=== PATIENT | female | born 2000 | race Caucasian/White ===

== ENCOUNTER 2023-10-17 08:24 | Outpatient (OUT) | payer MEDICAID, SELFPAY ==
--- NOTE | 2023-10-17 08:26 | US_ITS ---
The [address] [address] Patient Name: SHERLY ERICKSON MRN: [id number] date: 2000 Sex: F Assigned Patient Location: [facility] Current Patient Location: [facility] Accession/Order Number: [id number] Exam Date: 10/17/2023 08:27 Report Date: 10/17/2023 13:14 At the request of: JACKIE FOREMAN Procedure: US pelvis w/ transvaginal EXAM: US pelvis w/ transvaginal HISTORY: PCOS COMPARISON: CT abdomen and pelvis 09/13/2020. TECHNIQUE: Real-time transabdominal and transvaginal imaging of the pelvis. Findings: The uterus measures 9.0 x 4.2 x 6.0 cm. The uterus is retroverted. No intrauterine mass. The endometrium is 0.8 cm thick. No fluid within the endometrial canal. Nabothian cysts. The right and left ovaries measure 3.5 x 2.4 x 3.6 and 3.9 x 2.4 x 2.0 cm. There are unremarkable bilaterally with blood flow is identified. No adnexal mass or free pelvic fluid. Pressure 1. Unremarkable sonographic appearance of the pelvis. Electronically authenticated by: MICHELLE MACKEY Date: 10/17/2023 13:14
== END 2023-10-17 08:25 | disposition home or self-care (01) ==
LOC: NOMS 08:24
PROVIDERS: PCP Family Medicine; Visit Provider Obstetrics & Gynecology
DX: E28.2 Polycystic ovarian syndrome (principal)
CPT/HCPCS: 76830; 76856

== ENCOUNTER 2024-06-07 12:35 | Outpatient (OUT) | payer MEDICAID, SELFPAY ==
--- NOTE | 2024-06-07 | US_ITS ---
[address] [address] Patient Name: SHERLY ERICKSON MRN: [id number] date: 2000 Sex: F Assigned Patient Location: [facility] Current Patient Location: [facility] Accession/Order Number: [id number] Exam Date: 06/07/2024 12:40 Report Date: 06/07/2024 15:30 At the request of: JACKIE FOREMAN Procedure: US OB transvaginal EXAMINATION: US OB transvaginal HISTORY: MISSED MENSES COMPARISON: No relevant comparison available. FINDINGS: Transvaginal imaging Smith intrauterine gestation Gestational sac: 2.56 cm, 7 weeks 2 days CRL: 1.70 cm, 8 weeks 1 day Yolk sac: 4.3 mm Heart rate: 160 beats minute Cervix: Closed, 4.66 cm The uterus is normal, retroverted, retroflexed The right ovary is normal measuring 3.2 x 2.6 x 1.5 cm. Left ovary is not visualized Clinical age: 8 weeks 6 days Clinical MIKE: 01/07/2025 Ultrasound age: 8 weeks 1 day Ultrasound MIKE: 01/16/2025 US/US OB transvaginal IMPRESSION: Viable smith intrauterine gestation measuring 8 weeks 1 day Electronically authenticated by: RADHA BALES Date: 06/07/2024 15:30
--- OUTSIDE RECORDS SUMMARY | 2024-06-07 12:56 | XMS_ITS | CCD ---
Author Organization [facility] Care Team Providers Care [employer] Person Name Role Phone Anthony Gomez MD Primary Care Provider Unavailable Primary Care Provider UnavailKENYA Gonzales Attending Unavailable PROVIDER, UNKNOWN Admitting Unavailable CELESTE, JACKIE Attending Unavailable CELESTE, JACKIE Attending Unavailable CELESTE, JACKIE Attending Unavailable Anthony Gomez Primary Care Unavailable CELESTE, JACKIE R Attending Unavailable CELESTE, JACKIE R Admitting Unavailable Anthony Gomez Primary Care Unavailable Sreedhar Cheney Attending Unavailable Sreedhar Cheney Admitting Unavailable Anthony Gomez Primary Care Unavailable Pam Gao Attending Unavailab Pam Vuong Admitting Unavailab arlen Tellez PAC, Spenser Gallegos Attending Unavailable Tellez PAC, Spenser Gallegos Admitting Unavailable Anthony Gomez Primary Care Unavailable Anthony Gomez Primary Care Unavailable Anthony Gomez Primary Care Unavailable CELESTE, JACKIE R Attending Unavailable CELESTE, JACKIE R Admitting Unavailable Anthony Gomez Primary Care Unavailable CELESTE, JACKIE R Admitting Unavailable CELESTE, JACKIE R Attending Unavailable Anthony Gomez Primary Care Unavailable Anthony Gomez Attending Unavailable Antohny Gomez Primary Care Unavailable CELESTE, JACKIE R Admitting Unavailable CELESTE, JACKIE R Attending Unavailable Anthony Gomez Primary Care Unavailable CELESTE, JACKIE R Admitting Unavailable CELESTE, JACKIE R Attending Unavailable Allergies Allergy Classification Reported Allergen(s) Allergy Type Date of Onset Reaction(s) Facility (1 source) No Known Medication Allergies; Translations: [No Known Medication Allergies] Propensity to adverse reactions to drug (disorder) [facility] Repository Medications Current Medications Medication Drug Class(es) Dates Sig (Normalized) Sig (Original) amoxicillin 500 mg oral tablet (2 sources) Penicillin-class Antibacterial Start: 09-30-2023 End: 10-10-2023 take 1 tablet by mouth in the morning, then take 1 tablet by mouth in the evening, then take 1 tablet by mouth at bedtime amoxicillin (Amoxil) 500 MG tablet Take 500 mg by mouth in the morning and 500 mg in the evening and 500 mg before bedtime. 0 09/30/2023 10/10/2023 Active 24 hr metFORMIN hydrochloride 500 mg extended release oral tablet (2 sources) Biguanide Start: 10-06-2023 End: 11-05-2023 take 1 tablet by mouth every twenty-four hours at mealtime metFORMIN XR (Glucophage-XR) 500 MG 24 hr tablet Indications: Irregular periods/menstrual cycles , Insulin resistance Take 1 tablet (500 mg) by mouth in the evening. Take with meals Do not crush, chew, or split. 30 tablet 11 10/06/2023 11/05/2023 Active Problems Problem Classification Problem Date Documented Da te Episodic/Chronic Disorders of teeth and jaw (4 sources) Tooth eruption disorder; Translations: [Disturbances in tooth eruption] Onset: 04-24-2024 04-24-2024 Episodic Menstrual disorders (2 sources) Irregular periods; Translations: [Irregular menstruation, unspecified] 10-04-2023 Chronic Other endocrine disorders (2 sources) Polycystic ovary syndrome; Translations: [Polycystic ovarian syndrome] 10-06-2023 Chronic Other nutritional; endocrine; and metabolic disorders (2 sources) Insulin resistance; Translations: [Insulin resistance] 10-06-2023 Chronic Results Test Name Value Interpretation Reference Range Facility Coding Summaryon 06-05-2024 [facility] AsrszdgyHYo2dVh+PGhlYW Q+OG4DEDYzW75ruUSjmJ0z I8WBHVcRUrokOGAUPOsMJu TahbLuQJ6njBWkYKSx IC8+LU2nPAFeKfdcvBJxw3 S4aZH4R18xls0uZNvluPT4 UUKmUjCdkjqra9nbdZe2GC cuNmluOyBt PQOcyW91ZAP5wT73Rh93qL AzpESni7hlrJh5GtKzZWMm KZZ0mKylSOdqk9GbTKCcK8 9kbYOku9D2 OCMqrLeuwQDxUuZpeBZ7pU 1cJAayftwif9lwuuhyIoj9 ds93dOOce8J2xWZ0F4Fmmb Q2RYKcxLLz GdounPNZoZ8agcjlf7bkhj vcBlLzOVRxQAg7INr1GCAp uPrcWrOeKF05RTB9PSSpyy QdK5DtKJRs kUcnYyI9w0A0Ey4TM6UCSu avP2CEIQVHEQvonLK+PC90 dk14K8UeZnsqAth5QZGzMX O1gCS7aB4h OWIoCRarm6M4oGK2L3Pcuj Znhv7qq7idUICpCWpoD04v kFZup8Y5ESKwkOY7OABuvW glHoZewP47 Oyc+SIHzuLkbu6FsWbxzh3 jsv4ipiKy2MmrjFKMrheSe uHesHQR6p2LsOe4yCMIxlV J8eCA6eQ2h IeGtVwM0IHivC507AvOftL UiHsssN95qP2BfgKL+PHRy Ltt3UPAezPfwUI9xB2KtNW RpbmctbGVm kAsrTM2fYDXpqhbkTMWetW 5xSOOyI5g7XsQzMtW6FAui I0SoNJJxljmuNk54rZ9hUd GzWiE6JKgk Z0XaafR7KDDslIXiXEyfWS F6F32wr2P8QNCiMKYaHKL7 gCV8wW4lvOfpydbwjZCxyB sgdmVydGlj DSvwMKmoP116LQLujRpbGb NvZGluZyBEYXRlOiAgMTAv MDEvMjAyNDwvdGQ+PHRkIH M6wNvtFWEl nKMqUIsjBj3uiVjjzHimZR 1wLXXgxivsACXehA9zHWYb dBUtzHbsPN7fRUDrybogk1 47EiTpDZX5 KOUcuLBnP3JyxP9cOwHwAE AuPYTxU1EbaHJfYYwaU281 DTxrOmH6SGIvbsDeF1GaCJ FsaWduOiB0 o5C4Jn4Rb3MryqwqR1EzuX OoHwFuJmvuKDa1H3TdUizm dHI+QK29NKQgMU75MIv0PH B0dWjxXQez LXUdN5NkoC9kLkYnBUFsMI RkOyc+PHRhYmxlIHdpZHRo XZgvOQGhIdAplSxeJQ1qMh 9yZGVyLWNv yJtiwQBzPgEvu6ujTOImZF lyYP8qtFwwM5CndRG1KFIe l2p1Hn85R52bO6CokJB+PG YjwYT7jCY1 oY8yVoEmPzG3SZnrZ418Xv SrvSDsAffxn8kzz3uofWq6 ToO8LUCptlPaaFzlVDY2a0 YrNa00O84b IHdpZHRoPSIxNSUiIHZhbG ldzy3zqG6dHg0+PGNvbCB3 tVH4zT5dFxOvKwZ0BQdvM3 49InRvcCIv Mtmqt2ttq1ddbVl9EbEyCZ ZnenWilBesZEP8c5FrNo10 B2SnsQydq5LnLwt2dy05wF Wma3Y2nEG7 Z1PoKDFwgmhrtUWlgMcuAQ 6tGEQwvuhfUVJbpK9nILQh R0x7NcWkYnE5ROvhR4Citl G1HSZckGLz JYDagLTAwD6ipigjb7cwry vwGeWbYSNeVQh3UWy3CHXy aYvfZrIzWTC5YqE0OUF6yU XwfV5ihTyr dfjyeI7hOud+QNN2lHBbpM DSNC2qMbmusWP+PHRkIHN0 wXwsSUtiYVIcbY0tOTGqO3 p7AvXlGuC8 KTolE3GbeuJ6EBDhyZHrBS RxtPIQwF1pesvuu6eewtyj DpMlMXNbUZy6QFb1RFEgtR duOiBsZWZ0 FyC0UZG6uBHlhW4mbLiftt wkxF6oIjm+QmlydGggRGF0 BFi5J6JfRgu3SXDmrAbfRW 0ncGFkZGlu Xs0krCivyTijFN2xQJYmzf cti347YnHvu8sdFCPmxIHc EHnvBDM5M88yp2X0UAYeWB QfHVZ3pXA8 zY1hgMkwqohvoZUbzKzvwa SjpZnkHTaiIWlwB414LDSw vGcjZxUcLTg0Y4XmKhs8WI PmxZxzYW2l cZQuOTdfLy8zhApycCoxQV 6rCFIpwynqj215OiOaa9eu EJWqfFIrBBvrXTR3M33fo0 U0XTDtZVTi TXG4xZF6hN9gfQhvcquzvF VmdDsgdmVydGljYWwtYWxp L480OPJazXdwXwPupFz1M6 WbJpq7NNJk iKbvMC1xcMZdNOnbPr9evH zhiTbtHY3zPRMwnnvun292 LbLmi7jrLJKbpUXgCXzmLP B3K18so2V7 WRAnJIMhEQI3xFB9kQ2vhM lnbjogbGVmdDsgdmVydGlj VRvrQKhkO669VBCanHncHy BhdGllbnQg TIikYJk4W4IcZcvapBT+PC 21GYEhWT65hESwcWDaz4wo hGa7YfTuLVLkYOS0vUnePV msa3BzBVDa G35quAYwp6N8NCNyrKbczO RgOpRomVK5oB1eALgzpwip n2pqyrqaPlgne9twgo34tJ 27G94rPPqg ZHRoPSIzMCUiIHZhbGlnbj 4lpF9fXo2+WYYwgVC5cEG2 iD2wKMKdQsY0ZDppL206Ld RvcCIvPjxj g9rjy7zqhAr5FsR1WNJids LjiJspANQ1l0VqOz32A39n IHdpZHRoPSIyMCUiIHZhbG czpb0ueS6k Ii8+VIPmkDM6pXM2eQ6lOo WlRvP3MOjtU900XpMetGVn KsyrS30fZ5LjsID+PHRyPj f7FSHwnVsb HA0uwWXgKHvvMd7qKPK4Cv KxIcZwESanW8AwWDEauwsj xxlkbPX2XXLoHWCdmY22Gd 9udDogMTBw zNIIcP5diyvtt7phsvgdFv WwEMOnAXl0EYw0VGTrhXsd WbZfVXC5RnO5ITN1yHNyrA 1hbGlnbjog sA4eG0OaUPJknziqIy59kE 5iNhMaUrS3BLgcNma+Q1JB G5ZPHoMbGTDEYUICUuXePX lDSEVMTEU8 J7UzCrb7ONUgqXuxQW4tdU OpTLwtJu2epLrsuRucYP1d FJCfeqyySSWptK1wZPIkgE XcbYjrMJ1q BYCvygvxq707AmAvMCR0JZ MglXSdA9ZglT1mYlWqMFIb KUBcE3VebYUdNPazA903IA bcZlS4DIWx axFjT7VuYIVtqIfkJkI7v1 A0Ko6sOb6jLU9vHOw3XS93 ZU19sJZbq5B7mJB3J7MjCZ Rpbmctcmln pPJ9ZIHxSARjdK44pFMzFB yxHd2uf0X9n790FZChPAYv xJ23Lq6lwRpcLJLyiJYWtE 4yymctz2tc xidaCjKnDXUqZRf7PDh9LF GweCboMvZvGXC3CaT7OKN3 iGMllV2hzSkywhszvM0kZu c+MjYgWWVh rtW1W5QrOqu1SCEywAmoSF 5huJCzEAlmTu1mpOovtMdx PJ5yZSYcqjljWGYkkG9mDO JvdHRvbTog ZZ4qTJLmwgctw358BoFkRI H7TFFieDDtL5RdbK0wBjLx JRItXLRyO8DyaIIxUHzfC7 47JZmjChU6 JHLxaxEcJ1PhUQGdpKwvFf O3o4U5Hr1UZQ8OKFQ8E8We Ivi8XZSoeKhcJB6ccYFcHI diHd4gyXcl mHpiSD9tIVDooppsGGWopT 1dHYJasWAcaYhvZZ4oZXMy qguub492PrJxJLA2XBXlgR IbB6FcvI6i WjCcUOEbIMMkQ5RvzBTjFK grG529QKigZcE6HSJdcaZe F1IyHTPhbMbsVdX6c3Z0Wr 5PUDwvdGQ+ SD67nm41W6YtMxozDnu2BI XkZRV1aKC7sN4dQNKeLNxu n1B8wJG4J7FcllOnom0cs9 xsYXBzZTog R66qiIBmt9M2JIAimWF6EM NscLscHiPulS46Mvt+PGNv mHvdu6LoDgmac0ueg2litD h3YiOuRISk egPzfXvpFQD9p4PnCk15Y0 9sIHdpZHRoPSIzMCUiIHZh sSzhsv7wrV7aTf2+PGNvbC T8fYD1gQ2q EqXdIqK4UXdtO175McLilC MtSkafj4itc8senJk0PmIp WFIuwmEhcSyuCMK1c7XdFc 28U7NqwGuw n5DcSpw7zh91nXSxq4S6xL T0X5DlZEMlezuykMDmiLry SQ2iXBHfloiuBYFgwE2cGK SzM7f7RrBy BwV5XGnpG7RhalN5DIKoaH VsFEPrqRXBzO3ldjyni0fu voupVnTbUUWcLOg8LHh1RQ FsaWduOiBs TRS1FwW5HQK3sJZrrY0fhF cfvbivrO7xXek+JDn2v2yq pFIxIY6khMO4PR53BQ44kO Cji1I6kAK5 D0UbSBXfglwnduvibFD2QK JrCEExiE89We1pjLlzWi7k HXZtLUG7NNNvmZJoQ4PrfY 9yOiAjMDAw WYFbD3KyhWHvBZaeE150CW kpBhB0YFKzjxPfV2WyJAZe qIqbXvF2g4T0Qm6MQO52SE 23NV43jKNr a3Y3kMC6Q6FsCLNbibqsvr omqBK1UYQxNOTghN82Cp7i jNylSp5fEUIaTRM1KVKkcQ ZfZ3TnjV8u QwEhEGOuFYYoL7XxyJKqKE bxN366OYbfBwY1WCEgzsIx R1PrYQUfhTrgGhX8y2D0Wf 1DCi21NF74 DH70dXTer7W0zDJ3C0NtVF QmzczatadvwPF7TZGdJKCy sZ46Hp0qeCtfUq1lVJRrJP W5ZUWqfDNm H0GvsK1sFsIxZJLfUKIiH9 LuiSQbVXchA217UGkoOnE3 HCGkbuEmW5XtREDfhOzcRe M2q1D6Ir8W DMlihfj7W1MeXvfoiWG+PC 92OLNgXO02cCEdmWBch2qd mCg6DxLqYWNtISB5bPplIK laa3SzYNPc Y29 (more content not included)... [facility] Office/Clinic Noteon 024 Office/Clinic Note Patient: BONNIE ASTUDILLO Age: 24 years Sex: FEMALE : 2000 Associated Diagnoses: Sciatica of left side Author: Anthony Gomez MD A History of Present Illness 24-year-old female is currently 6 weeks presents today follow-up recent ER visit for low back pain. Is more localized in her left gluteal region radiating down her left leg. More consistent with sciatica. She did have an ultrasound which showed a viable 6-week . Her uterus is retroverted. Denies any trauma. Pain is worse when sitting. Does shoot down her leg. Also when her leg is stretched. No trauma. This is her second first delivered naturally. Review of Systems Constitutional: Negative. Respiratory: Negative. Cardiovascular: Negative. Musculoskeletal: Negative except as documented in history of present illness. Health Status Allergies: Allergic Reactions (Selected) No Known Medication Allergies, Allergies (1) Active Severity Reaction No Known Medication Allergies None Documented Current medications: (Selected) Documented Medications Documented MetFORMIN (Eqv-Glucophage XR) 500 mg oral tablet, extended release: 500 mg = 1 tab(s), Oral, Daily, 0 Refill(s) escitalopram 10 mg oral tablet: 10 mg = 1 tab(s), Oral, Daily, 30 tab(s), 0 Refill(s) Physical Examination VS/Measurements Vital Signs 06/01/2024 13:30 EDT Peripheral Pulse Rate 68 bpm Systolic Blood Pressure 120 mmHg Diastolic Blood Pressure 80 mmHg BP Site Left arm SpO2 99 % , Measurements from flowsheet : Measurements 06/01/2024 13:30 EDT Height 170.0 cm Height/Length Measured (inches) 66.93 in Weight 113.04 kg Weight Measured (lbs) 249.21 lb Weight Dosing 113.040 kg Body Mass Index 39.11 kg/m2 [place] Body Weight Calculated 61.437 kg BSA Measured 2.31 m2 General: Alert and oriented, No acute distress. Musculoskeletal: Positive point tenderness over the left gluteal region as compared to the right. Positive straight leg raise. Positive piriformis muscle sign with external rotation of the hip with adduction towards the opposite shoulder.. Impression and Plan Diagnosis Sciatica of left side ([id number] M54.32). Plan: Discussed with patient stretches she can do to help with her sciatica. They were demonstrated in the office. Will hold off on any steroids.. Orders Orders Evaluation and Management: [id number] Office visit - established pt, Level 3 (Order): 06/01/2024 13:28 EDT, Qty: 1, Sciatica of left side. [Electronically Signed on: 06/01/2024 13:56 EDT] Anthony Gomez MD [Verified on: 06/01/2024 13:56 EDT] Anthony Gomez MD Normal [facility] .Auto Diff 1on 05-28-2024 Auto [place] % 5 % Normal -12 [facility] Comment on above: Performed By: #### 1 [id number], [id number], [id number], [id number] ####[facility] (DEFAULT)[address] [place] [address] Baso Abs# 0.1 x10 Normal 0.0-0.2 [facility] Comment on above: Performed By: #### 1 [id number], 5301697, [id number], [id number] ####[facility] (DEFAULT)[address] [place] [address] Basophils/100 WBC (Bld) 0.6 % Normal 0.2-2.0 [facility] Comment on above: Performed By: #### 1 [id number], 8958508, 3850387, [id number] ####[facility] (DEFAULT)[address] [place] [address] Eos Abs# 0.3 x10 Normal 0.0-0.4 [facility] Comment on above: Performed By: #### 1 [id number], 3797248, 7436008, [id number] ####[facility] (DEFAULT)[address] [place] [address] Eosinophils/100 WBC (Bld) 2.5 % Normal 0.9-4.0 [facility] Comment on above: Performed By: #### 1 [id number], 3141187, 6967991, [id number] ####[facility] (DEFAULT)[address] [place] [address] Lymph Abs# 3.6 x10 High 1.3-2.9 [facility] Comment on above: Performed By: #### 1 [id number], 5105450, 9488501, [id number] ####[facility] (DEFAULT)[address] [place] [address] Lymphocytes/100 WBC (Bld) 27 % Normal 14-48 [facility] Comment on above: Performed By: #### 1 [id number], 8007741, 6820739, [id number] ####[facility] (DEFAULT)[address] [place] [address] [place] Abs# 0.7 x10 Normal 0.0-0.8 [facility] Comment on above: Performed By: #### 1 [id number], 3074161, 6834207, [id number] ####[facility] (DEFAULT)[address] [place] [address] Neut Abs# 8.4 x10 Normal 1.5-9.2 [facility] Comment on above: Performed By: #### 1 [id number], 3265297, 7408218, [id number] ####[facility] (DEFAULT)[address] [place] [address] Neutrophils/100 WBC (Bld) 64 % Normal 44-88 [facility] Comment on above: Performed By: #### 1 [id number], 1096993, 3668364, [id number] ####[facility] (DEFAULT)[address] [place] [address] CBC w/ Auto Diffon 4 Man Diff? Auto Invalid Interpretation Code [facility] Comment on above: Performed By: #### 1 [id number], 7810968, 9696890, [id number] #### [facility] (DEFAULT) [address] [place] [address] Erythrocyte distribution width (RBC) [Ratio] 13.6 % Normal 11.5-15.0 [facility] Comment on above: Performed By: #### 1 [id number], 6327549, 5453525, [id number] #### [facility] (DEFAULT) [address] [place] [address] Hematocrit (Bld) [Volume fraction] 42.0 % High 33.7-40.4 [facility] Comment on above: Performed By: #### 1 7560893, 1577491, 5674783, [id number] #### [facility] (DEFAULT) [address] [place] [address] Hemoglobin (Bld) [Mass/Vol] 13.8 g/dL Normal 11.3-15.9 [facility] Comment on above: Performed By: #### 1 [id number], 4275359, 3261633, [id number] #### [facility] (DEFAULT) [address] [place] [address] 57667 MCH (RBC) [Entitic mass] 28 pg Normal 24-34 [facility] Comment on above: Performed By: #### 1 4798985, 8942527, 6280775, [id number] #### [facility] (DEFAULT) [address] [place] [address] 51502 MCHC (RBC) [Mass/Vol] 33 g/dL Normal 26-37 [facility] Comment on above: Performed By: #### 1 [id number], 8580251, 8080761, [id number] #### [facility] (DEFAULT) [address] [place] [address] 25810 MCV (RBC) [Entitic vol] 86 fL Normal 81-100 [facility] Comment on above: Performed By: #### 1 4381449, 6712611, 7505048, [id number] #### [facility] (DEFAULT) [address] [place] [address] 94179 Platelet 352 x10 Normal 138-427 [facility] Comment on above: Performed By: #### 1 [id number], 5007365, 5314137, [id number] #### [facility] (DEFAULT) [address] [place] [address] 24917 Platelet mean volume (Bld) [Entitic vol] 7.8 fL Normal 6.3-10.2 [facility] Comment on above: Performed By: #### 1 7221446, 8211301, 1597120, [id number] #### [facility] (DEFAULT) [address] [place] [address] RBC 4.90 x10 Normal 3.70-5.30 [facility] Comment on above: Performed By: #### 1 [id number], 4133975, 1222259, [id number] #### [facility] (DEFAULT) [address] [place] [address] WBC 13.1 x10 High 3.5-10.5 [facility] Comment on above: Performed By: #### 1 [id number], 0359750, 7642330, [id number] #### [facility] (DEFAULT) [address] [place] [address] CMP Standardon 05-28-2024 eGFR Non AA >60 Invalid Interpretation Code [facility] Comment on above: Performed By: #### 1 [id number], 5139638, 6241834, [id number] ####[facility] (DEFAULT)[address] [place] [address] 13953 eGFR AA >60 Invalid Interpretation Code [facility] Comment on above: Performed By: #### 1 [id number], 7063885, 2225562, [id number] ####[facility] (DEFAULT)[address] [place] [address] 67927 Albumin [Mass/Vol] 4.4 g/dL Normal 3.5-5.0 [facility] Comment on above: Performed By: #### 1 [id number], 2535613, 2577505, [id number] ####[facility] (DEFAULT)[address] [place] [address] 34210 Albumin/Globulin [Mass ratio] 1.2 {ratio} Low 1.4-2.6 [facility] Comment on above: Performed By: #### 1 [id number], 9459752, 8345374, [id number] ####[facility] (DEFAULT)[address] [place] [address] 83858 Alk Phos 46 IU/L Normal 32-91 [facility] Comment on above: Performed By: #### 1 [id number], 1547503, 4092381, [id number] ####[facility] (DEFAULT)[address] [place] [address] 94202 ALT [Catalytic activity/Vol] 29.0 U/L Normal 14.0-54.0 [facility] Comment on above: Performed By: #### 1 8854081, 5657954, 5581503, [id number] ####[facility] (DEFAULT)[address] [place] [address] 72666 Anion gap [Moles/Vol] 11.4 mmol/L Normal 5.0-19.0 [facility] Comment on above: Performed By: #### 1 3218619, 5300816, 7029489, [id number] ####[facility] (DEFAULT)[address] [place] [address] 14084 AST [Catalytic activity/Vol] 30 U/L Normal 15-41 [facility] Comment on above: Performed By: #### 1 3898960, 3989526, 0859855, [id number] ####[facility] (DEFAULT)[address] [place] [address] 01427 Bili Total 0.4 mg/dL Normal 0.3-1.2 [facility] Comment on above: Performed By: #### 1 0850181, 6962505, 3909882, [id number] ####[facility] (DEFAULT)[address] [place] [address] 37373 Calcium [Mass/Vol] 8.9 mg/dL Normal 8.9-10.3 [facility] Comment on above: Performed By: #### 1 [id number], 5068076, 2861538, [id number] ####[facility] (DEFAULT)[address] [place] [address] 21022 Chloride [Moles/Vol] 104 mmol/L Normal 101-111 [facility] Comment on above: Performed By: #### 1 6953030, 6087822, 6279292, [id number] ####[facility] (DEFAULT)[address] [place] [address] 59894 CO2 [Moles/Vol] 20 mmol/L Low 21-32 [facility] Comment on above: Performed By: #### 1 8498436, 6839369, 7898509, [id number] ####[facility] (DEFAULT)[address] [place] [address] 01456 Creatinine [Mass/Vol] 0.66 mg/dL Normal 0.60-1.30 [facility] Comment on above: Performed By: #### 1 2796643, 6987930, 5158959, [id number] ####[facility] (DEFAULT)[address] [place] [address] 33716 Globulin (S) [Mass/Vol] 3.5 g/dL Normal 1.5-4.3 [facility] Comment on above: Performed By: #### 1 5701518, 5158882, 0893515, [id number] ####[facility] (DEFAULT)[address] [place] [address] 29589 Glucose [Mass/Vol] 100.0 mg/dL Normal 74.0-118.0 [facility] Comment on above: Performed By: #### 1 [id number], [id number], [id number], [id number] ####[facility] (DEFAULT)[address] [place] [address] 62849 Osmolality 263 mOsm/L Invalid Interpretation Code [facility] Comment on above: Performed By: #### 1 [id number], [id number], [id number], [id number] ####[facility] (DEFAULT)[address] [place] [address] 67947 Potassium [Moles/Vol] 3.4 mmol/L Low 3.6-5.1 [facility] Comment on above: Performed By: #### 1 [id number], [id number], [id number], [id number] ####[facility] (DEFAULT)[address] [place] [address] 72013 Protein [Mass/Vol] 7.9 g/dL Normal 6.5-8.1 [facility] Comment on above: Performed By: #### 1 [id number], [id number], [id number], [id number] ####[facility] (DEFAULT)[address] [place] [address] 28348 Sodium [Moles/Vol] 132.0 mmol/L Low 136.0-144.0 [facility] Comment on above: Performed By: #### 1 [id number], [id number], [id number], [id number] ####[facility] (DEFAULT)[address] [place] [address] 16552 Urea nitrogen [Mass/Vol] 9 mg/dL Normal 8-26 [facility] Comment on above: Performed By: #### 1 [id number], [id number], [id number], [id number] ####[facility] (DEFAULT)[address] [place] [address] 39758 Urea nitrogen/Creatinine [Mass ratio] 13.6 mg/mg Normal 4.6-16.2 [facility] Comment on above: Performed By: #### 1 [id number], [id number], [id number], [id number] ####[facility] (DEFAULT)[address] [place] [address] 03772 ED Clinical Summaryon 2023 ED Clinical Summary [facility] - Emergency Department [address] [place] [address] ED Clinical Summary PERSON INFORMATION Name: BONNIE ASTUDILLO Age: 24 Years Sex: FEMALE : 2000 MRN: Acct#: Visit Reason: Back pain; Abdominal pain - ; ABD PAIN LT SIDE, LT LEG NUMB Arrival: 05/28/2024 14:14:57 Discharge: 05/28/2024 17:55:00 LOS: 000 03:41 Check In: 05/28/2024 14:14:57 Checkout:05/28/2024 17:55:00 Address: [address] [place], [place] [id number] PCP: Jason MCNEAL, Anthony Santo PROVIDER INFORMATION Provider Role Assigned Unassigned Evonne Cheung PA-C ED PA 05/28/2024 14:19:07 Daisy Freire CHEMISTRY INTERN Nurse 05/28/2024 14:26:14 VITALS INFORMATION Vital Sign Triage Latest Temperature Tympanic Temperature Temporal Artery Pulse Rate 75 bpm 78 bpm O2 Sat 100 % 99 % Respiratory Rate 16 br/min 16 br/min Blood Pressure /69 mmHg /69 mmHg MEDICAL INFORMATION Medications Given: Medication Dose Route acetaminophen (Tylenol) 1000 mg Oral Allergy Information: No Known Medication Allergies PHYSICIAN DOCUMENTATION DISCHARGE INFORMATION: Discharge Disposition: Home Discharge Location: Home PATIENT EDUCATION INFORMATION Instructions: Muscle Strain, [id number]; Sciatica, Tsgo-ku-Cokj; Back Exercises, Anjz-vk-Djeu Follow-Up: With: Address: When: Anthony Gomez MD [address] [place] [address] Within 3 to 5 days DIAGNOSIS: 1:6 weeks gestation of ; 2:Low back pain with left-sided sciatica; 3:Pain in the side Patient Understands: Yes - Patient/family/caregiv er verbalizes understanding of instructions given Comment: [facility] ED Clinical Summary [facility] ? Urgent Care [address] [place] [address]53 Clinical Summary PERSON INFORMATION Name: BONNIE ASTUDILLO Age: 24 Years Sex: FEMALE : 2000 MRN: Acct#: Visit Reason: UC - Abdominal Pain; LT SIDE PAIN, LEG PAIN Arrival: 05/28/2024 14:07:02 Discharge: 05/28/2024 14:10:00 LOS: 000 00:03 Check In: 05/28/2024 14:07:02 Checkout: 05/28/2024 14:10:00 Address: [address] [place], [place] [id number] PCP: Anthony Gomez MD PROVIDER INFORMATION Provider Role Assigned Unassigned Spenser Fang ED PA 05/28/2024 14:10:16 VITALS INFORMATION Vital Sign Triage Latest Temperature Tympanic Temperature Temporal Artery Pulse Rate O2 Sat Respiratory Rate Blood Pressure / / MEDICAL INFORMATION Medications Given: Allergy Information: No Known Medication Allergies PHYSICIAN DOCUMENTATION DISCHARGE INFORMATION: Discharge Disposition: Home Discharge Location: PATIENT EDUCATION INFORMATION Instructions: Follow-Up: DIAGNOSIS: Abdominal pain, acute, left upper quadrant; Acute left flank pain; Currently Patient Understands: Comment: [facility] ED Note-Nursingon 05-28-2024 ED Note-Nursing Compliance Administrator at bedside while US was performed. pt tolerated well [facility] ED Note-Nursing Pt ambulatory back t o ED RM 6 C/O left leg pain, numbness and tingling that started 3 days ago. Pt also C/O LUQ pain that started today that radiates to her back. Pt last period started on apr 07, 2024, pt had two positive test. pt denies N/V, diarrhea. pt denies taking any medication due to being . Pt stated i googled and think its muscle/ nerve pain, cause i have numbness and tingling in my feet Pt denies any falls or injuries. Pt is A/Ox4 call light within reach [facility] ED Patient Summaryon 024 ED Patient Summary [facility] - Emergency Department [address] [place], [place] [id number] PATIENT DISCHARGE INSTRUCTIONS Patient Information Name: BONNIE ASTUDILLO Age: 24 Years Date of : 2000 Reason For Visit: Back pain; Abdominal pain - ; ABD PAIN LT SIDE, LT LEG NUMB Arrival Time: 05/28/2024 14:14:57 Primary Care Physician: Anthony Gomez MD Attending Physician: Pam Gao MD Comment: Visit Diagnosis: Diagnoses This Visit 6 weeks gestation of (Z3A.01) Abdominal pain - ([id number]) Back pain ([id number]) Low back pain with left-sided sciatica (M54.42) Pain in the side (R10.9) The Pharmacy at [facility] is open Tuesday through Tuesday from 9A to 6P and Tuesday and Tuesday from 9A to 5P Prescription Information: If you have been given a prescription for narcotics, seek immediate medical attention if you have any difficulty breathing or any sudden status changes such as confusion and sleepiness. If you or anyone you know is experiencing suicidal thoughts, mental health, alcohol and/or drug addiction problems; contact the [facility] [place] 28/03 Crisis Hotline -Text 4HEMI oc 842206. If you received any narcotics, sedation, or any other medication that causes drowsiness for the next 24 hours, unless otherwise directed: ? Do not drive a car. ? Do not operate machinery such as power tools, lawn mowers, drills, sewing machines, or stoves ? Avoid alcoholic beverages and drugs for allergies, nerves, or sleep ? Do not make important personal or business decisions or sign any legal documents With: Address: When: Jason MCNEAL, Anthony Santo [address] [place], [place] [id number] Within 3 to 5 days Medication Information: The exam and treatment you received today in the [facility] Emergency Department were for an urgent problem and are not intended as complete care. It is important for you to follow up with a doctor, nurse practitioner, or physician?s life enrichment assistant for ongoing care. If your symptoms become worse or you do not improve as expected and you are unable to reach your usual health care provider, you should return to the Emergency Department, we are available 24 hours a day. For those patients who have received Radiology results, the interpretation of your X-ray as given to you by our Emergency Department physician is only a preliminary report. The Radiologist will review your films and if there is a change in the diagnosis you will be notified by phone. Please make sure you have provided a working phone number so we can reach you if necessary. In the event that you had a lab culture while you were a patient in the Emergency Department, you will be notified by phone if there is a need to change your antibiotic. Please make sure you have provided a working phone number so we can reach you if necessary. [facility] Emergency Department has provided you with a complete list of medications post discharge. Please inform your slope hoist operator/provider of your visit and for further instruction on these medications. Any specific questions regarding your chronic medications and dosages should be discussed with your primary care physician(s) and/or pharmacist. Additional medications on your home medication list not specifically addressed. Please contact the ordering physician if you have questions about these medications. escitalopram (escitalopram 10 mg oral tablet) 1 tab(s) Oral (given by mouth) every day. metFORMIN (MetFORMIN (Eqv-Glucophage XR) 500 mg oral tablet, extended release) 1 tab(s) Oral (given by mouth) every day. Visit Information Allergies: Substance Reaction Symptoms Type Comments No Known Medication Allergies Drug Vital Signs: Vitals and Measurements this Visit (last charted value for your 05/28/2024 visit) Vital Signs This Visit Temperature Oral: 36.8 DegC Peripheral Pulse Rate: 78 bpm Heart Rate Monitored: 58 bpm Respiratory Rate: 16 br/min Systolic Blood Pressure: 91 mmHg Diastolic Blood Pressure: 60 mmHg Mean Arterial Pressure, Cuff-Calculation: 70 mmHg Mean Arterial Pressure Cuff-Monitor: 72 mmHg SpO2: 99 % Oxygen Therapy: Room air Measurements This Visit Height/Length Measured: 170 cm Weight Measured: 108.86 kg Weight Dosin.860 kg Body Mass Index: 37.67 kg/m2 Problems List: Problem Onset Comments Depression None Polycystic ovarian syndrome Patient Education Muscle Strain A muscle strain, or pulled muscle, happens when a muscle is stretched beyond its normal length. This can tear some muscle fibers and cause pain. Usually, it takes 1?2 weeks to heal from a muscle strain. Full healing normally takes 5?6 weeks. What are the causes? This condition is caused when a sudden force is placed on a muscle and stretches it too far. This can happen (more content not included)... Normal [facility] ED Patient Summary [facility] ? Urgent Care [address] [place] [address] PATIENT DISCHARGE INSTRUCTIONS Patient Information Name: BONNIE ASTUDILLO Age: 24 Years Date of : 2000 Reason For Visit: UC - Abdominal Pain; LT SIDE PAIN, LEG PAIN Arrival Time: 05/28/2024 14:07:02 Primary Care Physician: Anthony Gomez MD Attending Physician: Spenser Fang Comment: Patient Education Medication Information: The exam and treatment you received today in the [facility] Emergency Department were for an urgent problem and are not intended as complete care. It is important for you to follow up with a doctor, nurse practitioner, or physician?s life enrichment assistant for ongoing care. If your symptoms become worse or you do not improve as expected and you are unable to reach your usual health care provider, you should return to the Emergency Department, we are available 24 hours a day. For those patients who have received Radiology results, the interpretation of your X-ray as given to you by our Emergency Department physician is only a preliminary report. The Radiologist will review your films and if there is a change in the diagnosis you will be notified by phone. Please make sure you have provided a working phone number so we can reach you if necessary. In the event that you had a lab culture while you were a patient in the Emergency Department, you will be notified by phone if there is a need to change your antibiotic. Please make sure you have provided a working phone number so we can reach you if necessary. [facility] Emergency Department has provided you with a complete list of medications post discharge. Please inform your slope hoist operator/provider of your visit and for further instruction on these medications. Any specific questions regarding your chronic medications and dosages should be discussed with your primary care physician(s) and/or pharmacist. Medications to Continue That Have Not Changed Other Medications escitalopram (escitalopram 10 mg oral tablet) 1 tab(s) Oral (given by mouth) every day. metFORMIN (MetFORMIN (Eqv-Glucophage XR) 500 mg oral tablet, extended release) 1 tab(s) Oral (given by mouth) every day. Visit Information Visit Diagnosis: Diagnoses This Visit Abdominal pain, acute, left upper quadrant (R10.12) Acute left flank pain (R10.9) Currently (Z34.90) UC - Abdominal Pain ([id number]) If you received any narcotics, sedation, or any other medication that causes drowsiness for the next 24 hours, unless otherwise directed: ? Do not drive a car. ? Do not operate machinery such as power tools, lawn mowers, drills, sewing machines, or stoves ? Avoid alcoholic beverages and drugs for allergies, nerves, or sleep ? Do not make important personal or business decisions or sign any legal documents Reason for Visit: Allergies: Substance Reaction Symptoms Type Comments No Known Medication Allergies Drug Vital Signs: Vitals and Measurements this Visit (last charted value for your 05/28/2024 visit) No vitals and measurements documented Problems List: Problem Onset Comments Depression None Polycystic ovarian syndrome Major Tests and Procedures: The following procedures and tests were performed during your ED visit. Laboratory Radiology Cardiology Viruses or Bacteria What?s got you sick? Antibiotics only treat bacterial infections. Viral illnesses cannot be treated with antibiotics. When an antibiotic is not prescribed, ask your healthcare professional for tips on how to relieve symptoms and feel better. Usual Cause Illness Viruses Bacteria Antibiotic Needed Cold/Runny Nose NO Bronchitis/Chest Cold (in otherwise healthy children and adults) NO Whooping Cough Yes Flu NO Strep Throat Yes Sore Throat (except strep) NO Fluid in the middle ear (otitis media with effusion) NO Urinary Tract Infection Yes Antibiotics Aren?t Always the Answer www.cdc.gov/getsmart GET SMART Know When Antibiotics Work U.S. Department of Health and Human Services Centers for Disease Control and Prevention May 2014 [facility] Lactic Acidon 05-28-2024 Lactic Acid 9.1 mg/dL Normal 4.5-19.8 [facility] Comment on above: Performed By: #### 2 [id number] #### [facility] (DEFAULT) [address] [place] [address] UA Vhqyr2yo 05-28-[address] [facility] Comment on above: Order Comment: Urina lysis Microscopic order added on by [employer] Rules system. Performed By: #### 5 [id number], [id number] #### [facility] (DEFAULT) [address] [place] [address] UA RBC None Seen [facility] Comment on above: Order Comment: Urina lysis Microscopic order added on by [employer] Rules system. Performed By: #### 5 [id number], [id number] #### [facility] (DEFAULT) [address] [place] [address] [address] Squam Epi Moderate [facility] Comment on above: Order Comment: Urina lysis Microscopic order added on by [employer] Rules system. Performed By: #### 5 [id number], [id number] #### [facility] (DEFAULT) [address] [place] [address] [address] WBC 0-2 [facility] Comment on above: Order Comment: Urina lysis Microscopic order added on by [employer] Rules system. Performed By: #### 5 [id number], [id number] #### [facility] (DEFAULT) [address] [place] [address] UA w Culture if Ind Standard on 05-28-[address] [facility] Comment on above: Performed By: #### 5 [id number], [id number] #### [facility] (DEFAULT) [address] [place] [address] Color (U) Straw [facility] Comment on above: Performed By: #### 5 [id number], [id number] #### [facility] (DEFAULT) [address] [place] [address] Culture? Not Indicated Invalid Interpretation Code [facility] Comment on above: Result Comment: Resu lt created by rule GL_MAGR_ADD_UA_CULT Result created by rule GL_MAGR_ADD_UA_CULT Performed By: #### 5 [id number], [id number] #### [facility] (DEFAULT) [address] [place] [address] Glucose (U) [Mass/Vol] Negative [facility] Comment on above: Performed By: #### 5 [id number], [id number] #### [facility] (DEFAULT) [address] [place] [address] Ketones Ql (U) Negative [facility] Comment on above: Performed By: #### 5 [id number], [id number] #### [facility] (DEFAULT) [address] [place] [address] Micro? Indicated Invalid Interpretation Code [facility] Comment on above: Result Comment: Resu lt created by rule GL_MAGR_ADD_UA_MICRO Performed By: #### 5 [id number], [id number] #### [facility] (DEFAULT) [address] [place] [address] [facility] Comment on above: Performed By: #### 5 [id number], [id number] #### [facility] (DEFAULT) [address] [place] [address] UA Blood Negative Normal [facility] Comment on above: Performed By: #### 5 [id number], [id number] #### [facility] (DEFAULT) [address] [place] [address] UA Clarity SL CLOUDY Abnormal CLEAR [facility] Comment on above: Performed By: #### 5 [id number], [id number] #### [facility] (DEFAULT) [address] [place] [address] UA Leuk Est SMALL Abnormal NEGATIVE [facility] Comment on above: Performed By: #### 5 [id number], [id number] #### [facility] (DEFAULT) [address] [place] [address] UA Nitrite Negative Normal NEGATIVE [facility] Comment on above: Performed By: #### 5 [id number], [id number] #### [facility] (DEFAULT) [address] [place] [address]21 UA pH 6.0 Normal 5-8 [facility] Comment on above: Performed By: #### 5 [id number], [id number] #### [facility] (DEFAULT) [address] [place] [address] UA Protein Negative Normal NEGATIVE [facility] Comment on above: Performed By: #### 5 [id number], [id number] #### [facility] (DEFAULT) [address] [place] [address] UA Spec Grav 1.010 Normal 1.001-1.035 [facility] Comment on above: Performed By: #### 5 [id number], [id number] #### [facility] (DEFAULT) [address] [place] [address] UA Urobilinogen 0.2 mg/dL Normal 0.2-1.0 [facility] Comment on above: Performed By: #### 5 [id number], [id number] #### [facility] (DEFAULT) [address] [place] [address] Urine Source Clean Catch Normal [facility] Comment on above: Performed By: #### 5 [id number], [id number] #### [facility] (DEFAULT) [address] [place] [address] US 1st Trimesteron 05-28-2024 US 1st Trimester EXAM: US 1st Trimester HISTORY: ectopic COMPARISON: None. TECHNIQUE: Transabdominal and endovaginal ultrasound of the pelvis with marlow scale and Doppler interrogation. FINDINGS: The uterus is retroverted, with a single intrauterine gestational sac for which the crown-rump length measured 5.4 mm, corresponding to 6 weeks 2 days. The secondary yolk sac was visualized. The heart rate was obtained at 129 bpm. The right ovary was not identified. The left ovary is normal in size and echogenicity with an intrinsic blood flow obtained with color Doppler. No free fluid is seen within the pelvis. IMPRESSION: 1. Single intrauterine with an estimated gestational age by ultrasound of 6 weeks 2 days. 2. heart rate-129 bpm. 3. No evidence for left ovarian torsion. 4. Right ovary not visualized. Final Dictated by: Anthony Yeh MD Dictated DT/TM: 05/28/24 7:23 Signed (Electronic Signature): Anthony Yeh MD 05/28/24 7:34 pm Technologist: [facility] US Transvaginalon 05-28-2024 US Transvaginal EXAM: US 1st Trimester HISTORY: ectopic COMPARISON: None. TECHNIQUE: Transabdominal and endovaginal ultrasound of the pelvis with marlow scale and Doppler interrogation. FINDINGS: The uterus is retroverted, with a single intrauterine gestational sac for which the crown-rump length measured 5.4 mm, corresponding to 6 weeks 2 days. The secondary yolk sac was visualized. The heart rate was obtained at 129 bpm. The right ovary was not identified. The left ovary is normal in size and echogenicity with an intrinsic blood flow obtained with color Doppler. No free fluid is seen within the pelvis. IMPRESSION: 1. Single intrauterine with an estimated gestational age by ultrasound of 6 weeks 2 days. 2. heart rate-129 bpm. 3. No evidence for left ovarian torsion. 4. Right ovary not visualized. Final Dictated by: Anthony Yeh MD Dictated DT/TM: 05/28/24 7:23 Signed (Electronic Signature): Anthony Yeh MD 05/28/24 7:34 pm Technologist: [facility] Urgent Care Note- Provideron 05-28-2024 Urgent Care Note- Provider Patient: BONNIE ASTUDILLO Age: 24 years Sex: FEMALE : 2000 Associated Diagnoses: Abdominal pain, acute, left upper quadrant; Acute left flank pain; Currently Author: Spenser Fang Basic Information Time seen: Date & time 05/28/2024 14:13:00. CC: Pain under left rib today. Pain wraps around into left flank area Ongoing pain left low back and pain goes into left buttock, down left leg. This is not new for her. Reports begin , unsure how far along. Has not been to OB yet. Health Status Allergies: Allergic Reactions (Selected) No Known Medication Allergies. Medications: (Selected) Documented Medications Documented MetFORMIN (Eqv-Glucophage XR) 500 mg oral tablet, extended release: 500 mg = 1 tab(s), Oral, Daily, 0 Refill(s) escitalopram 10 mg oral tablet: 10 mg = 1 tab(s), Oral, Daily, 30 tab(s), 0 Refill(s). Past Medical/ Family/ Social History Medical history: Resolved Ankle fracture, left ([id number]): Resolved. Ankle impingement syndrome (074747339): Resolved.. Surgical history: Cholecystectomy (99761085).. Family history: Anxiety Father Sister Diabetes mellitus Grandparent Hypertension Father Grandparent Arthritis Grandparent Depression Father Sister Cancer Mother Cataract finding Grandparent ADHD - Attention deficit disorder with hyperactivity Sister Brother Bipolar 1 disorder Father Sister Anxiety Father Brother . Social history: Social & Psychosocial Habits Alcohol 09/30/2023 Alcohol Use: Current Frequency: 1-2 times per year Comment: Socially. Every couple of months. - 02/02/2023 11:53 - Ailin Martinez RN 11/19/2023 Alcohol Use: Current Comment: Denies - 11/19/2023 09:33 - Marisela Soto RN Employment/School 10/28/2021 Status: Employed Exercise 12/01/2021 Exercise type: Walking Comment: 1-2 times a month - 12/01/2021 10:44 - Magnolia Henning Home/Environment 10/28/2021 Lives with: Roomate(s)/Friend(s), Significant other Home equipment: crutches Nutrition/Health 10/28/2021 Caffeine intake amount: 2 cups daily Sexual 12/01/2021 Sexually active: Yes Substance Use 09/30/2023 Substance use: Current Type: Marijuana Frequency: 1-2 times per month 11/19/2023 Substance use: Current Comment: Denies - 11/19/2023 09:33 - Charles ALLRED, Marisela Tobacco 09/01/2021 Smoking tobacco use: Former smoker, quit more 10/28/2021 Smoking tobacco use: 4 or less cigarettes(less 09/30/2023 Smoking tobacco use: Former tobacco user 11/19/2023 Smoking tobacco use: Former tobacco user Number used per day: Stopped smoking 2022 Electronic Cigarette/Vaping 10/28/2021 Electronic Cigarette Use: Former use, quit more denis Type: Nicotine infused Use per Day: 1-25 Inhales/day Comment: just started using yesterday to quit smoking cigarettes - 08/24/2019 12:13 - Demar ALLRED, Mayte 09/30/2023 Electronic Cigarette Use: Use, within last 90 days Type: Nicotine infused 11/19/2023 Electronic Cigarette Use: Use, within last 90 days Type: Nicotine infused Use per Day: 1-25 Inhales/day . Problem list: Active Problems (3) Depression None Polycystic ovarian syndrome . Impression and Plan Diagnosis Abdominal pain, acute, left upper quadrant (TDI80-MS R10.12, Discharge, Medical) Acute left flank pain (HKT21-QG R10.9, Discharge, Medical) Currently (NGL98-MC Z34.90, Discharge, Medical) Plan Condition: Stable, Guarded. Disposition: Discharged: time 05/28/2024 14:15:00. Follow up with: Anthony Gomez Pt seen by provider at triage into . Eval/PE. Deemed necessary for further ED eval. Work-up and tx outside of scope of care. Advised pt to go directly to ER of choice. Pt discharged from . ; Follow up with primary care provider; Follow up with specialist Within 2 to 4 days, only if needed. [Electronically Signed on: 05/28/2024 14:16 EDT] Spenser Fang [Verified on: 05/28/2024 14:16 EDT] Tellez HUMBLEIndradestiney Gallegos Normal [facility] hCG Quantitativeon 4 hCG Quantitative 00305.0 mIU/mL High 0.0-0.6 [facility] Comment on above: Result Comment: Post -Menopausal Reference Range is: 0.1-11.6 mIU/mL Performed By: #### 1 [id number] ####[facility] (DEFAULT)[address] [place] [address] Progress Noteson 04-24-2024 [employer] Authentication Interface Message Text Attestation signed by Kenya Richter DDS at 05/01/2024 9:24 AM Teaching Physician Note: I saw and evaluated the patient. I personally obtained the magallanes and critical portions of the history and physical exam. I reviewed the resident's documentation and discussed the patient with the resident. I agree with the resident's medical decision making as documented in the resident's note. Kenya Richter DDS OMFS PATIENT VISIT CHIEF COMPLAINT: Toothache and Anton Teeth HISTORY OF PRESENT ILLNESS: 24-year-old female presenting referred from dentist for extraction teeth #1, 16, 17, 32. Reports #1 fractured a while ago and all wisdom teeth have been causing on-and-off pain, sometimes significant pain. PAST MEDICAL HISTORY: PCOS with insulin resistance, Choledolithasis s/p cholecystectomy No past medical history on file. There is no problem list on file for this patient. MEDICATIONS: Metformin No current outpatient medications on file. No current facility-administered medications for this visit. ALLERGIES: Patient has no allergy information on record. NKDA SURGICAL HX: No past surgical history on file. Cholecystectomy SOCIAL HX: No Significant findings CLINICAL EXAMINATION Extraoral examination: No significant findings. 5'7 , 248lbs. Intraoral examination: Fractured #1, grossly carious #16, partially erupted #17 and #32 with significant erythema and edema of overlying gingiva and deep pocketing >6mm. Mallampati 2. 50mm JOSSELINE. RADIOGRAPHIC INTERPRETATION: [employer] Film taken on 04/24/2024, and Retained in our clinic files Tooth # Type Orientation Development Adjacent Structures #1 a remaining root tip vertical 100% abutt maxillary sinus floor #16 erupted vertical 100% abutt maxillary sinus floor #'s 17, 32 a partial bony impaction distoangular 100% abutt BONIFACIO canal DIAGNOSIS: Abnormal tooth eruption (Primary Diagnosis) [[id number]] Impacted third molar tooth [[id number]] Caries, Impacted wisdom teeth, and Retained dental root ASSESSMENT: #1 Caries #16 Caries #17 and #32, Partial bony Impaction with pericoronitis PLAN: Surgical extractions #'s 17, 32, Extractions #'s 1, 16, and with local anesthesia Pavan Lee DMD, MD Normal [employer] Curbstone Setter Authentication Interface Message Text Normal [employer] Coding Summaryon 03-28-2024 Coding Summary [facility] KcogqxbcHAe2pTd+PGhlYW Q+ZW0UQBXgE44llLKmzY1g O6TIXOpZGboxUZMNYJiYVf ZezkAePE1ccHBrPFCq IC8+VX1xDJAgXdnhbNZyl4 F9yWH4J69qni5vFHudwFC4 RNBzIbJncopjg1kcuIv5TC cuNmluOyBt PDOsrR99RUU2gW44Kh29vY YhiEUhj8fogJr3BbYoXFZe QUH6bQcuRBepf3XtMNAtS5 2xsSQhd1P4 HBYjvZxapAFqGyClhDX0yI 8vMScwijxqi8ulxnzpOoe1 hh14eUJse2J9kPX0Q7Ghjp F2CRDbgDPf NfbauFUEvB2bbjynj2mtrn ngTdGjTEGtLGb3BVh1XJYp wRzuMlSzSF26APV2LBOzhy YnT2EtGRBw hUjyPqO1w5H2Fh7RG5ZVLf mwN9FIGATXEXnkwUA+PC90 em29Y4EyFvrzJuo1BYBwFD V7oXO6eI8l GBKmKPcrc7W8cCV0N0Xhqc Qrxy7rl2fyVAFlLNhyP42w aOMfu9T6LDIwxIF2OSVssK nsWfCesF44 Oyc+DFXamArru2BcSlzup6 tdd5skaEl0SldwRBSxkyGa vDetYEZ8t6BqKe8hDALlzT C5bLM3fQ8q AoPrNzX2JRtuJ392BhNjxI YiNldpH14bR4FaxYF+PHRy Rxf6RIIouMeaMJ0gT4ZuJT RpbmctbGVm tQzsII1mDXBhmcaeDVAjaS 5rGYHfP1r5AiUtZjO3UCjq W4NnHYEyzemxWd51rM1gKe SnRhD7JJva R5CgwoW9CHOadRObKYukIA Y8X17vn8D9HFVuOJYtARR9 pEB4cW9rpDzxnhcwqZEldK sgdmVydGlj MMynBEwrX547GFGxaDgyYz NvZGluZyBEYXRlOiAgMDcv MjQvMjAyNDwvdGQ+PHRkIH S6vOnfNONi hOPbFEgkRj2jyCjitPnqGH 6uNGKidvyuSFXqyI0iMXHj xXWibAteVD6sEFBrcugbq7 71UtKnHSA1 JUAtxDGyC7ItaN1sQiBdTA TeMBDhU5BtkESsXAfwR063 UWbySqQ7JJHqzfMaL0QhWK FsaWduOiB0 b5L2Jp7Um8VenslkV2WmuC QgVzZnQhthYVe4T5ZxSsim dHI+VI50LLUhYW23ZGi3AE H8jSzpLJzj KEVxV6DwuT8vEcIvBMIbIZ RkOyc+PHRhYmxlIHdpZHRo PFefQGVjPxJcrPokZY0lVk 9yZGVyLWNv cGnnxBHfOtToc2scBATuPX dpGN8saHglD3SdfNN5DWEj h8n4Bw11K95tJ8BmaLX+PG KdfIG5mYL2 dJ8iVyCfVsT9AQfeI010Qg LdqHMyRjzoe6wzm1drbHd0 LvO5CXYexzFreYlkAIC3r8 NhSh82A34p IHdpZHRoPSIxNSUiIHZhbG zdtz4ocA1dQk0+PGNvbCB3 hHI0bD0xYqSrVxV8VFsrV3 49InRvcCIv Gletl6ayl6vtlSd6IiVuSJ KcgmIdkTulUPK8m6DzLe63 O3LxdNjph9UjSad7br32iO Ayi3S5pFC7 E8ZrRESwhnecwTCadNmrWO 1rFONazuelMRBexB4oRSBs Y4p7LcNuYjP5IIgjB7Kcvq S1SFJxbEAy KXVtlETNvQ9rurtci8fgbq wcUuOjXIPdZIj3HHf4EDLa fNmzWqKqGAN0LxF6UOS0gP WcnO1lrHtb zdnrfY2wKmd+MBW7kJBtkG WOIK7zCzrrpQK+PHRkIHN0 sBshVCpyXPVkuY4bPEDkR7 k2ExGfHsB5 DGdbQ7VuufN8WTCfoFJkDA FhtAVRkE5goeunh7chrezq WgHvCKPdBDu3AUl7YXQpfZ duOiBsZWZ0 SbL0JDT7fXBliD0egUmnsa ssrM2yXua+QmlydGggRGF0 CLm3P1OuMhv6NZLfyCexLQ 0ncGFkZGlu Cx9tgAbguShuQQ9bDOUboh urv668MvFtk2lnYBNcdWIm PRbiYMY1O35vq0Q1MFKeHU FqZVY5kIJ3 aE3ogZbeglgovJYkoBmngb LlwSasOReuBIcsH285XBAa uVvbOjEqAMo3W9GtAkd0VD IkrVbcKH8f tOPdVYynNs1msXbjtXrsIP 2tRLNdjibip176JzXja4fh TNKzeCBtZHndPJT2V83rc8 U7ZTChKYYu RCO5eWO0fV4kbFlgqsrlaE VmdDsgdmVydGljYWwtYWxp Z010QSScrQyeTfUzlKr4Z2 MvTwc8JYDo jRxmNM2sxTLzPHfsWl6hvP bisFffMR0kMGQtgwifc123 DmHof9tcNPZovGPdBJjyCO K4D01cu7H1 OEBoASShDOP8qFA8fK7djJ lnbjogbGVmdDsgdmVydGlj SXzoYQnuA785EGXgjGkgOn BhdGllbnQg BWofZUi5S8AqNsszzGW+PC 74AGJsSZ93bAClvBHsm0ky yYy4KdJkWZRpPUR0kRrvGQ mog3TcGWLb Q17rjWYpm9H2RXQbsQgobS BuMuJqgJW1lX5gIRidshgy e9cfnjusOlftq1bdxo88qK 44Y71fVCuh ZHRoPSIzMCUiIHZhbGlnbj 9vgS1kYg5+MTBtfBU3iHZ7 tF6oRQNzVhQ4PAxmJ005Vr RvcCIvPjxj b6mnt1zpsLa8AuA9NTRpkt JjpHuiCEO2k5HtNz98F34z IHdpZHRoPSIyMCUiIHZhbG cetb9srI5q Ii8+ZZCsfTH5nBE0cR9wIz XnTwG6SUpqQ963NnVqjTEr DbajB70pB2TosLH+PHRyPj v6YGUxdLjd FP8ddQLcNQeaNw8tZNO0Ye CzTxFnCVnvP5RjXSLtkyuc guonaUB9PRTwKZOvoP84In 9udDogMTBw vGAFiV2vtsizg3yycowuGk BgQFYlUNp2CKb5XSPivAwa BxDmZLE4KoD1KGA8vPXsdJ 1hbGlnbjog sT4kL7HwYRSoqzbaFc45nG 0mNrIePbD9JKdnNhx+Q1JB B7KDRzWlWXUGXTVLRhTsKF lDSEVMTEU8 Y9LqJkd0CZOrjQhrAX8drE IqIIpkVn2qmCwotOsfJA4w BQJxvwkiBXZuqR1fFRXguY VjkFfdKJ7a OQSwlosfx871LlTuBFV0RO WoeHOqN7EceS6tQyZhLJLb DNKkW1CghPPcLEudZ155RQ kgWkA7LAHn cvRqT4AzKGVgkEnbAbH7a2 F5Pk1fVu9tOE4rJUp9IU02 CZ01sTXpe2X0sDZ7K9CqWF Rpbmctcmln uIX6OFNvZJOipR88jQWwMK liNd7ay8X7a684HERbILJs uH18Da4dqFxdFHDprEGKbI 2zdkaco2qb qqzsGnHlIVHcYJo7JKz9QV JehCfeXvIeOFI5MqU1XVE9 aGLmhT1azMddfwjryT6vAm c+MjYgWWVh ejI3C7UlUbn2EREswHngAE 8xfTVaIAwzIt3mpSyvhZov RX3yQLWagfoqKVUiaS5nXX JvdHRvbTog EZ1aGOVxgfogl515KrXcTT B3DZRrbVCwY6ZsmI8xYxTk RFAlTAHjM5CheGNqPVjtX7 49GSqgFiT9 VSWricBtT4MiPONvoNyiDm X3l9K7Dl2QPU8EHSY5L1Wq Ybz3SGHyxLlpPQ9hbRNuXE rcDr9twEan oNqeBE1gBYQpwvduZJLxaO 3fXWUftUZahLooVM2qMLNk eirgy582RzTqVXP7GDFupD HpN1WdwH7u GgWkITVqGFHaH1KofIJfDQ jbX060BDvqFyP6WPHhaoXn D0VyGUJhfGwdQpG2u4Z9Yj 5PUDwvdGQ+ OH77sc05Y5UrExdfByc9DC GcALI9jWI9eU7cCRJwBZkc j0D6aIJ0D9AqatSuut6fz3 xsYXBzZTog Y52zeTEkz5Y3WWLqoKR8GQ TrqUnhEiJkyN64Xju+PGNv kXlio1XuMqaki9een1hlhO q9TpJyNXPp zxOndPnoYZE7p5QbEa27T9 9sIHdpZHRoPSIzMCUiIHZh kFygcs8psN7mSg6+PGNvbC Q2hOK3dN2l CyYiHyA0XJnhH406IoBsyM IbSdaeu9aml1nleEk7BvDr MODxqqYdmFokWVB8p9EuRh 69V1IipJpm l6HjBni6xs06tBJep1P2pZ I4A7CdASSqltfqoHRvbPxx JR2eGJHbltavWKDitS7gAW DoT7g2LuEv HvB8LIrsF8KagsS8ICRogZ ScJYEluKPBhW8hpqmcq0zb kqhrRgCjOFGlVPs6MNb6CW FsaWduOiBs DOT5QiW0XBM5mMXkmY8nbP tmmqtayH4uLvv+PSi4r0zw jLAdQI7nxWT1AE97HO54qQ Oyb7E8lST7 S1YdTXFxfdgkmwvizMM9VE CbJNWnsE68Rd7syHgzRw0z QUUeLNW2KTWjgYFlA8RjxK 9yOiAjMDAw PIFrG2PqeYFzXXbfQ743FV rzAlA6ZZTxlvEiS0RtNWKv pKjqKdE3l9Q8Ou5TTJ65YE 99UB04kLEs p0K6zDA2E3YuSCTlcknmpx ipiOV9CYGhFTXeuU91Ni3d kImnCc8aDDLrMXP0XSZpcI TxH2QslB7k QiKhAVSzWVZnI7TflYUuAN ekY041VHpfLtG8HQHsmuUv G3KoHNVcuOaoPoV5q0P1Qu 7GNp62XF27 SI26nNCta1F6eKS9M0JiOG InwvkxuahyhEZ6AIUxIOEx aZ78Mh6naIlgNd5dGJWcAD X5CISciYWt G9VhmQ2zXaYgMSUdICVsV5 OtxPLiBDgvF537IYohTgZ4 EPBcnhCaI8PiQHNufGecOn A8m5Y3Fr0Z ROorncv8L9DvEziaqUI+PC 70PIAiFW00jYEkfPWbb0ft jRb6AwTvLBVjFFV3oGbzOB zgp9AtQRAh Y29 (more content not included)... Normal [facility] Progesterone LCon 03-15-2024 Progesterone LC 1.4 ng/mL Invalid Interpretation Code [facility] Comment on above: Result Comment: Foll icular phase 0.1 - 0.9 Luteal phase 1.8 - 23.9 Ovulation phase 0.1 - 12.0 First trimester 11.0 - 44.3 Second trimester 25.4 - 83.3 Third trimester 58.7 - 214.0 Postmenopausal 0.0 - 0.1 Performed At: [facility] [id number] [place], [place] [id number] Sarah Beal PhD Ph:[id number] Performed By: #### [id number] ####[facility] (DEFAULT)[address] [place] [address] Provider Orderson 03-14-2024 Provider Orders [id number] 03 [id number]#1.[address] [facility] Coding Summaryon 02-20-2024 Coding Summary HTMLBase 64 UjadfsivKSx1dYn+PGhlYW Q+XD8DESBzN76slIVbvR3x L3CBVXgFEwcwWKVMHXyACm HxecKhIL5ivBRpKEVm IC8+WL8jUFOlMsnknXUdr4 V9iUA2H24fgi5uTBjheDX7 TZEjSqUsantka8vngIu1DW cuNmluOyBt XVFnlO57BGL0gX64Tz93fY EviSZer6uxgQr9YeFhIXYw HEI9fStaKMpml1GlYRTaC3 7arZOci5R0 MFQkiUonsUVdKuLhrRA0lS 0hBAtulhzhg9bscvzlCiv6 vo30rJJrs5O1gUS1M5Kzsw M5IIVjkBJv UkuclNDQmR4wkhdti5elop uiWgNfGIMhIIt6FAv9GZUh pPdaAcGsMG38SBP9MMHljq YuH9NdSZBt eQufKgG7n6J6Ff4WW2ODQs vvL4FRIWQZWPfrfPN+PC90 oy84C2FzRjnlKoy8LCLrWL A7gKR4wC6j CHDxVVxor1V9bJK2S5Wysm Mstb3xb2nxDLItXGffU43l hSBil7S2YCRofIL4GALxeR swFwOlqB37 Oyc+IXUvkKpqn8KhQypkg6 hmq0tgjSi3SdmzITLgqzWi cNluQAU7i9ZcKk6xWRXfjA D1kJQ1xI8j YlEwMlZ8LSdrU922ZzYqvS JuYicwW33bH0VhfCF+PHRy Dpg1QQTfdGpgMA1oG0QzGJ RpbmctbGVm tSqzAC2lVVFulkbgUAZltB 1rZBCtJ8b5ReKlHnN1RKux W0ZxOWTaojeoWl84yW4hWd PvZxM0UCxt H0ZyecT3UPHyxTRtKWcuAQ V5J31fl3A3OLUfXKGpHYW7 wRP6mT7qdRxwnhdbbEJdeX sgdmVydGlj RHhmCFxqR560SOWnjSfxBh NvZGluZyBEYXRlOiAgMDYv MTcvMjAyNDwvdGQ+PHRkIH V8jTygIOFo rKByBNisCt8gcNszwYktMF 3rZMNenrwqEDUoiF2tILXb vTQrjMqhJA8yGPMqikbyz0 14BeEhFTS9 ZTUakIBtI1VajU6kOlXdFO LgFHGpP3LbnBElZDgbA453 XSglBkA2EDZcxcBlI9XjFZ FsaWduOiB0 c2O3Fi7Kc0RujttnY1CaiA ToAsOpGytbTDs6U4NfMdhv dHI+XM16LJAeNI06FTc5HO T7sHccFYzq UXOtJ0BleS8jPzFtFCIvRN RkOyc+PHRhYmxlIHdpZHRo RXqhQJTeUuFhhDppIN9mJi 9yZGVyLWNv pWpxqWHnZfJod2ksBDYvBR koGG1jsMzoM3AvoVF0FXQx f3l1Vr93X80jA0WjtCN+PG VubYP5tAR7 zA5oJrEiRfU1REtkM611Us JosRLjPwilq0tpd5nxwJt4 MzP3XJFxmuQixWbjVAI9j8 EjLd34X55o IHdpZHRoPSIxNSUiIHZhbG iadp7lwO0nBa0+PGNvbCB3 jUN5eW1dCgSzTmA8VMonY9 49InRvcCIv Nuroj2dis9soqXk3TvLuRN BgmuRllIktFJY6c9JxXi45 U4OffJnmh7BvKuy3jq58cX Efz2N9yMX7 U5GxWZDyewlusGVwiDbmST 4eIRBscsrjBBYbdG0iSHSt D1n9IoLoJmT8MWevM3Npsn M9MIXglWXj ZBWyhXFOhY3mnukvw0vxbo lgIyDkQZNqWGc4ZDq9DFXw qKieDdXhJPA9JhK9IEZ9xA PraH6bnUlc uwbrrE9gXra+ACS3iELufU IMWT2fKbewfDO+PHRkIHN0 nZwgNNpgGJRcwY4tOUWhP1 k4ZuEfWwR3 HRppT6QlroQ5EVAjnQDyWC KsgDEGbI2ofzbac6gpyobw UvYvPEWhAHf1SKl0MNVrlZ duOiBsZWZ0 OlN7OKL5iLJknT7bmRmqcx uyeO9eRjh+QmlydGggRGF0 BPd5W3DeVnb7IHNflQmnWZ 0ncGFkZGlu Lo6scLojdNpiLN0qHCVthg djn011NkXxc2ubIULfaHMh RMqiPBS8C88vh5Y6ODPuZU VuOFQ8mMQ9 dU0juUrhrliwwEZdmShnnv FnwByvVEhnIGtgF797SRQs iOooHuNpZJv5W1TdOhm8TW TttLydMV0e bATsIDamOy1coVxitDwsUE 7oJIWdztqej579SoMqb4fe XGQxrPEeZVotKER1A12bt7 I4ALDiXRId NHB1bGQ0gI9ooPjaspzfnZ VmdDsgdmVydGljYWwtYWxp L929EMXomHdmWmYrxQd9Z9 WfLzr3IQWq jInlIE6vxRDsUZghXw1mwB wniOpbSG7rJMIcctkrm463 TfRec8ldPCFbtVAvHBrkLD Y1D24mw6J9 ZFAqMZZuAMV9gCY6qQ4doT lnbjogbGVmdDsgdmVydGlj HIxnGYouY858FHEodXjeKk BhdGllbnQg JBupYAl9O4CzMqdsaFB+PC 60IEHoZO67cWTqyINvx1iz sRd1ZtGfJZQkPWR9nGxqCS jcx1ZwOZDn G82vbEMck8C0EPOyqEzazI EfMmEanSH1eA3eXVzlbhjv w8vqxzdiMkcvt7dolh18iJ 75W54eEAdz ZHRoPSIzMCUiIHZhbGlnbj 8mrM5mBj3+XYOigDW4sUF5 jV8bNSPcWnN4YAlbV336Ou RvcCIvPjxj d2qog1vomSf9AyC4XVCrap UzqWnuIDG5c0WxIl48N46b IHdpZHRoPSIyMCUiIHZhbG qvan5gtQ5d Ii8+WEPmtRS8bTP4qX5nIb LsJeN0SFlsY905TyOiiRDg IqrdP16pX4EvuUU+PHRyPj l1NPOrpPxo OC6bxWQeCVocZu6iKUH4Bp BcUbXpNPjnY9CgYKJmskla gdjvpXZ9CUMvOPPfkG59Mv 9udDogMTBw oKKHhE8psujsc8vfouxvKo GgVPAiCKr7AIw6MWQvaLlu VdEuXAL5WeU8SZS5mHCzaY 1hbGlnbjog mY0yE7KhQJRrfcirPv41cU 7lXpIuFrR4XMlyOhu+Q1JB U8LAWfIaEFHPLPZKCsHaGE lDSEVMTEU8 R5WlIuj6GXAvfXumEM2fsD ZdZKsiUf5orJbzxIciNX1u NJDlkbnjEFLfhF0sPSErdJ HmuIlhIP8a KKOvkygha000TgAaSDQ2YZ YsuIKdD9ErxA0hKpEaIQLn JDUbO0YvhSLlUJhaV843ED ggThF7JHXh jkDxL3HfGLBmlUusEeA4i2 U5Wp4jBy4dTH8nBOb6NE84 VW39pLDrn4F8oIR4Y1CqQH Rpbmctcmln gOO5CGTnFQCkrC33kRXvAX vcAy5mn0N8v331CZWmZZMd uN66Jo4pgLgsCDYfhZXYiS 9pthzez7ha uaqzDvCdFOIyEWs3XSq6PG WiqFntYfIdQVN1OkN8ZBF3 iHAosI7arGjbgneejL0cFt c+MjUgWWVh mrK0A0AoTxy9CWOgnXywUK 4zzLGbGIcdZy4hpAhaxRmy KG3eHVEjwhnsOIWqiS2bDN JvdHRvbTog LA0kPDQtmxyoj789QzAsCH I3YFNcsBEbV3HkqF7nSzCf NJLnQADnG4QbsOZoCQfhS8 85MLmaTbV9 GFHshnDpU3FoXNHgyYkbJi N1h3J6Wk7WHX0UVGE5B3Lo Yhx2ZWWanBfqDQ1buZQlJG cdGb7urKnx uVnqTQ4xHZBhodxuDMDczE 5sMUEiqFAxqFyhTY3iLNMs xpwbd560XyScBVR6XHMltU YlG6BgsP4p LgNhVZJiHRCaB3KngVIbTA ioR275ORwrYuG1TAFhtzWe M0IbQKItqJraRyR1v2N2Ll 5PUDwvdGQ+ PX69ah85A6AtVtdkXip9KP ZzMAX1iGC7kC2nIRCqKAul j6G2dKD6C2JeoiJydm2vx3 xsYXBzZTog O73kvVCgu9L7EPKlsKR5MO SeoVbsHoRiaT36Vol+PGNv vXpzs8RdAvnso0gjz0vskJ o3ZsZmEWGb pmDlgMvpTOD6l6AcSh93J6 9sIHdpZHRoPSIzMCUiIHZh oViery8zoX0oUu0+PGNvbC N1qDG2fI6h DiEvQxM1RLllU521HqCzlL KcOpnxw4key5hjkNg0CwAz GOElevXirTzkTBP5x9KwXf 60L7DxgRxy p6NrRfr2ll36pSKzn5H1sD T8N6IeCKHhfuxdvRRtuStq ZF5kOJPnhffnHZNvdJ7cZL WwK4p1CyOq MsR1HMjcI2QdkzW6KVZzkM IzAYPzcAZJtN0epluio8lq uqsuWeMoERBeZDg8LNo8ZY FsaWduOiBs RWD9ZwX0VJY0pFPvaQ5juZ beavhssI0vRkp+HAz1i0du nQVjSR1xaVH7NI80DS07aN Hds9O2rDU3 L3SeCOAznoieytmzlWG3JB BhGKAstO95Ee4kwWnrZo4k BWHhCAD4AHTaiNReD8FndL 9yOiAjMDAw KYCpA7HquDJmJIjxI603BN lwBjN1BAKjueUxW1OtZSLb uXloBjS6t8K7Up6PAC71NO 05GR32hOPb s8E6jPP6L0LxYFKtpayrpq fweJC5CTRsKKUucL15Vz2n xZynAp2nSNGgFUW8DPTvuK UaT0MelS2a JvQfBMQcAHEjT6LndFLnNH tzQ012IBmvIgE7AKQpxfXg J6VqLWGimHjnMcI7p7I7Sn 4GZq71IF76 JS53xRErq2M2bMX8G3FoRC MvjifjvvdjlUV3TNRyJZBb oA38Si7xiQlsVt7dWPZsAA S5KMRljFEw Y9JnhY1hWzYsXBYrBCFfM2 NwrYDnRZiaX518EZkdCwV7 UBDzckBnW4AxEDTmmZmwMm N2c9Y7Uk9U CHwqxsg9X6MdRgeghTC+PC 68VVEtBW58sQXtqBShx2dp dSt6KaNvIWRrOHO6qYpoFI fhs9PtQSXf Y29 (more content not included)... [facility] Progesterone LCon 02-15-2024 Progesterone LC 18.8 ng/mL Invalid Interpretation [facility] Comment on above: Result Comment: Foll icular phase 0.1 - 0.9 Luteal phase 1.8 - 23.9 Ovulation phase 0.1 - 12.0 First trimester 11.0 - 44.3 Second trimester 25.4 - 83.3 Third trimester 58.7 - 214.0 Postmenopausal 0.0 - 0.1 Performed At: [facility] [id number] Sarah Beal PhD Ph:[id number] Performed By: #### [id number] #### [facility] (DEFAULT) [address] [place] [address] Provider Orderson 02-14-2024 Provider Orders [id number] 21 [id number]#1.[address] [facility] Coding Summaryon 01-19-2024 Coding Summary [facility] RianoynhNNu4bOn+PGhlYW Q+WP4CFLDoO20ziBYofA7t Y8UCJSwUNogjVNWDGCbCCi AkjwGqOW6maYBkADYq IC8+XD8gWLVbPthlzAUqg2 P6nVA6W06dfp1jFYogsFY5 KWYqGnXaykoii5plqYs1TQ cuNmluOyBt NPLfaV45AYC9hP00Mz28rV ByjXGat0ytlSc6BxUjATXl KNW5jIebRDnex1JxPTYgI1 7ovDAop1G9 EWFxgNjoxMShFwUahAP6vA 4lZEryhxkqp1uxusgiSda6 rp69gBTfe9K6lDZ1K6Gnlg F9LUNmlXRm IptioVYYmG6irnbwo1lmsc poBrFzBNXxNLe9BBm3IZEw gOnrAhGoPW17FQD2AUSsye HlH7UqIVNa pVkaZhB2k3E2Se2LJ3MUUh crW8QQSUDCXOrjvPD+PC90 md40F8EyHfsiPsq6HHKgKG H1iCW1nD9w DVLlOBwli0D7zEP1E0Inlx Fwke7ok0dwKOTkXDomE59q tTZzs5B0PDDjjVT9OFFtbG ucJyUpeP24 Oyc+JTCyuKmed6CrEehzz9 gns4csfFc7UjhtVJHpsmGg eNbwSAF2w4DmPb3dKXCpbM X0nEI7lQ9e StIkSbE7YLovW640NoNizJ HjMwugA77pI9TcrDF+PHRy Zbq1VPTsiLuzZG6kV1VcNB RpbmctbGVm aNmcGG1sEKOrrpexTBPdqI 1pQNNbX6a6CkEhBlK6XGmx Z4LzJGVlknsfEn87vP9sRu HaCdJ4NPjg M9FpsfB4PQAemSCsCWpgMS C2W76mg4J7CUWmEYMvHMA9 cMB5zZ6rsFqnbisetXYgkR sgdmVydGlj DXupUMtqX173HQDliGviDi NvZGluZyBEYXRlOiAgMDUv MTYvMjAyNDwvdGQ+PHRkIH O9pNqpVRNs iRGzVWiuTb6bzWvekPxnWK 6qXRPbzxopEGCmzG5eKXNi bHAsiEssSR4xKFPzxilal6 60QdApPHF5 RYKzsUFzD1EsuO8sVkBfTY AaJDPdZ5DdrKHhPVnwI892 IAieMrO6WUDjxnMlS5JhJL FsaWduOiB0 j5W6Af7Gf5JxriksD0IjvV HnTnAfMxtkFYw6S8WeBxef dHI+AC55UKDyWO66UBj6UC V1tVcpWPxf NCSfR3HxtM1qArKxSHGiDM RkOyc+PHRhYmxlIHdpZHRo ZQrwXKHpKeVwhRrpMS6sTz 9yZGVyLWNv oXaenRYbNwJjp3yfBMCqNE ccHF6xqVzrL2DcfKM8SXQc s6e0Xr41V94rW2ZdnYQ+PG JgrUD1jDD0 cG8uUqHzXsU3SWwxW584Bk UtbBTjSqntp4whz6gxvTt7 SmR6WKWuluKnzYvxTII0o3 NeMl44B55p IHdpZHRoPSIxNSUiIHZhbG yrty1eoD4qXb5+PGNvbCB3 iCP5aE5sTkOvOxO8EIabX3 49InRvcCIv Mhtjp6hdk0hqxGp9SnNsLP PbjjIzyQlpPYK0n9WvOc13 C1KpsHzeq2NtAgy0co37sA Okr8C2iIS1 M0VrQMEvnqefuLMckVvgKU 0zPMOuacwiQXZuyK2fSJNs U5n3XhJjUoY0HWnvB9Aqbb T8IFApwPKh GZOdtZBVrE2hiwdjh5vree ikLnNjPBWaCFk8GEv2TNTd jKunGbKaGAX9UxD6LGV5dT QxhO6cvMwq kxpsgD9tFmb+HDC8zEObhT QGRU8zSiumiGB+PHRkIHN0 hPtrSBrlUAHpzT9mZZAiD0 q3WtExXrP9 RMgyX6DifiT2WAHhcDSkSE YakKZPnP3fnrzmy8tnrxcl JwEiOEPdPWx0JIr4GCMqiC duOiBsZWZ0 LkA3FTT5dJFhuJ1dvAuhme ftsK1aMge+QmlydGggRGF0 KBo9R3EmIen6IIPflLrzQR 0ncGFkZGlu Oq1hoOltkSloQW2nAPZlzl zuq087NvQvq7igEHGpuSGr SCscAEU0S07ap7F1PZRzAX XkLWG3bTC8 mN5wuEuiorqetLHvdPnbkj KrrUcrISglZDcfO842QQIc vTclUbVgWKs5J1RhKeo0GW TcjHcfZQ6r wHQjRMwgJc2acSkikIixHK 7fYOXcuiuhx949EsGwy5mz WWDjwPChUPnoTTM8K42ou5 P0FXApPXPr JHB0bAQ3xK8foIzknkslxQ VmdDsgdmVydGljYWwtYWxp N597QKKbiWqsGtWooMb7S5 FkCoh0CHJt hWosKA9zzUUjCTojVl1afP cswRsxTE8oUNHbrunlm620 OpLqm2ciKFZxpQZvRPvxIF P8G82gk4B7 EBArQVTxTVI2rZT3aK6ikT lnbjogbGVmdDsgdmVydGlj MOlvWLiqS372WZQxiCvfYg BhdGllbnQg ABptBRq7V3DsQmdirLL+PC 32ZANwOI89aGWatCNkb9ur rTp8HnUtXLKrIFH3dMqkVG ucj1ZfFXLo C06rlQJtt5E8CSPmlKzixA PxIoYcaOW2dF8iBLpvlbjm d1vxoteoXtovm2afvh13uA 38Q57gAEax ZHRoPSIzMCUiIHZhbGlnbj 4lnY8lSa9+RNFmbHD2qNC0 iK1kFZMrNoI7RZnpS593Og RvcCIvPjxj s2pbu7cpfYc6PjT9VJCohx YyeIltMNB9j0FtJj99W37l IHdpZHRoPSIyMCUiIHZhbG idyc3elW0w Ii8+NHJkkHA6kXB1hQ0aBl BeDoQ0SHdsV861NyJieIIz OkzzZ73nU7AviTA+PHRyPj a3JXRwjLsg WT1cyNHwXUwyNi6sHCI7Jr LiXeJtFPlnX6BlZMYfjenn gbqbfLS5CNZuQDEpoA84Qs 9udDogMTBw uNLRtI0kmezzc6wfgjvgIz IpYTFyWFi4FLv5ULVvePoe SwSxUUZ4WuK6KMW6sDSseN 1hbGlnbjog oA7dK7SkDJIjxaidUt30qT 8lGdZbXaB5RFolCnt+Q1JB V5LHWuNnWBYCDLNGNtAwVN lDSEVMTEU8 W1VwEub4GXEjjVgfOH7ciY MiCLznZb0xgLopiAaySS7x COYoaikgDTHlkL8eJAJecZ IulVpmXB5a ZCJyrzvpw930SiAkCEN0XT PoiGZuB3MdiN5kWxOyBKSt VZUlI7HwtXYsYWwaE857LJ dnCuE4AYYy plXxP0TjUSBexFfbDrU5o0 T7Et5eUo0qKO9eHVo5HP80 NP91oDNsr7G7bDK0F9HhCL Rpbmctcmln eRH6YZSiOAOopK48dLGrIQ enBt9db3F3x907PKAgVRBt mD25Mp4mjKkdZOJhzRYNsI 1dmvygc6sp sxfjKgZqTUPuGUc4UUx2LV JxqNnaVqBnDVB2ImH5XMA3 pKHxpN5rqXkavbxdbG6mJd c+MjUgWWVh ieU1I3CdYjq6YGPmzOsnEF 4yfZXhDXlsFc0fcLtzuPya YX4xUWSithbeCJTeaY5lVI JvdHRvbTog SM4hJSEghasao820SaJgLR D2OGPhhNDaM3KekL5zSmKt IRSyFLGsS6AnsVOvDFyeK1 60ZXrvNvN2 KSOejdKgB5VgJPDkxAerEo O3h8D3Yn6LTK5JRDG5D9Am Biu1DUQfyZvpBV3avRMeJB ybZx7jbDnx iTgdLE6uASIzeggeMTHwnC 0pYXRhiRNjnZagMJ3uSAXh lzhmw098NcTcHGZ8TJDthS GqB5EhoW1j NhNoXIQjGBAqF2BxnFKoEE rrJ625IKfoSjK7BYFbwuHc E8AxWGApmHosKzX4r7G2Xm 5PUDwvdGQ+ UR16ie74V9TsZpihJaf7IW FzAMQ3hWP5qX2pIWVjPYmj t2D3bDD4W7GrspNesj8ui8 xsYXBzZTog E49xbQGbq3W0HKZvmNV6BT ZetEemStLnsH88Pzv+PGNv yZpvs1RaLbigr6rvr0oqgP b2ZmIeNADi onAjaWbmUQG0v5BjLs72M0 9sIHdpZHRoPSIzMCUiIHZh tHyybx6yyE1fFm4+PGNvbC C6tIN7hL9d XkGqQuY2KVgeL229TpNccV QmQibsq2cxj4qtxVw8HcEu RBPkvgNlbVenSMB6l3NqSu 79M3MnvWzc s7BeRru9vk41vZRrb1C8lD D3Y3JmUBJebyffgGKmdHbi IN0jVJYkaiwiFAFotI4qZI CjG2y5PiYy UkK6NBjjT7XeluG3ESMwsA VsENFmkSZUhW1pvdtky3zq jnmoGjZaASZlDXc6UXk0EW FsaWduOiBs RVG9XjI8OQB9tQQaeL8pyL pjbgkejQ7eQir+SGe6f3qx yKRkQO1ixHG9FO69NB65iG Jtd7T0hRT7 Z0LePKTofbwdrvhpgTN2KL JzGFOwnT96Cy1iiJgpUm1o KWXyCOW4SSXsqVJaW8PyiM 9yOiAjMDAw DVLmN2VmpERvTLtyM620SM yyGhY1VQXjzsVqS5OaJOOd zWyvGyE4t1L4Lv7MXD94DL 05DN21yXOi v3V2xIQ1O1PvZCGfwwwfvn bwlBQ1FJQrVFNmaM57Zf6g hCzmCb0hAGNfZZI1YAIdiS ItH7RmfO2i QuLeSYLsXGNwR0WntWXuZT lfV679FCftWnH5BTHjzvZi H2ZqVCHyzZsrZmB0t3H4Wr 2PPf74VI46 DD13hCArr5I6jOL8T3KrXJ EdnhakldjnhKG3SXEdOUSw qN13Qx3tlLkxEf4uOPFpCQ D2YCDjdRJn T4LzhE8oMbHcKWLmCBBtH8 ZtbCSgQTiaJ085SMprInM7 NZUkpkSaW3WdHNFswEryTa M3g6C6Mt6M AHtpfpz1B4AtXjckwJE+PC 16SCMlRU83kNNtuAXgg6ns mWp9WsGgUUAyQZT0wHfzID fvy5EsCZHa Y29 (more content not included)... [facility] Progesterone LCon 01-18-2024 Progesterone LC 14.5 ng/mL Invalid Interpretation Code [facility] Comment on above: Result Comment: Foll icular phase 0.1 - 0.9 Luteal phase 1.8 - 23.9 Ovulation phase 0.1 - 12.0 First trimester 11.0 - 44.3 Second trimester 25.4 - 83.3 Third trimester 58.7 - 214.0 Postmenopausal 0.0 - 0.1 Performed At: [facility]] [address] [place] [address] [id number] Sarah Beal PhD Ph:[phone] Performed By: #### 3 [id number] #### [facility] (DEFAULT) [address] [place] [address] Provider Orderson 01-17-2024 Provider Orders [id number] 02 [id number]#1. [id number] [facility] Coding Summaryon 12-21-2023 Coding Summary HTMLBase 64 NhznlhyjPHn0rMt+PGhlYW Q+YR4JPHFdH71vcSAadH3l X8SHVQjZAysoXPDKIGcKUm UxvmAmKB4jnLHcZOKy IC8+YN4fALWwBwsviXAvf8 X7bUO9B74xrm7sBMcpjIL5 URVhAxZlyhjtu0dotGg7TO cuNmluOyBt PJCxhC37KOC0eO03Qc92bL EurKDhn5varAt4GzBmJRJw YOC7qYplQRxvm8UzINMtN0 4cnOLwl7E8 XCXtsRabmGTlTqXpdHU4fQ 3aIMrpqisau9okjezeZns5 zr42vCBqi6Y2xPI6G5Kuql Z3LEPndIEz PixjwPRQhQ7lbgwel8czfs wnHuUbGOYoYLv4NXe0MDBf gRdzGeKcEP87DVU5UOYjso RxS1UiVVIw nYfnLzU7r8T1Xh5CP4MYJy noW3WZLRINSDvscPF+PC90 fd84Y1TaZgldFie8IBWjMO R1aZG4iE9q XYXrVFhow1M8oMN4I2Eahl Dbto3df4pvPKIaTLgqG85n sMFxv9W5OBMcbSI5IHRfwH roAmFwzA46 Oyc+KFLffTzyz0KoLover2 eay1ygiUd9EwwpAUHbrsTj hZbyNSB4z8LwWm0bPMYjmB E2aTO7uV7o FpZcZlA9JJdpB832VaMcxH UyZgltB84jN5UnsAX+PHRy Tcu6LWXmySzbCG5qE5JpCF RpbmctbGVm lMzyIU9dAHSxpbxdCSUiyB 8wOFMmK8g3YzAmXhO9WOvs R7KrMBKvxylrNm65qH9uSu XcVwU3EMln O1DfsoF7IRVcoJTfXJmqEQ T0G39fm9M0GKJrUKZrPTZ4 gTF3tD0wpKvnucuqzDRxoG sgdmVydGlj PAvdQSjqC360ARCurZtdTq NvZGluZyBEYXRlOiAgMDQv MTcvMjAyNDwvdGQ+PHRkIH J3xLebPRVr iSMlETwzHj2eqAvdaXnxTX 1sMEHfuxalKEXwqF6lWUNe vXMtxXwrFC5rHTXlktgnl5 67ZzSeWDH8 NNOnlWMkT0LqdQ4tBuBxOR HgOQNfK9TilYDuGNjiE698 IWzcPzV4YZIppyHzO0QmZM FsaWduOiB0 y5X1Eu5Uv5HdwwvqX3FmyS XdDbHfSnolKLt5P2WoBxmm dHI+UZ43YRGgXD83ENn5IE L8pSibHVzv FOTrV0RatD8kEuAyXDMkAK RkOyc+PHRhYmxlIHdpZHRo KRvzXLFiPuLegUdbCD9uHk 9yZGVyLWNv vDvxbSXnKpJev5qlJJZwHO ygRN2jmRegA7XwiBC3QVNr v8j8Gp37M20tO5KbcPE+PG RnwAT0bHL2 jF8aDaScCxR0PRasN358Bs IitLLzHmjvt7edv1fitRv5 OqJ3AVXvdxEetIkgAMJ4c0 CeGf16U13p IHdpZHRoPSIxNSUiIHZhbG xrac2ufA6cWz2+PGNvbCB3 fRU0xA6fHePkQoP9VPzkL4 49InRvcCIv Hgqtb1xwz5inrVa3GqNeZJ UikqMreFmgXFS9o5MxTy30 M7NzpDdkb8OtAnj8il99hX Nlz0U3qYZ4 M8VjGLYzawnmtCCsjGgyLQ 1qHCWiqtigJLQsxV3mZKKu G8r2SoEqYoK8HWidL3Cwip A5IAVwvZPe BVIzcLRPnK4hebkbq3tcwd zbOhIuEJZwWMy0BLt9ZCOe dBeaVcLjEUS3WpU5DQF7mA WzrQ3kkGwk axqsuQ0wGmf+EMI6yPPhdW JHKV4jIosoqSM+PHRkIHN0 zTanTZnvSEXleZ4oZEXkQ8 l6IvWxNiB8 NTzdG4FimzU1YDOisKVaYP DuhXLIcT0knwogj0odeqsn NxRqGKCsLMc5OSh5OBWwjB duOiBsZWZ0 YeG0JIE9aWIaqZ0bqQrerj wudJ9mGvk+QmlydGggRGF0 RFt8F2FjAhg5WGMvoMftAZ 0ncGFkZGlu Hv3qbEiwzQzrRZ2iGPGtck tnx485BwMgb5cbJSLquTHe GTorURF0U21ri5G9EVMxGP TdNXE8hQE5 dK9grGdxuhhqnTYnoGccwl GpwOhcSXhhBXkrE121PIQk rLznLsNlLPk4K0OiFzb2HQ CscQlmSW6d lPBwWCntXb3ntFdwlUvqKE 0bKKWbzjlvj235FwXac8ju MGOgjRQoTMplNPV7D46el1 K3ACLwSYYx DJW0xWA6wB8tvNzzbsdpkF VmdDsgdmVydGljYWwtYWxp T387LFQkvXlbSkTpiDy0N5 VnVol8PHSu cRmmGP6slIOoBLydJm5usB otvUmfYB2tNSXnmleuj750 XzRxq7ngZQIstCNpQQklZY R9T93xo8I1 DWFnTMWzPTV6zFG0rO8lqU lnbjogbGVmdDsgdmVydGlj ALtdAUbtM434DLFvfIiyIc BhdGllbnQg NCllHLg6E5DrMjvmqDJ+PC 20TLGtJQ70cLYfvAHaf7wb gBv1VgBmVGBcZEQ0sQynEH fgg3LnZSXx L64ahLZzd5K1GDMvpVtzvG RmJzShpEF8sW3cVOfilxgl z7nrjkhaFieth2zxqy33iB 88R93mVZit ZHRoPSIzMCUiIHZhbGlnbj 6viD4hVz3+ALIrgVJ3rEU5 rW9aHEKtEcY5LRtmJ015An RvcCIvPjxj t4rbs3skkZm3XgF7BDXtrf ProZpyEQO0h8SjVs45S44b IHdpZHRoPSIyMCUiIHZhbG bktz9thK2u Ii8+LWVyxGL0vUS6yJ6vGn FsCeY5PKfvK274WnWgpOVt RgqjX59wN4ZuxYQ+PHRyPj i3BVNkvPob QU0bqLAoFBqhGb3fJES4Sp AwJrOgQMjpV6KkLPVxaifg slkbyTH4TUOtVGCikQ57Fu 9udDogMTBw aDJVmC5yxgwdm1zbddfdYj OqBPOzCKt5LTn9SRKcaQub UvLfGSG5SpC9CNH1oNUmlS 1hbGlnbjog vS9gY7ZmMUCtlbueOs41pG 5oTuFpLnH1BHubBue+Q1JB G7BXSvVeOFKCOVVBUtMwUF lDSEVMTEU8 W3OuOtq4NAIkzSlxTB6jaH TnHUnvGc4ggYbuqDzdIZ9x BZIbbjoiJVOznB2cVXPwaT IotSwvSP9w APElqntov787XmJaKTK4HL AgxHHkW3MgkG3nLeSqBJTt JUClV0MklTKsCIdvQ113RJ vrUqP3KNPf nlUrK5SgDHNatRknFiO7w4 W4Cp4eUx4oKE4pSQb3YK71 HM06nJKnl9L1nNP4U9XfBP Rpbmctcmln nBD4TWUsMIGmmM24iPAdUZ udVy4nx5Y5n923ORUyVZVi xO32Wz7poGtfFMWguFYErV 3ibzhok3xq unyuFnGtTSDsVRj6ALp2RU QtxOqdOkArODF2PyG4ZGU3 kSAuiH0kpFznmnxaiU0yXt c+MjUgWWVh ydQ7C4RuUxs5FWVrkFmgCE 9toNYwHKlgEv5vnHxwsQcz IP5gORNgqvxaERDmmZ1mBS JvdHRvbTog RN6tRLQlkxgbf448CxYyNW O2PJXivNJgY4CaeN6fFrEv OPQjVJYmY8VfdPDpVOjsH9 48SHlnNsV3 DWHzyxGcF7CbSZCgmNmnWw O6b7I7Mt8XSH0GLVR5A3Ly Sjt6RKNcjCbrMC0pwIItHS vhCe7ifYlt iGojBB1bEFKdtilzWXBodR 7vCBVtrMEjnDqwMY2lXYQw oonzi962FpYoHTF5EBDxyS HtU2JbrP3k OxLaHKGeUPPxQ1HqcRDoWV kkX010SHgsGjW3AYJbxkWm E2NzVAHsgXcaVmG1z3L7Ue 5PUDwvdGQ+ IS03jo43V6OmTjdjPko1SB LkZZZ5mWK5bV5vFOMqPUwn y4I6dRT7S6EssiCrbb5en1 xsYXBzZTog T90fpKKjq5X9JJTiiAU6AX SvpPvxEzJcaA90Mso+PGNv fPtew4HcQlzwh8tsh0sikS n8IxNmHVGe qaCbfTlpRZS6b8UvUw29F0 9sIHdpZHRoPSIzMCUiIHZh rCrulu4iqN8rNo9+PGNvbC Y0eIM4nP9r IgDnUvD7JWvyE780YbZjeN PfDmstu6jdm4lvvMk0TzOp BHQejmSknQioOQF5c5WuPx 93X5GsfBll u8BmKcl6up15xWWjj9G3iY R8S9NsIEHaxwkapWBwzHyq EK8pENYkfhxfDDBgwO4eCY MhO5m4ApWd GvP0PAjpH9XpyuF4JMGuuR QmYPIsvXRPiC8zayhnz2lt tcafWxCqPCCcKKv5NVb8AR FsaWduOiBs FPB0FdN1MUW0eHVgxJ2fbY hgjojikE8eMdk+WRb4s2zx lQEaDE5okIE4LN60LL56eP Uow4P6sOX9 I0RtVVTsrqqkispctSY8BC RfNGMypK57Sf2weWheRz5i AETeNLW0OUXboUXcI1MgsX 9yOiAjMDAw FCPpB1AsoWOxBEydL255UC ruUpL1EWNldvDlZ4AsKVDg kUuaWlG8n0C5Lq5MDJ99NU 74GG82xUBq x0T2zUW6N2MgQOTljeljaz ylvGO0EOBaBUKwrJ38Ws0f dOerYj6nRLIbDFL6TAUpiU JiW2AubC6s VxKfFNEmYJHmT7SebDLfLO jhM861LCzpEaB5LORowfEw U4OmWVYonIfbWkT5y5O6Rr 4RJo59TR24 JX34iOSov4J2tTC0Q1WiRK UesifobdeorJS0SHZdCJQo sM93Kf6wuPpiSk1pHWGgXP W3AHQeyMOc H5GnqM0dCaEqOLSeJFSoG2 LauVBnWRtyV857VIbzXpT5 XPVxiqEjM9IfGTFomIxfIe V9g9U1Hq8M RCjyhvb9F9NnDxousCQ+PC 46WGWzWA74cPDwfVWnr7oc tEo4SpKyATJiBJF7cTezZX yqq5WcNLQe Y29 (more content not included)... Normal [facility] Progesterone LCon 12-17-2023 Progesterone LC 9.6 ng/mL Invalid Interpretation Code [facility] Comment on above: Result Comment: Foll icular phase 0.1 - 0.9 Luteal phase 1.8 - 23.9 Ovulation phase 0.1 - 12.0 First trimester 11.0 - 44.3 Second trimester 25.4 - 83.3 Third trimester 58.7 - 214.0 Postmenopausal 0.0 - 0.1 Performed At: [facility]3] [address], [place] [id number] Sarah Beal PhD Ph:[phone] Performed By: #### 3 [id number] #### [facility] (DEFAULT) [address] [place] [id number] Provider Orderson 12-16-2023 Provider Orders [id number] 05 [id number]#1.[address] [place] [address] Coding Summaryon 11-24-2023 Coding Summary HTMLBase 64 YuvhkttmBGb4uGn+PGhlYW Q+ZN5PZQDiA69myAZtxH6s O9JCRRnIOgnkSZUHRQtABm NbtmHzLB5ajKHoITKy IC8+QD1lRZHxGjkfrEUqk7 V4rML8B60wun7lCLcdkHV4 ZOUiXpRwfhpvx4uxkRn9HC cuNmluOyBt KTZvdP66DKF2lI06Jz02lY YvuOWhd7vwxLh3ZxYiQDHl WIA2vEqnUBasb7QcQECdE2 0usZKqc2Y1 RTAapWgquNTuWcUurVX8dE 6oBMogtorry1uquuruSqa8 qo44sZYgp3P9fJM1S0Yygv F8NFFonOGk FqostGPAaX5sbdshd2dpud kaOlGkCNIhHAo8MVn4RURd aPdjQfFsNF34YRX5UXNyhk MqK0QzAEIc hVgaTdY3t0G7Yu7TT0DDLy okG0FPGBRKLWsesES+PC90 ft82M4AdUpmkXuy8GCBuHN V7sHI6iS9f SZVsARtpj7X3fDU7Z5Ijrk Eqvw3vm8vnTRAoESnuV68y wGNvb3W7EGJxuLC7APRsoK gaYaFdaQ68 Oyc+MGAayFidw6HjGsjrr8 xer0bqpGh8IclaXSZtwiWy fPdwSOS5t5FxBn1lBKTphS M6yXS3mV7p KxKoPeG1XRuiW535UyClyF AbSzobF40pU2CeqNO+PHRy Umy9TGUiwWcvZO0vM4CaPA RpbmctbGVm bBpbIT8hLBQhmjkoSIJxkS 7rUWQyU3a5UkWuOpO0PSvh A0OsCDTgjwnuEg14yT8fQg AoVzP0JLcg H3SiwnH6CIRdjOFgIZtzXG U3C41nj7C1DXVtALUuNTR9 kFY9sU4zhEwsqjcpuIYfkN sgdmVydGlj JPhwNPjmR888XMUktUynGb NvZGluZyBEYXRlOiAgMDMv MjEvMjAyNDwvdGQ+PHRkIH T9oTmzGSWl gMHaSDrlFe6hxDwguMiyIP 7bFICbjgriURPmzR5uSDQp hSYekLfwGS9nJBYwrjvqn9 31MxXcYXY0 YQBonNXeS3AkxA0pZwQyAG ZwMKZpX5LmuUHtKBjxX318 WZseToL7WDLupfXrG5HjGH FsaWduOiB0 s8A5Eb0Iv2ZrohlqD5OkjL QhIsRaGkwzSVy8X5QqPagz dHI+DW99ESGwHS35ZTz8SL W5qItbRNfo CUIjL7RvoJ0jJuDoKNIcIR RkOyc+PHRhYmxlIHdpZHRo EXshPGWjZvMdaYurHQ5fTx 9yZGVyLWNv hUrctIMmBcVom5awPNXoIJ qpPJ2fhYpkG4BunAG4BNEo t7v6Ji58M17oM7FrrDD+PG QyfWM9bUY8 iJ5qMdArJrO2HPziF816Yt NubELfMhngt1owc9kdnCe8 TrV2VIAcfwGmuEtpOJY5s3 FsLm01M96o IHdpZHRoPSIxNSUiIHZhbG hgkg2xuL5lMi0+PGNvbCB3 oPH6yR7uPyYuAdA7IHbhV1 49InRvcCIv Elxcb7eyp7asxQc0UhPlKD SdjbUboYnmARQ6q6BuYn79 Y0SdxMvyf1DaZvg7jd89dC Iji6L4dZQ8 U5HzYCDvxmklmHOsnYjlXU 0hULLsihbsFRAkvF7mLUBm P2i6CqJbKhG2WJtxN0Kuev S1FMNucCHq GFLowHGOpH0ahkhnq2cvmz tzCaRtOGWnSTs7TSc9OMPs xMokYeTfUVW3KyK4WDJ4bG WitE3gtZnd ralomQ6bTyx+VFJ8dMLngV KWTO4pPaqqdXA+PHRkIHN0 qOwzEDghCYSgiE3wAZPgF7 n9CtGjYuB2 DHztG1XdnqK6JEFasNNzMH ZlzJBYhN0xbfmzo2swnyzg GyMqVIIfBCm5IQp4SWSbnZ duOiBsZWZ0 PuD7DTY1aQIqjO5zgYtteg zyaA9oVij+QmlydGggRGF0 ACf0G7XuBew1IHArlNjmIY 0ncGFkZGlu Ox9tcFzznYcrYA2xRAJvrh dwl955DgBrq2exTSHclUPa RTtgNTL4I42np1T1LLLvUK AwIZQ0qUV2 uD3ihFyqkdbqoBRgbVtosb DneJgsFDseNUhzB997LSVd oZuaOhXwMQs5G7UaVss9IX TjwAljUM0g bXEmARxzTi5vsEtwwHckVK 6lOPEbvjvua695KxGia2bb GUAclZZkFTuxZTN1T00gu2 J2UCSnEUUj WYO8tSD9jD6goTgkwhljnF VmdDsgdmVydGljYWwtYWxp W847BGDftWotZpBpzQk6Z2 IyChj5TXJu xYznVL3teJCwDNuzGj8adJ djaQqrTX9hLZQgvqesb255 IaDyb6axTFBdvWQnRNysLN U8N07gb5Y1 PRHbHEQrNAF8bNC5lE1kvU lnbjogbGVmdDsgdmVydGlj OZyxCHcaG990VHZnwOdcRg BhdGllbnQg ZJxkUAj7P5JwXsnraIY+PC 35XOSaBZ42wZHkzMVcc3oy fEl4CvUsSUFcAAU5lLutKB yqm4WdQQOw T78rqNLct7Y9JICynHpgoG WiRlAmvWA1rR9jJCwnkrpm l3wuwzmkVhiya7trne25oA 96W21zHWqo ZHRoPSIzMCUiIHZhbGlnbj 8mfH1lCb3+JELxcHY5wYN9 fV3xUIYdHkV4AUthM659Mo RvcCIvPjxj v8wli7gqhEk3ChN6BFEajw TvvAmdDPN3n8EfNt06M43l IHdpZHRoPSIyMCUiIHZhbG bjgn2yxB9q Ii8+MJRwzSC0yAP9kX9iUm JoQnH6HUwnK376ArDavTXi GryfE22fB7BkxGO+PHRyPj d8ZQDsiLlu GZ3bpTEnLOzaDj0xYJN6Jq FoFuRjNBzcO2AjTTUsmdwi gclfpDE3JMVnZAZmyY56Sr 9udDogMTBw sDJScW8ttcxhh5fbucxgUt GaDYEoZOi7MWy7GWVnjYju RtVgWME7WxP2JHG7aBIihF 1hbGlnbjog tO7lR9PfSOBohoqcTm91sC 5qTaSoGoD8GJuwXhe+Q1JB G4LQQtTwLWVARSQUIiPjGO lDSEVMTEU8 Y6ZqAse9QVPmlLivEA8ioH FoEWqbEg1qmOedhPspKN1w DTShkripTPOkgV0kHIIakH PiiIvfMS6l IUJjvzgya321KzFaGBM5HH RdkEMqK7FiaU0mSsAhARFx NWWgG0XxhXJoMJieZ100TR ydMjG5SSNq kpNaZ0FgJQXsmNpoZkT9y2 G8Ot1fUf1kDU8jQBf8XG74 RY75xSUhc8N2lHS8X7ImGR Rpbmctcmln aTR4NLZnJMHkeP04xRWdMV wpKt7fg2D0o595SRGnCWVt fQ03Yi6aiUehDWNulKVVfM 5gqveeu6fz dxyyLsBeSNQaKCm3LRp5FK LrgWauOuEwUGT2ZqN7FRM0 xEFpdC1waGejriadgE5xCx c+MjUgWWVh nmA8E5XtXkv6LCUlxUesZH 0ozNQbDEqoBx7vzHgmdFbe QJ9vCTXbemlnMBBgcF5rJT JvdHRvbTog VI5vPYPrbwqcc519XhVbFP O8LSUxfSWdV9GgpV9dKoPq MJRhFUEdS6TudEPgGYtrC0 02WGcvJbU1 ALNcmpQuO8ZvTHItuBaeCo D8h8K9Cb9YFJ4DEYM9N5Da Ipx8FBWdaYjfAG4guLNkOE icWt0jbSiw xMziGT5kDTZymalxYAVrcN 2nBRLcrZHoyYkrAM5jQYDx cmktm745XcAuWQT0CCZcgQ EbO2UarU8g FvYrTOYlMQSzF2ZycDPpZV sxF460COccLcH3VXOaaySe U2TdIFVxcIgvNbT0x9U5Fq 4FsCPhP1Bf A8y1Z5DvXbrcnFE+PC90YW AfIC70nEYbxDRkx4sekGi4 WzJeQQLdGKK6xFzmOIwuk5 MeIANbU82p hSRxg7F7MFEatGppgEGfBc MclUB3iI6aAQtjalmoa5lb ganxSajtc5cyoq06vA14Q4 9sIHdpZHRo ZOWuLVPnUVCubXgeav0oeO 9wIi8+REZekRL3yMK4bB3j CxTpUgI9FPakP908BzCbeH ZuZnouj6na j6stmZq4XwFjABOhevEfhQ kaIYU1h6LrSt91Q44hOThp ZHRoPSIyMCUiIHZhbGlnbj 2ajS0sLa5+ GF8at1xtez87cB20aFT+PH UlBHM7lZvrOZcgLRAmxC4e VMtkWoE1ZGBqMmAxhB29fG RdCZxdUg8i lRaidAptAF0fBMQyxsrov0 63ZcBhl6ypUSPygEWxJGat IPI7H54vg2J9MYTcNELnBA D4tWZ2iO4x bGlnbjogbGVmdDsgdmVydG tvFFlgHFesN800GCLdyYlm UyThyHKoC0mpzdIRKV6gDb wvdGQ+PHRk FBZ8hRktNIcsPVJzpJ2tGC UvZ6w6UyDfYfH9MXelD2Hc sqL4WONuqQCoBSSpbHCJnP 5chlmro9gt ijhtLeVlUUMiOKt3DXk6QJ YdqCmsHpTuNXT4GpV7YWR1 rPFcgR5ueSloeirwwJ7tGc c+RklOOjwv dGQ+GDOwJER2cRudWZagWM JpyP5qRQRdW8p0MhTyGhH5 QPhsX8ZiueQ4ARXcgJXwEJ VzwLLQeX2m ijhjv5pfaenwCtCuPVLiDK b7JEw8NBCfxMzkSsFjQPB5 XhS1AAL9yLPjwW8arSnqxz xdzI6eStu+ TVJOOjwvdGQ+ZZKoGNR6vD rpSAkkLONtvP5sSELuT2d8 JdCdGrC3STbuF6KpppD1WL JvbGQgMTBw bXCZvJ5erwkgr0sqaqwfFd BrTLCqXXx1TNa2MOYwaAdr BdViAVS4HlQ6KHY2cNHluD 1hbGlnbjog jP9qSng+YUE3KCU3RT73LM 75A1HdSkfpkNUimHL+PHRh YmxlIHdpZHRoPScxMDAlJy WqeNtmON5p Ym9 (more content not included)... Normal [facility] ED Clinical Summaryon 2023 ED Clinical Summary [facility] - Emergency Department [address] [place] [address] ED Clinical Summary PERSON INFORMATION Name: BONNIE ASTUDILLO Age: 23 Years Sex: FEMALE : 2000 MRN: Acct#: Visit Reason: Laceration of finger; LEFT INDEX FINGER CUT Arrival: 11/19/2023 09:14:04 Discharge: 11/19/2023 10:10:00 LOS: 000 00:56 Check In: 11/19/2023 09:14:04 Checkout:11/19/2023 10:10:00 Address: [address] [place] [id number] PCP: Anthony Gomez MD PROVIDER INFORMATION Provider Role Assigned Unassigned Daisy Freire RN ED Nurse 11/19/2023 09:19:39 Sreedhar Cheney MD ED Provider 11/19/2023 09:23:08 VITALS INFORMATION Vital Sign Triage Latest Temperature Tympanic Temperature Temporal Artery Pulse Rate 49 bpm 49 bpm O2 Sat 100 % 100 % Respiratory Rate 16 br/min 16 br/min Blood Pressure /80 mmHg /80 mmHg MEDICAL INFORMATION Medications Given: Medication Dose Route tetanus/diphth/pertuss (Tdap) adult/adol 0.5 mL Intramuscular Allergy Information: No Known Medication Allergies PHYSICIAN DOCUMENTATION Patient: BONNIE ASTUDILLO Age: 23 years Sex: FEMALE : 2000 Associated Diagnoses: Laceration of left index finger Author: Sreedhar Cheney MD Basic Information Time seen: Date & time 11/19/2023 09:51:00. History source: Patient. Additional information: Chief Complaint from Nursing Triage Note : Chief Complaint 11/19/2023 9:15 EDT Chief Complaint I cut my finger opening a box. . History of Present Illness 23-year-old female presented to ER for evaluation of injury to her left index finger. Patient reported that injury occurred prior to arrival. Patient indicated that she was using a box turner. She used a sharp knife, and accidentally slid along the inner side of her index finger. Reported having some initial bleeding. Some pain. Presented to ER for further evaluation. Did not recall the last time she had a tetanus vaccination. Believes it may have been more than 10 years ago. No other injury. No recent illness. Review of Systems Musculoskeletal symptoms: No Joint pain, Neurologic symptoms: No numbness, no tingling. Health Status Allergies: Allergic Reactions (Selected) No Known Medication Allergies. Medications: (Selected) Documented Medications Documented MetFORMIN (Eqv-Glucophage XR) 500 mg oral tablet, extended release: 500 mg = 1 tab(s), Oral, Daily, 0 Refill(s) escitalopram 10 mg oral tablet: 10 mg = 1 tab(s), Oral, Daily, 30 tab(s), 0 Refill(s). Past Medical/ Family/ Social History Medical history: Resolved Ankle fracture, left ([id number]): Resolved. Ankle impingement syndrome ([id number]): Resolved., Reviewed as documented in chart. Surgical history: Cholecystectomy ([id number])., Reviewed as documented in chart. Family history: Anxiety Father Sister Diabetes mellitus Grandparent Hypertension Father Grandparent Arthritis Grandparent Depression Father Sister Cancer Mother Cataract finding Grandparent ADHD - Attention deficit disorder with hyperactivity Sister Brother Bipolar 1 disorder Father Sister Anxiety Father Brother , Reviewed as documented in chart. Social history: Social & Psychosocial Habits Alcohol 09/30/2023 Alcohol Use: Current Frequency: 1-2 times per year Comment: Socially. Every couple of months. - 02/02/2023 11:53 - Ailin Martinez RN 11/19/2023 Alcohol Use: Current Comment: Denies - 11/19/2023 09:33 - Marisela Soto RN Employment/School 10/28/2021 Status: Employed Exercise 12/01/2021 Exercise type: Walking Comment: 1-2 times a month - 12/01/2021 10:44 - [employer] Henning Home/Environment 10/28/2021 Lives with: Roomate(s)/Friend(s), Significant other Home equipment: crutches Nutrition/Health 10/28/2021 Caffeine intake amount: 2 cups daily Sexual 12/01/2021 Sexually active: Yes Substance Use 09/30/2023 Substance use: Current Type: Marijuana Frequency: 1-2 times per month 11/19/2023 Substance use: Current Comment: Denies - 11/19/2023 09:33 - Charles ALLRED, Marisela Tobacco 09/01/2021 Smoking tobacco use: Former smoker, quit more 10/28/2021 Smoking tobacco use: 4 or less cigarettes(less 09/30/2023 Smoking tobacco use: Former tobacco user 11/19/2023 Smoking tobacco use: Former tobacco user Number used per day: Stopped smoking 2022 Electronic Cigarette/Vaping 10/28/2021 Electronic Cigarette Use: Former use, quit more denis Type: Nicotine infused Use per Day: 1-25 Inhales/day Comment: just started using yesterday to quit smoking cigarettes - 08/24/2019 12:13 - Demar ALLRED, Mayte 09/30/2023 Electronic Cigarette Use: Use, within last 90 days Type: Nicotine infused 11/19/2023 Electronic Cigarette Use: Use, within last 90 days Type: Nicotine infused Use per Day: 1-25 Inhales/day , Reviewed as documented in chart. Problem list: Active Problems (3) Depression None Polycystic ovaria (more content not included)... Normal [facility] ED Note - Physicianon 2023 ED Note - Physician Patient: BONNIE ASTUDILLO Age: 23 years Sex: FEMALE : 2000 Associated Diagnoses: Laceration of left index finger Author: Sreedhar Cheney MD Basic Information Time seen: Date & time 11/19/2023 09:51:00. History source: Patient. Additional information: Chief Complaint from Nursing Triage Note : Chief Complaint 11/19/2023 9:15 EDT Chief Complaint I cut my finger opening a box. . History of Present Illness 23-year-old female presented to ER for evaluation of injury to her left index finger. Patient reported that injury occurred prior to arrival. Patient indicated that she was using a box turner. She used a sharp knife, and accidentally slid along the inner side of her index finger. Reported having some initial bleeding. Some pain. Presented to ER for further evaluation. Did not recall the last time she had a tetanus vaccination. Believes it may have been more than 10 years ago. No other injury. No recent illness. Review of Systems Musculoskeletal symptoms: No Joint pain, Neurologic symptoms: No numbness, no tingling. Health Status Allergies: Allergic Reactions (Selected) No Known Medication Allergies. Medications: (Selected) Documented Medications Documented MetFORMIN (Eqv-Glucophage XR) 500 mg oral tablet, extended release: 500 mg = 1 tab(s), Oral, Daily, 0 Refill(s) escitalopram 10 mg oral tablet: 10 mg = 1 tab(s), Oral, Daily, 30 tab(s), 0 Refill(s). Past Medical/ Family/ Social History Medical history: Resolved Ankle fracture, left ([id number]): Resolved. Ankle impingement syndrome ([id number]): Resolved., Reviewed as documented in chart. Surgical history: Cholecystectomy ([id number])., Reviewed as documented in chart. Family history: Anxiety Father Sister Diabetes mellitus Grandparent Hypertension Father Grandparent Arthritis Grandparent Depression Father Sister Cancer Mother Cataract finding Grandparent ADHD - Attention deficit disorder with hyperactivity Sister Brother Bipolar 1 disorder Father Sister Anxiety Father Brother , Reviewed as documented in chart. Social history: Social & Psychosocial Habits Alcohol 09/30/2023 Alcohol Use: Current Frequency: 1-2 times per year Comment: Socially. Every couple of months. - 02/02/2023 11:53 - Ailin Martinez RN 11/19/2023 Alcohol Use: Current Comment: Denies - 11/19/2023 09:33 - Marisela Soto RN Employment/School 10/28/2021 Status: Employed Exercise 12/01/2021 Exercise type: Walking Comment: 1-2 times a month - 12/01/2021 10:44 - [employer]ning Home/Environment 10/28/2021 Lives with: Roomate(s)/Friend(s), Significant other Home equipment: [employer] Nutrition/Health 10/28/2021 Caffeine intake amount: 2 cups daily Sexual 12/01/2021 Sexually active: Yes Substance Use 09/30/2023 Substance use: Current Type: Marijuana Frequency: 1-2 times per month 11/19/2023 Substance use: Current Comment: Denies - 11/19/2023 09:33 - Charles RN, Marisela Tobacco 09/01/2021 Smoking tobacco use: Former smoker, quit more 10/28/2021 Smoking tobacco use: 4 or less cigarettes(less 09/30/2023 Smoking tobacco use: Former tobacco user 11/19/2023 Smoking tobacco use: Former tobacco user Number used per day: Stopped smoking 2022 Electronic Cigarette/Vaping 10/28/2021 Electronic Cigarette Use: Former use, quit more denis Type: Nicotine infused Use per Day: 1-25 Inhales/day Comment: just started using yesterday to quit smoking cigarettes - 08/24/2019 12:13 - Demar ALLRED, Mayte 09/30/2023 Electronic Cigarette Use: Use, within last 90 days Type: Nicotine infused 11/19/2023 Electronic Cigarette Use: Use, within last 90 days Type: Nicotine infused Use per Day: 1-25 Inhales/day , Reviewed as documented in chart. Problem list: Active Problems (3) Depression None Polycystic ovarian syndrome , per nurse's notes. Physical Examination Vital Signs Vital Signs 11/19/2023 9:15 EDT Temperature Oral 36.5 DegC Peripheral Pulse Rate 49 bpm LOW Respiratory Rate 16 br/min Systolic Blood Pressure 132 mmHg Diastolic Blood Pressure 80 mmHg SpO2 100 % Oxygen Therapy Room air . Measurements 11/19/2023 9:15 EDT Height/Length Estimated 167.64 cm Weight Estimated 108.86 kg Body Mass Index Estimated 38.74 kg/m2 . General: Alert, no acute distress. Skin: Warm, dry. Eye: Normal conjunctiva. Cardiovascular: No edema, Capillary refill: Within normal limits. Respiratory: Respirations are non-labored. Musculoskeletal: On the patient's left index finger, there is a laceration, starting superficially on the medial aspect, mid phalanx distally, traversing both the DIP and PIP joint, ending at the mid aspect of the proximal phalanx. The deepest aspect being in the middle phalanx. For the most part, well-approximated. No active bleeding. Range of motion normal. The midportion penetration, slightly past the dermis.. Neurological: Alert and orient (more content not included)... Normal [facility] ED Note-Nursingon 11-19-2023 ED Note-Nursing Pt ambulatory back t o ED rm 6. Pt C/O Left index finger laceration. Pt states she was trying to open a box and cut the finger with a box turner. The wound on the index finger is a straight line of 4cm with a width of 0.2cm. States last tetanus was more than 5 years ago. Pt is A/Ox4. Normal [facility] ED Patient Summaryon 024 ED Patient Summary [facility] - Emergency Department [address] [place], [place] [id number] PATIENT DISCHARGE INSTRUCTIONS Patient Information Name: BONNIE ASTUDILLO Age: 23 Years Date of : 2000 Reason For Visit: Laceration of finger; LEFT INDEX FINGER CUT Arrival Time: 11/19/2023 09:14:04 Primary Care Physician: Anthony Gomez MD Attending Physician: Sreedhar Cheney MD Comment: Visit Diagnosis: Diagnoses This Visit Laceration of finger ([id number]) Laceration of left index finger (S61.211A) The Pharmacy at [facility] is open Tuesday through Tuesday from 9A to 6P and Tuesday and Tuesday from 9A to 5P Prescription Information: If you have been given a prescription for narcotics, seek immediate medical attention if you have any difficulty breathing or any sudden status changes such as confusion and sleepiness. If you or anyone you know is experiencing suicidal thoughts, mental health, alcohol and/or drug addiction problems; contact the Mental Health [facility] Recovery Board [facility] 28/03 Crisis Hotline -Text 4HVTO pd 345418. If you received any narcotics, sedation, or any other medication that causes drowsiness for the next 24 hours, unless otherwise directed: ? Do not drive a car. ? Do not operate machinery such as power tools, lawn mowers, drills, sewing machines, or stoves ? Avoid alcoholic beverages and drugs for allergies, nerves, or sleep ? Do not make important personal or business decisions or sign any legal documents With: Address: When: Anthony Gomez [address] [place], [place] [id number] Business (1) Within 5 to 7 days Comments: Reviewed discharge care instruction. Continue with therapy as outlined by Dr. Cheney. Keep area clean and dry. May remove dressing after 5 to 7 days. Change external dressing as needed. Avoid for bending of injured finger Contact your family doctor or PCP within the recommended time. Return to ER for any worsening symptoms especially any symptom that concerns you. Medication Information: The exam and treatment you received today in the [facility] Emergency Department were for an urgent problem and are not intended as complete care. It is important for you to follow up with a doctor, nurse practitioner, or physician?s life enrichment assistant for ongoing care. If your symptoms become worse or you do not improve as expected and you are unable to reach your usual health care provider, you should return to the Emergency Department, we are available 24 hours a day. For those patients who have received Radiology results, the interpretation of your X-ray as given to you by our Emergency Department physician is only a preliminary report. The Radiologist will review your films and if there is a change in the diagnosis you will be notified by phone. Please make sure you have provided a working phone number so we can reach you if necessary. In the event that you had a lab culture while you were a patient in the Emergency Department, you will be notified by phone if there is a need to change your antibiotic. Please make sure you have provided a working phone number so we can reach you if necessary. [facility] Emergency Department has provided you with a complete list of medications post discharge. Please inform your slope hoist operator/provider of your visit and for further instruction on these medications. Any specific questions regarding your chronic medications and dosages should be discussed with your primary care physician(s) and/or pharmacist. Medications to Continue That Have Not Changed Other Medications escitalopram (escitalopram 10 mg oral tablet) 1 tab(s) Oral (given by mouth) every day. metFORMIN (MetFORMIN (Eqv-Glucophage XR) 500 mg oral tablet, extended release) 1 tab(s) Oral (given by mouth) every day. Visit Information Allergies: Substance Reaction Symptoms Type Comments No Known Medication Allergies Drug Vital Signs: Vitals and Measurements this Visit (last charted value for your 11/19/2023 visit) Vital Signs This Visit Temperature Oral: 36.5 DegC Peripheral Pulse Rate: 49 bpm Respiratory Rate: 16 br/min Systolic Blood Pressure: 132 mmHg Diastolic Blood Pressure: 80 mmHg SpO2: 100 % Oxygen Therapy: Room air Measurements This Visit Height/Length Estimated: 167.64 cm Weight Estimated: 108.86 kg Body Mass Index Estimated: 38.74 kg/m2 Problems List: Problem Onset Comments Depression None Polycystic ovarian syndrome Patient Education Sterile Tape Wound Care Some cuts and wounds can be closed using sterile tape, also called skin adhesive strips. You can use skin adhesive strips for shallow (superficial) and simple cuts, wounds, skin tears (lacerations), and some surgical incisions. These strips are used in place of stitches (sutures), or along with sutures, to hold the edges of your wound together and to promote better healing. Unl (more content not included)... [facility] Coding Summaryon 11-02-2023 Coding Summary HTMLBase 64 ZuncftthARp7aNx+PGhlYW Q+WJ7MPAQmC72fbJFcnQ7q G1ISYQkNNborSCWZHGtLRg CzkyZzQV7ltXTuYRPv IC8+YX3uOXYpNmnxkXVtd3 A4uHM8K85tak6xCJvocCX2 DJBrBgYdxdvtf0kssDt7YJ cuNmluOyBt UZWvyP25XDX1zH45Fe88dK XqeUWkz3wbdIx8PrUlIVUu QKO8qKunUHngl8YzMZIcT4 0ywZHzw6J6 HIAaqEnqgEGnRkWzgTU1aL 8fDHavjuwct1lxvavlBoc0 tq03tLXsj6A0mQE4T6Nljv X6SHZoeJFp CtblsGCGgE5vfkida7tfnv wmTfOkFYYfQLr6HPh3NFKn aIqlAgSrNA60XFF4OHJfos YmY2OhZTJh qPlmShP8r8X4Xo7SV2VQGj vzF8KRJXVDWFpgaTD+PC90 sh78R1ZqGqloOky3NMCxZG Z3sEL2lG1q ECDrIJvjy6N5dZQ1V7Lcwf Ridj1jq0dzDYJoVLrpB00f oTGug0N7WHDzaYW7DQEfhU joCrNxkH81 Oyc+FCOviOilv5FoTqcbb5 wmm9atrLg2MgumYJTfdxQq oQnjELE2h9XkSw2qWBAmjF Y4bLN6gN0l JjPdBnJ6EHapT098QpWheA QgZcayN04vD3SatFR+PHRy Hkt6SXSwgYomXW7tZ8LzCD RpbmctbGVm eJazWY2hPTKlxsrfCAHbzY 5rJWZaM5m0NhTsTfE8GClk V2PsRYLmfinyGr61bK8eEl McYcP8ARkc Q6RojcM0UXZooKIbJAmnPP C4N52wo7J4ZZMxDUUwJTR6 zAZ7eC7bnZxtwyjxiKFiqR sgdmVydGlj BYlmWEyjH518BGKdcRqaSm NvZGluZyBEYXRlOiAgMDIv MjgvMjAyNDwvdGQ+PHRkIH L5wUevWCLi oRFzFCdsOt6qtHaouAudQI 6uCPSddiwoDPAshV3bUORg tDJssDtgOX8nEQWtsyxhs6 94MfPvNZJ4 UALlrWTpQ5YfcF3nUmGbXZ TpYUKqD8ZtxTOlEIubM047 RIvuQrP5TSAwhfHwT5FoNM FsaWduOiB0 q0K3Vc6Hu3HufpzwK2UprU LlKrWsOczdILj1H9QsWcuk dHI+UM19FNQnKC29CYk0FQ G0cExhXPip KYLtB3QkbW7iMhLmIBZvBI RkOyc+PHRhYmxlIHdpZHRo ZTljQNDeFnGotQwqEO7oSw 9yZGVyLWNv pNpmrOKmEcQms0gcJRNwPK zaRR4etAzwQ7FarNY3KUAt o8x8Vc31O87lK3CrpGR+PG EcaGK7hHJ2 pM8iMyRvXoK5TEemQ985Sx BeuLItReryu5ndu4jvaVm9 YrQ3LOAgziKcrBmtQUC1i1 GbIl83Z55x IHdpZHRoPSIxNSUiIHZhbG zfbu8yfL4pAw2+PGNvbCB3 gTH3kL8rVcTeHwC1JUopA3 49InRvcCIv Beabn7olr9ndzBs3SoVrHS CjvaOydYgmJJL2w5VhJq57 V9UooHdby0ZnVdi4my71nF Alt8T3qRW2 C5ZbJYJcidyvsTCspUpiEC 0gPVSydxllSMFpxP4uTNVt Z6j6PaKlYdJ4UKpdG7Zcyo K8IZHcrZIc QNWjvMZIgP6ychnaa8mpjj smVfEzTEOdRMz9PLl3PHGo hLycXjQiCWV9RpA0RQJ9fH DmhH8tcAmj tgmquF2hZzc+EIB8zGEfuV EFMY5kOmtrpVA+PHRkIHN0 xXwcXHusPXLcnN8mQEDbQ8 i9BtDqVeQ7 GRscW6XnptM0XJPcxCCsKX AbbRHWgI1eqvexp3rlnndq TiPlYFMlZQq6EEl1CBWwwX duOiBsZWZ0 LuN7ZWV6kARuhP7ftZutkl ilbG7cPkr+QmlydGggRGF0 ZBi6E8PyWbj9RZVzdJzuUQ 0ncGFkZGlu Uo8cgEbybJtrFO7hLEUhys sby890LzUfs4dzEKUpdWYf PHzwDEC3S49qn3N6AJAnKQ QnFUU4rLQ0 wE6eaEqobhvmyOUeuSgmmj BnrRujIOtvIDgiT270RVVc yOtkAoZuRXh1M6EyUme6GQ NjsPyiBF9t fTYbNElfJx4dyCqzlMydQL 8iDLOsjhgxr261JyPdq2ye FRLgaOKqYPwzNPO6I19am7 K1LVHyQZAa WUN8xND7tB1syNedrrcyyO VmdDsgdmVydGljYWwtYWxp J516NJBvpVanLzQqpXp8V5 GuOps8UNTe mHwfWO9laHCoFYeqBe5cvE gtoVeaCS8hQGEjwjcre605 PtNea1mlCYFolCUwFJtlPJ C3B31ky0S8 STBcAXFmYWN1nAC1gI0myC lnbjogbGVmdDsgdmVydGlj WXxiUKuiT321FYYvlQspAd BhdGllbnQg UIzlTJs1G4ShMflckUE+PC 94REAxJG10vOFksHNgv9jq qSi1AeCwWGGnMKI3tQpxVJ yiv7LdEOCm Q28pdQVes6V5SPQumKplhR HiVwOtpSE3vV9kEAbnnyuo h0myfxpxJngua0stqr12eQ 79F32vVXpz ZHRoPSIzMCUiIHZhbGlnbj 1hcD2kFf2+MYDnjHR7nJD0 eU5oRXWvOyR8BOfvG206Tq RvcCIvPjxj w0yra1freBo2LmF0NOFbrd CzoQmvORI7i1QvMn65J51w IHdpZHRoPSIyMCUiIHZhbG vykn3lmM9p Ii8+LLUapZM4jSR1pA0pMe NjIgF3YVsyU743PbMmkIKe ZmyyL51qX7QccBZ+PHRyPj u2WTNydHfm IK7qdHYcEYmsHp9sUAG6Dn BzAhHuRRbdV6SwDOTvvgzt cgmcwBZ5NNEaQGDrlG64Jn 9udDogMTBw rARTnQ2gmkqiz9rfkzrtWc GsRVAbXYy5LFw9GKHujFku AoXdUUI7JpZ8EMC6aDSxuO 1hbGlnbjog mX1yW6FmUMFluwgxDs32yV 1ePpJyDnO9AWreDmd+Q1JB E2MWEjWsEVRZUEOWKzBrOI lDSEVMTEU8 M9BwKcj8WNShaGdxKL5zxD NxHWrvOp0giXwdtHwsLE3v ZJWltzohGSTdpF5bXGFlfL YchIezAZ7t KJNvdemxq758HhHlXTW5OW UtyNVoO7HatV7iKoAtGRBs QYSqT9VajUFvXIgzG758ZR mgEeN0VCJt ewPnW7VnUETceTaaQpL4s3 W8Jm5bQw8wKF5dHRr3NV09 XK23mWMog7I0jLI3A2ZeDD Rpbmctcmln rEH9ADVqGCHwqQ70kUPmWU dgJe2in4Z4n913EWTgASGx uH96Zw2lbVmtIXDqdDBYuB 1hcqflm1jo usdnAeJvCIUuFBm8FTo7JL LbnHsgLpGvVLP4ZiN0MVV6 aZCfnT9upXurvtnusO0eQv c+MjUgWWVh grU3Q0JoNzs7JANwuChnXD 3ijCVwFUxyEc5cfLdlqSsc VO6kQUOdmmepTJJjxM6vUP JvdHRvbTog YB0tJGGmglhvw705ElQfMS F0XCWinSYqU6SemZ7wGxFx ENIbQQRrT8JasJKuMIyaN8 53PPujWqE8 YNWicnAhV8KkHTEnhHnhBv C8m9V3Sd7HKT3EQHN2H8Cv Srq9CLUfiXwuKK3nuKShET ibSf8sfRwd dGjkDT4tFVXaiedgNWJzbI 9lHKFnoNGczIckCX9tVDTr yokou045NzIbPQX7QSPwmS EjV5WxrF5k ZaOoGHJdUZFnD3XmcUZzZZ ebR183YFmjIwP6RYEsdoKc S8OjNCZavMgkLuJ5q3W3Bn 5PUDwvdGQ+ QP27og70U7NrNrjeQfc1SL VqVSZ9uEB0wX6fSDYoOLij m1J0qLV1T2HdtrEdtv9gw4 xsYXBzZTog M02oqZAes5Q3BRDgdXM9XM WfeZbbVnRmyL61Loe+PGNv yXkct0SkVmcbd7pmh5cmzJ a0SoKsLHOk llXlxCkaMKN4i5ThZb11W7 9sIHdpZHRoPSIzMCUiIHZh uBpkix5tvW2gNd7+PGNvbC E3qWE0lR8x AnJeUlY6HJadO074KlQkhL InTqcxv9fvs4ljsQf4GpLp FCYkmfMbzYmkHDM4j0IdLy 06G2GxxAyj e7SkVbs7dj27kZWub9T1fF E6L6SdUOWpijyoyJAbeBoi HE6sZMJxadycUUKgzD8yKM VeT2g6ClMp YyY3SUsvG1IxwiQ5EUXvyZ SkDOOqjSRIyV3czmdou9xd ekkcRnQuQGIgHDl5HWz7OT FsaWduOiBs PYK0BmD7CCY6nAMffR3nsG uhcgdasZ5kEqe+LMn4l2jo hDMbHR8fzCW1CP24BT36nI Syi9X9eVX5 M9OcBOHagpbahsnceVW6AM YoSNXniN21Rc3ziUahIh4n EDTzXIY5KZMcrNJuK5TevA 9yOiAjMDAw JATnC8AqxKIgCSqvE280QQ hyKpM9MYAbmcNjE1JpJEOk mCzdYmT2z2T9Pa2XGM42LJ 78VA04eATj j4I3qOO1E4MtVJSatguxul aefQX3TUVkHSVoxH23Sv8m fJsnDb3oXFNeXKG2MSLacO AkX1JwoG5w MrJrWQUcCPKgO8XunWDoHL coU115EWkpUoC7BPAgszPe M1NuPLLqyNleMlA9f8Q9Ei 8YMd42VP99 XZ05iVRsj7M5mCY8V1GzWV UwmbbffqknuFL7YTGcUONl pI48Hw8eyOvjMx9iLJAgLU K3TIQkaYCc V0KfeE6gCbTnCHIiZZVyW6 TkqEZpTVgiV938YPlbCwN0 XAWvqbPcP6GxEVBixHumYt V0m5I8Tm6S GAnwcro0D8SwBipxvZA+PC 04ZFGwVW18fTEywOPpr1pf bEx3AdZpFNVlEMK9mIskKG nlf4NvWJBq Y29 (more content not included)... Normal [facility] Dehydroepiandrosterone (DHEA ) LCon 11-02-2023 Dehydroepiandrosterone (DHEA) LC 456 ng/dL Invalid Interpretation Code 31-701 [facility] Comment on above: Result Comment: This test was developed and its performance characteristics determined by [facility]. It has not been cleared or approved by the Food and Drug Administration. Performed At: [address] [id number] Gustavo Donis MD Ph:[phone] Performed By: #### 6 [id number], [id number], [id number], 8979085, 06600083, 69696551, 0843193, 2280092, 57847453 ####[facility] (DEFAULT)[address] [place] [address] Miscellaneous Testing LCon 0 11-01-2023 Misc. Test Result LC COMMENT Invalid Interpretation Code [facility] Comment on above: Result Comment: Test Ordered: [id number] Anti-Mullerian Hormone (AMH) Anti-Mullerian Hormone (AMH) 5.22 ng/mL ES For assays employing antibodies, the possibility exists for interference by heterophile antibodies in the samples.1 1.Aubree Norton Interferences in Immunoassays - still a threat. Clin. Chem. 2000; 46: 5597-2480. This test was developed and its performance characteristics determined by [employer]. It has not been cleared or approved by the Food and Drug Administration. Reference Range: Females 20 - 25y: 1.23 - 11.51 Median 4.70 AMH concentrations of >= 1.06 ng/mL is correlated with a better response to ovarian stimulation, produced more retrievable oocytes and higher odds of live according to Kelli et al. Fertility and Sterility. 2010: 94:5096-8852. The current AMH test method correlates with the study method with a slope of 0.94. Females at risk of ovarian hyperstimulation syndrome or polycystic ovarian syndrome (PCOS) may exhibit elevated serum AMH concentrations. AMH levels from PCOS patients may be 2 to 5 fold higher than age-appropriate reference interval values. Granulosa cell tumors of the ovary may secrete AMH along with other tumor markers. Elevated AMH is not specific for malignancy, and the assay should not be used exclusively to diagnose or exclude an AMH-secreting ovarian tumor. Performed At: [facility] [address] [id number] Sarah Beal PhD Ph:[phone] Performed At: [facility] [address] [place] [id number] aWgner Forte MD Ph:[phone] Performed By: #### 1 [id number] ####[facility] (DEFAULT)[address] [place] [address] Dehydroepiandrosterone Sulfa te LCon 10-29-2023 DHEA-Sulfate LC 252.0 ug/dL Invalid Interpretation Code 84.8-378.0 [facility] Comment on above: Result Comment: Perf ormed At: [facility] [address] [place], [place] [id number] Sarah Beal PhD Ph:[phone] Performed By: #### 6 084624, 14304136, [id number], 3034861, 78154307, 72452085, 5675558, 4739285, 34041919 ####[facility] (DEFAULT)[address] [place] [address] FSH and LH LCon 10-29-2023 FSH LC 5.9 mIU/mL Invalid Interpretation Code [facility] Comment on above: Result Comment: Adul t Female Range Follicular phase 3.5 - 12.5 Ovulation phase 4.7 - 21.5 Luteal phase 1.7 - 7.7 Postmenopausal 25.8 - 134.8 Performed At: [facility] [address], [place] [id number] Sarah Beal PhD Ph:[phone] Performed By: #### 6 341642, 32726635, [id number], 5028092, 67449844, 64241015, 4282670, 0312132, 63817942 ####[facility] (DEFAULT)[address] [place] [address]56 LH LC 5.5 mIU/mL Invalid Interpretation Code [facility] Comment on above: Result Comment: Adul t Female Range Follicular phase 2.4 - 12.6 Ovulation phase 14.0 - 95.6 Luteal phase 1.0 - 11.4 Postmenopausal 7.7 - 58.5 Performed By: #### 6 539652, 64343140, [id number], 3991968, 50742880, 25828510, 6657402, 9746510, 21945327 ####[facility] (DEFAULT)[address] [place] [address] .Auto Diff 1on 10-28-2023 Auto [place] % 6 % Normal - [facility] Comment on above: Performed By: #### 6 266351, 24298359, 8382819449, 4000963, 94290999, 21416344, 2549337, 7116271, 19218634 ####[facility] (DEFAULT)[address] [place] [address]23 Baso Abs# 0.1 x10 Normal 0.0-0.2 [facility] Comment on above: Performed By: #### 6 624481, 63451320, 3051294320, 1049583, 03089629, 40434583, 4446266, 6969021, 59093814 ####[facility] (DEFAULT)[address] [place] [address]48 Basophils/100 WBC (Bld) 0.8 % Normal 0.2-2.0 [facility] Comment on above: Performed By: #### 6 841929, 00522220, 9963251689, 1320660, 01957317, 79494474, 8287392, 3209858, 32951226 ####[facility] (DEFAULT)[address] [place] [address] 35085 Eos Abs# 0.3 x10 Normal 0.0-0.4 [facility] Comment on above: Performed By: #### 6 422882, 06898500, 5476543154, 6044708, 67280201, 50119363, 1233837, 8604424, 95738881 ####[facility] (DEFAULT)[address] [place] [address] 01700 Eosinophils/100 WBC (Bld) 3.9 % Normal 0.9-4.0 [facility] Comment on above: Performed By: #### 6 239277, 82879009, 7881780951, 3781486, 63416187, 41543202, 2319454, 4309199, 40238951 ####[facility] (DEFAULT)[address] [place] [address] 14646 Lymph Abs# 3.2 x10 High 1.3-2.9 [facility] Comment on above: Performed By: #### 6 022610, 84081569, 3278983499, 9473163, 36801640, 91072103, 1209785, 5691834, 14215002 ####[facility] (DEFAULT)[address] [place] [address] 13833 Lymphocytes/100 WBC (Bld) 42 % Normal 14-48 [facility] Comment on above: Performed By: #### 6 242249, 73232604, 1007190975, 6209874, 02215050, 82759052, 5772824, 6079463, 80136814 ####[facility] (DEFAULT)[address] [place] [address] [place] Abs# 0.4 x10 Normal 0.0-0.8 [facility] Comment on above: Performed By: #### 6 244821, 91386023, 4245896711, 0341526, 40156463, 23266067, 2709180, 1907265, 25530562 ####[facility] (DEFAULT)[address] [place] [address] Neut Abs# 3.5 x10 Normal 1.5-9.2 [facility] Comment on above: Performed By: #### 6 534326, 01787453, 6236854704, 9687203, 20501839, 11885609, 0955252, 5548982, 06848904 ####[facility] (DEFAULT)[address] [place] [address] Neutrophils/100 WBC (Bld) 47 % Normal 44-88 [facility] Comment on above: Performed By: #### 6 626092, 43929436, 4820263721, 8544342, 34366875, 41250884, 0509863, 7539788, 63883520 ####[facility] (DEFAULT)[address] [place] [address] CBC w/ Auto Diffon 4 Erythrocyte distribution width (RBC) [Ratio] 13.6 % Normal 11.5-15.0 [facility] Comment on above: Performed By: #### 6 035048, 79787595, 0539574835, 0023667, 36325309, 62330727, 0098328, 1975169, 94984164 ####[facility] (DEFAULT)[address] [place] [address] Hematocrit (Bld) [Volume fraction] 42.1 % High 33.7-40.4 [facility] Comment on above: Performed By: #### 6 622528, 32030845, 1847512376, 2530224, 03300044, 92739520, 1424671, 3145982, 01690768 ####[facility] (DEFAULT)[address] [place] [address] 62578 Hemoglobin (Bld) [Mass/Vol] 14.1 g/dL Normal 11.3-15.9 [facility] Comment on above: Performed By: #### 6 589752, 68546569, 0578760631, 0395507, 67796210, 44269392, 1484531, 3499495, 77180263 ####[facility] (DEFAULT)[address] [place] [address] 34060 MCH (RBC) [Entitic mass] 29 pg Normal 24-34 [facility] Comment on above: Performed By: #### 6 804161, 35682555, 1062559039, 9736846, 27469487, 74855519, 9390758, 8960202, 50906839 ####[facility] (DEFAULT)[address] [place] [address] 78438 MCHC (RBC) [Mass/Vol] 34 g/dL Normal 26-37 [facility] Comment on above: Performed By: #### 6 094297, 07432795, 5838002025, 4680634, 46565533, 79915860, 5988619, 1889566, 10487832 ####[facility] (DEFAULT)[address] [place] [address] 81838 MCV (RBC) [Entitic vol] 86 fL Normal 81-100 [facility] Comment on above: Performed By: #### 6 463716, 48510522, 6431698191, 6426985, 96928595, 12191504, 6909846, 3334667, 17137700 ####[facility] (DEFAULT)[address] [place] [address] 45121 Platelet 383 x10 Normal 138-427 [facility] Comment on above: Performed By: #### 6 345991, 72552442, 9669980911, 2267548, 24346800, 60319839, 6252891, 7495481, 10362314 ####[facility] (DEFAULT)[address] [place] [address] 24217 Platelet mean volume (Bld) [Entitic vol] 7.9 fL Normal 6.3-10.2 [facility] Comment on above: Performed By: #### 6 976616, 12554357, 9021774061, 5364361, 04730631, 98988119, 1405071, 5426197, 28503148 ####[facility] (DEFAULT)[address] [place] [address] RBC 4.91 x10 Normal 3.70-5.30 [facility] Comment on above: Performed By: #### 6 134525, 23056229, 0621521485, 6397618, 58596369, 85549692, 9508245, 2474926, 67984651 ####[facility] (DEFAULT)[address] [place] [address] 71655 WBC 7.4 x10 Normal 3.5-10.5 [facility] Comment on above: Performed By: #### 6 554048, 74403173, 0104372553, 6656975, 10172259, 24095564, 9829628, 4965830, 36564763 ####[facility] (DEFAULT)[address] [place] [address] 51625 Man Diff? Auto Invalid Interpretation Code [facility] Comment on above: Performed By: #### 6 212857, 40884979, 0431185512, 8580564, 52558094, 74741969, 4864820, 7381063, 97807688 ####[facility] (DEFAULT)[address] [place] [address] 04270 Free T4on 10-28-2023 Free T4 [Mass/Vol] 0.73 ng/dL Normal 0.61-1.12 [facility] Comment on above: Performed By: #### 6 873329, 49486727, 3202401412, 3546645, 84886136, 09930953, 6705660, 5048417, 05210713 ####[facility] (DEFAULT)[address] [place] [address] HgbA1c Standardon 10-28-2023 .Hb 14.4 Invalid Interpretation Code [facility] Comment on above: Performed By: #### 6 137242, 60861106, 8832874319, 1206512, 43017849, 17948883, 8339103, 5511264, 32956976 ####[facility] (DEFAULT)[address] [place] [address] .Hgb A1c 0.48 g/dL Invalid Interpretation Code [facility] Comment on above: Performed By: #### 6 160341, 37919502, 8019193327, 2983511, 25903620, 40829597, 3844145, 6224109, 36041762 ####[facility] (DEFAULT)[address] [place] [address] Glucose [Mass/Vol] 102 mg/dL Invalid Interpretation Code [facility] Comment on above: Performed By: #### 6 721894, 53076087, 5922137340, 0207966, 90492081, 45350495, 5289390, 1915992, 88450211 ####[facility] (DEFAULT)[address] [place] [address] HbA1c (Bld) [Mass fraction] 5.2 % Normal 4.6-6.2 [facility] Comment on above: Performed By: #### 6 931809, 29090353, 1542423061, 4649294, 92066941, 84555046, 1859538, 8746529, 56478417 ####[facility] (DEFAULT)[address] [place] [address] Miscellaneous Testing LCon 0 10-28-2023 Test Code LC [id number] Invalid Interpretation Code [facility] Comment on above: Performed By: #### 1 [id number] ####[facility] (DEFAULT)[address] [place] [address] Test Name LC anti-mullerian hormone Invalid Interpretation Code [facility] Comment on above: Performed By: #### 1 [id number] ####[facility] (DEFAULT)[address] [place] [address] Provider Orderson 10-28-2023 Provider Orders [id number] 20 [id number]#1 [facility] 10-28-2023 TSH Qn 2.34 m[IU]/L Normal 0.45-5.33 [facility] Comment on above: Performed By: #### 6 753072, 66443511, 2045603313, 3532394, 98974349, 09876868, 6960162, 6644461, 14419971 ####[facility] (DEFAULT)[address] [place] [address] hCG Quantitativeon hCG Quantitative <0.6 Normal 0.0-0.6 [facility] Comment on above: Result Comment: Post -Menopausal Reference Range is: 0.1-11.6 mIU/mL Performed By: #### 6 419196, 84627666, 3527399257, 3298575, 36090091, 61326695, 5371312, 4752068, 59056224 ####[facility] (DEFAULT)[address] [place] [address] Outside Recordson 10-18-2023 Outside Records [id number]#1. [facility] Coding Summaryon 10-06-2023 Coding Summary HTMLBase 64 HgmeunzjJSb8jRl+PGhlYW Q+WF1YUZLjK44dgAUwqH7t P9XYPCeDBlrmWLKCMWiTAk LtspXhGH1sxWHgAWDn IC8+TF3iBNEhEgzmhQYgn3 A7oBI4M29wbg3iHFylfOF3 ZMKjToZwpicfc2gsoEt1QK cuNmluOyBt GFVbgM84GKC0pH00Da71sS CftHDky5fxlWr1WbCxYQEq RMX4mFovTDkzk0EmRLFaL6 1zvLQkz0K5 IVYtoPbykCOvGaUzkXC5qF 6hNJcizprzb2hxiujvWdy3 uz47tNSbm0T8fKS2T9Fxbi Z7LNSivQVc FramnGPPpO1nqhyth3qbug kdBpQxPIWmPRg5RTl4XQZb rCnbCfGhYY04LDR9JOKhgj VdY1ObBSNv wUrbKuE0m4O1Ay9RC5JWYr noG0XJGLYLAMnuwCP+PC90 xz30C9FbVlagDva3KMSuNE X1uJU3yO0t GMLmUAidg7U0lAW6C0Npbs Zsld0kx6ifDXNvGYvsN80u hLVfe2G0FZWjyLM6VXTqcQ dnIrZwcC18 Oyc+UUJhvApon3AsMcopx4 euq6rvlUn0AfnmALIsisEw jAapKLX9l9OqKc3aPUJupL M4vZO2qH0w EjEmGsW2XXwlQ214AjCgfK HpVdnrW26dI5IanCT+PHRy Fth4QEHnrVtmVT9aR9FzFK RpbmctbGVm cMssSE4dPYDlbfelUDUheF 6uAMIrJ6g3SrFaSgS1PNoe V3TgEXDxegzgGw78cU0qUh SxIkN7RPuj L4YyelB7DNPoyGGcOJsrKW U1U97oq4H8DHOoOUYiIST2 aHL9dI0mhEduncbzzALznC sgdmVydGlj MNluFBtbN456REVjmEdjMt NvZGluZyBEYXRlOiAgMDIv MDEvMjAyNDwvdGQ+PHRkIH O8aHtbQTIa kTHbLYdkAn9foZclwLpzDN 1cQQLhjibjABKzmD4uZGCn nGTcdQwcTK0gPVEmrecch9 61PdAcPZQ5 BIGvoDOrU9KzcF3vRzHyXJ UcALGhS2AqkYYdCNlkQ023 EJcuAtW7MAAlzcUhF9BoNF FsaWduOiB0 o3E6Di7Fa7AnpegzW5FkoF EgIdTdYujqQOe5A9KyKsog dHI+IH74ATJaRB83BTj7DC N7mXoeOHui RGLlP4BdwT1vEuFlXFMaQE RkOyc+PHRhYmxlIHdpZHRo RCyzFKVeNfAhhVjaKP3fCg 9yZGVyLWNv dBbtrDVeSpHuu6fxXPJjZW okSO1qwZlmT7IouHH1NTRv k2d2Cu88D10gU3HhbUQ+PG HfxEN1xAS2 qC3fGrBqIzJ4LFhvS771Hr XmiVBcDpbil1fba5vraQv9 ArO0QLPiwcIgeKbvBNA7w3 SjQp16L60q IHdpZHRoPSIxNSUiIHZhbG gpza5trR7fDt0+PGNvbCB3 gRU0zY6kIwIpBmF3CFmcP4 49InRvcCIv Iirzh5rrl0enfKk1NtBjTO PhicVaoBqcNUL0v7UwTu93 L2IvrFvzk7HxKjl2jv58jT Qnr4M8vBG5 J5JjPKHlbhmgxVXsuSgbMK 6pSPDfjkbzVXDxiQ8mXXSl O6e3KhLqVzM8VZhtV9Eisw H6ICHplMEs JEVazJWGeX4bpxtgi4itzc hzBuPoYNTjJOr2STe0IIIg cInaQaGkOXM0MoE6RVZ1oZ UeiI4xoGot meyveX6pDmb+DJR0dEBmdP FCBE6fQbnwfTS+PHRkIHN0 wLxtEVymXSTleK2gLXLnH6 n1TwQrRxZ3 QDrkP3OotsT9HNVjcNNmKS AceJEGbM5bspsmi5hjzclg GoSzXCZhLAj5ASl4RAOekF duOiBsZWZ0 MtG4QER8lVNqvD6jyEykbr qkqU5sUro+QmlydGggRGF0 VYp3E0TjJuq0ZIQceGckQP 0ncGFkZGlu Yo8djNuglFglLK5nCKWmhn xvn246DaEmd4tiXUFvnAWh YXpoTVH8A33oy5W6LIYrON KnCJQ2fNA8 iD5xqEtcjwpmnCMmhOzfcl XfuCuaNBbhEEiiD025XCVe wZqlYyOrDNy7E2RwEdp1HL XucAorKH2r bVOeMAaqXy7iuWchkLicDZ 0jCOZylqfyc593VrAcd2mm VOJlsHCzPXdbTAM6P26rs1 W0SROkVOKz ESA7dYH1wO6ntBodfvrdpN VmdDsgdmVydGljYWwtYWxp H493PUEysDtgIqWicGq0Z6 FwBgg2BYMk iHwsLE5xbQMoLHqmJp1ftR jfzWfwGE9oAUZtyjxdk716 EaRap2ziXGQreRJaAYrjTF I9L09to8C6 ECXwRYOgSSV6cMU4mO3soI lnbjogbGVmdDsgdmVydGlj PTjdUTuxX675IJTmxNbePu BhdGllbnQg IIwjQYz4A5SyDdetmEB+PC 47VYMuFC32tZBdtQFzz8os uWh8UhHgMBAlLKR3iQxsFI wyi9IgLYPc N57idAPkt5H4PMNgqXqjzW IjUgXvmKM0xN1bXBtizfrl b3cgugfoLpuum7qjxw05pN 45C13qCRle ZHRoPSIzMCUiIHZhbGlnbj 4nuB3uVs8+EYXrgOF4nSE3 vN9cAGExMyS8FUeyM930Mp RvcCIvPjxj w9sdy4osiJy4JgO2SCNvce YveSkeRQB0c2NhIg85D11u IHdpZHRoPSIyMCUiIHZhbG nqyt6kfM2c Ii8+EILtvDT6rPF9cK0xTi HvUjO9NYinQ023SfHulOUp RodoB90hS8XodBJ+PHRyPj q1VQUcxBgl PG2gkWZfPYqhNf4sCTP1Fu XtTkIaJWjzW3ZtQLDrpjiv hgmvyFQ5USNqTRMjgZ89Fm 9udDogMTBw tFUUnE5lbufsp0orsdqaGj FcKPGeMOz5GMm0RQRsxIbh LyKaOOE3JpL4FJY8tLQdpU 1hbGlnbjog yS8jI9BqDDHityztKk07sM 7tPrJvPsE1CYhpKcn+Q1JB Z6PVQdGxAHWHRMWNUwGdJO lDSEVMTEU8 J8AfKlh6MRLkwEjbFC0wqN BbJVgjJh7hwHqyaLizGC8x ALYzmnroTQImlN5bVNVdvP UijRvoZK8i XVNeqlgax284OvNwFVG0GY EhsTRtS9WqbU3uYfGqWCHz MPMiB4KgkNZlSHmxW437JN tcWgN5SDPi ogOiX2BtSMQfbVsrMwU3j0 T5Tq2wZb5tZR3cJYp7TZ10 BO35tLQvb4Z6dDE6N1JrCG Rpbmctcmln mRJ7PAJeLBFnsG63vFZsUV ruXs6kv3P8g947WQBzULKg wV76Wv5irAhgVFAquRNVxE 9fxibbh1iz xgwoKhMlNRGiAOo2VAi3CA AllTkoVcLzZSO4TlZ8FOQ4 zRGslT9guHrksugdyP4mTy c+MjUgWWVh rwK4W1NzUmb4BXWosUqbHC 8mqMWkOYrrKs8ppUqyeNpf PC4tELJcmfgwPIGjpW1lRH JvdHRvbTog HF7eXLZmqtiwq688DaRiQG D6LDNrmMEtH3TifQ5fLkOr ZGYeRDMsD3SilDBfQMwbJ7 24ZVrpJrA4 GHBkzuDzH1JhDIKtpHtnXt I1b4A5Fi5HLX4IZQE4H0Iy Mjz5YSEuxJpnST7ovJOpHW egUj4scNqb qVdjLI3rGCVmjjiuZABgdP 3gYFXevPJjvNlkQM4pLFNb qafar961PjDlZUH3BGGuvE PkX7ZszI6f HrNtZILkGKZkX2PfaCCmNQ hlJ098XNdhEsP7MAHsiaDt G4ZtBKQkfChyYcV5v8N1Ft 5PUDwvdGQ+ WC85ra05X9XbSsmzXxm6WO MfTHZ8wHV3uT1uAXHgLLyc s1E1qJZ7K8XwjsZayz8lx4 xsYXBzZTog F91grTNyt0Y6LNArrYS5QU KwcOnvSfHogC06Bkm+PGNv tKzsv9DhMfhin8emj3pnoC p9FxRuYIRg ckXkrVyoESU1i3RwOi49F3 9sIHdpZHRoPSIzMCUiIHZh dNlmho6isE3rXb9+PGNvbC S5vGW5vP7g DnUbZtJ4AQnkH362JdBrmJ MgGihzl0njn0ewzQi3YaXz WPUlnnLvtKccYIV1b3ZcXg 55L1EpeJhk b2CtYme0rr53mSXgh5U3rM E6Z8QbWVWrajbgtRAznQlb MM2pPXHnmwkdMNWghI3mWV KbL7l6CyQf DuR1WGznL7NutlV3OCCrlQ UyTRVdrJFQkW2iynmnl7et ayklYvPbUQGbSSe4BGl7PC FsaWduOiBs YJH5DxA1OJL6hERxyW0tqP jrnzzrxW1dBae+DHn9a6lt fLCmXQ2izMK5IO08EI76oT Jwo9G9vZM2 O2KyMNLwphncqpmoiSM7ON XjVWDepP05Sr5cyJfeLu0a GCHuNSS2TYCmpORcL5ZurW 9yOiAjMDAw PKTzW8HlzBMcPKhyX524YA ibCaZ4BCPnizWfR8CbWPAz wOleGbV7h1Z0Fc2DWK34JV 02OL47vPJt b4G5kLF8D4SuGECqqpvhrk yooQV1SHUxEWPpcF28Hg2d lOueXw6cJBPbQAU2FEFnqH BwL9TwdX7v NoXkQMZwSIYvR7YirOFyPT psT411MBxkNkK7RZIojzVe W4AtGFZivCfbBrE5l7A7Ti 8NPy53IU22 LL07uJFcn7V5zAL0E2GgJR TybmdwnzpclVQ3BHAzRIKx eI60Uy5mcLqdZt2lPVHqCH Z4GEOfxPGl L8HzzR0pSiMqFTOoSWMoI2 PldJJhWOwhY068XUdsNsX7 PBBhukUoU1UjYLLawPjuFk K3a2L0Nw4N NAqcwqw7X2WkHdigiDQ+PC 94HUHgUO06fXHbqDYrf2uq jTs1KpAxJVFjZKJ9fBrcYX gmu3UrFIAt Y29 (more content not included)... Normal [facility] ED Clinical Summaryon 2023 ED Clinical Summary [facility] ? Urgent Care [address] [place], [place] [id number] Clinical Summary PERSON INFORMATION Name: BONNIE ASTUDILLO Age: 23 Years Sex: FEMALE : 2000 MRN: Acct#: Visit Reason: Dental pain; UC - Dental Pain; DENTAL PAIN Arrival: 09/30/2023 14:27:41 Discharge: 09/30/2023 15:02:00 LOS: 000 00:35 Check In: 09/30/2023 14:27:41 Checkout: 09/30/2023 15:02:00 Address: [address] [place] [address] [address] [place] [address] PCP: Anthony Gomez MD PROVIDER INFORMATION Provider Role Assigned Unassigned Alysha Jay RN ED Nurse 09/30/2023 14:35:57 Spenser Fang ED PA 09/30/2023 14:38:12 VITALS INFORMATION Vital Sign Triage Latest Temperature Tympanic Temperature Temporal Artery Pulse Rate O2 Sat 99 % 99 % Respiratory Rate Blood Pressure /103 mmHg /103 mmHg MEDICAL INFORMATION Medications Given: Allergy Information: No Known Medication Allergies PHYSICIAN DOCUMENTATION DISCHARGE INFORMATION: Discharge Disposition: Home Discharge Location: Home PATIENT EDUCATION INFORMATION Instructions: How to Take Your Blood Pressure; Hypertension, Adult; Dental Pain Follow-Up: With: Address: When: Anthony Gomez [address] [place], [place] [id number] [facility] () Within 3 to 5 days Comments: Diagnosis today is right upper 3rd molar infection. From evaluation you have pain and swelling in the localized area of your mouth. This is most likely an infection, we are starting on antibiotics to take as prescribed. -Begin Amoxicillin 500mg 1 every 8 hours for 10 days. -Begin Peridex mouth wash twice daily -Begin ibuprofen 800 mg every 8 hours as needed for dental pain, not to exceed 3 days. -Take Tylenol 500 mg 1-2 every 4-6 hours as needed for dental pain. Please begin saltwater gargles. You may follow up with [facility] dental clinic at . You may follow up with [facility] [phone] ext: [phone]. You may also follow up with [facility] dental clinic at [phone]. You may call [facility] at [phone]. For adult dental emergencies please call [phone]. Return for worsening symptoms or concerns, spiking high fevers, redness going up or down side of face, swollen eyes, or any further questions. DIAGNOSIS: Dental infection; Elevated blood pressure reading without diagnosis of hypertension Patient Understands: Yes - Patient/family/caregiv er verbalizes understanding of instructions given Comment: Normal [facility] ED Patient Summaryon 024 ED Patient Summary [facility] ? Urgent Care [address] [place], [place] [id number] PATIENT DISCHARGE INSTRUCTIONS Patient Information Name: BONNIE ASTUDILLO Age: 23 Years Date of : 2000 Reason For Visit: Dental pain; UC - Dental Pain; DENTAL PAIN Arrival Time: 09/30/2023 14:27:41 Primary Care Physician: Jason MCNEAL, Anthony Santo Attending Physician: Comment: Patient Education With: Address: When: Anthony Gomez [address] [place] [id number] [facility] (1) Within 3 to 5 days Comments: Diagnosis today is right upper 3rd molar infection. From evaluation you have pain and swelling in the localized area of your mouth. This is most likely an infection, we are starting on antibiotics to take as prescribed. -Begin Amoxicillin 500mg 1 every 8 hours for 10 days. -Begin Peridex mouth wash twice daily -Begin ibuprofen 800 mg every 8 hours as needed for dental pain, not to exceed 3 days. -Take Tylenol 500 mg 1-2 every 4-6 hours as needed for dental pain. Please begin saltwater gargles. You may follow up with [facility] dental clinic at . You may follow up with [facility] [phone] ext: [phone]. You may also follow up with [facility] dental clinic at [phone]. You may call [facility] at [phone]. For adult dental emergencies please call [phone]. Return for worsening symptoms or concerns, spiking high fevers, redness going up or down side of face, swollen eyes, or any further questions. How to Take Your Blood Pressure Blood pressure is a measurement of how strongly your blood is pressing against the chakraborty of your arteries. Arteries are blood vessels that carry blood from your heart throughout your body. Your health care provider takes your blood pressure at each office visit. You can also take your own blood pressure at home with a blood pressure monitor. You may need to take your own blood pressure to: ? Confirm a diagnosis of high blood pressure (hypertension). ? Monitor your blood pressure over time. ? Make sure your blood pressure medicine is working. Supplies needed: ? Blood pressure monitor. ? A chair to sit in. This should be a chair where you can sit upright with your back supported. Do not sit on a soft couch or an armchair. ? Table or desk. ? Small notebook and pencil or pen. How to prepare To get the most accurate reading, avoid the following for 30 minutes before you check your blood pressure: ? Drinking caffeine. ? Drinking alcohol. ? Eating. ? Smoking. ? Exercising. Five minutes before you check your blood pressure: ? Use the bathroom and urinate so that you have an empty bladder. ? Sit quietly in a chair. Do not talk. How to take your blood pressure To check your blood pressure, follow the instructions in the manual that came with your blood pressure monitor. If you have a digital blood pressure monitor, the instructions may be as follows: 1. Sit up straight in a chair. 2. Place your feet on the floor. Do not cross your ankles or legs. 3. Rest your left arm at the level of your heart on a table or desk or on the arm of a chair. 4. Pull up your shirt sleeve. 5. Wrap the blood pressure cuff around the upper part of your left arm, 1 inch (2.5 cm) above your elbow. It is best to wrap the cuff around bare skin. 6. Fit the cuff snugly, but not too tightly, around your arm. You should be able to place only one finger between the cuff and your arm. 7. Position the cord so that it rests in the bend of your elbow. 8. Press the power button. 9. Sit quietly while the cuff inflates and deflates. 10. Read the digital reading on the monitor screen and write the numbers down (record them) in a notebook. 11. Wait 2?3 minutes, then repeat the steps, starting at step 1. What does my blood pressure reading mean? A blood pressure reading consists of a higher number over a lower number. Ideally, your blood pressure should be below 120/80. The first ( top ) number is called the systolic pressure. It is a measure of the pressure in your arteries as your heart beats. The second ( bottom ) number is called the diastolic pressure. It is a measure of the pressure in your arteries as the heart relaxes. Blood pressure is classified into four stages. The following are the stages for adults who do not have a short-term serious illness or a chronic condition. Systolic pressure and diastolic pressure are measured in a unit called mm Hg (millimeters of mercury). Normal ? Systolic pressure: below 120. ? Diastolic pressure: below 80. Elevated ? Systolic pressure: 120?129. ? Diastolic pressure: below 80. Hypertension stage 1 ? Systolic pressure: 130?139. ? Diastolic pressure: 80?89. Hypertension stage 2 ? Systolic pressure: 140 or above. ? Diastolic pressure: 90 or above. You can have elevated blood pressure or (more content not included)... Normal [facility] Urgent Care Note- Provideron 09-30-2023 Urgent Care Note- Provider Patient: BONNIE ASTUDILLO Age: 23 years Sex: FEMALE : 2000 Associated Diagnoses: Dental infection; Elevated blood pressure reading without diagnosis of hypertension Author: Spenser Fang Basic Information Time seen: Date & time 09/30/2023 14:38:00. History source: Patient. Arrival mode: Walking. History limitation: None. Additional information: Chief Complaint from Nursing Triage Note : Chief Complaint 09/30/2023 14:35 EST Chief Complaint dental pain upper right jaw. states she has a broken wisdom tooth and can't get in to the oral surgeon until April. this started one week ago 03/14 . Patient is a pleasant, 23-year-old who states her right upper third molar, pointing to her wisdom tooth feels like it is possibly broken off. She has pain at the tooth and around the gumline. She called her dentist who can see her in April. She states she is already had 7 days of pain which is mild to moderate, gradually persistent becoming bothersome as a 7 out of 10 pain. Taking ibuprofen does help. She has not had antibiotics of recent. She has pain that radiates towards her right ear. She has not noticed any swollen lymph nodes, rash on her face, TMJ difficulty Review of Systems Constitutional symptoms: No fever, no chills. ENMT symptoms: Ear pain, sinus pain, right upper 3rd molar pain. ? broken, no sore throat, no nasal congestion. Gastrointestinal symptoms: No abdominal pain, no vomiting, no diarrhea. Neurologic symptoms: No headache, no dizziness. Health Status Allergies: Allergic Reactions (Selected) No Known Medication Allergies. Medications: (Selected) Prescriptions Prescribed Peridex 0.12% mucous membrane liquid: 0.018 gm = 15 mL, Oral, BID, for 10 day(s), (swish and spit; do not swallow), 473 mL, 0 Refill(s) amoxicillin 500 mg oral tablet: 500 mg = 1 tab(s), Oral, TID, for 10 day(s), 30 tab(s), 0 Refill(s). Past Medical/ Family/ Social History Family history: Anxiety Father Sister Diabetes mellitus Grandparent Hypertension Father Grandparent Arthritis Grandparent Depression Father Sister Cancer Mother Cataract finding Grandparent ADHD - Attention deficit disorder with hyperactivity Sister Brother Bipolar 1 disorder Father Sister Anxiety Father Brother . Social history: Social & Psychosocial Habits Alcohol 09/30/2023 Alcohol Use: Current Frequency: 1-2 times per year Comment: Socially. Every couple of months. - 02/02/2023 11:53 - Ailin Martinez RN Employment/School 10/28/2021 Status: Employed Exercise 12/01/2021 Exercise type: Walking Comment: 1-2 times a month - 12/01/2021 10:44 - Magnolia Henning Home/Environment 10/28/2021 Lives with: Roomate(s)/Friend(s), Significant other Home equipment: crutches Nutrition/Health 10/28/2021 Caffeine intake amount: 2 cups daily Sexual 12/01/2021 Sexually active: Yes Substance Use 09/30/2023 Substance use: Current Type: Marijuana Frequency: 1-2 times per month Tobacco 09/01/2021 Smoking tobacco use: Former smoker, quit more 10/28/2021 Smoking tobacco use: 4 or less cigarettes(less 09/30/2023 Smoking tobacco use: Former tobacco user Electronic Cigarette/Vaping 10/28/2021 Electronic Cigarette Use: Former use, quit more denis Type: Nicotine infused Use per Day: 1-25 Inhales/day Comment: just started using yesterday to quit smoking cigarettes - 08/24/2019 12:13 - Demar ALLRED, Mayte 09/30/2023 Electronic Cigarette Use: Use, within last 90 days Type: Nicotine infused . Physical Examination Vital Signs Vital Signs 09/30/2023 14:35 EST Temperature Temporal 36.6 DegC Peripheral Pulse Rate 98 bpm Respiratory Rate 16 br/min Systolic Blood Pressure 161 mmHg HI Diastolic Blood Pressure 103 mmHg HI SpO2 99 % Oxygen Therapy Room air BP Method Automatic . General: Alert, no acute distress, Not ill-appearing, Skin: Warm, dry, no rash, normal turgor. Head: Normocephalic, atraumatic. Neck: Supple, trachea midline, full range of motion. Eye: Pupils are equal, round and reactive to light, extraocular movements are intact. Ears, nose, mouth and throat: Tympanic membranes clear, Mouth: moist, Tooth: Right, upper, molar, partially eruptud 3rd upper molar with gumline inflammation, edema, and a 2mm area of pustule lateral aspect. , no dental caries, no fracture, not loose, Throat: Normal. Cardiovascular: Regular rate and rhythm, No murmur. Respiratory: Lungs are clear to auscultation, respirations are non-labored, breath sounds are equal. Gastrointestinal: Soft, Nontender. Musculoskeletal: Normal ROM, normal strength. Neurological: Alert and oriented to person, place, time, and situation, No focal neurological deficit observed, CN II-XII intact. Psychiatric: Cooperative, appropriate mood & affect. Medical Decision Making Rationale: Dscharge diagnosis of right third molar partially erupted, possibly impacted wisdom tooth. She has sign (more content not included)... Normal [facility] Urgent Care [place] 024 Urgent Care Record [facility] ? Urgent Care [address] [place], [place] [id number] PATIENT DISCHARGE INSTRUCTIONS Patient Information Name: BONNIE ASTUDILLO Age: 23 Years Date of : 2000 Reason For Visit: Dental pain; UC - Dental Pain; DENTAL PAIN Arrival Time: 09/30/2023 14:27:41 Primary Care Physician: Anthony Gomez MD Attending Physician: Comment: Visit Diagnosis: Diagnoses This Visit Dental infection (K04.7) Dental pain ([id number]) Elevated blood pressure reading without diagnosis of hypertension (R03.0) UC - Dental Pain ([id number]) If you received any narcotics, sedation, or any other medication that causes drowsiness for the next 24 hours, unless otherwise directed: ? Do not drive a car. ? Do not operate machinery such as power tools, lawn mowers, drills, sewing machines, or stoves ? Avoid alcoholic beverages and drugs for allergies, nerves, or sleep ? Do not make important personal or business decisions or sign any legal documents With: Address: When: Anthony Gomez [address] [place], [place] [id number] Business (1) Within 3 to 5 days Comments: Diagnosis today is right upper 3rd molar infection. From evaluation you have pain and swelling in the localized area of your mouth. This is most likely an infection, we are starting on antibiotics to take as prescribed. -Begin Amoxicillin 500mg 1 every 8 hours for 10 days. -Begin Peridex mouth wash twice daily -Begin ibuprofen 800 mg every 8 hours as needed for dental pain, not to exceed 3 days. -Take Tylenol 500 mg 1-2 every 4-6 hours as needed for dental pain. Please begin saltwater gargles. You may follow up with [facility] dental clinic at . You may follow up with [facility] [phone] ext: [phone]. You may also follow up with [facility] dental clinic at [phone]. You may call [facility] in [facility] at [phone]. For adult dental emergencies please call [phone]. Return for worsening symptoms or concerns, spiking high fevers, redness going up or down side of face, swollen eyes, or any further questions. Medication Information: The exam and treatment you received today in the [facility] were for an urgent problem and are not intended as complete care. It is important for you to follow up with a doctor, nurse practitioner, or physician?s life enrichment assistant for ongoing care. If your symptoms become worse or you do not improve as expected and you are unable to reach your usual health care provider, you should return to the Emergency Department, we are available 24 hours a day. For those patients who have received Radiology results, the interpretation of your X-ray as given to you by our Urgent Care physician is only a preliminary report. The Radiologist will review your films and if there is a change in the diagnosis you will be notified by phone. Please make sure you have provided a working phone number so we can reach you if necessary. In the event that you had a lab culture while you were a patient in the Urgent Care, you will be notified by phone if there is a need to change your antibiotic. Please make sure you have provided a working phone number so we can reach you if necessary. [facility] has provided you with a complete list of medications post discharge. Please inform your slope hoist operator/provider of your visit and for further instruction on these medications. Any specific questions regarding your chronic medications and dosages should be discussed with your primary care physician(s) and/or pharmacist. New Medications [facility] [id number], [address], [place] [id number], [phone] amoxicillin (amoxicillin 500 mg oral tablet) 1 tab(s) Oral (given by mouth) 3 times a day (scheduled) for 10 Days. Refills: 0. chlorhexidine topical (Peridex 0.12% mucous membrane liquid) 15 Milliliter Oral (given by mouth) 2 times a day (scheduled) for 10 Days. (swish and spit; do not swallow). Refills: 0. Visit Information Allergies: Substance Reaction Symptoms Type Comments No Known Medication Allergies Drug Vital Signs: Vitals and Measurements this Visit (last charted value for your 09/30/2023 visit) Vital Signs This Visit Temperature Temporal: 36.6 DegC Peripheral Pulse Rate: 98 bpm Respiratory Rate: 16 br/min Systolic Blood Pressure: 161 mmHg Diastolic Blood Pressure: 103 mmHg SpO2: 99 % Oxygen Therapy: Room air Blood Pressure Method: Automatic Measurements This Visit Height/Length Measured: 170.18 cm Weight Measured: 111.13 kg Weight Dosin.130 kg Body Mass Index: 38.37 kg/m2 BSA Measured: 2.29 m2 Problems List: Problem Onset Comments Depression None Patient Education How to Take Your Blood Pressure Blood pressure is a measurement of how strongly your blood is pressing against the chakraborty o (more content not included)... [facility] Mikael 01-04-2022 L -- ---- Specimen: [id number] Received: 01/05/22 Status: QUOC Jcarlos Num: [id number] Spec Type: Surgical Subm Dr: Rodney Lema MD Tissues: A Skin-Other than Cyst, tag, debridement or plastic repair (SCALP) Procedures: HE Stain/5, Gross/Brooke L4 ---- Patient Age/Sex Location Account Attending Physician ---- Bonnie Astudillo / LATESHA [id number] Rodney Lema MD ---- SPEC NUM: [id number] RECD: 01/05/22 STATUS: QUOC GARBER NUM: [id number] JANE: 01/04/[address] [facility] [address]: Rodney Lema MD ENTERED: 01/05/[address] [facility] [address]: Dea,Amy SPEC TYPE: Surgical DEPT: MAG FUENTES ORDERED: HE Stain/5, Gross/Micro L4 ORDERED: HE Stain/5, Gross/Micro L4 Pathological Diagnosis Skin lesion, scalp, excision: - 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 NOTE: Immunohistochemical studies of SOX-10 and S100 have been performed on block A2. The lesional cells are positive for SOX-10 and S100. The histomorphology and immunoprofile support the above diagnosis. Clinical Information L98.9 Gross Description Received in formalin labeled with the patient's name, number and skin lesion on scalp is a 1.4 x 1 cm longo skin ellipse excised to a maximum depth of 0.7 cm. The skin surface demonstrates a 1.6 x 1.5 x 1 cm longo, lobulated nodule. The resection margin is inked blue and sectioning reveals longo, rubbery cut surfaces. Entirely submitted in 3 cassettes as follows: A1 - Tips A2-A3 - Remainder of specimen, sequentially submitted Type of Fixative: 10% Neutral Buffered Formalin (SM/YJ) ---- Specimen: [id number] Received: 01/05/22 Status: QUOC Garber Num: [id number] Spec Type: Surgical Subm Dr: Rodney Lema MD Tissues: A Skin-Other than Cyst, tag, debridement or plastic repair (SCALP) Procedures: HE Stain/5, Gross/Micro L4 ---- Patient: Bonnie Astudillo [id number] (Continued) ---- Specimen: [id number] Received: 01/05/22 (Continued) Signed (signature on file) Debora Cintron MD 01/07/22 0930 ---- Specimen: [id number] Received: 01/05/22 Status: QUOC Garber Num: [id number] Spec Type: Surgical Subm Dr: Rodney Lema MD Tissues: A Skin-Other than Cyst, tag, debridement or plastic repair (SCALP) Procedures: JASWINDER Ellison/5, Gross/Micro L4 ---- Patient: Bonnie Astudillo [id number] (Continued) ---- Specimen: [id number] Received: 01/05/22 (Continued) Microscopic Description Six glass slides with H E stained material and two IHC stained slides have been examined. The microscopic findings support the above pathologic diagnosis. ANALYTE SPECIFIC REAGENT (ASR) DISCLAIMER: The use of one or more reagents in the above tests is regulated as an analyte specific reagent (ASR). The performance characteristics were determined by the [facility]. Immunohistochemistry assays have not been validated on decalcified tissue. Results should be interpreted with caution given the possibility of false negative results on decalcified specimens. They have not been cleared by the [place] Food and Drug Administration. The FDA has determined that such clearance or approval is not necessary. CPT Codes 11447, 05804, 33684 ---- ---- Specimen: [id number] Received: 01/05/22 Status: QUOC Garber Num: [id number] Spec Type: Surgical Subm Dr: Rodney Lema MD Tissues: A Skin-Other than Cyst, tag, debridement or plastic repair (SCALP) Procedures: HE Stain/5, Gross/Micro L4 ---- Patient: Bonnie Astudillo [id number] (Continued) ---- Signed (signature on file) Debora Muller (more content not included)... [facility] Vital Signs Date Time Vital Sign Value Performing Clinician Rick todd 10-06-2023 08:53-0500 Body height 170.2 cm [employer] Phone: [facility] [employer] 10-06-2023 08:53-0500 Body mass index (BMI) [Ratio] 38.28 kg/m2 [employer] Phone: [facility] [employer] 10-06-2023 08:53-0500 Body weight 110.86 kg [employer] Phone: [facility] [employer] 10-06-2023 08:53-0500 Diastolic blood pressure 72 mm[Hg] [employer] Phone: [facility] [employer] 10-06-2023 08:53-0500 Systolic blood pressure 120 mm[Hg] [employer] Phone: [facility] Healthcare Encounters Encounter Date Encounter Type Care Provider Facility Start: 06-01-2024 End: 06-01-2024 ambulatory Anthony Gomez Facility:[facility] Start: 05-28-2024 End: 05-28-2024 Emergency department patient visit Anthony Gomez Facility:[facility] Start: 05-28-2024 End: 05-28-2024 ambulatory Spenser KATE Facility:[facility] Start: 05-08-2024 End: 05-08-2024 ambulatory JACKIE CELESTE Not Available Start: 04-24-2024 End: 04-24-2024 Patient encounter procedure Kenya Richter DDS Work Phone: [facility] Comment on above: Abnormal tooth erupt ion (Primary Dx); Impacted third molar tooth Start: 04-24-2024 ambulatory EKNYA RICHTER Facili ty:[facility] Start: 03-14-2024 End: 03-14-2024 ambulatory Anthony Gomez Facility:[facility] Start: 02-14-2024 End: 02-14-2024 ambulatory Anthony Gomez Facility:[facility] Start: 01-17-2024 End: 01-17-2024 ambulatory Anthony Santo Jason Facility:[facility] Start: 12-16-2023 End: 12-16-2023 ambulatory Anthony Santo Jaosn Facility:[facility] Start: 11-19-2023 End: 11-19-2023 Emergency department patient visit Anthony Santo Jason Facility:[facility] Start: 11-03-2023 End: 11-03-2023 ambulatory JACKIE CELESTE Not Available Start: 10-28-2023 End: 10-28-2023 ambulatory Anthony Santo Jason Facility:[facility] Start: 10-06-2023 End: 10-06-2023 Office outpatient new 20 minutes Jackie Celeste DO Work Phone: [facility] Comment on above: Irregular periods/me nstrual cycles; PCOS (polycystic ovarian syndrome); Insulin resistance Start: 10-06-2023 End: 10-06-2023 ambulatory JACKIE CELESTE Not Available Start: 09-30-2023 End: 09-30-2023 ambulatory Anthony Santo Jason Facility:[facility] Procedures Date Procedure Procedure Detail Performing Clinician Start: 04-24-2024 panoramic radiograph ic image Pavan Lee DMD, MD Work Phone: Plan of Treatment Date Care Activity Detail Author Start: 2048 Shingles (RZV) Vacci ne (1 of 2) Shingles (RZV) Vaccine (1 of 2) [facility] Start: 07-04-2024 End: 07-04-2024 Patient encounter procedure 07/04/2024 3:00 PM EDT Office Visit [facility] [address] [place] [address] Kenya Richter, DDS [address] [place] [id number] [facility] Start: 06-05-2024 Influenza vaccination Influenza Vacc ine (#1) [facility] Start: 11-03-2023 End: 11-03-2023 Patient encounter procedure 11/03/2023 8:30 AM EST Office Visit [facility] [address] [id number] Jackie Alonso, [address] [place] [address] [facility] Start: 10-17-2023 End: 10-17-2023 Professional / ancillary services management 10/17/2023 8:30 AM EST Ancillary Procedure [facility] [address] [place] [id number] [facility] Start: 05-06-2023 COVID-19 Vaccine ( season) COVID-19 Vaccine ( season) [facility] Start: 2019 Screening for malign ant neoplasm of cervix Pap Smear [facility] Start: 2017 Hepatitis A (HAV) Vaccine (optional start 19+ years) Hepatitis A (HAV) Vaccine (optional start 19+ years) [facility] Start: 2017 Hepatitis B vaccination Hepati tis B (HBV) Vaccine (1 of 3 - 19+ 3-dose series) [facility] Start: 2016 Hepatitis C screening Hepatitis C An tibody [facility] Start: 2016 Tetanus + diphtheria + acellular pertussis vaccine (product) Tdap Booster [facility] Start: 2013 Vaccination for volodymyr n papillomavirus HPV Vaccine (1 - 3-dose series) [facility] Antimullerian hormon e (AMH) Antimullerian hormone (AMH) Lab Routine Irregular periods/menstrual cycles Ordered: 10/06/2023 [facility] Comment on above: Ordered: 10/06/2023 CBC W Auto Different ial panel - Blood CBC and differential Lab Routine PCOS (polycystic ovarian syndrome) Ordered: 10/06/2023 [facility] Comment on above: Ordered: 10/06/2023 DHEA DHEA Lab Routine PCOS (polycystic ovarian syndrome) Ordered: 10/06/2023 [facility] Comment on above: Ordered: 10/06/2023 DHEA-sulfate DHEA-sulfate Lab Routine PCOS (polycystic ovarian syndrome) Ordered: 10/06/2023 [facility] Comment on above: Ordered: 10/06/2023 Follicle stimulating hormone Follicle stimulating hormone Lab Routine PCOS (polycystic ovarian syndrome) Ordered: 10/06/2023 [facility] Comment on above: Ordered: 10/06/2023 hCG, quantitative, hCG, quantitative, Lab Routine PCOS (polycystic ovarian syndrome) Ordered: 10/06/2023 [facility] Work Phone: Comment on above: Ordered: 10/06/2023 Hemoglobin A1c measurement Hemoglobin A1c Lab Routine Irregular periods/menstrual cycles Ordered: 10/06/2023 [facility] Comment on above: Ordered: 10/06/2023 Luteinizing hormone Luteinizing hormone Lab Routine PCOS (polycystic ovarian syndrome) Ordered: 10/06/2023 [facility] Comment on above: Ordered: 10/06/2023 Thyrotropin [Units/volume] in Serum or Plasma TSH Lab Routine PCOS (polycystic ovarian syndrome) Ordered: 10/06/2023 [facility] Comment on above: Ordered: 10/06/2023 Thyroxine (T4) free [Mass/volume] in Serum or Plasma T4, free Lab Routine PCOS (polycystic ovarian syndrome) Ordered: 10/06/2023 [facility] Comment on above: Ordered: 10/06/2023 US for US PELVIS-TRANS VAG IF INDICATED Imaging Routine PCOS (polycystic ovarian syndrome) Ordered: 10/06/2023 [facility] Comment on above: Ordered: 10/06/2023 Payers Date Payer Category Payer Medicaid [id number] 2022 Medicaid [id number] 2000 Unknown [id number] 2.16. [id number] 2000 Unknown [id number] 2.16.84 [id number] 2000 Unknown [id number] 2.16.84 0.1.600714.3.579.2.9 2000 Unknown [id number] 2.16.84 0.1.854586.3.579.2.9 2000 Unknown [id number] 2.16.8 40.1.573382.3.579.2. 1998 Unknown [id number] 2.16.8 40.1.809926.3.579.2. 1998 Unknown [id number] 2.16.8 40.1.003512.3.579.2. 1998 Unknown [id number] 2.16.8 40.1.163769.3.579.2.8 1998 Unknown [id number] 2.16.8 40.1.610638.3.579.2. 1998 Unknown [id number] 2.16.8 40.1.737151.3.579.2. 1998 Unknown [id number] 2.16.8 40.1.351316.3.579.2. 1998 Unknown [id number] 2.16.8 40.1.773139.3.579.2.8 1998 Unknown [id number] 2.16.8 40.1.782609.3.579.2. 1998 Unknown [id number] 2.16.8 40.1.283759.3.579.2.718 Social History Date Type Detail Facility Start: 09-15-2023 Tobacco smoking stat [facility] Ex-smoker [facility] History of tobacco use Current smoker [facility] History of tobacco use Cigarette Smoker [facility] Start: 10-06-2023 Alcohol intake Lifetime non-d stefanie (finding) [facility] Start: 09-15-2023 History of Social function [facility] Start: 09-15-2023 Tobacco use panel [facility] Start: 09-15-2023 Alcohol Comment caffeine: 1-2 cups p er day [facility] Healthcare Start: 2000 Sex Assigned At Not on file [place] [facility] Tobacco smoking stat [facility] Tobacco smoking consumption unknown [facility] Clinical Note 05-28-2024 Note Date & Type Note Facility 05-28-2024 Note Education Materials Orthopedics Muscle Strain A muscle strain, or pulled muscle, happens when a muscle is stretched beyond its normal length. This can tear some muscle fibers and cause pain. Usually, it takes 1?2 weeks to heal from a muscle strain. Full healing normally takes 5?6 weeks. What are the causes? This condition is caused when a sudden force is placed on a muscle and stretches it too far. This can happen with a fall, while lifting, or during sports. What increases the risk? You are more likely to develop a muscle strain if you are an athlete or you do a lot of physical activity. What are the signs or symptoms? ? Pain. ? Tenderness. ? Bruising. ? Swelling. ? Trouble using the muscle. How is this treated? This condition is first treated with AMBROSE therapy. This involves: ? Protecting your muscle from being injured again. ? Resting your injured muscle. ? Icing your injured muscle. ? Putting pressure (compression) on your injured muscle. This may be done with a splint or elastic bandage. ? Raising (elevating) your injured muscle. Your doctor may also recommend medicine for pain. Follow these instructions at home: If you have a splint that can be taken off: ? Wear the splint as told by your doctor. Take it off only as told by your doctor. ? Check the skin around the splint every day. Tell your doctor if you see problems. ? Loosen the splint if your fingers or toes: ? Tingle. ? Become numb. ? Turn cold and blue. ? Keep the splint clean. ? If the splint is not waterproof: ? Do not let it get wet. ? Cover it with a watertight covering when you take a bath or a shower. Managing pain, stiffness, and swelling ? If told, put ice on your injured area. To do this: ? If you have a removable splint, take it off as told by your doctor. ? Put ice in a plastic bag. ? Place a towel between your skin and the bag. ? Leave the ice on for 20 minutes, 2?3 times a day. ? Take off the ice if your skin turns bright red. This is very important. If you cannot feel pain, heat, or cold, you have a greater risk of damage to the area. ? Move your fingers or toes often. ? Raise the injured area above the level of your heart while you are sitting or lying down. ? Wear an elastic bandage as told by your doctor. Make sure it is not too tight. General instructions ? Take hibt-kih-iwjbosl and prescription medicines only as told by your doctor. This may include: ? Medicines for pain and swelling that are taken by mouth or put on the skin. ? Medicines to help relax your muscles. ? Limit your activity. Rest your injured muscle as told by your doctor. Your doctor may say that gentle movements are okay. ? If physical therapy was prescribed, do exercises as told by your doctor. ? Do not put pressure on any part of the splint until it is fully hardened. This may take many hours. ? Do not smoke or use any products that contain nicotine or tobacco. If you need help quitting, ask your doctor. ? Ask your doctor when it is safe to drive if you have a splint. ? Keep all follow-up visits. How is this prevented? Warm up before you exercise. This helps to prevent more muscle strains. Contact a doctor if: ? You have more pain or swelling in the injured area. Get help right away if: ? You have any of these problems in your injured area: ? Numbness. ? Tingling. ? Less strength than normal. Summary ? A muscle strain is an injury that happens when a muscle is stretched beyond normal length. ? This condition is first treated with AMBROSE therapy. This includes protecting, resting, icing, adding pressure, and raising your injury. ? Limit your activity. Rest your injured muscle as told by your doctor. Your doctor may say that gentle movements are okay. ? Warm up before you exercise. This helps to prevent more muscle strains. This information is not intended to replace advice given to you by your health care provider. Make sure you discuss any questions you have with your health care provider. Document Revised: 11/09/2021 Document Reviewed: 11/09/2021 Elsevier Patient Education ? [address]. Sciatica Sciatica is pain, weakness, tingling, or loss of feeling (numbness) along the sciatic nerve. The sciatic nerve starts in the lower back and goes down the back of each leg. Sciatica usually affects one side of the body. Sciatica usually goes away on its own or with treatment. Sometimes, sciatica may come back. What are the causes? This condition happens when the sciatic nerve is pinched or has pressure put on it. This may be caused by: ? A disk in between the bones of the spine bulging out too far (herniated disk). ? Changes in the spinal disks due to aging. ? A condition that affects a muscle in the butt. ? Extra bone growth near the sciatic nerve. ? A break (fracture) of the area between your hip bones (pelvis). ? . (more content not included)... [facility] Clinical Note 05-28-2024 Note Date & Type Note Facility 05-28-2024 Note Patient Education Materials [facility]: [facility] History of Present illness Narrative 04-24-2024 Jessica Mary - 04/24/2024 2:34 PM EDT Note Date & Type Note Facility 04-24-2024 History of Presen t illness Narrative Images from the original note were not included. documented in this encounter [facility] Clinical Note 11-19-2023 Note Date & Type Note Facility 11-19-2023 Note Education Materials Caregiving Sterile Tape Wound Care Some cuts and wounds can be closed using sterile tape, also called skin adhesive strips. You can use skin adhesive strips for shallow (superficial) and simple cuts, wounds, skin tears (lacerations), and some surgical incisions. These strips are used in place of stitches (sutures), or along with sutures, to hold the edges of your wound together and to promote better healing. Unlike sutures, adhesive strips do not require needles or anesthetic medicine for placement. The strips usually fall off on their own as your wound heals. It is important to take proper care of your wound while it heals. Supplies needed: ? Soap and water. ? A clean, dry towel. ? If needed: ? Wound cleanser or saline solution. ? Clean gauze. ? A clean bandage (dressing) or another type of wound dressing may be used to cover or place on your wound. The wound may also be left open to air with no dressing. Follow instructions from your health care provider about what dressing supplies to use. ? Cream or ointment to apply to your wound, if told by your health care provider. How to care for your sterile tape wound Wound care ? Try to keep the area around your wound clean and dry. Do not allow the adhesive strips to get wet for the first 12 hours. ? Do not use any soaps or ointments on the wound for the first 12 hours. ? Ask your health care provider how to clean your wound. This may include: ? Using mild soap and water, a wound cleanser, or saline solution. ? Using a clean, dry towel or clean gauze to pat the wound dry after cleaning it. Do not rub or scrub your wound. ? Do not scratch, rub, or pick at your wound area. ? Do not take baths, swim, or use a hot tub until your health care provider approves. Ask your health care provider if you may take showers. You may only be allowed to take sponge baths. ? Protect your wound from further injury until it is healed. ? Protect your wound from sun and tanning bed exposure while it is healing, and for several weeks after healing. Dressing care ? If a dressing was put on your wound, follow instructions from your health care provider about how often to change your dressing. Make sure you: ? Wash your hands with soap and water for at least 20 seconds before and after you change your dressing. If soap and water are not available, use hand student ministry pastor. ? Change your dressing as told by your health care provider. ? Leave adhesive strips in place. These skin closures may need to stay in place for 2 weeks or longer. If adhesive strip edges start to loosen and curl up, you may trim the loose edges. Do not remove adhesive strips completely unless your health care provider tells you to do that. ? Keep your dressing dry. ? Ask your health care provider when you can leave your wound uncovered. Checking for infection Check your wound every day for signs of infection. Check for: ? Redness, swelling, or pain. ? Fluid or blood. ? New warmth, a rash, or hardness at the wound site. ? Pus or a bad smell. Follow these instructions at home: Medicines ? Take hzpp-lwf-ktrocam and prescription medicines only as told by your health care provider. ? If you were prescribed an antibiotic medicine, take or apply it as told by your health care provider. Do not stop using the antibiotic even if you start to feel better. General instructions ? Do not use any products that contain nicotine or tobacco. These products include cigarettes, chewing tobacco, and vaping devices, such as e-cigarettes. If you need help quitting, ask your health care provider. ? Eat a diet that includes protein, vitamin A, and vitamin C to help the wound heal. ? Drink enough fluid to keep your urine pale yellow. ? Keep all follow-up visits. This is important. Contact a health care provider if: ? Your adhesive strips become soaked with blood or fall off before your wound has healed. The tape will need to be replaced. ? You have a fever or chills. ? You have redness, swelling, or pain around your wound. ? You have fluid or blood coming from your wound. ? You have new warmth around your wound. ? You develop a rash after the strips are applied. ? You have a hardness around your wound. Get help right away if: ? You have any of these signs of severe infection: ? A red streak that goes away from your wound. ? Pus or a bad smell coming from your wound. ? Your wound opens or gets deeper, longer, or wider. Summary ? Some cuts and wounds can be closed using sterile tape, or skin adhesive strips, without the need for sutures. ? The strips usually fall off on their own as your wound is healing. ? It is important to take proper care of your wound at home while it heals and to clean it as told by your health care provider. ? To help with healing, eat foods that are rich in protein, vitamin A, and vitamin C. This informatio (more content not included)... [facility] History of Present illness Narrative 10-06-2023 Rose Latham LPN - 10/06/2023 8:40 AM EST Note Date & Type Note Facility 10-06-2023 History of Presen t illness Narrative Reason for Appointment: Patient ID: Bonnie Astudillo is a 23 y.o. female who presents for Discuss cycles Patient presents today for Consult appointment. Current Medications: has a current medication list which includes the following prescription(s): amoxicillin. Medical History: Active Ambulatory Problems Diagnosis Date Noted No Active Ambulatory Problems Resolved Ambulatory Problems Diagnosis Date Noted No Resolved Ambulatory Problems Past Medical History: Diagnosis Date Ankle fracture, left History of medical problems Family History Problem Relation Name Age of Onset Leukemia Mother as a child Endometriosis Mother Depression Father Hypertension Father Diabetes Maternal Grandmother Social History Tobacco Use Smoking status: Former Types: Cigarettes Smokeless tobacco: Not on file Substance Use Topics Alcohol use: Never Comment: caffeine: 1-2 cups per day Drug use: Not Currently Types: Marijuana Comment: Stopped after she found out she was Past Surgical History: Procedure Laterality Date CHOLECYSTECTOMY 09/16/2020 No Known Allergies Review of Systems: Review of Systems Constitutional: Negative. HENT: Negative. Eyes: Negative. Respiratory: Negative. Cardiovascular: Negative. Gastrointestinal: Negative. Genitourinary: Negative. Musculoskeletal: Negative. Skin: Negative. Neurological: Negative. All other systems reviewed and are negative. Hematological: Negative. Endocrine: Negative. Allergic/Immunologic: Negative. Objective Physical Exam Constitutional: Appearance: Normal appearance. She is well-developed. Cardiovascular: Rate and Rhythm: Normal rate and regular rhythm. Pulmonary: Effort: Pulmonary effort is normal. Breath sounds: Normal breath sounds. Abdominal: General: Bowel sounds are normal. There is no distension. Palpations: Abdomen is soft. Tenderness: There is no abdominal tenderness. There is no guarding or rebound. Musculoskeletal: General: No swelling. Normal range of motion. Right lower leg: No edema. Left lower leg: No edema. Neurological: Mental Status: She is alert and oriented to person, place, and time. Skin: General: Skin is warm and dry. Psychiatric: Mood and Affect: Mood normal. Behavior: Behavior normal. Vitals and nursing note reviewed. Exam conducted with a singing telegram performer present. Vitals: Estimated body mass index is 38.28 kg/m as calculated from the following: Height as of this encounter: 5' 7 . Weight as of this encounter: 244 lb 6.4 oz. BP: 120/72 Patient's last menstrual period was 09/21/2023. Assessment/Plan Encounter Diagnosis Name Primary? Irregular periods/menstrual cycles Patient presents today for new patient appointment to discuss irregular cycles. Patient voiced that she has heavy cycles and requires her to wear 2 pads sometimes. Patient voiced that she also has lots of clots with cycles. Patient voiced this irregularity has been ongoing for a while now. Patient stated that her mother had endometriosis. Patient will have labs drawn, US obtained and will return to clinic in 4 weeks to follow up on PCOS and discuss infertility. Discussed prescribing Metformin for patient to assist with PCOS/insulin resistance and medication was sent to [facility] in [place]. Documented by Rose Latham LPN on behalf of: Jackie Alonso DO documented in this encounter [facility] Clinical Note 09-30-2023 Note Date & Type Note Facility 09-30-2023 Note Patient Education Ma terials Follows: Hypertension, Adult High blood pressure (hypertension) is when the force of blood pumping through the arteries is too strong. The arteries are the blood vessels that carry blood from the heart throughout the body. Hypertension forces the heart to work harder to pump blood and may cause arteries to become narrow or stiff. Untreated or uncontrolled hypertension can lead to a heart attack, heart failure, a stroke, kidney disease, and other problems. A blood pressure reading consists of a higher number over a lower number. Ideally, your blood pressure should be below 120/80. The first ( top ) number is called the systolic pressure. It is a measure of the pressure in your arteries as your heart beats. The second ( bottom ) number is called the diastolic pressure. It is a measure of the pressure in your arteries as the heart relaxes. What are the causes? The exact cause of this condition is not known. There are some conditions that result in high blood pressure. What increases the risk? Certain factors may make you more likely to develop high blood pressure. Some of these risk factors are under your control, including: ? Smoking. ? Not getting enough exercise or physical activity. ? Being overweight. ? Having too much fat, sugar, calories, or salt (sodium) in your diet. ? Drinking too much alcohol. Other risk factors include: ? Having a personal history of heart disease, diabetes, high cholesterol, or kidney disease. ? Stress. ? Having a family history of high blood pressure and high cholesterol. ? Having obstructive sleep apnea. ? Age. The risk increases with age. What are the signs or symptoms? High blood pressure may not cause symptoms. Very high blood pressure (hypertensive crisis) may cause: ? Headache. ? Fast or irregular heartbeats (palpitations). ? Shortness of breath. ? Nosebleed. ? Nausea and vomiting. ? Vision changes. ? Severe chest pain, dizziness, and seizures. How is this diagnosed? This condition is diagnosed by measuring your blood pressure while you are seated, with your arm resting on a flat surface, your legs uncrossed, and your feet flat on the floor. The cuff of the blood pressure monitor will be placed directly against the skin of your upper arm at the level of your heart. Blood pressure should be measured at least twice using the same arm. Certain conditions can cause a difference in blood pressure between your right and left arms. If you have a high blood pressure reading during one visit or you have normal blood pressure with other risk factors, you may be asked to: ? Return on a different day to have your blood pressure checked again. ? Monitor your blood pressure at home for 1 week or longer. If you are diagnosed with hypertension, you may have other blood or imaging tests to help your health care provider understand your overall risk for other conditions. How is this treated? This condition is treated by making healthy lifestyle changes, such as eating healthy foods, exercising more, and reducing your alcohol intake. You may be referred for counseling on a healthy diet and physical activity. Your health care provider may prescribe medicine if lifestyle changes are not enough to get your blood pressure under control and if: ? Your systolic blood pressure is above 130. ? Your diastolic blood pressure is above 80. Your personal target blood pressure may vary depending on your medical conditions, your age, and other factors. Follow these instructions at home: Eating and drinking ? Eat a diet that is high in fiber and potassium, and low in sodium, added sugar, and fat. An example of this eating plan is called the DASH diet. DASH stands for Dietary Approaches to Stop Hypertension. To eat this way: ? Eat plenty of fresh fruits and vegetables. Try to fill one half of your plate at each meal with fruits and vegetables. ? Eat whole grains, such as whole-wheat pasta, brown rice, or whole-grain bread. Fill about one fourth of your plate with whole grains. ? Eat or drink low-fat dairy products, such as skim milk or low-fat yogurt. ? Avoid fatty cuts of meat, processed or cured meats, and poultry with skin. Fill about one fourth of your plate with lean proteins, such as fish, chicken without skin, beans, eggs, or tofu. ? Avoid pre-made and processed foods. These tend to be higher in sodium, added sugar, and fat. ? Reduce your daily sodium intake. Many people with hypertension should eat less than 1,500 mg of sodium a day. ? Do not drink alcohol if: ? Your health care provider tells you not to drink. ? You are , may be , or are planning to become . ? If you drink alcohol: ? Limit how much you have to: ? 0?1 drink a day for women. ? 0?2 drinks a day for men. ? Know how much alcohol is in your drink. In the [place] one drink equals one 12 oz bottle of beer (355 mL), one 5 oz glass of wine (148 mL (more content not included)... [facility] Evaluation note Note Date & Type Note Facility Evaluation note Diagnosis Irregular periods/menstrual cycles PCOS (polycystic ovarian syndrome) Polycystic ovaries Insulin resistance Other abnormal glucose documented in this encounter [facility] Evaluation note Note Date & Type Note Facility Evaluation note Diagnosis Abnormal tooth eruption- Primary Disturbances in tooth eruption Impacted third molar tooth Disturbances in tooth eruption documented in this encounter [facility] Summary Purpose Family History No Family History Records FoundNo Family History Records FoundNo Family History Records FoundNo Family History Records Found Advance Directives No Advanced Directives Records FoundNo Advanced Directives Records FoundNo Advanced Directives Records FoundNo Advanced Directives Records Found Reason for Referral Specialty Diagnoses / Procedures Referred By Drake sharma Referred To Contact Oral Surgery Diagnoses Abnormal tooth eruption Impacted third molar tooth Kenya Richter, DDS [address] [place] [address] Referral ID Status Reason Start Date Expiration Date V isits Requested Visits Authorized [id number] Pending Review 04/24/2024 04/24/2025 1 1 Scheduling Instructions If your in-clinic procedure was not scheduled for you today, please call (option 2) during normal business hours (8 am to 5 pm) on to schedule. Please allow 4 weeks time between the day of your consult to scheduling your procedure to allow the system time to process the order and receive insurance authorization. If your insurance denies all or part of your procedure, you will be contacted with [id number] costs or next steps. All self-pay payments will need to be collected in full prior to having the procedure. Please arrive 30 minutes prior to your procedure. If you are having a local anesthesia procedure: No diet restrictions the day before or day of the procedure. You may take your normal medications as instructed. No covid testing needed. You may drive yourself home afterward. If you are prescribed anxiety reducing medications for the procedure: You also MUST have a rail car driver/escort >18yrs old present to take you home after. If your provider has proposed an IV sedation procedure: Please refer to the instructions given to you at your consult appointment. You will receive a call from a nurse roughly 1 week prior to your procedure to go over any/all instructions. Question Answer What is the procedure for? Dental Please specify: Extractions Please specify: Routine Extraction, Partial Bony Impacted Routine Extraction--please list tooth number(s): #1, #16 Partial Bony Impacted--please list tooth number(s): #17, #32 Is Sedation Needed? Local Anesthesia Procedure Length: 60 Which area is this procedure for? Clinic Additional Source Comments INFORMATION SOURCE (unrecogn ized section and content) DATE CREATED AUTHOR 01/08/2022 [facility] DATE CREATED AUTHOR AUTHOR'S ORGANIZ ATION 05/03/2024 [facility] DATE CREATED AUTHOR AUTHOR'S ORGANIZ ATION 05/09/2024 [facility] EPIC DATE CREATED AUTHOR AUTHOR'S ORGANIZ ATION 06/06/2024 [facility] Reason for Visit (unrecogniz ed section and content) Reason Comments Discuss cycles Care Teams (unrecognized sec tion and content) [employer] Person Relationship Specialty Start Date End Date Anthony Gomez MD [address] [place] [address] PCP - General Pediatrics 10/06/23 FOR RECORDS PERTAINING TO PATIENTS WHO ARE OR HAVE BEEN ENROLLED IN A CHEMICAL DEPENDENCY/SUBSTANCEABUSE PROGRAM, SOME INFORMATION MAY BE OMITTED. This clinical summary was aggregated from multiple sources. Caution should be exercised in using it in the provision of clinical care. This summary normalizes information from multiple sources, and as a consequence, information in this document may materially change the coding, format and clinical context of patient data. In addition, data may be omitted in some cases. CLINICAL DECISIONS SHOULD BE BASED ON THE PRIMARY CLINICAL RECORDS. [facility] [employer] [facility]. provides no warranty or guarantee of the accuracy or completeness of information in this document.
== END 2024-06-07 12:36 | disposition home or self-care (01) ==
LOC: NOMS 12:36
PROVIDERS: PCP Family Medicine; Visit Provider Obstetrics & Gynecology
DX: Z34.91 Encounter for supervision of normal pregnancy, unspecified, first trimester (principal); Z3A.08 8 weeks gestation of pregnancy; N92.6 Irregular menstruation, unspecified
CPT/HCPCS: 76817

== ENCOUNTER 2024-07-04 11:16 | Outpatient (OUT) | payer MEDICAID, SELFPAY ==
[2024-07-04 11:48] LABS: Basophils Percent Auto 0.3 % (0.2-2.0); Eosinophils Absolute Auto 0.1 10^3/uL (0.0-0.7); Eosinophils Percent Auto 1.2 % (0.9-7.0); Hematocrit 40.3 % (36.0-48.0); Hemoglobin 13.7 g/dL (12.0-16.0); Immature Granulocytes Abs Auto 0.06 10^3/uL (0.00-0.03); Immature Granulocytes Pct Auto 0.5 % (0.0-0.5); Lymphocytes Absolute Auto 2.5 10^3/uL (1.2-3.8); Lymphocytes Percent Auto 21.2 % (20.5-60.0); Mean Corpuscular Volume 85.2 fL (81.0-99.0); Mean Platelet Volume 9.5 fL (9.5-13.5); Monocytes Absolute Auto 0.4 10^3/uL (0.3-0.8); Monocytes Percent Auto 3.3 % (1.7-12.0); Neutrophils Absolute Auto 8.7 10^3/uL (1.4-6.5); Neutrophils Percent Auto 73.5 % (43.0-75.0); Platelet Count 378 10^3/uL (150-450); Red Blood Count 4.73 10^6/uL (4.20-5.40); Red Cell Distribution Width 12.9 % (11.0-15.0); White Blood Count 11.8 10^3/uL (4.0-11.0)
[2024-07-04 12:02] LABS: Amphetamine Screen Urine NEGATIVE (NEGATIVE); Barbiturates Screen Urine NEGATIVE (NEGATIVE); Benzodiazepines Screen Urine NEGATIVE (NEGATIVE); Buprenorphine Screen Urine NEGATIVE (NEGATIVE); Cannabinoid Screen Urine POSITIVE (NEGATIVE); Cocaine Screen Urine NEGATIVE (NEGATIVE); Methadone Screen Urine NEGATIVE (NEGATIVE); Methamphetamines Screen Urine NEGATIVE (NEGATIVE); Opiate Screen Urine NEGATIVE (NEGATIVE); Oxycodone Screen Urine NEGATIVE (NEGATIVE); Phencyclidine Screen Urine NEGATIVE (NEGATIVE); Tricyclic Antidepressant Urine NEGATIVE (NEGATIVE)
[2024-07-04 12:37] LABS: Estimated Average Glucose 103 mg/dL; Glycohemoglobin A1C 5.2 % (4.5-6.2)
[2024-07-04 12:52] LABS: BOX Test Reference Lab UNITY; BOX Test Sent Out UNITY BOX
[2024-07-05 06:09] LABS: HBsAg Screen Negative (Negative); HCV Ab Non Reactive (Non Reactive); HIV Ab/p24 Ag Screen Non Reactive (Non Reactive)
[2024-07-05 13:09] LABS: Rapid Plasma Reagin, Quant Non Reactive titer (NonRea<1:1)
[2024-07-10 10:10] LABS: Cannabinoid Positive (.); Carboxy THC Conf, MS, UR 183 ng/mL (Cutoff=10)
== END 2024-07-04 11:17 | disposition home or self-care (01) ==
LOC: LAB 11:20
PROVIDERS: PCP Family Medicine; Visit Provider Obstetrics & Gynecology
DX: Z34.01 Encounter for supervision of normal first pregnancy, first trimester (principal); Z36.0 Encounter for antenatal screening for chromosomal anomalies; N92.6 Irregular menstruation, unspecified
CPT/HCPCS: 36415; 80307; 80349; 83036; 85025; 86592; 86762; 86803; 86850; 86900; 86901; 87086; 87340; 87389

== ENCOUNTER 2024-07-31 15:15 | Outpatient (OUT) | payer MEDICAID, SELFPAY ==
[2024-07-31 16:47] LABS: Glucose 1 Hour 132 mg/dL (<130)
== END 2024-07-31 15:16 | disposition home or self-care (01) ==
LOC: LAB 15:17
PROVIDERS: PCP Family Medicine; Visit Provider Obstetrics & Gynecology
DX: Z13.1 Encounter for screening for diabetes mellitus (principal)
CPT/HCPCS: 36415; 82950

== ENCOUNTER 2024-08-08 19:29 | Outpatient (REF) | payer MEDICAID, SELFPAY ==
--- OUTSIDE RECORDS SUMMARY | 2024-08-08 19:34 | XMS_ITS | CCD ---
Author Organization [facility] CliniSyla Care Team Providers Care Hand Carver Name Role Phone Anthony Gomez MD Primary Care Provider Unavailable Primary Care Provider UnavailKENYA Gonzales Attending Unavailable PROVIDER, UNKNOWN Admitting Unavailable CELESTE, JACKIE Attending Unavailable CELESTE, JACKIE Attending Unavailable CELESTE, JACIKE Attending Unavailable CELESTE, JACKIE Attending Unavailable Evonne Cheung Admitting Unavailable Evonne Cheung Attending Unavailable Anthony Gomez Primary Care Unavailable Anthony Gomez Primary Care Unavailable Tellez PAC, Spenser N Admitting Unavailable Tellez PAC, Spenser N Attending Unavailable Anthony Gomez Primary Care Unavailable Tellez PAC, Spenser N Admitting Unavailable Tellez PAC, Spenser Gallegos Attending Unavailable Anthony Gomez Primary Care Unavailable CELESTE, JACKIE R Attending Unavailable CELESTE, JACKIE R Admitting Unavailable Anthony Gomez Primary Care Unavailable Anthony Gomez Primary Care Unavailable CELESTE, JACKIE R Admitting Unavailable CELESTE, JACKIE R Attending Unavailable Anthony Gomez Attending Unavailable Anthony Gomez Primary Care Unavailable Anthony Gomez Primary Care Unavailable CELESTE, JACKIE R Admitting Unavailable CELESTE, JACKIE R Attending Unavailable CELESTE, JACKIE R Attending Unavailable CELESTE, JACKIE R Admitting Unavailable Anthony Gomez Primary Care Unavailable CELESTE, JACKIE R Attending Unavailable CELESTE, JACKIE R Admitting Unavailable Anthony Gomez Primary Care Unavailable Anthony Gomez Primary Care Unavailable Noni, Sreedhar K Admitting Unavailable Le, Sreedhar K Attending Unavailable Allergies Allergy Classification Reported Allergen(s) Allergy Type Date of Onset Reaction(s) Facility (1 source) No Known Medication Allergies; Translations: [No Known Medication Allergies] Propensity to adverse reactions to drug (disorder) [facility] Repository Medications Current Medications Medication Drug Class(es) [...] hydrochloride 500 mg extended release oral tablet (11 sources) Biguanide Start: 10-06-2023 End: 11-05-2023 take 1 tablet by mouth every twenty-four hours at mealtime metFORMIN XR (Glucophage-XR) 500 MG 24 hr tablet Indications: Irregular periods/menstrual cycles , Insulin resistance Take 1 tablet (500 mg) by mouth in the evening. Take with meals Do not crush, chew, or split. 30 tablet 11 10/06/2023 Active ondansetron 4 mg disintegrating oral tablet (10 sources) Serotonin-3 Receptor Antagonist Start: 06-07-2024 End: 08-09-2024 take 1 tablet by mouth every six hours for nausea ondansetron ODT (Zofran-ODT) 4 MG disintegrating tablet Indications: Nausea and vomiting in Take 1 tablet (4 mg) by mouth every 6 (six) hours if needed for nausea or vomiting 30 tablet 2 07/10/2024 08/09/2024 Active Completed/Discontinued Medications Medication Drug Class(es) Dates Sig (Normalized) Sig (Original) nitrofurantoin, macrocrystals 25 mg / nitrofurantoin, monohydrate 75 mg oral capsule (3 sources) Nitrofuran Antibacterial Start: 07-02-2024 End: 07-10-2024 take 1 capsule by mouth in the morning nitrofurantoin, macrocrystal-monoh ydrate, (Macrobid) 100 MG capsule Indications: UTI symptoms Take 1 capsule (100 mg) by mouth in the morning and 1 capsule (100 mg) before bedtime. Do all this for 7 days. 14 capsule 07/02/2024 07/10/2024 Discontinued (Therapy completed) Problems Problem Classification Problem Date Documented Date Episodic/Chronic Administrative/social admission (13 sources) Patient encounter status; Translations: [Person consulting for explanation of examination or test findings] Onset: 11-03-2023 11-03-2023 Episodic Diabetes mellitus without complication (2 sources) Abnormal glucose tolerance test; Translations: [Other abnormal glucose] 08-08-2024 Episodic Disorders of teeth and jaw (4 sources) Tooth eruption disorder; Translations: [Disturbances in tooth eruption] Onset: 04-24-2024 04-24-2024 Episodic Immunizations and screening for infectious disease (2 sources) Exposure to sexually transmissible disorder; Translations: [Contact with and (suspected) exposure to infections with a predominantly sexual mode of transmission] 08-08-2024 Episodic Menstrual disorders (12 sources) Irregular periods; Translations: [Irregular menstruation, unspecified] Onset: 11-03-2023 10-04-2023 Chronic Other complications of (3 sources) Vomiting of , unspecified; Translations: [Unspecified vomiting of , unspecified as to episode of care or not applicable] 06-07-2024 Episodic Other endocrine disorders (11 sources) Polycystic ovary syndrome; Translations: [Polycystic ovarian syndrome] Onset: 11-28-2023 10-06-2023 Chronic Other female genital disorders (2 sources) Vaginal discharge; Translations: [Other specified noninflammatory disorders of vagina] 08-08-2024 Episodic Other nutritional; endocrine; and metabolic disorders (11 sources) Insulin resistance; Translations: [Insulin resistance] Onset: 11-03-2023 10-06-2023 Chronic Other and delivery including normal (6 sources) ; Translations: [Encounter for supervision of normal , unspecified, unspecified trimester] 06-07-2024 Episodic Residual codes; unclassified (1 source) Gestation period, 8 weeks; Translations: [8 weeks gestation of ] 06-07-2024 Episodic Residual codes; unclassified (2 sources) Gestation period, 13 weeks; Translations: [13 weeks gestation of ] 07-10-2024 Episodic Residual codes; unclassified (2 sources) Gestation period, 17 weeks; Translations: [17 weeks gestation of ] 08-08-2024 Episodic Results Test Name Value Interpretation Reference Range Facility Urinalysis macro (dipstick) panel (U)on 08-08-2024 Bilirubin, UA Negative Negative - 4(70) +++ mg/dL [facility] Blood, UA Negative Negative - 50 Osvaldo/mcL [facility] Clarity, UA Clear [facility] Color, UA Yellow [facility] Glucose, UA Negative Negative - 1999(110) ++++ mg/dL [facility] Interpretation and review of laboratory results Normal [facility] Ketones, UA Negative Negative - 160(16) ++++ mg/dL [facility] Leukocytes, UA Negative Negative - 500+++ Edison/mcL [facility] Nitrite, UA Negative Negative - Positive [facility] pH, UA 5.5 5 - 9 [facility] Protein, UA Negative Negative - 1999(20) ++++ mg/dL [facility] Spec Grav, UA 1.02 1 - 1.03 [facility] Urobilinogen, UA 1.0 0.2 - 12 mg/dL [facility] GLUCOSE 1 HOURon 07-31-2024 Glucose [Mass/Vol] 132 mg/dL High NINF - 13 0 mg/dL [facility] Interpretation and review of laboratory results Abnormal [facility] Coding Summaryon 07-16-2024 Coding Summary HTMLBase 64 TjtxkjdfYVq4hEo+PGhlYW Q+YL2UMVBsZ41xxTTvjN0n C9OZJWtJKkgfTRZQFXvTWl TyfvLsZI1kmYFaGCVj IC8+EL1pBGEiTrjfyCFsu7 S9sYL0B04dpa5hCHhxlHR2 HOCaTmVdillno9hoySc2JF cuNmluOyBt DFIdoA06PSP4dX24Ia00kF PjxCAfj5ihyRv3YiDlPQSe YIY1cHcnAEbgv3DwHDJzZ2 4ukXBmv0D8 PLHtiCoyaSMqRaBssIM1pO 6tWVgkzuoxi3scttaaYov5 jz22tSNtr5M0eAT8F6Ygks G5DZQfrCAw ApyltTHLqR0vqrohh9ylnj qiMcKjPNFiHZu4DHh6HUVd eMjlNkQtEC92LLU0CADeui PaW1IsXYAr xYvoZyU4q2D5Yj8FI2SVYz mtA7BXSHKGITmseBQ+PC90 bb78C2TjYdqgWdh0HNBeGI L4aBE0sI1a IOMhCMind2E9oPE9G9Unwu Ngdp6wk2deHLWqTYunT75f sAXkn1A7JLUxbFS2PUCoxX igSmPedS71 Oyc+PRGloWwlu6DsLhkuf0 tfn9mnnRc4XlpeODQpppIg pTrkNNN2m1NeSp1hGOXnrP C6oMA5dN7c XwFxXgH8HJyoL308FzCoaZ RxQlnaL42rU5ExmWA+PHRy Qus9XRLieXqfGY7zC5QxQD RpbmctbGVm kRqsZE9tXEUcdsavAEDgxE 7oYQIeA1c9NqDfLsO2OGdi N2NkHDIgvbdbYb75tV6mXs MsUzL1UXzb S5XmotL1RCVmyGStIUbiIL S6W25tm2S0PLHeVWVgDUV1 qWK5kJ5gtFbtjblfaYAxaE sgdmVydGlj BInhKBdzP064JWJkfOwyNj NvZGluZyBEYXRlOiAgMTEv MTEvMjAyNDwvdGQ+PHRkIH U9wAznKEAy iZSaMEtyLu2dxNjdhGvoHJ 7dZFTkclehDEQqbQ6dGNEb xHAxaTvbVT4zJYKsexykk6 24VoAwOZN2 VGMvtDIyJ7PokQ2dLrIiNO NdNBPmB0WolACqGMqtP781 QCisCbL7XTUubbSeK4IsHI FsaWduOiB0 h4J2Xb9Lj0YrofqqW6BrsL BeUfBaOceiGPg2F8WvLobx dHI+OO79CNCpSM36BAu9ZO F2mLztPRsl AUPfR2RekH2qGxGlWWCoPP RkOyc+PHRhYmxlIHdpZHRo BQsxGCPaNyEpjFwqNF5iEv 9yZGVyLWNv wPsyeGIpIaTyi2hvFLYsKH ydXC2opWldO4BzmSO5YLYy o9g2Sl40A23tM2BhwEZ+PG DavOU5mKT9 fM1xCvZrJuY5IAwvB464Wj IiwNMjOlhau4ued5bsoFi5 GvL3BCWakwYbcMriXCO2e1 XwMk13S06r IHdpZHRoPSIxNSUiIHZhbG qpce0heS3yBv8+PGNvbCB3 uAP4vZ7gZfAgUkR1DBfhA3 49InRvcCIv Dwjno3fph7avhEw8NjGzUB JxrlXkwCwvQZJ8s8WcNz58 S9FwcQpns1NuRyt5kk44nC Sqz0I7qYD4 M5YpNAFsqfkrxAKlrYmxLU 7aIANgrsbgZLBeaE3sYVRe S5p1FpWzMoZ2HIozJ3Yaln B2SKZkvGRb FBYgaDBEoA2ouuxls6xgjb uoWlEuWUKgMEg4WQr6KQYa pRxcNiVvKHM3LbU3SOS9cH IcgK4krUir lvrjjO1oXfp+AEE2fIIdiY IBUO9zVdbvpWQ+PHRkIHN0 fHmzQBioDQIkoD5kICCoZ2 s0AoOnJgW2 BQmpS0SnalO1BORgyDShBJ WzdOSZpV0cfxqxv9jyxpex JaQrRVZtCIu1GMc7KYYdlB duOiBsZWZ0 DyH7DEZ8pDXvuY2okUrwhu hhoN7tMbj+QmlydGggRGF0 LBo6Y6AoCgy9WTDrrLdnOV 0ncGFkZGlu Xf5hyHeyjMfjZP4xHUHhtb lpu716AhKjm4gzANQqlZRq QZfvNVE8E41lp4R5YVGxEJ NrJAB1lMC3 iE2ynUgxrgelaTNnvJrxzd LswVvoLYtdBNltN451IQGf wBwyPzCpMAt4O7HdUjx3PN AygRbeYR1o gMHnXYtvKn6xtAoggRzmFU 2xLAVxitmaz750TbZgu4el NCDruTUhZIqtTUW2M19ch4 G7JJUqMNGq LNJ9zMT2bI4zlKyykpfvxI VmdDsgdmVydGljYWwtYWxp M839NPEyyLvtMbTvgSf6D0 LlDug6DBNq mWnlEY5bwLGfXQnhFk3ouJ ybrSzyUM5lFNDjiqzkp326 RrVyy0njBNQjyNLhBDxoEG L6N42iy5R5 GLMzJUDuLRC9nBI7fC5mpY lnbjogbGVmdDsgdmVydGlj CYxwCPnzS297CEQtfWfwMt BhdGllbnQg DIdhDOm0Z5MkZkpfaFS+PC 43SPQsUT22mLDfcKQtw7fc pSy5CwSdITHeCNB9lZzmCJ gve4LtJHJz G50ivKDkn3W9MVSfdSpfdH QaQmBvkRR9oC6ySKjbwtno t9vhakfmJdjkm8ivic48jF 46C65tHOgo ZHRoPSIzMCUiIHZhbGlnbj 8kuE5bCf2+IHSfaNE9jBR0 bL0zTOFrNlF8KBdyA350Ax RvcCIvPjxj l8rtp0umcKi0AeH2GCOosl JmhZykZCB5n4JwYx21Y22l IHdpZHRoPSIyMCUiIHZhbG hvwq3lwG1k Ii8+JRLjeKT4qLE8vP5eNt RjWfT4XCmaT710RkImmDWn WwfnU53gE0IvbBH+PHRyPj p9FFQxxYas DN9rtBWmHHghVd9vHJH1Xt WqWmWuHYscZ3DqWBBqvyip jlsrjAL7HMHiXNKtzM40Jr 9udDogMTBw tEGTpK8ghcgtn5rziwgvMo BmLFXnEKr4OGu7GVFfkAuk RuNbLOA0QnL5KXZ5rXRzhF 1hbGlnbjog xG2kH4TgFQCdbqlzJt81jB 9wSwAkMyJ3BDkgRkj+Q1JB S3FIJpOjNNVCFCPUJhYhAG lDSEVMTEU8 D7HoVab8NXBdbAvzOR5rkN MmGYrpVa7xfCmqxNowTF2w PEOzngaaUKGxpM7aPPLgwR ZzwDtwDF9v NJSafrwux425DrSoTFG7RX BddVCxU3MybQ8bAvEsTVTc DQRvM8ArcJLoECfaA738VT hdJxQ3MVGp kqPwX3KdOUGrvWdqPdA5u8 X9Lk9dTn7tGJ9gPOu2IS88 FV15iHYva1B1fTF4R6JbLJ Rpbmctcmln aVD5LYSaPLAbzG34hWDqDE rvUy6oq6X9w460BAUrKXKh nY19Sm9ylJpfWINveWZVrJ 3jfrfvy6ze nmerPzNtVZOcPWi0JTd1HG RxnEpyUhDdNOM9TrG8RHE5 uBJpqH2jgGezjcsxxU5kQj c+MjYgWWVh elU9S4MvKzm2BKHcfMrwUG 7ntRWzQUveXf3sfVoueWxm XV7xVWIvhainIWQtvP1eDF JvdHRvbTog DC6aVQBtpkdld520FlWfOR E4SKYniYUmI1FqqN9aMmLa PVAwRFQrT3FlwSOuTJavT2 73UNbxJnP8 YRDajbOmD6GrAKQoaBfpYj Y5h5Y0Wu6QBG9RDUW4Q8Yo Blk7ELDhsRegFX7zoRNpGQ qiLe5wgKmc eSrvSX5qHCDjpljtULTdqG 3gZTDmcBOxwCpcYB3dGISo hbqfu597LeBuLSY4LVWgzK CoM9FplD5o DaXjPDLaOZDlY3RhzBGgIR usD707KEiySoG9HFCzrrTq Y8GuLSMwnRbpOdH2f2T5Bs 5PUDwvdGQ+ WQ57rt50B6IbAsfiSoo4JZ AlVNJ3wZC9zU7sDCFtSCpe s6N0aBM6X6SamdAvur0vo8 xsYXBzZTog O40ffBJhn0I4XMQrnMG2HR OhzKvdBrGdjB96Gqj+PGNv vTegu8RrFxdqn3gac2atdF e5MdRcZDJh gsChjTfgQJQ1p6KeKm74T4 9sIHdpZHRoPSIzMCUiIHZh pWxpwj7syY6oCy0+PGNvbC T1eTN9gB5j AeMgBbB5UGabC392MbCzqR YgAyjdx6roz3ygnEg3VuIr QHFmdrJzuKqqCJR1s1NdGg 18E4GgcJeu u4AhEwg5jj69zMXte2X1vP V8K0ArPYZliylasQUtiXma JU7lKFWzvveqCWDdwT4gPB VtW3a9RsKn PvU6RUqiG5UckmY9ZPTudY OsINWkbEUDlY6wezdfb6qm kihySuHiLQEhDGc2WJp6DY FsaWduOiBs KCE8IrP2WIE8qPFpcY5jmH gfaowxvJ2bAew+QHn5x7yq iBJpWT9rtSN8BW17RH29xI Vyt9K1kWY8 U5ZpWAZnfuxykegauDC1QW BcJDZpoW01Yu4dwTrlZw7d NLIiVWH5HWUzoTGuJ9NbzV 9yOiAjMDAw KOTqO8FelGLjAExiI228RQ lySaF5MFLzzmAtS7AjGYFo wNbhFlX2k4S1Tn8HZQ30ZT 75NX10sSGd h7Q5gMP5Q7KeESFptgqoqp ldmEX8OINaDHXthG30Is2h fVifXr4mHLPpJJJ6OHKydX ImM9OurL4h AfHqYIXmQOQgH8YedJHhMG dmL451VWsoTeG1AXYxomQs P0ScQIEbsHkbUjO9c2K4Ca 0ULc57GG30 UI30jOAxj2H5lBK4K5NgJE MfgypftxqhzFJ3XOZnHHHs uA56Hm8frFsjZd8nZXRqNE L8BZBceMOd P0StrD5qNuPiCKFmQPOwZ2 NfaCIbSArrF481CSriHzD8 USVapcKrR7DxFGYesAdmTa Q7f3A8Kz6O GDjttec0R1FsHahhxPD+PC 19OFLtXB49cOJulKCua9wp pZe5SsVhNWFhCWT9iFzkOT nwl2DzPDZu Y29 (more content not included)... Normal [facility] Urinalysis macro (dipstick) panel (U)on 07-10-2024 Bilirubin, UA Negative Negative - (70) +++ mg/dL [facility] Blood, UA Negative Negative - 50 Osvaldo/mcL [facility] Clarity, UA Clear [facility] Color, UA Yellow [facility] Glucose, UA Negative Negative - 1999(110) ++++ mg/dL [facility] Interpretation and review of laboratory results Abnormal [facility] Ketones, UA Negative Negative - 160(16) ++++ mg/dL [facility] Leukocytes, UA Positive Negative - 500+++ Edison/mcL [facility] Comment on above: small Nitrite, UA Negative Negative - Positive [facility] pH, UA 7 5 - 9 [facility] Protein, UA Negative Negative - 1999(20) ++++ mg/dL [facility] Spec Grav, UA 1.025 1 - 1.03 [facility] Urobilinogen, UA 1.0 0.2 - 12 mg/dL [facility] ED Clinical Summaryon 2023 ED Clinical Summary [facility] ? Urgent Care [address] [place] [id number] Clinical Summary PERSON INFORMATION Name: BONNIE ASTUDILLO Age: 24 Years Sex: FEMALE : 2000 MRN: Acct#: Visit Reason: Vaginal discharge; VAGINAL ITCHING/DISCHARGE Arrival: 07/05/2024 10:15:34 Discharge: 07/05/2024 10:59:00 LOS: 000 00:44 Check In: 07/05/2024 10:15:34 Checkout: 07/05/2024 10:59:00 Address: [address] [place] [address] PCP: Anthony Gomez MD PROVIDER INFORMATION Provider Role Assigned Unassigned Rakesh Sawyer PA-C ED PA 07/05/2024 10:27:38 Alma Cosme ED Nurse 07/05/2024 10:32:16 VITALS INFORMATION Vital Sign Triage Latest Temperature Tympanic Temperature Temporal Artery Pulse Rate O2 Sat Respiratory Rate Blood Pressure /60 mmHg /60 mmHg MEDICAL INFORMATION Medications Given: Allergy Information: No Known Medication Allergies PHYSICIAN DOCUMENTATION DISCHARGE INFORMATION: Discharge Disposition: Home Discharge Location: Home PATIENT EDUCATION INFORMATION Instructions: Vaginitis, Hqoa-if-Imwd Follow-Up: With: Address: When: Anthony Gomez [address] [place] [address] Business (1) Within 5 to 7 days With: Address: When: JACKIE ALONSO [address] [phone] Business (1) Within 1 to 2 days DIAGNOSIS: Vaginitis Patient Understands: Yes - Patient/family/caregiv er verbalizes understanding of instructions given Comment: Normal [facility] ED Patient Summaryon 024 ED Patient Summary [facility] ? Urgent Care [address] [place] [id number] PATIENT DISCHARGE INSTRUCTIONS Patient Information Name: BONNIE ASTUDILLO Age: 24 Years Date of : 2000 [facility]: [id number] Reason For Visit: Vaginal discharge; VAGINAL ITCHING/DISCHARGE Arrival Time: 07/05/2024 10:15:34 Primary Care Physician: Anthony Gomez MD Attending Physician: Spenser Fang Comment: Patient Education With: Address: When: Anthony Gomez [address] [place] [id number] Business (1) Within 5 to 7 days With: Address: When: JACKIE ALONSO [address] [place] [address] Business (1) Within 1 to 2 days Vaginitis Vaginitis is irritation and swelling of the vagina. Treatment will depend on the cause. What are the causes? It can be caused by: ? Bacteria. ? Yeast. ? A parasite. ? A virus. ? Low hormone levels. ? Bubble baths, scented tampons, and feminine sprays. Other things can change the balance of the yeast and bacteria that live in the vagina. These include: ? Antibiotic medicines. ? Not being clean enough. ? Some control methods. ? Sex. ? Infection. ? Diabetes. ? A weakened body defense system (immune system). What increases the risk? ? Smoking or being around someone who smokes. ? Using washes (douches), scented tampons, or scented pads. ? Wearing tight pants or thong underwear. ? Using control pills or an IUD. ? Having sex without a condom or having a lot of partners. ? Having an STI. ? Using a certain product to kill sperm (nonoxynol-9). ? Eating foods that are high in sugar. ? Having diabetes. ? Having low levels of a female hormone. ? Having a weakened body defense system. ? Being or . What are the signs or symptoms? ? Fluid coming from the vagina that is not normal. ? A bad smell. ? Itching, pain, or swelling. ? Pain with sex. ? Pain or burning when you pee (urinate). Sometimes there are no symptoms. How is this treated? Treatment may include: ? Antibiotic creams or pills. ? Antifungal medicines. ? Medicines to ease symptoms if you have a virus. Your sex partner should also be treated. ? Estrogen medicines. ? Avoiding scented soaps, sprays, or douches. ? Stopping use of products that caused irritation and then using a cream to treat symptoms. Follow these instructions at home: Lifestyle ? Keep the area around your vagina clean and dry. ? Avoid using soap. ? Rinse the area with water. ? Until your doctor says it is okay: ? Do not use washes for the vagina. ? Do not use tampons. ? Do not have sex. ? Wipe from front to back after going to the bathroom. ? When your doctor says it is okay, practice safe sex and use condoms. General instructions ? Take lvhy-bvr-hocxyzh and prescription medicines only as told by your doctor. ? If you were prescribed an antibiotic medicine, take or use it as told by your doctor. Do not stop taking or using it even if you start to feel better. ? Keep all follow-up visits. How is this prevented? ? Do not use things that can irritate the vagina, such as fabric softeners. Avoid these products if they are scented: ? Sprays. ? Detergents. ? Tampons. ? Products for cleaning the vagina. ? Soaps or bubble baths. ? Let air reach your vagina. To do this: ? Wear cotton underwear. ? Do not wear: ? Underwear while you sleep. ? Tight pants. ? Thong underwear. ? Underwear or nylons without a cotton panel. ? Take off any wet clothing, such as bathing suits, as soon as you can. ? Practice safe sex and use condoms. Contact a doctor if: ? You have pain in your belly or in the area between your hips. ? You have a fever or chills. ? Your symptoms last for more than 2?3 days. Get help right away if: ? You have a fever and your symptoms get worse all of a sudden. Summary ? Vaginitis is irritation and swelling of the vagina. ? Treatment will depend on the cause of the condition. ? Do not use washes or tampons or have sex until your doctor says it is okay. This information is not intended to replace advice given to you by your health care provider. Make sure you discuss any questions you have with your health care provider. Document Revised: 02/19/2021 Document Reviewed: 02/19/2021 Elsevier Patient Education ? 2023 [email or web address]. Medication Information: The exam and treatment you received today in the [facility] Emergency Department were for an urgent problem and are not intended as complete care. It is important for you to follow up with a doctor, nurse practitioner, or physician?s cleaner assistant for ongoing care. If your symptoms become worse or you do not improve as expected and you are unable to reach your usual health care provider, you should return to the Emergency Department, we are available 24 hours a day. For those (more content not included)... Normal [facility] Urgent Care Note- Provideron 07-05-2024 Urgent Care Note- Provider Patient: BONNIE ASTUDILLO Age: 24 years Sex: FEMALE : 2000 Associated Diagnoses: Vaginitis Author: Rakesh Sawyer PA-C History of Present Illness This is a , 12 weeks female here today with concerns of persisting vaginal itching and irritation for the past 2 weeks. No fevers, chills or malaise. No chest pains or SOB. No cough. Some nausea that she associates with . No vomiting. No abdominal pain or vaginal bleeding. No skin rashes or lesions. Symptoms started 2 weeks ago and she followed up with Dr. Alonso's nurse. UA showed UTI and she completed treatment with Macrobid but continues with vaginal irritation and itching that she associates with yeast. She denies a concern for STD and declines testing today. There are no other associated symptoms. Nothing makes the symptoms better or worse. Symptoms are described as gradual onset, moderate in nature and persisting. Health Status Allergies: Allergic Reactions (Selected) No Known Medication Allergies. Medications: (Selected) Prescriptions Prescribed amoxicillin 500 mg oral capsule: 500 mg = 1 cap(s), Oral, TID, for 10 day(s), 30 cap(s), 0 Refill(s) Documented Medications Documented MetFORMIN (Eqv-Glucophage XR) 500 mg oral tablet, extended release: 500 mg = 1 tab(s), Oral, Daily, 0 Refill(s) escitalopram 10 mg oral tablet: 10 mg = 1 tab(s), Oral, Daily, 30 tab(s), 0 Refill(s). Past Medical/ Family/ Social History Medical history: Resolved Ankle fracture, left ([id number]): Resolved. Ankle impingement syndrome ([id number]): Resolved.. Surgical history: Cholecystectomy ([id number]).. Family history: Anxiety Father Sister Diabetes mellitus [...] - 02/02/2023 11:53 - Ailin Martinez RN 05/28/2024 Alcohol Use: Current Comment: Den - 11/19/2023 09:Marisela Morfin RN Employment/School 10/28/2021 Status: Employed Exercise 12/01/2021 Exercise type: Walking Comment: 1-2 times a month - 12/01/2021 10:44 - Magnolia Henning Home/Environment 10/28/2021 Lives with: Roomate(s)/Friend(s), Significant other Home equipment: crutches Nutrition/Health 10/28/2021 Caffeine intake amount: 2 cups daily Sexual 12/01/2021 Sexually active: Yes Substance Use 05/28/2024 Substance use: Current Comment: Coy - 11/19/2023 09:33 Marisela Puri RN 05/28/2024 Substance use: Current Type: Marijuana Frequency: Daily Tobacco 09/01/2021 Smoking tobacco use: Former smoker, quit more 10/28/2021 Smoking tobacco use: 4 or less cigarettes(less 11/19/2023 Smoking tobacco use: Former tobacco user Number used per day: Stopped smoking 202205/28/2024 Smoking tobacco use: Former tobacco user Electronic Cigarette/Vaping 10/28/2021 Electronic Cigarette Use: Former use, quit more denis Type: Nicotine infused Use per Day: 1-25 Inhales/day Comment: just started using yesterday to quit smoking cigarettes - 08/24/2019 12:13 - Mayte Benz RN 11/19/2023 Electronic Cigarette Use: Use, within last 90 days Type: Nicotine infused Use per Day: 1-25 Inhales/day 05/28/2024 Electronic Cigarette Use: Use, within last 90 days Type: Nicotine infused . Problem list: Active Problems (3) Depression None Polycystic ovarian syndrome . Physical Examination Vital Signs Vital Signs 07/05/2024 10:32 EDT Temperature Temporal 37 DegC Peripheral Pulse Rate 76 bpm Respiratory Rate 16 br/min Systolic Blood Pressure 100 mmHg Diastolic Blood Pressure 60 mmHg BP Method Manual . GENERAL: Awake, alert and oriented to person, place and situation. Well nourished, well developed, non toxic, NAD. CARDIOVASCULAR: Regular rate and rhythm. +S1 +S2. No murmurs or rubs. RESPIRATORY: Clear to auscultation bilaterally without rales, rhonchi or wheeze. ABDOMEN: Soft, non tender, non distended, no rebound tenderness, guarding or peritoneal signs. Bowel sounds present times 4 quadrants and normoactive. No bruits. No masses. No CVA TTP. SKIN: Normal inspection, no visualized rash. Medical Decision Making I discussed with patient with NITISH Ballesteros at Dr. Alonos's office. She recommended Terconazole daily for 1 week. I offered to do a vaginal exam with swabs and/or heart tones and NITISH Ballesteros defers these things and patient agrees. They offer to see her in follow-up next week. Return with new, or worsening symptoms, or symptoms failing to improve as expected and the patient voiced their understanding. Questions answered. Follow-up with their family doctor a (more content not included)... Normal [facility] [place] [facility]24 Urgent Care Record [facility] ? Urgent Care [address] [place] [address] PATIENT DISCHARGE INSTRUCTIONS Patient Information Name: BONNIE ASTUDILLO Age: 24 Years Date of : 2000 Reason For Visit: Vaginal discharge; VAGINAL ITCHING/DISCHARGE Arrival Time: 07/05/2024 10:15:34 Primary Care Physician: Anthony Gomez MD Attending Physician: Spenser Fang Comment: Visit Diagnosis: Diagnoses This Visit Vaginal discharge ([id number]) Vaginitis (N76.0) If you received any narcotics, sedation, or [...] legal documents With: Address: When: Anthony Gomez [address] [place] [address] Business (1) Within 5 to 7 days With: Address: When: JACKIE ALONSO [address] [id number] Business (1) Within 1 to 2 days Medication Information: The exam and treatment you received today in the [facility] were for an urgent problem and are not intended as complete care. It is important for you to follow up with a doctor, nurse practitioner, or physician?s cleaner assistant for ongoing care. If your symptoms [...] so we can reach you if necessary. [facility] has provided you with a complete list of medications post discharge. Please inform your fender repairer/provider of your visit and for further instruction on these medications. Any specific questions regarding your chronic medications and dosages should be discussed with your primary care physician(s) and/or pharmacist. New Medications [facility] [id number], [address] [place], [place] [id number], [phone] terconazole topical (terconazole 0.4% vaginal cream) 1 zoran Vaginal once a day (at bedtime) for 7 Days. Refills: 0. Additional medications on your home medication list not specifically addressed. Please contact the ordering physician if you have questions about these medications. multivitamin, (Multivitamin) 1 tab Oral (given by mouth) every day. nitrofurantoin (nitrofurantoin macrocrystals-monohydr ate 100 mg oral capsule) 1 cap(s) Oral (given by mouth) 2 times per day for 7 Days. Visit Information Allergies: Substance Reaction Symptoms Type Comments No Known Medication Allergies Drug Vital Signs: Vitals and Measurements this Visit (last charted value for your 07/05/2024 visit) Vital Signs This Visit Temperature Temporal: 37 DegC Peripheral Pulse Rate: 76 bpm Respiratory Rate: 16 br/min Systolic Blood Pressure: 100 mmHg Diastolic Blood Pressure: 60 mmHg Blood Pressure Method: Manual Measurements This Visit Height/Length Measured: 169 cm Weight Measured: 111.58 kg Weight Dosin.580 kg Body Mass Index: 39.07 kg/m2 BSA Measured: 2.29 m2 Problems List: Problem Onset Comments Depression None Polycystic ovarian syndrome Patient Education Vaginitis Vaginitis is irritation and swelling of the vagina. Treatment will depend on the cause. What are the causes? It can be caused by: ? Bacteria. ? Yeast. ? A parasite. ? A virus. ? Low hormone levels. ? Bubble baths, scented tampons, and feminine sprays. Other things can change the balance of the yeast and bacteria that live in the vagina. These include: ? Antibiotic medicines. ? Not being clean enough. ? Some control methods. ? Sex. ? Infection. ? Diabetes. ? A weakened body defense system (immune system). What increases the risk? ? Smoking or being around someone who smokes. ? Using washes (douches), scented tampons, or scented pads. ? Wearing tight pants or thong underwear. ? Using control pills or an IUD. ? Having sex without a condom or having a lot of partners. ? Having an STI. ? Using a certain product to kill sperm (nonoxynol-9). ? Eating food (more content not included)... Normal [facility] ALL CBC WITH AUTO DIFFon BASOPHILS ABSOLUTE AUTO 0 N [facility] Basophils/100 WBC (Bld) 0.3 % 0.2 - 2.0 % [facility] Eosinophils/100 WBC (Bld) 1.2 % 0.9 - 7.0 % [facility] Erythrocyte distribution width (RBC) [Ratio] 12.9 % 11.0 - 15.0 % [facility] Hematocrit (Bld) [Volume fraction] 40.3 % 36.0 - 48.0 % [facility] Hemoglobin (Bld) [Mass/Vol] 13.7 g/dL 12.0 - 16.0 g/dL [facility] IMMATURE GRANULOCYTES ABS AUTO 0.06 High [facility] Immature granulocytes/100 WBC (Bld) 0.5 % 0.0 - 0.5 % [facility] Interpretation and review of laboratory results Abnormal [facility] LYMPHOCYTES ABSOLUTE AUTO 2.5 [facility] Lymphocytes/100 WBC (Bld) 21.2 % 20.5 - 60.0 % [facility] MCH (RBC) [Entitic mass] 29 pg 26. 7 - 34.0 pg [facility] MCHC (RBC) [Mass/Vol] 34 g/dL 29.9 - 35.2 g/dL [facility] MCV (RBC) [Entitic vol] 85.2 fL 81.0 - 99.0 fL [facility] MONOCYTES ABSOLUTE AUTO 0.4 N [facility] Monocytes/100 WBC (Bld) 3.3 % 1.7 - 12.0 % [facility] NEUTROPHILS ABSOLUTE AUTO 8.7 High [facility] Neutrophils/100 WBC (Bld) 73.5 % 43.0 - 75.0 % [facility] Platelet mean volume (Bld) [Entitic vol] 9.5 fL 9.5 - 13.5 fL [facility] TBH EO # 0.1 [facility] TB PLT 378 [facility] RBC 4.73 [facility] WBC 11.8 High [facility] Outside Recordson 06-11-2024 Outside Records [id number]#1. [facility] Coding Summaryon 06-08-2024 Coding Summary HTMLBase 64 PufowcjxNQq6fQp+PGhlYW Q+FR8HSCDtG54rvOZlaP9j B9MTBHvXOiwhQCYKWPpZDn UbhhUnCS0amZMcFBEc IC8+AE3jFALwIreueOSgg9 C7jBV3B70ane1wSHabaEO6 GIMpFyMeuflbk1gtmIo2YT cuNmluOyBt QUEcwS77HZU9iH45Gh06bV DqbGIeu2elsIl1NgQjNMUt PCB1dIevIIddq0CbECCiE8 1heUWgr8V3 AXKncWhhtZYjCvIyaPH2jR 5lSArocpevc3tlpbjaNol1 yt35zFNol8Z1yXE3P5Qnhl H0SVSlbRPj UqagmMDIvQ1kcgsxm0xadk siZkNzTNCjZAt9FSb6NFIn nNepTdSaYH24XKM4DPDkvp IqA0ReTEJq oRmdIhU8j1Q6Kh4AF9QPZn plP8AURHMFYPuxgIG+PC90 dh90J6BuBqfeAlu4YVQpFB I2hKG1cC3j EINcAObox1C3sPT4F6Umpw Gnwq2fw5btQKDqMTcdM29w zRKzy6F8XMFnyTG1HVQxcB rnWcOjvZ35 Oyc+QIEhvIyaj5DwTmmuw1 ybf1jimHm8GnxgDHRmruZn nIshWZH7t3TnRy2nSXRbuU Q5rRC4sY4y OwPiPaH8PAxpK490HgKcvG OhRsgoH63hA2ExcXD+PHRy Piy9JCWocZowQB8hY6IjBL RpbmctbGVm ePliZV1zIGMbhxysSMIwfM 8vFAXjD7m2EsIkZgG0LZvc M7XfFFTuxacrCj86uC3sUz CxPeB8EPjj B0PexkW4AFMyyKKaWMfxCK I5T59xx9Q5SWMbPPTmXJU6 yKT9gP7icQxlvzpseYAurH sgdmVydGlj LEvdNBsqZ428UMZynAxkCd NvZGluZyBEYXRlOiAgMTAv MDQvMjAyNDwvdGQ+PHRkIH V4gClrJCZg qQKsMAfmGh1ubBiyaBlmMN 2iLITmbmitWOKziI9cVNOy zEYfwKdqCT2nNMLrdjmdd9 13VwJoUHR1 SFGshZBmU1VhxB5bEkMyGU MyWCGsH1PvyQZiULioX634 RVqzLsJ6STMpagDoP0DeRM FsaWduOiB0 d1R1Jv5Yd2SgulsxQ2YfxP HuXfNdYzwnKHg5K9FwFerk dHI+OS98MVAkQO17FDj1AN M5zWihNFft ALCrF3GgiD8qGgMqNURbRW RkOyc+PHRhYmxlIHdpZHRo QKovAQEdHsVldZgyMW0tEb 9yZGVyLWNv nIpyeZPjLnXzm1bhNCYmZR aeNA7ajOkxJ8GehXE1JLOn w0w4Sd25C24jV9QotFU+PG VgcYK1xWT6 zF4pNlJxCwC6FLuvN746Bv JbbVSeXgekn6iti5dufJc6 PaE8BDLeaxJppEeeFOA2p1 UqKr80O14b IHdpZHRoPSIxNSUiIHZhbG cngp5wrO3iZy7+PGNvbCB3 aSZ8iJ3fJnTfGbL2YSifW9 49InRvcCIv Pqxqu3anu9oyzRh1BxIcNW XylcRntTrnGPO3s0TbNy81 K4JfqKtzo6XjZop5sb64bP Dwn1V5hSM4 X4UoOKCgeadagVYadGzjHX 4gVRJqkaieEYIngH0hHMKk D8r4EgAiLpA3GMfwO0Aqmv V9WKOpjUWe TFFncRJAzW6lhhhua0evqu vpWdFcXVNcELu7SOs0XBKk gMroCrYaSMY6ZtF9WKC1aU JnmM6usWzg kiqduZ3oRfh+IDN7sFDxrF XSIX4eSdruzXS+PHRkIHN0 zMamUVdnZGKqeA4sNLQeE1 w3KwDnOtJ2 XJnsT9BvelP4URTuzYVjLA ShoXIPcD1xqpllf7nqukei DwLnETYaMYc9YDc3YPImuM duOiBsZWZ0 YnJ8GAQ6vXShnW7npRfxnz arnS2lEam+QmlydGggRGF0 ZOg8N3IyWyc7ZYLyiKjcMF 0ncGFkZGlu Pi3kvQpikLuxQC9hFIPxjl uzj844RcXub2riGGCrwVKf FIxnMDR9D27cp3P1KBPvID ZsOQD5wTB7 cW8uqPzkdvhneSQcxObjyl TmnYmgCWedPCwlH567LFRi jTpqVsXmIKp2P7CfBza2UE DipGhjRX7l yMCaAGqwUi1pcLtqzSmdRE 1fUGVitfznv756FaPmn7bo BMRjnFBjNJzyUOK3R64ja4 S2REBxRYOq VVV8pRZ3rR3uuZntprfyiX VmdDsgdmVydGljYWwtYWxp B924WEJsoFwiRrOmrBp8A2 IwIuu1ETIg pDnwCY8dnAGyZLycKb8gjN vjnTyeOW3tSHRdnicti082 EoUgo4jnKALcaBHtQSijKD Q4F88gx4X1 VXJaCSLnJJJ6fPG8dW2qhL lnbjogbGVmdDsgdmVydGlj WIwoNAqrW859IWQfwFefQs BhdGllbnQg NQhvCOg8J6OrMgesrHL+PC 77IYSuXW85bGGccWOea6hi oAz5IuLeAWZcINK1kKmwHS uyk0FiDVYq G50fiEPas8I9DBJosWinbS TqRkMhiRG3sT9fCBxdoqum u6qcgztnBfoyn3ftzk45eV 46B85uUCzr ZHRoPSIzMCUiIHZhbGlnbj 4yvV5wCu6+YXNtqIJ2eDQ9 tF3eFLXkOwT7RAqgD645Vb RvcCIvPjxj h6yoa9ypbPt8EuR2IWAhfw ZxnRveBXM9a7ImIg92P45u IHdpZHRoPSIyMCUiIHZhbG plsn0ewD8d Ii8+JOZfaRQ7iAZ2rC1gSt DuVeO2ZUdxY498XlVncRTd HgexO31cN3LrnIW+PHRyPj l6BYYbbSvm QN3zhOApQRbsQv5bGBH7Wv UlOwYqMZzhN7RmIOQnjjsh mmhzlQJ9ZLGvFVOzkA31Bu 9udDogMTBw wPVYvD9ftqmqq3yqaewjFo SdTBNwHZy7NNz9AGXymEkg MhPzJIW6QzL5FNJ9mFJpuY 1hbGlnbjog mL4iD7AqMBNxlzauWe96hI 6aZsEkJxW8XPggIzo+Q1JB G2SXNxAnPGCIVGDZYcMfJX lDSEVMTEU8 I5NzBel0ZKFnhSaeVG4feP QrVMurBi3wpNkaxRzdDH3e XAMyimxxOEBugG5sUITgaC KgzDvjZH3h QPBfxixjb260MqBxMQH0BM PkvMFzK2LsdM0yLbKoKNWy VJWaI1BtdHDuYWlwU714ZJ gfApT6YMBv atOrL3NyDHHzjXwaZyL1d7 Z6Hp4sUb4wIA6eRSs4EB57 WT55nJPwq0Q8bFJ0O3SzHX Rpbmctcmln kRY1KWSlMARwuY20oTBcEV mpSs5tg3X9x116ZBWsVBRn pI42Hc6uuByfEQWfqMYJnK 8fyzpav2lf pzimVtKtGYVsNWb6NVb8OY YabRgdMqTcHPV0DzB3ONU9 lBNiwO1ygSpkhxxieF5cIj c+MjYgWWVh grB0J0WgWci3SQTbdLyzBL 3bcZLaAWhiEw4gvNbuhSlm GM8sNZBmtfsoWLQgmJ6kYO JvdHRvbTog LD9kYESwguwtv465KdFyUP S1ETZcoJMiY1QdbY1uKmBc WVDqQJZgW8HwnNSsXIzdG2 48QCjvPyM8 YLLquwQaB9FqOPOqwJziFq V5p3B8Wy3QYS6BPDN6S8Wl Ghc9PMNvsWfhZN2thHJjZD wvYv6onCjc gNccOL0yHLRdtahzYOUpxA 1cYMMtyAAwfLdbHI4jKFKj sakyo650DwNoLOI2HPSmfN KiO2PheP6c LtOfDRTtLHMoU6LfcLAfMQ xvT829MUpxCqI1NRSzlzWc P3CwESDkgZdbLoI9l0G7Yh 7AyPSmU2Gc K5a8W1FfSvxqyLK+PC90YW HvJO47mVXelHLaf9vsmEg3 OtXnHEUdACX3eDlxEYdcl0 BfPNNjK32l rJZls6K0HEVowLtjeENlQt DspUQ8dF8uICdrduurx5zo cjggPjfox7tqkt20rS19I3 9sIHdpZHRo FSUxPBYqBQBegMzlhz9sbQ 9wIi8+HENbjCV2uBO6qX8o FlBnXhG2LDkmP114PaMdyX UuTwsno5hw d4sxrAg5YdDxONUkemXpkS uoWER0q5KfLn91R01iXIss ZHRoPSIyMCUiIHZhbGlnbj 2vlK0gUz3+ KO0gf4rias07xH96lOS+PH NyQWB7hGwdBAqjHFYzdK2a YNktWbX2NSPdXwZcjL83fD JoAOncJr0d aMtwgQfmOR9gMMWejxusb7 46SvImn5mlUDDraBRtJSrx UDH4S62hy5P6DHWdTCPfVH T3yCK0jV7u bGlnbjogbGVmdDsgdmVydG wtBMacIBfzQ587HWSvnFhu IfOauXNcH5hnpyCWPY2dDs wvdGQ+PHRk OGT2zLgmQLxbNMTknR9kUY WwL2u0SfFpDlS3AKqhW2Hl gtH3KRLayEPqXZBadEOBvB 3ffganr2ri kyypVhHvGPHsXLt1MFd6HN GpfDdlIxPcMVQ6PvV4QSP7 eVLvvP9fkXninsrrpR5xGk c+RklOOjwv dGQ+DQJtLGQ7qVjbOOneLH BvgX6jVVYyY9e8IoDvNcI5 NQbpA0BqooT4XPQlgXVrHT YybVACbN3c qswut6vdixihOqZgYUCiJZ q4JMb1OGRonIzhDuNoWVM9 MgW9BVZ8oIWzhH7woIejbi malX5hZbn+ TVJOOjwvdGQ+ULRoBTT4eN hoMXosTEWrvI0gHAUrR6c7 VrTlCqK5MEroE3RgicO8GF JvbGQgMTBw kSXUkA7zyexdu8heiibrDt JnUFHbFAd7SFl7JSFiiBzu IpXkCBF6PuZ9CEH9eKLgsD 1hbGlnbjog cM2vVgs+OKD4PAY3TT37JH 86A2JkGtlzoSChvRB+PHRh YmxlIHdpZHRoPScxMDAlJy MzcOfwPY8e Ym9 (more content not included)... Normal [facility] HCG ( test) Ql (U)o n 06-07-2024 Interpretation and review of laboratory results Abnormal [facility] Preg Test, Ur Positive [facility] Urinalysis macro (dipstick) panel (U)on 06-07-2024 Bilirubin, UA Negative Negative - 4(70) +++ mg/dL [facility] Blood, UA Negative Negative - 50 Osvaldo/mcL [facility] Clarity, UA Clear [facility] Color, UA Yellow [facility] Glucose, UA Negative Negative - 1999(110) ++++ mg/dL [facility] Interpretation and review of laboratory results Abnormal [facility] Ketones, UA Negative Negative - 160(16) ++++ mg/dL [facility] Leukocytes, UA Trace Negative - 500+++ Edison/mcL [facility] Nitrite, UA Negative Negative - Positive [facility] pH, UA 7.5 5 - 9 [facility] Protein, UA Negative Negative - 1999(20) ++++ mg/dL [facility] Spec Grav, UA 1.020 1 - 1.03 [facility] Urobilinogen, UA 0.2 0.2 - 12 mg/dL [facility] Coding Summaryon 06-05-2024 Coding Summary HTMLBase 64 UjxqqukdUYr5mXa+PGhlYW Q+SO3HQRHtC24osJRuzJ5z A9YEGSnPGzctBNAGMTrLPc QxznHdQE6klKTbXKPc IC8+JD5aRSWoGxzeeMGwq9 Q2kHR8N17zuj3nXIgrgTO6 EDHoQnVkdeeim2aycAo8FA cuNmluOyBt RPRjqK55PJR7mN14Yn84fP BscLOxd2vbhXs2NaJzATAl MWC2kQuyYNysa6XlYUVrT2 2yuNHnl8D8 OKXyeHcanBWnKbQadRA4aG 6iNUomgoxdh3eunubxCel7 la99fGTqg3X1lST4D5Srln J5DESndIVx TrubwRNTcG5hequco6absh fbSpCiRFOvBOe7URp6WTTb yBoaZpQbVG95TVS4BXKipy VwT6VkNUQw fRabNuO0z0Z2Jc6IP3DAIw uuK9GNXHGJIPjqbWR+PC90 fi36C8YbUufrUyi4TCUjBQ V9jQO5dT4y MEMuQIhvd8N6vWN9W2Alyx Ecjs3hb3oeENMkLWgfN84p wCOer0J0WVNouRX4TPIegD cnWxRyqF35 Oyc+WJDvyHzkw2NmYasii1 qok9dxcHs7AdmxGBNrlqCk cTtpDXG7a3McIq2mCKEljA J9wIB5rP3k CoAiMsH4VXyfM732BlZuyB StEtrlZ11zX5QckNK+PHRy Gmd5ARVlkKkfWS1sW5VrSW RpbmctbGVm rFxyCI3dCSKkkfqdPNLcnG 5dSVSaL2o8TsMkYxD6EXpd Z3IkWPVlldfxNp04kR5pKq JmMnT4URct P6UxveC8COVqlSLuYQrcNE G7R72hx1M0JKRhNNZhGJF1 jGA1zB8ioIluyijqjKFzcR sgdmVydGlj VTwgGUgsB333HHAygPlcDl NvZGluZyBEYXRlOiAgMTAv MDEvMjAyNDwvdGQ+PHRkIH S8xWitQREo mAWjCMyeKy6lmLqcpGhmNN 1bJBBajohgMXLnwW0vUHTi mOVxkWteGK6vKIPxygvdp8 37KfCaKLS3 ELTcdROwM6XvqI7kIoIwNA WiOYIwC9YuqFQhRLstT590 JPfbMzN6ZZGfgfLzQ7LzVY FsaWduOiB0 o4Q2Os3Sn0RjkqefC7VsuF OvGtVjHcraNSi2X8KlBgmt dHI+AF73ZYIsDB19FVn6AQ V1nVacJRyc RHXdA6RlfK5hAhJmXDWuOR RkOyc+PHRhYmxlIHdpZHRo TTonNWEsBeBlgBrkFN9wGq 9yZGVyLWNv mMtoePQqWzSyk3jxOXTaGM hdYE2fjHykM6DpfPL3DOGo w8e6Qa95D45hY3EzaMK+PG JdtNG4wCD5 pW4zKeOpYfG6VAggW579Jd YjvDDtNenbf7adc1eizIi3 OvF8WVFpysLzjFceOZY9q1 EjNo87X38p IHdpZHRoPSIxNSUiIHZhbG xkoc8xhS0oTg9+PGNvbCB3 eDQ3sH1lVgKjFqZ2XZxnS2 49InRvcCIv Ogfnu5omw9iieKy3YeNoBV DowzCiiLlrSOM7v4AkFw65 I8GpyPyxy2HqUza9yi69fW Clu8R0sFN1 Z4NxZPAyfbwroITekZewZR 3oXDBufifeBYLsmR7yBYOo J8e4BqDoLyH0MVghW9Wfrp Q0XUZmjRDb TQGcwEMTuP6jpkhou4hzih ksWoGqQUZfKWf4LXt3ZPLb wMzuNnLyDIS6ZoV7HIU6kF PzsL2ocYhb tgvqqJ2aZyr+XUE6yZWrlM FVQD7wQnyrbQK+PHRkIHN0 nRovVAhlIKDjkW4yKMGeS9 m4LeUlFmT9 VXnnA7ToueA4IXMsoRRjOE IcrDMXjF6asojal8psqcky FbGoKWRqJQr4PNe1EKUelQ duOiBsZWZ0 UpH8CTD3tWHtwP4goMkuuq kgrW2cYqg+QmlydGggRGF0 CGb7G5MpDqa9RXTqxIclPG 0ncGFkZGlu Ve1qeHzpnFdqSB7sEOMyee nyt568NfHnv4ylABChtJQu HQelHIA6X72pf6W1XZSrSN JoIZB3cYI7 xJ5wmNdyruggaTOzaBjfge CihHxoCSmlJRaqF495EEYx lCykKkTbGPr1D0FeKnh7HC VztLtgGM7o fHZeCTtjHe0mfVgbtQkhAB 5eSKSkerwrz519YcXsg9gm BJVkeBLxSIiyZZY3F66ug6 B1DCJnDYXl JON1vWB0xS8mpHhficluhY VmdDsgdmVydGljYWwtYWxp U771DRGocFzwDeNisIg9E8 VnZdg9SKGj eFepXP0cpYJbSDvtIl4xeA qpmTnsWX8nKHOlfgspf224 VlKnz6xkTCPazKRhDDegJE C2P32fw5H5 BWXiNBEhCYO5vQH4lP6csL lnbjogbGVmdDsgdmVydGlj WBwvPUsiJ790DAHddUjxAs BhdGllbnQg NSrmQCc8F1ZqVwcvuMX+PC 46GTXgJY51fWRjoGHcg3vr xHm2XqAxJOIrLVC9iAlaPW bdl6AjAXUc W11foYQwf0E5QRIzdOnvnJ LbUaDnhZC9rB3qBRsndzpd d8bslrxsFahyh1wkzs12wM 58O84iVLuc ZHRoPSIzMCUiIHZhbGlnbj 0dvM6iTx4+GFXczSG1kAY9 gP9fYDAwGaH9TDpiI399Rt RvcCIvPjxj y6hzn7evcBp9AmQ8NJYjxz CogMsxYYZ2c4SbId16T43j IHdpZHRoPSIyMCUiIHZhbG njbw3egB3z Ii8+DNEcfVR3bOB6nM4sKg ZvTlG9WPbhG869AhLlkWWt SkqjE40iP9XcvIR+PHRyPj o8VAGhmZov DT1dhTHvOBucFj6fQFV1Wo JpFvZhEGtjJ0CeJNIsdinh csvamTR2KROoGJBxoZ37Ns 9udDogMTBw pTVQfB6qeehbf5wzxrtcRu RjBPSuCPs8SJf5EEOqvZrl NfBuSID4ZzS9CHB7vPWmyU 1hbGlnbjog tZ5aT3RbYRSxqtwlFy36aX 8eYwPeJbM0PHafDmz+Q1JB A0XYSqDcQRLDWUGEWjXtFY lDSEVMTEU8 A6ZeOlf7NUSnqEwuHH1xlI XiQXcfTv9kcOzbhSlaQV6v QTYfpxqqWAPzvY4mVHLoaE XjdRdbIB3b STWeznfoe268AvFdQLU8KK ZgtTWaS7UwbK7iVdScETUu DTVuY8HyvAQuNRaxZ759LM hfHyI0YXOg wdUbU0TeUPZqlSnzHrQ5l0 I8Ay7tMi9qIX2rRNb8OU61 CO85uNFuj9P2rPJ0B0VpRK Rpbmctcmln aJY7GMQfHKOqfF65xMMgJD jiBn6nk1D7n856LHBgSZQe lV80Fq7tuNraHGMofYYLjK 9vbpyvr4cf meklYcSmAINdRVk7ZDk0PK CpzMlhSkIwSJD2HaD4RKW2 iQSvwE5zdSxvqdzseT1nKc c+MjYgWWVh obB7G6RhUmr1LMCpzBkpCF 8lmGQuUCgyLg8jzAwlaZkd BF6hSUFxfzduUWAleH5dPY JvdHRvbTog DF7cFYWhmfynd053ObFdKX H0UOEqgIXdV7MxiA3aDyWy NPTdVFFgS7EgnAIuNOunT4 06RRgxYeC0 MWQplhPbT0WzRXZjzAheIa X0n8R8Ln8ITQ2CUWI0E2Rd Iqv5EJEuoGgoWC3mcZXiFB brXu4urUjz cSvkFQ1vQYFiccdhYILesC 4xJFElbYVaqYziES9oCPTw gbejh232PoYhIVF6RSEpxZ IoK1OocV9v StBnQXUrKFXsE3OttPLlTL wrS181WShoOnT6QBJcelUt H3VlWOEvtAbjFkF3o5N2He 5PUDwvdGQ+ WJ16vw71K4FoSbnwNyo4TI TlIHD6iQQ4zL0aRQJxOJlm d3M8zUR8O7JhvcJriv7ib9 xsYXBzZTog A97mcAQne6S8ZVIwkAO8HT PyvTncKwVrwW18Lhu+PGNv lOqqe6MpLqvys1xva8ckkE k9WsBhOSRp hkXfvNtdTMC3w5XqJm78V7 9sIHdpZHRoPSIzMCUiIHZh kOvfeu6lqD9lFv2+PGNvbC K1vEM0vC9e SbAqGvU0TDliA380RhNxzS EuTvkgj4csr1bokTj9VwSa KHHrlsJdxFjrVVY5p5KgXg 32R4BrgIiz l9TqQfp8cp44nYVts8I4aZ I0U0RzSETmywwowWSskAcp EW1sUSRcevqvDBNtuJ0gUL XmK3h7OjEm RuM6HQbcQ1SiboL0DXJneT XlCBHpeAXIrU8xadsyd3dw fvgjAoDqVXNbMQo3ZUp4MC FsaWduOiBs JIB8BaN5DGQ6cDLnqW3yfB ygsijfcG2fTna+LIy3u7ka nOBbFJ9ciIN5LJ53CQ58uV Yty0Q2zTJ5 M2XxOPJfhvevcuhdhVK3WP FjLIKbtB31Al4nfSnzSk8j KUEcYXO2GTOxsLVkE1HwxH 9yOiAjMDAw BSNwF6OfnEXoJJjwD413ZJ ejOwH8HUYwkbWaK5OxPYIk iRwrNlX2c4U4Hb0FDR21YT 27MH74mSKz p1T7bLY4X7IyYXFpefclbv vctKK9WNDcNXGhzF61Bz0j sGfhAo8qFMGzDSM9VIUmwV ZyN9LsfL3k FfBgLYPxJYAoX2DkbTAwJM vkQ348LMjvEnB0QHMafkSb K9EuZUCokFgvChZ6e1L7Bp 8XCj07XZ33 WO49jPSep1H8rTE4H2MrXU PxisabwwvvoLI2NRNpOYDz kF83Ej3lqPpyLd7pXHBaPX M6WAPuxOQm V1WqnA9zRcPhPNMkSKVxE6 QcoJEvXWcvU217AFdhZvS9 KGYrnoQpM2UmMYEtlNroNa L0x5U5Zs5U IPuacxv5M1UbOgqpvNX+PC 34CQQaHD04oYKjhXNal6df wYa3JiVpPBLkAJF4mRoyXS tpr9FxPUAz Y29 (more content not included)... Normal [facility] Office/Clinic Noteon 024 Office/Clinic Note Patient: BONNIE [...] 113.040 kg Body Mass Index 39.11 kg/m2 [place] Body Weight Calculated 61.437 kg BSA Measured 2.31 m2 General: Alert and oriented, No acute distress. Musculoskeletal: Positive point tenderness over the left gluteal region as compared to the right. Positive straight leg raise. Positive piriformis muscle sign with external rotation of the hip with adduction towards the opposite shoulder.. Impression and Plan Diagnosis Sciatica of left side ([id number] M54.32). Plan: Discussed with patient stretches she can do to help with her sciatica. They were demonstrated in the office. Will hold off on any steroids.. Orders Orders Evaluation and Management: [id number] Office visit - established pt, Level 3 (Order): 06/01/2024 13:28 EDT, Qty: 1, Sciatica of left side. [Electronically Signed on: 06/01/2024 13:56 EDT] Anthony Gomez MD [Verified on: 06/01/2024 13:56 EDT] Anthony Gomez MD Normal [facility] .Auto Diff 1on 05-28-2024 Auto Fleming % 5 % Normal -12 [facility] Comment on above: Performed By: #### 1 [id number], [id number], 7937406, [id number] #### [facility] (DEFAULT) [address] [place] [address] Baso Abs# 0.1 x10 Normal 0.0-0.2 [facility] Comment on above: Performed By: #### 1 [id number], [id number], 0647387, [id number] #### [facility] (DEFAULT) [address] [place] [address] Basophils/100 WBC (Bld) 0.6 % Normal 0.2-2.0 [facility] Comment on above: Performed By: #### 1 [id number], 8028989, 5702079, [id number] #### [facility] (DEFAULT) [address] [place] [address] Eos Abs# 0.3 x10 Normal 0.0-0.4 [facility] Comment on above: Performed By: #### 1 [id number], 4948929, 5419701, [id number] #### [facility] (DEFAULT) [address] [place] [address] Eosinophils/100 WBC (Bld) 2.5 % Normal 0.9-4.0 [facility] Comment on above: Performed By: #### 1 [id number], 6810944, 3224052, [id number] #### [facility] (DEFAULT) [address] [place] [address] Lymph Abs# 3.6 x10 High 1.3-2.9 [facility] Comment on above: Performed By: #### 1 [id number], 6077391, 8447340, [id number] #### [facility] (DEFAULT) [address] [place] [address] Lymphocytes/100 WBC (Bld) 27 % Normal 14-48 [facility] Comment on above: Performed By: #### 1 [id number], 1185787, 1709314, [id number] #### [facility] (DEFAULT) [address] [place] [address] Fleming Abs# 0.7 x10 Normal 0.0-0.8 [facility] Comment on above: Performed By: #### 1 [id number], 0921968, 3266076, [id number] #### [facility] (DEFAULT) [address] [place] [address] Neut Abs# 8.4 x10 Normal 1.5-9.2 [facility] Comment on above: Performed By: #### 1 8855577, 9596080, 1907021, [id number] #### [facility] (DEFAULT) [address] [place] [address] Neutrophils/100 WBC (Bld) 64 % Normal 44-88 [facility] Comment on above: Performed By: #### 1 1294857, 1428570, 5921184, [id number] #### [facility] (DEFAULT) [address] [place] [address] CBC w/ Auto Diffon 4 Man Diff? Auto Invalid Interpretation Code [facility] Comment on above: Performed By: #### 1 [id number], 2893347, 4600387, [id number] #### [facility] (DEFAULT) [address] [place] [address] Erythrocyte distribution width (RBC) [Ratio] 13.6 % Normal 11.5-15.0 [facility] Comment on above: Performed By: #### 1 [id number], 7357130, 8727404, [id number] #### [facility] (DEFAULT) [address] [place] [address] Hematocrit (Bld) [Volume fraction] 42.0 % High 33.7-40.4 [facility] Comment on above: Performed By: #### 1 0688516, 9258614, 7754144, [id number] #### [facility] (DEFAULT) [address] [place] [address] Hemoglobin (Bld) [Mass/Vol] 13.8 g/dL Normal 11.3-15.9 [facility] Comment on above: Performed By: #### 1 0924902, 9627773, 5623165, [id number] #### [facility] (DEFAULT) [address] [place] [address] 11662 MCH (RBC) [Entitic mass] 28 pg Normal 24-34 [facility] Comment on above: Performed By: #### 1 3253861, 7552298, 5687653, [id number] #### [facility] (DEFAULT) [address] [place] [address] MCHC (RBC) [Mass/Vol] 33 g/dL Normal 26-37 [facility] Comment on above: Performed By: #### 1 [id number], 1653951, 5849949, [id number] #### [facility] (DEFAULT) [address] [place] [address] 11243 MCV (RBC) [Entitic vol] 86 fL Normal 81-100 [facility] Comment on above: Performed By: #### 1 [id number], 7806057, 7155657, [id number] #### [facility] (DEFAULT) [address] [place] [address] 40620 Platelet 352 x10 Normal 138-427 [facility] Comment on above: Performed By: #### 1 [id number], 7499591, 4647657, [id number] #### [facility] (DEFAULT) [address] [place] [address] 91214 Platelet mean volume (Bld) [Entitic vol] 7.8 fL Normal 6.3-10.2 [facility] Comment on above: Performed By: #### 1 3644757, 0360636, 7961405, [id number] #### [facility] (DEFAULT) [address] [place] [address] 89342 RBC 4.90 x10 Normal 3.70-5.30 [facility] Comment on above: Performed By: #### 1 9453003, 4281558, 1879936, [id number] #### [facility] (DEFAULT) [address] [place] [address] WBC 13.1 x10 High 3.5-10.5 [facility] Comment on above: Performed By: #### 1 1435226, 3127189, 4412779, [id number] #### [facility] (DEFAULT) [address] [place] [address] CMP Standardon 05-28-2024 eGFR Non AA >60 Invalid Interpretation Code [facility] Comment on above: Performed By: #### 1 [id number], 6220457, 1865133, [id number] ####[facility] (DEFAULT)[address] [place] [address] eGFR AA >60 Invalid Interpretation Code [facility] Comment on above: Performed By: #### 1 2798626, 8226177, 9217040, [id number] ####[facility] (DEFAULT)[address] [place] [address] Albumin [Mass/Vol] 4.4 g/dL Normal 3.5-5.0 [facility] Comment on above: Performed By: #### 1 0835554, 6683193, 4682875, [id number] ####[facility] (DEFAULT)[address] [place] [address] Albumin/Globulin [Mass ratio] 1.2 {ratio} Low 1.4-2.6 [facility] Comment on above: Performed By: #### 1 6386681, 2139849, 1740877, [id number] ####[facility] (DEFAULT)[address] [place] [address]4499 Alk Phos 46 IU/L Normal 32-91 [facility] Comment on above: Performed By: #### 1 7041932, 2280207, 1957499, [id number] ####[facility] (DEFAULT)[address] [place] [address] 72131 ALT [Catalytic activity/Vol] 29.0 U/L Normal 14.0-54.0 [facility] Comment on above: Performed By: #### 1 8591199, 0922140, 3822538, [id number] ####[facility] (DEFAULT)[address] [place] [address]8916 Anion gap [Moles/Vol] 11.4 mmol/L Normal 5.0-19.0 [facility] Comment on above: Performed By: #### 1 3228851, 1541619, 3260306, [id number] ####[facility] (DEFAULT)[address] [place] [address] 09423 AST [Catalytic activity/Vol] 30 U/L Normal 15-41 [facility] [facility] Comment on above: Performed By: #### 1 [id number], [id number], [id number], [id number] ####[facility] (DEFAULT)[address] [place] [address] 92967 Bili Total 0.4 mg/dL Normal 0.3-1.2 [facility] Comment on above: Performed By: #### 1 [id number], 3898573, 6626870, [id number] ####[facility] (DEFAULT)[address] [place] [address] 62080 Calcium [Mass/Vol] 8.9 mg/dL Normal 8.9-10.3 [facility] Comment on above: Performed By: #### 1 [id number], 3386463, 6616687, [id number] ####[facility] (DEFAULT)[address] [place] [address] 90146 Chloride [Moles/Vol] 104 mmol/L Normal 101-111 [facility] Comment on above: Performed By: #### 1 [id number], 6215029, 9185780, [id number] ####[facility] (DEFAULT)[address] [place] [address] 69587 CO2 [Moles/Vol] 20 mmol/L Low 21-32 [facility] Comment on above: Performed By: #### 1 [id number], 5511671, 0192906, [id number] ####[facility] (DEFAULT)[address] [place] [address] 46780 Creatinine [Mass/Vol] 0.66 mg/dL Normal 0.60-1.30 [facility] Comment on above: Performed By: #### 1 [id number], 0795540, 6340160, [id number] ####[facility] (DEFAULT)[address] [place] [address] 78151 Globulin (S) [Mass/Vol] 3.5 g/dL Normal 1.5-4.3 [facility] Comment on above: Performed By: #### 1 [id number], 3364236, 9354538, [id number] ####[facility] (DEFAULT)[address] [place] [address] 83472 Glucose [Mass/Vol] 100.0 mg/dL Normal 74.0-118.0 [facility] Comment on above: Performed By: #### 1 [id number], 1723084, 1063788, [id number] ####[facility] (DEFAULT)[address] [place] [address] 42734 Osmolality 263 mOsm/L Invalid Interpretation Code [facility] Comment on above: Performed By: #### 1 [id number], 7809646, 2815369, [id number] ####[facility] (DEFAULT)[address] [place] [address] 01498 Potassium [Moles/Vol] 3.4 mmol/L Low 3.6-5.1 [facility] Comment on above: Performed By: #### 1 [id number], 3961405, 2025007, [id number] ####[facility] (DEFAULT)[address] [place] [address] 94056 Protein [Mass/Vol] 7.9 g/dL Normal 6.5-8.1 [facility] Comment on above: Performed By: #### 1 [id number], 7471574, 0089628, [id number] ####[facility] (DEFAULT)[address] [place] [address] 52321 Sodium [Moles/Vol] 132.0 mmol/L Low 136.0-144.0 [facility] Comment on above: Performed By: #### 1 0541907, 0719226, 4976592, [id number] ####[facility] (DEFAULT)[address] [place] [address] 63283 Urea nitrogen [Mass/Vol] 9 mg/dL Normal 8-26 [facility] Comment on above: Performed By: #### 1 3398864, 2289239, 7518349, [id number] ####[facility] (DEFAULT)[address] [place] [address] 18645 Urea nitrogen/Creatinine [Mass ratio] 13.6 mg/mg Normal 4.6-16.2 [facility] Comment on above: Performed By: #### 1 [id number], 1938463, 1445281, [id number] ####[facility] (DEFAULT)[address] [place] [address] 85588 ED Clinical Summaryon 2023 ED Clinical Summary [facility] Emergency Department [address] [place] [address] ED Clinical Summary PERSON INFORMATION Name: BONNIE ASTUDILLO Age: 24 Years Sex: FEMALE : 2000 MRN: Acct#: Visit Reason: Back pain; Abdominal pain - ; ABD PAIN LT SIDE, LT LEG NUMB Arrival: 05/28/2024 14:14:57 Discharge: 05/28/2024 17:55:00 LOS: 000 03:41 Check In: 05/28/2024 14:14:57 Checkout:05/28/2024 17:55:00 Address: [address] [place] [address] PCP: Anthony Gomez MD PROVIDER INFORMATION Provider Role Assigned Unassigned Evonne Cheung PA-C ED PA 05/28/2024 14:19:07 Daisy Freire CARPENTER [employer] Nurse 05/28/2024 14:26:14 VITALS INFORMATION Vital Sign [...] Home PATIENT EDUCATION INFORMATION Instructions: Muscle Strain, Yvxb-oc-Rjjn; Sciatica, Snrp-tb-Zqqt; Back Exercises, Byzw-tp-Bqfs Follow-Up: With: Address: When: Anthony Gomez MD [address] [place] [address] Within 3 to 5 days DIAGNOSIS: 1:6 weeks gestation of ; 2:Low back pain with left-sided sciatica; 3:Pain in the side Patient Understands: Yes - Patient/family/caregiv er verbalizes understanding of instructions given Comment: [facility] ED Clinical Summary [facility] ? Urgent Care [address] [place] [address] Clinical Summary PERSON INFORMATION Name: BONNIE ASTUDILLO Age: 24 Years Sex: FEMALE : 2000 MRN: Acct#: Visit Reason: UC - Abdominal Pain; LT SIDE PAIN, LEG PAIN Arrival: 05/28/2024 14:07:02 Discharge: 05/28/2024 14:10:00 LOS: 000 00:03 Check In: 05/28/2024 14:07:02 Checkout: 05/28/2024 14:10:00 Address: [address] [place] [address] PCP: Anthony Gomez MD PROVIDER INFORMATION Provider [...] left flank pain; Currently Patient Understands: Comment: [facility] ED Note-Nursingon 05-28-2024 ED Note-Nursing Economic Geographer at bedside while US was performed. pt tolerated well [facility] ED Note-Nursing Pt ambulatory back t o [...] Pt is A/Ox4 call light within reach Normal [facility] ED Patient Summaryon 024 ED Patient Summary [facility] - Emergency Department [address] [place] [address] PATIENT DISCHARGE INSTRUCTIONS Patient Information Name: BONNIE ASTUDILLO Age: 24 Years Date of : 2000 Reason For Visit: Back pain; Abdominal pain - ; ABD PAIN LT SIDE, LT LEG NUMB Arrival Time: 05/28/2024 14:14:57 Primary Care Physician: Anthony Gomez MD Attending Physician: Pam Gao MD Comment: Visit Diagnosis: Diagnoses This Visit 6 weeks gestation of (Z3A.01) Abdominal pain - ([id number]) Back pain ([id number]) Low back pain with left-sided sciatica (M54.42) Pain in the side (R10.9) The Pharmacy at [facility] is open Tuesday through Tuesday from [...] alcohol and/or drug addiction problems; contact the [facility] 28/03 Crisis Hotline -Text 6SZKS tg [phone]. If you received any narcotics, sedation, or [...] legal documents With: Address: When: Anthony Gomez MD [address] [place] [address] Within 3 to 5 days Medication Information: The exam and treatment you received today in the [facility] Emergency Department were for an urgent problem and are not intended as complete care. It is important for you to follow up with a doctor, nurse practitioner, or physician?s cleaner assistant for ongoing care. If your symptoms [...] so we can reach you if necessary. [facility] Emergency Department has provided you with a complete list of medications post discharge. Please inform your fender repairer/provider of your visit and for further instruction [...] can happen (more content not included)... Normal [facility] ED Patient Summary [facility] ? Urgent Care [address] [place] [address] PATIENT DISCHARGE INSTRUCTIONS Patient Information Name: BONNIE ASTUDILLO Age: 24 Years Date of : 2000 Reason For Visit: UC - Abdominal Pain; LT SIDE PAIN, LEG PAIN Arrival Time: 05/28/2024 14:07:02 Primary Care Physician: Anthony Gomez MD Attending Physician: Spenser Fang Comment: Patient Education Medication Information: The exam and treatment you received today in the [facility] Emergency Department were for an urgent problem and are not intended as complete care. It is important for you to follow up with a doctor, nurse practitioner, or physician?s cleaner assistant for ongoing care. If your symptoms [...] so we can reach you if necessary. [facility] Emergency Department has provided you with a complete list of medications post discharge. Please inform your fender repairer/provider of your visit and for further instruction [...] (R10.9) Currently (Z34.90) UC - Abdominal Pain ([id number]) If you received any narcotics, sedation, or [...] for Disease Control and Prevention May 2014 [facility] Lactic Acidon 05-28-2024 Lactic Acid 9.1 mg/dL Normal 4.5-19.8 [facility] Comment on above: Performed By: #### 2 [id number] ####[facility] (DEFAULT)[address] [place] [address] 45932 UA Cfpip6np 05-28-2024 UA Bacteria Trace [facility] Comment on above: Order Comment: Urina lysis Microscopic order added on by Work For Pie Expert Rules system. Performed By: #### 5 [id number], [id number] #### [facility] (DEFAULT) [address] [place] [address] 16590 UA RBC None Seen [facility] Comment on above: Order Comment: Urina lysis Microscopic order added on by [employer] Rules system. Performed By: #### 5 [id number], [id number] #### [facility] (DEFAULT) [address] [place] [address] 04241 UA Squam Epi Moderate [facility] Comment on above: Order Comment: Urina lysis Microscopic order added on by [employer] Rules system. Performed By: #### 5 [id number], [id number] #### [facility] (DEFAULT) [address] [place] [address] 44721 UA WBC 0-2 [facility] Comment on above: Order Comment: Urina lysis Microscopic order added on by [employer] Rules system. Performed By: #### 5 [id number], [id number] #### [facility] (DEFAULT) [address] [place] [address] 22954 UA w Culture if Ind Standard on 05-28-2024 Breakpoint UA [facility] Comment on above: Performed By: #### 5 [id number], [id number] #### [facility] (DEFAULT) [address] [place] [address] 44065 Color (U) Straw [facility] Comment on above: Performed By: #### 5 [id number], [id number] #### [facility] (DEFAULT) [address] [place] [address] Culture? Not Indicated Invalid Interpretation Code [facility] Comment on above: Result Comment: Resu lt created by rule GL_MAGR_ADD_UA_CULT Result created by rule GL_MAGR_ADD_UA_CULT Performed By: #### 5 [id number], [id number] #### [facility] (DEFAULT) [address] [place] [address] Glucose (U) [Mass/Vol] Negative [facility] Comment on above: Performed By: #### 5 [id number], [id number] #### [facility] (DEFAULT) [address] [place] [address] Ketones Ql (U) Negative [facility] Comment on above: Performed By: #### 5 [id number], [id number] #### [facility] (DEFAULT) [address] [place] [address] Micro? Indicated Invalid Interpretation Code [facility] Comment on above: Result Comment: Resu lt created by rule GL_MAGR_ADD_UA_MICRO Performed By: #### 5 [id number], [id number] #### [facility] (DEFAULT) [address] [place] [address] UA Bilirubin Negative Normal [facility] Comment on above: Performed By: #### 5 [id number], [id number] #### [facility] (DEFAULT) [address] [place] [address] UA Blood Negative Normal [facility] Comment on above: Performed By: #### 5 [id number], [id number] #### [facility] (DEFAULT) [address] [place] [address] UA Clarity SL CLOUDY Abnormal CLEAR [facility] Comment on above: Performed By: #### 5 [id number], [id number] #### [facility] (DEFAULT) [address] [place] [address] 93240 UA Leuk Est SMALL Abnormal NEGATIVE [facility] Comment on above: Performed By: #### 5 [id number], [id number] #### [facility] (DEFAULT) [address] [place] [address] 27748 UA Nitrite Negative Normal NEGATIVE [facility] Comment on above: Performed By: #### 5 [id number], [id number] #### [facility] (DEFAULT) [address] [place] [address] 86560 UA pH 6.0 Normal 5-8 [facility] Comment on above: Performed By: #### 5 [id number], [id number] #### [facility] (DEFAULT) [address] [place] [address] 86007 UA Protein Negative Normal NEGATIVE [facility] Comment on above: Performed By: #### 5 [id number], [id number] #### [facility] (DEFAULT) [address] [place] [address] 22296 UA Spec Grav 1.010 Normal 1.001-1.035 [facility] Comment on above: Performed By: #### 5 [id number], [id number] #### [facility] (DEFAULT) [address] [place] [address] 74654 UA Urobilinogen 0.2 mg/dL Normal 0.2-1.0 [facility] Comment on above: Performed By: #### 5 [id number], [id number] #### [facility] (DEFAULT) [address] [place] [address] 84545 Urine Source Clean Catch Normal [facility] Comment on above: Performed By: #### 5 [id number], [id number] #### [facility] (DEFAULT) [address] [place] [address] 14482 US 1st Trimesteron 05-28-2024 US 1st Trimester [...] Anthony Yeh MD 05/28/24 7:34 pm Technologist: [facility] US Transvaginalon 05-28-2024 US Transvaginal EXAM: [...] Anthony Yeh MD 05/28/24 7:34 pm Technologist: [facility] Urgent Care Note- Provideron 05-28-2024 Urgent [...] History Medical history: Resolved Ankle fracture, left (82527376): Resolved. 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 Surgical history: Cholecystectomy (38264963).. Family history: Anxiety Father Sister Diabetes mellitus [...] Use: Current Comment: Denies - 11/19/2023 09:33 Marisela Puri RN Employment/School 10/28/2021 Status: Employed Exercise 12/01/2021 Exercise type: Walking Comment: 1-2 times a month - 12/01/2021 10:44 - [employer] Home/Environment 10/28/2021 Lives with: Roomate(s)/Friend(s), Significant other Home equipment: crutches Nutrition/Health 10/28/2021 Caffeine intake amount: 2 cups daily Sexual 12/01/2021 Sexually active: Yes Substance Use 09/30/2023 Substance use: Current Type: Marijuana Frequency: 1-2 times per month 11/19/2023 Substance use: Current Comment: Gillian - 11/19/2023 09:33 Marisela Puri RN Tobacco 09/01/2021 Smoking tobacco use: Former smoker, [...] quit smoking cigarettes - 08/24/2019 12:13 - Mayte Benz RN 09/30/2023 Electronic Cigarette Use: Use, within last 90 days Type: Nicotine infused 11/19/2023 Electronic Cigarette Use: Use, within last 90 days Type: Nicotine infused Use per Day: 1-25 Inhales/day . Problem list: Active Problems (3) Depression None Polycystic ovarian syndrome . Impression and Plan Diagnosis Abdominal pain, acute, left upper quadrant (WDK64-QU R10.12, Discharge, Medical) Acute left flank pain (ERR67-GA R10.9, Discharge, Medical) Currently (BSJ74-SG Z34.90, Discharge, Medical) Plan Condition: Stable, Guarded. [...] Spenser Fang [Verified on: 05/28/2024 14:16 EDT] Spenser Fang Normal [facility] hCG Quantitativeon hCG Quantitative 44352.0 mIU/mL High 0.0-0.6 [facility] Comment on above: Result Comment: Post -Menopausal Reference Range is: 0.1-11.6 mIU/mL Performed By: #### 1 [id number], 5683635, 8572771, [id number] ####[facility] (DEFAULT)[address] [place] [address] Progress Noteson 04-24-2024 Flyer Maker Authentication Interface Message Text Attestation signed by [...] OMFS PATIENT VISIT CHIEF COMPLAINT: Toothache and Olla Teeth HISTORY OF PRESENT ILLNESS: 24-year-old female [...] canal DIAGNOSIS: Abnormal tooth eruption (Primary Diagnosis) [296473] Impacted third molar tooth [310734] Caries, Impacted wisdom teeth, and Retained dental root ASSESSMENT: #1 Caries #16 Caries #17 and #32, Partial bony Impaction with pericoronitis PLAN: Surgical extractions #'s 17, 32, Extractions #'s 1, 16, and with local anesthesia Pavan Lee DMD, MD Normal [facility] [employer] Authentication Interface Message Text Normal [facility] Coding Summaryon 03-28-2024 Coding Summary HTMLBase 64 QfmibycgXLc0hVe+PGhlYW Q+QW2JJCLmF35dpNPnhY4j V9AZSPgOSnooRIRVIKkACf CmbdTvPV9rcSQoHVTm IC8+PT4gYMAcDpmdoVRfn2 E3bRA3S00vwa8zIUsxlYW0 KEQbBmXmrwoop4dxsLc3ER cuNmluOyBt XGNzrJ92YZW1kG74Bj42qS EamKRrr7iwlSw8IuOqGWAm COR1bEweZUjmj9DyDYCyI3 5reMUns4H8 DBCyoEmpiSQuSvIzoPQ5rB 6qGDpknmdsd5csrzuuUrl0 mr75tENhc6V2cSG5I2Gkkk F4IFPdvYXc AcaljDMVmD1wjtdgo8bvhc llBpRfMSMrJRd5GLm8RMEb xSntCcAfTI01USL2KOMyel DkA9NoIPDq kTpkHiA0q6N5Kq0QY0XGMk irY5WXHEGSVQogxZQ+PC90 ji21B4NhIsyiBam8IFPnSD C6yQT0xL6d ZKCyLCodh1R5eIP8K7Wpyr Sqyj0yu5ddENPqICmgX89w cKJfu0I1FNTtwRR7EHSzdZ axEeKfaO54 Oyc+RYKwxXswl9BzUaldk9 ufz2sjiPk8YdtyVOMcmwXk uPviGSD5c4XuWn2jCZSlyP H9tBI7pZ7q GiOfWiQ6EEfvN055OvTzbN KoSxdbO11nN7UeiFD+PHRy Gwg2TDKseRidRZ8rY8WyNW RpbmctbGVm lWbiGB8uCNYykhdtGITccT 0wCJJdD5f7XgJhOeK2OZvd V3OdTOApmcvqFu65fQ0nYt JbLgN3KGja F3DmxcU1UGGceMZmJAzeLU E8A43ou6J9OUFiMFVzHAF5 yRY4fR3pqPkbcatvfRZbuQ sgdmVydGlj GMuwOUrkU082KTImhEaqIl NvZGluZyBEYXRlOiAgMDcv MjQvMjAyNDwvdGQ+PHRkIH Y0sRhtCHLt rJHaXJpiGf2neDlqhMasZR 2rGHDgfiqvGBMcnE4qHGGe rZUclQhtGR9xNBAkbxltx1 90RqCiUGJ7 RQKtoZSuM4FrzQ6dNtJtXO MpWMAmC4NtwXRyRFjdX393 VOcfYgQ7CWIxwfXkV8WsWX FsaWduOiB0 l3E7Dx4Hu2FxnqapJ8ApuP MsJpByRfakQWk3C1KhGbms dHI+LU68KMYwVY28SPo0DG F4mXcbAMdb DMUoI2ZmnG1nFyCkHYIgZF RkOyc+PHRhYmxlIHdpZHRo PAfpYHCeRgYdqNarZR3lUt 9yZGVyLWNv zIwvsBLcSbWsb2koBFFhZZ juBF3zrFzqO2SywUU7INFg l8s8Ib96U46uD3PfsLP+PG OhcQV7vIG6 lZ7nPfVfKfZ5LCwwT044Am PwpSBoCasvc0doh4ifxIb2 DcI6YWBdbbBnpEjnTIT3w2 YnMc62A23m IHdpZHRoPSIxNSUiIHZhbG xvfg1oyF2sQk2+PGNvbCB3 qAE7xE7nSqYrVkZ0LYlwN7 49InRvcCIv Yluwq7bfh2jutLe1MiZcXA ZfamTgwHljPTS0y4BvCy29 X5EqvXeqr1NrVqw2fo59fS Btv9Q5jDF5 I1QoYTYxuuqfpNHwoSldNQ 6bVAAeftqsTLEpmX2vJJVj J5g8XoXnYiC0OYywD9Ejjw D4OTZwlDNh ZVRqgZXCpX7wowxly9qujg gyGyKkQLKzSIz9XVi1NJVz xJvgTvWrNKA9GuD9OVY4nI NkkN8uhNwf uyvnrJ2uYex+LXH5gYOhoG QZMA0vYpamwGB+PHRkIHN0 bBbfJAuxKWUpwI4uALAmS6 n8DbMnKgS3 ENpsT4DjhoC4LUCpmPNwAM QnlWSRoI1qxsdvm8unehlc VdOyQWMuDYo9UJf5EHMfhB duOiBsZWZ0 WxJ2UVJ2mEPwgE0tsOyqif dlrR1kWmq+QmlydGggRGF0 FZk2U6CaWwg8DEJlbNvdWV 0ncGFkZGlu Qe8qxHeodYqnZN0cAKZdqx hxx681JlUej6pbBHDtsKHx DLqzTPA3N27vu2Y3BHGfUW LyKPQ4pLH6 iV4peZgunonboSRtaTblvv RczGxsBExsXSlvH439IVIp aNewIrOcKYd7D7YfEnv3EK HqeXweDC6x tPSsAVgsTv9ucOawiHwmGM 9dRSJsohicq143ZaZua8vm EOCltNJuZCkaIOI8X88qm8 P9YHJiYUOv OUK7tWP0wH9uhZebfmjwnN VmdDsgdmVydGljYWwtYWxp V743VYNsaOpsWuEuwAx9M7 GgLuv6PVRf hQfrGB4btGHoQUyjQc3lcJ hriIxoZR0iTMYgbbhlt125 GoDuv5yfCICsaXWeMIrnRK M2U51od4W0 RPXbYGDjCIS8eZS7wN7zpR lnbjogbGVmdDsgdmVydGlj MUcyCPiiU526VTIwrGctTa BhdGllbnQg JKwlLFb0X6QmEorauRI+PC 95UBElCY69tVFlwLNnu7qk uQf4SlDqXLMmIWT6kBmtUT glp0GlPEAr E48usYXjw3E9OLMygWlmkP WwTxMjiCA1iI0xDGpruhad z5vjofqvCylai4mfpg59zI 92R10vAPgv ZHRoPSIzMCUiIHZhbGlnbj 3jjV6rSf2+EXQucSG7hSR2 kK7fUQJjUiZ2DWayE452Zq RvcCIvPjxj t1kte5erwNm2CwH4MDUpet NbqXeyPRB6k1NyTp64E96b IHdpZHRoPSIyMCUiIHZhbG qwnu9mjX8k Ii8+DLQlpZJ7oXJ2zH4qVq WrZrR2WOyvS559SjUwoCIi SwrfZ85rU6ZapFN+PHRyPj q8WQBawCzb IX6scJNuQYicJt8sPCH8Yt XqLlJiWKarZ4EaEVFvxhxc bzlclNF5OHFhTPJfvQ40Va 9udDogMTBw nNUWcK9mwpwuh6cgfwzbSb AeHTMlTWv0UZx7DTFswZox SxIhCPS5PwV7OUQ0tYDxaM 1hbGlnbjog aH8bJ2IaMLXtsoklUj83sT 5fDyLjYvF0NGscIzt+Q1JB S6GIUqVeKTUHUDXUPdNaYM lDSEVMTEU8 V7KnLhn0ALOhhEddOU6znH LqKGwdDl3mzZfltQfcQF4t KHXfzlccKFOxoS7aRQGqvA GefLrxIB5n MPOskohnu857NjGrEMD5PM NcuQGwL2IreH6uIyYsUUWs ZHYsK9TfyPAvOKbvD337ZU fsOlL5NOKe vmRxV0TvGSAqtPyuVhY0d3 G5Fn1vDi3eTC1vUQs4AE64 PC30xPKxy8L8nXA5F6QnYF Rpbmctcmln eMZ7OMKsDCUndH88zFNoPG ttIx3vy1N7w378BFDqJAGn cV63Fn0daSwiCSLmxXLGtP 3ceulgh3jf hxmcBzNtRHEvUIw5DJh0XZ RytXquOgDaRHC0SiE1HNQ2 tPYqdL9kgNbbydxnjX8nSq c+MjYgWWVh llA6H2HiRyo9AIRqjMvpWY 3qwLTbJKbuDk3beQbjrZoe HP7pBYZmwpopFJGebQ9hVY JvdHRvbTog BI9yJWIpdunvj102SnVkCY W5FPDniROgS5QyrR9vNpYj BTKaEMNnT4ObiCBeFItwK1 02PNmkBhG9 QRKcoxXkQ4TkPHKjnMiqBh E2i1Y2Ll2ZYB0CFYE8Z5Qw Mmp0BOQczKxcEL1khPCrBP jgXm4kmWwd bHjuSJ4gAJXzcsdrKWFobM 5vSRJzySJijVkrYX0wXUYo tplvf826TlSnFGQ4YMJxyZ SfU0WwhZ6o JdOdTNTgNIJmW7KsgYAoYX puL551HQvaCoR6TOHyqsUy W0YqWKAexGpjFbJ7p9W3Id 5PUDwvdGQ+ HQ65jp22I3QaVicdZpu2AD CyJFN2jIC2zR6lGHTaDJra l2W3xKQ7F7QoxlLyzr6vw7 xsYXBzZTog G26afROle8S4JTRznUD3RF SioIqkEtAwnQ04Tkr+PGNv eUski7DzMesiu1rtk1lznS h6EwAhZAKo opRcwVlnVGI4r4OhMk33U8 9sIHdpZHRoPSIzMCUiIHZh zCxjmz6paR0mGu3+PGNvbC L1zXZ4zT1g LkKvLdS1ITfdZ655OhLqmC FqLtfkf5hat0lsmIb3WwXu DKUwloUwcJuqBDO8j2ZtCj 84Y3JblJmd t9QjJzm5mc54qVByw4L0lC O6C4HoVMTxbeejqDUrtFyr OY0qNHPmdsrgLHQkdS4kLU FkN5t1QiDc BsQ3CHtbV8VkyyG7QZDmyD WkAAOsiEZQcE5vcsnrx4vz fhknGaChGIKuLUc3LMg2XP FsaWduOiBs NON9ZqG0VJY6pGOhaG3pzD xcgkfotO1fDom+LKe0c4qx yFBuRC0lrGE1JH02DC73mU Kup1R8gST6 W1TgEQVqtqvcjfneiMX4OW XrEIAruK72Ci0gmQlhJr1e ULBuBQF7BKZnlFKoV9ZtuV 9yOiAjMDAw SACnV7CwjEQtOAfmS354TJ fbNsT4OZPsjcXpS6DhSFKo nRjmWuL7m6C5Vf8XRA76KO 85WD86aVYq d0Y2eLO9N7DaOUUsiajkzg rcpBF5PKPoQGGcaQ29Xb0t uZerCj6dMOGlZNO6QLWsgY DbA2OteL0k OhQhUFIdQDEbK5QoaUZwVQ dpE203WBpsQwS6MOZhmyZz C2UwNYPwzAufJoJ8p5Y2Zl 9YOw80JI24 YU01mLOmw5C1pEV4A2AzRF RtzrxhzwuzkNG1BKEiAFRh vE66Ap4zeYenLi7dDSUmCT E8CMGidUNb P2AwmL5yAmYaHOPeEBYvA5 PgoRBuSYloI080IAnmPsA9 KJIjynJgX5DkYWAdiFboCk I6r6I2Ci1P JEdghox4A9TdAdqdeRK+PC 96CMDwKF05mJVtgMYne0ih tLn4MuJpSVFuSRU9oUfsQX sgu3QrFZLf Y29 (more content not included)... Normal [facility] Progesterone LCon 03-15-2024 Progesterone LC 1.4 ng/mL Invalid Interpretation Code [facility] Comment on above: Result Comment: Foll icular phase 0.1 - 0.9 Luteal phase 1.8 - 23.9 Ovulation phase 0.1 - 12.0 First trimester 11.0 - 44.3 Second trimester 25.4 - 83.3 Third trimester 58.7 - 214.0 Postmenopausal 0.0 - 0.1 Performed At: [facility] [address] [place], [place] [id number] Sarah Beal PhD Ph:[phone] Performed By: #### [id number] ####[facility] (DEFAULT)[address] [place] [id number] Provider Orderson 03-14-2024 Provider Orders [id number]#1.[address] [place] [address] Coding Summaryon 02-20-2024 Coding Summary HTMLBase 64 HpjkybvdFOl2cOq+PGhlYW Q+XU8PHVJaY77mvJPhdI4l V6IGLGvMFdruPOFDTTdPVs UuodLhSU6paGRpEZIc IC8+TP7lNUGpKonstQHus4 A4sQJ9Y62ksc8aPRzkkUH2 FNKqLyWheadku6lehNh9UY cuNmluOyBt ENFtaH97JNU2yC04Rz71gS PnlHTpr4tgtLp2KaLlTNTz BKR4fMugEDvdm0GeJYLfY2 7aqDAif5V2 YOEbuSheuULjCsXcoTW0fC 1vKOgspvkpl6ppdtvfOjo1 fo43nPFpr0U2aFE3A5Kgcw H4LHFliNSs DskvdCVIvO7sveben9jnmu aoJaCxJQCkSMk2LSo4MBBu oInsRkZxPJ71MSW9DYFpcq KoF1JuWCLq lBzrSbB0i3O7Vs3OI1FSJr wfZ4QOZEBNUDpjlTF+PC90 ki03E9ZlThzaUay5ZTVhWW U0yIV5uW5w FNCbCIulc2J1xIG5H2Ilrr Waiw1pf4rkZQFkMXapP96i lUUkg7B3LOKspRO2RHAqeT idHqPmwS83 Oyc+EOPbbYvkk7QzCveny7 jyk7xkcIi7QvptGOWyjwVn mDioDXG5w5SnHx7fAXNsvY N7kYR1vP6h ZnQzVzA2IMrlP985FuJjvC WdOhvnW10hE5DesOI+PHRy Beu4YDMnzKrfGE9gE3VqAG RpbmctbGVm oWscCL6aSMUxnwtuUZOpgJ 5oHYRmM3u3PtNaTqD5JTaj U9KxKPEnjxatLq41yM4vUs OfPjH9BXmo Z8CstkX7DZIjrQNmVNowWM F2C91td7Y0VLLhSGImUAI6 zYO6jL7hhZeggprntHGbpA sgdmVydGlj LJciHNpuN230RRZycXdoBo NvZGluZyBEYXRlOiAgMDYv MTcvMjAyNDwvdGQ+PHRkIH Y8kTkqJMXx tGTtZCccQl8mcZjqhLhzEO 5eEGKmpcxrNFDojW4bXHPl qTAgjZxlZS7kCYKjegkyk0 07GxQbYSV2 LVAagCScM5DklP2tQhYlPQ ZzFUDlA4AquQDzVAzcV948 UCzqTyJ7HGQpkuPsW3GaQK FsaWduOiB0 e3T0Zj7Em9KysucwA8VgzJ DoHbMdFpveTIz7M4BnQqdk dHI+ZN62HMHuFR15CKw6YC M6hAbkTNoz YQXgK3IrbG6fKpJcAYKqBM RkOyc+PHRhYmxlIHdpZHRo JHjjVCQxWiAqtQqfQT0sIi 9yZGVyLWNv nBwweFTzPaItf6xgVHEfXT mjEN0mdYjpM7MkzGZ5WDSu h5d2Uq54M36bK9RvnBJ+PG IwnDG8qPC6 qK2cNzYfWxM4CMuuA954Ul XopASiZhyoo4iom2iumHc4 BtF6AARdnoIbcBblOVV2u4 JyLi16D82m IHdpZHRoPSIxNSUiIHZhbG obdp5xbD6aKf4+PGNvbCB3 mWN9uK7mKlHqZuY2KKjeT5 49InRvcCIv Bnsgn9uyq7mwcRx3PiLxIO CljiRtrEwkPZH9z4GxPm10 B5EnhTzpl8OmVcm9rh24mI Yck1D9sYZ4 G4RqSYAjfmumdXIkpYlyRG 6bFKVgbmkiMOXbhS6qAAEi J7v0RjUgMyY7UYsyB5Shyd Q3UMAtiUFe RPDyoQYFfC0qkgcpq9wpos jqUoGoSFCzOFy0YWm5NEOh kWyaGzTaLCT6LaK5BAT4nX LzqM0ruKwv ujqprN9uZdr+RQF5hWIelQ FWHO5wEeajsTC+PHRkIHN0 fUlzQEjnGVRiaU7uFTMhH9 u0PoZkTkO2 LHatR7JbogY0JVEkhWIjGG WyaUZSlT1hofspj0jeqwok PaPcUOAsHJt1LXm8AJRcpA duOiBsZWZ0 ZqU8ZCR3pVJguP5ryTdwvk snkE1yCoh+QmlydGggRGF0 XKi2M3RzBsi6NKTbbTqcYE 0ncGFkZGlu Qw5grAdqyAjyHU4hTOGkpq ymr416FnMjp1dkJRNflPLw QLhsJEC7B69fz5P4KAVeRX IwUPG3bCH2 rN6agCqeypgkrEIlbMppdg LdyPruHIsfASxiL980XAKr jUppTfBuHNk7I8FiDac7IQ RvfNlrDF8q nTKjHBljWv5wkVsksFghEH 4fJKUmneekf102SxGxx0pf QFKnsAYeGJuuEFB2O36ts2 P3OZSeWEDt WBR7qSZ4fR1bdVhuqtiyrU VmdDsgdmVydGljYWwtYWxp O005ADRhcSidInXcvAc0F5 HgUfs5XCTp oHbfBG2cjGToQSukDb4cvM opuFaeUG2tLVGpwvpmx100 GuCwy4faMYVolKJtLIiwGM D5G28cx6U5 HRUtLWAyWQF1jFF1wP3qmB lnbjogbGVmdDsgdmVydGlj XBbqPOvuL643BRCelEplEv BhdGllbnQg NSnnTKg6Y9KwXjogwNJ+PC 73BDWtZQ48lHSbsAQkg9sm yHl1MhXxGTPtFFA1vSyuXN ilu1WgBNPo H30izLTbf2Z9IFRkhRxzwT MuRhGyiKQ8hH4uNHaqokfn a8wksbzhRmijb7ycep79xA 47N84bUIit ZHRoPSIzMCUiIHZhbGlnbj 6aqO9yUe5+GLEkvDY3aPT7 wJ0iXGMlFiX3SRabA914Yb RvcCIvPjxj j1yzp1kmlDm4VjP9RWUchj AwnPhyOYL2b0HiBc27V74s IHdpZHRoPSIyMCUiIHZhbG whve0hvY1x Ii8+UFEcbXU0rDY3pU9yMo EuUgR2KTfrZ582TpKkzYQg QelmY37uA5GwuUN+PHRyPj d0CRIpjHow CL7eaDRiRFbuEl7hFZT9Fo OqMyHbDUdeH7FiBKFzjqyc pvzvhQB8NQCrOBAywK68Nf 9udDogMTBw jHFWxG7fxtiyv2scjcgmQq DkVCOuFOr6CSt1QOMomOwt SbAvYPX3EqH5SUN5jXLqpK 1hbGlnbjog dP7pF4BqJHSwodajQk93lS 5gBnDjPjM7OHnaSlx+Q1JB J6GBNrFeZUQNTFINNpUtZD lDSEVMTEU8 L7VcJgi7FXGvzJhoPV2ojC RxXWbxTh9kyZsbeWnkTL7i EOEsuqtvEHEyyT2kDTCbgR CwgPtuEA9f QGIxjwbrd520LxTmLNF0UX ZqtGPvJ5LddB3wJpHvKNEx KJIhX6EsxSSdVJpbB956HL dvRrN5VIHj teIiY8SiOKJnwWumEyY7e4 U6Cd8gEm8cPN3hNIu2FK94 JP53oVRmm9K1bJV4X2ZkGD Rpbmctcmln zOK2CBYjDVTpgF11zRXwAW btCb9od9F8i271DIVpUGXg oR37Lv4nrCwuZRZmdLVVpJ 8pdslhb2gz owjyGpHbKCMrWAp6XMt3DQ SdfHsjTeGuHYP2QwW4LWR1 eCXmvG1ygIiyyftufL8lHk c+MjUgWWVh rcU7E6YlEri7HOUbzWofNW 4ggBOtVOvvUo9yqHpmbRxf JD0nOIGqdvoeNKYrbP9qXD JvdHRvbTog YI2gXPWfihqso916HfDiNO I3NLMaeWWyW6PzaZ9iReJb HFSsGURcM6FjnOZvUSrjW7 75HAnuDfB8 AIQoclRoL6PeRCYanVxoAu I4d2Y1Wm9ZTC3NYUI1E8Mq Erd1INXzqZpbRY4epRHrQR zwMf7kiNpz hQdqTN5oCALzhvdxYWPijW 9jGXDccOPiyJtrDD4mIUWt ldayb632VrFyKCY8XCBpuX McC5OuaT3x VmOlGKEsCRIhY3CtpLEuGU hqK941IRmsHrS8XIErkgXg W2DrOAFboIxbLwG9y8T9Xz 5PUDwvdGQ+ RK23oe45T6QzImrnGxx8XQ QrPXG1eCJ2jX7rIGHmMXpx t1L8aID6H0XqssAhbq0nu6 xsYXBzZTog R78ygMRyt9G3JXQqnUV4IB XiaFyoIeFjvC83Fmm+PGNv yIfyd0CeOksxw3eui7pqjV l1AdAkWAMb nmLrhHgvFJK9k6LaGs90D5 9sIHdpZHRoPSIzMCUiIHZh wBgfzy3hjT8xKq4+PGNvbC C0lDN0yX2y BxYfIxP7NTdoG787ZdPsgS CpGyyvu5qqi6nruMn8VtSr DXAvejYgsQmcDCD7w5VsOd 62S8GcyRba f2LnKgg5mo80pVPjx5K9wB I0V9LjRUNtnfdjuHArbGbo IH0hYUJdzneyKDPkqH1sFR XdD9h5FlNa JuV5ZDueI2CqrbE5HJDvtJ NbWDOfxFQDqC7nwbhoc2re bvmcTaWkIUSyPQp3CPa5UI FsaWduOiBs XGW9OlT2QCB1bHPnoW2okE ugaaduxC9zGas+XNs4f7ai vNFvVL0ogHQ9JG36LR52uC Ixy6B8sZE5 T2FcMZVgqiplugxcaTP1DO PtHDWamL20Cy7axQupEn0w DOKoTCT8YZFpqHQzK3NdhZ 9yOiAjMDAw HLTkV1NtiDHxHOmnY527FC giKmR1DMShgcWpU3RuIIOq cFgzXsB9q7E3Pm3MML93QY 86JZ83jLVw v8S6tDW5M3NlKPPvitmybs mvsYF4PDJdFPQlqC66Ia2q dUmsTf4tHVRgBPS3BGEthO HsH3JdmF3p XuPhJXCuQOLsI3WunYCwUO xfG190MQboJiQ4UMLizpEu R4TxETHrbQgzGaG5a4G4Kx 3IIm29PA97 UA73wVPkr4G1oWZ1R1ZoUT AhosrizaxbpPC7JTPrIVQz zO37Ak5liKwrPu1hJDLkPT U5DSJvhAZq Q9NcuJ4iKiMsOBCwNMArL1 OjuWHwUZszE248HXnwUeX6 QIDpccYgP2WbKRRvzMffEe A5e5P9Ll5J YCswrvb5U7WgGscubDW+PC 92HMQpUY85sPAihUEap1bh eYs6ImAfIJJxDVO9eYamJZ wce8YgGSXe Y29 (more content not included)... [facility] Progesterone LCon 02-15-2024 Progesterone LC 18.8 ng/mL Invalid Interpretation Code [facility] Comment on above: Result Comment: Foll icular phase 0.1 - 0.9 Luteal phase 1.8 - 23.9 Ovulation phase 0.1 - 12.0 First trimester 11.0 - 44.3 Second trimester 25.4 - 83.3 Third trimester 58.7 - 214.0 Postmenopausal 0.0 - 0.1 Performed At: [facility] [address] [id number] Sarah Beal PhD Ph:[phone] Performed By: #### [id number] #### [facility] (DEFAULT) [address] [place] [address] Provider Orderson 02-14-2024 Provider Orders [id number] 21 [id number]#1.0 0OTGTIFF [facility] Coding Summaryon 01-19-2024 Coding Summary HTMLBase 64 DzrvrjpuFAt6nZv+PGhlYW Q+AK4OXRWnI23vlWHzqP5k J5OKOBpDCvxwSPBEHHxINq ErdbEmSG3maREqPFSr IC8+TP3yDNSuNynxzDEry0 X1pNZ1L12yxs0yREoyaYL8 CEDjThWdbgqpr0qerRo3QP cuNmluOyBt OLRqtX88TEV4uD43Nc87rM QdhXXaj6ljpGw4McZeNCTx XAO7uWmzGPbac8XgHZEzU0 3vwEPwc7F9 VHOteRmxsDGhQkBvkQA9jW 1cQJhotryzx6hwqsieFyj2 jd79qSJhl7B2mRG1U5Takb B9AINtyEJt CiumkGFRfY8vcgyab2znhq wbVvNaNILcPNu6SRi4INUo xHhhDgYdSM65IKU6VMQzet BaG4OfPXFd mAscMgX7h7C0Bs4CP1QNZp mrK1QORSPEOWfkvUZ+PC90 ek23W3DfTctdUfn2JMOrGZ U2uOX5tK4h FVBcIRyse5R9pCA5N5Qnuk Bkvg7ri5qoIXReCOzzS35w pVIqx9F4XJVjmZJ7JUVrqW syVzWntU64 Oyc+FAPepXsqq7WgXspst2 tjy1wsjUg4JdytVBVzjzDq kDmfXCM0o0IoVl3sQEJjlC Q5uPD5zX3g UwXlXmD6KCmwW409WhZapO JuMfxlO83eQ2RwxGA+PHRy Xjs2KNSvbKtmPD4iM6RxDE RpbmctbGVm dXcwSH0xNBThehweWEJmnA 3dFWBuO0h5PkQiYhA6YTmc L4BtTYShbftqTp42aE8mHz EfVxN1KNea H8MmuqS9DAKqrBZiFIvnKZ B0L26ui3F1ORDvGKXjUYO0 mVE8nD0ugZevosxtxIRsaT sgdmVydGlj TRnbNMbcK096COFslZcjEi NvZGluZyBEYXRlOiAgMDUv MTYvMjAyNDwvdGQ+PHRkIH I7uOujOIBo cFWvHKvtUz4jbIeniHgsXT 7kOHGordmyOOAioV6jPXVl uTOmhXfwNU0sNVZlyrohs9 05UnDvAOE1 ZVEyuSUwY2RkwV0pPgEnZV QpBDUeT8PxrEJjJEmiO827 ILrmHaD9KHLpusTnT7QcRG FsaWduOiB0 o0I3Xl6Nt7BktmulO0ZgtO KfMmBlOrmeHUc0E4FqMaig dHI+VN93GYDaQP19TEw2UL D0yRzqLArw OJXcS5WblU3dKsQyUXYpON RkOyc+PHRhYmxlIHdpZHRo JRbpTTClYfYryLydPN4oXc 9yZGVyLWNv rBffmDLdDaRga5svPZOsPZ oaMY7gyJxqV8ZtlCP6VIHr f8v6Ju11W38xJ0KagIY+PG UyyIZ8qQE6 cR6yBlMgKqW9FFpuL643Sq QmbVObPiduh8yti0mauRj2 OtV1NVJiafPqgBfnGKB2y2 DcTc06D03e IHdpZHRoPSIxNSUiIHZhbG qrmc5kjW4uUo7+PGNvbCB3 oKW9pM4kOsYdJfR9DVnwV9 49InRvcCIv Vjmrf7ikx1cdhKo8ZsKoCP YjusGqzUsnKNZ0p8MzYo34 P6KltXnoe3SmIfg9jf59cH Ibx7P1bHY2 B9SnIIPfdqaxuIRsrEiaZR 4rBAXepximYUQrvN3sAFZw O4i4LvDeTsO5CNtmH2Glfy A1HJNaeSBw KMRvgIMRwU7jyzfqu3rrbb pwSiSmSIJcTOi7QEc0ULJz qMswGkLoZNP8LuX6LZA0tP TwtR4goBxi mczusM5hAwn+GOS3yOWghE KRJV0tGamaxPM+PHRkIHN0 sUpqZRoaIWDljR2vOJBmZ8 v0NtOsBaV9 VClsS5IgvgE2UFQfwMBzGN BtzOIMdF8ckejoi5kilqwc GvEbECBoVOp4QLl9PJOokK duOiBsZWZ0 EkH8GAW2zFCtvK7iqSsrij vfzL0lGii+QmlydGggRGF0 UWl9L7RiNhq1SLFzhXsmKQ 0ncGFkZGlu Ui2smZloxQwiUR6aULJueo tsq224MuArb5mdMXWspCYr GDkzQAC6W40pt6O7FJIiTS QnHIE6hCI0 cX2qfLwotxuqhTNvoPvztu QsfZhoJTjlDPjmS932FFMp lCjvUzYvMMv6M9CjKub0YK KlsMrrXT9j tRMoPOgtVt4bgRzvbQfjYU 0kJFGaojgok257ToZnt0hy IGUzjTMkNNkeOMI0J76dh3 F9FQHtQGGd ORE4uXC3dC7slCxzkinsjF VmdDsgdmVydGljYWwtYWxp P909XNAxiNgmHtXxqZn1P8 EfBkl2VZXo rUjmEF7baXTdAFlgEz4yhM ialYibXM0bICYfwtuyt554 EuSac3vmHKUocYErSQwxGP A9X11mf6D6 VBPuIXIoWAF9xPT8sQ4oaY lnbjogbGVmdDsgdmVydGlj VLzuCWohG093NEFalNjoEz BhdGllbnQg ANbbDVi9Y9XaJuevxPQ+PC 44OPXaSF09nRHozNLbk2ey xGq7XhBaSQJtOYQ5fLjeJZ nsc5WgIBBp T21wbFVlk6J5SVZerSexuA KeKmJppEN9nE0mGVcqfhks f9igiulmNfykq8qvjb99gB 62O21rAQzf ZHRoPSIzMCUiIHZhbGlnbj 9hyW1wWm2+SALbrHX8fWY6 eG6bAPBcWeM7YJysS055Nj RvcCIvPjxj m9vjn6effRr1TzM6BDRexe BamLgqHBR4q4MwAw21E28v IHdpZHRoPSIyMCUiIHZhbG extd4udN3c Ii8+OUQrrJN4dQX3eD1rVd GsYjF7EYynV014YvWcpSDu DbidX81pJ9CutYT+PHRyPj u6DUEdwSjb MJ7ltCOfDOleWj4mZTN4Rv LtDpRtZEeiE7NxISEdieuv gyzedMP7APNsEDYzyY42Iz 9udDogMTBw dSYHpT4sqjptr8wceguxWi ZsZCGvTBe7GJz0CXKapWcl OuAqNLG7DsI0NYF7xXIwbL 1hbGlnbjog zH7wG1KeBDQvyahqEw97wX 1wMlTkDkF5EWfuByi+Q1JB T8TXLbAyUTENDIMPFqXdNT lDSEVMTEU8 M6LpCnh6IIHeyIduNJ5uqL YeUTzsNc0kbTsaqNlfFW6k FOMarpocTZCqkC8jXWLrhF FllLxcTK5x CMCjocbjd160YoSrGOC3ZL OffWLaT9YugJ5zOuTgSPZi TDQfI2WqcFOmRKofM217PO rtFwJ5CKZy fkJiM7QyGBYewVxwVcQ2i2 L2Pb0iAf1mFA8gWSn1TW66 CO34sFJhi5T9jRZ5D8JjQK Rpbmctcmln fNX0OWKvUXCtpC93bFKnRA eeXl2bg9X2h230RRNpQBPm dK31By8qiGoeOQMmaGNNsV 0ltznfb5cw wubiQvPgLSWhZUg1CCt2PE WilAgwVcUnKXA9DbM5WVC8 eOAljD3rtYxdrctpnA7hDq c+MjUgWWVh pxT3X6XzNny4TDZpcTwhDV 5ajRDnTRnfTx6ooOrbzSau KO0oSYDyeyadRORjaS6qBW JvdHRvbTog FB8zPKLfkauke253XgDuZQ O2CAKlmNAbJ7JbgQ7hUlVi DZHnRZWjO1YioLOzESqwS0 28OAcuKnX6 SEWuyuAiG3DxWAYxlEnjKk Q1v8R5Tb4OTG3WMRU4A9Zl Syd3ZVPyjRoaOH3zxDUcVP yrBh3jzRpd oDtpRQ6aIXWcrmqbXRWkwV 6iNVZssVRfvXpiXP3nSNWo tmtru886McEePVQ4RHLodS PhS8VpqC5b GhPrXDQdIYSjQ6XbsRFeUK cnV668MIenImP7NMLuxyBz C1JbAKCjrOxzYeE2k0U2Xd 5PUDwvdGQ+ ZZ47wc83D0SeXgxgCkx5HN ArWDE6cWN3vN3bEBTmDDak f9C5eOL5Z7IxoqQlnd4vs3 xsYXBzZTog L68itKEpd9F3DJUjsNF8NY TvlGvhPwOrwT96Fzl+PGNv iMmvx5BuLfxqn5dam7qjiP n3XoLqAUEc qdQkzLhwCIT8f5JsOk64Z7 9sIHdpZHRoPSIzMCUiIHZh iYzgeo9mjH2sGf6+PGNvbC X5gUT8hV2f FaUbArA1ELjxE791KjYzlT DfWdywi8hxe8umzDr2VeZj OHRjrdAepAriSHD3g0ByAd 44Y3QgsKzi m9TjWua4kb03bNEbk1K1wX W1L2KaKPNtnxzklSKznGwo NI7aBNInoruzNNTpuJ6wSZ OwN8z5PoEq DzT6CMkgA9QelqI3AWNilN ZqVIStxGFEmB0qgnfvq5dc fdjsMlZvRWNlRUw1RSh7MK FsaWduOiBs NJB7CiA5TRR2fZKpvR8xgX cxlxjtnO4wWph+BOo2i9tf dWDdHN3woDO2QC42BE86pO Sgg0I3qLC5 S0OmHTYhosnzxfyfzKB0AZ LxXPBvzH24Sw9xmMmpDn7n PSUuFJP3EDPypDZiL5SenP 9yOiAjMDAw HBXdC2GbiKRdJUzgX828UB zhBxE6OXYoraSqH6PoTOEd hTrrOnT7y5R6Iw7DJU29MP 24HP34tMWn o8B2rPN8O9ZlOPWcowxjbc najKE0PPRlDJPnhV32Ps4c kNcoQy3dNJDyEXB1IHQwyF GuT9AfzQ7a UpAdCUQxZEFoR0DuiFXrZL eqG204DTaxZoN2VXHblbRf W6MjCWJshObgYqV7o7H6Pj 9JGj29YR56 EP34nFLwm1Q2gVC0S3LkMW ZdpoqvfmbriMB6HXLyHLDw uG13Tv8kjPgzIi7qZNLaID G2TAWrkIAb J6YcdU7fYjWyIDPlJJFgC6 IpcFOsXMdtS740MGwmQfU1 PHBomrHcY7QtPJXrmFrkCd Q6f1S3Db1S TCqsmow2E7KrUgrxwAV+PC 81HCXyJA75vFEdvRLvd2ro kZz4IbXhZZLoRDR8nPqvLH kfk7YkMZBi Y29 (more content not included)... Normal [facility] Progesterone LCon 01-18-2024 Progesterone LC 14.5 ng/mL Invalid Interpretation Code [facility] Comment on above: Result Comment: Foll icular phase 0.1 - 0.9 Luteal phase 1.8 - 23.9 Ovulation phase 0.1 - 12.0 First trimester 11.0 - 44.3 Second trimester 25.4 - 83.3 Third trimester 58.7 - 214.0 Postmenopausal 0.0 - 0.1 Performed At: [address] [id number] Sarah Beal PhD Ph:[id number] Performed By: #### 3 [id number] #### [facility] ([facility]) [address] [place], [place] [id number] Provider Orderson 01-17-2024 Provider Orders [id number] 02 [id number]#1. 00OTGTIFF [facility] Coding Summaryon 12-21-2023 Coding Summary HTMLBase 64 JbiruxzeWVt2aId+PGhlYW Q+KY4ZOSNdB39ooRNigO2n R0REUWkJYihpHHIOWObFTd SrzqMxGJ4vnKUtQXNv IC8+TC3fXXNjFxvbwMQsb7 Y4jDM4P38dlg9rCBnmgZM4 RLMkJnFhvllnq7hmeEm7DV cuNmluOyBt LXFrtA55KPV0pD73Hi27zR FpoTErz4kdzDk9LkPhXAPu IJA4yEjaTZwrv8KqCDPkB7 4jkJKww5K8 QSJswGxsgXTpPmDeiEX9dA 3gSXrhpwdqn6xxgxwyEsv1 bb93aGLhe7R1xYB2U0Tskx F4KODzwVJr LxqziFSTqD3jcvsye5hqow dtKkQmURDzGTd7PEj3RSLa aPedYxNrET29HQJ5HGHzjd UkW2JiZAVc nJtmHzO3o1H4Ub8KN6BUGx teO6MIHYPPMQudoAA+PC90 ug42N6HwAgggMkp5XQPhAM W8gOW8uD2b VJDhSRzet6F0yAE7Z8Krqe Bpbf5up9snNJEpALruZ47t vFZxa7D4VSOetXK4WHYhwO sqFrRsdU88 Oyc+FLLorJhyt1NiKqroh3 dhw7jdgNn7MbrxAYXuzdMt iQldTIM5i7FqEi4iNJNymE O4cAH8xG4b VkCoUpD5KGmdU134GtFbfQ XxFocfZ93vA4CzgHZ+PHRy Zdb7UUMzyQwcAA8cV6IsKK RpbmctbGVm nWfiWU4vTHGrhmrdALWhiX 7eXTIsP3f5ExEyHdS1SRln J7PoNFAfrddoEq82mO0cPp LoHwP4LAvq X6KjblD1RBCsyFZsBEosBP J7N20nx2Z7YPXxNWKdVAL0 hCT5wP0hhCqibzcssNZfaW sgdmVydGlj IYggVLdaZ955UWCshVrpWa NvZGluZyBEYXRlOiAgMDQv MTcvMjAyNDwvdGQ+PHRkIH X3cSihAJYz uMTfCMkhZn8oaEmxhTljTT 5vARCmecugCUEnxF1mSTSe gKTooUajKR4eTZHstcttd6 37JnDuBVG7 JDAmgOCiM0ZevJ6wGoNpBO HtBODuJ9JuwGXiHNpeY678 PJauFiM6KGIuaoNaE8VgBV FsaWduOiB0 h5L3Dz9Kq4OjnxwmA8CaaN UfAnJuOptaHBr9Q4XqKrnd dHI+PH92CLGcOM19PRj7SK A0vEawDQza CUHgI4FmwE9eCbGxWVWzRT RkOyc+PHRhYmxlIHdpZHRo YRlhLKVrYeDmnOvmFP8xZq 9yZGVyLWNv eXpieSDpEeEbm7rtLECkXU haON3leZguD8OwmEX3VJHy g6l5Gp30Y84fZ2IftEL+PG VwyMW8sXC0 cJ6nAuAnEhJ6GZlxI193Pr SflCJbZssyz7wam8bnxOr5 BxB9XDGvodBquFudVHI6n5 BnEi89E50p IHdpZHRoPSIxNSUiIHZhbG hwoj7soL1cJf1+PGNvbCB3 bIM4xP2xLwAdTrZ2MFzbA9 49InRvcCIv Yicxz0gdc9kwmGb5InPaUG EnyrBceJxjNKZ3a6XmVw75 Y8UafUkoi4FpFev8qg89qV Xmq8Y3qII7 K2DhYFXkhuiodXDyaHrjOJ 9lFWFalpwaLQBkyM8rJTFd X7a3TzYqMcN7FPvuT9Qumq E3WPGsxWHz IGCrqBQVrF0sjdrse4hzeg heZcEuQBBwTRa1DXp9DBPl sPrvRmTsXQA8RqT5EUK2pU ZjtZ3chGxi dsnwcP1lIwp+WGG9nMSstF WUKZ8aYtnhjOE+PHRkIHN0 mKstGAzjJQZnnJ3iLGBwA8 e6NwFqRkO1 HKenD9MzerY2OUMbeXGvOM ZwwDEJyZ5iollft7tbuimy PxYuJDLpJAm1VQt5RYEjhL duOiBsZWZ0 FeU3RPA4dNZnyW3weAlbsk lcjH3xXyj+QmlydGggRGF0 EFa8L7VhMiq5LMIwuWolYE 0ncGFkZGlu Nu4boJltbQevUE0tZOIwgi eqc799KvSqa2ufGAJfuVXc OEmvUTG7K33xb0A0HBOmMG WiEYP6nZG6 vK3uuHdlccslsWQhzRmlvy QcjHlwVSwwPCmjQ195EFGi nHhdApUkDKl6K7AmAwd8IW UesOxnWG8j uVDwVAtnBw9vyNifwHjdQR 9oZDMiazbol666YiGyf4vn GJJvjKEbVRpbIJX6E99zl8 J0NRQjNPGn OUT7vIV2xR2miWmmpjhquG VmdDsgdmVydGljYWwtYWxp W547ZHDvkVysGwEsaJw9Q7 AaFsw7IIVq qBxyWJ4mkZCyVAlxYp5hnN binHyxQJ5rVZEzgcdzp116 SkJzl9irKLFquKBhHAiqSF H9V50qw0O8 EPAoKUIuIQK5wEH2tJ3ulR lnbjogbGVmdDsgdmVydGlj OKbuXBbsE459HWNagKrnFg BhdGllbnQg OUaaGIz7L5LxFlcozMM+PC 91ZJZwXJ48sLNdjJIpq5dm zUv1QgUnVTDbTIV8gXyuZK fwz0YoCNMi X00ccIRdi4L0YLKykVeilN PnYfVtjEY4bD2nAAttqdzn a1aalvvtGopko9rpht61cB 96T51fCKdg ZHRoPSIzMCUiIHZhbGlnbj 7tfH3gZk1+PTMypWY1mVS6 wB6pVCPtRfL3UNhpB170If RvcCIvPjxj w6mna1jafPn4VzB1IUDyax OoyQagCQU6l0EmXu89A26q IHdpZHRoPSIyMCUiIHZhbG uwnx0czR8w Ii8+ZPWxhZN0wMV1nQ2vRk JoOiS8UWnbZ765AyQznCTv DnoeH56aY9JhmYH+PHRyPj q0TVKtePdr LM8lqVBnOOzmJx0fFYA2Kh EgBzCkHYatQ6XhLOCyllti vvtwsBK8UPUvOZEryE42Fg 9udDogMTBw wONXyV1fiyvqm1atkvimIb BxYMVxMMm6OVi3GDZbvNhz ShJlGNX3LgN5LAZ1cEDrrT 1hbGlnbjog yN9jP2GuGDUxvqyqDo14mY 6uHnDgTdI3EPllVoy+Q1JB R1XFAnSkTZKXFURNFjIaNB lDSEVMTEU8 M6VfRzw5BXAttNdcZB7wfL RkRRpyHy5lsDhtoBggVQ4z KEAjnbuqNRNyqF8aBDDieB BsqGsaZZ4r VIXucstum763OaPdXWU5IQ QbpCNbS2BouN2sDeNaLWXj MQLrN3RyuWOyKBqtG476GZ feUpO0TZWi ieOeK2NxYNSgtQoyJjL2d9 E6Fk7iYx4hZP7gNGt6AR16 AC01qFTuc0O1lVB1F3PgFU Rpbmctcmln nNL7XFIuPNRhpZ65oODvUD rdTq3op8U4z274PCYlDGHq hX61Ff2smHxkNJBpaFTBjT 0wbaapn9jv bhqjIwZbEBYyUFd6MUp5EL FmiUnuHyLhKAO9AvP5YHZ0 tCWvmR9zsQvxpwcwnM7xXu c+MjUgWWVh xyD4J7QwKuz5YINiuMdiTL 6zfTMwSOqrXy1kmHttzTvl FB8lOZRpouhhQDHwfK3nNW JvdHRvbTog KI0eFFIsiridm174LzOjRJ G9EDVzjFDhO2VquR1xVmMk YEWuNMCrT8ZomNOrOPwlN6 63AGggCbA7 EBCpvzUyU0VfJHUowJaiPo P7k5G8Gz6YIP7PUJL9M8Cn Fsu9CIMooXnpKR1zhMVsQJ ltLy9gnQat uZchOX8zQUEuoktyZQSmsW 2oPCKdbXRqdQpzYB2lXPLg breid594UiJxGRD9KFBtcT DcP6MqpL2c EsFfSYQfCENhL0ZmrRLrVD ttT490KUbtJrA0OKQjyrKk W4YcANNytEymKnY3o9S9Wq 5PUDwvdGQ+ QS51gf39A3QdHkuvGmu3VG LkSAP8xWW3hK6jQJVfHUhk d3U1jIY2S0UhdbNkfz4qc6 xsYXBzZTog S27esXLsq5R5DDTygFH1BX JrjYajNxOooZ08Fep+PGNv bVcaz1PeEbcth7qiy9vwqB j7ZaXmVNRj mxYmvOlzTCN4t5MtQi85Y6 9sIHdpZHRoPSIzMCUiIHZh lZnerc6aqF1aYn1+PGNvbC X9qVX2yY5q ZcKhToL4ZMwhM761NkLehJ KaKlgrz9fwt6wezHp6VsDl BQJrzwCmrBrpLYY4m0PqIm 82V3KfeSbf n2MhFom7pg96rDOyr8J5hQ D6P7GcZRYjpmryzSNseXsb PQ4iEUOnhnwyRKOtnQ8sNZ KvS2t3DySx NaS2SZvrX8EacrA9BFKxeQ RtRRYymTXAaC2xzrvxc9tl uzsoFrIyUNOrLGf2VMw3GQ FsaWduOiBs UQP3XmD3WRC7cHWieD6qjD bbxdwulA3eKui+OOc8j2xp iGSwSG0cjRU4EI11TY46vW Aqh9J4yLL1 N4IuPCCazcttufznnEW5WX LgXVYkzL72Nu2agGdqAe6e ZKOkXPD1IXAviVSbA6TwhM 9yOiAjMDAw SMRkI7DicAHpBJxvS400SZ azNgE2AQWdtdZgO2HzXIKo sLulVzV0r0I5Vl4HZC62NN 17UK67mQEv z9B7tWQ7C2MgBQFmrmqarl kkvTX1IUGwCROkyX83Pr6b cQafEq5dZMZzNQD5KVAtcK NtP5IooW3e DvRrZUNeXJTvX9VjxPLcLG tqJ037ASbaAfK7OYQykqBd Z2NaIPXedDghMjV1z5O5Bg 4WTt40BR11 JH18fZVne1N0rUT2M6GzLT RwyyjbtppekUR0TPLzYUHo vE43De3ezEkbRr1iMRNcXL P0QTRrhLBx H0BkxP0gWoMuEBDeVVGoE9 OrdTJpXWdpZ611XPonVhA6 HZMxpmJoL3SqYOQeyXwuJc F5d9Z6Sm4V GNybhci1I4UlLxoeaIV+PC 43ZMVbJG64sVDqsJYcs6kx nQj3OnAcSMOuKOH3nZruES wwy0RlATJc Y29 (more content not included)... [facility] Progesterone LCon 12-17-2023 Progesterone LC 9.6 ng/mL Invalid Interpretation Code [facility] Comment on above: Result Comment: Foll icular phase 0.1 - 0.9 Luteal phase 1.8 - 23.9 Ovulation phase 0.1 - 12.0 First trimester 11.0 - 44.3 Second trimester 25.4 - 83.3 Third trimester 58.7 - 214.0 Postmenopausal 0.0 - 0.1 Performed At: [facility] [id number] Sarah Beal PhD Ph:[phone] Performed By: #### 3 [id number] ####[facility] (DEFAULT)[address] [place] [address] Provider Orderson 12-16-2023 Provider Orders [id number]#1.0 0OTGTIFF [facility] Coding Summaryon 11-24-2023 Coding Summary HTMLBase 64 IbjmrohtETi0hIo+PGhlYW Q+OL6QAOWrJ08dhYJveN3i G3EPXVeCGswvUPLNEIdZIg UoqhShTA6jkLDlUDZx IC8+IG0oVCOtEkcgcDYkm4 R5fDC3F77dpe7oEHqrdJG6 YZQbReIolnwbc3dwiFg2VZ cuNmluOyBt ZHXrlC70NUU2rK66Ct12rA JdsYJqb2uuuTh0KwIiOMGw JRO6jBwkJPahf5YdBVLlJ7 6afNFmd4W9 MFSyjDvtzYMwErDnuTB5uA 9bRWogzejwa1ujbjdiXqu9 fd33wHHwv4M7sHN7L7Qwqk O8ZHVhnDLz JayoeUSAxP1dekpit9fycp jxThXyRYHgMSd2ROy4JESg qJoaIsOoRN72UKE2XLZrmh QaA2SxEPUz xBopFoZ1t9L2Xj7TB1FLMd ekE5BTGZKKWPaljEM+PC90 my59C0OsGuaiSfa6RUPaSF T8mZO1jN2u YABqJQwyc5D5aZV7H6Tqku Wxlx4ht2frVNLbEUksA22q uMHtz5V5GAUlrKS0ZQCkgM dfGuOulS51 Oyc+MGNkvCzrn4ZeGmncy3 hqk3vxzUa5DdaiRUEuefTs sEfnQYL5n1MpZg2bBOGrpD S8bCA4eY8g NbTfKsN9OOouH958IrEtsW OcZwjjZ90fC7BntXS+PHRy Hgb1HYJiuSapPE6hT8XkCA RpbmctbGVm lOxkKA6fTZSfaqehXJNskQ 2sSSVxX7u3YfQjOvS9ETye R7LpJYDjrbncOq56bE6kMx IwNwE0JUej A7HiuuM8SGCefNCuIMtqVC R9N53jb6I9NONjFAGwGOF1 iWA7bQ7ygAyxuvvjpKHmmU sgdmVydGlj NKnzLVphB012NLUdqDmiOv NvZGluZyBEYXRlOiAgMDMv MjEvMjAyNDwvdGQ+PHRkIH L7uYehLSSj dIHwNAzbWl8ymFachJgbJT 1hAVDuqciyBCEhyL7dQYCt sNMtqUjrXK3qPWRpeegpv7 30SpFxCRP2 GSIpiDQgS7UnsL9hIuGnVH GhLBVxJ7RucQHtOMykH971 IFqnRhT0GXFihqNwN1JmEQ FsaWduOiB0 y0M0Mi7Gc9MnwdqoF4LspT MtOiCsWpkvOJu2S9PkNlmz dHI+BV98ZNMyPW44UJt1OQ K3cFueUNvg NKDjZ3LbuS7hJxCiNRBwVM RkOyc+PHRhYmxlIHdpZHRo HWkhCZNmDtEzpOcsYY5vCs 9yZGVyLWNv pLkpgXVgIqPxq7tqICWkMU luTF2cxAlsR6KciFR8ZCWg e3s7Pf97O72jO6EkpXW+PG LvxIQ4cSG7 dK2eAbSoKwU2AJgzT210Ta GvvKMbQjeur8qem0vodRh7 XnH3LGEhrgWuePnxLPW7n6 AhPw52N54l IHdpZHRoPSIxNSUiIHZhbG vvaq1keC1pKa7+PGNvbCB3 aAE7sB4iGyRxBeP8JFggD1 49InRvcCIv Ticpb6exg1levDm1BuQoCU QmpvQhvDkyXVH0m8NeKr82 T4BdpSwhu3SmLxi6gu21eH Kws3W5bSO0 K0BlWYXolcnpqJRmrLmpQG 9lDFItjbigIOOgyZ9sZMAd X8m4QuOyDaQ9OXreL9Opog H3WURtbPNi EWLuzLSGcL1ugrviv0bofw stWfQlNJYlEXe7QDw4YGKd pOchWvCbGVO7CeH1GAK5oS ImmT3kaGsc ckxteS2aVqc+UIH6yEAhtA OSOP1pQprkxVT+PHRkIHN0 pDijTMwwNPIboW3oTDCuJ5 r0YtYxKwO9 EEnmY3UgpkK9YOFdmGZiGT ShxVYOzL4jpkkkr6baoads FvTwXGItJRj4BMo8WYZxdR duOiBsZWZ0 XqH6BDY9jOKnbZ8hkTjyhp kbyB8jZbd+QmlydGggRGF0 KCu9H1XvEja9PXNlmZmxXL 0ncGFkZGlu Gl9sjBiwtPlfDV6rDXVxnl aey456SzJwq6cnSRXwmNIe RRisLYF7L54oy1C1VCVdJJ QjYTP2iEV3 mP4htDoitteisONyzBukam KjcUdyOKynVYhtD024IBWv uOevGxFrIIe7N6GdTzk5HP MqaIrmWP9a eAOoYXxlAz2xvPqocUbdBE 5pFPOrwskuw891ZuIvs3qj MYHtcTCvQVskWOA6U24cx1 B3DHMbNSNp GFK1yQD7aJ4nfDnbyreipT VmdDsgdmVydGljYWwtYWxp M994XLWxaJeiZgRwbKi5N6 UeOau8TODx hRklBQ1lmVElBCasDu8wuC ztgMlqUE4lHHTxezsik012 KfHwb6ayGGFzmEOjWBryDN Z0Q38bu6V9 DFPnTXScMXX6uTA5aP5ojL lnbjogbGVmdDsgdmVydGlj PMmqNKjaL480UAEwsCozLg BhdGllbnQg CTdvQRp8U0OmUqznhDL+PC 01UJIeKA98aYJpaQJda9ol iDr5UbWlRCXtNDD4oKfbEA fih7WvLYVe S21fhNIvb0N2CKHziCoprW FnGvYsoQU4nR7qOPgaacnd g4yphppmXkjao4angd53pN 09D25dTBko ZHRoPSIzMCUiIHZhbGlnbj 8qvO3wDy0+TNCsmJL6qCR3 hG7oPJBpNvY5KSooX798Ku RvcCIvPjxj e2gfo5piaRz3QxM2AZDhmh UwfCdmACJ6k3KiPz70E29r IHdpZHRoPSIyMCUiIHZhbG qjhs6jeJ3j Ii8+SJIdtJQ9rGZ4xH3bRe YsVvW5WLlqM065CoShhPOg TbrsY44hC0LqdSU+PHRyPj v7NBRauRqz CW6sqYFqRThqXu5wJYP1Wb XdMbDwGNngX1JkGMZmwzae hqqesZF7RVNpHMPtfE42Gz 9udDogMTBw kBEZvT9wepvph9zafkxvVe DtJGOoERz8GMa9ZQUdmRee NzQlROE8BsP0LLI7nERawE 1hbGlnbjog aV3xB3RvAHFbmdwhRr33nC 4fItBeCtA7RVngFpx+Q1JB Q9YHNmHeBCQOZYPTYcJvYP lDSEVMTEU8 G2YaKun7ZKSlgFmvKW0roD PmYOxzFs6yfFgcrMquJU5e FHTqzckxDJWomF1eDNDagO ZswYwqYB3w KZXrjuqeb149VgPzTEW8AA CtoYKrN3HimD9cKqJaUARq SSTzM0ZsuCRxNCnmX420OD moXuF5YLEq moOjG0CcFOEibNtkLjB1c8 V7Pp2aSp6rSP9zLXm4GZ54 ZP64mFPla3Y2wMF0I6IpAQ Rpbmctcmln vQY1RJYxXKXaxU58qNSkCO bqJx6an6S8c405NGDoORYd iO08Wu1gcHniCWFvzNQCdD 2fzmoax1ij ueiwVyAiMHQgHWw2HDx7VF VdfDznIvNsJBK1PgX8OXF3 pJEhhD4qyIhneotueP1wEn c+MjUgWWVh mnS0B2QxIwg3GBCovXatWG 3enPJpBCraOv5kbJkewOca DG2qGQTkyjebQKNasM2qQP JvdHRvbTog SO2zGRVavjqjj627TzYnOS U7FTLbvZBwG4WwoW5nQdHc NXFaYGYeY2KxrRAiZEywS6 37DQllYjZ1 LHCvjgZzB0UrJZPgoSbeLg K5z0Y4Kl9ACI3IART8N4Em Txe8AQFngBwsVR5fiJCpNR qqOb8vtEcz eYmmJN5aMBOypafaNEEojH 8wFVBfnNXbmYbtIS9dKVHf ssjfb233KvRpEBR2WACabP VoA0TxnW8h BfLbMTDxSLEqQ6UymLJuXQ bdM670PJtcLgK9PKKhdxWp W6EnFQIvxGivEfT8i8A0Se 9OlINdM5Ta F4u4P9ZyIbiyhZJ+PC90YW JsUD01vANipTGrn6srnIm8 YkHsXLZpIWR1dHrqLHlvd9 OrWQDgE82b gNQlp2Z7VZVydHfrfQZgOh BizDP4uC4iDZospfqgc7dg qyrsHmxlu7pdpx68rV54Y5 9sIHdpZHRo YUIcCAWxUVDoeHitxd5fnU 9wIi8+ZMOpwUW9mIX1kS4g QuMeMmA2IZejZ695WgYvtB SsUihpr6dm q5tjqDu8MuNaPWIbyuNljT miQRF8e1ObGs93Q01sINbw ZHRoPSIyMCUiIHZhbGlnbj 6jlI1dQk4+ QV0ar4mczy78zX52dDX+PH UhRVB2bTisBLceJWBmhQ6e MWnyHsH3UUIpTdIxsB24lQ OvLIiiHm5z cBjweRmfTP5dOMRmwmjjz6 57LkJxg3itBQKwxCGeWGpg CHK3Q39cq6T3HRRpBZOfPY S2yWF4mC4r bGlnbjogbGVmdDsgdmVydG eyKYjtWDdnW673UQZnrIcc DbRfvGRpP6jeiiECCR0tJv wvdGQ+PHRk PPV2yXxiGFnxLJFblY5yFS WtL8j6WiDtCaG3DFnwQ9Yg nfK5JWQfpJSiARXbzWJEeZ 9vqgqvi8vr ulgtAcSlZAWbOPb2DWl0TF NswCkzJjVcZZB9HoF1HYT4 xOIakN7dzSyygfueeD2vKm c+RklOOjwv dGQ+GYFyYAH7lCiqOYrvSA AfcE0iWTRtG0n9NrToAvS8 XSxcE9JzyfQ2WDLdtYRqGI SfrYQAmY9q esyfm0fmffzyLgTsICUtTE p6RDh1DPDkrJnpSiDnNWF1 TgQ8HIY2eFHpdY2nnCyeng ratZ6bXvb+ TVJOOjwvdGQ+IWImYNK0bN pxLXpxVDXpfQ7fAZCwV0f7 YcRuDuJ1SYrcE1CeqgB1ES JvbGQgMTBw iVIDoK8pfvhsz5xjhpzvHu HfZBPwWVp6HKw4ZYNqwPla XiPjAAY8DwB2JWI5eIRtlZ 1hbGlnbjog iF5vChj+RXE1YMA6VY35LJ 42N9PqHbitmGFsqWT+[facility] YmxlIHdpZHRoPScxMDAlJy OniAdtJQ0e Ym9 (more content not included)... Normal [facility] ED Clinical Summaryon 2023 ED Clinical Summary [facility] - Emergency Department [address] [place] [id number] ED Clinical Summary PERSON INFORMATION Name: BONNIE ASTUDILLO Age: 23 Years Sex: FEMALE : 2000 MRN: Acct#: Visit Reason: Laceration of finger; LEFT INDEX FINGER CUT Arrival: 11/19/2023 09:14:04 Discharge: 11/19/2023 10:10:00 LOS: 000 00:56 Check In: 11/19/2023 09:14:04 Checkout:11/19/2023 10:10:00 Address: [address] [place] [id number] PCP: Anthony Gomez MD PROVIDER INFORMATION Provider [...] indicated that 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 She used a sharp knife, and accidentally [...] History Medical history: Resolved Ankle fracture, left ([id number]): Resolved. 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 Surgical history: Cholecystectomy ([id number])., Reviewed as documented in chart. Family history: [...] Polycystic ovaria (more content not included)... 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 She used a sharp knife, and accidentally [...] History Medical history: Resolved Ankle fracture, left ([id number]): Resolved. Ankle impingement syndrome ([id number]): Resolved., Reviewed as documented in chart. Surgical history: Cholecystectomy ([id number])., Reviewed as documented in chart. Family history: [...] Martinez RN 11/19/2023 Alcohol Use: Current Comment: Gillian - 11/19/2023 09:33 - Marisela Soto RN [...] per month 11/19/2023 Substance use: Current Comment: Denkyle - 11/19/2023 09:33 - Charles ALLRED, Marisela [...] and orient (more content not included)... Normal [facility] ED Note-Nursingon 11-19-2023 ED Note-Nursing Pt ambulatory back t o ED rm 6. Pt C/O Left index finger laceration. Pt states she was trying to open a box and cut the finger with 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 The wound on the index finger is a straight line of 4cm with a width of 0.2cm. States last tetanus was more than 5 years ago. Pt is A/Ox4. Normal [facility] ED Patient Summaryon 024 ED Patient Summary [facility] - Emergency Department [address] [id number] PATIENT DISCHARGE INSTRUCTIONS Patient Information Name: BONNIE ASTUDILLO Age: 23 Years Date of : 2000 Reason For Visit: Laceration of finger; LEFT INDEX FINGER CUT Arrival Time: 11/19/2023 09:14:04 Primary Care Physician: Anthony Gomez MD Attending Physician: Sreedhar Cheney MD Comment: Visit Diagnosis: Diagnoses This Visit Laceration of finger ([id number]) Laceration of left index finger (S61.211A) The Pharmacy at [facility] is open Tuesday through Tuesday from [...] problems; contact the [facility] 28/03 Crisis Hotline -Text [phone]. If you received any narcotics, sedation, or [...] legal documents With: Address: When: Anthony Gomez [address] [place] [address] [facility] [place] (1) Within 5 to 7 days Comments: [...] and treatment you received today in the [facility] Emergency Department were for an urgent problem and are not intended as complete care. It is important for you to follow up with a doctor, nurse practitioner, or physician?s cleaner assistant for ongoing care. If your symptoms [...] so we can reach you if necessary. [facility] Emergency Department has provided you with a complete list of medications post discharge. Please inform your fender repairer/provider of your visit and for further instruction [...] better healing. Unl (more content not included)... [facility] Coding Summaryon 11-02-2023 Coding Summary HTMLBase 64 DhftfdltVDd6iTc+PGhlYW Q+FF8EITOfC98fvJSapA0z Q9OEJLaYUlyrMSNZIBsZZw KjzyZbTT8szWLjNAYh IC8+RK7jXTXdWvbtpQLlv4 X7mJR4V65cfh5yUByupNH5 HIDuRqJgkrwvm4qnfRx8PZ cuNmluOyBt JJXnwC37XXH4mC36Kt03lW XplSIob4wrxOq5MzYpWESs NTQ9jVvvWSdls5KtIKObA7 6yfHSuo0X6 VTZkcSictOOiUuIduEC3bT 8kDHugpcoyb9hbsuycTmj7 pu48hPOyq8E9kBW0C5Aprx M6APQngLRe AhpwuQUZoA3eohifj5qcrj xbFqSwNOJsSIq8SZr3VTLh qXfgZzJbLS53JHH5JCRhyy WoS4NxJRUs uLpsFzR7c0Q1Sf9BT2CZTz gdZ7VHKAPFIKdphBV+PC90 sm29C0GoUxuyLgz9MPKeRA P3rDQ4kJ3h KWFvHEbxq1V7wHI8M0Dvbh Bclh8nj4nuNPSzKVgrG80q dFTwe5Y3SDEpxYA5GFYjlE lyPtWrfL68 Oyc+BDTopAomz7IySzvcz5 nvl3igxEs4IdifRQLyfcUc zWjaNWF8e0TiZl9uOMWryP T1gCP6bW5r SzEgDuE1JDlcK241RkOkdY XzSlxzO47lY8IxiHY+PHRy Ifa1VONwtZusKC5zZ9TvXW RpbmctbGVm zIibGE1mBYChobdvLXYdwE 0iIENoD3a9LzYtOpD9WMij A9OeJMRgcvevGb69lT1cPo GnGyV2IWfk H9LyyxY4KMZayBCrDCgcUS R9I23yv0K1QRFrNRYdXMT8 kMY6lB5enPmorynfsHRuqN sgdmVydGlj WSreYOyhL899YNRjeGsxPd NvZGluZyBEYXRlOiAgMDIv MjgvMjAyNDwvdGQ+PHRkIH M0oGhaBDQh gEYqLTccKh9bjGkqcJjgQZ 5hBNTmgnpwMQWvzC4dKKJf xEStgOqcVW7nWVMtptqhr3 23DmSoIRZ7 BYGoyIAkT6GvhG1cJfCiSO LhWTVlV7FxpKPkHJhnO224 IXnvVkC0MFBiyzKmB1IlGM FsaWduOiB0 w9V5Nc5Ky5OvtxznL1UtcT IfDbEkDlqoYCi3W2UeYmsl dHI+NS11QNOqNS26GVu8VA J0gJfnOCdh VCWdZ5IeoE1aFkSmCKMnMH RkOyc+PHRhYmxlIHdpZHRo SDxbAIJwUlQbcKkqGO2pDd 9yZGVyLWNv kGrjdLFfAiSww7laKCGcTW wyDR3jqYhdR9DycRT9MTWr v6k8Pt74C67nV4PvqON+PG LdfYM9eMT4 jH2wYnKpXlZ8JJvmJ033Dp RrmINxVdpwi7mrk1uggLq9 HfQ7GUTkylItlFiwSWC4l9 QaWg06C84x IHdpZHRoPSIxNSUiIHZhbG eugs7zuE6nYv8+PGNvbCB3 hKM9qL1zLpEoZkR0UKmwD9 49InRvcCIv Zsltk8wav9lvkNi1DtYrSY ViehZqoKfzATN1c4RqAd52 F5TuhPigk1LkDku1bo64eV Kog2S5zYF6 O7IrEUStkikmhPRsgMdrUH 3uQTNowbfhWKGtrW7pCUJj E7h1LjEuRiA7ZQitZ1Nnhz I6AVKqaYGh THNqzDZTdO8ttuvja9vjtp ngXwLtDTQmIAs6XFt3UPFr aWnmCxKhDAC5GuY7HQL2pF ByeJ9cxOul bugcsW9sYjk+HGB5yCQxeR MSRL2cQjbeyJN+PHRkIHN0 bJdoUKnzACPjmC2dVXSqF2 u5UbJyCsA3 KTyfG9ImruB1FRQbqVToGF BzdEVTgV5bxxsks9dhflzs UkRsFYXkVYp5WUv9TEHfgI duOiBsZWZ0 MlH1RRX1xMMsaJ3bzClxuc xgpV7uWaj+QmlydGggRGF0 KVw8J9EnSxz9DQLlqPfxNB 0ncGFkZGlu Vr7lnHihpCeaBZ4rUMSjyk bcl066StIfi3ydXNBggDRa CHngYVQ9S57vx3Y6SVDjGX GtEFH1gUT5 bJ8hnNiktsywiTGmxIaewy CorCzeDLbjGCqzB797ZGEv lZviGxOrFIk3W6DzAdm6MA RfbYmhPZ1z pUBnNUmpLv7stQankKnlEN 5pAIZgbrnuz312PbGrh9oo JXEjjBPwTMifPQZ1I07yj1 E8TEPuRBXz MSH1eUQ9vP6jcQicpujgoT VmdDsgdmVydGljYWwtYWxp L148TFZaeNkaHcRutXp9U3 ApRpn4WSFm aFvaJA7gdIQsITnmSi2tbL prcKlrWC7fIUDfldswr728 GuQec4cxFCQqkAKwHPvpWW I0P48vc5Q8 KFTuSPUmWEG2oKE9bG0npB lnbjogbGVmdDsgdmVydGlj CHyhOTbnD405AQZapBebZb BhdGllbnQg UQstVPk5V4OsAbwzvXI+PC 32ORUeGA52bRKyhDPss7sl kEu4OwKlBDPoLFQ6rIegGV hhp5QeMRKn M46qwXRbm6F4XPBrjVkaoE TkRxTxkJN5yY3uUCqjuusy h7vegprmOxnwm4ndhs01fA 35B25vGFjp ZHRoPSIzMCUiIHZhbGlnbj 5oqA9zCr2+RIDqzZR1xGT4 qN0aCBQlOiT2LIlpG762Gn RvcCIvPjxj g0rds8dblMr7IwF1XVJipo BkaIqeEOV4y9GyTk23I84p IHdpZHRoPSIyMCUiIHZhbG jnie0gzK5v Ii8+NROnfIX9zVC8qZ9qAk HiVjQ6CNlyG983OqBwoFIy YgxrV69mH8NotCQ+PHRyPj d0YRPygJub NJ5saHRgZMpjGo8fQTB7Lo YbAnRlYMipN1RqMNRnnovp gcptpWO3GGIgBXQfoO00Vr 9udDogMTBw zVLDmD5conuzv8dfilmwVe SzUGJzRFs2BKt4HXNaxPin NyClOLC3GoD2EYD2aACnuN 1hbGlnbjog jT5hC9PoUYAkwzpaZz24lT 3aGrUiXkT6RUmpGhe+Q1JB O1JKRhXxXMMIXAPTKfYlRH lDSEVMTEU8 J5IgAso1NVWwzDgvOZ8boQ KcYFnvNv0cjWsxnPtcLX3t XRSabiqjDMOtiW2dQRPijV UvrKgkLJ7g VVKzxesdt715WlEoOBF5LG BlfDFhN7IynM0xRySlCGOy BHRoJ6UndDEtEEqwD090ZI nyDdR3TKEi pjObT4CvLHGuvFweQkD0h1 K4Fk6cId9lEB1jPHy4FF33 ZW68zDNau7T9mBW8I0WhEJ Rpbmctcmln lMX5DPQzVMOanH31aODjJX mlEr8io1Q5r785GVHkGRFc yK03Gv2buRzjELPhrJHPtH 3wximdo5nj cxvcMjPqVFMmWGm1RUi4PE ArrUfrGbAaEYZ0KcZ3RRC4 sNFldH0ruJywlzmujU6hLm c+MjUgWWVh xpA9X9GyBev6GSTzxVyyQK 3ygPKnDAhnBe5xzEqdySxo FN3dFROchmckYRCpnY1qNJ JvdHRvbTog RH3eVZLdzqucn494UnYjDQ V4ZMLwrDVcD8KeiZ0cJmOq VUDcDVOhN1DffGKuVBukX9 39EBeuVqF6 WEWprhTsJ1WjANUpbSnmRh K5u5P6Vc7HJN0JSOT7W1Nk Zek6SAQatQusGJ5mrTMaXP bsWf0wiHyo jEsyBU0qGPGcyodmIIPsuY 6cPGGedJClhTmaNM0sYEKf ekmto147BmTfOMH9ICIpyH MrW5UtkR6w TcXkIVMpWOZyQ6StbOGnQW ghC577WGtaKwX5MUKcuoWu W0XlTDUfkCddWqT4j8A7Ng 5PUDwvdGQ+ YZ13vj75M5VgXmwxTkh7NL AqOVT1hNS1yV9wYSRpXFqi s9R6xLK9R4DpvkSrxs6sv7 xsYXBzZTog Z40hlBNec1Y8UZMgaKW0RH TxjHqrPgIhuQ93Fwi+PGNv cKeii7JkMvbup1pac7xooK k5UjWmOGIu qvAarEbnFAH8u6HaTg23J6 9sIHdpZHRoPSIzMCUiIHZh oPgxhi1lhW1hMv3+PGNvbC T9sQY5hS6k BpNhTuH9HLwfN795MjGbqF LqYjqqz4juk9areBz9FyHc CUDdgmOwkRdqVFZ9n9WoRb 86U5ByvTnm e7BoUce6tv10nQPce8V7wH P9W1QaCEEaucktvHZvcTzb FL8tVMSgjkzzXJXujS1mTE IpN1f8RnZg GxD3IFffY0FoqvA9DXLovJ KzWIUsqYKBcO5pskrmz2qs xeomTmLcPHJwHEm7JXl8ER FsaWduOiBs MNO8YjL5UTR2qBSsbD9vdX nqcsenrR3qQkp+VOd6m0hh hFUaAK3jlIL1JX75VB78vW Qkj7P3cVF1 T9PpXBSalakoxbtgfFJ1FP QtFPZthA13Xr3scXgwTd7k YQPyTPX0FKMvkSJzT6KstQ 9yOiAjMDAw CFCgA2UfgTPvKKrgO893IO xsFvZ6NLMexdPaO6GtTMYb gBoaYsM9d4Y1Ri4SSX75NW 99JI16vAMt n4F2yMR6A3GuGGSqyhqrxb vohZR2XMIqIOXdoN01Bv4a tIrxHf4zTGYvALN7RLRelE IdC3DwzP3v OiGzUBCkJWBcN3XqjHCiPS zaX263KJpoTmW4FZWgafNm W1JmJSJfiJqwAmY2m5M1Yf 2KFz53BG51 BQ72lVUsa4K5lDP2U4YhNK QhshvfttzixCE4UXQdDIFo mD70Uw2tnXrjLy0eBBWwEK A4HFAgcWYr B1QtoN2cPpDhGTAmNOYzG8 TxhOIiCWscY295OHcnUlA4 XWLyuxIlY8JvIULuiZbdWw Y8p3Q6Yv2Z WMoitsm6D1MsAlontRM+PC 53FKDwMP17gPGfoANpn3lf tDh9KiTbGTGgZWW4mWxxKV wtt7VjJOHv Y29 (more content not included)... Normal [facility] Dehydroepiandrosterone (DHEA ) LCon 11-02-2023 Dehydroepiandrosterone (DHEA) LC 456 ng/dL Invalid Interpretation Code 95828 [facility] Comment on above: Result Comment: This test was developed and its performance characteristics determined by [facility]. It has not been cleared or approved by the Food and Drug Administration. Performed At: [address] [id number] Gustavo Donis MD Ph:[phone] Performed By: #### 6 027970, 69437753, [id number], 2733743, 42750928, 30058337, 4998848, 2652670, 45350985 ####[facility] (DEFAULT)[address] [place] [address] Miscellaneous Testing LCon 0 11-01-2023 [facility]. Test Result LC COMMENT Invalid Interpretation Code [facility] Comment on above: Result Comment: Test Ordered: [id number] Anti-Mullerian Hormone (AMH) Anti-Mullerian Hormone (AMH) 5.22 ng/mL ES For assays employing antibodies, the possibility exists for interference by heterophile antibodies in the samples.1 1.Aubree Estrella. Interferences in Immunoassays - still a threat. Clin. Chem. 2000; 46: 9217-8694. This test was developed and its performance characteristics determined by [facility]. It has not been cleared or approved by the Food and Drug Administration. Reference Range: Females 20 - 25y: 1.23 - 11.51 Median 4.70 AMH concentrations of >= 1.06 ng/mL is correlated with a better response to ovarian stimulation, produced more retrievable oocytes and higher odds of live according to Kelli et al. Fertility and Sterility. 2010: 94:3426-4040. The current AMH test method correlates with [...] exclude an AMH-secreting ovarian tumor. Performed At: [facility] [id number] Sarah Beal PhD Ph:[phone] Performed At: [facility] [address] [place] [id number] Wagner Forte MD Ph:[phone] Performed By: #### 1 [id number] #### [facility] (DEFAULT) [address] [place] [address] Dehydroepiandrosterone Sulfa te LCon 10-29-2023 DHEA-Sulfate LC 252.0 ug/dL Invalid Interpretation Code 84.8-378.0 [facility] Comment on above: Result Comment: Perf ormed At: [facility] [id number] Sarah Beal PhD Ph:[phone] Performed By: #### 6 578677, 92108245, [id number], 7703024, 58265116, 81530250, 2989979, 8914728, 57454227 ####[facility] (DEFAULT)[address] [place] [address] FSH and LH LCon 10-29-2023 FSH LC 5.9 mIU/mL Invalid Interpretation Code [facility] Comment on above: Result Comment: Adul t Female Range Follicular phase 3.5 - 12.5 Ovulation phase 4.7 - 21.5 Luteal phase 1.7 - 7.7 Postmenopausal 25.8 - 134.8 Performed At: [facility] [id number] Sarah Beal PhD Ph:[phone] Performed By: #### 6 227717, 86992015, 0433359218, 5820089, 81267607, 69146725, 3512307, 3362055, 08958143 ####[facility] (DEFAULT)[address] [place] [address] LH LC 5.5 mIU/mL Invalid Interpretation Code [facility] Comment on above: Result Comment: Adul t Female Range Follicular phase 2.4 - 12.6 Ovulation phase 14.0 - 95.6 Luteal phase 1.0 - 11.4 Postmenopausal 7.7 - 58.5 Performed By: #### 6 395966, 21545272, 4179824125, 5293654, 59778422, 49966508, 4558444, 7228442, 62658676 ####[facility] (DEFAULT)[address] [place] [address] .Auto Diff 1on 10-28-2023 Auto Fleming % 6 % Normal -12 [facility] Comment on above: Performed By: #### 6 081660, 73227686, 9725199397, 5818043, 87504322, 70282700, 5883769, 6071903, 08339567 ####[facility] (DEFAULT)[address] [place] [address] Baso Abs# 0.1 x10 Normal 0.0-0.2 [facility] Comment on above: Performed By: #### 6 912225, 33796591, 8397397514, 2774202, 80773277, 14725430, 0972200, 5378397, 09606306 ####[facility] (DEFAULT)[address] [place] [address]3085 Basophils/100 WBC (Bld) 0.8 % Normal 0.2-2.0 [facility] Comment on above: Performed By: #### 6 370250, 84894297, 8883188186, 6530558, 23877670, 00094588, 6980092, 5882772, 41499157 ####[facility] (DEFAULT)[address] [place] [address] Eos Abs# 0.3 x10 Normal 0.0-0.4 [facility] Comment on above: Performed By: #### 6 146460, 23760571, 8038395296, 1146031, 42671236, 25354101, 9070486, 1662001, 55326879 ####[facility] (DEFAULT)[address] [place] [address]6948 Eosinophils/100 WBC (Bld) 3.9 % Normal 0.9-4.0 [facility] Comment on above: Performed By: #### 6 735724, 08358060, 0061157604, 2923375, 02032184, 84416841, 9344447, 5673172, 63547397 ####[facility] (DEFAULT)[address] [place] [address]260 Lymph Abs# 3.2 x10 High 1.3-2.9 [facility] Comment on above: Performed By: #### 6 895489, 59676568, 3533696209, 1970646, 28055466, 51572982, 6986944, 6335990, 90110213 ####[facility] (DEFAULT)[address] [place] [address] 33329 Lymphocytes/100 WBC (Bld) 42 % Normal 14-48 [facility] Comment on above: Performed By: #### 6 468857, 22230885, 9356908751, 0624553, 10861997, 14538145, 3294143, 3610415, 92973809 ####[facility] (DEFAULT)[address] [place] [address] Fleming Abs# 0.4 x10 Normal 0.0-0.8 [facility] Comment on above: Performed By: #### 6 905090, 41273710, 7579365003, 1715164, 31999131, 36834740, 5269591, 6592859, 44390563 ####[facility] (DEFAULT)[address] [place] [address] Neut Abs# 3.5 x10 Normal 1.5-9.2 [facility] Comment on above: Performed By: #### 6 429676, 07244595, 5005686771, 2901386, 89897453, 20981918, 9821918, 0933340, 34508735 ####[facility] (DEFAULT)[address] [place] [address] Neutrophils/100 WBC (Bld) 47 % Normal 44-88 [facility] Comment on above: Performed By: #### 6 335766, 41640188, 6787941652, 7248848, 39157531, 67063693, 8721279, 2962774, 52682009 ####[facility] (DEFAULT)[address] [place] [address] CBC w/ Auto Diffon Erythrocyte distribution width (RBC) [Ratio] 13.6 % Normal 11.5-15.0 [facility] Comment on above: Performed By: #### 6 086922, 10184824, 5682988823, 8285358, 55477459, 98725508, 7861021, 3310563, 09486398 ####[facility] (DEFAULT)[address] [place] [address] Hematocrit (Bld) [Volume fraction] 42.1 % High 33.7-40.4 [facility] Comment on above: Performed By: #### 6 038683, 04712046, 8242989889, 2894237, 65391968, 18460363, 2224573, 8532387, 73229007 ####[facility] (DEFAULT)[address] [place], [place] [address] Hemoglobin (Bld) [Mass/Vol] 14.1 g/dL Normal 11.3-15.9 [facility] Comment on above: Performed By: #### 6 264525, 20729644, 2930446088, 9560608, 92932976, 65609318, 1473802, 2957095, 30143903 ####[facility] (DEFAULT)[address] [place] [address] 93580 MCH (RBC) [Entitic mass] 29 pg Normal 24-34 [facility] Comment on above: Performed By: #### 6 414023, 63584358, 7838770640, 0213580, 81942445, 47437572, 8853036, 0729791, 81517357 ####[facility] (DEFAULT)[address] [place] [address] 17584 MCHC (RBC) [Mass/Vol] 34 g/dL Normal 26-37 [facility] Comment on above: Performed By: #### 6 278436, 31754649, 0343471316, 0545944, 64198185, 86355062, 3936024, 1294893, 39785707 ####[facility] (DEFAULT)[address] [place] [address] 88930 MCV (RBC) [Entitic vol] 86 fL Normal 81-100 [facility] Comment on above: Performed By: #### 6 137502, 10222905, 2981234812, 3535799, 66607613, 00831382, 4739584, 2502389, 80968012 ####[facility] (DEFAULT)[address] [place] [address] 92374 Platelet 383 x10 Normal 138-427 [facility] Comment on above: Performed By: #### 6 558201, 46628914, 6812710871, 9207971, 15979556, 28961127, 3585276, 0083957, 94215105 ####[facility] (DEFAULT)[address] [place] [address] 99632 Platelet mean volume (Bld) [Entitic vol] 7.9 fL Normal 6.3-10.2 [facility] Comment on above: Performed By: #### 6 476293, 92284082, 2959478106, 8640870, 09367127, 39244373, 7764694, 7633422, 93894732 ####[facility] (DEFAULT)[address] [place] [address] 26950 RBC 4.91 x10 Normal 3.70-5.30 [facility] Comment on above: Performed By: #### 6 409291, 09027389, 5986516514, 8771365, 29415813, 62292858, 6945631, 5984327, 86422166 ####[facility] (DEFAULT)[address] [place] [address] 05431 WBC 7.4 x10 Normal 3.5-10.5 [facility] Comment on above: Performed By: #### 6 263688, 05783084, 1323561891, 5152312, 82469017, 30748272, 4398780, 3882080, 69448287 ####[facility] (DEFAULT)[address] [place] [address] 12893 Man Diff? Auto Invalid Interpretation Code [facility] Comment on above: Performed By: #### 6 885515, 28178879, 6456781524, 4865706, 32645085, 93632026, 1230762, 1425349, 52502286 ####[facility] (DEFAULT)[address] [place] [address] 80744 Free T4on 10-28-2023 Free T4 [Mass/Vol] 0.73 ng/dL Normal 0.61-1.12 [facility] Comment on above: Performed By: #### 6 965491, 92448687, 4540496292, 8421014, 44231327, 63289814, 9758344, 9099028, 31368969 ####[facility] (DEFAULT)[address] [place] [address] 02442 HgbA1c Standardon 10-28-2023 .Hb 14.4 Invalid Interpretation Code [facility] Comment on above: Performed By: #### 6 705738, 12388436, 5334091111, 8733939, 52208473, 70340649, 0450924, 4972365, 42661059 ####[facility] (DEFAULT)[address] [place] [address] .Hgb A1c 0.48 g/dL Invalid Interpretation Code [facility] Comment on above: Performed By: #### 6 705025, 57835370, 7497358781, 9098801, 73037375, 80767700, 7149731, 7999212, 38149922 ####[facility] (DEFAULT)[address] [place] [address] Glucose [Mass/Vol] 102 mg/dL Invalid Interpretation Code [facility] Comment on above: Performed By: #### 6 125578, 89752796, 7339768123, 1575215, 48188416, 11186496, 7119126, 5085251, 89341709 ####[facility] (DEFAULT)[address] [place] [address] HbA1c (Bld) [Mass fraction] 5.2 % Normal 4.6-6.2 [facility] Comment on above: Performed By: #### 6 318270, 69458869, 4404979124, 8384583, 46030476, 75624263, 8059930, 4988719, 00508319 ####[facility] (DEFAULT)[address] [place] [address] 80775 Miscellaneous Testing LCon 0 10-28-2023 Test Code LC 749101 Invalid Interpretation Code [facility] Comment on above: Performed By: #### 1 [id number] #### [facility] (DEFAULT) [address] [place] [address]1651 Test Name LC anti-mullerian hormone Invalid Interpretation Code [facility] Comment on above: Performed By: #### 1 [id number] #### [facility] (DEFAULT) [address] [place] [address] Provider Orderson 10-28-2023 Provider Orders [id number]#1 .[facility] 10-28-2023 TSH Qn 2.34 m[IU]/L Normal 0.45-5.33 [facility] Comment on above: Performed By: #### 6 844596, 89435782, 1423342972, 3899735, 92409514, 55208285, 0098684, 1377787, 17916235 ####[facility] (DEFAULT)[address] [place] [address] hCG Quantitativeon hCG Quantitative <0.6 Normal 0.0-0.6 [facility] Comment on above: Result Comment: Post -Menopausal Reference Range is: 0.1-11.6 mIU/mL Performed By: #### 6 379788, 24368492, 7454288256, 8420383, 33249150, 65478935, 8836086, 7381010, 00648342 ####[facility] (DEFAULT)[address] [place] [address] Outside Recordson 10-18-2023 Outside Records [id number]#1. [facility] Coding Summaryon 10-06-2023 Coding Summary [employer]Base 64 KjsdmdgqVUi0lDw+PGhlYW Q+TZ5WFCQlK10hyQMaiW1q W2JEDEuNPyyzTQTCRDqXHv DtnuGhLD8gxENgSRQj IC8+PO1vTFVsRqiayFJfd9 U1mQG4H52hsn3aWEtbiIQ1 RZRcJtSmrrryr2pybSx6AX cuNmluOyBt UHYtiS65OKH1oM39Uk40lD JvlXXwg2thxGm2ZuMdAGGk FJO5fBrkHGofd5FrPRZdN1 6qpUShe7C7 YNZldXbmmEAwHvDvgNZ9wA 5sWZaggpefz3hojaexCkg5 uw33dNXij4W8bIQ4G1Efqz H9DUGtkNIk FruzjGSWhZ8pvjfxk6ehex wjJtLcWVCyPXv0ESm9OZNz hBtbLtVlBE01AOA4KHUeyn SgF6VhNFOj rCwiIhY8q0A8Nu5QY0KGBv caY4DICSYKKAdwxWR+PC90 cb89Q7AnZrvpRkc4FKViEP W3eCH2fR0c RNXaPJjiy3L4uHY0C9Wtxi Megj9ut2rpMCYtNJaqB93g jFIoz8V7ZMYixNP7QGQmlK vpCsAgdI07 Oyc+RATuaUpor9DqLmhsi7 svu5gsgBx4GlokDQWeqiWj vQysWZN4a8NyPt8bSGVyyY D7zUJ7fF9z PzGlVoG2STygK185FaQmlO RmTpsqB13gF2GytAE+PHRy Aqr4QCYglQtnOU8yV0GkSZ RpbmctbGVm vOjmKJ0xOFUvajehPMBldR 7fHMNqA6e8AoKrYuI1UVdd P8XhEBVjhceaBr21gK0nDi JeRgA5GVni E0WvwlZ9JYOgwSRyXNucSX E0I46da5S6JPIsEMNsWXL7 bVW9xI8duAdtwixsbYWilM sgdmVydGlj NQroFJjnL939DVCouPklBv NvZGluZyBEYXRlOiAgMDIv MDEvMjAyNDwvdGQ+PHRkIH Z4wChsOUBy xGDkYDupGw8hpVsqeAynZR 3gBAKvrxzcLEBjwI7wHLCq lJIyeVffGU3sIQLzfdtck3 08InNiARU9 EPSebGIeJ7QvvM8sOmPbNB GtQYQbS8WosWUzJYwiB537 ANwtKtQ9KNTpfhOaP3PvWS FsaWduOiB0 o2L2Fj1Up6GolrvnN3BjdQ LkLrRkWvfaLYx4F5DjWitr dHI+AN87TIIiVP51IKb2HU I4rGmbNEfo SZUwB8WamM2cPoKaHHZoVI RkOyc+PHRhYmxlIHdpZHRo DSzgBVTaGxYtgLikUG0gAo 9yZGVyLWNv rLhogZLpQeWek9ufIUDeHG suFQ0yqVmkS4OqrVD5AKDu s5l4Pf22P09eQ3WisEM+PG EelIH2fKD8 tA6kKqMsFzW5EQxyF206Ho OamLEgWniiu0dec4kftEm6 WrM9ZWRizgHquYgtHXJ4s0 IsVg52A74u IHdpZHRoPSIxNSUiIHZhbG dcqj9vbD7hFq4+PGNvbCB3 dZP9iA1zYwKsKnL1LMtzG5 49InRvcCIv Hosud7zqy0bsnFk2SiAuFU DktxGzoJipTUJ5l0KoNm94 V4BwqHczp5VdHcz3so45iU Mll2U2jLN5 V3CgWIBmmawwlNAcqRsnSJ 6dXNSkqitcMEMbjE0tTLAa G3m9EgWoXwP6IBhkD5Yvby L0NEFhyBZd IDVjcAJQnO7tvzvjg9otba epPaKoVRErMAl9VUx8UIGy eSqzVuEgFJV1UiK2YQM5hM UmpF2ewXgn qoqpcD3lSgv+WVL1aSXspZ XNWO8qMhgagKU+PHRkIHN0 bHbhXGvwXZQmhY0tUIZsB0 h0VeBzWfR2 UAycD8IpymF5BMZfvYKwYV DtrFJTlA9yqggii2glcxhj JuOcLCVjCZg1CKz4PGIppK duOiBsZWZ0 UuX2EPL1iJLugI2xvTdtct fdkK4mKfq+QmlydGggRGF0 MNp5B1XlUvo2TNCcyPreJQ 0ncGFkZGlu Vr0fmWurmMpuZI5lHQIfrt xud650IhKnx3zzKFTafFDk UUqqPAR2Q62pn4K9PAVlQS IsMPV1ePI0 cM5ahApcizhhgEAcuLjpit TunQlaISoaUFiuR502AKPj zQkpLlNyYBg2R0HtDnt8GD YynDnvTK2p kZWuBKleLz9zcZuefClgOW 4yNTGerggzz722BcUop2ri XPEcjPRpNWizJWD0F15ak7 N1UWFzMWDj QGB2aSZ8vP2wpObnkywrtD VmdDsgdmVydGljYWwtYWxp M222HLNhgFtvWnHkrMf8X6 EtWuh0BGZp eCqgYM6qoCYmFZhpPz9teB sloAixDB5kNFDajnonu108 KvJdg4ukTMThmSCzOMiuFY N4U82im5P9 AWXiBGOuWFW6hMY7mI5khO lnbjogbGVmdDsgdmVydGlj JHrwWYweS097RFCcaLqbSo BhdGllbnQg JLcnXWu2L5ZbSftjeRI+PC 45ISTsLE81hKXhrIPuu0ay fJq8PwUnLPJhCDN5aBnhAY sfk0CpAPMn L42vkQIcn1G6FHKhsSqihS WsBtNqtTG8uX3kBNdhstyp g5opjzebYwvqn5ofca05gU 71U80aALow ZHRoPSIzMCUiIHZhbGlnbj 7jvW3gBi4+UJFubJP6kXV3 lE8lOIEvRgY0ETsrG701Tb RvcCIvPjxj q1efd0gvmVa3UqF3TGYkwb VvtYczLKZ6h6DeCq17W34y IHdpZHRoPSIyMCUiIHZhbG duhk8xkB6j Ii8+KTPedCT7tFT5xX8tJq HuElH2QGrqV101DhFqbJGj JqdeV48cX2PkzLW+PHRyPj b7GXUhoTqb CH2fkTAgTGguYk3dKFT2Nt BqRtWlQWhxF1TmESXaoydz jasyrNX3HIIzAIAnzN72Al 9udDogMTBw wSIIxX0mhnydj0wydascTo JzJBVsUSi6VCe4KNQlxSsy JeDfSQH8OkO8TJK3nZNigV 1hbGlnbjog rR3kX3HfYGMhabxsWg90fK 7uOeQkGkL9WMtkUng+Q1JB C6CZJzFcGCDAKDSKDjYtYF lDSEVMTEU8 R6BuYbz0BHTnvNxdFM2nqJ UgJGhjHl6eiDzmoKccSX1u ZGXycwhxFFPkkP5tTKVjrI PnyZotLZ3o SMEsrlrju668NqFvDOO2KC RatKKuI7VhtJ6bDnFqTCIa FUCdK0FjeJQjIYwpB398UY jaYzZ5RRLq fbUqC4KmUPIlsHsdUmQ4g0 W0Cd3xFo0tJJ2qGAy7MC12 SS96pNYjj7G6uQJ0O0LcGW Rpbmctcmln rRU3WZQaQDKrnY16iDLcUO feHb5vu5D9d317IUAdAUAk pV90Ls5sxEgzUOKknYXSwR 9yjhgpw7ca fsrnLzFzCPIbWQk0RRw1JW BvoDvgDpVuKGQ0BjY1WJQ7 eUMqoY6leMorpkuhvR2xRt c+MjUgWWVh faM6U1OeJsz4SVVxzOvoRI 4jtYInVZjuAy4smIfzvWxu DV0sUKKmqvkaGEWjdR5gYP JvdHRvbTog ZR3wDBTxqcqww049ApEdGH O0YWYcdMGpU7ImuZ1pDzUv GYZyVHTqQ5WriTGrTLcyA5 06DBxtNuD0 QZLetgBfU2CaVJCndGyhWj U9r3A5Yy9ZHZ7PXPH6C8Mt Cef3XJNchCdjDQ3jiTZxPW quKw4afYyu gRvkPN5tMPShblyqNWCyoF 3cTFUcbBGxtZwkFO3aFJJz xctzt757KeHrAON0DFIqcS ViY7WxdN9g RbYoXWAgQYUaI2DhmYLuPM ykK763GMqkNnC0IHUqbnVf Q5QiQNQcqIijUuN7a2F2Sc 5PUDwvdGQ+ UX61cf12V9OsDagtXyx5SP RmUAO5iIW9nH2vBIKzXRnr z3L5aQI0F0UseyKijb7ym7 xsYXBzZTog N92odMDlz8Y4JBFcdPA5YR QaeNrsXwNnwU97Tho+PGNv kZoss8RwUpaaq6ddg1mzoA i2GdEoJKAq mmPrePmuYVI4x1NaXy13I8 9sIHdpZHRoPSIzMCUiIHZh nTpjlc8alL8aUy3+PGNvbC N1xWF6eH2l AfHmElM6HBpcC846ZzNexL IpGenth2auf1wbwUb5MyMe CHNjtzZvdLlqTJY4u4YlBk 39L6VliKep i1FeJrz2ae62mDCvr2D9zG D3I5KwGLKcrlhinRVjfHxs FF6wSHFurxelPGPfwL7xPM NjZ6q9SfHk XyA7AIakK9QipdH7ZOKsyR QmDKNtlHJLdB0hcauez9jl dkbqVrCxMXWiDNe2WJa7TT FsaWduOiBs MLF0RaF1DSM6pJGulG6ayZ pgmfqtyR7tXfe+EAc8u9hz dQPmJZ5jmUB4QI71CB84kI Zcp0K0gPW0 B6NmUUMfgupccqgmoJI4AT KbBXAetA88Yv8huMrxFw8f ZDEbWFM4JWEfbLQoV9MsxJ 9yOiAjMDAw NPOsU3PihNMuEXlrY042HC yvJzA3GKEnhsKnL4MbTOKt kPulVjZ2x0F2Qh9DYJ69EC 57RT53tGUf a5X5sNZ6Y3MqCLYtqsbpgc acgRY4AMCdQFOdoA66Wf8z mKgcMe8hFZKpXSZ1KDLkqX VqE9ZszS8n AxBkPNDcTHSoG3ZrpBGfIM yjU780TAluJoH4JGUreoGq H3BkXVUrqCnsVuO5a4J3Av 3VQl41HA88 HL98cJIip4M6jYQ7R3FcJK EgayylnjqrjTI0HFFiMITf eJ14Pz9enArtKb7hBLAuBR R8WUZciZGb V6XnwP7rUbDtBFPxKFFrB2 XwpOAkLZdfB194SKtzLdI5 KNDgzuZnG2HeOUJkpTjwXb Q1h2Q0Ca0A IObjrsa6V5FxMqtnjCI+PC 75FPFxUL29lYQfkHLdc2ta jZb6MtAsCJNnLIW3nPkxCO zlf7KxPDNs Y29 (more content not included)... Normal [facility] ED Clinical Summaryon 2023 ED Clinical Summary [facility] ? Urgent Care [address] [place], [place] [id number] Clinical Summary PERSON INFORMATION Name: BONNIE ASTUDILLO Age: 23 Years Sex: FEMALE : 2000 MRN: Acct#: Visit Reason: Dental pain; UC - Dental Pain; DENTAL PAIN Arrival: 09/30/2023 14:27:41 Discharge: 09/30/2023 15:02:00 LOS: 000 00:35 Check In: 09/30/2023 14:27:41 Checkout: 09/30/2023 15:02:00 Address: [address] [facility] [address] PCP: Anthony Gomez MD PROVIDER INFORMATION Provider Role Assigned Unassigned Alysha Jay CARPENTER PROTOTYPE Nurse 09/30/2023 14:35:57 [facility] Fang ED PA [...] Pain Follow-Up: With: Address: When: Anthony Gomez [address] [place] [address] [phone] Business (1) Within 3 to 5 days [...] saltwater gargles. You may follow up with [facility] dental clinic at . You may follow up with [facility] [phone] ext: [phone]. You may also follow up with [facility] dental clinic at [phone]. You may call [facility] Dental in [facility] at [phone]. For adult dental emergencies please call [phone]. Return for worsening symptoms or concerns, spiking high fevers, redness going up or down side of face, swollen eyes, or any further questions. DIAGNOSIS: Dental infection; Elevated blood pressure reading without diagnosis of hypertension Patient Understands: Yes - Patient/family/caregiv er verbalizes understanding of instructions given Comment: Normal [facility] ED Patient Summaryon 024 ED Patient Summary [facility] ? Urgent Care [address] [place] [address] PATIENT DISCHARGE INSTRUCTIONS Patient Information Name: BONNIE ASTUDILLO Age: 23 Years Date of : 2000 Reason For Visit: Dental pain; UC - Dental Pain; DENTAL PAIN Arrival Time: 09/30/2023 14:27:41 Primary Care Physician: Anthony Gomez MD Attending Physician: Comment: Patient Education With: Address: When: Anthony Gomez [address] [place] [address] [phone] Business (1) Within 3 to 5 days [...] saltwater gargles. You may follow up with [facility] dental clinic at . You may follow up with [facility] [phone] ext: [phone]. You may also follow up with [facility] dental clinic at [phone]. You may call [facility] in [facility] at [phone]. For adult dental emergencies please call [phone]. Return for worsening symptoms or concerns, spiking [...] pressure or (more content not included)... Normal [facility] Urgent Care Note- Provideron 09-30-2023 Urgent Care [...] quit smoking cigarettes - 08/24/2019 12:13 - Mayte Benz RN 09/30/2023 Electronic Cigarette Use: Use, within last [...] has sign (more content not included)... Normal [facility] Urgent Care [place] 024 Urgent Care Record [facility] ? Urgent Care [address] [place] [address] PATIENT DISCHARGE INSTRUCTIONS Patient Information Name: BONNIE ASTUDILLO Age: 23 Years Date of : 2000 Reason For Visit: Dental pain; UC - Dental Pain; DENTAL PAIN Arrival Time: 09/30/2023 14:27:41 Primary Care Physician: Anthony Gomez MD Attending Physician: Comment: Visit Diagnosis: Diagnoses This Visit Dental infection (K04.7) Dental pain ([id number]) Elevated blood pressure reading without diagnosis of hypertension (R03.0) UC - Dental Pain ([id number]) If you received any narcotics, sedation, or [...] documents With: Address: When: Anthony Gomez [address] [place], [place] [id number] Business (1) Within 3 to 5 days [...] saltwater gargles. You may follow up with [facility] dental clinic at . You may follow up with [facility] [phone] ext: [phone]. You may also follow up with [facility] dental clinic at [phone]. You may call [facility] Dental in [facility] at [phone]. For adult dental emergencies please call [phone]. Return for worsening symptoms or concerns, spiking high fevers, redness going up or down side of face, swollen eyes, or any further questions. Medication Information: The exam and treatment you received today in the [facility] were for an urgent problem and are not intended as complete care. It is important for you to follow up with a doctor, nurse practitioner, or physician?s cleaner assistant for ongoing care. If your symptoms [...] so we can reach you if necessary. [facility] has provided you with a complete list of medications post discharge. Please inform your fender repairer/provider of your visit and for further instruction on these medications. Any specific questions regarding your chronic medications and dosages should be discussed with your primary care physician(s) and/or pharmacist. New Medications [facility] [id number], [address] [place], [place] [id number], [phone] amoxicillin (amoxicillin 500 mg oral tablet) 1 [...] the chakraborty o (more content not included)... Normal [facility] Mikael 01-04-2022 L -- ---- Specimen: [id number] Received: 01/05/22 Status: QUOC Garber Num: [id number] Spec Type: Surgical Subm Dr: Rodney Lema MD Tissues: A Skin-Other than Cyst, tag, debridement or plastic repair (SCALP) Procedures: HE Stain/5, Gross/Micro L4 ---- Patient Age/Sex Location Account Attending Physician ---- Bonnie Astudillo / [place] [id number] Rodney Lema MD ---- SPEC NUM: [id number] RECD: 01/05/22 STATUS: QUOC GARBER NUM: [id number] JANE: 01/04/[address] [facility] DR: Rodney Lema MD ENTERED: 01/05/22 [facility] DR: Dea,Amy SPEC TYPE: Surgical DEPT: MAG [...] Type of Fixative: 10% Neutral Buffered Formalin (ESTELA/YJ) ---- Specimen: [id number] Received: 01/05/22 Status: QUOC Garber Num: [id number] Spec Type: Surgical Subm Dr: Rodney Lema MD Tissues: A Skin-Other than Cyst, tag, debridement or plastic repair (SCALP) Procedures: HE Stain/5, Gross/Micro L4 ---- Patient: Bonnie Astudillo [id number] (Continued) ---- Specimen: [id number] Received: 01/05/22 (Continued) Signed (signature on file) Debora Cintron MD 01/07/22 0930 ---- Specimen: [id number] Received: 01/05/22 Status: QUOC Garber Num: [id number] Spec Type: Surgical Subm Dr: Rodney Lema MD Tissues: A Skin-Other than Cyst, tag, debridement or plastic repair (SCALP) Procedures: JASWINDER Ellison/Delta, Gross/Brooke L4 ---- Patient: Bonnie Astudillo [id number] (Continued) ---- Specimen: [id number] Received: 01/05/22 (Continued) Microscopic Description Six glass slides with H E stained material and two IHC stained slides have been examined. The microscopic findings support the above pathologic diagnosis. ANALYTE SPECIFIC REAGENT (ASR) DISCLAIMER: The use of one or more reagents in the above tests is regulated as an analyte specific reagent (ASR). The performance characteristics were determined by the [facility] of [facility]. Immunohistochemistry assays have not been validated on decalcified tissue. Results should be interpreted with caution given the possibility of false negative results on decalcified specimens. They have not been cleared by the US Food and Drug Administration. The FDA has determined that such clearance or approval is not necessary. CPT Codes 34115, 13431, 89910 ---- ---- Specimen: [id number] Received: 01/05/22 Status: QUOC Garber Num: [id number] Spec Type: Surgical Subm Dr: Rodney Lema MD Tissues: A Skin-Other than Cyst, tag, debridement or plastic repair (SCALP) Procedures: HE Stain/5, Gross/Micro L4 ---- Patient: Bonnie Astudillo [id number] (Continued) ---- Signed (signature on file) Debora Muller (more content not included)... [facility] Cytology Cervical or vaginal smear or scraping studyon 12-26-2019 [facility] Vital Signs Date Time Vital Sign Value Performing Clinician Faci lity 08-08-2024 11:09-0500 Body mass index (BMI) [Ratio] 39.37 kg/m2 Jdguanjia Work Phone: [facility] 08-08-2024 11:09-0500 Body weight 114.03 kg Jdguanjia Work Phone: [facility] 08-08-2024 11:09-0500 Diastolic blood pressure 72 mm[Hg] Jdguanjia Work Phone: [facility] 08-08-2024 11:09-0500 Systolic blood pressure 120 mm[Hg] Jdguanjia Work Phone: [facility] 07-10-2024 10:45-0500 Body mass index (BMI) [Ratio] 38.37 kg/m2 Jdguanjia Work Phone: [facility] 07-10-2024 10:45-0500 Body weight 111.13 kg Jdguanjia Work Phone: [facility] 07-10-2024 10:45-0500 Diastolic blood pressure 74 mm[Hg] Jdguanjia Work Phone: [facility] 07-10-2024 10:45-0500 Systolic blood pressure 118 mm[Hg] Jackie Celeste DO Work Phone: [facility] 06-07-2024 13:09-0400 Body mass index (BMI) [Ratio] 38.53 kg/m2 Nom Nurse [facility] 06-07-2024 13:09-0400 Body weight 111.58 kg [facility] Nurse [facility] 06-07-2024 13:09-0400 Diastolic blood pressure 72 mm[Hg] [facility] Nurse [facility] 06-07-2024 13:09-0400 Systolic blood pressure 116 mm[Hg] [facility] Nurse [facility] 10-06-2023 08:53-0500 Body height 170.2 cm Jackie Celeste DO Work Phone: [facility] 10-06-2023 08:53-0500 Body mass index (BMI) [Ratio] 38.28 kg/m2 Jackie Celeste DO Work Phone: [facility] 10-06-2023 08:53-0500 Body weight 110.86 kg Jackie Celeste DO Work Phone: [facility] 10-06-2023 08:53-0500 Diastolic blood pressure 72 mm[Hg] Jackie Celeste DO Work Phone: [facility] 10-06-2023 08:53-0500 Systolic blood pressure 120 mm[Hg] Jackie Celeste DO Work Phone: [facility] Healthcare Encounters Encounter Date Encounter Type Care Provider Facility Start: 08-08-2024 End: 08-08-2024 Bamboo flowsheet Jackie Celeste DO Work Phone: [facility] Start: 08-08-2024 End: 08-08-2024 Bamboo flowsheet Jackie Celeste DO Work Phone: [facility] Start: 08-08-2024 End: 08-08-2024 Office outpatient visit 15 minutes Jackie Celeste DO Work Phone: [facility] Comment on above: Well woman exam with routine gynecological exam; Second trimester ; 17 weeks gestation of ; Vaginal discharge; STD exposure; Screening, , for anatomic survey; Elevated glucose tolerance test Start: 08-08-2024 End: 08-08-2024 Patient encounter procedure Jackie Celeste DO Work Phone: [facility] Work Phone: Start: 07-31-2024 End: 07-31-2024 Clinisync Result Encounter Jackie Celeste DO Work Phone: [facility] External Department Unsolicited Start: 07-31-2024 End: 07-31-2024 Clinisync Result Encounter Jackie Celeste DO Work Phone: [facility] External Department Unsolicited Start: 07-10-2024 End: 07-10-2024 Bamboo flowsheet Jackie Celeste DO Work Phone: [facility] Start: 07-10-2024 End: 07-10-2024 Bamboo flowsheet Jackie Celeste DO Work Phone: [facility] Start: 07-10-2024 End: 07-10-2024 Office outpatient visit 15 minutes Jackie Celeste DO Work Phone: [facility] Comment on above: Second trimester pre gnancy; 13 weeks gestation of ; Nausea and vomiting in ; Diabetes mellitus screening Start: 07-10-2024 End: 07-10-2024 ambulatory JACKIE CELESTE Not Available Start: 07-05-2024 End: 07-05-2024 ambulatory [facility] Facility:[facility] Start: 07-04-2024 End: 07-04-2024 Clinisync Result Encounter Jackie Celeste DO Work Phone: [facility] External Department Unsolicited Start: 07-04-2024 End: 07-04-2024 Clinisync Result Encounter Jackie Celeste DO Work Phone: [facility] External Department Unsolicited Start: 06-07-2024 End: 06-07-2024 ambulatory [facility] Celeste Nurse [facility] Comment on above: GA: 8w6d Start: 06-01-2024 End: 06-01-2024 ambulatory Kulwant Bodie Facility:[facility] Start: 05-28-2024 End: 05-28-2024 Emergency department patient visit Evonne Cheung Facility:[facility] Start: 05-28-2024 End: 05-28-2024 ambulatory Anthony Santo Jason Facility:[facility] Start: 05-08-2024 End: 05-08-2024 ambulatory JACKIE CELESTE Not Available Start: 04-24-2024 End: 04-24-2024 Patient encounter procedure Kenya Richter DDS Work Phone: [facility] Comment on above: Abnormal tooth erupt ion (Primary Dx); Impacted third molar tooth Start: 04-24-2024 ambulatory KENYA RICHTER Facili ty:[facility] Start: 03-14-2024 End: 03-14-2024 ambulatory JACKIE R [facility] Facility:[facility] Start: 02-14-2024 End: 02-14-2024 ambulatory JACKIE R [facility] Facility:[facility] Start: 01-17-2024 End: 01-17-2024 ambulatory JACKIE R [facility] Facility:[facility] Start: 12-16-2023 End: 12-16-2023 ambulatory Anthony Santo Jason Facility:[facility] Start: 11-19-2023 End: 11-19-2023 Emergency department patient visit Kulwant Jason Facility:[facility] Start: 11-03-2023 End: 11-03-2023 ambulatory JACKIE CELESTE Not Available Start: 10-28-2023 End: 10-28-2023 ambulatory Kulwant Jason Facility:[facility] Start: 10-06-2023 End: 10-06-2023 Office outpatient new 20 minutes Jackie Celeste DO Work Phone: [facility] Comment on above: Irregular periods/me nstrual cycles; PCOS (polycystic ovarian syndrome); Insulin resistance Start: 10-06-2023 End: 10-06-2023 ambulatory JACKIE CELESTE Not Available Start: 09-30-2023 End: 09-30-2023 ambulatory Anthony Gomez Facility:[facility] Procedures Date Procedure Procedure Detail Performing Clinician Start: 08-08-2024 Urnls dip stick/tabl et rgnt non-auto w/o micrscp Emily TALBERT Work Phone: Start: 07-31-2024 GLUCOSE 1 HOUR Jackie Fa zio DO Work Phone: Start: 07-10-2024 Urnls dip stick/tabl et rgnt non-auto w/o micrscp Jackie Celeste DO Work Phone: Start: 07-04-2024 ALL CBC WITH AUTO DIFF Jackie Celeste DO Work Phone: Start: 06-07-2024 Urnls dip stick/tabl et rgnt non-auto w/o micrscp Jackie Celeste DO Work Phone: Start: 04-24-2024 panoramic radiograph ic image Pavan Lee DMD, MD Work Phone: Start: 12-26-2019 Cytp cerv/vag auto t hin layer prep mnl screen Deana J Nataprawira DO Work Phone: Plan of Treatment Date Care Activity Detail Author Start: 2048 Shingles (RZV) Vacci ne (1 of 2) Shingles (RZV) Vaccine (1 of 2) [facility] Start: 08-08-2024 End: 02-06-2025 Alpha fetoprotein, maternal Alpha fetoprotein, maternal Lab Routine Second trimester 17 weeks gestation of Expected: 08/08/2024 (Approximate), Expires: 02/06/2025 [facility] Comment on above: Expected: 08/08/2024 (Approximate), Expires: 02/06/2025 Start: 08-08-2024 End: 08-08-2025 Measurement of glucose 3 hours after glucose challenge for glucose tolerance test Glucose tolerance, 3 hours Lab Routine Elevated glucose tolerance test Expected: 08/08/2024 (Approximate), Expires: 08/08/2025 [facility] Healthcare Comment on above: Expected: 08/08/2024 (Approximate), Expires: 08/08/2025 Start: 08-08-2024 End: 08-08-2025 US for US OB ANATOMY SINGLE W US OB CERVICAL LENGTH Imaging Routine Screening, , for anatomic survey Expected: 08/08/2024 (Approximate), Expires: 08/08/2025 [facility] Comment on above: Expected: 08/08/2024 (Approximate), Expires: 08/08/2025 Start: 08-08-2024 End: 08-08-2024 Patient encounter procedure [facility] Comment on above: Arrived Start: 07-10-2024 End: 07-10-2025 Measurement of glucose 1 hour after glucose challenge for glucose tolerance test Glucose tolerance, 1 hour Lab Routine Diabetes mellitus screening Expected: 07/10/2024 (Approximate), Expires: 07/10/2025 [facility] Work Phone: Comment on above: Expected: 07/10/2024 (Approximate), Expires: 07/10/2025 Start: 07-10-2024 End: 07-10-2024 Patient encounter procedure [facility] Comment on above: Arrived Start: 07-04-2024 End: 07-04-2024 Patient encounter procedure 07/04/2024 3:00 PM EDT Office Visit [facility] [address] [place], [place] [id number] Kenya Richter, DDS [address] [place] [id number] [facility] Start: 06-07-2024 End: 06-07-2025 ABO/Rh ABO/Rh Lab Routine Missed menses , unspecified gestational age Expected: 06/07/2024 (Approximate), Expires: 06/07/2025 [facility] Comment on above: Expected: 06/07/2024 (Approximate), Expires: 06/07/2025 Start: 06-07-2024 End: 06-07-2025 Blood type and Indirect antibody screen panel - Blood Type and screen Lab Routine Missed menses , unspecified gestational age Expected: 06/07/2024 (Approximate), Expires: 06/07/2025 [facility] Work Phone: Comment on above: Expected: 06/07/2024 (Approximate), Expires: 06/07/2025 Start: 06-07-2024 End: 06-07-2025 Drugs of abuse panel - Urine by Screen method Rapid drug screen, urine Lab Routine , unspecified gestational age Encounter for supervision of normal first in first trimester Expected: 06/07/2024 (Approximate), Expires: 06/07/2025 [facility] Comment on above: Expected: 06/07/2024 (Approximate), Expires: 06/07/2025 Start: 06-07-2024 End: 06-07-2025 US Pelvis transvaginal US OB transvaginal Imaging Routine Missed menses Expected: 06/07/2024 (Approximate), Expires: 06/07/2025 [facility] Comment on above: Expected: 06/07/2024 (Approximate), Expires: 06/07/2025 Start: 06-05-2024 Influenza vaccination Influenza Vacc ine (#1) [facility] Start: 11-03-2023 End: 11-03-2023 Patient encounter procedure 11/03/2023 8:30 AM EST Office Visit [facility] [address] [place] [id number] Jackie Alonso DO [address] [place], [place] [id number] [facility] Start: 10-17-2023 End: 10-17-2023 Professional / ancillary services management 10/17/2023 8:30 AM EST Ancillary Procedure [facility] [address] [place] [id number] [facility] Start: 05-06-2023 COVID-19 Vaccine ( season) COVID-19 Vaccine ( season) [facility] Start: 2019 Screening for malign ant neoplasm of cervix Pap Smear [facility] Start: 2017 Hepatitis A (HAV) Vaccine (optional start 19+ years) Hepatitis A (HAV) Vaccine (optional start 19+ years) [facility] Start: 2017 Hepatitis B vaccination Hepati tis B (HBV) Vaccine (1 of 3 - 19+ 3-dose series) [facility] Start: 2016 Hepatitis C screening Hepatitis C An tibody [facility] Start: 2016 Tetanus + diphtheria + acellular pertussis vaccine (product) Tdap Booster [facility] Start: 2013 Vaccination for volodymyr n papillomavirus HPV Vaccine (1 - 3-dose series) [facility] Antimullerian hormon e (AMH) Antimullerian hormone (AMH) Lab Routine Irregular periods/menstrual cycles Ordered: 10/06/2023 [facility] Comment on above: Ordered: 10/06/2023 Bacteria identified in Urine by Culture Urine culture Microbiology Routine Missed menses Ordered: 06/07/2024 [facility] Comment on above: Ordered: 06/07/2024 CBC W Auto Different ial panel - Blood CBC and differential Lab Routine PCOS (polycystic ovarian syndrome) Ordered: 10/06/2023 [facility] Comment on above: Ordered: 10/06/2023 CBC W Auto Different ial panel - Blood CBC and differential Lab Routine Missed menses , unspecified gestational age Ordered: 06/07/2024 [facility] Comment on above: Ordered: 06/07/2024 CHLAMYDIA TRACHOMATI S (GENITO/STI) CHLAMYDIA TRACHOMATIS (GENITO/STI) Lab Routine STD exposure Ordered: 08/08/2024 [facility] Comment on above: Ordered: 08/08/2024 Cytology Cervical or vaginal smear or scraping study Pap Smear Pathology and Cytology Routine Well woman exam with routine gynecological exam Ordered: 08/08/2024 [facility] Comment on above: Ordered: 08/08/2024 DHEA DHEA Lab Routine PCOS (polycystic ovarian syndrome) Ordered: 10/06/2023 [facility] Comment on above: Ordered: 10/06/2023 DHEA-sulfate DHEA-sulfate Lab Routine PCOS (polycystic ovarian syndrome) Ordered: 10/06/2023 [facility] Comment on above: Ordered: 10/06/2023 Follicle stimulating hormone Follicle stimulating hormone Lab Routine PCOS (polycystic ovarian syndrome) Ordered: 10/06/2023 [facility] Comment on above: Ordered: 10/06/2023 hCG, quantitative, hCG, quantitative, Lab Routine PCOS (polycystic ovarian syndrome) Ordered: 10/06/2023 [facility] Work Phone: Comment on above: Ordered: 10/06/2023 Hemoglobin A1c measurement Hemoglobin A1c Lab Routine Irregular periods/menstrual cycles Ordered: 10/06/2023 [facility] Comment on above: Ordered: 10/06/2023 Hemoglobin A1c/Hemoglobin.total in Blood Hemoglobin A1c Lab Routine Missed menses , unspecified gestational age Ordered: 06/07/2024 [facility] Comment on above: Ordered: 06/07/2024 Hepatitis B virus surface Ag [Presence] in Serum or Plasma by Immunoassay Hepatitis B surface antigen Lab Routine Missed menses , unspecified gestational age Ordered: 06/07/2024 [facility] Comment on above: Ordered: 06/07/2024 Hepatitis C virus Ab [Presence] in Serum or Plasma by Immunoassay Hepatitis C antibody Lab Routine Missed menses , unspecified gestational age Ordered: 06/07/2024 [facility] Comment on above: Ordered: 06/07/2024 HIV-1/HIV-2 antigen/antibody combination immunoassay HIV-1 and HIV-2 antibodies Lab Routine Missed menses , unspecified gestational age Ordered: 06/07/2024 [facility] Comment on above: Ordered: 06/07/2024 Luteinizing hormone Luteinizing hormone Lab Routine PCOS (polycystic ovarian syndrome) Ordered: 10/06/2023 [facility] Comment on above: Ordered: 10/06/2023 Neisseria gonorrhoea e DNA [Presence] in Unspecified specimen by ISHA with probe detection Neisseria gonorrhea DNA probe, direct Lab Routine STD exposure Ordered: 08/08/2024 [facility] Comment on above: Ordered: 08/08/2024 Reagin Ab [Presence] in Serum by RPR RPR Lab Routine Missed menses , unspecified gestational age Ordered: 06/07/2024 [facility] Comment on above: Ordered: 06/07/2024 Rubella antibody, IgG Rubella an tibody, IgG Lab Routine Missed menses , unspecified gestational age Ordered: 06/07/2024 [facility] Comment on above: Ordered: 06/07/2024 SURESWAB(R) ADVANCED VAGINITIS PLUS, TMA SURESWAB(R) ADVANCED VAGINITIS PLUS, TMA Pathology and Cytology Routine Vaginal discharge Ordered: 08/08/2024 [facility] Work Phone: Comment on above: Ordered: 08/08/2024 Thyrotropin [Units/volume] in Serum or Plasma TSH Lab Routine PCOS (polycystic ovarian syndrome) Ordered: 10/06/2023 [facility] [employer] Comment on above: Ordered: 10/06/2023 Thyroxine (T4) free [Mass/volume] in Serum or Plasma T4, free Lab Routine PCOS (polycystic ovarian syndrome) Ordered: 10/06/2023 [facility] Comment on above: Ordered: 10/06/2023 US for US PELVIS-TRANS VAG IF INDICATED Imaging Routine PCOS (polycystic ovarian syndrome) Ordered: 10/06/2023 [facility] Comment on above: Ordered: 10/06/2023 Payers Date Payer Category Payer Medicaid [id number] 2022 Medicaid [id number] 2000 Unknown [id number] 2.16. [id number] 1998 Unknown [id number] 2.16.84 0.1.480500.3.579.2.9 1998 Unknown [id number] 2.16.84 0.1.843759.3.579.2.9 1998 Unknown [id number] 2.16.84 0.1.247747.3.579.2.9 1998 Unknown [id number] 2.16.84 0.1.310980.3.579.2.1258 1998 Unknown [id number] 2.16.84 0.1.358390.3.579.2.9 1998 Unknown [id number] 2.16.8 40.1.083494.3.579.2. 1998 Unknown [id number] 2.16.8 40.1.809723.3.579.2.8 1998 Unknown [id number] 2.16.8 40.1.311122.3.579.2.8 1998 Unknown [id number] 2.16.8 40.1.231512.3.579.2.718 1998 Unknown [id number] 2.16.8 40.1.390865.3.579.2.718 1998 Unknown [id number] 2.16.8 40.1.918942.3.579.2.718 1998 Unknown [id number] 2.16.8 40.1.528719.3.579.2.8 1998 Unknown [id number] 2.16.8 40.1.012932.3.579.2.718 1998 Unknown [id number] 2.16.8 40.1.391643.3.579.2.718 1998 Unknown [id number] 2.16.8 40.1.486270.3.579.2.718 1998 Unknown [id number] 2.16.8 40.1.995905.3.579.2.718 Social History Date Type Detail Facility Start: 09-15-2023 End: 05-08-2024 Tobacco smoking status [facility] Ex-smoker [facility] History of tobacco use Current smoker [facility] History of tobacco use Cigarette Smoker [facility] Start: 10-06-2023 End: 08-08-2024 Alcohol intake Lifetime non-drinker (finding) [facility] Start: 09-15-2023 End: 05-08-2024 History of Social function [facility] Start: 09-15-2023 End: 05-08-2024 Tobacco use panel [facility] Start: 09-15-2023 Alcohol Comment caffeine: 1-2 cups p er day [facility] Start: 1998 Sex Assigned At Not on file [facility] Tobacco smoking stat [facility] Tobacco smoking consumption unknown [facility] Start: 05-08-2024 Tobacco use and exposure Smokeless t obacco non-user [facility] Start: 04-20-2024 [facility] Clinical Notes 09-30-2023 to 08-08-2024 NITISH Rojas - 08/08/2024 10:50 AM Obie Xavier LPN - 07/10/2024 10:10 AM Tha Reeder, MA - 06/07/2024 1:00 PM Jessica Ma - 04/24/2024 2:34 PM EDT Note Date & Type Note Facility 08-08-2024 History of Presen t illness Narrative Reason for Appointment: Patient ID: Bonnie Astudillo is a 24 y.o. female who presents for Well Women Visit, Routine Visit, and STI Screening Patient presents today for Return OB appointment. MEDICATIONS Current Outpatient Medications Medication Instructions metFORMIN XR (GLUCOPHAGE-XR) 500 mg, Oral, Daily with evening meal, Do not crush, chew, or split. ondansetron ODT (ZOFRAN-ODT) 4 mg, Oral, Every 6 hours PRN ALLERGIES No Known Allergies PROBLEMS Active Ambulatory Problems Diagnosis Date Noted Encounter to discuss test results 11/03/2023 Irregular periods/menstrual cycles 11/03/2023 Insulin resistance 11/03/2023 PCOS (polycystic ovarian syndrome) 11/28/2023 Resolved Ambulatory Problems Diagnosis Date Noted No Resolved Ambulatory Problems Past Medical History: Diagnosis Date Ankle fracture, left History of medical problems HISTORY PAST MEDICAL HISTORY SOCIAL HISTORY Past Medical History: Diagnosis Date Ankle fracture, left History of medical problems unsure of varicella zoster had vaccine Social History Tobacco Use Smoking status: Former Current packs/day: 0.00 Types: Cigarettes Smokeless tobacco: Never Substance Use Topics Alcohol use: Never Comment: caffeine: 1-2 cups per day Drug use: Not Currently Types: Marijuana Comment: Stopped after she found out she was FAMILY HISTORY Family History Problem Relation Name Age of Onset Leukemia Mother Magnolia Jackson as a child Endometriosis Mother Magnolia Jackson Diabetes Mother Magnolia Jackson Depression Father Hypertension Father Diabetes Maternal Grandmother Geovanna Monreal SURGICAL HISTORY Past Surgical History: Procedure Laterality Date CHOLECYSTECTOMY 09/16/2020 REVIEW OF SYSTEMS Review of Systems: Review of Systems Constitutional: Negative. HENT: Negative. Eyes: Negative. Respiratory: Negative. Cardiovascular: Negative. Gastrointestinal: Negative. Genitourinary: Negative. Musculoskeletal: Negative. Skin: Negative. Neurological: Negative. All other systems reviewed and are negative. Hematological: Negative. Endocrine: Negative. Allergic/Immunologic: Negative. OBJECTIVE Objective: Physical Exam Constitutional: Appearance: Normal appearance. She is normal weight. HENT: Head: Normocephalic. Cardiovascular: Rate and Rhythm: Normal rate. Pulses: Normal pulses. Pulmonary: Effort: Pulmonary effort is normal. Breath sounds: Normal breath sounds. Abdominal: Palpations: Abdomen is soft. Musculoskeletal: General: Normal range of motion. Neurological: General: No focal deficit present. Mental Status: She is alert and oriented to person, place, and time. Psychiatric: Mood and Affect: Mood normal. Behavior: Behavior normal. Thought Content: Thought content normal. Judgment: Judgment normal. Vitals and nursing note reviewed. Vitals: Estimated body mass index is 39.37 kg/m as calculated from the following: Height as of 24: 5' 7 . Weight as of this encounter: 251 lb 6.4 oz. BP: 120/72 Patient's last menstrual period was 04/06/2024. ASSESSMENT & PLAN ICD-10-CM 1. Well woman exam with routine gynecological exam Z01.419 Pap Smear 2. Second trimester Z34.92 POCT urinalysis dipstick manually resulted Alpha fetoprotein, maternal Alpha fetoprotein, maternal 3. 17 weeks gestation of Z3A.17 Alpha fetoprotein, maternal Alpha fetoprotein, maternal 4. Vaginal discharge N89.8 SURESWAB(R) ADVANCED VAGINITIS PLUS, TMA 5. STD exposure Z20.2 CHLAMYDIA TRACHOMATIS (GENITO/STI) Neisseria gonorrhea DNA probe, direct 6. Screening, , for anatomic survey Z36.89 US OB ANATOMY SINGLE W US OB CERVICAL LENGTH 7. Elevated glucose tolerance test R73.09 Glucose tolerance, 3 hours Glucose tolerance, 3 hours Return OB: Patient presents today for a routine obstetrics appointment. Patient is currently 17w5d . Patient states she is doing well but has complaints of being tired due to current . Patient has verbalizes frequent movement. Orders Placed This Encounter Procedures US OB ANATOMY SINGLE W US OB CERVICAL LENGTH CHLAMYDIA TRACHOMATIS (GENITO/STI) Neisseria gonorrhea DNA probe, direct Alpha fetoprotein, maternal Glucose tolerance, 3 hours POCT urinalysis dipstick manually resulted Follow Up: Patient is to return to office in 4 week for routine OB appointment. Documented by NITISH Rojas on behalf of: Jackei Alonso DO documented in this encounter [facility] 07-10-2024 History of Presen t illness Narrative Reason for Appointment: Patient ID: Bonnie Astudillo is a 24 y.o. female who presents for Routine Visit Patient presents today for Return OB appointment. MEDICATIONS Current Outpatient Medications Medication Instructions metFORMIN XR (GLUCOPHAGE-XR) 500 mg, Oral, Daily with evening meal, Do not crush, chew, or split. ondansetron ODT (ZOFRAN-ODT) 4 mg, Oral, Every 6 hours PRN ALLERGIES No Known Allergies PROBLEMS Active Ambulatory Problems Diagnosis Date Noted Encounter to discuss test results 11/03/2023 Irregular periods/menstrual cycles 11/03/2023 Insulin resistance 11/03/2023 PCOS (polycystic ovarian syndrome) 11/28/2023 Resolved Ambulatory Problems Diagnosis Date Noted No Resolved Ambulatory Problems Past Medical History: Diagnosis Date Ankle fracture, left History of medical problems HISTORY PAST MEDICAL HISTORY SOCIAL HISTORY Past Medical History: Diagnosis Date Ankle fracture, left History of medical problems unsure of varicella zoster had vaccine Social History Tobacco Use Smoking status: Former Current packs/day: 0.00 Types: Cigarettes Smokeless tobacco: Never Substance Use Topics Alcohol use: Never Comment: caffeine: 1-2 cups per day Drug use: Not Currently Types: Marijuana Comment: Stopped after she found out she was FAMILY HISTORY Family History Problem Relation Name Age of Onset Leukemia Mother Magnolia Jackson as a child Endometriosis Mother Magnolia Jackson Diabetes Mother Magnolia Jackson Depression Father Hypertension Father Diabetes Maternal Grandmother Geovanna Monreal SURGICAL HISTORY Past Surgical History: Procedure Laterality Date CHOLECYSTECTOMY 09/16/2020 REVIEW OF SYSTEMS Review of Systems: Review of Systems Constitutional: Negative. HENT: Negative. Eyes: Negative. Respiratory: Negative. Cardiovascular: Negative. Gastrointestinal: Negative. Genitourinary: Negative. Musculoskeletal: Negative. Skin: Negative. Neurological: Negative. All other systems reviewed and are negative. Hematological: Negative. Endocrine: Negative. Allergic/Immunologic: Negative. OBJECTIVE Objective: Physical Exam Constitutional: Appearance: Normal appearance. She [...] nursing note reviewed. Exam conducted with a laborer stores present. Vitals: Estimated body mass index is 38.37 kg/m as calculated from the following: Height as of 05/08/24: 5' 7 . Weight as of this encounter: 245 lb. BP: 118/74 Patient's last menstrual period was 04/06/2024. ASSESSMENT & PLAN ICD-10-CM 1. Second trimester Z34.92 POCT urinalysis dipstick manually resulted 2. 13 weeks gestation of Z3A.13 3. Nausea and vomiting in O21.9 ondansetron ODT (Zofran-ODT) 4 MG disintegrating tablet New OB: Patient presents today for 1st time obstetrics appointment with provider. Patient is currently 13w4d . Patients history has been reviewed in great detail including any potential risks. Patient stated she currently has no complaints. Expectations throughout regarding labs, ultrasounds, and appointments have been discussed with the patient in detail. It was reiterated that the patient is to drink 6-8 glasses of water a day, eat 6 small meals a day, do not consume raw or undercooked meat, and stay away from [facility]. Patient has been consulted regarding any further do's and don'ts of . Patient voiced understanding and all questions and concerns were answered. Pt to start baby aspirin daily. Orders Placed This Encounter Procedures POCT urinalysis dipstick manually resulted Follow Up: Patient is to return in 4 weeks for routine OB appointment. Documented by Bailey Xavier LPN on behalf of: Jackie Alonso DO documented in this encounter [facility] 07-05-2024 Note Patient Education Ma terials Follows:and Gynecology Vaginitis Vaginitis is irritation and swelling of the vagina. Treatment will depend on the cause. What are the causes? It can be caused by: ? Bacteria. ? Yeast. ? A parasite. ? A virus. ? Low hormone levels. ? Bubble baths, scented tampons, and feminine sprays. Other things can change the balance of the yeast and bacteria that live in the vagina. These include: ? Antibiotic medicines. ? Not being clean enough. ? Some control methods. ? Sex. ? Infection. ? Diabetes. ? A weakened body defense system (immune system). What increases the risk? ? Smoking or being around someone who smokes. ? Using washes (douches), scented tampons, or scented pads. ? Wearing tight pants or thong underwear. ? Using control pills or an IUD. ? Having sex without a condom or having a lot of partners. ? Having an STI. ? Using a certain product to kill sperm (nonoxynol-9). ? Eating foods that are high in sugar. ? Having diabetes. ? Having low levels of a female hormone. ? Having a weakened body defense system. ? Being or . What are the signs or symptoms? ? Fluid coming from the vagina that is not normal. ? A bad smell. ? Itching, pain, or swelling. ? Pain with sex. ? Pain or burning when you pee (urinate). Sometimes there are no symptoms. How is this treated? Treatment may include: ? Antibiotic creams or pills. ? Antifungal medicines. ? Medicines to ease symptoms if you have a virus. Your sex partner should also be treated. ? Estrogen medicines. ? Avoiding scented soaps, sprays, or douches. ? Stopping use of products that caused irritation and then using a cream to treat symptoms. Follow these instructions at home: Lifestyle ? Keep the area around your vagina clean and dry. ? Avoid using soap. ? Rinse the area with water. ? Until your doctor says it is okay: ? Do not use washes for the vagina. ? Do not use tampons. ? Do not have sex. ? Wipe from front to back after going to the bathroom. ? When your doctor says it is okay, practice safe sex and use condoms. General instructions ? Take xdjy-rgq-ojxavfq and prescription medicines only as told by your doctor. ? If you were prescribed an antibiotic medicine, take or use it as told by your doctor. Do not stop taking or using it even if you start to feel better. ? Keep all follow-up visits. How is this prevented? ? Do not use things that can irritate the vagina, such as fabric softeners. Avoid these products if they are scented: ? Sprays. ? Detergents. ? Tampons. ? Products for cleaning the vagina. ? Soaps or bubble baths. ? Let air reach your vagina. To do this: ? Wear cotton underwear. ? Do not wear: ? Underwear while you sleep. ? Tight pants. ? Thong underwear. ? Underwear or nylons without a cotton panel. ? Take off any wet clothing, such as bathing suits, as soon as you can. ? Practice safe sex and use condoms. Contact a doctor if: ? You have pain in your belly or in the area between your hips. ? You have a fever or chills. ? Your symptoms last for more than 2?3 days. Get help right away if: ? You have a fever and your symptoms get worse all of a sudden. Summary ? Vaginitis is irritation and swelling of the vagina. ? Treatment will depend on the cause of the condition. ? Do not use washes or tampons or have sex until your doctor says it is okay. This information is not intended to replace advice given to you by your health care provider. Make sure you discuss any questions you have with your health care provider. Document Revised: 02/19/2021 Document Reviewed: 02/19/2021 [employer] Patient Education ? 2023 [email or web address]. [facility] 06-07-2024 History of Presen t illness Narrative Reason for Appointment: Patient ID: Bonnie Astudillo is a 24 y.o. female who presents for Amenorrhea Patient presents today for a Nurse OB Intake appointment. Patient is 8w6d with a Estimated Date of Delivery: 01/11/25 OB History Para Term AB Living 2 1 1 SAB IAB Ectopic Multiple Live Births # Outcome Date GA Lbr Fito/2nd Weight Sex Type Anes PTL Lv 2 Current 1 Para Vag-Spont Obstetric Comments Last pap smear 12/26/19 [facility] w/Dr. Lelbanc Current Medications: has a current medication list which includes the following prescription(s): metformin xr and ondansetron odt. Medical History: Active Ambulatory Problems Diagnosis Date Noted Encounter to discuss test results 11/03/2023 Irregular periods/menstrual cycles 11/03/2023 Insulin resistance 11/03/2023 PCOS (polycystic ovarian syndrome) 11/28/2023 Resolved Ambulatory Problems Diagnosis Date Noted No Resolved Ambulatory Problems Past Medical History: Diagnosis Date Ankle fracture, left History of medical problems Family History Problem Relation Name Age of Onset Leukemia Mother Magnolia Jackson as a child Endometriosis Mother Magnolia Jackson Diabetes Mother Magnolia Jackson Depression Father Hypertension Father Diabetes Maternal Grandmother Geovanna Monreal Social History Tobacco Use Smoking status: Former Current packs/day: 0.00 Types: Cigarettes Smokeless tobacco: Never Substance Use Topics Alcohol use: Never Comment: caffeine: 1-2 cups per day Drug use: Not Currently Types: Marijuana Comment: Stopped after she found out she was Past Surgical History: Procedure Laterality Date CHOLECYSTECTOMY 09/16/2020 No Known Allergies Vitals: Estimated body mass index is 38.53 kg/m as calculated from the following: Height as of 05/08/24: 5' 7 . Weight as of this encounter: 246 lb. BP: 116/72 Patient's last menstrual period was 04/06/2024. Assessment/Plan Diagnoses and all orders for this visit: Missed menses - Type and screen; Future - ABO/Rh; Future - CBC and differential - Hemoglobin A1c - RPR - Rubella antibody, IgG - Hepatitis B surface antigen - Hepatitis C antibody - HIV-1 and HIV-2 antibodies - Urine culture - US OB transvaginal; Future - POCT , urine manually resulted - POCT urinalysis dipstick manually resulted , unspecified gestational age - Type and screen; Future - ABO/Rh; Future - CBC and differential - Hemoglobin A1c - RPR - Rubella antibody, IgG - Hepatitis B surface antigen - Hepatitis C antibody - HIV-1 and HIV-2 antibodies - Rapid drug screen, urine; Future Encounter for supervision of normal first in first trimester - Rapid drug screen, urine; Future 8 weeks gestation of Nausea and vomiting in - ondansetron ODT (Zofran-ODT) 4 MG disintegrating tablet; Take 1 tablet (4 mg) by mouth every 6 (six) hours if needed for nausea or vomiting Nurse Note: Pt was given OB folder and desires unity 21. Advised to have both done at the same time at [facility] at 10 weeks . Pt desires zofran due to nausea in this . Follow Up: Patient is to have labs drawn at directed and return to office for initial OB appointment with provider. Patient may call office as needed with any concerns or questions. Nurse Visit Completed by: Bernadette Reeder MA documented in this encounter [facility] 05-28-2024 Note Education Materials Orthopedics Muscle Strain [...] not too tight. General instructions ? Take xvfz-eka-gcurzul and prescription medicines only as told by [...] provider. Document Revised: 11/09/2021 Document Reviewed: 11/09/2021 [employer] Patient Education ? 2023 [employer] Sciatica Sciatica is pain, weakness, tingling, or [...] (pelvis). ? . (more content not included)... [facility] 05-28-2024 Note Patient Education Materials Foll ows: [facility] 04-24-2024 History of Presen t illness Narrative Images from the original note were not included. documented in this encounter [facility] 11-19-2023 Note Education Materials Caregiving Sterile Tape [...] and water are not available, use hand hospital ward clerk. ? Change your dressing as told by [...] these instructions at home: Medicines ? Take wdbw-jbr-lwyodcz and prescription medicines only as told by [...] C. This informatio (more content not included)... [facility] 10-06-2023 History of Presen t illness Narrative [...] nursing note reviewed. Exam conducted with a laborer stores present. Vitals: Estimated body mass index is [...] PCOS/insulin resistance and medication was sent to [facility] in [place]. Documented by Rose Latham LPN on behalf of: Jackie Alonso DO documented in this encounter [facility] 09-30-2023 Note Patient Education Ma terials Follows: [...] wine (148 mL (more content not included)... [facility] Evaluation note Diagnosis Irregular periods/menstrual cycles PCOS (polycystic ovarian syndrome) Polycystic ovaries Insulin resistance Other abnormal glucose [facility] Diagnosis Abnormal tooth eruption- Primary Disturbances in tooth eruption Impacted third molar tooth Disturbances in tooth eruption [facility] Missed menses , unspecified gestational age Encounter for supervision of normal first in first trimester 8 weeks gestation of Nausea and vomiting in Unspecified vomiting of , unspecified as to episode of care documented in this encounter [facility]* Diagnosis Second trimester state, incidental 13 weeks gestation of Nausea and vomiting in Unspecified vomiting of , unspecified as to episode of care Diabetes mellitus screening Screening for diabetes mellitus [facility] Diagnosis Well woman exam with routine gynecological exam Routine gynecological examination Second trimester state, incidental 17 weeks gestation of Vaginal discharge Leukorrhea, not specified as infective STD exposure Screening, , for anatomic survey Encounter for anatomic survey Elevated glucose tolerance test Impaired glucose tolerance test documented in this encounter [facility] Healthcare Summary Purpose Family History No Family History [...] Abnormal tooth eruption Impacted third molar tooth eKnya Richter, DDS [address] [place] [address] Referral ID Status Reason Start Date Expiration Date V isits Requested Visits Authorized [id number] Pending Review 04/24/2024 04/24/2025 1 1 Scheduling [...] your procedure, you will be contacted with [id number] costs or next steps. All self-pay payments [...] the procedure: You also MUST have a flatbed driver/escort >18yrs old present to take you [...] CREATED AUTHOR AUTHOR'S ORGANIZ ATION 05/03/2024 [facility] DATE CREATED AUTHOR AUTHOR'S ORGANIZ ATION 07/11/2024 [facility] EPIC DATE CREATED AUTHOR AUTHOR'S ORGANIZ ATION 07/17/2024 [facility] Reason for Visit (unrecogniz ed section and content) Reason Comments Discuss cycles Reason Comments Amenorrhea Reason Comments Routine Visit Reason Comments Well Women Visit Routine Visit STI Screening Care Teams (unrecognized sec tion and content) Hand Carver Relationship Specialty Start Date End Date Anthony Gomez MD [address] [place] [address] PCP - General Pediatrics 10/06/23 Hand Carver Relationship Specialty Start Date End Date Anthony Gomez MD [address] [place] [id number] PCP - General Pediatrics 10/06/23 Hand Carver Relationship Specialty Start Date End Date Anthony Gomez MD [address] [place] [id number] PCP - General Pediatrics 10/06/23 Hand Carver Relationship Specialty Start Date End Date Anthony Gomez MD [address] [place] [id number] PCP - General Pediatrics 10/06/23 Hand Carver Relationship Specialty Start Date End Date Anthony Gomez MD [address] [place] [id number] PCP - General Pediatrics 10/06/23 Hand Carver Relationship Specialty Start Date End Date Anthony Gomez MD [address] [place] [id number] PCP - General Pediatrics 10/06/23 FOR RECORDS [...] BE BASED ON THE PRIMARY CLINICAL RECORDS. [facility]. provides no warranty or guarantee of the accuracy or completeness of information in this document.
== END 2024-08-08 19:30 | disposition home or self-care (01) ==
LOC: LAB 19:29
PROVIDERS: PCP Family Medicine; Visit Provider Physician Assistant
DX: Z01.419 Encounter for gynecological examination (general) (routine) without abnormal findings (principal)
CPT/HCPCS: 88175

== ENCOUNTER 2024-08-10 06:57 | Outpatient (OUT) | payer MEDICAID, SELFPAY ==
--- OUTSIDE RECORDS SUMMARY | 2024-08-10 07:00 | XMS_ITS | CCD ---
Author Organization [facility] CliniSyut Care Team Providers Care Hall Monitor Name Role Phone Anthony Gomez MD Primary Care Provider [phone] Unavailable Primary Care Provider UnavailKENYA Gonzales Attending Unavailable PROVIDER, UNKNOWN Admitting Unavailable CELESTE, JACKIE Attending Unavailable CELESTE, JACKIE Attending Unavailable CELESTE, JACKIE Attending Unavailable CELESTE, JACKIE Attending Unavailable Evonne [...] Propensity to adverse reactions to drug (disorder) [facility] Repository Medications Current Medications Medication [...] UA Negative Negative - 4(70) +++ mg/dL [facility] Blood, UA Negative Negative - 50 Osvaldo/mcL [facility] Clarity, UA Clear [facility] Color, UA Yellow [facility] Glucose, UA Negative Negative - 1999(110) ++++ mg/dL [facility] Interpretation and review of laboratory results Normal [facility] Ketones, UA Negative Negative - 160(16) ++++ mg/dL [facility] Leukocytes, UA Negative Negative - 500+++ Edison/mcL [facility] Nitrite, UA Negative Negative - Positive [facility] pH, UA 5.5 5 - 9 [facility] Protein, UA Negative Negative - 1999(20) ++++ mg/dL [facility] Spec Grav, UA 1.02 1 - 1.03 [facility] Urobilinogen, UA 1.0 0.2 - 12 mg/dL [facility] GLUCOSE 1 HOURon 07-31-2024 Glucose [Mass/Vol] 132 mg/dL High NINF - 13 0 mg/dL [facility] Interpretation and review of laboratory results Abnormal [facility] CLINISYNC [facility] Coding Summaryon 07-16-2024 Coding Summary HTMLBase 64 JhghvxvnRZi4tBn+PGhlYW Q+SY3JCSQnB04sdDCteX5t F1KSBVlKFceiUFPTUJjOWc GnqjGxBT2cmCZfRRCr IC8+ME1rCKDeNmhurCCqy9 M2kHL9A24fuh7jVAkloKR0 YXGjCuDlwzqmp8hbxDs3EQ cuNmluOyBt MMWhoZ75OWW3lJ09Vq27zS FykAFgu0nvtJe8LeEoEIGe MRT2oRxyLZsbq1PfRKAnQ1 7pzBGpi8B3 MEDpbJcgbSCeSfVamSU7hT 4eBMeujlkmm7ehbzflGhi0 ut35jGAnl7H5hOL8V5Smac D2FZKyfJIk ZpxvpXGTeO4qnhqyc0nfjr ocCxPbKHKcKYz0DZs3WCIr pHrpCpYaHK59KMN7GKFqsr QkW2BmGMLd rQbeWpM4i5J1Cd8MT2UWYc ysH6NEUKBRSXnwoNB+PC90 yi85Z4WjTddhHor0PLBtPX Y8jZR5tV2j KZLqDMmft3L8cDE2O0Yyud Qbxb8jr7doCJZbHCwgA24d sRTzh0X3BWXenEM6PVXwhJ ntPzMxmG65 Oyc+KKAlfQybc4YsVunla1 lzg8tizAi7BglwDUWgvnRw eJucAON1m7IqNo9xEYKjsM L5oOT2eN9x SfTpTsZ5ZXtcA091OdJiaZ VtSfsaC25lF6XvcSU+PHRy Quu7ZSYmiQwaSN7oL1PjON RpbmctbGVm qGyxWL4uNHHnzfwrERPsiQ 4hYBQbW9s9GpYaYfU4AKgw Q0RdNEMfklkfCx50jV2qUu DkVfF1JWtk F3PoujD5FZXyyOZuVIamAF A2L99hg1V9OCEeZJTnLXE5 nEI9wA3jyDdzndvalGIweH sgdmVydGlj ECjzGFqnN848MLNebEprVe NvZGluZyBEYXRlOiAgMTEv MTEvMjAyNDwvdGQ+PHRkIH V6aTpqFCJu qTCkOPtgPh9vlQfacJvwSO 6sHGQjymonAFUpyF2cUDEr zSUuyDykER9rSWUbiousq5 46JdMlKAU3 SNQziMSvY9KtxL4lMcPtNL FjPDPsF6XriNCxJAexG597 NTkyIyB2IUCixcQxJ8CfEH FsaWduOiB0 a1X9Mz4Vz7RklxehI6VlwF SoQbPsFjzuVTu8W6LqWhtq dHI+AW33SIKwCK76SQt6TI V4mAwwAOnq ZJPnI3CjpC5pYaXcPJZxTT RkOyc+PHRhYmxlIHdpZHRo JMacGYOgFfEjpIxvUC7dQy 9yZGVyLWNv pUxqyBPuCpIdn2giVYMsJJ gxNL1tpEcpD5DawIO6NFGy t9n8Ux04F04kY9KyyDA+PG UgfOT1nLQ0 sE3sAsImCyI0WRrhA388Ve KhyQHvWgkaw4nxd2yxpXk0 RgN7NFAqxxWchFteYTW9h5 NxEt08P48k IHdpZHRoPSIxNSUiIHZhbG ujum7dbR9oDk2+PGNvbCB3 pSA3oU7qIqJmZzX1NFjuN4 49InRvcCIv Tvrpo6afp2enlNg6ZfPfYT EpxbDtlKxcYZJ8z0ZkDb16 O5FljCzck4FgJdc3yy52kR Uvd5N6eCX6 Y8IqBCIaexwccTBimVusYK 5lBWPaocdqRVCajP7gTFUj D4b7EsVgDaN3IQjsG3Fjaq D3WAUyhEXd YUDzbSMGwX8fobzvj1nimu wpAwZlKSNbFLy8XIk3FXNi bKnzKeNyEXJ8ZzO6BGM1wP VolF0cqUag hxbqbW1mEpc+SKV9yUOnwU PVRK0kOqobdTO+PHRkIHN0 zQjiZBivDWKpbT5qWRSjL4 x7XiGmXoZ8 KPqrX7FwnwX0KMZasRIgNM MfiOQVeW4avlvjc0kxqurr EhXtWYOfSGo9LYz9BEBdgX duOiBsZWZ0 LiF1XPS8uTEbmN3qkIevus pwfP9oYjy+QmlydGggRGF0 CXl1G6BuOep2JWEjdYikEJ 0ncGFkZGlu Mt9zlHgchTnnCL4zLVWzwl puv368CoYfv5lhCVPfdCJj JObnMGU6X42jr2D7CQXtLW TyRJI8sCO4 iZ9crDuegnyqnYNwbLuurw YuiEvvCKdbDQfrP091WKBy lCylLzIrHJk1I0IuCaf6XG CrwKgjRT2i nTNcWMxbLr9hmClhsOirQL 9qGEJtxzjve799QrRzp6dw TWSxxDVgMFawQRO1Z19fv8 R8NNHbIUHy QFU6xES7uO3fqWllaqpwlY VmdDsgdmVydGljYWwtYWxp C465ARQogFsjQxHpmWp7W0 EnUtz9FDHq oDcsJL0akAQqBNpvQk0bzP tfdDctPO0mGZIlxslgn897 QaYnm7kmYLGltLSySZpxHV T9L22sb7U4 WQWmLOFsBNQ6cSK3qJ9tyR lnbjogbGVmdDsgdmVydGlj SBbySSigQ901HPDxaWaoEj BhdGllbnQg NIyxVGb5I2CmGdhrpMP+PC 79HDSyKS42tONxnUQia3ut nZo1PjGoQDRhDOH5bIloQV oex5TsGSBn G87eoIHnm2H2PISvbCkhoI EtOjKeeBW3eO5yBFdfwodf o2rthocnTlizl1ltdg86eD 26G41wXLwi ZHRoPSIzMCUiIHZhbGlnbj 7tpG9lFx8+ORGlcJP1dKB5 gK0yMHHoWsQ7WFkuY551Oz RvcCIvPjxj j8gro7nyvCi0HnY8MRXinx PzmIufWUH7s5AvJg33A45j IHdpZHRoPSIyMCUiIHZhbG rgcx5rpZ3d Ii8+NTVhfNQ9fLX5cD6pTi HvLbC2OJlhO961OrAjdEXs TpqaO85mY4LfbIK+PHRyPj s8UQBqrPyq SI1icROrBXdfGd0yTXL0Mb FkGtZuKJmzG5UhHEKfmsrk pvpduHV9WNYkLYUccX37Sh 9udDogMTBw dLCJuU7oelbtc2gpycmsEu NtGYDjYBn3LUi7JJFofCen ClDsGCM0HcP5IVK3aWUopN 1hbGlnbjog wA2xD5WgQQEhpvqeFa79jB 6zNlLzWbI7PWihUov+Q1JB B8APGiQxSTPOXCBFZhVhJU lDSEVMTEU8 U4SeNtn1KIUvgSniDT1ixV SfVMoxAc5roXvamVyzPK7g OJFzltmuHWPquY4xDNPduK EiwRoxRY9l CUAuzvmyn996RiIyXEC0SI LyxKGfD8CdhF8aVsYcYMKl PSKnA8WpqDJpAJvgP178JZ dnUnG7CCOj dlTrD8ZuTXFqjJihIvO6a4 G9Im5iSu7pBZ5fOGv0EO98 ZJ32wIIkm2D2dAZ8I7VdJO Rpbmctcmln xFK8TBDeCZQiyW95yBVoWH opKm7xs0J3d634BGNzQFFo sY33Gk8wjPjcZQGysPFZsP 7cpiqwr2eg brdsGtWfFZDdTLa7ZIp2PX CbfTiuKeTqGNR1VfS6DYA9 zMLrsB3scAfckxtuzM2xAm c+MjYgWWVh xuF7Y0PqTcy3WOEktKnvAU 0yuSTiZFkcLf8avMojuYgg PS4sXFWvdqdqCFDotR2gZS JvdHRvbTog MM3aALGprbwiy425MhWgNF K9UZMueATlF4LcnF2wMqKx TQMjHZTiK9ElbJYpIIihR2 17PPauLfM5 TBRthoHeY3RiMQYfdKztQm H7j4D4Xm7RWJ6EQDQ1S7Aa Gyg5YQVlvHhsFZ0mjUHdLT auDz9iyIph vBmyBW9uHIBgdduwLTSooM 3sUYVweNSqyKusIH3hGMQa flpfd669TrFaTAG9XLSiiQ LvU5ChfN9k LcPnCMVnQBJhR8DnlNJiQS trI010WAeaJzW8MKBrcxRw X5UtFQHleGhwUlT2e0B1Su 5PUDwvdGQ+ NG07fs19D4WiClosOgx3BR NyHUZ8sYU9nL1qHWHjSNvd q1F5bJI5H4VrudJkwg2sp3 xsYXBzZTog E69dxVEoh7V4GTQckBR0AD MxhBoiBkNpcY54Peb+PGNv eClfl3CmSqhtc5mgu9yxuO s4IjPjVITu nkZgfReoFZA1j7AyXs14L1 9sIHdpZHRoPSIzMCUiIHZh oXswmq2uxU4mEi3+PGNvbC X8tYJ1tG2y YiOvXqS5SDpwT650SqQhqS ZdAwxlv5qkg0rlrOo9OmEy UIIkyjTdnAjbGKQ9p9NsDd 37B0NvfXwh x3FhHtg5tk92mREts4A5fX T0J8PrACLyboyzxGErtFrz HA0wNMLmetrkFQLeeP2pMD CtA7i3RyMx ZkH0LDaiN4TxgrE3QYNbiZ XrCUOooXJEgT1mhjoob9tz foegXjWeLECqTKv7ZTb6AU FsaWduOiBs FTR9JlO8HUS8sDHaiO4xaA yrsoepaE9jEut+TRg3i2oz oVOsZO6vpMM6XR44KY37aL Vux8B5fCE5 N6GiXYFaujmoqdpctWD4WD FnPBHtdC56Au9kwQevOq7f IIFvKMG6DCNbvAVnU4WhuI 9yOiAjMDAw SYPvK5ChpAGaOFpkO925HS nuYsN6QDAqpnXtH7UpOXGy kElhHrO8x3E0Dv8YIA50MG 80ER52sUIl w7D8fRL2K8OnRKAdksqxxr maoSK5TBNuQPLzfI72Qf6p mTbfMh9dVBUlJSI1AHVmmM SuE5KthZ9k MoPfHWRlTXQnB5TsqHZdDS fgZ918RAubIxB0YZLtljBr E7EqVIDhzQlhPcF1e9M4Ar 8HBs53IQ96 GJ49jYYrn2E1bYH1A4JoQY NyeipbdnefxJW3WJFpSBJh qD41Ce1lnUbaYw1xMGDuCV M4QKYmyNCq P0RkoT6mHgCjCZBhVDInT7 UqjOPuEFbkQ645LZqvJtS0 CVSjhdJvD1FpKIZmqOkfSe Y6l2O4Hl3B QRxaezo6I2NvEzkveLG+PC 62QFSpMX98qCWaaNOzy8uo tCp1BqOnQHZnLSO5aEqsJG meq3ElZQWm Y29 (more content not included)... Normal [facility] Urinalysis macro (dipstick) panel (U)on 07-10-2024 Bilirubin, UA Negative Negative - (70) +++ mg/dL [facility] Blood, UA Negative Negative - 50 Osvaldo/mcL [facility] Clarity, UA Clear [facility] Color, UA Yellow [facility] Glucose, UA Negative Negative - 1999(110) ++++ mg/dL [facility] Interpretation and review of laboratory results Abnormal [facility] Ketones, UA Negative Negative - 160(16) ++++ mg/dL [facility] Leukocytes, UA Positive Negative - 500+++ Edison/mcL [facility] Comment on above: small Nitrite, UA Negative Negative - Positive [facility] pH, UA 7 5 - 9 [facility] Protein, UA Negative Negative - 1999(20) ++++ mg/dL [facility] Spec Grav, UA 1.025 1 - 1.03 [facility] Urobilinogen, UA 1.0 0.2 - 12 mg/dL [facility] ED Clinical Summaryon 2023 ED Clinical Summary [facility] ? Urgent Care [address] [place] [address] Clinical Summary PERSON INFORMATION Name: BONNIE ASTUDILLO Age: 24 Years Sex: FEMALE : 2000 MRN: Acct#: Visit Reason: Vaginal discharge; VAGINAL ITCHING/DISCHARGE Arrival: 07/05/2024 10:15:34 Discharge: 07/05/2024 10:59:00 LOS: 000 00:44 Check In: 07/05/2024 10:15:34 Checkout: 07/05/2024 10:59:00 Address: [address] [place] [id number] PCP: Anthony Gomez MD PROVIDER INFORMATION Provider [...] Location: Home PATIENT EDUCATION INFORMATION Instructions: Vaginitis, [id number] Follow-Up: With: Address: When: Anthony Gomez [address] [place] [address] Business (1) Within 5 to 7 days With: Address: When: JACKIE ALONSO [address] [phone] Business (1) Within 1 to 2 days DIAGNOSIS: Vaginitis Patient Understands: Yes - Patient/family/caregiv er verbalizes understanding of instructions given Comment: Normal [facility] ED Patient Summaryon 024 ED Patient Summary [facility] ? Urgent Care [address] [place] [address] PATIENT DISCHARGE INSTRUCTIONS Patient Information Name: BONNIE ASTUDILLO Age: 24 Years Date of : 2000 [facility]: [id number] Reason For Visit: Vaginal discharge; VAGINAL ITCHING/DISCHARGE Arrival Time: 07/05/2024 10:15:34 Primary Care Physician: Anthony Gomez MD Attending Physician: Spenser Fang Comment: Patient Education With: Address: When: Anthony Gomez [address] [place] [id number] Business (1) Within 5 to 7 days With: Address: When: JACKIE ALONSO [address] [place] [address] Business (1) Within 1 to 2 days [...] and use condoms. General instructions ? Take nvxw-mbw-ersrfly and prescription medicines only as told by [...] Reviewed: 02/19/2021 Elsevier Patient Education ? 2023 [employer]. Medication Information: The exam and treatment you received today in the [facility] Emergency Department were for an urgent problem and are not intended as complete care. It is important for you to follow up with a doctor, nurse practitioner, or physician?s quality assurance assistant for ongoing care. If your symptoms become worse or you do not improve as expected and you are unable to reach your usual health care provider, you should return to the Emergency Department, we are available 24 hours a day. For those (more content not included)... Normal [facility] Urgent Care Note- Provideron 07-05-2024 [...] History Medical history: Resolved Ankle fracture, left ([id number]): Resolved. 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 Surgical history: Cholecystectomy (01486164).. Family history: Anxiety Father Sister Diabetes mellitus [...] with patient with NITISH Ballesteros at Dr. Alonso's office. She recommended Terconazole daily for 1 [...] doctor a (more content not included)... Normal [facility] Care Recordon 024 Urgent Care Record [facility] ? Urgent Care [address] [place] [address] PATIENT DISCHARGE INSTRUCTIONS Patient Information Name: BONNIE ASTUDILLO Age: 24 Years Date of : 2000 Reason For Visit: Vaginal discharge; VAGINAL ITCHING/DISCHARGE Arrival Time: 07/05/2024 10:15:34 Primary Care Physician: Anthony Gomez MD Attending Physician: Spenser Fang Comment: Visit Diagnosis: Diagnoses This Visit Vaginal discharge (217922720) Vaginitis (N76.0) If you received any narcotics, [...] documents With: Address: When: Anthony Gomez [address] [place] [address] Business (1) Within 5 to 7 days With: Address: When: JACKIE ALONSO [address] [phone] Business (1) Within 1 to 2 days Medication Information: The exam and treatment you received today in the [facility] Urgent Care were for an urgent problem and are not intended as complete care. It is important for you to follow up with a doctor, nurse practitioner, or physician?s quality assurance assistant for ongoing care. If your symptoms [...] so we can reach you if necessary. [facility] has provided you with a complete list of medications post discharge. Please inform your laborer/provider of your visit and for further instruction on these medications. Any specific questions regarding your chronic medications and dosages should be discussed with your primary care physician(s) and/or pharmacist. New Medications [facility] [id number], [address] [place], [place] [id number], [phone] terconazole topical (terconazole 0.4% vaginal cream) 1 [...] Eating food (more content not included)... Normal [facility] ALL CBC WITH AUTO DIFFon BASOPHILS ABSOLUTE AUTO 0 N [facility] Basophils/100 WBC (Bld) 0.3 % 0.2 - 2.0 % [facility] Eosinophils/100 WBC (Bld) 1.2 % 0.9 - 7.0 % [facility] Erythrocyte distribution width (RBC) [Ratio] 12.9 % 11.0 - 15.0 % [facility] Hematocrit (Bld) [Volume fraction] 40.3 % 36.0 - 48.0 % [facility] Hemoglobin (Bld) [Mass/Vol] 13.7 g/dL 12.0 - 16.0 g/dL [facility] IMMATURE GRANULOCYTES ABS AUTO 0.06 High [facility] Immature granulocytes/100 WBC (Bld) 0.5 % 0.0 - 0.5 % [facility] Interpretation and review of laboratory results Abnormal [facility] LYMPHOCYTES ABSOLUTE AUTO 2.5 [facility] Lymphocytes/100 WBC (Bld) 21.2 % 20.5 - 60.0 % [facility] MCH (RBC) [Entitic mass] 29 pg 26. 7 - 34.0 pg [facility] MCHC (RBC) [Mass/Vol] 34 g/dL 29.9 - 35.2 g/dL [facility] MCV (RBC) [Entitic vol] 85.2 fL 81.0 - 99.0 fL [facility] MONOCYTES ABSOLUTE AUTO 0.4 N [facility] Monocytes/100 WBC (Bld) 3.3 % 1.7 - 12.0 % [facility] NEUTROPHILS ABSOLUTE AUTO 8.7 High [facility] Neutrophils/100 WBC (Bld) 73.5 % 43.0 - 75.0 % [facility] Platelet mean volume (Bld) [Entitic vol] 9.5 fL 9.5 - 13.5 fL [facility] TBH EO # 0.1 [facility] TB PLT 378 [facility] RBC 4.73 [facility] WBC 11.8 High [facility] Outside Recordson 06-11-2024 Outside Records [id number]. [facility] 06-08-2024 Coding Summary HTMLBase 64 TshiygtnNOy6zTv+PGhlYW Q+HH2UJXBrR62onGTgdE7c C5DTDBcJLcgwHHXEVBwAWx QkdtLbVZ5siJTdPHUd IC8+EB3kEQXfXxkfxSCop8 V7jVJ8B08wze4wAUwmbJZ1 KHLuDjMilsjsv2smgPs1RM cuNmluOyBt FWNznQ76DSQ4cH42Ru44oU UijQXqr8auiYr8NuTrWQFf JVU5mDlhZRfxc0GrQJSmN0 9ysAAgc7F8 ABKjyGdznKRwOfSbfTZ6kH 9aOYqgsyxdv1xszkpoZqh7 vr59yISbd0M2zYP3R2Cqto L5RJSzaIIw PhqukYTJzH0msyace2yxik nfBoFpJAJrGJy8ZWc5VMTv mSjtLxHhIV74GTK7VQOewi QxS2QrMZDu bEpuDvB7x0L9Kx0XD6ZPKn fwU5JKUWUUVEuotBL+PC90 xq10I2YjRmgnGcb0QDNiSU I0iQA0qP8j GZQgXSgvb3N2rLR9U6Axot Lmrh5ad9ikYEWjZHwiH06k bBBzz7F1MGGmlBN0COBidP taJwQdwX38 Oyc+OWAdlNswm6AuOptwo9 wys5mweXs3PletKQHfjqVu jKxxSVO1c7XxNe5dCSQfvW M0jHO6nV0w AkAoWaS6BFhiV432JeSzeM ScDbofF28zU1DssEW+PHRy Vtz5LCVwdTqsWB3sB8BpMX RpbmctbGVm sHnfMO1nCJVcohljIHXrsO 7bHEKuU8z6WqRbFhT7YAss P7NeQTJcnuyeBw12vL9tCp IrHyT1WStx J8UfvxM9JRTksMRpSPizAL O0A54oh2T1VYOuRJGgGWA2 oZI6wG6twNrtyrielYEezH sgdmVydGlj DDvlQFvbD368FGWnzQvwAo NvZGluZyBEYXRlOiAgMTAv MDQvMjAyNDwvdGQ+PHRkIH M8tVypCXTi gHCrLKeiXh2cdWkueSbuRO 4yEDUnevwwVUXcfK6tJBWg zPWkyJguGA5zHDAujyoku3 13AzEtSAS2 WQSezKCuO8UfdB2gEeIsKH AsDQNnR0NrxHVcKKkzD861 NNahDlE9VTIbzpOdP3NfXF FsaWduOiB0 m9F0Ci7Mr6QzkhjcJ9CxpM YlGgHiLcgtKGs9K5EvJypa dHI+LS67BUMjOF96KXn3VI I6gFghUEcl TCLdS7QdsS2xEdWtADShZR RkOyc+PHRhYmxlIHdpZHRo SSpgGLOwUkFslVvmRE0pFl 9yZGVyLWNv wApntACzVvNdu0vzYQIaOP jrBK3gjWwtB7NkwHC5SFIq o8q4Rw75D22lF1EcnWJ+PG RnrHK0jBT6 iQ3oPbUvQeR6OXyeE263Xi PmkXOxCcdro3nks6jifVe1 OfJ2YPSsagObtAueDRW1b7 DiXx33O71p IHdpZHRoPSIxNSUiIHZhbG mnze3psJ5eRe6+PGNvbCB3 nRI9eV7xCkUiPaJ3AZfaA1 49InRvcCIv Prdbx3kvl8adiIj1OmEzRL YulsIwlAboLWH9i6PvEc34 I9TbrGwpx8EyWwk1lr75dC Bnl5M2jUU7 W4EfHHYmuzenkHEpfOsvVC 9bGOMczykiUSZzqB6sPVZz H6j8SdIdXuL2HDcdU2Nwnn X3WWCgvJQt UNZoiMEYgG6mapnhl5oqxh dqXjGsWAFaXXn2FGj4XUJi bOjpYbPhQFE7TlE6TDU9hN CblS1zfZmt qaowxQ6uNig+EDD0kVNqcV TQDL2uQaottWV+PHRkIHN0 bRbdEPpvRSWmmQ1cTZMsN3 e2QmJaWeZ2 LHltV1XobkR1EYBzjFVuKQ NtcERDpT7chskxx6antvyd JyUtQJNlPOg6DOc0BDZsbH duOiBsZWZ0 GqO0IYC0mKLfiK7qgKnqyp xphN1cYfd+QmlydGggRGF0 PAs5I1WgKtg8TXYlvEsxAF 0ncGFkZGlu Pk3maEvytBqdMI9yFOTnvj lmu470QxRml0dhMSHuzVQq DKpjRDQ3V76cz7X3GVSvJH OdCED7jXR2 bB2trPcfvkoyxLQfzShabq DmjTnvPKmtFDcxY537HIQt qVvoTwYdECh9A3VoKzg5BD UzzSqwHU3l qSKoIPgiFr4ydZhvnDzmBU 7tBKZtqbpfk630VfTdu2bs KQTuxJGgFLhoSUC9T68bd9 U8LSWkZSSf LHD0nNS5iE9brRjbsmacdJ VmdDsgdmVydGljYWwtYWxp C131BLAqfQxtUjBrbGy2J8 EkDry6LEGi wYzqHP1saKAfUHwwDo0xgC xtzKkxRT1eZKWqlhryb796 RnQny2tiLLBdxSWgIVimVH G1J14pm3F6 NJXcRBVgNQJ3wGX5rO4phT lnbjogbGVmdDsgdmVydGlj NWbsHTxyN776LUDpfAaeBo BhdGllbnQg XKsqLTg9I3XtCyaalOG+PC 76FGRnDK76cWKofJKal4vy hDc8HlSnZTUeOTQ5gQvtRJ wtq4LsEKJn Q37sgYVvz5Q0IGPtyXzmbH ZkOkCopJY1jW7yWQvzmgbg b1gpmtxgIeuun9jqdz11kZ 04R14gYUka ZHRoPSIzMCUiIHZhbGlnbj 5ikL9hIk2+TZAsdLV3gSB3 nD0xPJBqKgF8JSdvB459Pe RvcCIvPjxj t9djh7escMz6XdB3YIBpdp RteYouFJM6b0YzJi48O02m IHdpZHRoPSIyMCUiIHZhbG afjq3peM1v Ii8+YFPzcVU7mHP9oT9zTi QiCjK3NRaxU251UgPjrVTl OftiX19mM6UhgBO+PHRyPj n8KNUyvEby HC9blHMvPSnqYn3vHMJ4Bi BaNcHkWLfwU6LhRIIrygwv eipbsPB9YOAbFKYjwE17Az 9udDogMTBw oPRVzI2edfdfj2iakfdyBz ObYHFhVBx0SEw0XVLcxLsl GkLuSRA5TxL7AKQ4dFZvlI 1hbGlnbjog qO1sP6ChPVLfmotlLg65yC 6rNyDyWjD3VVwiOdv+Q1JB T8IBGgTmIDFAKOCJBkKcPC lDSEVMTEU8 S0RpGgb8STCbkNjqOF1qqB YvUToiIm2vrDctlWxxEH3q ITKauimbHMCniO2iLRApeT XmyFpqSY1k ZZKqqekil138WqHgKBQ2HJ KqzKEbW5AekA0dSfXrQFQo MABfD1GmtTGsTMknD880GV awUkF6YQGa zxQiW8WvRNFkuHbmLkL5k2 V6Il4vKv6aXA4pTRi7MT44 GA42lKUxh4M4lNV7C1WjPF Rpbmctcmln jOZ5MQDgDWVnpG14eVAfUQ qzHy2sw8X1x575FBSwNBKe fE80Cm8stLthBNEvbMNTaG 5rnmbnw8id qxmvArVmLYNgCVn4TIs4IW IerDcoFgHzDME7MtD8LST3 mXKtqU2bqYthmtfbgI0oXc c+MjYgWWVh yuH8A1ZrCfm3XGLojIbmIU 3kqHUxZDuvAt0sfGstsFno LS3aPEFjvpaiPNWhkG5iJY JvdHRvbTog FK6cWRWzmajyb347QdGfPG E5ESRrxCNbG8PmxX9rShMi CBBoARYoI0NrpYJiLTkeA2 81QQfsZvA9 LAXfbkImB3GdIADwzMsbZi O6a0L7Dv6MFP0VWHG9W8Dx Vnu6MADiwCrxIB0uvONxFC tqBm3fzNix eXpdZO6yCPDszxzsXTHfxW 9uLBUalFVmhFqtDI7pEYDg mgymz871RmKiCZF6VKPjeL NoU9FqsT8h OwRuUXPsCRQyX6TkhGUuLR ekZ367GBqeUiI0SMDtgoId X3XaYUTaaPdyNoI1a2S8Xu 3MyEEzG8Aa X4j2P4JtMgsgeFN+PC90YW HoYK72hHHodNBkv6qukMx6 TjQyRDRnHXJ5dTyqCWnkn7 IvWSIaR99p qVRbg3K8KIXtmRsfjEGxCh TiqTQ0uV0gHOpolktvy5ie gkvqYildx9cejz47yY55L2 9sIHdpZHRo GQPgOMFwQPLmoZxxoa5rhL 9wIi8+CEIgxMK1yJD9gE7g ElIlWyS9KLbeZ063DnNilI UfCykfz5cs n4oupNd9GsAbWXWxmeInzG rfFKK7h6MbWk71Y36tVDle ZHRoPSIyMCUiIHZhbGlnbj 4qeG8eWs1+ KW3pl2oned11xQ21uWJ+PH SmOPQ9lGlqGPzwMQFyvO7z WHdbCwG1RKSiAvZpnQ91pZ KaPXqdCm7s gPudvMhvFD8fCVIgpbzrd1 59FdDdo9jiIWLcwMOyTAhh HJG9L77zv2B3ECBmLEWjEC V6hJR5aX1f bGlnbjogbGVmdDsgdmVydG vpKGbgFYqrD804XWCnvVbn StHjvBNgR8tpffVSRF9yJr wvdGQ+PHRk PEK2zEbbIGqdNKOxqJ0mAN TlW8w7JyIaIdM8OUtzM8Ud lyO5GPIrwWEiLYRiaNLFfW 8uivpej2ok lmspEjMcELWzVBg7QXs7RL PykPnzWtRbXWE5IfN9HRC2 oKCyyN5kiEscvssxbA0pWu c+RklOOjwv dGQ+RVOmUHM2nGhiWScsZL FooH5xVNXeP3y1KdWoXyS8 KYhpU8GhryY7AXLvkXSpFU YfdUPHzW4y hyeua9kciokbAkJdBTGqMQ l4BXx0GGJirAbdTaLkQAP8 KgJ7RUT4qTDmmI4ntIkwsn advB8tJeu+ TVJOOjwvdGQ+NBWnFPI8lT ojCKapJPFkcB8uOQAuH1h2 PmTaEcI3RXqoK3TzanN1VZ JvbGQgMTBw zFMUdG9sbedas2ocygciSe CgIUBdBTh6TFu5ALQwgSms WsVwJPN1HaV8YZD3rRHtvE 1hbGlnbjog gM7hOwn+DHC3MEY9BQ59IR 60W0IcYqeibKKeiRR+PHRh YmxlIHdpZHRoPScxMDAlJy YgzOgeTY7i Ym9 (more content not included)... Normal [facility] HCG ( test) Ql (U)o n 06-07-2024 Interpretation and review of laboratory results Abnormal [facility] Preg Test, Ur Positive [facility] Urinalysis macro (dipstick) panel (U)on 06-07-2024 Bilirubin, UA Negative Negative - 4(70) +++ mg/dL [facility] Blood, UA Negative Negative - 50 Osvaldo/mcL [facility] Clarity, UA Clear [facility] Color, UA Yellow [facility] Glucose, UA Negative Negative - 1999(110) ++++ mg/dL [facility] Interpretation and review of laboratory results Abnormal [facility] Ketones, UA Negative Negative - 160(16) ++++ mg/dL [facility] Leukocytes, UA Trace Negative - 500+++ Edison/mcL [facility] Nitrite, UA Negative Negative - Positive [facility] pH, UA 7.5 5 - 9 [facility] Protein, UA Negative Negative - 1999(20) ++++ mg/dL [facility] Spec Grav, UA 1.020 1 - 1.03 [facility] Urobilinogen, UA 0.2 0.2 - 12 mg/dL [facility] Coding Summaryon 06-05-2024 Coding Summary HTMLBase 64 AgykbawhADg5zDk+PGhlYW Q+RU1SRPUaT49wpGVdtW1r S1JLQPvCZzmcIKRWFOzSEl GbtlPeBB9gdJAyKHKu IC8+JA5iLKYgZexxiDIyy4 Z8cQE4S51oon9jLBrcwCU1 PFEzErMzeddjt1yykUe1ZI cuNmluOyBt WPItsD74OGS2iG61Hz81zS SuqTDrc6pkdDl5FmGtTIAh CZK7hIiuLHdta8CbWKBaV7 8raVVjq0S3 NCMofTdfpUIsKsCuvNG7rL 5pGDifrpmgy9rtwgwfNse1 vx91sGLrg9L2nAF5K5Lcfx A6BPYdfYUz UfcxpWGVpE3snucat8pfrp taOcZwXPLoFBo7IHk8AFWp iZaoVlBvXT67ZRT6CQNrln EeG3OfPSIn qKkfUrD1t2Y2Wk4FN2FYCw hgP6GSITQHUXjheCR+PC90 ja04X7JnRgwpVwm8QJJbQJ K7pHX5lE3h HBLuBAhan7T9aVH3G1Yrym Xfag9ll9uuLDDiDFrsY66u vWXhq5M7NWHleMA8JOHixZ ycNyRdrN20 Oyc+JMIwzEfbo3MpNiqms2 elr4zhwBq9JssnIHPasuTu xJagXZH1b0XwZw1rMZBacV I5iCK2wJ7v BhYnCzQ4JGjdS903VjLouW GpWmrsG97rW1RntYO+PHRy Mhz3FENnkHonJS3dY5FqOM RpbmctbGVm wKecVJ4wWQFxkcxvJCEhsV 0hKNNtN4t0BvLnVbP8MIll N5GmFTKhlyjxTj29zK0cNt ZgAdT1LYbn H3JgxvD8HBWpeYFoXNvjGP A5T41jo3J1PFNgDTXhKQX3 zCL4bV3lpHcupzmhlRGknD sgdmVydGlj IEjzCNzqA844RUVftEbzJn NvZGluZyBEYXRlOiAgMTAv MDEvMjAyNDwvdGQ+PHRkIH O7zVljHGOr bZRzXZmxGf9baMdgyRjlMU 0yQHGbtfptATEydY2tKSTi lLCphDfvTL9xYDJfdhtdg1 30BxGrBVO0 FDArlUPyG4HfnU8pQtNoUL CfAJOkI6TocBRzGNhbI248 RBsyReB8CMTxrwPcN1TmUS FsaWduOiB0 e5O2Kc3Xq0HzajbbV2LvpA CpPkQlFffhKPg4F6OfGsib dHI+JK11AOYgCF95SHe7NY Y4rGjtXKpj BTTqA9AcuH3fRuFsAFFkYY RkOyc+PHRhYmxlIHdpZHRo PNxmVKJsUnNslWyxHE6lIb 9yZGVyLWNv qYuoxJRaIjBri3ffCFVfJY eeJW2umVrqG9WowJC3JCPm x2p3Ro66W84uK8EbsOQ+PG StoME0hYM9 aM5hLlEkCvG2MVcoU251Rj KbmZFyDxdew7tge3qqbUr4 OlE1TYPyntNbmWqtNHU7t5 ZySh24X90k IHdpZHRoPSIxNSUiIHZhbG cbbf5sfX5vZp8+PGNvbCB3 xJI8iT0xOoLfDiN2PHjdB9 49InRvcCIv Cvxfp3snu2inqRa4JpGjXS QksvOekJwnMMS7q9LiNk43 Z3BkxZvus6TqKio8zu75xT Yfe9M8kRM8 X7ZpGPAmyxkpkPGvwLkiKC 4rBFSurkasNIZswB7vHXJf H0a2VyRpFtZ7HHwxL8Bjnh Z8AQQcdMAl DRHzlRCMuU3lkrfnq4mdpx nwIcBnAJRiGZc4TGa9PCWs aFioRaCzWKX0NbN5USF0eP HelF9wjJle rsgarO3kOxc+VVV3vASkzC BOUL2bInjykKE+PHRkIHN0 nUohTLskCWIfnV7bLXKkO9 m1KwPlYgX1 ILmkP2DahhN5LGWmaMDjFZ ObtBIGkK4fexrfe7gtecea SrYgFQZdAYk2LSq2JWMijQ duOiBsZWZ0 AvM7EZA5gABuqU1lcLjzat ooeL6jFep+QmlydGggRGF0 VWp7K7TpLad7ZDWybHmoNA 0ncGFkZGlu Kk3bgQiasRrkSZ3xPYTids wcu063CoOlm1viDPFcvJTi HTlvJTG9L73xa1Y8VWIyNM PeLIY3wFZ1 xH1rqDjgirvaoFHwsToqjl SbyGwuVCehQAitW798HQMs fNquQqNmYZo5K7TiWrs0XU KtkJmkVN5e gQPmVEosNl8sjYlqlLgaHB 2nLHLsdtnaz925WdAju0qw EUMcrFCkCGlqLXV7E80iw3 P6TXCuKXRz HAW8vWZ7zF6ytRrmcqzqxU VmdDsgdmVydGljYWwtYWxp E476FRKoiNbsGsAogZo8J1 UtQcb5WSJx nPimFT8lhIIaPGqbBw5oqP vtaDeuCW5kNETvmtblv459 SiUvl6yuALIwuIUgSWafGN Q2P10gu2I2 NCBsPZRwVET6hXH7hZ7imV lnbjogbGVmdDsgdmVydGlj HJyrSOmpQ099SJLjaVejZx BhdGllbnQg CQfuPEn5E8DuCicdfGK+PC 28IUSuMC74mKQabAEhw2za lCs9LsXjNFFhFUG4lXmxNX yja5OtTFQg D64yzKBjd5J3PJKnhBhlxT XnFyAiqCM3lC8qRJlorhgh e7joqggbQhhsl5voac74kN 73L42gVOft ZHRoPSIzMCUiIHZhbGlnbj 3vtR6yVh2+GFVcvPL1fMW6 lT9gWDYuUgF4IEztS637Pq RvcCIvPjxj q8sup4yxeSi7CcR3HTNwsm TtfFfbTBW1r8JcCa84V62x IHdpZHRoPSIyMCUiIHZhbG mzyr7tlV3o Ii8+XFVmqXA7dGY4rJ1eBv BxHxM9MCnkG087EiSdkXDo WugvM84sM9OstIP+PHRyPj g4TUHzqInb UZ0ikUZhZNjrVj7kBBM6Zp IdXqKaUHtfH4QaHLHtketl gpbpqOY3YCJrEHJkfW61Ve 9udDogMTBw eXELnX5acbtca3sdmjkpWt SjNIJkINa0IDs4QCXbeIog PfWdADJ4YmK6WXO0uPGsbA 1hbGlnbjog bR7uX4WyYPFzjnatFh95zD 8rRdKeSzT6PTrsCdj+Q1JB Z5DYStEaKUUNXFTHHnFaJX lDSEVMTEU8 I7DcBti3SYTusQuiUB2yhZ SfKKdxRg3rxUkjdEllTC1e ACEdzhqmQPOvkY4yVAXaqM ZaaHlaDQ3m QQDlledbi703IjPmOGY6VR MvzKJlV8VnlW4pMaFfGUSt JEOlG4MrxLMePYdlE887RF ezUbN5GFQn vnFrS8GzJGZskSzpMyX0x0 H9Ow8rNw4gYP9pDRu8YG36 RK36kSGzy3F2xQH8F8VkYO Rpbmctcmln nHR3BNLvOHCdfC08cCNkSQ buTf1sf8R4q745LVBvCEJy xZ52Wo2rjRusPGMerINAsS 3zfehmi6zl ywciPvVfMMXaGVz3XZt3GK FbmRdjDwRfWGY5MyX4LBU3 xTPxmY7wuPfgnbqcbA6pBh c+MjYgWWVh irR3I3AeJda1AXLokOdeJB 5wvGJjTWqaAa1nmBkpbQri NF8fYQHupllvUPZfgV1lID JvdHRvbTog FX2mLHUnmkqfv690EoAcMM O1AKWxfTTqJ9QvjS3pXfCx NIJtNHPtB7TttKXnONvoW7 34LDtxIaE0 JKDecjGlE4ThAMYbpGnzBa E7e6H9Yl3KPQ9ASCY9T3Mr Asr6GRGpnJmhDB2pzMXwCB euAd0aiYvh nFiuHT7hOWHvkrawGLLnsX 3cVVNhxJFmaFazSB7fHMBp xhkpp874UgAvDXB0BLPyvK XsD4UkcN3g YnVuKXQmTRFdA9GqwTTaCZ gqB100UWtuVpJ0EORzzmSm U0ZhSQOqmNuhGgX3v7W4Kh 5PUDwvdGQ+ SA09hq04H2TwTmjhTpd7YC IkUTZ7fZM6hU5jESQtZZsj x0B8mTO3Y6XbevSofi9dp7 xsYXBzZTog X67xlZWdx1Z7VXEsfYI1XU KqjAkaZyQtiJ93Eem+PGNv mPpfj5QcIrans8skg8pnwP b1YcUqFFAm aiIxfNdjCIM0y1VkPw92U3 9sIHdpZHRoPSIzMCUiIHZh tPhlvz8tmJ7bYv5+PGNvbC P4zQF3nN2e IiCuQkO8DZisI258PtChxI PuOxvkj3tcz1udqGx1XcCp TCVzwgUgiMlfBXI1b4WsLp 92O3GqvLzr z8KvVwq0gi27tLAst6T0sV I3N8EaODEcqmqgzREdfRsw OS1zGXJtkfzkDECenG7nMG JoJ5s7NbIc CnJ1DKzxB8MgswJ7UBWfaZ PgEWPfsEFCaX6qomrld7am rhgcPqTjRGHaVMe8XJq7JT FsaWduOiBs ZLG3AgM9VXJ6sUBghT0ulG qvqkkazT6zUuf+KCn6i6dk uCNhNO4neQC4KU18UP13xA Kmf0I7dIF7 G4VoRLNzouphrtwysJZ5WB ZuZROonK31Hu6fcVjvKt1x YZWhZQP2LYUacLCmZ9EcvV 9yOiAjMDAw RFMfB8TkcBUzBNdfX221LA jaVmE7RFZumuQvY5PeJUOz cTrsXbT1t5J8Ur4AJK01TK 88KR13iXLe k0X7tSL5I2GyBPCgolemjf dkvAY9OROyGYRwvY79Pc9d oGuqHg3pNMPuJQN6YGGfgC VvJ7JmuE0h QdMiJNRkPJKpR6BanSFeEE wbS448PZyqKhK0ZBVyxiUk G8EnEPFfdQqkDaN0w0D6Xg 0JFk59MC99 BF17zYCgt3C1hSA7O1MrXB QxdqbvipyzbAH6JXDeAYBx iD67Dr8veQhcLq9bUCQgUB J3ANWlgCXa P4MfvX4tDyDuZGUgVMPkU6 DatKCuSTsgH693CSepOhW2 KSVfwjEgJ7KpKGGjzNrzVo P5h4D6Vz2K PDsjplw1U6GbEcmdqLC+PC 87IJCdHG53uXWlxAYfw5ac fHo8RyXoRADeHQZ1sEhdMX zbq9CtGCCj Y29 (more content not included)... Normal [facility] Office/Clinic Noteon 024 Office/Clinic Note [...] 113.040 kg Body Mass Index 39.11 kg/m2 [place] Body Weight Calculated 61.437 kg BSA Measured 2.31 m2 General: Alert and oriented, No acute distress. Musculoskeletal: Positive point tenderness over the left gluteal region as compared to the right. Positive straight leg raise. Positive piriformis muscle sign with external rotation of the hip with adduction towards the opposite shoulder.. Impression and Plan Diagnosis Sciatica of left side (DSS52-RC M54.32). Plan: Discussed with patient stretches she can do to help with her sciatica. They were demonstrated in the office. Will hold off on any steroids.. Orders Orders Evaluation and Management: [id number] Office visit - established pt, Level 3 (Order): 06/01/2024 13:28 EDT, Qty: 1, Sciatica of left side. [Electronically Signed on: 06/01/2024 13:56 EDT] Anthony Gomez MD [Verified on: 06/01/2024 13:56 EDT] Anthony Gomez MD Normal [facility] .Auto Diff 1on 05-28-2024 Auto [place] % 5 % Normal -12 [facility] Comment on above: Performed By: #### 1 [id number], 7397063, 6618917, [id number] #### [facility] (DEFAULT) [address] [place] [address] Baso Abs# 0.1 x10 Normal 0.0-0.2 [facility] Comment on above: Performed By: #### 1 9111526, 9445384, 4192845, [id number] #### [facility] (DEFAULT) [address] [place] [address] Basophils/100 WBC (Bld) 0.6 % Normal 0.2-2.0 [facility] Comment on above: Performed By: #### 1 3130262, 6367889, 8790787, [id number] #### [facility] (DEFAULT) [address] [place] [address] Eos Abs# 0.3 x10 Normal 0.0-0.4 [facility] Comment on above: Performed By: #### 1 5927767, 0866924, 0341753, [id number] #### [facility] (DEFAULT) [address] [place] [address] Eosinophils/100 WBC (Bld) 2.5 % Normal 0.9-4.0 [facility] Comment on above: Performed By: #### 1 5119261, 5335202, 1603723, [id number] #### [facility] (DEFAULT) [address] [place] [address] Lymph Abs# 3.6 x10 High 1.3-2.9 [facility] Comment on above: Performed By: #### 1 3872824, 3719319, 2709797, [id number] #### [facility] (DEFAULT) [address] [place] [address] Lymphocytes/100 WBC (Bld) 27 % Normal 14-48 [facility] Comment on above: Performed By: #### 1 1655899, 8005119, 4378748, [id number] #### [facility] (DEFAULT) [address] [place] [address] [place] Abs# 0.7 x10 Normal 0.0-0.8 [facility] Comment on above: Performed By: #### 1 5182815, 8438734, 2343623, [id number] #### [facility] (DEFAULT) [address] [place] [address] Neut Abs# 8.4 x10 Normal 1.5-9.2 [facility] Comment on above: Performed By: #### 1 3985212, 3025593, 3415835, [id number] #### [facility] (DEFAULT) [address] [place] [address] Neutrophils/100 WBC (Bld) 64 % Normal 44-88 [facility] Comment on above: Performed By: #### 1 1237368, 3874337, 8474245, [id number] #### [facility] (DEFAULT) [address] [place] [address] CBC w/ Auto Diffon 4 Man Diff? Auto Invalid Interpretation Code [facility] Comment on above: Performed By: #### 1 4833934, 5033097, 1304099, [id number] #### [facility] (DEFAULT) [address] [place] [address] Erythrocyte distribution width (RBC) [Ratio] 13.6 % Normal 11.5-15.0 [facility] Comment on above: Performed By: #### 1 7249068, 5912568, 1746530, [id number] #### [facility] (DEFAULT) [address] [place] [address] Hematocrit (Bld) [Volume fraction] 42.0 % High 33.7-40.4 [facility] Comment on above: Performed By: #### 1 7608858, 4752188, 7267444, [id number] #### [facility] (DEFAULT) [address] [place] [address]7933 Hemoglobin (Bld) [Mass/Vol] 13.8 g/dL Normal 11.3-15.9 [facility] Comment on above: Performed By: #### 1 5439334, 8416823, 0802789, [id number] #### [facility] (DEFAULT) [address] [place] [address] 79918 MCH (RBC) [Entitic mass] 28 pg Normal 24-34 [facility] Comment on above: Performed By: #### 1 5665958, 3489506, 7906559, [id number] #### [facility] (DEFAULT) [address] [place] [address] MCHC (RBC) [Mass/Vol] 33 g/dL Normal 26-37 [facility] Comment on above: Performed By: #### 1 3573241, 0803457, 9533874, [id number] #### [facility] (DEFAULT) [address] [place] [address] 53503 MCV (RBC) [Entitic vol] 86 fL Normal 81-100 [facility] Comment on above: Performed By: #### 1 0888029, 4830994, 8518331, [id number] #### [facility] (DEFAULT) [address] [place] [address] 41837 Platelet 352 x10 Normal 138-427 [facility] Comment on above: Performed By: #### 1 8998036, 8468471, 5857805, [id number] #### [facility] (DEFAULT) [address] [place] [address] 55351 Platelet mean volume (Bld) [Entitic vol] 7.8 fL Normal 6.3-10.2 [facility] Comment on above: Performed By: #### 1 8292125, 0635530, 6042016, [id number] #### [facility] (DEFAULT) [address] [place] [address] 73490 RBC 4.90 x10 Normal 3.70-5.30 [facility] Comment on above: Performed By: #### 1 6372769, 1847682, 9015591, [id number] #### [facility] (DEFAULT) [address] [place] [address] WBC 13.1 x10 High 3.5-10.5 [facility] Comment on above: Performed By: #### 1 3921673, 8843004, 7477194, [id number] #### [facility] (DEFAULT) [address] [place] [address] CMP Standardon 05-28-2024 eGFR Non AA >60 Invalid Interpretation Code [facility] Comment on above: Performed By: #### 1 7880551, 5824824, 0162857, [id number] ####[facility] (DEFAULT)[address] [place] [address] eGFR AA >60 Invalid Interpretation Code [facility] Comment on above: Performed By: #### 1 8165921, 5636085, 4314301, [id number] ####[facility] (DEFAULT)[address] [place] [address] Albumin [Mass/Vol] 4.4 g/dL Normal 3.5-5.0 [facility] Comment on above: Performed By: #### 1 7586365, 0885204, 2391578, [id number] ####[facility] (DEFAULT)[address] [place] [address] Albumin/Globulin [Mass ratio] 1.2 {ratio} Low 1.4-2.6 [facility] Comment on above: Performed By: #### 1 7407109, 9845808, 7378109, [id number] ####[facility] (DEFAULT)[address] [place] [address] 20025 Alk Phos 46 IU/L Normal 32-91 [facility] Comment on above: Performed By: #### 1 4390285, 6968553, 9986260, [id number] ####[facility] (DEFAULT)[address] [place] [address] 39223 ALT [Catalytic activity/Vol] 29.0 U/L Normal 14.0-54.0 [facility] Comment on above: Performed By: #### 1 1261479, 9510779, 2933637, [id number] ####[facility] (DEFAULT)[address] [place] [address] 36828 Anion gap [Moles/Vol] 11.4 mmol/L Normal 5.0-19.0 [facility] Comment on above: Performed By: #### 1 9382475, 6553214, 3494108, [id number] ####[facility] (DEFAULT)[address] [place] [address] 14588 AST [Catalytic activity/Vol] 30 U/L Normal 15-41 [facility] Comment on above: Performed By: #### 1 7533109, 5604594, 4769789, [id number] ####[facility] (DEFAULT)[address] [place] [address] 76931 Bili Total 0.4 mg/dL Normal 0.3-1.2 [facility] Comment on above: Performed By: #### 1 0202689, 8061114, 4067101, [id number] ####[facility] (DEFAULT)[address] [place] [address] 62967 Calcium [Mass/Vol] 8.9 mg/dL Normal 8.9-10.3 [facility] Comment on above: Performed By: #### 1 0831798, 9352963, 3538700, 1341214525 ####[facility] (DEFAULT)[address] [place] [address] 29375 Chloride [Moles/Vol] 104 mmol/L Normal 101-111 [facility] Comment on above: Performed By: #### 1 1603112, 8105000, 7350584, 8504071219 ####[facility] (DEFAULT)[address] [place] [address] 40531 CO2 [Moles/Vol] 20 mmol/L Low 21-32 [facility] Comment on above: Performed By: #### 1 5332080, 0437025, 6662814, [id number] ####[facility] (DEFAULT)[address] [place] [address] 60554 Creatinine [Mass/Vol] 0.66 mg/dL Normal 0.60-1.30 [facility] Comment on above: Performed By: #### 1 2796874, 1941444, 8402344, [id number] ####[facility] (DEFAULT)[address] [place] [address] 87791 Globulin (S) [Mass/Vol] 3.5 g/dL Normal 1.5-4.3 [facility] Comment on above: Performed By: #### 1 5730186, 3286396, 9048229, [id number] ####[facility] (DEFAULT)[address] [place] [address] 80886 Glucose [Mass/Vol] 100.0 mg/dL Normal 74.0-118.0 [facility] Comment on above: Performed By: #### 1 0787346, 0044411, 3123172, [id number] ####[facility] (DEFAULT)[address] [place] [address] 30100 Osmolality 263 mOsm/L Invalid Interpretation Code [facility] Comment on above: Performed By: #### 1 6657424, 9690403, 4761476, [id number] ####[facility] (DEFAULT)[address] [place] [address] 11064 Potassium [Moles/Vol] 3.4 mmol/L Low 3.6-5.1 [facility] Comment on above: Performed By: #### 1 2537785, 3114315, 2666311, [id number] ####[facility] (DEFAULT)[address] [place] [address] 69770 Protein [Mass/Vol] 7.9 g/dL Normal 6.5-8.1 [facility] Comment on above: Performed By: #### 1 8167687, 6538765, 9403026, [id number] ####[facility] (DEFAULT)[address] [place] [address] 90147 Sodium [Moles/Vol] 132.0 mmol/L Low 136.0-144.0 [facility] Comment on above: Performed By: #### 1 9581951, 6874790, 2122363, [id number] ####[facility] (DEFAULT)[address] [place] [address] 23332 Urea nitrogen [Mass/Vol] 9 mg/dL Normal 8-26 [facility] Comment on above: Performed By: #### 1 3560551, 4718204, 5784860, [id number] ####[facility] (DEFAULT)[address] [place] [address] 91744 Urea nitrogen/Creatinine [Mass ratio] 13.6 mg/mg Normal 4.6-16.2 [facility] Comment on above: Performed By: #### 1 6397784, 0643326, 3729170, [id number] ####[facility] (DEFAULT)[address] [place] [address] 13088 ED Clinical Summaryon 2023 ED Clinical Summary [facility] Emergency Department [address] [place] [address] ED Clinical Summary PERSON INFORMATION Name: BONNIE ASTUDILLO Age: 24 Years Sex: FEMALE : 2000 MRN: Acct#: Visit Reason: Back pain; Abdominal pain - ; ABD PAIN LT SIDE, LT LEG NUMB Arrival: 05/28/2024 14:14:57 Discharge: 05/28/2024 17:55:00 LOS: 000 03:41 Check In: 05/28/2024 14:14:57 Checkout:05/28/2024 17:55:00 Address: [address] [place] [address] PCP: Anthony Gomez MD PROVIDER INFORMATION Provider Role Assigned Unassigned Evonne Cheung PA-C ED PA 05/28/2024 14:19:07 Daisy Freire [employer] Nurse 05/28/2024 14:26:14 VITALS INFORMATION Vital Sign [...] Home PATIENT EDUCATION INFORMATION Instructions: Muscle Strain, Kvtc-gr-Qpwt; Sciatica, Uqfz-hx-Midy; Back Exercises, Hred-vo-Gqxn Follow-Up: With: Address: When: Anthony Gomez MD [address] [place] [address] Within 3 to 5 days DIAGNOSIS: 1:6 weeks gestation of ; 2:Low back pain with left-sided sciatica; 3:Pain in the side Patient Understands: Yes - Patient/family/caregiv er verbalizes understanding of instructions given Comment: [facility] ED Clinical Summary [facility] ? Urgent Care [address] [place] [address] Clinical Summary PERSON INFORMATION Name: BONNIE ASTUDILLO Age: 24 Years Sex: FEMALE : 2000 MRN: Acct#: Visit Reason: UC - Abdominal Pain; LT SIDE PAIN, LEG PAIN Arrival: 05/28/2024 14:07:02 Discharge: 05/28/2024 14:10:00 LOS: 000 00:03 Check In: 05/28/2024 14:07:02 Checkout: 05/28/2024 14:10:00 Address: [address] [place] [address] PCP: Anthony Gomez MD PROVIDER INFORMATION Provider [...] left flank pain; Currently Patient Understands: Comment: [facility] ED Note-Nursingon 05-28-2024 ED Note-Nursing Beer Cooler at bedside while US was performed. pt tolerated well [facility] ED Note-Nursing Pt ambulatory back t o [...] is A/Ox4 call light within reach Normal [facility] ED Patient Summaryon 024 ED Patient Summary [facility] - Emergency Department [address] [place] [address] PATIENT DISCHARGE INSTRUCTIONS Patient Information Name: BONNIE ASTUDILLO Age: 24 Years Date of : 2000 Reason For Visit: Back pain; Abdominal pain - ; ABD PAIN LT SIDE, LT LEG NUMB Arrival Time: 05/28/2024 14:14:57 Primary Care Physician: Anthony Gomez MD Attending Physician: Pam Gao MD Comment: Visit Diagnosis: Diagnoses This Visit 6 weeks gestation of (Z3A.01) Abdominal pain - ([id number]) Back pain ([id number]) Low back pain with left-sided sciatica (M54.42) Pain in the side (R10.9) The Pharmacy at [facility] is open Tuesday through Tuesday from [...] alcohol and/or drug addiction problems; contact the [facility] 28/03 Crisis Hotline -Text 5TWPZ de 718670. If you received any narcotics, sedation, or [...] documents With: Address: When: Anthony Gomez MD [address] [place] [address] Within 3 to 5 days Medication Information: The exam and treatment you received today in the [facility] Emergency Department were for an urgent problem and are not intended as complete care. It is important for you to follow up with a doctor, nurse practitioner, or physician?s quality assurance assistant for ongoing care. If your symptoms [...] so we can reach you if necessary. [facility] Emergency Department has provided you with a complete list of medications post discharge. Please inform your laborer/provider of your visit and for further instruction [...] can happen (more content not included)... Normal [facility] ED Patient Summary [facility] ? Urgent Care [address] [place] [address] PATIENT DISCHARGE INSTRUCTIONS Patient Information Name: BONNIE ASTUDILLO Age: 24 Years Date of : 2000 Reason For Visit: UC - Abdominal Pain; LT SIDE PAIN, LEG PAIN Arrival Time: 05/28/2024 14:07:02 Primary Care Physician: Anthony Gomez MD Attending Physician: Spenser Fang Comment: Patient Education Medication Information: The exam and treatment you received today in the [facility] Emergency Department were for an urgent problem and are not intended as complete care. It is important for you to follow up with a doctor, nurse practitioner, or physician?s quality assurance assistant for ongoing care. If your symptoms [...] so we can reach you if necessary. [facility] Emergency Department has provided you with a complete list of medications post discharge. Please inform your laborer/provider of your visit and for further instruction [...] (R10.9) Currently (Z34.90) UC - Abdominal Pain ([id number]) If you received any narcotics, sedation, or [...] for Disease Control and Prevention May 2014 [facility] Lactic Acidon 05-28-2024 Lactic Acid 9.1 mg/dL Normal 4.5-19.8 [facility] Comment on above: Performed By: #### 2 [id number] ####[facility] (DEFAULT)[address] [place] [address] 50965 UA Kovjk6sd 05-28-2024 UA Bacteria Trace [facility] Comment on above: Order Comment: Urina lysis Microscopic order added on by [employer] Rules system. Performed By: #### 5 [id number], [id number] #### [facility] (DEFAULT) [address] [place] [address] 46173 UA RBC None Seen [facility] Comment on above: Order Comment: Urina lysis Microscopic order added on by [employer] system. Performed By: #### 5 [id number], [id number] #### [facility] (DEFAULT) [address] [place] [address] 68161 UA Squam Epi Moderate [facility] Comment on above: Order Comment: Urina lysis Microscopic order added on by [employer] system. Performed By: #### 5 5570176, [id number] #### [facility] (DEFAULT) [address] [place] [address] 81233 UA WBC 0-2 [facility] Comment on above: Order Comment: Urina lysis Microscopic order added on by [employer] system. Performed By: #### 5 [id number], [id number] #### [facility] (DEFAULT) [address] [place] [address] 60342 UA w Culture if Ind Standard on 05-28-2024 Breakpoint UA [facility] Comment on above: Performed By: #### 5 [id number], [id number] #### [facility] (DEFAULT) [address] [place] [address] 35490 Color (U) Straw [facility] Comment on above: Performed By: #### 5 7731317, [id number] #### [facility] (DEFAULT) [address] [place] [address] Culture? Not Indicated Invalid Interpretation Code [facility] Comment on above: Result Comment: Resu lt created by rule GL_MAGR_ADD_UA_CULT Result created by rule GL_MAGR_ADD_UA_CULT Performed By: #### 5 [id number], [id number] #### [facility] (DEFAULT) [address] [place] [address] Glucose (U) [Mass/Vol] Negative [facility] Comment on above: Performed By: #### 5 [id number], [id number] #### [facility] (DEFAULT) [address] [place] [address] Ketones Ql (U) Negative [facility] Comment on above: Performed By: #### 5 0949763, [id number] #### [facility] (DEFAULT) [address] [place] [address] Micro? Indicated Invalid Interpretation Code [facility] Comment on above: Result Comment: Resu lt created by rule GL_MAGR_ADD_UA_MICRO Performed By: #### 5 [id number], [id number] #### [facility] (DEFAULT) [address] [place] [address] UA Bilirubin Negative Normal [facility] Comment on above: Performed By: #### 5 4328533, [id number] #### [facility] (DEFAULT) [address] [place] [address] UA Blood Negative Normal [facility] Comment on above: Performed By: #### 5 2575499, [id number] #### [facility] (DEFAULT) [address] [place] [address] UA Clarity SL CLOUDY Abnormal CLEAR [facility] Comment on above: Performed By: #### 5 0226668, [id number] #### [facility] (DEFAULT) [address] [place] [address] 86624 UA Leuk Est SMALL Abnormal NEGATIVE [facility] Comment on above: Performed By: #### 5 9383015, [id number] #### [facility] (DEFAULT) [address] [place] [address] 47582 UA Nitrite Negative Normal NEGATIVE [facility] Comment on above: Performed By: #### 5 2034963, [id number] #### [facility] (DEFAULT) [address] [place] [address] 26699 UA pH 6.0 Normal 5-8 [facility] Comment on above: Performed By: #### 5 8875264, [id number] #### [facility] (DEFAULT) [address] [place] [address] 74842 UA Protein Negative Normal NEGATIVE [facility] Comment on above: Performed By: #### 5 8098264, [id number] #### [facility] (DEFAULT) [address] [place] [address] 22451 UA Spec Grav 1.010 Normal 1.001-1.035 [facility] Comment on above: Performed By: #### 5 3239176, [id number] #### [facility] (DEFAULT) [address] [place] [address] 48612 UA Urobilinogen 0.2 mg/dL Normal 0.2-1.0 [facility] Comment on above: Performed By: #### 5 5598950, [id number] #### [facility] (DEFAULT) [address] [place] [address] 86419 Urine Source Clean Catch Normal [facility] Comment on above: Performed By: #### 5 9488502, [id number] #### [facility] (DEFAULT) [address] [place] [address] 36027 US 1st Trimesteron 05-28-2024 US 1st Trimester [...] Anthony Yeh MD 05/28/24 7:34 pm Technologist: [facility] US Transvaginalon 05-28-2024 US Transvaginal EXAM: [...] Anthony Yeh MD 05/28/24 7:34 pm Technologist: [facility] Urgent Care Note- Provideron 05-28-2024 Urgent [...] History Medical history: Resolved Ankle fracture, left ([id number]): Resolved. Ankle impingement syndrome ([id number]): Resolved.. Surgical history: Cholecystectomy (76193469).. Family history: Anxiety Father Sister Diabetes mellitus [...] Diagnosis Abdominal pain, acute, left upper quadrant ([id number] R10.12, Discharge, Medical) Acute left flank pain (FOE71-NR R10.9, Discharge, Medical) Currently (YFV82-KL Z34.90, Discharge, Medical) Plan Condition: Stable, Guarded. [...] on: 05/28/2024 14:16 EDT] [facility] Fang Normal [facility] hCG Quantitativeon hCG Quantitative 52275.0 mIU/mL High 0.0-0.6 [facility] Comment on above: Result Comment: Post -Menopausal Reference Range is: 0.1-11.6 mIU/mL Performed By: #### 1 [id number] ####[facility] (DEFAULT)[address] [place] [address] Progress Noteson 04-24-2024 [employer] Authentication Interface Message Text Attestation signed by [...] OMFS PATIENT VISIT CHIEF COMPLAINT: Toothache and [place] Teeth HISTORY OF PRESENT ILLNESS: 24-year-old female [...] canal DIAGNOSIS: Abnormal tooth eruption (Primary Diagnosis) [[id number]] Impacted third molar tooth [[id number]] Caries, Impacted wisdom teeth, and Retained dental root ASSESSMENT: #1 Caries #16 Caries #17 and #32, Partial bony Impaction with pericoronitis PLAN: Surgical extractions #'s 17, 32, Extractions #'s 1, 16, and with local anesthesia Pavan Lee DMD, MD Normal [facility] [employer] Tech Authentication Interface Message Text Normal [facility] Coding Summaryon 03-28-2024 Coding Summary HTMLBase 64 LkmacburHLf4sRe+PGhlYW Q+NM7WMPHyD40hpBGlzE3c I4CGACeLEdnuCYLLTLuRFz SknmJgTA0cuZVcFPQa IC8+RD9vGOSnDzrfkGCop7 D6oXG8P14tlk7aHGiixAZ8 TJJcIxWukfchl5xzhNw9KN cuNmluOyBt TFQadG46UEY7oM08Xz36kN BmmLMss2ausCp0EjIpWGUk WSA6aWmpMHcbj2UaLEJbT7 6axPCzl0W9 NQFoqVldmUCsJdOyeZE2yX 6hIYftflowv8dgdjukXhx8 qy22jNNkq7Q9fOO1N2Czwj H4KESpuTAq OghqcKPMtG2owhiid2zekq maIiIbBGSgGUx8UKv8OUUd sGcwRyLuAF02ATE7XYArur LyE2UjZFOa dSsrBqI6f6J9Zv0SB8NCSl ctI6WENFXUBVltaWA+PC90 qc02C3MuLcnrVue0DNJdTK E1eVU2eW5t ITKrHHrgf3G6jZT4E6Mwow Mpwb3mx8oqVMZrCInqM53g lOOcv3U6PJIcdFQ5VSMzoQ vvPnEwlM12 Oyc+UDHthGqtw4SiLbhif3 iqw2wtrIu3SyeaFWFrfcEy sPvbXTH7v2NeRt2rHWSzyM T0oMV2tA5q MfAnQeP1DZqsM178KeGbpS GfHlhiN16xP4AkmRK+PHRy Mxi2MGTswSsaTZ9iT7ZwPN RpbmctbGVm xHqcSI5lQJVpmylxBOGdgZ 5yYFShF1j3XxOgCiY3PSqv T8PcWMKulrdeQe41yU3kGq UpAwQ6TGls R4XaojJ4QPRqwDAtQRnlEY S9D03tt9F6ODJjDIGjXWF4 iNQ9mE2buEuhwejcmISxbW sgdmVydGlj LOyxPNynX502XRNaqTxyUg NvZGluZyBEYXRlOiAgMDcv MjQvMjAyNDwvdGQ+PHRkIH G6mFosYTIu mHVlGCcvLl7cuJuqsZqyCB 7cGURameovOVVgoC8pCRYr vIFvgEnwUJ3cVTGrbgdab1 07XvOxGAW9 GXAclBZoY2HyfL0hHxDrMJ YaISMjU8DwqMRvKUwwA292 IHhsHbA6PWIxxyMhL5OyFV FsaWduOiB0 z0L1Fx0Ue3YjlnczM1VhpC RfAkDpQelzMBu8S0VqVyan dHI+NN87SGCqSJ13HYe0CK G6lQjyKIis YCXsM3OssV9uNpAoVCYqXK RkOyc+PHRhYmxlIHdpZHRo JGwfYZNeWaSpvQkxFB4uRo 9yZGVyLWNv xSoeqPRxEkTib2ruJATfUJ bqOU5nbDfcR2MhfSZ7RCKq l7c2Jo54Y23xJ3OftOG+PG OxvPU5fTD6 sT8uAiOjOvD5OKojL202Va ReiQNvVktzz9hey1mbkAt2 CfE1RTUgreHduZbvHJX1f9 MtGe33Z87g IHdpZHRoPSIxNSUiIHZhbG knls0wnI3mPp7+PGNvbCB3 xQY5zX5fGuXnFfQ6QAajX9 49InRvcCIv Fvdcy7bkj6jzaIz6GoJrYQ ZkkkEdqGshMIZ8p6EkWa21 O6EcgAgme4UfFkl4fv65rV Hdc9O9lUI1 M7UpHVXsjlypbUOksKmaPQ 9hLSNdpkjcPDUnxE3iFILb H6x9QiAqQaD6NBtoH0Slmp U7GENdqASf SGSxoIBQrQ1yxvpoc6lzzg qlNvSwDDTrIBj0QKn8FYCm lOlpYyDzMYC9DbN3NAV8zD VtwK7yiSel ehxyeQ8yZxm+PLR8vQOnrY NZUY1uPqitjWP+PHRkIHN0 oSelMFlzGXFheO4fEHDvV2 i1ZqTbRnQ7 VGorB9QznjZ1CVGxvCMzYZ OvzINUpU9cncnsw5gkiqfs FrIzFPToVNi6XXf5DNAztS duOiBsZWZ0 ApI1KWP1cKNjkW0qkIxwap cbtY9tWxz+QmlydGggRGF0 HGx8G0XiPet6ETUyrUomUY 0ncGFkZGlu Ki4ihYkyiFgoEY2cXHHufj twa724RcRai7dwESIhwMCn ARxzHTO6N08xt1W6QDXxWF SdAAT3tKO9 uK1loYihysdhgPGzoWhwll NvsPijFRhiTPtoB520HGKz gVndZqJvTJf7V6WoFxa1QZ BdgDlcTS4g sWNrWXbwGw2kkJnshRcnMM 7nHXLvuknwz283VmFqd4qg ARQhqNIyYDhtIEZ8X26uk6 O5DKOjACDz VUO4kZD4uC7yxNtmyerocY VmdDsgdmVydGljYWwtYWxp V236SXMzsYmsZgBboXp2F5 MjZhy1TPFi fXhcZD2icFAvQTpiUa6ruN kdmCsdNW3qRENmyoqhl385 VuQce1fkZJDknIMhIMdmRY R9V35ui1N6 HTJfGLMmFXG8iPT8iH8ihA lnbjogbGVmdDsgdmVydGlj SDucNElaN824CHIqaWucRk BhdGllbnQg NAdvBSp1Y6PuClszcWJ+PC 26DSZiRI49fBXtxIBkf0uz tCe9QlAuUFTbNOI7zZipUA hlf2ZfPWEd K74uhYAfm7P3WUEmmLqxiU EzLkBypCX4jF6pHZhszaqu g2gkpqhtGkfjo5dsko87vF 25S56iNNwi ZHRoPSIzMCUiIHZhbGlnbj 8toH5iUx3+KOEroMU2wVI4 yD5aDCOrXjI7IOdgY288Ue RvcCIvPjxj z7ite6gepRa6ScO3TDRdaw AzhLjkTTU6t1FgEl67B21z IHdpZHRoPSIyMCUiIHZhbG vbkg4neS9j Ii8+QLEpeVS1yDO7gS2wKk PhUmJ8TSrfU825MyIlkHMx RabfW46lT8HtcPQ+PHRyPj i2AYVezFgx YE1gnHTbMIivZz7aNDT0Jw WuDwRnKYmoL1JvKGLatvjs xwhdvXB4WRBhBEGpoJ55Ut 9udDogMTBw rSITlO9ldzsbv9razgmiEz XkHUQzIHy7VEc3EDFgvDwa PdCrFTA4GbU1GFB4qKIviQ 1hbGlnbjog jD7fL9YyOWVlghhlFz99bB 7rGkXvZmM4ZLmoMhv+Q1JB M3ANLsFmLMTNLIWMSqXySO lDSEVMTEU8 G8UtTlx7QZZxuYybXJ2ytI HuNRimFu6bjGqeyOyoBS9r RTFlrusuAJCjxV1cZHCphN LrpQykVX0p AEKfxussy442AcAoMCI0HQ FiqGLoU0SdcG6eZfSnNIMj NFSuS5HxdCYzEMaxD905JP ewRlY7JRCm xvYqD0AeAXQmiGbhYoH0l8 M0Ol9kTb3aGJ1wGDg5YS45 EV51vQXic1Z2jXA7F0XlMA Rpbmctcmln lCV6MYHyNCLzjO34fHQkUO jnOv3cy2T4j948EAZqYOCm xY60Qz8enSrpPHWcvAHHyP 3pbdckn6vk twvdQcXyDMJtOEq5WZz2BQ YnlYwwRvBjSWG8CrC4ZEI2 gRSmsK5tbVlkkgfvzM0xQw c+MjYgWWVh bjL1C5IaEpn3RBKfgGgxBG 7bbNVtBLurXd0njPfikKxn NZ1pLBHoqzenMXTydI2rFH JvdHRvbTog WR7sZTOaaeleo814QuZgOH I9TUWgoXTyD2CgfY9gOkFf UINgIENdZ7UjxMGpGIbfB3 38TSihVaS7 GMPezqXmO6JbICMllPrjXp F4c8S3Rk1OIV0FIHM3H8My Krx4XFLdoHcxIK8hpFTlAK xjKl3fiYal zMhfQY4fQWLcvlnmIYLslA 8zVEAayEGmeGxwNF6rKOLd phnew079HaCyRRY0WGFtkS FxX7HahM2x PqTqISFaJQIfS8EsiWXvWS kjW843PZevWvV7OIWfvrYm Y4VuPGTirJvyPtV3l1P8Vq 5PUDwvdGQ+ XC56uk68N4ZmNamnAkh1FT JoVOA3vDU8aS1eDTXnABmt l1B6sNI6W1HwxuZvxb5yz4 xsYXBzZTog F23koXBhr0T6VGMtcKO0HF QpwUeqKzDrhH04Jes+PGNv dTarb8JuOuvpy2hym6quxV f7NrQbBBFv jmWywRzgHPC2r4UxFt43M5 9sIHdpZHRoPSIzMCUiIHZh iFcmgl2yhL3iVr2+PGNvbC S6rZT8qK6l OhLeZuR1EQozG396WbQelJ UqYlaha6aue5nsyKv8IaJh FZUfkaUyqSveMOT4w7McMl 86C0FgbVip u3RlRkt0vz79xAJzu2Z0tP N1H3TxAFHqzktohBXejPsj HX0qDTRkkolbGNBkpZ4mXO ZcQ5g7VsWy LsI0LNglI9NsmsW2VQQkbI GwBOGvcJYDjH9xckowe9ku wffwHxJaYLOiCCc8TIr4NP FsaWduOiBs DWC8KeH6FRO3bVSdrZ0npC uxylxlcB3aZfc+KLm8q1pb iREpSY6cyXO4OD61YR82wQ Fpl5M5sDZ8 X5KxKQQaxnoawugkzKK5TO YnJQPtlC72Rz7gbPqsBn3d TICjFTP7IZXatKJdR4BhuM 9yOiAjMDAw JVSeM2WdpFWhZIhaB716ZI ihNcS5FOZmixZpL5JaOEQm jOvpNmJ6n1O0Mj4QTC42YP 24VK98mZKt o0A1hPB5M4VcAQHqrpnyst kfqEQ2GJJwGIWwrJ33Uk4w iVqnAi4qXYBoFRU6QBLafO GgT3BntJ2k NtGoBZUoLYVxI4AedRCuVS cmI126DWxoDkJ2KGYzswDn E5YzCANwxClgGzC4s2L6Fy 6QUq00SH28 PI77iUNsc8W4aTI1X2WeSS BhmdfpuggalRU8YPJvSDAe hA90Sy4xmVuuHr3vVDVtJG X2FCAlcJKd X1UzsT7fIxZsQVDeZFUlM9 VcxNQuBUlwQ384KIuuXxL9 CWIfaxWbO5GxPDTbsJmkAi O5h4G3Ro8O UQbkfne5E1UwUuhkuXI+PC 26KXYiUM16xKQcaWUgg2wv vAs7KjItQMQgYJE1iSznAJ wvs5ZoEUKx Y29 (more content not included)... Normal [facility] Progesterone LCon 03-15-2024 Progesterone LC 1.4 ng/mL Invalid Interpretation Code [facility] Comment on above: Result Comment: Foll icular phase 0.1 - 0.9 Luteal phase 1.8 - 23.9 Ovulation phase 0.1 - 12.0 First trimester 11.0 - 44.3 Second trimester 25.4 - 83.3 Third trimester 58.7 - 214.0 Postmenopausal 0.0 - 0.1 Performed At: [facility] [address] [place], [place] [id number] Sarah Beal PhD Ph:[phone] Performed By: #### 3 [id number] ####[facility] (DEFAULT)[address] [place] [id number] Provider Orderson 03-14-2024 Provider Orders [id number] 03 [id number]#1.[address] [place] [address] Coding Summaryon 02-20-2024 Coding Summary HTMLBase 64 PehxvtmwYMf4oGy+PGhlYW Q+WV3RPYOiW71dlSAahR5i F3LUTOvBMzgtTAVQJNsPGa ZyizAfDF1iaHOuBZEz IC8+AZ0fEOCmQulovVHlo8 Z7sOG9A49ukg7iERrpiWT8 IPLxWiIdilvas7hulUv7HH cuNmluOyBt OHUhzV57DMF9zK08Ll40mE IgpRQtl8gynPd1HpMoECIj EQI5xOdgAHzfz3CzOBHwF0 9azEXpf8A6 UOIxqEbjgHOlZfXrcLF1vA 2nXKpbnlrsy9khtnamLdq7 bv99cTSkq7S1bIJ3Y5Sekb C6NZJplCRw SfbbcPYGzI5hyafhb7cxkr alQuTfSJXaMHz7KQo9RHEe lVjiAtZpFA64EHK4PHBtum EhV5CiYRYd eHpwEkB3h0J0Jq6PJ6QDMd cyM5TIUNURXZzgoIX+PC90 fk98M9QbKuhxNac2PJIjDJ Q8zLE9dD4h XPCqBRmnv9U2hJR2E4Qmdc Qoby1ri6vfTBDnOHmdF28s iQWls7G4HSXyeYI3DLBmhX emKoQxaH95 Oyc+WEGwpCcjv4PiXodbd1 zkm7hevLo8KoygUSCctcId vNzhSSK2o4SyIi5pGOAnxO V0wRX7sM1t GfZyLiQ9OTyyY728YjWvbZ XwAdbnN85qQ9UfaWA+PHRy Fck9BUDizZdsRL9aT6TqPE RpbmctbGVm vCvgXL6nCJWvekwhULGmrK 9wKSDcH9a0ZsQuAsM9TDbz F1XfMLTicludPa83lZ5uKf GfByD5GYju U0OuiaK9DFNriKKfIAchSM M1M28hl4C0PEYcKNXpNCP3 fPN3tB6ldQxpgfyuoKYsoP sgdmVydGlj AMsqVVzzW308JSWslNpgJm NvZGluZyBEYXRlOiAgMDYv MTcvMjAyNDwvdGQ+PHRkIH K7pNugWPMz wWStEEqtKs1aaAxipBupRF 9aZPXhxnteHFQskB8eXRBu vXJnzRgcPI8cKAStfjukn3 78WuVeXAW5 WXLyeBAaC9KysH8fIbKoWZ NyBBKqL8AxsIElKGxoM837 QAueZnF5INWpjwWaV8NoPH FsaWduOiB0 f4T3Pz0Hn1KlyczjY7EiwK MrBxBjNphmJQr0L0TqEoij dHI+BS99DJOcCM18FHu4YJ A8aRtpXTrb BLQoE9DdaU3gOrKrZODlDE RkOyc+PHRhYmxlIHdpZHRo BPgqOUAkEqFioIijHA2dUo 9yZGVyLWNv mJajlYWdXvXpc5saMEOlBD nlXW5ehEmkB0EtrRZ5NHKd t6k0Kz47A90vQ9FscSE+PG DovOJ6cOT5 aD2aKdQpWbD3DCpqZ666Nz ZkkKJbTgiud7orm0qjrEz9 UgY1LLSgnsRqvCxxKGA7y3 WqDh55F45y IHdpZHRoPSIxNSUiIHZhbG fiel3snJ8zHy2+PGNvbCB3 gUA0oE9xQlHsKmV0KZzwV3 49InRvcCIv Ysaap9jqh3fsoIj1FgCqKD CmfmWorOvuFHL8v8YrAq47 I2VuwFriz9XsBio1st20dI Uaq2D0gJX7 E9YkJLEjzfhbfKFxpZejQW 9yZVDrivfeVIIxhT3rKNLe A0o3XwZqAsH3HSgnE2Twui G5GPWkuSQu XJThrAUUiB7eatgxm1sjfj yuFoToWAIcRUe5LIk9CLDk pXfcGvNnSZR1YrM9OZI7aT ZxoT7msXsy xlmczA3eRqb+MCS5yUVhrV HSZC6aFjzbgRZ+PHRkIHN0 mNwxDGmgTPLunA6hADLnB5 k6AdBiLtZ2 CVaqW0XvieH4RUWwzHIaWA IhcYGAgF3aawjnk1exsovk ZxUxQIYpPMa6TAx3YYSfbN duOiBsZWZ0 BgU4HJF5yQPlpF5fmCvupi kmoX6pTvc+QmlydGggRGF0 PSo4D3DtNxr2PHCvySqhCD 0ncGFkZGlu Qa5dbNutkRxqCM4dYTBmzj mgn024DiPxs5loTVLqxJLt OMspGNF6S73st0U2CAHrKP VnUIM9tNK3 pH9dpYnchfrfwLVkgUepoa AhdEhkIHtwWXxlN114SCIc yZiqEtXpJDh1O3HrDgy2FO ExwBxdJG9t sEJlBNukDv7ubUcboNlfSM 6uXFQqktofr120EvKuj5ze SZVjrCXlZJgvGIF0L42xt3 Z4GZDtOOKm LRA3wVY0yQ5piVejwkdheI VmdDsgdmVydGljYWwtYWxp D318UYMakZsxFcCccNm4Y3 TrZyx3VLFu gAhoBR0wqDWcOKerQa1arF dbiHqdVH9tBOHdwahqr126 OnXtx9chGUXjrLGxENntGX Q6B43ep0A1 SZEkNICmZSA3eDK7pB2odR lnbjogbGVmdDsgdmVydGlj IAkpMKvjH042KBDqcGkmFv BhdGllbnQg WQogIQk9S0KkNwupjLV+PC 56FGZfVJ47nSKrnQPuc6ys gIw3QlUnUWMxSOL1sOflKM gbb0SoVGPf L80zrXQea4N0NOJooYxsrG MtBoHrgNE4fL9gWPwvjvag o9lficadDzgrl8gxvs01hN 50A64wCRdy ZHRoPSIzMCUiIHZhbGlnbj 6scG1kHv2+VPBmzUG2kPN2 xL8hVWUmUhH5ZMmqR756Zc RvcCIvPjxj n0ysu7yypCq4AfT3YOJvhm FuwDdpSZM7s0KnIt32G44e IHdpZHRoPSIyMCUiIHZhbG wtdm9caH4q Ii8+MCPubFY9vCI9kW1xHe ZvMpE2VLybZ743LdLhsNRr ZmwdQ59pS5YuyVN+PHRyPj k4WZRocHwh FO9odSUxZLeeUh3qYXT2Xz GzDkJfJRbvY6ZnCLXbishg ubbnlVJ1WRDaQRXozK19Bp 9udDogMTBw mQBLuV1bxdyhf5ytsyjaSf PlWQYcTQx0OXl6BWEkiTwt MmQcGUT7ItW5GGF3zTJpwO 1hbGlnbjog qM1lS9NmFIAthfijKr01rQ 6kWtZpXrB9BFzxHlx+Q1JB A0YMAeCdJFWWGHFYRrMcSH lDSEVMTEU8 F1CsQzc0XPEunAqnQW0xsA SfJKcfFo6bmXitkSzlFW7f UPVacvfeFYKgbB5pHDTrvU TpqOmoCR6o MIBxalobo793YaPgSAV9II CkcMHzI2GdhV3gHjPoPKQe OUUyD9WlyAFpCVxsB903RV dsDwO4RJXx tbCwX5UiDPLecAheQfB0s8 P8Gh6dRz4sDI1fBEo3ZJ04 GN02cOPuj2O4rQO2J1QbBC Rpbmctcmln aGS6DSFuKADjyV56xJDfNM erTd2wm7V4t425HCIdTHNf bW71Rt8seXofTECzzYRAiS 8pmpsmd0ht luehSwLkVXSoTUy3EGs4UG LfiGjnNmQtDCR9NkR3EOO5 sDJhvC8kxYaihupefA8lFt c+MjUgWWVh jaF7Q9NzRwu3ARCgaLbnCR 4knRLdIJpwZe8mpNfqfQil ZM1pMMKyieqaEUDlbJ0fTG JvdHRvbTog NF9dHFAsankla663StFgUM F8ZPZybVChS5ZhaZ6uScGn YQQsANDqD8MwkMFoQZrdI7 12OHfnNeC2 ZFBdrtXlN0ZkAVTesKotVp S0r9V1Yt6XHR1EBSQ8Q8Ve Qle5HUNieDcxNJ8brZBhEN yzHe7xuLcg cHnyII5cJUZlwkdkBVTzxM 9lQUAfuXWcpIroSF2eNEIt forau926TkFrEBO3ZOXhhD PgA8PcdV3r JxKiLUOjMTRxB1AqzEBwSW ptM269PRbbQaU5URDhecQi F8GeNWXkxDwcHoO1f6N8Rz 5PUDwvdGQ+ PL24vz54Q0NeCphbJqf6JN XtNOT1eQF2iI2tYFUhUMhg c5I0wBS8U4LgzoXqme5xz4 xsYXBzZTog K29rzMHry5G3JYWikRT1NC SkvXczWpFenL18Sae+PGNv gAiyd9DwPvini0tlf5omiA z6JhXxPLNc ceYyqGvyMSM4s7SjYw84B5 9sIHdpZHRoPSIzMCUiIHZh kGguye5mdN1pFk0+PGNvbC L7uOM1qE4a JhVvBxO7AKjyY698AqIpuE ScDsqmt6euo0hfmAw0YsNk GEGuznTxrDecGJK4t5ZyAo 99Q2VbfMgw t7XwYpf8kb99aLWur4J3fM V6Y1ZcOSOfbejitRTwaDqr FZ5nTHKzqsenHYXksN6kNE VwM4c5LjFl BvF8IDtiP5PgwyC5XZQomQ UmHGQhhCPZlV1httycj5xx ovfrGdCbZJSnAEd5SEg7YP FsaWduOiBs PIB0GnE9HZV5wXUzkA5ciX xtguyxmE6aNej+INm8w4to oGDcMC8pxCO6NC07WQ19hE Iqj9G4oVJ4 T6NbKKGkzooftohvwJG1LW EoXCTzpE41Tp8dsQohTb5v HPWcXTD0EIOgtTDcY0ZllP 9yOiAjMDAw MWHaO4IpjXOhBNkvR248BK ucShC8LMGgrwOcI7YrYPVt yVuaFpN3d1W5St7FFY59AG 77OM89zTRt u9V8dXA2M8LhNHHhtbkabs bglKC3EMMjVEPybW13Kw7f jXpdIg5mIRMrDPF0KJYfzY UaA6XgsH8b RoNqZHGjMPOdO3LtbHIhXG kjQ489ECwxKfJ3OATevjCm L7HpJJNbsEviLsA7a3P4Vl 0HBw03BW48 ZA88yINzn4W7bJW0P9AaLX ZngrjlatttwZM5QFYiYTTb kZ25Bk3qpCxeCt8sKTJeQS W7CPGnoPJg J6IzqN4vVrKqLIUcLFWlI7 JhrRNwCDznX834DBckBzM0 QHPygxWxT4MbJCPwzTqsJe F2o0J7Rl9N NYhliju6J7YaDpgxvRQ+PC 66EZCrWK21nKDliNJll4tm wBd1RmTgPHNePUV8eWpsLI ucj4UnTFBh Y29 (more content not included)... [facility] Progesterone LCon 02-15-2024 Progesterone LC 18.8 ng/mL Invalid Interpretation Code [facility] Comment on above: Result Comment: Foll icular phase 0.1 - 0.9 Luteal phase 1.8 - 23.9 Ovulation phase 0.1 - 12.0 First trimester 11.0 - 44.3 Second trimester 25.4 - 83.3 Third trimester 58.7 - 214.0 Postmenopausal 0.0 - 0.1 Performed At: [facility] [address] [id number] Sarah Beal PhD Ph:[phone] Performed By: #### 3 [id number] #### [facility] (DEFAULT) [address] [place] [address] Provider Orderson 02-14-2024 Provider Orders [id number] 21 [id number]#1.0 0OTGTIFF [facility] Coding Summaryon 01-19-2024 Coding Summary HTMLBase 64 JgfgtpazNCv6aWv+PGhlYW Q+LX0OTOYiX99rpDQleU7s V5DBHTdXGkgsPMSVGQnLNn AakwRrAB5laUDvJJGi IC8+IX1sVMYsRarmjIKkb3 J4kBC7Y85vrs3rMNkeoRY0 ZSBiUpIivgzmw4sgvRe9MO cuNmluOyBt TGNzjX92TZC0kE76Bu02iZ IrcDPif3ehjHm6BbFsILOa GOD7iBabHNhrf0MuZNVyI5 9xkKJon4Y1 RIGnlLwyqUNyFhSbhJG1dB 2hYSgyekgtl6cmwmymHas2 yx60sGAfm4V6eKL7U6Trll T0FHHltUCl ZlxhhQSZcZ8aptohz4qhup chDuLmWDUdXHj4NSm0NIEb cRdaStCtCW44CZP0TUIuii FhW3KsFXLz wVbaKqY8p2S7Aj9BY3ZNDl pvV5LMZHBZHUenuBK+PC90 ma99T8BsUgifCij5ELAhQD B1xSM9vW5j SEUzVQtma0A9pHC4D0Ughs Plzf6km1syXQRdNKlyK10p dHXem4N0AMMsfLZ7CIOtrA bdTsNxmY58 Oyc+LTTbaYikq8TpDbtly9 mtv1vypEj8OzxcLRWtsfZm qRsiAEP7i9HdYs5xDKQerM W8lUD2iB9u GqXxVzX5RMzeN490WtMspI DtQpxiF92zE3LefDK+PHRy Swa9XSRarYhoLQ8wP1AnBI RpbmctbGVm sBpfGZ6sASXszatdMHFfhY 6bKPVpR4w5VjSiSzU8YRen I7TbNWPhrqskId69nL9zBy WgNkE8IZjf H2LciqD9JJLyuDNxQVguZX S1B10nt9C5ERUeHSGhCNN8 fSS1fO0okRoniplgyXKihA sgdmVydGlj ABcgXUimY996OQMgvPgpNy NvZGluZyBEYXRlOiAgMDUv MTYvMjAyNDwvdGQ+PHRkIH V2yIwsJXIc hWHvSYkxSg5otFtbeRocNC 1dOGVsxftbEOBeqH8sTMUw oNAzsWyyQR6zNPLleyjam8 27NgVbGTD2 ADOseHEvG1UxuB7bFwPiIT XaGWBiH1YioZXrRXfeO533 HBqkAhT8BVEsdoFbM7FmRS FsaWduOiB0 o7O6Bj5Dm8FptiwfM1PbxF HbGiMuHkqkGQs0H9LxGpgy dHI+HF68HEWgVJ08VSb4FW T1kMnwFJbw ULLqM1HzrA1mSsCjWJPcIA RkOyc+PHRhYmxlIHdpZHRo QHmfQUGxOyQpdMrjRR9aQz 9yZGVyLWNv aKugnHVzGiWeh7ltMIAnHJ miYI7fgTzdO1MkyTV2FZWw z2g3Tz64O58qE7UskPY+PG ZiiWX6iRO9 jQ5kGxCfGcV3QXfrD963Af LccTJdQknfx7biw7klqJi8 XbQ1ZPMoecYzlUwfKMY3h1 ReAv25Y45x IHdpZHRoPSIxNSUiIHZhbG zjhg7tyX1sYo4+PGNvbCB3 qQX1rQ1sZsMlLuE4FFtjE0 49InRvcCIv Eaanq7zkg1uoiPz5NtJqZZ GuceVsjCorJHT1n0YfEp60 C6VmcFotw3SbGqc4xt40sS Vav1S0dLP4 T3HwDPAmotgtiIJgeWawKQ 0tXGTesqewOVHfwP9dPGVd J2z4QvZaRvT8BItxE0Jtxf O8UTQopDIn IINwoXMUvG0ozycxg7zbro xxTkHlETUhPQe9QXd6PAHt rUmaFkZqDAQ5VxB0PKU3hP LvmG6fzWos bqfbeX2qAfs+JEY6iRQnsM EEHI5qNztlkRM+PHRkIHN0 yPyxFZarODOdiG6qVZRsO7 a2WnHpLfT8 VBtlG0TxzkK0RRVfzWBcPG HljTAQcK1qispbw4izmhlq RyTpYDLcGDk9YMr0PXMgfE duOiBsZWZ0 ZvD5PVJ8dSKswD6msLrxxm bmfF5cYco+QmlydGggRGF0 BYp5E6FsKqy4ZTDoyLcxWG 0ncGFkZGlu Bb0llAangQdbMD7aANIogf xxw046EkWqm4fjHCDnqYYr PBeoQBC5E82qp3Y0ZTHsHB QmUCY5tDT0 aW2lxMbrgluiiEElsUbqhc NmaZazBAquQSwrZ202YIPr lPqqEhPrOJp6L3HyQdg4HN SwaVuoDT7d cWPgECdiTz0huCibzMxqSY 3tCUZuqwxjg437JjLrf4ko NWAboNTyOIiyATK7M78wu2 N3NTOlKBFr WNT8jJG0yJ0ucJktjkvqzK VmdDsgdmVydGljYWwtYWxp U384SZJjiYmcWaHcbTt9U0 IhUhx1LJLm qGhyXV7bdNErGUgwCm3onW myfVpdWH9qTUUzfhnng081 DzTua2wbUVZlvHCeQIyfAC U5Y80wn9Q3 ZMZeHHSrJRN7aYJ6dA9jjN lnbjogbGVmdDsgdmVydGlj MCciIWwjO645AUGfoCtpGl BhdGllbnQg IQlrKVn9Z4MbPtbmpGW+PC 75VSZjWU94eGGqtYPxc5nj nJv4OmVrSULdQXS3eUrzIW psw8VhCZVs I13zmIUwj8Y5TJPwcRsmdB VpImBjuEU6kR0zNFzgpksm y9gchkdlHqzuy4pprf26lW 79O45zUGzl ZHRoPSIzMCUiIHZhbGlnbj 1bjC4wRl0+TQBeuTP9jAO3 iA9gTNTfCvM8WJtpD886Rl RvcCIvPjxj t5kdm5skpCn0JhK9VKOxzq WhpKowEGQ1r5AnWn09N84t IHdpZHRoPSIyMCUiIHZhbG emwu7oeW8z Ii8+EDScqCU7mNA2kW3rHu KtFcW5DPytE732QuOwkJEg GfbvK43bG9NbtOE+PHRyPj s6OBFpmJwo CN3ydXVuEVffWl6gMLO9Es PtBjBvDKjyY0WeKDLpaqfk afdfwEA5USNsYMBcdS26Mq 9udDogMTBw qDZSlR8iyokld3ilidqvXi UjMXScAEx5QZv2LLYszZww HaYfSBJ1EfP6XOD3iULhnR 1hbGlnbjog aU8fI3PaALJkizgvEl97fY 6pVvSkRnQ7COziNqy+Q1JB V5IQGnNiZYOXIEGVZvUtKF lDSEVMTEU8 I5WtOut8EJDhxIqeIK3khL JiZCzqHj2hkLlekBgqLP6m HPUwmpreHOVckW5tNVBvuK NjzFnoCY1r FAEafhevl713BgWgJXW7AF UqdSMoK4JjuV1kYfUzBXNc IRCpP2KzvULhJJglZ319FO hnIqR4TELq ztFoW7YwIAHyrIvzWgX2v5 R6Qn0fWp2aYQ8pGQp2SU66 RD95xKNzu1S3dKG2F2UfOP Rpbmctcmln gWX5HOCqTRYfzQ75fQUqWX mhDw0sh7L5k733XPMxNLOh tH75Nv5qaSybURFrbDZVwT 5ompnlk3ow ejvqGoBzXESqPZy9OZr2KV GbzBxhGiHnMIT4EgP2TWT9 pTUhbN1gaQkhktpfxH8sYo c+MjUgWWVh qhA0U8ScIwy9QQFvmPdvZO 2pdHRcOMteZr8kmWkurHpv PL9mVCCjhialYFYskP6fQV JvdHRvbTog LO3wXYThjkukk463HaUkGW V5LWHrpTJxF0JjiR6kMjMr DLBgAPWeP6DvqCQnZTttX8 77CKnuNqL4 WPJpvnRhS4VwFQVbbMahSn K0n9Y8Li8EXL1GVCH3N8Xm Jzz8UECnbAgbVP7rbALbEQ kpGc3mqJpq oYwiAI0dBNEjxqamHDUufG 6gBUBxzWWceBblXA2rDDJv kfcmy211UoAvIXE3YODbdU WtB0GbcK7r GyOnPBYvPTSaL7PiwNVfMC eiK916DYcbZyZ8QOQwsgAg Y6KuBRSliBhuCwY9y2K1Sv 5PUDwvdGQ+ WS71bn31L6OcKxcgCqt2JU JlCUT1iWW8vP4iZCVbUCpm h7W0fSK0S0WassKjlf9uv2 xsYXBzZTog C60htGWwf8P4AYOdgFD2KN CleRkzSwHyhI18Lud+PGNv uCzdn7GwEjcye0tqn1wqbY l8BsQtNPPh jbVlsJktMHF2v5XhVe57B2 9sIHdpZHRoPSIzMCUiIHZh vXvkwe9mhA7dPg9+PGNvbC F1wCQ5aU0z YuKeQrY9FCffA406UhXciJ YgAwtnw3rst8xkgWy9HbHq OLQalsKppCdzQDC4c0QrAy 01U2XtiPdy w4AiUgw5bt32qBNsu5K9oM V3A1UiFWDxtogerGGcgRkv XU3kNAFzgqurSDTyxX1eMF ZuP4w6OpGf IuD4JEubE2VtuwT9OTTiyM VlJQYiiGFDkZ0pprkix7xk fxrfDjZdLDEzERg0VSt3KK FsaWduOiBs JVL5LmL0XMK9aYQidV4srO zhvakaaC8sFfe+SBo0t4ob rOYqXY5aeRR0BH44CU82rH Yzw8N7gUK5 H0ChJNRcgqjpmuwanEL7XD PlMLWgrW26Td1snWtsOx5v NMBxCIL5COQqvNAeG1WhyC 9yOiAjMDAw GMBgI5QxkEHaGTkgV349MY crVtX9RMFzwmCsD9LjDTMx uYhpTpQ6s7V4Rx7HDE42KX 40EM21rJBq t4T1aSJ7T1QbUTLaumbezo iobTY6UIVlIBSsyQ90Nz3h lDvaIl9gNYAtBID3YDClaJ OuG1LarP4j MaQjLSNpEGWsW0JukTIyWB byC374NDdiCjT1UPZdvvXl V1CpRSZfjCvhMjI2n8W9Ez 3FWl78CT87 QK02tHZva8J6hUF8U6QbEJ MwfsjqjbdvdAK8RPUtTJIx eM72Ep7agRqbLw5uKYHcJQ T9XKPmfYOs F6MzlO1gPfFzZNUnHPJvB0 GaaTBeIMhrV811NDyzFoT5 MUKvqrEjD8SjOEFacCqeIc F3c6O6Ix1W HZtmubh5B6IkPbudhTX+PC 31JOIyWC59eEAatQDkn6ve qLq3PyBvDSEeHHJ1vGzuEF imo8ImLUFi Y29 (more content not included)... Normal [facility] Progesterone LCon 01-18-2024 Progesterone LC 14.5 ng/mL Invalid Interpretation Code [facility] Comment on above: Result Comment: Foll icular phase 0.1 - 0.9 Luteal phase 1.8 - 23.9 Ovulation phase 0.1 - 12.0 First trimester 11.0 - 44.3 Second trimester 25.4 - 83.3 Third trimester 58.7 - 214.0 Postmenopausal 0.0 - 0.1 Performed At: [address] [id number] Sarah Beal PhD Ph:[id number] Performed By: #### [id number] #### [facility] ([facility]) [address] [place], [place] [address] Provider Orderson 01-17-2024 Provider Orders [id number] 02 [id number]#1. 00OTGTIFF [facility] Coding Summaryon 12-21-2023 Coding Summary HTMLBase 64 KuijytjfAIa4uFl+PGhlYW Q+UY0VLKXuZ45uoGRuoX8m Y8EUSXaUDjmeTOJWXFqKVk HvkgBzCK2tzOQmKGGy IC8+YV7kDUWrGblorAWkc3 Q0oPS5J09llv9kMUdjpHT5 RWDkWpWyoitsp8kqcLn2BZ cuNmluOyBt LUCbmW62DGX3pN66Qj68aI HowVVqi9xvkIe7BuFbHITi OVC6yBfyFTagl7KyBWGmW9 5rcRLvp9K6 UUSzzDsjrXXlRaDwqKD0fX 2oZQsnsffbe9wyshdlWrh6 tn53zNZrz2P4cMA6O0Trfi C4HMKizLCh JkaxpHCGwF1lhyniq5bicw pyQyOqQRFuXSr8IBh7DETf wOcuSsMfBX50TBD6MAMlxz EbX3AbNNYz lWwaXuS2t0Y7Yp1PB0TOMl nuI0JYCQKNBXwdcAT+PC90 uq49Z2BcFmeyDjq0KUFhKR C4vUS6rY4b LTXaSIfvc5K7fZH6V9Igtg Fqhk4fo0ppTKXvNMzwX34j pURsr9L0HLMbiZN5RVXcoL ehCgSwqU16 Oyc+QUCngZzwm4BjSkmzr9 ksz4sqpQw5IrswWQKpadXt wXjkOLL7u9QuWw1eSVWncC T0nRH6jA0x DaKyAgI8MOdaF804NnSrfV AfRhjqD33mS6FbnIE+PHRy Jbt5ZWYcaHuqGR1sC7GtPS RpbmctbGVm cHtuGV3oMHMmmizlIYEmmZ 3fCYAwG0p3AvAbHoK5ZSaj D5MbJARcmilgFv67mN7hIf BlRrB1TVil F6CqjhP8LDKxcCMfDPasBO K8T38zf1R7WKUhWGKpPMP6 bOI6rJ3jdFchaiplcSWocY sgdmVydGlj MDxpWPemO419SGMdlRpfZy NvZGluZyBEYXRlOiAgMDQv MTcvMjAyNDwvdGQ+PHRkIH S5fCbdPEGi rXBmSTyePe9ulXxnvDjhBO 0rYXYyathzUJNwnE1lCLIf yAZpjHwuTW0lRCQutphcl1 70XgUbQNM2 ZLIzaRVjE3GwvV1xDvQcPA MdPOIjU0OusYCrCQfaU927 HZtaMhX7LJSbyxXsZ6KdIO FsaWduOiB0 r0D5Ya5Uv9AzihafR8IehG MoEgAbEtrxQQy4H9PgQxtx dHI+FU87JJEkMO10GZa4HS U2uVfuPDbb LXNpU1ZncF5rHnVwIJOtAH RkOyc+PHRhYmxlIHdpZHRo PIdkKBWzRsIxlWzeEG4dDl 9yZGVyLWNv dHtmuUAyQrPeu7syDFGyUX eiXN8ocBttS9TgqIR2EJKd w6w5Un49R60dB5LgxUM+PG GroQA9eLW8 zS0fHyKfQgM1KAiuW930Zc HjuCJjRrozw7txu0hacDs2 QiA4RGAshgRapNssBCR8o5 KhBb42L12t IHdpZHRoPSIxNSUiIHZhbG pzky2ijH0jFc2+PGNvbCB3 oPX1uX2qJmIyLuV7JYhaU0 49InRvcCIv Qexlw6wdr0yesVi1PgQvLY RyxzBjoHrkYKM1y6KgOz87 C0GioUucx3KhEus3is64nG Vxj2I9fCH9 C2HgUBAhfvixbPNnaDozZK 1qRGYbblkoJGJgbK0rWZVs G5z0LyWrDcT4RHllG9Endk K2LKGodUTa YHWcwQQSrA5niqzyr2qzuz imFyXfSDLeKWv0ZAr1FASk hRhmDbTuAVT3YbG2KFX4vV YfcI1ayCce ilriaX3aClv+RDO4qEWoaS OXJG2sWboapGB+PHRkIHN0 jDbfCWokURJcvU8eQTYyD0 n3KwLbDqG0 SMclI4EurhR7ZNWxvORtOW YrrHLKwU1owdemb1bgmcvl OiEpADImZRn1HCu4BNEjiN duOiBsZWZ0 LfH6JWI7fFCpcC0mvJdpkc ujnK9mIof+QmlydGggRGF0 LRr4K7EsEja6QWCqqUvvPF 0ncGFkZGlu Jt6jcTysbNgeLE8qEPSswd fpc174CkWth4agGOYriIUe AIpsNOZ4U41gh3T5MCFpCR ImWLL9cLN0 yP3ocRwtfubcrODswDxbcy MswUnsMPxeESmkL028QYTw bQivRtTgHLw0A6QsQzq3WI ZxrTelCI0s uUWkNWehAi3quDtkxGcjWQ 3dAPWgjqkdq043VzCwu2jd YJHfuRRaAKaxFAK0S70tm7 C7LGWnIPVa JFL2qJY2rQ5gcGzualegxE VmdDsgdmVydGljYWwtYWxp S418EYCtsBxsVqJqiFi9M5 KmPnp8HKMr wHipCQ5ioNDxHZqvFq1wpW khnPqiBG0tUQAehdcfp085 PvBtx8xaPSOjyFPuDQzuSU B8L45kx9F7 GNGuROLiCVQ8wEG6lT7wxT lnbjogbGVmdDsgdmVydGlj LYakHRemD056OACwbOseKm BhdGllbnQg XLlpSNm1B9GwRwbjpJC+PC 42ZIOyLW13jVQkqUYcl1hl uEf3RlVnQAPzRFX9vTkjLO uqs1UgWKWs U30zaXGgq4S1SVCxiRflzG NiHqWjjLV6cR2fJFmxhova p6xffmnmUpxvc5pcgc63mG 47N38qROpt ZHRoPSIzMCUiIHZhbGlnbj 4hrN9vBd9+HLRdoMZ4mDF4 yD0wBSOwPgO8GHvjQ556Yr RvcCIvPjxj q7mab2qgvTr0YeL3WJDgqs LvsPznUKT3f0OxTc61V19i IHdpZHRoPSIyMCUiIHZhbG naqc3uaB2b Ii8+SBGwiIR2kPM6tI1wZr IzXuK4MUjnA043XrGayOMn NykuK55bD7HsqIO+PHRyPj a1MNHsqWpt UA7pfRBjTNkyKz8yMNE7Vc XtGcUiKSrsZ1UxONJbtadn zaacaKE0CLRmTFWsmB31Ba 9udDogMTBw lEAKbV2loohyv0bolrawWv LvKCQbWAx6NCo9BIVpdWas MjJoWYW0TnF0BYB7pRFmvH 1hbGlnbjog aG9pJ5BnHBIcaohoMr12gX 5bEmKsYfA3EDfdHaa+Q1JB R7NMRhJyJPEZHSBUVuFfAF lDSEVMTEU8 S6QtBmx1OLSkwRcyHY6koP TzNVdmQi4npEdxnKrrSO3r WBRnsqesVAXfvZ9rLQPtaY MddWprEF0v NVOtzsvxs119KnMrZTN6JF DazYUzE3BatO5aRrSaEYIw CQTtG2DyhLYdKWiiV175LW trDtT4KJKw oaMxQ7OwUSNdzBaxGdW9p9 I4Zu8sBz8fKD6iKKe8WC32 OB98qPYah4G7ySR3L1DgSZ Rpbmctcmln tRJ0FDAcTLBbsV65wFHnHJ wzGd9cq6G6x161ZQRqKKTl aU13Wy9zoJbtGCQqiSSPzQ 1imbpnf5ns hdsuXbCwVIUqBGk9YTj1KD NiqJksShEuHHU6PmP9VPH4 uYGcaV8nvKiyumskpJ6cGn c+MjUgWWVh soM0X6UfXft7LWEtsIlkZH 1kjYHrBKfbIz2xeOyjbWhj UC7yMKUaiegsRIKhtQ5uUI JvdHRvbTog LA9cSHEjsyxtl053WkOxRC C3NUTmbQYiG4TtsU6xFrSr ZLKxTDWdC1TudXRjASayX6 95WRoaGjY7 AWVkhrDhO5IuOLZwrZepPe N8a0W8Tz7QIB3SUTP1J7St Wbj7FUMxnErsBE7ceLAzYU rjPa3znLaq jKhaIO9bZHXshxooYTZtkO 8sDRNddRWaoIhdDH7lIUQy iklup714GlZwIWY0TWHajM XuG3KpqZ6o ZeGjUZLcXDOoY3LdgPPpER vfO761JKjcCvX8SYPexnQw V2ApSAQliJzaOwQ9k8H7Vu 5PUDwvdGQ+ QS70dx12W0QnTqzgUoi3CQ MrOCH0zRJ0kQ3iCEAjXGwk g7Y3jWY7K7EkfkArkd3tb2 xsYXBzZTog F28efTGyx7R7RUYwuHR9QL TfgHsgBwIunY84Lgw+PGNv xHipb9HtEmrnd8hiz2ltfL y5ZcChLWGe mqFacTgvBOP1x1MzIq44V5 9sIHdpZHRoPSIzMCUiIHZh qHpbxt6qoA3tMy9+PGNvbC U3bLK8lO1o FwOlObP6YCixM587TvUyuZ NzLsvip1gos2mcfIc5OtOp GOQzjcFdkYqcQRF6y5GlUg 26K4FmpQhs h3ZeVtj3gx50kZUvy5G6gF H8Q1JtVVFdmsaqrIRfbXsn XQ6kVHPmejvtKOPtpL0xAA QcW9m1QdUu CqP6JLgdX3TvwrR8DSDxqM ShKHAftHXMjB5qvykri2kh jfvaNxTzWLShFPv1GUm7EY FsaWduOiBs LKY1QjR9YRF8xQEmtQ3gqO azzdvgzI9lItg+SMz6a0oe fOQsYU4vxDK4NO78QN73fO Sdz6D7fUV8 T5CmNTFoodnqmernzQE2BM TiYDOmrE81Ff8ljLigCt4h IWOqEKU0QDSumBOyD3OrzM 9yOiAjMDAw DDXfZ9FtjSSvRDeoM397VH veVuX6GUYaqvNvB3FzFNTo tXvoInA0g1T2Xt1UDG94JO 52BD96fNAa k2M9wKT7R1DxIEOqunvfer pebJO8JAZsPKUsiQ01Pu6o rBvqDl5iAFUvEGM5KBSifA CrG7JtgF2b NrPxOYZbAFMwQ9CrkYEmQL jxG242YGkjHuR5LSVtlgHx F2PoIWClfXbzGxC2z1J2Xm 0BEu55EW66 LC38jPYgl7C7pUK9A0JcTM IlwqsyxtdbcKG6JAWuIQAx tE22Fa6msLmeZo2zWCLlTT K2YJSnkYKu A7NumL8uSsQqTOYkKXWcP3 FpnTScIWgfH385KZtfSiB7 VPBcfhCpI9QiRVVxeOmmIf G9o8N5Zq7T RMwnqja2Q7XaRpqdhYU+PC 00OCGsRV92bJNzoQRdn5ns iMs0FqHwUGKoMUU4zCbaRH amq1WtEKOg Y29 (more content not included)... [facility] Progesterone LCon 12-17-2023 Progesterone LC 9.6 ng/mL Invalid Interpretation Code [facility] Comment on above: Result Comment: Foll icular phase 0.1 - 0.9 Luteal phase 1.8 - 23.9 Ovulation phase 0.1 - 12.0 First trimester 11.0 - 44.3 Second trimester 25.4 - 83.3 Third trimester 58.7 - 214.0 Postmenopausal 0.0 - 0.1 Performed At: [facility] [id number] Sarah Beal PhD Ph:[id number] Performed By: #### [id number] ####[facility] (DEFAULT)[address] [place] [address] Provider Orderson 12-16-2023 Provider Orders [id number] 05 [id number]#1.0 0OTGTIFF [facility] Coding Summaryon 11-24-2023 Coding Summary HTMLBase 64 RneceaymLRn7oDa+PGhlYW Q+BX5RHIMpS97vuHGlnP4p K3FRQHuDWgcrWWDEPZxXXt GovpZyHE0okGDiPNPx IC8+NE1tOKNbZfrfnPZlu6 F8hGF1L01ide9qISrxsMW3 JUGbJkWadrxqn3jvhHm6IW cuNmluOyBt GRGvpD53IZY1jX05Og78kD UtrZSrd4achJg5PeGhYMPf BUR0xRjnMDpoh7AyKYZkE1 0zqXJme8M8 BSWlaOzzrPLhUvIuiSL4aK 6wZUpmcyzva3gfwwwjNma9 ju52qQOuv0V3eHT5G1Kjal D0IKSkqMPj DbsggBCAdX3vmwelo1itpe zbPtZkLHVfTAw2YQg9WQAt qMijIuWaFC56SBN0SIAlcm HlC6TcNXPv fNopNlZ7n4Y1Dm9TU3AEDu gaO4JWCJKGWJqaeVT+PC90 gf86X7RkGjbvBms9ALXhYO V5tOB8uO2b CKZjFFtyb3H8eNP2P4Lzte Bfjl7as5kwGFDxCBjqW57o fJGhh1Y8EQLdiTW1IVSlrP gxYyRwjP95 Oyc+VUDvkFtjb3NrGebtm2 ovu2nrhCu6BrmzYKFnywVs wBhdNMS0g6JmBg4cCAOvnM V4bHZ2mN4c FkYqWkU8ZWjdV299JiJbiO LnOhepP53dG3FfaUD+PHRy Hbe3CBCqmDjcLM3fH0SgDV RpbmctbGVm uPkmRB3vOJUbohtzQZMsfP 1hQKLfG7j4TuVmFnD6FKlo F2TiINNhqwkiPg63iJ8eCq FoRkO9PAuo S8GdjhL7XAMdhJGiPZguEP W3O65as9V9VTCuFNFkKNI1 fHG4kY5yuCwlzraboAIukR sgdmVydGlj NCjjUKtrE212CNLwxPysJh NvZGluZyBEYXRlOiAgMDMv MjEvMjAyNDwvdGQ+PHRkIH Z0kQxwECOk hIExQSrhBl3ecPwceVjdEM 5gXHKlvkobKLMajM7bWZXo cEIiiMrwNV4uGQGhdpyoc7 59MgRdSLL1 RQNqdACaT9ScqI5eOtIkGN ZjRVQuT7XiwBTqNQdtY025 EMdxFiZ9LRUmoyRfV9EeAZ FsaWduOiB0 l0Q7Mx8Dv4KnraxqY4RzoO NbPfFaFolyWUg2D2LzByao dHI+AK14BEVfAU18KFn8IC N1wYliEBaw EQIjS0KrhS3cZgUlXFHxED RkOyc+PHRhYmxlIHdpZHRo XQagQRWsQcPbnZudEJ8iSp 9yZGVyLWNv vFsxoLCxSiTgp7oqIBSqTD kqVA1xlUmuU2WtqBY9CWIi w2j1Aq53J21bQ3QcuFU+PG AzlEM1vSU8 wH8bObVaInD4PYadS449Tv NjhLAhLamrw4los8gqzSu5 HjL1KRLdsyTfdUibYZA7s4 GoTi36T81v IHdpZHRoPSIxNSUiIHZhbG ejmp7jxR3zLs8+PGNvbCB3 zYO8fW5rWyUjTqO7STlsW5 49InRvcCIv Xyznt0odf9lyvGi2GtOpBI OtsbJmoDslNWD6e8WdEr98 W7AzfXbkt8BaKcv2qb84bF Pxk8S3vPA4 A9UvVOThthcghLMmyKwjCS 0tAMCpwdaxNEAwhC0lZAMd U6i7UyMbBmD3FHvnQ9Rcpt O3QLMdcWXa OMIbfHZMrH2gyvrmh8ikdv rtOxUfPRZjNNo7NYm3TAPp uQvsFaWrBXB6PpP7AMZ9dF EinP2zjZpf ppbvkD8vHpb+GOL7kTUibF PFAP6sQykxeGX+PHRkIHN0 eQxdCWorBOUohS5hOWWyQ1 v5QkJzSwF2 HZdiP6AhiyQ7PDWwmSGqGV RaiVDDnC2bowoze3gwqdpt TpOfCFSyTDz1SXh9KFLgmS duOiBsZWZ0 XsT4HVR3mNYanL3tdHxggy aakS2gQic+QmlydGggRGF0 UDw7V4EbCuk7CNKzfYwmRP 0ncGFkZGlu Mu4vgQolcEsiLT2bNAQrfz zdk009QtLug5lnNQSnuPDb YIhdDBS6A80kg4A3XMDoBD LrWEZ0bBO8 bW6rbRwefhyebCIyrIwoov BdgCuvRJibHAccY069BEWc fRdfInNfKIq1R4OkAnl9NN VigHbsRR4a lKCbCOkkMi2dmGqnkDbrWT 2cNNJvvncoo498FaVgk1nz ZGLjaPNoKJbwZMK4T30hh3 H1PKZcQRJb MMW9aLK4dM7wsWcvnhfscG VmdDsgdmVydGljYWwtYWxp L749DVOihBokVdUgmLu3O2 PqIkx3ZWZx fNtdHK2juDZwEMfxZl7xwB emvBbeDO9aLAKlzyhhs931 DeXzp3nhEYQhiVWbUDaaMX R8Q99pl1A0 YJOkULBgRRB8yOX7eD2lmB lnbjogbGVmdDsgdmVydGlj TPqpSMitT724LDCooXkkGo BhdGllbnQg IUogJWw5T4SnVklugYJ+PC 27QHSxPH38tAOjrJVri6bx nMu6QvBlCARuUFE0sPitQM ugc7CiYSYu E20igNUng3P9HKTplObnaI UzZvPifKF3vK0nILxvbeaj e4zdfabxRealm3jpxe44dD 37L00eMBhd ZHRoPSIzMCUiIHZhbGlnbj 6spC4uCe3+YWFssAT2kJT5 qL6wLHOhIzX5DDqlU671Yy RvcCIvPjxj r2jhk4patBf6DeH6SDRtgt GnnSzzIEQ1j0EoTz37G33o IHdpZHRoPSIyMCUiIHZhbG ibvo4lzU7n Ii8+XUMvvPZ6ySM3eF1sRw YdEdZ6CSuxK330XoSovBUq CdhkG42uQ2FpuJZ+PHRyPj n3PSXmbDek VO0akPAtXDedGz9cIGS1Ac IuPqWaSLuwM7XjXLUixxfp fttdhJB9YLJsBFFibK82Wn 9udDogMTBw kUFFqD8cmiuot5vsoymcTb VsCNLwZNv5LUw1VNRkaGcj MqZdLPZ7PiY6GCG8bFVlmC 1hbGlnbjog jG0dH5KcRJFljaeeSx87zF 3bQqUqZwZ7NSifGjc+Q1JB N4AGSjHdPHHSQVXAOpDfMH lDSEVMTEU8 X5DuKvq2TKXcaFnqIP4ezM UxFPpzFs2viCwwgDdpXZ6z MIVuhvbvUDIitF2lCOMvaL MssRjwWX0m ZYRznpemc902HzEeCJT0KB OsyBNuM2WjmS1xCyNcWFSd OFJdZ1DaoAOvBIvmX297KM fnRaS5YTQj grHbI8PzBFZxdCvrOnE9f4 X0Vr2wWl6kGW5hIQd3XW19 EU37eKSjg4P1eUP5M8FbAQ Rpbmctcmln sNN2XNGjMVWcmR18qTZlRQ nuFj3xb0H1e862KIJnULGp jM39Av5rqMolGSLxnKXUmD 8apnmlv6hb ilizUcDwKIAuJDy8VOn3OK KwvZxdBzGkBYI2CeC3WTX7 fHLipS6oaEigzkkasD7jGs c+MjUgWWVh bzC3A0ByQxt0AAKhtQtbKL 4xnPRmAPgbXa9fmXvcyFqy NE9vQTYginqmVHBjfY0oDH JvdHRvbTog EH2vRMEuknzcc200UnRbYI E5KOIrtAWtY8ImqS3fZpXb JUHqPAVrF7AdsFTgTFlaX4 16TTtoUlR2 BPCdzwWxK3YjNOSmpXukUw W6y5G1Kv2BXV4UVRS0I4Tt Rrs3ISUoxQvdCM4yaNJbSB unUi5hkQmb sUanUU9wKIAkyitfLQHsgO 1aKDEyyUWfdUveRG7yWSZc wzeuk635HcLsUBN1MDUjjT YzP6SmbW9a FvIuDJSlDNYkC6HjzYFrSA ctP225DMsdNxF1ZMUglfEb Y9ElQFHftAibRaV1t7T1Ar 8DfLAqX6Le R8q0X1WvObdikXY+PC90YW IaEP05tAAkpQMow8cbqVi4 DnGkEDFaBVF7zUgnXWhpc4 NcFLLqJ36n uZGry1B9XBZrfWlmkSWkUw EkgPI4yR3dPChapylmu9my wtaxKzrys2rhhr07oB64T9 9sIHdpZHRo MCMvLCEqVJUnyEttgc2vaS 9wIi8+RIGhxGQ8xXW9bI8k NbPaLkF9UFwaP310DpCycO AtSzlxp8bw v7ddmJi8TxHeRIPbevTmkS akYQJ5x9HnQy04N06tQUzr ZHRoPSIyMCUiIHZhbGlnbj 6kaU5oMn7+ JX7zt0cjur39fO27kYK+PH VnIUF9jLgtBFsmXIGnkI9x DWpoVgK5ZWKzIoBpwV30vB PuTGtnRe4g yTypsNvtSX8pKOExfzlew7 54IsEvv5mwFTVhzMTmWSiu FGZ0W38kd3X2HVGuJOJrSA O3uZU7tH1m bGlnbjogbGVmdDsgdmVydG wfSYesGJdjB263XYXldJqd BbHcqZZxY7wydlGEHH8aWr wvdGQ+PHRk TEI6gOodSCnoJLTzeB3rWI OdE4x2WbQpYyV3IOikG9Bo dbX4PHUnbCZhVSUpiZFWvH 6dtfrul5sm olntOrRrIVWpNTy0YRx0FB HooUzmIfCqGAV0SgI3QFD8 mDUasJ4dtVefhubnzR5lVg c+RklOOjwv dGQ+GINvEYT7jJlrJNtlDD PelP6hWBKqB5w6AwCoUwF0 HEmeG8BekzJ8EFRybPVmWO KytZDWiU9j ryrxh1dskmvcOuCwHRWhPJ z9SLo2ONDfnIvhTkEnQMW4 CyZ9PQA4vXUnpS1xgAabve odiL3eWjy+ TVJOOjwvdGQ+GFJbGNQ3mH reLKdfURSueG1tOIQbW0i8 ImSnOtB9FKdwF4JuroA6CK JvbGQgMTBw mGZYpF6hazuag5pejkjdOf FsKLSvJWe9VVd6QJKlzNkz PlNqOSY0NhS7XAP0bRAuwZ 1hbGlnbjog bX3lTmu+JDN9LOT9DX53QF 04C3GcJgvxiCWwuFR+[facility] YmxlIHdpZHRoPScxMDAlJy OsrYjyPI7o Ym9 (more content not included)... 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 She used a sharp knife, [...] History Medical history: Resolved Ankle fracture, left ([id number]): Resolved. 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 Surgical history: Cholecystectomy ([id number])., Reviewed as documented in chart. Family history: [...] Polycystic ovaria (more content not included)... 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 She used a sharp knife, [...] History Medical history: Resolved Ankle fracture, left ([id number]): Resolved. Ankle impingement syndrome ([id number]): Resolved., Reviewed as documented in chart. Surgical history: Cholecystectomy ([id number])., Reviewed as documented in chart. Family history: [...] and orient (more content not included)... Normal [facility] ED Note-Nursingon 11-19-2023 ED Note-Nursing Pt ambulatory back t o ED rm 6. Pt C/O Left index finger laceration. Pt states she was trying to open a box and cut the finger with a wire bound box machine operator. The wound on the index finger is a straight line of 4cm with a width of 0.2cm. States last tetanus was more than 5 years ago. Pt is A/Ox4. Normal [facility] ED Patient Summaryon 024 ED Patient Summary [facility] - Emergency Department [address] [id number] PATIENT DISCHARGE INSTRUCTIONS Patient Information Name: BONNIE ASTUDILLO Age: 23 Years Date of : 2000 Reason For Visit: Laceration of finger; LEFT INDEX FINGER CUT Arrival Time: 11/19/2023 09:14:04 Primary Care Physician: Anthony Gomez MD Attending Physician: Sreedhar Cheney MD Comment: Visit Diagnosis: Diagnoses This Visit Laceration of finger ([id number]) Laceration of left index finger (S61.211A) The Pharmacy at [facility] is open Tuesday through Tuesday from [...] problems; contact the [facility] 28/03 Crisis Hotline -Text [id number] [phone]. If you received any narcotics, sedation, or [...] legal documents With: Address: When: Anthony Gomez [address] [place] [address] [facility] (1) Within 5 to 7 days Comments: [...] and treatment you received today in the [facility] Emergency Department were for an urgent problem and are not intended as complete care. It is important for you to follow up with a doctor, nurse practitioner, or physician?s quality assurance assistant for ongoing care. If your symptoms [...] so we can reach you if necessary. [facility] Emergency Department has provided you with a complete list of medications post discharge. Please inform your laborer/provider of your visit and for further instruction [...] better healing. Unl (more content not included)... [facility] Coding Summaryon 11-02-2023 Coding Summary HTMLBase 64 GgusjnbfWWk5uNv+PGhlYW Q+JI5GBZTtL08thSRvuM5k S9XQUZeHXfzmLZINQAgKDh HuuoLxUT5zxYGaINMi IC8+QS5qRVPnMaswbUPgf0 V8cGR5L31gel5oHEshzNB3 FNWzDaBtjkimj4xalLw0AJ cuNmluOyBt KIFrzV86ZTD1yR14Vn80wM TleIOkm0nmiUc7IzQqTJOp PMQ2cYkiSYrnf8EbNFOwH8 1ovNWdk5V3 SUTzyDplzTAcElQjrVF8yB 0sYRymxqlnu5nwcjagYdk2 be89rTScw5G3mOE5B3Mcxk X3ECPtdAAp OlabqUXXbB5oyjlpv4ghwj idNpHhGBRqOEl3ZDr0UBPa qFjeIjUfFH70BHI0VITrob DzD4OaNMFf sJnfRnV7c6D9Ja1FX8QGFv vqL8TTXNQPLIuxiVZ+PC90 bn78B4PmJgrcNfb6UEDyMB K8pIW1vW5w DQPaCLqsf1Z7gIG6J2Trch Fhqk0gk4etNVDgRLycO65g bHCco9K6NVQkzZB5STTqnD jhWpVjcJ13 Oyc+SLOetXxlu9WmNackx2 yxg6vbeDd1MihlOBGmryUk iLktYMP4f6HvCb6gZDVxvK V8tAX7pW5f YmLeNfA0UPqgC352QmQxdQ KnNwjlN97fQ2WjrTJ+PHRy Xau9NIKotVxdUA0kM3ZfCP RpbmctbGVm jMtrBT2wPPAiddabFVJzyI 5aVVCwK6c1UwZtVvX2RYyy T7VoYAZkqttuBb35nZ6gEv WsNcB6OEbe E5AiwzP0PAJjuSSsEOwvED Q5Z76ct6R9IBNmEOBgNDM2 cBI1qI2azOjqepyyoSPjyL sgdmVydGlj URtoZMfxW508ALEtmJkoBn NvZGluZyBEYXRlOiAgMDIv MjgvMjAyNDwvdGQ+PHRkIH S3fTjaHXLy hJFxXOpjTr0gnUsehYbaHS 1gAZFuzclhKXIdkI4hPUYh rNZjzXmgXZ3gXGXflcixc9 37BzCzTKI6 NPBbiSSoC3QheB1iOzYqHT UuHMPsS8OyePUlMMfeW984 UTipFjE5TAQxbrGaB7XkCY FsaWduOiB0 l8O2Cl2To5OlxhujU1XiiB VnIjFbBmsbELa2X2YtOrcy dHI+FF59IYKeXY53ANf1HF V0aTemNKlq XUHzQ6IpcA6sLhLnSFIoVL RkOyc+PHRhYmxlIHdpZHRo MPigBQGwEaVdxIhaMN4kAj 9yZGVyLWNv mPxnzDHfPrZli0yzXJYaOT wxQH1kaUsfY2HnaKY6APBn x1i4Ba33S68uJ7ZxsBJ+PG RodSC8oRC4 aG4uNfGvImQ5QEkdC849Wf VioLAfUyntt6ygt7hmjDa6 MsL9OJWxroFbwBghEBH3j7 AwVc24F57w IHdpZHRoPSIxNSUiIHZhbG czmi0mnM4rQg7+PGNvbCB3 xZV4tM8eYzGjWuC6CTvuL1 49InRvcCIv Bqfgt7epq8ztxZj4QmUdZX OgpeTmhXywSJB1w9FqVh99 G1NwcQahg2ZeXge4kl40yH Dkf6Z2cUD3 A4OvFHAtvkqqvEIpfXqrXH 9gAKXvvnzxOGKajF9bTSYf N6i1JnYlCzY9XNpsP1Ntsy T7UMOyfJCs WAQfsUWCyU5vikeya6pwfb spSyDeMZUoMOv8KOp6EDOf wCoiUfRyTSE6JeJ3CHI3vG KvkB5flWcp ykddkY3sVrk+WCV9kQCgrU NVOV2jBtrsbOJ+PHRkIHN0 fJymVTbtFTNmdU0mZXMsM9 y1WrKkRgZ6 ODfqJ2BjefJ7IGPazYHjSC NzpTPZpK8nbfefx1pmwdvl XyXkCDDdWOd8NYf1IEUanS duOiBsZWZ0 HiU4RHZ1lXTrkL9txJuhhv pyvX7yCje+QmlydGggRGF0 VEt7M6AfHex1HYZrcPzdTU 0ncGFkZGlu Ya4joCznbJkvRF9gEZUejy fdn502RxSgy6woCZIweUGr CSapWBI6I03ki5Z6OPLrDL UwTWD9oKS4 qS6qnDhtebbylTFaaMvkii WphOayZAvoJZstK037TOBa cPhgWsYmROt9A9FjNfo4SC PubUujKO9t sFYoIWvkPm2fvRqwiFezAP 4nXEZhvlbvs886UkGrc8xp KTHlwAYgOUhpMBA4X68vt0 K3OUAuGATg EDD2hTO6kA5elTicbgzogR VmdDsgdmVydGljYWwtYWxp A485HVClrZwcJuBdyCj0Q8 WyQqs9EBEb rDdzXZ6jcGLqXNzlEu6jkT bdnJliCL4mBROpgnxvf077 NgVdh2rkAOLrsEKpRBceNJ Y9Q02de8Z0 ZQHqSXGiBGY7yDU3aQ0tjM lnbjogbGVmdDsgdmVydGlj HWchDNiiU820VDUgiEnmYq BhdGllbnQg EXxjXYs0X7RhSiarhWP+PC 15VZNhCA71fBXjsRBpq2uf dSz9AaDgGZDnYHL6gNglBR uqx7ZnYHVl V23tuMSxh1O9BXMvhMuztX ZmImKncLZ0aD1oLTvjbclq u6ophgkfHfpjf4jura70rD 46L35mDFdn ZHRoPSIzMCUiIHZhbGlnbj 8ffM4mWl8+FWSbwEE4tJR8 jS1uRQXuVwE1HUxeE483Je RvcCIvPjxj f6fgs5cjmLo8EsD2ODFvqx FllOgnYHI2m4KzXt88X69a IHdpZHRoPSIyMCUiIHZhbG yaiu2apM9n Ii8+YQDljBD5mPC7lF2pFz LaYfE8SLonO170RuWbgEAs OtvyT67yD7UzmAG+PHRyPj u2OOYkkJhk ZP3piYNxPTxiOs3bRPZ9Jk LkKhPjQThzW5LgGMPjmmey enakoBI4OCXmQYPnrO82Dz 9udDogMTBw kKVDcX2hrohjh9klrnhrXl UzUUSyULj0JUx4IWQsfJng UxNvDSI9TpO2LLG4jKEsoP 1hbGlnbjog lO7pA3RkLXUqapihBr28xG 5fEmYrGcZ9BSzjJix+Q1JB A6DDJqCdYYISOALFEvTgZC lDSEVMTEU8 K7FgAhl9ZSXopXjqHM5kkE VyOIwiGb0qyGrixPlgUJ4x FPQteqnoFSQblW6qDXQdhL NhpVziKA1l MNUyzdzvm867JuBsKIF7CS CyrQSxS6XqgD2gRvXcJWYn RNKvO5ZcrSJyVEcrF925TI xxZzQ7BZBy iyWsO4FuMUZhbZmuDiJ1v9 V5Sr9iYx1hAG8hURj6PR92 OD90pYDsf3D6kUA6Q9DpOK Rpbmctcmln sBE7RUDhTFKzqW53eAUnOS ebCq6lp0A9l059XMQmQFGi dG38Al7swWlrAOCjbKGYcM 0bqhlls7so ohszNyRsTMWdAFk1ASz0RY UraWzdQeKuTDC4YdK0OQX9 tORhdJ2bnMwojpcnqV7oSu c+MjUgWWVh hsU3P3XzKrz3GKFnbNwwOF 7cuDEkBXtfCx0ajBvwqAsw DN9cGFOfkjhtSTSsaG3rAT JvdHRvbTog VY0pPKZmkjnhb787CkCpFW P3DTJkqNQtR4RaxS7mFqYf ORHhUHLqG7EruPVgLAqnD1 88GIrlDtJ9 WJIwsnCgM8KjWAFolPjyVv I1e5L9Bh4UCM4HEAZ1H0Vs Zud2MUMukIinUE1puTMhHY vbKk4txUoe cLwoBY8jABGsthtvAWYadA 1yMACmoNZitLhrNB5fYMBs skywg138MyEoHQU5FIIwiO CpR8FpnS7t IwQpZXYwQAEuB1XgjAPoLX hsN399AHzfUlO4LGCkxwKc O3HpDRIuwIsaIkF4c8F1Qy 5PUDwvdGQ+ IR97xe51D1UqBgqmZfv7FI HxFAU8yBX3yU0vZYKiZXke q9Q1hLQ6L8GrneZxfo2zu7 xsYXBzZTog R27ghOCwq1D0NXDwnGA0UM CgqPfxQyFguO85Wpq+PGNv mMptq7GvHoyck6khr6rmwW l6OhTmIEQs tvMaxKqqYBM0p3BqGb22F3 9sIHdpZHRoPSIzMCUiIHZh pJyyef9oyO3cLs4+PGNvbC A9dPD6sH0r LrViFrB2VNsxE954RbMqnP NxAozny1tfu0tsuEh6GiRp IDBmtuRxzZmlDZZ8d8QnGt 30W1CvhBqe x3KxOfm5kk40pWTbu1E8gL E4H9BiAZJfatcpkCKqwCcm TP8pEXSgrctoGYEluG5zQO JfY7w1CfDw YyB2LEhqQ7XomoS7TIPxyE FlTDCbzYKKdB1llhhom8cc sieaDbQsZHSlIXj0ETp1YB FsaWduOiBs FCS3JfJ1STA7tQElnF7yfX zaabcbzA8mInu+MIu9d8of eWUhXC5bkAV6RD15EC65jA Hqj8J7bVW0 R9OwVHDxzyatzxkqnUT7HQ MpWCFmbP39Ul9ixWlrBs6w MMApOLN8FJQroMTeA0DteJ 9yOiAjMDAw WUCsV9WjvDFmQMwwM658IH vrUlU5YRUjujPaX8YrNAMa gJoxCyF0j0P9Ws0DEE33OA 21EB57lMLh y3D9iXG3I5QwFYDlpuozxi tufIL6DRMbNXVitJ60Rm8s kNqzBl4uSCBtKXZ4FGGrdK JsA6RhdF2i WcMgFOKcNAImQ7JhgAEtSZ lcQ341KLuxRqC3WOZjpxKs Y9DgJKMrbOljZsA1h0B2Nd 2BNl78EW80 XO83yDMwz0L1xBU5D4NxWX HwtpmurjdsrLA2SGNsLKIb bR53Vn5jbRmtNh2bDAHnWH K1SBGzoZXt X0KazZ4mIwRhZHTrTSYrS5 RgvDUcEWtoG500IYckJjF7 WRBiiqNwU2QcUXPghCfnTt Y4t2J3Ll5B QXyodih2A5RuEjxpsCA+PC 71DQDdQE73yMKyxPDyu4fj jTs5MfCxNFWcWIT7zPgtGA xqc8ZiIJAg Y29 (more content not included)... Normal [facility] Dehydroepiandrosterone (DHEA ) LCon 11-02-2023 Dehydroepiandrosterone (DHEA) LC 456 ng/dL Invalid Interpretation Code 43795 [facility] Comment on above: Result Comment: This test was developed and its performance characteristics determined by [facility]. It has not been cleared or approved by the Food and Drug Administration. Performed At: [address] [id number] Gustavo Donis MD Ph:[phone] Performed By: #### 6 [id number], [id number], [id number] ####[facility] (DEFAULT)[address] [place] [address] Miscellaneous Testing LCon 0 11-01-2023 [facility] [place]. Test Result LC COMMENT Invalid Interpretation Code [facility] Comment on above: Result Comment: Test Ordered: [id number] Anti-Mullerian Hormone (AMH) Anti-Mullerian Hormone (AMH) 5.22 ng/mL ES For assays employing antibodies, the possibility exists for interference by heterophile antibodies in the samples.1 1.Aubree Estrella. Interferences in Immunoassays - still a threat. Clin. Chem. 2000; 46: 9017-5193. This test was developed and its performance characteristics determined by [facility]. It has not been cleared or approved by the Food and Drug Administration. Reference Range: Females 20 - 25y: 1.23 - 11.51 Median 4.70 AMH concentrations of >= 1.06 ng/mL is correlated with a better response to ovarian stimulation, produced more retrievable oocytes and higher odds of live according to Kelli et al. Fertility and Sterility. 2010: 94:6885-3666. The current AMH test method correlates with [...] exclude an AMH-secreting ovarian tumor. Performed At: [facility] [id number] Sarah Beal PhD Ph:[phone] Performed At: [facility] [address] [facility] [address] [place] [address] [id number] Wagner Forte MD Ph:[phone] Performed By: #### 1 [id number] #### [facility] (DEFAULT) [address] [place] [address] Dehydroepiandrosterone Sulfa te LCon 10-29-2023 DHEA-Sulfate LC 252.0 ug/dL Invalid Interpretation Code 84.8-378.0 [facility] Comment on above: Result Comment: Perf ormed At: [facility] [id number] Sarah Beal PhD Ph:[phone] Performed By: #### 6 501086, 89838945, [id number], 8084670, 52722582, 02840106, 1702239, 4943874, 12464495 ####[facility] (DEFAULT)[address] [place] [address]997 FSH and LH LCon 10-29-2023 FSH LC 5.9 mIU/mL Invalid Interpretation Code [facility] Comment on above: Result Comment: Adul t Female Range Follicular phase 3.5 - 12.5 Ovulation phase 4.7 - 21.5 Luteal phase 1.7 - 7.7 Postmenopausal 25.8 - 134.8 Performed At: [facility] [id number] Sarah Beal PhD Ph:[phone] Performed By: #### 6 297662, 03516607, 5062808446, 0037416, 45220837, 90385177, 9161806, 8325438, 54832121 ####[facility] (DEFAULT)[address] [place] [address] LH LC 5.5 mIU/mL Invalid Interpretation Code [facility] Comment on above: Result Comment: Adul t Female Range Follicular phase 2.4 - 12.6 Ovulation phase 14.0 - 95.6 Luteal phase 1.0 - 11.4 Postmenopausal 7.7 - 58.5 Performed By: #### 6 655826, 95858193, 9684092567, 5964712, 36286847, 35693324, 1957186, 2068303, 37144867 ####[facility] (DEFAULT)[address] [place] [address]39 .Auto Diff 1on 10-28-2023 Auto [place] % 6 % Normal -12 [facility] Comment on above: Performed By: #### 6 042954, 77278670, 9022950529, 5582176, 48564601, 93842688, 0124982, 5579644, 01771304 ####[facility] (DEFAULT)[address] [place] [address] Baso Abs# 0.1 x10 Normal 0.0-0.2 [facility] Comment on above: Performed By: #### 6 667003, 92719030, 4518758686, 4300310, 16459188, 73955774, 5868954, 2968612, 32898926 ####[facility] (DEFAULT)[address] [place] [address]9701 Basophils/100 WBC (Bld) 0.8 % Normal 0.2-2.0 [facility] Comment on above: Performed By: #### 6 525538, 50030659, 8758641613, 3835829, 77022155, 91829125, 0719765, 9402319, 36466691 ####[facility] (DEFAULT)[address] [place] [address] 97859 Eos Abs# 0.3 x10 Normal 0.0-0.4 [facility] Comment on above: Performed By: #### 6 686986, 46540487, 3060063372, 3432699, 91738675, 98676922, 9676696, 1954583, 47502973 ####[facility] (DEFAULT)[address] [place] [address] 73992 Eosinophils/100 WBC (Bld) 3.9 % Normal 0.9-4.0 [facility] Comment on above: Performed By: #### 6 767080, 12297625, 8694911456, 9822936, 55188134, 45360209, 2068277, 9175482, 94398385 ####[facility] (DEFAULT)[address] [place] [address] 41286 Lymph Abs# 3.2 x10 High 1.3-2.9 [facility] Comment on above: Performed By: #### 6 219634, 77094714, 8416327346, 0905589, 79791238, 95185872, 7004332, 0151585, 28375311 ####[facility] (DEFAULT)[address] [place] [address] 04444 Lymphocytes/100 WBC (Bld) 42 % Normal 14-48 [facility] Comment on above: Performed By: #### 6 436109, 14241920, 2080007495, 1195160, 49309095, 37455376, 9450184, 4188494, 22533048 ####[facility] (DEFAULT)[address] [place] [address] [place] Abs# 0.4 x10 Normal 0.0-0.8 [facility] Comment on above: Performed By: #### 6 661353, 70790123, 9863021299, 2048407, 97933352, 11951097, 9452167, 1411270, 71977281 ####[facility] (DEFAULT)[address] [place] [address] Neut Abs# 3.5 x10 Normal 1.5-9.2 [facility] Comment on above: Performed By: #### 6 259636, 76567479, 6334932957, 7554632, 87263163, 23569262, 8477180, 4482163, 62906029 ####[facility] (DEFAULT)[address] [place] [address] Neutrophils/100 WBC (Bld) 47 % Normal 44-88 [facility] Comment on above: Performed By: #### 6 553770, 52129110, 8969060001, 3510798, 20359335, 85290063, 0973950, 7890072, 02519605 ####[facility] (DEFAULT)[address] [place] [address] CBC w/ Auto Diffon Erythrocyte distribution width (RBC) [Ratio] 13.6 % Normal 11.5-15.0 [facility] Comment on above: Performed By: #### 6 105063, 93746999, 2109769481, 2117190, 16313342, 18084407, 7662163, 6105715, 48136603 ####[facility] (DEFAULT)[address] [place] [address] Hematocrit (Bld) [Volume fraction] 42.1 % High 33.7-40.4 [facility] Comment on above: Performed By: #### 6 554815, 16060252, 2003033312, 2624778, 62616020, 52338602, 3211535, 3112470, 22956647 ####[facility] (DEFAULT)[address] [place], [place] [address] Hemoglobin (Bld) [Mass/Vol] 14.1 g/dL Normal 11.3-15.9 [facility] Comment on above: Performed By: #### 6 576675, 45010812, 0914681165, 2189262, 59651663, 58682773, 0543786, 6113804, 80448895 ####[facility] (DEFAULT)[address] [place] [address] 87183 MCH (RBC) [Entitic mass] 29 pg Normal 24-34 [facility] Comment on above: Performed By: #### 6 227415, 38967393, 0177845151, 1388018, 41687530, 13357232, 3294191, 8018141, 94660403 ####[facility] (DEFAULT)[address] [place] [address] 87474 MCHC (RBC) [Mass/Vol] 34 g/dL Normal 26-37 [facility] Comment on above: Performed By: #### 6 625219, 51564483, 5870744961, 3890453, 89453537, 85036308, 9989060, 6556737, 91702662 ####[facility] (DEFAULT)[address] [place] [address] 19099 MCV (RBC) [Entitic vol] 86 fL Normal 81-100 [facility] Comment on above: Performed By: #### 6 735439, 10854262, 4302949999, 3283268, 73178584, 67276117, 3116314, 9114245, 46158049 ####[facility] (DEFAULT)[address] [place] [address] 55419 Platelet 383 x10 Normal 138-427 [facility] Comment on above: Performed By: #### 6 856553, 98340907, 6487832995, 2368262, 18045465, 50139078, 5251519, 4349037, 12017774 ####[facility] (DEFAULT)[address] [place] [address] 16261 Platelet mean volume (Bld) [Entitic vol] 7.9 fL Normal 6.3-10.2 [facility] Comment on above: Performed By: #### 6 385496, 92233066, 1519087320, 7181397, 01001734, 31311093, 1474476, 8801112, 52421991 ####[facility] (DEFAULT)[address] [place] [address] 95753 RBC 4.91 x10 Normal 3.70-5.30 [facility] Comment on above: Performed By: #### 6 724695, 17402163, 6221749727, 3572600, 50976621, 94548708, 4196236, 6204293, 81104607 ####[facility] (DEFAULT)[address] [place] [address] 02809 WBC 7.4 x10 Normal 3.5-10.5 [facility] Comment on above: Performed By: #### 6 821566, 65351532, 8315736749, 9620070, 47078406, 68156731, 8984938, 3421406, 83989432 ####[facility] (DEFAULT)[address] [place] [address] 37096 Man Diff? Auto Invalid Interpretation Code [facility] Comment on above: Performed By: #### 6 541105, 60232551, 0484369632, 2773669, 81126173, 86445125, 7717499, 3652230, 93421596 ####[facility] (DEFAULT)[address] [place] [address] 59136 Free T4on 10-28-2023 Free T4 [Mass/Vol] 0.73 ng/dL Normal 0.61-1.12 [facility] Comment on above: Performed By: #### 6 656826, 25848805, 0684355397, 5354108, 29923804, 42184360, 2568321, 5377539, 06616676 ####[facility] (DEFAULT)[address] [place] [address] 05555 HgbA1c Standardon 10-28-2023 .Hb 14.4 Invalid Interpretation Code [facility] Comment on above: Performed By: #### 6 499545, 08838581, 5048082552, 9380141, 53197451, 25030927, 4788396, 2676177, 90791503 ####[facility] (DEFAULT)[address] [place] [address] .Hgb A1c 0.48 g/dL Invalid Interpretation Code [facility] Comment on above: Performed By: #### 6 656430, 47933182, 2740222570, 5833919, 79443543, 99006837, 2788727, 5711517, 91472071 ####[facility] (DEFAULT)[address] [place] [address] Glucose [Mass/Vol] 102 mg/dL Invalid Interpretation Code [facility] Comment on above: Performed By: #### 6 901922, 96481044, 1288392633, 4383971, 76583153, 08767233, 5272750, 5160289, 23405588 ####[facility] (DEFAULT)[address] [place] [address] HbA1c (Bld) [Mass fraction] 5.2 % Normal 4.6-6.2 [facility] Comment on above: Performed By: #### 6 950591, 28693759, 1687884966, 9296703, 48181715, 40353368, 8632956, 4005893, 23023936 ####[facility] (DEFAULT)[address] [place], [place] [id number] Miscellaneous Testing LCon 0 10-28-2023 Test Code LC 203765 Invalid Interpretation Code [facility] Comment on above: Performed By: #### 1 [id number] #### [facility] (DEFAULT) [address] [place] [address] Test Name LC anti-mullerian hormone Invalid Interpretation Code [facility] Comment on above: Performed By: #### 1 [id number] #### [facility] (DEFAULT) [address] [place] [address] Provider Orderson 10-28-2023 Provider Orders [id number] [facility]-28-2023 TSH Qn 2.34 m[IU]/L Normal 0.45-5.33 [facility] Comment on above: Performed By: #### 6 [id number], [id number], [id number], [id number], [id number], [id number], [id number] ####[facility] (DEFAULT)[address] [place] [address] hCG Quantitativeon hCG Quantitative <0.6 Normal 0.0-0.6 [facility] Comment on above: Result Comment: Post -Menopausal Reference Range is: 0.1-11.6 mIU/mL Performed By: #### 6 [id number], [id number], [id number], [id number], [id number], [id number], [id number], [id number] ####[facility] (DEFAULT)[address] [place] [address] Outside Recordson 10-18-2023 Outside Records [id number]. [facility] Coding Summaryon 10-06-2023 Coding Summary HTMLBase 64 XuzttjurYHa6qQl+PGhlYW Q+YI8BHWZzW69vmBCooP5o G3TZKUmPPzyqHVZCDTeQXu ColxIhSW8ftIIiZHFz IC8+UW6zKDJxDpmstCHcw2 Q9gMX0Z67oor0wUAqepDC5 WNBhMzObszsoi9wqqXo5YU cuNmluOyBt EKFaeF85YIC2oD86Ys87kU VqlLWlz9fugTs9YfFcZGRi KRP8mFbyJVqke0NcCVCuM4 9xfYLou7I9 VFUymJvacEKnXpFuyUJ7sL 7jVZdexrvbk0suaaqkGvj7 bd43wEVzr8Z6mQQ1D3Vmrg P4XXYhiEBx JlbraAQOpV7ofwgwq7bkyl pnAdHhZRJnEIh4VPf7IBVs hHxuYoMeIV01DBN6LVCxpm AuK8BlPCGo hJstAdS6f0M7Ih0KI2LSWc ygT8YCPQSPEFwawYY+PC90 lm73L5KxRoppSau8CXRiUJ E4tNV0eG4f KBZxAUhva5Z7yRW1A1Jzug Khqe2lp1yzSGFvQEtlG65z zOCkz8F4RJPweGL4TGCcoI dmGiYixT86 Oyc+JSVrgUleu7YnWiqru3 nvu3iucLw9PskqUAZnrwLp fWqiOSR8s9IlIe9lTFZzcP N8nHC2iC4y UxQzHnU2AOifD577YtJapP IkIwjwQ14xK7AgeCE+PHRy Seb7LFMlaCgnWM7dJ1DjXS RpbmctbGVm aTghXU5sPYMqzphhDUDeyU 8yWRApY3r8IcCrQdB8VAsj S7WjUMCutguePa72mX1uJz RxAwU7CPef D8RgxdV4VCQqoLMeIPmfJY M0X56pl5U9GQVhRVGrLVT8 vWF9sD4qcVdwretcqXHfjQ sgdmVydGlj ASfoBEetM655FXSlsYftIp NvZGluZyBEYXRlOiAgMDIv MDEvMjAyNDwvdGQ+PHRkIH Q0rFkzWBCf tDNlBVuiCn1epOssfZnkKJ 3lCBHgecuhIPHhaF0eLPUk wAWawSgiDW1bFHPcqyctv2 38BzXrDIT9 WYLsaJCmM4AfvS5wZqFqAC OqJZKrA7QpdJNaMHzyK238 KBzeOfA4IPQswcBxE5YhYE FsaWduOiB0 d0D4Vi1Be3KqeobsT7JswM LzXhBcYxirQWk2Q1JsHoll dHI+UV19WLPyAQ26TPz9MA T6vMuqNVrv YRYbV9GcoO2dJqMvZAXeDQ RkOyc+PHRhYmxlIHdpZHRo UFdcZZTdWnFzfUnqKG6tUc 9yZGVyLWNv lPwblAFbVpZny7ygOFEsCZ hoMJ0peUbmS5HdyJI7RFEs g8h5Se13Z36jK0YiiEQ+PG WikNN0eBI8 dJ8jTdByFmF9PAylF827Wu FobTVsYdldw4hol7jmmNg7 IzC1EDBznuRhvGknEKZ3o2 FeGp15X38f IHdpZHRoPSIxNSUiIHZhbG alzb6hjY5bKq4+PGNvbCB3 xDE8sP4rQsNvGyX2PSnkV8 49InRvcCIv Vngqy8all5gfsWm4CoUhSW MacjVpwVmgRYT0n0VdKr86 S7AfiBxyf8MaAnl2ds76nS Exw3P6kSV3 M1AsZRJlmhreaBHfnVcxAC 8pCWMkpsqnBJJjmS5nRWMf P6i0XvCoJaX0LQioP8Mbti N7QQSppLCu GOMcbGAQoU1nyenth3kfyg zjKuHlDTWxOUf6GJf8YVTp rLjvApLgEIQ5ZyL5OZX2vE PpwQ3lzEfl vbdxhQ5jTmk+HIF7xWRpjA NCNU3xFyndzKN+PHRkIHN0 oRuwGCreHKKbqQ2oNFDgE2 e0LoUkUyH5 GUghI3GfazT5OOMjtKXsHO IgkLWOyQ7fpwqjx2faxgyk WiAgUQJiIUz8NNf8HNQuhS duOiBsZWZ0 BzQ6QVA8dAJpfE5nnOgjou aalO9kApa+QmlydGggRGF0 KGt9S2GmLwr4KBKrsQplWE 0ncGFkZGlu Hh7gnNevwNhoMR7yXEYcnf ndn034PgPep5spNCCjxDIh MKqjDWJ6I39lb9B7ZRQuWV NjLLW1bGQ0 zD8xgEkrbgtlyKKydNhzfq IckEmzFUjcJTlpD745DIZp rHsqIfZlZRm6Q0GmIyx0HF FqkUrfJX1n cCSqNXmnEr8dvYwqbWyrIU 6qHIOjsinlg875ZkKvb6sw SQNxkSEbXZgjPCX0Q25sk7 O7YALjPXGg RIL9cZY8uQ8luSsaskrwuH VmdDsgdmVydGljYWwtYWxp V831OZXvdPidKjBlwTt1S8 JyVer5XLRx sXzgRL7gmOOkAGtnEt1zpK auyIffZY6dJDFeslycq929 AfWkr2ogDTKbsHQyJTiqXB I2B37vm4A4 PVYyPFLwOLZ3jIF4kD4peB lnbjogbGVmdDsgdmVydGlj DBtjAWjjG400RYUsaTuxNx BhdGllbnQg CUryGZl6H0OeQdhbsQM+PC 80MZFrKN77yLRfjLHrt8kn yPn6IeSkLGPrETY9vHxyQQ nmz2JlPHAn Y08mjBOut9N1DJThhSldsL HoRfBdtIQ5vH0qHOmarnrc g4nnrbbaJollk0hlmi46hC 50X54wXTzd ZHRoPSIzMCUiIHZhbGlnbj 7qlV4qYq1+GMZrjYI5pXU5 cX5bHMEkRiB8ZOgsR247Zm RvcCIvPjxj b7ghh5omaBj1CkX5ZXAhqm LadKkhQFP1q9KkHc37W55p IHdpZHRoPSIyMCUiIHZhbG dzoe4voG9p Ii8+EKAhvAL0wEA2aQ4eNj AxYaB7AKfaX173EoUdkKWm RwltA79hS9JloKO+PHRyPj h4IVLiqXwm UV2deONzOPbdXt7mLMP9Wz YwPuVpARaeW0IsCLZddtuh hiuofYS4PUGnPFRroH42Nd 9udDogMTBw wUMLkH6xtjhkw8qxpwbxRn CfMEAvTPc8ZOc1GWDbpNox RcCwCSG1BxU8JSU9kEGceA 1hbGlnbjog bL5nW8DaGPRuaceyRj91qS 5lEdXxCmT5CKjwWxq+Q1JB C3NGVtFqRPSVIAPBDqDjKQ lDSEVMTEU8 L6ClWeo7TNLlgPkwDJ1duY BgNSybNs0avFgkbYqvUF6l PIHbarkwSFKqvG7cWMEvoS McoXnlZI8y LWHwxgjry534PxObQYV2PH ZjdTQnG9CixW6vYuEaJMUn UVVrW1SleEVmKImmU933SW trRsE3SFRv ccYpE5GbVWZfuLzmBkP4q8 J0Lo9cQs2vJX1zHFy3YQ07 SW14pSWzl0H0kZC5N2WpVX Rpbmctcmln rIR4OJOyVYLwfH70mNQfZX voUk4iy2O1x671GJUdVHAd mS33Pw6ugQrgSEMyxQVFrO 5qdlegs5fh hkviQcHhLMPsLFy4HNg4LU FzuQqzPaXrRFC8JgP8BLD5 nVByrJ8xjFfmwijldI6oEf c+MjUgWWVh czH0V5GiFcu6FTEzvGhcRD 5ceCXhQFriZp4alDeovBdj QP4uHQHpxtcqKFMmhC4eNY JvdHRvbTog GK7dOWUrccdnn885KxQbKQ T5ZUWawNZrC9DhpP7ySwZw OTGkHSZnY3LbxLAkAIbqG3 56ENiaSlQ2 EILfhiPnL3ZuLWZbsJmmGi B5z5G0Vo0ADR1XVOP3K0Sg Vds1NSCeqZluEV4mlNGsCQ aqGc1xtLja qGcmVE4vPTPcfsutOXPmiX 3qFAArlMIbgWcaQX3tJKJl hkevf315OeYqETD7BSXjmN WbB2UhoD1j VjXcLFTgCHCyM1DjoCKxUC vfX872NFklTbO1TMOwesUp D6CbNDTaqScsJcX2c2O0Nj 5PUDwvdGQ+ KC12yn55D2NgOgibNxb9FK MoWYT0rDO3hO6fYLPxCSub s1O2uSP2W3YhiiMjkv3kz6 xsYXBzZTog N76teJIui6I8YJNppQS3KS AazPftCaKeaO15Qtl+PGNv oDhyz4JuJrwcu0woy3ncfF r5SpDuJASd wlKfyGsuAMS5f9VxWz07N5 9sIHdpZHRoPSIzMCUiIHZh nJtjfu5nrO1lDd1+PGNvbC D9xDW1cT0t NyJtPyF6VOvaE653CrRnjE WwEuzbx2wex0mblOh0TcCk SYUpdxCvfEubINI7p8HmZl 27L0KfyMoi r2NmXyo6ui44iVSbo4U9iR C3Z1OpPTFdsfdxjTYfjEmq FN4mXFKhinvuQSVtxJ1yJT ZjR4r7DgVz AwG1EFnpR4EssqM3NDOveV FhFTKjkQAQyC5wkpjmo2uk kqnoWlPwCVLsJMh7QCd7GJ FsaWduOiBs AQU3BpW4UKC0uVMxmG6xzZ qryutdbD5oIuj+ZWz7m4ir cFGzXQ2xrMH9GL26DN06uQ Uyg6S7cDK9 D9EuYENrrqdjnjrcaQY3SZ PrAFFymS06Uf9uoXmvIv0g SINzOCC1VZFegDFrK4SonX 9yOiAjMDAw GYCrB5UtsFRoOOztT025TA ylXyS0QDCdkcBvR5CuTFVz gRkwNuA1g6H3Sf4YTF35DQ 88CA16yKCi m8J9tYR6T3PmDXCkazmqwk wjkJQ6TVKfUCBmcU22Zo6c vPyyZc9qPUCrIIO0ADOobC VeV2GcxX9k KaAuMRXuZKSpN7WdgEOjMK hoP814LVryQrW3IWRclcZf O1IpGNErjFxiZuS4j8B8Up 0GEz19MR08 EZ15eKCaf9O9lHK4M2AxNI UbcosatupffBJ4CRZgSPEp lV63Lk5ghHxqPt3wSLQaAL W0QFAfkYUj S2MsuI9oUnOyYTWmOFQwX1 FfaOUbGKxpT807GJdeIgU6 GJWuooDkV3ByMOHvoTflQs N8r0I2Vn3J KTyrhvt0V3JcQiltiLV+PC 62FIDcKK74oJPkaGTgp1wu hRa0PeKzULZnWZX5pMhbXP rpj8TiPVAb Y29 (more content not included)... Normal [facility] ED Clinical Summaryon 2023 ED Clinical Summary [facility] ? Urgent Care [address] [place], [place] [address] Clinical Summary PERSON INFORMATION Name: BONNIE ASTUDILLO Age: 23 Years Sex: FEMALE : 2000 MRN: Acct#: Visit Reason: Dental pain; UC - Dental Pain; DENTAL PAIN Arrival: 09/30/2023 14:27:41 Discharge: 09/30/2023 15:02:00 LOS: 000 00:35 Check In: 09/30/2023 14:27:41 Checkout: 09/30/2023 15:02:00 Address: [address] [facility] [address] PCP: Anthony Gomez MD PROVIDER INFORMATION Provider Role Assigned Unassigned Alysha Jay [employer] Nurse 09/30/2023 14:35:57 [facility] ED PA [...] Pain Follow-Up: With: Address: When: Anthony Gomez [address] [place] [address] [phone] Business (1) Within 3 to 5 days [...] saltwater gargles. You may follow up with [facility] dental clinic at . You may follow up with [facility] [phone] ext: [phone]. You may also follow up with [facility] dental clinic at [phone]. You may call [facility] in [facility] at [phone]. For adult dental emergencies please call [phone]. Return for worsening symptoms or concerns, spiking high fevers, redness going up or down side of face, swollen eyes, or any further questions. DIAGNOSIS: Dental infection; Elevated blood pressure reading without diagnosis of hypertension Patient Understands: Yes - Patient/family/caregiv er verbalizes understanding of instructions given Comment: Normal [facility] ED Patient Summaryon 024 ED Patient Summary [facility] ? Urgent Care [address] [place] [address] PATIENT DISCHARGE INSTRUCTIONS Patient Information Name: BONNIE ASTUDILLO Age: 23 Years Date of : 2000 Reason For Visit: Dental pain; UC - Dental Pain; DENTAL PAIN Arrival Time: 09/30/2023 14:27:41 Primary Care Physician: Anthony Gomez MD Attending Physician: Comment: Patient Education With: Address: When: Anthony Gomez [address] [place] [address] [phone] Business (1) Within 3 to 5 days [...] saltwater gargles. You may follow up with [facility] dental clinic at . You may follow up with [facility] [phone] ext: [phone]. You may also follow up with [facility] dental clinic at [phone]. You may call [facility] in [facility] at [phone]. For adult dental emergencies please call [phone]. Return for worsening symptoms or concerns, spiking [...] pressure or (more content not included)... Normal [facility] Urgent Care Note- Provideron 09-30-2023 [...] has sign (more content not included)... Normal [facility] Care Recordon 024 Urgent Care Record [facility] ? Urgent Care [address] [place] [address] PATIENT DISCHARGE INSTRUCTIONS Patient Information Name: BONNIE ASTUDILLO Age: 23 Years Date of : 2000 Reason For Visit: Dental pain; UC - Dental Pain; DENTAL PAIN Arrival Time: 09/30/2023 14:27:41 Primary Care Physician: Anthony Gomez MD Attending Physician: Comment: Visit Diagnosis: Diagnoses This Visit Dental infection (K04.7) Dental pain ([id number]) Elevated blood pressure reading without diagnosis of hypertension (R03.0) UC - Dental Pain ([id number]) If you received any narcotics, sedation, or [...] legal documents With: Address: When: Anthony Gomez [address] [place], [place] [id number] Business (1) Within 3 to 5 days [...] saltwater gargles. You may follow up with [facility] dental clinic at . You may follow up with [facility] [phone] ext: [phone]. You may also follow up with [facility] dental clinic at [phone]. You may call [facility] in [facility] at [phone]. For adult dental emergencies please call [phone]. Return for worsening symptoms or concerns, spiking high fevers, redness going up or down side of face, swollen eyes, or any further questions. Medication Information: The exam and treatment you received today in the [facility] were for an urgent problem and are not intended as complete care. It is important for you to follow up with a doctor, nurse practitioner, or physician?s quality assurance assistant for ongoing care. If your symptoms [...] so we can reach you if necessary. [facility] has provided you with a complete list of medications post discharge. Please inform your laborer/provider of your visit and for further instruction on these medications. Any specific questions regarding your chronic medications and dosages should be discussed with your primary care physician(s) and/or pharmacist. New Medications [facility] [id number], [address] [place], [place] [id number], [phone] amoxicillin (amoxicillin 500 mg oral tablet) 1 [...] chakraborty o (more content not included)... Normal [facility] Mkiael 01-04-2022 L -- ---- Specimen: [id number] Received: 01/05/22 Status: QUOC Garber Num: [id number] Spec Type: Surgical Subm Dr: Rodney Lema MD Tissues: A Skin-Other than Cyst, tag, debridement or plastic repair (SCALP) Procedures: HE Stain/5, Gross/Micro L4 ---- Patient Age/Sex Location Account Attending Physician ---- Bonnie Astudillo / CONNOR [id number] Rodney Lema MD ---- SPEC NUM: [id number] RECD: 01/05/22 STATUS: QUOC GARBER NUM: [id number] JANE: 01/04/22 [facility] DR: Rodney Lema MD ENTERED: 01/05/22 [facility] DR: Dea,Amy SPEC TYPE: Surgical DEPT: MAG [...] 10% Neutral Buffered Formalin (ESTELA/YJ) ---- Specimen: [id number] Received: 01/05/22 Status: QUOC Garber Num: [id number] Spec Type: Surgical Subm Dr: Rodney Lema MD Tissues: A Skin-Other than Cyst, tag, debridement or plastic repair (SCALP) Procedures: HE Stain/5, Gross/Micro L4 ---- Patient: Bonnie Astudillo [id number] (Continued) ---- Specimen: [id number] Received: 01/05/22 (Continued) Signed (signature on file) Debora Cintron MD 01/07/22 0930 ---- Specimen: [id number] Received: 01/05/22 Status: QUOC Garber Num: [id number] Spec Type: Surgical Subm Dr: Rodney Lema MD Tissues: A Skin-Other than Cyst, tag, debridement or plastic repair (SCALP) Procedures: JASWINDER Ellison/Delta, Gross/Brooke L4 ---- Patient: Bonnie Astudillo [id number] (Continued) ---- Specimen: [id number] Received: 01/05/22 (Continued) Microscopic Description Six glass slides with H E stained material and two IHC stained slides have been examined. The microscopic findings support the above pathologic diagnosis. ANALYTE SPECIFIC REAGENT (ASR) DISCLAIMER: The use of one or more reagents in the above tests is regulated as an analyte specific reagent (ASR). The performance characteristics were determined by the [facility] of [facility]. Immunohistochemistry assays have not been validated on decalcified tissue. Results should be interpreted with caution given the possibility of false negative results on decalcified specimens. They have not been cleared by the US Food and Drug Administration. The FDA has determined that such clearance or approval is not necessary. CPT Codes 96044, 80688, 59679 ---- ---- Specimen: [id number] Received: 01/05/22 Status: QUOC Garber Num: [id number] Spec Type: Surgical Subm Dr: Rodney Lema MD Tissues: A Skin-Other than Cyst, tag, debridement or plastic repair (SCALP) Procedures: HE Stain/5, Gross/Micro L4 ---- Patient: Bonnie Astudillo [id number] (Continued) ---- Signed (signature on file) Debora Muller (more content not included)... [facility] Cytology Cervical or vaginal smear or scraping studyon 12-26-2019 [facility] Vital Signs Date Time Vital Sign Value Performing Clinician Faci lity 08-08-2024 11:09-0500 Body mass index (BMI) [Ratio] 39.37 kg/m2 MENA SOCIAL Work Phone: [facility] 08-08-2024 11:09-0500 Body weight 114.03 kg MENA SOCIAL Work Phone: [facility] 08-08-2024 11:09-0500 Diastolic blood pressure 72 mm[Hg] MENA SOCIAL Work Phone: [facility] 08-08-2024 11:09-0500 Systolic blood pressure 120 mm[Hg] MENA SOCIAL Work Phone: [facility] 07-10-2024 10:45-0500 Body mass index (BMI) [Ratio] 38.37 kg/m2 MENA [employer] Work Phone: [facility] 07-10-2024 10:45-0500 Body weight 111.13 kg MENA SOCIAL Work Phone: [facility] 07-10-2024 10:45-0500 Diastolic blood pressure 74 mm[Hg] MENA SOCIAL Work Phone: [facility] 07-10-2024 10:45-0500 Systolic blood pressure 118 mm[Hg] Jackie Celeste DO Work Phone: [facility] 06-07-2024 13:09-0400 Body mass index (BMI) [Ratio] 38.53 kg/m2 Nom Nurse [facility] 06-07-2024 13:09-0400 Body weight 111.58 kg [facility] Nurse [facility] 06-07-2024 13:09-0400 Diastolic blood pressure 72 mm[Hg] [facility] Nurse [facility] 06-07-2024 13:09-0400 Systolic blood pressure 116 mm[Hg] [facility] Nurse [facility] 10-06-2023 08:53-0500 Body height 170.2 cm Jackie Celeste DO Work Phone: [facility] 10-06-2023 08:53-0500 Body mass index (BMI) [Ratio] 38.28 kg/m2 Jackie Celeste DO Work Phone: [facility] 10-06-2023 08:53-0500 Body weight 110.86 kg Jackie Celeste DO Work Phone: [facility] 10-06-2023 08:53-0500 Diastolic blood pressure 72 mm[Hg] Jackie Celeste DO Work Phone: [facility] 10-06-2023 08:53-0500 Systolic blood pressure 120 mm[Hg] Jackie Celeste DO Work Phone: [facility] Healthcare Encounters Encounter Date Encounter Type Care Provider Facility Start: 08-08-2024 End: 08-08-2024 Bamboo flowsheet Jackie Celeste DO Work Phone: [facility] Start: 08-08-2024 End: 08-08-2024 Bamboo flowsheet Jackie Celeste DO Work Phone: [facility] Start: 08-08-2024 End: 08-08-2024 Office outpatient visit 15 minutes Jackie Celeste DO Work Phone: [facility] Comment on above: Well woman exam with routine gynecological exam; Second trimester ; 17 weeks gestation of ; Vaginal discharge; STD exposure; Screening, , for anatomic survey; Elevated glucose tolerance test Start: 08-08-2024 End: 08-08-2024 Patient encounter procedure Jackie Celeste DO Work Phone: [facility] Work Phone: Start: 07-31-2024 End: 07-31-2024 Clinisync Result Encounter Jackie Celeste DO Work Phone: [facility] External Department Unsolicited Start: 07-31-2024 End: 07-31-2024 Clinisync Result Encounter Jackie Celeste DO Work Phone: [facility] External Department Unsolicited Start: 07-10-2024 End: 07-10-2024 Bamboo flowsheet Jackie Celeste DO Work Phone: [facility] Start: 07-10-2024 End: 07-10-2024 Bamboo flowsheet Jackie Celeste DO Work Phone: [facility] Start: 07-10-2024 End: 07-10-2024 Office outpatient visit 15 minutes Jackie Celeste DO Work Phone: [facility] OB Comment on above: Second trimester pre gnancy; 13 weeks gestation of ; Nausea and vomiting in ; Diabetes mellitus screening Start: 07-10-2024 End: 07-10-2024 ambulatory JACKIE CELESTE Not Available Start: 07-05-2024 End: 07-05-2024 ambulatory [facility] Facility:[facility] Start: 07-04-2024 End: 07-04-2024 Clinisync Result Encounter Jackie Celeste DO Work Phone: [facility] External Department Unsolicited Start: 07-04-2024 End: 07-04-2024 Clinisync Result Encounter Jackie Celeste DO Work Phone: [facility] External Department Unsolicited Start: 06-07-2024 End: 06-07-2024 ambulatory [facility] Nurse [facility] Comment on above: GA: 8w6d Start: 06-01-2024 End: 06-01-2024 ambulatory Kulwant Bodie Facility:[facility] Start: 05-28-2024 End: 05-28-2024 Emergency department patient visit Evonne Cheung Facility:[facility] Start: 05-28-2024 End: 05-28-2024 ambulatory Anthony Santo Jason Facility:[facility] Start: 05-08-2024 End: 05-08-2024 ambulatory JACKIE CELESTE Not Available Start: 04-24-2024 End: 04-24-2024 Patient encounter procedure Kenya Richter DDS Work Phone: [facility] Comment on above: Abnormal tooth erupt ion (Primary Dx); Impacted third molar tooth Start: 04-24-2024 ambulatory KENYA RICHTER Facili ty:[facility] Start: 03-14-2024 End: 03-14-2024 ambulatory JACKIE R [facility] Facility:[facility] Start: 02-14-2024 End: 02-14-2024 ambulatory JACKIE R [facility] Facility:[facility] Start: 01-17-2024 End: 01-17-2024 ambulatory JACKIE R [facility] Facility:[facility] Start: 12-16-2023 End: 12-16-2023 ambulatory Anthony Santo Jason Facility:[facility] Start: 11-19-2023 End: 11-19-2023 Emergency department patient visit Kulwant Jason Facility:[facility] Start: 11-03-2023 End: 11-03-2023 ambulatory JACKIE CELESTE Not Available Start: 10-28-2023 End: 10-28-2023 ambulatory Kulwant Jason Facility:[facility] Start: 10-06-2023 End: 10-06-2023 Office outpatient new 20 minutes Jackie Celeste DO Work Phone: [facility] Comment on above: Irregular periods/me nstrual cycles; PCOS (polycystic ovarian syndrome); Insulin resistance Start: 10-06-2023 End: 10-06-2023 ambulatory JCAKIE CELESTE Not Available Start: 09-30-2023 End: 09-30-2023 ambulatory Anthony Gomez Facility:[facility] Procedures Date Procedure Procedure Detail [...] gestation of Expected: 08/08/2024 (Approximate), Expires: 02/06/2025 [facility] Healthcare Comment on above: Expected: 08/08/2024 (Approximate), Expires: 02/06/2025 Start: 08-08-2024 End: 08-08-2025 Measurement of glucose 3 hours after glucose challenge for glucose tolerance test Glucose tolerance, 3 hours Lab Routine Elevated glucose tolerance test Expected: 08/08/2024 (Approximate), Expires: 08/08/2025 [facility] Healthcare Comment on above: Expected: 08/08/2024 (Approximate), [...] mellitus screening Expected: 07/10/2024 (Approximate), Expires: 07/10/2025 [facility] Healthcare Work Phone: Comment on above: Expected: 07/10/2024 (Approximate), Expires: 07/10/2025 Start: 07-10-2024 End: 07-10-2024 Patient encounter procedure [facility] Comment on above: Arrived Start: 07-04-2024 End: 07-04-2024 Patient encounter procedure 07/04/2024 3:00 PM EDT Office Visit [facility] [address] [place], [place] [id number] Kenya Richter, DDS [address] [place] [id number] [facility] Start: 06-07-2024 End: 06-07-2025 ABO/Rh [...] EST Office Visit [facility] [address] [id number] Jackie Alonso DO [address] [place], [place] [id number] [facility] Start: 10-17-2023 End: 10-17-2023 Professional / ancillary services management 10/17/2023 8:30 AM EST Ancillary Procedure [facility] [address] [id number] [facility] Start: 05-06-2023 COVID-19 Vaccine ( season) COVID-19 Vaccine ( season) [facility] Start: 2019 Screening for malign ant neoplasm of cervix Pap Smear [facility] Start: 2017 Hepatitis A (HAV) Vaccine (optional start 19+ years) Hepatitis A (HAV) Vaccine (optional start 19+ years) [facility] Start: 2017 Hepatitis B vaccination Hepati tis B (HBV) Vaccine (1 of 3 - 19+ 3-dose series) [facility] Start: 2016 Hepatitis C screening Hepatitis C An tibody [facility] Start: 2016 Tetanus + diphtheria + acellular pertussis vaccine (product) Tdap Booster [facility] Start: 2013 Vaccination for volodymyr n papillomavirus HPV Vaccine (1 - 3-dose series) [facility] Antimullerian hormon e (AMH) Antimullerian hormone (AMH) Lab Routine Irregular periods/menstrual cycles Ordered: 10/06/2023 [facility] Comment on above: Ordered: 10/06/2023 Bacteria identified in Urine by Culture Urine culture Microbiology Routine Missed menses Ordered: 06/07/2024 [facility] Comment on above: Ordered: 06/07/2024 CBC W Auto Different ial panel - Blood CBC and differential Lab Routine PCOS (polycystic ovarian syndrome) Ordered: 10/06/2023 [facility] Comment on above: Ordered: 10/06/2023 CBC W Auto Different ial panel - Blood CBC and differential Lab Routine Missed menses , unspecified gestational age Ordered: 06/07/2024 [facility] Comment on above: Ordered: 06/07/2024 CHLAMYDIA TRACHOMATI S (GENITO/STI) CHLAMYDIA TRACHOMATIS (GENITO/STI) Lab Routine STD exposure Ordered: 08/08/2024 [facility] Comment on above: Ordered: 08/08/2024 Cytology Cervical or vaginal smear or scraping study Pap Smear Pathology and Cytology Routine Well woman exam with routine gynecological exam Ordered: 08/08/2024 [facility] Comment on above: Ordered: 08/08/2024 DHEA DHEA Lab Routine PCOS (polycystic ovarian syndrome) Ordered: 10/06/2023 [facility] Comment on above: Ordered: 10/06/2023 DHEA-sulfate DHEA-sulfate Lab Routine PCOS (polycystic ovarian syndrome) Ordered: 10/06/2023 [facility] Comment on above: Ordered: 10/06/2023 Follicle stimulating hormone Follicle stimulating hormone Lab Routine PCOS (polycystic ovarian syndrome) Ordered: 10/06/2023 [facility] Comment on above: Ordered: 10/06/2023 hCG, quantitative, hCG, quantitative, Lab Routine PCOS (polycystic ovarian syndrome) Ordered: 10/06/2023 [facility] Work Phone: Comment on above: Ordered: 10/06/2023 Hemoglobin A1c measurement Hemoglobin A1c Lab Routine Irregular periods/menstrual cycles Ordered: 10/06/2023 [facility] Comment on above: Ordered: 10/06/2023 Hemoglobin A1c/Hemoglobin.total in Blood Hemoglobin A1c Lab Routine Missed menses , unspecified gestational age Ordered: 06/07/2024 [facility] Comment on above: Ordered: 06/07/2024 Hepatitis B virus surface Ag [Presence] in Serum or Plasma by Immunoassay Hepatitis B surface antigen Lab Routine Missed menses , unspecified gestational age Ordered: 06/07/2024 [facility] Comment on above: Ordered: 06/07/2024 Hepatitis C virus Ab [Presence] in Serum or Plasma by Immunoassay Hepatitis C antibody Lab Routine Missed menses , unspecified gestational age Ordered: 06/07/2024 [facility] Comment on above: Ordered: 06/07/2024 HIV-1/HIV-2 antigen/antibody combination immunoassay HIV-1 and HIV-2 antibodies Lab Routine Missed menses , unspecified gestational age Ordered: 06/07/2024 [facility] Comment on above: Ordered: 06/07/2024 Luteinizing hormone Luteinizing hormone Lab Routine PCOS (polycystic ovarian syndrome) Ordered: 10/06/2023 [facility] Comment on above: Ordered: 10/06/2023 Neisseria gonorrhoea e DNA [Presence] in Unspecified specimen by ISHA with probe detection Neisseria gonorrhea DNA probe, direct Lab Routine STD exposure Ordered: 08/08/2024 [facility] Comment on above: Ordered: 08/08/2024 Reagin Ab [Presence] in Serum by RPR RPR Lab Routine Missed menses , unspecified gestational age Ordered: 06/07/2024 [facility] Comment on above: Ordered: 06/07/2024 Rubella antibody, IgG Rubella an tibody, IgG Lab Routine Missed menses , unspecified gestational age Ordered: 06/07/2024 [facility] Comment on above: Ordered: 06/07/2024 SURESWAB(R) ADVANCED VAGINITIS PLUS, TMA SURESWAB(R) ADVANCED VAGINITIS PLUS, TMA Pathology and Cytology Routine Vaginal discharge Ordered: 08/08/2024 [facility] Work Phone: Comment on above: Ordered: 08/08/2024 Thyrotropin [Units/volume] in Serum or Plasma TSH Lab Routine PCOS (polycystic ovarian syndrome) Ordered: 10/06/2023 [facility] [employer] Comment on above: Ordered: 10/06/2023 Thyroxine (T4) free [Mass/volume] in Serum or Plasma T4, free Lab Routine PCOS (polycystic ovarian syndrome) Ordered: 10/06/2023 [facility] Comment on above: Ordered: 10/06/2023 US for US PELVIS-TRANS VAG IF INDICATED Imaging Routine PCOS (polycystic ovarian syndrome) Ordered: 10/06/2023 [facility] Comment on above: Ordered: 10/06/2023 Payers Date Payer Category Payer Medicaid [id number] 2022 Medicaid [id number] 1998 Unknown [id number] 2.16. [id number] 1998 Unknown [id number] 2.16.84 0.1.356669.3.579.2.9 1998 Unknown [id number] 2.16.84 0.1.277174.3.579.2.9 1998 Unknown [id number] 2.16.84 0.1.892624.3.579.2.9 1998 Unknown [id number] 2.16.84 0.1.498122.3.579.2.1258 1998 Unknown [id number] 2.16.84 0.1.351077.3.579.2.9 1998 Unknown [id number] 2.16.8 40.1.533591.3.579.2. 1998 Unknown [id number] 2.16.8 40.1.122475.3.579.2.8 1998 Unknown [id number] 2.16.8 40.1.983635.3.579.2.8 1998 Unknown [id number] 2.16.8 40.1.318934.3.579.2.718 1998 Unknown [id number] 2.16.8 40.1.302542.3.579.2.718 1998 Unknown [id number] 2.16.8 40.1.567716.3.579.2.718 1998 Unknown [id number] 2.16.8 40.1.768742.3.579.2.8 1998 Unknown [id number] 2.16.8 40.1.152618.3.579.2.718 1998 Unknown [id number] 2.16.8 40.1.891475.3.579.2.718 1998 Unknown [id number] 2.16.8 40.1.169146.3.579.2.718 1998 Unknown [id number] 2.16.8 40.1.467851.3.579.2.718 Social History Date Type Detail Facility Start: [...] [facility] stat [facility] Tobacco smoking consumption unknown [facility] Start: 05-08-2024 [...] Documented by NITISH Rojas on behalf of: Jackie Alonso DO documented in this encounter [facility] 07-10-2024 History of Presen t illness Narrative [...] nursing note reviewed. Exam conducted with a boiler tube reamer present. Vitals: Estimated body mass index is [...] or undercooked meat, and stay away from [facility]. Patient has been consulted regarding any further [...] Jackie Alonso DO documented in this encounter [facility] 07-05-2024 Note Patient Education Ma terials Follows:and [...] and use condoms. General instructions ? Take ynci-psr-wtlytxo and prescription medicines only as told by [...] provider. Document Revised: 02/19/2021 Document Reviewed: 02/19/2021 [employer] Patient Education ? 2023 [employer] [facility] 06-07-2024 History of Presen t [...] Comments Last pap smear 12/26/19 [facility] w/Dr. Leblanc Current Medications: has a current medication list [...] both done at the same time at [facility] at 10 weeks . Pt desires zofran due to nausea in this . Follow Up: Patient is to have labs drawn at directed and return to office for initial OB appointment with provider. Patient may call office as needed with any concerns or questions. Nurse Visit Completed by: Bernadette Reeder MA documented in this encounter [facility] 05-28-2024 Note Education Materials Orthopedics Muscle Strain [...] not too tight. General instructions ? Take ygzf-udt-mxnfrzi and prescription medicines only as told by [...] provider. Document Revised: 11/09/2021 Document Reviewed: 11/09/2021 [employer] Patient Education ? 2023 [employer] Sciatica Sciatica is pain, weakness, tingling, [...] (pelvis). ? . (more content not included)... [facility] 05-28-2024 Note Patient Education Materials Foll ows: [facility] 04-24-2024 History of Presen t illness Narrative Images from the original note were not included. documented in this encounter [facility] 11-19-2023 Note Education Materials Caregiving Sterile [...] and water are not available, use hand broadloom weaver. ? Change your dressing as told by [...] these instructions at home: Medicines ? Take eisf-epl-mhymube and prescription medicines only as told by [...] C. This informatio (more content not included)... [facility] 10-06-2023 History of Presen t [...] nursing note reviewed. Exam conducted with a boiler tube reamer present. Vitals: Estimated body mass index is [...] and medication was sent to [facility] in [place]. Documented by Rose Latham LPN on behalf of: Jackie Alonso DO documented in this encounter [facility] 09-30-2023 Note Patient Education Ma terials Follows: [...] wine (148 mL (more content not included)... [facility] Evaluation note Diagnosis Irregular periods/menstrual [...] episode of care documented in this encounter [facility] HealthcareEvaluation note* Diagnosis Second trimester state, [...] glucose tolerance test documented in this encounter [facility] Healthcare Summary Purpose Family History No [...] third molar tooth Kenya Richter, DDS [address] [place] [address] Referral ID Status Reason Start Date Expiration Date V isits Requested Visits Authorized [id number] Pending Review 04/24/2024 04/24/2025 1 1 Scheduling [...] your procedure, you will be contacted with [id number] costs or next steps. All self-pay payments [...] the procedure: You also MUST have a driver's license examiner/escort >18yrs old present to take you home [...] section and content) DATE CREATED AUTHOR 01/08/2022 [facility] DATE CREATED AUTHOR AUTHOR'S ORGANIZ ATION 05/03/2024 [employer] DATE CREATED AUTHOR AUTHOR'S ORGANIZ ATION 07/11/2024 [facility] EPIC DATE CREATED AUTHOR AUTHOR'S ORGANIZ ATION 07/17/2024 [facility] Reason for Visit (unrecogniz ed section and content) Reason Comments Discuss cycles Reason Comments Amenorrhea Reason Comments Routine Visit Reason Comments Well Women Visit Routine Visit STI Screening Care Teams (unrecognized sec tion and content) Hall Monitor Relationship Specialty Start Date End Date Anthony Gomez MD [address] [place] [id number] PCP - General Pediatrics 10/06/23 Hall Monitor Relationship Specialty Start Date End Date Anthony Gomez MD [address] [place] [id number] PCP - General Pediatrics 10/06/23 Hall Monitor Relationship Specialty Start Date End Date Anthony Gomez MD [address] [place] [id number] PCP - General Pediatrics 10/06/23 Hall Monitor Relationship Specialty Start Date End Date Anthony Gomez MD [address] [place] [id number] PCP - General Pediatrics 10/06/23 Hall Monitor Relationship Specialty Start Date End Date Anthony Gomez MD [address] [place] [id number] PCP - General Pediatrics 10/06/23 Hall Monitor Relationship Specialty Start Date End Date Anthony Gomez MD [address] [place] [id number] PCP - General Pediatrics 10/06/23 FOR RECORDS [...] BASED ON THE PRIMARY CLINICAL RECORDS. [employer] [facility]. provides no warranty or guarantee of the accuracy or completeness of information in this document.
[2024-08-10 08:07] LABS: Glucose Fasting 83 mg/dL (<95)
[2024-08-10 09:17] LABS: Glucose 1 Hour 131 mg/dL (<180)
[2024-08-10 10:14] LABS: Glucose 2 Hour 124 mg/dL (<155)
[2024-08-10 12:32] LABS: Glucose 3 Hour 95 mg/dL (<140)
[2024-08-15 15:07] LABS: AFP Value 29.1 ng/mL (.); Insulin Dep Diabetes No (.); Maternal Age At EDD 26.8 yr (.); OSBR Risk 1 IN 10000 (.); Results Report (.)
== END 2024-08-10 06:58 | disposition home or self-care (01) ==
LOC: LAB 06:57
PROVIDERS: PCP Family Medicine; Visit Provider Physician Assistant
DX: Z34.92 Encounter for supervision of normal pregnancy, unspecified, second trimester (principal); Z3A.17 17 weeks gestation of pregnancy; R73.09 Other abnormal glucose
CPT/HCPCS: 36415; 82105; 82951; 82952

== ENCOUNTER 2024-09-10 20:13 | Outpatient (REF) | payer MEDICAID, SELFPAY ==
[2024-09-10 21:32] LABS: Amphetamine Screen Urine NEGATIVE (NEGATIVE); Barbiturates Screen Urine NEGATIVE (NEGATIVE); Benzodiazepines Screen Urine NEGATIVE (NEGATIVE); Buprenorphine Screen Urine NEGATIVE (NEGATIVE); Cannabinoid Screen Urine NEGATIVE (NEGATIVE); Cocaine Screen Urine NEGATIVE (NEGATIVE); Methadone Screen Urine NEGATIVE (NEGATIVE); Methamphetamines Screen Urine NEGATIVE (NEGATIVE); Opiate Screen Urine NEGATIVE (NEGATIVE); Oxycodone Screen Urine NEGATIVE (NEGATIVE); Phencyclidine Screen Urine NEGATIVE (NEGATIVE); Tricyclic Antidepressant Urine NEGATIVE (NEGATIVE)
== END 2024-09-10 20:14 | disposition home or self-care (01) ==
LOC: LAB 20:13
PROVIDERS: PCP Family Medicine; Visit Provider Obstetrics & Gynecology
DX: Z34.01 Encounter for supervision of normal first pregnancy, first trimester (principal)
CPT/HCPCS: 80307

== ENCOUNTER 2024-10-24 12:35 | Outpatient (OUT) | payer MEDICAID, SELFPAY ==
--- OUTSIDE RECORDS SUMMARY | 2024-10-24 12:47 | XMS_ITS | CCD ---
Author Organization [facility] Care Team Providers Care Management Associate Name Role Phone Anthony Gomez MD Primary Care Provider Unavailable Primary Care Provider UnavailKENYA Gonzales Attending Unavailable PROVIDER, UNKNOWN Admitting Unavailable Anthony Gomez Primary Care Unavailable Sreedhar Cheney Admitting Unavailable Sreedhar Cheney Attending Unavailable COLE ALONSO R Attending Unavailable CELESTE, COLE R Admitting Unavailable Anthony Gomez Primary Care Unavailable CELESTECOLE HENRY R Attending Unavailable CELESTE, COLE R Admitting Unavailable Anthony Gomez Primary Care Unavailable Anthony Gomez Primary Care Unavailable CELESTE, COLE R Admitting Unavailable CELESTE, COLE R Attending Unavailable Anthony Gomez Primary Care Unavailable CELESTE, COLE R Admitting Unavailable CELESTE, COLE R Attending Unavailable CELESTE, COLE R Attending Unavailable CELESTE, COLE R Admitting Unavailable Anthony Gomez Primary Care Unavailable Anthony Gomez Attending Unavailable Anthony Gomez Primary Care Unavailable Tellez PAC, Spenser N Admitting Unavailable Tellez PAC, Spenser Gallegos Attending Unavailable Anthony Gomez Primary Care Unavailable Anthony Gomez Primary Care Unavailable Tellez PAC, Spenser N Admitting Unavailable Tellez PAC, Spenser Gallegos Attending Unavailable Anthony Gomez Primary Care Unavailable Weininger, Larissa Y Admitting Unavailable Reza, Larissa Y Attending Unavailable Anthony Gomez Primary Care Unavailable Weininger, Larissa Y Admitting Unavailable Weininger, Larissa Y Attending Unavailable Evonne Cheung L Admitting Unavailable Evonne Cheung Attending Unavailable Anthony Gomez Primary Care Unavailable Unavailable Primary Care Provider Unavailbety ALONSO, COLE R Referring Unavailable EMILY LUNDY Attending Unavailable COLE ALONSO Attending Unavailable CELESTECOLE Phelps Attending Unavailable CELESTE, COLE Attending Unavailable COLE ALONSO Attending Unavailable COLE ALONSO Attending Unavailable COLE ALONSO Attending Unavailable Allergies Allergy Classification Reported Allergen(s) Allergy Type Date of Onset Reaction(s) Facility (1 source) No Known Medication Allergies; Translations: [No Known Medication Allergies] Propensity to adverse reactions to drug (disorder) [facility] Repository Medications Current Medications Medication Drug [...] mg before bedtime. 0 09/30/2023 10/10/2023 Active clotrimazole 10 mg oral lozenge (3 sources) Azole Antifungal Start: 10-06-2024 End: 10-16-2024 clotrimazole (Mycelex) 10 MG jacob 1 lozenge(s), Oral, 5x/Day, x 10 day(s), # 50 lozenge(s), 0 Refill(s), 10/16/24 8:59:00 AM PERIPATOLOGIST, Pharmacy: [facility] [id number], 1 lozenge(s) Oral 5x/Day,x10 day(s), 170.18, cm, 10/06/24 9:22:00 EST, Height, 118.39, kg, 10/06/24 9:24:00 EST, Weight Dosing 10/06/2024 10/16/2024 Active take 1 tablet by mouth five time s daily clotrimazole (MYCELEX) 10 mg jacob Dissolve 1 tablet (10 mg total) in the mouth 5 (five) times a day. Active 24 hr metFORMIN hydrochloride 500 mg extended release oral tablet (20 sources) Biguanide Start: 10-06-2023 End: 11-05-2023 take 1 tablet by mouth every twenty-four hours at mealtime metFORMIN XR (Glucophage-XR) 500 MG 24 hr tablet Indications: Irregular periods/menstrual cycles , Insulin resistance Take 1 tablet (500 mg) by mouth in the evening. Take with meals Do not crush, chew, or split. 30 tablet 11 10/06/2023 Active take 1 tablet by graciela th once daily at dinner metFORMIN (GLUCOPHAGE) 500 mg tablet Rell e 1 tablet (500 mg total) by mouth daily with dinner. Active ondansetron 4 mg disintegrating oral tablet (11 sources) Serotonin-3 Receptor Antagonist Start: 06-07-2024 End: 08-09-2024 take 1 tablet by mouth every six hours for nausea ondansetron ODT (Zofran-ODT) 4 MG disintegrating tablet Indications: Nausea and vomiting in Take 1 tablet (4 mg) by mouth every 6 (six) hours if needed for nausea or vomiting 30 tablet 2 07/10/2024 08/09/2024 Active take 1 tablet by graciela th every six hours as needed for nausea and vomiting ondansetron (ZOFRAN) 4 mg tablet Take 1 tablet (4 mg total) by mouth every 6 (six) hours as needed for nausea or vomiting. Active Completed/Discontinued Medications Medication Drug Class(es) Dates [...] capsule 07/02/2024 07/10/2024 Discontinued (Therapy completed) Problems Active Problems Problem Classification Problem Date Documented Date Episodic/Chronic Administrative/social admission (20 sources) Patient encounter status; Translations: [Person consulting for explanation of examination or test findings] Onset: 11-03-2023 11-03-2023 Episodic Diabetes mellitus without complication (2 sources) Abnormal glucose tolerance test; Translations: [Other abnormal glucose] 08-08-2024 Episodic Immunizations and screening for infectious disease (2 sources) Exposure to sexually transmissible disorder; Translations: [Contact with and (suspected) exposure to infections with a predominantly sexual mode of transmission] 08-08-2024 Episodic Menstrual disorders (20 sources) Irregular periods; Translations: [Irregular menstruation, unspecified] Onset: 11-03-2023 10-04-2023 Chronic Other complications of (3 sources) Vomiting of , unspecified; Translations: [Unspecified vomiting of , unspecified as to episode of care or not applicable] 06-07-2024 Episodic Other endocrine disorders (20 sources) Polycystic ovary syndrome; Translations: [Polycystic ovarian syndrome] Onset: 11-28-2023 10-06-2023 Chronic Other female genital disorders (2 sources) Vaginal discharge; Translations: [Other specified noninflammatory disorders of vagina] 08-08-2024 Episodic Other nutritional; endocrine; and metabolic disorders (20 sources) Insulin resistance; Translations: [Insulin resistance] Onset: 11-03-2023 10-06-2023 Chronic Other and delivery including normal (14 sources) ; Translations: [Encounter for supervision of normal , unspecified, unspecified trimester] 06-07-2024 Episodic Other screening for suspected conditions (not mental disorders or infectious disease) (2 sources) Encounter for other screening follow-up; Translations: [Encounter for other specified screening] Onset: 10-18-2024 Episodic Residual codes; unclassified (1 source) Gestation period, 8 weeks; Translations: [8 weeks gestation of ] 06-07-2024 Episodic Residual codes; unclassified (2 sources) Gestation period, 13 weeks; Translations: [13 weeks gestation of ] 07-10-2024 Episodic Residual codes; unclassified (2 sources) Gestation period, 17 weeks; Translations: [17 weeks gestation of ] 08-08-2024 Episodic Residual codes; unclassified (2 sources) Gestation period, 22 weeks; Translations: [22 weeks gestation of ] 09-10-2024 Episodic Residual codes; unclassified (2 sources) Gestation period, 26 weeks; Translations: [26 weeks gestation of ] 10-08-2024 Episodic Past or Other Problems Problem Classification Problem Date Documented Da te Episodic/Chronic Disorders of teeth and jaw (4 sources) Tooth eruption disorder; Translations: [Disturbances in tooth eruption] Onset: 04-24-2024 04-24-2024 Episodic Results Test Name Value Interpretation Reference Range Facility C Throaton 02-03-2025 C Throat Normal throat justine isolated No pathogens isolated Normal [facility] Comment on above: Performed By: #### [id number] ####[facility] (DEFAULT)[address] [place] [address] Coding Summaryon 10-08-2024 Coding Summary HTMLBase 64 RveoxfsoLDp0jPr+PGhlYW Q+EQ5CDIVzX82hqBIkrQ1b P6HBYYqDUysbWQYEGFuZUm SnhuYfKI9veGGwDJDb IC8+PL7nYXOdRptkeSBtq9 O9dNH3M37osh9aSItjhQU4 YHOzVpRjxzaoi2rbwUj3WJ cuNmluOyBt FRHeiL51YNV8kM60Ru92nY UuaJClf8fuzRg0QjIxXLKf VSX9oYtqZEkhf5TcNPWsY6 1xbPSpz4J5 WBIfiInhlZUaEwEyzKO4nR 7sTUwhjxanu0temjekPph0 ic47fYDok0D3qNX2R2Iaxx Y8UQJfoBLc FetatTRMjI3risnie8urom obUhRkAFSfTQy4VUi3XRUd sXjhBoMtZR76BEM9RADnle RfN1MzDZDu pTzyPsL8d5Q2Et3WW5VBXs bvG2UJGMTVGSaiyOB+PC90 wl89T5GpBaroDpv8NVPxQG L2rZP1mT4g NFJbRHkan3R4eCI6J9Yhvm Kanp9aa7dfFMOeOBciK43l xKLch1R8OFBgcTV4LCJqqA sjFlUcqW36 Oyc+AOLwtVwhy4QyVpvwn0 neo6xxiBu3WuyfORUpsrTl fLodDZH5q7UkLv0hMQEnsR S0mTR0uD4m LuPyXxZ7YDzbG345UfSbtC OgFsuwV90xQ1ElwDK+PHRy Ibu7IGHswBqkGJ5eV1ZdHD RpbmctbGVm nMygGN3kAJCuahgpGYCtaD 6sVKLtO7q3XvUsBeJ0AZhh T7AfKRFziiesEl14hV2dBp EsPtS6EVzo K8AfhiE1ZWScwMEcJKxeGT J1A32uj2W4GESuNGNwCQW7 uLC4aO7vcJvefmcqyVCkqM sgdmVydGlj OSzeMEitZ487HWFquYegTo NvZGluZyBEYXRlOiAgMDIv MDMvMjAyNTwvdGQ+PHRkIH J9zUdtTZJo tXSuIBemHd5wyWvrhFlvPD 8pGJZnmzjwIABelQ5jGSVe nWVorTtlKK5bBQMowqfnn9 32AyAfGTM9 OWEtiRPdZ8IqcB9pDvTkKG UjYYQpW2AobUZhTAjwW668 YRvdEpB9IXClrmRpU5BmIJ FsaWduOiB0 f0D2Oo1Qy9DcxghbL4XvvF LfZvJsYayxWEz2Y0PiMlwx dHI+LC37WUEkOS25STo6VG M1hUfiETvt JDPzO7RjwR6oZcHyGXYcWJ RkOyc+PHRhYmxlIHdpZHRo JLqhCMDqOeTvhZvnGM5lMg 9yZGVyLWNv vQbsnOAaWgYys0imEMAzAE inLE4jbSylA0SsqIC1TVTb t3m1Pp04G23xH1GdfIL+PG SzmFF1pYY9 uZ8lFaRwKfK0ORwfA335Ah PchZWfWxppq8cms1ndpQf4 UzJ2TYEegjIfpCmcYDZ1c2 IfYv14D69t IHdpZHRoPSIxNSUiIHZhbG ggin2nhB3wBo3+PGNvbCB3 eSG7qN9nAzVdZhH5UJkzW3 49InRvcCIv Ditcj7wff1kthWf1UmKoWI NcekCjkVrtNFD9f9AiWt53 R6XxsDrcm9MkKll0sm71tI Svw0L7aPS5 E8CaYPHwkfzheWTnvVikAE 5rRXZkqabcPOVumU1kFNEy S6e7AxHbEbS3TLggQ2Aewl M1XDRooZYp CVZgbXAGxU9ksxrfm3acxm wzEkWsXXMmNTw4XLg8CEMl dIvyEvGaFLU7LhW8UQH7zM AijN2teEro tepwzN3pIwj+XLF1iRQgrZ XRFO5wAsjfqWK+PHRkIHN0 sHedZDopXJAnfP3cDSMaS3 v9JyEaEeR2 MJrrE3HduzB5JAHenFCzZA JsqWKChW1ebxcoi7zryfcj AlWfTLCxRAi3JOi8EVQbaP duOiBsZWZ0 HjR8RGJ1pNYnaS1jqGpyll zptV9uGuk+QmlydGggRGF0 COk1E3WxRsx6PXMaiNzeEG 0ncGFkZGlu Wx0cnGwogGchHS5vJNBehp otv100VcYac1jkXCKdlPEh JVfqTHM2N76ki8L7DPXdHN KrSRU4gOS4 yJ3nlZwxnmdyhNTceKfjoa YxzBanTKtzJOkzY770TPBm pKqoEeVqIEt8V7KnMzv8JS EhnFyxVN4d qZAkHSduXt8ljOcddYcyJJ 1mYSHsoepki979DvApj1qy QUZyjCQwGJvjTUT9L16hv8 R5DICbUYSa PMC1gOQ2pS2fgYzsathkhD VmdDsgdmVydGljYWwtYWxp M578VSQugZrpLzRclKd2C0 SzXqr0VNQb qKllCT2jwRFwMCdeJr0foZ gphIvbEZ4eAALpdnutj937 CfFva1iiGKJwqFYnUOpyPS G8U36qa8Z5 AAHvCHCmMPV5rTQ5yT9wmY lnbjogbGVmdDsgdmVydGlj VYbePMrrH833XNXvrMacDt BhdGllbnQg BWyqXZi5W8YbXlnkkPE+PC 84UOBfSW75rUMjkIZla7hn jOg0IrAqNLYcLNL3mMepOB agw3UaEGHn B69gbOLoi5W8JWPhuSvajE DqDiPowRR4rJ2dJIasspmf v1hrasosQrpjm0krfm39qS 33T28sRXiw ZHRoPSIzMCUiIHZhbGlnbj 6iiO0tJl9+AUKrhBN6zXU7 iU1dDILzHyD5WRkhS184On RvcCIvPjxj a8yda1ewwZe4NwL6CLZfxv TqmAijIHG6f7BiOf79E02k IHdpZHRoPSIyMCUiIHZhbG lpqd9oiA9g Ii8+HMPdzQY9aUO3bS6sHp YuZwG6BCxlG055ZpBkvTAj XwdnZ97jD2UhcIL+PHRyPj l1KLDjmMxv AU3ssGYeBXkkRj5pQAQ6Bc XbQdVjSKccX3RwNFCbgnis bongqNV3LPDiLLOvzT57Ac 9udDogMTBw oBHVnQ3aizulv4xvouadDy UuONSfKSb1DQr1TCWuaKfr OoQzMXR0IrT9AGK9lSUbsN 1hbGlnbjog yZ8yN7IqLZHzmmdjQm66qA 7cKxHcYaK8IIbdKaf+Q1JB K0VFFdJyGLBKTJHXCdXrOD lDSEVMTEU8 Q7YwGhc3EYEsqYaqAS0mvV OnEBrkHd0dxRerwQubTO5s PQYdtrxwJFOdrN3fAUIwpX WcsVdiDZ8m KKWbipfrt115ArHrNZR7VX TmaUApX2BszE2uOxBePMOf DRGgY0LvrOTkOQzaU175FT hlEdV4GLSs qsQnJ6XhJKPahPleSqA4z8 X4Ek1zBv0jKS2eGOh2YS71 XL99pSLrv7L6sHM8J3TlYB Rpbmctcmln xWE5AHSuKQAshS75kILcPE ffQv1dq5R4c706RACeBBJt dN36Oz3yzKysFDFluAEJuH 6gfpygp9lg pcbvLnQxHWEhIIu9FQy4PK TkhFnoHkNlSRZ9StZ8XFJ1 qWXrrF8mlWubjbfbaC1xRh c+MjYgWWVh kvI0F2HiTir4XFNneJonBC 6pmSGtSGtvDu3eyBolgJat ZS1wYKRpzvxjKIMdcY0oBV JvdHRvbTog CD9qORPvhvtfr904IcRhNV V4KYLpxYRuD6AxrA5dYgNf ZDDqSGQeL1IcyKAvMLbwI1 46BVooLoI0 KVBmdpRjX9DhVQEbjBvcXd U8m1W8Kq5ZJQ7BYQC0T4Jr Lxu7JUUbrAnlCA4zpSDlYH inJm1muKat sPoiTT5sURRqgtafUJGkfH 8jWBIvqKNtmVhoFB3hDYMp rubaa544WrFfGJU5XHZvcZ FqF5ZatC6v JcOpYURfVJIjP7UpxAYeWC dnE070VVuuZzJ4LLFzbrLz O7LiPDSjgBldQjM0d5Q2Ji 5PUDwvdGQ+ RQ65tp79T9ZtHvddXrq3FU VkBLD1iMQ9xH9kPEKhDOrc y6P8fGL1D8DlgxMbjd7ij6 xsYXBzZTog V43ylAHhj0B8UGCykOI1YK IqlYtyZtDwfU90Jno+PGNv fVvai7ZcSzraj6kgv9oevN n1DwXuWJRy koJutGsfMXB7x1QbSe37V9 9sIHdpZHRoPSIzMCUiIHZh eCmijk2faG8jTy7+PGNvbC N3vTZ1dU8z ZgFsIfO6IGxoQ652DyGovK BrBxilz9jum8igfYf6IzPs YUDysmEidMyeLYM3a2QfGp 46K5OxeVzs r5HrPyu8wi07jXAmr4R9kM M6J0LaHNSyfledlKWpzUaj FX1fSJKtapplGFIhaS3sOQ AcL4w4PhJl IuT7WJkqW5ZolhE7WOWkkK FoLZCgpKLBoH2vuuwyc1iv bbeoKoMjWHTpNPg9DEt8NM FsaWduOiBs ZPN8TlA2ZBG1kQAxhZ6ieQ alqcvbbD5qSpz+BMb4a2qv sEVkKG3ptEV9OM41MO29qY Bli1O6cFO5 T6OeZPJergizekopoXC5XR TsECEybA09Mu4btOyeHm8v CKOeFSR3MWMhuBDzI6IlhE 9yOiAjMDAw NYXjH6NdmBEiHBfoP341PU zgHrB4EHLiprQdQ1KlJJYt sJqwPxY9d0R2Gs7CTD89BQ 01IQ44xTRs x1W7mCM7T3XjFRVmrllmtb oepQA1ECOpPYGnoN23Qv0h zGwwPe5uMEWrYYG5JAKlyY YpY6YdjM8t DtPwSPNdTVEbU6WqrMVkFD duD312CUxsXoM8ZARictKb B8GlVSZwrTaaPnM3r9N4Ro 5YXs40CH64 FL77nQIlu4U8gWY3K9XgGH ZacpgwzpgzsLO7LWNnOQAu bG81Nf5niCvrTk8uSOKwQM O2IYEhbLMu I9GbuB6xCsWdFCZmDFLeG9 WcmDIcNZdtT241RIsoQrI1 BVIubxJwP3DqDMEhbFocPh M7k2W2Uq4B IVclzug2B1NdWlhwmLY+PC 32YRIgPG90rRWfmEWhe5he pKf2ZdRqWTPrDPY7aVarWL hmp3LmAALf Y29 (more content not included)... Normal [facility] POCT Rapid Strepon S. pyogenes Ag IA Ql (Unsp spec) Negative Invalid Interpretation Code [facility] Comment on above: Performed By: #### [id number] #### [facility] (DEFAULT) [address] [place] [id number] C Throaton 09-26-2024 C Throat Normal throat justine isolated No pathogens isolated Normal [facility] Comment on above: Performed By: #### [id number] #### [facility] (DEFAULT) [address] [place] [address] Coding Summaryon 09-26-2024 Coding Summary HTMLBase 64 SwksdvyyUWg0dAi+PGhlYW Q+CB7QYWExP37rsYWacK3k B1PJFZqRLbujSRTEXZgDKb GkpoDbZT6siJAnHDVk IC8+VV4vWRTcZtovlBGek6 S0zAB9O14ryd8jEKpkpNW7 PSAtPvCxxzstw0ricUt8NP cuNmluOyBt CVVmmQ33XGL6iE16Ss58iX LppQJvy2lmxZs3EfAbMDDs OTE9zAxyIKhuk3LkTWUvR7 7jvLLwj1O6 NYCtmAurdYAoTtDzyHA6aK 2rBLerdpvjv8egncikWue2 he50iODwk7A7dUI8W9Mvfi T2GTEwmYOq TwfhkDQFsP6jrugrg1pcdt znMdEcJZVoWBz7FAh0OEFx oAosXoGaQX80EGM5QIEsun DuN1HnRRMw wYqiQeF8s2L0Ab4JY0CUUu crB8OCXVGLCThfkPJ+PC90 ly59T1WjHvofGen6IUGwDC T6zHW1pU5q IXPuTPewj3D7hJH2E0Nhfl Afwg9hd7hkKOGgLVlsL55t lLHcy4P3VQPlpCB0JJJyyB prQqBlwQ00 Oyc+RKYpfLobs3SoYdcoo0 yoy8mhyDw3UdyrGUJorvVp hSizEAL1m2MeHm6oYHWdqS X7gRU1dL6f ZrFeFfA7VWweU281RdYltT PoMtnlR36aK9WqqRB+PHRy Dbl3WYNxcEfxVK9kP3TzDY RpbmctbGVm iWrdZN2tCQXbdpmbVXHfaF 6pWAEhB5g1IsGxNdQ5LVzz B1YxELPvzntuAq08iE2mWt QqJwR0RDef H4VauvH9ZSQpyHKeUIunOJ V1Z68ar7I6WQPwUIMcCFF4 ePY7rD2noKqmcpqaqKAgpL sgdmVydGlj HOewQMxpZ827DSZdvUufCx NvZGluZyBEYXRlOiAgMDEv MjIvMjAyNTwvdGQ+PHRkIH H5pBtfWBAf dNNbMBawUf2gcGerkWggAA 5eKMCgpuolQGMboQ2yLXNj nLTczZqrTC7mKXZdqldrl2 23ObWlQNZ8 ICCusGTzF9YaxG7rRoEbGT BwBKZeL6GrqUQrEFctX336 PRpsTzR2SZTqupMyA3GqQK FsaWduOiB0 f3I6Sa7Ux1KpdjztO6FuiS ZqYyVqOrtxAVw3E7VkQlmh dHI+QN25TIGjCU89CSo3LN A3nSujLVev LFNyI1VphP4jNmRsNDDuBY RkOyc+PHRhYmxlIHdpZHRo DJhxZBIgXsGxkVloGX0tZm 9yZGVyLWNv vQlgwCUeGqMvm4ttNVNmZD qzOL9knWymR9TcrLY0IHYw x6r0Df97W85zO5AcnMT+PG LotRH4yOA1 yM5rMkFaNsT4MBuqT570Sd PyzLAbYxjus9gis6rpuWt3 DxC7BRKtdoFojPrqQNX7l3 BzNv68M67y IHdpZHRoPSIxNSUiIHZhbG ityy7wpJ7qRf0+PGNvbCB3 bEV4aP5uZtQqAuO9YDeyU1 49InRvcCIv Nmhej6coc9gqiQk9KjUtOG BgjzRstIhdQXG4u4AoQs95 G1HcxArkt9AnWwo2xa13gF Tby0F9iVA9 Y7FqMJIxjasbmZYomUstPR 2fTYQxeakjPRZgjG9sSEQq C9g6BwVoZyG6LZfsZ9Amqy D7LWKjtHZz NEYlmXKFnH7qdasjp6xcpe zjUfKiDUQkEIw3SEy1OFTw yGcdXqQgHKK2JyY9OAT5lD CjfE4dvMka pqjagD0vZpv+KFP9uPQtkM BLDO3pRfeybFP+PHRkIHN0 bJijPYzrGBFhtW7bKHKlM0 d1LzNfOyX7 RZyhC0HwsjC2VILkyOZpDU TmkWFXtF1iyhkkg2bcesja XpTgOOMjMOq4WYx4ODCvgO duOiBsZWZ0 OfA2LLJ1mFFwjT9qbXjwpi kotE0oFfk+QmlydGggRGF0 YUn3J8HeWuz2CRJabWhkGN 0ncGFkZGlu Av2wrZijbGqfZB2mSGJcid vbr585WbExj8imQZTruRLp KAdtJFM4V15zb5H3PDRxXU SyTWT4lCB1 mM4cdGcymwhcnWNgsJkbah FfyBqeJOnzKUxrF987GDMt qOltQqGeIUv8A9JmLgt5YN OirAtxYK1l qNHwVCsjUh3rmRrqoRehLE 1oCHCwyoiov625FvLiw4un LBXnfTXuUVfbMWX2O10zd5 C5NZNoGBJe VEF4uFX0bB9ymXrhckzzuC VmdDsgdmVydGljYWwtYWxp I540UBSamWhrElSrpVs0C1 CkLom2UHKs jZjrHY8bxCJlUTbqBz4ggX xaeAfeRM9bTWKiflsgn936 VsZvg4ahQQZqsCOpVAfrSP O2Z31yv6K3 UPXnNFPwZIF5nHS3bK6mqL lnbjogbGVmdDsgdmVydGlj LSvvTZvuA782DTLvcXjyJe BhdGllbnQg OIliPWc6F0TlJlbeiXP+PC 01OXDkCD09sDKiwLEvf5bf fSq5YfBrTYBlVYN4sMlgOD tsr6CvQPUh V50zlSQer4I6EIOecQuihV LhDzUldLR3gW6eHKbebzym v8lsjxdwSfaeh6hnup70nY 03S54vNPui ZHRoPSIzMCUiIHZhbGlnbj 3fhI7tFp4+TUYwtNB4zSW6 pQ3tZUVrEvH4ZZyuC566Bu RvcCIvPjxj m4uuf2tcwIw2PrD7XRLapd YyjLvdSZN7r1JnDg44O97a IHdpZHRoPSIyMCUiIHZhbG hzex5rdR1f Ii8+MUPgsPD6gKQ8sO6mYv IrZvZ8WUaqM911KrTpuLAg IfdvP09mE6MikYG+PHRyPj b5VWYnwYkz IZ0gzVFyPIzgJc8iERL9Xe CzCoVuVCkcT1FcXAImprdy yegidWB1ICAxKQQslO25Gq 9udDogMTBw kFRVjB2dkyrfv1pobftqYo BcUUIeYYs4PUt9GKGfkJzu HdYwRBD5BfJ2QXW1hZZuiG 1hbGlnbjog zU0zG9IwQDRgljddRl34oB 5tRgNyPnB5OClhWjq+Q1JB E4RUHjOnGUAEXXTVCdZdSI lDSEVMTEU8 D5CgBkd6AWMasSgrRP6abF SvNBopOd6nrOxwiSbaQT9p SZEqrtpnLFExvR0cRTJojN TmzNewVQ7l RCXqhgxby124JfZwXBE8HW WmcARbZ4AfpI8zCqRyHMRl VJTvU3LpuEKwNXjdS964GC ucIfM3WHBy txIcC9BaODHdsAlyRtG2i0 C4Nd7hTj4qDD9pVLi5HS05 CM18nVUjd6Z1iWF5U4IfOC Rpbmctcmln hZK7LRIqWVKztJ83xPFrOP hmUo0gd0Y9s056FAEyHFKe yF60Ge0kqCqqUQNeyNKKbN 1jhuxas2ub laiiPuSqFVCiULk1LMb0IU DxpKvdMiUzQWK7BaE9ZJE3 gUEmsD4glVteghpxhX3mGm c+MjYgWWVh ktF6K8WaRgn3HVPngUlyHB 2kwCPzMEzkHh8qcQffuPur WZ8vHPUlxjfjDIQnhF8jYO JvdHRvbTog CM7vPHRcmrodb112NcEqWQ W9WOSylJRcX0MlxN1tHlZq XJAhGRKoX2IseJJfGWfxZ7 69BRykIjT8 AVDnqaXkH6YfWHTxsLdoAh K2f3C7Fq8YNL5RVJC6N6Vj Lns6TXTryRseLL2svUOyPS pbVq8koBcu iHacGW2eLYAdbammJZFcqE 4kPHAscSOhjFhoTP4tGVMi jnpqc852HnTzHDT2SZFcyI QuE5EpvD4c EmCcMILvFJSiZ0NigUYqGZ jgS819IXnfGoF8CPEfhlFm V0QqPSVkaXamFgD5q8X4Db 5PUDwvdGQ+ JL16hl69V3NtYkbuDrw5CY KiFEO6eMQ0iD5wPYHdVAdy a5Y9kIF6U2IrbnDanw0ux1 xsYXBzZTog Z26vnRYjb1M1HVRsoZI4UA HhdSprJaFicL21Wzw+PGNv lQbox4GsIrdtc2ltg5emyL i8WvBwELMy flHwkWjyMVX7q1BcMx39Y8 9sIHdpZHRoPSIzMCUiIHZh eVxbdh5yqG6lEn1+PGNvbC P0tIF6rE9g QsXyXoH5PLquH261KaByfB AqKrmid4rpo6esrJs6IzXa MFHxkrWkeEjmKQW6k9OaIy 61P4TbdRig b2HmLez8pk96tDWjf5M8rJ D1Y7LzROAxmsxtbFSkkXdw WE0tAHZibxuvOMRnkL9bDJ XzU4e1SbTa OrK0IFeaE0UiybI0TWKmdP BqFWNnuNTHzJ5auspzu5jc hpnlZoGdKVEkFKn4KQv5WE FsaWduOiBs UBO9ZeX7CFQ7uCLjtZ6qqS orlsujhL8vNdy+DZv9j5vp yMQfBU2xjFW3NK65RF43aG Bmk5M4kBZ5 L4HaYNUszeuxnpbebFP2YQ EmKNJjwK95Qt3xdOmbEt7s TDOaNZG0IGHmwKLlS9KnkV 9yOiAjMDAw TJAcM6ZgcNXkYEzeN509YV jrTwR0TSRhetXfL0RiSVXp oSbsPfR2h9B2Mf5GWN15WE 26BJ71zZUw y2F4dHY1Y0WkBFIrcobxuw gssFE3PSBfSSPgnG96Zp7x iFbbMe7gPVGkLNX9KJSpmZ NfW4QpyC7k NhDqSXWaJHLjC1HxdJSwUA crI407WUheSqZ2XYYxidJy W1HzLWEbjDggFhP4o9A0Mb 2LGh70RH52 PI84dAEiw0F0dCR4R2SeED WlvxtitczntYQ1CJJiRLIw tB25Zz1vdDifEd8tUPXjFZ A2ZRTdrVFi U0TehE9mDnJzTGLrRXHvP4 SjwZPcRUloI745BPocSoW2 CPZqaeIqR2DoXKYbiZrwYe B1y1N3Kg2B PGvjjvd5Y3EgLdwuoTP+PC 25YQEoGI77oAXzhCVhu3vv eIn4CoAmDYLzXYZ5cTlyGT piv4DfSNKm Y29 (more content not included)... Normal [facility] ED Clinical Summaryon 2024 ED Clinical Summary [facility] ? Urgent Care [address] [place], [place] [id number] Clinical Summary PERSON INFORMATION Name: SHERLY ASTUDILLO Age: 24 Years Sex: FEMALE : 2000 MRN: Acct#: Visit Reason: UC - Throat Problem; THROAT PROBLEM LT SIDE Arrival: 09/24/2024 12:32:36 Discharge: 09/24/2024 13:30:00 LOS: 000 00:58 Check In: 09/24/2024 12:32:36 Checkout: 09/24/2024 13:30:00 Address: [address] [facility] [address] PCP: Anthony Gomez MD PROVIDER INFORMATION Provider Role Assigned Unassigned Michaela Early MA ED Nurse 09/24/2024 12:34:[address] [facility] ED PA 09/24/2024 12:34:58 VITALS INFORMATION Vital Sign Triage Latest Temperature Tympanic Temperature Temporal Artery Pulse Rate O2 Sat 100 % 100 % Respiratory Rate Blood Pressure /77 mmHg /77 mmHg MEDICAL INFORMATION Medications Given: Allergy Information: No Known Medication Allergies PHYSICIAN DOCUMENTATION DISCHARGE INFORMATION: Discharge Disposition: Home Discharge Location: Home PATIENT EDUCATION INFORMATION Instructions: Pharyngitis; Oral Thrush, Adult Follow-Up: With: Address: When: Anthony Gomez MD [address] [place] [address] In 3 days Comments: You have been seen for sore throat. We tested you for strept throat, and this swab was negative. The swab will be cultured, in 3 days you will be notified if it is positive and an antibiotic will be written. Supportive care is important, keep hydrated. Use Tylenol to treat fever, and sore throat. You may also may utilize 8 ounces of warm water with 1 teaspoon of salt, and gargle and spit at least 2-3 times daily for the next 5-7 days. Follow up with primary care provider in next 3-5 days, also f/u with your DISTRIBUTION DISPATCHER, for reevaluation, return to the emergency department/urgent care for worsening symptoms or concerns, spiking fevers, intractable nausea or vomiting, acute shortness of breath, difficulty swallowing, or any questions. You have been diagnosed with thrush. This is a fungal infection in your mouth. You will be given clotrimazole troches, these are wafers that will dissolve in your mouth. You will take these 3 times a day for the next 7 days. DIAGNOSIS: 1:Oral sharon; 2:Pharyngitis Patient Understands: Comment: Normal [facility] ED Patient Summaryon 025 ED Patient Summary [facility] ? Urgent Care [address] [place] [id number] PATIENT DISCHARGE INSTRUCTIONS Patient Information Name: SHERLY ASTUDILLO Age: 24 Years Date of : 2000 Reason For Visit: UC - Throat Problem; THROAT PROBLEM LT SIDE Arrival Time: 09/24/2024 12:32:36 Primary Care Physician: Anthony Gomez MD Attending Physician: Larissa Cobb Comment: Patient Education With: Address: When: Anthony Gomez MD [address] [place] [id number] In 3 days Comments: You have been seen for sore throat. We tested you for strept throat, and this swab was negative. The swab will be cultured, in 3 days you will be notified if it is positive and an antibiotic will be written. Supportive care is important, keep hydrated. Use Tylenol to treat fever, and sore throat. You may also may utilize 8 ounces of warm water with 1 teaspoon of salt, and gargle and spit at least 2-3 times daily for the next 5-7 days. Follow up with primary care provider in next 3-5 days, also f/u with your DISTRIBUTION DISPATCHER, for reevaluation, return to the emergency department/urgent care for worsening symptoms or concerns, spiking fevers, intractable nausea or vomiting, acute shortness of breath, difficulty swallowing, or any questions. You have been diagnosed with thrush. This is a fungal infection in your mouth. You will be given clotrimazole troches, these are wafers that will dissolve in your mouth. You will take these 3 times a day for the next 7 days. Pharyngitis Pharyngitis is inflammation of the throat (pharynx). It is a very common cause of sore throat. Pharyngitis can be caused by a bacteria, but it is usually caused by a virus. Most cases of pharyngitis get better on their own without treatment. What are the causes? This condition may be caused by: ? Infection by viruses (viral). Viral pharyngitis spreads easily from person to person (is contagious) through coughing, sneezing, and sharing of personal items or utensils such as cups, forks, spoons, and toothbrushes. ? Infection by bacteria (bacterial). Bacterial pharyngitis may be spread by touching the nose or face after coming in contact with the bacteria, or through close contact, such as kissing. ? Allergies. Allergies can cause buildup of mucus in the throat (post-nasal drip), leading to inflammation and irritation. Allergies can also cause blocked nasal passages, forcing breathing through the mouth, which dries and irritates the throat. What increases the risk? You are more likely to develop this condition if: ? You are 5?24 years old. ? You are exposed to crowded environments such as daycare, school, or dormitory living. ? You live in a cold climate. ? You have a weakened disease-fighting (immune) system. What are the signs or symptoms? Symptoms of this condition vary by the cause. Common symptoms of this condition include: ? Sore throat. ? Fatigue. ? Low-grade fever. ? Stuffy nose (nasal congestion) and cough. ? Headache. Other symptoms may include: ? Glands in the neck (lymph nodes) that are swollen. ? Skin rashes. ? Plaque-like film on the throat or tonsils. This is often a symptom of bacterial pharyngitis. ? Vomiting. ? Red, itchy eyes (conjunctivitis). ? Loss of appetite. ? Joint pain and muscle aches. ? Enlarged tonsils. How is this diagnosed? This condition may be diagnosed based on your medical history and a physical exam. Your health care provider will ask you questions about your illness and your symptoms. A swab of your throat may be done to check for bacteria (rapid strep test). Other lab tests may also be done, depending on the suspected cause, but these are rare. How is this treated? Many times, treatment is not needed for this condition. Pharyngitis usually gets better in 3?4 days without treatment. Bacterial pharyngitis may be treated with antibiotic medicines. Follow these instructions at home: Medicines ? Take hlcg-lyy-zxclghp and prescription medicines only as told by your health care provider. ? If you were prescribed an antibiotic medicine, take it as told by your health care provider. Do not stop taking the antibiotic even if you start to feel better. ? Use throat sprays to soothe your throat as told by your health care provider. ? Children can get pharyngitis. Do not give your child aspirin because of the association with Sebastian's syndrome. Managing pain To help with pain, try: ? Sipping warm liquids, such as broth, herbal tea, or warm water. ? Eating or drinking cold or frozen liquids, such as frozen ice pops. ? Gargling with a mixture of salt and water 3?4 times a day or as needed. To make salt water, completely dissolve ??1 tsp (3?6 g) of salt in 1 cup (237 mL) of warm water. ? Sucking on hard candy or throat lozenges. ? Putting a cool-mist humidi (more content not included)... Normal [facility] POCT Rapid Strepon 5 S. pyogenes Ag IA Ql (Unsp spec) Negative Invalid Interpretation Code [facility] Comment on above: Performed By: #### [id number] #### [facility] (DEFAULT) [address] [place] [address] Urgent Care Recordon 025 Urgent Care Record [facility] ? Urgent Care [address] [place] [address] PATIENT DISCHARGE INSTRUCTIONS Patient Information Name: SHERLY ASTUDILLO Age: 24 Years Date of : 2000 Reason For Visit: UC - Throat Problem; THROAT PROBLEM LT SIDE Arrival Time: 09/24/2024 12:32:36 Primary Care Physician: Anthony Gomez MD Attending Physician: Larissa Cobb Comment: Visit Diagnosis: Diagnoses This Visit Oral sharon (B37.0) Pharyngitis (J02.9) UC - Throat Problem ([id number]) If you received any narcotics, sedation, or [...] With: Address: When: Jason MCNEAL, Anthony Santo [address] [place] [id number] In 3 days Comments: You have been seen for sore throat. We tested you for strept throat, and this swab was negative. The swab will be cultured, in 3 days you will be notified if it is positive and an antibiotic will be written. Supportive care is important, keep hydrated. Use Tylenol to treat fever, and sore throat. You may also may utilize 8 ounces of warm water with 1 teaspoon of salt, and gargle and spit at least 2-3 times daily for the next 5-7 days. Follow up with primary care provider in next 3-5 days, also f/u with your DISTRIBUTION DISPATCHER, for reevaluation, return to the emergency department/urgent care for worsening symptoms or concerns, spiking fevers, intractable nausea or vomiting, acute shortness of breath, difficulty swallowing, or any questions. You have been diagnosed with thrush. This is a fungal infection in your mouth. You will be given clotrimazole troches, these are wafers that will dissolve in your mouth. You will take these 3 times a day for the next 7 days. Medication Information: The exam and treatment you received today in the [facility] were for an urgent problem and are not intended as complete care. It is important for you to follow up with a doctor, nurse practitioner, or physician?s assistant director of residence life for ongoing care. If your symptoms become [...] so we can reach you if necessary. [facility] has provided you with a complete list of medications post discharge. Please inform your hazardous materials tanker driver/provider of your visit and for further instruction on these medications. Any specific questions regarding your chronic medications and dosages should be discussed with your primary care physician(s) and/or pharmacist. New Medications [facility] [id number], [address] [place], [place] [id number], [phone] clotrimazole (clotrimazole 10 mg oral lozenge) 1 lozenge(s) Oral (given by mouth) 3 times per day. Refills: 0. Additional medications on your home medication list not specifically addressed. Please contact the ordering physician if you have questions about these medications. multivitamin, (Multivitamin) 1 tab Oral (given by mouth) every day. Visit Information Allergies: Substance Reaction Symptoms Type Comments No Known Medication Allergies Drug Vital Signs: Vitals and Measurements this Visit (last charted value for your 09/24/2024 visit) Vital Signs This Visit Temperature Temporal: 36.4 DegC Peripheral Pulse Rate: 85 bpm Systolic Blood Pressure: 115 mmHg Diastolic Blood Pressure: 77 mmHg SpO2: 100 % Oxygen Therapy: Room air Blood Pressure Method: Automatic Measurements This Visit Height/Length Measured: 170.18 cm Weight Measured: 118.39 kg Weight Dosin.390 kg Body Mass Index: 40.88 kg/m2 BSA Measured: 2.37 m2 Problems List: Problem Onset Comments Depression None Polycystic ovarian syndrome Patient Education Pharyngitis Pharyngitis is inflammation of the throat (pharynx). It is a very common cause of sore throat. Pharyngitis can be caused by a bacteria, but it is (more content not included)... Normal [facility] Telephone Encounteron 2024 Crime Scene Technician Authentication Interface Message Text Called patient lmom to call office for sooner appt... we have them available. Thank you Normal [facility] DRUG S[facility]EN RAPID (URINE )on 09-10-2024 AMPHETAMINE SCREEN URINE Negative NEGATIVE [facility] BARBITURATES SCREEN URINE Negative NEGATIVE [facility] BENZODIAZEPINES SCREEN URINE Negative NEGATIVE [facility] BUPRENORPHINE SCREEN URINE Negative NEGATIVE [facility] Comment on above: DRUG CLASS TEST SYST EM CUT-OFF CONCENTRATIONS ARE FOLLOWS: AMP (Amphetamine): 500 ng/mL BAR (Barbiturates): 200 ng/mL BZO (Benzodiazepines): 150 ng/mL BUP (Buprenorphine): 10 ng/mL DOROTHEA (Cocaine): 150 ng/mL mAMP (Methamphetamine): 500 ng/mL MTD (Methadone): 200 ng/mL OPI (Opiates): 100 ng/mL OXY (Oxycodone): 100 ng/mL PCP (Phencyclidine): 25 ng/mL THC (Cannabinoids): 50 ng/mL TCA (Trycyclic Antidepressants): 300 ng/mL CANNABINOID SCREEN URINE Negative NEGATIVE [facility] COCAINE SCREEN URINE Negative NEGATIVE [facility] METHADONE SCREEN URINE Negative NEGATIVE [facility] METHAMPHETAMINES SCREEN URINE Negative NEGATIVE [facility] OPIATE SCREEN URINE Negative NEGATIVE [facility] OXYCODONE SCREEN URINE Negative NEGATIVE NO [facility] PHENCYCLIDINE SCREEN URINE Negative NEGATIVE [facility] TRICYCLIC ANTIDEPRESSANT URINE Negative NEGATIVE [facility] US OB 14+ WEEKS ANATOMY SCAN on 09-10-2024 US OB 14+ WEEKS ANATOMY SCAN TITLE OF EXAM: OB Ultrasound: REASON FOR EXAM: Anatomy. COMPARISON: None. TECHNIQUE: Grayscale and M-mode Doppler imaging is performed. FINDINGS: heart rate: 163 bpm BPD: 4.9 cm HC: 19.1 cm AC: 17.3 cm FL: 3.8 cm GA for sonogram: 21.4 wk (20.0-22.8) Cervix length: 4.2 cm MIKE: 01/11/2025 Weight Estimate: Weight: 469 gm / l lbs, 0 oz (401-538 gm) Hadlock Normal: 517 gm (429-604 gm) Hadlock Wt%: 25% for 22.4 wks Presentation: Breech Transverse Lie: Variable Amniotic Fluid: Subjectively normal. Placental Location: Posterior Distance from Placenta edge to Cervical os: 3.3 cm Cervical Length: 4.2 cm Closed Heart Rate: 163 bpm Anatomy Observed: Lateral Ventricles: Visualized Cerebellum: Visualized Posterior Fossa: Visualized Nose Lips: Visualized Orbits: Visualized 4 Chamber heart: Visualized RVOT/LVOT: Not visualized Diaphragm: Visualized Stomach: Visualized Kidneys: Visualized Abd Cord Insert: Visualized Bladder: Visualized Umbilical Arteries: Visualized 3 Vessel Cord: Visualized Spine: Visualized Extremities: Visualized Gender: Not visualized Comments: Active fetus AUA 21 w 5 d. Suboptimal exam due to maternal size. IMPRESSION: Single live intrauterine gestation estimated 21.4 weeks. This is concordant with the provided clinical dates. Anatomic survey is limited somewhat due to habitus. Visualized structures are unremarkable. Dictated and transcribed 09/11/24/dpd This report has been electronically signed and approved by the interpreting radiologist. Normal Not Available Comment on above: Order Comment: US OB ANATOMY SINGLE W US OB CERVICAL LENGTH Estimated Date of Delivery: 01/11/25 Gestational Age as of 08/08/2024: 22w0d IGP,APTIMA HPV,AGE GDLNon AGE GDLN ACOG TESTING Note . [facility] Comment on above: TESTS RESULT FLAG [facility] REF RANGE LAB Clinician Provided Cytology Information Source.............Cervix Other.............. No. of containers..01 ThinPrep Vial Age Algo ACOG Crystal... - 01 FLAG LEGEND: L-Low Normal,H-High Normal,LL-Alert Low,HH-Alert High <-Panic Low,>-Panic High,A-Abnormal,AA-Critical Abnormal Performed at: 01 =G [facility] [place] [address] Melissa García MD, IGP, RFX APTIMA HPV ASCU Note . [facility] Comment on above: TESTS RESULT FLAG UN ITS REF RANGE LAB DIAGNOSIS: 02 NEGATIVE FOR INTRAEPITHELIAL LESION OR MALIGNANCY. THIS SPECIMEN WAS RESCREENED PART OF OUR HAIRSPRING TRUER PROGRAM. Specimen adequacy: 02 Satisfactory for evaluation. No endocervical component is identified. An endocervical component is not commonly seen in the patient. Performed by: 02 Emilie Frost, Stand Up Comedian ([facility]) QC reviewed by: 02 Lauren Ness, Supervisory Stand Up Comedian ([facility]) . 02 Note: Note 02 The Pap smear is a screening test designed to aid in the detection of premalignant and malignant conditions of the uterine cervix. It is not a diagnostic procedure and should not be used as the sole means of detecting cervical cancer. Both false-positive and false-negative reports do occur. Test Methodology: Note 02 This liquid based ThinPrep(R) pap test was screened with the use of an image guided system. . 02 The HPV DNA reflex criteria were not met with this specimen result therefore, no HPV testing was performed. FLAG LEGEND: L-Low Normal,H-High Normal,LL-Alert Low,HH-Alert High <-Panic Low,>-Panic High,A-Abnormal,AA-Critical Abnormal Performed at: [address] [facility] [address] [place] [address] Melissa García MD, Performed at: =G - [facility] [address], [place] [id number] Financial Services Internship: Melissa García MD, Phone: [phone] Performed at: - [facility] [address], [place] [id number] Financial Services Internship: Melissa García MD, Phone: [phone] [facility]IS (HTRX)on 08-15-2024 ATOPOBIUM VAGINAE 0 [facility] ATOPOBIUM VAGINAE Not detected [facility] BVAB 2,3 (BACTERIAL VAGINOSIS ASSOCIATED BACTERIA 2, 3); MOBILUNCUS SPP 0 [facility] BVAB 2,3 (BACTERIAL VAGINOSIS ASSOCIATED BACTERIA 2, 3); MOBILUNCUS SPP Not detected [facility] SHARON ALBICANS, PARAPSILOSIS, TROPICALIS 0 [facility] SHARON ALBICANS, PARAPSILOSIS, TROPICALIS Not detected [facility] SHARON GLABRATA 0 [facility] SHARON GLABRATA Not detected [facility] SHARON KRUSEI 0 [facility] SHARON KRUSEI Not detected [facility] CHLAMYDIA TRACHOMATIS 0 [facility] CHLAMYDIA TRACHOMATIS Not detected N [facility] GARDNERELLA VAGINALIS 29.341 Abnormal [facility] GARDNERELLA VAGINALIS Detected Abnormal [facility] Interpretation and review of laboratory results Abnormal [facility] MEGASPHAERA (TYPES 1, 2) 0 [facility] MEGASPHAERA (TYPES 1, 2) Not detected [facility] MYCOPLASMA GENITALIUM 0 [facility] MYCOPLASMA GENITALIUM Not detected N [facility] NEISSERIA GONORRHOEAE 0 [facility] NEISSERIA GONORRHOEAE Not detected N [facility] TRICHOMONAS VAGINALIS 0 [facility] TRICHOMONAS VAGINALIS Not detected N [facility] GLUCOSE TOLERANCE 3 HOURon 1 10-11-2023 GLUCOSE TOLERANCE 3 HOUR mg/dL [facility] Comment on above: GLU FAST 83 (<95) Co l: 08/10/24 0708 GLU 1HR 131 (<180) Col: 08/10/24 0812 GLU 2HR 124 (<155) Col: 08/10/24 0912 GLU 3HR 95 (<140) Col: 08/10/24 1013 [facility] Urinalysis macro (dipstick) panel (U)on 08-08-2024 Bilirubin, UA Negative Negative - 4(70) +++ mg/dL [facility] Blood, UA Negative Negative - 50 Osvaldo/mcL [facility] Clarity, UA Clear [facility] Color, UA Yellow [facility] Glucose, UA Negative Negative - 2000(110) ++++ mg/dL [facility] Interpretation and review of laboratory results Normal [facility] Ketones, UA Negative Negative - 160(16) ++++ mg/dL [facility] Leukocytes, UA Negative Negative - 500+++ Edison/mcL [facility] Nitrite, UA Negative Negative - Positive [facility] pH, UA 5.5 5 - 9 [facility] Protein, UA Negative Negative - 2000(20) ++++ mg/dL [facility] Spec Grav, UA 1.02 1 - 1.03 [facility] Urobilinogen, UA 1.0 0.2 - 12 mg/dL [facility] GLUCOSE 1 HOURon 07-31-2024 Glucose [Mass/Vol] 132 mg/dL High NINF - 13 0 mg/dL [facility] Interpretation and review of laboratory results Abnormal [facility] Coding Summaryon 07-16-2024 Coding Summary HTMLBase 64 DnghkaipCPu8mOw+PGhlYW Q+LA4RCIFhE59upNQpqP4e L0YUBCtSPblhLLGFRVtOTm GrvqDgPU0shNVxBWBs IC8+ZI5yREHoEposfJPrq2 W4zXZ4F61tox6jTShnkSR2 CDJrJyXokmaqq5dprAd1LS cuNmluOyBt DUFewG10NIP9hZ67Ib02hR ZraGOua9uwrMd5ReQpTBZq PUI2jVzcECphp1EdAIKwC9 6laZTge4A0 OLTuaMostCRvXzDzrKI9bO 3zMIlqrwgbx4vqnkwhHul3 ev20fRIzc8E8oNX5K6Ivwh I9QPMnvNDs EfqzsWXTiI1jvbqzq9nngi wcHkUnYRVxHIq9TEd0LFRh gRcjCoXcSK33ASC1ETNhdk TuV0LkQFAq bNxpMrT0y6M6Gj0EF1PYMg raN0HBTUMKUCiflAF+PC90 yn13X3MyZeifRhu5LSLaTZ B9tOF8jR9b HJXyLWjhy7I8wZI5M2Hbpz Llwl3yt3nqQAQkEOhwG29f rSNyd6G7SUTroXO9BXIvzC tjMlLfbQ35 Oyc+CFJasXmnh6LpNcshu7 efy4rtfUm5KjfcEMLhnsFz oRnmCUD3a5RdVg4mOTRlaA K8vGY7tD3z XiMnReB0TNdwA370QtEnyO ZuQfzxE92kG5GjkQQ+PHRy Tew7MAThoYqvIT9rH1ZrTX RpbmctbGVm xQbwSP2hKBExlrulXZHeoE 5aAHIaQ2f1GxBiFjA0RGwk T6SoXKTqtzdoJn26xY9wKi KkJtY9PCbd G3XdpkI4ZNRipXJzAXsbTI J1R71xc2B7SSZvANYmQOG2 aGR5rQ0bdYahrxfdoDZhoH sgdmVydGlj KSmzPUtoL588KZJrwCnoBo NvZGluZyBEYXRlOiAgMTEv MTEvMjAyNDwvdGQ+PHRkIH W4hJcjBKLf cFPaRObmEd9czSmduOnlWV 4oXCWvktmdEKYdxC4yYMGn kDLbyGweRZ4qHWEqjlaik3 42NnLpERN0 DNXmlOYsZ0TtcR5lQtSrQU ImSIIhL1OkyTCgJZkkS818 QGzdZbI9EVQoevRzZ9EpHF FsaWduOiB0 c7C9Hx1So9TbofxyI6BuuM IsVyMkEsrfPIi6N3MmVywi dHI+XD47SBVeLL07YWj0IH F3wDudYAoe STYaP3QyyS1vJfBrCTIaMT RkOyc+PHRhYmxlIHdpZHRo PHgnPZXuDjYkuJfwKJ5jRs 9yZGVyLWNv iEyljRWxOiJjb0efMAJgJQ zmVX9soIndW9LfeMM9YZTb p4b9La58K37iZ2ZkgOP+PG YpcXV8ePP3 tP5wJfKlZwV1RJqaK948Zp OdwQNzWderv2lkn8irmXh8 IfS6YYUvcpVujQxtHIH0w8 QnAd29A64k IHdpZHRoPSIxNSUiIHZhbG ggdv0fyW7hCr9+PGNvbCB3 nMR4mD6oHdDvToP5ZBclE0 49InRvcCIv Eqber2lnv7diwAb5KlBaGE WowsGbrBiwIFG1l5JgHw07 V8ZmmIygi8VtHpv9lz36yN Myo7A7uSB8 N3RzLEFbpyoaqCPalSqmVG 3tFITfypmiSXEqsD4rGBBd E1d5FaAjJoH5NTdmS9Shda I6DSGixOLd XDRrzUVRcO4otthzs5zcqm ciEsSiCMXnHXs2XHo2ROKn xKfyBqQwIKT8HdW7TGM8aA VlsG5xfMkj ohmekD2iSqn+XVV8pPAqiL HKXQ4jYwiwlPI+PHRkIHN0 cExaLRpbYDHmgE2iMQXyZ4 l1AoTnKeA8 AOauF7KoeaM1TYCoeJHkYI WifAIDcL8rjgezl3lwhocb XaIgQYBaKAr7OIi2ZRNavN duOiBsZWZ0 LfS7YBV5oRSgbG3rrHnnsw jbnX5jQcj+QmlydGggRGF0 JEx0O7NdMyh8TQRwiHjhTF 0ncGFkZGlu Bx4vsUbvvFpaTB5hRZRzhk snc710SyTzy0csKMScuGFl QCcaZCU6E59zt2I2UEIpLB PrVRX9wSI8 vL3usPzoizavoWCjxQdgpl IynUpsELwnQFzmC646UJAi mLkvNbLpTGz7N3TrPbt0VP RafDqjVP9c kGMfMSbbSv7fdJrwoQxoJU 8uHAJihpidi749NtPcc7gz EJVbkGFbACelGRD7O64jp4 T1JCAsTZPs OLA4qGN4cG7ooBhpnrajxY VmdDsgdmVydGljYWwtYWxp M818FPAkoUiuXgOscCf0A1 KwUsm1BLQk wDjpTA4biGOfNPwhIb8pjJ zulTxvYG5lLKYhlvxvb822 HwFfd2ihTXXmtSBnHEscQH O3R38pg1T4 EKToNGGkAGN8vOL4hF7hxB lnbjogbGVmdDsgdmVydGlj RFcfMHokG720FPOhfAbkNo BhdGllbnQg AFaqRFz2S6TzHzxseXZ+PC 44LJZfAA33hJHfaXDck1ox oSk8NtMmUXAdZXN8sUobSR fyq1MrKVRp J28lbFYsh8S9RVTzsBdliY RyUbIvuNN2qC0vNVlsfxbl d9qowlbxKbkia5empl22kZ 14G53nXLxv ZHRoPSIzMCUiIHZhbGlnbj 6gvC6dWu1+LGTxnST1zJY5 rQ4pQTFcHjZ6MQfrJ748To RvcCIvPjxj z0noe8dwmRp2ZyS9XTUscq FqcGtcPHC0y1MtTe22V00a IHdpZHRoPSIyMCUiIHZhbG gjwi7ouY1e Ii8+SBNdbDH9yPR1sJ0oPf DsAlT3LHynN124YnSpnTXg HxquP15qQ3AcnCW+PHRyPj s3VEGwzCmq OC1dePUxZXrfJt8xJJO8Gs IlOaZgRBgwF2VjNMQqjqem wdqcxSC8OFUvVANyjU07Ps 9udDogMTBw uTQTcM6aqnxna5kodwuqNs VfCABoZNc1XAc3JFDqeWtl VuAuCDI3GgJ3YMV2rMRtjY 1hbGlnbjog vH4gQ1AaUHAbjbliWr87eQ 6iYuQkMnN1ZYpiZws+Q1JB L8NDWpBzHOWJKGDWQsMkDJ lDSEVMTEU8 H4RjTgh3WTOibImxZT3txP LuXJlyZc7ycYcliXnbMJ5i BTTgtdnxXPFslM7dZNTnrV LpuWrnCT8o ZBMhdzvgs236NuWuUCJ4XH PqmLXoU7WdlY0bItLeCMNi HOYeI5IdoWZtUPxyC465XA aoJzT5FDQe bvOjW1RzBMTkwOwtHyQ4i5 S8Fl2jRd3aJF7sXLa7JI44 AD06wZIiy4L8zYX4J1LdPZ Rpbmctcmln mYT4VBPyTGRxgT79gWFtXV iaLx2af2G1m530ECFuLLRq lX13Gh6jhJlfXVCxoSWJzD 0nejklu9dl cmggZwRfRUVxFCt8XGr8TQ AntEzrNkCzTZF0LpQ7BKI1 rMGvkW4mpSewomgptX6gBb c+MjYgWWVh kxM6S4KsYhf6NUJuqMrePR 7wySRpCVttLe8weYamyApy HL4aQNNgpusgNIFdlV1gGY JvdHRvbTog RD0uNINucecls866IpVkGF I6FPCoyDUfY7AouC2nXdRq BQBtITVnO9HdzZFeMGwwF6 80LKjcNfL6 TGNzexKnI2IdFJLnbHpdXn N8v4I4Ro3AWF0TROR6R2Pz Brz5RIToaEdfGQ2ypLNkGE vjFy4deEjp xDkaUG5bWVYyojjeLREkgV 9pCGVpzJYouIudZW2rQGRx akujv927UdFuSOT7VQNjiT WjN3LnkN2x EtUoBIGgOKQwG2FxfETsRG uwY047LUavLcU1HFSwpaPq C1OrBUKeqNwcEgS6a3U5Yw 5PUDwvdGQ+ RX32kf70G2DkAxwuPky4IH SxMYS9iUG6qY2eROHfOMjc o5A3fQI3F2HrelVvbj8be0 xsYXBzZTog O53eiRMjl4H9VLGzuTZ1ZV WfsSxcJfPznP96Lfw+PGNv jObtv5HfJonnz3pzd7pwcR g5BkNdULGc clCknUscIKC7y4FlIf20I6 9sIHdpZHRoPSIzMCUiIHZh yVdbeg9iuH8gQq8+PGNvbC Y0dOH9gO6i AdUbOpY5UVysI865FjPovY IzKugqo6div0hlnDy6QmCl WPWyfyZstRjtKOD7c3RpAj 60F3KpdPsy o2MoCen1ej25lOMfu7K3fM Q8Z7MyALIkrhgueIGzjXoe BT3rOWFpcvswOGPnaQ5uVZ HcS6x2JnKb AnA1NGziV6LnqvA5PJZatG SmPKAkkCKAyO6ytlaxk7pc juycBwJrSMOkZZp7CEd2JJ FsaWduOiBs KQS1CzI7EMV2yLQchU2gvI acebiweM2mHlw+MIq3x1gu bJSpGG9hbNG7XR18VB28yY Fxi9J7jCV3 N9ZpHORnvflqhqzmaUV2QM ZsWJGdiZ41My1ocGxoXe5r XBOjCRV0OHRwkYXrV6KzrS 9yOiAjMDAw QVZcK8RizHRfIKcfI359OW spVxT9LSEmioWkH4CzQTFq jSbwWpS4w3G8Ar9OVO91NF 25CV24eTZz f7B6oOM3Y2QjNGUsmiqjeh cpgFC1MPSoLETxeH61Cn4e wZlmTl9aFGNfJFZ3NRImaJ WxY6HkkY0z QqCoYOUdYSCrU5NqbXShHX ilX555KDtfXxO5ZDGyogOt P7LyIPOfjWmhJdX1r6T8Hh 4JJh59AT40 QX92uQQsj8Z4fEV4Y7EpUY CmhanknrxuaUP8OCZjDGLm jS60Ag6tbElxCf9tZUOyFG H4JXUtxDBj N0OuoS1nMlGuHPBdLJLhO0 IsjLChASvwT550BWveXoU9 SMVhcwAmP2EpZUUwnGpvYf Q7z5I0We5O BOvkwku5N0PsJkzfrDE+PC 61LREuWW42nGBzlTVno7bo bPp2ZaSmSNMnVAF9nJfqRB tbm2BsPSHt Y29 (more content not included)... Normal [facility] Urinalysis macro (dipstick) panel (U)on 07-10-2024 Bilirubin, UA Negative Negative - 4(70) +++ mg/dL [facility] Blood, UA Negative Negative - 50 Osvaldo/mcL [facility] Clarity, UA Clear [facility] Color, UA Yellow [facility] Glucose, UA Negative Negative - 1999(110) ++++ mg/dL [facility] Interpretation and review of laboratory results Abnormal [facility] Ketones, UA Negative Negative - 160(16) ++++ mg/dL [facility] Leukocytes, UA Positive Negative - 500+++ Edison/mcL [facility] Comment on above: small Nitrite, UA Negative Negative - Positive [facility] pH, UA 7 5 - 9 [facility] Protein, UA Negative Negative - 1999(20) ++++ mg/dL [facility] Spec Grav, UA 1.025 1 - 1.03 [facility] Urobilinogen, UA 1.0 0.2 - 12 mg/dL [facility] ED Clinical Summaryon 2023 ED Clinical Summary [facility] ? Urgent Care [address] [place] [address] Clinical Summary PERSON INFORMATION Name: SHERLY ASTUDILLO Age: 24 Years Sex: FEMALE : 2000 MRN: Acct#: Visit Reason: Vaginal discharge; VAGINAL ITCHING/DISCHARGE Arrival: 07/05/2024 10:15:34 Discharge: 07/05/2024 10:59:00 LOS: 000 00:44 Check In: 07/05/2024 10:15:34 Checkout: 07/05/2024 10:59:00 Address: [address] [place], [place] [id number] PCP: Anthony Gomez MD PROVIDER INFORMATION Provider [...] Location: Home PATIENT EDUCATION INFORMATION Instructions: Vaginitis, Wpop-yo-Tszo Follow-Up: With: Address: When: Anthony Gomez [address] [place] [address] Business (1) Within 5 to 7 days With: Address: When: COLE KEMPZIO [address] [place] [address] Business (1) Within 1 to 2 days DIAGNOSIS: Vaginitis Patient Understands: Yes - Patient/family/caregiv er verbalizes understanding of instructions given Comment: Normal [facility] ED Patient Summaryon 024 ED Patient Summary [facility] ? Urgent Care [address] [place] [address] PATIENT DISCHARGE INSTRUCTIONS Patient Information Name: SHERLY ASTUDILLO Age: 24 Years Date of : 2000 Reason For Visit: Vaginal discharge; VAGINAL ITCHING/DISCHARGE Arrival Time: 07/05/2024 10:15:34 Primary Care Physician: Anthony Gomez MD Attending Physician: Spenser Fang Comment: Patient Education With: Address: When: Anthony Gomez [address] [place] [address] Business (1) Within 5 to 7 days With: Address: When: COLE ALONSO [address] [place] [address] Business (1) Within 1 to 2 days [...] and use condoms. General instructions ? Take tugj-ert-wgcrsda and prescription medicines only as told by [...] provider. Document Revised: 02/19/2021 Document Reviewed: 02/19/2021 [employer] Patient Education ? 2023 [employer] Medication Information: The exam and treatment you received today in the [facility] Emergency Department were for an urgent problem and are not intended as complete care. It is important for you to follow up with a doctor, nurse practitioner, or physician?s assistant director of residence life for ongoing care. If your symptoms become worse or you do not improve as expected and you are unable to reach your usual health care provider, you should return to the Emergency Department, we are available 24 hours a day. For those (more content not included)... Normal [facility] Urgent Care Note- Provideron 07-05-2024 Urgent Care Note- Provider Patient: SHERLY ASTUDILLO Age: 24 years Sex: FEMALE : [...] History Medical history: Resolved Ankle fracture, left ([id number]): Resolved. Ankle impingement syndrome ([id number]): Resolved.. Surgical history: Cholecystectomy ([id number]).. Family history: Anxiety Father Sister Diabetes mellitus [...] Martinez RN 05/28/2024 Alcohol Use: Current Comment: Gillian - 11/19/2023 09:Marisela Morfin RN Employment/School 10/28/2021 Status: Employed Exercise 12/01/2021 Exercise type: Walking Comment: 1-2 times a month - 12/01/2021 10:44 - [employer] Home/Environment 10/28/2021 Lives with: Roomate(s)/Friend(s), Significant other Home equipment: crutches Nutrition/Health 10/28/2021 Caffeine intake amount: 2 cups daily Sexual 12/01/2021 Sexually active: Yes Substance Use 05/28/2024 Substance use: Current Comment: Gillian - 11/19/2023 09:33 Marisela Puri RN 05/28/2024 [...] Making I discussed with patient with NITISH Lundy at Dr. Alonso's office. She recommended Terconazole daily for 1 week. I offered to do a vaginal exam with swabs and/or heart tones and NITISH Lundy defers these things and patient agrees. They offer to see her in follow-up next week. Return with new, or worsening symptoms, or symptoms failing to improve as expected and the patient voiced their understanding. Questions answered. Follow-up with their family doctor a (more content not included)... Normal [facility] Urgent Care [address] Urgent Care Record [facility] ? Urgent Care [address] [place] [address] PATIENT DISCHARGE INSTRUCTIONS Patient Information Name: SHERLY ASTUDILLO Age: 24 Years Date of : 2000 Reason For Visit: Vaginal discharge; VAGINAL ITCHING/DISCHARGE Arrival Time: 07/05/2024 10:15:34 Primary Care Physician: Anthony Gomez MD Attending Physician: Spenser Fang Comment: Visit Diagnosis: Diagnoses This Visit Vaginal discharge ([id number]) Vaginitis (N76.0) If you received any narcotics, [...] documents With: Address: When: Anthony Gomez [address] [place] [address] Business (1) Within 5 to 7 days With: Address: When: COLE ALONSO [address] [place] [address] Business (1) Within 1 to 2 days Medication Information: The exam and treatment you received today in the [facility] were for an urgent problem and are not intended as complete care. It is important for you to follow up with a doctor, nurse practitioner, or physician?s assistant director of residence life for ongoing care. If your symptoms become [...] so we can reach you if necessary. [facility] has provided you with a complete list of medications post discharge. Please inform your hazardous materials tanker driver/provider of your visit and for further instruction on these medications. Any specific questions regarding your chronic medications and dosages should be discussed with your primary care physician(s) and/or pharmacist. New Medications FOR[facility]LY [facility] [id number], [address], [place] [id number], [phone] terconazole topical (terconazole 0.4% vaginal cream) 1 [...] Eating food (more content not included)... Normal [facility] ALL CBC WITH AUTO DIFFon BASOPHILS ABSOLUTE AUTO 0 N [facility] Basophils/100 WBC (Bld) 0.3 % 0.2 - 2.0 % [facility] Eosinophils/100 WBC (Bld) 1.2 % 0.9 - 7.0 % [facility] Erythrocyte distribution width (RBC) [Ratio] 12.9 % 11.0 - 15.0 % [facility] Hematocrit (Bld) [Volume fraction] 40.3 % 36.0 - 48.0 % [facility] Hemoglobin (Bld) [Mass/Vol] 13.7 g/dL 12.0 - 16.0 g/dL [facility] IMMATURE GRANULOCYTES ABS AUTO 0.06 High [facility] Immature granulocytes/100 WBC (Bld) 0.5 % 0.0 - 0.5 % [facility] Interpretation and review of laboratory results Abnormal [facility] LYMPHOCYTES ABSOLUTE AUTO 2.5 [facility] Lymphocytes/100 WBC (Bld) 21.2 % 20.5 - 60.0 % [facility] MCH (RBC) [Entitic mass] 29 pg 26. 7 - 34.0 pg [facility] MCHC (RBC) [Mass/Vol] 34 g/dL 29.9 - 35.2 g/dL [facility] MCV (RBC) [Entitic vol] 85.2 fL 81.0 - 99.0 fL [facility] MONOCYTES ABSOLUTE AUTO 0.[address] [facility] Monocytes/100 WBC (Bld) 3.3 % 1.7 - 12.0 % [facility] NEUTROPHILS ABSOLUTE AUTO 8.7 High [facility] Neutrophils/100 WBC (Bld) 73.5 % 43.0 - 75.0 % [facility] Platelet mean volume (Bld) [Entitic vol] 9.5 fL 9.5 - 13.5 fL [facility] TBH EO # 0.1 [facility]H PLT [address] [facility] RBC 4.73 [facility] TB WBC 11.8 High [facility] Outside Recordson 06-11-2024 Outside Records [id number]. [facility] Summaryon 06-08-2024 Coding Summary HTMLBase 64 XdxlwplqATb5xLc+PGhlYW Q+QU3KQOKgI61ifLVdkD6k H8ZEMLcPGiymFCURRHjXLq AvfbMzKK9mzHLuMYZf IC8+JT8lQZPpKvbaaNDym6 E2iNA2U96ojl5uKIzptAC8 WXAqElKfrgbrt8tubRy6NV cuNmluOyBt INNgrR70IAT6tT13Ah12vO ThvLGlj6izfVl7MrMaAVDt IPR0wTapGBime7LsJBLhS1 4ljFDxt2C3 ATQbfYseaDHdIyXwgFU0jQ 7cMLcjnvdho6hbrokkMyq9 zb61dICnp9J5oQK0U4Brtb X1LMCxkQEd ZbvrmMVWuL9pdbnmx5xmrx xtZhJiRCBeWKf8LNh5SSJv eCydCdImXG05ZIY2GWUsmz DyA3EgUPTy vGgxPiN3g7I0Zp5QI0CCFh uiP7STZEICWWalzYM+PC90 po25I7NpJjrdQcn1HKCvIH M7hQF5lY1r BGHjIBroa2V6qCU5I6Augz Tgof0zr3riCTHfCNrcR09l fECsb7E0CALvrEP4KFJlqC nnDxQzaR69 Oyc+BFHflAuff9GnGjoga3 fkk1wosSx9IdqcLBUsioGh aEtkLDW6z3NyHk0nHKRdaL B7mOM8lX9d KxOmLxJ0ACldC950IxKrkF BqKihxA84yC5JdzCS+PHRy Stl6NUByuAodLT5eQ0GsYQ RpbmctbGVm sTogKC0gYTVsnqpfIERnfO 4pXEBbA7f7QvNdEmC9YOqy N7RuQZBzsfxtYy18yX9mZw RjXgX1NXjd B9QrdfN2OKByqLNbOEslQS I8K25yo2A4EPCfRXUvZYC2 jXI3sA8zqMqrdzkaaATgxH sgdmVydGlj WOrcCXnrO102MKUyjInpQr NvZGluZyBEYXRlOiAgMTAv MDQvMjAyNDwvdGQ+PHRkIH J9aHdyPUIt lJTtIPyvBa1ggVqnfPexAV 3oHNKlhngsENPmhN7kQKZe aIXjcOtdPL2lCPQanehje4 32ZpJcACN0 BXDprWQgK0NxfU6jDeGpSY WqKTVgP7BijMKxNPlmJ218 XJfyBeC9JUVxleXnG0OlRL FsaWduOiB0 d1A9Lf0Fi3QixbvtJ4BexK XhBwYpTuwhKRo1T0ImDoam dHI+JV24VEGmXM18PAa8QP F1oJtoATyf BUPfA5VemS5zOwLrZSQbFT RkOyc+PHRhYmxlIHdpZHRo ZOuwQWYxIzYakDyeHA3bNl 9yZGVyLWNv uGoawQUeWuZkd1zwWHNiYS kdFV0hpZgpK0YjvOM6WJQa w3t5Zt26S86lS3VkjGZ+PG XzlMB0hWT1 uO0pZeFtFkK6REkmM866Rh JzpQRbZhcqp0cqw2tacAi4 VpW3PVRzviVuuZswWZR8h0 XwVr67D58b IHdpZHRoPSIxNSUiIHZhbG epax3lkL5aId1+PGNvbCB3 oRC3nQ0wWmYiRuH0FTrlV4 49InRvcCIv Rrpba3cyi6kekBj4UgHyOM UfacChjHrfBPU4k0IzBc50 H1CzeKrjr3QsPxd6wz65vL Rez8B2gAZ3 P6DeCEZftiwgsSDokFvpRP 3nCBCydlfsUNWvkP3qFBCe L9b0AsPdEbW7HQgvO4Pejb X4AIZghZVi EBTxeFSEqY3sereyj2ljvr cpGbWdOOPsOPy7OAt8NNXw lXjnNlGeKRZ7CxD7PVQ4gB BclG6vbUgf vvxyiL0kWyb+FCR8dFMjxF XRQH5kMstqeGL+PHRkIHN0 lAcsMBazFVAbkZ4kTDBgV7 u1JmMcOvU4 QZeeJ7EjkmV9ONPtmCJkZL TgbIHWvV2tyflhv9bhosms SoYePQSgQGb8QZs6SLDiaT duOiBsZWZ0 VcT3TMJ2tDCbqK5wpTawqk jltN5cXne+QmlydGggRGF0 WIq2M6JpMaw4KZUxmPicBP 0ncGFkZGlu Pg5axMcomFcuDG3yXYVouo mvv427GgWuq7htUANopWSt ELayWKR1D33vo7W2RRIdEV AjCYZ4aHB5 kR6zjLikqyjfeGNyhImjvk XguAtyVDluWRamI975ULPo bSadDzKkUWu0G4IvDvp1HD RefTyoSC1j yVLoFIyzJh8jvSlleNgrOP 6zVYFsxztaq511PtEqx8bp CDYnmKKuNRxpNUD4E40dd3 T6ZXQxLKUg SBR9jDV6bD5rbRgbtnxouL VmdDsgdmVydGljYWwtYWxp G393ZCVlpFpgExAakOj2Q4 UhWtw8LCWo nVhwKA3mjHTzUWosWx2wmB njePlvCC7eZIKatzixl667 XbMli3hxHRPtvQLbOEapDU R3M04uq1P0 OZUyJTLsVFL6zDW0sB2tkO lnbjogbGVmdDsgdmVydGlj EKbrTUdbO599BESvpKaoKi BhdGllbnQg XRojCZf0V1MnAllteGO+PC 14YYWpEW98tWTnvKIep2ys wHm9LeEbBSIlUXZ7rKzuSE dpq6NdONEz F10jdIYab6Z1EZUxvBxmiV LvByIafBF2rC6eXBznimzt z4dkrfwpHmlkd5txao85vE 05C57aUToe ZHRoPSIzMCUiIHZhbGlnbj 5kcU1oVe8+FVUwcKS3mLA4 pC8tWAZmQcH9AMjzE007Vi RvcCIvPjxj s3pws2chcCw8AhC9QTQlek PwbQvxHBL3z8WqRx71B34g IHdpZHRoPSIyMCUiIHZhbG jekg6stS0t Ii8+MHDtgXP3qLM7cF1hBj EyMmB1FLzpN426MoMjgYVw GpfbY28vY5BvoDA+PHRyPj v1IRTgtBpl HK6ajLEcVOxhQk0qNOO5Ds ZfIpYpVLxpI3LnACRpadyc zqkkeLM6KVGkJHRxkY00Nd 9udDogMTBw oKPSpH1rrzpmg7medfkuJh BnZDRnIXz6NKz7JQXexQgv JfBoHNR3RyU6MRR6wMWlmH 1hbGlnbjog pJ1zF5XyUFBbfwhfUc14fX 9lXhFwVdJ9SRzjLsg+Q1JB Z2XSGcGzMSFVFDGVKdIzTS lDSEVMTEU8 L3FpJgd0JDKfcJucFD0gwT TlLUwsPf9kbMhooCenLG0c KKUgauobNJLvnT0nNQZbxN UtlWjgDN1f FEWvsqxpg566WsBwWXD1VW YawZSqZ2PfuA7lWdJoSKBj HVKaO2GxlUQoWUmyW410SI skVmV4WGWl giDeP8VqNEJerTyeVbA9a8 A5Li7oFb5sEW0hSOx7ON67 JY42aXDuo0X6eDK2L5NvDX Rpbmctcmln bGO0EVOtCNPyaH08hQQtGB flNs5uf9V4q786MZUrJHFo iL91Vx3roBnbFFJgeIJReZ 4jssrsx9ed kexoXlGbSTDoUNo6AQn4YA BwxJgtMrMdXGK0WlF4MYV4 xCGhbO3ecNapettorG6rXl c+MjYgWWVh jmP5O1RtWuz1MUYzeYhuPL 4quNMcUNgtUe6wwRqbpZjc WI5dOKCefkqrSDGmnD6dEC JvdHRvbTog XJ9xVRYtfdvij162CcKhVU W0NYIynFHwW9GybY2tUwUl CSHqQAPeZ1YrfQCwLSzcJ1 99XRakLlB0 WIZsefBnN9FsVEQxvRbmNo M2a7P9Qe7FGZ8RPDE6V9Yd Yid4QRQkhNsgXD6hwUKeTO gpGp1xmMuj vIksMD0hAJIbrmotRWFrvS 6cKOXnwFLxvTmpIH4qKWHf pwegm184XeXhUOA0FPSjiJ ZnA5PnhJ2k TrByLEDnKNZiV2HecYSbWT exR450YXrkFiX4JMLlcdLr M9VxLNTtkRezThS3x5R2Zj 6LfCLhQ0Xj N4c7E5ZkDcfujHQ+PC90YW LuCE02pBXuzWJrj5rrpZk0 NaNqZAYpYJS1gLpvVXncw8 XtQUBtI64k iTHop4K4OESgaCrcyPGkGu IpdKY3qT5gCEdrrbdsw6gk cfclGpyaa1slmx70qL12Y5 9sIHdpZHRo RGSzQLVeFOIioTzjxp6ijS 9wIi8+COTtpOF2vRH0nW6h IaYcNfM3LUipS045SyKueH FiBfbmg4rl m6yqnJd0AdTzQGFxzvRisX xcDBC7z9DcDt76U28dMZxl ZHRoPSIyMCUiIHZhbGlnbj 1niB1pBl6+ AU0za6eyfh17hW03xXQ+PH LbRYL3fVcaRQxlYFKqmL8g ASgpKvO7HULkNpHwqD95vZ ZeNBtpAy8i uHiwqUxdQF1fWZBxierel2 76DiMqi3ukPMZmmFCsUCdm KHK5R21du3R2RJYmGGIcDN G8eCY4uE5f bGlnbjogbGVmdDsgdmVydG pkCFsoRXrkS120IVKlsAgg DfUbhDMaN8dzosMENP6bEf wvdGQ+PHRk FFA0mYcvFTccEHGseC8sRD OsU1r1InNtJzO3XZtxL2Ms cyB5FVNdcFYuWCQctMYXfG 8lqgxnd6qo ogbvLvTiFCJaLCo5KPc0QW EprJtyRoAuMFL3KsO4GDN6 jSWvkB1gbQkofkyznB2eZu c+RklOOjwv dGQ+FGZhVAB5uWdjKJgkWB FpmL2pDNEtY6r2NpDtAtG6 CUdjC0DrzzI3PJLfuMFiLV QkfDWKiB3u kdyvr1uwoamtHoIiVNBuJY k2ABk4WRXtzHlrKlFgGIB0 JsM1BHB2hFQztS6jhGcjal pygH5jMuy+ TVJOOjwvdGQ+IBXdGPP1oD mxQUssWCZceG5hBNVbL4x8 YhSeVdS4BHkfC4XtyoC7AD JvbGQgMTBw vCMEcW0kwslar2ovcpojCg PlRYMjIGb4DMs2OBSobXzi XbLpASN8QiY7KVD4iMHgwA 1hbGlnbjog bC0wDsn+LWZ7RPD7EA68OQ 75D2UgUxuceGDgjYL+PHRh YmxlIHdpZHRoPScxMDAlJy BdoAkvRU6t Ym9 (more content not included)... Normal [facility] HCG ( test) Ql (U)o n 06-07-2024 Interpretation and review of laboratory results Abnormal [facility] Healthcare Preg Test, Ur Positive [facility] Urinalysis macro (dipstick) panel (U)on 06-07-2024 Bilirubin, UA Negative Negative - 4(70) +++ mg/dL [facility] Blood, UA Negative Negative - 50 Osvaldo/mcL [facility] Clarity, UA Clear [facility] Color, UA Yellow [facility] Glucose, UA Negative Negative - 1999(110) ++++ mg/dL [facility] Interpretation and review of laboratory results Abnormal [facility] Ketones, UA Negative Negative - 160(16) ++++ mg/dL [facility] Leukocytes, UA Trace Negative - 500+++ Edison/mcL [facility] Nitrite, UA Negative Negative - Positive [facility] pH, UA 7.5 5 - 9 [facility] Protein, UA Negative Negative - 1999(20) ++++ mg/dL [facility] Spec Grav, UA 1.020 1 - 1.03 [facility] Urobilinogen, UA 0.2 0.2 - 12 mg/dL [facility] Coding Summaryon 06-05-2024 Coding Summary HTMLBase 64 AlrcomzhNWv3cWk+PGhlYW Q+YJ3QFVVuD58vpUUghN2z L8UKKAkDYmyuTEZNQDsPDn AbjhQjEE4obEMgIDVa IC8+VA9pNAIvIgsniOMjo0 E3eAL1I64esd1dZFlaxWZ2 YFDcEqBweivqa7zrkAo6NA cuNmluOyBt XRYszH18VQJ8zL47Xp30gH EknSBqn4zshIn7ZwCySWFl IWW3mXrmUBhvs3ObPRQcB2 3pyBOjp6P1 TKHmeOsanNVoImUuaHD9mI 9jKYqkewatp1stpskwMay1 tu21kURoo0V2eXO9J6Xfjs E0YONxaWZj SwnvzWGLgX5smguuj9zzdb ctMeJyAKReXOq5FVl5CIZj sJdxEsIsDF42OZD1KFLuwj DfM6FoRIQf jTnjXqM1k9C3Uu8CS0SHAa czM9GEGNAGNWpffAV+PC90 no89K6OlIjoaFtk4SPKeJE F5xQK9eF1n VBOcDAhmb3C0cNL4T7Zdik Veen6oj4nyEOFwBDcfC88t yUHbt4R6ENRjiYA2ZAQcjD knJnPepT56 Oyc+VDShpDzjw0QkRbiis8 cou2lezWo1GapjTWEzdpRj yHpgQIT1r4EyGx7eBTSzyA E4uZR1aL4g OvCbFfD4BCvzG717EfKuwO UlLjbqN92eD5JedEQ+PHRy Osi7ORKfmMduDR2fT1AxKY RpbmctbGVm tYhcPU4yARNspngnRPAkmW 1zIQLfQ2e6RuElCaB4HYqe K9IzDVLurxmqBr11dX3wCj ZfZkN2JPmp I4YpxxV9TMUmeLUcFZazYQ B5M79py2N0XEHpKQFzPZR2 jKS4iT1ojNpfkhxjmGObjW sgdmVydGlj SNykQJagS094DWFygAipMh NvZGluZyBEYXRlOiAgMTAv MDEvMjAyNDwvdGQ+PHRkIH K4wWfuBYXf yKHxYPuiMq9vpUjvcPrfUZ 4yBOUzyfvaWLVjuC6cNIGy dMLlsZffKO9eFWToopzwr6 88PqFePOW2 YBWirJKpO5KcbW8mNtPkLO AwWDNbD2EgbSUhMBhgN242 ARwcIkM2YUTffqLdO5YeCM FsaWduOiB0 i9M2Rn4Zh5RnjriaS7BwoS EaPdAdKjujAVt5Z1PuOcts dHI+LH66GFDkLF97HJi0ZD Q0lBfeHKxo OECvS6DyuO8rBhGoUZKrBZ RkOyc+PHRhYmxlIHdpZHRo KTvyRGVwFiFfxVstAI9xWs 9yZGVyLWNv xOexkWVbEfGsi0sxQJWcFR qcUG1pcJvdX8HuhNW6RHKb u6f9Os12A82gO3JxwJG+PG XyeSG3iDP4 mQ6lJpCsCmX3XQzbA883Lo KpzBFiJtife8jru9cbmEb0 XhR8MAFmwhJtlPthCFH9o0 QrKo76D63i IHdpZHRoPSIxNSUiIHZhbG gsyt6ffZ3gGl5+PGNvbCB3 kTG0aN3jJnGnMbC9PKnmH9 49InRvcCIv Xykcc1crq0ebqJr3DmGxKJ DixoUlcYhbZDK6u3BgUs09 T5BriBfof1DrPes6td35mN Uvv1O9lJV0 P8GuBCNdqngeiYHviEmbGB 5oHRAzzhtzQLOviF5zZPAv F0v6OlDfIxN1EZboY1Bbqa G0XQIanYNr KGYeaNLAmU2cvsmnw9gpic ipBqEeBLSuDCw8QUq7YRIk wVcxIcDkRNI4SqH3RAX6wT EjgS1axJnq tfzokR0oFrs+LUJ5wPGinY RNPT6gJhgccVL+PHRkIHN0 wFrsPGuiWVRjyN1eFWIwZ8 f4ZuYdVmY3 ASslT9BhehF2HOSkgLApHN IgcYVVzF2ishcfk8lwwmpx RtToSTKeMXg0YWx8VWGcdC duOiBsZWZ0 GzG5YOK1qSNasY6nqFyjuc kpiA9iOde+QmlydGggRGF0 BOx9X6IrTph5IQCmkWjuRT 0ncGFkZGlu Ro3ehXtxmAztFM1aWRDvfj zhf331HjKnz8ktQJKuvPQk BCpnCPR8Y94fw2H6ALWfCF EbFUN7oAI7 oP5xyZwacaysmSCuoCxfsr QctRutYInrOXimA760FTKo cSioGuJhJKk8M0IaUxv1ZF AipOcsPU3r dTBdQTcrQw3myCufcIzqPI 1rPEQfemddb170QfPll4wo QNRurGDaQGfgLKC6N21kr9 D6IWHoUMDl XIY2bJG5jS3vjAbpmfasmR VmdDsgdmVydGljYWwtYWxp P324XAHkbHqaIrCcyAc8J1 WuXzp7ASSt dUgyLY2jjUFvRDelPp5xbT kdiZfzIT0lQIMrmdcey451 BzRrs8gpCVAclGIqBMlyKO Z5Q01tk5G3 RGYnPCElUOF2eFD8dX0lpZ lnbjogbGVmdDsgdmVydGlj GGixQIjzA208POVpeBgxWo BhdGllbnQg ZOevFEn0A3QuVtqyaDG+PC 20QPXzPI41jBIpfUCbh8af bGd5JiPnYCFkGXJ9mNysKL upo6YwDGEn E99ddCUuy7J9PKRswJrziM ExRmVhcMN2jB7eZGfxzoet m1jyzhfuSgnhw0kjwl29vV 16V32wDCnc ZHRoPSIzMCUiIHZhbGlnbj 0xeL8pOo9+ICJbqJM2dFT4 tR6oJWZyNqJ0SKasR587Md RvcCIvPjxj k5vng7bqfMw4UnP2POCvib JrdCzfSEP5o6GnCj28T34w IHdpZHRoPSIyMCUiIHZhbG fsfh0chB0g Ii8+YZOadKB3iZV8sY1gRf NqTkC2ODcfJ773KnSwzTIe NykvP81vK8NmsCT+PHRyPj i0SUXwfWhj IW2npKDySHumGl1bTAD2Kl LuDpImALlqQ8HyKDJtzvdp lahduTZ2TESrLGPvuQ25Ur 9udDogMTBw tNVNoL4depviq0wluqkeRm FvAGWlWWg5MAf2ZQBmaMfn JaBhRSQ5NtE9TBS0tCIesC 1hbGlnbjog cR9mP9TrGMTeiernHb12tI 6lGvKqQvM0LOpaThm+Q1JB O0NOTbImLSAFKKOJZsVhFQ lDSEVMTEU8 A8PcPmr4LXRucFxhDO9syJ LkHWqiPe5jzYtdfLllUL3m NEZgmjuaDDWhyH7qPHLcjV KhiQfiWA0u EQTadwtty908HoYeVUG0QW ZhzMBjG1WybB7fWrUwPSYj EPCwD8KrmERpHKnxX118LQ lxMtM1OLRe nvUqN0NnYVLukJrhFbJ3s0 Z3Pp9uCf5rEW5oPOd2NP10 XG40nYFmp7K3nKS4L7AwBV Rpbmctcmln zAI6MCCtUKIhaL82gRAkUD qbFr4ep9Y5u770DCBgZXUk bR12Hx8ntZqmHZWxpQGBkA 3mmsalr4zl mbnpWsIhMXVdASy8KXv8OK XpyKorJkHzPWJ9LvT7REB3 vBUstJ2owUuazkedfA7jEk c+MjYgWWVh itN7G1UnXil2HXMnyLahIU 4fkMFeYNosCf9ncSknrVrq TI5pEIDwmzgiXYYnqN7oCF JvdHRvbTog QH2oVOSnkrdne113OaCpCJ B3THHbwLKdP9YzjE1gFsMx CTUrBNHeN2SfeUNuMVckS4 58KNtqSxE9 YCEvefKvA0RoISJkgPdoVz C7n6V7Yz0GIL3HOQC6U2Ou Lee1HRFcvTskAD5pqXBhDS ujGx8cyDsv sRawNX3rZSGxsczbGDErnR 0sFGRnsPNkqWqjKI0yBJYm pucjp642CiHqKJK8NPEeaA YzE6TurW2l VcEuNCGpRUPpK6XhtSFiUG qvW879IQvqHoJ2KBDglfYb P9HmWCNbqWieHgJ6a4N1Ro 5PUDwvdGQ+ XZ23vj45Q6WhHuknIed2XO IeVSK9rBQ7nO4fJNJcNCsr p3J7kOM2P5KwasRybc5yx9 xsYXBzZTog L77ewSGrp7E0NYPmpQP1SU KooRoiNoPpmI78Rzx+PGNv xYwvo1ZgVcqkg7oiz1pneK v3CsSxXQQu dyYbhJfaFNE8i0CwIh70O0 9sIHdpZHRoPSIzMCUiIHZh eQjcge5fxY9rMa4+PGNvbC W0sXB0hM9e DaIwOaK5ISewL847MxCmqA NoJdibc8mer5kvmGx1DlFk QJNbsrLtpOzoGIG4e6WcBq 13R3BtaSye n2OyPdx2us78pQXqb7I1lA W6P6RiQHYphhtkmSPohRrd TB4wWALuguthRQAeoJ7iPV XqR2n5ZiLa OkS9XUuqZ2MbhvL0NBTnnV WsMRWlnMVUvP8knjuws0so mnzuIzQiXWEzDYr1JSo7BP FsaWduOiBs IRF3LbX7ZWO4hQRwtF5btL cngbglnF2wJsu+XPx1w4ot rOGuFE1hgIX8WN30VH79hX Acc0C7kEI9 N3DhHHUkfullrojfpBP8HB GrXVXseZ69Ta7vvMxtSi8o XQIzYEK6DUTfhEKwA7ApeX 9yOiAjMDAw CZHeL7RqcVTcNPqkS840EZ cbBhQ1HQPikkGjT3VjEVDb dAqnGkJ2p9O6Vd3CJU05WU 68IR60zTAn j5T9pFY9R5BzKOUmuqmsxi obkAO3ECHxQKBxaE50Mk4e vJanWp1cFWHrPDG2FSPvnO WrN9QrkT5e QrPkLEEsGFZkX4QujCXtYZ dcB769FTsqRlW1AWOrdvOb O7ZhYGLruYfwQbK2d6Q2Lw 7LAq16NN24 IL69gYGdr1M2uXD7A7AaSS UpaakhlojfbBJ0YELhCFGs zD06Sh4nnCzzDp0mIMOoVB K6ZEIfvUSp K9ZsvZ6zJmQwBJEdRWRxG6 WhgXDwPDafM709IMooRdS4 NWFdnwVxU6MxITLbzKpmQg Z6x8K4Qz4X XNceyhu1Y1LnXnejhFI+PC 06XAFkRA02tOBlaDSbi7yg mCk2YwVvBFAbEQP5hFoqGR ryu0PvPVJu Y29 (more content not included)... Normal [facility] Office/Clinic Noteon 024 Office/Clinic Note Patient: SHERLY ASTUDILLO Age: 24 years Sex: FEMALE : [...] 113.040 kg Body Mass Index 39.11 kg/m2 [place] Body Weight Calculated 61.437 kg BSA Measured 2.31 m2 General: Alert and oriented, No acute distress. Musculoskeletal: Positive point tenderness over the left gluteal region as compared to the right. Positive straight leg raise. Positive piriformis muscle sign with external rotation of the hip with adduction towards the opposite shoulder.. Impression and Plan Diagnosis Sciatica of left side ([id number]-IO M54.32). Plan: Discussed with patient stretches she can do to help with her sciatica. They were demonstrated in the office. Will hold off on any steroids.. Orders Orders Evaluation and Management: [id number] Office visit - established pt, Level 3 (Order): 06/01/2024 13:28 EDT, Qty: 1, Sciatica of left side. [Electronically Signed on: 06/01/2024 13:56 EDT] Anthony Gomez MD [Verified on: 06/01/2024 13:56 EDT] Jason MCNEAL, Anthony Santo Normal [facility] .Auto Diff 05-28-2024 Auto Saunders % 5 % Normal 1-12 [facility] Comment on above: Performed By: #### 1 [id number], 2133229, 1938489, [id number] #### [facility] (DEFAULT) [address] [place] [address] 43281 Baso Abs# 0.1 x10 Normal 0.0-0.2 [facility] Comment on above: Performed By: #### 1 [id number], 0172582, 6796353, [id number] #### [facility] (DEFAULT) [address] [place] [address] 95859 Basophils/100 WBC (Bld) 0.6 % Normal 0.2-2.0 [facility] Comment on above: Performed By: #### 1 [id number], 2319623, 4260400, [id number] #### [facility] (DEFAULT) [address] [place] [address] 44301 Eos Abs# 0.3 x10 Normal 0.0-0.4 [facility] Comment on above: Performed By: #### 1 [id number], 4162643, 6109537, [id number] #### [facility] (DEFAULT) [address] [place] [address] 48762 Eosinophils/100 WBC (Bld) 2.5 % Normal 0.9-4.0 [facility] Comment on above: Performed By: #### 1 [id number], 1710037, 8974971, [id number] #### [facility] (DEFAULT) [address] [place] [address] 05313 Lymph Abs# 3.6 x10 High 1.3-2.9 [facility] Comment on above: Performed By: #### 1 [id number], 3976622, 3703406, [id number] #### [facility] (DEFAULT) [address] [place] [address] 93322 Lymphocytes/100 WBC (Bld) 27 % Normal 14-48 [facility] Comment on above: Performed By: #### 1 [id number], 2501410, 3594498, [id number] #### [facility] (DEFAULT) [address] [place] [address] Saunders Abs# 0.7 x10 Normal 0.0-0.8 [facility] Comment on above: Performed By: #### 1 [id number], 4403931, 2269173, [id number] #### [facility] (DEFAULT) [address] [place] [address] Neut Abs# 8.4 x10 Normal 1.5-9.2 [facility] Comment on above: Performed By: #### 1 5925312, 7680954, 7581716, [id number] #### [facility] (DEFAULT) [address] [place] [address] Neutrophils/100 WBC (Bld) 64 % Normal 44-88 [facility] Comment on above: Performed By: #### 1 [id number], 0179642, 2757906, [id number] #### [facility] (DEFAULT) [address] [place] [address] CBC w/ Auto Diffon 4 Man Diff? Auto Invalid Interpretation Code [facility] Comment on above: Performed By: #### 1 [id number], 0052689, 6548750, [id number] #### [facility] (DEFAULT) [address] [place] [address] Erythrocyte distribution width (RBC) [Ratio] 13.6 % Normal 11.5-15.0 [facility] Comment on above: Performed By: #### 1 [id number], 9023324, 6847734, [id number] #### [facility] (DEFAULT) [address] [place] [address] Hematocrit (Bld) [Volume fraction] 42.0 % High 33.7-40.4 [facility] Comment on above: Performed By: #### 1 [id number], 6749441, 4533375, [id number] #### [facility] (DEFAULT) [address] [place] [address] Hemoglobin (Bld) [Mass/Vol] 13.8 g/dL Normal 11.3-15.9 [facility] Comment on above: Performed By: #### 1 0694759, 2873651, 1040795, [id number] #### [facility] (DEFAULT) [address] [place] [address] 97128 MCH (RBC) [Entitic mass] 28 pg Normal 24-34 [facility] Comment on above: Performed By: #### 1 2231901, 5718307, 9275395, [id number] #### [facility] (DEFAULT) [address] [place] [address] 38498 MCHC (RBC) [Mass/Vol] 33 g/dL Normal 26-37 [facility] Comment on above: Performed By: #### 1 4147432, 1004557, 1259979, [id number] #### [facility] (DEFAULT) [address] [place] [address] 96661 MCV (RBC) [Entitic vol] 86 fL Normal 81-100 [facility] Comment on above: Performed By: #### 1 5861721, 2417867, 8281631, [id number] #### [facility] (DEFAULT) [address] [place] [address] 55711 Platelet 352 x10 Normal 138-427 [facility] Comment on above: Performed By: #### 1 3027480, 2559612, 8158771, [id number] #### [facility] (DEFAULT) [address] [place] [address] 54532 Platelet mean volume (Bld) [Entitic vol] 7.8 fL Normal 6.3-10.2 [facility] Comment on above: Performed By: #### 1 5436872, 9798672, 6091867, [id number] #### [facility] (DEFAULT) [address] [place] [address] 81358 RBC 4.90 x10 Normal 3.70-5.30 [facility] Comment on above: Performed By: #### 1 5942339, 9386919, 3050991, 7139347086 #### [facility] (DEFAULT) [address] [place] [address] 50985 WBC 13.1 x10 High 3.5-10.5 [facility] Comment on above: Performed By: #### 1 7671917, 2253883, 5118438, [id number] #### [facility] (DEFAULT) [address] [place] [address] 40491 CMP Standardon 05-28-2024 eGFR Non AA >60 Invalid Interpretation Code [facility] Comment on above: Performed By: #### 1 4468130, 8940987, 6662401, [id number] ####[facility] (DEFAULT)[address] [place] [address] 93416 eGFR AA >60 Invalid Interpretation Code [facility] Comment on above: Performed By: #### 1 0951553, 3247217, 7496853, [id number] ####[facility] (DEFAULT)[address] [place] [address] 61714 Albumin [Mass/Vol] 4.4 g/dL Normal 3.5-5.0 [facility] Comment on above: Performed By: #### 1 2342968, 7001461, 3224073, [id number] ####[facility] (DEFAULT)[address] [place] [address] 62012 Albumin/Globulin [Mass ratio] 1.2 {ratio} Low 1.4-2.6 [facility] Comment on above: Performed By: #### 1 0521120, 8744470, 6184117, [id number] ####[facility] (DEFAULT)[address] [place] [address] 12594 Alk Phos 46 IU/L Normal 32-91 [facility] Comment on above: Performed By: #### 1 0200850, 4661884, 3764456, [id number] ####[facility] (DEFAULT)[address] [place] [address] 12273 ALT [Catalytic activity/Vol] 29.0 U/L Normal 14.0-54.0 [facility] Comment on above: Performed By: #### 1 1756817, 3114927, 1831810, [id number] ####[facility] (DEFAULT)[address] [place] [address] 60850 Anion gap [Moles/Vol] 11.4 mmol/L Normal 5.0-19.0 [facility] Comment on above: Performed By: #### 1 7923386, 1268289, 4259927, [id number] ####[facility] (DEFAULT)[address] [place] [address] 57148 AST [Catalytic activity/Vol] 30 U/L Normal 15-41 [facility] Comment on above: Performed By: #### 1 3940735, 7767174, 2083831, [id number] ####[facility] (DEFAULT)[address] [place] [address] 24173 Bili Total 0.4 mg/dL Normal 0.3-1.2 [facility] Comment on above: Performed By: #### 1 5129517, 6781631, 9635981, [id number] ####[facility] (DEFAULT)[address] [place] [address] 18115 Calcium [Mass/Vol] 8.9 mg/dL Normal 8.9-10.3 [facility] Comment on above: Performed By: #### 1 0233438, 7018398, 2217721, [id number] ####[facility] (DEFAULT)[address] [place] [address] 54173 Chloride [Moles/Vol] 104 mmol/L Normal 101-111 [facility] Comment on above: Performed By: #### 1 4579956, 7552729, 0981198, [id number] ####[facility] (DEFAULT)[address] [place] [address] 90993 CO2 [Moles/Vol] 20 mmol/L Low 21-32 [facility] Comment on above: Performed By: #### 1 0888534, 6107769, 9250368, [id number] ####[facility] (DEFAULT)[address] [place] [address] 42144 Creatinine [Mass/Vol] 0.66 mg/dL Normal 0.60-1.30 [facility] Comment on above: Performed By: #### 1 5162089, 1504854, 4269801, [id number] ####[facility] (DEFAULT)[address] [place] [address] 74391 Globulin (S) [Mass/Vol] 3.5 g/dL Normal 1.5-4.3 [facility] Comment on above: Performed By: #### 1 7373766, 2436711, 3468782, [id number] ####[facility] (DEFAULT)[address] [place] [address] 31505 Glucose [Mass/Vol] 100.0 mg/dL Normal 74.0-118.0 [facility] Comment on above: Performed By: #### 1 3823758, 2504259, 2047199, [id number] ####[facility] (DEFAULT)[address] [place] [address] Osmolality 263 mOsm/L Invalid Interpretation Code [facility] Comment on above: Performed By: #### 1 4094521, 7429165, 1065022, [id number] ####[facility] (DEFAULT)[address] [place] [address]21 Potassium [Moles/Vol] 3.4 mmol/L Low 3.6-5.1 [facility] Comment on above: Performed By: #### 1 [id number], [id number], [id number], [id number] ####[facility] (DEFAULT)[address] [place] [address] 10889 Protein [Mass/Vol] 7.9 g/dL Normal 6.5-8.1 [facility] Comment on above: Performed By: #### 1 [id number], [id number], [id number], [id number] ####[facility] (DEFAULT)[address] [place] [address] 66488 Sodium [Moles/Vol] 132.0 mmol/L Low 136.0-144.0 [facility] Comment on above: Performed By: #### 1 [id number], [id number], [id number], [id number] ####[facility] (DEFAULT)[address] [place] [address] 90334 Urea nitrogen [Mass/Vol] 9 mg/dL Normal 8-26 [facility] Comment on above: Performed By: #### 1 [id number], [id number], [id number], [id number] ####[facility] (DEFAULT)[address] [place] [address] Urea nitrogen/Creatinine [Mass ratio] 13.6 mg/mg Normal 4.6-16.2 [facility] Comment on above: Performed By: #### 1 [id number], [id number], [id number], [id number] ####[facility] (DEFAULT)[address] [place] [address] 57714 ED Clinical Summaryon 2023 ED Clinical Summary [facility] - Emergency Department [address] [place] [address]12 ED Clinical Summary PERSON INFORMATION Name: SHERLY ASTUDILLO Age: 24 Years Sex: FEMALE : 2000 MRN: Acct#: Visit Reason: Back pain; Abdominal pain - ; ABD PAIN LT SIDE, LT LEG NUMB Arrival: 05/28/2024 14:14:57 Discharge: 05/28/2024 17:55:00 LOS: 000 03:41 Check In: 05/28/2024 14:14:57 Checkout:05/28/2024 17:55:00 Address: [address] [place], [place] [id number] PCP: Anthony Gomez MD PROVIDER INFORMATION Provider Role Assigned Unassigned Evonne Cheung PA-C ED PA 05/28/2024 14:19:07 Daisy Freire RN ED Nurse 05/28/2024 14:26:14 VITALS INFORMATION Vital Sign [...] Home PATIENT EDUCATION INFORMATION Instructions: Muscle Strain, Mkhn-en-Fxru; Sciatica, Yckp-lx-Kufr; Back Exercises, Hsni-sn-Rlim Follow-Up: With: Address: When: Anthony Gomez MD [address] [place] [address] Within 3 to 5 days DIAGNOSIS: 1:6 weeks gestation of ; 2:Low back pain with left-sided sciatica; 3:Pain in the side Patient Understands: Yes - Patient/family/caregiv er verbalizes understanding of instructions given Comment: [facility] ED Clinical Summary [facility] ? Urgent Care [address] [place] [address] Clinical Summary PERSON INFORMATION Name: SHERLY ASTUDILLO Age: 24 Years Sex: FEMALE : 2000 MRN: Acct#: Visit Reason: UC - Abdominal Pain; LT SIDE PAIN, LEG PAIN Arrival: 05/28/2024 14:07:02 Discharge: 05/28/2024 14:10:00 LOS: 000 00:03 Check In: 05/28/2024 14:07:02 Checkout: 05/28/2024 14:10:00 Address: [address] [facility] [address] PCP: Anthony Gomez MD PROVIDER INFORMATION Provider [...] left flank pain; Currently Patient Understands: Comment: [facility] ED Note-Nursingon 05-28-2024 ED Note-Nursing Corporate Attorney at bedside while US was performed. pt tolerated well [facility] ED Note-Nursing Pt ambulatory back t [...] is A/Ox4 call light within reach Normal [facility] ED Patient Summaryon 024 ED Patient Summary [facility] - Emergency Department [address] [place], [place] [id number] PATIENT DISCHARGE INSTRUCTIONS Patient Information Name: SHERLY ASTUDILLO Age: 24 Years Date of : 2000 Reason For Visit: Back pain; Abdominal pain - ; ABD PAIN LT SIDE, LT LEG NUMB Arrival Time: 05/28/2024 14:14:57 Primary Care Physician: Anthony Gomez MD Attending Physician: Pam Gao MD Comment: Visit Diagnosis: Diagnoses This Visit 6 weeks gestation of (Z3A.01) Abdominal pain - ([id number]) Back pain ([id number]) Low back pain with left-sided sciatica (M54.42) Pain in the side (R10.9) The Pharmacy at [facility] is open Tuesday through Tuesday from 9A [...] contact the Mental Health & Recovery Board [facility] 28/03 Crisis Hotline -Text 3MZRO in [phone]. If you received any narcotics, sedation, or [...] documents With: Address: When: Anthony Gomez MD [address] [place] [address] Within 3 to 5 days Medication Information: The exam and treatment you received today in the [facility] Emergency Department were for an urgent problem and are not intended as complete care. It is important for you to follow up with a doctor, nurse practitioner, or physician?s assistant director of residence life for ongoing care. If your symptoms become [...] so we can reach you if necessary. [facility] Emergency Department has provided you with a complete list of medications post discharge. Please inform your hazardous materials tanker driver/provider of your visit and for further instruction [...] can happen (more content not included)... Normal [facility] ED Patient Summary [facility] ? Urgent Care [address] [place] [address] PATIENT DISCHARGE INSTRUCTIONS Patient Information Name: SHERLY ASTUDILLO Age: 24 Years Date of : 2000 Reason For Visit: UC - Abdominal Pain; LT SIDE PAIN, LEG PAIN Arrival Time: 05/28/2024 14:07:02 Primary Care Physician: Anthony Gomez MD Attending Physician: Spenser Fang Comment: Patient Education Medication Information: The exam and treatment you received today in the [facility] Emergency Department were for an urgent problem and are not intended as complete care. It is important for you to follow up with a doctor, nurse practitioner, or physician?s assistant director of residence life for ongoing care. If your symptoms become [...] so we can reach you if necessary. [facility] Emergency Department has provided you with a complete list of medications post discharge. Please inform your hazardous materials tanker driver/provider of your visit and for further instruction [...] (R10.9) Currently (Z34.90) UC - Abdominal Pain ([id number]) If you received any narcotics, sedation, or [...] for Disease Control and Prevention May 2014 [facility] Lactic Acidon 05-28-2024 Lactic Acid 9.1 mg/dL Normal 4.5-19.8 [facility] Comment on above: Performed By: #### 2 [id number] #### [facility] (DEFAULT) [address] [place] [address] UA Qaywc9fz 05-28-2024 UA Bacteria Trace Normal [facility] Comment on above: Order Comment: Urina lysis Microscopic order added on by [employer] Expert Rules system. Performed By: #### 5 [id number], [id number] #### [facility] (DEFAULT) [address] [place] [address] UA RBC None Seen [facility] Comment on above: Order Comment: Urina lysis Microscopic order added on by [employer] Expert Rules system. Performed By: #### 5 [id number], [id number] #### [facility] (DEFAULT) [address] [place] [address] UA Squam Epi Moderate Normal [facility] Comment on above: Order Comment: Urina lysis Microscopic order added on by [employer] Expert Rules system. Performed By: #### 5 [id number], [id number] #### [facility] (DEFAULT) [address] [place] [address] UA WBC 0-2 [facility] Comment on above: Order Comment: Urina lysis Microscopic order added on by [employer] Expert Rules system. Performed By: #### 5 [id number], [id number] #### [facility] (DEFAULT) [address] [place] [address] UA w Culture if Ind Standard on 05-28-2024 Breakpoint UA [facility] Comment on above: Performed By: #### 5 [id number], [id number] #### [facility] (DEFAULT) [address] [place] [address] Color (U) Straw [facility] Comment on above: Performed By: #### 5 [id number], [id number] #### [facility] (DEFAULT) [address] [place] [address] Culture? Not Indicated Invalid Interpretation Code [facility] Comment on above: Result Comment: Resu lt created by rule GL_MAGR_ADD_UA_CULT Result created by rule GL_MAGR_ADD_UA_CULT Performed By: #### 5 [id number], [id number] #### [facility] (DEFAULT) [address] [place] [address] Glucose (U) [Mass/Vol] Negative Normal [facility] Comment on above: Performed By: #### 5 [id number], [id number] #### [facility] (DEFAULT) [address] [place] [address] Ketones Ql (U) Negative Normal [facility] Comment on above: Performed By: #### 5 [id number], [id number] #### [facility] (DEFAULT) [address] [place] [address] Micro? Indicated Invalid Interpretation Code [facility] Comment on above: Result Comment: Resu lt created by rule GL_MAGR_ADD_UA_MICRO Performed By: #### 5 [id number], [id number] #### [facility] (DEFAULT) [address] [place] [address] UA Bilirubin Negative Normal [facility] Comment on above: Performed By: #### 5 [id number], [id number] #### [facility] (DEFAULT) [address] [place] [address] UA Blood Negative Normal [facility] Comment on above: Performed By: #### 5 [id number], [id number] #### [facility] (DEFAULT) [address] [place] [address] UA Clarity SL CLOUDY Abnormal CLEAR [facility] Comment on above: Performed By: #### 5 [id number], [id number] #### [facility] (DEFAULT) [address] [place] [address] 22472 UA Leuk Est SMALL Abnormal NEGATIVE [facility] Comment on above: Performed By: #### 5 [id number], [id number] #### [facility] (DEFAULT) [address] [place] [address] 86006 UA Nitrite Negative Normal NEGATIVE [facility] Comment on above: Performed By: #### 5 [id number], [id number] #### [facility] (DEFAULT) [address] [place] [address] UA pH 6.0 Normal 5-8 [facility] Comment on above: Performed By: #### 5 [id number], [id number] #### [facility] (DEFAULT) [address] [place] [address] UA Protein Negative Normal NEGATIVE [facility] Comment on above: Performed By: #### 5 [id number], [id number] #### [facility] (DEFAULT) [address] [place] [address] 44284 UA Spec Grav 1.010 Normal 1.001-1.035 [facility] Comment on above: Performed By: #### 5 [id number], [id number] #### [facility] (DEFAULT) [address] [place] [address] 46471 UA Urobilinogen 0.2 mg/dL Normal 0.2-1.0 [facility] Comment on above: Performed By: #### 5 [id number], [id number] #### [facility] (DEFAULT) [address] [place] [address] 39281 Urine Source Clean Catch Normal [facility] Comment on above: Performed By: #### 5 [id number], [id number] #### [facility] (DEFAULT) [address] [place] [address] US 1st Trimesteron 05-28-2024 US 1st Trimester [...] Anthony Yeh MD 05/28/24 7:34 pm Technologist: [facility] US Transvaginalon 05-28-2024 US Transvaginal EXAM: [...] Anthony Yeh MD 05/28/24 7:34 pm Technologist: [facility] Urgent Care Note- Provideron 05-28-2024 Urgent Care Note- Provider Patient: SHERLY ASTUDILLO Age: 24 years Sex: FEMALE : [...] History Medical history: Resolved Ankle fracture, left (12903966): Resolved. 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 Surgical history: Cholecystectomy (72104480).. Family history: Anxiety Father Sister Diabetes mellitus [...] use: Current Comment: Denkyle - 11/19/2023 09:33 Marisela Puri RN Tobacco [...] Diagnosis Abdominal pain, acute, left upper quadrant (GVQ34-DN R10.12, Discharge, Medical) Acute left flank pain (LWW39-LT R10.9, Discharge, Medical) Currently (WTH14-WG Z34.90, Discharge, Medical) Plan Condition: Stable, Guarded. [...] on: 05/28/2024 14:16 EDT] Spenser Fang Normal [facility] hCG Quantitativeon 4 hCG Quantitative 45937.0 mIU/mL High 0.0-0.6 [facility] Comment on above: Result Comment: Post -Menopausal Reference Range is: 0.1-11.6 mIU/mL Performed By: #### 1 [id number], [id number], [id number], [id number] ####[facility] (DEFAULT)[address] [place] [address] HCG ( test) Ql (U)o n 05-08-2024 Interpretation and review of laboratory results Abnormal [facility] Preg Test, Ur Positive [facility] Progress Noteson 04-24-2024 Crime Scene Technician Authentication Interface Message Text Attestation signed by [...] [facility] PATIENT VISIT CHIEF COMPLAINT: Toothache and [place] Teeth HISTORY OF PRESENT ILLNESS: 24-year-old female [...] canal DIAGNOSIS: Abnormal tooth eruption (Primary Diagnosis) [[id number]] Impacted third molar tooth [[id number]] Caries, Impacted wisdom teeth, and Retained dental root ASSESSMENT: #1 Caries #16 Caries #17 and #32, Partial bony Impaction with pericoronitis PLAN: Surgical extractions #'s 17, 32, Extractions #'s 1, 16, and with local anesthesia Pavan Lee DMD, MD Normal [employer] Crime Scene Technician Authentication Interface Message Text Normal [facility] [employer] Coding Summaryon 03-28-2024 Coding Summary HTMLBase 64 IvnvpytgBZk5wPf+PGhlYW Q+WQ5FWTAuE26kqYSceZ4u I5RNMIxRGaljBJTHONrZPp AgzvErGO8mkHOaMFWv IC8+VK9xJPCnWazwyNNua5 B2oRB4A90pni8xXDpifSJ8 RFFrHoEqmpazb5bfbVw8ID cuNmluOyBt BDAagY24IEU5hM37Rz48sG KceGUyc6txxIh7FzEpFXKa SCI5zEvsEIool2NyNETqZ2 3vaYQnd2C5 MYJnfJnymVCaMaZlkAQ1tO 7qMNjxdruel6btydggUrf5 ok81tTLsc2A5rYP8V3Abvz U8TXEmlIHg TxtakUFEzA5oaqhcu0fmfy mmSmMdKSKnDWg3MLw5GGYz cFtvBfSgAB05JRM7NIRpah NnU0LaFRRu eAqhQsK3d6G0Ob9GQ0XLCa zwW2JGVQERDHujjZE+PC90 oz82L5TqTwnbPpd5HDKfGT M0aSP6oS1o PLBkXOhrl2I6jNP6Q6Tepx Nwyf4qe3hvLJFaYNovD37b iOYho9R0PHHhxUU8FZFvmJ opGdIphL16 Oyc+DMAotEdfu7XwLkcri4 xzw3bbgQc2LzluZDIstcUf wKzsINJ8i9QxVv0rMXQdiJ L2zCL8yC6o JiIgFrL6DGzyT062JfYdbB QuLmpdF04wK8LazDC+PHRy Hey7GMXtdRdaZS0gL6XkAA RpbmctbGVm vXhgUT6iZTPqbmspKMCuoV 2rIHOxQ5k2JpExXeI2QDpl B7XdLBWpyyahSe69wY8sRe WfLoA2OZmu P7GcioS6AZHoqRZdAGqiYW G5G54vd0I0RZVcOAUhVFV6 fPE2kW1hsFpyfmjkiAXxhY sgdmVydGlj EYdtMKpoZ106JQKoaDnyNe NvZGluZyBEYXRlOiAgMDcv MjQvMjAyNDwvdGQ+PHRkIH A9hQumPHZw jNXdPYjvBr7fkWulvHtaCX 7uLNYxwirrHPLrkZ1gSEYz nEDvzKngTU0wSEVmifage0 54ZaBtEXD7 RCKpjNJjU4AdvI1bEqLiZI PwZJBsM8FgcLVcVFhhQ761 RAktLhI5SDDqohEcT0ItEO FsaWduOiB0 l4M8Rn1Wd8KbvxugK2EzzV GqIdUxBcpfCYi7B4ReIqte dHI+MS04HWUyXJ61REu5CY L9hRalRPma DFUbR1CxxS8yYpCbWYBsAD RkOyc+PHRhYmxlIHdpZHRo TCytNPMkHxDedKozTA0zQd 9yZGVyLWNv eVgxdZBjMdNgz3inHDPlEF owBM1euGqvZ8JvsSZ0JDNh t8o4Pw05G54xP6BnbEZ+PG PvdWB6lOL8 wP9dEoUyHuJ6ALnbD057Vi YlkQNeAojqj9nna2tmhIx9 FjG1URDcfuXywWsbSQW7v6 MqFn81R77r IHdpZHRoPSIxNSUiIHZhbG beyz0sgM8vNe0+PGNvbCB3 sWO0xE0oZsWhXoF2PSucY8 49InRvcCIv Fmsip4hqb7wvqNi4BpKoFV YzmrNrfVvzMAU7y5CdBc46 T0ZagSiqo6HmKgb2sp84fA Dbk2Z7nLI5 Z6KdPYFltdfxkIAfyBjlKG 2cKTZlhyshDYBauY0jPXRd W6m2ThKdXvL2DUnbJ3Nyls A2QBAbaOXk RFGtyESYbM6jxfsgo3sjnu soOiMgHIXsYUu9QNj6YWAk oUhaYqQaBWV4UbR3DUL6bT AmjM7jcUjy oexnvQ7uRta+CKT5fYFeqC HVDN4tXsakoKX+PHRkIHN0 iOzjGAvwYUFupW1dIINxB3 d3XnPtIcB0 YLazX7DtyvM6ZVVekFAeUP MpiRJFwO5oloyxr4juqgqa IdBrTNXaNXu4NZc3TFPrxM duOiBsZWZ0 XwK5MUX4oYXfpS5yjShkmh kxeP8oKyo+QmlydGggRGF0 NXh8G7GaPly3NLXioVwoAV 0ncGFkZGlu Gy3knNdlbJdvQX7xKRYbqi geq128DbAnb1rrOCPumNSf ILvwUSX6Q77xs5D9HUFvNZ AcTAQ6aEY9 hB9fvOztpynowMZipDtotj NeyIcjSDejTChuE644DKHh hPevVjEpLZs6U7HjSvr0VJ GipJgxJY4i zLWnUKhzMy8viAlgvDvcCD 9uOVJaicncv505XjZrg2nl KBUfvWUaFCqqOOD1C61kn2 C0EWViZHYg DLK4nXQ2nK0blPfzxhtsnN VmdDsgdmVydGljYWwtYWxp Y334QWVfsTncGfPleMv2T0 CbOgl6LDXc sIdzFJ0pkZQzLFghBm0pkW hvfRhlFQ1lRLSortbdc140 AbKsd8tvIJHadRUjLYvkEP X3J71xf0H3 YLSuBUTsFGW3mUG0xG0bfT lnbjogbGVmdDsgdmVydGlj WMpkDRfoO983BZCutSotNy BhdGllbnQg AVxoJLk2W1ZzNivkoAU+PC 09AEJaQU12gSYzaUGzk3pp jEu4HbGyVNJzFDJ8pRyuWQ htk7GwSLRg J29idSVem5D8GXXfzOcqbJ VwWrHydAX6xG1oPHzkchid q0xbykswTwbrm6kito30aT 80J44fYOuk ZHRoPSIzMCUiIHZhbGlnbj 5dhT2qZh2+PJAifQU9oZT0 pY1eRZFtHdZ4VTdpX908Ok RvcCIvPjxj e4ruz1hmhGr3OdD9IFFvzf OlcNacRXW9f7MwQk03F21h IHdpZHRoPSIyMCUiIHZhbG sgue8gkY5m Ii8+RNGbfFS1fKH5qT5zSd DvXuC7TQluJ763WzKrpQBw XuadK87xK4OasMG+PHRyPj o1BYHrmRkp GG5jgSQjHJswTd2vPUD6Af PoZoXoCOckZ9SnGQAnnslx pvzxvVW2CBSrSKUunQ96Ba 9udDogMTBw dFGPpF7eexeuv0mopkicIx XkAAZrHUk0GAb3BDMqvRbx GrHiUZM9CjR2YQI9aMUysQ 1hbGlnbjog wJ7xU6ItIYHosbzjZn34vC 2pHdQeZmT2VWgpPsj+Q1JB H1FJZqGeIFZHUQYDQyVyZR lDSEVMTEU8 G6MzQnc8RROsrRxyYK2wqA TfAIctHr5azKnfzPrmPM4f ADKbznjfIDDbrT0hLZZgxK RhtBlyTA4z ZTKetkhfq895ChIfUMX9LW BraWRyM2SajE7kWmFkKJGh BIWiF9QzvZCjVHuiA195YU bzTkR4BKWr vfWxO3KiXPOokJsyLqX6k0 I3Xw2dCi6xPN3nBJi6JJ12 DZ16wTPjh0O2gVT4A8TbEB Rpbmctcmln xIE1GMSmNXPkoB16iMEvYW jyWm8xs3K1v798TYOfKKHt eL92Yy4mjQxuMFIajJNUpE 0egjezf7gi vofzIyCuVXLvISw8SKj5JF JogUiaEfQcCMH0OcV3QSY1 tMXxgL0znOzkafpdiZ7xGu c+MjYgWWVh vxR3N9TbEjo4YMJkmSlzPW 9fhVEyJYqjVf8vwVvskUth SF0vRMKnzvzxLLOjfR9kBN JvdHRvbTog IP6mJBAvlgcqu400ImYwEE H2BCJlaTPwF9BbyS6cPwLz TVAqFAAjE3ElqRRkIWchQ9 50QJdjJbP0 LKLnazTbP8XcPDExlLcsVw R9u4V1Ux5XIE0ITJL1I3Zu Zlr9KBVuyNdjRW8nmDTvJW wfIj4maBgw sFdjIO7qMLShjqcsPXVjzS 8pGKUqlXEycTvwJG1yWQWi uyvzo743VvLrCLK2LCQaxX ZuT3ZrpH0b PePiEESrYMXaA4BjbSIsTN czJ699JMkrIyO1TYTqhwEb X3RgYCFpdYddSrF6m2W2Sf 5PUDwvdGQ+ AC85yg34A5NkEjwoZfa3UU FiXND4nGY1aV7iPKYyNLry e1B5hUY9E9XlwfVtnk3pl2 xsYXBzZTog R97ruTMfs0U8NTGzjOO3WP KbyQquAhQnyR14Dxg+PGNv dAwtg8HhMyjmb2pae7pibG d3SnYyOLJm etPquAfsCUU3u9UeSc81K2 9sIHdpZHRoPSIzMCUiIHZh fWnkdw9njW0eGk9+PGNvbC P2pFI4kE9b BvVfCpV6EViuX902XfWjrW GqGgneu6phe4nzcTi8RmBf JDPgetCixEowJNB4t6ShHi 35M7WivPer r6EwZyv5pb95lOTqa1D4jU N8F3UxELSimtsrwCPbjItp QS7qPQGmwsjvXZYtzM8cBO ZkO9h2EvJy YdK9XAqaZ7MrmgU1OWWnoZ HlTUFgpLUIbH8sjsgji1np xcgvJdRsWBHeNWv8UDo8HI FsaWduOiBs PPV2UjA9WNT7qMQdpO5boI daakkypD5mZqi+IWr7t1za wTAtJF5jgYU8SA15SM50vI Uxe3P6qGE6 W0OdTQAaggbzruebsTZ8RF ZlMPJayD08Oq5xyXzcPn1h VXWxJFJ3CDUtwGQvR7AawM 9yOiAjMDAw KAXfP2NckZWoBUtuR659CV hpZlS3EONrxkJiX3RzPTKk pLrsCqM5y5M3Zy1VXL42UK 91JZ98xBRs m0X0xNQ9D7PmVGNxmqgdex bmyGX3RSOcKEKtfP04Jx9y zUpjRu6dNXNeJGA2SDLfdC ZuQ7McwE8y UyDuREUvLQDaJ6TaoYXnAS sqV395VMmrNtJ0UKDtqkCe M7KfBQGfeXerDlR2n9P1Ty 5PJk33QR68 RL68yVBca8B1mYI0T5XaRW YmiaeiulwygIX7BEAnJTWh yP69Bv7nlYoxDd8kSJVeTV O0PFOzzOHw R4HmvN8zBsZbVTTbRVMaC9 BgnDAiAQasC723ZDelSrF9 IPHbzhFqT9SfNYUcqYnpGh N1x3X9Za6U AOlyieu8R8BwOcrgnBL+PC 77VAAoGL46fVOqsRVyc9tv jCk4JgPxFJBvPGO7rRweHO fwd1AhQPYu Y29 (more content not included)... Normal [facility] Progesterone LCon 03-15-2024 Progesterone LC 1.4 ng/mL Invalid Interpretation Code [facility] Comment on above: Result Comment: Foll icular phase 0.1 - 0.9 Luteal phase 1.8 - 23.9 Ovulation phase 0.1 - 12.0 First trimester 11.0 - 44.3 Second trimester 25.4 - 83.3 Third trimester 58.7 - 214.0 Postmenopausal 0.0 - 0.1 Performed At: [address] [id number] Sarah Beal PhD Ph:[phone] Performed By: #### 9 [id number] #### [facility] (DEFAULT) [address] [place] [address] Provider Orderson 03-14-2024 Provider Orders [id number]#1.[address] [place] [address] Coding Summaryon 02-20-2024 Coding Summary [employer]Base 64 MirkdaovIAc0hTu+PGhlYW Q+PE0AQESwY09hrQJjvG7m U0FRTJpYGwbcHXFGNFuWXv BilxAgFE0ewDEbJPQi IC8+SM7uNQGkOcibqMEjp0 E2eDB9M45rhy0qKLwujIR2 SAUzOxIprfwxx0bezNf3XI cuNmluOyBt XKVgoU00VQA8xO42Hg03oI EztAJpa2emmNi9KoOlNKDe DWJ2mIqrYNazy7RjCYInM9 1twPBbr3X9 UAZjePfhuAQiUaHajAA1kZ 3nUXkltioqf3wfrzbuQxv6 sh96bDXlz8S3dAX1V1Aokx B5GXBzmKBc VidcmWTEgN1tzqibu0fbqm wrRsEkGGFhPDm3EXd3MWKk xVeeTuBwZM86SDI6KXOslf LzD6UnSPCz bIboRgO2z9A9Mf3EJ2MSWq kiE5FFLRITIOdgzWG+PC90 tg08A8WsXqxqChb5XEOxHB S1kNB5uY2j OCWbMJscq7Y1sYL6Y3Kski Urwx5bs2mdKDGyMJsoT33n oQBti1J5QPJlaPZ8PYJjnK aeWiHzoT12 Oyc+FZXplPjxi5XxLnjae7 uib2ovuBm8OnkfZPSlcjEs tIawYMI8r3QsSs4oOPPwoW C0oOC7gI5b MeFdTjU9TRdyP033VsBuhJ KpMcaaL76cU6LpoFW+PHRy Xuv0SZAvsAwuHF8sM5AbAQ RpbmctbGVm pRecFG3cBNQfirkpZNEqgS 3iYHHsF9w1MmEeKzT3MWfv C9OwKTPdejvgMu06jI3nBu FtJuI0VBsf A8QvtrP7RTVtiNElCRxqFY A7O77te3M2BZLlNLAkZSN2 tHN3fW5ovKypbhzxiBGpsJ sgdmVydGlj AMbiWQgeA451TAPvnOryVu NvZGluZyBEYXRlOiAgMDYv MTcvMjAyNDwvdGQ+PHRkIH J7wOkaFTVy kXGiNOnaGw9xaSudwMjfZH 3hUQCyyudjQHCcpR5kSLUh eMSyjQwlVO6oYAJrynjuk6 04XtNxVCO9 JQPchFPeX0YatG1jLvJeLN MnQLRzK2GikUTlXZmeZ577 WXrcJdU6VMIsfiUvV4IhIW FsaWduOiB0 y4B1Wv6Oy2KqfwctE6PdrJ ApPoNeShwnALg7O9KeJcug dHI+UP32ITScZB12RTe8DY A1zPavBHxv AIBoF2FjkM0uJxWgWOAvWN RkOyc+PHRhYmxlIHdpZHRo VUtrCNWxReIpsMunCG0hFc 9yZGVyLWNv tEdceNMxLwGkb2vtCWXxPS xdKZ9trMsoK0NevLV2JBIw i7v8Af98Y07aT2HjbOO+PG TqhKT0oAL7 eE8pAjUzVgD4BCydE974Iu VxeGCgKrcyv2mbo2cagYf3 XkZ0WXUvpsCheFlaGDO0g2 YeKm93M21x IHdpZHRoPSIxNSUiIHZhbG ietj0keP9mWp8+PGNvbCB3 fBY0rO0dXiBdTgQ5NRooG6 49InRvcCIv Vwgaa2fee7szwOf4ElPkHF FgntLwqIgqPSX9r3StWq75 T7GqyAcnm3AaFlp7tu61mC Mmp4F4eMH9 E0VlPOAenoeqwNLamDxwYB 8eVZIdhpitCYByaX8yIVPm B5o5UnMvVaZ8SIxtB2Earx Z3MRBpnHTl VJXegWGFuK7bmkzcm8qvbc pxGxAxLQZfZRy7QIh4PSLf bPovEhKtBUI8WoF8VNQ7iK VidU9rwLvs hkngyV6tTev+PDL6pKDkoW WVCS2rToiodCB+PHRkIHN0 lWcwBHcxGGWttX8jSWEoS7 c2RpSmPiU9 RVsbQ6DerxB2YBBdiMKjPR DezDHHgM9vcvbee0zuvdcq JzUoNHEaIQj4UAp1OGQzbT duOiBsZWZ0 AyF8KWK4sKEcvH3uuDufza oeoL6mDuc+QmlydGggRGF0 MPi6B9GxJtm2MQWxcAgaMM 0ncGFkZGlu Ro0vgRtbeCgsLW0uBOWmhs zoh814PtRyt5fiDMBceXSo WWmkVLS2K74nr0Z8FMIiQE VjLHQ8pRP3 sN6gdEmlygmtmWCaiOfvrd KpaUdwCJgeDZowB924GDLt iFxgSzJqFJm1R0RgSss8HI CjwPsrBQ2o lYLdCFzsXi8seAvbwMvmZP 8tSBCjnxqmh700KyAkv2it OTAlnBDnYJagGNG3I12gg2 Z4YVCkWVEe ZWY9sKN8hL3qsGxaksincM VmdDsgdmVydGljYWwtYWxp J841FNUlhBqzHyZanLw8F4 VsVhs2QJNg sSgqGZ8ukITrBBruTk1mqE mumAlpLZ5kDJKqvclmz459 QmFoc6efMURewCBiRQieCH T1S80fd4R8 GFVsIYZnMYQ7rGN1aW0eoM lnbjogbGVmdDsgdmVydGlj PIiyFZqmT022NINnkVpvDf BhdGllbnQg GVwfEVf6G5UjUdjxbWH+PC 73SMYsBQ54mUEikINxi0jd sEs1RfCfCCEjPJK1wQqqKH tcw4OwKTKa C72yuBWhd5I5SZMhoNdggQ XlJwQlkFX6rA6nTRlyddai f0gdedrsRcwcn3zgli99zU 76A05sMUya ZHRoPSIzMCUiIHZhbGlnbj 2ssA2xSd8+RKEphNO3rNY4 kI0uBWRhMhG6CXvhT127Rg RvcCIvPjxj p0auz5rtgQs4HnO8RLWxiu GfrHcwORZ6c2FrPs11C28s IHdpZHRoPSIyMCUiIHZhbG bpuh2vrB6g Ii8+IGZbdOJ1gVB6pN6fZn NlKiF1WJdeA091PgIcnWQi SiaaQ39uF7NdjAL+PHRyPj g6YNFrwEmh QT3rbXAnXFykXw8oDHM0Qd QhUaAqNZugI2FoYGXquuqf disvbWS7JNOpTHCbgX95We 9udDogMTBw bEIGpR8ccgwnt7etpgxaOp BmPCIvAMw6KMu6QPMdcFmn OaPeYVL9RbS7TGJ3fQRuhD 1hbGlnbjog cC4pN7DzQELnlccwGu53fZ 6qWtAqGsJ4LXdyHzi+Q1JB S7IXWbPjMSSIWRROKlVsXA lDSEVMTEU8 F6GlSct2PBTklKveHH6tpT ItXAciIq0ueXpesMgsZQ4k YZFlxxqeSRYtxV6rZCWolR KrvIjtZG9k YJRuilpfy091YsJlAUK8BS IxxCLlW4RzyM4iHuUbMRBb QBKaP2BodZMnAEqeJ658KX sfNjZ1UBDf tpTyB2MnPXYdhZgaJtG1r5 S4Cw6rUo1mPS0qDBm7XI15 CS86nSVdj9O7dZC3Y0IoJX Rpbmctcmln eJH4TTYkGZYodZ59yYZnNA qzMl9xd0M7l649VRGnFIHa qP02Lg0kfMyiNAImdAIKlY 4hnsima7os kzrkPbMeHRFjVTu9BQa2GJ TteXutXrHbYHB7SiA5BBX9 lDYrdR1oaSbejcmzcB0gFb c+MjUgWWVh ufP1T8UbUss9JXFwcSceZY 3aeGAyQApwPk2etOxzeHjd MA8eJAQyssekWPCzpS0pTT JvdHRvbTog AJ2zHROakremt641YdZtFQ P4GMEueLLzO7JkrU7zYtQm PZPaKMSyS9IptDEtJQklQ5 60PWhsJhQ2 PXYvcyLqT3ObHNIqiYevTo L4m3F3Tp7PEY5GZDC0Y5Wl Mky0VTZiuAccWC3vlNEjTJ maOy8lkLkw nCuaGT3cEOUieobkCZSlcJ 7yCJCwiVWdyVfiEG3qZHLo vvrhg547HeLmCWL3LIGrjO TxS5RddA2d DuIgPOSrOYKzW5MxvTVaGU dtT938LNtxUtJ6OIRzhaOr T3WwJBZvgYfiWeE2j0V7Kd 5PUDwvdGQ+ OM13re31M1MfBmirUbs2FQ GuZLF1eSR4eI4eDOFiKBqi p3Z6nPT7K0JfgpDahe7bo4 xsYXBzZTog N96lyNTzx5X2KSGggNW1GE JzhOseLxWqfW81Jxq+PGNv iJefo3KePwjnp9bso0bepY d2SvBcLZTv nwLeqHggDWM8d2CeFo60M6 9sIHdpZHRoPSIzMCUiIHZh nDofjc7hmU5iKj5+PGNvbC S5cND3mC9n ImIjWnE9ASyrY715IyXpbF ZnGyeei5vhw9oqrFs7IwUt BQJzlpUwuKeqYYR6g9VfPq 38F9LbqAnk w1EsSds0lk18pPHzh2Y1mV G9T1RbNJReiepilKYxzVxv QZ5sRJZiisruRORlyN0eDF BkI2p2FjXo AgN2ZRfkM1HokyV5ABAwpH FpCHYwkFSWyB2bbfwkq2vq xrtxYaKqGJYwQAp6ZAp5KQ FsaWduOiBs KBL4TmP0UXF6oDVgwW3tdW wnwsdtjO9jVag+NYg4x7xz hQQdCC3tmTS5GS95BH18vE Xsf8N5aKR2 M6XjPYMftenkqghnaVD5SA TnSSBflL49Tv7joQpyIp8z RRNcAOD7LKPjfWVsK8CtnS 9yOiAjMDAw CURdH9EylCPdGEyxN170PY grUxB4DKPwcaRyT0RdEZAi sOlyPmH7h1O1Dk0QZX93QX 60HJ06gZAd y6O4bKW1C5QbOQDwwhbzwy ptbFK9TYIcBDKkfH01Mb8m xTseBb8xJLEvTSE8ZHIrgD InZ5DgbO7w PxGfKNRfYNLyD1DkpWAyMQ jsF425UXqtOtK7VFOebjEl K2ChCRYxdBmtMiV9q8G9Nj 3VHa63IO12 US21vRFub2E6pPW5G9LnQW YlynudkqepoEE5EIBzNUUv hX37Ap2kjVfiIt1rTHXzBC A3DNWdqJJt U2EpnU7iWgYoDKBxYPIqQ7 NwgNRiKHsiX995EGngCiW4 XIHosoBzL0CfYKMknHcsRg C5q2W9Fo3N DJtfaei2H5KtPncrbAB+PC 89GIRrXX06zHMjiFWge0fa xNs2ZqRcYTCoLZU2qAiqDS hiy4VpYWQl Y29 (more content not included)... [facility] Progesterone LCon 02-15-2024 Progesterone LC 18.8 ng/mL Invalid Interpretation Code [facility] Comment on above: Result Comment: Foll icular phase 0.1 - 0.9 Luteal phase 1.8 - 23.9 Ovulation phase 0.1 - 12.0 First trimester 11.0 - 44.3 Second trimester 25.4 - 83.3 Third trimester 58.7 - 214.0 Postmenopausal 0.0 - 0.1 Performed At: [facility] [id number] Sarah Beal PhD Ph:[phone] Performed By: #### 5 [id number] #### [facility] (DEFAULT) [address] [place] [address] Provider Orderson 02-14-2024 Provider Orders [id number] 21 [id number]#1.0 0OTGTIFF [facility] Coding Summaryon 01-19-2024 Coding Summary HTMLBase 64 XqsbsjleRUg3zYd+PGhlYW Q+MZ9QVSOcZ55fbVTjnH0f M6PFUWqOIjtbFHWAIYrHKa ZtwrYeXV3vjFXnMHWs IC8+OK2qGSByDavorMVaz7 Y2iGR7Q71nni7kBWnhaSE3 WMLdZvWzhnjfd8zvwIy8MR cuNmluOyBt RZDzqN77UIV5oQ71Rz27qG OtqPQta7pocNc5BnAuIKOe HOF1cJpvBCsje7RoPZDtH3 9vbSJqu9N9 IXPdfDhbxVDlLmYqaMD1qA 8qTDerzobzk6aehttjBjo9 yu93dONtv1Z9hMU4U0Ssbz E2XXFaxXVy IuoeuGPOiL3xxzgre0iari hwQnElPBOgLOz6ADq4OFUy fRsnKrUtSY85KVY6XLOqhg EhL1QaJMQb wKdtEkH2n1B4Oj4ZD9PFIr juM9WFIPCUMTdfjTV+PC90 zr94U9PkRevpZot9VWTfTO U7gBB1tJ3k MWZhOAkfg9E8oHL2U2Zree Ussi7fm0vlVOOkQUiyT82y hEZto9Q2CPOqiZF2QQWhsT tsMnPmbF68 Oyc+WPVyiFlrg1KdYpgda4 gdg2udnPu9LwrnZINtxxFu pDngZUW7c1GrQn1mKKPinQ B3rFA0uA1k FrKuTeA4LKazL724GsIskW AtKkmoA79gK8GwkSK+PHRy Ggk3CKKqeZxrGO6nK4UtJS RpbmctbGVm iYqbBS6pHKQpqtiaNOFhwL 4eTHLvH0g2NrLoZiC3DGxb X3ZuPUBizsrhPy61yE9rXf WpDjC9TShq P7KvekP9IUYqmEGmVVbaMK J4Y85to4C5SQWcDHVlRDG7 mOB4sW0uuLplyfwjcZRxvG sgdmVydGlj EIupOZoeG661TZRvzOouHi NvZGluZyBEYXRlOiAgMDUv MTYvMjAyNDwvdGQ+PHRkIH M1hQvgNFEi vNGsKCniNq0loUkaoZfaAC 4vIEKrijaxLONfdR3uYLUu tUEamKdfBL7uLWKxogrxm6 86OeHcJTD0 AHTpiIPjA4PejM6cUiLeFA KgQHZuL0OecACkLFpaJ431 IWjiXtR7XLYqesSdV7PiRK FsaWduOiB0 z5I2Xs3Mv2UbciucP9FzgE YaHkSoTqxdOBx5H8GeBity dHI+KP14ELCeHE76PDa8FQ N6oEsnKDop TDXrJ1XndV6uQgPbEOGbMA RkOyc+PHRhYmxlIHdpZHRo QQqqDCBlKrYyqYfeRV8dQi 9yZGVyLWNv vNnaoQRvUkSbr1siOIEkNG quIR3gqLqcA9PvuPY6CZZv s7o4Ch41O93uS2XlsZU+PG BlyTK7tQU5 rE2sXvXoTdC7TNxmR424Vg XqjPJwAkqqo0npw3jrxEh2 QlY6HSGvmyGqhJauEVX4g4 WxQz29E34w IHdpZHRoPSIxNSUiIHZhbG qnos1xuW3hPm0+PGNvbCB3 tOZ0dG1gJuNaTzA6PEnsP4 49InRvcCIv Khubr9vci1sipDa0PzWtSJ ZjutGjoRcfLFJ3j2MuHs25 Y9UguBfxf1CwYrp0cp92hW Knn9H2fJS1 W3GpNCMuyfyufXImdFkuJM 4uWPKdxyvaRPOnsF0jMLBg Y4k7DmWxIlL9OZluG7Vzlr I6AQXkwWKz NRKftODHuL8rihmct0qcfi elCeDnGJCtAXl4TSe8WXIa uIfzLfWhAJC1ByI4ZRJ2yQ NskY7qdLvi norzlY7oBpi+ZHQ1xORdpM HDZL5iZelziBG+PHRkIHN0 iCzyTDunBEIxwE6zGLGvC9 j0WmAaNaL6 CYqtD2HcwwW2SOMnsYLnNW UepBGOmE5nlzmuk5pqgtuk GqOiBNJjFMu3MIi8KSCscN duOiBsZWZ0 IxZ9OCA7pMDlsM1mgJnoqr eroM7cBna+QmlydGggRGF0 WLs9N0MyCzh6DKYrpLicPW 0ncGFkZGlu As8pxDpljGbcNW7nKAEbay thf418SdCse1egIHDmlLVk ENpgKPK5V95na9J8BZTcQU OmUPI9yBI0 iP7hlJvndxsahWAtjFxjoi WuzAywXAmlDDaqU957ZKPl sYvuGqGmBBe8X5ByNil6QG NwzLyoEZ7a gGSaWXyfUd3rpJeclWorBR 2rUAJaiutdq463YgGkm2cm JTAfzWHkKZglDRT7A65sh7 A2HSAtZAMb WUB7tGK2gA2gcDspeyisnI VmdDsgdmVydGljYWwtYWxp T009DAOhcJrlUlMahVu6U6 GyXkn3IYRj gSctXA2lfJBeMRkaOa2dwL pwsSqsUF4dPSDlueiyw908 ZyJif5raWRUfbDRgIVvtXR G8Z71vk4X7 YHFjMBTcBOK6fEH4aG5npT lnbjogbGVmdDsgdmVydGlj HJbqHKgrV751HTEulAnbXn BhdGllbnQg XQzdGQc9Y9LdPkyaeME+PC 09AZZdIU22wMMbiABmh1sf zZj5CcQePAYoJKS3yZwmSP szl2CwNAWu M14qcGLos0E0ZHRbjUqddD WwEyZkzGY6pE2eHQhyxbfu k2mbgjvwMjory2kvqt78uO 77W61vMRki ZHRoPSIzMCUiIHZhbGlnbj 2neR3eUa4+KGUomFC7gET8 yW1mEXQjYvO3XUzxI865Qj RvcCIvPjxj r3uoj1kriPw9UsZ4WOZxqq EdvNxoPIF1a2CtYe15R64y IHdpZHRoPSIyMCUiIHZhbG xxhk7kyN1u Ii8+OBCrgOM0eZQ8xZ5aIs RjTyY6YGtoA311UxVbeSEg KmvzU85jN4FnfGX+PHRyPj h5JHIacCsk JF2wkSAsXKseGu4xENW5Fn HeAkBxBNjyH1OxLVUinvnw sysasLF9NXJbFHNmhH34Bt 9udDogMTBw kBGMsK1uzukmm4rzjoncFp DvBFWhGGm3JTm5CJBgfKhi HuRrMLX0IlE4YBG1vXBkyB 1hbGlnbjog nA2dH2DtSXTpgktpYj59fD 7fYjXuHiG9GAhcHys+Q1JB D1GNSoTcZYKDJKWXSuZqQQ lDSEVMTEU8 M5MoMhf5XSZvjCtwKR3jbP FgKZqwYf8niBqbqZanXK5d QYWksptkPCLyiB2vJAIsqX MiiXoaIE5r AHNqhirbg359JrKsMET9EM AadHTnQ0NnoE5lXjXeVCOb VWBuB0UqaUOgBDltQ691LL duKeO1SWNw xmNpX7EjYGWnxTmqDcR6h2 C4So9aIf9jWO5zYXo0CX45 PW55wIQsb0S8rAC9A5FwXR Rpbmctcmln kNA6HGEfDYNiqU14nZXcCO ehIg5wn9D1m714TWSnSDOv xI17Ez3zmLnrQINicKPZeP 8rhnqew3cu tlipScYiKCPgLVb3YEd5ZQ KltBggUpFvZCD4PhA2JKT2 qGWdsF6jqIuwihtbbX0lSw c+MjUgWWVh gaF0J7DhKug9TXShvWksHA 0arWIlAXtlWk1lrXhgxElr MG4wYPJyhcyeIOItiE6jNY JvdHRvbTog VV1cZBYvjdors078LuDsDN O1EYDrqPUfW6OrwL7gGdXn WYDfUQCgU4GrkHEcDKbgT1 66DPywRrA2 JUWkzaZxV5PmKFAwwEolIj K6c6G3If5ZFX5IUCD5C4Kh Pnq6YJNczLewUP9zgDDeZJ aaSm8gmEjm qObiIQ3jAJHcqkqoQJScwS 4jAURicLOamUcfCK7rUQGv tycvs884NoWqEXZ6BOTpaR HsJ8NmjO6j AmZnZTBsLFGbX2XyfGHxSY ccI631CMcxMnM2KMGueiDo S1XhYGMyqQkeFiY3o5U0Aq 5PUDwvdGQ+ GP61kg72Z7NiJmvaQtl9VV UlVAW7rLS1kU1oXEPoBTle n7D1oMZ7V1AwvrPutt4od2 xsYXBzZTog V80dsQJmr1Y7SEJydUU5OT IrcLucUlPvvY94Snb+PGNv zAfvi5YjYgknx4rel4wisB r7ZtVcBYAp izTtxMiyOZS9y9TiRg73T5 9sIHdpZHRoPSIzMCUiIHZh kJwsxa6yxO8iIv8+PGNvbC Q6dHY7jW5x BzSiMvH2BGppQ107CsCnxC DkGusaw3nnf5vucYc6OwUr SIHklpDggKfoRKJ5b5YrCs 20N0BwgVxc b9YdVrw5gb50tBIif9U0vW I3I5EdHIRcdnvymANavLug QV6lYCBjomqsIWRzkN9cKL XfW7b0ZuKz NpK1NYwjU7GzobX7NVEdfX ZeSLXceUICfH8uzvvhv9ii vyrqWhEoBGCqNUt5YYj6AV FsaWduOiBs GAS8SbS5RNP7mJHxrW9ufF kamnzhnQ2lKnl+QCx5d1jh zITvWJ6myYE6QP62ZZ90tW Exd2X4eXN7 B8WnTLPwnzlucatpxXM0LL EqAZLeeU29Vz5juLrgMz8l CASvGUL1VISiaUDsH3WxoT 9yOiAjMDAw BVCyP0OnjNQlSDypG710JC hwFuL2CRTjvvHlD2WfQMTu hBtrTjZ8t9J2Ls6BOR17IA 10LE88uJTi o1L5rDW4T9AvQAAmzbmrmd sgkYG2YRJbTRLovT59Je8x sFlyYo6mSJAqGPG2ZGXkxC ZpO8PogF0i QtPmPZHvWEQlG4ZpgIDvLP xvK223IGuyIyQ2RRRkkoQy E0LnLQHmsZqaIbF0w5K0Le 7QRt00FK01 QJ77uABxo0O3mKA1A9AaEM LqgpwcimqwwAY7XTLmPKAw pP30Nx4xeQxyJw4pVKFoUT K1IBBiqJKm E0GpcE9vFlTfPTOuUFMdP5 KjbQChFOwtG307RUwrBpG5 MMMwvqRsM8GtJJTwrBnuWe U3h8V2Yi7R BKcddph0L5VhVkyixYU+PC 83FAJxMN40gYAmnHDsk5ac sBu2TnZfZEHsZLY7uSqaEZ rez6IwRYYz Y29 (more content not included)... Normal [facility] Progesterone LCon 01-18-2024 Progesterone LC 14.5 ng/mL Invalid Interpretation Code [facility] Comment on above: Result Comment: Foll icular phase 0.1 - 0.9 Luteal phase 1.8 - 23.9 Ovulation phase 0.1 - 12.0 First trimester 11.0 - 44.3 Second trimester 25.4 - 83.3 Third trimester 58.7 - 214.0 Postmenopausal 0.0 - 0.1 Performed At: [address] [id number] Sarah Beal PhD Ph:[phone] Performed By: #### 3 [id number] #### [facility] ([facility]) [address] [place] [address] Provider Orderson 01-17-2024 Provider Orders [id number] 02 [id number]#1. 00OTGTIFF [facility] Coding Summaryon 12-21-2023 [facility]oding Summary [facility] JjdqneaeSOw1wKw+PGhlYW Q+TQ8COZYwH17kkHEozV0c Q8YLFStJUwslSBCDFJpQZw PdtbOgMK2vnUXhTUJg IC8+GO1bDFHpPomnoVUjy9 F5nDM9H58qft8mCTvduHP7 ZVGcRqBurmllj0nvbMd7DR cuNmluOyBt ALSsjS24CZL0dU83Un79xE EkqTCtf2aptPt9GtNkEAQu YNL2jSbaSNriy7SqWZZlS0 2zlAPpo5E8 KGAyeYvwpROfVxWwkPS3wS 7vKWzvacwel6upuifqVjs7 qu32tOOfu7N6wQE8Z2Ckpg H0RRJnhULz XfiocPHQvI3qdkmof8yqyz qlQyNwFJBeAPp6PBm0KHPk tWtgOyPhXW82SYJ4BBGtpv ZcO6YoTIWi yYkvJaP6n5Z5Hn6BF7SZUj mnI5PNIZDXNZkabEG+PC90 dj48K4NrDpisIgm2NYDiJZ T4hRB9fR7x VPJvNOqqr0Q2mSG0A0Jnms Kycw8ow0efQNSlIZqbG69p vPQle9S0LMRrmZI0QVWknQ zgQhQflL72 Oyc+OLOyfGmyv0PrRomwk2 grq5bagBq4HqihTDZaubJy rOcvACD1k4UfKw5dOOXlmQ C3tGV8lV5d RcUsQvL0JFqkE625DuOsaJ FkXwcsV24gG5OmcJJ+PHRy Vtm7LOZybZbmLW4rQ2CiML RpbmctbGVm tXopSO4hNFVeaecyMPIynU 9tEORsI5v4ZhZyBoB6HBvi S6GjPTVrrqtwKv03lY9vVv GtUiV5ZDwj J1CvjbB2QUGpbWIsBDmyJD V2W65ot8G0IKAwWOCeSKM6 rZU2tM2ufDdetatvrFBlnI sgdmVydGlj FIuyUMgvV204FEJzxFsaXh NvZGluZyBEYXRlOiAgMDQv MTcvMjAyNDwvdGQ+PHRkIH D2rFmnQLGn tJJlUGueUq7iyWldsPkcVY 4kQZBjxkrbNFJbgJ6rVNCm fYLovDgxQS1iLKVhcgowl8 63VoReVCB0 CYGneYMqP0MgfC7dSmJoHZ ReJZCaF1KauBUePHjwU042 TOudOiA0EZWiayPzX1QlOA FsaWduOiB0 z7U4Wb1Xx0QpcuejZ2VhsR OjMzShOzdbFGa5T0WrTzws dHI+JA52LKVpBT45VTr9UH B4iGdiIXlu QVKjQ9LehO0vAkHjMLAgEO RkOyc+PHRhYmxlIHdpZHRo ZTerCVZiUvYnwHbkDM5aMq 9yZGVyLWNv jAuydARdZuYae0agNVYgFJ ziDY4gpIniQ4KljKC6UCZx m0b1Qk53P46kO2NeuDN+PG PejSC8nTQ6 rG4cZjYeTgL5FSjmI996Ud ByvPUhDmrxg0hjt9gcwCi1 LmI5MHRcikYvmSjiKRZ0h3 JiFf06X10x IHdpZHRoPSIxNSUiIHZhbG smsl8onA7zQc6+PGNvbCB3 hLX9iF3lOaAsHrN3FHnhB8 49InRvcCIv Uagdz3npv9kngJg2FmIoUX YtldRnvVxoXGZ9w1EkGe22 I8OtsZbcy3LgSsg2ql10rD Mec9N5vMB9 O7PgUSGashbqbSWmjQlqDC 4oPLMslzhlFWTdoI5qZTMh X8e1UkKfRaP3QEfsZ3Ktzl H5HSPsgKZm EXNrwQVVrJ8rtiqch4eyrw klHfLjVPVmYQc1MFo2YXCm xYhfYqQjTYZ1SeB4QNS0wF OxiK1idCzm wvjqfM9fBrn+ISU6kIIezO TAID7jJgshtGP+PHRkIHN0 sMopZEyyYOBurV2dURJfX6 z5CtMmQuR5 FHkmX1GbaqH6YWFmnHNiRT HsvSAYhT9ajozbo0lkdval ZaEgMMIrMZc2CFa6TLYqpE duOiBsZWZ0 SbL6ZRH9dIHksN2xvVdqit fmoV9nPgn+QmlydGggRGF0 TUu5L3GuQaz6HIFlpYnfWS 0ncGFkZGlu Za1zjKnfyMjyMI6vGSDodb bmg596DsYyd6waDYRpwCSd VLqnBTS5N74vj4L4AABpUE UfUFP6eSD1 wW3giBizlstnpLUmkRwynq ZnpUooXKelWKyiE811BQRx vDnjVbGeUJc9B4WqFww2BE IzhGuzPA5o aGIzXMwtRf7fzNomyNahZW 1dEPBvxhjfr065FrPyz8bz MNKalVQaZIblECC9P96cf8 P6VCVfEWPi TNW6wHL9tX7yeBzpbqvaqZ VmdDsgdmVydGljYWwtYWxp J385FWVeqWahLeVdgNn7U8 IoWgb2MEOc iDpiZA8xdQMaTFbwCi5igU qobDelCE7pRCCcsebnr270 VhLua6jlGCWokXXyRRjoZP B0K30fc1B6 CXPnTJAlGEX6qQS9pT7wjY lnbjogbGVmdDsgdmVydGlj EFwiJRfnJ325IADweIzxUx BhdGllbnQg UQlcTHp5E5ZzCbvvfGV+PC 08ARQuDN17eIOkvAQum2nw zEb0MuFhXLBoZRC3aJeuAW krj3WgOPGu M05coCZyc0C6JEAlqPveiC WdOrJvyHF7lE7jFQlzbbrs m5eupgrgPbkaj5spfv29dS 42X43gAWtj ZHRoPSIzMCUiIHZhbGlnbj 7jdU6cXu2+ZUEsfHE3qUZ8 cG5dNTPrOsM0IDlkL031Gy RvcCIvPjxj i2fpf5ybxMq6OwD7CNZttc HakStfVDG3m4HwFz73T55l IHdpZHRoPSIyMCUiIHZhbG lprl5wlX8n Ii8+NFWlbDC6zQR2uP1bPr UoHcQ4ELxqK826KxVvnODs CtgnM97yI2BlhAQ+PHRyPj u2XOAtrVqu XI8gbYCwTJubYn3gUHO9Ir PgPlHoREueC2VjJKOzzijv zsdgaSA2CVEfSXUoyK10Ld 9udDogMTBw rOZUpU7fkhzwo8elrmhrBl RqUJJgAJf7VGn8POKmxLwr QuWkMBR3TtR0BLJ3rUBinO 1hbGlnbjog kF9hL2OoHRAgchrcGs08rH 6xYbYgMdO9GHpgQmo+Q1JB T1TXGvUzFXMVJZLFMbMvOH lDSEVMTEU8 M9FaOzz7QYOhoCyxRO1wmP EkZIpcNt6igBjhkNrsMK8q SOGofukwSGRwgA7wETCzxZ McyBlcHL8q VSMyidrep029CwZlPBL3ON WxdXGbE6IujZ0zAwLlLEHx BPDvJ0XwdLSvKIxtW737GF vwQuN2VLXk szOrL1WoHXHryJbwJyM8n9 O4Fs9qDn1dYL6jQHx9YP15 AP44eWQsu9T8mZD3W1JcOV Rpbmctcmln oOB3DHBmFFVbaU33mGSqNS qzXp5gv6D8m025IWYuSMEl jM89Qw3lxKjpUOJnwWZXaJ 1lvfvgm4su hihsKdBhKUCeTHo7SLg7GO FdtJgnYuGxIRF0WsA5KHR5 fPXwjR0yqDhoqyfomE6pCd c+MjUgWWVh jwV4H1XjByz4UPKuzSohVC 5wnZUlPQrtMk8ljJyttUhe MN9oODQttszqCBSpiB3iVE JvdHRvbTog GT9oRFMckcjut574SeGbHZ T7PTLaiWBhA5VpbZ9oVfRk NCAfJCFkD0ObfMWbDLxeQ4 71KNmnLhO7 FUTqpkQcV7PrCUCbpXgoZt Z1c9Y1Zb8HLJ8NQBG5Q3Zp Puc1VDMkgBcnMU4vbWVgNU wxYd2cuVfb cGewJJ7qQDDzwwtgPGWchA 1zEDRrxUMnuRygDT4pUMNd rnvql782YuHmUFH5CZMefM OqZ0EobM3g KnVpTVIcZCYkL6BozXVxXI gbE391OVjiMaP7TKHhwrFc Y7WfXVEbsOtpNfG9b0G1Ne 5PUDwvdGQ+ TQ21xu00S9OhSrogNuj9ET VsGML9qWE5wJ9dKFNcXAuw b9D2hCK8P8CsyeDeii6ni4 xsYXBzZTog Y93isOGpo8Q9HHEzmWP8WQ PdnMbtSmRetJ92Jqm+PGNv eVufx7CjWipqd2pve8kzjJ s2CvMrDOXm iwHwdAwxUCJ4x3XcWj24I5 9sIHdpZHRoPSIzMCUiIHZh sVrcwl0uwW2oIe7+PGNvbC J7sTP3uU1u LlOzBpM0XZovH275GxJykF FfPkbit7ezb6mgeHd8ViYe UPNcnxTsrLdkWJM9w1OaGy 39S2IvzGer y4UnSnk5yi71mDPqq4M3oN L8N9EgQDDtatzleAHbwNlj QO2kIHWbclluDCWfgG1qVU LvQ7w5TzBz CcD4GGjiA6FwuhB7ULFavN EoHVDtxBYUoX4fiilib6dj ppolVnVbXSQvDOi1LLh4NV FsaWduOiBs ZDF0JeO2WEM4rQMlgB8ulU oiyflqlG9zUuf+UGj4i6mk kQDnWB3qoSZ3NA84IC03bW Hlv5P4bRM9 T4DaJSTwmxrbkwdxsVV5ZS KzIBCxlZ06Vv1cqXwjBk3v WCEaKXK1YPLhtXOmQ5GkcC 9yOiAjMDAw FJKlH8VurCBqFAjtQ558HV nlXwJ2BCTsjhCsA1KzPPGy cXqtFfY0s4Z8Za0ELO48UN 80RN49lJOt y9D9tKY0U6JgMEOmojvtzm rqpAQ3SSXoWZOzuY53Np0s yEtlZe9cPRSqBIV4NWFwvH FcC8PnzI8u AzMmYMXvODZhD8HlvFItKG srK117GCmsCuD8UREkddOv T9UbNXIwxYfjLfI5b5R2Zg 0OUg78CY30 CT82rZAoc8H1gON8J2MrJH VgjaamxkupjEN3GMNeGOVw oQ12Dj9kiOjhYr1dFTFtNK L6UTAwhPNd V2HtdZ3wXiZrPBWpJKMjJ1 JiwATdPPlfB437UBwbUeT8 MBBiqhBeN4BkEJGdjFjjUu X2d6C6Gn7Z VIvgxfr1E5OhLjyydNW+PC 95HNJjTT88fWMbfXIid1tj dAx5CuTtLKJvPTZ6rCnnLN kho7TsAFAj Y29 (more content not included)... [facility] Progesterone LCon 12-17-2023 Progesterone LC 9.6 ng/mL Invalid Interpretation Code [facility] Comment on above: Result Comment: Foll icular phase 0.1 - 0.9 Luteal phase 1.8 - 23.9 Ovulation phase 0.1 - 12.0 First trimester 11.0 - 44.3 Second trimester 25.4 - 83.3 Third trimester 58.7 - 214.0 Postmenopausal 0.0 - 0.1 Performed At: [facility] [id number] [place], [place] [id number] Sarah Beal PhD Ph:[phone] Performed By: #### 3 [id number] ####[facility] (DEFAULT)[address] [place] [address] Provider Orderson 12-16-2023 Provider Orders [id number] 05 [id number]#1.0 0OTGTIFF [facility] Coding Summaryon 11-24-2023 Coding Summary HTMLBase 64 DlwmzypqYRm2jJx+PGhlYW Q+FW2JNAIuT52beDXccV6o A5CXZRwAGwjtVQIYPXlUWj BiqrXjGH4nrHWvZRFy IC8+YM1kQKOaMjswfWQoa9 W0lGX1P98afd9pSHjrfPR1 KDShCuInqqiwy3newAj4QV cuNmluOyBt TVRvuI58MIS3dJ67Cm17zQ KeyWDor1artBo6GqCgQRNr HWV8yGgfXJicb6PsSGMcW8 0crSUbm3G2 EXGbuDzcnODfQqHdqFX5oN 7rCBpsdoupl0uhdoqlNyo0 tu52oRKbu8I1kMU6T6Ibgn B0JTFkkLXh JhiapDIBnU2dbfdlw7otmq ghBrYeOMMoHKs0RGp7IIUm rJobEsHlSA36DOZ4NJEmhn VtG9WrIBCe jZayJzP9z0K3Hi6YF1HDXy qvA9ZBLSNPIBdwcDK+PC90 or10M1YaKqrcEza4SKKiEU P6iAY6hL0y KATdIPocs5J5eNN4H4Dlxg Rtht1ct6fcEDOjGFdnU67c aFMpj4O2ANZzxOR0RCSjiU kpMcJkmD71 Oyc+HLTckCqng9XbKzhtd6 jxz1onnKo3PqycVMYzojGx qScsJCF5v6DxKi6kHWDxjW S0sLG1nS4u MhAiQjT7FCsyP141UdYxzU MjVhgpL91fT1GjoYU+PHRy Zrg4GBRhiHaqUQ2qL6PpNS RpbmctbGVm qMhiOT5tLYOcwmwcGYQfpK 0uWTAkC1h4NxPxSdC0MVfy H1TsTYZxtngsYe43vB6hOu ArMvQ3UDhl T8UatuY7EXScvIWnKJauHI Y0B70sw7I1VGUqTOOsGQG2 pJT0hK0vpTicojwbgSDzyR sgdmVydGlj OBdwOMepC249TQMpbIhmOk NvZGluZyBEYXRlOiAgMDMv MjEvMjAyNDwvdGQ+PHRkIH R0gFziKNQe fSBbEVfdDr6coDlaaMbnON 6vYEThjjciHCElxB7oDAQo lORmlKqjUI9jDPHsulmrh8 06PxJpJWW1 VSQtyMKtO6NutM9nLlVxGE EtPDQwW9XrxFCwJWcjE195 DZygSnP7FAYwvyJoQ4KpIC FsaWduOiB0 s6D0Ch3Wv9OdyddvU8IjaI DtNvLpVgxqNBe8Q3SkNvms dHI+MN24JKXhLV94XSc0NB Q3pPtjJDbi DJQiA1SaqJ3fFwCpPVMgNR RkOyc+PHRhYmxlIHdpZHRo MTcpLKPtIyBerCqsXQ1bQg 9yZGVyLWNv hOrshHDgJvFqb6hbWDFzSG xlAI4snMfbX2HzqAG0FVLf x9p0Uy17G16nX2JklZT+PG NtmMY2iRO6 fG1lBnVvXdR3NWghL780Bh VmxKAbPedlo3zof2otgQl9 OdB3GYVoqaPrrTloTTK2c4 DsSp93W35i IHdpZHRoPSIxNSUiIHZhbG dzzp7eqR1tXz7+PGNvbCB3 dJM9aM8rSjQsVdT6PSzmA0 49InRvcCIv Pkzfa7vfd8txaXi5DdRaCE ZtueJbfBqxKKZ8y3TpHn56 R1MwbUihp7RuZvr1jh69oB Yet3J2hXH6 N7FeUBIzpxzuiINzjZctRM 6jURZjtbxiMZPyfB6xQXDj H4c4NxXvBjZ7LLxtZ6Gtxo I5MVIhpSUq DOHapLKIeQ9dgudjn4sesz dfDmCnFCKjONn7YZn2GLTq zMzfUyJdPFC1YwL3SUR1gD GnqR1qmJrh rvbvvX3zFpz+NCP4jZQfhH NBYK7qZkngrXE+PHRkIHN0 vIqfUHmdXMWskQ7gOMSwE4 p5WmKaNaH4 OJnzU8PwyvN3ULOmoTNzZS AazPFTxE9snjjqg3fhvmyx IfSdZFOlIDs2IDu3MRUixS duOiBsZWZ0 GpM6HJF3sKYduE6quUpwak jmiE1uUcq+QmlydGggRGF0 IXz2E9VePxt5SMGjfWroCB 0ncGFkZGlu Ch6hfPqdbKvsSN3gDRNnme sum272DnXri3chXPAvdBLo GNtgEUR1F45oh3P9AQCkEN WlDTE1tBE4 nH7qtBredwcjpJDadBkhnz IooIkmLRstVDxsE546LGJd iXesDzGxNWr1P6IbYcp9OT ZomQedHX6t kFHeTXmxTi2gqFwyqTfrWZ 6fBLTogjbpl047HcMre3pc HAPuqKBsOVytTOD4V81bo9 K7CNYqWXFd TOU5qIU9zQ2vhBdvplhxbO VmdDsgdmVydGljYWwtYWxp K198XYFqvCpwWtUaqLn2F2 DlYoo8NALc eTciDT5ijXXpYUvhYd1ofS qitDuiMK8iZAIispcnt902 IxLuc0rwGJJkcRQyAHlgBW Z6L75za5R5 IIMaQOWjZFE6nWT6zO0kaA lnbjogbGVmdDsgdmVydGlj PIunULrlW593RFScjYzyYj BhdGllbnQg IBezHVg1H5YcXhuumRW+PC 05WJFuHO10uGMamPYcb8cu xNf6ClOiDQNwEXY6tXdoUW jup3DsBSLs K82uoFZqw3I9ZDYdaDtenL YlBgUdtMO9wE8oGOitbclh j3mdtwozZtgfx3kale53bF 42D94pAKfn ZHRoPSIzMCUiIHZhbGlnbj 6guE8aPe1+YHLblXZ9rYT6 zU6eGSGcFxQ3RCneD396Ei RvcCIvPjxj q8tvt8irhPm3YjD6ENHffw UamMfhPPZ0d3UwRi92P20k IHdpZHRoPSIyMCUiIHZhbG ujev4weG1m Ii8+YFPovYA0xHX0bU4mSr SvDlA8TZypQ551CdByiZIk CvhmK45eV0PisGR+PHRyPj l4SZIxfIgw OV0gsPUlCCtnPw1mQEF3Im TaAdKhWPqzA9QgUVUjzmbl xxyxwKZ8UXRlJJZkeS70It 9udDogMTBw bDMHzS6xvbgld3folznaXh KzWCZlFYd2RAv5HRRfuLwj SxUsREN3AeG4MIK4xVEmxG 1hbGlnbjog aR2oY8KmKMCdwhldOb25bS 7qRuKoJxU9CEmzJul+Q1JB O9MRGsBeJMFTCMCVOuKyMF lDSEVMTEU8 N6SjQmm8HBBvcTjwAU1gsM GiPMyfXm7cvRufyQsmKQ2h FGHkrkybDSIysT3vQVSxiH GvlFshIV5r MTIncxdio104TjLfDDK7GV TafDGwW2YfqR1hYhTnOPNy IVMbP7UvbZDlZAqkQ541XQ kaLuV4CPUp ytWyU0IpCCUhkSdzPdI5u9 O9Un3sUe5uLI5pBTe4RV17 KP47rGKpk9N0ePJ8R2WxHL Rpbmctcmln fXP3ALVbWEFuqR52eOXrYI tqNc1zl3L8n752PQAgIUHy vC31Ts6qbXbaABOgoWWGlH 3ymmdwv4bt dvmcGuCoVNNlMPh2CUx0HV XqlMfmTjFzAWY4VpG0ZYR8 hPHvaK3qdNdwgnjtkB8tLz c+MjUgWWVh eoG9R4XgGlu1DPOseBnjKF 4qzWDmCZegAp3opYpopIqu PA1fKATjolzpMYQnlK8mAF JvdHRvbTog DW2lDKNzawigh363CzTwMF O4CCTldIEiY2UyaS9vLaBz FGQgIGCyJ9AgtJPlEUhyZ9 46WRbmErB9 XVLtlsMyS8YkNGNimRepBu R4m4J6Xz8OCB0DLZV8G9Ve Xhb9PHVrgEqfVJ0nlQHyTQ bfOj8eeKgm oDdeUO8mENXbwrxsWWPqtP 2zGUGtpEUvxNpxHI4pSAMb qdgqo695CqPvTWX2OEGyfQ NxA3FkdP4i QjWkXVXgCJKjM4ZvlSRkHN tkO875LZvvHoL6PHLwtqTu I8XbSORrnWikMpQ7c7O5Yt 8QnGVkB3Do X2h6F1ZwAknagPM+PC90YW ApXR42rRBqrMSjl7powGc2 NfVuHPEdFXG2eTkrIEnrd7 UqVBGqA61b kZXwe4K7TKMmfGjmbQNzZx LmzWO2cF1rIEjeumwyf9li kbgnFcjsb4gmaa88oB77R5 9sIHdpZHRo YXZyRZTnMOZsmJgmxo6vkA 9wIi8+MFFixOH7fIC7uU6v BvWpZuG8BEphS330ZtKcwB UzZnrlc0fd f2prwNo0WnHyQPLiecUucI wsCTZ9t9FlOj12C87pZUzf ZHRoPSIyMCUiIHZhbGlnbj 4vfF3jTv2+ CK0wz1pcov92xB44dQZ+PH ZfEDC6gCohPPohFNVsjR6a XJrbBkQ1ICSkUyBamZ47bM BdTNhbSw3z qBvuuNihDE6bDSZjwdejz3 15RxKxh5iiGJZbjDBqUSbv LHP4I56pu0G4EHAqLYOqKB M1bGX3yR3l bGlnbjogbGVmdDsgdmVydG hsGSazLFphK231QOEziThu WbKigXGbI7qozfLSOA7cRa wvdGQ+PHRk WPB1lAfmRYqvUJVcpB1iUQ EqH4p3BaFfDfF7TZubB1Uu wvC3VOYpjGSoGKJjgVJRsH 8wbwxmg4yu ltxbDzWxIHPeCIy0RSy7MV BcsUchHrAwRAK4MwQ7NXL7 yYMxhM3bxFtbfhbieU0aSm c+RklOOjwv dGQ+PWVyVCI5mOlfEEvvDM JtzW2qKDPnZ5c0JrBmEzM1 EJexU3RnhhO1ENLlzZAuUE QetQWJiZ7o hygby3tbfdfqUcEsBRGpTV f4UGk9FRWsvTerBhEcHRN2 IqK4AZV7hTJhfZ0rwVogla evgH4lJfp+ TVJOOjwvdGQ+QHHeUWQ9fL gjXXxvKSCfqS9cJNUlS8i0 QaWyZoR6CPaoZ9AyxlG7KN JvbGQgMTBw lNKHjQ6mqzusn0uzwjddXe CoVAEyIGu8CNy2DKZlbEus JxObQAB1VhZ5RXR3mKYjgE 1hbGlnbjog qI3aIbf+ACM6BCH3GI75WM 03C2FmSdyjwFPpmQC+[facility] YmxlIHdpZHRoPScxMDAlJy NnvUzvCH3w Ym9 (more content not included)... Normal [facility] ED Clinical Summaryon 2023 ED Clinical Summary [facility] - Emergency Department [address] [place], [place] [id number] ED Clinical Summary PERSON INFORMATION Name: SHERLY ASTUDILLO Age: 23 Years Sex: FEMALE : 2000 MRN: Acct#: Visit Reason: Laceration of finger; LEFT INDEX FINGER CUT Arrival: 11/19/2023 09:14:04 Discharge: 11/19/2023 10:10:00 LOS: 000 00:56 Check In: 11/19/2023 09:14:04 Checkout:11/19/2023 10:10:00 Address: [address] [place] [id number] PCP: Anthony Gomez MD PROVIDER INFORMATION Provider [...] No Known Medication Allergies PHYSICIAN DOCUMENTATION Patient: SHERLY ASTUDILLO Age: 23 years Sex: FEMALE : [...] indicated that she was using a box inspector. She used a sharp knife, and accidentally [...] History Medical history: Resolved Ankle fracture, left ([id number]): Resolved. 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 Surgical history: Cholecystectomy ([id number])., Reviewed as documented in chart. Family history: [...] Polycystic ovaria (more content not included)... Normal [facility] ED Note - Physicianon 2023 ED Note - Physician Patient: SHERLY ASTUDILLO Age: 23 years Sex: FEMALE : [...] indicated that she was using a box inspector. She used a sharp knife, and accidentally [...] History Medical history: Resolved Ankle fracture, left (68613548): Resolved. Ankle impingement syndrome (698515510): Resolved., Reviewed as documented in chart. Surgical history: Cholecystectomy ([id number])., Reviewed as documented in chart. Family history: [...] Alcohol Use: Current Comment: Gillian - 11/19/2023 09:Marisela Morfin RN Employment/School 10/28/2021 [...] and orient (more content not included)... Normal [facility] ED Note-Nursingon 11-19-2023 ED Note-Nursing Pt ambulatory back t o ED rm 6. Pt C/O Left index finger laceration. 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 The wound on the index finger is a straight line of 4cm with a width of 0.2cm. States last tetanus was more than 5 years ago. Pt is A/Ox4. Normal [facility] ED Patient Summaryon 024 ED Patient Summary [facility] - Emergency Department [address], [place] [id number] PATIENT DISCHARGE INSTRUCTIONS Patient Information Name: SHERLY ASTUDILLO Age: 23 Years Date of : 2000 Reason For Visit: Laceration of finger; LEFT INDEX FINGER CUT Arrival Time: 11/19/2023 09:14:04 Primary Care Physician: Anthony Gomez MD Attending Physician: Sreedhar Cheney MD Comment: Visit Diagnosis: Diagnoses This Visit Laceration of finger ([id number]) Laceration of left index finger (S61.211A) The Pharmacy at [facility] is open Tuesday through Tuesday from 9A [...] alcohol and/or drug addiction problems; contact the [facility] 28/03 Crisis Hotline -Text [phone]. If you received any narcotics, sedation, or [...] legal documents With: Address: When: Anthony Gomez [address] [place] [address] [phone] Business ([employer] Within 5 to 7 days Comments: Reviewed [...] and treatment you received today in the [facility] Emergency Department were for an urgent problem and are not intended as complete care. It is important for you to follow up with a doctor, nurse practitioner, or physician?s assistant director of residence life for ongoing care. If your symptoms become [...] so we can reach you if necessary. [facility] Emergency Department has provided you with a complete list of medications post discharge. Please inform your hazardous materials tanker driver/provider of your visit and for further instruction [...] better healing. Unl (more content not included)... [facility] Coding Summaryon 11-02-2023 Coding Summary HTMLBase 64 MxtmgxegXKt7cYg+PGhlYW Q+XW0YWDGeS97wiSFnhM3i Z2MKKNhNMdjwTDOCAXgCHe CndkZvAD8yyUDlZYPe IC8+GX9nLJCbFoqfdAUby3 C4aXV8L05cgq9zREsspWU5 ZZTwSxNhonbfb5lzjGm9YZ cuNmluOyBt SQWogO23USM4eH98Lk25cZ BaaWAhj5kuxPb6BhMaAKXp DDE6mQqsQDuvl8ZjRSErL4 6laKSxi0F1 GHVqqQbuxJSsXdIsmZQ3nW 0hCPkoppwwj2deyclbFak5 ob93mHNjh9F4hMS4F0Dard O1FCJrsLXt InanyPXSaT5fsyqyf3hvrr usZdUvRFWfKMu5XXn7HSCg kWirDfCxWP33JXH6GQFsai IcB2HeBCId xKhdScF2x4X8Na3KG1OBHz lcO6WOATDSHKagtVY+PC90 lg17M2DcKkezQjc4NMDgJJ Z0pCO4kY3e PKIdXMrgw5C0uSB9I6Plaj Ozzd1al7jfVTKxSZvqJ18e pFFcy0T8IVQvdOA2LDXpyL ilReKhjD87 Oyc+WWUytPjen3QeZlfcf9 xgn1egtVf8DrstIZZjndDt lZkyMMI9x7AhWf9bDLKqbF P8sEI8mL9f ByRvLmI8NJxpT264XaIkfV WuUuvvA94jU4HutKA+PHRy Vfu4IRCmwHgxOH5jG3OiXU RpbmctbGVm eHwoBU9jSVCundfuCNLpjL 9gJCNdZ7y8IcCeVaW1MThp H2XjHJOegahmXh77vG8kKv VeOeA7IZuo O7TewoF7RROkoDAcYQinGM E6R91iu0Q2JHGgTZFsEPJ0 rOF1sI8zgKptfpfxhCVpqS sgdmVydGlj OAioPBhdY404KBZkoCweGe NvZGluZyBEYXRlOiAgMDIv MjgvMjAyNDwvdGQ+PHRkIH S5fPttEMIl qPNeDPzkTy6luMtgxGquTP 9jGYFmclzbNGBkbY3hUXUf bJHajXaoQE1cTCJlbtiso8 16IcWyQTF0 CGXwaFKwM1FvlV1tWnGbII RmOYHnB9OdaOJfLJgvG542 XCflClD0LIBapaLgD2HzMJ FsaWduOiB0 o1Y1Bb6Vb6TvjwxpX5KkhA JcFjSlUaqtOLe5K4AiGzir dHI+QL00BDAoPQ91BNj5IZ M3jDzcDHzi PIOnV6RupS3rAuGsFOMdFZ RkOyc+PHRhYmxlIHdpZHRo QXxiKYXsVnQjiGksSU2wUm 9yZGVyLWNv lKbyzKBoEjAsa5xcKSGjDU rwKZ3gzUulS5NejIC1PVNh j4v6Bf62A55dC9CbsSS+PG IyeXS7wWW4 aT6eXnYkNyO8PUmzZ441Ye PexUBkHfdhp8ppu6ssfOg8 SgZ8IJUkvmNmlNwlEKB3f3 JxKe99D99p IHdpZHRoPSIxNSUiIHZhbG uuny4omA4oJk8+PGNvbCB3 jLC4jQ9xYiWdJvI2IApaV2 49InRvcCIv Uanyg5trm5pnlSa6RwSeMM IdqdNbvAveSHC9f0CnWw39 R6UymFxwg8ZhQui0sg39gU Ogr0K6eWL1 V4LoUVAneyezkNDcaGueVS 0tIQHellggGLJfiU5wCJDi B4j6EiBmJoF7DCjpI3Csma N9QNNpbDLq FHExgRNMlK2hotfzp1pqms ekXuWfLREcSGh0TEx3FZWx sEemEkHvUGR9UpP7LZT1kX BwwF0xtLkz zafvbD2qOeg+MOJ1aURuxQ JINI0kGoqveVM+PHRkIHN0 mDwvLXskBHHwfQ9zXZFbQ1 b3CvShYwY6 JEhtM5SdidN0QRKefNGmUN OyzQJWgV2dtqnih7cvfmbj EsMrGNYbLAj3KIn3HWChrM duOiBsZWZ0 OeJ6KSE7sIPurI7mdEwssx epgN3xRtl+QmlydGggRGF0 ADs5L7EwAlo1EIImiVobJG 0ncGFkZGlu Wa2pmSbitUahBE8jLPBtwb ngm761RnBge0dkAOEhbUPw UPpeGAW0E62rw6U5MJJaGY SwCJJ2sZP6 rM6tcWqsollnlWKtzInywe NgaWgiVQxcKCnnV772FDFe jJyqHeZsFJf3A3EfKmm6LD GkyBsoVA4q hUWzOLofQj6ckWoqbDawDT 6cVYCqosxrk727ZoQfp6dp UCFdvGMnFPmyPNC7R31ch7 J9DRCkNHAf DCR9cTR4cW5pkGhajswocR VmdDsgdmVydGljYWwtYWxp G040HJWinZxaDfMemUq1S4 AdBlz1ARIi oCiwEY5epIUbMOjmHr2wtA yxiAixON9aBKPhpacaa639 RwFql4jnBMJavGBvVFvkBH F2O31zl7L7 EHXuRJJaJJG6rPD2pA4klH lnbjogbGVmdDsgdmVydGlj BMxjLUgeW549FHPbaIrjHh BhdGllbnQg FEhiNLv9P0KrLowvhGK+PC 31XKCzSR16qMReqQKqf2an gPi1AlSuOAKiBRL1eWlvQF lpg8YtCOAa M16vlRChe1B1GUWqsCetiE LqGpUspXX7vA1zRQqxpqsh r9wjfgcuMlypb7oodg16bZ 65N10eRGwc ZHRoPSIzMCUiIHZhbGlnbj 4gkF9eAx6+HREyvTU8xED2 nG9sXHOdTaW5WHbsP000Np RvcCIvPjxj n9rcn2liaZr6EdL8ZLCbws QxpQojWIC4w6VdAz88X07x IHdpZHRoPSIyMCUiIHZhbG hdlb2eyN7g Ii8+CQCsaHX7eIY8jF0wZk QhOmA5LRtuU200AvKjjGNt WdwpD41hW9PzeIB+PHRyPj l6OCAonIos YL1xvJNaAKylMo2vLCZ9Uz KpVhVfVVmeK7NtBVYljjlr ltovlML2NWIgREStxD38Qv 9udDogMTBw kQRHtO0yuzjsh6kvaioyQa DuAEVdEUa3RDk7QVMycEgt IxZbIXQ2LhY6LCP0gCDyzG 1hbGlnbjog fZ2nT3FePGWjudozAm20rW 6aKlKaLiT4PRgaZjy+Q1JB L6JLAzCqJQFZDKSTJfWlHT lDSEVMTEU8 B4XpGcj5NGYatVgcMD4qaS AaHNbcOs1tsRrrkCcvYG9g UIIfkpzdUDKunT5uMSAykZ DnmNdkNC3j JDBdqrqfz286MeJxVHM3BL RgiCYjE3BobR3xIyIcGURx YFXeK6AkeNNlDAxdZ555RN mbEzI7ZEMi amZsH4CnRTFblUmgEaI2t9 V8Wf6eHh3tDH0jTGs9CV60 FB35jKFrx0A0uUN9L7SrXI Rpbmctcmln tIL3YPUyOENanK91kIWgEU plPd8ah8M9t912EQYfKUQp jO47Jx0aeBnpBYVakTUBgT 5xdeimp1wh kwirXfVzIGVsRTt6QIb2MM IfzNqgOyZnRGC8AeH3WAH1 iZIziC7xuJvmmlekyC3yMk c+MjUgWWVh eaY5T9GiHsa2YMVpsNojWJ 7weRTaEYndHr6yqNvogRku ST7iHZXzqsnoTVFalN0qHU JvdHRvbTog SO9lLDEobxhdd002AbWuAM X3VBOzyXOwE5HtqL7kQjPz AZSrIUPmL5PbxRYeQWbjH3 93UNclOaU6 CFAambYdG6UgAAXjjGbhCp G3j0H4Ri2SJG6PMRV4A0Se Mqa5AQLwlAeaJO9nzJHdIP akDe8jrWlm eXpwNP8pJKYbikraOOTlpG 5qWAUmuWZhtEdkLP9jXTHe nmjda217WtJiPRF2THEsoL VfR3TblG7o MpQtPVBgWJRjN0NtqTLiWS cpE851NHmlZcI1LGZxlyWu I1ShSJDmwJgvXbC7t9J6Kg 5PUDwvdGQ+ NI19pw24N0WsQftuNxk5QY LxZNB7nEH6wK9cBTQsISom w9W5qLX9O0OcfdCibb0bv5 xsYXBzZTog K32pjSXuz0Z5XVJybZO1VT RubMnnRqQbbE94Nmg+PGNv zNrjl0PfSbvmc0mnc4optW k5PsZlLREe maOkvAwqWNL3u9NeOn86P6 9sIHdpZHRoPSIzMCUiIHZh uErhuy7qeE3uGf1+PGNvbC J4mWZ8uH8p XwGmIcS7EOhpZ813AxTwiO LvJcolm6nhj2qzcMa9VaTw FEQuixJtqHakYDX0i5OlOv 40M4PfjYse d7ZdPko4en13cMLaw0L1mK V0F4GdGPBlxbjcvHUsmGwy LH1bLPMznglaRSCxdU6eNY AkM0l6KgNa QmQ8YCmgA4ElwlB3TAEyuQ FoWAWkeFRGfW5ksusdq3fa tgoeBnIpWOKyRBq6TGd2PQ FsaWduOiBs ZQW5IiP7DAA4xYHwsH1igG uiffxzuC5aDyu+HZn9p3pc rKDwAH2mhXD1AY20DE53dG His9Q8gSW7 L8YtPKOdzvoxvjcttAB7ZO PvVOPbwO37Cm9lrKafIh0e HDOdKMF3ZCXneQLcQ3YgcO 9yOiAjMDAw WMXmH7NjxZHgMKduO301DA tsZiC1CGMuzaVmD5DbFJJx nPznDjD2x8O1Cw6GAY13SA 33WG20kDQc j0E1lXB7U1PiQTAzgwdvih xquKU8KCLlHJLzuH27Ys3s cBdrIz1pGLPgILV0CUJqxO EqG5UghA9z EhTkSGNvRIErR4PelKIiPT tcW379WMieRfD1WGOujxSp A5TjUQIrgCesVsU8a2G4Sf 4DQn64QZ70 FI24aHAeb6U0eIT3I8TgFS XrkbozzbgkmFD2QHIgAZGh iE47Xt5upCgtTo3xWTAnYO A2RQKofLZa Z3VhaF8oRlPaZJTiDECdR1 PqbODsICfjR888XOqrClH6 XBSlvpXfM2LuBXSbxRcpMk K1m9Y4Xn2M JPledme7G5OqOdodkCZ+PC 29LJOqAO11oHMjsMBlc1qu bFg8XyFlXCSiFXO4xLesMZ jyo3ZuPVTk Y29 (more content not included)... Normal [facility] Dehydroepiandrosterone (DHEA ) LCon 11-02-2023 Dehydroepiandrosterone (DHEA) LC 456 ng/dL Invalid Interpretation Code 6127 [facility] Comment on above: Result Comment: This test was developed and its performance characteristics determined by [facility]. It has not been cleared or approved by the Food and Drug Administration. Performed At: [address] [id number] Gustavo Donis MD Ph:[phone] Performed By: #### 6 [id number], [id number], [id number], 2411768, 96088937, 06895792, 1096771, 6002455, 74528866 ####[facility] (DEFAULT)[address] [place] [address] Miscellaneous Testing LCon 0 11-01-2023 [facility] [place] LC COMMENT Invalid Interpretation Code [facility] Comment on above: Result Comment: Test Ordered: [id number] Anti-Mullerian Hormone (AMH) Anti-Mullerian Hormone (AMH) 5.22 ng/mL ES For assays employing antibodies, the possibility exists for interference by heterophile antibodies in the samples.1 1.Aubree Norton Interferences in Immunoassays - still a threat. Clin. Chem. 2000; 46: 1268-3022. This test was developed and its performance characteristics determined by [facility]. It has not been cleared or approved by the Food and Drug Administration. Reference Range: Females 20 - 25y: 1.23 - 11.51 Median 4.70 AMH concentrations of >= 1.06 ng/mL is correlated with a better response to ovarian stimulation, produced more retrievable oocytes and higher odds of live according to Kelli et al. Fertility and Sterility. 2010: 94:7033-4097. The current AMH test method correlates with [...] exclude an AMH-secreting ovarian tumor. Performed At: [address] [id number] Sarah Beal PhD Ph:[phone] Performed At: [facility] [address] [place] [id number] Wagner Forte MD Ph:[phone] Performed By: #### 1 [id number] ####[facility] (DEFAULT)[address] [place] [address] Dehydroepiandrosterone Sulfa te LCon 10-29-2023 DHEA-Sulfate LC 252.0 ug/dL Invalid Interpretation Code 84.8-378.0 [facility] Comment on above: Result Comment: Perf ormed At: [address] [id number] Sarah Beal PhD Ph:[phone] Performed By: #### 6 686390, 79788054, [id number], 2830773, 38943355, 52424853, 3400397, 5506394, 38068002 ####[facility] (DEFAULT)[address] [place] [address] FSH and LH LCon 10-29-2023 FSH LC 5.9 mIU/mL Invalid Interpretation Code [facility] Comment on above: Result Comment: Adul t Female Range Follicular phase 3.5 - 12.5 Ovulation phase 4.7 - 21.5 Luteal phase 1.7 - 7.7 Postmenopausal 25.8 - 134.8 Performed At: [facility] [id number] Sarah Beal PhD Ph:[phone] Performed By: #### 6 926524, 75724107, [id number], 3266608, 17338127, 43534467, 9688823, 0644717, 49390958 ####[facility] (DEFAULT)[address] [place] [address] LH LC 5.5 mIU/mL Invalid Interpretation Code [facility] Comment on above: Result Comment: Adul t Female Range Follicular phase 2.4 - 12.6 Ovulation phase 14.0 - 95.6 Luteal phase 1.0 - 11.4 Postmenopausal 7.7 - 58.5 Performed By: #### 6 809621, 72603990, 1313101573, 0569208, 45074594, 58844105, 7359285, 5721719, 03827616 ####[facility] (DEFAULT)[address] [place] [address] .Auto Diff 1on 10-28-2023 Auto Saunders % 6 % Normal -12 [facility] Comment on above: Performed By: #### 6 314784, 36285457, 0231250543, 3752844, 64363210, 84302428, 6064389, 2976013, 34227067 ####[facility] (DEFAULT)[address] [place] [address] Baso Abs# 0.1 x10 Normal 0.0-0.2 [facility] Comment on above: Performed By: #### 6 085656, 35098298, 3667412043, 5807677, 19888915, 77583494, 0283737, 4911237, 69828687 ####[facility] (DEFAULT)[address] [place] [address] 40007 Basophils/100 WBC (Bld) 0.8 % Normal 0.2-2.0 [facility] Comment on above: Performed By: #### 6 596673, 05082112, 4224735202, 2500836, 46035899, 86888464, 5244374, 3820555, 86967050 ####[facility] (DEFAULT)[address] [place] [address]0015 Eos Abs# 0.3 x10 Normal 0.0-0.4 [facility] Comment on above: Performed By: #### 6 176651, 71345916, 4546659676, 4731686, 32172853, 32285249, 5243584, 8146470, 43858951 ####[facility] (DEFAULT)[address] [place] [address]3431 Eosinophils/100 WBC (Bld) 3.9 % Normal 0.9-4.0 [facility] Comment on above: Performed By: #### 6 194999, 09183872, 9115572650, 5679444, 06347923, 56071249, 5937440, 4891321, 42012829 ####[facility] (DEFAULT)[address] [place] [address] 43441 Lymph Abs# 3.2 x10 High 1.3-2.9 [facility] Comment on above: Performed By: #### 6 153622, 94487881, 0004377654, 1020161, 23816319, 89087752, 1583268, 7634780, 55529299 ####[facility] (DEFAULT)[address] [place] [address] 95634 Lymphocytes/100 WBC (Bld) 42 % Normal 14-48 [facility] Comment on above: Performed By: #### 6 409732, 46618521, 3749029306, 9746421, 41294636, 90357135, 1747846, 4310699, 84154654 ####[facility] (DEFAULT)[address] [place] [address] 14112 Saunders Abs# 0.4 x10 Normal 0.0-0.8 [facility] Comment on above: Performed By: #### 6 606550, 25649753, 3733021522, 3722532, 49924772, 81652721, 4694441, 5630087, 04070009 ####[facility] (DEFAULT)[address] [place] [address] Neut Abs# 3.5 x10 Normal 1.5-9.2 [facility] Comment on above: Performed By: #### 6 493677, 96289734, 0258272384, 2962043, 63620737, 19480891, 4291715, 7629959, 17218261 ####[facility] (DEFAULT)[address] [place] [address] Neutrophils/100 WBC (Bld) 47 % Normal 44-88 [facility] Comment on above: Performed By: #### 6 399129, 93413772, 7653267389, 6730153, 96661408, 61083674, 3126956, 3340220, 18784286 ####[facility] (DEFAULT)[address] [place] [address] CBC w/ Auto Diffon 4 Erythrocyte distribution width (RBC) [Ratio] 13.6 % Normal 11.5-15.0 [facility] Comment on above: Performed By: #### 6 184519, 21558471, 2491612564, 0355812, 95834437, 85819277, 3050095, 7046603, 10243698 ####[facility] (DEFAULT)[address] [place] [address] Hematocrit (Bld) [Volume fraction] 42.1 % High 33.7-40.4 [facility] Comment on above: Performed By: #### 6 032365, 02944507, 0233858725, 5479659, 06276860, 64323617, 3292509, 3022837, 22741734 ####[facility] (DEFAULT)[address] [place] [address] Hemoglobin (Bld) [Mass/Vol] 14.1 g/dL Normal 11.3-15.9 [facility] Comment on above: Performed By: #### 6 918350, 84989257, 8548068216, 6028165, 62061076, 12726341, 1472788, 4049649, 21814925 ####[facility] (DEFAULT)[address] [place] [address] MCH (RBC) [Entitic mass] 29 pg Normal 24-34 [facility] Comment on above: Performed By: #### 6 765335, 77267137, 4250300966, 9692171, 68029661, 93118184, 6485686, 5236069, 69158394 ####[facility] (DEFAULT)[address] [place] [address] MCHC (RBC) [Mass/Vol] 34 g/dL Normal 26-37 [facility] Comment on above: Performed By: #### 6 116733, 85362822, 3159335988, 3224312, 84331150, 11096544, 3351841, 8439769, 79169189 ####[facility] (DEFAULT)[address] [place] [address] 82165 MCV (RBC) [Entitic vol] 86 fL Normal 81-100 [facility] Comment on above: Performed By: #### 6 082001, 05721332, 7813612612, 8777200, 47522941, 43841114, 5611696, 5693889, 40418910 ####[facility] (DEFAULT)[address] [place] [address] 29362 Platelet 383 x10 Normal 138-427 [facility] Comment on above: Performed By: #### 6 937059, 51082646, 6885246006, 6174987, 14875239, 53681742, 2623048, 8795373, 25295691 ####[facility] (DEFAULT)[address] [place] [address] 20461 Platelet mean volume (Bld) [Entitic vol] 7.9 fL Normal 6.3-10.2 [facility] Comment on above: Performed By: #### 6 345976, 23206015, 6373610674, 8755573, 43630818, 84866438, 6310977, 2450642, 22935395 ####[facility] (DEFAULT)[address] [place] [address] 67779 RBC 4.91 x10 Normal 3.70-5.30 [facility] Comment on above: Performed By: #### 6 585079, 86345732, 0531652380, 3194184, 12518319, 91435502, 3353133, 9532737, 85645940 ####[facility] (DEFAULT)[address] [place] [address] 96921 WBC 7.4 x10 Normal 3.5-10.5 [facility] Comment on above: Performed By: #### 6 121735, 20473116, 5495801109, 8518006, 91659033, 23102187, 9504124, 6375773, 42608477 ####[facility] (DEFAULT)[address] [place] [address] 22350 Man Diff? Auto Invalid Interpretation Code [facility] Comment on above: Performed By: #### 6 578537, 51106448, 9763600816, 4901111, 81280734, 75652516, 5138108, 6361034, 34688775 ####[facility] (DEFAULT)[address] [place] [address] 00508 Free T4on 10-28-2023 Free T4 [Mass/Vol] 0.73 ng/dL Normal 0.61-1.12 [facility] Comment on above: Performed By: #### 6 956002, 72795106, 3962350881, 4429648, 68604530, 63066793, 8397373, 4656264, 80582284 ####[facility] (DEFAULT)[address] [place] [address] 37411 HgbA1c Standardon 10-28-2023 .Hb 14.4 Invalid Interpretation Code [facility] Comment on above: Performed By: #### 6 663559, 51526117, 1555744072, 5617910, 58114186, 89032045, 5240188, 3928071, 73619082 ####[facility] (DEFAULT)[address] [place] [address] 33014 .Hgb A1c 0.48 g/dL Invalid Interpretation Code [facility] Comment on above: Performed By: #### 6 364759, 80351676, 5865852989, 3358591, 98735246, 64718727, 3428132, 4009373, 19680699 ####[facility] (DEFAULT)[address] [place] [address] 63764 Glucose [Mass/Vol] 102 mg/dL Invalid Interpretation Code [facility] Comment on above: Performed By: #### 6 921848, 50800426, 0673243655, 5038643, 45968102, 02392743, 0242885, 5176485, 89256324 ####[facility] (DEFAULT)[address] [place] [address] 44196 HbA1c (Bld) [Mass fraction] 5.2 % Normal 4.6-6.2 [facility] Comment on above: Performed By: #### 6 859831, 36628698, 0149061213, 3829238, 66193725, 39918204, 7351639, 2889782, 42450399 ####[facility] (DEFAULT)[address] [place] [address] 34931 Miscellaneous Testing LCon 0 10-28-2023 Test Code LC 943293 Invalid Interpretation Code [facility] Comment on above: Performed By: #### 1 [id number] ####[facility] (DEFAULT)[address] [place] [address] 54863 Test Name LC anti-mullerian hormone Invalid Interpretation Code [facility] Comment on above: Performed By: #### 1 [id number] ####[facility] (DEFAULT)[address] [place] [address] 76957 Provider Orderson 10-28-2023 Provider Orders [id number] .00OTGTIFF Normal [facility] TSHon 10-28-2023 TSH Qn 2.34 m[IU]/L Normal 0.45-5.33 [facility] Comment on above: Performed By: #### 6 945590, 94018503, 8894068116, 4682249, 23276128, 22696349, 5693351, 8538330, 72679774 ####[facility] (DEFAULT)[address] [place] [address] hCG Quantitativeon hCG Quantitative <0.6 Normal 0.0-0.6 [facility] Comment on above: Result Comment: Post -Menopausal Reference Range is: 0.1-11.6 mIU/mL Performed By: #### 6 281514, 45914338, 5387580557, 5113142, 07878125, 17030853, 7704450, 5780973, 54566398 ####[facility] (DEFAULT)[address] [place] [address] Outside Recordson 10-18-2023 Outside Records [id number]#1. 00OTGTIFF Normal [facility] Mikael 01-04-2022 L -- ---- Specimen: [id number] Received: 01/05/22125 Status: QUOC Garber Num: [id number] Spec Type: Surgical Subm Dr: Rodney Lema MD Tissues: A Skin-Other than Cyst, tag, debridement or plastic repair (SCALP) Procedures: HE Stain/5, Gross/Micro L4 ---- Patient Age/Sex Location Account Attending Physician ---- BaudilioSherly Yue 21/ [facility] [id number] Rodney Lema MD ---- SPEC NUM: [id number] RECD: 01/05/22 STATUS: QUOC GARBER NUM: [id number] JANE: 01/04/[address] [facility] [address]: Rodney Lema MD ENTERED: 01/05/[address] [facility] [address]: Dea,Lab SPEC TYPE: Surgical DEPT: MAG FUENTES ORDERED: [...] 10% Neutral Buffered Formalin (ESTELA/YJ) ---- Specimen: [id number] Received: 01/05/22 Status: QUOC Terrynavin Num: [id number] Spec Type: Surgical Subm Dr: Rodney Lema MD Tissues: A Skin-Other than Cyst, tag, debridement or plastic repair (SCALP) Procedures: HE Stain/5, Gross/Micro L4 ---- Patient: Sherly Astudillo [id number] (Continued) ---- Specimen: [id number] Received: 01/05/22 (Continued) Signed (signature on file) Debora Cintron MD 01/07/22 0930 ---- Specimen: [id number] Received: 01/05/22 Status: QUOC Garber Num: [id number] Spec Type: Surgical Subm Dr: Rodney Lema MD Tissues: A Skin-Other than Cyst, tag, debridement or plastic repair (SCALP) Procedures: HE Stain/5, Gross/Micro L4 ---- Patient: Sherly Astudillo [id number] (Continued) ---- Specimen: [id number] Received: 01/05/22 (Continued) Microscopic Description Six glass slides with H E stained material and two IHC stained slides have been examined. The microscopic findings support the above pathologic diagnosis. ANALYTE SPECIFIC REAGENT (ASR) DISCLAIMER: The use of one or more reagents in the above tests is regulated as an analyte specific reagent (ASR). The performance characteristics were determined by the [facility]. Immunohistochemistry assays have not been validated on decalcified tissue. Results should be interpreted with caution given the possibility of false negative results on decalcified specimens. They have not been cleared by the [place] Food and Drug Administration. The FDA has determined that such clearance or approval is not necessary. CPT Codes 11035, 03070, 95861 ---- ---- Specimen: [id number] Received: 01/05/22 Status: QUOC Jcarlos Num: [id number] Spec Type: Surgical Subm Dr: Rodney Lema MD Tissues: A Skin-Other than Cyst, tag, debridement or plastic repair (SCALP) Procedures: HE Stain/5, Gross/Micro L4 ---- Patient: Sherly Astudillo [id number] (Continued) ---- Signed (signature on file) Debora Muller (more content not included)... [facility] Cytology Cervical or vaginal smear or scraping studyon 12-26-2019 [facility] Vital Signs Date Time Vital Sign Value Performing Clinician Rick todd 10-08-2024 13:57-0500 Body mass index (BMI) [Ratio] 42.15 kg/m2 Emily TALBERT Work Phone: [facility] 10-08-2024 13:57-0500 Body weight 122.07 kg Emily TALBERT Work Phone: [facility] 10-08-2024 13:57-0500 Diastolic blood pressure 82 mm[Hg] Emily TALBERT Work Phone: [facility] 10-08-2024 13:57-0500 Systolic blood pressure 122 mm[Hg] Emily TALBERT Work Phone: [facility] 09-10-2024 14:35-0500 Body mass index (BMI) [Ratio] 40.94 kg/m2 Ocle Celeste DO Work Phone: [facility] 09-10-2024 14:35-0500 Body weight 118.57 kg Cole Celeste DO Work Phone: [facility] 09-10-2024 14:35-0500 Diastolic blood pressure 76 mm[Hg] Cole Celeste DO Work Phone: [facility] 09-10-2024 14:35-0500 Systolic blood pressure 118 mm[Hg] Cole Celeste DO Work Phone: [facility] 08-08-2024 11:09-0500 Body mass index (BMI) [Ratio] 39.37 kg/m2 Cole Celeste DO Work Phone: [facility] 08-08-2024 11:09-0500 Body weight 114.03 kg Cole Celeste DO Work Phone: [facility] 08-08-2024 11:09-0500 Diastolic blood pressure 72 mm[Hg] Cole Celeste DO Work Phone: [facility] 08-08-2024 11:09-0500 Systolic blood pressure 120 mm[Hg] Cole Celeste DO Work Phone: [facility] 07-10-2024 10:45-0500 Body mass index (BMI) [Ratio] 38.37 kg/m2 Cole Celeste DO Work Phone: [facility] 07-10-2024 10:45-0500 Body weight 111.13 kg Cole Celeste DO Work Phone: [facility] 07-10-2024 10:45-0500 Diastolic blood pressure 74 mm[Hg] Cole Celeste DO Work Phone: [facility] 07-10-2024 10:45-0500 Systolic blood pressure 118 mm[Hg] Cole Celeste DO Work Phone: [facility] 06-07-2024 13:09-0400 Body mass index (BMI) [Ratio] 38.53 kg/m2 Nom Nurse [facility] 06-07-2024 13:09-0400 Body weight 111.58 kg Nom Nurse [facility] 06-07-2024 13:09-0400 Diastolic blood pressure 72 mm[Hg] [facility] Nurse [facility] 06-07-2024 13:09-0400 Systolic blood pressure 116 mm[Hg] Nom Nurse [facility] 05-08-2024 11:32-0400 Body height 170.2 cm Cole Celeste DO Work Phone: [facility] 05-08-2024 11:32-0400 Body mass index (BMI) [Ratio] 39.16 kg/m2 Cole Celeste DO Work Phone: [facility] 05-08-2024 11:32-0400 Body weight 113.4 kg Cole Celeste DO Work Phone: [facility] 05-08-2024 11:32-0400 Diastolic blood pressure 80 mm[Hg] Cole Celeste DO Work Phone: [facility] 05-08-2024 11:32-0400 Systolic blood pressure 124 mm[Hg] Cole Celeste DO Work Phone: [facility] 10-06-2023 08:53-0500 Body height 170.2 cm Cole Celeste DO Work Phone: [facility] 10-06-2023 08:53-0500 Body mass index (BMI) [Ratio] 38.28 kg/m2 Cole Celeste DO Work Phone: [facility] 10-06-2023 08:53-0500 Body weight 110.86 kg Cole Celeste DO Work Phone: [facility] 10-06-2023 08:53-0500 Diastolic blood pressure 72 mm[Hg] Cole Celeste DO Work Phone: [facility] 10-06-2023 08:53-0500 Systolic blood pressure 120 mm[Hg] Cole Celeste DO Work Phone: [facility] Encounters Encounter Date Encounter Type Care Provider Facility Start: 10-22-2024 End: 10-22-2024 ambulatory COLE ALONSO Not Available Start: 10-18-2024 End: 10-18-2024 ambulatory [place] [facility] Start: 10-15-2024 End: 10-15-2024 Chart abstracting Scanning Provider External [facility] Start: 10-08-2024 End: 10-08-2024 Bamboo flowsheet Emily TALBERT Work Phone: [facility] Start: 10-08-2024 End: 10-08-2024 Bamboo flowsheet Emily TALBERT Work Phone: [facility] Start: 10-08-2024 End: 10-08-2024 Office outpatient visit 15 minutes Emily TALBERT Work Phone: [facility] Comment on above: Third trimester preg maicol; 26 weeks gestation of ; Diabetes mellitus screening Start: 10-08-2024 End: 10-08-2024 ambulatory EMILY LUNDY Not Available Start: [facility] Start: 09-24-2024 [facility] Start: 09-10-2024 End: 09-10-2024 Clinisync Result Encounter Cole Celeste DO Work Phone: [facility] External Department Unsolicited Start: 09-10-2024 End: 09-10-2024 Clinisync Result Encounter Cole Celeste DO Work Phone: [facility] External Department Unsolicited Start: 09-10-2024 End: 09-10-2024 Office outpatient visit 15 minutes Cole Celeste DO Work Phone: [facility] Comment on above: , unspecifi ed gestational age; Encounter for supervision of normal first in first trimester; Second trimester ; 22 weeks gestation of Start: 09-10-2024 End: 09-10-2024 ambulatory COLEIsis ORTEZO Not Available Start: 09-10-2024 End: 09-10-2024 ambulatory EMILY LUNDY Not Available Start: 08-10-2024 End: 08-10-2024 Clinisync Result Encounter Emily TALBERT Work Phone: [facility] External Department Unsolicited Start: 08-10-2024 End: 08-10-2024 Clinisync Result Encounter Emily TALBERT Work Phone: [facility] Unsolicited Start: 08-08-2024 End: 08-08-2024 Bamboo flowsheet Cole Celeste DO Work Phone: [facility] Start: 08-08-2024 End: 08-16-2024 Bamboo flowsheet Cole Celeste DO Work Phone: [facility] Start: 08-08-2024 End: 08-16-2024 Clinisync Result Encounter Emily TALBERT Work Phone: [facility] Department Unsolicited Start: 08-08-2024 End: 08-15-2024 External Result Encounter Emily TALBERT Work Phone: [facility] Department Unsolicited Start: 08-08-2024 End: 08-08-2024 Office outpatient visit 15 minutes Cole Celeste DO Work Phone: [facility] Comment on above: Well woman exam with routine gynecological exam; Second trimester ; 17 weeks gestation of ; Vaginal discharge; STD exposure; Screening, , for anatomic survey; Elevated glucose tolerance test Start: 08-08-2024 End: 08-08-2024 Patient encounter procedure Cole Celeste DO Work Phone: [facility] Work Phone: Start: 08-08-2024 End: 08-08-2024 ambulatory COLE CELESTE Not Available Start: 07-31-2024 End: 07-31-2024 Clinisync Result Encounter Cole Celeste DO Work Phone: [facility] External Department Unsolicited Start: 07-31-2024 End: 07-31-2024 Clinisync Result Encounter Cole Celeste DO Work Phone: [facility] External Department Unsolicited Start: 07-10-2024 End: 07-10-2024 Bamboo flowsheet Cole Celeste DO Work Phone: [facility] Start: 07-10-2024 End: 07-10-2024 Bamboo flowsheet Cole Celeste DO Work Phone: [facility] Start: 07-10-2024 End: 07-10-2024 Office outpatient visit 15 minutes Cole Celeste DO Work Phone: [facility] Comment on above: Second trimester pre gnancy; 13 weeks gestation of ; Nausea and vomiting in ; Diabetes mellitus screening Start: 07-10-2024 End: 07-10-2024 ambulatory COLE CELESTE Not Available Start: 07-05-2024 End: 07-05-2024 [facility] Start: 07-04-2024 End: 07-04-2024 Clinisync Result Encounter Cole Celeste DO Work Phone: [facility] External Department Unsolicited Start: 07-04-2024 End: 07-04-2024 Clinisync Result Encounter Cole Celeste DO Work Phone: [facility] External Department Unsolicited Start: 06-07-2024 End: 06-07-2024 ambulatory [facility] Celeste Nurse [facility] Comment on above: GA: 8w6d Start: 06-01-2024 End: 06-01-2024 ambulatory Anthony Gomez Facility:[facility] Start: 05-28-2024 End: 05-28-2024 Emergency department patient visit Evonne Cheung Facility:[facility] Start: 05-28-2024 End: 05-28-2024 ambulatory Spenser Tellez PAC Facility:[facility] Start: 05-08-2024 End: 05-08-2024 Bamboo flowsheet Cole Celeste DO Work Phone: [facility] Start: 05-08-2024 End: 05-08-2024 Bamboo flowsheet Cole Celeste DO Work Phone: [facility] Start: 05-08-2024 End: 05-08-2024 Office outpatient visit 15 minutes Cole Celeste DO Work Phone: [facility] Comment on above: Missed menses Start: 05-08-2024 End: 05-08-2024 ambulatory COLE CELESTE Not Available Start: 04-24-2024 End: 04-24-2024 Patient encounter procedure Kenya Richter DDS Work Phone: [facility] Comment on above: Abnormal tooth erupt ion (Primary Dx); Impacted third molar tooth Start: 04-24-2024 ambulatory KENYA RICHTER Facili ty:[facility] Start: 03-14-2024 End: 03-14-2024 ambulatory COLE R CELESTE Facility:[facility] Start: 02-14-2024 End: 02-14-2024 ambulatory [facility] Facility:[facility] Start: 01-17-2024 End: 01-17-2024 ambulatory [facility]LE R [facility] Facility:[facility] Start: 12-16-2023 End: 12-16-2023 ambulatory Anthony Gomez Facility:[facility] Start: 11-19-2023 End: 11-19-2023 Emergency department patient visit Anthony Gomez Facility:[facility] Start: 11-03-2023 End: 11-03-2023 ambulatory COLE CELESTE Not Available Start: 10-28-2023 End: 10-28-2023 ambulatory Anthony Santo Jason Facility:[facility] Start: 10-06-2023 End: 10-06-2023 Office outpatient new 20 minutes Cole Celeste DO Work Phone: [facility] Comment on above: Irregular periods/me nstrual cycles; PCOS (polycystic ovarian syndrome); Insulin resistance Procedures Date Procedure Procedure Detail Performing Clinician Start: 09-10-2024 [facility] DRUG SCREEN RAPI D (URINE) Cole Celeste DO Work Phone: Start: 08-10-2024 GLUCOSE TOLERANCE 3 HOUR Emily TALBERT Work Phone: Start: 08-08-2024 Urnls dip stick/tabl et rgnt non-auto w/o micrscp Emily TALBERT Work Phone: Start: 08-08-2024 IGP,APTIMA HPV,AGE GDLN Emily TALBERT Work Phone: Start: 08-08-2024 RECURRENT VAGINITIS (HTRX) Emily TALBERT Work Phone: Start: 07-31-2024 GLUCOSE 1 HOUR Cole Fa zio DO Work Phone: Start: 07-10-2024 Urnls dip stick/tabl et rgnt non-auto w/o micrscp Cole Celeste DO Work Phone: Start: 07-04-2024 ALL CBC WITH AUTO DIFF Cole Celeste DO Work Phone: Start: 06-07-2024 Urnls dip stick/tabl et rgnt non-auto w/o micrscp Cole Celeste DO Work Phone: Start: 05-08-2024 Urine test visual color cmprsn meths Cole Celeste DO Work Phone: Start: 04-24-2024 panoramic radiograph ic image Pavan Lee DMD, MD Work Phone: Start: 12-26-2019 Cytp cerv/vag auto t hin layer prep mnl screen Deana Whitfield Vijay DO Work Phone: Plan of Treatment Date Care Activity Detail Author Start: 2048 Shingles (RZV) Vacci ne (1 of 2) Shingles (RZV) Vaccine (1 of 2) [facility] Start: 10-22-2024 End: 10-22-2024 Patient encounter procedure 10/22/2024 2:50 PM EST Routine [facility] [address] [place] [address] Cole Alonso DO [address] [facility] [place] [address] [facility] Start: 10-18-2024 End: 10-18-2024 Patient encounter procedure 10/18/2024 1:00 PM EST Appointment [facility] [place] [address] [facility] [address] [place] [address] [facility] [place] Start: 10-08-2024 End: 10-08-2025 CBC panel - Blood by Automated count CBC Lab Routine Diabetes mellitus screening Expected: 10/08/2024 (Approximate), Expires: 10/08/2025 [facility] Work Phone: Comment on above: Expected: 10/08/2024 (Approximate), Expires: 10/08/2025 Start: 10-08-2024 End: 10-08-2025 Measurement of glucose 1 hour after glucose challenge for glucose tolerance test Glucose tolerance, 1 hour Lab Routine Diabetes mellitus screening Expected: 10/08/2024 (Approximate), Expires: 10/08/2025 [facility] Comment on above: Expected: 10/08/2024 (Approximate), Expires: 10/08/2025 Start: 10-08-2024 End: 10-08-2024 Patient encounter procedure [facility] Comment on above: Arrived Start: 09-10-2024 End: 09-10-2025 Drugs of abuse panel - Urine by Screen method Rapid drug screen, urine Lab Routine , unspecified gestational age Encounter for supervision of normal first in first trimester Expected: 09/10/2024 (Approximate), Expires: 09/10/2025 [facility] Work Phone: Comment on above: Expected: 09/10/2024 (Approximate), Expires: 09/10/2025 Start: 09-10-2024 End: 09-10-2024 Patient encounter procedure 09/10/2024 2:00 PM EST Routine [facility] [address] [place] [address] Cole Alonso, [address] [place], [place] [id number] [facility] Start: 09-10-2024 End: 09-10-2024 Professional / ancillary services management 09/10/2024 1:00 PM EST Ancillary Procedure [facility] [address] [place] [address] [facility] Start: 08-08-2024 End: 02-06-2025 Alpha fetoprotein, maternal Alpha fetoprotein, maternal Lab Routine Second trimester 17 weeks gestation of Expected: 08/08/2024 (Approximate), Expires: 02/06/2025 [facility] Comment on above: Expected: 08/08/2024 (Approximate), Expires: 02/06/2025 Start: 08-08-2024 End: 08-08-2025 Measurement of glucose 3 hours after glucose challenge for glucose tolerance test Glucose tolerance, 3 hours Lab Routine Elevated glucose tolerance test Expected: 08/08/2024 (Approximate), Expires: 08/08/2025 [facility] Comment on above: Expected: 08/08/2024 (Approximate), Expires: 08/08/2025 Start: 08-08-2024 End: 08-08-2025 US for US OB ANATOMY SINGLE W US OB CERVICAL LENGTH Imaging Routine Screening, , for anatomic survey Expected: 08/08/2024 (Approximate), Expires: 08/08/2025 [facility] Comment on above: Expected: 08/08/2024 (Approximate), Expires: 08/08/2025 Start: 08-08-2024 End: 08-08-2024 Patient encounter procedure [facility] Comment on above: Arrived Start: 07-10-2024 End: 07-10-2025 Measurement of glucose 1 hour after glucose challenge for glucose tolerance test Glucose tolerance, 1 hour Lab Routine Diabetes mellitus screening Expected: 07/10/2024 (Approximate), Expires: 07/10/2025 [facility] Work Phone: Comment on above: Expected: 07/10/2024 (Approximate), Expires: 07/10/2025 Start: 07-10-2024 End: 07-10-2024 Patient encounter procedure [facility] Comment on above: Arrived Start: 07-04-2024 End: 07-04-2024 Patient encounter procedure 07/04/2024 3:00 PM EDT Office Visit [facility] [address] [place], [place] [id number] Kenya Richter, DDS [address] [place], [place] [id number] [facility] Start: 06-07-2024 End: 06-07-2025 ABO/Rh ABO/Rh Lab Routine Missed menses , unspecified gestational age Expected: 06/07/2024 (Approximate), Expires: 06/07/2025 [facility] Comment on above: Expected: 06/07/2024 (Approximate), Expires: 06/07/2025 Start: 06-07-2024 End: 06-07-2025 Blood type and Indirect antibody screen panel - Blood Type and screen Lab Routine Missed menses , unspecified gestational age Expected: 06/07/2024 (Approximate), Expires: 06/07/2025 [facility] Work Phone: Comment on above: Expected: [...] 06/07/2024 (Approximate), Expires: 06/07/2025 Start: 06-07-2024 End: 06-07-2024 ambulatory 06/07/2024 1:00 PM EDT Initial [facility] [address] [place] [phone] [facility] Start: 06-07-2024 End: 06-07-2024 Professional / ancillary services management 06/07/2024 12:30 PM EDT Ancillary Procedure [facility] [address] [place] [phone] [facility] Start: 06-05-2024 Influenza vaccination Influenza Vacc ine (#1) [facility] Start: 05-08-2024 End: 05-08-2024 Patient encounter procedure 05/08/2024 11:20 AM EDT Office Visit [facility] [address] [place] [phone] Cole Alonso, DO [address] [place] [address] Arrived [facility] Comment on above: Arrived Start: 05-06-2024 Influenza vaccination Influenza Vacc ine [facility] Start: 11-03-2023 End: 11-03-2023 Patient encounter procedure 11/03/2023 8:30 AM EST Office Visit [facility] [address] [place] [phone] Cole Alonso, DO [address] [place] [address] [facility] Start: 10-17-2023 End: 10-17-2023 Professional / ancillary services management 10/17/2023 8:30 AM EST Ancillary Procedure [facility] [address] [place] [address] [facility] Start: 05-06-2023 COVID-19 Vaccine ( season) COVID-19 Vaccine ( season) [facility] Start: 2019 Screening for malign ant neoplasm of cervix Pap Smear [facility] Start: 2017 DTaP,Tdap and Td Vaccines (1 - Tdap) DTaP,Tdap and Td Vaccines (1 - Tdap) [facility] Start: 2017 Hepatitis A (HAV) Vaccine (optional start 19+ years) Hepatitis A (HAV) Vaccine (optional start 19+ years) [facility] Start: 2017 Hepatitis B vaccination Hepati tis B (HBV) Vaccine (1 of 3 - 19+ 3-dose series) [facility] Start: 2016 Adult BMI Screening Adult BMI Screen ing [facility] Start: 2016 Hepatitis C screening Hepatitis C An tibody [facility] Start: 2016 Tetanus + diphtheria + acellular pertussis vaccine (product) Tdap Booster [facility] Start: 2013 Vaccination for volodymyr n papillomavirus HPV Vaccine (1 - 3-dose series) [facility] Start: 2010 Depression Screening Depression Scre ening [facility] Start: 2010 Tobacco Screening Tobacco Screening [facility] Antimullerian hormon e (AMH) Antimullerian hormone (AMH) Lab Routine Irregular periods/menstrual cycles Ordered: 10/06/2023 [facility] Comment on above: Ordered: 10/06/2023 Bacteria identified in Urine by Culture Urine culture Microbiology Routine Missed menses Ordered: 06/07/2024 [facility] Comment on above: Ordered: 06/07/2024 CBC W Auto Different ial panel - Blood CBC and differential Lab Routine PCOS (polycystic ovarian syndrome) Ordered: 10/06/2023 [facility] Comment on above: Ordered: 10/06/2023 CBC W Auto Different ial panel - Blood CBC and differential Lab Routine Missed menses , unspecified gestational age Ordered: 06/07/2024 [facility] Comment on above: Ordered: 06/07/2024 CHLAMYDIA TRACHOMATI S (GENITO/STI) CHLAMYDIA TRACHOMATIS (GENITO/STI) Lab Routine STD exposure Ordered: 08/08/2024 [facility] Comment on above: Ordered: 08/08/2024 Cytology Cervical or vaginal smear or scraping study Pap Smear Pathology and Cytology Routine Well woman exam with routine gynecological exam Ordered: 08/08/2024 [facility] Comment on above: Ordered: 08/08/2024 DHEA DHEA Lab Routine PCOS (polycystic ovarian syndrome) Ordered: 10/06/2023 [facility] Comment on above: Ordered: 10/06/2023 DHEA-sulfate DHEA-sulfate Lab Routine PCOS (polycystic ovarian syndrome) Ordered: 10/06/2023 [facility] Comment on above: Ordered: 10/06/2023 Follicle stimulating hormone Follicle stimulating hormone Lab Routine PCOS (polycystic ovarian syndrome) Ordered: 10/06/2023 [facility] Comment on above: Ordered: 10/06/2023 hCG, quantitative, hCG, quantitative, Lab Routine PCOS (polycystic ovarian syndrome) Ordered: 10/06/2023 [facility] Work Phone: Comment on above: Ordered: 10/06/2023 Hemoglobin A1c measurement Hemoglobin A1c Lab Routine Irregular periods/menstrual cycles Ordered: 10/06/2023 [facility] Comment on above: Ordered: 10/06/2023 Hemoglobin A1c/Hemoglobin.total in Blood Hemoglobin A1c Lab Routine Missed menses , unspecified gestational age Ordered: 06/07/2024 [facility] Comment on above: Ordered: 06/07/2024 Hepatitis B virus surface Ag [Presence] in Serum or Plasma by Immunoassay Hepatitis B surface antigen Lab Routine Missed menses , unspecified gestational age Ordered: 06/07/2024 [facility] Comment on above: Ordered: 06/07/2024 Hepatitis C virus Ab [Presence] in Serum or Plasma by Immunoassay Hepatitis C antibody Lab Routine Missed menses , unspecified gestational age Ordered: 06/07/2024 [facility] Comment on above: Ordered: 06/07/2024 HIV-1/HIV-2 antigen/antibody combination immunoassay HIV-1 and HIV-2 antibodies Lab Routine Missed menses , unspecified gestational age Ordered: 06/07/2024 [facility] Comment on above: Ordered: 06/07/2024 Luteinizing hormone Luteinizing hormone Lab Routine PCOS (polycystic ovarian syndrome) Ordered: 10/06/2023 [facility] Comment on above: Ordered: 10/06/2023 Neisseria gonorrhoea e DNA [Presence] in Unspecified specimen by ISHA with probe detection Neisseria gonorrhea DNA probe, direct Lab Routine STD exposure Ordered: 08/08/2024 [facility] Comment on above: Ordered: 08/08/2024 Reagin Ab [Presence] in Serum by RPR RPR Lab Routine Missed menses , unspecified gestational age Ordered: 06/07/2024 [facility] Comment on above: Ordered: 06/07/2024 Rubella antibody, IgG Rubella an tibody, IgG Lab Routine Missed menses , unspecified gestational age Ordered: 06/07/2024 [facility] Comment on above: Ordered: 06/07/2024 SURESWAB(R) ADVANCED VAGINITIS PLUS, TMA SURESWAB(R) ADVANCED VAGINITIS PLUS, TMA Pathology and Cytology Routine Vaginal discharge Ordered: 08/08/2024 [facility] Work Phone: Comment on above: Ordered: 08/08/2024 Thyrotropin [Units/volume] in Serum or Plasma TSH Lab Routine PCOS (polycystic ovarian syndrome) Ordered: 10/06/2023 [facility] Comment on above: Ordered: 10/06/2023 Thyroxine (T4) free [Mass/volume] in Serum or Plasma T4, free Lab Routine PCOS (polycystic ovarian syndrome) Ordered: 10/06/2023 [facility] Comment on above: Ordered: 10/06/2023 US for US PELVIS-TRANS VAG IF INDICATED Imaging Routine PCOS (polycystic ovarian syndrome) Ordered: 10/06/2023 [facility] Comment on above: Ordered: 10/06/2023 Payers Date Payer Category Payer Medicaid [id number] 2022 Medicaid [id number] 1998 Unknown [id number] 2.16. [id number] 1998 Unknown [id number] 2.16.8 40.1.369425.3.579.2. 1998 Unknown [id number] 2.16.8 40.1.987570.3.579.2. 1998 Unknown [id number] 2.16.8 40.1.431927.3.579.2. 1998 Unknown [id number] 2.16.8 40.1.875517.3.579.2. 1998 Unknown [id number] 2.16.8 40.1.711441.3.579.2. 1998 Unknown [id number] 2.16.8 40.1.937892.3.579.2. 1998 Unknown [id number] 2.16.8 40.1.879833.3.579.2. 1998 Unknown [id number] 2.16.8 40.1.259828.3.579.2. 1998 Unknown [id number] 2.16.8 40.1.490057.3.579.2. 1998 Unknown [id number] 2.16.8 40.1.227469.3.579.2. 1998 Unknown [id number] 2.16.8 40.1.042757.3.579.2. 1998 Unknown [id number] 2.16.8 40.1.334733.3.579.2. 1998 Unknown [id number] 2.16. 840.1.456738.3.579.2.1285 1998 Unknown [id number] 2.16.84 0.1.880767.3.579.2.1258 1998 Unknown [id number] 2.16.84 0.1.552046.3.579.2.1258 1998 Unknown [id number] 2.16.84 0.1.355396.3.579.2.1258 1998 Unknown [id number] 2.16.84 0.1.035498.3.579.2.1259 1998 Unknown [id number] 2.16.84 0.1.214349.3.579.2.1259 1998 Unknown [id number] 2.16.84 0.1.011402.3.579.2.1259 1998 Unknown [id number] 2.16.84 0.1.061360.3.579.2.1259 1998 Unknown [id number] 2.16.84 0.1.002841.3.579.2.1259 1998 Unknown [id number] 2.16.84 0.1.897588.3.579.2.1259 Social History Date Type Detail Facility Start: 09-15-2023 End: 10-15-2024 Tobacco smoking status TXIS Ex-smoker [facility] History of tobacco use Current smoker [facility] History of tobacco use Cigarette Smoker [facility] Start: 10-06-2023 End: 10-08-2024 Alcohol intake Lifetime non-drinker (finding) [facility] Start: 10-16-2020 End: 09-15-2023 History of Social function [facility] Start: 10-16-2020 End: 09-15-2023 Tobacco use panel [facility] Start: 09-15-2023 Alcohol Comment caffeine: 1-2 cups per day [facility] Start: 2000 Sex Assigned At Not on file N [facility] Tobacco smoking stat [facility] Tobacco smoking consumption unknown [facility] Start: 05-08-2024 End: 10-15-2024 Tobacco use and exposure Smokeless tobacco non-user [facility] Start: 04-20-2024 [facility] Start: 10-15-2024 Alcoholic beverage intake Ex-drinker (finding) [facility] Childcare Unknown [facility] Start: 12-03-2019 Sex Female (finding) [facility] Clinical Notes 10-06-2023 to 10-08-2024 NITISH Rojas - 10/08/2024 1:30 PM Lin Latham LPN - 09/10/2024 2:00 PM NITISH Gee - 08/08/2024 10:50 AM Obie Xavier LPN - 07/10/2024 10:10 AM EST Note Date & Type Note Facility 10-08-2024 History of Presen t illness Narrative Reason for Appointment: Patient ID: Sherly Astudillo is a 24 y.o. female who presents for Routine Visit Patient presents today for Return OB appointment. MEDICATIONS Current Outpatient Medications Medication Instructions clotrimazole (Mycelex) 10 MG jacob 1 lozenge(s), Oral, 5x/Day, x 10 day(s), # 50 lozenge(s), 0 Refill(s), 10/16/24 8:59:00 AM PERIPATOLOGIST, Pharmacy: [facility] [id number], 1 lozenge(s) Oral 5x/Day,x10 day(s), 170.18, cm, 10/06/24 9:22:00 EST, Height, 118.39, kg, 10/06/24 9:24:00 EST, Weight Dosing metFORMIN XR (GLUCOPHAGE-XR) 500 mg, Oral, Daily with evening meal, Do not crush, chew, or split. ALLERGIES No Known Allergies PROBLEMS Active Ambulatory [...] Jackson as a child Endometriosis Mother Magnolia Renetta Diabetes Mother Magnolia Renetta Depression Father Hypertension Father Diabetes Maternal Grandmother [...] reviewed. Vitals: Estimated body mass index is 42.15 kg/m as calculated from the following: Height as of 05/08/24: 5' 7 . Weight as of this encounter: 269 lb 1.9 oz. BP: 122/82 Patient's last menstrual period was 04/06/2024. ASSESSMENT & PLAN ICD-10-CM 1. Third trimester Z34.93 2. 26 weeks gestation of Z3A.26 3. Diabetes mellitus screening Z13.1 CBC Glucose tolerance, 1 hour CBC Glucose tolerance, 1 hour Return OB: Patient presents today for a routine obstetrics appointment. Patient is currently 26w3d . Patient states she is doing well but has complaints of being tired due to current . Patient has verbalizes frequent movement. labor precautions was discussed/given and patient was instructed to perform kick counts three times a day. Orders Placed This Encounter Procedures CBC Glucose tolerance, 1 hour Follow Up: Patient is to return to office in 2 week for routine OB appointment. Documented by NITISH Rojas on behalf of: NITISH Rojas documented in this encounter [facility] 10-06-2024 Note Patient Education Ma terials Follows: Otitis Media, Adult Otitis media occurs when there is inflammation and fluid in the middle ear with signs and symptoms of an acute infection. The middle ear is a part of the ear that contains bones for hearing as well as air that helps send sounds to the brain. When infected fluid builds up in this space, it causes pressure and can lead to an ear infection. The eustachian tube connects the middle ear to the back of the nose (nasopharynx) and normally allows air into the middle ear. If the eustachian tube becomes blocked, fluid can build up and become infected. What are the causes? This condition is caused by a blockage in the eustachian tube. This can be caused by mucus or by swelling of the tube. Problems that can cause a blockage include: ? A cold or other upper respiratory infection. ? Allergies. ? An irritant, such as tobacco smoke. ? Enlarged adenoids. The adenoids are areas of soft tissue located high in the back of the throat, behind the nose and the roof of the mouth. They are part of the body's defense system (immune system). ? A mass in the nasopharynx. ? Damage to the ear caused by pressure changes (barotrauma). What increases the risk? You are more likely to develop this condition if you: ? Smoke or are exposed to tobacco smoke. ? Have an opening in the roof of your mouth (cleft palate). ? Have gastroesophageal reflux. ? Have an immune system disorder. What are the signs or symptoms? Symptoms of this condition include: ? Ear pain. ? Fever. ? Decreased hearing. ? Tiredness (lethargy). ? Fluid leaking from the ear, if the eardrum is ruptured or has burst. ? Ringing in the ear. How is this diagnosed? This condition is diagnosed with a physical exam. During the exam, your health care provider will use an instrument called an otoscope to look in your ear and check for redness, swelling, and fluid. He or she will also ask about your symptoms. Your health care provider may also order tests, such as: ? A pneumatic otoscopy. This is a test to check the movement of the eardrum. It is done by squeezing a small amount of air into the ear. ? A tympanogram. This is a test that shows how well the eardrum moves in response to air pressure in the ear canal. It provides a graph for your health care provider to review. How is this treated? This condition can go away on its own within 3?5 days. But if the condition is caused by a bacterial infection and does not go away on its own, or if it keeps coming back, your health care provider may: ? Prescribe antibiotic medicine to treat the infection. ? Prescribe or recommend medicines to control pain. Follow these instructions at home: ? Take rhcy-ctn-gebbrly and prescription medicines only as told by your health care provider. ? If you were prescribed an antibiotic medicine, take it as told by your health care provider. Do not stop taking the antibiotic even if you start to feel better. ? Keep all follow-up visits. This is important. Contact a health care provider if: ? You have bleeding from your nose. ? There is a lump on your neck. ? You are not feeling better in 5 days. ? You feel worse instead of better. Get help right away if: ? You have severe pain that is not controlled with medicine. ? You have swelling, redness, or pain around your ear. ? You have stiffness in your neck. ? A part of your face is not moving (paralyzed). ? The bone behind your ear (mastoid bone) is tender when you touch it. ? You develop a severe headache. Summary ? Otitis media is redness, soreness, and swelling of the middle ear, usually resulting in pain and decreased hearing. ? This condition can go away on its own within 3?5 days. ? If the problem does not go away in 3?5 days, your health care provider may give you medicines to treat the infection. ? If you were prescribed an antibiotic medicine, take it as told by your health care provider. ? Follow all instructions that were given to you by your health care provider. This information is not intended to replace advice given to you by your health care provider. Make sure you discuss any questions you have with your health care provider. Document Revised: 11/30/2021 Document Reviewed: 11/30/2021 [employer] Patient Education ? 2023 [employer] Infectious Disease Oral Thrush, Adult Oral thrush, also called oral candidiasis, is a fungal infection that develops in the mouth and throat and on the tongue. It causes white patches to form in the mouth and on the tongue. Many cases of thrush are mild, but this infection can also be serious. Thrush can be a repeated (recurrent) problem for certain people who have a weak body defense system (immune system). The weakness can be caused by chronic illnesses, or by taking medicines that limit the body's ability to fight infection. If a person has difficulty fighting infection (more content not included)... [facility] 09-24-2024 Note Patient Education Ma terials Follows:Disease Pharyngitis Pharyngitis is inflammation of the throat (pharynx). It is a very common cause of sore throat. Pharyngitis can be caused by a bacteria, but it is usually caused by a virus. Most cases of pharyngitis get better on their own without treatment. What are the causes? This condition may be caused by: ? Infection by viruses (viral). Viral pharyngitis spreads easily from person to person (is contagious) through coughing, sneezing, and sharing of personal items or utensils such as cups, forks, spoons, and toothbrushes. ? Infection by bacteria (bacterial). Bacterial pharyngitis may be spread by touching the nose or face after coming in contact with the bacteria, or through close contact, such as kissing. ? Allergies. Allergies can cause buildup of mucus in the throat (post-nasal drip), leading to inflammation and irritation. Allergies can also cause blocked nasal passages, forcing breathing through the mouth, which dries and irritates the throat. What increases the risk? You are more likely to develop this condition if: ? You are 5?24 years old. ? You are exposed to crowded environments such as daycare, school, or dormitory living. ? You live in a cold climate. ? You have a weakened disease-fighting (immune) system. What are the signs or symptoms? Symptoms of this condition vary by the cause. Common symptoms of this condition include: ? Sore throat. ? Fatigue. ? Low-grade fever. ? Stuffy nose (nasal congestion) and cough. ? Headache. Other symptoms may include: ? Glands in the neck (lymph nodes) that are swollen. ? Skin rashes. ? Plaque-like film on the throat or tonsils. This is often a symptom of bacterial pharyngitis. ? Vomiting. ? Red, itchy eyes (conjunctivitis). ? Loss of appetite. ? Joint pain and muscle aches. ? Enlarged tonsils. How is this diagnosed? This condition may be diagnosed based on your medical history and a physical exam. Your health care provider will ask you questions about your illness and your symptoms. A swab of your throat may be done to check for bacteria (rapid strep test). Other lab tests may also be done, depending on the suspected cause, but these are rare. How is this treated? Many times, treatment is not needed for this condition. Pharyngitis usually gets better in 3?4 days without treatment. Bacterial pharyngitis may be treated with antibiotic medicines. Follow these instructions at home: Medicines ? Take fqrf-gsr-wolsoaq and prescription medicines only as told by your health care provider. ? If you were prescribed an antibiotic medicine, take it as told by your health care provider. Do not stop taking the antibiotic even if you start to feel better. ? Use throat sprays to soothe your throat as told by your health care provider. ? Children can get pharyngitis. Do not give your child aspirin because of the association with Sebastian's syndrome. Managing pain To help with pain, try: ? Sipping warm liquids, such as broth, herbal tea, or warm water. ? Eating or drinking cold or frozen liquids, such as frozen ice pops. ? Gargling with a mixture of salt and water 3?4 times a day or as needed. To make salt water, completely dissolve ??1 tsp (3?6 g) of salt in 1 cup (237 mL) of warm water. ? Sucking on hard candy or throat lozenges. ? Putting a cool-mist humidifier in your bedroom at night to moisten the air. ? Sitting in the bathroom with the door closed for 5?10 minutes while you run hot water in the shower. General instructions ? Do not use any products that contain nicotine or tobacco. These products include cigarettes, chewing tobacco, and vaping devices, such as e-cigarettes. If you need help quitting, ask your health care provider. ? Rest as told by your health care provider. ? Drink enough fluid to keep your urine pale yellow. How is this prevented? To help prevent becoming infected or spreading infection: ? Wash your hands often with soap and water for at least 20 seconds. If soap and water are not available, use hand interactive media project manager. ? Do not touch your eyes, nose, or mouth with unwashed hands, and wash hands after touching these areas. ? Do not share cups or eating utensils. ? Avoid close contact with people who are sick. Contact a health care provider if: ? You have large, tender lumps in your neck. ? You have a rash. ? You cough up green, yellow-brown, or bloody mucus. Get help right away if: ? Your neck becomes stiff. ? You drool or are unable to swallow liquids. ? You cannot drink or take medicines without vomiting. ? You have severe pain that does not go away, even after you take medicine. ? You have trouble breathing, and it is not caused by a stuffy nose. ? You have new pain and swelling in your joints such as the knees, ankles, wrists, or elbows. These symptoms may represent a (more content not included)... [facility] 09-10-2024 History of Presen t illness Narrative Reason for Appointment: Patient ID: Sherly Astudillo is a 24 y.o. female who presents for Routine Visit Patient presents today for Return OB appointment. MEDICATIONS Current Outpatient Medications Medication Instructions metFORMIN XR (GLUCOPHAGE-XR) 500 mg, Oral, Daily with evening meal, Do not crush, chew, or split. ALLERGIES No Known Allergies PROBLEMS Active Ambulatory [...] Jackson as a child Endometriosis Mother Magnolia Renetta Diabetes Mother Magnolia Renetta Depression Father Hypertension Father Diabetes Maternal Grandmother Geovanna Monreal SURGICAL HISTORY Past Surgical History: Procedure Laterality Date CHOLECYSTECTOMY 09/16/2020 REVIEW OF SYSTEMS Review of Systems: Review of Systems All other systems reviewed and are negative. OBJECTIVE Objective: Physical Exam Constitutional: Appearance: Normal [...] nursing note reviewed. Exam conducted with a gem technician present. Vitals: Estimated body mass index is 40.94 kg/m as calculated from the following: Height as of 05/08/24: 5' 7 . Weight as of this encounter: 261 lb 6.4 oz. BP: 118/76 Patient's last menstrual period was 04/06/2024. ASSESSMENT & PLAN ICD-10-CM 1. , unspecified gestational age Z34.90 Rapid drug screen, urine Rapid drug screen, urine 2. Encounter for supervision of normal first in first trimester Z34.01 Rapid drug screen, urine Rapid drug screen, urine 3. Second trimester Z34.92 4. 22 weeks gestation of Z3A.22 Patient presents today for a routine obstetrics appointment. Patient is currently 22w3d with a Estimated Date of Delivery: 01/11/25. Patient to return to clinic in 4 weeks for routine OB care. Documented by Rose Latham LPN on behalf of: Cole Alonso DO documented in this encounter [facility] 08-08-2024 History of Presen t illness Narrative Reason for Appointment: Patient ID: Sherly Astudillo is a 24 y.o. female who [...] Documented by NITISH Rojas on behalf of: Cole Alonso DO documented in this encounter [facility] 07-10-2024 History of Presen t illness Narrative Reason for Appointment: Patient ID: Sherly Astudillo is a 24 y.o. female who [...] nursing note reviewed. Exam conducted with a gem technician present. Vitals: Estimated body mass index is 38.37 kg/m as calculated from the following: Height as of 9/3/24: 5' 7 . Weight as of this [...] or undercooked meat, and stay away from [facility]. Patient has been consulted regarding any further do's and don'ts of . Patient voiced understanding and all questions and concerns were answered. Pt to start baby aspirin daily. Orders Placed This Encounter Procedures POCT urinalysis dipstick manually resulted Follow Up: Patient is to return in 4 weeks for routine OB appointment. Documented by Bailey Xavier LPN on behalf of: Cole Alonso DO documented in this encounter [facility] 07-05-2024 Note Patient Education Ma terials Follows:and [...] and use condoms. General instructions ? Take mekc-oun-czeamgd and prescription medicines only as told by [...] provider. Document Revised: 02/19/2021 Document Reviewed: 02/19/2021 [employer] Patient Education ? 2023 [employer]. [facility] 06-07-2024 History of Presen t illness Narrative Reason for Appointment: Patient ID: Sherly Astudillo is a 24 y.o. female who [...] Jackson as a child Endometriosis Mother Magnolia Renetta Diabetes Mother Magnolia Renetta Depression Father Hypertension Father Diabetes Maternal Grandmother Geovanna Rah Social History Tobacco Use Smoking status: Former [...] both done at the same time at [facility] at 10 weeks . Pt desires zofran due to nausea in this . Follow Up: Patient is to have labs drawn at directed and return to office for initial OB appointment with provider. Patient may call office as needed with any concerns or questions. Nurse Visit Completed by: Bernadette Reeder MA documented in this encounter [facility] 05-28-2024 Note Education Materials Orthopedics Muscle Strain [...] not too tight. General instructions ? Take ujbo-sys-mjjibye and prescription medicines only as told by [...] ? This condition is first treated with AMBROES therapy. This includes protecting, resting, icing, adding [...] provider. Document Revised: 11/09/2021 Document Reviewed: 11/09/2021 [employer] Patient Education ? 2023 [employer]. Sciatica Sciatica is pain, weakness, tingling, or [...] (pelvis). ? . (more content not included)... [facility] 05-28-2024 Note Patient Education Materials Foll ows: [facility] 05-08-2024 History of Presen t illness Narrative Reason for Appointment: Patient ID: Sherly Astudillo is a 24 y.o. female who presents for Abdominal Pain Patient presents today for Acute Visit. MEDICATIONS Current Outpatient Medications Medication Instructions metFORMIN XR (GLUCOPHAGE-XR) 500 mg, Oral, Daily with evening meal, Do not crush, chew, or split. ALLERGIES No Known Allergies PROBLEMS Active Ambulatory [...] Jackson as a child Endometriosis Mother Magnolia Renetta Diabetes Mother Magnolia Renteta Depression Father Hypertension Father Diabetes Maternal Grandmother Geovanna Monreal SURGICAL HISTORY Past Surgical History: Procedure Laterality Date CHOLECYSTECTOMY 09/16/2020 REVIEW OF SYSTEMS Review of Systems: Review of Systems OBJECTIVE Objective: OBGyn Exam Vitals: Estimated body mass index is 39.16 kg/m as calculated from the following: Height as of this encounter: 5' 7 . Weight as of this encounter: 250 lb. BP: 124/80 Patient's last menstrual period was 04/07/2024. ASSESSMENT & PLAN ICD-10-CM 1. Missed menses N92.6 POCT , urine manually resulted Pt did present to discuss side effects of metformin. Recently came off metformin and found out she was . All questions answered. Pt to return for new ob appt. Documented by Bailey Xavier LPN on behalf of: Cole Alonso DO documented in this encounter [facility] 04-24-2024 History of Presen t illness Narrative Images from the original note were not included. documented in this encounter [facility] 11-19-2023 Note Education Materials Caregiving [...] and water are not available, use hand interactive media project manager. ? Change your dressing as told by [...] these instructions at home: Medicines ? Take bgfp-yty-auytutl and prescription medicines only as told by [...] C. This informatio (more content not included)... [facility] 10-06-2023 History of Presen t illness Narrative Reason for Appointment: Patient ID: Sherly Astudillo is a 23 y.o. female who [...] nursing note reviewed. Exam conducted with a gem technician present. Vitals: Estimated body mass index is [...] PCOS/insulin resistance and medication was sent to [facility] in [place]. Documented by Rose Latham LPN on behalf of: Cole Alonso DO documented in this encounter [facility] Evaluation note Diagnosis Irregular periods/menstrual cycles PCOS [...] episode of care [facility] Diagnosis Second trimester state, incidental [...] glucose tolerance test [facility] Diagnosis Missed menses [facility]* Diagnosis , unspecified gestational age Encounter for supervision of normal first in first trimester Second trimester state, incidental 22 weeks gestation of [facility]* Diagnosis Third trimester state, incidental 26 weeks gestation of Diabetes mellitus screening Screening for diabetes mellitus documented [facility] on filedocumented [facility] Purpose Family History No Family History [...] third molar tooth Kenya Richter, DDS [address] [place] [address] Referral ID Status Reason Start Date Expiration Date V isits Requested Visits Authorized [id number] Pending Review 04/24/2024 04/24/2025 1 1 Scheduling [...] your procedure, you will be contacted with [id number] costs or next steps. All self-pay payments [...] the procedure: You also MUST have a local company truck driver/escort >18yrs old present to take you [...] section and content) DATE CREATED AUTHOR 01/08/2022 [facility] DATE CREATED AUTHOR AUTHOR'S ORGANIZ ATION 09/23/2024 [facility] DATE CREATED AUTHOR AUTHOR'S ORGANIZ ATION 10/13/2024 [facility] DATE CREATED AUTHOR AUTHOR'S ORGANIZ ATION 10/20/2024 [facility] DATE CREATED AUTHOR AUTHOR'S ORGANIZ ATION 10/23/2024 [facility] EPIC Reason for Visit (unrecogniz ed section and content) Reason Comments Discuss cycles Reason Comments Amenorrhea Reason Comments Routine Visit Reason Comments Well Women Visit Routine Visit STI Screening Reason Comments Abdominal Pain Care Teams (unrecognized sec tion and content) Management Associate Relationship Specialty Start Date End Date Anthony Gomez MD [address] [place] [address] PCP - General Pediatrics 10/06/23 Management Associate Relationship Specialty Start Date End Date Anthony Gomez MD [address] [place], [place] [id number] PCP - General Pediatrics 10/06/23 Management Associate Relationship Specialty Start Date End Date Anthony Gomez MD [address] [place], [place] [id number] PCP - General Pediatrics 10/06/23 Management Associate Relationship Specialty Start Date End Date Anthony Gomez MD [address] [place] [address] PCP - General Pediatrics 10/06/23 Management Associate Relationship Specialty Start Date End Date Anthony Gomez MD [address] [place] [address] PCP - General Pediatrics 10/06/23 Management Associate Relationship Specialty Start Date End Date Anthony Gomez MD [address] [place] [address] PCP - General Pediatrics 10/06/23 Management Associate Relationship Specialty Start Date End Date Anthony Gomez MD [address] [place] [address] PCP - General Pediatrics 10/06/23 Management Associate Relationship Specialty Start Date End Date Anthony Gomez MD [address] [place] [id number] PCP - General Pediatrics 10/06/23 Management Associate Relationship Specialty Start Date End Date Anthony Gomez MD [address] [place] [id number] PCP - General Pediatrics 10/06/23 Management Associate Relationship Specialty Start Date End Date Anthony Gomez MD [address] [place] [id number] PCP - General Pediatrics 10/06/23 Management Associate Relationship Specialty Start Date End Date Anthony Gomez MD [address] [place] [id number] PCP - General Pediatrics 10/06/23 Management Associate Relationship Specialty Start Date End Date Anthony Gomez MD [address] [place] [id number] PCP - General Pediatrics 10/06/23 FOR RECORDS [...] BE BASED ON THE PRIMARY CLINICAL RECORDS. [facility] [employer] [facility]. provides no warranty or guarantee of the accuracy or completeness of information in this document.
[2024-10-24 14:05] LABS: Basophils Percent Auto 0.3 % (0.2-2.0); Eosinophils Absolute Auto 0.2 10^3/uL (0.0-0.7); Eosinophils Percent Auto 2.1 % (0.9-7.0); Hematocrit 32.1 % (36.0-48.0); Hemoglobin 10.5 g/dL (12.0-16.0); Immature Granulocytes Abs Auto 0.34 10^3/uL (0.00-0.03); Immature Granulocytes Pct Auto 3.4 % (0.0-0.5); Lymphocytes Absolute Auto 2.4 10^3/uL (1.2-3.8); Mean Corpuscular HGB Conc 32.7 g/dL (29.9-35.2); Mean Corpuscular Hemoglobin 27.9 pg (26.7-34.0); Mean Corpuscular Volume 85.4 fL (81.0-99.0); Monocytes Absolute Auto 0.4 10^3/uL (0.3-0.8); Monocytes Percent Auto 4.2 % (1.7-12.0); Neutrophils Absolute Auto 6.7 10^3/uL (1.4-6.5); Platelet Count 332 10^3/uL (150-450); Red Blood Count 3.76 10^6/uL (4.20-5.40); Red Cell Distribution Width 14.3 % (11.0-15.0); White Blood Count 10.1 10^3/uL (4.0-11.0)
[2024-10-24 14:14] LABS: Glucose 1 Hour 125 mg/dL (<130)
== END 2024-10-24 12:36 | disposition home or self-care (01) ==
LOC: LAB 12:37
PROVIDERS: PCP Family Medicine; Visit Provider Physician Assistant
DX: Z13.1 Encounter for screening for diabetes mellitus (principal)
CPT/HCPCS: 36415; 82950; 85025

== ENCOUNTER 2024-10-24 12:39 | Outpatient (OUT) | payer MEDICAID, SELFPAY ==
--- OUTSIDE RECORDS SUMMARY | 2024-10-24 12:56 | XMS_ITS | CCD ---
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 [id number], 1 lozenge(s) Oral 5x/Day,x10 day(s), 170.18, cm, [...] throat justine isolated No pathogens isolated Normal [facility] Comment on above: Performed By: #### 6 [id number] ####[facility] (DEFAULT)[address] [place] [address] Coding Summaryon 10-08-2024 Coding Summary HTMLBase 64 GjaobjwcWKb6fWk+PGhlYW Q+MP7LLBQtS88mkAOqsS3j Q1HHNOuPHyhsOJWJRSjTBw KdwxPeVM7ntLQwMSXl IC8+YR3bDFJvVvqobVXzx3 N5yQU8D56tci0oUNvpzXS3 UBTrIzGvymwya9xxkBo7TD cuNmluOyBt REYvyO97KYN4iI88At14bE KenPMaq1nquYe5UhXmEZNj JTA0tFfbERhjt4SoSIIyS7 6ivOGhk8G4 XQEyoRmewALwUuAdlNW7fV 2yVKwhqolyh5nlewraNjd8 np55aSFkn9H0kUD0A9Mgpb C4ZUKiuZRz IvmswGWWxX7yxbhxo2tmjq yxDjZzPHFyFEn8BSd1DBKs zDmpEkGrTJ70YGG8KUEjap QjQ0RcDWYy pPqdVdP3x6W5Hd4LY4BEAr flH7PZJDUHPOreiFB+PC90 ru12C8XlEfdeZvu6ZOSzWP H2dTM8qE5a BZBgOBnsi1W0kRO5E3Tbqp Kzzo1il0ezCHZmAZgeW76k yYNbs0C1WIBerSK0ASZirJ hpHsXmuQ99 Oyc+VGFmoZcjk7RyUuhzg4 bpd1nsjPh1UjbzEYPchsBx xAddGZX0w0CtUw6pOHFlxM C9aYT3eC9o CkOnKsP6CHnuO497YgKayS UbNzagU44bZ1WtzQF+PHRy Caq7BKFjrHkzUT0pW2TlHT RpbmctbGVm sMskBU9fOQZvleilQQVetT 0pEPDeY3d4LnSgBdW2PBxb I4LxRHRkgcooNq99fG3tIz InKiF4VDbr V1DfqqL6HXBzfOIwOXkvCP R3I16am3M2ARPqCWLoMAQ6 xCE4sX4woNpumzxswKJnpV sgdmVydGlj IQweMIuaT632MURhlKqxWi NvZGluZyBEYXRlOiAgMDIv MDMvMjAyNTwvdGQ+PHRkIH T4gXpgLKGk rNIlZIfiHy1ouSjrhWzhKO 3sYKBiwmxwKGHmtM7fJSXf lUHphCzeFY9pQSDrujvub9 05KtJgYNG4 NQPfpNCxY1GdcW8eKfVaSM KiQSBcW4JadUMnHXvpW348 ZHocBuC1BABtgbDnJ2PcUC FsaWduOiB0 t1U1Sl5Am3MemwtwI0OlvA BlEtYsTaajVTc3H6RxJhht dHI+FL19QFZvLU31WUp7XJ K7pBfbJMom JMLtG6RvuD2qXhUzPAUpKA RkOyc+PHRhYmxlIHdpZHRo EHzcEKBmWtCcgImtKX9hFu 9yZGVyLWNv rNgpoOMsCtCcm8hwOSQmGX ffAV4ukUdkI7HazNH0GLVk i4g0Xe61M25bJ6YblBK+PG PwjVT8tIE3 nQ2fPbHmHfE0CHgeY002Ch UiiAPtQtayf6dhb8gfqWn1 UoT6WHCkzqVueAwnGNQ3t8 DcCp50I31b IHdpZHRoPSIxNSUiIHZhbG pwdu1gkV4kGu6+PGNvbCB3 bNC6iH7mJnUqRvW3YIezY7 49InRvcCIv Lelyz5jff7jpoRx7KwTjLH WfwcEtqCygGVN0o2SlSw12 Q0GroFkmm9TlEdm2kw33zX Kka8T3nJS7 J3ZwALWusulvaXUfdGsgTD 4gSXYbofpiIDSrwQ2tNPHl S4u9DhXhGjY2ZNddD2Irdp J8MUKdfOHz POKjhEHBvC7vdrxmg8zedc lgJwZvVIIwAOu4QIq6WMAk uFqhOiBnMGX5IvS0LJG9fM GwuA9hkSxv ibjsdI9wNvx+IJR4hOWvpC HVFU5oBouppMR+PHRkIHN0 eBgqAAlrOFZaaY6hIWIqI2 c2BjAuDtJ2 CZueH2GnimH3CFOtqAQeGA DejJXXwI4cpmgoo6wwkwev LjMxPASrQPl9AUi1RZEjzM duOiBsZWZ0 WnX4WIN0oLVdbH2vzTcdyi dvdS5fSug+QmlydGggRGF0 QPb1B1HwJvd5EQGcwWhfZP 0ncGFkZGlu Iw9fhQmkyYotOW5fJEAdby ppt582UaBmt6koAJBbuOHb EPgpJLB9I27vn9P0VVIbRX SsHBB3jKY0 vH1nhKwxvqojzKCxxVgdeo RbxOhbHLgnRFzgO537LTFx iNltKyDfUMs6C5KdAfm1RY EyoLkfNR2h ePAiBAmaIu3giYxbiUjdCJ 7oAVBjnccnb271QrEbt4bi RUUpdIVuPFmrSAV3A68lj1 W0DAPuXUSz XXU6qJX4hL4niJvgxoxjcN VmdDsgdmVydGljYWwtYWxp U995JIIenYdiThEbrVa0J6 WwGdu7QZXf gUhsOL9rdZGcUYrjLl1kpJ zbdCihZQ7kFUEecksbc079 NxJkc2qoAVXckBPeFArtLU M5W55kn9S7 LRStJLUqMMA5mTR1gN0dyF lnbjogbGVmdDsgdmVydGlj USecWGbiT352MRUwkQgbBx BhdGllbnQg FUuqMDv6Y1SzYwykhSX+PC 66CZQnQW72oLYcsJQtg4lm wFt1SbPwFKLqYGR1wCavOK ycz6ZdTMXr U42dzWCcw1Q7IASilBjqsX EhFwRddCI4nT8bDQhexhcz n5uadbwxEqmyy6qsuk88rN 93K56lWChi ZHRoPSIzMCUiIHZhbGlnbj 9gxM6mUn0+PXCwyWN1oEX0 fC0wGOJwWzW3ZJogU582Im RvcCIvPjxj n3pof1ruyBp8SaN9XPRjpu AdxDrxGWT5g8RvOy87S89w IHdpZHRoPSIyMCUiIHZhbG ptfu0dtP4y Ii8+NHDkfGC2ePG1aD4lLj EnWqW5HWbaZ308JhFkyRBx IyetZ58vN2QrrTI+PHRyPj p2PSHyzQqe CP0bxAKyEUatDw1eGBE9Af XbAmEqDMkrP5HvHGAoukwj gnyinUS6LPWdNQNdhF99Pw 9udDogMTBw jNECbB3qgyqfy5miuuozMz RmCPXhCWs8RHp1TDBfwMmb VwFeYTR4RhT0SSF3bKRrsX 1hbGlnbjog bX2sZ3YgCNGnfojgFf63fK 4hQiTyBjQ1WKthBhy+Q1JB K0JFYsJkRNWTMXBRGnQbEK lDSEVMTEU8 E4PtNme4CEPjdFakVP6zdB CoRCgwPl7orYehoVctTV8w CJZdsrpcBQWwzP9fRDAatX MmqYjqUV4c DGPmvbjjy123RxJbTXH7DF TwuAVzQ8DtfS3qQqYeVUQl QVQqX2YzbHZyZUndI776NO zuRnK3GJUp vmSpO7MiSFLgtLwtVpB7i2 A6Ir1qGj3yCN8kHAa2BO71 UK37mRDpb2N0cCS0M2JeMO Rpbmctcmln oUX0ECNoEDHxzG33oFSmFE alHc5lt0S7x877AFUzHKLi vB44Qw8pqDvdQZQadFJBbL 6jkwbeu3ct kcfuEjAcSYYcVEi6GNw4GP OwgWieZuSrZHK4SkH7ILC7 dNJqlB8epMokgnaiyT6hVt c+MjYgWWVh gxN6K5JvNgi2PKWxqFmwBG 6bpJUbJRmeDz1pjYhxyOyf BR7jESSitrwmGAVdbE0nPP JvdHRvbTog GL6dRIPcwiydp799ZnRrCA W1MMKcvNEzK0TdbQ2vQeJh WRSnQRVxG6EiuJTdNDbrD9 42XKmtYuO5 QFXrdpXmP9EpQKWxtIjgZw Q3l7Q3Kk4PBR5YPIR7Y3Lg Iqq9VSYkpXlwYO2ieAZrEF meVr1hrAbi dKfdRU9lXAMmcyjgZHVtbJ 9pNUTwhGCozYpoJC7kZUEw gvbba483HiCpTQB3USWodH ZlZ0CwrI3w VmCgKVObVTGhM6KqtLBwFN yeR904PLjwVnL6WUPaujOb A4TdDIQptQdpMlO1u8M7Co 5PUDwvdGQ+ UD87jn61S2ZzVigcXks9ZK MbUSH5oNA7nF0pIWTeMDxr b7F0qRR7B5VxnhMohw6sy3 xsYXBzZTog F30dnILfo8Z9SDIckMB2FJ MalSdfLuEbxP89Nym+PGNv sNdks2UiSvwyb5fra3reeQ e9KlYbMWGq bqQfgNpfWPQ3f1XcBr40Y8 9sIHdpZHRoPSIzMCUiIHZh qUotdf5tfV9gIc9+PGNvbC C4hKE6yO3o ItVpVxB5AIpxW848CkCyxO YhGonru9jav2zkvJq2XdYh UNXeciVlrLlyZNC0g3MlSj 16R3WvdNaq e1IdEaj6rg45mVIcl6K7cL A8D7KgSUYkhksdaNEftLkw GP9dZXPygsqtOOLooT4pEH SxF9b4CnZt ZkA0SHjvI5GdvgY8KRTopU CgGMVutJFHfQ2wmbiyv4gm aadhCrMlTJQcFMq6VOd1VA FsaWduOiBs DRZ2IjF2FDW6zOIcbU5hnE jlfqxgkQ9vDnf+MAy9k7tp pCBeGR0huFH4KG42GG63xO Srq4X5gQP6 W2UkXREkrcdwakbcsEF6UF NmFJBuvP79Ob5laJnoUc0g YJZoLDX7QGMjjVYcV0SeeH 9yOiAjMDAw QCCwD7RmkYAwZPvmW646RI glNwE3WRTmyyNuW2SvTWWs jErvToL1q2O2Aw2TKH09NW 94ZM96fPSq x4X2vYT3Y3EeAGNhfacrxv kirHV4GBDdZEEshZ53Yb9i qQvhAd9fRMBaQII7LFBfhE DoF5HvhR5t XjZgOQOzDCQdZ4YpoTRbTB ggK031FTtiAxC2XAZdcvJr R4LrRYUsyXybVlQ7w1F1Xf 0NYu48FO58 MP81vWFkz5U6gTK9H5FyRL XkhvjojbqaqJQ9QHTlPAEv gI56Wh3bsBusZt0mJUWkDJ Z3VBQanDZk R4RjkM4pLwEdEBKvAPBcS1 CkzZLvHFbgU320MUxgUtP5 RAWstoQbD2SvIJQhcUraCo K2a6B7Dq6U XHifuwm2Z5FoKbzwcGS+PC 64CTEuGV83mORstTBlp1xg xDo7QgIlDGLhJYR2vWgdIT ogr0GvDMWt Y29 (more content not included)... Normal [facility] POCT Rapid Strepon S. pyogenes Ag IA Ql (Unsp spec) Negative Invalid Interpretation Code [facility] Comment on above: Performed By: #### 9 [id number] #### [facility] (DEFAULT) [address] [place] [id number] C Throaton 09-26-2024 C Throat Normal throat justine isolated No pathogens isolated Normal [facility] Comment on above: Performed By: #### 9 [id number] #### [facility] (DEFAULT) [address] [place] [address] Coding Summaryon 09-26-2024 Coding Summary HTMLBase 64 AionsijvBZs9xQl+PGhlYW Q+YT8QVVVqD84rnWXjwD3r M6YABHcMBmnuVSDTWYgGHo XynnBqWH0wfGIiWNJf IC8+VW2dVXOuSqfqsJFtv5 P1hLO6B48xbo3oRJhfgCA8 CXOlYcXcgwpdk7ipdFv7ZZ cuNmluOyBt JJLntM60QUX2qU40Ip18fO MyiVGsx0yxkHg3PoBhSHAx AFS0pQxdKSnhi1LmPUYaI7 7eyXUsq5B9 JPEnyDrwfLMqCpNwrNA6vC 0yBNhktqszg4nejkucFwx1 ge12mRQtl9D6mOM5Y7Uowb Y1RDAxdTXy MfxjfEVCiF1mlpbci1gdtz uwRlTjMVYkRNj9DKs2ENEb eNzkEzEiUJ71NER2FFElrx XcU4OnVFKx hHnpQjJ5m4J2Uy0NZ6QSIk vkX3WQCFFDWFuwyXC+PC90 ny01D6SqDitgTxd1TPTzWF C7hZE0zM3s PXDtGPdlx4F8oVA9Q9Jrhh Spgk9dv6kjFWZoNOfeY59b kOVix1W3QYRibGG5MIPhzQ nmGsVkjP34 Oyc+GAIquSagk4BbKosnk0 zmw8gndVg2IdgvRGNzgdJs rQfcCMS5e7AhRm5mLIHfxU T1xSA3rF2m WsJfItF2WLkkS564BzRruL QbGkzjV93mG6YfjWM+PHRy Sha1TWVdjQdqGA5gW9EnNP RpbmctbGVm iMzwKF8fFXSqagjvEQFlcI 2dQEEtS9j0UdCuNgP2HTbn Q2SiCOThdyulLq59xT2nUn NbJyB5XKlr Z8EnugW2NIMghHUiLMaeJA V5N33hd9I9FYPzIDRfXWE3 nEL4xI5syCidjvnwhXNxiC sgdmVydGlj IMbvCKepD628DHBbiBezJa NvZGluZyBEYXRlOiAgMDEv MjIvMjAyNTwvdGQ+PHRkIH X7mHkfIJMe lBMpKVfbDr0kyAqmqNbvUH 2dUWXdhijpTPFosR0zVMGa zFTmfUloZK0fQHRdoxkla6 86IuWzLJP3 KMBftWAaZ0SnrP1qMwNzQN BuOHFvN9DlzMJkECayC482 YUoyAxI6YWHlmjDsV4EqUW FsaWduOiB0 a4S3Wy1Vr2ItwkmdF4FloQ SlLrIkPjfeFAx5E5TrNkxr dHI+WF01SGYbFU67NLg4QY A5sGnmKVem QISlR4VslT6eUuSqHLMrWL RkOyc+PHRhYmxlIHdpZHRo AUaeSVGpVxSbyXdbLU0sYy 9yZGVyLWNv jEqeiQDpZyBvw6koGFVaNF apMX7ryYchE8CapBX7HVWq q3u3Vq25P87tZ9XzcHY+PG TpeKQ4rAS2 gO9fBnFoGbT8JEmsI096Ef YpeFLkStsbf4uvy0cvlJs0 JgV4ZTSkqwWnzKmoGHU0g6 UlVs79U56b IHdpZHRoPSIxNSUiIHZhbG mubu5deF8qQr3+PGNvbCB3 jRV1eZ5lCyUeUnY7YRteY6 49InRvcCIv Wjaqb9xzi7chsNf1RoOrAK JdbtMffOeaMNP3v2EvDw51 Y7FxeSaej9PpRgk1le81cC Ehj6P6nNG4 J7KsBLAxcpcatCJjeJnvMJ 9nJCFcifntTREkdO8nOOFn G0i4LkWmGsC0XRxxY8Irar Z8HACjsYJe YQPrdJGOiH4luxpdv2sxwd ihFsUlGZDgHZl6ZQu3LICw vGbpMzFwLYL9SnQ3QJU7wS EgrX8dxSld vhnrvX6nHzb+MYO2vBElqE XPNS3wHzkqsXN+PHRkIHN0 qSpcAMbiITOxxP8hMCPdX6 q3MhPxGoG8 ESiiX2YyfiR6BFNrmRZnLI ZrqPAYpN4cfvbsa4lclgnr ZiKcPMMlBSm7ACa8QYPwpO duOiBsZWZ0 FeQ3YAD9yKZdbO5ucLuieq ghpM8cTzd+QmlydGggRGF0 YLu6R6EvGwb4QGToiWoxUN 0ncGFkZGlu Ib0spFornPwyIJ5aKTRmst uhm546GnRnj4iuYIGenVHp LAvjQIM7Z46jp9I0ASIvFO QwRWW5yRK4 sX9weNunfjshdNNkyXgwko UueKlnNRptDSpqI193HWZa yYjdIsSfLMs0S4WjHnj3IO BvwAbqVB4l sGNlTVkpHg0ydImngMhkUD 5jHYAccarzo870WcTxd5zp UYBfoXFhDRzcDDZ3L66bq7 J5LHArQUAw QSO2lPQ0fT9wwRqmyngrxH VmdDsgdmVydGljYWwtYWxp U740RLAquFwzZyGktQv8U8 WqGcq0IZEh yHykXN8fiXBiXTkxCt0pwV wnpKywMJ0gMTXkkxpca870 MsCnu9lxRLZlsUFnAWluYH P3I25pz0H8 WMYaQEXaHWX0zFF6sU2dfT lnbjogbGVmdDsgdmVydGlj JIuiJXebH693VVXilGdaXl BhdGllbnQg KRqqVBt0A5QaRbapcYP+PC 33DOLjUT16bDXsdDZxo5it hHy4YtOyIQFkIOW6hOyeYE jvb5OlQWUq T81txESic0P2KNCncYdfvE QgTiQtwXQ9oW6fCUfwdzpm e4avpfvuYyygu8hfbf90iV 64O10kXIij ZHRoPSIzMCUiIHZhbGlnbj 9wsY3eAq3+MRKftMB0fIF6 lB2bZYOcRrQ3FAsnN292Ch RvcCIvPjxj c7oxd6cszSp5GaF3QVEcxm LlbLpmXBV0j8HzTk42Y19l IHdpZHRoPSIyMCUiIHZhbG mxcy0uaQ3d Ii8+RPVdjIJ8kUY7mV6yIv FqDfF1DNzsE840EoHcsTSc EjvqY05qD0JooPU+PHRyPj s7OIZacDqv HH2hxHWkIEckUs9oBMR5Gf OiCuIwNGfeQ7YiVCXogfqs eyyezTE8IQUaMCCwiI46Vt 9udDogMTBw dGKTfR0jbwvfe4brrlrkIr JlHCQhWUi4QPj8IWHleFgl UjJiTEO0LvB1DXB7sJXltX 1hbGlnbjog aC6gX0KyOLPoobsjIl83vC 8pJcLmJsO0WAujRwe+Q1JB H5PDBaRtMFLMUVJWLgAsDE lDSEVMTEU8 U4ZhVyl3PGIxcKvnPQ2njM LgGCjnQa4ziKmigDaiDL0a KEOvmhyfTFJsbH2eDYIdzI QudKcwZH4s DOQwddqlv158YcAkRAN9VL OdrYZxE5WgkX9oVaUvKCJv RGRkB1OfpPUkDZdnL605RA jjCtX9MXXp rzRmS7WvEUDopXrkRaW1y9 L2Gk2aTb9sAC3mTTo7FF01 NT68lGPeu1V8pQJ5X7JbZF Rpbmctcmln cKI4TWIgUNFbqL26gELxBX qsPt3sc8I9n532EMHgTHNx aH73Lj5irEusRNXxgOZLbS 4suxznm6ga ubqfNjSfXRSuRYo0PPp8AQ EiaCfuFgToBIH0TnY2YQU5 dJLkyR7neLpbmgvhyC5vFw c+MjYgWWVh taD0U0GyHuy9NTPdeUcbUL 1scQMzGUakUe4lvAotaYem PQ5nOMSwpdkjSAGivS8sNO JvdHRvbTog XP7rSVKjstkqy979CsYrOO D1REIbmYRzS0YfqS4gEfKl ODLzPPStL2PflLLtSXadU4 30TFlcMgZ1 ZLXljaHyW6OyUHEmiXwbEi K9p2B1Bl8BWA9FHLF4W8Sv Qzw2SCOktVguZE7tmPWaUE pbHk8ckMna fIkkIB4fIYLflbtxTWTweP 3sBZIbfMZeoHdaSF4gCETj jqvgg597KuZnWLL9EVGepZ WgY8SvvM6d NiVfUKZaEKUdU8IvuSMwOM ijP941DIltDeU8TEAzexXw L7LdXOUoyUhdUmW8p4Y4Ld 5PUDwvdGQ+ OI13sc21V2ClBhavSds0KK FzRGC8ePV6fX5nSQHuXQio x5H7jMA1Y7KavdSsdf2zq4 xsYXBzZTog W52ekXEib6V0ILEalSD2XV EecRcuYuTlqV80Uil+PGNv pEpug0BdRamoq5fch9yhyW r1KwTjEXSr ltFsnIzqFMM9o6UnYs88Z7 9sIHdpZHRoPSIzMCUiIHZh yCcabt6evD2lSp1+PGNvbC W1oOF2nR3w OsXcKtE1PZmuD117VkIjhI LpMdnlq0odp1cgnSl3XlGc DBRrepRcyNkmWHX2h7RpRx 20V0CsySkl k3QkHda5eb33lOSce3C4lG D9I7VnMKRxskwhpIRziGsg CZ4yEIXkxmapCYEhkK4aWZ SxY0n6EmUl AkP2KJbnR6OvndA6DZGoaZ TaJRGfkXOGgR0wastgy6qg reycGnLoLCNgOFq9HUx0US FsaWduOiBs XCP6RiV0USH0nUNcbT0usD ykztxcdA6qUxj+TKf7d3kp eRJzMS8rqHU2AL41NQ29sR Bdd7X0yOY0 U6RbLIWpboxeagxckHA2MD EuGXAudI35Qb8kyDvrYz6m OTAbKKQ4IHTayXXvY1RpvJ 9yOiAjMDAw HSWaD6UypGTyRVoiL493CL yqYfU6UQFrpuZmL9IaNUXs vElfZkJ5m8S2Fe6XMI52FP 19HI52yTId n0I2yCT5M0GuKWFtccazri yfrOC3GTZnISJvyL97Zy4x sSemCy1pFOXhYFN4ACSizQ EvV0LzsP9m UuVzOPXiCBPeQ2CjeBHmYI nhU882CQykZdC8VAUmfpXc I3ZwQIHffAyfOiN6o4X6Xp 6WVs35NK81 WQ55yHQik4R8eOJ6R7FfXN QhezlkqyocuZX8FQWvGRZl vM95Iq8frSrjVp0tWGSaLA W3GIPfaZHt N0HabE9dVaUxDMUlQLLtK9 DzqGGzJNbaR366ZTsvHyE1 SUQxvbVxT0UtKBIvmOuzJe P6g5B1Ig1Y JJppeku3I5KiYlpvzFD+PC 53GUWxET00cJJxmJGdd1rw kLm1FnHoRVPgNHL3zKmeQX hil7OjGSRu Y29 (more content not included)... Normal [facility] ED Clinical Summaryon 2024 ED Clinical Summary [facility] ? Urgent Care [address] [place], [place] [id number] Clinical Summary PERSON INFORMATION Name: SHERLY ASTUDILLO Age: 24 Years Sex: FEMALE : 2000 MRN: Acct#: Visit Reason: UC - Throat Problem; THROAT PROBLEM LT SIDE Arrival: 09/24/2024 12:32:36 Discharge: 09/24/2024 13:30:00 LOS: 000 00:58 Check In: 09/24/2024 12:32:36 Checkout: 09/24/2024 13:30:00 Address: [address] [facility] [address] PCP: Anthony Gomez MD PROVIDER INFORMATION Provider Role Assigned Unassigned Michaela Early MA ED Nurse 09/24/2024 12:34:37 JoleneLarissa hernandez Isis LEASE [facility] ED PA 09/24/2024 12:34:58 VITALS INFORMATION Vital [...] With: Address: When: Anthony Gomez MD [address] [place] [address] In 3 days Comments: You have been [...] next 3-5 days, also f/u with your TOMBSTONE ERECTOR, for reevaluation, return to the emergency department/urgent [...] 1:Oral sharon; 2:Pharyngitis Patient Understands: Comment: Normal [facility] ED Patient Summaryon 025 ED Patient Summary [facility] ? Urgent Care [address] [place] [address] PATIENT DISCHARGE INSTRUCTIONS Patient Information Name: SHERLY ASTUDILLO Age: 24 Years Date of : 2000 Reason For Visit: UC - Throat Problem; THROAT PROBLEM LT SIDE Arrival Time: 09/24/2024 12:32:36 Primary Care Physician: Anthony Gomez MD Attending Physician: Larissa Cobb Comment: Patient Education With: Address: When: Anthony Gomez MD [address] [place] [address] In 3 days Comments: You have [...] next 3-5 days, also f/u with your TOMBSTONE ERECTOR, for reevaluation, return to the emergency department/urgent [...] these instructions at home: Medicines ? Take ninx-kun-ruqaqtn and prescription medicines only as told by [...] cool-mist humidi (more content not included)... Normal [facility] POCT Rapid Strepon 5 S. pyogenes Ag IA Ql (Unsp spec) Negative Invalid Interpretation Code [facility] Comment on above: Performed By: #### [id number] #### [facility] (DEFAULT) [address] [place] [address] Urgent Care Recordon 025 Urgent Care Record [facility] ? Urgent Care [address] [place] [address] PATIENT DISCHARGE INSTRUCTIONS Patient Information Name: SHERLY ASTUDILLO Age: 24 Years Date of : 2000 Reason For Visit: UC - Throat Problem; THROAT PROBLEM LT SIDE Arrival Time: 09/24/2024 12:32:36 Primary Care Physician: Anthoyn Gomez MD Attending Physician: Larissa Cobb Comment: Visit Diagnosis: Diagnoses This Visit Oral sharon (B37.0) Pharyngitis (J02.9) UC - Throat Problem ([id number]) If you received any narcotics, sedation, or [...] With: Address: When: Jason MCNEAL, Anthony Santo [address] [place] [id number] In 3 days Comments: You have [...] next 3-5 days, also f/u with your TOMBSTONE ERECTOR, for reevaluation, return to the emergency department/urgent [...] and treatment you received today in the [facility] were for an urgent problem and are not intended as complete care. It is important for you to follow up with a doctor, nurse practitioner, or physician?s radiology assistant for ongoing care. If your symptoms [...] so we can reach you if necessary. [facility] has provided you with a complete list of medications post discharge. Please inform your computer analyst/provider of your visit and for further instruction on these medications. Any specific questions regarding your chronic medications and dosages should be discussed with your primary care physician(s) and/or pharmacist. New Medications [facility] [id number], [address] [place], [place] [id number], [phone] clotrimazole (clotrimazole 10 mg oral lozenge) 1 [...] it is (more content not included)... Normal [facility] Telephone Encounteron 2024 Gse Mechanic Authentication Interface Message Text Called patient lmom to call office for sooner appt... we have them available. Thank you Normal [facility] [employer] [facility] DRUG SCREEN RAPID (URINE )on 09-10-2024 [...] ng/mL CANNABINOID SCREEN URINE Negative NEGATIVE [facility] COCAINE SCREEN URINE Negative NEGATIVE [facility] METHADONE SCREEN URINE Negative NEGATIVE NO [facility] METHAMPHETAMINES SCREEN URINE Negative NEGATIVE [facility] OPIATE SCREEN URINE Negative NEGATIVE [facility] OXYCODONE SCREEN URINE Negative NEGATIVE NO [facility] PHENCYCLIDINE SCREEN URINE Negative NEGATIVE [facility] TRICYCLIC ANTIDEPRESSANT URINE Negative NEGATIVE [facility] CLINISYNC [facility] US OB 14+ WEEKS ANATOMY SCAN on [...] GDLNon AGE GDLN ACOG TESTING Note . [facility] Comment on above: TESTS RESULT FLAG UN [facility] REF RANGE LAB Clinician Provided Cytology Information Source.............Cervix Other.............. No. of containers..01 ThinPrep Vial Age Algo ACOG Crystal... - 01 FLAG LEGEND: L-Low Normal,H-High Normal,LL-Alert Low,HH-Alert High <-Panic Low,>-Panic High,A-Abnormal,AA-Critical Abnormal Performed at: 01 =G [facility] [address] [place] [address] Melissa García MD, IGP, RFX APTIMA HPV ASCU Note . [facility] Comment on above: TESTS RESULT FLAG UN ITS REF RANGE LAB DIAGNOSIS: 02 NEGATIVE FOR INTRAEPITHELIAL LESION OR MALIGNANCY. THIS SPECIMEN WAS RESCREENED PART OF OUR [employer] S[employer]IOR OFFICER PROGRAM. Specimen adequacy: 02 Satisfactory for evaluation. No endocervical component is identified. An endocervical component is not commonly seen in the patient. Performed by: 02 Emilie Frost, Screen Printing Machine Operator ([facility]) QC reviewed by: 02 Lauren Ness, Supervisory Screen Printing Machine Operator ([facility]) . 02 Note: Note 02 The [...] Low,>-Panic High,A-Abnormal,AA-Critical Abnormal Performed at: [address] [facility] [address] [place] [address] Melissa García MD, Performed at: =G - [facility] [address], [place] [id number] Space Sciences Director: Melissa García MD, Phone: [phone] Performed at: - [facility] [address], [place] [id number] Space Sciences Director: Melissa García MD, Phone: [phone] [facility] RECURRENT VAGINITIS (HTRX)on 08-15-2024 ATOPOBIUM VAGINAE 0 [facility] ATOPOBIUM VAGINAE Not detected [facility] BVAB 2,3 (BACTERIAL VAGINOSIS ASSOCIATED BACTERIA 2, 3); MOBILUNCUS SPP 0 [facility] BVAB 2,3 (BACTERIAL VAGINOSIS ASSOCIATED BACTERIA 2, 3); MOBILUNCUS SPP Not detected [facility] SHARON ALBICANS, PARAPSILOSIS, TROPICALIS 0 [facility] SHARON ALBICANS, PARAPSILOSIS, TROPICALIS Not detected [facility] SHARON GLABRATA 0 [facility] SHARON GLABRATA Not detected [facility] SHARON KRUSEI 0 [facility] SHARON KRUSEI Not detected [facility] CHLAMYDIA TRACHOMATIS 0 [facility] CHLAMYDIA TRACHOMATIS Not detected N [facility] GARDNERELLA VAGINALIS 29.341 Abnormal [facility] GARDNERELLA VAGINALIS Detected Abnormal [facility] Interpretation and review of laboratory results Abnormal [facility] MEGASPHAERA (TYPES 1, 2) 0 [facility] MEGASPHAERA (TYPES 1, 2) Not detected [facility] MYCOPLASMA GENITALIUM 0 [facility] MYCOPLASMA GENITALIUM Not detected N [facility] NEISSERIA GONORRHOEAE 0 [facility] NEISSERIA GONORRHOEAE Not detected N [facility] TRICHOMONAS VAGINALIS 0 [facility] TRICHOMONAS VAGINALIS Not detected N [facility] GLUCOSE TOLERANCE 3 HOURon 1 10-11-2023 GLUCOSE TOLERANCE 3 HOUR mg/dL [facility] Comment on above: GLU FAST 83 (<95) Co l: 08/10/24 0708 GLU 1HR 131 (<180) Col: 08/10/24 0812 GLU 2HR 124 (<155) Col: 08/10/24 0912 GLU 3HR 95 (<140) Col: 08/10/24 1013 CLINISYNC [facility] Urinalysis macro (dipstick) panel (U)on 08-08-2024 Bilirubin, UA Negative Negative - 4(70) +++ mg/dL [facility] Blood, UA Negative Negative - 50 Osvaldo/mcL [facility] Clarity, UA Clear [facility] Color, UA Yellow [facility] Glucose, UA Negative Negative - 2000(110) ++++ mg/dL [facility] Interpretation and review of laboratory results Normal [facility] Ketones, UA Negative Negative - 160(16) ++++ mg/dL [facility] Leukocytes, UA Negative Negative - 500+++ Edison/mcL [facility] Nitrite, UA Negative Negative - Positive [facility] pH, UA 5.5 5 - 9 [facility] Protein, UA Negative Negative - 2000(20) ++++ mg/dL [facility] Spec Grav, UA 1.02 1 - 1.03 [facility] Urobilinogen, UA 1.0 0.2 - 12 mg/dL [facility] GLUCOSE 1 HOURon 07-31-2024 Glucose [Mass/Vol] 132 mg/dL High NINF - 13 0 mg/dL [facility] Interpretation and review of laboratory results Abnormal [facility] CLINISYNC [facility] Coding Summaryon 07-16-2024 Coding Summary HTMLBase 64 BxzqlyecICy7nAd+PGhlYW Q+BO1MQWDyC45vcUZafL3v W2BCTOtGMbhiOMXWLYoLVn KdflWpIL1ykOCrUDIh IC8+XH6fPHMfTiwpaJZfd5 P9eOU8Z88hvs5fWHsflGI1 QFGpZwPamohwc0dwpOx2RQ cuNmluOyBt VRKbdC10LNE2fM07Cx55kD TlxZDto0fcsNx2KvJhWKXk GNM4gQtjPLtpl2NeOMVyG3 0xxNFzd7G8 OIGaoJtqrAZnYhTgmRL6tH 6wVUrckkabn9mqauykVqj9 fg87vJNhj2L8oMS1B9Gkbl S2HGObtYJd BjxlwCDYeI0lgcfhf0ykew tfMqUpUNCnBPo9TMl6ZMKa yMpqFhPlDT44NEA4PWMpnt RtN0ZpZHYh dSdkUsU3k9X0Yf6OG9CSAd moP1QDSZZSKYwzpOB+PC90 qi81N0WsRxohGws5ITRxIC T1cEK9fX1s CBZjCVaiw9A0uBF3G0Imzw Epei0gz0voZNSjKOesI22d xPXao8M4UNZxiRJ7MWRemZ sqFvYpjB95 Oyc+VRJehUzsu8KvHoatw0 xuo0mvfQl5JbumTWAhqfEy jUqbVRX4x3TgAb8qVDOojA S3wOA7vV8t PxWyMhE8APghS788XgXfgG GjCyzxH47aS4EwpHA+PHRy Zry4ZSFlmXdgZN8kF8KfEU RpbmctbGVm pOstSE1xLEFmkozaUUQdjV 8fDQMsS0i5YlEhXzS8CQql E9SiWPCcqghcIf96jT1qOp BnLoG3BWoy M8ZvuaN6OQUpdBGrOJdaUL S5N41bj0D5ZYQsUUUhZTE3 tYQ5vY8ieHzehlzppBDbsK sgdmVydGlj TDxdHAsbA614KESabOxkVo NvZGluZyBEYXRlOiAgMTEv MTEvMjAyNDwvdGQ+PHRkIH R8mMqkODMg sBSyOPfgDz2emQgnaTjiAN 4bDPByxuwhOYEmmV8wIQMu iPHfsXwuZG7gGTFqiirop2 58FtCePEQ2 YPGtgNSjW2NxoD2dHyZgXN AmNREsI6PdeNIpEKhzI092 ZUmoRmX0WTIgatTiN6DrAQ FsaWduOiB0 f4Z8Wr1Hj7PunhzvO1SnoF HyUxOeVrfzWQv7G2SaSfzs dHI+PJ36ITRhBY21ZEa2NG K0hPwkBPlw LFWaC5FmjZ3qUiLmVDZrKP RkOyc+PHRhYmxlIHdpZHRo PRueWTJxEnBacDsmIX0bPn 9yZGVyLWNv xMcexTKtCwFuz1rqNETpRC ajUP4fnUjjA8YgmLQ1CMAm y8d4Kj70X41tQ4RjxAV+PG ReiYY9rQJ2 wI2yNaGqKrR6ADwfC093Ys JbrQNqNxkiw0jyb6hmxYr9 NpC0JMZrnsUbsGmuQJW1n2 ZdTb14E74m IHdpZHRoPSIxNSUiIHZhbG zgdp1hcY8vHw3+PGNvbCB3 dXW1mW2zTrUrVaI7QFjwP8 49InRvcCIv Hquaj7kag0gpyDp1FsIeNM PncoItbEjsGRQ3l6KaNu82 Q6PvxUajt5VgWwz8ta83yP Kbn1G4gZV1 A5SfIZKllxsyxPEgrXwaPU 2yFUWypgvxFYXuoB4iYEHv M4u8DtTsLxF0FTifX2Gqra O1XTXdiRQq MYFncZCSoI2iioiwu0pbyu idCcKyORJeRHl5ELs0LBEr kItkGaHgRXG0SfL1OBJ7oD UydU3reQju yaoeyI4lVbl+ZMA2gUPhnT WQYE9oMnitwGN+PHRkIHN0 wGbuFDxlOBQayL7vOPVmK2 e7DxVxJiF7 UVmbC4OdlgI6AISrvDEqRK VcmIPPtQ5zzsyrt2movfwh SvZjUGCeUXy4PWa2PTUgjD duOiBsZWZ0 FcH1YGQ1iHRanC3slSmsof zfcH6xLyg+QmlydGggRGF0 GCh0L9GaYsb6QCGcjXhkCD 0ncGFkZGlu Su6laXijxHkgAM2fMVQmdw nco295NsKdk5vnTTAanEBk HUpeNFS8D58xz4O2LFUlJV PzHDU6tQG5 xJ3ykSqllgzzlBIkbHrbjy CxgXbhMRzfWIjjK536RMVp vZaeOyBaNLl4J9LvMaa4CQ FbhWusCW4u aRWjNSxfRd1srDqgbKytRI 2xWWIkenpin971ZlCmh8dx ESRjaYPrAWxnUWI6V97id2 B9KEPjERJs JXW3iSW3tS7qtOvluypgzV VmdDsgdmVydGljYWwtYWxp I224LBZysUqkFuRvtFr1D5 XfWkv7OLKx jKyrTU1hxDPyTGzpEi8hdV actLccNF0wZQLugijub059 MtEet9ttISFesVFuLXqtAA E5K48ge5R7 EQByICBcXHK3mAY2sV6ciA lnbjogbGVmdDsgdmVydGlj RCraSDziX230MKVgaDdhRv BhdGllbnQg HFunGXl7B5WhPgxvqCF+PC 04QDDyAZ24qCEmyEZqn1no qWx0LyJuHBYqQBI6pLyqMP ayz9OmDEFp F14okLBox7K8QYKflNpgtP VtMnPivVJ2hA6rCViskile b4dfipndYsimo9zxot16qG 65L25iBHzr ZHRoPSIzMCUiIHZhbGlnbj 4drV3eTd8+TVVlmAX8aPG1 pW6pOCHoZzZ7MKncX567Yk RvcCIvPjxj p9kbl7qmvVx7MsR5SBAgcn SkcPtoGNN1w5WkOq53O00j IHdpZHRoPSIyMCUiIHZhbG ufcl0nfR7i Ii8+LKQnoVP7yRD4eR7wKq KvOtH5RQxwY379UeTssSGw BtryV68jG4FbaER+PHRyPj z2YGYvjTwx RL4heMCgVRhiKa0hBGA0Pt PsPzHmXCjcA8WxDVRghdio dtyeaTE9GEYbYTQzqQ88Hw 9udDogMTBw gPBTzW5fqytyv6pvpuvtZx CbDGIwXBf1CAe4XRHyuEwa VxHuDMF0TrF2URQ0qZQlaP 1hbGlnbjog lJ7xB7TwGKSrqslgFo89aR 5nPxRfGkW3BEltXty+Q1JB Z1ZZSeDuSGFSOKBXByEwGS lDSEVMTEU8 K5OcMky0AUBhrZwfWB6siF WjIKtyQq1unEmfzXcwMY3y MWUmxffmTTCnqV6aOMWneF LfpJqbDO3k CIAjqsbrb657KoRrOTE3RC EkvXUaG0OdaY8aKtRzTSEn WPDcA3TxsYVyEYbsU524SN uoJmX5NQMr lvYfW4DiZHGyhWnfCzK6h4 J9Jg6hTj6vIK1jHIy4UW84 XV32fCOky0B3uAJ6C8AiQQ Rpbmctcmln nWH2YBBmGDWglJ25nWMmZN kaAq3zp2K7t792ZAFcRLGq vZ23By3rgVkgEAHuhBZSbX 7bqaanx2qi vgjuXnIhDGAtQDt9DCi4MW FidTkvAkFoVZU1XfK1XVP0 lNIjgH8rrQblujcgoF2uRe c+MjYgWWVh kpC7G6NqDcc9XUTysTcdFZ 4shELoUCukJg6uiFfwwAjg HQ6tKKVtpnehQYPcmK8wPU JvdHRvbTog AI8aQPUlnhjdd797XqHvTN J5CACvdQQqA1XjlB9zLxCi EETgECWxU2SghAAwHXzsW0 30UMoiKfC6 YQKjjxKbR0DqIYEoaGhzSs F1w9F0Fa5JYC3ZGEF1E1Tb Klx5IJGufDueKF3qpYLtZV sbYa3oeZqa qVgsNI1fYVUxlztbDHGlpW 2qNBYapHEhyUcdWX3nBATz ffihf538ObNeHBB9RWMuiO DfP5FwtT7o XeHcIZCkOIZxZ2DfiZLzBI deH469PPxpVkR3EQHvniEp Z5BdWLZgkCjjEsB3b0Y0Af 5PUDwvdGQ+ DB95pd98S1ZiLrmnOgp2IL NoMNY2lOS0aF8lJSJvLSwh r9L2wVJ1V3YazaBaxz5ji0 xsYXBzZTog F77atQUzl1M3NLMelOJ7NH JelArrEeMnwF14Bjr+PGNv lHkwg6OvEgcan4hsj4nnyU x3YwYfTCNp ndDrpMrqTUV9n2QdBz36C1 9sIHdpZHRoPSIzMCUiIHZh hBkbco8rzU5mFf7+PGNvbC R5pFL1mX7y UjWpOhG1LEtpB540PoMeaW PgQflbr7ibp6bnxOp3RxLk CDPkseDsyKaoQLH8a8XrZl 70X5VbrLsv k0PaYka0zz51yDGdk4H0aF I4B5FeJOLszbarkWExmKrs TB2jLTLyrgppYDJygN7nIS ZuJ8r9ExXc NhQ4RBdhX4RwefS2UDTruS TcMXDfvHIMwU8kvjkec7bd rgykWzXnJVRtQNw4ZHw3HT FsaWduOiBs ASW4ZzL8KPR1eOMkuQ3myK oapaqmhK4gYlp+KEt5k1ct xWVlDM6rdHP1HG71IE22aR Amf4U3bVL7 J3GfSWKhxkjxjgquaRV0IS HfTGUelP99Fx9fkIqbOl1q PSPiMCT7AFBuzAIuE0OxpW 9yOiAjMDAw WMCuQ7DlqJKaZScbG307GN jxVwL4JTDboqSyN4HmBAJl eVksCcE5t2Y6Ny9JJH19YS 62KJ92rQAm u2S0yRT2B0GuYNEfotzabj ewoBD6GVSrOKNdjU44Ph2k nIvzAu8qZVHfYFM8QQDgqY OgD8TstH8q ZjZaFFBnINLjF9RilYUvSY kvE395ZChrWwP3SYJopdUj I6PdEGZoqCvqBhC2u5D2Wl 1GLk85QM92 QC16nBBgw4L9jDA7S8PoOP ZwurnlpacrkBW4JSYfYPWz iC52So9cpKcjUy2uBBSaUL R5QWOmyETk A9RzxM9cUpLwXRGpHREcJ9 McfJPwGIzlI546WWcwFkO2 WRPcqiGxB1DsPRUaoUrjLv P5k4E7Ch8N ZOllylw9E7FxNuvskDY+PC 38SLNqTG82hKKyeVFyf0ke cYj8VgRwWMKlWZO0cHjrZU qol6LhLETn Y29 (more content not included)... Normal [facility] Urinalysis macro (dipstick) panel (U)on 07-10-2024 Bilirubin, UA Negative Negative - 4(70) +++ mg/dL [facility] Blood, UA Negative Negative - 50 Osvaldo/mcL [facility] Clarity, UA Clear [facility] Color, UA Yellow [facility] Glucose, UA Negative Negative - 1999(110) ++++ mg/dL [facility] Interpretation and review of laboratory results Abnormal [facility] Ketones, UA Negative Negative - 160(16) ++++ mg/dL [facility] Leukocytes, UA Positive Negative - 500+++ Edison/mcL [facility] Comment on above: small Nitrite, UA Negative Negative - Positive [facility] pH, UA 7 5 - 9 [facility] Protein, UA Negative Negative - 1999(20) ++++ mg/dL [facility] Spec Grav, UA 1.025 1 - 1.03 [facility] Urobilinogen, UA 1.0 0.2 - 12 mg/dL [facility] ED Clinical Summaryon 2023 ED Clinical Summary [facility] ? Urgent Care [address] [place] [address] Clinical Summary PERSON INFORMATION Name: SHERLY ASTUDILLO Age: 24 Years Sex: FEMALE : 2000 MRN: Acct#: Visit Reason: Vaginal discharge; VAGINAL ITCHING/DISCHARGE Arrival: 07/05/2024 10:15:34 Discharge: 07/05/2024 10:59:00 LOS: 000 00:44 Check In: 07/05/2024 10:15:34 Checkout: 07/05/2024 10:59:00 Address: [address] [place], [place] [id number] PCP: Anthony Gomez MD PROVIDER INFORMATION Provider [...] Location: Home PATIENT EDUCATION INFORMATION Instructions: Vaginitis, Czyd-bb-Yuse Follow-Up: With: Address: When: Anthony Gomez [address] [place] [address] Business (1) Within 5 to 7 days With: Address: When: COLE KEMPZIO [address] [place] [address] Business (1) Within 1 to 2 days DIAGNOSIS: Vaginitis Patient Understands: Yes - Patient/family/caregiv er verbalizes understanding of instructions given Comment: Normal [facility] ED Patient Summaryon 024 ED Patient Summary [facility] ? Urgent Care [address] [place] [address] PATIENT DISCHARGE INSTRUCTIONS Patient Information Name: SHERLY ASTUDILLO Age: 24 Years Date of : 2000 Reason For Visit: Vaginal discharge; VAGINAL ITCHING/DISCHARGE Arrival Time: 07/05/2024 10:15:34 Primary Care Physician: Anthony Gomez MD Attending Physician: Spenser Fang Comment: Patient Education With: Address: When: Anthony Gomez [address] [place] [address] Business (1) Within 5 to 7 days With: Address: When: COLE ALONSO [address] [place] [address] Business (1) Within 1 to [...] and use condoms. General instructions ? Take hwke-oqm-gbcrjce and prescription medicines only as told by [...] provider. Document Revised: 02/19/2021 Document Reviewed: 02/19/2021 [employer] Patient Education ? 2023 [employer] Medication Information: The exam and treatment you received today in the [facility] Emergency Department were for an urgent problem and are not intended as complete care. It is important for you to follow up with a doctor, nurse practitioner, or physician?s radiology assistant for ongoing care. If your symptoms become worse or you do not improve as expected and you are unable to reach your usual health care provider, you should return to the Emergency Department, we are available 24 hours a day. For those (more content not included)... Normal [facility] Urgent Care Note- Provideron 07-05-2024 [...] History Medical history: Resolved Ankle fracture, left ([id number]): Resolved. 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 Surgical history: Cholecystectomy ([id number]).. Family history: Anxiety Father Sister Diabetes mellitus [...] doctor a (more content not included)... Normal [facility] Urgent Care [place] 024 Urgent Care Record [facility] ? Urgent Care [address] [place] [address] PATIENT DISCHARGE INSTRUCTIONS Patient Information Name: SHERLY ASTUDILLO Age: 24 Years Date of : 2000 Reason For Visit: Vaginal discharge; VAGINAL ITCHING/DISCHARGE Arrival Time: 07/05/2024 10:15:34 Primary Care Physician: Anthony Gomez MD Attending Physician: Spenser Fang Comment: Visit Diagnosis: Diagnoses This Visit Vaginal discharge (023761078) Vaginitis (N76.0) If you received any narcotics, [...] documents With: Address: When: Anthony Gomez [address] [place] [address] Business (1) Within 5 to 7 days With: Address: When: COLE ALONSO [address] [place] [address] Business (1) Within 1 to 2 days Medication Information: The exam and treatment you received today in the [facility] Urgent [facility] were for an urgent problem and are not intended as complete care. It is important for you to follow up with a doctor, nurse practitioner, or physician?s radiology assistant for ongoing care. If your symptoms [...] so we can reach you if necessary. [facility] has provided you with a complete list of medications post discharge. Please inform your computer analyst/provider of your visit and for further instruction on these medications. Any specific questions regarding your chronic medications and dosages should be discussed with your primary care physician(s) and/or pharmacist. New Medications [facility] [id number], [address] [place], [place] [id number], [phone] terconazole topical (terconazole 0.4% vaginal cream) 1 [...] Eating food (more content not included)... Normal [facility] ALL CBC WITH AUTO DIFFon BASOPHILS ABSOLUTE AUTO [facility] Basophils/100 WBC (Bld) 0.3 % 0.2 - 2.0 % [facility] Eosinophils/100 WBC (Bld) 1.2 % 0.9 - 7.0 % [facility] Erythrocyte distribution width (RBC) [Ratio] 12.9 % 11.0 - 15.0 % [facility] Hematocrit (Bld) [Volume fraction] 40.3 % 36.0 - 48.0 % [facility] Hemoglobin (Bld) [Mass/Vol] 13.7 g/dL 12.0 - 16.0 g/dL [facility] IMMATURE GRANULOCYTES ABS AUTO 0.06 High [facility] Immature granulocytes/100 WBC (Bld) 0.5 % 0.0 - 0.5 % [facility] Interpretation and review of laboratory results Abnormal [facility] LYMPHOCYTES ABSOLUTE AUTO 2.5 [facility] Lymphocytes/100 WBC (Bld) 21.2 % 20.5 - 60.0 % [facility] MCH (RBC) [Entitic mass] 29 pg 26. 7 - 34.0 pg [facility] MCHC (RBC) [Mass/Vol] 34 g/dL 29.9 - 35.2 g/dL [facility] MCV (RBC) [Entitic vol] 85.2 fL 81.0 - 99.0 fL [facility] MONOCYTES ABSOLUTE AUTO 0.4 N [facility] Monocytes/100 WBC (Bld) 3.3 % 1.7 - 12.0 % [facility] NEUTROPHILS ABSOLUTE AUTO 8.7 High [facility] Neutrophils/100 WBC (Bld) 73.5 % 43.0 - 75.0 % [facility] Platelet mean volume (Bld) [Entitic vol] 9.5 fL 9.5 - 13.5 fL [facility] TBH EO # 0.1 [facility] TBH PLT [address] [facility] RBC 4.73 [facility] TB WBC 11.8 High [facility] CLINISYNC [facility] Outside Recordson 06-11-2024 Outside Records [id number]#[facility]. [facility]-08-2024 Coding Summary HTMLBase 64 BlqmmccsTFx8zGa+PGhlYW Q+FB0GKEOgD30tiYKlqO7s E8KFVYpBGeugXCFIZGqADq GgzqFoWX3nyAHjYWWg IC8+OW0mLDJeZplmqQWgo7 A3dYB0I86xbj2vKOlcsJR1 YEApCpFbbhete8fdoSd7RJ cuNmluOyBt WQEvzZ07OJR0eD81Gi97wJ AfyLNek9cbaYg4ArHrYVXv KXA2aZflDMejz0EsOMUcU0 7lhOLey2J6 OTSllIestCKxVlXsiIJ7kJ 1qZRbkdvkcm2tccduaMad2 sb63bGEqr8N5lMG5Z5Mpge R7YFZpmJEc WdrbtUCGeK6ndycnw5psfm daLqIqPQIcXWq8ABt4QZQa cHmkUeKiVS08HUF3ISHdle HaQ7YjSAGu rBgtAsD5s3C6Bv1HX8JMHi kxX2IMHRWWXOjaxTK+PC90 gv70N4BpLsklHlu8FRNdFV G0kSW4eE6c OGYhWIklk8B7vVJ8P6Nzjm Wkcr5al0naGYOiAOzrE03g rPMoo7O7DAJshPU0IJIjtP elEvRltL41 Oyc+TZZtxDguo4TgOdscp1 oex0bteYi2EsmfGKMjcePf jTlyNIO1o3CsJe2xLMUzoM S1jCA7qW3y MbPoTiH3XGqaT035TjStiF YxOutxD51nV3TzfEN+PHRy Eah7UJLgvXuhNV0vL9GwYE RpbmctbGVm vVjdAX4zLCFphnyiBSPqeC 6tVPQrK6s5DmHuJiD9GKdl R5DoJBXlhfmbDa68qV0sSr HrDrU2PRde R7AqcqQ9WSMhtPSqWTvlKY S2M22la3B8KZNoJJXnIXW9 dWY0rT8wlLrtegnzmNKjkF sgdmVydGlj GLihUOibN450GFAxlPixFv NvZGluZyBEYXRlOiAgMTAv MDQvMjAyNDwvdGQ+PHRkIH V7pNxbIYSw uFChPZanPx5qxYsvoJndQY 3cXNEubstpIWCbrF7kALLz oQQzdXyiHY2eZUCdztgsd3 95UyVhWQI0 PDBofQFrQ8VhxD6hIwWtCK YnXKOtK6TxeXRuQMcbE704 YSlqOdI2SCEucdYnD8MnHI FsaWduOiB0 g0B6Bp5Yp3ThrpasK4QbmN FkQoNsKffvSBd3S4EtZhdx dHI+RM81CZVpKY18SRw2CG B6iRxmRAil IUSuP7UsyH5bLqOjEFKiDS RkOyc+PHRhYmxlIHdpZHRo IRetABPrAvTsvIqmME1xLk 9yZGVyLWNv cAkdoYFzRkYzl0csTCDdPQ igAL3zjWztT9QviRW1JTQk p7q2Wm18W93eJ7YsiHW+PG LuqUB9yRN3 xK1rRxUeEjW2PSizQ841Zd OctCLiVwhxf7rfa8drkWo9 UgO4MAMcytFldTnzNJP7i3 ZiNx15J90f IHdpZHRoPSIxNSUiIHZhbG qdqy5onT4iFk5+PGNvbCB3 wBU6xP7wJhXiXwK7UQmmZ6 49InRvcCIv Gksfh4skz9poaYs6OoTkYQ LcsdEegDmaEMY9n5UdLe84 E1YcmTqgc8WzXfw0qe50eB Bcr3U5eCF0 S1AdMDMlvlivsMDnfCfaUU 8vGXRskysuLEZcjC9wFXGv N5m2BxOoAcI2IAouJ7Hvmg J7SXYupVFx VKTmySPIaC1ainqvz9vxvs peOuXxPUDbMSk6YZr4YGMv dVbfEpOtCER3IjI0NNG5nU OtqW7nlEwn vvzckX4aHsc+RXD3kVJxaX JFBY2vZkhxlNB+PHRkIHN0 mZfhRJfmLMWhuX1fWRAsZ9 m1PqItWcI1 KOnsO1XykzD5ARTyiSMxUM RaaEJMdI0cltyfo9iljecb ZwFgBSTpKDi9FFj3RZFztO duOiBsZWZ0 GsD9LVH6wSCprX9nhGmnwx jfvO6uYvt+QmlydGggRGF0 XKt2W1FbHmi7WRYhrHkyFM 0ncGFkZGlu Fo8wcIykyEjbJH3bSBYlhb owz437HzMhe7dlZTMlfHFd QOtcNAS1D10ce2L7OOPvIR JpEZA4kJE6 bU5viQvulaydzEEsnWmraw OaePvsFUnxJGkgE593AMOf wLqfBnVaVXb9E1KwPsq2YG CesVyeDC0p lLCwHYovOp6gvYtijSgyMT 9aAPDohmpmb392GdEzl5dg TDShwFQfUSrlFMI3W01oq7 B3IYZkVDRb TTC5nXR7tP6mrOmaglspkC VmdDsgdmVydGljYWwtYWxp K957SXUufVfaTxPlkCf2R8 EnNgd6KZEk kXosMM3dfDQkFLxsKl9agL ndcQigLG7cBHNpswidp734 QxNnd3osPMCjrFCtYUqwKP U3J30fq7E8 ZZUgDGDyNZR4uTV6xX2zeT lnbjogbGVmdDsgdmVydGlj PXwzNUorC971QSMamCgjOm BhdGllbnQg SJwrLRw8F3JyTzhtpLV+PC 28BGPaBL83oXOwhBAjv8ar oBn2FeKwGXDzUYJ2aZqzGN fga1PiYBSo D40eyFEhj9S1XLVovPhvoH KtErHcdFM6sK9rUAxywoha t7njxzcbLlmdw8frcl23xD 50N89xUBph ZHRoPSIzMCUiIHZhbGlnbj 9izC0tDq2+KCCupAK7oKA9 gD7mWAVtMuM9PFlyI542Nr RvcCIvPjxj z6qkx7lbtHk6WjG3LSZdye JqsKqhKEB9e1LcGp39S56g IHdpZHRoPSIyMCUiIHZhbG bwru7xbB8x Ii8+FAMywSR5gTI0qG1lMg KdBtF4QWblR755ZaIeqAYn NdxkI19jK2QzwFS+PHRyPj m8HEKxkCtj UM6zbTGcDNskNr4jEDF1Jb LdPzVpKBrdK0JvPTOhjfko qglfrEM8RKFlWAUqtJ50Ep 9udDogMTBw yERRrZ0zxzwzu6smdoppXw UkIMCbGPt1BMr4XMKlwMae TcZzJMB2ZkQ9OYC9mDPpwS 1hbGlnbjog yB7jU6XpOFDwcswyXo33qW 4yQcKrErR1NObsKtk+Q1JB T6RHVeRzTFDDBHALZdHuTV lDSEVMTEU8 Q1HwQzi6XMKbdWluGE7ehZ TgSZaaIi6gkAagkLhoPW3c JZMzebckUMAyqV9oUPJjzT KfxJwqPZ7i QNYtjkeon724SmYjDPW0BQ AncEVnL9QjfB9pSnRgWVCm UKLwN1EwdTGzPEodD821SU uqHtC9JURf nbMaU9NdIGNoaNmcVuJ0b7 H0Df8wNr9nOM1kNNx0IC67 PQ78uVSet7K0uQN3N7YlXQ Rpbmctcmln vTB1JHQnMQSqcH35kUFwAZ sgEi2di3M9b941CJXePJWk zB06Ta5rzSdjUMRigOUUcW 2ybbybc8qu xzpwBpVwRHTeKIe0PDs6IV AlsPihHwKnTMR6XrB3DHL5 qWPdxB0vsEfycjylkZ9zFf c+MjYgWWVh pmL8V7ZhGlb6AELzuFmxMW 5grNVwZYdwFt3fyXxdzSav ES3cDXWtvkylDXFsxM4lFX JvdHRvbTog EA3uUCWlnalta759UjAsSY Q6BJGthLPfE5WnkE4mVwVx SSHbYKDqZ9QhaSHyXHwlQ0 90YVgbCfZ8 ZLUujyMkX9NuLCDmzKfeTq A4m2P0Jq8VGF6AOUT9R5Jw Zbt8BLZoaWlpAL6ckWBfTW meLe8yvBdh oZdcMA0rTKVmzzbvHVUfpF 2uAZQfrKInxXztEN5fIPWx qhhhf071MbSpJAK5OEGzxM KiO9PebJ2p NfDfMNJmZYKcC4MaiEZjSS jcU491IAhoGtY7ZTTxfhMg I5XmWSHjjMkfGeF6y7Q0Pl 2ZqYSdI9Ku B8w7D9DhUbychJX+PC90YW CsXH05uXQjpKCko3cgaOi1 KnKeXJMnKAR8jOtlLEpus7 WrLPNnP02t dZVfy4R8TEUbkAyflAJeSd NzgEX2iP1sAGtckimbf8sn doviOvott9ubah16yG32O4 9sIHdpZHRo HZNsIGNaQLQkoBbrkd0fwE 9wIi8+VRIzhNC1cEQ6oJ2c TsVuZsE4PLtyQ826FxHveG LmLqtos9iy b3vxbLo3NcNoGYWasfQqdU tpAXS8u0AxYs53U70lYYhp ZHRoPSIyMCUiIHZhbGlnbj 2uiS4xJh4+ QY9ay3igio83vB01bNE+PH WpORN3uJewFWblOINkvL8o ZEpgDdC4ETBcKqEgzM32tL HjQDtcQl5j gQsudHcxXY0eOFWgxkjro6 04UuLce8asTYQyiVZsXOxf JFP5U17fy6E5LBFwXTPxOE M7gYM3oD3a bGlnbjogbGVmdDsgdmVydG jzBOlxBEydW806ITYnwNoq TuMkvFZrJ3lbrrHRAM8wEw wvdGQ+PHRk KRQ2zHwoUFsyJSCqmO0vEM AeL7v9SkXgOgA1VCbuG5Qj cyD7TYWywGZrIAHtzGNAkP 6cdradl4me dqkuFzIaKOPoMJk8FSh9TH BgrIwzVtEpLRX0SaP4WYS3 rTDhmK5cjXxpfkaxeH3uJv c+RklOOjwv dGQ+RTPwDXH1fIaeRAgaSM PkiV4iXVDoY8k4VoSvXsS9 SGosY7ImjiN4ELRubXQmPV IqoDIUbI5g pfvvt8whiczeRfFqVBQqEN h0VFd4OPNbjZhwEcWhOMT4 YoS4EZY5pCRxxG5beScffa hufF9dTzo+ TVJOOjwvdGQ+MVRpFVN3eA hyLQfwJPKufO4gQYOsZ1l6 GpPjVdC4WXizH0EokdG5WY JvbGQgMTBw zBVAvV9voidja2nmvxbpSj DuCCCyVHm0LAk7LJUadGoh FgPsCDX7XmV8GDV2yHCzkZ 1hbGlnbjog nO8zXgo+QZO8PAZ8UX79TT 32M9VpZvtrsXDyjSA+PHRh YmxlIHdpZHRoPScxMDAlJy YalWyeSM9r Ym9 (more content not included)... Normal [facility] HCG ( test) Ql (U)o n 06-07-2024 Interpretation and review of laboratory results Abnormal [facility] Healthcare Preg Test, Ur Positive [facility] Urinalysis macro (dipstick) panel (U)on 06-07-2024 Bilirubin, UA Negative Negative - 4(70) +++ mg/dL [facility] Blood, UA Negative Negative - 50 Osvaldo/mcL [facility] Clarity, UA Clear [facility] Color, UA Yellow [facility] Glucose, UA Negative Negative - 1999(110) ++++ mg/dL [facility] Interpretation and review of laboratory results Abnormal [facility] Ketones, UA Negative Negative - 160(16) ++++ mg/dL [facility] Leukocytes, UA Trace Negative - 500+++ Edison/mcL [facility] Nitrite, UA Negative Negative - Positive [facility] pH, UA 7.5 5 - 9 [facility] Protein, UA Negative Negative - 1999(20) ++++ mg/dL [facility] Spec Grav, UA 1.020 1 - 1.03 [facility] Urobilinogen, UA 0.2 0.2 - 12 mg/dL [facility] Coding Summaryon 06-05-2024 Coding Summary HTMLBase 64 NmcvnsyvQQt3oWu+PGhlYW Q+YG9YUPJrI48krFBzsH2j S1TPJPlVIqdvPJWHSClDLb NivvSzOS7eiMFcITDs IC8+HB7qZABkBtevhBNkb3 T1lNK0F91frl6oDImljKI1 JWErRvZcbmgis2gsiVb6ED cuNmluOyBt NDRxxS87SNT3zF33Bt97kN WbtMSum0ljnVt1VvDiVRLl PPW8cYsuEIskv9KqOXGiN8 9jvQYmw7W7 TSDklPybiNSeZcCekXI1lP 8tHCsrolzhj6ngerurHos0 to52bTXdz1F9pTO0I6Bhww Z9DFDneGTh UfdhoSFSvZ8grhetv5uvqv hvEsRlRDNsLSx4ZLc3ULFz mKhiJpKfCS61YXQ8TEGiti DrN3NvNYNl pQatZcI3o2X1Ci2SC5SYZa ziA1WNVVYRNWnluAE+PC90 gd64E4ZbFrjrOay2SRGrOU C3aQC5hG6j ODXiCKzil0I4wJG0Q3Vnow Qdsc6cl3lqNLObBVzdJ49x uOZtq9G4IOEfmYE5FCPmzE whEpJzeD85 Oyc+BGKogOcou5FwNrjek3 akk0xqaKk4TkpjZSVmvdQc jEtmNRP1p9HoQm2lSBTxpJ Q1mMM6nJ8o VhUzVeK5MUwoR885ZaNaoN ImGpicN55yL6PdoSL+PHRy Ecg9JOIiqWirSX4jA8OgMX RpbmctbGVm iLreHJ9nGCVqcelpFTVilB 3xYLUgL2h8EnTjMwN8YVqt K2OwAIWfghtmPw12wT0qQp IbYuX1CHlk K5CiydD5YIWogCAaFUarAQ R1S01qg0F5LVXhCIXjDAT5 vIJ6nM2hqUqyfecmvZTgcH sgdmVydGlj TLfcABliQ768POHmaEdaEr NvZGluZyBEYXRlOiAgMTAv MDEvMjAyNDwvdGQ+PHRkIH V0qQwbYGQj lQVoEHueZj5chLigoYpeHS 0yNLUtolmqDDAbuI1rPZDb uYSorEsjUG3qGLIdbakdv6 96TpQsPVC3 IOQcuYTfO7JngR5oAtVyZL QiDPMoG0IphAOkFWfkK591 MFyyQxN0NHYifjBqL6GqLD FsaWduOiB0 m9Z4Tq4Dr8MeixinY1PtuX QzThZiQbanIKm4D2JzHpqz dHI+IX89MDKgSA17IKc1XS Q0pYkwEDhk KFAjF4NmjD8iMhHzIRGpFI RkOyc+PHRhYmxlIHdpZHRo NPphZTOfRxEihHczPU1rAa 9yZGVyLWNv kXhwcIMhJqCjm4uoTEErRJ udUV4lgInvS5TlbJB3GFLe q0x0Jv51W28gL4VapUZ+PG HqfFG8oFX7 lX3eUvEhOaR7PFfuI642Rq BgcUAeZawxs5beu6vpmUf1 DyQ0YXEiicUpvEyaDCS1g4 OyKs01Y10q IHdpZHRoPSIxNSUiIHZhbG jtwv2qrA6qMb3+PGNvbCB3 vOC1yH1xBlSeUeF3BHghL4 49InRvcCIv Boybx8blm6ihlVr9HwIfGG VgveQspTkiSJV7r9FmWi64 O7KnmPnrt9FsXac8ry97dH Rxq9K0lGC3 L1PfAZIdcddtmDQmfXsfCH 4zEYBhpqgtKEYsoB5kSTUm P4o0RoGtAeJ0LNfnF6Dwze K2QWZyiEXt JNEomPZWzS0yzhaql5gazq isReAzFOPuBYd6ADt7AZLn pVqrCbXiFEU9AhZ4HDY1fK TdfE8ncOad klsolO4tZmr+WBF3qGYqrM KXBP0kPobgpYB+PHRkIHN0 dJkuRCzaFYPaoA5kVKXzB7 l9UvWyWxF2 OKgtT3KlwwZ1FUXxnMWvFC UdoLAKoW0gsbkdl9hpvxeu AnDbOKUvIWz3SFn9VKBdeZ duOiBsZWZ0 NfD8WLC9iOXhwZ6tsRtnmb nbxH9zCpo+QmlydGggRGF0 RNt9C0AuCgy6URVwvKfwUN 0ncGFkZGlu Af5gfGcecEusIA4cDAViyh nbn794JzQpj6kgJYKwlMPv RDyvWQL2V28lt8M4IATpNS EhBOJ5eYQ8 mG2uuGoiubpzsJWvqYkezs UrwXcxVSbrKPsoF267RZDz cKfoVxYlAFt7J5YlRku3TX QsuMvwQJ8s wHGoCDylFd5tmVaqjVdtMH 9lGACmanedt336MuDhr6fs ZSMsnDAqJAzsFPA5I22rx4 U4VXPmOIBy LBQ5jMJ5kR0buNvunzjpsQ VmdDsgdmVydGljYWwtYWxp Z038RIRgaEycAkOnhEn2I3 WaZtk5CLSn wYbkSV8grZGhGHpkDl6doZ veyElbPQ0bWOKtzxftg143 PpSwy4fkVQCooOObYKqyHF L7D51mf9J3 MEDlZCBsVAS9yEC3uE7aeZ lnbjogbGVmdDsgdmVydGlj CObqBWmjN970BHAzbDbyUg BhdGllbnQg JXeiYDw6D5EoZyaxaHE+PC 53FOItZP98tZHteSPny9yf oCj4WoJtEOFrMDA0qJpyCE wrr0XpAOIs W14nyZIlx2J9DEUdxJfyyK OjGiQunUD1hC2xXHvkpscc t3gtkdvrDtnmx0vssg41zC 75N35aFInx ZHRoPSIzMCUiIHZhbGlnbj 5euP3sTa6+KBWstGV4hMO0 gI1bOKWgBqR4OPibO346Lz RvcCIvPjxj v4eij9fodKv6PyG7RJLejd PdyEnlAFS8z7QkJv41B11e IHdpZHRoPSIyMCUiIHZhbG cnbg7jbG5w Ii8+LZLqkKS0wVX2oL0xCf HtNrO1BUhtW797PcDnaGQx GcliI25rK4VjcUZ+PHRyPj k8JCMfhBaa AE9vmDOuWWmqQm6tJTP3Vf GlTkWeHHstW3NkNYFwelbb clsigRS0JBCyXSJwaR93Ib 9udDogMTBw eXXFtW1tcxvoc4vutmwyMa PfMFMnKHj9ABu8FZHgcSxb BoWaCLI0TcK4ZKV8uWDlaW 1hbGlnbjog yC4uG8QoYGCtmmjuDh15yV 4nRbYoGcT2QXmnVnm+Q1JB R7STKgDtOCXULLOZNhDoBK lDSEVMTEU8 U6KnXvi9LIZnbDnsCV5nuK KpZIbpQh0vbOjvtCsaVX7x STAachxjYVHbwG8fWLHhhJ TvrAxrIK2y DEUddugos561UjByJTB9PI GhfTWzN7GoeC5jHmRcCCPx YVTqH0LenFGnIVvqN680UX weVtG9MNTa ghEnR3VyNBRinCfuWtR3r1 O5Fp1zZf4lEJ5hTHq8GG49 XI48jBMux7Y3eSW8X4MxQY Rpbmctcmln tRP7WKVdHLUdhI88tFJbHF hqRj3qg6S1x989XXWtBZVp rF57Tg8foUhsNXObdBMGaW 4zklvbp8pz eewnGsBpUYRiLMt1IIg3AX BzyLdlFqEkXGT1GaZ4NUV9 sBWfiP7ibDvkngiakH5cHe c+MjYgWWVh imV7V5OxEpv2PQFzgUtsCJ 8szQEnZDqqDl3icPhqbXfu XS8rOXNvvismPXTzzP4aGZ JvdHRvbTog LJ3dFTBpcutrl672RjYrBX E9KCZzzHSmH4FzlR7oZlWr HHCnTHKwW0ExeTEmXEbaI9 15VIlaIvF9 HTVppxRmV0KsKZJfxKcyVo I3g6R8Zx0HRK9ZLOX0L0Me Mfe5DMZucUigQE4rcLViNN ddKl4afTbg hNdyCA7wKEIjdozlTTSaoG 3jXXFkqMVroRdcCW9dMQTd dwetd469McAgZBF5GDShuR KjJ7YwvL2e YyDcTDYaDBZlO8DteJRzTA msN383VVozAaH2CKJhpqUm M1GbXUBozPbfVgU3w4I0Vt 5PUDwvdGQ+ QO63vp70Z9FeJihvLgl0AR WqLXC2iSO2jK5jLMWwKEyt s0K5fLS0V1JnpmEgxg7gv7 xsYXBzZTog J11zyLJot1C7OIRhePE1IO OviFvcEnSjdR88Zvc+PGNv aKhfl5DtGjgab6zvf4askN x0JvJjQXSi hwHkbWyiRBN6c8PzTf98F2 9sIHdpZHRoPSIzMCUiIHZh mAcmdk0jxP7wLz4+PGNvbC H7tJD5yZ6p BeZgIeF1MHvvR765XsMisA QaKcgfc6akk0yqgDc6MkFp ECHnbdAyeYaeYHP9k8KmSi 86Q8EzaPtj m1OzWuv0rl68mUNsq5K5bE W0D3SvDXDdhnmloBXrmIwh FM6bIOPqjetfJITpgZ3mLU FnI9v9AuTd MxJ4CKanR3RmgqA8KAXdqR KcKEMvdUTDaO8iontci4jg lffcUfGpKERbZEc1YDo7KQ FsaWduOiBs PCJ8UaQ3PCF0jPEkeA4gyK susmpfkF5hWlj+QCi2v7yl nZWxWB0dtFH2YG10LE49rG Nym6R8wWO7 Y8TlBLJiczlsfaoixLZ8CD HwOXYzzL61Hf2juAdbHj7q OCDfWQM2GTMxbGWiA0GqwR 9yOiAjMDAw WBLgU2LdiYEbDHmnB702RX ctLpH2UBNgchZjQ0TtXMCm mUqiNzJ1z0K5Vm3QMC68QZ 28TL67zWJh p4D9wUA0A4CeYWRcjdmhyt tgjNH7DYThPQAsxL44Ys5n rDonPk9cKBWgPJP1XXPnrA VhW2XvvJ6h XpQeJFLmMDHbN7JwdCKqSC puP332DXexRlS4XNSwnuJk H7LjIMEwxYkpGoK4i0Q9Ng 2IPw64VW56 FB86oXRuz9U4vYS8Q2WgYU VjjnzhtoxmpPR1RUDkXFHt oB04Cn7ybVuhUp7yKIVoDU B8PCMgeOEr W8OsbE1qEpBwQMJjTAOkC1 WcsWYuRCvhY612EFqkNvE8 VDQartOiO4FbTBFbjAfaNj Z8w8X0Yh0F RYepbfu8S9ZfKauldFU+PC 23BSRbGL47dNCrdRSqi9no mRn4TwQsJSIgSZG2uWyhCJ wnn7LzKRIr Y29 (more content not included)... Normal [facility] Office/Clinic Noteon 024 Office/Clinic Note Patient: SHERLY [...] 113.040 kg Body Mass Index 39.11 kg/m2 [place] Body Weight Calculated 61.437 kg BSA Measured 2.31 m2 General: Alert and oriented, No acute distress. Musculoskeletal: Positive point tenderness over the left gluteal region as compared to the right. Positive straight leg raise. Positive piriformis muscle sign with external rotation of the hip with adduction towards the opposite shoulder.. Impression and Plan Diagnosis Sciatica of left side ([id number] M54.32). Plan: Discussed with patient stretches she can do to help with her sciatica. They were demonstrated in the office. Will hold off on any steroids.. Orders Orders Evaluation and Management: [id number] Office visit - established pt, Level 3 (Order): 06/01/2024 13:28 EDT, Qty: 1, Sciatica of left side. [Electronically Signed on: 06/01/2024 13:56 EDT] Anthony Gomez MD [Verified on: 06/01/2024 13:56 EDT] Jason MCNEAL, Anthony Santo Normal [facility] .Auto Diff 05-28-2024 Auto [place] % 5 % Normal 1-12 [facility] Comment on above: Performed By: #### 1 [id number] #### [facility] (DEFAULT) [address] [place] [address] [id number] Baso Abs# 0.1 x10 Normal 0.0-0.2 [facility] Comment on above: Performed By: #### 1 [id number] #### [facility] (DEFAULT) [address] [place] [address] 64181 Basophils/100 WBC (Bld) 0.6 % Normal 0.2-2.0 [facility] Comment on above: Performed By: #### 1 [id number] #### [facility] (DEFAULT) [address] [place] [address] 92244 Eos Abs# 0.3 x10 Normal 0.0-0.4 [facility] Comment on above: Performed By: #### 1 [id number] #### [facility] (DEFAULT) [address] [place] [address] 90097 Eosinophils/100 WBC (Bld) 2.5 % Normal 0.9-4.0 [facility] Comment on above: Performed By: #### 1 [id number] #### [facility] (DEFAULT) [address] [place] [address] 44368 Lymph Abs# 3.6 x10 High 1.3-2.9 [facility] Comment on above: Performed By: #### 1 [id number], 7267925, 3300187, [id number] #### [facility] (DEFAULT) [address] [place] [address] 01080 Lymphocytes/100 WBC (Bld) 27 % Normal 14-48 [facility] Comment on above: Performed By: #### 1 3419175, 3786933, 7011655, [id number] #### [facility] (DEFAULT) [address] [place] [address] P[place] Abs# 0.7 x10 Normal 0.0-0.8 [facility] Comment on above: Performed By: #### 1 0640730, 3737229, 9596136, [id number] #### [facility] (DEFAULT) [address] [place] [address] Neut Abs# 8.4 x10 Normal 1.5-9.2 [facility] Comment on above: Performed By: #### 1 5921466, 4594727, 6656048, [id number] #### [facility] (DEFAULT) [address] [place] [address] Neutrophils/100 WBC (Bld) 64 % Normal 44-88 [facility] Comment on above: Performed By: #### 1 8368692, 1996742, 8378047, [id number] #### [facility] (DEFAULT) [address] [place] [address] CBC w/ Auto Diffon 4 Man Diff? Auto Invalid Interpretation Code [facility] Comment on above: Performed By: #### 1 5489413, 8041843, 8009339, [id number] #### [facility] (DEFAULT) [address] [place] [address] Erythrocyte distribution width (RBC) [Ratio] 13.6 % Normal 11.5-15.0 [facility] Comment on above: Performed By: #### 1 9817571, 2050474, 9811380, [id number] #### [facility] (DEFAULT) [address] [place] [address] Hematocrit (Bld) [Volume fraction] 42.0 % High 33.7-40.4 [facility] Comment on above: Performed By: #### 1 3456198, 8570112, 8872582, [id number] #### [facility] (DEFAULT) [address] [place] [address] Hemoglobin (Bld) [Mass/Vol] 13.8 g/dL Normal 11.3-15.9 [facility] Comment on above: Performed By: #### 1 9684932, 2790617, 2902499, [id number] #### [facility] (DEFAULT) [address] [place] [address] 93536 MCH (RBC) [Entitic mass] 28 pg Normal 24-34 [facility] Comment on above: Performed By: #### 1 4518513, 4718934, 3320631, [id number] #### [facility] (DEFAULT) [address] [place] [address] 83409 MCHC (RBC) [Mass/Vol] 33 g/dL Normal 26-37 [facility] Comment on above: Performed By: #### 1 6602800, 0264027, 5419682, [id number] #### [facility] (DEFAULT) [address] [place] [address] 16561 MCV (RBC) [Entitic vol] 86 fL Normal 81-100 [facility] Comment on above: Performed By: #### 1 7216361, 1179493, 3726995, [id number] #### [facility] (DEFAULT) [address] [place] [address] 02319 Platelet 352 x10 Normal 138-427 [facility] Comment on above: Performed By: #### 1 0996893, 1540416, 8461383, [id number] #### [facility] (DEFAULT) [address] [place] [address] 15044 Platelet mean volume (Bld) [Entitic vol] 7.8 fL Normal 6.3-10.2 [facility] Comment on above: Performed By: #### 1 8905336, 4418285, 2855040, [id number] #### [facility] (DEFAULT) [address] [place] [address] 71443 RBC 4.90 x10 Normal 3.70-5.30 [facility] Comment on above: Performed By: #### 1 2698568, 6902519, 6791798, [id number] #### [facility] (DEFAULT) [address] [place] [address] 32075 WBC 13.1 x10 High 3.5-10.5 [facility] Comment on above: Performed By: #### 1 3022941, 4255299, 7050966, [id number] #### [facility] (DEFAULT) [address] [place] [address] 58177 CMP Standardon 05-28-2024 eGFR Non AA >60 Invalid Interpretation Code [facility] Comment on above: Performed By: #### 1 9315355, 7747556, 9685726, [id number] ####[facility] (DEFAULT)[address] [place] [address] 47028 eGFR AA >60 Invalid Interpretation Code [facility] Comment on above: Performed By: #### 1 4342819, 2690748, 9867232, [id number] ####[facility] (DEFAULT)[address] [place] [address] 44776 Albumin [Mass/Vol] 4.4 g/dL Normal 3.5-5.0 [facility] Comment on above: Performed By: #### 1 6855822, 2163215, 8414505, [id number] ####[facility] (DEFAULT)[address] [place] [address] 23046 Albumin/Globulin [Mass ratio] 1.2 {ratio} Low 1.4-2.6 [facility] Comment on above: Performed By: #### 1 9243472, 8603624, 4220357, [id number] ####[facility] (DEFAULT)[address] [place] [address] 96286 Alk Phos 46 IU/L Normal 32-91 [facility] Comment on above: Performed By: #### 1 9351648, 7821081, 4289661, [id number] ####[facility] (DEFAULT)[address] [place] [address] 28936 ALT [Catalytic activity/Vol] 29.0 U/L Normal 14.0-54.0 [facility] Comment on above: Performed By: #### 1 9762382, 1938257, 3307862, [id number] ####[facility] (DEFAULT)[address] [place] [address] 89279 Anion gap [Moles/Vol] 11.4 mmol/L Normal 5.0-19.0 [facility] Comment on above: Performed By: #### 1 2223553, 7134005, 3932143, [id number] ####[facility] (DEFAULT)[address] [place] [address] 38268 AST [Catalytic activity/Vol] 30 U/L Normal 15-41 [facility] Comment on above: Performed By: #### 1 6852823, 8018833, 7136350, [id number] ####[facility] (DEFAULT)[address] [place] [address] 63275 Bili Total 0.4 mg/dL Normal 0.3-1.2 [facility] Comment on above: Performed By: #### 1 4218204, 4802519, 1345756, [id number] ####[facility] (DEFAULT)[address] [place] [address] 45881 Calcium [Mass/Vol] 8.9 mg/dL Normal 8.9-10.3 [facility] Comment on above: Performed By: #### 1 5178297, 6535636, 1769816, [id number] ####[facility] (DEFAULT)[address] [place] [address] 30926 Chloride [Moles/Vol] 104 mmol/L Normal 101-111 [facility] Comment on above: Performed By: #### 1 1257890, 6227395, 5610273, [id number] ####[facility] (DEFAULT)[address] [place] [address] 98312 CO2 [Moles/Vol] 20 mmol/L Low 21-32 [facility] Comment on above: Performed By: #### 1 6165102, 0236802, 9147431, [id number] ####[facility] (DEFAULT)[address] [place] [address] 01625 Creatinine [Mass/Vol] 0.66 mg/dL Normal 0.60-1.30 [facility] Comment on above: Performed By: #### 1 7415971, 6625012, 4025297, [id number] ####[facility] (DEFAULT)[address] [place] [address] 05878 Globulin (S) [Mass/Vol] 3.5 g/dL Normal 1.5-4.3 [facility] Comment on above: Performed By: #### 1 9938166, 6498877, 8293128, [id number] ####[facility] (DEFAULT)[address] [place] [address] 90901 Glucose [Mass/Vol] 100.0 mg/dL Normal 74.0-118.0 [facility] Comment on above: Performed By: #### 1 4103575, 1987171, 2319520, [id number] ####[facility] (DEFAULT)[address] [place] [address] Osmolality 263 mOsm/L Invalid Interpretation Code [facility] Comment on above: Performed By: #### 1 6666049, 6248881, 3711793, [id number] ####[facility] (DEFAULT)[address] [place] [address] 40586 Potassium [Moles/Vol] 3.4 mmol/L Low 3.6-5.1 [facility] Comment on above: Performed By: #### 1 0883993, 4234446, 4634970, [id number] ####[facility] (DEFAULT)[address] [place] [address] 40299 Protein [Mass/Vol] 7.9 g/dL Normal 6.5-8.1 [facility] Comment on above: Performed By: #### 1 9047592, 7228244, 7438662, [id number] ####[facility] (DEFAULT)[address] [place] [address] 83736 Sodium [Moles/Vol] 132.0 mmol/L Low 136.0-144.0 [facility] Comment on above: Performed By: #### 1 5754303, 2309319, 9908589, [id number] ####[facility] (DEFAULT)[address] [place] [address] 08266 Urea nitrogen [Mass/Vol] 9 mg/dL Normal 8-26 [facility] Comment on above: Performed By: #### 1 0925256, 6328389, 2424055, [id number] ####[facility] (DEFAULT)[address] [place] [address] Urea nitrogen/Creatinine [Mass ratio] 13.6 mg/mg Normal 4.6-16.2 [facility] Comment on above: Performed By: #### 1 1521085, 0139523, 7041448, 2910231335 ####[facility] (DEFAULT)[address] [place] [address] 26846 ED Clinical Summaryon 2023 ED Clinical Summary [facility] - Emergency Department [address] [place] [address] 26868 ED Clinical Summary PERSON INFORMATION Name: SHERLY ASTUDILLO Age: 24 Years Sex: FEMALE : 2000 MRN: Acct#: Visit Reason: Back pain; Abdominal pain - ; ABD PAIN LT SIDE, LT LEG NUMB Arrival: 05/28/2024 14:14:57 Discharge: 05/28/2024 17:55:00 LOS: 000 03:41 Check In: 05/28/2024 14:14:57 Checkout:05/28/2024 17:55:00 Address: [address] [place], [place] [id number] PCP: Anthony Gomez MD PROVIDER INFORMATION Provider [...] Home PATIENT EDUCATION INFORMATION Instructions: Muscle Strain, Gdcm-ps-Xfup; Sciatica, Bbfy-yj-Sojv; Back Exercises, Aopq-hf-Ugrn Follow-Up: With: Address: When: Anthony Gomez MD [address] [place] [address] 23339 Within 3 to 5 days DIAGNOSIS: 1:6 weeks gestation of ; 2:Low back pain with left-sided sciatica; 3:Pain in the side Patient Understands: Yes - Patient/family/caregiv er verbalizes understanding of instructions given Comment: [facility] ED Clinical Summary [facility] ? Urgent Care [address] [place] [address] Clinical Summary PERSON INFORMATION Name: SHERLY ASTUDILLO Age: 24 Years Sex: FEMALE : 2000 MRN: Acct#: Visit Reason: UC - Abdominal Pain; LT SIDE PAIN, LEG PAIN Arrival: 05/28/2024 14:07:02 Discharge: 05/28/2024 14:10:00 LOS: 000 00:03 Check In: 05/28/2024 14:07:02 Checkout: 05/28/2024 14:10:00 Address: [address] [facility] [address] PCP: Anthony Gomez MD PROVIDER INFORMATION Provider [...] left flank pain; Currently Patient Understands: Comment: [facility] ED Note-Nursingon 05-28-2024 ED Note-Nursing Event Operations Manager at bedside while US was performed. pt tolerated well [facility] ED Note-Nursing Pt ambulatory back t [...] is A/Ox4 call light within reach Normal [facility] ED Patient Summaryon 024 ED Patient Summary [facility] - Emergency Department [address] [place], [place] [id number] PATIENT DISCHARGE INSTRUCTIONS Patient Information Name: SHERLY ASTUDILLO Age: 24 Years Date of : 2000 Reason For Visit: Back pain; Abdominal pain - ; ABD PAIN LT SIDE, LT LEG NUMB Arrival Time: 05/28/2024 14:14:57 Primary Care Physician: Anthony Gomez MD Attending Physician: Pam Gao MD Comment: Visit Diagnosis: Diagnoses This Visit 6 weeks gestation of (Z3A.01) Abdominal pain - ([id number]) Back pain ([id number]) Low back pain with left-sided sciatica (M54.42) Pain in the side (R10.9) The Pharmacy at [facility] is open Tuesday through Tuesday from [...] contact the Mental Health & Recovery Board [facility] 28/03 Crisis Hotline -Text 0WFMZ hh [phone]. If you received any narcotics, sedation, or [...] documents With: Address: When: Anthony Gomez MD [address] [place] [address] [phone] Within 3 to 5 days Medication Information: The exam and treatment you received today in the [facility] Emergency Department were for an urgent problem and are not intended as complete care. It is important for you to follow up with a doctor, nurse practitioner, or physician?s radiology assistant for ongoing care. If your symptoms [...] so we can reach you if necessary. [facility] Emergency Department has provided you with a complete list of medications post discharge. Please inform your computer analyst/provider of your visit and for further instruction [...] can happen (more content not included)... Normal [facility] ED Patient Summary [facility] ? Urgent Care [address] [place] [address] PATIENT DISCHARGE INSTRUCTIONS Patient Information Name: SHERLY ASTUDILLO Age: 24 Years Date of : 2000 Reason For Visit: UC - Abdominal Pain; LT SIDE PAIN, LEG PAIN Arrival Time: 05/28/2024 14:07:02 Primary Care Physician: Anthony Gomez MD Attending Physician: Spenser Fang Comment: Patient Education Medication Information: The exam and treatment you received today in the [facility] Emergency Department were for an urgent problem and are not intended as complete care. It is important for you to follow up with a doctor, nurse practitioner, or physician?s radiology assistant for ongoing care. If your symptoms [...] so we can reach you if necessary. [facility] Emergency Department has provided you with a complete list of medications post discharge. Please inform your computer analyst/provider of your visit and for further instruction [...] (R10.9) Currently (Z34.90) UC - Abdominal Pain ([id number]) If you received any narcotics, sedation, or [...] for Disease Control and Prevention May 2014 [facility] Lactic Acidon 05-28-2024 Lactic Acid 9.1 mg/dL Normal 4.5-19.8 [facility] Comment on above: Performed By: #### 2 [id number] #### [facility] (DEFAULT) [address] [place] [address] 48825 UA Lfucc7cv 05-28-2024 UA Bacteria Trace Normal [facility] Comment on above: Order Comment: Urina lysis Microscopic order added on by [employer] Expert Rules system. Performed By: #### 5 [id number], [id number] #### [facility] (DEFAULT) [address] [place] [address] UA RBC None Seen [facility] Comment on above: Order Comment: Urina lysis Microscopic order added on by [employer] Rules system. Performed By: #### 5 [id number], [id number] #### [facility] (DEFAULT) [address] [place] [address] UA Squam Epi Moderate Normal [facility] Comment on above: Order Comment: Urina lysis Microscopic order added on by [employer] Rules system. Performed By: #### 5 2081270, [id number] #### [facility] (DEFAULT) [address] [place] [address] UA WBC 0-2 [facility] Comment on above: Order Comment: Urina lysis Microscopic order added on by [employer] Rules system. Performed By: #### 5 [id number], [id number] #### [facility] (DEFAULT) [address] [place] [address] UA w Culture if Ind Standard on 05-28-2024 Breakpoint UA [facility] Comment on above: Performed By: #### 5 [id number], [id number] #### [facility] (DEFAULT) [address] [place] [address] Color (U) Straw [facility] Comment on above: Performed By: #### 5 1852277, [id number] #### [facility] (DEFAULT) [address] [place] [address] Culture? Not Indicated Invalid Interpretation Code [facility] Comment on above: Result Comment: Resu lt created by rule GL_MAGR_ADD_UA_CULT Result created by rule GL_MAGR_ADD_UA_CULT Performed By: #### 5 [id number], [id number] #### [facility] (DEFAULT) [address] [place] [address] Glucose (U) [Mass/Vol] Negative Normal [facility] Comment on above: Performed By: #### 5 6486470, [id number] #### [facility] (DEFAULT) [address] [place] [address] Ketones Ql (U) Negative Normal [facility] Comment on above: Performed By: #### 5 5113929, [id number] #### [facility] (DEFAULT) [address] [place] [address] Micro? Indicated Invalid Interpretation Code [facility] Comment on above: Result Comment: Resu lt created by rule GL_MAGR_ADD_UA_MICRO Performed By: #### 5 [id number], [id number] #### [facility] (DEFAULT) [address] [place] [address] UA Bilirubin Negative Normal [facility] Comment on above: Performed By: #### 5 0277548, [id number] #### [facility] (DEFAULT) [address] [place] [address] UA Blood Negative Normal [facility] Comment on above: Performed By: #### 5 8148552, [id number] #### [facility] (DEFAULT) [address] [place] [address] 61789 UA Clarity SL CLOUDY Abnormal CLEAR [facility] Comment on above: Performed By: #### 5 6504769, [id number] #### [facility] (DEFAULT) [address] [place] [address] 41759 UA Leuk Est SMALL Abnormal NEGATIVE [facility] Comment on above: Performed By: #### 5 [id number], [id number] #### [facility] (DEFAULT) [address] [place] [address] 32908 UA Nitrite Negative Normal NEGATIVE [facility] Comment on above: Performed By: #### 5 9698363, [id number] #### [facility] (DEFAULT) [address] [place] [address] UA pH 6.0 Normal 5-8 [facility] Comment on above: Performed By: #### 5 3423340, [id number] #### [facility] (DEFAULT) [address] [place] [address] UA Protein Negative Normal NEGATIVE [facility] Comment on above: Performed By: #### 5 9511921, [id number] #### [facility] (DEFAULT) [address] [place] [address] 47049 UA Spec Grav 1.010 Normal 1.001-1.035 [facility] Comment on above: Performed By: #### 5 0705405, [id number] #### [facility] (DEFAULT) [address] [place] [address] 27856 UA Urobilinogen 0.2 mg/dL Normal 0.2-1.0 [facility] Comment on above: Performed By: #### 5 9010122, [id number] #### [facility] (DEFAULT) [address] [place] [address] 39189 Urine Source Clean Catch Normal [facility] Comment on above: Performed By: #### 5 [id number], [id number] #### [facility] (DEFAULT) [address] [place] [address] 07851 US 1st Trimesteron 05-28-2024 US 1st Trimester [...] Anthony Yeh MD 05/28/24 7:34 pm Technologist: [facility] US Transvaginalon 05-28-2024 US Transvaginal EXAM: US [...] Anthony Yeh MD 05/28/24 7:34 pm Technologist: [facility] Urgent Care Note- Provideron 05-28-2024 Urgent Care Note- Provider Patient: SHERLY ASTUDILLO Age: 24 years Sex: FEMALE : 2000 Associated Diagnoses: Abdominal pain, acute, left upper quadrant; Acute left flank pain; Currently Author: Spensre Fang Basic Information Time seen: Date & [...] History Medical history: Resolved Ankle fracture, left (38193563): Resolved. 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 Surgical history: Cholecystectomy (33228823).. Family history: Anxiety Father Sister Diabetes mellitus [...] Diagnosis Abdominal pain, acute, left upper quadrant (VLW90-YP R10.12, Discharge, Medical) Acute left flank pain (FZZ43-YJ R10.9, Discharge, Medical) Currently (AOU82-PU Z34.90, Discharge, Medical) Plan Condition: Stable, Guarded. [...] on: 05/28/2024 14:16 EDT] Spenser Fang Normal [facility] hCG Quantitativeon 4 hCG Quantitative 46351.0 mIU/mL High 0.0-0.6 [facility] Comment on above: Result Comment: Post -Menopausal Reference Range is: 0.1-11.6 mIU/mL Performed By: #### 1 5587217, 5751993, 2350105, [id number] ####[facility] (DEFAULT)[address] [place] [address] HCG ( test) Ql (U)o n 05-08-2024 Interpretation and review of laboratory results Abnormal [facility] Preg Test, Ur Positive [facility] Progress Noteson 04-24-2024 [employer] Authentication Interface Message Text Attestation signed by [...] [facility] PATIENT VISIT CHIEF COMPLAINT: Toothache and [place] Teeth HISTORY OF PRESENT ILLNESS: 24-year-old female [...] canal DIAGNOSIS: Abnormal tooth eruption (Primary Diagnosis) [289121] Impacted third molar tooth [609340] Caries, Impacted wisdom teeth, and Retained dental root ASSESSMENT: #1 Caries #16 Caries #17 and #32, Partial bony Impaction with pericoronitis PLAN: Surgical extractions #'s 17, 32, Extractions #'s 1, 16, and with local anesthesia Pavan Lee DMD, MD Normal [employer] Authentication Interface Message Text Normal [employer] Coding Summaryon 03-28-2024 Coding Summary HTMLBase 64 RbwhqevrZDw2bHq+PGhlYW Q+MK2FSYJsT59dcKInbR8g Q2JEGQhTDdtkCLLBTNwEKx TvohGzUU1kfVPzKNKw IC8+WW8wIZAmNijnjZPhx4 W9sNM3B13abu6gTFlvrGS1 OGKrMwUncbaqd7godRv6LI cuNmluOyBt ZFDvgV35DJT8uW44Gj66oW AeoGMhr7eucLh3TfGkAQUd PWU7dQvrQNahy4TrPIHnU3 3yhBCzi8S9 DFXmtVvwnODsQnAfdEN5hC 4bLXtqhgaai2oyrojmSgz9 pi60lPUjp9Z0eKY5D6Acdo E0RPRhcQIz PdintYMRaV3mnhpzy1bsvj uhMjKbDVDmARr8XLf8AVWt wRwcEvJbEV41BPJ9IXUzkl IoM9CbFWUi mPupRvN4h5Y8Pl2KC1BTQg wpS4JVUGJXZMxfiBN+PC90 gu81Y1WdAvyeCwm8HSNbFB S7kUL3yW6e BTBkHWzof6W3yBC7M1Nbid Sidz5mn7frKGHhHQknC85l dYVih8R3FNCtfMY9VVUojU uvHbLopY80 Oyc+GYMajSdco0ZqYstmx6 qvs0itjEt0SzpyTGYjpjVb sCtuDYP3y8RrHr4sRESokM V6rFM6vY0y KlKvSlC0CSriI521NmQlvF JjXatrD94mH3SsrEP+PHRy Ojq5EXIdmMvxZB6gT9FpNF RpbmctbGVm gIzoTQ2zMUErtypmCZVtdG 1oRZXgO4e2OeTnUkT2CIyh I7DjLCQsudwvCb67vV1wHw WrThT4RSgh V8VukqN9USLnpAVrKEolFW T6W12hd2R0TFKtOORvDJG5 pTQ8yH6fyVrglvluqIQrgX sgdmVydGlj SUmwEFbrG930UAImvBreOe NvZGluZyBEYXRlOiAgMDcv MjQvMjAyNDwvdGQ+PHRkIH V5wAbrGAIt zVLfLCltJv7oiSenuBnrHV 8vNOMkfzobIPImeA1zQLEs oUJziAjwAW1aEDEuefhkv1 16GvGcHVG4 ORMtdENkF8BpdC4xHeUrZV QfCSIzH3JwnDGuDWllH326 VZzkRrJ7LSVblkZuG7PuTJ FsaWduOiB0 w9U8Mj5Qd1LrwarmR2AwlE WcHpXvVgoqFLy0F6MrAhpg dHI+VD49LDYqVU99UTl8LC J5uCdtDPep PWAqM9JjjK5wEjClWPLyPA RkOyc+PHRhYmxlIHdpZHRo FLobHRTpHbSzuEtyOB5kPl 9yZGVyLWNv iAdewFLyGuGhe3pdZFUgHB keUK8pnJetF3GdsHU3FSTn q6f2If15O08qV2AskKR+PG VwiTW7dNN0 tE7nXlBrHiE3VPsaV271Mo WbdWVhInnxj7dmv0pgtHs5 NbE4SARxicDnfVogXRW2d0 DmZm48C62u IHdpZHRoPSIxNSUiIHZhbG uxfc6ywB5aMv6+PGNvbCB3 gNI5uH1kNiZaLwB4RPosJ4 49InRvcCIv Hrdfq8znc6echZb7YuKjNO RmdwOczXvrDBF8h1ZjZn41 N7UgfCqpw5HyHtg0sb94oW Kow8N0oRR4 M9QeKQWpwbcgpVMqdEkaNL 9tLGUstbenQSJkaX3iOYQu P8k0MyBeDzZ6VBvpB2Rjgl P8UINzxOEn RZMroZHSpY3yjikhh3wqfn otZyTbDVJsKWu3LHu7QPXo fSraNrXlZGC2PtW5JZR1iG QucM6qeYwk ovjwlZ8yHew+EAG6mYBxsL BJMP7bDsjzbMO+PHRkIHN0 tMflWDolBNHyaU6nGLBuZ6 o8HpTsBlP9 OLfjA2RsnvS5FGBiwXFzKG NdaCTFoB5iordex4khccxw FkUnHYPaGZf6WHc1RYBziC duOiBsZWZ0 MfN7OED3tCQoeS3nfDbees zxfT4qOyf+QmlydGggRGF0 BDv7O0UlSfq5CCEibYpmNW 0ncGFkZGlu Yf5ndNzzrMgwAG0sSWJlxe jmq093ZhUaj5zjDAToeVFm CEhrANW8A18kx4Q0VYEzCM YaTEJ5fTP8 bL0ltKchwqdxaJYapFkkjl MjwOhpIIehEVufP710DZMl yShzPiGnEFv1D9JzLil2CF EqiWxzHF8u dVXxPLbdCl3vjXotoAqpES 5fDAZthvrhf924EgSqd5ek MQPduGQmPAqvOIC6Q53zn9 P5NVPxLBEx TCY4aYU6iH0dePfjxcudtI VmdDsgdmVydGljYWwtYWxp D780AUNmjEhiAuZuxUg1B3 JdApp7IJNe lNfhDE8ymTThOLktNm8rpK fjtFrvBC6pWBLizisfi235 XoIkg1caJBHxrIZtODajZD E4U44zx6A0 DSVcFGNvQZJ2oLG9nW6eyD lnbjogbGVmdDsgdmVydGlj FMhmMTflG281QVNrhOqiUt BhdGllbnQg ZGvxAMx6I6XdPtihlLA+PC 38CCIsUO22nBAmeTIft8kr fAf6FoRtLYEnWWO5qVojHQ xhg4EmYKOe D12pdTHrs7P3TPWloOwkiZ UzBkJcgTS0iA9nNFcsnfgm u5ewoxiyBpfaz3sskd55fA 16X65nSZaz ZHRoPSIzMCUiIHZhbGlnbj 2gmZ9rLm8+EYVrlED5zKD9 gY8uBZNmFmF0KQkhE448Nh RvcCIvPjxj r7nbs9tijJy7BnD0HTVftg FmwCjcKDH4w6AdTb95X56t IHdpZHRoPSIyMCUiIHZhbG uplb5inI7f Ii8+ZGOppVW9mGO6pS4bMn XpEdW3EOqpR844PvGkxBXa OqryX54qN6WcxYS+PHRyPj v6NATaoWdk GA8ckRZxBHimVf2yWNM5Kj PbTtFoHFibA9KySRRwytrd gglqaXV0PBBnGDQjgF46Li 9udDogMTBw vWORsT6rpkwkd0kpskwxFy JzAQFtGGi8MTg8KVPyqSdl FqSgWTH7VoG8NPT3qRBemM 1hbGlnbjog tA4sX8RrFKNwnhwbOi83gF 0jVsSwDvW1LVcfDmr+Q1JB W7ZNCmHyLLSJFGWESzXuAW lDSEVMTEU8 S5BuVdp8IPLvpWerXN4tyU HuOXmtEa1cvAdxbMpaXT8u GRAdoctuEHJheY2wVSFopO NosBaoBC7w KDNxsdmgj798GoFjDWI0ZF UnkZKvV3ScpZ0nOaCvFOSv YGVmN3FhyEWxQFqoF728UU lgLgX3JPVa anRaP5CfTWWphStoSoR9a8 R8We1vNw1tAT7jFFu5LK86 RS01aMUip7F7oOB7S4NkAL Rpbmctcmln iCF9VPPmFFEemF88vXVgLC olDh4pu4O4e651GQRwNUPs vM23Ss6zhDvwOTOmbLQJuW 2dvbavr0dx reerCzMzCZMmRQc2FFk8AC AinBvqIuYwCQS7NgP9FUW5 iALvfO1wpUzuhezdxK4lLc c+MjYgWWVh spS5R4VjTyh7CIKntWwsAG 1xrTVkPEvwMn6bxGdesIlh WQ4qYPFdrltjECWrwR7dAB JvdHRvbTog UG2rYLGcfwgfc102QrAuYE Z5UQBuuFUxN2BnsI7eViOf PMXvEIRvS2ArwVRyAZonV6 04TRroHpP9 YCWtirQeX9VaFRDywWicNj E4h0X7Pm2NYF3URTF9W2Np Oox8FJWhcYhfIB5gtYMiTF mkJt8euYur bWddGJ1bBDVuqysmAZTqoG 9jRIFxmEKwuSelYZ1hFIKk vafvy869XwEoQSW0MOIjrR QqF7PvnJ1k RuMzPRZoNERyA3FzlCGcHB miF661RHfhAbN7CXZibfKt R1BqUHVviHxxPqJ4z7D8Ft 5PUDwvdGQ+ WM06gb87S1CnLhhpSlx3FE MxNMS0zNA3qJ5eOAYdCIbv u4O2nYH4F2HrglVzcs8mb3 xsYXBzZTog R60kvDAvd6O9YQUjlEP5HW YgcQoqUeTqmX50Jrd+PGNv jCkql0ItWjzue7gjh1gaiN w2MhQkKIUb ldQbbIsaPBB1y7YjSd60Q1 9sIHdpZHRoPSIzMCUiIHZh gJpkcw7lhS0zMg1+PGNvbC V6sQL4sN7n FrSeGtY2HYmqK567VxCtsK KoKivzj8irq8zmkVq8CfWv TEWpmhXkbYaiILY1t6WqAu 47V8NxdMul a5CvJos6ei00zWVbo9C2aK X7V0LbSKGerxjaoMMdbCmx UP6xZUUgcaltQXPfrE0gIW NaX7v9BzYr RxL6KYubA2WuccR7RGWwwY GyBYYxhXYEyL9sumtqr5gq bggfUpOoQUKpJZd7UMo1MY FsaWduOiBs IGO2UmQ9RXA5oWQghL5nuA fnkrkbgB6lCmz+XRr7x2qs pYFnCI5ngER3DB56AD73bZ Vye2F3jDM2 S2GqLZLynsadufvvxQF0XO CnBIYmzP36Zp9gkCwuXn4t YVOpXVC4QHIlpBUjL2LihU 9yOiAjMDAw PTIfO2EwjREtUQjfD865IV ftGyS6QIFxcsLfW5OpNQEb jOsfXcS4l4B9Yk5DNH39TI 33XS51wPBf z7Z2qNQ5V9HjBWScjzxzmo swmKL2MWPyCTXkdE38Zf7q jXpzDl2gAZIdYXF5NBOkvJ UjS0QieI8m WeUwZCChSHCcD6HlnJCeLA tdP077UJpbOgH0XUNqdsFk I6YeEXAroSazAdD5c5K7Cs 8KYa96HB79 OW28oNGar9J5gBK2I6AeUM MwpxhhchiqrPY3IUUkUYYs aX40Tx4nvOchMc5oNCKqLC W6QCNbzNGz M5ItaT2eYdOrRZUxGAOgT1 YvgZXiQFbpI297GLatSiY2 MNTmvdFiK9DrQLDpzNfxXt H0u3D9Jo4P LCnvdut3S9HjKtcfgXA+PC 46JTIdOV26gWWeuHChm8bs bLz2VxAkQQJcXXA1dBkgVT lpt4QpNKIz Y29 (more content not included)... Normal [facility] Progesterone LCon 03-15-2024 Progesterone LC 1.4 ng/mL Invalid Interpretation Code [facility] Comment on above: Result Comment: Foll icular phase 0.1 - 0.9 Luteal phase 1.8 - 23.9 Ovulation phase 0.1 - 12.0 First trimester 11.0 - 44.3 Second trimester 25.4 - 83.3 Third trimester 58.7 - 214.0 Postmenopausal 0.0 - 0.1 Performed At: [address] [id number] Sarah Beal PhD Ph:[id number] Performed By: #### 9 [id number] #### [facility] (DEFAULT) [address] [place] [address] Provider Orderson 03-14-2024 Provider Orders [id number] 03 [id number]#1.[address] [place] [address] Coding Summaryon 02-20-2024 Coding Summary HTMLBase 64 GexjavohQWn7qFq+PGhlYW Q+ZY1PUZMkE37joDEmvT5o F1FDFSaEOqebQDHLJMfEXx OexjMrTI5ilCPmQMWe IC8+TC1dPCFzFaerfAZmt3 L7lJL3W30gff2uFSgagMD6 KTCyXfLafnwfo0uswXs3NM cuNmluOyBt NIOdhL47NJT5kP24Ac45gV MakMYyz8ftwHq8XvXaPQCy ZCP4xMsuHWyae1TiTTPtI0 3imRWfz1C4 BYJbfLmumQVnLdKdlNX1rW 9fDPyylatgw5qovrlyCsp0 mf55oIWoh0G6mON2C3Ehcr I9WSWvgQKb OmifbXQQsC2kszzey2lctn ipTzXvSUWhOKw5LBg0EHRu uLeuTtQaVV54VSD7OOZigp BjJ6YiNYOs xNoeZqY9r6B3Rw3UA4JLYs byK0OHNJETVBbjsFQ+PC90 ti84Q2KxByeuQew7VXEgCU X7qHH5gY4r SSBrQKoua5E4eVN3E8Fnmi Fvbq4ls0qhZQTtNQhaF01x pSZoa3G3FDYspTH0BBPijQ ksYaAfiH87 Oyc+XIAraThee7KxCxnio6 oyg5fdwFj5CgidEHMxvaZf lUueJMU0q3IjRe6lJACmlY Y3qLF0gX4p CxPjJlA6XGnyY914IfGiaS DuGjybW78sP2FrbMC+PHRy Ble7JNHweEoqRP2xJ9DzNQ RpbmctbGVm eIooKL4aNKWxugldKXIlsO 2yQFEzK3u9DaTzDuB8IFpb N2PfTSVupfmaLd72dJ9hVz VoViJ6DKma W6LhzxC8SBZnaYEeTZulPE O9S08qq4Z8CGUmIVUwBXK2 eGG2fX3vrKhugnvvjSBuuS sgdmVydGlj RJbbNOytQ810ACOclIofQr NvZGluZyBEYXRlOiAgMDYv MTcvMjAyNDwvdGQ+PHRkIH O5yQesVIDy kQKfHTjyYf0mxYdzcEtoNX 0iFHFdygqrLVDwuA1sPCWo oSWqrEslTD8uZSPjbxvjf8 10DsSoSPT2 BHJkrYPyF1KtsP6gQjYfYE KoQTIdH9FinHMzCAriR400 RMxyLhK2BXVelaQmN7ZfZC FsaWduOiB0 g5T9Vx6Yl0ExgnsqH3ThuO IrJhLlSwajPVk2C6MzVgqs dHI+XY16FUPoYA78CEf0LQ E4bEklQVrq IGChF9PdmB9aPyLwEETgJH RkOyc+PHRhYmxlIHdpZHRo HDvhGDFkTnQssMxyUZ8vOd 9yZGVyLWNv tVhuwRBxEiRoa6ayJEMoSA lwHP0bcRizO9ThfGW8KDGi h8w9Ip62R49xL5JsgXW+PG WnhHM1xDU1 hJ1lCvLiOnH1CRxrB587Qt QeyGZjEcdol2uxb0xgvWm1 OzX0BOGtsuRxeNbqTJD9s5 DeLm48C03x IHdpZHRoPSIxNSUiIHZhbG jrhu4quN6hPj1+PGNvbCB3 bDF0nR6sIeIcGyC5ZCidO9 49InRvcCIv Wrbgb9gzd5gflKh9ZjAoUT UbilUwnSpeDBF7u9JoLr32 Q4FvaJcef2UgZyz8ni28xH Pep8H7bLQ9 T3FgJBGkpvnovPIubSnwZC 7vADSidkhxLKMywD5nSWKm P9o0GtGxKyQ5SDzbW5Cqgp I2UHSgbATv TBAspRBCxN2rhgxkj5aufz xeTxSdQBLrBBm6BSg2YYHl tOggGfXdZZB2RbA3QSC8kM PbxC8juKhn btatdN4yDgg+NUO8dUGehG TTGV4xLejtkGX+PHRkIHN0 pUrbHRzfDLDkzZ0gJGDkA8 s4KpYsXdE7 ONugK4GhcdN2NSJthIRvZA OdtXYZjR1nsxjcw8syqags NlVsOKXbIAk1ZUq2PAMjyL duOiBsZWZ0 FfB7JNO8eNLrxZ5uvYlbsn wamS0dRlr+QmlydGggRGF0 QJu6L4RdJsb4PFQuiOiwOC 0ncGFkZGlu Zo6weJdipPrkXA7gTYDdkv otp975WqXxi7oaHLUchQDe EDtrDLT6C20rf5G5SLWhOM PuKWX8qRA6 oI3gzLthxfyhsDNvqBriek WdjMifNBfdWYbjV465MLDf pHrvRxHpABw7Z7YkUdc1PB UbtTofEO0t uHYlFSneFd3hwAigoDlsLI 2aVWUoraifw427HjQru9ud GHPpcEBmIUloOCY1Y78rj0 M3EJIbUWVh BWS0nRR1bN6kqAbocmjiaE VmdDsgdmVydGljYWwtYWxp V224OHRrhEivZyXjkTa4W5 XjEkq8HBLp bYpgHV0wpJLrJOagWe8koX wzlRbrXQ3lSNHhesmej472 LfBmv0vtYGKbeORdVEgtPJ Z5H93tg0G4 MUUgTHQmPAA3vIJ6xA1bvK lnbjogbGVmdDsgdmVydGlj DJfgEUkpS228NNUmpDxgSx BhdGllbnQg CUysFTi3T5UiGzcymXF+PC 96CABcYK77aUTicHEwl9eo lJi2GbZtITSdWCT0bAalJE kgw7OmOBJd T03jlLXat3P1FPBejXfxlQ FmJfKsuVJ7tU1kBBdlyrqz o0ioeoanReoyq2gwhf00mQ 13S38cGTcx ZHRoPSIzMCUiIHZhbGlnbj 8znP2yDm5+DUOfpDS2mYS9 dT6jLMTwQuM3GFoaN165Np RvcCIvPjxj w2loc2tesXa6KhH8BINqly GryNuhBQL4y6AdYv62W16l IHdpZHRoPSIyMCUiIHZhbG uhia6vyA2v Ii8+INLtuVS4fIV4yS3tXm UdNiL2SQvpR620DaHeoQPs VeiaK92sE9HzvXD+PHRyPj i9OPXsuOzh FJ4fxMNoVLnuTh0oQHF0Vb MdYuToTUblT0PkYTMmiwxm ppxzjEV8DTTdTTXtuU85Cx 9udDogMTBw rSCMxV2koabob5xmbvqcEb HvJLBrQKk8LQy3SWXuhNqm YyWuKEO9SkF1LDG0uOZboI 1hbGlnbjog zN8dX0ApIWKqoaggRc51jD 1xCwLqPtH1DFsgGip+Q1JB P3NLYuWnYPCCYNJHRsDuFO lDSEVMTEU8 Y2XxKlf7ULDeeHcvYY9dxN IiJWhqRx0ouGcdqTcyIT2c FDRganwaCEGomC3xLLFknL QixKayFJ3e OBTvlsycb870CxMxLAQ7LI EaxPTpU1BukH9bNbHmHMJh BHWkL8HlfVIjUHotP101SZ tbLmH0QWJr pmIkN1UwXRBbkWoiGiE0c0 L3Ue5dVp2pDC1kETp3ZC24 MQ70pUAqx9I9aXE8C0VfZL Rpbmctcmln gNI0XEKiVODthG51qLSwYJ apQt6zo4U5d216VXJuZUWk rG47Ca9klPlxOICjjNITlX 6kxukqg6xt wduoJaNzLCStBUm1IAa6DX BfbDdiNmAiFLM2CnY1ZHR8 zVGvhE8pwUamexbeuP4uYj c+MjUgWWVh voW0B7RsLqg1WFTgbCugXC 0bbEYdPCwkZx1axVgecCrq BM2rLAXbqnerOELrlS2tVD JvdHRvbTog MO6tTIJpmtoyv864QaLtAX D1QJBprHLdH9MliC9xAuWo FBQaSARpO0RgzUHfBXslH0 24XCyuXuZ2 RTRrcmLqC0PoSJJmmXesZi E7l1U1Tf8GVL9PZDW8J4Bx Zfs5DJQwaDxfRN1hlHQcXE daSr3taNwo eDopZK0fGLTgoxcjJGNwdR 5eAMVfbFIsxIncRT1tIOXw xjcis368GiDpJXM8TRNneS KzN9NwmI5j TmUzJMQnDMHaI9NvtYNoIP asX460JTpqAlH1FBCklcXe G6AmNSDqoSmsKyU4z8Y8Bx 5PUDwvdGQ+ SM64xh04E3AePemtFcg0NY PdSFT9oQL0rE8lTYUoZSsh r8E9bDV0S0EhwjZdyh2kc9 xsYXBzZTog Y90kgKZtr0J5WIOduYH5YU JckLhuBaVbzY83Sel+PGNv gSuem5KgSixgx7afk1gfwJ j6FaRlDSSo zlQvmLcyLAX6p4QtGu65B2 9sIHdpZHRoPSIzMCUiIHZh xVfelc6vwO3uWl8+PGNvbC W0fSF0cT1q CxHkDpC3EEymE085JqCbnA GyEcqpj3vrr7fohJb4UdCn LDCgsjDjgBxiXJJ6w3AvKd 86E7AzmBkv f7JoPme8kp63sEVvs9W8xF Z6A5GvLASjwbbeuUWjqCoq LU7zQLZpexeaXLWzpS3jDY ZeL7m3FaRl LhD3VPnrZ0YnkkA5CKBzvX FdPYDscTEUoS9qsfdwh1xl exzaEwThUEKrXLf4ECk0RZ FsaWduOiBs QWJ5YcO8VFR8oOIekD7vnF tzxnpqjX9mXig+NVy9t6zc fBFzBN5yjDV6DX49VJ15gF Hqu2L0pFY4 Q1IoTPOzghgfhbencPJ0SY ZbVBBmmP35Co9pgSdjYu7e VVVgSLP3KYSrbOUfY0VfmV 9yOiAjMDAw WROuR9UihDSqXRuhT058FS jzOvQ5OBQdvxJuM3NpTMNk bFwpQcC9u1D1Wc1ITS46JD 87YG47hIMl w9U1gBD0Y8LvJKHmuwvgag dtlJH9EPGkSTAeyB06Ge4x cJpoAu9rRIUqMTL0PBFhtB KnG7FfwE6i QzTyENWlZLMaU3IscUSbRU uyQ430KUshJoN9WLUvqqIy T4HmGLDmkLtgIdM2z7O2Rx 3YKn03UI08 VE31gWNmq1C9rCD7S7KcFD KmzrsoqydamUT3OKNzGGKq jX59Wp8njVhlEk9kRKDhGB A4FRGedQMi Y1QfcW7kTpNnFVUxZVZhH9 HsjAYoSFbpQ500FBwiSbJ2 XKAyrxXrP6CzJBAevOffAa Y8n2K3Vt8I OMgtird4O3CbTeglhTA+PC 47ODNmDT75gRFcfZNqp6pj oYd6YfFoLVKdPDI0yDijYC ucl7FcXXUb Y29 (more content not included)... [facility] Progesterone LCon 02-15-2024 Progesterone LC 18.8 ng/mL Invalid Interpretation Code [facility] Comment on above: Result Comment: Foll icular phase 0.1 - 0.9 Luteal phase 1.8 - 23.9 Ovulation phase 0.1 - 12.0 First trimester 11.0 - 44.3 Second trimester 25.4 - 83.3 Third trimester 58.7 - 214.0 Postmenopausal 0.0 - 0.1 Performed At: [facility] [id number] Sarah Beal PhD Ph:[id number] Performed By: #### 5 [id number] #### [facility] (DEFAULT) [address] [place] [address] Provider Orderson 02-14-2024 Provider Orders [id number] 21 [id number]#1.0 0[facility] Coding Summaryon 01-19-2024 Coding Summary HTMLBase 64 HsqpxpdiWLl0oQp+PGhlYW Q+GL2OMEXyT72woVFeeP6n F6YSRJcZWaasPQVPRSgDTv BsirHcXB5afTUjOBZf IC8+OM1nPDMfBvlcbGEqv5 G7yST3A47rgn8hRMksfWO2 RGIhLuFyujcxx0acfBi2PS cuNmluOyBt SEJguW95RFF4nI17Ol18kH CsaEPhl0ijlZx6WsPhMQBa FWE3zApkYQmol9TeRUYcG7 3ssWYpo9U9 AKDnyCpjbJUyYuTtjJY0eH 7oFNgtrhdqn3idpjmwVak5 ce17iJMaa6L7sTI7C6Ocbz M5FANlpGDl EasirIJVfT4eavarw7lpie fsLaQbHBWkSVa3NXg7QMOm hNomAzFjGQ64BQV9WRCfqm YpX9PlCTMs xDayUcI9k8A2Pz1PF0DYBx nwL0BMFJXIBFkxgDC+PC90 jw00W8PoLqcuZom8PZGpHF D0bWX1hR3f HIAuVCptf6K1xZG5R1Dmin Kugr9dq5bvDBAxOEgqB68m hNQbd8S5ALWmjUE3KZCpzH laWvNiiW74 Oyc+LBXnlSqzq9WdSwrpj3 unj5rqmMp7CcjmLHPcncYs hMczPEC8x7ObIg8aBJYoxI N6sFK4nZ9z EoSlFzS7BYjvK663OyGccA UhWjwzU73kD6WxjYC+PHRy Xlc1YEEyhEzcSL8qD9NvSW RpbmctbGVm rInsYH1mJODpuxteUHNtdB 3rWIDoB2n4MpYuHgY0MWbq F1RjGIZdfskbRd86cJ1nEq MnDpI7SJbr D6CaydC4ZKUhjGMuDBeoTW N9S68wc1F7HZHwIIXmNOX2 fQV9aJ0daYoamhlhvVGsqX sgdmVydGlj LLszCCihY595HBNnpGumXd NvZGluZyBEYXRlOiAgMDUv MTYvMjAyNDwvdGQ+PHRkIH D7bJunNNXr yBAvBDmsRz4swAwfwBtlRF 0yICQngnfwLHInrW8eNEDr uUNmdIaiFX6bXOItuuktj9 48LdQyTNW5 GWBliNSrW4KlkM3pDnDdAC LqYWIbL0YbtKUwCElyY946 MKsxIlW5JDDfhhFcT0GhUJ FsaWduOiB0 e6B2Cg7Js1ZpptegP5OgbW LdRsPlMhxkEGl2U4MaSudg dHI+QY43VKAaLM24CWv7JN K6rEdrHZfv SWWbM9RaaR2uRyYqMXXtSD RkOyc+PHRhYmxlIHdpZHRo TYyjPDRlUvIumStxWI2oDs 9yZGVyLWNv lEbywLNkWnCfo8ecSUDmCG urXE2vyWlkU2GlgVX8WWDz i8r4Cg82B51iA8MacJZ+PG UhvCR4sMJ6 tG3jNiHmAhP6JHxlI814Ap XoyEQxDpysx9stf1bfmSr9 CzA8NUGqryBsyHslXGT3x9 BiEc49W04y IHdpZHRoPSIxNSUiIHZhbG blpj9wyA4wUd6+PGNvbCB3 lZX6mU5eBfEuTeX1PEvpN1 49InRvcCIv Lhbeg0cwq8qaxTv3OaRkHC TtjdLvtRhbLGL4u0OtVq38 K2NudVtyn6RdOkh6bb59cG Zjd7T4vZO6 K2AcUCJtjyzflPBiuIzvSS 8zUGOehgbqVWLmaB7zSJJt F4o7QiGmDpU5USqfI3Tsrt D2LOJqzEHk QDLmwWVDnX8wqiigy3nlcu ypIlOcOTNxATt7BPg4LWGx bYevBaMcIUE6BuV0EZE5lJ YhfQ3qwGva xmhwiO9kMoe+BXL6yWSjzS USZX0mIkvykOC+PHRkIHN0 xOmuXJeiFXRklH9cWSLpM2 h3GjBaBhR5 TAahI3JocxZ2UPWrlMYoHT FxyOIAwZ9evarnk1qtiyuo ZxXoHWAgCDz6LIj3RDEedP duOiBsZWZ0 ZjH9WPR7pAIdpE5jrMtcjb ypcL1uTiv+QmlydGggRGF0 KYd0Q3TdPjw1PVFhkNrrHT 0ncGFkZGlu Ob8bmWpjfJeeLO7lUFAphw eke159MsXbp3pjGCNcbZRj QSxdIRE3O88nf7K3NDXlYV IyJOX2lLY3 fU1jdUfsqhewvYAmxRmttq GosSfmFWhtYOefD998IZJh qFqlKjRkLFv3J0PyYtv7CL QisSsvYJ3l qWLxHLtqBk4lmPswfJoiYC 7mMCVuaximo993XsWob6vw PCXxgXElHUlyYBB2J35pd1 Q8CGXtULNe QBG8tQT9vR2ueNefmsnepL VmdDsgdmVydGljYWwtYWxp M466ZTDxeFpsMrOfeXh1P4 AfXmy8JBJk qHduHH7nsUEmWEhqYv6yqD jfiXmmKO4tLWBesdcpe289 WbUeq1znWATrlIPaTHeyLW U9R39yk7E1 RDDlRHOpWVI5zOO6lN2knI lnbjogbGVmdDsgdmVydGlj DQrbLKpnW258QLTymOmaOl BhdGllbnQg BIsfZKo7V8MiPsdadJU+PC 04LQMmXL59hNZysPLlr7on eHg3DbZoROBlCNF7eGvnKL eba8YfPNUb Y53wwOUva3G6HABqeTmzyW GqBjXnsPF3pE6mZGbjdodf d0gtmemzMksdr7vmga87nV 13Z08kUFia ZHRoPSIzMCUiIHZhbGlnbj 9xhN9pKf2+ZJAjdIX2qHF3 vY5mEZTwXwX5LCutQ711Bp RvcCIvPjxj t9xoe5ljdAp0TrO2AXStzu ZqgUbjZLK1h6OkAo70U30k IHdpZHRoPSIyMCUiIHZhbG rbcl6knH1t Ii8+XATqgZB8rDN7wU2wEt FfYbG4YEfzT043ZbEqoNZp NfbaS28mU9BnoFW+PHRyPj a2OPTkpBqc AH5qdOQqYKguYl2rHPB0Bc EdBmQsGRkxE9IpDJAfuijg avvtoMW6KRQyTKHyyI71It 9udDogMTBw wOEYtM4haoeio9hiktchWw XtTLBqGSw6DRd3OFTwrSft HbPwVKG2XaY0XNV8sBWclV 1hbGlnbjog vI0kE8DrQXAmpnsiIx59tD 3rLhOcNtI8HZjaIlz+Q1JB Y1GOMqOzXPSPJNZPYtGiGE lDSEVMTEU8 G5UdEvl3BTVbbBssZE9xwP OvWVzoZy3zhVkujJgvLZ9r KIFimmvvZCDrmA6rUIDroM XmpBujWW8x XRZoevbtw501YkJoBMY9WN OmsJWhI8MnmG2xErZrGFYk XVNsT4WgtGVmQNmlH053UY qfLcC1UJVc dlHaI8QtIZGepHhlQdS0e3 L2Ys4uNy2mUG9sTSd6XE52 IU95rXIgy8L6wFL6K7HqIG Rpbmctcmln rCA6FESjRHQvcM55gSHwOS jkGq5ar0D6f731SDGuGDYq gX35Gf4gcMvvIUGvsDDEmQ 8hlziiu8wc vpdeCfLpHTRzECw5EWg0ET RyfJtnPtIrNQJ8MeP7LFF0 oCBygV7weOcaopmljP6uUr c+MjUgWWVh xgK4H8HhXtr6TQOnkIprLN 5kzHWfARuiYm4xaIsoiTtv SK1iEYIziziwQZPitA2vTH JvdHRvbTog ND8sNOTnmugbx194XmEdTF D5ATJfaWQrF7PhnV8pGnDr QDStFQEhT2ZdfUPiYNxkU4 06XTckGmM8 QRGiylWyW4JcJTVoiDqcMc R5s9N8Gd1UZE9ZCYE9U4Iy Jdl5BDDzqPgyEY2ocXZtMK ocIp6tvDje dRfbQX2oGAOtsiauGAXikI 6iRMZuoGRszOfkLZ2mXZJl vhbpd757GqSiVDK7TTCakO JzB5HwcN7v BaFwSRPkQQZuS8LzaOYlQN owT047KVkeNqR3AAIncrZt H8McOPZzcHnzHcQ8f6P3Dl 5PUDwvdGQ+ LS04hb62O7CwOukbPkk7UD HcQDN5wIG7aA6pLTHeRAoj q9V0bAG0Y1AdmtAaon3iv9 xsYXBzZTog R51quJBgb3E1TCMfkBP8CM BtxJulFxEjaA67Hqw+PGNv fKbgv9UrGmuiu3tln3tjrW j7HhCsRGPr cfPleKgnDAL3r4XiZi86U0 9sIHdpZHRoPSIzMCUiIHZh pHaulu9maS1fKm4+PGNvbC J7lBM1wV4w OhReUmT2ZTzoY477EdVxkE ZwRwhki3zxk4adhPs2NvOl FCLkhsHvpHftUDA6x3BiLa 29W6LxxAvs m3MeIwy8nn70zCCkv6A0rU F3S6RhOJEhcjofeFFgvEmq OD0hRWHmdtprAKOfpN3dZR EgF0d9CjPm XuF5LVdiB2BgwhC6KRPjsI OdVSTxeXCJqD5wfcxid8lt xxgfDoJrLMLbIKs9LWq9YS FsaWduOiBs KWU4OkP6RHV1bZZzmO3ctJ mtqfxvfL7zMpl+IPn7m5hg sNZwJL0wgYO1ED94RH65bW Vli6O7xQY7 T9GpIZVafpewgrsvyHH1YY OcGMYidW66Fg7tsPjgTt2s KPUzKMW6KWXmyZDzP2BhpR 9yOiAjMDAw OFQsK4PpxSAfMVlsB353WY mvCbF0HAKemsNdH7BxENAb tDlwFqA3n6I7Xn8IKY20JK 35ZK00iPYi e7I7aER1K3WdZYHnhlqwvh tcwTK6ZNLbNFVcxG01Cv6w rDkaFi7fPCQaCZR2WDIscQ AnA8NdhC8o StCnIXEkKDBvB5EgpQHdEZ rgZ243YHqbYaE2AJMvnjCj Q3UvRNOgtXvfTzJ4b6V6Re 0LIk01BI85 UC69oOGvx1N8jON3F1BoAM PydxxgjkujjWJ3RRFtBDKh hB79Rj8biDsdTl3eRFRkIO X7VRGjnDSz A2GmcL0dOsNtXNTbDJReD8 HwpGNpMXahP294ZEhdWqK6 IXMqzdSwS4ZaAIJibFejUk I5a0N7Zl6J NUmwtgt3R5WiKxphpXD+PC 90OTWfKS63cTRzvQTlu7tx bJj2WoZmDAQrDCB1gXhdML xtz6PxUSYh Y29 (more content not included)... Normal [facility] Progesterone LCon 01-18-2024 Progesterone LC 14.5 ng/mL Invalid Interpretation Code [facility] Comment on above: Result Comment: Foll icular phase 0.1 - 0.9 Luteal phase 1.8 - 23.9 Ovulation phase 0.1 - 12.0 First trimester 11.0 - 44.3 Second trimester 25.4 - 83.3 Third trimester 58.7 - 214.0 Postmenopausal 0.0 - 0.1 Performed At: [address] [id number] Sarah Beal PhD Ph:[phone] Performed By: #### [id number] #### [facility] ([facility]) [address] [place] [address] Provider Orderson 01-17-2024 Provider Orders [id number]#1. 00OTGTIFF [facility] Coding Summaryon 12-21-2023 [facility] RhlikjefBEp1rLm+PGhlYW Q+NH3OSOSeC75eeJJegO9w M9LPSWdZDpkgVPJHSKbMLw EagnJeQX7ufNYrYFLi IC8+RX7kRUXgNxdlzZTdo2 X4wRX8F19ftz6xDXaqdZC0 AGHhHqAlkscbo0hwoEa4GH cuNmluOyBt HIXcaX68KJH5rZ91Lu67iT DboYPgo3urdFy4GuWkFPEh IOZ2oPbiBYspm2FpBFJdS9 2rgNSvy3V1 LPRgvGjgwWElZlNqaMF2nW 8nRLpqyooqx5stwiceQmk1 rn37iHRmq5T9bDS6P1Nfpr N5ZAOwkRUd ZjlymMVGrN7txkvib0qjpc ofAdWxFXPvAXe5IBs5PLPp sKwpIfThZM41DIP3WYTjmz DgG6LaKLRx eXvtEqW1g9X8Js1GL8XAMs prS2WNJFLLIXnrvDJ+PC90 zo21D3KxYrxvFzc1UZAwKR K0wDS8wS3i LHEbGLhav5N0sGX6G0Kevf Vugt2ut9chHWCsPMzgH26s gRThx2Y5XZZnoIY0KSIvhU cnNjTamU21 Oyc+CKAzfXfdm9FaJivab7 hpg7iceKr1PncaHQZdvqIx hOupVQU5c9XbNx4yWZRbjY U0zEQ2lU5l FrTzTkT4WIjgG471EqBahN RfDvhbL49zG7OgiSL+PHRy Epb9ZKLzsHxcSI0gB4VwPT RpbmctbGVm zVkwJT5nKCBdanhpTIExdB 7zDEDiN0f1IgJaXeZ5HUsv O5McGRVobvdvOc73rN3aHt QvTaZ2QSow Y7XhkaS8UGPdwRXaFAgfGS D9G53pg8E4UTZoETSgLWL1 rUU8vP1csRexzlnlaTHdeU sgdmVydGlj GJdrBAxqA773HKHdtSmqVm NvZGluZyBEYXRlOiAgMDQv MTcvMjAyNDwvdGQ+PHRkIH Q5rCwoLKIb zMWrUWexNz2sqRhgyXpqJD 4hJAXxfzzjNFNmyH0nBBHc xLWuzAcsBR0oQPNoogpqc3 33GyDvOSM0 WTMweBXmT6KxoT2iDxHjEJ JnFMPaH9JwvKWaRFnoJ013 ROhoMdA1PGVefqBwK9YdHH FsaWduOiB0 w1Y4Jm0Cf4VryfjcF4DngJ GpOxBhRsygZEw3P5VdHcxk dHI+AL64CTDjUP71OXl7WE Z9hQdmFLoo KQLhL0RsqH4jVxBeQFAbUP RkOyc+PHRhYmxlIHdpZHRo AMmsOBHaZoAopMgpOJ1eBd 9yZGVyLWNv eYibhINeGrCzo1leJYVlUQ dxJL8lsHkdF3QpkIX2REAg p8n1Zo16P33jA7JicYL+PG FscDP3pLC2 tQ2iNnGwSnJ2UNqnX651Cr RakETdIllgp3iqn7xmyYg6 DfZ1KYLojbHvdCbrLVR9i3 AwOc30K07a IHdpZHRoPSIxNSUiIHZhbG larb5alO6zOb9+PGNvbCB3 iEX4mN5ySnAzFcE2ALppH8 49InRvcCIv Ediui8tcj4jsgIo2ZjQvBT LbueUqxTxmHHY8w8ZyXa93 L5XceEiak4OqHjc9pr02pQ Yor7F1gON2 T8XeTZTnldnlcITlnRcjJA 9dIOVkncmkAQPgvU5eOEEw P8p7QzCiZhK3ZZgtA6Hbyj V4NFGgrWSx HAHxwVFWdW7syiioo4adxb miBzNxSCWeMXh5BRa8ARFb qAjeAiEbYWG1SuZ0ESO5pY HxnJ8rpRdu ghklrG6jOyl+HRH8gOMjpA PGUZ1aKigmvKJ+PHRkIHN0 wGcxHCbwCRPrdI2jLEQkU2 l6TbEuErZ0 TAodV1XkniY2JCCghHKsSA FptEDZpV1lkujoc3peqvvx ErGtXXXkZEf0TLw2AOCdnW duOiBsZWZ0 IzV6SXO1lBXpbQ4xoBkrda dlzB2tStv+QmlydGggRGF0 NSi7A0UdLzn6FLHcbLebSP 0ncGFkZGlu Te6qgYfluQlpSC9xPJUhbs dce905BqEva2brGUFugUPm YQvwXMV6M19iu5X5HNJxTK HxTGO8eEW9 jN7cjMjrznbteLTlkFnduh YilZchGZlrLPkiV369GMNe bBqzBeGsYPv9E0TmEqz5XS OwfJqrQY5d zTQvRIlpJh2cuPcnaDptUT 1wLZEfeulbr560XdDqi6ve QCAqsHQlFFlkLTU6G67je8 A1ZZEcOUNq LIP8kXZ5xJ0ykOtnectkmS VmdDsgdmVydGljYWwtYWxp T414FHNjiBiuBnJilIv2K4 EuWzb0LOKt xIbtSI2onTSjYFzoYt2unG wckTuhMF1gPJPmhkjni774 ZqUjl8fvPVFjtYBpKHtjQX O3J52ga8C6 AXOrNPImEWU7rXD6qK5lxE lnbjogbGVmdDsgdmVydGlj NPlcPVnfH897INRfoRevBz BhdGllbnQg LNrsJAs8K4HvYeucjMN+PC 01ZPPyXA09pAVpyVHwg0hx bEo4JmWnQBJgLRX2wHdmHF snb5XbNNCn L83wfDJub0B4SYHldWjbzV PsHdEfhWC7tQ7kBYyqxldi k6nrksouLctzb7rpri23lP 15B30vOCye ZHRoPSIzMCUiIHZhbGlnbj 5lpN4dKs9+RRIwsIX3uSJ3 fV2wFUTpGdQ6LFdgW728Nl RvcCIvPjxj i9wpr1wirAo6GpZ5NCBhju UxxPwhDXG2r8KxPx04B37w IHdpZHRoPSIyMCUiIHZhbG obey8quU2i Ii8+FSCrjAF0dXR0nI4sVl XeVbX3XZlgN640CeNccTFg QhriE21cV1XvkNH+PHRyPj j7LBNkkGcx WZ2caCNsEAtaLf9iXEG2Rn CnDzPuZOgwS8OtOKJjskqj aahqbIZ0CXBbJBDeaH06Ue 9udDogMTBw vNGWjY1rpcvcj3dzbtjoJj WoTUBwQGd7YSh8VKVdqBtz QlVsNWS8KmT3NNQ2xTMqjP 1hbGlnbjog vM9xT2JfVIEavcngRi43nC 9wHmBqQtF9PYgoUkt+Q1JB Q0PZFiJeFZVAJWYIJcVfOF lDSEVMTEU8 T1GtHmm4EUFngCqsRF5saV GoRRkjEr1jeDvpnLvoZM0f SPCtdphgLUIyvI8vOWHlvU OxcArzHW2c YLUeevbnn770UpNlSXP2NJ BcvEUsK3MdyU4yUnVtHMNs HDCmS3GqkEZvZUhqS814GG tbJvG7ZBSa syJsQ9UwKPWohXbqGvV4c0 X7Iz9aLd6kKA7wWVt5QK05 OB36nOXqt4E9mZN6D3OmON Rpbmctcmln pJM4EOZeTDNbwY33pWOnIU oiGi1hx0Q7p287GIPrOPLq dQ49Ga6urFuwEPPacVXQoK 5lqdidv8bo ftyyQxJdQDEkYZi4LQz1PG KcxOkaLrHoLFK9WxY2QJP3 oODijO1ycXwheqwjkX2uCu c+MjUgWWVh paP9G4XeYie8LXWzsPmwVD 7oeIPvDLgzBm9gyUxjjGvw MT5jSXZaoveiIYIleS8bFY JvdHRvbTog NA1sOCLtxxjzl065JkPoLT J5GWPhmWYtT1MbeK8nZoQe MHEcUOSuJ4JnoGMzATswS6 55IHwdIqE1 GNYcyeIoD9IaSYEofHeuQd R6h3Y1Ox7QAP8OMID5D1Nx Fqv9JKLwrBzlYJ5fmGTjGK qxDd6nlBgn tZeuOU4oQJAiuwhwPMGveD 2zRDStmYHysNkiLF3jUYTg mtaff430CrItGZU6PELspK XsO2NveJ4f RyPmRCLfLEUjD2SgtHQrQC fzG090TWfoCcL9LZVrvfXi L5WeSWJfiNcrJsP3b1W6Xj 5PUDwvdGQ+ BM43aq60T9IrBtxxXgs5IY PmEJT3eJM8hK2gASCjIFim h0N7uTM8H4MxwpYfvf6py4 xsYXBzZTog B65ttTLtr0Q2HRJwfKH5UT WofLznEsUjeZ08Nwb+PGNv cUuzn6QyZwlyx3txs4ldrB j6CwUaIGQr pjMypEzsWSY7h1OaEp55W2 9sIHdpZHRoPSIzMCUiIHZh dSvobc3gfS2aTd8+PGNvbC P7vGW6rI5x OxSjNeL7ERzgS094NhZcjN NbKhhwz9opb0vigXk5NkAi JICgbbPuuApyQCB1t9OlZf 45J9MjtRqd y1NnRwf1ox49qSDti5J7uT C0F7GvSZLrbbookKGfjMzy PG8gJOTymtcuYDPizI9sWE GuC5n1RmRj IxE3LApyF4EvozS7NWDnuP NiCMDtqTBTbA2pzdlbd3dc hnfpDzZxTBOhNIt6WYv9YD FsaWduOiBs AWZ9PlI0KGV9bHBfyD6ykR xbgkzgpK4nGrh+FLs0m8tu gBBhCF1iqFG7OT96IY06fM Zin6W2gJJ3 J8PxRQGuyhsphcjbeOG8PE BgXZXfyT78Kj7vzAonQh4l AOAmGLA2MURvaIMaE0RjoL 9yOiAjMDAw QJJgR3KfeYVnJBwtD055DG daNaO7RDJfxsZuT9TdIYAv gIfaSfC1l9E9Lz3JNO42VB 64TB54gZYh c3G2jRD6E2QkOAAozspset eiuMJ7DYKgDTSayX40Qw9c pTljEb2zNWHwYLV9KCLksA TsP5AsrV3n VjLjVWDxZOJeX3AvuQGnVS kfS724IDcuEbL0OLEdnqZp M2StEEOjzXwbEeW4p3T3Yx 5QNm37YK25 DT08qOZgx1N8pYU8C6LzJO YzrtppcfncpPV7UWEbMURm oP43Ov2vdUadEl8iKCQtGL T0JYFjrFPp E7QvkX4hKoGiGILhRQQwJ7 TxkXPyIYgzQ835ZRhwDyU6 KZXoowTcK6XgNHKvrNwwVn M4m8T4Ua9T VEiiebd6Y7HeEdabiMS+PC 84JDIbPG03kBOmdRVgi9vy jBm8QdYeSJWmTDZ0vWxuAW iwd9CdVHCs Y29 (more content not included)... [facility] Progesterone LCon 12-17-2023 Progesterone LC 9.6 ng/mL Invalid Interpretation Code [facility] Comment on above: Result Comment: Foll icular phase 0.1 - 0.9 Luteal phase 1.8 - 23.9 Ovulation phase 0.1 - 12.0 First trimester 11.0 - 44.3 Second trimester 25.4 - 83.3 Third trimester 58.7 - 214.0 Postmenopausal 0.0 - 0.1 Performed At: [facility] [id number] [place], [place] [id number] Sarah Beal PhD Ph:[phone] Performed By: #### 3 [id number] ####[facility] (DEFAULT)[address] [place] [address] Provider Orderson 12-16-2023 Provider Orders [id number]#1.0 0OTGTIFF [facility] Coding Summaryon 11-24-2023 Coding Summary [employer] 64 JuskzgauGSb6jMy+PGhlYW Q+YT5OWJNsL38igCYdlN5j T8HJMBuPGjyxDZNNNFhQYf UebdWdPA5dgRVsXHVo IC8+XD0iDIFaFakeoOFrj9 H9jCD1U17dpw4pMVqnnXH3 PKVgCvNwrtsry3aciLc9MU cuNmluOyBt MEGpvL51RKD4xR96Zf78lI SxtIDom8xfqMb0AhWyHOMr REN3jLsoADjhf8VmHSQqI0 0rhMKrn7N3 UDKibYedoHNdCqNygDS8uS 0bLSotcvdtn2uxkdmxEqt7 em24oWTli5I2rOF5E8Tghc Y5XEBtvGHq GyumxTXTqG4wefiit6rbgv khMcPwGUUxGEx8RAb6EOSm vYqhDnJxKX11FHK6LNUkts OzZ4EsEXGm oGwlAfJ8u4M1Qz2KJ3ZPCi xhT7YOPIDTBWggpXG+PC90 yh80Q5XnErbqHsb0FVEmQY X9iZE7cO2r XQYfDEasi7B2aKP3Z8Ynfs Arcd4gb9qhOEYgQVukZ51k qSHmu7N3GJDuaNJ5QUHnsB ndJrZwjZ84 Oyc+TXIxzCbzm6ChMplha7 dgk9mjgJo3OetaRKPdfgSl fZsmXMW6a1NrYb9qNAVmjL K9xRW6fG5i XfVmVjS1DDgiX041SvBdbT WqKemiT38lJ0QhsHF+PHRy Ius1KVDwoAaoRM2kN6GfOO RpbmctbGVm pWaxTM3zRZRugmbaRNQwuE 3vJIKuC5d3AkHjKkP8LNjf G9BiBDSfnomoFy73nT3jZk QhJlI5HCpp U3DclnN5GRKnzNXfSZasLQ S7L58zh1Z1EZKnSTSjCCV8 bDL4zI0hbEtxdpexiDHhvY sgdmVydGlj WMmmXEhjJ024LNDezHaxEy NvZGluZyBEYXRlOiAgMDMv MjEvMjAyNDwvdGQ+PHRkIH V8iFewNPUb kGUpHQvtTo0ewGugjUkrTL 8xRKLgadpnGSUhoY3lYVId aSTxcSkaIG6gFOCoacmbn9 82KxFyXKC4 UULqrEKvL8QrqQ3tBfDjKN JaKEBiR6MldOBpLDjhD972 CTbgIpE6GGIiogFgB4QmOR FsaWduOiB0 v3P1Vd9Yg1CnhyutX0HhgI IpJoKeZbnhJJg3G4PkCtge dHI+ZY12PHHtZF20ZJr8XQ O1jDgeOXow MONpB3UycX2lPeBuTVXmRU RkOyc+PHRhYmxlIHdpZHRo HDdlTNWoYjPwqLndRA1hGu 9yZGVyLWNv fCdkxYQsShCsl9hiOSSaRP hcYR6feKowM6BysTU1ZDVg i1a6Bz97K50aU9LkgTF+PG WcfKD8vTE3 bQ4nZtVeMxK5JPeeA008Kj EqwIElLgmuc4xrs8dmoDo8 SgD6HGTvlhQedMdxBKC1g2 JbDx49Y93e IHdpZHRoPSIxNSUiIHZhbG wzvv9mjF5qNp6+PGNvbCB3 pVW6qA5bXfYcVeN7EInqN2 49InRvcCIv Lebok5etq0zktBs5HlEwAB HfaiGnpZfeXUS7s1TvDk01 L2UheLhbv2ZxGxs5un07bG Itr6T0fIT9 W5LzEXAjvgfsyHZnsPqyGI 8oXGIfzpouGJMxhN7bJKAf Z0o3YhZaVsA5OLlkP0Gujj U3LJSxjLNb WROpkECJnN5vvanyp7jcbv wgDuQiSMJgDBz9DKb0AJHg aAmcGhAuMIS7XwD4XUH3fK VkpC7gfTav vdjufV1zLjc+POI3vXVunL FAPL9lKaxdbCX+PHRkIHN0 gJqaOGflAKDpmG3tFBIpM3 w6BnPzGeR5 HGhfH3EvrfL5CKBbmHKjKR LfbLSPpU4wnfdtp7fxydni VcRkIHEiLZz4DBz4FMFxrZ duOiBsZWZ0 ZcH8ZHG0iKPzwM4zkWnnig lzbJ4yFna+QmlydGggRGF0 HDl4Z2YuVdk3RNAfoMogID 0ncGFkZGlu Nc8bzKxpdLomKQ7dOYDbpr goa157IaDuy1ujMQEogMRx DWdiQTC2F05fh3R8KVQaAQ CxCAZ0uKZ2 jT0isYjwfczyzCExhVmpha CltOiqCXnoGDpdT632TAMz nEioUdAdPDy2B1PiZak2JH LxnWelFG4l gQOaJIxfEt0adXnozVezWP 7zFSIdbtiee982GvFyi1ox KCNikUBoUDppRDK3M56xt0 K9KZCeMOXz CKD2uHT6tT1geSncicoiiH VmdDsgdmVydGljYWwtYWxp D474XJMfpCbbKuWqvWa4H6 KpByf1DUBt rOrrCY6qyAGbTWabVx0erL hlsXjqTB9uCTTgfefmd305 GrXhr2lxEOCdtRSmWPezLP Q5L03jp9S4 TLPaCADwZDP0vLB7fM8ojV lnbjogbGVmdDsgdmVydGlj UWiaOZcsM044RHRabHncVg BhdGllbnQg ZSeuEGz6R4BsUhrliEQ+PC 61AEWzIU70eDYyjHCat2na pKm5VhZqKYGdOHY1sOljAM yxn0AdRVOl Q63mqGGtt6F3MCCmcQqvgG CsKdQbjOU3rP6xMJyuwxoq m9zjzfctJenfq1eqip74wF 04I54sNAfo ZHRoPSIzMCUiIHZhbGlnbj 5htF9bGk7+HTWfjFV5xIN3 xM2gFJWfZxD9QZixO537Ij RvcCIvPjxj a7xoo2cbcAx5IjP6YREhtb QjrMxfNHG2h1KvKu98K70h IHdpZHRoPSIyMCUiIHZhbG opcq0ogN4j Ii8+TTBddVJ4xFO8xN9fPh HsRxI1SFdkT867HbHciKPf XeyhB71iM4KzsFZ+PHRyPj m4GMRfgTzp CW6dzUAgZNwxBi9fKGQ6Nw GgHvLdPYdvF1HwZQRiyian inwriRN3JLJyECXfrW68Wu 9udDogMTBw yUHPqG7caedxr2yaarvaBj SiARWiVOv4VWo8CGRvcVcp CrDrTYS4SuL2CEA3sPAxaS 1hbGlnbjog dU2vS9HdYXDaotmwHi54qU 8fBzIeYaA2LGfuSwz+Q1JB T8WEXtKyBBAYSBLQVnEvWI lDSEVMTEU8 E9IiWto1HKBdkDfiLW6zyP YsXLwoNe8xnBymyUrqDT1o RFRzvtvyPEAufG9kSMRmvD NbeNpkDA3u QGIwuanvr038MqEpTTW1QO TgaSStG8MvnE1mPaRiKIWj JXXrJ0PzgKHuPDyyZ121FU jrLqN1KOVf kgYvU3WhADBzhLwePaL1x6 D9Qz1bFq6aQR3pUZu1DO96 ZV61gUNfl0T4wOF6S6UiVW Rpbmctcmln aNW1XAJeZGYbdU70pKKeYV aaRn3fv9E6l383KICuYQTl hY60Ti7xtAtsOJVlrGCZwE 7ornnzb8lu raspHyZdDWSoZPm6SVo0XV BnwYtvVzIaFLF5ZxH6NKE9 dNCnbM6uhGidjvocjB2jIh c+MjUgWWVh gaS6O5TiOmg1VTHcbUhaXV 3wzHSbYSpzQx9dxAncoMvy AZ9nDQArxjriIRKqoF6dSZ JvdHRvbTog WC2sLRPsnuijz870HzNlER E3SKZugFPyS8TwaO8zPmQx GKGhDYBjI1EzwFTbNWcuD2 90HNbtQaI4 CHUbwaWtP6LsUMJbfFrmTa C2d9L2Ua5PWS2TNRB4L7Rs Bux5URSxzRfeLC9ilZIpCV jhJa0ziPrs tKtvXQ4hXDYewuohMNLkaV 3kGMSkoYMquPcyRP2rRZVb tqysn997DnVtDQZ6HDGmgO IvL8PbpA3w EqZvRHNdVUKrO9KlmUTwEY ihF205GFqwPeC4PFDqmlNp M7UeNYRcyVuwByO2o9A7Uh 1GwAToB7Ty E6o4E5EmGyxtiRL+PC90YW EdYX27mBBsdFPkt5swhSz3 CpCsEKDkKHZ4zNvzPVhub4 YxIMCaX10f oQHbe2K6NDLddBiclHKzBv XvvUK8rM6uPQlmawvgi9gb jgbqNkweo8nprr70vV66E3 9sIHdpZHRo SFWtRWRcBZYcyCwduu1bgC 9wIi8+MWYjeLA6tUN1mJ6b OfIiFzH1VIgaQ466CkAojU DhYcajc0wo v8wjjBu8PeUyNHIndgOhzM akPAU5o5SfNv45V52hJQak ZHRoPSIyMCUiIHZhbGlnbj 1lcQ3cPu4+ XH9cy9wgqf67mV74fJS+PH LxAEY1eKreZIakEUHhdX9b TAoxVjL3UDZgLaWcdV01kT DnLLjvUa8c lQekgMedPU0lCRDjbbptz3 66KeZdt7gaLHEnpGGsCUxq URI1N90tg2H6URFlKBBhGQ V5jSC2eT2b bGlnbjogbGVmdDsgdmVydG nbNLqcBMqzM223LRBwbKis QmZnaSAaP0ewwoGNUM0kGb wvdGQ+PHRk NHS7hOmwUArsEWHllE7wSS BaB3b2EuObQoX1YKbpH5Lu fpN4AUJlrZBzYLMzlAWLgQ 2kzphmo0rl huiiAtKgKSHgUBz1FJo0YS QxhFvcQlMcVGI4YqK4RSC2 lVEsuM7lzGcqquzqcK4qNt c+RklOOjwv dGQ+ETAfHZK1hSslJRwsYK ObhS4uLAEjD6m7SaGjEcM9 YUdyI9RrswU5BKFsySHvRS MskKJJeK8t bfgbq8gizurwGgXvGKTrIJ y5LQa4SSNavLpbNoQfJEI6 WnT5UUF9lBMzmI8pxZnbxb jxnU7fPzh+ TVJOOjwvdGQ+KKEcQGT1tQ wkRBtaTXKidY7cBLQsM4w3 SeTxIsO9AIukE6XoqoX6KS JvbGQgMTBw zTLUrM0qmaoaf0wjqmcjUa WdRDWrPVx1RIf8ZYWkyQrm HuWaOCZ7UoS8OUU4jEUkwT 1hbGlnbjog hA3zRbf+VXX8HQT5OB37FZ 01X3ZeRuigrPTtgUK+[facility] YmxlIHdpZHRoPScxMDAlJy FsaPsjMM4o Ym9 (more content not included)... Normal [facility] ED Clinical Summaryon 2023 ED Clinical Summary [facility] - Emergency Department [address] [place], [place] [id number] ED Clinical Summary PERSON INFORMATION Name: SHERLY ASTUDILLO Age: 23 Years Sex: FEMALE : 2000 MRN: Acct#: Visit Reason: Laceration of finger; LEFT INDEX FINGER CUT Arrival: 11/19/2023 09:14:04 Discharge: 11/19/2023 10:10:00 LOS: 000 00:56 Check In: 11/19/2023 09:14:04 Checkout:11/19/2023 10:10:00 Address: [address] [place] [address] PCP: Anthony Gomez MD PROVIDER INFORMATION Provider [...] indicated that she was using a box blank machine feeder. She used a sharp knife, and accidentally [...] History Medical history: Resolved Ankle fracture, left ([id number]): Resolved. 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 Surgical history: Cholecystectomy ([id number])., Reviewed as documented in chart. Family history: [...] Polycystic ovaria (more content not included)... Normal [facility] ED Note - Physicianon 2023 [...] indicated that she was using a box blank machine feeder. She used a sharp knife, and accidentally [...] History Medical history: Resolved Ankle fracture, left ([id number]): Resolved. Ankle impingement syndrome ([id number]): Resolved., Reviewed as documented in chart. Surgical history: Cholecystectomy ([id number])., Reviewed as documented in chart. Family history: [...] and orient (more content not included)... Normal [facility] ED Note-Nursingon 11-19-2023 ED Note-Nursing Pt ambulatory back t o ED rm 6. Pt C/O Left index finger laceration. Pt states she was trying to open a box and cut the finger with a box blank machine feeder. The wound on the index finger is a straight line of 4cm with a width of 0.2cm. States last tetanus was more than 5 years ago. Pt is A/Ox4. Normal [facility] ED Patient Summaryon 024 ED Patient Summary [facility] - Emergency Department [address] [place], [place] [id number] PATIENT DISCHARGE INSTRUCTIONS Patient Information Name: SHERLY ASTUDILLO Age: 23 Years Date of : 2000 Reason For Visit: Laceration of finger; LEFT INDEX FINGER CUT Arrival Time: 11/19/2023 09:14:04 Primary Care Physician: Anthony Gomez MD Attending Physician: Sreedhar Cheney MD Comment: Visit Diagnosis: Diagnoses This Visit Laceration of finger ([id number]) Laceration of left index finger (S61.211A) The Pharmacy at [facility] is open Tuesday through Tuesday from [...] alcohol and/or drug addiction problems; contact the [facility] 28/03 Crisis Hotline -Text 0GHVP wm [phone]. If you received any narcotics, sedation, or [...] legal documents With: Address: When: Anthony Gomez [address] [place] [address] [phone] Business ([employer] Within 5 to 7 days Comments: Reviewed [...] and treatment you received today in the [facility] Emergency Department were for an urgent problem and are not intended as complete care. It is important for you to follow up with a doctor, nurse practitioner, or physician?s radiology assistant for ongoing care. If your symptoms [...] so we can reach you if necessary. [facility] Emergency Department has provided you with a complete list of medications post discharge. Please inform your computer analyst/provider of your visit and for further instruction [...] better healing. Unl (more content not included)... [facility] Coding Summaryon 11-02-2023 Coding Summary HTMLBase 64 NxjketxxRKo5oUp+PGhlYW Q+XB7JIWLdB60ipAWumI6w O7HJSLxNIknzWSYHBCyGSl HxqhEfAJ2kjXGkBSBv IC8+KI3dTMGwIyfppHHli3 B5uOE2J30lof7aDQgnlFY8 WTNzQaCdtqpyx1qqqXx0UC cuNmluOyBt WKNhcF28IXA8yU04Es32eF KuoWDym0bzzJk0MlOcGRHd EGM8dLyiTWshd6QiDZWfY7 8saLEep0A0 XZXxrBpofOXkVeYvkOE5kH 8bWAnekwhwe4ihjqiyBqy9 kx34xKKyt7Q6pTH5Q8Fmjq A4DFYriHGs ZkqqnFWSqR7lcxxdf9rupi onWzCxYQAkBYc5USa4LJYd wHcxLaOiNY34WXK3XUUzlx UmJ5ZoODHa iLwpCiG8i8S6Sa6NH9IEIc ouP7CSRURAKHbbxUW+PC90 hd34W8JqYbyyJen5AABqXI X3lUU7bH9b KCUzBBnmk1G7uBM8O9Yavd Lqcn7yu5bjODDjTXyhO58h eNMip0C2AHWltAX2FIEhkQ ghExTbpJ22 Oyc+PWKjkDwfu0TaOsifb9 cny9ohsWv9RghaRWAlkvKi aXnpJEN5r9AqPu8aNSPpoH M0cMQ0wQ2f IyRxErG7JGtwA363OhTlrB IeKvrjN37fH4AvlEE+PHRy Icg6PHOadKdoPN6pQ8AxLR RpbmctbGVm dOukOZ2wXVDptxpcEUNacD 7sEATaT8m3EyTxCnH6HSqt N8InKCUzszrbEu93wQ4jKo OvIjC7RZty G1YyatN8SSEmvUPiVKuvRB B3I24tu4S2IWZbISSkZOB6 lEM8oS7mkXwlosipeDHlfF sgdmVydGlj TAwxMMmnW285LJJuhYobNw NvZGluZyBEYXRlOiAgMDIv MjgvMjAyNDwvdGQ+PHRkIH E7yMebDKGd gIJlWYigYl4fjNsluTkkIO 5kXMSrnkooHVZbzZ6oUNPm xWQngSneXQ7zUEVsthkxl9 47XxAoNBB9 WYWisXExD6DizC0lVjMhTA MkEIFgW0PfoWJqDIcaD992 ZEaxHzG8NNDfroCiR5WdIV FsaWduOiB0 d5J2Wv5Yn3RleyuxM9ElsU RkLrUpYumcCMc4R1CqAhsa dHI+LD00OEIkEJ78OVg4CC J5eYxzCDob MJGwY6KraL4yNfJpCWOtCI RkOyc+PHRhYmxlIHdpZHRo IIwxZBXnEpQgiXwhAR9eKr 9yZGVyLWNv gXczkSZkNcGym4vmMIVmTX vsNQ0tsIhrZ5TupBO5GWSm h4b5Dk84V10nD3DesUX+PG IprZA7hEC0 kZ1zLgIbVyQ1VEtrM725Zp ZlfSLfGeocp9ycm8dyhDl7 QaQ4NVQlfaQjeZzqJVK1r8 DiYc63V67b IHdpZHRoPSIxNSUiIHZhbG bjhs9dpZ2vSw4+PGNvbCB3 jCY7wI5rFuChMkY5IIddY5 49InRvcCIv Djmjp6mbd5bfeVh8AgWcAZ SwivImeBmmWRK1b2WnAh68 C2ExaXemg6RqIfe5ce99rT Wpb4J8nEY3 K4ZtZMDyzrrtsVEmoFpwZE 9uCGOpujplSHTddU4pXBOr I6o5CbOgKqW0DJepR1Nfla S3MFZdnJBc JHWmsODAxO2wwmbyl7ekpi kxFmUnJDJqUZg4NRl5TFRc zYrfAwTmNSS4EfC1OGT7mQ PodR4syUfo xigcbM1zFfn+NRS8bJTlbY YZBC7mMvdbeRD+PHRkIHN0 yFhvRMnlBTKypH3bEPTxK5 j0RjXsQmZ5 GZskC5DiumM2IWWokQMdJG JseLAHiE8wjfdjp0xplsac RxRsEEGhTMv4LUn7ENBbwC duOiBsZWZ0 XlX9DJP7eRNkeL5grExcun pzvW9nPyi+QmlydGggRGF0 YYm7P2OpYes7QKDriIjcYG 0ncGFkZGlu Iw4tzUzgtMyoSI4mDUDfna oad981VlHhh6acGHTtfNWk UTosYVC0C52eq5Z0DFRlQO EbIVY8nDP3 kB4iaMulznsgbFSziLijfm JlvXteKFdgWHxqG561BUYp mFjwSlUrYGq3H0IrEbz7BY EisHevOF8z iUAxFVmnYv9tnDmrrNrbEH 0oYNDsssxhf315QqZpz5yx WBAspXMaOHmxASL5Y49gz1 M2QNTkRCXm RWU9hKU7rS8wzPnofbxmoW VmdDsgdmVydGljYWwtYWxp R176GGEuwNtzMqYejEu8Q7 ZbDxh4VEUs pTsuPV4coKZvZLmpVi1ihN fsyTrmFS8pTBXjnflmn180 NrJew7yqLXNvnFOqLWyvSC I5H01il7O3 HZQkDAPcCAG9sAD6cF5maG lnbjogbGVmdDsgdmVydGlj ILxqVAivI099DGPnrQpmAe BhdGllbnQg BFseSSu7L3MzSqdeoRP+PC 76JRErCR45nJJtnOOzv5xh vIv5HmPsSJDhFLB9nXuvLO wjn1DvPXHn H33hlSNic8S2HJWthIzjiA QaLjJkrWP8jZ2nSFcaaynn c1zmwpmkQoelq5zlrt22lR 96J68wWUbk ZHRoPSIzMCUiIHZhbGlnbj 4iiM8lJo2+HQPskXR9sJM0 rK3fUWRpMjR4SXqfM453Fd RvcCIvPjxj d2utt6diiIy8HrO2JOSpde HwoCdvEVR5a4UhYr49G98f IHdpZHRoPSIyMCUiIHZhbG vlur0tmK4c Ii8+RQXuvGE3fUS4lK6oJg PsFoO1GOuxH301ZbRtuFQs WkqzB86rO6HjoRF+PHRyPj f6NLXojPbw TC8eqNJsMDheWa3eHJK0Xz RyWjLkJFnoT5ExHLYwtdnc iaassAS5IZFkMYZwmU10Oj 9udDogMTBw qZLLbM0kmumtj9gnwivaHi FxVRClXIk8ZEa8WEQwyHrq JhXaGHZ3EjL3VAB7jDNjfL 1hbGlnbjog fW7tC9SuZIIfevevWp72kX 9zErUaAdH1VGruQql+Q1JB G6NDHrRpBIDPUXVAKdAbJX lDSEVMTEU8 P2OdJhl8LWJkmKzsKD1fgZ HnEMhiVi4vcUnlcIrhLU8u XAVzucstVZKxuD6gOAFalV XkaDykNO5c WQNywntbu942XqThRTC0GW NzrWUbO1ObjG1yCeAcRGPi DVTaW7KcsKKhHFcoT846II ssUbE2JVYe xmKaD9GdVFLvyDqcHfK9g6 E5Sz9oWc2rXB0jADf1DW34 EJ52bACcm2J4oZA5A7NjZY Rpbmctcmln uJB1COYbDLAemV37lWKqHX fyMu1mg7L1h790YUIrRTWk wL81Ws8kbTykNUEkoJJWkZ 4hjiufb7tq wgweAxMzZGJcROt6ZBf9GE SufRieXkGaGIP9KiW2JEW3 mSRiqO5ksUuyziaquU5uZx c+MjUgWWVh ptT5E9DaDxx9XBOfnHdgRI 9jtBYvDVenZe3rhBjkgBek VD3zYJHnbrcmTTBdmV4zLJ JvdHRvbTog BM5gBAOiegsoy146FrDkOP D1QAGcnLNmI2IxxD5wNoXr SWGgQRGaC6NunJYsAYftJ1 05NFzfUxX0 JFPenkKcF7ZkOCQcjAevQl R2x9F1Xv4OYD8YNME5Y5Nc Smw8CTRdbBeeCV8jqVNmZH xsXo1uqRdb wKzlQZ9eDGYxabtoHPTcnK 5wNWQglJIbiVmrJB7pAJFw htnpg077SwNtWOA4BNLewL JfP8JfzF4i PtMrQBQjQADsF1IkvFDrFI kpH137ZMqwFkU2UGEsatQm I3BbXBNevLgnLbH4t2U6Xl 5PUDwvdGQ+ JB22ow53Z7MwZrhbFts1KG PkNPE6ePI7dF4rYCLaXHvj m4T2aZN9Q1RqgdFsaj9rq7 xsYXBzZTog B60snQStn8N7NGJyaYP3BR QexIerOcKxmW07Tkz+PGNv aJhmj7BeKvjaa3zub5mnzA d8DmPuSBIm tjCsiJoeIVB4p0VvIv98J6 9sIHdpZHRoPSIzMCUiIHZh zOvnct0gcX3jDf8+PGNvbC D4iYB3hH6o SeRhAxE7PLjkO882IgCneX EpEawuz6ejs1zwtSf1SfDk LRWnsuFatHjtXTE8s6RvJr 88K5TlySwq q8ZxAzm9pi32aYYow2O9aL D2B3WbGUQyoqbtsXIzgKeq IA8zTZDrbxkaMXMzoE0yAH DkC8l3GdUp YnA2YTvwM0DxscW6CVCwdQ MiXMFgrAXAnJ7oihoha3gl hzaeOqStQRKkGGe0VMf6QS FsaWduOiBs PBN6OzW1EUU4rRBkqZ7gsD mjwexhyW6qVtk+SBa1z3uk kKBfCO5nyHU9LB74ZE06pF Fcs9X4sKD5 Y7KhWNKxjwegtozueEA5IF UcSJNdwX55Ai6hwOmrYy5k GOBrCAN8RLDzjDPkM6ZvrB 9yOiAjMDAw RAQqY6EdmVZeWMmdC533AD beGuX1BOWfcdPfL7RzIHTu cHwgGhC2a2N7My8VGW01PU 32MC12bDTj a8X5xOO5F7HmWHFjiiwbrj qemAE8VXJjPUHfeS41Jr9j wVcsYl7fVOVtXET8GYYljH PpD4XozS7j LaGfGVKsFGCvX7QauTTqTC dxD466ENgsOkD1HLKwjzAj H7DcDTPadFwnZmD0f2K4Gh 5NHa90RP14 YC95dHDvf9L5sNY3H5FfGI PenbgeabmucNS7SJIsADSj aS58Iw9ptHtdKv4vFRMyYP G7CLUieMMb C0GefW3kJlEhUFSjHIKnT9 IwdODcTBafQ180AVdzTmW5 GQPyfuEtS2BnMKTvoZjuDg Y2t0U4Ud3C SRwmooq2P1MqMayubBU+PC 36OKPeVD00rEEskOBjd1lc rEu3AcJjIFFrXWV2xLwuJG fav7GdMCKz Y29 (more content not included)... Normal [facility] Dehydroepiandrosterone (DHEA ) LCon 11-02-2023 Dehydroepiandrosterone (DHEA) LC 456 ng/dL Invalid Interpretation Code 3906 [facility] Comment on above: Result Comment: This test was developed and its performance characteristics determined by [facility]. It has not been cleared or approved by the Food and Drug Administration. Performed At: [address] [id number] Gustavo Donis MD Ph:[phone] Performed By: #### 6 505134, [id number], [id number], 2856069, 93796722, 15187178, 2136826, 1211676, [id number] ####[facility] (DEFAULT)[address] [place] [address] Miscellaneous Testing LCon 0 11-01-2023 [facility]. Test Result LC COMMENT Invalid Interpretation Code [facility] Comment on above: Result Comment: Test Ordered: [id number] Anti-Mullerian Hormone (AMH) Anti-Mullerian Hormone (AMH) 5.22 ng/mL ES For assays employing antibodies, the possibility exists for interference by heterophile antibodies in the samples.1 1.Aubree Norton Interferences in Immunoassays - still a threat. Clin. Chem. 2000; 46: 8370-4646. This test was developed and its performance characteristics determined by [facility]. It has not been cleared or approved by the Food and Drug Administration. Reference Range: Females 20 - 25y: 1.23 - 11.51 Median 4.70 AMH concentrations of >= 1.06 ng/mL is correlated with a better response to ovarian stimulation, produced more retrievable oocytes and higher odds of live according to Kelli et al. Fertility and Sterility. 2010: 94:2600-9473. The current AMH test method correlates with [...] exclude an AMH-secreting ovarian tumor. Performed At: [address] [id number] Sarah Beal PhD Ph:[phone] Performed At: [facility] [address] [place] [id number] Wagner Forte MD Ph:[phone] Performed By: #### 1 [id number] ####[facility] (DEFAULT)[address] [place] [address] Dehydroepiandrosterone Sulfa te LCon 10-29-2023 DHEA-Sulfate LC 252.0 ug/dL Invalid Interpretation Code 84.8-378.0 [facility] Comment on above: Result Comment: Perf ormed At: [address] [id number] Sarah Beal PhD Ph:[phone] Performed By: #### 6 878287, 22907531, [id number], 1138074, 41106284, 25860818, 2845010, 4335469, 24506989 ####[facility] (DEFAULT)[address] [place] [address] FSH and LH LCon 10-29-2023 FSH LC 5.9 mIU/mL Invalid Interpretation Code [facility] Comment on above: Result Comment: Adul t Female Range Follicular phase 3.5 - 12.5 Ovulation phase 4.7 - 21.5 Luteal phase 1.7 - 7.7 Postmenopausal 25.8 - 134.8 Performed At: [facility] [id number] Sarah Beal PhD Ph:[phone] Performed By: #### 6 199525, [id number], [id number], 9028856, 42146451, 64302827, 0744478, 6360768, 10739913 ####[facility] (DEFAULT)[address] [place] [address] LH LC 5.5 mIU/mL Invalid Interpretation Code [facility] Comment on above: Result Comment: Adul t Female Range Follicular phase 2.4 - 12.6 Ovulation phase 14.0 - 95.6 Luteal phase 1.0 - 11.4 Postmenopausal 7.7 - 58.5 Performed By: #### 6 278726, [id number], [id number], 2621391, 13567091, 35976020, 1450289, 5680579, 95736546 ####[facility] (DEFAULT)[address] [place] [address] .Auto Diff 1on 10-28-2023 Auto [place] % 6 % Normal -12 [facility] Comment on above: Performed By: #### 6 716157, 96363062, 2395034107, 9639303, 61439467, 04229135, 7951779, 2665424, 17782958 ####[facility] (DEFAULT)[address] [place] [address] Baso Abs# 0.1 x10 Normal 0.0-0.2 [facility] Comment on above: Performed By: #### 6 195220, 28741829, [id number], 3550131, 61523545, 58679462, 5250109, 7672880, 08316126 ####[facility] (DEFAULT)[address] [place] [address]84 Basophils/100 WBC (Bld) 0.8 % Normal 0.2-2.0 [facility] Comment on above: Performed By: #### 6 917981, 52362551, [id number], 3567637, 03902606, 33905319, 7719128, 0069354, 74920410 ####[facility] (DEFAULT)[address] [place] [address]12 Eos Abs# 0.3 x10 Normal 0.0-0.4 [facility] Comment on above: Performed By: #### 6 955640, 87278542, 9110534681, 4888675, 27427279, 86202301, 2413784, 7522467, 22650670 ####[facility] (DEFAULT)[address] [place] [address]405 Eosinophils/100 WBC (Bld) 3.9 % Normal 0.9-4.0 [facility] Comment on above: Performed By: #### 6 044859, 65303790, 8568477543, 7205192, 71166276, 78627321, 8808186, 1292535, 87049016 ####[facility] (DEFAULT)[address] [place] [address] Lymph Abs# 3.2 x10 High 1.3-2.9 [facility] Comment on above: Performed By: #### 6 907716, 46258939, 6962870255, 9760589, 57049465, 58296658, 9629918, 7700593, 69871602 ####[facility] (DEFAULT)[address] [place] [address] 65147 Lymphocytes/100 WBC (Bld) 42 % Normal 14-48 [facility] Comment on above: Performed By: #### 6 421690, 33751904, 4416263917, 5745967, 18913327, 74778467, 4087273, 8290781, 36588522 ####[facility] (DEFAULT)[address] [place] [address] [place] Abs# 0.4 x10 Normal 0.0-0.8 [facility] Comment on above: Performed By: #### 6 543544, 02091398, 6095129918, 7304298, 39089205, 32851302, 0235310, 6497215, 84186016 ####[facility] (DEFAULT)[address] [place] [address] Neut Abs# 3.5 x10 Normal 1.5-9.2 [facility] Comment on above: Performed By: #### 6 538135, 38846752, 6120107082, 7704404, 85909545, 62422448, 8224819, 6371212, 14534125 ####[facility] (DEFAULT)[address] [place] [address] Neutrophils/100 WBC (Bld) 47 % Normal 44-88 [facility] Comment on above: Performed By: #### 6 048170, 68310305, 8233249216, 2402155, 76455037, 86927745, 0568819, 0647219, 65638587 ####[facility] (DEFAULT)[address] [place] [address] CBC w/ Auto Diffon 4 Erythrocyte distribution width (RBC) [Ratio] 13.6 % Normal 11.5-15.0 [facility] Comment on above: Performed By: #### 6 037572, 23460987, 7089285319, 9150791, 88411797, 82841418, 3832778, 8339168, 36165633 ####[facility] (DEFAULT)[address] [place] [address] Hematocrit (Bld) [Volume fraction] 42.1 % High 33.7-40.4 [facility] Comment on above: Performed By: #### 6 123603, 22068286, 3709469061, 8633871, 23903919, 95283090, 7402369, 2890915, 63632638 ####[facility] (DEFAULT)[address] [place] [address] Hemoglobin (Bld) [Mass/Vol] 14.1 g/dL Normal 11.3-15.9 [facility] Comment on above: Performed By: #### 6 017678, 37056681, 4266834824, 4207562, 00412419, 38065795, 9037018, 7122665, 63192738 ####[facility] (DEFAULT)[address] [place] [address] MCH (RBC) [Entitic mass] 29 pg Normal 24-34 [facility] Comment on above: Performed By: #### 6 899979, 33611176, [id number], 1756456, 73997253, 97355812, 0569653, 9331437, 67963647 ####[facility] (DEFAULT)[address] [place] [address] MCHC (RBC) [Mass/Vol] 34 g/dL Normal 26-37 [facility] Comment on above: Performed By: #### 6 334562, 42543122, [id number], 5875793, 71598544, 66889044, 9144536, 3754962, 74795540 ####[facility] (DEFAULT)[address] [place] [address] MCV (RBC) [Entitic vol] 86 fL Normal 81-100 [facility] Comment on above: Performed By: #### 6 371601, 66313072, 1967255244, 6061799, 88313779, 72556971, 4177758, 0484628, 38959310 ####[facility] (DEFAULT)[address] [place] [address] 78699 Platelet 383 x10 Normal 138-427 [facility] Comment on above: Performed By: #### 6 299341, 92236711, 5837684658, 5560413, 63361279, 79662126, 8174032, 0530566, 15506724 ####[facility] (DEFAULT)[address] [place] [address] 93978 Platelet mean volume (Bld) [Entitic vol] 7.9 fL Normal 6.3-10.2 [facility] Comment on above: Performed By: #### 6 862372, 45031613, 3299206999, 1682112, 45792540, 75493430, 1611353, 5266728, 65027843 ####[facility] (DEFAULT)[address] [place] [address] 11226 RBC 4.91 x10 Normal 3.70-5.30 [facility] Comment on above: Performed By: #### 6 868804, 76067825, 3910854811, 9942373, 49271198, 55482253, 1618397, 3446690, 38795649 ####[facility] (DEFAULT)[address] [place] [address] 22334 WBC 7.4 x10 Normal 3.5-10.5 [facility] Comment on above: Performed By: #### 6 008517, 76724180, 0691865503, 1042589, 98061071, 56917390, 7790043, 8409521, 77635706 ####[facility] (DEFAULT)[address] [place] [address]806 Man Diff? Auto Invalid Interpretation Code [facility] Comment on above: Performed By: #### 6 219485, 06723165, 7626852317, 8818251, 51134140, 24618899, 9652740, 0946143, 76644784 ####[facility] (DEFAULT)[address] [place] [address] 36544 Free T4on 10-28-2023 Free T4 [Mass/Vol] 0.73 ng/dL Normal 0.61-1.12 [facility] Comment on above: Performed By: #### 6 998068, 45761744, 4169191045, 7111878, 13991913, 52743237, 4018366, 2309663, 38340561 ####[facility] (DEFAULT)[address] [place] [address] 46851 HgbA1c Standardon 10-28-2023 .Hb 14.4 Invalid Interpretation Code [facility] Comment on above: Performed By: #### 6 571527, 04025347, 0425426238, 7790456, 07005190, 51549212, 0856549, 1396793, 59437937 ####[facility] (DEFAULT)[address] [place] [address] 57251 .Hgb A1c 0.48 g/dL Invalid Interpretation Code [facility] Comment on above: Performed By: #### 6 323384, 45402418, 9878140216, 6960965, 95184740, 96520716, 5252645, 2116370, 78466399 ####[facility] (DEFAULT)[address] [place] [address] 57027 Glucose [Mass/Vol] 102 mg/dL Invalid Interpretation Code [facility] Comment on above: Performed By: #### 6 460817, 52056593, 1765857326, 4543308, 65799257, 44287663, 7288817, 0136514, 50250275 ####[facility] (DEFAULT)[address] [place] [address] 50375 HbA1c (Bld) [Mass fraction] 5.2 % Normal 4.6-6.2 [facility] Comment on above: Performed By: #### 6 851342, 77148151, 8162588767, 7365798, 74539971, 46158088, 8607237, 1288094, 44738124 ####[facility] (DEFAULT)[address] [place] [address] 34347 Miscellaneous Testing LCon 0 10-28-2023 Test Code LC 787923 Invalid Interpretation Code [facility] Comment on above: Performed By: #### 1 [id number] ####[facility] (DEFAULT)[address] [place] [address] 66203 Test Name LC anti-mullerian hormone Invalid Interpretation Code [facility] Comment on above: Performed By: #### 1 [id number] ####[facility] (DEFAULT)[address] [place] [address] 44428 Provider Orderson 10-28-2023 Provider Orders [id number] .00OTGTIFF Normal [facility] TSHon 10-28-2023 TSH Qn 2.34 m[IU]/L Normal 0.45-5.33 [facility] Comment on above: Performed By: #### 6 721098, 39853703, 5786471550, 2058906, 62799348, 44074430, 9726270, 4331365, 90027356 ####[facility] (DEFAULT)[address] [place] [address] hCG Quantitativeon hCG Quantitative <0.6 Normal 0.0-0.6 [facility] Comment on above: Result Comment: Post -Menopausal Reference Range is: 0.1-11.6 mIU/mL Performed By: #### 6 033235, 17333635, 1869150035, 6517378, 03336972, 14567261, 6351311, 1965443, 59959742 ####[facility] (DEFAULT)[address] [place] [address] Outside Recordson 10-18-2023 Outside Records [id number]. 00OTGTIFF Normal [facility] Mikael 01-04-2022 L -- ---- Specimen: [id number] Received: 01/05/22125 Status: QUOC Garber Num: [id number] Spec Type: Surgical Subm Dr: Rodney Lema MD Tissues: A Skin-Other than Cyst, tag, debridement or plastic repair (SCALP) Procedures: HE Stain/5, Gross/Micro L4 ---- Patient Age/Sex Location Account Attending Physician ---- BaudilioSherly Yue 21/ [facility] [id number] Rodney Lema MD ---- SPEC NUM: [id number] RECD: 01/05/22 STATUS: QUOC GARBER NUM: [id number] JANE: 01/04/22 [facility] DR: Rodney Lema MD ENTERED: 01/05/[address] [facility] [address]: Dea,Lab SPEC TYPE: Surgical DEPT: MAG [...] 10% Neutral Buffered Formalin (ESTELA/YJ) ---- Specimen: [id number] Received: 01/05/22 Status: QUOC Terrynavin Num: [id number] Spec Type: Surgical Subm Dr: Rodney Lema MD Tissues: A Skin-Other than Cyst, tag, debridement or plastic repair (SCALP) Procedures: HE Stain/5, Gross/Micro L4 ---- Patient: Sherly Astudillo [id number] (Continued) ---- Specimen: [id number] Received: 01/05/22 (Continued) Signed (signature on file) Debora Cintron MD 01/07/22 0930 ---- Specimen: [id number] Received: 01/05/22 Status: QUOC Garber Num: [id number] Spec Type: Surgical Subm Dr: Rodney Lema MD Tissues: A Skin-Other than Cyst, tag, debridement or plastic repair (SCALP) Procedures: HE Stain/5, Gross/Micro L4 ---- Patient: Sherly Astudillo [id number] (Continued) ---- Specimen: [id number] Received: 01/05/22 (Continued) Microscopic Description Six glass slides with H E stained material and two IHC stained slides have been examined. The microscopic findings support the above pathologic diagnosis. ANALYTE SPECIFIC REAGENT (ASR) DISCLAIMER: The use of one or more reagents in the above tests is regulated as an analyte specific reagent (ASR). The performance characteristics were determined by the [facility]. Immunohistochemistry assays have not been validated on decalcified tissue. Results should be interpreted with caution given the possibility of false negative results on decalcified specimens. They have not been cleared by the US Food and Drug Administration. The FDA has determined that such clearance or approval is not necessary. CPT Codes 65504, 97959, 53862 ---- ---- Specimen: [id number] Received: 01/05/22 Status: QUOC Jcarlos Num: [id number] Spec Type: Surgical Subm Dr: Rodney Lema MD Tissues: A Skin-Other than Cyst, tag, debridement or plastic repair (SCALP) Procedures: HE Stain/5, Gross/Micro L4 ---- Patient: Sherly Astudillo [id number] (Continued) ---- Signed (signature on file) Debora Muller (more content not included)... [facility] Cytology Cervical or vaginal smear or scraping studyon 12-26-2019 [facility] Vital Signs Date Time Vital Sign Value Performing Clinician Rick todd 10-08-2024 13:57-0500 Body mass index (BMI) [Ratio] 42.15 kg/m2 Emily TALBERT Work Phone: [facility] 10-08-2024 13:57-0500 Body weight 122.07 kg Emily TALBERT Work Phone: [facility] 10-08-2024 13:57-0500 Diastolic blood pressure 82 mm[Hg] Emily TALBERT Work Phone: [facility] 10-08-2024 13:57-0500 Systolic blood pressure 122 mm[Hg] Emily TALBERT Work Phone: [facility] 09-10-2024 14:35-0500 Body mass index (BMI) [Ratio] 40.94 kg/m2 Cole Celeste DO Work Phone: [facility] 09-10-2024 14:35-0500 Body weight 118.57 kg Cole Celeste DO Work Phone: [facility] 09-10-2024 14:35-0500 Diastolic blood pressure 76 mm[Hg] Cole Celeste DO Work Phone: [facility] 09-10-2024 14:35-0500 Systolic blood pressure 118 mm[Hg] Cole Celeste DO Work Phone: [facility] 08-08-2024 11:09-0500 Body mass index (BMI) [Ratio] 39.37 kg/m2 Cole Celeste DO Work Phone: [facility] 08-08-2024 11:09-0500 Body weight 114.03 kg Cole Celeste DO Work Phone: [facility] 08-08-2024 11:09-0500 Diastolic blood pressure 72 mm[Hg] Cole Celeste DO Work Phone: [facility] 08-08-2024 11:09-0500 Systolic blood pressure 120 mm[Hg] Cole Celeste DO Work Phone: [facility] 07-10-2024 10:45-0500 Body mass index (BMI) [Ratio] 38.37 kg/m2 Cole Celeste DO Work Phone: [facility] 07-10-2024 10:45-0500 Body weight 111.13 kg Cole Celeste DO Work Phone: [facility] 07-10-2024 10:45-0500 Diastolic blood pressure 74 mm[Hg] Cole Celeste DO Work Phone: [facility] 07-10-2024 10:45-0500 Systolic blood pressure 118 mm[Hg] Cole Celeste DO Work Phone: [facility] 06-07-2024 13:09-0400 Body mass index (BMI) [Ratio] 38.53 kg/m2 Nom Nurse [facility] 06-07-2024 13:09-0400 Body weight 111.58 kg Nom Nurse [facility] 06-07-2024 13:09-0400 Diastolic blood pressure 72 mm[Hg] [facility] Nurse [facility] 06-07-2024 13:09-0400 Systolic blood pressure 116 mm[Hg] Nom Nurse [facility] 05-08-2024 11:32-0400 Body height 170.2 cm Cole Celeste DO Work Phone: [facility] 05-08-2024 11:32-0400 Body mass index (BMI) [Ratio] 39.16 kg/m2 Cole Celeste DO Work Phone: [facility] 05-08-2024 11:32-0400 Body weight 113.4 kg Cole Celeste DO Work Phone: [facility] 05-08-2024 11:32-0400 Diastolic blood pressure 80 mm[Hg] Cole Celeste DO Work Phone: [facility] 05-08-2024 11:32-0400 Systolic blood pressure 124 mm[Hg] Cole Celeste DO Work Phone: [facility] 10-06-2023 08:53-0500 Body height 170.2 cm Cole Celeste DO Work Phone: [facility] 10-06-2023 08:53-0500 Body mass index (BMI) [Ratio] 38.28 kg/m2 Cole Celeste DO Work Phone: [facility] 10-06-2023 08:53-0500 Body weight 110.86 kg Cole Celeste DO Work Phone: [facility] 10-06-2023 08:53-0500 Diastolic blood pressure 72 mm[Hg] Cole Celeste DO Work Phone: [facility] 10-06-2023 08:53-0500 Systolic blood pressure 120 mm[Hg] Cole Celeste DO Work Phone: [facility] Encounters Encounter Date Encounter Type Care Provider Facility Start: 10-22-2024 End: 10-22-2024 ambulatory COLE ALONSO Not Available Start: 10-18-2024 End: 10-18-2024 ambulatory [facility] Start: 10-15-2024 End: 10-15-2024 Chart abstracting Scanning Provider External [facility] Start: 10-08-2024 End: 10-08-2024 Bamboo flowsheet Emily TALBERT Work Phone: [facility] Start: 10-08-2024 End: 10-08-2024 Bamboo flowsheet Emily TALBERT Work Phone: [facility] Start: 10-08-2024 End: 10-08-2024 Office outpatient visit 15 minutes Emily TALBERT Work Phone: [facility] Comment on above: Third trimester preg maicol; 26 weeks gestation of ; Diabetes mellitus screening Start: 10-08-2024 End: 10-08-2024 ambulatory EMILY LUNDY Not Available Start: 10-06-2024 [facility]ulatory [facility] Start: 09-24-2024 ambulatory [facility] Start: 09-10-2024 End: 09-10-2024 Clinisync Result Encounter [...] Start: 08-08-2024 End: 08-16-2024 Bamboo flowsheet Cole Celsete DO Work Phone: [facility] Start: [...] encounter procedure Cole Celeste DO Work Phone: [facility] Work Phone: Start: 08-08-2024 End: 08-08-2024 ambulatory COLE CELESTE Not Available Start: 07-31-2024 End: 07-31-2024 Clinisync Result Encounter Cole Celeste DO Work Phone: [facility] Department Unsolicited Start: 07-31-2024 End: 07-31-2024 Clinisync Result Encounter Cole Celeste DO Work Phone: [facility] External Department Unsolicited Start: 07-10-2024 End: 07-10-2024 Bamboo flowsheet Cole Celeste DO Work Phone: [facility] Start: 07-10-2024 End: 07-10-2024 Bamboo flowsheet Cole Celeste DO Work Phone: [facility] Start: 07-10-2024 End: 07-10-2024 Office outpatient visit 15 minutes Cole Celeste DO Work Phone: [facility] Comment on above: Second trimester pre gnancy; 13 weeks gestation of ; Nausea and vomiting in ; Diabetes mellitus screening Start: 07-10-2024 End: 07-10-2024 ambulatory COLE CELESTE Not Available Start: 07-05-2024 End: 07-05-2024 ambulatory [facility] Start: 07-04-2024 End: 07-04-2024 Clinisync Result Encounter Cole Celeste DO Work Phone: [facility] External Department Unsolicited Start: 07-04-2024 End: 07-04-2024 Clinisync Result Encounter Cole Celeste DO Work Phone: [facility] External Department Unsolicited Start: 06-07-2024 End: 06-07-2024 ambulatory [facility]este Nurse [facility] Comment on above: GA: 8w6d Start: 06-01-2024 End: 06-01-2024 ambulatory Anthony Gomez Facility:[facility] Start: 05-28-2024 End: 05-28-2024 Emergency department patient visit Evonne Cheung Facility:[facility] Start: 05-28-2024 End: 05-28-2024 ambulatory Spenser Tellez PAC Facility:[facility] Start: 05-08-2024 End: 05-08-2024 Bamboo flowsheet Cole [...] encounter procedure Kenya Richter DDS Work Phone: [facility] Comment on above: Abnormal tooth erupt ion (Primary Dx); Impacted third molar tooth Start: 04-24-2024 ambulatory KENYA RICHTER Facili ty:[facility] Start: 03-14-2024 End: 03-14-2024 ambulatory COLE R CELESTE Facility:[facility] Start: 02-14-2024 End: 02-14-2024 ambulatory [facility] Facility:[facility] Start: 01-17-2024 End: 01-17-2024 ambulatory COLE R [facility] Facility:[facility] Start: 12-16-2023 End: 12-16-2023 ambulatory Anthony Gomez Facility:[facility] Start: 11-19-2023 End: 11-19-2023 Emergency department patient visit Anthony Gomez Facility:[facility] Start: 11-03-2023 End: 11-03-2023 ambulatory COLE CELESTE Not Available Start: 10-28-2023 End: 10-28-2023 ambulatory Anthony Santo Jason Facility:[facility] Start: 10-06-2023 End: 10-06-2023 Office outpatient new 20 minutes Cole Celeste DO Work Phone: [facility] Comment on above: Irregular periods/me nstrual cycles; PCOS (polycystic ovarian syndrome); Insulin resistance Procedures Date Procedure Procedure Detail Performing Clinician Start: 09-10-2024 [facility] DRUG SCREEN RAPI D (URINE) Cole [...] 2) Shingles (RZV) Vaccine (1 of 2) [facility] Start: 10-22-2024 End: 10-22-2024 Patient encounter procedure 10/22/2024 2:50 PM EST Routine [facility] [address] [place] [address] Cole Alonso DO [address] [place] [address] [facility] Start: 10-18-2024 End: 10-18-2024 Patient encounter procedure 10/18/2024 1:00 PM EST Appointment [facility] [address] [address] [place] [address] [facility] Start: 10-08-2024 End: 10-08-2025 CBC panel - Blood by Automated count CBC Lab Routine Diabetes mellitus screening Expected: 10/08/2024 (Approximate), Expires: 10/08/2025 [facility] Work Phone: Comment on above: Expected: 10/08/2024 (Approximate), Expires: 10/08/2025 Start: 10-08-2024 End: 10-08-2025 Measurement of glucose 1 hour after glucose challenge for glucose tolerance test Glucose tolerance, 1 hour Lab Routine Diabetes mellitus screening Expected: 10/08/2024 (Approximate), Expires: 10/08/2025 [facility] Comment on above: Expected: [...] procedure 09/10/2024 2:00 PM EST Routine [facility] [address] [place] [address] Cole Alonso, [address] [place], [place] [id number] [facility] Start: 09-10-2024 End: 09-10-2024 Professional / ancillary services management 09/10/2024 1:00 PM EST Ancillary Procedure [facility] [address] [place] [address] [facility] Start: 08-08-2024 End: 02-06-2025 Alpha fetoprotein, maternal Alpha fetoprotein, maternal Lab Routine Second trimester 17 weeks gestation of Expected: 08/08/2024 (Approximate), Expires: 02/06/2025 [facility] Comment on above: Expected: 08/08/2024 (Approximate), Expires: 02/06/2025 Start: 08-08-2024 End: 08-08-2025 Measurement of glucose 3 hours after glucose challenge for glucose tolerance test Glucose tolerance, 3 hours Lab Routine Elevated glucose tolerance test Expected: 08/08/2024 (Approximate), Expires: 08/08/2025 [facility] Comment on above: Expected: 08/08/2024 (Approximate), Expires: 08/08/2025 Start: 08-08-2024 End: 08-08-2025 US for US OB ANATOMY SINGLE W US OB CERVICAL LENGTH Imaging Routine Screening, , for anatomic survey Expected: 08/08/2024 (Approximate), Expires: 08/08/2025 [facility] Comment on above: Expected: 08/08/2024 (Approximate), Expires: 08/08/2025 Start: 08-08-2024 End: 08-08-2024 Patient encounter procedure [facility] Comment on above: Arrived Start: 07-10-2024 End: 07-10-2025 Measurement of glucose 1 hour after glucose challenge for glucose tolerance test Glucose tolerance, 1 hour Lab Routine Diabetes mellitus screening Expected: 07/10/2024 (Approximate), Expires: 07/10/2025 [facility] Work Phone: Comment on above: Expected: 07/10/2024 (Approximate), Expires: 07/10/2025 Start: 07-10-2024 End: 07-10-2024 Patient encounter procedure [facility] Comment on above: Arrived Start: 07-04-2024 End: 07-04-2024 Patient encounter procedure 07/04/2024 3:00 PM EDT Office Visit [facility] [address] [place], [place] [id number] Kenya Richter, DDS [address] [place], [place] [phone] [facility] Start: 06-07-2024 End: 06-07-2025 ABO/Rh ABO/Rh Lab Routine Missed menses , unspecified gestational age Expected: 06/07/2024 (Approximate), Expires: 06/07/2025 [facility] Comment on above: Expected: 06/07/2024 (Approximate), Expires: 06/07/2025 Start: 06-07-2024 End: 06-07-2025 Blood type and Indirect antibody screen panel - Blood Type and screen Lab Routine Missed menses , unspecified gestational age Expected: 06/07/2024 (Approximate), Expires: 06/07/2025 [facility] Work Phone: Comment on [...] Initial [facility] [address] [place] [id number] [facility] Start: 06-07-2024 End: 06-07-2024 Professional / ancillary services management 06/07/2024 12:30 PM EDT Ancillary Procedure [facility] [address] [place] [phone] [facility] Start: 06-05-2024 Influenza vaccination Influenza Vacc ine (#1) [facility] Start: 05-08-2024 End: 05-08-2024 Patient encounter procedure 05/08/2024 11:20 AM EDT Office Visit [facility] [address] [place] [address] Cole Alonso, DO [address] [place] [address] Arrived [facility] Comment on above: Arrived Start: 05-06-2024 Influenza vaccination Influenza Vacc ine [facility] Start: 11-03-2023 End: 11-03-2023 Patient encounter procedure 11/03/2023 8:30 AM EST Office Visit [facility] [address] [place] [phone] Cole Alonso, DO [address] [place] [address] [facility] Start: 10-17-2023 End: 10-17-2023 Professional / ancillary services management 10/17/2023 8:30 AM EST Ancillary Procedure [facility] [address] [place] [address] [facility] Start: 05-06-2023 COVID-19 Vaccine ( season) COVID-19 Vaccine ( season) [facility] Start: 2019 Screening for malign ant neoplasm of cervix Pap Smear [facility] Start: 2017 DTaP,Tdap and Td Vaccines (1 - Tdap) DTaP,Tdap and Td Vaccines (1 - Tdap) [facility] Start: 2017 Hepatitis A (HAV) Vaccine (optional start 19+ years) Hepatitis A (HAV) Vaccine (optional start 19+ years) [facility] Start: 2017 Hepatitis B vaccination Hepati tis B (HBV) Vaccine (1 of 3 - 19+ 3-dose series) [facility] Start: 2016 Adult BMI Screening Adult BMI Screen ing [facility] Start: 2016 Hepatitis C screening Hepatitis C An tibody [facility] Start: 2016 Tetanus + diphtheria + acellular pertussis vaccine (product) Tdap Booster [facility] Start: 2013 Vaccination for volodymyr n papillomavirus HPV Vaccine (1 - 3-dose series) [facility] Start: 2010 Depression Screening Depression Scre ening [facility] Start: 2010 Tobacco Screening Tobacco Screening [facility] Antimullerian hormon e (AMH) Antimullerian hormone (AMH) Lab Routine Irregular periods/menstrual cycles Ordered: 10/06/2023 [facility] Comment on above: Ordered: 10/06/2023 Bacteria identified in Urine by Culture Urine culture Microbiology Routine Missed menses Ordered: 06/07/2024 [facility] Comment on above: Ordered: 06/07/2024 CBC W Auto Different ial panel - Blood CBC and differential Lab Routine PCOS (polycystic ovarian syndrome) Ordered: 10/06/2023 [facility] Comment on above: Ordered: 10/06/2023 CBC W Auto Different ial panel - Blood CBC and differential Lab Routine Missed menses , unspecified gestational age Ordered: 06/07/2024 [facility] Comment on above: Ordered: 06/07/2024 CHLAMYDIA TRACHOMATI S (GENITO/STI) CHLAMYDIA TRACHOMATIS (GENITO/STI) Lab Routine STD exposure Ordered: 08/08/2024 [facility] Comment on above: Ordered: 08/08/2024 Cytology Cervical or vaginal smear or scraping study Pap Smear Pathology and Cytology Routine Well woman exam with routine gynecological exam Ordered: 08/08/2024 [facility] Comment on above: Ordered: 08/08/2024 DHEA DHEA Lab Routine PCOS (polycystic ovarian syndrome) Ordered: 10/06/2023 [facility] Comment on above: Ordered: 10/06/2023 DHEA-sulfate DHEA-sulfate Lab Routine PCOS (polycystic ovarian syndrome) Ordered: 10/06/2023 [facility] Comment on above: Ordered: 10/06/2023 Follicle stimulating hormone Follicle stimulating hormone Lab Routine PCOS (polycystic ovarian syndrome) Ordered: 10/06/2023 [facility] Comment on above: Ordered: 10/06/2023 hCG, quantitative, hCG, quantitative, Lab Routine PCOS (polycystic ovarian syndrome) Ordered: 10/06/2023 [facility] Work Phone: Comment on above: Ordered: 10/06/2023 Hemoglobin A1c measurement Hemoglobin A1c Lab Routine Irregular periods/menstrual cycles Ordered: 10/06/2023 [facility] Comment on above: Ordered: 10/06/2023 Hemoglobin A1c/Hemoglobin.total in Blood Hemoglobin A1c Lab Routine Missed menses , unspecified gestational age Ordered: 06/07/2024 [facility] Comment on above: Ordered: 06/07/2024 Hepatitis B virus surface Ag [Presence] in Serum or Plasma by Immunoassay Hepatitis B surface antigen Lab Routine Missed menses , unspecified gestational age Ordered: 06/07/2024 [facility] Comment on above: Ordered: 06/07/2024 Hepatitis C virus Ab [Presence] in Serum or Plasma by Immunoassay Hepatitis C antibody Lab Routine Missed menses , unspecified gestational age Ordered: 06/07/2024 [facility] Comment on above: Ordered: 06/07/2024 HIV-1/HIV-2 antigen/antibody combination immunoassay HIV-1 and HIV-2 antibodies Lab Routine Missed menses , unspecified gestational age Ordered: 06/07/2024 [facility] Comment on above: Ordered: 06/07/2024 Luteinizing hormone Luteinizing hormone Lab Routine PCOS (polycystic ovarian syndrome) Ordered: 10/06/2023 [facility] Comment on above: Ordered: 10/06/2023 Neisseria gonorrhoea e DNA [Presence] in Unspecified specimen by ISHA with probe detection Neisseria gonorrhea DNA probe, direct Lab Routine STD exposure Ordered: 08/08/2024 [facility] Comment on above: Ordered: 08/08/2024 Reagin Ab [Presence] in Serum by RPR RPR Lab Routine Missed menses , unspecified gestational age Ordered: 06/07/2024 [facility] Comment on above: Ordered: 06/07/2024 Rubella antibody, IgG Rubella an tibody, IgG Lab Routine Missed menses , unspecified gestational age Ordered: 06/07/2024 [facility] Comment on above: Ordered: 06/07/2024 SURESWAB(R) ADVANCED VAGINITIS PLUS, TMA SURESWAB(R) ADVANCED VAGINITIS PLUS, TMA Pathology and Cytology Routine Vaginal discharge Ordered: 08/08/2024 [facility] Work Phone: Comment on above: Ordered: 08/08/2024 Thyrotropin [Units/volume] in Serum or Plasma TSH Lab Routine PCOS (polycystic ovarian syndrome) Ordered: 10/06/2023 [facility] Comment on above: Ordered: 10/06/2023 Thyroxine (T4) free [Mass/volume] in Serum or Plasma T4, free Lab Routine PCOS (polycystic ovarian syndrome) Ordered: 10/06/2023 [facility] Comment on above: Ordered: 10/06/2023 US for US PELVIS-TRANS VAG IF INDICATED Imaging Routine PCOS (polycystic ovarian syndrome) Ordered: 10/06/2023 [facility] Comment on above: Ordered: 10/06/2023 Payers Date Payer Category Payer Medicaid [id number] 2022 Medicaid [id number] 1998 Unknown [id number] 2.16. [id number] 1998 Unknown [id number] 2.16.8 40.1.785305.3.579.2. 1998 Unknown [id number] 2.16.8 40.1.850853.3.579.2. 1998 Unknown [id number] 2.16.8 40.1.210947.3.579.2. 1998 Unknown [id number] 2.16.8 40.1.247344.3.579.2. 1998 Unknown [id number] 2.16.8 40.1.347994.3.579.2. 1998 Unknown [id number] 2.16.8 40.1.038643.3.579.2. 1998 Unknown [id number] 2.16.8 40.1.809963.3.579.2. 1998 Unknown [id number] 2.16.8 40.1.652043.3.579.2. 1998 Unknown [id number] 2.16.8 40.1.662222.3.579.2. 1998 Unknown [id number] 2.16.8 40.1.338858.3.579.2. 1998 Unknown [id number] 2.16.8 40.1.379598.3.579.2. 1998 Unknown [id number] 2.16.8 40.1.880227.3.579.2. 1998 Unknown [id number] 2.16. 840.1.421404.3.579.2.1285 1998 Unknown [id number] 2.16.84 0.1.019527.3.579.2.1258 1998 Unknown [id number] 2.16.84 0.1.822598.3.579.2.1258 1998 Unknown [id number] 2.16.84 0.1.294583.3.579.2.1258 1998 Unknown [id number] 2.16.84 0.1.818427.3.579.2.1259 1998 Unknown [id number] 2.16.84 0.1.542174.3.579.2.1259 1998 Unknown [id number] 2.16.84 0.1.291003.3.579.2.1259 1998 Unknown [id number] 2.16.84 0.1.492473.3.579.2.1259 1998 Unknown [id number] 2.16.84 0.1.223373.3.579.2.1259 1998 Unknown [id number] 2.16.84 0.1.982416.3.579.2.1259 Social History Date Type Detail Facility Start: 09-15-2023 End: 10-15-2024 Tobacco smoking status AZIS Ex-smoker [facility] History of tobacco use [...] Sex Assigned At Not on file N [facility] Tobacco smoking stat [facility] Tobacco smoking consumption unknown [facility] Start: 05-08-2024 End: 10-15-2024 Tobacco use and exposure Smokeless tobacco non-user [facility] Start: 04-20-2024 [facility] Start: 10-15-2024 Alcoholic beverage intake Ex-drinker (finding) [facility] Unknown [facility] Start: 12-03-2019 Sex Female (finding) [facility] Clinical Notes 10-06-2023 to 10-08-2024 [...] 50 lozenge(s), 0 Refill(s), 10/16/24 8:59:00 AM HEMATOLOGIST, Pharmacy: [facility] [id number], 1 lozenge(s) Oral 5x/Day,x10 day(s), 170.18, cm, [...] of: NITISH Rojas documented in this encounter [facility] 10-06-2024 Note Patient Education Ma terials Follows: [...] Follow these instructions at home: ? Take qobn-bzo-hnufqtp and prescription medicines only as told by [...] provider. Document Revised: 11/30/2021 Document Reviewed: 11/30/2021 [employer] Patient Education ? 2023 [employer] Infectious Disease Oral Thrush, Adult Oral [...] difficulty fighting infection (more content not included)... [facility] 09-24-2024 Note Patient Education Ma terials Follows:Disease [...] these instructions at home: Medicines ? Take mnyv-cbn-sdlulsh and prescription medicines only as told by [...] and water are not available, use hand telesales advisor. ? Do not touch your eyes, nose, [...] may represent a (more content not included)... [facility] 09-10-2024 History of Presen t illness Narrative [...] nursing note reviewed. Exam conducted with a cold mill inspector present. Vitals: Estimated body mass index is [...] Cole Alonso DO documented in this encounter [facility] 08-08-2024 History of Presen t illness Narrative [...] Cole Alonso DO documented in this encounter [facility] 07-10-2024 History of Presen t illness [...] nursing note reviewed. Exam conducted with a cold mill inspector present. Vitals: Estimated body mass index is [...] or undercooked meat, and stay away from [facility]. Patient has been consulted regarding any [...] Cole Alonso DO documented in this encounter [facility] 07-05-2024 Note Patient Education Ma terials [...] and use condoms. General instructions ? Take cqyn-hee-ctpupgq and prescription medicines only as told by [...] provider. Document Revised: 02/19/2021 Document Reviewed: 02/19/2021 [employer] Patient Education ? 2023 [employer]. [facility] 06-07-2024 History of Presen t [...] both done at the same time at [facility] at 10 weeks . Pt desires zofran due to nausea in this . Follow Up: Patient is to have labs drawn at directed and return to office for initial OB appointment with provider. Patient may call office as needed with any concerns or questions. Nurse Visit Completed by: Bernadette Reeder MA documented in this encounter [facility] 05-28-2024 Note Education Materials Orthopedics Muscle [...] not too tight. General instructions ? Take xwmd-pll-yaoxsqt and prescription medicines only as told by [...] provider. Document Revised: 11/09/2021 Document Reviewed: 11/09/2021 [employer] Patient Education ? 2023 [employer]. Sciatica Sciatica is pain, weakness, tingling, or [...] (pelvis). ? . (more content not included)... [facility] 05-28-2024 Note Patient Education Materials Foll ows: [facility] 05-08-2024 History of Presen t illness Narrative [...] Cole Alonso DO documented in this encounter [facility] 04-24-2024 History of Presen t illness Narrative Images from the original note were not included. documented in this encounter [facility] 11-19-2023 Note Education Materials Caregiving Sterile [...] and water are not available, use hand telesales advisor. ? Change your dressing as told by [...] these instructions at home: Medicines ? Take hnlk-igh-dcmtggk and prescription medicines only as told by [...] C. This informatio (more content not included)... [facility] 10-06-2023 History of Presen t [...] nursing note reviewed. Exam conducted with a cold mill inspector present. Vitals: Estimated body mass index is [...] PCOS/insulin resistance and medication was sent to [facility] in [place]. Documented by Rose Latham LPN on behalf [...] encounter [facility]ructionsNot on filedocumented in this encounterTriHealth Summary Purpose Family History No Family History [...] third molar tooth Kenya Richter, DDS [address] [place] [address] Referral ID Status Reason Start Date Expiration Date V isits Requested Visits Authorized [id number] Pending Review 04/24/2024 04/24/2025 1 1 Scheduling [...] your procedure, you will be contacted with [id number] costs or next steps. All self-pay payments [...] the procedure: You also MUST have a transport truck driver/escort >18yrs old present to take [...] section and content) DATE CREATED AUTHOR 01/08/2022 [facility] DATE CREATED AUTHOR AUTHOR'S ORGANIZ ATION 09/23/2024 [facility] DATE CREATED AUTHOR AUTHOR'S ORGANIZ ATION 10/13/2024 [facility] DATE CREATED AUTHOR AUTHOR'S ORGANIZ ATION 10/20/2024 [facility] DATE CREATED AUTHOR AUTHOR'S ORGANIZ ATION 10/23/2024 [facility]IC Reason for Visit (unrecogniz ed section and content) Reason Comments Discuss cycles Reason Comments Amenorrhea Reason Comments Routine Visit Reason Comments Well Women Visit Routine Visit STI Screening Reason Comments Abdominal Pain Care Teams (unrecognized sec tion and content) Vegetable Canner Relationship Specialty Start Date End Date Anthony Gomez MD [address] [place] [address] PCP - General Pediatrics 10/06/23 Vegetable Canner Relationship Specialty Start Date End Date Anthony Gomez MD [address] [place], [place] [phone] PCP - General Pediatrics 10/06/23 Vegetable Canner Relationship Specialty Start Date End Date Anthony Gomez MD [address] [place], [place] [phone] PCP - General Pediatrics 10/06/23 Vegetable Canner Relationship Specialty Start Date End Date Anthony Gomez MD [address] [place] [address] PCP - General Pediatrics 10/06/23 Vegetable Canner Relationship Specialty Start Date End Date Anthony Goemz MD [address] [place] [address] PCP - General Pediatrics 10/06/23 Vegetable Canner Relationship Specialty Start Date End Date Anthony Gomez MD [address] [place] [address] PCP - General Pediatrics 10/06/23 Vegetable Canner Relationship Specialty Start Date End Date Anthony Gomez MD [address] [place] [address] PCP - General Pediatrics 10/06/23 Vegetable Canner Relationship Specialty Start Date End Date Anthony Gomez MD [address] [place] [id number] PCP - General Pediatrics 10/06/23 Vegetable Canner Relationship Specialty Start Date End Date Anthony Gomez MD [address] [place] [id number] PCP - General Pediatrics 10/06/23 Vegetable Canner Relationship Specialty Start Date End Date Anthony Gomez MD [address] [place] [id number] PCP - General Pediatrics 10/06/23 Vegetable Canner Relationship Specialty Start Date End Date Anthony Gomez MD [address] [place] [id number] PCP - General Pediatrics 10/06/23 Vegetable Canner Relationship Specialty Start Date End Date Anthony Gomez MD [address] [place] [id number] PCP - General Pediatrics 10/06/23 FOR RECORDS [...] BE BASED ON THE PRIMARY CLINICAL RECORDS. [facility] [employer] [facility]. provides no warranty or guarantee of the accuracy or completeness of information in this document.
[2024-10-24 14:31] LABS: Anion Gap 12.5; BUN Creatinine Ratio 10.7; Calcium 8.8 mg/dL (8.5-10.1); Carbon Dioxide 27.1 mmol/L (21.0-32.0); Chloride 103 mmol/L (98-107); Estimated GFR (African America >60 (>=60 mL/min/1.73m^2); Estimated GFR (Non-African Ame >60 (>=60 mL/min/1.73m^2); Free T3 2.18 pg/mL (2.18-3.98); Glucose 123 mg/dL (74-106); Magnesium 1.4 mg/dL (1.8-2.4); Potassium 3.6 mmol/L (3.5-5.1); Sodium 139 mmol/L (136-145); Thyroid Stimulating Hormone 1.183 uIU/mL (0.358-3.740)
== END 2024-10-24 12:40 | disposition home or self-care (01) ==
PROVIDERS: PCP Family Medicine; Visit Provider Internal Medicine Cardiovascular Disease
DX: R00.2 Palpitations (principal); Z13.1 Encounter for screening for diabetes mellitus; R00.0 Tachycardia, unspecified
CPT/HCPCS: 36415; 80048; 82950; 83735; 84443; 84481; 85025

== ENCOUNTER 2024-11-08 13:48 | Outpatient (OUT) | payer MEDICAID, SELFPAY ==
--- NOTE | 2024-11-08 14:00 | CA_ITS ---
Patient Name: SHERLY ERICKSON MR#: [id number] : 2000 Exam Date: 11/08/2024 Ordering Doctor: DR JACKIE FOREMAN . ECHOCARDIOGRAM REPORT PROCEDURE: CA ECHO DOPPLER COMPLETE INDICATIONS: Shortness of breath in (30 weeks), rapid heart beat COMPARISON: None. DESCRIPTION: COMPLETE ECHOCARDIOGRAM Real-time transthoracic echocardiography with 2D, M-mode, spectral and color flow Doppler performed. QUALITY: Technical quality was good. LEFT VENTRICLE: Normal chamber size. Normal left ventricular wall thickness. Normal systolic function. LV EF: Normal left ventricular ejection fraction, (55%). DIASTOLIC: Normal diastolic function. ATRIAL SEPTUM: LEFT ATRIUM: Normal chamber size. RIGHT ATRIUM: Normal chamber size. RIGHT VENTRICLE: Normal chamber size. Normal right ventricular systolic function. TRICUSPID VALVE: Normal mobility and thickness. No stenosis with trivial regurgitation. Doppler studies reveal mildly (35-45) elevated right sided pressures. RVSP 35 mmHg MITRAL VALVE: Normal mobility and thickness. No evidence of mitral valve stenosis. There is no mitral annular calcification. Trivial mitral regurgitation. AORTIC VALVE: Normal, measuring appearance. No visible sclerosis. Normal leaflet mobility. No evidence of aortic valve stenosis. No aortic regurgitation. AORTIC ROOT: Normal diameter and appearance 2.9 cm. Ascending aorta is normal in size, measuring 2.6 cm. PULMONIC VALVE: Normal thickness and mobility. No stenosis. Trivial regurgitation. PERICARDIUM: No evidence of pericardial effusion. IVC: Collapses with inspirations. IVC is normal in size. PLEURA: CONCLUSION: 1. Normal ventricular size and systolic function. Estimated LVEF is 55%. 2. Normal diastolic function. 3. No significant valvular dysfunction. 4. Mildly elevated right sided pressures. 5. No pericardial effusion. Adult Echocardiography Procedure Report Left Ventricle LVEDD (3.7 - 5.6 cm): 5.22 cm LVESD (2.2 - 4.0 cm): 3.89 cm LVIVS thickness (0.6 - 1.2 cm): 0.77 cm LVPW thickness (0.5 - 1.0 cm): 0.77 cm e': 0.12 m/s E - e': 5.61 LVOT Max Gradient: 2.97 mm[Hg] LVOT Area (cm2): 0.86 m/s Peak Velocity (LVOT): 0.86 m/s Mean Velocity (LVOT): 0.60 m/s LVOT Diameter 2.27 cm Left Atrium LA Volume Index (2D A2C): 23.75 ml/m2 Left Atrium Systolic Dimension: 4.19 cm Mitral Valve MV E to A Ratio: 1.42 Mitral Valve A-Wave Peak Velocity: 0.48 m/s Mitral Valve E-Wave Peak Velocity: 0.68 m/s Right Ventricle Aorta AO Root Diam: 2.95 cm Ascending Ao Diam: 2.60 cm Aortic Valve AoV Area (Peak Hipolito): 2.68 cm2, 2.68 cm2 AoV Area (VTI): 2.69 cm2, 2.69 cm2 Peak Velocity(Antegrade Flow): 1.30 m/s Peak Gradient(Antegrade Flow): 6.73 mm[Hg] Mean Velocity(Antegrade Flow): 0.88 m/s Mean Gradient(Antegrade Flow): 3.52 mm[Hg] Velocity Time Integral: 25.97 cm Tricuspid Valve Peak Velocity (Regurgitant Flow): 2.82 m/s Pulmonic Valve Mean Gradient: 1.88 mm[Hg] Mean Velocity: 0.63 m/s Peak Velocity: 0.98 m/s, 0.98 m/s Peak Gradient: 3.81 mm[Hg], 3.81 mm[Hg] Right Atrium Right Atrium Systolic Pressure: 25.66 ml, 25.66 ml Dictated by: Pavan Richardson M.D. on 11/08/2024 at 18:34 Approved by: Pavan Richardson M.D. on 11/08/2024 at 18:39
--- OUTSIDE RECORDS SUMMARY | 2024-11-08 14:06 | XMS_ITS | CCD ---
Author Organization [facility] Care Team Providers Care Cellular Equipment Repairer Name Role Phone Anthony Gomez MD Primary Care Provider Unavailable Primary Care Provider UnavailKENYA Gonzales Attending Unavailable PROVIDER, UNKNOWN Admitting Unavailable Unavailable Primary Care Provider UnavailCOLE Babin R Referring Unavailable Anthony Gomez Primary Care Unavailable Le, Sreedhar K Admitting Unavailable Le Sreedhar K Attending Unavailable Anthony Gomez Primary Care Unavailable CELESTE, COLE R Admitting Unavailable CELESTE, COLE R Attending Unavailable Anthony Gomez Primary Care Unavailable CELESTE, COLE R Admitting Unavailable CELESTE, COLE R Attending Unavailable Anthony Gomez Primary Care Unavailable CELESTE, COLE R Attending Unavailable CELESTE, COLE R Admitting Unavailable Anthony Gomez Primary Care Unavailable CELESTE, COLE R Attending Unavailable CELESTE, COLE R Admitting Unavailable Anthony Gomez Primary Care Unavailable Tellez PAC, Spenser Gallegos Attending Unavailable Tellez PAC, Spenser N Admitting Unavailable Tellez PAC, Spenser Gallegos Attending Unavailable Tellez PAC, Spenser N Admitting Unavailable Anthony Gomez Primary Care Unavailable Anthony Gomez Primary Care Unavailable Anthony Gomez Attending Unavailable Anthony Gomez Primary Care Unavailable Reza, Larissa Y Attending Unavailable Reza, Larissa Y Admitting Unavailable Anthony Gomez Primary Care Unavailable Anthony Gomez Attending Unavailable Anthony Gomez Primary Care Unavailable Evonne Cheung Attending Unavailable Evonne Cheung Admitting Unavailable Anthony Gomez Primary Care Unavailable CELESTE, COLE R Admitting Unavailable CELESTE, COLE R Attending Unavailable Anthony Gomez Primary Care Unavailable Reza, Larissa Y Attending Unavailable Reza, Larissa Y Admitting Unavailable ANGEL LUIS EVANS Attending Unavailable EMILY LUNDY Attending Unavailable CELESTE, COLE Attending Unavailable EMILY LUNDY Attending Unavailable CELESTE, COLE Attending Unavailable CELESTE, COLE Attending Unavailable CELESTE, COLE Attending Unavailable CELESTE, COLE Attending Unavailable Allergies Allergy Classification Reported Allergen(s) Allergy Type Date of Onset Reaction(s) Facility (1 source) No Known Medication Allergies; Translations: [No Known Medication Allergies] Propensity to adverse reactions to drug (disorder) [facility] Repository Medications Current Medications Medication Drug [...] mg before bedtime. 0 09/30/2023 10/10/2023 Active aspirin 81 mg delayed release oral tablet (2 sources) Platelet Aggregation Inhibitor, Nonsteroidal Anti-inflammatory Drug take 1 tablet by mouth in the morning aspirin 81 MG EC tablet Take 81 mg by mouth in the morning. Active ketoconazole 20 mg/ml topical cream (2 sources) Azole Antifungal Start: 10-25-2024 ketoconazole (NIZOral) 2 % cream 10/25/2024 Active 24 hr metFORMIN hydrochloride 500 mg [...] Active ondansetron 4 mg disintegrating oral tablet (13 sources) Serotonin-3 Receptor Antagonist Start: 06-07-2024 End: [...] graciela th every six hours as needed ondansetron (Zofran) 4 MG tablet Take 4 mg by mouth every 6 (six) hours if needed Active Completed/Discontinued Medications Medication Drug Class(es) Dates Sig (Normalized) Sig (Original) clotrimazole 10 mg oral lozenge (5 sources) Azole Antifungal Start: 10-06-2024 End: 10-22-2024 clotrimazole (Mycelex) 10 MG jacob 1 lozenge(s), Oral, 5x/Day, x 10 day(s), # 50 lozenge(s), 0 Refill(s), 10/16/24 8:59:00 AM TAX ASSOCIATE, Pharmacy: [facility] [id number], 1 lozenge(s) Oral 5x/Day,x10 day(s), 170.18, cm, 10/06/24 9:22:00 EST, Height, 118.39, kg, 10/06/24 9:24:00 EST, Weight Dosing 10/06/2024 10/22/2024 Discontinued take 1 tablet by mouth five time s daily clotrimazole (MYCELEX) 10 mg jacob Dissolve 1 tablet (10 mg total) in the mouth 5 (five) times a day. Active nitrofurantoin, macrocrystals 25 mg / nitrofurantoin, monohydrate 75 mg oral capsule (3 sources) Nitrofuran Antibacterial Start: 07-02-2024 End: 07-10-2024 take 1 capsule by mouth in the morning nitrofurantoin, macrocrystal-monohydrate, (Macrobid) 100 MG capsule Indications: UTI symptoms [...] or test findings] Onset: 11-03-2023 11-03-2023 Episodic Cardiac dysrhythmias (2 sources) Tachycardia, unspecified; Translations: [Tachycardia, unspecified] Onset: 10-24-2024 Episodic Diabetes mellitus without complication (2 sources) [...] care or not applicable] 06-07-2024 Episodic Other complications of (4 sources) Excessive growth affecting management of mother; Translations: [Maternal care for excessive growth, third trimester, not applicable or unspecified] 10-22-2024 Episodic Other endocrine disorders (20 sources) Polycystic ovary syndrome; Translations: [Polycystic ovarian syndrome] Onset: 11-28-2023 10-06-2023 Chronic Other female genital disorders (2 sources) Vaginal discharge; Translations: [Other specified noninflammatory disorders of vagina] 08-08-2024 Episodic Other nutritional; endocrine; and metabolic disorders (20 sources) Insulin resistance; Translations: [Insulin resistance] Onset: 11-03-2023 10-06-2023 Chronic Other and delivery including normal (18 sources) ; Translations: [Encounter for supervision of [...] [26 weeks gestation of ] 10-08-2024 Episodic Residual codes; unclassified (2 sources) Gestation period, 28 weeks; Translations: [28 weeks gestation of ] 10-22-2024 Episodic Residual codes; unclassified (2 sources) Gestation period, 30 weeks; Translations: [30 weeks gestation of ] 11-06-2024 Episodic Past or Other Problems Problem Classification Problem Date Documented Da te Episodic/Chronic Disorders of teeth and jaw (4 sources) Tooth eruption disorder; Translations: [Disturbances in tooth eruption] Onset: 04-24-2024 04-24-2024 Episodic Results Test Name Value Interpretation Reference Range Facility Urinalysis macro (dipstick) panel (U)on 11-06-2024 Bilirubin, UA Negative Negative - 4(70) +++ mg/dL [facility] Blood, UA Negative Negative - 50 Osvaldo/mcL [facility] Clarity, UA Clear [facility] Color, UA Yellow [facility] Glucose, UA Negative Negative - 1999(110) ++++ mg/dL [facility] Interpretation and review of laboratory results Normal [facility] Ketones, UA Negative Negative - 160(16) ++++ mg/dL [facility] Leukocytes, UA Negative Negative - 500+++ Edison/mcL [facility] Nitrite, UA Negative Negative - Positive [facility] pH, UA 6.5 5 - 9 [facility] Protein, UA Negative Negative - 2000(20) ++++ mg/dL [facility] Spec Grav, UA 1.02 1 - 1.03 [facility] Urobilinogen, UA 0.2 0.2 - 12 mg/dL [facility] Office/Clinic Noteon 025 Office/Clinic Note Patient: SHERLY ASTUDILLO Age: 24 years Sex: FEMALE : 2000 Associated Diagnoses: Tinea corporis; Tinea corporis; Eustachian tube dysfunction Author: Anthony Gomez MD A History of Present Illness 24-year-old female who is currently 25 weeks presents today with complaints of diminished hearing in her right ear. Denies any pain. She was recently seen in the urgent care and treated with an antibiotic for otitis media on the left. That has resolved. She is now noticing diminished hearing but no pain no drainage. She is having continued nasal congestion. But overall is feeling better. She also has a rash in her right axillary region. It does itch. No change in laundry detergent, soap, cream. She has not been shaving her armpits. No rash on the left. Review of Systems Constitutional: Negative. Ear/Nose/Mouth/Throat: Negative except as documented in history of present illness. Respiratory: Negative. Cardiovascular: Negative. Integumentary: Negative except as documented in history of present illness. Health Status Allergies: Allergic Reactions (Selected) No Known Medication Allergies, Allergies (1) Active Severity Reaction No Known Medication Allergies None Documented Current medications: (Selected) Prescriptions Prescribed ketoconazole 2% topical cream: 1 zoran, Topical, Daily, for 10 day(s), 30 gm, 0 Refill(s) Documented Medications Documented Multivitamin: 1 tab, Oral, Daily Physical Examination Vital Signs 10/25/2024 13:28 EST Peripheral Pulse Rate 81 bpm Systolic Blood Pressure 120 mmHg Diastolic Blood Pressure 80 mmHg BP Site Left arm SpO2 100 % Measurements from flowsheet : Measurements 10/25/2024 13:28 EST Height 170.18 cm Height/Length Measured (inches) 67 in Weight 124.01 kg Weight Measured (lbs) 273.395 lb Weight Dosing 124.010 kg Body Mass Index 42.82 kg/m2 [place] Body Weight Calculated 61.6 kg BSA Measured 2.42 m2 General: Alert and oriented, No acute distress. HENT: Auditory canals clear. Slight fluid behind the right as compared to the left. Nonbulging not erythematous. Tympanometry was slightly flat.. Respiratory: Lungs are clear to auscultation, Respirations are non-labored, Breath sounds are equal. Cardiovascular: Normal rate, Regular rhythm, No murmur, Good pulses equal in all extremities. Integumentary: Erythematous patch in right axillary region. No bleeding border. Well-demarcated border. Slight scale noted. Positive satellite lesion. Impression and Plan Diagnosis Tinea corporis (WNQ67-DW B35.4). Plan: Will treat with topical antifungal over the next 7 to 10 days.. Orders Orders Pharmacy: ketoconazole 2% topical cream (Prescribe): 1 zoran, Topical, Daily, for 10 day(s), 30 gm, 0 Refill(s). Orders Evaluation and Management: 35653 Office visit - established pt, Level 3 (Order): 10/25/2024 13:24 EST, Qty: 1, Tinea corporis - Eustachian tube dysfunction. Diagnosis Eustachian tube dysfunction (SJM15-BP H69.90). Course: Discussed with patient most likely some fluid behind her ear. No evidence infection. Continue to just observe.. [Electronically Signed on: 10/25/2024 14:14 EST] Jason MCNEAL, Anthony Santo [Verified on: 10/25/2024 14:14 EST] Anthony Gomez MD [facility] ALL CBC WITH AUTO DIFFon BASOPHILS ABSOLUTE AUTO 0 [facility] Basophils/100 WBC (Bld) 0.3 % 0.2 - 2.0 % [facility] Eosinophils/100 WBC (Bld) 2.1 % 0.9 - 7.0 % [facility] Erythrocyte distribution width (RBC) [Ratio] 14.3 % 11.0 - 15.0 % [facility] Hematocrit (Bld) [Volume fraction] 32.1 % Low 36.0 - 48.0 % [facility] Hemoglobin (Bld) [Mass/Vol] 10.5 g/dL Low 12.0 - 16.0 g/dL [facility] IMMATURE GRANULOCYTES ABS AUTO 0.34 High [facility] Immature granulocytes/100 WBC (Bld) 3.4 % High 0.0 - 0.5 % [facility] Interpretation and review of laboratory results Abnormal [facility] LYMPHOCYTES ABSOLUTE AUTO 2.4 [facility] Lymphocytes/100 WBC (Bld) 24 % 20.5 - 60.0 % [facility] MCH (RBC) [Entitic mass] 27.9 pg 26. 7 - 34.0 pg [facility] MCHC (RBC) [Mass/Vol] 32.7 g/dL 29.9 - 35.2 g/dL [facility] MCV (RBC) [Entitic vol] 85.4 fL 81.0 - 99.0 fL [facility] MONOCYTES ABSOLUTE AUTO 0.4 [facility] Monocytes/100 WBC (Bld) 4.2 % 1.7 - 12.0 % [facility] NEUTROPHILS ABSOLUTE AUTO 6.7 High [facility] Neutrophils/100 WBC (Bld) 66 % 43.0 - 75.0 % [facility] Platelet mean volume (Bld) [Entitic vol] 9 fL Low 9.5 - 13.5 fL [facility]H EO # 0.2 [facility] PLT 332 [facility] RBC 3.76 Low [facility] WBC 10.1 [facility] Healthcare Office Visiton 10-24-2024 Follow-up visit [id number] Sherly Astudillo 2000 F Date Provider Department Center 10/24/2024 [id number] LUIS EVANS Family History Problem Relation Age of Onset Diabetes Mother Diabetes Maternal Grandmother Diabetes Maternal Grandfather Family Status - Relation Status Age at Mother Maternal Grandmother Maternal Grandfather Level of Service:46745 [place] OFFICE/OUTPATIENT NEW MODERATE MDM 45 MINUTES Reason for Visit and Comments: Rapid Heart Rate [736263] - Episodes of tachycardia include lightheadedness and SOB. Denies chest pain. She says sometimes HR gets up to 160's with rest. Problem [296175] - Currently 28 weeks gestation. This is her 2nd . She denies having issues like this during first . Palpitations [463879] Shortness of Breath [934722] Dizziness [029473] Normal [facility] Urinalysis macro (dipstick) panel (U)on 10-22-2024 Bilirubin, UA Negative Negative - 4(70) +++ mg/dL [facility] Blood, UA Negative Negative - 50 Osvaldo/mcL [facility] Clarity, UA Clear [facility] Color, UA Yellow [facility] Glucose, UA Negative Negative - 1999(110) ++++ mg/dL [facility] Interpretation and review of laboratory results Normal [facility] Ketones, UA Negative Negative - 160(16) ++++ mg/dL [facility] Leukocytes, UA Negative Negative - 500+++ Edison/mcL [facility] Nitrite, UA Negative Negative - Positive [facility] pH, UA 7 5 - 9 [facility] Protein, UA Negative Negative - 1999(20) ++++ mg/dL [facility] Spec Grav, UA 1.015 1 - 1.03 [facility] Urobilinogen, UA 0.2 0.2 - 12 mg/dL [facility] C Throaton 10-08-2024 C Throat Normal throat justine isolated No pathogens isolated Normal [facility] Comment on above: Performed By: #### [id number] ####[facility] (DEFAULT)[address] [place] [address] Coding Summaryon 10-08-2024 Coding Summary HTMLBase 64 VkgdwyedQPr5pGp+PGhlYW Q+BK5KQNQdO27lcDMixG5x X5YFBUpXMzlsEEHCVJoMXh DtfdGkAP3hcGNzLDBe IC8+PR9cLEIlRdlomEIzf4 X1pMJ3Z80cjt5uDZbemAV5 NSPyYqDyfoodr9qlkXb4LW cuNmluOyBt YKQlsI39OIO3iK66Ls45aM FyhBVyw7ydfRe5TfQtPDWb CSD3fIbsLUlfy1LtCVTxQ0 8snLVbp4T4 WSEfvUaxgDKrXxGurOP4zM 4uAAbuefohd8hhjuyeIit7 vw66yKEap4J0mBV2M7Vcdx X8JLQueZWa GeqmuKEHxG7qtzoew9xtez ohNyZjUPIzTKi7HFm5KBVo aLgfXoVjBQ47WHK0PQWsxw ZyD1PzDZIy fDctMsD9p1A6Vp2RW9VXLm cmW6WMYNRTTQfdaNY+PC90 ph25L8JlXmdcBzc4NISjFR O2dJR7zH8o ZWClVPqae8V4tCX9U8Mpjl Dipr8yq8keZSEuYOetU38d jCCyp3A8TJNfqMF9IYLopM ajXeDrnV32 Oyc+CLSniYrmj9NbJdhgv4 fmk9gqsPo5HrudQBMaitKn dFikVFZ3l5YsVx6pZJKxkH F6mSI3kM6f LyCzZpR8YFglT608LeLyyE LoQfhpU64nQ9XvbDX+PHRy Ugz7GTDziWjmVS0wL3JyIS RpbmctbGVm wXhkAZ6zHKFlsnsfGIEupJ 8kSSZaY9v7NkZmYfG0LQyv Q2DdPRVuoedhOr43aM7bVo QhXnC9GLfp A5KzhnG8LIAlzFOlZDckTB U6K93tv2U2LOPzTIKbVGW3 sXW6kV0acXwybivaeYQwuO sgdmVydGlj MNipDQmkL422XREfnJhgAz NvZGluZyBEYXRlOiAgMDIv MDMvMjAyNTwvdGQ+PHRkIH Q3bAyaNULz cSOmNKsfDf0owYrwsAraSQ 8aAUCuzbfyXDJkpL9wWITr bZImdDzbQL2zFSMvdsnqw7 21SgTcSTV8 NBWcuNLgI0DubN3jQgFaOZ PcZUXiD9NufAWcQUqdR265 KUykMjI8HCKhnaZxE6PsSK FsaWduOiB0 q6X2Df7Jl0IekmwqQ9GgjX AuPuYoSjdoCDt6J3VkLdij dHI+NU79BRVrPF63DQy5BM J8qAidNNiw HBPeS4JlcA2kAkLiZBOzMK RkOyc+PHRhYmxlIHdpZHRo LYurKOUgBiDdgGbdHY6qQh 9yZGVyLWNv jSogiBKvGgUhq0gvZKJjJL fnZR8kcLtfH2WztZD3HYDe l5u6Jp43F45cY7GomZW+PG LkiFB4lIV8 fP3pZdYtYiW2SClzP203Kx GohJXbSglgx5ytv3fpkSw6 PvC5UTTgxdIuyPsdLWW0k8 SnUg23U69c IHdpZHRoPSIxNSUiIHZhbG nlzf0mmO1sJj5+PGNvbCB3 uCI8sZ3sKeEfRbT0FDdeX5 49InRvcCIv Oydgj6dwo5wbsJg4WfGaOO ArwjXkzEvgSQU3j5CpNn85 T9QbpUhqc4PkQyk9ye94uG Ucf4F2yXW1 I1JlSTNtsyusdKHnpLtjAW 7pUBYffkxkJBFqxO2hETTx Y1e2FvYeBcQ9JTrtQ1Qqzo Y9HGJqvSAx MTKtqNRDmA8gbuwfy8jqlb fcIjCqRZSvOGn0NEj8SOGq kEucJkAxXLA5ErX4DVN6pW TmpC2bqObu owvvvR4vJrv+JPR0fTBtaH MFZS5sCxmulIV+PHRkIHN0 uFhdSFzoPIFmcO8jFZAvY4 v6TfCzItL0 ACkxH3FqtqD9TXTwaHWnGM EcaWZIrK1peykmj7shtjmk DoIwQCXqXOn9NSq1YZAhqX duOiBsZWZ0 OwY0RFW9xOTeaS4yvRidoa nkoA8bUao+QmlydGggRGF0 HXv1D6AkNku8UXDsbZvpQX 0ncGFkZGlu Qz8enGjmxQuhOU6jTMMzed jse708YhCdc0dvMILyvWIx YNctWDI9L43rw1F3MDFrIH XvHNL2nYI3 wK4zjNfvkdsehCLxxFzovj FdqOnfKUrqXPwzZ695PWZu rGssNzRvIMz4J7SyVkn0IK YjyOyzOW9r nCSxIFgsBq6muIzhhBavBQ 4tBVBtpubpt015JxRjw0hf HBPetBYpJIarQYQ3Y05ny8 F0MTAjEHTh HPB6bRQ5nC4wkQyupivsxT VmdDsgdmVydGljYWwtYWxp A180INPhlNjePhEohXz5Q2 SiEsq1QJSj cWmgWK8cnQEbWGgtPn1ycI bufMekJH7fZVMdhjzus880 EfPzs4dvSLVfqHVlVMmqRW G6J45co5C0 AUNuLYNjTEV6uTY7aT7ebV lnbjogbGVmdDsgdmVydGlj FDbhYRfaQ158VBClgNxpNy BhdGllbnQg QXzvNCu7L1GvMlapyTN+PC 12WPHhYY56iURsmXJxk2td zSb0QbHjGNQoRVB0dOfyRH qla8SdHKEw E44czQJnr8C7RTMcvPchiV YqLhFfeXC3nA2qWRuqsmed e3mdrihrNupsf0scga39wZ 88K60dLDnt ZHRoPSIzMCUiIHZhbGlnbj 7ozQ8jUn2+GSTsjWN5fUR2 zJ4oQOLhRnN1BGmtW792Qu RvcCIvPjxj r5dnp6nipRd0CcK4FIQxnx OoqFlnMFJ3j9FhNk27W94x IHdpZHRoPSIyMCUiIHZhbG pfpx8mrQ2p Ii8+KKLmbKK6gCN0wH5sKf YgPoM1ARkpV141JmWboEIl LstpO27bN1XxiYX+PHRyPj o6HTQtkRdj RF8bcKFtNPccFv6dXSL3Of XwWaLyJDvwS4UxHFJlwjut wbooqOW9SJJoOVPrcX91Rx 9udDogMTBw dXNBhX0yiqssm5blnebeWe RjJPZdDUq2PZw7HFSleIdz MbDgRHZ9XhO7KFD7oZDzaO 1hbGlnbjog tZ5fX0BhTGAikwrzHq02mZ 7lCjAdUlW7SGnxPpo+Q1JB I0QOBsHwMDCXGXTDDxOgJB lDSEVMTEU8 O6YiXxc1RFEfrImsZC9mkQ FaBByhZu1vxPbshIthJV8b ZFMnjxpiCREfpB5aKGLdjS JurRqlMK4h UHWqydmsx781AyBpCOK7NV QpxTJvS5FglA8uOrLqPIWm JTCgC6GkbENtPPlwC305HD tlZeJ9IDAn goRuI1WrMVFyzCgvEpG1v9 O2Kn9zBe7tZH8rDLx8YI41 UU70yRVbu8I0vBZ4P3JrTA Rpbmctcmln hPA3HKIhXQGalU71tSEaBX exZl8dp6D4k786LOYqZXOp sD02Bq6bsLisHFCzdTNCaI 6vsctwc6fi rpmcQkIzEOQaVYf6KJt3LP VsjJvtXfXkGSQ0PnH4IWR8 lYUlcD3wpCmvmwzbtZ3hMg c+MjYgWWVh mlP7R5KrYzz5JRItgAfiAH 3qbMDzMIodGw9clYbhtBrt PN2qZTTdinahORFsbY5rFD JvdHRvbTog II5jWSNrtooge198IzWwOZ P2ENNulCMmL7RlwQ1wRoSf XHHiAJLmA1PckTBkWDgaO9 35EByvKqV0 TAQjxgSbM2EsUGTcwYizOn P5m4S0Sb3BYQ6CTKA6P1Mc Bov8ASXgpZoyEO6pvBJpZX lxKv3ggCwc dCgeCV8dFVLawpraUSFtpZ 3kBHXxrDMjrWjfTC1wQFTl ryrum027PiVmVLN3CCZryG PuC0LhoG8g OzBiGCPjRVOoI4QmeWKkMR yuJ446VJayTkC9ZBZgcmPe G6PiTSBwdHzkCqU2s7R0Mn 5PUDwvdGQ+ YW72qe26S2FzIodeRdp6UK CiINI8cQO5eN2qTUApRBss v1O9cMA0T7PgaaSbci8ls7 xsYXBzZTog V71jmELkr9A7TGZhnWS7DQ JlfSjaMmOmbT73Otq+PGNv zDcbs6GiCsfzc2boz2dtxS c5KoIlHYUm mcUzgNbeDSH0m9VuRf27K2 9sIHdpZHRoPSIzMCUiIHZh wFrops5omQ3yJu7+PGNvbC F4qND8gV3p WrAtYqD1ZAbsE848ViMmmZ NoWzmnn8cke9tfmNf0VgLd XRItssNjeIxeGLW7o0SsQt 66U4HrkGvu g8ZcQmm0dt20mDDbk0M8hE J2K9PdXFMqofpdrQIneTzf NV5pTKOqzvdqYPDvhV4rPI NdD6k1WyOr OaB2CZpcJ9UrcmP7ESAisM WdZFKizSNYvI3uuidcp3ny lvgdJoPqBGXgPKa7EBj0VF FsaWduOiBs ZNL9LrI7ZTS2iGDipW1goQ eqevybaT9oNre+YKa4x5gz oFJkZC4ppHG4GE59HE57eV Dud9C2pXS2 E8WyKNIuyvieshtgfYZ7ON YpECDglN55Am5ulYjbAg8k YJAzLJW6LPAfySVmA1SveO 9yOiAjMDAw AIKnM9CnsPObYZzjA705NU ccQjH2KPDabwAuQ0ZjULZn aNhuRdK2f1S4Yz5POH46SK 54EO73eYRf h3D5hYG9U2CdXPFnqcgiar ondIN8TBIyLOPisQ43Lr0h eNuoXo4jWGQnXPZ9WDGonU UmZ0RdlX1a DjMtCFVuILNrU9XsbFUtDL eoD183FDbfBuL6ACZbzpLs C1GqXVStfVqbHpF1v0Z7Gh 7UOw78UQ23 BZ06xBPew7X8sTV4T4CkLN UrmekjbwymrQX9CNFhJTDr xD24Sm3kqGkcHs3hHXOgBS A3VQWviMDt D5TahY0kByDbYGAmRZJmD3 SoxSAoOPznO047QSruDdW4 IKYtdnRsQ3SqORIexDjwEo L1q5R4Lc2X IXtywrh3K9VzWqhkjOH+PC 09EBPzEU03mZEwdOHfl6hv bJv3JpHqOZEmFGJ9sXumBT acz4DfCZMz Y29 (more content not included)... Normal [facility] POCT Rapid Strepon 5 S. pyogenes Ag IA Ql (Unsp spec) Negative Invalid Interpretation Code [facility] Comment on above: Performed By: #### [id number] ####[facility] (DEFAULT)[address] [place] [address] C Throaton 09-26-2024 C Throat Normal throat justine isolated No pathogens isolated Normal [facility] Comment on above: Performed By: #### [id number] #### [facility] (DEFAULT) [address] [place] [id number] Coding Summaryon 09-26-2024 Coding Summary HTMLBase 64 CucirewxWRp7dDz+PGhlYW Q+QW7ABUQoQ02onMRwuW1t I6WCRTzXObhlFAULJDeBIm DbrvVoHA1fyPMeKWMb IC8+UA3lXIGvJhecqGFxt7 R0gOO1A56nzw0iQDgxwMZ4 ILVsWfKehhzui8qdbJo9WT cuNmluOyBt QZBksP59VRH1vT01Mx69sY NjpHWyy1xthRo6CwXiRJXm HLZ9zDwbNQggf9YtCOPoC2 1lsIZgr7J8 DTRusIzulPRcBmEewDS9nD 5ePYtsnjyrn7cpxfvgYnr4 oo16mDAxe6S1yYW3D1Zsrc T5JPYnmIKi LdynrVSBjZ1urjyyl4txka neOpWrBOUiQWl5CAk7AZNv jZwgZjAkLZ19XXO8XFEhtq EuA6RyXVWx kGwpPmV0z9O3Fw4YZ3HWQs qmY7IUHBNPHStqhKK+PC90 xb08Y5DnRwvpBsx5AUPkQJ Y2fGT2xB5x ETRvZHqhp6Z1lAQ7C1Wqos Fsxr9fz9ezEQMkVRvfZ16e hHDmp7A9NRDznTH3TKFxuD keMvKwhA85 Oyc+WPQssPrhu5UmHvfcv2 ybm7zzcFi6JksfVUIfjwKl sLqdQAN7n5RjIw5iKPHjeV T0pNO8iQ8e RvIjEpH2HVopP852FxTnoV NiKfvjE81vP0QblRV+PHRy Lqd6NRQbaEsiKG7vR0FjUA RpbmctbGVm bBjhTR1pJSNlufshPOUucA 2cZIAeU7c7CiNhHeQ6YUxz J4EgCWPmezwuLq61lP3vBi YvJkN1JZpc V8MmboZ5PFNeaTDgTZrtDR C1W03tq3H2UPXqPWJzVVU5 oMG4wR3skFcedsuqrPIyxB sgdmVydGlj VSgcIUezZ837KBZtkRyzNp NvZGluZyBEYXRlOiAgMDEv MjIvMjAyNTwvdGQ+PHRkIH K6lUbaBNDb qWPkRWjeRs2loUuqdVzfNJ 8mFEQdouvnAHSupT8xMJQw xMFqvNpbNE9pBCSwlezgz6 65RkQbJOM2 ZQBwbJDrN7IubN4uTaZqAA ZhXTPrI6UjbDVbLTejT599 YTurWpV0QBEkxfTbA3WxVJ FsaWduOiB0 k6S6Kp7Mr0TdovqyG3AvmA XgYgJoRhcbKLx5F2GwYfxn dHI+WH78VGSlHX87EUz9TI N8jBpdVLuc IOZvP0HadH4sTrXqQVPtDL RkOyc+PHRhYmxlIHdpZHRo GImfMIZjTyRoyMgsHS5sVd 9yZGVyLWNv wAqzhVCeVgKrj6dpRHSiZT vsTC6fxCuiD4KdzQB6IWTu e1x3Tg16X04uG2BysUB+PG BygZB8zVA8 lC5dGmWqYvK7YUufA509Cg JspFQqDutqe3bvt4dizNh5 OkN4TYYraoJxcDpxBEA7d4 QuEr58Y96h IHdpZHRoPSIxNSUiIHZhbG assj5leG2wJu3+PGNvbCB3 bNT7oL7kBjUrNoU8RXhgU4 49InRvcCIv Nghdh9ary0qiaMq3BbDgPZ YymjGkbXhtYSQ9o0GbGj63 C4BtfGhlj0LrDks7vr58zG Lvd5X8kKD8 L6YcDOWcmeezzKYupXzuVP 0jRCTwwknsGGTqbZ5dZRRa I1j2ImUlXmX7YLcdP2Hmxv J6AVZueKZc NGXsyUHXbI5ghdnok1ghey qjUaIbTXVoKQz1DGn6AATl uVpdXxOzYDS8LeW0DEA2nD OavH9bsZdb ykqccX6qJjd+HBE0qLZjmB UOPN7aWzyayPX+PHRkIHN0 wQvyYLkkPTKjcI9kCERiD9 l4QlLoYqC0 MCphY4PayoM3BWMyqWRrKR UyjRAVcT2faunnx7nzjfdn UfWzYLBnXNg8SFt8XGJjuH duOiBsZWZ0 LsX6TXA0xCJqsN5gyXmezx oujK0hFiz+QmlydGggRGF0 HDw6F8DlBul8WDUuoUxcUG 0ncGFkZGlu Ry7poKqrvGaeSO5dDWIcds qpm292TfBlu7rbXFUydOTo QObeUOF6X62pn3J2SFOvZR PcKXU4sRS3 aD1rdRxvixkohUBhjLlsrv AvrSggGGgeNTutG232ZTFh pCkdBzCoUXt6L2FaLpl6ZP VsnGjvRV9q jRQxSNqnFq1imOadpPdgKN 7lPRPmxvwey004KbLfl5um IHSerKTmMOqhICZ4K27zd7 D7LQSwAAXg EHZ1hQU0mM4ptCxdwmvqqC VmdDsgdmVydGljYWwtYWxp B660UPGhuEliEbZbiRo7P5 HhHon9DFRg tShtBV7xrGVhMRcsKl7mwW opgZrcWA3pTZEzujuov590 CyNba9zqGIHoqUJhIHibBS E2I49rj2N8 WVViDPGiTFV4lPK1eH6acM lnbjogbGVmdDsgdmVydGlj ZVcuUKqaU513EHXsrRmwZs BhdGllbnQg IGuaWSh1C5ViGkrsxBU+PC 58FFIbOK08uRLbpVJsc9ad pFw1LvQbLJYhBJN4fEwiFI qlz2HaSDCo T96nyEKhi0M2SOXxhRbxeT UnYjKcgYV2yE9jXBawrlcq s9gbghfhGzyey0uanc02qM 31K69vSDic ZHRoPSIzMCUiIHZhbGlnbj 5myB1lJm6+GAMsuTH0cAD4 nG7gSETuGkO4LNasN136Ds RvcCIvPjxj v6mvg7yurCp4EhA6GWAlwv KyxRpoBKH2b3KeAf34P16w IHdpZHRoPSIyMCUiIHZhbG inzv3rnH8f Ii8+VBBvdGT3hLX1zZ8yYx IqXsI8YWbkW776UnAonNJl HyiyX93zN8IfyXL+PHRyPj b9WNLqrExv DH4nnUQqGRqqMn2iVAH0Kd CuXsSlPTnmQ6OeQGWhjnla qyjfoSY7WTGsESQiaC98Ie 9udDogMTBw lODHaC0yaktin7vjkimhRp XoVIIqFMe0JRu3IOYpcIxx WuRjMVG3NhY1UEB2eRZkmF 1hbGlnbjog tA6xR5FfPIDlpifeEt41oT 1bPsDqQqS6KNjmWld+Q1JB G3REEzHdNOGTNACWOtQsME lDSEVMTEU8 W7EaFdy8TKGgdYtaVG1lmB IhZUvkLj3boAaaqHrkYA8h SYWfruclYWVxgK7hLLZrcP HjbLlvXQ9l SVZjjbfvb652EtUuXNA1SK LugFTlL0UrcB1kVxZcSUBn WKBcM9WjdMIhLBfxR531NX pmOsV2UNFk vnKmY2SsIFIxbAkbScC0v1 L0Bj1oKo7yDR4qNJz0CT37 KE79nUQrj2E8yCG8G5FzST Rpbmctcmln dZO1RRUqPSFnzB54xVHpON aqBz9hp7U1f943FJSlMNWl zW57Rn4wsDkmLARldEBWwT 1ilohke9br zvtwLhDzRIHfJUh1WRi1RT FdaEduGqQjDYI9OzB5MBS2 aVFefX9qtEvbflpmlH5oIo c+MjYgWWVh ntD2K2DhJzr7JWJjpOrdGH 3mkSTzQEmlMf1orWzdwYgn UJ4sWSQwvnuzVCXjqD3mUW JvdHRvbTog OM5nZASnnixrf147TnAzNB K6DCYudWUmU4SasQ0qUfPw GQTeNVUwH8RzaPIoSEsiW5 84IImrXpW6 QDOzkxBlR3LvDWQkyOobBm I1k3J5Dg8JCR6NARZ9S8Xk Lfs1ZOPdvDitYL6woRSzYG lcKi9niBhl zUqsBS9cXFPfjumuDZOihS 4qQXPzoSHkyRpkSY7lNHCi bgyfk658DjPwNPD9ATNcdW WvZ8RzvC9c ZdRbXYSgFYUaJ3ByuDAeFA eoK943QLaxObK8DPXsfcHq W3XdRGVdzKalQnQ1c6R1Kf 5PUDwvdGQ+ BY55pp93B4JqUjyzJsz8LY VsAJE8oZE8pW0zEIPvZMtn t2Z6sOK8C2BkemAshr6py1 xsYXBzZTog Z10byFDod6S8RGQzqOA9JH YprBseMqOkfK80Drl+PGNv yNzbw2NqUuogn2rze7ztlZ w7GjSmKEYq ccBqvTmzHUS7d4ZuUf31J2 9sIHdpZHRoPSIzMCUiIHZh zNqpuq9aoI1oXu4+PGNvbC O9iWF7pX8a AeExYjC1WTikE081OaVmjA HnSrpml6gtj4vvmLd7NwXz MBYbazMhmHhdGHA0x5VdVi 07G2YmqZyz l1OmFcw2zt63kBQpf9Q8jC P3R2LvHSRktnzbsXJdvKxd XL9jUJGgdqnxQDMewS8pLG AzR3k7MpIm VmQ4YKsuZ6HhgoD6IEPotU LtQYXijBNGpA6lfclvh1xp stfkCqKpFBClGEt2XSy9DQ FsaWduOiBs AUB1ZdZ3TRY9qMIquU4hbR smkjeojU8sFra+XRi8o1ko xFQuMS8xuHL9ME74DO90wC Dfk5E0dMT3 C9AtDOJmmzfqendjxCF3QX GmVGFzbW37Jr6jeJnlJo3g MHIaUYX3UZQxaBWcA8AogF 9yOiAjMDAw EZBiU8TpoPAlSKglE984SA ubDaY3JJHlpeNbH2NjCMNh sIxqJbL1n5H9Qv3SQR27IF 69GG80kRCf n1I7yKW6K0GoRNYkrkxlez pmsWQ3DONsIJFipW17Zn3f gYelSw1eJFHqSCT3YAHeyP RqY2YxkK5q LtKdXKSaHIEdO1JlqLWdUW csK927AUgkUhZ8LCAdmrQo D4UnECQppQgpXbU3i4R7Es 7NCf51BY86 ZO49gSUzl5D0lSP4W7UeUX DkfwvjyvvtiUC1EBJwXZLj cT32Kf8rmMjzSw6pSFVuQW H0HWJfdJKg V7AdcW4tAiTzWLEuSGBrX8 CjkNCgFHztU126KApiPlW6 CHDzngNvL4VoCHOcfYqlCc Q9y3A7Jc7U XVseolr0Q3ZkDxvufLY+PC 90OWIbBJ67tKBzsYPjf0sz fDt7ZdVzWXCwDVB3xSekYJ aqt1FqFAFx Y29 (more content not included)... Normal [facility] ED Clinical Summaryon 2024 ED Clinical Summary [facility] ? Urgent Care [address] [place] [address] Clinical Summary PERSON INFORMATION Name: SHERLY ASTUDILLO Age: 24 Years Sex: FEMALE : 2000 MRN: Acct#: Visit Reason: UC - Throat Problem; THROAT PROBLEM LT SIDE Arrival: 09/24/2024 12:32:36 Discharge: 09/24/2024 13:30:00 LOS: 000 00:58 Check In: 09/24/2024 12:32:36 Checkout: 09/24/2024 13:30:00 Address: [address] [place] [address] PCP: Anthony Gomez MD PROVIDER INFORMATION Provider Role Assigned Unassigned Michaela Early MA ED Nurse 09/24/2024 12:34:37 Larissa Cobb ED PA 09/24/2024 12:34:58 VITALS INFORMATION Vital [...] Follow-Up: With: Address: When: Anthony Gomez MD [address] [place] [id number] In 3 days Comments: You have been [...] next 3-5 days, also f/u with your SOLAR PROCESS ENGINEER, for reevaluation, return to the emergency department/urgent [...] 2:Pharyngitis Patient Understands: Comment: Normal [facility] ED Patient Summaryon 025 ED Patient Summary [facility] ? Urgent Care [address] [place] [address] PATIENT DISCHARGE INSTRUCTIONS Patient Information Name: SHERLY ASTUDILLO Age: 24 Years Date of : 2000 Reason For Visit: UC - Throat Problem; THROAT PROBLEM LT SIDE Arrival Time: 09/24/2024 12:32:36 Primary Care Physician: Anthony Gomez MD Attending Physician: Larissa Cobb Comment: Patient Education With: Address: When: Anthony Gomez MD [address] [place] [address] In 3 days Comments: You have [...] next 3-5 days, also f/u with your SOLAR PROCESS ENGINEER, for reevaluation, return to the emergency department/urgent [...] these instructions at home: Medicines ? Take ixjg-rzd-idpxpqo and prescription medicines only as told by [...] (more content not included)... Normal [facility] POCT Rapid Strepon 5 S. pyogenes Ag IA Ql (Unsp spec) Negative Invalid Interpretation Code [facility] Comment on above: Performed By: #### 9 [id number] #### [facility] (DEFAULT) [address] [place] [address] Urgent Care [place] 025 Urgent Care Record [facility] ? Urgent Care [address] [place], [place] [id number] PATIENT DISCHARGE INSTRUCTIONS Patient Information Name: SHERLY ASTUDILLO Age: 24 Years Date of : 2000 Reason For Visit: UC - Throat Problem; THROAT PROBLEM LT SIDE Arrival Time: 09/24/2024 12:32:36 Primary Care Physician: Anthony Gomez MD Attending Physician: Larissa Cobb Comment: Visit Diagnosis: Diagnoses This Visit Oral sharon (B37.0) Pharyngitis (J02.9) UC - Throat Problem ([id number]) If you received any narcotics, sedation, or [...] documents With: Address: When: Anthony Gomez MD [address] [place], [place] [id number] In 3 days Comments: You have been [...] next 3-5 days, also f/u with your SOLAR PROCESS ENGINEER, for reevaluation, return to the emergency department/urgent [...] and treatment you received today in the [facility] Urgent Care were for an urgent problem and are not intended as complete care. It is important for you to follow up with a doctor, nurse practitioner, or physician?s pharmacy innovation assistant for ongoing care. If your symptoms [...] can reach you if necessary. [facility] has provided you with a complete list of medications post discharge. Please inform your national account executive/provider of your visit and for further instruction on these medications. Any specific questions regarding your chronic medications and dosages should be discussed with your primary care physician(s) and/or pharmacist. New Medications [facility] [id number], [address] [place], [place] [id number], [phone] clotrimazole (clotrimazole 10 mg oral lozenge) 1 [...] (more content not included)... Normal [facility] Telephone Encounteron 2024 Hand Endband Cutter Authentication Interface Message Text Called patient lmom to call office for sooner appt... we have them available. Thank you Normal [facility] DRUG SCREEN RAPID (URINE )on 09-10-2024 AMPHETAMINE [...] ng/mL CANNABINOID SCREEN URINE Negative NEGATIVE [facility] COCAINE SCREEN URINE Negative NEGATIVE [facility] METHADONE SCREEN URINE Negative NEGATIVE NO [facility] METHAMPHETAMINES SCREEN URINE Negative NEGATIVE [facility] OPIATE SCREEN URINE Negative NEGATIVE [facility] OXYCODONE SCREEN URINE Negative NEGATIVE NO [facility] PHENCYCLIDINE SCREEN URINE Negative NEGATIVE [facility] TRICYCLIC ANTIDEPRESSANT URINE Negative NEGATIVE [facility] US OB 14+ WEEKS ANATOMY SCAN on [...] GDLNon AGE GDLN ACOG TESTING Note . [facility] Comment on above: TESTS RESULT FLAG UN ITS REF RANGE LAB Clinician Provided Cytology Information Source.............Cervix Other.............. No. of containers..01 ThinPrep Vial Age Algo ACOG Crystal... FLAG LEGEND: L-Low Normal,H-High Normal,LL-Alert Low,HH-Alert High <-Panic Low,>-Panic High,A-Abnormal,AA-Critical Abnormal Performed at: 01 =G [facility] [address] [place] [address] Melissa García MD, IGP, RFX APTIMA HPV ASCU Note . [facility] Comment on above: TESTS RESULT FLAG UN ITS REF RANGE LAB DIAGNOSIS: 02 NEGATIVE FOR INTRAEPITHELIAL LESION OR MALIGNANCY. THIS SPECIMEN WAS RESCREENED PART OF OUR PRESIDENT & CEO PROGRAM. Specimen adequacy: 02 Satisfactory for evaluation. No endocervical component is identified. An endocervical component is not commonly seen in the patient. Performed by: 02 Emilie Frost, Operations Professional (ASCP) QC reviewed by: 02 Lauren Ness, Supervisory Operations Professional (ASCP) . 02 Note: Note 02 The Pap [...] <-Panic Low,>-Panic High,A-Abnormal,AA-Critical Abnormal Performed at: [address] [address] Melissa García MD, Performed at: = - [facility] [id number] Supervisor Sterile Processing: Melissa García MD, Phone: [phone] Performed at: [facility] [id number] Supervisor Sterile Processing: Melissa García MD, Phone: [phone] SPATULA-ALONE CERVIX [facility] RECURRENT VAGINITIS (HTRX)on 08-15-2024 ATOPOBIUM VAGINAE 0 [facility] ATOPOBIUM VAGINAE Not detected [facility] BVAB 2,3 (BACTERIAL VAGINOSIS ASSOCIATED BACTERIA 2, 3); MOBILUNCUS SPP 0 [facility] BVAB 2,3 (BACTERIAL VAGINOSIS ASSOCIATED BACTERIA 2, 3); MOBILUNCUS SPP Not detected [facility] SHARON ALBICANS, PARAPSILOSIS, TROPICALIS 0 [facility] SHARON ALBICANS, PARAPSILOSIS, TROPICALIS Not detected [facility] SHARON GLABRATA 0 [facility] SHARON GLABRATA Not detected [facility] SHARON KRUSEI 0 [facility] SHARON KRUSEI Not detected [facility] CHLAMYDIA TRACHOMATIS 0 [facility] CHLAMYDIA TRACHOMATIS Not detected N [facility] GARDNERELLA VAGINALIS 29.341 Abnormal [facility] GARDNERELLA VAGINALIS Detected Abnormal [facility] Interpretation and review of laboratory results Abnormal [facility] MEGASPHAERA (TYPES 1, 2) 0 [facility] MEGASPHAERA (TYPES 1, 2) Not detected [facility] MYCOPLASMA GENITALIUM 0 [facility] MYCOPLASMA GENITALIUM Not detected N [facility] NEISSERIA GONORRHOEAE 0 [facility] NEISSERIA GONORRHOEAE Not detected N [facility] TRICHOMONAS VAGINALIS 0 [facility] TRICHOMONAS VAGINALIS Not detected [facility] GLUCOSE TOLERANCE 3 HOURon 1 10-11-2023 GLUCOSE TOLERANCE 3 HOUR mg/dL [facility] Comment on above: GLU FAST 83 (<95) Co l: 12/06/24 0708 GLU 1HR 131 (<180) Col: 08/10/24 0812 GLU 2HR 124 (<155) Col: 08/10/24 0912 GLU 3HR 95 (<140) Col: 08/10/24 1013 [facility] Urinalysis macro (dipstick) panel (U)on 08-08-2024 Bilirubin, UA Negative Negative - 4(70) +++ mg/dL [facility] Blood, UA Negative Negative - 50 Osvaldo/mcL [facility] Clarity, UA Clear [facility] Color, UA Yellow [facility] Glucose, UA Negative Negative - 1999(110) ++++ mg/dL [facility] Interpretation and review of laboratory results Normal [facility] Ketones, UA Negative Negative - 160(16) ++++ mg/dL [facility] Leukocytes, UA Negative Negative - 500+++ Edison/mcL [facility] Nitrite, UA Negative Negative - Positive [facility] pH, UA 5.5 5 - 9 [facility] Protein, UA Negative Negative - 1999(20) ++++ mg/dL [facility] Spec Grav, UA 1.02 1 - 1.03 [facility] Urobilinogen, UA 1.0 0.2 - 12 mg/dL [facility] GLUCOSE 1 HOURon 07-31-2024 Glucose [Mass/Vol] 132 mg/dL High NINF - 13 0 mg/dL [facility] Interpretation and review of laboratory results Abnormal [facility] Coding Summaryon 07-16-2024 Coding Summary HTMLBase 64 WjzfajedFAv7rOu+PGhlYW Q+CI3RUGZgN38llTPpfT3y E2UHYDnHVcmeMXCQNWwYGi OrofBhUS3qpRZeMHVu IC8+JK0wSGOeGllqoZZyn5 I9hWZ8V76frk6jHFqemAS4 HHPtCsKuwhtev4xiuAp8FK cuNmluOyBt BOXzgZ96JLX9rQ78Iv47qK KtpZKqs4rtxDm3ItShSLCq HUE4rVedPQovz7EjIQNhS5 7kvXXia5T6 MIDedHbgjJMwTtKfhVA2zK 0sBXvghsujd2ckpixoJip7 ti13aDOln7L2nIL0D0Thxv M4RQYrsXXt RxtzwRKDjW2qdwukk9fdfs sdNyLwFSEjBCj9XXl8KAZl cXrdBqCcUY29TRF0DECfkt VgC6KiIQIr bZpaTcR4y0O8Ah4UX5VBQd kcL6VIHCWPFRuykIX+PC90 vv07T1DbHdszBpp9XWEeHC P6rSQ8mL3x HQElGEjvm4I0dTA6A1Qqyy Rpln5ow0npQPViZAhoP03g rJNtg7M5OGUbgYW7PXFjyH opUyKptX16 Oyc+KJMjzSbdp6BlUswnt7 arn6wglFa8GaljAANnhvPi gEetUVX9h6RbAc8jPKVewJ N4ySO3fE3p OwOfNuE8PHtaY947FoWinD CvThllH46vX8JjnMN+PHRy Mmw0GHUheUncJY2tL4CuWL RpbmctbGVm rYogNF8nILZlsztvASKmbW 1eIKCnG8g3ZvQhFsP2HUxa S9VpGKUvnslgZq08bY7dCd QrXjW8FBbk K3ObueP5HRZugLLeDIdwIG Q5P47pj6H9JRMxSUZoGPM9 bTB3eU6qjVkcnyunmSWnkL sgdmVydGlj TZpzYBzfT424LLIlyVqsAq NvZGluZyBEYXRlOiAgMTEv MTEvMjAyNDwvdGQ+PHRkIH W8gGbjQIRr mTSxIHqvDd9huAbmtEjzTT 5zVHHqmzbdJVRwyA4mNRWb xXXyeUjaMU7eWGZrbwjpf8 84QcHxFGQ1 YPLwdLZkT0NogI4zEhAfQG PbVDOwU3KcmXNbDOajJ003 XIlmAuW5TUQvlvQnF4OoLY FsaWduOiB0 a0O1Pq0Ls3ArhihwZ6SslP DyAzVcDkvtWGo6Z1AyLbhk dHI+VX63RCLfLU14LOh3PP Z8lXkzFTbo SMAuQ3OfcR2qLxMxPBFnEL RkOyc+PHRhYmxlIHdpZHRo ZJfkOOKsSnWxvWkqOW1yQj 9yZGVyLWNv sNfkzBDnIpKeo5omYYJzTJ ajGR4slCtjJ6PhnAK6WUIa l5z5Fo34F73aC4AvzLU+PG QglOQ8yUS9 mY2cGoFjIaO4YLegZ481Hm FiaQMbJvpno1sqo7djhGw5 FyV7GJUamfHgaDghUNM7v1 BdHu89Z16p IHdpZHRoPSIxNSUiIHZhbG ddxv9kaO4aPh6+PGNvbCB3 hKT1jK2kJnHvXyV4EKunV6 49InRvcCIv Zlxmr3orb4gxePf9AcZmEM HdpkYvaRrtYXB9k6QaFp20 A7ZfzCygf1CeZic0ci41iY Jwo6K0fCK5 V6BcFDRlslguoGRxwNukBK 1xFXTmpbkuJMQqsR6bJLWn G4f0DyTdAxT6BGfpT8Abtz D1YQEcaIDs FUBdxGXFzF1bpakfc4slzu urEsArNGGaYCv7BDl6YEAe jSvlOoDeNBJ6VlD3QHO6sW IhzY6pfLta slfkxX8oVvx+NVV2mIWhkP GPHK6iQbuuqBZ+PHRkIHN0 gGkaFHyqQYMzfB1bMVGlQ6 n9CgKxLsV1 TYwyW5CmcuY6TPDziNPnIM ArwWWNrY5sdwdon7vluglp RaVlAFJlSEl8KBi7ADFopG duOiBsZWZ0 ZjU3PTT1oOPzrM4jbYihsa omhP7pLsp+QmlydGggRGF0 ZYq0K6CwIkr8WGOgxUhdFT 0ncGFkZGlu Gm0imZxllZqcMN0eSIGwfv sqi880ChFft4ddYVFeyCIw IUavSYG6T09bl4Y0NRHpXM QfBUV1sFF2 qH3jiEsurnoisUTzhOguws FadCkdWIzsDZixY778SKLq nCbeVdAiODz3Y8QcEgy2AO CeeYukUR6a wBMrUBgeDg0syRstaVgqPA 4aQMNoomhly942LlIqi5ad HNHshSWxDPqlIJH8B93hh8 J1NRBiQHSf CRR2oBV6pY6esFeiokzriK VmdDsgdmVydGljYWwtYWxp V114WYVrrLlrVnGgwGr9P5 TrMdc2JYYq gMoqMT6wlPHnZJeeIa4eqV gmhLryEK0aOQAleidiu095 LgLkr7mkKJXhmCCnDCscXC Y8W79zo9D6 DSZfUSFnLII0wUU8sE8itC lnbjogbGVmdDsgdmVydGlj OZhhYGgsO580DMQniTyuCb BhdGllbnQg QCmkARe5V7GpKizkiZN+PC 47OCQiJY52eCGrgNQtg1hk hIn7NyDrLIToPMA5vLocKD xdh8BeRIPj R32ugZFsy0C8JZUuvZcypZ SeIvLqiVN6eV8gHCyacdyh u5oqikfwIkyrd1qyhz74mM 15J77iEOej ZHRoPSIzMCUiIHZhbGlnbj 8wrP9kFj4+CVBljWH5sBU2 wA8dIWAcWbZ0JHhvF498Pc RvcCIvPjxj i8ufo5fogWy9ThE2JQYnbz ZhiSfgLJO7w2DlMp16H89a IHdpZHRoPSIyMCUiIHZhbG mhwb0exW8w Ii8+QDDqaWC8tFC4wX6nFy FhNsI6PYvzO357GwJueCAc IsxmI15hP8WnwYK+PHRyPj n4BVWecOtf MM0ojICeMQkmHz6aGFC6Ig FkVcOzCXynA0VbGPRxxkte ccqfaYB7BJFnWPBiuI75Cj 9udDogMTBw lDFFnA7duqkey3uhraeqTr EmPODkTRo1CAo3FIIkzEfo PsHcHEX4EiB9JHC5kSRpkK 1hbGlnbjog jL5wT8LxKVOijqagGy67yO 3qBjAnOdY5CZwuWwz+Q1JB U5MWXqKpETJRDLMXBeHsDH lDSEVMTEU8 Q6OrQpb0NNLdtQnfTU1czQ FiOZxgZp3ppAhncIazSL3y KTDknlfkGUQjzL2jZFAvhI IsdBrkZR7y GHIabgxnk002ThBuMUA0CE NtmQVdB6ZqwU0aMpTsTLEr HRWwA6HupTRwIQpaP071KC jbAwO4KUFu muDmQ8DjBGWmxQbwWdD8i5 N7Fe5aOe3aMP7tPPt2UQ78 YG71tYWnv7Q3uWD2Y6VcMA Rpbmctcmln zSM3WZVcCIRobL58vPWeSY awAs5lc4B3x877ZGReOFQr wU45Lg0kfRuqNSBzwRZQrK 0xqqgvg4fw btdgVyHgDJVoCLz2MJt5BS CtwCcdSlAmGPN5PcH9HBN6 bGXfpM4dsBsdylxhfA9zDj c+MjYgWWVh nqQ0M1DgUjd0BQRddItxIE 2kiDGfFMuxFf4ekJaaqIpz DD8gYVCqjbhnQJHicT7mXV JvdHRvbTog OU0zBHAyizdle797QbPgYH S6UXNoeIIaH1SleS2aPhWt LYBjBZOcK2QxjBVmSRucZ0 81DWjlQwC7 BBAshcBuT0HwMKZszGicXf P9a1S0Bf6GRU5RMHM0C9Xt Sai7YEHbaSdxKJ0bhQEjRS gaNj9orVmh jVzsKM5fDNVsuunuBDGldV 4jPHTabLHxlAtbLR0pZWXa rozgo953MjMyGKH9VACyoM PkL7ImrZ2v AnWsAUDzLYMuO2TrmONmBM qfH404OSdaRmU7EAKuupPf V0RpQSIjeSyoAfU7s6I1Me 5PUDwvdGQ+ GM97ud08T6QuMoyhLru7ZZ PzPJA0fWL3zU5bQUDhUDpq q4U8jWT9Y6FwroMbzk2bg0 xsYXBzZTog E00rkWQbp0L2JDMijUU5MU XwfRmmAjNhjD45Xzs+PGNv nBuvo6ClTbaeh2sne7vzpI a4JcSyGCVi akNzyGfbBPX4o7CaEs31S1 9sIHdpZHRoPSIzMCUiIHZh uSlnix4akT6sVi1+PGNvbC M4sYH6nH4n MtNgPcU1TLisD643BuYjaK BwLdhhz9fsn9ngcXv7EsQn SZYdwlQhlGmcCRV9j7QqYk 53G7BitNxn w0BrWgr7kj88eFDkp3M3lO I4E5EoWFZvkmsjzBJatVnj AM1lWMXbvktoPVGszP9iFA SrV5f2YkBj LpY3WIrpB4GplvR9KMElwM SkYTHaxUKCqU9lhulit6is brlxNoCiOYPnDHg1CCe9JD FsaWduOiBs DYJ7IwU0ZHW9aIUeyC5jlI dkxstthH8oYan+UTx9k8pn dQEeMB9vhDD2FM61SO60rE Nut8I9nSL9 Q9SeBDBkxhfruecvbQJ8ZK TrRMTwtT85Ti4imErrMf3l IIFhYYY1VZFzqGUsT5FcuQ 9yOiAjMDAw UUBlQ8EzaWEzMHqmN011GE izCkG4XLBdwwRqE9FgCOZn rBkmGyO1n5P9Nx0OTM81IT 44QL19gNGz z3Y2sGN9I3ZvCHObvmhxqz csoHM6WQVfWZNekV60Jj8c eZctHv6hDFSsVYS8FYNovI OoJ0PidH7s NdBhFTKpAIOvG4FmtJLjBI pvS415MKbzYxR6SVKatvSt H5PlFRWbjYpkWqU7r8K9Xk 7SYp39OC82 OU16hDKxi5N7gQM8U8ZgST JarnlxjlpozKP3XCUhZZBd oX26Sn4auWagXk5mYJFhDR C1BRVajPKd S3VqxV8cSfCrHFZiIIQgF0 MfaXEuBOjzM332HLieAgI9 GWNautBtT6FjULAzeEgbLl I0t3G0Bd9X EQzqpli1G1OsXewifJO+PC 03LTXkOH30gADzvBBpg1jk hTw4OnIsMXFyCRA7aArnFJ yqu8XmSJNo Y29 (more content not included)... Normal [facility] Urinalysis macro (dipstick) panel (U)on 07-10-2024 Bilirubin, UA Negative Negative - 4(70) +++ mg/dL [facility] Healthcare Blood, UA Negative Negative - 50 Osvaldo/mcL [facility] Clarity, UA Clear [facility] Color, UA Yellow [facility] Glucose, UA Negative Negative - 1999(110) ++++ mg/dL [facility] Interpretation and review of laboratory results Abnormal [facility] Ketones, UA Negative Negative - 160(16) ++++ mg/dL [facility] Leukocytes, UA Positive Negative - 500+++ Edison/mcL [facility] Comment on above: small Nitrite, UA Negative Negative - Positive [facility] pH, UA 7 5 - 9 [facility] Protein, UA Negative Negative - 1999(20) ++++ mg/dL [facility] Spec Grav, UA 1.025 1 - 1.03 [facility] Urobilinogen, UA 1.0 0.2 - 12 mg/dL [facility] ED Clinical Summaryon 2023 ED Clinical Summary [facility] ? Urgent Care [address] [place] [address] Clinical Summary PERSON INFORMATION Name: SHERLY ASTUDILLO Age: 24 Years Sex: FEMALE : 2000 MRN: Acct#: Visit Reason: Vaginal discharge; VAGINAL ITCHING/DISCHARGE Arrival: 07/05/2024 10:15:34 Discharge: 07/05/2024 10:59:00 LOS: 000 00:44 Check In: 07/05/2024 10:15:34 Checkout: 07/05/2024 10:59:00 Address: [address] [place], [place] [address] PCP: Anthony Gomez MD PROVIDER INFORMATION Provider [...] Location: Home PATIENT EDUCATION INFORMATION Instructions: Vaginitis, Hyzd-ru-Zhcj Follow-Up: With: Address: When: Anthony Gomez [address] [place] [address] Business (1) Within 5 to 7 days With: Address: When: COLE ALONSO [address] [place] [address] Business (1) Within 1 to 2 days DIAGNOSIS: Vaginitis Patient Understands: Yes - Patient/family/caregiv er verbalizes understanding of instructions given Comment: Normal [facility] ED Patient Summaryon 024 ED Patient Summary [facility] ? Urgent Care [address] [place] [address] PATIENT DISCHARGE INSTRUCTIONS Patient Information Name: SHERLY ASTUDILLO Age: 24 Years Date of : 2000 Reason For Visit: Vaginal discharge; VAGINAL ITCHING/DISCHARGE Arrival Time: 07/05/2024 10:15:34 Primary Care Physician: Anthony Gomez MD Attending Physician: Spenser Fang Comment: Patient Education With: Address: When: Anthony Gomez [address] [place] [address] Business (1) Within 5 to 7 days With: Address: When: COLE KEMPZIO [address] [place] [id number] Business (1) Within 1 to 2 days [...] and use condoms. General instructions ? Take okzh-ccd-fzkkpwr and prescription medicines only as told by [...] provider. Document Revised: 02/19/2021 Document Reviewed: 02/19/2021 [employer] Patient Education ? 2023 [employer]. Medication Information: The exam and treatment you received today in the [facility] Emergency Department were for an urgent problem and are not intended as complete care. It is important for you to follow up with a doctor, nurse practitioner, or physician?s pharmacy innovation assistant for ongoing care. If your symptoms become worse or you do not improve as expected and you are unable to reach your usual health care provider, you should return to the Emergency Department, we are available 24 hours a day. For those (more content not included)... Normal [facility] Urgent Care Note- Provideron 07-05-2024 Urgent [...] History Medical history: Resolved Ankle fracture, left ([id number]): Resolved. Ankle impingement syndrome ([id number]): Resolved.. Surgical history: Cholecystectomy (23442399).. Family history: Anxiety Father Sister Diabetes mellitus [...] Martinez RN 05/28/2024 Alcohol Use: Current Comment: Denies - 11/19/2023 09:33 Marisela Puri RN Employment/School 10/28/2021 Status: Employed Exercise 12/01/2021 Exercise type: Walking Comment: 1-2 times a month - 12/01/2021 10:44 - [employer] Home/Environment 10/28/2021 Lives with: Roomate(s)/Friend(s), Significant other Home equipment: crutches Nutrition/Health 10/28/2021 Caffeine intake amount: 2 cups daily Sexual 12/01/2021 Sexually active: Yes Substance Use 05/28/2024 Substance use: Current Comment: Denkyle - 11/19/2023 09:33 Marisela Puri RN 05/28/2024 [...] - 08/24/2019 12:13 - Demar ALLRED, Mayte 11/19/2023 Electronic Cigarette Use: Use, within last [...] (more content not included)... Normal [facility] Urgent Care [place] 024 Urgent Care Record [facility] ? Urgent Care [address] [place] [id number] PATIENT DISCHARGE INSTRUCTIONS Patient Information Name: SHERLY ASTUDILLO Age: 24 Years Date of : 2000 [facility]: [id number] Reason For Visit: Vaginal discharge; VAGINAL ITCHING/DISCHARGE Arrival Time: 07/05/2024 10:15:34 Primary Care Physician: Anthony Gomez MD Attending Physician: Spenser Fang Comment: Visit Diagnosis: Diagnoses This Visit Vaginal discharge ([id number]) Vaginitis (N76.0) If you received any narcotics, [...] legal documents With: Address: When: Anthony Gomez [address] [place] [id number] Business (1) Within 5 to 7 days With: Address: When: [place]LE CE[place]STE [address] [place], [place] [id number] Business (1) Within 1 to 2 days Medication Information: The exam and treatment you received today in the [facility] were for an urgent problem and are not intended as complete care. It is important for you to follow up with a doctor, nurse practitioner, or physician?s pharmacy innovation assistant for ongoing care. If your symptoms [...] can reach you if necessary. [facility] has provided you with a complete list of medications post discharge. Please inform your national account executive/provider of your visit and for further instruction on these medications. Any specific questions regarding your chronic medications and dosages should be discussed with your primary care physician(s) and/or pharmacist. New Medications [facility] [id number], [address], [place] [id number], [phone] terconazole topical (terconazole 0.4% vaginal cream) 1 [...] ? Eating food (more content not included)... [facility] ALL CBC WITH AUTO DIFFon BASOPHILS ABSOLUTE AUTO 0 N [facility] Basophils/100 WBC (Bld) 0.3 % 0.2 - 2.0 % [facility] Eosinophils/100 WBC (Bld) 1.2 % 0.9 - 7.0 % [facility] Erythrocyte distribution width (RBC) [Ratio] 12.9 % 11.0 - 15.0 % [facility] Hematocrit (Bld) [Volume fraction] 40.3 % 36.0 - 48.0 % [facility] Hemoglobin (Bld) [Mass/Vol] 13.7 g/dL 12.0 - 16.0 g/dL [facility] IMMATURE GRANULOCYTES ABS AUTO 0.06 High [facility] Immature granulocytes/100 WBC (Bld) 0.5 % 0.0 - 0.5 % [facility] Interpretation and review of laboratory results Abnormal [facility] LYMPHOCYTES ABSOLUTE AUTO 2.5 [facility] Lymphocytes/100 WBC (Bld) 21.2 % 20.5 - 60.0 % [facility] MCH (RBC) [Entitic mass] 29 pg 26. 7 - 34.0 pg [facility] MCHC (RBC) [Mass/Vol] 34 g/dL 29.9 - 35.2 g/dL [facility] MCV (RBC) [Entitic vol] 85.2 fL 81.0 - 99.0 fL [facility] MONOCYTES ABSOLUTE AUTO 0.4 N [facility] Monocytes/100 WBC (Bld) 3.3 % 1.7 - 12.0 % [facility] NEUTROPHILS ABSOLUTE AUTO 8.7 High [facility] Neutrophils/100 WBC (Bld) 73.5 % 43.0 - 75.0 % [facility] Platelet mean volume (Bld) [Entitic vol] 9.5 fL 9.5 - 13.5 fL [facility] TBH EO # 0.1 [facility] TB PLT [address] [facility] RBC 4.73 [facility] WBC 11.8 High [facility] CLINISYNC [facility] Outside Recordson 06-11-2024 Outside Records [id number]#1. [facility]on 06-08-2024 Coding Summary HTMLBase 64 EbqaeycxZBm4lDv+PGhlYW Q+XC6LXUTvV38vyMArcP7o I7BUDOiBBylnUOXXEQyBVs KqkqXjSP1pfMNlPZKn IC8+IV2hMPBuHtndzBZrp0 Z8fSF4A10heu6eKJjxrZZ9 VVDrSvVxsfwtw8nrwLx8JD cuNmluOyBt GGXafD43QSS7pK61Ru65lN AbjRKgy6cieFh0AgJgREHl HPH3pAjvYQasb2XyHAJcE7 9lnXQaa0W7 LNCfgVbmcBFvVhTxlXI8sJ 5xQYanehpmp4rekvfqHlq1 ux30bBJzu2O2jUQ2N9Lpbc M8XLTzrOIu CfjmjUDIfC4ysnygj6iehf umAbFvUYDgEWt3GLc2GMYp nAtkZnMbKD31MGS8OQZuzu BhO6KmTEMo tXsaQvS7m3I9Td1RK6FISp htZ5OVHFWFLEzhkYI+PC90 mz49G5LrQatqZwv6MWRyPL M2cUF8wT1r PLFqQGeiu4N4cYX8Y6Riai Qika7kg4tyQVUyFRavM74p qJLfy2T0JKExgYW1FXQboW gxHkBtbJ17 Oyc+DEBgkCbbg3XsPdhjt1 uqu9hnuLh1DfnjIBYwopCp hAcyHWZ4l2QiSd3tIPWchU Z4bQK6nQ3w OrJcLaO2MXkcN576MtXqcB GkCvrsK74dU7UnuHA+PHRy Zin8SCWuxYhoYC7gU0GcTR RpbmctbGVm iZuwWV4zMMSkmmjoCXVaeW 1wPGOoY1c5YdUaNzI4JDna Q9SdTSHsfzdmQf79vS0jGt OnDmQ6OCik G4KpizM4KXQgdAXbRTicLA G4T19zr5L4UYPeFNGsKGN8 bOM4jN2tmDwrrkfoeJMyqP sgdmVydGlj SBjuRWiuU712BREjqLhiXz NvZGluZyBEYXRlOiAgMTAv MDQvMjAyNDwvdGQ+PHRkIH C7jNojBZPt wQItXYgiWu9exYzpoGacJE 0pPNItaaopANUtwQ5sXAHr aXAluLygMZ4yUHLcmmhrf5 92SuMpCXL7 MDRlfKEyL2DtrA6tLxKpHU LiIIVjP1NvyEMdUDavN583 KVgjVrH8RLElufXkK2DsAX FsaWduOiB0 y7Z2Jf8Ag5LmpoibU8HdmE SyIrBcUoebJSp0J8DjOtyl dHI+CP44AXSgWG99VEo6NE P8tHwiNSzz CBPkZ7GbgP8aEzCzBVXoZF RkOyc+PHRhYmxlIHdpZHRo SHbgIGLrZdZvgWolSK7oUq 9yZGVyLWNv cQemzNSmElLuz5rnTRPqCJ inGH8ndDpzJ6SqcJN7OJJr r8c1Xe85A97lD0AyfIL+PG SnhBO0jQS6 yS1uRoHnNcA0HTgpM508Ur EbeNNfEwriv5hfa7kikEn7 MnR6DDWmmaXhuYgdVSZ6q6 NaNa26R61s IHdpZHRoPSIxNSUiIHZhbG rpqv6svO2rWj0+PGNvbCB3 dHQ5kT3pAjFyOuI0PXyaA1 49InRvcCIv Ipbdi4esa0qbiKf3DvRpCQ CzhqGjjLaeJUO4b6WbFt25 W0ZblYbna6JdLns4uc29vZ Fvx9A5eJH8 C8DaBCLfykbzgSHvhQgxHF 9gQDRrciquDSEosJ5lBPRu D9a1PaHvIwE2SWvrZ0Oygd N2GYAmuFRy PCVbqGPEgP6pvbzcr7qasf upPoUiIACcUYu7CRk5QHRx bLvgIbHrVYT2NuN8BJE8jJ JnjZ7itBxh pqufrP4rIxa+KRI2rMZdhC ESLT5mFgtznWL+PHRkIHN0 rLcuGIqmSWDbjJ9mZOQbD1 j0MfPyIeV7 JKelX9AtjgF2VHLkvJMlTG WymDDYrM7vmejzq5wzldmj SkEgIFIhLCk9BHq0SGTpzT duOiBsZWZ0 JpR0ZKC3wHBdiB0chSklhz npqR0nOlf+QmlydGggRGF0 VXb8O2FwEci6UYCrlEjnNH 0ncGFkZGlu Ag5cfTnwpHfgTZ4sVPMgeq acp757PfSvu7egNVKdeBOc FWgoONO6C61tv1P7KSTfGT KgHWH6yTA9 kN8nbSwaqqqafKEosHvcyd WlmTuaQAffDNbgT083BDPd mAhxPbTtGYw6X4NmIuk8UO OsxLkqMY0x cEZlIXapLy6ybUllyWjqJL 3tIGRamdhvb688VqNhw2tc BDSyxCSwVMitEQB9A75nx8 I9ACBmXYRy GEQ3fIH8lM4cbDqkocuorE VmdDsgdmVydGljYWwtYWxp D762YPQqnZthTfOqpKr0O6 WpAtu3XHLt dPcxUR1mtZJpLJcdKe7jvJ mauNsoWA3bEJRayjytk088 VyVtf5iqEQPhpJFqNDtbHZ F4U10dv6U1 SCKaXXVeHID9aDQ4vE8uzK lnbjogbGVmdDsgdmVydGlj FNilSQlzD328WAUyvXldQc BhdGllbnQg AQfwVLy6P8TiHzpvzWN+PC 03FSQnPS78sTRkoVVfr3qt yHu9MjFmEIMxFXH6tDvuET ray8QtORNo V76kwOXgx4H1NCGggFgroK ErPiJawNA2jA3lOWchlnwy z7ujbdtjGtfze0oxjy16gN 04P07rVBog ZHRoPSIzMCUiIHZhbGlnbj 0hwN9oJr1+JCUpqQT0kAD4 uO4eKJCkBkS6OHoqW860Kc RvcCIvPjxj n3dpd8ttiDi3IhV2KTKqbo MujSleZVO7p2WeOq06O31o IHdpZHRoPSIyMCUiIHZhbG osjq1vhY3w Ii8+FQTynAM4qEV3aK7jCl CtJfB9EXgfI590FkNpaTKt WmhhP99gA7JfwUH+PHRyPj i7SKCufScq NM1thZEuYJrbOu6yMBI0Zm UcNiUuSCdeV7YhQRVpjuso xnbffCM7ONXlVHUvcD59Lw 9udDogMTBw sCQVpT5jtuksg3tdyzubPu NzUETjHUj9IYo3MRBugXqp WhUaRIV9QeL3DCR5sMDsnG 1hbGlnbjog oV6cU6CbOOPvskfzNy09gR 4tHoYsAlY0VYctXop+Q1JB F7IOLvHzVRQBJPONQdIoFR lDSEVMTEU8 A4DpAcz0EUXesZpzTC0veD PyDVixBu7ikSfqwUtvJC9o QYSgveynPBJyaI7qWQDnpA TxbRkcAR5n YKHwqfuvb604QsDzHKW0SW WmfVZbH9UqaQ0kRxGuJXHb XDEjY1NanUIwOKtzJ950VJ biHiY0GNGf loTnV6FfLMRxuAekNzD4a5 Y5Lf5nCl1iKM9xKBv3FY06 OQ85nBQrb6V4lTV3B9DvYB Rpbmctcmln gTN7ZDJfPBBicR34qHWrIR jjQn0gx9T4h530QCDpWQOi rI59Hz6beTjpSIOzhSTMpG 4kxmnrl1ca uarnLiRqRMKcAOh6FAa4MJ GovUfjOgJhKRG3ZiW6YCP8 kRBklA9cnYugnxwhcA8fNn c+MjYgWWVh anI8G8CbByj1LNGikOprHI 0hbPCaLWciGw4eaMffwBzd GH0hFMPcaeqnNTTjwV9mHT JvdHRvbTog TB9pKCBgtjvfp298PoFvYR H0LZBlsIZiI2HosV5fJnCf ASZvICBhT0LaoRRwFTsjC9 82PEuxQqN8 TPRtjuVrK2ThSNLemQwrEn S9o8Y2Za9WNE6DPZU7Y4Ui Tqh7LORmrYsfDE3xfEZnVH mbFo9lfSom cNevDH4bRHJscekjNZOzbA 5yYATfcBSpuTzlFA5iHVIu qawli839XnZiBED8KBRjeT KiL1IdvF3s RfApSPSvLIJiP2CusIRoTF aoK617NNtaKxO9TQEfvuQj W4MzUXDumQotAxY0f6X0Ja 3NwSYqW3Wx B7d6V3NkQlwylNV+PC90YW XzGH78jISxuASrn5lepOt8 HiDeNOUdBSG5bQrwJOsqi0 TyEWBuC85e aEMxg0U7XJXeuVbchJMeTt GxnHN3mM9uQKfemhvxv0ky atcgNvgmi6lyog71gV53L9 9sIHdpZHRo ZXCnUMJqOFMifJkpfl6ucX 9wIi8+SVXdwDO4aHU9cK9m FtYfHmF0CHvqB341BpDtqO AmEpifk7lr s9exeIc9YeGnXSYtnzDtaT fzXMQ0u1SqXn86Z87bKEus ZHRoPSIyMCUiIHZhbGlnbj 2wwX5tNv9+ QT1mp5psmu67dU97hLN+PH VhEFR7mXzkFFtmOEBshP0g AHrlPcK0KDEbSvPzbC22nW DdBKtrEm8e fEuhmXptNF8iJIXnrckoa2 63RrBxs1xoGAVqxZHbYGuw SCV0Q84vs0N7FLBaTSXhOG C0mNX6pX1n bGlnbjogbGVmdDsgdmVydG wcGWryIGuxQ935QKQqsPkb DgXucPOsT5neihKZSQ7uLn wvdGQ+PHRk JIW9dEjbJQqfBXUddN6kUT MbJ1q2ViEiEvJ0AOwhR2Km zqX6NZZpeGRiGFKogYMZcJ 2upstrr2fq lpfpCmMaOUIyDXo8UAf1BA KroBakNzZeKDR4YgO0FLE9 yBQefY2wxLogmcakfU2wYz c+RklOOjwv dGQ+AMInMXG1hJppHMmrPS LfnE6tYFPiL6c0NkZdFrR7 ZYtnE3NctlJ7LKRcwKUoXU LqrWYLsE9s eonxx5jurxxnKmQgREPhFV s5SQx3XDNnoBfdPcLtRGX9 UwC1NXL2qDRggV0bkOwgpg axxI5tBeh+ TVJOOjwvdGQ+CNGiZME2cJ oyQHzmIANauI5rFDLjB4a6 XrBrEpH9SUyyT2RzfjF5KQ JvbGQgMTBw iDPHqW9crmugu0wnwjgkAr LeLXVwDLv2CAq7GBRgeHky AnSzNOR3RaS4XBA6kOUyfM 1hbGlnbjog gT2sJlv+GNV9YCN2MR49HT 89S4GjVugpqNEddSA+PHRh YmxlIHdpZHRoPScxMDAlJy OrjJcjNN4y Ym9 (more content not included)... Normal [facility] HCG ( test) Ql (U)o n 06-07-2024 Interpretation and review of laboratory results Abnormal [facility] Preg Test, Ur Positive [facility] Urinalysis macro (dipstick) panel (U)on 06-07-2024 Bilirubin, UA Negative Negative - 4(70) +++ mg/dL [facility] Blood, UA Negative Negative - 50 Osvaldo/mcL [facility] Clarity, UA Clear [facility] Color, UA Yellow [facility] Glucose, UA Negative Negative - 1999(110) ++++ mg/dL [facility] Interpretation and review of laboratory results Abnormal [facility] Ketones, UA Negative Negative - 160(16) ++++ mg/dL [facility] Leukocytes, UA Trace Negative - 500+++ Edison/mcL [facility] Nitrite, UA Negative Negative - Positive [facility] pH, UA 7.5 5 - 9 [facility] Protein, UA Negative Negative - 1999(20) ++++ mg/dL [facility] Spec Grav, UA 1.020 1 - 1.03 [facility] Urobilinogen, UA 0.2 0.2 - 12 mg/dL [facility] Coding Summaryon 06-05-2024 Coding Summary HTMLBase 64 LmoqnzrwVLc1oSv+PGhlYW Q+FH2FWWEwV26ptSDcgU7b C4MNSSfLFbpsGBAEBEdYIf EslgPuQC2adGSfLNBm IC8+RT1mJMDoCbnznTQcn3 I3tIJ1Q81agq4bYEcsfQY3 ZFLiPfDcghlmr4fbaCv0LC cuNmluOyBt YCGeyH20UMH7fG27Yd48sG JdnKYhb4bugIm8WbBzERCw BNO5wNaqPKgtc9XaJXCkU8 9kpGJyv5W8 JNDzwWyfvYWdQlMqiLB5kV 9uYTqmrmjcg7kxlaifBgx9 jw55nUMpk1E1pMW6I3Kdhi X4VYUmjLTy YjlhxHKSuB8cvwfwr1txld cyYqNdOIYwUOq7DEl1CIKg gUlfMwCjYG81DYY6FSZrfk ReA0SxMSGq jSifHvQ4p6L8Ab1PJ8XGAp zcR5BWSTWLNMatkVJ+PC90 bx46V4KgFimwKun0OLUwAV Y8xOD7gO4v LOTtHYqoc1D6aTX7R8Kjqr Izxy4iv0axCLYcXHyiL22c lAWxw6D7VVKhaYQ5AYGfnS mcAoVbuF30 Oyc+AMIapMvss2VgNfvbn5 hhu8wecMq3BueeQJDsjcUi rHyeJKB2e3JlOd8eTTPkmR K3hCW1pN0u SfJsRtG2WSqeF643JqYliO YgPhdzZ04bE6AnmGA+PHRy Fzd2QNIajBopYL3mS8ToYN RpbmctbGVm qKbmFF6rUVMeabtxRFTivR 4xUUCqW7i9IvPvQzL1YAup H2WsBZNakgiaMo34uR9lBd QmAzR7EEly J8KmejZ9WAWmuTVcCFbvYR E0H94hh2E8AIDbFFQaOIF6 nLH8uD8kdRmudtzyvEAjbQ sgdmVydGlj AMwbYOheC841DSEvbYreFd NvZGluZyBEYXRlOiAgMTAv MDEvMjAyNDwvdGQ+PHRkIH Z8nXkkBYVc gZAsJRldTp6imOiclOueKU 2hYJTqtvnfHYUumG3hEBHa kQBbbLsrRK9qHKTvklnfz1 36GtHvYDA4 XMKurPFfB9AbiE5kCsIfBT RaKOXdM0YviBKoFMqaB309 RKelLpZ1EPVotxEzA8NbQD FsaWduOiB0 d4O7Aq3Fi5BqtacgN5WjuN BhNwLjIhtoLLg1J1MzMulw dHI+BU01GNFnXG31HIv3KJ Y3zEazXGgt QQOzO5UnzJ2pPgWkFOTfHN RkOyc+PHRhYmxlIHdpZHRo XXucZJCxCwTqlXnzBV3wRa 9yZGVyLWNv iCwpgLEoTbNvo7zvKDQhKQ tiJR3jwOzuM3VwwGL4DIGk w7v0Gn68W26xV0KewOV+PG RllYX7mMH2 zX9gUqUdRxL6HSjcK052Eh XvxGQfAeqkf2wje6jlyXv2 ZeS3FYWbddXfrCbtEWW1a1 IbBd04W04q IHdpZHRoPSIxNSUiIHZhbG iwjm2ouE2aQq3+PGNvbCB3 kSI7xZ9fTuDnEoL8EVjsC1 49InRvcCIv Pxtzd6cbh7furCy8DiUqDK OawkBduFycDTC4a8XnWr56 N1SzdHvix3KcNmz6al74mC Bjb4H3nMC4 O4BgHTEctmftgIUhaEixPP 1rNBJlgkrdDXIxdB4bAJMu S5g0BpXjTbZ5RMmrJ4Nemf L3NCNsgURj JKLtvQNPgN6hxmfbu0dlfw aqSoRrQUGrDIa7KFm1KGKs yDxmFfPyURA1HfV6AHW1rN FbxG3zjCzp kfbotN7nTdc+QZM3tASbsF QSER5mThegfPP+PHRkIHN0 fFtyDIvcJVFyfR9cMXJfZ9 f9GmEgKsI3 SNevE5VajvC2CWRnrEUjVY VigLEXwA2elvxpm4qwejyr SlLiACFcWNw9WHi1HHGoiF duOiBsZWZ0 WkW6DNE2eEBgzD0mhYjafu idwJ3cOul+QmlydGggRGF0 VAq8M2KuFfw7FYOszCneOJ 0ncGFkZGlu Xc0omNdjrWaxSH4hEQCidj ifw008OmSoy8giPXKbtTVs ABrhJNZ7M66fd0A3DYHaQN OdVPH3aWI0 vO5gaHydkzaezAXwzUmtdz TpgVftPYnmWExfL500WPKq lTpaBuMpMNl9D0VkQdr9LG KjiDmtEO8r uALsIKtvTw6ycKtyuNfzZE 6gXDOesdvaf864YzDad1we OFUvqFGxGMsqEOI7K52qt8 J8DYNlIZTv KLS3mDE6rF7dsSndnyzmeS VmdDsgdmVydGljYWwtYWxp N122WRCkpRsyMbGtjQl1M1 XpLnq0ZQLm gQidQL8jgMRdJHtlYa5mpB qkdBpfEF1sRVOrhdsqk237 OpTzj6yrNMCqhEPjBZscXP E5P50of4J0 HXQdTXIoBVV1jHM7qX7dnR lnbjogbGVmdDsgdmVydGlj UGihVQlmT077OOXzoNuuIa BhdGllbnQg GCflTWg2R1BsZfbuwBA+PC 47UYKxNE33qKVadEKru7ir kFi3SwUaJZFzZVC5gSktCJ evb2VwRCAq B85fqZFur7U7EUVnhFeytS BgIdAolBK3lO1uHGlhujhd b1dpiciuIieey1ifcx30mO 08R88gPIxi ZHRoPSIzMCUiIHZhbGlnbj 8nzU5vWw7+TLSeoEH0jKR4 fL0zLPFyZfU5BMfjD616Za RvcCIvPjxj d8upq3hpvSo0PfH3FGIhlv SpbEpiAOX3w7AoXg35D17y IHdpZHRoPSIyMCUiIHZhbG mdes5vaM5s Ii8+VCKgfTQ7tLO7vK9fKe VdBhL3YQgtM618OlXemRTo OjqzK37kT5WwgOJ+PHRyPj p1RIKudNrs WH1knSLePAckWw0eANO9Ox IgNyXkLHnfC4JyKOIvvens xfvdvAW9PKVxDQUwnV17Zd 9udDogMTBw xDCJoX4ysguaz2wjuywvTq IsGAXsQEx8TYi6HXSewPxt VmHmJBL7SsT9CPR4tCGwfE 1hbGlnbjog jC9oX7BlQFRdkzsmFk53qC 5iXnQoOuN5AUqnAkm+Q1JB C3IPCoVhMBBKKMRLOrWiJF lDSEVMTEU8 E6JoWlv6AWEziIsbFE3jyD ChAJymEi7ylEotpMnySL1v QEDvztvlGCSjiM5vPURhjW GosAkbFZ8x BFNvlsvvv974OiLhALJ7VZ ZhuKElS3CglE2lFiMlKWRe FOUyQ6ItfAQfLQltQ335BM kpWnH0TBDj eaHlY9OzIURwsCssMnD9q8 Q4Us5hGh1gZH9jKPn8TK52 NT86hLRwy3J4oFD9Q7OkKO Rpbmctcmln bGC0UGZtCJGogM93mOLdEX biBt3ab4L5s357PEXvAZTt zV92Ch8gzYooTAEmlSJBzB 2eoeqhe0af qddbViPpGOMkXNt6CSs2SO SwgOnpZwPvFLE8BwX9WJC8 sYZqyH3gmCmbjcjmqE0pXq c+MjYgWWVh weM2M9GzOpj2GXKmxCcnMJ 9myYSvAWyyJd8omOjniJor ZA9gWFVsuzulOFSdcB7nJI JvdHRvbTog IO7sRMWbrlzpt322FfKlWJ H5PEGmdHIfU8RhyZ1oQwKu IKXvMGDaQ2IhgQHtMMgqB4 63AQyjAeL6 ESVjsxQwA3RwMDZrwKhiHj I3x2M2Bb4YET6RBYF7D8Vg Pip6YDEgrBugYD2neMXuGT yvEr0fmZon aYizVE7wZGOzgxotGSGujQ 6yXZRspYKvxPucVL0nWXNo ofbpt894PiLeUNI7UDIiaN JnW7PouZ3k WuDoIEPxEQQsY0XruDUcRM nwE322DRtsBnF6JBDhsmMa T1FwEVYtoZibOfR4j1M2Tc 5PUDwvdGQ+ KJ81ki15U3JwLuiuIre3RN XpYDR8lUA7aZ2kXKZnDIxw c6Z6oUX3N9SchdHzpv2wr9 xsYXBzZTog F08daZEbd6F6MRDosWV5YJ LtuGcsWxLtzU16Yuo+PGNv rEvah1EzCzong0ftf5scgW z4MzVwBKJp qqOucIghJJC2a9HjIb84G6 9sIHdpZHRoPSIzMCUiIHZh qRjtqh4zyR8cRp5+PGNvbC J5aJQ3uA5u OrKvXeX0RQlcD610BaCvqB NsTydii6hup3brmXl5SnFj SVTbwyJjiSfjDNP2i6JzHk 83W5UlpErh w1PdDqo0wl01gWFxp5X7wK C4J3HnIVBagbubtGFqtPoo LD4aHYGgmmugWSOksM6vSA QxD2z5SsWd GnB6KRreZ1DmwfJ1XNZfsQ MfBIIzfOWXuX3hkxohc4gb rxkgSzWvEDJxYUr9XFt3FE FsaWduOiBs ZUV6YcI8WTD2tWOuxY2amJ zwgpddvP6zNgr+PLo1b7hs kZBvYW9alGT9UE16FL42sI Hgx8A0mGO2 F8ChWQOzsdnnppgbiUK2DS KpZZQxxS73Yq7naCoqOu8c PFUuZHJ8ACKnjLGhW7OtoB 9yOiAjMDAw HWSrW3XdlLBmZSpgA294ZI cvXkQ9RAToymFqX8TzYSNd gWyhXfQ9z2T2Qi7TOH18EG 88TR99zWWa s3A8iQM2H5RvYZEyvrbwkm xewVL8KCUiABAtoH29Tf4v xHkbYo7iJXHhPVX6DFHibW ZbV9HmnV4x FkKdQRVgMQMzJ7MycNLqAL siK411GYnaPfY4ISSyosOf O9MzUNMdwCwhWdG7e9N0My 3XUp26GF22 HS08pQEcr7O7nTJ8Z7GdBQ XlrfztsvbazGK9CCMaZFOd gO99If0dyJkgYr5rNMJoZV O5RXCnuDLj U8VruG7lLrDfGHLkOYDhI8 FtjCTxXIytF920BZpjGmN6 JTFtwvWgK2AnUIOdyScnSe I6n8F5Nt2H NQwcata3B5AvAunrxHE+PC 16OFJyNK92wKXhbEFzl2tp mIo2LjEeFNVfEPA9xWczBN end6QvDBXo Y29 (more content not included)... [facility] Office/Clinic Noteon 024 Office/Clinic Note Patient: [...] 113.040 kg Body Mass Index 39.11 kg/m2 [place] Body Weight Calculated 61.437 kg BSA Measured 2.31 m2 General: Alert and oriented, No acute distress. Musculoskeletal: Positive point tenderness over the left gluteal region as compared to the right. Positive straight leg raise. Positive piriformis muscle sign with external rotation of the hip with adduction towards the opposite shoulder.. Impression and Plan Diagnosis Sciatica of left side (OBM20-LO M54.32). Plan: Discussed with patient stretches she can do to help with her sciatica. They were demonstrated in the office. Will hold off on any steroids.. Orders Orders Evaluation and Management: [id number] Office visit - established pt, Level 3 (Order): 06/01/2024 13:28 EDT, Qty: 1, Sciatica of left side. [Electronically Signed on: 06/01/2024 13:56 EDT] Anthony Gomez MD [Verified on: 06/01/2024 13:56 EDT] Anthony Gomez MD Normal [facility] .Auto Diff 1on 05-28-2024 Auto Dixon % 5 % Normal 1-12 [facility] Comment on above: Performed By: #### 7 [id number] #### [facility] (DEFAULT) [address] [place] [address] Baso Abs# 0.1 x10 Normal 0.0-0.2 [facility] Comment on above: Performed By: #### 7 [id number] #### [facility] (DEFAULT) [address] [place] [address] Basophils/100 WBC (Bld) 0.6 % Normal 0.2-2.0 [facility] Comment on above: Performed By: #### 7 [id number] #### [facility] (DEFAULT) [address] [place] [address] Eos Abs# 0.3 x10 Normal 0.0-0.4 [facility] Comment on above: Performed By: #### 7 [id number] #### [facility] (DEFAULT) [address] [place] [address] 20870 Eosinophils/100 WBC (Bld) 2.5 % Normal 0.9-4.0 [facility] Comment on above: Performed By: #### 7 952629, 02770663, [id number], 2940895 #### [facility] (DEFAULT) [address] [place] [address] Lymph Abs# 3.6 x10 High 1.3-2.9 [facility] Comment on above: Performed By: #### 7 129324, 61582114, [id number], 7851743 #### [facility] (DEFAULT) [address] [place] [address] Lymphocytes/100 WBC (Bld) 27 % Normal 14-48 [facility] Comment on above: Performed By: #### 7 187650, 53073319, [id number], 5601272 #### [facility] (DEFAULT) [address] [place] [address] Dixon Abs# 0.7 x10 Normal 0.0-0.8 [facility] Comment on above: Performed By: #### 7 581947, 84194009, [id number], 2034778 #### [facility] (DEFAULT) [address] [place] [address] Neut Abs# 8.4 x10 Normal 1.5-9.2 [facility] Comment on above: Performed By: #### 7 171705, 55145695, [id number], 9724151 #### [facility] (DEFAULT) [address] [place] [address] Neutrophils/100 WBC (Bld) 64 % Normal 44-88 [facility] Comment on above: Performed By: #### 7 729595, 29930017, [id number], 0127140 #### [facility] (DEFAULT) [address] [place] [address] CBC w/ Auto Diffon 4 Man Diff? Auto Invalid Interpretation Code [facility] Comment on above: Performed By: #### 7 394440, 63428701, [id number], 2515571 #### [facility] (DEFAULT) [address] [place] [address] Erythrocyte distribution width (RBC) [Ratio] 13.6 % Normal 11.5-15.0 [facility] Comment on above: Performed By: #### 7 158858, 52679232, [id number], 1348979 #### [facility] (DEFAULT) [address] [place] [address] Hematocrit (Bld) [Volume fraction] 42.0 % High 33.7-40.4 [facility] Comment on above: Performed By: #### 7 971190, 69827868, [id number], 3738539 #### [facility] (DEFAULT) [address] [place] [address] 00684 Hemoglobin (Bld) [Mass/Vol] 13.8 g/dL Normal 11.3-15.9 [facility] Comment on above: Performed By: #### 7 281824, 28619340, [id number], 3875215 #### [facility] (DEFAULT) [address] [place] [address] 47702 MCH (RBC) [Entitic mass] 28 pg Normal 24-34 [facility] Comment on above: Performed By: #### 7 279083, 95772380, 1525987381, 7387916 #### [facility] (DEFAULT) [address] [place] [address] 00009 MCHC (RBC) [Mass/Vol] 33 g/dL Normal 26-37 [facility] Comment on above: Performed By: #### 7 430203, 08494127, [id number], 6276112 #### [facility] (DEFAULT) [address] [place] [address] 34713 MCV (RBC) [Entitic vol] 86 fL Normal 81-100 [facility] Comment on above: Performed By: #### 7 160086, 39870147, [id number], 9497518 #### [facility] (DEFAULT) [address] [place] [address] 65213 Platelet 352 x10 Normal 138-427 [facility] Comment on above: Performed By: #### 7 974291, 77803548, 1537236441, 8438282 #### [facility] (DEFAULT) [address] [place] [address] 55104 Platelet mean volume (Bld) [Entitic vol] 7.8 fL Normal 6.3-10.2 [facility] Comment on above: Performed By: #### 7 559343, 30293498, 4484494357, 5256997 #### [facility] (DEFAULT) [address] [place] [address] 33364 RBC 4.90 x10 Normal 3.70-5.30 [facility] Comment on above: Performed By: #### 7 184137, 35627666, [id number], 0636155 #### [facility] (DEFAULT) [address] [place] [address] 26864 WBC 13.1 x10 High 3.5-10.5 [facility] Comment on above: Performed By: #### 7 823963, 25463727, 4159897380, 1422168 #### [facility] (DEFAULT) [address] [place] [address] 83572 CMP Standardon 05-28-2024 eGFR Non AA >60 Invalid Interpretation Code [facility] Comment on above: Performed By: #### 7 946173, 23614736, [id number], 1061888 #### [facility] (DEFAULT) [address] [place] [address] 15703 eGFR AA >60 Invalid Interpretation Code [facility] Comment on above: Performed By: #### 7 217119, 21020687, [id number], 6875466 #### [facility] (DEFAULT) [address] [place] [address] 03318 Albumin [Mass/Vol] 4.4 g/dL Normal 3.5-5.0 [facility] Comment on above: Performed By: #### 7 849259, 42156586, 3455495149, 3981186 #### [facility] (DEFAULT) [address] [place] [address] 84679 Albumin/Globulin [Mass ratio] 1.2 {ratio} Low 1.4-2.6 [facility] Comment on above: Performed By: #### 7 198386, 83635003, 4992276076, 7021233 #### [facility] (DEFAULT) [address] [place] [address] 39430 Alk Phos 46 IU/L Normal 32-91 [facility] Comment on above: Performed By: #### 7 948866, 53252586, 3390870079, 9002661 #### [facility] (DEFAULT) [address] [place] [address] 86017 ALT [Catalytic activity/Vol] 29.0 U/L Normal 14.0-54.0 [facility] Comment on above: Performed By: #### 7 236910, 61069681, 4753539273, 7409805 #### [facility] (DEFAULT) [address] [place] [address] Anion gap [Moles/Vol] 11.4 mmol/L Normal 5.0-19.0 [facility] Comment on above: Performed By: #### 7 726267, 76563945, 5392918559, 0116276 #### [facility] (DEFAULT) [address] [place] [address] AST [Catalytic activity/Vol] 30 U/L Normal 15-41 [facility] Comment on above: Performed By: #### 7 822264, 78849316, 7537742981, 0184190 #### [facility] (DEFAULT) [address] [place] [address] Bili Total 0.4 mg/dL Normal 0.3-1.2 [facility] Comment on above: Performed By: #### 7 510177, 75102704, 2297780384, 2034651 #### [facility] (DEFAULT) [address] [place] [address] Calcium [Mass/Vol] 8.9 mg/dL Normal 8.9-10.3 [facility] Comment on above: Performed By: #### 7 495724, 05553189, 0261414049, 9737116 #### [facility] (DEFAULT) [address] [place] [address] 15033 Chloride [Moles/Vol] 104 mmol/L Normal 101-111 [facility] Comment on above: Performed By: #### 7 465652, 03336542, 3264574044, 5739588 #### [facility] (DEFAULT) [address] [place] [address] 33928 CO2 [Moles/Vol] 20 mmol/L Low 21-32 [facility] Comment on above: Performed By: #### 7 313445, 66069040, 5770090393, 8526813 #### [facility] (DEFAULT) [address] [place] [address] 98547 Creatinine [Mass/Vol] 0.66 mg/dL Normal 0.60-1.30 [facility] Comment on above: Performed By: #### 7 980661, 48456481, 3095814622, 5517338 #### [facility] (DEFAULT) [address] [place] [address] 11693 Globulin (S) [Mass/Vol] 3.5 g/dL Normal 1.5-4.3 [facility] Comment on above: Performed By: #### 7 555088, 48216166, 4581756200, 1945563 #### [facility] (DEFAULT) [address] [place] [address] 22185 Glucose [Mass/Vol] 100.0 mg/dL Normal 74.0-118.0 [facility] Comment on above: Performed By: #### 7 896774, 47657783, 6415340567, 7911594 #### [facility] (DEFAULT) [address] [place] [address] 81669 Osmolality 263 mOsm/L Invalid Interpretation Code [facility] Comment on above: Performed By: #### 7 290171, 62293339, 8201926305, 8236749 #### [facility] (DEFAULT) [address] [place] [address] 86591 Potassium [Moles/Vol] 3.4 mmol/L Low 3.6-5.1 [facility] Comment on above: Performed By: #### 7 671889, 74799215, 6729310992, 6543830 #### [facility] (DEFAULT) [address] [place] [address] 89253 Protein [Mass/Vol] 7.9 g/dL Normal 6.5-8.1 [facility] Comment on above: Performed By: #### 7 624960, 51665004, 7557295224, 5173338 #### [facility] (DEFAULT) [address] [place] [address] 81854 Sodium [Moles/Vol] 132.0 mmol/L Low 136.0-144.0 [facility] Comment on above: Performed By: #### 7 959971, 50365316, 6571630173, 4754743 #### [facility] (DEFAULT) [address] [place] [address] 51195 Urea nitrogen [Mass/Vol] 9 mg/dL Normal 8-26 [facility] Comment on above: Performed By: #### 7 031561, 68944767, 6902079620, 6530505 #### [facility] (DEFAULT) [address] [place] [address] 10983 Urea nitrogen/Creatinine [Mass ratio] 13.6 mg/mg Normal 4.6-16.2 [facility] Comment on above: Performed By: #### 7 169329, 82319386, [id number], 2044635 #### [facility] (DEFAULT) [address] [place] [address] 41854 ED Clinical Summaryon 2023 ED Clinical Summary [facility] - Emergency Department [address] [place], [place] [id number] ED Clinical Summary PERSON INFORMATION Name: SHERLY ASTUDILLO Age: 24 Years Sex: FEMALE : 2000 MRN: Acct#: Visit Reason: Back pain; Abdominal pain - ; ABD PAIN LT SIDE, LT LEG NUMB Arrival: 05/28/2024 14:14:57 Discharge: 05/28/2024 17:55:00 LOS: 000 03:41 Check In: 05/28/2024 14:14:57 Checkout:05/28/2024 17:55:00 Address: [address] [place] [address] PCP: Anthony Gomez MD PROVIDER INFORMATION Provider Role Assigned Unassigned Evonne Cheung PA-C ED PA 05/28/2024 14:19:07 Daisy Freire ART PREPARATOR Nurse 05/28/2024 14:26:14 VITALS INFORMATION Vital Sign [...] Home PATIENT EDUCATION INFORMATION Instructions: Muscle Strain, Ulky-ux-[place]; Sciatica, Eurx-ps-Rcyx; Back Exercises, Dbzb-ku-Cyda Follow-Up: With: Address: When: Anthony Gomez MD [address] [place] [id number] Within 3 to 5 days DIAGNOSIS: 1:6 weeks gestation of ; 2:Low back pain with left-sided sciatica; 3:Pain in the side Patient Understands: Yes - Patient/family/caregiv er verbalizes understanding of instructions given Comment: [facility] ED Clinical Summary [facility] ? Urgent Care [address] [place] [address] Clinical Summary PERSON INFORMATION Name: SHERLY ASTUDILLO Age: 24 Years Sex: FEMALE : 2000 MRN: Acct#: Visit Reason: UC - Abdominal Pain; LT SIDE PAIN, LEG PAIN Arrival: 05/28/2024 14:07:02 Discharge: 05/28/2024 14:10:00 LOS: 000 00:03 Check In: 05/28/2024 14:07:02 Checkout: 05/28/2024 14:10:00 Address: [address] [place] [address] PCP: Anthony Gomez MD PROVIDER INFORMATION Provider [...] [facility] ED Note-Nursingon 05-28-2024 ED Note-Nursing Outsole Cutter Machine at bedside while US was performed. pt [...] Pt is A/Ox4 call light within reach [facility] ED Patient Summaryon 024 ED Patient Summary [facility] - Emergency Department [address] [place] [address] PATIENT DISCHARGE INSTRUCTIONS Patient Information Name: SHERLY ASTUDILLO Age: 24 Years Date of : 2000 Reason For Visit: Back pain; Abdominal pain - ; ABD PAIN LT SIDE, LT LEG NUMB Arrival Time: 05/28/2024 14:14:57 Primary Care Physician: Anthony Gomez MD Attending Physician: Pam Gao MD Comment: Visit Diagnosis: Diagnoses This Visit 6 weeks gestation of (Z3A.01) Abdominal pain - ([id number]) Back pain ([id number]) Low back pain with left-sided sciatica (M54.42) Pain in the side (R10.9) The Pharmacy at [facility] is open Tuesday through Tuesday from 9A [...] alcohol and/or drug addiction problems; contact the [facility] 28/03 Crisis Hotline -Text 4HHPY gn [phone]. If you received any narcotics, sedation, or [...] With: Address: When: Jason MCNEAL, Anthony Santo [address] [place] [id number] Within 3 to 5 days Medication Information: The exam and treatment you received today in the [facility] Emergency Department were for an urgent problem and are not intended as complete care. It is important for you to follow up with a doctor, nurse practitioner, or physician?s pharmacy innovation assistant for ongoing care. If your symptoms [...] can reach you if necessary. [facility] Emergency Department has provided you with a complete list of medications post discharge. Please inform your national account executive/provider of your visit and for further instruction [...] (more content not included)... Normal [facility] ED Patient Summary [facility] ? Urgent Care [address] [place] [address] PATIENT DISCHARGE INSTRUCTIONS Patient Information Name: SHERLY ASTUDILLO Age: 24 Years Date of : 2000 [facility]: [id number] Reason For Visit: UC - Abdominal Pain; LT SIDE PAIN, LEG PAIN Arrival Time: 05/28/2024 14:07:02 Primary Care Physician: Anthony Gomez MD Attending Physician: Spenser Fang Comment: Patient Education Medication Information: The exam and treatment you received today in the [facility] Emergency Department were for an urgent problem and are not intended as complete care. It is important for you to follow up with a doctor, nurse practitioner, or physician?s pharmacy innovation assistant for ongoing care. If your symptoms [...] can reach you if necessary. [facility] Emergency Department has provided you with a complete list of medications post discharge. Please inform your national account executive/provider of your visit and for further instruction [...] (R10.9) Currently (Z34.90) UC - Abdominal Pain ([id number]) If you received any narcotics, sedation, or [...] Acid 9.1 mg/dL Normal 4.5-19.8 [facility] Comment on above: Performed By: #### 9 [id number] #### [facility] (DEFAULT) [address] [place] [address] UA Dgpsr0gh 05-28-2024 UA Bacteria Trace [facility] Comment on above: Order Comment: Urina lysis Microscopic order added on by [employer] Expert Rules system. Performed By: #### 3 [id number] #### [facility] (DEFAULT) [address] [place] [address] UA RBC None Seen [facility] Comment on above: Order Comment: Urina lysis Microscopic order added on by [employer] Expert Rules system. Performed By: #### 3 [id number] #### [facility] (DEFAULT) [address] [place] [address] UA Squam Epi Moderate [facility] Comment on above: Order Comment: Urina lysis Microscopic order added on by [employer] Expert Rules system. Performed By: #### 3 [id number] #### [facility] (DEFAULT) [address] [place] [address] UA WBC 0-2 [facility] Comment on above: Order Comment: Urina lysis Microscopic order added on by [employer] Expert Rules system. Performed By: #### 3 [id number] #### [facility] (DEFAULT) [address] [place] [address] UA w Culture if Ind Standard on 05-28-2024 Breakpoint UA [facility] Comment on above: Performed By: #### 3 [id number] #### [facility] (DEFAULT) [address] [place] [address] Color (U) Straw [facility] Comment on above: Performed By: #### 3 [id number] #### [facility] (DEFAULT) [address] [place] [address] Culture? Not Indicated Invalid Interpretation Code [facility] Comment on above: Result Comment: Resu lt created by rule GL_MAGR_ADD_UA_CULT Result created by rule GL_MAGR_ADD_UA_CULT Performed By: #### 3 [id number] #### [facility] (DEFAULT) [address] [place] [address] Glucose (U) [Mass/Vol] Negative [facility] Comment on above: Performed By: #### 3 [id number] #### [facility] (DEFAULT) [address] [place] [address] Ketones Ql (U) Negative [facility] Comment on above: Performed By: #### 3 [id number] #### [facility] (DEFAULT) [address] [place] [address] Micro? Indicated Invalid Interpretation Code [facility] Comment on above: Result Comment: Resu lt created by rule GL_MAGR_ADD_UA_MICRO Performed By: #### 3 [id number] #### [facility] (DEFAULT) [address] [place] [address] UA Bilirubin Negative Normal [facility] Comment on above: Performed By: #### 3 [id number] #### [facility] (DEFAULT) [address] [place] [address] UA Blood Negative Normal NEGATIVE [facility] Comment on above: Performed By: #### 3 [id number] #### [facility] (DEFAULT) [address] [place] [address] UA Clarity SL CLOUDY Abnormal CLEAR [facility] Comment on above: Performed By: #### 3 [id number] #### [facility] (DEFAULT) [address] [place] [address] UA Leuk Est SMALL Abnormal NEGATIVE [facility] Comment on above: Performed By: #### 3 [id number] #### [facility] (DEFAULT) [address] [place] [address] UA Nitrite Negative Normal NEGATIVE [facility] Comment on above: Performed By: #### 3 [id number] #### [facility] (DEFAULT) [address] [place] [address]163 UA pH 6.0 Normal 5-8 [facility] Comment on above: Performed By: #### 3 [id number] #### [facility] (DEFAULT) [address] [place] [address] UA Protein Negative Normal NEGATIVE [facility] Comment on above: Performed By: #### 3 [id number] #### [facility] (DEFAULT) [address] [place] [address] UA Spec Grav 1.010 Normal 1.001-1.035 [facility] Comment on above: Performed By: #### 3 [id number] #### [facility] (DEFAULT) [address] [place] [address] UA Urobilinogen 0.2 mg/dL Normal 0.2-1.0 [facility] Comment on above: Performed By: #### 3 [id number] #### [facility] (DEFAULT) [address] [place] [address] Urine Source Clean Catch Normal [facility] Comment on above: Performed By: #### 3 [id number] #### [facility] (DEFAULT) [address] [place] [address] US 1st Trimesteron 05-28-2024 US 1st Trimester [...] Anthony Yeh MD 05/28/24 7:34 pm Technologist: [facility] US Transvaginalon 05-28-2024 US Transvaginal EXAM: [...] Anthony Yeh MD 05/28/24 7:34 pm Technologist: [facility] Ur[facility] Care Note- Provideron 05-28-2024 Urgent [...] History Medical history: Resolved Ankle fracture, left (85799603): Resolved. 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 Surgical history: Cholecystectomy (49927705).. Family history: Anxiety Father Sister Diabetes mellitus [...] use: Current Comment: Denies - 11/19/2023 09:33 Marisela Puri RN Tobacco [...] Diagnosis Abdominal pain, acute, left upper quadrant (GJN77-LC R10.12, Discharge, Medical) Acute left flank pain (LEL41-BE R10.9, Discharge, Medical) Currently (MWL04-PD Z34.90, Discharge, Medical) Plan Condition: Stable, Guarded. [...] 14:16 EDT] Spenser Fang Normal [facility] hCG Quantitativeon hCG Quantitative 35016.0 mIU/mL High 0.0-0.6 [facility] Comment on above: Result Comment: Post -Menopausal Reference Range is: 0.1-11.6 mIU/mL Performed By: #### 7 [id number] #### [facility] (DEFAULT) [address] [place] [address] HCG ( test) Ql (U)o n 05-08-2024 Interpretation and review of laboratory results Abnormal [facility] Preg Test, Ur Positive [facility] Progress Noteson 04-24-2024 Hand Endband Cutter Authentication Interface Message Text Attestation signed by [...] [facility] PATIENT VISIT CHIEF COMPLAINT: Toothache and Saltese Teeth HISTORY OF PRESENT ILLNESS: 24-year-old female [...] canal DIAGNOSIS: Abnormal tooth eruption (Primary Diagnosis) [[id number]] Impacted third molar tooth [[id number]] Caries, Impacted wisdom teeth, and Retained dental root ASSESSMENT: #1 Caries #16 Caries #17 and #32, Partial bony Impaction with pericoronitis PLAN: Surgical extractions #'s 17, 32, Extractions #'s 1, 16, and with local anesthesia Pavan Lee DMD, MD Normal [employer] Hand Endband Cutter Authentication Interface Message Text Normal [facility] [employer] [facility] Coding Summaryon 03-28-2024 Coding Summary HTMLBase 64 PhhbkozoEYe4fEx+PGhlYW Q+PE0LNPKaI73snFSxhJ2o D8RWFWpMRwavCXMCXLjRHi IyjyXiVK1znMBoUPOw IC8+DC8pLAEsEezxtBEcw6 E4iOF5U05qzh8lTZiawBB7 FDLvCuConhxho0ltpSg8XK cuNmluOyBt QKBhhM87WTN5tB87Eh84yK DeuWOuh8ifiHo4LqWrTMTs ARO4tGzdVDgxh4EqPJJcZ2 4fyVWic6D8 SZSwoLncnQFgHnGfoRF7aM 3gIAbokkucz8jkdmtrGbv2 cf98jHRqs4D0bTK8F9Vgcd Y9WPVkjOAt WkrhbKXVjM3zgjrlk4xipl kbYwHjAZCbDMj5HIf3IEHt eOmyCnQrGJ07YND2ICSoqg SlA7ClEMNr fDnaRoJ4n5O3Zo5JQ9NCWf oaN4ODNTDBTTrrhGA+PC90 as02Y1IxMkkvCtk7ZQFjSZ I4rWK3qY7s IQCgGIcla1C7iKB3Z1Zqnh Wqhn7rr7evPKRrDTcnD26v lFTpi8X4QEKbgQH4DNDjpC vbXfQhxS45 Oyc+VFNjbYlkr8JaYxtgt2 shp7yjzYl1EoqaHPInsiEi rLwgSUO5n5FhBt5jZPYtyI Y0qNI3sJ8r EcVpLuR0THcuA342NsKgeJ GnOotpL21qX3OneLR+PHRy Uhc5RQYwkPntTX9hC4DlHH RpbmctbGVm lUcnGP6vVSWbzzhyGSQiuN 4zWZVdC6f3DrNtKoR7JJvs E2ZqMSAlzyncSo89nP0oBi YeMsF2RZld G8RnhtQ6KTVxsIEvYZauMY H1T70iz8L4WYFiWEKaKSG2 sFM5iU5njKimozjhaTGsjA sgdmVydGlj XKixVJvuI619GCCioFwgLz NvZGluZyBEYXRlOiAgMDcv MjQvMjAyNDwvdGQ+PHRkIH A1nKpjAXQb aEYzCIltFp3llOzygVdfEC 2jUMXzkyxdDNUazC9bEFEi mEMwuBknTR9tSEDpztvmt0 94KvHhQEL5 USTzaKFtZ3BbxK1wIyNeQI DrBKKgK3HskCYyHAzlJ925 DVejMlC8EQOvxlWaL0CnPI FsaWduOiB0 b5J7Yy7Nl9AggufaM8EyrO MgGmIcVpalWVd7I3NaFgyv dHI+JR66FXDyBV31OCi1JW J4aPbdJNjg ZOMfM9KooT4jNgXzBZWzWA RkOyc+PHRhYmxlIHdpZHRo ATmqAPLsNwNpzRagDY8nJj 9yZGVyLWNv iDcxaWXaWlKei9alMPFjIU voEU4cqXlpK8TfxMM6JVYm s7v0Qc92U41fS1HgwOQ+PG WtpEX1zBV4 mT0lVwFqXjI1TSzdV998Gw QfwAMjSkggw5vfq0jeoMe7 UeR3QWAxeiHczAxdTUZ3p0 ZgFy62U91q IHdpZHRoPSIxNSUiIHZhbG ptzm6zaA3oQl8+PGNvbCB3 qZA8jS3xRgMqIhJ1ZLojW6 49InRvcCIv Dryoy9npu6uuiGg4DvUwPO CvdhJpzIadUDI6i0RnQv40 O5GeiMmsz8DoXcw0kc76bI Wdw4K0tXE3 E7VjAJHdzvairQKclNtsSY 5wFACaiwygALIuzH0jPGOh L0l1YvUjTsL7KWsaY0Bpan N6MHTpzMFg CCMcxPQGhK4mrxors2jdvj amWbMwPVLaPFt7DTn5XTJx wZnrNvYlGUL1AkL6MQK3yT QwtX9wcDvq gamkpV2sYxp+FBT0iCSceP ALSN0lAxortFS+PHRkIHN0 sWjcPRbhPDXshA9kNFIpD8 i9QiGiThV1 AHhgL0WdxpP9YGOygAMgRP WgiHNKpI9cnaqtw9slppfk ZpKdAIGaNQj5EEt6RISfeE duOiBsZWZ0 FfC7ULL8dFTzkO4xzHitfw bxlZ8rSoi+QmlydGggRGF0 ZUb4S7MxQzt6HYFyoKwsVB 0ncGFkZGlu Dn6gvPmlfOkaKS1qFVJbrf srx473UcCbw7yzYLPjeJLq CHwyLYX3N27qz5I7WLObRD AyGEH9nJD2 fE0yvDogisbjcOUmuEwscn CadZskOOooZPudW270OOAr jTdvWuBeQCv6I3JeQpe6VE HcvWkiXZ7j qJArEFazKv0coTlrbVnfXE 7pQKVoaynaa130CqWnt4cy TQTpcTXzATokMRS2G73qk9 K3BWDxZCPl LKA7mET8jJ5rfPizdjckvL VmdDsgdmVydGljYWwtYWxp Z977TRChfLxdBzRgvCn7D7 JaXtw8RKZv uUdwDW7bgGMsWTvdJd3bnE wlhJckSZ8tEUUyraxmp917 QlMov5frFGNtmMDvTHgvLT X0M43ug5G5 RWUoMGWvCLL6iPJ3kW9frX lnbjogbGVmdDsgdmVydGlj HSitYOegU557EAAowVixLd BhdGllbnQg AIqmZMz3R8MdEdzxeCR+PC 35JNScFL17lQGkrXQfp1px hRy8KvUkNXVvVOW9dBqdQI jvr3FrSEGu L70oaDXcs1Y4VIOdkFgadH CpMfXpwIA0yJ2lUDwjcszp a2rchiigZlhic1vncx89qG 03Z16hOYvk ZHRoPSIzMCUiIHZhbGlnbj 5yrZ7vRf0+GGAsfYF7xEQ9 vG3lLUGpKkC8JDpwH482Oq RvcCIvPjxj s9ckb5iiuJi6QvB9PTMrwp JhxUsrRPC7y5QnQv23W61n IHdpZHRoPSIyMCUiIHZhbG gtqw5zaQ4c Ii8+VXEruGT0tPA7qW0rEe XcKlQ6LPaaM881DpLobQVz XfezK29qM0QvmKS+PHRyPj u7ZKEghJcb WE1ygGPuSFzxOu4sPPT2Th OnCrJhNNniJ4KpBKBrpltf mltlyVU3KZGgAPKocA77Yr 9udDogMTBw wJVCeV8wmsjaz5inlxolDt StVMJlPVw9YMo5OJKneVqw BnGrHGH1YeM4YZM9gTUibT 1hbGlnbjog bZ4nM6VsDFBsvbyhWa03vZ 2zKcUhJfN4UHxfZsd+Q1JB W3KSVfDxXXSGNLJTOpRhVD lDSEVMTEU8 J1HnDpk4XRNkkCjxCH2amJ WuDFnqJr1huGehqRrdQE5c JUEmjgrvAQGxxO4hKHIpgY HlrDrlDE9o TSWrhsgub662WoJeYDU5UP PteJCkW0JsyE8hOkPzGWRh AIXeA5ErlXAvZBwvE518QS yrSvD5CTOq oxHlF3JaABVxzYoiCcD8e5 W3Yc6mBx4wNI2sRIo5MP45 ID02hLNpb5O9cNL2E8PyVZ Rpbmctcmln zZU1BBEkWDMvfQ68tRUcPY etJs6gx5Q5x884XOQbGEDz cJ08Fr3qoRkoIZKfeMLQiU 6vkrgde1yd eddnCeSgUTKoDYg7MUo6FJ UjuAukXnGwELY5XvZ1SLE2 tOEvpY7loXhzynpyfD2rQq c+MjYgWWVh qbS0I6QgQag2HEVhkIcfGE 0ouQJxBYbzIh0iuKfevOgm EN4bYWOxjbstFRKxiQ2kYH JvdHRvbTog RM2gTVIkuupsz858QjUbGR G4MFHtuQQiL7HnaO0kOpHu WETbKIRfK9LbbIVtOMpzW1 46RWyhKhO9 LVZtoiXsL6DcJHLwqBbpNp U9h7K9Jz7ZJY6YGYB9A6Bl Bsq8MAQfbZvxHA9jySDcLG eoGf7noZdu cEglTF0fMRYfxipfUJFeeW 5zMUNfiHJjuKnyAD6uRMAx vmlmq283NwLhRWP8ZAXpbZ BhW5UemX1a ZbFdQTKfCXTgU3BpxYNzJY bqC084OSldNhO5ZAJuxpCl U5YqJRIcoAvkItS4f1M5Ot 5PUDwvdGQ+ BO25ve95O0BaEivyIcx2YG VtRDK0xWA8cP2lQFIrJUou f2Y0bOC3J1YxbeYwnu7ep0 xsYXBzZTog R23ptDPus7U1HJYcnUG8SV KppNawFqFusW83Kyz+PGNv hRori5AvJyxpg9nsz5hdkA o7VvWiCABa xyIrtFhiJLM4d4OnWf22H0 9sIHdpZHRoPSIzMCUiIHZh gUyjvp4oyP3qUi8+PGNvbC R5pHS8mP3w CkQjYmA9MIxtW575VwJvyM JlReltl4fah0oeoJk2BkDr RIQescBjwXbjFZM2z2WvQo 43Q8UluImd h5WnWen4ep14hODzj1I3rA G8N2GxOYMlretzwOQcjWhs ZS1nYEHfznmyMMQbhY8mNA FiD1b0PwQw LvC3LLzcK6RgwiC6FRMjhS LxAUZhmRDSjR7sfgspw0oz dnqqTaWhTHObTKi6TJn6UY FsaWduOiBs APD1GlX4BRB9tTOqzU4nsP phnqctyC6tZur+QEg7f8ci iVZfYM9pjMN4WD47JJ95xJ Bwj5R7nDI2 S2MtVHPplgvkgtudlUI4KL XxZNSbqU55Tj6enOxcOa9o RZLfUZS8FYKsxYPgX9WzyN 9yOiAjMDAw DMGfV9BetIPvYRbpP035NQ lpCcC2WFYnqkOzY1PvXWEx kGmcTjQ9q6P8Ti4NZT90EC 91UO30hQDh x0A0jOR4O3XrQBHqttyhpp gouRB9PMSzZLOuiI44Hc9w xSsnXl9uYOLiAQW5EWHmkG DjE1YubC9m FoZfVTWxQINmC3VfmCHwMW bhC969YSsaHdQ8OWPfpeNm H7GhMBPktLatRnU3m3Q0Gl 3PBx76PL30 AU72yAZku7F0rUY8K8IhFY FuudxxlfapzRE3DTNbLREz uS39Mi9bhRgfQy6uTNYcHQ F5XPKrsGEh W6BbxE1qUgLnIDTcTJXwA6 QyaIInGYlwT423NLqaNpX8 XISwzaNyF0SjYFQrvQzeOb G7y9K5Di5L JUwfrhl9T2RqSusrgMO+PC 25JUJnTH26cULrwLDot5dl hZi1ZaBmXUFzWUE4tEpxOY lpw0JtZGVr Y29 (more content not included)... Normal [facility] Progesterone LCon 03-15-2024 Progesterone LC 1.4 ng/mL Invalid Interpretation Code [facility] Comment on above: Result Comment: Foll icular phase 0.1 - 0.9 Luteal phase 1.8 - 23.9 Ovulation phase 0.1 - 12.0 First trimester 11.0 - 44.3 Second trimester 25.4 - 83.3 Third trimester 58.7 - 214.0 Postmenopausal 0.0 - 0.1 Performed At: [facility] [id number] Sarah Beal PhD Ph:[phone] Performed By: #### 3 [id number] #### [facility] ([facility]) [address] [place] [address] Provider Orderson 03-14-2024 Provider Orders [id number]#1.0 [id number] [facility] Coding Summaryon 02-20-2024 Coding Summary HTMLBase 64 WftlnrflKMx3oWl+PGhlYW Q+RG6ICXDgO67jcTWwnV6p R1SCRLwCPxomECSVBQtNIw EnlsNyUD9gcLDvMIKr IC8+VV7lDUGjVlxriOWjb3 B4xRS4D15gao8fDTzfcHJ6 SLUrHhQfutalw9yceOi4IS cuNmluOyBt VABusE45UJH8mL73Hq88yM IsaHZmr8lruJb8OdXoDLLu ZWF5yJfuJFkmx8DxMLPwW0 8ceRNbj9J4 OATrdIapbQRzNgWiqDN7vQ 0mXRvezsizl4wlvmkvGiw2 ev26qVSap7U0dCT6Y3Dujh W3FWVyfPKp IkhidBDLtH5mflzjv7jucn noUxDnJZUnVMe7TTs5TEBn cTweHsXiRY45GLT0LIEtta NcR4SyTEXo sAqkGkX6b7Y0Yo4BL6TUKi ccM3NLZCMHOKdndRW+PC90 hy81X1HuEtjzXmk5CQIxBA N3rHY6yB3l WIHxPAacc7O5cVU1T2Djwe Mlku3jw6ecKHIiQZljF34u ePYox8B6GLUzcRC0WRBvaF gfFsLvrJ59 Oyc+XGUmuAejv6UeWckwd2 pfz7wghAn5IcopNJUnygRw yIulKKJ7z2IlRr2qIVGxrY E1wAJ1gC2n KsDeNgS6UHpgU022OwZigK LdExiqR96jV7EyqKC+PHRy Nbz3IGKesLkyKP1vV5ZrTE RpbmctbGVm hLruZR3kHQTqngxpCQWrqE 7zOGFvT5l3DyEbQuL0OSkc W9QiWZHmbxblXx85pN7ySk TpYjN2KPup B7NqlkT0JHOmmACoWXxhST J3R34oc2B6RRZrVLCyADT2 lBR8aF8toTllqnfvgRNztH sgdmVydGlj QGrsNSxyR347CUEyzZpxPp NvZGluZyBEYXRlOiAgMDYv MTcvMjAyNDwvdGQ+PHRkIH I4aUouMNBi nZRmNFzgDe5xmXtwnPnsLZ 3lWXHufsyoZNTqsG8gRZKv tUZcsVxkSA5vFJNocinbk1 34PeKeXAO9 RSWfuIAfI5DrsM0aQjUdRN NuOEJmV5SrrDTqCDowC702 MCmlLfV4LYIgbvRgP0DhLW FsaWduOiB0 w8W0Wj1Kk6UpowaaN5SpmE YhSlFlRlcsOMs0E4KnNrwf dHI+PN10CURqVO99YMd1MU C4aBeeKVbx UADyB5IadR6cUwDwJVPeJE RkOyc+PHRhYmxlIHdpZHRo OHxnNRGeQmYpuZjxCU5hBf 9yZGVyLWNv iTmxhHNcBqBwi9ahMQYxXY plQS4jaNqlB5VzdTS2LMLs b8n9Hh39W52eT3VocAE+PG VmoLS7zOK6 lD9zIbYaYcC1KMrcH694Ki LrtEPiDzxjo0cld2eitMe9 WbN3EYUzjeQkjZubWZU3d3 UfHl71E96n IHdpZHRoPSIxNSUiIHZhbG txhu9jxF0rPx6+PGNvbCB3 aYN5rF6rAsVoMoK8XBuvA2 49InRvcCIv Rmxwr8puc4onxAb9MqSlJH YcofDzlJnhCPB7i2ZzJk42 L5AxbQtpo5WfAyj7ar70zQ Rvw7Q0vPP8 Z5VzACPstxnssAHngDfiUK 0lYQLxsuvcLYKgnC8pFFOk I0z6WsIiWkB1SIeoY3Zxee M2ZWRpdIWi ELOcjBRPmV0wxjfev7iyqk vuYwWfZEMnNQy1YYe7IZLf zMwjWjUaSTF0PjC5KOM3sK MslS0bjWis yhztyD3qPpt+INC1mIZsmX GWYN8lIvzkfYS+PHRkIHN0 zZcxUZemPHXueE1wHZGfF4 f7NwKvLmF7 BKvjT8HmiqD6QWSatOFvSI FitQEGlI8jlcgvc7kgwvbz EgPiDZKeYSo9CKs7RVKzxT duOiBsZWZ0 YvU7SBZ3pGTitT6nsFoysl ljnS4lZwl+QmlydGggRGF0 ISz4A3AsWkx1BQKbjFulSG 0ncGFkZGlu Kr5kcHuzxAjjZO5eRWChli chx407AfYuv7vlFRJgcVGl ZOtoHIW1Y04br0K7TPQrMB HpVWK9tXM0 kR1lkOmzwfitaUGnoZzpfg NttQykHAxkVSzgY961TJKl nHvfJwHoHBx1D6LhZvz9TB TcnVdgFW3g sOCgZXkfWh9zeNbafTosWN 6rRFIadrqjs871FvYhn6ls LUXeaEWjHPqePPU0E64vq0 I5RAUxKLGn IVN1rRA2bE4knIdkxesweA VmdDsgdmVydGljYWwtYWxp L153SOWpmTqpIrFviYn3Z5 CuAzy4MMMi sYghSO3ljZRaSDveAg2pwC qgpCmuIJ4vKHPacaups331 LzBcr6tcTABprOVoNBrlBB C1V81tb5R3 YMBcVBYvYQV3yKR8rT6ruC lnbjogbGVmdDsgdmVydGlj FZnkBLyfJ854GZXthRbdQj BhdGllbnQg QQqgGRh6P7NhFrbfaPI+PC 57IVPoDJ50zLRpoUKtn6bu qWx2LyXtKUVxMBH8fNgiAY csf3ZcIYTi J34fuWSbh4W0TZVafHlpqX XfJlWihMH6cQ4xGWsptfsq r4vbexsuHdbav2nqav43zY 60C73eOMdp ZHRoPSIzMCUiIHZhbGlnbj 1aqN8sFi8+RJSsgPX2xYX5 uU5bVXIzHcP9UDixH592Wh RvcCIvPjxj v5imy4gbvDz7QdC5TWOasf IdcHejUVJ3b5JaXj23F27z IHdpZHRoPSIyMCUiIHZhbG pxhw3ofK9r Ii8+NMDaeFC0lTU7bA3lAv BdZmK6LVneW986DtIaxLKf NqqoK28eR5ThsJM+PHRyPj u3ODVwiVhi KI0tuEDgFIosNc5zHWH5Aq CuXfFmFAjjN5KnJRRsjtnm krtweGJ3JUMeWYMkjU11Ts 9udDogMTBw gGATuS7njlmqi5cxnabtNl KsYPNzAEa0ZTb5JJNhfOaj OuLiXAV0GrB0ZXD5mPDxuM 1hbGlnbjog gU7sP6UwCJKfgpvzYb60fX 2eAaIbLrR1VYanPnv+Q1JB C1LINqDvFQFETKJRAmZuXS lDSEVMTEU8 F1ZnQwq6LBDviKarDF5vxQ BaLIfwUm8loWfhkRqjHM1z OASqkyywPGQevA5bSHUjeG BsyBdvXY7y LSDzttogz938EkYhRCC1AW HdyMBsQ4SrdK1pEvUyKFUz TXWgE8AvkREoQDeyQ477CR dnHhX4DJHa mxIdB4ZcJMRpzEfoStV5q1 I9Td3wAi3tIQ7hJRw2PP83 AA94iNRhf6J2rAG6F3AaTZ Rpbmctcmln yEG4BZQnVYXdlF41iXZbWM lcVj2sv1L5u861EQEsVAXz gP75Pw0oxImnOUZfrNVWzZ 5vhslzg0ar shgqGxYpDZMdBSi9XZk3MN BjbHktArXbAVI0BuA4OGD2 dEQffS8arTwolflttI2tCu c+MjUgWWVh dgW5B1ZjXzo5CTXuzLjeCE 1boDUfEOsvFn0yaHudzCva XZ7kZMEypymgTOBarF3gSO JvdHRvbTog NK4eGUKvlzrlb518PuTpVQ C6NJQoxDFtW6IclP4tGzJd TGPoYQQrZ8QmnREsDXhnE8 64NPeqErQ5 NNNoqeHcA2TrGJYwcXocTs R9o3N8Iy0KAW0ETAQ8Y2Fe Huc8VNUkbDgpHT5lrJYgVY xfWa1ntMxl xAteME3uHCUyqkoeIHCliN 7vTLDxuHFofKxpLV0oXODv zikmc058DgPyKUE0GLVrgL HsF9MsyJ1l BgAvCVQjUJYnZ8BhpNOeNT xlX482WDltKiC8DHWvzwBg E6EbUSCjaJuoYlH9f2R0Gs 5PUDwvdGQ+ WP87ut77C7QaKyusAee2YO KoRFB2wGZ9iA4jGBAdJJhs z4O3zRO1S8DyhmPsmc1jf2 xsYXBzZTog E09zdEYxi9W5CMAonLX1RU DzoMqlWbRjgV24Fzb+PGNv wFgzo5EsMogun5cbv8pyvM f5NqJhRRBf wqKvfOeqRGB9g6JjJn75M9 9sIHdpZHRoPSIzMCUiIHZh cUufia7apC4fHg8+PGNvbC C4yKS9wQ7i OuCtPlF3XPslC292SgHnyI EfMbbob4zuy1mybRo5MnHa LHWehaMwoRpjWMI2j1SdPa 22X2HjdDcf t1XgBxf7mu42iMAdo4Q3fM E8N6WqRFOzudnjgXIhcZzd LS9lUAAxohhfUGUduS7iIP KnU9u2VoAs LaQ6DGibS2UonzL2WHJprF UzNCSdqHGTeM1jjgogo0lq zwkeFrJkGOMaXYz1EXk2OG FsaWduOiBs VGA0MyV5NPU3yEHzyI6ugT kzblmcdT9lOxm+DMb5b6sd dFCzVD5uoIL5WS16MD71pY Ghp4N6xOQ8 S4TyDZPvutrdttfvnBV4QO CrTFNvhQ53Uv5waQeiNx4n AQAdSRL9IQNidSDoF2NyyY 9yOiAjMDAw SCWuB9BksISkEZknW594OQ bwGeI0FAQbfyBmZ6MzTGRi vMumYdD8r0V9Kt7SJV73TB 24TX93rTTi o6G7eDB7H1RqQCZhefyqdp sodLO6OQQiJVNyxM29Ku6b rJchQe0vOAQhLWE7SUQexR LoR6WzvY4b YdEoDXUgOKPsA4HihCBcHU cvK614AVkuUnY0PVWfxjVk M2NlQGKsuRieVfP9w7N7Rj 6MEp83XN89 LT35eVTfp9T1eLN0R0UjGA DekgoqdpvreKO5KQZcAQUt lT46Fu1dqZewSz1wSVXiDJ B0CGNknEWq X9IieM2uUnOeRXJrGWNrE0 IjzECpXRazN576HFzrObY9 WJBdiyTgF5GmZCSgvOvdPx Y3e9G4Sm0X TFxcnir5V0ZbOymoiUB+PC 87OYSgMW43cXPqdCBvm6et jBd3RtApJBQcKTN1rWmtAI mif0DgYCDl Y29 (more content not included)... [facility] Progesterone LCon 02-15-2024 Progesterone LC 18.8 ng/mL Invalid Interpretation Code [facility] Comment on above: Result Comment: Foll icular phase 0.1 - 0.9 Luteal phase 1.8 - 23.9 Ovulation phase 0.1 - 12.0 First trimester 11.0 - 44.3 Second trimester 25.4 - 83.3 Third trimester 58.7 - 214.0 Postmenopausal 0.0 - 0.1 Performed At: [facility] [id number] Sarah Beal PhD Ph:[phone] Performed By: #### [id number] #### [facility] (DEFAULT) [address] [place] [address] Provider Orderson 02-14-2024 Provider Orders [id number]#[id number] 0OTGTIFF [facility] Coding Summaryon 01-19-2024 Coding Summary HTMLBase 64 FfjfqyfmPPb5vJf+PGhlYW Q+UP6SAURyK73umWPzeS3w W2XVWGyHJtteQJTUEAmUDc ClnkXoVD3kjPWqZLMr IC8+ZL4dXLDpNgnqcWSfg3 Y4qTC3T45zjg8oEJvmfQQ7 DDBiYkPuglmsl0gmbFu7TW cuNmluOyBt ETCryE82EDE3nS37Fv08aI QfbQVbh7ggfVd1ExLpCCAl NPY7vZuoPKfbw1LnDNRzO5 2xkISxz9I5 CCRwoGcbbTDrLwRiiOC2zG 6mCRhcmlpky5vybyliBit6 lk69qGAmr4L9wTF4C7Fmmx V9JMKupTGl ZsnxkJPZcT1argyig4bzlg azQiQcUBSiBWh6RGj8KJLx xIheByEsGN53WVJ3CHJtkm EgV7ZcVOYt nPosPsW6s2C4Cb3GO3RJTb bwH5CKLGOAEQhlpUU+PC90 gd12O0CqExsvYgo4FHEuWX C1jJX8rG4b QULdOCzkl9H7eSM9Q3Acdk Sigm5ys8krYWUlTRqpR92c vMQfu4S9LRYyiKJ1TWDneU fqFeTzgN21 Oyc+XEGwmObea8LcWjief2 fnd8lpyPt2AjnmCUMrrnWd kXhnXXF8l9EaIi6pJGLimL R9tIZ5gF9a IbXpPyY7HAoxQ107WwNzvB OlMoyjT15uD8SemSM+PHRy Czl4JDDndZicML8hU3CbGY RpbmctbGVm aAkqUV4dMSYzzwzmRJXeoR 2wYUPaZ7t6SjSaXrY1SSed H2HgDJEpscuiUd84tE1kSf BsPvZ7XTkw J7XjzrG2KEEftDDyCJimIC R9K46eb9K2NRZdYECeTNX4 zAR0oI5jbXgmjqivuPQwyY sgdmVydGlj APfnURvbX302LJTtyHbfFf NvZGluZyBEYXRlOiAgMDUv MTYvMjAyNDwvdGQ+PHRkIH O3jLbzJNFj vWNgBDsnDn5cgIxvkCxhWJ 0cMXEmaribFSPysS7qVDNi kYXaoJrrCA8rZOKyjygux5 03KjUbDYN7 KWRkeFSeY9IpzT7gTiDvCD EdKAVeL8GkvSTxDBdxV856 NZaqUxH3SLOxixUgT5ScAH FsaWduOiB0 e2C2Lk2Em7ViqulpH5RwtN YkQuRiAyrlYSp6E7EnAllw dHI+UB53LZAeLT76WDb5JV R5bUebYJjv HWGrR7UyqQ1eSzTnYAUwSU RkOyc+PHRhYmxlIHdpZHRo KEoeQAZcZbObqSmoXH5sSw 9yZGVyLWNv lDsqkTJnIaBfc3xzRYDaXE xlYP0qdCpoC9FbbZA6MAYo e3z6Ja09Z17lX6RcsOM+PG XhrHN9dHY2 pB3fMkVpEvI0HNudT436Wp AajUOhMkmnk1end5lsnFr2 MbU3SDUzhnTioKofQWW7p1 WjRw66V37u IHdpZHRoPSIxNSUiIHZhbG evvd5ifL7cRr7+PGNvbCB3 nTZ4vV8iNaGeOxN9PPjuJ5 49InRvcCIv Pzovr6ekd5milZd1WnQpBA XavnYzjYsrNAL8s3RqZh10 H2SsvFipp6EuLxl0bc97yT Ked8D8oEV4 H3QnUKSyhxukeADzuDndEK 8nIGZfqcewBDAzwY4uIHCc F0b5DeHdIrE7YEhtL1Ooxg I1MOIypUPb NAXgiYFUqA5mlhctl4ylho aaSrAiYLJdNGx8BMn9JPZe rKclIjBwCTT4JsF2XNC8dV ZdjU7rsJbx evhziA4uIhg+MAO5lAEqmQ EDNJ1vEhewbQU+PHRkIHN0 jVduMYawBMIfqM1mOITvY3 e8ZnBwKjT2 ZCczV8RivmH9OAMppNBmWK SarPIEyJ4emvfll0zleqep KbOnXCBjQAi9JJi1QTWzbF duOiBsZWZ0 HdV8GTZ7nLDrbR8zoZcvvd bldW2gRwk+QmlydGggRGF0 PEm4D8BhFpx5LRQgkQmzGQ 0ncGFkZGlu Hg8aqRrxtZemBM6fMDIcdn nxj031XoTut5rjKPPfpYJn ENkfDYI2T02kk8X0NZPbZS LpNPE3dJN1 kA7rdNguwnxhzJRppMvjau XeqFbaRWoaGVnbI831YKKz yKjzEaQmJHx8J8GzYhz6WL AskSaiOQ8v eGMoQCnxHx2mbJuvmQzwQM 0eQKNdjbabj730FyLxn4qz HMApgORhMEvwFJT2X01tf0 E2GHYtQYOr LCI0dBJ1rR9wlVtionttkU VmdDsgdmVydGljYWwtYWxp S003DNFdcClqCzCpkYq6G3 YkGvj5JCKe dApfDG8hlHErSQouDc2hzB loaZhgBT2xMSGlgqitt092 HdIwz5mkZKWkpQMfSEghBE K0X62pu7E6 JNKpZTCpYZB4hWW8oB6ewW lnbjogbGVmdDsgdmVydGlj UFpgNBkwG304FYCmvRbkGl BhdGllbnQg CNabNLr5Q1NnVthjcHS+PC 58CCMmUC14kDUndVPvm1yh gGd1EfJyJLBrMLU7pFtoBR ufp4WhXNTr J11pmTWdl0H0ZACoeOtjlL TzNvZtdIS7gI1qOVntvmvl l1hpdepuBtmdx3rdku53iQ 61Z40zESvh ZHRoPSIzMCUiIHZhbGlnbj 6rlV4mNk2+XCTcbKI9cEH7 tR7gGYFnInJ0OMfbF746Vj RvcCIvPjxj g0qba9smjVi8BgO7SCWexg AgoIgqLNL8j0KfYe95U91p IHdpZHRoPSIyMCUiIHZhbG pwry3xbZ9o Ii8+WXKcsUM3fGR2fQ4sMu EuJfQ6XPvnP711NzYpqYPj CyoeE33tP7JlzAY+PHRyPj j4MQCwvXmd UV5zeOXgKLhbSp8tVRW1Ql NdZmKyXDhtC2NgSYAgvfzp floatRJ7IOAwLKHzkS96Bp 9udDogMTBw kLEIcZ1tfrafs8gdmbvwIh OtPNUeJPx1KTm6DQRvxEne SyRdUHJ6PgA4OXQ9jSLglY 1hbGlnbjog xH8mB2UhRGPofytxLc93jA 5gYuNoIjR4UHnfGyz+Q1JB J6INJvOnMDAFRIGMNfAdJM lDSEVMTEU8 G5WrMos5KCFzrWghVG4auU AhEKwzKn7fzYoosSmwBH1j UXOgbutjPFZhoP7iQKMejO NyaLtxME6v BYLzfjcgu483FwSdXWC1WR JrxNWtJ3WzsW6yFqDaHPPh NNHeH6LrvYUpENqaI907QF riBaY4LVZj liNfP3LbZJCxaAwzLvX7w2 X3Wi0zHl8hFL5zELw1AV53 JN65rQTky2V5xXJ6O3MuWC Rpbmctcmln gUM8XOQzUZDgnI69xZYxLR jaJj1nu3C2m374MNIgVGWk nC55Ep8kcTzvTOSiwVGPbM 1xpbqsc0nj snohQzLsJFOzICh5KFl4OT DkvFhlInLaXAO3GsT7RBG9 qQQizQ5jnLuuohenvT0jGv c+MjUgWWVh ltS2S7NqYmc1SNRdqYmjYC 3szGUqCPffIp1sjMlhlIrl XJ1dMONoanfwLEKksX8uLB JvdHRvbTog QM2kYZMgrrwzq480DbGgLL J6SWCueHXmY8LxiV8cEsHu NXRqPXHzO4IqnHKxPLlsH0 53TPihRvV8 FBVgffJmC2ZaNZKaaKqeJf J9r4T7Ax9CQH2IIFF7N0Bm Jgm0THUmqSepYI4ovSDjIS nlVy1jnXbc zSonOX8vHZAvhzwzJNZozP 3qSQKidPXghIgwUI8pZTIm tofor525RcXpLBH7HVTliY DvQ2PalL5x ZxAhYGAnXLIeF3ZhcFLbLW mzP226ORqpJcB8AZLeduFb Y2KjVWOkzPnoWbW6n5L0Yd 5PUDwvdGQ+ YP72xh50B8SmTucdNgf0SP GqFRZ6mGY8cX3tMUWsYEsj r9F5nON7J2FitqEyml7bi8 xsYXBzZTog U15twLJag7T9ZHMwsQX6TT ZulBppGyCxdQ74Ugf+PGNv jBwfu6IbQagrk3rev8dcaQ z6FaWpSYAe liBovNmzSXE7q3HqVs95Q7 9sIHdpZHRoPSIzMCUiIHZh gNppix9kbF4sWv8+PGNvbC B9yZO1zE8v YrKzDfD2NHrpP306QbZcmP DfLccby5vdy9vmpJy7BeRn WLNgfcNveWmbAPW3p4SrMn 56G4ZbqJsi u6GvKyh5uu90wDWss6G9vN S9B5IeVWVuxgnysPAqiFmy GB4iBQVtpulmZIKzhR8mGA ToY9m7TfZu OkN5TOszO2HwmyS6OWXwyU DgTJNgjYKCpR8vaulnv7hf jqmmLuNaHCPgDKu7IJh7NQ FsaWduOiBs ZYS5HdQ6XPL7yVAdqV4hhR ilhjpqsD6qVrc+WNu9k6rh pPNjCW0peDH2FR20EO46zO Lja9Y9jUV7 V8CbALNbiuujsokvxCH5DN ShCBRqdN64Em8cpGsfHs2j VVGkCUV5PITkfQJzU8DabA 9yOiAjMDAw NWXeW5GkuDKzZYtxX357RE dzZrD0ZDTecyCtO2GjCZWj wBgyXtR9t8M1Ik5DFS92AY 30QT09lSDh b5G2hVU1Y1ZvEHNafhdomn naxKS4DAHwQTRdgW44Uj8j dJzyQi5pJHFyWBF0NUTuiN YdT5JzhU9y WcJkITZpYJEoA4UaiMXwZP xpU368YHaiDpP5ZERifdKg G4AuNZVdvSakOiW5y3D7Eu 4PTg40QI68 BU73rEXux7O7qNL0V7CxDR UdbznuypejyNJ5MNBeDPZw kN99Yi0shZipOl3hKZXrIC I3QFDjdKKa T2OfwX2lUaAaADDyPPUcJ8 PhgAAhTOxrR601VZwmZzU1 LDQzvmKoJ7UuGZDqgFyiRu T1x6B7Ho4O HArppjg3X4QuZsyrlJQ+PC 02GZXjKB46iEMpvFBbh3ft pPj0MoHzRXSbEBL7gBpnOV paj5JxNSMz Y29 (more content not included)... [facility] Progesterone LCon 01-18-2024 Progesterone LC 14.5 ng/mL Invalid Interpretation Code [facility] Comment on above: Result Comment: Foll icular phase 0.1 - 0.9 Luteal phase 1.8 - 23.9 Ovulation phase 0.1 - 12.0 First trimester 11.0 - 44.3 Second trimester 25.4 - 83.3 Third trimester 58.7 - 214.0 Postmenopausal 0.0 - 0.1 Performed At: [facility] [id number] Sarah Beal PhD Ph:[phone] Performed By: #### 3 [id number] #### [facility] (DEFAULT) [address] [place] [address] Provider Orderson 01-17-2024 Provider Orders [id number] 02 [id number]#1. 00OTGTIFF Normal [facility] Coding Summaryon 12-21-2023 Coding Summary HTMLBase 64 WqmwspohLMi8dPa+PGhlYW Q+SP9ANMUjX87ppQAdjH8c K1ZYKCaAOvtmLCWFIIxXXy NwaqXeOB2zxLDeQUHc IC8+MU2nBAFxQiqmaFXcl6 D5tUA2S24usi2wEGlqkYN2 JUTwRdMawyibf9wpxCa7PQ cuNmluOyBt QCUixO55WLJ3xU98Vz40cC CooXSgi1vgkRh7OfFxKPKd NZA3xEvgPAtfq5OiYFZcH0 5cmIKqb7X2 PSJtrBlmcLUcCuJttMS0wO 2uIAagudfvc6oohddePrh7 yc46vCLag0U3bWV4P4Yzsz X1FDPnkFSb EehhmQIMyU3hvayjw6izbo keDbEfCDHuRQf2KPo9JFFt rOvdCxYcUB29ACS6XMNdwf EcX0JaVUOg iMrcLlP5h9X7Dp2JK0YHEx vgN8GQCXVWIZhqxHD+PC90 al49S2MfOcfbTkk2NTXsTA F9sPJ2iO6n ORKjCJdjc8W3oHY8B4Sfmp Chun8kb1bwECRdKNbpG14x zMCby6Q1PIAplOD8ZBCkxF boFvBecH85 Oyc+LHIzwBpbj6DhVvhhh2 bau3hgtDr7UjxtKEJagoHk cOprZMI7f5VbCt7zMJNgaX U6cRP5gO4n SoPyBkQ6GPwiL196FfExiT LlYgphO10kZ4DwdIK+PHRy Koe5GYMkvAquFV1vI6MtTW RpbmctbGVm lWoxTZ5pPBKcybiqFRNfwQ 3oESIsE3c2SxHzGhI2HJzy M6XtXGMlrymbQg98tB3yMr QcSuN7IOrl C2OxogV7NBKyuEJbMKlxBF X8L03hm8J9QPOlVDFgYDF7 xIE8lF6xhZfrthdeyGGbqJ sgdmVydGlj YXiiMYqlM879MBAmiTsnFk NvZGluZyBEYXRlOiAgMDQv MTcvMjAyNDwvdGQ+PHRkIH L5xZwiCHXc wVRtOCjuUj8tgCcuzVenFK 9qCXVsdpjlFYEwxQ4aUFSa nYGmpGzfND3cTEDfookji4 10WiMzIDM9 JLGbaRAaM1IoxE4tKwHsEX UvHVHeQ0RoyPNdQMzpK933 ZGucXrX2IPYhkfGdB7XaDM FsaWduOiB0 e2Z2Yc0Vp1HtedgoF7WroR LbZwVsZeopOOh7D9XqZdbz dHI+ZH77OCWqFH94XWg5CY G8cVwwYLqt TZMtR9WuuO4tDrArXJErBP RkOyc+PHRhYmxlIHdpZHRo OJpjKXHuGoSlkUlxCN5oDf 9yZGVyLWNv jDijpIJsAgHbu5akNCKgBQ vpFY1dpFauZ6WwoSD8CHKt l3w4Rp04Q29hO8VxbGN+PG SfcMW8fQK6 gN1kSbXvPyQ5AHadD421Wz EgpMPgUlagu2obx5gjzKc9 LzG4KVZzyoPrmWvzCMI9u6 YoMv11F53w IHdpZHRoPSIxNSUiIHZhbG ndpm7elA3cBb4+PGNvbCB3 xXF8xB1wKbJjYiT3UPmjC5 49InRvcCIv Oghww0wdk7bctQt4MsFjKZ RwvvMylTyxBUL6i0PpYs98 P0YmuYkqt7RfQbi9zl41iB Kjf6K6zTT8 R9DzXJFfsumqdUCwkUxwFB 0fEXHvwepnHKPszS1gGHMq C2x3ObZbTrA4PFsgB5Zfrf L8JFXgwPRb EHQntHXDjN7advvat0vdlx ftIxEaSTEkMNd1RHk6VYFp fFaaKuWdUVZ3XkO5YPI1fK EpdR6ofKjn snhptT4iQct+FEN0sXKnvM AIWJ3hDlduhCG+PHRkIHN0 pEkpVHdnYJKztI2aCVVtJ2 l8RlMdYbY9 NWpzF5CoheO5PHMewFKtAF TolRBAlU6mzcqua1kpaxcc PlMkGJNhARu5GWg7SLBgoJ duOiBsZWZ0 QxP3QBT3rDQrwS5drWgmae hfaV7gVij+QmlydGggRGF0 YNd1S8CaXyn6SMNnxOjyBD 0ncGFkZGlu Rz7ijFqdrQavQC2oJFXlmp qbd410XhDec2wcFQOxuEHz TWndAXK0H68vk6B2JMReFO LbFLX4bMJ2 oJ3ewEbcsiovqIRocKafcf OjuPtgLPbmEOriN456HVZe bUwqQwQeIRm5L2IpRek4TM HgeVmfGD2x kTNgHPhaKy0moMtouWznUF 3lTPPnheptt157WxFeq2wc ZMDwqIBsGWwmIDH8Y96wb1 P5AONsYODa CKF8cXS0aS7ruVxdzojpcQ VmdDsgdmVydGljYWwtYWxp I199JGHngXauKaGimJz2N7 EmLxk2DYYf aDskLB9kqJHuQNvdUg9dfP htbYtmYW7bNRTdebcqh290 HgNnw1xuRDRmxLCrQQptRD S7F78wt0E4 WPZaESToBHO2uHH0tV5lcB lnbjogbGVmdDsgdmVydGlj VYxdDCzdU450JUWryUdeAi BhdGllbnQg PVugWNc1M2ZoYfmuuYW+PC 56MMPkTV69xOAviDPqy9wj cHa9WwBgPDPwIKD4iLsuRP hgc3LlWBNq P23fqJRlp3W4ABEsxRwgrF HrZmQogNA5vD7mLNwqxkle r6ezcjqvKmocd8ldge25rZ 46O90sINhx ZHRoPSIzMCUiIHZhbGlnbj 4fwL7aOu6+CQKsyKN7tAD2 cC5xQWSpDdL0RIcjC281Dh RvcCIvPjxj c7uhb5divQf7ExZ1BDAyrc KjsVfxCIN0h5OoZn89P07n IHdpZHRoPSIyMCUiIHZhbG dpyn8zlG9y Ii8+EBKnaTD6nXN6tO5yHq AhXeX1DHonR636MdBtlAXf QuhbE38uN7VnvDK+PHRyPj t1SNJekNna DW6udXMyCPxeNq1qBWX1Lb JqRoFgDFumC4CgFXXbetce dyvtcKH5BNPyDZTudL51Rt 9udDogMTBw yLIQiC9smpkms9yilsjxZh TlUOJoNEj4YOe2SJEgkGws EeRlPKM1IeI5MDP6gZHmaM 1hbGlnbjog hP5fR9AoDGDvqximJt68cS 5lUlXfHlI8MSllVqs+Q1JB S2UNIzPhCXYDLSCJStQwBB lDSEVMTEU8 B0FhLac5CRWgpGyoNR6uwS AbGCumUp2wbFbmaQqsJW9n SVVoorbrRPIhoM2rNEMelS GoqEduIQ1d ZPZgpvceq242RlBxKPP4BQ InzSOdS7AlxH3tHwRtWGOl QKWbH4LuuWVpBPneT459RL xvViU2GQRi yiElA5GcVWZwaInjYjW7z8 I3Px5qNk1mPS0kPDn4CH85 KC41vVUdq0Y1sEB8P6HkII Rpbmctcmln aRR8GGHtGZNidQ48iMLwRB qyZx2vl4M3q718EDCmTBGe fQ96Jc9vvBukAXVprKQTdO 6sdwabv5yr vyzuAzKmCUQrQDo6KKr9EC UvpDohWyKdKWB3VkW4AHR6 pPMfzF6cpTanbbbuwA2vMh c+MjUgWWVh mjJ1M7DfHqm5HMYyxJmdOH 4owKRbFJwuXu5aoXhzrFbx QH8kKGDvybjtZKDqrU9gIW JvdHRvbTog GR7sLIWvpdket713FuKqYQ M0QLVlkKFhB0CxyR5qAiZh PJXrBZCwL9LjpIWuPVboO5 42ZHexYrL5 QFDpiuQfU7IrQFTreBljFf M3v8F3Am8REF6CYMI7J4Ot Ldq7HCLjaHknGW6djHJrVR obFz7vhQlz iEyrCJ5vXWIfskzdMPHrdW 9wTBLhtAQniObrUD2eFRYi dcjkp617DcLmDOG5QFDbmY ObA2EmxL1c TzAqYPNdAXOvF4VsaMJtPZ beZ076DBvxCzP0ATPaxdGc I6OmAEVyuPtlMxN0t4L3Wn 5PUDwvdGQ+ TI04ky51W2IbIrkkOri7UQ YhDSZ2jXO0sV4tQEAuUQki y3S3wDF4D1XetiTysg9pv2 xsYXBzZTog E82idGYur3Y2ZUDgkIZ9NB AapBrrGfOugJ45Wgy+PGNv jQqwu6AzMoknc4cgh1nkdW w1CnVgZAJh asJjkFmjTMK6c9McPt07V5 9sIHdpZHRoPSIzMCUiIHZh qXlubm4tmG6zHn4+PGNvbC R6jLG7iW0u TaGaXlG8CEngB444QeIulG SeVzfox8xez2snhJa5ZwQc VSMwwxRuuCqkLFP7i3CnQr 04Z4XqdIpq s1HaElr5zs32uIGeh9C8uG G7I0DwLVZjmzxodJBslXnk HG2gQYEosfliXHWpfG2hLA HfY5e3MbBc DmX5YAxkA9WqabA1UEXyoB KjTLQvcCGFkU9nigsde3mn cnfjLvRzXEEgJGy5CMs8RJ FsaWduOiBs LEB7EvC8XFD3cCDxwC9qmG myvpcfcX1lIgg+MUn2h0op wXWqHP1hyVS0FJ56QU52mM Qlu6O7dUW3 R1YnFCSotpmygkgzlEU7GC HmEQGvfM89Hk1giVquUa6l OWDjPLK7TRFfsVSeK1UzeP 9yOiAjMDAw ZEOjX9FhhSDfVVelM849IB vhXxK2BDBtmnHyJ2QvIXRy oVjmAhG3r1K2Oq7CHG19YS 30MK17kEZh y5N5uYH1E7MyAXWhnyvchm zxeKR2UFEuKHPxqF77Dc7q zAsuSj0wCDOhAIA4LWCvnW QfW5NiqL1m TnEnHQOnZEXuL7YacVWpKZ bqY929TNbgWrK4TPDlxgUt W5LoETIevRvfVtL7y4O4Yx 8SOl85PN10 RO34pOMyr1D8jUS2V6LiMX FyotzrampdaCD9XZRtADKt fT08Ul5xuIuqPx8kPMRxXO P8PZTkhUCs I1BaaI1kBmNoPEKbALFcG5 NjgLMkQBoaB383EBasGwK5 DDNcevDiM1KkMOSdoFaoIn S0u8B3Dq8Y YDiaebc4Q8KbGqnloFY+PC 50NYKoDN13zXJqfSCfi0xc gRu2NkDqPLPsFWA2kNfrPE gce6LxZZRq Y29 (more content not included)... Normal [facility] Progesterone LCon 12-17-2023 Progesterone LC 9.6 ng/mL Invalid Interpretation Code [facility] Comment on above: Result Comment: Foll icular phase 0.1 - 0.9 Luteal phase 1.8 - 23.9 Ovulation phase 0.1 - 12.0 First trimester 11.0 - 44.3 Second trimester 25.4 - 83.3 Third trimester 58.7 - 214.0 Postmenopausal 0.0 - 0.1 Performed At: [facility] [id number] Sarah Beal PhD Ph:[id number] Performed By: #### 3 [id number] ####[facility] (DEFAULT)[address] [place] [address] Provider Orderson 12-16-2023 Provider Orders [id number] 05 [id number]#1.0 [facility] 11-24-2023 Coding Summary HTMLBase 64 TlhdvoonNHu5zTs+PGhlYW Q+PJ2YJUPvQ02smERrkF3a W4NGRTfDBfxtYMURRXqXRb LfbgRxIB3vtFJwEKTx IC8+RL4gHGAeCpbdwPJri4 Z1zXU5L56mzv7tAZdrwPO4 RRGgSkQgyqxok7wcmJn3BG cuNmluOyBt ZMFdaO01JUP1xQ82Xx59mN FisXSdh2zoeKe0JnMmQZRf DRM4qVzsOCiht6UtBIJpL9 4xzHVsf4V5 CGTriZqqwOXiOrBrcOY4yJ 7zPHfqwlqew5lkslxeYqn5 bn90jOVri3S6dXT9V6Hixu A4MBNksIHf CvfpsGHTnB2chomma8qujv bvKkWhVNNaIGu6KAl7GFHg tDvmUlCiQV09GVB6EIEaia AfN3AhEELc kOldGaF9f4V6Oc3YA1OBVv byO5MUIDWOAMlctNI+PC90 nb86Q1WdAtpuSoi1LLJwGU B8cOU5sN8c GPIhSAcgu8W9xRB6W8Vcwx Ccbd5rc9voQIGoZOrfE95m lDTst7W6VWWlmQE9GDFytR znJfDlpV42 Oyc+GEZnfQgtn4YeRfguh5 mnd2veaUj4DdbbPMUatrNn kZgkQOS2j5HtGu8xMJXuxI T4mJJ8vA9c DaNyPoG3EKuwP094QeWgxH FtXsnaP92lA4FfeXL+PHRy Djo1AALqoXudOF2sM7GuAS RpbmctbGVm hFxtJG2xRPFwjcxeXABdkA 4zUWBmP8g8BmMzBcU1YPtd T6DzUFBaabgnIp56fT5vQa PlSwE5GHgz M0VrqrE4ACWwqPCsLKroTZ V5K33tj3X3SMMdCHRmCTN2 iCV2sL1ggSqgnrokqSOfiE sgdmVydGlj BQyfHOijL906BJTfhOjoIq NvZGluZyBEYXRlOiAgMDMv MjEvMjAyNDwvdGQ+PHRkIH U7kFfgYUPi aKYpOYysTs3roWlvrNfjLE 3zZQGqqkqtGORqiB1bLASg yPKbeFvvBD1bIPYkzktxi1 37ElKgGCR6 AWTjiLNvG9YitS7fRtSzQU DzIFVfI5GeaLOaAIecO638 NBvpOuZ3LSWiirQgE6FiAA FsaWduOiB0 j4L8Ov8Vs6KhvddvU4PueY KcTlOyCbafDQs3E0YzMkcv dHI+KO71AUNkET69OAg3RK O4dHlnOKxk MKVhX4MgmX9cCrXkVTOfKF RkOyc+PHRhYmxlIHdpZHRo OGkmBSIrAnJhzFttFR4lWq 9yZGVyLWNv fFflsWBqXwPem1waBHXvAY yaNB1pyLzaT7NjkKA0OWCp h9y7Gh59R83oB0FouNL+PG ZvbIH2gFI7 qZ7cEdPtOyA9MPmyM683Qt KwkNSwTnkrp7auy2bkzNe4 FeE2ZOLsutGmeNmcABJ1e3 VaPz97U72k IHdpZHRoPSIxNSUiIHZhbG wrag3xpL6bUg4+PGNvbCB3 hCS9uB1cQnVnLvY1GSwjJ7 49InRvcCIv Ldhnh9arp9flmPi9FxNaIT FmvtZruMlgTEJ5u4KeFp69 H6NyqWuqs7CcRac7pj11iD Mjk8X4oLR8 N4JmZLBewfmbeMIjfKdnMW 5eZPKgygjvYKIzuN5mDJSz W1w0GuYiGrZ9JMtsP1Gajd W8HZRziHZj JATwfWVUgK3zswouw7eyye hiVsOlODKjRSc5RZu1UCUd nRswQtAcPXU0SdB1EKT3lT TcdI5gxTug narlnQ6tHls+ZKI9eYErwJ EFPC0fNskgfBX+PHRkIHN0 xFdfBLsxHCGmcI0iPFQbI3 a1YoUfIuC7 KAjhD4MphmC1DGKzzJZhVY ZctZVVtG3ymbdmn4uyffuo VeZyYOMfWPi3SSh9UILchS duOiBsZWZ0 CcB4ANF6qPOdyB1kcKydza qgzZ8bTld+QmlydGggRGF0 WJa1Y6WjWtq8AEXziNnvYL 0ncGFkZGlu Gy8ljHvqtQuhWZ7aMTMcdb wxt954TvOyi4qxNHTmyYGw HMlaYKK3W15ge8U6WXUxTX VoYXG5fBQ0 hK9ebErtcyuflGCjyDhiba ToaPskTWjpFNilH829OVDm vGpmIyTaSZo4J9KyIry2JG AwqVlvZR0w yJZrSIvvYr0kjUtvnXxkYZ 1mMBWcsrqxx216GvGlp7yc CNZxeESsSMggKOV7H30lm4 P8QZOgSCCx WSN3tPA6lS4zjZeapgxyeP VmdDsgdmVydGljYWwtYWxp S126AKZxvRudYaBviKj0Z9 TzZrb5SPRe dZiaTG7koVDqKChuBp3bnQ popJecAC9gOFKhmawee012 BgTxw9oeFRXgsDAlINtpGU B7R64lt8V5 AVReALDqUBZ0dJG7rD3osU lnbjogbGVmdDsgdmVydGlj KYzlRVjcL919FXOcrOecWr BhdGllbnQg HXyjRRv3P2EsXrobtEE+PC 15NQBiBR86bRFqnQMuu2yr zZl5UoKgWPQcTOT9oOmtLV aka0MoPNKx E92jjTQjm8U5PAOqvTycvA HiHzKyyTQ1pY2gJIqhwmyp e3fftrpxUhavl8hpao70jP 55X55zGSrf ZHRoPSIzMCUiIHZhbGlnbj 8xzP6nSu4+JOPvdIH0tXO0 nA8cOXVfAfK7FFadJ394Qk RvcCIvPjxj i1xue5kanGw7UiU5CGFfps RyeRjwDSX0u2CdKi39U48s IHdpZHRoPSIyMCUiIHZhbG akzc5doD1t Ii8+CWQavBU9jUR4zX4uGg VeGdN3UBluZ008UsZbtIZs TadvX89pT2XhyPR+PHRyPj i6IFTpgNxv SO6owCEjBXjuAg1fWHQ9Bh NxAjFfMTqrU8DsWMBpekjy fuhvkGI7RRBeUAAysO40Uf 9udDogMTBw fUOMgB6cymxcz0vsrvsgDk KfIWHfONm1ABp7IKUucInt LaPaUSS8YuC8IWB6nHNqvC 1hbGlnbjog jM5hF5AjROIicevdDb27dV 0jTrSoKiU9CPxnDrk+Q1JB A1KPEsXoKPYIIXZHJuUjVV lDSEVMTEU8 J8DfZkt0LVFobAkmXF3hbI JkOBrdLe3vrFmlkVnbUI9j FRCbhqljIXLlhM5uFEXyfN YyoVwaNJ0j YZBstuepl667EaUmPRI0DR UtiOQlW6PbqQ5qSgOjGTKx KLXmB3QczQTaTIcgV139QZ owKgZ8LOGt gyYcH2RvXAUwgHiiFrC5e3 M0Ne8oCf8zUT4gNLh5CI59 FB56lWDpb7X9aXS4B1KcSH Rpbmctcmln dQC8LHKbAYFnbV51hMFaAO qeQn9gt2C4u012GKZyZEXr dB87Rn3sgBufWNEtkVZBkL 7iywjkc5ph jgapJbTzJBMeRCf5QBj5TF YhqIiySbTtUFA3DyU2CVS1 qERzuZ2pgYpgpxualF9ySx c+MjUgWWVh gdC5J5ZlRti4GVMyzWolDU 2stYKzDAbaWe7zrGhkwLxu OE4mFUKvfoacMGXzzA4vJA JvdHRvbTog TH2nWALwlkfoh359WiNwBY J7JPJqiLEfD2GgfR2pPeEc ZEHdBMElQ2DtbDSsANzkJ6 66GTgdTlO0 EIWwleRwP0ScJURtwMhhUe V7l2Q9Xr0JRE0FDRP1K5Mw Dqy4EJEbeUfvLC0ykUJrHG nvSt2sdAnx ySnsTY4cUMPdobxcASDpeK 5fDAQabWNosKtzLV5kXGWu clrhr200NoSeQJO8YBKrwS YsE1TltB8t QwXqNXMtCUZkZ2QowHWqPZ luP906ENyfTgO3LSBwfgFu L1JhXGLbvXqbKkN7i6Q0An 4EiSLcC6Hf I3h4E5BuCisetTM+PC90YW HzTI08dEEgaAYgb2uceVe5 GzTkZTZiUZU4eKiyTTaed1 YoWZGaG93w ySSrm1S7EUImcErhgJPoVz MrlYJ2yX3zTJzyfspwk0yl fsrfHhizo4tstv97oL42S5 9sIHdpZHRo IXXnXNSxQMAriIcfkx4bxW 9wIi8+UMPnsKZ6wNS2hD2t JtKpYzA9TTtwB931HbElbN DyQxvgn8of j1uaaMh4XyAzEPIjweNdwG mwDWB4j0YoOv83U70rNIhe ZHRoPSIyMCUiIHZhbGlnbj 0wnO2rHr7+ OU2gp9ubkm61rS55nLJ+PH SdNNU3zValKOfrRDNowD7t JIanTbN9JKVwIfQvpC98bX LiHUgjOh5c xErkfCioPB6cMOWwmvjky6 95AeGmu0ivWBGnoZMvEAdw BFK8K93yb0R2PFLmRRLxJF Q9yIR8qX4y bGlnbjogbGVmdDsgdmVydG twWBrqLUkfZ524YUUewBxh ZgVweCGnM2lufyAORJ4oVv wvdGQ+PHRk VOH1gCpoEWzxPDVkiY9aWJ EsW7m3XvYfHwH1GQqhX0Cw ohG5ROKnmXCwIXOmmPYVkX 1piypit8cd moufQcGeMEFsWSt2HHi9EX LhhPssBrHcWYO0DwB5AAP1 oNWeiQ4gyKnlvwnrvA2iUu c+RklOOjwv dGQ+TMSyASG6mQzaHMhtDT LkaR8iUHWwA4f9BaEoOmA1 RNkoD0VdnxS0YOEblSYvBB GfdXBBfJ4y jyoew0vxvktyWmWnPXIzIB t9UEw0PXYrdHbhXdZmJDZ1 VwW3BPF2hIIitS5naTcrnc cgwI5eHvz+ TVJOOjwvdGQ+PNNxJVP3lY kkPRodVUSujW4xBUNxQ0d2 EuHxLtJ7LZbnT5TmyjN8JD JvbGQgMTBw tSBNmO4hwsttr0dqntamYx NiXMNrBCp4WIp4WBYqfZcc WbOaZNF3DxD3VXK2vEIsfY 1hbGlnbjog hV8hRzb+AUT8VIV1FD07QP 09V4RyJscbwLPanUT+PHRh YmxlIHdpZHRoPScxMDAlJy RzsLavOX3e Ym9 (more content not included)... Normal [facility] ED Clinical Summaryon 2023 ED Clinical Summary [facility] - Emergency Department [address] [place], [place] [id number] ED Clinical Summary PERSON INFORMATION Name: SHERLY ASTUDILLO Age: 23 Years Sex: FEMALE : 2000 MRN: Acct#: Visit Reason: Laceration of finger; LEFT INDEX FINGER CUT Arrival: 11/19/2023 09:14:04 Discharge: 11/19/2023 10:10:00 LOS: 000 00:56 Check In: 11/19/2023 09:14:04 Checkout:11/19/2023 10:10:00 Address: [address] [place] [id number] PCP: Anthony Gomez MD PROVIDER INFORMATION Provider Role Assigned Unassigned Daisy Freire ART PREPARATOR Nurse 11/19/2023 09:19:39 Sreedhar Cheney MD ED [...] indicated that she was using a box spring maker. She used a sharp knife, and accidentally [...] History Medical history: Resolved Ankle fracture, left ([id number]): Resolved. 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 Surgical history: Cholecystectomy ([id number])., Reviewed as documented in chart. Family history: [...] (more content not included)... Normal [facility] ED Note - Physicianon 2023 ED [...] indicated that she was using a box spring maker. She used a sharp knife, and accidentally [...] History Medical history: Resolved Ankle fracture, left ([id number]): Resolved. Ankle impingement syndrome ([id number]): Resolved., Reviewed as documented in chart. Surgical history: Cholecystectomy ([id number])., Reviewed as documented in chart. Family history: [...] and orient (more content not included)... Normal [facility] ED Note-Nursingon 11-19-2023 ED Note-Nursing Pt ambulatory back t o ED rm 6. Pt C/O Left index finger laceration. Pt states she was trying to open a box and cut the finger with a box spring maker. The wound on the index finger is a straight line of 4cm with a width of 0.2cm. States last tetanus was more than 5 years ago. Pt is A/Ox4. [facility] ED Patient Summaryon 024 ED Patient Summary [facility] - Emergency Department [address] [place] [address] PATIENT DISCHARGE INSTRUCTIONS Patient Information Name: SHERLY ASTUDILLO Age: 23 Years Date of : 2000 Reason For Visit: Laceration of finger; LEFT INDEX FINGER CUT Arrival Time: 11/19/2023 09:14:04 Primary Care Physician: Jason MCNEAL, Anthony Santo Attending Physician: Sreedhar Cheney MD Comment: Visit Diagnosis: Diagnoses This Visit Laceration of finger ([id number]) Laceration of left index finger (S61.211A) The Pharmacy at [facility] is open Tuesday through Tuesday from 9A [...] alcohol and/or drug addiction problems; contact the [facility] 28/03 Crisis Hotline -Text 3KTEL ut [phone]. If you received any narcotics, sedation, or [...] legal documents With: Address: When: Anthony Gomez [address] [place], [place] [id number] Business (1) Within 5 to 7 days [...] and treatment you received today in the [facility] Emergency Department were for an urgent problem and are not intended as complete care. It is important for you to follow up with a doctor, nurse practitioner, or physician?s pharmacy innovation assistant for ongoing care. If your symptoms [...] can reach you if necessary. [facility] Emergency Department has provided you with a complete list of medications post discharge. Please inform your national account executive/provider of your visit and for further instruction [...] Coding Summaryon 11-02-2023 Coding Summary HTMLBase 64 YfgbwrtsWDq4nJy+PGhlYW Q+SB1CWWQvF97utVGiaQ6u J2FEPUcKXiodDYKHJFuCWe PbkeZhOZ8apAHmQSLw IC8+FJ6jIGLsDrkppOXcj9 S7gEN8Q03slp7aDBtxpNY2 YTQpSwIsnjftd9kdvCa5NB cuNmluOyBt MHJctF60BGX9iG23Gq01nQ RzmSNuw2jyoZe9NxHzAFHm VGV8jXccQRulm8PjYPTnG0 8feRAdv3X4 CYBivLhqhSSrJyLkxXV1jK 1fROhxsurvi0uaumugMwm4 rb56mEKmp1W6oJJ1B9Mfrc O0WQZnuTBx VbrcmRAQzC4bomqdn8mvmc zxRsJnXYYbOEe8MJb8WFJn dFiwNxOxAV80DHE5TUIhgy XaE9BcRFQa nUqfFoZ6e1X5Fl9FQ5BLEk pwN5SJZIHQXGzzoQL+PC90 yh42R3YeBrbnPyi1QTVbKZ V0iLD8sB4j TSSbWUaxy0U2qFM7J7Rbez Smlm7kr8phPNAnHKzvP99s zRKgz1G6QMIwrQV2LZZaxU ckKyDwwO80 Oyc+TWEnsMxxs5CiHqhsc7 xxd2uxyNf8AyvgYYEfdeAp kVoyKOH0j3OvVy9yOXHnoO S7rWW8tS9m ZbGqWmG8GQbfK708YbNvzB QiGomfF45eH5YanPN+PHRy Iwz9VPBdrYyiOM8zT5GmGP RpbmctbGVm sXrkCB5xCKHxhvtkAXGksF 9gOLUkJ6z0VqLaTaU4CXtq O8SgLRIhbwhzVi22hS8aXj QtUsD5SVez N9HlcaD6PUZqqHVeHGxhBS V0N71jq1H0TJCoPIBgROP4 nVW7nH8lrRbwrkvpuHQkvA sgdmVydGlj UGimNJvfM774PRAusShtUq NvZGluZyBEYXRlOiAgMDIv MjgvMjAyNDwvdGQ+PHRkIH Z0tYmvKKWo sSTxXDwsDv7rsIrjrDwvUX 3vRFFdmwnvLOHjyZ0sEQUb vGKuyOdbER6bPCKisdwik2 10FoJnTCD0 OTYuiEDzJ1NvzC8nQxLuGG CdBTErP6PhoUZlOXqzR259 OPkvCuP8NTKeenCrU6YwAC FsaWduOiB0 h9Z8Qr3Tw8KesgndX7JbaY MfJsFmMylkZOm5E0DoAdpc dHI+IO84DGWfLF46PPj9SX Q3hWefIKzo FINpC3AxhC6uSvBbUWDqQI RkOyc+PHRhYmxlIHdpZHRo JVljHDPbTaZezVgoGL4eEw 9yZGVyLWNv nGmsyVZmMiHxi9doGLUaDN fxFO1llSkcZ4MxbEL6GUTy v1p7Pp83B16fH8GmhGT+PG FmyVH2tTJ1 oD7fIlRcPaC3AZcfG259Lk DhwBOiZaush0lrb6oncCs8 ZnZ5NGViyjBtoEkcZQS5a7 QuWw74V55r IHdpZHRoPSIxNSUiIHZhbG dsyo5uuH2jAa9+PGNvbCB3 kSB5dD0wPjWsYkE4FWwmI5 49InRvcCIv Mjjkv2kyw7lrbPc3EzObCE ZopjFeuJyaIZO5n7RvFq00 Q4YpkFjpl3JiWhg4ni68oP Dmd9C9lTJ1 E4SoHPIblyvaxMGqgBafCI 9fIAZqofakKNEyjF0gULRn Y7g1SeSzXnE0DIrjO1Ewxl A5OMAszZIe TEWtqQAFiS2oynrdd3rnkr yiKhKeQWXpARn7SJt4SXDo jWxcEoTdPSM9HzA5IZF4zK GtjN2soNpo pmjujH1iObo+FGX7nJWgtO HMMR0nWwrnrMN+PHRkIHN0 xFbzKQyzOUDmwS1eLUXkJ9 d4IlCjQdX9 BBpyI6DaojN5ZPGdxWFpDJ KpwFTVhC8ckmgmx5ohgbgz XsVmGEAdGBa2LWl3WLLtmQ duOiBsZWZ0 HkR4TSW2jMEmlM4rkIoqyi fftA8xKyu+QmlydGggRGF0 AJh0Y0NbUoy9WMTftGbfMK 0ncGFkZGlu Xs7uxWhjtHuxHH6yBDXbtp kbn256HbUlb9nrZNJwiBFx PNgwFTO4Q72zv4J1IXZeDW FiLSR2qFZ5 lZ0onKbehhmhhLQojUgkdd IrcMhkFOcfROoeG744XVNx eZgaDbKnJPx1R1MjYsk8IV SaoWjjLV2s cQVpSEyjUu7smEpoaYreMQ 8vWUKedecks882JvMid2bo LUTmwHTzFFguOXI3S37ff9 T3OHSbBWJv OXG3jOO0oI2umCdotijreO VmdDsgdmVydGljYWwtYWxp N923ZNLjnBphTjYenPn9X4 PhDez1KMWm kUsiCU2aoPSgKCyeLx7twL msbWopJN6lUOLqhsqvz253 SfApw9rdIZHzfZEvIJlvCG O1H69xs6S1 IFExKLQbKRK1lIV8cG1voJ lnbjogbGVmdDsgdmVydGlj IBphAKwyW307FJLnaWtcTf BhdGllbnQg MBbdQAk8T3QuNncsvOX+PC 98VYChQL40oADmyHWto2dk nZl7KiBcRBCkMND6wAhrAT tax0EtEJYq M36dnMTjk0V5FNTmqQlkmH SzYqTnnVA9rZ8eWEjiqjgz z3umgyohMhhwn9zalp39gT 94Z95oXMuz ZHRoPSIzMCUiIHZhbGlnbj 6meA1sQp4+KBFmsFU3lSZ9 fF4sHJTkIgH7QFxqZ364Zb RvcCIvPjxj k3gzn3vduJf0RjW4GWJmki YqvAqwVYB7q1XmPh58W31e IHdpZHRoPSIyMCUiIHZhbG yxbw1ucD6l Ii8+GHIgiXT3cAP6bO4jOl VuZaA6MOajU867HiNdaERt XapzV51iE3EfcXW+PHRyPj v5QNGclWuf BD0jpAZdKZmcNw2fVRV0Wi UvDzYyLSnsN5FnCYNyhedu lppwhDC4OUFdSILudN22Nc 9udDogMTBw hZPOgM7omnwuy9rsghwlZf VtFZRfEZl6CCx6EZCwhSaw OwGxRQM5ZrT0QVE8zVEnbO 1hbGlnbjog wN7eQ8BhJAZtqldtMu18uA 7sWvJoTnF7OQsxSoj+Q1JB W9WIXoEwBHSSNNTFEtFcAE lDSEVMTEU8 F2BrZzk1DTTzvBtbDW3guC QbEJjkLi0cvScqjXarNN4w WZUpatmqPQUuvO7gDTShkA BniBzrZW3r IVUuqbqmk831WnBoSBR7IM XxiNCaB0XlqD7vYhBbNILh XCJeY7OwoCCfSIouH594LV bcTvG8FDQk jfTcI5XdOCPofLczPfU4v2 G2Xe9fPq5qMO3hWGs5NX31 MK02aSQxu9R8rHO7F1IwDR Rpbmctcmln wFD7BVFwUSTyqP93qJJoYK wxSq8ym8A9u218XPWpQIYo cU21Hf1nlWyhGZOcmBPWsA 4kqoaam5aq ubvtHoYcBMXoFGg4SRt3HG HacGyzRgKxNYL2PmD1ZTC5 iVRaaN7kjMakocminR5aGf c+MjUgWWVh ogB1W6DoYay3YRBxaEmqJR 0vhJOhBAhgVi0eaAsucAcf RN9xCPFiocvsXLRtdP9hFS JvdHRvbTog HR9tXFKaenwwy453XaGjGM S3NGRovQMcX6XrqW5vEwAs AQHpJZOnF8PxpGLdMWywC5 68JMihAlK5 GNLalaCqY7NiTKLpnBkvWu U3g0N2Sd4NKV6PVZV5M0Xy Cou6NQPzaDubIS1nxCMwAI oiQk3upYos oApuCA7aCKKzxslbOVUcpJ 7fEQWntKKggDgvGW7gKLIz haizw469TmOwYWS2QAUnoK OcC3YzzY5v TmOdIRLvUDIeF7ElyGTlBH vkA590ATxjWqC0CHHgppQa A6CpTQGuoLscHuA5v3U3Jf 5PUDwvdGQ+ GD82wp42I7VrIgdfKmk5MC RoVMV7eYU9yB7eURTjXXlv j3T1kBV1Y9EegzMmnx2af7 xsYXBzZTog L19lzHCyh1W3PBGlnVM7QW RqbLsqBeTbzY19Guc+PGNv oLeae4HeUxcou6bdu9ndpB g3ZgCaIQOs nbAfxRtjAFT4j3OgXp78F6 9sIHdpZHRoPSIzMCUiIHZh wHcgvn8amF3oMp5+PGNvbC U4yIZ7dO2m NnXfVlP1ZZogG853GcLzxB GqOhnsq6kpm6saePi3CbXs FIFvtcHfvAnrEBR8s7AxXa 32Q6FloPei a0DsCsj8te48pLJlr5I4iF M0V9WrCKRuayazhXNhqOsc MX0gEBTlhdwdTARzyA9yQE BgS4m4ZzPn GuS7UMjjO8UsybE5YBQziK WxGMQshTKBeT7wuonwp1mb ubvmDkYiKWJbJDw6NBc0UL FsaWduOiBs INZ6DfL8VEB1pPFhmG4ewR bxdpvhqA3wKzq+BDt8v9ve hGMbUX3hbNC2CE16JG60dF Niq6A3pNU8 Z6EhSDAmkufrqwtecWR4MK DcSPMhcE17Ct0ywWxhSv4y FAJsBRQ0AYMvgUHpZ7PicY 9yOiAjMDAw NMRxX5FifJQhASqhU800AO iyVnB2IRKouaNsI6CyDXPm rWcvGkD3j8H7Mn1QQO96TE 17JA36tRTg r5I5gTV3S6YsNUNlmegmrf kcjQA9JKLkTLHlsM59Vs2y kQabZr6dPXEnYTL4AAOlzD FeX8RkkO6n XeXfWQDsCPCrY1VmwGJiQQ dzP845XIwcNgX2JQUrfvUb Q0RqIPBwdKqqLcN6a8Y5Dq 6CCs28KP28 WX26aLQjr6O9xEP5H0DhIC EfdgkbtedwgUX3IDIsZUSt rS73Xb1szSctCk5fWOFrGD P1FXNjhVEs B8IuaU5pChZpVAZnSTQxW7 LtmRNrWRnpJ884PVtaMdA6 CSKyinNfW1QlCLTctZvdEp D6e8X7Sr7Y FWfwvph9M3CfMuxavND+PC 21RYTaAD25iJVjqAHww7mv iLb7SoGwIZYlSZV0tPpfWS pug7LgMZXz Y29 (more content not included)... Normal [facility] Dehydroepiandrosterone (DHEA ) LCon 11-02-2023 Dehydroepiandrosterone (DHEA) LC 456 ng/dL Invalid Interpretation Code 31-701 [facility] Comment on above: Result Comment: This test was developed and its performance characteristics determined by [facility]. It has not been cleared or approved by the Food and Drug Administration. Performed At: [address] [id number] Gustavo Donis MD Ph:[phone] Performed By: #### 1 [id number], 74914983, 73916830, 9959819, 81664229, [id number], 5322091, 9291015, 4569606 ####[facility] (DEFAULT)[address] [place] [address] Miscellaneous Testing LCon 0 11-01-2023 [facility]. Test Result LC COMMENT Invalid Interpretation Code [facility] Comment on above: Result Comment: Test Ordered: [id number] Anti-Mullerian Hormone (AMH) Anti-Mullerian Hormone (AMH) 5.22 ng/mL ES For assays employing antibodies, the possibility exists for interference by heterophile antibodies in the samples.1 1.Aubree Norton Interferences in Immunoassays - still a threat. Clin. Chem. 2000; 46: 7255-4041. This test was developed and its performance characteristics determined by [employer]. It has not been cleared or approved by the Food and Drug Administration. Reference Range: Females 20 - 25y: 1.23 - 11.51 Median 4.70 AMH concentrations of >= 1.06 ng/mL is correlated with a better response to ovarian stimulation, produced more retrievable oocytes and higher odds of live according to Kelli et al. Fertility and Sterility. 2010: 94:5299-3709. The current AMH test method correlates with [...] exclude an AMH-secreting ovarian tumor. Performed At: [employer] [facility] [id number] Sarah Beal PhD Ph:[phone] Performed At: [facility] [address] [place] [id number] Wagner Forte MD Ph:[phone] Performed By: #### 1 [id number] ####[facility] (DEFAULT)[address] [place] [address] Dehydroepiandrosterone Sulfa te LCon 10-29-2023 DHEA-Sulfate LC 252.0 ug/dL Invalid Interpretation Code 84.8-378.0 [facility] Comment on above: Result Comment: Perf ormed At: [address] [id number] Sarah Beal PhD Ph:[phone] Performed By: #### 1 [id number], 81782385, 05920697, 2463691, 48561318, 8034217025, 1309065, 9994037, 3493007 ####[facility] (DEFAULT)[address] [place] [address] FSH and LH LCon 10-29-2023 FSH LC 5.9 mIU/mL Invalid Interpretation Code [facility] Comment on above: Result Comment: Adul t Female Range Follicular phase 3.5 - 12.5 Ovulation phase 4.7 - 21.5 Luteal phase 1.7 - 7.7 Postmenopausal 25.8 - 134.8 Performed At: [facility] [id number] Sarah Beal PhD Ph:[phone] Performed By: #### 1 8614814, 14171700, 59438218, 6547795, 06107928, 8165486903, 5267023, 8364405, 5036532 ####[facility] (DEFAULT)[address] [place] [address]18 LH LC 5.5 mIU/mL Invalid Interpretation Code [facility] Comment on above: Result Comment: Adul t Female Range Follicular phase 2.4 - 12.6 Ovulation phase 14.0 - 95.6 Luteal phase 1.0 - 11.4 Postmenopausal 7.7 - 58.5 Performed By: #### 1 [id number], 61193439, 85976394, 3181874, 75427595, 2624558405, 7905755, 1763125, 0098652 ####[facility] (DEFAULT)[address] [place] [address] .Auto Diff 1on 10-28-2023 Auto Dixon % 6 % Normal -12 [facility] Comment on above: Performed By: #### 1 5858292, 60390759, 44808224, 3823861, 76894101, 4566640884, 9808762, 9472219, 6588902 ####[facility] (DEFAULT)[address] [place] [address] 95529 Baso Abs# 0.1 x10 Normal 0.0-0.2 [facility] Comment on above: Performed By: #### 1 5349497, 52098445, 62136759, 1676848, 70078437, 5404733876, 4886305, 4458109, 2747783 ####[facility] (DEFAULT)[address] [place] [address] 98173 Basophils/100 WBC (Bld) 0.8 % Normal 0.2-2.0 [facility] Comment on above: Performed By: #### 1 8204474, 03108528, 27833010, 5314475, 38501514, 7693541802, 3094891, 7651446, 7944085 ####[facility] (DEFAULT)[address] [place] [address] 47054 Eos Abs# 0.3 x10 Normal 0.0-0.4 [facility] Comment on above: Performed By: #### 1 5322546, 03516972, 03480822, 0418381, 58911452, 0799363827, 7314476, 6482868, 4281916 ####[facility] (DEFAULT)[address] [place] [address] 61635 Eosinophils/100 WBC (Bld) 3.9 % Normal 0.9-4.0 [facility] Comment on above: Performed By: #### 1 2216786, 09720758, 93934915, 0706680, 62834623, 5933824490, 1146709, 0137170, 5123492 ####[facility] (DEFAULT)[address] [place] [address] 44938 Lymph Abs# 3.2 x10 High 1.3-2.9 [facility] Comment on above: Performed By: #### 1 4588783, 47997402, 73320451, 4872466, 66268729, 0752700783, 5356628, 2419087, 2443947 ####[facility] (DEFAULT)[address] [place] [address] 76404 Lymphocytes/100 WBC (Bld) 42 % Normal 14-48 [facility] Comment on above: Performed By: #### 1 5809904, 12482441, 82698608, 3439712, 83855205, 5251983728, 6864973, 7625949, 7182898 ####[facility] (DEFAULT)[address] [place] [address] Dixon Abs# 0.4 x10 Normal 0.0-0.8 [facility] Comment on above: Performed By: #### 1 2271389, 84242452, 46608419, 4081673, 34350354, 5193726799, 4459407, 8367934, 9300066 ####[facility] (DEFAULT)[address] [place] [address] Neut Abs# 3.5 x10 Normal 1.5-9.2 [facility] Comment on above: Performed By: #### 1 8775573, 69612815, 33745655, 1839933, 74122555, 2781637851, 3274922, 4112561, 9349845 ####[facility] (DEFAULT)[address] [place] [address] Neutrophils/100 WBC (Bld) 47 % Normal 44-88 [facility] Comment on above: Performed By: #### 1 3502877, 42733205, 98113838, 4749527, 75230145, 7450719403, 6198712, 4947772, 7830381 ####[facility] (DEFAULT)[address] [place] [address] CBC w/ Auto Diffon 4 Erythrocyte distribution width (RBC) [Ratio] 13.6 % Normal 11.5-15.0 [facility] Comment on above: Performed By: #### 1 2820487, 89636721, 87474469, 9342428, 86156120, 9339002742, 3627674, 3131281, 0013757 ####[facility] (DEFAULT)[address] [place] [address] Hematocrit (Bld) [Volume fraction] 42.1 % High 33.7-40.4 [facility] Comment on above: Performed By: #### 1 7101741, 69659625, 48139362, 3603147, 74953241, 7552956894, 4658577, 0239117, 9622217 ####[facility] (DEFAULT)[address] [place] [address] 05945 Hemoglobin (Bld) [Mass/Vol] 14.1 g/dL Normal 11.3-15.9 [facility] Comment on above: Performed By: #### 1 5221582, 33498077, 00104636, 8737624, 07650104, 5398919869, 5518097, 4653271, 4649898 ####[facility] (DEFAULT)[address] [place] [address] 91816 MCH (RBC) [Entitic mass] 29 pg Normal 24-34 [facility] Comment on above: Performed By: #### 1 7089567, 38408707, 99892148, 0312503, 24414126, 3356941205, 9727274, 9348173, 0801636 ####[facility] (DEFAULT)[address] [place] [address] 09032 MCHC (RBC) [Mass/Vol] 34 g/dL Normal 26-37 [facility] Comment on above: Performed By: #### 1 7049380, 18788835, 59627705, 9600590, 22598586, 9995207054, 5442202, 6614911, 5228454 ####[facility] (DEFAULT)[address] [place] [address] 19008 MCV (RBC) [Entitic vol] 86 fL Normal 81-100 [facility] Comment on above: Performed By: #### 1 8795173, 01416015, 90133349, 6365192, 87002887, 0277723081, 9561737, 2751506, 4035537 ####[facility] (DEFAULT)[address] [place] [address] 14329 Platelet 383 x10 Normal 138-427 [facility] Comment on above: Performed By: #### 1 1439919, 41987361, 21651358, 1444975, 22108379, 4241402095, 1553743, 8645132, 9659381 ####[facility] (DEFAULT)[address] [place] [address] Platelet mean volume (Bld) [Entitic vol] 7.9 fL Normal 6.3-10.2 [facility] Comment on above: Performed By: #### 1 1422504, 63398570, 82668408, 8135685, 05753437, 7328319698, 3047994, 1195865, 4525487 ####[facility] (DEFAULT)[address] [place] [address] RBC 4.91 x10 Normal 3.70-5.30 [facility] Comment on above: Performed By: #### 1 2039413, 37668487, 31748540, 4441892, 37931505, 3467653938, 9291638, 9210124, 5495786 ####[facility] (DEFAULT)[address] [place] [address] WBC 7.4 x10 Normal 3.5-10.5 [facility] Comment on above: Performed By: #### 1 0498575, 79045819, 83186588, 7778954, 39756895, 9868267885, 4501039, 3707544, 3422400 ####[facility] (DEFAULT)[address] [place] [address] Man Diff? Auto Invalid Interpretation Code [facility] Comment on above: Performed By: #### 1 9114028, 89650373, 50337659, 0662331, 57367804, 0211743667, 5836522, 7790445, 3154243 ####[facility] (DEFAULT)[address] [place] [address] Free T4on 10-28-2023 Free T4 [Mass/Vol] 0.73 ng/dL Normal 0.61-1.12 [facility] Comment on above: Performed By: #### 1 6087554, 75418520, 29740804, 4706604, 44204084, 0472642842, 7974608, 6294876, 7786395 ####[facility] (DEFAULT)[address] [place] [address] 17869 HgbA1c Standardon 10-28-2023 .Hb 14.4 Invalid Interpretation Code [facility] Comment on above: Performed By: #### 1 4666598, 13142357, 65597555, 7207374, 60350230, 9867930206, 9245545, 3687785, 9280391 ####[facility] (DEFAULT)[address] [place] [address] 96928 .Hgb A1c 0.48 g/dL Invalid Interpretation Code [facility] Comment on above: Performed By: #### 1 4703360, 58981048, 26029560, 0124085, 85908233, 5126020798, 8452282, 5665973, 4669316 ####[facility] (DEFAULT)[address] [place] [address] Glucose [Mass/Vol] 102 mg/dL Invalid Interpretation Code [facility] Comment on above: Performed By: #### 1 2089915, 75980146, 66603120, 5016289, 91880882, 9940603020, 6986527, 0708547, 2968008 ####[facility] (DEFAULT)[address] [place] [address] HbA1c (Bld) [Mass fraction] 5.2 % Normal 4.6-6.2 [facility] Comment on above: Performed By: #### 1 5802593, 50970550, 78326275, 8975486, 32005149, 7895728189, 0237664, 3394569, 4995566 ####[facility] (DEFAULT)[address] [place] [address] Miscellaneous Testing LCon 0 10-28-2023 Test Code LC [id number] Invalid Interpretation Code [facility] Comment on above: Performed By: #### 1 [id number] ####[facility] (DEFAULT)[address] [place] [address] Test Name LC anti-mullerian hormone Invalid Interpretation Code [facility] Comment on above: Performed By: #### 1 [id number] ####[facility] (DEFAULT)[address] [place] [address] Provider Orderson 10-28-2023 Provider Orders [id number] .[id number] Normal [facility] TSHon 10-28-2023 TSH Qn 2.34 m[IU]/L Normal 0.45-5.33 [facility] Comment on above: Performed By: #### 1 9595864, 74332526, 76219721, 6563958, 20305602, 2005941765, 4697449, 1524509, 0939519 ####[facility] (DEFAULT)[address] [place] [address] hCG Quantitativeon hCG Quantitative <0.6 Normal 0.0-0.6 [facility] Comment on above: Result Comment: Post -Menopausal Reference Range is: 0.1-11.6 mIU/mL Performed By: #### 1 2144327, 54023888, 96254412, 2909109, 74863728, 3979766188, 6318818, 0535149, 6261943 ####[facility] (DEFAULT)[address] [place] [address] Mikael 01-04-2022 L -- ---- Specimen: [id number] Received: 01/05/22 Status: QUOC Garber Num: [id number] Spec Type: Surgical Subm Dr: Rodney Lema MD Tissues: A Skin-Other than Cyst, tag, debridement or plastic repair (SCALP) Procedures: HE Stain/5, Gross/Micro L4 ---- Patient Age/Sex Location Account Attending Physician ---- Sherly Astudillo [facility] [id number] Rodney Lema MD ---- SPEC NUM: [id number] RECD: 01/05/22 STATUS: QUOC GARBER NUM: [id number] JANE: 01/04/[address] [facility] [address]: Rodney Lema MD ENTERED: 01/05/22-5 [facility]: Dea,Lab SPEC TYPE: Surgical DEPT: MAG [...] 10% Neutral Buffered Formalin (ESTELA/YJ) ---- Specimen: [id number] Received: 01/05/22 Status: QUOC Terrynavin Num: [id number] Spec Type: Surgical Subm Dr: Rodney Lema MD Tissues: A Skin-Other than Cyst, tag, debridement or plastic repair (SCALP) Procedures: HE Stain/5, Gross/Micro L4 ---- Patient: Sherly Astudillo [id number] (Continued) ---- Specimen: [id number] Received: 01/05/22 (Continued) Signed (signature on file) Debora Cintron MD 01/07/22 0930 ---- Specimen: [id number] Received: 01/05/22 Status: QUOC Garber Num: [id number] Spec Type: Surgical Subm Dr: Rodney Lema MD Tissues: A Skin-Other than Cyst, tag, debridement or plastic repair (SCALP) Procedures: HE Stain/5, Gross/Micro L4 ---- Patient: Sherly Astudillo Yue [id number] (Continued) ---- Specimen: [id number] Received: 01/05/22 (Continued) Microscopic Description Six glass slides with H E stained material and two IHC stained slides have been examined. The microscopic findings support the above pathologic diagnosis. ANALYTE SPECIFIC REAGENT (ASR) DISCLAIMER: The use of one or more reagents in the above tests is regulated as an analyte specific reagent (ASR). The performance characteristics were determined by the [facility]. Immunohistochemistry assays have not been validated on decalcified tissue. Results should be interpreted with caution given the possibility of false negative results on decalcified specimens. They have not been cleared by the [place] Food and Drug Administration. The FDA has determined that such clearance or approval is not necessary. CPT Codes 82045, 66211, 10054 ---- ---- Specimen: [id number] Received: 01/05/22 Status: QUOC Garber Num: [id number] Spec Type: Surgical Subm Dr: Rodney Lema MD Tissues: A Skin-Other than Cyst, tag, debridement or plastic repair (SCALP) Procedures: HE Stain/5, Gross/Micro L4 ---- Patient: Sherly Astudillo [id number] (Continued) ---- Signed (signature on file) Debora Renzo (more content not included)... [facility] Cytology Cervical or vaginal smear or scraping studyon 12-26-2019 [facility] Vital Signs Date Time Vital Sign Value Performing Clinician Faci lity 11-06-2024 08:46-0500 Body mass index (BMI) [Ratio] 44.01 kg/m2 Emily TALBERT Work Phone: [facility] 11-06-2024 08:46-0500 Body weight 127.46 kg Emily Lundy PA Work Phone: [facility] 11-06-2024 08:46-0500 Diastolic blood pressure 76 mm[Hg] Emily Lundy PA Work Phone: [facility] 11-06-2024 08:46-0500 Systolic blood pressure 128 mm[Hg] Emily Lundy PA Work Phone: [facility] 10-22-2024 14:46-0500 Body mass index (BMI) [Ratio] 43.04 kg/m2 Cole Celeste DO Work Phone: [facility] 10-22-2024 14:46-0500 Body weight 124.65 kg Cole Celeste DO Work Phone: [facility] 10-22-2024 14:46-0500 Diastolic blood pressure 70 mm[Hg] Cole Celeste DO Work Phone: [facility] 10-22-2024 14:46-0500 Systolic blood pressure 116 mm[Hg] Cole Celeste DO Work Phone: [facility] 10-08-2024 13:57-0500 Body mass index (BMI) [Ratio] 42.15 kg/m2 Emily Lundy PA Work Phone: [facility] 10-08-2024 13:57-0500 Body weight 122.07 kg Emily TALBERT Work Phone: [facility] 10-08-2024 13:57-0500 Diastolic blood pressure 82 mm[Hg] Emily Lundy PA Work Phone: [facility] 10-08-2024 13:57-0500 Systolic blood pressure 122 mm[Hg] Emily TALBERT Work Phone: [facility] 09-10-2024 14:35-0500 Body mass index (BMI) [Ratio] 40.94 kg/m2 Cole Celeste DO Work Phone: [facility] 09-10-2024 14:35-0500 Body weight 118.57 kg Cole Celeste DO Work Phone: [facility] 09-10-2024 14:35-0500 Diastolic blood pressure 76 mm[Hg] Cole Celeste DO Work Phone: [facility] 09-10-2024 14:35-0500 Systolic blood pressure 118 mm[Hg] Cole Celeste DO Work Phone: [facility] 08-08-2024 11:09-0500 Body mass index (BMI) [Ratio] 39.37 kg/m2 Cole Celeste DO Work Phone: [facility] 08-08-2024 11:09-0500 Body weight 114.03 kg Cole Celeste DO Work Phone: [facility] 08-08-2024 11:09-0500 Diastolic blood pressure 72 mm[Hg] Cole Celeste DO Work Phone: [facility] 08-08-2024 11:09-0500 Systolic blood pressure 120 mm[Hg] Cole Celeste DO Work Phone: [facility] 07-10-2024 10:45-0500 Body mass index (BMI) [Ratio] 38.37 kg/m2 Cole Celeste DO Work Phone: [facility] 07-10-2024 10:45-0500 Body weight 111.13 kg Cole Celeste DO Work Phone: [facility] 07-10-2024 10:45-0500 Diastolic blood pressure 74 mm[Hg] Cole Celeste DO Work Phone: [facility] 07-10-2024 10:45-0500 Systolic blood pressure 118 mm[Hg] Cole Celeste DO Work Phone: [facility] 06-07-2024 13:09-0400 Body mass index (BMI) [Ratio] 38.53 kg/m2 Nom Nurse [facility] 06-07-2024 13:09040 Body weight 111.58 kg Nom Nurse [facility] 06-07-2024 13:09-0400 Diastolic blood pressure 72 mm[Hg] [facility] Nurse [facility] 06-07-2024 13:09-0400 Systolic blood pressure 116 mm[Hg] [facility] Nurse [facility] 05-08-2024 11:32-0400 Body height 170.2 cm Cole Celeste DO Work Phone: [facility] 05-08-2024 11:32-0400 Body mass index (BMI) [Ratio] 39.16 kg/m2 Cole Celeste DO Work Phone: [facility] 05-08-2024 11:32-0400 Body weight 113.4 kg Cole Celeste DO Work Phone: [facility] 05-08-2024 11:32-0400 Diastolic blood pressure 80 mm[Hg] Cole Celeste DO Work Phone: [facility] 05-08-2024 11:32-0400 Systolic blood pressure 124 mm[Hg] Cole Celeste DO Work Phone: [facility] 10-06-2023 08:53-0500 Body height 170.2 cm Cole Celeste DO Work Phone: [facility] 10-06-2023 08:53-0500 Body mass index (BMI) [Ratio] 38.28 kg/m2 Cole Celeste DO Work Phone: [facility] 10-06-2023 08:53-0500 Body weight 110.86 kg Cole Celeste DO Work Phone: [facility] 10-06-2023 08:53-0500 Diastolic blood pressure 72 mm[Hg] Cole Celeste DO Work Phone: [facility] 10-06-2023 08:53-0500 Systolic blood pressure 120 mm[Hg] Cole Celeste DO Work Phone: [facility] Encounters Encounter Date Encounter Type Care Provider Facility Start: 11-06-2024 End: 11-06-2024 Bamboo flowsheet Emily TALBERT Work Phone: [facility] Start: 11-06-2024 End: 11-06-2024 Bamboo flowsheet Emily TALBERT Work Phone: [facility] Start: 11-06-2024 End: 11-06-2024 Office outpatient visit 15 minutes Emily TALBERT Work Phone: [facility] Comment on above: Third trimester preg maicol; 30 weeks gestation of ; Excessive growth affecting management of in third trimester, single or unspecified fetus; Diabetes mellitus screening Start: 11-06-2024 End: 11-06-2024 ambulatory EMILY LUNDY Not Available Start: 10-25-2024 ambulatory Anthony Gomez Facility: [facility] Start: 10-24-2024 End: 10-24-2024 Clinisync Result Encounter Emily TALBERT Work Phone: [facility] External Department Unsolicited Start: 10-24-2024 End: 10-24-2024 Clinisync Result Encounter Emily TALBERT Work Phone: [facility] External Department Unsolicited Start: 10-24-2024 End: 10-24-2024 ambulatory [facility] Start: 10-22-2024 End: 10-22-2024 Office outpatient visit 15 minutes Cole Celeste DO Work Phone: [facility] Comment on above: 28 weeks gestation o f ; Third trimester ; Excessive growth affecting management of in third trimester, single or unspecified fetus Start: 10-22-2024 End: 10-22-2024 ambulatory COLE CELESTE Not Available Start: 10-22-2024 End: 10-22-2024 Bamboo flowsheet Cole Celeste DO Work Phone: [facility] Start: 10-22-2024 End: 10-22-2024 Bamboo flowsheet Cole Celeste DO Work Phone: [facility] Start: 10-18-2024 End: 10-18-2024 ambulatory [facility] Start: 10-15-2024 End: 10-15-2024 Chart abstracting Scanning Provider External [facility] Start: 10-08-2024 End: 10-08-2024 Bamboo flowsheet Emily TALBERT Work Phone: [facility] Start: 10-08-2024 End: 10-08-2024 Bamboo flowsheet Emily TALBERT Work Phone: [facility] Start: 10-08-2024 End: 10-08-2024 Office outpatient visit 15 minutes Emily TALBERT Work Phone: [facility] Comment on above: Third trimester preg maicol; 26 weeks gestation of ; Diabetes mellitus screening Start: 10-08-2024 End: 10-08-2024 ambulatory EMILY LUNDY Not Available Start: 10-06-2024 ambulatory [facility] Facility: [facility] Start: 09-24-2024 ambulatory [facility] Facility: [facility] Start: 09-10-2024 End: 09-10-2024 Clinisync Result [...] gestation of Start: 09-10-2024 End: 09-10-2024 ambulatory COLE CELESTE Not Available Start: 09-10-2024 End: 09-10-2024 ambulatory [...] encounter procedure Cole Celeste DO Work Phone: [facility] Work Phone: Start: 08-08-2024 End: 08-08-2024 ambulatory COLE CELESTE Not Available Start: 07-31-2024 End: 07-31-2024 Clinisync Result Encounter Cole Celeste DO Work Phone: [facility] External Department Unsolicited Start: 07-31-2024 End: 07-31-2024 Clinisync Result Encounter Cole Celeste DO Work Phone: [facility] External Department Unsolicited Start: 07-10-2024 End: 07-10-2024 Bamboo flowsheet Cole Celeste DO Work Phone: [facility] Start: 07-10-2024 End: 07-10-2024 Bamboo flowsheet Cole Celeste DO Work Phone: [facility] Start: 07-10-2024 End: 07-10-2024 Office outpatient visit 15 minutes Cole Celeste DO Work Phone: [facility] Comment on above: Second trimester pre gnancy; 13 weeks gestation of ; Nausea and vomiting in ; Diabetes mellitus screening Start: 07-10-2024 End: 07-10-2024 ambulatory COLE CELESTE Not Available Start: 07-05-2024 End: 07-05-2024 ambulatory Spenser Tellez [facility] Facility:[facility] Start: 07-04-2024 End: 07-04-2024 Clinisync Result Encounter Cole Celeste DO Work Phone: [facility] External Department Unsolicited Start: 07-04-2024 End: 07-04-2024 Clinisync Result Encounter Cole Celeste DO Work Phone: [facility] External Department Unsolicited Start: 06-07-2024 End: 06-07-2024 ambulatory [facility] Celeste Nurse [facility] Comment on above: GA: 8w6d Start: 06-01-2024 End: 06-01-2024 ambulatory Anthony Gomez Facility:[facility] Start: 05-28-2024 End: 05-28-2024 Emergency department patient visit Anthony Gomez Facility:[facility] Start: 05-28-2024 End: 05-28-2024 ambulatory Anthony Gomez Facility:[facility] Start: 05-08-2024 End: 05-08-2024 Bamboo flowsheet [...] encounter procedure Kenya Richter DDS Work Phone: [facility] Comment on above: Abnormal tooth erupt ion (Primary Dx); Impacted third molar tooth Start: 04-24-2024 ambulatory KENYA RICHTER Facili ty:[facility] Start: 03-14-2024 End: 03-14-2024 ambulatory [facility] Facility:[facility] Start: 02-14-2024 End: 02-14-2024 ambulatory [facility] [facility] Start: 01-17-2024 End: 01-17-2024 ambulatory [facility] Facility:[facility] Start: 12-16-2023 End: 12-16-2023 ambulatory [facility] Start: 11-19-2023 End: 11-19-2023 Emergency department patient visit [facility] Facility:[facility] Start: 10-28-2023 End: 10-28-2023 ambulatory [facility] Facility:[facility] Start: 10-06-2023 End: 10-06-2023 Office outpatient new 20 minutes Cole Celeste DO Work Phone: [facility] Comment on above: Irregular periods/me nstrual cycles; PCOS (polycystic ovarian syndrome); Insulin resistance Procedures Date Procedure Procedure Detail Performing Clinician Start: 11-06-2024 Urnls dip stick/tabl et rgnt non-auto w/o micrscp Emily TALBERT Work Phone: Start: 10-24-2024 ALL CBC WITH AUTO DIFF Emily TALBERT Work Phone: Start: 10-22-2024 Urnls dip stick/tabl et rgnt non-auto w/o micrscp Cole Celeste DO Work Phone: Start: 09-10-2024 [facility] DRUG SCREEN RAPI D (URINE) Cole Celeste [...] (RZV) Vaccine (1 of 2) [facility] Start: 11-20-2024 End: 11-20-2024 Patient encounter procedure 11/20/2024 8:30 AM EDT Routine [facility] [address] [place] [id number] Cole Alonso DO [address] [place] [address] [facility] Start: 11-06-2024 End: 11-06-2025 Measurement of glucose 1 hour after glucose challenge for glucose tolerance test Glucose tolerance, 1 hour Lab Routine Diabetes mellitus screening Expected: 11/06/2024 (Approximate), Expires: 11/06/2025 [facility] Comment on above: Expected: 11/06/2024 (Approximate), Expires: 11/06/2025 Start: 11-06-2024 End: 11-06-2025 US biophysical profile w non stress test US biophysical profile w non stress test Imaging Routine Excessive growth affecting management of in third trimester, single or unspecified fetus Expected: 11/06/2024 (Approximate), Expires: 11/06/2025 [facility] Work Phone: Comment on above: Expected: 11/06/2024 (Approximate), Expires: 11/06/2025 Start: 11-06-2024 End: 11-06-2024 Patient encounter procedure [facility] Comment on above: Arrived Start: 10-22-2024 End: 10-22-2024 Patient encounter procedure [facility] Comment on above: Arrived Start: 10-22-2024 End: 10-22-2025 US biophysical profile w non stress test US biophysical profile w non stress test Imaging Routine Excessive growth affecting management of in third trimester, single or unspecified fetus Expected: 10/22/2024 (Approximate), Expires: 10/22/2025 [facility] Work Phone: Comment on above: Expected: 10/22/2024 (Approximate), Expires: 10/22/2025 Start: 10-18-2024 End: 10-18-2024 Patient encounter procedure 10/18/2024 1:00 PM EST Appointment [facility] [address] [place] [id number] [facility] Start: 10-08-2024 End: 10-08-2025 CBC panel - Blood by Automated count CBC Lab Routine Diabetes mellitus screening Expected: 10/08/2024 (Approximate), Expires: 10/08/2025 [facility] Work Phone: Comment on above: Expected: 10/08/2024 (Approximate), Expires: 10/08/2025 Start: 10-08-2024 End: 10-08-2025 Measurement of glucose 1 hour after glucose challenge for glucose tolerance test Glucose tolerance, 1 hour Lab Routine Diabetes mellitus screening Expected: 10/08/2024 (Approximate), Expires: 10/08/2025 [facility] Comment on above: Expected: 10/08/2024 (Approximate), [...] procedure 09/10/2024 2:00 PM EST Routine [facility] [address] [place] [id number] Cole Alonso DO [address] [place] [address] [facility] Start: 09-10-2024 End: 09-10-2024 Professional / ancillary services management 09/10/2024 1:00 PM EST Ancillary Procedure [facility] [address] [place] [address] [facility] Start: 08-08-2024 End: 02-06-2025 Alpha fetoprotein, maternal Alpha fetoprotein, maternal Lab Routine Second trimester 17 weeks gestation of Expected: 08/08/2024 (Approximate), Expires: 02/06/2025 [facility] Comment on above: Expected: 08/08/2024 (Approximate), Expires: 02/06/2025 Start: 08-08-2024 End: 08-08-2025 Measurement of glucose 3 hours after glucose challenge for glucose tolerance test Glucose tolerance, 3 hours Lab Routine Elevated glucose tolerance test Expected: 08/08/2024 (Approximate), Expires: 08/08/2025 [facility] Comment on above: Expected: 08/08/2024 (Approximate), Expires: 08/08/2025 Start: 08-08-2024 End: 08-08-2025 US for US OB ANATOMY SINGLE W US OB CERVICAL LENGTH Imaging Routine Screening, , for anatomic survey Expected: 08/08/2024 (Approximate), Expires: 08/08/2025 [facility] Comment on above: Expected: 08/08/2024 (Approximate), Expires: 08/08/2025 Start: 08-08-2024 End: 08-08-2024 Patient encounter procedure [facility] Comment on above: Arrived Start: 07-10-2024 End: 07-10-2025 Measurement of glucose 1 hour after glucose challenge for glucose tolerance test Glucose tolerance, 1 hour Lab Routine Diabetes mellitus screening Expected: 07/10/2024 (Approximate), Expires: 07/10/2025 [facility] Work Phone: Comment on above: Expected: 07/10/2024 (Approximate), Expires: 07/10/2025 Start: 07-10-2024 End: 07-10-2024 Patient encounter procedure [facility] Comment on above: Arrived Start: 07-04-2024 End: 07-04-2024 Patient encounter procedure 07/04/2024 3:00 PM EDT Office Visit [facility] [address] [place] [id number] Kenya Richter, DDS [address] [place] [address] [facility] Start: 06-07-2024 End: 06-07-2025 ABO/Rh ABO/Rh Lab Routine Missed menses , unspecified gestational age Expected: 06/07/2024 (Approximate), Expires: 06/07/2025 [facility] Comment on above: Expected: 06/07/2024 (Approximate), Expires: 06/07/2025 Start: 06-07-2024 End: 06-07-2025 Blood type and Indirect antibody screen panel - Blood Type and screen Lab Routine Missed menses , unspecified gestational age Expected: 06/07/2024 (Approximate), Expires: 06/07/2025 [facility] Work Phone: Comment on above: Expected: 06/07/2024 (Approximate), Expires: 06/07/2025 Start: 06-07-2024 End: 06-07-2025 Drugs of abuse panel - Urine by Screen method Rapid drug screen, urine Lab Routine , unspecified gestational age Encounter for supervision of normal first in first trimester Expected: 06/07/2024 (Approximate), Expires: 06/07/2025 [facility] Comment on above: Expected: 06/07/2024 (Approximate), Expires: 06/07/2025 Start: 06-07-2024 End: 06-07-2025 US Pelvis transvaginal US OB transvaginal Imaging Routine Missed menses Expected: 06/07/2024 (Approximate), Expires: 06/07/2025 [facility] Comment on above: Expected: 06/07/2024 (Approximate), Expires: 06/07/2025 Start: 06-07-2024 End: 06-07-2024 ambulatory 06/07/2024 1:00 PM EDT Initial [facility] [address] [place] [address] [facility] Start: 06-07-2024 End: 06-07-2024 Professional / ancillary services management 06/07/2024 12:30 PM EDT Ancillary Procedure [facility] [address] [place] [address] [facility] Start: 06-05-2024 Influenza vaccination Influenza Vacc ine (#1) [facility] Start: 05-08-2024 End: 05-08-2024 Patient encounter procedure 05/08/2024 11:20 AM EDT Office Visit [facility] [address] [place] [phone] Cole Alonso, DO [address] [place] [address] [place] [address] Arrived [facility] Comment on above: Arrived Start: 05-06-2024 Influenza vaccination [facility] Start: 11-03-2023 End: 11-03-2023 Patient encounter procedure 11/03/2023 8:30 AM EST Office Visit [facility] [address] [place] [id number] Cole Alonso, DO [address] [place] [address] [place] [address] [facility] Start: 10-17-2023 End: 10-17-2023 Professional / ancillary services management 10/17/2023 8:30 AM EST Ancillary Procedure [facility] [address] [place] [phone] [facility] Start: 05-06-2023 COVID-19 Vaccine ( season) COVID-19 Vaccine ( season) [facility] Start: 2019 Screening for malign ant neoplasm of cervix Pap Smear [facility] Start: 2017 DTaP,Tdap and Td Vaccines (1 - Tdap) DTaP,Tdap and Td Vaccines (1 - Tdap) [facility] Start: 2017 Hepatitis A (HAV) Vaccine (optional start 19+ years) Hepatitis A (HAV) Vaccine (optional start 19+ years) [facility] Start: 2017 Hepatitis B vaccination Hepati tis B (HBV) Vaccine (1 of - 19+ 3-dose series) [facility] Start: 2016 Adult BMI Screening Adult BMI Screen ing [facility] Start: 2016 Hepatitis C screening Hepatitis C An tibody [facility] Start: 2016 Tetanus + diphtheria + acellular pertussis vaccine (product) Tdap Booster [facility] Start: 2013 Vaccination for volodymyr n papillomavirus HPV Vaccine (1 - 3-dose series) [facility] Start: 2010 Depression Screening Depression Scre ening [facility] Start: 2010 Tobacco Screening Tobacco Screening [facility] Antimullerian hormon e (AMH) Antimullerian hormone ([facility]) Lab Routine Irregular periods/menstrual cycles Ordered: 10/06/2023 [facility] Comment on above: Ordered: 10/06/2023 Bacteria identified in Urine by Culture Urine culture Microbiology Routine Missed menses Ordered: 06/07/2024 [facility] Comment on above: Ordered: 06/07/2024 CBC W Auto Different ial panel - Blood CBC and differential Lab Routine PCOS (polycystic ovarian syndrome) Ordered: 10/06/2023 [facility] Comment on above: Ordered: 10/06/2023 CBC W Auto Different ial panel - Blood CBC and differential Lab Routine Missed menses , unspecified gestational age Ordered: 06/07/2024 [facility] Comment on above: Ordered: 06/07/2024 CHLAMYDIA TRACHOMATI S (GENITO/STI) CHLAMYDIA TRACHOMATIS (GENITO/STI) Lab Routine STD exposure Ordered: 08/08/2024 [facility] Comment on above: Ordered: 08/08/2024 Cytology Cervical or vaginal smear or scraping study Pap Smear Pathology and Cytology Routine Well woman exam with routine gynecological exam Ordered: 08/08/2024 [facility] Comment on above: Ordered: 08/08/2024 DHEA DHEA Lab Routine PCOS (polycystic ovarian syndrome) Ordered: 10/06/2023 [facility] Comment on above: Ordered: 10/06/2023 DHEA-sulfate DHEA-sulfate Lab Routine PCOS (polycystic ovarian syndrome) Ordered: 10/06/2023 [facility] Comment on above: Ordered: 10/06/2023 Follicle stimulating hormone Follicle stimulating hormone Lab Routine PCOS (polycystic ovarian syndrome) Ordered: 10/06/2023 [facility] Comment on above: Ordered: 10/06/2023 hCG, quantitative, hCG, quantitative, Lab Routine PCOS (polycystic ovarian syndrome) Ordered: 10/06/2023 [facility] Work Phone: Comment on above: Ordered: 10/06/2023 Hemoglobin A1c measurement Hemoglobin A1c Lab Routine Irregular periods/menstrual cycles Ordered: 10/06/2023 [facility] Comment on above: Ordered: 10/06/2023 Hemoglobin A1c/Hemoglobin.total in Blood Hemoglobin A1c Lab Routine Missed menses , unspecified gestational age Ordered: 06/07/2024 [facility] Comment on above: Ordered: 06/07/2024 Hepatitis B virus surface Ag [Presence] in Serum or Plasma by Immunoassay Hepatitis B surface antigen Lab Routine Missed menses , unspecified gestational age Ordered: 06/07/2024 [facility] Comment on above: Ordered: 06/07/2024 Hepatitis C virus Ab [Presence] in Serum or Plasma by Immunoassay Hepatitis C antibody Lab Routine Missed menses , unspecified gestational age Ordered: 06/07/2024 [facility] Comment on above: Ordered: 06/07/2024 HIV-1/HIV-2 antigen/antibody combination immunoassay HIV-1 and HIV-2 antibodies Lab Routine Missed menses , unspecified gestational age Ordered: 06/07/2024 [facility] Comment on above: Ordered: 06/07/2024 Luteinizing hormone Luteinizing hormone Lab Routine PCOS (polycystic ovarian syndrome) Ordered: 10/06/2023 [facility] Comment on above: Ordered: 10/06/2023 Neisseria gonorrhoea e DNA [Presence] in Unspecified specimen by ISHA with probe detection Neisseria gonorrhea DNA probe, direct Lab Routine STD exposure Ordered: 08/08/2024 [facility] Comment on above: Ordered: 08/08/2024 Reagin Ab [Presence] in Serum by RPR RPR Lab Routine Missed menses , unspecified gestational age Ordered: 06/07/2024 [facility] Comment on above: Ordered: 06/07/2024 Rubella antibody, IgG Rubella an tibody, IgG Lab Routine Missed menses , unspecified gestational age Ordered: 06/07/2024 [facility] Comment on above: Ordered: 06/07/2024 SURESWAB(R) ADVANCED VAGINITIS PLUS, TMA SURESWAB(R) ADVANCED VAGINITIS PLUS, TMA Pathology and Cytology Routine Vaginal discharge Ordered: 08/08/2024 [facility] Work Phone: Comment on above: Ordered: 08/08/2024 Thyrotropin [Units/volume] in Serum or Plasma TSH Lab Routine PCOS (polycystic ovarian syndrome) Ordered: 10/06/2023 [facility] Comment on above: Ordered: 10/06/2023 Thyroxine (T4) free [Mass/volume] in Serum or Plasma T4, free Lab Routine PCOS (polycystic ovarian syndrome) Ordered: 10/06/2023 [facility] Comment on above: Ordered: 10/06/2023 US for US PELVIS-TRANS VAG IF INDICATED Imaging Routine PCOS (polycystic ovarian syndrome) Ordered: 10/06/2023 [facility] Comment on above: Ordered: 10/06/2023 Immunizations Immunization Date Immunization Notes Care Provider Shaina marley 06-12-2020 influenza virus vacc ine, unspecified formulation Colejyoti Alonso DO Work Phone: [facility] Payers Date Payer Category Payer Medicaid [id number] 2022 Medicaid [id number] 1998 Unknown [id number] 2.16. [id number] 1998 Unknown [id number] 2.16. 840.1.031682.3.579.2.1286 1998 Unknown [id number] 2.16.8 40.1.534221.3.579.2. 1998 Unknown [id number] 2.16.8 40.1.123527.3.579.2. 1998 Unknown [id number] 2.16.8 40.1.239034.3.579.2. 1998 Unknown [id number] 2.16.8 40.1.672077.3.579.2.8 1998 Unknown [id number] 2.16.8 40.1.111356.3.579.2.718 1998 Unknown [id number] 2.16.8 40.1.375993.3.579.2. 1998 Unknown [id number] 2.16.8 40.1.195769.3.579.2. 1998 Unknown [id number] 2.16.8 40.1.488613.3.579.2. 1998 Unknown [id number] 2.16.8 40.1.940749.3.579.2. 1998 Unknown [id number] 2.16.8 40.1.369967.3.579.2. 1998 Unknown [id number] 2.16.8 40.1.957005.3.579.2. 1998 Unknown [id number] 2.16.8 40.1.418193.3.579.2. 1998 Unknown [id number] 2.16.8 40.1.416234.3.579.2. 1998 Unknown [id number] 2.16.84 0.1.694523.3.579.2.1258 1998 Unknown [id number] 2.16.84 0.1.681384.3.579.2.1258 1998 Unknown [id number] 2.16.84 0.1.026753.3.579.2.1258 1998 Unknown [id number] 2.16.84 0.1.079466.3.579.2.1258 1998 Unknown [id number] 2.16.84 0.1.948905.3.579.2.1258 1998 Unknown [id number] 2.16.84 0.1.844529.3.579.2.1258 1998 Unknown [id number] 2.16.84 0.1.740372.3.579.2.1258 1998 Unknown [id number] 2.16.84 0.1.933794.3.579.2.1259 1998 Unknown [id number] 2.16.84 0.1.880051.3.579.2.1259 Social History Date Type Detail Facility Start: 09-15-2023 End: 05-08-2024 Tobacco smoking status PRIS Ex-smoker [facility] History of tobacco use Current smoker [facility] History of tobacco use Cigarette Smoker [facility] Start: 10-06-2023 End: 11-06-2024 Alcohol intake Lifetime non-drinker (finding) [facility] Start: 09-15-2023 End: 05-08-2024 History of Social function [facility] Start: 09-15-2023 End: 05-08-2024 Tobacco use panel [facility] Start: 09-15-2023 Alcohol Comment caffeine: 1-2 cups per day [facility] Start: 2000 Sex Assigned At Not on file [facility] Tobacco smoking stat [facility] Tobacco smoking consumption unknown [facility] Start: 05-08-2024 End: 10-15-2024 Tobacco use and exposure Smokeless tobacco non-user [facility] Start: 04-20-2024 [facility] Start: 10-15-2024 Alcoholic beverage intake Ex-drinker (finding) [facility] Unknown [facility] Start: 12-03-2019 Sex Female (finding) [facility] Clinical Notes 10-06-2023 to 11-06-2024 NITSIH Rojas - 11/06/2024 8:50 AM Lin Latham LPN - 10/22/2024 2:50 PM NITISH Gee - 10/08/2024 1:30 PM Lin Latham LPN - 09/10/2024 2:00 PM EST Note Date & Type Note Facility 11-06-2024 History of Present illness Narrative Reason for Appointment: Patient ID: Sherly Astudillo is a 24 y.o. female who presents for Routine Visit Patient presents today for Return OB appointment. MEDICATIONS Current Outpatient Medications Medication Instructions aspirin 81 mg, Oral, Daily RT ketoconazole (NIZOral) 2 % cream metFORMIN XR (GLUCOPHAGE-XR) 500 mg, Oral, Daily with evening meal, Do not crush, chew, or split. ondansetron (ZOFRAN) 4 mg, Oral, Every 6 hours PRN [...] reviewed. Vitals: Estimated body mass index is 44.01 kg/m as calculated from the following: Height as of 9/3/24: 5' 7 . Weight as of this encounter: 281 lb. BP: 128/76 Patient's last menstrual period was 04/06/2024. ASSESSMENT & PLAN ICD-10-CM 1. Third trimester Z34.93 POCT urinalysis dipstick manually resulted 2. 30 weeks gestation of Z3A.30 3. Excessive growth affecting management of in third trimester, single or unspecified fetus O36.63X0 US biophysical profile w non stress test Return OB: Patient presents today for a routine obstetrics appointment. Patient is currently 30w4d . Patient states she is doing well but has complaints of being tired due to current and of swelling in both of her legs for past couple of weeks. Patient has verbalizes frequent movement. labor precautions was discussed/given and patient was instructed to perform kick counts three times a day. Orders Placed This Encounter Procedures US biophysical profile w non stress test POCT urinalysis dipstick manually resulted Follow Up: Patient is to return to office in 2 week for routine OB appointment. Documented by Bernadette Reeder MA on behalf of: NITISH Rojas documented in this encounter [facility] 10-24-2024 Note [facility] Note Reason for cardiology consult: Tachycardia Chief Complaint: Palpitation and increased heart rate HPI: Sherly Astudillo is a 24 y.o. female who is 28 weeks . No prior cardiac history. No history of hypertension, hyperlipidemia or diabetes mellitus Patient reports that she is a 26-year-old and about a month ago she started noticing that her heart is racing with a heart rate up to sometimes 164 bpm associated with shortness of breath and lightheadedness. Patient does not report similar symptoms in the past. She had COVID about a year ago but the symptoms started only 1 months ago. She reports that she gained about 30 to 40 pounds this . She reports that she drinks 1-2 sodas a day but no tea or coffee. She drinks about 2 L of water a day. She reports that she sits down usually to help with symptoms. She reports associated chest pain at times. She denies nausea or vomiting. She did not have any syncope. She states that she did not have any issues with her first She denies orthopnea. She reports that sometimes she wakes up gasping for air. She does not know if she snores. She feels sleepy during the daytime. She never been evaluated for sleep apnea. She reports edema of the ankles towards the end of the day She vapes nicotine 1 vape a week. She denies any cigarette smoking or alcohol. She used to do marijuana but not during the . No other illicit drugs Cardiology ROS: GENERAL: Denies fever, chills, night sweats, weight loss. HEENT: Denies changes in vision, photophobia, changes in hearing, epistaxis, oral bleeding. CARDIOVASCULAR: She reports episodes of palpitation associated with shortness of breath and lightheadedness and occasional chest pain but no total syncope. She admits waking up during the night at times short of breath/gasping for air. She reports ankles edema RESPIRATORY: Denies SOB, coughing, wheezing GI: Denies abdominal pain, nausea/vomiting, heartburn, melena/hematochezia. RENAL: Denies dysuria, hematuria, flank pain. MSK: Denies muscle weakness/pain, arthralgias/joint pain. NEUROLOGIC: Denies LOC, weakness, numbness, headaches. SKIN: Denies abnormal rashes or bleeding. PSYCH: Denies significant anxiety, depression, sleep disturbances. Past Medical History She has a past medical history of Tachycardia. Surgical History She has a past surgical history that includes Cholecystectomy. Social History She reports that she has been smoking. She uses smokeless tobacco. She reports that she does not currently use alcohol. No history on file for drug use. Family History Family History Problem Relation Name Age of Onset Diabetes Mother Diabetes Maternal Grandmother Diabetes Maternal Grandfather Allergies Patient has no known allergies. Medications Current Outpatient Medications: aspirin 81 mg EC tablet, Take 81 mg by mouth in the morning., Disp: , Rfl: 1-POUJ-KODAM ACID-OM3 ORAL, Take by mouth., Disp: , Rfl: Last Recorded Vitals Visit Vitals BP 128/83 (BP Location: Right arm, Patient Position: Sitting) Pulse 85 Ht 1.702 m (5' 7 ) Wt 125 kg (276 lb) SpO2 99% BMI 43.23 kg/m??? Smoking Status Every Day BSA 2.43 m??? Physical Examination: GENERAL: alert and oriented x3, well developed, in no acute distress. HEAD: atraumatic, normocephalic. EYES: SALINA, EOMI. NECK: trachea midline, no JVD present, no carotid bruits present. CARDIAC: S1, S2 present. RRR. No murmur, rubs, or gallops. RESPIRATORY: CTAB, no increased effort of breathing, no rales, rhonchi, or wheezing. ABDOMEN: soft, nontender, nondistended. EXTREMITIES: no lower extremity edema, peripheral pulses are 2+ bilaterally. No rash/skin discoloration present. NEURO: strength/sensation equal and symmetric in bilateral upper and lower extremities. PSYCH: appropriate mood, affect, and judgement. Labs: 07/04/2024 White blood count 11.8, hemoglobin 13.7, hematocrit 40.3, platelets 378 next line HbA1c 5.2% Last Images: EKG today 10/23/2024 showed normal sinus rhythm with sinus arrhythmia, heart rate 76 bpm, LVH by voltage, no T or ST changes, borderline EKG Assessment and Plan: Palpitations associated with lightheadedness and shortness of breath and occasionally chest pain with any activity. Heart rate noted to be as high as 164 bpm 28 weeks Dyspnea on exertion Obesity, BMI 43.23 kg/m??? Possible sleep apnea Plan: Check TSH, free T4, free T3, CBC, BMP, and magnesium 48 hours Holter monitor Echo to evaluate for cardiomyopathy Patient was advised to continue with increased fluid intake and to avoid caffeine and alcohol Patient was also advised to sit down or lie down immediately if she feels light headed Follow-up in 4 to 6 weeks Angel Luis Evans MD,[facility] 10-22-2024 History of Present illness Narrative Reason for Appointment: Patient ID: [...] nursing note reviewed. Exam conducted with a coffee host present. Vitals: Estimated body mass index is 43.04 kg/m as calculated from the following: Height as of 05/08/24: 5' 7 . Weight as of this encounter: 274 lb 12.8 oz. BP: 116/70 Patient's last menstrual period was 04/06/2024. ASSESSMENT & PLAN ICD-10-CM 1. 28 weeks gestation of Z3A.28 POCT urinalysis dipstick manually resulted 2. Third trimester Z34.93 POCT urinalysis dipstick manually resulted 3. Excessive growth affecting management of in third trimester, single or unspecified fetus O36.63X0 US biophysical profile w non stress test Patient presents today for a routine obstetrics appointment. Patient is currently 28w3d with a Estimated Date of Delivery: 01/11/25. Patient to have NST/BPP to have started. Orders sent to [facility] Scheduling and [facility] Hospital to reach out to patient to schedule. Patient to return to clinic in 2 weeks for routine OIB appointment. Documented by Rose Latham LPN on behalf of: Cole Alonso DO documented in this encounter [facility] 10-08-2024 History of Present illness Narrative Reason for Appointment: Patient ID: Sherly Astudillo is a 24 y.o. female who presents for Routine Visit Patient presents today for Return OB appointment. MEDICATIONS Current Outpatient Medications Medication Instructions clotrimazole (Mycelex) 10 MG jacob 1 lozenge(s), Oral, 5x/Day, x 10 day(s), # 50 lozenge(s), 0 Refill(s), 10/16/24 8:59:00 AM TAX ASSOCIATE, Pharmacy: [facility] [id number], 1 lozenge(s) Oral 5x/Day,x10 day(s), 170.18, cm, [...] of: NITISH Rojas documented in this encounter [facility] 10-06-2024 Note Patient Education Ma terials Follows: [...] Follow these instructions at home: ? Take cbzj-fbz-agqufpn and prescription medicines only as told by [...] provider. Document Revised: 11/30/2021 Document Reviewed: 11/30/2021 [employer]SchoolNotebook Patient Education ? 2023 [employer]. Infectious Disease Oral Thrush, Adult Oral thrush, [...] infection (more content not included)... [facility] 09-24-2024 Note Patient Education Ma terials [...] these instructions at home: Medicines ? Take afrg-qft-laxjvwm and prescription medicines only as told by [...] and water are not available, use hand sanitation worker cleaning equipment. ? Do not touch your eyes, nose, [...] a (more content not included)... [facility] 09-10-2024 History of Present illness Narrative Reason for Appointment: Patient ID: [...] nursing note reviewed. Exam conducted with a coffee host present. Vitals: Estimated body mass index is [...] Cole Alonso DO documented in this encounter [facility] 08-08-2024 History of Present illness Narrative Reason for Appointment: Patient ID: [...] Endometriosis Mother Magnolia Renetta Diabetes Mother Magnolia Jackson Depression Father Hypertension [...] Cole Alonso DO documented in this encounter [facility] 07-10-2024 History of Present illness Narrative Reason for Appointment: Patient ID: [...] nursing note reviewed. Exam conducted with a coffee host present. Vitals: Estimated body mass index is [...] Cole Alonso DO documented in this encounter [facility] 07-05-2024 Note Patient Education Ma [...] and use condoms. General instructions ? Take nuoe-gwe-babrtxh and prescription medicines only as told by [...] provider. Document Revised: 02/19/2021 Document Reviewed: 02/19/2021 mySchoolNotebook Patient Education ? 2023 [employer]. [facility] 06-07-2024 History of Present illness Narrative Reason for Appointment: Patient ID: [...] Vag-Spont Obstetric Comments Last pap smear 12/26/19 [facility] w/Dr. Leblanc Current Medications: has a current [...] both done at the same time at [facility] at 10 weeks . Pt desires zofran due to nausea in this . Follow Up: Patient is to have labs drawn at directed and return to office for initial OB appointment with provider. Patient may call office as needed with any concerns or questions. Nurse Visit Completed by: Bernadette Reeder MA documented in this encounter [facility] 05-28-2024 Note Education Materials Orthopedics [...] not too tight. General instructions ? Take bbes-nxo-yaxsgdh and prescription medicines only as told by [...] provider. Document Revised: 11/09/2021 Document Reviewed: 11/09/2021 mySchoolNotebook Patient Education ? 2023 [employer] Sciatica Sciatica is pain, weakness, tingling, [...] . (more content not included)... [facility] 05-28-2024 Note Patient Education Ma terials Follows: [facility] 05-08-2024 History of Present illness Narrative Reason for Appointment: Patient ID: [...] Cole Alonso DO documented in this encounter [facility] 04-24-2024 History of Present illness Narrative Images from the original note were not included. documented in this encounter [facility] 11-19-2023 Note Education Materials Caregiving Sterile Tape [...] and water are not available, use hand sanitation worker cleaning equipment. ? Change your dressing as told by [...] these instructions at home: Medicines ? Take hovb-qah-xsrlclg and prescription medicines only as told by [...] informatio (more content not included)... [facility] 10-06-2023 History of Present illness Narrative Reason for Appointment: Patient ID: [...] nursing note reviewed. Exam conducted with a coffee host present. Vitals: Estimated body mass index is [...] PCOS/insulin resistance and [facility] [place]. Documented by Rose Latham LPN on behalf [...] [facility] Diagnosis 28 weeks gestation of Third trimester state, incidental Excessive growth affecting management of in third trimester, single or unspecified fetus documented [facility]* Diagnosis Third trimester state, incidental 30 weeks gestation of Excessive growth affecting management of in third trimester, single or unspecified fetus Diabetes mellitus screening Screening for diabetes mellitus documented in this encounter [facility] on filedocumented [facility] Purpose Family History No Family [...] Referral Specialty Diagnoses / Procedures Referred By Darke sharma Referred To Contact Oral Surgery Diagnoses Abnormal tooth eruption Impacted third molar tooth Kenya Richter, DDS [address] [place] [address] Referral ID Status Reason Start Date Expiration Date V isits Requested Visits Authorized [id number] Pending Review 04/24/2024 04/24/2025 1 1 Scheduling [...] your procedure, you will be contacted with [id number] costs or next steps. All self-pay payments [...] the procedure: You also MUST have a forklift driver/escort >18yrs old present to take you [...] and content) DATE CREATED AUTHOR 01/08/2022 [facility] DATE CREATED AUTHOR AUTHOR'S ADRIENNE SPENCER 09/23/2024 [facility] DATE CREATED AUTHOR AUTHOR'S ORGANIZ ATION 10/20/2024 [facility] DATE CREATED AUTHOR AUTHOR'S ORGANIZ ATION 10/27/2024 [facility] DATE CREATED AUTHOR AUTHOR'S ORGANIZ ATION 11/05/2024 [facility] DATE CREATED AUTHOR AUTHOR'S ORGANIZ ATION 11/07/2024 [facility] EPIC Reason for Visit (unrecogniz ed section and content) Reason Comments Discuss cycles Reason Comments Amenorrhea Reason Comments Routine Visit Reason Comments Well Women Visit Routine Visit STI Screening Reason Comments Abdominal Pain Care Teams (unrecognized sec tion and content) Cellular Equipment Repairer Relationship Specialty Start Date End Date Anthony Gomez MD [address] [place] [id number] PCP - General Pediatrics 10/06/23 Cellular Equipment Repairer Relationship Specialty Start Date End Date Anthony Gomez MD [address] [place] [id number] PCP - General Pediatrics 10/06/23 Cellular Equipment Repairer Relationship Specialty Start Date End Date Anthony Gomez MD [address] [place] [id number] PCP - General Pediatrics 10/06/23 Cellular Equipment Repairer Relationship Specialty Start Date End Date Anthony Gomez MD [address] [place] [address] [id number] PCP - General Pediatrics 10/06/23 Cellular Equipment Repairer Relationship Specialty Start Date End Date Anthony Gomez MD [address] [place] [address] [phone] PCP - General Pediatrics 10/06/23 Cellular Equipment Repairer Relationship Specialty Start Date End Date Anthony Gomez MD [address] [place] [address] [id number] PCP - General Pediatrics 10/06/23 Cellular Equipment Repairer Relationship Specialty Start Date End Date Anthony Gomez MD [address] [place] [id number] PCP - General Pediatrics 10/06/23 Cellular Equipment Repairer Relationship Specialty Start Date End Date Anthony Gomez MD [address] [place] [address] [phone] PCP - General Pediatrics 10/06/23 Cellular Equipment Repairer Relationship Specialty Start Date End Date Anthony Gomez MD [address] [place] [address] PCP - General Pediatrics 10/06/23 Cellular Equipment Repairer Relationship Specialty Start Date End Date Anthony Gomez MD [address] [place] [address] PCP - General Pediatrics 10/06/23 Cellular Equipment Repairer Relationship Specialty Start Date End Date Anthony Gomez MD [address] [place], [place] [phone] PCP - General Pediatrics 10/06/23 Cellular Equipment Repairer Relationship Specialty Start Date End Date Anthony Gomez MD [address] [place] [id number] PCP - General Pediatrics 10/06/23 Cellular Equipment Repairer Relationship Specialty Start Date End Date Anthony Gomez MD [address] [place] [id number] PCP - General Pediatrics 10/06/23 FOR RECORDS [...] BE BASED ON THE PRIMARY CLINICAL RECORDS. [facility]. provides no warranty or guarantee of the accuracy or completeness of information in this document.
== END 2024-11-08 13:49 | disposition home or self-care (01) ==
LOC: CARD 13:48
PROVIDERS: PCP Family Medicine; Visit Provider Obstetrics & Gynecology
DX: R06.02 Shortness of breath (principal); R00.0 Tachycardia, unspecified; O26.893 Other specified pregnancy related conditions, third trimester; Z3A.30 30 weeks gestation of pregnancy
CPT/HCPCS: 93306

== ENCOUNTER 2024-11-12 10:58 | Outpatient (OUT) | payer MEDICAID, SELFPAY ==
--- NOTE | 2024-11-12 11:02 | US_ITS ---
[facility] [place] [id number] Patient Name: SHERLY ERICKSON MRN: [id number] date: 2000 Sex: F Assigned Patient Location: Current Patient Location: Accession/Order Number: [id number] Exam Date: 11/12/2024 13:57 Report Date: 11/12/2024 13:58 At the request of: JACKIE FOREMAN DO Procedure: US OB BPP w non-stress BIOPHYSICAL PROFILE: CLINICAL INFORMATION: Excessive growth COMPARISON: Pelvic ultrasound 06/07/2024 There is a single live intrauterine gestation in breech presentation. The reported gestational age is 31 weeks 3 days. The heart rate [id number] beats per minute. FINDINGS: TONE: 1 or more episodes of activity extension and flexion of extremity or opening and closing of the hand [Y] 2/2 GROSS BODY MOVEMENTS: 3 or more discrete body or limb movements [Y] 2/2 BREATHING MOVEMENTS: 1 or more episodes of breathing lasting at least 30 seconds [Y] 2/2 JET: A single deepest vertical pocket of amniotic fluid greater than 2 cm [Y] 2/2 JET: 20.7 cm . This is in upper normal range. Total score: 8/8 US/US OB BPP w non-stress IMPRESSION: NORMAL BIOPHYSICAL PROFILE Impression dictated by: Bailey Beasley M.D.11/12/2024 1:58 PM Dictation Location: [place] [address] Electronically authenticated by: [id number] Y Date: 11/12/2024 13:58
--- OUTSIDE RECORDS SUMMARY | 2024-11-12 11:06 | XMS_ITS | CCD ---
Author Organization [facility] Care Team Providers Care Pharmaceutical Process Engineer Name Role Phone Anthony Gomez MD Primary Care Provider [phone] Unavailable Primary Care Provider UnavailKENYA Gonzales Attending Unavailable PROVIDER, UNKNOWN Admitting Unavailable Unavailable Primary Care Provider Unavailbety ALONSO, COLE R Referring Unavailable EMILY LUNDY Attending Unavailable CELESTE, COLE Attending Unavailable EMILY LUNDY Attending Unavailable CELESTE, COLE Attending Unavailable CELESTE, COLE Attending Unavailable CELESTE, COLE Attending Unavailable CELESTE, COLE Attending Unavailable ANGEL LUIS EVANS Attending Unavailable Evonne Cheung Admitting Unavailable Evonne [...] Primary Care Unavailable Tellez PAC, Spenser Gallegos Admitting Unavailable Tellez PAC, Spenser Gallegos Attending Unavailable Anthony Gomez Attending Unavailable Anthony Gomez Primary Care Unavailable Tellez PAC, Spenser Gallegos Admitting Unavailable Tellez PAC, Spenser Gallegos Attending Unavailable Anthony Gomez Primary Care Unavailable Anthony Gomez Attending Unavailable Anthony Gomez Primary Care Unavailable Anthony Gomez Primary Care Unavailable Weininger, Larissa Y Admitting Unavailable Weininger, Larissa Y Attending Unavailable Anthony Gomez Primary Care Unavailable Weininger, Larissa Y Admitting Unavailable Weininger, Larissa Y Attending Unavailable Anthony Gomez Primary Care Unavailable Sreedhar Cheney Attending Unavailable Sreedhar Cheney Admitting Unavailable Allergies Allergy Classification Reported Allergen(s) Allergy Type Date of Onset Reaction(s) Facility (1 source) No Known Medication Allergies; Translations: [No Known Medication Allergies] Propensity to adverse reactions to drug (disorder) [facility] Repository Medications Current Medications Medication Drug [...] 50 lozenge(s), 0 Refill(s), 10/16/24 8:59:00 AM 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, Pharmacy: [facility] [id number], 1 lozenge(s) Oral 5x/Day,x10 day(s), 170.18, cm, [...] Test Name Value Interpretation Reference Range Facility Outside Recordson 11-09-2024 Outside Records [id number] Normal [facility] Urinalysis macro (dipstick) panel (U)on 11-06-2024 Bilirubin, UA Negative Negative - 4(70) +++ mg/dL [facility] Blood, UA Negative Negative - 50 Osvaldo/mcL [facility] Clarity, UA Clear [facility] Color, UA Yellow [facility] Glucose, UA Negative Negative - 2000(110) ++++ mg/dL [facility] Interpretation and review of laboratory results Normal [facility] Ketones, UA Negative Negative - 160(16) ++++ mg/dL [facility] Leukocytes, UA Negative Negative - 500+++ Edison/mcL [facility] Nitrite, UA Negative Negative - Positive [facility] pH, UA 6.5 5 - 9 [facility] Protein, UA Negative Negative - 2000(20) ++++ mg/dL [facility] Spec Grav, UA 1.02 1 - 1.03 [facility] Urobilinogen, UA 0.2 0.2 - 12 mg/dL [facility] Office/Clinic Noteon 025 Office/Clinic Note Patient: SHERLY [...] 124.010 kg Body Mass Index 42.82 kg/m2 [place] Body Weight Calculated 61.6 kg BSA Measured [...] lesion. Impression and Plan Diagnosis Tinea corporis (GKQ16-KX B35.4). Plan: Will treat with topical antifungal over the next 7 to 10 days.. Orders Orders Pharmacy: ketoconazole 2% topical cream (Prescribe): 1 zoran, Topical, Daily, for 10 day(s), 30 gm, 0 Refill(s). Orders Evaluation and Management: [id number] Office visit - established pt, Level 3 (Order): 10/25/2024 13:24 EST, Qty: 1, Tinea corporis - Eustachian tube dysfunction. Diagnosis Eustachian tube dysfunction (PVI10-HP H69.90). Course: Discussed with patient most likely some fluid behind her ear. No evidence infection. Continue to just observe.. [Electronically Signed on: 10/25/2024 14:14 EST] Jason MCNEAL, Anthony Santo [Verified on: 10/25/2024 14:14 EST] Anthony Gomez MD [facility] ALL CBC WITH AUTO DIFFon BASOPHILS ABSOLUTE AUTO 0 [facility] Basophils/100 WBC (Bld) 0.3 % 0.2 [...] (Bld) 24 % 20.5 - 60.0 % [facility] MCH (RBC) [Entitic mass] 27.9 pg 26.7 - 34.0 pg [facility]C (RBC) [Mass/Vol] 32.7 g/dL 29.9 - 35.2 g/dL [facility] MCV (RBC) [Entitic vol] 85.4 fL 81.0 - 99.0 fL [facility] MONOCYTES ABSOLUTE AUTO 0.4 [facility] Monocytes/100 WBC (Bld) 4.2 % 1.7 - 12.0 % [facility] NEUTROPHILS ABSOLUTE AUTO 6.7 High [facility] Neutrophils/100 WBC (Bld) 66 % 43.0 - 75.0 % [facility] Platelet mean volume (Bld) [Entitic vol] 9 fL Low 9.5 - 13.5 fL [facility] EO # 0.2 [facility] PLT 332 [facility] RBC 3.76 Low [facility] TB WBC 10.1 [facility] Office Visiton 10-24-2024 Follow-up visit [id number] Sherly Astudillo 2000 F Date Provider Department Center 10/24/2024 [id number]-CMOSGWANGEL LUIS EVANS Family History Problem Relation Age of Onset Diabetes Mother Diabetes Maternal Grandmother Diabetes Maternal Grandfather Family Status - Relation Status Age at Mother Maternal Grandmother Maternal Grandfather Level of Service:16055 [place] OFFICE/OUTPATIENT NEW MODERATE MDM 45 MINUTES Reason for Visit and Comments: Rapid Heart Rate [044850] - Episodes of tachycardia include lightheadedness and SOB. Denies chest pain. She says sometimes HR gets up to 160's with rest. Problem [466074] - Currently 28 weeks gestation. This is her 2nd . She denies having issues like this during first . Palpitations [475214] Shortness of Breath [051588] Dizziness [925607] Normal [facility] Urinalysis macro (dipstick) panel (U)on 10-22-2024 Bilirubin, UA Negative Negative - 4(70) +++ mg/dL [facility] Blood, UA Negative Negative - 50 Osvaldo/mcL [facility] Clarity, UA Clear [facility] Color, UA Yellow [facility] Glucose, UA Negative Negative - 1999(110) ++++ mg/dL [facility] Interpretation and review of laboratory results Normal [facility] Ketones, UA Negative Negative - 160(16) ++++ mg/dL [facility] Leukocytes, UA Negative Negative - 500+++ Edison/mcL [facility] Nitrite, UA Negative Negative - Positive [facility] pH, UA 7 5 - 9 [facility] Protein, UA Negative Negative - 1999(20) ++++ mg/dL [facility] Spec Grav, UA 1.015 1 - 1.03 [facility] Urobilinogen, UA 0.2 0.2 - 12 mg/dL [facility] C Throaton 10-08-2024 C Throat Normal throat justine isolated No pathogens isolated Normal [facility] Comment on above: Performed By: #### [id number] ####[facility] (DEFAULT)[address] [place] [address] Coding Summaryon 10-08-2024 Coding Summary HTMLBase 64 WdgvfnjnNZv0oYn+PGhlYWQ +MH2UGYEvM10rlRCynL4vG2 NMTElOSywgQVBQTElOSyIgb yYxIA1axMIeIXUy IC8+WA3cSEZhQnglsYCkl7R 3jSX2E88omq9vHZttpKO1SE CpInLhizeak0ugaRd7JPbiL mluOyBt HWAhwZ14WFO8xF10Sz82aQG ppKSdy8abiIw7VlMfXNLsHJ H6iWqtHTiwl0PiJYRxN10jj ZStf4Y7 RBWgrZocqVOdYiSwnLU0mS1 hNDgvnvwxh6wsfcanWfj7lw 27lTEjt8E0mRW3O4EyieX8F GJvbGQg DdttvRWRuU5bjrrxw0ptqgk jRrZvNPJcYWl9TRm8FBBkxQ ydCaEoVB70EJF7GTJxdyNwC 2FsLWFs qGjnZxF6o9S0Ej8LA1IYUux vB2JQUNUPYLbqvEL+PC90cj 55Y6ClBnqpXve0PXZvDTF5p ED2dW2y PWIqDOiun6O9wJJ7D0BdomM szg0dk4wyEKSnCEptK33siY Fvr1D1ZBRipVK8SPSzsTqwZ iBzaG93 Oyc+GMNplXkux2PsUwmtw3l ac2zhfAp3EnhtZBDyrlReeB llPUL0i7EgDy3kCDSufRG3h HA2xP0l MjXeEjD3USmlU625FcGamNW aFjzvK53rR7XndIK+PHRyPj j7HOSjoRvwCF2vN9VjIPQko mctbGVm iFwiUO4qGQCbsvlxZWCvvG8 xUWVkH7f6JbKyFyI4KOcnQ4 GcMZSqptysQf61qI4uDfPeT zP0SQau M5BzobZ5SWLvmDLrTKydJSA 5C79lp0M3DADqAWPgLDP5uA I8oX6fjMbubqtunDCyaTvlk mVydGlj KVgdHMriS182ANZamVwtQwJ vZGluZyBEYXRlOiAgMDIvMD MvMjAyNTwvdGQ+CTVrPHX1b WxlPSAn qRAgGOluKs9agWderWzoWB9 bGDNvmuthUMUfyT3lIGSpoV UwiEdvSY4qKFAumljwn538P iAxMHB0 QMYluPQoP7SeqB9kZlFeGVP pLDDeY8TcjWRvCXsbW396BY doYnK9RPVollJxN4EcJZJzl WduOiB0 z5V6Cf4Ok2LbzxpmJ7KnwOL cWgJsEgprVId0M5FuYjpuhV I+AH76WYYhXL82HZq8YWA2x WxlPSdi VQLwZ7VaoH3hEuJlNWEdSNJ kOyc+PHRhYmxlIHdpZHRoPS ypKWMtQfCcbNcxNC3uAa0aH GVyLWNv sQmfpTEdJoRzi2eoZJOvDWy gIC5smCtqR5MubDZ7WNRwe3 q5Ks27Q41nY9HapTE+PGNvb NT5qJO2 yG6kYoPaPlL2HHudX835XlC piWMlWzrck0ord8jyyBa1Fm L3IPGsykLgbGzvBAU7b9ObG g49L10o IHdpZHRoPSIxNSUiIHZhbGl rne4abI2zDf5+RTQkjVG6pN Q5yS8vFiBaLlA0EBpgG548R nRvcCIv Pedvy4wuw7lmwQh4GvFpGOE gbgPugOdkJMN1e0OrNj53S0 NcaGctb8HiQat9qa22wKJuf 6Z7bXQ6 G5TdJERxsiqdsYNuyPmrQP9 dGIAtayrhHKQscE6vYGKdF9 e1NeShZzZ6TIwgX6PtauF1S GJvbGQg HDMqpVKHrO4mtqmsc4jrauh gVxVwFETmZDo3LVy0QZZzrW kqNdOtAGR0DdV3KGQ5pMRyf R9kaDzm ymfnpM6aDdl+WUV5jWRgaAP BPF0gSgejyHG+TDCgZOQ2vD dlGZcbMXBfqB3eXLWoJ9x2P iAwLjA1 AWvjF9XuytE6COInaQNbWRA skYZSlA8ziylyt2juswrgUh RvZIJoBZo7XVn3BENdnQqaR iBsZWZ0 JwN1SOG9hWIgtM3jwHyarbb rpN1nJbd+PpsprXteXOV5LR n3I3BoIyz7ONSlfMljKW0ff GFkZGlu Pt9vwZmrsShlEO7yUOEulua tq222FcPzg2fkBRJavLFbVW qrVRF4R14dn0A6KHCiTCFeX BP1eJS0 wH6daNkzrihkrKOrgMpjjdR gjMdkSNiwJSayE869KXBjsN jsTuUeVIl6C6QfCfu9DRJfb FnrZK1c mVTcEVyzGf5ysEmhwTwlTG9 dJWDdazcvk799MbWwt1tnFT XioGQwQXdzGOC0P72ep7Q3E CMwMDAw SLT4dRE4lE1iuBwedcbitNO mdDsgdmVydGljYWwtYWxpZ2 02SNAdaZkqKuTmcCj5K2LnU nv1SRJc iDzxGQ7rvYEwWUdgJo9slGn nfCwrYK9vHCOiurtzv742Fn Vnj4izIYShgPZoAJjkMSD6I 92dy3I5 ADQuSFFgYGA5tCM8hJ2ldMc nbjogbGVmdDsgdmVydGljYW asYHveQ839YSJuwDznIgJyx GllbnQg ARekHIn2P8VzNuadkWX+PC9 7PJInCA25lMEwjCGlr1wokO u9CqOmESEhDTG9pByzKUvxn 3JkZXIt N70coQEps9Y9BTMzjDowkBR jYhKozKV7eR3gQHzxentzd1 bwovjdBzkzh8xdmp38jP82Y 29sIHdp ZHRoPSIzMCUiIHZhbGlnbj0 arS5wUe4+IGYpwRR6lVV0tU 2qLQNzJpK2JEkiP113HgWmw CIvPjxj j2vwy8rmxPy7GxM0WCTblrE swRhwLTW7t5WmSp06P78cJL dpZHRoPSIyMCUiIHZhbGlnb e9rdB4q Ii8+LBRjlZT0nNM9jP1dXtQ gYoY9FQxvS867RnZtrWPkOe uiQ51zX1GhyNI+FZBsPej3L CBzdHls AY2nqEYhEHpeDe3uNGT0KhK dCrRoZUdkM2WpJLJuowaqxq srpFF0RYGlMWCypC38Dm9eo DogMTBw qXORiH9uyqwyo5emnxptCqO bRDKlLLd7WYp4MJBjmLjcHb ImRYD8QfK2BZU0iXNcmC0aq Glnbjog yG8cZ6RbWWBwjakwXt00sD9 cHyGlYtO4ESlmCbm+Q1JBV0 ZPUkQsIEJSRUFOTkUgTUlDS EVMTEU8 U2FvJke0TPOitMyvKD2sdBH wMXgyQh5zhKbhwKcsFK8rJZ WbndrsVHJweW4dIGCvgPJif JacBF4a CMHjnzmeq767NcVoOSU9RDL ofQBiK3UmhK4qUkYaAWPmCM WmW8FktZDvMIncP922ZTlbC qG5YEAb loWbZ9NzVXGwfFjmVsJ8p4E 3Wz3bQb7gVF5cIXs5RE01CR 36vRViw5L1jTP8M4ArQMVon mctcmln rIM9NKPaESQczR09pRElMVx oSm1hs2G6a211AKUiGDJawE 01Zm2ptXflWWTveGDNuM2hf ghib0oa yyzsVoLkMPVnUAr5OJv4LDJ fmXmeCjCgOUU2CgU8NNT1oY UlkE7uyLjfaylyfM3nBqs+M jYgWWVh ciW5Q2TfIav9SBOrjWofHR5 czWPdOTexDx5xaIvtnGdmZD 7fOYSxbfbaRHZfvA0qEWIzu HRvbTog UU5nAYOukgwnf830ZhBtXSI 4OPVgiNLjT1YecW1eSgAhOY BuTFVsV1UesVDjJTcuK396X GxlZnQ7 PYVujdUdU7UbENTxnTnzXaY 6r1C3Eu8XQL7GFCP9F4OvEl l1TRHcqRqzMM8vaIMoWGdvS m4tdLyf rNibXK9zDNDpwrstIHXoxC0 xVXRcnZWxbTtwWR7uPKOdwg rri003KqQbWNL1WTFstQBcP 4XamM6z BzFyKCLlFWXcR6NdlKOjTCg gB728KGyxXkE2DQRnsgXmZ6 ZqUFRegEozRvN7r4A4Pf9BW DwvdGQ+ FO14sm77I0OtXtgwXit5XEI xIXS3fUU4tW8dOWWjGTpbd4 C4kHO1V0RzdiJcbs7wx4yfY XBzZTog I59otRIba2C9RQThcZP2ARS koBaiJxMqyK67Ckp+PGNvbG pcb5FyYehvk7tqd1fasJd4Q jMwJSIg zdHizHfbZLP5n5HtOj12I54 sIHdpZHRoPSIzMCUiIHZhbG ihrz8ecL4vEo8+ORXdxQK9w BD6zA3q MzSoNbX6XOgxW096TzBjkMR zHybue9tgh5myyUk5ToCaTW DaxpCxxAesYPN3w3ZwHg25F 2NvbGdy q9VcAtw0hz22bYCud0A5kKN 0A5PiYMYrnbkblVAduZshUI 2gADZwyfifXZCxgS6dISEfY 9e7IoKn UgO6STtxX1CppsU1VQNvhHU qPNFfjTBHaR8qoyoxr5abcu wqIlQeSUVdPFa3OWa9GLNfu WduOiBs IDQ2PqH4VRD1fSCukZ0tvEj dghepcZ2hWch+WEf0y3eoyO DvFQ7xlXY3MR85WP80fAPvz 8P6cFE1 B1SpRBMlytgsumjwaTB4UVY mXOMdsS43Wr2gnNxaEy0cVC RmNSK5FBQnvQXmY9QmtP2kZ iAjMDAw WCWhZ2GsnLZdGOkxA303BMq qWsT0ZPWociCpL0AiKSRroC mlAbQ7x4F3Bi5TTZ45VB37U J34aYIw f2M4rQO3W5VnGHVvcdesurj ebYF2UDElSNPjeJ74Hj0ogL jcJx5hSMHuPMZ2COZmbZJfE 0XnuB2a ClNrROZoAWHdU1OkkFYxGAo lH779YStlUyV8QICavuZqJ9 WaOUNdjHfhIdG5m7V3Ri1DA v78WN15 PI74oZTnv6L6bVB6A7AvTCE gldnmpxopaXR0BDYoTJJxqH 64Sz0srGioSq7sDZTjFNX9D FRpbWVz X2XhvW5yXdQrUXLfTZIpK0C ltYPqQFdsR902TGfoSaO9UD QtpfMnX2YxNURzkWtlIgB0s 6W6Cd9U LSkoequ8E0CiXusauYR+PC9 1IHPeFR47qEQkkGJst4hktL g9QiEhXCJkNEA5mJsjNLwec 3JkZXIt Y29 (more content not included)... Normal [facility] POCT Rapid Strepon 5 S. pyogenes Ag IA Ql (Unsp spec) Negative Invalid Interpretation Code [facility] Comment on above: Performed By: #### [id number] ####[facility] (DEFAULT)[address] [place] [id number] C Throaton 09-26-2024 C Throat Normal throat justine isolated No pathogens isolated Normal [facility] Comment on above: Performed By: #### [id number] #### [facility] (DEFAULT) [address] [place] [address] Coding Summaryon 09-26-2024 Coding Summary HTMLBase 64 MpexlnebQZp8oFt+PGhlYWQ +FQ8XECXaP39oaSPmlB6kS8 NMTElOSywgQVBQTElOSyIgb aFxYS1pmQMxNXCi IC8+NG3tETVzUxsviWEsm1V 1sHS6M41tmv2tRAewyFU0QQ GiVeZdtwrhp7rumVa2GCkoR mluOyBt EQPshT38VZQ2jQ41Ja91dNE xxIHzy3oqoQc7UeHzHHKkVF W0gDypQEaww1IgUENuP81nk PVho3C5 RFMouZlnnTIrUwLnpSX6zB4 kKPxffpqhd8fnjwumCqw1ft 24kMEjn8E4vBM3O2TiugE5C GJvbGQg KxnngLUXvT9jqwhxc3fhawv aQcWtJHWaOHs9USe2QOWmdY cbHfAjFX08JAH2XMPgffEjV 2FsLWFs aTgnSzC6j1J4Qt3VN3AVUsi vC5RZGWRHPFnkuGR+PC90cj 74K8TbAnazWay7SDRuJBI3l EI0zZ4m EHXhKHlte2Q3xQG2C6NbfhH hqu7vk9svLCIcPWrgX45spS Bkn1U1APGhwZJ4VJIclBzbU iBzaG93 Oyc+RJEsnXrdb8QiHmume8d fk1klzNm7XmdoRASfmhYqwL smBUC4j8AhVe6zLZWfwIR6i LV0oW6p GpKwTkL4BGitD751WnSfwKY tPqnsT78sS9HehUA+PHRyPj c7NEVviWoiKW5xI4NwXGVix mctbGVm rHivVX6nNDWuzulgEPKrpN7 sEBSzY0r9YbLtGhU2AMdiI8 EjHHMhdbkyOh72jP7wUgCpQ wX2CKsh V0OvroJ4MPGvdBVuHJrnASU 6P15kn5C8VLGiLOMyHJR2lL U3rN7unLaikotaoQJleSzzm mVydGlj SMiqAKqvO019CEQxgLweElH vZGluZyBEYXRlOiAgMDEvMj IvMjAyNTwvdGQ+AWFwAYP6z WxlPSAn oGVkXWmyOg5zxQlmfTsfXR9 xHTHyqwxtDIDmqX9rWZWnmY KteGcfEW3hGZVhabogm801V iAxMHB0 PCTdhQDlY3NfxU0hUsBxPYF rENVhX1AjtMUyWUpiT070LQ jrIsE9WNSwsoEvS0QuHMPko WduOiB0 p1D6Lp6Ui8KdvjfgY7LfxUP bEkLmAlolNXo1E7KdDgwrqZ I+LC74TSKdFL34BFu7UZC6i WxlPSdi LUFhY7VnkB6oLoBcWAVxGXX kOyc+PHRhYmxlIHdpZHRoPS fnTNYzEnJvgCerOA8fYs8zY GVyLWNv zGmezCBaUgGlq6ztRMOxCMm zMI4fsXecA4TtqDF2LLXwb7 y8Ye32K76kN8IwnAX+PGNvb NM1wCA4 hK0sSuKyVqK9EQatI992DfP hrUVuBpcho8dvv4ryuAm3Oi E8GYDfrnLeeJklXXH9e5FpF d41X20s IHdpZHRoPSIxNSUiIHZhbGl upy7ewH7fSg0+MYSmgCD7yS J6rX5dGxYaKfG7ETjwK829G nRvcCIv Qygzy7knm8jwiUz0LdLdIET bxxSlsEwxCDY8g9PcNe88G0 LmsAknh3NcScn4eu74iLBpj 3F4aZQ2 X3YdSSOetqoyfPVboPtvFN6 pFJHvsjqbYCUpvC6eZUCmW9 o6WmSfKdD7YLzgK7MrajB8O GJvbGQg WWHhyYRCrA8ponjxm0izgnr wHiLcBLNtSQr5AOc0JEAdoA mhGrXiQHC0IyS8DMX9pXDtb Y0ieNhw acvkmE4sPkj+QMH4mKAjyGC SHQ1dXmaeeNN+EMUtKGI6yR teNZuoQDDpkP9dCCQkV9b7G iAwLjA1 CBtiR4XeetA6CDOtbLIwHSA myHWFtG3sulejd9hfxyzxQw CaSUTyPIa4WKz4KRXooSoaF iBsZWZ0 JfM4IDU3xOTukJ6qiMpihpa coU1oCov+RvmfxNuvISL9QY r0R7PdJmc6TZBowUuiIW6hs GFkZGlu Lf7juCgnqOslKC9mPRZtklu yz102HoLml1eyJUGsdOGmRU pkNKV0C76nl5F3EEHhOJDaY OD4wIL1 aU8ibZacszfuzZUsbNiqynH jdWrhYLdlQNuiH105WFApvF paRhKfSTy6E0FyUcr7NZRdk SdwOM1l qCUyBXytYz6svBeihCrcPN0 qXKXgxntrc293VsVkb8yaBC DawXSqGKrqSIJ5Q70pf2B7C CMwMDAw QAR8pPB8zN6drWzlzkyotTM mdDsgdmVydGljYWwtYWxpZ2 24FWGynTlkRwRalNz0I4YzJ vm3FDXw lIqhYR8iyJIyERsgRj2sjCi ftTlcMM6hJJEhybyov590Kj Crg8iiGLOjuHTpOXffWBA8F 63yd4X9 HKMaLXHkGOR1fQW1fB4btXl nbjogbGVmdDsgdmVydGljYW reVTceQ221RFOfvAuvTgNzk GllbnQg YAooZMv9K4SoJstanMX+PC9 0KXNbRB21vXDopQQgv4mkvK h1PqCjJVCcMFU9gEvkDZtvn 3JkZXIt S48epVMca3X0SDTkbYiefXQ jCfZydEO9pD4sGXdmklbaq8 mqjhobNeihy7llmn68xH84C 29sIHdp ZHRoPSIzMCUiIHZhbGlnbj0 rpK2eZl4+JQLlwON8rOZ6bS 4tYMLhIrL7WPfwS648DpMtb CIvPjxj a6ssz8crgOi0LuX6CWFqxxE lpBmtKJK6v8OcSf89S94bPF dpZHRoPSIyMCUiIHZhbGlnb j7mvT3z Ii8+OXIiaZD4fSJ3bZ5iOqH cYwJ1TWgcQ635XvOenQZzFg ziU18fU9CuvBC+OTMtDgm7D CBzdHls PY8ceJXgGOlqOt3jELW2DjL aVqIxZKuiH2RsFARiohmmjs lgtDV0DVIiEQGchY51Af9ow DogMTBw gJMJdT9uhptmg5bjyzwzGsV gOEMhLGs4IOe0LKOcbTrcOx UeDNH6AmM7PWY5uOFssT8vg Glnbjog eU1aE4YkLPZmsiedCi34aZ8 bHgYnQnA8HNllPwl+Q1JBV0 ZPUkQsIEJSRUFOTkUgTUlDS EVMTEU8 V6JzWmb4CXEuxTccUM7jnMY nWVhkSc5rlCdbvJiwEL5yOU HejamrIUXjzR2vFMMsjPNnu YqhDZ1k SLXgmkygi191ZaEuAGI3HJJ uoSUxK3FisE2mHgJpGPZzZZ EjY1VsnEQyTCwkN787UGjyM iY9SRJr nqMpW3TdMXXyjGtpWhF6t3X 5Gg0gHg7vTW4yKAo2WD77EY 10pPDrt4R2gUC7W7WpWNLne mctcmln kVV1ZPEpGIQmiR75fKEhTHs dAc5zr3N2c523UFJyHNArpV 10Ov3gxOboKJKucFMQvX1gi vdpy4sw puyiFfSaJBLnIGt0XWt8PIN lzEwpRnRiRWE7BqT4AMR7kH EgwD6paDckizubsH2eMdp+M jYgWWVh vzY7Q6RoSzs5SAJmvLxjLQ2 sdZUvSTvfMq2bjArgkFyfHE 3qYWFtyoqzILWpaW8vSMYvm HRvbTog OX0qBKGkwolvf909SjZuAWF 0TCPagFOwY3UirX5dYkYhRY BeVBLnX6BahRIoQRdsU828U GxlZnQ7 OUKjxmRzX3NeXPHksTshYlW 3z4J4Vy3XPD8FJAI9G9ZpEz v6WIFkhFwjYL9avKYzXTnvO a7csHkt vRdcZN8qWVSybzvaFSHhuL5 fKHWhdAObkNhfHC2zMZMaun nwj321CvImCKG6NTCqhWZbE 6GymG9c FmGsQLFdKXJjY7TwrGSeBQn wA066VFieMtE8MKUjqnPsY0 JiRVXvwAryLwF5o9T2Bt4WY DwvdGQ+ WC59if90J0QsHlvtRpw9AYF bLMJ6kRB2dB0iHWVjYXxge7 Y9fNJ8S2XypuNcxe2zz9snE XBzZTog Q13bhQJpf7C1CREybOR4CLN uwYqdWgPyxZ76Rdq+PGNvbG jnp8IyZbhhb2zgc4xfvYm1R jMwJSIg iaJyeNavJYE7i3UxFx39H60 sIHdpZHRoPSIzMCUiIHZhbG ltpy3zmG2bEy1+UTMudIC9e NH6rT8q RnZfBaL2YGagH211OyJsaNJ uQsnbt4hua6tolIp7MyQsAQ HwmrJowOdfDUJ8k4TjSu67F 2NvbGdy p5HhHbd6tn83rKKkb6Z6wOV 8D3DxCCKnmyzrgCFkpOubJB 5sHHWfbvgqBXNmhP6fAKQiF 1k6XsDo HxI9ZMxuF1IsypK5MPDokCQ nDIBaeRJAjO0nvkvpd4bpfi sjNfYhWPWmVBv5HMb9BPUsx WduOiBs BML1MqR0MQN9yEIrsX1woEw rbjnjxV5gCik+ZRc5l9gzaW VlEA1qaPN2JA64EQ37lURko 2V6oBI6 S8TuEHTvbnlsmywmnAU1SNA pEQXtmR67Zn0hhRsgJc2rKK EhDDE9KYDydNNwS9ZasR4xR iAjMDAw JTUhZ0TmqWHhWFaoR253PNj fOmZ2DXJaqnZlB9NwUNBpaR exRfA9p8V6Cc6QCV05XB07P D76aDWx p8B1cSB4E7OkIIXyobjxsdy bqQZ8FSAlZIHotI66Ek0xbI xyTq1jVXMvLNV4IGYceJUcD 4UqqU5p FmHyPWQoIEVgG5IoxTIwEAm kE030TDdtSeQ6QSBpzuOeV7 KzZCFbdWbvWoG3f8G8Bd9ZC p27YL72 NG00oIGbp3X7rIM8S9ZjYDA jndijyybunZN5POZkZDKlyM 77Fu3dhKdnOu2uNOHbKKC4B FRpbWVz V0AcmL7sMuHrHFQlCJGmS8M unKUePRpsD273GMdzGwE6TC VlvaZwH6QaJNHjmFblFaC5n 0I4Sz1J FHcrpdb2G3DwDeopzGX+PC9 9SQQyDW35dMDthIBvc0qjdU f3XtWpWIVnQIE4zWalRVzoq 3JkZXIt Y29 (more content not included)... Normal [facility] ED Clinical Summaryon 2024 ED Clinical Summary [facility] ? Urgent Care [address] [place] [address] Clinical Summary PERSON INFORMATION Name: SHERLY ASTUDILLO Age: 24 Years Sex: FEMALE : 2000 MRN: Acct#: Visit Reason: UC - Throat Problem; THROAT PROBLEM LT SIDE Arrival: 09/24/2024 12:32:36 Discharge: 09/24/2024 13:30:00 LOS: 000 00:58 Check In: 09/24/2024 12:32:36 Checkout: 09/24/2024 13:30:00 Address: [address] [place] [id number] PCP: Anthony Gomez MD PROVIDER INFORMATION Provider [...] Follow-Up: With: Address: When: Anthony Gomez MD [address] [place] [id number] In 3 days Comments: You have been [...] next 3-5 days, also f/u with your AUTO PARTS CLERK, for reevaluation, return to the emergency department/urgent [...] 1:Oral sharon; 2:Pharyngitis Patient Understands: Comment: Normal [facility] ED Patient Summaryon 025 ED Patient Summary [facility] ? Urgent Care [address] [place] [address] PATIENT DISCHARGE INSTRUCTIONS Patient Information Name: SHERLY ASTUDILLO Age: 24 Years Date of : 2000 Reason For Visit: UC - Throat Problem; THROAT PROBLEM LT SIDE Arrival Time: 09/24/2024 12:32:36 Primary Care Physician: Anthony Gomez MD Attending Physician: Larissa Cobb Comment: Patient Education With: Address: When: Anthony Gomez MD [address] [place] [address] [phone] In 3 days Comments: You have been [...] next 3-5 days, also f/u with your AUTO PARTS CLERK, for reevaluation, return to the emergency department/urgent [...] these instructions at home: Medicines ? Take jagv-hoy-bbyanbd and prescription medicines only as told by [...] cool-mist humidi (more content not included)... Normal [facility] POCT Rapid Strepon 5 S. pyogenes Ag IA Ql (Unsp spec) Negative Invalid Interpretation Code [facility] Comment on above: Performed By: #### [id number] #### [facility] (DEFAULT) [address] [place] [address] Urgent Care Recordon 025 Urgent Care Record [facility] ? Urgent Care [address] [place] [address] PATIENT DISCHARGE INSTRUCTIONS Patient Information Name: SHERLY ASTUDILLO Age: 24 Years Date of : 2000 Reason For Visit: UC - Throat Problem; THROAT PROBLEM LT SIDE Arrival Time: 09/24/2024 12:32:36 Primary Care Physician: Anthony Gomez MD Attending Physician: Larissa Cobb Comment: Visit Diagnosis: Diagnoses This Visit Oral sharon (B37.0) Pharyngitis (J02.9) UC - Throat Problem ([id number]) If you received any narcotics, sedation, or [...] documents With: Address: When: Anthony Gomez MD [address] [place] [id number] In 3 days Comments: You have [...] next 3-5 days, also f/u with your AUTO PARTS CLERK, for reevaluation, return to the emergency department/urgent [...] and treatment you received today in the [facility] were for an urgent problem and are not intended as complete care. It is important for you to follow up with a doctor, nurse practitioner, or physician?s diploma dental assistant for ongoing care. If your symptoms [...] so we can reach you if necessary. [facility] has provided you with a complete list of medications post discharge. Please inform your pathologist assistant/provider of your visit and for further instruction on these medications. Any specific questions regarding your chronic medications and dosages should be discussed with your primary care physician(s) and/or pharmacist. New Medications [facility] [id number], [address], [place] [id number], [phone] clotrimazole (clotrimazole 10 mg oral lozenge) 1 [...] it is (more content not included)... Normal [facility] Telephone Encounteron 2024 Whiting Machine Operator Authentication Interface Message Text Called patient lmom to call office for sooner appt... we have them available. Thank you Normal [facility] DRUG SCREEN RAPID (URINE )on 09-10-2024 AMPHETAMINE SCREEN URINE Negative NEGATIVE [facility] Healthcare BARBITURATES SCREEN URINE Negative NEGATIVE [facility] BENZODIAZEPINES SCREEN URINE Negative NEGATIVE [facility] BUPRENORPHINE SCREEN URINE Negative NEGATIVE [facility] Healthcare Comment on above: DRUG CLASS TEST [...] 300 ng/mL CANNABINOID SCREEN URINE Negative NEGATIVE [facility] Healthcare COCAINE SCREEN URINE Negative NEGATIVE [facility] Healthcare METHADONE SCREEN URINE Negative NEGATIVE [facility] Healthcare METHAMPHETAMINES SCREEN URINE Negative NEGATIVE [facility] OPIATE SCREEN URINE Negative NEGATIVE [facility] OXYCODONE SCREEN URINE Negative NEGATIVE [facility] PHENCYCLIDINE SCREEN URINE Negative NEGATIVE [facility] TRICYCLIC ANTIDEPRESSANT URINE Negative NEGATIVE [facility] US OB 14+ WEEKS ANATOMY SCAN on 09-10-2024 OB 14+ WEEKS ANATOMY SCAN TITLE OF [...] GDLNon AGE GDLN ACOG TESTING Note . [facility] Comment on above: TESTS RESULT FLAG UN ITS REF RANGE LAB Clinician Provided Cytology Information Source.............[employer] Other.............. No. of containers..01 ThinPrep Vial Age Algo ACOG Crystal... -03 10 FLAG LEGEND: L-Low Normal,H-High Normal,LL-Alert Low,HH-Alert High <-Panic Low,>-Panic High,A-Abnormal,AA-Critical Abnormal Performed at: 01 =[address] [facility] [place] [address] Melissa García MD, IGP, RFX APTIMA HPV ASCU Note . [facility] Comment on above: TESTS RESULT FLAG UN ITS REF [facility] DIAGNOSIS: 02 NEGATIVE FOR INTRAEPITHELIAL LESION OR MALIGNANCY. THIS SPECIMEN WAS RESCREENED PART OF OUR CLINICAL TRIAL MANAGER PROGRAM. Specimen adequacy: 02 Satisfactory for evaluation. No endocervical component is identified. An endocervical component is not commonly seen in the patient. Performed by: 02 Emilie Frost, Pharmacy Sales Representative ([facility]) QC reviewed by: 02 Lauren Ness, Supervisory Pharmacy Sales Representative ([facility]) . 02 Note: Note 02 The [...] <-Panic Low,>-Panic High,A-Abnormal,AA-Critical Abnormal Performed at: [address] [id number] Melissa García MD, Performed at: =[facility] [id number] Senior Asic Engineer: Melissa García MD, Phone: [phone] Performed at: [address] [id number] Senior Asic Engineer: Melissa García MD, Phone: [phone] SPAT[facility]A-[facility]ONE [facility] RECURRENT VAGINITIS (HTRX)on 08-15-2024 ATOPOBIUM VAGINAE 0 [facility] ATOPOBIUM VAGINAE Not detected [facility] BVAB 2,3 (BACTERIAL VAGINOSIS ASSOCIATED BACTERIA 2, 3); MOBILUNCUS SPP 0 [facility] BVAB 2,3 (BACTERIAL VAGINOSIS ASSOCIATED BACTERIA 2, 3); MOBILUNCUS SPP Not detected [facility] SHARON ALBICANS, PARAPSILOSIS, TROPICALIS 0 [facility] SHARON ALBICANS, PARAPSILOSIS, TROPICALIS Not detected [facility] SHARON GLABRATA 0 [facility] SHARON GLABRATA Not detected [facility] SHARON KRUSEI 0 [facility] SHARON KRUSEI Not detected [facility] CHLAMYDIA TRACHOMATIS 0 [facility] CHLAMYDIA TRACHOMATIS Not detected [facility] GARDNERELLA VAGINALIS 29.341 Abnormal [facility] GARDNERELLA VAGINALIS Detected Abnormal [facility] Interpretation and review of laboratory results Abnormal [facility] MEGASPHAERA (TYPES 1, 2) 0 [facility] MEGASPHAERA (TYPES 1, 2) Not detected [facility] MYCOPLASMA GENITALIUM 0 [facility] MYCOPLASMA GENITALIUM Not detected [facility] Not detected [facility] TRICHOMONAS VAGINALIS 0 [facility] TRICHOMONAS VAGINALIS Not detected [facility] GLUCOSE TOLERANCE 3 HOURon 1 10-11-2023 GLUCOSE TOLERANCE 3 HOUR mg/dL [facility] Comment on above: GLU FAST 83 (<95) C ol: 08/10/24 0708 GLU 1HR 131 (<180) Col: 08/10/24 0812 GLU 2HR 124 (<155) Col: 08/10/24 0912 GLU 3HR 95 (<140) Col: 08/10/24 1013 [facility] Urinalysis macro (dipstick) panel (U)on 08-08-2024 Bilirubin, UA Negative Negative - 4(70) +++ mg/dL [facility] Blood, UA Negative Negative - 50 Osvaldo/mcL [facility] Clarity, UA Clear [facility] Color, UA Yellow [facility] Glucose, UA Negative Negative - 2000(110) ++++ mg/dL [facility] Interpretation and review of laboratory results Normal [facility] Ketones, UA Negative Negative - 160(16) ++++ mg/dL [facility] Leukocytes, UA Negative Negative - 500+++ Edison/mcL [facility] Nitrite, UA Negative Negative - Positive [facility] pH, UA 5.5 5 - 9 [facility] Protein, UA Negative Negative - 2000(20) ++++ mg/dL [facility] Spec Grav, UA 1.02 1 - 1.03 [facility] Urobilinogen, UA 1.0 0.2 - 12 mg/dL [facility] GLUCOSE 1 HOURon 07-31-2024 Glucose [Mass/Vol] 132 mg/dL High NINF - 13 0 mg/dL [facility] Interpretation and review of laboratory results Abnormal [facility] Coding Summaryon 07-16-2024 Coding Summary HTMLBase 64 WktbzbdtJLi8cTn+PGhlYWQ +TX3KSYDzI31ztEMplZ9zW4 NMTElOSywgQVBQTElOSyIgb dOuMU2amHCvYCRh IC8+KE2wVBUaNnlnoJVwq7T 5eDJ4K63scc1rDLokgTB0NE WhDhAoxntyx7jbfHk7IWcvN mluOyBt KTFsdC86DJE4aT47Mq50aUX gzJRwd8scgHm1JuScLKHeSO X6pWrxNHnfn9XbGPHkJ94fg AVll8T9 JNUdsPgsrHCiPvKxuHP9eB8 wCHkmyyrnc9ugdslfRzs5wp 72mTFwc8U5wDM1V7ZsnmB3K GJvbGQg SkxqcSZHfA6bkhxgk2nopsw rKkZgNYGtJLx9AIg6YKIpbL opUmPcCB55WBJ4UTErtuFxB 2FsLWFs oPfsCyM3k3M6Qm0NS2WRLwl oP5ILXSCWVWhzsEG+PC90cj 33T4NnLrzyUyz9QKGeOUT1e UN2jR4c CVOhDHttq5W2iEC5H8YwrxZ iol1ow3qkTUTlJKhuC24snA Jwf5F5FSCmnBY8SFDnbGmeD iBzaG93 Oyc+YKQemYyof0XzTzdnv5e sn7fznSa3NexzGNNydpOseF tyCOP9o0OvIo2mZRImeEE7t MQ1lV0f DeTxBjR9PNzvW437YrJtwQU sXmwxJ58rR4XszOC+PHRyPj y5KQWcqEmyQN0iB9PuYTVww mctbGVm pPweLN1fNZHkoohiHNUygP3 sAPTnZ6l4YuBzSoV3EYrrY1 AuHQQvzirrMi19fY1nGbFrH gI2HXzk E3SnsuR2EFRtsJImPLqiLEM 7T55sn5T8SLBfAWYgCZK7cB D8cS7qzUqhqzgjaHAvcDogv mVydGlj UVclOSjrP547HBCccMznKsC vZGluZyBEYXRlOiAgMTEvMT EvMjAyNDwvdGQ+HUKmLXS8c WxlPSAn nDEtHTtfXl4yjQrjpEuxXS3 zXHYtialwDOLygB8fCSDksL FasLzdHF8yICTjqwxoj582T iAxMHB0 KSPdwLSgJ8UbvF5nUkDcLGJ wBMNkX0DubNSfPHcfD123OL gfDfD2NECjjoBpB3WkEKSig WduOiB0 b0T0Fi0Pa0EaerveK8QyeUS bKeFhNnijYTu0M2HsLynylK I+TV50NKPtVH81RVr5ZJQ3e WxlPSdi IUOsU6SheL9mIfNwVTKvRVS kOyc+PHRhYmxlIHdpZHRoPS fyAAHtFiOauMrcAA1lIs8wQ GVyLWNv fMsfsZDiXyHbg7ojLVBrRBn kCV6baPkaF3HzlYS9VRUuc9 m5Fc98D73tT9DqdTE+PGNvb ON8vVP5 cL7kOqIbHnC6EQceN523YhW faKEnIvohj6skp5ibpAr1Uz E1MYXzviMnaMrgKBT0v1PpB l99O07u IHdpZHRoPSIxNSUiIHZhbGl owu8hfY8lHn6+CQFmxFL8kY N6iP0uVxBfKbQ7LFnoZ990W nRvcCIv Fgvbx4jtz7dlrZn9OtRpOZD brtKsiMfcSMI7v4FoBj41Z2 QcpKehs3VnIkf7lj11dCJsq 4H0mKV0 M3XxMDRapkkzdPAzmGogPR9 uVHWjninjERNquJ3vZUSjP5 t5UsHlDxJ6KIhhU4HqowC4W GJvbGQg PUDjiMVMzI5kycvaa6jolty sVyMhCWHdBIv2VKw4SUKttS vhGfXxOPX6UpP5RZF8bBTvn G5jjKum fulgbB7tFbu+LUS8jTMvuED YSW5bRjyiuCC+HVPzITO7oX otWPejYWVnbJ9oWVHdY8c7D iAwLjA1 IZeaT2UfehM4ZIEyaHJdDFA rlYSFgM1alqykm7nkmsrwRo WwSLFkPUl1OOu6MBKzwLakH iBsZWZ0 DgH7MOV4wRSfbL2taNojkcp xsJ6vKhg+NxcuwVpkLRA7PS y6C8IrDao9KPVdcRevLL8xc GFkZGlu Vc7ieJlzmQexEA2qSRPecys xm054SiMqq8rzVZBfgEXqCY ifDIE8U98sv7Y9IWAoEVZaA BJ7kWE5 qF6kpLtrwkdxkTHolCvpehM ngXskGLbxRDigU262PULpjC dqHfNsKIx9M2JrAhd0NHVtx DwlON5d yEDuPZcoGv6huTgmvSzfSD2 kTHHwivgel597AeXiz3sxPL ThhLOvZDzdPAF9S10yb0G2G CMwMDAw WDW5tOM3pO0tsUecwiyrxPK mdDsgdmVydGljYWwtYWxpZ2 28FDGhdEcaHpQvbRd1Q5NoH gd0LBCh zTziZV8jcOAiERveDc6zfRz lmXfuNB8oUCIziliyx211Bs Vkd6cmLBQspTAnGAyyPDF5W 27kk3Z5 BIKtLQNqVRV5sVI0wB7kzMt nbjogbGVmdDsgdmVydGljYW vfFSphH586FBBreDanSmEhq GllbnQg MQyjZEm3O6WmYsdvgHU+PC9 5REAeIW37kFFkxSIlh4pppH r2BrJcVBQgQOU0dBkmZDnhk 3JkZXIt U19icMRjr4Y7FLTirCsgrJL pWwRrhWO4cG3sZFjsyjznk0 trfpuiHrznn5ramz76jB33M 29sIHdp ZHRoPSIzMCUiIHZhbGlnbj0 ygG9bGc5+EKYmnXO5lLF6xE 0lHLIfWnX8YIpzG326HeQfg CIvPjxj b8rty9vjsBx3IrF4BUNlecM kzHwpRTY0f4VuFv35T81nEZ dpZHRoPSIyMCUiIHZhbGlnb g1iiM6h Ii8+RALqdJJ7vBF3oH0rJsL iNeM0KAxeJ467GaYdtEGvZc uqD31dM2CuoXK+GLUuMxr8B CBzdHls KH1prRGdNRgpIu7vPOO7SpN sTvTgBKkeW4MnHXJhhmytjx oldLD0TXLzGEXnfS75Ml1xf DogMTBw pQKRfV8hhziig4cobjzfWvR xIWYqELv3GSi5SLWmvXyxMy EoPQX0JeI9FOI7iBXhcS1rm Glnbjog pQ3uE2HwOFSyefesJs71eC5 bXcFzJrD4AScpZkg+Q1JBV0 ZPUkQsIEJSRUFOTkUgTUlDS EVMTEU8 T4MjNnj9UIOehLhmYK2vbLP qVPuqXt3lnZflfWutET1uST MkutzjULEjyX8aAEDgjYNqn JyiAB0n XFEyucgdl584NsEzYQB2PQY qpDFgO6AiiU6aQfBcKLHxRM EmO2MnrOPlTFvxY529GQkmG fA8ODJn icQpV8ZlTWIisIhnKuK7p4C 6Yy2yPg1pUN5qCCu7GO04YO 49mPMrf2B2xYM6U7ArCHZxq mctcmln oJE2NHZtXBIqhV15wYZbKCp nSp6gf1A5i621QFFvQVGkzY 84Ef7juNeoXTBtoJVQwL9gf qare0xb muclZnFuKPUtNMr2LIp0DPT igUadCrEuEAY9ErM2YQP7yF WebA0xkTdbloktkY3cIwq+M jYgWWVh dqJ2P7VcQtx5HQCvpGlgJQ8 uvUMwLLhmMl5wdNoolKvtCM 2wLJEburqmYEKzvT3nUHHgy HRvbTog OE4dOAGiorekg337ZcFcGBC 0HGHudCEsF9CcvM8wEqMwQL YyYRPtZ2EztIMeQSsfX727Y GxlZnQ7 FQYyxpBhE7KnYGOchCmvZzH 3m3G9Wf3EYF4HEYR5R7QsQc f3AZIvvFwoIQ5trTDzFCasA k9fwXdn sOokNK6aOOCidgzuENRviZ3 nRLHrrAVxaMnmSN8kBYVpqt dpf548TkIdVVD0QDJlaQNoM 5NnrD4n AdZbOOHaHUJaD7QdlBVlUTz aJ423AKpeOzZ7FPYmomNmB1 HkFHLplUtgMxO8t5H7Oj4AG DwvdGQ+ QP87lo87T7KsNbslQna8VUZ kALQ8cJL1uM1jMHMeCNlou7 C7sQT2N9PogqOkev2xt9tiO XBzZTog H12qbDQtr9B6DQYdfQD0YGE naUupQuFjyA85Eyb+PGNvbG qmj4VxVdoie5bls6luaIh0S jMwJSIg gdBhjRljZLW1v4VcCq96U66 sIHdpZHRoPSIzMCUiIHZhbG ysye4srA0yNi7+POZlrHQ6a NC6xS7g VjHwWxZ9UDjkW887XeMtxON kGponx6ugt0oimIr5RbGnFF GdupKojGnmQOT2a7FxUq02X 2NvbGdy b3NeGaq8qb75cNMnk4O6vSV 2E5YhVSQjybgdpDRojRvqHW 1uGCOcjjfyVJRkeN7dUKWbF 2i7DcCv SfN6ENrzH6PwdsU3XWBsiWY tEBQjtNNAuA3ydxqvl3irtn kbLjFtSGZgAKv3FNo6UEWxp WduOiBs ZDX0YbL6HPU3yIIteH4auPh fxmbftC7eEnp+OXc3a5uyiI NgHU9jtAM1RS39WI49cGXts 2I3nTN2 E4NlYUZxhhjkhqcwvNS6CUP eNLZfaT52Ub4xlIljBf5dLP ImBXN3SFVtuNDuO8GrhB1kL iAjMDAw KKXhB8MihJRuRPbwX774XHz sCgX9DCCighBlL2MeQGOksR utVyB2u0M5Od5JOG03TB72A H18kZIx c2Y1iFC0V8LmGOOfogeohkz bxPN1CPXuHPJknY88Yk7keW keCu2hZITnBRO2WLBxpZVeS 8YzaL7k AvCrDAAzDDViP5TznUEsRCe xP630YMqpFaM9XURqpkSkR0 DgJNJkjKwoEhE8g3J6Df1ZU v32GC21 OJ24iHVgz1S3lXJ7O2SvPLO nbahcgosgwPZ7OEHyXWHhxX 72Yl5piFhhKw4pFPYhTVZ8E FRpbWVz O6CniK9sOnRtLAKnONGiS0I ukEMgHJldP676RIzaReE6MY EinfUmF5VdCEDqlHlzYxT5r 9N5Rk3F TAvbdya7L8IqRdggtTQ+PC9 4VDItNM04pYHxfREne8blhP r0ThCvRXXpIYA4lLdvHZhbu 3JkZXIt Y29 (more content not included)... Normal [facility] Urinalysis macro (dipstick) panel (U)on 07-10-2024 Bilirubin, UA Negative Negative - 4(70) +++ mg/dL [facility] Blood, UA Negative Negative - 50 Osvaldo/mcL [facility] Clarity, UA Clear [facility] Color, UA Yellow [facility] Glucose, UA Negative Negative - 1999(110) ++++ mg/dL [facility] Interpretation and review of laboratory results Abnormal [facility] Ketones, UA Negative Negative - 160(16) ++++ mg/dL [facility] Leukocytes, UA Positive Negative - 500+++ Edison/mcL [facility] Comment on above: small Nitrite, UA Negative Negative - Positive [facility] pH, UA 7 5 - 9 [facility] Protein, UA Negative Negative - 1999(20) ++++ mg/dL [facility] Spec Grav, UA 1.025 1 - 1.03 [facility] Urobilinogen, UA 1.0 0.2 - 12 mg/dL [facility] ED Clinical Summaryon 2023 ED Clinical Summary [facility] ? Urgent Care [address] [place], [place] [id number] Clinical Summary PERSON INFORMATION Name: SHERLY ASTUDILLO Age: 24 Years Sex: FEMALE : 2000 MRN: Acct#: Visit Reason: Vaginal discharge; VAGINAL ITCHING/DISCHARGE Arrival: 07/05/2024 10:15:34 Discharge: 07/05/2024 10:59:00 LOS: 000 00:44 Check In: 07/05/2024 10:15:34 Checkout: 07/05/2024 10:59:00 Address: [address] [place], [place] [id number] PCP: Anthony Gomez MD PROVIDER INFORMATION Provider [...] Location: Home PATIENT EDUCATION INFORMATION Instructions: Vaginitis, Wpdt-pt-Yqno Follow-Up: With: Address: When: Anthony Gomez [address] [place], [place] [id number] Business (1) Within 5 to 7 days With: Address: When: [place] [address] [place] [id number] Business (1) Within 1 to 2 days DIAGNOSIS: Vaginitis Patient Understands: Yes - Patient/family/caregive r verbalizes understanding of instructions given Comment: Normal [facility] ED Patient Summaryon 024 ED Patient Summary [facility] ? Urgent Care [address] [place] [address] PATIENT DISCHARGE INSTRUCTIONS Patient Information Name: SHERLY ASTUDILLO Age: 24 Years Date of : 2000 Reason For Visit: Vaginal discharge; VAGINAL ITCHING/DISCHARGE Arrival Time: 07/05/2024 10:15:34 Primary Care Physician: Anthony Gomez MD Attending Physician: Spenser Fang Comment: Patient Education With: Address: When: Anthony Gomez [address] [place] [address] Business (1) Within 5 to 7 days With: Address: When: [place] [id number] Business (1) Within 1 to 2 days [...] and use condoms. General instructions ? Take vudp-xsc-hiwhxiz and prescription medicines only as told by [...] provider. Document Revised: 02/19/2021 Document Reviewed: 02/19/2021 [employer]unchbutton Patient Education ? 2023 [employer]. Medication Information: The exam and treatment you received today in the [facility] Emergency Department were for an urgent problem and are not intended as complete care. It is important for you to follow up with a doctor, nurse practitioner, or physician?s diploma dental assistant for ongoing care. If your symptoms become worse or you do not improve as expected and you are unable to reach your usual health care provider, you should return to the Emergency Department, we are available 24 hours a day. For those (more content not included)... Normal [facility] Urgent Care Note- Provideron 07-05-2024 Urgent [...] History Medical history: Resolved Ankle fracture, left (85108607): Resolved. 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 Surgical history: Cholecystectomy (50113670).. Family history: Anxiety Father Sister Diabetes mellitus [...] couple of months. - 02/02/2023 11:53 - JanuaryAilin RN 05/28/2024 Alcohol Use: Current Comment: Gillian - 11/19/2023 09:33 Marisela Puri RN Employment/School [...] doctor a (more content not included)... Normal [facility] Recordon 024 Urgent Care Record [facility] ? Urgent Care [address] [place] [id number] PATIENT DISCHARGE INSTRUCTIONS Patient Information Name: SHERLY ASTUDILLO Age: 24 Years Date of : 2000 [facility]: [id number] Reason For Visit: Vaginal discharge; VAGINAL ITCHING/DISCHARGE Arrival Time: 07/05/2024 10:15:34 Primary Care Physician: Anthony Gomez MD Attending Physician: Spenser Fang Comment: Visit Diagnosis: Diagnoses This Visit Vaginal discharge (227374727) Vaginitis (N76.0) If you received any narcotics, [...] legal documents With: Address: When: Anthony Gomez [address] [place] [id number] Business (1) Within 5 to 7 days With: Address: When: COLE ALON[place] [address] [place] [address] Business (1) Within 1 to 2 days Medication Information: The exam and treatment you received today in the [facility] Urgent Care were for an urgent problem and are not intended as complete care. It is important for you to follow up with a doctor, nurse practitioner, or physician?s diploma dental assistant for ongoing care. If your symptoms [...] so we can reach you if necessary. [facility] has provided you with a complete list of medications post discharge. Please inform your pathologist assistant/provider of your visit and for further instruction on these medications. Any specific questions regarding your chronic medications and dosages should be discussed with your primary care physician(s) and/or pharmacist. New Medications [facility] [id number], [address], [place] [id number], [phone] terconazole topical (terconazole 0.4% vaginal cream) 1 zoran Vaginal once a day (at bedtime) for 7 Days. Refills: 0. Additional medications on your home medication list not specifically addressed. Please contact the ordering physician if you have questions about these medications. multivitamin, (Multivitamin) 1 tab Oral (given by mouth) every day. nitrofurantoin (nitrofurantoin macrocrystals-monohydra te 100 mg oral capsule) 1 cap(s) Oral [...] Eating food (more content not included)... Normal [facility] ALL CBC WITH AUTO DIFFon BASOPHILS ABSOLUTE AUTO 0 [facility] Basophils/100 WBC (Bld) 0.3 % 0.2 - 2.0 % [facility] Eosinophils/100 WBC (Bld) 1.2 % 0.9 - 7.0 % [facility] Erythrocyte distribution width (RBC) [Ratio] 12.9 % 11.0 - 15.0 % [facility] Hematocrit (Bld) [Volume fraction] 40.3 % 36.0 - 48.0 % [facility] Hemoglobin (Bld) [Mass/Vol] 13.7 g/dL 12.0 - 16.0 g/dL [facility] IMMATURE GRANULOCYTES ABS AUTO 0.06 High [facility] Immature granulocytes/100 WBC (Bld) 0.5 % 0.0 - 0.5 % [facility] Interpretation and review of laboratory results Abnormal [facility] LYMPHOCYTES ABSOLUTE AUTO 2.5 [facility] Lymphocytes/100 WBC (Bld) 21.2 % 20.5 - 60.0 % [facility] MCH (RBC) [Entitic mass] 29 pg 26.7 - 34.0 pg [facility] MCHC (RBC) [Mass/Vol] 34 g/dL 29.9 - 35.2 g/dL [facility] MCV (RBC) [Entitic vol] 85.2 fL 81.0 - 99.0 fL [facility] MONOCYTES ABSOLUTE AUTO 0.4 [facility] Monocytes/100 WBC (Bld) 3.3 % 1.7 - 12.0 % [facility] NEUTROPHILS ABSOLUTE AUTO 8.7 High [facility] Neutrophils/100 WBC (Bld) 73.5 % 43.0 - 75.0 % [facility] Platelet mean volume (Bld) [Entitic vol] 9.5 fL 9.5 - 13.5 fL [facility] TB EO # 0.1 [facility] TB PLT 378 [facility] RBC 4.73 [facility] WBC 11.8 High [facility] Outside Recordson 06-11-2024 Outside Records [id number] [facility] [id number]#[id number] [facility] Coding Summaryon 06-08-2024 Coding Summary HTMLBase 64 SpupcpkjQFk5lPf+PGhlYWQ +BL9OFOFoO49brQZgsI7iI1 NMTElOSywgQVBQTElOSyIgb lXvIP0haTMzZBHg IC8+BH4oUOClWcqjiYOww6O 1yAT6V71wyn8dWLvvyAR5LG RfJhRyikqyy8rteDt2STxqL mluOyBt RILcrW77XAO7oQ36Ph32jCS emQPxf0eosJl4VnTgHVAeSW A1cIfiRPpqb9OeYVFiU11lf NFzy6K0 HLRtwKkpiKQfEdGidOZ4aJ3 yKJyybjqkq7egyvswRqe3xp 99aCTyp7J9uUN5I4OueeP6H GJvbGQg KbeybVCEpK4ccpadm0popgi tGvDuUPQxKAc6IOm2YHSudC doGfWdTM19XSL7HDJvcuDcP 2FsLWFs pNuwNzC1w1N4Oi1AZ3YWSwg jQ7RGVTSUMRvspYD+PC90cj 24H8NfBlzpFfy5DSIyHGH7i KV0wB2c ECNlYFaqc7K5bKP3J8WnugP umt5zm2kqJYGaLDmpI48opA Xqf1H0JNMznQC6WCFkgWwzV iBzaG93 Oyc+DNOqeVzjw3OcDaszs1f vo4qbeCm6SzqyFSOwvxNodS axHZU3x8UeMd7jFRMluYA9j YZ5uT3o XiCxVdE6QIwpN012UeVjsYV aXefmI07uA0TtjPJ+PHRyPj l4UEAubGkvWF4xH9DgBAAqy mctbGVm lGghWO9gKOAhwwgaAKGbwH6 zLSKsA5i8YoDqPzY5VJjdE9 GmNZRwrcumKr82pB5oQbCjT bY0EAgu W8GcleB0AHZtnIDwWOfzJLM 8N57ft0M9SWGqZDJzLFT7zI G7lC4zfOisrbjltPZycVahs mVydGlj HVdpYIkjV933BMBboKolJoC vZGluZyBEYXRlOiAgMTAvMD QvMjAyNDwvdGQ+CXOoUIV3x WxlPSAn aLAvYKjhQx0xbJxvfBaaNV8 uZLAnvyebKFBsdP8wMLAmuF JjeZgxMG6bAPLzfuhnl174I iAxMHB0 VVBfeRIeR3UpdY2hDpYjYEM hGDXnN8AvtRFkABdaP091WQ apIxF5IQQrvkStS3PnEOLlm WduOiB0 j8U5Ie3Sq2FnosysY1UydRO rYyKaXvaqRAf9U1QqMsuijD I+OJ90EKKsLN93KPp6LQJ2x WxlPSdi AOUzY5NspY2gIgAvYJGkJYX kOyc+PHRhYmxlIHdpZHRoPS ltVQElRzAwkRqbQO8zEw5gM GVyLWNv mPmpcTNfQaXlk7spOJOiUSs hIY2mpPnnL0NtmGQ1SFDji2 l6Sh18F63rG5RkqTT+PGNvb JX2gUR3 nA2hOfEmKbN0NZefN916ChH beBAiJyipo5pnt0gxvAp6Iz Z7LFEvqcOjjIacEMJ4r3TjG c18V99s IHdpZHRoPSIxNSUiIHZhbGl xbs5ndO3dMh5+ULOoyGL4iF S0rX0bIjSbDcV8CMurP911A nRvcCIv Upivc9xcg1mjhEh7StOmNTP agsLerGvsRSV2b7UrWg90P0 CzsHppr6PiMhl3um76mWCsj 0X6eYD9 M8SqKEAuifbtkRFebHekMD5 aQTLbsgmjXPCuxW3fPJSaZ5 z1HaVzMlD1RImpZ8LnndK5K GJvbGQg JSFzfOEFkV5sfbbnp1kmxqe bWwCjDHIcMBj9YDl4GZAkeS ikAiQcUPV3WfO2ZKG9nPXcs L4huHkx uzlquX1nGzc+YJV6qLQbfAD AAR7fSjchqDT+HKEpAJM4lB xiEHydJTEzfO2fXLRgD4q8D iAwLjA1 MYzcI9PvswC7LJWgoGCwMAC bbQFSdU1gsjsyj6qlmciiGf GeUXPnZUm5TIh0CISpzIaoT iBsZWZ0 GiO3VGQ9cDOpbP1fdNsduqh khL3fQwv+JoqxnJlvHZQ2VW h5Q8YjFgw3YHXxhSglAB4oy GFkZGlu Gh9reFciySwsAR6lROPgdbf fq915FaPwq3sfUFWtvTJfES zpTZR8C55kw4A8HJBzCFFsE MS1zCW1 oV2spVntjyddaVVwlZvbwgM meLkbJPrvWDejX458OTCqzB bnMuNrJIi5G5RcIzp9RYTrl NyzMN2o oDUnFAxsZu7lrEjtuXqjQK3 dZYKvsneyn897NwTln5eyNR IpgANfFJfuQLK0B91ea0D4H CMwMDAw VJM4nKU4uH1zbOyvtbrjsPA mdDsgdmVydGljYWwtYWxpZ2 47UDBweDtpDdWsfHx5K1NzZ on0ARGv lPzuGH7oxSFsOQbqRq7wlJs nnSjqVG4oCOEprxome352Do Wfm8xkIEWxnOIyQAweCYN1H 74vf6V5 IECdINYoQEZ3mXG6nV7nxOk nbjogbGVmdDsgdmVydGljYW zaRZwoM614ZTJklYsuYiHrm GllbnQg WCpmCIu4U3PbAxwtpBE+PC9 2POGqHM05wRHglYIeg0wfzS n5FnOcAPRxZBT1yVqwXQtrv 3JkZXIt C07fgKApu0D0FIOhxUtzpKN hYjZbbEH3lN0xBUmfpqejs5 upcbfsVmvgs2ntmd96aZ84A 29sIHdp ZHRoPSIzMCUiIHZhbGlnbj0 zeO3fYx5+DRMmlDC7mHG6mH 5hPODpHkJ7AMyoR891NtMuj CIvPjxj y3dlz6scrXq9BzK6JFUpbaW emVdaGNP9u4RsBx48G84kPY dpZHRoPSIyMCUiIHZhbGlnb f1vsI4w Ii8+MLWdfQE4bYI3tS6pVuK mFhD9EUzkK369UqXomXAeLh xzK41xP7EiiZY+VTOwZji2N CBzdHls XY1fnXDsLUtuNb8eZVI4MdX pAeYlGCbgD8BpKLXwwadjbs xoaSC5FYWyHMOvlN59Bg6hs DogMTBw zHCGzF0brcdvq7scwnpsFtD bTFPeYXb3KTr7TVWdxBttZb CuNRO4JbN5PQM0fUDsoA1bn Glnbjog bS1jX4PwVOLqozhvFq44kD7 wLcFzKiK1OVkgTlv+Q1JBV0 ZPUkQsIEJSRUFOTkUgTUlDS EVMTEU8 W4WsCpb0IKFxtJceHE5uvRX qTVciWi5zgIsdsTpbOS2dNI LnuxhmGWZwxJ3cLUTmqPDyf EtvKP8v CWGpqtdds154UvUwXHH6PKM hgYKuQ7ZxtD7jNuJoKTLmLG XsG0VryMSmYBgrY209VXygY lK4RXLl yhCmE5PrEYEvyZneKpE4q6W 3Vn7mZx8qPP0bUMe3FU10FR 30eASee3W7cMN0Y8KpMOAtr mctcmln iND0UFIdRHYkiS09fFEaXZc wQx2pg9F5k365NJXbKFAxiS 31Js8yaKwsFLTvyCLXjL1bc opms5qe weeyXeIlAPJdGKv1TMb5RKK fxSztWdKvCDI7MiL7KKD4kA JfdL7woFmnrpkquT5zRvf+M jYgWWVh isT7C2CqBrp4LBIrkHbyHC9 skNTmGYuqHl5oeKpzbVxmEU 6aDRKbkpwaSDKnpG7cCTJnq HRvbTog LH4nLOBqdxjqv621WqAfTOW 7HLXdhGNsK9NwsI7bDxBxLA ChNVSlI5YrbTWbPMfeD598Q GxlZnQ7 MKGkkvKoC6TqNTBxiHfiShK 7w5Q6Gj0THI6SPXF7O4PmNc z6LUFmwYqtJO5kiEVfQHxvH o7mfGhr sNdxXI6fURIgbauaJYDrgH6 mZRXmfRHelLvcFZ0pQMThpi xup657PwCoQEB5SDGmyFCbC 0CbtB9h PjNuLQJfPNTdR8ZsoSGxYUl xI844IDqgWcC2FEVzioTtT7 QbVQKtbUllDmR5n1B0Dm8Na EDoW4Pi W3t3G4LoBjlgoSM+HM31OFS lWI38jMIhlRMuu8xtyCw9Tb UdVQWaHJR8hFfgUWmaj0SiK HGrR42w lUJef1H4QWXmgIddhAZnDjZ oiZZ7hB8gMOhvhwbwz4oioq faTnnrq8kglk03iR17W08xS HdpZHRo AZAkOPXaHOMneZntqi2fvK4 wIi8+VKRhlYN7nUD3cR5bHi DwIlJ4CFqiN720CuLcvIOuY mnsq5ht i5tfdJc8TeHkEGFpsjFtzVg lGAS1q6VbQl34S96mIXczIU EdXYItCMXpEBCmjFbzov1gz G9wIi8+ VU4br6duyo10eP53mNL+PHR wATZ6jIeiGSegKZDqvQ4lJT xuMpI9YARgBzRhnE48lVMrD CkbPd1a tBasaRsdEG2sLLLwhhulx03 6ChLvf5kzLPZfhCMbWNaaHL W7D51mm6O5RWUxFHCxRXQ2c SU2vA2m bGlnbjogbGVmdDsgdmVydGl tLRkvJSgaW435ULCvbRtcMc UldSZlU5oxqiNALG0bDitam GQ+PHRk SVL9zKtbIKpjSIEeqE9hFIJ uP3e9VzNmOzU6FKzuW2Xjuh D8HVIhzPQrPVGpaKUCmN3sv lxzq0gl dlcoXaVzZJXiUDi1HYa6RZT btSshZiXxAKC7GfW9TBY1fT WgnP5ifJckdzdajT8gUwy+R klOOjwv dGQ+YKSzAFD2lTilLCivUXU gkR9rTMNpD2n7XqUeFkT2RY iwK4EqncD3VASmkVGvZWPmz PSPvM5x zdwej2yvnkasLhIxGVLbOJe 9AKi5MARnrVzsWsDePRB4Vl H7DJF9lCCsmQ9ioUrmaklqf G9wOyc+ TVJOOjwvdGQ+MYSsYTM5qEg lWQtaGCOagE7vCQVlJ7u6En FiRdW1KBulA8TdcyP7QRHer GQgMTBw iFUAlN7lyguvi5abecsdYcK eKLCvFDr3WKj1PVFbpLbuCo ThILD8KkE3CWM7iQXbbR4kb Glnbjog uN0lUon+FWR8FDU3IV65JC5 5A7FkXsnehDTsgTN+PHRhYm xlIHdpZHRoPScxMDAlJyBzd BmeXT8a Ym9 (more content not included)... Normal [facility] HCG ( test) Ql (U)o n 06-07-2024 Interpretation and review of laboratory results Abnormal [facility] Preg Test, Ur Positive [facility] Urinalysis macro (dipstick) panel (U)on 06-07-2024 Bilirubin, UA Negative Negative - 4(70) +++ mg/dL [facility] Blood, UA Negative Negative - 50 Osvaldo/mcL [facility] Clarity, UA Clear [facility] Color, UA Yellow [facility] Glucose, UA Negative Negative - 1999(110) ++++ mg/dL [facility] Interpretation and review of laboratory results Abnormal [facility] Ketones, UA Negative Negative - 160(16) ++++ mg/dL [facility] Leukocytes, UA Trace Negative - 500+++ Edison/mcL [facility] Nitrite, UA Negative Negative - Positive [facility] pH, UA 7.5 5 - 9 [facility] Protein, UA Negative Negative - 1999(20) ++++ mg/dL [facility] Spec Grav, UA 1.020 1 - 1.03 [facility] Urobilinogen, UA 0.2 0.2 - 12 mg/dL [facility] Coding Summaryon 06-05-2024 Coding Summary HTMLBase 64 UbeqfbyyDCq9fFl+PGhlYWQ +WD4REMXtP60qpWBhrJ6lR3 NMTElOSywgQVBQTElOSyIgb nTaTB1lhDGeATFe IC8+YK2oRRUyJaztqJCre3R 1wBO9F49nct5wHBkadED0FA MsHqOidywyn9fnkNx7VNsgA mluOyBt JNNdkA66MQZ8xH90Nt33vEP gyOFrm2qzjBe8FwCmXNZuEA P8tJyyYLtrm0MuESOaS69zx FBpf4P9 HKVtjZazbKZkHzJeuBD9lU5 uWTkcbjwga0jlxcziOpg0lj 34qZGik8B4aQG4O4QeikM2J GJvbGQg UayvrSVLjW6vnxvyi0knrqs dFmEpUALcRPy2IHa5JKPfoZ pbZwXdCV74QLP1IBGkrfMeS 2FsLWFs xHyiOeT9l6F9Tw9KN4WDHzw sG5DLDIKXFRimoXZ+PC90cj 45W7AjLeahYfk7VJYlGWE6g AM2zP5m EODeTTrec1W2nHD3E7EltoV pdb6ft7wjJEWjXBbrE07yxW Fdx7R6KBBboXO1QVSikDpgH iBzaG93 Oyc+NJUkmUtyv2AeDqhre3a nx6emiNx8EsznWWUmtgOrwQ syHAK1v9ExMs5rBSGmxLK4p RA1hT9y GcEePpW1SKdbJ528AhJncVN pOboaA13vR9GudRH+PHRyPj n6KLVrwEtaUS6hT3MzXPCkx mctbGVm zTzwXU2bELZmueirGMCxjM5 uMCQdE3v8IgVeLxE6BVsjK0 XnPFXnzozzTc46nL7eUwWpD xQ2ZNxz N6RsgbF8HERfiCBtVFdjQZS 7M95vd1N5NCCkJDWeSYI3oJ W0nM8khNojnnzliSTmjJtpv mVydGlj LKyzCAekY667XVCloCtoTrL vZGluZyBEYXRlOiAgMTAvMD EvMjAyNDwvdGQ+FQEnCIZ5d WxlPSAn cRTwLRpvYr5xmMsekSgwFP1 oPJZnpayjSXBvvU9eDJGgiZ WqpAosLY1hWJNxidefo384N iAxMHB0 JYAzmKZoK8NhzK5kJvJiSEP hBZRgA0KbtCYxCYhgZ498PS sdOqH2QWDpagOaM4UyICZfl WduOiB0 w9Y2Sp6Vo0DzgbrzD0QwgFB kPiCaUmyfGEo5E1BlJwalaK I+BF49LSRlCO21EXb1MOF7e WxlPSdi DWWlP3SxzQ9sQqEkEJRwCWJ kOyc+PHRhYmxlIHdpZHRoPS dsYVLmHgJqsIsjRR1nCb3pK GVyLWNv wDjpjVZaKtBhh6aaLAKmCJn mDA4wmAwnC6UftFK6DQIgf5 s6Cw14S84rT5JfmAI+PGNvb KZ9yHM0 bP4kKeZsDnO3MZphX812DiW eiSPlSqsxm7fyr2facLw8Tp I5RJRdpbTkaUhqNET1k6OoN p62P70y IHdpZHRoPSIxNSUiIHZhbGl cgx3szQ5lGz6+YFFeeKJ8yT N5vS3eSuWjMxS8ILmxX834E nRvcCIv Hauit4lqq7jdaEd1TvCsUIU afaErjZffCHG6z3LcJm80X0 OmmQmjr5XwTgu3qk09kXEeg 3P0zYZ5 O6LoHTLzdglirFPobMfsHV1 bFPYhrsoxGVWskB2fVNTrZ1 u5NkTrIeA6JMrsU5EzkrK2J GJvbGQg ZAVgvFHMcD5zmckeu7rlpjj nSaBcZCQnZIh9TJc8LBOzlF zlXuXiJKF3BxC3NZF7zJTyw E0ogRtp rujwcA5bGaf+RBF6mOZdoBP ZNZ2oBkizqQU+HTHxMYR7iM vwIZhhBEFgeJ7uLQZfV1q0C iAwLjA1 FOplT4IhheQ2RFOwfSYuTRE wcHFOqI7fhqzze3gtmjdsZt QiNMQrPIc7JVu2YNVgtWncA iBsZWZ0 IkE7PIZ0iPEsuG7clPtgucd scN6fAoa+RjijwGqwBUV7BM j0W1DrYaz3PLErjEceSA4oi GFkZGlu Un0xoCygbNysIV9jQCAqjvp ek206FyVnk7kmZMWrnTXfQQ uiBQZ9V40cy4D0CMLsJQVmT YX0hYN3 iN7yjItgsilkhRAmyGpekgO ntOukSWzvUGluL627CEIyzF bbThBzROv5Y3CrJbp6UAOto SrpOK7k gMUyNTzyWh7vyXooxRjbQO6 bVVBoiddvx562DmXhy5wdPG TbbXHmVFpeNHC3F79ub8M8F CMwMDAw LYO3eEE3dR6qsDjhpaxihIN mdDsgdmVydGljYWwtYWxpZ2 71ESSmxDaiOgKooAq1K6ExS et4IHXk aImcBV2ksIBqXVrwAi5rpAg mcPlzFQ9rDDDopvevv676Eb Zbp0ggHXImmBNrUCoyMOH0M 06du7F0 WSQeEKWjDFL3oZU8eW5anEi nbjogbGVmdDsgdmVydGljYW naAXmcY282RESunHlkOtOve GllbnQg FBseFYn2Y2TeVakyvXH+PC9 5YIRzQN95bOVjtBMuo3owyS f0LbKvHMWuFKY1wZrgEZdyg 3JkZXIt C42cqKEhh9U6GJXouTmqiCU qAtJfoUL8qG9uFNjyahvul8 hieveiEjauh1wuyn40rE59Y 29sIHdp ZHRoPSIzMCUiIHZhbGlnbj0 ooV1fEd6+KLAipZG6mJH2fE 8zZINkGhI0VSwaZ669BrTex CIvPjxj w9sub3ouoGb2CkE7WFAolfO ejRrrYBZ7x9RsKx69Y84cFO dpZHRoPSIyMCUiIHZhbGlnb o8umM6g Ii8+SSFagIU4cHF5rR3jKmP aIeH7EChcB263CwZuuWHyIf jvP57vE0IcdGF+SDDqMrl4H CBzdHls JI3hfFHbGHdkMn9jIOG1EwX bZjJgTNssW2FhJXKnmnmuyg pzqBY2HQEzHYHblE00Ym4oe DogMTBw yWETfB6pszyzd3yuijzvCxS aRZUgCUt1OKo5EAMzkJicXj MdXIZ0QiN0QLU8rLXstZ0tp Glnbjog aJ8sW9LaRJMhrjxmUg12fR9 pGoFqSkH7OShqQdz+Q1JBV0 ZPUkQsIEJSRUFOTkUgTUlDS EVMTEU8 V4VdZkx3HEGjwCycIE4bjKH nZWqdJu3sbNbxbHwkFO9uBO HicrmyCKGsbC7lOTJbsNBug YjjDE8a GAGockkqo354DwVpVDL6FYC dnZRgG9FapT2cNbIzLPCfWG AtL6WazIAgPLzhK725AQtqW sZ7YUNh qkSpR7FpCLAncDwtHjF9g9Q 2Tp5dUj3lLA5fHHk9GV06TF 74qTHhj4W1jWN6Y3OtQQDaa mctcmln hDZ6EFGmJIKgcM04kVXkJZx hEs2wp0O0l268KLYaSFStrZ 18To1phZnzXNYfcGVXeW3db aosj9nz mebnRiQxMCDaXVy1ISd5RRS baRjpFsJhEYI5QqN3CXJ7oC SkmC8xyGmfrpdvfC7nBqq+M jYgWWVh poL2L2TbXgs8SVDieZosAT7 rfGTuEQscWr1lpMropCfbTT 9lTVSyoypjVVEzuJ3bNPDbj HRvbTog EM9nGECydschq879VfXiHKJ 0EHEycUWtN5WggT2nDzBrBW CbXSMzM0UvcSPjLUfcC167Y GxlZnQ7 IDKcgfKvB1YeMAEjlPdpYjW 5v5H5Tm0QRX0HVCX0M5RvXc o7ROVdtYlwTD3iyODbEIssG d1edBwb eAarPM3bSLYsgoojGKEhwN9 iPETbbAFqgNofDK9kUFDbve ell983BdVzGKH9EKHebJOpE 8DqoP2t NeXaHNWnSJOpJ7FlpAIqKAs uY164BXerPqL5EFHefnXoL4 JbLGBigGzmLnU3o0P8Gw5RE DwvdGQ+ WH99rb52B4RnHfnvUya9FNF mWXZ1fIS0vQ4jQNTjLFvka7 E1fMP1T9NtwbDznb3xi7izM XBzZTog J36gvIJfo9N8DQIquPZ1BBQ mdAicLbCqyV43Zxw+PGNvbG zzw7KeXvotk4rso9rhkPm9M jMwJSIg bqHezBvlAYD4p9TbGi23E66 sIHdpZHRoPSIzMCUiIHZhbG qvjc9lwQ2bEj5+WRWwzNH5w KF7qL5c KzDtZuL7CDofS382QsGekKU wBgorv5bds8lmoXs8TcMtQB MwuvPilSgyZJU9r2MwUb55R 2NvbGdy o8LaWna9ni95hPOzw6C4cGW 9D9HcGSCwkbzfxROasPfiRM 5eIXMgfyprLAJbcG1hCRPcH 0a1RyCc QdL3NQbiF8JzliA9FUTtsKQ eTWVygVEVbP5aejmpe5eeoj xkJoYqHPHnYWm9EFh5DTVip WduOiBs PCB9ExE7SXF9rBFmdC5noHd xymkpfW1iUha+KCp8e8vhrB HvVR7zzSK4QX61FM95sMXsa 5N6qLV0 H9HzNDAmngvxoabmeMJ5SZA bWCJnfG93Cp1lwViaUv0oBF LjPOZ6WWEuaWEfU1IscB7cL iAjMDAw GKFpD2AofIGmOVbfU173ESf dEmN3XNWbnvQfJ2TvIRGqbN ajEdC0x2B2Fl0FYH07WE06L N74mCAf u1P1aZS7E4WhNFDotgnnrwx frET3HIZdMSVxqO68Yd9kuH loZg1yMQFsEHV6RPLpkFFcR 8ObwA8e DxFvNIVuYKWiB0PrxVDmFMl iW053FSgdDmW4VVZgraTdM8 AbYYLygPnpGzE0b3I6Ro8SY e00HV39 SN71eCVgv6H2jQS2L6QkXAK hesvukaqqwOM3ELNuVFNliD 76Ld1faCjgJx0bKLSeXXB0T FRpbWVz Z5HwzA5qXsMbWFMsBSPaF5W rbVDlGFoqC582HVuxEhG9TF AchcJwT2SyETEffTyyLwF0p 1A5Wb1G FOcdhop4U7RsTwvpjDB+PC9 0FYUhXM91dWYrzTWfa1xmsL n5SdDoCUItFHF3oIdyZKtzd 3JkZXIt Y29 (more content not included)... Normal [facility] Office/Clinic Noteon 024 Office/Clinic Note Patient: [...] 113.040 kg Body Mass Index 39.11 kg/m2 [place] Body Weight Calculated 61.437 kg BSA Measured 2.31 m2 General: Alert and oriented, No acute distress. Musculoskeletal: Positive point tenderness over the left gluteal region as compared to the right. Positive straight leg raise. Positive piriformis muscle sign with external rotation of the hip with adduction towards the opposite shoulder.. Impression and Plan Diagnosis Sciatica of left side (TAU02-EJ M54.32). Plan: Discussed with patient stretches she can do to help with her sciatica. They were demonstrated in the office. Will hold off on any steroids.. Orders Orders Evaluation and Management: [id number] Office visit - established pt, Level 3 (Order): 06/01/2024 13:28 EDT, Qty: 1, Sciatica of left side. [Electronically Signed on: 06/01/2024 13:56 EDT] Anthony Gomez MD [Verified on: 06/01/2024 13:56 EDT] Anthony Gomez MD Normal [facility] .Auto Diff 1on 05-28-2024 Auto Meade % 5 % Normal 1-12 [facility] Comment on above: Performed By: #### 1 [id number], 3928960, 6993068, [id number] #### [facility] (DEFAULT) [address] [place] [address] Baso Abs# 0.1 x10 Normal 0.0-0.2 [facility] Comment on above: Performed By: #### 1 [id number], 5128801, 1744510, [id number] #### [facility] (DEFAULT) [address] [place] [address] Basophils/100 WBC (Bld) 0.6 % Normal 0.2-2.0 [facility] Comment on above: Performed By: #### 1 4753587, 1773837, 9169215, [id number] #### [facility] (DEFAULT) [address] [place] [address] Eos Abs# 0.3 x10 Normal 0.0-0.4 [facility] Comment on above: Performed By: #### 1 5616453, 7166044, 1157276, [id number] #### [facility] (DEFAULT) [address] [place] [address] Eosinophils/100 WBC (Bld) 2.5 % Normal 0.9-4.0 [facility] Comment on above: Performed By: #### 1 3155781, 2271248, 5048510, [id number] #### [facility] (DEFAULT) [address] [place] [address] Lymph Abs# 3.6 x10 High 1.3-2.9 [facility] Comment on above: Performed By: #### 1 7053749, 6004084, 6465505, [id number] #### [facility] (DEFAULT) [address] [place] [address] Lymphocytes/100 WBC (Bld) 27 % Normal 14-48 [facility] Comment on above: Performed By: #### 1 2870225, 9291199, 0662858, [id number] #### [facility] (DEFAULT) [address] [place] [address] Meade Abs# 0.7 x10 Normal 0.0-0.8 [facility] Comment on above: Performed By: #### 1 9136101, 6499030, 8213578, [id number] #### [facility] (DEFAULT) [address] [place] [address] Neut Abs# 8.4 x10 Normal 1.5-9.2 [facility] Comment on above: Performed By: #### 1 1321844, 1910893, 9614435, [id number] #### [facility] (DEFAULT) [address] [place] [address] Neutrophils/100 WBC (Bld) 64 % Normal 44-88 [facility] Comment on above: Performed By: #### 1 4658444, 5651835, 7678560, [id number] #### [facility] (DEFAULT) [address] [place] [address] CBC w/ Auto Diffon 4 Man Diff? Auto Invalid Interpretation Code [facility] Comment on above: Performed By: #### 1 [id number], 3700469, 1134061, [id number] #### [facility] (DEFAULT) [address] [place] [address] 20428 Erythrocyte distribution width (RBC) [Ratio] 13.6 % Normal 11.5-15.0 [facility] Comment on above: Performed By: #### 1 2382474, 5534372, 3643377, [id number] #### [facility] (DEFAULT) [address] [place] [address] 68623 Hematocrit (Bld) [Volume fraction] 42.0 % High 33.7-40.4 [facility] Comment on above: Performed By: #### 1 1319621, 9806305, 0943146, [id number] #### [facility] (DEFAULT) [address] [place] [address] 59108 Hemoglobin (Bld) [Mass/Vol] 13.8 g/dL Normal 11.3-15.9 [facility] Comment on above: Performed By: #### 1 9648066, 7813771, 9768030, [id number] #### [facility] (DEFAULT) [address] [place] [address] 93492 MCH (RBC) [Entitic mass] 28 pg Normal 24-34 [facility] Comment on above: Performed By: #### 1 1491646, 2986188, 4400155, [id number] #### [facility] (DEFAULT) [address] [place] [address] 35988 MCHC (RBC) [Mass/Vol] 33 g/dL Normal 26-37 [facility] Comment on above: Performed By: #### 1 0881938, 5977512, 3175173, [id number] #### [facility] (DEFAULT) [address] [place] [address] 55259 MCV (RBC) [Entitic vol] 86 fL Normal 81-100 [facility] Comment on above: Performed By: #### 1 5644271, 2604938, 0275170, [id number] #### [facility] (DEFAULT) [address] [place] [address] 16633 Platelet 352 x10 Normal 138-427 [facility] Comment on above: Performed By: #### 1 7563717, 3332430, 6197104, [id number] #### [facility] (DEFAULT) [address] [place] [address] Platelet mean volume (Bld) [Entitic vol] 7.8 fL Normal 6.3-10.2 [facility] Comment on above: Performed By: #### 1 2970901, 1513808, 2874184, [id number] #### [facility] (DEFAULT) [address] [place] [address] RBC 4.90 x10 Normal 3.70-5.30 [facility] Comment on above: Performed By: #### 1 1498334, 6644954, 6286999, [id number] #### [facility] (DEFAULT) [address] [place] [address] WBC 13.1 x10 High 3.5-10.5 [facility] Comment on above: Performed By: #### 1 9272706, 0880806, 9473324, [id number] #### [facility] (DEFAULT) [address] [place] [address] CMP Standardon 05-28-2024 eGFR Non AA >60 Invalid Interpretation Code [facility] Comment on above: Performed By: #### 1 2331490, 7328459, 0814476, [id number] #### [facility] (DEFAULT) [address] [place] [address] eGFR AA >60 Invalid Interpretation Code [facility] Comment on above: Performed By: #### 1 2968662, 8568335, 6754881, [id number] #### [facility] (DEFAULT) [address] [place] [address] 87352 Albumin [Mass/Vol] 4.4 g/dL Normal 3.5-5.0 [facility] Comment on above: Performed By: #### 1 6872187, 3304308, 0894884, [id number] #### [facility] (DEFAULT) [address] [place] [address] 30141 Albumin/Globulin [Mass ratio] 1.2 {ratio} Low 1.4-2.6 [facility] Comment on above: Performed By: #### 1 2406348, 7471724, 6160424, [id number] #### [facility] (DEFAULT) [address] [place] [address] 16913 Alk Phos 46 IU/L Normal 32-91 [facility] Comment on above: Performed By: #### 1 9059998, 6536106, 4193493, [id number] #### [facility] (DEFAULT) [address] [place] [address] 46519 ALT [Catalytic activity/Vol] 29.0 U/L Normal 14.0-54.0 [facility] Comment on above: Performed By: #### 1 8706511, 8017358, 9160849, [id number] #### [facility] (DEFAULT) [address] [place] [address] 80030 Anion gap [Moles/Vol] 11.4 mmol/L Normal 5.0-19.0 [facility] Comment on above: Performed By: #### 1 8683267, 7256087, 2311081, [id number] #### [facility] (DEFAULT) [address] [place] [address] 27495 AST [Catalytic activity/Vol] 30 U/L Normal 15-41 [facility] Comment on above: Performed By: #### 1 0016060, 3809873, 5853298, [id number] #### [facility] (DEFAULT) [address] [place] [address] 29095 Bili Total 0.4 mg/dL Normal 0.3-1.2 [facility] Comment on above: Performed By: #### 1 3285883, 5198872, 1203200, [id number] #### [facility] (DEFAULT) [address] [place] [address] 29377 Calcium [Mass/Vol] 8.9 mg/dL Normal 8.9-10.3 [facility] Comment on above: Performed By: #### 1 4340762, 5542538, 7236074, [id number] #### [facility] (DEFAULT) [address] [place] [address] 38842 Chloride [Moles/Vol] 104 mmol/L Normal 101-111 [facility] Comment on above: Performed By: #### 1 8447881, 8225174, 7448482, [id number] #### [facility] (DEFAULT) [address] [place] [address] CO2 [Moles/Vol] 20 mmol/L Low 21-32 [facility] Comment on above: Performed By: #### 1 6466840, 3238570, 8441700, [id number] #### [facility] (DEFAULT) [address] [place] [address] Creatinine [Mass/Vol] 0.66 mg/dL Normal 0.60-1.30 [facility] Comment on above: Performed By: #### 1 9140480, 0419761, 9372691, [id number] #### [facility] (DEFAULT) [address] [place] [address] Globulin (S) [Mass/Vol] 3.5 g/dL Normal 1.5-4.3 [facility] Comment on above: Performed By: #### 1 2706431, 7396528, 9703662, [id number] #### [facility] (DEFAULT) [address] [place] [address] 25374 Glucose [Mass/Vol] 100.0 mg/dL Normal 74.0-118.0 [facility] Comment on above: Performed By: #### 1 3336494, 0315943, 0626566, [id number] #### [facility] (DEFAULT) [address] [place] [address] 31283 Osmolality 263 mOsm/L Invalid Interpretation Code [facility] Comment on above: Performed By: #### 1 4493499, 1542087, 3931844, [id number] #### [facility] (DEFAULT) [address] [place] [address] 58313 Potassium [Moles/Vol] 3.4 mmol/L Low 3.6-5.1 [facility] Comment on above: Performed By: #### 1 2606021, 3411725, 8115249, [id number] #### [facility] (DEFAULT) [address] [place] [address] 48865 Protein [Mass/Vol] 7.9 g/dL Normal 6.5-8.1 [facility] Comment on above: Performed By: #### 1 4759030, 5680785, 5963866, [id number] #### [facility] (DEFAULT) [address] [place] [address] 68821 Sodium [Moles/Vol] 132.0 mmol/L Low 136.0-144.0 [facility] Comment on above: Performed By: #### 1 6814130, 8108390, 2550800, 7110831477 #### [facility] (DEFAULT) [address] [place] [address] 52514 Urea nitrogen [Mass/Vol] 9 mg/dL Normal 8-26 [facility] Comment on above: Performed By: #### 1 2580196, 4941126, 4721346, [id number] #### [facility] (DEFAULT) [address] [place] [address] 55050 Urea nitrogen/Creatinine [Mass ratio] 13.6 mg/mg Normal 4.6-16.2 [facility] Comment on above: Performed By: #### 1 0323106, 5867399, 5404016, [id number] #### [facility] (DEFAULT) [address] [place] [address] 82798 ED Clinical Summaryon 2023 ED Clinical Summary [facility] - Emergency Department [address] [place] [address] ED Clinical Summary PERSON INFORMATION Name: SHERLY ASTUDILLO Age: 24 Years Sex: FEMALE : 2000 MRN: Acct#: Visit Reason: Back pain; Abdominal pain - ; ABD PAIN LT SIDE, LT LEG NUMB Arrival: 05/28/2024 14:14:57 Discharge: 05/28/2024 17:55:00 LOS: 000 03:41 Check In: 05/28/2024 14:14:57 Checkout:05/28/2024 17:55:00 Address: [address] [place] [address] PCP: Anthony Gomez MD PROVIDER INFORMATION Provider Role Assigned Unassigned Evonne Cheung PA-C ED PA 05/28/2024 14:19:07 Daisy Freire [employer] TE[employer] Nurse 05/28/2024 14:26:14 VITALS INFORMATION Vital Sign [...] Home PATIENT EDUCATION INFORMATION Instructions: Muscle Strain, Kffh-aw-Xlrc; Sciatica, Itis-me-Fmat; Back Exercises, Csku-wt-Baix Follow-Up: With: Address: When: Anthony Gomez MD [address] [place] [address] Within 3 to 5 days DIAGNOSIS: 1:6 weeks gestation of ; 2:Low back pain with left-sided sciatica; 3:Pain in the side Patient Understands: Yes - Patient/family/caregive r verbalizes understanding of instructions given Comment: Normal [facility] ED Clinical Summary [facility] ? Urgent Care [address] [place] [address] Clinical Summary PERSON INFORMATION Name: SHERLY ASTUDILLO Age: 24 Years Sex: FEMALE : 2000 MRN: Acct#: Visit Reason: UC - Abdominal Pain; LT SIDE PAIN, LEG PAIN Arrival: 05/28/2024 14:07:02 Discharge: 05/28/2024 14:10:00 LOS: 000 00:03 Check In: 05/28/2024 14:07:02 Checkout: 05/28/2024 14:10:00 Address: [address] [place] [address] PCP: Anthony Gomez MD PROVIDER INFORMATION Provider [...] left flank pain; Currently Patient Understands: Comment: [facility] ED Note-Nursingon 05-28-2024 ED Note-Nursing [employer] at bedside wh syeda US was performed. pt tolerated well [facility] ED Note-Nursing Pt ambulatory back t o [...] Pt is A/Ox4 call light within reach [facility] ED Patient Summaryon 024 ED Patient Summary [facility] - Emergency Department [address] [place] [address] PATIENT DISCHARGE INSTRUCTIONS Patient Information Name: SHERLY ASTUDILLO Age: 24 Years Date of : 2000 Reason For Visit: Back pain; Abdominal pain - ; ABD PAIN LT SIDE, LT LEG NUMB Arrival Time: 05/28/2024 14:14:57 Primary Care Physician: Anthony Gomez MD Attending Physician: Pam Gao MD Comment: Visit Diagnosis: Diagnoses This Visit 6 weeks gestation of (Z3A.01) Abdominal pain - ([id number]) Back pain ([id number]) Low back pain with left-sided sciatica (M54.42) Pain in the side (R10.9) The Pharmacy at [facility] is open Tuesday through Tuesday [...] alcohol and/or drug addiction problems; contact the [facility] & [facility] 28/03 Crisis Hotline -Text 3WYHB to 224114. If you received any narcotics, sedation, or [...] documents With: Address: When: Anthony Gomez MD [address] [place] [id number] Within 3 to 5 days Medication Information: The exam and treatment you received today in the [facility] Emergency Department were for an urgent problem and are not intended as complete care. It is important for you to follow up with a doctor, nurse practitioner, or physician?s diploma dental assistant for ongoing care. If your symptoms [...] so we can reach you if necessary. [facility] Emergency Department has provided you with a complete list of medications post discharge. Please inform your pathologist assistant/provider of your visit and for further instruction [...] can happen (more content not included)... Normal [facility] ED Patient Summary [facility] ? Urgent Care [address] [place] [address] PATIENT DISCHARGE INSTRUCTIONS Patient Information Name: SHERLY ASTUDILLO Age: 24 Years Date of : 2000 Reason For Visit: UC - Abdominal Pain; LT SIDE PAIN, LEG PAIN Arrival Time: 05/28/2024 14:07:02 Primary Care Physician: Anthony Gomez MD Attending Physician: Spenser Fang Comment: Patient Education Medication Information: The exam and treatment you received today in the [facility] Emergency Department were for an urgent problem and are not intended as complete care. It is important for you to follow up with a doctor, nurse practitioner, or physician?s diploma dental assistant for ongoing care. If your symptoms [...] so we can reach you if necessary. [facility] Emergency Department has provided you with a complete list of medications post discharge. Please inform your pathologist assistant/provider of your visit and for further instruction [...] (R10.9) Currently (Z34.90) UC - Abdominal Pain ([id number]) If you received any narcotics, sedation, or [...] for Disease Control and Prevention May 2014 [facility] Lactic Acidon 05-28-2024 Lactic Acid 9.1 mg/dL Normal 4.5-19.8 [facility] Comment on above: Performed By: #### 2 [id number] #### [facility] (DEFAULT) [address] [place] [id number] UA [id number] 05-28-2024 UA Bacteria Trace [facility] Comment on above: Order Comment: Urina lysis Microscopic order added on by Ping4 Expert Rules system. Performed By: #### 3 [id number] #### [facility] (DEFAULT) [address] [place] [address] UA RBC None Seen [facility] Comment on above: Order Comment: Urina lysis Microscopic order added on by Ping4 Expert Rules system. Performed By: #### 3 [id number] #### [facility] (DEFAULT) [address] [place] [address] UA Squam Epi Moderate Normal [facility] Comment on above: Order Comment: Urina lysis Microscopic order added on by Ping4 Expert Rules system. Performed By: #### 3 [id number] #### [facility] (DEFAULT) [address] [place] [address] UA WBC 0-2 [facility] Comment on above: Order Comment: Urina lysis Microscopic order added on by Discern Expert Rules system. Performed By: #### 3 [id number] #### [facility] (DEFAULT) [address] [place] [address] UA w Culture if Ind Standard on 05-28-2024 Breakpoint UA [facility] Comment on above: Performed By: #### 3 [id number] #### [facility] (DEFAULT) [address] [place] [address] Color (U) Straw [facility] Comment on above: Performed By: #### 3 [id number] #### [facility] (DEFAULT) [address] [place] [address] Culture? Not Indicated Invalid Interpretation Code [facility] Comment on above: Result Comment: Resu lt created by rule GL_MAGR_ADD_UA_CULT Result created by rule GL_MAGR_ADD_UA_CULT Performed By: #### 3 [id number] #### [facility] (DEFAULT) [address] [place] [address] Glucose (U) [Mass/Vol] Negative [facility] Comment on above: Performed By: #### 3 [id number] #### [facility] (DEFAULT) [address] [place] [address] Ketones Ql (U) Negative [facility] Comment on above: Performed By: #### 3 [id number] #### [facility] (DEFAULT) [address] [place] [address] Micro? Indicated Invalid Interpretation Code [facility] Comment on above: Result Comment: Resu lt created by rule GL_MAGR_ADD_UA_MICRO Performed By: #### 3 [id number] #### [facility] (DEFAULT) [address] [place] [address] UA Bilirubin Negative [facility] Comment on above: Performed By: #### 3 [id number] #### [facility] (DEFAULT) [address] [place] [address] UA Blood Negative Normal [facility] Comment on above: Performed By: #### 3 [id number] #### [facility] (DEFAULT) [address] [place] [address] UA Clarity SL CLOUDY Abnormal CLEAR [facility] Comment on above: Performed By: #### 3 [id number] #### [facility] (DEFAULT) [address] [place] [address] UA Leuk Est SMALL Abnormal NEGATIVE [facility] Comment on above: Performed By: #### 3 [id number] #### [facility] (DEFAULT) [address] [place] [address] UA Nitrite Negative Normal NEGATIVE [facility] Comment on above: Performed By: #### 3 [id number] #### [facility] (DEFAULT) 74 [place] [id number] UA pH 6.0 Normal 5-8 [facility] Comment on above: Performed By: #### 3 [id number] #### [facility] (DEFAULT) [address] [place] [address]08 UA Protein Negative Normal NEGATIVE [facility] Comment on above: Performed By: #### 3 [id number] #### [facility] (DEFAULT) [address] [place] [address]84 UA Spec Grav 1.010 Normal 1.001-1.035 [facility] Comment on above: Performed By: #### 3 [id number] #### [facility] (DEFAULT) [address] [place] [address] 81664 UA Urobilinogen 0.2 mg/dL Normal 0.2-1.0 [facility] Comment on above: Performed By: #### 3 [id number] #### [facility] (DEFAULT) [address] [place] [address] Urine Source Clean Catch Normal [facility] Comment on above: Performed By: #### 3 [id number] #### [facility] (DEFAULT) [address] [place] [address] US 1st Trimesteron 05-28-2024 US 1st Trimester [...] Anthony Yeh MD 05/28/24 7:34 pm Technologist: [facility] US Transvaginalon 05-28-2024 US Transvaginal EXAM: US [...] Anthony Yeh MD 05/28/24 7:34 pm Technologist: [facility] Urgent Care Note- Provideron 05-28-2024 Urgent Care [...] History Medical history: Resolved Ankle fracture, left (08380219): Resolved. 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 Surgical history: Cholecystectomy (43965614).. Family history: Anxiety Father Sister Diabetes mellitus [...] per month 11/19/2023 Substance use: Current Comment: [employer] - 11/19/2023 09:33 - Charles ALLRED, Marisela [...] Diagnosis Abdominal pain, acute, left upper quadrant (YBP29-DK R10.12, Discharge, Medical) Acute left flank pain (SHP83-ZM R10.9, Discharge, Medical) Currently (UNW69-ON Z34.90, Discharge, Medical) Plan Condition: Stable, Guarded. [...] Fang [Verified on: 05/28/2024 14:16 EDT] Tellez HUMBLE Spenser Rosy Normal [facility] hCG Quantitativeon 4 hCG Quantitative 19526.0 mIU/mL High 0.0-0.6 [facility] Comment on above: Result Comment: Post -Menopausal Reference Range is: 0.1-11.6 mIU/mL Performed By: #### 1 [id number] ####[facility] (DEFAULT)[address] [place] [address] HCG ( test) Ql (U)o n 05-08-2024 Interpretation and review of laboratory results Abnormal [facility] Preg Test, Ur Positive [facility] Progress Noteson 04-24-2024 [employer] Authentication Interface Message Text Attestation signed by [...] [facility] PATIENT VISIT CHIEF COMPLAINT: Toothache and Cameron Teeth HISTORY OF PRESENT ILLNESS: 24-year-old female [...] canal DIAGNOSIS: Abnormal tooth eruption (Primary Diagnosis) [[id number]] Impacted third molar tooth [[id number]] Caries, Impacted wisdom teeth, and Retained dental root ASSESSMENT: #1 Caries #16 Caries #17 and #32, Partial bony Impaction with pericoronitis PLAN: Surgical extractions #'s 17, 32, Extractions #'s 1, 16, and with local anesthesia Pavan Lee DMD, MD Normal [facility] [employer] Authentication Interface Message Text Normal [facility] Coding Summaryon 03-28-2024 Coding Summary HTMLBase 64 HcxxvekdKAo9zRi+PGhlYWQ +LV9IRITcH43yxEPkcR6aZ1 NMTElOSywgQVBQTElOSyIgb fHrDF9izGCiFBAc IC8+PD8fQGStWfxipCAhc5X 5iGZ0S35ddi5dMShinJY9GZ CdDvPqcfezc0ohzPo5MXqnF mluOyBt UAVqnW00FJF5xN05Ss52tJB daMZrj5dkbEc3IaOqZDDlBY N6mJnyDGkvv8IzYHOtQ08oe SEeo6Z1 SPUbpLlwkZUfErVvpSW5fL3 jPWvdztwfj2hydmexEsc9we 11sIIkp5D3lKC8Y1MffnN8X GJvbGQg HjannMMAfK9ohrgfx2xwyoy iMoXsCHXfDFb8TVx4ZIKjhZ xhZtEbEF11TTY1RSGoccYjK 2FsLWFs xFxbXcD4a3V3Jx1VD3UBIeu wH2TUTDRQQCroyIH+PC90cj 25C0ImTvdiXmy9NWKrVYS9w QZ9hJ0j XKCmILbrg6V9wBR2C4RcoiJ aik3ys2vzZMDnJQwgH64riV Ggj7X8TGSanZS6YYPqzDttU iBzaG93 Oyc+RXLywJeel1WqKbcsc5d as0qulPq9CtfrGQBmfqZoyT eoQEG4p2QxMy6aIPGkbIZ8j SK5eT9i VcTzPsV7IChkQ900NkAorUP aYebnS44hE7BbaEV+PHRyPj b6VYXptIjuPS8nF1IvYURrh mctbGVm wRyhNG5iJWSjsmerSRZozV2 yVWRvN3g1XoIcJoK2MRfmT8 MxGRSxvcmoSp80rC9qMwIsZ vP5EGwq P4OpyzE0SOEdgDKrFCxtJWI 2I00yu7P4XLCyEGSkIIE6nP A5eI2dlZnuzosaoGXcqYgcc mVydGlj KCyjTMdyS967WEMkgFpdGyL vZGluZyBEYXRlOiAgMDcvMj QvMjAyNDwvdGQ+ZUDcQIL8k WxlPSAn uHAsGRugAb1vjUxswSwnTE7 oXUAwxiwnICTbfP6yWMAazP NdmKozCU1kETFvghckj411A iAxMHB0 MFEczRHrM5GwqR8cLpBjKUS yLMAlQ4KccGLjAGkkC930IJ qhZwP9YWVcfdBxV3NlUKYpj WduOiB0 k9S9Kq3Tq8LurlsrI9TgsGZ gCxYvMnjiVMc6T7IvLghnbJ I+FV60AJTjDF18LTh6QNC5s WxlPSdi PPWfR7StmH8tTvSvZTLaLBA kOyc+PHRhYmxlIHdpZHRoPS mqFUQcWzIinCyfFH1xTj1yP GVyLWNv oDzbbUHhAwAex6ydOLGbYGf aEU3baYvlT1ZmiPC5STJzh1 y2Fb38U95aK9JadGD+PGNvb CI7hKI1 qV7hNhYjBgA4UBcrG442RwH aoGLsBtxhw8icl3ovdSw8Ot K1CMLjskHdtMqqMEM8f4ErC q45B14n IHdpZHRoPSIxNSUiIHZhbGl jrz4inS5jQn5+OXQufOW5eC H4iW9qBgIuUrQ9ADecQ678H nRvcCIv Ulnwe0kyk8eoiTs2NdSsIUI gvrXwwXljXCK3l8LlTz97J5 WjbPhst3AvGxz3ic82qYCcl 8U6sOE0 U6NeHCLextignNCaeTqsHX5 fHQRrwuvkILKctK1fFPVmI6 l8VuHtYpV4WWrdR0DehtE7N GJvbGQg PWYrjBQXmP6vzyjup7jlcxt pCdDaNHNrQEo8NKv1XNOtzE uuUiVcOZG5RpV8ZCD8aQUuu T8dwGcq ctzybV1oHcs+POO6xXMjnFP QAR0lYazdhAX+SCBrVBD5eA ekCLzlECXnxI5zUBHmJ1b0B iAwLjA1 DZssW0HfpoQ6CNFeiIOsVFI fyFVLdP9wefovv6csakoqWp LjVXRcNIn6RHj6JQNyvMzgY iBsZWZ0 IwA6KVR2eLWlyZ6cgDvphyc hjA4hZju+ZqkoyLjrZKU2MN s9K9UxWev1KFJimUbzIG8fp GFkZGlu Zm9lqIjmqWheGO8aZOHjkha xv547CwSge3opFSPypKTnSE swAMB6G67cl9C3VDLgXATsV QP5iGW3 sX3xwSnlpadkeUNmnNkkhqO wyHqbCEdiYBsbN466ZXGqsE hfLbLmDQb6A8VcZpk6QMNxn DnoZJ4g jZJuRUtmHj4caNqdeWorHO8 iXDVfmymob454IjGua6swST VgjWGoXEzbEUP5V89bn1G5Z CMwMDAw TBY2wJZ9tY5cgPkuxvkcpME mdDsgdmVydGljYWwtYWxpZ2 74RGFdhOhyOsUwoYc3R9WmT nr1BSOh rBifGJ3qePRlAQqdPx2roTj riQkoTC0rHDLvjlspk517Uw Vgy9khOURmaQCkCYsrIIE8F 68tk3I4 HFJhPGKyVJU1aVD6qT7jhLu nbjogbGVmdDsgdmVydGljYW biAPuiU761WTSdaAteKbKaj GllbnQg XZlsFAc0W7SlMazwkWW+PC9 6JEHsOH02dWZzmSIzz1fqlH e4PxCiICDwRCU4uXpnACitk 3JkZXIt G35ugBWqg0U8SAEvwVmieOR kUaGeqWA8mZ5vDHnhlggnd5 tzhoxmQmwfl0mfpb99lY03N 29sIHdp ZHRoPSIzMCUiIHZhbGlnbj0 azZ7rUx9+ZHXxdQR3eQX3uV 3bHQRrQoT8BPmiD350AgVyt CIvPjxj j9phj9pqcEl8BcX0HQZrdkE ayDbtNNF6v6FuUb43T41nZZ dpZHRoPSIyMCUiIHZhbGlnb k3ooM0o Ii8+MILyqKA8hUP1oH7tZkW yQdN0YAysO553YpQniECuIf ooD68aD3MsaRG+MYIcQnb3W CBzdHls JM6naPEeSZfoUd8nDRF6IcC rMbLuVBsjM9HvHETqlciuus svrPG5TXUiTTLyoY97Tx8en DogMTBw uDNGcM5erbcby4palzelQdL gBRZsBOi9ZOz4KSRepSzdMe CrGIZ4PqX0UNT5xMZboB8jp Glnbjog uQ8cV6IlEGYsgooiOt10dY9 ySdUnFnQ4PPqbPue+Q1JBV0 ZPUkQsIEJSRUFOTkUgTUlDS EVMTEU8 O2FaKgm2IBFckXqfQC1jcNT bQShhGp4veGikqWndJJ7lGH QjqqawFFJjiD4xEXPgxLGdp DkgRK3s JHJaekbac314QjTxFSM7MUL xcDLjU1CdoS1vPuKuCHLqPK XqI6HyjESgEGbeS215NAwfB gT0EWJc jvUiC4HgGYJmdWabBgT7v7M 8Sl7fRr5zDS0nMNy5MP69QI 54hRDbv5X6mWG7Z8CtMJCvs mctcmln tWO1KMIpJUNptC82pCUtKQk fXg9gc7F6p410VQTsSNLprY 49Ll7poLndCLMnqWIQcV7hd yxkv3zu itncRtIqENMmXFi4XTr7LWP gjGufYuEpKAQ2CwO9DSO9uT DxlO2zgGjfbbnsvL2wQsr+M jYgWWVh ntV1P8XrTdh5PQHttZtlVX7 mcDPzOFewAx0mnUjvsArbBL 7qQOBcfptpWHQybZ0lCUSas HRvbTog ZS0sIVJswtyzt588TfVxUYG 1RMEcuBEyS8OnzN0iHkKhSL LaYUFiA9XpxPGnUVzkL821J GxlZnQ7 LZWpkhMlS0XuXCHnpDwqIgZ 6b2R5En8SCH1SLYO1U0KtJw f6UJLbpHscLE8ayBKjTHlcE j6keJks iSjxCM4aLTNztswxBYNtoB0 zKXAagOHygMewAS4hVJLcco bsz222IdDzIIA4NSNuhEPjC 5HdfP5b BgNdTUHtCPStX8GhtYJdEIo hZ520HEmzSoZ4EBQjwdAzM9 VgCCHktByxKrC4l5P5Fe5JB DwvdGQ+ CN06ls05U0VbEcrzFks8ULG yNSY5yZG2bS6nULQaTLymj6 S9eND9I4ZiwnYkmi1ir4duI XBzZTog P98ncMRqh5Y7GDVdjIQ8KPE mjCvoJbWyyD09Ixd+PGNvbG onc9PbXnoug2oae9jyzQy7V jMwJSIg npLkuWsdVJZ1x6VfBd22A40 sIHdpZHRoPSIzMCUiIHZhbG cuiu3qlU9aFh0+DASlyIT2z VM0tR8r KgHlSbC6AWhtK148UdBtjUT aBnnlh8fmb0roxUo2LvReBL AwssStgGreGMO4o9HjIf02R 2NvbGdy c8HkDcx4mz51vZSlz3K0hAJ 3Z6PvPXJojqryqWAenPdyFX 4lOZKjmlgwIJZezA4mIBNaG 6m0NlMn WuT0QHtnM6DjvgX9UCWmbQG tTLHflYZZiO7xahxtx0qorx dtJzGqJZSjPPt2HWj0IBNvy WduOiBs VEA8CmU5GPR1fGOrrN5roSj lrovmmI5lPnm+QAf5p3yttU LwIU6miTQ8PI92TX85qKDqy 6K3lQC1 Z1HkNZHrkmqlzfxyiQP7HEB hQTWtoB53Iz1gnActJw2pHI AbOUD2AJRejVGmC3KuaJ2tX iAjMDAw JGWyS2IutIUqCJweN432PJx zWjU1NRFanuPmB9HaOLZadK phZvW2l0L7Xu2PNN76JI45P H97mNCb f6A2rPD9M6QrQARueczrmeo osYE1ETQyNLTnzJ76Oa7dfD vyDm9zTFWeQYP8KJTwlLItK 4QylN5f FmEsEBDkEEEhB8FidSZoVAj mK404FNicXmR4YNBmpuYpK1 YkJRYcaAxjGeQ0e8T3Jb3PV e43ZD12 NR34yXWjt8G5dIY3Y5CrQPW tuqzgwlndbMH9NIQdRGUtqW 56Aq2rdZrbLn2iRDVmKOD2Q FRpbWVz C8VhwQ4mPdMyZJLcWHXuF2H urZMsNKyfS708AHypUyL7FW ZzcqRwB5CyQJDhzHrlHrV7h 7D6Tf7Q RPqpbyk5I7JhWgcykPD+PC9 3DBHeSZ30tQTtuKVpv4fhgG k8VsMgJKUhPRH5kKnnLEcxf 3JkZXIt Y29 (more content not included)... Normal [facility] Progesterone LCon 03-15-2024 Progesterone LC 1.4 ng/mL Invalid Interpretation Code [facility] Comment on above: Result Comment: Foll icular phase 0.1 - 0.9 Luteal phase 1.8 - 23.9 Ovulation phase 0.1 - 12.0 First trimester 11.0 - 44.3 Second trimester 25.4 - 83.3 Third trimester 58.7 - 214.0 Postmenopausal 0.0 - 0.1 Performed At: [facility] [address] [place], [place] [id number] Sarah Beal PhD Ph:[phone] Performed By: #### 3 [id number] ####[facility] ([facility])[address] [place] [address] Provider Orderson 03-14-2024 Provider Orders [id number] [id number]#1.00O [facility]GTIFF [facility] Coding Summaryon 02-20-2024 Coding Summary HTMLBase 64 VqxhiobuJBj0cMv+PGhlYWQ +LH9FGSTuD52efGPqiA4eD8 NMTElOSywgQVBQTElOSyIgb zLxWV5flBBdRFHo IC8+LQ2mVJBfPykuuWQxl4X 3vXQ5Z40kwm2aXCwzsQB6JA AnNlMyhlaph4ukoYo9MVhrS mluOyBt ZTDhgS26GBB8mX04Qx29sWX qiGMts6znlEg1UrEpXGWrSL V3sZdlYZmhg1EjKIOaI11yl MWwr6A7 UJLboZyghWFyQaSqtGD5wQ6 uIHbjxknfk0lfsuqgKgt6zb 96cQGbg4Z0hVS8J6VqodM4H GJvbGQg PqhpzBGSbS9zvrigf2swphu fDmVpTBKzYEj8NDi8NWMynA xiDjXpEW12ETV6YGWcivCtI 2FsLWFs wXhfLkU1t2V1Od8QV2YKJnh vN5XXQGHZEBxglEH+PC90cj 42C5QmPdxpOww8ONQzNTR0z WK0lY7r HUGoLDsst4T9aBH4J1PduqN apr0ht3kwENYnIObvS40exM Wpn6C9LADtiKU4ULOhoWwnV iBzaG93 Oyc+CGSyxZgiq9AvArhno3y vy6ogzTc7HipjZBLoqpUufL wlDSJ3a8SxXt6wAWOfmPF4l HE7yL8l WyWiLnK7AIllJ066DaMzgYL hXhzkO34sN8ZgjPV+PHRyPj x0QZQklLcfVW1vR0EcJSCvr mctbGVm hKedZV8vSDFqmiufHBZehS5 mYMSdM8t1NgYeOuS0TIavW3 BsVPMsihctZu41pD7eLxHvC vF7JKlk M7KoogP0OOUlhHIxRMbyBLA 3H37fo3P8GVKlAYPxREQ2bO X1cS3kkPvhicfasPFipHxwn mVydGlj DYdqMTleY783JDAskUwcGxB vZGluZyBEYXRlOiAgMDYvMT cvMjAyNDwvdGQ+FWWaLFE5y WxlPSAn zOCsMLytKg5hyRrtnNuuVL6 fATPyzuqcICAxsS4xLVCnkK RivBubKC5wFGPtostva011V iAxMHB0 HYHpzNNmL5MqnL9xCrQbXGN rDIRxS2NdoFOwSXxdS510GC cbJuS5AFJoxhQuC4OkWWPlf WduOiB0 s8A0Vl1Bj3SzfimcF8GjbQY vQlFbJlrnLNg9M1NkNujrwR I+RJ53NNGoRA73NMt3IUM7y WxlPSdi CKIjA5AplB1dBwHrIEGwGJR kOyc+PHRhYmxlIHdpZHRoPS zdRNQkWoTbxJsjXN4rJw5gQ GVyLWNv mMpjnICvSzIer8dnMCHyGRo aHH3bgRpfV4EktUB7TLKeg7 x8Do68P49vW5EbpHG+PGNvb SW6jYY1 kB3vPvPnJvF5SCvrW635HoC pjHOnQauol9dlr4ocqAi0Pa F6BTBkbfLwgUgyLPZ5g2ZzH f65P10r IHdpZHRoPSIxNSUiIHZhbGl spx1dtM5eZa3+SYArrEO1pM N5xF5aXiChRuK8YNqgZ257O nRvcCIv Jthiz9zrd4umpVm3RvDoBEZ dxnOoiNjuSSM1w5GdEr13P0 RspPvor0ZgLvx5zj92wRKbf 9F2uQU5 F6EcNVZqfnqlkTAfqMutHT9 eNVMyjbpxCBUepJ0nKBFaL4 t9CtWkIkS7ZZliY6AtdxF6N GJvbGQg IKUaqGADpR8twesvx6debee uKgWnUEBbOOe8ZKw6IYKtxE rkTcVjKDX2DtJ7SMC6bBZki Z9uiVpu gjgttW1mUyv+EUT9uCTwvGT BRS8tGnulqYH+NRAlLJW3hH aoAEoiIDScvA7mEGQjS5z4W iAwLjA1 KXxtE0RkphD1OKHeqNNrRSI csJNDtO4khusxs5rbzaeeCa ZuXOTnXMk8ZVi1EULspGozM iBsZWZ0 DnQ0VCQ0qEGwxC7rcImzbng kxW2mIhs+HxshiGkaISC2VA n6M0KsDjp5KXYjaAckQL5ae GFkZGlu Uv6ekUbzkEgbZO5fAQXonvi tf218LpPns4ncYGPqcLGcMM pjEDA7P74lo1I0ARJuIZEvJ HZ9qNC4 mP7oqGdjwnjpqRSlkJcjusA suIfwGJhhQRsqT152UYHnmM sjQcFcDDl9N1LyQmg8QRHhw CumEH2t zFUgQBebVk5nyOxyyKieGC6 uVPNhgqzae527CkGsr7suZQ HalUCxXVgvOAD3Z50xl1K0X CMwMDAw VEK1sTW1yL4bgWifuztnvAH mdDsgdmVydGljYWwtYWxpZ2 04KZGqsTrfViTybEw6H1PxO ec9OVGx jJqlVD7cxUBlXJmeJd5skYh yxGywVV1kUOVbmygik742Hb Vln5vlPCNazZUhTBrfQPY3I 44gv1M4 SHHrZSSaXXA5rFR6sV6gqJq nbjogbGVmdDsgdmVydGljYW roZJmxL488FSNsiHuaPzPme GllbnQg JMbkQDo2O8GuBbvmoDP+PC9 1NCRmBY40uXDqbCVyo8tjyT b9UaXuLBTxHQA5tUeuJAwqk 3JkZXIt M37rfSVjr9T9NBJuiBqmbJA pBoXvqZU8xD5oUObmswcvt2 echntoHvbpn0awkn43pI48E 29sIHdp ZHRoPSIzMCUiIHZhbGlnbj0 wsP6zMy7+ETHngAZ5iNE5kK 8vICRdIcY1HExfJ742OxOad CIvPjxj b5fqc1hmeLc5LjJ7FRCzusN rhHvaZTX0l5OcQx12F21nCC dpZHRoPSIyMCUiIHZhbGlnb s1hvO1p Ii8+BAFrcPR2oKV3iF2hOcN gWoD7POgjU440WwXolNHxEg kfF82qR3LrmOD+BXCbPbq2R CBzdHls JX4knBHwOKwpGf8kCSA6CzM mPvIeVHuaH9UtXODdclmqkd dndMK5RSGtGMZphJ68Hr0ix DogMTBw rGKGkX0nlvywp5lmsfryNuI hKCRkFKd2YZt7RXRaoCunZb VpWNY3MfW8NLF0uOErfZ7qs Glnbjog iZ0wK9ZuLHMpnwgkCu54hO6 yVhBiIwV2TWtdKps+Q1JBV0 ZPUkQsIEJSRUFOTkUgTUlDS EVMTEU8 R9MpIsg2YJKntFmmJD2tbEF tAPwsMa7glEaslZkxXS5bZI RyfyvjXMWcmJ3vCOUtwKKbi BbsZO1a ZDYsdoxep520GmHhWJB7MHC hoIIbM1NuiY9zVeMeJLCpGZ HnI1XfvDSgCJllA774TAuxC nR1HJSp jpOyN8WwWHPzvVakWnD0w6O 2Um9sHm7gYC0oNWv2YX11IF 05lCSsy8J3eOZ3P0FbKAGaw mctcmln fNZ8NDEiEKJhbS33sSKpNBd rWl6hm5C5b098MDBoXHWplV 96Xp1erGezEKKceWSZqO1bg uvnb7fy tbhoMbEcZEWhZQn0IZy9DSI dbQctToOyTHA5OjR2BXH8iG RojD5qtMgkiqtiyF4lUev+M jUgWWVh cjF3N6NsXjs4GNIcbAtyCP0 inCUhEZtcXl4cyKcxgQpyWC 9wIATflukjJQAliR3lWIXts HRvbTog NP3lDTQocieqa138YnHaRDD 0XYRaaBRwO4KvqZ7cOpQmGR ZgKUUsG7CyzDUhKXhdX571P GxlZnQ7 BRGbuuWlK9WzRYZzbMarDlE 4f4W9Cj5YEZ2EFFN8T0YmTy d7GXRrcMotOP6tuBFzYSkqG g0xeKxv yGhkCT5uKGKnvwsnMGJilO5 eHYKbyPKcvNdkXA5cSHRcyb lbk911XxGyIOP0MNYcgQCpJ 0EsrD2c RqLlZKWlTFVgK6SswUMlWWu xM768TVkmBvC6QVXnciWvF1 QlVRIpkGbfAnY2w7D4Za0EW DwvdGQ+ BK73nc64W3UeDarhUmg0HQS wSYA6jWQ0iJ7oDTYdIOmnq7 C4rKI9B9FfbhZxla9wr6wqD XBzZTog K71imJNcf1A5HKHrhDV0RPY soZtoOaUyyJ24Dyp+PGNvbG wxm3AeKqkmc1nbl3hrlEl9L jMwJSIg lwWwqWtwZSN9v5SlCl67S60 sIHdpZHRoPSIzMCUiIHZhbG bmgn8joF5gSi9+RUErvHW7e KP5fF0l ZqGgOrF0JGktP621IdBtdDM vBmsin5gkg0kufQe6EvWyIL YtsoGmvGeoBKK3k8GqVx40J 2NvbGdy i6QyFvo1fk38iHVfn1J3lPZ 8N4HcKNZpwgtgcQWkxJkdKI 3kCQRxqhtbRUWhxG7tNXHnL 1e1UzMf QjJ9IVkbM8FgqoD9LAMgyNK dMSRzeOETeG3ptweaf3hfuf djZaKnIOWtFXw9ZSv3SCKid WduOiBs CMZ3XfC3FER2qZKonW6ucYv ktsbfzR5tSxo+PWm5h3kzlO XpGO8qnFS1VO29NG52aQCib 4G1lOD3 V3CxFANpbmrgmfsztYM2UOG tLIBtiP67Ha0gqPtcNi9fPT RnWVA9KZHizWExJ5SuiR1pI iAjMDAw GSKrF4WiyXZxORzlH127YZx mFyP4TPYgrbHwJ5DyVFJnhB wvSdI4l1H3Ah5IXA85PU75N N62yAWw f0V8kDQ7Z7GsKDHpkoeztqj zgBM8YPNuGCWsuF68Xs0svS hyLv2iHNUcOPB4QCZdqKQzH 8VwbI4r ZiXrADYyVXInW3IjkJCpIOt zA963KLdkSpI9LEMlgzYkO0 TkFVRgmKibSyZ4z3U2Ux1AI y24XA53 CA46rFNvz1F3jII6N1StAPE vqqtsqtktaQE1FGXfJDMswQ 57Ih7xcZfiYe6aWQRrJYG4O FRpbWVz E0KnkO6nFoIzZNIpFDOyX6R sxIBiDHhcV591JHciAmO1KZ CtqhIjU9OoBRHliOumMfI0j 3L2Vt1J SWasydn6W1HcMbexnRR+PC9 7LRRyQC62iOIhmWBqt5ihxD b8FdIeTFXaVHS6hKpfWKbgw 3JkZXIt Y29 (more content not included)... [facility] Progesterone LCon 02-15-2024 Progesterone LC 18.8 ng/mL Invalid Interpretation Code [facility] Comment on above: Result Comment: Foll icular phase 0.1 - 0.9 Luteal phase 1.8 - 23.9 Ovulation phase 0.1 - 12.0 First trimester 11.0 - 44.3 Second trimester 25.4 - 83.3 Third trimester 58.7 - 214.0 Postmenopausal 0.0 - 0.1 Performed At: [facility] [id number] Sarah Beal PhD Ph:[phone] Performed By: #### 3 [id number] #### [facility] (DEFAULT) [address] [place] [address] Provider Orderson 02-14-2024 Provider Orders [id number]#1.00O TGTIFF [facility] Coding Summaryon 01-19-2024 Coding Summary HTMLBase 64 RmptppyrRQo9tXd+PGhlYWQ +WG9QBQCbH13uuFDsoK6wO5 NMTElOSywgQVBQTElOSyIgb eTkVV6rdLVjTPSs IC8+CL3iUCWxWsfmzVBij6Q 9eYL9J87aeh3hPLlkfYY6FR CsZwKsrxdgp6vzsAz3IRemL mluOyBt VRKflD89HLM2uC49Ae74rNQ zfMRel2ekxLx6QjBvWESpTR U1dErxRRldw0OxUJSeP86xx TZpu0P2 SJIikTrcwBEeImQhoOB6sK7 gRKpmkowxc9tuxeqfTvu4qp 09zDHgl1M9rUI0P4QcvoQ2A GJvbGQg FwgisSQVqT7svovke2jzesp cZcDpLIToHAj0BAo4OLOjsN feRdJlIF71JQY6KDCirvOlF 2FsLWFs sEhsVvO2l6K4Th9CO7SVOjl xB7WCBQDVXJsulIL+PC90cj 78F9JdSepqSmp3LVSwEJK1a KK8lL5i CBKuXKlpc1P3eJA4G8LncdT ias7ja9oaHCXyATtpT48faH Iab4L8NAVukGE2TUCwoKhgP iBzaG93 Oyc+BPLlhSlot3KcAkbsl5v kp7gvfLs6EgoiRCLdxoUovO mcWXK8r2TaSv7eWLBsfVU7z GO8dP3i KhGxXjS0RErtQ607SaMbuQH oVmnxK96hB8MpwAL+PHRyPj y1AYNjvHsdEP8pS5BvJDSas mctbGVm hDeeBY8fQQLhtnwjAPGxoQ1 zNVRxN5r4FdMzAwR0ENzzC1 PfHDDlzutaNh75rN5tCtXqK qN5PTta H7XdeeP6RFLbkXDcJGriQZY 1S85pi1U8VCAaQQKkDUU1pP S9pD4efGtbwrasyJIrcDuzk mVydGlj CYznYXubY694ANLqpPloQsZ vZGluZyBEYXRlOiAgMDUvMT YvMjAyNDwvdGQ+NKViRHU6g WxlPSAn aJFsOLnzKz9jvZbmjEccDU3 fIHIevitnCWKrsR7xIHSghV IezPgzYC6yEWJsgxcov557N iAxMHB0 THEjwPAsR3SmgK4iAiUeFQT yJDMeD0KiqDCqUAftA250UD rbCmT2BRNgiuZdN8AjDCXxu WduOiB0 o0O0Qk3Wz4LwidbgK0XyxWZ mKeVvDpzmRXi7L5LtItamqM I+JO21JGAyKW19GZm0IWI4u WxlPSdi KDRnZ0SyfR6xKfFxIVMxWLF kOyc+PHRhYmxlIHdpZHRoPS ruVWKaBtGywDjfXT0qSe7kT GVyLWNv wNigvNNrHkAoe9nkBFRvBXd xYP7tkCkxI5IplER2KQRca3 f0Jt68D17xN2LmxLW+PGNvb XW3nPR2 rM7nGjKwYkU2KRmiO608AsP wsROlOszne8ykl3ptsRd8Zv U7PJYkptWtkCuyRWT4q1AoD o54X22a IHdpZHRoPSIxNSUiIHZhbGl xux2ktM9hKi4+PYMzoHK3vU M1aY6jDgKiAaE5IBlkY665O nRvcCIv Kokpt7int6oqzMj5OtMcBFY dnrYubKruEUB4g9PkGz04E1 AqzNtte5AbIfz9wn12fCWjz 6O7fLN9 B0CvHOCyfvertCQkqXjhSS0 fUPQvdjspNZYuuD5eKLIoQ4 w2KaRgHgM2PZvzM3LhcpB1T GJvbGQg TQFqlLIEvE1bzdfje7pabfm nFfZeNNYgMFx0PIj4GJIjlB uzNuOfERW2WvZ0JAV5bEBeg F5hnFjn jajwuV3tVdl+AMQ5oTWqjYF GKJ2jGfxjnVG+PWQnVVU4sC ykQOfxQQRtlW4cHMTkV8p5Z iAwLjA1 IArxL4FflcE0JCHwaYCzOXI qyNZJkZ4anqxph8oecnfsQa QiENSyAAw6XAc7PIBjrVwwK iBsZWZ0 YnV7KBN1wWRurA9xxPvixsz kzA2yYip+OtsryKizZBP7OL s4Y8LtRzy2BQMbdEemEQ0bt GFkZGlu Wh2moKlihMjzLE2gHUDhvry hc178KyNap6hgXLYpcWLzSD uhIPN8L59jd6D6OYLgJKFpO JV4wUK7 eY7kuGcloetmlWAsvKqnqrA frZapVFrhHYitM723BDPmpZ bfXzGhZJb9X0IhDba6DJTdh GohXN7x uTRgHZxtTq8mqDhsmBylFA3 sIOVbkrtvr088VnVbx7moLJ BjnQGcUBhtIKI7U96os0N1Y CMwMDAw YUG1rVF4iO8wuHvahvpxjLU mdDsgdmVydGljYWwtYWxpZ2 93NGPvtMlyRxGpwSn5Z8OkC av1KKTx mSofUT7hsVWuYDewNb6ykAz jnLxnKO6sSJWvduzlr941Fa Qqu4crVQLilKHeDAlkSUC7Q 12pk2B8 EBJsHDYcGGB0lIM0kT1mwGc nbjogbGVmdDsgdmVydGljYW zoFByrH376MDEcpGcjKwOtj GllbnQg IScjKXs0D1GeHdjxiWW+PC9 0REXmQP57rKBveYIml3rwfX w2FhDcLOCjQEM4uKzpEGkdr 3JkZXIt C22kaZXts4J7XWZpcKskeGV yYmNguWG9uN2vONdxfbbjl8 vkhcoxAfxwl1kesi15mK94V 29sIHdp ZHRoPSIzMCUiIHZhbGlnbj0 riE6gGf0+LLLaeGY0lLB9mG 0wUMOlXuX1WDdhC631EaHms CIvPjxj n5koi3ehvRx2MuZ7LIRdqfG mcFpzHIN0w2NtHz49R18xVL dpZHRoPSIyMCUiIHZhbGlnb u3sbU8n Ii8+DDHceZR5tJW5iV3uWyN jNuK7RKnmZ162VjKqoYIfQj coL28vO3MtvHD+RVRjOvj3C CBzdHls LO9efEHiUQhnRe2qTAD2CyS tOzCoYCccY8NuAMKxalhxnw mbfSQ1WHBuBPHogQ02El5hv DogMTBw zYOGcB2zzyiet0hlegbtBmA jPXPaYNf9FGb0PODmdEgbXz SdXYP7IwL8QWL7fOVwpX3kv Glnbjog bW0uN0SnSMUerfmsIy12sX9 fLtOzUsT5XZlsVcx+Q1JBV0 ZPUkQsIEJSRUFOTkUgTUlDS EVMTEU8 B9YoNbz9MHBtkRfbDM9weBS mDOokCk1czTzraAdbDV3kAT LcabnqPEWdyX2pRRVloSQxh BmgZO8o LGZgnitad629HoXfKLV8RIO veLXzJ7MxiR0iLmXaABYzVT CcL4XqyDMvSGsdS140FYbrR pZ6BLMd gtTmN3ThNFCmlEyaYaJ6q5F 5Wl7bIp7tJE0rRWv8KB74QU 49wBViw1S9pRH9I2DdMHPsg mctcmln aPF9PQYgFCWmxY53gQQlNRs qSd7zg7X0n530YSBnAKQjdG 73Dc9ceMpmZSSguZHBmG2cs ilsg4ts czicIeYwQKYkBIo7HDf7NTF gxHwuFsOrBLI7XaS9FWM0yG QitX8anIwgjoqafX2pFjl+M jUgWWVh ndQ4U2DjRcf2JMLuaBtgXR6 hhRYeJCcvUz7riOhpiVypKT 4dAHMzvnefDKQtxT4wXKWwx HRvbTog BO5jOFVisjkuv816RmHaRVM 8OOOgfDRbX3FibU9dIbQeKV GgVYIwT3OcuCEvEApeC605H GxlZnQ7 HBGcnfEpJ0MgQYHvySlxStT 7s1W7Ba0HCA0LUVM6Z3XpTa q3RBBujNdnWV6heSFkTJtfA k3kwHtq wQbyXO8kREYpafqsQERevK1 vLKGtjUJgnMevTB2jYVRhje rar625VsKdMTW1JWKwuDOwB 2RuxK9i LgTwZEXkIOJhP7IraLSsWRq yH988PCekWeO2LKRsjzXwN9 CjROHvyQdgLkV3d7O5Lz9BJ DwvdGQ+ JF86jg56I1TbJjyoLuf5WRC jKIF1kVY8nD8iXRIbMAgrc1 H3wEB3X6MypjKyff4pn8zzF XBzZTog C28ssVDqz5G9NAOehRX2ZIN dbRtdNwXzxM86Sty+PGNvbG gpd4XjVylnm3ral6zfhGu0V jMwJSIg jlBsqWaeSET5r4ZkLw15Q78 sIHdpZHRoPSIzMCUiIHZhbG dpgc8quR3eEz7+LLHcyXD2g AY7sY1i NmNnIoX6CTihX681QfMbdNZ gLpoow8hhj4yfiWu7GpZoEP EzgqOkqXjzHNR9x4OaIe61Y 2NvbGdy x5QsDfr9xq38uUJxj8L7qYX 7E4EoUWDwhgwazOCzdQhnTI 8uIMJbltjzGVOlzL7gCJCaR 4j9ViIk EyX4DNqqY3LnsbQ4JEOdvYH jZVNgtAODyU6vwjblx3edyd iiXqVbFLAcWMq5FEq2ZVUof WduOiBs TXZ8CcU7PBY1bVRlxO4vuZk wcwxrjK2sSyo+JSr3k9nwnN QvLI8kaGD7EE98KX84mUGsi 2T7hTF6 H7PpRPPdpxluvubpzIK1DYY nBCXtcL24Vt6ilUzlEc4oZF XmSGC7UBOeoUFyL3VzsZ7iV iAjMDAw ERPmH1OwmROcXYetU206AFp tTqJ6WZDhnpTnJ6UoEKOdgN xgLlJ8h3K9Bs9IJE89EU74D G03uIHh k9U8sAY6K9UcSCMmfbuzfbo hgWF3UQCkYIAdiA25Ho3fnA wnCh5xAFLrCVO3UVQaxIReN 4BckO4k UnKkDQIiUSRtG8DhzYSqKAe cL562IWvkDzZ6LWDyacJsJ7 OgTZAvqLqiQzH4t9X3Ii5CT j70MA46 PS49sUCsw5W7kKJ8S8IgXSQ gduawglxtmWC9NZNvTNIgyB 76Cc1imTyeLm7lYCTvDAX3W FRpbWVz T6IazZ7yUsEuOUCvIUWoS4D uhTIcPEvjL582KHiiPyR0KS MlpgIwM7MoISIoeAiqQbT6g 3J9Cp9R SPgfyyp4C3DgEmwggQZ+PC9 6YTJsZY77fAEuwORoa3ukyF u4OiBnISHrOTF3hKusXMwrf 3JkZXIt Y29 (more content not included)... [facility] Progesterone LCon 01-18-2024 Progesterone LC 14.5 ng/mL Invalid Interpretation Code [facility] Comment on above: Result Comment: Foll icular phase 0.1 - 0.9 Luteal phase 1.8 - 23.9 Ovulation phase 0.1 - 12.0 First trimester 11.0 - 44.3 Second trimester 25.4 - 83.3 Third trimester 58.7 - 214.0 Postmenopausal 0.0 - 0.1 Performed At: [facility] [id number] Sarah Beal PhD Ph:[id number] Performed By: #### 3 [id number] #### [facility] (DEFAULT) [address] [place] [address] Provider Orderson 01-17-2024 Provider Orders [id number] [id number]#1.00 OTGTIFF [facility] Coding Summaryon 12-21-2023 [facility] AexagnhcTBe6vJi+PGhlYWQ +TT7VBWZpQ77peNJfnM4iA2 NMTElOSywgQVBQTElOSyIgb zIoHI3ksXAnBGVf IC8+RK1qUDYeXcqhpUNfq5Z 1dUN6R49vfp8vBZnwmRH6NE NmHjAoauayd0xsmZj1JVtqW mluOyBt OKAopG09QHS7cJ01Wd64pQI alEFlm8paoCk5KvWoIHWwBG I0zHwyFNksg3OrGNDlG52ue KSfv9I0 USKuvMgkiYCfFnYekTE8wL9 kTZnptkllm9lpqhleGfu5fg 73kKTlg8B4hSP6R3YuwhB6Y GJvbGQg BmuezVWXxR8qdbgpk0fpjnz pCyPuIDXfTMu0FZs6AYEboR ioQgJoFV75GGI8OIBucbIjY 2FsLWFs tLaxUnE3r3H3Ca9GJ1KMJra bI0VHHIMIDOqxzAN+PC90cj 17Q2KfLjigCle2YPTxYSY6c WD6eE4e PEFgEDfbi2N8uEH9L4FxksB dex5hr7urNVCfBBuyJ16snX Bca0Z3KQHjsOP1EYXhcBrqE iBzaG93 Oyc+TLRhxYutc3OpRjneu1p ga1ruhPe1KovyAMHttpAydH hhJHD6s8IiLw9jVCMojFU0v ZK4hT3z RjAyTfT7MJswJ899UdInqAV qLajpI50pX5SybYA+PHRyPj c6CJZmkFnwUN6yN1JvGNFuv mctbGVm bRgmAC3vILSjfgxuTBPkhN8 vYFXoA4v6PsRjElK0FNxcV0 XsJAMoylpuHe30kD3vLgYrW jB2ZTgj K4ShfrR0TQTbfJGbLBkqXRF 9Q88bh1Q7RIStMDTkQVC7bF Y0rY3nuMgztdzznZZcbMgbv mVydGlj BJcfPGzjR170XXCkaKdgVtP vZGluZyBEYXRlOiAgMDQvMT cvMjAyNDwvdGQ+SFXrXRR7l WxlPSAn cKQqAPsmQx4ebSunsJebTH3 pPFBpqgrnREBbtN7kZPVshY VrbDvtAZ6fZWUhzkjtr111S iAxMHB0 PJShwLCtP1FfoT4fFsUkJCQ fGPYaW6FsiGJxIByyY321TG rdCwT6EYFpldClH5QdTHAws WduOiB0 m8F9Up9Xl0QwlwfiW0BkvIH sZuUoBhskGQo1S0DiHeyujH I+UJ13GTRxPC39TJy2XTW4s WxlPSdi XHTwS7QcmU1zIrSzRSEaONE kOyc+PHRhYmxlIHdpZHRoPS gsNRVtMmVboFspRZ7uJa9wY GVyLWNv jUnkqMTiXyZsg6tpFYEiHRy kYA3cwShjM5PhcRL8CILec9 g0Sk36B70pB6BudMD+PGNvb KY5xQB1 rO8uKgUcZxL5CHrsF700PdW hdPQsViipk3tnn6tsaTf2Dl N5RSGyroZufAbfWPK0a6PqO z88R02i IHdpZHRoPSIxNSUiIHZhbGl vms8jeX7jNl3+DRKrlMQ3dW Z2eK7qRgLzBeX0AHpbM297C nRvcCIv Bbuac5jkv9kzaWa8YgZvSSI monLocDpbKSG7w1ChQv57Z7 TrcJnyc9NvTnr3gv45hQOyt 1D1vKL3 X4NnSHSxateixKLbxMyaPE4 wJTHilxedCEPdnJ8bQLObF5 a9KpEbFrN2DBfgX3UjwsY3H GJvbGQg AEZmuLJWoC8zzlqic4gtwvg tIuKnMRPqSQv2WWa0WTDgzA hkApRyYPH9EjJ8MKC3iCIbp L7fhAmd ojjnkF6xDps+BJP3hFIwhYN MBN6xPjghnYH+KKLqJUV3kZ tiADweNVZisS0rPRBxI0a2D iAwLjA1 GZgoX8QvthJ8PBPgdTMxNHG uiDOUjZ4unfsua6tsrjlpLs CiIZXvCFi6OWt3KSVafOxeN iBsZWZ0 AhH4UXR3cPQvhU1tmQsicpc ewC1dNgz+IajhiJsaUQI0IL z5L1JgCxa6LBEdzDfkRF2gw GFkZGlu Ea9tfPwjwQrjFI1aBFRgcaj fx416EmOog2etEQUiuDVtCX ooJYV3C76mo9J9JMVmPHTlH VA6lET4 yC3juXynqkbheCYchUnwpcY oxDmpTCftOWcfC923YZBtiT pjFyWiAAp8D3QhDff9ACKud WjlIX6g sRLnHMpfSh3kqYsfwXrlGD1 kRZYindyyd706PjCxc3gvIH UboNIqPXfkBTR2V68gb8B4V CMwMDAw ZEL5hAF3xA2ddZfrufzctFJ mdDsgdmVydGljYWwtYWxpZ2 48WRWecJnhSfOxbVc4Y7EuU bp3YZRk vScwUC7xcYHtPQzgVi3lhDm juVkyWV0rOYIixiden880Xb Amf1sfCMYysFMpUGmpUSI4D 06xe9K2 SWYeGGJmRXG2sHD0iI5cgUr nbjogbGVmdDsgdmVydGljYW cqTZqiX581AOIdhLbjQbKuc GllbnQg PHgbRRg3O7PyAwngmIV+PC9 1ZEOyAH44oVXynWPod9nsvU k7UtLwYRJqQWQ6eVbwDFtqr 3JkZXIt E12ziRJps3A7NHCxmUbskDA wZzHpuXO7pA8uLAmjyblwv0 fmormxVrdmn4difs97nT21R 29sIHdp ZHRoPSIzMCUiIHZhbGlnbj0 grZ0cXx5+MMBwdHE7eWW0xD 2tFNCoHsV9UZjkX590BsGuw CIvPjxj e2gjj9oqrEp9VgR4PVVratE xcXijDAJ5t0MpEn28K03wHV dpZHRoPSIyMCUiIHZhbGlnb u4iaJ6d Ii8+AERcsWA8mIB6dJ5yEnT oPrU4PYqbL764StJxrJHqLz njZ87fO6KfzDK+AMRbIbd6X CBzdHls ST9yaGMhXNsdNs9wTKN0ZfY xCjWzQLhiA3ItLDXqyrtbdc uhcXB1WKTkPOXlrK47Lg8cw DogMTBw uYINkI8xlkfvk0pczaxiFhL vEUFgXRv6MDi2JGTzzCdoEr UlVMF0QnX3LZA5yELwuW6uk Glnbjog dR8kN9RqTIYlukhkLi97bG7 tLnMaVbD1PYmdEdu+Q1JBV0 ZPUkQsIEJSRUFOTkUgTUlDS EVMTEU8 O2DcXzq6OZZciZinEU3qoHA nXXikXi9oaGxtrGizAO9eRC JedpefRMOevA8mIBRnpEIac FxmCF9u UZXupnxnl925DyGxBBU1FFE cqXTnF2CykX0zOfGrUZVaKC SqB9AzxSRdHFzkP732QDznA eU4XQTl ztOuK0PcJTRypDjyJgB3i6I 5Ga4zLr9gUM1sSHh8TT45QN 94mUEkz8C9qHV8U3HjXDXhy mctcmln mPK3GCNzJQUvfH22tXYmWNd xZr1lx2J6m245GHQcISLqrX 92Og1exLyiXQPqiNAJeC2ym sppp6vf xwuiVxYnIAAdMEe0ZXj0TBA nuGeyFbIuFHK8GvK1VFL1jO YpnS6mvGndlhrkfG2qSyg+M jUgWWVh vvQ7Z2MsFqn5ISVkgEdaOB7 zxFKwHDclSc1ozIlvkJvsDR 3lKCZdinbcPUFueM3qXACxh HRvbTog ZH1hHUJulroiy158YjWrDMY 1YKShwOPzC3KbqF1gEeOpSQ MpAOEmA4HfsHWfXXktL877C GxlZnQ7 LOCvceHdU7RgLSWheMabHnX 3z3G0Ho5SXP6IYNJ9J1XkGt j9UJIlwBkqMY3agDZvFZnoN e6roJzy xWoxJU2gVIHezwqkIATtqB1 zMPHgwUPqrEfpKE5zROUagi big452BxDkPOD8XPHflSGnX 4VyyE0d EsRqQDMrGOZeJ1SwrNWjKNz oO390DOdfCkH9OMKmkpQwW4 FoDZNsuEslTuW9v5O7Ty1NH DwvdGQ+ ZS52yk26L5WnCggpJpa5FXJ wWVV2jOV7oP3sOMXjHCnlx0 J7jNI9S3ZgmwEiek4nc1ysE XBzZTog S67amRNne8X3DRPubSR9XQF thGhwNhHulJ27Atq+PGNvbG mwk5GqQwrnx1kwp1ikqGc9W jMwJSIg qeAxgHwfYLF0o4GtPg76S00 sIHdpZHRoPSIzMCUiIHZhbG gldd2lgA9aPj3+ZDAptIF1e IF6bZ5z GkQlUsT8DLoyA444NnYndBU hWckcj1wzr1elpEr2HlDxWZ PhhpSwdGfzZNQ9s1XqUy07N 2NvbGdy f8IkYla2vd95kTTyu5H0qOF 1Z0HjRIXtweqsoLJuhJdkTG 7wFPEleqnoGHGepQ7pOAZdN 1g6LdPg FgZ9ADyiZ8IildZ3XVNnxOF mGPAgyJUCjV1hmmhqg9ojkp qcAcHpQLWzKVt6YBy4ZFPmv WduOiBs YPN4ItU3AIL7qGKkbY3siZd hzvdezP5eBxj+EFp8p7lkpH JjFJ4lxNO3JB71QY74wRRus 8R0fQN7 U3FkWXCwqwknpqwlnXP9XYU gJHXnbJ75Ry3exChxRw9tIH ReFPF0ZDDyyJWjL2FntX9pO iAjMDAw TAMfM3FrzZVuAVfrS548BOp bZxU6GRBjjlSqD5LdOYQjbM dmIwX8h4O1Kj9PZZ08JZ36L H90zQNf z3D8eIW6C1FyCTGktviwrsz ihDI7GPAmZSOoyN85Mu3fzM yrJh9yISLvNDZ7EOJrpDDhL 6AwgI8s TlVmXAHfAOLaX6WziFBqZAm gH880GUohJoX7TCOyatKqN3 GrQWFldWjyHiT9j3J6Bv5RH q09YS24 YP21wQEqt2F5mNY8E5YuVTT lkmqgxqjyyFU6NEHaICLznC 79Ta3ruQgxZg6oKXZxYAP6J FRpbWVz P0IhxY4cHmKxELNcZVGaP6J nlBEfGHyfV761OIrfBiS8TO NblbAgI1MfUTQhjZreToZ0d 4R1Pu9A XQiuzkg1Z3FyZzujuSG+PC9 5NVEeBW75kSUfnXXrm3nuqN b7AsWxVRIxKCL8sLajDFyii 3JkZXIt Y29 (more content not included)... Normal [facility] Progesterone LCon 12-17-2023 Progesterone LC 9.6 ng/mL Invalid Interpretation Code [facility] Comment on above: Result Comment: Foll icular phase 0.1 - 0.9 Luteal phase 1.8 - 23.9 Ovulation phase 0.1 - 12.0 First trimester 11.0 - 44.3 Second trimester 25.4 - 83.3 Third trimester 58.7 - 214.0 Postmenopausal 0.0 - 0.1 Performed At: [facility] [address] [place], [place] [id number] Sarah Beal PhD Ph:[phone] Performed By: #### [id number] ####[facility] ([facility])[address] [place] [address] Provider Orderson 12-16-2023 Provider Orders [id number]#1.00O TGTIFF Normal [facility] Coding Summaryon 11-24-2023 Coding Summary HTMLBase 64 SdhzdxckZWu2iYf+PGhlYWQ +XT4KRJJpN97miPVkoX3vR4 NMTElOSywgQVBQTElOSyIgb lJyST0twJEiYYHf IC8+PY9iYNAkEmvxiJNdt9V 6nAI9G65swf1cWQiosAA4RK PcRvWrxssol4enbVv7WInjI mluOyBt SEYvxX61CPU6nO28Kv41vCG rvQZyd5zukTy9VdPjNWHwFU W8sPvuDQofd4WgULLzP12wh HDys5X0 GYUvnWanmUGoJoQjwAY7mR1 cVBhmpmmzo0ppmgmaYrh0fm 92sHUbj3V1xEI0P9WxcpH7Q GJvbGQg IhageGQQwX8eiliww7wswqi eOrZyZOUfOSd7PKn5BIGucS ylIxQnNL15GWU1TLBgwrKuE 2FsLWFs cBtvXyM7y2M8Ed8TZ0AHBjc cJ9CXMWDPTQqkpWH+PC90cj 08M5LySkczXbn9TBGiWSM9s CU4zJ4e WMXeNTqip7C5mTF6P1YprdS mkh6dt1olWNDdMLseC84doV Mpt5K1XJJmdQN8ZSCaxFrrB iBzaG93 Oyc+EBHwxWhcu5FyRxanf8c uk8iigGo7HmfjSITkulAzaM prEQH8b6DfWz4dPNKizKE1t DB2xX9l NxUxIaP6YTgiP027FgGubME fNwmuJ80gE8PflDW+PHRyPj r5NBAtuSjjNA7zI9OeUHQah mctbGVm yTetTR2zTCVauebaMDEdcD1 qEKIfE0d7EcHuTxY0GAfcF2 MdQMMbbnqaHl97sC0xIgInB lO1LRrx S2JbkqO1CRTwuQKvISdbSGF 7K54mx2T9MFQrUPVgVOY8pE P8qP0agNmaxvihcZGmkUlaf mVydGlj AYnyTWpjM599RKHlnRpvNiH vZGluZyBEYXRlOiAgMDMvMj EvMjAyNDwvdGQ+ZAXtXDC8m WxlPSAn bULbOYciWf7zdKxjhPccJQ0 aLXSybxhpZGDxdY8sFOTgrE OneTkyHK4qFCImzvvui352F iAxMHB0 ANFgcLMlF7LhgX2nAyMmCHX rKRLgM2VmtLJqVGvuT809NZ zfKxM0QKArjaSkV7PtPQZjl WduOiB0 q0R7Tz3Xh5DouljrS7PtuWU sMtQrQfexLNl2L7PsAfufnV I+VN10SQNwTD03PLk0TJQ6g WxlPSdi ZEOuF2XbsI4aRsGhSKArCOO kOyc+PHRhYmxlIHdpZHRoPS nvUKDpSrCapKhnTU6uPr1pJ GVyLWNv tQqhtBMpQjLsw1dcFKWiFTy lFN6nnKgcV3CbcVX1GDNuj4 z5Bp93Q19oM1AnxOW+PGNvb MO0zFZ4 hD5zVuXvRxT3HUobU134EqX kaVCcBjstj4bbs2pagMl2Cw S3YUYqjvOokIxkKMW1k7YaH z64P57i IHdpZHRoPSIxNSUiIHZhbGl dik7fpQ0tVa6+OOYdqAT5nR C3iK3cEaCiSbZ0WAlbO632Q nRvcCIv Cyssy8sif8eksCo5VgXzIBB jgdAgqZsgAUQ0f5BxLt06J5 XbwNxtd1CmZfl9lb93lFVvv 4D8jWF4 P2GfNHShhizbjZQaeZouCB6 sUEKhcdrpOMSrgE8lCXKoJ7 x7KfJsIzH2WEvyN5EpzwZ4N GJvbGQg QQOenUCRqG7etiywi4lpttf nRpTaGOSwARr9PZf7HGMieO ahSeZcJVK7IvM0JWW9gPEzy G6lrPmy bwasoU8zKot+CUU1jLSexTB OBU8uWeppnVC+IOVkNBJ7uE scKFutFUAtfC7mZPHrU9o1B iAwLjA1 TQokE8DbpiJ3TNRyxDTzCJB jzUQUxY4iorpvi5szitwbXl KoCSOqKNd3LZr6QBQjmNpeN iBsZWZ0 LyM2QWH9eOVobP1vtZqogjb xkD4eGdx+KkinyXpmDFQ7OF f1D3BuAzb6MALhgBvdLR2ov GFkZGlu Ig5itAllcMlqYY8vLIDdzyb dl686UvDps2tfKRCduONlIA gaIEA8S25pm5O6ZMDsQSGtW SH4gMI3 hK1rvFcleofwjVDrgSsqqlS zxAweVKdbNYnrB256FWOnzX bpKrHfYPt2Y3AjAcd5FCJsv LtoSQ0i zLZoZAxoAz7hlGxjuTuuLH6 nTLRbuwyul330OxQkh8hiWD VamREvKEvdLMD3Z63fj1G6F CMwMDAw KHT3kUV4hI3kgCvzjesicIV mdDsgdmVydGljYWwtYWxpZ2 95KCJhkGftHaCotHt5H9ThF rl5IRRw dMroTU6gtRMtCWaeEz0wnQz osGujXO6aWWKbreiqj782Pd Swm9dqSTUfhTCjOMzmTEM2F 60cu5S4 JQWlWMLdEDR2iCF0mE8beKg nbjogbGVmdDsgdmVydGljYW xwLQooZ951YJDyyAxeJtLon GllbnQg HIyeJRf8I2YxOzagwAV+PC9 5WESpLG21vCUdcFKal3kouD y4BnEaLPHcMRA9qUddJCtwy 3JkZXIt R24kiSPnq1Z1QZBbtSjtuFW xJoTczCP3uS4xMYygcabre9 uungprCpyvu9jgfk04sK46M 29sIHdp ZHRoPSIzMCUiIHZhbGlnbj0 dsQ4cIx5+UJHpmPR2kGT7kO 6uEYXaMqF9FMcyL573KoCim CIvPjxj y6jdk6zvgMy2OsQ0UDEvaaM icKxkHOK1g8PhEh92Z40yVR dpZHRoPSIyMCUiIHZhbGlnb u1zjD2w Ii8+LTGwcTW0iGG9dN5gChY wFwA7YMmwI335XaVjiWOjLc vtE01gJ5WqqFZ+HECdObn6A CBzdHls TY2jjMWyVQibNg3gMUL9MtF gQmDaVQxdN3RmFGSnwwknfe urzIH1ZGNwQADiiX13Ut2cb DogMTBw aHYCkY4lwrhcv3utuqwhWfJ cIPMjOPq2ZHy3IIKfeFhkBq MaXMK9HhK5PUJ1xTFadM3at Glnbjog oW9eC3BnISZncdymEx30dW2 jPkQgPjO0FLkzCyx+Q1JBV0 ZPUkQsIEJSRUFOTkUgTUlDS EVMTEU8 M1IhAbt7CRJcjFbfNI5eqNU jUDodEi8ejVpfjShyXV7lTT AakodiLHDsvN5lIRSrgRMpv RcmCA1v LLWsbdwpn446WhPhANJ5HVH qiQGwB1NxsI9oFgCvECQiDO TgQ0MumNYvJLseD892YLfiV lO1BSCm unHmJ6MyPYXonFbdVeG6b7D 7Rx9lTg1hIB8jGFh0BT63PK 91kUTnw6F6aXU3H2MkLFTyb mctcmln tMY1IIAhVQFaaS91vWFrYMi lQj9sg5O7q940LVTwPMVyqG 55Ht7foTohTTHvyCPMgU7og qdof0cf zdoaFhOtURLhURf0TPv9RNB pnJxsScRoEDG6YpC5CLX3hC IfgP2ntHtmmuqozF0bByr+M jUgWWVh jrH3O2JeVei2EIMzcSavBR0 zwHPwVHepCj6tlBdzpUlfJA 5sGFRhyvdrHJHsrE9fZGYya HRvbTog AB9qKXPowxcgi346LbWmUIQ 3QHOreUSxU2AgtO2sHkOaUI ItITIbH1GvqPSaJYlyY564Q GxlZnQ7 LIWblvRdN2VgYZYlxFkySmH 3t8X9Dd3MHC2GADI8I4HnGa s5EWJkySnxAV8liZIqJLqwD w1wkUcz tGaoNG7eSPNsnovyPBFsnE1 oLGXleETynXhcTD7dPAPmra gcc075AcIlZTB3XPCoyXMlX 4LwvK4e MyIyZHMbPXTmF3LsiSTfCBk aQ343NEsuYrK6KLJdqeLrZ9 FnJQOvlUsgPsJ7o8O5Tt1Xq ALzZ6Rs G1l8V7KdIwonhAB+DI42GTJ qWC04eEKzxDOsm9asxQm1Yh OgUCYwBYL0eUjzLIzhy1InK URsB84g hKLga9Y2JUHawTicfTZcUsA waHN3wN7fRSwzqcisv3mwiq miCmjty6qmem33oT07M61sY HdpZHRo EEEoCELxTCSnyLtnrj5uhN5 wIi8+ZWJacOP1cDZ0gD5kGn DzToV8NZzoF828MaYwbGJfP hsgi2oh x7gxtEj9UoSdFESjmrTlwTf xJEN3z5WdXt75D71jKHjnKO SvJLMwPIIqADHiaBjvgg7os G9wIi8+ MC2id6hhbi31qL31nVF+PHR jYAC6pPqfMOnkDRZdnI1aPT szWlT0OYGuGvHysK90uDWfC UcuNy4u uIunrJwgAD5jNSSmyydeo40 1LgDsx5mlMBBqjONpWXezZV P8V95bh9G2PHXxSUFpCHP9r XV4jT6g bGlnbjogbGVmdDsgdmVydGl hPLnlUGejT591NTFehTpwVs WiyRIeR4lgohFHZX4uPjgco GQ+PHRk JOY6sGkyPPofKHVlfQ4rQGB gB3t1ZsMuAwX6PEtpD8Aewr B9DRNsmYPpRXUugXYXdW8oz cone9dz qzltFpDlZFOgAJw3FWd9ISQ xdQoiJzJuRIG6WqE0SDD7kR GsbL6ggFhhoxjgnX6bVeh+R klOOjwv dGQ+RQVkPUH1yYrcACapRXO tmY0oFLVsJ8z6QjNcAlO8HQ hdH0GsryI3LCDjxSOnKFCcz BZXwT5i ebcwe2oklejrBzOpCBWfXHc 6VMw8GMMfmEzuSpKsJYO2Sb N2RWN8mSEmwR5dxPokesazs G9wOyc+ TVJOOjwvdGQ+DIIrWAC4tPt vWUexQUJyuD8oVAYfG1c2Hg SdCqM0JTeyJ7OlscY9CHEkn GQgMTBw lWPSfA9lpkndj2qoitrzEjF dKCUdVOy5PXu7MMYlzUvyIk RoXSI9GbI6EHH1bLRhbN5ss Glnbjog zD8cEer+GFF4AYY0LX44MC7 0A6RnBskyyTWoqHP+PHRhYm xlIHdpZHRoPScxMDAlJyBzd QpcOX8v Ym9 (more content not included)... Normal [facility] ED Clinical Summaryon 2023 ED Clinical Summary [facility] - Emergency Department [address] [place] [address] [id number] ED Clinical Summary PERSON INFORMATION Name: SHERLY ASTUDILLO Age: 23 Years Sex: FEMALE : 2000 MRN: Acct#: Visit Reason: Laceration of finger; LEFT INDEX FINGER CUT Arrival: 11/19/2023 09:14:04 Discharge: 11/19/2023 10:10:00 LOS: 000 00:56 Check In: 11/19/2023 09:14:04 Checkout:11/19/2023 10:10:00 Address: [address] [place] [id number] PCP: Anthony Gomez MD PROVIDER INFORMATION Provider [...] indicated that she was using a box loader. She used a sharp knife, and accidentally [...] History Medical history: Resolved Ankle fracture, left ([id number]): Resolved. 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 Surgical history: Cholecystectomy ([id number])., Reviewed as documented in chart. Family history: [...] Alcohol Use: Current Comment: Denies - 11/19/2023 09:Marisela Morfin RN Employment/School 10/28/2021 [...] Substance use: Current Comment: Denies - 11/19/2023 09:Marisela Morfin RN Tobacco 09/01/2021 Smoking tobacco use: Former [...] Polycystic ovaria (more content not included)... Normal [facility] ED Note - Physicianon 2023 ED [...] indicated that she was using a box loader. She used a sharp knife, and accidentally [...] History Medical history: Resolved Ankle fracture, left ([id number]): Resolved. Ankle impingement syndrome (293714006): Resolved., Reviewed as documented in chart. Surgical history: Cholecystectomy ([id number])., Reviewed as documented in chart. Family history: [...] and orient (more content not included)... Normal [facility] ED Note-Nursingon 11-19-2023 ED Note-Nursing Pt ambulatory back t o ED rm 6. Pt C/O Left index finger laceration. Pt states she was trying to open a box and cut the finger with a box loader. The wound on the index finger is a straight line of 4cm with a width of 0.2cm. States last tetanus was more than 5 years ago. Pt is A/Ox4. Normal [facility] ED Patient Summaryon 024 ED Patient Summary [facility] - Emergency Department [address] [place] [address] PATIENT DISCHARGE INSTRUCTIONS Patient Information Name: SHERLY ASTUDILLO Age: 23 Years Date of : 2000 Reason For Visit: Laceration of finger; LEFT INDEX FINGER CUT Arrival Time: 11/19/2023 09:14:04 Primary Care Physician: Anthony Gomez MD Attending Physician: Sreedhar Cheney MD Comment: Visit Diagnosis: Diagnoses This Visit Laceration of finger ([id number]) Laceration of left index finger (S61.211A) The Pharmacy at [facility] is open Tuesday through Tuesday [...] alcohol and/or drug addiction problems; contact the [facility] 28/03 Crisis Hotline -Text 2RNOI ui [phone]. If you received any narcotics, sedation, or [...] legal documents With: Address: When: Anthony Gomez [address] [place], [place] [id number] Business (1) Within 5 to 7 days [...] and treatment you received today in the [facility] Emergency Department were for an urgent problem and are not intended as complete care. It is important for you to follow up with a doctor, nurse practitioner, or physician?s diploma dental assistant for ongoing care. If your symptoms [...] so we can reach you if necessary. [facility] Emergency Department has provided you with a complete list of medications post discharge. Please inform your pathologist assistant/provider of your visit and for further instruction [...] better healing. Unl (more content not included)... [facility] 01-04-2022 L --- Specimen: [id number] Received: 01/05/22 Status: QUOC Garber Num: [id number] Spec Type: Surgical Subm Dr: Rodney Lema MD Tissues: A Skin-Other than Cyst, tag, debridement or plastic repair (SCALP) Procedures: HE Stain/5, Gross/Micro L4 Patient Age/Sex Location Account Attending Physician Sherly Astudillo / [facility] [id number] Rodney Lema MD SPEC NUM: [id number] RECD: 01/05/22 STATUS: QUOC GARBER NUM: [id number] JANE: 01/04/2245 [facility] DR: Rodney Lema MD ENTERED: 01/05/22 [facility] DR: Dea,Lab SPEC TYPE: Surgical DEPT: MAG [...] of Fixative: 10% Neutral Buffered Formalin (ESTELA/YJ) Specimen: [id number] Received: 01/05/22 Status: QUOC Garber Num: [id number] Spec Type: Surgical Subm Dr: Rodney Lema MD Tissues: A Skin-Other than Cyst, tag, debridement or plastic repair (SCALP) Procedures: HE Stain/5, Gross/Micro L4 Patient: Sherly Astudillo [id number] (Continued) Specimen: [id number] Received: 01/05/22 (Continued) Signed (signature on file) Debora Cintron MD 01/07/22 0930 Specimen: [id number] Received: 01/05/22 Status: QUOC Garber Num: [id number] Spec Type: Surgical Subm Dr: Rodney Lema MD Tissues: A Skin-Other than Cyst, tag, debridement or plastic repair (SCALP) Procedures: HE Stain/5, Gross/Micro L4 Patient: Sherly Astudillo [id number] (Continued) Specimen: [id number] Received: 01/05/22 (Continued) Microscopic Description Six glass slides with H E stained material and two IHC stained slides have been examined. The microscopic findings support the above pathologic diagnosis. ANALYTE SPECIFIC REAGENT (ASR) DISCLAIMER: The use of one or more reagents in the above tests is regulated as an analyte specific reagent (ASR). The performance characteristics were determined by the [facility]. Immunohistochemistry assays have not been validated on decalcified tissue. Results should be interpreted with caution given the possibility of false negative results on decalcified specimens. They have not been cleared by the [place] Food and Drug Administration. The FDA has determined that such clearance or approval is not necessary. CPT Codes 31606, 66947, 10380 Specimen: [id number] Received: 01/05/22 Status: QUOC Garber Num: [id number] Spec Type: Surgical Subm Dr: Rodney Lema MD Tissues: A Skin-Other than Cyst, tag, debridement or plastic repair (SCALP) Procedures: JASWINDER Stain/5, Gross/Micro L4 Patient: Sherly Astudillo [id number] (Continued) Signed (signature on file) Debora Muller (more content not included)... [facility] Cytology Cervical or vaginal smear or scraping studyon 12-26-2019 [facility] Vital Signs Date Time Vital Sign Value Performing Clinician Rick todd 11-06-2024 08:46-0500 Body mass index (BMI) [Ratio] 44.01 kg/m2 Emily TALBERT Work Phone: [facility] 11-06-2024 08:46-0500 Body weight 127.46 kg Emily TALBERT Work Phone: [facility] 11-06-2024 08:46-0500 Diastolic blood pressure 76 mm[Hg] Emily TALBERT Work Phone: [facility] 11-06-2024 08:46-0500 Systolic blood pressure 128 mm[Hg] Emily TALBERT Work Phone: [facility] 10-22-2024 14:46-0500 Body mass index (BMI) [Ratio] 43.04 kg/m2 Cole Celeste DO Work Phone: [facility] 10-22-2024 14:46-0500 Body weight 124.65 kg Cole Celeste DO Work Phone: [facility] 10-22-2024 14:46-0500 Diastolic blood pressure 70 mm[Hg] Cole Celeste DO Work Phone: [facility] 10-22-2024 14:46-0500 Systolic blood pressure 116 mm[Hg] Cole Celeste DO Work Phone: [facility] 10-08-2024 13:57-0500 Body mass index (BMI) [Ratio] 42.15 kg/m2 Emily TALBERT Work Phone: [facility] 10-08-2024 13:57-0500 Body weight 122.07 kg Emily TALBERT Work Phone: [facility] 10-08-2024 13:57-0500 Diastolic blood pressure 82 mm[Hg] Emily TALBERT Work Phone: [facility] 10-08-2024 13:57-0500 Systolic blood pressure 122 mm[Hg] Emily TALBERT Work Phone: [facility] 09-10-2024 14:35-0500 Body mass index (BMI) [Ratio] 40.94 kg/m2 Cole Celeste DO Work Phone: [facility] 09-10-2024 14:35-0500 Body weight 118.57 kg Cole Celeste DO Work Phone: [facility] 09-10-2024 14:35-0500 Diastolic blood pressure 76 mm[Hg] Cole Celeste DO Work Phone: [facility] 09-10-2024 14:35-0500 Systolic blood pressure 118 mm[Hg] Cole Celeste DO Work Phone: [facility] 08-08-2024 11:09-0500 Body mass index (BMI) [Ratio] 39.37 kg/m2 Cole Celeste DO Work Phone: [facility] 08-08-2024 11:09-0500 Body weight 114.03 kg Cole Celeste DO Work Phone: [facility] 08-08-2024 11:09-0500 Diastolic blood pressure 72 mm[Hg] Cole Celeste DO Work Phone: [facility] 08-08-2024 11:09-0500 Systolic blood pressure 120 mm[Hg] Cole Celeste DO Work Phone: [facility] 07-10-2024 10:45-0500 Body mass index (BMI) [Ratio] 38.37 kg/m2 Cole Celeste DO Work Phone: [facility] 07-10-2024 10:45-0500 Body weight 111.13 kg Cole Celeste DO Work Phone: [facility] 07-10-2024 10:45-0500 Diastolic blood pressure 74 mm[Hg] Cole Celeste DO Work Phone: [facility] 07-10-2024 10:45-0500 Systolic blood pressure 118 mm[Hg] Cole Celeste DO Work Phone: [facility] 06-07-2024 13:09-0400 Body mass index (BMI) [Ratio] 38.53 kg/m2 Nom Nurse [facility] 06-07-2024 13:09-0400 Body weight 111.58 kg Nom Nurse [facility] 06-07-2024 13:09-0400 Diastolic blood pressure 72 mm[Hg] Nom Nurse [facility] 06-07-2024 13:09-0400 Systolic blood pressure 116 mm[Hg] Nom Nurse [facility] 05-08-2024 11:32-0400 Body height 170.2 cm Cole Celeste DO Work Phone: [facility] 05-08-2024 11:32-0400 Body mass index (BMI) [Ratio] 39.16 kg/m2 Cole Celeste DO Work Phone: [facility] 05-08-2024 11:32-0400 Body weight 113.4 kg Cole Celeste DO Work Phone: [facility] 05-08-2024 11:32-0400 Diastolic blood pressure 80 mm[Hg] Cole Celeste DO Work Phone: [facility] 05-08-2024 11:32-0400 Systolic blood pressure 124 mm[Hg] Cole Celeste DO Work Phone: [facility] 10-06-2023 08:53-0500 Body height 170.2 cm Cole Celeste DO Work Phone: [facility] 10-06-2023 08:53-0500 Body mass index (BMI) [Ratio] 38.28 kg/m2 Cole Celeste DO Work Phone: [facility] 10-06-2023 08:53-0500 Body weight 110.86 kg Cole Celeste DO Work Phone: [facility] 10-06-2023 08:53-0500 Diastolic blood pressure 72 mm[Hg] Cole Celeste DO Work Phone: [facility] 10-06-2023 08:53-0500 Systolic blood pressure 120 mm[Hg] [...] Available Start: 10-25-2024 ambulatory Anthony Gomez Facility: [facility] Start: 10-24-2024 End: 10-24-2024 Clinisync Result Encounter Emily TALBERT Work Phone: [facility] Unsolicited Start: 10-24-2024 End: 10-24-2024 Clinisync Result Encounter Emily TALBERT Work Phone: [facility] Unsolicited Start: 10-24-2024 End: 10-24-2024 ambulatory [facility] Start: 10-22-2024 End: 10-22-2024 Office outpatient [...] Start: 10-18-2024 End: 10-18-2024 [facility] Start: 10-15-2024 End: 10-15-2024 Chart abstracting Scanning Provider External [facility] [place] Start: 10-08-2024 End: 10-08-2024 Bamboo flowsheet Emily TALBERT Work Phone: [facility] Start: 10-08-2024 End: 10-08-2024 Bamboo flowsheet Emily Lundy PA Work Phone: [facility] Start: 10-08-2024 End: 10-08-2024 Office outpatient visit 15 minutes Emily TALBERT Work Phone: [facility] Comment on above: Third trimester preg maicol; 26 weeks gestation of ; Diabetes mellitus screening Start: 10-08-2024 End: 10-08-2024 ambulatory EMILY LUNDY Not Available Start: 10-06-[address] [facility] Facility: [facility] Start: 09-24-[address] [facility] Facility: [facility] Start: 09-10-2024 End: 09-10-2024 Clinisync Result [...] 08-08-2024 End: 08-15-2024 External Result Encounter Emily Medranosarah TALBERT Work Phone: [facility] External Department Unsolicited [...] Not Available Start: 07-05-2024 End: 07-05-2024 ambulatory Anthony Gomez Facility:[facility] Start: 07-04-2024 End: 07-04-2024 Clinisync Result Encounter Cole Celeste DO Work Phone: [facility] External Department Unsolicited Start: 07-04-2024 End: 07-04-2024 Clinisync Result Encounter Cole Celeste DO Work Phone: [facility] External [facility] Unsolicited Start: 06-07-2024 End: 06-07-2024 ambulatory [facility] Celeste Nurse [facility] Comment on above: GA: 8w6d Start: 06-01-2024 End: 06-01-2024 ambulatory Anthony Gomez Facility[facility] Start: 05-28-2024 End: 05-28-2024 Emergency department patient visit Evonne Cheung Facility:[facility] Start: 05-28-2024 End: 05-28-2024 ambulatory Spenser Tellez PAC Facility:[facility] Start: 05-08-2024 End: 05-08-2024 Bamboo flowsheet [...] encounter procedure Kenya Richter DDS Work Phone: [facility] Comment on above: Abnormal tooth erupt ion (Primary Dx); Impacted third molar tooth Start: 04-24-2024 ambulatory KENYA RICHTER Facili ty:[facility] Start: 03-14-2024 End: 03-14-2024 ambulatory COLE R CELESTE Facility:[facility] Start: 02-14-2024 End: 02-14-2024 [facility] Start: 01-17-2024 End: 01-17-[address] [facility] Facility:[facility] Start: 12-16-2023 End: 12-16-[address] [facility] Facility:[facility] Start: 11-19-2023 End: 11-19-2023 Emergency department patient visit [facility] Facility:[facility] Start: 10-06-2023 End: 10-06-2023 Office outpatient [...] Cole Celeste DO Work Phone: Start: 09-10-2024 [facility] DRUG SCREEN RAPI D (URINE) Cole [...] AM EDT Routine [facility] [address] [place] [id number] Cole Alonso, [address] [place] [address] [facility] Start: 11-06-2024 End: 11-06-2025 Measurement of glucose 1 hour after glucose challenge for glucose tolerance test Glucose tolerance, 1 hour Lab Routine Diabetes mellitus screening Expected: 11/06/2024 (Approximate), Expires: 11/06/2025 [facility] Comment on above: Expected: 11/06/2024 (Approximate), Expires: 11/06/2025 Start: 11-06-2024 End: 11-06-2025 US biophysical profile w non stress test US biophysical profile w non stress test Imaging Routine Excessive growth affecting management of in third trimester, single or unspecified fetus Expected: 11/06/2024 (Approximate), Expires: 11/06/2025 [facility] Work Phone: Comment on above: [...] unspecified fetus Expected: 10/22/2024 (Approximate), Expires: 10/22/2025 [facility] Work Phone: Comment on above: Expected: 10/22/2024 (Approximate), Expires: 10/22/2025 Start: 10-18-2024 End: 10-18-2024 Patient encounter procedure 10/18/2024 1:00 PM EST Appointment [facility] [address] [place] [id number] [facility] Start: 10-08-2024 End: 10-08-2025 CBC panel - [...] PM EST Routine [facility] [address] [place] [id number] Cole Alonso DO [address] [place], [place] [id number] [place] [address] [facility] Start: 09-10-2024 End: 09-10-2024 Professional / ancillary services management 09/10/2024 1:00 PM EST Ancillary Procedure [facility] [address] [id number] [facility] Start: 08-08-2024 End: 02-06-2025 Alpha fetoprotein, maternal Alpha fetoprotein, maternal Lab Routine Second trimester 17 weeks gestation of Expected: 08/08/2024 (Approximate), Expires: 02/06/2025 [facility] Comment on above: Expected: 08/08/2024 (Approximate), Expires: 02/06/2025 Start: 08-08-2024 End: 08-08-2025 Measurement of glucose 3 hours after glucose challenge for glucose tolerance test Glucose tolerance, 3 hours Lab Routine Elevated glucose tolerance test Expected: 08/08/2024 (Approximate), Expires: 08/08/2025 [facility] [...] mellitus screening Expected: 07/10/2024 (Approximate), Expires: 07/10/2025 [facility] Work Phone: Comment on above: Expected: 07/10/2024 (Approximate), Expires: 07/10/2025 Start: 07-10-2024 End: 07-10-2024 Patient encounter procedure [facility] Comment on above: Arrived Start: 07-04-2024 End: 07-04-2024 Patient encounter procedure 07/04/2024 3:00 PM EDT Office Visit [facility] [address] [place] [id number] Kenya Richter, DDS [address] [place] [id number] [facility] Start: 06-07-2024 End: 06-07-2025 ABO/Rh ABO/Rh Lab Routine Missed menses , unspecified gestational age Expected: 06/07/2024 (Approximate), Expires: 06/07/2025 [facility] Comment on above: Expected: 06/07/2024 (Approximate), Expires: 06/07/2025 Start: 06-07-2024 End: 06-07-2025 Blood type and Indirect antibody screen panel - Blood Type and screen Lab Routine Missed menses , unspecified gestational age Expected: 06/07/2024 (Approximate), Expires: 06/07/2025 [facility] Work Phone: Comment on above: Expected: 06/07/2024 (Approximate), Expires: 06/07/2025 Start: 06-07-2024 End: 06-07-2025 Drugs of abuse panel - Urine by Screen method Rapid drug screen, urine Lab Routine , unspecified gestational age Encounter for supervision of normal first in first trimester Expected: 06/07/2024 (Approximate), Expires: 06/07/2025 [facility] Comment on above: Expected: 06/07/2024 (Approximate), Expires: 06/07/2025 Start: 06-07-2024 End: 06-07-2025 US Pelvis transvaginal US OB transvaginal Imaging Routine Missed menses Expected: 06/07/2024 (Approximate), Expires: 06/07/2025 [facility] Comment on above: Expected: 06/07/2024 (Approximate), Expires: 06/07/2025 Start: 06-07-2024 End: 06-07-2024 ambulatory 06/07/2024 1:00 PM EDT Initial [facility] [address] [place] [address] [facility] Start: 06-07-2024 End: 06-07-2024 Professional / ancillary services management 06/07/2024 12:30 PM EDT Ancillary Procedure [facility] [address] [place] [address] [facility] Start: 06-05-2024 Influenza vaccination Influenza Vacc ine (#1) [facility] Start: 05-08-2024 End: 05-08-2024 Patient encounter procedure 05/08/2024 11:20 AM EDT Office Visit [facility] [address] [id number] Cole Alonso, DO [address] [place] [address] Arrived [facility] Comment on above: Arrived Start: 05-06-2024 Influenza vaccination P [facility] Start: 11-03-2023 End: 11-03-2023 Patient encounter procedure 11/03/2023 8:30 AM EST Office Visit [facility] [address] [id number] Cole Alonso, DO [address] [place] [address] [facility] Start: 10-17-2023 End: 10-17-2023 Professional / ancillary services management 10/17/2023 8:30 AM EST Ancillary Procedure [facility] [address] [place] [id number] [facility] Start: 05-06-2023 COVID-19 Vaccine ( season) COVID-19 Vaccine ( season) [facility] Start: 2019 Screening for malign ant neoplasm of cervix Pap Smear [facility] Start: 2017 DTaP,Tdap and Td Vaccines (1 - Tdap) DTaP,Tdap and Td Vaccines (1 - Tdap) [facility] Start: 2017 Hepatitis A (HAV) Vaccine (optional start 19+ years) Hepatitis A (HAV) Vaccine (optional start 19+ years) [facility] Start: 2017 Hepatitis B vaccination Hepati tis B (HBV) Vaccine (1 of 3 - 19+ 3-dose series) [facility] Start: 2016 Adult BMI Screening Adult BMI Screen ing [facility] Start: 07-01-2016 Hepatitis C screening Hepatitis C An tibody [facility] Start: 2016 Tetanus + diphtheria + acellular pertussis vaccine (product) Tdap Booster [facility] Start: 2013 Vaccination for volodymyr n papillomavirus HPV Vaccine (1 - 3-dose series) [facility] Start: 2010 Depression Screening Depression Scre ening [facility] Start: 2010 Tobacco Screening Tobacco Screening [facility] Antimullerian hormon e (AMH) Antimullerian hormone (AMH) Lab Routine Irregular periods/menstrual cycles Ordered: 10/06/2023 [facility] Comment on above: Ordered: 10/06/2023 Bacteria identified in Urine by Culture Urine culture Microbiology Routine Missed menses Ordered: 06/07/2024 [facility] Comment on above: Ordered: 06/07/2024 CBC W Auto Different ial panel - Blood CBC and differential Lab Routine PCOS (polycystic ovarian syndrome) Ordered: 10/06/2023 [facility] Comment on above: Ordered: 10/06/2023 CBC W Auto Different ial panel - Blood CBC and differential Lab Routine Missed menses , unspecified gestational age Ordered: 06/07/2024 [facility] Comment on above: Ordered: 06/07/2024 CHLAMYDIA TRACHOMATI S (GENITO/STI) CHLAMYDIA TRACHOMATIS (GENITO/STI) Lab Routine STD exposure Ordered: 08/08/2024 [facility] Comment on above: Ordered: 08/08/2024 Cytology Cervical or vaginal smear or scraping study Pap Smear Pathology and Cytology Routine Well woman exam with routine gynecological exam Ordered: 08/08/2024 [facility] Comment on above: Ordered: 08/08/2024 DHEA DHEA Lab Routine PCOS (polycystic ovarian syndrome) Ordered: 10/06/2023 [facility] Comment on above: Ordered: 10/06/2023 DHEA-sulfate DHEA-sulfate Lab Routine PCOS (polycystic ovarian syndrome) Ordered: 10/06/2023 [facility] Comment on above: Ordered: 10/06/2023 Follicle stimulating hormone Follicle stimulating hormone Lab Routine PCOS (polycystic ovarian syndrome) Ordered: 10/06/2023 [facility] Comment on above: Ordered: 10/06/2023 hCG, quantitative, hCG, quantitative, Lab Routine PCOS (polycystic ovarian syndrome) Ordered: 10/06/2023 [facility] Work Phone: Comment on above: Ordered: 10/06/2023 Hemoglobin A1c measurement Hemoglobin A1c Lab Routine Irregular periods/menstrual cycles Ordered: 10/06/2023 [facility] Comment on above: Ordered: 10/06/2023 Hemoglobin A1c/Hemoglobin.total in Blood Hemoglobin A1c Lab Routine Missed menses , unspecified gestational age Ordered: 06/07/2024 [facility] Comment on above: Ordered: 06/07/2024 Hepatitis B virus surface Ag [Presence] in Serum or Plasma by Immunoassay Hepatitis B surface antigen Lab Routine Missed menses , unspecified gestational age Ordered: 06/07/2024 [facility] Comment on above: Ordered: 06/07/2024 Hepatitis C virus Ab [Presence] in Serum or Plasma by Immunoassay Hepatitis C antibody Lab Routine Missed menses , unspecified gestational age Ordered: 06/07/2024 [facility] Comment on above: Ordered: 06/07/2024 HIV-1/HIV-2 antigen/antibody combination immunoassay HIV-1 and HIV-2 antibodies Lab Routine Missed menses , unspecified gestational age Ordered: 06/07/2024 [facility] Comment on above: Ordered: 06/07/2024 Luteinizing hormone Luteinizing hormone Lab Routine PCOS (polycystic ovarian syndrome) Ordered: 10/06/2023 [facility] Comment on above: Ordered: 10/06/2023 Neisseria gonorrhoea e DNA [Presence] in Unspecified specimen by ISHA with probe detection Neisseria gonorrhea DNA probe, direct Lab Routine STD exposure Ordered: 08/08/2024 [facility] Comment on above: Ordered: 08/08/2024 Reagin Ab [Presence] in Serum by RPR RPR Lab Routine Missed menses , unspecified gestational age Ordered: 06/07/2024 [facility] Comment on above: Ordered: 06/07/2024 Rubella antibody, IgG Rubella an tibody, IgG Lab Routine Missed menses , unspecified gestational age Ordered: 06/07/2024 [facility] Comment on above: Ordered: 06/07/2024 SURESWAB(R) ADVANCED VAGINITIS PLUS, TMA SURESWAB(R) ADVANCED VAGINITIS PLUS, TMA Pathology and Cytology Routine Vaginal discharge Ordered: 08/08/2024 [facility] Work Phone: Comment on above: Ordered: 08/08/2024 Thyrotropin [Units/volume] in Serum or Plasma TSH Lab Routine PCOS (polycystic ovarian syndrome) Ordered: 10/06/2023 [facility] Comment on above: Ordered: 10/06/2023 Thyroxine (T4) free [Mass/volume] in Serum or Plasma T4, free Lab Routine PCOS (polycystic ovarian syndrome) Ordered: 10/06/2023 [facility] Comment on above: Ordered: 10/06/2023 US for US PELVIS-TRANS VAG IF INDICATED Imaging Routine PCOS (polycystic ovarian syndrome) Ordered: 10/06/2023 [facility] Comment on above: Ordered: 10/06/2023 Immunizations Immunization Date Immunization Notes Care Provider Shaina marley 06-12-2020 influenza virus vacc ine, unspecified formulation Cole Alonso DO Work Phone: [facility] Payers Date Payer Category Payer Medicaid [id number] 2022 Medicaid [id number] 1998 Unknown [id number] 2.16. [id number] 1998 Unknown [id number] 2.16. 840.1.956167.3.579.2.1286 1998 Unknown [id number] 2.16.84 0.1.108352.3.579.2.9 1998 Unknown [id number] 2.16.84 0.1.999021.3.579.2.9 1998 Unknown [id number] 2.16.84 0.1.285176.3.579.2.9 1998 Unknown [id number] 2.16.84 0.1.760515.3.579.2.1258 1998 Unknown [id number] 2.16.84 0.1.581190.3.579.2.9 1998 Unknown [id number] 2.16.84 0.1.615997.3.579.2.1258 1998 Unknown [id number] 2.16.84 0.1.989017.3.579.2.1259 1998 Unknown [id number] 2.16.84 0.1.085610.3.579.2.1259 1998 Unknown [id number] 2.16.84 0.1.400357.3.579.2.9 1998 Unknown [id number] 2.16.8 40.1.725380.3.579.2. 1998 Unknown [id number] 2.16.8 40.1.071440.3.579.2. 1998 Unknown [id number] 2.16.8 40.1.861720.3.579.2. 1998 Unknown [id number] 2.16.8 40.1.420628.3.579.2. 1998 Unknown [id number] 2.16.8 40.1.326067.3.579.2. 1998 Unknown [id number] 2.16.8 40.1.133964.3.579.2. 1998 Unknown [id number] 2.16.8 40.1.036242.3.579.2. 1998 Unknown [id number] 2.16.8 40.1.185692.3.579.2. 1998 Unknown [id number] 2.16.8 40.1.949511.3.579.2. 1998 Unknown [id number] 2.16.8 40.1.695744.3.579.2. 1998 Unknown [id number] 2.16.8 40.1.688259.3.579.2. 1998 Unknown [id number] 2.16.8 40.1.305792.3.579.2.8 Social History Date Type Detail Facility Start: 09-15-2023 End: 05-08-2024 Tobacco smoking status WAIS Ex-smoker [facility] History of tobacco use Current smoker [facility] History of tobacco use Cigarette Smoker [facility] Start: 10-06-2023 End: 11-06-2024 Alcohol intake Lifetime non-drinker (finding) [facility] Start: 09-15-2023 End: 05-08-2024 History of Social function [facility] Start: 09-15-2023 End: 05-08-2024 Tobacco use panel [facility] Start: 09-15-2023 Alcohol Comment caffeine: 1-2 cups per day [facility] Start: 2000 Sex Assigned At Not on file N [facility] Tobacco smoking stat [facility] Tobacco smoking consumption unknown [facility] Start: 05-08-2024 End: 10-15-2024 Tobacco use and exposure Smokeless tobacco non-user [facility] Start: 04-20-2024 [facility] Start: 10-15-2024 Alcoholic beverage intake Ex-drinker (finding) [facility] Childcare Unknown [facility] Start: 12-03-2019 Sex Female (finding) [facility] Clinical Notes 10-06-2023 to 11-06-2024 NITISH Rojas - 11/06/2024 8:50 AM Lin Latham, [employer] - 10/22/2024 2:50 PM NITISH Gee - 10/08/2024 1:30 PM Lin Latham, [employer] - 09/10/2024 2:00 PM EST Note Date [...] of: NITISH Rojas documented in this encounter [facility] 10-24-2024 Note [facility] Note Reason for cardiology [...] mouth in the morning., Disp: , Rfl: [id number] ACID-OM3 ORAL, Take by mouth., Disp: , [...] 4 to 6 weeks Angel Luis Evans MD,[facility] 10-22-2024 History of Present illness [...] nursing note reviewed. Exam conducted with a composition siding worker present. Vitals: Estimated body mass index is [...] NST/BPP to have started. Orders sent to [facility] Scheduling and [facility]. Hospital to reach out to patient to schedule. Patient to return to clinic in 2 weeks for routine OIB appointment. Documented by Rose Latham LPN on behalf of: Cole Alonso DO documented in this encounter [facility] 10-08-2024 History of Present illness Narrative Reason for Appointment: Patient ID: Sherly Astudillo is a 24 y.o. female who presents for Routine Visit Patient presents today for Return OB appointment. MEDICATIONS Current Outpatient Medications Medication Instructions clotrimazole (Mycelex) 10 MG jacob 1 lozenge(s), Oral, 5x/Day, x 10 day(s), # 50 lozenge(s), 0 Refill(s), 10/16/24 8:59:00 AM 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, Pharmacy: [facility] [id number], 1 lozenge(s) Oral 5x/Day,x10 day(s), 170.18, cm, [...] of: NITISH Rojas documented in this encounter [facility] 10-06-2024 Note Patient Education Ma terials Follows: [...] Follow these instructions at home: ? Take rsyu-ewr-tuktiol and prescription medicines only as told by [...] provider. Document Revised: 11/30/2021 Document Reviewed: 11/30/2021 [employer] Patient Education ? 2023 [employer] Infectious Disease Oral Thrush, Adult Oral [...] difficulty fighting infection (more content not included)... [facility] 09-24-2024 Note Patient Education Ma terials [...] these instructions at home: Medicines ? Take phqn-nhv-mudsdav and prescription medicines only as told by [...] and water are not available, use hand senior actuarial analyst. ? Do not touch your eyes, nose, [...] may represent a (more content not included)... [facility] 09-10-2024 History of Present illness Narrative [...] nursing note reviewed. Exam conducted with a composition siding worker present. Vitals: Estimated body mass index is [...] Cole Alonso DO documented in this encounter [facility] 08-08-2024 History of Present illness Narrative Reason [...] Cole Alonso DO documented in this encounter [facility] 07-10-2024 History of Present illness Narrative Reason [...] nursing note reviewed. Exam conducted with a composition siding worker present. Vitals: Estimated body mass index is [...] or undercooked meat, and stay away from [facility]. Patient has been consulted regarding any [...] Cole Alonso DO documented in this encounter [facility] 07-05-2024 Note Patient Education Ma terials Follows:and [...] and use condoms. General instructions ? Take gxbv-kjw-uqijrip and prescription medicines only as told by [...] provider. Document Revised: 02/19/2021 Document Reviewed: 02/19/2021 [employer] Patient Education ? [email or web address] History of Present illness Narrative Reason [...] both done at the same time at [facility] at 10 weeks . Pt desires zofran due to nausea in this . Follow Up: Patient is to have labs drawn at directed and return to office for initial OB appointment with provider. Patient may call office as needed with any concerns or questions. Nurse Visit Completed by: Bernadette Reeder MA documented in this encounter [facility] 05-28-2024 Note Education Materials Orthopedics Muscle Strain [...] not too tight. General instructions ? Take kdod-ljr-vpaebja and prescription medicines only as told by [...] provider. Document Revised: 11/09/2021 Document Reviewed: 11/09/2021 [employer] Patient Education ? 2023 [email or web address]. Sciatica Sciatica is pain, weakness, tingling, or [...] (pelvis). ? . (more content not included)... [facility] 05-28-2024 Note Patient Education Ma terials Follows: [facility] 05-08-2024 History of Present illness Narrative [...] Cole Alonso DO documented in this encounter [facility] 04-24-2024 History of Present illness Narrative Images from the original note were not included. documented in this encounter [facility] 11-19-2023 Note Education Materials Caregiving Sterile [...] and water are not available, use hand senior actuarial analyst. ? Change your dressing as told by [...] these instructions at home: Medicines ? Take kntg-eag-ufzckit and prescription medicines only as told by [...] C. This informatio (more content not included)... [facility] 10-06-2023 History of Present illness Narrative [...] nursing note reviewed. Exam conducted with a composition siding worker present. Vitals: Estimated body mass index is [...] PCOS/insulin resistance and medication was sent to [facility] in [place]. Documented by Rose Latham LPN on behalf [...] encounter [facility] Purpose Family History No [...] Impacted third molar tooth Kenya Richter, DDS [address] [place] [address] Referral ID Status Reason Start Date Expiration Date V isits Requested Visits Authorized [id number] Pending Review 04/24/2024 04/24/2025 1 1 Scheduling [...] your procedure, you will be contacted with [id number] costs or next steps. All self-pay payments [...] the procedure: You also MUST have a driver/guide/escort >18yrs old present to take you home [...] section and content) DATE CREATED AUTHOR 01/08/2022 [facility] DATE CREATED AUTHOR AUTHOR'S ORGANIZ ATION 09/23/2024 [facility] DATE CREATED AUTHOR AUTHOR'S ORGANIZ ATION 10/20/2024 [facility] DATE CREATED AUTHOR AUTHOR'S ORGANIZ ATION 11/07/2024 [facility] dical Specialists [facility] DATE CREATED AUTHOR AUTHOR'S ORGANIZ ATION 11/08/2024 [facility] DATE CREATED AUTHOR AUTHOR'S ORGANIZ ATION 11/11/2024 [facility] Reason for Visit (unrecogniz ed section and content) Reason Comments Discuss cycles Reason Comments Amenorrhea Reason Comments Routine Visit Reason Comments Well Women Visit Routine Visit STI Screening Reason Comments Abdominal Pain Care Teams (unrecognized sec tion and content) Pharmaceutical Process Engineer Relationship Specialty Start Date End Date Anthony Gomez MD [address] [place] [phone] PCP - General Pediatrics 10/06/23 Pharmaceutical Process Engineer Relationship Specialty Start Date End Date Anthony Gomez MD [address] [place] [phone] PCP - General Pediatrics 10/06/23 Pharmaceutical Process Engineer Relationship Specialty Start Date End Date Anthony Gomez MD [address] [place] [phone] PCP - General Pediatrics 10/06/23 Pharmaceutical Process Engineer Relationship Specialty Start Date End Date Anthony Gomez MD [address] [place] [phone] PCP - General Pediatrics 10/06/23 Pharmaceutical Process Engineer Relationship Specialty Start Date End Date Anthony Gomez MD [address] [place] [phone] PCP - General Pediatrics 10/06/23 Pharmaceutical Process Engineer Relationship Specialty Start Date End Date Anthony Gomez MD [address] [place] [phone] PCP - General Pediatrics 10/06/23 Pharmaceutical Process Engineer Relationship Specialty Start Date End Date Anthony Gomez MD [address] [place] [phone] PCP - General Pediatrics 10/06/23 Pharmaceutical Process Engineer Relationship Specialty Start Date End Date Anthony Gomez MD [address] [place] [phone] PCP - General Pediatrics 10/06/23 Pharmaceutical Process Engineer Relationship Specialty Start Date End Date Anthony Gomez MD [address] [place] [phone] PCP - General Pediatrics 10/06/23 Pharmaceutical Process Engineer Relationship Specialty Start Date End Date Anthony Gomez MD [address] [place] [phone] PCP - General Pediatrics 10/06/23 Pharmaceutical Process Engineer Relationship Specialty Start Date End Date Anthony Gomez MD [address] [place], [place] [phone] PCP - General Pediatrics 10/06/23 Pharmaceutical Process Engineer Relationship Specialty Start Date End Date Anthony Gomez MD [address] [place] [phone] PCP - General Pediatrics 10/06/23 Pharmaceutical Process Engineer Relationship Specialty Start Date End Date Anthony Gomez MD [address] [place] [phone] PCP - General Pediatrics 10/06/23 FOR RECORDS [...] BE BASED ON THE PRIMARY CLINICAL RECORDS. [facility]. provides no warranty or guarantee of the accuracy or completeness of information in this document.
[2024-11-12 11:33] VITALS: BP 137/67; PULSE 107
== END 2024-11-12 11:55 | disposition home or self-care (01) ==
LOC: US 10:58 → FBC 11:05
PROVIDERS: PCP Family Medicine; Visit Provider Obstetrics & Gynecology
DX: O36.63X0 Maternal care for excessive fetal growth, third trimester, not applicable or unspecified (principal); Z3A.31 31 weeks gestation of pregnancy
CPT/HCPCS: 76818

== ENCOUNTER 2024-11-15 09:46 | Outpatient (OUT) | payer MEDICAID, SELFPAY ==
[2024-11-15 09:55] VITALS: BP 129/65; PULSE 88
--- OUTSIDE RECORDS SUMMARY | 2024-11-15 09:56 | XMS_ITS | CCD ---
Author Organization [facility] Care Team Providers Care Director Of Pupil Personnel Program Name Role Phone Radha Gomez MD Primary Care Provider [phone] Unavailable Primary Care Provider UnavailKENYA Gonzales Attending Unavailable PROVIDER, UNKNOWN Admitting Unavailable Unavailable Primary Care Provider Unavailbety ORTEZO, COLE R Referring Unavailable EMILY LUNDY Attending Unavailable CELESTE, COLE Attending Unavailable EMILY LUNDY Attending Unavailable CELESTE, COLE Attending Unavailable CELESTE, COLE Attending Unavailable CELESTE, COLE Attending Unavailable CELESTE, COLE Attending Unavailable ANGEL LUIS EVANS Attending Unavailable Cheung, Evonne L Admitting Unavailable Cheung, Evonne L Attending Unavailable Radha Gomez Primary Care Unavailable Radha Gomez Primary Care Unavailable CELESTE, COLE R Admitting Unavailable CELESTE, COLE R Attending Unavailable Radha Gomez Primary Care Unavailable CELESTE, COLE R Admitting Unavailable CELESTE, COLE R Attending Unavailable CELESTE, COLE R Attending Unavailable CELESTE, COLE R Admitting Unavailable Radha Gomez Primary Care Unavailable Radha Gomez Primary Care Unavailable CELESTE, COLE R Admitting Unavailable CELESTE, COLE R Attending Unavailable Radha Gomez Primary Care Unavailable Tellez PAC, Spenser Gallegos Admitting Unavailable Tellez PAC, Spenser Gallegos Attending Unavailable Radha Gomez Attending Unavailable Radha Gomze Primary Care Unavailable Tellez PAC, Spenser Gallegos Admitting Unavailable Tellez PAC, Spenser Gallegos Attending Unavailable Radha Gomez Primary Care Unavailable Radha Gomez Attending Unavailable Radha Gomez Primary Care Unavailable Radha Gomez Primary Care Unavailable Weininger, Larissa Y Admitting Unavailable Weininger, Larissa Y Attending Unavailable Radha Gomez Primary Care Unavailable Weininger, Larissa Y Admitting Unavailable Weininger, Larissa Y Attending Unavailable Radha Gomez Primary Care Unavailable Sreedhar Cheney Attending Unavailable Sreedhar Cheney Admitting Unavailable Allergies Allergy Classification Reported Allergen(s) Allergy Type Date of Onset Reaction(s) Facility (1 source) No Known Medication Allergies; Translations: [No Known Medication Allergies] Propensity to adverse reactions to drug (disorder) [facility] Repository Medications Current Medications Medication Drug [...] aspirin 81 mg delayed release oral tablet (3 sources) Platelet Aggregation Inhibitor, Nonsteroidal Anti-inflammatory Drug take 1 tablet by mouth in the morning aspirin 81 MG EC tablet Take 81 mg by mouth in the morning. Active ketoconazole 20 mg/ml topical cream (3 sources) Azole Antifungal Start: 10-25-2024 ketoconazole (NIZOral) [...] Active ondansetron 4 mg disintegrating oral tablet (14 sources) Serotonin-3 Receptor Antagonist Start: 06-07-2024 End: [...] 50 lozenge(s), 0 Refill(s), 10/16/24 8:59:00 AM ECHO VASCULAR TECHNOLOGIST, Pharmacy: [facility] [id number], 1 lozenge(s) Oral 5x/Day,x10 day(s), 170.18, cm, [...] Problem Classification Problem Date Documented Date Episodic/Chronic Cardiac dysrhythmias (2 sources) Tachycardia, unspecified; Translations: [...] Classification Problem Date Documented Da te Episodic/Chronic Administrative/social admission (20 sources) Patient encounter status; Translations: [Person consulting for explanation of examination or test findings] Onset: 11-03-2023 11-03-2023 Episodic Disorders of teeth and jaw (4 sources) Tooth eruption disorder; Translations: [Disturbances in tooth eruption] Onset: 04-24-2024 04-24-2024 Episodic Results Test Name Value Interpretation Reference Range Facility US OB BPP W NON-STRESS on 11-12-2024 [place] [address] Ultrasound Report Signed Patient: SHERLY ASTUDILLO MR#: [id number] : 2000 Acct:[id number] Age/Sex: 24 / F ADM Date: 11/12/24 Loc: US Attending Dr: Cole Alonso D.O. Ordering Physician: Cole Alonso D.O. Date of Service: 11/12/24 Procedure(s): US OB BPP w non-stress Accession Number(s): [id number] cc: RADHA GOMEZ ; Cole Alonso D.O. [facility] [place] [id number] Patient Name: SHERLY ASTUDILLO MRN: TBH:[id number] date: 2000 Sex: F Assigned Patient Location: US Current Patient Location: Accession/Order Number: [id number] Exam Date: 11/12/2024 13:57 Report Date: 11/12/2024 13:58 At the request of: COLE ALONSO DO Procedure: US OB BPP w non-stress BIOPHYSICAL PROFILE: CLINICAL INFORMATION: Excessive growth COMPARISON: Pelvic ultrasound 06/07/2024 There is a single live intrauterine gestation in breech presentation. The reported gestational age is 31 weeks 3 days. The heart rate [id number] beats per minute. FINDINGS: TONE: 1 or more episodes of activity extension and flexion of extremity or opening and closing of the hand [Y] 2/2 GROSS BODY MOVEMENTS: 3 or more discrete body or limb movements [Y] 2/2 BREATHING MOVEMENTS: 1 or more episodes of breathing lasting at least 30 seconds [Y] 2/2 JET: A single deepest vertical pocket of amniotic fluid greater than 2 cm [Y] 2/2 JET: 20.7 cm . This is in upper normal range. Total score: 8/8 US/US OB BPP w non-stress IMPRESSION: NORMAL BIOPHYSICAL PROFILE Impression dictated by: Bailey Beasley M.D.11/12/2024 1:58 PM Dictation Location: [place] [address] Electronically authenticated by: [id number] Y Date: 11/12/2024 13:58 Dictated By: Bailey Beasley M.D. Signed By: 11/12/24 1401 DD/ 1358 TD/TT: Fruit Vendor: [facility] Radiology, Radiologi MD juan carlos - 11/12/2024 [place] [address] Ultrasound Report Signed Patient: SHERLY ASTUDILLO MR#: [id number] : 2000 Acct:[id number] Age/Sex: 24 / F ADM Date: 11/12/24 Loc: US Attending Dr: Cole Alonso D.O. Ordering Physician: Cole Alonso D.O. Date of Service: 11/12/24 Procedure(s): US OB BPP w non-stress Accession Number(s): [id number] cc: RADHA GOMEZ ; Cole Alonso D.O. [facility] [place] [id number] Patient Name: SHERLY ASTUDILLO MRN: [facility]:[id number] date: 2000 Sex: F Assigned Patient Location: US Current Patient Location: Accession/Order Number: [id number] Exam Date: 11/12/2024 13:57 Report Date: 11/12/2024 13:58 At the request of: COLE ALONSO DO Procedure: US OB BPP w non-stress BIOPHYSICAL PROFILE: CLINICAL INFORMATION: Excessive growth COMPARISON: Pelvic ultrasound 06/07/2024 There is a single live intrauterine gestation in breech presentation. The reported gestational age is 31 weeks 3 days. The heart rate [id number] beats per minute. FINDINGS: TONE: 1 or more episodes of activity extension and flexion of extremity or opening and closing of the hand [Y] 2/2 GROSS BODY MOVEMENTS: 3 or more discrete body or limb movements [Y] 2/2 BREATHING MOVEMENTS: 1 or more episodes of breathing lasting at least 30 seconds [Y] 2/2 JET: A single deepest vertical pocket of amniotic fluid greater than 2 cm [Y] 2/2 JET: 20.7 cm . This is in upper normal range. Total score: 8/8 US/US OB BPP w non-stress IMPRESSION: NORMAL BIOPHYSICAL PROFILE Impression dictated by: Bailey Beasley M.D.11/12/2024 1:58 PM Dictation Location: [place] [address] Electronically authenticated by: [id number] Y Date: 11/12/2024 13:58 Dictated By: Bailey Beasley M.D. Signed By: 11/12/24 1401 DD/ 1358 TD/TT: Fruit Vendor: [facility] Radiology Study observation (narrative) [facility] OB BPP W NON-STRESS Ordered By: Radiologist Radiology on 11-12-2024 [facility] Work Phone: Outside Recordson 11-09-2024 Outside Records [id number] TGTIFF [facility] Urinalysis macro (dipstick) panel (U)on 11-06-2024 Bilirubin, UA Negative Negative - 4(70) +++ mg/dL [facility] Blood, UA Negative Negative - 50 Osvaldo/mcL [facility] Clarity, UA Clear [facility] Color, UA Yellow [facility] Glucose, UA Negative Negative - 1999(110) ++++ mg/dL [facility] Interpretation and review of laboratory results Normal [facility] Ketones, UA Negative Negative - 160(16) ++++ mg/dL [facility] Leukocytes, UA Negative Negative - 500+++ Edison/mcL [facility] Nitrite, UA Negative Negative - Positive [facility] pH, UA 6.5 5 - 9 [facility] Protein, UA Negative Negative - 1999(20) ++++ mg/dL [facility] Spec Grav, UA 1.02 1 - 1.03 [facility] Urobilinogen, UA 0.2 0.2 - 12 mg/dL [facility] Office/Clinic Noteon 025 Office/Clinic Note Patient: SHERLY ASTUDILLO Age: 24 years Sex: FEMALE : 2000 Associated Diagnoses: Tinea corporis; Tinea corporis; Eustachian tube dysfunction Author: Radha Gomez MD A History of Present Illness [...] 124.010 kg Body Mass Index 42.82 kg/m2 [place] Body Weight Calculated 61.6 kg BSA Measured [...] lesion. Impression and Plan Diagnosis Tinea corporis (RNL38-CY B35.4). Plan: Will treat with topical antifungal over the next 7 to 10 days.. Orders Orders Pharmacy: ketoconazole 2% topical cream (Prescribe): 1 zoran, Topical, Daily, for 10 day(s), 30 gm, 0 Refill(s). Orders Evaluation and Management: [id number] Office visit - established pt, Level 3 (Order): 10/25/2024 13:24 EST, Qty: 1, Tinea corporis - Eustachian tube dysfunction. Diagnosis Eustachian tube dysfunction (KTH09-ZX H69.90). Course: Discussed with patient most likely some fluid behind her ear. No evidence infection. Continue to just observe.. [Electronically Signed on: 10/25/2024 14:14 EST] Radha Gomez MD [Verified on: 10/25/2024 14:14 EST] Radha Gomez MD [facility] ALL CBC WITH AUTO DIFFon BASOPHILS ABSOLUTE AUTO 0 [facility] Basophils/100 WBC (Bld) 0.3 % 0.2 - 2.0 % [facility] Eosinophils/100 WBC (Bld) 2.1 % 0.9 - 7.0 % [facility] Erythrocyte distribution width (RBC) [Ratio] 14.3 % 11.0 - 15.0 % [facility] Hematocrit (Bld) [Volume fraction] 32.1 % Low 36.0 - 48.0 % [facility] Hemoglobin (Bld) [Mass/Vol] 10.5 g/dL Low 12.0 - 16.0 g/dL [facility] IMMATURE GRANULOCYTES ABS AUTO 0.34 High [facility] Immature granulocytes/100 WBC (Bld) 3.4 % High 0.0 - 0.5 % [facility] Interpretation and review of laboratory results Abnormal [facility] LYMPHOCYTES ABSOLUTE AUTO 2.4 [facility] Lymphocytes/100 WBC (Bld) 24 % 20.5 - 60.0 % [facility] MCH (RBC) [Entitic mass] 27.9 pg 26.7 - 34.[address] [facility] MCHC (RBC) [Mass/Vol] 32.7 g/dL 29.9 - 35.2 g/dL [facility] Healthcare MCV (RBC) [Entitic vol] 85.4 fL 81.0 - 99.0 fL [facility] Healthcare MONOCYTES ABSOLUTE AUTO 0.4 [facility] Monocytes/100 WBC (Bld) 4.2 % 1.7 - 12.0 % [facility] NEUTROPHILS ABSOLUTE AUTO 6.7 High [facility] Healthcare Neutrophils/100 WBC (Bld) 66 % 43.0 - 75.0 % [facility] Platelet mean volume (Bld) [Entitic vol] 9 fL Low 9.5 - 13.5 fL [facility] TBH EO # 0.2 [facility] Healthcare TBH PLT 332 [facility] TB RBC 3.76 Low [facility] Healthcare TB WBC 10.1 [facility] Healthcare [facility] Healthcare Office Visiton 10-24-2024 Follow-up visit [id number] Sherly Astudillo 2000 F Date Provider Department Center 10/24/2024 [id number] LUIS EVANS Family History Problem Relation Age of Onset Diabetes Mother Diabetes Maternal Grandmother Diabetes Maternal Grandfather Family Status - Relation Status Age at Mother Maternal Grandmother Maternal Grandfather Level of Service:64227 UT OFFICE/OUTPATIENT NEW MODERATE MDM 45 MINUTES Reason for Visit and Comments: Rapid Heart Rate [788148] - Episodes of tachycardia include lightheadedness and SOB. Denies chest pain. She says sometimes HR gets up to 160's with rest. Problem [805640] - Currently 28 weeks gestation. This is her 2nd . She denies having issues like this during first . Palpitations [268833] Shortness of Breath [103041] Dizziness [382027] Normal [facility] Urinalysis macro (dipstick) panel (U)on 10-22-2024 Bilirubin, UA Negative Negative - 4(70) +++ mg/dL [facility] Blood, UA Negative Negative - 50 Osvaldo/mcL [facility] Clarity, UA Clear [facility] Color, UA Yellow [facility] Glucose, UA Negative Negative - 1999(110) ++++ mg/dL [facility] Interpretation and review of laboratory results Normal [facility] Ketones, UA Negative Negative - 160(16) ++++ mg/dL [facility] Leukocytes, UA Negative Negative - 500+++ Edison/mcL [facility] Nitrite, UA Negative Negative - Positive [facility] pH, UA 7 5 - 9 [facility] Protein, UA Negative Negative - 2000(20) ++++ mg/dL [facility] Spec Grav, UA 1.015 1 - 1.03 [facility] Urobilinogen, UA 0.2 0.2 - 12 mg/dL [facility] Healthcare C Throaton 10-08-2024 C Throat Normal throat justine isolated No pathogens isolated Normal [facility] Comment on above: Performed By: #### [id number] ####[facility] (DEFAULT)[address] [place] [address] Coding Summaryon 10-08-2024 Coding Summary HTMLBase 64 PrwxjoswZZx0pBb+PGhlYWQ +GS3USSMgF12noQOxcQ6dN6 NMTElOSywgQVBQTElOSyIgb tCtSA6uvNOgNUEx IC8+EE4hNYRcNvjgtKAjf3M 7pPA9R50kgy5gFEtfsHY8XA HsErEfxnmli9lziWw3DMpuN mluOyBt OTVkkM31JCM3fY31Ox21vLF jvMCtz4konZu8GpFjPSKzYX V7sJblDGpio4TmSJWcC52zc EEiv9I9 DZGxtNmiwXQwRnMtmRY5xJ2 eUXfrnlhyt2fkhndbRcc6ml 98rKNoc4N9gHU7Z8YmxyE9Q GJvbGQg FbiimLJJeT2ilijsq6jjjje zEuGkFEHjQKm1DLp5ZUTbqJ raCtMcHH53WDJ1MWRsriDeT 2FsLWFs rZwtHvI7t3M7Ee0FC0ILFtl sS2ELCUXVYCqkbLJ+PC90cj 92Y6ApCcuyRbv6QWSpJLG8q WN6sQ9g VRTfZIbls4N7iBW6L1MnwvP sph8qw6zgYUUkXWkiC03jcY Ucv3X1CECouUL1BVTfoMkdF iBzaG93 Oyc+FRXexRarn6AgLzmvp7e jx2ahvXi2YksyCKQbhzJcyF ecFBC9b0WzAv2uHYMdzBE0b JJ6iR9o SaOwLeU0VJbhS181TiFxgQG aNokhK96bS1YcmFX+PHRyPj z4UFHxqKreVR8xH1ChNUUri mctbGVm dCfvVA2iVQBmzvypIGRalA0 eVMOuZ9y2AvNdYfN3RCbyM3 GyQPCqjcpjQc93wQ4vEqZgJ xN2CLlc P5NaakJ7FRJpcNEkGYrwYQP 7J49vq1L7QXPyNRXzXFV9rB X4mZ6zcAhllpohrUUhyVugk mVydGlj HPdbDSpfH256LNMlvQtoXiT vZGluZyBEYXRlOiAgMDIvMD MvMjAyNTwvdGQ+UQSvTID5d WxlPSAn jBEsQPrjEc5hxHhvtPomQO1 gZAMnxqmeFJEiyZ8nEBNvzI NqkSfwPD9aHCJetkble087I iAxMHB0 KQHmuIPtU0DuuI4iWtUrPPF qEQCsT5XggBLgGKpuW283QO fcLeJ5RVTsggPbC6WfLMCzx WduOiB0 a5P0Td2Dk4IzvludK5NcuVH nYoUjEalgBGe7K8QfOqljxX I+SP52JDGnUF77GTw6RSQ7x WxlPSdi SRMiY4PesH1hEsGqXINgIIN kOyc+PHRhYmxlIHdpZHRoPS doIJRlLuNlbUzcOY8uLd8dR GVyLWNv tDgnrAUnYtYxe4bdPQPxEPk hIY4ppXgmL2TnaDD8SXFru1 v4Ee59S45dZ4KenAY+PGNvb EX7cPR1 xL5qMvOzIyR5CNptH811CaN rlMToAzonk3elp5bapQi7Cy F2FXAqgtQmbSsgBXX6z6ZzS v11K81v IHdpZHRoPSIxNSUiIHZhbGl tdo5bbU9sYu3+RIYeeDR5mR P1vR4wUeKdGbM4UPwhR692V nRvcCIv Bxnmb7jyf9nctUx9CwBtYIE efdOfmTnrLCS6k8XiBw47O0 IgoAjkb3UnDef8lp21aSPwl 8U6aGG5 H0XhCCIlrblatSNbrMvpLV7 rASIwybqbGQUwoC0fLUOqC2 d4VqXvBtJ3KFnaJ8AfsnJ5L GJvbGQg UXMsbNCKtW2diigct9vnsua tIrBcAOBfZNz8ZXe5JMCbfJ jkEuGjZSN9OhR1ZET2jSCvy F0zmPgz dblftJ7lOpn+YKP8iXZwrDM MTL8gWtaltVB+AZFoCNU1qH ssDOuyTMTqoP6kOPEkD4q4J iAwLjA1 YZopF6UpteE4FOZxkMCtTLG jeJJEpX5oyjlkf5gmkncaPc WjLJQsJGz9PRw6AKWvoOotE iBsZWZ0 RzY0GWG3zLLxyC8chNacrwk qcD3uItd+BqjdiDvrIFB4SJ z2L7WkAhr4FDThrMuyMH4lw GFkZGlu Kx7mcJadlWvvPO0bEFAhfex xa330PqUbt1neBZTobHDxVB zuPZK4G11mt0I9JNOqRNIsC IV5wDD1 pG5xtWklfxvzgTAtwQsmqoU adBzrDOksJKdnY755IGDrhP ahEoPmEDh3G1CrOsq4PEIpx PjhAZ8k bRZbRFlqTs3diJvvsXltYM0 mOWAcartsr415ZnQbi5suNO XciQZoKJiwKCJ0E62id7J7F CMwMDAw WZF1kFY2qC3xrQajdkvllEY mdDsgdmVydGljYWwtYWxpZ2 50CFPnuDivCyQbhUh1E7YkP ub7ASLe oVriNM4pzVFcOZncXz9upJj xuTejPZ0gOYVyryjoh118Fb Jmw8tdHJIzwLSyIIttYZW9V 05ic9J4 JNXzXDDxOFO1mPH5bQ5yzOi nbjogbGVmdDsgdmVydGljYW wwCOjyL501IPYcxGymDzLei GllbnQg XQiwMKt9S0EpShyrxLM+PC9 4SIYpZJ56uDReiUGyr4cpeE l3SuNsMIQwFZZ1xCgvSBfqh 3JkZXIt Q76bkCZgt2Y0TLFlaUbcpJD dGhDwyAC8oY5sGOqmlchoe8 fzijxfHzrtg0esuh99wS92D 29sIHdp ZHRoPSIzMCUiIHZhbGlnbj0 mkR9sVv3+NNTcmHQ5kXX2dC 7vPLPoLeM8EFdjB713AlQoi CIvPjxj k6ifg0yxnRq2SfA8SDKcjsK pdJuiAJP1x2OfCk09P19yRE dpZHRoPSIyMCUiIHZhbGlnb r3gkU6q Ii8+DCAhoRA0pLW6mA3fNxI fYwE5UPdnQ138FuAyvSZtBh raE81bB2UrlTD+HTObWev9F CBzdHls CC8gaZNsMJjuEr0iMLK3CvI oDrUkMGxkM6QtAKXrxhrpkz nhoGO5QUSxIKEsuO82At5md DogMTBw oNKJoB1yclcrr1tubiljAgQ hHNKhAEk2MHv1ZBIgjUfhFh SwPCK1MkA3LXU6xGYefU7qd Glnbjog xT0uV6WqCOQgqrjkGt14jT0 oNvUbTdI1VHlgSyt+Q1JBV0 ZPUkQsIEJSRUFOTkUgTUlDS EVMTEU8 R6IwReq5CTLxlTekUS8kkTM eSCeuIu9fsUhwjScjIL3bZW NzgzwrYEEhiO8wSZNijKBpi SylJO5r AABdnnefk773KuPiFIW2FIM wrHYrW5TivR1sRyUoHQFlAP MvL6WzjQDgZFybW044RGogU qX7MMLw joUiS2EfJAVzeLavVlG9s6A 3Ng4lZf8cTV1sBZs1ZA03BN 37bNAuc5Y5mDM8T6RsYPPmw mctcmln uVA5GHCwTSTvcN89dPCkHFi xSa6bb4J8f115LZNsZRAvvN 06Hn8oyUfuWOIfdMZKxU7jk yzsb3kn zgdiBaRaSQMuFJr4ZPw0XBM lzJmlDvYcRWR5QrZ2UWE5eK TdaK5geQvrcturnY3xZln+M jYgWWVh suQ0T2ZcTno2XVWkdSqrGW8 adPTiACqzFy1yuDjbhUumCB 5eBIYlcdbjHKLrbD2kZMKps HRvbTog AH0dEAGaznvzd197BaGiDKQ 4QPWrmWUpP9KfsL0yYmDkBS BoIUFcM2VhyEQkYWtbX300S GxlZnQ7 WXJrdvOpW4CsIZKvfHpkZaN 3r4F0Ia1ZNJ8KTQD6F8BiYp e1GKYulCmkGY5bmSYtYYfqP s3mcNif iMaiYA8sRPWsxbyiBNXnuY5 oRZGdmIGkcCbjGF2aVYEoqn gbk517IkXzHGR3EZBayVGaH 1FspX0w GqHeMOGpIAReZ1YhtUDuSRu sA026AWnoTyL8GVNtvhMyY6 GeDOVwwLmcAnV8m9F3Rs7SO DwvdGQ+ ZT71xm39U1OjSrihOfd7LCT fXYV3aJE3aE8aWVVpQQlwj8 L6wAO1F9PaeoMxhe3br3zcY XBzZTog J91qySByi6L9HIKkfFQ8FJK uiDgwAqTadJ92Blp+PGNvbG zgn5FoAhdyz0vkk9mqqXd8B jMwJSIg biTlyKioPXK2x2NjSi88L65 sIHdpZHRoPSIzMCUiIHZhbG ivuw4byB7iGb3+LOSzqTB3u OK7eR5i JbRaYcS5LXijK938FyZluRH wYooak5fyb1mpbZt4VbHzMA HnopDcxXvjXTW0s9FeIg13W 2NvbGdy r8LwKug3ia86fANiv4W1bAK 7C7AaGIFgglshnYOfdZvtEE 5yAWTslkavZUNnfL1rSLHdV 1e1RdZt KwQ9SSkhC2KwfrK2SJLdoLZ gSTSiwBXBuE6hvkser6mjom zvXpMjZNEoQLp2BZh5ZJWgz WduOiBs YMF5OnH9OFO3iEZlpN5saOu edmrzoM2vBfn+MUu0v2mrcX AhQY3lbUR2XY11WV04kZXbh 1H2eTN1 G9GtAIZjxpttzwhneYI9NFU yJBMaaO00Mk8mzMzbHv9iZI WxDBA2ONWmbSGlX3TyjJ4dQ iAjMDAw NOVtD8HihGJsHPdeO721GDd iYiH1RZKpuoYfH9UbYUTihQ jtGjZ2n0E0Wa9BAG84JJ84H P22uNHi o6Y0yUV2U7FiDJSbchcmzky inXC1YIIzOWAvtW97Lk4ehX jqWi4qXJRnOCI9HTQcePOtA 5NmyP6t LgIuAYJxPVNjA2SvjFKrZUs lY804WKtfNgH5NRIkabKbO9 KrPLHhbDtxLyJ0y7Z1Ai8TR e35AE76 FU86xKZld7A6rVK8F8KyWIY ssbakbhavrAV7GVEjFAKyiJ 77Fk2knYucQy8mDRDlRSO3V FRpbWVz L9ZdyE1fVmKuHOExKSZvB5S pxXMzJBesQ954BYtsDnK3IQ EbikIsP6JbTWXneFeuEfT2l 8Y0Hm7W PWamjsr5D8ZsJthkbTT+PC9 7XJTsIO52pHEbqMPzv2apyU g1RiHiMJWkNCQ0bFfxGDknm 3JkZXIt Y29 (more content not included)... Normal [facility] POCT Rapid Strepon S. pyogenes Ag IA Ql (Unsp spec) Negative Invalid Interpretation Code [facility] Comment on above: Performed By: #### [id number] ####[facility] (DEFAULT)[address] [place] [address] C Throaton 09-26-2024 C Throat Normal throat justine isolated No pathogens isolated Normal [facility] Comment on above: Performed By: #### [id number] #### [facility] (DEFAULT) [address] [place] [id number] Coding Summaryon 09-26-2024 Coding Summary HTMLBase 64 DjdsxmrlFUu9kAf+PGhlYWQ +FK9TGJEwC81llRIjxX9zL2 NMTElOSywgQVBQTElOSyIgb cAaVI7imLHhOEXc IC8+IL9iIFAiCshvkTLvb2U 9xUP9F67eqt3gUMrikNS7WB HiXwRiwmpxs3xdcTi8VFbmU mluOyBt GGVlvW89DFP3lL93Uv20oIC jxJWqc9kahMt1TeBpFEPjPH X7fYxqHQvpa0UhFETeL33gi KDro2A8 QXUzzVutsYJgQhAupRS6nL3 lDRwzbsaik6afoffbJeb3mb 05iMUtp9T3rPA9F2FjssX5D GJvbGQg DcyxuHJVvD1drmgfc0brsbg wMwRtJBPsJTs5SZw6JXJtlT juZnKsSG53GLH5MRWgltJzG 2FsLWFs wGbsOiE4j1U7Uc8GL5AKBrq oS8FAUBOJJBpngNN+PC90cj 26A3ScAarxPhz3LTHsZYH4w RC1wX3z FLHuQFghv0L3lQE5B2GgtzC hcn9rx8skKZAjPUeaH48xcC Zyg8S8KRZctFF8NYBqfSxmN iBzaG93 Oyc+JGPxpIqij9RcJcyhm8b vy8cmpZv1VqqqQGXrvdZyzC aqKSW7c0SlWo1pIYJizHU2i GY7oJ7t WcDyEkR4OPgcB425EjRaaDE fCzkgK88bR5DyqXD+PHRyPj n9YQYgrJewCS5jJ5RpQYPce mctbGVm jYxjAR4dPYZcdbniTTTvsW7 vQOYzO1f6BuXgRqU8SDdbN8 CiHBGexcvpMg61fO4vFrSwH hS8EAwm P6ZvmbF0FFSpsBDrPRoeEDA 1W74in8O9TGDiMYQuLFT5oQ I2tB3onPzwqnoxzXButGkaf mVydGlj TDfhJEsaG426KNWmcIsfUaV vZGluZyBEYXRlOiAgMDEvMj IvMjAyNTwvdGQ+MRAgCGA8y WxlPSAn hMJuSMgyUl5cnLccmXwdIJ3 hKWEpctrgHIHolS4vAVEjgF TprZxxHU8uUWEhpniku803J iAxMHB0 KWLfmBUcG0RxwD1tSeXpKTD nPWPmU6JvdHDbOWakC491JV dhMyE3ZRDmrbRiU1SyCPHnt WduOiB0 g7U3Mt3Da1UhyuqqU5EywMI pWbIrUbhyHFs9U1YeVqfrgS I+KI15KEReTE28USe1HSA5y WxlPSdi QVUxD7JurF1yDdRxLARcPJS kOyc+PHRhYmxlIHdpZHRoPS jgYFFaIoYfnQugHO0tYf4xO GVyLWNv zHkpbGTgMtZty8puAAEzYSy jGM4dxAdgH8UknVI9TRUid4 j2El36V41tV7DtkIZ+PGNvb IW6kKG9 pC0tIyBaHfC7WQrpD633EhJ nuEPySamrc3kzq4shtVa4Tb V8QJFagkIggHnhEWW4y6XtW u65L94i IHdpZHRoPSIxNSUiIHZhbGl ojr6nlC2sDm1+LMTecZI5yI N0sV4wXsQcYoR9GBjxR555X nRvcCIv Ixccv8txn9earYs8FvBsELY cilDdwXoaCAN7t9BwGm64H7 CviOupg4KcTmr1nf85uECqa 3X0xBM9 H1UfTRUouimggYYbzGhfRZ4 hRYLdcamkTFFusJ5bKJTcR0 x8TzHiYwF5ZUvbN2MqopZ5T GJvbGQg OCHveQOIiD7dcvroo1swycd nGrRuJVNgMEt5VBq1LLFeqF daHaTxSSH7HhM7VFA1oHBmk J8ynGrk xxccyO6hVaq+VJY4uRDhbVB FGO6aTmpcpDZ+MQRwAYC0xP vmVNgbPHJzmT8sIKUhJ0s8Z iAwLjA1 BUzxX6OkdgU7RPFzyLWzARV anFXZoK8mmgxjc0ocgjpwIm HjGPYjZUc6TWa0OVRqcJqxN iBsZWZ0 HbA2OOT1cUXdtS3hiDukhgw tvA2qMbm+KqtgtBcdSEU6YF t3K2QrYpx7JOCxeCuiRD5fm GFkZGlu Tm7vdBeszDttXG6iPGRvtkg vv278ZzCnt5koUHYblMYkTH szMZP3A96nu9E3DTUlXZGqC SV7rVO0 nV3qnXvgwrspkYLibCdlyzU lbJlpSZgbBXgvD081TZJtbC lmMsPwSLw2V0DyYdx5TJUsj GjhMD9j hALhBAnaCn8goEkbxDimEV4 hJANmveqls943PnCmn6iiVO PojFDrPDrlILO8A26hf3A5I CMwMDAw ELL6cMD0oD5nvKxzstxfjDF mdDsgdmVydGljYWwtYWxpZ2 08PMWiwOduXyFmiGm8U3VcC yg4HSOz mEuuEJ9swCQoLAhpJp7rjFh dkRboQU5dRPXwoyjsz899Ny Ixx2qmGNOusCFjDPefFAT6M 42mu4S1 GLLnXUHfIZQ4sUL9xI3upLp nbjogbGVmdDsgdmVydGljYW hcYYboF734TDOofQxyUyJvs GllbnQg MUcdYLz5Y2IoVyraoOF+PC9 1AZCzYQ14qZKotMTwi1ldfU a5AoNnUZOtNIB2tVirPMnev 3JkZXIt X21ooCZop9J3PKUvuMqemBW qSfVnsIG1nD8gVZokzoxzs3 mczzwdRyudf8fdzf44kO41E 29sIHdp ZHRoPSIzMCUiIHZhbGlnbj0 fyS1gXb1+QLCthCT8bSM2zP 9iSWJyThQ4PIxgX510SaYwx CIvPjxj y5yhf7jluFt0DbH3BRSlvoF neNpnGSY4i8RaDr24Y60qDF dpZHRoPSIyMCUiIHZhbGlnb u8luJ2n Ii8+VIBskHP2qLO0rO8oYjT eGvI3GHriT581KiPpiMJuQd wdL80kT0XfzCW+FOGiGbz3E CBzdHls DO8vcUMcXKwyHp8qOVT1KiT wHsJyPVbsE7YgIGMbrqjtvb tqeIB9AIShSQFdxE61Yx3rz DogMTBw wGCKxE6yigyue2snnuefExX oTSJcAZo7GZl7NNYffJtwHf PrFRD8ZiW8RBU9gCNevS1zf Glnbjog mC7aT9GfOLQelxakSe20gN6 mKrMrZfN5BSuzPlo+Q1JBV0 ZPUkQsIEJSRUFOTkUgTUlDS EVMTEU8 S9CmWjv5XQNzkVotGM0teLI iYSrfQo1ohOfjoPlrLG9uDW HygzwkBOInrA8eQHWysHUnp MuiOY0f TEUtwswqg177GlGyYKI1TGO dkNMrD1YxpX9bMrNiMWUsNQ CwI3EnxTOoLYnzJ033NSxbU vP4NDIg pjMyN1ThKLZehTsuVeW1d9R 9Pi2nGo6yET5jHSu7OO09LN 74hRZlu9K8dZF9M0DlYFWkh mctcmln pOD5VYFjBBDdzE68fZJtEPw jKz8un3F3n834GHRoWBTvjQ 39Xa3mrDxwWVJgmGSHvX5qc nqlu2lq rizzAnUhEUBcXCn4PTb7AQJ ekHbeUxEpVHA8MkB0GCY0wY CmwM9aqMkprovfvS0fDmk+M jYgWWVh qwI8X2SsOho3KTFyfKsgIH3 zlYKzTIwwEi1yxQaytWymFK 2cVYCodnliVHSevK5cIGDws HRvbTog XI5pTEOzudcvt270RsYkDSP 7CLUojWVhD5RfdW3jHcCrYU TfARJlW5FckVZiBFcmI533L GxlZnQ7 CMFtfdBeV7TuFFMdlMqoRoA 5k7N6Ze3ELL6VCKB2R3KyJj s9TAKhwMamDR1ewDFlVWmnE x1mjWsg pJszFH4sUMWspeigHCHqoL6 fKZJotSNutWpkAZ6oQSHcjo yqn275YyWkZQI2UVQxpNThP 2KwpN8m RhQsGDXbJDShC7LvoLToCIb fL068TUvjXyC7DQBlmeBfC7 GgDXDyqGelCiX6a5Y2Lk2VT DwvdGQ+ JN91uo81R0IdGuyvUmo6IMG qJFU7pVQ5sD3tDNNfPFfot7 V5aZT0B9ChyxNofq6vd6jiO XBzZTog Y58ejWVtc0Q3WSGqoUQ8UBJ zqQagDjGcdA71Rfj+PGNvbG hmi5DrEkmxy9omo3yyaPu3H jMwJSIg utEfjQzoUXO7f0BzBe06E28 sIHdpZHRoPSIzMCUiIHZhbG eofc4uqE7aFo2+SUSqdLF0c UM3zT3s BgXpZwP2JRvgV055VaIegLA tNprvq4tkl9oylDo6SwVmPV KrctCjdXqfIGF0f1ZjAp82C 2NvbGdy f6ImJow7cu77hJLdo5G5zGW 9Z8YqSNAyhkqffALyiFdkFQ 8oIVAqqxzpTXRmvX1aKKVuX 3u1MhZm EqY6CPehR0FiqaD8IOLbwNA qQIShfUTHdH7urkbdn4bfyp tcUyTfMMKwEYh6GLu6JVXpf WduOiBs VHG0NtE0IRF8xMPecX8vfRu quqvmbF0xOar+ZCm0t6kwhA MnBT3ebVP6DT49NG33iIQfg 0O3oVJ8 O3UuAWYikzyquimreKK8JXN kXTGczG61Sb9onTirXa8sDD HgOSC7THCxhWAzP8VsaN3eW iAjMDAw EXCwE9GbjTOvCYzxS249SCp zHhM2DSTaodXuJ8NwWPYueX xiXuX6c7W2Iw4EFH80NF83F Q46xHJs j6P8kMG4D8UlIYFcpsjxahp zeQF9UEAqREQvuH86Dk7kmP hjHb4lCADtXVZ5REVelKSpF 1MnuY9i HtAsUQZnJTLcZ5PpzVShFEj jQ324HAvhTsE8CJUmbpAiB9 AuMJVkkJvwVmM6u8B3Tt6DQ s99DK38 NP91jXQiv2D7wRC0V2KkEFX hhxqbhferrNG7CQHhQAWyeD 59Uo9muIubFb7aAZZcVYK3H FRpbWVz D3JufW2qCeKuDYOqAUMpN5Z qbELpGMreY700AUveApQ4MR ExmeLcE3EtSXSdwZdeGnG4f 4J8Bn4I CIaqwqd9W4DxSgvruZY+PC9 0AQImOR84oSMdoGVwy5pusO a2FiTsLNUiCPW6xFclJIoba 3JkZXIt Y29 (more content not included)... [facility] ED Clinical Summaryon 2024 ED Clinical Summary [facility] ? Urgent Care [address] [place], [place] [id number] Clinical Summary PERSON INFORMATION Name: SHERLY ASTUDILLO Age: 24 Years Sex: FEMALE : 2000 MRN: Acct#: Visit Reason: UC - Throat Problem; THROAT PROBLEM LT SIDE Arrival: 09/24/2024 12:32:36 Discharge: 09/24/2024 13:30:00 LOS: 000 00:58 Check In: 09/24/2024 12:32:36 Checkout: 09/24/2024 13:30:00 Address: [address] [place] [id number] PCP: Radha Gomez MD PROVIDER INFORMATION Provider Role Assigned Unassigned Michaela Early MA ED Nurse 09/24/2024 12:34:37 Larissa CobbP ED PA 09/24/2024 12:34:58 VITALS INFORMATION Vital Sign Triage Latest Temperature Tympanic Temperature Temporal Artery Pulse Rate O2 Sat 100 % 100 % Respiratory Rate Blood Pressure /77 mmHg /77 mmHg MEDICAL INFORMATION Medications Given: Allergy Information: No Known Medication Allergies PHYSICIAN DOCUMENTATION DISCHARGE INFORMATION: Discharge Disposition: Home Discharge Location: Home PATIENT EDUCATION INFORMATION Instructions: Pharyngitis; Oral Thrush, Adult Follow-Up: With: Address: When: Radha Gomez MD [address] [place], [place] [id number] In 3 days Comments: You have been [...] next 3-5 days, also f/u with your DIRECT MAIL MANAGER, for reevaluation, return to the emergency department/urgent [...] 1:Oral sharon; 2:Pharyngitis Patient Understands: Comment: Normal [facility] ED Patient Summaryon 025 ED Patient Summary [facility] ? Urgent Care [address] [place] [address] PATIENT DISCHARGE INSTRUCTIONS Patient Information Name: SHERLY ASTUDILLO Age: 24 Years Date of : 2000 Reason For Visit: UC - Throat Problem; THROAT PROBLEM LT SIDE Arrival Time: 09/24/2024 12:32:36 Primary Care Physician: Radha Gomez MD Attending Physician: Larissa Cobb Comment: Patient Education With: Address: When: Radha Gomez MD [address] [place] [address] In 3 days Comments: You have been [...] next 3-5 days, also f/u with your DIRECT MAIL MANAGER, for reevaluation, return to the emergency department/urgent [...] these instructions at home: Medicines ? Take oxum-naz-lkfdpmm and prescription medicines only as told by [...] cool-mist humidi (more content not included)... Normal [facility] POCT Rapid Strepon 5 S. pyogenes Ag IA Ql (Unsp spec) Negative Invalid Interpretation Code [facility] Comment on above: Performed By: #### [id number] #### [facility] (DEFAULT) [address] [place] [address] Urgent Care Recordon 025 Urgent Care Record [facility] ? Urgent Care [address] [place] [address] PATIENT DISCHARGE INSTRUCTIONS Patient Information Name: SHERLY ASTUDILLO Age: 24 Years Date of : 2000 Reason For Visit: UC - Throat Problem; THROAT PROBLEM LT SIDE Arrival Time: 09/24/2024 12:32:36 Primary Care Physician: Radha Gomez MD Attending Physician: Larissa Cobb Comment: Visit Diagnosis: Diagnoses This Visit Oral sharon (B37.0) Pharyngitis (J02.9) UC - Throat Problem ([id number]) If you received any narcotics, sedation, or [...] sign any legal documents With: Address: When: Radha Gomez MD [address] [place], [place] [phone] In 3 days Comments: You have been [...] next 3-5 days, also f/u with your DIRECT MAIL MANAGER, for reevaluation, return to the emergency department/urgent [...] and treatment you received today in the [facility] were for an urgent problem and are not intended as complete care. It is important for you to follow up with a doctor, nurse practitioner, or physician?s registered nurse first assistant for ongoing care. If your symptoms [...] so we can reach you if necessary. [facility] has provided you with a complete list of medications post discharge. Please inform your primary care nurse practitioner/provider of your visit and for further instruction on these medications. Any specific questions regarding your chronic medications and dosages should be discussed with your primary care physician(s) and/or pharmacist. New Medications [facility] [id number], [address] [place], [place] [id number], [phone] clotrimazole (clotrimazole 10 mg oral lozenge) 1 [...] it is (more content not included)... Normal [facility] Telephone Encounteron 2024 [employer] Employee Authentication Interface Message Text Called patient lmom to call office for sooner appt... we have them available. Thank you Normal [facility] DRUG SCREEN RAPID (URINE )on 09-10-2024 [...] Healthcare COCAINE SCREEN URINE Negative NEGATIVE [facility] METHADONE SCREEN URINE Negative NEGATIVE [facility] METHAMPHETAMINES SCREEN URINE Negative NEGATIVE [facility] OPIATE SCREEN URINE Negative NEGATIVE [facility] OXYCODONE SCREEN URINE Negative NEGATIVE [facility] PHENCYCLIDINE SCREEN URINE Negative NEGATIVE [facility] TRICYCLIC ANTIDEPRESSANT URINE Negative NEGATIVE [facility] US OB 14+ WEEKS ANATOMY SCAN on [...] as of 08/08/2024: 22w0d IGP,APTIMA HPV,AGE GDLNon 12 -12-2024 AGE GDLN ACOG TESTING Note . [facility] Comment on above: TESTS RESULT FLAG UN ITS REF RANGE LAB Clinician Provided Cytology Information Source.............Cervix Other.............. No. of containers..01 ThinPrep Vial Age Algo ACOG Crystal... FLAG LEGEND: L-Low Normal,H-High Normal,LL-Alert Low,HH-Alert High <-Panic Low,>-Panic High,A-Abnormal,AA-Critical Abnormal Performed at: 01 =G [facility] [address] Melissa García MD, IGP, RFX APTIMA HPV ASCU Note . [facility] Comment on above: TESTS RESULT FLAG UN ITS REF RANGE LAB DIAGNOSIS: 02 NEGATIVE FOR INTRAEPITHELIAL LESION OR MALIGNANCY. THIS SPECIMEN WAS RESCREENED PART OF OUR RECORDS OFFICER PROGRAM. Specimen adequacy: 02 Satisfactory for evaluation. No endocervical component is identified. An endocervical component is not commonly seen in the patient. Performed by: Balbir Frost, Case Assembler ([facility]) QC reviewed by: 02 Lauren Ness, Supervisory Case Assembler ([facility]) . 02 Note: Note 02 The Pap [...] <-Panic Low,>-Panic High,A-Abnormal,AA-Critical Abnormal Performed at: [address] [address] Melissa García MD, Performed at: =G - [facility] [address] [id number] [place] Supervisor: Melissa García MD, Phone: [phone] Performed at: [facility] [address] [id number] [place] Supervisor: Melissa García MD, Phone: [phone] SPATULA-ALONE CERVIX [facility] RECURRENT VAGINITIS (HTRX)on 08-15-2024 ATOPOBIUM VAGINAE 0 [facility] ATOPOBIUM VAGINAE Not detected [facility] BVAB 2,3 (BACTERIAL VAGINOSIS ASSOCIATED BACTERIA 2, 3); MOBILUNCUS SPP 0 [facility] BVAB 2,3 (BACTERIAL VAGINOSIS ASSOCIATED BACTERIA 2, 3); MOBILUNCUS SPP Not detected [facility] SHARON ALBICANS, PARAPSILOSIS, TROPICALIS 0 [facility] SHARON ALBICANS, PARAPSILOSIS, TROPICALIS Not detected [facility] SHARON GLABRATA 0 [facility] SHARON GLABRATA Not detected [facility] SHARON KRUSEI 0 [facility] SHARON KRUSEI Not detected [facility] CHLAMYDIA TRACHOMATIS 0 [facility] CHLAMYDIA TRACHOMATIS Not detected [facility] GARDNERELLA VAGINALIS 29.341 Abnormal [facility] GARDNERELLA VAGINALIS Detected Abnormal [facility] Interpretation and review of laboratory results Abnormal [facility] MEGASPHAERA (TYPES 1, 2) 0 [facility] MEGASPHAERA (TYPES 1, 2) Not detected [facility] MYCOPLASMA GENITALIUM 0 [facility] MYCOPLASMA GENITALIUM Not detected [facility] NEISSERIA GONORRHOEAE 0 [facility] NEISSERIA GONORRHOEAE Not detected [facility] TRICHOMONAS VAGINALIS 0 [facility] TRICHOMONAS VAGINALIS Not detected [facility] GLUCOSE TOLERANCE 3 HOURon 1 10-11-2023 GLUCOSE TOLERANCE 3 HOUR mg/dL [facility] Comment on above: GLU FAST 83 (<95) Co l: 08/10/24 0708 GLU 1HR 131 (<180) Col: 08/10/24 0812 GLU 2HR 124 (<155) Col: 08/10/24 0912 GLU 3HR 95 (<140) Col: 08/10/24 1013 [facility] Urinalysis macro (dipstick) panel (U)on 08-08-2024 Bilirubin, UA Negative Negative - 4(70) +++ mg/dL [facility] Blood, UA Negative Negative - 50 Osvaldo/mcL [facility] Clarity, UA Clear [facility] Color, UA Yellow [facility] Glucose, UA Negative Negative - 1999(110) ++++ mg/dL [facility] Interpretation and review of laboratory results Normal [facility] Ketones, UA Negative Negative - 160(16) ++++ mg/dL [facility] Leukocytes, UA Negative Negative - 500+++ Edison/mcL [facility] Nitrite, UA Negative Negative - Positive [facility] pH, UA 5.5 5 - 9 [facility] Protein, UA Negative Negative - 2000(20) ++++ mg/dL [facility] Spec Grav, UA 1.02 1 - 1.03 [facility] Urobilinogen, UA 1.0 0.2 - 12 mg/dL [facility] GLUCOSE 1 HOURon 07-31-2024 Glucose [Mass/Vol] 132 mg/dL High NINF - 13 0 mg/dL [facility] Interpretation and review of laboratory results Abnormal [facility] Coding Summaryon 07-16-2024 Coding Summary HTMLBase 64 QxyqiqivQYb0lHs+PGhlYWQ +IY2SVIEfY69qhIHtdF3iJ7 NMTElOSywgQVBQTElOSyIgb hXtMY0bzCHiDVKj IC8+ME1hYNGdWwmroYKqh1W 4sIX6L30hms5kJJzhbKV6UP VnBjIsmzkuh6llkNg7BKtsZ mluOyBt GKEadC75LEK6aG47Wp31fCW piRNja5xvzBd5NtVpWLPkJO H9kRkzRZpca6QcOCJoS85yk EToy5J0 WGHklBomgHSfRvSggOJ1tH3 iWHdppsrjb0okxaooFes4rj 35tBMhd1D7lXV9A2JjbaJ8P GJvbGQg LfnpxPRRvU9qjzifq1ffvjt nSoVoJDZbDGe9QEv5EIQaaW ttOjOnMZ06PLO0SSMxdsKaA 2FsLWFs uVrbTdB0p6P1Tq1DS1CYQte yS0TYXHHSGBpiyLH+PC90cj 31W4HqMsysPow7IYYzITY1l AC8tF7i TYYpYVxir3J8sCZ9P9FkboR smf2lg2qlBEFyAFmwX04tgK Itz2I0RPDniNA7XQSmbOtaS iBzaG93 Oyc+MSAhbSpii8LkRlzyg7n at9edaDp5YfkbXPUgbrUgaO fkEAB4d2SqOm1wSLDyxLY1o OY7lP1c NpOiGbQ9LLupG812JrIlqIZ gHlmpJ21lU1LldIY+PHRyPj h6BIYhpVxiYG0tG8FuSGYfz mctbGVm aCfmQA9nDKQvpagjPZHqeC2 xLEYdY8o0HiReNiI4BCpuJ7 BsKIXurcsrCg66sA0rNvEpY mU1UKev Z3OreqA1HTNqePBmLIwxUCT 5G97ni7T5NSIrEAAaUQV4lT W3sG7jgFrzoshddQLucBexe mVydGlj OXhmCRtqI726HFAfvXfuRvU vZGluZyBEYXRlOiAgMTEvMT EvMjAyNDwvdGQ+BYHwSSW7o WxlPSAn pNIgSIgbGk1diEsjhTtzRC1 gCSDmqorkSGPgaR3mYUJzrP MfdMlfGA6iQMTefivfj110D iAxMHB0 OKMbtXTiJ1SgsM8iMvFjYPM nYIUcM1InvWPiJZftP042CZ prWpS7OTVqtoCaE5AbYEQdg WduOiB0 x3W6Al6Kg3QrwvhpF9NnqMT tSxDrWcqjNKe1Z6SiGmzfsB I+HB96GRFpQA46CSn6KQT8b WxlPSdi RHQyP8DuuQ5sOsEzHUNbBDL kOyc+PHRhYmxlIHdpZHRoPS vbQEZdOtDtvXzlCU3xCr9xN GVyLWNv aXezjEOeEwMhw2yrIPTcATx qON8gwCoyK5BkmOE6OFMdt4 z3Oh96K61bB2NlkWI+PGNvb XS0bEP5 xE0kFwUgWsK3VIzwF828JqS drLLnGbfub6cqe4bcqJq1Se Y1SBDsxbDzcFufLER9f1FfF x96V09m IHdpZHRoPSIxNSUiIHZhbGl azu5wkS2kSa1+AGTurYQ4vP Q5qL5eQxPeLuC4TBfgT899H nRvcCIv Gbuya7mgm1hmwXl0OzOgIMR bunBgpSrbDES5o4EuPj40N1 CsyBpaj6GhPcq8pk97sVXwb 2C3eFK1 Q7NmGJNxtornjUFurHbvFG8 kYOZdehiiNSCcgL0fQGEdZ5 q6NiPmCdJ3VYwdH3ZadnV0E GJvbGQg VTVfuLREeD4erwgfr7vchpy fEpXySKNlOVz1NMq6JKDlcW zqVoQzDAX9TlP3JVB5dSGky R5brJyy galhjL8gYpl+CPM9rJPlrGE SHU6iGlcqbRO+SHPlTET5yE juFLabGRZqhE4mIGJyG6p0N iAwLjA1 MIeoY7RgscS4QNMkvPIpQXG isIVYkI1gyyluk4exqhagNl ApQTAcEYp6KBt1CAUquMywZ iBsZWZ0 DkY6ZHH8rWGvwV5waPhyzue ltN3oZcz+RpfgjVivTTT2TM l8P8WwCdp4ZPKcrMdlNS1te GFkZGlu Jj2thSrbjFffSM5bQCWavhr pr140HiKvl7yjGKMjwCBwXL hvYMO2N54hp3V7GPOiLAGlL RX8nIZ8 yD3vcEypfychvRHfwBxoetG kdMiiOJgmIYubO745JMIegY bnQaEnMIt2F8CdZuv1DKDjh UypXY0q fKByUStkMk9rsPckrCffVF6 tKECdphblv841YqFqu2zrYC FrqAMgWCdhSWU5G00hx2F9G CMwMDAw OUN9sHV7aY2vbJuxglpumBP mdDsgdmVydGljYWwtYWxpZ2 04ZFUgbWcmNxVerMk7C6ApR xw4WBYj xCylDE2dgDFzJWojEo3eeXt jlHjzVJ6fSVLoxlczj634Ma Uoe3jsGYNpgIRiBYkdYQS7A 89vk6R3 JTUwHVUtCRI7pUU1lJ7xdIk nbjogbGVmdDsgdmVydGljYW tnJCxjI954DMEtcJfkDiNkw GllbnQg WPtfWXv8N6XyBhtjrKX+PC9 3FCWzYD22lTVoeUNen6nzkQ b3CsKwPFLbKZT5eUugNWiqv 3JkZXIt O20yjXWcw1F8YVFhrFuikUB iUvWbaHZ2bA1oYBatlkqaa8 mtffyuYfwdl8tnnr10kG53G 29sIHdp ZHRoPSIzMCUiIHZhbGlnbj0 rnD8xWi7+CXVnvST1rYD9oA 8nBLCcLoW7FOckY267KeSrj CIvPjxj d9omi1vlrWt8YdI0KZUxupR ikJtzTIK1y0IsTq29B80zEU dpZHRoPSIyMCUiIHZhbGlnb w2prP7n Ii8+SNXslWF4sPB9eD5nLdH uBhC0TQleF973HbIxpAMmLr ztD01hF7WksXR+SGAjNzl1O CBzdHls KD6oaVGcBWdlOw0xWGM5ErI yVvKtWWgnW9VsTZNfbovvrk cdzAV8KPVpRBTjwI64Ja0am DogMTBw zRSVvO9rqmxiz1wprqrkIvL hSPLbRTe9OBq2NMJqxWgnFc VrMOH1YkJ4HQZ2yHBelF5ym Glnbjog jJ3bV1UhCFVenbnyYw65gY1 qYnKtQoA8TUzqUdq+Q1JBV0 ZPUkQsIEJSRUFOTkUgTUlDS EVMTEU8 Q4YqXdt0ZKRmtKqgJC9ttKV gPIfqJl7mtIakoQptZQ9kZM ZohgmbTWShuU4zEJCgkSVbq XzyAZ4v CNUwknrcy812UpClJOJ7KBI duQIjA4UhhI4kBlCsPSMjGU VeD6KjaPImRYpgD331OJgkN lM4UTCv emQjP5JnCXEgsKqwEkG4l4G 2Ex6zFb9jXB9mPUn4EA56BL 06xVOnm9S1wLX8M8QvDNFrf mctcmln uQR3LAUvPJAvrQ68qWXlPWc bUe6xg9Y9m521LHCnNQDwuY 32Vs6hiAvtOKDqpFKUlK7nn ajmn4wt jxtjReRrVDXjAEy8SNb6FHU ekEvmZaKvDYD8ZkO3BSD5hV FmyH4geEcfshzobO5jWfu+M jYgWWVh tiS6G7GiFwg5AIFwjZubNS8 veGMdWZeoKa3tdYorpXwhGO 2qPVCknoasQSCkdD6aITCgx HRvbTog HL7dNPWtgyydx621DaAmEQJ 6WHLhkYRjB8DpzD5hFiEtPI NrVVEdQ1QzvBYsIUvnU418D GxlZnQ7 LOEyjiPmN3GqNPHzrKpsJoZ 2s4G3Xi0QCV4FZKT2N2RwCd w8ZCUjbDroOV5mfGUwQChcT u5liDvi hIezKH8jQEFiotjeTJMxoY5 oHAFakTHewYpzOW3aGJRcxd jbg103NxAmXSU3TEJaeVCeX 3VmdJ0y XzQmINBcRDHvW3NipGXeNPa iV231UHujFiM2SSXkrfEcP5 AlZJYceWfgRyG1z7W1Ke2GK DwvdGQ+ MR47fz37P1DeUvwyFbx8CXA uMEO9lLQ6fT9bZEFnDPkac0 I5uZE5V5EyjaXmft8cw4uxS XBzZTog G23khTYho8U8SYAdsQA2SMW stJmqGsSwwB34Pib+PGNvbG ohd9XfNoecp9xjw0dcwJk9V jMwJSIg fzRliIwnNVR0p5HrRa22O59 sIHdpZHRoPSIzMCUiIHZhbG dwop4bqD6vTr8+SLQteAP0i SS4pP3y ZaJkFwF0IJfeK649CsTbcVX nMwlhh5jnu7zbbVl5HgMqBO YzwsEobTijYOO0f8OhKg00O 2NvbGdy q1AwVir7pt43hBNpk1Y9iGN 2A4NqSTFfhketoYYebIdrRL 7mRGCjqhkrSOSfnC7sVAKxM 9r3KzMr EoP3THwxX9LfltT5HXEsgBD tKPEbrBXGuO1eqklfy6pxtj nzPmCfQGSkJZg8GEs1LXAot WduOiBs TOH5HxM1IUP8tQJsoY2icEs flurbsF1gDqb+EKj7y5atvM KvBU6aeVH5XR95WR10wRFmq 6S8mPF9 K5IbXNWhufkijddbyEV8LZU eFCFzsC41Hb7awCfcYx2mWG RwHCV8MOVelMGsJ8OnxV9wB iAjMDAw SJIoG3NquZLuLBtjL505UYt xUxJ7OALsjzZdW8LxTQVmqC qlDlX8g2O5Ot1PTJ95NN31F W36nUPf f0Q8rSW1C7YrWQEecztsktg oxMX2VMJcWOFsoX17Hb7uyU pvTd3kNXAiZYL3SIBixBBkF 9GgtW0x FvBqMTAfURMuV0TcmAGmSBz aP226MBuaJhI6YBLpusCrL9 RwHGRdcLirSdL7k8J6Ob7PK n18AF84 AK56qYEkt3T2iSO6C6ZwKDU lmrgbnmlubBW1VYDzORUbbH 42Bc8lvZavCm9fULEcTUU6M FRpbWVz Q3WyxI4tPeCnZUVnSEFlR0I jiEEyJFtgH739IMxfIsT4FF RqmmKmS2SsHMPfaWaiMkX7l 7S5Zg4K EJwuxjn2Q7OeUgectKR+PC9 4QXAgWZ41dIDfgFSjs7kdwC u0SdPuHDLtFSF1pYzxDDyot 3JkZXIt Y29 (more content not included)... Normal [facility] Urinalysis macro (dipstick) panel (U)on 07-10-2024 Bilirubin, UA Negative Negative - 4(70) +++ mg/dL [facility] Blood, UA Negative Negative - 50 Osvaldo/mcL [facility] Clarity, UA Clear [facility] Color, UA Yellow [facility] Glucose, UA Negative Negative - 1999(110) ++++ mg/dL [facility] Interpretation and review of laboratory results Abnormal [facility] Ketones, UA Negative Negative - 160(16) ++++ mg/dL [facility] Leukocytes, UA Positive Negative - 500+++ Edison/mcL [facility] Comment on above: small Nitrite, UA Negative Negative - Positive [facility] pH, UA 7 5 - 9 [facility] Protein, UA Negative Negative - 1999(20) ++++ mg/dL [facility] Spec Grav, UA 1.025 1 - 1.03 [facility] Urobilinogen, UA 1.0 0.2 - 12 mg/dL [facility] ED Clinical Summaryon 2023 ED Clinical Summary [facility] ? Urgent Care [address] [place] [address] Clinical Summary PERSON INFORMATION Name: SHERLY ASTUDILLO Age: 24 Years Sex: FEMALE : 2000 MRN: Acct#: Visit Reason: Vaginal discharge; VAGINAL ITCHING/DISCHARGE Arrival: 07/05/2024 10:15:34 Discharge: 07/05/2024 10:59:00 LOS: 000 00:44 Check In: 07/05/2024 10:15:34 Checkout: 07/05/2024 10:59:00 Address: [address] [place], [place] [id number] PCP: Radha Gomez MD PROVIDER INFORMATION Provider Role Assigned [...] Location: Home PATIENT EDUCATION INFORMATION Instructions: Vaginitis, Hfjx-aa-Pfoo Follow-Up: With: Address: When: Radha Gomez [address] [place] [address] Business (1) Within 5 to 7 days With: Address: When: [place] [address] Business (1) Within 1 to 2 days DIAGNOSIS: Vaginitis Patient Understands: Yes - Patient/family/caregive r verbalizes understanding of instructions given Comment: Normal [facility] ED Patient Summaryon 024 ED Patient Summary [facility] ? Urgent Care [address] [place], [place] [id number] PATIENT DISCHARGE INSTRUCTIONS Patient Information Name: SHERLY ASTUDILLO Age: 24 Years Date of : 2000 Reason For Visit: Vaginal discharge; VAGINAL ITCHING/DISCHARGE Arrival Time: 07/05/2024 10:15:34 Primary Care Physician: Radha Gomez MD Attending Physician: Spenser Fang Comment: Patient Education With: Address: When: Radha Gomez [address] [place] [address] Business (1) Within 5 to 7 days With: Address: When: [place] [id number] Business (1) Within 1 to 2 days [...] and use condoms. General instructions ? Take dkjf-fec-pylqjqp and prescription medicines only as told by [...] provider. Document Revised: 02/19/2021 Document Reviewed: 02/19/2021 [employer] Patient Education ? 2023 [place]. Medication Information: The exam and treatment you received today in the [facility] Emergency Department were for an urgent problem and are not intended as complete care. It is important for you to follow up with a doctor, nurse practitioner, or physician?s registered nurse first assistant for ongoing care. If your symptoms become worse or you do not improve as expected and you are unable to reach your usual health care provider, you should return to the Emergency Department, we are available 24 hours a day. For those (more content not included)... Normal [facility]gent [facility] Note- Provideron 07-05-2024 Urgent [...] History Medical history: Resolved Ankle fracture, left (71393335): Resolved. Ankle impingement syndrome (794999386): Resolved.. Surgical history: Cholecystectomy (36371014).. Family history: Anxiety Father Sister Diabetes mellitus [...] Substance Use 05/28/2024 Substance use: Current Comment: Denies - 11/19/2023 09:33 Marisela Puri RN 05/28/2024 [...] doctor a (more content not included)... Normal [facility] [place] 024 Urgent Care Record [facility] ? Urgent Care [address] [place] [address] PATIENT DISCHARGE INSTRUCTIONS Patient Information Name: SHERLY ASTUDILLO Age: 24 Years Date of : 2000 Reason For Visit: Vaginal discharge; VAGINAL ITCHING/DISCHARGE Arrival Time: 07/05/2024 10:15:34 Primary Care Physician: Radha Gomez MD Attending Physician: Spenser Fang Comment: Visit Diagnosis: Diagnoses This Visit Vaginal discharge (998666354) Vaginitis (N76.0) If you received any narcotics, [...] sign any legal documents With: Address: When: Radha Gomez [address] [place], [place] [id number] Business (1) Within 5 to 7 days With: Address: When: [place] [address] [place] [address] Business (1) Within 1 to 2 days Medication Information: The exam and treatment you received today in the [facility] Care were for an urgent problem and are not intended as complete care. It is important for you to follow up with a doctor, nurse practitioner, or physician?s registered nurse first assistant for ongoing care. If your symptoms [...] so we can reach you if necessary. [facility] has provided you with a complete list of medications post discharge. Please inform your primary care nurse practitioner/provider of your visit and for further instruction on these medications. Any specific questions regarding your chronic medications and dosages should be discussed with your primary care physician(s) and/or pharmacist. New Medications [facility] [id number], [address] [place], [place] [id number], [phone] terconazole topical (terconazole 0.4% vaginal cream) 1 [...] Eating food (more content not included)... Normal [facility] ALL CBC WITH AUTO DIFFon BASOPHILS ABSOLUTE AUTO [address] [facility] Healthcare Basophils/100 WBC (Bld) 0.3 % 0.2 - 2.0 % [facility] Eosinophils/100 WBC (Bld) 1.2 % 0.9 - 7.0 % [facility] Erythrocyte distribution width (RBC) [Ratio] 12.9 % 11.0 - 15.0 % [facility] Hematocrit (Bld) [Volume fraction] 40.3 % 36.0 - 48.0 % [facility] Hemoglobin (Bld) [Mass/Vol] 13.7 g/dL 12.0 - 16.0 g/dL [facility] IMMATURE GRANULOCYTES ABS AUTO 0.06 High [facility] Immature granulocytes/100 WBC (Bld) 0.5 % 0.0 - 0.5 % [facility] Interpretation and review of laboratory results Abnormal [facility] LYMPHOCYTES ABSOLUTE AUTO 2.5 [facility] Lymphocytes/100 WBC (Bld) 21.2 % 20.5 - 60.0 % [facility] MCH (RBC) [Entitic mass] 29 pg 26.7 - 34.0 pg [facility] MCHC (RBC) [Mass/Vol] 34 g/dL 29.9 - 35.2 g/dL [facility] MCV (RBC) [Entitic vol] 85.2 fL 81.0 - 99.0 fL [facility] MONOCYTES ABSOLUTE AUTO 0.4 [facility] Monocytes/100 WBC (Bld) 3.3 % 1.7 - 12.0 % [facility] NEUTROPHILS ABSOLUTE AUTO 8.7 High [facility] Neutrophils/100 WBC (Bld) 73.5 % 43.0 - 75.0 % [facility] Platelet mean volume (Bld) [Entitic vol] 9.5 fL 9.5 - 13.5 fL [facility] TBH EO # 0.1 [facility] TB PLT [address] [facility] RBC 4.73 [facility] WBC 11.8 High [facility] Outside Recordson 06-11-2024 Outside Records [id number] [facility] [id number]#1.00 [facility] Coding Summaryon 06-08-2024 Coding Summary HTMLBase 64 BspduhrdGWg8uMi+PGhlYWQ +US7JDJLpI04ytYDezH2kI0 NMTElOSywgQVBQTElOSyIgb rIpZN0lgFUkUTIi IC8+ER5fKPCwDauofFHqa2A 3aUL8K23oxp9dQJnbxJU1BS RbBmAkyyjbc0yxnOs0ICcvU mluOyBt IUYhqW03QHC9sT99My28rVY bzFBbd4thtWj8UpBkMKBvUG I0eTwsMIkyp5RaMTBmT78cn NFco0N9 IGUynRutoDQdMzPleDU8wB7 dWKawauphl5pjeaarEhb8ba 79sVFtf1H8rOA3E4TgljQ8A GJvbGQg YrmdiXRSqI0efuwai9ebcxi rTaFtGLJpIRg7OCy5PZGznR geDxQhIE54IIE3HMMfouFpZ 2FsLWFs oGjaEhW0r0M6Oc9GE4JLGqx cL5FECQTEXNjfmIB+PC90cj 10Z6DuDdhgIju1CHUqMNM5r HG2yH7t XLXfSEgtf0Y7mSI2E4XjudI sik4nj2pmFAJcHVfzR48jwI Ghj1J0VSBjjSX3UAPofCvaW iBzaG93 Oyc+KIQmiTdym9SpAkljf5n xt0vqeTg6GoegOJXzzeQisI opLGA1u2EzNd4mCSBldSI7y ID7sK2f UzVdBlV8KOygF822VfUyrYW aBcmvL86mT9DpzYB+PHRyPj t4BIHqnJrqUC7hA9FzMLLya mctbGVm cCzmCN9tOTPccsyqGXWpsC8 pCENuD8a8XlVhJaD8UBczG7 ZeWCVuzyirXc06qR9tJfJsT dM8EBpz H2EyxlZ0DUKqfVOpNEszVJN 1G02nf0L3LKCmIPFvKJZ5dI L6tN1mwHuxiabpxWMxvNnil mVydGlj ZRjhTWyxP607QPLlhKxdJyM vZGluZyBEYXRlOiAgMTAvMD QvMjAyNDwvdGQ+VXVgEXF9j WxlPSAn pVJwBLweMb8kpHpkzUigAM0 pICSfjhmdQBYzyT8vGNFyqS DznPlqFO2tMLUsudiej553S iAxMHB0 BZChaNBsW5MajB6xDmLeJII eEIEgR3EtvBVjJVnnX239MM nkByA9LWGervUnV7VpKTDqy WduOiB0 l4G9As4Ib9AfxevhF6OimKA wQuQmVojwMEx1E9VuMdjbyT I+IE76RQUbNM04GOb4JGK0m WxlPSdi LSEuT7DizA3gIkUiAQSvFSL kOyc+PHRhYmxlIHdpZHRoPS inOSQgWnTvlZvxUU9fXc3hE GVyLWNv yKulkOWyNtHzu6mwDCHyNKx lGX7cuLqlN6UgpAJ1QAFsb8 f8Gv57Q58rL6FgvLZ+PGNvb BL3gBK8 mW1cPvLtErS1HOntY160MaZ esMXoUsdrs9zvs2umjZq5Dr M3ONNbmfBkiZvnXEK9r3ZvL b63J42q IHdpZHRoPSIxNSUiIHZhbGl vkc1dgR5kLk4+SGRotFM3zJ S8jA5uOtJiNeP8WEuyM267A nRvcCIv Jfukm1izp7icsLh0VmWgDYJ zprBlmJdqJDT9t9KyLc31O1 AcbTsea7EjQnw3go89zBHre 7V6gSO8 T7HbMHTzbniqtJOwaJfgNA9 mNJYzcrgrLTRmgE6yKYOaW9 r7HmPxHiP6DDujS3ChwvW5P GJvbGQg CIMnrEOTvP1znyzxf7dsmwf vLmIgDRUiLQv0VPs5DNUkgI eoQqZgPZG4XvP0HCB4kBNvh E3teGyb wcqjfI0bNvw+CAZ3wSCnvMF VRH0wIxtftML+DRZkWOV5hY skWHunRHOwoU3cIORuK7u5R iAwLjA1 XRruQ7AiicB9LZJjdMGpHHU woHRVlO7pkdknx8svkbaqIe EqUKXoZMn1BBd8KXFwtVmbG iBsZWZ0 ZmP5IJW3dRYfhA4lsCuxydm mpZ2oQal+TctdpVouUTB2BJ o6R5OxPbu0EPMpyLdrSJ1mf GFkZGlu Ky1nmIhtrTwuMJ7cUBGriit py680OmKba9ydMATqjSUeNH imJLY7I66iz6S6SZJsNDJnU JI5cFD1 mP6jnFkhdhwxzAKdjTlojtW pcFpkSXfiIDsoP075WQQvrW juMeTdCIr3X5IsQjl4IZSqn FjhKY5s uIAaLMquSa8lzEcfyMtaIW6 vDKMxrnnyx008BnUsb2gdGL KeuUVmFZjmGZT7Y27bb4I1I CMwMDAw OJB4aIU8cX5ypGxtdbdcbTZ mdDsgdmVydGljYWwtYWxpZ2 21INAjqSwuEgLgbGf8Z8JqD tm1RYMf jRghCK0awBVwDHbxDe1ptFs prYvvMC1jFQVxecbjp459Vh Uni6ioKYMamEIdHHnnJWJ9P 34yz1V8 NYRxURDcJMS0pSV6eL3ghPu nbjogbGVmdDsgdmVydGljYW hmYVziU371TUIspKkwZyAam GllbnQg UWyiRQd7E6FsYvfqjVS+PC9 3AZVmWT80sKXisKDuq2dspC n8UwRwTAPjXQO9iDkbNDguq 3JkZXIt O48xrULhz5X2KYAvuTsrtIH dDwKnuHO6qM6mZZvaayvxt6 svwsntRgbzn4clrs27wN98L 29sIHdp ZHRoPSIzMCUiIHZhbGlnbj0 ktQ9eKt5+GQQoyVK5pAJ7jG 3jZQTpLoK6ZKyaH569GoBpp CIvPjxj d0fwz3ymsKw5XuT9QNElpyK ibPesVJP4w2KePg06M32eNS dpZHRoPSIyMCUiIHZhbGlnb s3eeY7s Ii8+XHSipPI3jPE7wB6qXkO qTwO3YYkzI894HvYjsAYgNl mkB90mD1XecNY+ESQjVon8G CBzdHls OC5awZJgJIdmNc3oCSQ8RdP tVqWwQWovU2OqWGTnswhjdq hlyYI8VCFkEDGylQ86Gh5sw DogMTBw oRQZuF0lksslx6yulhxcXtB yGDNtDCx9SEn8TLVnmTngSq AqWMC0KkK0QIA0sGRxmE0pi Glnbjog iG9tU8KuBZAlpqwiUd93vU6 yGlCtGbT7XJaeXcd+Q1JBV0 ZPUkQsIEJSRUFOTkUgTUlDS EVMTEU8 Q1SgLxg5PNRtoQtyQT5zeZK mLCmtQm1taEiamNenOW5uHY LfvqnmUFUosO5eISFvaBLji LmcUD4u TGCapvzqj623AiFvMZD6OFE mtGCsU0WutL0yFrFcFASiBE VyB9PuoUBdDKbuO775BWeyS hD9CSBz eeZjJ8QaDTOcuHftHtR9r9C 9Wx4aBd5rMW8zTGu9EV92IB 67iBAxw1M2fZV7J3SpJUMef mctcmln zLM6NONbSMCdbN56oYGjMFv wGf6sz4P2j675YKFmOWYmvS 67Gw4piDpbNYRvpDESrW8us fmaa6lm wszdYzJvBSMqISo9UAs1LEW wdFiaBcBfJRS5ScE8DIJ0mU BxbM4hnOkcsaznqQ7wBch+M jYgWWVh voT6Q8IxOks6ONTrhTiwRB9 rcJSlXKkyCg7uwJennAajAC 8zNSWoxosuZZIxoL1hOGOjg HRvbTog XC9bQIPhapexh370HfWePXD 2MQEahTRnS3QlxI6lAvKdYE MlNFKvQ8OqmDMfLXykY579Q GxlZnQ7 AHNjsnHsJ5UmNQEvjUaeXsD 8v1P6Uo4ZXM8QAKV3T3WlWj u3YJKzmUdqED6auSWbXGjvM u4vnMuz oWchQU5zGZVcfdqoZIOgsM0 aBBLzcNNlpSvaLK2mSLEuuz gmc793YiRgHNH4RPNozHJiK 4AdpY9v OcWjVZKvZRPiM1XfiSZgHNr fC521ZIcgQyM4MJFdfdWvQ1 TfUWPplAveFqA2f4U0Bv6Dk GWfT1Ux O3o5C6ZwKysfxSA+HH88DYK uTI86rPTjlQVnb2yuzTv9Bk IkARAwNIU3lYrlEDhbu6ExF HHtD98s jJAlr8U3CXNauUsutQOzPiV lsVF8mG2wMXztfqolb2rbxe jmJvfsj4jvps70bE46V86uT HdpZHRo LQPxBETxUAOuhXjltl4nqC3 wIi8+QYEurQG6jJZ0wE8mSj PpKnL1ZBorT358YpGrzEGlP twli6bo g6mkyQc4FeGlTDYiywHskDy bHFS8u3RuPw17R60hDEshRG ByEALcKJOkJNHalQlouw2fd G9wIi8+ YD5jg9gsmj91mR09qNO+PHR sEXS2aZncDEozLOIddF3eCJ sfXtC7XLJkOiTezZ59bWTbG NnvXe1u zXczjVvkEF6dVWNeelfey42 4VlGxw2bvYLDqwQStJXptJF Q3S57mo9H9ICYvTBRdRTQ7y OI2nK8j bGlnbjogbGVmdDsgdmVydGl iVIqmUVacU132KMKwbHmzLn IrvWCdF3toruPSIC5dEzojs GQ+PHRk IJI5xDfoFXowXFYttR9mXDA oK4u2UzKdEjB2PRxnR0Wyto U2CDNiqEPuCPBmdLSCjU9bi yakb6jh nsjqDbQuEACbBJx5YWp0RZQ agNtuDmBoXEP3QvX0DXN9tN JxsS1uxRoigswoiS9yLyf+R klOOjwv dGQ+XYEmKIR8nLxiJRppTDJ agC1tVMJqG1n3WjMyLmB4RL mtC7PvnbO6XTYsvUXdLLIrf CQWeW3a idiwg6uaoxefQtWrABCqLAg 3HQh2OAWhiEsxWoVvMUM3Vk C2OXF5pLWpmC6hmFtzminof G9wOyc+ TVJOOjwvdGQ+OBJdCSY3xRo uSZnhJJXmyK8aPTJaJ7n6Ew VrEzH4HBvuL3PabqT8ESFnv GQgMTBw zOAIhH7zuytpl9dhocghBzO cXTRlELb0PMp5SRTooLepCa UhAXN2JxY0YYR4kHNyuU8bp Glnbjog bY7hIjy+GAC5LKW0BC34ZL6 7M2VzCdyvzYEgnOP+PHRhYm xlIHdpZHRoPScxMDAlJyBzd ZqkZX0r Ym9 (more content not included)... Normal [facility] HCG ( test) Ql (U)o n 06-07-2024 Interpretation and review of laboratory results Abnormal [facility] Preg Test, Ur Positive [facility] Urinalysis macro (dipstick) panel (U)on 06-07-2024 Bilirubin, UA Negative Negative - 4(70) +++ mg/dL [facility] Blood, UA Negative Negative - 50 Osvaldo/mcL [facility] Clarity, UA Clear [facility] Color, UA Yellow [facility] Glucose, UA Negative Negative - 2000(110) ++++ mg/dL [facility] Interpretation and review of laboratory results Abnormal [facility] Ketones, UA Negative Negative - 160(16) ++++ mg/dL [facility] Leukocytes, UA Trace Negative - 500+++ Edison/mcL [facility] Nitrite, UA Negative Negative - Positive [facility] pH, UA 7.5 5 - 9 [facility] Protein, UA Negative Negative - 2000(20) ++++ mg/dL [facility] Spec Grav, UA 1.020 1 - 1.03 [facility] Urobilinogen, UA 0.2 0.2 - 12 mg/dL [facility] Coding Summaryon 06-05-2024 Coding Summary HTMLBase 64 NxlqffxzIWh4cXo+PGhlYWQ +CL2ZXCKnJ81bdUXkoG1kP0 NMTElOSywgQVBQTElOSyIgb oRcZL8yoZKtUEPl IC8+ON1lYZBjDigcyEVtt3N 2zYW6G49fsx9iGPdpyCG6AY WvPkPctwgbl8fbrCv3HKjnA mluOyBt MWOsnY92TRD6mJ83Bt68pUM ckXYfn3mbvSk0MfAnFWWcVY Q5lWelFFhuy5ScDWVjI47xm GLel1I9 VTWbxIunfLTuJhNwzTE4sV7 mHAyoqxfgt7hvqiykRpx5ae 52dUOsb5K6vGQ5J0LaxjW6U GJvbGQg FkhwkCPMaY8hhkwsr8hoynu eKiByIDWlEQj4YVs5VTTrvG dqGbMxFP69YBS4ERLyrpNdS 2FsLWFs xUuvVgP2i2Q2Mc0DN1YPUyj eQ4ZDSZXJCZkcxBZ+PC90cj 24K2XkPwolUgq1LSMrQEU0w VV9vA4q DEZoUFeio7N7tRF9J2GkaoZ wgn6du6oaDPEjFGkvS69daD Wbz3K9CDOgsSQ7ZLXetIqoB iBzaG93 Oyc+LOYuaLfnv5JpDgnbb7z lz9mflLl3KqueKOUyaxWovR gdKEE6l6HgBz4kNGPezRL1g OI8mU3i OuUzZrV9QLyjW699OeTscIQ bLgatV82qX9BshXV+PHRyPj z9WRZhaLuwXM6dM8ZoCPHdm mctbGVm rKavXM2yTHYrqifkOALnrI1 mYSAgM3x6VvUfQcB3DEtrV5 IkJINbgpbmHj26cW4gYxRvU vR4WZha L9KrfaF7SAYfjRUqFTjnVYF 7X92wy0T2FQJfWLYgRZI9aW O9fL8crFilleexfBXnuBbsx mVydGlj ZBsrJGpxJ687QXIeeUoeHhS vZGluZyBEYXRlOiAgMTAvMD EvMjAyNDwvdGQ+KLZyPDZ9s WxlPSAn iHFkXNyoEw1ftPjpsEtuKW7 gVNRxqazxWQEqgS7iVGQdmY JjxZznUI4fCUUehqspz905L iAxMHB0 WVHhuBDaC7EhcT3kSjCtEXP jLQKaQ5NphSRuGYapT656KQ oiJqA3VRChmeXuL5WtOEUfk WduOiB0 q9T7Gx0Zt8SiycooX7OvdOE cDgGzLqbmKCx4R9ZcFxsotK I+GK52VAAvPQ57GPv8WSH1c WxlPSdi LOIgD6KjgZ8mFyKoDSBmHUG kOyc+PHRhYmxlIHdpZHRoPS dwQFAzXsPtkGsrAE8cWx9wI GVyLWNv zChzkPPfMnLkv1ptKHJoGUh zDR3csPfeN3OchBA1WJUuu9 f3Zb59O10cP5DhyWF+PGNvb VV6jTL8 iG3bUyEgMpM3VEztN033ObS lgWJpGqkaw1iix7vhuUx0Aw L1KVBjbgPfxLyaRDW8z0OjJ i14H05a IHdpZHRoPSIxNSUiIHZhbGl hmx7ktG2nFy3+ZJBatMK2cO M0hU6jOkQaXjW0FMqiI356S nRvcCIv Mufuo7xff4lsjJm7WjDdEMO zsoKrrFleUGR1o5DoLm77N9 IrmTqgp6XlWar9zo61dXQbg 1B8lUJ7 V7ErQBGnyvxkqMGshJszYC8 bPSIijtzpSRHkcQ7oVPDwW9 o2WpPuGnH1PDqsY3QuxcI4A GJvbGQg KIPhmAPBmB5qtdkex8techw fNiWsVIHxOFt4WKy4EZMhlE eiAlDhQGU6DlY2UOV7tAUjw C2gjWmh fqfsvC3jCvb+ADG1qUKhrVV PDC0sPzwdpAJ+PIIxZIV6hP pzHYwhWSOwuN8fWWLuJ2x5V iAwLjA1 TBpdD4YeswG6MKYasYGdWWN ysRSReH9boansd3epkngqQw DhIDErDQe1KUt9VTEjjIjwA iBsZWZ0 IfR9UQI2bAUivQ2mpSsnenb yhK0wIxa+JvbgmRvnFMU8DP d4T9YwPbz9XFNdcZufFW0oz GFkZGlu Ma4pbXredRogOG4sLJVlgqh fj261KxBlw9ywVHRumQXeDZ niOWR9U90qq3W4TETsCFVgZ WW1yKW9 yA1lcMbhiupncQOdxDhywpK daLqrCGzlGRuiG874GUBkgM zcIuJmIUy5U4HzJcf9EHKxq FowYA1s sIDkURtmNm0fnFehiLsuUD2 sWWNpwyizy704OrYxd8znLW LzcYHrPDwbERN1C93vr3F7E CMwMDAw QID1rEP5kM8acKchtjyjrTI mdDsgdmVydGljYWwtYWxpZ2 67KWYgmBfqKpJjpOk7L1EoF ja9LLHw eTgpXX1wuAEqSEqkUb7vmWq okNeeEN0vEEPhxvlnn287To Tap8gaVOGntUGaYJdcIYW6I 79fy5H1 KQElRERzDNB8hJI1yM8iwUw nbjogbGVmdDsgdmVydGljYW xiQBcuE519TITadNsgWeAdc GllbnQg YEyxSBr0X6EpHmacmOS+PC9 6VIDoYY84gWZroKMrv4wasH c9RzFaWKNkFZX5eJgdQGqft 3JkZXIt R43crIYyx1N4AZAxjVumjVZ jSjCbvHG2fE4uXZdtywgkl8 cyzhwjHnydd6pknt60dW84K 29sIHdp ZHRoPSIzMCUiIHZhbGlnbj0 apT0fWx7+VKSdfPB9dZE8qA 9aDLIqBpB0TXprP682FfPlr CIvPjxj r9crp4vrnLa1ClF9AXOoaaC rgVtnUCF2c7TyKp00N72nSA dpZHRoPSIyMCUiIHZhbGlnb v8qtN7q Ii8+IAPygOQ1cPT6nW3vHiG wIkH9MTzaT669DzAbdQTmSt imZ15xJ4SvuPZ+BKXjNnx1F CBzdHls IS8fgXOjOEqwRg2zLXS3LeH iQwJtBVjdW7HjAQWcygzqmr txpNU2FOAwSSTymO70On3mk DogMTBw uXIIgS4qghdwr4ntqfppToM rRAOxVAm4ZFj2QWRthLnyCk HkXEN3NsM8EZE8yROlcP8ve Glnbjog qO4nL1FdEHEtxiduOe28eJ5 nUtYtVcB6GQyjBti+Q1JBV0 ZPUkQsIEJSRUFOTkUgTUlDS EVMTEU8 H5JpGzb8EUViyWslIO1nzUG cFMhrQz3fjMarcKvzJZ8lMC QvhbjyBYZseI5rCCGwtDPms JbkFB8f QAYvilyqq571MkRqWLL1ZIJ rxEBiF5FymJ8oRyOyZMLiST PsA5OnxVHxNIwbV358BAdqU xW1TCKf hgZdW8MeVPHmwHrjGbN2e2E 1Ct8nZe1eES0kOWx8TO75XE 94uNNmj1I7mTT2Z9UwOSCzt mctcmln rZX8IBWqQUJymP91uKRwQDf vZz3yn5W4n327NWMgVUPxfI 56Jn4orLbyOHOdiVKIcR7yf ntis1ma voinMrYcZSTjRLy7QVz1UTD hkCkjZeXeHSU0VpC6EGZ6kL InoN8cqOadawtafS8hHkz+M jYgWWVh wpQ4M7GvWev5LYKloRuuNR7 uwDOuYTixAi8tpIgubBelVM 1mSDCqdntvBLJluU1xNYAoy HRvbTog DP5iVFQdgiilw929XgXmBHJ 6EBYwfNMgU1EnaA5gPuWnIZ YiUWYfE5VddACoDEnmS389U GxlZnQ7 JOWjrlAeY9TnONWezBejJzF 4t0W8Oi5QMV3MFZF9X2YyZq a7ITHijOpfKH2kvIWgHHvmW x4byPkd dCdbMC3aRYJwppetCKMrrL3 tTJIhlEIseXbcYE5cIFTval wns989KjNpPNB7GWWfdEXpS 8CfkC8n BoKcVWWjLOQjW8FjaQTqSOl fY651PMehYkC4QFWwddVfY3 LwNNLvkPtdChS1q1U5Nh3TK DwvdGQ+ QK90sp79S3FrFzmrAvu2VOF fMFI0yJX4wV0sNLFyJQykw5 U0xOA8Q8CrczZmxj2kr8rhU XBzZTog X96wiBWhh2H8AKOtwUJ9ULI cpSxiPfUzmP56Dmv+PGNvbG tpc1PqAnceo8wnz5fleTs2D jMwJSIg uwCbdOwePIZ6h4OhAz83G05 sIHdpZHRoPSIzMCUiIHZhbG xrrh2avM3iUf4+TVQyhJX2w BO4nX7p MaUrIgL6TPpyW281CsVmyXA yNibwp3bui8qwnVq2IpXgND QnqdSkcPflQHV0g3PkSy33Y 2NvbGdy h7JxWoi7hx47uKClp6T9lYV 0L1OxQBOzqadmrMGqrSzpNW 2sZKChlmnmJETgqC7fIOBtC 8k5DrJx GvS4HFzlI8IlunR3YFXcaVE pFGKqbWJCmL5ifwcks5gnbz rtOhGoGXIcYDc8DTy6JRJdq WduOiBs IGR0MuU1TIW6kYXheH0mlHf mlwewyI7xAmd+HXb3d7ajaZ SxJQ0vdNZ2WQ96XD54oCRon 1G8kRD1 H0FaNRKkhhtdmjjwmKL4WVF jMYXgnW39Jm9tsWhpIi3bEI YiDQH3COEfiCNtD9MpdO1gJ iAjMDAw MDYnO6CvpRGyUWuoO679CBt oOuI0FSLqvnGfX7QhXAQmmP jnLrC5m6J4Jc1JAT41HE13L I98lBRz i8G3pIB7C6YiCPLhfubwrvz kvRS8PLIwPROkwK98Sx7paF ysBn5rJUNtIFY9OJGhyQNmX 1StcO8i HyCtKVQjIJItS3TasXQwFGx gN852VBrmWyE3KDUhhvKmF6 TvMKGkxKynGwY2w8L7Eq8HW t33JL08 IB19gKBfr3G3wVQ4K3TjFIG ejldmckhvgUO6VVBmOPEnhB 85Ew6nnPxgNq0nBXFzTTF0Q FRpbWVz F5AxdZ6qOoQeURFhHTPpT7O xyECkJTzmS404HPjyHvI4WJ WnrtGcO0FmOSIizDbmNqD8z 1X2Xz9X IIltjpy9B7ZcRjtifNL+PC9 7CPTjYN56eGCdoGUvk7nixZ i6GhNkRDGwDLX5eBodRWrpj 3JkZXIt Y29 (more content not included)... Normal [facility] Office/Clinic Noteon 024 Office/Clinic Note Patient: SHERLY ASTUDILLO Age: 24 years Sex: FEMALE : 2000 Associated Diagnoses: Sciatica of left side Author: Radha Gomez MD A History of Present Illness [...] 113.040 kg Body Mass Index 39.11 kg/m2 [place] Body Weight Calculated 61.437 kg BSA Measured 2.31 m2 General: Alert and oriented, No acute distress. Musculoskeletal: Positive point tenderness over the left gluteal region as compared to the right. Positive straight leg raise. Positive piriformis muscle sign with external rotation of the hip with adduction towards the opposite shoulder.. Impression and Plan Diagnosis Sciatica of left side (LQY10-BV M54.32). Plan: Discussed with patient stretches she can do to help with her sciatica. They were demonstrated in the office. Will hold off on any steroids.. Orders Orders Evaluation and Management: [id number] Office visit - established pt, Level 3 (Order): 06/01/2024 13:28 EDT, Qty: 1, Sciatica of left side. [Electronically Signed on: 06/01/2024 13:56 EDT] Radha Gomez MD [Verified on: 06/01/2024 13:56 EDT] Radha Gomez MD Normal [facility] .Auto Diff 1on 05-28-2024 Auto [place] % 5 % Normal 09-16 [facility] Comment on above: Performed By: #### 1 [id number], [id number], [id number], [id number] #### [facility] (DEFAULT) [address] [place] [address] Baso Abs# 0.1 x10 Normal 0.0-0.2 [facility] Comment on above: Performed By: #### 1 [id number], [id number], [id number], [id number] #### [facility] (DEFAULT) [address] [place] [address] Basophils/100 WBC (Bld) 0.6 % Normal 0.2-2.0 [facility] Comment on above: Performed By: #### 1 [id number], [id number], [id number], [id number] #### [facility] (DEFAULT) [address] [place] [address] Eos Abs# 0.3 x10 Normal 0.0-0.4 [facility] Comment on above: Performed By: #### 1 [id number], [id number], [id number], [id number] #### [facility] (DEFAULT) [address] [place] [address] Eosinophils/100 WBC (Bld) 2.5 % Normal 0.9-4.0 [facility] Comment on above: Performed By: #### 1 [id number], [id number], [id number], [id number] #### [facility] (DEFAULT) [address] [place] [address] Lymph Abs# 3.6 x10 High 1.3-2.9 [facility] Comment on above: Performed By: #### 1 [id number], 7505276, 7675573, [id number] #### [facility] (DEFAULT) [address] [place] [address] Lymphocytes/100 WBC (Bld) 27 % Normal 14-48 [facility] Comment on above: Performed By: #### 1 [id number], [id number], 0255875, [id number] #### [facility] (DEFAULT) [address] [place] [address] [place] Abs# 0.7 x10 Normal 0.0-0.8 [facility] Comment on above: Performed By: #### 1 [id number], 7482783, 8889836, [id number] #### [facility] (DEFAULT) [address] [place] [address] Neut Abs# 8.4 x10 Normal 1.5-9.2 [facility] Comment on above: Performed By: #### 1 [id number], 7541579, [id number], [id number] #### [facility] (DEFAULT) [address] [place] [address] Neutrophils/100 WBC (Bld) 64 % Normal 44-88 [facility] Comment on above: Performed By: #### 1 [id number], 3647738, 3596207, [id number] #### [facility] (DEFAULT) [address] [place] [address] CBC w/ Auto Diffon 4 Man Diff? Auto Invalid Interpretation Code [facility] Comment on above: Performed By: #### 1 [id number], 5722417, [id number], [id number] #### [facility] (DEFAULT) [address] [place] [address] Erythrocyte distribution width (RBC) [Ratio] 13.6 % Normal 11.5-15.0 [facility] Comment on above: Performed By: #### 1 [id number], 6359743, 7479535, [id number] #### [facility] (DEFAULT) [address] [place] [address] Hematocrit (Bld) [Volume fraction] 42.0 % High 33.7-40.4 [facility] Comment on above: Performed By: #### 1 [id number], 3832349, 7459827, [id number] #### [facility] (DEFAULT) [address] [place] [address] Hemoglobin (Bld) [Mass/Vol] 13.8 g/dL Normal 11.3-15.9 [facility] Comment on above: Performed By: #### 1 [id number], 8428738, 2331705, [id number] #### [facility] (DEFAULT) [address] [place] [address] MCH (RBC) [Entitic mass] 28 pg Normal 24-34 [facility] Comment on above: Performed By: #### 1 [id number], 3311875, 7289898, [id number] #### [facility] (DEFAULT) [address] [place] [address] 13948 MCHC (RBC) [Mass/Vol] 33 g/dL Normal 26-37 [facility] Comment on above: Performed By: #### 1 [id number], 9402176, 8316600, [id number] #### [facility] (DEFAULT) [address] [place] [address] MCV (RBC) [Entitic vol] 86 fL Normal 81-100 [facility] Comment on above: Performed By: #### 1 [id number], 5590728, 3788574, [id number] #### [facility] (DEFAULT) [address] [place] [address] Platelet 352 x10 Normal 138-427 [facility] Comment on above: Performed By: #### 1 [id number], 7370789, 4093265, [id number] #### [facility] (DEFAULT) [address] [place] [address] Platelet mean volume (Bld) [Entitic vol] 7.8 fL Normal 6.3-10.2 [facility] Comment on above: Performed By: #### 1 [id number], 0193820, 7750948, [id number] #### [facility] (DEFAULT) [address] [place] [address] 64062 RBC 4.90 x10 Normal 3.70-5.30 [facility] Comment on above: Performed By: #### 1 [id number], 5267775, 9885042, [id number] #### [facility] (DEFAULT) [address] [place] [address] 20073 WBC 13.1 x10 High 3.5-10.5 [facility] Comment on above: Performed By: #### 1 [id number], 1349397, 3557883, [id number] #### [facility] (DEFAULT) [address] [place] [address] CMP Standardon 05-28-2024 eGFR Non AA >60 Invalid Interpretation Code [facility] Comment on above: Performed By: #### 1 [id number], 6278365, 0885575, [id number] #### [facility] (DEFAULT) [address] [place] [address]013 eGFR AA >60 Invalid Interpretation Code [facility] Comment on above: Performed By: #### 1 [id number], 2314656, 1557767, [id number] #### [facility] (DEFAULT) [address] [place] [address] 43012 Albumin [Mass/Vol] 4.4 g/dL Normal 3.5-5.0 [facility] Comment on above: Performed By: #### 1 [id number], 2352983, 2646725, [id number] #### [facility] (DEFAULT) [address] [place] [address] 91692 Albumin/Globulin [Mass ratio] 1.2 {ratio} Low 1.4-2.6 [facility] Comment on above: Performed By: #### 1 [id number], 9603707, 5584059, [id number] #### [facility] (DEFAULT) [address] [place] [address] 02144 Alk Phos 46 IU/L Normal 32-91 [facility] Comment on above: Performed By: #### 1 [id number], 1781854, 4979797, [id number] #### [facility] (DEFAULT) [address] [place] [address] 42699 ALT [Catalytic activity/Vol] 29.0 U/L Normal 14.0-54.0 [facility] Comment on above: Performed By: #### 1 [id number], 0474670, 7098032, [id number] #### [facility] (DEFAULT) [address] [place] [address] 49323 Anion gap [Moles/Vol] 11.4 mmol/L Normal 5.0-19.0 [facility] Comment on above: Performed By: #### 1 [id number], 3119775, 6562018, [id number] #### [facility] (DEFAULT) [address] [place] [address] 00167 AST [Catalytic activity/Vol] 30 U/L Normal 15-41 [facility] Comment on above: Performed By: #### 1 [id number], 3898880, 2138489, [id number] #### [facility] (DEFAULT) [address] [place] [address] 15427 Bili Total 0.4 mg/dL Normal 0.3-1.2 [facility] Comment on above: Performed By: #### 1 [id number], 8806538, 6102200, [id number] #### [facility] (DEFAULT) [address] [place] [address] 02320 Calcium [Mass/Vol] 8.9 mg/dL Normal 8.9-10.3 [facility] Comment on above: Performed By: #### 1 1139416, 3860126, 3476947, [id number] #### [facility] (DEFAULT) [address] [place] [address] 17387 Chloride [Moles/Vol] 104 mmol/L Normal 101-111 [facility] Comment on above: Performed By: #### 1 [id number], 0278106, 7602383, [id number] #### [facility] (DEFAULT) [address] [place] [address] 45084 CO2 [Moles/Vol] 20 mmol/L Low 21-32 [facility] Comment on above: Performed By: #### 1 3633727, 7179846, 8974631, [id number] #### [facility] (DEFAULT) [address] [place] [address] 07805 Creatinine [Mass/Vol] 0.66 mg/dL Normal 0.60-1.30 [facility] Comment on above: Performed By: #### 1 4482477, 6842271, 1258145, [id number] #### [facility] (DEFAULT) [address] [place] [address] 09779 Globulin (S) [Mass/Vol] 3.5 g/dL Normal 1.5-4.3 [facility] Comment on above: Performed By: #### 1 9286095, 8873734, 1201094, [id number] #### [facility] (DEFAULT) [address] [place] [address] 92639 Glucose [Mass/Vol] 100.0 mg/dL Normal 74.0-118.0 [facility] Comment on above: Performed By: #### 1 [id number], 6768588, 3894485, [id number] #### [facility] (DEFAULT) [address] [place] [address] 93825 Osmolality 263 mOsm/L Invalid Interpretation Code [facility] Comment on above: Performed By: #### 1 [id number], 4331882, 5882566, [id number] #### [facility] (DEFAULT) [address] [place] [address] 00563 Potassium [Moles/Vol] 3.4 mmol/L Low 3.6-5.1 [facility] Comment on above: Performed By: #### 1 1874671, 0096478, 9065039, [id number] #### [facility] (DEFAULT) [address] [place] [address] 34268 Protein [Mass/Vol] 7.9 g/dL Normal 6.5-8.1 [facility] Comment on above: Performed By: #### 1 5802991, 1967410, 5777616, [id number] #### [facility] (DEFAULT) [address] [place] [address] 38721 Sodium [Moles/Vol] 132.0 mmol/L Low 136.0-144.0 [facility] Comment on above: Performed By: #### 1 9988350, 4923940, 7722201, [id number] #### [facility] (DEFAULT) [address] [place] [address] 56776 Urea nitrogen [Mass/Vol] 9 mg/dL Normal 8-26 [facility] Comment on above: Performed By: #### 1 [id number], 5035804, 3833429, [id number] #### [facility] (DEFAULT) [address] [place] [address] 22719 Urea nitrogen/Creatinine [Mass ratio] 13.6 mg/mg Normal 4.6-16.2 [facility] Comment on above: Performed By: #### 1 8634179, 5183580, 9539338, [id number] #### [facility] (DEFAULT) [address] [place] [address] 89266 ED Clinical Summaryon 2023 ED Clinical Summary [facility] - Emergency Department [address] [place] [address]797 ED Clinical Summary PERSON INFORMATION Name: SHERLY ASTUDILLO Age: 24 Years Sex: FEMALE : 2000 MRN: Acct#: Visit Reason: Back pain; Abdominal pain - ; ABD PAIN LT SIDE, LT LEG NUMB Arrival: 05/28/2024 14:14:57 Discharge: 05/28/2024 17:55:00 LOS: 000 03:41 Check In: 05/28/2024 14:14:57 Checkout:05/28/2024 17:55:00 Address: [address] [place] [address] PCP: Radha Gomez MD PROVIDER INFORMATION Provider Role Assigned [...] Home PATIENT EDUCATION INFORMATION Instructions: Muscle Strain, [id number]-kc-[id number]; Sciatica, Igvl-np-[id number]; Back Exercises, Yveu-xo-Tclx Follow-Up: With: Address: When: Jason MCNEAL, Radha Santo [address] [place] [address] Within 3 to 5 days DIAGNOSIS: 1:6 weeks gestation of ; 2:Low back pain with left-sided sciatica; 3:Pain in the side Patient Understands: Yes - Patient/family/caregive r verbalizes understanding of instructions given Comment: Normal [facility] ED Clinical Summary [facility] ? Urgent Care [address] [place] [address] 15667 Clinical Summary PERSON INFORMATION Name: SHERLY ASTUDILLO Age: 24 Years Sex: FEMALE : 2000 MRN: Acct#: Visit Reason: UC - Abdominal Pain; LT SIDE PAIN, LEG PAIN Arrival: 05/28/2024 14:07:02 Discharge: 05/28/2024 14:10:00 LOS: 000 00:03 Check In: 05/28/2024 14:07:02 Checkout: 05/28/2024 14:10:00 Address: [address] [place] [address] PCP: Radha Gomez MD PROVIDER INFORMATION Provider Role Assigned [...] left flank pain; Currently Patient Understands: Comment: [facility] ED Note-Nursingon 05-28-2024 ED Note-Nursing Head Cd Reactor Operator at bedside wh ile US was performed. pt tolerated well [facility] ED Note-Nursing Pt ambulatory back t [...] Pt is A/Ox4 call light within reach [facility] ED Patient Summaryon 024 ED Patient Summary [facility] - Emergency Department [address] [place], [place] [id number] PATIENT DISCHARGE INSTRUCTIONS Patient Information Name: SHERLY ASTUDILLO Age: 24 Years Date of : 2000 [facility]: [id number] Reason For Visit: Back pain; Abdominal pain - ; ABD PAIN LT SIDE, LT LEG NUMB Arrival Time: 05/28/2024 14:14:57 Primary Care Physician: Radha Gomez MD Attending Physician: Pam Gao MD Comment: Visit Diagnosis: Diagnoses This Visit 6 weeks gestation of (Z3A.01) Abdominal pain - ([id number]) Back pain ([id number]) Low back pain with left-sided sciatica (M54.42) Pain in the side (R10.9) The Pharmacy at [facility] is open Tuesday through Tuesday from [...] alcohol and/or drug addiction problems; contact the [facility] 28/03 Crisis Hotline -Text 1EKTR vb 466963. If you received any narcotics, sedation, or [...] legal documents With: Address: When: Jason MCNEAL, Radha Santo [address] [place] [address]52 Within 3 to 5 days Medication Information: The exam and treatment you received today in the [facility] Emergency Department were for an urgent problem and are not intended as complete care. It is important for you to follow up with a doctor, nurse practitioner, or physician?s registered nurse first assistant for ongoing care. If your symptoms [...] so we can reach you if necessary. [facility] Emergency Department has provided you with a complete list of medications post discharge. Please inform your primary care nurse practitioner/provider of your visit and for further instruction [...] can happen (more content not included)... Normal [facility] ED Patient Summary [facility] ? Urgent Care [address] [place] [address] PATIENT DISCHARGE INSTRUCTIONS Patient Information Name: SHERLY ASTUDILLO Age: 24 Years Date of : 2000 [facility]: [id number] Reason For Visit: UC - Abdominal Pain; LT SIDE PAIN, LEG PAIN Arrival Time: 05/28/2024 14:07:02 Primary Care Physician: Radha Gomez MD Attending Physician: Spenser Fang Comment: Patient Education Medication Information: The exam and treatment you received today in the [facility] Emergency Department were for an urgent problem and are not intended as complete care. It is important for you to follow up with a doctor, nurse practitioner, or physician?s registered nurse first assistant for ongoing care. If your symptoms [...] so we can reach you if necessary. [facility] Emergency Department has provided you with a complete list of medications post discharge. Please inform your primary care nurse practitioner/provider of your visit and for further instruction [...] (R10.9) Currently (Z34.90) UC - Abdominal Pain ([id number]) If you received any narcotics, sedation, or [...] for Disease Control and Prevention May 2014 Normal [facility] Lactic Acidon 05-28-2024 Lactic Acid 9.1 mg/dL Normal 4.5-19.8 [facility] Comment on above: Performed By: #### 2 [id number] #### [facility] (DEFAULT) [address] [place] [address] UA Zfclp0ny 05-28-2024 UA Bacteria Trace Normal [facility] Comment on above: Order Comment: Urina lysis Microscopic order added on by [employer] Expert Rules system. Performed By: #### 3 [id number] #### [facility] (DEFAULT) [address] [place] [address] UA RBC None Seen [facility] Comment on above: Order Comment: Urina lysis Microscopic order added on by [employer] Rules system. Performed By: #### 3 [id number] #### [facility] (DEFAULT) [address] [place] [address] UA Squam Epi Moderate [facility] Comment on above: Order Comment: Urina lysis Microscopic order added on by [employer] Rules system. Performed By: #### 3 [id number] #### [facility] (DEFAULT) [address] [place] [address] UA WBC 0-2 [facility] Comment on above: Order Comment: Urina lysis Microscopic order added on by [employer] Expert Rules system. Performed By: #### 3 [id number] #### [facility] (DEFAULT) [address] [place] [address] UA w Culture if Ind Standard on 05-28-2024 Breakpoint UA [facility] Comment on above: Performed By: #### 3 [id number] #### [facility] (DEFAULT) [address] [place] [address] Color (U) Straw [facility] Comment on above: Performed By: #### 3 [id number] #### [facility] (DEFAULT) [address] [place] [address] Culture? Not Indicated Invalid Interpretation Code [facility] Comment on above: Result Comment: Resu lt created by rule GL_MAGR_ADD_UA_CULT Result created by rule GL_MAGR_ADD_UA_CULT Performed By: #### 3 [id number] #### [facility] (DEFAULT) [address] [place] [address] Glucose (U) [Mass/Vol] Negative [facility] Comment on above: Performed By: #### 3 [id number] #### [facility] (DEFAULT) [address] [place] [address] Ketones Ql (U) Negative Normal [facility] Comment on above: Performed By: #### 3 [id number] #### [facility] (DEFAULT) [address] [place] [address] Micro? Indicated Invalid Interpretation Code [facility] Comment on above: Result Comment: Resu lt created by rule GL_MAGR_ADD_UA_MICRO Performed By: #### 3 [id number] #### [facility] (DEFAULT) [address] [place] [address] UA Bilirubin Negative Normal [facility] Comment on above: Performed By: #### 3 [id number] #### [facility] (DEFAULT) [address] [place] [address] UA Blood Negative Normal [facility] Comment on above: Performed By: #### 3 [id number] #### [facility] (DEFAULT) [address] [place] [address] UA Clarity SL CLOUDY Abnormal CLEAR [facility] Comment on above: Performed By: #### 3 [id number] #### [facility] (DEFAULT) [address] [place] [address] UA Leuk Est SMALL Abnormal NEGATIVE [facility] Comment on above: Performed By: #### 3 [id number] #### [facility] (DEFAULT) [address] [place] [address] UA Nitrite Negative Normal [facility] Comment on above: Performed By: #### 3 [id number] #### [facility] (DEFAULT) [address] [place] [address] UA pH 6.0 Normal 5-8 [facility] Comment on above: Performed By: #### 3 [id number] #### [facility] (DEFAULT) [address] [place] [address] UA Protein Negative Normal NEGATIVE [facility] Comment on above: Performed By: #### 3 [id number] #### [facility] (DEFAULT) [address] [place] [address] UA Spec Grav 1.010 Normal 1.001-1.035 [facility] Comment on above: Performed By: #### 3 [id number] #### [facility] (DEFAULT) [address] [place] [address] UA Urobilinogen 0.2 mg/dL Normal 0.2-1.0 [facility] Comment on above: Performed By: #### 3 [id number] #### [facility] (DEFAULT) [address] [place] [address] Urine Source Clean Catch [facility] Comment on above: Performed By: #### 3 [id number] #### [facility] (DEFAULT) [address] [place] [address] US 1st Trimesteron 05-28-2024 US 1st Trimester [...] Right ovary not visualized. Final Dictated by: Radha Yeh MD Dictated DT/TM: 05/28/24 7:23 Signed (Electronic Signature): Radha Yeh MD 05/28/24 7:34 pm Technologist: PM [facility] US Transvaginalon 05-28-2024 US Transvaginal [...] Right ovary not visualized. Final Dictated by: Radha Yeh MD Dictated DT/TM: 05/28/24 7:23 Signed (Electronic Signature): Radha Yeh MD 05/28/24 7:34 pm Technologist: PM [facility] Urgent Care Note- Provideron 05-28-2024 [...] History Medical history: Resolved Ankle fracture, left ([id number]): Resolved. 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 Surgical history: Cholecystectomy (52438284).. Family history: Anxiety Father Sister Diabetes mellitus [...] Substance use: Current Comment: Gillian - 11/19/2023 09:Marisela Morfin RN Tobacco 09/01/2021 [...] Diagnosis Abdominal pain, acute, left upper quadrant (JBL68-ZB R10.12, Discharge, Medical) Acute left flank pain (ZVV27-AG R10.9, Discharge, Medical) Currently (WZN38-SP Z34.90, Discharge, Medical) Plan Condition: Stable, Guarded. Disposition: Discharged: time 05/28/2024 14:15:00. Follow up with: Radha Gomez Pt seen by provider at triage [...] on: 05/28/2024 14:16 EDT] Spenser Fang Normal [facility] hCG Quantitativeon hCG Quantitative 24673.0 mIU/mL High 0.0-0.6 [facility] Comment on above: Result Comment: Post -Menopausal Reference Range is: 0.1-11.6 mIU/mL Performed By: #### 1 [id number] ####[facility] (DEFAULT)[address] [place] [address] HCG ( test) Ql (U)o n 05-08-2024 Interpretation and review of laboratory results Abnormal [facility] Preg Test, Ur Positive [facility] Progress Noteson 04-24-2024 [employer] Authentication Interface Message Text Attestation signed by [...] as documented in the resident's note. Kenya Richter, JACKLYNS OMFS PATIENT VISIT CHIEF COMPLAINT: Toothache and Mark Teeth HISTORY OF PRESENT ILLNESS: 24-year-old female [...] canal DIAGNOSIS: Abnormal tooth eruption (Primary Diagnosis) [[id number]] Impacted third molar tooth [[id number]] Caries, Impacted wisdom teeth, and Retained dental root ASSESSMENT: #1 Caries #16 Caries #17 and #32, Partial bony Impaction with pericoronitis PLAN: Surgical extractions #'s 17, 32, Extractions #'s 1, 16, and with local anesthesia Pavan Lee DMD, MD Normal [employer] Employee Authentication Interface Message Text Normal [employer] Coding Summaryon 03-28-2024 Coding Summary HTMLBase 64 PhnmjhpwWOs4vDo+PGhlYWQ +WC7HWYNhF32mbYOpmC2fW4 NMTElOSywgQVBQTElOSyIgb dTxDF8yvVGdYTSw IC8+IV2pPLSjQarhnMGsr6M 0hAW3T99tmh9gYDyfdUL9RN KfWuTtgcxfy8xthZh2LNwsF mluOyBt SRUrrP62ALW7jZ58Lt16bGM noNStf1xgfCe2YnElEMRxCP A4dQcjINqli7UkTAQnS21ob KXci8K2 QCLqpIpdoOUaHjImzUO3nU0 vWXnmrznqt4pcazddGci1kk 90dOEcb7A7xGX2S1MckaE5W GJvbGQg XtyftWLJkR5rffnnd2jvmdj gIlYhSWZwOKn5JSw1KELvrI zyGmSpYP28XPF9KSXhzdWtX 2FsLWFs nOnpVpO0b8V8Gd5KR1JZVww uQ3DSFFAZXNypqVY+PC90cj 07M0GePfwwHhf2MIOqHXF7y BS9sA6a WJMjTHhls6B4jRS3L8DangT udn2ub7ofBDHmRNjaC29pjW Odb3P6DEZndEZ7TBXcpEhsR iBzaG93 Oyc+HHGztPnip0MtMejcv7r bv0yvyEl6WtzrTWFbtaEevS pxPOQ5z0AcDp8iCYCtfVQ4v BM3zW9m RnOlXrC7VCnwY809RjAncML uJsbhB42mQ9OlzZN+PHRyPj y9ZXHrlBmdPC2rP5JxGJRrm mctbGVm tEgqMY9yRMVbkjrsJLLhoZ0 uVPOvM7v7RrEhCdG0QXisG9 GeFIEqqfcaPz49tK4oFfWqF eD2EVea D9HoffG5BGEilQIjUYcaXJH 7F69um3C5TNPxPSYsDCA5kW F4yG9gdDmuukbedQZjpLiap mVydGlj IWniNFuhX769BIKysXkoOgI vZGluZyBEYXRlOiAgMDcvMj QvMjAyNDwvdGQ+PUXcTZJ6o WxlPSAn aCJuUFijEa8heKyfhSheKI1 uLHYhrltcKTUnfP6bTNKsuU MvtKyhDF1tTANiazrou742L iAxMHB0 AGWslJKwD7AeiI9fSjEeLFG jBELxF5CmzXPdDSduU346AN ukNbX1DRRxgkOaA9BzEXJjt WduOiB0 f0B3Fm3Ko0ZiganeI4LafHK oRkZxXhygZDx6X9SwLrboiJ I+EM80UEIdCE63HZl7NCT0r WxlPSdi UEMnX1ZifK4sPbVqNOJlVDH kOyc+PHRhYmxlIHdpZHRoPS obUWPkNePrwEalSJ9xVd3rF GVyLWNv lRzizGXdLtTvc9bdVQOlXVd vUT5paZemJ8XjqMQ1RDUci9 l9Jh40H66pV0ZxnQI+PGNvb KG2yPP9 sO9lUoJkIvL0ZEbaS235UcN rbOPgRoraa1qpc1wqwTs7Nt M6PJGtfrMifYdcINI3m9AeL y85F99l IHdpZHRoPSIxNSUiIHZhbGl big5cnL7gIw5+HOEuiLE0oV I0wW5lLpGdNgZ7TCvdI124U nRvcCIv Sutbt5bty6fpqJd0LfWfPFS iciIzzIvmYSW8v1LsUz02A7 PcnRdbg0DhEfj2kp63mYUoi 9U9oCT3 H4BnWPYvmjxewQZorOefTK7 hCLTtxjaxUJNsbB7aTJCpE6 x2HoYaEhB4RKgvH9LoocY1I GJvbGQg WCMkdCXLeS2cfcjxe3lyxdz vNhNsCTWsPCa6HFu5OGQdbC jyMkEpHME5PtU4MNJ3pGQhr Z8lmZga njpvsE4hRqj+ANX8lRFgyFG VCG8fRxqxzBP+UGQuQMH6xR ybXLsmOJMkhJ1mXOSeV1p7I iAwLjA1 JYgvX2GnroM9WBLffGTvSPY ryLAYfH1adxrns1ktelsrDu UtLHBoBOi5KBz4ATLdzAokQ iBsZWZ0 BbA6EUW6cAFptM2gbFryhak duT6qVqs+ZasmoLebIAR6UH e1P1HyBzm2EHNxgRigUO3nl GFkZGlu Ke7coCvdlSmcUD5ePITybbu tu778XtXah1heUAYolQJaIS zdJHX7K76qv5E8FXTzQFUfY IG4bIQ5 bW5saJvavvdlzCZvpUtirgK ekFwaRCvoOFjoO653CWGizA zjTlLoFWo5F9IaLol6WBKhj HsnLR1d dUAiSImsFj6krVgbfWaaQP2 cHVNnfovsw004OmNek4uwBV LhhUApAGueCNM6H78zz8K0P CMwMDAw COY3lBR4bN3naDunwqdikLU mdDsgdmVydGljYWwtYWxpZ2 26PDVxiIqgZpIejZu7I3QlL rk8CWQt hAzdHF8xmLRnDUeoPm8ouNu luLrwIZ0iOCRdqeayp964Bs Tbn5leXGBttZLoTKjxGBX3H 64yn4P5 PBRjTECyNOY0iXS8lC9wmFz nbjogbGVmdDsgdmVydGljYW kcYTdaC280AEVrdEohHtBca GllbnQg FSkwPPr2E2HkHlxewHB+PC9 9HDCcID46rIMjiEKdj0tmeF k9VaBbRNPrGKO9lWzoNJvto 3JkZXIt C36lhQObk7R1IMFvfCctuHQ dSnRfkKL8tM6cFNqitotqk5 oxsnrkJkihv6kfgt38hB11Q 29sIHdp ZHRoPSIzMCUiIHZhbGlnbj0 vpZ9bYj9+KOObyIB1zXE8vN 0jNLOpJzZ2UJjhS185CyThb CIvPjxj v2umj7kqwZz3NvM6IDTtypW yqKnuMNZ0k0RpYm61P93yMY dpZHRoPSIyMCUiIHZhbGlnb s3hdO3o Ii8+EPBqeHB5mZZ8gV0jXvY mReG3DNipF113RkVywMTjPg zuV03xM4YasAC+YHBdVra2H CBzdHls JQ3jrAOgOFzgSw2oKXC6YsQ wSbHiAGcfY3ZkXECnvuxpqi tdaUA3FQXdTQEmqO38Pr2vq DogMTBw sQFUoR2krbehg0sfhabzJaI fFLFmVGo6BQv5FMFosNswSa UmDNJ7OkO5JSL7wFPiwM1ih Glnbjog cC9oU7EwTDZcnvnqZn76qM8 zCqYiFhD1XXxhYql+Q1JBV0 ZPUkQsIEJSRUFOTkUgTUlDS EVMTEU8 A5InBlr0LKIyvNsjUJ4sjEB gACjwOj7wpDochMlyGP6sNP ConcezWHIpaG2sIZVttGHew CzbYJ9h OIKopuuht647YtEtEVQ1AOS rxEJoR3QilO5eQjApHELoYF SoD3VnvTBfVWpvO171SXccQ gU0IQLx lcUmZ5JzQSFokYphKwB6c2P 2Mc9lQr2gUB9nPLv7ON26BM 41aLYhe6B3uJF2C4XuZSAyy mctcmln qUO5EIYoWYWztV67aKCtOTg sVf0ae1U1s766ZEHhCUHczK 41Ue2gbNvoSXKzyZAEsN2td mspa0pp egwxEvKnHCRqRWp6ISa5UZN tmIywZmDgKBD9OlD7FEI7rM OtwD1ivFneingnvH6qUjk+M jYgWWVh rsL9W3FcEfw8AVSlmUxiZY3 gbJAkFSmvLn0roSdhjEhoWB 2dLJHtvgbcGWKxsI1fWEPgi HRvbTog IF1fHYEsdsyye208BdOtXOF 5LWQveIQzV8PwwD6iUeMsHZ NaXLNzO4PscIRyDPmrR807J GxlZnQ7 BGVjmsAxE3SiKMVuiYqgBjF 1s9H7Mo0XEP9OPZD3H2PsWp d6KLDpvGyhCC1jzOGyBMmcF a0huQnl aKwuAQ2wETNyhxplNLIpdU7 bCILulNZhnBymUC5sHKShzy hxi073WdRbPVO6ATTjqSFpR 3MnjS3s RcVyWXFgPVCjS8EwxRGeKDv cY313GWkcGgH6RGIvdjCuO1 UeABBvoIwsKqD8e8L3Du7MM DwvdGQ+ OL18es52B8QeNmpxXpr2BUM iHZZ2wDN7pT6bEMDcFHesr7 E5dBC2F8YemaQrou3lu7wuK XBzZTog Y17cmNUgt7P0OQOnqBA5ELA phAhhRfNvnO28Mso+PGNvbG qco1CjRtzno0qqs4mgaMs3X jMwJSIg ufRflPfpBLY4u4EtQy84S40 sIHdpZHRoPSIzMCUiIHZhbG bwix3zyH8wBd1+DSWkrCG8z RC8kK9k ZwJhTlX3FNseZ612ZwBacPN eKjkoa8rvj1ktoKu5JkQzZD UpebUlbGjiOIR7n8QkGs66T 2NvbGdy d0CqCjj3xc87lZIjk1T2gAT 0W1FwWVQvcsblsUBdqVsdSD 2rTHFslbsmREOyxV3xFZTgF 6u2HrSq LgI2AAuwX1HkvbL4RKTkqVP eQWRpwGXRzO8kmwjxh6rljc ruBpEkFBJsXTh9ZIw9LNIod WduOiBs KHS9CdA8YGS0dLJjfU4tkSy qthdgkI4lQkc+NRq2u3wgxM DyOZ1dnLF9HO86ZF75bEHnq 8Y9nFZ2 G5DjTNBkrtolfujltOG4XWL gMQVlaX16Hs4idEnzAq6hJX GkBXK9CZLhrHWiM2GttD9cY iAjMDAw SZOxI3BqiFGsGWtnU550PTf pQdH1SPDmzmHyL9WtHFAzfH hrSwC2l0O2Rn1GZS53AX82Y X35kYCy b9Y4gMT6W2HdFRQmopriuth uuUM8FLCaDAMrbC28Il1qlG tmRy1fSESnVYK3QVRrnFWgZ 4QijM2z YyAlBVTwFMFcC4HlxTMoIJs pF079ZHtlBfQ3IEZjalIhY4 LvNWGkoHfeJxT6z5A5Tn1UV s51EB76 FX66oYGtm1T9sVQ8B6UyOPS hugdsmqqepNK0XMXrAQTknK 03Dp1jdTwjMj7eXURvSHN0Q FRpbWVz B3IyxF6mRlGuYAZnBAXwV7H mpIKkVQphR387HTbaPoP7GK QapkEeR2FdOUMbhNdvVpD9f 4V4Li9U OTuwzqj3D6ZeEeqfbSD+PC9 2YEGjWI13qYPkcWExo7olmV a4HvBiDYCbRDV1jPvoERajz 3JkZXIt Y29 (more content not included)... [facility] Progesterone LCon 03-15-2024 Progesterone LC 1.4 ng/mL Invalid Interpretation Code [facility] Comment on above: Result Comment: Foll icular phase 0.1 - 0.9 Luteal phase 1.8 - 23.9 Ovulation phase 0.1 - 12.0 First trimester 11.0 - 44.3 Second trimester 25.4 - 83.3 Third trimester 58.7 - 214.0 Postmenopausal 0.0 - 0.1 Performed At: [facility] [address] [id number] Sarah Beal PhD Ph:[id number] Performed By: #### 3 [id number] ####[facility] (DEFAULT)[address] [place] [address] Provider Orderson 03-14-2024 Provider Orders [id number] TGTIFF [facility] Coding Summaryon 02-20-2024 Coding Summary [employer]Base 64 KvflqnkvLZp7lDa+PGhlYWQ +JW3TVYFtQ09qsVTcjZ4uY5 NMTElOSywgQVBQTElOSyIgb qJyNF4feFZqOBDr IC8+VR2yDPSoAyzmvBLcq2K 0nNQ2Y40qjv8uUNahvKU2RB NxFgWswbawf0sxePs9BTeaB mluOyBt JDEzbQ74RWC0aW54Ui75jHR nrVCrx8edwSt8NtOgDQCnRV N4jJclSFvny1DxKSYeU65xa HFed7C2 OSCilQroyTJvVsQbuCH0xF7 oCVmokpowg4seuultAcf2xj 31eDOyg8H2cQA1E7KzdsF3C GJvbGQg LxqrqRRKhR6grcxtr3alvrw vYvJsHYHfVQi7WWg7FDDgaM biDrTuDH05HLJ4UNDeywBlM 2FsLWFs fFltAsY6l6X0Dw6CI1XOCbs cU3HFNEHRVJlfmVJ+PC90cj 54K6NxUgxtHay5EUQlIFN3k XW6tB4d LYZoTSvxl2O7fHZ4S9LsovA dan7ub5cmLFOxWNxvI09hjK Tjk5T9DLVbzTS4FCNtvJglL iBzaG93 Oyc+SIMdoMuzf8WcGdbjk5a ty4zgpWs4XsnhSQUzweUuzW paEVM5j3YdEh1yGGLrwJH8u YN5jU3x LmGmVzV9HRneS004RtUugIW eYjrtS19eP0IvgWP+PHRyPj w9SRTklPlqHV0sN3ZbMEFdf mctbGVm bTfsKW5jMGGoldwjSRRoaQ9 mVHDuD0x1HrJlIgR8HHdkR4 PaNYWnxxspHo26iX0uSoXbP pZ4AVzq K2QxixN5ITNfhVQaZXxaQSY 3B67nq9L2OBTaLVQsRSL3eL I9uI6nsRoarpjijXXpkRcma mVydGlj GMiwVZikF121HTHhjKayEeH vZGluZyBEYXRlOiAgMDYvMT cvMjAyNDwvdGQ+XKHpCHB4o WxlPSAn uGMeMOpfPk9qbBcdvAouWI3 jTXYoulkpOFTquS9nHEUqgK QwmJrdIV9xKGBpbmxbg430R iAxMHB0 QPPutRGbU8OftT0jKxUdGFS eNCUqG4RxwKMyGSdbJ502ZS urFvQ3CEGguiRvV1DtZOZzh WduOiB0 r6X3Sz9Mh2CwxjhdX8OllRV cUoDeZkyiNIu3H0YhJhueaJ I+WE87TYFqJG20FDs9OHO3d WxlPSdi RQFpG9NmjQ8aGoJuAFQfCRS kOyc+PHRhYmxlIHdpZHRoPS emDFVzZtQqsNaxPH7gMe0pF GVyLWNv pXfkqKYmSfZnw9lgPOXeWGm yIT8hgWdxX9DwaIO2MRUum9 d5Ml91Y89hZ8SlePS+PGNvb OG9cEL2 cU5fEjZoScA5TYvbJ332VeQ hoTUkHawyx2qgr6uiyEo7Lv P9XCSsqjWkyMdoNDS8e8FaY m19F93q IHdpZHRoPSIxNSUiIHZhbGl qpa3xtD0cIw2+NAYhaOQ2wH C5zU2tGiGfSzO6DVfoE406A nRvcCIv Zhhmj5tsm6kgfYm8MmEwUPB avkAoyFsjOKG4d3MiSn30E8 BvtNwkd7EhTdb5wn02rSPvq 7X9dPQ1 V1NtPIZtzyullMOnqTpvMJ8 jVTKpbozeLUDgdP4aOSNbL5 l3VmWpYlE5EMokG5MpyaL7X GJvbGQg ZEMxyRGYiC5tdjshr7ewjqu wFwLoOFErOHa1WFe9TDJfwH xsPzTcUXW5AaG0MQL0zUGnz O7boEbs jabjwM2gSgb+PKU9zMIurOM GIP1fVqcqvGU+EGCiXFU2qN rcFEveFVPnsE8yTQWsO6k5M iAwLjA1 VOxvQ1EedwQ0KPFyyGKkQHX oxOGQnO3pldbnc9iruudaRw OgXZCsJPv9AFy2ZDIswEsdA iBsZWZ0 NfK1MGT3bFYrpF0hsDkbthh alM2eDhh+ApxbuIrtUUL3JI j6R0BpVma4MVNyeCwpPQ8zj GFkZGlu Wa6twQzgsRcsPK0dWKWlwug py872DdUgj0bvDORojNQoBT qvHYK2A84jv7T8SEPbIHZsF ZY3cKS6 oQ5gzOrjbrizaUDssUqlxkY vtHfrRFehCJuoH493JZZsqU dfZsWhAXn6Q9IoRyh3RYKpc UglOE9q vAFbPUfvKx4slQttdNshBO4 aZFNiydfxu106KfPnu8yrLK VirRIqAQtiPTA4B41ex1O4Q CMwMDAw OHR7oVH5kD3wsQitggrphBT mdDsgdmVydGljYWwtYWxpZ2 99VAPikAuaFnFjmRk1D6UuZ ib2THDg vJulFL5wyIYiIJvgIh5ccFk ydRzcXT5nJKTbnqvqn191Zt Mnp8bvYRWgaRPfDCacACZ5E 50ry5S3 ZIGkKKKiMSV4dTX4rW5tyTe nbjogbGVmdDsgdmVydGljYW oiAXmwH366SVOzuQupCoHtr GllbnQg LFdsPUq2I6RrHjsfeAD+PC9 1BKCrOU06bENjjVGjb5jjaA j6OqWgZSDiJTB2kXesUOgey 3JkZXIt J97duOLvf3G0COXdmSfmgUZ fFmOixPT6rL2yGEjzhcepq8 ghfiofMbtqy2cfuc69lV74J 29sIHdp ZHRoPSIzMCUiIHZhbGlnbj0 ncM4iZe4+QVZjnGK1uHB2dC 2aWMDtGkQ9ZTtaF526BpRnu CIvPjxj e4atc4auaPs7FjL0YDEdkxS wpYbvPHC3h2FgKe44L11cXA dpZHRoPSIyMCUiIHZhbGlnb s0lhR1x Ii8+NLXxwSL2mBG5cI2lKmT pKgJ7FEsxF597SvJuvLWbQl dyC88tQ9WkdKT+NRXxQnj8Y CBzdHls SM7nvYBfIBhaSa3oXIY9VlR pSyGuUOtuO9HsBRQyehdmap pdeXN4ZROcZUXniF07Ll1fu DogMTBw fTAJuI9jngqja5xkjagjLxP mZZNgNLs2KSb7YBKxeEcsOm KcRBK9LqH5MUP4zUUfwD9dq Glnbjog uX2nN3WcDXWxbcdxWi13oA7 cObMsZqH9WHeaIut+Q1JBV0 ZPUkQsIEJSRUFOTkUgTUlDS EVMTEU8 Y9GqOeb6RVLncYhuUV2rdTL bZBsgId4ylBiodVkvSW8sMI UdxwnhCUTkkB4dXOVdaVTkl SdtDM2l LNGewbwiw668FlMwEQA7XZN bmUAbT5KnmF9fSyPyTRPbGO IrB3ZajDWiZMjsU073BNrdP dA6HIBw obMbR7YsMQLbwIabJbL9j0H 7Yj7wFu4kFZ2aEEk1SL04YN 40dWBwr0S4nSZ2G1HdQSDyj mctcmln vMG5QDSkWMBtvS48hWAhUWf bKb3nf4Y4k204UFGtXQPpvG 06Ph9sbKdqVZQrpQUQxO3we bfpc7xx iqzgDwIsVFWqXYg4QTj8IBJ bmJovHgFlKEL3LvK5NZT2zF ShfG0thQyjtruusQ1nExt+M jUgWWVh jjY5V6XmWbj6KRZjlPbwHG5 taOZxOCzyRz5ntJqokImjFD 1sEDVtdirjCPMspS6kWEGtx HRvbTog XJ9gSQSsykwoa717LdUdCVT 2YFVhwTEgC4VbjG8aIjMyRU VpIKVvR3FaeMUfQIgaH240W GxlZnQ7 ITTchyIxW5OmJJZcjPqcCkP 8i9J2Kc0SHO4AKCH6F8GbJr n9MZJraNokWK4seGRoDAuuX n1hfHuw gCufHA7xCETfbhtgJHKqaI1 hCGPcpCXtrYeiJU6dOJEuds juz998XvSoDXU8UXEmmQXwD 4KrpY8d PyVzOUMfTMKlA3LenDNeRCk gF539NZciReW3AHXpxtGjW5 ZoCGLzqPhuTzQ3w0S2Cm1ZJ DwvdGQ+ DM79nh01E5ZgHibcQcr9EPI jJPZ1bIJ7zQ4eIMFzRYvqu8 U1jOD6F4QbrhDpyj0df6fxW XBzZTog K30rrSBsq7U2IHFcaQQ5HSZ zbRxoPuAoyT09Vog+PGNvbG usz5NkZaffy1mnw3dafJy3Q jMwJSIg cpUgqZeeMNJ3v6ByDa13H87 sIHdpZHRoPSIzMCUiIHZhbG sxwo3xyB7iJg5+SVZrkTD4h JL6kX0r FdLzEeG8TCxoX369CrCowYQ aRqrtp1nyt2lgyOl6HtGnDT FjxsYerKjpABU0n1WlRi91F 2NvbGdy e3WjZgg3bu06bBFyo9O6kPY 8T8PfQNSlzhrvvYNmzNntJT 2kMDTxgizdHUCxdP7eUEAuU 3v5PzEw PpC2DGieJ4HcakM9WNUouFE aUXQwnKLNpB3oimngf8gewu bsKsHkSOUpQIl3WEy2ZEFeq WduOiBs JMA5QuR8JHC6lNNlcP8gyMj gxoxscY7hVdp+ULn6i7gqmD ZiPV3fvNK8KZ26QR37sVBoi 5G9uOF8 C6MuAMXlfvzldlqjmCQ5VVF gIRQngZ35Sz7mfUukLg4dBN TxZTN1INVkdGNmJ3YjsT1jW iAjMDAw YBTqL5TmkYZyMRqaD398ZHz lVwY6RYJubrPjV9QbNYGztZ woCmE3t8D0Gy0DMP99SL94M J78sPYy k8P6cTX2K4PgKVMxhxecjux cpLM7FFQhVWXbiI71Nm6axR vmHg8vTLFtJCH1DADzmEYxW 1MaoU9b UtLnSSGuEDQrM3EtdCVwIEz aJ581PHkyRqY6ELTojlJiW6 MaOVUtcBbkIuA9d3J5Vu6RS k14NE66 QC13gHGll6N2dOO5W9BrUWX shuzltdppnFL6MGOhUWGqkZ 81Mj9pbSrmQj9xHCMtGYI1B FRpbWVz G2AaeE9zUgXzDBFpRHCjM2C zsCOsIIwkU142GXhqBqP1IV TcfvXxL1EtSOOhxGqwHfF3b 3S2Nu4G SXuafnb3X1TmQskumZD+PC9 2AKDcWQ42pIEpqDWmu4zmbL g9OhXjHTJbGRD2eEcvXMtav 3JkZXIt Y29 (more content not included)... Normal [facility] Progesterone LCon 02-15-2024 Progesterone LC 18.8 ng/mL Invalid Interpretation Code [facility] Comment on above: Result Comment: Foll icular phase 0.1 - 0.9 Luteal phase 1.8 - 23.9 Ovulation phase 0.1 - 12.0 First trimester 11.0 - 44.3 Second trimester 25.4 - 83.3 Third trimester 58.7 - 214.0 Postmenopausal 0.0 - 0.1 Performed At: [facility] [address], [place] [id number] Sarah Beal PhD Ph:[phone] Performed By: #### [id number] #### [facility] (DEFAULT) [address] [place] [id number] Provider Orderson 02-14-2024 Provider Orders [id number] TGTIFF Normal [facility] Coding Summaryon 01-19-2024 Coding Summary HTMLBase 64 TbjeidbuUMe7tGl+PGhlYWQ +ZI6BDYEdF77leXDevA6aU6 NMTElOSywgQVBQTElOSyIgb tGiRO7duOKsIHNi IC8+YM2iHGRxQbuvcFJgq2E 5jMH8W75gim3pJIetsZF6EN PsBoVponncn3jzvBq8ZTopW mluOyBt HWDdyF30UUK3vK71Lp73xWQ rtDOnp7bdsIz9YnYxFASoZH A6vSoyZSiwq6RqSOJdU97kd ABsb0T0 VPYwlJqxmBZaDpUosTZ7sK5 lPGyhkwfmk3mfmymjWdt8zn 72vICea1R7fPI0H0BxfjN2O GJvbGQg DpdblXWKfO1oygjds1tfezq nSiAfAFBqLIv3VXm0PCEeoL shWrIkZY47UMJ2VUGqiiPuG 2FsLWFs cXgyBbX3t3N0Lk4RH0THHld pI9AMLDTQLSnzeQK+PC90cj 59R0MkAgffSug3NRDrRKK7k FH6yL3h RUOdUTwxd1L2wDE4Z0KonaH eiu5ay1tpXUOoGMejB71riF Nlg0A4ISXnyBJ6ZEIzcEwvM iBzaG93 Oyc+XLWojPneh7KfWmroz1s qg0kbqXn0JtuiKCFehpXiwD whULC6l9SrYz4fKJMcjUO1s FF1zY4u TmMhPpJ5NAriI733YbQzfCL jRrgaG81bM8GwrPB+PHRyPj o6UYKhhEfeUJ5lX2DmCWNzt mctbGVm xDlpPP7uLVHcnzjiXVSnkL8 tAYVeF9c8OeXxHyN0EGyeD0 QfYVMehrxnWp47qH7hQqAmY xM9ZJgn E4FpthV8WLAsjDQkEOpsZSC 3B70er7L1XOSyACOpZNV7jM J4tA6ucHhtsxwtlXKiqDtlq mVydGlj TKewSMxeM153MUMtqCdxLpM vZGluZyBEYXRlOiAgMDUvMT YvMjAyNDwvdGQ+MUZgQIB7a WxlPSAn yMEyXGwzVn3shUnqgRojIJ8 yVJJjfgdeKLAdrO5kVCVgbJ OilJbtFL1iFCGbkltnr476T iAxMHB0 HZWfeWQyE3OoqA8fIuGxKFO wKRZpT7VhqDPxFKtqH335YP uoTvI3MCOacvDtG4QbRJQjo WduOiB0 c6I2Hy7Aj5LuvioeQ7XmqFV kTxXkKifkKYd2Z2RxUlrvlF I+ZI32EKMaPZ51IPr3NSL2w WxlPSdi AUGdX5KyvM6lXqVkLHIsRJM kOyc+PHRhYmxlIHdpZHRoPS kcUPBrTzPfmIpnIU1eNa6qC GVyLWNv lAryzTXvHxDbf2vpWDNeABs rRC1tpXviJ3AoxQS8MHCoi1 k6Cf37S14gE6ClfYB+PGNvb XP7rDA9 wH5pTiKpMeT8DLngP609KiT lwUOjTjmdh2zsu0sgfAh9Hn N7LGSnxfFcdKtnZRN8r4KrZ c02P26k IHdpZHRoPSIxNSUiIHZhbGl lbf1vpY4yNk8+HJVfnZK4uE R3fF3sOxYjQyL3OFjhI262M nRvcCIv Xpkou5twa0yifHn8QkYhGIW idcGjbFwwUVL6p6BlYw14I6 SszKury0BdYbz3dn79bTJmz 5E5qQW1 N7SdOCZbivbdzWIsiCsiRZ5 eKKVfnvguKLDuhO7kZZEuH1 u9JyVzMtC3BDkdP2TsofF1R GJvbGQg JPXnjSQWeZ0utfzem3cizuc mYfKkUZRvIXz6CBx6OZJkjS gxQiPdUQW4KyQ3UUQ5bMLeb E1wyLcp wffqqS1nMdp+RTU5tMJtbYL WXP2gFovwmRU+JLIcESY9oT zuXZfkJDTdoH4yQRLdE1k8L iAwLjA1 BRlnX6TddwD4OQSatSZeCTA xfVEImM5kfvdtb4ygsmdnGz SvATUhUXw8LHv2ZBLqqAhmZ iBsZWZ0 MdF3FGL5lMBniF6pwFggouh kmP1nTti+CshszJssZDD8NZ y4D8YrOfh3NVJoePpwER0bt GFkZGlu Vg7iqGxadRjvQJ2gHVKkzfq bb683VsMzj8pfVOCisPHmES stHNE8U25ej0N4WQBqTRXiL AY9lNF5 sO6huVkrliwczCCmiHjotzU upElgEDgkGQkbN867SWSwjZ gkXaVyURn9Y6IiGsb7JJMgd HfzRL1h qGNpPCpuXn7wkTjrlJtnVS5 jMJMfiwama523PzHtt8xlDR ZqzVAvRHogQTJ9D26jm5L5S CMwMDAw QTM6vST3oR9nyApdejsoxTT mdDsgdmVydGljYWwtYWxpZ2 47HJOgiNwwNtOccRg1O1SiD ro3RTOx mDkwHC3dmLTyMOjtDx3ugVp czEzbSH0uRIPwwfvxq862Dz Chl1izDDDfzNRnJVzwKOB8X 29oa7B8 RWQaJOGlXCP8qQV1nT3kcNr nbjogbGVmdDsgdmVydGljYW qeLQexG894XNZazAurOdMky GllbnQg ZVvdFZz4G2LqTzeoqEE+PC9 5OBSbLL84gFEczRDlv0jrnC v7XrHzFKSkKVG9vIaoVJuhc 3JkZXIt Y45zzMNeg1W3WFHvqBqlhJD lLvZnrGL9nW4gYNxpirjad3 otmzqsHxtdn4vjar91mT46H 29sIHdp ZHRoPSIzMCUiIHZhbGlnbj0 nlI2pVt0+WRWvvXT2yIC5dX 5wNTMiUuS5MStuD532OhNwv CIvPjxj n3mtr5hhdJn4FaZ0WJFoubE cyXljLXR2a1SdIh19E40qUC dpZHRoPSIyMCUiIHZhbGlnb s2txH9c Ii8+OEMdfGQ2hWW3sQ1cEyA oAaI0QOfbI287GsJmmYTyJp adB24rR2SfoFF+YOFzYyz2Y CBzdHls RP6pzEHgIFszKc8oDHR1FiO cZzPoAYvsK6BdZMWuqcptfs eihHM7BEOtFTRlcB97Da7kr DogMTBw aXNLvN3cirxim3hlvlqySaC eUBKuERn2HFk9FXAkiCcsZq WtYHW8QiY5JNU6uHOinG2gt Glnbjog zH7cI8KhAXVmxcwyKo56aO4 tTbAxNzM7UBzkKlo+Q1JBV0 ZPUkQsIEJSRUFOTkUgTUlDS EVMTEU8 I9ReLgz6WDDliJadDP9qjMS yGPofQi6gwQnjmVfqHP3fBW ZulukrDRPphF1kDFSjmXWjm YaaNP8l HDYuqrfdg403CnMzHIM5GSQ dzEFgW3ZrbU8vKuTfZDPsEZ IvI8MrzMCtZSwxM584OJjqI rB4TWYe eeHiP4DsBLPgzHviXvV8s1U 7Wq2cXr5uRY4fHXx2BA28GG 80hVUha0H6uTW9D5YnPWIfo mctcmln aUW6GNJtQGNjvZ81oVQlXLh rTk3wa1Z5n066ZGEvDFQmdT 75Ad9vzMwxQBFkuGGChG8fj gmel2mu qkuoQyMeENMoFVg0CVa8ZDR hwGeyHdLpNXG0GpN3AAE3tA OrlS9umRaaayfxiV0jAsm+M jUgWWVh qzJ6M6MzRhb6FSGhsIlxEW4 blEXdURgnNm8bsNdtwQpaIR 6dTWIvqwssZNOiaP6lVIGux HRvbTog AJ1gNJCmznbpd098WhLpLJX 0JSBcaUNcF8ObnD0eXrMnBC BdWGEfZ3CqwZFqEIgeN703Q GxlZnQ7 ZEVnrcJmS5TwTEVkfQvbDeF 9z6C3Uc4YHK1UHTX7N3BhRe b6QDVcsGrzEB0snOSxVDjnV u7zeLpv aVwrFI1pZSDvwtdjFOUyrX3 fBAZfaHYgeJnlYF7uFQIjbu rwh797MxTiVIX0FFXfwBTlH 5JpnK5v LrVqCYLaOPHaI7LogWXzRQw iD977FUsgWmN3JKGbkqRdP2 GxECQgbPzdCsQ3h1X3Sp0ZL DwvdGQ+ JK75wu06I9YhXkyrEiq2EUS sMSW1kLM4uO9mLAUqMMaoz2 T1gRX5Q0MtarQcjb8tj4cyL XBzZTog H84eyINeo7D1FRQqxZH6FQH zoHemKsXvlS06Ina+PGNvbG xwn9AnSypkt6gne2yajEp5J jMwJSIg glHrfFkdTXJ7v9RvGv03Y57 sIHdpZHRoPSIzMCUiIHZhbG tqco1upB2fYh2+RBRwiNV2h AC7hH8m JtUqTgN2IJqsB285HfQnnUU dPoqqg2tfe2dacUr2WgNsVM ZjnbZmhQzlBDV3g3YxMj03C 2NvbGdy h8VhYad3ur88lCOic4Q6bSR 1K9QcNRVtbnpezEYzuEgaZN 6eZHBfptpsZAIvaO8jKWAbO 0c9PvMd ErM2LYmsQ1YzglZ1TTCbtCV tRNDkmMSLaM4ogtzeb8msqs rgAyOhHZCoEIt0YNx9VVZqy WduOiBs MNA3DbX1GZE9oNRgyY0whNz euunnqH1lImi+EQl6m7ffaZ ZvVF1vqTR6RI32JI45xRYsf 2U7gFK5 I4JvJAMkasasyvtcgUY3CJB uERGsnN60Ta5qnKtgCw6rMZ UdRUY5RPEybGZuQ4IriQ1iW iAjMDAw XOWzN2UxmQLhWIxhU085ZJs xOqH6ADBknjDeL8ZyWWMvdH nhTnC4h7T4Kv4XXY22TA96Y J30pQOq m4N9yAX6Z9AmFKBmkfavavi nbYK5ASAlHZSmzV16Tq1cuF efMw8oMBHuRAH0ZUTmqTYtV 4HkbB8g GsUsNYSbAHCrO7OhjRXuAQt xX796IOquJtZ4JVPamzVjK4 PvPLPevSrlKnP0i1I1Ij7MB o78AI69 QQ51gYEax1F0oQA2F9ZmXGS pxqyodfzarZT5VANvXNPikH 45Uf3dzAxlIv1rEISnFLK6P FRpbWVz K2CabY4sUkJtCWHlXZXoJ8A zuACfYHchS839YYcvEiM6YA YgjdWiQ9WwEYQwcAfoRvF5h 1O2Zw8P XJsjxea7A5DdNabvyQM+PC9 5YOFlGF89zIPhjWMjs9ujyV g0YgYgKXNeXHI7fNllUWxia 3JkZXIt Y29 (more content not included)... [facility] Progesterone LCon 01-18-2024 Progesterone LC 14.5 ng/mL Invalid Interpretation Code [facility] Comment on above: Result Comment: Foll icular phase 0.1 - 0.9 Luteal phase 1.8 - 23.9 Ovulation phase 0.1 - 12.0 First trimester 11.0 - 44.3 Second trimester 25.4 - 83.3 Third trimester 58.7 - 214.0 Postmenopausal 0.0 - 0.1 Performed At: [facility] [address] [place], [place] [id number] Sarah Beal PhD Ph:[id number] Performed By: #### [id number] #### [facility] ([facility]) [address] [place] [id number] Provider Orderson 01-17-2024 Provider Orders [id number] 021 [id number]#1.00 OTGTIFF [facility] Coding Summaryon 12-21-2023 Coding Summary HTMLBase 64 YuozvfzaQLt7sHl+PGhlYWQ +OL7IKUSrW04snZOhwD1bU0 NMTElOSywgQVBQTElOSyIgb nSiHH2wxQItHLCy IC8+MP8lKPTuIrmjmCQrv3D 8pPT0N86mrr0eEUcdnPW6RE DtWqSuskubk7ddjKu5THfbG mluOyBt NGRetA90ACA2zC24Su93lVV rfWVni4thmKt7GsHoUWSdMY D8wRvhKObop0TvMEUxE36af FCdn5K1 IRRgmKsojCNqIaSnsNU8iK2 fIThylisvt9pjloxtHqr1sk 28jLJnc2H3oWR9E1FftoE1V GJvbGQg TxwhjLLFbK4jehxcp1qxqze bHmBlSWIkHXt8LVd3DEMhhK fcLgPpDY70GJP8TQHmayOiF 2FsLWFs oNvuQcN0f7Y4Hb7RM5YXPhu yG8HKVFNFWGotlBF+PC90cj 03S0LrXpokXrj4YPRaEEJ6a QO6pD6w UQFySHjgd9A3eJZ7G5WogoR enr6ls8yqLPFtZPdgQ29qkS Oiw0F5ATVbyJH5VXSmpAnhV iBzaG93 Oyc+EBFlsIoou3DfZmsbb4s qv3vpuSe6TvbgCYJamrUekV mxTYX4c7BrDv1uKGPboLI3u QD2oK9r TlEsNcH1GEkbU473FvHdsBO oEtygH33cT3VqxUE+PHRyPj d7MLQysPrfIJ9pG0WvBFJpg mctbGVm kQtdLD7iVKBvdqbbGNDwtY1 yLREdN7r8AgSpLuF9HAfuN5 HxGYXtzjdjTx73eW3hDcYjX nL2UWhj M1LvqjU1DDFurCDzWSikMBM 6H74pe1F0TERbWFCbVDI8fM L9cA3ckAyzczcvkUCbcSifv mVydGlj DJidNZmnM217AQDqaEyfHgA vZGluZyBEYXRlOiAgMDQvMT cvMjAyNDwvdGQ+NVGcENW8n WxlPSAn jVHiHKinTb5ndRxobOneGX4 sPUMgafoaTIMjaW5qSMAicS OrjWfbWG6kSNKdwathm570L iAxMHB0 WTIqmDDlS7NovI5yXcJrRSH hYLNjA4KvdFHsZUvdI457SO qyIuI0ZQOeqwMwA0OtZAWsu WduOiB0 x6C7Bc9Qu5CapnekS3RyeNZ vKwHwDmvoFPc7T8DeXkuqyG I+DH35LFNsMF31BNv1EZU4r WxlPSdi HOGnC6PzeY0eLyEuLEMtFEJ kOyc+PHRhYmxlIHdpZHRoPS mmYORyNjHzrBjiXE4tQo3rA GVyLWNv dFgxpBIxDuIpu9xyKHLgIGa zOK4zpCizA3JrjIO6CRAno9 v6Mj05P05fY9OlaRA+PGNvb II8sKU2 jR2kZgRjSiZ9QIydU293UbL jvNFbCgvqw2wfh3rsvFq8Ns O0PYFshzSvaPfzDWB0o4EoL y46N53j IHdpZHRoPSIxNSUiIHZhbGl qgm6mgB6iHj5+VHLjfHF6vV Y0bJ3aMlMdJwE8WSzoI871Z nRvcCIv Glzgs6ffe4aewXn6WeUqIIS xolCoiIqhFJY5d0HcGy83C0 TejXcwq8UeRob1sa05uWCut 5I6xFL5 A8CeCRFmtjiumTOgiGchEZ9 eAAQhpqngRBLgjR4lSRVqP0 x2ZrXxEfW1THofH4LtmmB4X GJvbGQg EZBdpAGMcF8qkmger0qlpzx qRePoEAQvOLo5VOl5JFLmiL saHfKgWUD3ObQ0GWA3rOEio W8xkXfb ztjxsP3zQfy+DDB6pHGhtXH WMD0mCozvgJB+ZWDqHJK5yQ oaVGktPDAdmS0aRQTbB9e8Z iAwLjA1 DOkrG9AywnC8PVVvqMCmTMG feIRIrX0yrzrdf9jpptlgIg RxNYCjRNz3OIt0OUZhuDzkC iBsZWZ0 QuT2FUN9xSEdlK2kmHnebcs ljW8iDnq+ZybrkPevWOB5VG a4T8FbWhs2RYOjmNfpIK5ia GFkZGlu At0psJvywRylTH6xUXUrcbu lt584XsUiv8mhHCKucPCxIU hgLPA7L63np2Y3HNRqJZBlD SP2bGW7 sW7sbRjyjlxyeSCmjNfqqwU twRnoQJeiLMgkP986AAGptG drLqNuYPs2W6SoAhk3ECAra AykKH3z uROeYDnyZj9quUyszMcbZJ4 jJBJfvdmzz237EsSil8buNH QwhWDhCZzdDYH8P11pz0M7Y CMwMDAw LQU3cJZ6rQ2ceSjvcxwonLW mdDsgdmVydGljYWwtYWxpZ2 03IGJbhHuvVmRzmHq9B8YiI oc9UUMv uOomSN3imQNsSIwoUd8wdDc jdEzqZR4dUJCuznrpc436Kg Ctq0zwSAQjvJEbKPsdOFU3N 81hl7Z1 IXIoIREcLJO8oYF7pW6olCe nbjogbGVmdDsgdmVydGljYW cfTFdmL576BZCerDkbEuDqn GllbnQg IYbwJAh5N5RgMcjgiUR+PC9 3SJUpEM86vLNatHBpk7btaS k4NvXdXQEaSPD4rZkpUPgja 3JkZXIt U32mkJMlr9T7GPWwnMejoAB mDpAitJA6dD4aCIqrwiarl6 hlhhobXsyut8prmn97jD54G 29sIHdp ZHRoPSIzMCUiIHZhbGlnbj0 zjO0yXc4+YYBrcJD4uFT0kF 0vBKAmGhZ3FRkzS108ArKgk CIvPjxj s5fnk1bqgJp8OzI9MJSnriQ emAydNMT4z4XiDm46I05vFX dpZHRoPSIyMCUiIHZhbGlnb d3jxC0r Ii8+XNOshWP8aET4rK0eXlU iNbZ1WBqjQ252LyMfgWZdEa etG46nF8PqfSE+ZMKiYnr0K CBzdHls GF7tyGZpIHqaEu8zQZB4JjE fWoXiKMiiU0JkHCHsahjakg ozeQA9KLCwTHDpvT91Du5by DogMTBw rLNFzT5yidblt1idsijxLlN lAMMtIFn3SOj7JCYnqErlCw UjORL8FqW5NYY6mUXzdX8ez Glnbjog uL6fS2CdJSUvntkwTd01yH1 jIjUsYwD4BXruOxe+Q1JBV0 ZPUkQsIEJSRUFOTkUgTUlDS EVMTEU8 B8AaPfm1ZRJouHceND0acAE gLMtaPe6ncQlljJohKO0aJK EcuruiNJRpmE9jNEXqsHQwr RdiEH8a LJJdmnvzp413RtHhFTB7PAI hvKGtH8BaxK7sNaRxOHLbYT VvK7DdfYHtXKjpR325EIqaS oX6GCTq vcDyJ3NwOZRppQxxJjO7o8T 9Of3yOg1sEQ7aMBh8KU84WK 30zGCst3H9fRR7U9JuFOHzy mctcmln vQD3CNFyOJCocO43iXWqXIg vEy9nr6S0q552CHYwWZVtyN 93Zu6xcMyhZVCplQSMzU3am dcgm5xz fukzOhPxTYApGSg7SVc5STR dkCzkUiDpYBA4UbV6UCS7yS XpgP3nvMlrnvoguN5fStp+M jUgWWVh sqB7T9UmDul2MAWbmAtzJR5 cqMEdKTnxHc1xcGmstInbSJ 0wMGVpptemFVAhjT1mWSBmu HRvbTog XK0rIWUnxkrep150IfUbTAC 7BYCmuMWeX3XubU6sIrKgPS BrESFtY6LglEJvGWalS596E GxlZnQ7 WDKzsdXcD2MlBEXzgRoxZhD 2v9B3Xe3USU3SIHN2X1QfXs k8QELweKefHG7fhIBdFNmtK i4rdLjr nHpmNK1fUJUwwrrdDFLrpW2 zUZXwiQEqiSveSK9pOJCxvr ezd307DnPkPZY6HNJyaXPdS 3AicF0t CtHfXQEaCAStA4HbiNPuXDs eR053IUxoZlH6EVDsfbGrR3 QbXGRepDxbQzG1d7L1Fq5IJ DwvdGQ+ EP61pv84F3ZaFgsvQwx8JMM pSQY0jTY3uQ6lCIVzIBuar4 D9mNC6Z6LpjxCdps4jb3suW XBzZTog Q40coOWkq6Z7TBOntFU8CQT lwQepRoTrrQ26Ccw+PGNvbG xnb7KzCjjfo2pdr9padHd5Q jMwJSIg itMtiVsjUAW0t3JrKl93K76 sIHdpZHRoPSIzMCUiIHZhbG avrj0xtO5hYw3+IQCzrDC8t GC7kF8i BnAnSsN6IOeoR682FsLbtIG sJzqsq6dfl4kuzDf2RlYtVV QflgCkfLgpFWZ2q5TvYm80X 2NvbGdy e0AiEqc8mv93uVVrv8E7iVC 7N4QaVHToeovvuPLwxIkkJY 6yVKKpbubzSRVjzW7dXRPlN 7b0CyAy AhW4EMvaH1GqsfB4HWGlyZD fKXZorCGGmN3qhpqgb2ulyj olMyNqMQZnQHk2VNd0XZXlt WduOiBs VZH5UkT6KBB2rCMznM5miGg qtzewkE1pAub+MPi9s0ctaW EpZW6tcPI2TS09ZN77eLSzs 7A8rOK7 K0IrYFQzsxetenikpNZ9AHQ qYFLpzV49Is5ktRitKk2zNP YrUWJ4FDPpmMBrI9YdzY1uN iAjMDAw WOVtQ8KxcVFpEAmdR976AGp cDbM8LYStaqAuE1UkBUCcpL xsWiD5j9T7Cu8GZH55TV65H S07uWTx u0K2hPJ7J4MvKLNihxxiupw yeRG0EOGsXVPakI08Me9nwL xvBi9yJXBfDGP6VWNwkXZzK 5CnoB3n SnMyEKDbZQDzD2TevIHaRZl aZ375EAdnEgM1DSRrolTfW1 BgBOAbzYalOpX6d3B4Nm8UA y23YT34 WC68sNLrd3O3ePJ1W0ElIZT fhjbzdqpxsDV1AJDlLXZrcB 03Ec0hqEvdIj4iBDJvSTV3K FRpbWVz X3IvhE9rOjGjKFQiXLQhX2D jbDNqKFtlE501TIdhErD9HV MoesIyB3YuZUBwpUaaNxZ4o 1W5Ij6X SDzsxmq2N1SkWbgrrVL+PC9 6HPByGO59dGSvuXDra1kpkI p7CtCfMIUtVRO7gOjqZEqqy 3JkZXIt Y29 (more content not included)... [facility] Progesterone LCon 12-17-2023 Progesterone LC 9.6 ng/mL Invalid Interpretation Code [facility] Comment on above: Result Comment: Foll icular phase 0.1 - 0.9 Luteal phase 1.8 - 23.9 Ovulation phase 0.1 - 12.0 First trimester 11.0 - 44.3 Second trimester 25.4 - 83.3 Third trimester 58.7 - 214.0 Postmenopausal 0.0 - 0.1 Performed At: [facility] [id number] Sarah Beal PhD Ph:[id number] Performed By: #### [id number] ####[facility] (DEFAULT)[address] [place] [address] Provider Orderson 12-16-2023 Provider Orders [id number] 051 [id number]#1.00O TGTIFF [facility] Coding Summaryon 11-24-2023 Coding Summary [facility] RqjcwlilVDg8dPh+PGhlYWQ +GC7LTAPpG13viQXyfO0bU2 NMTElOSywgQVBQTElOSyIgb nSgMG7jgPKdBYHe IC8+VZ8bGMJiFmjflPGxp6C 2sKY8J26gpa3uIWpmlQF8ZC KcMcZzesulk3eyhQq9ICuaQ mluOyBt HWSleT70NOT8mO99Vq34lQC zdUGpw9iadRx0AhQhCBPcQJ Q3aQtaDDhcg8XvCMHaF21ro UQpc2F6 RHTvlHtjbQFmZrWjuIC4yB3 jTKpycasxr8ozsswuMst7cv 33tUOxs2S6pYA7K3SkyqA5G GJvbGQg RsqiuHPOyR7ovggro9gjflx nZpHwAYXzRUr9TCs9UYKhtK zlGyCwZV18OLV4ILVasjGjE 2FsLWFs kWusJsD3v4A5Xu1AY6IKVlm hM4JUNBTKQWaowBW+PC90cj 07W8JfOltiMpm1FYTiFBK9t OY8yJ6e UUUeMQihs6P6cVR6C0UydsK kfr5mv5wtYOVwQOmvX52udU Vwi2N8KAFycLN2HQGyfJvbK iBzaG93 Oyc+TZVsnTgfg9OgAxepm2e pr9pooZs4RjoqSGCqmcVcbU dwJEL2e3FxZl9kXRCdlYD6w NP1sJ0f LeLyNdF1NScxR189JtYjsCI nSfsaC94yE5NbxUY+PHRyPj n8WYHpvGxkBV0zA3IuKLVll mctbGVm tYwiBH2xZMKlwbvsTTOarF5 fZWIwY3f4UuRuXoM4LXuqX7 ZrBLFnslydXq05aN4vEwJgX kV1AIfm K4KduaK3DGIqzFQoXFbuXRG 0A38af8B0RWAoOZBbNHX9mP T7kQ4bmMzqyunicINejCneu mVydGlj IWpgXRwfV762XFHvzCdkCwM vZGluZyBEYXRlOiAgMDMvMj EvMjAyNDwvdGQ+WSLmGCQ0y WxlPSAn rWJxKJwaUh8sqHpgwVslRH9 mNKGnxjgnDFNsmK7wDMUewS MuqCmsLS3dSKGvtsacr594W iAxMHB0 JVPtsTYlV4PcjY0iLmJfPYS iKZSzA2TctCFoOOnzS629IO nkWgO7BJYdtvLkO5YdUSXwy WduOiB0 p1Z5Ya3Jq7WjqvlnJ7DueXH cJpTiFrqfOYt1S0IzWgvvhR I+KH21BYImSI39EQc6QCG0g WxlPSdi SZDaP4QsuR7oUeEzYIMxBYS kOyc+PHRhYmxlIHdpZHRoPS jsVQNsLtYqbCymOV2cYs4xG GVyLWNv zCezfRVpGeFjg6voPMKfVHx rCO8zqGqjF3VidHX6JGXiq4 l0Nc62I36fD7BqdAZ+PGNvb PP1bOW1 jF6mQpUxPcO2UAgjD120TbQ meXGbMwyry5asg0mdqIq0Cz W4GNWxheHrkHrdCVL0h0TkG x62M67y IHdpZHRoPSIxNSUiIHZhbGl qpe0vyK1oXj7+LUYmuHZ3wD U6sQ2cGmSyVmF7RBwyV363T nRvcCIv Rkyff7qzc0hlhPq3DuBcECV bheHjlVikPET6t3HfFz67F1 KmmHidr9TcSrq5al40qTRtr 5G4hIU6 V8YbSQGltlkexBWhoAmuWU6 gJACurgbiIYNyyD7mSVAeA8 r2ZmQrLaH6OMxtN4ZxphO3B GJvbGQg GZEbfQDAdV8xxwkps0uzxgx qYkLaEXHwGTk9UKg2IKIllZ bbVkZcHRK9JfS3CIE0lSCdl V3vmJpy hgkajY7dXgp+YMU4zZPjiWG ZRG7vMndquNT+IJCxQKT9oV psTJjdIRYhsO6xILNzF5s2C iAwLjA1 VUpfL3DenoT4NNJylXFaVOI raWRFvF4oijoaz0axqppkMx GtLZYvGFd3OIk8XDLfyExaA iBsZWZ0 OkL1KJB5uEYqkJ1teClcnyp vsM9vSxq+RqpxpHudUEN4UG j0Q8NhDzj4LMLxgRdtEA9qe GFkZGlu Ij3oxWgfiDbvIT3iCKLbnaq vb013KyZdf1ruAILbzIOfWJ huDSK2J84vb0Q2YEYtNEDoN BY2wBY9 aC0rdGwhlbmpdMJkvVvzqeO plTwcBPvuYGwjP833LQKqpL syLbWpTYb6N9QpTqg2GBRjw IakYN6t cOSjQJxrFy8aiAylzXyzLR7 fKSHpseetr338GtEue4jwSG BhzAKoBNpyLEO4C73bw7D3W CMwMDAw FVT8cUA7nD4wqFfeoxxekVO mdDsgdmVydGljYWwtYWxpZ2 66SANpvUkoDsCmtDw6E8KrK zb2EYZk nSdgQW5kyFUyVDgyAs6yzNs jsBesBB5nOREccsnor472Zy Plf0fzHWIxcGFcVYbkCAP3F 26ol3M9 WUAoHCAlBEG7oYB6jP1niZr nbjogbGVmdDsgdmVydGljYW lcOVyaQ679TAEngDjpHmMjg GllbnQg YQqhXJz5T1YaJekpfPT+PC9 8CNQfJS04mEQgtDMgo3osbD m1HwWcKDPsLEE6aHveHUvtr 3JkZXIt R62jwGDwr9T2PRAxqBvtlOR vDhGtgSM9tY0pDOzmkbeav6 odueykVimup1flga58qA13M 29sIHdp ZHRoPSIzMCUiIHZhbGlnbj0 bwQ8bYg5+LYQauUM2hSP1gG 4pBDRtCrR2PEiqY259VtZrf CIvPjxj d1zem3cbrEl3RkN5OHJvtsU gsCoyVNU8x3WkNv09D85cZF dpZHRoPSIyMCUiIHZhbGlnb g2fqJ1l Ii8+EKPjjNX3iZN8nL0xTgF eWiO3ZYliL030MhJvdXJcUg lbE65xD0FkcBF+PXMfFtx7A CBzdHls RI8vvTOtCFxpOb5eKPV5JcF oVwRaJJkjV6IhSWShgtobfq jtkLB0RFJfADVnnZ76Iy8zu DogMTBw tGUEfV4xsdzli8uwejvzFaM mSMIbZXn9XXb9JNJxkYasDp EyRTR1DnD6KOI9pABivX0dw Glnbjog qN2aL9DbVJSagakmJn21wU1 wPfKiBqX6YOvxQss+Q1JBV0 ZPUkQsIEJSRUFOTkUgTUlDS EVMTEU8 U2RkGwn9GEGruJklNK2afJY wHPjxVs3opEmovNndMP2bEW RjvdrpHGFubS4kVSBdiDByt FjzNM9l DHBilfzgb598LnGmKSP9DFW toLLgG9RwuT8pLbNnMUFeRS GyX9JhaYVsWUiiB212XUmxO qH2ZPIs bbFfG4DlRSUmcPwzFaY8v0W 1Nz1fDy9kJR2lCKk4FS13HZ 56vORkz2H7kZB4Q8QcVZDmg mctcmln pQU2STTmMHWybI34mVDnSHt jNi5gf7F2l806RPTiATVgkM 02Uq2mcOknPWJmbBIDcE3lm yzvj2hx nxnwOnAfBYYfGGu5XQn4GPT rrPlhWlHhAGU9ExQ5SXA9fP JtuL7miHajresxxJ4kLjl+M jUgWWVh foL4F7CyGxc9ZAPglRgtBE1 rxPVxHSziIj7hoAjbzWnnMF 1iTBIxbwmfURTugF6rEPRcy HRvbTog LC9tSADsvqegb266AcGuRGO 7INXjiIZpN3AllK7xIjIgPI RrLVJcF2IpmRSkDHtdL458Z GxlZnQ7 DLIcysXbS7TnMUGrdHxhQvP 1t2N8Pk0FFM0NPDV4C7LxOz q4KLQxwPzcTZ1ybLZoORpmX w7puTbi gIgtIP8pDWGuqlltPGIzjE6 hJSKtqBTvvHwvYH5aYGKqed saz664JdZhXTW2WCQiiIYoB 9UzeH6t DaHxQJWcSKTqJ8FxjCTjROf oH973YHscXuG9LYZwwyCqP1 IcNVXthYfzWfH1x8S4Uv4Hi MLlB8Jh K5g4D3DxGndzcHX+EC99HKF uAV46fZCswZPte9jwePi3Bg KcAKLuTJS4tMjsAHrzq7KhK BJwM18q mLZvj6K1PPVbdQrkwNEaRcB duZQ3dZ8mYRwuwqkcs6gbbj roFskgf4vofj76lY93B12jZ HdpZHRo FTEdVSIyJKQutZsfxo7isE8 wIi8+EXMziPY1jBN1nM6mMv HcGxV3YUhpZ926FiSozQPqT wbqk0gn x9ryySi4AeTlRESgnlIlzDh qHSH6t6FgFn87C47lWIknVO MfGGDqJPJsPWIfhFbkkk3ub G9wIi8+ MK2ya7ujdz21cG75zVH+PHR hVML3eHyqFDneJJUdmP7rOW xcLqS7GENkQiEmvZ55hLHpS YiuOi7a sBuiyKclPT1qSWLpjxbeo25 4EvVfl1rpBQNijHYqCSxfTS H2G75cu1N0BWJjSQQgZUO0b YM6rH7g bGlnbjogbGVmdDsgdmVydGl vHXapUKbgE798XGEbjXcvWh SpoQAqY9bqwzPQBG4tDfupx GQ+PHRk PJB7iZkoJBfsCRHroZ3gXOJ fR4a9MlWeGjV0FYheZ0Dxhw J8TVJuiSCkSSLciMLUeK7se bbbl0qd htbzKvDxFYSuJIe2YOi2WRQ slSljEaZaTUE8XoQ8YEI8zL EynQ9ylNacsrqtsG6mAqc+R klOOjwv dGQ+WNPbILV5iKfdQYfrRWK fbZ0lPTOzV3h4QnXoXoM8AJ crO2GlyjZ3MOTpdBUdREOqb TIYwM6k bvssh3duydhyAdKzUZUsHOw 2RXi9XTOkmEewPiSwATI0Xq Z4ANU1vWUitG1kbMnscdqih G9wOyc+ TVJOOjwvdGQ+HUDvKNO5kMf hBWdwIAKwgK3hDSEzS7l6Lz FbYfT5DLneR2BhliC7MUChd GQgMTBw cFGFhL9dlsnel3zfmsygZrM uVFNwPPm3CFx7NXRqnPavUh VgWIF4RgO5ALE4aOLazG3af Glnbjog aY8iHqf+[id number] 1N3XbTiwfeUXjbNU+PHRhYm xlIHdpZHRoPScxMDAlJyBzd OzpFA3o Ym9 (more content not included)... Normal [facility] ED Clinical Summaryon 2023 ED Clinical Summary [facility] - Emergency Department [address] [place] [address] [id number] ED Clinical Summary PERSON INFORMATION Name: SHERLY ASTUDILLO Age: 23 Years Sex: FEMALE : 2000 MRN: Acct#: Visit Reason: Laceration of finger; LEFT INDEX FINGER CUT Arrival: 11/19/2023 09:14:04 Discharge: 11/19/2023 10:10:00 LOS: 000 00:56 Check In: 11/19/2023 09:14:04 Checkout:11/19/2023 10:10:00 Address: [address] [facility] [address] PCP: Radha Gomez MD PROVIDER INFORMATION Provider Role Assigned [...] indicated that she was using a box car bracer. She used a sharp knife, and accidentally [...] History Medical history: Resolved Ankle fracture, left ([id number]): Resolved. Ankle impingement syndrome (645051354): Resolved., Reviewed as documented in chart. Surgical history: Cholecystectomy ([id number])., Reviewed as documented in chart. Family history: [...] Substance use: Current Comment: Gillian - 11/19/2023 09:Marisela Morfin RN Tobacco 09/01/2021 [...] Polycystic ovaria (more content not included)... Normal [facility] ED Note - Physicianon 2023 ED [...] indicated that she was using a box car bracer. She used a sharp knife, and accidentally [...] History Medical history: Resolved Ankle fracture, left ([id number]): Resolved. Ankle impingement syndrome (094509097): Resolved., Reviewed as documented in chart. Surgical history: Cholecystectomy ([id number])., Reviewed as documented in chart. Family history: [...] months. - 02/02/2023 11:53 - JanuaryAilin RN 11/19/2023 Alcohol Use: Current Comment: Denies [...] and orient (more content not included)... Normal [facility] ED Note-Nursingon 11-19-2023 ED Note-Nursing Pt ambulatory back t o ED rm 6. Pt C/O Left index finger laceration. Pt states she was trying to open a box and cut the finger with a box car bracer. The wound on the index finger is a straight line of 4cm with a width of 0.2cm. States last tetanus was more than 5 years ago. Pt is A/Ox4. Normal [facility] ED Patient Summaryon 024 ED Patient Summary [facility] - Emergency Department [address] [place], [place] [id number] PATIENT DISCHARGE INSTRUCTIONS Patient Information Name: SHERLY ASTUDILLO Age: 23 Years Date of : 2000 Reason For Visit: Laceration of finger; LEFT INDEX FINGER CUT Arrival Time: 11/19/2023 09:14:04 Primary Care Physician: Jason MCNEAL, Radha Santo Attending Physician: Sreedhar Cheney MD Comment: Visit Diagnosis: Diagnoses This Visit Laceration of finger ([id number]) Laceration of left index finger (S61.211A) The Pharmacy at [facility] is open Tuesday through Tuesday from [...] alcohol and/or drug addiction problems; contact the [facility] 28/03 Crisis Hotline -Text 3VPCL gx [phone]. If you received any narcotics, sedation, or [...] sign any legal documents With: Address: When: Radha Gomez [address] [place], [place] [id number] Business (1) Within 5 to 7 days [...] and treatment you received today in the [facility] Emergency Department were for an urgent problem and are not intended as complete care. It is important for you to follow up with a doctor, nurse practitioner, or physician?s registered nurse first assistant for ongoing care. If your symptoms [...] so we can reach you if necessary. [facility] Emergency Department has provided you with a complete list of medications post discharge. Please inform your primary care nurse practitioner/provider of your visit and for further instruction [...] better healing. Unl (more content not included)... Normal [facility] Mikael 01-04-2022 L --- Specimen: [id number] Received: 01/05/22 Status: QUOC Garber Num: [id number] Spec Type: Surgical Subm Dr: Rodney Lema MD Tissues: A Skin-Other than Cyst, tag, debridement or plastic repair (SCALP) Procedures: HE Stain/5, Gross/Micro L4 Patient Age/Sex Location Account Attending Physician Sherly Astudillo / LAM [id number] Rodney Lema MD SPEC NUM: [id number] RECD: 01/05/22 STATUS: QUOC GARBER NUM: [id number] JANE: 01/04/2245 [facility] DR: Rodney Lema MD ENTERED: 01/05/22 [facility] [address]: Dea,[facility] SPEC TYPE: Surgical DEPT: MAG FUENTES ORDERED: [...] Fixative: 10% Neutral Buffered Formalin (ESTELA/YJ) Specimen: [id number] Received: 01/05/22 Status: QUOC Terrynavin Num: [id number] Spec Type: Surgical Subm Dr: Rodney Lema MD Tissues: A Skin-Other than Cyst, tag, debridement or plastic repair (SCALP) Procedures: HE Stain/5, Gross/Micro L4 Patient: Sherly Astudillo [id number] (Continued) Specimen: [id number] Received: 01/05/22 (Continued) Signed (signature on file) Debora Cintron MD 01/07/22 0930 Specimen: [id number] Received: 01/05/22 Status: QUOC Garber Num: [id number] Spec Type: Surgical Subm Dr: Rodney Lema MD Tissues: A Skin-Other than Cyst, tag, debridement or plastic repair (SCALP) Procedures: JASWINDER Stain/5, Gross/Micro L4 Patient: Sherly Astudillo [id number] (Continued) Specimen: [id number] Received: 01/05/22 (Continued) Microscopic Description Six glass slides with H E stained material and two IHC stained slides have been examined. The microscopic findings support the above pathologic diagnosis. ANALYTE SPECIFIC REAGENT (ASR) DISCLAIMER: The use of one or more reagents in the above tests is regulated as an analyte specific reagent (ASR). The performance characteristics were determined by the Laboratory of [facility]. Immunohistochemistry assays have not been validated on decalcified tissue. Results should be interpreted with caution given the possibility of false negative results on decalcified specimens. They have not been cleared by the [place] Food and Drug Administration. The FDA has determined that such clearance or approval is not necessary. CPT Codes 61923, 25273, 22397 Specimen: [id number] Received: 01/05/22 Status: QUOC Garber Num: [id number] Spec Type: Surgical Subm Dr: Rodney Lema MD Tissues: A Skin-Other than Cyst, tag, debridement or plastic repair (SCALP) Procedures: HE Stain/5, Gross/Micro L4 Patient: Sherly Astudillo [id number] (Continued) Signed (signature on file) Debora Muller (more content not included)... [facility] Cytology Cervical or vaginal smear or scraping studyon 12-26-2019 [facility] Vital Signs Date Time Vital Sign Value Performing Clinician Faci lity 11-06-2024 08:46-0500 Body mass index (BMI) [Ratio] 44.01 kg/m2 Emily Lundy [email or web address] Work Phone: [facility] [employer] 11-06-2024 08:46-0500 Body weight 127.46 kg Emily TALBERT Work Phone: [facility] [employer] 11-06-2024 08:46-0500 Diastolic blood pressure 76 mm[Hg] Emily TALBERT Work Phone: [facility] 11-06-2024 08:46-0500 Systolic blood pressure 128 mm[Hg] Emily Lundy PA Work Phone: [facility] [employer] 10-22-2024 14:46-0500 Body mass index (BMI) [Ratio] 43.04 kg/m2 [employer] Work Phone: [facility] [employer] 10-22-2024 14:46-0500 Body weight 124.65 kg [employer] Work Phone: [facility] [employer] 10-22-2024 14:46-0500 Diastolic blood pressure 70 mm[Hg] Cole Celeste DO Work Phone: [facility] 10-22-2024 14:46-0500 Systolic blood pressure 116 mm[Hg] Cole Celetse DO Work Phone: [facility] 10-08-2024 13:57-0500 Body mass index (BMI) [Ratio] 42.15 kg/m2 Emily Favian PA Work Phone: [facility] 10-08-2024 13:57-0500 Body weight 122.07 kg Emily [place] PA Work Phone: [facility] 10-08-2024 13:57-0500 Diastolic blood pressure 82 mm[Hg] Emily Favian PA Work Phone: [facility] 10-08-2024 13:57-0500 Systolic blood pressure 122 mm[Hg] Emily Favian PA Work Phone: [facility] 09-10-2024 14:35-0500 Body mass index (BMI) [Ratio] 40.94 kg/m2 Cole Celeste DO Work Phone: [facility] 09-10-2024 14:35-0500 Body weight 118.57 kg Cole Celeste DO Work Phone: [facility] 09-10-2024 14:35-0500 Diastolic blood pressure 76 mm[Hg] Cole Celeste DO Work Phone: [facility] 09-10-2024 14:35-0500 Systolic blood pressure 118 mm[Hg] Cole Celeste DO Work Phone: [facility] 08-08-2024 11:09-0500 Body mass index (BMI) [Ratio] 39.37 kg/m2 Cole Celeste DO Work Phone: [facility] 08-08-2024 11:09-0500 Body weight 114.03 kg Cole Celeste DO Work Phone: [facility] 08-08-2024 11:09-0500 Diastolic blood pressure 72 mm[Hg] Cole Celeste DO Work Phone: [facility] 08-08-2024 11:09-0500 Systolic blood pressure 120 mm[Hg] Cole Celeste DO Work Phone: [facility] 07-10-2024 10:45-0500 Body mass index (BMI) [Ratio] 38.37 kg/m2 Cole Celeste DO Work Phone: [facility] 07-10-2024 10:45-0500 Body weight 111.13 kg Cole Celeste DO Work Phone: [facility] 07-10-2024 10:45-0500 Diastolic blood pressure 74 mm[Hg] Cole Celeste DO Work Phone: [facility] 07-10-2024 10:45-0500 Systolic blood pressure 118 mm[Hg] Cole Celeste DO Work Phone: [facility] 06-07-2024 13:09-0400 Body mass index (BMI) [Ratio] 38.53 kg/m2 [facility] 06-07-2024 13:09-0400 Body weight 111.58 kg [facility] 06-07-2024 13:09-0400 Diastolic blood pressure 72 mm[Hg] [facility] 06-07-2024 13:09-0400 Systolic blood pressure 116 mm[Hg] [facility] 05-08-2024 11:32-0400 Body height 170.2 cm Cole Celeste DO Work Phone: [facility] 05-08-2024 11:32-0400 Body mass index (BMI) [Ratio] 39.16 kg/m2 Cole Celeste DO Work Phone: [facility] 05-08-2024 11:32-0400 Body weight 113.4 kg Cole Celeste DO Work Phone: [facility] 05-08-2024 11:32-0400 Diastolic blood pressure 80 mm[Hg] Cole Celeste DO Work Phone: [facility] 05-08-2024 11:32-0400 Systolic blood pressure 124 mm[Hg] Cole Celeste DO Work Phone: [facility] 10-06-2023 08:53-0500 Body height 170.2 cm Cole Celeste DO Work Phone: [facility] 10-06-2023 08:53-0500 Body mass index (BMI) [Ratio] 38.28 kg/m2 Cole Celeste DO Work Phone: [facility] 10-06-2023 08:53-0500 Body weight 110.86 kg Cole Celeste DO Work Phone: [facility] 10-06-2023 08:53-0500 Diastolic blood pressure 72 mm[Hg] Cole Celeste DO Work Phone: [facility] 10-06-2023 08:53-0500 Systolic blood pressure 120 mm[Hg] Cole Celeste DO Work Phone: [facility] Healthcare Encounters Encounter Date Encounter Type Care Provider Facility Start: 11-12-2024 End: 11-12-2024 Clinisync Result Encounter Cole Celeste DO Work Phone: [facility] External Department Unsolicited Start: 11-12-2024 End: 11-12-2024 Clinisync Result Encounter Cole Celeste DO Work Phone: [facility] External Department Unsolicited Start: 11-06-2024 End: 11-06-2024 Bamboo flowsheet Emily TALBERT Work Phone: [facility] Start: 11-06-2024 End: 11-06-2024 Bamboo flowsheet Emily TALBERT Work Phone: [facility] Start: 11-06-2024 End: 11-06-2024 Office outpatient visit 15 minutes Emily TALBERT Work Phone: [facility] Comment on above: Third trimester preg maicol; 30 weeks gestation of ; Excessive growth affecting management of in third trimester, single or unspecified fetus; Diabetes mellitus screening Start: 11-06-2024 End: 11-06-2024 ambulatory EMILY LUNDY Not Available Start: 10-25-2024 ambulatory Radha Gomez Facility: [facility] Start: 10-24-2024 End: 10-24-2024 Clinisync Result Encounter Emily TALBERT Work Phone: [facility] External Department Unsolicited Start: 10-24-2024 End: 10-24-2024 Clinisync Result Encounter Emily TALBERT Work Phone: [facility] External Department Unsolicited Start: 10-24-2024 End: 10-24-2024 ambulatory [facility] Start: 10-22-2024 End: 10-22-2024 Office [...] BCP OB Start: 10-18-2024 End: 10-18-2024 ambulatory [facility] R [facility] Start: 10-15-2024 End: 10-15-2024 Chart abstracting Scanning Provider External Maternal- Medicine at [facility] Start: 10-08-2024 End: 10-08-2024 Bamboo flowsheet [...] EMILY LUNDY Not Available Start: 10-06-2024 ambulatory [facility] Facility: [facility] Start: 09-24-2024 ambulatory [facility] Facility: [facility] Start: 09-10-2024 End: 09-10-2024 Clinisync Result [...] of Start: 09-10-2024 End: 09-10-2024 ambulatory COLE ORTEZO Not Available Start: 09-10-2024 End: 09-10-2024 [...] Not Available Start: 07-05-2024 End: 07-05-2024 ambulatory Radha Gomez Facility:[facility] Start: 07-04-2024 End: 07-04-2024 Clinisync Result Encounter Cole Celeste DO Work Phone: [facility] External Department Unsolicited Start: 07-04-2024 End: 07-04-2024 Clinisync Result Encounter Ocle Celeste DO Work Phone: [facility] External Department Unsolicited Start: 06-07-2024 End: 06-07-2024 ambulatory [facility] Bcp Ob Celeste Nurse [facility] Comment on above: GA: 8w6d Start: 06-01-2024 End: 06-01-2024 ambulatory Radha Gomez Facility:[facility] Start: 05-28-2024 End: 05-28-2024 Emergency department patient visit Evonnejay hCeung Facility:[facility] Start: 05-28-2024 End: 05-28-2024 ambulatory Spenser Tellez PAC Facility:[facility] Start: 05-08-2024 End: 05-08-2024 Bamboo flowsheet [...] encounter procedure Kenya Richter DDS Work Phone: [facility] Comment on above: Abnormal tooth erupt ion (Primary Dx); Impacted third molar tooth Start: 04-24-2024 ambulatory KENYA RICHTER Facili ty:[facility] Start: 03-14-2024 End: 03-14-2024 ambulatory COLE R CELESTE Facility:[facility] Start: 02-14-2024 End: 02-14-2024 ambulatory [facility] Facility:[facility] Start: 01-17-2024 End: 01-17-2024 ambulatory Kul[facility] Facility:[facility] Start: 12-16-2023 End: 12-16-2023 ambulatory Kulwant [facility] Facility:[facility] Start: 11-19-2023 End: 11-19-2023 Emergency department patient visit Radha Santo Jason Facility:[facility] Start: 10-06-2023 End: 10-06-2023 Office outpatient new 20 minutes Cole Celeste DO Work Phone: [facility] Comment on above: Irregular periods/me nstrual cycles; PCOS (polycystic ovarian syndrome); Insulin resistance Procedures Date Procedure Procedure Detail Performing Clinician Start: 11-12-2024 US OB BPP W NON-STRESS Cole Celeste DO Work Phone: Start: 11-06-2024 Urnls dip stick/tabl et rgnt non-auto w/o micrscp Emily TALBERT Work Phone: Start: 10-24-2024 ALL CBC WITH AUTO DIFF Emily TALBERT Work Phone: Start: 10-22-2024 Urnls dip stick/tabl et rgnt non-auto w/o micrscp Cole Celeste DO Work Phone: Start: 09-10-2024 [facility] DRUG SCREEN RAPI D (URINE) Cole [...] AM EDT Routine [facility] [address] [place] [address] Cole Alonso, DO [address] [place] [address] [facility] Start: 11-06-2024 End: 11-06-2025 Measurement of glucose 1 hour after glucose challenge for glucose tolerance test Glucose tolerance, 1 hour Lab Routine Diabetes mellitus screening Expected: 11/06/2024 (Approximate), Expires: 11/06/2025 [facility] Comment on above: Expected: 11/06/2024 (Approximate), Expires: 11/06/2025 Start: 11-06-2024 End: 11-06-2025 US biophysical profile w non stress test US biophysical profile w non stress test Imaging Routine Excessive growth affecting management of in third trimester, single or unspecified fetus Expected: 11/06/2024 (Approximate), Expires: 11/06/[address] [facility] Work Phone: Comment on above: [...] unspecified fetus Expected: 10/22/2024 (Approximate), Expires: 10/22/2025 [facility] Work Phone: Comment on above: Expected: 10/22/2024 (Approximate), Expires: 10/22/2025 Start: 10-18-2024 End: 10-18-2024 Patient encounter procedure 10/18/2024 1:00 PM EST Appointment [facility] [address] [place] [address] [facility] Start: 10-08-2024 End: 10-08-2025 CBC panel - Blood by Automated count CBC Lab Routine Diabetes mellitus screening Expected: 10/08/2024 (Approximate), Expires: 10/08/2025 [facility] Work Phone: Comment on above: Expected: 10/08/2024 (Approximate), Expires: 10/08/2025 Start: 10-08-2024 End: 10-08-2025 Measurement of glucose 1 hour after glucose challenge for glucose tolerance test Glucose tolerance, 1 hour Lab Routine Diabetes mellitus screening Expected: 10/08/2024 (Approximate), Expires: 10/08/2025 [facility] Comment on above: Expected: 10/08/2024 (Approximate), Expires: 10/08/2025 Start: 10-08-2024 End: 10-08-2024 Patient encounter procedure [facility] Comment on above: Arrived Start: 09-10-2024 [...] encounter procedure 09/10/2024 2:00 PM EST Routine [facility] [address] [place] [address] [place] [phone] Cole Alonso, [address] [place], [place] [id number] [facility] Start: 09-10-2024 End: 09-10-2024 Professional / ancillary services management 09/10/2024 1:00 PM EST Ancillary Procedure [facility] [address] [place], [place] [address] [place] [phone] [facility] Start: 08-08-2024 End: 02-06-2025 Alpha fetoprotein, maternal Alpha fetoprotein, maternal Lab Routine Second trimester 17 weeks gestation of Expected: 08/08/2024 (Approximate), Expires: 02/06/2025 [facility] Healthcare Comment on above: Expected: 08/08/2024 (Approximate), Expires: 02/06/2025 Start: 08-08-2024 End: 08-08-2025 Measurement of glucose 3 hours after glucose challenge for glucose tolerance test Glucose tolerance, 3 hours Lab Routine Elevated glucose tolerance test Expected: 08/08/2024 (Approximate), Expires: 08/08/2025 [facility] Healthcare Comment on above: Expected: 08/08/2024 [...] procedure 07/04/2024 3:00 PM EDT Office Visit [facility] [address] [place], [place] [id number] Kenya Richter, DDS [address] [place], [place] [id number] [facility] Start: 06-07-2024 End: 06-07-2025 ABO/Rh ABO/Rh Lab Routine Missed menses , unspecified gestational age Expected: 06/07/2024 (Approximate), Expires: 06/07/[address] [facility] Healthcare Comment on above: Expected: 06/07/2024 (Approximate), [...] Initial [facility] [address] [place] [phone] [facility] Start: 06-07-2024 End: 06-07-2024 Professional / ancillary services management 06/07/2024 12:30 PM EDT Ancillary Procedure [facility] [address] [place] [phone] [facility] Start: 06-05-2024 Influenza vaccination Influenza Vacc ine (#1) [facility] Start: 05-08-2024 End: 05-08-2024 Patient encounter procedure 05/08/2024 11:20 AM EDT Office Visit [facility] [address] [place] [phone] Cole Alonso DO [address] [place], [facility] Arrived [facility] Comment on above: Arrived Start: 05-06-2024 Influenza vaccination [facility] Start: 11-03-2023 End: 11-03-2023 Patient encounter procedure 11/03/2023 8:30 AM EST Office Visit [facility] [place] [phone] Cole Alonso, DO [address] [place], [place] [id number] [facility] Start: 10-17-2023 End: 10-17-2023 Professional / ancillary services management 10/17/2023 8:30 AM EST Ancillary Procedure [facility] [address] [place] [phone] [facility] Start: 05-06-2023 COVID-19 Vaccine ( season) COVID-19 Vaccine ( season) [facility] Start: 2019 Screening for malign ant neoplasm of cervix Pap Smear [facility] Start: 2017 DTaP,Tdap and Td Vaccines (1 - Tdap) DTaP,Tdap and Td Vaccines (1 - Tdap) [facility] Start: 2017 Hepatitis A (HAV) Vaccine (optional start 19+ years) Hepatitis A (HAV) Vaccine (optional start 19+ years) [facility] Start: 2017 Hepatitis B vaccination Hepati tis B (HBV) Vaccine (1 of 3 - 19+ 3-dose series) [facility] Start: 2016 Adult BMI Screening Adult BMI Screen ing [facility] Start: 2016 Hepatitis C screening Hepatitis C An tibody [facility] Start: 2016 Tetanus + diphtheria + acellular pertussis vaccine (product) Tdap Booster [facility] Start: 2013 Vaccination for volodymyr n papillomavirus HPV Vaccine (1 - 3-dose series) [facility] Start: 2010 Depression Screening Depression Scre ening [facility] Start: 2010 Tobacco Screening Tobacco Screening [facility] Antimullerian hormon e (AMH) Antimullerian hormone (AMH) Lab Routine Irregular periods/menstrual cycles Ordered: 10/06/2023 [facility] Comment on above: Ordered: 10/06/2023 Bacteria identified in Urine by Culture Urine culture Microbiology Routine Missed menses Ordered: 06/07/2024 [facility] Comment on above: Ordered: 06/07/2024 CBC W Auto Different ial panel - Blood CBC and differential Lab Routine PCOS (polycystic ovarian syndrome) Ordered: 10/06/2023 [facility] Comment on above: Ordered: 10/06/2023 CBC W Auto Different ial panel - Blood CBC and differential Lab Routine Missed menses , unspecified gestational age Ordered: 06/07/2024 [facility] Comment on above: Ordered: 06/07/2024 CHLAMYDIA TRACHOMATI S (GENITO/STI) CHLAMYDIA TRACHOMATIS (GENITO/STI) Lab Routine STD exposure Ordered: 08/08/2024 [facility] Comment on above: Ordered: 08/08/2024 Cytology Cervical or vaginal smear or scraping study Pap Smear Pathology and Cytology Routine Well woman exam with routine gynecological exam Ordered: 08/08/2024 [facility] Comment on above: Ordered: 08/08/2024 DHEA DHEA Lab Routine PCOS (polycystic ovarian syndrome) Ordered: 10/06/2023 [facility] Comment on above: Ordered: 10/06/2023 DHEA-sulfate DHEA-sulfate Lab Routine PCOS (polycystic ovarian syndrome) Ordered: 10/06/2023 [facility] Comment on above: Ordered: 10/06/2023 Follicle stimulating hormone Follicle stimulating hormone Lab Routine PCOS (polycystic ovarian syndrome) Ordered: 10/06/2023 [facility] Comment on above: Ordered: 10/06/2023 hCG, quantitative, hCG, quantitative, Lab Routine PCOS (polycystic ovarian syndrome) Ordered: 10/06/2023 [facility] Work Phone: Comment on above: Ordered: 10/06/2023 Hemoglobin A1c measurement Hemoglobin A1c Lab Routine Irregular periods/menstrual cycles Ordered: 10/06/2023 [facility] Comment on above: Ordered: 10/06/2023 Hemoglobin A1c/Hemoglobin.total in Blood Hemoglobin A1c Lab Routine Missed menses , unspecified gestational age Ordered: 06/07/2024 [facility] Comment on above: Ordered: 06/07/2024 Hepatitis B virus surface Ag [Presence] in Serum or Plasma by Immunoassay Hepatitis B surface antigen Lab Routine Missed menses , unspecified gestational age Ordered: 06/07/2024 [facility] Comment on above: Ordered: 06/07/2024 Hepatitis C virus Ab [Presence] in Serum or Plasma by Immunoassay Hepatitis C antibody Lab Routine Missed menses , unspecified gestational age Ordered: 06/07/2024 [facility] Comment on above: Ordered: 06/07/2024 HIV-1/HIV-2 antigen/antibody combination immunoassay HIV-1 and HIV-2 antibodies Lab Routine Missed menses , unspecified gestational age Ordered: 06/07/2024 [facility] Comment on above: Ordered: 06/07/2024 Luteinizing hormone Luteinizing hormone Lab Routine PCOS (polycystic ovarian syndrome) Ordered: 10/06/2023 [facility] Comment on above: Ordered: 10/06/2023 Neisseria gonorrhoea e DNA [Presence] in Unspecified specimen by ISHA with probe detection Neisseria gonorrhea DNA probe, direct Lab Routine STD exposure Ordered: 08/08/2024 [facility] Comment on above: Ordered: 08/08/2024 Reagin Ab [Presence] in Serum by RPR RPR Lab Routine Missed menses , unspecified gestational age Ordered: 06/07/2024 [facility] Comment on above: Ordered: 06/07/2024 Rubella antibody, IgG Rubella an tibody, IgG Lab Routine Missed menses , unspecified gestational age Ordered: 06/07/2024 [facility] Comment on above: Ordered: 06/07/2024 SURESWAB(R) ADVANCED VAGINITIS PLUS, TMA SURESWAB(R) ADVANCED VAGINITIS PLUS, TMA Pathology and Cytology Routine Vaginal discharge Ordered: 08/08/2024 [facility] Work Phone: Comment on above: Ordered: 08/08/2024 Thyrotropin [Units/volume] in Serum or Plasma TSH Lab Routine PCOS (polycystic ovarian syndrome) Ordered: 10/06/2023 [facility] Comment on above: Ordered: 10/06/2023 Thyroxine (T4) free [Mass/volume] in Serum or Plasma T4, free Lab Routine PCOS (polycystic ovarian syndrome) Ordered: 10/06/2023 [facility] Comment on above: Ordered: 10/06/2023 US for US PELVIS-TRANS VAG IF INDICATED Imaging Routine PCOS (polycystic ovarian syndrome) Ordered: 10/06/2023 [facility] Comment on above: Ordered: 10/06/2023 Immunizations Immunization Date Immunization Notes Care Provider Shaina marley 06-12-2020 influenza virus vacc ine, unspecified formulation Cole Alonso DO Work Phone: [facility] Healthcare Payers Date Payer Category Payer Medicaid [id number] 2022 Medicaid [id number] 1998 Unknown [id number] 2.16. [id number] 1998 Unknown [id number] 2.16. 840.1.946971.3.579.2.1286 1998 Unknown [id number] 2.16.84 0.1.769588.3.579.2.9 1998 Unknown [id number] 2.16.84 0.1.464348.3.579.2.9 1998 Unknown [id number] 2.16.84 0.1.480635.3.579.2.9 1998 Unknown [id number] 2.16.84 0.1.876815.3.579.2.9 1998 Unknown [id number] 2.16.84 0.1.589687.3.579.2.9 1998 Unknown [id number] 2.16.84 0.1.064280.3.579.2.9 1998 Unknown [id number] 2.16.84 0.1.096964.3.579.2.9 1998 Unknown [id number] 2.16.84 0.1.244047.3.579.2.9 1998 Unknown [id number] 2.16.84 0.1.836329.3.579.2.9 1998 Unknown [id number] 2.16.8 40.1.500055.3.579.2.8 1998 Unknown [id number] 2.16.8 40.1.993860.3.579.2.8 1998 Unknown [id number] 2.16.8 40.1.467845.3.579.2.718 1998 Unknown [id number] 2.16.8 40.1.488207.3.579.2.718 1998 Unknown [id number] 2.16.8 40.1.285458.3.579.2.718 1998 Unknown [id number] 2.16.8 40.1.599524.3.579.2.8 1998 Unknown [id number] 2.16.8 40.1.796316.3.579.2.718 1998 Unknown [id number] 2.16.8 40.1.293335.3.579.2.8 1998 Unknown [id number] 2.16.8 40.1.865012.3.579.2.8 1998 Unknown [id number] 2.16.8 40.1.839804.3.579.2.8 1998 Unknown [id number] 2.16.8 40.1.669400.3.579.2.718 1998 Unknown [id number] 2.16.8 40.1.911265.3.579.2.8 Social History Date Type Detail Facility Start: 09-15-2023 End: 05-08-2024 Tobacco smoking status [facility] Ex-smoker [facility] History of tobacco use Current smoker [facility] History of tobacco use Cigarette Smoker [facility] Start: 10-06-2023 End: 11-06-2024 Alcohol intake Lifetime non-drinker (finding) [facility] Start: 09-15-2023 End: 05-08-2024 History of Social function [facility] Start: 09-15-2023 End: 05-08-2024 Tobacco use panel [facility] Start: 09-15-2023 Alcohol Comment caffeine: 1-2 cups per day [facility] Healthcare Start: 2000 Sex Assigned At Not on file [facility] Tobacco smoking stat [facility] Tobacco smoking consumption unknown [facility] Start: 05-08-2024 End: 10-15-2024 Tobacco use and exposure Smokeless tobacco non-user [facility] Start: 04-20-2024 [facility] Start: 10-15-2024 Alcoholic beverage intake Ex-drinker (finding) [facility] Childcare Unknown [facility] Start: 12-03-2019 Sex Female (finding) [facility] Clinical Notes 10-06-2023 to 11-06-2024 NITISH Rojas - 11/06/2024 8:50 AM ESTSusan Gelaavar, INBOUND SALES MANAGER - 10/22/2024 2:50 PM NITISH Gee - 10/08/2024 1:30 PM ESTSusan Spitler, INBOUND SALES MANAGER - 09/10/2024 2:00 PM EST Note Date [...] of: NITISH Rojas documented in this encounter [facility] 10-24-2024 Note [facility] Note Reason for cardiology [...] mouth in the morning., Disp: , Rfl: [id number] ACID-OM3 ORAL, Take by mouth., Disp: , [...] 4 to 6 weeks Angel Luis Evans MD,[facility] 10-22-2024 History of Present illness Narrative Reason [...] nursing note reviewed. Exam conducted with a water and gas helper present. Vitals: Estimated body mass index is [...] NST/BPP to have started. Orders sent to [facility] Scheduling and [facility]. Hospital to reach out to patient to schedule. Patient to return to clinic in 2 weeks for routine OIB appointment. Documented by Rose Latham LPN on behalf of: Cole Alonso DO documented in this encounter [facility] 10-08-2024 History of Present illness Narrative Reason for Appointment: Patient ID: Sherly Astudillo is a 24 y.o. female who presents for Routine Visit Patient presents today for Return OB appointment. MEDICATIONS Current Outpatient Medications Medication Instructions clotrimazole (Mycelex) 10 MG jacob 1 lozenge(s), Oral, 5x/Day, x 10 day(s), # 50 lozenge(s), 0 Refill(s), 10/16/24 8:59:00 AM ECHO VASCULAR TECHNOLOGIST, Pharmacy: [facility] [id number], 1 lozenge(s) Oral 5x/Day,x10 day(s), 170.18, cm, [...] week for routine OB appointment. Documented by NIITSH Rojas on behalf of: NITISH Rojas documented in this encounter [facility] 10-06-2024 Note Patient Education Ma [...] Follow these instructions at home: ? Take hrhp-ofb-ltwaqnk and prescription medicines only as told by [...] provider. Document Revised: 11/30/2021 Document Reviewed: 11/30/2021 [employer] Patient Education ? 2023 [employer]. Infectious Disease Oral Thrush, Adult Oral thrush, [...] difficulty fighting infection (more content not included)... [facility] 09-24-2024 Note Patient Education Ma terials [...] these instructions at home: Medicines ? Take phhe-gsw-idieymy and prescription medicines only as told by [...] and water are not available, use hand charge manager. ? Do not touch your eyes, [...] may represent a (more content not included)... [facility] 09-10-2024 History of Present illness Narrative Reason for Appointment: Patient ID: Sherly Astudlilo is a 24 y.o. female who presents [...] nursing note reviewed. Exam conducted with a water and gas helper present. Vitals: Estimated body mass index is [...] Cole Alonso DO documented in this encounter [facility] 08-08-2024 History of Present illness [...] Cole Alonso DO documented in this encounter [facility] 07-10-2024 History of Present illness [...] nursing note reviewed. Exam conducted with a water and gas helper present. Vitals: Estimated body mass index is [...] or undercooked meat, and [facility] from [facility]. Patient has been consulted regarding any further [...] Cole Alonso DO documented in this encounter [facility] 07-05-2024 Note Patient Education Ma [...] and use condoms. General instructions ? Take xqyk-pky-mydmwxx and prescription medicines only as told by [...] provider. Document Revised: 02/19/2021 Document Reviewed: 02/19/2021 [employer] Patient Education ? 2023 [employer]. [facility] 06-07-2024 History of Present illness Narrative [...] both done at the same time at [facility] at 10 weeks . Pt desires zofran due to nausea in this . Follow Up: Patient is to have labs drawn at directed and return to office for initial OB appointment with provider. Patient may call office as needed with any concerns or questions. Nurse Visit Completed by: Bernadette Reeder MA documented in this encounter [facility] 05-28-2024 Note Education Materials Orthopedics [...] not too tight. General instructions ? Take vqab-wwc-bcjzxku and prescription medicines only as told by [...] provider. Document Revised: 11/09/2021 Document Reviewed: 11/09/2021 [employer] Patient Education ? 2023 [employer]. Sciatica Sciatica is pain, weakness, tingling, or [...] (pelvis). ? . (more content not included)... [facility] 05-28-2024 Note Patient Education Ma terials Follows: [facility] 05-08-2024 History of Present illness Narrative [...] Cole Alonso DO documented in this encounter [facility] 04-24-2024 History of Present illness Narrative Images from the original note were not included. documented in this encounter [facility] 11-19-2023 Note Education Materials Caregiving [...] and water are not available, use hand charge manager. ? Change your dressing as told [...] these instructions at home: Medicines ? Take taus-fiy-xffihat and prescription medicines only as told by [...] C. This informatio (more content not included)... [facility] 10-06-2023 History of Present illness Narrative [...] nursing note reviewed. Exam conducted with a water and gas helper present. Vitals: Estimated body mass index is [...] PCOS/insulin resistance and medication was sent to [facility] [place]. Documented by Rose Latham LPN on behalf [...] glucose tolerance test documented in this encounter [facility] HealthcareEvaluation note* Diagnosis Missed menses documented in this encounter [facility] Healthcare[facility] note* Diagnosis , unspecified gestational age Encounter for supervision of normal first in first trimester Second trimester state, incidental 22 weeks gestation of documented in this encounter [facility] HealthcareEvaluation note* Diagnosis Third trimester state, incidental 26 weeks gestation of Diabetes mellitus screening Screening for diabetes mellitus documented in this encounter [facility] Healthcare[facility] note* Diagnosis 28 weeks gestation of Third trimester state, incidental Excessive growth affecting management of in third trimester, single or unspecified fetus documented in this encounter [facility] HealthcareEvaluation note* Diagnosis Third trimester state, incidental 30 weeks gestation of Excessive growth affecting management of in third trimester, single or unspecified fetus Diabetes mellitus screening Screening for diabetes mellitus documented in this encounter [facility] HealthcareInstructionsNot on filedocumented [facility] Purpose Family History No [...] third molar tooth Kenya Richter, DDS [address] [place] [address] Referral ID Status Reason Start Date Expiration Date V isits Requested Visits Authorized [id number] Pending Review 04/24/2024 04/24/2025 1 1 Scheduling [...] your procedure, you will be contacted with aht-qb-xwhrabs costs or next steps. All self-pay payments [...] the procedure: You also MUST have a telephone directory distributor driver/escort >18yrs old present to take you [...] section and content) DATE CREATED AUTHOR 01/08/2022 [facility] [facility] DATE CREATED AUTHOR AUTHOR'S ORGANIZ ATION 09/23/2024 [facility] DATE CREATED AUTHOR AUTHOR'S ORGANIZ ATION 10/20/2024 [facility] DATE CREATED AUTHOR AUTHOR'S ORGANIZ ATION 11/07/2024 [facility] EPIC DATE CREATED AUTHOR AUTHOR'S ORGANIZ ATION 11/08/2024 [facility] DATE CREATED AUTHOR AUTHOR'S ORGANIZ ATION 11/11/2024 [facility] Reason for Visit (unrecogniz ed section and content) Reason Comments Discuss cycles Reason Comments Amenorrhea Reason Comments Routine Visit Reason Comments Well Women Visit Routine Visit STI Screening Reason Comments Abdominal Pain Care Teams (unrecognized sec tion and content) Director Of Pupil Personnel Program Relationship Specialty Start Date End Date Radha Gomez MD [address] [place] [phone] PCP - General Pediatrics 10/06/23 Director Of Pupil Personnel Program Relationship Specialty Start Date End Date Radha Gomez MD [address] [place] [id number] PCP - General Pediatrics 10/06/23 Director Of Pupil Personnel Program Relationship Specialty Start Date End Date Radha Gomez MD [address] [place] [phone] PCP - General Pediatrics 10/06/23 Director Of Pupil Personnel Program Relationship Specialty Start Date End Date Radha Gomez MD [address] [place], [place] [phone] PCP - General Pediatrics 10/06/23 Director Of Pupil Personnel Program Relationship Specialty Start Date End Date Radha Gomez MD [address] [place] [address] PCP - General Pediatrics 10/06/23 Director Of Pupil Personnel Program Relationship Specialty Start Date End Date Radha Gomez MD [address] [place] [address] PCP - General Pediatrics 10/06/23 Director Of Pupil Personnel Program Relationship Specialty Start Date End Date Radha Gomez MD [address] [place] [address] PCP - General Pediatrics 10/06/23 Director Of Pupil Personnel Program Relationship Specialty Start Date End Date Radha Gomez MD [address] [place], [place] [phone] PCP - General Pediatrics 10/06/23 Director Of Pupil Personnel Program Relationship Specialty Start Date End Date Radha Gomez MD [address] [place] [phone] PCP - General Pediatrics 10/06/23 Director Of Pupil Personnel Program Relationship Specialty Start Date End Date Radha Gomez MD [address] [place] [phone] PCP - General Pediatrics 10/06/23 Director Of Pupil Personnel Program Relationship Specialty Start Date End Date Radha Gomez MD [address] [place] [address] [phone] PCP - General Pediatrics 10/06/23 Director Of Pupil Personnel Program Relationship Specialty Start Date End Date Radha Gomez MD [address] [place] [phone] PCP - General Pediatrics 10/06/23 Director Of Pupil Personnel Program Relationship Specialty Start Date End Date Radha Gomez MD [address] [place] [phone] PCP - General Pediatrics 10/06/23 FOR RECORDS [...] BE BASED ON THE PRIMARY CLINICAL RECORDS. [facility] [employer] [facility]. provides no warranty or guarantee of the accuracy or completeness of information in this document.
== END 2024-11-15 10:25 | disposition home or self-care (01) ==
LOC: FBCO 09:46 → FBC 09:47
PROVIDERS: PCP Family Medicine; Visit Provider Obstetrics & Gynecology
DX: O36.63X0 Maternal care for excessive fetal growth, third trimester, not applicable or unspecified (principal); Z3A.31 31 weeks gestation of pregnancy
CPT/HCPCS: 59025

== ENCOUNTER 2024-11-19 10:53 | Outpatient (OUT) | payer MEDICAID, SELFPAY ==
--- NOTE | 2024-11-19 10:57 | US_ITS ---
[address] [address] Patient Name: SHERLY ERICKSON MRN: [id number] date: 2000 Sex: F Assigned Patient Location: [facility] Current Patient Location: Accession/Order Number: [id number] Exam Date: 11/19/2024 13:12 Report Date: 11/19/2024 13:14 At the request of: JACKIE FOREMAN DO Procedure: US OB BPP w non-stress Biophysical profile. Reason for exam: Excessive growth. COMPARISON: BPP 11/12/2024. TECHNIQUE: Transabdominal imaging of the gravid uterus was obtained. FINDINGS: Carpet Technician reports a BPP of 8 out of 8. Polyhydramnios is present with an JET of 25 cm. heart rate 146 bpm. US/US OB BPP w non-stress IMPRESSION: BPP 8 out of 8. Polyhydramnios. Impression dictated by: Alexy Sparks Jr., D.O.11/19/2024 1:14 PM Dictation [facility] Electronically authenticated by: [id number] Y Date: 11/19/2024 13:14
--- OUTSIDE RECORDS SUMMARY | 2024-11-19 10:57 | XMS_ITS | CCD ---
Author Organization [facility] CliniSyde Care Team Providers Care Intake Coordinator Name Role Phone Radha Gomez MD Primary Care Provider [phone] Unavailable Primary Care Provider UnavailKENYA Gonzales Attending Unavailable PROVIDER, UNKNOWN Admitting Unavailable Unavailable Primary Care Provider Unavailbety ALONSO, COLE R Referring Unavailable EMILY LUNDY Attending Unavailable CELESTE, COLE Attending Unavailable EMILY LUNDY Attending Unavailable CELESTE, COLE Attending Unavailable CELESTE, COLE Attending Unavailable CELESTE, COLE Attending Unavailable CELESTE, COLE Attending Unavailable ANGEL LUIS EVANS Attending Unavailable Evonne Cheung Admitting Unavailable Evonne Cheung Attending Unavailable Radha Gomez Primary Care Unavailable [...] Attending Unavailable Radha Gomez Attending Unavailable Radha Gomez [...] Propensity to adverse reactions to drug (disorder) [facility] Repository Medications Current Medications Medication [...] 10-06-2024 End: 10-22-2024 clotrimazole (Mycelex) 10 MG jaocb 1 lozenge(s), Oral, 5x/Day, x 10 day(s), # 50 lozenge(s), 0 Refill(s), 10/16/24 8:59:00 AM 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 Ordering Physician: Cole Alonso D.O. Date of Service: 11/12/24 Procedure(s): OB BPP w non-stress Accession Number(s): [id number] cc: RADHA GOMEZ ; Cole Alonso D.O. [address] [address] Patient Name: SHERLY ASTUDILLO MRN: [id number] date: 2000 Sex: F Assigned Patient Location: Current Patient Location: Accession/Order Number: [id number] Exam Date: 11/12/2024 13:57 Report Date: 11/12/2024 13:58 At the request of: COLE ALONSO DO Procedure: US OB BPP w non-stress BIOPHYSICAL PROFILE: CLINICAL INFORMATION: Excessive growth COMPARISON: Pelvic ultrasound 06/07/2024 There is a single live intrauterine gestation in breech presentation. The reported gestational age is 31 weeks 3 days. The heart rate beats per minute. FINDINGS: TONE: 1 or [...] Bailey Beasley M.D.11/12/2024 1:58 PM Dictation Location: [place] [address] Electronically authenticated by: [id number] Y Date: 11/12/2024 13:58 Dictated By: Bailey Beasley M.D. Signed By: 11/12/24 1407 DD/ 1358 TD/TT: Demand Inspector: [facility] Radiology Radiologparam rangel MD - 11/12/2024 [place] [address] Ultrasound Report Signed Patient: SHERLY ASTUDILLO MR#: [id number] : 2000 Acct:[id number] Age/Sex: 24 / F ADM Date: 11/12/24 Loc: US Attending Dr: Cole Alonso D.O. Ordering Physician: Cole Alonso D.O. Date of Service: 11/12/24 Procedure(s): US OB BPP w non-stress Accession Number(s): [id number] cc: RADHA GOMEZ ; Cole Alonso D.O. The [address] [address] Patient Name: SHERLY ASTUDILLO MRN: [id number] date: 2000 Sex: F Assigned Patient Location: [place] Current Patient Location: Accession/Order Number: [id number] Exam Date: 11/12/2024 13:57 Report Date: 11/12/2024 13:58 At the request of: COLE ALONSO DO Procedure: US OB BPP w non-stress BIOPHYSICAL PROFILE: CLINICAL INFORMATION: Excessive growth COMPARISON: Pelvic ultrasound 06/07/2024 There is a single live intrauterine gestation in breech presentation. The reported gestational age is 31 weeks 3 days. The heart rate [id number] beats per minute. FINDINGS: TONE: 1 or [...] Bailey Beasley M.D.11/12/2024 1:58 PM Dictation Location: [place] [address] Electronically authenticated by: [id number] Y Date: 11/12/2024 13:58 Dictated By: Bailey Beasley M.D. Signed By: 11/12/24 1401 DD/ 1358 TD/TT: Demand Inspector: [facility] Radiology Study observation (narrative) [facility] OB BPP W NON-STRESS Ordered By: Radiologist Radiology on 11-12-2024 [facility] Work Phone: [facility] 11-09-2024 Outside Records [id number] TGTIFF Normal [facility] Urinalysis macro (dipstick) panel (U)on 11-06-2024 Bilirubin, UA Negative Negative - 4(70) +++ mg/dL [facility] Blood, UA Negative Negative - 50 Osvaldo/mcL [facility] Clarity, UA Clear [facility] Color, UA Yellow [facility] Glucose, UA Negative Negative - 1999(110) ++++ mg/dL [facility] Interpretation and review of laboratory results Normal [facility] Ketones, UA Negative Negative - 160(16) ++++ mg/dL [facility] Leukocytes, UA Negative Negative - 500+++ Edison/mcL [facility] Nitrite, UA Negative Negative - Positive [facility] pH, UA 6.5 5 - 9 [facility] Protein, UA Negative Negative - 1999(20) ++++ mg/dL [facility] Spec Grav, UA 1.02 1 - 1.03 [facility] Urobilinogen, UA 0.2 0.2 - 12 mg/dL [facility] Office/Clinic Noteon 025 Office/Clinic Note Patient: SHERLY [...] 124.010 kg Body Mass Index 42.82 kg/m2 [place] Body Weight Calculated 61.6 kg BSA Measured [...] lesion. Impression and Plan Diagnosis Tinea corporis (UBM64-NS B35.4). Plan: Will treat with topical antifungal over the next 7 to 10 days.. Orders Orders Pharmacy: ketoconazole 2% topical cream (Prescribe): 1 zoran, Topical, Daily, for 10 day(s), 30 gm, 0 Refill(s). Orders Evaluation and Management: [id number] Office visit - established pt, Level 3 (Order): 10/25/2024 13:24 EST, Qty: 1, Tinea corporis - Eustachian tube dysfunction. Diagnosis Eustachian tube dysfunction (TYR24-GU H69.90). Course: Discussed with patient most likely some fluid behind her ear. No evidence infection. Continue to just observe.. [Electronically Signed on: 10/25/2024 14:14 EST] Radha Gomez MD [Verified on: 10/25/2024 14:14 EST] Jason MCNEAL, Kulwant [facility] ALL CBC WITH AUTO DIFFon BASOPHILS ABSOLUTE AUTO [address] [facility] Basophils/100 WBC (Bld) 0.3 % 0.2 - 2.0 % [facility] Eosinophils/100 WBC (Bld) 2.1 % 0.9 - 7.0 % [facility] Erythrocyte distribution width (RBC) [Ratio] 14.3 % 11.0 - 15.0 % [facility] Hematocrit (Bld) [Volume fraction] 32.1 % Low 36.0 - 48.0 % [facility] Hemoglobin (Bld) [Mass/Vol] 10.5 g/dL Low 12.0 - 16.0 g/dL [facility] IMMATURE GRANULOCYTES ABS AUTO 0.34 High [facility] Immature granulocytes/100 WBC (Bld) 3.4 % High 0.0 - 0.5 % [facility] Interpretation and review of laboratory results Abnormal [facility] LYMPHOCYTES ABSOLUTE AUTO 2.4 [facility] Lymphocytes/100 WBC (Bld) 24 % 20.5 - 60.0 % [facility] MCH (RBC) [Entitic mass] 27.9 pg 26.7 - 34.0 pg [facility] MCHC (RBC) [Mass/Vol] 32.7 g/dL 29.9 - 35.2 g/dL [facility] MCV (RBC) [Entitic vol] 85.4 fL 81.0 - 99.0 fL [facility] MONOCYTES ABSOLUTE AUTO 0.4 [facility] Monocytes/100 WBC (Bld) 4.2 % 1.7 - 12.0 % [facility] NEUTROPHILS ABSOLUTE AUTO 6.7 High [facility] Neutrophils/100 WBC (Bld) 66 % 43.0 - 75.0 % [facility] Platelet mean volume (Bld) [Entitic vol] 9 fL Low 9.5 - 13.5 fL [facility] TBH EO # 0.2 [facility] TBH PLT 332 [facility] TB RBC 3.[address] [facility] TB WBC 10.1 [facility] Healthcare Office Visiton 10-24-2024 Follow-up visit [id number] Sherly Astudillo 2000 F Date Provider Department Center 10/24/2024 [id number]-SIGZPCANGEL LUIS EVANS [facility] Family History Problem Relation Age of Onset Diabetes Mother Diabetes Maternal Grandmother Diabetes Maternal Grandfather Family Status - Relation Status Age at Mother Maternal Grandmother Maternal Grandfather Level of Service:89329 [place] OFFICE/OUTPATIENT NEW MODERATE MDM 45 MINUTES Reason for Visit and Comments: Rapid Heart Rate [291709] - Episodes of tachycardia include lightheadedness and SOB. Denies chest pain. She says sometimes HR gets up to 160's with rest. Problem [860745] - Currently 28 weeks gestation. This is her 2nd . She denies having issues like this during first . Palpitations [039476] Shortness of Breath [561469] Dizziness [] Normal [facility] Urinalysis macro (dipstick) panel (U)on 10-22-2024 Bilirubin, UA Negative Negative - 4(70) +++ mg/dL [facility] Blood, UA Negative Negative - 50 Osvaldo/mcL [facility] Clarity, UA Clear [facility] Color, UA Yellow [facility] Glucose, UA Negative Negative - 1999(110) ++++ mg/dL [facility] Interpretation and review of laboratory results Normal [facility] Ketones, UA Negative Negative - 160(16) ++++ mg/dL [facility] Leukocytes, UA Negative Negative - 500+++ Edison/mcL [facility] Nitrite, UA Negative Negative - Positive [facility] pH, UA 7 5 - 9 [facility] Protein, UA Negative Negative - 1999(20) ++++ mg/dL [facility] Spec Grav, UA 1.015 1 - 1.03 [facility] Urobilinogen, UA 0.2 0.2 - 12 mg/dL [facility] C Throaton 10-08-2024 C Throat Normal throat justine isolated No pathogens isolated Normal [facility] Comment on above: Performed By: #### [id number] ####[facility] (DEFAULT)[address] [place] [address] Coding Summaryon 10-08-2024 Coding Summary HTMLBase 64 VxjxpcjfNPx6iGr+PGhlYWQ +ZG6ENPRwT13fyJCkyC8rV5 NMTElOSywgQVBQTElOSyIgb hFsII2jjBHwKZUn IC8+GT7hKTEcPntamMPxm6T 9yCP1I97wrr5jNSzevJT4ED DzHoCoqzxqy9meoSh9KVhfF mluOyBt XRJhhT18SCN2bB84Mk28jZY cvHVpd5pvmVe9KuHzENHoUH F2tJyfNFdgs8QyHQXxM07sg YPmx6N3 GWZdxWqogSVsDmYqoPQ3jZ6 vQVsahpxfm0argislLds2pm 82yGMjc6K4fYV7B7ClzmZ3I GJvbGQg CphbpHEZzA7kdoinh5irzkk kMtYbXAYoARj0OGx5QDRztV fnFwOlLC67LUX2TCPijlFrI 2FsLWFs zAacGzQ9n6M2Ea0CJ7QEWbk hA9CRCYWOUPzfbQO+PC90cj 27V4EkIcnjKwf1FXXjBRV8t YD0zO1j JJShWFslx9R9yRT8E5PzzaX alq1sh8yfJOVaMZbnF63ajZ Eot6M7UYKkwHW9EBKwvUhhQ iBzaG93 Oyc+HKKbuJosu8XxRncah0v qc9xbkFx1SyhoTJYdtrWvuT peTBN9r5YeKu5vGIAqoFA4k PJ5mC5p IyPjPaL2MFsgW543KyHyjSZ cNkxrB84uW4SnlXF+PHRyPj y1PTMseZufPZ5qG4HeWLAwr mctbGVm mFcwGW0zBNYtbmsgWOCxzM8 uUSEiM4l8RkYhDlL9DKinT1 SsZIUwhgjcNg52qB3ySaVoV uG5NSpx L9WugkG5BLMnzAAiLYntJNY 2K42nw5N7KLEbBTYaILW4hC A6eH3lgPfdacwscWRuyCznu mVydGlj TWqtBSjpD262QLSswMnkQqK vZGluZyBEYXRlOiAgMDIvMD MvMjAyNTwvdGQ+FCQiPHI0x WxlPSAn sCEqAMktAo0ijBezrXjqOD2 mSPHwefurZXTseH1sNYPoeW GryPsmTI7jGNTuislyw336A iAxMHB0 HDEsePJpN1OhiJ3rLaUtIJY pWYRcT1KfwHYzVVraT387OA jaGoT4YKFiinLqI6VeOLSsf WduOiB0 q7S9Gu9Fp5EdocojS4RviCN fFwCzVjtdEXg3X5UoFiaybE I+RQ67WVLrGP02LHg9EVW3o WxlPSdi JKCbN1PwhA7xKnOgNQMkVNA kOyc+PHRhYmxlIHdpZHRoPS qfHCLfWxCvjTooVH4mTd7oZ GVyLWNv mEbqwPJzSqBnx6olEXRiBHy oWL3klBcyM3ObgVG0YGCes9 o1Uw80P33gX9JnrFF+PGNvb WY4eVT0 mO2sMeGrBiX2IAgzD619LbD xuUBfBvkmx8osu5wgeYn0Kf G7WCVvxiDkvFgbVYU0o7HdD z93C96i IHdpZHRoPSIxNSUiIHZhbGl mpn8ydC4tOi5+HVNrpVH7sK Y1tD0aDtDjLvU4OCiyM580Q nRvcCIv Giwew7kyr0uiwPm8IsXjMVB lmnYewQacOXJ0s0SoOs45G9 UpiPudu9RhNtq4qf59qPZja 8B5zBK1 O6HaYAUyhurwoDRcdTelQY8 fGYBtbpnrJNNmwX4uTJWqV5 e2MjQsWoC8TYfjK5UueiV3T GJvbGQg RHRxnKJApI3qnqxtf8ujyhi pCxPdCYYgSBa7MHw1FDXeiZ vdEmQjVLU6VdH8BDJ0aCFtv D7vqZqh cvchzP4vFqy+KGN6vCPofAA FJA1cUsjnuCA+UZBcVCO4eV asXWvyRRFqmM7nRIIjM3p2J iAwLjA1 JVduS5UygoT5NNYbmWNvCIL jfIRLfB3xrwibn2uvjapwVn FiDYXnFDb5JXj9PJLacMstP iBsZWZ0 EcW2RJC9nSEubH4ecVulkyw yeX6qSic+BxxocUddMKD1YI h3Q2EjBeq8QPBwhFzdXW1nc GFkZGlu Tc6kzBfuwWopWD4zUSIrlcb er019TpIyz6slIXUeqDRmXL bcIAZ5L92fl3T2WSJoBWIoB OH0qEQ7 kO4ayUedhruqoGBedYdedmR wxChxWVglEQxmH584ANKjcY rmQvSwZUw1R9GoIxf6ZORgt CgxCW2h bDFrPAsqNo2mzUeykMaxNW0 pNAUjrglvb250YbRno3tdYH NwmBGtDHjmIZI0N32ij7I4A CMwMDAw SBP7wES5eI0tjNofjbgojRN mdDsgdmVydGljYWwtYWxpZ2 42BAVxwWglLuVwbIw7G8EzQ hd6LYOi eHyaHS0keAIcWCxyKk7zcZt qmAtpRC0aNONxkrzpj982Ue Tgh0miFSVzpNAzNCakGLQ2Y 40yk9A5 HRXfRKYzOLU7qNU9iS4izJq nbjogbGVmdDsgdmVydGljYW hrWJvbY651SZSvlCwxQpRdm GllbnQg XJpvXEx7G5YfAfwdrSQ+PC9 7ILUhKZ86eXWirKXvj0iccV a2BoLoAULvYGG8jJdpAGefh 3JkZXIt O96kvBQvn2E9WOYgzXrgmXU cFeZnnOF8xT2uLZsbcbhaq7 bfrxgaPchpy4qsfb10gS91A 29sIHdp ZHRoPSIzMCUiIHZhbGlnbj0 lqH0bCd1+FUNcpGP9nVT9tT 0fQIJqEuT9UPphH928GjJtf CIvPjxj p0utb6apiSu9HwR2QLOspwH guZqtRTW0e3KwIt26I28mKI dpZHRoPSIyMCUiIHZhbGlnb a8qpE9m Ii8+NSXvhGW0eXW1rU6gCqF fNbU1EVweN015ZcVgoLSlYs kkW07mV0MaoWN+KDGuYns5J CBzdHls HP0tcSJvZMlfQu8oOXW6JsZ mUqUuWYzwI7OuUBWrwzyybi pmbEL8CLAwDIZleQ89Pv6yq DogMTBw zPQUcT7ketuyu0frjovpMdF oHUZlMEn8OCu8KYKsdAgpYg RxQNB1TzZ3QWQ9eSQvoN6oa Glnbjog mY6pR9GvLKHmcvxrZi37vG8 kZjBsXfP4HYktMnl+Q1JBV0 ZPUkQsIEJSRUFOTkUgTUlDS EVMTEU8 J9VdOzt6YUXxkVzlDZ1prMB vXXwzOo3avImwxDfeLQ5rGD ZacachHOYvfK4kXIAndZCrk TgjHD3l LOJasifym225XqYkQIX4LYT rxNCiV3JroB7xUsYvHRStLA ZzF9AayIHjMPqoM989NUxsT vX7RNNo ooTiC8AtTBZtmUrcTgA7x7Q 5Nt2bYz1gCV5lOLs6DS35UK 02kSWca1C3bZJ2I0GnATIiz mctcmln eDC6JTXpKTNsaP46mQLbWGb bZx2as6K7y293KBDfKOYnrX 60Vc5yvSetCSUmuRHOxA2qj modp2kd sqxhSaZaCBBmUTy1QFb2PBT jaFugNeYvNXI6QmP4OBD4xW RsgM3wjNahphuyqB6uVma+M jYgWWVh qmQ8G9FyBbh2SBBbhUdlKJ6 sqZXnXYtgDw0jfMfttCvuCY 0yAODvqdsyZDNgpS7tDJRgu HRvbTog GE3eXHKgfultk944InHzZAL 0IIVvzMLrW1TdeH7bClOdLZ PdKSLnZ6NfyNLwAMxeQ279F GxlZnQ7 XZYoaiCqK1ExSVUgrYdmMcR 0a3B2Pt1KSL8MVSO2P1BtLl r4STXgmFlaHD7bmYQrDBxhK u0fzJou uInfES0wWNSssfdyGUXhnE3 yKHFsgMLgbMhhRK0uBMYkwv xgl960DaPpWXB7RSRopTLzU 9GgsB8h EuFhLYEeDBMkZ2DswWAgFRq uT949XSueZqW8KKNnykWiT3 RoAJStaVcrMgP2y5T5Hv6HJ DwvdGQ+ HF37jg01X7TxJftoUjw9NUP eVIV0cTA9dJ0jWTJmDCven3 U1fLE1I4PqbeZwmm0oj4vrT XBzZTog X92xlWMgu8F7QVXpfHX7PJC hkVtrUyLrdJ35Iwq+PGNvbG ryd0FbJqabj9unw6lpjEd2Y jMwJSIg fxTbtKtbEZQ1b8GjQv45J68 sIHdpZHRoPSIzMCUiIHZhbG irpq4kiQ3mIj2+EHPneBH4x YC6qT4a EaLvOyI5EFxsJ634CmGddKW mXfkjy2gni1ccnLm8PlJcIX DjtvFpwKmkSWO9n0VvQt21U 2NvbGdy j8KfVhd3jy23pPVue4V8kLC 1P5ZvIQWycmpstKSslTzeXK 4lIWHwuzgdTWOiaD6sKDNtB 3g3OlSr ZzQ3MLrlF1IdqeL9IUExsRS mPDReeGUSvK2cnkyxl8lrhn wtRtThBSVnSAn6BWf2ZQNzg WduOiBs GGM6MwS6HIU5pTAbrZ0ffHi mzpsmgQ7uRqh+IUw0x0wclL AkFQ1ebLQ8AB46PX42wDZbv 4C6aUJ6 D6TpOZUvwntvvhuahEU8OEU uOOQytM89Sd5rpTouHe8rZF FgOWG9FYEiySCwS1XplU3yT iAjMDAw FPTlF2DhlLHvVIsmM536YQw rJnW4JNLjzsWvI1RsENZykB emSdS9t8K0Gq4XBH91XW88H Z65cWHg t5G6rXJ8T9JcKYTnmidfnub muTQ2JVHpBHYjtK57Sm3qwG eqHr9uUVNfIZN1MRJsnIHvD 4LhyS2l KmOgRVHyZSCdE6QnyPHzKYc bG625QFzjKlL4TGNqjsFmZ4 SnVSQgyHxuVwF3x9B7Yg5UY a13SS87 YY23qYWpx8E4mQB4V7ClYGT csigahvkorMP7DBFbQMLhuB 63Lt8tmVvbRj2vWCVqMIT6X FRpbWVz E4IeeE7zZmHaJCJzENJuT6U tkTQlTSvgX022RXslLfJ4LN DzgyCiK5PoMNXdeVkxRyC9l 2D5Xd8Y ITwjpif3K0IwLcfjlVW+PC9 0CGPtIO10oUAcfPUwy2rvxF m6JnBqAACcOZI5eVvoLUduz 3JkZXIt Y29 (more content not included)... Normal [facility] POCT Rapid Strepon S. pyogenes Ag IA Ql (Unsp spec) Negative Invalid Interpretation Code [facility] Comment on above: Performed By: #### 9 [id number] ####[facility] (DEFAULT)[address] [place] [id number] C Throaton 09-26-2024 C Throat Normal throat justine isolated No pathogens isolated Normal [facility] Comment on above: Performed By: #### 3 [id number] #### [facility] (DEFAULT) [address] [place] [address] Coding Summaryon 09-26-2024 Coding Summary HTMLBase 64 ZtiuzbwoOIn7cMm+PGhlYWQ +BT3ERRPrG28fmKWzkJ8vN6 NMTElOSywgQVBQTElOSyIgb cIxNA2qsSJhDYWa IC8+PB2lKCZjPesxxYJrj5T 2oLG8L15ano3uTXmmkNV5PK KrHhGtelnku7rpdJa2TBxaX mluOyBt YYTmmT37PSQ8yK36Kc57zVF exYIkr6uxsBw2QhHrYXVxBB F4vSjpBBjdq0AeITZpP78yl BIii4E7 TZZygSmztBQfYpUomCV3wG8 gFTgnnezeu6ivapfiLyg6pb 87xXLiw1W0hWT5A2JhnoM3G GJvbGQg UmcmwQTCaK4ghsahf8qtarz cOuTzKYSgVJz2MSg7VCEyhF slPiNlPC99YDE0QWZsvmCaF 2FsLWFs wSblTcJ2v4I1Cl5BZ1JOUrt eJ1KSBHTNAPpkcAC+PC90cj 83B7IlFrxmLlu8KMBuMAK4s OM7eS3f IAHfZDosh3B3xYN0F0UvbnL ltc5kp3vcAQWySSprF99yoQ Xcx4T8QZHqrRO4GQVksUqrL iBzaG93 Oyc+NNLtrGvqv0WzUfxyy7n wh6wdbKf4YtbyBSPjyyAgwZ ogQZN5i2UeWl4dYIIeiNH3y EQ5cW8r HyYaXjN9BIasO439LjPaySO uKenqT63eS8FxjJI+PHRyPj a9JEVcfLpuUW8dC4JyUNXij mctbGVm lJdfQQ3gZBOndlyzZYRckA3 dFSRmQ7b1KjGqPzT6WPxlC5 QwQDNdppkoOt32fP0fTaZmP yO2WQeb B0AwgoZ8DGNuqIEwTPihKAF 6I00wb2K4GFWmXJCfYOJ2oD R7aE2wcPupjhwazGTmiWpkd mVydGlj MByaGFucY825YJNkyZxgUtY vZGluZyBEYXRlOiAgMDEvMj IvMjAyNTwvdGQ+FMWfFEE3n WxlPSAn dULhGFaiWq3urBtlzUxqXP9 iKSFxhbizPTXgbO0xFNVkkZ IquSeyJP2hTXMmnycst834L iAxMHB0 BYFxcIDbX1CjgI9dCrLqWQC hHHYxQ1JhwPXwDDpfL841PU hnHqE0CAFdljSyL0EwXSKfd WduOiB0 z7B8Gg5Ei3HheljkL3GlkFL fKdTcIjpxDNc3A6AbAzzrmU I+CO72IGPqOQ92ZAb6BMO7y WxlPSdi QKEdE1JygS3qRqUzZWIbCAN kOyc+PHRhYmxlIHdpZHRoPS lxVVKoZfCqoXbaLS8cGh9gK GVyLWNv dHjbdAPlYkQqp0qrALCxUPh dGL8fwUzzM2QuuND6AYFer0 e7Tn57P02fE9PnpJM+PGNvb OS9vWK2 mM6hBhOsFcV0UQveU062DsK giNGgUfsex4fkc4ydyKx4Or P1YWMlioIuhTgrUYE1s1WxH x85I08r IHdpZHRoPSIxNSUiIHZhbGl hni0gyF8gYb8+FPWqzQS4rJ R8iQ2iDjMgCuN8ZEzpJ564X nRvcCIv Hydfz6hna9jlzAf3RvLvGKD biwXtrPljANN2e7OjLv44H2 MtyKihi3GfIfi2zg77oDHwp 3F1eCV2 A9PrSEHwajibvETddCdcJS5 cQCUkzyldQHGeyB8iKNWzL7 o0CmJkOxL2OGmrM7DtfsB8Q GJvbGQg ILCdwIMZfJ1firmlt5vjyuu zLmHeVWIbSRh9YWq2CQYgnT yaClFjGSB1IyG5KME2mIIed A8iaMak hepprT8wGty+ZPF9kQKkiTO WWA6qGhgjcZC+WNCmAPN3zN yqAZppYYSflR1nQNQxD7x9I iAwLjA1 QAemK5GureQ9JRZokUUsVKF lzFWUfA6mhxoei2tmzizeQh XyWXNqDWz7UNc9MJTziSteS iBsZWZ0 DmM5PLI8oIAunC2cjBzpbob jrA1lBts+BreybDbcCQX1OT w3L0VkIhg7ZQYrmUhnFG6ht GFkZGlu Gh4hsWmyaKwiRR1zYKYgmsq ro845HkRtc4vyRIWlbWJpRP gsKST3X45zd3X4QWYuCAPwR KB4oQY5 sM3ryEmimkvhlYXasOrcrhZ rxPoySToyOHlnO747JCZzmM veKsJsUUx9S0KkVpz5YNRel SwnTX0w wSEoBZagAg8lwFnmwXpuJA8 gCCJosfhnq075DeMgk9zyJZ MulKGyKMdbOYR0U56vb0A4T CMwMDAw BOG5lGB2kJ8ulVqlldvbsNT mdDsgdmVydGljYWwtYWxpZ2 48WTXbfBqaJfLycMw7J4XlE xc4XRRm uFbuKL4kzQMcOWqiRp2fjUf kmObeAI4xMXQlxbmyd241Cz Mew9npOEAdaNFuVQuzPGF6B 59ku2A1 MHRuPHZhOHL7zYB8uU1mkJn nbjogbGVmdDsgdmVydGljYW cwGIzrZ954OYZayXzrZsHer GllbnQg VHhwZHz0T1TiAllnpOR+PC9 0MQKbTJ46eDEloTLbu5zcuM j7UjCrXAXbYTE3qGoqYRpov 3JkZXIt E63tvXWww8W1MWUezWwpvOM wLoKkrQE2eK4hONtgabtcx3 byevhrNcudt4vrcx23zE61X 29sIHdp ZHRoPSIzMCUiIHZhbGlnbj0 afQ0zJt2+QYCedKA9mTL1tX 7zBZMrNiY6OUteQ054DaLng CIvPjxj v0jll7ctrSz0GjQ4ZRLjcnF ibYpaVSV8y9OmHh17U49lSG dpZHRoPSIyMCUiIHZhbGlnb r2rkT7m Ii8+FVHkkWA8kWN9gE0yFdY yVuW1CAqkS667WlHevATaGo zbN28rE2KqdYJ+SWMpPfz1A CBzdHls IG5ueDWuCBxhNi5iGTX2LwO bFzPaVVxoW3FjEKXpwaxzjm rkoNS9ZISfLYVztG18Tk0ge DogMTBw iDQWdY4allayz7gdsjnrVsB mPBUzRDr9HHo3RBDplKdoBz SkLRM6DcS1TPH8gTIstA9ar Glnbjog pL0rV5XyBOQhjzosHt69jQ7 mFoEsRtJ2RKtqAds+Q1JBV0 ZPUkQsIEJSRUFOTkUgTUlDS EVMTEU8 J2VvOpo7MISjjDwmLU0baMH vYXteOf2szKzqrCrdEE8kDP EdogobMWLqeI9qVZUggRJaq AceCD8i ZFFerwucd159RqTmMTU5YGN bzDOfV2OvlQ6kUdCtYZPlFP EsS9IvkIIfBMopD312RNohK sR0IFVz ghCwP8LsDHQpzTkoYvD3p7F 8Nr5zTu8sUX8iQUw7EH04AG 15yTZvy1X4uRY0E1IeBCLea mctcmln pMZ8UNMrTLFurV67gZAlKVp tIx5kk9Q1n367JGKgKTCleH 43Dj1ptZsrJMKuvKYGbX2ld iuxp7fe lujbLnKpXBUuRUx4CZw1EIF bcNjeOpQoXIJ3CoH9TXL6jK DudA4nyJzzgdeycF3pMqb+M jYgWWVh tyG3U8MsMnz6JJRjbMikET0 bwJKoFPwxNf8woQngjKzqHA 1oUBCmvhgqLIDxxT0gUEJyv HRvbTog KH4jGTVnkbdfs367RrPiGHC 8RCOhbEDsI2WjkO1zUaZjHL FaZNNfQ7CeiYPsFRefV525G GxlZnQ7 GIRezxJnU5RlNFVtgTueJnS 8r1B1Nv3TXO6VGSB9I7PrDb o1YWGunVuoYT2uxQKxOQmiV h5zfFgx kEfrZX9sOZEvbdhkLSHjxH9 mZHEpkJBryDwoFY8qVBRypl cki353NfNqQHN5SWBpuOJzY 1ZlwN9i IaAqIYFbAEAuO7DssPXuBBm kR052RHxtTlR0ESBvumPwG6 BhXZIiuVzdJcV9p9L0El7IZ DwvdGQ+ IY03xl42A3RyUsuxZpm3PWG qBVG6iWR5xN8uQUPhLVjdi6 Q5bVX8P6OfouNbyq0ow8rbI XBzZTog P13iuJQzk5J5WSWgbQV2TOU bnAbbSrAsgW04Zrq+PGNvbG dcd6MeXazwf9pgk6efuLu5B jMwJSIg kvTdvVsqXQP7r5KzYo04R49 sIHdpZHRoPSIzMCUiIHZhbG ynfx8qqM4eYf5+MGLopRF9b CN2wG7c YiGqLvJ5HYhdG969VsWngUZ jNphgv3uzp0sjiKq0KyZuRQ FgcnYjaZmjCDP9c3RoSb93O 2NvbGdy y1ZuVbw7rr09xWUub8A4yYF 7J7FwFVOinxwgaKMgwZfuTW 0gGKJwskigZMGuaM5xCOFlU 4g4RjBt DyS7TRlvH1XhjmO1YYUkqFO aXMMnnKJFjX0bqrnga2zrau pmAbQkBZWdVGk4EAa5WFJdr WduOiBs MZK6UwE9DFL9bGVycZ0lfBk sssmehF6uDrh+DLn7k1eiqL YpIP5puKZ4YN22DD29qIWwp 2O4oOF4 F6YxCGLdwltfclgggAS4FWA bWPYgqX44Vn1kmAuoVe1gDI XqJJI9VKSosRSvM1UybW2eY iAjMDAw QKCgN4NjnZXoWAhbP336KVn hLtX3LGSynaInD0IaXFBvdY yuPhU9f1J4Uw2NQC88AX11S B09nIKn e5W0nOT3P1HnEHLdacycyym ygYT6CUZdIVTulY55Of0psN cdZz2vXZOySYB7WKSfnHRkK 2UtcO5r NfPzDBAvSYTgI7MixSBhKAl wL589RGepJhM8RTMxeuKxO0 DaRNEmfHumYsB4z9L1Ym1ZP w34ZK75 SG88yUXvc7D3qIS5Q7DeFEW mpmebsqaywYK2VFMsVZHwaH 65Zv0wpYbkXh0bRHZkHPB8Z FRpbWVz G5FjvN0sGlNyLSNdPMXyB4D ipJFzVNxiM830QUivFuQ2RP MduoUhN8IhYSKguQlfOyZ8a 0O3Gv6U ICtymor5A8RrDhoklMK+PC9 1MJWxKA73pRGxzAMke7gmtY m8GxQaEHRvKIP3wZqmWZpvk 3JkZXIt Y29 (more content not included)... Normal [facility] ED Clinical Summaryon 2024 ED Clinical Summary [facility] ? Urgent Care [address] [place] [id number] Clinical Summary PERSON INFORMATION Name: SHERLY ASTUDILLO Age: 24 Years Sex: FEMALE : 2000 MRN: Acct#: Visit Reason: UC - Throat Problem; THROAT PROBLEM LT SIDE Arrival: 09/24/2024 12:32:36 Discharge: 09/24/2024 13:30:00 LOS: 000 00:58 Check In: 09/24/2024 12:32:36 Checkout: 09/24/2024 13:30:00 Address: [address] [place] [id number] PCP: Radha Gomez MD PROVIDER INFORMATION Provider Role Assigned Unassigned Michaela Early MA ED Nurse 09/24/2024 12:34:37 Larissa Cobb BUTTON INSPECTOR ED PA 09/24/2024 12:34:58 VITALS INFORMATION Vital Sign Triage Latest Temperature Tympanic Temperature Temporal Artery Pulse Rate O2 Sat 100 % 100 % Respiratory Rate Blood Pressure /77 mmHg /77 mmHg MEDICAL INFORMATION Medications Given: Allergy Information: No Known Medication Allergies PHYSICIAN DOCUMENTATION DISCHARGE INFORMATION: Discharge Disposition: Home Discharge Location: Home PATIENT EDUCATION INFORMATION Instructions: Pharyngitis; Oral Thrush, Adult Follow-Up: With: Address: When: Rahda Gomez MD [address] [place] [id number] In 3 days Comments: You have [...] next 3-5 days, also f/u with your [employer], for reevaluation, return to the emergency department/urgent [...] 1:Oral sharon; 2:Pharyngitis Patient Understands: Comment: Normal [facility] ED Patient Summaryon 025 ED Patient Summary [facility] ? Urgent Care [address] [place] [address] [id number] PATIENT DISCHARGE INSTRUCTIONS Patient Information Name: SHERLY ASTUDILLO Age: 24 Years Date of : 2000 Reason For Visit: UC - Throat Problem; THROAT PROBLEM LT SIDE Arrival Time: 09/24/2024 12:32:36 Primary Care Physician: Radha Gomez MD Attending Physician: Larissa Cobb Comment: Patient Education With: Address: When: Radha Gomez MD [address] [place], [place] [id number] In 3 days Comments: You have been [...] next 3-5 days, also f/u with your [employer], for reevaluation, return to the emergency department/urgent [...] these instructions at home: Medicines ? Take [id number] and prescription medicines only as told by [...] cool-mist humidi (more content not included)... Normal [facility] POCT Rapid Strepon 5 S. pyogenes Ag IA Ql (Unsp spec) Negative Invalid Interpretation Code [facility] Comment on above: Performed By: #### [id number] #### [facility] (DEFAULT) [address] [place] [address] Urgent Care Recordon 025 Urgent Care Record [facility] ? Urgent Care [address] [place] [id number] PATIENT DISCHARGE INSTRUCTIONS Patient Information Name: SHERLY ASTUDILLO Age: 24 Years Date of : 2000 Reason For Visit: UC - Throat Problem; THROAT PROBLEM LT SIDE Arrival Time: 09/24/2024 12:32:36 Primary Care Physician: Radha Gomez MD Attending Physician: Larissa Cobb Comment: Visit Diagnosis: Diagnoses This Visit Oral sharon (B37.0) Pharyngitis (J02.9) UC - Throat Problem ([id number]) If you received any narcotics, sedation, or [...] documents With: Address: When: Radha Gomez MD [address] [place] [address] In 3 days Comments: You have [...] next 3-5 days, 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 It is important for you to follow up with a doctor, nurse practitioner, or physician?s floor covering printer assistant for ongoing care. If your symptoms [...] so we can reach you if necessary. [facility] has provided you with a complete list of medications post discharge. Please inform your chain builder loom control/provider of your visit and for further instruction on these medications. Any specific questions regarding your chronic medications and dosages should be discussed with your primary care physician(s) and/or pharmacist. New Medications [facility] [id number] [place], [place] [id number], [phone] clotrimazole (clotrimazole 10 mg oral lozenge) 1 [...] it is (more content not included)... Normal [facility] Telephone Encounteron 2024 Mill Supervisor Authentication Interface Message Text Called patient lmom to call office for sooner appt... we have them available. Thank you Normal [facility] DRUG SCREEN RAPID (URINE )on 09-10-2024 AMPHETAMINE [...] Healthcare OPIATE SCREEN URINE Negative NEGATIVE [facility] OXYCODONE SCREEN URINE Negative NEGATIVE [facility] PHENCYCLIDINE SCREEN URINE Negative NEGATIVE [facility] TRICYCLIC ANTIDEPRESSANT URINE Negative NEGATIVE [facility] US OB 14+ WEEKS [...] GDLNon AGE GDLN ACOG TESTING Note . [facility] Comment on above: TESTS RESULT FLAG [facility] REF RANGE LAB Clinician Provided Cytology Information Source.............Cervix Other.............. No. of containers..01 ThinPrep Vial Age Algo ACOG Crystal... FLAG LEGEND: L-Low Normal,H-High Normal,LL-Alert Low,HH-Alert High <-Panic Low,>-Panic High,A-Abnormal,AA-Critical Abnormal Performed at: 01 =G [address] [address] Melissa García MD, IGP, RFX APTIMA HPV ASCU Note . [facility] Comment on above: TESTS RESULT FLAG UN ITS REF RANGE LAB DIAGNOSIS: 02 NEGATIVE FOR INTRAEPITHELIAL LESION OR MALIGNANCY. THIS SPECIMEN WAS RESCREENED PART OF OUR SURGERY AIDE PROGRAM. Specimen adequacy: 02 Satisfactory for evaluation. No endocervical component is identified. An endocervical component is not commonly seen in the patient. Performed by: 02 Emilie Frost, Green [place] Department Supervisor ([facility]) QC reviewed by: 02 Lauren Ness, Supervisory [place] Department Supervisor ([facility]) . 02 Note: Note 02 [...] <-Panic Low,>-Panic High,A-Abnormal,AA-Critical Abnormal Performed at: [address] [address] Melissa García MD, Performed at: =G - [facility] [address] [id number] Clinical Laboratory Service Teacher: Melissa García MD, Phone: [phone] Performed at: - [facility] [id number] Clinical Laboratory Service Teacher: Melissa García MD, Phone: [phone] SPATULA-ALONE CERVIX CLINISY[facility] RECURRENT VAGINITIS (HTRX)on 08-15-2024 ATOPOBIUM VAGINAE 0 [facility] ATOPOBIUM VAGINAE Not detected [facility] BVAB 2,3 (BACTERIAL VAGINOSIS ASSOCIATED BACTERIA 2, 3); MOBILUNCUS SPP 0 [facility] BVAB 2,3 (BACTERIAL VAGINOSIS ASSOCIATED BACTERIA 2, 3); MOBILUNCUS SPP Not detected [facility] SHARON ALBICANS, PARAPSILOSIS, TROPICALIS 0 [facility] SHARON ALBICANS, PARAPSILOSIS, TROPICALIS Not detected [facility] SHARON GLABRATA 0 [facility] SHARON GLABRATA Not detected [facility] SHARON KRUSEI 0 [facility] SHARON KRUSEI Not detected [facility] CHLAMYDIA TRACHOMATIS 0 [facility] CHLAMYDIA TRACHOMATIS Not detected [facility] GARDNERELLA VAGINALIS 29.341 Abnormal [facility] GARDNERELLA VAGINALIS Detected Abnormal [facility] Interpretation and review of laboratory results Abnormal [facility] MEGASPHAERA (TYPES 1, 2) 0 [facility] MEGASPHAERA (TYPES 1, 2) Not detected [facility] MYCOPLASMA GENITALIUM 0 [facility] MYCOPLASMA GENITALIUM Not detected [facility] NEISSERIA GONORRHOEAE 0 [facility] NEISSERIA GONORRHOEAE Not detected [facility] TRICHOMONAS VAGINALIS 0 [facility] TRICHOMONAS VAGINALIS Not detected [facility] GLUCOSE TOLERANCE 3 HOURon 1 10-11-2023 GLUCOSE TOLERANCE 3 HOUR mg/dL [facility] Comment on above: GLU FAST 83 (<95) Co l: 08/10/24 0708 GLU 1HR 131 (<180) Col: 08/10/24 0812 GLU 2HR 124 (<155) Col: 08/10/24 0912 GLU 3HR 95 (<140) Col: 08/10/24 1013 [facility] Urinalysis macro (dipstick) panel (U)on 08-08-2024 Bilirubin, UA Negative Negative - 4(70) +++ mg/dL [facility] Blood, UA Negative Negative - 50 Osvaldo/mcL [facility] Clarity, UA Clear [facility] Color, UA Yellow [facility] Glucose, UA Negative Negative - 2000(110) ++++ mg/dL [facility] Interpretation and review of laboratory results Normal [facility] Ketones, UA Negative Negative - 160(16) ++++ mg/dL [facility] Leukocytes, UA Negative Negative - 500+++ Edison/mcL [facility] Nitrite, UA Negative Negative - Positive [facility] pH, UA 5.5 5 - 9 [facility] Protein, UA Negative Negative - 2000(20) ++++ mg/dL [facility] Spec Grav, UA 1.02 1 - 1.03 [facility] Urobilinogen, UA 1.0 0.2 - 12 mg/dL [facility] GLUCOSE 1 HOURon 07-31-2024 Glucose [Mass/Vol] 132 mg/dL High NINF - 13 0 mg/dL [facility] Interpretation and review of laboratory results Abnormal [facility] Coding Summaryon 07-16-2024 Coding Summary HTMLBase 64 XdjqmtppESo8aYw+PGhlYWQ +LB9PALLvM79inFWvnM9hH8 NMTElOSywgQVBQTElOSyIgb oMmKV2czRSvECVw IC8+GX0iFKXvNujprKFkh3I 2nFI3I48qor0rJTzejVF3BV EjLuGoxicpc3yueVn0WDncK mluOyBt NCSqjL88SBL6zU63Ne72lDL zmOPrb8jyiNu5EcDzQHJkQA B2pHwzRPxcp5TqIPRzQ05np OFaj6J8 QVFeoGnnuQLaXhVawNP7hR2 hCZsadbcul0dahjdzAuj5kb 73iTLoq2A2zBD9E0VlyzC8N GJvbGQg YprshFXRcS3erqopy7byygr wLlAeBFDkJDv7HCv7QXFuxM gxRbNlZS44BEJ4GRFvizFrM 2FsLWFs vZhfMiT4a9F3Du7SS0PFEri uH9JVJAJJUGfsiAK+PC90cj 15H6DfFtenAfj8SNXpRYG2u VW8eG0s QBHfRCggy3Y8tIX0B2BuyiG lpy6rj3nbJFOrIAbxD04fdK Ssl3M3KEYpsQM2WKTqwHeyY iBzaG93 Oyc+XUHisKntl8SoDpyxq3q wv5uarZr2UtizTCDtolGkrQ ajMIZ5o0OnOv0uMJKzmQX0x LO9eY1o PaMcOmI9ZTokV441ZdScrLX eRstoZ26nY6QsdVZ+PHRyPj b7UMCrjDdrBA0mE3MdGVRzy mctbGVm kWkwNZ1bDOMtdtpnGKUjgN4 hXMQtF9q7TvBeCwB2BEruV4 KoLVKlrgwvHu33tG4fXaRsE dG7WHcy V2NbdkV9UTLdkKRfCVrbPRZ 4F84ib1Z0XWRuOPZnWNX8yF R5dM1xbKnhxbmtoTTtjKntp mVydGlj UJdpWFswQ060YABocNmcLgV vZGluZyBEYXRlOiAgMTEvMT EvMjAyNDwvdGQ+EPAzPHX5l WxlPSAn jPXjNRegWu9edSqbqEtbZK6 pQWQjtznuOZEguW3uRFQkyK FdfQtjHV2rHFYvgiyjg991C iAxMHB0 HYOdvBDyB2EtfK1vOiTbIYA vMHUaJ2QvgIQmVKxpE836UM rtFqX8PSNvyhDwF3DgULXiw WduOiB0 v4I9Fc1Kk7YopvkyM8PnzSR rVqIiImchGRr0Z2IeNjhokN I+AE49TAUaLP78APw0ZER4m WxlPSdi SGCjF3UveI0dLzTrHYXkEZB kOyc+PHRhYmxlIHdpZHRoPS aiALQqGjFndBjiNO0uAn4nO GVyLWNv hDnzmLMpXwKob5glWOEvXMi vJA9oiRjcS4XigRQ6FUPpb3 r7Wr84U04wT6TqhVL+PGNvb UQ9gEY9 wC1cJiKiGgD4XDdaJ979EbQ ojZQyAfjtv1baf7yifWj9Sb P1IKHapfQmaAguSIL7v1FqQ m46M32s IHdpZHRoPSIxNSUiIHZhbGl iin5ssF3xOr4+CSOfdAS7zO E2wT6jSwFePyH1CPhnZ739W nRvcCIv Yszuk5ksz9dxvRe2KkUcYID qkhIahOjpVNS9i2PvTl68A7 WupDiqb6LgKow5vq25eUPkw 2S5sGK2 M7BcKXHkffhfiJXtzQrpOU9 yRMXbqqopTNRejS0iDDTaO4 c8JvHfGdJ4CPnuF6IzajV4F GJvbGQg ZGWfsJZSqW2nwinyw9ebaow cBhKnHNUiYWg7GHs3DRPalQ egHvUbJGR3PtN0DKF2wRKuz X5liNri qyitzS4nTqe+AEV7dICrkEY QLP7cLiyipRQ+KOWgCFQ8cW xhDLidOOZnzO1nBSEvH7z1S iAwLjA1 VWhkL9NxpnS0HRHmgZOgWWK gtSZQoO4abarch4hnhtzvJz LaWURuOGh9EKw9QJXdnSukT iBsZWZ0 VeA3PNL2kTJjnS2mmWymcgm ieS1rXjf+SmfgbXjaUPC2GG w8O2XrJst3KSEyjAzxRA4sn GFkZGlu Un5qtVgaxHwnOT7gCBUfixs xr326AzZwx0slCRUblVLhQI wmSEH3G11kb2T5IDJqQSOzX TG6hOS9 yT6qsKpxxksodILslOefonQ euLndCTckEIabO832DSLyuE ddFgItYRt4V4EsAme2LTNmp DbmIM3s fCLtWCxxBx5zhEtwiWkdMY6 dKCAjjlzbo249TmDpb8hzPW SpiKMgUXkzLBW5T69jh6A0T CMwMDAw GRE3vXK6iF1utLsxlbbwhCN mdDsgdmVydGljYWwtYWxpZ2 52TFClzElgFnEqsZc8B7KzT nj8SRJn dDetRD7qpCQtEAilTn7pnJl bxIwhYC1cWOHefjekv792Ie Pps9fgEJZgpFSgHJqbUJS2Y 55pv6K1 NQSlMJHwNBG1sUU8wI2wfVb nbjogbGVmdDsgdmVydGljYW jwUHlaO961DUKglVkwAlDut GllbnQg JZrkLUr5J6GeXhhpxVL+PC9 4VMLzFC68pCPnvTLwl4dkzK c8RlSfLPAyWLJ1uRvpHJeos 3JkZXIt A04ddQBca1R2EXNrkRfrnBJ vLzWulOA3kG0zHLraziyyk6 cjjduzLnjmo9qvbz29jW81U 29sIHdp ZHRoPSIzMCUiIHZhbGlnbj0 sxX0tYy4+KKZvaBT1gAX0mU 1aHGPoZsU4QVrlD401JhZlp CIvPjxj c6fvm9rumRz2NnH6ASQdqbF cnOygIZF8l2NdKl29K78iIJ dpZHRoPSIyMCUiIHZhbGlnb h1gqX4b Ii8+YIXyeSM3pTJ0dQ4eHkR eRmH3JFqmB928UzBeiCJwMx nyQ33yR0KanXN+SLApLyd8V CBzdHls RG4gkGKvDAfsNf1wAYG9ErO jNeImAUhuO7YaEYLpnwelqj vgxIW4OARzFAXsfT67Ji5ls DogMTBw qYQPxZ3oxdbkd6igynywOgA eAIJpUUt6JOa2SLCxtZorVm UfGCI6GrQ1XRR3yGLtpK0rz Glnbjog aZ4eS8FaMXPmuzvyKg26eA8 iHkQmPaQ7BNgxUov+Q1JBV0 ZPUkQsIEJSRUFOTkUgTUlDS EVMTEU8 A5FjUjt8PQOylCcnAL3fvMM dZHbsYp7joBxwjHldLZ0rSM PwywraSFCckW1vSZJmgOYhf WtjGU8k TZKbjvjuk038KqQdEAP4EIN cuHGkG9NejA0gCzRiCITsBI UqW5IshCUnKDvbO316TCvhT vU1UNFj ijUaS6NsOARoeRhmMtF3a1S 9Uz4aEt7fXT4wTZa0FL24SS 14vRDln7F1hCU7M8RkQTWrc mctcmln bQL5NSJsNXWmpH54rOMuCGy nOc4yd1T8d104TGPsWUMgkX 26Tw4sjKjaZABtjSFJyF8am mbsb4pd fuykJcTgKFQxWTy5WKm0ARL gnUzuSiZkGQU9GpS2QHC0sL JrkS3taHyndyzsnC4lUkp+M jYgWWVh tuL8X3AdIkz3BNFhvTqgLK3 xpSQkHJzhDr9odNlkoAzhEB 5pGVTpeswbAUNlxN0lLBDpz HRvbTog BG7zREOnkqfuf467JtXgSKS 7MKGbaKUpM9KfeC3dBbKzBW OiZEEiE6GjcWWtZTxyY779X GxlZnQ7 LTGikfVaW8GrYLDfcVllQdQ 2n9B0Pi8NJK8XMNO8P6OvEq n4JHAbpZeoGA5gjFWjOXdeK p4beWol xCctJR5aLHYvztboXRYxbR5 uSROjvTUauYewXI2mAIIqqn rwe014UkSuYOU8CFNwsGKrT 3PaaV3k IbJgMFEfBSZtE9PvmQNaZQz uB397AXhlAfK2IQLmwvGhR3 SoFWNklWogAtX9x7I2Tu9XT DwvdGQ+ CN14ze69U8VfBkxhFbu7CAT mAWV0kFW3oX4rBWMaZAlxz8 S5wUA9Y8QklfIybg2pi2dgW XBzZTog T75zzAWsa6P2NQHuxYI8FUL jtFmzFqPkoP17Hqj+PGNvbG ujo2ZmTkuzx9jlt3gwiMw6F jMwJSIg kwZlfJolOBT2r1LwFa05U58 sIHdpZHRoPSIzMCUiIHZhbG ueyo0zlL5vGv7+VFKofCU3v ZY2uV3a DjCiBiS1BIfuB674MgKuhXF pSetbw7loe8cctQd6FgJyDW ZmxiUlmLruKYD8h2EtRg28S 2NvbGdy q9MxPfk3se89mAFey6N4zKA 1B4TyABVonpfckGDlcXwiLJ 4dWFNhjdnvIEMzkD8jICDiR 5a7JiWo WcH8IAauN7HaqaM3EWRocNS pEEVhhHZYrL5geeqjr4wzec cnFmHkUKQlOSe9ONd2OAHzw WduOiBs KSQ6AxD3YBI0nKZzuZ3eqCo helvwtJ4xKvi+CYs0p2qbgT FiOF2djWO7AO00RR17rUJci 1C5pCQ8 Y0QzDFKmwypfbgrtuDY2JHK sNBTroE33Ng7mcNycXz2cRV VzEEX2MVUlgUJlE7RlrS1oX iAjMDAw MBHeW0KlcFJhTVevJ396NLi fArL0BSUwskNgY9IxOMZxaU yhRmW4s3F4Ih3DAB64FX97D L62hADa u1A6nVF4V9HzKSOaiyyafis amZR1PWHkCGQjnR37Ns5ycC miHi2uSVTbYAI0TADdoVTfI 3BkdL7z UjCpIEFpLSRhQ0OanAKjMEe lL905JVvkDeZ3XHFjfyJhI1 KlCEHwzYaaFjM5n0E5Uj6QR w72PO07 RV23pZCne3W0bSW4G5IiPLQ upzwubwtplHQ7ZIExDTQigO 23Ns2wrNccXe8sMYQvPEW3C FRpbWVz W1HvpL4wDoXpWMQaYPVjU6L pyUSnPSgjT832KBrvNlR0TG JcyfLeQ5LrGJGyiWbmLqZ6x 9E8Xv8T HEpuczh2D1YuCveopAT+PC9 0RQUyHW46gYIzbQOgi5wuvD r1MmUaMUYrZBQ7nVyjEKzbe 3JkZXIt Y29 (more content not included)... Normal [facility] Urinalysis macro (dipstick) panel (U)on 07-10-2024 Bilirubin, UA Negative Negative - 4(70) +++ mg/dL [facility] Blood, UA Negative Negative - 50 Osvaldo/mcL [facility] Clarity, UA Clear [facility] Color, UA Yellow [facility] Glucose, UA Negative Negative - 1999(110) ++++ mg/dL [facility] Interpretation and review of laboratory results Abnormal [facility] Ketones, UA Negative Negative - 160(16) ++++ mg/dL [facility] Leukocytes, UA Positive Negative - 500+++ Edison/mcL [facility] Comment on above: small Nitrite, UA Negative Negative - Positive [facility] pH, UA 7 5 - 9 [facility] Protein, UA Negative Negative - 1999(20) ++++ mg/dL [facility] Spec Grav, UA 1.025 1 - 1.03 [facility] Urobilinogen, UA 1.0 0.2 - 12 mg/dL [facility] ED Clinical Summaryon 2023 ED Clinical Summary [facility] ? Urgent Care [address] [place] [address] Clinical Summary PERSON INFORMATION Name: SHERLY ASTUDILLO Age: 24 Years Sex: FEMALE : 2000 MRN: Acct#: Visit Reason: Vaginal discharge; VAGINAL ITCHING/DISCHARGE Arrival: 07/05/2024 10:15:34 Discharge: 07/05/2024 10:59:00 LOS: 000 00:44 Check In: 07/05/2024 10:15:34 Checkout: 07/05/2024 10:59:00 Address: [address] [place], [place] [id number] PCP: Radha Gomez MD PROVIDER INFORMATION Provider [...] Location: Home PATIENT EDUCATION INFORMATION Instructions: Vaginitis, Bedv-qt-Jrdz Follow-Up: With: Address: When: Radha Gomez [address] [place], [place] [id number] [employer] (1) Within 5 to 7 days With: Address: When: [address] [place] [id number] [employer] (1) Within 1 to 2 days DIAGNOSIS: Vaginitis Patient Understands: Yes - Patient/family/caregive r verbalizes understanding of instructions given Comment: [facility] ED Patient Summaryon 024 ED Patient Summary [facility] ? Urgent Care [address] [place] [address] PATIENT DISCHARGE INSTRUCTIONS Patient Information Name: SHERLY ASTUDILLO Age: 24 Years Date of : 2000 Reason For Visit: Vaginal discharge; VAGINAL ITCHING/DISCHARGE Arrival Time: 07/05/2024 10:15:34 Primary Care Physician: Radha Gomez MD Attending Physician: Spenser Fang Comment: Patient Education With: Address: When: Radha Gomez [address] [place] [id number] Business (1) Within 5 to 7 days With: Address: When: [address] [place] [id number] Business (1) Within 1 to 2 days [...] and use condoms. General instructions ? Take dgus-mxx-rrdpccz and prescription medicines only as told by [...] provider. Document Revised: 02/19/2021 Document Reviewed: 02/19/2021 [employer] Patient Education ? 2023 [employer] Medication Information: The exam and treatment you received today in the [facility] Emergency Department were for an urgent problem and are not intended as complete care. It is important for you to follow up with a doctor, nurse practitioner, or physician?s floor covering printer assistant for ongoing care. If your symptoms become worse or you do not improve as expected and you are unable to reach your usual health care provider, you should return to the Emergency Department, we are available 24 hours a day. For those (more content not included)... Normal [facility] Urgent Care Note- Provideron 07-05-2024 [...] History Medical history: Resolved Ankle fracture, left ([id number]): Resolved. 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 Surgical history: Cholecystectomy (53093375).. Family history: Anxiety Father Sister Diabetes mellitus [...] doctor a (more content not included)... Normal [facility] Care [place] 024 Urgent Care Record [facility] ? Urgent Care [address] [place] [address] PATIENT DISCHARGE INSTRUCTIONS Patient Information Name: SHERLY ASTUDILLO Age: 24 Years Date of : 2000 Reason For Visit: Vaginal discharge; VAGINAL ITCHING/DISCHARGE Arrival Time: 07/05/2024 10:15:34 Primary Care Physician: Radha Gomez MD Attending Physician: Spenser Fang Comment: Visit Diagnosis: Diagnoses This Visit Vaginal discharge (939741574) Vaginitis (N76.0) If you received any narcotics, [...] documents With: Address: When: Radha Gomez [address] [place] [address] Business (1) Within 5 to 7 days With: Address: When: COLE ALONSO [address] [place] [id number] Business (1) Within 1 to 2 days Medication Information: The exam and treatment you received today in the [facility] were for an urgent problem and are not intended as complete care. It is important for you to follow up with a doctor, nurse practitioner, or physician?s floor covering printer assistant for ongoing care. If your symptoms [...] so we can reach you if necessary. [facility] has provided you with a complete list of medications post discharge. Please inform your chain builder loom control/provider of your visit and for further instruction on these medications. Any specific questions regarding your chronic medications and dosages should be discussed with your primary care physician(s) and/or pharmacist. New Medications [facility] [id number], [address] [place], [place] [id number], [phone] terconazole topical (terconazole 0.4% vaginal cream) 1 [...] Eating food (more content not included)... Normal [facility] ALL CBC WITH AUTO DIFFon BASOPHILS ABSOLUTE AUTO 0 [facility] Basophils/100 WBC (Bld) 0.3 % 0.2 - 2.0 % [facility] Eosinophils/100 WBC (Bld) 1.2 % 0.9 - 7.0 % [facility] Erythrocyte distribution width (RBC) [Ratio] 12.9 % 11.0 - 15.0 % [facility] Hematocrit (Bld) [Volume fraction] 40.3 % 36.0 - 48.0 % [facility] Hemoglobin (Bld) [Mass/Vol] 13.7 g/dL 12.0 - 16.0 g/dL [facility] IMMATURE GRANULOCYTES ABS AUTO 0.06 High [facility] Immature granulocytes/100 WBC (Bld) 0.5 % 0.0 - 0.5 % [facility] Interpretation and review of laboratory results Abnormal [facility] LYMPHOCYTES ABSOLUTE AUTO 2.5 [facility] Lymphocytes/100 WBC (Bld) 21.2 % 20.5 - 60.0 % [facility] MCH (RBC) [Entitic mass] 29 pg 26.7 - 34.0 pg [facility] MCHC (RBC) [Mass/Vol] 34 g/dL 29.9 - 35.2 g/dL [facility] MCV (RBC) [Entitic vol] 85.2 fL 81.0 - 99.0 fL [facility] MONOCYTES ABSOLUTE AUTO 0.4 [facility] Monocytes/100 WBC (Bld) 3.3 % 1.7 - 12.0 % [facility] NEUTROPHILS ABSOLUTE AUTO 8.7 High [facility] Neutrophils/100 WBC (Bld) 73.5 % 43.0 - 75.0 % [facility] Platelet mean volume (Bld) [Entitic vol] 9.5 fL 9.5 - 13.5 fL [facility] TBH EO # 0.1 [facility] TBH PLT 378 [facility] TB RBC 4.73 [facility] TB WBC 11.8 High [facility] Outside Recordson 06-11-2024 Outside Records [id number]#[id number] [facility] Coding Summaryon 06-08-2024 Coding Summary HTMLBase 64 KxsmusfxJBu6hKx+PGhlYWQ +OB4AVYWkX43taWAbuA1cZ8 NMTElOSywgQVBQTElOSyIgb mYgLN1icRCgENSl IC8+MI6pTMTyQnzanXFec5Q 1uXD1G89dnf4gOZycyDU8GG HzYyVzsjcde0itkDx7TSmvK mluOyBt KQZedL62AVB2vE19Ta58zEL jtALuw0vcgDp0HvLuRJViJH T1aKssGQags6HzARBlV58cp RIwv8R6 NLKfnCbmhITuWyNhkXH8pC2 xZHqhttcdy5nxzvouFet1xj 06mNSfm2M2wSY5H6TpdkI6H GJvbGQg PvrugRGPwX6owuvuf7jobbp oOeFnVGBmNOe0EYh0HMGhpE twFpWaBM76UCL8XJKgceQyE 2FsLWFs hOpoTwS9t7L1Af9SS0QLRri fZ3JGVDWUEXqugCF+PC90cj 15I8FqHdunXta7EGKzIGH3j WN7jB6a EKXpJHxpg3A7hYC6S7VbypP xee5ja6glRVNaQPmqE31czP Usw0V4XNAgcYQ1FVIxhDbqN iBzaG93 Oyc+VKIbfNwmk9ItIycag2t dm0ndqNx6MmdyQJGvfxEwfV vbBCY5x6HyPw7vTPEfqSA3q HQ7aA2q BsAuBvJ9CRxnO173VsPsoKH nHuzbH95uD2QfmHG+PHRyPj a6SMCyzGfwPW2jD0JaMGRea mctbGVm qXuzOU6fAKTpaamuVWSwsL9 zZRHaG8z5CtDtMwM3BCsjG0 BdWKTfcxqcIz19vV7zAvKhA fA4KIxo E2EupuM6ZEBqvLZnNKaxPFL 9T47xd7X4FDUkDQLoNQC3wH A4gN2ivXnbavwwkWHutBust mVydGlj JIkbMMmiD803RLJzzYahSpQ vZGluZyBEYXRlOiAgMTAvMD QvMjAyNDwvdGQ+PDOuWIW9t WxlPSAn oOBrKElyMy8nxKubaGwbPW6 mVECewupfZXKcaB0yRCSndO FitRtqNO0wCHViehyok886L iAxMHB0 RZClwOXyE6MshD1fNiLzBGL sMEFqP4NqjKDeFFvmD079LT vgFkC0XNEaeyUvP8EuGJSwy WduOiB0 y3T9Wk9Ft5MjdysbK7WfkPO yOrBqDqeoONt0X6CbBnlqwB I+IH49UTUuPF28BXr9LUB9u WxlPSdi XUApF3PueK7uEiBxWEKlFZD kOyc+PHRhYmxlIHdpZHRoPS upNCXrIiUszLbiOA6qAa7xD GVyLWNv zEjcjJScNdTtx3hxYGWfXAi fYJ2lfKbiZ0BvyBZ3RTEuu0 z3Eb07A38dW2TfoPM+PGNvb EY8uZA3 jC1cHiKqOgU3NQaiK197HcA drJObJkphh0pyq0frlJf9Kv L7WZVtgpWlvMmnQMZ1x0JbX a08X47c IHdpZHRoPSIxNSUiIHZhbGl ism8iwR5oXy6+BRUgiOB1oA R0mV6wHwIgEgC4JEuhU325W nRvcCIv Ldnrc8eqc5lauLu5VoPyHIE rqmErlVhxANW1f4YzOs58R1 DlmGzvp5FzIvy4mw96iSDuu 2G8vAW0 M5ZcSQXnpmdkhLEldAbfLA7 fABFnliaoACQudP3pCWQiY0 w2CuCsLlD3YKquU1TfukY7V GJvbGQg YSAnaSPIzS1fvboos0euwgc iSmOjOHXiTXe9PIb4YCFblX hiYqEiTCJ6AgD2JVM4uFKfk M5quJlb dcjgxD3bDva+RRW4fBCdqYS DOV3zIdvvwGQ+HXWdCQE0xH bhFYjePVUqrJ7rHCWlY3q1O iAwLjA1 JNohU9KjzuC6VWGbuSCuPBS bxQNEcI2nyewih9nukpjbNr EjCCHqWYr6BEa9NFFbwGnwB iBsZWZ0 AzK3CTT8bJWqpA1iaIqcffg htI7cXxz+FoyzbYozJNF3ST u8V3GtNxv5JJTuaDsjZR4nl GFkZGlu Lm8qnMeswMzjKK5bMHBwhne er838XpNqq6sgQVQdfDRfLN tmWPB4I80ge1K7GIWcBIQeL VR2tJP1 yT7gaSisctenfFRqvCppidZ wmLvsYAkxHVbrD688AGHdcZ nvCyTfABf5X7FcMbp7YXTit ChsWH0x bPRhASaqXb3rgYrasYelXR7 nSVOfiozan170CvPqt5xjYF DhcXOfRLeyIXA0U03ua8F5M CMwMDAw SVI9nRX4dU2thRopyxvslKC mdDsgdmVydGljYWwtYWxpZ2 47XSUqhAgaPpQrwTl0P4QcM aw9JFEd zJzyRB6fqBNaEOsuVa0fuHz ofHziDS2pWAKuivlbt322Bu Dnd7kkZHLggSAoXMdlKNP0R 27zp6O5 JZYxFJYaJFS3vQN2xJ3juKw nbjogbGVmdDsgdmVydGljYW ywJXvbW519OSYxpCnyFrFlp GllbnQg EOchRBj0N6UaApvlaCQ+PC9 2ULEcLV91aFNupFVyk4ehtP d5FhKxKJYdNJL1fBpwYPond 3JkZXIt F79ddEMsi9J6ILUhdAvhtGX zUsFhxYZ8oS6aOFaefmxiv6 rneridCigiu9izoq85oP77R 29sIHdp ZHRoPSIzMCUiIHZhbGlnbj0 inC1eWf2+MCZysYY5zMU7nS 7hFOTnZiN4JTroG941FbAmy CIvPjxj v4osr5mowIa4SeY6VAPwigX auRkgPFL7p7WrSc46W27sSV dpZHRoPSIyMCUiIHZhbGlnb b0fiZ3n Ii8+VPZxyYC4dEP2tX8cNdV wPfH1EFogP619EyPicCAwWb aoJ66qW6OyaOJ+XPYiXxq6J CBzdHls XP1iyFXlQOvfMb1iXDD3OaI tSoXmXQuaZ0QpUELrvdwzsu amcWE0WPEdBKEhdN81Vt9mx DogMTBw jYYDwG9owtsoi3hnsxrkHnK rEIJbFSq9OMg5LZJfwKzaNe AqYPL9ScM9CJS0pYYajJ2fm Glnbjog jU5aB8MdIGQwrupfFb87mK2 vCkQnUiT9EFnkGdo+Q1JBV0 ZPUkQsIEJSRUFOTkUgTUlDS EVMTEU8 P8HqNaa6QZAliDrsPF8lwMH tKCmxCq2pkXlgjCgtLV9fOD EcuhokBGMvzK0kCXIobREsq FfqYT1s BMBovisxy636VyBaDGJ1XKU xtDCaS0VkfR6aUvDlLMRiWU OyF2BzaKUaCXhxD154LHrqQ bT7QIZl mjEdL5CoAMZwhDtiMlL5y7D 1Ve9bSe7tMQ1tVBr1SK80DW 50fJXqs5F8mBS1V4BsBTIuj mctcmln fTU7JIHrEZElxO68dIHjITc qIa6vi5C9t552CXVzETPgdW 52Re5fcWyjJEQpcEHUnD2cc bhpw7re wlwwQwPtSTUtAHr8MBz2ASM zzCnnFzSiSLJ1NuT7UXD7bJ TahQ2llXpzeoygkV8wAqu+M jYgWWVh yjX7J0GuAcz9PEIczGydLE1 ojGXsZUedKr8szUozaBooNM 9mPNJtmdmgTIMnkD8eOXCto HRvbTog KR5wICPyoupzj115ZsKlTIW 8HIQkfGZxQ9WokA3uHqPuUD EwQSGkU5TsrWPhVZskM038J GxlZnQ7 JBFwimRlM4UtMFFjjSksBqX 9e4D3Cc6VEH9MUOJ9L0XpEj w3KCQthDhpBE5bxEWzLMleB k2vvKqh iUfbRI0cPRDjuahmNMYxsL1 kDMBqhDGsbAvwDR4dSZXujm uzf780VrMvFGR0NSNscYEsS 1VjfP1x ExDjWZKxWWJeV8ZurEPjFGa sX310YEttFjU2BUOkrbQkG6 JaNGOgzEsyPcP9r8J1Bo3Cx ZVlH3Rj W6m6F2OkZhlrsJE+TX10YLR zQV85rQDbrSDiu5chkUs9Mt BuVOQhSKY3eMcfLAimr4JuI WBlL27r yECwl5G3CEMvkFldkKMoUkY tlSZ3eW9vBHhhdojgg0sfwy sxUyxtz6qjhu98jS74E94nY HdpZHRo GRFvLWPqQCXclYfgso6sxU9 wIi8+OORimER5bBP4hI7yPq DkVlC1GGvhW979GzIhkULxU cbhm1qd n6melXx6BqQnPUJnrgEdcFe pZLD3z2BvHf17E12rVFeoQP TrRFEcNLCxEFJevTvhsg2zk G9wIi8+ HG2af2ouvi42oU12xRG+PHR gYEO2lTdmQInsAOYtlR8oCB edZtP0VHNuEtQqbN82dJOlZ FmcMp1s mEjwqIlkGD4wCNDvgaaun29 1JhFsw4lwCKTpwNGzXZrfGI K2O45ry4O9HOLeNWUmKBR6y ML9sH0y bGlnbjogbGVmdDsgdmVydGl xVPynEXupR899NUVqgMvpFt GjtKUgN5hwnnQLKY7tQcjpu GQ+PHRk GKA1rVghTYzsJFEkyO4yLZX yO7a2SwQpAnR4CKdvX1Byyu N1DBGlpCZuCFKfjXHSqH9eh kvsv8pj hvtgCdWvSZIyNHr3JZp1QYD fpLdoZzGnPNB1UdG8NHQ4zB PmcQ9sjTmguhcdlG6xGro+R klOOjwv dGQ+PSRiITF9iRmyCQzxUOO mvS2aRDBmX3t1DnNjMpW8RM tgQ9QmgcN0MRDerUBmEDWfs LSMlV7k vhiuz9xeqmbqTuRdTVHqVEk 3VSg6KCKgbEjsBgCfGAW3Ow U4BBY2qNIgdZ5goHfoykskc G9wOyc+ TVJOOjwvdGQ+BUSzXGS7vCw iZLhpFCIfcB4qIIOvI7z5Ky ZbXlH7WVjeP3SlvaD9ULScn GQgMTBw lQYViL0lcbjyw3uiighhXpY pMYOdXHr6IKd5BDIumCqpVf BsGNR4IhI6VVT5jDJejU1cc Glnbjog uK1pSpg+OSN9MOX1WV04XT9 1M0WqPetvmUAhnMY+PHRhYm xlIHdpZHRoPScxMDAlJyBzd JdmZU2d Ym9 (more content not included)... Normal [facility] HCG ( test) Ql (U)o n 06-07-2024 Interpretation and review of laboratory results Abnormal [facility] Preg Test, Ur Positive [facility] Urinalysis macro (dipstick) panel (U)on 06-07-2024 Bilirubin, UA Negative Negative - 4(70) +++ mg/dL [facility] Blood, UA Negative Negative - 50 Osvaldo/mcL [facility] Clarity, UA Clear [facility] Color, UA Yellow [facility] Glucose, UA Negative Negative - 1999(110) ++++ mg/dL [facility] Interpretation and review of laboratory results Abnormal [facility] Ketones, UA Negative Negative - 160(16) ++++ mg/dL [facility] Leukocytes, UA Trace Negative - 500+++ Edison/mcL [facility] Nitrite, UA Negative Negative - Positive [facility] pH, UA 7.5 5 - 9 [facility] Protein, UA Negative Negative - 1999(20) ++++ mg/dL [facility] Spec Grav, UA 1.020 1 - 1.03 [facility] Urobilinogen, UA 0.2 0.2 - 12 mg/dL [facility] Coding Summaryon 06-05-2024 Coding Summary HTMLBase 64 AdbottsdVAe0kZz+PGhlYWQ +DP4VJIGzK46ghARuaW2eF1 NMTElOSywgQVBQTElOSyIgb lBrQW4xuMPkBGTe IC8+QA2lCZUoTrrojJDvj9P 1zRG1U92kpw8tMLzpvEF6GL JeMkFdkmmrb1olgGp9CZxsO mluOyBt FKDgrG47JSL7tN59Zv30tRA jfELfz1kubWn5ApJwZZKnJU G8pUawMVtiw6FoGTKiW31an PTwj0K9 WXQooSnyqVQiDrAnoSQ9fQ9 wMKcyzbxkh7kqciwgNty0ra 02xDBed7Q1hPI7G4BqbsQ3E GJvbGQg EtxkrYZAqB1tkjnbv5zgmlt wWiVzHGAeQVe8PXx3BYLfoV qhPcOyTQ00BLI9WVBilbUoA 2FsLWFs cRdoXuR8h7K9Cp0XB1UEXai sQ9BYNUXHBQfkbHS+PC90cj 08D2KvRsmwAng1IWLnAWT7f UP5hE0n TLUvNQmti8H0nRH4Y3GslaE knm9gm2icZAPeVQanQ47jdK Qgu4R4MRBogOH4SRQtoHxwK iBzaG93 Oyc+LOMqzUvuq4GbOovkb7v ws7xinOf3TyioCEKqmrQevE coRFV2p7SdPf9rKSDnbWE8a HE1zA4l FuElDsY2TPbpP336AvGybZJ kFseaF93cY4HiyVE+PHRyPj l3REImlVxaWB1hC4JhOOHmc mctbGVm lRihEJ7dMFJvfwxyOWBpvN0 fUYCzG7u0EkUyXwA5JAmaF2 EdHWNgtbraMg21eV2aMyDeA lX0QItq Q2SiksY5HQHxbIGmMZutQPM 3E44hh6Y3OJKtXIHuVBB5lC O3zQ4avOatpuwdoMDlcKczq mVydGlj MEtwUDufO895HHZhoSrcEkS vZGluZyBEYXRlOiAgMTAvMD EvMjAyNDwvdGQ+SIEiIIY7p WxlPSAn jFBkLXfjIm1gbQndyGctJW6 lDNScghekAJUbvO2pUNBaxK GeeTeyNW0bLDNaixhxr022Z iAxMHB0 QLGorFTxD7LiwO3jGmJzNFP yDUHjV5TluJGcTAorI788LQ iuAeG1DFIljlOgZ6TuHLIsc WduOiB0 z8I1Xi9Sq3PwslwbW8JjaED cJbVhHdzgFKr0Q9DcFmhxxQ I+YX28RSYoGF42MFg2RCZ8d WxlPSdi IHRtH9MrlF0iXkNyOWRlBMN kOyc+PHRhYmxlIHdpZHRoPS nsNDWhTlIkmJovQZ3tPt3wY GVyLWNv fLadeMGpHrPdb6wqYFSzCOz tGP9pcWnnH4XysWJ5QFScy9 k0Zg09O32gY0YqbUO+PGNvb UI1uLE6 tC8aIcFxRwB9EDccL631VwK vmLOyXksyi5gke9xehXc2Bq R7YXYtjgYcoSxpLQX2r4SwZ x68T36l IHdpZHRoPSIxNSUiIHZhbGl coh0cxX9xYo4+CFWjzNQ6qS W2xK1vWyJzBwX3PJqoU498S nRvcCIv Oquxa1cfs8wsvBe7IyMoNEW vneGiyLkcGXP2a7RqKn59H3 WedGxaf6AhLwl4bs30zLUez 3J1lWY5 I0RvBWIhkoroxYOosSmbOP5 cAQNamyuoJNBsrP3nTMBvM7 b2AiPkQzD8AJcwJ8PvjfW8J GJvbGQg GQCfcGDZdE3kaegnh7tlnpu gGbLyTQRqUVd1PXr8THWakC xqUeCvAQE3OkC4XUK2gJCdx A1mxPjt gyfmkD9zQfb+XBU6uIEtcHS ZDH7sTcmpfXE+ZYVhZXF6jK gkRFmdJEFqrM8kRSSaW6m5T iAwLjA1 DVfaQ8YvtaK9ONBpzMRjQID asGLRyF8ajylvj5sqnratIs PzYLCvERm0IOm9RQEzgZnwT iBsZWZ0 LnB1MUG5tIMvyZ5oqLnidjq cvQ0iOyh+ZxveiZqxKTE9NF u8B6SmWop0SNLpuKxnTU1ea GFkZGlu Pv6pyIesrHlsLK5zTYKqckl io319WhVut5zwNIFmvKQyHL vkTWY2K46dn2S5RGLbOUTbN NW8vMN8 mG4yuToastnrhQCttEhttmC gkOmmGGhbNTyeS612MQLekG xjCjAlUNr7Q0GlUdy1UUOdy KfoRW5i vZYqZBbrDr0omHdthRsbFK7 iMWThzutcw606JbYhz7udMG GyxPLhGHvvEHG3M15uj3R2W CMwMDAw NJI7ySY9fP5afLoopliivNL mdDsgdmVydGljYWwtYWxpZ2 31JSCosRiyDvOzhIs6I4QhA ht1GUNo qVjjHG5bvCKlEYnkIa2wnNa wjIghPL4bNGTummisw775Bt Drx8okYFHooOIuNRhcWAF5W 20pk5J8 HYZxMKPiTTN0rBU9gF8irHi nbjogbGVmdDsgdmVydGljYW ipFAcgC001WIGblDnzObLgr GllbnQg UYocFNj4W9MmOzsydJK+PC9 0MIYdDE13eVPkmPAbp9gxxR j0QsOaOWThTDI6jJuwKPobz 3JkZXIt V01gbOJdp9N3LGUnxTaidTS gJpEouDE6gU6pATvmrqrsr5 tlovatBcixg5axsn04rM49M 29sIHdp ZHRoPSIzMCUiIHZhbGlnbj0 ikH9wHl2+VTWlpMW3rTN2dE 6vBQUmYpQ5DJaeA491AeOyf CIvPjxj m1obr2vrrFl3BoU1ZKSiloO piZssSNJ3q7LuWy22Q16xKP dpZHRoPSIyMCUiIHZhbGlnb r4wgY6p Ii8+UBKoeVH6hIW0hV3jDrQ aLiD8HStiQ279IvJtnKTpFu hsH99yV4JbvIH+GSHjCds6N CBzdHls KI7xvLCyKNseUs0qJUD6ThY gBdLhZGzcN0HrSXGuygphbh lcnIB5QWQqQRSqzO29An5qg DogMTBw bSXMlR3qkvmks7vofqbeQyO uKXCfVVs7PZg5HLLkzTwwUw RwXJQ8MhW0KYE2oBYwyH2tc Glnbjog mE9wR8PvJDQnynobHs72bF8 zYvXnUzJ3KAjsHfu+Q1JBV0 ZPUkQsIEJSRUFOTkUgTUlDS EVMTEU8 N0IwMgo1SZCmoPqdOO9cwJV uKUpvCt7trGyguGosGE5mRU YxtuzqZSVaeR1kRJWazKZck IkbUS1u LDAgrkouy938JyKtTXW9FSB zsYZgZ2GjqA2uWaGfVMNyWE RwD6FryNZmFNygB261LIzcK rT3IMGe lsAqM5HiOIJbaEvdZnX6x0G 7Tj1wEt7lDH9yWOo8JL37NV 18tPBhj4S1sNI3G1YdIPJsm mctcmln nQC3KIKjKZWhoZ51xVQoPPj fVx5tx6H8j195LWIfPZUysG 18Jm9jxVsjGCHusCYIkD1xb agrw4er djggEjWeTKViDKk7ARy5EBU plWrzCpIhTFG1KxN9WNT5gF MzgU8beJfpyxcahI4iVkx+M jYgWWVh mwA9B0GkXze4TSMffBmdMX8 syVDcCKwqWr0axPbanGqwQY 8hGQMwxblbGXGkdE4lYUTge HRvbTog EM5pMGUkvpczp182CqZeJVZ 4PBCmnHZiT4XhsZ5vFdVcTD OwQVYvD9IxkOVzMMkaU052M GxlZnQ7 SPZtnvVfN3ZbKMPjrTckTtV 6n7M7Ss3GCR6RRCQ5T4FiOm p6JQLxnZjzQY7mnAJlJXlgG c0tcUgu lOtdNB9eBEAaqidyWFTcaR2 uQYDtaFJciZrlQN3hRYGdss vbn205PjJwUAL5GKMcrCYiH 4FqgN0k NwXgWLQqACIhU5YzkCUzBXe yO750JGdeRwU1BGTxxvDcX8 YyINWzuWrrMqX4o6L5Zp8FL DwvdGQ+ BR46uf95I7OcKmyeLeg1ZFB yWHW2kKH0lU5nRWFoCUhqb0 G9eWQ9H8IyrmFvhp9mv8daU XBzZTog T73okJZor1G2VRNofLL4ODV jzKcvCcXfhL50Lbh+PGNvbG jnb4TjKqgpj1krw8rtcVx8J jMwJSIg nfXprJdhQHT7i9FeAj93W66 sIHdpZHRoPSIzMCUiIHZhbG nzux1krL7uGo5+HKGmnKW5h KA3oG1w EwHbYaO5MBwaK528KiPkwFX pDndom6xbh2mlsLl1YoIoVU PqpfPetVpkZED2c2OjMd33J 2NvbGdy j6CvVtl5yj29cPFdi0J8oQK 3Y5QeXUAeqmmvqUBywZvlJQ 4pNDJwvkrpNDVpgD7sRMBrL 2k4CiMr OoH6JTwyT6RpfoZ3MPGbbDK xFBNbfKAKrT7lgnayj0awbi evCeYiQJUgHLx4HZr9HQSte WduOiBs BJQ6HwH9ECC7xANykX4jrDt etjpyyC5eMif+IMd7v3rojM UsIU6wnPA4UE93BP95oSSor 3C5cBK8 I6DhBIJirzboqfkzoHE2DOT zYEVxkQ71Iq1guDmmAj5oGW TxGPK2TZYhzWQuW1FjtJ6fK iAjMDAw ZWEsU8YvhMBzMJilJ721GCg mTpW3IBHqokEeB7PoOUHpmC xePuX1j3P6Hp7ZYL22LH01S I52qUIs j1L7nTE4Z3GkYLNjoyczhhr pbRC2PJKqJONbxC95Cp9rwZ uuWt9gJHObQQI4DHIdtEWkC 8RyuL6d RmGwAUSdGCEqX0PspOZxYZd bV800TQyiKmQ8QHYikzTdT3 ZjJKGwxUefUkX7v8S7Fq3LB e83HS22 QP68vPWur2X8rDH5B6ZgAJM wejvoatzvmBX9CVFbHFKxbM 51Om7waYyzDp8wYZOhMMM4T FRpbWVz A5GbdD3rAdDbQADcWSExX1B uqSXnYJqjH619XOxtKvY8ZO DgtqXvQ0DpZNJoyTwfFzL9t 2F8Ew3X YRnefky9U8VnImjroQL+PC9 4BTMpAF06rOAhrXYst9spjF a0ZlWfYRNtVXS8rCmpHBijz 3JkZXIt Y29 (more content not included)... Normal [facility] Office/Clinic Noteon 06-01- 024 Office/Clinic Note Patient: SHERLY ASTUDILLO Age: [...] 113.040 kg Body Mass Index 39.11 kg/m2 [place] Body Weight Calculated 61.437 kg BSA Measured 2.31 m2 General: Alert and oriented, No acute distress. Musculoskeletal: Positive point tenderness over the left gluteal region as compared to the right. Positive straight leg raise. Positive piriformis muscle sign with external rotation of the hip with adduction towards the opposite shoulder.. Impression and Plan Diagnosis Sciatica of left side ([id number] M54.32). Plan: Discussed with patient stretches she can do to help with her sciatica. They were demonstrated in the office. Will hold off on any steroids.. Orders Orders Evaluation and Management: [id number] Office visit - established pt, Level 3 (Order): 06/01/2024 13:28 EDT, Qty: 1, Sciatica of left side. [Electronically Signed on: 06/01/2024 13:56 EDT] Radha Gomez MD [Verified on: 06/01/2024 13:56 EDT] Radha Gomez MD Normal [facility] .Auto Diff 1on 05-28-2024 Auto [place] % 5 % Normal 09-16 [facility] Comment on above: Performed By: #### 1 [id number], 9652228, 9461037, [id number] #### [facility] (DEFAULT) [address] [place] [address]72 Baso Abs# 0.1 x10 Normal 0.0-0.2 [facility] Comment on above: Performed By: #### 1 [id number], 6020065, 8608874, [id number] #### [facility] (DEFAULT) [address] [place] [address] 19184 Basophils/100 WBC (Bld) 0.6 % Normal 0.2-2.0 [facility] Comment on above: Performed By: #### 1 4421544, 5353635, 5380337, [id number] #### [facility] (DEFAULT) [address] [place] [address] 27912 Eos Abs# 0.3 x10 Normal 0.0-0.4 [facility] Comment on above: Performed By: #### 1 [id number], 5805012, 5460832, [id number] #### [facility] (DEFAULT) [address] [place] [address] 35943 Eosinophils/100 WBC (Bld) 2.5 % Normal 0.9-4.0 [facility] Comment on above: Performed By: #### 1 1295237, 8710965, 6849464, [id number] #### [facility] (DEFAULT) [address] [place] [address] 79909 Lymph Abs# 3.6 x10 High 1.3-2.9 [facility] Comment on above: Performed By: #### 1 7066541, 0938801, 5305793, [id number] #### [facility] (DEFAULT) [address] [place] [address] 68126 Lymphocytes/100 WBC (Bld) 27 % Normal 14-48 [facility] Comment on above: Performed By: #### 1 0821773, 4233964, 0734662, [id number] #### [facility] (DEFAULT) [address] [place] [address]128 [place] Abs# 0.7 x10 Normal 0.0-0.8 [facility] Comment on above: Performed By: #### 1 5372478, 8513671, 8722953, [id number] #### [facility] (DEFAULT) [address] [place] [address] Neut Abs# 8.4 x10 Normal 1.5-9.2 [facility] Comment on above: Performed By: #### 1 [id number], 6684066, 5458077, [id number] #### [facility] (DEFAULT) [address] [place] [address] Neutrophils/100 WBC (Bld) 64 % Normal 44-88 [facility] Comment on above: Performed By: #### 1 [id number], 2857553, 6640364, [id number] #### [facility] (DEFAULT) [address] [place] [address] CBC w/ Auto Diffon 4 Man Diff? Auto Invalid Interpretation Code [facility] Comment on above: Performed By: #### 1 [id number], 8061298, 0637977, [id number] #### [facility] (DEFAULT) [address] [place] [address] Erythrocyte distribution width (RBC) [Ratio] 13.6 % Normal 11.5-15.0 [facility] Comment on above: Performed By: #### 1 9817455, 4214957, 4903812, [id number] #### [facility] (DEFAULT) [address] [place] [address] Hematocrit (Bld) [Volume fraction] 42.0 % High 33.7-40.4 [facility] Comment on above: Performed By: #### 1 4456785, 3526672, 1486000, [id number] #### [facility] (DEFAULT) [address] [place] [address] Hemoglobin (Bld) [Mass/Vol] 13.8 g/dL Normal 11.3-15.9 [facility] Comment on above: Performed By: #### 1 5630774, 4493817, 9175378, [id number] #### [facility] (DEFAULT) [address] [place] [address] MCH (RBC) [Entitic mass] 28 pg Normal 24-34 [facility] Comment on above: Performed By: #### 1 1581271, 7467159, 0028108, [id number] #### [facility] (DEFAULT) [address] [place] [address]52 MCHC (RBC) [Mass/Vol] 33 g/dL Normal 26-37 [facility] Comment on above: Performed By: #### 1 5173301, 4062895, 9838338, [id number] #### [facility] (DEFAULT) [address] [place] [address] 88133 MCV (RBC) [Entitic vol] 86 fL Normal 81-100 [facility] Comment on above: Performed By: #### 1 3503048, 0965066, 9963800, [id number] #### [facility] (DEFAULT) [address] [place] [address] 86076 Platelet 352 x10 Normal 138-427 [facility] Comment on above: Performed By: #### 1 2350829, 6951510, 6922557, [id number] #### [facility] (DEFAULT) [address] [place] [address] 17688 Platelet mean volume (Bld) [Entitic vol] 7.8 fL Normal 6.3-10.2 [facility] Comment on above: Performed By: #### 1 8640129, 4587597, 4069498, [id number] #### [facility] (DEFAULT) [address] [place] [address] 39289 RBC 4.90 x10 Normal 3.70-5.30 [facility] Comment on above: Performed By: #### 1 7351768, 3150781, 9668292, [id number] #### [facility] (DEFAULT) [address] [place] [address] 04780 WBC 13.1 x10 High 3.5-10.5 [facility] Comment on above: Performed By: #### 1 5184913, 8075914, 7341718, [id number] #### [facility] (DEFAULT) [address] [place] [address] 37988 CMP Standardon 05-28-2024 eGFR Non AA >60 Invalid Interpretation Code [facility] Comment on above: Performed By: #### 1 7591626, 2035382, 6887518, [id number] ####[facility] (DEFAULT)[address] [place] [address] 21774 eGFR AA >60 Invalid Interpretation Code [facility] Comment on above: Performed By: #### 1 0159179, 6690591, 7091877, [id number] ####[facility] (DEFAULT)[address] [place] [address] 75133 Albumin [Mass/Vol] 4.4 g/dL Normal 3.5-5.0 [facility] Comment on above: Performed By: #### 1 4565338, 7362782, 4310879, [id number] ####[facility] (DEFAULT)[address] [place] [address] 24208 Albumin/Globulin [Mass ratio] 1.2 {ratio} Low 1.4-2.6 [facility] Comment on above: Performed By: #### 1 0589129, 4832702, 5456297, [id number] ####[facility] (DEFAULT)[address] [place] [address] 29486 Alk Phos 46 IU/L Normal 32-91 [facility] Comment on above: Performed By: #### 1 4605437, 6714914, 5453845, [id number] ####[facility] (DEFAULT)[address] [place] [address] 16202 ALT [Catalytic activity/Vol] 29.0 U/L Normal 14.0-54.0 [facility] Comment on above: Performed By: #### 1 8360446, 0205269, 6529246, [id number] ####[facility] (DEFAULT)[address] [place] [address] 06167 Anion gap [Moles/Vol] 11.4 mmol/L Normal 5.0-19.0 [facility] Comment on above: Performed By: #### 1 9366143, 5358879, 0358987, [id number] ####[facility] (DEFAULT)[address] [place] [address] 07549 AST [Catalytic activity/Vol] 30 U/L Normal 15-41 [facility] Comment on above: Performed By: #### 1 8364979, 8388931, 2805859, [id number] ####[facility] (DEFAULT)[address] [place] [address] 16157 Bili Total 0.4 mg/dL Normal 0.3-1.2 [facility] Comment on above: Performed By: #### 1 8695869, 5461066, 7656431, [id number] ####[facility] (DEFAULT)[address] [place] [address] 22603 Calcium [Mass/Vol] 8.9 mg/dL Normal 8.9-10.3 [facility] Comment on above: Performed By: #### 1 6684276, 2646421, 0610434, [id number] ####[facility] (DEFAULT)[address] [place] [address] 05064 Chloride [Moles/Vol] 104 mmol/L Normal 101-111 [facility] Comment on above: Performed By: #### 1 1887952, 1565506, 2363885, [id number] ####[facility] (DEFAULT)[address] [place] [address] CO2 [Moles/Vol] 20 mmol/L Low 21-32 [facility] Comment on above: Performed By: #### 1 4766797, 7017526, 8493886, [id number] ####[facility] (DEFAULT)[address] [place] [address] 03909 Creatinine [Mass/Vol] 0.66 mg/dL Normal 0.60-1.30 [facility] Comment on above: Performed By: #### 1 0699619, 4427503, 7136222, [id number] ####[facility] (DEFAULT)[address] [place] [address] 89413 Globulin (S) [Mass/Vol] 3.5 g/dL Normal 1.5-4.3 [facility] Comment on above: Performed By: #### 1 0290682, 2888607, 4178708, [id number] ####[facility] (DEFAULT)[address] [place] [address] 42568 Glucose [Mass/Vol] 100.0 mg/dL Normal 74.0-118.0 [facility] Comment on above: Performed By: #### 1 2142619, 9688590, 3400988, [id number] ####[facility] (DEFAULT)[address] [place] [address] 03470 Osmolality 263 mOsm/L Invalid Interpretation Code [facility] Comment on above: Performed By: #### 1 2183855, 6575207, 0450996, [id number] ####[facility] (DEFAULT)[address] [place] [address] 65311 Potassium [Moles/Vol] 3.4 mmol/L Low 3.6-5.1 [facility] Comment on above: Performed By: #### 1 0230107, 2177329, 4476284, [id number] ####[facility] (DEFAULT)[address] [place] [address] 54066 Protein [Mass/Vol] 7.9 g/dL Normal 6.5-8.1 [facility] Comment on above: Performed By: #### 1 3141663, 9666497, 8526865, [id number] ####[facility] (DEFAULT)[address] [place] [address] 72174 Sodium [Moles/Vol] 132.0 mmol/L Low 136.0-144.0 [facility] Comment on above: Performed By: #### 1 4585556, 6146638, 9595875, [id number] ####[facility] (DEFAULT)[address] [place] [address] 38027 Urea nitrogen [Mass/Vol] 9 mg/dL Normal 8-26 [facility] Comment on above: Performed By: #### 1 5688819, 8524996, 6785313, [id number] ####[facility] (DEFAULT)[address] [place] [address] Urea nitrogen/Creatinine [Mass ratio] 13.6 mg/mg Normal 4.6-16.2 [facility] Comment on above: Performed By: #### 1 [id number], [id number] ####[facility] (DEFAULT)[address] [place] [address] ED Clinical Summaryon 2023 ED Clinical Summary [facility] - Emergency Department [address] [place] [address] ED Clinical Summary PERSON INFORMATION Name: SHERLY ASTUDILLO Age: 24 Years Sex: FEMALE : 2000 MRN: Acct#: Visit Reason: Back pain; Abdominal pain - ; ABD PAIN LT SIDE, LT LEG NUMB Arrival: 05/28/2024 14:14:57 Discharge: 05/28/2024 17:55:00 LOS: 000 03:41 Check In: 05/28/2024 14:14:57 Checkout:05/28/2024 17:55:00 Address: [address] [place] [id number] PCP: Radha Gomez MD PROVIDER INFORMATION Provider Role Assigned Unassigned Evonne CheungC ED PA 05/28/2024 14:19:07 Daisy Freire ACUPUNCTURIST Nurse 05/28/2024 14:26:14 VITALS INFORMATION Vital Sign [...] Home PATIENT EDUCATION INFORMATION Instructions: Muscle Strain, Wydq-[id number]; Sciatica, Mrpv-ff-Cnqi; Back Exercises, Rfkl-fo-Usuo Follow-Up: With: Address: When: Radha Gomez MD [address] [place] [address] Within 3 to 5 days DIAGNOSIS: 1:6 weeks gestation of ; 2:Low back pain with left-sided sciatica; 3:Pain in the side Patient Understands: Yes - Patient/family/caregive r verbalizes understanding of instructions given Comment: Normal [facility] ED Clinical Summary [facility] ? Urgent Care [address] [place] [id number] Clinical Summary PERSON INFORMATION Name: SHERLY ASTUDILLO Age: 24 Years Sex: FEMALE : 2000 MRN: Acct#: Visit Reason: UC - Abdominal Pain; LT SIDE PAIN, LEG PAIN Arrival: 05/28/2024 14:07:02 Discharge: 05/28/2024 14:10:00 LOS: 000 00:03 Check In: 05/28/2024 14:07:02 Checkout: 05/28/2024 14:10:00 Address: [address] [facility] [address] PCP: Radha Gomez MD PROVIDER INFORMATION Provider [...] left flank pain; Currently Patient Understands: Comment: [facility] ED Note-Nursingon 05-28-2024 ED Note-Nursing Physical Education Aide at bedside wh syeda US was performed. pt tolerated well [facility] ED Note-Nursing Pt ambulatory back t o [...] Pt is A/Ox4 call light within reach [facility] ED Patient Summaryon 024 ED Patient Summary [facility] - Emergency Department [address] [place] [address] PATIENT DISCHARGE INSTRUCTIONS Patient Information Name: SHERLY ASTUDILLO Age: 24 Years Date of : 2000 Reason For Visit: Back pain; Abdominal pain - ; ABD PAIN LT SIDE, LT LEG NUMB Arrival Time: 05/28/2024 14:14:57 Primary Care Physician: Radha Gomez MD Attending Physician: Pam Gao MD Comment: Visit Diagnosis: Diagnoses This Visit 6 weeks gestation of (Z3A.01) Abdominal pain - ([id number]) Back pain ([id number]) Low back pain with left-sided sciatica (M54.42) Pain in the side (R10.9) The Pharmacy at [facility] is open Tuesday through Tuesday from [...] alcohol and/or drug addiction problems; contact the [facility] 28/03 Crisis Hotline -Text 3EAVL ot 167528. If you received any narcotics, sedation, or [...] documents With: Address: When: Radha Gomez MD [address] [place] [address] Within 3 to 5 days Medication Information: The exam and treatment you received today in the [facility] Emergency Department were for an urgent problem and are not intended as complete care. It is important for you to follow up with a doctor, nurse practitioner, or physician?s floor covering printer assistant for ongoing care. If your symptoms [...] so we can reach you if necessary. [facility] Emergency Department has provided you with a complete list of medications post discharge. Please inform your chain builder loom control/provider of your visit and for further instruction [...] can happen (more content not included)... Normal [facility] ED Patient Summary [facility] ? Urgent Care [address] [place] [address] PATIENT DISCHARGE INSTRUCTIONS Patient Information Name: SHERLY ASTUDILLO Age: 24 Years Date of : 2000 [facility]: [id number] Reason For Visit: UC - Abdominal Pain; LT SIDE PAIN, LEG PAIN Arrival Time: 05/28/2024 14:07:02 Primary Care Physician: Radha Gomez MD Attending Physician: Spenser Fang Comment: Patient Education Medication Information: The exam and treatment you received today in the [facility] Emergency Department were for an urgent problem and are not intended as complete care. It is important for you to follow up with a doctor, nurse practitioner, or physician?s floor covering printer assistant for ongoing care. If your symptoms [...] so we can reach you if necessary. [facility] Emergency Department has provided you with a complete list of medications post discharge. Please inform your chain builder loom control/provider of your visit and for further instruction [...] (R10.9) Currently (Z34.90) UC - Abdominal Pain ([id number]) If you received any narcotics, sedation, or [...] Disease Control and Prevention May 2014 Normal [facility] Lactic Acidon 05-28-2024 Lactic Acid 9.1 mg/dL Normal 4.5-19.8 [facility] Comment on above: Performed By: #### 3 [id number] #### [facility] (DEFAULT) [address] [place] [address] UA [id number] 05-28-2024 UA Bacteria Trace [facility] Comment on above: Order Comment: Urina lysis Microscopic order added on by [employer] system. Performed By: #### 5 [id number], [id number] #### [facility] (DEFAULT) 36 [place] [address] UA RBC None Seen [facility] Comment on above: Order Comment: Urina lysis Microscopic order added on by Discern Expert Rules system. Performed By: #### 5 [id number], [id number] #### [facility] (DEFAULT) [address] [place] [address] UA Squam Epi Moderate [facility] Comment on above: Order Comment: Urina lysis Microscopic order added on by cooala - your brands Expert Rules system. Performed By: #### 5 [id number], [id number] #### [facility] (DEFAULT) [address] [place] [address] UA WBC 0-2 [facility] Comment on above: Order Comment: Urina lysis Microscopic order added on by [employer] Expert Rules system. Performed By: #### 5 [id number], [id number] #### [facility] (DEFAULT) [address] [place] [address] UA w Culture if Ind Standard on 05-28-2024 Breakpoint UA [facility] Comment on above: Performed By: #### 5 [id number], [id number] #### [facility] (DEFAULT) [address] [place] [address] Color (U) Straw [facility] Comment on above: Performed By: #### 5 [id number], [id number] #### [facility] (DEFAULT) [address] [place] [address] Culture? Not Indicated Invalid Interpretation Code [facility] Comment on above: Result Comment: Resu lt created by rule GL_MAGR_ADD_UA_CULT Result created by rule GL_MAGR_ADD_UA_CULT Performed By: #### 5 [id number] #### [facility] (DEFAULT) [address] [place] [address] Glucose (U) [Mass/Vol] Negative Normal [facility] Comment on above: Performed By: #### 5 [id number], [id number] #### [facility] (DEFAULT) [address] [place] [address] Ketones Ql (U) Negative Normal [facility] Comment on above: Performed By: #### 5 [id number], [id number] #### [facility] (DEFAULT) [address] [place] [address] Micro? Indicated Invalid Interpretation Code [facility] Comment on above: Result Comment: Resu lt created by rule GL_MAGR_ADD_UA_MICRO Performed By: #### 5 [id number], [id number] #### [facility] (DEFAULT) [address] [place] [address] UA Bilirubin Negative Normal [facility] Comment on above: Performed By: #### 5 [id number], [id number] #### [facility] (DEFAULT) [address] [place] [address] UA Blood Negative Normal NEGATIVE [facility] Comment on above: Performed By: #### 5 [id number], [id number] #### [facility] (DEFAULT) [address] [place] [address] UA Clarity SL CLOUDY Abnormal CLEAR [facility] Comment on above: Performed By: #### 5 [id number], [id number] #### [facility] (DEFAULT) [address] [place] [address] UA Leuk Est SMALL Abnormal NEGATIVE [facility] Comment on above: Performed By: #### 5 [id number], [id number] #### [facility] (DEFAULT) [address] [place] [address] UA Nitrite Negative Normal NEGATIVE [facility] Comment on above: Performed By: #### 5 [id number], [id number] #### [facility] (DEFAULT) [address] [place] [address] UA pH 6.0 Normal 5-8 [facility] Comment on above: Performed By: #### 5 [id number], [id number] #### [facility] (DEFAULT) [address] [place] [address] UA Protein Negative Normal NEGATIVE [facility] Comment on above: Performed By: #### 5 [id number], [id number] #### [facility] (DEFAULT) [address] [place] [address] UA Spec Grav 1.010 Normal 1.001-1.035 [facility] Comment on above: Performed By: #### 5 [id number], [id number] #### [facility] (DEFAULT) [address] [place] [address] UA Urobilinogen 0.2 mg/dL Normal 0.2-1.0 [facility] Comment on above: Performed By: #### 5 [id number], [id number] #### [facility] (DEFAULT) [address] [place] [address] Urine Source Clean Catch Normal [facility] Comment on above: Performed By: #### 5 [id number], [id number] #### [facility] (DEFAULT) [address] [place] [address] US 1st Trimesteron 05-28-2024 US 1st Trimester [...] Yeh MD 05/28/24 7:34 pm Technologist: PM [facility] US Transvaginalon 05-28-2024 US Transvaginal EXAM: US [...] Yeh MD 05/28/24 7:34 pm Technologist: PM [facility] Urgent Care Note- Provideron 05-28-2024 Urgent Care [...] History Medical history: Resolved Ankle fracture, left (79119574): Resolved. Ankle impingement syndrome ([id number]): Resolved.. Surgical history: Cholecystectomy ([id number]).. Family history: Anxiety Father Sister Diabetes mellitus [...] yesterday to quit smoking cigarettes - 08/24/2019 12:Mayte Lucas RN 09/30/2023 Electronic Cigarette Use: Use, within last 90 days Type: Nicotine infused 11/19/2023 Electronic Cigarette Use: Use, within last 90 days Type: Nicotine infused Use per Day: 1-25 Inhales/day . Problem list: Active Problems (3) Depression None Polycystic ovarian syndrome . Impression and Plan Diagnosis Abdominal pain, acute, left upper quadrant (GSE28-EZ R10.12, Discharge, Medical) Acute left flank pain (PKS75-DX R10.9, Discharge, Medical) Currently (OBR74-IQ Z34.90, Discharge, Medical) Plan Condition: Stable, Guarded. [...] on: 05/28/2024 14:16 EDT] Spenser Fang Normal [facility] hCG Quantitativeon hCG Quantitative 20246.0 mIU/mL High 0.0-0.6 [facility] Comment on above: Result Comment: Post -Menopausal Reference Range is: 0.1-11.6 mIU/mL Performed By: #### 1 [id number] ####[facility] (DEFAULT)[address] [place] [address] HCG ( test) Ql (U)o n 05-08-2024 Interpretation and review of laboratory results Abnormal [facility] Preg Test, Ur Positive [facility] Progress Noteson 04-24-2024 Mill [employer] Authentication Interface Message Text Attestation signed by [...] [facility] PATIENT VISIT CHIEF COMPLAINT: Toothache and [place] Teeth HISTORY OF PRESENT ILLNESS: 24-year-old female [...] canal DIAGNOSIS: Abnormal tooth eruption (Primary Diagnosis) [[id number]] Impacted third molar tooth [[id number]] Caries, Impacted wisdom teeth, and Retained dental root ASSESSMENT: #1 Caries #16 Caries #17 and #32, Partial bony Impaction with pericoronitis PLAN: Surgical extractions #'s 17, 32, Extractions #'s 1, 16, and with local anesthesia Pavan Lee DMD, MD Normal [facility] [employer] Authentication Interface Message Text Normal [employer] Coding Summaryon 03-28-2024 Coding Summary HTMLBase 64 WvzpnucvNWt0jBb+PGhlYWQ +OA4YQZEjK32ifRXzdY9hT8 NMTElOSywgQVBQTElOSyIgb wItIT2huWLuKKTw IC8+WD6uJJMhGawyoMJvn1U 1rZI1Q50etu2lEJowqVV2CC EiYcRcirzhi3khbPc0HZqvQ mluOyBt WPQjkK26ADS8lY84Pq02xFX veXVxg3jkpJv3VfJkABOjDL R4iZprUZgqh2LvXELrZ75ss JHsn9U2 PRBxfMkzqPEzFxGdoHB2hE6 zGGtkbtwqu9pgibnfKhb2rv 32bVKlz9H2tLL4Q3DihlC8E GJvbGQg XwdaeDLExN1thdsko3gvuio oLbPqZCBbNHj6ORh9RHIgiZ uaLpEoUK52UOY7APIxrjBuE 2FsLWFs qYnsYiQ6w3H4Jm5WV1UQCgk oJ9LSIKNMRJzgkSW+PC90cj 44Z9YaFbyrBkb2OIJwSMF7u KX1kN0d WABdVJwvu1Q0lAO8T2OucwT unx9rp6zdOLHuAHcgK18pqT Dci0G5DKOgvIS6UUIitRgjJ iBzaG93 Oyc+PXNjzCuia8ErRdwgu7x zk1hjhVd1AeknTSSscwVjhA sfLPL5x1DeTx0iYRMcyRN6i BC5gC5v JaAaHxH8NNifY333JdDwdIS sKpcfS51mC4PxgFG+PHRyPj b0FCSllYdcKJ9vA1UwSFIic mctbGVm sGpuJJ6sAMAntmglNFMpcF3 wSZNgV1i6RyJcYrB3ONnwG4 VoWESdmqxdGd91rT1rFvWzE yC5HXvn V6WaojG2ZCRafXNjRVimJDW 5E72yl3N6AVVbUDVjQRZ2jG P0sD1rfSbmigqqeYIcdGrum mVydGlj UKjuMEibX783UFUflBbfXeX vZGluZyBEYXRlOiAgMDcvMj QvMjAyNDwvdGQ+INDjHFQ3f WxlPSAn nJVoDDrnGr2osKeefUyjAA6 pRLWoyqujIIDgiH1aXRAroC AcsNxyGK8zCXPzmkdta707Q iAxMHB0 CJEbkXMkQ9KyuR2xUmFdOSZ uZPYnA5CinKBkELynQ284PR tbOqW4CQGaooChT7MkYGFno WduOiB0 w3Z4Iy0Rf6BrfabnT4HmdQF aAuCpTcluJRl6G6MjOddqzO I+UE57TOMdLK75IZv1GIG6g WxlPSdi MSGqV6ZlsC9tPaPkQOFfKIK kOyc+PHRhYmxlIHdpZHRoPS zvJPIaKfOvfIkyDW8sAs2lQ GVyLWNv dKrmvCInGzQmq3deERRoTXs sJR1aoKenE9AzjCB0VXOzz2 k4Hb17J09kK2TsrNA+PGNvb VY7nZX9 nN4uVtAuXpF7FDopR303NbU wrLRtDypad9xhq0afcXs9Am W1ATNfpcLrjJykNHF9g6OnG r18U10g IHdpZHRoPSIxNSUiIHZhbGl mom1vyL0oFn2+FPCykDZ0jA H9qZ4wLjSeKcW6WFmzV575B nRvcCIv Jnhcm2lvi3lslLa3ZgGrJKB xmvIkaZecKWR0l8JkLk99H8 RblSubk4ZaVst6fo34lEZrk 1Z6oSF2 I9WuCJHmumlgpMFvrCqkEF0 gSHCerqxuVVThpS5fPSKrG1 d1OhQaBfS3KDwlX0GnbxK5T GJvbGQg GKYtxGTXtQ0njgref1ogfrz mNtUnWVYeEIy6ZWu5IMMbhR qsXuAyNJK0QxG5IMX2eWXdh B3lgGtm nbnhuV0eTzy+VQK9tGWvcQI VWR4lXebqlER+FQFgJOR3oN bwXDkwTYLbdJ4eATTmY6b0Q iAwLjA1 SWgoA1PyimY1KWHtlSNtWDE kjKFRgT2ouqvwc6ydluaeYz AdENUlQAa2FPr5RHAmrXoaY iBsZWZ0 NbK5HLI9iCTgrG9mbUftrei qdH1wVxu+XjtamGhpWWZ1DE g8V1RuBfw7TIEduEioHR0oj GFkZGlu Xe6mxIhzlMlmNW2yHBBcmly pm749TsHif5lwDKDduKZlLY coQIS4P35bs7D4ZDHsOBLgH GJ2lPD5 sR5xnJgaqefyeBUsyIrdrqX tuUwoPQinLLllE826AWHgzA teZnStXYg5F2CdXiv2XTVlh DfiQK9i jVRnXLfoCm7doConvPssGC7 pQBDsluklm945UnRdk9itFJ YxuSKrBAgnUJV1K77ey3J7W CMwMDAw GBG2dJQ3iN4qzXvdlhqxzPX mdDsgdmVydGljYWwtYWxpZ2 28CYJptBrxBcWphVz9V4VsA sn6WODw bXwuYA8ldOAjIGfhEi6xiFt xxIqdZL5eSXQjxpzof402Oz Hkk9trESFvtJXiMVwxTGX1J 97zu5G6 CAMoAZRwQJR6bUJ8zT4jaNv nbjogbGVmdDsgdmVydGljYW vhMPajZ871BBFnvQvuEgXnx GllbnQg OLkqZKu4L1VgHhhqlUL+PC9 3ICJzBZ28xVVskLOyh0dqiZ d4BuFbSQNzHOJ4uChlMOyot 3JkZXIt V86lrYJlo2T4HDZiwMiavTF bIzSklCQ3hM0qEOqjhyerd9 verwxoJnqpx1xtju91kL99L 29sIHdp ZHRoPSIzMCUiIHZhbGlnbj0 koD4pFo5+NHWgeKN6xOI5hZ 9yJZVzDqI6ANrlE398NzUul CIvPjxj h9gxu3pzqGy2XsR8ZOGexcQ gaOauSOV3r6HcQj78A36yLU dpZHRoPSIyMCUiIHZhbGlnb x4kiM7r Ii8+GTCfrPZ8mNC6fX4dMrJ yToL7JIhvD549FmYqbERcPg kcA25rD6SqcVO+YOGaAxm6J CBzdHls YF2wwTJaTZrfBv2tQTA9VbS cTvPaSXqjZ4MrFANiahwfbc ubsQC9KMCnUROezL93Uy6dz DogMTBw jGUZaS5hqigza3kctknzCiY lOEUrHTp0MGs9KZFogArwSz VpDNA3MsH5FKX1nSGbxT4nu Glnbjog rU8eW0LrTGKdifrtWc27mF1 dFfXrHoR1EBrjNsa+Q1JBV0 ZPUkQsIEJSRUFOTkUgTUlDS EVMTEU8 C1QvBfw9JYZjgCscRH9mxCJ qTOwnIp9gbNvtwDcpFR5pWP AbsdfxCTJevO8cJGSgjHIeq YmiGI0m OVTilrvkf329MtAhNXL9WAQ etBIlI5CzvG3tZaAqUPJvYQ VuH3SoqWZsEYbkB907MMpdZ pN2NKJw onIlM9GqLBIqdKhmCdT2n1I 2Kz8uRo7zZG9mYKg1QT47TX 59cIBqt4W5yTJ6I2WjUCRob mctcmln zHP3SZJnOTXbsL10iPDfSOt tNg3gx2B8c806QJDxPYUetX 68Ok2klNdfOYOxuWEXzQ9yq nqmh2qw jxmuGtQrMHWwOWu8WQh6NKN ivZsnScHmZWJ0GcS9PRF8rK ZfwH2zeGqmckqhcW5yVql+M jYgWWVh rtX2T9AmOra1QBMlyInfDG0 ftCCmVNsvRq8fyUvimUbgQY 4zNYRutvexNVWukU7eZXTap HRvbTog LK2aVRXobgvvs430JdWfVZL 8TZOdbKAhJ3ZqtW8jLfCtGW ZwYMTvP0QtqYJuEAgzP004V GxlZnQ7 MTZiqbJwG0AxYXVjgShsJnN 2o6J1Qy3LGL2SXWV1L3JlDf t7ZILyoJjxMS9lsPPkKVweK q6sfOnd zJhhOT5gQKOipmdsALHrqX2 xLVHlpHGgdDeoDL1hXZSacq fnr823CiLhPGK7PFMgsNWhU 9MuoZ1b SrHfUEPxMDVdH9WqwLWeFTx sP927LNwgAtD7TYKiquDkW8 JgRQQmoFjdSqV7q2A3Du9JS DwvdGQ+ DA63sn10M0UkCkksIyr8GFY mCSY1xTL8jX5iFJLhUPcdy7 E6gML2Q5GgvaMhhm9xs5zrL XBzZTog L21thAWee2Y3BSInuWZ2TSK syWryZeFsiP77Hwr+PGNvbG pck5BoBhugw7cmr4kdxTp1U jMwJSIg hwEmzEelQKH8k4WoEg01J55 sIHdpZHRoPSIzMCUiIHZhbG juet4ygD4qLs7+CCXruQJ8x SP8bM6w QyCdEoP7CCgpI488TiTqdFH qSvhfd9ktp7mfxKc4KzFcSM LftcPedHotLNA6s6JmEg03Y 2NvbGdy r6SfQot6hr08eYMqt8X3wKL 9W0DvZEHurhkfjAUzkNanRF 2eTMPflwnuHHVaxE8rNVEfL 3e5DxCp StH9HMtwQ1FyvdW0HKLbwIQ xRRNiaYEUkR5yaseyd7tdie vwFaXbSLBjHBm5QUt9QEPsz WduOiBs UJG7OmZ3TWP7qJWzvK4iaCg htafcaK7lGus+JRn4e6aweU IuAS4owJM3TS53FL76uPYzz 8N6oOS8 P9PaYOKkipzvbgsqrPR2JPL nKAFhbI79Jc7vvNmlIb8qMN MtFIU4SGZtvDOxS3NqxX5fC iAjMDAw TMQvN5FwrLEkRBclG916NMd xUaI3MDLgfyNjE5KwWXOlzR dgJjU2e7R9Ju4VDK45KG54F J82wIAt w6P2bAP2Q3VzJUYkpdvaswb jxRJ2JUQlUTSraU65Zc9awE bwCi1aPSKcAMM8CHAboYJoX 1FcbV3k TxEhKYPlSRKnN4AvpOZjRIc tD277IHriGeJ9EJKtxoUyS6 FkZYJalQmsIdG0c2R7Ev9TL w36VU35 RL27iVTzm0W0zSO8B4HxWAZ gmktspkkahOK6UDRtZVTngB 12Jf9bzTapLr4aTRNqTUX4F FRpbWVz K9AscN4mNjDsKXAaNZDiH4F mdLTpRGigR338HPktBsG0JT KircOqM8KeANAynOjlVaE9s 5H4Gk2X SPouvli6G6PmExzuiCR+PC9 2LRNwYK71qFYacZSej1sgfS u2YjQaNKDeMXA8xYgnQSqnw 3JkZXIt Y29 (more content not included)... [facility] Progesterone LCon 03-15-2024 Progesterone LC 1.4 ng/mL Invalid Interpretation [facility] Comment on above: Result Comment: Foll icular phase 0.1 - 0.9 Luteal phase 1.8 - 23.9 Ovulation phase 0.1 - 12.0 First trimester 11.0 - 44.3 Second trimester 25.4 - 83.3 Third trimester 58.7 - 214.0 Postmenopausal 0.0 - 0.1 Performed At: [facility] [address] [place], [place] [id number] Sarah Beal PhD Ph:[phone] Performed By: #### 3 [id number] ####[facility] (DEFAULT)[address] [place] [address] Provider Orderson 03-14-2024 Provider Orders [id number] TGTIFF [facility] Coding Summaryon 02-20-2024 Coding Summary [employer]Base 64 NsvsoocmZNs8aEk+PGhlYWQ +SO0XEHZxO88kmFOftV5tI9 NMTElOSywgQVBQTElOSyIgb eTuIN7gyFAvKUJy IC8+XI8bJJHuHuqspUHfv5L 2oEA0T79fwx5jAQjjcWF6OW XhUmMetnotz0slxMq6MAmiP mluOyBt UXBdzT50KZN4gK22Pd32qIX ypOFdc9besLe3ZwWtXNEtZJ J7vCgdPDnus9MaQCEhR99bh WCnb4B4 TQWthVqsaHHfFgPgwLD2iC4 pTRnrvpral6zgicudLqq1tf 01iEPap1V8tRJ8W4BrgcV5X GJvbGQg SqsklMRNwX8jsvquh6zhiyq zNwPnKLNeEPv9OTw3OJEonF xxYmZaGP08RWJ9CPEwzhSwA 2FsLWFs jYstVmR9h0I2Vu6RB6USSur uS7LGGGCOWJdgpUN+PC90cj 54Z8TzPxkrYai1VJYiYLL2i MN2xN9w MGKaAFcxg4H9nBQ8Z8TcejK rnt9ac0avHMHzUAfgJ18zwG Phd8Y8WTBfrBQ7LZShfLuzH iBzaG93 Oyc+LJGrfNhcf0PgCtvxo9r bm3txtVe9BlfjZJRiflUdfV inRES6i1ClQc9qKGEtbTK7j UW5gB6r NqDyKfS9FUdlR080MgNqvPD cFoyvR69fP3XfiII+PHRyPj j8ZYLyzAhgYZ7lT9WuSHSan mctbGVm mFeiZR1mDFDmjdnmVHQjeP2 cLOXtI4z8UwWcKdW9QRjxC9 MuTTGfoxrzWy23aF6eZaVtY qM9KQqh D8OtyiU5SKLblAFfOQjiTXO 4Y17nx9I2LQMpKCDlPVJ2yZ E2oA4hhKligvfroTEzsNvlu mVydGlj EFxmHGmkX830LIKskKdaXkP vZGluZyBEYXRlOiAgMDYvMT cvMjAyNDwvdGQ+XMNrSPE8l WxlPSAn yFQbQJkdMg1qkKamoBrfXK9 iBJQzzsluANItjT1rCIPunD RbqIuxJL8bDYJoxqfnt725Z iAxMHB0 BHIfaCRtT4UbrX0pTpTjLJT wTEEfH5JctIRkSBupC685BY cnReO5FHWgxzVqF4LpTQWvj WduOiB0 h4B3Kd2Vz1UiteepS1FvuTB jWuEwJpbfRFe5N8YfUonuwJ I+UB28XAAcZB15LLt7TKR2t WxlPSdi LTEdI2TklH2rSvEvUQXtEOW kOyc+PHRhYmxlIHdpZHRoPS enHHWdCrAkbYemTB7tIy0yJ GVyLWNv bDetjKIuMlQgi6slDFIaNRa yWG0sxEzvN3YvoNR8NTOxq4 u7Vk49D86mJ7UivIN+PGNvb UB5jWL5 nT8hCxQpOkL8ELpbK256WgA deQBgGfiql4xmk9clbSg4Au H0WOHpqkNbqVxaVNA2h5FjM s68N71m IHdpZHRoPSIxNSUiIHZhbGl zkc7alS8iDd6+JVLnbJW8gF B8sW6xNdEhAyX8CZycM363Z nRvcCIv Omxwq0jxj2grxHc0SuImLZX kiyJdvAubTOK3m5EjNh99Z5 SbrZaju0GvHsy2wb78iXWlf 2E0rPK0 R4EtMLCxhdzzaGLdhQvsMJ4 nPXUtbajaXHUorV1nYHLsY3 t0SxXwHpU8DInlC9TtteL2C GJvbGQg BRZehCAYlA5ubtiru3dunvq aExRnNHZyPOk4EVa1QKGfhG bpOsKrCRI4ZfU2DZR2qDJvp B0hvJwp hyyhmN0kCmn+NKT5gPSntYZ BKU5pHisjeKG+ESFuYTP7fH siSSywLRIikH9gGBMoN0t3N iAwLjA1 DQduU4RqrgS8EMZzrTDvPPD sqQEToL6pcneez9inbwplLa YaVBHmXCn5AHp5CRUacCzmP iBsZWZ0 VuV4UBO6jGUwnB1edLjrtxw lyA4oQvg+EskxgBzcBJY3QS u1F9FwVot0HRAdcJfnOU2qz GFkZGlu Ii8btCnnhZbzSU5rZOTmafi ad146ZoRtz2zkZFAmaHXbMA jjWVG1P30fg2D2GRMcUDEeV AY9cPW7 zU3qwWcxwgxzqSJjiIcdzkE uhXquPDiyWLsjH781JXTdlS gwIcCcBSg6I4IgNqm2UWEjd GxiYJ9q tCKcDVjpVs7uhJkbvQqtSK1 nZORzacfer829StMhj3huLA TjqRZpGYaiZRQ7Q91jr6W9Q CMwMDAw BWH7sEK4sC7rxPvhvqsrqBB mdDsgdmVydGljYWwtYWxpZ2 78OKQmiVlbVrYrxYw6L4ZeT hu3LXVa wJjrBS4wpYDpIBymAt1gdEu lpZwoEM0oOGNkwgomn551Wn Mkb0adIKVyiZPwTYtuOUL3K 33vi4T8 DFTeFKZkRZY7eNQ5oX4wnBw nbjogbGVmdDsgdmVydGljYW ruPIasB581NYZhmIplBzWjd GllbnQg VHwsQKn7B2XiRmjmwAM+PC9 1OMRxTR97yMBnhFAnw3vbhV x0FjQeMBIuHNC5lLveTAjmi 3JkZXIt A88woVLsx2K8WZRauOmpqYL mIgWevJJ5yE2sOVxhwhile6 dabwjkVtzuy4odzp12zT50F 29sIHdp ZHRoPSIzMCUiIHZhbGlnbj0 khO2zEa9+GWDbbJJ1jET6uA 2jKUBbZiJ6UMujY738RlQoi CIvPjxj j9sff7lblKm9VeQ3KZDkkvB bfIdoLWX2z3SdNu98L08hCK dpZHRoPSIyMCUiIHZhbGlnb p0kvS5d Ii8+FMSftAI3yYH4yY0lWwM zFlC7BMxnY511PsAkgZHhSb ctF63dC1VclJO+ERRoEio3I CBzdHls RO5xdHKhRQqtQt8nXQC5EsG dYqDvYKdiY6PpXKOkitnews srmZV7AXCoPOLusQ81Ew8hd DogMTBw yFESfJ6jdartc3xraencDhA tMZZuMCc0CEc3ICFtvGqeBf XqRUC1ShB3GET1dFRsuO5wa Glnbjog iI7xD2QnPQMamdgyGd46qC2 tJvAgPrA7VHgcBkd+Q1JBV0 ZPUkQsIEJSRUFOTkUgTUlDS EVMTEU8 R7MbBti0OOHdwObsZT3ykBJ kHCcxYb5gxCvvyZjeJY2dBX DgkjslWSFrzA9cDXQcoGUwx OykIH0t LUOjfaxab082WvMoNZA2GJP lbQQzR4TbgD2jTvRyHWUfSM OtZ2ThkFLlBAqdG296WKqiZ fA2VKHn tqPgQ1MbZPIgpOgdBcL5k3E 3Lh7eRf7kNG1kXWn5HM04NH 76cJGzx9I2vQT4U3ScSHVzi mctcmln lWX9PXZcOKGreW32fVIdNOy oAe0ol5W9k592SADlHIXbtV 15Tu1cpUxpDNCyrLEZmB1ws cbjp7ba xigjKjUfTAYmQKs6NRq0UHZ epCehOrIfQFX6ZwN8VEI2oJ OkfB7zcBocdwsyzU3gTpy+M jUgWWVh drH5S4DzSag4ARUojOprZC3 ygCMpEBsdJt1nuOpnrGzeNS 4zTBCpsdqhSUBeyS5pPFDki HRvbTog GV1zHARzjcxms340FsSyTQA 5KJNrkNVeI8PcaJ5iEsBkYV TjQKQsX2UoeWJoTKciW133Y GxlZnQ7 BDDlodUpA6UdMLFdoQcaWtJ 6m3O6Qn3WYA8YZDD3N3QbMk n0LDCgtNudKP6svGOfLVwuN c4tsSot uYdaWI0uTVIikuywMGGlcX3 vWFXqvNPuoOxbGJ6eQSLefp xfm794ZlTiWWA4RVIdzHWkF 8ChxK2n WsBuIFVaSGAqQ4AvqUJjKBy tQ494PZvyZlV9AYQmnkWnK4 GmREGbfOxmRgP6t7B0Zm2WP DwvdGQ+ RD92gl12F7QmRcquXju3HWC zVBT5kOC9cH7eWUPfCGaut2 S4vCN4U3LqznUnee0oo2boY XBzZTog A09qyYUyq0A4NBEmxFE9KTS voQafYqYawU95Udu+PGNvbG dth5UpXctic1rjb7gfeVu7T jMwJSIg rgRccZijTMK0d7LqDw56D90 sIHdpZHRoPSIzMCUiIHZhbG ujqe8bsI5bDk7+OEWapWI7f AY9rT0p WvMzQrO1YNaoC618LzGifYG wCbtub0oqg0dnqSw2SnHwXM QfhfYiyUadBBG2o5SlLo91M 2NvbGdy d1BvWru0po64jITul7V7pBJ 8F4YiBRXexhpywSRlzXmdWR 8zFRIcsyzjWKZgoA2nVFXhK 7b1KsAz YeL6WQlcA1LhazL1WFDtmNO oBHOedMBZuB5nnsylc4rdly yxCkPkZNCvPTt6QBd2DEIgu WduOiBs CBQ1KxZ6ZAB7sVKjsB3qtIm xqonrwT6rTis+AGo5o6vbaF XxPM5ihVP4KW29DH72zYFhi 2B4lYK8 N3OaYWLwqdpiptiwjJU1ADT vYUZldB75Qx7ymRkxRq2tBQ RfXQR8BGEgkAYwT9GloK2vT iAjMDAw JWQxR4PlhWWoHFgsH369HBa kQmO6FMDdriWmD7AnIWGrjQ ogAsI5a0Z2Fk8LHL53KN93Q Z33dYUx n3S2eEA3H6VgFIDqohijtun tvXQ6TRCqIOFzuD13Zy4whC edWr0zECEoYRP6WFBsvDMiI 5XtxR8s NbQnLYPxFUHyH8SokUCxYGq oH803UNzxSsL8TROtmiDwI1 GhIFAbaBjnNzX9z0R8Lm7QO a70JT30 FZ18gMTgl6Q2cEH2A5EhOOZ pijcyzoujkZP4RBLvIGJdtC 00Oe6icBecDo8gBXZiPKL7D FRpbWVz M7YzsT6tOoEhOWWtGWOxS6X foIWnMIvxH308AIckXxI8ML BsgjQbG3RxIZAcvYwtEfN8r 0Z4Vi7K TNpasxq9F4NfWzjpmCA+PC9 4LGYsJP80pLDqoEVmu7nhhR v8QwDkDPBpEFU8mUgqAVulb 3JkZXIt Y29 (more content not included)... [facility] Progesterone LCon 02-15-2024 Progesterone LC 18.8 ng/mL Invalid Interpretation Code [facility] Comment on above: Result Comment: Foll icular phase 0.1 - 0.9 Luteal phase 1.8 - 23.9 Ovulation phase 0.1 - 12.0 First trimester 11.0 - 44.3 Second trimester 25.4 - 83.3 Third trimester 58.7 - 214.0 Postmenopausal 0.0 - 0.1 Performed At: [facility] [id number] Sarah Beal PhD Ph:[phone] Performed By: #### [id number] #### [facility] (DEFAULT) [address] [place] [address] Provider Orderson 02-14-2024 Provider Orders [id number] TGTIFF [facility] Coding Summaryon 01-19-2024 [facility] ZqhhnllyPTf2iTn+PGhlYWQ +OC2MPXLtX25ivGLwqD4iY6 NMTElOSywgQVBQTElOSyIgb eWaVG6jlFAyPRCj IC8+UV2bNTVzTqwhzBGix7V 2aSF2V22ppv6rFKfpfXM5PE CyZyObqdmjp1fnfOe8ILfmH mluOyBt MOUwfK78YFZ0yR22Lg28jWI mmFFvo4ejvRp7VkGxBOBlZP D5mIyoWJbtk0YiUWQuZ91ef BYse1E9 ICYylTparXVvAaKozIC6iM0 wVPvmzcujr2zcjnycHqn7fh 95eENuj0J5zPK9M1CgfyE7R GJvbGQg JggsnXWVjP7mjqudk9wcvps bIsMcQSQyAGb0AEl5HOSbkC ckHzJvPI46XBH4KUEbtoQkF 2FsLWFs iXqpHkS7z7Z5Tv8OI3TTYvc pP4YFUDUCNPbdxMN+PC90cj 28A0NhPpfrNef0MFJwFRJ9h NB3zA3i BSFsECtvt9R2tUM5U0FhhqW emy3kw1jqRRXqSExmX15nmE Nzv6M8ZMOzoKE0XXRkhOihT iBzaG93 Oyc+ZCSxjVmui7PmGzabo1x ly5rmxXn9FcjhUXPojeYavZ voXKA6x1UvAk5wPIUqgJW9c XE7iH2g CmYdZkR6AVldA784LeWqtXA aHarhS17qA4JemJW+PHRyPj t2QUZdvPjzOB9yF9FnDICag mctbGVm rOdtJQ0rGBXwiztsDWEbgO8 aZLSrH2b5ZiKgBmC1BVvmH1 KmYCXjpoahYp21lV8kVxNkX gE9YGxw N9XotqN3OOFoyMHgKHjrHCD 2Z36xq7M0JXTlOGZoEJT9mJ M4xD8oeTmjardmuCOgfNakt mVydGlj ZDinRCdzF326RBNpyTojUdY vZGluZyBEYXRlOiAgMDUvMT YvMjAyNDwvdGQ+OOTsCUU0n WxlPSAn zFRsQMnrOr5paQamoCpxQJ5 uGRHlphrfMSYxyH8rXNVyoG TvdQlcGC3jOBJiuzbed945F iAxMHB0 YNUunKTlV8QoqX1kDkWpFVA rBKMqG2VvlJWtTGnlI846OD gzQsW5CQOjakZiY5QnZFKbn WduOiB0 h6P2Sy4Lt7ZydfirM8WrtSS mZxImEjbgZWd7B4YdZhhmoW I+FC91WDYbFY70KHi6IWY4g WxlPSdi SZXiG7KhaW2qCvZxVHWyWSE kOyc+PHRhYmxlIHdpZHRoPS wxEKOxGaTbuPfdAZ3wDv5zG GVyLWNv vJfvtDTjIrFmk7yfGPMeXMy vRZ4bdHmpT1JxlHG9AQMhl1 b3Qj25I93dL5IrbLS+PGNvb UE0pCZ4 cC0iWcPqTbU2VHurD101OhX hwMHiLvbbm0wgp5ilbBi2Xi E2YCJgmsSuvKxfDOE1l2QqS p51U90d IHdpZHRoPSIxNSUiIHZhbGl nhj5dkG4lDz5+BAFtyTE8vE L0yU1sXmTlMyE3HWccG784K nRvcCIv Eriuh5ytw1vlcDv4BbBlBGY dsgYhkMciCWI9f4ZvDd87K0 ZqcCctb7ToVos3ki57cDWfi 9P0oMS0 L2QzQMNvfkavySCnxYvnGG5 uXHWsyxppVVYqnY1lQOBqL7 u0MzIeFrB3ZYszM0AkdyS4V GJvbGQg FZTqhQHOyL8mtbwdo3vkuln vEmRgQUIkRSz8VZu7XWAchF mgLoCqNDI0BsG0XCU6pUEwk S6htLpo qdksnP8oYvr+INF7cJGsdPE YCB9sLsqgcMI+YAHoOIF7kH zeBAevHHKbaE2fXMFbP4v6H iAwLjA1 UXesT7FmdbZ0PBDpiCWiXKA dvZGTaW1kczllc9pclxrgNo RwFUUaRHb2XYy1SYYliUnrL iBsZWZ0 TvW7JTC5dTQrjS7urFvldmc fcM0eNzy+HsjqzOizGAS0HY a0Z1XaCro5GWDlzWmaKX1tu GFkZGlu Ce6riVmyhUirTM9tJPPwwgy wf289UzTal9haEWCuvKHaHU ypDZV0U76xb5X8HTKhROYfD ZJ4rXZ0 nF7juWajwfqytUIdwLwlmqJ dqSouSBmaWHomV073UNLfcJ ekGiNwAIe2C6XrUga9LGTyj XbkDO5e hTPwTPolSx0gpWznySeqZC3 vPTExsqutj083HqGas6glKO KacLYeCCqmJAE8R87qf3H1G CMwMDAw NUF0dLB9aH9pfVkquuomxEM mdDsgdmVydGljYWwtYWxpZ2 15UQKllMryVwUmdWh6G5XaJ ka6QJSx lOwfGO0ybJQaYFnjUz2dhOv vsZjdRE7aOZOvznern823Dr Wzp9mqGUYreMTrBRubTCH8J 83pj4B7 VRSkVZXiYMY2yDL0qI0ikTv nbjogbGVmdDsgdmVydGljYW diHCwzM617AYEkuVawBaZey GllbnQg ONevFVn9N1HnTznfiYL+PC9 4ZUAtXF47xUDnuTMmg4ukfQ k2EhUhLLBlQGL7fOizBDhce 3JkZXIt B70cmFFdc7Q4JZEziLurrPJ xQjFqdZF7vY5hLTkcrwzfd6 utwqkyJpawn8ppog11sZ01N 29sIHdp ZHRoPSIzMCUiIHZhbGlnbj0 tyI1iOm4+EDIdlHI5lLR0sL 0kWJMmVjG4EIjaH955TiGjx CIvPjxj h5suj8unwUw1QtC2AELcvbU uwOxpZVI0g0IvVa99Y36kOA dpZHRoPSIyMCUiIHZhbGlnb w2ndZ6x Ii8+OFSiaPF0kTF7mG8aOuI xVbS4RTtmS310NtXcuQWkKi qgG92oE3UcsIL+ZSDbUgo2Z CBzdHls FL3yjIIuSTkwSr4qXCF0CdL wQeRmNYysV9RmEIByhnehrm pwpXB2KZBjDVXdfG01Bu5fn DogMTBw sTBJzA0bkpqvp3qdcqpaShD cRICzRVa7ZEn8BRGgkWouXq ZmLGP1TcD4JUC1eMZejJ7nl Glnbjog qS0nF8RyFTAeekzzLu11dS6 pMoRkOmM1AKtfAci+Q1JBV0 ZPUkQsIEJSRUFOTkUgTUlDS EVMTEU8 L6NxOrp2ABFxzTlrXS3hvTP yUQleCz9nkZhzeZgbQX3mSG YbakvpWFLpeC6aBNVmiPFxe IxmII9o BTRtrvlsu641IbYmSYI3IUM ktIWrG4SxkM9wTbYaWAPuJO LoI1LsyKInNLlqY468LXnyQ kA9VNNw lmHsF9OoZXSbiKyiBuY0n3L 6Bb4hBw3gBO3jMIh0MQ06CS 16dFOqe3Y1jKO4J2LjRWUip mctcmln mZS0MDMnYEPecK98kMUvQXr fNe3yq4O0k996XOOjFGIqcI 46Gh1otGlqPEEggLGZoF4zh lmnc4hl zizhAwFuIIZzSRp3DYe8OLE xwGedJuVlNRR9DhS5BUF2pL PquC9bzKffhzrflC0wWlx+M jUgWWVh atV2H6HaRdz1ZIYboRjrGE3 llXPzMMzcDu4mcKyfqLjmWA 5eYCYjphpdFLBtcL7wNOSaa HRvbTog NV5mNFZdteelt071CiOoVAC 3CTGgnICcV7YmlV2zUgXfDX MrXNBdT4YpaMWaNIzjW957D GxlZnQ7 TPFiipLiG2HhTBPupGtjFqN 6t9R4Fw7VII3UCNG4W8HeLk j7UFFuhOpzUU6qdIUlMEkwN g5gtTws hMsgLM5gOQFuetfiSGQdpM0 bOWDycKYbcBdhYF5dBAVyzd wxb097TlQvTDJ7AMGjjWPrH 0YcsO2p WbYlWDXmHFDdX0DkdBWnZTs xT111VSoyTrA1LVZrdsCwG5 LcTNHoxYzkXzC3v8B2Yd3SB DwvdGQ+ KC17ds50V2DbBwxaMis1GBY cMIK9aBJ6kC0gWQAiCCsnn3 R3aMC4B8BpdyMdia3bk0onG XBzZTog K06arOUps4O6WQJvcHW5FVA jhNjvSeUtlQ11Cdw+PGNvbG xzb2EtYyoyn7uuy8ccuXg6R jMwJSIg ylFfaFpaMBV8m5IhZj00L74 sIHdpZHRoPSIzMCUiIHZhbG fpwa1zoM0iSq9+WMTlrCR2u YF3iS8i MoWdDuM3VCbwR368KkRqtJQ uDluay5ioo5gxnYt5EoEcNE VwroVcbFhhFGY2b1DqHc26S 2NvbGdy v9HcGgm8pz04bKVey8E9hII 4D0MoIGBmocuflEHcnMmuSL 3eTVZeqielXSFxoT5sZKAkO 2g0VyIv JfT4EKdnI6OongK4RRDzlRB yVLBbhGUVfQ5kwqwhk7yyaz opXvOzKJObCWa2SEn0RWEcv WduOiBs VMQ9MhM8SVP4tZTjhI1dnQz iwazxmE7uEgr+NQd3j8qzvI VoNF8rxYK5IM96BC60qOKud 0S0cYC7 Y7PqLAGlukssbnbrnZG8WYR iMRWkxI17Tx0khWwcIn5wNT VyJBD5VVOcpBAnU4QppR0fV iAjMDAw XYCqS3YcfLWyXYcuI779KXq wCwT7LGEjniIyZ9MzGSOevF adPzC5u3M3Iz8QFA79SO72Z K21pOYq h3M6sIW4D6CvSCEygmpwwhn zwSQ3WGQuPIFhrU48Mg9woQ yjRe0eDFGuKTU8GUUtiMPeD 8BkpS1z GgCbGMDjPVKfY6CweASqHPe xF349JUueYoI6YFRnfqZfI9 AhEKTlsXkfBfR9v1Q3Bj5LB n99JA78 JW07dPXvs1P8sAY0D1UcNLY mthggstcizQD3RUMyYEJwrH 62Qs4seNxfUr9fYCBcPVK1W FRpbWVz C7CzjO7nCbNdMQZpBGClM5X dtUFeJEpcF806YPcaXbW9KW MxucAkC1EuHELezTivWwR0i 9E3Tw3Z KJsbchm6G9LiApcpwCN+PC9 3IXPnOL52kURizUHfc3msjH n0WuBqNNOvMHC0zGakFVgpg 3JkZXIt Y29 (more content not included)... Normal [facility] Progesterone LCon 01-18-2024 Progesterone LC 14.5 ng/mL Invalid Interpretation Code [facility] Comment on above: Result Comment: Foll icular phase 0.1 - 0.9 Luteal phase 1.8 - 23.9 Ovulation phase 0.1 - 12.0 First trimester 11.0 - 44.3 Second trimester 25.4 - 83.3 Third trimester 58.7 - 214.0 Postmenopausal 0.0 - 0.1 Performed At: [facility] [address] [place], [place] [id number] Sarah Beal PhD Ph:[phone] Performed By: #### [id number] #### [facility] ([facility]) [address] [place] [address] Provider Orderson 01-17-2024 Provider Orders [id number] [id number] [facility] Coding Summaryon 12-21-2023 Coding Summary HTMLBase 64 QtfdlemhSKh4bGh+PGhlYWQ +PK8NLJFtB41gnVBwzE5iR1 NMTElOSywgQVBQTElOSyIgb oBzRY0rkEDcPXMm IC8+WQ2uGDFdLebemYAzu3G 9rKA9T81vyo1xPFvqgZM2KZ DeAlHtocfwo9vnrZn1HMyeX mluOyBt BVNexV55GVI2vW04Cx82zWS geBDsy3tneYj7DvMlFQEsCN M6rOjlXBnpb3WyKITqW19jr WXts6S2 VDNqlYcwkZUrSfUmqHI2lT6 bBYmmutdyw3pcfssoTtr5bx 16aYEsv1V8uQQ8M2RphvG9Q GJvbGQg QiozqSAVfJ5jepwmc7vofsm pZrAqYYBnENw1NCl4GYLlbI gjQaSbGH34JBH9IVYtrmVhL 2FsLWFs tSngDmX2v9G4Op5MA7UYPqn eY0NNJVGPATvwvCS+PC90cj 07E0FbCalgRxj8RYOeYFV5v OV4xB8m BGPsMLccu9C6uSX8Y7FoziD gki9xa7ntAPLbCWhwV25beE Stf8Q7QXCzmIZ2DZFurZywB iBzaG93 Oyc+ECPjtTbjj5DfPjmug2c vy1mqzZj4HizpJFMfdpHuiB pmGEU9d5GtIl1tACOlpDY4t JM2yX3x AoHaByO8YVmaU776KbDwtGJ nJoflA78nI8AyuHP+PHRyPj x2PVOksNesMP6xN1TcKTCre mctbGVm qSxnWX2cLCGmgxlgMFEhrW1 xAEZqM3m2MoWmRlA4FEqgE6 YnPXCukqeeRo09oV1dBkRyY zR5ODdb V0HclqF5QFUfbNRhWZenKRY 1W58uq9T4AMBoFSAvIGH3tF F3cP1ytHdubvnqmRMnxOzyu mVydGlj FBqlPElcA834UQRazZqdOhE vZGluZyBEYXRlOiAgMDQvMT cvMjAyNDwvdGQ+SNIrNYQ1d WxlPSAn hMPeNMwwLg3vkXcrvFsvNA1 oZWQlzckgFWAdmZ0nIBQhpI QseQbbQP9kCRZianjaw303P iAxMHB0 XPSwkKVvE8ZeuQ2bJxKzCHA iNTFtF2PyuHQlRZbdB595AN seHiS2WJUgqsSuO5FgFNFhm WduOiB0 i8K0Yp3Zu6UupbmwC5WxsRG iSzNuOtqfHPr0P8ZvWxyulQ I+LT43LGRgLA10ZTi4VLT0h WxlPSdi ZSHcU3OtmE0rRjLmRUCdXEN kOyc+PHRhYmxlIHdpZHRoPS bjBEFwZrDpwMnuMT6oEf1yN GVyLWNv iQbffIXlHyNsk2jhDROtONr wIX0nkBhsG4ZuxHH8TTJcu6 u7Sx05I61nS5HxlAH+PGNvb GE9lNC2 fJ1aStMlXxQ5IKgpH303KgA jyFPvGofux9xlc4txsKs5Jd B3TNTdeaKgfAynXHS7r5MpS z80E91m IHdpZHRoPSIxNSUiIHZhbGl qiu1ytK4xEr5+JDOvcNU9gD A7gS1cWiJsXuW5FXfnX117A nRvcCIv Emcgk7rfy4eukKv9QwLjAGM tbbXvdGcsPCD1b2OzLn23Q0 BkvRkwe2XuYsd3rd17pEMxh 0E5pQC2 Y8JxBHBnjbgesXHanCjoXI9 eLVIyavbgOUSpsY6xJUIrA0 s3VzJwRcZ0VLohU4XikgK2I GJvbGQg JAChxOPNtD2hcwbfp7xhkmm rYaMnXLJtGEp6JBm7MFVvdV tzGlYkNSC4PcD4GPF3eMBuc Z4wjJbm wwcjoT5pKej+WSA5xLLraUH JUB0xThskeHV+GTAvXMU5dS irXItoLPGioL3zHSSlS5k5R iAwLjA1 TGggD8JvffR7PDMkeSJqOJI wxUTTmX0mrcxoj4oovfpfGr UuYEVyGYg3BNi3URNcxJlvR iBsZWZ0 GpA9CTO7xGShxV0vmSiywai tbW4eUkf+TzrdfPfpNTF3YO q7A4DqKog0JJUcpAmyQZ9oe GFkZGlu Ta6tiUqzjCsdUX9fMAUlbjk hr128DuHbs4iePNAbkYWlBD rtNVS8K04kq1O3IGAuQBWoE LS0jTE3 eM6rsGhephkxwXWnoScmixJ shQiiKCmjDBzbV994ENUnrC mzVuJwWOd5R6BuVkt2TFDic VxmYX6j zGLlIFexCi6dvHsriJdtBD6 eZAIlnkcgl554GqFwh8hoZZ QkzVBzHUwoSTC3M93ud4U6Q CMwMDAw PHB2iKJ7xV6hpHbsrlzsqPY mdDsgdmVydGljYWwtYWxpZ2 89XRXbkUjyCtJqdGu6A5XvZ it7TANi gQalOY9pkQFoFMguZu4usFr nkGiaHP9qYBDevyndk119Jr Wlw3hrTMDrxJEmKDzxZED3L 23tq5A7 LVAgINKkVKV5fZS9tL0pjRy nbjogbGVmdDsgdmVydGljYW mzQXmkB771AYZnwAdsHxNpb GllbnQg FOsoCWd3U5SyEqymsMA+PC9 9CPGgKO93xASwyMBfm0verI a4OfOrTUFjOAA3nTkfKUfbb 3JkZXIt N98jdIXgi0K4JCIjoEunwIS zLcIytRW6rT8hWMebujlyz2 cchxtoEpnml3puct86gX67U 29sIHdp ZHRoPSIzMCUiIHZhbGlnbj0 stR7jOq9+AUVmzDL1mHS6zK 2nDIPjWwG8FLxjF380CaFns CIvPjxj t1ztp8zmwHk5JxO6TQFsdqA ebLdvJEO3t9HoXg21U07tUU dpZHRoPSIyMCUiIHZhbGlnb n7vsM4e Ii8+PCPgaJW0mCU3oW1jRgB kYiR4SWaiH410JtWyhEAiYc ezF92uW6MffKK+CWVgIlh7Y CBzdHls RH2dhEOhGPudAt0rBUH6WkS sYcQbXOvtD4WtCADuwjgbci gmjGD3HBCdFANwqO66Pr4zs DogMTBw hIORwM7ufmymo1ypilmcYqZ sKNBsBJb2CGo6LXDbwMtnUa ScWBR8QcS2OYP9oBHitA5ep Glnbjog rR5lI0VwAVTpmjvwFr41hO4 vXcScThF5XZexKwk+Q1JBV0 ZPUkQsIEJSRUFOTkUgTUlDS EVMTEU8 P6RhZea8QCJtgOdcNB1vfNW eMTbgQw8svFbsbQakQC8bOG NohfgbEDNgnU9iRCNjmMCxp YrqXK2w HQBxbpvsa283RyMfJHO5VCP zsIMkN0FjgL8gUbUqEGRjYT GrN2YfxAUbYQobJ301XNqwZ tO6SVNb glFqN9PpUGHguZlmVoW9e8N 1Gq1kEk2mOY2qFJg3QF16PT 09rHVby4C6gLE4R8EtRCGyn mctcmln yWQ4BPEwBRHyzI87wLXpVYx qVg4ri6H1n142ESZoESChzP 87Pf9daJrsQXKpgKSAbY2ut hyck2lq ofjnFaWrQJNhMHa6SJs3VJN kyNsfLrTqFOL8EmW8ZUG6aE FrbE5fyUxczvzdwZ6bKnt+M jUgWWVh oyF3P1XuSzo1QNRwcPprQJ6 cxZMxSXzoFn6hhBfrfZzrWO 8xRYXxskzxTAFugB6tJSEgf HRvbTog EV8jIMXsoldpp892OrTpCEM 4PLYdqEYyS4QmpK5jWhNkPW SqGAQfB4JlyOFvGHsnM978G GxlZnQ7 TLDddoXxM8MtXMVtvEuyNeA 1t7D4Ig7MWU2VKZJ2C5RwHa w0WOIreVbjTX9irSFqSJniW u4ufFdq iXorKF3hVABfuquqORZfyC1 cUOIjmVVocUemNQ6lTXYbic czm053KbKkQFS3RAMaoTYyK 2CumX9m UuDbODDgPCXmQ7HowRSjQIv zA369YNogVuB2DTBbdzMmF5 QcXTNbqRffUjB3h1D1Xq7GC DwvdGQ+ OG00kr82Y2YfAkeeSvt3CEK dOIA6aXE9oO9sVSRiVXkrv3 U0dFQ5O1InsuIphi2qd2qaV XBzZTog U33wlCDqj1Q4CZAjeZV6HVN hxXetCmHkdD15Ofc+PGNvbG nby8PgOkhwt1sty7gkrWo5O jMwJSIg suOahGetVEY0d4ApNf64T71 sIHdpZHRoPSIzMCUiIHZhbG twlm1xzF1eDq8+XLSeqBS5g KZ6pZ9p EqRmWlQ8NAfyG387ItUzoGH bNovnw6hed7ysvOa7SlZhNM TnenTrrUaaUZP7a9NvJi40G 2NvbGdy x4KgNqv3nt91gROnk7I0iLQ 8V3HiKTQasgpgtPQdlNqnEI 2dJRRudvtcRCPmcZ6gUXOgD 8p4KaQk CiL9NIubD0QsbmU7CJNedQP nKGClcECCoD2libmob2jcpo dyRzMwSMLoPMs1SAu3NCEru WduOiBs QYL7GjY5DUJ9dKDmiS3cpLo rilimhO4sQqo+QTl5x3xmiW BtLC5zjPF7DC74KG86aWJuj 1D7xTW4 U7PtNBRzdecqjctgjVJ0PPZ iLPSrmD50Xl0vcPutEo8vHZ AqVAA0HKPayGYuY3MmsE4oL iAjMDAw NCDaV9LrrESpVLosH396AWz jYeI2JCMcgjAaI3LdRBQxvQ caDvG2w4A5Og5IKQ85FA91R X62jVJb y2P9aIY5H7ThVAJifwebhrr ziVY0FOQsGWTjeI41Yj6arW mxKs5jSXHgWXX2UNKriXRwM 5LdoA1a CeZaDKOhUESxS5RncOVgQEz aA393ZYznQqH6XDCyjyBqP4 BfXNDliWsxEeF5e5B3Wi1NL b43WF05 NR14mUExx7F6eWS2O0VjXWH behrrhidpkWQ8KEKgRGRmbQ 31Pq9rxZwfEw5hAQGoKHP0K FRpbWVz K8FasR8gChRoCICfDSGvR1B zlDSiIXvrC413YZhfXlD5IW GviwEyT1SkWMKxcYacXvV4i 7W9Uj3Z KGxxuiv8N8QaSxuelGU+PC9 5QQHkSH03eEGgfIPph6odcH h1BxYvXMGxWCR5uGpyFNzhw 3JkZXIt Y29 (more content not included)... [facility] Progesterone LCon 12-17-2023 Progesterone LC 9.6 ng/mL Invalid Interpretation Code [facility] Comment on above: Result Comment: Foll icular phase 0.1 - 0.9 Luteal phase 1.8 - 23.9 Ovulation phase 0.1 - 12.0 First trimester 11.0 - 44.3 Second trimester 25.4 - 83.3 Third trimester 58.7 - 214.0 Postmenopausal 0.0 - 0.1 Performed At: Lab[address] [id number] Sarah Beal PhD Ph:[id number] Performed By: #### 3 [id number] ####[facility] (DEFAULT)[address] [place] [address] Provider Orderson 12-16-2023 Provider Orders [id number] 051 [id number] TGTIFF [facility] Coding Summaryon 11-24-2023 Coding Summary HTMLBase 64 YyfqqwmfOBn8kLw+PGhlYWQ +NX2QCQYwR34qoKZkeI3sG5 NMTElOSywgQVBQTElOSyIgb aYnAL4diLFpUALv IC8+YF0eSOGkQzpflKCij2X 5tVE6N63cpg5mYFsdfIQ3HT QbCnGrubice3irxAq1QKjwB mluOyBt CGIpfF07CAP5yC77Bg43hMH etZAec6toqLd7YwKwVSDmGC U2uRkwORjlg0JmKQGuL49rh CUif0K6 YHFbhRnefITeKgIarIO9lQ6 bTDshwvraw0nswgsaIdf1vi 44iMYby4R4nTC5Z3FmlxM7E GJvbGQg RqnelRDUhM7bjenoj0ubzrq tCkArRUCkCQl7UPv2UVTphV woXeOiGL10XBH4IOXtcvDoD 2FsLWFs wIdoNaC6r1A6Aw9HS6SZIuw fR9IRLSRBJVcevZM+PC90cj 54P3VtMtwsMfj9XMZcJFS8c QO6eI1q SYIfRAffh6P7zDS0S6VoyoH wuh0xm4zeMAFlDZctC50mnU Dqv0W7HJRazAF0KSNjmIzrR iBzaG93 Oyc+PAFccZaaf9IzQarfb0a bj5bquLq3RejsKGVbfzFywL nsRLN4j0GvWg2dONJugMO7e XA4fI1h GvJuYnY4OMrcN582GyYfeMP oAnwlA72dI6FucOF+PHRyPj g8GJNwaMfhTB4zV8LfQKJlg mctbGVm fKtzKF5gELLsminvMZEbbA3 yWBQyE8g2IhApSdH8WCweN9 DtJOBnzfxqOm21pF6pVrMtL nS5RXrz Q0TxzdK4RCMryNJgQBtnIKC 4K69xa1P7ZIHvDVYxUFX8dE V8kY6ljAapocketTDikJoxl mVydGlj RKqzVCkcF205GXWzsGitCeO vZGluZyBEYXRlOiAgMDMvMj EvMjAyNDwvdGQ+BGSmDQE9a WxlPSAn nOAdSAgkCr7irAfntTtfMS5 aFHHgivwzYYQptH7pJNNekP MhnJzqTP6bLXUoiptbs895O iAxMHB0 ZFNqpBBzY4WoxD5gIzAjWQS yWUNgT4TqvSQfFKjaA317ZT vzXuT2TNLispTsG1XkGYSlp WduOiB0 i7X7Tz1Fr1YocxdhD9MjeRE oLuQxJkhuAEi9Z9UgOdxqeI I+PG35KQJeOS00CEe1VJF1d WxlPSdi VEChT2XgyD4eRcLrFAGuHGU kOyc+PHRhYmxlIHdpZHRoPS rvSURsIeGezOucJJ3xWf1rK GVyLWNv wIowjIJcOoGgt1cfDENxWHb yOF9nkCtvG3UoaNW8VVNce5 z8Cy97N51uA1TwvKS+PGNvb FI3eZB7 sN6cSuNpXwM7GAikB337NhM mmGItRsumy5dpl9hptXr3Nr K9RKNcrqMtzIvyBDU1b3QpY f18W75g IHdpZHRoPSIxNSUiIHZhbGl ake9ikN8lEe7+CFTijNJ5gU P3lZ0tSzOmIzH3LLokW784N nRvcCIv Pdjoc6gjd9kavVs5KuLsKNI nplLntTorSRY4u8BeLc49K0 HyoXyuw4CuZae8af11qYAab 9G8jVO1 M0PvFQVlhwjeiEGoeZhpJQ0 bWCJiflyaBGHidU7oLTWzX9 h9TwBbNmG6KGpcX3ZcxaW7O GJvbGQg QNVgkMDMwI3hrdcjm2cyakv pSyJmEKJsMWw9NFp5RAVmlY moIvIhGRO1VyE5MQE9zINum E5hfIts plhiaW1wSwk+PRI5zHRouIJ IFQ5qObvzkEW+RUDjXCF7rS cxVDexVTOxgW9oKMUpZ1g8W iAwLjA1 NEffK3BsmaJ1LTJbjAAfHGL wqUREeB8itrrvf2odbsuqTq UbIDDoDFe5LUr8BNKugWqoI iBsZWZ0 CoS4JSC5mZVszW5kpWrysbl mtL0nIuj+XytdnBpdMTK4WA j9L5MnTtj0XUCyhHspXZ6fj GFkZGlu Eo5uxCndtWxiBP6jNJVhtml qp627RwHlj5izHZXuiWUaPR moLKH4B94in5X0MJZxIUZdG VP4eEA5 wN0agRcwfeedlIBquKbcsbT nzPrjJJptBStvG574KZHseO msGfUrLCb4Z5CdRug1RCZsz MvnAG3n rXNrEThcEg2emGaydLaySV7 zVIXyqndeg510GrWji4kaRP JyrDEoRGocCHO2K25cf4B6H CMwMDAw GGO3yEL2sE7foZsxghzocDB mdDsgdmVydGljYWwtYWxpZ2 83YPIedSuqXjRirBm2K2CwA hb4OCHs uUhgYE6cdTGxVIkmUx9joOu czPwcPC7qMDKjnzmob084Iz Nxt1tpSTGjeSXiTQokOXK8D 14fw2P8 PCLvXPZlIGI0iYS3rC3kaHi nbjogbGVmdDsgdmVydGljYW ygQOovM263PIPnaXvwJkLpi GllbnQg NRjgFUu2W5DiXuemoQH+PC9 4QKVjGN12dLGyvOPtf7rfcD q5BmIqUGAvCIJ7xBsfQZlgh 3JkZXIt X34ocGGuq6Y7KEYbwZfwoYI sQiHavXB3hF6oNPedcmqxq1 ypgyxdPgzxa5cebg25sI19I 29sIHdp ZHRoPSIzMCUiIHZhbGlnbj0 exU3kKk8+WOCbyNB1zQC8lN 4tDVYgYvZ5PUarW475IeMzz CIvPjxj m2zum3vscMu2VjG2PVRtkyJ bsZvaMPH0v7WdTn26G59sSI dpZHRoPSIyMCUiIHZhbGlnb t5nbD4g Ii8+IRRzuTE2mTM3fY0oXgS oXyG2MQwuA936IcMpjBPzEo ybB16bQ5FogUS+VUEgThk9M CBzdHls TZ8xrLNgOAhiOd0jLUG6GxW aFdOyFMckL4MaHQOtyijxsi yxeUY8LRSzZACcmG00To4ij DogMTBw aNHFrB3lgomim4hiutmkFiQ pTGPuBCg8LKr1MFIycKujYs GzNHY4AqR6FEJ5bFHynZ0qz Glnbjog bK1eS3TpALQnxduiRt90aE9 dZoAxJhZ2KCnbQli+Q1JBV0 ZPUkQsIEJSRUFOTkUgTUlDS EVMTEU8 Z7IxUao5GMLloDilRV8roHV fTQiwZp6fsUyglTrzBE3xAF DmiquzJYOgqU4jDKDcoCCrs ZnsAP2b KHYrxwviw532JnOgPKF7VXD hbBNeO6SoqZ4sPtOrPMQtRW YjD6EsdQLjMVleO736ZSswX pW2BUOu zsKuN3VzWJDxyCgbFgL3k4H 9Dm0aPl8rAX5tJGg0RK34WT 70bZVgq4B6tQV5X7OhQKXvx mctcmln hCX7HHOjVUHzsT70zPJbMZu uMt2ps1J3n408TTPnNXAftZ 73Gn4rkCmiLVMuvNZVeM7sy cxnz1ox vpxoUbPbVJHdGAa2VRy8RVZ mnQfjEyTpUUX6TsZ3NPI7eT RvgP7ohNhldhcbxV9dCka+M jUgWWVh jkS1B4DfOev5FSCztLngYV0 ugELeFQubZd2mrNijsJdwTP 4tFTTkddbkTLOcuN4gXGEpc HRvbTog OE1rZJTgdfrtt059PvShHCP 8OJOrpXOiY4FbnJ7gEbRySS VuHCJeP7DmkLDtCOypX512Q GxlZnQ7 FCSdwmVaY6AsJEIjnOswJvT 2w2F2Td4JZW8LBXV7H8FiDz o7AKZibYlyIL1kqIJxXSrdM j5ilCpe mJftBT2iYWGgmffdATGfjX6 lDJZodKDpiHmlIF1dPJBbib dgj337EwJhJCK9CZJwpHHxE 8QgvJ3l JdDrWTZnMOVuO2AahYZnAJr nU714IMtpLoY2WRIrcxJvF2 YaXDSldIgcSyN4m2H3Gg9Pq BReX5Lu G2o5D7RgFjsqgLR+SA78ZDU nOE15uEDomTVpt9kjmJk6Qe PlAPAxPVV1yLmyPWyek4EhS EJfB98f uNHzp6K9XGIilHiveRTmNhU meXS8qV7iGIpqxdhea1omhe aaYhroh0qran20bI06O90pG HdpZHRo ZZLvEENaBTQhyIdzjb7hvC2 wIi8+GNHygYT3pSF3fZ9oFz JqXbU0YWcjW848IiNqkDUvF kuig0eq g8npkKp2SzSyTTCzqfZtoDc rTTT1h7IqEe93K68xQQoiDB IvYHDjUBQsJPMzrMxwlm4sd G9wIi8+ IF5eu9lciw01zH53uSW+PHR uHFV1yKwcLGcuWGGzbK2rOA eeSxA8DBZwWlAqmV72rIEzP LvwRi3a lCdviHplZL9xFIIrrxosl86 0HkLjd7glKQKviXWcCMwaNB S5P03su8L6VGJvNYStHUY0r IZ3uB6m bGlnbjogbGVmdDsgdmVydGl vDEhhWUihG196XHUuxMrePt ZhuUXlD6iztdZVFC4tUcqja GQ+PHRk DTO9zButPFmmVYGhqU4pVQL lH8d5DkCkYsB0CSrkC4Rate S1RTEifDYnFUAoxHIUnI2ip bkqh2de lgegNoDhQKCxAAc9BFr8ZQH hqKyjYpDrLOV3BcE3FBP8pI QpsJ2xeQhfxxmouZ0kDco+R klOOjwv dGQ+NZOhPPK5fAgfYFxyNQG hyA9xLNLvE0n2OvFhFlK9RM dkV4WrijQ7IFLjwKGfSLBoa XKTbF7a vzgql4njbevjTeLlKFIkGYm 1SXd6PGFndTsgWpXkHZS3Ct X6PVD3qAQrmX5reAnesxdjo G9wOyc+ TVJOOjwvdGQ+KTHeARZ3aDd dCMheKZNkpW7tSTSfY9c6Ps MsBzT4WThwI2UiroE8HNTej GQgMTBw bLGVbM4idasfy7adwpyoYmM mQKNkHIv1FHs5GXInqBxbJu NyFNO6ToS5DGO7lWUtpC9jr Glnbjog gM8nGkb+TEJ7RBQ2FN40GJ1 4K8RwUpiwdXHsjGT+PHRhYm xlIHdpZHRoPScxMDAlJyBzd MsjSH8d Ym9 (more content not included)... Normal [facility] ED Clinical Summaryon 2023 ED Clinical Summary [facility] - Emergency Department [address] [place], [place] [id number] ED Clinical Summary PERSON INFORMATION Name: SHERLY ASTUDILLO Age: 23 Years Sex: FEMALE : 2000 MRN: Acct#: Visit Reason: Laceration of finger; LEFT INDEX FINGER CUT Arrival: 11/19/2023 09:14:04 Discharge: 11/19/2023 10:10:00 LOS: 000 00:56 Check In: 11/19/2023 09:14:04 Checkout:11/19/2023 10:10:00 Address: [address] [place] [id number] PCP: Radha Gomez MD PROVIDER INFORMATION Provider [...] Patient indicated that she was using a sample box maker. She used a sharp knife, and [...] History Medical history: Resolved Ankle fracture, left ([id number]): Resolved. Ankle impingement syndrome ([id number]): Resolved., Reviewed as documented in chart. Surgical history: Cholecystectomy ([id number])., Reviewed as documented in chart. Family history: [...] Polycystic ovaria (more content not included)... Normal [facility] ED Note - Physicianon 2023 [...] Patient indicated that she was using a sample box maker. She used a sharp knife, and [...] History Medical history: Resolved Ankle fracture, left ([id number]): Resolved. Ankle impingement syndrome ([id number]): Resolved., Reviewed as documented in chart. Surgical history: Cholecystectomy ([id number])., Reviewed as documented in chart. Family history: [...] and orient (more content not included)... Normal [facility] ED Note-Nursingon 11-19-2023 ED Note-Nursing Pt ambulatory back t o ED rm 6. Pt C/O Left index finger laceration. Pt states she was trying to open a box and cut the finger with a sample box maker. The wound on the index finger is a straight line of 4cm with a width of 0.2cm. States last tetanus was more than 5 years ago. Pt is A/Ox4. Normal [facility] ED Patient Summaryon 024 ED Patient Summary [facility] - Emergency Department [address] [place] [address] PATIENT DISCHARGE INSTRUCTIONS Patient Information Name: SHERLY ASTUDILLO Age: 23 Years Date of : 2000 Reason For Visit: Laceration of finger; LEFT INDEX FINGER CUT Arrival Time: 11/19/2023 09:14:04 Primary Care Physician: Radha Gomez MD Attending Physician: Sreedhar Cheney MD Comment: Visit Diagnosis: Diagnoses This Visit Laceration of finger ([id number]) Laceration of left index finger (S61.211A) The Pharmacy at [facility] is open Tuesday through Tuesday from [...] alcohol and/or drug addiction problems; contact the [facility] 28/03 Crisis Hotline -Text 2VOMF of [phone]. If you received any narcotics, sedation, or [...] legal documents With: Address: When: Radha Gomez [address] [place] [id number] Business (1) Within 5 to 7 days Comments: Reviewed discharge care instruction. Continue with therapy as outlined by Dr. Cheeny. Keep area clean and dry. May remove dressing after 5 to 7 days. Change external dressing as needed. Avoid for bending of injured finger Contact your family doctor or PCP within the recommended time. Return to ER for any worsening symptoms especially any symptom that concerns you. Medication Information: The exam and treatment you received today in the [facility] Emergency Department were for an urgent problem and are not intended as complete care. It is important for you to follow up with a doctor, nurse practitioner, or physician?s floor covering printer assistant for ongoing care. If your symptoms [...] so we can reach you if necessary. [facility] Emergency Department has provided you with a complete list of medications post discharge. Please inform your chain builder loom control/provider of your visit and for further instruction [...] better healing. Unl (more content not included)... [facility] 01-04-2022 L --- Specimen: [id number] Received: 01/05/22 Status: QUOC Terrynavin Num: [id number] Spec Type: Surgical Subm Dr: Rodney Lema MD Tissues: A Skin-Other than Cyst, tag, debridement or plastic repair (SCALP) Procedures: HE Stain/5, Gross/Micro L4 Patient Age/Sex Location Account Attending Physician Sherly Astudillo [facility] [id number] Rodney Lema MD SPEC NUM: [id number] RECD: 01/05/22 STATUS: QUOC GARBER NUM: [id number] JANE: 01/04/[address] [facility] [address]: Rodney Lema MD ENTERED: 01/05/[address] [facility] [address]: Dea,Lab SPEC TYPE: Surgical DEPT: MAG [...] Type of Fixative: 10% Neutral Buffered Formalin (ESTELA/HUNTER) Specimen: [id number] Received: 01/05/22 Status: ROYAValerie Garber Num: [id number] Spec Type: Surgical Subm Dr: Rodney Lema MD Tissues: A Skin-Other than Cyst, tag, debridement or plastic repair (SCALP) Procedures: HE Stain/5, Gross/Micro L4 Patient: AstudilloSherly [id number] (Continued) Specimen: [id number] Received: 01/05/22 (Continued) Signed (signature on file) Debora Cintron MD 01/07/22 0930 Specimen: [id number] Received: 01/05/22 Status: ROYAValerie Garber Num: [id number] Spec Type: Surgical Subm Dr: Rodney Lema MD Tissues: A Skin-Other than Cyst, tag, debridement or plastic repair (SCALP) Procedures: HE Stain/5, Gross/Micro L4 Patient: Sherly Astudillo [id number] (Continued) Specimen: [id number] Received: 01/05/22-8000 (Continued) Microscopic Description Six glass slides with H E stained material and two IHC stained slides have been examined. The microscopic findings support the above pathologic diagnosis. ANALYTE SPECIFIC REAGENT (ASR) DISCLAIMER: The use of one or more reagents in the above tests is regulated as an analyte specific reagent (ASR). The performance characteristics were determined by the [facility] of [facility]. Immunohistochemistry assays have not been validated on decalcified tissue. Results should be interpreted with caution given the possibility of false negative results on decalcified specimens. They have not been cleared by the [place] Food and Drug Administration. The FDA has determined that such clearance or approval is not necessary. CPT Codes 20132, 26853, 53570 Specimen: [id number] Received: 01/05/22 Status: QUOC Garber Num: [id number] Spec Type: Surgical Subm Dr: Rodney Lema MD Tissues: A Skin-Other than Cyst, tag, debridement or plastic repair (SCALP) Procedures: HE Stain/5, Gross/Micro L4 Patient: Sherly Astudillo [id number] (Continued) Signed (signature on file) Debora Muller (more content not included)... [facility] Cytology Cervical or vaginal smear or scraping studyon 12-26-2019 [facility] Vital Signs Date Time Vital Sign Value Performing Clinician Raymondi perez 11-06-2024 08:46-0500 Body mass index (BMI) [Ratio] 44.01 kg/m2 Emily TALBERT Work Phone: [facility] 11-06-2024 08:46-0500 Body weight 127.46 kg Emily TALBERT Work Phone: [facility] 11-06-2024 08:46-0500 Diastolic blood pressure 76 mm[Hg] Emily TALBERT Work Phone: [facility] 11-06-2024 08:46-0500 Systolic blood pressure 128 mm[Hg] Emily Lundy PA Work Phone: [facility] 10-22-2024 14:46-0500 Body mass index (BMI) [Ratio] 43.04 kg/m2 Cole Celeste DO Work Phone: [facility] 10-22-2024 14:46-0500 Body weight 124.65 kg Cole Celeste DO Work Phone: [facility] 10-22-2024 14:46-0500 Diastolic blood pressure 70 mm[Hg] Cole Celeste DO Work Phone: [facility] 10-22-2024 14:46-0500 Systolic blood pressure 116 mm[Hg] Cole Celeste DO Work Phone: [facility] 10-08-2024 13:57-0500 Body mass index (BMI) [Ratio] 42.15 kg/m2 Emily Lundy PA Work Phone: [facility] 10-08-2024 13:57-0500 Body weight 122.07 kg Emily Favian PA Work Phone: [facility] 10-08-2024 13:57-0500 Diastolic blood pressure 82 mm[Hg] Emily Lundy PA Work Phone: [facility] 10-08-2024 13:57-0500 Systolic blood pressure 122 mm[Hg] Emily Lundy PA Work Phone: [facility] 09-10-2024 14:35-0500 Body mass index (BMI) [Ratio] 40.94 kg/m2 Cole Celeste DO Work Phone: [facility] 09-10-2024 14:35-0500 Body weight 118.57 kg Cole Celeste DO Work Phone: [facility] 09-10-2024 14:35-0500 Diastolic blood pressure 76 mm[Hg] Cole Celeste DO Work Phone: [facility] 09-10-2024 14:35-0500 Systolic blood pressure 118 mm[Hg] Cole Celeste DO Work Phone: [facility] 08-08-2024 11:09-0500 Body mass index (BMI) [Ratio] 39.37 kg/m2 Cole Celeste DO Work Phone: [facility] 08-08-2024 11:09-0500 Body weight 114.03 kg Cole Celeste DO Work Phone: [facility] 08-08-2024 11:09-0500 Diastolic blood pressure 72 mm[Hg] Cole Celeste DO Work Phone: [facility] 08-08-2024 11:09-0500 Systolic blood pressure 120 mm[Hg] Cole Celeste DO Work Phone: [facility] 07-10-2024 10:45-0500 Body mass index (BMI) [Ratio] 38.37 kg/m2 Cole Celeste DO Work Phone: [facility] 07-10-2024 10:45-0500 Body weight 111.13 kg Cole Celeste DO Work Phone: [facility] 07-10-2024 10:45-0500 Diastolic blood pressure 74 mm[Hg] Cole Celeste DO Work Phone: [facility] 07-10-2024 10:45-0500 Systolic blood pressure 118 mm[Hg] Cole Celeste DO Work Phone: [facility] 06-07-2024 13:09-0400 Body mass index (BMI) [Ratio] 38.53 kg/m2 Nom Nurse [facility] 06-07-2024 13:09-0400 Body weight 111.58 kg [facility] Nurse [facility] 06-07-2024 13:09-0400 Diastolic blood pressure 72 mm[Hg] [facility] Nurse [facility] 06-07-2024 13:09-0400 Systolic blood pressure 116 mm[Hg] [facility] Nurse [facility] 05-08-2024 11:32-0400 Body height 170.2 cm Cole Celeste DO Work Phone: [facility] 05-08-2024 11:32-0400 Body mass index (BMI) [Ratio] 39.16 kg/m2 Cole Celeste DO Work Phone: [facility] 05-08-2024 11:32-0400 Body weight 113.4 kg Cole Celeste DO Work Phone: [facility] 05-08-2024 11:32-0400 Diastolic blood pressure 80 mm[Hg] Cole Celeste DO Work Phone: [facility] 05-08-2024 11:32-0400 Systolic blood pressure 124 mm[Hg] Cole Celeste DO Work Phone: [facility] 10-06-2023 08:53-0500 Body height 170.2 cm Cole Celeste DO Work Phone: [facility] 10-06-2023 08:53-0500 Body mass index (BMI) [Ratio] 38.28 kg/m2 Cole Celeste DO Work Phone: [facility] 10-06-2023 08:53-0500 Body weight 110.86 kg Cole Celeste DO Work Phone: [facility] 10-06-2023 08:53-0500 Diastolic blood pressure 72 mm[Hg] Cole Celeste DO Work Phone: [facility] 10-06-2023 08:53-0500 Systolic blood pressure 120 mm[Hg] Cole Celeste DO Work Phone: [facility] Healthcare Encounters Encounter Date Encounter Type Care Provider Facility Start: 11-12-2024 End: 11-12-2024 Clinisync Result Encounter Cole Celeste DO Work Phone: [facility] External Department Unsolicited Start: 11-12-2024 End: 11-12-2024 Clinisync Result Encounter Cole Celeste DO Work Phone: [facility] External Department Unsolicited Start: 11-06-2024 End: 11-06-2024 Michelle TALBERT Work Phone: [facility] Start: [...] Available Start: 10-25-2024 ambulatory Radha Gomez Facility: [facility] Start: 10-24-2024 End: 10-24-2024 Clinisync Result Encounter Emily TALBERT Work Phone: [facility] External Department Unsolicited Start: 10-24-2024 End: 10-24-2024 Clinisync Result Encounter Emily TALBERT Work Phone: [facility] External Department Unsolicited Start: 10-24-2024 End: 10-24-2024 ambulatory [facility] Start: 10-22-2024 End: 10-22-2024 Office outpatient [...] Start: 10-18-2024 End: 10-18-2024 ambulatory COLE R CELESTE [facility] Start: 10-15-2024 End: 10-15-2024 Chart abstracting Scanning Provider External Maternal- Medicine at [facility] Start: 10-08-2024 End: 10-08-2024 Bamboo flowsheet Emily [...] EMILY LUNDY Not Available Start: 10-06-2024 ambulatory [facility] Facility: [facility] Start: 09-24-2024 ambulatory [facility] Facility: [facility] Start: 09-10-2024 End: 09-10-2024 Clinisync [...] of Start: 09-10-2024 End: 09-10-2024 ambulatory COLE ALONSO Not Available Start: 09-10-2024 End: 09-10-2024 ambulatory [...] 15 minutes Cole Celeste DO Work Phone: [facility] Comment on above: Well woman exam with routine gynecological exam; Second trimester ; 17 weeks gestation of ; Vaginal discharge; STD exposure; Screening, , for anatomic survey; Elevated glucose tolerance test Start: 08-08-2024 End: 08-08-2024 Patient encounter procedure Cole Celeste DO Work Phone: [facility] Work Phone: Start: 08-08-2024 End: 08-08-2024 ambulatory COLE CELESTE Not Available Start: 07-31-2024 End: 07-31-2024 Clinisync Result Encounter Cole Celeste DO Work Phone: [facility] Unsolicited Start: 07-31-2024 End: 07-31-2024 Clinisync Result Encounter Cole Celeste DO Work Phone: [facility] Unsolicited Start: 07-10-2024 End: 07-10-2024 Bamboo flowsheet Cole Celeste DO Work Phone: [facility] Start: 07-10-2024 End: 07-10-2024 [...] Start: 07-05-2024 End: 07-05-2024 ambulatory Radha Gomez Facility:[facility] Start: 07-04-2024 End: 07-04-2024 Clinisync Result Encounter Cole Celeste DO Work Phone: [facility] Unsolicited Start: 07-04-2024 End: 07-04-2024 Clinisync Result Encounter Cole Celeste DO Work Phone: [facility] Unsolicited Start: 06-07-2024 End: 06-07-2024 ambulatory [facility] Celeste Nurse [facility] Comment on above: GA: 8w6d Start: 06-01-2024 End: 06-01-2024 ambulatory Radha Gomez Facility:[facility] Start: 05-28-2024 End: 05-28-2024 Emergency department patient visit Evonne Cheung Facility:[facility] Start: 05-28-2024 End: 05-28-2024 ambulatory Spenser KATE Facility:[facility] Start: 05-08-2024 End: 05-08-2024 Bamboo flowsheet Cole Celeste DO Work Phone: [facility] Start: 05-08-2024 End: 05-08-2024 Bamboo flowsheet Cole Celeste DO Work Phone: [facility] Start: 05-08-2024 End: 05-08-2024 Office outpatient visit 15 minutes Cole Celeste DO Work Phone: [facility] Comment on above: Missed menses Start: 05-08-2024 End: 05-08-2024 ambulatory COLE ORTEZO Not Available Start: 04-24-2024 End: 04-24-2024 Patient encounter procedure Kenya Richter DDS Work Phone: [facility] Comment on above: Abnormal tooth erupt ion (Primary Dx); Impacted third molar tooth Start: 04-24-2024 ambulatory KENYA RICHTER Facili ty:[facility] Start: 03-14-2024 End: 03-14-2024 ambulatory COLE ALONSO Facility:[facility] Start: 02-14-2024 End: 02-14-2024 ambulatory Kulwant Jason Facility:[facility] Start: 01-17-2024 End: 01-17-2024 ambulatory [facility] Facility:[facility] Start: 12-16-2023 End: 12-16-2023 ambulatory [facility] Facility:[facility] Start: 11-19-2023 End: 11-19-2023 Emergency department patient visit [facility] Facility:[facility] Start: 10-06-2023 End: 10-06-2023 Office [...] Cole Celeste DO Work Phone: Start: 09-10-2024 TB DRUG SCREEN RAPI D (URINE) Cole Celeste [...] AM EDT Routine [facility] [address] [place] [address] Cole Alonso DO [address] [place] [address] [facility] Start: 11-06-2024 End: 11-06-2025 Measurement of glucose 1 hour after glucose challenge for glucose tolerance test Glucose tolerance, 1 hour Lab Routine Diabetes mellitus screening Expected: 11/06/2024 (Approximate), Expires: 11/06/2025 [facility] Comment on above: Expected: 11/06/2024 (Approximate), [...] 10/18/2024 1:00 PM EST Appointment [facility] [address] [place] [address] [facility] Start: 10-08-2024 End: 10-08-2025 CBC panel - Blood by Automated count CBC Lab Routine Diabetes mellitus screening Expected: 10/08/2024 (Approximate), Expires: 10/08/2025 [facility] Work Phone: Comment on above: Expected: 10/08/2024 (Approximate), Expires: 10/08/2025 Start: 10-08-2024 End: 10-08-2025 Measurement of glucose 1 hour after glucose challenge for glucose tolerance test Glucose tolerance, 1 hour Lab Routine Diabetes mellitus screening Expected: 10/08/2024 (Approximate), Expires: 10/08/2025 [facility] Comment on above: Expected: 10/08/2024 (Approximate), Expires: 10/08/2025 Start: 10-08-2024 End: 10-08-[address] [facility] Comment on above: Arrived Start: 09-10-2024 End: 09-10-2025 Drugs of abuse panel - Urine by Screen method Rapid drug screen, urine Lab Routine , unspecified gestational age Encounter for supervision of normal first in first trimester Expected: 09/10/2024 (Approximate), Expires: 09/10/2025 [facility] Work Phone: Comment on above: Expected: 09/10/2024 (Approximate), Expires: 09/10/2025 Start: 09-10-2024 End: 09-10-2024 Patient encounter procedure 09/10/2024 2:00 PM EST Routine [facility] [address] [place] [id number] Cole Alonso, DO [address] [place] [address] [facility] Start: 09-10-2024 End: 09-10-2024 Professional / ancillary services management 09/10/2024 1:00 PM EST Ancillary Procedure [facility] [address] [place] [id number] [facility] Start: 08-08-2024 End: 02-06-2025 [...] anatomic survey Expected: 08/08/2024 (Approximate), Expires: 08/08/2025 [facility] Comment on above: Expected: 08/08/2024 (Approximate), Expires: 08/08/2025 Start: 08-08-2024 End: 08-08-2024 Patient encounter procedure [facility] Comment on above: Arrived Start: 07-10-2024 End: 07-10-2025 Measurement of glucose 1 hour after glucose challenge for glucose tolerance test Glucose tolerance, 1 hour Lab Routine Diabetes mellitus screening Expected: 07/10/2024 (Approximate), Expires: 07/10/2025 [facility] Work Phone: Comment on above: Expected: 07/10/2024 (Approximate), Expires: 07/10/2025 Start: 07-10-2024 End: 07-10-2024 Patient encounter procedure [facility] Comment on above: Arrived Start: 07-04-2024 End: 07-04-2024 Patient encounter procedure 07/04/2024 3:00 PM EDT Office Visit [facility] [address] [place] [id number] Kenya Richter, DDS [address] [place] [address] [facility] Start: 06-07-2024 End: 06-07-2025 ABO/Rh ABO/Rh Lab Routine Missed menses , unspecified gestational age Expected: 06/07/2024 (Approximate), Expires: 06/07/2025 [facility] Comment on above: Expected: 06/07/2024 (Approximate), Expires: 06/07/2025 Start: 06-07-2024 End: 06-07-2025 Blood type and Indirect antibody screen panel - Blood Type and screen Lab Routine Missed menses , unspecified gestational age Expected: 06/07/2024 (Approximate), Expires: 06/07/2025 [facility] Work Phone: Comment on above: Expected: 06/07/2024 (Approximate), Expires: 06/07/2025 Start: 06-07-2024 End: 06-07-2025 Drugs of abuse panel - Urine by Screen method Rapid drug screen, urine Lab Routine , unspecified gestational age Encounter for supervision of normal first in first trimester Expected: 06/07/2024 (Approximate), Expires: 06/07/2025 [facility] Comment on above: Expected: 06/07/2024 (Approximate), Expires: 06/07/2025 Start: 06-07-2024 End: 06-07-2025 US Pelvis transvaginal US OB transvaginal Imaging Routine Missed menses Expected: 06/07/2024 (Approximate), Expires: 06/07/2025 [facility] Comment on above: Expected: 06/07/2024 (Approximate), Expires: 06/07/2025 Start: 06-07-2024 End: 06-07-2024 ambulatory 06/07/2024 1:00 PM EDT Initial [facility] [address] [place] [id number] [facility] Start: 06-07-2024 End: 06-07-2024 Professional / ancillary services management 06/07/2024 12:30 PM EDT Ancillary Procedure [place] [phone] [facility] Start: 06-05-2024 Influenza vaccination Influenza Vacc ine (#1) [facility] Start: 05-08-2024 End: 05-08-2024 Patient encounter procedure 05/08/2024 11:20 AM EDT Office Visit [facility] [address] [place] [address] Cole Alonso, DO [address] [place] [address] Arrived [facility] Comment on above: Arrived Start: 05-06-2024 Influenza vaccination [facility] Start: 11-03-2023 End: 11-03-2023 Patient encounter procedure 11/03/2023 8:30 AM EST Office Visit [facility] [address] [place] [phone] Cole Alonso, DO [address] [place] [address] [facility] Start: 10-17-2023 End: 10-17-2023 Professional / ancillary services management 10/17/2023 8:30 AM EST Ancillary Procedure [facility] [address] [place] [address] [facility] Start: 05-06-2023 COVID-19 Vaccine ( season) COVID-19 Vaccine ( season) [facility] Start: 2019 Screening for malign ant neoplasm of cervix Pap Smear [facility] Start: 2017 DTaP,Tdap and Td Vaccines (1 - Tdap) DTaP,Tdap and Td Vaccines (1 - Tdap) [facility] Start: 2017 Hepatitis A (HAV) Vaccine (optional start 19+ years) Hepatitis A (HAV) Vaccine (optional start 19+ years) [facility] Start: 2017 Hepatitis B vaccination Hepati tis B (HBV) Vaccine (1 of 3 - 19+ 3-dose series) [facility] Start: 2016 Adult BMI Screening Adult BMI Screen ing [facility] Start: 2016 Hepatitis C screening Hepatitis C An tibody [facility] Start: 2016 Tetanus + diphtheria + acellular pertussis vaccine (product) Tdap Booster [facility] Start: 2013 Vaccination for volodymyr n papillomavirus HPV Vaccine (1 - 3-dose series) [facility] Start: 2010 Depression Screening Depression Scre ening [facility] Start: 2010 Tobacco Screening Tobacco Screening [facility] Antimullerian hormon e (AMH) Antimullerian hormone (AMH) Lab Routine Irregular periods/menstrual cycles Ordered: 10/06/2023 [facility] Comment on above: Ordered: 10/06/2023 Bacteria identified in Urine by Culture Urine culture Microbiology Routine Missed menses Ordered: 06/07/2024 [facility] Comment on above: Ordered: 06/07/2024 CBC W Auto Different ial panel - Blood CBC and differential Lab Routine PCOS (polycystic ovarian syndrome) Ordered: 10/06/2023 [facility] Comment on above: Ordered: 10/06/2023 CBC W Auto Different ial panel - Blood CBC and differential Lab Routine Missed menses , unspecified gestational age Ordered: 06/07/2024 [facility] Comment on above: Ordered: 06/07/2024 CHLAMYDIA TRACHOMATI S (GENITO/STI) CHLAMYDIA TRACHOMATIS (GENITO/STI) Lab Routine STD exposure Ordered: 08/08/2024 [facility] Comment on above: Ordered: 08/08/2024 Cytology Cervical or vaginal smear or scraping study Pap Smear Pathology and Cytology Routine Well woman exam with routine gynecological exam Ordered: 08/08/2024 [facility] Comment on above: Ordered: 08/08/2024 DHEA DHEA Lab Routine PCOS (polycystic ovarian syndrome) Ordered: 10/06/2023 [facility] Comment on above: Ordered: 10/06/2023 DHEA-sulfate DHEA-sulfate Lab Routine PCOS (polycystic ovarian syndrome) Ordered: 10/06/2023 [facility] Comment on above: Ordered: 10/06/2023 Follicle stimulating hormone Follicle stimulating hormone Lab Routine PCOS (polycystic ovarian syndrome) Ordered: 10/06/2023 [facility] Comment on above: Ordered: 10/06/2023 hCG, quantitative, hCG, quantitative, Lab Routine PCOS (polycystic ovarian syndrome) Ordered: 10/06/2023 [facility] Work Phone: Comment on above: Ordered: 10/06/2023 Hemoglobin A1c measurement Hemoglobin A1c Lab Routine Irregular periods/menstrual cycles Ordered: 10/06/2023 [facility] Comment on above: Ordered: 10/06/2023 Hemoglobin A1c/Hemoglobin.total in Blood Hemoglobin A1c Lab Routine Missed menses , unspecified gestational age Ordered: 06/07/2024 [facility] Comment on above: Ordered: 06/07/2024 Hepatitis B virus surface Ag [Presence] in Serum or Plasma by Immunoassay Hepatitis B surface antigen Lab Routine Missed menses , unspecified gestational age Ordered: 06/07/2024 [facility] Comment on above: Ordered: 06/07/2024 Hepatitis C virus Ab [Presence] in Serum or Plasma by Immunoassay Hepatitis C antibody Lab Routine Missed menses , unspecified gestational age Ordered: 06/07/2024 [facility] Comment on above: Ordered: 06/07/2024 HIV-1/HIV-2 antigen/antibody combination immunoassay HIV-1 and HIV-2 antibodies Lab Routine Missed menses , unspecified gestational age Ordered: 06/07/2024 [facility] Comment on above: Ordered: 06/07/2024 Luteinizing hormone Luteinizing hormone Lab Routine PCOS (polycystic ovarian syndrome) Ordered: 10/06/2023 [facility] Comment on above: Ordered: 10/06/2023 Neisseria gonorrhoea e DNA [Presence] in Unspecified specimen by ISHA with probe detection Neisseria gonorrhea DNA probe, direct Lab Routine STD exposure Ordered: 08/08/2024 [facility] Comment on above: Ordered: 08/08/2024 Reagin Ab [Presence] in Serum by RPR RPR Lab Routine Missed menses , unspecified gestational age Ordered: 06/07/2024 [facility] Comment on above: Ordered: 06/07/2024 Rubella antibody, IgG Rubella an tibody, IgG Lab Routine Missed menses , unspecified gestational age Ordered: 06/07/2024 [facility] Comment on above: Ordered: 06/07/2024 SURESWAB(R) ADVANCED VAGINITIS PLUS, TMA SURESWAB(R) ADVANCED VAGINITIS PLUS, TMA Pathology and Cytology Routine Vaginal discharge Ordered: 08/08/2024 [facility] Work Phone: Comment on above: Ordered: 08/08/2024 Thyrotropin [Units/volume] in Serum or Plasma TSH Lab Routine PCOS (polycystic ovarian syndrome) Ordered: 10/06/2023 [facility] Comment on above: Ordered: 10/06/2023 Thyroxine (T4) free [Mass/volume] in Serum or Plasma T4, free Lab Routine PCOS (polycystic ovarian syndrome) Ordered: 10/06/2023 [facility] Comment on above: Ordered: 10/06/2023 US for US PELVIS-TRANS VAG IF INDICATED Imaging Routine PCOS (polycystic ovarian syndrome) Ordered: 10/06/2023 [facility] Comment on above: Ordered: 10/06/2023 Immunizations Immunization Date Immunization Notes Care Provider Fa [facility] 06-12-2020 influenza virus vacc ine, unspecified formulation Cole Alonso DO Work Phone: [facility] Payers Date Payer Category Payer Medicaid [id number] 2022 Medicaid [id number] 1998 Unknown [id number] 2.16. [id number] 1998 Unknown [id number] 2.16. 840.1.836833.3.579.2.1286 1998 Unknown [id number] 2.16.84 0.1.385804.3.579.2.1258 1998 Unknown [id number] 2.16.84 0.1.086523.3.579.2.9 1998 Unknown [id number] 2.16.84 0.1.110875.3.579.2.9 1998 Unknown [id number] 2.16.84 0.1.027981.3.579.2.1259 1998 Unknown [id number] 2.16.84 0.1.870807.3.579.2.1258 1998 Unknown [id number] 2.16.84 0.1.808280.3.579.2.9 1998 Unknown [id number] 2.16.84 0.1.540899.3.579.2.1258 1998 Unknown [id number] 2.16.84 0.1.968416.3.579.2.9 1998 Unknown [id number] 2.16.84 0.1.978602.3.579.2.1258 1998 Unknown [id number] 2.16.8 40.1.906058.3.579.2. 1998 Unknown [id number] 2.16.8 40.1.155291.3.579.2. 1998 Unknown [id number] 2.16.8 40.1.486535.3.579.2. 1998 Unknown [id number] 2.16.8 40.1.185774.3.579.2. 1998 Unknown [id number] 2.16.8 40.1.435586.3.579.2. 1998 Unknown [id number] 2.16.8 40.1.405020.3.579.2. 1998 Unknown [id number] 2.16.8 40.1.548511.3.579.2. 1998 Unknown [id number] 2.16.8 40.1.840266.3.579.2. 1998 Unknown [id number] 2.16.8 40.1.149041.3.579.2. 1998 Unknown [id number] 2.16.8 40.1.703260.3.579.2. 1998 Unknown [id number] 2.16.8 40.1.590165.3.579.2. 1998 Unknown [id number] 2.16.8 40.1.424188.3.579.2. Social History Date Type Detail Facility Start: 09-15-2023 End: 05-08-2024 Tobacco smoking status NHIS Ex-smoker [facility] History of tobacco use [...] Sex Assigned At Not on file [facility] Tobacco smoking stat [facility] Tobacco smoking consumption unknown [facility] Start: 05-08-2024 End: 10-15-2024 Tobacco use and exposure Smokeless tobacco non-user [facility] Start: 04-20-2024 [facility] Start: 10-15-2024 Alcoholic beverage intake Ex-drinker (finding) [facility] Childcare Unknown [facility] Start: 12-03-2019 Sex Female (finding) [facility] Clinical Notes 10-06-2023 to 11-06-2024 NITISH Rojas - 11/06/2024 8:50 AM ESTSisis Latham, PORTAINER OPERATOR - 10/22/2024 2:50 PM NITISH Gee - 10/08/2024 1:30 PM ESTSusamadalyn Latham, PORTAINER OPERATOR - 09/10/2024 2:00 PM EST Note Date [...] of: NITISH Rojas documented in this encounter [facility] 10-24-2024 Note [facility] Note Reason for cardiology [...] mouth in the morning., Disp: , Rfl: [id number] ACID-OM3 ORAL, Take by mouth., Disp: , [...] 4 to 6 weeks Angel Luis Evans MD,[facility] 10-22-2024 History of Present illness Narrative Reason [...] nursing note reviewed. Exam conducted with a distance education teacher present. Vitals: Estimated body mass index is [...] NST/BPP to have started. Orders sent to [facility] Scheduling and [facility] Hospital to reach out to patient to schedule. Patient to return to clinic in 2 weeks for routine OIB appointment. Documented by Rose Latham LPN on behalf of: Cole Alonso DO documented in this encounter [facility] 10-08-2024 History of Present illness Narrative Reason for Appointment: Patient ID: Sherly Astudillo is a 24 y.o. female who presents for Routine Visit Patient presents today for Return OB appointment. MEDICATIONS Current Outpatient Medications Medication Instructions clotrimazole (Mycelex) 10 MG jacob 1 lozenge(s), Oral, 5x/Day, x 10 day(s), # 50 lozenge(s), 0 Refill(s), 10/16/24 8:59:00 AM DRAFTER TOPOGRAPHICAL, Pharmacy: [facility] [id number], 1 lozenge(s) Oral 5x/Day,x10 day(s), 170.18, cm, [...] Name Age of Onset Leukemia Mother Magnolia Renetta as a child Endometriosis Mother Magnolia Renetta [...] of: NITISH Rojas documented in this encounter [facility] 10-06-2024 Note Patient Education Ma terials [...] Follow these instructions at home: ? Take amaq-dna-cfrjrxt and prescription medicines only as told by [...] provider. Document Revised: 11/30/2021 Document Reviewed: 11/30/2021 [employer] Patient Education ? 2023 [employer] Infectious Disease Oral Thrush, Adult Oral [...] difficulty fighting infection (more content not included)... [facility] 09-24-2024 Note Patient Education Ma [...] these instructions at home: Medicines ? Take gwcp-ary-gxxcopd and prescription medicines only as told by [...] and water are not available, use hand in house cra. ? Do not touch your eyes, nose, [...] may represent a (more content not included)... [facility] 09-10-2024 History of Present illness Narrative Reason [...] nursing note reviewed. Exam conducted with a distance education teacher present. Vitals: Estimated body mass index is [...] Cole Alonso DO documented in this encounter [facility] 08-08-2024 History of Present illness Narrative [...] Cole Alonso DO documented in this encounter [facility] 07-10-2024 History of Present illness Narrative [...] nursing note reviewed. Exam conducted with a distance education teacher present. Vitals: Estimated body mass index is [...] or undercooked meat, and stay away from [facility]. Patient has been consulted regarding any [...] Cole Alonso DO documented in this encounter [facility] 07-05-2024 Note Patient Education Ma terials [...] and use condoms. General instructions ? Take jrah-kds-zlshybs and prescription medicines only as told by [...] provider. Document Revised: 02/19/2021 Document Reviewed: 02/19/2021 [employer] Patient Education ? 2023 [employer]. [facility] 06-07-2024 History of Present illness [...] both done at the same time at [facility] at 10 weeks . Pt desires zofran due to nausea in this . Follow Up: Patient is to have labs drawn at directed and return to office for initial OB appointment with provider. Patient may call office as needed with any concerns or questions. Nurse Visit Completed by: Bernadette Reeder MA documented in this encounter [facility] 05-28-2024 Note Education Materials Orthopedics Muscle [...] not too tight. General instructions ? Take oglo-gzg-djdivtq and prescription medicines only as told by [...] provider. Document Revised: 11/09/2021 Document Reviewed: 11/09/2021 [employer] Patient Education ? 2023 [employer] Sciatica Sciatica is pain, weakness, tingling, or [...] (pelvis). ? . (more content not included)... [facility] 05-28-2024 Note Patient Education Ma terials Follows: [facility] 05-08-2024 History of Present illness Narrative Reason [...] Cole Alonso DO documented in this encounter [facility] 04-24-2024 History of Present illness Narrative Images from the original note were not included. documented in this encounter [facility] 11-19-2023 Note Education Materials Caregiving Sterile [...] and water are not available, use hand in house cra. ? Change your dressing as told by [...] these instructions at home: Medicines ? Take pewe-rgv-hzidzfg and prescription medicines only as told by [...] C. This informatio (more content not included)... [facility] 10-06-2023 History of Present illness Narrative Reason [...] nursing note reviewed. Exam conducted with a distance education teacher present. Vitals: Estimated body mass index is [...] PCOS/insulin resistance and medication was sent to [facility] in [place]. Documented by Rose Latham LPN on behalf [...] HealthcareInstructionsNot on filedocumented in [facility] Summary Purpose Family History No [...] third molar tooth Kenya Richter, DDS [address] [place] [id number] Referral ID Status Reason Start Date Expiration Date V isits Requested Visits Authorized [id number] Pending Review 04/24/2024 04/24/2025 1 1 Scheduling [...] your procedure, you will be contacted with [id number] costs or next steps. All self-pay payments [...] the procedure: You also MUST have a recycling collections driver/escort >18yrs old present to take you [...] section and content) DATE CREATED AUTHOR 01/08/2022 [facility] DATE CREATED AUTHOR AUTHOR'S ORGANIZ ATION 09/23/2024 [facility] DATE CREATED AUTHOR AUTHOR'S ORGANIZ ATION 10/20/2024 [facility] DATE CREATED AUTHOR AUTHOR'S ORGANIZ ATION 11/07/2024 [facility] EPIC DATE CREATED AUTHOR AUTHOR'S ORGANIZ ATION 11/08/2024 [facility] DATE CREATED AUTHOR AUTHOR'S ORGANIZ ATION 11/15/2024 [facility] Reason for Visit (unrecogniz ed section and content) Reason Comments Discuss cycles Reason Comments Amenorrhea Reason Comments Routine Visit Reason Comments Well Women Visit Routine Visit STI Screening Reason Comments Abdominal Pain Care Teams (unrecognized sec tion and content) Intake Coordinator Relationship Specialty Start Date End Date Radha Gomez MD [address] [place] [phone] PCP - General Pediatrics 10/06/23 Intake Coordinator Relationship Specialty Start Date End Date Radha Gomez MD [address] [place] [address] [id number] PCP - General Pediatrics 10/06/23 Intake Coordinator Relationship Specialty Start Date End Date Radha Gomez MD [address] [place] [address] [id number] PCP - General Pediatrics 10/06/23 Intake Coordinator Relationship Specialty Start Date End Date Radha Gomez MD [address] [place] [address] [id number] PCP - General Pediatrics 10/06/23 Intake Coordinator Relationship Specialty Start Date End Date Radha Gomez MD [address] [place] [address] [id number] PCP - General Pediatrics 10/06/23 Intake Coordinator Relationship Specialty Start Date End Date Radha Gomez MD [address] [place] [address] [id number] PCP - General Pediatrics 10/06/23 Intake Coordinator Relationship Specialty Start Date End Date Radha Gomez MD [address] [place] [address] [id number] PCP - General Pediatrics 10/06/23 Intake Coordinator Relationship Specialty Start Date End Date Radha Gomez MD [address] [place] [address] [id number] PCP - General Pediatrics 10/06/23 Intake Coordinator Relationship Specialty Start Date End Date Radha Gomez MD [address] [place] [address] [id number] PCP - General Pediatrics 10/06/23 Intake Coordinator Relationship Specialty Start Date End Date Radha Gomez MD [address] [place] [address] [id number] PCP - General Pediatrics 10/06/23 Intake Coordinator Relationship Specialty Start Date End Date Radha Gomez MD [address] [place] [address] [id number] PCP - General Pediatrics 10/06/23 Intake Coordinator Relationship Specialty Start Date End Date Radha Gomez MD [address] [place] [address] [phone] PCP - General Pediatrics 10/06/23 Intake Coordinator Relationship Specialty Start Date End Date Radha Gomez MD [address] [place] [address] [id number] PCP - General Pediatrics 10/06/23 FOR RECORDS [...] BE BASED ON THE PRIMARY CLINICAL RECORDS. [facility]. provides no warranty or guarantee of the accuracy or completeness of information in this document.
[2024-11-19 11:18] VITALS: BP 138/77; PULSE 96
== END 2024-11-19 11:45 | disposition home or self-care (01) ==
LOC: US 10:53 → FBC 10:53
PROVIDERS: PCP Family Medicine; Visit Provider Obstetrics & Gynecology
DX: O36.63X0 Maternal care for excessive fetal growth, third trimester, not applicable or unspecified (principal)
CPT/HCPCS: 76818

== ENCOUNTER 2024-11-22 10:17 | Outpatient (OUT) | payer MEDICAID, SELFPAY ==
--- OUTSIDE RECORDS SUMMARY | 2024-11-22 10:31 | XMS_ITS | CCD ---
Author Organization [facility] Care Team Providers Care Director Of Government Sales Name Role Phone Radha Gomez MD Primary Care Provider [phone] Unavailable Primary Care Provider UnavailKENYA Gonzales Attending Unavailable PROVIDER, UNKNOWN Admitting Unavailable Unavailable Primary Care Provider UnavailCOLE Babin Referring Unavailable ANGEL LUIS EVANS Attending Unavailable Evonne [...] Admitting Unavailable Reza, Larissa Y Attending Unavailable Radha Gomez Primary Care Unavailable Joleneinger, Larissa Y Admitting Unavailable Reza, Larissa Y Attending Unavailable Radha Gomez Primary Care Unavailable Sreedhar Cheney Attending Unavailable Sreedhar Cheney Admitting Unavailable EMILY LUNDY Attending Unavailable CELESTE, COLE Attending Unavailable EMILY LUNDY Attending Unavailable CELESTE, COLE Attending Unavailable CELESTE, COLE Attending Unavailable COLE ALONSO Attending Unavailable COLE ALONSO Attending Unavailable COLE ALONSO Attending Unavailable Allergies Allergy Classification Reported Allergen(s) Allergy Type Date of Onset Reaction(s) Facility (1 source) No Known Medication Allergies; Translations: [No Known Medication Allergies] Propensity to adverse reactions to drug (disorder) [facility] Repository Medications Current Medications Medication [...] 50 lozenge(s), 0 Refill(s), 10/16/24 8:59:00 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 Ordering Physician: Cole Alonso D.O. Date of Service: 11/12/24 Procedure(s): US OB BPP w non-stress Accession Number(s): [id number] cc: RADHA GOMEZ ; Cole Alonso D.O. The [address] [address] Patient Name: SHERLY ASTUDILLO MRN: [facility]:[id number] date: 2000 Sex: F Assigned Patient Location: US Current Patient Location: Accession/Order Number: [id number] Exam Date: 11/12/2024 13:57 Report Date: 11/12/2024 13:58 At the request of: COLE ALONSO DO Procedure: US OB BPP w non-stress BIOPHYSICAL PROFILE: CLINICAL INFORMATION: Excessive growth COMPARISON: Pelvic ultrasound 06/07/2024 There is a single live intrauterine gestation in breech presentation. The reported gestational age is 31 weeks 3 days. The heart rate uusrrsge882 beats per minute. FINDINGS: TONE: 1 or [...] Bailey Beasley M.D.11/12/2024 1:58 PM Dictation Location: [place] [address] Electronically authenticated by: [id number] Y Date: 11/12/2024 13:58 Dictated By: Bailey Beasley M.D. Signed By: 11/12/24 1401 DD/ 1358 TD/TT: Sewage Screen Operator: [facility] Radiology, Radiologi MD juan carlos - 11/12/2024 [place] [address] Ultrasound Report Signed Patient: SHERLY ASTUDILLO MR#: [id number] : 2000 Acct:[id number] Age/Sex: 24 / F ADM Date: 11/12/24 Loc: US Attending Dr: Cole Alonso D.O. Ordering Physician: Cole Alonso D.O. Date of Service: 11/12/24 Procedure(s): US OB BPP w non-stress Accession Number(s): [id number] cc: RADHA GOMEZ ; Cole Alonso D.O. The [place] [address] Patient Name: SHERLY ASTUDILLO MRN: [facility]:[id number] date: 2000 Sex: F Assigned Patient Location: US Current Patient Location: Accession/Order Number: [id number] Exam Date: 11/12/2024 13:57 Report Date: 11/12/2024 13:58 At the request of: COLE ALONSO DO Procedure: US OB BPP w non-stress BIOPHYSICAL PROFILE: CLINICAL INFORMATION: Excessive growth COMPARISON: Pelvic ultrasound 06/07/2024 There is a single live intrauterine gestation in breech presentation. The reported gestational age is 31 weeks 3 days. The heart rate nxovduge525 beats per minute. FINDINGS: TONE: 1 or [...] Bailey Beasley M.D.11/12/2024 1:58 PM Dictation Location: [place] [address] Electronically authenticated by: [id number] Y Date: 11/12/2024 13:58 Dictated By: Bailey Beasley M.D. Signed By: 11/12/24 1401 DD/ 1358 TD/TT: Sewage Screen Operator: [facility] Radiology Study observation (narrative) [facility] OB BPP W NON-STRESS Ordered By: Radiologist Radiology on 11-12-2024 [facility] [employer] Work Phone: Outside Record[facility] 11-09-2024 Outside Records [id number] TGTIFF [facility] Urinalysis macro (dipstick) panel (U)on 11-06-2024 Bilirubin, UA Negative Negative - 4(70) +++ mg/dL [facility] Blood, UA Negative Negative - 50 Osvaldo/mcL [facility] Clarity, UA Clear [facility] Color, UA Yellow [facility] Glucose, UA Negative Negative - 1999(110) ++++ mg/dL [facility] Interpretation and review of laboratory results Normal [facility] Ketones, UA Negative Negative - 160(16) ++++ mg/dL [facility] Leukocytes, UA Negative Negative - 500+++ Edison/mcL [facility] Nitrite, UA Negative Negative - Positive [facility] pH, UA 6.5 5 - 9 [facility] Protein, UA Negative Negative - 1999(20) ++++ mg/dL [facility] Spec Grav, UA 1.02 1 - 1.03 [facility] Urobilinogen, UA 0.2 0.2 - 12 mg/dL [facility] Office/Clinic Noteon 025 Office/Clinic Note [...] 124.010 kg Body Mass Index 42.82 kg/m2 [place] Body Weight Calculated 61.6 kg BSA Measured [...] lesion. Impression and Plan Diagnosis Tinea corporis (WIS33-HK B35.4). Plan: Will treat with topical antifungal over the next 7 to 10 days.. Orders Orders Pharmacy: ketoconazole 2% topical cream (Prescribe): 1 zoran, Topical, Daily, for 10 day(s), 30 gm, 0 Refill(s). Orders Evaluation and Management: [id number] Office visit - established pt, Level 3 (Order): 10/25/2024 13:24 EST, Qty: 1, Tinea corporis - Eustachian tube dysfunction. Diagnosis Eustachian tube dysfunction (ZNM75-FC H69.90). Course: Discussed with patient most likely some fluid behind her ear. No evidence infection. Continue to just observe.. [Electronically Signed on: 10/25/2024 14:14 EST] Radha Gomez MD [Verified on: 10/25/2024 14:14 EST] Radha Gomez MD [facility] ALL CBC WITH AUTO DIFFon BASOPHILS ABSOLUTE AUTO 0 [facility] Healthcare Basophils/100 WBC (Bld) 0.3 % 0.2 - 2.0 % [facility] Eosinophils/100 WBC (Bld) 2.1 % 0.9 - 7.0 % [facility] Erythrocyte distribution width (RBC) [Ratio] 14.3 % 11.0 - 15.0 % [facility] Hematocrit (Bld) [Volume fraction] 32.1 % Low 36.0 - 48.0 % [facility] Hemoglobin (Bld) [Mass/Vol] 10.5 g/dL Low 12.0 - 16.0 g/dL [facility] IMMATURE GRANULOCYTES ABS AUTO 0.34 High [facility] Immature granulocytes/100 WBC (Bld) 3.4 % High 0.0 - 0.5 % [facility] Interpretation and review of laboratory results Abnormal [facility] LYMPHOCYTES ABSOLUTE AUTO 2.4 [facility] Lymphocytes/100 WBC (Bld) 24 % 20.5 - 60.0 % [facility] MCH (RBC) [Entitic mass] 27.9 pg 26.7 - 34.0 pg [facility] MCHC (RBC) [Mass/Vol] 32.7 g/dL 29.9 - 35.2 g/dL [facility] MCV (RBC) [Entitic vol] 85.4 fL 81.0 - 99.0 fL [facility] MONOCYTES ABSOLUTE AUTO 0.4 [facility] Monocytes/100 WBC (Bld) 4.2 % 1.7 - 12.0 % [facility] NEUTROPHILS ABSOLUTE AUTO 6.7 High [facility] Neutrophils/100 WBC (Bld) 66 % 43.0 - 75.0 % [facility] Platelet mean volume (Bld) [Entitic vol] 9 fL Low 9.5 - 13.5 fL [facility] TBH EO # 0.2 [facility] TB PLT 332 [facility] TB RBC 3.76 Low [facility] TB WBC 10.1 [facility] Office Visiton 10-24-2024 Follow-up visit [id number] Sherly Astudillo 2000 F Date Provider Department Center 10/24/2024 [id number]-[id number] LUIS EVANS Constantin Viv Family History Problem Relation Age of Onset Diabetes Mother Diabetes Maternal Grandmother Diabetes Maternal Grandfather Family Status - Relation Status Age at Mother Maternal Grandmother Maternal Grandfather Level of Service:47817 [place] OFFICE/OUTPATIENT NEW MODERATE MDM 45 MINUTES Reason for Visit and Comments: Rapid Heart Rate [439615] - Episodes of tachycardia include lightheadedness and SOB. Denies chest pain. She says sometimes HR gets up to 160's with rest. Problem [974479] - Currently 28 weeks gestation. This is her 2nd . She denies having issues like this during first . Palpitations [358395] Shortness of Breath [382394] Dizziness [605986] Normal [facility] Urinalysis macro (dipstick) panel (U)on 10-22-2024 Bilirubin, UA Negative Negative - 4(70) +++ mg/dL [facility] Blood, UA Negative Negative - 50 Osvaldo/mcL [facility] Clarity, UA Clear [facility] Color, UA Yellow [facility] Glucose, UA Negative Negative - 1999(110) ++++ mg/dL [facility] Interpretation and review of laboratory results Normal [facility] Ketones, UA Negative Negative - 160(16) ++++ mg/dL [facility] Leukocytes, UA Negative Negative - 500+++ Edison/mcL [facility] Nitrite, UA Negative Negative - Positive [facility] pH, UA 7 5 - 9 [facility] Protein, UA Negative Negative - 1999(20) ++++ mg/dL [facility] Spec Grav, UA 1.015 1 - 1.03 [facility] Urobilinogen, UA 0.2 0.2 - 12 mg/dL [facility] C Throaton 10-08-2024 C Throat Normal throat justine isolated No pathogens isolated Normal [facility] Comment on above: Performed By: #### [id number] ####[facility] (DEFAULT)[address] [place] [address] Coding Summaryon 10-08-2024 Coding Summary HTMLBase 64 GqnnqzeoZTt8iPv+PGhlYWQ +QG4IQXYdY26knFQueG8iL8 NMTElOSywgQVBQTElOSyIgb kDnDZ0jyWFcDROn IC8+SO8bZEFiBocrwEEeb1T 8oCD4Z21vag9kVNdecYK9TQ MnGzQpyqunz1tuzEy1QElnT mluOyBt DGWuiZ86ZXY2fL64My80nOF dlSZdr9qdmVk7OkEkQBNdTH P4eOmeJNgsa9OcMIMfR75er BYos7E3 RVCdnYsmeDXrFdNltNX8wR7 hUKcyidifn7zzuxgwHbj4pc 20qEYcv4M1cIR3V5KnbeL6A GJvbGQg KypjyXVDhC7jruckc0etnbw kSiMaNOXcBLa6WMk1AWRwbR ypNsUpGJ54ESJ9AJWpnbXgJ 2FsLWFs jDfkOeH5u9D7Sf8IZ5HWUwi uW9CMKXEEMWnnsNX+PC90cj 25F5UmForaDll0NFUnDLL9b HZ9eH4t PYRbFImhy5M6uAL7X2TjkpY yuu6oa5nrSFMsMSbhD13naZ Vah4R2RKSgyWX1TUYlwKyoF iBzaG93 Oyc+XGUndBhur4LsEejdg8x ib7bkxWd3XhibYJTikeIcyG xbECX6e3RjTv5jNWQubCY9e VF5xA6b DtZfLoB4BIupM522YrHvlEJ bCpwzH72qO6PodKV+PHRyPj p7MNIskGlcVT7iL8SrLQSar mctbGVm bCulLO1hWKKzpranIOVchX9 jUOZdX3p8BgJxQpM9ILpyC3 KoDOFeityhGt01uU5wNoXzM kY8WXxs P2LzwfD6KVBnvLUmHYofASP 3K72ez1E1KNWrHNDrIUG4eG N7tF2anBdyerabjHZryHwbg mVydGlj GBvbGLduA057UWSqwVreGvB vZGluZyBEYXRlOiAgMDIvMD MvMjAyNTwvdGQ+AHQlPDI8p WxlPSAn hTTnZMulSe8bxDwnnYklDT8 pPFHpqwcdHSDdtG2iKPUthX LhvGqhMW2vTWZounlfb917M iAxMHB0 GZRowNTnC0JjzQ4wRjJfSHQ wOXJiX2SqsDDaWLzsR095AD knLqR2MSMrnqQyY7PvWELmv WduOiB0 i6H6Kj2Xj4EiaiqjG4SeuAT zQmOxWvxuWDi9Q2GdExxyyT I+DT09FYFcCH17BVz9LJR0z WxlPSdi AUEmN3LluL2pDvQhWRMiOCC kOyc+PHRhYmxlIHdpZHRoPS sbUGEqBkNcfGccJV1xGa6lE GVyLWNv cEojlLEfXuJeh6qqEUBaQSw hID5ryYyqQ8YazCK3PCXig0 l8Gu27U66aP9JufQE+PGNvb FQ1uIE1 wS2yLdKtPyQ5ODydN898JwD aoUSlMdvke0pkz9hhdVr2Nf E9NPMzsqCtbNbkQLU5y7GpI p55O29u IHdpZHRoPSIxNSUiIHZhbGl qzy2jcQ2xIl4+KRRfdUV8jE F5vU9eSrScIpG3SGiaJ882O nRvcCIv Mhpan1wus3oswBi0UkAoYWU eeqFusKyvHMV2x8ZfJx55P6 MbiMydg9GfFdz5bg12vOZar 7S2aNZ9 M2LzGTDtsbdetVWidLzlSB5 wTICminuqLOEgjN5sXTRnK9 f0AdYhUuV8ALiiQ1RkyfL9K GJvbGQg DSRydPEUxU0yuxbgq4qzwke nTzMvDQFvWYj8LJo5XBQpmV bjZcQfKDQ6BjL2MWH3yCPms Q1pcKhc julhuK7oXkl+LEZ4vYEkjXD PBO4iLagneOU+WBHvBHZ5oP ydWAzmEZFtqU4oSPSsU8j2L iAwLjA1 LVmnV8XtsoH1GHDrwAEoGUZ waDYYgM3pfyrpg3lbtapcQj MlVGMuLXc0DPc2DIHuyNqxD iBsZWZ0 DcA3QZC7eUTekX1reDtegyh pbO3dTmw+XiinjLsfKKG5VZ x3P0QmWaa4PVTmvRsaZI0ai GFkZGlu Ht4ghWzndFdwUT8bHIBenmn zv171MgSfu6kfPUYgjQVyEF boUZN9X83is2R6CPUkDAUqB CO0yEK6 nD3azEfcbvlnrDGwoJponaD smSazYRteVGxhV199ARMxeM utKbGnWXm5T7BiUks0EJWmv XloWG8z wBEpMDnrVo5itBpwhOhhOX0 tIUIfedmgc010PyUlg7ziEO LetNQuNGspXAA8S20pf2C4R CMwMDAw MTQ8qYF6fF0xvXpjysjajUF mdDsgdmVydGljYWwtYWxpZ2 57HWZpmXtcMwPidVz9D9GtW uw6OIJd fJwuDR4uuJTfEOkxSq1onRx peTkcZU3iNUJsrpmow953Pe Fua1oiIFGwuHXqGMitLKD9G 02rv0J9 LKWjQSIbNUK5jDH4yX6uyHx nbjogbGVmdDsgdmVydGljYW lbTGtdD892CTIhnXnqGrSrl GllbnQg DAojBYb5L4FfYnemqYZ+PC9 2MVIeRL72gKYiyUEvz2nxrI r8SwPqXIBcFSK1kVbaGOvud 3JkZXIt K16vjZIvn3E3EHJlcIvsdBZ rYdSbbFL5vA6fXYbuyxspt0 seubfsAvdag6oxjp10xN50P 29sIHdp ZHRoPSIzMCUiIHZhbGlnbj0 qcN6qVb8+KBWamAG8sPX8dJ 1iHVCzEsQ5DJotE608UsReh CIvPjxj v5xpf5tgjRa7YvR2NDNcbiA swEucPMF8p6BvCy65I80lEF dpZHRoPSIyMCUiIHZhbGlnb u2bgL3t Ii8+WOEvwVA3zWT0tV2lOpU bHwW0ZBzgV835QfAtpOHuNi gkT22cG4KqwON+ZHFpHsg8D CBzdHls BQ0fvLEsRSzqDv2gBJN1QaZ mJiLiOQirB9SlCEIrkzjkph jmjVJ6XZXcPTQdeV29Zh2ei DogMTBw uNWCzI3vjuxlp6zmrwwzStL oKBXsMZa3SSe4UIPyxWguOi AyBIV8WnJ1BQA3hCMlzE2ua Glnbjog uD9wQ4UhFXUdabuuZo47aI6 rTgYgBlB1JSpyKnt+Q1JBV0 ZPUkQsIEJSRUFOTkUgTUlDS EVMTEU8 Y1RoHgs4PPLksYsyGT3snQJ sEVyyFq7zlJfdzVteGL5lIG IllbggVRVkgC8hIQWtaTBqd GloUC3t PLFbcfgot425HiAgIQE6RUA koWTjE9DcuQ4uUoMhACHxGR RyG0ZzzXQhOLijL775UQphX lM2KXPj peAyF8UkRELzxIaoHvB0d9Q 6Nz7vYe2hJQ5eXDx0JF05QC 21oGDts2S3cYM3U1QtXQFyo mctcmln wOI6QYUoPNBuxH49yLWxPFk kVy2aq9V0c119BNJyUYOmkI 60Fg4ojShnNQFtyPJQpU1ie djoc0jj yjkdGbYhZVBfMVp3TGv4VUX ptHvdQsDsJMY2YtO2AWS9eS ZhyF1ugPdmxuhdvO0qDmy+M jYgWWVh alK2O3PpFxk5FLAseYlrRD9 xwZDaQDfgEo8paJstiBziSB 4rIFKwmvskJLUkvS6uYNNyk HRvbTog DI0qHUPkqblxb527GdZiGFL 2CWHmqPWzB6TggM5yWdLlWO OaPPYbY2XfrZGqLJbjZ133R GxlZnQ7 ZUMofqTtN4HeTMCjgZhmFmE 5l2C7Yv6OKA5VMZL5L2AqMr j6PTDidFljDT7mgIQiGIxvH p6fuZyh eSneKM4uHFUhsseyOTPydF9 fKBXnxNSibIydTL3dUKWbgh xor349ZbXzJGV1PMUtaVXhY 1OnsM6c JwVaTBMiKXKhW2DeqUDhOGk uM758EErgVqD9ELVvykJgM2 FtVOUznJkhFvV6v3B1Aw1YB DwvdGQ+ DL08ay32D1YvBdxiRuo4QZN wXVM6tPK6bT2aOIXrCJaoc2 A6nBQ1Z7XsmcSayc9au9qvT XBzZTog X82czVYov2Q9LKOhmLL7PUP diYpzTvZlsT80Jky+PGNvbG cit4QbBxcwi1xmv0ynrYt4E jMwJSIg yhJgvRzkTLC0v4SrXr03U43 sIHdpZHRoPSIzMCUiIHZhbG vixd5vxL1pLr3+GMZimDX2g HB2qI2v KtRkZuN7BJpmZ380SnDbfID zBycjc3dup9fgnOc5LiNlJM EkifQpjSvqMMF8k3MtEw89E 2NvbGdy u5IgKtc5ud70xRYgt5V3qUN 1R4ErEDFucaqvyWGpkDviWM 5pJHGjvbmzDFPzeJ5mHLBwX 1e7KgPc ItD4SWikH8YycoS8ZJHdiAR aZSCgcCKZbV5ranpip1pkja kzRjCrOFSkFXt6KOf2HVHeb WduOiBs FZV7MdM3MXO8zKThgS3zvSe dcqiulQ7pFhu+ITf7u3yrfC VpSR3mqBU7TI38FJ37gWZrd 0I7nGD0 T1MwTZYbhrukwotqlNE4UDD nJMZueO71Zt4ohPguUe2gOK YeEOD1UBHoaPPuW1IjfP4dS iAjMDAw ZOYeJ6SrsWYnOMwqF183LPc hWeP9FBNfmkIkD5VaGJEljM hpTnK7h8Z3Wb3VXT12OI87E G85eXBd i6E3gRT7Z2VoAWOomdaeswv hqLM4IJVpOIPtpA59Zb1jqK dzOz0kBVYzCLX8NSLmqTRsM 8UbjO2a ZaXmVFTqMITkP0XleJUmDWf eK362SVbsUfF0GEIpgyCaN8 RsXIYzeUueRwT4z0A9Ha8ZR o86JR07 TL15yDCpn5R5kID7F3EnMLB srwdrgvxceUT7YYPjWMUjqQ 29Vy2dzUhnJy2aYKQjSXC5R FRpbWVz W4UvyO2dPhHjMDZjZJIhM1Z ubWVdRUtfG222DHnuGiU6YU LgplIeB4ZyHIPdcLcyRuG3h 5R0Pp0U BDqkyzy0J2HcYgdkuXK+PC9 5DRYkWU64vFNcwSSfo4dsqY o3UeYlMIZbFML7pDfdIZako 3JkZXIt Y29 (more content not included)... Normal [facility] POCT Rapid Strepon S. pyogenes Ag IA Ql (Unsp spec) Negative Invalid Interpretation Code [facility] Comment on above: Performed By: #### [id number] ####[facility] (DEFAULT)[address] [place] [address] C Throaton 09-26-2024 C Throat Normal throat justine isolated No pathogens isolated Normal [facility] Comment on above: Performed By: #### [id number] #### [facility] (DEFAULT) [address] [place] [address] Coding Summaryon 09-26-2024 Coding Summary HTMLBase 64 WgwpjcudSSm5sTe+PGhlYWQ +VG0DBSIuU88eoOQrdS1pK1 NMTElOSywgQVBQTElOSyIgb cImAX6zzERyOVFr IC8+HJ7gCYLtNysiwRDev6T 8vZY3U72nxx8mWXcysYO7MO VxUtWvqhhcs8tshZf5GKwzU mluOyBt CBCjyS80AQK1lF11Jn34qQL thAEbd2prbBo0MoFaBESxKB G3jNcoCOkfj3DzJZXaX65kv ZZnm4I1 RYKylAyqkKRfZvPvlIF0kB2 sXDqkhfgys6acepivVqp4er 64pAAlh6Q2aFJ5H8TkbyH6E GJvbGQg IwazySPOxV4pzevhw1zkwsm uTkDzMNZxLHv9FBr8CYFdwK bbJrZsXG15DFR7JGVkpoCqZ 2FsLWFs yVksKjD8r4R3Tg9XY7OHQco mV3TNJQKCXVkwlWB+PC90cj 47V0FtZnciPxd5GRKsGKJ1z LU5nQ1c IWPfUNigh7O9cNN0R0XakaK eet4kp3jqLCVyORqgD95awX Vng1Q5NOKfuFX7IIGjuHcfJ iBzaG93 Oyc+VXMqeCkib7OiHjulz4p an7xrdNu2NesbSWArotYlkD zkXZY4d0YqFy6xFNQrgEN5m CF8tP5j YxHwYmO2JAsqP744MhNeaDZ iNwudG22pS5OqsIH+PHRyPj l7EMIcrAoeIG6bI0NtWLXlp mctbGVm oIdoWY1bMOEqfbhvNXFgwT9 bRCGrP7t2BmRtSaY9AUlzV3 VrBTDvrayhAn16vA2fGbQaQ bU0YUvl B5GbbgK5DKScpSUsXObjWJX 7A12ce2X9ZKRsDZYtJJS6pE L4xZ3znGhvypvkwHEqhSpgu mVydGlj YSmvLYtcT480TOAqbIpzFyD vZGluZyBEYXRlOiAgMDEvMj IvMjAyNTwvdGQ+YNPuHDA8x WxlPSAn eCYdPEejTq0xmTunuZunUD0 sZJSoftahVJArdK9kYSQdsN RogBtjYQ9mPSUqcreaa279A iAxMHB0 QLZftKRjM4GtuA4vJoHkDUS tJYQyD9ShvMSxEDpsU245EH ryPnC4YZJjdcCsB8KwLXCqt WduOiB0 t6W1Ic4Md9JohuwkJ1YmiAU tAaAaSjitAVz1R4EpYjmwkG I+OU85JALrYS21SXc2AWX0v WxlPSdi GJMpF4DlsQ1vAwBxGPUvGXR kOyc+PHRhYmxlIHdpZHRoPS hsAVGnBxPvpOlmAC0gQo3hJ GVyLWNv bUnryBTpVyBzz5tbUJLiNDm yWW1vdNcgH3SsvYR7LPBve1 u7Ts21A78uD8FhwZX+PGNvb XV9eEB6 gT1dAhVmQrJ4SUggV325CpS sxRNaEuayr0fmj1ilhUl5Px V9TIWjryDtlIvmPJS8s5WzE s58X00p IHdpZHRoPSIxNSUiIHZhbGl oqg4mzH4xGp4+OANpdGH1eC N8nH2jOjJnWlK1ZMtdG850K nRvcCIv Rusgu6qwf1oxrGt1TiLiKKA vpgTnwYghSJQ2f3IiUs75J8 SmaMtaz0BuGcn7ia52tIRew 5Y2mCY9 P2GkXFRiuwzjmOTbuOdfOY4 gUWKztskxQAAnhY1eGKHbG5 x6LgSqIoP7VUzrJ0TeciT9Z GJvbGQg BZSoxJZGtS1ldllzx7cdaou yLxLsSBQfFOz9JDh3ULIydD svDoRdXQK3HlZ4MBJ2gMZge W4dpIdz mjafaB8vJss+VIL5aJXrkTT IIH3aOzcghKR+QAGjZDV0bF tnGStzGNEftP9kXUJuN6e4L iAwLjA1 BVvwA4GdpmM9FTRigAIdBUI umSKJqS7smknvn7oinucnWq WsYECaIWk2GAd9GGFhfGmoT iBsZWZ0 ViE2ILI0eNNscZ9jcAussmc ayA7eCua+TmyjmMobDJV1TA b4K0DzRlm1HFHxxDmkUK9so GFkZGlu Zi6hrMajqZqwZE2qBGQvvgh cq741YjKcw8rdBNLdwDBzQF pvRSA3C18kc3I4LHWgSFVzG OY3oZS5 kL4ewTfcommrtROhtUrkovV kmXnyWLvwXUlvN860SHJzvM krRaDwYGb4O7AaRua2UBIce JrhHQ2e cEYcUOiwCo0spZkbyMoxXR3 rRFOecxeqg243UfFiw0ufUJ ZzmRLeWHoaAJI5K36xu0G3D CMwMDAw XAB2aCE6lP8xiVrzexxxpXJ mdDsgdmVydGljYWwtYWxpZ2 40EGQpcNuuSaXbqNn8C2FnR dc2BUYb kJyvPT1tlFZjIPoeFe0duXl shEjzML3dMKCjvlkbh100Jb Tex2bpDZQtfKTrQBtoRHI6N 77kt8J9 QRVsIYVgLXY4iOC1qP6ntJf nbjogbGVmdDsgdmVydGljYW uqDFiiO851RSSekZsfMmNzr GllbnQg LVpzNYv5G1QnFmsoqJF+PC9 9SNOlJA67nDZenVKnr6kzeW j7QmLsWJCjVXD3eUjmMApxv 3JkZXIt Z97shOYzn9C7ASWxfErbzSH gGnClyTE2yG4tEJofpjjct8 mpiieiWwubj3fkxw69cM79B 29sIHdp ZHRoPSIzMCUiIHZhbGlnbj0 ocG5rXy7+UHZilBX6eFO2qY 5dLFChXqS9FTweZ053UhQts CIvPjxj e5wmp7yamAo8LfZ9PNPsusQ orKxdOKK7y3PnKf63T19dLY dpZHRoPSIyMCUiIHZhbGlnb g5plI7m Ii8+FNAcbPF1pWW9aU9hDwQ pYnS6JSqfA620QlPbhFGoJq naY25vN0CtdIM+WRMiKfs5M CBzdHls TG9hbPFsVIrsAq7mYBJ5GtQ lHqSrROxpX6DrYEHkadfhzf qhhTG0YTAeLKPktO44Pn1es DogMTBw cQKJeD4kllqwz9bbstusOnL qXAMmQRp2WDo9ECTqgMezAa GqALL5HyJ9XHD9jGYzbF6hs Glnbjog rS0jI4CkQKZexsvyJl87hM8 cQjFiYoT9IQinBwx+Q1JBV0 ZPUkQsIEJSRUFOTkUgTUlDS EVMTEU8 B9DcDws8ABMhxOhgNV2ldXI kPHpbHg8zdMfxeUfnDN5bFW UmxkasJLJqmD0xHBGrjTWvs WliXC4n YVXibwrul673XsAnSNI0ERL vxMPkC4WtlC3fQpTrNAZaEQ TyG8IqgAQaMKotL288CWvgC jD4HFHi ktDlY1RkHPHhbKdyRqH3b1N 6Mx9dXa2nGR4oSWe9CG49OZ 87wQVct4J2zVY1W4DrCVPtx mctcmln uTY9BGRjGFMghJ67rIYrRYw eIv6ie2I7t424HGYnTJGdfI 74Mw3arJpkMGXatXTMbS8fc stnn3aa ofxsGdYjWTOrPYx8AAm2ZLB blKqpVjIwYPS7LfX8FXK9vU WlpY2pcYcyjusbvL4zRfo+M jYgWWVh lzM0I2NnGbb9GDIexXalSP0 wuRGrETncIt7sqIqdoTnuVU 8pJBNrksnnPXFgwZ2mDEGrj HRvbTog UZ3fOOTeyooht901QrPbJLE 8JYNoyKMkX2ZqpN8gYaJyJM HcIXJhG0GmlWImHXtvO703F GxlZnQ7 GFLammEsC6GbZZPjuMruHrQ 5f0Z6No1LBJ0UMAA1G7PmCt g0LHHycCpeJX5orSZmIBdxZ n4mnJlf gHvwPM6dSPSonrvqXOOeaY4 tQBSizUVqkInuXJ1fGQGicy eox442PjAjUQI7IITshFZzB 2FpiU5a AdSlBRThLVJqN8EwpWAuRJc wL419KEqwLyK1LNPhwyKhO6 EkITLygTbmAkF7n8G3Ns4SO DwvdGQ+ VN90hj94N4HoBeoqBaj4QFS iVIA7fKG5pL4aEHUiSRghn8 B8aQD9B7RjowUhmg4nf1gdZ XBzZTog Z32fgLEmp7A9ZEFhkQZ2LXU loLmdJwHypB51Yfq+PGNvbG ine0TcBdmuw2hvp3ebjGi2Y jMwJSIg zqAdkSicSTM5g3KkSx24Y34 sIHdpZHRoPSIzMCUiIHZhbG pmky6bmR7vDn8+GELqxLL3t CC5eJ3q NyJrJeY9XYkyE188PrYylJW oTieww1amb9tdmDn1XqPiHO KcdlVllWdwPES7l3ZgZc25Y 2NvbGdy v2MqRdc1jn50iDUrr9C2fDD 1U4MwFUYastrmoXTrsQlaAV 8qYRJnanstPQQskQ5wKGBbP 9b0PcVq MrF9OGyqD0UtqjE8DIXxbUD gZXNyySQJsB3jfwiso1rlmj otIwZwDHRdLCw1YZr4SXHhd WduOiBs KZH3DoJ7TMZ9eGPfxE1ulDq qauhfmO9pUza+RTk3c0rebS MjFK6nbOX5UC46SD53dBIov 7P7fVU3 K4UaDUNbuzcuzxmbcLQ8VHB jQYJrpM77Pt3fnWiaSp5vJW UfWIZ4EHXvfTGnH3AjuP6oY iAjMDAw KDLyY9ZjpWRlVPcpY516TAp kEfC3CKNianNqD8PwREVelK ruHeR9d7N1Qc1HMK67CN95S N63pYDz e1L9dWX5P4AaXZNjbblgyfj dxXZ6LEYeMDBzdK07Ek7yyN dmPp0kOHTyURF9YTXvtDQjW 3ChqP2r FxZwENBlXNKzI3PtcVLsCLg pJ089KUpnJrJ1CHCtgeJbB2 YtDGWzqVzbErC5m9R8Yv3NV s36QI17 SS32sVZnk6N8kKB9S1TnJXB mwrgrixtqvCQ6TLWrQWSsaK 60Gk1hvAqnUw0kDQKiEWJ1K FRpbWVz K6WdbU2vQxKkLGHyFNWyR1T olOXsZQzwT694GOovQoT6OQ BumrCrS9UpNFLjeKegKeF3a 1O3Dz8F AShtxnw8I0PgBcwjmJA+PC9 2QHOqFB07kGUfnSJqa8tyuZ w5DoBmYSMtSRX5pOguZCuqz 3JkZXIt Y29 (more content not included)... Normal [facility] ED Clinical Summaryon 2024 ED Clinical Summary [facility] ? Urgent Care [address] [place], [place] [id number] Clinical Summary PERSON INFORMATION Name: SHERLY ASTUDILLO Age: 24 Years Sex: FEMALE : 2000 MRN: Acct#: Visit Reason: UC - Throat Problem; THROAT PROBLEM LT SIDE Arrival: 09/24/2024 12:32:36 Discharge: 09/24/2024 13:30:00 LOS: 000 00:58 Check In: 09/24/2024 12:32:36 Checkout: 09/24/2024 13:30:00 Address: [address] [place] [address] PCP: Radha Gomez MD PROVIDER INFORMATION Provider Role Assigned Unassigned Michaela Early MA ED Nurse 09/24/2024 12:34:37 Larissa Cobb WILDERNESS GUIDE ED PA 09/24/2024 12:34:58 VITALS INFORMATION Vital Sign Triage Latest Temperature Tympanic Temperature Temporal Artery Pulse Rate O2 Sat 100 % 100 % Respiratory Rate Blood Pressure /77 mmHg /77 mmHg MEDICAL INFORMATION Medications Given: Allergy Information: No Known Medication Allergies PHYSICIAN DOCUMENTATION DISCHARGE INFORMATION: Discharge Disposition: Home Discharge Location: Home PATIENT EDUCATION INFORMATION Instructions: Pharyngitis; Oral Thrush, Adult Follow-Up: With: Address: When: Jason MCNEAL, Radha Santo [address] [place] [address] [phone] In 3 days Comments: You have been [...] next 3-5 days, also f/u with your SCREEN PRINT OPERATOR, for reevaluation, return to the emergency department/urgent [...] 1:Oral sharon; 2:Pharyngitis Patient Understands: Comment: Normal [facility] ED Patient Summaryon 025 ED Patient Summary [facility] ? Urgent Care [address] [place] [id number] PATIENT DISCHARGE INSTRUCTIONS Patient Information Name: SHERLY ASTUDILLO Age: 24 Years Date of : 2000 Reason For Visit: UC - Throat Problem; THROAT PROBLEM LT SIDE Arrival Time: 09/24/2024 12:32:36 Primary Care Physician: Radha Gomez MD Attending Physician: Larissa Cobb Comment: Patient Education With: Address: When: Radha Gomez MD [address] [place] [id number] In 3 days Comments: You have been [...] next 3-5 days, also f/u with your SCREEN PRINT OPERATOR, for reevaluation, return to the emergency department/urgent [...] these instructions at home: Medicines ? Take [id number] and prescription medicines only as told by [...] cool-mist humidi (more content not included)... Normal [facility] POCT Rapid Strepon 5 S. pyogenes Ag IA Ql (Unsp spec) Negative Invalid Interpretation Code [facility] Comment on above: Performed By: #### [id number] #### [facility] (DEFAULT) [address] [place] [id number] Ur[facility] Care [facility] 025 Urgent Care Record [facility] ? Urgent Care [address] [place] [address] [id number] PATIENT DISCHARGE INSTRUCTIONS Patient Information Name: SHERLY ASTUDILLO Age: 24 Years Date of : 2000 Reason For Visit: UC - Throat Problem; THROAT PROBLEM LT SIDE Arrival Time: 09/24/2024 12:32:36 Primary Care Physician: Radha Gomez MD Attending Physician: Larissa Cobb Comment: Visit Diagnosis: Diagnoses This Visit Oral hsaron (B37.0) Pharyngitis (J02.9) UC - Throat Problem ([id number]) If you received any narcotics, sedation, or [...] documents With: Address: When: Radha Gomez MD [address] [place] [address] [id number] In 3 days Comments: You have been [...] next 3-5 days, also f/u with your SCREEN PRINT OPERATOR, for reevaluation, return to the emergency department/urgent [...] and treatment you received today in the [facility] were for an urgent problem and are not intended as complete care. It is important for you to follow up with a doctor, nurse practitioner, or physician?s teachers' assistant for ongoing care. If your symptoms [...] so we can reach you if necessary. [facility] has provided you with a complete list of medications post discharge. Please inform your conservation enforcement officer/provider of your visit and for further instruction on these medications. Any specific questions regarding your chronic medications and dosages should be discussed with your primary care physician(s) and/or pharmacist. New Medications [facility] [id number], [address] [place], [place] [id number], [phone] clotrimazole (clotrimazole 10 mg oral lozenge) 1 [...] it is (more content not included)... Normal [facility] Telephone Encounteron 2024 Blender Authentication Interface Message Text Called patient lmom to call office for sooner appt... we have them available. Thank you Normal [facility] DRUG SCREEN RAPID (URINE )on 09-10-2024 [...] Healthcare PHENCYCLIDINE SCREEN URINE Negative NEGATIVE [facility] TRICYCLIC ANTIDEPRESSANT URINE Negative NEGATIVE [facility] US OB 14+ WEEKS [...] GDLNon AGE GDLN ACOG TESTING Note . [facility] Comment on above: TESTS RESULT FLAG UN ITS REF RANGE LAB Clinician Provided Cytology Information Source.............Cervix Other.............. No. of containers..01 ThinPrep Vial Age Algo ACOG Crystal... FLAG LEGEND: L-Low Normal,H-High Normal,LL-Alert Low,HH-Alert High <-Panic Low,>-Panic High,A-Abnormal,AA-Critical Abnormal Performed at: 01 =G [address] [address] Melissa García MD, IGP, RFX APTIMA HPV ASCU Note . [facility] Comment on above: TESTS RESULT FLAG UN ITS REF RANGE LAB DIAGNOSIS: 02 NEGATIVE FOR INTRAEPITHELIAL LESION OR MALIGNANCY. THIS SPECIMEN WAS RESCREENED PART OF OUR COMPOSITION WORKER PROGRAM. Specimen adequacy: 02 Satisfactory for evaluation. No endocervical component is identified. An endocervical component is not commonly seen in the patient. Performed by: 02 Emilie Frost, Glass Cylinder Flanger ([facility]) QC reviewed by: 02 Lauren Ness, Supervisory Glass Cylinder Flanger ([facility]) . 02 Note: Note 02 The [...] <-Panic Low,>-Panic High,A-Abnormal,AA-Critical Abnormal Performed at: [address] [id number] Melissa García MD, Performed at: = - [facility] [address] [id number] Facilities Mechanical Design Engineer: Melissa García MD, Phone: [phone] Performed at: [facility] [address] [id number] Facilities Mechanical Design Engineer: Melissa García MD, Phone: [phone] SPATULA-ALONE CERVIX [facility] RECURRENT VAGINITIS (HTRX)on 08-15-2024 ATOPOBIUM VAGINAE 0 [facility] ATOPOBIUM VAGINAE Not detected [facility] BVAB 2,3 (BACTERIAL VAGINOSIS ASSOCIATED BACTERIA 2, 3); MOBILUNCUS SPP 0 [facility] BVAB 2,3 (BACTERIAL VAGINOSIS ASSOCIATED BACTERIA 2, 3); MOBILUNCUS SPP Not detected [facility] SHARON ALBICANS, PARAPSILOSIS, TROPICALIS 0 [facility] SHARON ALBICANS, PARAPSILOSIS, TROPICALIS Not detected [facility] SHARON GLABRATA 0 [facility] SHARON GLABRATA Not detected [facility] SHARON KRUSEI 0 [facility] SHARON KRUSEI Not detected [facility] CHLAMYDIA TRACHOMATIS 0 [facility] CHLAMYDIA TRACHOMATIS Not detected [facility] GARDNERELLA VAGINALIS 29.341 Abnormal [facility] GARDNERELLA VAGINALIS Detected Abnormal [facility] Interpretation and review of laboratory results Abnormal [facility] MEGASPHAERA (TYPES 1, 2) 0 [facility] MEGASPHAERA (TYPES 1, 2) Not detected [facility] MYCOPLASMA GENITALIUM 0 [facility] MYCOPLASMA GENITALIUM Not detected [facility] NEISSERIA GONORRHOEAE 0 [facility] NEISSERIA GONORRHOEAE Not detected [facility] TRICHOMONAS VAGINALIS 0 [facility] TRICHOMONAS VAGINALIS Not detected [facility] GLUCOSE TOLERANCE 3 HOURon 1 10-11-2023 GLUCOSE TOLERANCE 3 HOUR mg/dL [facility] Comment on above: GLU FAST 83 (<95) Co l: 08/10/24 0708 GLU 1HR 131 (<180) Col: 08/10/24 0812 GLU 2HR 124 (<155) Col: 08/10/24 0912 GLU 3HR 95 (<140) Col: 08/10/24 1013 [facility] Urinalysis macro (dipstick) panel (U)on 08-08-2024 Bilirubin, UA Negative Negative - 4(70) +++ mg/dL [facility] Blood, UA Negative Negative - 50 Osvaldo/mcL [facility] Clarity, UA Clear [facility] Color, UA Yellow [facility] Glucose, UA Negative Negative - 2000(110) ++++ mg/dL [facility] Interpretation and review of laboratory results Normal [facility] Ketones, UA Negative Negative - 160(16) ++++ mg/dL [facility] Leukocytes, UA Negative Negative - 500+++ Edison/mcL [facility] Nitrite, UA Negative Negative - Positive [facility] pH, UA 5.5 5 - 9 [facility] Protein, UA Negative Negative - 1999(20) ++++ mg/dL [facility] Spec Grav, UA 1.02 1 - 1.03 [facility] Urobilinogen, UA 1.0 0.2 - 12 mg/dL [facility] GLUCOSE 1 HOURon 07-31-2024 Glucose [Mass/Vol] 132 mg/dL High NINF - 13 0 mg/dL [facility] Interpretation and review of laboratory results Abnormal [facility] Coding Summaryon 07-16-2024 Coding Summary HTMLBase 64 CvignygeEKm5dXb+PGhlYWQ +MU0JZFFjK79bqBIbdF9dF5 NMTElOSywgQVBQTElOSyIgb gLxHV7haTOaBLHj IC8+BS6pRLZfCzydpBVkh3R 9oXL1T71bzc1iRXvwcQW0FW NjXaBvivxtc4kejJn9CMpxY mluOyBt GPGqhM11PHD9iT39Cr92jNI kjZHzx4rjrRv7MoOoIDVeVX F6qZbwLAfem1YgESBgG16ku MWse7O1 JGMcbWbxkPFxDkAjkKL7vY0 wWAuqzxbsl0vnanbjOji5nu 39iUEmj6C7oQY1I4KcetD0X GJvbGQg IsbwhUNVhH4tfwayj3ueuvr aWlKxIRCkWAj1KLa3FLRejX wrIfAwJU95JXI5RSQvbrQrA 2FsLWFs qPtoFzZ9x2X4Ua9SH2UTVks yB8AGHEYRGYyezNH+PC90cj 33A4CxXldwNfy0RZGoQWS3t ME6pO9o KQDsAKxdt8S5mQE8G6CkabJ cdk1ek6czSBEgOFrpA60xxA Cml6J0WRTufAV1REAonIbyG iBzaG93 Oyc+EEEnkBfbh0JlEatet4b jz9djnNz6LmyjLEBppfQwrF jeSIQ0v5PuPk3qHMIuySR9e PY7fZ9d KfMjMoG1JEdpS073QvXyeUW xQalrY42xF7CumXI+PHRyPj l3QHRruKmpSV6tM3QuDIKij mctbGVm mGqnVG0tUBEvlbunJQTeyH8 uOACoF8d7EnUjAsD3JYejO7 OvNDBiamllAb34rJ1hWmYiB aS1EWgh A5HtmmY5TSBkrFDdTTuzIYU 4L54wr0K2RBXvIQKoUKN5iJ A9fE4vpOgtliscgKUjwNirb mVydGlj ZZlwJIksS384GKSchEbqZuL vZGluZyBEYXRlOiAgMTEvMT EvMjAyNDwvdGQ+TGStRQW9s WxlPSAn jLMcHDvzNs7vmDnceTcyPR4 jXEKgqlmmNLOcxE1ePGIuaK OziVvoVD4gYKDjgunok926G iAxMHB0 ZTCgaXLeF0OjnU7yFfYbOLC zNXFwY3MzvIEtKIllA668NB ekEoI7ENRtngMaS3CwDZRdq WduOiB0 u8R8Nz7In6InixxrA8BfeWN gFzIbIwgxEPi8F3OlQazzgJ I+UF38JALfMJ73ANw3JTQ1a WxlPSdi YPKrO7ZzpO4fZzFrNNDyJLL kOyc+PHRhYmxlIHdpZHRoPS ehKHPjWiKnpRidAB2yVx2dB GVyLWNv fQfeeZNdXsNrj3pvEFVlEPq mRZ1fhVxcC0AxyHO7UXUmx7 m4Yb09H25gV6HlvUO+PGNvb XF1dBT7 zQ3cZeKgQdE1LDjyT850NkH gvLTwPzzpw9ovy8kndWm4Vo N3HKYicsLhqHmbBQV8i6KmY f09C93u IHdpZHRoPSIxNSUiIHZhbGl ina7gdI9eKs4+VALmjGP1pQ W8aJ9cIeZxBtO4FJdpL042Q nRvcCIv Kovsy6lvi3gotOy0JxPtJZX zzrRjzCpwFTF3p3JsLq60X4 GauGjdt1KeJam1xz74lCJbm 4V9aOD3 V9WtRBTwvedxuCCndUsaOB7 dLCZiqcipWZGnjM9zXRTsP6 h1TvTmYoP6XCdeN8TssfV3R GJvbGQg FYLkmACXhS7hnkboj1tbgcy wKdRaBWQxGHj3UOj3MCJuzL kyUvMoYXM9OwP9HWB6iPJof J0boBpf gzbrmS9jVwn+JIN3vTHhzWI RAV5fYrkdwZZ+RTInWKQ5tK qsTRfhDJDbxV1mMMGlY0i8G iAwLjA1 DSceF4XpskE0OXSgvWHfOTA xlPUXzE0uzolcw8furnhzQr EmMPIuWJq7YFu5WKSexVtdO iBsZWZ0 IsM5CCF8cVMjaW8rfCbkrye anQ8fBpn+CcbyjAhpINF0ZG l2T5TkTos9YYRiiPgqGK8bv GFkZGlu Xl8vjQeafJkcWH7uIFCkiun ln506HjHgi2rkNWLnkTZuSC xuOQQ8P33dt9L4EFLwVJZdD KR2mGA3 oH7icCxfkcqvpKGjhOgyozV unKiqPUplKKtzP702OCKmhU jrDgVbPGh5T0YpJzn2LBShe NszQG8k hHRmDZmcMq6tuGzolXcnKE8 tPSQeezfwn408IuOep4tqOQ VcgCBvMZkoNUB4V58vt1O7Q CMwMDAw BZO8sZM8kK6qfQjpbrvhxSP mdDsgdmVydGljYWwtYWxpZ2 19JKSkdPadEcOmaXm7N7PlA oi4HZWw cEdpWD9wkQRjAIuwQe6ogRs ayJowQB2eRFZxnbwum219Vp Brs2crJCRjfWQfUBvoFME3L 92kn6C8 TTPoXBCwZRV8vUV9xU3ilAp nbjogbGVmdDsgdmVydGljYW dzYEknU144GQUfzYrhPpHbo GllbnQg XMydEFz6A9OwAnliuFG+PC9 9ZWVaCM15iERkeRRie9xkcV h8RfWfUBKwRVF5nRseNNdmw 3JkZXIt X93ebCFdd4O5MKAenMsxvBU aUnNzhJL4jL9bFDaqbqtbh0 sfdczwOuzyc9tnfl13lU56H 29sIHdp ZHRoPSIzMCUiIHZhbGlnbj0 ngG6jTv8+ZRVckAS9kTC7nS 3pEVLhPcN6AAazO250AmFxv CIvPjxj w7hab4utwLc7RqE5PMBxzlM riAtpCZU2p1OpWt34N69nQV dpZHRoPSIyMCUiIHZhbGlnb o1huQ1j Ii8+HNLyoFT5fQV6mF9kOgI cPnF8XLpuH611RgGnuXHmKk vuH67lE1DxkHN+LRKbRpc9B CBzdHls GF5feSWeCQugSz4hSCT6IcW sKbAuTSlxV7XwBFIotlvmcm kypVJ0FUXkKVUxnM41Qp0im DogMTBw lPWInK0kbmhtn5jmdaadUnL vODSlWZy9YTz9PHRknDpmCt SuWQW0KxD5YNK4rYCkfW0zo Glnbjog nE6bC2JsAGKixsnzOz24vK8 pCmWoJjH1NHaoHwv+Q1JBV0 ZPUkQsIEJSRUFOTkUgTUlDS EVMTEU8 G0PkBjz2RFFmeQhfRP9cbPO lZDmkNa3dhGwhtPrrIZ9vES SjrxbaBJGmvJ8dSMDlbGLce NplXB1r PVNwobibs829ZnHvELP4NEZ pqJQlY2WtuT6bPhFdUMDqHI JoW8RpjPYePSfqA673MGnhR oI7SUAq hvVxX7WvEZQllSdrSqB9k9H 8Cm5oQi4rSJ4hLSq0CN85YW 35dHPev1Y9aRP3X2RmTRPtt mctcmln jWM1PXOaQNZksP79pBBwFTq xSf8iu8A4d763QKFzLZMvkG 96Na2qwDlyWYUsrVWYiN9ef zpdr5fq rxhqIaMoVAGuODv4PVl2SGN ibAeoMhHoJHX3VrD0DRN8kL IgkS1qyRtroazrnX0kBwy+M jYgWWVh umP6X4VtQbv7THXigSndXG5 nzRBvXIclSh2piGpdnEymTZ 4eNUCsqkpgDOAmdA7uKVFae HRvbTog EF8zMXPhynszl237NtDgWYC 5KCRpzIUcZ1UkqN7kAdJtWO ItWSFhQ3NthGMrGLybX718U GxlZnQ7 DVGvxsIjE6ZxPCSnsNvvOaI 4d0G5Tj0ZLQ9QMOK5A5OvWr x1JQPvhMwuQO6ngJYiMZslD m4rvKhe kClcXX4dYWDlkzdxXWBncE7 uKIGvoPMzoKwbUW9fIOAugg but445QmTfCTY3VZRqsOBnA 2UzoQ0a YeRcDMOrJNIiE2LdqJOzUGe lE321JRdoSwH6KICqfuAaW9 NkGIIcjWgmGwG5t6J1Op8AJ DwvdGQ+ DY73pp11L5QqYdltMfk0ZYA zTJP4wLF1oN9bMBRiMFqdf8 G6xPF3E8UnbxScdp3ed1kqI XBzZTog H26xtFImb7P3JSBquFP9NTZ kdLkhSpRncV75Gxm+PGNvbG jsc2DmQkwcn6yiq8sikOd5B jMwJSIg snHeqTepHPV0m9WfGn73S55 sIHdpZHRoPSIzMCUiIHZhbG bpbg4djH3pUz5+LMGneIL8r CN4nP6l LbOmJeU0YZlxN235QsZpfNV xDshhf3tpc0cblMl2MqGzOT PpbuYrpSooWJU8d3NoNz15E 2NvbGdy t3DpDsj6dt41qTExl3K1fCK 4S1BwEBDobtnilKLlaMpwHF 9zKCPibhtmWTNhxM2sDWEgW 9m1CtVc AvJ5NOpwZ1XbmvX8JNFmvYU rQFBasVBAfZ3hvrfrg1graa ruFzZjVINmDEc7LTt6TCEjz WduOiBs VKW1AxZ9NSA4pUAgzT9adDh ogtgyoQ7oOso+GQq1k5zllA YrZF6ubQD5LY22BL66cWEns 6I2pPZ7 Y4JrIOCwltcvklzfgJR4VFH kAAWqnT73Dk7muTkdUm8sCY EzTGC6BQPkzRBvQ8EzyV8oC iAjMDAw ZDChU0ZojLKlUKoaI072BEc tYhK0OGBnpzOuM4PdHPJoiU emRbG4l2F4Do3UHW28XV34U C64kMUj z5I6mLQ8M5OoLHWqxromfvr ykAH6DDCqMVWdyG12Ys6cmG lcRy9tZVEnETB0ZJJxsGXnO 4BrmB3m DfKcLILoUFUwO8QzmCUcSJt uQ593QLqmUkF6QAQhfzPaQ6 OmSLGlaBpsZhQ5t8H2Ir4CL n81XW47 YV96mEUkj2Q7uZF4K6DxIIL phsalaysayQK4DFRcYMJkkP 53Zu9ahJvcLs2nVSYvETL6T FRpbWVz Y0XueJ1iCoKrVPSlEJJaY5I myOGqWCgcO368TWfcWrA9RG NmutUgH3YrQCLalCutVjV3f 3D9Xr4G WVglqrb2K2MfEoezxSH+PC9 0WGZaQG29cSMxkRDjj7tdyM d2TmPrXJXkCSA8rEhkDAsho 3JkZXIt Y29 (more content not included)... Normal [facility] Urinalysis macro (dipstick) panel (U)on 07-10-2024 Bilirubin, UA Negative Negative - 4(70) +++ mg/dL [facility] Blood, UA Negative Negative - 50 Osvaldo/mcL [facility] Clarity, UA Clear [facility] Color, UA Yellow [facility] Glucose, UA Negative Negative - 1999(110) ++++ mg/dL [facility] Interpretation and review of laboratory results Abnormal [facility] Ketones, UA Negative Negative - 160(16) ++++ mg/dL [facility] Leukocytes, UA Positive Negative - 500+++ Edison/mcL [facility] Comment on above: small Nitrite, UA Negative Negative - Positive [facility] pH, UA 7 5 - 9 [facility] Protein, UA Negative Negative - 1999(20) ++++ mg/dL [facility] Spec Grav, UA 1.025 1 - 1.03 [facility] Urobilinogen, UA 1.0 0.2 - 12 mg/dL [facility] ED Clinical Summaryon 2023 ED Clinical Summary [facility] ? Urgent Care [address] [place], [place] [id number] Clinical Summary PERSON INFORMATION Name: SHERLY ASTUDILLO Age: 24 Years Sex: FEMALE : 2000 MRN: Acct#: Visit Reason: Vaginal discharge; VAGINAL ITCHING/DISCHARGE Arrival: 07/05/2024 10:15:34 Discharge: 07/05/2024 10:59:00 LOS: 000 00:44 Check In: 07/05/2024 10:15:34 Checkout: 07/05/2024 10:59:00 Address: [address] [place], [place] [address] PCP: Radha Gomez MD PROVIDER INFORMATION Provider [...] Location: Home PATIENT EDUCATION INFORMATION Instructions: Vaginitis, [place]ie[place] Follow-Up: With: Address: When: Radha Gomez [address] [place], [place] [id number] [place] (1) Within 5 to 7 days With: Address: When: COLE ALONSO [address] [id number] Business (1) Within 1 to 2 days DIAGNOSIS: Vaginitis Patient Understands: Yes - Patient/family/caregive r verbalizes understanding of instructions given Comment: Normal [facility] ED Patient Summaryon 024 ED Patient Summary [facility] ? Urgent Care [address] [place] [address] PATIENT DISCHARGE INSTRUCTIONS Patient Information Name: SHERLY ASTUDILLO Age: 24 Years Date of : 2000 Reason For Visit: Vaginal discharge; VAGINAL ITCHING/DISCHARGE Arrival Time: 07/05/2024 10:15:34 Primary Care Physician: Radha Gomez MD Attending Physician: Spenser Fang Comment: Patient Education With: Address: When: Radha Gomez [address] [place] [id number] [place] (1) Within 5 to 7 days With: Address: When: COLE ALONSO [address] [phone] Business (1) Within 1 to 2 days [...] and use condoms. General instructions ? Take ddoh-ddq-rizvopy and prescription medicines only as told by [...] provider. Document Revised: 02/19/2021 Document Reviewed: 02/19/2021 [employer] Patient Education ? 2023 [employer] Medication Information: The exam and treatment you received today in the [facility] Emergency Department were for an urgent problem and are not intended as complete care. It is important for you to follow up with a doctor, nurse practitioner, or physician?s teachers' assistant for ongoing care. If your symptoms become worse or you do not improve as expected and you are unable to reach your usual health care provider, you should return to the Emergency Department, we are available 24 hours a day. For those (more content not included)... Normal [facility] Urgent Care Note- Provideron 07-05-2024 [...] History Medical history: Resolved Ankle fracture, left (41872719): Resolved. Ankle impingement syndrome (080115716): Resolved.. Surgical history: Cholecystectomy (22551801).. Family history: Anxiety Father Sister Diabetes mellitus [...] Comment: Gillian - 11/19/2023 09:Marisela Morfin RN 05/28/2024 Substance use: Current Type: Marijuana [...] doctor a (more content not included)... Normal [facility] Urgent Care [place] 024 Urgent Care Record [facility] ? Urgent Care [address] [place] [address] PATIENT DISCHARGE INSTRUCTIONS Patient Information Name: SHERLY ASTUDILLO Age: 24 Years Date of : 2000 Reason For Visit: Vaginal discharge; VAGINAL ITCHING/DISCHARGE Arrival Time: 07/05/2024 10:15:34 Primary Care Physician: Radha Gomez MD Attending Physician: Spenser Fang Comment: Visit Diagnosis: Diagnoses This Visit Vaginal discharge (616254442) Vaginitis (N76.0) If you received any narcotics, [...] documents With: Address: When: Radha Gomez [address] [place], [place] [phone] Business (1) Within 5 to 7 days With: Address: When: COLE ALONSO [address] [phone] Business (1) Within 1 to 2 days Medication Information: The exam and treatment you received today in the [facility] were for an urgent problem and are not intended as complete care. It is important for you to follow up with a doctor, nurse practitioner, or physician?s teachers' assistant for ongoing care. If your symptoms [...] so we can reach you if necessary. [facility] has provided you with a complete list of medications post discharge. Please inform your conservation enforcement officer/provider of your visit and for further instruction on these medications. Any specific questions regarding your chronic medications and dosages should be discussed with your primary care physician(s) and/or pharmacist. New Medications [facility] [id number], [address] [place], [place] [id number], [phone] terconazole topical (terconazole 0.4% vaginal cream) 1 [...] ? Eating food (more content not included)... [facility] ALL CBC WITH AUTO DIFFon BASOPHILS ABSOLUTE AUTO 0 [facility] Basophils/100 WBC (Bld) 0.3 % 0.2 - 2.0 % [facility] Eosinophils/100 WBC (Bld) 1.2 % 0.9 - 7.0 % [facility] Erythrocyte distribution width (RBC) [Ratio] 12.9 % 11.0 - 15.0 % [facility] Hematocrit (Bld) [Volume fraction] 40.3 % 36.0 - 48.0 % [facility] Hemoglobin (Bld) [Mass/Vol] 13.7 g/dL 12.0 - 16.0 g/dL [facility] IMMATURE GRANULOCYTES ABS AUTO 0.06 High [facility] Immature granulocytes/100 WBC (Bld) 0.5 % 0.0 - 0.5 % [facility] Interpretation and review of laboratory results Abnormal [facility] LYMPHOCYTES ABSOLUTE AUTO 2.5 [facility] Lymphocytes/100 WBC (Bld) 21.2 % 20.5 - 60.0 % [facility] MCH (RBC) [Entitic mass] 29 pg 26.7 - 34.0 pg [facility] MCHC (RBC) [Mass/Vol] 34 g/dL 29.9 - 35.2 g/dL [facility] MCV (RBC) [Entitic vol] 85.2 fL 81.0 - 99.0 fL [facility] MONOCYTES ABSOLUTE AUTO 0.4 [facility] Monocytes/100 WBC (Bld) 3.3 % 1.7 - 12.0 % [facility] NEUTROPHILS ABSOLUTE AUTO 8.7 High [facility] Neutrophils/100 WBC (Bld) 73.5 % 43.0 - 75.0 % [facility] Platelet mean volume (Bld) [Entitic vol] 9.5 fL 9.5 - 13.5 fL [facility] TBH EO # 0.1 [facility] PLT 378 [facility] RBC 4.73 [facility] WBC 11.8 High [facility] Outside Recordson 06-11-2024 Outside Records [id number] [facility] [id number]#[id number] [facility] Coding Summaryon 06-08-2024 Coding Summary HTMLBase 64 CshqydqyJXu7mOv+PGhlYWQ +TN2LWPYvP19zhOHgmX1gM0 NMTElOSywgQVBQTElOSyIgb kQaZQ8czUSzAZQn IC8+XY0xBYPxBswaiROnt2U 1bDS3U61vyo5yEDhsgRS4SL WtExTucbhyl8qzyVt9BSjiD mluOyBt AGWtpY48UKE8aO96Nj46eFK nfWAix3djqZp8ZlJsDODpLQ Y0sMzpSMhjm9MfCRLlH62ih UGza3T6 VUCrhMriwTWlBgYboIV4mM6 wNPnqfzcvs4vnrfssZej8sf 24vBXsj2K9tCV8U6TqziV7A GJvbGQg HuvhkBKZwE3bicctw2pfzeo nOeFxSJQwJXg4SRy4JPFybO zgZiMjJU56MFJ4GYEybqFpF 2FsLWFs iNthOqA4f7Y0Mz8WS0YNJgu aL5MDHSTIQUarrTK+PC90cj 15N2YcSyxiSan1QMHmIRG2e LF7iH6t KDYhNBocv0M1qVN4J6GsopH qoo1aw1mwEPJyCGcnH70rtV Wow3P6HHDpfCA7CDRobSkpY iBzaG93 Oyc+IJXwhUwms1RzFpncm4s ww7fdjQh9WwfsSHJbnsFahT fpZXX2h4KtId4wWBJczVS8x XX3vV8c MyDjXyL0THbiH772ZvJypTT eEikmD87lK6NerMW+PHRyPj l6VIYxpWuwOR5jW0XiDSXgs mctbGVm mUcrXG8vSCRganphKOOxfH5 iJWJoX3v3TlZuWzA3PPdnO1 KlXOBgggphYj19zV7eKyFhR kO9OQrn I0GxclD6YJLqzCAtHAanMKR 9U58ki1Y9GELzLMUsPRP4bF U7nL1umEssadzpuTNdeJstq mVydGlj SAjkBCroM397KDWamJquPpY vZGluZyBEYXRlOiAgMTAvMD QvMjAyNDwvdGQ+JGKsAQD1k WxlPSAn rAJlIMpzSk8qmFmodTdiMD8 vSXNykkveNYNajP5uISBcaY OieQowBO6oNPWgbztbk150M iAxMHB0 VDJznPKwB0OysY3rJfLpDEN aJKZvW4FogIXjUIdqI852WT yhRbK5ZSTjtsAvQ9MuUHWah WduOiB0 n0T0Ea7Dy5PqjwsjY0HliFG wJhLrPzgwRZl7R3NmIuhwcK I+WG39GXUoEJ60SHg1LCR5d WxlPSdi CWIyY4AqdN8lQfYkKLMrAXJ kOyc+PHRhYmxlIHdpZHRoPS eqFFDgPsLjsHoxUV2yKr1vS GVyLWNv wAeetCZaKqHfp5bpOVGyTKf fEI8sdBzbA2TcrSC4WILci7 h4Pp99H85jZ6LlaFZ+PGNvb AO1wXY1 rW2iBfPuLrY1BTaeE445XdO csSUhRfytn4lcb5xnkLw0Iw N3BLSlcjRnjVkhPDM8x2LvB b66I11h IHdpZHRoPSIxNSUiIHZhbGl ahk0bzB1fFo9+IHKvbES4aU J9wR3iNqXxUdD7XWwqW794V nRvcCIv Tjmfc5vxx0uymUp4AjOtYXD hipDrdTbePUI1m3ViEi37R2 AtqAnrb5MkLyy7ba16rWRst 9M2cWR2 H6TfRRNosrtjmHTwqSwdCE4 wTIXsxepxXPSxmZ2eOPGnK4 y2FdSuRhH0KKiqA4CcxjZ6T GJvbGQg AAFqbUFOuW3jzoybe2toyrk aItBvMFOhJHg9SYk8RQMwuM gtZcUtZMR0KhQ5MWG7lUQas U2afMoa ombmfY5jLim+XCM6zRJmcZR LIF5lEfjcqSC+FLUkVHV8qS euRRfrLJUaaB5lNHXhV3t3A iAwLjA1 KBykS7CuhbS3TOUkuCJiVUQ yrWYUoT4prmfpm2eplwosWh CxEDFyFAr0XSu8XHBprRnvS iBsZWZ0 HlO6VAK7bERltK9sqMkufeg jhN1tXdg+InszrFncGXB8ME x9G2NyQbd0VHOynCxtNZ9wg GFkZGlu Gv1bvXjnpWuhLR5dZZYfiff kl429QrQqn6eqNJXtnZLaZX euFLY3U44eo0Q9CFFeDIWhN BO5vNU9 dX8lfHsdyfaekUYysXwzvvV ldJlwHIxxAStvP260FCNltR jlPdNyHXf2N0CkOks8SNIkr JimFO1y mOAwEHuaQc5ndUeokMbkCA7 sSRLqnqhtv346PbMep5wkRR LcbNDzHPkwNYQ2N19rf2L8V CMwMDAw TZQ2zAN4aD1isTrmhfdamAT mdDsgdmVydGljYWwtYWxpZ2 56FECrsLkrRnYwqEv8Q3PhY lk5OCZi pJxgFD6yyARnYBhuEi7vwAp qhGfcKS8nGVDfmxlwp818Sb Mal2niNTXgqNUwMElnWPO4O 15mu2S4 AJQsILEbKGP8eSZ2sP0ltOv nbjogbGVmdDsgdmVydGljYW xgLTnxG142HCEsnEcqCzPap GllbnQg EVeySAu0Q3QbXwihmJP+PC9 6GIMyTW76jUZudISii4eyvN r0LdKaZMRtZXT3dMapWDorl 3JkZXIt V08jeUWbh5J9RRYkxFjnbWM kSsPpwAE5zX2yQInnqkcqr0 thjcraXspjw4euyp35dU00M 29sIHdp ZHRoPSIzMCUiIHZhbGlnbj0 wmT0rQf4+XZNdgWU1dWC6mX 6mPLFxYnM8YLevT670LmTdt CIvPjxj d6qbo5vgrMs2HzM1CFIwnrC dsMhgSSN4a4WiJk44V33vNG dpZHRoPSIyMCUiIHZhbGlnb y7yiR4w Ii8+HDLzhUY1wQA9oD5eAbG iKjQ1IEgeH337SuZhnAQzDu apS10wM6MtbOG+FABiKxz8J CBzdHls KY9xlCLsTZnqCz2qYAT6GpF fAkOjAFzjZ2BfXRJeqrsdng dkvAS3ZDLbZYQdiY54Az6db DogMTBw bSOByB9nxwpux2bajzhvTuB zUFHiSVs4QEx7DQYdyOatIe CuYOK6BtO1LKH3hLCnlN8fb Glnbjog bZ3vS7ZjRPRtxbyvJr75pG2 bZgNwWbB4TSzuEfw+Q1JBV0 ZPUkQsIEJSRUFOTkUgTUlDS EVMTEU8 M2XzSzb6KKMbiKzzJZ9uaMJ hEMaqMg8maVdrtAoyLS1cEK WuruzjQGGytK0mDOPchYWtu SbiGJ1b EJEdnxwaq446BmCnSMN1QYX xaNPiT3SmhB5gQlZxMTRiNV VrE5KubSAlULkvT472UQhpV mI2SCRo onUoT2OsEESydQxiDrO9v4D 3Ew5rKh0rNS0jZTd0ZZ36QI 20gRPpc3B9oWZ1A0OnLTQjl mctcmln aBW6VJZaWKDhvL85sGMtIEu vMk0zz4F2b619XXPqKAKkmW 59Gw1hcAomZCFkjEROuD8ar rukd3wg jyziUsCqBKNzWFz2NQf9TVV pvBcqQqEcZWM6VnH6AKB0vZ UswA3foXrsmuvdoG0iFaf+M jYgWWVh mkL5N0GnNbm7JZBctNohQE7 shEFrGLimKv9moJgxyOqjBX 5kDUMxjgujWUVmaA9pMGIcj HRvbTog FB1dUQWoozsuz993AtPqXFK 7SSLolONjA3QlbU1oZrLtZA XhHYIfA9XxyCRfOApbO103D GxlZnQ7 HIFavcUoC1PhAREbaDkvEiL 6u6R9Cu1IQL2IKMU7C7GmLu w9ILJalZgrVB5fkFQmOSajW p8kzVpv lFmbLI4qRFPivbrzDNNfqH6 aPITtsMZkoNpeOP4aJHWwkt jkz926GnBgBKI6EMTzsKTdA 6ZvdS4w UcWaVGQzNXDsP6NrvSRgMYn fN468KVnxZeQ1ZHUatsMqR0 UuKVKkiQigVyX7y5E5Ji9Xo IRyA9Eu C9o7T9CaCvmytGM+BX84SOU jZT03pNUhhBRjh4usuCz7Sf ZiPZXzBEW7iQryBTatj1IbE TXcU71v yGVmd1A8PXByhYiqvJGmGyK zxWP3fF8jCIppcyfel6xlxh pfAlooy5ddxq05jO33G31zU HdpZHRo EZQxMNHuDCVjeWjqgk1kwM9 wIi8+YFSpfJW5fEK5zJ0tTd QeCbV0RVuoQ545JuBpvDGzI lkpc9zh v1bwgJc8FkGuSJDaxxAriBz gVOT8c9FpTe96O62kOXlgKO QoCGJeIFYcEQHtoHalso7fo G9wIi8+ SE3aw0rdkf22gQ50bAQ+PHR kDRE2yVfsCTymQDGikP9oDN bwSiL2DSKyJtQvgE87oMWxA PvuBm3w mKdpaMdqNL7wYRPydfuyv96 5SxAgn0cdAPXalCKiSDmdXK J5K05lk3A0HOYpINDxYVL8m CH3bV5z bGlnbjogbGVmdDsgdmVydGl xYDsvYFmnA724CZMqeQkbGi XasOJpQ1aywqXWGW0yCgojc GQ+PHRk GUD6gJtqYRzlTDGjdE3lITY zW8k1TvGuCjH7BYawR9Dntl V3HVCipGGoDTExfCLEnA5dv eqin1jh itugVxTlGHHyRUr0KDe4DFH wwGoxXkSpFOJ2QpK9HOQ4eV HwkE0jmGuskguwvZ5hElk+R klOOjwv dGQ+XKUuIAF7uDelCSewGHW ynF2sCJGpL8l7KmQkBoR1BJ uaW5CbivY2GQOgtDOfNQAui TDBvV8h ithqz1wqoehiQsJeIMOwJZm 5PWj4CRVmuMsnBhBgMGH4Iu L4BRZ0zTLuxQ6rzQpswuozv G9wOyc+ TVJOOjwvdGQ+YMKbSQZ8jGw lYQvfYOHjwA7tLRAvL7s1Nt PwEqI4YThaV5SpkxR7TGWbp GQgMTBw uKFJzZ9zlcrca2hkobujFbB eIYCvVGn7ZOf1CHOesZymIa WnODI4GdQ1XRN8dJXjnS2an Glnbjog pN8pUxd+MGG3SSW8MJ28IU0 2F0YkYmasrAXjqZP+PHRhYm xlIHdpZHRoPScxMDAlJyBzd NbrXA3f Ym9 (more content not included)... Normal [facility] HCG ( test) Ql (U)o n 06-07-2024 Interpretation and review of laboratory results Abnormal [facility] Preg Test, Ur Positive [facility] Urinalysis macro (dipstick) panel (U)on 06-07-2024 Bilirubin, UA Negative Negative - 4(70) +++ mg/dL [facility] Blood, UA Negative Negative - 50 Osvaldo/mcL [facility] Clarity, UA Clear [facility] Color, UA Yellow [facility] Glucose, UA Negative Negative - 1999(110) ++++ mg/dL [facility] Interpretation and review of laboratory results Abnormal [facility] Ketones, UA Negative Negative - 160(16) ++++ mg/dL [facility] Leukocytes, UA Trace Negative - 500+++ Edison/mcL [facility] Nitrite, UA Negative Negative - Positive [facility] pH, UA 7.5 5 - 9 [facility] Protein, UA Negative Negative - 1999(20) ++++ mg/dL [facility] Spec Grav, UA 1.020 1 - 1.03 [facility] Urobilinogen, UA 0.2 0.2 - 12 mg/dL [facility] Coding Summaryon 06-05-2024 Coding Summary HTMLBase 64 QehmomypKWn0bXd+PGhlYWQ +FD3QEBIaV61zsTLkfX5yM7 NMTElOSywgQVBQTElOSyIgb oYgWV7myNLvTFNp IC8+TD3wSUIfVnpniAHom6K 0nYX7T54qrg4hDGdtdMV0OP FpZnYebwvrv4domWv6PTqjO mluOyBt XNExdN06KOL5aH72Ec85hYO teEHqe3gueKy6KwEqKQBcQV B8jFddYDnoy0XuZAUxI31yy USrt1K4 XQTuhHfghPZyHyKvwHS8iC3 sNBlqapxtf6qfzspdHkr3zx 40iPVjr2J7nJX8C7EpfaM4U GJvbGQg EdrypMXXqQ2fkzsrl8uhesd wYeWnUXAoHBz7FAy4VBEtlI oqZuBpXJ17CWM3AWXpcdZlU 2FsLWFs iCudGxT5q5E7Ay4JF4LXKvw kC2AILPZDIUvxaGC+PC90cj 40T2EfMrdzScs4HPGsSRR2s WS0wQ1g VRZkZBmzy6X0vXN9J3HxhpY rbr0lx3ndCIPvYMjyO92ghK Jmp0M1ZHSwuAN4WUZezGalC iBzaG93 Oyc+KJXjlMven1PmTzmfc3r hk8wztHt1VnhtNUKxciDbfJ pkUFO8d0AoHm4oTSBguLW4t JX9cU1k JgOpMsR4QQbpW993NjCqnGN bZgctY73mM9UxqGS+PHRyPj f1JJGbmMybLE3kU4HwQHRta mctbGVm hTmoOS7fWIAremvgSREesP5 bLGOkI2q2DaFfYnX5XMocE7 QfVFQqxqmeZp97wH4kEbXgW nL8XHmi R3HmcbZ5FKNcwUDfDDucISM 7D18wa3N6VWWgOQFfVSU5gP R1oX9zeMyiqapfsQGiqZqgg mVydGlj CYqtBBzdM299ZALtjYqjDtU vZGluZyBEYXRlOiAgMTAvMD EvMjAyNDwvdGQ+IRZyUED7r WxlPSAn cXSjRDuhGy2eiPwlrLqlBI4 sAIApliguMCDnjF0aJZWstD UmqQxaSS4jSKMrvxdsl324P iAxMHB0 YALqkNTgI0SimB0xNfZhJUR cFSSaQ9WocVWuDNgnD636GE ibZgA3EXAdogJdK0KxEIUfx WduOiB0 w9G8Dl0Vc1OgnqxeF6RgcYW hNqViPcucXPq1P1UbYthzkM I+WU74XFNbFA09GUd7TMN2w WxlPSdi RAQnT6MseA7rEhNfXYGaHVJ kOyc+PHRhYmxlIHdpZHRoPS puNNAwKxIysAtlFG3aBg3nQ GVyLWNv lKljyBJrMoGqi3moVRYgCOr dCF5pgDphZ9GmgRE6VMXbv0 s8Er18M23yN3TbcEE+PGNvb EM9rKY5 aW0uTzHbAiY9YLodA629DlI nyIWqGhaag1gji7zecAx1Ry Q9EDTsumJkaYweKVK7h0HpK k50S66k IHdpZHRoPSIxNSUiIHZhbGl lua3pwG1eTp8+ZNTowIT5kD G8zK7pOsZyRmN1FKfvI729D nRvcCIv Kkzcz1xpf9busSu5SfGqZJZ dsnAmnCcmRID4b6ElQw06V7 KzqWwny5SvYsc0ux04rIQsk 2H4vAO9 Q0UkMAXivhlexDZkhMjySP0 hXDWzeedtRUTahL2hMQHvC4 q4PqCaWuW3ZZwiU3QnafN7W GJvbGQg HSTqmMGTcX7orvpsj8afyvl tCbHiYXFiHLh5CNw7QBCcwT uwBfMeMHI5UkO7XXF7fCRlu S7geJxh nhkeeO9yZuw+XZK3pPByhFP VHF5fBcdjrVU+DQLnBLX9hI ttRDniWUYghL7lMQWhP2j9N iAwLjA1 AFbeN9EfsjA9LZDueSAoGNN emPZZnG3nsymyd6prtcxrFq CkQUGcASh9ZVo7LWEadUgcG iBsZWZ0 ChZ6XYC6jVMdsQ5dcHoixia tyZ9lIdg+MwkklMiiCFM1OF l8P3CiMrt1WYWvrAboZI8kb GFkZGlu Pa2vfYfnuUrtMM4xSDQqywy ow453EiOok4miZRTlmDQbZL nzGOP2X20qs2E9DDHxBQBhF IT7jSV1 pV3jiCgsuunkmBKdhBuliiL zfCecNNlcGDdnY443FHOdlL mlBbWdLRb7G8VwPui5SCVig DvxQN4f uUYrRLqfRh5xiIrilFyjLZ7 yTWOpobupb617PoWwh9paZV EebGAbFYcjRNT6U05zk8K0A CMwMDAw OOU1uEO1tD9qfIhfyhwjqGJ mdDsgdmVydGljYWwtYWxpZ2 18XNQxyRkyUxWwtWw5U1LgX ma9NDFg cTmvFX2wvQSnIUndZx6reOo zcXioER6dQHFbrjsgz966Bq Ofd3rpQOQarNWyPFggQYN2R 60bp3Y9 LEToOBWfULL2eFQ7xK3wiUu nbjogbGVmdDsgdmVydGljYW tvBBxmJ293VNEtjHfiBiXvj GllbnQg RQoiGOe7E7LsHdgbxTA+PC9 2KAScJY86iBCueSNly1kibZ i4AiJgDIXeHPG7pDhsJMxpz 3JkZXIt G72cqBPyg7I7ZOBufBltfTD qXaYxuCC5nU7xPZxahjtfn8 klqspiCpiwy7pmrm23bU64A 29sIHdp ZHRoPSIzMCUiIHZhbGlnbj0 soL2uLp6+YVLkkTQ6nMV0qQ 9yLMScBkY9KWreA982CfUnz CIvPjxj p2hrw8hzhSp7StA0VMZujfP wgSneJBV7q4BxPb41D68lMS dpZHRoPSIyMCUiIHZhbGlnb h4gcF6a Ii8+OCPauHX1tLS9zN2kKzN tUaW7PHfpH498PjVanKEcIn gsY18eY9GxtWM+NKSbEdn1M CBzdHls AU8ziUOpUNctTi1yYRS7OwN aSsZjFHrzE7EpABLczuqcdd jaiPR1RFQjMGMmkQ44Gy4gk DogMTBw fTJGwH8hrkpef1uaarlzOcO uLUViVCa2ZHu2VLSoeXfgTr MdBTT9GfG5NHY3nVAntS4av Glnbjog bR4hH8AgQEDwckviVx25nR1 cNlIkNlV9GKggXuu+Q1JBV0 ZPUkQsIEJSRUFOTkUgTUlDS EVMTEU8 D0LgNee5EXFwcFokIS9fbZR jWWgdVj0jxLotkVxyJB4nFI GrrmivUWPcjE3eYZShzETig OrfBG2s BMChbzzdt495FiAbQMA2COP ixMNmD1XwhE7yHlPqCEGbUX BrO7FdzTLjIHymF993EQwoC kT1BXKz teAkO6IiUDKwuRbfIfH0i2P 8Sa8gLx8iGT3bMQe6RZ21FB 76pNTwu5U0hER3D4GfECSgp mctcmln dMX0YTYzCWYgcC19aSJvZLd qZc5di1A2j342OBNaCMLpzA 61Zr6jaZsnSQQweOWSrW2ij jymr7gz orruWdQzKWHgYIp2FPo9HTP eoLvlFrUxQVY3KuK5EDN7vE EclZ6wsIztvsfmkA4mCsf+M jYgWWVh cxR9I6XuUqy6ENBbbVxeRW4 ijEGcAFmnFg8qqPqikTbnML 8uPPJzrkeeJPJgbW3eITTtd HRvbTog NC5vCBFwipjzk256OuBeWYO 2ZQAflINpB0PklV7zNkDmML XnAGUjW6KpcRUqJNhuO642Q GxlZnQ7 ABWbqmZyA6JuWDMlcIiiYxL 2g3O1Ro9TOI0ALPT0D3YcXp q0RSFjuLmgVZ9jdYQsLXnkF g0jvIee dZzaHO7rWUExdqxrTZByeI4 zEMQbhQJwyQgtDT4dPSPehz trm887WfCzEDD0UXScsRTkI 8ZumJ9f WiAvMDCnSGNxS2JifQPkDIu iP157FLudUdR9BVQgkrPkN7 JpLEQcsKfwKsT8m8I5Sm1OH DwvdGQ+ FE65nt22U3ByIhkkLxl7ODX qOII9rZC9xF5wBZVoNMbxj4 L5cIN2I8EiorRnsp2os0nqN XBzZTog W07cdIQub9C8JRUoxLB7CGM fwOxiBwOtaB12Oqb+PGNvbG ewj8LdCvzcs1muj6crnLq4V jMwJSIg ogBefAgxJUY9w7SqRh30W64 sIHdpZHRoPSIzMCUiIHZhbG wqmt6xfN8zDx0+RHLagOT8w NO9yC6l MxYgFcD5BYnaJ326TgBjqBM sOpwbi2iph6udhMi1FaFwJS AcqoEymSxfLNV6n0CrCs07B 2NvbGdy p6LvOih8ar71zYTxa8Q4rWO 3U9NsXTPfrwoztTUkbAauAM 4rPTXpdafkGLBdyF1fXDReA 5b4RdXz FjR9ZRwmT6KaxyZ4FEWiuHP jNCWxyYJPtL6ctwkjx3wycx jlAvSuHJMqXBz7MPe0MZAan WduOiBs NUB1XlP2YQT5cZKbiI2afWo nineqyU1tBni+VSa2h5jcoT EmSG9nkJP1TK32HR49xCGph 0X6pAY8 A1FsKTMzscwpowuomIG5XNJ lGBRgiI73Yt1txFfmHr5iGX ObCRL1ERAxeFEyA2OyjN8nV iAjMDAw VEXcW8AbmBBvSSxxJ550XIe mFxG2UYXpavBeU8SnSZPwhW fcUsV1s8K6Wj6ICR91EO56T M17iVCi j0Q3zGS1M2SoIHKukurhgqp hiWP1YAOsJHPmjJ76Bd9vqZ fbTp6yATVhUVG3KGFqvMRiA 0GvlF3p LmBaLRWmDEAdI6MskRFjFZm zY637BBprEeY9MEIbmvMrK0 FzJHBsxFqhRcI3z2X0Tc0DW o37EV67 TX34zPYhy6W1mKD5M9DyRMT nfycmrliogWV5JEOoENUfxM 08Tu5mwRlbUv6dDUGbAKS6Z FRpbWVz X5VmmW2bKyWwJFCtYAXpB6R zwJVaRFbcV868KWojHxS0ND HuorVlR4NvYYOudFoqSgU2l 0A3Xe3I TRyxbfz5E7VlKcdnmSQ+PC9 3LPOlJL07aCHepWMqq8ceuF l4PyOdSQCwPHT6qSlfWRtgl 3JkZXIt Y29 (more content not included)... Normal [facility] Office/Clinic Noteon 024 Office/Clinic Note [...] 113.040 kg Body Mass Index 39.11 kg/m2 [place] Body Weight Calculated 61.437 kg BSA Measured 2.31 m2 General: Alert and oriented, No acute distress. Musculoskeletal: Positive point tenderness over the left gluteal region as compared to the right. Positive straight leg raise. Positive piriformis muscle sign with external rotation of the hip with adduction towards the opposite shoulder.. Impression and Plan Diagnosis Sciatica of left side (JCM21-II M54.32). Plan: Discussed with patient stretches she can do to help with her sciatica. They were demonstrated in the office. Will hold off on any steroids.. Orders Orders Evaluation and Management: [id number] Office visit - established pt, Level 3 (Order): 06/01/2024 13:28 EDT, Qty: 1, Sciatica of left side. [Electronically Signed on: 06/01/2024 13:56 EDT] Radha Gomez MD [Verified on: 06/01/2024 13:56 EDT] Radha Gomez MD Normal [facility] .Auto Diff 1on 05-28-2024 Auto Heard % 5 % Normal 09-16 [facility] Comment on above: Performed By: #### 1 [id number], 2408134, 9776529, [id number] #### [facility] (DEFAULT) [address] [place] [address] 44057 Baso Abs# 0.1 x10 Normal 0.0-0.2 [facility] Comment on above: Performed By: #### 1 [id number], 9170681, 2052271, [id number] #### [facility] (DEFAULT) [address] [place] [address] 32412 Basophils/100 WBC (Bld) 0.6 % Normal 0.2-2.0 [facility] Comment on above: Performed By: #### 1 [id number], 8946690, 6918832, [id number] #### [facility] (DEFAULT) [address] [place] [address] 16132 Eos Abs# 0.3 x10 Normal 0.0-0.4 [facility] Comment on above: Performed By: #### 1 [id number], 3847390, 9746700, [id number] #### [facility] (DEFAULT) [address] [place] [address] 97497 Eosinophils/100 WBC (Bld) 2.5 % Normal 0.9-4.0 [facility] Comment on above: Performed By: #### 1 3916032, 6920530, 7533874, [id number] #### [facility] (DEFAULT) [address] [place] [address] 29295 Lymph Abs# 3.6 x10 High 1.3-2.9 [facility] Comment on above: Performed By: #### 1 7682102, 3910994, 8673348, [id number] #### [facility] (DEFAULT) [address] [place] [address] 76988 Lymphocytes/100 WBC (Bld) 27 % Normal 14-48 [facility] Comment on above: Performed By: #### 1 1933556, 0578877, 4668787, [id number] #### [facility] (DEFAULT) [address] [place] [address] 36829 Heard Abs# 0.7 x10 Normal 0.0-0.8 [facility] Comment on above: Performed By: #### 1 [id number], 9393328, 6457212, [id number] #### [facility] (DEFAULT) [address] [place] [address] Neut Abs# 8.4 x10 Normal 1.5-9.2 [facility] Comment on above: Performed By: #### 1 0493079, 6841663, 0085139, [id number] #### [facility] (DEFAULT) [address] [place] [address] Neutrophils/100 WBC (Bld) 64 % Normal 44-88 [facility] Comment on above: Performed By: #### 1 [id number], 7726523, 6821977, [id number] #### [facility] (DEFAULT) [address] [place] [address] CBC w/ Auto Diffon 4 Man Diff? Auto Invalid Interpretation Code [facility] Comment on above: Performed By: #### 1 [id number], 9122654, 5537636, [id number] #### [facility] (DEFAULT) [address] [place] [address] Erythrocyte distribution width (RBC) [Ratio] 13.6 % Normal 11.5-15.0 [facility] Comment on above: Performed By: #### 1 6304554, 5234492, 1849589, [id number] #### [facility] (DEFAULT) [address] [place] [address] Hematocrit (Bld) [Volume fraction] 42.0 % High 33.7-40.4 [facility] Comment on above: Performed By: #### 1 8863690, 9969152, 4256307, [id number] #### [facility] (DEFAULT) [address] [place] [address] Hemoglobin (Bld) [Mass/Vol] 13.8 g/dL Normal 11.3-15.9 [facility] Comment on above: Performed By: #### 1 4837167, 4524503, 7220057, [id number] #### [facility] (DEFAULT) [address] [place] [address] MCH (RBC) [Entitic mass] 28 pg Normal 24-34 [facility] Comment on above: Performed By: #### 1 4305693, 8725028, 8093864, [id number] #### [facility] (DEFAULT) [address] [place] [address] MCHC (RBC) [Mass/Vol] 33 g/dL Normal 26-37 [facility] Comment on above: Performed By: #### 1 3233743, 9164470, 0382017, [id number] #### [facility] (DEFAULT) [address] [place] [address] MCV (RBC) [Entitic vol] 86 fL Normal 81-100 [facility] Comment on above: Performed By: #### 1 3979121, 5521467, 9584048, [id number] #### [facility] (DEFAULT) [address] [place] [address] Platelet 352 x10 Normal 138-427 [facility] Comment on above: Performed By: #### 1 9438677, 6788910, 8642197, [id number] #### [facility] (DEFAULT) [address] [place] [address] Platelet mean volume (Bld) [Entitic vol] 7.8 fL Normal 6.3-10.2 [facility] Comment on above: Performed By: #### 1 2864302, 1751083, 1315763, [id number] #### [facility] (DEFAULT) [address] [place] [address] RBC 4.90 x10 Normal 3.70-5.30 [facility] Comment on above: Performed By: #### 1 8797515, 0546541, 6014410, [id number] #### [facility] (DEFAULT) [address] [place] [address] WBC 13.1 x10 High 3.5-10.5 [facility] Comment on above: Performed By: #### 1 6064412, 5792151, 4079882, [id number] #### [facility] (DEFAULT) [address] [place], [place] [id number] [facility] Standardon 05-28-2024 eGFR Non AA >60 Invalid Interpretation Code [facility] Comment on above: Performed By: #### 1 3098552, 0353299, 0884865, [id number] ####[facility] (DEFAULT)[address] [place] [address] eGFR AA >60 Invalid Interpretation Code [facility] Comment on above: Performed By: #### 1 7238669, 1804150, 2712961, [id number] ####[facility] (DEFAULT)[address] [place] [address] Albumin [Mass/Vol] 4.4 g/dL Normal 3.5-5.0 [facility] Comment on above: Performed By: #### 1 7552435, 7527692, 0043798, [id number] ####[facility] (DEFAULT)[address] [place] [address] Albumin/Globulin [Mass ratio] 1.2 {ratio} Low 1.4-2.6 [facility] Comment on above: Performed By: #### 1 1358873, 4165341, 1609535, [id number] ####[facility] (DEFAULT)[address] [place] [address] Alk Phos 46 IU/L Normal 32-91 [facility] Comment on above: Performed By: #### 1 3521849, 4010547, 9105546, [id number] ####[facility] (DEFAULT)[address] [place] [address] ALT [Catalytic activity/Vol] 29.0 U/L Normal 14.0-54.0 [facility] Comment on above: Performed By: #### 1 9822725, 1107133, 1266796, [id number] ####[facility] (DEFAULT)[address] [place] [address] Anion gap [Moles/Vol] 11.4 mmol/L Normal 5.0-19.0 [facility] Comment on above: Performed By: #### 1 3171683, 8032520, 0772768, [id number] ####[facility] (DEFAULT)[address] [place] [address] 95885 AST [Catalytic activity/Vol] 30 U/L Normal 15-41 [facility] Comment on above: Performed By: #### 1 3028656, 8016058, 1941082, [id number] ####[facility] (DEFAULT)[address] [place] [address] 23674 Bili Total 0.4 mg/dL Normal 0.3-1.2 [facility] Comment on above: Performed By: #### 1 0369647, 2860093, 9015169, [id number] ####[facility] (DEFAULT)[address] [place] [address] 20319 Calcium [Mass/Vol] 8.9 mg/dL Normal 8.9-10.3 [facility] Comment on above: Performed By: #### 1 8188305, 9413150, 5910773, [id number] ####[facility] (DEFAULT)[address] [place] [address] 56703 Chloride [Moles/Vol] 104 mmol/L Normal 101-111 [facility] Comment on above: Performed By: #### 1 0482793, 0227786, 1456607, [id number] ####[facility] (DEFAULT)[address] [place] [address] 80573 CO2 [Moles/Vol] 20 mmol/L Low 21-32 [facility] Comment on above: Performed By: #### 1 8445487, 0694650, 3114910, [id number] ####[facility] (DEFAULT)[address] [place] [address] 44852 Creatinine [Mass/Vol] 0.66 mg/dL Normal 0.60-1.30 [facility] Comment on above: Performed By: #### 1 4341621, 2140436, 0708831, [id number] ####[facility] (DEFAULT)[address] [place] [address] 62107 Globulin (S) [Mass/Vol] 3.5 g/dL Normal 1.5-4.3 [facility] Comment on above: Performed By: #### 1 1661198, 2574139, 6213187, [id number] ####[facility] (DEFAULT)[address] [place] [address] 97026 Glucose [Mass/Vol] 100.0 mg/dL Normal 74.0-118.0 [facility] Comment on above: Performed By: #### 1 4142945, 6162037, 4750473, [id number] ####[facility] (DEFAULT)[address] [place] [address] 09642 Osmolality 263 mOsm/L Invalid Interpretation Code [facility] Comment on above: Performed By: #### 1 1836345, 9054631, 4191765, [id number] ####[facility] (DEFAULT)[address] [place] [address] 86318 Potassium [Moles/Vol] 3.4 mmol/L Low 3.6-5.1 [facility] Comment on above: Performed By: #### 1 1436977, 8361284, 2331436, [id number] ####[facility] (DEFAULT)[address] [place] [address] 96575 Protein [Mass/Vol] 7.9 g/dL Normal 6.5-8.1 [facility] Comment on above: Performed By: #### 1 7655071, 9877812, 9730473, [id number] ####[facility] (DEFAULT)[address] [place] [address] 52668 Sodium [Moles/Vol] 132.0 mmol/L Low 136.0-144.0 [facility] Comment on above: Performed By: #### 1 4796076, 5047593, 7330586, [id number] ####[facility] (DEFAULT)[address] [place] [address] 99706 Urea nitrogen [Mass/Vol] 9 mg/dL Normal 8-26 [facility] Comment on above: Performed By: #### 1 3411072, 2842980, 9771690, [id number] ####[facility] (DEFAULT)[address] [place] [address] 04969 Urea nitrogen/Creatinine [Mass ratio] 13.6 mg/mg Normal 4.6-16.2 [facility] Comment on above: Performed By: #### 1 2462006, 3167379, 8201731, [id number] ####[facility] (DEFAULT)[address] [place] [address] 73103 ED Clinical Summaryon 2023 ED Clinical Summary [facility] - Emergency Department [address] [place] [address] 59913 ED Clinical Summary PERSON INFORMATION Name: SHERLY ASTUDILLO Age: 24 Years Sex: FEMALE : 2000 MRN: Acct#: Visit Reason: Back pain; Abdominal pain - ; ABD PAIN LT SIDE, LT LEG NUMB Arrival: 05/28/2024 14:14:57 Discharge: 05/28/2024 17:55:00 LOS: 000 03:41 Check In: 05/28/2024 14:14:57 Checkout:05/28/2024 17:55:00 Address: [address] [place], [place] [id number] PCP: Radha Gomez MD PROVIDER INFORMATION Provider Role Assigned Unassigned Evonne Cheung PA-C ED PA 05/28/2024 14:19:07 Daisy Freire [employer] Nurse 05/28/2024 14:26:14 VITALS INFORMATION Vital Sign [...] Home PATIENT EDUCATION INFORMATION Instructions: Muscle Strain, Niev-zw-Zdoy; Sciatica, Mdcr-nm-Rzru; Back Exercises, Eyfd-lz-Mxok Follow-Up: With: Address: When: Radha Gomez MD [address] [place] [address] Within 3 to 5 days DIAGNOSIS: 1:6 weeks gestation of ; 2:Low back pain with left-sided sciatica; 3:Pain in the side Patient Understands: Yes - Patient/family/caregive r verbalizes understanding of instructions given Comment: Normal [facility] ED Clinical Summary [facility] ? Urgent Care [address] [place] [address] Clinical Summary PERSON INFORMATION Name: SHERLY ASTUDILLO Age: 24 Years Sex: FEMALE : 2000 MRN: Acct#: Visit Reason: UC - Abdominal Pain; LT SIDE PAIN, LEG PAIN Arrival: 05/28/2024 14:07:02 Discharge: 05/28/2024 14:10:00 LOS: 000 00:03 Check In: 05/28/2024 14:07:02 Checkout: 05/28/2024 14:10:00 Address: [address] [facility] [address] PCP: Radha Gomez MD PROVIDER INFORMATION Provider [...] left flank pain; Currently Patient Understands: Comment: [facility] ED Note-Nursingon 05-28-2024 ED Note-Nursing Finish Photographer at bedside jimmie landa US was performed. pt tolerated well [facility] ED Note-Nursing Pt ambulatory back t [...] Pt is A/Ox4 call light within reach [facility] ED Patient Summaryon 024 ED Patient Summary [facility] Emergency Department [address] [place] [id number] PATIENT DISCHARGE INSTRUCTIONS Patient Information Name: SHERLY ASTUDILLO Age: 24 Years Date of : 2000 Reason For Visit: Back pain; Abdominal pain - ; ABD PAIN LT SIDE, LT LEG NUMB Arrival Time: 05/28/2024 14:14:57 Primary Care Physician: Radha Gomez MD Attending Physician: Pam Gao MD Comment: Visit Diagnosis: Diagnoses This Visit 6 weeks gestation of (Z3A.01) Abdominal pain - ([id number]) Back pain ([id number]) Low back pain with left-sided sciatica (M54.42) Pain in the side (R10.9) The Pharmacy at [facility] is open Tuesday through Tuesday from [...] alcohol and/or drug addiction problems; contact the [facility] 28/03 Crisis Hotline -Text 5RBPY sj 893509. If you received any narcotics, sedation, or [...] documents With: Address: When: Radha Gomez MD [address] [place] [id number] Within 3 to 5 days Medication Information: The exam and treatment you received today in the [facility] Emergency Department were for an urgent problem and are not intended as complete care. It is important for you to follow up with a doctor, nurse practitioner, or physician?s teachers' assistant for ongoing care. If your symptoms [...] so we can reach you if necessary. [facility] Emergency Department has provided you with a complete list of medications post discharge. Please inform your conservation enforcement officer/provider of your visit and for further instruction [...] can happen (more content not included)... Normal [facility] ED Patient Summary [facility] ? Urgent Care [address] [place] [id number] PATIENT DISCHARGE INSTRUCTIONS Patient Information Name: SHERLY ASTUDILLO Age: 24 Years Date of : 2000 [facility]: [id number] Reason For Visit: UC - Abdominal Pain; LT SIDE PAIN, LEG PAIN Arrival Time: 05/28/2024 14:07:02 Primary Care Physician: Radha Gomez MD Attending Physician: Spenser Fang Comment: Patient Education Medication Information: The exam and treatment you received today in the [facility] Emergency Department were for an urgent problem and are not intended as complete care. It is important for you to follow up with a doctor, nurse practitioner, or physician?s teachers' assistant for ongoing care. If your symptoms [...] so we can reach you if necessary. [facility] Emergency Department has provided you with a complete list of medications post discharge. Please inform your conservation enforcement officer/provider of your visit and for further instruction [...] (R10.9) Currently (Z34.90) UC - Abdominal Pain ([id number]) If you received any narcotics, sedation, or [...] Disease Control and Prevention May 2014 Normal [facility] Lactic Acidon 05-28-2024 Lactic Acid 9.1 mg/dL Normal 4.5-19.8 [facility] Comment on above: Performed By: #### [id number] #### [facility] (DEFAULT) [address] [place] [address] UA [id number] 05-28-2024 UA Bacteria Trace [facility] Comment on above: Order Comment: Urina lysis Microscopic order added on by [employer] Expert Rules system. Performed By: #### 5 [id number] #### [facility] (DEFAULT) [address] [place] [address] UA RBC None Seen [facility] Comment on above: Order Comment: Urina lysis Microscopic order added on by [employer] Expert Rules system. Performed By: #### [id number] #### [facility] (DEFAULT) [address] [place] [address] UA Squam Epi Moderate [facility] Comment on above: Order Comment: Urina lysis Microscopic order added on by [employer] Expert Rules system. Performed By: #### 5 [id number] #### [facility] (DEFAULT) [address] [place] [address] UA WBC 0-2 [facility] Comment on above: Order Comment: Urina lysis Microscopic order added on by [employer] Expert Rules system. Performed By: #### 5 [id number], [id number] #### [facility] (DEFAULT) [address] [place] [address] UA w Culture if Ind Standard on 05-28-2024 Breakpoint UA [facility] Comment on above: Performed By: #### 5 [id number], [id number] #### [facility] (DEFAULT) [address] [place] [address] Color (U) Straw [facility] Comment on above: Performed By: #### 5 [id number], [id number] #### [facility] (DEFAULT) [address] [place] [address] Culture? Not Indicated Invalid Interpretation Code [facility] Comment on above: Result Comment: Resu lt created by rule GL_MAGR_ADD_UA_CULT Result created by rule GL_MAGR_ADD_UA_CULT Performed By: #### 5 [id number] #### [facility] (DEFAULT) [address] [place] [address] 16097 Glucose (U) [Mass/Vol] Negative Normal [facility] Comment on above: Performed By: #### 5 [id number] #### [facility] (DEFAULT) [address] [place] [address] 16036 Ketones Ql (U) Negative Normal [facility] Comment on above: Performed By: #### 5 [id number], [id number] #### [facility] (DEFAULT) [address] [place] [address] Micro? Indicated Invalid Interpretation Code [facility] Comment on above: Result Comment: Resu lt created by rule GL_MAGR_ADD_UA_MICRO Performed By: #### 5 [id number] #### [facility] (DEFAULT) [address] [place] [address] UA Bilirubin Negative Normal [facility] Comment on above: Performed By: #### 5 [id number], [id number] #### [facility] (DEFAULT) [address] [place] [address] 09713 UA Blood Negative Normal [facility] Comment on above: Performed By: #### 5 [id number], [id number] #### [facility] (DEFAULT) [address] [place] [address] 45966 UA Clarity SL CLOUDY Abnormal CLEAR [facility] Comment on above: Performed By: #### 5 [id number], [id number] #### [facility] (DEFAULT) [address] [place] [address] 30925 UA Leuk Est SMALL Abnormal NEGATIVE [facility] Comment on above: Performed By: #### 5 [id number], [id number] #### [facility] (DEFAULT) [address] [place] [address] 84449 UA Nitrite Negative Normal NEGATIVE [facility] Comment on above: Performed By: #### 5 [id number], [id number] #### [facility] (DEFAULT) [address] [place] [address] 60576 UA pH 6.0 Normal 5-8 [facility] Comment on above: Performed By: #### 5 [id number], [id number] #### [facility] (DEFAULT) [address] [place] [address] UA Protein Negative Normal NEGATIVE [facility] Comment on above: Performed By: #### 5 [id number], [id number] #### [facility] (DEFAULT) [address] [place] [address] 70582 UA Spec Grav 1.010 Normal 1.001-1.035 [facility] Comment on above: Performed By: #### 5 [id number], [id number] #### [facility] (DEFAULT) [address] [place] [address] 99449 UA Urobilinogen 0.2 mg/dL Normal 0.2-1.0 [facility] Comment on above: Performed By: #### 5 [id number], [id number] #### [facility] (DEFAULT) [address] [place] [address] 07706 Urine Source Clean Catch Normal [facility] Comment on above: Performed By: #### 5 [id number], [id number] #### [facility] (DEFAULT) [address] [place] [address] 86315 US 1st Trimesteron 05-28-2024 US 1st Trimester [...] Yeh MD 05/28/24 7:34 pm Technologist: PM [facility] US Transvaginalon 05-28-2024 US Transvaginal EXAM: [...] Yeh MD 05/28/24 7:34 pm Technologist: PM [facility] Urgent Care Note- Provideron 05-28-2024 Urgent [...] History Medical history: Resolved Ankle fracture, left (89022794): Resolved. 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 Surgical history: Cholecystectomy ([id number]).. Family history: Anxiety Father Sister Diabetes mellitus [...] JanuaryAilin RN 11/19/2023 Alcohol Use: Current Comment: Gillian [...] Diagnosis Abdominal pain, acute, left upper quadrant (RAJ56-YA R10.12, Discharge, Medical) Acute left flank pain (IQI59-BH R10.9, Discharge, Medical) Currently (CFQ45-OD Z34.90, Discharge, Medical) Plan Condition: Stable, Guarded. [...] on: 05/28/2024 14:16 EDT] Spenser Fang Normal [facility] hCG Quantitativeon 4 hCG Quantitative 83125.0 mIU/mL High 0.0-0.6 [facility] Comment on above: Result Comment: Post -Menopausal Reference Range is: 0.1-11.6 mIU/mL Performed By: #### 1 [id number], [id number] ####[facility] (DEFAULT)[address] [place] [address] HCG ( test) Ql (U)o n 09-03-2024 Interpretation and review of laboratory results Abnormal [facility] Preg Test, Ur Positive [facility] Progress Noteson 04-24-2024 Blender Authentication Interface Message Text Attestation signed by [...] OMFS PATIENT VISIT CHIEF COMPLAINT: Toothache and [place] Teeth HISTORY OF PRESENT ILLNESS: 24-year-old female [...] canal DIAGNOSIS: Abnormal tooth eruption (Primary Diagnosis) [[id number]] Impacted third molar tooth [[id number]] Caries, Impacted wisdom teeth, and Retained dental root ASSESSMENT: #1 Caries #16 Caries #17 and #32, Partial bony Impaction with pericoronitis PLAN: Surgical extractions #'s 17, 32, Extractions #'s 1, 16, and with local anesthesia Pavan Lee DMD, MD Normal [facility] Blender Authentication Interface Message Text Normal [facility] Coding Summaryon 03-28-2024 Coding Summary HTMLBase 64 KchalwtcYVy1tLr+PGhlYWQ +XP1EQTHzL29gjGBriR7qL4 NMTElOSywgQVBQTElOSyIgb iYrYO7ayBSmJHRh IC8+NS0zKTPkUimveGWek4K 9vXF9G03awi6rLOcqxZT7AE LgRqWsykclw1ypbNy7CGlxQ mluOyBt WMZapW83QWN6xS51Bb72zSC mmDSvj9kyxAj0GxVsXNPaMD I0xRmiJDywc8WsHJKhV62vv BPxo9Y5 QILfsXivaVJaZdUzdCX6hL9 nUZbfpqnxy8qlyszeHne0gc 90iIFjb6G5xSV3M7ZlxgV8V GJvbGQg VbiduTHDaR0vpqyie3qdxsz rKcNkDONyIXe8KKw7PTDjtD ouXyIyIS21RVL2ZYBggeUkA 2FsLWFs sGumSqS4v9Q3Hb8WZ6IYCmf gN4QZGZWMPWykuYF+PC90cj 42Q3TtNxbeOgl3HTQqEYF6f YV0bH1z WFTyRJuve0L3nTM0B4TnvcP upk2bk1qfAQLrKZjjA80chD Czw3B8FJKrdWG3ACBaiKvfD iBzaG93 Oyc+IMBfkSbjx2QvQassa3z ik2fjdFd0OueqARNyvcZxbY rmEEC5e6TqCl9qJHLpfCI4q SP7hX6o DtFwJzR0XVvcK067YzOriGN ySeopM53oD1CweJC+PHRyPj a2XLNgeZceGO1lL2OzHCAwv mctbGVm gKjhFP2wPVCcyxfzRAQgsQ7 eUKZoJ9a9SvRwNwD5YVyiC0 WzOEWtubkgDo17tA4vObVlC iE1UNab A8ZeqrF2XMMlmCDkNXpfGWI 2J22qe4H1YVVkKOKrQRI7uZ I3oS5zpAgqxfcavJEnuGusd mVydGlj ZHnaUBqaF062IEGfpDjlVnU vZGluZyBEYXRlOiAgMDcvMj QvMjAyNDwvdGQ+AXEaYQI7s WxlPSAn zUTnZUjuGw4evGmyaPeoCK4 pDDQftecfEFBltV5mEKBqaN GrqOwmLV4rOKKytpedj382O iAxMHB0 XVAnhVVwF0DwtW2wOrNcSMI cZGLfR4EvjUVgWWazJ601GP uuWsO9ULRgcpVbX8QfXVWwu WduOiB0 f6H9Kk5Ul7QkphzcJ5OidEW jDjIsCgmnSHu4B1UsVwbcmZ I+HB95UFUySW33UPs9DSJ8e WxlPSdi YBJcU8PjgT6sZgRoXPPvHVJ kOyc+PHRhYmxlIHdpZHRoPS rnYLSpCpIsnVgzDB4lGl8kJ GVyLWNv jRwyhIZiDhFyk4mwYWUuRVn fUI6glIhiI7YzkFY2VMNxh4 u6Wd85T94vA4XkoCP+PGNvb GX9lPO9 oR6tAfJoCdL7XWhdY539HtG cjIBhRjifa5rpq9lxlJi8Xy M1LIIozbNghEmkPYW3r7OlC x39F73d IHdpZHRoPSIxNSUiIHZhbGl dmh5ytC3xPm6+WWZuoJL8rR J3wL0kZjXjJiL6DCkvS251G nRvcCIv Jpxyh0xga1popLy2ZpWrDMC exuCkhPzaGNZ2x1PzFl12Y1 UurSvsi5QgSkk3lf77yZEyt 6T7zZX9 N5PhRXXznpixfZHzqBpgIE0 oGPXbwtwuMDTqtD4fYRLoK9 n9AoWpBwL5BWktH5HtmoR2Z GJvbGQg PPCfhXUDlX6iyzgnh7nioia nYkAbJCCrACg0UDx1XSMlgZ toUxAkRKT7PjA3ZOX7ySRyj Y1jlIyk nypkeU5pHaq+AIN1iWMiqCA HDM5wCwvpnKL+TSIrANG3rU jaZQlzXMSyyO3jSYDoM3o9F iAwLjA1 EYgkG7IayqL7AQXasIJqSIU acRIYzS8amzeue8ucthzxQg QsMTVvGVz0KQj6GSJopXnbI iBsZWZ0 KmF5PTT1jGAvsF6frIibznu zmK2uQlz+OghkoSipRHK6VS p7T1TrDkn6SZJlbOldGR9az GFkZGlu Ju6mnAqjeKpnWT8cAPZlhzw bb032IxNjr4phJNHvvTFwPY zqJPU8Q99td6D7ZFSgDBDeJ AP1cHI5 pI8ctNxtysggsEHtyBtsihX uzRvgSVnrRZydM102MGYpcX vuIvRtQFm4Q3EwIbr5VGZda SvbCV8a wLAkDBygNg2zcMsufZarCK2 uKQXkvndsu590WlWxn4wrAD CjdMKpGEssJKQ0E22tl4E9S CMwMDAw TJP6jEM4tO9obWfxmyqeeWY mdDsgdmVydGljYWwtYWxpZ2 77WGDstKvyXcUcbRv4S1WtS dk4JNAh jEojRZ2ioUWdXNzeQk1ezLp bjZxeVS9eEJXustfuq056Mu Ege1jyJKZuhNQuQKisXBE2B 42kc1M0 NGQzNFUhJOD4nJN8kB3emBt nbjogbGVmdDsgdmVydGljYW ilDAwrW441HHBgnKmxLePpo GllbnQg VYrkGUj4T9YvVohxeVE+PC9 5VSUwRC76fMVqvZVbj4dhpY f8TxIcZCAnKUB5yQliEEnxm 3JkZXIt B45lzCDri3Y4QYUqyMovwVH aRwGtxAZ0oF9vTAqngocmz1 cisxbaLdehw2qrai48cL24G 29sIHdp ZHRoPSIzMCUiIHZhbGlnbj0 dxT1xGn4+TMZelWE0iIP6pK 9eDRScZiS0WFinD298TsKfg CIvPjxj g5dkz0bbhFh9HaL1AYWodrP ivTmgDVE0e6BnTi29D23yWS dpZHRoPSIyMCUiIHZhbGlnb t5cfH1f Ii8+GUWcvPD7kNS3gS8eLeW rRmJ6BTikL968MlVdvRNwYj kmI60zU3GocYM+WYXnRuc0X CBzdHls NR4kbPOlXVfeNf3vBBY6LoK bQbRvXCzuW8IbYJAvkhynue jfqMV9YRJzZZOliC78Oi9xi DogMTBw nQEOcJ5slkrxd7fbaqeyRgB pGDDaWTh1ZCb7TBRclVdoYb XaXVO9BvE4NMI2aDOwkL8lk Glnbjog hQ1sP4IfFPMprpsdEf49fN5 dOeFoQnZ3NQotPtt+Q1JBV0 ZPUkQsIEJSRUFOTkUgTUlDS EVMTEU8 W1IqImi6VIJwpTrrEI3ofUA dPKjiQt1bbKbkdWmyFZ0lWR BiesujQASpeY8cCWKriEHun NreKU1f ICDporgls655KfSxMYF8DQN muWJkN8HyhN2xSyBeYWGzJM MmG5OdqAQdQVvyZ114KSzrX kQ9QJWi wbKrD2KfVTEtpCxmMtX5w6Y 7Zu8nVx5nAL8cPMy7TM60QT 11nFChh3R0qZG2N0LqEWCeg mctcmln aYQ1VOArRBBglB76uCBkWUb dRw4yp8T9t346DFSvHZWjzI 19Ds8ixFysETDxwOOBbM3hm zehc3ca qiedQvWgAAOiKIn4PGn0YVE qrVyzTpGoDJD2CtU1IHB7mO YwzT0bjRxfqpwgcO3cNjo+M jYgWWVh tyE6C7UhFll9QXCjrXsaPK6 kuLHeYLzpCz9nhOjkpAheBD 7oPIZadbmhAUYkkY5mHAPca HRvbTog DJ1eYREmtsryv229ZsWmGBW 4XGBelJVqG6AcsM6wIoWuDV EkIRWjH8NraZIlFFctE710E GxlZnQ7 FIQtjxOqX1OqSKQzpPkbAxN 5s7Q8Gz9RAS2RXAC8V1EwFq k8FCCqsSfnSO9psSIvFWfrW m8gbOiv qGolJB5yVINtroybSHHxpF6 aPFFsyLHncVjiSJ3lMHNtza kxd895SjTxMVI9XUTjdUChW 2QxpP5y PlDiCRZfSTKrP0JdfRIhIHo mD133SGykEsJ6CXJegoLaH2 ZyIIZwiZfwMiJ5v4B3Vm0GG DwvdGQ+ RB65ts00W1UmBctmGml3XLD qEYJ1iXF3yM7bLGShYZoyv5 B7eYW0A8CjsgXacy7bx7pkR XBzZTog T15kuJJvd8U1NHFekFA2KBS ewVutXdIsyF52Qey+PGNvbG lqw3MrDapvw6giw7cxtOr3Y jMwJSIg hoRnyMaqAWD0a8GaHn41M73 sIHdpZHRoPSIzMCUiIHZhbG fqdt5yvX8gKq3+COBvpQR2r QM1jC4u FuBqSkA7WZbfD416GxFnsFJ sImizq3jwe6yidXd2DdVsMO GmgmOjyOwnUIQ4f8XxPv72D 2NvbGdy n5QqGgj9dr35zVJhv2R0fCR 2W3EzWECumjcnoUJocYqlEV 9wICMhmdubLJKlaN7mQDZcQ 0b2NzRq ThG5MYutW4WpptV3WEGqcDM cPIVoiKJOxS5onlayz0ftph vkRxLeTUNfZWm9OWu4BEZfx WduOiBs XHY1TpF7KAM4wWIbyL5eqIh wheuuaL2uKzk+GUx0c9xtnG CjOW4iiME7MM00VE88tDCrg 7J8sAK6 L7QzMCPlfefxbvtxwEG5FOT gDXQmoF73Aj4nhPvhKz7nLP QpKDY5OCOivNRlS6EprJ1lT iAjMDAw BDYkO8GsgDNmJElpH847HKq dTxE3GKIxpvVlL0UcAQOchN nuHiX7i0H8Bi6UZX44HI90Y C48lSCc d1B5iYJ1N7AxWKKwgbvhseh yqTR7GRTxRXWklS53Qa1qwN ieHl8yCQKxRBG0UCYkbZKtF 5SmnY2q GoJeVCRsXBLbM8YlhAZqMKp jG690FIzxDxD8RSXfgfAwY3 WxXKRzzRxtCzQ8z7F7Jq8MS j35UM47 WE25lRJde2Y1jCG8Q4LfZLT nuywszsluuDI7JQKrOEWiaV 95Ev2gkTzjYq2eHAUmWDU4Q FRpbWVz E5TolS8nFvKbMUPzRALdW2U vfUGkTCgvI836GVbtLwR0YY QcltOqZ1SaHRIbuYabYfP9h 9H5Zs2L HDtbteb6Q1DqCrnuqKY+PC9 8JOBuZD50yZGhuAFeh5iplH i9LaZmCROeGVX0tGyiEEcgx 3JkZXIt Y29 (more content not included)... [facility] Progesterone LCon 03-15-2024 Progesterone LC 1.4 ng/mL Invalid Interpretation [facility] Comment on above: Result Comment: Foll icular phase 0.1 - 0.9 Luteal phase 1.8 - 23.9 Ovulation phase 0.1 - 12.0 First trimester 11.0 - 44.3 Second trimester 25.4 - 83.3 Third trimester 58.7 - 214.0 Postmenopausal 0.0 - 0.1 Performed At: [facility] [address] [place], [place] [id number] Sarah Beal PhD Ph:[phone] Performed By: #### 3 [id number] ####[facility] (DEFAULT)[address] [place] [address] Provider Orderson 03-14-2024 Provider Orders [id number] [id number] TGTIFF [facility] Coding Summaryon 02-20-2024 Coding Summary HTMLBase 64 CrdntkrkOAr0mKx+PGhlYWQ +SD2HXZDhS46ekJUulK0kD7 NMTElOSywgQVBQTElOSyIgb fRvXM6isSCgPVEw IC8+PR2nLXXoLxitySThm8N 6kUH2K03kgj0aUJpioBP9NK MaPgEakmuup8clySg8ULbzZ mluOyBt YVIzhE52DVZ4uF99Ta80pEE heJPfp9ofhCv6WcVfPFBaGC D9rCivFZeae6ZlNUZwB72gc JVtg1R0 JFQygQkprJIpBhAemDX5cQ6 vGCorxhdxk4dgxbsmNhw0hz 38oAQke3P0fLC4F6HcubK3I GJvbGQg HjrkyYKFhA3oxnkwn5xjiiv vItPnNJRdWFv3MTn5COLxcL hvZnAoRQ72JEC4ZJQrpoNoS 2FsLWFs oFhcJnN4s6N3Vf9OL1RNInd tF9KJEFHQDAtgtLP+PC90cj 01O8WpBtfpZnp1ROOyDJI1g BP1gJ8n EXWbPYgsa4F0jHR9H5DnlcQ frb7jp7woFYNbTTqyZ92euS Lpi7K7ZFBliUW0CTQhdInqB iBzaG93 Oyc+CLXscUkio5PvRcsyi3z zq6tzcUf1OhtlDHNxcaZluH qsJDM2w5QkVq4lXIHvnSF0h LR8xT1s BzFeXqL3HWvoX751IoAlnWZ kNpmsF15aM1XmbCZ+PHRyPj a3OMQzhMeyOS6wX9EvYNHky mctbGVm iRmoHC1uXQWbrkzmMJVfiQ5 bOXTdB7p2GtExArS9QRuxO9 DjXCYpvsxqEi11lI9iLiSzL tW1DWds F3EfneC8WZGdvQExUKufUVS 2A09cs4T6EBYxLERnROP3kM J9eC9knLwzpzwooDHgmIkiu mVydGlj ZFlrIJsfV836EFFzvJcoSbA vZGluZyBEYXRlOiAgMDYvMT cvMjAyNDwvdGQ+PKNgXCU6p WxlPSAn eHZoZQuzKx3apFqurIpqBS0 hTPOywustEFUmfN8qCJRueC IzjXzqMA6oSMKhubzej713G iAxMHB0 BZEipFDtY6BflW0fYwRvBTK rDDBdD5VdvQYtYTiwG413BH ljQyK2IDJrrkEuS4DlAICmm WduOiB0 a7T9Yv0Xx0IliiafV0MgdET eGmUdEskhKJa4W8GiDwcvaL I+FM30TVHiCE69DRe0MYX3b WxlPSdi UBAcI0DpgJ1oMxLdQCXoZFW kOyc+PHRhYmxlIHdpZHRoPS yjDTHlLdTmgClqIX6jCk7eI GVyLWNv aMwjnXIiOyJlf4imVDYsCRn zBC6qmIqoQ9AskLY7MQMsp8 x9Gi32X69bX2NimFM+PGNvb LM5gOB1 bI6lZuGmGgA6XDfiC560SmP ytFYeYgzra7wel9xxxUb5Qa E6TTEqiiWjwHqrHWM4c8OrU i75T38d IHdpZHRoPSIxNSUiIHZhbGl bem5krK0hOp3+KDYdlDA3cR P7kX5yHpOrVuK4TZjaT728N nRvcCIv Defit8nhk3dvzTv3PjDuLZJ xesNpnHaxJDR6n4IjTl21L0 FscOkdq2IoYat4ao54mCTbm 8Z7bAK9 N2YuOBJlqlqwfWPgpXeuVB1 zZAUpstfiBWZqsB5pPHQsX2 v6WtAsFyA4NKbaD4PhyxO0U GJvbGQg VUZgmJNAsR2phcrch6ckfew aAoRrCWUsVMm4AEb1AVKtcO kaZkMxKHT4MuY0MCB9aAPcs R4ilGxu ennleY8qAnw+SWM1tOGqvVC GIE3pZsstbSG+ZJFhMPK5cF vgELzoXRWorU5pDEAnK5p3V iAwLjA1 HYthI0EqnpN8DOQqmLGqQDP wyJEFtR1qpprna9bbdcyqDy IiKAFbATj3UYw0AUOnzPohU iBsZWZ0 DmK6ERX5lZAxiY6vrLwdmsj fuE7kHvc+FtnbcWcmNCQ4AF y9N7ZjPgi0JLIylRyzGR9ip GFkZGlu We4rrZjwuWnaZA6nBDRxwzp ld405OlNva2ndTDAvqIWuQK zwZIB0K40cx4A9NXZuHXPgO FE6bNE0 xG9hmJniqcumkYQgcQagybY afRidVEyeOAnbL126MRXkxV weJfKlADg8C0OsTaz1DUOvz CwcQK2s hTCfXVocXg2csEfrpXfeYY5 rBWDclbpfe906LgEtd3ltOP KmrBRbUKzhCTC8T85yx2B8J CMwMDAw KZL6wIR7mI9fjGrseccoaJX mdDsgdmVydGljYWwtYWxpZ2 32KEBcfAvdKjGwjFa6B2ByG fa7HPGz xTpyOQ6mcUXlMNsiYm1zjQs pdGyyKY0nMHSdsadbs146Vf Osy0nlFCLgsXDyLBgnYAW9A 08wu5F2 FIPiDGEuRTL7vVG6iT5dfMm nbjogbGVmdDsgdmVydGljYW ayJTlsV506XRJhmIntDrSmj GllbnQg XXccMVu6N6VnOgzksPL+PC9 7CGLlIR87lZOubCVms2xsxI u9PqNyFYIfGNQ0vJbtMAiii 3JkZXIt G72jrSMpp7E8SOBimNzpnUB aFuUkoTN1cR9vOKamjuqdc4 pykjipIngmk3qnyy00gX43D 29sIHdp ZHRoPSIzMCUiIHZhbGlnbj0 hyW5aLc7+YUWcaYP1tFI2vT 7kBAQqWeJ9CKfoC035YpXje CIvPjxj r6lso5idhFj6EvA1WKVxrjQ tvEyxVTW0y6VpDf92K82iIL dpZHRoPSIyMCUiIHZhbGlnb q2bdH4e Ii8+AJGucWV8bTB7tT2aBcU oPpZ5MEgdQ968EsXakNBwTh yeM39eU8BpgFW+QNPyRzf3H CBzdHls GV6ssLBbWZggFq7bMTN2DjM xAcMuDDptA8KbPMOqxymkta ryaUP6MMMkBAKnvE52Yi8do DogMTBw yHKWxD6onezgt9qvqueaCaN pZJYuXZl8UAl4CCHmiUeqJn JyVAK7SyI9WGD7hTLnuS9jf Glnbjog kX8eZ3BxMRDsymucVj99vX0 bMxExFeF9MFtdCuv+Q1JBV0 ZPUkQsIEJSRUFOTkUgTUlDS EVMTEU8 J9XeRxm6SIGnhBkzQN2vgHV cWQpyDn8slBuyuKwbML1mZD EccrpbESEhcO4fIGBthGYkh PeiRO7w LOFygpqlt038HoKoIRB2PUT jdMSgE1LuvC8qXbXvOHUuNM UvO6LnzXHiHZtyK101VLznB pB2PAUp ieEwS3FfCITjnZfqQfO0g0E 2Qr4uDx1lNX5sPIr6IF56MB 40cUAmo7U0pSZ0K6QuXQHzy mctcmln zXT5FZVbMUSgqE80iWWmGEf lAw4ls3H1z920BBFwINXwwU 07Zj7ycTkbNCFznDYMeF2qj olzz1pc oeozEjPdVWFcHCt4DNm5EZH onEmbHwKjUVS9GjN2MJW0fB OlfF3ezClsrhbzdW9tTem+M jUgWWVh kkS7E6WpQzw4WLOxqCxjAP8 fyTWcPPgcBq0rbKoqkIjaAI 6pGLRwwbtwWVOitO8uWORtt HRvbTog DH4vCFIfmsgfs490JxNgRWO 6NQFmhCTzO3PcfV0rOcBmQA QlUVXaC8MndMCmYSowV702B GxlZnQ7 YAAtguKkW7MjCMChkOkgAkE 8m5S3Uz4CYR8UDPS4J7VqSk r6MWLxrFsmGG4uxOGbMZdiE r1xwRvr sBxcAK4qBDJlumleGJJzqY5 jADZzfRVmtCvmIE4uACGarm vkl587PpRtJBT4TIGvbPCqM 2ZmoO6v DqVzYXKvWMOzQ4IxhEVgPGp qC610BXahFgW8BEMnhbAzD4 QqITAafMglEjT6k1S7Mz2MJ DwvdGQ+ AC62vs95J4ZxImotAif5CGG vJEP1bPH7jK8uFMGfQMkll6 D1dZL2G6EfhlMhds0xa3grI XBzZTog O21axVKby0K7FZHauJU1GIP lpXxaQhFuyO53Jmu+PGNvbG ozg0LbGbctn6esi5iqsRb0L jMwJSIg lrZyiSqwMWT2m7VkUs99H71 sIHdpZHRoPSIzMCUiIHZhbG eqxs3hxS4xOs2+SCBgnUL5a DE5vB6u GaLbKyR3HZxzQ838XwLgzUI oXjyww5bql7hxuCb9SzHiUP MoevLqbHawQPU8c2NjXr08P 2NvbGdy w5SnMan2po26yOJgf6O2xNF 6X4PeZTHefexbxOXtmOjhQR 3hWFXuofluATJpaA9kDXCzJ 7f3UxYr MeZ3BEgvQ7LujhJ8GQCpyCE kPSBnbCTFlE5bvdazf7wxcs stEaMiPUPhJMc8INf2UGAdy WduOiBs AFW3KlJ2PKV7xCRseB7ofDk jbgwkmE0bJrm+KUt3c8nmdV ZxRE7euAY1IV62ZP90fAIbe 9F6fLC1 F0HsXERcdzzjgcbzbUI4UUT qWGGqnE89Ib9snVvvDp7lAN SxDHU4TEEsvWNyO4QadF6kM iAjMDAw GMHbD8GhtVAwPBllH797XPh kNjG6GRFjhuGhR4BwXVQafH xrCfJ4e1S8Cf4BHI46OR25L A57gAAe i1R4cTQ6L7DcCXNqwcmvlnk cyXE8KPIrVUEwhZ02Yw3yuT ucGg9nZOIwWZL9UMFhxPYkB 9RitF9y WkQlAFVaOQBsX1SprPPjWEi oT359KAduMrI6RAYoneIwT3 LrBXDnuXviRwB4m0S4Bp2SG x06KX33 QH69uDCys0V7aTG4L3TdLYK ozyermlabxGH2MPHuYZGpoQ 67Eu8frPpyZe0aKBRaUFJ0Y FRpbWVz E2GjzP3pBmCjWPDsTQTlI7R hdLAiYFfdV520RTysQyE9HO RxysCgP6JbCYIldNrnFpY3j 4O9Jy1Z KSoqyre9V2LmYgpejWT+PC9 4BFRvPJ18rJOdrBAtq7jfuK e7VsMwWBClDBD6cNxcUQuzl 3JkZXIt Y29 (more content not included)... [facility] Progesterone LCon 02-15-2024 Progesterone LC 18.8 ng/mL Invalid Interpretation Code [facility] Comment on above: Result Comment: Foll icular phase 0.1 - 0.9 Luteal phase 1.8 - 23.9 Ovulation phase 0.1 - 12.0 First trimester 11.0 - 44.3 Second trimester 25.4 - 83.3 Third trimester 58.7 - 214.0 Postmenopausal 0.0 - 0.1 Performed At: [facility] [id number] Sarah Beal PhD Ph:[phone] Performed By: #### [id number] #### [facility] (DEFAULT) [address] [place] [address] Provider Orderson 02-14-2024 Provider Orders [id number] 211 [id number]#1.00O TGTIFF [facility] Coding Summaryon 01-19-2024 [facility] OoorirhhWQb4pFg+PGhlYWQ +IM5HIJXjU55pxAKepV0bZ8 NMTElOSywgQVBQTElOSyIgb zFoOT2tnPWqAMRj IC8+YK6sZLDpBwzloJUhy8R 6lPQ4J47pfb2fWCmstTW3GE UbGePaelgoi8ylzXm6BMemT mluOyBt FLQspQ67NKE3kS28Uy20jHG waLKfh2iiiMp9UrYxRBAqRJ C1mRltADvgo1MtKPWmL18jq QDud0U5 SOEmwWrfiUShRcPjkDR2kA0 cKDwfsipao8njnwbgYpf8ug 80zITyi7L0wUO7N8ZunnH5I GJvbGQg GeyahHXApJ2uqzfhz8tatoj eQjEyAGZdBXb4WAc9ILOgbL omIqIaVE71XSJ7HLJlyrZvC 2FsLWFs oAsqYwE9r2K7Ko5CQ4JAGwv bD8XYRVWUWDvbgLU+PC90cj 56X3CmJpdyOrg3HAIuSCD6k FF9qH2n WAGsAPexn8X7lSX9C0ZtreP adq8yc3pdVCWrNAozZ17bcE Ren0C1XEGyuSA7RCAwrRpiR iBzaG93 Oyc+ZMXqiPmol7HiBjzbn1w mx0yyrSy8SvhqSLQdgtHjmM yjHIK3i4FdRj5fVTDflZW8x RQ2rP0s YwYwCeY9KAxnC709KvUrdAT qRlotX15yA0RcxDL+PHRyPj z2GAYleBzvXS0mH9KiTCHpv mctbGVm sByaUO7yYYUeemgjVTVooH5 mEXNfR2u2MbInBiN1RHgnY0 KbDKKjyhwxGa70nC1mKbOvW iY9FAxu B0LwdkD2YHVelBBzHCxoQUB 5S37vo7T0NPYoDTAzFQN1vT U7bL8dsRncgljzbLGxiQtsk mVydGlj ZBlrBJgfZ967KEQnsXglAoM vZGluZyBEYXRlOiAgMDUvMT YvMjAyNDwvdGQ+ILTsPLJ9p WxlPSAn qLMoFMqoYt1mhRorvJwmFY7 hLYKdyyyuPKTfnD3jIFEyiW XzxNowQW0hHZAmqugzk452X iAxMHB0 IOQegBQkL1SnkR9rUqKhQKV eRJWwI5KnkDWyTQzgL533YF dgFjB5IEQkeuBaN5RyVEHfr WduOiB0 e5N0Wi0Wk6SzfnqqT3KshAQ jGcJvCdrhWMv4S7XiOcvgkX I+KG63DZBoYP61VBm1OTS5y WxlPSdi CVZwQ0WidC8qHjJvQYQnAGN kOyc+PHRhYmxlIHdpZHRoPS bqWZDnItXmmXraCN0cLy3eI GVyLWNv iZrddPQcMwGfo2xfUZCwFNq mUS9aqPqvB1UrtWZ3SIZev1 m7Ed00G11zL0SolPM+PGNvb DR0rPQ5 zC1oXeNhWsT6WXcyJ147PxB kwDAuAusrv5hqu5buzEq0Hj Y4WDWdocMwmSewZZU4j7QuT h84E21a IHdpZHRoPSIxNSUiIHZhbGl dhy5koU7gJt3+VXUlsLT2pO D5aM7qUcJuTdP1VGziY077Y nRvcCIv Rirkx0mui0lyuFq1MpBiDZA ivhGwvIlfEXG8h1QdHj08Y0 OgmRwui6ZvGcr6rx58zXFvp 9W0jYY3 Q7DzSQObxcxolXCcrDwkLU5 xIVQyoqddFUBvkA9wSWHxA8 k0NuPtWdX3JMogX1XcljW1Y GJvbGQg PCQclMGOlJ7tgiyoi0wekwp wGlQvTTVbJHq0CPe3PLYybD tlIlEnHCL5FtU8MTO2aYSgc C7zbSqw yjufiQ0yKpz+EST7bOCgqKS OSB6aUmzuxBZ+CGZyYWJ9xQ mhUEruEWZqwR8kSHFkB0t5D iAwLjA1 NXzvS2AijoQ6MCFhpINpISB rdDFYaG5evlqxr8wgnmwkBs ZvVLGuTXu4RIo3HIExwSfcH iBsZWZ0 LpG1RLN4xOVjsR5nmAktyvu zuS1uEqh+QhustYhbDCS4UT k7U2FxTkf7XDVkfCeiSO6cb GFkZGlu Ch8eaVfuoPvlUW8dVPGlccx dn237VdZkd3qmVBQzdOHyXJ vtRIN4M54dj0E6EFEoGGKlC DM6dZV5 kG7hzFymnjyvtYQekSstkwX vsLdlZFziDIzrY734XLHpeQ trXsBwGRc6M9AuCei2GWEzj PfiEK4b sAZqZSdfPk2jpXigrQhfAW2 wSTUyqrtpt302LyKxh2ybKL RqgDUiVWjrPIJ4O54ra5N5V CMwMDAw NSN2pET9iO3xvYkmmtnaeUI mdDsgdmVydGljYWwtYWxpZ2 19UWQeaOefLkVtvCx5B9HvW ok5DDWs jQzdYU8zmLTcFEtyRb1tiFt xeSyqSZ0kLNTpveosn156Yt Hqj5aoGHErmDBkKGraJUZ2N 80vj1J8 PDWfTGPxLUF4jPP7hW0fbBr nbjogbGVmdDsgdmVydGljYW wnEZvjR538EJLfkImtKkIvn GllbnQg ZWvuUQi3M4EsUuxjkTF+PC9 7LRKgNF10fOEgjBKsv5wjkZ b4CpVbXNIsCBE2rLrtROxxd 3JkZXIt X09txZYer2O9OVZnvOoomPR gFfPcjUV2wG6jFNkthumqr8 mcfsfcKziep0wwrt37nQ28K 29sIHdp ZHRoPSIzMCUiIHZhbGlnbj0 vtS6oYa6+TKKphJB5jPR6bD 7uLVCnZeD5ZBvbF524HhIkj CIvPjxj j0lcc6foiEu4CcG9ZWIuchA poNpmJBW5k8WiHt45L38kKQ dpZHRoPSIyMCUiIHZhbGlnb q8stF2n Ii8+UEPqpUO0cIT0wY0yDbP cXuI9HPjbC422FdQkdPRrNi quT24zH8PdtIL+VSUuGvr5M CBzdHls HA9nbFWgWJzkPp9sQAG7HdI fQiHvJMkwQ9XoXMYriyhnym gkdCN9AQOzFTMscJ58An3jk DogMTBw mUTTgK6cnbvjf4vduavwOkS uQSDqIGq8ALn0AHWalGbrWc AaSBK5BwK9DZG6lXDgtQ7hm Glnbjog aW2lW2XgMFJulvufEp50yZ2 mUrTvZtT9EOulCsw+Q1JBV0 ZPUkQsIEJSRUFOTkUgTUlDS EVMTEU8 E6PyVdl2RWIhuDbgQI6lwHB jZOzpVu4iiLaqrEdgZB3iCB NuyktjPIRllV2wYCPkxLDvq OivEX6g MQDaerliu615OdAbSDZ1VZM gtSVwV8VxyF9wMsVbBIGeLN ZmD1UfdXNrQKogO332IUjbR xJ6ACCk vzOrI9XyWGEegRasTiK8j5S 9Ak7kUz6pWX3jABx6IC87LY 58wTRar1D1yZB0A0SbHVDjk mctcmln cOD8EPXyAQQmvO68iREfVJy lCq9we5Z5t590ZMVlOCEltV 23Lj3srGygEIXacIQYvV5vr ugyw1tb allnDyUwIOZwNWs0JRe7NWB bqGxjIlCtPPY3VrP8BNO0eL XkdW7xxZzsxyjbaC0oWbn+M jUgWWVh wwO1G3OoFuy5HJMbxUcmIG8 yoQYbNBkkUv3dxQrgsHrlRH 2gDWQupkcfEWZkeO0aEXDjn HRvbTog JH3yJGJahvicp014JqDnHJC 7VYVfeKTeF6DjuP2sYqOgYZ HjWUXgV6GedVCgJRoiK768F GxlZnQ7 TKXmlxRjM4XhIVNrvZaaFrL 0q0I3Th5GMQ6ILXW3M6JuXa g2PQBrrFczKZ5asMKnCVppF w9ouNwx vIewJR5pXWPpeefgTKIitI2 oSOOroYUelKnuHW5fIUCvvm ntt258QyYtGEY7HEUlaJGmK 1NaxH9p PwKmCXEuUJMeL4WcnIGyPUq qB918WWlkUjM5ZEDwgiEpG6 KsTVSyrHjtPaC4f7A7Xr2QE DwvdGQ+ HB82ks99Z7HsGxeqErc1JEV oRNM1lPI5zV3jRFAnKPmmq1 H7mKT6D0BcjqAojx9ow9hhS XBzZTog K89ysPHot9B0VQBvbIL8PGD nxKuiTqAjbE24Ifk+PGNvbG zcj7GbWrjnk6ejx6otfUp5Y jMwJSIg ifMouTzsVKG1l4ZgZn33Z61 sIHdpZHRoPSIzMCUiIHZhbG gprq4kwA8cPl6+JQFvnPZ9o EY0cW2v ZrGjNwJ4NDanR402AjFvyIM wUeoxe9cpz7dhkPp7GkFaOH ZnviDgyCgdCQZ0k4AoSl56P 2NvbGdy e5OoKwi4fj59qHSix0S5zZG 7V0ToJGEgpiipbCZmhOwwWQ 0bKBJieaypTLYsyW6bUVBqO 8a7SqKp OmH3AOjiR9KbtgH4CKIozAG kTFStzOMSvZ8glglkw5bipz nqMcIgMFNxXDi9NZk5RPJqp WduOiBs PKT9MpJ9NJZ0mMOkdM0ncQt ucdcrrW7aOcq+CWj1t5mjxY OqSW2ibVY7SL46CL41sPXxi 2N3wLU1 E7ImVJEpqjxjtdsjoRL0FIL hRWShhQ54St8ajPyhRi4oLD YzPNL0IPQzbUSdN2PznH0pQ iAjMDAw YVWeZ2PmtWFiEJnpO200MVo wHlK7OXPcatPoF4ZtESQzbE ikZwN0i6R8Sf1PEY52RR52T W01gJOo y3Y8rAX4B9OsKJAxomypwxz raIT7IULkYMHhcL99Yn8nkJ drHs2yAPNvXDV5SCFgsLGnX 4QwbQ5e XbKdYPJvMOZpG4SufNUeQXv xG893LAnaAyC8KRNlwxKfK3 QqKYLacKrgEhX7p5W1Ag2MZ i46WQ69 GW77jUZis5N8wRH2V9XoIYN oanopalyqiJR2OVQmYDCijR 96Ee4nkDcgCs8yXCFkIPC9X FRpbWVz X3CbvS5oDnVwGJDsPSTcA8B axLCvIYivT178TVaqRkC8XX EishCbI5WlOKMjaTceRmW1q 3A4Lm9J YSbbcun1B6PgIqioqCE+PC9 3IIKqNO68iTTfwVLiw4dmdJ p2JcDjYHTbKQT5xWudKOqrg 3JkZXIt Y29 (more content not included)... Normal [facility] Progesterone LCon 01-18-2024 Progesterone LC 14.5 ng/mL Invalid Interpretation Code [facility] Comment on above: Result Comment: Foll icular phase 0.1 - 0.9 Luteal phase 1.8 - 23.9 Ovulation phase 0.1 - 12.0 First trimester 11.0 - 44.3 Second trimester 25.4 - 83.3 Third trimester 58.7 - 214.0 Postmenopausal 0.0 - 0.1 Performed At: [facility] [id number] [place], [place] [id number] Sarah Beal PhD Ph:[id number] Performed By: #### [id number] #### [facility] ([facility]) [address] [place] [address] Provider Orderson 01-17-2024 Provider Orders [id number] [id number]#1.00 [facility] Coding Summaryon 12-21-2023 Coding Summary HTMLBase 64 XqyemhreBBg8mBo+PGhlYWQ +ET3FZFLyE02brMMtiQ4tR9 NMTElOSywgQVBQTElOSyIgb oMjCL6tzEErEAVb IC8+ZG6oGBCzSjjwjQJmy6Z 1tWS0X23ole1jWTremSK3SM PdQhExgxfzy7snqFz1NQhfB mluOyBt LNDtiU81CFQ8wA21Kx52nTK isVSgj1ztmCt8NwVmKVVhLH R3iBqsIRexh3CjINJeY50lt LWvz8D3 UYSmsZaxfKFhIqQkaTM8tT5 aYCpxkjcua3vzpqehOrh1yl 48qACvt7C6rCO0J2NjmrA4T GJvbGQg FegeiKTCoJ2nrxeob3pmpub aMiEhGXGuCYc0CSo4ZIDrwD bfBhMaXE11FBU3KIOatxLbP 2FsLWFs pKjpGvY2t5P0Yu7BF0LJDfi kQ4EVGTWIDPjghTJ+PC90cj 34R6QrSbalTku5YWIgVNW0c SA1sV6z GBMyVLpnr7T1iIO0Z0NnxbL ccf0kc8moBFCaUGjdN14pkN Fup7N9GZMflLC4VRTloEztI iBzaG93 Oyc+OOThhPeab4WiLlczz8d kb0kceKi6DehjYQXiknEnqT cdNFW4m2GsFr8tWRWhdNB1b MU5vW6z JvHfUgD3ONhvX891YkFjnHC fJnhqG37cV0EzlUV+PHRyPj l3XIFekIajVR5nT0WeWEZdb mctbGVm zVoiGL8eKPEhztxkGSKqtP1 fTOCgH2v6DcQmLjR5PHmkJ2 SvVWMgorvkHi19wO5jFmFzO cG3BMhp F6QgjtO0KYMnwCOfPTjwOBQ 6A94rt0K8EQUlJEQqEBE1cB Z0rW7svMyegpyvwSSjkBjsu mVydGlj UWkoDQbhU583ZJQcwFteGzT vZGluZyBEYXRlOiAgMDQvMT cvMjAyNDwvdGQ+ZNMdSNN3w WxlPSAn zHBkGZqbHj9jqXahcExaZY7 hHFQdczhiMVLqnL2vJESluK BwsFamYW3cEOXiwmttk317S iAxMHB0 VOAusYZvP3NuoB0bTtHmCXB aSTNwC7YucIExDYolQ890HG duAoF7JYHdblGoI0CnOMOhg WduOiB0 y0H6Xc3Br2QepabjH6HvtQC cSmQxPfopSJd2O6SpRrfdhB I+BT69SOKiIX28GLi8EIE9c WxlPSdi OIEhT9FuiW3oEgNbEXGpTUO kOyc+PHRhYmxlIHdpZHRoPS lzTZEqQtXqkAtzLI6vCm7sC GVyLWNv zAhltIMeZfLiy5clKNZgASl vLG8mlWzrC6UdmWA2KIEur9 g8Sq05O39gL2PynVI+PGNvb SL3nBI7 nC1nAjWeIuC0KIduX588EpQ ekODxPkixq1zua6zbdLm8Se X6OLTtahRavHsnOMP0k6XaT g52X92q IHdpZHRoPSIxNSUiIHZhbGl pfu7twK9kWw4+VYOklIX2bK Z4uZ3uYcMsUkL9ZHvoR263K nRvcCIv Ydzvm9jzm9kfvFp1FnAdZJT kimDakRkxYAL8p4ByDu45W3 KpnYrns1CxCpx4dp68pGQmr 1T5mWY1 P9GrWZEtiuryqPHnlBqqGK0 xCBGnjqyqRYObeB6mPBWzS6 e5AiTpDiT1OHvbY9ImqmI0I GJvbGQg XIXndAGZiV5odzcih9kcunu iBxUzFDPbOGm9KPz9WKXjrU xqLnOuBVV1ZoP2UFO7cMQgf O5fnGfh xifwoS4zDtb+NMS1tKDwbKF LZC1eMkihtIP+ISOaOAF7wB fsAUwxOQJugM3kYJJcD0i5J iAwLjA1 RDxvY3YslbC1HCGdlVWqYOB olIAYeE8lmayun6astwtcKg NfREDgZQj4WXd0MGTjpQrmM iBsZWZ0 TlS4WSQ1hXLgtR6muVkbmxe ruG8oMfo+YegkuWyhFQU8PB e8B2XgVxp6LGBmyUwkUS4zd GFkZGlu Mx2fvMdjhPxeBX7oPLVpgxn gg439JjJpi4cfVNXlpPYwBG wsCLF0O34in8P1XKBdTKFvB LE0uYO1 uP3uvVemfscomOIjkOlklzL abVvfIDhrOJefH666GIPlgI yfHjZvBDo2T6UeIbq9YNFyg ZpwDK9u xRBrCJpkOs1ygLosyUbwAL8 nZBIhtmngw495PzIch4mhEJ TkiAKaHYchEBC1I79ux6B5P CMwMDAw VOO1tIW4yI7wlZvzkxvloEJ mdDsgdmVydGljYWwtYWxpZ2 33KIMfgLsnNtBguBy3J9XmT se8EZEa oMijJA4hlHNwGRqzBe2wrKn fzSbsSX9oUDQuepbko033Wv Agg1qcKNNwpLDvOIilQXU5W 98de2F1 VYHkROPpFQE5kMV7oH5qzNr nbjogbGVmdDsgdmVydGljYW arUOdnI511WRJjiGrnMaXnn GllbnQg ZJsnIUo2X0MbPwqvxLM+PC9 5NEUeON17dBApcBNze7jdvC g0RyNzOGJdPGX3oNwzUSazi 3JkZXIt J17vvDGtq9Y2CDMwoEdyeDD qIkQrpRR7pU5pWVelizzmk7 bhsgewAvglo3xnlw45zV80J 29sIHdp ZHRoPSIzMCUiIHZhbGlnbj0 twA6gRo9+JNAkmTL5dEA4wY 5yDPYeQzC9SOreZ199JfErb CIvPjxj i8tnk0sleOb4SgI6ATIkfvI yaPsaYZJ7j0BxVu44I36rTH dpZHRoPSIyMCUiIHZhbGlnb o5yqK3w Ii8+ULMnwRH0wDK1lZ1aZfK kGnB6QHqnS825RlUdsTQxPi cpU59wT9AwzQX+QQLaYzv6M CBzdHls XT6ozORuCZqfEi0kBVX2MsN eVfWkSPnfB6AtFGSokvvxbi dgaHS7ZKFgUNLogI85Ed6bq DogMTBw eKOOiV9tndxog2tyrvizBbW tDSAiIWk0VUd8VIJsbBxmXx RsUGS4CiA0SVY7aGNwzT2qe Glnbjog cQ7bI7RjNHZrbqpaNg44nC4 zSnMqZnZ6DUisTgg+Q1JBV0 ZPUkQsIEJSRUFOTkUgTUlDS EVMTEU8 K5NaCst8PMSaoMzaUG5frPQ jCXcqBp3neSzjgHkhCJ7vIZ EgghamZOImiI7pCRDqoUBns BglUD6o ROFtoolim436BgLtIYX0VPU wzHSeS9PrqV4jNtUpIFEjVF XkB3AfnFWkMXetS334GPulD zV0KRJz wuQsU9WeARWlqIicWcI3o7M 6Zx6qRo8hOR5cQMv0IX89KV 99fJLpo0Z8oNI4S0VoZVNlf mctcmln lVZ1EIZuSVQyxI44vZBeQRj wPk0zs4W6k161RCXqJTUyoN 17Wi5lsWacJPXdyGWDnU0ml allx2kc qykqGvCxEVBfIIa5ACs0HWN mjMsrMjFgKAA9YmE7IWS5zH VteW4yvOdflsficQ5nTpo+M jUgWWVh vmS4Y0CtGjs7DXTzwQfkIJ4 eqJFuVZytDg4ulYlftZdiYY 5eYJGwmytmDGMauG7lAMXka HRvbTog AG5hXUMagtzns422AsQdOJH 8IJCdyPZcD7PldF2vBfVnCV ZzBVSbR8KqrSWoLDbvC723X GxlZnQ7 JQGhnsNsA1LnLZMinGtdPvD 9h3B4Yx4VGW7UFLH9C9DbHw k2UIZayKurQU5erIYcRLmaS w2boNtc eUeuVB6oZBAehjkoYZSpcM1 pXZVhdLQgvFenKC0nOAXfso vix463ZiUjRPE5TQEtzUAkR 9OuxI7o XwDzPLEaTHEwD5PinTDaLKl eD614ZTkpZvC3MJCyojSaM7 VhBSXyzRioJtV4y2G1Es2UP DwvdGQ+ CD49tl43K0TaLcjmXlk6FNR xNYU3uFH6lX0iBBStDGqah5 C9oDC2H9ZzmkAnqe3cb8mjV XBzZTog P57zvRWaw7P5EIQemAN8XLO gyQvcElGanI03Azd+PGNvbG jii3AiVlagu6vfu1nvtNb5P jMwJSIg sgGhpQcmRGE8n5WoQj99I10 sIHdpZHRoPSIzMCUiIHZhbG achd0wlT6fBq0+SURmfSM8m WB6cM8v SoCdFbP7NKrhS913QiPbgNB lKdlzp9qbw9ecaHs1YhKhYS RtiiRqcNaoHBJ0q3GoCu72J 2NvbGdy u0GhElo8hk37jOUca7A7wVT 9Q6NtCHVyojplvXFybDlcBP 7pUTOpmzgrUURfcG3sDMElE 7a8UqNv UcO0ZHqzX7JfutV4HVIhgOP cNJIrnWVLoM6czbtxv7zxnr zvQyQeGRPwVPl5VVb5NTIvy WduOiBs ZPD2MpY0NRW5xQOyfO3ghWn dntesoW3hKau+PEa7t5grrA HpFC6laCZ1JK90TX98zHUkr 8W5vDA7 M1QbGDIhmdgpmyyndDF7WUL tDMPncJ68Zr6jxHspIu9uTJ MlJWB2YTWaoBVnK1WfoB8nG iAjMDAw TPEfB8SknVRcGRvkY413YXn aFfR6CJQomoYiT5UdNOAykX plDcM4t2G7Ay4WRC42IY76A D23xZLv z8H7cZG5N5YzBOKamusheec ttFB3RMCrPSQvwX00Fh7yfB anPo1iUSXlTHN6QLRliEKoR 9VhnN4q YjQaSNXbJTZhZ5DwwOGrOUt mV933LRbwTeP4OVRxrdSuO8 JkDGTiiZrzTmT3p7U0Bs5PI n84PL89 RP36cUQvn7H9zBE6Y5CsTBV aoylbwkaqnGI6SFCgWFHomQ 76Nc1siMspQt0gBDZwLJT1V FRpbWVz B3MbaL5cFjCbVCSgMWUpR2F aqOLpFXbwY043WKiuGdZ6TK PsppCrC6TsSIVelQzgJtN8g 8C9Le0W POgpjoe7T4FsFauvfVJ+PC9 3KNJeWH01pZPtzWVss3ilvM e9XzZzYSVvJAG4bAwiKCgaw 3JkZXIt Y29 (more content not included)... [facility] Progesterone LCon 12-17-2023 Progesterone LC 9.6 ng/mL Invalid Interpretation [facility] Comment on above: Result Comment: Foll icular phase 0.1 - 0.9 Luteal phase 1.8 - 23.9 Ovulation phase 0.1 - 12.0 First trimester 11.0 - 44.3 Second trimester 25.4 - 83.3 Third trimester 58.7 - 214.0 Postmenopausal 0.0 - 0.1 Performed At: [facility] [id number] Sarah Beal PhD Ph:[phone] Performed By: #### [id number] ####[facility] (DEFAULT)[address] [place] [address] Provider Orderson 12-16-2023 Provider Orders [id number] TGTIFF [facility] Coding Summaryon 11-24-2023 Coding Summary HTMLBase 64 AsspwethHFi3aXc+PGhlYWQ +DV7GILJjI00qwBTcoU8eG6 NMTElOSywgQVBQTElOSyIgb vOrLV4xsDNyYBAd IC8+PR1uEEPjWpdseNTpf2H 9gEB1N51swl7tPNuctUG2CU LrMuEigpewc4estMj8XZkxR mluOyBt XLKnkM05JID7tP93Lj17kKR ehGQkx5znkWt7VnNyVHJbRE R3nRhsUVbqn2NwGVHeR54oe QExb9U8 PDFqaRhjgKGaDrGxsGG6sN9 hYCbvihbsq9pykfpgMsj4lj 79wGRrn1O0vMD3M7NmllH2E GJvbGQg MdvghGYZsM1myrkvr1hgbej pRfEnFTUkCMs0OFu3YMNlgD nqEzUaXO18SEL2RWPqbkXnC 2FsLWFs pGxgAxL3p1S7Kq9IV6VDXcm sA2NQOELHPCtffFX+PC90cj 22J1DbVpmzUct9ZCKeZZI9w WM7qT1v BDVgONywb1Y3qGV5O6FsyzS hek2rn0rzMPIpJLvaR09gnQ Vgm0X4GDVscSU6JIHioOtvN iBzaG93 Oyc+OVVriAhia5YlMfkmi4a jw4ccgFb1AebhTOIpccRonD uzAJA1w2AsVc7pEDPeiEU9t XN6jS5y SdZtIvW5UKbcL665QxCdnCK wDdhhS85zZ0NnoXM+PHRyPj k1DFDqrLpwPA3gQ1QxVMVwk mctbGVm jSqtIX3lMBHztajwGVRqzY2 vUJEcQ4x3PdLsEfF3CLpzC9 XgAYKddexoPo53uO5cRpUaA fA5GSry C0JitqJ9FROhwNRmJDirOGN 7F54qb2W3FOWcWOEeKIH5tD C3rM9gtVcnxcgoaYWloFkym mVydGlj QHcfWBchA322TRCegLmsOaK vZGluZyBEYXRlOiAgMDMvMj EvMjAyNDwvdGQ+KMHhMUE6w WxlPSAn eFCqLYhoCw4hvNvicVwnCN8 oKJZftdvqKXPeuB2dYMRczH YnsSgfJO5bCKLgahlmd429G iAxMHB0 ETUjoQOxR3FfaR1dLmFfLEJ wOHCnP0OgvIQnTYwtF565DH ldAmT4KKUwzfVsP0KqYTUdh WduOiB0 i3H7Vr2Ap3FgqgnhO8YzzDW oWfMxVdssPDn7Z2CyIdyiuY I+LT51HZZgIR19SWi7FYE8x WxlPSdi YXCjH7ZqqH9wVbTrCLPtVWQ kOyc+PHRhYmxlIHdpZHRoPS ncOUNhTeLogNwiDG1cOy7lX GVyLWNv gFndgFPnDuMlj9pgVAIvMSv mJJ1tzXvsJ2GrgPG0NKBtt8 t2Uq38Q21rL4CpjOZ+PGNvb BJ2mGM7 lN1pCyTqXxZ4OGyyU633YfB dpDDtAohzx9anu9aqhIr1Up J4AZHsicXadKhcCZA9o7FhM i60M69w IHdpZHRoPSIxNSUiIHZhbGl uyj4soV3jSz4+ZABeqDZ9xJ I2yO5lJhJhOyL8OJrxO319W nRvcCIv Tprqy0tfs6jotTc6ErDnDEM jgeDxmJmnQFT1x5SbLn01L8 QttCzuo5UlGuf3ed09dIOdh 5Y8gLG4 P6MzCVFtwytxqLNpxJjxAQ7 lGZSvbolaNKOflJ6iFQKoX1 h1DmXfYfE5ZXldM5QmorU7Q GJvbGQg LEZoeZKBhN7gzlmcx9agifk eHpCvVJLxOQg6KJc6KRMiwP mpYhLcTON9WaS1SLL3fKHhq M5pvVoq wmvrmA1tUwq+GSR6gQWqhTM NXH8xTerncCG+XHShLZJ4yT kxNQdpJZGutE5nEKZuH9t7D iAwLjA1 KIzwE0MdckC0OVSqhHDqUFH daSCApF0rbztjx6fqqooxGp UlNUKwKXt5YAh1OUPybPjyU iBsZWZ0 ShQ2IZF1cJRooF5cjDhwnfy haN0rXbh+IxnjhPuoTKQ2XC b0X4BgVbm5LDYmfUbuQI8du GFkZGlu Ze5crTcdhExkER3yHIRadrl uw513VmBte7bxMBUjgGXzOJ aeNUB0V17np4J5SPExAISyJ BX6xMP7 lM1hbMloezwcfWCxjQvboaK oePenJUqhMKkyB212OOZzuA bqBfEiJMk7Y4SrMqm3FQIzb PyyPP8y tGWeDXluOu2gdOrlrRzyDE5 eWSSctxcko234IdFfi9akQK AceWHrUDlfGNH7Y17nm5N2S CMwMDAw DGI9cRE9vU2xmQgahrbibRT mdDsgdmVydGljYWwtYWxpZ2 48CSIsuXcoVoVygGf8R7HsL qn1INZo eVvdVP4tkCHuDDecFx2feXd naEdmIK7hTLSznpdvb168Xy Ttq5iwYONqoGPaXBauBTT4J 62px8L9 ZUWuKZBqIZT5hMD3gX1xbYz nbjogbGVmdDsgdmVydGljYW ahYJcbK545WTRjaEebWjSrl GllbnQg MZjrBZg9E0KyMozcnHN+PC9 3JXEyWV76lKHtcYHbm1kzfT y9ZgGeTVYoGNY2xCsdSAaru 3JkZXIt K37jtYBng5Y0TBFcbGlsxIY xIsUcbML2jQ3zNRfnxzxyv9 pjnigtWgmrx1pona97mM64G 29sIHdp ZHRoPSIzMCUiIHZhbGlnbj0 mfL9qAy1+XNHbvIA8vMR1eZ 0qCHQnEkM8BDvjI004CkCeu CIvPjxj v0rhc3iteMf0WmH6CZSwacQ kdOzeTXT0o7PsPa99M98uJR dpZHRoPSIyMCUiIHZhbGlnb y8jyO3d Ii8+ESQzjWA1jHQ2lK9nRlJ iCqT1VLclB958XuEubSGfIl xgX57pY7HswFW+OWGhHss0D CBzdHls XE4qmSWnKCtgSp0sDBI7UhI kPjCeMFvxR6AgQKKjuwvfix wgdOK2VTXzBLCskT39Hj2lh DogMTBw sQPNgI1qnbgnb5ubmgycDsA jVGGoDKj5EPp9CHStkCypBy CrOKW9GjP8EFU7jPJjqO5zy Glnbjog hS7hC8IbEMXqtxxuUt50eV2 iJbFgQrU6JGqfUwy+Q1JBV0 ZPUkQsIEJSRUFOTkUgTUlDS EVMTEU8 I2YnDfr9CJGolRgrFR7wiKT mNBqnLb5ktIyuePjvBC6jQN FffgyeGWZnkK8nZDLnqMPht IivJO8v FUVmmfpgy910OwUxZKY1ALA pcJTsB4NqyX1pPlGxTCUjNK KjT6WgpYVlBKxmM866QDzgN eW0DSCr orQaG3ZgTLGbnTjfNdJ9a9C 3Gf6bWc1lCS8cFHc1ID88UK 47tASru0E0aVZ1P4NaFAZdx mctcmln bTQ0ELVgSEIneF99pJYsISw yEd7rt7C7e170XKGoXVNtaT 96Vf7uwIdsYSKppNDZoD4ft wsci5jk aqodImAoNKCnWIj0SHx0AGX xkAdyBuVxAWC9CvB2FOR9wQ McnN0xkAuiesqaaI7oDtu+M jUgWWVh owN5R2EiElo5IMZsiZxmWU9 cwQWyHXxyJo4usHugnRjdCP 1bWMFyoepgBPHcyH1mLYIka HRvbTog IZ6hSBFyrlvke541WuOiXTQ 7QQJrxZWyV6KwnO1xSmSxQX BpUKDnY0MomLDiNWamO604K GxlZnQ7 ANDehbBzH4InSYUyrJuaVvO 7t5S6Bp9BTP0GBZO6D7KwSf o5IGIqtOyhYP7ebBLaBQuoB i1opTmi sHnxWC1gXUAkrwfgHKVgkD4 bCFEcoMRxuTutJV5kOFQvhy tal076UcXkJIM0XZKvaLSiO 4OlvU3n FwUfZSCkTLTbT1ImlJKaVKf wU357PKciRxU6YFKlzzNeF5 VjRAVmyXkkOyU9u1Q5Sz3Nn KGbQ2Ew G2v0K5QpJgagxRM+RN84SMT vAL86rOTzsLFmn6nuoXk6Ok MhWARaXLW5dZhxJJeqj9YaK EGmH53g yQWed7T2CTQwnMjspNWzMnV isPA1kY7rWHqkdiust6tzdy rcOmtiq8zqew23rE30H71qI HdpZHRo CDOnAYCmFVDreDvypc1xvW3 wIi8+SBYveIV3sBT9nO9uXd AdRwF8MLnyY325UuAzuBIuS gbir2qg m9bxyCx1BlRzJPOxhdXfdCc xZZK1g7KyGk98E58kTKbuQW ZyYBRbWDVwXTIupQpodb1fx G9wIi8+ BE1fc0trvi20yQ82gYM+PHR nRKR0pQfaGNqsEMUqvB5vWG nzMkU7ELQmCvIoeV13fNXuC YmlVv0e pWsdiHgaEY6qTUTkdlidx17 7JbJlz6gwTWTifEIvUEiqDL W1C90di3F3GIOeEMWcVRY2d GW6jL8u bGlnbjogbGVmdDsgdmVydGl qDQtcAVrgO830MYKtjIutVe EnzBDnL3ggwpQFEM4oBpsfj GQ+PHRk WZS8kElaTBylSARlaE2mZRD mN6o7KaKyQgF8DYxnW9Wrmd T0NWZyiUMsUGNnqFAXiP1aq fjxv1br blxhMgYjVNHmHYr6VPo7UPA vbFhiBjHtEON2UcI3RID1mZ LotW5xuMvkadyypD1jIxy+R klOOjwv dGQ+XFOkPHS8fNfdRJxnEJK cqR6jUXAzU6m4TaYjEoE3ZR gmW0AiieS8CFFsdTRkEUInj WIUaS4o lxisf2sgncdxFuJmOADqDDq 7EGb5GGHmwYrgDfZhAFQ5Lm H5CQK1jKHdlH5wjUbntkrxa G9wOyc+ TVJOOjwvdGQ+RASeYIU9gDg kZZsbWAYokA2dZHByF8o6Fa LwUkQ2UJfjD4HudxS0INZnf GQgMTBw xOLWzS1lgbcap9flvwhyNfK fAPKdYDi7HBy9MZHavTqeMk WpWBK4WbA6YLE8uFSfeX5rm Glnbjog xB1iGcu+BHB7HIC9OT72AQ8 9S1VfDirvpRGdxES+PHRhYm xlIHdpZHRoPScxMDAlJyBzd TtcEQ1r Ym9 (more content not included)... Normal [facility] ED Clinical Summaryon 2023 ED Clinical Summary [facility] - Emergency Department [address] [place], [place] [id number] ED Clinical Summary PERSON INFORMATION Name: SHERLY ASTUDILLO Age: 23 Years Sex: FEMALE : 2000 MRN: Acct#: Visit Reason: Laceration of finger; LEFT INDEX FINGER CUT Arrival: 11/19/2023 09:14:04 Discharge: 11/19/2023 10:10:00 LOS: 000 00:56 Check In: 11/19/2023 09:14:04 Checkout:11/19/2023 10:10:00 Address: [address] [place] [id number] PCP: Radha Gomez MD PROVIDER INFORMATION Provider [...] indicated that she was using a box sealing machine feeder. She used a sharp knife, [...] History Medical history: Resolved Ankle fracture, left ([id number]): Resolved. 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 Surgical history: Cholecystectomy ([id number])., Reviewed as documented in chart. Family history: [...] Polycystic ovaria (more content not included)... Normal [facility] ED Note - Physicianon 2023 [...] indicated that she was using a box sealing machine feeder. She used a sharp knife, [...] History Medical history: Resolved Ankle fracture, left (29741431): Resolved. Ankle impingement syndrome (620399695): Resolved., Reviewed as documented in chart. Surgical history: Cholecystectomy ([id number])., Reviewed as documented in chart. Family history: [...] and orient (more content not included)... Normal [facility] ED Note-Nursingon 11-19-2023 ED Note-Nursing Pt ambulatory back t o ED rm 6. Pt C/O Left index finger laceration. Pt states she was trying to open a box and cut the finger with a box sealing machine feeder. The wound on the index finger is a straight line of 4cm with a width of 0.2cm. States last tetanus was more than 5 years ago. Pt is A/Ox4. Normal [facility] ED Patient Summaryon 024 ED Patient Summary [facility] - Emergency Department [address] [place] [address] PATIENT DISCHARGE INSTRUCTIONS Patient Information Name: SHERLY ASTUDILLO Age: 23 Years Date of : 2000 Reason For Visit: Laceration of finger; LEFT INDEX FINGER CUT Arrival Time: 11/19/2023 09:14:04 Primary Care Physician: Jason MCNEAL, Radha Santo Attending Physician: Sreedhar Cheney MD Comment: Visit Diagnosis: Diagnoses This Visit Laceration of finger ([id number]) Laceration of left index finger (S61.211A) The Pharmacy at [facility] is open Tuesday through Tuesday from [...] alcohol and/or drug addiction problems; contact the [facility] 28/03 Crisis Hotline -Text 5GRGS xg [phone]. If you received any narcotics, sedation, or [...] legal documents With: Address: When: Radha Gomez [address] [place], [place] [id number] Business (1) Within 5 to 7 days [...] and treatment you received today in the [facility] Emergency Department were for an urgent problem and are not intended as complete care. It is important for you to follow up with a doctor, nurse practitioner, or physician?s teachers' assistant for ongoing care. If your symptoms [...] so we can reach you if necessary. [facility] Emergency Department has provided you with a complete list of medications post discharge. Please inform your conservation enforcement officer/provider of your visit and for further instruction [...] better healing. Unl (more content not included)... [facility] 01-04-2022 L --- Specimen: [id number] Received: 01/05/22 Status: QUOC Jcarlos Num: [id number] Spec Type: Surgical Subm Dr: Rodney Lema MD Tissues: A Skin-Other than Cyst, tag, debridement or plastic repair (SCALP) Procedures: JASWINDER Stain/5, Gross/Micro L4 Patient Age/Sex Location Account Attending Physician Sherly Astudillo / [facility] [id number] Rodney Lema MD SPEC NUM: [id number] RECD: 01/05/22 STATUS: QUOC GARBER NUM: [id number] JANE: 01/04/22 [facility] DR: Rodney Lema MD ENTERED: 01/05/22 [facility] DR: Dea,Lab SPEC TYPE: Surgical DEPT: [...] Fixative: 10% Neutral Buffered Formalin (ESTELA/HUNTER) Specimen: [id number] Received: 01/05/22 Status: QUOC Garber Num: [id number] Spec Type: Surgical Subm Dr: Rodney Lema MD Tissues: A Skin-Other than Cyst, tag, debridement or plastic repair (SCALP) Procedures: HE Stain/5, Gross/Micro L4 Patient: Sherly Astudillo [id number] (Continued) Specimen: [id number] Received: 01/05/22 (Continued) Signed (signature on file) Debora Cintron MD 01/07/22 0930 Specimen: [id number] Received: 01/05/22 Status: QUOC Garber Num: [id number] Spec Type: Surgical Subm Dr: Rodney Lema MD Tissues: A Skin-Other than Cyst, tag, debridement or plastic repair (SCALP) Procedures: HE Stain/5, Gross/Micro L4 Patient: Sherly Astudillo [id number] (Continued) Specimen: [id number] Received: 01/05/22-2636 (Continued) Microscopic Description Six glass slides with H E stained material and two IHC stained slides have been examined. The microscopic findings support the above pathologic diagnosis. ANALYTE SPECIFIC REAGENT (ASR) DISCLAIMER: The use of one or more reagents in the above tests is regulated as an analyte specific reagent (ASR). The performance characteristics were determined by the [facility]. Immunohistochemistry assays have not been validated on decalcified tissue. Results should be interpreted with caution given the possibility of false negative results on decalcified specimens. They have not been cleared by the [place] Food and Drug Administration. The FDA has determined that such clearance or approval is not necessary. CPT Codes 79883, 55639, 78113 Specimen: [id number] Received: 01/05/22 Status: QUOC Garber Num: [id number] Spec Type: Surgical Subm Dr: Rodney Lema MD Tissues: A Skin-Other than Cyst, tag, debridement or plastic repair (SCALP) Procedures: HE Stain/5, Gross/Micro L4 Patient: Sherly Astudillo [id number] (Continued) Signed (signature on file) Debora Muller (more content not included)... [facility] Cytology Cervical or vaginal smear or scraping studyon 12-26-2019 [facility] Vital Signs Date Time Vital Sign Value Performing Clinician Raymondi carlosy 11-06-2024 08:46-0500 Body mass index (BMI) [Ratio] 44.01 kg/m2 Emily TALBERT Work Phone: [facility] 11-06-2024 08:46-0500 Body weight 127.46 kg Emily TALBERT Work Phone: [facility] 11-06-2024 08:46-0500 Diastolic blood pressure 76 mm[Hg] Emily Hume PA Work Phone: [facility] 11-06-2024 08:46-0500 Systolic blood pressure 128 mm[Hg] Emily Favian PA Work Phone: [facility] 10-22-2024 14:46-0500 Body mass index (BMI) [Ratio] 43.04 kg/m2 Cole Celeste DO Work Phone: [facility] 10-22-2024 14:46-0500 Body weight 124.65 kg Cole Celeste DO Work Phone: [facility] 10-22-2024 14:46-0500 Diastolic blood pressure 70 mm[Hg] Cole Celeste DO Work Phone: [facility] 10-22-2024 14:46-0500 Systolic blood pressure 116 mm[Hg] Cole Celeste DO Work Phone: [facility] 10-08-2024 13:57-0500 Body mass index (BMI) [Ratio] 42.15 kg/m2 Emily Lundy PA Work Phone: [facility] 10-08-2024 13:57-0500 Body weight 122.07 kg Emily Hume PA Work Phone: [facility] 10-08-2024 13:57-0500 Diastolic blood pressure 82 mm[Hg] Emily Favian PA Work Phone: [facility] 10-08-2024 13:57-0500 Systolic blood pressure 122 mm[Hg] Emily Favian PA Work Phone: [facility] 09-10-2024 14:35-0500 Body mass index (BMI) [Ratio] 40.94 kg/m2 Cole Celeste DO Work Phone: [facility] 09-10-2024 14:35-0500 Body weight 118.57 kg Cole Celeste DO Work Phone: [facility] 09-10-2024 14:35-0500 Diastolic blood pressure 76 mm[Hg] Cole Celeste DO Work Phone: [facility] 09-10-2024 14:35-0500 Systolic blood pressure 118 mm[Hg] Cole Celeste DO Work Phone: [facility] 08-08-2024 11:09-0500 Body mass index (BMI) [Ratio] 39.37 kg/m2 Cole Celeste DO Work Phone: [facility] 08-08-2024 11:09-0500 Body weight 114.03 kg Cole Celeste DO Work Phone: [facility] 08-08-2024 11:09-0500 Diastolic blood pressure 72 mm[Hg] Cole Celeste DO Work Phone: [facility] 08-08-2024 11:09-0500 Systolic blood pressure 120 mm[Hg] Cole Celeste DO Work Phone: [facility] 07-10-2024 10:45-0500 Body mass index (BMI) [Ratio] 38.37 kg/m2 Cole Celeste DO Work Phone: [facility] 07-10-2024 10:45-0500 Body weight 111.13 kg Cole Celeste DO Work Phone: [facility] 07-10-2024 10:45-0500 Diastolic blood pressure 74 mm[Hg] Cole Celeste DO Work Phone: [facility] 07-10-2024 10:45-0500 Systolic blood pressure 118 mm[Hg] Cole Celeste DO Work Phone: [facility] 06-07-2024 13:09-0400 Body mass index (BMI) [Ratio] 38.53 kg/m2 [facility] 06-07-2024 13:09-0400 Body weight 111.58 kg [facility] 06-07-2024 13:09-0400 Diastolic blood pressure 72 mm[Hg] [facility] 06-07-2024 13:09-0400 Systolic blood pressure 116 mm[Hg] [facility] 05-08-2024 11:32-0400 Body height 170.2 cm Cole Celeste DO Work Phone: [facility] 05-08-2024 11:32-0400 Body mass index (BMI) [Ratio] 39.16 kg/m2 Cole Celeste DO Work Phone: [facility] 05-08-2024 11:32-0400 Body weight 113.4 kg Cole Celeste DO Work Phone: [facility] 05-08-2024 11:32-0400 Diastolic blood pressure 80 mm[Hg] Cole Celeste DO Work Phone: [facility] 05-08-2024 11:32-0400 Systolic blood pressure 124 mm[Hg] Cole Celeste DO Work Phone: [facility] 10-06-2023 08:53-0500 Body height 170.2 cm Cole Celeste DO Work Phone: [facility] 10-06-2023 08:53-0500 Body mass index (BMI) [Ratio] 38.28 kg/m2 Cole Celeste DO Work Phone: [facility] 10-06-2023 08:53-0500 Body weight 110.86 kg Cole Celeste DO Work Phone: [facility] 10-06-2023 08:53-0500 Diastolic blood pressure 72 mm[Hg] Cole Celeste DO Work Phone: [facility] 10-06-2023 08:53-0500 Systolic blood pressure 120 mm[Hg] Cole Celeste DO Work Phone: [facility] Healthcare Encounters Encounter Date Encounter Type Care Provider Facility Start: 11-20-2024 End: 11-20-2024 ambulatory COLE CELESTE Not Available Start: 11-12-2024 End: 11-12-2024 Clinisync Result Encounter Cole Celeste DO Work Phone: [facility] External Department Unsolicited Start: 11-12-2024 End: 11-12-2024 Clinisync Result Encounter Cole Celeste DO Work Phone: [facility] External Department Unsolicited Start: 11-06-2024 End: 11-06-2024 [...] Available Start: 10-25-2024 ambulatory Radha Gomez Facility: [facility] Start: 10-24-2024 End: 10-24-2024 Clinisync Result Encounter Emily TALBERT Work Phone: [facility] External Department Unsolicited Start: 10-24-2024 End: 10-24-2024 Clinisync Result Encounter Emily TALBERT Work Phone: [facility] External Department Unsolicited Start: 10-24-2024 End: 10-24-[address] [facility] Start: 10-22-2024 End: 10-22-2024 Office outpatient [...] Start: 10-18-2024 End: 10-18-2024 ambulatory [facility] Start: 10-15-2024 End: 10-15-2024 Chart abstracting Scanning Provider External [facility] Start: 10-08-2024 End: 10-08-2024 Bamboo flowsheet [...] EMILY LUNDY Not Available Start: 10-06-2024 ambulatory [facility] Facility: [facility] Start: 09-24-2024 ambulatory [facility] Facility: [facility] Start: 09-10-2024 End: 09-10-2024 Clinisync Result Encounter Cole Celeste DO Work Phone: [facility] External Department Unsolicited Start: 09-10-2024 End: 09-10-2024 Clinisync Result Encounter Cole Celeste DO Work Phone: [facility] External Department Unsolicited Start: 09-10-2024 End: 09-10-2024 [...] encounter procedure Cole Celeste DO Work Phone: [facility] Healthcare Work Phone: Start: 08-08-2024 End: [...] Start: 07-05-2024 End: 07-05-2024 ambulatory Radha Gomez Facility:[facility] Start: 07-04-2024 End: 07-04-2024 Clinisync Result Encounter Cole Celeste DO Work Phone: [facility] External Department Unsolicited Start: 07-04-2024 End: 07-04-2024 Clinisync Result Encounter Cole Celeste DO Work Phone: [facility] External Department Unsolicited Start: 06-07-2024 End: 06-07-2024 ambulatory [facility] Nurse [facility] Comment on above: GA: 8w6d Start: 06-01-2024 End: 06-01-2024 ambulatory Radha Gomez Facility:[facility] Start: 05-28-2024 End: 05-28-2024 Emergency department patient visit Evonne Cheung Facility:[facility] Start: 05-28-2024 End: 05-28-2024 ambulatory Spenser Tellez PAC Facility:[facility] Start: 05-08-2024 End: 05-08-2024 Bamboo flowsheet Cole Celeste DO Work Phone: [facility] Start: 05-08-2024 End: 05-08-2024 Bamboo flowsheet Cole Celeste DO Work Phone: [facility] Start: 05-08-2024 End: 05-08-2024 Office outpatient visit 15 minutes Cole Celeste DO Work Phone: [facility] Comment on above: Missed menses Start: 05-08-2024 End: 05-08-2024 ambulatory COLEIsis ORTEZO Not Available Start: 04-24-2024 End: 04-24-2024 Patient encounter procedure Kenya Richter DDS Work Phone: [facility] Comment on above: Abnormal tooth erupt ion (Primary Dx); Impacted third molar tooth Start: 04-24-2024 ambulatory KENYA RICHTER Facili ty:[facility] Start: 03-14-2024 End: 03-14-2024 ambulatory COLEIsis ORTEZO Facility:[facility] Start: 02-14-2024 End: 02-14-2024 ambulatory [facility] Facility:[facility] Start: 01-17-2024 End: 01-17-2024 ambulatory [facility] Facility:[facility] Start: 12-16-2023 End: 12-16-2023 ambulatory [facility] Facility:[facility] Start: 11-19-2023 End: 11-19-2023 Emergency department patient visit [facility] Facility:[facility] Start: 10-06-2023 End: 10-06-2023 Office [...] [facility] OB [address] [place] [phone] Cole Alonso, [address] [place] [address] [facility] Start: 11-06-2024 End: 11-06-2025 Measurement of glucose 1 hour after glucose challenge for glucose tolerance test Glucose tolerance, 1 hour Lab Routine Diabetes mellitus screening Expected: 11/06/2024 (Approximate), Expires: 11/06/2025 [facility] Comment on above: Expected: 11/06/2024 (Approximate), Expires: 11/06/2025 Start: 11-06-2024 End: 11-06-2025 US biophysical profile w non stress test US biophysical profile w non stress test Imaging Routine Excessive growth affecting management of in third trimester, single or unspecified fetus Expected: 11/06/2024 (Approximate), Expires: 11/06/2025 [facility] Work Phone: Comment on above: [...] unspecified fetus Expected: 10/22/2024 (Approximate), Expires: 10/22/2025 [facility] Work Phone: Comment on above: Expected: 10/22/2024 (Approximate), Expires: 10/22/2025 Start: 10-18-2024 End: 10-18-2024 Patient encounter procedure 10/18/2024 1:00 PM EST Appointment [facility] [address] [facility] [address] [place] [id number] [facility] Start: 10-08-2024 End: 10-08-2025 CBC panel - [...] PM EST Routine [facility] [address] [place] [id number] Cole Alonso DO [address] [place] [address] [facility] Start: 09-10-2024 End: 09-10-2024 Professional / ancillary services management 09/10/2024 1:00 PM EST Ancillary Procedure [facility] [address] [place] [phone] [facility] Start: 08-08-2024 End: 02-06-2025 [...] tolerance test Expected: 08/08/2024 (Approximate), Expires: 08/08/2025 [facility] Comment on above: Expected: 08/08/2024 (Approximate), Expires: 08/08/2025 Start: 08-08-2024 End: 08-08-2025 US for US OB ANATOMY SINGLE W US OB CERVICAL LENGTH Imaging Routine Screening, , for anatomic survey Expected: 08/08/2024 (Approximate), Expires: 08/08/2025 [facility] Comment on above: Expected: 08/08/2024 (Approximate), Expires: 08/08/2025 Start: 08-08-2024 End: 08-08-2024 Patient encounter procedure [facility] Comment on above: Arrived Start: 07-10-2024 End: 07-10-2025 Measurement of glucose 1 hour after glucose challenge for glucose tolerance test Glucose tolerance, 1 hour Lab Routine Diabetes mellitus screening Expected: 07/10/2024 (Approximate), Expires: 07/10/2025 [facility] Work Phone: Comment on above: Expected: 07/10/2024 (Approximate), Expires: 07/10/2025 Start: 07-10-2024 End: 07-10-2024 Patient encounter procedure [facility] Comment on above: Arrived Start: 07-04-2024 End: 07-04-2024 Patient encounter procedure 07/04/2024 3:00 PM EDT [facility] [address] [place] [id number] Kenya Richter, DDS [address] [place] [address] [facility] Start: 06-07-2024 End: 06-07-2025 ABO/Rh ABO/Rh Lab Routine Missed menses , unspecified gestational age Expected: 06/07/2024 (Approximate), Expires: 06/07/2025 [facility] Comment on above: Expected: 06/07/2024 (Approximate), Expires: 06/07/2025 Start: 06-07-2024 End: 06-07-2025 Blood type and Indirect antibody screen panel - Blood Type and screen Lab Routine Missed menses , unspecified gestational age Expected: 06/07/2024 (Approximate), Expires: 06/07/2025 [facility] Work Phone: Comment on above: Expected: 06/07/2024 (Approximate), Expires: 06/07/2025 Start: 06-07-2024 End: 06-07-2025 Drugs of abuse panel - Urine by Screen method Rapid drug screen, urine Lab Routine , unspecified gestational age Encounter for supervision of normal first in first trimester Expected: 06/07/2024 (Approximate), Expires: 06/07/2025 [facility] Comment on above: Expected: 06/07/2024 (Approximate), Expires: 06/07/2025 Start: 06-07-2024 End: 06-07-2025 US Pelvis transvaginal US OB transvaginal Imaging Routine Missed menses Expected: 06/07/2024 (Approximate), Expires: 06/07/2025 [facility] Comment on above: Expected: 06/07/2024 (Approximate), Expires: 06/07/2025 Start: 06-07-2024 End: 06-07-2024 ambulatory 06/07/2024 1:00 PM EDT Initial [facility] [address] [place] [address] [facility] Start: 06-07-2024 End: 06-07-2024 Professional / ancillary services management 06/07/2024 12:30 PM EDT Ancillary Procedure [facility] [address] [place] [address] [facility] Start: 06-05-2024 Influenza vaccination Influenza Vacc ine (#1) [facility] Start: 05-08-2024 End: 05-08-2024 Patient encounter procedure 05/08/2024 11:20 AM EDT Office Visit [facility] [address] [place] [address] Cole Alonso, DO [address] [place] [address] Arrived [facility] Comment on above: Arrived Start: 05-06-2024 Influenza vaccination P [facility] Start: 11-03-2023 End: 11-03-2023 Patient encounter procedure 11/03/2023 8:30 AM EST Office Visit [facility] [address] [place] [phone] Cole Alonso, DO [address] [place] [address] [facility] Start: 10-17-2023 End: 10-17-2023 Professional / ancillary services management 10/17/2023 8:30 AM EST Ancillary Procedure [facility] [address] [place] [phone] [facility] Start: 05-06-2023 COVID-19 Vaccine ( season) COVID-19 Vaccine ( season) [facility] Start: 2019 Screening for malign ant neoplasm of cervix Pap Smear [facility] Start: 2017 DTaP,Tdap and Td Vaccines (1 - Tdap) DTaP,Tdap and Td Vaccines (1 - Tdap) [facility] Start: 2017 Hepatitis A (HAV) Vaccine (optional start 19+ years) Hepatitis A (HAV) Vaccine (optional start 19+ years) [facility] Start: 2017 Hepatitis B vaccination Hepati tis B (HBV) Vaccine (1 of 3 - 19+ 3-dose series) [facility] Start: 2016 Adult BMI Screening Adult BMI Screen ing [facility] Start: 2016 Hepatitis C screening Hepatitis C An tibody [facility] Start: 2016 Tetanus + diphtheria + acellular pertussis vaccine (product) [facility] Start: 2013 Vaccination for volodymyr n papillomavirus HPV Vaccine (1 - 3-dose series) [facility] Start: 2010 Depression Screening Depression Scre ening [facility] Start: 2010 Tobacco Screening Tobacco Screening [facility] Antimullerian hormon e (AMH) Antimullerian hormone (AMH) Lab Routine Irregular periods/menstrual cycles Ordered: 10/06/2023 [facility] Comment on above: Ordered: 10/06/2023 Bacteria identified in Urine by Culture Urine culture Microbiology Routine Missed menses Ordered: 06/07/2024 [facility] Comment on above: Ordered: 06/07/2024 CBC W Auto Different ial panel - Blood CBC and differential Lab Routine PCOS (polycystic ovarian syndrome) Ordered: 10/06/2023 [facility] Comment on above: Ordered: 10/06/2023 CBC W Auto Different ial panel - Blood CBC and differential Lab Routine Missed menses , unspecified gestational age Ordered: 06/07/2024 [facility] Comment on above: Ordered: 06/07/2024 CHLAMYDIA TRACHOMATI S (GENITO/STI) CHLAMYDIA TRACHOMATIS (GENITO/STI) Lab Routine STD exposure Ordered: 08/08/2024 [facility] Comment on above: Ordered: 08/08/2024 Cytology Cervical or vaginal smear or scraping study Pap Smear Pathology and Cytology Routine Well woman exam with routine gynecological exam Ordered: 08/08/2024 [facility] Comment on above: Ordered: 08/08/2024 DHEA DHEA Lab Routine PCOS (polycystic ovarian syndrome) Ordered: 10/06/2023 [facility] Comment on above: Ordered: 10/06/2023 DHEA-sulfate DHEA-sulfate Lab Routine PCOS (polycystic ovarian syndrome) Ordered: 10/06/2023 [facility] Comment on above: Ordered: 10/06/2023 Follicle stimulating hormone Follicle stimulating hormone Lab Routine PCOS (polycystic ovarian syndrome) Ordered: 10/06/2023 [facility] Comment on above: Ordered: 10/06/2023 hCG, quantitative, hCG, quantitative, Lab Routine PCOS (polycystic ovarian syndrome) Ordered: 10/06/2023 [facility] Work Phone: Comment on above: Ordered: 10/06/2023 Hemoglobin A1c measurement Hemoglobin A1c Lab Routine Irregular periods/menstrual cycles Ordered: 10/06/2023 [facility] Comment on above: Ordered: 10/06/2023 Hemoglobin A1c/Hemoglobin.total in Blood Hemoglobin A1c Lab Routine Missed menses , unspecified gestational age Ordered: 06/07/2024 [facility] Comment on above: Ordered: 06/07/2024 Hepatitis B virus surface Ag [Presence] in Serum or Plasma by Immunoassay Hepatitis B surface antigen Lab Routine Missed menses , unspecified gestational age Ordered: 06/07/2024 [facility] Comment on above: Ordered: 06/07/2024 Hepatitis C virus Ab [Presence] in Serum or Plasma by Immunoassay Hepatitis C antibody Lab Routine Missed menses , unspecified gestational age Ordered: 06/07/2024 [facility] Comment on above: Ordered: 06/07/2024 HIV-1/HIV-2 antigen/antibody combination immunoassay HIV-1 and HIV-2 antibodies Lab Routine Missed menses , unspecified gestational age Ordered: 06/07/2024 [facility] Comment on above: Ordered: 06/07/2024 Luteinizing hormone Luteinizing hormone Lab Routine PCOS (polycystic ovarian syndrome) Ordered: 10/06/2023 [facility] Comment on above: Ordered: 10/06/2023 Neisseria gonorrhoea e DNA [Presence] in Unspecified specimen by ISHA with probe detection Neisseria gonorrhea DNA probe, direct Lab Routine STD exposure Ordered: 08/08/2024 [facility] Comment on above: Ordered: 08/08/2024 Reagin Ab [Presence] in Serum by RPR RPR Lab Routine Missed menses , unspecified gestational age Ordered: 06/07/2024 [facility] Comment on above: Ordered: 06/07/2024 Rubella antibody, IgG Rubella an tibody, IgG Lab Routine Missed menses , unspecified gestational age Ordered: 06/07/2024 [facility] Comment on above: Ordered: 06/07/2024 SURESWAB(R) ADVANCED VAGINITIS PLUS, TMA SURESWAB(R) ADVANCED VAGINITIS PLUS, TMA Pathology and Cytology Routine Vaginal discharge Ordered: 08/08/2024 [facility] Work Phone: Comment on above: Ordered: 08/08/2024 Thyrotropin [Units/volume] in Serum or Plasma TSH Lab Routine PCOS (polycystic ovarian syndrome) Ordered: 10/06/2023 [facility] Comment on above: Ordered: 10/06/2023 Thyroxine (T4) free [Mass/volume] in Serum or Plasma T4, free Lab Routine PCOS (polycystic ovarian syndrome) Ordered: 10/06/2023 [facility] Comment on above: Ordered: 10/06/2023 US for US PELVIS-TRANS VAG IF INDICATED Imaging Routine PCOS (polycystic ovarian syndrome) Ordered: 10/06/2023 [facility] Comment on above: Ordered: 10/06/2023 Immunizations Immunization Date Immunization Notes Care Provider Shaina marley 06-12-2020 influenza virus vacc ine, unspecified formulation Cole Alonso DO Work Phone: [facility] Payers Date Payer Category Payer Medicaid [id number] 2022 Medicaid [id number] 1998 Unknown [id number] 2.16. [id number] 1998 Unknown [id number] 2.16. 840.1.163157.3.579.2.1286 1998 Unknown [id number] 2.16.8 40.1.149171.3.579.2.8 1998 Unknown [id number] 2.16.8 40.1.520922.3.579.2.8 1998 Unknown [id number] 2.16.8 40.1.000817.3.579.2. 1998 Unknown [id number] 2.16.8 40.1.702427.3.579.2. 1998 Unknown [id number] 2.16.8 40.1.754117.3.579.2.8 1998 Unknown [id number] 2.16.8 40.1.704820.3.579.2. 1998 Unknown [id number] 2.16.8 40.1.592511.3.579.2.8 1998 Unknown [id number] 2.16.8 40.1.374237.3.579.2. 1998 Unknown [id number] 2.16.8 40.1.885907.3.579.2. 1998 Unknown [id number] 2.16.8 40.1.793489.3.579.2. 1998 Unknown [id number] 2.16.8 40.1.462139.3.579.2. 1998 Unknown [id number] 2.16.8 40.1.679224.3.579.2. 1998 Unknown [id number] 2.16.84 0.1.494479.3.579.2.1258 1998 Unknown [id number] 2.16.84 0.1.588377.3.579.2.1258 1998 Unknown [id number] 2.16.84 0.1.286665.3.579.2.1258 1998 Unknown [id number] 2.16.84 0.1.487185.3.579.2.1258 1998 Unknown [id number] 2.16.84 0.1.695559.3.579.2.1258 1998 Unknown [id number] 2.16.84 0.1.002691.3.579.2.1258 1998 Unknown [id number] 2.16.84 0.1.486359.3.579.2.1258 1998 Unknown [id number] 2.16.84 0.1.711748.3.579.2.1258 1998 Unknown [id number] 2.16.84 0.1.244709.3.579.2.1258 1998 Unknown [id number] 2.16.84 0.1.158456.3.579.2.9 Social History Date Type Detail Facility Start: 09-15-2023 End: 05-08-2024 Tobacco smoking status AZIS Ex-smoker [facility] History of tobacco use Current smoker [facility] History of tobacco use Cigarette Smoker N [facility] Start: 10-06-2023 End: 11-06-2024 Alcohol intake Lifetime non-drinker (finding) [facility] Start: 09-15-2023 End: 05-08-2024 History of Social function [facility] Start: 09-15-2023 End: 05-08-2024 Tobacco use panel [facility] Start: 09-15-2023 Alcohol Comment caffeine: 1-2 cups per day [facility] Start: 2000 Sex Assigned At Not on file N [facility] Tobacco smoking stat [facility] Tobacco smoking consumption unknown [facility] Start: 05-08-2024 End: 10-15-2024 Tobacco use and exposure Smokeless tobacco non-user [facility] Start: 04-20-2024 [facility] Start: 10-15-2024 Alcoholic beverage intake Ex-drinker (finding) [facility] Childcare Unknown [facility] Start: 12-03-2019 Sex Female (finding) [facility] Clinical Notes 10-06-2023 to 11-06-2024 NITISH Rojas - 11/06/2024 8:50 AM Lin Latham, [employer]RAWER - 10/22/2024 2:50 PM NITISH Gee - 10/08/2024 1:30 PM Lin Latham, [employer]RAW[employer] - 09/10/2024 2:00 PM EST Note Date [...] of: NITISH Rojas documented in this encounter [facility] 10-24-2024 Note [facility] [facility] Note Reason for cardiology [...] mouth in the morning., Disp: , Rfl: [id number] ACID-OM3 ORAL, Take by mouth., Disp: , [...] 4 to 6 weeks Angel Luis Evans MD,[facility] 10-22-2024 History of Present illness Narrative [...] nursing note reviewed. Exam conducted with a environmental assistant present. Vitals: Estimated body mass index is [...] NST/BPP to have started. Orders sent to [facility] Scheduling and [facility]. Hospital to reach out to patient to schedule. Patient to return to clinic in 2 weeks for routine OIB appointment. Documented by Rose Latham LPN on behalf of: Cole Alonso DO documented in this encounter [facility] 10-08-2024 History of Present illness Narrative Reason for Appointment: Patient ID: Sherly Astudillo is a 24 y.o. female who presents for Routine Visit Patient presents today for Return OB appointment. MEDICATIONS Current Outpatient Medications Medication Instructions clotrimazole (Mycelex) 10 MG jacob 1 lozenge(s), Oral, 5x/Day, x 10 day(s), # 50 lozenge(s), 0 Refill(s), 10/16/24 8:59:00 AM HEALTH POLICY ANALYST, Pharmacy: [facility] [id number], 1 lozenge(s) Oral 5x/Day,x10 day(s), 170.18, cm, [...] Endometriosis Mother Magnolia Jackson Diabetes Mother Magnolia Renetta Depression Father Hypertension [...] of: NITISH Rojas documented in this encounter [facility] 10-06-2024 Note Patient Education Ma [...] Follow these instructions at home: ? Take mqqt-xlq-znjqvou and prescription medicines only as told by [...] provider. Document Revised: 11/30/2021 Document Reviewed: 11/30/2021 [employer] Patient Education ? 2023 [employer] Infectious Disease Oral Thrush, Adult Oral [...] difficulty fighting infection (more content not included)... [facility] 09-24-2024 Note Patient Education Ma [...] these instructions at home: Medicines ? Take iihn-bvc-ctjaoor and prescription medicines only as told by [...] and water are not available, use hand accounts payable or receivable clerk. ? Do not touch your eyes, nose, [...] may represent a (more content not included)... [facility] 09-10-2024 History of Present illness [...] nursing note reviewed. Exam conducted with a environmental assistant present. Vitals: Estimated body mass index is [...] Cole Alonso DO documented in this encounter [facility] 08-08-2024 History of Present illness [...] Cole Alonso DO documented in this encounter [facility] 07-10-2024 History of Present illness [...] nursing note reviewed. Exam conducted with a environmental assistant present. Vitals: Estimated body mass index is [...] Cole Alonso DO documented in this encounter [facility] 07-05-2024 Note Patient Education Ma [...] and use condoms. General instructions ? Take snbd-ctg-klycjbq and prescription medicines only as told by [...] provider. Document Revised: 02/19/2021 Document Reviewed: 02/19/2021 [employer] Patient Education ? 2023 [employer]. [facility] 06-07-2024 History of Present illness [...] both done at the same time at [facility] at 10 weeks . Pt desires zofran due to nausea in this . Follow Up: Patient is to have labs drawn at directed and return to office for initial OB appointment with provider. Patient may call office as needed with any concerns or questions. Nurse Visit Completed by: Bernadette Reeder MA documented in this encounter [facility] 05-28-2024 Note Education Materials Orthopedics [...] not too tight. General instructions ? Take bija-sxr-kcoxggu and prescription medicines only as told by [...] provider. Document Revised: 11/09/2021 Document Reviewed: 11/09/2021 [employer] Patient Education ? 2023 [employer] Sciatica Sciatica is pain, weakness, tingling, [...] (pelvis). ? . (more content not included)... [facility] 05-28-2024 Note Patient Education Ma terials Follows: [facility] 05-08-2024 History of Present illness [...] Bailey Xavier LPN on behalf of: Cole lAonso DO documented in this encounter [facility] 04-24-2024 History of Present illness Narrative Images from the original note were not included. documented in this encounter [facility] 11-19-2023 Note Education Materials Caregiving Sterile Tape [...] and water are not available, use hand accounts payable or receivable clerk. ? Change your dressing as told [...] these instructions at home: Medicines ? Take vdpv-sfc-caauwpq and prescription medicines only as told by [...] C. This informatio (more content not included)... [facility] 10-06-2023 History of Present illness [...] nursing note reviewed. Exam conducted with a environmental assistant present. Vitals: Estimated body mass index is [...] and medication was sent to [facility] in [place]. Documented by Rose Latham LPN on behalf [...] glucose tolerance test documented in this encounter [facility] HealthcareEvaluation note* Diagnosis Missed menses documented in [...] or unspecified fetus documented in this encounter [facility] HealthcareEvaluation note* Diagnosis Third trimester state, incidental 30 weeks gestation of Excessive growth affecting management of in third trimester, single or unspecified fetus Diabetes mellitus screening Screening for diabetes mellitus documented in this encounter [facility] HealthcareInstructionsNot on filedocumented in [facility] Purpose Family History No Family [...] third molar tooth Kenya Richter, DDS [address] [place] [address] Referral ID Status Reason Start Date Expiration Date V isits Requested Visits Authorized [id number] Pending Review 04/24/2024 04/24/2025 1 1 Scheduling [...] your procedure, you will be contacted with [id number] costs or next steps. All self-pay payments [...] the procedure: You also MUST have a courtesy driver/escort >18yrs old present to take you [...] section and content) DATE CREATED AUTHOR 01/08/2022 [facility] DATE CREATED AUTHOR AUTHOR'S ORGANIZ ATION 09/23/2024 [facility] [facility] DATE CREATED AUTHOR AUTHOR'S ORGANIZ ATION 10/20/2024 [facility] DATE CREATED AUTHOR AUTHOR'S ORGANIZ ATION 11/08/2024 [facility] DATE CREATED AUTHOR AUTHOR'S ORGANIZ ATION 11/15/2024 [facility] DATE CREATED AUTHOR AUTHOR'S ORGANIZ ATION 11/22/2024 [facility] dical Specialists EPIC Reason for Visit (unrecogniz ed section and content) Reason Comments Discuss cycles Reason Comments Amenorrhea Reason Comments Routine Visit Reason Comments Well Women Visit Routine Visit STI Screening Reason Comments Abdominal Pain Care Teams (unrecognized sec tion and content) Director Of Government Sales Relationship Specialty Start Date End Date Radha Gomez MD [address] [place] [phone] PCP - General Pediatrics 10/06/23 Director Of Government Sales Relationship Specialty Start Date End Date Radha Gomez MD [address] [place] [phone] PCP - General Pediatrics 10/06/23 Director Of Government Sales Relationship Specialty Start Date End Date Radha Gomez MD [address] [place] [phone] PCP - General Pediatrics 10/06/23 Director Of Government Sales Relationship Specialty Start Date End Date Radha Gomez MD [address] [place] [phone] PCP - General Pediatrics 10/06/23 Director Of Government Sales Relationship Specialty Start Date End Date Radha Gomez MD [address] [place] [phone] PCP - General Pediatrics 10/06/23 Director Of Government Sales Relationship Specialty Start Date End Date Radha Gomez MD [address] [place] [phone] PCP - General Pediatrics 10/06/23 Director Of Government Sales Relationship Specialty Start Date End Date Radha Gomez MD [address] [place] [phone] PCP - General Pediatrics 10/06/23 Director Of Government Sales Relationship Specialty Start Date End Date Radha Gomez MD [address] [place] [phone] PCP - General Pediatrics 10/06/23 Director Of Government Sales Relationship Specialty Start Date End Date Radha Gomez MD [address] [place] [phone] PCP - General Pediatrics 10/06/23 Director Of Government Sales Relationship Specialty Start Date End Date Radha Gomez MD [address] [place] [phone] PCP - General Pediatrics 10/06/23 Director Of Government Sales Relationship Specialty Start Date End Date Radha Gomez MD [address] [place] [id number] PCP - General Pediatrics 10/06/23 Director Of Government Sales Relationship Specialty Start Date End Date Radha Gomez MD [address] [place] [id number] PCP - General Pediatrics 10/06/23 Director Of Government Sales Relationship Specialty Start Date End Date Radha Gomez MD [address] [place] [id number] PCP - General Pediatrics 10/06/23 FOR RECORDS [...] BE BASED ON THE PRIMARY CLINICAL RECORDS. [employer] [facility]. provides no warranty or guarantee of the accuracy or completeness of information in this document.
== END 2024-11-22 10:38 | disposition home or self-care (01) ==
LOC: FBCO 10:18 → FBC 10:21
PROVIDERS: PCP Family Medicine; Visit Provider Obstetrics & Gynecology
DX: O26.893 Other specified pregnancy related conditions, third trimester (principal); Z3A.32 32 weeks gestation of pregnancy
CPT/HCPCS: 59025

== ENCOUNTER 2024-11-26 10:51 | Outpatient (OUT) | payer MEDICAID, SELFPAY ==
--- NOTE | 2024-11-26 10:56 | US_ITS ---
[address] [address] Patient Name: SHERLY ERICKSON MRN: [id number] date: 2000 Sex: F Assigned Patient Location: Current Patient Location: Accession/Order Number: [id number] Exam Date: 11/26/2024 14:21 Report Date: 11/26/2024 14:21 At the request of: JACKIE FOREMAN DO Procedure: US OB BPP w non-stress Biophysical profile. Reason for exam: Excessive growth. COMPARISON: BPP 11/19/2024. TECHNIQUE: Transabdominal imaging of the gravid uterus was obtained. FINDINGS: Larder Cook reports a BPP of 8 out of 8. Normal JET of 22.6 cm. heart rate 146 bpm. US/US OB BPP w non-stress IMPRESSION: BPP 8 out of 8. Impression dictated by: Alexy Sparks Jr., D.O.11/26/2024 2:21 PM Dictation Location: [place] [address] Electronically authenticated by: [id number] Y Date: 11/26/2024 14:21
[2024-11-26 12:14] VITALS: BP 122/76; PULSE 122
== END 2024-11-26 12:25 | disposition home or self-care (01) ==
LOC: US 10:51 → FBC 11:25
PROVIDERS: PCP Family Medicine; Visit Provider Obstetrics & Gynecology
DX: O36.63X0 Maternal care for excessive fetal growth, third trimester, not applicable or unspecified (principal); Z3A.33 33 weeks gestation of pregnancy
CPT/HCPCS: 76818

== ENCOUNTER 2024-11-29 09:55 | Outpatient (OUT) | payer MEDICAID, SELFPAY ==
[2024-11-29 10:10] VITALS: BP 86/52; PULSE 127
== END 2024-11-29 11:05 | disposition home or self-care (01) ==
LOC: FBCO 09:55 → FBC 09:58
PROVIDERS: PCP Family Medicine; Visit Provider Obstetrics & Gynecology
DX: O36.63X0 Maternal care for excessive fetal growth, third trimester, not applicable or unspecified (principal); Z3A.33 33 weeks gestation of pregnancy
CPT/HCPCS: 59025

== ENCOUNTER 2024-12-03 11:38 | Outpatient (OUT) | payer MEDICAID, SELFPAY ==
--- NOTE | 2024-12-03 | US_ITS ---
[address] [address] Patient Name: SHERLY ERICKSON MRN: [id number] date: 2000 Sex: F Assigned Patient Location: [facility] Current Patient Location: Accession/Order Number: [id number] Exam Date: 12/03/2024 14:34 Report Date: 12/03/2024 14:36 At the request of: JACKIE FOREMAN DO Procedure: US OB BPP w non-stress Ultrasound obstetrical biophysical profile HISTORY: Excessive growth. There is adequate breathing movement, gross body movement, tone and amniotic fluid volume for total score of 8 out of 8. The amniotic fluid index is 24.9 cm. heart rate is 124 bpm. US/US OB BPP w non-stress IMPRESSION: Adequate biophysical profile with ultrasound. Amniotic fluid index 24.9 cm. Impression dictated by: Robret Hui M.D.12/03/2024 2:36 PM Dictation Location: [employer] Electronically authenticated by: [id number] Y Date: 12/03/2024 14:36
[2024-12-03 12:00] VITALS: BP 126/75; PULSE 88
--- OUTSIDE RECORDS SUMMARY | 2024-12-03 12:00 | XMS_ITS | CCD ---
Author Organization [facility] CliniSyal Care Team Providers Care Continuous Improvement Coach Name Role Phone Radha Gomez MD Primary Care Provider [phone] Unavailable Primary Care Provider UnavailKENYA Gonzales Attending Unavailable PROVIDER, UNKNOWN Admitting Unavailable Unavailable Primary Care Provider UnavailANGEL LUIS Kapadia Attending Unavailable FAVIANEMILY Attending Unavailable CELESTE, COLE Attending Unavailable FAVIANEMILY MERAZ Attending Unavailable CELESTE, COLE Attending Unavailable CELESTE, COLE Attending Unavailable CELESTE, COLE Attending Unavailable CELESTE, COLE Attending Unavailable CELESTE, COLE Attending Unavailable CELESTE, COLE R Referring Unavailable CELESTE, COLE R Referring Unavailable CELESTE, COLE R Referring Unavailable AHMET SOLER Attending Unavailable Radha Gomez Primary Care Unavailable CELESTE, COLE R Admitting Unavailable CELESTE, COLE R Attending Unavailable Radha Gomez Primary Care Unavailable Radha Gomez Attending Unavailable Radha Gomez Attending Unavailable Radha Gomez Primary Care Unavailable Radha Gomez Primary Care Unavailable Tellez [...] Attending Unavailable Radha Gomez Primary Care Unavailable Evonne Cheung Admitting Unavailable Evonne Cheung Attending Unavailable Radha Gomez Primary Care Unavailable CELESTE, COLE R Admitting Unavailable CELESTE, COLE R Attending Unavailable Radha Gomez Primary Care Unavailable CELESTE, COLE R Admitting Unavailable CELESTE, COLE R Attending Unavailable Radha Gomez Primary Care Unavailable COLE ALONSO Admitting Unavailable COLE ALONSO Attending Unavailable Allergies Allergy Classification Reported Allergen(s) Allergy Type Date of Onset Reaction(s) Facility (1 source) No Known Medication Allergies; Translations: [No Known Medication Allergies] Propensity to adverse reactions to drug (disorder) [facility] Repository Medications Current Medications Medication Drug [...] aspirin 81 mg delayed release oral tablet (6 sources) Platelet Aggregation Inhibitor, Nonsteroidal Anti-inflammatory Drug take 1 tablet by mouth in the morning aspirin 81 MG EC tablet Take 81 mg by mouth in the morning. Active aspirin 81 mg ch ewable tablet Chew 1 tablet (81 mg total) and swallow in the morning. Active blood-glucose meter misc (1 source) Start: 11-22-2024 blood-glucose meter misc Indications: Polyhydramnios affecting in third trimester Check blood glucose using meter. Dispense per insurance preference 1 each 11/22/2024 Active magnesium oxide 400 mg oral tablet (3 sources) Start: 11-07-2024 End: 11-07-2025 take 1 tablet by mouth in the morning magnesium oxide (Mag-Ox) 400 MG tablet Take 400 mg by mouth in the morning and 400 mg in the evening. 11/07/2024 11/07/2025 Active ondansetron 4 mg disintegrating oral tablet (17 sources) Serotonin-3 Receptor Antagonist Start: 06-07-2024 End: [...] every 6 (six) hours if needed Active MV & Min w/FA-DHA ( GUMMIES PO) (2 sources) MV & Mi n w/FA-DHA ( GUMMIES PO) Take by mouth Active Completed/Discontinued Medications Medication Drug Class(es) Dates Sig (Normalized) Sig (Original) clotrimazole 10 mg oral lozenge (6 sources) Azole Antifungal Start: 10-06-2024 End: 10-22-2024 clotrimazole (Mycelex) 10 MG jacob 1 lozenge(s), Oral, 5x/Day, x 10 day(s), # 50 lozenge(s), 0 Refill(s), 10/16/24 8:59:00 AM 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 Active ketoconazole 20 mg/ml topical cream (4 sources) Azole Antifungal Start: 10-25-2024 End: 11-20-2024 ketoconazole (NIZOral) 2 % cream 10/25/2024 11/20/2024 Discontinued 24 hr metFORMIN hydrochloride 500 mg extended release oral tablet (20 sources) Biguanide Start: 10-06-2023 End: 11-20-2024 take 1 tablet by mouth every twenty-four hours at mealtime metFORMIN XR (Glucophage-XR) 500 MG 24 hr tablet Indications: Irregular periods/menstrual cycles , Insulin resistance Take 1 tablet (500 mg) by mouth in the evening. Take with meals Do not crush, chew, or split. 30 tablet 11 10/06/2023 11/20/2024 Discontinued (Other) take 1 tablet by graciela th once daily at dinner metFORMIN (GLUCOPHAGE) 500 mg tablet Rell e 1 tablet (500 mg total) by mouth daily with dinner. Active nitrofurantoin, macrocrystals 25 mg / nitrofurantoin, [...] 10-06-2023 Chronic Other and delivery including normal (19 sources) ; Translations: [Encounter for supervision of normal , unspecified, unspecified trimester] 06-07-2024 Episodic Other screening for suspected conditions (not mental disorders or infectious disease) (2 sources) Encounter for other screening follow-up; Translations: [Encounter for other specified screening] Onset: 10-18-2024 Episodic Polyhydramnios and other problems of amniotic cavity (4 sources) Polyhydramnios; Translations: [Polyhydramnios, third trimester, not applicable or unspecified] Onset: 11-22-2024 11-22-2024 Episodic Residual codes; unclassified (1 source) Gestation [...] [30 weeks gestation of ] 11-06-2024 Episodic Residual codes; unclassified (1 source) Gestation period, 32 weeks; Translations: [32 weeks gestation of ] 11-20-2024 Episodic Past or Other Problems Problem Classification Problem Date Documented Da te Episodic/Chronic Administrative/social admission (20 sources) Patient encounter status; Translations: [Person consulting for explanation of examination or test findings] Onset: 11-03-2023 11-03-2023 Episodic Disorders of teeth and jaw (4 sources) Tooth eruption disorder; Translations: [Disturbances in tooth eruption] Onset: 04-24-2024 04-24-2024 Episodic Results Test Name Value Interpretation Reference Range Facility Outside Recordson 11-27-2024 Outside Records [id number]#[id number] TGTIFF [facility] US OB BPP W NON-STRESS on 11-26-2024 The [place] [id number] Ultrasound Report Signed Patient: SHERLY ASTUDILLO MR#: [id number] : 2000 Acct:[id number] Age/Sex: 24 / F ADM Date: 11/26/24 Loc: US Attending Dr: Cole Alonso D.O. Ordering Physician: Cole Alonso D.O. Date of Service: 11/26/24 Procedure(s): US OB BPP w non-stress Accession Number(s): [id number] cc: RADHA GOMEZ ; Cole Alonso D.O. [place] [id number] Patient Name: SHERLY ASTUDILLO MRN: [id number]:[id number] date: 2000 Sex: F Assigned Patient Location: US Current Patient Location: Accession/Order Number: [id number] Exam Date: 11/26/2024 14:21 Report Date: 11/26/2024 14:21 At the request of: COLE ALONSO DO Procedure: US OB BPP w non-stress Biophysical profile. Reason for exam: Excessive growth. COMPARISON: BPP 11/19/2024. TECHNIQUE: Transabdominal imaging of the gravid uterus was obtained. FINDINGS: Manager Pe reports a BPP of 8 out of 8. Normal JET of 22.6 cm. heart rate 146 bpm. US/US OB BPP w non-stress IMPRESSION: BPP 8 out of 8. Impression dictated by: Alexy Sparks Jr., D.O.11/26/2024 2:21 PM Dictation Location: [place] [address] Electronically authenticated by: [id number] Y Date: 11/26/2024 14:21 Dictated By: Alexy Sparks M.D. Signed By: 11/26/24 142 DD/ 20 TD/TT: High School Math Tutor: [facility] April Looney MD - 11/26/2024 The [place] [id number] Ultrasound Report Signed Patient: SHERLY ASTUDILLO MR#: [id number] : 2000 Acct:[id number] Age/Sex: 24 / F ADM Date: 11/26/24 Loc: US Attending Dr: Cole Alonso D.O. Ordering Physician: Cole Alonso D.O. Date of Service: 11/26/24 Procedure(s): US OB BPP w non-stress Accession Number(s): [id number] cc: RADHA GOMEZ ; Cole Alonso D.O. The [address] [address] Patient Name: SHERLY ASTUDILLO MRN: [facility]:[id number] date: 2000 Sex: F Assigned Patient Location: US Current Patient Location: Accession/Order Number: [id number] Exam Date: 11/26/2024 14:21 Report Date: 11/26/2024 14:21 At the request of: COLE ALONSO DO Procedure: US OB BPP w non-stress Biophysical profile. Reason for exam: Excessive growth. COMPARISON: BPP 11/19/2024. TECHNIQUE: Transabdominal imaging of the gravid uterus was obtained. FINDINGS: Manager Pe reports a BPP of 8 out of 8. Normal JET of 22.6 cm. heart rate 146 bpm. US/US OB BPP w non-stress IMPRESSION: BPP 8 out of 8. Impression dictated by: Alexy Sparks Jr., D.O.11/26/2024 2:21 PM Dictation Location: [place] [address] Electronically authenticated by: [id number] Y Date: 11/26/2024 14:21 Dictated By: Alexy Sparks M.D. Signed By: 11/26/24 1424 DD/ 20 TD/TT: High School Math Tutor: [facility] Radiology Study observation (narrative) [facility] US OB BPP W NON-STRESS Ordered By: Radiologist Radiology on 11-26-2024 [facility] Work Phone: Legal Documentson 11-20-2024 Legal Documents [id number]#[id number] [facility] macro (dipstick) panel (U)on 11-20-2024 Bilirubin, UA Negative Negative - 4(70) +++ mg/dL [facility] Blood, UA Negative Negative - 50 Osvaldo/mcL [facility] Clarity, UA Clear [facility] Color, UA Yellow [facility] Glucose, UA Negative Negative - 2000(110) ++++ mg/dL [facility] Interpretation and review of laboratory results Normal [facility] Ketones, UA Negative Negative - 160(16) ++++ mg/dL [facility] Leukocytes, UA Negative Negative - 500+++ Edison/mcL [facility] Nitrite, UA Negative Negative - Positive [facility] pH, UA 6.5 5 - 9 [facility] Protein, UA Negative Negative - 1999(20) ++++ mg/dL [facility] Spec Grav, UA 1.02 1 - 1.03 [facility] Urobilinogen, UA 0.2 0.2 - 12 mg/dL [facility] Outside Recordson 11-13-2024 Outside Records [id number]#[id number] TGTIFF [facility] US OB BPP W NON-STRESS on 11-12-2024 [place] [address] Ultrasound Report Signed Patient: SHERLY ASTUDILLO MR#: [id number] : 2000 Acct:[id number] Age/Sex: 24 / F ADM Date: 11/12/24 Loc: US Attending Dr: Cole Alonso D.O. Ordering Physician: Cole Alonso D.O. Date of Service: 11/12/24 Procedure(s): US OB BPP w non-stress Accession Number(s): [id number] cc: RADHA GOMEZ ; Cole Alonso D.O. The [place] [id number] Patient Name: SHERLY ASTUDILLO MRN: [facility]:[id number] date: 2000 Sex: F Assigned Patient Location: Current Patient Location: Accession/Order Number: [id number] Exam Date: 11/12/2024 13:57 Report Date: 11/12/2024 13:58 At the request of: COLE ALONSO DO Procedure: US OB BPP w non-stress BIOPHYSICAL PROFILE: CLINICAL INFORMATION: Excessive growth COMPARISON: Pelvic ultrasound 06/07/2024 There is a single live intrauterine gestation in breech presentation. The reported gestational age is 31 weeks 3 days. The heart rate [id number] beats per minute. FINDINGS: TONE: 1 or [...] Bailey Beasley M.D.11/12/2024 1:58 PM Dictation Location: [place] [address] Electronically authenticated by: [id number] Y Date: 11/12/2024 13:58 Dictated By: Bailey Beasley M.D. Signed By: 11/12/24 1404 DD/ 3622 TD/TT: High School Math Tutor: [facility] Radiology Radiologparam rangel MD - 11/12/2024 [place] [address] Ultrasound Report Signed Patient: SHERLY ASTUDILLO MR#: [id number] : 2000 Acct:[id number] Age/Sex: 24 / F ADM Date: 11/12/24 Loc: US Attending Dr: Cole Alonso D.O. Ordering Physician: Cole Alonso D.O. Date of Service: 11/12/24 Procedure(s): US OB BPP w non-stress Accession Number(s): [id number] cc: RADHA GOMEZ ; Cole Alonso D.O. [place] [address] Patient Name: SHERLY ASTUDILLO MRN: [id number]:[id number] date: 2000 Sex: F Assigned Patient Location: US Current Patient Location: Accession/Order Number: [id number] Exam Date: 11/12/2024 13:57 Report Date: 11/12/2024 13:58 At the request of: COLE ALONSO DO Procedure: US OB BPP w non-stress BIOPHYSICAL PROFILE: CLINICAL INFORMATION: Excessive growth COMPARISON: Pelvic ultrasound 06/07/2024 There is a single live intrauterine gestation in breech presentation. The reported gestational age is 31 weeks 3 days. The heart rate [id number] beats per minute. FINDINGS: TONE: 1 or [...] Bailey Beasley M.D.11/12/2024 1:58 PM Dictation Location: [place] [address] Electronically authenticated by: [id number] Y Date: 11/12/2024 13:58 Dictated By: Bailey Beasley M.D. Signed By: 11/12/24 1401 DD/ 1358 TD/TT: High School Math Tutor: [facility] Radiology Study observation (narrative) [facility] OB BPP W NON-STRESS Ordered By: Radiologist Radiology on 11-12-2024 [facility] Work Phone: Outside Recordson 11-09-2024 Outside Records [id number]#[id number] TGTIFF Normal [facility] Urinalysis macro (dipstick) panel (U)on 11-06-2024 Bilirubin, UA Negative Negative - 4(70) +++ mg/dL [facility] Blood, UA Negative Negative - 50 Osvaldo/mcL [facility] Clarity, UA Clear [facility] Color, UA Yellow [facility] Glucose, UA Negative Negative - 2000(110) ++++ mg/dL [facility] Interpretation and review of laboratory results Normal [facility] Ketones, UA Negative Negative - 160(16) ++++ mg/dL [facility] Leukocytes, UA Negative Negative - 500+++ Edison/mcL [facility] Nitrite, UA Negative Negative - Positive [facility] pH, UA 6.5 5 - 9 [facility] Protein, UA Negative Negative - 1999(20) ++++ mg/dL [facility] Spec Grav, UA 1.02 1 - 1.03 [facility] Urobilinogen, UA 0.2 0.2 - 12 mg/dL [facility] Office/Clinic Noteon 025 Office/Clinic Note Patient: SHERLY [...] 124.010 kg Body Mass Index 42.82 kg/m2 [place] Body Weight Calculated 61.6 kg BSA Measured [...] lesion. Impression and Plan Diagnosis Tinea corporis (GDU13-GM B35.4). Plan: Will treat with topical antifungal over the next 7 to 10 days.. Orders Orders Pharmacy: ketoconazole 2% topical cream (Prescribe): 1 zoran, Topical, Daily, for 10 day(s), 30 gm, 0 Refill(s). Orders Evaluation and Management: 96313 Office visit - established pt, Level 3 (Order): 10/25/2024 13:24 EST, Qty: 1, Tinea corporis - Eustachian tube dysfunction. Diagnosis Eustachian tube dysfunction (BYO36-LQ H69.90). Course: Discussed with patient most likely some fluid behind her ear. No evidence infection. Continue to just observe.. [Electronically Signed on: 10/25/2024 14:14 EST] Jason MCNEAL, Radha Santo [Verified on: 10/25/2024 14:14 EST] Radha Gomez MD [facility] ALL CBC WITH AUTO DIFFon BASOPHILS ABSOLUTE AUTO 0 [facility] Basophils/100 WBC (Bld) 0.3 % 0.2 - 2.0 % [facility] Eosinophils/100 WBC (Bld) 2.1 % 0.9 - 7.0 % [facility] Erythrocyte distribution width (RBC) [Ratio] 14.3 % 11.0 - 15.0 % [facility] Hematocrit (Bld) [Volume fraction] 32.1 % Low 36.0 - 48.0 % [facility] Hemoglobin (Bld) [Mass/Vol] 10.5 g/dL Low 12.0 - 16.0 g/dL [facility] IMMATURE GRANULOCYTES ABS AUTO 0.34 High [facility] Immature granulocytes/100 WBC (Bld) 3.4 % High 0.0 - 0.5 % [facility] Interpretation and review of laboratory results Abnormal [facility] Healthcare LYMPHOCYTES ABSOLUTE AUTO 2.4 [facility] Lymphocytes/100 WBC (Bld) 24 % 20.5 - 60.0 % [facility] MCH (RBC) [Entitic mass] 27.9 pg 26.7 - 34.0 pg [facility] MCHC (RBC) [Mass/Vol] 32.7 g/dL 29.9 - 35.2 g/dL [facility] MCV (RBC) [Entitic vol] 85.4 fL 81.0 - 99.0 fL [facility] MONOCYTES ABSOLUTE AUTO 0.4 [facility] Monocytes/100 WBC (Bld) 4.2 % 1.7 - 12.0 % [facility] NEUTROPHILS ABSOLUTE AUTO 6.7 High [facility] Neutrophils/100 WBC (Bld) 66 % 43.0 - 75.0 % [facility] Platelet mean volume (Bld) [Entitic vol] 9 fL Low 9.5 - 13.5 fL [facility] TBH EO # 0.2 [facility] TB PLT 332 [facility] RBC 3.76 Low [facility] WBC 10.1 [facility] Office Visiton 10-24-2024 Follow-up visit [id number] Sherly Astudillo 2000 F Date Provider Department Center 10/24/2024 [id number] [facility] Family History Problem Relation Age of Onset Diabetes Mother Diabetes Maternal Grandmother Diabetes Maternal Grandfather Family Status - Relation Status Age at Mother Maternal Grandmother Maternal Grandfather Level of Service:13137 CT OFFICE/OUTPATIENT NEW MODERATE MDM 45 MINUTES Reason for Visit and Comments: Rapid Heart Rate [427480] - Episodes of tachycardia include lightheadedness and SOB. Denies chest pain. She says sometimes HR gets up to 160's with rest. Problem [483504] - Currently 28 weeks gestation. This is her 2nd . She denies having issues like this during first . Palpitations [467338] Shortness of Breath [476095] Dizziness [306298] Normal [facility] Urinalysis macro (dipstick) panel (U)on 10-22-2024 Bilirubin, UA Negative Negative - 4(70) +++ mg/dL [facility] Blood, UA Negative Negative - 50 Osvaldo/mcL [facility] Clarity, UA Clear [facility] Color, UA Yellow [facility] Glucose, UA Negative Negative - 1999(110) ++++ mg/dL [facility] Interpretation and review of laboratory results Normal [facility] Ketones, UA Negative Negative - 160(16) ++++ mg/dL [facility] Leukocytes, UA Negative Negative - 500+++ Edison/mcL [facility] Nitrite, UA Negative Negative - Positive [facility] pH, UA 7 5 - 9 [facility] Protein, UA Negative Negative - 1999(20) ++++ mg/dL [facility] Spec Grav, UA 1.015 1 - 1.03 [facility] Urobilinogen, UA 0.2 0.2 - 12 mg/dL [facility] C Throaton 10-08-2024 C Throat Normal throat justine isolated No pathogens isolated Normal [facility] Comment on above: Performed By: #### [id number] ####[facility] (DEFAULT)[address] [place] [id number] Coding Summaryon 10-08-2024 Coding Summary HTMLBase 64 UkutmniiGKm7pJe+PGhlYWQ +MV2NSIKfO99dzJJatV9fS9 NMTElOSywgQVBQTElOSyIgb bRiLX0reRXiMNVr IC8+ZC3kOAWwGsdxlEKdl4F 1lSI1W81dsy1hYXckjGP1WL KlNtCgzmqjr8vyyDh2VSrsP mluOyBt GDKrdU44DOK7rW41Om16iII yaFYqj2ibmWs0BpEgYUWvHA F9yMruBXqit2GaDPFmO13pc IIsm7O3 LRChwJdoiPUpKoGtrOH2zF6 cVEcfatzol4qannejDsy3yi 41cPBar7P5xKP9M1BbtaR2H GJvbGQg KbfvdIMQoM3cowkqc4fwcre cVqKuODDjYPt5FSs5UUOrrL loIfFvJJ54HUN5JEZzorMrM 2FsLWFs sCpoUwB9w2Q7Oi3FW7DSGfs qY0HGHSWTQLtnfPO+PC90cj 25Q7QlKhfcYzi0IBRsKZP1m LR0eW7e NKXoDKxpz8W1jRP5G6XobxY dhg9kb5puIEIdQWszR24coX Zvh6I8VBXioBE2EGMqkUyzM iBzaG93 Oyc+VCYsdZckw5ToKbusw5i ev0sfxCo0CfrzHBZqlgFgnC buOMH4c3UzXz8qNVMpjHK1y LB3fJ9t KfOjMnL7THpiW535JjTxlVY hXvfuO46fA0AreYP+PHRyPj e5TBLqgVhhHI8rX8ZnUDDxh mctbGVm eCymKL0dOISanqtjKYDllO8 vLBTrY1e5BiWsIlQ5PIggA2 RpPGUqurikSf05fS2eEqNaO uI7KKnb Y2GwctJ0HJTqdOPcENlzAQS 7N38vr5N5RYVlKDSyHTX3vN R6oO0teOvdazhhbUBfzEsyi mVydGlj TRdqZNctA681HEAnhPugKuF vZGluZyBEYXRlOiAgMDIvMD MvMjAyNTwvdGQ+KFMiRCR8n WxlPSAn nAZgQBqmVw3unAfblOdpXS8 tZSJsjsdnRKSziF8uBBRevL KpnKwnJP1jANWcnzvez508E iAxMHB0 PUSrsOQhW1PhvI5qRpDdODW jEOFaA4OwlSBiVOidR589SS goWoX6WWBfdjUrH1ZsPZNdi WduOiB0 i3C2Gw8Ug8IpxosyD0BsiFZ gRvJuIhecUNy4N1ItShcfyH I+EU08XFPyQD56AFa8CZK7z WxlPSdi VOPhZ4MjzC5mNiNvOVEjLKI kOyc+PHRhYmxlIHdpZHRoPS pyPDOyIrCrbMzrMC0xSi5nN GVyLWNv rFhwuLUeReKiw8zrFHMcRVi mOG5amNhiR0SuoGR6VVWwk9 d1Pk03L55pH1UuyNS+PGNvb TX8nFC6 bL5nGxQsOxY3HEuzN087SqD xyVOaBucwb6zbn0yngCw0Ih U2WKFzntFzqOnjODO8y2GtO k13H66n IHdpZHRoPSIxNSUiIHZhbGl kmb7lqX3sIf9+TWQeaZE3qS T7vS7fLrCwCoS5PPcyP355D nRvcCIv Zzver8usi4dllDm8XzZmDQN xfdHwcSdpDTN3o0WgDt64D3 DzbCaoh3QwLzx9it98mAIxz 9X2mXE6 D6PmOELwvcuhlBQxoByzXJ0 lPZFrhfvcDGSjpH3nWUOpZ0 u3HcKoQrZ5MWgoQ5ZnnsH2Y GJvbGQg ZJJyuAHQqT7vnsjdl7tgkou nTmMgFHZdVCu9PJq7MJByvE ojQnTwHCB4IwW8SZM5bQXjz Z0ikQxl aaknkM6dTzh+YKF4zCFdeYV NMN1qSspexBV+WVRsZVB9uI auVUxxQLOfjS1nTMNhX3h6L iAwLjA1 DHbrW4IuuoX3ABNvwMVaWCH eqBIObR6evocdi5jllwsfKa HzQMWqWZs6WHx7TZOfwLgiD iBsZWZ0 XgP4KFX2uHMnyV7ciBqqnre spL9sApx+NqdmsEaaIMS9HO j8Z9RsAwj4GVZrnWadTL6sk GFkZGlu Lx5nlDoyaObkOQ6aBEBtmbw ls905RlCal2svFGPiuFLeVV hlYOF1Z90ks0L8ZKBhRTOoX DG9uPA2 lC3owVeajfvahGXmsTzotsG pdEllQFygSXxvY537ISLxuK puZmZwDLt9M1JnOvr2OIUby JtfFN1c gBVvXUmjMo0xmBceeJupTR7 mONHxbsjor924TsGzj9nqJK AadZKoPWqkRBG7A35sf9H1X CMwMDAw EIK8wLF9iD1gfIbtbawgfVA mdDsgdmVydGljYWwtYWxpZ2 69KCYmvOtkDlSycGt6K5PrK cv6IOZx yKvtJH6otEEhPExkXf8reBs zjYctKL0pEPWlrqhpy789Ux Puc5coBQAspOVcFOpyOYV9D 58an2C9 OORjIIPfOZA0rXA8zO2nbVy nbjogbGVmdDsgdmVydGljYW xwQQxdS403COJpeMowChOno GllbnQg ECfcBKw4E0MvMejurGF+PC9 3QBYlHY95hHDyrLKze7dhrI g6MhEkXPOpNYT8nMnzWWfmz 3JkZXIt J63svIAcv7S0IYBqiVafyZG qWnEitGT0bW6vLUzstorbg2 ntozagEdgef2icgj46hG18S 29sIHdp ZHRoPSIzMCUiIHZhbGlnbj0 kyM3mCi0+CDIwqLF5hCL1mS 4pIJVaDlM7NNcaM249NoZyt CIvPjxj n3gko7lubMg4VpP9OZGygoH pkWllHUE5c9RrMr82Q45bRG dpZHRoPSIyMCUiIHZhbGlnb f2cyW7q Ii8+WVVyaSK4wJT5jM7yLgO xNkF5CYarG378BdYcaOPkCa llN36bW0BjfRQ+JSUpFox6K CBzdHls FV3bjKGaCUseHo2oHIT5JsZ wHdDfIVnjM2PtHQQwujyfqr qjuYI9XKAxYYErbP96Nt5fu DogMTBw mWPCvX1aksvjs7sewhbnLhM iPNKgPWa2LJg0EJKyhCipUx NyXRB8ZsN0IOZ7oGJanG2pi Glnbjog yQ4wL7HpAFGyzyjfMq12oM3 tIeRsDhW4MPoiUax+Q1JBV0 ZPUkQsIEJSRUFOTkUgTUlDS EVMTEU8 X2ZqIhp3MVOvaEtnMA0asBG lPVdzFa8orOcicKcyKU6zNT AvvarvBDBbfH2kXNOvyQOgc ExwRO9v DHKvoxqxn378JsGdLSY7CGY hiCSxW3KblC8nXyNoPTMtAB LzR7TbnZUfUWujK704XRsjB kN6JJYm kvYeR7LtJQHneApfCpN4v7I 9Ym0iRg6eQG0gBKc9IO67BZ 45cLWrh6O5uJP7X0IzKOSls mctcmln lNP1NKAiFJEftH83qXPvQPo lIx5vc3E4n864NBMzCELwbI 02Rp3klYybAMOdgBZUfL7hy xuzi2jy baoxKbHiHCHlFBq3GQt5OQR xbUolOwHcBKZ0SdL0PYJ2kH EoyC5sfMdhjojurU8mTjk+M jYgWWVh fdB6O5EuSqk9LRLtkBjmTT7 blZKeQBvfCi7xrZvqaVrfSV 5hQIGqmecvQNDihO0mIQYat HRvbTog UX4mVEKnukzut383HeLlNAP 0IYBqxUBcR9NswY5vJtQeOQ VgXVHwZ7GacIIcTRkgY208O GxlZnQ7 QQYwlmZtZ7TsGBErcRwxVlW 6i4M6Cx8GBU0WYKY6B1CcMz f5DJFlmGueBL5yqHHeVAlyA b1sgGam xBlcEX9yYKSxiomuBGCppT1 bSHFfwFMdjSjmKN2lQBLsam rsw675AhKiXHZ9XFKwlXOcQ 7AvnJ1q ShLbCSZmSKErW0ObjHEpSSt cG487FBnmHuV3IQFihxTrU4 ZaRCQmdIguAmI5a2K9Lw9CQ DwvdGQ+ HD90iu59U4GpCdazMpk7HTQ wTFL7oHB5sC9aMFLyWGagc1 T0aUS7E4ElwkCgmr3kw8egS XBzZTog A93rcTOlt0M5QKKfqVG1TYS uqQshXlCtfV76Ydc+PGNvbG xeq4MoWaqlr3pbz0matTs1Q jMwJSIg rpPpqDydEMS2w1MqIe52L05 sIHdpZHRoPSIzMCUiIHZhbG ygzc1xpP8bUw9+QFXcaCE5k ML8aF7h FqAfCqU1BRpgG183WnJvrWI tUsovn0hjx7vopHb7FaXtUX XrrvXvbYqkTSZ4j2WrQx37Y 2NvbGdy t6HfEcw6wb47vLJed6G8aXO 3T0SfSZZdnwxtsBQyfLvpIT 3lXHSzwgdlVPHnwA9bPNWgM 4m6KhYd OkW7YLimH5LewbQ3ELJftKH yYZNvwZVKfW4hxfxyw9oayr umJuUcJHMwXKw7VNw3YDHiz WduOiBs LRE5VsJ9AYW6gQYkrT6xpHq hodxhbL6mGxs+FZc1z6tbuE HlEU5fjHQ1VZ25MQ86lACiv 5C0yNJ0 I6NyMBMhnkswvvmeaII2QWJ lDQIebM88Ww3dsXssFs8tUJ OxNLV7ARTmtZQmM8LdbM6yH iAjMDAw GWUrU7MykQQbTOyvE385SMb xLcK7ZXLqmoJsS7ZfDDVjlX hySiR0g5T8Py9PAG10AK49V L41sGXk e3G1kTZ2T0HmTQOzpsuesxx qoMW1OQTyDMZauE82Yn7kcU hkCc9eRBFaMJS1NSEgeTLxA 7CndX3e VlPrEGYbOLTaI7MuuAGwCHy uW027GCfvYhI5HVHduhSpQ3 NxDTNdfQlzZzL9e1B9Fn6XJ m74SM74 WX41xMUoh9M8tCG7F1MiKBF qsltcnexucSC3UNWoMASzgT 95Om2yvDjtBm6bTQXzNOW3M FRpbWVz X9AdiI4bYbKePFKcCBWqP2K duMIqMBruZ930HTnhJuU9JU XpdtTwC7EqGQAmiGtkPdJ9y 5H0Cy4X BSkvofl9I9TkPbtjwPW+PC9 1ZKUiFQ80rMZtgBHne8wkrW v6UxLfDARnGUC6nRxqCEzln 3JkZXIt Y29 (more content not included)... Normal [facility] POCT Rapid Strepon S. pyogenes Ag IA Ql (Unsp spec) Negative Invalid Interpretation Code [facility] Comment on above: Performed By: #### [id number] #### [facility] (DEFAULT) [address] [place] [address] C Throaton 09-26-2024 C Throat Normal throat justine isolated No pathogens isolated [facility] Comment on above: Performed By: #### [id number] #### [facility] (DEFAULT) [address] [place] [address] Coding Summaryon 09-26-2024 Coding Summary HTMLBase 64 UppiljafQVo1mFa+PGhlYWQ +EA2KBAHzG67gtULflC3gV1 NMTElOSywgQVBQTElOSyIgb cCrAL2pvUOtKXXl IC8+EA5bRXTaPwhxhQUdn0Q 0nGV6X04clr2tZMbzgSB3CR PgCuHvxfuyg5bamXb3DVztM mluOyBt KNJglF01BLM8yY54Ph01yNY mrJYfp5brfFz4WlVjVDCqAF P9bGqgXOoxa7OxHNIqS43qc ZZor1H0 EPTlfQfyoAIwCxFbcCD0fE2 bFWmyejqaj6ggyuiqYut5qa 16eNAfx0N8jQG8S3PjopS6D GJvbGQg XdoasBBXkK6eyyjzp1iidgb uFzXpWIJjOWd3RCm3BFKvaL leHqHjDP36DEY7CKZcffKzO 2FsLWFs fZskAxR2x9J6Ny9VH9GDMpm eY3MVHJLMRJpupHT+PC90cj 34U1EtJxfcVhh9IBSdISW4g LO1sX2n STEiMHqyu8I4nLD5W6RhphJ wly4px0veLCQdYLxcA86gcD Dni0F9DOXbbJY2QKDtuEgeA iBzaG93 Oyc+LDWxlOmel7WvKcdai2a fr2evnPx5CqweBNFzwuKihG jqLHZ1r4CxJm9xDHAboZR1q AB3hP5v ZgUgMjL3GNrfC216YnXrvKV tVuozE72gM3UjwEA+PHRyPj a8TCVgsZbyGT2hJ7HqEKAcp mctbGVm tRxpCK8bTVMhalmsTCZnlD6 uYZDmC2q9EmQdGuI9PHpxW8 HsHJOehuayCk96vO9eLqGjB dA2XTzo V9FlxkM9GZUbxTVwWFmjQEQ 1G70eo9T0ZYUzUPKoJMI5cH S0nQ2gvAzoxuevmPZufJuze mVydGlj QRuyXKkvP096JGYhsDbsNaI vZGluZyBEYXRlOiAgMDEvMj IvMjAyNTwvdGQ+WBFqFVW3h WxlPSAn cIQpSFvlXp7rqHnawSfqPF2 tDCJzkhkgTJStwS1oLNIpbU GioKjgMH2eFRPtxpsal098G iAxMHB0 MXQitYVpY0ZoxC7kWcXkEDQ jFSFoV3VabRFdPIgjU790WL haIjW4VXWyhnZwS8LtIJNkg WduOiB0 j8R1Tx9Lb2WzxjkkS5LfkZC yWzOlChylNUl2R7CgPjrrlA I+UG57YSLkBR15HKq3FGN9c WxlPSdi PHFwM4KqjM3xThOfQPBgVET kOyc+PHRhYmxlIHdpZHRoPS zcYMVzBtKofKduVN8mBj0zD GVyLWNv aFbxjQJtVkEeu2jtLFApUVb qXA3hsSgyA1LogZK9KIYic8 l2Be16J86xM7EjdLD+PGNvb GG6rCL9 jE1zDkVuXyG5GXaaN288VmG esPZhIqztn3ark0odiLx0Ht L8YAXwlnKqrOxgBCI9c2EiF e72E53z IHdpZHRoPSIxNSUiIHZhbGl dmm0kaT3dNh5+TOTalXP4sE F7rR3cAwZpIzO3GJjdH683I nRvcCIv Ahlto7yhk8jtvYg7FhGrRHB sngYrkAgmXRZ7u1VsZl91Y9 CuqMcce7KvMts2gh91ePDox 6S6vMY4 F1BnLEVqjublzPUwkCcbZR7 gOSQuicqmCSGprO6kOTCvL0 f0HcVbCuO1IAxjM1SksnI6R GJvbGQg MMIqnEOChD9mzcczx3dihsi vWhTxLKAfWYr5DTl9VTHjvG saDlCgOVQ2NlG4DWQ2mNKbs W0kgGfh elutdE7gQdg+VTB3dZYipMN YFM6qFkbqyFH+BBYaYXD6kC lyABlmSCCnsY6eSZZcM4q6O iAwLjA1 AGukC9KxudH4TFBpjVZwULY nwYYMnE4qmdrst1fdsqmiLr SaCJWdWKc1QDk2DXBdtUzuR iBsZWZ0 KmC6KDX2lYGswQ9exQypgmu amX1bMxi+OcqpwFndRZV8EX q5B2LcTmh4ACZmxItaWY1by GFkZGlu Yk7diGnirAorOJ0dMNIflrf zh229KhXyh5vxLFYwiYJbRD bhZZZ9A25lt0D5EWNjHRPyN PU8bAT9 kZ7bwHbmrtyycSPfoHpeahH ahZouAFmmWMpaR525EQGluA moAdYfKGj2Y3RpXzj8AMIxd EtvWF2f gDUpKAgdHp4cyWizgQiaZH7 tOOUknfdfi004SbPxm2muEY YzoYIgBHmrSYF1E54ub9E9M CMwMDAw NHU3cGG1jN7sjUeeexkqcIZ mdDsgdmVydGljYWwtYWxpZ2 95LBLebXudVtTbeSo9I7FjB bw3KHOg xKexPL5kaIYcASgzNl1vaGd rfSexOM7fCWCuhglcc009Yf Ikr7hqFRBovCDnOMdvRNJ3C 45hh4G7 HPXhGHKkRJZ4fFN3gG4jiHx nbjogbGVmdDsgdmVydGljYW rqLJpsS538VIXxeMczHxArk GllbnQg HSlnVZi1R3CnTzmhoGP+PC9 0AVEcJI37hIKkgAEjs6eqdS g6QxFdWIAyAKX3sXqmZPvmu 3JkZXIt V17hpBPfm0H3YILpfArggVR wLnJsxBU3kZ8fOKktfbqsv4 hveweqPrvow3ujka44bY29T 29sIHdp ZHRoPSIzMCUiIHZhbGlnbj0 ibN1kMi9+DNCqpMT9eEE8wN 8uCPClFwT7SBhvR004NiAqa CIvPjxj p4xbu9xwyPd2MoA3WJNiioS zgDcwOYU2z9SyZc00B07aZD dpZHRoPSIyMCUiIHZhbGlnb i4hmC1e Ii8+EMHlaMU3iMM9wM0eTpB vVqL1ITcnX909YiWvdDGsEo jpQ23xB4SenNJ+YBEwRcj2U CBzdHls UY6grBEgMVgaEc0eLEO3HnZ wCwRxCIwwT8NgMGFpialydn tpnDH3TNPfYBLmiT85Im9tv DogMTBw lSCHbK1jbwbor5eomeyfZxW lPVTkLCj3ZEy0QXDawPzqSr YwTBO8YiV5ILN8lEOqmP2en Glnbjog oG3dT0OwQBIjemkbFb12hE3 gLqJaJpW4VWobJgx+Q1JBV0 ZPUkQsIEJSRUFOTkUgTUlDS EVMTEU8 S9UeYkk1KQUyxGbjPC2grTF gYQvjZa2lhJjnjEcsPC2sBT VvgvjhCNFerH8fFSCepTJkw YpyRT7t PUMlbsfht548VpJmFUQ6EMZ aiBIzA8LbuM2jHvFhEREgSC PbA3PcxGMkFHhyW480WIljH oJ2XMKw ybKkZ1CxENNdgOnvKeX5g6T 6Pf2vIu5lLS7sSUr0OF56UM 01gUCio1G7zUP8F5DcVZLxl mctcmln wZN8GSPcBORhqA43jPZoALc dXr4up0O8s260BUSfAPEoeB 00Qm0axUhcBUDafBWCwF1ku eubn8wr scdcVzYcKUTrJEf5XEh0ARF ucGulNcKiZLX6MdK2CXN5pA RmpJ4qrNiqunlisZ2cGac+M jYgWWVh vfN7T6QlYhj1WXRuiMtgEF7 cqQTtDBivHw4nlNcsmPukCC 8aXLZptwchCRSlbQ0bAFAyl HRvbTog TU1jUIXxjxxbp513SsByHGB 6BRWzhLMaL3WojE0qXsWbNP EcAAXhS2KmcJSfDUtrT147Z GxlZnQ7 HKXffnUtP5XmPGFvnHccMiO 6r5P1Ze1OBS5DBPC1F9ErXw l9QPAlbKniMS8vzVLjZKyqQ k0srHbi uWjoLD1zXKDlknstIMSmuZ0 bJXSduDGrqDjeZQ0eDVXtzu yyh823LeYeZHM2CADvqQZyO 5LgzG7z SxWrNFEtEZIfQ5WqqFUySQm hI928PMlsKlM7PZYmarWyF4 TnCQGiaWkfUtT5a4H4Tz8VM DwvdGQ+ UX02ck86J2MdQvsjEfz2NYI rDDW3sGV0hP0xRYRbWCfhc7 I0rAZ8D2FgchXsns2hx9vfR XBzZTog L34owGUmb7J2PKGrcSU7PSA wqMpkUnThiZ23Lob+PGNvbG okg2MdHrjni2zra8wyeLi0K jMwJSIg vdUvlRivGEP2a8IzJz93W96 sIHdpZHRoPSIzMCUiIHZhbG mmhe9jrX4pRj0+PMEatLK2b JZ4dS7a WgLqBjL7KYcyO482PqUzkVP wRizyc9erl4usvHu4NxEiVV UtzqMmtNrgITW0w1UzDr92V 2NvbGdy j6SaNuz9jn11bWIys0N0sYA 1H3KxMXXdqaobyHQonSwoYA 4eQDBqigurCVDlgR1vOVPiU 2t1IeWv QcR9CSpbO8AswaY5XUEllHB hUYMvjDLSwL1uhofmo4wjty jiYnLrFVPcTGf6KSh5QYWqq WduOiBs ABV8RuX4ZDH4kDKoqZ5qlMi sminduN1aUdd+HSh2k6omiL JeFD9aeVO2RG71AU32lFZgg 7D7wYQ7 A8MjBEVzxpfobdcmrFN4MIQ hSCYwtV09Gl8psJioAz4kNX WwQFV3YFXnvEBcZ1IxxB2iZ iAjMDAw UEClN9RiqKZfWVgcY921ZWm jKrK2CLJkmqIuQ4NsYQXfmS pwMbQ3k4H4Qh2ZYB14CE90M K88eXAt f7U6zPC9R9FwGZJwsviypor gqHU3CJBxYSOkgH61At5glG kaTn6dKDHuIVE1EVEdyKRoF 4NlyU8q LqQtHLWmVKYnU4ZobXPrNEh sP912UBlrBpK6ZPYniwCyP6 IoFUHrmZaaZcJ6s9S7Vn5UA l59EQ35 NJ09hQVvt9X7hEB7E0LaKNL buttggrbbyWS8KAHzWGUxsW 40Aw8koFimDf0iCWTvJGP0J FRpbWVz S5NvuP3nRwGvFAXqGBHkB1X niPQhMRgrJ784AIjuKzV1TO OpprFsL7XcWVSjwEqgXlC2p 1F7Vy0K TFesoof5T0TiVglmcXO+PC9 5DDLmHN76zJMucPLwl2efeV t0DwNtMCTpARE2pGtwYNchk 3JkZXIt Y29 (more content not included)... Normal [facility] ED Clinical Summaryon 2024 ED Clinical Summary [facility] ? Urgent Care [address] [place], [place] [id number] Clinical Summary PERSON INFORMATION Name: SHERLY ASTUDILLO Age: 24 Years Sex: FEMALE : 2000 MRN: Acct#: Visit Reason: UC - Throat Problem; THROAT PROBLEM LT SIDE Arrival: 09/24/2024 12:32:36 Discharge: 09/24/2024 13:30:00 LOS: 000 00:58 Check In: 09/24/2024 12:32:36 Checkout: 09/24/2024 13:30:00 Address: [address] [place] [id number] PCP: Radha Gomez MD PROVIDER INFORMATION Provider [...] Follow-Up: With: Address: When: Radha Gomez MD [address] [place], [place] [id number] In 3 days Comments: You have been [...] next 3-5 days, also f/u with your ZIPPER MEASURER, for reevaluation, return to the emergency department/urgent [...] DIAGNOSIS: 1:Oral sharon; 2:Pharyngitis Patient Understands: Comment: [facility] ED Patient Summaryon 025 ED Patient Summary [facility] ? Urgent Care [address] [place] [id number] PATIENT DISCHARGE INSTRUCTIONS Patient Information Name: SHERLY ASTUDILLO Age: 24 Years Date of : 2000 Reason For Visit: UC - Throat Problem; THROAT PROBLEM LT SIDE Arrival Time: 09/24/2024 12:32:36 Primary Care Physician: Radha Gomez MD Attending Physician: Larissa Cobb Comment: Patient Education With: Address: When: Radha Gomez MD [address] [place] [address] In 3 days Comments: You have [...] next 3-5 days, also f/u with your ZIPPER MEASURER, for reevaluation, return to the emergency department/urgent [...] these instructions at home: Medicines ? Take yevs-tzg-ozconoz and prescription medicines only as told by [...] cool-mist humidi (more content not included)... Normal [facility] POCT Rapid Strepon 5 S. pyogenes Ag IA Ql (Unsp spec) Negative Invalid Interpretation Code [facility] Comment on above: Performed By: #### [id number] #### [facility] (DEFAULT) [address] [place] [address] Urgent Care Recordon 025 Urgent Care Record [facility] ? Urgent Care [address] [place] [address] PATIENT DISCHARGE INSTRUCTIONS Patient Information Name: SHERLY ASTUDILLO Age: 24 Years Date of : 2000 Reason For Visit: UC - Throat Problem; THROAT PROBLEM LT SIDE Arrival Time: 09/24/2024 12:32:36 Primary Care Physician: Radha Gomez MD Attending Physician: Larissa Cobb Comment: Visit Diagnosis: Diagnoses This Visit Oral sharon (B37.0) Pharyngitis (J02.9) UC - Throat Problem ([id number]) If you received any narcotics, sedation, or [...] documents With: Address: When: Radha Gomez MD [address] [place] [address] In 3 days Comments: You have been [...] next 3-5 days, also f/u with your ZIPPER MEASURER, for reevaluation, return to the emergency department/urgent [...] and treatment you received today in the [facility] were for an urgent problem and are not intended as complete care. It is important for you to follow up with a doctor, nurse practitioner, or physician?s hotel assistant manager for ongoing care. If your symptoms become [...] so we can reach you if necessary. [facility] has provided you with a complete list of medications post discharge. Please inform your river tester/provider of your visit and for further instruction on these medications. Any specific questions regarding your chronic medications and dosages should be discussed with your primary care physician(s) and/or pharmacist. New Medications [facility] [id number], [address] [place], [place] [id number], [phone] clotrimazole (clotrimazole 10 mg oral lozenge) 1 [...] it is (more content not included)... Normal [facility] Telephone Encounteron 2024 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 Authentication Interface Message Text Called patient lmom to call office for sooner appt... we have them available. Thank you Normal [facility] DRUG SCREEN RAPID (URINE )on 09-10-2024 AMPHETAMINE SCREEN URINE Negative NEGATIVE [facility] BARBITURATES SCREEN URINE Negative NEGATIVE [facility] BENZODIAZEPINES SCREEN URINE Negative NEGATIVE [facility] BUPRENORPHINE SCREEN URINE Negative NEGATIVE [facility] Comment on above: DRUG CLASS TEST SYST [...] 300 ng/mL CANNABINOID SCREEN URINE Negative NEGATIVE [facility] COCAINE SCREEN URINE Negative NEGATIVE [facility] METHADONE SCREEN URINE Negative NEGATIVE [facility] METHAMPHETAMINES SCREEN URINE Negative NEGATIVE [facility] OPIATE SCREEN URINE Negative NEGATIVE [facility] OXYCODONE SCREEN URINE Negative NEGATIVE [facility] PHENCYCLIDINE SCREEN URINE Negative NEGATIVE [facility] TRICYCLIC ANTIDEPRESSANT URINE Negative NEGATIVE [facility] US OB 14+ WEEKS ANATOMY SCAN [...] GDLNon AGE GDLN ACOG TESTING Note . [facility] Comment on above: TESTS RESULT FLAG UN ITS REF RANGE LAB Clinician Provided Cytology Information Source.............Cervix Other.............. No. of containers..01 ThinPrep Vial Age Algo ACOG Crystal... -03 10 FLAG LEGEND: L-Low Normal,H-High Normal,LL-Alert Low,HH-Alert High <-Panic Low,>-Panic High,A-Abnormal,AA-Critical Abnormal Performed at: 01 =G [facility] [place] [address] Melissa García MD, IGP, RFX APTIMA HPV ASCU Note . [facility] Comment on above: TESTS RESULT FLAG UN ITS REF RANGE LAB DIAGNOSIS: 02 NEGATIVE FOR INTRAEPITHELIAL LESION OR MALIGNANCY. THIS SPECIMEN WAS RESCREENED PART OF OUR MANAGER SCIENTIFIC PROGRAM. Specimen adequacy: 02 Satisfactory for evaluation. No endocervical component is identified. An endocervical component is not commonly seen in the patient. Performed by: 02 Emilie Frost, Metal Neutralizer (ASC) QC reviewed by: 02 Lauren Ness, Supervisory Metal Neutralizer (ASC) . 02 Note: Note 02 The Pap [...] <-Panic Low,>-Panic High,A-Abnormal,AA-Critical Abnormal Performed at: 02 WB [facility] [address] [place] [address] Melissa García MD, Performed at: =G - [facility] [id number] Instrument Assembly Supervisor: Melissa García MD, Phone: [phone] Performed at: [address] [id number] Instrument Assembly Supervisor: Melissa García MD, Phone: [phone] [facility] RECURRENT [facility]AGINITIS (HTRX)on 08-15-2024 ATOPOBIUM VAGINAE 0 [facility] ATOPOBIUM VAGINAE Not detected [facility] BVAB 2,3 (BACTERIAL VAGINOSIS ASSOCIATED BACTERIA 2, 3); MOBILUNCUS SPP 0 [facility] BVAB 2,3 (BACTERIAL VAGINOSIS ASSOCIATED BACTERIA 2, 3); MOBILUNCUS SPP Not detected [facility] SHARON ALBICANS, PARAPSILOSIS, TROPICALIS 0 [facility] SHARON ALBICANS, PARAPSILOSIS, TROPICALIS Not detected [facility] SHARON GLABRATA 0 [facility] SHARON GLABRATA Not detected [facility] SHARON KRUSEI 0 [facility] SHARON KRUSEI Not detected [facility] CHLAMYDIA TRACHOMATIS 0 [facility] CHLAMYDIA TRACHOMATIS Not detected [facility] GARDNERELLA VAGINALIS 29.341 Abnormal [facility] GARDNERELLA VAGINALIS Detected Abnormal [facility] Interpretation and review of laboratory results Abnormal [facility] MEGASPHAERA (TYPES 1, 2) 0 [facility] MEGASPHAERA (TYPES 1, 2) Not detected [facility] MYCOPLASMA GENITALIUM 0 [facility] MYCOPLASMA GENITALIUM Not detected [facility] NEISSERIA GONORRHOEAE 0 [facility] NEISSERIA GONORRHOEAE Not detected [facility] TRICHOMONAS VAGINALIS 0 [facility] TRICHOMONAS VAGINALIS Not detected [facility] GLUCOSE TOLERANCE 3 HOURon 1 10-11-2023 GLUCOSE TOLERANCE 3 HOUR mg/dL [facility] Comment on above: GLU FAST 83 (<95) Co l: 08/10/24 0708 GLU 1HR 131 (<180) Col: 08/10/24 0812 GLU 2HR 124 (<155) Col: 08/10/24 0912 GLU 3HR 95 (<140) Col: 08/10/24 1013 CL[facility]IS[facility] Urinalysis macro (dipstick) panel (U)on 08-08-2024 Bilirubin, UA Negative Negative - 4(70) +++ mg/dL [facility] Blood, UA Negative Negative - 50 Osvaldo/mcL [facility] Clarity, UA Clear [facility] Color, UA Yellow [facility] Glucose, UA Negative Negative - 1999(110) ++++ mg/dL [facility] Interpretation and review of laboratory results Normal [facility] Ketones, UA Negative Negative - 160(16) ++++ mg/dL [facility] Leukocytes, UA Negative Negative - 500+++ Edison/mcL [facility] Nitrite, UA Negative Negative - Positive [facility] pH, UA 5.5 5 - 9 [facility] Protein, UA Negative Negative - 2000(20) ++++ mg/dL [facility] Spec Grav, UA 1.02 1 - 1.03 [facility] Urobilinogen, UA 1.0 0.2 - 12 mg/dL [facility] GLUCOSE 1 HOURon 07-31-2024 Glucose [Mass/Vol] 132 mg/dL High NINF - 13 0 mg/dL [facility] Interpretation and review of laboratory results Abnormal [facility] Coding Summaryon 07-16-2024 Coding Summary HTMLBase 64 EaufrzdzFIb0fLv+PGhlYWQ +BF5YZYMaL43exQYzsF8yV6 NMTElOSywgQVBQTElOSyIgb pTsRU6ouNLpFHZo IC8+TS8sLRFkJpucqTRoq6R 8cOY1F42wlt5dIVyecGL5NI QiOiXfqayny2dxmRm3DNikP mluOyBt DPElkI09HHK3kR35Cj88aVP mtZSyd5udqIa5LtDjQVIxXZ O5zXexROizq4YfVXZfN57js SRey0C1 APVmiMdnxWWzEvAbaWG0dB3 cMYcipewwa5wvchdnVet1bb 95wQSnt3V8bOV1W0ZcwfT8W GJvbGQg SnqmjKSEkP3uabmnf1ornrg kQnLxIGHwNDa5LFa7OISfaG wsVhZzPG54KTP0DWRtskAuA 2FsLWFs zPzaIyP8t9E3Om4ED8ZYApi gG8VYZHNAUJcqpNN+PC90cj 81R6ZhDbcnIpq2CRHzKOG4k ZF4cU1p XGZmZGwea1J5yIZ5W7TxhvU vjb4np9jgDYGoUDduX46bkR Enp2L4KBFxyRI0SCNieBasJ iBzaG93 Oyc+WKXofUmcr4NzTfsui7b zl7foxNn3BkuoPLZrpmLlaQ tpXUC8v8YfCo8kHCYxbPD8q UE2zN3e FbZrJbX7NWfsA683OyHpkBE aScelE27lC7NahGS+PHRyPj h3MPWzgTwkTS2xF1NkCJWhg mctbGVm zXjjBV5sQWRuqvgvYVBfaE4 iEKPmA2r8ObGwBaY2OMvqP2 ZeVZSocwxhTx86wS1lFwGaA qL4GHhu I9HejrG1THXspELwZLfnMCW 7L26lz9A9VKZzDLVrUFR3qX G0uD9ttSoqhrtknGDgwPuzs mVydGlj XUxhGMyzT002LHGvpUhnUsV vZGluZyBEYXRlOiAgMTEvMT EvMjAyNDwvdGQ+ZZMlJXB9m WxlPSAn pIUqFVkrRy1ekZydvMdvWN0 kUTQbngzoIDFuqR9mJRZjsL WxoAxgDJ8xDSHyntipf473A iAxMHB0 GRPiuAUxK7BrdQ2dKkJbVOC iPKEmY1VixYSuHVtvA273PG tjQaU5KJLmcqPsN4OiHAMom WduOiB0 n1Q6Nm6We7IhemxyH7GznRI vSpFwNtdsOQm7H6CpJbckmK I+JL13AKHuNI50GRe1ONF3j WxlPSdi QNJaN9XcbM1zVeVfVXGgUDG kOyc+PHRhYmxlIHdpZHRoPS llUQWcDgDwcGyfPV2lGs3qT GVyLWNv gVcizWIsMwRxf8xsBOAnSIi vRN7foUopK5PspJH8TDUph0 j3Zs37M03mV6ZmyTD+PGNvb AZ1jLI3 eI6cMdCnXoF2OBwfV481EhO vjBTaRxrnx9por9quaVl0Yf T4QPExpjWjbXfdNMR2q4FfF c23L57y IHdpZHRoPSIxNSUiIHZhbGl xvd2iiD9lBq5+VQMeoAM7yJ F4jR7xVoDkVuI8AHalM968T nRvcCIv Mqren6aum0vmgBa2IbSeZMA xlzKsrBxnJAR9k0DuNe48K3 SwbHoty1DdAur7qw97uJYdk 1J6iKP3 T7JpFJRtrbkskLBsnIxmOG2 hCOKmqhgfMOElyP1cWFMlA2 y4ZwOaYqW6ACmrY4JvcqR0U GJvbGQg NYOciBJYzP7lfvkjs1mvodf uUcWyDVFdQZl5QBk4QUOcvJ gnGuGoPVZ2FzI3LPX5bNOyg V3jwOrl qhdofI4vHzh+OOL8kOXjiGE HMQ2bEnvmoBR+YXOxDYV4yJ fzTYhsLVWgjX2oFSSoA6x6P iAwLjA1 DUgwA3AkonF9JLLtgXDqWKQ ijEDQdS2aayvnq7imyydpPy QwDUPuTIi6KUd8CDSxcYuzH iBsZWZ0 KrR5APN1tHDyiY6hxQdddma pgE4wRpz+RfhihMacDNM0MI b6Z5SmTje3NRNbkUcdMT3yz GFkZGlu Jr1ryAbotHobXF4iPSKkpqp yu220ImDmt1peTRTxdLYvRO qyXQI9D04gq6J6LVMdRYMxW DP5vVC6 vQ3qlWfttlqukOWjtMiersG yqMdkMPvsXMqoP443FUDdrY vzOlPuGYm7Z8AxCcc5NLBpa IooOD9t zIIwEJzkLd9fnVttoEfoZU7 aJUGqtnytl557GlYec3koVQ TzbRPgSQiiZCB3Y26fv8T7C CMwMDAw LKS0pDZ5pX7goWcabqovgYD mdDsgdmVydGljYWwtYWxpZ2 51CHOjoAekFlRzpMa5H3WyK xh8ZXZh gQtbQG5wlBUxKXwqLi0rtPp tsIuhRR3dIKMgyubpv722Fy Jiq5quSITdnKQaEDfxRCN0P 38iu9R9 AYZqZDJpBVZ6gAJ9rG9rfKa nbjogbGVmdDsgdmVydGljYW geJYwbO467OLOvkBehQmGja GllbnQg YJzwGXs4V9EaNsiicPL+PC9 4OFAeOZ92hYQbyFUao4abjM b1TvWnUWRzGXW5iJxbBJuzw 3JkZXIt A16ixARce6V9TKKvmXepfNE yYjRbaQO6oM2nAUsxostyh5 xpzawbTimhk6rbnm45mH74N 29sIHdp ZHRoPSIzMCUiIHZhbGlnbj0 iqG9wCw1+REMlzBB2sPQ9mU 8jYRKhQrJ1KStgI310IuShx CIvPjxj l2nxm7lrtOd1GnE5YXSahxL jgCgxUWM3q8TrRk49H96gZQ dpZHRoPSIyMCUiIHZhbGlnb m6lxO2f Ii8+BAOyxBM0bKH1yY9eSgL zWmE7TZfrM604OlDppOAnZp xoV61bR4SwnVM+IBHlTvm2L CBzdHls MW4wdOVxWCmzXy2vKOJ1LwX jXfOaBRpvX6CzQUTvfergbb vttSJ7JIBvRJFowA87Pp8zk DogMTBw mMTUsQ4dkywgn3mpxywgIvZ mPJGqRYu1VVw3XOWsjEwdNp LxEAY2MhG4EHD6fLVhtP0ak Glnbjog iC0pR4WtXEXvkubrHe83yP1 xJgGoSkR1QDocEye+Q1JBV0 ZPUkQsIEJSRUFOTkUgTUlDS EVMTEU8 F9QwVdp3MZBvhZghWJ9xjMG rMHyeQd0jxOfctZzwDU0aXN UjryyiMVQueU8zQKUztGBvu KffVH5c IFErgyerl598ElWwXAG3WAL njBPfM7SqvP4oVwEzGKDcGV ZoY4KmtEVcTMdhY936HSoiG lZ8PCQa vsImW4KaKYIuoCmyZbH0c1A 4Fx8nXs6gAC9uPKl8ZD94TI 33vURea6A3qRH6P2ItJNGyg mctcmln dKS3ZMPvKQLeiE53jIJzWYf sGu0nh7S1u577ZRVsHDJbpV 70Na2viEktKSEekRQNlE4uu cusy9eu cadoZyPwHTIlGMt6YJw8MMX iaAwkFwBoNQZ2BlU3AMF9nF OdqY3qgAzzeenexT6uIdo+M jYgWWVh epD7G5LgGdu6IZSgzHalVL5 wmSPfHUkmVc9yxNyfpSpvTG 3jQXYmlxnzYREcwN8sGQQmb HRvbTog BH3dHRKptdkxl228YjHpAQU 6LNCzaBAjT7OhsG0zBpWcOH DzYVKvM6NloTUcPQbiK721K GxlZnQ7 SUMsdmTtM1XwSOFlkYkqTzI 5g2I5Hp6LYE3KWMX4S9NqRt t4CMVlfRhrBP9wbQPeUIrqG o5bwUap kItoPO1sFPAcrycqXULllU5 oHSJwuZDxcQyqAB5tADHyqp txy706FfInLDM0DQAnjBIqH 2YkuV9j FmPzQBSlKMChV6KzgORzVBp hD439ILmnJhG5GWEndjYtN7 CuTJTalXxxWuS8p4D4Fr2XI DwvdGQ+ RK51gh53D6XwYujmMub7NSK hGLN5nET4bE0zLLVgZElae9 S0bYU5C2LtmuTjth3ys1fuQ XBzZTog S28qwAPnp9O9INCogCO6MOL jyXgyIeUblA44Zfv+PGNvbG hut8GqNstcl6xug7tvtDd7B jMwJSIg rrLjrNwmWGT1s7BkZu96L12 sIHdpZHRoPSIzMCUiIHZhbG vkov2imX3dWq7+FFRxrLK7g VS9cE4h YqYaQnV3DBjuL873WsDhoAU eFxpep4nnh5luaGc5EwTmUU JdsfDqiLgmWIT0b5OyMy47N 2NvbGdy d5JqSou0ak77lBFwq2V4cBS 2A0PwGAQswgcudYQhaMhvEJ 9jPUUflnidKKHdeU7gYKRoQ 2d9IgUx SdV3UYjzI7CzpnR8VOLpuWZ dQNOlcOECqE4pmmpnx2rbcj irGoKvQXNyNQs0KLe3TXUsp WduOiBs FCY0QfV1MZF9xJGqjK1zuRa hakyaeF6gFft+YOt9j5rviM DmTP0wbYU3GU68QM45eCWua 7K0gTC1 V6JkCYKerbfwimfqqIZ2CZG tYLAwrH54Iz7sfDyoYf5fXB DbJTA3IDHgvYMkS6XcgO6eU iAjMDAw DCQaI2QjaTFvXGkcD059IAt yOnI6YXAaitCjF4OaEDMocI egYwD3r4D4Az8JVY75GZ20A V38uOPy z8P9zAZ0E3JgEJHhqtomido geJP3GJEySZXdiG10Gu7beF zaSg0qAVKtXBA1GMVulYSsN 9FzqS7s KaWkTJGbNIMrL9VnaSFoQQo eX213WYudMvC2LIYotqSrB1 NsHHNqtQvfCyX5l1Z1Nl4SY v21EX60 NH84kLPhr1P2lHT2D9QzUZT jlkiksygmbZU0UPWsJGAtkJ 67Af7wzIvvSc9qYQLeTXI6U FRpbWVz S7JcrM0sSuIuRARwFZFqR2Y zqTCtTKnyW038AProXnU4BI KruaXuV6MjDECyxJwaAkB8o 9N6Fa6J COknbet0D6HoGrmmwNI+PC9 1SRFgYQ94eSBayYQws9byoQ p5MiCsTFJbZTG7wMivOLdma 3JkZXIt Y29 (more content not included)... Normal [facility] Urinalysis macro (dipstick) panel (U)on 07-10-2024 Bilirubin, UA Negative Negative - (70) +++ mg/dL [facility] Blood, UA Negative Negative - 50 Osvaldo/mcL [facility] Clarity, UA Clear [facility] Color, UA Yellow [facility] Glucose, UA Negative Negative - 1999(110) ++++ mg/dL [facility] Interpretation and review of laboratory results Abnormal [facility] Ketones, UA Negative Negative - 160(16) ++++ mg/dL [facility] Leukocytes, UA Positive Negative - 500+++ Edison/mcL [facility] Comment on above: small Nitrite, UA Negative Negative - Positive [facility] pH, UA 7 5 - 9 [facility] Protein, UA Negative Negative - 1999(20) ++++ mg/dL [facility] Spec Grav, UA 1.025 1 - 1.03 [facility] Urobilinogen, UA 1.0 0.2 - 12 mg/dL [facility] ED Clinical Summaryon 2023 ED Clinical Summary [facility] ? Urgent Care [address] [place] [id number] Clinical Summary PERSON INFORMATION Name: SHERLY ASTUDILLO Age: 24 Years Sex: FEMALE : 2000 MRN: Acct#: Visit Reason: Vaginal discharge; VAGINAL ITCHING/DISCHARGE Arrival: 07/05/2024 10:15:34 Discharge: 07/05/2024 10:59:00 LOS: 000 00:44 Check In: 07/05/2024 10:15:34 Checkout: 07/05/2024 10:59:00 Address: [address] [place] [id number] PCP: Radha Gomez MD PROVIDER INFORMATION Provider [...] Location: Home PATIENT EDUCATION INFORMATION Instructions: Vaginitis, Usbj-ph-Urxe Follow-Up: With: Address: When: Radha Gomez [address] [place] [address] Business (1) Within 5 to 7 days With: Address: When: COLE ALONSO [address] [phone] Business (1) Within 1 to 2 days DIAGNOSIS: Vaginitis Patient Understands: Yes - Patient/family/caregive r verbalizes understanding of instructions given Comment: Normal [facility] ED Patient Summaryon 024 ED Patient Summary [facility] ? Urgent Care [address] [place] [id number] PATIENT DISCHARGE INSTRUCTIONS Patient Information Name: SHERLY ASTUDILLO Age: 24 Years Date of : 2000 [facility]: [id number] Reason For Visit: Vaginal discharge; VAGINAL ITCHING/DISCHARGE Arrival Time: 07/05/2024 10:15:34 Primary Care Physician: Radha Gomez MD Attending Physician: Spenser Fang Comment: Patient Education With: Address: When: Radha Gomez [address] [place] [id number] Business (1) Within 5 to 7 days With: Address: When: COLE [address]ONSO [address] [place] [address] Business (1) Within 1 to [...] and use condoms. General instructions ? Take pccw-flj-yejrxht and prescription medicines only as told by [...] provider. Document Revised: 02/19/2021 Document Reviewed: 02/19/2021 [employer] Patient Education ? 2023 [employer] Medication Information: The exam and treatment you received today in the [facility] Emergency Department were for an urgent problem and are not intended as complete care. It is important for you to follow up with a doctor, nurse practitioner, or physician?s hotel assistant manager for ongoing care. If your symptoms become worse or you do not improve as expected and you are unable to reach your usual health care provider, you should return to the Emergency Department, we are available 24 hours a day. For those (more content not included)... Normal [facility] Urgent Care Note- Provideron 07-05-2024 Urgent [...] History Medical history: Resolved Ankle fracture, left (10822092): Resolved. 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 Surgical history: Cholecystectomy (78501812).. Family history: Anxiety Father Sister Diabetes mellitus [...] doctor a (more content not included)... Normal [facility] Urgent Care [place] 024 Urgent Care Record [facility] ? Urgent Care [address] [place] [address] PATIENT DISCHARGE INSTRUCTIONS Patient Information Name: SHERLY ASTUDILLO Age: 24 Years Date of : 2000 Reason For Visit: Vaginal discharge; VAGINAL ITCHING/DISCHARGE Arrival Time: 07/05/2024 10:15:34 Primary Care Physician: Radha Gomez MD Attending Physician: Spenser Fang Comment: Visit Diagnosis: Diagnoses This Visit Vaginal discharge (823574273) Vaginitis (N76.0) If you received any narcotics, [...] documents With: Address: When: Radha Gomez [address] [place] [address] Business (1) Within 5 to 7 days With: Address: When: COLE ALONSO [address] [phone] Business (1) Within 1 to 2 days Medication Information: The exam and treatment you received today in the [facility] Urgent Care were for an urgent problem and are not intended as complete care. It is important for you to follow up with a doctor, nurse practitioner, or physician?s hotel assistant manager for ongoing care. If your symptoms become [...] so we can reach you if necessary. [facility] [facility] has provided you with a complete list of medications post discharge. Please inform your river tester/provider of your visit and for further instruction on these medications. Any specific questions regarding your chronic medications and dosages should be discussed with your primary care physician(s) and/or pharmacist. New Medications [facility] [id number], [address] [place], [place] [id number], [phone] terconazole topical (terconazole 0.4% vaginal cream) 1 [...] Eating food (more content not included)... Normal [facility] ALL CBC WITH AUTO DIFFon BASOPHILS ABSOLUTE AUTO 0 [facility] Basophils/100 WBC (Bld) 0.3 % 0.2 - 2.0 % [facility] Eosinophils/100 WBC (Bld) 1.2 % 0.9 - 7.0 % [facility] Erythrocyte distribution width (RBC) [Ratio] 12.9 % 11.0 - 15.0 % [facility] Hematocrit (Bld) [Volume fraction] 40.3 % 36.0 - 48.0 % [facility] Hemoglobin (Bld) [Mass/Vol] 13.7 g/dL 12.0 - 16.0 g/dL [facility] IMMATURE GRANULOCYTES ABS AUTO 0.06 High [facility] Immature granulocytes/100 WBC (Bld) 0.5 % 0.0 - 0.5 % [facility] Interpretation and review of laboratory results Abnormal [facility] LYMPHOCYTES ABSOLUTE AUTO 2.5 [facility] Lymphocytes/100 WBC (Bld) 21.2 % 20.5 - 60.0 % [facility] MCH (RBC) [Entitic mass] 29 pg 26.7 - 34.0 pg [facility] MCHC (RBC) [Mass/Vol] 34 g/dL 29.9 - 35.2 g/dL [facility] MCV (RBC) [Entitic vol] 85.2 fL 81.0 - 99.0 fL [facility] MONOCYTES ABSOLUTE AUTO 0.4 [facility] Monocytes/100 WBC (Bld) 3.3 % 1.7 - 12.0 % [facility] NEUTROPHILS ABSOLUTE AUTO 8.7 High [facility] Neutrophils/100 WBC (Bld) 73.5 % 43.0 - 75.0 % [facility] Platelet mean volume (Bld) [Entitic vol] 9.5 fL 9.5 - 13.5 fL [facility] TBH EO # 0.1 [facility] TB PLT 378 [facility] RBC 4.73 [facility] WBC 11.8 High [facility] Outside Recordson 06-11-2024 Outside Records [id number]#[id number] [facility] Coding Summaryon 06-08-2024 Coding Summary HTMLBase 64 JnfzctrtZDe5cBr+PGhlYWQ +UC9ZFAFvV07clRLhzM7bG8 NMTElOSywgQVBQTElOSyIgb jAhKM9luBMmPGRt IC8+YB3rDQPiPwgjfEDtz0Z 8sCO8G18skq2qYVdhoGU7JV VjCgMkpfims5yzuUh3FXimA mluOyBt YKBrlB04FGM1iR41Xb89bWS ozHKxj8jjzLm3FsMgCWTjDR W8eLjjZDxts0CuANCgU49zo QBiy3U8 ICIkzDqecHVjApTxyAV0jG7 vCJlytylod0gqbxwlWgm3yv 33pCFcq4A7aDU3L0HgpyQ9E GJvbGQg EsvdwYYTnG8jhxzaw2bmtqg kHuZvFSEeRFb4BLh1ODEynI zvSnDxAJ51JJX6YWMxszDtC 2FsLWFs tHksVoS9r4F5Ub4RS1XLNqx yP0HFIOLFPLmpwYG+PC90cj 13U8ViVfikDya8PLBqUDW9q IX9rK1x IQTcJFhix2Z7mYF2P3OhjsC qfh9yx6udRTAdZZluI35smP Uxq0B8TIYfeFV7BQOmwMvaF iBzaG93 Oyc+TKOlpOrpm1XeZgfty5p ov4xenBl9FfdpDCDxcbHbsF rmDXG2v9ClKc9mBEXhbVS8o AM1uV1n KsSqKoO9ZBmoS814HcYxxQU vZdtmV66wE8TcaIU+PHRyPj l3UZHnjPfzTG2vQ8QkLZPnh mctbGVm cTjrVE3gFMShzrreUWLaaV1 xWEZeQ9h6RyTzBwO9HOooE5 LuOUXzftqcKp09lK7zMwDmV xL6NSyc B2SiotO8EHBpoSHqZSvnQOO 3V76kl1D0ZGMjGWGrXFM4rG I6pN7ayLxpecqchNJctPaju mVydGlj ZOqwLRqoO008FTZflXhlEuZ vZGluZyBEYXRlOiAgMTAvMD QvMjAyNDwvdGQ+PIGsLEA8b WxlPSAn dOKeEWnpPe3ghUelwMujEZ0 qAITkuyaoMMYsxX7xZGFzzA ErzFseLA4aTFGgbivyn435B iAxMHB0 HMIxiLJoD8JhbD7ySqUjIKH xPSVbU9DrdESqYFfgR498SN lnMkV8IXJszpAaS3FxXVVzt WduOiB0 b3B6Nk0Wz7RjjyfsH7JvuWV mIqZlPrqiDDi7Q0SnZwohfV I+DO69WMYfKQ07UYu7LQN5v WxlPSdi AUXpG2ZtvV7pSmEgSUJyOHZ kOyc+PHRhYmxlIHdpZHRoPS vnVTRtYgCtmRuqGU5mKw4jN GVyLWNv yIfbtHQvCsNyh5mkWMVsSQx oYL8wlCqoC8KqoBH5FZGvc9 b3Os62Y29iR0PdyPR+PGNvb QG1mMZ1 iL5cDzPiFzQ5AKdaX538GjI ueFVvYenlq7ttj9benHu7Da N0XWDqzyAmlPhsCDR4v3JaT z92W58n IHdpZHRoPSIxNSUiIHZhbGl rie8agW2qAs2+WTRrfJI8qB T4pT4tFvPtFvY9DUvcK850Y nRvcCIv Uayyf7mom8ugiBp2IlTpZTD kmsZekUqsPBS3p8MoTe37F7 HloVpoi2VhZuz8gl47wKZmu 9N0sIL9 S6AiRXEwzlnztTVfgUasXA6 aKHExlcaeZSCzaD9hMNWvU4 w3UpWjKqU7EXnmB0SeegA5T GJvbGQg FUPbiHHFuI1rrlspi3phaou mAhVcSDNkEHc5UTx7IUWiqB lfNjLmOUA7BhQ9PAO5oHRns H7asZxn voozmL5uOzn+BRD6uGTxhKP FUF5lDffecXU+IINzOEU1wT zeDQooTHNspC0qPYTdG3a5P iAwLjA1 HHgmG8WfukJ1VHDzxLZbSEO clDYScY2hxkzcv5xqnjllGg KpBIFnSDb9KGf8QALeqHmfY iBsZWZ0 HsQ2YDR9bVJhcX0ncUwmvve pgX2gBye+EwcipZsyLJG4VW y0D9ViZvh3PYDleYpgPE2yj GFkZGlu Kk5zdQdqmAynUD3uXVAxkcx un221CrNox3zvQJOczBKyGF zzTEE9S33os4P6SHRpXMZmR NQ1vJH0 lB5eqAdxfxsbkWBxbFtqxmW hkIpyNZlqIXscY140GQWhwZ tuCyPjCPe6Z6AdFci5NNWmu NrxJN2p cRRhZBgwSk3qyXfipMttVS7 oQFElqjpah616PxWtb1xgPU FlpOVzIGvbCTH8E01he6R7O CMwMDAw QYO7eGK8uZ6uoJnrdccdzLP mdDsgdmVydGljYWwtYWxpZ2 68MWUdyPiqZiUswQj7D5VuV nz9XZVh sTukKT5euAXuMFrnCz4obOo zqHxaDX4bNKPzxvsxl737Pi Hbl6iyJDAbkZRzARmcPST3P 02ru3C5 QHEvPDZqVNK0bFB7lQ0caJt nbjogbGVmdDsgdmVydGljYW gmVRydZ543NZGkwOlcDoYor GllbnQg JRriPTc8I8ReQamrwEY+PC9 1ZNToLE09dJAfeIMaj1macT y7QzKbBHCsVHW6rJhaJJujv 3JkZXIt J77lmJBop9M6VDIutMzqnVI vXxKepEI8gP4gGNqynhlmq0 axbwsfQrjjz2unro91rM96W 29sIHdp ZHRoPSIzMCUiIHZhbGlnbj0 jgP1bUd6+PGEicTX4aSU5pW 0uDQDyGfF7YQssI992CkSsr CIvPjxj g8zcn9cuhBd2UuW1OGUfeaI geJxmEIT2x2QoXd89B34bIE dpZHRoPSIyMCUiIHZhbGlnb t9djQ9v Ii8+YVSigIX8fKB0pT1aBsF nNdK6XMzrW280FsTqkEFdZu elV48uZ0YqcRA+OYCbKlr3Z CBzdHls ZS9fxOQmVGieMr6iAFN5OoH nZqTtHDqxA0YjYDHvhtnknq zanTH5VJFpAOTvlP88Wr3ny DogMTBw tCHScT8wbvweu2ucvstzZgV hOEDlGEt8BUs5OJMypPjgFg PpURA1FqL6BPB7rAXgrC3qi Glnbjog nO8jS6McGACaohzfQi83hW7 oLiNxGgD9IWhmMfy+Q1JBV0 ZPUkQsIEJSRUFOTkUgTUlDS EVMTEU8 W3PaVsz1RHYkxMlbNS7stZN wUEauCo8dzYbexAwwZB1eCH AqvhfyKUIpfA6aSNEvxCRwy NjiYM9q YBUygybpr173ZiNqDNK3MXM bbVKoQ2HeoK9uKwYwAPShZQ IsT9LkxKOnDNoxH099MZxyJ eS7HXSe cfOoC6RaBUCtdQarSxU1h4O 5Aq4wMk8fDP9oRIk2YG05WN 95jPFcm2M2gTL5L9TlPJAfa mctcmln cHZ7XLYcIOWujE52hUKzQFy uRz7kx0A7m657NRGkEVCtoO 67Gn5arQvpSLVlfFJMiK1wu vtgo8ut yylkZzDjZVMnBYc2PIc1EJW ufNavNdSrLVY2PbB7EPB9gZ OxdK1xuBgbuwqvsQ2mEmo+M jYgWWVh xtT8Y2YzImy4OQCppJhdSG1 xyOFyUTvzTo2nrAvalCecRZ 2vYQWloqlbZVIvfM2kYIEwg HRvbTog LE2yTIBnretzw273ZdSuCVV 9PVPyqUYhP5CaoC5oVlLfBI DuYFWdO7EtoTKpJWlrF952K GxlZnQ7 TKZmkzUiO9QwSIQqiIcjFeM 2p5N4Af6ZQX0WAZT7J7DaUk o0DSDapZviLZ9xkCDuAJzrW f5slMsz yHjkZK3hOAEtplszLXJytV1 fABFroOBewRphKY4nHINhdg yzh453FsBmQNV6TUJnbNAoL 8UfoG2b SkFhNCWhIEYeX8YvqNNkPXm kB403BSncXhA8DGKymuHmC2 EwCOKrgOwqVbC6z1N5Ip4Xo ODqA3Kk P9z6K3JkUqrhoFE+AM15CYI qLR56pDNpkPBck9zsjWq8Yj VnNXSuBDE5jBavQEvrp2MgW JNaO39o cOYbl7N0RIApqVcvfWOwRdW zzKK1zA7rVYvtehmye1xntc azKezxr9ujiw72gF01Q51gK HdpZHRo GNXdNSJeZBVvgPgjfp5tlW4 wIi8+GIPzoIM4pHV0yZ4kEi JmCaX0SUnxZ006XnPhoGDgV qonz4op h2ymjUp4WuAjZXFhafExgKj uCDM6j8DkEl45H57tVQlsZN FbGFZgLFSdKJCuxQwtsj3mi G9wIi8+ AA1zu9pygu95tR68mYH+PHR iVRA9mIvuLXqlBFOcxO3zKJ rnYbQ4UEKkMgDmrN16iOPyO IlyAq0u qWmhaToiTK0fTISuaimyr69 4CnAiw1uuGYGvtWRyWRrxUO G2W72xs3M1DFSpYJHoFRG2q WI2pJ4y bGlnbjogbGVmdDsgdmVydGl hDQkbSZsmR141WYBlrQseIe MwnVNsG7pyunYYNY2cFlcfw GQ+PHRk GVL0wYzwJDkyEIFebN7cWWA zE6m8XyXhObH0KRyqX7Ivdh J4LQHjcGDdQKGajEEWuI4lv xjyz1cq jukgKyMdFBVnWLn5AAz8XTN fyRmsFyDpZMC8HkK7BWK9hP IhlV4nrRpxgiimxK5fPir+R klOOjwv dGQ+BGRgLQR3fXraMMwqDLE ppQ3nUXVmJ8f0UuTtShG3TU jpV1LlkpD7OVYheHKoXORhl QPImL3p mkmmj7adivxoBhUxWDMtJUj 2OUu7EZGbpDnwJzBxIAC5In H5JCN3dFVhmI0qoCwgcrodl G9wOyc+ TVJOOjwvdGQ+OHVeEOJ5xNn iVNxfKCBxvE5mVMAnA8p6Pn LrEnA0LFmzF0OocxX0GYRqs GQgMTBw oTBArT8hlmsrn9tdwhwzTaH tKEPdWVa1PVm0PDCilDoxOi EwBEN9MpL1LIS7zWUlzO4hn Glnbjog hR5oQsd+TIB4ZFK5GV22BO0 7D2UiEdkzvGAvyDY+PHRhYm xlIHdpZHRoPScxMDAlJyBzd ZxfIY9k Ym9 (more content not included)... Normal [facility] HCG ( test) Ql (U)o n 06-07-2024 Interpretation and review of laboratory results Abnormal [facility] Preg Test, Ur Positive [facility] Urinalysis macro (dipstick) panel (U)on 06-07-2024 Bilirubin, UA Negative Negative - 4(70) +++ mg/dL [facility] Blood, UA Negative Negative - 50 Osvaldo/mcL [facility] Clarity, UA Clear [facility] Color, UA Yellow [facility] Glucose, UA Negative Negative - 1999(110) ++++ mg/dL [facility] Interpretation and review of laboratory results Abnormal [facility] Ketones, UA Negative Negative - 160(16) ++++ mg/dL [facility] Leukocytes, UA Trace Negative - 500+++ Edison/mcL [facility] Nitrite, UA Negative Negative - Positive [facility] pH, UA 7.5 5 - 9 [facility] Protein, UA Negative Negative - 1999(20) ++++ mg/dL [facility] Spec Grav, UA 1.020 1 - 1.03 [facility] Urobilinogen, UA 0.2 0.2 - 12 mg/dL [facility] Coding Summaryon 06-05-2024 Coding Summary HTMLBase 64 ZkuclhjlHTw5hHa+PGhlYWQ +QB4KTWIaX32noHXhbM7bG5 NMTElOSywgQVBQTElOSyIgb mYnWD9fuZLmMDTg IC8+JK0pXTRxSrdffVAql8E 8bVT6I07jdx1iEQphwEH1CB GxNoTzlyoku6aazBk6LTnkD mluOyBt MYDaxW06RRO1oQ27Qo10pNW mjAIzd3lshCu2ZrZvXARlCZ A0bYiwTLmpi0HhSCKbJ05gm FHti6D5 CYZxvVywlEZpCvFrpBT6kR3 dYLhvozexg5bxfocrWcx5pq 90xKWbe0S9dBA8R0LvaeF1S GJvbGQg InfquMEIcB1mbfsmy9ziulg uWnTdOFVbUVz2KSp9EDGcsN ewTeLhUJ94CGO4BWZaamRmR 2FsLWFs bXeaJkS3e7Y5Ou1JM5QCMak zU0SLKNMMDPoviGA+PC90cj 85S7NkCtctBaa5POJjPRJ7d NF6rR6w SVMfSXsxm2O2fXM6V2UrlbP jha6tq4rvDZMbFZibP18kdU Eyp6L0WCAnsLG2ICDvaJrnP iBzaG93 Oyc+YRUeqSurx4WjYygvh0p pp3mkfTh5EjcyTWTxljKriF jlTGK7j9GnEf2vXAUgbEF3r FY9vJ2y NyXvOmO3AXegM903MfPpnIJ wMwldK84eE5QfyQQ+PHRyPj q7TZPwvYclGW1lX7TyTOIyb mctbGVm rWqjBP2fBNMsgfjvWBHklQ8 yOUAyH3g1EwJpYiL4SRpsF5 JrQAPauqueRx67gJ4yLiDwB lK7LKeq M0DxbcZ9DSEoeEUuNHzkRMT 9U83xm9G4JUBhUNKoTBD6zR J5zL1mtJgkzzknpGLbeWurs mVydGlj GKmgXBusQ614KXBknPnnMnB vZGluZyBEYXRlOiAgMTAvMD EvMjAyNDwvdGQ+SMNcZXH7v WxlPSAn lJNyAXduRk4veOyaqCyjIQ2 cIDOzahcnMLJoeC0yGKNstI XnbYteGW1gBMNsijlso002I iAxMHB0 DRMahVWlX6BvdD4mXzHpTVD tHITlA8OlzOVgAYrmN895KN oaFtL7GFVwjyDkQ2QaCGYog WduOiB0 f7R0Bc3Fb8QtpsukD4VqrJH bEaCdHibvIOs5I9CbFjidzA I+AX09SFIyLR10WFw0PKH2s WxlPSdi BDSzS6ZvhK6kHbBvAZYxCCY kOyc+PHRhYmxlIHdpZHRoPS awOSAlWdDonWdmVW8yDd5vJ GVyLWNv kWrgnXYjYwJkx8rxWXCeWOv kKC7djJchG2EnfXL0PIHex5 t7Yn13D10iP4WfkLO+PGNvb RM8dVV0 aR4lVjBkRpZ2AGtkR675HgY hjHFhGsorv9epl7ufcBc8Er C9FDEumfFkfZetDZN7l4JfO h73K26z IHdpZHRoPSIxNSUiIHZhbGl oto4dwF2zUn3+YQZzoIC5aN G3gA2sUgQoGnY2RIhdC474Y nRvcCIv Mkwoa7yqj2vojXa5BoQiHMX yzwFuhUefERJ4t9LiXj94O0 QzvViwp8FeIsx8fz93hPQzw 4C8yUU1 H1JjYMRuciaqlPEriEigIG9 vMIEvwhwcBKZmzF9pRJSyJ5 w1CkBkBnG9CFejT4JgxyH2D GJvbGQg CCRimEQGyQ2jxwdfs3pcisg mPuVsLFGyCJs2GXp8KPQqrF nyAgWcKVK0VjJ6OJT6sGUhn O9sbRbe edehdE9wHji+TRG4aQPawPD OTK7lPaxggGO+OZXvKDZ6mT wbKCjpXRTyvW2dXJGcX2h2Z iAwLjA1 SZyfV4BpkxB0UWObtKBcKVX dcBWGdH0qfkkfz2aqiqkyZo BfGHVsNSk9QNr2MNFohWltB iBsZWZ0 RvQ8FGX3qHFgxB6jyPbekft ivY4hFme+YfcdqMgbAAA7DZ x0O7GpEas6WJVudLlsZE2oa GFkZGlu Ga4aqLgxyEhhUV8lWBMouzk hw000YmCtg5fmIIZpcTZiIM vyIKM2E86wi7N5KNRaKXEoQ QA5dXG0 aG3jjPygvxxdlPBsiBsehyW kkDupRWykTDlfP123DVHifR trCxBbQMa8K7IsNoo4ETOzp JnaYE8i fUZmXYbzEa7aaSlvtBlaVI1 gZJTlyydsu896PnFvs7reSH VpqTBxBRfuSWA1Q90fr1Z5J CMwMDAw SRS6gBP7hI1gcFsykkrhgUM mdDsgdmVydGljYWwtYWxpZ2 55XTAfnWwtVaMxzAd9A8TfQ vz2IJDg aFzuWG9lhQPrXPjyLt1jkZk ydAyhRC2kIYMfrmgzn105Th Peh6xeVUHckQFxHTqcXVE6W 80tq5Q0 GVXkKPHoEMR1qNF1oW9jyVk nbjogbGVmdDsgdmVydGljYW hiGBmbG621WYGgoEagUkWwc GllbnQg MJeyFWb4S3GeUfsikSI+PC9 6XVCpKN34tVLqfSVaq1vgdC h4YuPaQIAcUWV1nRbiWIxtz 3JkZXIt K35tgUXhf8Y2MCZqkYkimJM fEzXnjXD4nF8yJXvnrdzpb5 rcqxtcWuzfc8vtev65dV06V 29sIHdp ZHRoPSIzMCUiIHZhbGlnbj0 clG9qKh1+RKCdlCQ9sMU4zS 2iOYLqPyJ6IBgeP394VeNrv CIvPjxj l8gco9crpRi9SmO9CZJdlvC eoBgmHFK0v9BuBu09O52xLY dpZHRoPSIyMCUiIHZhbGlnb j4kfE9g Ii8+EQXopIT2xPA9rB0nEuP wCqZ4TJboL970JyWlsWTnUf mqN51rO7HlxUC+BJBxTsy7Z CBzdHls DZ1shUDmYJdmRn3wQIU0HdZ mOlTqCCzuT1WeVCMbitkcpk hkvNM1AQPaBZEoxQ62Rn0pd DogMTBw pNMMoX9kxsoyv2njmsbqNsE fMIGwYRp4MBe6HJPqdYgrEj IsAHA5OzW8ULD9pQPbrS4kk Glnbjog hB3yV9LvNAJnpaoaKt88sH8 kFfMdJaJ3SZcuRvx+Q1JBV0 ZPUkQsIEJSRUFOTkUgTUlDS EVMTEU8 O4TzBjf3PKWaxDnuUO5gmKO iBWdxNe5xiUbinOksOO4vSR QvdyfeJHTbdU4cCGAoiQBdt LfsNA6p TNItffuqu266GfRoRHU1SYK jqOLhV7OapQ1aTgVqTMRwIE GnH3GdcEIiGLdtJ712ZVmvK tM1TBTw liZeU4LxYCIlvVyaYlN7u7J 9Xw5eAt5tIW4aLGr6GO61HX 54tFSsk2S9eFN4L0MbAFZed mctcmln fAY5AEEyDGCoyD32mBItUVp oPn8sl8C6x643TPKbGQKarB 33An4ktYexOMWebISEpL7iu pnqv2yo isdpYxHbVPCxLZk9OHi8CWK khDecGrIzUAD8EvN3QZH8iF XfxR0ufAubgugdeE8yKbb+M jYgWWVh ruK1Y7TsXpv7THRarPtrNX5 yxYImDShxTw9pqHnxlDozUX 1rJYZwjxrdRVCqqP9uUMUtm HRvbTog YW5nPTWdmgtil547LeHwPHZ 2LIGwlLTtX7FpjU0wAuEoVH GeTJTsC0QelIIgAVwaN311F GxlZnQ7 WLSxrtUtA8YrEGZmsWbdLgQ 0n8M6Qg4OCL3GKBB4N2AhAb n1KEDmdTwcLK1rnXAdPRlmM z6vvJbe aQxgQX1gTHThukmuIEZfuD7 cDECpuCRlbOwxZO5kSJAgge bvg558CuFeIVN7KQWeeFBrI 8HmdS5i JuStVUOxVJPjQ2ZkgPReSLu nL478IRbcCeY2ULRabqUeD0 RrPJRswWfnCcN8t2G8Mr8YY DwvdGQ+ WX34du05R9LkYvplWcx6DWM qSWA7wIM0xT7nFDCcGNstn0 O7rKS8Q8SrwmShwp2eg6uvB XBzZTog M75yxEUrc8V4MBIgcMD7AAY lhAwqBjYhcN40Whm+PGNvbG iiy0PgMbrqg4oim2tmnMz5T jMwJSIg urYmxAuuDCT4t5FjZh69X82 sIHdpZHRoPSIzMCUiIHZhbG cmsv6mrI2iUc3+UECylSR7a NS7vI9o XrQfOkN8AXfnI846TxVuqGN aZpsce8ysw3raqMn4ZqCyKM VrxlBumYyqFPM2k4UzCz52C 2NvbGdy j1CwAob6vp11bGVoe3Z0rCT 2R1RoIZUingeavFDzmPuuWP 8nNPDohcttKRDkzC9vFMUiU 6y4JzBm GbL9ISsmG5BpsvI1YENppMT zPYXzrUAXcO9fbadbd4ctoh neYtIyBOIeVGy4WRz8VRRqp WduOiBs JZV7JpO0CNK7qCXcuP0wyBd irzqmjG3pPem+VMb9x8cmxA CiBT9qqJT4SJ79UK66kWNxe 8Y5xZP3 O9PyUCExlcyjnxuieHX4AUD fYSEeuQ68Ib1zxHrgOd1kCF GmKEU3YDHhgIJpL4HbkY4nW iAjMDAw FWTmC7ViyTPtGPcoP280LNn dBeS1WRHkprXoZ9GcERLrcK xpBiT5o5V1Qx1DIK18FX82T O62cLSn k3T4xTU4V8WrGLBsigercym izYT2YHWyNXIviY56Ix4imV yeBm2dTKGrEPO8OURojKBqD 1XhfK8i UjZoRLVpNUKsG7MljCVxXSq lQ028MDfuVlB8DKGaiiSuE5 ShAKYchYajXkO3e9B5Fd6NJ y87WD62 TB99cCBfy6K0yIK3X4NoTQJ zybtpngaehHH9CKYwFXDjpT 38Ym5epSwxMn7jBTRkEPV7T FRpbWVz I1ZysP1mNgYbDHQtTIJeH8O eeBPmHJagD998DWxiNfG7UG IwhdUxS3RdXROjdAavHkP0q 4E0Au3A JCmmuis3W2MdCinolQU+PC9 5BROcWD35yMDqpYHun8nxvH t0VyBaFFTvDGQ9dZmdCYmvf 3JkZXIt Y29 (more content not included)... Normal [facility] Office/Clinic Noteon 024 Office/Clinic Note Patient: [...] 113.040 kg Body Mass Index 39.11 kg/m2 [place] Body Weight Calculated 61.437 kg BSA Measured 2.31 m2 General: Alert and oriented, No acute distress. Musculoskeletal: Positive point tenderness over the left gluteal region as compared to the right. Positive straight leg raise. Positive piriformis muscle sign with external rotation of the hip with adduction towards the opposite shoulder.. Impression and Plan Diagnosis Sciatica of left side ([id number] M54.32). Plan: Discussed with patient stretches she can do to help with her sciatica. They were demonstrated in the office. Will hold off on any steroids.. Orders Orders Evaluation and Management: [id number] Office visit - established pt, Level 3 (Order): 06/01/2024 13:28 EDT, Qty: 1, Sciatica of left side. [Electronically Signed on: 06/01/2024 13:56 EDT] Jason MD, Kulwant [Verified on: 06/01/2024 13:56 EDT] Radha Gomez MD Normal [facility] .Auto Diff 1on 05-28-2024 Auto [place] % 5 % Normal 1-12 [facility] Comment on above: Performed By: #### 1 [id number], 9276090, 1714461, [id number] ####[facility] (DEFAULT)[address] [place] [address] Baso Abs# 0.1 x10 Normal 0.0-0.2 [facility] Comment on above: Performed By: #### 1 [id number], 3611585, 1150608, [id number] ####[facility] (DEFAULT)[address] [place] [address] Basophils/100 WBC (Bld) 0.6 % Normal 0.2-2.0 [facility] Comment on above: Performed By: #### 1 [id number], 0177382, 2883244, [id number] ####[facility] (DEFAULT)[address] [place] [address] Eos Abs# 0.3 x10 Normal 0.0-0.4 [facility] Comment on above: Performed By: #### 1 [id number], 5838164, 5736485, [id number] ####[facility] (DEFAULT)[address] [place] [address] Eosinophils/100 WBC (Bld) 2.5 % Normal 0.9-4.0 [facility] Comment on above: Performed By: #### 1 0689648, 4343154, 9117639, [id number] ####[facility] (DEFAULT)[address] [place] [address] Lymph Abs# 3.6 x10 High 1.3-2.9 [facility] Comment on above: Performed By: #### 1 0981275, 2508658, 9463247, [id number] ####[facility] (DEFAULT)[address] [place] [address] Lymphocytes/100 WBC (Bld) 27 % Normal 14-48 [facility] Comment on above: Performed By: #### 1 1582878, 8544324, 6731774, [id number] ####[facility] (DEFAULT)[address] [place] [address] [place] Abs# 0.7 x10 Normal 0.0-0.8 [facility] Comment on above: Performed By: #### 1 4966230, 2806592, 2399053, [id number] ####[facility] (DEFAULT)[address] [place] [address] Neut Abs# 8.4 x10 Normal 1.5-9.2 [facility] Comment on above: Performed By: #### 1 7517693, 6091657, 5461207, [id number] ####[facility] (DEFAULT)[address] [place] [address] Neutrophils/100 WBC (Bld) 64 % Normal 44-88 [facility] Comment on above: Performed By: #### 1 4254862, 1242837, 3226513, [id number] ####[facility] (DEFAULT)[address] [place] [address] CBC w/ Auto Diffon 4 Man Diff? Auto Invalid Interpretation Code [facility] Comment on above: Performed By: #### 1 [id number], 3605262, 8676331, [id number] #### [facility] (DEFAULT) [address] [place] [address] Erythrocyte distribution width (RBC) [Ratio] 13.6 % Normal 11.5-15.0 [facility] Comment on above: Performed By: #### 1 7773508, 7462807, 0272711, [id number] #### [facility] (DEFAULT) [address] [place] [address] Hematocrit (Bld) [Volume fraction] 42.0 % High 33.7-40.4 [facility] Comment on above: Performed By: #### 1 1552832, 9645674, 8478409, [id number] #### [facility] (DEFAULT) [address] [place] [address]27 Hemoglobin (Bld) [Mass/Vol] 13.8 g/dL Normal 11.3-15.9 [facility] Comment on above: Performed By: #### 1 0666602, 4593150, 1785969, [id number] #### [facility] (DEFAULT) [address] [place] [address] 10660 MCH (RBC) [Entitic mass] 28 pg Normal 24-34 [facility] Comment on above: Performed By: #### 1 8291551, 5064659, 9706623, [id number] #### [facility] (DEFAULT) [address] [place] [address] 41527 MCHC (RBC) [Mass/Vol] 33 g/dL Normal 26-37 [facility] Comment on above: Performed By: #### 1 2871771, 1683633, 1953331, [id number] #### [facility] (DEFAULT) [address] [place] [address] 17080 MCV (RBC) [Entitic vol] 86 fL Normal 81-100 [facility] Comment on above: Performed By: #### 1 1128432, 4360343, 4994703, [id number] #### [facility] (DEFAULT) [address] [place] [address] 11321 Platelet 352 x10 Normal 138-427 [facility] Comment on above: Performed By: #### 1 1500265, 0504230, 2398495, [id number] #### [facility] (DEFAULT) [address] [place] [address] 25462 Platelet mean volume (Bld) [Entitic vol] 7.8 fL Normal 6.3-10.2 [facility] Comment on above: Performed By: #### 1 1689906, 8397087, 1029337, [id number] #### [facility] (DEFAULT) [address] [place] [address] 58933 RBC 4.90 x10 Normal 3.70-5.30 [facility] Comment on above: Performed By: #### 1 5222829, 4089742, 9716367, [id number] #### [facility] (DEFAULT) [address] [place] [address] WBC 13.1 x10 High 3.5-10.5 [facility] Comment on above: Performed By: #### 1 9505709, 1790567, 6407571, [id number] #### [facility] (DEFAULT) [address] [place] [address] CMP Standardon 05-28-2024 eGFR Non AA >60 Invalid Interpretation Code [facility] Comment on above: Performed By: #### 1 8455140, 2309053, 4786629, [id number] ####[facility] (DEFAULT)[address] [place] [address] eGFR AA >60 Invalid Interpretation Code [facility] Comment on above: Performed By: #### 1 1013879, 3195336, 5819334, [id number] ####[facility] (DEFAULT)[address] [place] [address] Albumin [Mass/Vol] 4.4 g/dL Normal 3.5-5.0 [facility] Comment on above: Performed By: #### 1 7606488, 6704189, 0183064, [id number] ####[facility] (DEFAULT)[address] [place] [address] Albumin/Globulin [Mass ratio] 1.2 {ratio} Low 1.4-2.6 [facility] Comment on above: Performed By: #### 1 3518324, 6595369, 3039161, [id number] ####[facility] (DEFAULT)[address] [place] [address] 78692 Alk Phos 46 IU/L Normal 32-91 [facility] Comment on above: Performed By: #### 1 0551944, 2534718, 0198874, [id number] ####[facility] (DEFAULT)[address] [place] [address] 66975 ALT [Catalytic activity/Vol] 29.0 U/L Normal 14.0-54.0 [facility] Comment on above: Performed By: #### 1 0161426, 3535137, 6667631, [id number] ####[facility] (DEFAULT)[address] [place] [address] 03589 Anion gap [Moles/Vol] 11.4 mmol/L Normal 5.0-19.0 [facility] Comment on above: Performed By: #### 1 5964566, 9971979, 5990912, [id number] ####[facility] (DEFAULT)[address] [place] [address] 13170 AST [Catalytic activity/Vol] 30 U/L Normal 15-41 [facility] Comment on above: Performed By: #### 1 9948546, 9818466, 6537359, [id number] ####[facility] (DEFAULT)[address] [place] [address] 10369 Bili Total 0.4 mg/dL Normal 0.3-1.2 [facility] Comment on above: Performed By: #### 1 1572234, 4928218, 5397373, [id number] ####[facility] (DEFAULT)[address] [place] [address] 74730 Calcium [Mass/Vol] 8.9 mg/dL Normal 8.9-10.3 [facility] Comment on above: Performed By: #### 1 0311326, 1514007, 8788272, [id number] ####[facility] (DEFAULT)[address] [place] [address] 97237 Chloride [Moles/Vol] 104 mmol/L Normal 101-111 [facility] Comment on above: Performed By: #### 1 4404960, 6137544, 2852304, [id number] ####[facility] (DEFAULT)[address] [place] [address] 03914 CO2 [Moles/Vol] 20 mmol/L Low 21-32 [facility] Comment on above: Performed By: #### 1 1639684, 3383769, 3846731, [id number] ####[facility] (DEFAULT)[address] [place] [address] 35835 Creatinine [Mass/Vol] 0.66 mg/dL Normal 0.60-1.30 [facility] Comment on above: Performed By: #### 1 9254149, 7943892, 5057641, [id number] ####[facility] (DEFAULT)[address] [place] [address] 99351 Globulin (S) [Mass/Vol] 3.5 g/dL Normal 1.5-4.3 [facility] Comment on above: Performed By: #### 1 4236615, 4810213, 8182050, [id number] ####[facility] (DEFAULT)[address] [place] [address] 83991 Glucose [Mass/Vol] 100.0 mg/dL Normal 74.0-118.0 [facility] Comment on above: Performed By: #### 1 4192846, 4701776, 8804988, [id number] ####[facility] (DEFAULT)[address] [place] [address] 19472 Osmolality 263 mOsm/L Invalid Interpretation Code [facility] Comment on above: Performed By: #### 1 5389154, 4916918, 3787144, [id number] ####[facility] (DEFAULT)[address] [place] [address] 23423 Potassium [Moles/Vol] 3.4 mmol/L Low 3.6-5.1 [facility] Comment on above: Performed By: #### 1 2244440, 1873016, 4856110, [id number] ####[facility] (DEFAULT)[address] [place] [address] 99561 Protein [Mass/Vol] 7.9 g/dL Normal 6.5-8.1 [facility] Comment on above: Performed By: #### 1 [id number], [id number], [id number], [id number] ####[facility] (DEFAULT)[address] [place] [address] Sodium [Moles/Vol] 132.0 mmol/L Low 136.0-144.0 [facility] Comment on above: Performed By: #### 1 [id number], [id number], [id number], [id number] ####[facility] (DEFAULT)[address] [place] [address] Urea nitrogen [Mass/Vol] 9 mg/dL Normal 8-26 [facility] Comment on above: Performed By: #### 1 [id number], [id number], [id number], [id number] ####[facility] (DEFAULT)[address] [place] [address] Urea nitrogen/Creatinine [Mass ratio] 13.6 mg/mg Normal 4.6-16.2 [facility] Comment on above: Performed By: #### 1 [id number], [id number], [id number], [id number] ####[facility] (DEFAULT)[address] [place] [address] ED Clinical Summaryon [address] [facility] Emergency Department [address] [place] [address] ED Clinical Summary PERSON INFORMATION Name: SHERLY ASTUDILLO Age: 24 Years Sex: FEMALE : 2000 MRN: Acct#: Visit Reason: Back pain; Abdominal pain - ; ABD PAIN LT SIDE, LT LEG NUMB Arrival: 05/28/2024 14:14:57 Discharge: 05/28/2024 17:55:00 LOS: 000 03:41 Check In: 05/28/2024 14:14:57 Checkout:05/28/2024 17:55:00 Address: [address] [place] [address] PCP: Radha Gomez MD PROVIDER INFORMATION Provider Role Assigned Unassigned Evonne Cheung PA-C ED PA 05/28/2024 14:19:07 Daisy Freire CONTINUOUS IMPROVEMENT COORDINATOR Nurse 05/28/2024 14:26:14 VITALS INFORMATION Vital Sign [...] Home PATIENT EDUCATION INFORMATION Instructions: Muscle Strain, Zqim-pp-Wtff; Sciatica, Exhm-et-Yntg; Back Exercises, Heuc-xk-Phmh Follow-Up: With: Address: When: Radha Gomez MD [address] [place] [address] Within 3 to 5 days DIAGNOSIS: 1:6 weeks gestation of ; 2:Low back pain with left-sided sciatica; 3:Pain in the side Patient Understands: Yes - Patient/family/caregive r verbalizes understanding of instructions given Comment: [facility] ED Clinical Summary [facility] ? Urgent Care [address] [place] [address] Clinical Summary PERSON INFORMATION Name: SHERLY ASTUDILLO Age: 24 Years Sex: FEMALE : 2000 MRN: Acct#: Visit Reason: UC - Abdominal Pain; LT SIDE PAIN, LEG PAIN Arrival: 05/28/2024 14:07:02 Discharge: 05/28/2024 14:10:00 LOS: 000 00:03 Check In: 05/28/2024 14:07:02 Checkout: 05/28/2024 14:10:00 Address: [address] [place], [place] [id number] PCP: Radha Gomez MD PROVIDER INFORMATION Provider [...] left flank pain; Currently Patient Understands: Comment: [facility] ED Note-Nursingon 05-28-2024 ED Note-Nursing Silk Screen Printer at bedside wh ile US was performed. pt tolerated well [facility] ED Note-Nursing Pt ambulatory back [...] is A/Ox4 call light within reach Normal [facility] ED Patient Summaryon 024 ED Patient Summary [facility] - Emergency Department [address] [place], [place] [id number] PATIENT DISCHARGE INSTRUCTIONS Patient Information Name: SHERLY ASTUDILLO Age: 24 Years Date of : 2000 Reason For Visit: Back pain; Abdominal pain - ; ABD PAIN LT SIDE, LT LEG NUMB Arrival Time: 05/28/2024 14:14:57 Primary Care Physician: Radha Gomez MD Attending Physician: Pam Gao MD Comment: Visit Diagnosis: Diagnoses This Visit 6 weeks gestation of (Z3A.01) Abdominal pain - ([id number]) Back pain ([id number]) Low back pain with left-sided sciatica (M54.42) Pain in the side (R10.9) The Pharmacy at [facility] is open Tuesday through Tuesday from [...] alcohol and/or drug addiction problems; contact the [facility] 28/03 Crisis Hotline -Text 4HZAE ce [phone]. If you received any narcotics, sedation, or [...] documents With: Address: When: Radha Gomez MD [address] [place] [address] Within 3 to 5 days Medication Information: The exam and treatment you received today in the [facility] Emergency Department were for an urgent problem and are not intended as complete care. It is important for you to follow up with a doctor, nurse practitioner, or physician?s hotel assistant manager for ongoing care. If your symptoms become [...] so we can reach you if necessary. [facility] Emergency Department has provided you with a complete list of medications post discharge. Please inform your river tester/provider of your visit and for further instruction [...] can happen (more content not included)... Normal [facility] ED Patient Summary [facility] ? Urgent Care [address] [place] [address] PATIENT DISCHARGE INSTRUCTIONS Patient Information Name: SHERLY ASTUDILLO Age: 24 Years Date of : 2000 Reason For Visit: UC - Abdominal Pain; LT SIDE PAIN, LEG PAIN Arrival Time: 05/28/2024 14:07:02 Primary Care Physician: Radha Gomez MD Attending Physician: Spenser Fang Comment: Patient Education Medication Information: The exam and treatment you received today in the [facility] Emergency Department were for an urgent problem and are not intended as complete care. It is important for you to follow up with a doctor, nurse practitioner, or physician?s hotel assistant manager for ongoing care. If your symptoms become [...] so we can reach you if necessary. [facility] Emergency Department has provided you with a complete list of medications post discharge. Please inform your river tester/provider of your visit and for further instruction [...] (R10.9) Currently (Z34.90) UC - Abdominal Pain ([id number]) If you received any narcotics, sedation, or [...] for Disease Control and Prevention May 2014 [facility] Lactic Acidon 05-28-2024 Lactic Acid 9.1 mg/dL Normal 4.5-19.8 [facility] Comment on above: Performed By: #### 2 [id number] #### [facility] (DEFAULT) [address] [place] [address] UA Gacec2zr 05-28-2024 UA Bacteria Trace [facility] Comment on above: Order Comment: Urina lysis Microscopic order added on by [employer]nekt Expert Rules system. Performed By: #### 5 [id number], [id number] #### [facility] (DEFAULT) [address] [place] [address] UA RBC None Seen [facility] Comment on above: Order Comment: Urina lysis Microscopic order added on by [employer] Expert Rules system. Performed By: #### 5 [id number], [id number] #### [facility] (DEFAULT) [address] [place] [address] UA Squam Epi Moderate [facility] Comment on above: Order Comment: Urina lysis Microscopic order added on by [employer] Expert Rules system. Performed By: #### 5 [id number], [id number] #### [facility] (DEFAULT) [address] [place] [address] UA WBC 0-2 [facility] Comment on above: Order Comment: Urina lysis Microscopic order added on by [employer] Expert Rules system. Performed By: #### 5 [id number], [id number] #### [facility] (DEFAULT) [address] [place] [address] UA w Culture if Ind Standard on 05-28-2024 Breakpoint UA [facility] Comment on above: Performed By: #### 5 [id number], [id number] #### [facility] (DEFAULT) [address] [place] [address] Color (U) Straw Normal [facility] Comment on above: Performed By: #### 5 [id number], [id number] #### [facility] (DEFAULT) [address] [place] [address] Culture? Not Indicated Invalid Interpretation Code [facility] Comment on above: Result Comment: Resu lt created by rule GL_MAGR_ADD_UA_CULT Result created by rule GL_MAGR_ADD_UA_CULT Performed By: #### 5 [id number], [id number] #### [facility] (DEFAULT) [address] [place] [address] Glucose (U) [Mass/Vol] Negative Normal [facility] Comment on above: Performed By: #### 5 [id number], [id number] #### [facility] (DEFAULT) [address] [place] [address] Ketones Ql (U) Negative Normal [facility] Comment on above: Performed By: #### 5 [id number], [id number] #### [facility] (DEFAULT) [address] [place] [address]69 Micro? Indicated Invalid Interpretation Code [facility] Comment on above: Result Comment: Resu lt created by rule GL_MAGR_ADD_UA_MICRO Performed By: #### 5 [id number], [id number] #### [facility] (DEFAULT) [address] [place] [address] UA Bilirubin Negative Normal [facility] Comment on above: Performed By: #### 5 [id number], [id number] #### [facility] (DEFAULT) [address] [place] [address]77 UA Blood Negative Normal [facility] Comment on above: Performed By: #### 5 [id number], [id number] #### [facility] (DEFAULT) [address] [place] [address] UA Clarity SL CLOUDY Abnormal CLEAR [facility] Comment on above: Performed By: #### 5 [id number], [id number] #### [facility] (DEFAULT) [address] [place] [address] UA Leuk Est SMALL Abnormal NEGATIVE [facility] Comment on above: Performed By: #### 5 [id number], [id number] #### [facility] (DEFAULT) [address] [place] [address] UA Nitrite Negative Normal NEGATIVE [facility] Comment on above: Performed By: #### 5 [id number], [id number] #### [facility] (DEFAULT) [address] [place] [address] UA pH 6.0 Normal 5-8 [facility] Comment on above: Performed By: #### 5 [id number], [id number] #### [facility] (DEFAULT) [address] [place] [address] UA Protein Negative Normal NEGATIVE [facility] Comment on above: Performed By: #### 5 [id number], [id number] #### [facility] (DEFAULT) [address] [place] [address] UA Spec Grav 1.010 Normal 1.001-1.035 [facility] Comment on above: Performed By: #### 5 [id number], [id number] #### [facility] (DEFAULT) [address] [place] [address] UA Urobilinogen 0.2 mg/dL Normal 0.2-1.0 [facility] Comment on above: Performed By: #### 5 [id number], [id number] #### [facility] (DEFAULT) [address] [place] [address] Urine Source Clean Catch Normal [facility] Comment on above: Performed By: #### 5 [id number], [id number] #### [facility] (DEFAULT) [address] [place] [address] US 1st Trimesteron 05-28-2024 US 1st Trimester [...] Radha Yeh MD 05/28/24 7:34 pm Technologist: [facility] US Transvaginalon 05-28-2024 US Transvaginal EXAM: [...] Radha Yeh MD 05/28/24 7:34 pm Technologist: [facility] Urgent Care Note- Provideron 05-28-2024 Urgent [...] History Medical history: Resolved Ankle fracture, left (93407929): Resolved. 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 Surgical history: Cholecystectomy (10252415).. Family history: Anxiety Father Sister Diabetes mellitus [...] Diagnosis Abdominal pain, acute, left upper quadrant (BPT73-HY R10.12, Discharge, Medical) Acute left flank pain (FRD69-IR R10.9, Discharge, Medical) Currently (JEH19-II Z34.90, Discharge, Medical) Plan Condition: Stable, Guarded. 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 Interface Message Text Attestation signed [...] OMFS PATIENT VISIT CHIEF COMPLAINT: Toothache and Bath Teeth HISTORY OF PRESENT ILLNESS: 24-year-old female [...] canal DIAGNOSIS: Abnormal tooth eruption (Primary Diagnosis) [003933] Impacted third molar tooth [[id number]] Caries, Impacted wisdom teeth, and Retained dental root ASSESSMENT: #1 Caries #16 Caries #17 and #32, Partial bony Impaction with pericoronitis PLAN: Surgical extractions #'s 17, 32, Extractions #'s 1, 16, and with local anesthesia Pavan Lee DMD, MD Normal [facility] 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 Authentication Interface Message Text Normal [facility] Coding Summaryon 03-28-2024 Coding Summary HTMLBase 64 TmooztliLDu4xCo+PGhlYWQ +FX9VJHDwR66vnIQqtO9tS8 NMTElOSywgQVBQTElOSyIgb mBgET0ntDCaCFTf IC8+EP1kTIKiCnbtvDLma1U 1lMC1E54wgx2rREtdaPZ6TG YhCfMjxqaqw5fivZp0ECmxV mluOyBt WZJgtQ82RUR8qX45Sw78gAR nrTNgs1osdNe3RdLwDPFrNP A4wHodTEsdr2IdYCPfX12ht CGvb7P5 OHCieAqikITvMePzrSB0mV4 xSNskkqviq8edxpamXmu4wj 73aFZtm2E0mWA6F5ItzsS4X GJvbGQg AporbTIAtZ4edtwia0tuzoz vCzArDKUnOJj3YCm3ROMqkP ebRfLsLI26LKR0NWQicuWrI 2FsLWFs zPraMmK8c2M5Tp2LO7FVNzm yR3UOXFMDHPovkDN+PC90cj 83M3EwMhkgHmq6OCXhGXR9e NV8sD7v TRCvTDsqn7A6nVM2B6QxtlB own8ez0djJRVfLRwcT10rgI Fgl4W9LAFitXH2NCUckJtbV iBzaG93 Oyc+KUJtwKfyj6NzKxynh1v es8tfxAy2CifvBFMcubQqaY kuKQH4p6QeFe7zHIBriCV4a EO7yS2m EnVaBxD5DZqgT413HuOiqTQ iHjsnM03eO0MevCT+PHRyPj w2QSHsxCbiOX0jC8YvWLVdu mctbGVm kYaiSS6gEACqnhbbEIMuzD0 jUBAeC0i1HmHdBdD9VOixJ2 QxIIRbeptuKd06pR3dByJyN sD4CSye B7FgdiE9DHVdlJIwLAyoHFZ 0K87ms4J9WWRrTQZyPYB8eZ B4bR8shXyzojupxTZdsKhvb mVydGlj REejDUjtN357EOIqlUarFaA vZGluZyBEYXRlOiAgMDcvMj QvMjAyNDwvdGQ+UXQsPAQ4j WxlPSAn qDTwLDauMg5riLtohAafAN7 wCPLfqjfbWRAabH5kYAPbgQ SbuJqiIP6rSDAxjrirt367T iAxMHB0 USCmkSYfY0KkqZ6fScPeIMD rMUGoB8BpaRQjEWqmZ930SZ blFtJ2KJLpbsWzI7KcHZRdm WduOiB0 l0O2Ss1Ck1YikitwX3RonIZ aIlKpAkouCNk6V9CrIztqsP I+IP91WJCrDA20FTh7WMY0i WxlPSdi UNGcV1UmtQ3zZgLlHQRlTNT kOyc+PHRhYmxlIHdpZHRoPS yhFSPiWfWhaJynMM9hDw9bR GVyLWNv qBvenQYcJoDdz7iePKFfCSd uXC2hvTlmI5KlyQW7TMOdn7 f4Xm46I80rY9PpzGM+PGNvb DV3xKW6 aP7eLfYxGlR6JPnaL627AsI fuDKhRkdnf9lko3hqpVt4Ck A9PUKdysYbtJcjTVY4r0JiZ p70Q89c IHdpZHRoPSIxNSUiIHZhbGl gcz9eqB6bId4+WVUmkIL5dN I3bZ2vKdGqXfY7TQqhX539H nRvcCIv Mailr8wxu3etrYt5SbEuKVY rbpScwOcpENW9c4SrGm37R0 BuhIicv8JfMmy1cv05sUAdv 2F9tKG2 F3KdLYFzwtfidFKbmOyoJS5 bLPJaaxmbMIUcsW9lEXMeW1 w5RlCqSdI8YUqxT7OtyqJ6H GJvbGQg ETPeqEWUtS3fuunpt2qgkbh hAsPuVVQyLSq4BOf4RDFajJ llCzTwQLH9KzR9ZYZ2lHNho X4xzWfn ophxcY8iAjk+ZRM0sBBtdGW RWF5pDtzvcME+YFDtNAA9pQ yaLJmuAOFllX4lXIWtU5c3V iAwLjA1 YBbwS5UfkaT5HOVkmPFvKJP inOCCaI5blurbk9hkviawMj IwMBZqOJi3EGc1JNInbXkeQ iBsZWZ0 DgC4ZME4cTXpwY8ylIyllht qpP3yOfp+ZcviyGdsGIW7RD w9C7TzMbn5MEIsrQkmYJ8oi GFkZGlu Zk3ssKysqGvlEC7uAOWbezh qn330YkPok7imXWYyoPRoCT mlPCL7P77xj5Z9MISqCFDjI YW5rOM0 oI1qbWiwhsffmMPigEklwsR xzAowFJudNQfuX949OLWcaP iqPpYiCHc0J7CxMir0FKYip ExmIF1i gAVrMTeyLd9lkJwwoMkbXJ9 xURPahbpty227EkWof6nuMK LjoJEqUZmnLIO9B52eg9O2P CMwMDAw SEC3mTL1hX7hsVhbrbcsyGU mdDsgdmVydGljYWwtYWxpZ2 52LILknZdzAtYuzEb4Q9PxB tp5BAXh gMsfGO5mrRAoXIdoUr8blPe dqDlfBR8wTQJqleafc605Yn Fuw3reBOMhxTAeKLvkYDG1R 70th1F0 EVRuQMQsOKJ1wLA7kH2vhUw nbjogbGVmdDsgdmVydGljYW utXEfxJ283GLVvvOukRiMel GllbnQg GQixDSc1K5PcXqayhNE+PC9 2TEPuNG32vXQkaXZkh4gjdZ u8IeTvQNHtOUL0qAstIGivh 3JkZXIt U59ixVVgo5Y3PGMdvKzotWT tWoNcgVG6cK3fRThvarpnu4 oyyrygUhepv8vnus28jI79E 29sIHdp ZHRoPSIzMCUiIHZhbGlnbj0 vjU6eGg8+FVSeeQB5aAR1dV 2mVZYmUaM2HVjwP232RyTqt CIvPjxj z1njl2rmrTu1CbL5XSRteyN onQlxBQX3y6EyWo23N28cTG dpZHRoPSIyMCUiIHZhbGlnb g2utH4o Ii8+XOWznFN1xVU8tX3tVqS tTgM6THcsZ921RiHalOVlOo gxB69fK7FsrUP+QDDhFhn4P CBzdHls KH0qmVUyTOuxVb2uCMN1FnP tXaOrLKaoW5ArFCYmvkwlmj olbBT2INWwWARtmU45Ow1bk DogMTBw aGWCvL4jhrnzc7mpxdgwGzL cIRDmUXt7HAt4IGEklVopHz DaNHS2JbM4DVD0yAJpkI0im Glnbjog rL4gJ9HbETCosbfkIi24oW9 kBpDsBnW8VRobWgc+Q1JBV0 ZPUkQsIEJSRUFOTkUgTUlDS EVMTEU8 Z4UdOgk9HUTdfWygSY2ciVB iJVsyZg3dgPormSzuOT5fBX QrqljnSQNfyU1bCBLekYEfn JcdNJ2i JSGrrmcrd210YjIoQMB6REA rjOQpF3QlzO8mPqGkVBDnLW MyT9QxzYIsFPtpJ065WDypN kS2FGTy zdPvT1IyWDNjvZcdQdC3f1F 1Qc3iLz7pXU0nKGd6RA75XU 10fDMgr8I8vMC6X7DjLZVlr mctcmln uEZ2IWLzEZSeaI20lQTkBDv uMs2sv5S4g704KLHxDHSjfR 23Fr8djIkhSQRsaXZScD4uy fjyv9xd rginMsTgAGCcORg0JNl8QZL hzNanPpIpJOD3IbG6TVO6fO DzzF8pkKugzwdunB8vJxd+M jYgWWVh vaV8D5AzLue5TYWypIczAO4 lbSSlULjrMi7hzHvrqGatNJ 4iZCLrldhaOPAnqJ7cRMMox HRvbTog KU1jOWRmghcer029IdZlRTP 2MRMroAItV7OoxB1oLzYcBI PaDGXiP7PofIOcXNmrO471Y GxlZnQ7 VQWggwEcW0XlPWYwuZloTdI 5f3F3Xg0DSU8RALI0Q8BhUu i1VRAjrJakQC8clLCkSGhjQ u7qaKnl fXbfRF8nUTCrtamcIZOfoM9 cPECrpIMazBroCM3mFEYvqc qvx244ZgHwVWN1DUKcgSBwZ 2WzeN8m KfSwMJJzRUEfB6TwiOXvJCp aT803NKjjWuS0PAAtngBmP5 XfKUVbdWokVmE4f3V4Fd9BG DwvdGQ+ JB81iz84O9RdVqviWmw2SJU kNPD5aFQ6uA3hSWOsTNtfp5 X2nZM7X7MbefMoks8ep1ssA XBzZTog T83wyMXgv9B5IBTuiBC0MEG fkSexQbWdnW06Nbb+PGNvbG qmc7EaIliwa6vhg0ariOt9Y jMwJSIg kjHwlZouVGI6w0RxOh19J64 sIHdpZHRoPSIzMCUiIHZhbG oqri2dmI2dRm8+PRLgoTD1o NC2lA2k FwTnBbT7PIeuW112XmXafMP hJckfp2lho3xjyRa7VvJgNX JpefVqgNqnIEU8r0QrHb02W 2NvbGdy o6BvCqv9km57tWLif1P3gYE 8T7FvIKRljxugjWBpvMmrSK 0pUBIdvbfsVIDoeK7aRINnS 2s5TuDh YpS2ITflL4BxhxW6KZArmMU eEMXofKBHeM1qlogyf7ihoc zsVyEzGSGaZAh8IWq8BMJyf WduOiBs TIR8DqF6NJD3hNUunI5njWr kegbmqK6sHtr+UXe4m9wgcD OaSN9uxZC3TY07OB41fOGtd 0T8aRX4 S0VmSLWdnftughqhqIG6KWN tOBVhmM91Mc0zcUeqFc7vNP MsRAR3MWBlmASfF6AoaL9oC iAjMDAw JIAaO0PqqZHmPQejL004GDb zNaK1SUFqcpFaF5MbFQMrgU mcZtO8a6Q1Ff4OTR71BJ35H L08hMUh b7E5jOX4M7TnNEDtyblirvw xiYY8RAQhSMMxgK17Bf4awV wvQp8bMZTtCRU6XJXmsVNmI 1BorK4o JoAsGRRjSQYwT8YylBWqOAf bC242KHsoYqV0PTUjymQvL3 HnJNXhqBjgOgI4z0H0Fk3GI a28VR14 RP28fNBoz7P6nKF5S9GlRPU iaowllmqwaXA3PUDrGSHngE 59Lp7dkHkbHm7tCLVzAHX0P FRpbWVz M2OtsX8lZrTuKJNpVRZcW6I igRTiGGpvX700QHizCjQ7OW HcayMtB1XmHOOjrNprTyA4f 1T0Xf1F ZWysefk3I6OlPqyunOE+PC9 1GQAgGX31hJXkxXSbc8ipaI e0GvQsLBViATH9qHcaTRowy 3JkZXIt Y29 (more content not included)... Normal [facility] Progesterone LCon 03-15-2024 Progesterone LC 1.4 ng/mL Invalid Interpretation Code [facility] Comment on above: Result Comment: Foll icular phase 0.1 - 0.9 Luteal phase 1.8 - 23.9 Ovulation phase 0.1 - 12.0 First trimester 11.0 - 44.3 Second trimester 25.4 - 83.3 Third trimester 58.7 - 214.0 Postmenopausal 0.0 - 0.1 Performed At: [facility] [id number] [place], [place] [id number] Sarah Beal PhD Ph:[phone] Performed By: #### 3 [id number] ####[facility] [place] [address] Provider Orderson 03-14-2024 Provider Orders [id number] TGTIFF [facility] Coding Summaryon 02-20-2024 Coding Summary HTMLBase 64 ZwaydrhwPRa5dXi+PGhlYWQ +BP5MEOPcS18ymLFljM8fT3 NMTElOSywgQVBQTElOSyIgb pXlLJ6seGPnXKEn IC8+LQ5wXVAhMimqlFRqd8S 0gVJ8N33dhh5zDEdwnLU1HA NgUpUzsyxkl7uieQm1DVbqH mluOyBt WKMwoD09UES4zS19Hz62tJC koSTri4zgnLe9SsRpXUOyOX U1vXplKOfto3SbGMZiM87pk FUfy5Z2 CJHzfKmcrYGtWlPzjNB0wO0 rVEiziszny0midnhzRwt0pa 89mSUyt2R1sYC4Z2ScldN1L GJvbGQg KkcrrSJGvB2wyyrea5jnbaq wByJiBKStEUy1DIo8GOCvjP fxNwQpKW55FMZ5DBKemoVgP 2FsLWFs pTxcSsZ6j6W4Hf4KG7JEZcn yK5MQXAHUPEjhgKR+PC90cj 98R9PhZchoZrp1ECIiWKP9o CZ4hJ3w XZOoMFyvp4U1wRY4K9BwrjN dkf6qd7dxNFNqYPhgQ65nfI Rch3D9XGZjvXX0WKSfyRjcA iBzaG93 Oyc+RFDpkAvkx7UgEnymb2n hl2fioKc2WqjaCNItqkHagW lgRYH5t9PsVy8bDEHurML6n ND5kL2s WbTdXqF2CFdiK106AnVnsZR qAltjB47yF6KrhXS+PHRyPj f4UPIhhOikAY6qY3VwWUWbd mctbGVm uUyiMV6pQZRsqrlpSFXmhJ0 nIKKgB8w8XwGnZxZ0ZBaiM8 YiBDZfuxbsSi09jR3mWvTkJ wF5FVxj B2YumpL5PJAzpEWsUNuqOVJ 8H65gl8D3CQUoERXxPSC4xR M3hU8qcIyvzzqvrEDbuGome mVydGlj KBgvNKpiE159URBiwFrdCuM vZGluZyBEYXRlOiAgMDYvMT cvMjAyNDwvdGQ+ULNeGPO5v WxlPSAn hHRyAHhyWk0ofCfxuEdxYG3 bGHZiwymeNDYhfH0sNMSnnW MmdAyaTH4uVJPomrsyl991R iAxMHB0 MBDtfZWaO3RxbG0nKpUpFMV nPBSrK5CbnCQvWRzgD824VM ssHjZ8KCVstsQdQ0GyTEYqf WduOiB0 l4B9Uy0Xc3XwrgwkD4AqaOJ aDkCnJjyoKCr6X6AyRbvrlF I+FB25AZCkEX45FSe4XMS0x WxlPSdi ULVxJ3RkhE7hBtMjVCXaSRY kOyc+PHRhYmxlIHdpZHRoPS tnKFWiUxInwOgwRM3pNw2wN GVyLWNv nUhvvZVhCjEfb8suZRZvLZh cTN6emHtjD1UjlIC1TXQng7 f0Mi80U31jD6AjiJW+PGNvb KM4fKF3 fP2dDaTbJbM3JEvqQ349AcO yvBEmEgjgi6nkf8llcYj4Df J3MXDtfoThnJnpLAE1z6YrO t02M05i IHdpZHRoPSIxNSUiIHZhbGl nks7oeG0eBt6+GKUklPM1sB Q7aQ1fUpAgIuJ3ANrzF978W nRvcCIv Rqjkb0tsj7viiGw3WoYmAHO svyMdlFjyOIA8y9FwIn84E2 EefBosj7QnWih1fz58oVYci 6I4vDF5 A8AyDTNiqlomsKZobMcyKM1 iTKDzqbylXQGhtG9pDCTwI4 p2XuWeBzA8KZbiX5GuhzX2T GJvbGQg MMQecGNRhI8lsqokc0mfhyd oGbFqLYPmLGx2ORf7YFQtvN zoJcBbQZB3VyG4TTG2xLRyj G3vqUfo dlfnkW5gMrb+PHU6aPBuoDZ CHG3aQkukvRF+VSKuDLM4kX duRFggCREhcP5hUPVdE0e2P iAwLjA1 FKovK9JhrvI6CIWxhGZbTAX dmQUEbM6bzzmsv7saszdvXv ZdPYXpBXs5BQy6ABLrvAcdO iBsZWZ0 VdS6LSQ0eOSnyE2ngLipsvm wxC7vAqj+NwrslOgaYMB0VZ i2O2YlKqa2RKLrbSyaPJ8yr GFkZGlu Cj5cqZjohKlqGN2uUTIgxxj lx929HmQwl7jvJGWkaVCoBY tdHCO3H28nr2Q2LYKiUUBqG LX2hTZ7 yJ2lfHhgiocwoKLexJqqxeZ sxAmbVBkhNHdfF471VUAwtC oyDnCjOFb8D8YxXgi5MRKgr BhmTQ3a vRAoJFsgQk5cqGwoqWjoEC6 qSNCowbwjx171VdIkv0wqTH LzmWTeREvjHTX9S01oi8U3U CMwMDAw EZR8tFQ3tX0ykAfcggujoPO mdDsgdmVydGljYWwtYWxpZ2 55XZWxpOhuTlVfkAa6Q6FxR ai0GGOq rWpqBI0raVYqLWkuVg0eiNl tlQqwZL8gBXNrsprks884Vc Qxu2hfODNcrXOdZSxfSEZ8O 70ae7K4 MSZuSKOgHTQ7jTC5oK6qvYt nbjogbGVmdDsgdmVydGljYW fjKRldI147XTMzbZmrAvZdf GllbnQg MAtmVFo7S1ZmGjwrwQK+PC9 0VHNqGY58lFOlaSTea0tngC o9ZgNcGWOlMGN6bXqmWOamv 3JkZXIt L82anUHxo4N8CZQxfYcwgWL jQiDhsGC5dE6aIRuwbnpby1 vxwlsgCzwfs9scua05vD86T 29sIHdp ZHRoPSIzMCUiIHZhbGlnbj0 saP3rSx9+CWZseAQ6tSJ7uY 0hVZMaVgI5UHlbY553CePyr CIvPjxj b1cqj6mkiIp1HmN4OTEtviC usZqjKIW8v7PxSl91A91mRL dpZHRoPSIyMCUiIHZhbGlnb w3deT4m Ii8+DVExsGF9vGU0vT2sOxV eDfK8QOtkZ940VwBtsVAiUj geW35vO8RuyMF+MWLmKqg2A CBzdHls YN7hpDUdAJobNc7bMIW8AwA aLpLeTGyaQ8PuOVTjffalcn tlfVA8CPEkECJdbP29Px1sx DogMTBw eAVHiM1xmehsn7pcehokOyO vXKVrJVo7WWy1FCMlxDooWk JyKQS8NwB7MBM7tHJnnM1ye Glnbjog eL5gI4WuDAKwjxgiXv36pS9 qSsEzGeL1NJwpKkw+Q1JBV0 ZPUkQsIEJSRUFOTkUgTUlDS EVMTEU8 E7NdUfm5PJWbdDyuHB5bkVT vCVoaCl5gyRrxdXhhZA6sAP NznufkQAWgbV7qAALuyVXdu VkxOZ8n AOKclrova950DzKqDGT8RNP quUYrB5WkdC5vAcNvOWBnBT YhC0YclQWrVNpoH299YXjoS kI3AYUe uzTjA4OnZYTnkVwgGyT6n7I 9Gh8yCe5uSM2gQKy0RM50ED 26nEXjx5L5xPK5T8KiOWOkd mctcmln iJQ5SDYwAKRkhQ22gNJcBKt mCd6sr7U0c019JWDwQWGzmL 84Jr8ugLmuEIPbzMMVdL0ll fepb7lv gfzkKvOwBPMhWBm9SUx8HJF efUuzFoWjCMT6NaO1LLF7kY SjaO8scUblogxbuA9bHze+M jUgWWVh rtX4R6ZgXdo6RODoeLqcNC8 zeNMsJPxyIf2mcAgtbNwbAN 6dTSBgbfvpEWAaiD7qXPZus HRvbTog IU2tESGhjdlve614MpTqIMB 0AEOsrKOzB7BmaR3fWsMkXP XyJDRgO5FsgKMwIGtqN814W GxlZnQ7 UTSflyKlZ4IhYNJqiUxjVvJ 2g0Y4Ck2SYN2TGZH3I3LkAr a5BKJdaTrrMZ6bmXRyARyxH c5bmVxb pBnpWO1pUFMviqbcFRIwpW8 gIKPueTBkuRffCG5kJYWdja hba468QyLgMSI7HBYtrWOlI 6UkcY9b BxMsUVRyOLFnU1NfgWJyPBu vZ585JNgnZcO3NJKjlhHwC2 MyAAIbnJkbNlS2j1I0Bx1BK DwvdGQ+ CW43hd39X8HmGwlyXjq2EXS vYMN1aDM8jG4gMLAdKRmbp1 Z2fHV0H7RwbtWxwa8ou5ujT XBzZTog M75osVKmz2Y3EJLskIT4CMG ipEmnOsRnmW83Vhx+PGNvbG bfj5CnJpznx3cfe0dzrLk1L jMwJSIg fzTdkYlgKTW2f7RcIl38G56 sIHdpZHRoPSIzMCUiIHZhbG lpdu8nqY4aIc3+PQDueIO4u CO1wC9j IzDzTvI9AKorR216IsWudPZ cGfmem7luw0wqpAx6ExNzBZ RirwHgcUysPQZ7v7ZwZp38C 2NvbGdy i1UfTbt3vn62nJXoh1V6vUJ 7O1VgIHMzmriyrKGftCanOC 7jKBKqgdasXMImzT2qNQOwI 2r1ApJi BlP6BSffS3DyekW0KOKefVN hWQZlvPSHjI0ckfhsv2pzgn ksQuUrUJDgMBm8YQv9FBQec WduOiBs EWW1TjA5NHV1fWAklL7myCx otyovsN0vSst+KVj4i6arsL PhZK2naPO4EP64FU87jJAiv 8P6cWY0 U7PlDFJeesxwnhuixBE2WHO fBUQkzG61Nl7ivIdeBa1cRY XjPKK5OUSehFPkS8ZviO9uL iAjMDAw PIApQ3WowUBcDAkqE728DJf vEbL1ZIJnigSfO3MnAJEzxW rkKtA8v6M9Vc3YXL53XP86I G89lZGx k7F9pCB1F8NlPWKelyhjoqh qxKB7KRLkRFBoxG00Nv5ooV qjSy8dJWBqROQ4WFHhiIJkI 2ZraM3o DeTgXFYyHMDbF4TzoGEvGVu kP408UOciOpD4PNJczuBmZ0 QkPAUlkVehLlJ9p6K3Yy0RO t37CR30 HF51zMFyk5U1eYD8I4SjSMT qovmacdkmzUI6TUKwWGAzwE 59Ig3neUzaTr4aHMQuTZG5K FRpbWVz M7ShtK3fMiThRHKjIANxZ1Z yyCEdDRklX124NPshQqT6HJ GlaeCyO1MvGAXepBivEcA9k 7K4Fb7U LCcndiw3A5ItXngidDA+PC9 9NVHyWU30dHXfvPRds1sjtE v4ZiVwNVKtEBB3cSaxXBwlj 3JkZXIt Y29 (more content not included)... [facility] Progesterone LCon 02-15-2024 Progesterone LC 18.8 ng/mL Invalid Interpretation Code [facility] Comment on above: Result Comment: Foll icular phase 0.1 - 0.9 Luteal phase 1.8 - 23.9 Ovulation phase 0.1 - 12.0 First trimester 11.0 - 44.3 Second trimester 25.4 - 83.3 Third trimester 58.7 - 214.0 Postmenopausal 0.0 - 0.1 Performed At: [facility] [id number] Sarah Beal PhD Ph:[phone] Performed By: #### 3 [id number] #### [facility] (DEFAULT) [address] [place] [address] Provider Orderson 02-14-2024 Provider Orders [id number]#1.00O TGTIFF [facility] Coding Summaryon 01-19-2024 Coding Summary HTMLBase 64 SwmmdqseDQq6sSe+PGhlYWQ +MH9HYGEfI23djIRpbX9fY4 NMTElOSywgQVBQTElOSyIgb bVsHB5gaFFkQVNo IC8+QQ5gRIEhKsrcvELdw1Y 8gFD7G01zvb7bFTkpyQD8CK JnWvCjoawhh8khaUy6HWacT mluOyBt FTKihQ13COI3aM52Dv54vDH fhHZrb1qinEm7OlTlJPIcUU U0aHpbQElyq9GnBFJlX77wz ROfw8P0 CVUxrXmnlGIxQeZlnJS0hR7 pGJikhlzha5dsuqbpAht3na 54hSBan8B9mOD9C1BkgfG8Z GJvbGQg BwiiqGXByN4atzstl1adayh vBaQfPRGwELj7QAm7UDWsmM fmDeVrFM16MNE5CKSdmgRhP 2FsLWFs kUiqSeQ1e6A0Ug0QW1BFZka tS9UAALLFZUekkGX+PC90cj 56T0HzEpwfCog1DHGfLBQ9o PA6dA9a ZCSuPXmen6H1cQS5A0XhxnR ypo9pk9ukXMJfKAhvM48esZ Uga9V1DQRcpXH0BHUvuMykT iBzaG93 Oyc+AEOuxOocj0RuXpbde5x ti6vlzMn4AqvwUQZjmbVjyD jtGXS3x8AtLh0bLENnmJK4g FQ0gD1z OuMwAfR3JRoxU033OeOkmWZ tGqncO04tT9PqvXA+PHRyPj a7VKUhcKyhNT0lL8NaEGCfc mctbGVm iHggUA3lXRPnxlkfNPTycB4 rPTWsB3n3NnByUtZ8XIbwA8 PwLVMppubmFf87pO2iZuZnI dD1WXqw I9RfigD9YXHewWGqRLjtFCD 6I07cx1O2DHHnVISfIQZ6vE Z8oF2hoQxhgdnlbFWqkUjeg mVydGlj PAuhFSsoN869RQMlrNvhFiN vZGluZyBEYXRlOiAgMDUvMT YvMjAyNDwvdGQ+DCChIQG6f WxlPSAn aKAlXZggCq7iaRpqcXxnFT2 xYNRgvefhJSEvxK3aQOZemY YnbYtmGG7rTRTxgegbd330V iAxMHB0 JDGmlVDyD1AzsQ2bDfXoQWN fCJRcR3WmzWYxMVhxC063ET ntJrR1HMCtdnPoV6IdVJLcr WduOiB0 s5H9Mh2Bg0KuphhoI6IdeIZ bEtSlDbhsWHl1L7SsEkswxS I+JL11KAUvRQ64NRl6SAS0y WxlPSdi IZJbN9CllJ0qFgLgYZUgDNP kOyc+PHRhYmxlIHdpZHRoPS pcPXEuBhFgtByqPX1bAr1kM GVyLWNv vBgagUFwSvXrc3vyVNQxZPd dHV8psAdlL1MmpTK2AUVey4 e2Hi73V45gD6KmtDK+PGNvb BK8iBR1 dY0mGdTrAgJ8FHjdO450MwW rhDXxYtidu3eeu5duwFj4Eb W7UVMrpvPllZbjWAB5m9ZxE d47Z09m IHdpZHRoPSIxNSUiIHZhbGl gsd3fuC7zEi7+MHDeaZT3wV A5bI0oFxFiLeE6ZTrfC249G nRvcCIv Cmoux4ifz0slwWa8LtWgRBH zcrDdiNrrBSO1s3PyFt24E6 JybAxms1VuEiy7su47eUCmc 3Y8nWC5 U4TmOOAmkpcnoPIiuGzlYN4 gSVYvwabtITEgnY3rAQEsA7 x2OpYpSyG2IUipQ0VohnE7Z GJvbGQg OFNmgURIzJ8jtkcbi3kqgtk gLpPhKQPpJIb8RRk1FFVteQ rcXzCwQEI2UxQ2RQP5nIAdp R0lgOyi lzmlhR5sYgc+QFT3oQAylWF THR7iWvysiOQ+TAOgOZF1iR znSUovEZLwrM1vCWVdW2g9M iAwLjA1 RRksA7LgxhV0HQMrwLEpKKH juXHZsB4ekihxe7uafwwbNx CxASEcFCr8PXk1EUCynOeqI iBsZWZ0 NiD8DGH2gYVxtR4qmNiafua nlN1cKps+SiwmyQvuLBZ0KZ e2W9CzRwp4CTTmbQwiXB0vn GFkZGlu Sl0xkRryuKoqWA4gHWPmjyo gm564NhOvm4ngCEXboVRlQO wdNAH7B94ya4C0SDMwFPUeT DP0gMC6 hM2juTzhidtlyXRcrHdieqN fmDynTKgoQOeiG537YMSctV pvBiSjIBc6J1AbBsr4FTToq EwsML6p aPBgCVrsMd4adZzvvRggCQ5 tNPCaneaqi166YqYrx3akYK EcpNOaDHxuGUT9K97va6T8O CMwMDAw OAG3eOJ1cE7aoGdfbqtnaAW mdDsgdmVydGljYWwtYWxpZ2 87GQPjoYexJsAvsFq9A2TrL tc0XHCp uDqnLO4iqYSgMAhyZv4esBl xcTlmSE0kWSVebwvun934Ni Ogb7ouORTgwRVaHWpnTWV7Y 99in6E6 ZVKmHPHwGKV4yDC5rO5fvXh nbjogbGVmdDsgdmVydGljYW deFTfkB962LCRseXnqCaDxj GllbnQg UJbzBUl4T7ItFpfsrGD+PC9 0VLHlZJ98tGNxpQPtw0agwG a2HaGrQIUwJEG0nZozHJdtg 3JkZXIt D27itXKdb5Y3UPZglVyndHY fGyWwaZN8xR0iANwhummgb1 tqxijhTwsln7dmkh32tU83O 29sIHdp ZHRoPSIzMCUiIHZhbGlnbj0 wxR3jOq2+ZWYxuBM2yAI6oP 6fJYRrDoA9DOhbP732LtNpa CIvPjxj i0kct2ligWj1DxR1UOEdxmX pgOrzMAN6b9PuHq21S77zCP dpZHRoPSIyMCUiIHZhbGlnb c9ouC6e Ii8+VGUtyNR0tKP7rX8dFpT qJaW3POclA982SvFtjEIuBg siW12nD5YyoUT+VYNeOna8X CBzdHls KR0npGEdARnjDd5nTFB9OiB gInHpBDktW4HuPSUjfhwjqu maoUT9ODHyRSMuqZ20Ik7uw DogMTBw fSGUxG4sqgdij9cmuejzJtF xTUFfVPy7PLl8EJEkwZcsEd VrJZO8XkX4GKW2xOUgcM6ua Glnbjog dJ1nT2KuXTKcxrsoYs46dW4 rRlAhStU3PFgrUlq+Q1JBV0 ZPUkQsIEJSRUFOTkUgTUlDS EVMTEU8 V9CsXcm2VEIqwWchTY9dlWX wYBueRs2mmSxuhZtiPL8aOU GemcmsCOQfsM5bXAZahFBlo XidFD0u PQAucdlwu430UoNwZGS2FFH gjPHwA0XlhN1rGaPsQLYhRY EcY0PmdCGcTPekJ639SBskX xR0JEOc jzHnO2JgUGBtyEgmBrF2e5G 7Tl7zKx7iLR3lZTr5EU86UU 01lHMbp8R3lYJ8R0XoDKHxf mctcmln qEG3NPVhIUSksK22gLYwFIh xSm0kw0F1a345UMZjPXJlzD 81Ic6hnYrbTXCwnXSMzZ1cr bspb0qs hgypOoFnHTMvKCz2ZVv5XLS pwPipNaNkNGB9ZyB2JYN0zP BvhK9ybVmyistapN2dNry+M jUgWWVh ijJ8D4PcGdb1AYRsaVyeHX4 wfYQtLBqoDz6tqKjqoXwiUT 7gCDAvretjCQRsdZ3zGEIqb HRvbTog VU3mOHHreyrrc958YcZlZTC 5MWCatFZeZ4PfqB6yNeWkNH RjCDAzY6FexEYoCOkvH502G GxlZnQ7 ZISkppOpA5RqXRCnzZgnBsU 4w9U5Mw3LGE4KRJW2O2UdZo e3TIVmtGgqSG9dyWLtZIesH i3eyUji fXwxCO4eVSNdalhyENTtiU8 vCVSzhCFtoYdhOG2sNWIklp zyk032TaWxQNC2FDNmeMMiO 0BazF0w QxNcJMZvFBCvC0IktYVySOl sN913QGsfGaM7LMToyxTsZ0 SxGNBcvHfoSwK1b1F9Zc3EF DwvdGQ+ PS58aj63L0ZkDingKbv0WTE aSJE8kCQ2lI4vEWBqDMsbc9 X7aFS8R6FhdqYtrv9hd2ugG XBzZTog S20uqQTrq6G0XOKebVY3NQA dtZuvIhXeoD69Rrr+PGNvbG xjb4KpBoilc6twz3hpsNd0B jMwJSIg ylItzKpsAHT7j9CgUz48B59 sIHdpZHRoPSIzMCUiIHZhbG xmyu0qrM3yGa7+CYGhoCZ6z XO6jU2j BhUzTqW9VTywO427OuJldLZ aVgzxs0ryl1qnaUv3HsEbIE BvebNhiXsdHFA1l2GhFz97V 2NvbGdy w4OmTfd5mp33zUNib9O6qES 5R8NjHTHeihybvTCifOmxEY 5sSCOrezdmPHXqqP1jGDDcM 2r8PnXu NbE5OBvsV2VlskS0BLAmrAV bRKEvwNFXpM4odfrcr0bqhq enZuCxIQDmZCo9WHe2QGClu WduOiBs CWZ7QpP6FXD9tDAhgX2oiKb djjaciB4qCfe+TXd1u2qeuR FsVU8gyNM8MK34CM71cVJxm 2W5zFC0 S9LhNAKixszyvizlnCN0JPW yOQJsvW87Dx3dyLdrAp7jLP QxXFB5CKDupDPvN4BeaJ1zT iAjMDAw WZLsW8KvvUJoGGhjY584CJx xLxV8DWQjcxIqD7KaEJRaqI bjHbS1w5E5Ez6DMF41VX65U R11wHHa y4L3nTE5F2YaURXmjwyhtwn ilOZ4XKDzIMPpcZ17Ta8bmD wyTw9nQHPoYFP8MLOneNIpB 0ZzlV8l CaCaVDSzBHFoK2KraJDeOVm gG094WHnhFsV7ZLNtmdHyO9 ShNMGkgXykDqZ4c6N0Tk5UA i45FF73 RE12mICol1G3eWB1A8RhRRM kndjnflejmJS9SDZjPEIueT 41Sr3fiOegCa2yPAOrDHW8X FRpbWVz Y7GxcJ5qPlAiSYGnAPOzY0T rxQTkAUxgC553PUzzAqT8AQ EoatVwV4ZdREKzwGukWxT0z 7N6Bl7I ZYevioa6Q0FzUqzxmCY+PC9 5UIXmBZ09wNTqbNClo3ccdJ c3LgNvUYHuVIG7vMsmWPfaa 3JkZXIt Y29 (more content not included)... [facility] Progesterone LCon 01-18-2024 Progesterone LC 14.5 ng/mL Invalid Interpretation Code [facility] Comment on above: Result Comment: Foll icular phase 0.1 - 0.9 Luteal phase 1.8 - 23.9 Ovulation phase 0.1 - 12.0 First trimester 11.0 - 44.3 Second trimester 25.4 - 83.3 Third trimester 58.7 - 214.0 Postmenopausal 0.0 - 0.1 Performed At: [facility] [id number] Sarah Beal PhD Ph:[phone] Performed By: #### 3 [id number] #### [facility] (DEFAULT) [address] [place] [id number] Provider Orderson 01-17-2024 Provider Orders [id number] 021 [id number]#1.00 OTGTIFF [facility] Coding Summaryon 12-21-2023 Coding Summary HTMLBase 64 NtzwlzctLBc2cVz+PGhlYWQ +BC7CFPJjZ07blPFtjG4qQ2 NMTElOSywgQVBQTElOSyIgb rBqGN4rtQCkURRg IC8+FT0uBRFdOmtcsFMfg2K 4jOB7J99onl4xQHjtwNC1VT CbRsTjvjxhi3hraEq6JLqsE mluOyBt YFNrbY41CXF5tR58Qa54dHZ kaQLvo9veuAt6VkSaRZUwMD A8nOqhGMcvf2JbDVTrA58qw UWne3S6 AEAnlZmgvNIoBdFlwKI1fN3 aYCktxqxaf0kfuyvsVvi1qb 60zKAjw0X4tMF9O8MfueI9F GJvbGQg TjivnUKUaN4tmubyj8udgdl wMfPsTGKdSQz5COj4AKGbsP phVsWtOR51ZDD5HYIilrRhZ 2FsLWFs mDztHuK2y3B7Ge4QD6OMRby oU1XIHDHBRGqxiMA+PC90cj 49O9UmGzvrBpd6TEYxPWH1o AR7fX2l SZTeHUalh7P6fCG0C2GrboE cxu3gb1feZAFwJRvgG96baX Hzh9A8RYXvgRK2BLUhmNxsX iBzaG93 Oyc+EUEfaYxre3UbJdfle6u bl9spoJc3RwflIDRhqiMldZ wmCYX4j1PxJt9aDFVcqBE2f LU3wW3y ZtZyLzB5KXlzF993ArIxkYL qBqcvX53jQ3CzfHK+PHRyPj g4FGStzTuaSR1tR7MsHPLjy mctbGVm aKvwGH0iFYJjtkhnLRCltF9 oXOChX0i2WpCaNpS1BLzvA1 CmBXMvlqsfNw19oJ9gFzFoQ kH6SAio F7UyqoP0FSMthIFcCChvJGG 9N23rz6C1NQJtXMQjKEP4rS M5kC5fcIivoyfydBYobVxhg mVydGlj JIfjHHylP222TXVoaSbrAvZ vZGluZyBEYXRlOiAgMDQvMT cvMjAyNDwvdGQ+HTCvDKN3z WxlPSAn sRDrIIdxCr9zvLpxwEukOX6 kBWOsehnfFSDqmB2oEDGqwR GrpVsyCR2eRYPnaeoxz007W iAxMHB0 HTXckRTwF1HzdJ0xHfCtJXC jKOAjP1RapLZfAIpmA201DW coRiH9KOGrcsAlO5YxQCEtg WduOiB0 o8G7Jf9Ed9IjgvhiE0WkqSH gExMgMjpsUIq6L0StHkkzeQ I+BZ14YCUwIM08ZGl9XJS9s WxlPSdi OUDpJ2PajX5sBuZoFUSkTWT kOyc+PHRhYmxlIHdpZHRoPS eyMJQzEoIvdIchYI4tFq3hT GVyLWNv eWzenVWnEuFwk3udYRZiXYg qBS6tcAgtW7CxtJY7PAYyl0 m8Tp74O33cE3StlZT+PGNvb HO8aUC5 lD0gAeDxQyP1GXaqR348WlI rmIIgQeape8uoo1udvYu5Bc U0HXThqxWopDqyWOT4t8SxH b99O28v IHdpZHRoPSIxNSUiIHZhbGl gmk3ihN9cSf2+AIYbkXZ5mC S7eR5iUlUeMuB9DMuvQ443V nRvcCIv Wmyxk6vbp8zlhNa3EdVhPWJ edsPnhMryMGX3v8MzUa19L0 RwcXvba1XkQjt8rf06pDGxh 7E3hHP4 K8YpORInimkgzDGslOozMC5 eBWIoxeszQQRnmG1yNNEtC9 w2WoJmMzM0WCobU1KxsxM3G GJvbGQg IGDuvVXLiJ6nmouty3xqnrl cMhCeBHZtGUs0WOz3LZNioB bdZoSeMLD0CvU2UNM8lGObb U8xnUcl fhvtxU5wDhl+EQX7lIApkFD KYJ8fKcpvxCP+XEWpLGE4kK lyENvvRHZtnE6oWAXwP2e3S iAwLjA1 ZXzdY3YnupO8FNUxvODbLGD kdJGOlL0zdxhfc7oeeodlGc YfNJJnGAn1WHy0MDKtsOkdP iBsZWZ0 OfF4LMN3mINesF4wbZaggsf epI3xAwi+VhnfgUnsIPS1XP f6Q9FtAxi6SRGlpHyuSI2op GFkZGlu Pt2ptJkojAzcEY4fXVYaiej sv339PgZgv0irHINrqJBfPL ejMKM2E02tv7Y6HFTpVRWgK AP4cDP6 uI5nnDagvawseEKigGggsaO aiGvgBAkyTXmmK486ODStuH ihCvLqIGy1M7PsJoj8ERHlw XguVP2f xUKkAHovYv2bxPfsiChkGS1 oDREkkgewm674HyMfw7hyUM PbkSDdVRphGNC5M98sx6T3D CMwMDAw CAT7gYM3kP6uiWbpvihflKQ mdDsgdmVydGljYWwtYWxpZ2 02DJZvoFrjQgQjqAy0D3KqT ud4ODEh rGjwKL9daSOsOSpaFs5nsWp cuPuoHW9rCCNedtogh577Ka Eng6tsAFUsvIYqYYzgZAQ1Q 32zo1P2 EZWtEUAxHOC4iLS4dG7vxNi nbjogbGVmdDsgdmVydGljYW ndAProP529BOQdpWfqIoSav GllbnQg TZciTOa1Y4ElSirruZH+PC9 7NFYdUM67pOBklLGpz1esrY h5QxAaIXUbQZP4zIndVNtku 3JkZXIt F63paXPfy8B3TSBxiWxtgIV yVhWtxRG3cU8oBEplirskh2 zxjmtlIhcdy7suxf41lI37N 29sIHdp ZHRoPSIzMCUiIHZhbGlnbj0 kqA5jYo6+VYTkgAM5gJL1iX 1dJJOsWmS0VYheZ092TvKnf CIvPjxj x8mwl1rkaXj4YzL9KQKjueY hnNeoLBB1v1JhCu18V49sRF dpZHRoPSIyMCUiIHZhbGlnb i3enT2k Ii8+KFEtdXW6cXF9hH6nRdM hDgZ3RTsrI592FsLmkAGlRx ufZ21rV4FatZF+YJNuYue0T CBzdHls UL9auNVtKAdfLm3rGAE4LlJ eImDiGOivE2IwTYTcpdjxqt phwCK6RLElINVtyR45Vb0fz DogMTBw zXKGsU0ykkszk3mzhymdOjH cADDqDPc6KDy7XEJbtSotKd PpBPN5PdJ5PNL8gPUrqD2bl Glnbjog zO6jE9LfLQOtticnNp63aC7 iVmJaOzF6LIdlJho+Q1JBV0 ZPUkQsIEJSRUFOTkUgTUlDS EVMTEU8 E3KtJqm7FSVeuYtrZZ9jmAS gQQlrTm9opMdolLftNK4rAZ KjtbazYXEjnH5uGFDxfSBfr QmjFG1m VPLlopftc697SxPuNJQ5QPO ouGBvV9WtxM9bHsLnIFPaQT AnD0AtqTMeYPtgI677UYlpX aE6MDBn wwZaL3WpNYFpnPstGeA8u2E 3Us6nWi5iEB4rITf1ZZ24AU 12zEDku4L2yCF9J0TdDCCdj mctcmln fOB8YHHfYUKeaL85kMWwPEo vMm5lf1Q7n628ZHDoNABofA 90Xw9pmGdyXHGlkPVVkT4mo tmoq9tx nwizPiYqBABmRAg0TVs8DWS yhXxzUjIlTUM2CkS7KHS8sA NgwH0ytVrzdlzlqG5nLfv+M jUgWWVh upW9L7RmAng6ATKslQidFR5 okBAfVWwzTw0fnPtyyKpdRH 4qHLEuxupnDBCmuZ8oNKHpo HRvbTog RX8rYYTajxtef856ToFhWWU 3APJekGZvD2PrlM2kKjZhLN SoWZGmR7IoxGNwZBebS071W GxlZnQ7 IXLdbgBlT5RnEMJgzHjvJiA 9m5C5Hk2ZWQ1NUUG5T3QoMb p2WFPuiUvoSC0pgDBqRArfJ f0eqRmz uPxgNY0pYXYetgguVJZykG6 aIGItrGRpwGjbEP4qERCdeg kwq698WqQqNJJ8APDrtZOoW 9ObdK8l NoBgNISdSIGmV0XwrFCwWJq cF644CFjxSyY4FYWyfxHcI3 PiZHEwvFneLzQ0s4I5Ie9YS DwvdGQ+ YJ23jz57N4QrVnjvZcn3QUZ sEFD8xTM5uJ2rCDFdZVmht9 K3qTH3O9HcepGceg7cx5oqX XBzZTog A70dkBVkp4C8KBUfxJS5CXP gdVnzOhXnwJ96Hpg+PGNvbG lwr3VdSrjbg5ebc1louAw7D jMwJSIg jaLpgZthJTD8r6JhIy79B93 sIHdpZHRoPSIzMCUiIHZhbG dunm2hbZ3jRj2+QJKufJV1k IE5aB1t AzRsVeP6DLuiJ944YnMfzCN aZzwqm2tet9ffrWj4AzInMO JknmCajGimFHU6l2VjYi51H 2NvbGdy x2CbGrf8hu33pRJvn6T2pZU 3K7IxOASpdxyxcOUhpAwvHJ 4zISBplcvwDQJimM0mTXOsM 1k2CuBq QtW7XCfqC9UralF8WVTpiNV jKKIpgDLWdY1jrrsum0vcxt qaRlLsDYWzFGk7KWi1MHRuo WduOiBs EVN5HeT1FXF2xBBltY1sjRe qqelvxF6aTat+JMg4s6kxzF AoHP1buOD8MH60VI50gJRto 7Q6wNS6 P1RmVKTgcnpapgrorLD3RDV xDSQeiW64Xc3gaVeiDr5nND YwOGK1VVCemIJrG3HvlJ6gA iAjMDAw QAMzP4IpnVPhEOxnA195ZHg uJuP2HJElmlTvL8ZsLJLuzT apVwG0r5P1Zz6JDG90FA08X R43jKSi r3J1cNR2E9VtWXUaygjmhiu deHR2DEKkHXJwzH60Zi3vpR bhAk8wSDRlQJL1YEHyoKAgR 6DoxW9t DbTgORYeJPGaM9GxuCQfXVw sY903ABylWcX1FPVuszPdD3 YrWOApkWesGlU4x5D8Vz6MY m79TI01 JU83xELtf2C9tEP0Q1XnBNH ahkbiexphuBI9IJXoVJHczP 70Ds3ztNdbHj0rKNFyVRV1S FRpbWVz M2CcpW4iXrDvONSrKLZpO9M sxXRnXNrmP459DUosJlF4SS FenqQvO9EjTEKarSjbCmZ0b 4K0Bw8Z ZUtyzwe7X2GuZlierCF+PC9 5CRKnMT40eXKmcVRpg5ocfP w8FdXqLEMmPQU5jKroJAfjs 3JkZXIt Y29 (more content not included)... Normal [facility] Progesterone LCon 12-17-2023 Progesterone LC 9.6 ng/mL Invalid Interpretation Code [facility] Comment on above: Result Comment: Foll icular phase 0.1 - 0.9 Luteal phase 1.8 - 23.9 Ovulation phase 0.1 - 12.0 First trimester 11.0 - 44.3 Second trimester 25.4 - 83.3 Third trimester 58.7 - 214.0 Postmenopausal 0.0 - 0.1 [facility] [address] [place] [id number] Sarah Beal PhD Ph:[phone] Performed By: #### 3 [id number] ####[facility] (DEFAULT)[address] [place] [address] Provider Orderson 12-16-2023 Provider Orders [id number] [id number]#1.00O TGTIFF [facility] Mikael 01-04-2022 L --- Specimen: [id number] Received: 01/05/22 Status: QUOC Garber Num: [id number] Spec Type: Surgical Subm Dr: Rodney Lema MD Tissues: A Skin-Other than Cyst, tag, debridement or plastic repair (SCALP) Procedures: HE Stain/5, Gross/Brooke L4 Patient Age/Sex Location Account Attending Physician Sherly Astudillo / LATESHA [id number] Rodney Lema MD SPEC NUM: [id number] RECD: 01/05/22 STATUS: QUOC GARBER NUM: [id number] JANE: 01/04/[address] [facility] [address]: Rodney Lema MD ENTERED: 01/05/[address] [facility] [address]: Dea,Amy SPEC TYPE: Surgical DEPT: [...] Fixative: 10% Neutral Buffered Formalin (ESTELA/YJ) Specimen: [id number] Received: 01/05/22 Status: QUOC Garber Num: [id number] Spec Type: Surgical Subm Dr: Rodney Lema MD Tissues: A Skin-Other than Cyst, tag, debridement or plastic repair (SCALP) Procedures: HE Stain/5, Gross/Micro L4 Patient: Sherly Astudillo [id number] (Continued) Specimen: [id number] Received: 01/05/22 (Continued) Signed (signature on file) Debora Cintron MD 01/07/22 0930 Specimen: [id number] Received: 01/05/22 Status: QUOC Garber Num: [id number] Spec Type: Surgical Subm Dr: Rodney Lema MD Tissues: A Skin-Other than Cyst, tag, debridement or plastic repair (SCALP) Procedures: JASWINDER Stain/5, Gross/Micro L4 Patient: Sherly Astudillo [id number] (Continued) Specimen: [id number] Received: 01/05/22 (Continued) Microscopic Description Six glass slides with H E stained material and two IHC stained slides have been examined. The microscopic findings support the above pathologic diagnosis. ANALYTE SPECIFIC REAGENT (ASR) DISCLAIMER: The use of one or more reagents in the above tests is regulated as an analyte specific reagent (ASR). The performance characteristics were determined by the [facility] of [facility]. Immunohistochemistry assays have not been validated on decalcified tissue. Results should be interpreted with caution given the possibility of false negative results on decalcified specimens. They have not been cleared by the [place] Food and Drug Administration. The FDA has determined that such clearance or approval is not necessary. CPT Codes 73871, 60249, 44474 Specimen: [id number] Received: 01/05/22 Status: QUOC Garber Num: [id number] Spec Type: Surgical Subm Dr: Rodney Lema MD Tissues: A Skin-Other than Cyst, tag, debridement or plastic repair (SCALP) Procedures: HE Stain/5, Gross/Micro L4 Patient: Sherly Astudillo [id number] (Continued) Signed (signature on file) Debora Muller (more content not included)... [facility] Cytology Cervical or vaginal smear or scraping studyon 12-26-2019 [facility] Vital Signs Date Time Vital Sign Value Performing Clinician Facility 11-22-2024 12:01-0400 Body height 170.2 cm Ahmet Soler MD Work Phone: [employer] 11-22-2024 12:01-0400 Body mass index (BMI) [Ratio] 45.11 kg/m2 Ahmet Soler MD Work Phone: [facility] 11-22-2024 12:01-0400 Body weight 130.64 kg Ahmet Soler MD Work Phone: [employer] 11-22-2024 12:01-0400 Diastolic blood pressure 80 mm[Hg] Ahmet Soler MD Work Phone: [facility] 11-22-2024 12:01-0400 Heart rate 90 /min Ahmet Soler MD Work Phone: [facility] 11-22-2024 12:01-0400 Systolic blood pressure 115 mm[Hg] Ahmet Soler MD Work Phone: [facility] 11-20-2024 08:32-0400 Body mass index (BMI) [Ratio] 44.64 kg/m2 Cole Celeste DO Work Phone: [facility] 11-20-2024 08:32-0400 Body weight 129.28 kg Cole Celeste DO Work Phone: [facility] 11-20-2024 08:32-0400 Diastolic blood pressure 90 mm[Hg] Cole Celeste DO Work Phone: [facility] Comment on above: 118/86 second BP 11-20-2024 08:32-0400 Systolic blood pressure 136 mm[Hg] Cole Celeste DO Work Phone: [facility] Comment on above: 118/86 second BP 11-06-2024 08:46-0500 Body mass index (BMI) [Ratio] 44.01 kg/m2 Emily TALBERT Work Phone: [facility] 11-06-2024 08:46-0500 Body weight 127.46 kg Emily TALBERT Work Phone: [facility] 11-06-2024 08:46-0500 Diastolic blood pressure 76 mm[Hg] Emily TALBERT Work Phone: [facility] 11-06-2024 08:46-0500 Systolic blood pressure 128 mm[Hg] Emily Lundy PA Work Phone: [facility] 10-22-2024 14:46-0500 Body mass index (BMI) [Ratio] 43.04 kg/m2 Cole Celeste DO Work Phone: [facility] 10-22-2024 14:46-0500 Body weight 124.65 kg Cole Celeste DO Work Phone: [facility] 10-22-2024 14:46-0500 Diastolic blood pressure 70 mm[Hg] Cole Celeste DO Work Phone: [facility] 10-22-2024 14:46-0500 Systolic blood pressure 116 mm[Hg] Cole Celeste DO Work Phone: [facility] 10-08-2024 13:57-0500 Body mass index (BMI) [Ratio] 42.15 kg/m2 Emily Favian PA Work Phone: [facility] 10-08-2024 13:57-0500 Body weight 122.07 kg Emily Levan PA Work Phone: [facility] 10-08-2024 13:57-0500 Diastolic blood pressure 82 mm[Hg] Emily Favian PA Work Phone: [facility] 10-08-2024 13:57-0500 Systolic blood pressure 122 mm[Hg] Emily Levan PA Work Phone: [facility] 09-10-2024 14:35-0500 Body mass index (BMI) [Ratio] 40.94 kg/m2 Cole Celeste DO Work Phone: [facility] 09-10-2024 14:35-0500 Body weight 118.57 kg Cole Celeste DO Work Phone: [facility] 09-10-2024 14:35-0500 Diastolic blood pressure 76 mm[Hg] Cole Celeste DO Work Phone: [facility] 09-10-2024 14:35-0500 Systolic blood pressure 118 mm[Hg] Cole Celeste DO Work Phone: [facility] 08-08-2024 11:09-0500 Body mass index (BMI) [Ratio] 39.37 kg/m2 Cole Celeste DO Work Phone: [facility] 08-08-2024 11:09-0500 Body weight 114.03 kg Cole Celeste DO Work Phone: [facility] 08-08-2024 11:09-0500 Diastolic blood pressure 72 mm[Hg] Cole Celeste DO Work Phone: [facility] 08-08-2024 11:09-0500 Systolic blood pressure 120 mm[Hg] Cole Celeste DO Work Phone: [facility] 07-10-2024 10:45-0500 Body mass index (BMI) [Ratio] 38.37 kg/m2 Cole Celeste DO Work Phone: [facility] 07-10-2024 10:45-0500 Body weight 111.13 kg Cole Celeste DO Work Phone: [facility] 07-10-2024 10:45-0500 Diastolic blood pressure 74 mm[Hg] Cole Celeste DO Work Phone: [facility] 07-10-2024 10:45-0500 Systolic blood pressure 118 mm[Hg] Cole Celeste DO Work Phone: [facility] 06-07-2024 13:09-0400 Body mass index (BMI) [Ratio] 38.53 kg/m2 [facility] 06-07-2024 13:09-0400 Body weight 111.58 kg [facility] Nurse [facility] 06-07-2024 13:09-0400 Diastolic blood pressure 72 mm[Hg] [facility] Nurse [facility] 06-07-2024 13:09-0400 Systolic blood pressure 116 mm[Hg] [facility] Nurse [facility] 05-08-2024 11:32-0400 Body height 170.2 cm Cole Celeste DO Work Phone: [facility] 05-08-2024 11:32-0400 Body mass index (BMI) [Ratio] 39.16 kg/m2 Cole Celeste DO Work Phone: [facility] 05-08-2024 11:32-0400 Body weight 113.4 kg Cole Celeste DO Work Phone: [facility] 05-08-2024 11:32-0400 Diastolic blood pressure 80 mm[Hg] Cole Celeste DO Work Phone: [facility] 05-08-2024 11:32-0400 Systolic blood pressure 124 mm[Hg] Cole Celeste DO Work Phone: [facility] 10-06-2023 08:53-0500 Body height 170.2 cm Cole Celeste DO Work Phone: [facility] 10-06-2023 08:53-0500 Body mass index (BMI) [Ratio] 38.28 kg/m2 Cole Celeste DO Work Phone: [facility] 10-06-2023 08:53-0500 Body weight 110.86 kg Cole Celeste DO Work Phone: [facility] 10-06-2023 08:53-0500 Diastolic blood pressure 72 mm[Hg] Cole Celeste DO Work Phone: [facility] 10-06-2023 08:53-0500 Systolic blood pressure 120 mm[Hg] Cole Celeste DO Work Phone: [facility] Healthcare Encounters Encounter Date Encounter Type Care Provider Facility Start: 11-26-2024 End: 11-26-2024 Clinisync Result Encounter Cole Celeste DO Work Phone: [facility] External Department Unsolicited Start: 11-26-2024 End: 11-26-2024 Clinisync Result Encounter Cole Celeste DO Work Phone: [facility] External Department Unsolicited Start: 11-22-2024 End: 11-22-2024 Office consultation new/estab patient 60 min Bandar Darden MD Work Phone: [facility] Comment on above: Polyhydramnios affec ting in third trimester (Primary Dx); PCOS (polycystic ovarian syndrome) Start: 11-22-2024 End: 11-22-2024 ambulatory [facility] Start: 11-20-2024 End: 11-20-2024 Office outpatient visit 15 minutes Cole Celeste DO Work Phone: [facility] Comment on above: Third trimester preg maicol; 32 weeks gestation of Start: 11-20-2024 End: 11-20-2024 ambulatory [facility] CELESTE Not Available Start: 11-12-2024 End: 11-12-2024 Clinisync Result Encounter Cole Celeste DO Work Phone: [facility] External Department Unsolicited Start: 11-12-2024 End: 11-12-2024 Clinisync Result Encounter Cole Celeste DO Work Phone: [facility] External Department Unsolicited Start: 11-06-2024 End: 11-06-2024 [...] Available Start: 10-25-2024 ambulatory Radha Gomez Facility: [facility] Start: 10-24-2024 End: 10-24-2024 Clinisync Result Encounter Emily TALBERT Work Phone: [facility] External Department Unsolicited Start: 10-24-2024 End: 10-24-2024 Clinisync Result Encounter Emily TALBERT Work Phone: [facility] External Department Unsolicited Start: 10-24-2024 End: 10-24-2024 ambulatory [facility] Start: 10-22-2024 End: 10-22-2024 Office outpatient visit [...] Start: 10-18-2024 End: 10-18-2024 ambulatory [facility] Start: 10-15-2024 End: 10-15-2024 Chart abstracting Scanning Provider External [facility] Start: 10-08-2024 End: 10-08-2024 Bamboo [...] EMILY LUNDY Not Available Start: 10-06-2024 ambulatory [facility] Facility: [facility] Start: 09-24-2024 ambulatory [facility] Facility: [facility] Start: 09-10-2024 End: 09-10-2024 Clinisync Result [...] Clinisync Result Encounter Emily TALBERT Work Phone: [facility] External Department Unsolicited Start: 08-10-2024 End: 08-10-2024 Clinisync Result Encounter Emily TALBERT Work Phone: [facility] External Department Unsolicited Start: 08-08-2024 End: 08-08-2024 Bamboo flowsheet Cole Celeste DO Work Phone: [facility] Start: 08-08-2024 End: 08-16-2024 Bamboo flowsheet Cole Celeste DO Work Phone: [facility] Start: 08-08-2024 End: 08-16-2024 Clinisync Result Encounter Emily Favian TALBERT Work Phone: [facility] External Department Unsolicited Start: 08-08-2024 End: 08-15-2024 External Result Encounter Emily Lundy NITISH Work Phone: [facility] External Department Unsolicited Start: 08-08-2024 End: 08-08-2024 Office outpatient visit 15 minutes Cole Celeste DO Work Phone: [facility] Comment on above: Well woman exam with routine gynecological exam; Second trimester ; 17 weeks gestation of ; Vaginal discharge; STD exposure; Screening, , for anatomic survey; Elevated glucose tolerance test Start: 08-08-2024 End: 08-08-2024 Patient encounter procedure Cole Celeste DO Work Phone: [facility] Work Phone: Start: 08-08-2024 End: 08-08-2024 ambulatory [...] Available Start: 07-05-2024 End: 07-05-2024 ambulatory Radha Santo Jason Facility:[facility] Start: 07-04-2024 End: 07-04-2024 Clinisync Result Encounter Cole Celeste DO Work Phone: [facility] Unsolicited Start: 07-04-2024 End: 07-04-2024 Clinisync Result Encounter Cole Celeste DO Work Phone: [facility] External Department Unsolicited Start: 06-07-2024 End: 06-07-2024 ambulatory [facility] Celeste Nurse [facility] Comment on above: GA: 8w6d Start: 06-01-2024 End: 06-01-2024 ambulatory Radha Gomez Facility:[facility] Start: 05-28-2024 End: 05-28-2024 Emergency department patient visit Radha Gomez Facility:[facility] Start: 05-28-2024 End: 05-28-2024 ambulatory Radha Gomez Facility:[facility] Start: 05-08-2024 End: 05-08-2024 Bamboo flowsheet [...] encounter procedure Kenya Richter DDS Work Phone: [facility] Oral Surgery Comment on above: Abnormal tooth erupt ion (Primary Dx); Impacted third molar tooth Start: 04-24-2024 ambulatory KENYA RICHTER Facili ty:[facility] Start: 03-14-2024 End: 03-14-2024 ambulatory [facility] Facility:[facility] Start: 02-14-2024 End: 02-14-2024 ambulatory [facility] Facility:[facility] Start: 01-17-2024 End: 01-17-2024 ambulatory [facility] Facility:[facility] Start: 12-16-2023 End: 12-16-2023 ambulatory [facility] Facility:[facility] Start: 10-06-2023 End: 10-06-2023 Office outpatient new 20 minutes Cole Celeste DO Work Phone: [facility] Comment on above: Irregular periods/me nstrual cycles; PCOS (polycystic ovarian syndrome); Insulin resistance Procedures Date Procedure Procedure Detail Performing Clinician Start: 11-26-2024 US OB BPP W NON-STRESS Cole Celeste DO Work Phone: Start: 11-20-2024 Urnls dip stick/tabl et rgnt non-auto w/o micrscp Cole Celeste DO Work Phone: Start: 11-12-2024 US OB BPP W NON-STRESS Cole Celeste DO Work Phone: Start: 11-06-2024 Urnls dip stick/tabl et rgnt non-auto w/o micrscp Emily TALBERT Work Phone: Start: 10-24-2024 ALL CBC WITH AUTO DIFF Emily TALBERT Work Phone: Start: 10-22-2024 Urnls dip stick/tabl et rgnt non-auto w/o micrscp Cole Celeste DO Work Phone: Start: 09-10-2024 [facility] DRUG SCREEN RAPI D (URINE) Cole Celeste DO Work Phone: Start: 08-10-2024 GLUCOSE TOLERANCE 3 HOUR Emily TALBERT Work Phone: Start: 08-08-2024 Urnls dip stick/tabl et rgnt non-auto w/o micrscp Emily TALBERT Work Phone: Start: 08-08-2024 IGP,APTIMA HPV,AGE GDLN Emily TALBERT Work Phone: Start: 08-08-2024 Microscopic observat ion [Identifier] in Cervix by Cyto stain Ahmet Soler MD Work Phone: Start: 08-08-2024 RECURRENT VAGINITIS (HTRX) [...] Urine test visual color cmprsn meths Cole Alonso DO Work Phone: Start: 04-24-2024 panoramic radiograph ic image Pavan Lee DMD, MD Work Phone: Start: 12-26-2019 Cytp cerv/vag auto t hin layer prep mnl screen Deana J Nataprawira DO Work Phone: Plan of Treatment Date Care Activity Detail Author Start: 2048 Shingles (RZV) Vacci ne (1 of 2) Shingles (RZV) Vaccine (1 of 2) [facility] Start: 11-18-2033 DTaP,Tdap and Td Vaccines (9 - Td or Tdap) DTaP,Tdap and Td Vaccines (9 - Td or Tdap) [facility] Start: 08-08-2027 Screening for malign ant neoplasm of cervix Pap Smear [facility] Start: 11-22-2025 Adult BMI Screening Adult BMI Screen ing [facility] Start: 11-22-2025 Tobacco Screening Tobacco Screening [facility] Start: 12-04-2024 End: 12-04-2024 Patient encounter procedure 12/04/2024 8:40 AM EDT Routine [facility] [address] [place] [id number] Emily Lundy PA [address] [place], [place] [phone] [facility] Start: 11-20-2024 End: 11-20-2024 Patient encounter procedure 11/20/2024 8:30 AM EDT Routine [facility] [address] [place] [address] Cole Alonso DO [address] [place], [place] [phone] [facility] Start: 11-06-2024 End: 11-06-2025 [...] unspecified fetus Expected: 10/22/2024 (Approximate), Expires: 10/22/2025 [facility] Work Phone: Comment on above: Expected: 10/22/2024 (Approximate), Expires: 10/22/2025 Start: 10-18-2024 End: 10-18-2024 Patient encounter procedure 10/18/2024 1:00 PM EST Appointment [facility] [place] [address] [address] [place] [address] [facility] [place] Start: 10-08-2024 End: 10-08-2025 CBC panel - Blood by Automated count CBC Lab Routine Diabetes mellitus screening Expected: 10/08/2024 (Approximate), Expires: 10/08/2025 [facility] Work Phone: Comment on above: Expected: 10/08/2024 (Approximate), Expires: 10/08/2025 Start: 10-08-2024 End: 10-08-2025 Measurement of glucose 1 hour after glucose challenge for glucose tolerance test Glucose tolerance, 1 hour Lab Routine Diabetes mellitus screening Expected: 10/08/2024 (Approximate), Expires: 10/08/2025 [facility] Comment on above: Expected: 10/08/2024 (Approximate), Expires: 10/08/2025 Start: 10-08-2024 End: 10-08-2024 Patient encounter procedure [facility] Comment on above: Arrived Start: 09-10-2024 End: 09-10-2025 Drugs of abuse panel - Urine by Screen method Rapid drug screen, urine Lab Routine , unspecified gestational age Encounter for supervision of normal first in first trimester Expected: 09/10/2024 (Approximate), Expires: 09/10/2025 [facility] Work Phone: Comment on above: Expected: 09/10/2024 (Approximate), Expires: 09/10/2025 Start: 09-10-2024 End: 09-10-2024 Patient encounter procedure 09/10/2024 2:00 PM EST Routine [facility] [address] [place] [phone] Cole Alonso, [address] [place] [address] [facility] Start: 09-10-2024 End: 09-10-2024 Professional / ancillary services management 09/10/2024 1:00 PM EST Ancillary Procedure [facility] [address] [place] [phone] [facility] Start: 08-08-2024 End: 02-06-2025 Alpha fetoprotein, maternal Alpha fetoprotein, maternal Lab Routine Second trimester 17 weeks gestation of Expected: 08/08/2024 (Approximate), Expires: 02/06/2025 [facility] Comment on above: Expected: 08/08/2024 (Approximate), [...] procedure 07/04/2024 3:00 PM EDT Office Visit [facility] Oral Surgery [address] [place] [phone] Kenya Richter, DDS [address] [place], [place] [phone] [facility] Start: 06-07-2024 End: 06-07-2025 ABO/Rh ABO/Rh Lab Routine Missed menses , unspecified gestational age Expected: 06/07/2024 (Approximate), Expires: 06/07/2025 [facility] Comment on above: Expected: 06/07/2024 (Approximate), Expires: 06/07/2025 Start: 06-07-2024 End: 06-07-2025 Blood type and Indirect antibody screen panel - Blood Type and screen Lab Routine Missed menses , unspecified gestational age Expected: 06/07/2024 (Approximate), Expires: 06/07/2025 [facility] Work Phone: Comment on above: Expected: 06/07/2024 (Approximate), Expires: 06/07/2025 Start: 06-07-2024 End: 06-07-2025 Drugs of abuse panel - Urine by Screen method Rapid drug screen, urine Lab Routine , unspecified gestational age Encounter for supervision of normal first in first trimester Expected: 06/07/2024 (Approximate), Expires: 06/07/2025 [facility] Comment on above: Expected: 06/07/2024 (Approximate), Expires: 06/07/2025 Start: 06-07-2024 End: 06-07-2025 US Pelvis transvaginal US OB transvaginal Imaging Routine Missed menses Expected: 06/07/2024 (Approximate), Expires: 06/07/2025 [facility] Comment on above: Expected: 06/07/2024 (Approximate), Expires: 06/07/2025 Start: 06-07-2024 End: 06-07-2024 ambulatory 06/07/2024 1:00 PM EDT Initial [facility] [address] [place] [phone] [facility] Start: 06-07-2024 End: 06-07-2024 Professional / ancillary services management 06/07/2024 12:30 PM EDT Ancillary Procedure [facility] [address] [place] [phone] [facility] Start: 06-05-2024 Influenza vaccination Influenza Vacc ine (#1) [facility] Start: 05-08-2024 End: 05-08-2024 Patient encounter procedure 05/08/2024 11:20 AM EDT Office Visit [facility] [address] [place] [phone] Cole Alonso, DO [address] [place] [address] Arrived [facility] Comment on above: Arrived Start: 05-06-2024 Influenza vaccination P [facility] Start: 11-03-2023 End: 11-03-2023 Patient encounter procedure 11/03/2023 8:30 AM EST Office Visit [facility] [address] [place] [phone] Cole Alonso, DO [address] [place] [address] [facility] Start: 10-17-2023 End: 10-17-2023 Professional / ancillary services management 10/17/2023 8:30 AM EST Ancillary Procedure [facility] [address] [place] [phone] [facility] Start: 05-06-2023 COVID-19 Vaccine ( season) COVID-19 Vaccine ( season) [facility] Start: 2019 Screening for malign ant neoplasm of cervix Pap Smear [facility] Start: 2017 DTaP,Tdap and Td Vaccines (1 - Tdap) DTaP,Tdap and Td Vaccines (1 - Tdap) [facility] Start: 2017 Hepatitis A (HAV) Vaccine (optional start 19+ years) Hepatitis A (HAV) Vaccine (optional start 19+ years) [facility] Start: 2017 Hepatitis B vaccination Hepati tis B (HBV) Vaccine (1 of 3 - 19+ 3-dose series) [facility] Start: 2016 Adult BMI Follow Up Plan Adult BMI Follow Up Plan [facility] Start: 2016 Adult BMI Screening Adult BMI Screen ing [facility] Start: 2016 Hepatitis C screening Hepatitis C An tibody [facility] Start: 2016 Tetanus + diphtheria + acellular pertussis vaccine (product) Tdap Booster [facility] Start: 2013 Vaccination for volodymyr n papillomavirus HPV Vaccine (1 - 3-dose series) [facility] Start: 2010 Depression Screening Depression Scre ening [facility] Start: 2010 Tobacco Screening Tobacco Screening [facility] Antimullerian hormon e (AMH) Antimullerian hormone (AMH) Lab Routine Irregular periods/menstrual cycles Ordered: 10/06/2023 [facility] Comment on above: Ordered: 10/06/2023 Bacteria identified in Urine by Culture Urine culture Microbiology Routine Missed menses Ordered: 06/07/2024 [facility] Comment on above: Ordered: 06/07/2024 CBC W Auto Different ial panel - Blood CBC and differential Lab Routine PCOS (polycystic ovarian syndrome) Ordered: 10/06/2023 [facility] Comment on above: Ordered: 10/06/2023 CBC W Auto Different ial panel - Blood CBC and differential Lab Routine Missed menses , unspecified gestational age Ordered: 06/07/2024 [facility] Comment on above: Ordered: 06/07/2024 CHLAMYDIA TRACHOMATI S (GENITO/STI) CHLAMYDIA TRACHOMATIS (GENITO/STI) Lab Routine STD exposure Ordered: 08/08/2024 [facility] Comment on above: Ordered: 08/08/2024 Cytology Cervical or vaginal smear or scraping study Pap Smear Pathology and Cytology Routine Well woman exam with routine gynecological exam Ordered: 08/08/2024 [facility] Comment on above: Ordered: 08/08/2024 DHEA DHEA Lab Routine PCOS (polycystic ovarian syndrome) Ordered: 10/06/2023 [facility] Comment on above: Ordered: 10/06/2023 DHEA-sulfate DHEA-sulfate Lab Routine PCOS (polycystic ovarian syndrome) Ordered: 10/06/2023 [facility] Comment on above: Ordered: 10/06/2023 Follicle stimulating hormone Follicle stimulating hormone Lab Routine PCOS (polycystic ovarian syndrome) Ordered: 10/06/2023 [facility] Comment on above: Ordered: 10/06/2023 hCG, quantitative, hCG, quantitative, Lab Routine PCOS (polycystic ovarian syndrome) Ordered: 10/06/2023 [facility] Work Phone: Comment on above: Ordered: 10/06/2023 Hemoglobin A1c measurement Hemoglobin A1c Lab Routine Irregular periods/menstrual cycles Ordered: 10/06/2023 [facility] Comment on above: Ordered: 10/06/2023 Hemoglobin A1c/Hemoglobin.total in Blood Hemoglobin A1c Lab Routine Missed menses , unspecified gestational age Ordered: 06/07/2024 [facility] Comment on above: Ordered: 06/07/2024 Hepatitis B virus surface Ag [Presence] in Serum or Plasma by Immunoassay Hepatitis B surface antigen Lab Routine Missed menses , unspecified gestational age Ordered: 06/07/2024 [facility] Comment on above: Ordered: 06/07/2024 Hepatitis C virus Ab [Presence] in Serum or Plasma by Immunoassay Hepatitis C antibody Lab Routine Missed menses , unspecified gestational age Ordered: 06/07/2024 [facility] Comment on above: Ordered: 06/07/2024 HIV-1/HIV-2 antigen/antibody combination immunoassay HIV-1 and HIV-2 antibodies Lab Routine Missed menses , unspecified gestational age Ordered: 06/07/2024 [facility] Comment on above: Ordered: 06/07/2024 Luteinizing hormone Luteinizing hormone Lab Routine PCOS (polycystic ovarian syndrome) Ordered: 10/06/2023 [facility] Comment on above: Ordered: 10/06/2023 Neisseria gonorrhoea e DNA [Presence] in Unspecified specimen by ISHA with probe detection Neisseria gonorrhea DNA probe, direct Lab Routine STD exposure Ordered: 08/08/2024 [facility] Comment on above: Ordered: 08/08/2024 Reagin Ab [Presence] in Serum by RPR RPR Lab Routine Missed menses , unspecified gestational age Ordered: 06/07/2024 [facility] Comment on above: Ordered: 06/07/2024 Rubella antibody, IgG Rubella an tibody, IgG Lab Routine Missed menses , unspecified gestational age Ordered: 06/07/2024 [facility] Comment on above: Ordered: 06/07/2024 SURESWAB(R) ADVANCED VAGINITIS PLUS, TMA SURESWAB(R) ADVANCED VAGINITIS PLUS, TMA Pathology and Cytology Routine Vaginal discharge Ordered: 08/08/2024 [facility] Work Phone: Comment on above: Ordered: 08/08/2024 Thyrotropin [Units/volume] in Serum or Plasma TSH Lab Routine PCOS (polycystic ovarian syndrome) Ordered: 10/06/2023 [facility] Comment on above: Ordered: 10/06/2023 Thyroxine (T4) free [Mass/volume] in Serum or Plasma T4, free Lab Routine PCOS (polycystic ovarian syndrome) Ordered: 10/06/2023 [facility] Comment on above: Ordered: 10/06/2023 US for US PELVIS-TRANS VAG IF INDICATED Imaging Routine PCOS (polycystic ovarian syndrome) Ordered: 10/06/2023 [facility] Comment on above: Ordered: 10/06/2023 Immunizations Immunization Date Immunization Notes Care Provider Shaina marley 06-12-2020 influenza virus vacc ine, unspecified formulation Cole Alonso DO Work Phone: [facility] Payers Date Payer Category Payer [employer]ity [employer] [id number] 2022 Medicaid [id number] 2022 Medicaid [id number] 1998 Unknown [id number] 2.16.840.1.784534.3.579.2. 732 1998 Unknown [id number] 2.16.840.1.298527.3.579.2. 1258 1998 Unknown [id number] 2.16.840.1.654810.3.579.2. 9 1998 Unknown [id number] 2.16.840.1.264663.3.579.2. 9 1998 Unknown [id number] 2.16.840.1.043669.3.579.2. 9 1998 Unknown [id number] 2.16.840.1.765487.3.579.2. 1258 1998 Unknown [id number] 2.16.840.1.332488.3.579.2. 1258 1998 Unknown [id number] 2.16.840.1.980160.3.579.2. 1258 1998 Unknown [id number] 2.16.840.1.874478.3.579.2. 1258 1998 Unknown [id number] 2.16.840.1.733953.3.579.2. 1258 1998 Unknown [id number] 2.16.840.1.270759.3.579.2. 1258 1998 Unknown [id number] 2.16.840.1.797260.3.579.2. 1285 1998 Unknown [id number] 2.16.840.1.538775.3.579.2. 1285 1998 Unknown [id number] 2.16.840.1.555180.3.579.2. 1285 1998 Unknown [id number] 2.16.840.1.110866.3.579.2. 1998 Unknown [id number] 2.16.840.1.641341.3.579.2. 1998 Unknown [id number] 2.16.840.1.571122.3.579.2. 1998 Unknown [id number] 2.16.840.1.861093.3.579.2. 1998 Unknown [id number] 2.16.840.1.737732.3.579.2. 1998 Unknown [id number] 2.16.840.1.719900.3.579.2. 1998 Unknown [id number] 2.16.840.1.064177.3.579.2. 1998 Unknown [id number] 2.16.840.1.174071.3.579.2. 718 1998 Unknown [id number] 2.16.840.1.308174.3.579.2. 718 1998 Unknown [id number] 2.16.840.1.882941.3.579.2. 718 1998 Unknown [id number] 2.16.840.1.477956.3.579.2. 718 Social History Date Type Detail Facility Start: 09-15-2023 End: 05-08-2024 Tobacco smoking status [facility] Ex-smoker [facility] History of tobacco use Current smoker [facility] History of tobacco use Cigarette Smoker [facility] Start: 10-06-2023 End: 11-06-2024 Alcohol intake Lifetime non-drinker (finding) [facility] Start: 09-15-2023 End: 05-08-2024 History of Social function [facility] Start: 09-15-2023 End: 05-08-2024 Tobacco use panel [facility] Start: 09-15-2023 Alcohol Comment caffeine: 1-2 cups per day [facility] Start: 2000 Sex Assigned At Not on file [facility] Tobacco smoking stat [facility] Tobacco smoking consumption unknown [facility] Start: 05-08-2024 End: 10-15-2024 Tobacco use and exposure Smokeless tobacco non-user [facility] Start: 04-20-2024 [facility] hcare Start: 10-15-2024 End: 11-22-2024 Alcoholic beverage intake Ex-drinker (finding) [facility] Childcare Unknown [facility] Start: 12-03-2019 Sex Female (finding) [facility] Medical Equipment Procedure Code Equipment Code Equipment Origin al Text Equipment Identifier Dates Check blood gluc ose using test strips fasting and 1 hour after each meal. Four to 5 times a day per insurance preferences [id number] Start: 11-22-2024 Use it to check fingerstick blood glucose 4 times a day fasting and 1 hour after each meal. Dispensed per insurance preference [id number] Start: 11-22-2024 Clinical Notes 10-06-2023 to 11-22-2024 Nieves Aranda CMA - 11/22/2024 11:30 AM Volodymyr Soler MD - 11/22/2024 11:30 AM Lakeshia Xavier LPN - 11/20/2024 8:30 AM NITISH Negrete - 11/06/2024 8:50 AM EST Note Date & Type Note Facility 11-22-2024 History of Present illness Narrative Headache/epigastric pain/blurry vision/swelling? No Cramping/contractions? No Abnormal vaginal discharge? No Spotting/vaginal bleeding? No Loss or gush of fluid like your water may have broken? No Do you have cats at home? Yes Do you change the litter box (reason: risk of toxoplasmosis)? Sometimes Genetic testing done this here or other office? no Have you been seen here at [facility] in a previous ? No Recent ER visits or hospitalizations? No Bring blood sugar log or meter with you today? (Please bring them with you for every visit at [facility]) no Flu vaccine (Jul-November)? No Any concerns that you would like me to mention to the provider today? No REASON FOR TELEMEDICINE VIDEO CONSULTATION: Large for gestational age fetus with polyhydramnios HISTORY OF PRESENT ILLNESS: Sherly Astudillo is a pleasant 24 y.o. G 2 P1 001. at 32w6d due on Estimated Date of Delivery: 01/11/25 . Patient was seen today due to the following 1. Large for gestational age fetus with fetus measuring more than 99th percentile along with polyhydramnios highly suggestive of uncontrolled gestational diabetes. Patient states she failed her diabetes testing once but passed it on the second time. 2. Maternal increased BMI of 45. 3. PCOS and the patient was taking metformin outside . Currently the patient has no complaints. The patient denies nausea, vomiting, abdominal pain, vaginal bleeding, SOB or chest pain. Patient's PMH/PSH,SH,PSYCH Hx, MEDs, ALLERGIES, and ROS were all reviewed and updated in the appropriate sections. Patient Active Problem List Diagnosis PCOS (polycystic ovarian syndrome) Polyhydramnios affecting in third trimester Past Medical History: Diagnosis Date Ankle fracture, left PCOS (polycystic ovarian syndrome) PAST OBSTETRICAL HISTORY: OB History 2 Para 1 Term 1 AB Living 1 SAB IAB Ectopic Multiple Live Births 1 SURGICAL HISTORY: Past Surgical History: Procedure Laterality Date CHOLECYSTECTOMY 09/16/2020 ALLERGIES: No Known Allergies CURRENT MEDICATIONS: Current Outpatient Medications: aspirin 81 mg chewable tablet, Chew 1 tablet (81 mg total) and swallow in the morning., Disp: , Rfl: magnesium oxide (MAGOX) 400 mg tablet, Take 1 tablet (400 mg total) by mouth in the morning., Disp: , Rfl: ondansetron (ZOFRAN) 4 mg tablet, Take 1 tablet (4 mg total) by mouth every 6 (six) hours as needed for nausea or vomiting., Disp: , Rfl: blood sugar diagnostic (glucose blood) strip, Check blood glucose using test strips fasting and 1 hour after each meal. Four to 5 times a day per insurance preferences, Disp: 100 strip, Rfl: 2 blood-glucose meter misc, Check blood glucose using meter. Dispense per insurance preference, Disp: 1 each, Rfl: 0 clotrimazole (MYCELEX) 10 mg jacob, Dissolve 1 tablet (10 mg total) in the mouth 5 (five) times a day. (Patient not taking: Reported on 11/22/2024), Disp: , Rfl: lancets 30 gauge misc, Use it to check fingerstick blood glucose 4 times a day fasting and 1 hour after each meal. Dispensed per insurance preference, Disp: 100 each, Rfl: 1 metFORMIN (GLUCOPHAGE) 500 mg tablet, Take 1 tablet (500 mg total) by mouth daily with dinner. (Patient not taking: Reported on 11/22/2024), Disp: , Rfl: FAMILY/GENETIC HISTORY: No family history of VTE, cardiac defects and mental retardation . RECENT HOSPITALIZATION: none I did review all the labs results available in addition to labs which were ordered by the primary care physician, and the other consultants, we search on [employer] and all the available care everywhere epic I did review all the imaging studies of the patient available on EMR, ordered by the primary care physician and the other distributor sales consultant HABITS: Patient activity no restrictions, diet no restrictions REVIEW OF SYSTEM: Head and Neck: Negative for any dizziness and headaches. Cardiovascular and Respiratory System: Denies any chest pain, shortness of breath, and coughing. Abdominal and System: Denies any abdominal pain, nausea, vomiting, vaginal bleeding, and vaginal discharge PHYSICAL EXAMINATION: BP 115/80 Pulse 90 Ht 170.2 cm (5' 7 ) Wt 130.6 kg (288 lb) LMP 04/06/2024 BMI 45.11 kg/m . Gravid abdomen, Respirations not labored. Well oriented time place person, normal gait RECOMMENDATION: 1. Finding highly suspicious for gestational diabetes. 2. Patient requested to start checking fasting and 1 hour blood glucose. 3. Blood glucose meter test strips and lancets were called in. 4. InCase blood glucose fasting or postprandial are high, please refer the patient back to [facility] for formal diabetes management 5. Continue serial growth ultrasounds every 4 weeks at her OB office. 6. Patient is a candidate for testing in the form once a week NST and JET based on BMI and polyhydramnios criteria 7. Continue testing form once a week NST and JET at 32 weeks gestation until delivery. 8. Delivery at 39 weeks gestation based on large for gestational age fetus along with polyhydramnios criteria. DISPOSITION: At this point the patient is in complete care of her endoscopy technican. Patient does not have appointment scheduled with us. Thank you for allowing me to participate in Sherly Astudillo . If there any questions please do not hesitate to contact us. Sincerely, AHMET SOLER MD Video Visit via Real-time Synchronous Audiovisual Provider Location: [facility]- [facility]ICINE AT [address] [phone] Patient Location: Other Patient Location Body Maker: None Video Visit Consent Statement: I discussed risks, benefits, and alternatives of a real-time synchronous audiovisual consultation with the patient (and any accompanying persons) including the risks that the patient's personal health details and medical records will be discussed over real-time, synchronous, interactive video/audio/telecommunication technology, the visit will not be recorded without the express consent of both the provider and the patient, and that there are some limitations compared to shnr-bk-cubz evaluations. We elected to proceed. documented in this encounter [facility] 11-20-2024 History of Present illness Narrative Reason for Appointment: Patient ID: Sherly Astudillo is a 24 y.o. female who presents for Routine Visit Patient presents today for Return OB appointment. MEDICATIONS Current Outpatient Medications Medication Instructions aspirin 81 mg, Oral, Daily RT magnesium oxide (MAG-OX) 400 mg, 2 times daily ondansetron (ZOFRAN) 4 mg, Oral, Every 6 hours PRN MV & Min w/FA-DHA ( GUMMIES PO) Oral ALLERGIES No Known Allergies PROBLEMS Active Ambulatory [...] nursing note reviewed. Exam conducted with a nuclear logging engineer present. Vitals: Estimated body mass index is 44.64 kg/m as calculated from the following: Height as of 05/08/24: 5' 7 . Weight as of this encounter: 285 lb. BP: 136/90 Patient's last menstrual period was 04/06/2024. ASSESSMENT & PLAN ICD-10-CM 1. Third trimester Z34.93 2. 32 weeks gestation of Z3A.32 Return OB: Patient presents today for a routine obstetrics appointment. Patient is currently 32w4d . Patient states she is doing well but has complaints of being tired due to current . Patient has verbalizes frequent movement. labor precautions was discussed/given and patient was instructed to perform kick counts three times a day. Pt return to [facility] on the for follow up anatomy scan. Pt second BP in office was 118/86. No orders of the defined types were placed in this encounter. Follow Up: Patient is to return to office in 2 week for routine OB appointment. Documented by Bailey Xavier LPN on behalf of: Cole Alonso DO documented in this encounter [facility] 11-06-2024 History of Present illness Narrative Reason [...] of: NITISH Rojas documented in this encounter [facility] 10-24-2024 Note [facility] Note Reason for cardiology [...] mouth in the morning., Disp: , Rfl: 8-NOXV-PAOHW ACID-OM3 ORAL, Take by mouth., Disp: , [...] 4 to 6 weeks Angel Luis Evans MD,[facility] 10-22-2024 History of Present illness Narrative Reason [...] nursing note reviewed. Exam conducted with a nuclear logging engineer present. Vitals: Estimated body mass index is [...] NST/BPP to have started. Orders sent to [facility] Scheduling and [facility] Hospital to reach out to patient to schedule. Patient to return to clinic in 2 weeks for routine OIB appointment. Documented by Rose Latham LPN on behalf of: Cole Alonso DO documented in this encounter [facility] 10-08-2024 History of Present illness Narrative Reason for Appointment: Patient ID: Sherly Astudillo is a 24 y.o. female who presents for Routine Visit Patient presents today for Return OB appointment. MEDICATIONS Current Outpatient Medications Medication Instructions clotrimazole (Mycelex) 10 MG jacob 1 lozenge(s), Oral, 5x/Day, x 10 day(s), # 50 lozenge(s), 0 Refill(s), 10/16/24 8:59:00 AM RIDE ASSEMBLY SUPERVISOR, Pharmacy: [facility] [id number], 1 lozenge(s) Oral 5x/Day,x10 day(s), 170.18, cm, [...] of: NITISH Rojas documented in this encounter [facility] 10-06-2024 Note Patient Education Ma terials [...] Follow these instructions at home: ? Take ckbo-vdz-adbiqfx and prescription medicines only as told by [...] provider. Document Revised: 11/30/2021 Document Reviewed: 11/30/2021 [employer] Patient Education ? 2023 [employer] Infectious Disease Oral Thrush, Adult Oral [...] difficulty fighting infection (more content not included)... [facility] 09-24-2024 Note Patient Education Ma terials [...] these instructions at home: Medicines ? Take uwty-pvi-jgyqukg and prescription medicines only as told by [...] and water are not available, use hand chaperon. ? Do not touch your eyes, nose, [...] may represent a (more content not included)... [facility] 09-10-2024 History of Present illness Narrative [...] nursing note reviewed. Exam conducted with a nuclear logging engineer present. Vitals: Estimated body mass index is [...] Cole Alonso DO documented in this encounter [facility] 08-08-2024 History of Present illness Narrative Reason [...] Cole Alonso DO documented in this encounter [facility] 07-10-2024 History of Present illness Narrative Reason [...] nursing note reviewed. Exam conducted with a nuclear logging engineer present. Vitals: Estimated body mass index is [...] or undercooked meat, and stay away from [facility]. Patient has been consulted regarding any [...] Cole Alonso DO documented in this encounter [facility] 07-05-2024 Note Patient Education Ma terials [...] and use condoms. General instructions ? Take mgkc-aqv-yhbnwjp and prescription medicines only as told by [...] provider. Document Revised: 02/19/2021 Document Reviewed: 02/19/2021 [employer] Patient Education ? 2023 [employer] [facility] 06-07-2024 History of Present illness Narrative [...] both done at the same time at [facility] at 10 weeks . Pt desires zofran due to nausea in this . Follow Up: Patient is to have labs drawn at directed and return to office for initial OB appointment with provider. Patient may call office as needed with any concerns or questions. Nurse Visit Completed by: Bernadette Reeder MA documented in this encounter [facility] 05-28-2024 Note Education Materials Orthopedics Muscle [...] not too tight. General instructions ? Take lkvj-aqe-cmmfrkw and prescription medicines only as told by [...] provider. Document Revised: 11/09/2021 Document Reviewed: 11/09/2021 [employer] Patient Education ? 2023 [employer] Sciatica Sciatica is pain, weakness, tingling, [...] (pelvis). ? . (more content not included)... [facility] 05-28-2024 Note Patient Education Ma terials Follows: [facility] 05-08-2024 History of Present illness Narrative [...] Name Age of Onset Leukemia Mother Magnolia Jacskon as a child Endometriosis Mother Magnolia Renetta [...] Cole Alonso DO documented in this encounter [facility] 04-24-2024 History of Present illness Narrative Images from the original note were not included. documented in this encounter [facility] 10-06-2023 History of Present illness Narrative [...] nursing note reviewed. Exam conducted with a nuclear logging engineer present. Vitals: Estimated body mass index is [...] PCOS/insulin resistance and medication was sent to [facility] in [place]. Documented by Rose Latham LPN on behalf [...] in this encounter [facility] Diagnosis Polyhydramnios affecting in third trimester- Primary PCOS (polycystic ovarian syndrome) Polycystic ovaries documented in this encounter [facility] Diagnosis Third trimester state, incidental 32 weeks gestation of documented in this encounter [facility] HealthcareInstructionsNot on filedocumented in this encounterPro[facility] SystemInstructionsNot on filedocumented in this encounterProUniversity [facility] System Summary Purpose Family History [...] Referral Specialty Diagnoses / Procedures Referred By Contac t Referred To Contact Oral Surgery Diagnoses Abnormal tooth eruption Impacted third molar tooth Kenya Richter, DDS [address] [place] [id number] Referral ID Status Reason Start Date Expiration Date V isits Requested Visits Authorized [id number] Pending Review 04/24/2024 04/24/2025 1 1 Scheduling [...] your procedure, you will be contacted with [id number] costs or next steps. All self-pay payments [...] the procedure: You also MUST have a parts driver/escort >18yrs old present to take you [...] section and content) DATE CREATED AUTHOR 01/08/[address] [facility] DATE CREATED AUTHOR AUTHOR'S ORGANIZ ATION 09/23/2024 [facility] DATE CREATED AUTHOR AUTHOR'S ORGANIZ ATION 11/08/2024 [facility] DATE CREATED AUTHOR AUTHOR'S ORGANIZ ATION 11/22/2024 [facility] DATE CREATED AUTHOR AUTHOR'S ORGANIZ ATION 11/24/2024 [facility] DATE CREATED AUTHOR AUTHOR'S ORGANIZ ATION 11/24/2024 [facility] DATE CREATED AUTHOR AUTHOR'S ORGANIZ ATION 11/28/2024 [facility] l Reason for Visit (unrecogniz ed section and content) Reason Comments Discuss cycles Reason Comments Amenorrhea Reason Comments Routine Visit Reason Comments Well Women Visit Routine Visit STI Screening Reason Comments Abdominal Pain Reason Comments polyhydramnios Care Teams (unrecognized sec tion and content) Continuous Improvement Coach Relationship Specialty Start Date End Date Radha Gomez MD [address] [place] [phone] PCP - General Pediatrics 10/06/23 Continuous Improvement Coach Relationship Specialty Start Date End Date Radha Gomez MD [address] [place] [address] [id number] PCP - General Pediatrics 10/06/23 Continuous Improvement Coach Relationship Specialty Start Date End Date Radha Gomez MD [address] [place] [address] [phone] PCP - General Pediatrics 10/06/23 Continuous Improvement Coach Relationship Specialty Start Date End Date Radha Gomez MD [address] [place] [address] [phone] PCP - General Pediatrics 10/06/23 Continuous Improvement Coach Relationship Specialty Start Date End Date Radha Gomez MD [address] [place] [address] [phone] PCP - General Pediatrics 10/06/23 Continuous Improvement Coach Relationship Specialty Start Date End Date Radha Gomez MD [address] [place] [address] [phone] PCP - General Pediatrics 10/06/23 Continuous Improvement Coach Relationship Specialty Start Date End Date Radha Gomez MD [address] [place] [address] [phone] PCP - General Pediatrics 10/06/23 Continuous Improvement Coach Relationship Specialty Start Date End Date Radha Gomez MD [address] [place] [address] [phone] PCP - General Pediatrics 10/06/23 Continuous Improvement Coach Relationship Specialty Start Date End Date Radha Gomez MD [address] [place] [address] [phone] PCP - General Pediatrics 10/06/23 Continuous Improvement Coach Relationship Specialty Start Date End Date Radha Gomez MD [address] [place] [address] [phone] PCP - General Pediatrics 10/06/23 Continuous Improvement Coach Relationship Specialty Start Date End Date Radha Gomez MD [address] [place] [address] [phone] PCP - General Pediatrics 10/06/23 Continuous Improvement Coach Relationship Specialty Start Date End Date Radha Gomez MD [address] [place] [address] [phone] PCP - General Pediatrics 10/06/23 Continuous Improvement Coach Relationship Specialty Start Date End Date Radha Gomez MD [address] [place] [address] [phone] PCP - General Pediatrics 10/06/23 Continuous Improvement Coach Relationship Specialty Start Date End Date Radha Gomez MD [address] [place] [address] [phone] PCP - General Pediatrics 10/06/23 FOR RECORDS [...] BE BASED ON THE PRIMARY CLINICAL RECORDS. [facility] [employer] [facility]. provides no warranty or guarantee of the accuracy or completeness of information in this document.
== END 2024-12-03 12:51 | disposition home or self-care (01) ==
LOC: US 11:38 → FBC 11:40
PROVIDERS: PCP Family Medicine; Visit Provider Obstetrics & Gynecology
DX: O36.63X0 Maternal care for excessive fetal growth, third trimester, not applicable or unspecified (principal)
CPT/HCPCS: 76818

== ENCOUNTER 2024-12-06 09:58 | Outpatient (OUT) | payer MEDICAID, SELFPAY ==
[2024-12-06 10:27] VITALS: BP 124/74; PULSE 114
== END 2024-12-06 10:30 | disposition home or self-care (01) ==
LOC: FBCO 09:58 → FBC 09:59
PROVIDERS: PCP Family Medicine; Visit Provider Obstetrics & Gynecology
DX: O36.63X0 Maternal care for excessive fetal growth, third trimester, not applicable or unspecified (principal); Z3A.34 34 weeks gestation of pregnancy
CPT/HCPCS: 59025

== ENCOUNTER 2024-12-10 10:58 | Outpatient (OUT) | payer MEDICAID, SELFPAY ==
--- NOTE | 2024-12-10 10:53 | US_ITS ---
[address] [address] Patient Name: SHERLY ERICKSON MRN: [id number] date: 2000 Sex: F Assigned Patient Location: US Current Patient Location: Accession/Order Number: [id number] Exam Date: 12/10/2024 13:07 Report Date: 12/10/2024 13:08 At the request of: JACKIE FOREMAN DO Procedure: US OB BPP w non-stress Biophysical profile. Reason for exam: Excessive growth. COMPARISON: BPP 11/19/2024. TECHNIQUE: Transabdominal imaging of the gravid uterus was obtained. FINDINGS: Twister Doffer reports a BPP of 8 out of 8. Abnormal JET of 29.8 cm. heart rate 131 bpm. US/US OB BPP w non-stress IMPRESSION: BPP 8 out of 8. Polyhydramnios. Impression dictated by: Alexy Sparks Jr., D.O.12/10/2024 1:08 PM Dictation Location: [place] [address] Electronically authenticated by: [id number] Y Date: 12/10/2024 13:08
[2024-12-10 11:07] VITALS: BP 140/75; PULSE 92
--- OUTSIDE RECORDS SUMMARY | 2024-12-10 11:21 | XMS_ITS | CCD ---
Author Organization [facility] Care Team Providers Care Seismograph Shooter Name Role Phone Radha Gomez MD Primary Care Provider [phone] Unavailable Primary Care Provider UnavailKENYA Gonzales Attending Unavailable PROVIDER, UNKNOWN Admitting Unavailable Unavailable Primary Care Provider Unavailbety e CELESTE, COLE R Referring Unavailable CELESTE, COLE R Referring Unavailable CELESTE, COLE R Referring Unavailable AHMET SOLER Attending Unavailable ANGEL LUIS EVANS Attending Unavailable ANGEL LUIS EVANS Attending Unavailable EMILY LUNDY Attending Unavailable CELESTE, COLE Attending Unavailable CELESTE, COLE Attending Unavailable FAVIAN, EMILY Attending Unavailable CELESTE, COLE Attending Unavailable FAVIAN, EMILY Attending Unavailable CELESTE, COLE Attending Unavailable CELESTE, COLE Attending Unavailable CELESTE, COLE Attending Unavailable Radha Gomez Primary Care Unavailable Jonatan Evonne L Admitting Unavailable Cheung Evonne L Attending Unavailable Radha Gomez Primary [...] Care Unavailable Radha Gomez Primary Care Unavailable Radha Gomez Attending Unavailable Radha Gomez Primary Care Unavailable CELESTE, COLE R Admitting Unavailable CELESTE, COLE R Attending Unavailable Radha Gomez Primary Care Unavailable CELESTE, COLE R Admitting Unavailable CELESTE, COLE R Attending Unavailable Radha Gomez Primary Care Unavailable COLE ALONSO Admitting Unavailable COLE ALONSO Attending Unavailable Radha Gomez Primary Care Unavailable COLE ALONSO Admitting Unavailable COLE ALONSO Attending Unavailable Allergies Allergy Classification Reported Allergen(s) Allergy Type Date of Onset Reaction(s) Facility (1 source) No Known Medication Allergies; Translations: [No Known Medication Allergies] Propensity to adverse reactions to drug (disorder) [facility] Repository Medications Current Medications Medication Drug Class(es) [...] aspirin 81 mg delayed release oral tablet (10 sources) Platelet Aggregation Inhibitor, Nonsteroidal Anti-inflammatory Drug [...] per insurance preference 1 each 11/22/2024 Active insulin isophane, human 100 unt/ml injectable suspension (2 sources) Start: 12-04-2024 End: 01-03-2025 inject 5 [IU] by subcutaneous injection in the morning insulin NPH, Isophane, (HumuLIN N,NovoLIN N) 100 UNIT/ML injection Indications: Gestational Diabetes Inject 5 Units under the skin in the morning and 5 Units in the evening. Inject before meals. 3 mL 12/04/2024 01/03/2025 Active insulin isophane, human 70 unt/ml / insulin, regular, human 30 unt/ml injectable suspension (2 sources) Insulin Start: 12-04-2024 End: 01-03-2025 inject 5 [IU] by subcutaneous injection in the morning insulin NPH-insulin regular (NovoLIN) (70-30) 100 UNIT/ML injection Indications: Gestational Diabetes Inject 5 Units under the skin in the morning and 5 Units in the evening. Inject before meals. 3 mL 12/04/2024 01/03/2025 Active magnesium oxide 400 mg oral tablet (7 sources) Start: 11-07-2024 End: 11-07-2025 take 1 tablet by mouth in the morning magnesium oxide (Mag-Ox) 400 MG tablet Take 400 mg by mouth in the morning and 400 mg in the evening. 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, Pharmacy: [facility] [id number], 1 lozenge(s) Oral 5x/Day,x10 day(s), 170.18, cm, [...] test; Translations: [Other abnormal glucose] 08-08-2024 Episodic Diabetes or abnormal glucose tolerance complicating ; childbirth; or the puerperium (6 sources) Gestational diabetes mellitus; Translations: [Gestational diabetes mellitus complicating ] 12-04-2024 Episodic Disorders of lipid metabolism (2 sources) Hyperlipidemia; Translations: [Hyperlipidemia] Onset: 12-03-2024 Chronic Essential hypertension (2 sources) Hypertensive disorder; Translations: [Hypertension] Onset: 12-03-2024 Chronic Immunizations and screening for infectious disease (2 [...] 10-06-2023 Chronic Other and delivery including normal (20 sources) ; Translations: [Encounter for supervision of [...] [32 weeks gestation of ] 11-20-2024 Episodic Residual codes; unclassified (2 sources) Gestation period, 34 weeks; Translations: [34 weeks gestation of ] 12-04-2024 Episodic Past or Other Problems Problem Classification Problem Date Documented Da te Episodic/Chronic Administrative/social admission (20 sources) Patient encounter status; Translations: [Person consulting for explanation of examination or test findings] Onset: 11-03-2023 11-03-2023 Episodic Disorders of teeth and jaw (4 sources) Tooth eruption disorder; Translations: [Disturbances in tooth eruption] Onset: 04-24-2024 04-24-2024 Episodic Results Test Name Value Interpretation Reference Range Facility Outside Recordson 12-05-2024 Outside Records [id number] [facility] [id number]#1.00O [facility] OB BPP W NON-STRESS on 12-03-2024 [place] [address] Ultrasound Report Signed Patient: SHERLY ASTUDILLO MR#: [id number] : 2000 Acct:[id number] Age/Sex: 24 / F ADM Date: 12/03/24 Loc: US Attending Dr: Cole Alonso D.O. Ordering Physician: Cole Alonso D.O. Date of Service: 12/03/24 Procedure(s): US OB BPP w non-stress Accession Number(s): [id number] cc: RADHA GOMEZ ; Cole Alonso D.O. The [address] [address] Patient Name: SHERLY ASTUDILLO MRN: [facility]:[id number] date: 2000 Sex: F Assigned Patient Location: [facility] Current Patient Location: Accession/Order Number: [id number] Exam Date: 12/03/2024 14:34 Report Date: 12/03/2024 14:36 At the request of: COLE ALONSO DO Procedure: US OB BPP w non-stress Ultrasound obstetrical biophysical profile HISTORY: Excessive growth. There is adequate breathing movement, gross body movement, tone and amniotic fluid volume for total score of 8 out of 8. The amniotic fluid index is 24.9 cm. heart rate is 124 bpm. US/US OB BPP w non-stress IMPRESSION: Adequate biophysical profile with ultrasound. Amniotic fluid index 24.9 cm. Impression dictated by: Robert Hui M.D.12/03/2024 2:36 PM Dictation Location: [place] [address] Electronically authenticated by: [id number] Y Date: 12/03/2024 14:36 Dictated By: Robert Hui D.O. Signed By: 12/03/24 1438 DD/ 1436 TD/TT: Carbon Dioxide Operator: [facility] Radiology Radiologparam rangel MD - 12/03/[address] [address] Ultrasound Report Signed Patient: SHERLY ASTUDILLO MR#: [id number] : 2000 Acct:[id number] Age/Sex: 24 / F ADM Date: 12/03/24 Loc: US Attending Dr: Cole Alonso D.O. Ordering Physician: Cole Alonso D.O. Date of Service: 12/03/24 Procedure(s): US OB BPP w non-stress Accession Number(s): [id number] cc: RADHA GOMEZ ; Cole Alonso D.O. The [place] [id number] Patient Name: SHERLY ASTUDILLO MRN: [id number] date: 2000 Sex: F Assigned Patient Location: [facility] Current Patient Location: Accession/Order Number: [id number] Exam Date: 12/03/2024 14:34 Report Date: 12/03/2024 14:36 At the request of: COLE ALONSO DO Procedure: US OB BPP w non-stress Ultrasound obstetrical biophysical profile HISTORY: Excessive growth. There is adequate breathing movement, gross body movement, tone and amniotic fluid volume for total score of 8 out of 8. The amniotic fluid index is 24.9 cm. heart rate is 124 bpm. US/US OB BPP w non-stress IMPRESSION: Adequate biophysical profile with ultrasound. Amniotic fluid index 24.9 cm. Impression dictated by: Robert Hui M.D.12/03/2024 2:36 PM Dictation Location: [place] [address] Electronically authenticated by: [id number] Y Date: 12/03/2024 14:36 Dictated By: Robert Hui D.O. Signed By: 12/03/24 1438 DD/ 35 TD/TT: Carbon Dioxide Operator: [facility] Radiology Study observation (narrative) [facility] US OB BPP W NON-STRESS Ordered By: Radiologist Radiology on 12-03-2024 [facility] Work Phone: [facility] 11-27-2024 Outside Records [id number]#1.00O [facility] US OB BPP W NON-STRESS on 11-26-[address] [address] Ultrasound Report Signed Patient: SHERLY ASTUDILLO MR#: [id number] : 2000 Acct:[id number] Age/Sex: 24 / F ADM Date: 11/26/24 Loc: US Attending Dr: Cole Alonso D.O. Ordering Physician: Cole Alonso D.O. Date of Service: 11/26/24 Procedure(s): US OB BPP w non-stress Accession Number(s): [id number] cc: RADHA GOMEZ ; Cole Alonso D.O. The [place] [id number] Patient Name: SHERLY ASTUDILLO MRN: [facility]:[id number] date: 2000 Sex: F Assigned Patient Location: US Current Patient Location: Accession/Order Number: [id number] Exam Date: 11/26/2024 14:21 Report Date: 11/26/2024 14:21 At the request of: COLE ALONSO DO Procedure: US OB BPP w non-stress Biophysical profile. Reason for exam: Excessive growth. COMPARISON: BPP 11/19/2024. TECHNIQUE: Transabdominal imaging of the gravid uterus was obtained. FINDINGS: [employer] reports a BPP of 8 out of 8. Normal JET of 22.6 cm. heart rate 146 bpm. US/US OB BPP w non-stress IMPRESSION: BPP 8 out of 8. Impression dictated by: Alexy Sparks Jr., D.O.11/26/2024 2:21 PM Dictation Location: [place] [address] Electronically authenticated by: [id number] Y Date: 11/26/2024 14:21 Dictated By: Alexy Sparks M.D. Signed By: 11/26/24 1424 DD/ 1421 TD/TT: Carbon Dioxide Operator: [facility] April Looney MD - 11/26/2024 [place] [address] Ultrasound Report Signed Patient: SHERLY ASTUDILLO MR#: [id number] : 2000 Acct:[id number] Age/Sex: 24 / F ADM Date: 11/26/24 Loc: US Attending Dr: Cole Alonso D.O. Ordering Physician: Cole Alonso D.O. Date of Service: 11/26/24 Procedure(s): US OB BPP w non-stress Accession Number(s): [id number] cc: RADHA GOMEZ ; Cole Alonso D.O. [place] [address] Patient Name: SHERLY ASTUDILLO MRN: [id number] date: 2000 Sex: F Assigned Patient Location: US Current Patient Location: Accession/Order Number: [id number] Exam Date: 11/26/2024 14:21 Report Date: 11/26/2024 14:21 At the request of: COLE ALONSO DO Procedure: US OB BPP w non-stress Biophysical profile. Reason for exam: Excessive growth. COMPARISON: BPP 11/19/2024. TECHNIQUE: Transabdominal imaging of the gravid uterus was obtained. FINDINGS: [employer] reports a BPP of 8 out of 8. Normal JET of 22.6 cm. heart rate 146 bpm. US/US OB BPP w non-stress IMPRESSION: BPP 8 out of 8. Impression dictated by: Alexy Sparks Jr., D.O.11/26/2024 2:21 PM Dictation Location: [place] [address] Electronically authenticated by: [id number] Y Date: 11/26/2024 14:21 Dictated By: Alexy Sparks M.D. Signed By: 11/26/24 1424 DD/ 1421 TD/TT: Carbon Dioxide Operator: [facility] Radiology Study observation (narrative) [facility] US OB BPP W NON-STRESS Ordered By: Radiologist Radiology on 11-26-2024 [facility] Work Phone: Legal Documentson 11-20-2024 Legal Documents [id number]#1.00O TGTIFF [facility] Urinalysis macro (dipstick) panel (U)on 11-20-2024 Bilirubin, UA Negative Negative - 4(70) +++ mg/dL [facility] Blood, UA Negative Negative - 50 Osvaldo/mcL [facility] Clarity, UA Clear [facility] Color, UA Yellow [facility] Glucose, UA Negative Negative - 1999(110) ++++ mg/dL [facility] Interpretation and review of laboratory results Normal [facility] Ketones, UA Negative Negative - 160(16) ++++ mg/dL [facility] Leukocytes, UA Negative Negative - 500+++ Edison/mcL [facility] Nitrite, UA Negative Negative - Positive [facility] pH, UA 6.5 5 - 9 [facility] Protein, UA Negative Negative - 1999(20) ++++ mg/dL [facility] Spec Grav, UA 1.02 1 - 1.03 [facility] Urobilinogen, UA 0.2 0.2 - 12 mg/dL [facility] Outside Record[facility] 11-13-2024 Outside Records [id number][facility] 11-12-2024 [place] [address] Ultrasound Report Signed Patient: SHERLY ASTUDILLO MR#: [id number] : 2000 Acct:[id number] Age/Sex: 24 / F ADM Date: 11/12/24 Loc: US Attending Dr: Cole Alonso D.O. Ordering Physician: Cole Alonso D.O. Date of Service: 11/12/24 Procedure(s): US OB BPP w non-stress Accession Number(s): [id number] cc: RADHA GOMEZ ; Cole Alonso D.O. The [address] [address] Patient Name: SHERLY ASTUDILLO MRN: [id number] date: 2000 Sex: F Assigned Patient Location: US Current Patient Location: Accession/Order Number: [id number] Exam Date: 11/12/2024 13:57 Report Date: 11/12/2024 13:58 At the request of: COLE ALONSO DO Procedure: US OB BPP w non-stress BIOPHYSICAL PROFILE: CLINICAL INFORMATION: Excessive growth COMPARISON: Pelvic ultrasound 06/07/2024 There is a single live intrauterine gestation in breech presentation. The reported gestational age is 31 weeks 3 days. The heart rate uatqwpaq213 beats per minute. FINDINGS: TONE: 1 or [...] Bailey Beasley M.D.11/12/2024 1:58 PM Dictation Location: [place] [address] Electronically authenticated by: [id number] Y Date: 11/12/2024 13:58 Dictated By: Bailey Beasley M.D. Signed By: 11/12/24 1401 DD/ 1358 TD/TT: Carbon Dioxide Operator: [facility] Radiology, Radiologi MD juan carlos - 11/12/[address] [address] Ultrasound Report Signed Patient: SHERLY ASTUDILLO MR#: [id number] : 2000 Acct:[id number] Age/Sex: 24 / F ADM Date: 11/12/24 Loc: US Attending Dr: Cole Alonso D.O. Ordering Physician: Cole Alonso D.O. Date of Service: 11/12/24 Procedure(s): US OB BPP w non-stress Accession Number(s): [id number] cc: RADHA GOMEZ ; Cole Alonso D.O. The [place] [address] Patient Name: SHERLY ASTUDILLO MRN: [id number] date: 2000 Sex: F Assigned Patient Location: US Current Patient Location: Accession/Order Number: [id number] Exam Date: 11/12/2024 13:57 Report Date: 11/12/2024 13:58 At the request of: COLE ALONSO DO Procedure: US OB BPP w non-stress BIOPHYSICAL PROFILE: CLINICAL INFORMATION: Excessive growth COMPARISON: Pelvic ultrasound 06/07/2024 There is a single live intrauterine gestation in breech presentation. The reported gestational age is 31 weeks 3 days. The heart rate oqtfjjdh188 beats per minute. FINDINGS: TONE: 1 or [...] Bailey Beasley M.D.11/12/2024 1:58 PM Dictation Location: [place] [address] Electronically authenticated by: [id number] Y Date: 11/12/2024 13:58 Dictated By: Bailey Beasley M.D. Signed By: 11/12/24 1401 DD/ 1358 TD/TT: Carbon Dioxide Operator: [facility] [facility] Radiology Study observation (narrative) [facility] OB BPP W NON-STRESS Ordered By: Radiologist Radiology on 11-12-2024 [facility] Work Phone: Outside Record[facility] 11-09-2024 Outside Records [id number]#1.00O TGTIFF Normal [facility] Urinalysis macro (dipstick) panel (U)on 11-06-2024 Bilirubin, UA Negative Negative - 4(70) +++ mg/dL [facility] Blood, UA Negative Negative - 50 Osvaldo/mcL [facility] Clarity, UA Clear [facility] Color, UA Yellow [facility] Glucose, UA Negative Negative - 1999(110) ++++ mg/dL [facility] Interpretation and review of laboratory results Normal [facility] Ketones, UA Negative Negative - 160(16) ++++ mg/dL [facility] Leukocytes, UA Negative Negative - 500+++ Edison/mcL [facility] Nitrite, UA Negative Negative - Positive [facility] pH, UA 6.5 5 - 9 [facility] Protein, UA Negative Negative - 1999(20) ++++ mg/dL [facility] Spec Grav, UA 1.02 1 - 1.03 [facility] Urobilinogen, UA 0.2 0.2 - 12 mg/dL [facility] Office/Clinic Noteon 025 Office/Clinic Note Patient: [...] 124.010 kg Body Mass Index 42.82 kg/m2 [place] Body Weight Calculated 61.6 kg BSA Measured [...] lesion. Impression and Plan Diagnosis Tinea corporis (FOU08-XT B35.4). Plan: Will treat with topical antifungal over the next 7 to 10 days.. Orders Orders Pharmacy: ketoconazole 2% topical cream (Prescribe): 1 zoran, Topical, Daily, for 10 day(s), 30 gm, 0 Refill(s). Orders Evaluation and Management: 59136 Office visit - established pt, Level 3 (Order): 10/25/2024 13:24 EST, Qty: 1, Tinea corporis - Eustachian tube dysfunction. Diagnosis Eustachian tube dysfunction (YNK54-CQ H69.90). Course: Discussed with patient most likely some fluid behind her ear. No evidence infection. Continue to just observe.. [Electronically Signed on: 10/25/2024 14:14 EST] Radha Gomez MD [Verified on: 10/25/2024 14:14 EST] Jason MCNEAL, Radha Santo [facility] ALL CBC WITH AUTO DIFFon BASOPHILS ABSOLUTE AUTO 0 [facility] Basophils/100 WBC (Bld) 0.3 % 0.2 - 2.0 % [facility] Eosinophils/100 WBC (Bld) 2.1 % 0.9 - 7.0 % [facility] Erythrocyte distribution width (RBC) [Ratio] 14.3 % 11.0 - 15.0 % [facility] Hematocrit (Bld) [Volume fraction] 32.1 % Low 36.0 - 48.0 % [facility] Hemoglobin (Bld) [Mass/Vol] 10.5 g/dL Low 12.0 - 16.0 g/dL [facility] IMMATURE GRANULOCYTES ABS AUTO 0.34 High [facility] Immature granulocytes/100 WBC (Bld) 3.4 % High 0.0 - 0.5 % [facility] Interpretation and review of laboratory results Abnormal [facility] LYMPHOCYTES ABSOLUTE AUTO 2.4 [facility] Lymphocytes/100 WBC (Bld) 24 % 20.5 - 60.0 % [facility] MCH (RBC) [Entitic mass] 27.9 pg 26.7 - 34.0 pg [facility] MCHC (RBC) [Mass/Vol] 32.7 g/dL 29.9 - 35.2 g/dL [facility] MCV (RBC) [Entitic vol] 85.4 fL 81.0 - 99.0 fL [facility] MONOCYTES ABSOLUTE AUTO 0.4 [facility] Monocytes/100 WBC (Bld) 4.2 % 1.7 - 12.0 % [facility] NEUTROPHILS ABSOLUTE AUTO 6.7 High [facility] Neutrophils/100 WBC (Bld) 66 % 43.0 - 75.0 % [facility] Platelet mean volume (Bld) [Entitic vol] 9 fL Low 9.5 - 13.5 fL [facility] TBH EO # 0.2 [facility] TB PLT 332 [facility] TB RBC 3.76 Low [facility] TB WBC 10.1 [facility] Office Visiton 10-24-2024 Follow-up visit [id number] Sherly Astudillo 2000 F Date Provider Department Center 10/24/2024 [id number] LUIS EVANS [place] [facility] Family History Problem Relation Age of Onset Diabetes Mother Diabetes Maternal Grandmother Diabetes Maternal Grandfather Family Status - Relation Status Age at Mother Maternal Grandmother Maternal Grandfather Level of Service:[address] [place] OFFICE/OUTPATIENT NEW MODERATE MDM 45 MINUTES Reason for Visit and Comments: Rapid Heart Rate [685804] - Episodes of tachycardia include lightheadedness and SOB. Denies chest pain. She says sometimes HR gets up to 160's with rest. Problem [295294] - Currently 28 weeks gestation. This is her 2nd . She denies having issues like this during first . Palpitations [053183] Shortness of Breath [421859] Dizziness [] Normal [facility] Urinalysis macro (dipstick) panel (U)on 10-22-2024 Bilirubin, UA Negative Negative - 4(70) +++ mg/dL [facility] Blood, UA Negative Negative - 50 Osvaldo/mcL [facility] Clarity, UA Clear [facility] Color, UA Yellow [facility] Glucose, UA Negative Negative - 1999(110) ++++ mg/dL [facility] Interpretation and review of laboratory results Normal [facility] Ketones, UA Negative Negative - 160(16) ++++ mg/dL [facility] Leukocytes, UA Negative Negative - 500+++ Edison/mcL [facility] Nitrite, UA Negative Negative - Positive [facility] pH, UA 7 5 - 9 [facility] Protein, UA Negative Negative - 1999(20) ++++ mg/dL [facility] Spec Grav, UA 1.015 1 - 1.03 [facility] Urobilinogen, UA 0.2 0.2 - 12 mg/dL [facility] C Throaton 10-08-2024 C Throat Normal throat justine isolated No pathogens isolated Normal [facility] Comment on above: Performed By: #### [id number] ####[facility] (DEFAULT)[address] [place] [address] Coding Summaryon 10-08-2024 Coding Summary HTMLBase 64 WfevveorCFl7uEf+PGhlYWQ +RL8OVXEcJ14khBKcjV5iT6 NMTElOSywgQVBQTElOSyIgb eVeBD0ntIYaWMCx IC8+GJ5eVLXxWavnkVOjx6F 6cSO5V47olv3xHIavkJR6ZE LeSmPkxdwlr3xjxZh5QZqfG mluOyBt NRQraP47YZS3rN02Io73bZJ caIRaf4ybuKs6HwEaJUWhTE S6vEzbPWqfv6GjVUYxR12fb OXxf4N4 KCPguLvseZAwWwOxpUS2lM1 hYFnwtstva8lvntvzZgg8fi 23xZBhs3M0ePQ2U7MdkfE3K GJvbGQg FrefbJCNaC5qxjrya1zezsm mHtXrTQMaMSr1TBh5CJXkhC rnRwTmDJ32SFD5GJJaseXzM 2FsLWFs cXmjFpN0u6L6Id1VY4LIGbn oQ0TLSHRKTTwbzGQ+PC90cj 73K1CvOnhmIfi7FLEyJHP5m TT5nU8k URYvICtbz0E8vRC3N0MeudA yey8fx8uqQZLeCOuoP73gtW Rbv4G3JGYahPK6XNWpwOqpE iBzaG93 Oyc+JVNhvAbml2EwRmzvj2f rj0jdfMd1YkooRNKqkhQylD fjZLJ2q4NyWm5iPJBpuJP9b LL4aA6y LaMkJjX5PMpmJ433OkGreTV fUvstB10xO1VidJQ+PHRyPj q8GIYyeUrqEL6yM0FhNHYha mctbGVm qSbyBE2kEERmtuduYBWbeO0 gTPIwJ4t2PxAbWbL0MNoeQ8 XuWZBajubhVf83mG0ySiDfN xE9JWhl Q0OiskE6NPImrJLcBEtzQLU 0E16zd7N9UHUbGIOdYQT7yB C7gB6mwJwbwmiotORlqHbxy mVydGlj VUbxEYvjV046ZVKkwNhrPyS vZGluZyBEYXRlOiAgMDIvMD MvMjAyNTwvdGQ+QKUkZPB2i WxlPSAn qHQiCFeuBj8xqInceMbkND7 uQCGhhhvrKKKimT1dDHFraF AlzGdlOD5qJFBmlbgqb322X iAxMHB0 HOVjzALoL4AuiF4aAqCsERS tPFEoP7IzdCJnKDjjJ065NL hxNrL5VVHzmwBlY4JdOYIhv WduOiB0 g8K4Py4Tg5IcygygZ7FadEK zSnXfFygvVTl2Q1KdVkhnhN I+PV87RQSwOT61BLx9EJY7h WxlPSdi KVNyZ0BuqL2lLmRcSUZuEBC kOyc+PHRhYmxlIHdpZHRoPS glVTZpXnPaaTwxYL8uEs5bO GVyLWNv aGhnnPXhUvLch6dgPCLvIMs tZH2kwHnwR3AmgDV4UJUqg0 w2Yg78I66lA4UijNK+PGNvb PZ5lUM6 bP0zCnNhWqM3WGjmK038KxS kqIXmFsgqt3caf1xafBn3Eg N1XDHdwxFzxNkbNCV6e2BqO c87F59v IHdpZHRoPSIxNSUiIHZhbGl fap2nmV3nUq9+IFNneTM6gO X1oR3tYxIaWlU6QBhpE074N nRvcCIv Hlfzy2rcl1mtnMp7UuVwZWD nmvPudAxbPEE1s6YnWr03B9 OrxTuau9TgOiv3ho10tEKtu 5L9kKI8 S8CjMMSrrbuuyUCkgQawQU0 rHXUdbsaoTWSssF3rXCYqW9 d5FnHtJbL9RHddR7FwkhY4J GJvbGQg NPTjfQNFvD5ofxbin2fwtfj lXbDcGOLfJGa7GLg2YZJceM cuOpQvMBP5QjR8GMA0eAZij A2smPzx xxvltN1oNdi+GJB2aWMuaBY QLE2bVoloxEB+SYQoJHZ7kZ aiYRgxIETpdE1cEHQtN6d4Z iAwLjA1 OSplB6TqnlX8THVjrQOgWXG ziWEXsE3uzxvha7cyebqkJo HjLRCeOHo0AJd2QMLesCfyO iBsZWZ0 ReB7BZM6zTQgcQ7roZfvwds waU9aTga+XierzTnrPQE6HK p3U3QrXci0XFBjbFvsWP2ap GFkZGlu Yt4quMsiyTnsCF2tWFUjauw bb266DfIza5lkBHTmsUCcFA yvFFB0V74sx7W9PXPfNYIbA TR8vAR8 zN6naVdjvbhvaZUvpTssitU ulYdwJWfcODmiK028JMHxeB vnSjLpATd1S0UcWnu4YDQpc HybWB5o zPViEMeoDd8xeTxklIcyCT8 mBTKnyjmdi868HdPvf6cxCI NprQIeIBknKTC4H54ar5Y2I CMwMDAw BQF9wSR6cF9reQrrqkucfVO mdDsgdmVydGljYWwtYWxpZ2 27NZVnqKrnGjEhoOv5A2HxM wt5IATc sHymEF8fjCTeNDztXr3otRj vaDbzEA7yLFKpkijou422Vc Vmt3qkFVJzmYYcBNyoQIY0P 29vf9V7 HILaDDJsHCB6pJX3hX8beMg nbjogbGVmdDsgdmVydGljYW hwIEmzN192CSJryEtoNtQis GllbnQg YGrrNBb5N2EuIqeanZB+PC9 9AFYqBO41wMImjFScp0ucyJ q8CrLyRRXwAWY5eUbzAMwbt 3JkZXIt E45uzAAus0X5HGTmoOokzHM cDzDqqVJ3oI5nWEbhazueu8 kjolitHvslb5oljh55eQ67H 29sIHdp ZHRoPSIzMCUiIHZhbGlnbj0 alW0fFa0+KXFicUF9rBT2rP 0uDPCkKrI1VPlpJ464PtXhi CIvPjxj e9xrs7kybPp4GzD8UDBqthY wqVpuPTP4n6IwQh07G50qZB dpZHRoPSIyMCUiIHZhbGlnb j5cyX7o Ii8+WQQfsTR6cJQ1kU8xOvV aSoU4PYslG844XwLgeHZcJj cdV63xJ8SydRQ+BBWuUpc3O CBzdHls NI7iuUFgLAunMk7cLDR9KuL cIiUaUZxcN5RtAPCgqephzn dsiCZ2INLgWWDjxS57Gq2nl DogMTBw hBYLhC0aqnydw9wffdatEuT gTUTuOYe0CSk6DIHrvUzyJl KpLGS1NeX1NJN6cZJgiN1vq Glnbjog fW9sD4ZcDGUxwhmbWr89uD2 eGkAvWvM4WSjzHpv+Q1JBV0 ZPUkQsIEJSRUFOTkUgTUlDS EVMTEU8 M5EtOms3NGXerTblOR3pjGD lALzxBc8tqAldtGeiTR9eKL YtqhgbSWZyzR3uSSGbkNZav KknVA3t NMDwnqrmv532RuPvFCS9RBS clFPlT6KtkY5mSdQpSGDaFJ PyK1CheDGhLPkcF729OUhoT tO5DRVz czGaE9YeYCFgxCzvGmS3q1R 4Du9aUp2bFM6xNJb1WJ87HJ 61qMVow7B5tOX1J3WsZETjv mctcmln qTP1DJVqXRWulP08xWMsGBp fBw9ng2X6k253FSVtZAKkpJ 67Ox5jgTnuFRRdrATVhO2qf iiah9ns rckvAcBqPCHaOIh4MEu3QGE qsUdxPeMhDFZ9ZjM6NQF1lB DneR2cgYzoxdetzF9iBad+M jYgWWVh sdX4M5UsVfh5EVLygZlhCP4 ylCFpUUqqSw1jlFqmyAhiEV 1fRHMkgyxfLAXsnJ8uRYFhk HRvbTog LA0qTOYgvrizu265UgXyUII 0ECVfwJRrI6JuzT0bJjCcAH LyVBTeD0BhbUSxJUcwJ574I GxlZnQ7 RAVpdtYxM3VrUCAabYnpUkQ 9w8R6Ii6QDN2RXNJ2I8PuMx q2MEFqyXmnHF3toUUcHAogM b8kaKiw gKisRI1gNXPzqlhlYCFzyE5 gZVArbKDxaLwnII6wUZWgyz hap852EzLzAZK9KBOfvBXlK 2TkuL0e DkZoQBXyNMGkJ9MmzJToOAe uY163RKuyKlH9CLKpviEyI7 ZdGVWhjEpzHxS8z2I2Sk6OT DwvdGQ+ KE01xx90Q0VyVksvAmu2SEV kBUL7nYQ4lE6hDZHyEWjpu4 X2mVZ4K8CrpfXqiz3ul5hnW XBzZTog G13baWMtx3K0NSMkiBT2IHC zqHxeQmSpuG75Shc+PGNvbG toz0DsDxjrz6jxq6uepKr0U jMwJSIg noKssDpoJXB2y3LdOs55E27 sIHdpZHRoPSIzMCUiIHZhbG vffu6uvP0rGb4+GYAbjYE2h HP9cC9n IxFdMbR9HGmpJ374IgIfkSF eAidkr5bxx1ydhKk1GfDyRE HginFzcWzwMRA8b6DvNo60B 2NvbGdy n5WnObl8ov76eUUkv1A2eBK 2R9JiHHOdxrrctFLkgRzsZH 3jEBWxetdoEJUreO7yGLXsV 8l8PdRu IkD8EMlwE0FpjuB7ZZUyjMD kKEYrbFEAlP2lqplec9rvai xfFwIuRPDrCOa2PFc1WWXuh WduOiBs SRI5TfK4ZTQ4hTDxsC5jjYj pzltkaJ1fBtg+FYv8w2yjdD WuNO5buIV4WM52QK08wRNlp 4U4xOJ3 M8PiFCWkuehnmcwzyDU3PCM jQAPzlZ09Wl8bgMjlPy8gTH OlOTE8CAAwjGDaC0MaaP2eB iAjMDAw HMNmC5RhgSNoHZoyF548NFm tKoB0MCPineByG1PcJGFlpL tfThV3t9C9Gy3QNR79QS80O C32mWDm i0O1vII9D5ScSMYtahvenll hrTU5CBSwDQGfaA09Pd0bzL yvXt5cPSUaTAW6YQOviNLpB 9EaiO6d UjCrCYUyAVCcT3IeeYQvDGd xX633WLgzNwI7AQXpseFtT5 HwEPCcsZvtLmI3o7H6Ir0AX s98JJ61 BL43sPCov7V1uLH8X6JfLWI yanhurbsjfHB6IHZyJHYqvU 06Ro7jnEdzPk8mUMNxKLS5L FRpbWVz J7KwbZ0mAcCgNEKcSMWlD3L fhBIqFIrcX029UBaxCzS9BW GjnsIuB1FvRESkwTfhHyQ4h 5A8Dc0E ISdroij7A6CsEzbcpFD+PC9 3AATeXU62xBQgcNEtk3rvuV y1PuZbFEFuTQR1zKdjQQulc 3JkZXIt Y29 (more content not included)... Normal [facility] POCT Rapid Strepon S. pyogenes Ag IA Ql (Unsp spec) Negative Invalid Interpretation Code [facility] Comment on above: Performed By: #### [id number] #### [facility] (DEFAULT) [address] [place] [address] C Throaton 09-26-2024 C Throat Normal throat justine isolated No pathogens isolated Normal [facility] Comment on above: Performed By: #### [id number] #### [facility] (DEFAULT) [address] [place] [address] Coding Summaryon 09-26-2024 Coding Summary HTMLBase 64 TjptcqiyTSj7lMb+PGhlYWQ +DL0UPSEgL70slJXhpV2jF5 NMTElOSywgQVBQTElOSyIgb mYkGP3tzKXcTNFk IC8+GI5xMHKpTgscyAZmm0V 9cBG8O72ymj9nLIbdgAJ0XT UtAkEytywby4nvgLo1HQngH mluOyBt SBTggE76SFW4zB88Fc96fCQ krDPuz2wytVi5XrBtPNVxUU D5lSwjHXpdb9TzZNOvW13zs PMde2H7 RBYsgEumuNOaUfNskDA1qD9 gITyqhauis5aqtrebNxu5zg 47yTVzc9G5gBL5D4ThwkZ3J GJvbGQg JzrrmYWPcH6jsjmom4bmbib hIuWcBQTbTLu0WFo7ZHDpmN wlZxOiFN26BAW0ZNOypyHwE 2FsLWFs aEniYiB2n8O6Ba1AH6WUTvw dW1IFNYMOKRkzhIT+PC90cj 38O9EgPcoaVmk0GCMcOKJ1j RP8bO0t COXuCFwrv5B8iNF8D2LsqnB rol9at0yiBHOgDVneZ27maZ Kgd8P2QSXzjBR0CGYllJptG iBzaG93 Oyc+ZCVgrGlnt8GvEwoop9v bg0fvxRi7LwxoQCPhfcOtqG niLIG8e7YoZo5aAMKymZT2x GR3mD3t GdOlUfK9ILuxP240XfRefMY yKehaZ81uK7KdzZU+PHRyPj x5FKOvkYidDT8jU2PxTFWze mctbGVm tXkcBC7fXGOartchQQEngF4 nSRGhD3p8DmPaJcS0ARrkB3 ZlJAJmqswvYw33oT3nRgVlE jF1RMvw S4BwyvE2CYVzwYDmRPqhFXQ 2A72vy1S0OGOpWHUcEDA8nR M4kN9leUvsezlvtUHyoVaah mVydGlj KVrwAWjjG149LREubNtbHvL vZGluZyBEYXRlOiAgMDEvMj IvMjAyNTwvdGQ+RITbHJR7w WxlPSAn dRUqFWgeVb4neHsiqDleSP0 aRPKqgykkJGTgyH1aLODheY BnaEilBX7jYURpvzzjy476J iAxMHB0 ZAGffBXjG5XhfX9dAcAoNJY rSDNhR5WkaYPhRJznL198TN imCxW4YARjohNgC2AtNPKnu WduOiB0 c3N5Fq7Rk6BhkrjoX6AakPQ wOiQuEdcbVTk3K9QqBksttX I+RM87FCXuHW51ISl8WHB1q WxlPSdi XEAsX4WheE5gLiIfUIRgYMB kOyc+PHRhYmxlIHdpZHRoPS xfZMXnYlJrtRvnHS1bYr4fZ GVyLWNv aTywpYEwAdKbg1zrHWNaBKg oOO0geLboK5BgvFL6DAMuc6 g4Kq29L50wF6SocWW+PGNvb KN7jZW5 qE3iAoMdWvY6LUgjL772UaQ jkFDfFjqxq3bep4anaVv7Oh Z9DGXnodCukCcxSDC4e6IsP p36X62b IHdpZHRoPSIxNSUiIHZhbGl bmt7byN0lQb3+GDUqkII7uB N7tI6iDeUyJmS3FAuhU281J nRvcCIv Ppydx8dru5gwlAe1CnBeKGA bjeUekJcwNKC2i0LdFs42H0 CwrYyao4QcSuk2yo84yHWko 5F0gLO4 E8ByAVNldbhvhPKbxYakLX6 bZHTmacjhAWQnoM2oNPOeH5 f7TtIwNcV4VMffF3AgwfI3D GJvbGQg UEAxxDCLiT7fbuoar9exfad gIkYaYXWeFGe7QXy1CWBujH ieTeOzFTI8AhE3CNW8pXZcg C9nkVjp kgqvnF4wMjj+XCO8uCTiyKR SFE6dZpbfhXQ+ISOnNCV8bT fzRMvrDKNhaR7tLXSnK1b1F iAwLjA1 MGpuL9MpzpD4DAFyvGIxWMC ytLAYdJ9aoxmxz5xshukxEr MuOWWsXLz0DXa1MEVcuPmfY iBsZWZ0 EoQ8NFX3cPUiyR8iaGvhgkw zkX6sIkx+RqkauSceDWH8FY p3Z9OmCqo2TWScaRvxMB0ux GFkZGlu Lo1baRbuxMqpCG5aADPfemy xv265UiBvu4usFEDwuOZrIS aoUOH6B91bg7K5GGWoPPJhY OS2lWG9 hQ0paEhkevdrjPWenNhhfyG plKavYQqxFLupJ938WIAwxB fgDtJxWNu8F2SdQgj3TLEdp AvvKK5t wCJvDDtqYu4fgFhtgNniVV8 dUAYpogfwc650FnGnc8ykFI UfbOKxTUadOTN0D95vd7R3I CMwMDAw IQF8vJU4sP5xrAjqlfrwzUN mdDsgdmVydGljYWwtYWxpZ2 37AGIopYidEjJshWi7I0LnH aq5WSWh rQxfJX1vdUSgKVkuUz4wdYp vpSpiLI3zNUZtvgayb856Ib Lmb9lkJBYvmMFhSYzwEGP6Q 10kj5H7 WRKvNOAuVPQ6aNM6hL4sfUn nbjogbGVmdDsgdmVydGljYW ymVUdvD475IBJkmEeoHnMic GllbnQg AAfjKXf2G1PaQqczfLC+PC9 1NBOlYC53qIXgcMUkg5bayS e7OnLiJVWgSZD2fPgsIMczx 3JkZXIt B78zwHPye0M7LABqgLdobJN bHmGooXR7eM3fRBcqbdmku2 usitbcHwwlu8dqyn48bL13Q 29sIHdp ZHRoPSIzMCUiIHZhbGlnbj0 trP6mEa5+EZHfhON6sQK6sG 2iDJPrQxA5FPtzD086AzUwi CIvPjxj k1uzv4xvvXi2RiM8OSLzkhO azEnoZGI7l1BiWx14F82dTJ dpZHRoPSIyMCUiIHZhbGlnb s3bzQ2l Ii8+PHOqgOJ8tCC1uK8fBlZ aVtN4EKciB261OkGuqAOsQk qsM03mJ4VqmLX+XWYgJsv1M CBzdHls LC6kuEHdPGqxXy7wQLJ7HoE aUwSuAWjoS8BhONWiglqipg dkaHH6TAFkXRMsvK99Ja8ml DogMTBw rDDHnK3xvjkvk0opouylUhS kZBKoTPk4OKz2SNCazTonOv MhLMX2SnG2ALX5bFPgqY1fo Glnbjog yV0mR5XaDSTkuojdLr02kU7 uCmHlJdI7VDgnIvx+Q1JBV0 ZPUkQsIEJSRUFOTkUgTUlDS EVMTEU8 D8DiGca9JWUopZafRQ3qyFR iCAeeEc8cnDylcYmfTZ9lNG AaxqkaKEXirT1qQDWqlLOfz AfwKO5s PYAflpmyy819FoAmDJJ3QRZ mpQPtQ7KolW3uYsMbZTZhZW XjZ7SthOHcIMtgI160QDdxE qQ5GNCi yzIcQ9FvYETuqPmfHzJ2i6P 5Om7xFd9eIZ7hJHn4SP41FA 18aFXkq2S9iNB4E9XmDVSmj mctcmln xJD0SAGrCRTtaY95kNXzSOo iMd6au6S3q742YZMzVZZudD 28Rd4ouOtyLTQitRJBpN0yo nfmr8hf sqojWyUxROYnDPd5EYn2QRQ zpEnyYrRoSWB8VhN7LQS7oK MxzS8twHajoezdbI4wKjz+M jYgWWVh plA4M6AmBeh7ARQqmTwsVQ8 vwNBbAAknXw4hiHlyhJdjVY 1dPNFtrmnuIHTwwZ3wJEHus HRvbTog EG1wYDLijbdes365DhBnALD 3DYQpzVRbP0SybO9mBbWeIY RtIFChI8EwfQDzMUhnJ796Z GxlZnQ7 APPsczAhW6KsBSHgxKmbSrO 0g1U3Cd4IAZ4ICGS7L8IzDi u3UFPcyYipYY0daPSpHKhlF k5bgZcr nVubBJ3xRCEyjsukQGAxfW6 eQFBbhNHsyYroAW5lEGDbwr azo892ZwHyCOY4PYWnlISgV 7MenD1r FzLnCTPbMDGuI5EdgLHcGGu yL058WNlvNfP7ZQZsgsInW5 GdKLKtiXvzJrA9c5T4Ff0BN DwvdGQ+ ZN52lu20Y3FvCnomLav3KKO oPVE9bAC2kJ4nQYUxGRoyt9 X5lXP6D7DgydSkgu3hq7fsQ XBzZTog L37ugMAxd3A2NCZicIC7HMQ zaXsyDcNlnB93Jdo+PGNvbG yhb9BhEhhmk5zww0hrxZb5O jMwJSIg kcVkmGhgGAT3s4KaJv49K39 sIHdpZHRoPSIzMCUiIHZhbG llja8gtA5dMc9+DIQkyEB6c CL1lM8d AhAyOcY1KAmuT683ZeFwfZL tQnspv2ghe4kdwGg0ZgGuSZ DoncUxyAdrLCJ8b6OvYt06M 2NvbGdy m4MqOtm0zx58eBIpj2Y3dCW 2Z7AwANDubzcqcKTfdCuaAC 6sJMQshbkrBQPdfW5pFEZdA 4x2UqIk TtC7FSynA1TwpsP9XYVguSA sSVCeeDIHtQ8bljpuh5zccm bfWgTqQULuJFm8MBe4NAGoy WduOiBs ZDJ3VzJ2NFG8zUUrcL9isXx dvjmtxF9lDvc+IWh7p2hmoE GeOV2lpIB7AJ43GB61lMLvi 4B6yHJ9 I5OfNFFgzjsfzthbvVU7LTI iYLXzkS73Zx1lcXvcYq1rHI WsDGT5MXKwtXSvR9DnaB9uX iAjMDAw IBLkF4JexHLkILyjN686HUg bDrX3SKUxwlMdE8XeFSCwaI fgSpH4q9B8Mc8ZLT34NU50N F89hACx x1Y0yAR8N0MySWRiwuucxvf vsIG7CBVnMFBpwD76Lw2eaC eoQn6jMPQyFXA9KQGncIMpR 6FolE6i IsQpQEJuZQChN4QenAQnRQc bC945TZdtBgH7UAVtutXqJ4 ArIIQpnIywSbW9r2Z3Qz4JU d82RR34 TJ19kFNkv9N0qKQ4V0QzVTH gzvusgbevwUC7NIJyFKXzxT 55Cp1rxBncIw1wGQNbQIV5E FRpbWVz V2ZalP4gSrDnAVMdNJBmJ0G lwKJdOZreU890ARevZiG7ZH WxpoMeQ4VuRUHnkVgfUqJ4b 5A0Xu8P JWquntc2T0RzDgcztYI+PC9 9XMXdFL73dXUltAAmz9xgxS p4UoWkZGInBQA3qUwkPFikr 3JkZXIt Y29 (more content not included)... Normal [facility] ED Clinical Summaryon 2024 ED Clinical Summary [facility] ? Urgent Care [address] [place], [place] [id number] Clinical Summary PERSON INFORMATION Name: SHERLY ASTUDILLO Age: 24 Years Sex: FEMALE : 2000 MRN: Acct#: Visit Reason: UC - Throat Problem; THROAT PROBLEM LT SIDE Arrival: 09/24/2024 12:32:36 Discharge: 09/24/2024 13:30:00 LOS: 000 00:58 Check In: 09/24/2024 12:32:36 Checkout: 09/24/2024 13:30:00 Address: [address] [place] [id number] PCP: Radha Gomez MD PROVIDER INFORMATION Provider Role Assigned Unassigned Michaela Early MA ED Nurse 09/24/2024 12:34:37 Larissa Cobb ENVELOPE ADJUSTER ED PA 09/24/2024 12:34:58 VITALS INFORMATION Vital [...] Follow-Up: With: Address: When: Radha Gomez MD [address] [place] [address] In 3 days Comments: You have [...] next 3-5 days, also f/u with your TISSUE REWINDER, for reevaluation, return to the emergency department/urgent [...] 1:Oral sharon; 2:Pharyngitis Patient Understands: Comment: Normal [facility] ED Patient Summaryon 025 ED Patient Summary [facility] ? Urgent Care [address] [place] [address] PATIENT DISCHARGE INSTRUCTIONS Patient Information Name: SHERLY ASTUDILLO Age: 24 Years Date of : 2000 Reason For Visit: UC - Throat Problem; THROAT PROBLEM LT SIDE Arrival Time: 09/24/2024 12:32:36 Primary Care Physician: Radha Gomez MD Attending Physician: Larissa Cobb Comment: Patient Education With: Address: When: Radha Gomez MD [address] [place] [address] In 3 days Comments: You have been [...] next 3-5 days, also f/u with your TISSUE REWINDER, for reevaluation, return to the emergency department/urgent [...] these instructions at home: Medicines ? Take xzwc-dcv-kekqbtx and prescription medicines only as told by [...] cool-mist humidi (more content not included)... Normal [facility] POCT Rapid Strepon 5 S. pyogenes Ag IA Ql (Unsp spec) Negative Invalid Interpretation Code [facility] Comment on above: Performed By: #### 9 [id number] #### [facility] (DEFAULT) [address] [place] [address] Urgent [facility] 025 Urgent Care Record [facility] ? Urgent Care [address] [place] [address] [id number] PATIENT DISCHARGE INSTRUCTIONS Patient Information Name: SHERLY ASTUDILLO Age: 24 Years Date of : 2000 Reason For Visit: UC - Throat Problem; THROAT PROBLEM LT SIDE Arrival Time: 09/24/2024 12:32:36 Primary Care Physician: Radha Gomez MD Attending Physician: Larissa Cobb Comment: Visit Diagnosis: Diagnoses This Visit Oral sharon (B37.0) Pharyngitis (J02.9) UC - Throat Problem ([id number]) If you received any narcotics, sedation, or [...] documents With: Address: When: Radha Gomez MD [address] [place], [place] [id number] In 3 days Comments: You have been [...] next 3-5 days, also f/u with your TISSUE REWINDER, for reevaluation, return to the emergency department/urgent [...] and treatment you received today in the [facility] were for an urgent problem and are not intended as complete care. It is important for you to follow up with a doctor, nurse practitioner, or physician?s hotel assistant general manager for ongoing care. If your symptoms [...] can reach you if necessary. [facility] has provided you with a complete list of medications post discharge. Please inform your elocution teacher/provider of your visit and for further instruction on these medications. Any specific questions regarding your chronic medications and dosages should be discussed with your primary care physician(s) and/or pharmacist. New Medications [facility] [id number], [address], [place] [id number], [phone] clotrimazole (clotrimazole 10 mg oral lozenge) 1 [...] it is (more content not included)... Normal [facility] Telephone Encounteron 2024 Metal [employer]rer Authentication Interface Message Text Called patient lmom to call office for sooner appt... we have them available. Thank you Normal [facility] DRUG SCREEN RAPID (URINE )on 09-10-2024 [...] Healthcare OPIATE SCREEN URINE Negative NEGATIVE [facility] OXYCODONE SCREEN URINE Negative NEGATIVE [facility] PHENCYCLIDINE SCREEN URINE Negative NEGATIVE [facility] TRICYCLIC ANTIDEPRESSANT URINE [facility] NE[facility] US OB 14+ [...] GDLNon AGE GDLN ACOG TESTING Note . [facility] Comment on above: TESTS RESULT FLAG UN ITS REF RANGE LAB Clinician Provided Cytology Information Source.............Cervix Other.............. No. of containers..01 ThinPrep Vial Age Algo ACOG Crystal... FLAG LEGEND: L-Low Normal,H-High Normal,LL-Alert Low,HH-Alert High <-Panic Low,>-Panic High,A-Abnormal,AA-Critical Abnormal Performed at: 01 =[address] [facility] [address] Melissa García MD, IGP, RFX APTIMA HPV ASCU Note . [facility] Comment on above: TESTS RESULT FLAG U NITS REF RANGE LAB DIAGNOSIS: 02 NEGATIVE FOR INTRAEPITHELIAL LESION OR MALIGNANCY. THIS SPECIMEN WAS RESCREENED PART OF OUR EXECUTIVE CONSULTANT PROGRAM. Specimen adequacy: 02 Satisfactory for evaluation. No endocervical component is identified. An endocervical component is not commonly seen in the patient. Performed by: 02 Emilie Frost, Building Engineer ([facility]) QC reviewed by: 02 Lauren Ness, Supervisory Building Engineer ([facility]) . 02 Note: Note 02 The [...] <-Panic Low,>-Panic High,A-Abnormal,AA-Critical Abnormal Performed at: [address] [place] [address] Melissa García MD, Performed at: =G - [facility] [id number] Overhead Line Worker: Melissa García MD, Phone: [phone] Performed at: [address] [id number] Overhead Line Worker: Melissa García MD, Phone: [phone] SPATULA-ALONE [facility] RECURRENT VAGINITIS (HTRX)on 08-15-2024 ATOPOBIUM VAGINAE 0 [facility] ATOPOBIUM VAGINAE Not detected [facility] BVAB 2,3 (BACTERIAL VAGINOSIS ASSOCIATED BACTERIA 2, 3); MOBILUNCUS SPP 0 [facility] BVAB 2,3 (BACTERIAL VAGINOSIS ASSOCIATED BACTERIA 2, 3); MOBILUNCUS SPP Not detected [facility] SHARON ALBICANS, PARAPSILOSIS, TROPICALIS 0 [facility] SHARON ALBICANS, PARAPSILOSIS, TROPICALIS Not detected [facility] SHARON GLABRATA 0 [facility] SHARON GLABRATA Not detected [facility] SHARON KRUSEI 0 [facility] SHARON KRUSEI Not detected [facility] CHLAMYDIA TRACHOMATIS 0 [facility] CHLAMYDIA TRACHOMATIS Not detected [facility] GARDNERELLA VAGINALIS 29.341 Abnormal [facility] GARDNERELLA VAGINALIS Detected Abnormal [facility] Interpretation and review of laboratory results Abnormal [facility] MEGASPHAERA (TYPES 1, 2) 0 [facility] MEGASPHAERA (TYPES 1, 2) Not detected [facility] MYCOPLASMA GENITALIUM 0 [facility] MYCOPLASMA GENITALIUM Not detected [facility] NEISSERIA GONORRHOEAE 0 [facility] NEISSERIA GONORRHOEAE Not detected [facility] TRICHOMONAS VAGINALIS 0 [facility] TRICHOMONAS VAGINALIS Not detected [facility] GLUCOSE TOLERANCE 3 HOURon 1 10-11-2023 GLUCOSE TOLERANCE 3 HOUR mg/dL [facility] Comment on above: GLU FAST 83 (<95) Co l: 08/10/24 0708 GLU 1HR 131 (<180) Col: 08/10/24 0812 GLU 2HR 124 (<155) Col: 08/10/24 0912 GLU 3HR 95 (<140) Col: 08/10/24 1013 [facility] Urinalysis macro (dipstick) panel (U)on 08-08-2024 Bilirubin, UA Negative Negative - 4(70) +++ mg/dL [facility] Blood, UA Negative Negative - 50 Osvaldo/mcL [facility] Clarity, UA Clear [facility] Color, UA Yellow [facility] Glucose, UA Negative Negative - 2000(110) ++++ mg/dL [facility] Interpretation and review of laboratory results Normal [facility] Ketones, UA Negative Negative - 160(16) ++++ mg/dL [facility] Leukocytes, UA Negative Negative - 500+++ Edison/mcL [facility] Nitrite, UA Negative Negative - Positive [facility] pH, UA 5.5 5 - 9 [facility] Protein, UA Negative Negative - 2000(20) ++++ mg/dL [facility] Spec Grav, UA 1.02 1 - 1.03 [facility] Urobilinogen, UA 1.0 0.2 - 12 mg/dL [facility] GLUCOSE 1 HOURon 07-31-2024 Glucose [Mass/Vol] 132 mg/dL High NINF - 13 0 mg/dL [facility] Interpretation and review of laboratory results Abnormal [facility] Coding Summaryon 07-16-2024 Coding Summary HTMLBase 64 CupfuirpUEx3qEr+PGhlYWQ +NZ1GZBSiD97wbKHtcK3uW5 NMTElOSywgQVBQTElOSyIgb kWbYJ0qvSMaBEXq IC8+FS3mPURzJdzniGSno8R 2aBW2M03xvn8jIQgtxKT6OF WyPoPeouofn7ouvDb4MVpyP mluOyBt ZGFznJ28CZB9nN47Bs75eOL gvLWhr0fdbAk3YsBzOUVaEY Q1mYsoDZinb0GwTOItQ78am OBiz9T5 ZACozZbcyLQyLwCijFN5gJ5 cYLarjjkle8mgtohmLjg7ql 25cBGki6E8oSP5F1SescX9N GJvbGQg IjdmaPKZbJ2xzsiox0caxih jAeXhRCGmHDt0EGj8FIZilB chJuVoGQ33STU7VDDaenKmI 2FsLWFs nRngIwJ9l6Z3Ou4RU0CIXpb nN4GZORBUAUqgnCK+PC90cj 18U4OnGywsCpe1QQGyTHZ0w LG9lB6j QEDiLVhtg6U6vDE3A3GpmnV eld5tu8shAIJwOZgqL56tlF Ozl5M4TJMymXD3LQBgzQeiV iBzaG93 Oyc+MWLswBhfr1PwTrszg4n fl9pfdMl7AhzvOUPnmlUkwS ahTYH3m5OkUc0cVIGddOB2v QN7xO8e CvIzAbV1RFxoQ589XsSovMC yObrwD11xC6TkbGL+PHRyPj g8EAUuzFcaAZ2bZ9WvFPRhq mctbGVm rOipOK6kEVYeflbqTCFqpT8 jNYTeV8c8TcUzQuH7RHhtE4 BaKRFzywkmIw15lR3wWhEyY iU4KXqg B6FdmrW2FJLzxFQoUSugEFL 8T47td3E8YVLrULZcUQE0kS F4fA7fpZubqffdlFWucFbvo mVydGlj PZmnVKogK262CMHvtSdrBqP vZGluZyBEYXRlOiAgMTEvMT EvMjAyNDwvdGQ+ZQQbXCE7v WxlPSAn rSEkLMueVz8hjPnhzMvtBI9 kRMYofhhvUPAoeY4eJIAntG IgvXgfIL0oVTBsfdvkc882Y iAxMHB0 QOOvaMKvC0UfcQ3pJdWvLJP wYRBxJ5OwrMDdLWdpA744CB yiCsP9HZZizuHhV8GnREPwq WduOiB0 r9W1Ne0Kb7ZtpdfeT6FsjBE gKvLrAqziYVe6L1UzJcuofS I+VK60GEUdIW39QQw8DPN5u WxlPSdi VNNqF3FwpD1aGhCtXCMtTIA kOyc+PHRhYmxlIHdpZHRoPS brGIKdCbScfQbrXV9nQg9bD GVyLWNv zOxrgXLyWqEys0hgDPChYKg fEY9exSlvP4GreWU6XDMmm3 c6Pg52T72jY9ZyyBE+PGNvb ZY5oIC1 wN6jEvCmIqP3ENdtB887DlK psNVoQzael0blu4vimIf7Jq G9XCXokvEhnFxmREM1g4LfL n32V28v IHdpZHRoPSIxNSUiIHZhbGl bpd9bsL4uVr3+ALAaqEU4yO G2eX0cOjCrGbT2FHadI073I nRvcCIv Lclau8aqf7hbeQf5YnWzRAD eyaAnjZmhVTA0x4QvFi99C3 KznJrdg0QxVqj4im50zMNhn 6A1iDD1 I0XkUYYxwebtoHQdwTlzUC6 dNTKottgwGDJwbP6vGCQwP8 m8EaYbAaP0SRykO7UkpbI7J GJvbGQg SDBxcVAOaS7egdpma9rlqbj mXaVyQOCbOBn6YYe9CMXkhQ gqCrHyVAM3ZvY7UQN2qJFfx H6haMhu htqziA2fFrr+IDF4rDEbtXG VHR2yJxtndCE+WJDxIVU4zX upRUotTGZuvM5gDWWeZ6k1Z iAwLjA1 OItjK9FghgF3CGEudHKaISI mfEOYyH9eaqsyu8qfopxjCu MvHQHnQZn1KXi2TDRxtZgxS iBsZWZ0 HsQ2XXX4rJIhzG0awPqgybg mzW9cUkr+VzpkyOshPVD3GA f0V9GxKqg6WQThtHrhPB7mk GFkZGlu Sc7awYuloDdpRK7nBMFkbre qf852OgFqj8uvUQMdmGCnGU ovWUE2S95pf4B7MNVeHORxE VT9dGO5 bM9fyJjngdahjLNvbIytvxH gqHqhJRhiOBllQ319IQQrmH xgJaHkWXf8Z7XoGqv0THSke QigOO6y pCAzRTmuVb8wjQcnuXudSH2 yIAFyuqqqv736KtNyb6cfZC ScdRTsDFkhPQO4M22zo6D4J CMwMDAw PLC0wCM1qL5osLoamwzukAY mdDsgdmVydGljYWwtYWxpZ2 36NXYlwMglXfQztZm3Y2WdG vo1FDOu wDanLT7zhCRqIMgcOp8ubMb htHexTB7hAKWbfzmch936Xu Dhr3uzVLYxcHHaWGzbDRV7B 95hr9A7 IAYlKNYuDCO6zTT6yZ2zpTq nbjogbGVmdDsgdmVydGljYW stAIovC732LSQlbNyrCrRmw GllbnQg WNjqSXz9B9FcHhfzbBU+PC9 1EVKeGH75pVCimLOcf5tqiN q8SpPoFJUbOKP4mOscLBfqz 3JkZXIt C71orMYtf4I1SVEspOwbiNE jIhHmrII7gR1qOOdkvyiyi1 rfzjreGinwp9tmty05uJ68G 29sIHdp ZHRoPSIzMCUiIHZhbGlnbj0 mmZ8sLj1+CTFdtJM0cPY6kF 0cEWStSqJ1SUowU743ByXfx CIvPjxj j0pwj6rkyYh7YeC1TOYhqgM ftYbdNJT9e7LmUd97Q37aZT dpZHRoPSIyMCUiIHZhbGlnb s0wkD2n Ii8+UJPxiST6dKE0kL8fWyJ aLvH0LRaoG602NbRdpNHpEg tcL84qQ7SnyUD+KXWaYdu7N CBzdHls XR0drGAwRVqyXn6yTUZ7OdW mWsJlNNunX5WjBROrbbadwv pnnDH8CYDlTMCluV75Bs3le DogMTBw oEKEsS6kkcnqy1yxrzppAjJ yOZKtJUh1XUm6WYRwvLzgLp IlQHJ1FnZ5ETV9bJUdvO0eh Glnbjog bK0pA6WrADHyiqgzHm70gP0 cUiQnZvS5WQsgXwf+Q1JBV0 ZPUkQsIEJSRUFOTkUgTUlDS EVMTEU8 N5YdWah1LJWmxCwzXZ9lgSO fMPtnWa4lwGlfiOwyYV9aJA HibpflEDJjmE6eYIOkqVDmk WopQU2j BWKtlpkoh640JuZuYMP8MRL mfIBbV6CgdJ1vRuXfRAPpUJ UfS8ShkMZbEQhpA518ZHcpY aH1LAOk qjKnH8QhMCGvqCekKvW5g8J 5Ue9aMu1uMH5sJEm2TL58TT 42dBZoa5Z7xPI2R3JkGBXjy mctcmln uKK6TZJuLNStrE04hXGxKIf sUd3ef5S0r986WOQvULLoxV 32Je2hdNjhAVPrjIJYrV6df naoo2jf mymaWkFbKGWgWCe5BCe0LNN aoRbkKtNiVGI1KyV7MTX8xN WleR4ceGtaazyzwV8xZnb+M jYgWWVh cdM4V2SwSsn2WYDceHnwQZ0 dmKWlNKwhBo2htXijuCmsFI 0wJAQywchsHXCzkX0iXTQbx HRvbTog AZ1uMNJpmxrjl847MbXrKDS 3GPTlaWZtS0NdkG5vNhLtTO PlIETaO2IoyHOjCAduF398R GxlZnQ7 EXAvylTcH4RhMYJzhHtdQqY 6l6K3Hg8YZL4NGKO3F1CbVc x4PGCjwOoeET5eyRYyQLonA m6jlSln eQmcCN1vTONwbjjqYUHsnB5 oHCYmfGAjsSwnQP3wRKKwiv wik766DwBzDVN4RCUldSYtF 2HvtA2a JoVfRJWbCGJuN5GyyHJiGXh rT381HEcmQrL9RYNvmfMtE0 KaHAEbmBvpCnU2a2M2Zv9FQ DwvdGQ+ GN01si61D2EzRyppImr5OOD cLLA2wZC3yG5eTAJgSIqpl6 Y4aSA6S2GiczAtvv9ip3wgR XBzZTog A86nkGYna1C1UBKwfCP3XQP gqSatIgCfxS05Jfy+PGNvbG tez1BpFppjm8upx7drmCn1E jMwJSIg wkTdnJoyWRJ6h5GdHk32K68 sIHdpZHRoPSIzMCUiIHZhbG spii2sdE5cIt5+BKFezUO6h VF3nM8u ZiRqMcI1BAbcR544MpFeoSM rVfhds5bws0bgmEh5VxOxOW OunaMyaGnkMFC7q5RvVg30B 2NvbGdy p2NyMcu9is09jJFpg9I4oEX 9T6NzIMWbccgdaBWnpVggMM 3yKCJnhsobEHGvzX1iPWWxW 6g1FuWk YzN4QSkgE8CxmeJ1ERBqtLW tEEQcoWIPtD8urvhnw2uqbo nrYxCtRRRwJIk2AWq6HEDxg WduOiBs NJF7WqK9ZNQ3oSMhhA6wsEd ecrmqcA7hAwb+BAb4t7sdmA HbME0gkTL1YL66QP43eMTfy 3Y2gRY0 R3FjASEaaadqttmvqIP5ORC dWHAoaC71Yi7hhEtjUy8rYC RuAYT8XPUfcCMdM6KtqQ0pH iAjMDAw HBEnA0DihVZyLVspP419MGf wSjG7TPRuxbQoD9PlBYEbsB foQkS6i1V0Al0DRB37SH55F I95kSWg z3W9qBE8D7XmTAJoxpedwxw slBQ7IRCvUEMxuP16No3nnH nnKj1nCCYbPPZ1ZJEwaNTdH 8SgkU7z YnZjXPGrVNAeU2RezGVdTUu kC070LNnyDvZ7DCHhkuAiJ9 TaEVFniJrpKoH8q5M2Iq9BC y71ZD52 KM55xTOcj4S5eFH6K8AwMNK azihfcuinpKG0AATpQRPnmO 15Wc6amSgaOb2oWAElFAN8F FRpbWVz C6IpiN0bBtKlVQWkMUBnM5D hzIMmNNzgG000POpsJaZ1ZP XgjcByY5MjIQTgbYbbJkO1a 2S2Ki9L QBqyzev7C4KeSoorhAV+PC9 4CSHuZU95hGBjpUAuq1zkdO h7XeYaRQCeZTY9oDpeAEgzr 3JkZXIt Y29 (more content not included)... Normal [facility] Urinalysis macro (dipstick) panel (U)on 07-10-2024 Bilirubin, UA Negative Negative - 4(70) +++ mg/dL [facility] Blood, UA Negative Negative - 50 Osvaldo/mcL [facility] Clarity, UA Clear [facility] Color, UA Yellow [facility] Glucose, UA Negative Negative - 1999(110) ++++ mg/dL [facility] Interpretation and review of laboratory results Abnormal [facility] Ketones, UA Negative Negative - 160(16) ++++ mg/dL [facility] Leukocytes, UA Positive Negative - 500+++ Edison/mcL [facility] Comment on above: small Nitrite, UA Negative Negative - Positive [facility] pH, UA 7 5 - 9 [facility] Protein, UA Negative Negative - 1999(20) ++++ mg/dL [facility] Spec Grav, UA 1.025 1 - 1.03 [facility] Urobilinogen, UA 1.0 0.2 - 12 mg/dL [facility] ED Clinical Summaryon 2023 ED Clinical Summary [facility] ? Urgent Care [address] [place] [id number] Clinical Summary PERSON INFORMATION Name: SHERLY ASTUDILLO Age: 24 Years Sex: FEMALE : 2000 MRN: Acct#: Visit Reason: Vaginal discharge; VAGINAL ITCHING/DISCHARGE Arrival: 07/05/2024 10:15:34 Discharge: 07/05/2024 10:59:00 LOS: 000 00:44 Check In: 07/05/2024 10:15:34 Checkout: 07/05/2024 10:59:00 Address: [address] [place], [place] [id number] PCP: Radha Gomez MD PROVIDER INFORMATION Provider [...] Location: Home PATIENT EDUCATION INFORMATION Instructions: Vaginitis, [id number] Follow-Up: With: Address: When: Radha Gomez [address] [place], [place] [id number] Business (1) Within 5 to 7 days With: Address: When: COLE ALONSO [address] [id number] Business (1) Within 1 to 2 days DIAGNOSIS: Vaginitis Patient Understands: Yes - Patient/family/caregive r verbalizes understanding of instructions given Comment: Normal [facility] ED Patient Summaryon 024 ED Patient Summary [facility] ? Urgent Care [address] [place] [address] PATIENT DISCHARGE INSTRUCTIONS Patient Information Name: SHERLY ASTUDILLO Age: 24 Years Date of : 2000 Reason For Visit: Vaginal discharge; VAGINAL ITCHING/DISCHARGE Arrival Time: 07/05/2024 10:15:34 Primary Care Physician: Radha Gomez MD Attending Physician: Spenser Fang Comment: Patient Education With: Address: When: Radha Gomez [address] [place] [id number] Business (1) Within 5 to 7 days With: Address: When: COLE [facility] [address] [id number] [email or web address] (1) Within 1 to 2 days Vaginitis [...] and use condoms. General instructions ? Take nach-wkg-dtaqopu and prescription medicines only as told by [...] provider. Document Revised: 02/19/2021 Document Reviewed: 02/19/2021 [employer] Patient Education ? 2023 [employer]. Medication Information: The exam and treatment you received today in the [facility] Emergency Department were for an urgent problem and are not intended as complete care. It is important for you to follow up with a doctor, nurse practitioner, or physician?s hotel assistant general manager for ongoing care. If your symptoms become worse or you do not improve as expected and you are unable to reach your usual health care provider, you should return to the Emergency Department, we are available 24 hours a day. For those (more content not included)... [facility] Urgent Care Note- Provideron 07-05-2024 Urgent Care [...] History Medical history: Resolved Ankle fracture, left ([id number]): Resolved. 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 Surgical history: Cholecystectomy ([id number]).. Family history: Anxiety Father Sister Diabetes mellitus [...] doctor a (more content not included)... [facility] Urgent Care Recordon 024 Urgent Care Record [facility] ? Urgent Care [address] [place] [id number] PATIENT DISCHARGE INSTRUCTIONS Patient Information Name: SHERLY ASTUDILLO Age: 24 Years Date of : 2000 Reason For Visit: Vaginal discharge; VAGINAL ITCHING/DISCHARGE Arrival Time: 07/05/2024 10:15:34 Primary Care Physician: Radha Gomez MD Attending Physician: Spenser Fang Comment: Visit Diagnosis: Diagnoses This Visit Vaginal discharge ([id number]) Vaginitis (N76.0) If you received any narcotics, [...] documents With: Address: When: Radha Gomez [address] [place] [address] Business (1) Within 5 to 7 days With: Address: When: COLE ALONSO [address] [id number] Business (1) Within 1 to 2 days Medication Information: The exam and treatment you received today in the [facility] were for an urgent problem and are not intended as complete care. It is important for you to follow up with a doctor, nurse practitioner, or physician?s hotel assistant general manager for ongoing care. If your symptoms [...] can reach you if necessary. [facility] has provided you with a complete list of medications post discharge. Please inform your elocution teacher/provider of your visit and for further instruction on these medications. Any specific questions regarding your chronic medications and dosages should be discussed with your primary care physician(s) and/or pharmacist. New Medications [facility] [id number], [address], [place] [id number], [phone] terconazole topical (terconazole 0.4% vaginal cream) 1 [...] ? Eating food (more content not included)... [facility] ALL CBC WITH AUTO DIFFon BASOPHILS ABSOLUTE AUTO 0 [facility] Basophils/100 WBC (Bld) 0.3 % 0.2 - 2.0 % [facility] Eosinophils/100 WBC (Bld) 1.2 % 0.9 - 7.0 % [facility] Erythrocyte distribution width (RBC) [Ratio] 12.9 % 11.0 - 15.0 % [facility] Hematocrit (Bld) [Volume fraction] 40.3 % 36.0 - 48.0 % [facility] Hemoglobin (Bld) [Mass/Vol] 13.7 g/dL 12.0 - 16.0 g/dL [facility] IMMATURE GRANULOCYTES ABS AUTO 0.06 High [facility] Immature granulocytes/100 WBC (Bld) 0.5 % 0.0 - 0.5 % [facility] Interpretation and review of laboratory results Abnormal [facility] LYMPHOCYTES ABSOLUTE AUTO 2.5 [facility] Lymphocytes/100 WBC (Bld) 21.2 % 20.5 - 60.0 % [facility] MCH (RBC) [Entitic mass] 29 pg 26.7 - 34.0 pg [facility] MCHC (RBC) [Mass/Vol] 34 g/dL 29.9 - 35.2 g/dL [facility] MCV (RBC) [Entitic vol] 85.2 fL 81.0 - 99.0 fL [facility] MONOCYTES ABSOLUTE AUTO 0.4 [facility] Monocytes/100 WBC (Bld) 3.3 % 1.7 - 12.0 % [facility] NEUTROPHILS ABSOLUTE AUTO 8.7 High [facility] Neutrophils/100 WBC (Bld) 73.5 % 43.0 - 75.0 % [facility] Platelet mean volume (Bld) [Entitic vol] 9.5 fL 9.5 - 13.5 fL [facility] TBH EO # 0.1 [facility] PLT 378 [facility] RBC 4.73 [facility] WBC 11.8 High [facility] Outside Recordson 06-11-2024 Outside Records [id number]#[id number] [facility] Coding Summaryon 06-08-2024 Coding Summary [facility]Base 64 OwmxfbdzQCs8eDk+PGhlYWQ +DV9CXHIfF03lfKHjqG1bT3 NMTElOSywgQVBQTElOSyIgb tGgIU7rrXQnCOSz IC8+ME2jMHOcLehmgUKih5P 7zBC6Q99ugq9oNMybkWY8RI ZqNqVmfsfmh3urbEl6KIuhB mluOyBt GTHxpY46TZH0oM00Fs39nTL pyWGkt1hudCm9DkFaRLMsIP Y5uCcfZVcez0YjANSbC49mq IXsb7E0 WSVywIlvaEQtLkGyuHE0fK1 mOVlpnptov4sruamoZca5sa 88pPQiq4B8iHW5V9ZxngH0A GJvbGQg TkuuxQEBwX4gpyonx7unxtw cPaDlAROyKYf8DJp1METpnZ sxSoFbCX78DCA8ZWZhejTmF 2FsLWFs hYqpXjP0b0I0Ix4UO5RFXhc vI9LHWOKGIRjguAI+PC90cj 45Z6XcPgqzGfw2SMCgQFO0m HA1fO4s HMByPCuqa3S1cUF4L1BybkO smb1dy7dgLZVxYAcpO30wiY Gyn5R4JDZtgYY4TKAscPfvE iBzaG93 Oyc+HDStaLyri5LpJvwnp5i zu0rwwXl3CzdxBLBttaPfzP kcEIV5l1NvVu3rTPYsmUJ8w VF4fF3p UqEfSgU5LVodU754LtOyvVN jUqfrR72oQ5DqbBB+PHRyPj n4RIJumErrLJ2iZ4OkVWUgg mctbGVm pYloMS1pCPDlojnlJXHurB8 vHSTsZ2p2HeFvEjP3NZjsQ9 UpZFVswunaRt23uI7qZpJqR qU1YLmc S1YbheQ7VQWocYEvCNndQHF 3N11ac2R1RCSkSASwLQF3xK B2jC5ddXfkxeeyaGWonUxti mVydGlj EGffJOibT020KLZznJrnEwP vZGluZyBEYXRlOiAgMTAvMD QvMjAyNDwvdGQ+IOAaJZG7k WxlPSAn fFBcDQtwBm1iaLareIeoAP4 eCEMmeymmQXOjiC9xCEKxcH ScoLzuJG0kXNDdkcvvh206T iAxMHB0 OTIglABaX2DxoZ8tRdZoOJY oGCQsS2SucRAcCGgiA303HQ cyMtS5FXGvdtFnE8QvYGNms WduOiB0 x3S2Pi8Kn4ToktubV4DpfNZ mQzNrKjzgMHy9W9ImVioglA I+CL80DQBuNR87GZm7ABX3d WxlPSdi DIKhC9XiyX0zZeAxJYRqPBK kOyc+PHRhYmxlIHdpZHRoPS eqMNKqAjLsrYjeXU2bFy4eV GVyLWNv rYexmODxThXzu0zqFKTuGGl sGO5blMsdX3RkxTE8JMEgz8 a0He30G44kS5CxdGR+PGNvb EF5zEU7 gE3nYcTgFzG7SLwrG248QwW pbWAaAalyv6jem8zmwIg7Mi I3MHEnptPzfCzwFOD1o2ChY u51Z56c IHdpZHRoPSIxNSUiIHZhbGl jhf1mcZ4kIx3+WATwaOR3bC O7rA5cJiCcYtE2UDzkP187R nRvcCIv Luava1uhn1mziUs4YnUpMHT qiaHxeSttUMV4q1GrDf26B6 ZewOwvu5IzGhz5tr48gTBiq 6E7eKJ9 V5KnNGDvedsluBWnpXjcGM8 jIMWghykbMQCshZ7bNILfS2 c3DgWoFtC3UUriD7WylbY0L GJvbGQg IGOufMWOwW6gazxup4lfgal vAhXxZETeCTf6BXt8GAOuxV zuYjApXSL1HkX3FHG0lJQdr R7wvIva xdojjH9jYjq+SJU7hUPprHO KTJ5yWgnscQA+RUSpTSD8iM anYIyiMESzyU1kZAZbM8k0G iAwLjA1 NNgpF9VhlvO1NZXuiEPfRLT wjGQKqM7dpfyyv1tbyobwXh DpSJJcNZb0LZt5WXPpxLcbE iBsZWZ0 KiP3AIO3nFQdeV0fhJsfunv igV0uEik+YfoqqGpoXGT3KR j4P7LtNsu1VNPgjSojKR7oi GFkZGlu Tq1lzWkkuKknTI2lWTNvahx qe625FyDva8jmQZOicNQlKO suLUD7X25rv6Q8KSBrBIDlU IH0xGX7 qC4tnRalgpvlfMJtwPaiviE vuSuqEHvjWBkaU832EPCtoV ruOiSyCFj5S5ZlZex9HRHip TlsPZ8c qGNbHDyiFh6dwTlllEhmIJ9 wTBTiptwpr728TrWtm8wnBR JxnRXaTTbiHYM3W29au1K8E CMwMDAw PGN4mZR0uC0byFevmykfxXG mdDsgdmVydGljYWwtYWxpZ2 71TVNaaRjdPlFodEl6U4WxL bv0XXPm aVouAQ0kgMZtKKatFi5doCy tbAjsMX7hUQWaxurks306Mp Lgi1yzDVJeyPUcMQudDFS9I 35ih6N4 CONrJKAuLTT1aCZ6lQ9cbRu nbjogbGVmdDsgdmVydGljYW qvGTmtO782MNGfwPhtCjLem GllbnQg LKcyTHh5O2RhIkpduAQ+PC9 4WPCbQK72vXFstXGwt1yhsQ j9HjNmVNAtGPX6kDmbMYbxu 3JkZXIt H00acLFaz2O8GDWwrDdlzRD oNgSaeCP6aI0sALpkkuzoi1 gzfyrpNxjks5veti56mS51N 29sIHdp ZHRoPSIzMCUiIHZhbGlnbj0 phS3kXh4+GZNohFG0rSA2kD 8eZGMtUjK1XYyjF054PnBml CIvPjxj g8rbd3jxaQe3IsP7EAIsueO auHkrDQM8s9JoLv25Z96uTP dpZHRoPSIyMCUiIHZhbGlnb h7gaC7q Ii8+RJCrbII6aDE3xL1kWnT fJbS4WPgrT355NgFevVJaRm dvY70aJ6PedIE+IIGrPge4K CBzdHls OQ0tuTYaDPznEm6bSIH4NrS zCpMoEHhvG7ZsCNImdpoydi varAV5JHCkUKDthV47Wu6vf DogMTBw fNFBmT3tnzlfd3emvqsxRxU pOGXmTAx1WUn9WDEblAkbHn KmEUB4GpA5FEV4tVXudK8tn Glnbjog jZ4tH4WtPZCnqxwxYg57oD7 tWwYpAtJ2SUpwIwx+Q1JBV0 ZPUkQsIEJSRUFOTkUgTUlDS EVMTEU8 P2NhHqk2KSJdjClaNL5xaDB qGIoaRh6yzYjnfRoxXM5eSM QltdvrHONdrR5wKROktJUfv KsrOY2a VMJeqkels038VzKaSFK2JCZ roCRuR6AhjA1nMsEjBWDrSC AwJ3TvzDMoBWwiS656VTvqH cJ4HVKr qaEoQ9PxNFEfzNmeCqX6g0E 0Oa6aFp8hNK5wCDt6WA41QX 52pILwb1N9oYM5Q1VpDSAnw mctcmln sPX5METrLUVmdP01zMOxTDp jPo7um9A0i645ZNEjNHIujQ 39Kj8snMrtORYcmMOGiK3jt ftae8py wunaGkChJUZrGMs3VEz2TWH waUmcVkCnMOJ2FhH3FRQ3xP ImoW0edEjtgwsfnU2vMvi+M jYgWWVh iqG6O2FqPcw2AGAaiFcxLX2 akLLyZHdyRv2hkGrbsQdeFQ 3uRLXidjtpZWRtlU7uAMYiq HRvbTog VD2kYGOoedmar374EgByVLS 0CFEeqOOzZ1BqwV2eKyOyAA WrJGHiD6GubRMfJFboP107R GxlZnQ7 PDNgefSqI6XjHVIdcMerBdN 4s0F5St7TBJ7UQTY7G7IbHc n1TUIsxRjkOS9mdLQnJMltG v6rrYja qVufXX8vIWTpoyjzRPYsqE9 yIPIfqEBjoFyfTW5wVEMrpd aci938SyVaXDP8FFZeaRHbW 4TzxH3y RtLfNGSsWGPwP8IwhKAeZJg gK401QIxpBaW2HFLlvzRdB2 NnMZXpeKkbOuS9b6R3Qh8Sg MRaN2Uk D8n1J4HeClurqFS+SA93YFU nMK39bMPodEFtb3phzGa2Pw DeXDQcUOE8iLapUKqxy6EuF LKfB99n dSMic4X3GNRpaGkkyIBvTjI taBV3kT2vTDzacotcl6txld fzWaizq1dgkf40iR54W96mU HdpZHRo HXQiJSFeTDRqhZbbhi7svB9 wIi8+QTYuaUN3aON7sA0pFs RfPaO4PPogH530ZvTqkCYtE pots6jt k9mywKv6TwChVRPwxlSjiVe nYGA4a4TbKz63J69mSLysTI KlEYBlOYWrTASyaEkqzw6jv G9wIi8+ SH9ur1gqoo13jA42uXR+PHR bBYL1dAlyYHytYXQkiF8jUC buDzN2BUYjAwEprV77oSXjK AnjLf0w sKtdiXnkXA4qGIUycelia78 4BbHgg3irRRJatLOkOZvmTN G1K63zy2Q5BZZnPNXrYPH5s QI9fG6u bGlnbjogbGVmdDsgdmVydGl vTYxyWWowT508YZSvpMofPh ToeEVdV7ojgkUFZZ9vIvykj GQ+PHRk MXV2hLkaMCqaZWBgmI2qSPR iC4q2JjIfDtH0GNfbJ8Gtdc L3BUApjBJyETYcpVNNlW2xi tiyk5hf uipkPkCjPLRwGTa9MBx8UQD qpGzqJaFtCLP6ZfH1LTT5mA XuiI9kxFwnbqlypP2jBqm+R klOOjwv dGQ+QTBgATW1aNudFXlbJPR kiQ2rQEQvA9z7OjEyClR1VA nqB4HbeyQ2YSNmzFNaSVTcx TOOsV1i yzjju9yiemxxWdEaWGAuWQz 7TQc4YZJpuBwgIhNgRPX0Hm L0GQV5qTOklZ5ltTndhhrhb G9wOyc+ TVJOOjwvdGQ+FFWnLSK1jXc uWNqsZAWdbG7tWFSnZ1b9Wh IgSxP4XMmfU0NvhdO5QSDga GQgMTBw dXLGqI4hgvzyi9xuwencTnI cJMKaYNn3WAe7WCPgtXicGx YqOSP6UwP4RFF7kXIsvS1em Glnbjog fS7cPvo+YKS5AGT8TK73RA0 1B0ThJlnzeOZniPD+PHRhYm xlIHdpZHRoPScxMDAlJyBzd XdlRA1n Ym9 (more content not included)... [facility] HCG ( test) Ql (U)o n 06-07-2024 Interpretation and review of laboratory results Abnormal [facility] Preg Test, Ur Positive [facility] Urinalysis macro (dipstick) panel (U)on 06-07-2024 Bilirubin, UA Negative Negative - 4(70) +++ mg/dL [facility] Blood, UA Negative Negative - 50 Osvaldo/mcL [facility] Clarity, UA Clear [facility] Color, UA Yellow [facility] Glucose, UA Negative Negative - 1999(110) ++++ mg/dL [facility] Interpretation and review of laboratory results Abnormal [facility] Ketones, UA Negative Negative - 160(16) ++++ mg/dL [facility] Leukocytes, UA Trace Negative - 500+++ Edison/mcL [facility] Nitrite, UA Negative Negative - Positive [facility] pH, UA 7.5 5 - 9 [facility] Protein, UA Negative Negative - 1999(20) ++++ mg/dL [facility] Spec Grav, UA 1.020 1 - 1.03 [facility] Urobilinogen, UA 0.2 0.2 - 12 mg/dL [facility] Coding Summaryon 06-05-2024 Coding Summary [employer] 64 GvfsmmulZUz5wVy+PGhlYWQ +RS6BCZAvJ94raMSmxR0iX6 NMTElOSywgQVBQTElOSyIgb xBsCR0apEJhBEBq IC8+PS2fJDZwIrtppMVxk5K 5zWW2A05bxy0yPBkccWT9MV PbHnJdmryue6jkzIo3EIonM mluOyBt NRYllZ81RYW9fU28Uu95bCW mnTStx8cfjEk1BbVkIXVyZP X1wZvsLIimx5FyKCBnD02ce BIrx9Q5 HVOidNhfxLAxIyOxzEB1xJ5 wPRoklxbgz1muorahUql9nr 09wUCuk2A3sRT4W8GejmW2T GJvbGQg NcarsYPBuZ7ignaqu8zreal aXjXoXCCbYFe4ALs6DGUroW hbHkFgUW27IYT8TRNglvXxX 2FsLWFs kMafHjF2f2V1Oy8IW6HVFwo sW6MWVDPJMShsfOS+PC90cj 59H9VwZaxfVqx1NJQzDYV5q MD0eB4k RYFyNSnym0W8mWE7Y5BlspT aff8bk9keKSEoZSswG34klX Tmi6Y6QLJvlMK7IKSbkPafB iBzaG93 Oyc+BDEcxQagt0JcKksch8d ox1rgpBp6RgguPCZfddNeyP woROJ6m2QsSq9yCCXcpHT0x BM4pO0b NhGeEuW0PEsfF816HyTyqHH cEygkS97fC5ZiyBL+PHRyPj d3ZDRqsDqiVY9vI9HrLJVcs mctbGVm jWlhAH9kHQEepntpWLHjgS9 rYDWaL7c1DwVaVzC6JYpgG5 EyUHCctnrqTe15bJ1sTsZwP rG5RHtz D4CwyiC3MUGaeBVgCHdrZDE 0S34mh2P9FFLlNBInQYW9iV L6yY0ngUttrlmsvBNlnZhzf mVydGlj INcgOZcbG620POEerTehPmU vZGluZyBEYXRlOiAgMTAvMD EvMjAyNDwvdGQ+NPLgORQ5n WxlPSAn pZRvKEjvOq4wpEdmvWivUK5 nNINarzzhWPIdgD2pOLHioW KveAieUU0hZGUxfciaa552V iAxMHB0 OOFptSGgB1IhsP3fHyFkFWC mCLNyL7XyoDHuILseT423RQ xbVcU2JNUbnoKgN1RiUQNot WduOiB0 w2C7Gf8Fg0QhkoypK8ToyYW tAxNwHmylWTy5B6DrLbfidI I+ON67RJXiZW49EZv2LBI8j WxlPSdi KXGhP0CzfH1rWzJjFTGyUJG kOyc+PHRhYmxlIHdpZHRoPS lkKSApXaDwlTofDI3oJf3nX GVyLWNv wGxhxULmZgYdm2rpCTHrCZw qGH5iqUfcY4CxhUC1BHUhu0 i4Mv14T23cT5JkiBZ+PGNvb RV4gDH7 vQ0iZmWfWrT2JTseN157KuF zsQSgAwipk0llt2fwzXk4Ut W9YSLtxxExsDvuCMF7h4AoH i12Z43e IHdpZHRoPSIxNSUiIHZhbGl kqp8pfS2xFy4+OGVmpPK1tP F8jV3aTjPeOnW2QIrcX445F nRvcCIv Mjnxa9oeb8coxKb1ZbAlQVV jvwFneYtuAPX9c3QySh42N2 JwbGfxk2XyEai0jq71mKBvg 9I6vAS7 Q0TpGJPjutmstWNmyXajLQ8 hGPDvctsvUUPtrT5pBIUfQ5 q2QxXsYaC6GKayB2AxacR3P GJvbGQg OPUdjBYOkV0yzskep9xwdka fOcDfZCStXOt7CRk9QDKviS miTzLzIBZ7DaO1MTN4xDShh O8kpVrp fxgffU8hEtu+ALV4cQCptFX QOO6fLhytnHB+BTPnSDM4nC zePNydAXSvtB1sMGWxX3p5F iAwLjA1 YLjqL0BnwhB0PHTbbCElNCN vlBWVeT5wstymz9sbfjjcQo DyJYPxXFq3PJn2GLHhxNhfT iBsZWZ0 CcT6LSI6iMFgjX8nhVbjakn frP2sMsf+SybhtRzqGSA3XV d0C2YlUck7VTSdmYksHQ5el GFkZGlu Zn0feNlkcGszYH2uLNOfswl ff264IcBks4gmSQWkgCLiTK cpCRS5C29ks8S5ODCfWWBxF DV3aXU7 zT5buWrxbsekiFPbeWkxpvJ nxXptSSgiZXgfM709NYIpxR xgAfLzKUk2F4JiWiz9OWXxt DtwNJ2o aFMjBFnrZv6woWzaqSsjVC0 dZEZcsdfzc221RoUtt5riMR CyjNWeEJjmOAR5X14br4E1B CMwMDAw ZVC3gDP5xO6lwWiauchtkIS mdDsgdmVydGljYWwtYWxpZ2 72SYFjwVkqRsZmwJy2J4WwC be7BZAx uPrwSV7rrDUwIJpeFg0vxGw mkKnhSJ7jHUPsoldkd400Xa Jmz8rzIOAseUZcHZlkRQP5L 71gl1V2 QUXbMDHaLGA5oNA7vE1amGq nbjogbGVmdDsgdmVydGljYW jpMNpmJ036TDGqaFeoKvKgj GllbnQg XHekNPm3V4RiGpejvGM+PC9 7ACFkBK30xRGeyHIyk1orkD a5HlAyDJSdZAG6tKpwILjno 3JkZXIt K63hxYIav6A8YBUouMabmMV tYfAdlDF0hM5aRSfbfgyum7 rtqmbdKhrov0wvyf57oH26U 29sIHdp ZHRoPSIzMCUiIHZhbGlnbj0 ofB2vWd5+MKRxqDN8hDW8rM 7mIGPtGhN0VNyzL518TpXij CIvPjxj s1qfh0lkmHt5CqD2XBClhvY drWevESB7o4YkMx10V73fOQ dpZHRoPSIyMCUiIHZhbGlnb e9flA7f Ii8+SOIbdFB8xSM2nA0kKoW dDqD9RTiuW738JuYstJGhDd faB20hF4FeqGM+QYYnKkg5B CBzdHls QF5jiGXoECbkNm2cMMD8OiR pSrGcYBcfT1DfLRMywsqqix cqaVE1WLEfRVTsiY56Ix8mu DogMTBw kVVFgJ9ekujgp2oynuczXgP yUAYdWMh5BNs6DBWqhIetMr PoLLJ0HdN5HMT2tHXpqP6eg Glnbjog pK6kS6MqAYWgqcaiRc62pH5 vHnBlYkU8EMazGmr+Q1JBV0 ZPUkQsIEJSRUFOTkUgTUlDS EVMTEU8 B9ShGij0FXKozZowOY3raTH xIZtmXa6twKiqoNpbPN1aII XneenzJHPbhR9mZAYgoMDse KofKG1l MDNpfvnvd067UaEqCPU6KSD guHQwJ5MqaW6dWvVtFGOxOI MfX9SrsJSvUVdkD975OXluI wI5MTHm jmJfL8NpRYPyfLjyNgA2i8K 5Ls5aPy3dWC0aLMw2NB69XI 42uHYlx8E7eLR4H6UqCFJkj mctcmln bVL5HAOjPSChrN89eCGoOQs hDp3hm6P5a889BRCsCIUmzI 73Ws0ckOigPULmzKTZqM9jz vdoo9zh xsfyKuAdHQXmWAv3IFx8RSX zrVmcQvDlDNS2IsK1MCN2qG UcbT2wnOxhltkehZ8bBul+M jYgWWVh fnB0P1NlMah4XABckSvzUF4 tvRYtJBctFv4cvIgpeKxbWS 5qLGNmodgaOKAiaX5yLTJnt HRvbTog JB8fQYAvfxfoz130DnFcHXH 6BLRneDTaD6WxhC1dHrWxOR RbVOAwA4GjeEWlFZvkR593V GxlZnQ7 WEPqbxAeI4XnPUKwzLlpQeS 5j6D5Np7LQS2ZJIJ5T5YhCn c1XDRngWziWN0pzLIwOHtbJ g0jvTuf oTlbSB4wDEFketmwVEWvoW9 qJIBqySBszQkxMQ2oFLEbxt bjx514NvQfLWE5XYIemXLvK 5MovF5o MwUoEMPhVFDvD1AqbLXsOAl hX693WWbjKgF9ACPgotUgN7 AoTRGezNbeJfT1c5M3Mh9LB DwvdGQ+ WX44cv61C8IzKlsuNsp0GWZ cAPH0yBU0sY4kVXXaTGndi9 J5kIX9X5MbvoPsto2og5tfC XBzZTog S61kfVTgo8C8EGLahXK3DIA akVxjIoTdmA71Ofx+PGNvbG nzc4JrZrorn0jyq3plqCy2I jMwJSIg kmLdkDkcDLZ9g4KuVz94X10 sIHdpZHRoPSIzMCUiIHZhbG xnwv4azU6pHt1+RDTsmSM5b JX1nU2b NrJsHkE9EAerS399YqZnnZU jEtyyu1upy6npjLn9SiIlEX ZnvsUqtCphDIU3z0ObUo22V 2NvbGdy l8ZxUfi9ec58yDLmz7W2dSB 1T7NpORTkqtygjXXagFgmTK 3vIHXaxzllLHBzoY9oMNLuG 2o7OkWf AoQ8AYnqP0AoagK4XJWflUV iMGLmdMEEyU8tbjidw8izbs tlCfCpLIZyCWt7JIu7ZOOdn WduOiBs HVH3TcL7FVT2rBIguW8zmIx lrmuuxR9qJeq+LGk1j1gxfZ OxTO5ydJD4LK59CB16tMVbd 5U6yCU7 O7PoTVVocagwumwmmBV0WNC zFUNpaV63Yt2eqBamCl9rKD XaPLP3QTOdkBNcY1DonL2kR iAjMDAw DEJqV7FteMPlNWhpP658KCz sPcI7JZNfxrRbD0JcOCXrmQ jtRtZ6i8D5Tg2DMI28OT62U N14rPYi g1C1kSG3T3QnQNFxuqsjfvl tpLU3QQXtDDHhmU48Sc7biY hlTz7xMSYuHKS8JWKdkWBhM 8UusU4u KmGhSOWaYJAdA2TdiFTfACc pZ299IBlqDjI0PPWqsrKhS2 VaVZYsdMxhOtS5d4R6Hl6JY j02SC39 OO18qQUhu6V8vCE0I8KbIZU nknhptfornQG0ALUrGCBumX 99Wx8loRknRi3sAFSaUFC9N FRpbWVz G0IxzE5iVtPuDVAgUSYdO1T vwRZdZPaeS965LSihOvP5FQ KwsmPtL8TsVBAfxUcwJvA0t 2D1Qs4M DWefaoz4V2KePousmNR+PC9 5YJFaXN64jPFqeSLlt4uiaZ r1EkOgUMTnEPK4pKgkEDmrb 3JkZXIt Y29 (more content not included)... Normal [facility] Office/Clinic Noteon 024 Office/Clinic Note Patient: SHERLY [...] 113.040 kg Body Mass Index 39.11 kg/m2 [place] Body Weight Calculated 61.437 kg BSA Measured 2.31 m2 General: Alert and oriented, No acute distress. Musculoskeletal: Positive point tenderness over the left gluteal region as compared to the right. Positive straight leg raise. Positive piriformis muscle sign with external rotation of the hip with adduction towards the opposite shoulder.. Impression and Plan Diagnosis Sciatica of left side ([id number] M54.32). Plan: Discussed with patient stretches she can do to help with her sciatica. They were demonstrated in the office. Will hold off on any steroids.. Orders Orders Evaluation and Management: [id number] Office visit - established pt, Level 3 (Order): 06/01/2024 13:28 EDT, Qty: 1, Sciatica of left side. [Electronically Signed on: 06/01/2024 13:56 EDT] Radha Gomez MD [Verified on: 06/01/2024 13:56 EDT] Radha Gomez MD [facility] .Auto Diff 105-28-2024 Auto Smyth % 5 % Normal 09-16 [facility] Comment on above: Performed By: #### 1 [id number], [id number], 3195086, [id number] ####[facility] (DEFAULT)[address] [place] [address] 78977 Baso Abs# 0.1 x10 Normal 0.0-0.2 [facility] Comment on above: Performed By: #### 1 [id number], 6860897, 6286060, [id number] ####[facility] (DEFAULT)[address] [place] [address] Basophils/100 WBC (Bld) 0.6 % Normal 0.2-2.0 [facility] Comment on above: Performed By: #### 1 [id number], 0523055, 7197672, [id number] ####[facility] (DEFAULT)[address] [place] [address] Eos Abs# 0.3 x10 Normal 0.0-0.4 [facility] Comment on above: Performed By: #### 1 [id number], 3184752, 9904963, [id number] ####[facility] (DEFAULT)[address] [place] [address] 01171 Eosinophils/100 WBC (Bld) 2.5 % Normal 0.9-4.0 [facility] Comment on above: Performed By: #### 1 [id number], 8784800, 9758116, [id number] ####[facility] (DEFAULT)[address] [place] [address] 90543 Lymph Abs# 3.6 x10 High 1.3-2.9 [facility] Comment on above: Performed By: #### 1 0988236, 8573735, 9155956, [id number] ####[facility] (DEFAULT)[address] [place] [address] 41870 Lymphocytes/100 WBC (Bld) 27 % Normal 14-48 [facility] Comment on above: Performed By: #### 1 8115705, 6544333, 1647407, [id number] ####[facility] (DEFAULT)[address] [place] [address] 33945 Smyth Abs# 0.7 x10 Normal 0.0-0.8 [facility] Comment on above: Performed By: #### 1 7645913, 0470244, 1820649, [id number] ####[facility] (DEFAULT)[address] [place] [address] Neut Abs# 8.4 x10 Normal 1.5-9.2 [facility] Comment on above: Performed By: #### 1 0884284, 4580170, 3526903, [id number] ####[facility] (DEFAULT)[address] [place] [address] Neutrophils/100 WBC (Bld) 64 % Normal 44-88 [facility] Comment on above: Performed By: #### 1 4971827, 4415433, 8479676, [id number] ####[facility] (DEFAULT)[address] [place] [address] CBC w/ Auto Diffon 4 Man Diff? Auto Invalid Interpretation Code [facility] Comment on above: Performed By: #### 1 6357965, 7991094, 1258460, [id number] ####[facility] (DEFAULT)[address] [place] [address] Erythrocyte distribution width (RBC) [Ratio] 13.6 % Normal 11.5-15.0 [facility] Comment on above: Performed By: #### 1 3837870, 8431116, 9559881, [id number] ####[facility] (DEFAULT)[address] [place] [address] Hematocrit (Bld) [Volume fraction] 42.0 % High 33.7-40.4 [facility] Comment on above: Performed By: #### 1 3448047, 4607361, 7810442, [id number] ####[facility] (DEFAULT)[address] [place] [address] Hemoglobin (Bld) [Mass/Vol] 13.8 g/dL Normal 11.3-15.9 [facility] Comment on above: Performed By: #### 1 9153987, 4350394, 5400799, [id number] ####[facility] (DEFAULT)[address] [place] [address] MCH (RBC) [Entitic mass] 28 pg Normal 24-34 [facility] Comment on above: Performed By: #### 1 7053556, 4727057, 9611838, [id number] ####[facility] (DEFAULT)[address] [place] [address] MCHC (RBC) [Mass/Vol] 33 g/dL Normal 26-37 [facility] Comment on above: Performed By: #### 1 3833133, 6871320, 5785366, [id number] ####[facility] (DEFAULT)[address] [place] [address] MCV (RBC) [Entitic vol] 86 fL Normal 81-100 [facility] Comment on above: Performed By: #### 1 5680719, 6613010, 2404421, [id number] ####[facility] (DEFAULT)[address] [place] [address] Platelet 352 x10 Normal 138-427 [facility] Comment on above: Performed By: #### 1 5902296, 5958371, 7870109, [id number] ####[facility] (DEFAULT)[address] [place] [address] Platelet mean volume (Bld) [Entitic vol] 7.8 fL Normal 6.3-10.2 [facility] Comment on above: Performed By: #### 1 4885889, 6755086, 9076701, [id number] ####[facility] (DEFAULT)[address] [place] [address] RBC 4.90 x10 Normal 3.70-5.30 [facility] Comment on above: Performed By: #### 1 4173978, 6269860, 2420240, [id number] ####[facility] (DEFAULT)[address] [place] [address] WBC 13.1 x10 High 3.5-10.5 [facility] Comment on above: Performed By: #### 1 8727862, 9371975, 7626598, [id number] ####[facility] (DEFAULT)[address] [place] [address] CMP Standardon 05-28-2024 eGFR Non AA >60 Invalid Interpretation Code [facility] Comment on above: Performed By: #### 1 4276841, 8269269, 5651929, [id number] ####[facility] (DEFAULT)[address] [place] [address] eGFR AA >60 Invalid Interpretation Code [facility] Comment on above: Performed By: #### 1 1918169, 7884883, 6780702, [id number] ####[facility] (DEFAULT)[address] [place] [address] Albumin [Mass/Vol] 4.4 g/dL Normal 3.5-5.0 [facility] Comment on above: Performed By: #### 1 1129213, 8123236, 8077369, [id number] ####[facility] (DEFAULT)[address] [place] [address] Albumin/Globulin [Mass ratio] 1.2 {ratio} Low 1.4-2.6 [facility] Comment on above: Performed By: #### 1 7089388, 1591696, 7302195, [id number] ####[facility] (DEFAULT)[address] [place] [address] Alk Phos 46 IU/L Normal 32-91 [facility] Comment on above: Performed By: #### 1 1054634, 4282991, 8509723, [id number] ####[facility] (DEFAULT)[address] [place] [address] ALT [Catalytic activity/Vol] 29.0 U/L Normal 14.0-54.0 [facility] Comment on above: Performed By: #### 1 3971357, 8563630, 4884050, [id number] ####[facility] (DEFAULT)[address] [place] [address] 23945 Anion gap [Moles/Vol] 11.4 mmol/L Normal 5.0-19.0 [facility] Comment on above: Performed By: #### 1 3854830, 8421380, 8703148, [id number] ####[facility] (DEFAULT)[address] [place] [address] 60513 AST [Catalytic activity/Vol] 30 U/L Normal 15-41 [facility] Comment on above: Performed By: #### 1 7710349, 5595203, 2281444, [id number] ####[facility] (DEFAULT)[address] [place] [address] 04339 Bili Total 0.4 mg/dL Normal 0.3-1.2 [facility] Comment on above: Performed By: #### 1 5734416, 6422757, 8499723, [id number] ####[facility] (DEFAULT)[address] [place] [address] 83978 Calcium [Mass/Vol] 8.9 mg/dL Normal 8.9-10.3 [facility] Comment on above: Performed By: #### 1 1269889, 3000920, 4044316, [id number] ####[facility] (DEFAULT)[address] [place] [address] 93180 Chloride [Moles/Vol] 104 mmol/L Normal 101-111 [facility] Comment on above: Performed By: #### 1 [id number], [id number], [id number], [id number] ####[facility] (DEFAULT)[address] [place] [address] 45585 CO2 [Moles/Vol] 20 mmol/L Low 21-32 [facility] Comment on above: Performed By: #### 1 [id number], [id number], [id number], [id number] ####[facility] (DEFAULT)[address] [place] [address] 28189 Creatinine [Mass/Vol] 0.66 mg/dL Normal 0.60-1.30 [facility] Comment on above: Performed By: #### 1 [id number], 4151639, [id number], [id number] ####[facility] (DEFAULT)[address] [place] [address] 27518 Globulin (S) [Mass/Vol] 3.5 g/dL Normal 1.5-4.3 [facility] Comment on above: Performed By: #### 1 [id number], 1695462, 7304106, [id number] ####[facility] (DEFAULT)[address] [place] [address] 94250 Glucose [Mass/Vol] 100.0 mg/dL Normal 74.0-118.0 [facility] Comment on above: Performed By: #### 1 [id number], 3337937, 6928985, [id number] ####[facility] (DEFAULT)[address] [place] [address] 51739 Osmolality 263 mOsm/L Invalid Interpretation Code [facility] Comment on above: Performed By: #### 1 [id number], 6099708, 4672565, [id number] ####[facility] (DEFAULT)[address] [place] [address] 18998 Potassium [Moles/Vol] 3.4 mmol/L Low 3.6-5.1 [facility] Comment on above: Performed By: #### 1 [id number], 5436307, 0853524, [id number] ####[facility] (DEFAULT)[address] [place] [address] 61427 Protein [Mass/Vol] 7.9 g/dL Normal 6.5-8.1 [facility] Comment on above: Performed By: #### 1 [id number], 2041748, 3803768, [id number] ####[facility] (DEFAULT)[address] [place] [address] 16241 Sodium [Moles/Vol] 132.0 mmol/L Low 136.0-144.0 [facility] Comment on above: Performed By: #### 1 3228072, 3289435, 7739772, [id number] ####[facility] (DEFAULT)[address] [place] [address] 93671 Urea nitrogen [Mass/Vol] 9 mg/dL Normal 8-26 [facility] Comment on above: Performed By: #### 1 [id number], 2794904, 6961240, [id number] ####[facility] (DEFAULT)[address] [place] [address] 31285 Urea nitrogen/Creatinine [Mass ratio] 13.6 mg/mg Normal 4.6-16.2 [facility] Comment on above: Performed By: #### 1 9244911, 0651007, 6017192, [id number] ####[facility] (DEFAULT)[address] [place] [address] 66206 ED Clinical Summaryon 2023 ED Clinical Summary [facility] - Emergency Department [address] [place] [address] ED Clinical Summary PERSON INFORMATION Name: SHERLY ASTUDILLO Age: 24 Years Sex: FEMALE : 2000 MRN: Acct#: Visit Reason: Back pain; Abdominal pain - ; ABD PAIN LT SIDE, LT LEG NUMB Arrival: 05/28/2024 14:14:57 Discharge: 05/28/2024 17:55:00 LOS: 000 03:41 Check In: 05/28/2024 14:14:57 Checkout:05/28/2024 17:55:00 Address: [address] [place], [place] [id number] PCP: Radha Gomez MD PROVIDER INFORMATION Provider Role Assigned Unassigned Evonne Cheung PA-C ED PA 05/28/2024 14:19:07 Daisy Freire [employer] SALESPERSON Nurse 05/28/2024 14:26:14 VITALS INFORMATION Vital Sign [...] Home PATIENT EDUCATION INFORMATION Instructions: Muscle Strain, Bmrw-br-Nztv; Sciatica, Colb-ue-Lstv; Back Exercises, Fjnm-zm-Wmyy Follow-Up: With: Address: When: Radha Gomez MD [address] [place] [address] [phone] Within 3 to 5 days DIAGNOSIS: 1:6 weeks gestation of ; 2:Low back pain with left-sided sciatica; 3:Pain in the side Patient Understands: Yes - Patient/family/caregive r verbalizes understanding of instructions given Comment: Normal [facility] ED Clinical Summary [facility] ? Urgent Care [address] [place] [address] Clinical Summary PERSON INFORMATION Name: SHERLY ASTUDILLO Age: 24 Years Sex: FEMALE : 2000 MRN: Acct#: Visit Reason: UC - Abdominal Pain; LT SIDE PAIN, LEG PAIN Arrival: 05/28/2024 14:07:02 Discharge: 05/28/2024 14:10:00 LOS: 000 00:03 Check In: 05/28/2024 14:07:02 Checkout: 05/28/2024 14:10:00 Address: [facility] [address] PCP: Radha Gomez MD PROVIDER INFORMATION Provider [...] left flank pain; Currently Patient Understands: Comment: [facility] ED Note-Nursingon 05-28-2024 ED Note-Nursing Building Manager at bedside jimmie GALICIA was performed. pt tolerated well [facility] ED Note-Nursing Pt ambulatory back t o [...] Pt is A/Ox4 call light within reach [facility] ED Patient Summaryon 024 ED Patient Summary [facility] - Emergency Department [address] [place] [address] 47627 PATIENT DISCHARGE INSTRUCTIONS Patient Information Name: SHERLY ASTUDILLO Age: 24 Years Date of : 2000 Reason For Visit: Back pain; Abdominal pain - ; ABD PAIN LT SIDE, LT LEG NUMB Arrival Time: 05/28/2024 14:14:57 Primary Care Physician: Radha Gomez MD Attending Physician: Pam Gao MD Comment: Visit Diagnosis: Diagnoses This Visit 6 weeks gestation of (Z3A.01) Abdominal pain - ([id number]) Back pain ([id number]) Low back pain with left-sided sciatica (M54.42) Pain in the side (R10.9) The Pharmacy at [facility] is open Tuesday through Tuesday from [...] alcohol and/or drug addiction problems; contact the [facility] 28/03 Crisis Hotline -Text 4LXBG fx [phone]. If you received any narcotics, sedation, or [...] documents With: Address: When: Radha Gomez MD [address] [place] [address] [phone] Within 3 to 5 days Medication Information: The exam and treatment you received today in the [facility] Emergency Department were for an urgent problem and are not intended as complete care. It is important for you to follow up with a doctor, nurse practitioner, or physician?s hotel assistant general manager for ongoing care. If your symptoms [...] so we can reach you if necessary. [facility] Emergency Department has provided you with a complete list of medications post discharge. Please inform your elocution teacher/provider of your visit and for further instruction [...] can happen (more content not included)... Normal [facility] ED Patient Summary [facility] ? Urgent Care [address] [place] [address] 51960 PATIENT DISCHARGE INSTRUCTIONS Patient Information Name: SHERLY ASTUDILLO Age: 24 Years Date of : 2000 [facility]: [id number] Reason For Visit: UC - Abdominal Pain; LT SIDE PAIN, LEG PAIN Arrival Time: 05/28/2024 14:07:02 Primary Care Physician: Radha Gomez MD Attending Physician: Spenser Fang Comment: Patient Education Medication Information: The exam and treatment you received today in the [facility] Emergency Department were for an urgent problem and are not intended as complete care. It is important for you to follow up with a doctor, nurse practitioner, or physician?s hotel assistant general manager for ongoing care. If your symptoms [...] so we can reach you if necessary. [facility] Emergency Department has provided you with a complete list of medications post discharge. Please inform your elocution teacher/provider of your visit and for further instruction [...] (R10.9) Currently (Z34.90) UC - Abdominal Pain ([id number]) If you received any narcotics, sedation, or [...] Disease Control and Prevention May 2014 Normal [facility] Lactic Acidon 05-28-2024 Lactic Acid 9.1 mg/dL Normal 4.5-19.8 [facility] Comment on above: Performed By: #### 2 [id number] #### [facility] (DEFAULT) [address] [place] [address] UA Kzfhb3dd 05-28-2024 UA Bacteria Trace [facility] Comment on above: Order Comment: Urina lysis Microscopic order added on by [employer] Expert Rules system. Performed By: #### 5 [id number], [id number] #### [facility] (DEFAULT) [address] [place] [address] UA RBC None Seen [facility] Comment on above: Order Comment: Urina lysis Microscopic order added on by [employer] Rules system. Performed By: #### 5 [id number], [id number] #### [facility] (DEFAULT) [address] [place] [address] UA Squam Epi Moderate [facility] Comment on above: Order Comment: Urina lysis Microscopic order added on by [employer] Expert Rules system. Performed By: #### 5 [id number], [id number] #### [facility] (DEFAULT) [address] [place] [address] UA WBC 0-2 [facility] Comment on above: Order Comment: Urina lysis Microscopic order added on by [employer] Rules system. Performed By: #### 5 [id number], [id number] #### [facility] (DEFAULT) [address] [place] [address] UA w Culture if Ind Standard on 05-28-2024 Breakpoint UA [facility] Comment on above: Performed By: #### 5 [id number], [id number] #### [facility] (DEFAULT) [address] [place] [address] Color (U) Straw [facility] Comment on above: Performed By: #### 5 [id number], [id number] #### [facility] (DEFAULT) [address] [place] [address] Culture? Not Indicated Invalid Interpretation Code [facility] Comment on above: Result Comment: Resu lt created by rule GL_MAGR_ADD_UA_CULT Result created by rule GL_MAGR_ADD_UA_CULT Performed By: #### 5 [id number], [id number] #### [facility] (DEFAULT) [address] [place] [address] 63972 Glucose (U) [Mass/Vol] Negative Normal [facility] Comment on above: Performed By: #### 5 [id number], [id number] #### [facility] (DEFAULT) [address] [place] [address] 88869 Ketones Ql (U) Negative Normal [facility] Comment on above: Performed By: #### 5 [id number], [id number] #### [facility] (DEFAULT) [address] [place] [address] 51405 Micro? Indicated Invalid Interpretation Code [facility] Comment on above: Result Comment: Resu lt created by rule GL_MAGR_ADD_UA_MICRO Performed By: #### 5 [id number], [id number] #### [facility] (DEFAULT) [address] [place] [address] UA Bilirubin Negative Normal [facility] Comment on above: Performed By: #### 5 [id number], [id number] #### [facility] (DEFAULT) [address] [place] [address] 39972 UA Blood Negative Normal NEGATIVE [facility] Comment on above: Performed By: #### 5 [id number], [id number] #### [facility] (DEFAULT) [address] [place] [address] 82194 UA Clarity SL CLOUDY Abnormal CLEAR [facility] Comment on above: Performed By: #### 5 [id number], [id number] #### [facility] (DEFAULT) [address] [place] [address] 76374 UA Leuk Est SMALL Abnormal NEGATIVE [facility] Comment on above: Performed By: #### 5 [id number], [id number] #### [facility] (DEFAULT) [address] [place] [address] 53768 UA Nitrite Negative Normal NEGATIVE [facility] Comment on above: Performed By: #### 5 [id number], [id number] #### [facility] (DEFAULT) [address] [place] [address] 01388 UA pH 6.0 Normal 5-8 [facility] Comment on above: Performed By: #### 5 [id number], [id number] #### [facility] (DEFAULT) [address] [place] [address] 96850 UA Protein Negative Normal NEGATIVE [facility] Comment on above: Performed By: #### 5 [id number], [id number] #### [facility] (DEFAULT) [address] [place] [address] 01794 UA Spec Grav 1.010 Normal 1.001-1.035 [facility] Comment on above: Performed By: #### 5 [id number], [id number] #### [facility] (DEFAULT) [address] [place] [address] 46621 UA Urobilinogen 0.2 mg/dL Normal 0.2-1.0 [facility] Comment on above: Performed By: #### 5 [id number], [id number] #### [facility] (DEFAULT) [address] [place] [address] 66863 Urine Source Clean Catch Normal [facility] Comment on above: Performed By: #### 5 [id number], [id number] #### [facility] (DEFAULT) [address] [place] [address] 64641 US 1st Trimesteron 05-28-2024 US 1st Trimester [...] Yeh MD 05/28/24 7:34 pm Technologist: PM [facility] US Transvaginalon 05-28-2024 US Transvaginal EXAM: US [...] Yeh MD 05/28/24 7:34 pm Technologist: PM [facility] Urgent Care Note- Provideron 05-28-2024 Urgent Care [...] History Medical history: Resolved Ankle fracture, left (69962078): Resolved. 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 Surgical history: Cholecystectomy (44420586).. Family history: Anxiety Father Sister Diabetes mellitus [...] Diagnosis Abdominal pain, acute, left upper quadrant (XZV36-NF R10.12, Discharge, Medical) Acute left flank pain (QSI37-KH R10.9, Discharge, Medical) Currently (ZFP72-KV Z34.90, Discharge, Medical) Plan Condition: Stable, Guarded. [...] on: 05/28/2024 14:16 EDT] Spenser Fang Normal [facility] hCG Quantitativeon 4 hCG Quantitative 44934.0 mIU/mL High 0.0-0.6 [facility] Comment on above: Result Comment: Post -Menopausal Reference Range is: 0.1-11.6 mIU/mL Performed By: #### 1 [id number], [id number], [id number], [id number] ####[facility] (DEFAULT)[address] [place] [address] HCG ( test) Ql (U)o n 05-08-2024 Interpretation and review of laboratory results Abnormal [facility] Preg Test, Ur Positive [facility] Progress Noteson 04-24-2024 [employer] Authentication Interface Message Text Attestation signed by [...] [facility] PATIENT VISIT CHIEF COMPLAINT: Toothache and [place] Teeth HISTORY OF PRESENT ILLNESS: 24-year-old female [...] canal DIAGNOSIS: Abnormal tooth eruption (Primary Diagnosis) [[id number]] Impacted third molar tooth [[id number]] Caries, Impacted wisdom teeth, and Retained dental root ASSESSMENT: #1 Caries #16 Caries #17 and #32, Partial bony Impaction with pericoronitis PLAN: Surgical extractions #'s 17, 32, Extractions #'s 1, 16, and with local anesthesia Pavan Lee DMD, MD Normal [facility] [employer] Authentication Interface Message Text Normal [facility] Coding Summaryon 03-28-2024 Coding Summary HTMLBase 64 RmrsrsysBWt1gDq+PGhlYWQ +GH3QYYYgI87ozBNkqW2sO8 NMTElOSywgQVBQTElOSyIgb wBvCM1cyEWgIZOy IC8+RM7mEWXlRrtujHLpk5M 0dOX4R79jkd4uOKbcnHX0KX PjNgJxbnsbe2rhgZr4XHpdP mluOyBt IWUpqJ94OBJ7vS68Gh65dFW xzPQec3bfhAg2BlOeATDjEU W2yMbaNOlpx4PlSYCvB68ck EByh5W5 CFEtnSgfwULmIlGuwSH2tY4 kHSvztsdfu3tzorkvNsz4dt 56gHErf8K8iFN8E6BzktR1J GJvbGQg JlsoeXIFkW8wyrwuy1zhiui mWkXiNUAfXQs9BCm3INZuoX ubHfYoYN56CXL1NXSngxMpT 2FsLWFs iMmlHiE7g0B8Jl9DP2HVLsm fP7LXHKBGFIhwkOF+PC90cj 95X2XkGjwaYfi7ZBEkVKG7o BS2qP5o VPVlCVzdx2V9bMI5T1VgqrA pcl9kk1gkWRZmFIfkJ11hjV Qac7N5EHVroGO2MGFtvZbhQ iBzaG93 Oyc+JXWxzSpbr2FuNonnu7t wh5ulvYp0WwlaNXJvlwQcfV apZKI9o3BuUb0oKLZheDW0s ZA2uA2p RyYzGiO0LGrzQ249MvYfbJS xQgfaD44fM0NxeIZ+PHRyPj c5UDGcmSozTJ4dS3QyFUZzf mctbGVm uTjrJV4xKSGbiubxWPChhZ3 gIYDkG9t7AiLkHqL3NJvcM1 FpYSCxylmuFa40wG1zBoWjC iP1CMwd S9GsviB5JSGxhNItLDqbUGX 7V96ns1M2PRZjWNEpEXW8bJ F5fC1jtRvzospnxMNwiUpnj mVydGlj SHczYHfbP948UAXreFlgYiO vZGluZyBEYXRlOiAgMDcvMj QvMjAyNDwvdGQ+FCFzNEG2n WxlPSAn wIXnOZszXh2qxHlgtUyqFR8 gNGMwbvdgMQRsxW3bRBXvsG KmxNayWT4nZDShlcbzy864V iAxMHB0 KROmwYNrS5WayW5mUnBeRXE pIGTcO4KnmZFiJGkfV494AX aaJqA9NAOhfoZfP4HxCURlz WduOiB0 v5W5Ag6Wh9DnxfoqP1LtsWQ hQbKzMsbnRSp2Z5StMxvydC I+FW89HAEeQI19RUr8HAS8y WxlPSdi LFQvH0GmrO5jPdGlOUNuZHF kOyc+PHRhYmxlIHdpZHRoPS ruKQHcAsZzpJepYS6gOf6hG GVyLWNv hAmouZZmVeMkl5roLNMoBWf qLF8daXnvT4PsbER0SWYer8 t1Zh60T30aD7HraIG+PGNvb CG4wPV7 uY1mKoKsWxF0HQkjZ338IzT xnQXaUmbnd2eeh3lfpZw9Hg I8WEVcghYkwCebYGL9a3ApH v04A30r IHdpZHRoPSIxNSUiIHZhbGl qqv1ieF9bTk9+MYRnqGH3bG P5bB4kBgCcNdK8FOxmG725F nRvcCIv Rugxq1mgd6awzUy9NhUpXMG ocbVhwNpsUKF3t5TaZp86H1 MwcNsue2NnQek9el43uIMjn 8I5cKP6 H0QhQRLfrpaleJGcoCmvTM8 jRRXqhnyaOXUogI1eORHeI5 f7ZlJmOdH3KGqxS8WfdqD0B GJvbGQg IRDotGLNtB4seyskv1nzdug iLaNpDPAqFRt2HNj6JMDzsR xmZjNgIJZ4AvU5CTX0sKHdc A0maAtu kktqdH4dBzd+NCY5vJTtxUH WAP4fGqsaeKZ+YDVeSML6wC drORlvWQDanP6gJXCuY6q5N iAwLjA1 KSguW9TwraZ2AIVqdYUfUAA coJCTbP5tbrker1jmkhndCr NbYTHeUOb1QJi6YKPhbCcvU iBsZWZ0 VwL8UPH4cQAuxN1ttNrbhbz glG6kMem+GcxdtQlxETU6LH h3D4HxPlv6POXxvNcdOK9mo GFkZGlu No7sxOctvWcoXA3bDPJyvko zx849CaGpe9unYMCebTIjXG fmIJR7M54wb7S5KSDjPJWrW BW2gJF8 mZ6ugGpubxoewMOpaWvvszH olFviSGbbBOmdZ142JOSypG yqFrWxRPq3U4JxPcv2SRTdb XwuSY1m nIJqDLkiVx6unCeeiMhvIN3 hVYZuaknrx176WqWqg7xxPK SxgRCePPqpAKZ0B69jp1X7L CMwMDAw YIV4fRL3lE2kgNoknwzbaDP mdDsgdmVydGljYWwtYWxpZ2 03UOXewAvpPfVbmKk0H1BgN np5EIRx ePcrIJ9igRLwBJwbGm1jwCe tcLinRL6yCBEpstehf550Xf Bhw6vsSZXeeSOpNJleEPQ2G 45yi1K0 UCHgRUDvOVM0dQG8oM0cuSy nbjogbGVmdDsgdmVydGljYW cmHRptN247JXEpoMskWtIjj GllbnQg KMyyALx8U6BqQshesDK+PC9 8SVQyTS93dGUbaFHbf1oerI u5LxDlYATxFPA3pXywEHrfi 3JkZXIt D27tgPWem6X0AZAtuJiyeZC uWrNtnCZ6zN7cJNwqmczvp9 jwbvbiGibsx9gveg64hG45Z 29sIHdp ZHRoPSIzMCUiIHZhbGlnbj0 tzL6wTx6+TFYpmJO9kKL7jQ 2eNFOxRpC7FDdgL646SeTcf CIvPjxj e4scm3hntCq2TyO5QQPyqoP xmQhvHDV5r5PnHr50T27wDB dpZHRoPSIyMCUiIHZhbGlnb v9ohI3i Ii8+SVXeiOA3gQN2mC1kRoU sLcA2MBpqZ979AoWttAQiPn xnU13yE4SrlHR+BEPfDog3Y CBzdHls VP0tyFVcLSpoSz1xCSB9AwY bUxOoJTptH0QaZMHxvxudpy xuqHT3YFFmRCUpzN56Bg9bt DogMTBw cNKZeE7xevgyh1eeyhekZlA wZSFgNYj0SFf7SKBxaUitMt UtDKK7BbE5BSC1eKXnxF5mh Glnbjog kX9lA2AgDLWmpvysAh33bL6 dKdAxHxG0PBvqCqe+Q1JBV0 ZPUkQsIEJSRUFOTkUgTUlDS EVMTEU8 M0AyXme3XERmnQoePK2qbQW dSGjrQi2xeOqrhKxxRV8zBP YgoiuqLLVavU6qCQOwrTIgz IgrSC0u AAKkxvblx314KbRjNMA6YUE bpMNxK9AmgP0qWnIkMYElPU XyK9VpuYSxBFqhW448TIrhK wI8AXGx kbHyY4VzTCOtkIufEnF8w4O 0Ss3uVy4gWG4kKRs7XP12XP 81lIKrz8Y6uFX7F5FvHBJaw mctcmln vHG4FBBcBZOfmA04gJWkIHi bCu8pz6K1c597UCQsJCNpfF 16Es3jrNyaZZQzeIRBdV9vq hgwz0cj rbkeKxEnFGBtNEt6TGr0EIV hzYyfCfIyFMY9LwX9TMC3yV CwiL4yoIlffnxevV7sAnr+M jYgWWVh ljG2A5XnVck3SKIwpStnJI0 mzQPgEJbnGz1rrDxzdTrrDU 7sOPRxruhkDWZhjO1sENOzq HRvbTog SN4fSEMzzqgrx037AlVpCDD 5KOAdtEEpJ1FcmJ7gUaZlIH SeUITcV2AvmJXhOJmeI322P GxlZnQ7 BDDytfRjD7LvNQUbxKzoUrF 1k3J2Yb5WCQ5XCFW4A9HbPz l0PWYttJqvSO8waXZmCBsoV j5hoYww fLrqZG0vQLZsmfstDBJrzN8 pEVUvvPMmhNpyCH5oFQDlfq koo426VwMbITB3ZADipBMwS 8UwzW0b DuQvQNMuFAIrM2PwiBPgZHw tB341BIftHfT1BXGcmcOiX4 KrVPClrAtfSiT2v7Z2Ge5JL DwvdGQ+ LC02cy78J8JyBglbLmq2RWA wMNA7bNI3bA9uGIRpZXhqs3 R1uVQ7M4FwinMlvp2cq9knO XBzZTog H35vlKSjp5S9KMWhaRK0BQI pxZrrIlUrgC54Vts+PGNvbG gve5TwCinha8jyn0oekPq8U jMwJSIg obUgqShwIJT1z6HhOg22I09 sIHdpZHRoPSIzMCUiIHZhbG fode2uhX8tKx4+EZQkrNU4r UB8rD9f TiAtQnL8KDfjF986HoRabDX fMadws0vvj1cxtTh6SgVwFX GbgiJvwIvwIQO1n1DoZm16A 2NvbGdy j0HlXuc3fs70vMUnx9B3cBK 2Y6WtKCDylaybpXAdrBnfPI 9kJMPrusnpNDNqjM6dJKGeY 6s6RdWi XeY5DBidT4UpnuG7GRXxnQA aZTIonDMXpB9bhbkur3yzxy dgZwFkGHAbWUn4EIt7QLIum WduOiBs DKY8SyZ9PBG7bHOnlN0ifXl fnovoaC7zKve+WSw6n7gopZ DrUR2urJF3GR79LQ26kGPjq 2X1vWO1 D5BhVKXyayjrklpalRF9HHL rUZMlwU16Kv8zzYaoXb9aTM NmAKF6DNHfaGHkT9XlyL6wY iAjMDAw RELaA8HfrWFyUSayV023QEs aStP0KIUdbdGwD0GhTYOucO bhMyO4i5U7Ls2WBX14KO30U J45xWHg o4Q9uBM4Q6VaOWMnmvbadzz mdBZ0YYZrRRYojW56Qt6oiN zzCp4qQUJpTYN9PPRlxTMvT 7FryE4f AuIjMUEnMXFeR3ZzcQKzNRb vL425ZKapJxE8EFKvizEzD2 HtKKDdjEbyWmY4g2J9Rt5GK d52DS60 GY90rLQsb9V3jPE8B5MmDYK eudoxyoyprNK6HONuZSTmeN 43Xw5vyZakZq2gDJOeTRY3Q FRpbWVz M0KjgP2eSxWoAHHbNTDvG7Q gxLPlZCxbI478JEvhCzP2OI AtgwRqW8QaYMDggOsyMvD1l 2N0Ma3E ERmeohf4H4KqYdnvrTV+PC9 6CQVtJB22lXIosUWlh7tvuJ v1LtEeLPVmZAC2vXytBArbu 3JkZXIt Y29 (more content not included)... [facility] Progesterone LCon 03-15-2024 Progesterone LC 1.4 ng/mL Invalid Interpretation Code [facility] Comment on above: Result Comment: Foll icular phase 0.1 - 0.9 Luteal phase 1.8 - 23.9 Ovulation phase 0.1 - 12.0 First trimester 11.0 - 44.3 Second trimester 25.4 - 83.3 Third trimester 58.7 - 214.0 Postmenopausal 0.0 - 0.1 Performed At: [facility] [address] [place], [place] [id number] Sarah Beal PhD Ph:[phone] Performed By: #### [id number] ####[facility] (DEFAULT)[address] [place] [address] Provider Orderson 03-14-2024 Provider Orders [id number] [id number] Coding Summaryon 02-20-2024 Coding Summary HTMLBase 64 MakvdyevBPx9xUh+PGhlYWQ +AD7XWUWlP78csBQovX7wR3 NMTElOSywgQVBQTElOSyIgb hScVZ1kdGLuZGIk IC8+GQ7cMKIaDfjbjSQpr9V 2sFU0I29pth0kAFoftKK9MF LbPgUfrahll1reuHt8UQuhC mluOyBt KRCglQ95TJW0mR16Tl07hIP rjRBid7vcrPq6JfIyULKhLA J0mFbcIWuur8ZpEZZeB09im WXvs7Y4 DKMqeCrdkMVsTeFtrBZ2gV7 jFOhthjdyn6ofikgaIjb3sy 62uOJnn1B3yRX1U9KbsbP1J GJvbGQg FovjsCSJpN5rmmdma3tcgwa oBdJpKXRbBFd5KGb1BEXrkY ewMfVjCS73CVJ5VZAyhkDnM 2FsLWFs zRntHeW0d3Z1Sf7KF6DJBql tX0WGETNLVNwzeDK+PC90cj 24G1ZgTdaxBad6NYNxVCM1p HT0pJ3b XXFyOAmhz1U9oRU8V2VubqI rwk9dm4zcACYcNZddE53jdG Pph1O6QWAmbSO4YXWgxQboP iBzaG93 Oyc+ACVhcSqpu1VoEzleo9c zf2lreTi9QqcaYWKfddGsaQ jpGEK2w0MrOo1lIBEoqNZ3k MN7cX2t AiZkBsC5HAjoK135DaBmbBF sGjfhD93yR4OipTO+PHRyPj r8XERimQesVN1iF6IrRAOis mctbGVm iLgvWO2mTAOaaetqKEQltJ7 dPQAoF1k2YqNaLuP0RAtuZ6 BwQLVmeiziRo97uD4lHkQzP hI6GIov T4WexzC9BDYvnLPeFYyiFIZ 2F83dd5E3MOWyFAQkGUX8qR X1wA9zoKewlcpjcZTqiVwvg mVydGlj XSghUZjaZ187WDClhLxeInB vZGluZyBEYXRlOiAgMDYvMT cvMjAyNDwvdGQ+YJZqUSE1a WxlPSAn eQZhCHgfJz2hiRcfbAcaJN3 vPDJmhsnaIMRjxT9mZKEuqD CizNddSO5yEAZribozd044F iAxMHB0 NQNhhAIeZ1RnpA5oEmBuCID xPTGxY3EsrTNkVWdmX907KT rtZeN5UZUythVbO2WlGUFjf WduOiB0 g1V4Hm7Ra8AfuuroI8QbcFC tBaLqDiszNCj9G1OtFonyoS I+KL48EKTqQF58YGe3MPZ3j WxlPSdi GKPiD8DcyR3mCwKxKVXaPZP kOyc+PHRhYmxlIHdpZHRoPS yqEBPlFaTktTquWW7wCp5lI GVyLWNv uJxisZTtGdPpu1nfDFMtZWf bMG7fnUkvM9EqsSU0BRYnz2 c6Ys13Y61vQ7XjfPJ+PGNvb WX9qVO7 hE4gSbCaNjA0CNayK369HkP wzKFaKdzcy9niw8eppSt0El M0KRQwepTxrMrmJMV2e8DcO f20U21m IHdpZHRoPSIxNSUiIHZhbGl lvz3zuK8fSm6+ZEHojIU1uJ L5wN0bBzFsBiM6IJeuC019P nRvcCIv Oecot9znx9tfwVg2BfNwMAU yxgGosVvqPZJ3q6FhZv26X3 VvlRdfs2XuLps0ga56cKHbf 0S9eGT3 V7YnDMMjncgeoOInaUbtCK6 lAAXmtlwmZWDpfF1oEMHvR9 u6JaLrEdC3RPqlE1GrnrR3C GJvbGQg IPYbmAGXfH6kyblrd9uaewy rEdNoNFJyJFq5WZe6JZPcsL unIrPtUID9SqU5PCC8xCBry A2ycJir oojdaK8yKnt+FLQ0iGTohRV PQG9ePivzmEI+WWGeSEX6kT boZDqwYROycQ9jEOSrM3j6Z iAwLjA1 XKvbZ4CezyI6BURfvKYrOET bvIPAeI6cxjiqp2zhwlvvUg QwPEVdGMv0DCe0DRNsbQocI iBsZWZ0 AbX6KAL0sOJrdM4bmRuoiqd kiQ2rJmh+UewkbLhuBLN6OI l4R2GdLtr0TCKbzGyxQW1og GFkZGlu Av6wmEjoqZftBM1tHIHxwhb gr681XrZok5jtNUJzpGEuAA khYBE3S54yd7L9UZDpGLPiD XT8dPS0 oV1bcDpuulxsmUWvlRbntkF ohTemWJxsQEzjM153FSKlkO vcOcYjNZa4C0YyWas0JFCms VvuWS4a xHFiALmySk4reOhcaZfhQR8 hCFCwiaitq064CdSrd7wxJL ZbkSEjOEdwRJT8R42lg3V8C CMwMDAw NOV2xRS6iL4xpXknxmcunFK mdDsgdmVydGljYWwtYWxpZ2 84WMYbtUghDeMdfTm1V7YjY we4HZSm sYkuOG7ofMCiUSknHd5xfNc deOpkQJ8bQIBebxjxu065Ws Rqz9ahLELveMVnBVnmLKR1F 65vo3O6 WKJxRKYmIOA9zZZ3tB9fmYt nbjogbGVmdDsgdmVydGljYW yjTFozT362ZVXibNddHaQlt GllbnQg WXicHCz0P4RtOontsIT+PC9 7CKDgIY45oHYdmZHci8ayeJ y1UfUdKQZyGMT4yYabWSyws 3JkZXIt M66fmPPtj0D0BOGzsYhupRY mLuVxrFV3pZ1fREmefxguq8 lezylzLsmjt8ncdm92tZ51S 29sIHdp ZHRoPSIzMCUiIHZhbGlnbj0 zuR3iQl4+LDZkzXY5cWP5eB 8nLBIuQtV0OVbfG255RtTfu CIvPjxj b1khm7lxrKe2BeD4EYBcqdO hpWxjRHT6t1CtLx61A19zZA dpZHRoPSIyMCUiIHZhbGlnb w1xhL9t Ii8+MOUbsET9pAV3uO7pPpP wQzR0UBfmC315YzAvjFHaBq wtP58jV6DzlPK+AIYfTvk5E CBzdHls XO4wbFPrILsbGv7rQIB5ZeW tJbFcIGvbW0NtSMOgyazfbj gwrHW3XAOeCGSvmL13Uz4yv DogMTBw sVVGoH7cosazg7zvivnlSrK oXSZkDVo3SKn9NOWglQlpLi UiXDG7ImF0WQB9iUBqiB9on Glnbjog eZ3hI4OpAXXmhjtdAz48kD1 oFlYhNbD5MTnjFnm+Q1JBV0 ZPUkQsIEJSRUFOTkUgTUlDS EVMTEU8 B1GrTfd6CZUxbTnpLY4bfFB fINzwNq2nyBbgkBzwDP9lBO BgdutbPSAxkB4iLSPooTJtc IauKH3m CJObtkxyp163HmCrRMP0LKB svMAiT8PwtG7hQeTvYQYwJJ JsF7OctOGaPVnuO934PJlxV xX4OUJn evIuT3WoKAOnsBtkWpB7n6C 4Pe2wAt0vLI4hSPh6TJ17TF 62oPTxy4Z0mHF1G3FgCYVnp mctcmln wNS6KLNbJEHtlF96nSGeWUh pWl9im0J6z252SJIoMSJgeA 80Xm7qrCrnYHPxvHNQsF4po qunz1wc ohqpBvTzEKGaGLu9LNl1ADQ wsMysJnNzGJN7KeO6MAY9aK TtqA3adJtzbphuaL8jIui+M jUgWWVh ytO8M1VfRii6DFHndNauME3 wdXVfBFpzJj1rhEfssQmpHY 4fYDEgdgddBOMchG3xYLAyt HRvbTog AB7lZYAlstugu418VsIeDQZ 0NVFuePByD7JvjJ3hXfBtQV UfYOLkZ5GmvEDuEBpjR289B GxlZnQ7 XBNcykFxD9EoDHSuxZdrCoR 7r4F7Ww1JMX7XCPI8B6QpWz r5ULRnoCtrDP8dfNIzSRzjX f7fzHza lVctWE9iPNWyiqpwEAMtlC3 iKYWekBNdjEmnZG1yITWoma far768UpNeXLA4CAUqcCUxN 1RwqT4s WeHrNLEgIIAwN8VbkODqOOg vA171QDnaPaF4IGUkblHrA8 NiTTMkqNfoSdC3k9F2If2QW DwvdGQ+ AD96eb38Z5FmOzcnFpg8VOG aFEZ1dYE2uU9cIWZmDGwcn9 U4aMN1Y5KfmlHbau7um3xfO XBzZTog M91uzFWox8C9YKNjoWV9KJS bhJqaIiCeoD30Fkf+PGNvbG mln0YsUujuq7ipo4alnXd6E jMwJSIg zzLbiGyqKVJ6m1AxHs00M95 sIHdpZHRoPSIzMCUiIHZhbG oebu3hdN5lAg6+KUIxtVE4u VP2hH2n VnBwFcL1GNuxB712VhFzvEG sVecfr6zwu6kdtMt2CkQdQJ TitcSkbBpnIQT1k0WzXr19R 2NvbGdy n5AqMcn8ja92nHRdi5N1hTO 6U8UbMCNbeqqbpOLhePkcIP 5uAXPmxbfiYCBsxH9xWLCvU 5m2DkUi OkK9MAvmR9SlsrK7WKRtdQL eITEsxOGFqS5nzwhbs0zdsg ajExBkHNHiGNc4GTu7CVYfd WduOiBs NFM3EuN8GEK9rJLceE1jzTn pajarrV2lAde+UGd0p4jbnJ GzOE3rwWF9FK46XR79rJWxd 3C9vZW8 Z5YdLSDghioanuprzMM8WCF iMGFamR23Hu7bfZirAk2iUY CzNJA0OPFllLHvT5CjaO3fU iAjMDAw ALBiY6FevDVkPBbzS040RAy pHiS3BWFplnYmD7JwCCJakR uhRuA0y6T2Ru4ISA01KN28M L56uBKh l7I0rOI4I8DxKDDhswnhqxm ovUW6BTWkSULreI17Qu6dwU afSj8iBHGlWFA3TZOwmQKuM 9BlrZ8w WpKlDHBpOLNbR7CynRMlXSc vI475IYbaOyF8QEEuddGtR6 PdJMLpbFqaZpE1u6Z1Kl4YS z89HF99 NU10pIHkh3Y7yRV7Q1QeOJV croumyfaqmEP4DFSpTMJlzY 49Uq4oeDauId5qONMgTME9P FRpbWVz A5AljM9zRmDsAXMrQJSkC3G haHLgGZjjU152ONzyUgP4FC RsbsKjH4ClCQSeaOszJcB7i 7X1Cx6A ZYezbvu9F3OwQrhhyWB+PC9 1AWNiNL10lHVjaOCcb2wpnP v8OnGfOPQbFCH2dKnsEYxnz 3JkZXIt Y29 (more content not included)... Normal [facility] Progesterone LCon 02-15-2024 Progesterone LC 18.8 ng/mL Invalid Interpretation Code [facility] Comment on above: Result Comment: Foll icular phase 0.1 - 0.9 Luteal phase 1.8 - 23.9 Ovulation phase 0.1 - 12.0 First trimester 11.0 - 44.3 Second trimester 25.4 - 83.3 Third trimester 58.7 - 214.0 Postmenopausal 0.0 - 0.1 Performed At: [facility] [id number] Sarah Beal PhD Ph:[id number] Performed By: #### 3 [id number] #### [facility] (DEFAULT) [address] [place] [address] Provider Orderson 02-14-2024 Provider Orders [id number]#1.00O TGTIFF [facility] Coding Summaryon 01-19-2024 Coding Summary [facility]Base 64 ClfodkcoFTd7uYi+PGhlYWQ +HG6HLSXlD70hdOCctF5pT6 NMTElOSywgQVBQTElOSyIgb vBlYL3pcQMgOECk IC8+AS4oBWMzZorpmHGpb4W 1hIF1W42ykx2yTEmuqXG9VG RlGsSbmnnzq9zvaXm3XJqbB mluOyBt CJLcjD36BEP6dJ14Ot95aRF isNRqj1ehmFa2QjUfXOHxDB T2bXpoZYjpe6AeDWPyH25yw UUcr3R4 NIXogBdiqNJfObIckDO7eM8 qWIgkiqzxg3kghhxcBho7qh 89zTZrf1Z0sXT8L2LcgvY4H GJvbGQg CmxvyQAFxR9nvihnc8zpott dJrLeHIVbQUg4JBy0KDStxW dxAoHtGW39WNJ8YTJvfkAtJ 2FsLWFs yXpqQbL4z3Z2Pv2WO2YFVlf jK6NURILQGJxzhME+PC90cj 45S9XfEmvtOrf7KCKjBNI0p TC0tX7e ICUiQRpde2G0zLB7S1TsplC fvy1he7shHFVtMTtfV31kpW Huq3D9IJVxwXU4ULTqyZchF iBzaG93 Oyc+ARHqmJtku6UaNtufz6a ly3hnbGh0YqudWWIkbuBkmQ svKNL0g9YaMq5mZGQknHE4k EQ2pH1w OpZuFoW7HOfuS056YaDgmFM sJtcxE00rD3MnvCP+PHRyPj c4DLDtqVqnZG5cF2UkPRDyq mctbGVm dFzxJL0vMMEsjctsZENhzR1 vDPMyD8n9ItFhOcZ4NUqiV8 HpYEVqdplgDf05uK5pZjVaA sD7GLfl D9LsxjC7KKWffLVbZVxyIBN 7P78ti2M9DKPbDGUrIVQ0yZ F2xE5vcMszxejxvSGosQufl mVydGlj TKacVSolU315FNNanBckDfQ vZGluZyBEYXRlOiAgMDUvMT YvMjAyNDwvdGQ+ZMHkJIW7g WxlPSAn iDDsOGnoFk8diFuriTmhRH7 lEIQxxwoiRKNjtJ0sBFGcsN ElwJrgPF2fQRJfyiqwe755I iAxMHB0 EJOyzCMgP0NtuN5uYrJoMQP tNLDfQ3EuwLGiBYwnW843KX kqWrT2VALntyRvB9HfTDFvn WduOiB0 m1G4Hr6Pg8UppdsvX8RduML wWlWrGzmsVAd1T0IxHuxsvS I+XQ98KJCkAH06YGj8ZBG5h WxlPSdi JAIxJ2HxaH6yHiQvLHIdVGI kOyc+PHRhYmxlIHdpZHRoPS eiBQGkPxEltWatNP0rMl0nU GVyLWNv aWgyjVWqYsOxk2inMHSpUFs zLJ1riYvnO7FftSO3PQRun0 n2Ju64U02wZ5NnyMC+PGNvb MN2vFU5 oI6aDuNvDvA8VMrxP976FrE bmZSlGezop8vre5pbwFt4Ev O7QQAdzaGlrFieNSW8t9YbN r93J27b IHdpZHRoPSIxNSUiIHZhbGl vnd5ozB5yZw9+ENWgmJA3lH V6qP1fJeSkGvY1TXtqA866N nRvcCIv Iaeqf5btl1qbeIf2XbLmLZA bjdVpjJniXTE5m4EzMv80H2 BsuNvxa8HtTsu6zq19bUWjz 8V6uAH5 G5BdWODtujywzXFrmMqlLI2 oKPJfxpubMGZddL9wXPRaB0 l3RlFiDfL6RAvbR1XbveD0X GJvbGQg RRGakSLAfI6idmpnf1zoncm pJdJqZGIcRYi0OEe8MNElaN srCxPbUHU9EaT3YNJ1aGKne R0yyYzk ipkivW1bEay+AUF6kGSisPP QQE0uAsasbUJ+DQGzLHK8oN piJRyqLNNffM1oTRDkH9t8Y iAwLjA1 VIxmB5DzvlQ1MFScsAUaVUI bxFETrT7njnlnv4jdwnwcDz CqKARvANr0RJe6WNSnpBeoX iBsZWZ0 GfT9ZGD4fYYcxF4kcSvosii lbE3cCec+SdjfcTgjUSB0QQ l5U2AtWme5UDElqHzyEY9rd GFkZGlu Yn3mcHyebSyqJV0aXVNqibb zc319EyJcp9kzOPVviEHjDD usFFT0H57kt7X0LMVdYBZzS OO1sOK1 xM3ejSbyaxizjWAxoHmqtsX axUxxMPefDYzoA270MPSbuY dfCiKfRCl8W3BtWoo5JWFxb CdoVK0e oPJfWUclJt1jwPuufTuiQP2 aCZZhwtrvu918BnKxe3lyOJ HufPNhZSrtKYV5E26yn7T4T CMwMDAw JQL6hUJ9rN8izOytxxrddAM mdDsgdmVydGljYWwtYWxpZ2 71FHIpjOkwIjUzwNs1Q1GsQ vs6OKDn vQizZV6gvUOvODjcJz6myOn huArpSD6yTNUpccyhu538Jb Hvr5evQVUvsDVrHUjkDIC6N 52dz6R8 JAJyNKTzZST5mJN0wA7olHp nbjogbGVmdDsgdmVydGljYW jwAPboM130NHQyuEuzIcNaw GllbnQg VOqdHIt1M2DzFhbyzSA+PC9 2IMQsMV86rZUowNUxq5fvqE q0NxTlAXUbRAJ5oNslSTkle 3JkZXIt D94qfHAbd0M4FQInlQxujSZ jFkNibQO8mZ0jNZkqberlg0 axkcefNzzeh4yefk59nU86D 29sIHdp ZHRoPSIzMCUiIHZhbGlnbj0 ppJ1tRj3+NQSlxHO1xFQ6sG 0mVGRrToK0LAboU570JtTnr CIvPjxj u4krf0iaoKh0UjE8MPVwfvK ldIzsQSV7s6KxCf31U28pEN dpZHRoPSIyMCUiIHZhbGlnb s2dtM0s Ii8+PRIrxHF4dBE6eF1fYvB rHdO6NYoaS833KxFotGRuQa yuP08rU6DsaZE+DOGcAvz2L CBzdHls IB5pqMOaRGyvEs8qXPS6WzH pLpQrYFarR5KuALPkgknevd kqnCN5KMJtSFSpwF56Jc6xf DogMTBw rNQVfR2dpevot7jfrwgjZkD dXQNeCLu3XLp7AEYicGsjMl NqLKK2LuJ6EVK6vEGrsQ1my Glnbjog xH1cK5InQCGlcgrhNq74tU2 oStUqEkV6HThsAye+Q1JBV0 ZPUkQsIEJSRUFOTkUgTUlDS EVMTEU8 B7AgIhx3ORWpiNcbPN6oxJD wFRigLj9knMlejHptKB1qEB PoetabHSQohB8jDXErzVMcl UptZL5i TMDrsdaac946ArOqFTM0ROX omJVbP5TezC9hSxShITXbOL GqK6MfjNZmUDvyK459MNiuX bK4HWUd qnRdQ6QmSMQdzArmVyN7t8W 2Tp9wMf1jJK0qHLu8JI20MH 85xXOqp5K8xOZ2F5WhMTMqt mctcmln gWS7TFKwNUXfjR09sLZkAPs aMh8kw9U2j414PXLaKNFqsI 41Ke0zcMmbKVZbiYVRxQ6je ptvm5uy iqcvKtYbJCUaKYi1SSf5UTN boSezEnSkKLP8DqP6VIJ4vX AttP5vvWqtlpfmcZ5xVzw+M jUgWWVh laX5Y2IxAcv7ITTscEafWC8 ptNBdCQqxRp4xgWdpyNxzLL 4dAXDpwagcOPDujR4jJHIlh HRvbTog HT3eHYQrppdnq764XqTiHTY 1XFZmcHRaO3CzyT0sFwBpRE JrVWYiA4RtyFDqROauJ994L GxlZnQ7 RNDizqPbC3DpDPIetNqsRwL 0w9R8Ys0WUX1QROU2N0ZfLp g1HRYcfFxbPJ1viNWyJSmoZ s3etOle bFcwZM9bYQBdfybrPSCbfH3 rNGKduPAxwRloJA8wJUSshv yic348RnYuJHP0TTMoqDElW 4FhdF8c PqJiDZUxELIgS1GygIKoGJi lM075FWzcFoQ6AJZcfqCzW6 KgESNwuPmiXtV2q1U3Xq1MV DwvdGQ+ FQ10ce81V5ZgLfexPlv5ZAO oIDH4yKA0jM1dADXyYRmah6 C1eDJ5N9ViauMbti4sn2pfY XBzZTog U16uuZVbv1E3FQGbiCD4PEC vmLpzWxDyuH63Wih+PGNvbG ywh5KiIedyz2cug2lrhGs9M jMwJSIg wcCamKlnHNE6w6PgJo77S41 sIHdpZHRoPSIzMCUiIHZhbG zjec1nlN1jZm0+JJZhmAL9b ZL1bH6d VgLkKyJ9VDfuI446PcBjtYD yLxqqf0hht3sjkVz4PgMiVL DgvfHzsJnkSAQ5g6XiAf81K 2NvbGdy i0OdWnu0sv50fUHvd9B5pUP 1F6YhNHSqmmfpqVVynBqpXC 0zRTIngskfDGMgbJ2bKHAwE 2e6IsIz TvK6LQhjF1FoyuS4RGUqsUK xSBRdoJLYrP4gclomz5lzjq enUoEhAYLqLQh6ZLw7NKYjn WduOiBs YOC2IuX7QUJ0mNVkwB2zdLd kcvxeoQ1bZyw+RRb5k9owcL WdMZ9bhHB6VG07MK00tWJhg 3E3pFG0 P4CtSUIbdsmfgrojfVJ8DKA fSKIntF13Wf1wzKmxUt8jDQ OyPPP7LVFwsOWjR3PgpN3bB iAjMDAw GAKjY2HdeMBkXHscB180UNq iZfU0JNFmeyXcD1ZxSERykO hgXrY5n9H7Vd6LSO86OW62K A42zHZg e4W1vWF5P1LfKBSwievbgqr njLW5ILRjULZhlC36Ak1ieZ laHw3yUCNrGOW2TCMhwGCeT 1SrjN1u HzAnIZQtZDHuP8PguGJfGVo tC253YKdyCwJ5KSWlhlLpE3 WiSZGrfYvoEoC4m8V7Vv2RP n91ZU45 YS93hVWhk2A5pMN4D3WfIWI kkptgpiguhHO7FFObOQCzzN 21Co7evMenJe2hLBFkEFP3U FRpbWVz H1ZvrE1lYhNtGLObKGZhH9I mzWUsIUyfD980WAhcKnG2RC UyzmQbH8IgEPJznGejSoY7k 6V1My7S UAydqqr6F1JzGdadjWL+PC9 0MXTbFK46xSZwtBEiu5dlpL i4VwPuZDRyJEW0rOjcSIlbx 3JkZXIt Y29 (more content not included)... Normal [facility] Progesterone LCon 01-18-2024 Progesterone LC 14.5 ng/mL Invalid Interpretation Code [facility] Comment on above: Result Comment: Foll icular phase 0.1 - 0.9 Luteal phase 1.8 - 23.9 Ovulation phase 0.1 - 12.0 First trimester 11.0 - 44.3 Second trimester 25.4 - 83.3 Third trimester 58.7 - 214.0 Postmenopausal 0.0 - 0.1 Performed At: [facility] [id number] Sarah Beal PhD Ph:[id number] Performed By: #### 3 [id number] #### [facility] ([facility]) [address] [place] [address] Provider Orderson 01-17-2024 Provider Orders [id number] [id number]#1.00 [facility] Coding Summaryon 12-21-2023 Coding Summary HTMLBase 64 LeyhbkrpKJz7iAy+PGhlYWQ +DM8NLANbH35xjXItuH1zC0 NMTElOSywgQVBQTElOSyIgb uBsNP2poIPhRRXe IC8+UX7kSWQnYajzoANej4Y 0oCQ3H03yoy3mDTwgpQC7QK PaKiFteagvf1qkzEj3NObdR mluOyBt VVAhoO70YJW0rZ52Gl16yLM seWTrd0qzgQm0IoJwOHGvWD L6oVdoXDuqs8QoBMYdT56ah XTty4S5 HDDjfVfswMWtXxZniNV5hH1 pUDdcavbyj2gcelmnCrr4sp 31mVDwp3U8wNO6O3ZsseZ2W GJvbGQg LnmvdRROpY8ydsaiw6iztpb xNuAiFXUnNGw5LTp8ZYDbiQ vpAaRaMO39DPF3XKFvpyLqJ 2FsLWFs vQyrTmG8e9Z9Vv3SW9ONSkp nV0GUDQZPWSrgxVA+PC90cj 51Z9RmLsquZqo5JKVfEYH5n YI7oS2n CWNrMWvba9F9aWE0B1QjxqO eix2gi4mvOGJbSAeqK08mzG Hjp4U9HAUgsQR3THIabGeiZ iBzaG93 Oyc+XIHhjRlvq8YaRjkqg8t tf4fxjUb6KhsyTPSodwXbuG knJBL5i1KuCl4hAWHzhNT2p CH2iI0k CtHtTpM4JPakC092CpMgmOK iZszoQ97vN9GsiMA+PHRyPj z1UWUmzLtdGZ2aD8IaBJYtx mctbGVm xQzsTH7gTBKdbkttMWLgkK5 pJWIpH9f1TlCxCyW9RIjlM4 LoJJAcaljkWf63eR8mHjPfK cI9JYte H2XvpoR4YJYuoZXcJFyvLOR 5V19hc0H9EMJvYFLtFIY8aN K6zP6xvKdgnxpxkQCmeLkxt mVydGlj ZMxmNGntB972PEHvjDuyXeB vZGluZyBEYXRlOiAgMDQvMT cvMjAyNDwvdGQ+KRFiOWR9u WxlPSAn bKDsGNjyLe1poLosnVzgJG1 lJWBsdncdHMIulP2bYUJndT ZrmVirNA6wGWAbswedx536O iAxMHB0 FGJzhJUwU3YmnW4kBgRjOHP eBMEzA5QafORaDQstY516EX mnBxV5KAIrgaMyB4OjUIXfv WduOiB0 b2N4Ke0Qg5YaeuypI0PdnZE wGyRmYwppBJj7K3JiKgbmjI I+UP00NAQaGB22GAr7UII5s WxlPSdi BZXrW8QbkE8mUpFiBIFsYAR kOyc+PHRhYmxlIHdpZHRoPS atBHZuKwCdpBieHD1sDx8zI GVyLWNv kEdlqUWqIvGru0vnKKCyRXv xXO6kyVbdS6VfhIM3VHMkx4 m6Qi44C17qK7WvdJQ+PGNvb DD6aXT4 kX1zSvXkCoR2FZdvW033XwL epSItHsbzu6wjl2izlZr6Xx F1QZHvywXuqBjtWQG6h4NjY o59J67a IHdpZHRoPSIxNSUiIHZhbGl tth0ajS7cBa4+ONKyqQE7mL F9pQ3sNfUjQlQ0LCudK213C nRvcCIv Pvxkc4jqk1ediUp6KbBoVXJ caoLdfUwbVBK7j7KrHg41U6 MpaJlqt4MgHgp7ra00cZYec 5N2cOE7 M3QkPEEqdbyggPWcpSlsHO2 bPFIlqprzTQEkkX6vIWFvE4 w6ZeJeVmX3VCuiV0UkylL7O GJvbGQg GPXleLCLeZ9ldwddi4kgftb tYxSjJUToMUw3VLu2JODtmU ddDjNpBNT7BoF9QKR2oUJfo H2peBhg zcmklH4vUdx+EMW6hFDdtBA EBI4oBugxaIL+XNUqUSN7yH muLLonQHOzkQ2vGTBeU3z5A iAwLjA1 ETywL7GtboS5TVYjfFZeTZN zlFIBwH1jhfjfz5frycqaEv AlKQGfZWp3QPc0TJGuyLqoN iBsZWZ0 MhY1NPC7eRYmwM9fcPzcnmv aqV4uCgg+VopgqXujFNT5VO u2I1SvGbs1OCGftXevJG4dj GFkZGlu Dh1pzRghyOwxLP3eURRhape lm870RhNnz8spMITxhTYaEG jkKSC3Z02hq1C7CSKeUGRwU KS6gYD0 rG1faQuuxnxxrREioSrscqE urPbiLJysZSpvH155OFTljI aqMnOlISx3R1BoXfn2QIGga VqfPS5f ePPkUSywGs4sgOviqOsjWX3 oGGYpmnqyy353OvJsz9jeQL HruKXpNRftFRG1A95vs0X6F CMwMDAw HTL2mID2zX8zrHpshohsyTL mdDsgdmVydGljYWwtYWxpZ2 47FIIdaGvgZjOcoZz8U3HwP ds1KJRq oVpqPR2sdJPfQOjmBq2dkMl qoCzaPE5dLPZvixzfp386Wx Xgj7aeKAIetTHsFBpfHRM3T 36jy1U5 BRNoAEKoBHF6hLB9tB8mrJp nbjogbGVmdDsgdmVydGljYW dwJSpmX782YKZzdSqpJqOdj GllbnQg FHeuDNt0X8GfFgzaaWY+PC9 2YHUtSR75vFSpdYEhb7qbrQ i7BmHxYMBtDRV6vCqrLYndq 3JkZXIt Y33gqOXlc1C9PIHfcHbxhYO bQbNstAU3gQ6qRJbqjdray7 gbbmmfByesg8lnte95lN68D 29sIHdp ZHRoPSIzMCUiIHZhbGlnbj0 tyF6uAk5+EOXvlGO7tQL1pG 1yZJUwRjA3PRmkF450PvUgb CIvPjxj k3ucl5xbiUq3JbZ8CGJwbyQ dpOljHBW4x8IhBq95R39sKB dpZHRoPSIyMCUiIHZhbGlnb m0rmL0l Ii8+ZEOuyMV9vRF9jK8rFpV dJrL5XGreC875XlKooQVsMf ytG10wS6NpnIA+BNTePbo9P CBzdHls HJ2weKJhEGaxQe7gTTO0IdQ zFcRwQDmfJ4VwCQReitahtp jteSO2BBCwGMJtvG41Wq9to DogMTBw vCRFsR6prpdka4uielltQiZ yOHLjVFx8NAf3DDGhvFprRg UmCGK3ThL9IRO8iTKcrN3ux Glnbjog lU2eP2JvWMHumkrvNy60iS2 mUcUhZnZ5LRfcXqh+Q1JBV0 ZPUkQsIEJSRUFOTkUgTUlDS EVMTEU8 S3GzMtk3KKAukOniDT9vqJV pVKdhQj5wjUztaRhvQK3yCP ObfpjcGBDjvE0jTVUmeWDml GavPU6v CLKnmvtoi774YzWoUYB0LKF atQCcL1CkoL4mZpHsGOEvAW VwZ3TroVRxGZasL697OIzaJ nW7PKKd yuMqY4UiOAOtbPgiVtC4p2H 1Yh8tOm0rXS3nPKu6NJ69EX 09gMNed0K9xGH4I7FrHKWbm mctcmln fSO3ZEXeYNOqlB26sQJkVVx pNh0si0L8g343TAPzVUWbtU 99Qf6yeEzzFCBebZUKpW9bs adoa7nl galxYnHuDCNmCQi5HEt9ROK xfCzvTtPrOLI4CrV0HXZ1mC CumT4ndFksdabwlX0hCcg+M jUgWWVh frC0P8RbCpj0NGGibGdcII8 plZJpUJbbSc1guIrkwXuuNU 7pCOThjxvrGRYadJ6nJGTas HRvbTog BA0hVOTyrxpkb851RnRpTPS 9ILJkyAEiK4QisL6eWuJwBV LqJXOwZ7PqvCOfWWlyZ566G GxlZnQ7 CMLclrFjA3ZpMXPggZmoVsF 5g2J8Vg4NHN1NTXY7T1SkQu h7EYAacOvlNF6cqQQiHHddK l9lvKor uArcRO1uWSFefxjdOYOfuN3 tMOAimRJhiAkuJX1mMMVmho rws006GjNzOAX8ALUalGVjX 3UpbP6i CcDeJCPcBSOvZ3QlhOYbRCh cE646EEurEeO8CIYqcsKrY0 KeMXNaqJkrXyT2y0S1Eh9SS DwvdGQ+ PR49gj48H7RkVoupEdc5QSD tUKV8eQG0uD5bNIGtHZhwq8 C2kJU6F5ZjnpCpex3ex1yoY XBzZTog P89ibKEva6R4AALvhND6UMA bvWhrUyZloU59Yrg+PGNvbG ryq6VrPvbkj4vxb5jceTu6M jMwJSIg azBxoHqrVUA0q7HsYf60H97 sIHdpZHRoPSIzMCUiIHZhbG qrdw4geX7pHf6+WMVdnZV5h AT0cZ0l IvVsBpC8TVeqA204HsRluEF cYjlio1xyy2plxVl2GzNhFK SifcLyvJlkCSJ7z6GkFb53O 2NvbGdy q6AgEdz8rx17zCTbb7N8pCA 7Q0HhTXQhyyaczAWjbTkiUC 0cGSCxqzwrKVWceN4bGHUeH 7g8IlFt YyS9NJczF7FnleK3AIQfeEW bBFBqlHZBhH4luwccd5yvod aoNlFfNFCxTUb3TGe2VYPjj WduOiBs WTF7WpK3UNR6lSKgsG2lzMu kmbmjfV5rMdh+OFt5c3vbwS BpOZ0ljGQ8MO37KR03pPTne 6G1lSM4 D4ZgGRVfxnbuchtxxLI5CZH bCERfsZ04Fw4bpRqbIt2vCT GoFBO2DJPrpDIdX5UblA8cO iAjMDAw MFMiS0GsfAKvKMmrB986OAy bEgP3MKWxtsSyA9RiNWGquN iaIrS8x7Y6Rn3UWN55JB40L K96cZHj n6R0eXZ5L7GrXGIlrzqxcli xsUH0DJUmBXVpzX12Hp4xpS ubFy9hSXIhTTX4LXWedDCjB 5XrjW1r OhZeFKEsQTNbF7PliAKuDUd eZ267UOtuVcX1WKEgzhFgC2 ZyXMNppDotIfE9v1F2Gn4YG l42LB02 LI28uZOoi7H5nQK4A9HwNOA ltpxluklulUO9UMVtFZKwcE 17Ct7ndQguRh9mPASmYUZ5A FRpbWVz R2ZsoH4yRaMvDMUhXKPbZ8X vcTMmEHraD218YWnfPlB7LZ QjjvFhC7JpFAVdtHvmMxL4u 0H8Gu9W ZCqxucd2H3RmAnpioRO+PC9 6HYSnJA48eBXggGSxr6wfwN u8WdXgAUFkSHT7hBoyJZkzg 3JkZXIt Y29 (more content not included)... [facility] Progesterone LCon 12-17-2023 Progesterone LC 9.6 ng/mL Invalid Interpretation Code [facility] Comment on above: Result Comment: Foll icular phase 0.1 - 0.9 Luteal phase 1.8 - 23.9 Ovulation phase 0.1 - 12.0 First trimester 11.0 - 44.3 Second trimester 25.4 - 83.3 Third trimester 58.7 - 214.0 Postmenopausal 0.0 - 0.1 Performed At: [address] [id number] Sarah Beal PhD Ph:[phone] Performed By: #### [id number] #### [facility] (DEFAULT) [address] [place] [address] Provider Orderson 12-16-2023 Provider Orders [id number] [facility] Mikael 01-04-2022 L --- Specimen: [id number] Received: 01/05/22 Status: QUOC Garber Num: [id number] Spec Type: Surgical Subm Dr: Rodney Lema MD Tissues: A Skin-Other than Cyst, tag, debridement or plastic repair (SCALP) Procedures: HE Stain/5, Gross/Micro L4 Patient Age/Sex Location Account Attending Physician Sherly Astudillo 21/F LATESHA [id number] Rodney Lema MD SPEC NUM: [id number] RECD: 01/05/22 STATUS: QUOC GARBER NUM: [id number] JANE: 01/04/[address] [facility] [address]: Rodney Lema MD ENTERED: 01/05/[address]: Amy Malin SPEC TYPE: Surgical DEPT: MAG FUENTES ORDERED: [...] Fixative: 10% Neutral Buffered Formalin (ESTELA/YJ) Specimen: [id number] Received: 01/05/22 Status: QUOC Garber Num: [id number] Spec Type: Surgical Subm Dr: Rodney Lema MD Tissues: A Skin-Other than Cyst, tag, debridement or plastic repair (SCALP) Procedures: HE Stain/5, Gross/Micro L4 Patient: Sherly Astudillo [id number] (Continued) Specimen: [id number] Received: 01/05/22 (Continued) Signed (signature on file) Debora Cintron MD 01/07/22 0930 Specimen: [id number] Received: 01/05/22 Status: QUOC Garber Num: [id number] Spec Type: Surgical Subm Dr: Rodney Lema MD Tissues: A Skin-Other than Cyst, tag, debridement or plastic repair (SCALP) Procedures: JASWINDER Ellison/5, Gross/Micro L4 Patient: Sherly Astudillo [id number] (Continued) Specimen: [id number] Received: 01/05/22 (Continued) Microscopic Description Six glass slides with H E stained material and two IHC stained slides have been examined. The microscopic findings support the above pathologic diagnosis. ANALYTE SPECIFIC REAGENT (ASR) DISCLAIMER: The use of one or more reagents in the above tests is regulated as an analyte specific reagent (ASR). The performance characteristics were determined by the [facility] of [facility]. Immunohistochemistry assays have not been validated on decalcified tissue. Results should be interpreted with caution given the possibility of false negative results on decalcified specimens. They have not been cleared by the [place] Food and Drug Administration. The FDA has determined that such clearance or approval is not necessary. CPT Codes 14380, 66189, 50948 Specimen: [id number] Received: 01/05/22 Status: QUOC Garber Num: [id number] Spec Type: Surgical Subm Dr: Rodney Lema MD Tissues: A Skin-Other than Cyst, tag, debridement or plastic repair (SCALP) Procedures: HE Stain/5, Gross/Micro L4 Patient: Sherly Astudillo [id number] (Continued) Signed (signature on file) Debora Muller (more content not included)... [facility] Cytology Cervical or vaginal smear or scraping studyon 12-26-2019 [facility] Vital Signs Date Time Vital Sign Value Performing Clinician Facility 12-04-2024 09:01-0400 Body mass index (BMI) [Ratio] 44.95 kg/m2 Emily TALBERT Work Phone: [facility] 12-04-2024 09:01-0400 Body weight 130.18 kg Emily TALBERT Work Phone: [facility] 12-04-2024 09:01-0400 Diastolic blood pressure 86 mm[Hg] Emily TALBERT Work Phone: [facility] 12-04-2024 09:01-0400 Systolic blood pressure 130 mm[Hg] Emily TALBERT Work Phone: [facility] 11-22-2024 12:01-0400 Body height 170.2 cm Ahmet Soler MD Work Phone: [facility] 11-22-2024 12:01-0400 Body mass index (BMI) [Ratio] 45.11 kg/m2 [facility] 11-22-2024 12:01-0400 Body weight 130.64 kg [facility] 11-22-2024 12:01-0400 Diastolic blood pressure 80 mm[Hg] Ahmet Soler MD Work Phone: [facility] 11-22-2024 12:01-0400 Heart rate 90 /min Ahmet Soler MD Work Phone: [facility] 11-22-2024 12:01-0400 Systolic blood pressure 115 mm[Hg] Ahmet Soler MD Work Phone: [facility] 11-20-2024 08:32-0400 Body mass index (BMI) [Ratio] 44.64 kg/m2 Cole Celeste DO Work Phone: [facility] 11-20-2024 08:32-0400 Body weight 129.28 kg Cole Celeste DO Work Phone: [facility] 11-20-2024 08:32-0400 Diastolic blood pressure 90 mm[Hg] Cole Celeste DO Work Phone: [facility] Comment on above: 118/86 second BP 11-20-2024 08:32-0400 Systolic blood pressure 136 mm[Hg] Cole Celeste DO Work Phone: [facility] Comment on above: 118/86 second BP 11-06-2024 08:46-0500 Body mass index (BMI) [Ratio] 44.01 kg/m2 Emily TALBERT Work Phone: [facility] 11-06-2024 08:46-0500 Body weight 127.46 kg Emily TALBERT Work Phone: [facility] 11-06-2024 08:46-0500 Diastolic blood pressure 76 mm[Hg] Emily TALBERT Work Phone: [facility] 11-06-2024 08:46-0500 Systolic blood pressure 128 mm[Hg] Emily TALBERT Work Phone: [facility] 10-22-2024 14:46-0500 Body mass index (BMI) [Ratio] 43.04 kg/m2 Cole Celeste DO Work Phone: [facility] 10-22-2024 14:46-0500 Body weight 124.65 kg Cole Celeste DO Work Phone: [facility] 10-22-2024 14:46-0500 Diastolic blood pressure 70 mm[Hg] Cole Celeste DO Work Phone: [facility] 10-22-2024 14:46-0500 Systolic blood pressure 116 mm[Hg] Cole Celeste DO Work Phone: [facility] 10-08-2024 13:57-0500 Body mass index (BMI) [Ratio] 42.15 kg/m2 Emily [place] Work Phone: [facility] 10-08-2024 13:57-0500 Body weight 122.07 kg Emily [place] Work Phone: [facility] 10-08-2024 13:57-0500 Diastolic blood pressure 82 mm[Hg] Emily Favian PA Work Phone: [facility] 10-08-2024 13:57-0500 Systolic blood pressure 122 mm[Hg] Emily Favian PA Work Phone: [facility] 09-10-2024 14:35-0500 Body mass index (BMI) [Ratio] 40.94 kg/m2 Cole Celeste DO Work Phone: [facility] 09-10-2024 14:35-0500 Body weight 118.57 kg Cole Celeste DO Work Phone: [facility] 09-10-2024 14:35-0500 Diastolic blood pressure 76 mm[Hg] Cole Celeste DO Work Phone: [facility] 09-10-2024 14:35-0500 Systolic blood pressure 118 mm[Hg] Coel Celeste DO Work Phone: [facility] 08-08-2024 11:09-0500 Body mass index (BMI) [Ratio] 39.37 kg/m2 Cole Celeste DO Work Phone: [facility] 08-08-2024 11:09-0500 Body weight 114.03 kg Cole Celeste DO Work Phone: [facility] 08-08-2024 11:09-0500 Diastolic blood pressure 72 mm[Hg] Cole Celeste DO Work Phone: [facility] 08-08-2024 11:09-0500 Systolic blood pressure 120 mm[Hg] Cole Celeste DO Work Phone: [facility] 07-10-2024 10:45-0500 Body mass index (BMI) [Ratio] 38.37 kg/m2 Cole Celeste DO Work Phone: [facility] 07-10-2024 10:45-0500 Body weight 111.13 kg Cole Celeste DO Work Phone: [facility] 07-10-2024 10:45-0500 Diastolic blood pressure 74 mm[Hg] Cole Celeste DO Work Phone: [facility] 07-10-2024 10:45-0500 Systolic blood pressure 118 mm[Hg] Cole Celeste DO Work Phone: [facility] 06-07-2024 13:09-0400 Body mass index (BMI) [Ratio] 38.53 kg/m2 [facility] 06-07-2024 13:09-0400 Body weight 111.58 kg [facility] 06-07-2024 13:09-0400 Diastolic blood pressure 72 mm[Hg] [facility] 06-07-2024 13:09-0400 Systolic blood pressure 116 mm[Hg] [facility] 05-08-2024 11:32-0400 Body height 170.2 cm Cole Celeste DO Work Phone: [facility] 05-08-2024 11:32-0400 Body mass index (BMI) [Ratio] 39.16 kg/m2 Cole Celeste DO Work Phone: [facility] 05-08-2024 11:32-0400 Body weight 113.4 kg Cole Celeste DO Work Phone: [facility] 05-08-2024 11:32-0400 Diastolic blood pressure 80 mm[Hg] Cole Celeste DO Work Phone: [facility] 05-08-2024 11:32-0400 Systolic blood pressure 124 mm[Hg] Cole Celeste DO Work Phone: [facility] 10-06-2023 08:53-0500 Body height 170.2 cm Cole Celeste DO Work Phone: [facility] 10-06-2023 08:53-0500 Body mass index (BMI) [Ratio] 38.28 kg/m2 Cole Celeste DO Work Phone: [facility] 10-06-2023 08:53-0500 Body weight 110.86 kg Cole Celeste DO Work Phone: [facility] 10-06-2023 08:53-0500 Diastolic blood pressure 72 mm[Hg] Cole Celeste DO Work Phone: [facility] 10-06-2023 08:53-0500 Systolic blood pressure 120 mm[Hg] Cole Celeste DO Work Phone: [facility] Healthcare Encounters Encounter Date Encounter Type Care Provider Facility Start: 12-04-2024 End: 12-04-2024 Bamboo flowsheet Emily TALBERT Work Phone: [facility] Start: 12-04-2024 End: 12-04-2024 Bamboo flowsheet Emily TALBERT Work Phone: [facility] Start: 12-04-2024 End: 12-04-2024 Office outpatient visit 15 minutes Emily TALBERT Work Phone: [facility] Comment on above: Third trimester preg maicol; 34 weeks gestation of ; Gestational diabetes mellitus (GDM) affecting ; Gestational diabetes mellitus (GDM), antepartum, gestational diabetes method of control unspecified Start: 12-04-2024 End: 12-04-2024 ambulatory EMILY LUNDY Not Available Start: 12-03-2024 End: 12-03-2024 Clinisync Result Encounter Cole Celeste DO Work Phone: [facility] External Department Unsolicited Start: 12-03-2024 End: 12-03-2024 Clinisync Result Encounter Cole Celeste DO Work Phone: [facility] External Department Unsolicited Start: 12-03-2024 End: 12-03-2024 ambulatory [facility] Start: 11-26-2024 End: 11-26-2024 Clinisync Result Encounter Cole Celeste DO Work Phone: [facility] External Department Unsolicited Start: 11-26-2024 End: 11-26-2024 Clinisync Result Encounter Cole Celeste DO Work Phone: [facility] External Department Unsolicited Start: 11-22-2024 End: 11-22-2024 Office consultation new/estab patient 60 min Bandar Darden MD Work Phone: [facility] Comment on above: Polyhydramnios affec ting in third trimester (Primary Dx); PCOS (polycystic ovarian syndrome) Start: 11-22-2024 End: 11-22-2024 ambulatory [facility] Start: 11-20-2024 End: 11-20-2024 Office [...] Available Start: 10-25-2024 ambulatory Radha Gomez Facility: [facility] Start: 10-24-2024 End: 10-24-2024 Clinisync Result Encounter Emily TALBERT Work Phone: [facility] Unsolicited Start: 10-24-2024 End: 10-24-2024 Clinisync Result Encounter Emily TALBERT Work Phone: [facility] External Department Unsolicited Start: 10-24-2024 End: 10-24-2024 ambulatory [facility] Start: 10-22-2024 End: 10-22-2024 Office outpatient visit [...] Start: 10-18-2024 End: 10-18-2024 [facility] Start: 10-15-2024 End: 10-15-2024 Chart abstracting Scanning Provider External [facility] Start: 10-08-2024 End: 10-08-2024 Bamboo flowsheet [...] EMILY LUNDY Not Available Start: 10-06-2024 ambulatory [facility] Facility: [facility] Start: 09-24-2024 ambulatory [facility] Facility: [facility] Start: 09-10-2024 End: 09-10-2024 Clinisync Result Encounter [...] encounter procedure Cole Celeste DO Work Phone: [facility] Healthcare Work Phone: Start: 08-08-2024 End: [...] 07-05-2024 End: 07-05-2024 ambulatory Radha Santo Jason Facility:[facility] Start: 07-04-2024 End: 07-04-2024 Clinisync Result Encounter Cole Celeste DO Work Phone: [facility] External Department Unsolicited Start: 07-04-2024 End: 07-04-2024 Clinisync Result Encounter Cole Celeste DO Work Phone: [facility] External Department Unsolicited Start: 06-07-2024 End: 06-07-2024 ambulatory [facility] Celeste Nurse [facility] Comment on above: GA: 8w6d Start: 06-01-2024 End: 06-01-2024 ambulatory Radha Gomez Facility[facility] Start: 05-28-2024 End: 05-28-2024 Emergency department patient visit Radha Santo Jason Facility:[facility] Start: 05-28-2024 End: 05-28-2024 ambulatory Radha Santo Jason Facility:[facility] Start: 05-08-2024 End: 05-08-2024 Bamboo flowsheet Cole [...] encounter procedure Kenya Richter DDS Work Phone: [facility] Comment on above: Abnormal tooth erupt ion (Primary Dx); Impacted third molar tooth Start: 04-24-2024 ambulatory KENYA RICHTER Facili ty:[facility] Start: 03-14-2024 End: 03-14-2024 ambulatory [facility] Facility:[facility] Start: 02-14-2024 End: 02-14-2024 ambulatory [facility] Facility:[facility] Start: 01-17-2024 End: 01-17-2024 ambulatory [facility] Facility:[facility] Start: 12-16-2023 End: 12-16-2023 ambulatory [facility] Facility:[facility] Start: 10-06-2023 End: 10-06-2023 Office outpatient new 20 minutes Cole Celeste DO Work Phone: [facility] Comment on above: Irregular periods/me nstrual cycles; PCOS (polycystic ovarian syndrome); Insulin resistance Procedures Date Procedure Procedure Detail Performing Clinician Start: 12-03-2024 US OB BPP W NON-STRESS Cole Celeste DO Work Phone: Start: 11-26-2024 US OB BPP W NON-STRESS [...] t hin layer prep mnl screen Deana Roseann Sanchezaprawira DO Work Phone: Plan of Treatment Date Care Activity Detail Author Start: 2048 Shingles (RZV) Vacci ne (1 of 2) Shingles (RZV) Vaccine (1 of 2) [facility] Start: 11-18-2033 DTaP,Tdap and Td Vaccines (9 - Td or Tdap) DTaP,Tdap and Td Vaccines (9 - Td or Tdap) [facility] Start: 08-08-2027 Screening for malign ant neoplasm of cervix Pap Smear [facility] Start: 11-22-2025 Adult BMI Screening Adult BMI Screen ing [facility] Start: 11-22-2025 Tobacco Screening Tobacco Screening [facility] Start: 05-06-2025 Influenza vaccination Influenz a Vaccine (Season Ended) [facility] Start: 12-26-2024 End: 12-26-2024 Professional / ancillary services management 12/26/2024 11:30 AM EDT Ancillary Procedure [facility] [address] [place] [address] [facility] Start: 12-11-2024 End: 12-11-2024 Patient encounter procedure 12/11/2024 1:30 PM EDT Routine [facility] [address] [place] [id number] Cole Alonso, [address] [place] [address] [facility] Start: 12-04-2024 End: 12-04-2025 US for US OB follow up transabdominal approach Imaging Routine Gestational diabetes mellitus (GDM) affecting Expected: 12/04/2024, Expires: 12/04/2025 [facility] Work Phone: Comment on above: Expected: 12/04/2024 , Expires: 12/04/2025 Start: 12-04-2024 End: 12-04-2024 Patient encounter procedure [facility] Comment on above: Arrived Start: 11-20-2024 End: 11-20-2024 Patient encounter procedure 11/20/2024 8:30 AM EDT Routine [facility] [address] [place] [address] Cole Alonso DO [address] [place] [address] [facility] Start: 11-06-2024 End: 11-06-2025 Measurement of glucose 1 hour after glucose challenge for glucose tolerance test Glucose tolerance, 1 hour Lab Routine Diabetes mellitus screening Expected: 11/06/2024 (Approximate), Expires: 11/06/2025 [facility] Comment on above: Expected: 11/06/2024 [...] 10/18/2024 1:00 PM EST Appointment [facility] [address] [facility] [address] [place] [address] [facility] Start: 10-08-2024 End: 10-08-2025 CBC panel - Blood by Automated count CBC Lab Routine Diabetes mellitus screening Expected: 10/08/2024 (Approximate), Expires: 10/08/2025 [facility] Healthcare Work Phone: Comment on above: Expected: 10/08/2024 (Approximate), Expires: 10/08/2025 Start: 10-08-2024 End: 10-08-2025 Measurement of glucose 1 hour after glucose challenge for glucose tolerance test Glucose tolerance, 1 hour Lab Routine Diabetes mellitus screening Expected: 10/08/2024 (Approximate), Expires: 10/08/2025 [facility] Healthcare Comment on above: Expected: 10/08/2024 (Approximate), Expires: 10/08/2025 Start: 10-08-2024 End: 10-08-2024 Patient encounter procedure [facility] Comment on above: Arrived Start: 09-10-2024 End: 09-10-2025 Drugs of abuse panel - Urine by Screen method Rapid drug screen, urine Lab Routine , unspecified gestational age Encounter for supervision of normal first in first trimester Expected: 09/10/2024 (Approximate), Expires: 09/10/2025 [facility] Healthcare Work Phone: Comment on above: Expected: 09/10/2024 (Approximate), Expires: 09/10/2025 Start: 09-10-2024 End: 09-10-2024 Patient encounter procedure 09/10/2024 2:00 PM EST Routine [facility] [address] [facility] [phone] Cole Alonso, [address] [facility] [place] [address] [facility] Start: 09-10-2024 End: 09-10-2024 Professional / ancillary services management 09/10/2024 1:00 PM EST Ancillary Procedure [facility] [address] [facility] [place] [phone] [facility] Start: 08-08-2024 End: 02-06-2025 [...] procedure 07/04/2024 3:00 PM EDT [facility] [address] [place] [phone] Kenya Richter, DDS [address] [place] [phone] [facility] Start: 06-07-2024 End: 06-07-2025 ABO/Rh ABO/Rh Lab Routine Missed menses , unspecified gestational age Expected: 06/07/2024 (Approximate), Expires: 06/07/2025 [facility] Comment on above: Expected: 06/07/2024 (Approximate), Expires: 06/07/2025 Start: 06-07-2024 End: 06-07-2025 Blood type and Indirect antibody screen panel - Blood Type and screen Lab Routine Missed menses , unspecified gestational age Expected: 06/07/2024 (Approximate), Expires: 06/07/2025 [facility] Healthcare Work Phone: Comment on above: Expected: 06/07/2024 (Approximate), Expires: 06/07/2025 Start: 06-07-2024 End: 06-07-2025 Drugs of abuse panel - Urine by Screen method Rapid drug screen, urine Lab Routine , unspecified gestational age Encounter for supervision of normal first in first trimester Expected: 06/07/2024 (Approximate), Expires: 06/07/2025 [facility] Healthcare Comment on above: Expected: 06/07/2024 (Approximate), Expires: 06/07/2025 Start: 06-07-2024 End: 06-07-2025 US Pelvis transvaginal US OB transvaginal Imaging Routine Missed menses Expected: 06/07/2024 (Approximate), Expires: 06/07/2025 [facility] Healthcare Comment on above: Expected: 06/07/2024 (Approximate), Expires: 06/07/2025 Start: 06-07-2024 End: 06-07-2024 ambulatory 06/07/2024 1:00 PM EDT Initial [facility] [address] [place] [address] [facility] Start: 06-07-2024 End: 06-07-2024 Professional / ancillary services management 06/07/2024 12:30 PM EDT Ancillary Procedure [facility] [address] [place] [address] [facility] Start: 06-05-2024 Influenza vaccination Influenza Vacc ine (#1) [facility] Start: 05-08-2024 End: 05-08-2024 Patient encounter procedure 05/08/2024 11:20 AM EDT Office Visit [facility] [address] [facility] [phone] Cole Alonso, DO [address] [place] [address] Arrived [facility] Comment on above: Arrived Start: 05-06-2024 Influenza vaccination [facility] Start: 11-03-2023 End: 11-03-2023 Patient encounter procedure 11/03/2023 8:30 AM EST Office Visit [facility] [address] [facility] [phone] Cole Alonso, DO [address] [place] [address] [facility] Start: 10-17-2023 End: 10-17-2023 Professional / ancillary services management 10/17/2023 8:30 AM EST Ancillary Procedure [facility] [address] [facility] [phone] [facility] Start: 05-06-2023 COVID-19 Vaccine ( season) COVID-19 Vaccine ( season) [facility] Start: 2019 Screening for malign ant neoplasm of cervix Pap Smear [facility] Start: 2017 DTaP,Tdap and Td Vaccines (1 - Tdap) DTaP,Tdap and Td Vaccines (1 - Tdap) [facility] Start: 2017 Hepatitis A (HAV) Vaccine (optional start 19+ years) Hepatitis A (HAV) Vaccine (optional start 19+ years) [facility] Start: 2017 Hepatitis B vaccination Hepati tis B (HBV) Vaccine (1 of 3 - 19+ 3-dose series) [facility] Start: 2016 Adult BMI Follow Up Plan Adult BMI F ollow Up Plan [facility] Start: 07-01-2016 Adult BMI Screening Adult BMI Screen ing [facility] Start: 2016 Hepatitis C screening Hepatitis C An tibody [facility] Start: 2016 Tetanus + diphtheria + acellular pertussis vaccine (product) Tdap Booster [facility] Start: 2013 Vaccination for volodymyr n papillomavirus HPV Vaccine (1 - 3-dose series) [facility] Start: 2010 Depression Screening Depression Scre ening [facility] Start: 2010 Tobacco Screening Tobacco Screening [facility] Antimullerian hormon e (AMH) Antimullerian hormone (AMH) Lab Routine Irregular periods/menstrual cycles Ordered: 10/06/2023 [facility] Comment on above: Ordered: 10/06/2023 Bacteria identified in Urine by Culture Urine culture Microbiology Routine Missed menses Ordered: 06/07/2024 [facility] Comment on above: Ordered: 06/07/2024 CBC W Auto Different ial panel - Blood CBC and differential Lab Routine PCOS (polycystic ovarian syndrome) Ordered: 10/06/2023 [facility] Comment on above: Ordered: 10/06/2023 CBC W Auto Different ial panel - Blood CBC and differential Lab Routine Missed menses , unspecified gestational age Ordered: 06/07/2024 [facility] Comment on above: Ordered: 06/07/2024 CHLAMYDIA TRACHOMATI S (GENITO/STI) CHLAMYDIA TRACHOMATIS (GENITO/STI) Lab Routine STD exposure Ordered: 08/08/2024 [facility] Healthcare Comment on above: Ordered: 08/08/2024 Cytology Cervical or vaginal smear or scraping study Pap Smear Pathology and Cytology Routine Well woman exam with routine gynecological exam Ordered: 08/08/2024 [facility] Healthcare Comment on above: Ordered: 08/08/2024 DHEA DHEA Lab Routine PCOS (polycystic ovarian syndrome) Ordered: 10/06/2023 [facility] Comment on above: Ordered: 10/06/2023 DHEA-sulfate DHEA-sulfate Lab Routine PCOS (polycystic ovarian syndrome) Ordered: 10/06/2023 [facility] Comment on above: Ordered: 10/06/2023 Follicle stimulating hormone Follicle stimulating hormone Lab Routine PCOS (polycystic ovarian syndrome) Ordered: 10/06/2023 [facility] Comment on above: Ordered: 10/06/2023 hCG, quantitative, hCG, quantitative, Lab Routine PCOS (polycystic ovarian syndrome) Ordered: 10/06/2023 [facility] Work Phone: Comment on above: Ordered: 10/06/2023 Hemoglobin A1c measurement Hemoglobin A1c Lab Routine Irregular periods/menstrual cycles Ordered: 10/06/2023 [facility] Comment on above: Ordered: 10/06/2023 Hemoglobin A1c/Hemoglobin.total in Blood Hemoglobin A1c Lab Routine Missed menses , unspecified gestational age Ordered: 06/07/2024 [facility] Comment on above: Ordered: 06/07/2024 Hepatitis B virus surface Ag [Presence] in Serum or Plasma by Immunoassay Hepatitis B surface antigen Lab Routine Missed menses , unspecified gestational age Ordered: 06/07/2024 [facility] Comment on above: Ordered: 06/07/2024 Hepatitis C virus Ab [Presence] in Serum or Plasma by Immunoassay Hepatitis C antibody Lab Routine Missed menses , unspecified gestational age Ordered: 06/07/2024 [facility] Comment on above: Ordered: 06/07/2024 HIV-1/HIV-2 antigen/antibody combination immunoassay HIV-1 and HIV-2 antibodies Lab Routine Missed menses , unspecified gestational age Ordered: 06/07/2024 [facility] Comment on above: Ordered: 06/07/2024 Luteinizing hormone Luteinizing hormone Lab Routine PCOS (polycystic ovarian syndrome) Ordered: 10/06/2023 [facility] Comment on above: Ordered: 10/06/2023 Neisseria gonorrhoea e DNA [Presence] in Unspecified specimen by ISHA with probe detection Neisseria gonorrhea DNA probe, direct Lab Routine STD exposure Ordered: 08/08/2024 [facility] Comment on above: Ordered: 08/08/2024 Reagin Ab [Presence] in Serum by RPR RPR Lab Routine Missed menses , unspecified gestational age Ordered: 06/07/2024 [facility] Comment on above: Ordered: 06/07/2024 Rubella antibody, IgG Rubella an tibody, IgG Lab Routine Missed menses , unspecified gestational age Ordered: 06/07/2024 [facility] Comment on above: Ordered: 06/07/2024 SURESWAB(R) ADVANCED VAGINITIS PLUS, TMA SURESWAB(R) ADVANCED VAGINITIS PLUS, TMA Pathology and Cytology Routine Vaginal discharge Ordered: 08/08/2024 [facility] Work Phone: Comment on above: Ordered: 08/08/2024 Thyrotropin [Units/volume] in Serum or Plasma TSH Lab Routine PCOS (polycystic ovarian syndrome) Ordered: 10/06/2023 [facility] Healthcare Comment on above: Ordered: 10/06/2023 Thyroxine (T4) free [Mass/volume] in Serum or Plasma T4, free Lab Routine PCOS (polycystic ovarian syndrome) Ordered: 10/06/2023 [facility] Comment on above: Ordered: 10/06/2023 US for US PELVIS-TRANS VAG IF INDICATED Imaging Routine PCOS (polycystic ovarian syndrome) Ordered: 10/06/2023 [facility] Comment on above: Ordered: 10/06/2023 Immunizations Immunization Date Immunization Notes Care Provider Shaina marley 06-12-2020 influenza virus vacc ine, unspecified formulation Cole Alonso DO Work Phone: [facility] Payers Date Payer Category Payer [employer] [place] [id number] 2022 Medicaid [id number] 2022 Medicaid [id number] 1998 Unknown [id number] 2.16.840.1.856143.3.579.2. 732 1998 Unknown [id number] 2.16.840.1.637748.3.579.2. 1286 1998 Unknown [id number] 2.16.840.1.063784.3.579.2. 1285 1998 Unknown [id number] 2.16.840.1.974040.3.579.2. 1285 1998 Unknown [id number] 2.16.840.1.755328.3.579.2. 1258 1998 Unknown [id number] 2.16.840.1.606707.3.579.2. 1258 1998 Unknown [id number] 2.16.840.1.689604.3.579.2. 1258 1998 Unknown [id number] 2.16.840.1.756402.3.579.2. 1258 1998 Unknown [id number] 2.16.840.1.528099.3.579.2. 1258 1998 Unknown [id number] 2.16.840.1.799221.3.579.2. 1258 1998 Unknown [id number] 2.16.840.1.768563.3.579.2. 1258 1998 Unknown [id number] 2.16.840.1.635372.3.579.2. 1258 1998 Unknown [id number] 2.16.840.1.023469.3.579.2. 1258 1998 Unknown [id number] 2.16.840.1.908678.3.579.2. 1258 1998 Unknown [id number] 2.16.840.1.408133.3.579.2. 1258 1998 Unknown [id number] 2.16.840.1.635707.3.579.2. 1998 Unknown [id number] 2.16.840.1.874379.3.579.2. 1998 Unknown [id number] 2.16.840.1.366812.3.579.2. 1998 Unknown [id number] 2.16.840.1.727287.3.579.2. 718 1998 Unknown [id number] 2.16.840.1.643745.3.579.2. 718 1998 Unknown [id number] 2.16.840.1.744442.3.579.2. 718 1998 Unknown [id number] 2.16.840.1.989798.3.579.2. 8 1998 Unknown [id number] 2.16.840.1.976819.3.579.2. 718 1998 Unknown [id number] 2.16.840.1.710443.3.579.2. 718 1998 Unknown [id number] 2.16.840.1.142517.3.579.2. 718 1998 Unknown [id number] 2.16.840.1.489833.3.579.2. Social History Date Type Detail Facility Start: 09-15-2023 End: 05-08-2024 Tobacco smoking status SCIS Ex-smoker [facility] History of tobacco use Current smoker [...] Sex Assigned At Not on file [facility] Tobacco smoking stat [facility] Tobacco smoking consumption unknown [facility] Start: 05-08-2024 End: 10-15-2024 Tobacco use and exposure Smokeless tobacco non-user [facility] Start: 04-20-2024 [facility] Start: 10-15-2024 End: 11-22-2024 Alcoholic beverage intake [facility]-dr[facility] (finding) [facility] Start: 12-03-2019 Sex Female (finding) [facility] Medical Equipment Procedure Code Equipment Code Equipment Origin al Text Equipment Identifier Dates Check blood gluc ose using test strips fasting and 1 hour after each meal. Four to 5 times a day per insurance preferences [id number] Start: 11-22-2024 Use it to check fingerstick blood glucose 4 times a day fasting and 1 hour after each meal. Dispensed per insurance preference [id number] Start: 11-22-2024 Use as instructed [id number] Start: 12-04-2024 Clinical Notes 10-06-2023 to 12-04-2024 NITISH Rojas - 12/04/2024 8:40 AM Brice Aranda CMA - 11/22/2024 11:30 AM Volodymyr Soler MD - 11/22/2024 11:30 AM Lakeshia Xavier LPN - 11/20/2024 8:30 AM EDT Note Date & Type Note Facility 12-04-2024 History of Present illness Narrative Reason for Appointment: Patient ID: Sherly Astudillo is a 24 y.o. female who presents for Routine Visit Patient presents today for Return OB appointment. MEDICATIONS Current Outpatient Medications Medication Instructions aspirin 81 mg, Oral, Daily RT insulin NPH (Isophane) (HUMULIN N,NOVOLIN N) 5 Units, Subcutaneous, 2 times daily before meals insulin NPH-insulin regular (NovoLIN) (70-30) 100 UNIT/ML injection 5 Units, Subcutaneous, 2 times daily before meals insulin syringe 29G X 1/2 0.5 mL misc Use as instructed magnesium oxide (MAG-OX) 400 mg, 2 times [...] reviewed. Vitals: Estimated body mass index is 44.95 kg/m as calculated from the following: Height as of 05/08/24: 5' 7 . Weight as of this encounter: 287 lb. BP: 130/86 Patient's last menstrual period was 04/06/2024. ASSESSMENT & PLAN ICD-10-CM 1. Third trimester Z34.93 2. 34 weeks gestation of Z3A.34 3. Gestational diabetes mellitus (GDM) affecting O24.419 US OB follow up transabdominal approach 4. Gestational diabetes mellitus (GDM), antepartum, gestational diabetes method of control unspecified O24.419 insulin NPH-insulin regular (NovoLIN) (70-30) 100 UNIT/ML injection insulin NPH, Isophane, (HumuLIN N,NovoLIN N) 100 UNIT/ML injection insulin syringe 29G X 1/2 0.5 mL misc Return OB: Patient presents today for a routine obstetrics appointment. Patient is currently 34w4d . Patient states she is doing well but has complaints of being tired due to current . Patient has verbalizes frequent movement. labor precautions was discussed/given and patient was instructed to perform kick counts three times a day. Patient had seen [facility] and blood sugars are elevating. Today sugars are in range of 150-164 throughout the day. Patient admits skipping meals. Patient encouraged to eat 3 small meals daily and we will send in orders for diabetic education and start taking insulin 5units of regular and humilin n 5 units both morning and night. She will follow up with us in one week and we will readdress sugars and delivery date per gestational protocol Orders Placed This Encounter Procedures US OB follow up transabdominal approach Follow Up: Patient is to return to office in 1 week for routine OB appointment. Documented by NITISH Rojas on behalf of: NITISH Rojas documented in this encounter [facility] 11-22-2024 History of Present illness Narrative Headache/epigastric [...] no Have you been seen here at [facility] in a previous ? No Recent ER visits or hospitalizations? No Bring blood sugar log or meter with you today? (Please bring them with you for every visit at [facility]) no Flu vaccine (Jul-November)? No Any [...] and the other consultants, we search on [employer] and all the available care everywhere epic I did review all the imaging studies of the patient available on EMR, ordered by the primary care physician and the other solutions market consultant HABITS: Patient activity no restrictions, diet [...] high, please refer the patient back to [facility] for formal diabetes management 5. Continue [...] patient is in complete care of her frame wirer. Patient does not have appointment scheduled with us. Thank you for allowing me to participate in Sherly Astudillo . If there any questions please do not hesitate to contact us. Sincerely, AHMET SOLER MD Video Visit via Real-time Synchronous Audiovisual Provider Location: [facility] AT [address] [address] Patient Location: Other Patient Location Machinist Mechanic: None Video Visit Consent Statement: I discussed [...] that there are some limitations compared to [id number] evaluations. We elected to proceed. documented in this encounter [facility] 11-20-2024 History of Present illness Narrative Reason [...] nursing note reviewed. Exam conducted with a dye line operator present. Vitals: Estimated body mass index is [...] three times a day. Pt return to [facility] on the for follow up anatomy scan. Pt second BP in office was 118/86. No orders of the defined types were placed in this encounter. Follow Up: Patient is to return to office in 2 week for routine OB appointment. Documented by Bailey Xavier LPN on behalf of: Cole Alonso DO documented in this encounter [facility] 11-06-2024 History of Present illness Narrative [...] of: NITISH Rojas documented in this encounter [facility] 10-24-2024 Note [facility] Note Reason for cardiology [...] mouth in the morning., Disp: , Rfl: 5-ADMU-FNFEF ACID-OM3 ORAL, Take by mouth., Disp: , [...] 4 to 6 weeks Angel Luis Evans MD,[facility] 10-22-2024 History of Present illness Narrative [...] nursing note reviewed. Exam conducted with a dye line operator present. Vitals: Estimated body mass index is [...] NST/BPP to have started. Orders sent to [facility] Scheduling and [facility]. Hospital to reach out to patient to schedule. Patient to return to clinic in 2 weeks for routine OIB appointment. Documented by Rose Latham LPN on behalf of: Cole Alonso DO documented in this encounter [facility] 10-08-2024 History of Present illness Narrative Reason for Appointment: Patient ID: Sherly Astudillo is a 24 y.o. female who presents for Routine Visit Patient presents today for Return OB appointment. MEDICATIONS Current Outpatient Medications Medication Instructions clotrimazole (Mycelex) 10 MG jacob 1 lozenge(s), Oral, 5x/Day, x 10 day(s), # 50 lozenge(s), 0 Refill(s), 10/16/24 8:59:00 AM SHREDDED FILLER CUTTER OPERATOR, Pharmacy: [facility] [id number], 1 lozenge(s) Oral 5x/Day,x10 day(s), 170.18, cm, [...] Jackson as a child Endometriosis Mother Magnolia aJckson Diabetes Mother Magnolia Jackson Depression Father Hypertension [...] of: NITISH Rojas documented in this encounter [facility] 10-06-2024 Note Patient Education Ma terials [...] Follow these instructions at home: ? Take uuro-kbv-izooosz and prescription medicines only as told by [...] provider. Document Revised: 11/30/2021 Document Reviewed: 11/30/2021 [employer] Patient Education ? 2023 [employer]. Infectious Disease Oral Thrush, Adult Oral thrush, [...] difficulty fighting infection (more content not included)... [facility] 09-24-2024 Note Patient Education Ma terials Follows:Disease [...] these instructions at home: Medicines ? Take smfc-wwx-xdptufo and prescription medicines only as told by [...] and water are not available, use hand vice president of compliance. ? Do not touch your eyes, nose, [...] may represent a (more content not included)... [facility] 09-10-2024 History of Present illness Narrative Reason [...] nursing note reviewed. Exam conducted with a dye line operator present. Vitals: Estimated body mass index is [...] Cole Alonso DO documented in this encounter [facility] 08-08-2024 History of Present illness Narrative [...] Cole Alonso DO documented in this encounter [facility] 07-10-2024 History of Present illness Narrative [...] Magnolia Renetta as a child Endometriosis Mother Mganolia Renetta Diabetes Mother Magnolia Renetta Depression Father [...] nursing note reviewed. Exam conducted with a dye line operator present. Vitals: Estimated body mass index is [...] and stay away from [facility]. Patient has been consulted regarding any further [...] Cole Alonso DO documented in this encounter [facility] 07-05-2024 Note Patient Education Ma terials [...] and use condoms. General instructions ? Take pkyv-pth-gqcfhqo and prescription medicines only as told by [...] provider. Document Revised: 02/19/2021 Document Reviewed: 02/19/2021 [employer] Patient Education ? 2023 [employer]. [facility] 06-07-2024 History of Present illness Narrative Reason [...] both done at the same time at [facility] at 10 weeks . Pt desires zofran due to nausea in this . Follow Up: Patient is to have labs drawn at directed and return to office for initial OB appointment with provider. Patient may call office as needed with any concerns or questions. Nurse Visit Completed by: Bernadette Reeder MA documented in this encounter [facility] 05-28-2024 Note Education Materials Orthopedics Muscle [...] not too tight. General instructions ? Take hvgt-gyh-genroth and prescription medicines only as told by [...] provider. Document Revised: 11/09/2021 Document Reviewed: 11/09/2021 [employer] Patient Education ? 2023 [employer]. Sciatica Sciatica is pain, weakness, tingling, or [...] (pelvis). ? . (more content not included)... [facility] 05-28-2024 Note Patient Education Ma terials Follows: [facility] 05-08-2024 History of Present illness Narrative Reason [...] Cole Alonso DO documented in this encounter [facility] 04-24-2024 History of Present illness Narrative Images from the original note were not included. documented in this encounter [facility] 10-06-2023 History of Present illness [...] nursing note reviewed. Exam conducted with a dye line operator present. Vitals: Estimated body mass index is [...] and medication was sent to [facility] in [place]. Documented by Rose Latham LPN on behalf [...] syndrome) Polycystic ovaries [facility] Diagnosis Third trimester state, incidental 32 weeks gestation of [facility] Diagnosis Third trimester state, incidental 34 weeks gestation of Gestational diabetes mellitus (GDM) affecting Gestational diabetes mellitus (GDM), antepartum, gestational diabetes method of control unspecified documented in this encounter [facility]ructionsNot on filedocumented in this [facility] SystemInstructionsNot on filedocumented in this [facility] Summary Purpose Family History [...] third molar tooth Kenya Richter, DDS [address] [place] [address] Referral ID Status Reason Start Date Expiration Date V isits Requested Visits Authorized [id number] Pending Review 04/24/2024 04/24/2025 1 1 Scheduling [...] your procedure, you will be contacted with [id number] costs or next steps. All self-pay payments [...] the procedure: You also MUST have a chassis driver/escort >18yrs old present to take you [...] section and content) DATE CREATED AUTHOR 01/08/2022 [facility] DATE CREATED AUTHOR AUTHOR'S ORGANIZ ATION 09/23/2024 [facility] DATE CREATED AUTHOR AUTHOR'S ORGANIZ ATION 11/24/2024 [facility] DATE CREATED AUTHOR AUTHOR'S ORGANIZ ATION 11/24/2024 [facility] DATE CREATED AUTHOR AUTHOR'S ORGANIZ ATION 12/04/2024 [facility] DATE CREATED AUTHOR AUTHOR'S ORGANIZ ATION 12/05/2024 [facility] DATE CREATED AUTHOR AUTHOR'S ORGANIZ ATION 12/08/2024 [facility] Reason for Visit (unrecogniz ed section and content) Reason Comments Discuss cycles Reason Comments Amenorrhea Reason Comments Routine Visit Reason Comments Well Women Visit Routine Visit STI Screening Reason Comments Abdominal Pain Reason Comments polyhydramnios Reason Comments Routine Visit Care Teams (unrecognized sec tion and content) Seismograph Shooter Relationship Specialty Start Date End Date Radha Gomez MD [address] [place] [id number] PCP - General Pediatrics 10/06/23 Seismograph Shooter Relationship Specialty Start Date End Date Radha Gomez MD [address] [place] [address] [id number] PCP - General Pediatrics 10/06/23 Seismograph Shooter Relationship Specialty Start Date End Date Radha Gomez MD [address] [place] [address] [id number] PCP - General Pediatrics 10/06/23 Seismograph Shooter Relationship Specialty Start Date End Date Radha Gomez MD [address] [place] [address] [id number] PCP - General Pediatrics 10/06/23 Seismograph Shooter Relationship Specialty Start Date End Date Radha Gomez MD [address] [place] [address] [id number] PCP - General Pediatrics 10/06/23 Seismograph Shooter Relationship Specialty Start Date End Date Radha Gomez MD [address] [place] [address] [id number] PCP - General Pediatrics 10/06/23 Seismograph Shooter Relationship Specialty Start Date End Date Radha Gomez MD [address] [place] [address] [id number] PCP - General Pediatrics 10/06/23 Seismograph Shooter Relationship Specialty Start Date End Date Radha Gomez MD [address] [place] [address] [id number] PCP - General Pediatrics 10/06/23 Seismograph Shooter Relationship Specialty Start Date End Date Radha Gomez MD [address] [place] [address] [id number] PCP - General Pediatrics 10/06/23 Seismograph Shooter Relationship Specialty Start Date End Date Radha Gomez MD [address] [place] [address] [id number] PCP - General Pediatrics 10/06/23 Seismograph Shooter Relationship Specialty Start Date End Date Radha Gomez MD [address] [place] [address] [id number] PCP - General Pediatrics 10/06/23 Seismograph Shooter Relationship Specialty Start Date End Date Radha Gomez MD [address] [place] [address] [id number] PCP - General Pediatrics 10/06/23 Seismograph Shooter Relationship Specialty Start Date End Date Radha Gomez MD [address] [place] [address] [id number] PCP - General Pediatrics 10/06/23 Seismograph Shooter Relationship Specialty Start Date End Date Radha Gomez MD [address] [place] [address] [id number] PCP - General Pediatrics 10/06/23 Seismograph Shooter Relationship Specialty Start Date End Date Radha Gomez MD [address] [place] [address] [id number] PCP - General Pediatrics 10/06/23 FOR RECORDS [...] BE BASED ON THE PRIMARY CLINICAL RECORDS. [facility] [employer] [facility]. provides no warranty or guarantee of the accuracy or completeness of information in this document.
== END 2024-12-10 11:42 | disposition home or self-care (01) ==
LOC: US 10:58 → FBC 11:00
PROVIDERS: PCP Family Medicine; Visit Provider Obstetrics & Gynecology
DX: O24.419 Gestational diabetes mellitus in pregnancy, unspecified control (principal); O40.3XX0 Polyhydramnios, third trimester, not applicable or unspecified; Z3A.35 35 weeks gestation of pregnancy
CPT/HCPCS: 76818

== ENCOUNTER 2024-12-13 09:56 | Outpatient (OUT) | payer MEDICAID, SELFPAY ==
[2024-12-13 10:00] VITALS: BP 157/82; PULSE 85
--- OUTSIDE RECORDS SUMMARY | 2024-12-13 10:16 | XMS_ITS | CCD ---
Author Organization [facility] Care Team Providers Care Chemist Physical Name Role Phone Radha Gomez MD Primary Care Provider Unavailable Primary Care Provider UnavailKENYA Gonzales Attending Unavailable PROVIDER, UNKNOWN Admitting Unavailable Unavailable Primary Care Provider Unavailbety e CELESTE, COLE R Referring Unavailable CELESTE, COLE R Referring Unavailable CELESTE, COLE R Referring Unavailable AHMET SOLER Attending Unavailable ANGEL LUIS EVANS Attending Unavailable ANGEL LUIS EVANS Attending Unavailable Radha Gomez Primary Care Unavailable Cheung, Evonne L Admitting Unavailable Cheung, [...] CELESTE, COLE R Attending Unavailable CELESTE, COLE Attending Unavailable CELESTE, COLE Attending Unavailable CELESTE, COLE Attending Unavailable CELESTE, COLE Attending Unavailable FAVIAN, EMILY Attending Unavailable CELESTE, COLE Attending Unavailable FAVIAN, EMILY Attending Unavailable CELESTE, COLE Attending Unavailable FAVIAN, EMILY Attending Unavailable CELESTE, COLE Attending Unavailable Allergies Allergy Classification Reported Allergen(s) Allergy Type Date of Onset Reaction(s) Facility (1 source) No Known Medication Allergies; Translations: [No Known Medication Allergies] Propensity to adverse reactions to drug (disorder) [facility] Repository Medications Current Medications Medication Drug [...] aspirin 81 mg delayed release oral tablet (14 sources) Platelet Aggregation Inhibitor, Nonsteroidal Anti-inflammatory Drug take 1 tablet by mouth in the morning aspirin 81 MG EC tablet Take 81 mg by mouth in the morning. Active aspirin 81 mg ch ewable tablet Chew 1 tablet (81 mg total) and swallow in the morning. Active blood-glucose meter mis (1 source) Start: 11-22-2024 blood-glucose meter misc Indications: Polyhydramnios affecting in third trimester Check blood glucose using meter. Dispense per insurance preference 1 each 11/22/2024 Active insulin isophane, human 100 unt/ml injectable suspension (6 sources) Start: 12-04-2024 End: 01-03-2025 inject 5 [IU] by subcutaneous injection in the morning insulin NPH, Isophane, (HumuLIN N,NovoLIN N) 100 UNIT/ML injection Indications: Gestational Diabetes Inject 5 Units under the skin in the morning and 5 Units in the evening. Inject before meals. 3 mL 12/04/2024 01/03/2025 Active insulin isophane, human 70 unt/ml / insulin, regular, human 30 unt/ml injectable suspension (6 sources) Insulin Start: 12-04-2024 End: 01-03-2025 inject 5 [IU] by subcutaneous injection in the morning insulin NPH-insulin regular (NovoLIN) (70-30) 100 UNIT/ML injection Indications: Gestational Diabetes Inject 5 Units under the skin in the morning and 5 Units in the evening. Inject before meals. 3 mL 12/04/2024 01/03/2025 Active magnesium oxide 400 mg oral tablet (11 sources) Start: 11-07-2024 End: 11-07-2025 take 1 [...] MV & Min w/FA-DHA ( GUMMIES PO) (10 sources) MV & Mi n w/FA-DHA ( GUMMIES PO) Take by mouth Active Completed/Discontinued Medications Medication Drug Class(es) Dates Sig (Normalized) Sig (Original) clotrimazole 10 mg oral lozenge (6 sources) Azole Antifungal Start: 10-06-2024 End: 10-22-2024 clotrimazole (Mycelex) 10 MG jacob 1 lozenge(s), Oral, 5x/Day, x 10 day(s), # 50 lozenge(s), 0 Refill(s), 10/16/24 8:59:00 AM PLASTICS ENGINEER, Pharmacy: [facility] [id number], 1 lozenge(s) Oral 5x/Day,x10 day(s), 170.18, cm, [...] [34 weeks gestation of ] 12-04-2024 Episodic Residual codes; unclassified (2 sources) Gestation period, 35 weeks; Translations: [35 weeks gestation of ] 12-11-2024 Episodic Past or Other Problems Problem Classification Problem Date Documented Da te Episodic/Chronic Administrative/social admission (20 sources) Patient encounter status; Translations: [Person consulting for explanation of examination or test findings] Onset: 11-03-2023 11-03-2023 Episodic Disorders of teeth and jaw (4 sources) Tooth eruption disorder; Translations: [Disturbances in tooth eruption] Onset: 04-24-2024 04-24-2024 Episodic Results Test Name Value Interpretation Reference Range Facility Outside Recordson 12-11-2024 Outside Records [id number] [facility] [id number][facility] (dipstick) panel (U)on 12-11-2024 Bilirubin, UA Negative Negative - 4(70) +++ mg/dL [facility] Blood, UA Negative Negative - 50 Osvaldo/mcL [facility] Clarity, UA Clear [facility] Color, UA Yellow [facility] Glucose, UA Negative Negative - 1999(110) ++++ mg/dL [facility] Interpretation and review of laboratory results Normal [facility] Ketones, UA Negative Negative - 160(16) ++++ mg/dL [facility] Leukocytes, UA Negative Negative - 500+++ Edison/mcL [facility] Nitrite, UA Negative Negative - Positive [facility] pH, UA 6 5 - 9 [facility] Protein, UA Negative Negative - 1999(20) ++++ mg/dL [facility] Spec Grav, UA 1.025 1 - 1.03 [facility] Urobilinogen, UA 1.0 0.2 - 12 mg/dL [facility] US OB BPP W NON-STRESS on 12-10-2024 [place] [address] Ultrasound Report Signed Patient: SHERLY ASTUDILLO MR#: [id number] : 2000 Acct:[id number] Age/Sex: 24 / F ADM Date: 12/10/24 Loc: US Attending Dr: Cole Alonso D.O. Ordering Physician: Cole Alonso D.O. Date of Service: 12/10/24 Procedure(s): US OB BPP w non-stress Accession Number(s): [id number] cc: RADHA GOMEZ ; Cole Alonso D.O. [place] [address] Patient Name: SHERLY ASTUDILLO MRN: [facility]:[id number] date: 2000 Sex: F Assigned Patient Location: Current Patient Location: Accession/Order Number: [id number] Exam Date: 12/10/2024 13:07 Report Date: 12/10/2024 13:08 At the request of: COLE ALONSO DO Procedure: US OB BPP w non-stress Biophysical profile. Reason for exam: Excessive growth. COMPARISON: BPP 11/19/2024. TECHNIQUE: Transabdominal imaging of the gravid uterus was obtained. FINDINGS: [employer] reports a BPP of 8 out of 8. Abnormal JET of 29.8 cm. heart rate 131 bpm. US/US OB BPP w non-stress IMPRESSION: BPP 8 out of 8. Polyhydramnios. Impression dictated by: Alexy Sparks Jr., D.O.12/10/2024 1:08 PM Dictation Location: [place] [address] Electronically authenticated by: [id number] Y Date: 12/10/2024 13:08 Dictated By: Alexy Sparks M.D. Signed By: 12/10/24 1310 DD/ 1308 TD/TT: Osteopathic Resident: [facility] Radiology, Radiologi MD juan carlos - 12/10/2024 [place] [address] Ultrasound Report Signed Patient: SHERLY ASTUDILLO MR#: [id number] : 2000 Acct:[id number] Age/Sex: 24 / F ADM Date: 12/10/24 Loc: US Attending Dr: Cole Alonso D.O. Ordering Physician: Cole Alonso D.O. Date of Service: 12/10/24 Procedure(s): US OB BPP w non-stress Accession Number(s): [id number] cc: RADHA GOMEZ ; Cole Alonso D.O. The [place] [address] Patient Name: SHERLY ASTUDILLO MRN: [facility]:[id number] date: 2000 Sex: F Assigned Patient Location: Current Patient Location: Accession/Order Number: [id number] Exam Date: 12/10/2024 13:07 Report Date: 12/10/2024 13:08 At the request of: COLE ALONSO DO Procedure: US OB BPP w non-stress Biophysical profile. Reason for exam: Excessive growth. COMPARISON: BPP 11/19/2024. TECHNIQUE: Transabdominal imaging of the gravid uterus was obtained. FINDINGS: [employer] reports a BPP of 8 out of 8. Abnormal JET of 29.8 cm. heart rate 131 bpm. US/US OB BPP w non-stress IMPRESSION: BPP 8 out of 8. Polyhydramnios. Impression dictated by: Alexy Sparks Jr., D.O.12/10/2024 1:08 PM Dictation Location: [place] [address] Electronically authenticated by: [id number] Y Date: 12/10/2024 13:08 Dictated By: Alexy Sparks M.D. Signed By: 12/10/24 1310 DD/ 1308 TD/TT: Osteopathic Resident: [facility] [employer] Radiology Study observation (narrative) [facility] US OB BPP W NON-STRESS Ordered By: Radiologist Radiology on 12-10-2024 [facility] [employer] Work Phone: Outside Recordson 12-05-2024 Outside Records [id number]#1.00O TGTIFF [facility] Office Visiton 12-03-2024 Follow-up visit [id number] Sherly Astudillo 2000 F Date Provider Department Center 12/03/2024 [address]30[address]-LRYEZIANGEL LUIS EVANS [facility] Family History Problem Relation Age of Onset Diabetes Mother Diabetes Maternal Grandmother Diabetes Maternal Grandfather Family Status - Relation Status Age at Mother Maternal Grandmother Maternal Grandfather Level of Service:94372 [place] OFFICE/OUTPATIENT ESTABLISHED LOW MDM 20 MIN Reason for Visit and Comments: Hypertension [411825] Hyperlipidemia [182] Normal [facility] US OB BPP W NON-STRESS on 12-03-2024 [place] [address] Ultrasound Report Signed Patient: SHERLY ASTUDILLO MR#: [id number] : 2000 Acct:[id number] Age/Sex: 24 / F ADM Date: 12/03/24 Loc: US Attending Dr: Cole Alonso D.O. Ordering Physician: Cole Alonso D.O. Date of Service: 12/03/24 Procedure(s): US OB BPP w non-stress Accession Number(s): [id number] cc: RADHA GOMEZ ; Cole Alonso D.O. The [address] [address] Patient Name: SHERLY ASTUDILLO MRN: [facility]:[id number] date: 2000 Sex: F Assigned Patient Location: [facility] Current Patient Location: Accession/Order Number: [id number] Exam Date: 12/03/2024 14:34 Report Date: 12/03/2024 [...] Robert Hui M.D.12/03/2024 2:36 PM Dictation Location: [facility] Electronically authenticated by: [id number] Y Date: 12/03/2024 14:36 Dictated By: Robert Hui D.O. Signed By: 12/03/24 1438 DD/ 35 TD/TT: Osteopathic Resident: [facility] Radiology, Radiologi MD juan carlos - 12/03/2024 The [place] [id number] Ultrasound Report Signed Patient: SHERLY ASTUDILLO MR#: [id number] : 2000 Acct:[id number] Age/Sex: 24 / F ADM Date: 12/03/24 Loc: US Attending Dr: Cole Alonso D.O. Ordering Physician: Cole Alonso D.O. Date of Service: 12/03/24 Procedure(s): US OB BPP w non-stress Accession Number(s): [id number] cc: RADHA GOMEZ ; Cole lAonso D.O. [place] [id number] Patient Name: SHERLY ASTUDILLO MRN: [id number]:[id number] date: 2000 Sex: F Assigned Patient Location: [facility] Current Patient Location: Accession/Order Number: [id number] Exam Date: 12/03/2024 14:34 Report Date: 12/03/2024 [...] Robert Hui M.D.12/03/2024 2:36 PM Dictation Location: [employer] Electronically authenticated by: [id number] Y Date: 12/03/2024 14:36 Dictated By: Robert Hui D.O. Signed By: 12/03/24 1438 DD/ 143 TD/TT: Osteopathic Resident: [facility] Radiology Study observation (narrative) [facility] US OB BPP W NON-STRESS Ordered By: Radiologist Radiology on 12-03-2024 [facility] Work Phone: Outside Record[facility] 11-27-2024 Outside Records [id number]#1.00O [facility] US OB BPP W NON-STRESS on 11-26-2024 [place] [address] Ultrasound Report Signed Patient: SHERLY ASTUDILLO MR#: [id number] : 2000 Acct:[id number] Age/Sex: 24 / F ADM Date: 11/26/24 Loc: US Attending Dr: Cole Alonso D.O. Ordering Physician: Cole Alonso D.O. Date of Service: 11/26/24 Procedure(s): US OB BPP w non-stress Accession Number(s): [id number] cc: RADHA GOMEZ ; Cole Alonso D.O. The [address] [address] Patient Name: SHERLY ASTUDILLO MRN: [facility]:[id number] date: 2000 Sex: F Assigned Patient Location: US Current Patient Location: Accession/Order Number: [id number] Exam Date: 11/26/2024 14:21 Report Date: 11/26/2024 14:21 At the request of: COLE ALONSO DO Procedure: US OB BPP w non-stress Biophysical profile. Reason for exam: Excessive growth. COMPARISON: BPP 11/19/2024. TECHNIQUE: Transabdominal imaging of the gravid uterus was obtained. FINDINGS: [employer] reports a BPP of 8 out of 8. Normal JET of 22.6 cm. heart rate 146 bpm. US/US OB BPP w non-stress IMPRESSION: BPP 8 out of 8. Impression dictated by: Alexy Sparks Jr., D.O.11/26/2024 2:21 PM Dictation Location: [place] [address] Electronically authenticated by: [id number] Y Date: 11/26/2024 14:21 Dictated By: Alexy Sparks M.D. Signed By: 11/26/24 1424 DD/ 1421 TD/TT: Osteopathic Resident: [facility] RadiologyAnjanaogparam rangel MD - 11/26/[address] [address] Ultrasound Report Signed Patient: SHERLY ASTUDILLO MR#: [id number] : 2000 Acct:[id number] Age/Sex: 24 / F ADM Date: 11/26/24 Loc: US Attending Dr: Cole Alonso D.O. Ordering Physician: Cole Alonso D.O. Date of Service: 11/26/24 Procedure(s): US OB BPP w non-stress Accession Number(s): [id number] cc: RADHA GOMEZ ; Cole Alonso D.O. [address] [address] Patient Name: SHERLY ASTUDILLO MRN: [id number]:[id number] date: 2000 Sex: F Assigned Patient Location: US Current Patient Location: Accession/Order Number: [id number] Exam Date: 11/26/2024 14:21 Report Date: 11/26/2024 14:21 At the request of: COLE ALONSO DO Procedure: US OB BPP w non-stress Biophysical profile. Reason for exam: Excessive growth. COMPARISON: BPP 11/19/2024. TECHNIQUE: Transabdominal imaging of the gravid uterus was obtained. FINDINGS: [employer] reports a BPP of 8 out of 8. Normal JET of 22.6 cm. heart rate 146 bpm. US/US OB BPP w non-stress IMPRESSION: BPP 8 out of 8. Impression dictated by: Alexy Sparks Jr., D.O.11/26/2024 2:21 PM Dictation Location: [place] [address] Electronically authenticated by: [id number] Y Date: 11/26/2024 14:21 Dictated By: Alexy Sparks M.D. Signed By: 11/26/24 1424 DD/ 142 TD/TT: Osteopathic Resident: [facility] Radiology Study observation (narrative) [facility] US OB BPP W NON-STRESS Ordered By: Radiologist Radiology on 11-26-2024 [facility] Work Phone: Legal Documentson 11-20-2024 Legal Documents [id number]#1.00O TGTIFF [facility] Urinalysis macro (dipstick) panel (U)on 11-20-2024 Bilirubin, UA Negative Negative - 4(70) +++ mg/dL [facility] Blood, UA Negative Negative - 50 Osvaldo/mcL [facility] Color, UA Yellow [facility] Glucose, UA Negative Negative - 1999(110) ++++ mg/dL [facility] Interpretation and review of laboratory results Normal [facility] Ketones, UA Negative Negative - 160(16) ++++ mg/dL [facility] Leukocytes, UA Negative Negative - 500+++ Edison/mcL [facility] Nitrite, UA Negative Negative - Positive [facility] pH, UA 6.5 5 - 9 [facility] Protein, UA Negative Negative - 1999(20) ++++ mg/dL [facility] Spec Grav, UA 1.02 1 - 1.03 [facility] Urobilinogen, UA 0.2 0.2 - 12 mg/dL [facility] Outside Recordson 11-13-2024 Outside Records [id number]#1.00O TGTIFF [facility] US OB BPP W NON-STRESS on 11-12-2024 [place] [address] Ultrasound Report Signed Patient: SHERLY ASTUDILLO MR#: [id number] : 2000 Acct:[id number] Age/Sex: 24 / F ADM Date: 11/12/24 Loc: US Attending Dr: Cole Alonso D.O. Ordering Physician: Cole Alonso D.O. Date of Service: 11/12/24 Procedure(s): US OB BPP w non-stress Accession Number(s): [id number] cc: RADHA GOMEZ ; Cole Alonso D.O. The [place] [id number] Patient Name: SHERLY ASTUDILLO MRN: [id number]:[id number] date: 2000 Sex: F Assigned Patient Location: US Current Patient Location: Accession/Order Number: [id number] Exam Date: 11/12/2024 13:57 Report Date: 11/12/2024 13:58 At the request of: COLE ALONSO DO Procedure: US OB BPP w non-stress BIOPHYSICAL PROFILE: CLINICAL INFORMATION: Excessive growth COMPARISON: Pelvic ultrasound 06/07/2024 There is a single live intrauterine gestation in breech presentation. The reported gestational age is 31 weeks 3 days. The heart rate [id number] beats per minute. FINDINGS: TONE: 1 or [...] is in upper normal range. Total score: 8/ US/US OB BPP w non-stress IMPRESSION: NORMAL BIOPHYSICAL PROFILE Impression dictated by: Bailey Beasley M.D.11/12/2024 1:58 PM Dictation Location: [place] [address] Electronically authenticated by: [id number] Y Date: 11/12/2024 13:58 Dictated By: Bailey Beasley M.D. Signed By: 11/12/24 1401 DD/ 1358 TD/TT: Osteopathic Resident: [facility] Radiology, Radiologi MD juan carlos - 11/12/2024 [place] [address] Ultrasound Report Signed Patient: SHERLY ASTUDILLO MR#: [id number] : 2000 Acct:[id number] Age/Sex: 24 / F ADM Date: 11/12/24 Loc: US Attending Dr: Cole Alonso D.O. Ordering Physician: Cole Alonso D.O. Date of Service: 11/12/24 Procedure(s): US OB BPP w non-stress Accession Number(s): [id number] cc: RADHA GOMEZ ; Cole Alonso D.O. The [address] [id number] Patient Name: SHERLY ASTUDILLO MRN: [facility]:[id number] date: 2000 Sex: F Assigned Patient Location: US Current Patient Location: Accession/Order Number: [id number] Exam Date: 11/12/2024 13:57 Report Date: 11/12/2024 13:58 At the request of: COLE ALONSO DO Procedure: US OB BPP w non-stress BIOPHYSICAL PROFILE: CLINICAL INFORMATION: Excessive growth COMPARISON: Pelvic ultrasound 06/07/2024 There is a single live intrauterine gestation in breech presentation. The reported gestational age is 31 weeks 3 days. The heart rate [id number] beats per minute. FINDINGS: TONE: 1 or [...] Bailey Beasley M.D.11/12/2024 1:58 PM Dictation Location: [place] [address] Electronically authenticated by: [id number] Y Date: 11/12/2024 13:58 Dictated By: Bailey Beasley M.D. Signed By: 11/12/24 1401 DD/ 1358 TD/TT: Osteopathic Resident: [facility] Radiology Study observation (narrative) [facility] OB BPP W NON-STRESS Ordered By: Radiologist Radiology on 11-12-2024 [facility] Work Phone: Outside Recordson 11-09-2024 Outside Records [id number]#1.00O TGTIFF [facility] Urinalysis macro (dipstick) panel (U)on 11-06-2024 Bilirubin, UA Negative Negative - 4(70) +++ mg/dL [facility] Blood, UA Negative Negative - 50 Osvaldo/mcL [facility] Clarity, UA Clear [facility] Color, UA Yellow [facility] Glucose, UA Negative Negative - 1999(110) ++++ mg/dL [facility] Interpretation and review of laboratory results Normal [facility] Ketones, UA Negative Negative - 160(16) ++++ mg/dL [facility] Leukocytes, UA Negative Negative - 500+++ Edison/mcL [facility] Nitrite, UA Negative Negative - Positive [facility] pH, UA 6.5 5 - 9 [facility] Protein, UA Negative Negative - 1999(20) ++++ mg/dL [facility] Spec Grav, UA 1.02 1 - 1.03 [facility] Urobilinogen, UA 0.2 0.2 - 12 mg/dL [facility] Office/Clinic Noteon 025 Office/Clinic Note Patient: SHERLY [...] 124.010 kg Body Mass Index 42.82 kg/m2 [place] Body Weight Calculated 61.6 kg BSA Measured [...] lesion. Impression and Plan Diagnosis Tinea corporis (NYI71-OE B35.4). Plan: Will treat with topical antifungal over the next 7 to 10 days.. Orders Orders Pharmacy: ketoconazole 2% topical cream (Prescribe): 1 zoran, Topical, Daily, for 10 day(s), 30 gm, 0 Refill(s). Orders Evaluation and Management: 58031 Office visit - established pt, Level 3 (Order): 10/25/2024 13:24 EST, Qty: 1, Tinea corporis - Eustachian tube dysfunction. Diagnosis Eustachian tube dysfunction (WIY74-AJ H69.90). Course: Discussed with patient most likely some fluid behind her ear. No evidence infection. Continue to just observe.. [Electronically Signed on: 10/25/2024 14:14 EST] Radha Gomez MD [Verified on: 10/25/2024 14:14 EST] [facility] WITH AUTO DIFFon BASOPHILS ABSOLUTE AUTO 0 [facility] Basophils/100 WBC (Bld) 0.3 % 0.2 - 2.0 % [facility] Eosinophils/100 WBC (Bld) 2.1 % 0.9 - 7.0 % [facility] Erythrocyte distribution width (RBC) [Ratio] 14.3 % 11.0 - 15.0 % [facility] Hematocrit (Bld) [Volume fraction] 32.1 % Low 36.0 - 48.0 % [facility] Hemoglobin (Bld) [Mass/Vol] 10.5 g/dL Low 12.0 - 16.0 g/dL [facility] IMMATURE GRANULOCYTES ABS AUTO 0.34 High [facility] Immature granulocytes/100 WBC (Bld) 3.4 % High 0.0 - 0.5 % [facility] Interpretation and review of laboratory results Abnormal [facility] LYMPHOCYTES ABSOLUTE AUTO 2.4 [facility] Lymphocytes/100 WBC (Bld) 24 % 20.5 - 60.0 % [facility] MCH (RBC) [Entitic mass] 27.9 pg 26.7 - 34.0 pg [facility] MCHC (RBC) [Mass/Vol] 32.7 g/dL 29.9 - 35.2 g/dL [facility] MCV (RBC) [Entitic vol] 85.4 fL 81.0 - 99.0 fL [facility] MONOCYTES ABSOLUTE AUTO 0.4 [facility] Monocytes/100 WBC (Bld) 4.2 % 1.7 - 12.0 % [facility] NEUTROPHILS ABSOLUTE AUTO 6.7 High [facility] Neutrophils/100 WBC (Bld) 66 % 43.0 - 75.0 % [facility] Platelet mean volume (Bld) [Entitic vol] 9 fL Low 9.5 - 13.5 fL [facility] TBH EO # 0.2 [facility] TBH PLT 332 [facility] TB RBC 3.76 Low [facility] TB WBC 10.1 [facility] Office Visiton 10-24-2024 Follow-up visit [id number] Sherly Astudillo 2000 F Date Provider Department Center 10/24/2024 [address]1529-MGRZNMANGEL LUIS EVANS Family History Problem Relation Age of Onset Diabetes Mother Diabetes Maternal Grandmother Diabetes Maternal Grandfather Family Status - Relation Status Age at Mother Maternal Grandmother Maternal Grandfather Level of Service:50793 [place] OFFICE/OUTPATIENT NEW MODERATE MDM 45 MINUTES Reason for Visit and Comments: Rapid Heart Rate [966938] - Episodes of tachycardia include lightheadedness and SOB. Denies chest pain. She says sometimes HR gets up to 160's with rest. Problem [965505] - Currently 28 weeks gestation. This is her 2nd . She denies having issues like this during first . Palpitations [621276] Shortness of Breath [001759] Dizziness [646908] Normal [facility] Urinalysis macro (dipstick) panel (U)on 10-22-2024 Bilirubin, UA Negative Negative - 4(70) +++ mg/dL [facility] Blood, UA Negative Negative - 50 Osvaldo/mcL [facility] Clarity, UA Clear [facility] Color, UA Yellow [facility] Glucose, UA Negative Negative - 1999(110) ++++ mg/dL [facility] Interpretation and review of laboratory results Normal [facility] Ketones, UA Negative Negative - 160(16) ++++ mg/dL [facility] Leukocytes, UA Negative Negative - 500+++ Edison/mcL [facility] Nitrite, UA Negative Negative - Positive [facility] pH, UA 7 5 - 9 [facility] Protein, UA Negative Negative - 2000(20) ++++ mg/dL [facility] Spec Grav, UA 1.015 1 - 1.03 [facility] Urobilinogen, UA 0.2 0.2 - 12 mg/dL [facility] C Throaton 10-08-2024 C Throat Normal throat justine isolated No pathogens isolated Normal [facility] Comment on above: Performed By: #### [id number] ####[facility] (DEFAULT)[address] [place] [address] Coding Summaryon 10-08-2024 Coding Summary HTMLBase 64 UoktbbnbHHt2mNz+PGhlYWQ +PG4FFXSdZ58pwOYzcU4zT0 NMTElOSywgQVBQTElOSyIgb xEmJJ0ebRXuSIRm IC8+IC8gPRZtXeuuhBRzt1L 2kSH2L79ykm5hFUcxmKC2EN JhFhAnygghh1lczDd5TUyqM mluOyBt GZYtfG99RBO3mS06Lb95dUO uxHYfr4mwoMt1BkOxEQUmEB N0eFkuQZiwy9OjVAXjH14wk OTkm6U7 COAhcBbefBThCyBjyOC5aT0 dRAuibgspz0vstvvrRqx0qs 61xNWqo9G3iST2Q4NxspB6M GJvbGQg FurqtKYBeC1ziznbl0xbcah gGuFtAOLpDDt6FRr8EEKozU jxSiYnMF73CMI8DXVtdqLqU 2FsLWFs yNfaSxY6a4N1Io9AI8XXUro dI9OSGKECHOupeGY+PC90cj 29Z1FjFmxiJqf1LTBhDZC9t KB6wX2l JIVlNUmui5Z2jCX3T8LybcL odc8ol3loUKNpNOviH04frS Exx0X0VYOvtEM3FCVviUawR iBzaG93 Oyc+JISgxXmnl3RpHujgy6j gs3aphXg8CbyvEXSzyoWdzR ffZZN1a5CkJc4nUCBnkUX8i KZ2nW7w XrJtHiQ3JCrrB733EfPanTZ bDfmbL21wK8UvxHI+PHRyPj v0PWNbbRpdEQ5qH2AfUICnp mctbGVm xDyuOK6aACKchdqsYZKbyT6 bECRfX3t9UkDvEaV0MXoiF6 ZuGQAvbdkoXo97xA5tEyYwE xQ3UMrp G0WxzxO0SMPtpGYcFMayTLC 3B70xx3H9QPExEIImONB4eM W5wO0mvLrdiinqnAMpwHxrx mVydGlj TLyfIRzpV347JZRzrWshLhA vZGluZyBEYXRlOiAgMDIvMD MvMjAyNTwvdGQ+XWOfEOA1p WxlPSAn xZNiBRsaVt0nfIyrmGrdKG0 tZFCfrjudQBDtcE9yTIXceI AvqZjbHW5oTFHkthjkt109Z iAxMHB0 XOZoiDPqP7LrdS7iOyIjOMK kYEVqC4SvdYYwKFbuA866BU xwNlR6HOFhiwHiT6AzUMUca WduOiB0 x2O3Yr5Ta9BocclbJ2CgqHH dDnGnLofpXOe5B2WzYotwgS I+PO88XXNwBA87XQa5XMW6j WxlPSdi SCCtE0LzaA6qNpQxUEMlLSL kOyc+PHRhYmxlIHdpZHRoPS iyLLRgAgSrkReoFK5nPr4zK GVyLWNv lXcwbOGwLeXdq9ylIGQaEVh uQX4mhEuyW8UgrXJ9SXOzu0 w5Yv02D12lB8VznNE+PGNvb XR3nQO3 rD5zDnBhOsM0UUccH481IeC yzLElVessg4iup3eekNi7Kf R7CXZrwdGgiVdbDXH9g2PyV e18L40d IHdpZHRoPSIxNSUiIHZhbGl rkv5ioP5uKw3+EJJahCR8nO O3kT5dEkMtIiF0DQneA480F nRvcCIv Gpwjr5syb7vpmDy5KqIgCCM rsuCxxWuyXJI3e7EiGq51L0 StlRkkh5RhHlp6pu74cATos 2C4pGQ7 Y4TmLWMkhavpwJUcrCcpCD9 jWLIzgsrjFVSipF5sVIUzH4 z4XtRwPkP7WNjpB7ZfsfC6R GJvbGQg OHWsiIWMgB6ukpxei2qomig xCwBlWIReTOn4FNp2DPOymB zfUaSrMMX4JfG4RBT5aOCww W4cjKxv celkmE5qQbp+ZGX5zUPkpWV QYZ8nDnwjjTE+TZUhTWF9sB lpHLmxZEDncJ9jSEQgE2l4J iAwLjA1 QHlhA9NjzqT4WARmgIRhPMA ntBFHfO6asxufz3cionatJs MeCPRjGYk2YNd5MWDarTmkR iBsZWZ0 TnT6YWJ5mHHuxP9fvMlzfwh ixY9gKhw+TmmjzUubQMX2HL u1L7PaFvd2DSQjqTdmSB5rp GFkZGlu Uv0ntDvxiGwzUR8mVTQprhf fs506VkJdn1qxJJAxaNWrIN tzKET6F85vh0D7CVMkDOYiU PB3gUY5 zT6zsNjtyjyihNYjrAepthI vjUusXTeaHSyqC919SDEauY zjByIoDCz1V4CjCah6TEDpf FcjMV6s zNQgIIisCe0qrSfwoMebCW2 mRIAycdfwy419ZgGlz3fuRX SmfBKeRNwtINH8R65hs6O4A CMwMDAw FVY3bHM4uD0ojDtuxvbfbZL mdDsgdmVydGljYWwtYWxpZ2 24NEUmiNztHiKspEz7R3GoX fk7KARj rZknFH2fhJLoLAdcEm9tjQp qaPrnNS5qFADijguem617Ny Rhj9hnHYScjCMfAOtbBZB5D 37lk0Z6 WAKvELLiOHJ4aQX9iG2bxBf nbjogbGVmdDsgdmVydGljYW kmIFtlO513SAZspTohQoIgo GllbnQg TAqtBXz2W1YuHyaxpPM+PC9 5YJGtRW07hQKdhZNxj7utsB g5XmEkWTMpXRC1pYhuNZfko 3JkZXIt F61viVJzi6G3HNVnxZcnqMZ fNbSnqTH1mN9sDIhvbgczg4 qpvasmRudqk2lozb81oG47Z 29sIHdp ZHRoPSIzMCUiIHZhbGlnbj0 blA8kHl9+LUBvgHU5kJD5jD 6kVNDmZrW2GAcuH796QjNcb CIvPjxj n6qrj6xyaTf3XwL9LTHefsD bhSziXKQ7x9KjZi28Y15mTV dpZHRoPSIyMCUiIHZhbGlnb q7aqJ7r Ii8+NRClkVK3kPN3pB8bGeX kKkO3NTuaJ198UdLnnERqYm vkF25mY2QxlAA+HZDzOzn0R CBzdHls RC2ojKVyIGzrTe9sBEG4CjZ pWgZeNFgfI4XmYCYmanjipe inxIP7CTNcLEFofL17Uc8xs DogMTBw qSYOzU0ubtjrg5skbjhlKnT zBZAlOQk9ODb2VZHweAvpIm ZpFOC7PlB6AIX2iMOsoM7sv Glnbjog uB4lV5YgPOOsmkpjNh14zL8 aLtVoDvI2PZmjMns+Q1JBV0 ZPUkQsIEJSRUFOTkUgTUlDS EVMTEU8 Z4SuGbv5WDNgoToqHQ6fsTM xHWngOw5rpJlfyZitXK1iZP WyyhcdJLCrzF3pSQIafNAwf KgdNM5a ZODbcaayt602LeIbOXM7ICC gdFJmA1YhqU5fItKnVQInQG RdD5ZdgDTlGQwdE195DGquK zC1SNGl xsVhL5VyXPGuqSdvSlG6z0D 6Sw2lUk7rOA9mVQj1JH73SE 79wRJpw6R5tQF0F6WrHWYts mctcmln pAE1WOPvZQCppF49bANgYFr tFw7tt4P3y349OWGhTEGuvS 43Pf6qwLkgRDVarDUEfU7us soqn5zw pwdaKaNaEVPsFVw5OUn8NXS grOrpOhIuDNL5BvL4ZDQ4lT HglN1ciNcqfdclhQ1eDxf+M jYgWWVh ntO9L1YaReb2IEGbaTnsZQ8 xeCUgPUxvYz6cvWfooQioDZ 3wMFKsgqqkDGQkoA8rDTVgo HRvbTog RJ0vAFBoqdoao946RmJtJJS 9RARhtPTaL5OkoR9qXtXeIE XvRZWnM1FnhHJeUJlmV466N GxlZnQ7 MKFkfqVbW0BwXVXvgKjmSeC 4e4G1Kn2IBK5KAYH3O1LwSt r9QWHjsYecRB9yuACbMVknP w6jzDuq hDbsPK8tDNXnpmbyPQQwfF9 wRYBzoVKpqVfbHA6bTYUcwv tej839StMhKFQ1NRJdrTGnG 0JbqN2w KyMxWRQoCRSeV7ImvPHpVFu bW054MEuzAvJ5BXGwaiIyA5 KmNJSkjOlvIrG0w2U6Jg9WB DwvdGQ+ IT48yd78N9UkLzknPrt5RRI mLYT8hMM6mC2lXQHnDRwon6 I8wBX8K8NiqiZvws1ek2adV XBzZTog R99jmNVsd1V2NTOwiSW0DVG klEwzHtEcqS78Tet+PGNvbG ucw6EdPaltn7dul8pqgVq2K jMwJSIg koPpxHegFZB7j7AgHd47Y60 sIHdpZHRoPSIzMCUiIHZhbG lxid4xoS3oJe5+PKQaqCF1z XP0yY4k AgObFoZ5CMplI757PdSzeBO hTdqej0iez4djhQg9JxFhXU SzjfZnnRmrDUB2s7UoLz28T 2NvbGdy h2WiFwo2tk27zSGnv3V0nMA 3Y0CfFYCyrcnkhKHyaAwtYZ 7dIOJzucmiAPMsaJ6hTSPhD 3x0FeZc MjE3RTjkM2RlqcN8LJDdeQD dTNAgyCAHwS2efcizt0qgia ykPrOjQZHvBUc4FEs2LHXin WduOiBs ELJ9XwF2XVD3wJKgbX7pdOp kiefobN1cUsr+LSi3f8gbyS VaOP3blQD0CN93BD78wGAtn 3S6xDK6 I9XoJDYqazjwaswghMX0FUZ gWSTtcE44To4ifJziYa8rHF SbXYU8FJCxiIZlG5AfoE1qW iAjMDAw XNHdD2JmqZBeWAjuT824SCl wViR8FLClhbYvX3HzEYBpmL bpSpV0c2M4Jm0SYD14LH79K L39vQNg s0I6gPP1W7RfMQDsovgabnr xwEC5YXPvIVYotX27Sj9cmD lbTj3aSALjFAR1KAYsaSArI 2LnmF7j MjMqAAJcDESvC7TfpDGgMTe fS287HQboAcC8KCAeasBgJ2 RvGTIxaOmtDzY1v0X6Dr3IV p80KZ82 WY57nXVfq5Q7yRE3Q3VxEAT fgvtukrwelNM6NJOuACJobI 43Ke6wrUiwTu6nDXAbIAC4R FRpbWVz M6MhqO4sZzFxUWYbLTOpK0Z ihGOhLKkxG951YSzzWiK8LN AebgElX5DbIDCckRfjHaK5f 6M9Jn2Q BLvcgfi9L5XxEqfyqCO+PC9 6GVZjEO49gDWdgRVcg1yiyM s6VpPwSMKoBOE5lUqyCXnoa 3JkZXIt Y29 (more content not included)... Normal [facility] POCT Rapid Strepon S. pyogenes Ag IA Ql (Unsp spec) Negative Invalid Interpretation Code [facility] Comment on above: Performed By: #### 9 [id number] #### [facility] (DEFAULT) [address] [place] [address] C Throaton 09-26-2024 C Throat Normal throat justine isolated No pathogens isolated Normal [facility] Comment on above: Performed By: #### 3 [id number] #### [facility] (DEFAULT) [address] [place] [id number] Coding Summaryon 09-26-2024 Coding Summary HTMLBase 64 MtsgqcybKHd4zIp+PGhlYWQ +DZ5NTSElO07pbKZajY3bS0 NMTElOSywgQVBQTElOSyIgb iZkLJ9baWKvPNUg IC8+PT5sXCAxZnwnlALni4S 0kAU7L49mhs5vQJtcsWS0NQ AbOtQicryxi8mcgZz6AYgnD mluOyBt NVTrlC28OOI0xC93Cq30uWD hoSUeh4qtyQg8HhFyNMUpWJ Q0oUbkLHgxj3KvAPUcT38ik PYsp0X5 WFClaDchrGOxXwNjkAN7vP9 hRCwtdreeq2qmsjbsEez7jn 50dJOem7O3rDE0X8CycvG5P GJvbGQg UellnDADbU5welliw5uzxht gLiWpCRVfVKg1ZMo7JOTmfJ ifGvEcNW37GPV3BEAwzaBgQ 2FsLWFs dLcuFtZ4r2V4Rd1OB9OZVeq jV6NRKCZKUNtpuXM+PC90cj 01W4ClYjuhBwx6JLIwJQD3o MJ0cE7b UYQmOLydg1G3qGY8F1GermB bxd4lo2egRKPeNDiwQ37edC Zye9H1AQVezJW1YPStxEurS iBzaG93 Oyc+CFOliAyig9HiRhzvb8h ef5ohlCw5FquqEFXmvpPnoB saWMO3x1RfWl3tBIYyiIC2e XU8kR9b DsBwLyX7DQhbY082DoLnvUR lLjypL96iW4XdcPL+PHRyPj w3TKXfmCtrOS8gW3VtPBDzc mctbGVm uGvzXF0cUMLmsjaeERAyuS2 lJZShI7j6TxJrAfK0FDdaD1 ZeWFCmwgqyVt68kH3cUoWrN nB2PQwl A9YzeiB4AANlfQQiBTgkBON 0A45ux0J9LGOhFBYfKVW7eJ J3mN7kpUfzfczpnTJgeDysu mVydGlj PMddMSebR604APBlnLkpUeU vZGluZyBEYXRlOiAgMDEvMj IvMjAyNTwvdGQ+TIJjIXZ6a WxlPSAn bRLkWQgfCa3zxCpfoHtrZQ5 rTLAzcbnjAYHanY6vYXVllC JkgHqoEU4uPYMfglztf924F iAxMHB0 RHPqcGFzO0JdlI4eDvCpVWF wTLYyZ0StlLXfKKxkA679CC kqOeI3TIQdmnRuF7TaPLKuw WduOiB0 y3E3Et6Pa4PcthpzV8JhxLI zSjInMhmcRIx7X5JuRkjwtC I+PB56PPDlIT25YPc0CDV6i WxlPSdi VYDsQ6DjvT1aAzYnCXZdEDG kOyc+PHRhYmxlIHdpZHRoPS stFXBuLjLzeBmiWQ6xBy6nL GVyLWNv xNojlRRiPqQru6dxHWBeQNm ePA9uzVdaY5ZmgMS8GUYmd5 t3Fv58L45gI5LvzGA+PGNvb OB9pDD6 vA0yTcLxRsD4JVstE409GrP yaLEeHlzrl2ptf1erjDy9Ve H5SVZmlwGrlWhxYCW8v9HlP c64R62x IHdpZHRoPSIxNSUiIHZhbGl zyn2cdN2bWk3+AEQzmPR4wB I2qO0lMxXxUlP8DOsxR103L nRvcCIv Zyujm2enn0tsmZk3HlCtMET kykQhcFzhZYU2n5AkMe56C8 KcaHccs4BxWrr8gs86eIFix 7O4cKI9 L1IeCMIzkqajcWSchOvtNA6 rFRFxrjhcKEFlzD9kUKDtO6 i7OyIoFyA5CMhaK7ZjltR5W GJvbGQg JIYlsTSInU0clxfga6monma mMrVfPHBkGQp2YSc6GUIprU lnLzFiCUY4NtP9ONF1mXJrr F2esXkn fihjlZ6eTrs+IXP7zMWrtWI HHY9nHvppbJO+YYCwHQL9yN inOHprSOUxlJ6gLXGdZ7a9X iAwLjA1 RTgjV3UribX7UUVmzXNzDKR dlOEMdW3ietdtb8hgrzsiTv QjROSgZNn1AHg4SJTjeEsqC iBsZWZ0 XyU7KHI7qAWjpX1zvOcasio iuX9xBrr+YnxcnOzgPPC6RG m5V4BvPmr7JUTmsKkqMI6pp GFkZGlu Ez9ciPjhoZdbHW9yHYEmram to679PgZhu8qaHGXetZBtQA lyFSL8R93jl3T9GRHmPKUeQ VT9tJH1 dT4hxTwvcbkyxZZvwHnipjO kjJhaZZrpTJoeO958OZNqzE ziNfKyZDb6S0PsItg7PHTup ZvuYO8c cQErXJeeDu7zbUsdcUocXM2 eIOFkuftpg960PpMgl2mlVT RnlDFvGMwjUXC7T03zj8N0O CMwMDAw IQC3vIB7tO7nqIavmrgyrHZ mdDsgdmVydGljYWwtYWxpZ2 77EUKstIkuMpSygQr5I4LoT nk7YKCs eKlbBN8jmQCmRDxzOs3woFn qqGmlPX4aGIVockjof515Pe Oif3boQKLqvVWmCXidXGL0H 07qp2H4 WWGrQVHuWSF4wRM4jZ3zxUc nbjogbGVmdDsgdmVydGljYW ifOSrjX283JPGjjLymLsGwt GllbnQg AYxeAEx9E2KjGbszuNZ+PC9 9RHUoJL70bTKmqDFtr0mjvL f2VdBhOTExFEQ3pEryHUfex 3JkZXIt N48adHMvm6Q1AVOzkIwpoLK sLoUkjKA6yZ3uGVhlnuxza5 osccazFvhsl3sicy85oU32M 29sIHdp ZHRoPSIzMCUiIHZhbGlnbj0 tqN0eEi5+MTFiaDI9hOY7cV 6qLXGdAoR4WPgxZ968AzEqb CIvPjxj r1oss6nmyQi6WrX8CMNdicV kaRtzEHU5n3RjYz29F57lEV dpZHRoPSIyMCUiIHZhbGlnb p5zyA3i Ii8+BBUijRQ8bUR9tC8sVqD oMvD1WOpaL163LyOhsDEqHw bzQ12iE2TelUX+HQZlRoh4U CBzdHls MB1rsFIbFCjtBp0gBGD4UqO rXzNgFAsyT6XhDZByfydsda heySC9CNZsHYOmvL03Qa1rw DogMTBw pCKCkL6khazal9ifbtflKzV uFBDvXRy6TJq0CULxmSuaEz GpTVC2QgO5WDO8kMHpeB5pt Glnbjog tQ7cQ3QmYVBtbnyyEx15sS2 gCfOzVwV2SVogUmg+Q1JBV0 ZPUkQsIEJSRUFOTkUgTUlDS EVMTEU8 E3NtXrb4VPQdeYlbOF9eyEL pKIkuQb6avJqdmPvpPG8fGA ZhmntwAPAiqS1nSTTaaJAru HvjPO7l JDMivtlme952IiWtBRU5XAQ ytEKyZ4PfuV8sNvUwULQsJC XaO3WarKKqTHkpO218SHckJ lH1ULRu vbShT6CiWTBzeQeiCrC2a2Y 0Xu6jGd8bMP8hVCp7NB82KI 83sTXdo7S2aIW5P2QoPNLaj mctcmln mIH6UILeUDJfcO47tYWqAQi lIf5cw6X0f164CQSkETGquG 24Ph5egRkqZNFrbOLDtJ3cp uijm9ri wbinYiAqTLDyYLt7UKg2CYX tkXvmCmWdEEB7ZjE0IZO9eW WtnB9ilUumagwcgZ7yCps+M jYgWWVh rkO5G6WrGzu3EGYntHrzPH7 puRScMSsgOq7zeKdpuDvxNH 3oYKCoiwsjGNZxxB5uPPOhk HRvbTog AV1dZVCzaagrv834XiOlWPF 5UBBllWZtQ4FmmW7mSnTrFD QrXPNrO2KjdRRcXYeeH510E GxlZnQ7 HPFskyKhB0EdFZYgkBbvMcF 5y1O1Zi2VVK5RANM3Y0LyCw d7OFPvvEwpCN9yjWItVYlwF q6uwUah tHaoPX7eJUIsnddaCLLqhL2 iDOHsvTKptJfzKR3rDYCyln scr739XpQjJBX8BBHdkIViY 0UwwP6t UrMrCGGkIVNxT3UsgOHyUAb hK742TGtvOkL1ZOPiesEnD0 KiCCZtsLnuYaA2c3O7Ot8DA DwvdGQ+ AQ09lm21G5OsSsfmCfe8JOX pIMI3lLC3eA7zXOVtKNyua9 U4lMY9X1JhbcHnun0hv2wmJ XBzZTog Q81czJPzf8Z2DQQbkXE7CXS nlVqvKjAvdU15Uts+PGNvbG jjw7OyGasop7htz8egaXp2W jMwJSIg aoWekEwhTLW5q7GxMt95M35 sIHdpZHRoPSIzMCUiIHZhbG glze1pyY6cAh7+NDSdhUP7y US2mU2o RkWsGhR2VIkqX274HfPslDB jMnkzz1ydk5bdtSb1EoZtQH RduzNrgKngUEV8g4WwNi64W 2NvbGdy f5LwHbz9nb80yOMpf6N8dKZ 0E9LjPWRvlrhdsMQgnOzkZN 4bOGYhqlxyFNFycT5jHFKgO 3z4ZnCu XfJ0VDoxX2YhkfS9INVmmKT zYNTtfKBAdM2wjqpqp5mmlw gkJbCtEJZnBEj5VXa0OOXdb WduOiBs MJQ4ShH0OGH2hGRgqP6bpGw qojivaP5dHcb+ZAq7x0ywgD ZoKL1qmOA6OF90OR04iSPus 4A0lWF3 G3QgLKEyuouoaytigEU7OBY dBLXzrR83Je9vsPrbQc1yNM DdNDM3OYCosEKiS1AbrU4rK iAjMDAw UQEvI7TwxYBcEBxaN851HFo oRnO4NLXmeqQlC9HpODOdoP imBkD0o2C1No9BAH78JO52N M04dOSa h4R6tSR6B2ZnOOWjldozqxd mlEB6LCScTQWkdX82Mw5hlF vvJd7aANQzPCH5LZIluJHoV 6VeeL4x EsJpKQXvTZJqW7AmoCYjDJr pV383ARadNlB6TVUrabYoU4 NmIKUwgOriFjY7b9P2Nl7ER v89MA25 AO43lGFiz2H5oPD6V8VwCSM nyxkzgaztoRV1KWWrDTZxnF 64Of2enSlmLg1eCOSeBND7E FRpbWVz D6ByiA2qLnOcWFWkOLSlF4L jbEEeJPoqP354GRhwTrG1OI GlmkFpW9NuJYPfbEmaAfX3o 9D6Pe9Z PBwsldz4W6HhGejqmXW+PC9 2CDVsJK91hMAxsQRvm3fzqI q8LuNnYSJhCNN2pAgxFXzue 3JkZXIt Y29 (more content not included)... Normal [facility] ED Clinical Summaryon 2024 ED Clinical Summary [facility] ? Urgent Care [address] [place], [place] [id number] Clinical Summary PERSON INFORMATION Name: SHERLY ASTUDILLO Age: 24 Years Sex: FEMALE : 2000 MRN: Acct#: Visit Reason: UC - Throat Problem; THROAT PROBLEM LT SIDE Arrival: 09/24/2024 12:32:36 Discharge: 09/24/2024 13:30:00 LOS: 000 00:58 Check In: 09/24/2024 12:32:36 Checkout: 09/24/2024 13:30:00 Address: [address] [place] [id number] PCP: Jason MCNEAL, Radha Santo PROVIDER INFORMATION Provider Role Assigned Unassigned Michaela [...] With: Address: When: Radha Gomez MD [address] [place], [place] [id number] In 3 days Comments: You have been [...] next 3-5 days, also f/u with your POLLUTION CONTROL CHEMIST, for reevaluation, return to the emergency department/urgent [...] 1:Oral sharon; 2:Pharyngitis Patient Understands: Comment: Normal [facility] ED Patient Summaryon 025 ED Patient Summary [facility] ? Urgent Care [address] [place] [address] PATIENT DISCHARGE INSTRUCTIONS Patient Information Name: SHERLY ASTUDILLO Age: 24 Years Date of : 2000 Reason For Visit: UC - Throat Problem; THROAT PROBLEM LT SIDE Arrival Time: 09/24/2024 12:32:36 Primary Care Physician: Radha Gomez MD Attending Physician: Larissa Cobb Comment: Patient Education With: Address: When: Radha Gomez MD [address] [place] [id number] In 3 days Comments: You have been [...] next 3-5 days, also f/u with your POLLUTION CONTROL CHEMIST, for reevaluation, return to the emergency department/urgent [...] these instructions at home: Medicines ? Take puqx-tic-tpnodmc and prescription medicines only as told by [...] cool-mist humidi (more content not included)... Normal [facility] POCT Rapid Strepon 5 S. pyogenes Ag IA Ql (Unsp spec) Negative Invalid Interpretation Code [facility] Comment on above: Performed By: #### 9 [id number] #### [facility] (DEFAULT) [address] [place] [address] Urgent Care Recordon 025 Urgent Care Record [facility] ? Urgent Care [address] [place] [address] PATIENT DISCHARGE INSTRUCTIONS Patient Information Name: SHERLY ASTUDILLO Age: 24 Years Date of : 2000 Reason For Visit: UC - Throat Problem; THROAT PROBLEM LT SIDE Arrival Time: 09/24/2024 12:32:36 Primary Care Physician: Radha Gomez MD Attending Physician: Larissa Cobb Comment: Visit Diagnosis: Diagnoses This Visit Oral sharon (B37.0) Pharyngitis (J02.9) UC - Throat Problem ([id number]) If you received any narcotics, sedation, or [...] documents With: Address: When: Radha Gomez MD [address] [place], [place] [phone] In 3 days Comments: You have been [...] next 3-5 days, also f/u with your POLLUTION CONTROL CHEMIST, for reevaluation, return to the emergency department/urgent [...] and treatment you received today in the [facility] were for an urgent problem and are not intended as complete care. It is important for you to follow up with a doctor, nurse practitioner, or physician?s assistant director of public works for ongoing care. If your symptoms become [...] so we can reach you if necessary. [facility] has provided you with a complete list of medications post discharge. Please inform your primary care nurse practitioner/provider of your visit and for further instruction on these medications. Any specific questions regarding your chronic medications and dosages should be discussed with your primary care physician(s) and/or pharmacist. New Medications [facility] [id number], [address], [place] [id number], [phone] clotrimazole (clotrimazole 10 mg oral lozenge) 1 [...] it is (more content not included)... Normal [facility] Telephone Encounteron 2024 Quiller Operator Authentication Interface Message Text Called patient lmom to call office for sooner appt... we have them available. Thank you Normal [facility] DRUG SCREEN RAPID (URINE )on 09-10-2024 AMPHETAMINE SCREEN URINE Negative NEGATIVE [facility] BARBITURATES SCREEN URINE Negative NEGATIVE [facility] Healthcare BENZODIAZEPINES SCREEN URINE Negative NEGATIVE [facility] Healthcare BUPRENORPHINE SCREEN URINE Negative NEGATIVE [facility] Healthcare Comment on above: DRUG CLASS [...] Healthcare OXYCODONE SCREEN URINE Negative NEGATIVE [facility] PHENCYCLIDINE SCREEN URINE Negative NEGATIVE [facility] TRICYCLIC ANTIDEPRESSANT URINE Negative NEGATIVE [facility] CLINISYNC [facility] US OB 14+ WEEKS [...] GDLNon AGE GDLN ACOG TESTING Note . [facility] Comment on above: TESTS RESULT FLAG UN ITS REF RANGE LAB Clinician Provided Cytology Information Source.............Cervix Other.............. No. of containers..01 ThinPrep Vial Age Algo ACOG Crystal... FLAG LEGEND: L-Low Normal,H-High Normal,LL-Alert Low,HH-Alert High <-Panic Low,>-Panic High,A-Abnormal,AA-Critical Abnormal Performed at: 01 =G [facility] [address] Melissa García MD, IGP, RFX APTIMA HPV ASCU Note . [facility] Comment on above: TESTS RESULT FLAG UN ITS REF RANGE LAB DIAGNOSIS: 02 NEGATIVE FOR INTRAEPITHELIAL LESION OR MALIGNANCY. THIS SPECIMEN WAS RESCREENED PART OF OUR HEAD SCORER PROGRAM. Specimen adequacy: 02 Satisfactory for evaluation. No endocervical component is identified. An endocervical component is not commonly seen in the patient. Performed by: Emilie Frost Client Service Administrator ([facility]) QC reviewed by: 02 Lauren Ness, Supervisory Client Service Administrator ([facility]) . 02 Note: Note 02 [...] Low,>-Panic High,A-Abnormal,AA-Critical Abnormal Performed at: [address] [address] Melissa García MD, Performed at: =G - [facility] [address] [id number] Medical Receptionist: Melissa García MD, Phone: [phone] Performed at: [facility] [id number] Medical Receptionist: Melissa García MD, Phone: [phone] SPATULA-ALONE CERVIX CLINISYNC [facility] RECURRENT VAGINITIS (HTRX)on 08-15-2024 ATOPOBIUM VAGINAE 0 [facility] ATOPOBIUM VAGINAE Not detected [facility] BVAB 2,3 (BACTERIAL VAGINOSIS ASSOCIATED BACTERIA 2, 3); MOBILUNCUS SPP 0 [facility] BVAB 2,3 (BACTERIAL VAGINOSIS ASSOCIATED BACTERIA 2, 3); MOBILUNCUS SPP Not detected [facility] SHARON ALBICANS, PARAPSILOSIS, TROPICALIS 0 [facility] SHARON ALBICANS, PARAPSILOSIS, TROPICALIS Not detected [facility] SHARON GLABRATA 0 [facility] SHARON GLABRATA Not detected [facility] SHARON KRUSEI 0 [facility] SHARON KRUSEI Not detected [facility] CHLAMYDIA TRACHOMATIS 0 [facility] CHLAMYDIA TRACHOMATIS Not detected [facility] GARDNERELLA VAGINALIS 29.341 Abnormal [facility] GARDNERELLA VAGINALIS Detected Abnormal [facility] Interpretation and review of laboratory results Abnormal [facility] MEGASPHAERA (TYPES 1, 2) 0 [facility] MEGASPHAERA (TYPES 1, 2) Not detected [facility] MYCOPLASMA GENITALIUM 0 [facility] MYCOPLASMA GENITALIUM Not detected [facility] NEISSERIA GONORRHOEAE 0 [facility] NEISSERIA GONORRHOEAE Not detected [facility] TRICHOMONAS VAGINALIS 0 [facility] TRICHOMONAS VAGINALIS Not detected [facility] GLUCOSE TOLERANCE 3 HOURon 1 10-11-2023 GLUCOSE TOLERANCE 3 HOUR mg/dL [facility] Comment on above: GLU FAST 83 (<95) Co l: 08/10/24 0708 GLU 1HR 131 (<180) Col: 08/10/24 0812 GLU 2HR 124 (<155) Col: 08/10/24 0912 GLU 3HR 95 (<140) Col: 08/10/24 1013 [facility]IS[facility] Urinalysis macro (dipstick) panel (U)on 08-08-2024 Bilirubin, UA Negative Negative - 4(70) +++ mg/dL [facility] Blood, UA Negative Negative - 50 Osvaldo/mcL [facility] Clarity, UA Clear [facility] Color, UA Yellow [facility] Glucose, UA Negative Negative - 1999(110) ++++ mg/dL [facility] Interpretation and review of laboratory results Normal [facility] Ketones, UA Negative Negative - 160(16) ++++ mg/dL [facility] Leukocytes, UA Negative Negative - 500+++ Edison/mcL [facility] Nitrite, UA Negative Negative - Positive [facility] pH, UA 5.5 5 - 9 [facility] Protein, UA Negative Negative - 2000(20) ++++ mg/dL [facility] Spec Grav, UA 1.02 1 - 1.03 [facility] Urobilinogen, UA 1.0 0.2 - 12 mg/dL [facility] GLUCOSE 1 HOURon 07-31-2024 Glucose [Mass/Vol] 132 mg/dL High NINF - 13 0 mg/dL [facility] Interpretation and review of laboratory results Abnormal [facility] Coding Summaryon 07-16-2024 Coding Summary HTMLBase 64 RaomdpjwZAp2iIv+PGhlYWQ +AG4IMRHwH11yzXYslS7nQ1 NMTElOSywgQVBQTElOSyIgb xVtLH4shNQyZFZw IC8+KY7qUCJpYxjcgXLrr8X 9tMB1R98mgq1ySShgqLI0IN LeHaFliofxe0ugzFj3PRogI mluOyBt BFWkzK47TLH9qM68Yu58aHS zkKEuo4flnKh8OxSpAEYrBE K9iDjnEArdx6EsLACaG87fu XQsq7J5 JMXglQzqeWLrJoNruEM5gH0 yOOkmtgiqy0asuzblRlt7bb 44yQNis9G0cVS9Y6HxphX0K GJvbGQg FoekuUGBlK9ftlpyc9uxabp fWfGrMGWvFEf4DSv7QRKbnI viXwZsGO41HCL2OLRqegBkO 2FsLWFs nSffWgJ3b1T8Ud0YX3IZYeb zN7ZCMDEZQUetpYU+PC90cj 19E6OaFcgsPug1VSXjVAJ5t PS7uU0q KVKxQIlhm8L8hLM2N2HepgZ yln6yi7laIZZvPQaaF94btP Rim2P7DWNbgBF1KACccXvuK iBzaG93 Oyc+SGMugHfkl4SlCwsgn2a aq4rdzUa9FtedEROngqNwyR ptHQW8l0WgYq0zXNPtpRY2n HJ3pV6s VwIiRkJ2PBmuK974DoQhjNG uWrixU32vV1TcxYF+PHRyPj a0DZZrqNkmDZ5cL9BuVMDod mctbGVm iGlbVV2cISGjubwkJSJqzO2 gROCiC1f4UmFhYnN5OSkuR7 EgRXBotbdlXt24xY6eQrZxU gW5RMbk D3FtdxC5MOJexFPeCOcyRAZ 6V77sy1T9BONwXMImTGS9xH U9oM8fwGrtcemikUZhzMevl mVydGlj YAnuWHrkR590ULKzrDztHlV vZGluZyBEYXRlOiAgMTEvMT EvMjAyNDwvdGQ+XINrNXE0b WxlPSAn xVVcEIxuVp3lpOplkBcbIT0 gALSgqbhnMQTvtS6aCAPkiW WtuTqkEV4uZRZaahjrz260A iAxMHB0 IFMdfRDhP6YozY1xQpAnQVC hLUGtQ9PlkMXhKYpcG125BJ zqRvY2IABkuzOuW0BlZNAxi WduOiB0 r2K4Vo6Ml9XrmwqsC5XdeQE nLvTtMoxaKKg0B2XmKiazcK I+BS45EMJtCN24SXw5LJE0q WxlPSdi TQLwA9WpqM9nPyMfULFeFLG kOyc+PHRhYmxlIHdpZHRoPS riSNBtAgGssVllZX9iJh4sI GVyLWNv wBoatPExVnTex0xlXMPzJIf mKZ4fpInqV3HtvHI9SDRri8 v8Ay55I01kC7CszGC+PGNvb ES4eXF2 yB7zHnRxIeM3DVqyU567QaY ciTZcIagjw1gqa4eqvKm0Zu U0LPDqfnVpeWquMVC0l7JiQ i29E19k IHdpZHRoPSIxNSUiIHZhbGl fvw9mzL0sRu9+NZEcyGL5dY H1lV1zTwPmZbU4BBmtS715C nRvcCIv Nfjyq5jrf0sobKi5GsKkWLH nivNekRktLOH7o5PuMu39V6 MuxOvgh0SxGiy4pk58qKBgl 5B5xWC4 E9WiRRIkigwfgACpbLdqOY3 cRFQjzeghTQHtnZ8oUYYwK4 i0FeJcNtM6GJplX4IrxpV3O GJvbGQg TSXpoDSTrN5eezxrr0rctwx rXkWmBCFwQBt0YAz8ZCOljV sfTxSuKZR5FsP4MJA1mGRok R1dhPyl wacwkA1sHui+KWG5hSQjyHY NKY8iRdcknVC+HBXmRPJ9dX dcWXfeFYMpdF0vCWDzK2s3K iAwLjA1 NOroJ6FnasK1ADRkrOQcHTV mmDTGtS1iscnsa9wqxkoyJa CkOTSlQNx1GMh0TYUwfMuoX iBsZWZ0 PdP6PNJ3fWLyaB5hxNeibbz tsJ0uXud+MhgpfJnjXPI0MC d9S0VcWto6OPCxwOheFY6ky GFkZGlu Up8eaSqwgXlwQN6bDPCwtfe ih500BtBvq7dhFZKtjETtBY lsSAS4U33fe0H9YWAlJWFpK OU5fLO5 pN4btDdfdsaguQPdkDuuhgX vcVoiIKhrIIdwS782OASqnL amYyHkCJx0R1WpNif1ABVjf BarRU5o rJIxUQzqGu7onHonfFemCF8 bMQDyueyve525XsFrz9tjGD BniIQyUUaxHNA4B63ut1V3N CMwMDAw LEN4hMA2lY8nfItkgnfloNG mdDsgdmVydGljYWwtYWxpZ2 79MGCzxIvoGuLnoAb5W9RjR ck3RPAt lUzqTJ2ukHQvDZxaMn4wtOi fyPvkVM3qJWYalpsmx827Wc Lbp6rzPCUxjUPyQGdzQKP2S 86hv0C6 WRWgIWKbGGK6jBE1aF0zbHp nbjogbGVmdDsgdmVydGljYW lqYXelT861KXWxwXfkHpZqi GllbnQg OLcvBNo6I1ToAjayhAV+PC9 0LLDsYE06cADbzZGer7khgN d7WyAjSQAhIBV6lRfbIJarv 3JkZXIt N94upXXht6C4VPNjqKckpLG iBtUjgHZ2rC1eZHxauyemh3 nfoxfgYkizy8dxtx04uH35T 29sIHdp ZHRoPSIzMCUiIHZhbGlnbj0 pnO1kEf1+WZEisEX9iWC7qC 7sDYCwKyA0AIqcI956ThYhk CIvPjxj j3ggi6udkRt7ZkT4PRYgvsJ zaDqrPHO8b5QlWq28R45tMD dpZHRoPSIyMCUiIHZhbGlnb v2nkR5s Ii8+EYNtcZK3ySY9dY8oFqT gDrO7AFnwC692AjOfuTOdQz jdW39hZ8BevDV+QYHeEva8N CBzdHls GG4wyDPmMZeuJj9dBXR6VoK vRuAjSPdyQ3WoHWZmznoydi mbeOR5QTWlNUUpbK77Qu0rv DogMTBw wUVIwY7pyfxlw4usjxvwUnS hCMAoJWc4JQl2KPKxuXdfIn KmOYA4BuG2KVR9eEHeuJ7kv Glnbjog zD5eA8LfJZSvitsyPq86xD6 tRdNkTsB6PAraExd+Q1JBV0 ZPUkQsIEJSRUFOTkUgTUlDS EVMTEU8 Q4PdYrw1JZWibWnrAT9pvQJ tGBuuMl3jwMnzfQayOX4iAS MuewanIIDziL6cNNLutNEgn OhgLC6c CRDfrgzkp337XpDySCB2XLW lxDGjH8MyiY6oAyWxRARoWY IxR4RmqMFbRNxsX276AUlwB sB9BLHh xbNoM2OeXQRovTpoGiN0t5N 6Ck0aJt1qWZ1dPAj9PF01JE 52eENbm6Y2xZT0G7QiQPJfc mctcmln fLT2GSEiBIFfxC57rGWxWFc bJs8hg9N9z554DSIdJWPfuZ 49Cb2btLpyPLUhuWZMkX5lw ikqd1tt fryuJlMnKWBiKHo4TOw1HDD nxKyfHxXqWJM5MqX6QNX1qO RotW1bkXfnzhdfxM5bTnh+M jYgWWVh jiC0Y7YuXhh9ZWPvjIueWR0 ftMMzVLrjUq7vuYzlpCkkVB 7eHCGoqcrkQQHyoJ7vRFIvc HRvbTog KM6zOYQdgvprk360KqRvTLH 2XTGqgHHrO6OccA0mWhTgIX OaSQCaE8OdnDFuVWueF551V GxlZnQ7 QJIbwvVmP5WmABZseGacEoO 6g2T3Ih7PNY9XCYC1A6EvOm a0ROXnhUnzAD2piKKkXCzdX j6fqSev oPinNN7hYAOlygdmEWOioS7 vDAIcgYTwkQmhND9nEGWmew ayx499FuXdAME1CPLlqXPoY 6MhvW7g YaNrHZDeXKDoH0SlfWZrLGh wF476PTylUhG5BVUopfDxF9 BxTTQyzUqvMjS6p6A1Qc3SP DwvdGQ+ GZ38ci21D8XjGqriDkf0QWV aRRD1cKB2uF3uCDOsGCrtv1 A2fMN6V2DqmrJhck2zk3ytZ XBzZTog G32jzBBhp4V5MBSloPW4YQN mgRrsZyTayO20Bho+PGNvbG lff1CiCnkfe1eff2sftRy6K jMwJSIg voZseNfvRJR2z8CfOn64L06 sIHdpZHRoPSIzMCUiIHZhbG sqde3sgY6uUy3+FGIdaJJ5z QG8wT4g XoUgPjT6VWepH662SlWykML jCdqzn0ueb6khzMb0CeUjMO TzywBlgBrfNXR8g6CdBw47G 2NvbGdy a1RxIqz8ii63uCYyg7N1mIF 0Y8FwTWYzjdswnYKbgUtdXA 8eBSVdffpcGULrtO1cFXNiO 8m3ZqVi IxO1PMdeA2XftwO3ECNspUJ eZYWklRMNdQ2nblliy3obuw reEfGaCHRcLHo6DNd1MAGkt WduOiBs XUX3XzG3WLS4aGDecZ2pwHf cfbybhA8yGeo+HIh2e9wxiF JbEM6fsZD1DS92PK20bAUfa 5V9zBF5 I7SgFQDcdhsxfsyziCC8GAG qWRCbqB37Ek6hdCleTe4kYF PzQAK4XJNdrWWwA7HmkC9hZ iAjMDAw JCNkD9CcaCZfPFoqO733ZXx lUmM3LKWnouGqK1RdHUKsxS ooGyL3z0S4Tg5LID34AQ25A W31dMLp a1Z5zXL3O3ZiDTObppxaxha ceVZ6MBKeWXJweF74Cr2uzG mpNw2kNAJbTJV4BAFxpYCyD 0XzqZ1q MaGeFOKbTTVxW0VwiJFhNVr aX438XZevOiE0NROfrqKsH9 FaUWVaeNkrArZ5a7W9Ma7JQ w18SN21 OJ40jYIfl5O7bAV4J9LrCVS mosyxavutmFV3WJDvNBPuuT 57Td6toGziLc5nVOBbJRF6H FRpbWVz M7JgmI8yPsZlEMRuZQBfV0H ccJZnBNusV046KEcaYiW0ZO NnbvGaC7PtJHHkuRwyKjR5y 4Y5Yo3H NThqgju8Z4RiGsuefIW+PC9 6BHChXR18lDNmcQBee4dntI x5DaMxEGElFYA1yRcnUTapm 3JkZXIt Y29 (more content not included)... Normal [facility] Urinalysis macro (dipstick) panel (U)on 07-10-2024 Bilirubin, UA Negative Negative - 4(70) +++ mg/dL [facility] Blood, UA Negative Negative - 50 Osvaldo/mcL [facility] Clarity, UA Clear [facility] Color, UA Yellow [facility] Glucose, UA Negative Negative - 1999(110) ++++ mg/dL [facility] Interpretation and review of laboratory results Abnormal [facility] Ketones, UA Negative Negative - 160(16) ++++ mg/dL [facility] Leukocytes, UA Positive Negative - 500+++ Edison/mcL [facility] Comment on above: small Nitrite, UA Negative Negative - Positive [facility] pH, UA 7 5 - 9 [facility] Protein, UA Negative Negative - 1999(20) ++++ mg/dL [facility] Spec Grav, UA 1.025 1 - 1.03 [facility] Urobilinogen, UA 1.0 0.2 - 12 mg/dL [facility] ED Clinical Summaryon 2023 ED Clinical Summary [facility] ? [facility]gent Care [address] [place], [place] [id number] Clinical Summary PERSON INFORMATION Name: SHERLY ASTUDILLO Age: 24 Years Sex: FEMALE : 2000 MRN: Acct#: Visit Reason: Vaginal discharge; VAGINAL ITCHING/DISCHARGE Arrival: 07/05/2024 10:15:34 Discharge: 07/05/2024 10:59:00 LOS: 000 00:44 Check In: 07/05/2024 10:15:34 Checkout: 07/05/2024 10:59:00 Address: [address] [place], [place] [id number] PCP: Radha Gomez MD PROVIDER INFORMATION Provider [...] Location: Home PATIENT EDUCATION INFORMATION Instructions: Vaginitis, Nzeu-mv-Kavc Follow-Up: With: Address: When: Radha Gomez [address] [place] [id number] Business (1) Within 5 to 7 days With: Address: When: [place] [address] Business (1) Within 1 to 2 days DIAGNOSIS: Vaginitis Patient Understands: Yes - Patient/family/caregive r verbalizes understanding of instructions given Comment: Normal [facility] ED Patient Summaryon 024 ED Patient Summary [facility] ? Urgent Care [address] [place], [place] [id number] PATIENT DISCHARGE INSTRUCTIONS Patient Information Name: SHERLY ASTUDILLO Age: 24 Years Date of : 2000 Reason For Visit: Vaginal discharge; VAGINAL ITCHING/DISCHARGE Arrival Time: 07/05/2024 10:15:34 Primary Care Physician: Radha Gomez MD Attending Physician: Spenser Fang Comment: Patient Education With: Address: When: Radha Gomez [address] [place] [id number] Business (1) Within 5 to 7 days With: Address: When: [place] [id number] Business (1) Within 1 to 2 days [...] and use condoms. General instructions ? Take gfaw-doo-fumbkpq and prescription medicines only as told by [...] provider. Document Revised: 02/19/2021 Document Reviewed: 02/19/2021 [employer] Patient Education ? 2023 [employer] Medication Information: The exam and treatment you received today in the [facility] Emergency Department were for an urgent problem and are not intended as complete care. It is important for you to follow up with a doctor, nurse practitioner, or physician?s assistant director of public works for ongoing care. If your symptoms become worse or you do not improve as expected and you are unable to reach your usual health care provider, you should return to the Emergency Department, we are available 24 hours a day. For those (more content not included)... Normal [facility] Urgent Care Note- Provideron 07-05-2024 Urgent [...] History Medical history: Resolved Ankle fracture, left ([id number]): Resolved. 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 Surgical history: Cholecystectomy ([id number]).. Family history: Anxiety Father Sister Diabetes mellitus [...] doctor a (more content not included)... Normal [facility] Recordon 024 Urgent Care Record [facility] ? Urgent Care [address] [place] [address] PATIENT DISCHARGE INSTRUCTIONS Patient Information Name: SHERLY ASTUDILLO Age: 24 Years Date of : 2000 Reason For Visit: Vaginal discharge; VAGINAL ITCHING/DISCHARGE Arrival Time: 07/05/2024 10:15:34 Primary Care Physician: Radha Gomez MD Attending Physician: Spenser Fang Comment: Visit Diagnosis: Diagnoses This Visit Vaginal discharge (793871534) Vaginitis (N76.0) If you received any narcotics, [...] documents With: Address: When: Radha Gomez [address] [place], [place] [id number] Business (1) Within 5 to 7 days With: Address: When: [place] [address] [place] [address] Business (1) Within 1 to 2 days Medication Information: The exam and treatment you received today in the [facility] Care were for an urgent problem and are not intended as complete care. It is important for you to follow up with a doctor, nurse practitioner, or physician?s assistant director of public works for ongoing care. If your symptoms become [...] so we can reach you if necessary. [facility] has provided you with a complete list of medications post discharge. Please inform your primary care nurse practitioner/provider of your visit and for further instruction on these medications. Any specific questions regarding your chronic medications and dosages should be discussed with your primary care physician(s) and/or pharmacist. New Medications [facility] [id number], [address], [place] [id number], [phone] terconazole topical (terconazole 0.4% vaginal cream) 1 [...] Eating food (more content not included)... Normal [facility] ALL CBC WITH AUTO DIFFon BASOPHILS ABSOLUTE AUTO 0 [facility] Basophils/100 WBC (Bld) 0.3 % 0.2 - 2.0 % [facility] Eosinophils/100 WBC (Bld) 1.2 % 0.9 - 7.0 % [facility] Erythrocyte distribution width (RBC) [Ratio] 12.9 % 11.0 - 15.0 % [facility] Hematocrit (Bld) [Volume fraction] 40.3 % 36.0 - 48.0 % [facility] Hemoglobin (Bld) [Mass/Vol] 13.7 g/dL 12.0 - 16.0 g/dL [facility] IMMATURE GRANULOCYTES ABS AUTO 0.06 High [facility] Immature granulocytes/100 WBC (Bld) 0.5 % 0.0 - 0.5 % [facility] Interpretation and review of laboratory results Abnormal [facility] LYMPHOCYTES ABSOLUTE AUTO 2.5 [facility] Lymphocytes/100 WBC (Bld) 21.2 % 20.5 - 60.0 % [facility] MCH (RBC) [Entitic mass] 29 pg 26.7 - 34.0 pg [facility] MCHC (RBC) [Mass/Vol] 34 g/dL 29.9 - 35.2 g/dL [facility] MCV (RBC) [Entitic vol] 85.2 fL 81.0 - 99.0 fL [facility] MONOCYTES ABSOLUTE AUTO 0.4 [facility] Monocytes/100 WBC (Bld) 3.3 % 1.7 - 12.0 % [facility] NEUTROPHILS ABSOLUTE AUTO 8.7 High [facility] Neutrophils/100 WBC (Bld) 73.5 % 43.0 - 75.0 % [facility] Platelet mean volume (Bld) [Entitic vol] 9.5 fL 9.5 - 13.5 fL [facility] TBH EO # 0.1 [facility] TB PLT [address] [facility] RBC [address] [facility] WBC 11.8 High [facility] Outside Recordson 06-11-2024 Outside Records [id number] [facility] [id number]#[address] [facility] Coding Summaryon 06-08-2024 Coding Summary HTMLBase 64 EkelrxblZVk2zUd+PGhlYWQ +ZL7JNTGiE38kxHVwsK4vR6 NMTElOSywgQVBQTElOSyIgb kXeAQ1vaNVsZCEx IC8+WC7wIXGfAinzgHDls8G 1ySQ5O91ejp4fCLuloUK2FM RqJmZjjbukp5oadCm3DEqcA mluOyBt QKIhcB06FSN2hQ52Sw01sQZ mmYRtl6mnpIi0GjFrDHNzSA A7xCliPKril6TlRFLgU37ut PHnl2W6 TNEyxJrduHBaMpCwdRV9oE1 nHEgaqjcrl6wuaxksJmi6yt 71wFNzv9K0mBJ7B8OsfgL6D GJvbGQg MebpjDQHtS0kozjvq4tkedh jVxOfJCYgCGx1RCg3BZWmlK ohVnFeEK71MHA0UDEgfeEeZ 2FsLWFs dEtgDcL3i8G0Tw8IW6JXDqb zZ7PUBUSOAIdbmFD+PC90cj 67X5EjPqqwVae4MSZzIJV6f NO4nZ1x IPFdBEvjq5D9bDF1U7KbuoI wlf0wn4ywTAAnXDtaC89sxF Eht7Y2SCGqhYN8DLGyiEfjP iBzaG93 Oyc+AISqjWtfj8LrLggun2k xf8ccaGq4UiddBMOuahWmmF slPTJ2s3UvNp0fXRXwuTJ8g UD3cG4f UvYjRfT0VCitQ004HqNidKV tKwkhN07lZ5LkgHY+PHRyPj n1KTAtbCygBL9xM5KaNEFio mctbGVm gIshDF7sAGIueradHOWbjJ6 rYTOfU3t7QzVrGdF6SLuhD4 DxXBFncccvNu66kN0uYsUdR cW9MAyi V7VaniV5TRKkoAWcTFrbSRA 2G29ut1Y3WIDlZULdYTT8nJ L3nO8drOrqvmtfjPVgwFvpa mVydGlj ZNrbJGbpO257JIQfgHgkYbX vZGluZyBEYXRlOiAgMTAvMD QvMjAyNDwvdGQ+ZQEnEOC5g WxlPSAn eKPzDYwyWo1iyTbigQzvOV2 pYMPhwdxaAMWbrX3yZOIsgR UiaUneWP5kLOGqyvrym553R iAxMHB0 EWOtjKNnN9WgrZ1cWgRaHXS jEHNvT6NkpWKpCBrsI585NT xaFnT8WVIwsoXwI1SfSXFck WduOiB0 c8S3Yj9Ib1KbzsosP2MzaRO iEuYmGawtODw8B5OmQnqvdU I+WG27FZQbNU22HDw6WPT7g WxlPSdi DCZhV6UruE7nYnRnOUMrVJB kOyc+PHRhYmxlIHdpZHRoPS avCANsTeTdlGluTD1nTs3kP GVyLWNv jVgqyOGrBwZht7ebNIHlBOv cTZ8kmQcdW1TonTT5MAKrh0 x6Zh28L36eQ2ZwnOM+PGNvb TL3jOW2 dN2oRjWhKyC9DSagY079JpF evHIkCgvht0ldu7wtnCu5Yh B0EIDoaePhwZkcWEW2m9ChT s42B01i IHdpZHRoPSIxNSUiIHZhbGl pda4nbY9yXk9+PTLzyEN0oY Y5tR6nEwWxAfW2VWbvR489F nRvcCIv Eaztc0pra8efmXv8YoXpVJY oylOalDdhQNA3t6PqZn95U6 EonZoaa3KtFol3cm48wWChj 0B7gDG9 X3YqXZAikeagwMDcpAwxXM6 jYHHcmxbwCIUzpD3pMDApN1 z4NmXuEuN2QYxxU2KwxnP8T GJvbGQg KGIjaTLOqM7iclhta0jhtal lFfFbBJZeJSv6CXa6AOTrwW yzWhHuGBJ9NlM2PRY3xBQms L5zvPsj sdsagC0gHrj+UUX7hFVpmBQ ZPM0dIwoezZX+SKJkTJJ5gK asPVpxMEXpaA2jWLSoH2a9V iAwLjA1 RErgW9VbfnP7YUGqtLMqRHP liUFVaR8ndrvmx9kiywbzVq ByRHJpXYy4RTh0LHJthYnxS iBsZWZ0 OqE6OXW0hZVgrF6zrLwhaxy syM2sXkz+CgebnUebQCU7SL v3O3PcPkz7BWWyeBytCG7by GFkZGlu Mv0tjFyhvLgyAY2gPZUwpls aa540EzPud6ygENQmeSDjRZ wvMST1V76tg1U0LSOxTRNsE HZ2wDR1 hK4qzBopylxltYLeaRmersY irUlgKJauUSrqW476FPXtlK jfVzQyKSx8F5JlYyg7TUPsq FxmXU5b rLQuTMprEo4gcKmdbTffSQ3 tFYPfhiqyx335JmQju7nzEM SfoRXkBHyfNBZ3E99oe2P2F CMwMDAw HBO6fQE9vJ1sxIesoszmtVX mdDsgdmVydGljYWwtYWxpZ2 54TGEpiHwtGcGgbSe9J8ArX ld9HPHt iSsgYH9mhSBzHLueZl3kdHu tgZkrYA2cEYCiwraab881Ir Vsy2whUJUeqQJyCAguBDO5R 19kt5B8 LHIjHYFbGJC3gBK4hV4euGb nbjogbGVmdDsgdmVydGljYW tpJIbwN298DHBudAhoEcCjk GllbnQg AOlwPSo4L2PpMrlmnTM+PC9 1PTIyGJ29cDByoYKlf1nffL b7WgQnMBGdGIY3kMufBIujr 3JkZXIt T96rhZLtj0M9ONKrjKostKQ nXgDbvDD0rB5vLBmghuslo4 leaypeGitef2exvh96aF49L 29sIHdp ZHRoPSIzMCUiIHZhbGlnbj0 caL2jJu5+DWBzbXH7dXG8dX 2vIGWwBcU3MPobT969TaIhi CIvPjxj f9gab3dbgEh8DhD7VITwnjX mhHqkRKR5o5SbDa02Z82bTT dpZHRoPSIyMCUiIHZhbGlnb u3fsL0x Ii8+NTIobQA7rKL7aG0pVdQ sOlR4MYxiV314LdKjaBCoCb ujR13fB9IrjBO+LAFyBsy8J CBzdHls RH1qtNIbGDolOk1kRDY0PlY wUnJdSCsuP1KnTCYkgzutpz oxiQZ9LAKmLSEasK58Uq7gx DogMTBw hIDAfJ9hbshsh1hetbnqOfV zXTPwYEr4TYq0JTPqxOmoAr JqDMI3CvR2WQY9xUAfgP9kg Glnbjog aQ5mT1DaFOBcmfvkJj64fF8 fIaOiZtZ6CYnpPhv+Q1JBV0 ZPUkQsIEJSRUFOTkUgTUlDS EVMTEU8 N1KyZfy6NIUkzQreQB3pqAB lNVeuAx2kqMskrJgeAO4mXI LllnraLKRvuI1rPAZogWAti ComVS0v FIDvbanbv177PtPcIOW0BVU ggGUrY5NkfN9wHgHbEKWqAU VdJ9MalTBeOMkeS566PGjwA hG2RDBl fyHeN2UuLJMfiNshZsH4v6P 5Ak5rYj6cZQ2mXUg7BP53MY 57gTLcd9C7kAH8M1JlEUIdi mctcmln nXF1ZJVgVOXomZ72kYZjXIy tAz6zb5I5l549RADpDAAxnO 18Lw9tpQheCHWvpERXzS8kk fyfr9tb bjlsXmVaPGIfPUp6BDh1OPR mjOmmErEsVEP9PhV4YCO5cX WjfI6kxNscfiudwW9iOae+M jYgWWVh jaD5L2KvOba5FMDfjVleCZ1 jfFEhHTkyKs9qhPshqLwfKM 8pLHVsecstSDTypY9gMJVsy HRvbTog LD9cJQQrwlxvr869ZfThBGR 0PYGipAVyP5IdnB8tFgIkBK XcPNZhI0XprBMsSWahZ055I GxlZnQ7 ZCTmrlEgM4HiPODwwFzzVdA 6m6Q8Pe2TFD3LDOF5J8XzXg c5YTCcvCdyQG5zbCTuNNurV q9rlYxc rTycUC8nVYNvbxkeURQeqA3 eZPOwyEKacBnmWN3vGCSegi aam822FkRqXNC2KKQjkIFyR 8FgaL0k YwOnPMGlUMUrQ0MsoDEcZOb gX778IXcfQuF1XOJpayJgD5 JvPAPymUnfXfL8z9G0Xq6Qn REfM3Ux H7o2Z0HoHwxtiBJ+MO47IIY gME00lPCxfBSxs1dgdDe6Wq JgKQXtMYI4qUuiCOodl3VhZ IEjK95l gIQda7N1APUunAwfwKAhXtT gwCR7rZ3jUGjzsaaup5adfw yyVywai4sgwz75pH30P25qS HdpZHRo DAKtCIFqHCEzxFuuca7lfJ2 wIi8+GLDafZL1mZN8xA6oNs BcOxM4CHabR752FbXamSCcM eant0pf h3ufkRa2UcNwXXQshnLsoKb aWVA7y0UnGh92T64wWIseZJ ExMWQeSJSdUFCabZhlbx6fd G9wIi8+ NS5ot3hudj93mQ39tOF+PHR uNRA4qEvbDMfbVDEgtC5dAD kcYpO2TNTqGpYekE47bYJqY EkhLx9m bYkoiAxyQO3kHOGxspjnj84 3AdTma1kaOGQycAQiTQffZW T7E55kl2W6MBPvHEKiNBX9y HI6dF0u bGlnbjogbGVmdDsgdmVydGl hOZcqBPdgA474BSFvhNutMw DqdBMrF5yadiTJWD3eMbypr GQ+PHRk UDZ5kBrdXVmnPBAavX0xEGB yE1y4PgLiDsO7YLhlS8Lpgy M1DKEmqEQzDFLxoHNYfS7qs crdx7kk zmvfRjVmEOIwMUf8AZb0KUK vcJmdKpOkKFH6KmN4BTL0jL YfqQ4frFtrhrmnzX4dTke+R klOOjwv dGQ+UDGvRCB7pLviEWarFYK vpZ4pAXXuR0l3BoMmUoY3BB cyW6XygoR7FBIsyQVhBWLou ZZPrB2t iwoxi1hvnwjwWvUpFJTeWUw 9VCe2PBLbgJqjLkKuOYA1Ac L8KWL1dPSuaF5flZtbrdzds G9wOyc+ TVJOOjwvdGQ+WUArVIT4nDt qWBhqDKKeeF4nVLNnS5q5Cp JpNoT5BPkjO9SglhM5SDCsq GQgMTBw vNZVyK5qpdvhn1rqatvnRdS xXWBqWEk8QIs4CFGnsMqrQg DvBWQ1SrO1BHI5ySYwfB5es Glnbjog pH4sPnx+UAE0USO7AS65EP7 0Q4YgDefeoSUlxKR+PHRhYm xlIHdpZHRoPScxMDAlJyBzd ViwZH4v Ym9 (more content not included)... Normal [facility] HCG ( test) Ql (U)o n 06-07-2024 Interpretation and review of laboratory results Abnormal [facility] Preg Test, Ur Positive [facility] Urinalysis macro (dipstick) panel (U)on 06-07-2024 Bilirubin, UA Negative Negative - 4(70) +++ mg/dL [facility] Blood, UA Negative Negative - 50 Osvaldo/mcL [facility] Clarity, UA Clear [facility] Color, UA Yellow [facility] Glucose, UA Negative Negative - 2000(110) ++++ mg/dL [facility] Interpretation and review of laboratory results Abnormal [facility] Ketones, UA Negative Negative - 160(16) ++++ mg/dL [facility] Leukocytes, UA Trace Negative - 500+++ Edison/mcL [facility] Nitrite, UA Negative Negative - Positive [facility] pH, UA 7.5 5 - 9 [facility] Protein, UA Negative Negative - 2000(20) ++++ mg/dL [facility] Spec Grav, UA 1.020 1 - 1.03 [facility] Urobilinogen, UA 0.2 0.2 - 12 mg/dL [facility] Coding Summaryon 06-05-2024 Coding Summary HTMLBase 64 CvtoiivtXZb8dXf+PGhlYWQ +WW2YRTQpA96fxVGynT5zS8 NMTElOSywgQVBQTElOSyIgb sZdLJ4yxROpVUXo IC8+ES9rXMMuDhrlaRDjq5P 7kXX1I28uhs4pICickZB1QH WiEkMvbzjei4vglJd5FXlkH mluOyBt WZEbmZ07BZH8vH33Ko64xAT mlNIda1zzfWh4LuHkECUsNX A0kLcnNNxdb4SdFOTiP15xa YYhl3Z2 YXJlbTmlnIPlDoDipPQ6jQ7 oPJpmcqpul3hfqcuyJat3sv 24oCMqh0N1tGL5X8JaqmI7U GJvbGQg AcoyzOLLgC6ukzfth0wxfby aNcHmPXCqQQg1WBl0XPBwbN wnLsNfQS65IOL3KNZurzDzS 2FsLWFs bYdoGnN9m9A8Lz6MZ2NMGpq lD2KYSZXNWZpeqNR+PC90cj 02W8TeGtipWdj8RGLmGEL5j BW2tG0b WCOgYFujw0A6tSI3E3AzqnE ayl8am2ifLLYnUSsjE02byM Hzi2U4XTBakSW3INPmvSdaF iBzaG93 Oyc+WBUdxQksm8ImKlpji6p yj8wekTb5YgfaRNYrhaOedD elAEA4b5UiKb2dZYBqjYU4k FQ0sC9b YnXbDdD3QVbhP679LlSanYO dAgpuV06xO8VxsCC+PHRyPj l9RIEfvToaTG1lW1CpOWWtu mctbGVm qAkeSX2lMVYfmaipMNKweS6 wVXYhX4b2IeYhJhF2SOxfG0 ZmTXShgsgmAp26wJ8mCpJwU oJ5IZhs I2IzgcV8EWFmsMGqDEmnVMW 3T94oh8C0DAYmUKQlTYC0wO J4rS5ocEyidqlayDCucFsyd mVydGlj CAquCPgeH078GATgiJwcXgK vZGluZyBEYXRlOiAgMTAvMD EvMjAyNDwvdGQ+ZJDtVDN5k WxlPSAn eEXfSNltRw3qgFvorTycLF7 jVCEapumhITQcbF4xYYXvcW BaeIalKP9lYRPassykp400D iAxMHB0 DVDxeUYcA5XemV5dJyWsNDW nYIOcH8MozKZjFZkhV353TW eyYwR7AFMfsaIlO6DvRMFic WduOiB0 h0B1Rr0Yr2DkshzsQ2GwlKE bAoNjKmdxMIt4B8DtZgezjY I+IU33IKZjSG67GXk7KXH0a WxlPSdi KQWzE9PqvP9xXiEvDREmMBQ kOyc+PHRhYmxlIHdpZHRoPS nsXQXwPvQcvDruGV3qSp0yT GVyLWNv wFutpQRaKtHju6jqSYWpNCh iZR0ngNbkJ4VqxUZ1ZROls6 s7My09F27nV3WmpSR+PGNvb FW6tLY8 kD9jGyPaXzH1UTofR294WvF tcDMwIutxh8hud3mccDm4Oe X3KOWabdPdbOsiBMV1r6PjP x90T55z IHdpZHRoPSIxNSUiIHZhbGl zuy5jzJ0mDv6+MSKftHS5qS Z8rP1dIyKvOfT3LVnbY626D nRvcCIv Asmmx4hse0haeGd0ZoVmLEB lbiYviNozPNR7c8RcNu38B5 HjnLwfu0FjThq3dk86rJVrc 2L2bZP5 Z2GjLBGopvcwvQTuiOowZV0 tISCvfzfiFVBxaM9sMINjP7 a9ObNkDiW8REvwJ0StmuR7L GJvbGQg EIBuwMVUkJ2owoafc7vvfrj jFpHwYDDvYQm7CXy0JIGneT hkOfCdGHV7JdQ2SON4yNNjl S9kpFpm cesitP6hHop+PCZ2xQGkmQH ZVX5aNaihnBG+XQLlLTY3jU itGBlsNXCgbU8pOCPoU0k8Z iAwLjA1 ERjjJ9HqyeF9XNRxiHGwGJG amKXJqL7xhzvfu6xtypniSa QuVDXrJYy4PBj0QQQudIcyV iBsZWZ0 KxJ3ZDQ1gNUrcZ8nlKwguwf fcS3fRgl+IsktwNpbLPH2JZ b5G2IfNdd8XMJrvXqyXE4rw GFkZGlu Yw9ctBawmKqeMZ2mBMHlniy sn318WsKza4vbLGWojKYiKS gmMUJ0J24er2T2EUVzQJXsT MQ4vVN3 wS0ygApnarwvrQLgpDaipiF xhSoyIRkyLQbhH589QDLkaS fbYsZgAIq1Q5LtYiy2VSRdf WqcJT6t nMTrVUwgSo3fvChyjAnaOC3 lZQIxlgato351JzLbn1sjXF BbuYXaTOkqELG4E99yn0X2S CMwMDAw IBH1tVN5lD0ciHojveetxUH mdDsgdmVydGljYWwtYWxpZ2 79NYTzkJdiDbYlsJo6S9VeR ii5BTQa zVcuZK2oaXFmKIwlFe9inTs uhZjgMJ8aBBMrsgqgt434Jg Toi6doILTbtVWgWWcaGBI5D 98qc8B8 UALfVGMlHNX5yUT0iV2dmFy nbjogbGVmdDsgdmVydGljYW gjDKleK416HYKlqNmpDtEmf GllbnQg MRmcTTw9Z3JhSvccyEA+PC9 4SZSrHO39kOHqwIDvz7iypJ k7BxSnZPHgYHJ7kSwrXIrio 3JkZXIt F10hgOXut2F5PGBzeQlhfRY qCtJvaEY9aU0rUUcoktnjx7 pnrfieJyhrt4wkzx33eX68E 29sIHdp ZHRoPSIzMCUiIHZhbGlnbj0 miL4gXb5+YMAfyWV6hSL2dA 7wZASdZwR9DDrvK400YeQpw CIvPjxj k6eke9lzkFu6GkQ1HLDynlY qbIzqFIY7o7IfNy41E03hTF dpZHRoPSIyMCUiIHZhbGlnb p1wmN1h Ii8+BLSixNJ0rHA8kT7ePwP nOmO3YTvsC096UeOmvKFvSo crV30tP1DxdXN+NHUwEiv5Z CBzdHls GH3kyLRrIVtnZl5bGUY9YaL hLmFsPRxjM1DrVJJzdntpfk zyiLH7BEPaECXnnT89Uf8jw DogMTBw zZIMzV7rziqcv3smxeumWfW eZYCnNNd2OIw6PZCslZsqDk IhTJV3LpN7EOW8qVHgoS5av Glnbjog kB4wK0AeNPFqlfskWe02nB6 gBlUnLsR1KEtaMbm+Q1JBV0 ZPUkQsIEJSRUFOTkUgTUlDS EVMTEU8 D6IaRcj2NAEuvOovUB8kzUJ nKDcqKh5rkIltwXvdBX3vEF XlhhkrUJVynZ8bDGZmsZVry HjvPP7e VKRxtwbna207RgWpITU0ZEX haAUgJ0AliZ4eBdArGDHyKU AjJ5UhxIYfYQimV926EHtcM iY2JLFx zeYqL3SsUKEevLmpKrB7o4U 4Fx1yJr0zEL4yGXh8NR47XR 14oSSay5P5aGN6T6LrKUXrl mctcmln bYB8EWBqUEWaeG54yHLpQKq sBr1fz8T0a367ECNnXVPsdI 02Co0xxLzhSOPhtSRDkD2no omnv2qy tgmwLuBgUICyHMa0SIj1CIS toQlgBiDmOZO3MkI8CAL8cZ DmpM1bpAovfxpuxE7xPzh+M jYgWWVh hyQ8Q6GnRjl1FEXwaGvgRO1 qfGDsZQbeNi4mzYnsvMlfYO 2wXAYnkvowXUVxjH3vLFDnr HRvbTog CH7zYWWqdjhbf563LsThHIO 3GXUneBPuS5ZtzF3iVuKfFH SqZZBqZ0ZwdBEfHTdjE998W GxlZnQ7 YASyaiInJ1QpZEGqxTxcEtQ 4q9C0Mx4JJO2TYBH6H8RsYf c9LEFyrUhuGK3crSHiJNyzH b2qwCfn lBtkHX1lVMKazzgsAMNlyJ2 zANLnvXVoeEicRD2xDQEqxd eci474EpMgIZS9TBXzuUYrX 8PyiS6d RbStFFBcASSoB2XhlRWwDOc gI461IBucTiB9DWHjgvUrN8 NrZCMbaWiiMbY3y2A5Uc0XV DwvdGQ+ GM46im38L9CqEicrOgc4ETT hVGR1tPC6rW0fGKQjYLklv0 X6mIA4V2OnyfKmqs1ip6mwA XBzZTog V17hvBSyh2E4NBHgiJL4EBP blGkcEpFnsG18Fau+PGNvbG ifk7VdMxehr6lxa4vqwUu5E jMwJSIg upKhfElpOBM5r4MgUz24Q15 sIHdpZHRoPSIzMCUiIHZhbG arzi1roE8eTe4+QVZadYA4o ND7uY9g KpHwEpK5KCciX855QhKrnPB uGqzig5von3udcJg7RiVnWI QvysWafNdoNHS0c5QkAv23D 2NvbGdy x6CgDwt5wo69eEHzi6W6uKY 3G0WnXLOnlrtlqNSavVjiTU 3rCDZdkmzePGFzoD6eHLYsK 2t0YbCd VnB3LTwkG8DbwmG4RJUhxOC nPUSaeDGTeU3aqvywv0iqaz tfPaNpSRSmIGb3NQb7LZXwl WduOiBs HOX7KcK9SCR2aQAulB4mkDr sbpkblD5oVsd+NCe5o1ylnH PnSK1kuKM0OY06HG42wXZpy 6L5vWY0 S2LdJQTmmnsyzgwwkRO4SZX qNWJlpQ72If5ksZfkHt2qVC EkNFL3GXUnrEUcL4MfpK9iS iAjMDAw LJKhE7BzhOHfZRsdR793XQx gFkJ1CIRvipWlI6PiVWOehI taFwM0i0B1Ck2IVA30JL89O W41mHSq f6V2zUC6D8JwLOQebvhsyvk bgHC0FQHgDVCunH69Ak0bbP mgNs7lZUUjJNH8JKHjmKOpQ 9HomC2u PzYlRDXeGFRrV4XbpTGiGTi oE636KIaxHgO6IWMnmdWbL2 GiJHCmxLcoMvY2j9L3Zg4UC a03XK46 RG72kDFik1Z6qQU2Z7EsKFA ektvyfqjjlJY6KPHcWDWekW 89Wg9iyBqvPn4lRUOyUGW1J FRpbWVz D6NttH2jLdPjYGXjVAZbK6V xdREoFSywO790DBdeXpW3RR ZnfrHeB2HmPUIirNijZrW7n 6U8Rr3D CGoblth2L7HuJaleaHS+PC9 5HWVwHI62tKIafJDcq2mebL z1NzQjEMCyONC3vDikKQhhh 3JkZXIt Y29 (more content not included)... Normal [facility] Office/Clinic Noteon 024 Office/Clinic Note Patient: [...] 113.040 kg Body Mass Index 39.11 kg/m2 [place] Body Weight Calculated 61.437 kg BSA Measured 2.31 m2 General: Alert and oriented, No acute distress. Musculoskeletal: Positive point tenderness over the left gluteal region as compared to the right. Positive straight leg raise. Positive piriformis muscle sign with external rotation of the hip with adduction towards the opposite shoulder.. Impression and Plan Diagnosis Sciatica of left side ([id number] M54.32). Plan: Discussed with patient stretches she can do to help with her sciatica. They were demonstrated in the office. Will hold off on any steroids.. Orders Orders Evaluation and Management: [id number] Office visit - established pt, Level 3 (Order): 06/01/2024 13:28 EDT, Qty: 1, Sciatica of left side. [Electronically Signed on: 06/01/2024 13:56 EDT] Radha Gomez MD [Verified on: 06/01/2024 13:56 EDT] Radha Gomez MD Normal [facility] .Auto Diff 1on 05-28-2024 Auto [place] % 5 % Normal 09-16 [facility] Comment on above: Performed By: #### 1 [id number], [id number], [id number], [id number] ####[facility] (DEFAULT)[address] [place] [address] Baso Abs# 0.1 x10 Normal 0.0-0.2 [facility] Comment on above: Performed By: #### 1 [id number], 2555776, 6432142, [id number] ####[facility] (DEFAULT)[address] [place] [address] Basophils/100 WBC (Bld) 0.6 % Normal 0.2-2.0 [facility] Comment on above: Performed By: #### 1 [id number], 8303067, 8650345, [id number] ####[facility] (DEFAULT)[address] [place] [address] Eos Abs# 0.3 x10 Normal 0.0-0.4 [facility] Comment on above: Performed By: #### 1 [id number], 8233999, 0985317, [id number] ####[facility] (DEFAULT)[address] [place] [address] Eosinophils/100 WBC (Bld) 2.5 % Normal 0.9-4.0 [facility] Comment on above: Performed By: #### 1 [id number], 3954010, 2360350, [id number] ####[facility] (DEFAULT)[address] [place] [address] Lymph Abs# 3.6 x10 High 1.3-2.9 [facility] Comment on above: Performed By: #### 1 [id number], 6711387, 1953518, [id number] ####[facility] (DEFAULT)[address] [place] [address] Lymphocytes/100 WBC (Bld) 27 % Normal 14-48 [facility] Comment on above: Performed By: #### 1 1293574, 5786871, 6603957, [id number] ####[facility] (DEFAULT)[address] [place] [address] [place] Abs# 0.7 x10 Normal 0.0-0.8 [facility] Comment on above: Performed By: #### 1 [id number], 7656878, 6763064, [id number] ####[facility] (DEFAULT)[address] [place] [address] Neut Abs# 8.4 x10 Normal 1.5-9.2 [facility] Comment on above: Performed By: #### 1 [id number], 6265998, 4744096, [id number] ####[facility] (DEFAULT)[address] [place] [address] Neutrophils/100 WBC (Bld) 64 % Normal 44-88 [facility] Comment on above: Performed By: #### 1 [id number], 4924616, 7438771, [id number] ####[facility] (DEFAULT)[address] [place] [address] CBC w/ Auto Diffon 4 Man Diff? Auto Invalid Interpretation Code [facility] Comment on above: Performed By: #### 1 [id number], 7950807, 8405858, [id number] ####[facility] (DEFAULT)[address] [place] [address] Erythrocyte distribution width (RBC) [Ratio] 13.6 % Normal 11.5-15.0 [facility] Comment on above: Performed By: #### 1 8936087, 9480807, 3714906, [id number] ####[facility] (DEFAULT)[address] [place] [address] Hematocrit (Bld) [Volume fraction] 42.0 % High 33.7-40.4 [facility] Comment on above: Performed By: #### 1 [id number], 7387786, 0844384, [id number] ####[facility] (DEFAULT)[address] [place] [address] Hemoglobin (Bld) [Mass/Vol] 13.8 g/dL Normal 11.3-15.9 [facility] Comment on above: Performed By: #### 1 8019416, 1931370, 4024738, [id number] ####[facility] (DEFAULT)[address] [place] [address] MCH (RBC) [Entitic mass] 28 pg Normal 24-34 [facility] Comment on above: Performed By: #### 1 [id number], 6973083, 3217150, [id number] ####[facility] (DEFAULT)[address] [place] [address] MCHC (RBC) [Mass/Vol] 33 g/dL Normal 26-37 [facility] Comment on above: Performed By: #### 1 [id number], 8963188, 7181890, [id number] ####[facility] (DEFAULT)[address] [place] [address] MCV (RBC) [Entitic vol] 86 fL Normal 81-100 [facility] Comment on above: Performed By: #### 1 [id number], 9856448, 5887108, [id number] ####[facility] (DEFAULT)[address] [place] [address] Platelet 352 x10 Normal 138-427 [facility] Comment on above: Performed By: #### 1 [id number], 7788880, 1799341, [id number] ####[facility] (DEFAULT)[address] [place] [address] Platelet mean volume (Bld) [Entitic vol] 7.8 fL Normal 6.3-10.2 [facility] Comment on above: Performed By: #### 1 [id number], 6190878, 0295383, [id number] ####[facility] (DEFAULT)[address] [place] [address] RBC 4.90 x10 Normal 3.70-5.30 [facility] Comment on above: Performed By: #### 1 5375665, 7437890, 9958288, [id number] ####[facility] (DEFAULT)[address] [place] [address] WBC 13.1 x10 High 3.5-10.5 [facility] Comment on above: Performed By: #### 1 [id number], 0881697, 4713557, [id number] ####[facility] (DEFAULT)[address] [place] [address] CMP Standardon 05-28-2024 eGFR Non AA >60 Invalid Interpretation Code [facility] Comment on above: Performed By: #### 1 [id number], 1581718, 3293383, [id number] ####[facility] (DEFAULT)[address] [place] [address] eGFR AA >60 Invalid Interpretation Code [facility] Comment on above: Performed By: #### 1 [id number], 4198456, 2476416, [id number] ####[facility] (DEFAULT)[address] [place] [address]16 Albumin [Mass/Vol] 4.4 g/dL Normal 3.5-5.0 [facility] Comment on above: Performed By: #### 1 0776245, 1482190, 5349320, [id number] ####[facility] (DEFAULT)[address] [place] [address] Albumin/Globulin [Mass ratio] 1.2 {ratio} Low 1.4-2.6 [facility] Comment on above: Performed By: #### 1 1993886, 8402859, 5877372, [id number] ####[facility] (DEFAULT)[address] [place] [address]33 Alk Phos 46 IU/L Normal 32-91 [facility] Comment on above: Performed By: #### 1 2635386, 5477817, 6001780, [id number] ####[facility] (DEFAULT)[address] [place] [address]6482 ALT [Catalytic activity/Vol] 29.0 U/L Normal 14.0-54.0 [facility] Comment on above: Performed By: #### 1 0234167, 8095724, 2142944, [id number] ####[facility] (DEFAULT)[address] [place] [address]1415 Anion gap [Moles/Vol] 11.4 mmol/L Normal 5.0-19.0 [facility] Comment on above: Performed By: #### 1 1229507, 2676722, 7691199, [id number] ####[facility] (DEFAULT)[address] [place] [address] 95903 AST [Catalytic activity/Vol] 30 U/L Normal 15-41 [facility] Comment on above: Performed By: #### 1 [id number], 4510206, 0442855, [id number] ####[facility] (DEFAULT)[address] [place] [address] 30147 Bili Total 0.4 mg/dL Normal 0.3-1.2 [facility] Comment on above: Performed By: #### 1 3922461, 2275350, 3236473, [id number] ####[facility] (DEFAULT)[address] [place] [address] 83854 Calcium [Mass/Vol] 8.9 mg/dL Normal 8.9-10.3 [facility] Comment on above: Performed By: #### 1 [id number], [id number], [id number], [id number] ####[facility] (DEFAULT)[address] [place] [address] 43980 Chloride [Moles/Vol] 104 mmol/L Normal 101-111 [facility] Comment on above: Performed By: #### 1 [id number], 0682968, [id number], [id number] ####[facility] (DEFAULT)[address] [place] [address] 53701 CO2 [Moles/Vol] 20 mmol/L Low 21-32 [facility] Comment on above: Performed By: #### 1 [id number], [id number], [id number], [id number] ####[facility] (DEFAULT)[address] [place] [address] 15197 Creatinine [Mass/Vol] 0.66 mg/dL Normal 0.60-1.30 [facility] Comment on above: Performed By: #### 1 [id number], 8412256, 6662841, [id number] ####[facility] (DEFAULT)[address] [place] [address] 85397 Globulin (S) [Mass/Vol] 3.5 g/dL Normal 1.5-4.3 [facility] Comment on above: Performed By: #### 1 [id number], 3415090, 9605389, [id number] ####[facility] (DEFAULT)[address] [place] [address] 18951 Glucose [Mass/Vol] 100.0 mg/dL Normal 74.0-118.0 [facility] Comment on above: Performed By: #### 1 [id number], 2466606, 5094711, [id number] ####[facility] (DEFAULT)[address] [place] [address] 90751 Osmolality 263 mOsm/L Invalid Interpretation Code [facility] Comment on above: Performed By: #### 1 [id number], [id number], [id number], [id number] ####[facility] (DEFAULT)[address] [place] [address] 21714 Potassium [Moles/Vol] 3.4 mmol/L Low 3.6-5.1 [facility] Comment on above: Performed By: #### 1 [id number], 0167544, 1059521, [id number] ####[facility] (DEFAULT)[address] [place] [address] 29612 Protein [Mass/Vol] 7.9 g/dL Normal 6.5-8.1 [facility] Comment on above: Performed By: #### 1 [id number], 6032480, 7983182, [id number] ####[facility] (DEFAULT)[address] [place] [address] 27791 Sodium [Moles/Vol] 132.0 mmol/L Low 136.0-144.0 [facility] Comment on above: Performed By: #### 1 [id number], 8763470, 7998274, [id number] ####[facility] (DEFAULT)[address] [place] [address] 41693 Urea nitrogen [Mass/Vol] 9 mg/dL Normal 8-26 [facility] Comment on above: Performed By: #### 1 [id number], 6419164, 4214702, [id number] ####[facility] (DEFAULT)[address] [place] [address] 19527 Urea nitrogen/Creatinine [Mass ratio] 13.6 mg/mg Normal 4.6-16.2 [facility] Comment on above: Performed By: #### 1 [id number], 6736052, 6134625, [id number] ####[facility] (DEFAULT)[address] [place] [address] 63866 ED Clinical Summaryon 2023 ED Clinical Summary [facility] - Emergency Department [address] [place] [address] 41383 ED Clinical Summary PERSON INFORMATION Name: SHERLY ASTUDILLO Age: 24 Years Sex: FEMALE : 2000 MRN: Acct#: Visit Reason: Back pain; Abdominal pain - ; ABD PAIN LT SIDE, LT LEG NUMB Arrival: 05/28/2024 14:14:57 Discharge: 05/28/2024 17:55:00 LOS: 000 03:41 Check In: 05/28/2024 14:14:57 Checkout:05/28/2024 17:55:00 Address: [address] [place] [address] PCP: Radha Gomez MD PROVIDER INFORMATION Provider [...] Home PATIENT EDUCATION INFORMATION Instructions: Muscle Strain, Pzhm-ft-Zrvi; Sciatica, Gvjs-gp-Nuqg; Back Exercises, Vngi-cu-Suew Follow-Up: With: Address: When: Jason MCNEAL, Radha Santo [address] [place] [address] Within 3 to 5 days DIAGNOSIS: 1:6 weeks gestation of ; 2:Low back pain with left-sided sciatica; 3:Pain in the side Patient Understands: Yes - Patient/family/caregive r verbalizes understanding of instructions given Comment: Normal [facility] ED Clinical Summary [facility] ? Urgent Care [address] [place] [address] 84191 Clinical Summary PERSON INFORMATION Name: SHERLY ASTUDILLO Age: 24 Years Sex: FEMALE : 2000 MRN: Acct#: Visit Reason: UC - Abdominal Pain; LT SIDE PAIN, LEG PAIN Arrival: 05/28/2024 14:07:02 Discharge: 05/28/2024 14:10:00 LOS: 000 00:03 Check In: 05/28/2024 14:07:02 Checkout: 05/28/2024 14:10:00 Address: [address] [place] [address] 8[address]66 PCP: Radha Gomez MD PROVIDER INFORMATION Provider [...] left flank pain; Currently Patient Understands: Comment: [facility] ED Note-Nursingon 05-28-2024 ED Note-Nursing Trommel Tender at bedside wh ile US was performed. pt tolerated well [facility] ED Note-Nursing Pt ambulatory back [...] Pt is A/Ox4 call light within reach [facility] ED Patient Summaryon 024 ED Patient Summary [facility] - Emergency Department [address] [place], [place] [id number] PATIENT DISCHARGE INSTRUCTIONS Patient Information Name: SHERLY ASTUDILLO Age: 24 Years Date of : 2000 [facility]: [id number] Reason For Visit: Back pain; Abdominal pain - ; ABD PAIN LT SIDE, LT LEG NUMB Arrival Time: 05/28/2024 14:14:57 Primary Care Physician: Radha Gomez MD Attending Physician: Pam Gao MD Comment: Visit Diagnosis: Diagnoses This Visit 6 weeks gestation of (Z3A.01) Abdominal pain - ([id number]) Back pain ([id number]) Low back pain with left-sided sciatica (M54.42) Pain in the side (R10.9) The Pharmacy at [facility] is open Tuesday through Tuesday from [...] drug addiction problems; contact the [facility] 28/03 Crisis Hotline -Text 0KXYI oj 742005. If you received any narcotics, sedation, or [...] With: Address: When: Jason MCNEAL, Radha Santo [address] [place] [address] 43452 Within 3 to 5 days Medication Information: The exam and treatment you received today in the [facility] Emergency Department were for an urgent problem and are not intended as complete care. It is important for you to follow up with a doctor, nurse practitioner, or physician?s assistant director of public works for ongoing care. If your symptoms become [...] so we can reach you if necessary. [facility] Emergency Department has provided you with [...] can happen (more content not included)... Normal [facility] ED Patient Summary [facility] ? Urgent Care [address] [place] [address] PATIENT DISCHARGE INSTRUCTIONS Patient Information Name: SHERLY ASTUDILLO Age: 24 Years Date of : 2000 Reason For Visit: UC - Abdominal Pain; LT SIDE PAIN, LEG PAIN Arrival Time: 05/28/2024 14:07:02 Primary Care Physician: Radha Gomez MD Attending Physician: Spenser Fang Comment: Patient Education Medication Information: The exam and treatment you received today in the [facility] Emergency Department were for an urgent problem and are not intended as complete care. It is important for you to follow up with a doctor, nurse practitioner, or physician?s assistant director of public works for ongoing care. If your symptoms become [...] so we can reach you if necessary. [facility] Emergency Department has provided you with [...] (R10.9) Currently (Z34.90) UC - Abdominal Pain ([id number]) If you received any narcotics, sedation, or [...] Disease Control and Prevention May 2014 Normal [facility] Lactic Acidon 05-28-2024 Lactic Acid 9.1 mg/dL Normal 4.5-19.8 [facility] Comment on above: Performed By: #### 2 [id number] #### [facility] (DEFAULT) [address] [place] [address] UA Tjrnw4tl 05-28-2024 UA Bacteria Trace [facility] Comment on above: Order Comment: Urina lysis Microscopic order added on by Discern Expert Rules system. Performed By: #### 5 [id number], [id number] #### [facility] (DEFAULT) [address] [place] [address] 58838 UA RBC None Seen [facility] Comment on above: Order Comment: Urina lysis Microscopic order added on by Discern Expert Rules system. Performed By: #### 5 [id number], [id number] #### [facility] (DEFAULT) [address] [place] [address] 90141 UA Squam Epi Moderate [facility] Comment on above: Order Comment: Urina lysis Microscopic order added on by [employer] Expert Rules system. Performed By: #### 5 [id number], [id number] #### [facility] (DEFAULT) [address] [place] [address] 75893 UA WBC 0-2 [facility] Comment on above: Order Comment: Urina lysis Microscopic order added on by [employer] Expert Rules system. Performed By: #### 5 [id number], [id number] #### [facility] (DEFAULT) [address] [place] [address] UA w Culture if Ind Standard on 05-28-2024 Breakpoint UA [facility] Comment on above: Performed By: #### 5 [id number], [id number] #### [facility] (DEFAULT) [address] [place] [address] 07509 Color (U) Straw Normal [facility] Comment on above: Performed By: #### 5 [id number], [id number] #### [facility] (DEFAULT) [address] [place] [address] 11107 Culture? Not Indicated Invalid Interpretation Code [facility] Comment on above: Result Comment: Resu lt created by rule GL_MAGR_ADD_UA_CULT Result created by rule GL_MAGR_ADD_UA_CULT Performed By: #### 5 [id number], [id number] #### [facility] (DEFAULT) [address] [place] [address] 03604 Glucose (U) [Mass/Vol] Negative Normal [facility] Comment on above: Performed By: #### 5 [id number], [id number] #### [facility] (DEFAULT) [address] [place] [address] Ketones Ql (U) Negative Normal [facility] Comment on above: Performed By: #### 5 [id number], [id number] #### [facility] (DEFAULT) [address] [place] [address] Micro? Indicated Invalid Interpretation Code [facility] Comment on above: Result Comment: Resu lt created by rule GL_MAGR_ADD_UA_MICRO Performed By: #### 5 [id number], [id number] #### [facility] (DEFAULT) [address] [place] [address] UA Bilirubin Negative Normal [facility] Comment on above: Performed By: #### 5 [id number], [id number] #### [facility] (DEFAULT) [address] [place] [address] UA Blood Negative Normal NEGATIVE [facility] Comment on above: Performed By: #### 5 [id number], [id number] #### [facility] (DEFAULT) [address] [place] [address] 30689 UA Clarity SL CLOUDY Abnormal CLEAR [facility] Comment on above: Performed By: #### 5 [id number], [id number] #### [facility] (DEFAULT) [address] [place] [address] 62425 UA Leuk Est SMALL Abnormal NEGATIVE [facility] Comment on above: Performed By: #### 5 [id number], [id number] #### [facility] (DEFAULT) [address] [place] [address] 14546 UA Nitrite Negative Normal NEGATIVE [facility] Comment on above: Performed By: #### 5 5343852, [id number] #### [facility] (DEFAULT) [address] [place] [address] 23732 UA pH 6.0 Normal 5-8 [facility] Comment on above: Performed By: #### 5 [id number], [id number] #### [facility] (DEFAULT) [address] [place] [address] UA Protein Negative Normal NEGATIVE [facility] Comment on above: Performed By: #### 5 [id number], [id number] #### [facility] (DEFAULT) [address] [place] [address] 25994 UA Spec Grav 1.010 Normal 1.001-1.035 [facility] Comment on above: Performed By: #### 5 [id number], [id number] #### [facility] (DEFAULT) [address] [place] [address] UA Urobilinogen 0.2 mg/dL Normal 0.2-1.0 [facility] Comment on above: Performed By: #### 5 [id number], [id number] #### [facility] (DEFAULT) [address] [place] [address] Urine Source Clean Catch Normal [facility] Comment on above: Performed By: #### 5 [id number], [id number] #### [facility] (DEFAULT) [address] [place] [address] US 1st Trimesteron 05-28-2024 US 1st Trimester [...] Yeh MD 05/28/24 7:34 pm Technologist: PM [facility] US Transvaginalon 05-28-2024 US Transvaginal [...] Radha Yeh MD 05/28/24 7:34 pm Technologist: [facility] Note- Provideron 05-28-2024 Urgent Care [...] History Medical history: Resolved Ankle fracture, left (61625870): Resolved. 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 Surgical history: Cholecystectomy (55860069).. Family history: Anxiety Father Sister Diabetes mellitus [...] Diagnosis Abdominal pain, acute, left upper quadrant (LUG40-NG R10.12, Discharge, Medical) Acute left flank pain (RZG77-LK R10.9, Discharge, Medical) Currently (SXF46-WI Z34.90, Discharge, Medical) Plan Condition: Stable, Guarded. 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 Authentication Interface Message Text Attestation signed [...] OMFS PATIENT VISIT CHIEF COMPLAINT: Toothache and Herman Teeth HISTORY OF PRESENT ILLNESS: 24-year-old female [...] canal DIAGNOSIS: Abnormal tooth eruption (Primary Diagnosis) [[id number]] Impacted third molar tooth [[id number]] Caries, Impacted wisdom teeth, and Retained dental root ASSESSMENT: #1 Caries #16 Caries #17 and #32, Partial bony Impaction with pericoronitis PLAN: Surgical extractions #'s 17, 32, Extractions #'s 1, 16, and with local anesthesia Pavan Lee DMD, MD Normal [facility] [employer] Authentication Interface Message Text Normal [facility] Coding Summaryon 03-28-2024 Coding Summary HTMLBase 64 RqbmxrqpJWv1iOl+PGhlYWQ +[id number] NMTElOSywgQVBQTElOSyIgb hHaLA6lgHKyYIKk IC8+DW8gFQSmOsgsdWNqd1S 1yTH3H05kbr4zOOcoySK9KR NhFzOgghwtj8dmqLp9XMweR mluOyBt QYEzcG33OUO0xZ76Zv50eKH rxUMxs6uluIh8TgMeCNZpSO N3lJqrRQxun3LwPRYoA59ol HTof9B1 JREvlMpeuXGrCiQblNH3gO8 bPBikimrjc9tqeqlxPqw2bf 67sKPiv9E9cYQ1R5SmgxM5C GJvbGQg ZsugbYHTfY4oyejpa8wocjb fYwBcNPBvIQj2YZn9BDQvgS eeQbErZC34KQM6ISFwdtVbC 2FsLWFs tQltIwO4f4H8Sc7YW0SOLby hY4MBDEIHHWxtdPX+PC90cj 71J4ExEficCxg9KMSxYFZ7p LI0sX8p VOJdZQkou4M0vTK9X5CjppQ mim5vz5ryRQIpNNzeE69jpG Dhf8H4YJSmiNS8GKTjkFilH iBzaG93 Oyc+ZCTznMrso8AgVnvws0t db2lbtVr6NmueFWSnubEzqN flETR1q3IuUc1rTFObjDG2t PE1tD9y OvBiPaX8QLjoJ549CtNbgEO gJylzS14hL7LqrCC+PHRyPj g9KABaoKfpGT7uF2QoPFJbn mctbGVm zQlyLV4qENOehdhpSDNvzT1 mOBAgX6l6RxWcOrK6HPavX4 MrEGPoesivTg86uV3lAyGdE qL7DEjq I0BktpU0JAXrrSKoTOlyQFE 8T42iu2M9CYReTBUkEFN7kF E5aE3eqVwdtviooYUwhNehu mVydGlj IUieZDrkO351XFXopPoaHrA vZGluZyBEYXRlOiAgMDcvMj QvMjAyNDwvdGQ+GXGgVLR0d WxlPSAn mYFjWVcfPy5kaAvaaZcfQM9 qXHCsjteyAZVgvN1iEAKgwS WpbXuzWV6wQYWyjnmzz772B iAxMHB0 LAQbgFEcD0XwsX7eMoFoTFC vIKNhZ0HzhEDsLJcvW073OC fvOlP3XVNtgaXxM6KhWRXkh WduOiB0 d8A8Sc8Rj9CkbnkkR8TbxSG oZfGdIkzhQBe9U7DqPlqxuZ I+IK35PHJuJH95DQt3CPQ0d WxlPSdi LLByF7UpjH9kTgLfVSTeXBW kOyc+PHRhYmxlIHdpZHRoPS aeAPHzAiCnaRjbTJ1yVs6iW GVyLWNv xGasnRBeRcErc0vsHQBuWVo iAS2gmDvvS5WovQM5AJLvq1 z4Us44U07lW2SjrXX+PGNvb TJ1dFU4 nB9kKrYrFhS6ZPuzI709NiH ywYPjCcprg4kdv9cdxXg9Kq H1GBSvoxHywCpjEHN8l7FkL o77D04b IHdpZHRoPSIxNSUiIHZhbGl bat8cmS4eVj4+LGGvrWM3iF A9xE0gBfJwSmV5EAbyI226R nRvcCIv Xizta2dkp9tovFm0BjQnBQN qfpTzbXjdXEN7z8ZaOt32N2 IfaApnt6NhZtx6xt42oTFks 7V5yTZ1 T2NqKRFokatmyMXcpXhoDQ8 sWERdtzveEGQrmC2rCBYyC0 r2KbUzFfU2IRexM4PlwoL6U GJvbGQg GBLfwUXWwC6zonlql6bewdr dYkPqARViPAl7AEp4ZTGtzQ pzKsReQMJ8HvU8HOE0jUXor C2niBqq bnswkM8pGet+GJN6cYWjzFK QRE2yEoljwIZ+JCMuWQN0gK fuHSkiGAUmkO9nCGHiD8p3P iAwLjA1 MNdrF3ZqbnL8CKSvtZQjZNC hmCRCsG8nualby3llavpuZf MiWDKqABd8TXt2LKBzhGnyW iBsZWZ0 MhY2LGM7aXFtcI2zvOdmnfw ypQ2xRbv+PusddZjhDZB3FC d9D0YnImq2NYTurAtdMG7he GFkZGlu Nc1tkPenkKjbMF0zAHDjjos nm405PbWmc5fuQHRfyVYnFB glZUS4E98ov8M8ULNxSCJhW AH9bHJ6 mH0cuXjcjysnoBSkeLjyfeF lcIdwJNorYZxvM081ZMAprI azOrBqIAh0C6NaSzr0ANAdu SzjKF0v fJFtLLmqAc0xvKrnbYepZL0 oSMBshzfrv356CdKce6ryMX FvaJLwPDmnSUQ7W91ry4G9J CMwMDAw ARD9xBZ7wN7jtJxcbupoiAN mdDsgdmVydGljYWwtYWxpZ2 70KYCscXjfLoOksDs2X2FuH px1WKXs oOggXK2bcHBnIFwdJx0hbZy ejQarVQ0jMNDzeaqrq554Ue Gca3vcSYDpvFDyNDhkHNC3A 37mg0M9 TGCySVZzXTE1uWA5aG6cuUi nbjogbGVmdDsgdmVydGljYW ooITzbT261EYLgiBrnSnDvt GllbnQg SUxdXIi0J3GcUiuwvJT+PC9 8GWBgCY54xQPlmKCnj6bjkB r3LhXfPPTrVEX2gZihCOkwl 3JkZXIt U55arZDam7N5TRWlmMhzyCP nTxGqoUH9zE6tXKmnrcaly7 fjqghbAroap9lanw89nM79G 29sIHdp ZHRoPSIzMCUiIHZhbGlnbj0 zxP9zLg1+JOZgqYU9mXQ5lC 8pPHHbXjQ1KAfpV026BgFjf CIvPjxj r4rpd7ptjZd6SwL3HICzprJ cgJypWTQ9a5BmUb79J71sXC dpZHRoPSIyMCUiIHZhbGlnb i7sfV3b Ii8+IHHxrZR3rNM2pE7vVcA qCaZ7DBqkU540OmLrcCNvHz vbI12uP8OjoKK+KKBdWog0G CBzdHls IQ9ljXXmUNmoWj6aXSM0IhO lAmFjAWvlM2WzAAQywxcwwe wavMS0JJFdYKBavO29Kj1hj DogMTBw rEALoC4qweawo1qjphiaFxR yDAHpWWn6ZFy0LVZyeMbfHi VdAKB2IyB9YDG5gAAaiE5ch Glnbjog rV8dI2ZmPWWahpffFj89cS2 rXjBnSgI3RTnhXxc+Q1JBV0 ZPUkQsIEJSRUFOTkUgTUlDS EVMTEU8 K9HzWwi9AMQwaMkrZC9dzFA fXJikSw6rsBhwvDbhQW3iUS MqybulRAXmwT1cZURrwDBgz PldPO5q TTYhgfhzi421XhGxRJI1YPR shUThK6KkwK0kDcDnONWwNT WmM7XqlDZgAOowR248GZmsQ aE6ROOd mwLbT6HpENEhhFdeUrI2q2V 2Yv1hTp8iTW9uOSr2JQ85IA 86iXFlz7I9gML7I1FsSPXjz mctcmln oMV1GARdLJKrsW29nTFtTGe cId6ry6A2z500GYUgRTOllR 80Zc7dlFylEMCguAKBxS1bp xavl0tv oreeAzMsMGMlVDt6JKk3PWG daQdbLrBeOOJ0JlN1IBG8cZ WaqO6mgTrkwwinbG1bAuo+M jYgWWVh tvA7R7RtKqe3KXIdsGetTH6 bpXXnBYqoNt2leHcqsWxuRW 5bMALketlrIIXhnF5xCHZov HRvbTog PU1gHWMwxqzhg731VtCoFSW 7WWWqxIJeM8PrbZ2lAhCsVK UiDSYgU3PbsODdENskF597L GxlZnQ7 HOCqgqQwD3TuHCZntZsjNdV 0r4A1Ds5FFJ8KQBA9E1AwQp o9VXAdbAmgQZ0mzKVzALwxN c9afQjq gKhoPN9nGBWicttwFHEzmK7 xAXQskRWfzMflVU5oWKKyei tyx373JyViDPZ2LJWtsELtI 9OxuX7v UjDwJQAxLQBoT4CnoOAsPQw cV424EMvcFrD7CTVkpsDwS0 AmYLOilPjvNrV0r5W8Qm1UK DwvdGQ+ KV01cw17Y2XuEdsrUom1ZMP kYBU2tZM0xK4sBWRuVRetf1 V7iHE8S2LvuiDblb2xf1goA XBzZTog J77taYHsr4L2PKKcxHI4HTH mkZcfKsFiwK59Nkg+PGNvbG bzg9ZnDtcit2ftu1vuyIs1D jMwJSIg vuYoxUmuDHS7b0FmPn82V23 sIHdpZHRoPSIzMCUiIHZhbG fezw1dyD5tBv0+MWPngPQ3i GQ3oO8p NhGuYiX6XPdeL509IpOyqHB oFnama5djk0xhyDr2PeFpFD WhtzVwgQhvJTT8f3QnAc66C 2NvbGdy o0CxLah2bz39mHMkv2D0uWY 8W9HwQOBjmnlohTBtqYfhDR 5pHNVtyjzuBHAerD3uHXUcR 5z1XaHk DbK5BPwjJ0ZuzdQ2YNVlcDA tATVagXKZiD5tvalyq2zbog uyQiGmVYQbRPr0ZDz4MZYyc WduOiBs HME6JpS9AMX0cUTpwN3wnFa upsszhT1tVbw+OGf7u9znuA OtIZ5tkQP4HP40YQ84eQGfn 7R4rNH8 L4TdNHNcissaucexfZH2OVC gEVCadM13Eo7ucSgtVn5iQN KlSQD8ZEFovGWuL6DigB1mM iAjMDAw CALlA5TcrNErOFbgP176KOb wSoR2RHEdlsUgU3MnQMKxaN znRhY3g4R4Xb1IWU95TL36Z M74kMZz l8N6fFK2A2UkJYPonkmgyaq hmZB4AYXrXQDvaM36Sk3yqO qgDo2kHFDvOKZ8ZSFyqLQtU 7JxxX3w JmJtXKKuLRVuA0FcbUZdTSb wP534FHlcQxR9YMWyfxMcD2 KqKMEacZdsBiX2s9Z7Jg5PK t54DO54 WQ05bBQfc7G7kAJ8D4HdSBV nhvssyddboQP1KFQvLXIjuC 27Hb9zuMugBt5nUYSvIHB7C FRpbWVz P0PboG4nNyYqNVTqFWOuE7M fqAGjRXelU147XQalQuX3SY ZwpqVoC1YoCLXtcPihEoT2n 0K6Nn9A ZRrcmrr0L6ExRitidPU+PC9 2JNHaNL39gBWmzIDcw1wieW y3JjKbLGUcGYU8jGymNBzyw 3JkZXIt Y29 (more content not included)... [facility] Progesterone LCon 03-15-2024 Progesterone LC 1.4 ng/mL Invalid Interpretation Code [facility] Comment on above: Result Comment: Foll icular phase 0.1 - 0.9 Luteal phase 1.8 - 23.9 Ovulation phase 0.1 - 12.0 First trimester 11.0 - 44.3 Second trimester 25.4 - 83.3 Third trimester 58.7 - 214.0 Postmenopausal 0.0 - 0.1 Performed At: [facility] [id number] Sarah Beal PhD Ph:[phone] Performed By: #### 3 [id number] ####[facility] (DEFAULT)[address] [place] [address] Provider Orderson 03-14-2024 Provider Orders [id number] [id number] [facility] Coding Summaryon 02-20-2024 Coding Summary HTMLBase 64 WjghwrgdWVz0iRb+PGhlYWQ +DD4WYTJhO22sqZHhvJ5pZ5 NMTElOSywgQVBQTElOSyIgb xStDJ7jiNOzUFHx IC8+XR9fRFUcBeqgqVBcb4J 4xSC9E04nhi1zQTigqLK3DO QiKvAnkfmwx6wizEi6CCeaX mluOyBt ZIEofB63UEG8tU49Ts24oHK vnJMcj8mvvEp0SrYmVCObBS V5rGvpSKzyc6UhWACuT70ck SYdd3E1 YWYrbYwpbBMyVgWxqBV4nM6 aWQfdrqqxc2tmoapsYbc4ki 53zDXnm9M8zYJ6C3HylsK1G GJvbGQg DgzevJTQsC0snjwgr0nxzdh bEgJqHRLzXVm4PTk2YHUdxW ohRjWzGM99PPB4LQJwghGqZ 2FsLWFs jSonEoJ4k4V6Jx6DN8XDNkb dO4DXWTCDZAxsvXI+PC90cj 41V7BrFgioFon7BUMqCYM6t HQ5aK0r IRHtZJwyl1U0lVB5K6RuaaO crl3vs9zfBTJeYRppL84hyA Its8I4XYToaIU1GJNjgRlvN iBzaG93 Oyc+LCUckRhrk3AgZdbij7f ff3ercGb0UefiTTYrwzXdeE ldDGY5c0RjMk4bSIOmaTU0z TA5yQ1n JdUbDtN9SOqlJ396BsEowUH nNbrbG40jK5DsfFT+PHRyPj y3DKFvtFrfDK0dD4JdFIThc mctbGVm zRnsGW4lLYCobmmrYHJbeN7 uUTTxJ4r1OeKkBfC6DUfxL4 WwXUUjyurwWl94lQ9oJuPdB mR7FBwt M8KmqtH7JYBqpAPwEBsmAXO 5X20zu2I4LVChSGPjQPW4rL N5dS1ayWnfkfragHAgoIaka mVydGlj HKozSNjmO567ERNbjKhmVyS vZGluZyBEYXRlOiAgMDYvMT cvMjAyNDwvdGQ+LUFlDUM0q WxlPSAn rBRvEGelDl8byBjswFfoJG1 cYUBrdnxlGBRnzK0iVPUkpL MdgUycKD2gNZKbuqfvh398G iAxMHB0 CNTnvHArB6BgiC2gCyMwMRN yMPGoC6ZgmQNlVKbjR458UK abQyP0GOPbngItE4HcMEDbi WduOiB0 s5S8Vb6Uj9YlrfzzN9WdiAX xGmEpNgkoMGk5A6FdUyincD I+XY98ENXnBL38UYj4HNV1r WxlPSdi JOVwJ3JfqY4cQoHtMKMkGMF kOyc+PHRhYmxlIHdpZHRoPS uhLHYcLtQyzGstVW6rSw5nD GVyLWNv uPakrUTnJoHdn6lhEHTlPPj zSX3thAqsG4FmqNB2IGEwk1 s8Co55Y02xR6ByiKV+PGNvb RA4jAP4 mB9fLdHqVrI0IZdqK564CtF liNKaXpqxf5jof7nznDt0Xx J1MNQqydPtcIvfKUR0o7FpC z98V50w IHdpZHRoPSIxNSUiIHZhbGl pqz9tzM5sXs1+IQMpeBV2uA J3bP5xItElQhL7WMogV843N nRvcCIv Ngdyc5mdv0fdlYl5VgUhDGB aztIucYhuTKS2d8NcQt43Y9 NvcXtwu3WbTty0mw10rYFve 4N1zQX0 S2QfVSDfibtonMYrnUydHF5 zJHXwvctyJXXcrC4xIGGhG8 e2YkYlRaM9HJgtW4UgnrK5B GJvbGQg AKVqpYURoJ1wswszp1nxowl bXnPlEIOpIMg6PHf2IRKwlG pvPpTjTKN3GsJ0QQF6bOLrc I3uwLra oncejC0iQvq+UTY5aAIxgQH GOB6iTuwyuRH+VOIiXEE7nS scVEgrMBOlbU9wRLLpI3v1Q iAwLjA1 OWxpF6ZlswQ9SGNrcXCpWNY ssMXCcF5kcbdou1rzgepeGz UqPWEgHGz5UJj4HOHrgKqoR iBsZWZ0 IeG6CEG8iNFxzK2xjEpshpj ydZ4lEsa+WoozbPhtSFJ0WD s2K0ZgGrb1QKQyhFieFX5kw GFkZGlu Be9hkKuuqUvbEW6aHHNgzjz ow427TnZix7gzJKVnbBNrOR biNOR3M42ou5F6OFYnNFEeC UZ6gGW4 sY3epNnezchqkTIufCdwgzS btBrvZWtxCLguZ617HZGycZ wkFcGrRYt3C0JiHmf0TPLaw EasLD2c jKUePInuNw4mzEvplNhwJO5 uWPWimfwpx281AlYjm9taEF QwcJVbUOrySNU3Y50rn9F7J CMwMDAw KAK7dAI4vB7oaNsffcdggHO mdDsgdmVydGljYWwtYWxpZ2 65HJCckYcvQbEmtHm1O9ZgW wi1ZYYr cVmyJM3dqBXkHRoeMk9upCf mkIinYC5pSKBgspxjj043Np Dvf7hmOJMxgLPdXOgwVYX4K 16zq8U0 ABClGFJlNUZ7pML9sV0qdYy nbjogbGVmdDsgdmVydGljYW rgHItoB681PUDzoSswHgMsv GllbnQg CBvaHNv5S7MoKmaeiYC+PC9 4QFTfRO54oTKltMVph5jkzM h5TiZqLVRdIMU7vZarYSaxd 3JkZXIt E30nrHUza7U0UGHneAhliQN jYlQxkTW6jK4iCCdetfqnr5 mxfmvmJwpvr6dbgs01oK57H 29sIHdp ZHRoPSIzMCUiIHZhbGlnbj0 hkX6vOa0+NXNvaZH7zFW9qI 2kNJQuNwV9DFnlF818JaLht CIvPjxj u9reg3lzkQv0HsP9QOBzplN umMpfWXO7r0GuJh78Y58vRA dpZHRoPSIyMCUiIHZhbGlnb d9ziI6u Ii8+KFWiyED0uDK2nT7eRkA uVrU0TRdbN580AoOhaSLuFb khX83pM0ThuAH+LMDeBmj0O CBzdHls PI0vnMImUDseMp0iXSY9DjE eSoCkTZoaT6YtHJXmfpyzbi ervKX0VCAsTIAevY80Yn2xe DogMTBw kDKIiE5lmpyeg7gyzpsqLqA rMJBpXLx6JRw9FEAzbTcyEz ShRBK0OvX0VWJ5oFXmdW7jp Glnbjog sY2gW1ZhFAJfvdxoPd51fD8 jVlGwLfT3XKihOrk+Q1JBV0 ZPUkQsIEJSRUFOTkUgTUlDS EVMTEU8 V5XtXyg8FSKpbFffQT4piVH aPHxjDd7drPclpXadWS9iGG LtgkqpDPWreQ8cXZBeuZEod CukEO4o BWNzrqtwx381LyOeFGH8VYO fqLBuP5RgbY6qVhXlZSSkSM WjU6SvrRPeHIcoL659FKmjB kV0QAMt vaEbN1DaZPPddLvfVlO0t5Z 7Sf1dVv3dGO3qVLy7RF40VF 72fEIkl7S4iWO5V1NgJKFjd mctcmln kJO8NYMsOCQgzB60uRXuHQz mJh0hb6K2r711IDLcIQFvfT 37Ih8pnMjgZQSwrGWSfB2uf xibr3go tgjrKpZyVTBpVHd5WEr4BGE kfObaOdVbLXA4DqX8DUC5mR KbgQ9vgBmjljvluA0nJws+M jUgWWVh coT4B6DiQnf9TNSjlLfyVL0 vcZQfWVavYs9wdJnpvBpvMY 3lEVXpqwdcLFDnoU3bULPbx HRvbTog QX7fJARfodkef414IhVcFLT 5WASacGBvI0SleY1gZaRrCK NvTLFfU8JpbZAeLXzmC611F GxlZnQ7 IDUnbhLbJ3NbJJJseEmdClC 7i3B9Ic6TCK7TCAE6B0NgBj n0TFJxqYpmTF3xvTWcMRjhI d6zkCqk gRjmRS0sYGBpcoqxZCPnpF2 gQLZnyRJgoFowAZ5cUMClhi abm378BpNuDWA3SANsdLIrE 6BmdV2e RxThDUWuKSJhC4IceERoIUp tC740GCqmVsI6QDSomuSmQ5 RgSYTnwHenRtI0d3S1Vp6HQ DwvdGQ+ LL23qk19Z0EcXjeoNdr8FRI aMSW8lIK5gQ7sPGChGPogf7 I2aZU2B6KhcmAbnc7kh3ugJ XBzZTog Y19dnHOkn4C0HUCwkJL6KPB dqJejOtUwnJ42Hbd+PGNvbG fee4ZrIeihu1shy8xvqUy9E jMwJSIg yuSjuOlqZAL3t0UoEy15G36 sIHdpZHRoPSIzMCUiIHZhbG ttlv8svI8vKz1+ZKGxpNE8n GX2oQ6p WxLtTpX6MPwyX306FyIwaCF uSoaog1onb2ycoVr2OlJzRM KoijLbpUdsWTO9d0YmVt10E 2NvbGdy x1PhWex3dq73wMLkb8R4kMP 8U4LeKPLjybhkqRUnmDhyRW 8xMGNletpiFEHccA5sYYMhC 4i4PhXz UbF9RVfvP3DsthE2GRRyaVB oHIPevWQFqI0soqdys0dyei vbJfCaSHYqUTk1SXi4YSAem WduOiBs CFC5CbC3RFN2zOCxtI3qrTj wuoxpkH8bVak+XHx9x1defQ QoPU4nkXA2JE80HI82mLEls 0V7lIL4 F5LuELJwnbxtiagwwYT3OPM xQNCduA81Qr7tlAmwAd5tVB YxWWD1WKKlcWZaX9GgoO1zO iAjMDAw JZFrQ6JbcLFmHFkaP807CWn uTvR7LDAovwYyN3YfRIVuxU uoAuR6x7M4Yt0CLB08VQ27R Q72tQEe a2A4kQM2O5NbYAYhdwgqzto oxXJ3PQDoWOZyzA15Hb0rwU trTs8dKLLuFGS0IUXqiHTyP 3VagW2r EbVvOHPlEMNxB2EavJClENz aN388VVvkMfR2PZDlflQpQ9 KdULQinNsfChQ9y9P2Bp0CX h01VO50 DX58xEKxl4K0gKP6G9BeIRU tllmylxwdhCV0SRYtHJQlrZ 80Vb1lvElhEw7dUOLvZCF3X FRpbWVz Y6LfkV6hLtXpJROsNROhU4U agJOyHCfvY436FOjwXcM0EX SuvqZxZ7GrGOTozEjpSoY0m 7O7Hw8Q ICjuqpx8H3JiPbzssXG+PC9 3DDWpYK81uQNxuBMor6zakL z8JzArUZUaXQY8sNfaTIiea 3JkZXIt Y29 (more content not included)... [facility] Progesterone LCon 02-15-2024 Progesterone LC 18.8 ng/mL Invalid Interpretation Code [facility] Comment on above: Result Comment: Foll icular phase 0.1 - 0.9 Luteal phase 1.8 - 23.9 Ovulation phase 0.1 - 12.0 First trimester 11.0 - 44.3 Second trimester 25.4 - 83.3 Third trimester 58.7 - 214.0 Postmenopausal 0.0 - 0.1 Performed At: [facility] [id number] Sarah Beal PhD Ph:[id number] Performed By: #### 3 [id number] #### [facility] (DEFAULT) [address] [place] [address] Provider Orderson 02-14-2024 Provider Orders [id number]#1.00O TGTIFF [facility] Coding Summaryon 01-19-2024 Coding Summary HTMLBase 64 SzgbpgkyTBb5vTh+PGhlYWQ +AW2CVLGbE80tnPVtdV1vV2 NMTElOSywgQVBQTElOSyIgb qYaLY4txBXfRXMn IC8+KT2tZBQsAzwknFOwt6Y 1iOF5P40rli1vYKblwUZ7KE OuNoOfmwhxr0wqxRi8WCgkL mluOyBt YCEpuT82PIS2fA22Bj51xDC cpFAom2yvvHw3PfWsICQtWA Y7hDrgECrut5AjUTBjS58lq RAzf1Y5 HWSzeMpkgROwCcZxqPG5kZ1 kGLuixkfmv2bpxwaiDqh6xy 01tHJsj2J1uAR4V0EikyV5J GJvbGQg LoocuOKAeT6sqmhru1yphnk iHkBeHCXiLGe6DJo4JCGsyU ptYvWcNC59ZGE8MIIxhfRfE 2FsLWFs bHpcIaY8g7I2Bs4EQ1FANua xL0HYRUOEJKaqcUF+PC90cj 16W1IoVmkiWes8CHArOLL9w AM9vF5n ZMYhIEhgx0N3rEZ1S9HndnL wrr7hj4gkIMMeVDckA94owV Jlr5W9EOOtsTC2UBCbzLupM iBzaG93 Oyc+KBGzaVvdb7CpClwqc1g oq5copOe0XaikKNEtfqBwkV wnPAQ0i0CcNb3sOIYduRJ6o TG7rB2c XhRwGsM9LWklJ567HyAedXX yBnmmE34qB4TfnBX+PHRyPj y7DDQaoTeyIC2lM2YeEZZws mctbGVm sPcbVM9sKXVbvpjgQCTpfC1 xZYHfU3l2DfPsNjL8OEtsJ8 EeWZRqrddtHw21sG5uHsXlJ qS2INup Q2GywuP8ALPsnDLgSRkwUVN 2J16fo2E2VPKyTIZqMEI1oD L0dS7rdPfrouvnyHZbnYzdc mVydGlj AIsjSPetX538SHUuvHbpWjW vZGluZyBEYXRlOiAgMDUvMT YvMjAyNDwvdGQ+JKFeHQW1e WxlPSAn nHSrVIbkSy3uoHqeyXqfTZ1 iSNTinziwDNNsnM3kECVpnW CaxRyqMP7kEHGskxzih083Q iAxMHB0 QAPsgSLhT7NyjS1nSxLxPVF iWHWuP2ThbFCiNRxxI689WE feKkW3CXXjxoGzG7RuZYRmz WduOiB0 j8D5Iv0Kp5FgpupkY3XnfMG pLvSpItksAFs1C5BhXksrtM I+VJ82XBZfJC36OPt5IRR9z WxlPSdi UQEqM7WjwY7tRxNuMQZxJKW kOyc+PHRhYmxlIHdpZHRoPS poNTOxEqRurPyrVH8vQk9xU GVyLWNv jJtgoSWaEoYzq2jtDCBcSLu fUX6eiIzeE3VzvNW5TACap2 f1Gg39B08iI1FkgKL+PGNvb CB6vGC4 aJ4wOdMbZtC8VIiiE133IoR idZKiXejct4wdh5izzVs2Th C6FOAfdpRekObrYSY8u4GiT o15N62g IHdpZHRoPSIxNSUiIHZhbGl ayl2smD7dJq1+OLYxrJU3dJ F8xM8sIfMgKqV7BYvtI675R nRvcCIv Yktas9rfy0bmpWv9MfOlEGS cvcAgvSzlTNM9b6JaOd65S0 DnaIsfk9GsKck7yp16pXLno 1D5vVV4 A3YoAXPtxtmylXMzeFypCB9 hCRJsqsbeWBJmkC4eDELwN1 a3VpAfElB9LHhaI9FybsE5V GJvbGQg WBEcdUJTyR6jcxorl5cedzf xKzWiFAGeIYa4DZg5DLYzhV reDhHlVGJ4FnY9CDI5sGOkb K2akAnf ijmnvK8qYnr+OAA4jFGvbIF CHX9mHnpwdVR+POEkFEU1rP thEXkbUTZhaZ5kEDNhR1p9F iAwLjA1 YBqvH2QmyhL6JIEmhLOlWDX tfIJPmQ8vtagvq4qswrgvGm ZkJEDaIZn2ORs0AEEhoArdP iBsZWZ0 FfK8MEQ6kWBolE5qpBmtuyx mxI8yZrw+InmtcHyaOFF2WX q7B7LrCxy6ONNiqOowSD2zq GFkZGlu Xi8ehIbdqQfvCN2hVYAppes lu224OpRrf0jbEDWnwIAsMV aqTDA1N94lr3Z7RDPsVAPuH NY7hOT7 pX7vkEsfguwudVIurElrvdF jmFwnNRtzLYbzS090EVJlqT nvVtLuQIc5A5UnGdl7FGVvs EqdCJ1z iTYbQYfwOy3zoRdevAsxBY2 iSWNllzxpd105VsOmt3byOZ VudCOfXIomVCR9Y16bo8Y4T CMwMDAw DXF7pXM4kI4snKhruucocWB mdDsgdmVydGljYWwtYWxpZ2 68UAPjmUjkRqPtwWi2Y0JgA sa3IOGu xWauAG6ckXYtZZjcCh9rrCb tuHqfHC2oSEOkjzeyn074Jf Xei3gjMHVauDCrWYlzKDJ1R 51dq6M7 AAFvIJOqGMM8dYP4pX6ijAf nbjogbGVmdDsgdmVydGljYW tjMJfyK380TCMadVlxPoGja GllbnQg JRjlRHy9I8IuUbqbmLL+PC9 9QXPaNO47oZKccZZlc1uxqE g4BnDvJZIoGNM9kMyvXVslk 3JkZXIt Z38mkEHrr6S9SSXggSgayJJ xSsLpcIQ9lT8wLRciasebp4 mqaunsCklav0ngqk48nL77L 29sIHdp ZHRoPSIzMCUiIHZhbGlnbj0 fkU5cQq2+WGZtgAL5fTF4yI 1cTEYaDdN5XIqcA953VwKuy CIvPjxj y5bwb0iswSj4LcC2UDEmoaK roDmhKRW2u6KnFw88O22uDX dpZHRoPSIyMCUiIHZhbGlnb b1umG8w Ii8+VTKogWP2jSJ7rK2aWeT xOpE4SQjlS937XcYfqMPrMg xzD40nQ0RoyMT+VOGbQke1Y CBzdHls HN9lpRTiLTnfWd0oVNE5ZoM sIiJkDKeiI8SyHDNzwtrtpm owuUL5PFZuGIAsrA39Lk6ow DogMTBw eUHExT4hgboxo6prxnjbAjQ zACRsNPi9KSw7ALLrtVzeAk QbGJK3IoG9KPG7aIEjuD9mc Glnbjog bA7uS9FfUFPdxnsyEp54oF9 eXhFvVvD1IKnlHew+Q1JBV0 ZPUkQsIEJSRUFOTkUgTUlDS EVMTEU8 E1PtMpv9TAFvjExvHH4zoPS pWGksOj4duCxsnJueDG0mCI RjaxyvQPRfuC1rHRSphOKrs GoeNX2n UXVluolux364UiXhURU1XZL rxGEyQ2AgbG0iMsWdTNCxDK TiS9CrsQErXXsyK385ALjmV hB8TQXo iiAbX2BuITIowJkwViN2m8J 0Jx0nGe5eKG5oPOw8EP92JA 86kERkd8H4hDQ0R2PkSZJps mctcmln vMF0AGMkJNMuyS96eBTkZFd jPb6xg5I0r154LZGiNGYssR 25Av3ttDrvNRKoxZNQlP0ru yzni0ot llwmXyKvJEIiNXh7UKp0RHJ dzCuoEqLsERF2JuF7TTH5nD XibJ4mgNguccknnD7jGku+M jUgWWVh lpA3G6YvEtu0NITmlFixMA9 lkIIjUSoeWd9kzVvzwQkeMU 3lMVSwuuvlVYVheL7xVDGzr HRvbTog VW6iXOCgblqmi429JdZvWDR 9FPCtbJUjW4AfhF7aTwCdFF TqQCCeW7ZuaXUzSYnbS013H GxlZnQ7 PMOwznZqV2VmQQMzsVmuLuU 6d0A1Gw1RWN1MSXB5H8EjPd u7DGMmuMarEE5hrVLxRWmgD y9jpElc cKlzAS5nXETpzcdiCCBudY0 hJIVhmYDuiZfqFB3dGZMzgl jdi680BzDgHFG4AGAyiJNtO 0SjcQ0q RcDtUMZeMZObA4XatFWzNRw lT945MVgbJyE0NXYyfqDjO3 GeNGIylFvbTkO7d1G1Pi3MO DwvdGQ+ JP53nf29M5DoFwaoDow1BYU aOMT7sZD3rE1bYQXqOKhzw5 F0qJO5U5AwxzQvjv0pw1mpU XBzZTog Q36udQBxy1C1FPTroWH4OEM lcGbwXeSngQ65Bdq+PGNvbG xxf3LgZtltb8uzc1ineLg7B jMwJSIg kqFwbJciDIS1v1EoYa44R33 sIHdpZHRoPSIzMCUiIHZhbG tdvv1ucA5iFn7+TDYedJZ5j SF9bU6l EoIqQyG5JBurZ466JiLzmNM pElsyf5fpo8vvhOu5YtLdWL QyqkRusUvjCQI3v9UhSx80I 2NvbGdy q3ZyRrz6en65gNJaq7Q5iZA 2D0RkTXYxwtnmbJXjrPiaNX 0oISYiamtlTVSsfA7hCFEzF 3n8FjPm RbB2LVjaO0NjoeE1TKIraGX zMRLfcYYHxM8gqfaus7rzbu viWfGkVHMaINx2FTg7HIQxb WduOiBs TPR3WcO8ERK4zIIbqE6hdQp xfquizC7xFlc+YXp1t6nurB UyIQ9wtXI3OM77UZ31uCRde 6L2xGO7 I5HoFHFndxcszcmbbUL4VBM bZPPlaR59Ne1anWjnXr8yWO GxFEC0BFRwaCOqM2ShaP3sO iAjMDAw FOPlN3AwePIgITryU827GOi dObR2YUZyubBzB1SbCGBfvN vfKhX5k6Q4Ur8KKW23VE11M J17gDZj o0G2aUQ0E4OfBTBhmpcepxy mmZO1NMBgNQQmwK85Xe0anG oeXc4kJNZhWMP7WKEmvYWsL 4LdhE3u WcZvALVtHWDyB8QjdBNcTCz sJ286YOspPzJ4ZISbugWnL2 XcBKZodNqwLgS1f6I5Lf9CT f01GA79 WL67lWGed1N9yNU5A4SfXZT huqmyvgqkoCC8LUBzMMGfpP 26Ut0roFbrZl2fZXMyAFA5W FRpbWVz P6UrzN7xUoUwDLFpHZNlV1G cfQRkHLulA129UVjjYuT6GD BheePxA5EbWOChlNoiWdY1x 6E8Ph3A BQguhwv5K8QxSuucjGZ+PC9 6FNLuMK87uIEzrCMvb3friK j4PfCfQXHpNHD0gJqsPOdah 3JkZXIt Y29 (more content not included)... [facility] Progesterone LCon 01-18-2024 Progesterone LC 14.5 ng/mL Invalid Interpretation Code [facility] Comment on above: Result Comment: Foll icular phase 0.1 - 0.9 Luteal phase 1.8 - 23.9 Ovulation phase 0.1 - 12.0 First trimester 11.0 - 44.3 Second trimester 25.4 - 83.3 Third trimester 58.7 - 214.0 Postmenopausal 0.0 - 0.1 Performed At: [facility] [address] [place] [id number] Sarah Beal PhD Ph:[id number] Performed By: #### 3 [id number] #### [facility] ([facility]) [address] [place] [address] Provider Orderson 01-17-2024 Provider Orders [id number] [id number]#1.00 OTGTIFF Normal [facility] Coding Summaryon 12-21-2023 Coding Summary HTMLBase 64 OwmpjccyOXn1iZk+PGhlYWQ +CK3LPUToB99acBDapN6xC9 NMTElOSywgQVBQTElOSyIgb qGqQK1ljKWmWMNo IC8+SG6nGMBzSsiooDHvp9P 9hVJ8T52ajo3dBMiuyPP2BD XrWjXzqquxr0sxjUz1JKnjO mluOyBt ENJekV47HXZ3zA32It98uVG qlTVwf5htfHr6DgGaRSQiOG E4fDrqSFakn4XoSYXhM95fi DBir1C1 QSFzbRblcVZeIfYtiVR1gK8 eDGvaxmqms7irswphFkf4ii 49wZYhq4P4fVP7O9AehpJ6K GJvbGQg KclcdVVSuX4uosbwb9klduh eIxTfELGlQMm6HNt0XUSzpY hlPgSuKP05CKA1BDOkekClJ 2FsLWFs lMwwSrX9s5J2Uk2TF6YAQta qW1VHSUCVGAytiZZ+PC90cj 20Z9MlKjdxMuf3KSJxYLT7g NO3iY6z QFBlZFfte8K6jDG5O1DqgiL vsu2ze8taIUGyXQvgG40tvB Rxj2H8JNSfaFX1NDPzfWbuO iBzaG93 Oyc+VYFswAzyr1WiWakus5a de3mvrMn6SlqoHDQjqsLixX tmHZV8t7MpAw8pXWIcqLZ8g BU4wY5d GeLiZyM8MIzbP417GnZcvZN gMqvhG58kF9RdiGJ+PHRyPj g2UOOhnEdsKL7xL9BkCVVfs mctbGVm rIpiXJ3aYSAxbtrsMCDgwL7 hIOXrB4v2YaVgMsY1GHnjR7 EiIDThhovpAp25jE7bFvQpK uE0RTln O2PbozB1VNHsyXViVGbmTSQ 3D24la8A2PCNoYPMjHOI0nL M3yU1ykKhoojfdgECmzUofx mVydGlj MJufXJwgU673ICQvmRntReG vZGluZyBEYXRlOiAgMDQvMT cvMjAyNDwvdGQ+UMUlNGQ7l WxlPSAn rIJiHPisCh5puVymtHgvKU8 iKCJogzpjGRKxtC1vRMXhyH BooAlyBY5zWIElylezi384E iAxMHB0 BVBqjVIoT8GafO6sEcNuDGP pDBWnV4UdkBPiMRvgS959WA naEhX8PYQkkiRgK5FmFXJbs WduOiB0 a3Y2Hv2Jy9MeblxpJ3RxeGO qAqLiDnyfXNd6X7EdRyilxH I+QA06ISIpCN69UQt6JEK7k WxlPSdi NFXsB9NupC0aGfCzXQQjKDJ kOyc+PHRhYmxlIHdpZHRoPS sgNHPkEqLzlUkxVC1rSj3bG GVyLWNv jGkriHMxRoRil6uaLHYsKCs gIC6pjXoqT3PbnXV2NFTbb4 r8Ca55N40hO9LzjTH+PGNvb MI5bCA8 oK8iYxVpMqH4GIttF067GrO ndGFsRrfio8njt7hzpQs9Pt T8VLKdhoUxxDxgYZI2q7BaA b68L36g IHdpZHRoPSIxNSUiIHZhbGl wok8yiT3bMe7+PEJliLJ9rQ O1rN6vDiZgBzE8UPfvB024U nRvcCIv Rmszb3arw0jfdAk1KuBdQBR mjrXvdLilPJO8v9EkRc75J3 KpbRbpc5MkAlh4ur03bNRis 6A5pBD4 Q2HmKKIqfvhlsLMnjEivAL2 kUMPczdbgOKEwuM9wFWFsD2 y7TjAaNzT5QJpnK5GzvuS0Z GJvbGQg XPHqnHRKtT7zyrgye7dkqik sAxKzDCOuCZr4MXl9HULffE npSuXqDAO8QvE8YOP5pJJdy P2ytUte ihilvF1aFls+HWT1eXBlrVI SJR5eXyowhXO+ZHJxECL9yF qvONsjGQHwaP4dAKRiQ6z5S iAwLjA1 QZbdJ0BsgxS3NSUmtHXtLBO bbVGYmF1iewqzl6yjqmlzGb JeHADrFHc3MRi8DMIouLqiN iBsZWZ0 WpX3EEI0lFRfpT0fbQllcde rcS6gNwk+IcvpfMjoIDW2YP q9G9YyFtn4TFYnvRhaCK5hy GFkZGlu Xz1pnScoeSuqCW7sHXLsgji ey670CwGpx7qlTMVbdEPeJP duSTN0W85dh9O1UPYzOMZcP JV4kDB4 oG2wfKobhngqtAYpsIrnqqH pwYyqECwvPVlbR927DWEprP ysWpSgOGa8T0DjOdy1RPVoa AwjVU3b zRPhNYxgOp3zhMmhfKbwQR3 tXFGdotqvj035WdQsh7nnRQ EqmRSgCDdnQUC4C21nl6X5Q CMwMDAw PGW9nBW8dA5kgVeosrvkvGH mdDsgdmVydGljYWwtYWxpZ2 55NFZryWykCjSxtLh7S0FuX ik0TYIi xXovSU9prDFfKMpbVf9cpIf ceJkxEE8vMORvgsewj665Xf Lyf7bnCOGueCXdFIqmFZA6L 13sy6A5 SCTzNIEcIXF0wEO8fV9enPb nbjogbGVmdDsgdmVydGljYW lsHNivZ254HQVzgQasBcKwx GllbnQg UPryBKg2K9NwBtlvpAO+PC9 2OJTeRT50gHEedNSuk0ectR t7OaEtALUsGUE8vZpcNLcig 3JkZXIt M00ssXNhk2U4ZNVomZwclLC bRqOkgGL7pW1dOBnhtjhiu7 fipwowWrkib4zbta61dG58Z 29sIHdp ZHRoPSIzMCUiIHZhbGlnbj0 lgF4kOt7+NFCgtXQ0gEP9pH 2kOVWzFlH6YJgsB927EwAza CIvPjxj y3vpu1vntNe6McG8TILbhiW bkHupVBO3w3BgBb59J13iCW dpZHRoPSIyMCUiIHZhbGlnb f0kqT4q Ii8+OXUebXI8yYU5kG8mNgE xQyL7AFdnZ362KnPqzJEoLn deQ43gS9UwrBM+QXReSgi7W CBzdHls XX9ncOSoKMvqQh6mHKN4EvM bIwXxQNdjY5HuQVBmdswnpj klfTX5ADAtFKMwiW68Zy2lt DogMTBw vOAWhG2qowrqo0ienjdcEeZ hTCRhOVr1PYo5ARWbyWnsJo NqZDQ1XwK6OOX5uQLoqB0oc Glnbjog xS2rQ3SmURKmigimBs08bC2 rJfMaWtU1CEulFpu+Q1JBV0 ZPUkQsIEJSRUFOTkUgTUlDS EVMTEU8 Z1PmRkw3VRPkqTmaFZ3roGO oJPrhZm3amUsspXifNY3uNR HjsllyLMHjvC5aJZFcsODzx UbaZL6f PXGlayuse314JjCeTXG0YUX bdXHcB5PscP4tTzIxOCIeFD ArO2NwrFZiQVpcQ128MOdtB vB5BJWl pgIzW6WiOQIacVeyJuP0d7O 2Wi9aHt5sYW2tFBf3YJ08MH 18lRVvm8O2tSZ3D0GgNTDwt mctcmln wBX3FGMgVIKkuS49fGWsLTf oHc8qe3J0d920BGVkEICiaK 27Ho8hiEgtJWHsmXLFhP4kg fmvt1vy hmkkOeZaCFSeSVm0TDz5XDO kzKawKrTvFKJ1WkT6TXK5fJ QbvA2kdWksvempuR5eUhh+M jUgWWVh ynH5M4FqBbl9SUOprWhhAD8 nnLCmYNipAh6ucUyibXjkWA 8fPAKsnlosGOPagT0iVFLlh HRvbTog BN0wSQSsfcuhj576CyHlWXA 7RPIncKLiH0FugR3fXfMkJD UqFGYfF8PvwULmTFfxO562U GxlZnQ7 MEDkrvZuP7JoIXVwyTjbVcO 6t5N1Tm1UHC9ZSMG9G9AqSa d6PAUsxPybSI0gsJNzDIqgF e7yuPmk aVvjKP6gUTXsvptaRCTpvL2 kVKBybBFfgXwaEW7eDVCzzq amj173AkGtXWI0VJCzqKRwL 4UbuH3g AyRdCOTxKIWrI1HkdDCgDCg rU559TWcnGrM2JYUhigKoP3 SvLGUvhEvtXiY8h3R6Lq9DM DwvdGQ+ NQ63bl35W7ZpWtdtRaq4BOJ wIEN8aSL3iP6pNPQfDGuae8 Z0yHH2Y0IdzcVczu5qk4rrB XBzZTog V74rbXLfz3I6JIQnaON0HNT qoSzgCqXfiO42Moz+PGNvbG pgr2DxXhbxe2tfa0xdhMp6J jMwJSIg ciRbkEwbEXC6b6RwCh87Q37 sIHdpZHRoPSIzMCUiIHZhbG vbhq0uhF0qEk2+IAFojWS4q OC1lA3j CzCaLhT4MNaxW529AqTcrSQ oKiked1ioo4vceMd7TpUxEP NrifHzjUkeVPA3m4QaUs38E 2NvbGdy a5IdQcd8zr25sFKdc1B7tOQ 2F8JbZRUrhblwjXZwyWtxPL 4lEPLzxkajYUEvhC5qAEBlC 5p7DwSf WqG0BLebQ4LkpnA3VDDapOE vWMSnyIPAiG4diafzv7ghjp qlGvCzDKSbDTx9BNc4LLUbq WduOiBs TJM0ImJ0UYM6qIEckM0xnDo huptnyA4rPju+VCd2i2ehgF UrRB7irHF1JG40CN76pTGhz 6K7aGO1 R9ZvRQYfmxbskctbtFI3HDA hHZCbdE51Id2vfGxfMk4cEE SuDWC1BOCwtOQmU1LszN8vV iAjMDAw UZQiX4SipKAzEYtuN167CSh eMkC5DKOpreLiP5JyJUYdlH cvXpS9c9R4Cs6KCE57VM20W N71aRCa t6T1zEZ2M6JtNBRiptiwokq lmPH9RYFtRFAinX38Or8jpG jsZf9cKPKwMOB4NCUecBEiW 4OjbE0b ZwIxOZUzBPEoQ5PzzIUwPRq dC162QZojGsX4CYRestXkV1 DmBMSreDtsTyQ2w2J5Hw5GJ j52NV49 KC17oBCyd0X4tIX8Q5SdFMK mjtnjyrgopJJ1BKNvHUHubQ 29Cb4fnTznTy9mNESpIII8E FRpbWVz F3EirZ4pIuRiXBIxWBEiE4B tjTFqZPozO108EMazYlE1WF ApwvHfE0KaVOUkkItvZiP6r 2N0Qq6N YQlwmyh8N8JuOawlsBS+PC9 1HPFzJV29zWHjwNHzq9xikS v0OjXuQDAnLZB3aUftJTehe 3JkZXIt Y29 (more content not included)... [facility] Progesterone LCon 12-17-2023 Progesterone LC 9.6 ng/mL Invalid Interpretation Code [facility] Comment on above: Result Comment: Foll icular phase 0.1 - 0.9 Luteal phase 1.8 - 23.9 Ovulation phase 0.1 - 12.0 First trimester 11.0 - 44.3 Second trimester 25.4 - 83.3 Third trimester 58.7 - 214.0 Postmenopausal 0.0 - 0.1 Performed At: [address] [id number] Sarah Beal PhD Ph:[phone] Performed By: #### [id number] #### [facility] (DEFAULT) [address] [place] [address] Provider Orderson 12-16-2023 Provider Orders [id number] TGTIFF [facility] Mikael 01-04-2022 L --- Specimen: [id number] Received: 01/05/22 Status: QUOC Garber Num: [id number] Spec Type: Surgical Subm Dr: Rodney Lema MD Tissues: A Skin-Other than Cyst, tag, debridement or plastic repair (SCALP) Procedures: HE Stain/5, Gross/Micro L4 Patient Age/Sex Location Account Attending Physician Sherly Astudillo / [place]NOR [id number] Rodney Lema MD SPEC NUM: [id number] RECD: 01/05/22 STATUS: QUOC GARBER NUM: [id number] JANE: 01/04/[address] [facility] DR: Rodney Lema MD ENTERED: 01/05/22 AUDI [...] Fixative: 10% Neutral Buffered Formalin (ESTELA/YJ) Specimen: [id number] Received: 01/05/22 Status: QUOC Garber Num: [id number] Spec Type: Surgical Subm Dr: Rodney Lema MD Tissues: A Skin-Other than Cyst, tag, debridement or plastic repair (SCALP) Procedures: HE Stain/5, Gross/Micro L4 Patient: Sherly Astudillo [id number] (Continued) Specimen: [id number] Received: 01/05/22 (Continued) Signed (signature on file) Debora Cintron MD 01/07/22 0930 Specimen: [id number] Received: 01/05/22 Status: QUOC Terrynavin Num: [id number] Spec Type: Surgical Subm Dr: Rodney Lema MD Tissues: A Skin-Other than Cyst, tag, debridement or plastic repair (SCALP) Procedures: HE Stain/5, Gross/Micro L4 Patient: Sherly Astudillo [id number] (Continued) Specimen: [id number] Received: 01/05/22 (Continued) Microscopic Description Six glass slides with H E stained material and two IHC stained slides have been examined. The microscopic findings support the above pathologic diagnosis. ANALYTE SPECIFIC REAGENT (ASR) DISCLAIMER: The use of one or more reagents in the above tests is regulated as an analyte specific reagent (ASR). The performance characteristics were determined by the [facility] of [facility]. Immunohistochemistry assays have not been validated on decalcified tissue. Results should be interpreted with caution given the possibility of false negative results on decalcified specimens. They have not been cleared by the [place] Food and Drug Administration. The FDA has determined that such clearance or approval is not necessary. CPT Codes 08201, 76263, 87498 Specimen: [id number] Received: 01/05/22 Status: QUOC Garber Num: [id number] Spec Type: Surgical Subm Dr: Rodney Lema MD Tissues: A Skin-Other than Cyst, tag, debridement or plastic repair (SCALP) Procedures: HE Stain/5, Gross/Micro L4 Patient: Sherly Astudillo [id number] (Continued) Signed (signature on file) Debora Renzo (more content not included)... [facility] Cytology Cervical or vaginal smear or scraping studyon 12-26-2019 [facility] Vital Signs Date Time Vital Sign Value Performing Clinician Facility 12-11-2024 13:39-0400 Body mass index (BMI) [Ratio] 45.53 kg/m2 [employer] Work Phone: [facility] 12-11-2024 13:39-0400 Body weight 131.86 kg [employer] Work Phone: [facility] 12-11-2024 13:39-0400 Diastolic blood pressure 78 mm[Hg] [employer] Work Phone: [facility] 12-11-2024 13:39-0400 Systolic blood pressure 126 mm[Hg] [employer] Work Phone: [facility] 12-04-2024 09:01-0400 Body mass index (BMI) [Ratio] 44.95 kg/m2 Emily TALBERT Work Phone: [facility] 12-04-2024 09:01-0400 Body weight 130.18 kg Emily TALBERT Work Phone: [facility] 12-04-2024 09:01-0400 Diastolic blood pressure 86 mm[Hg] Emily TALBERT Work Phone: [facility] 12-04-2024 09:01-0400 Systolic blood pressure 130 mm[Hg] Emily TALBERT Work Phone: [facility] 11-22-2024 12:01-0400 Body height 170.2 cm Ahmet Soler MD Work Phone: [facility] 11-22-2024 12:01-0400 Body mass index (BMI) [Ratio] 45.11 kg/m2 Ahmet Soler MD Work Phone: [facility] 11-22-2024 12:01-0400 Body weight 130.64 kg Ahmet Soler MD Work Phone: [facility] 11-22-2024 12:01-0400 Diastolic blood pressure 80 mm[Hg] Ahmet Soler MD Work Phone: [facility] 11-22-2024 12:01-0400 Heart rate 90 /min Ahmet Soler MD Work Phone: [facility] 11-22-2024 12:01-0400 Systolic blood pressure 115 mm[Hg] Ahmet Soler MD Work Phone: [facility] 11-20-2024 08:32-0400 Body mass index (BMI) [Ratio] 44.64 kg/m2 Cole Celeste DO Work Phone: [facility] 11-20-2024 08:32-0400 Body weight 129.28 kg Cole Celeste DO Work Phone: [facility] 11-20-2024 08:32-0400 Diastolic blood pressure 90 mm[Hg] Cole Celeste DO Work Phone: [facility] Comment on above: 118/86 second BP 11-20-2024 08:32-0400 Systolic blood pressure 136 mm[Hg] Cole Celeste DO Work Phone: [facility] Comment on above: 118/86 second BP 11-06-2024 08:46-0500 Body mass index (BMI) [Ratio] 44.01 kg/m2 Emily TALBERT Work Phone: [facility] 11-06-2024 08:46-0500 Body weight 127.46 kg Emily TALBERT Work Phone: [facility] 11-06-2024 08:46-0500 Diastolic blood pressure 76 mm[Hg] Emily [place] PA Work Phone: [facility] 11-06-2024 08:46-0500 Systolic blood pressure 128 mm[Hg] Emily [place] PA Work Phone: [facility] 10-22-2024 14:46-0500 Body mass index (BMI) [Ratio] 43.04 kg/m2 Cole Celeste DO Work Phone: [facility] 10-22-2024 14:46-0500 Body weight 124.65 kg Cole Celeste DO Work Phone: [facility] 10-22-2024 14:46-0500 Diastolic blood pressure 70 mm[Hg] Cole Celeste DO Work Phone: [facility] 10-22-2024 14:46-0500 Systolic blood pressure 116 mm[Hg] Cole Celeste DO Work Phone: [facility] 10-08-2024 13:57-0500 Body mass index (BMI) [Ratio] 42.15 kg/m2 Emily Favian PA Work Phone: [facility] 10-08-2024 13:57-0500 Body weight 122.07 kg Emily [place] PA Work Phone: [facility] 10-08-2024 13:57-0500 Diastolic blood pressure 82 mm[Hg] Emily Favian PA Work Phone: [facility] 10-08-2024 13:57-0500 Systolic blood pressure 122 mm[Hg] Emily Favian PA Work Phone: [facility] 09-10-2024 14:35-0500 Body mass index (BMI) [Ratio] 40.94 kg/m2 Cole Celeste DO Work Phone: [facility] 09-10-2024 14:35-0500 Body weight 118.57 kg Cole Celeste DO Work Phone: [facility] 09-10-2024 14:35-0500 Diastolic blood pressure 76 mm[Hg] Cole Celeste DO Work Phone: [facility] 09-10-2024 14:35-0500 Systolic blood pressure 118 mm[Hg] Cole Celeste DO Work Phone: [facility] 08-08-2024 11:09-0500 Body mass index (BMI) [Ratio] 39.37 kg/m2 Cole Celeste DO Work Phone: [facility] 08-08-2024 11:09-0500 Body weight 114.03 kg Cole Celeste DO Work Phone: [facility] 08-08-2024 11:09-0500 Diastolic blood pressure 72 mm[Hg] Cole Celeste DO Work Phone: [facility] 08-08-2024 11:09-0500 Systolic blood pressure 120 mm[Hg] Cole Celeste DO Work Phone: [facility] 07-10-2024 10:45-0500 Body mass index (BMI) [Ratio] 38.37 kg/m2 Cole Celeste DO Work Phone: [facility] 07-10-2024 10:45-0500 Body weight 111.13 kg Cole Celeste DO Work Phone: [facility] 07-10-2024 10:45-0500 Diastolic blood pressure 74 mm[Hg] Cole Celeste DO Work Phone: [facility] 07-10-2024 10:45-0500 Systolic blood pressure 118 mm[Hg] Cole Celeste DO Work Phone: [facility] 06-07-2024 13:09-0400 Body mass index (BMI) [Ratio] 38.53 kg/m2 [facility] 06-07-2024 13:09-0400 Body weight 111.58 kg [facility] Nurse [facility] 06-07-2024 13:09-0400 Diastolic blood pressure 72 mm[Hg] [facility] Nurse [facility] 06-07-2024 13:09-0400 Systolic blood pressure 116 mm[Hg] [facility] Nurse [facility] 05-08-2024 11:32-0400 Body height 170.2 cm Cole Celeste DO Work Phone: [facility] 05-08-2024 11:32-0400 Body mass index (BMI) [Ratio] 39.16 kg/m2 Cole Celeste DO Work Phone: [facility] 05-08-2024 11:32-0400 Body weight 113.4 kg Cole Celeste DO Work Phone: [facility] 05-08-2024 11:32-0400 Diastolic blood pressure 80 mm[Hg] Cole Celeste DO Work Phone: [facility] 05-08-2024 11:32-0400 Systolic blood pressure 124 mm[Hg] Cole Celeste DO Work Phone: [facility] 10-06-2023 08:53-0500 Body height 170.2 cm Cole Celeste DO Work Phone: [facility] 10-06-2023 08:53-0500 Body mass index (BMI) [Ratio] 38.28 kg/m2 Cole Celeste DO Work Phone: [facility] 10-06-2023 08:53-0500 Body weight 110.86 kg Cole Celeste DO Work Phone: [facility] 10-06-2023 08:53-0500 Diastolic blood pressure 72 mm[Hg] Cole Celeste DO Work Phone: [facility] 10-06-2023 08:53-0500 Systolic blood pressure 120 mm[Hg] Cole Celeste DO Work Phone: [facility] Healthcare Encounters Encounter Date Encounter Type Care Provider Facility Start: 12-11-2024 End: 12-11-2024 Bamboo flowsheet Cole Celeste DO Work Phone: [facility] Start: 12-11-2024 End: 12-11-2024 Bamboo flowsheet Cole Celeste DO Work Phone: [facility] Start: 12-11-2024 End: 12-11-2024 Office outpatient visit 15 minutes Cole Celeste DO Work Phone: [facility] Comment on above: Third trimester preg maicol; 35 weeks gestation of Start: 12-11-2024 End: 12-11-2024 ambulatory [facility] Not Available Start: 12-10-2024 End: 12-10-2024 Clinisync Result Encounter Cole Celeste DO Work Phone: [facility] External Department Unsolicited Start: 12-10-2024 End: 12-10-2024 Clinisync Result Encounter Cole Celeste DO Work Phone: [facility] External Department Unsolicited Start: 12-04-2024 End: 12-04-2024 Bamboo flowsheet Emily TALBERT Work Phone: [facility] Start: 12-04-2024 End: 12-04-2024 Bamboo flowsheet Emily TALBERT Work Phone: [facility] Start: 12-04-2024 End: 12-04-2024 Office outpatient visit 15 minutes Emily TALBERT Work Phone: [facility] Comment on above: Third [...] Department Unsolicited Start: 12-03-2024 End: 12-03-2024 ambulatory [facility] Start: 11-26-2024 End: 11-26-2024 Clinisync Result Encounter Cole Celeste DO Work Phone: [facility] External Department Unsolicited Start: 11-26-2024 End: 11-26-2024 Clinisync Result Encounter Cole Celeste DO Work Phone: [facility] External Department Unsolicited Start: 11-22-2024 End: 11-22-2024 Office consultation new/estab patient 60 min Bandar Darden MD Work Phone: [facility] Comment on above: Polyhydramnios affec ting in third trimester (Primary Dx); PCOS (polycystic ovarian syndrome) Start: 11-22-2024 End: 11-22-2024 ambulatory [facility] Start: 11-20-2024 End: 11-20-2024 Office [...] EMILY LUNDY Not Available Start: 10-25-2024 ambulatory Kulwant Jason Facility: [facility] Start: 10-24-2024 End: 10-24-2024 Clinisync Result Encounter Emily TALBERT Work Phone: [facility] External Department Unsolicited Start: 10-24-2024 End: 10-24-2024 Clinisync Result Encounter Emily TALBERT Work Phone: [facility] External Department Unsolicited Start: 10-24-2024 End: 10-24-2024 ambulatory [facility] Start: 10-22-2024 End: 10-22-2024 Office outpatient [...] [facility] Start: 10-18-2024 End: 10-18-2024 ambulatory [facility] Start: 10-15-2024 End: 10-15-2024 Chart abstracting Scanning Provider External [facility] Start: 10-08-2024 End: 10-08-2024 Bamboo flowsheet [...] EMILY LUNDY Not Available Start: 10-06-2024 ambulatory [facility] Start: 09-24-2024 ambulatory [facility] Facility: [facility] Start: 09-10-2024 End: 09-10-2024 Clinisync Result [...] Not Available Start: 09-10-2024 End: 09-10-2024 ambulatory COLE CELESTE Not Available Start: 08-10-2024 End: 08-10-2024 Clinisync [...] Bamboo flowsheet Cole Celeste DO Work Phone: [facility] Start: 07-10-2024 End: 07-10-2024 [...] Start: 07-05-2024 End: 07-05-2024 ambulatory Radha Gomez Facility:[facility] Start: 07-04-2024 End: 07-04-2024 Clinisync Result Encounter Cole Celeste DO Work Phone: [facility] Unsolicited Start: 07-04-2024 End: 07-04-2024 Clinisync Result Encounter Cole Celeste DO Work Phone: [facility] Unsolicited Start: 06-07-2024 End: 06-07-2024 ambulatory [facility] Celeste Nurse [facility] Comment on above: GA: 8w6d Start: 06-01-2024 End: 06-01-2024 ambulatory Radha Santo Jason Facility:[facility] Start: 05-28-2024 End: 05-28-2024 Emergency department patient visit Kul[facility] Facility:[facility] Start: 05-28-2024 End: 05-28-2024 ambulatory [facility] Facility:[facility] Start: 05-08-2024 End: 05-08-2024 Bamboo flowsheet [...] encounter procedure Kenya Richter DDS Work Phone: [facility] Comment on above: Abnormal tooth erupt ion (Primary Dx); Impacted third molar tooth Start: 04-24-2024 ambulatory KENYA RICHTER Facili ty:[facility] Start: 03-14-2024 End: 03-14-2024 ambulatory [facility] Facility:[facility] Start: 02-14-2024 End: 02-14-2024 ambulatory [facility] Facility:[facility] Start: 01-17-2024 End: 01-17-2024 ambulatory [facility] Facility:[facility] Start: 12-16-2023 End: 12-16-2023 ambulatory [facility] Facility:[facility] Start: 10-06-2023 End: 10-06-2023 Office outpatient new 20 minutes Cole Celeste DO Work Phone: [facility] Comment on above: Irregular periods/me nstrual cycles; PCOS (polycystic ovarian syndrome); Insulin resistance Procedures Date Procedure Procedure Detail Performing Clinician Start: 12-11-2024 Urnls dip stick/tabl et rgnt non-auto w/o micrscp Cole Celeste DO Work Phone: Start: 12-10-2024 US OB BPP W NON-STRESS Cole Celeste DO Work Phone: Start: 12-03-2024 US OB BPP W NON-STRESS [...] Td Vaccines (9 - Td or Tdap) [facility] Start: 08-08-2027 Screening for malign ant neoplasm of cervix Pap Smear [facility] Start: 11-22-2025 Adult BMI Screening Adult BMI Screen ing [facility] Start: 11-22-2025 Tobacco Screening Tobacco Screening [facility] Start: 05-06-2025 Influenza vaccination Influenz a Vaccine (Season Ended) [facility] Start: 12-26-2024 End: 12-26-2024 Professional / ancillary services management 12/26/2024 11:30 AM EDT Ancillary Procedure [facility] [address] [place] [phone] [facility] Start: 12-18-2024 End: 12-18-2024 Patient encounter procedure 12/18/2024 1:30 PM EDT Routine [facility] [address] [place] [address] Cole Alonso, [address] [place] [address] [facility] Start: 12-11-2024 End: 12-11-2024 Patient encounter procedure [facility] Comment on above: Arrived Start: 12-04-2024 End: 12-04-2025 US for US OB follow up transabdominal approach Imaging Routine Gestational diabetes mellitus (GDM) affecting Expected: 12/04/2024, Expires: 12/04/2025 [facility] Work Phone: Comment on above: Expected: 12/04/2024 , Expires: 12/04/2025 Start: 12-04-2024 End: 12-04-2024 Patient encounter procedure [facility] Comment on above: Arrived Start: 11-20-2024 End: 11-20-2024 Patient encounter procedure 11/20/2024 8:30 AM EDT Routine [facility] [address] [place] [phone] Cole Alonso, [address] [place] [address] [facility] Start: 11-06-2024 End: 11-06-2025 Measurement of glucose 1 hour after glucose challenge for glucose tolerance test Glucose tolerance, 1 hour Lab Routine Diabetes mellitus screening Expected: 11/06/2024 (Approximate), Expires: 11/06/2025 [facility] Comment on above: Expected: 11/06/2024 [...] unspecified fetus Expected: 10/22/2024 (Approximate), Expires: 10/22/2025 [facility] Work Phone: Comment on above: Expected: 10/22/2024 (Approximate), Expires: 10/22/2025 Start: 10-18-2024 End: 10-18-2024 Patient encounter procedure 10/18/2024 1:00 PM EST Appointment [facility] [place] [address] [facility] [address] [place] [address] [facility] [place] Start: 10-08-2024 End: 10-08-2025 CBC panel - [...] mellitus screening Expected: 10/08/2024 (Approximate), Expires: 10/08/2025 [facility] Comment on above: Expected: 10/08/2024 (Approximate), Expires: 10/08/2025 Start: 10-08-2024 End: 10-08-2024 Patient encounter procedure [facility] Comment on above: Arrived Start: 09-10-2024 End: 09-10-2025 Drugs of abuse panel - Urine by Screen method Rapid drug screen, urine Lab Routine , unspecified gestational age Encounter for supervision of normal first in first trimester Expected: 09/10/2024 (Approximate), Expires: 09/10/2025 [facility] Work Phone: Comment on above: Expected: 09/10/2024 (Approximate), Expires: 09/10/2025 Start: 09-10-2024 End: 09-10-2024 Patient encounter procedure 09/10/2024 2:00 PM EST Routine [facility] [address] [facility] [place] [phone] Cole Alonso, [address] [place] [address] [facility] Start: 09-10-2024 End: 09-10-2024 Professional / ancillary services management 09/10/2024 1:00 PM EST Ancillary Procedure [facility] [address] [place] [phone] [facility] Start: 08-08-2024 End: 02-06-2025 Alpha fetoprotein, maternal Alpha fetoprotein, maternal Lab Routine Second trimester 17 weeks gestation of Expected: 08/08/2024 (Approximate), Expires: 02/06/2025 [facility] Comment on above: Expected: 08/08/2024 [...] anatomic survey Expected: 08/08/2024 (Approximate), Expires: 08/08/2025 [facility] Comment on above: Expected: 08/08/2024 (Approximate), Expires: 08/08/2025 Start: 08-08-2024 End: 08-08-2024 Patient encounter procedure [facility] Comment on above: Arrived Start: 07-10-2024 End: 07-10-2025 Measurement of glucose 1 hour after glucose challenge for glucose tolerance test Glucose tolerance, 1 hour Lab Routine Diabetes mellitus screening Expected: 07/10/2024 (Approximate), Expires: 07/10/2025 [facility] Work Phone: Comment on above: Expected: 07/10/2024 (Approximate), Expires: 07/10/2025 Start: 07-10-2024 End: 07-10-2024 Patient encounter procedure [facility] Comment on above: Arrived Start: 07-04-2024 End: 07-04-2024 Patient encounter procedure 07/04/2024 3:00 PM EDT Office Visit [facility] [address] [place] [id number] Kenya Richter, DDS [address] [place] [address] [facility] Start: 06-07-2024 End: 06-07-2025 ABO/Rh ABO/Rh Lab Routine Missed menses , unspecified gestational age Expected: 06/07/2024 (Approximate), Expires: 06/07/2025 [facility] Comment on above: Expected: 06/07/2024 (Approximate), Expires: 06/07/2025 Start: 06-07-2024 End: 06-07-2025 Blood type and Indirect antibody screen panel - Blood Type and screen Lab Routine Missed menses , unspecified gestational age Expected: 06/07/2024 (Approximate), Expires: 06/07/2025 [facility] Work Phone: Comment on above: Expected: 06/07/2024 (Approximate), Expires: 06/07/2025 Start: 06-07-2024 End: 06-07-2025 Drugs of abuse panel - Urine by Screen method Rapid drug screen, urine Lab Routine , unspecified gestational age Encounter for supervision of normal first in first trimester Expected: 06/07/2024 (Approximate), Expires: 06/07/2025 [facility] Comment on above: Expected: 06/07/2024 (Approximate), Expires: 06/07/2025 Start: 06-07-2024 End: 06-07-2025 US Pelvis transvaginal US OB transvaginal Imaging Routine Missed menses Expected: 06/07/2024 (Approximate), Expires: 06/07/2025 [facility] Comment on above: Expected: 06/07/2024 (Approximate), Expires: 06/07/2025 Start: 06-07-2024 End: 06-07-2024 ambulatory 06/07/2024 1:00 PM EDT Initial [facility] [address] [place] [phone] [facility] Start: 06-07-2024 End: 06-07-2024 Professional / ancillary services management 06/07/2024 12:30 PM EDT Ancillary Procedure [facility] [place] [phone] [facility] Start: 06-05-2024 Influenza vaccination Influenza Vacc ine (#1) [facility] Start: 05-08-2024 End: 05-08-2024 Patient encounter procedure 05/08/2024 11:20 AM EDT Office Visit [facility] [address] [facility] [place] [address] Cole Alonso, [address] [place] [address] Arrived [facility] Comment on above: Arrived Start: 05-06-2024 Influenza vaccination [facility] Start: 11-03-2023 End: 11-03-2023 Patient encounter procedure 11/03/2023 8:30 AM EST Office Visit [facility] [address] [facility] [place] [phone] Cole Alonso, [address] [place] [address] [facility] Start: 10-17-2023 End: 10-17-2023 Professional / ancillary services management 10/17/2023 8:30 AM EST Ancillary Procedure [facility] [address] [facility] [place] [phone] [facility] Start: 05-06-2023 COVID-19 Vaccine ( season) COVID-19 Vaccine ( season) [facility] Start: 2019 Screening for malign ant neoplasm of cervix [facility] Start: 2017 DTaP,Tdap and Td Vaccines (1 - Tdap) DTaP,Tdap and Td Vaccines (1 - Tdap) [facility] Start: 2017 Hepatitis A (HAV) Vaccine (optional start 19+ years) Hepatitis A (HAV) Vaccine (optional start 19+ years) [facility] Start: 2017 Hepatitis B vaccination Hepati tis B (HBV) Vaccine (1 of 3 - 19+ 3-dose series) [facility] Start: 2016 Adult BMI Follow Up Plan Adult BMI F ollow Up Plan [facility] Start: 2016 Adult BMI Screening Adult BMI Screen ing [facility] Start: 2016 Hepatitis C screening Hepatitis C An tibody [facility] Start: 2016 Tetanus + diphtheria + acellular pertussis vaccine (product) Tdap [facility]oster [facility] Start: 2013 Vaccination for volodymyr n papillomavirus HPV Vaccine (1 - 3-dose series) [facility] Start: 2010 Depression Screening Depression Scre ening [facility] Start: 2010 Tobacco Screening Tobacco Screening [facility] Antimullerian hormon e (AMH) Antimullerian hormone (AMH) Lab Routine Irregular periods/menstrual cycles Ordered: 10/06/2023 [facility] Comment on above: Ordered: 10/06/2023 Bacteria identified in Urine by Culture Urine culture Microbiology Routine Missed menses Ordered: 06/07/2024 [facility] Comment on above: Ordered: 06/07/2024 CBC W Auto Different ial panel - Blood CBC and differential Lab Routine PCOS (polycystic ovarian syndrome) Ordered: 10/06/2023 [facility] Comment on above: Ordered: 10/06/2023 CBC W Auto Different ial panel - Blood CBC and differential Lab Routine Missed menses , unspecified gestational age Ordered: 06/07/2024 [facility] Comment on above: Ordered: 06/07/2024 CHLAMYDIA TRACHOMATI S (GENITO/STI) CHLAMYDIA TRACHOMATIS (GENITO/STI) Lab Routine STD exposure Ordered: 08/08/2024 [facility] Comment on above: Ordered: 08/08/2024 Cytology Cervical or vaginal smear or scraping study Pap Smear Pathology and Cytology Routine Well woman exam with routine gynecological exam Ordered: 08/08/2024 [facility] Comment on above: Ordered: 08/08/2024 DHEA DHEA Lab Routine PCOS (polycystic ovarian syndrome) Ordered: 10/06/2023 [facility] Comment on above: Ordered: 10/06/2023 DHEA-sulfate DHEA-sulfate Lab Routine PCOS (polycystic ovarian syndrome) Ordered: 10/06/2023 [facility] Comment on above: Ordered: 10/06/2023 Follicle stimulating hormone Follicle stimulating hormone Lab Routine PCOS (polycystic ovarian syndrome) Ordered: 10/06/2023 [facility] Comment on above: Ordered: 10/06/2023 hCG, quantitative, hCG, quantitative, Lab Routine PCOS (polycystic ovarian syndrome) Ordered: 10/06/2023 [facility] Work Phone: Comment on above: Ordered: 10/06/2023 Hemoglobin A1c measurement Hemoglobin A1c Lab Routine Irregular periods/menstrual cycles Ordered: 10/06/2023 [facility] Comment on above: Ordered: 10/06/2023 Hemoglobin A1c/Hemoglobin.total in Blood Hemoglobin A1c Lab Routine Missed menses , unspecified gestational age Ordered: 06/07/2024 [facility] Comment on above: Ordered: 06/07/2024 Hepatitis B virus surface Ag [Presence] in Serum or Plasma by Immunoassay Hepatitis B surface antigen Lab Routine Missed menses , unspecified gestational age Ordered: 06/07/2024 [facility] Comment on above: Ordered: 06/07/2024 Hepatitis C virus Ab [Presence] in Serum or Plasma by Immunoassay Hepatitis C antibody Lab Routine Missed menses , unspecified gestational age Ordered: 06/07/2024 [facility] Comment on above: Ordered: 06/07/2024 HIV-1/HIV-2 antigen/antibody combination immunoassay HIV-1 and HIV-2 antibodies Lab Routine Missed menses , unspecified gestational age Ordered: 06/07/2024 [facility] Comment on above: Ordered: 06/07/2024 Luteinizing hormone Luteinizing hormone Lab Routine PCOS (polycystic ovarian syndrome) Ordered: 10/06/2023 [facility] Comment on above: Ordered: 10/06/2023 Neisseria gonorrhoea e DNA [Presence] in Unspecified specimen by ISHA with probe detection Neisseria gonorrhea DNA probe, direct Lab Routine STD exposure Ordered: 08/08/2024 [facility] Comment on above: Ordered: 08/08/2024 Reagin Ab [Presence] in Serum by RPR RPR Lab Routine Missed menses , unspecified gestational age Ordered: 06/07/2024 [facility] Comment on above: Ordered: 06/07/2024 Rubella antibody, IgG Rubella an tibody, IgG Lab Routine Missed menses , unspecified gestational age Ordered: 06/07/2024 [facility] Comment on above: Ordered: 06/07/2024 SURESWAB(R) ADVANCED VAGINITIS PLUS, TMA SURESWAB(R) ADVANCED VAGINITIS PLUS, TMA Pathology and Cytology Routine Vaginal discharge Ordered: 08/08/2024 [facility] Work Phone: Comment on above: Ordered: 08/08/2024 Thyrotropin [Units/volume] in Serum or Plasma TSH Lab Routine PCOS (polycystic ovarian syndrome) Ordered: 10/06/2023 [facility] Comment on above: Ordered: 10/06/2023 Thyroxine (T4) free [Mass/volume] in Serum or Plasma T4, free Lab Routine PCOS (polycystic ovarian syndrome) Ordered: 10/06/2023 [facility] Comment on above: Ordered: 10/06/2023 US for US PELVIS-TRANS VAG IF INDICATED Imaging Routine PCOS (polycystic ovarian syndrome) Ordered: 10/06/2023 [facility] Comment on above: Ordered: 10/06/2023 Immunizations Immunization Date Immunization Notes Care Provider Shaina marley 06-12-2020 influenza virus vacc ine, unspecified formulation Cole Alonso DO Work Phone: [facility] Payers Date Payer Category Payer [employer] Indemnity JAISON [id number] 2022 Medicaid [id number] 2022 Medicaid [id number] 1998 Unknown [id number] 2.16840.1.922061.3.579.2. 732 1998 Unknown [id number] 2.16840.1.396489.3.579.2. 1286 1998 Unknown [id number] 2.16840.1.013983.3.579.2. 1286 1998 Unknown [id number] 2.16.840.1.147680.3.579.2. 6 1998 Unknown [id number] 2.16.840.1.769620.3.579.2. 1998 Unknown [id number] 2.16.840.1.505947.3.579.2. 1998 Unknown [id number] 2.16.840.1.393893.3.579.2. 1998 Unknown [id number] 2.16.840.1.278028.3.579.2. 1998 Unknown [id number] 2.16.840.1.905891.3.579.2. 1998 Unknown [id number] 2.16.840.1.494402.3.579.2. 1998 Unknown [id number] 2.16.840.1.406689.3.579.2. 1998 Unknown [id number] 2.16.840.1.327706.3.579.2. 1998 Unknown [id number] 2.16.840.1.797621.3.579.2. 1998 Unknown [id number] 2.16.840.1.728920.3.579.2. 1998 Unknown [id number] 2.16.840.1.243425.3.579.2. 1998 Unknown [id number] 2.16.840.1.612135.3.579.2. 1258 1998 Unknown [id number] 2.16.840.1.876676.3.579.2. 1258 1998 Unknown [id number] 2.16.840.1.543555.3.579.2. 1258 1998 Unknown [id number] 2.16.840.1.371102.3.579.2. 1258 1998 Unknown [id number] 2.16.840.1.443743.3.579.2. 9 1998 Unknown [id number] 2.16.840.1.651476.3.579.2. 9 1998 Unknown [id number] 2.16.840.1.436471.3.579.2. 9 1998 Unknown [id number] 2.16.840.1.320642.3.579.2. 9 1998 Unknown [id number] 2.16.840.1.993861.3.579.2. 9 1998 Unknown [id number] 2.16.840.1.804670.3.579.2. 9 1998 Unknown [id number] 2.16.840.1.970320.3.579.2. 9 1998 Unknown [id number] 2.16.840.1.663919.3.579.2. 9 Social History Date Type Detail Facility Start: 09-15-2023 End: 05-08-2024 Tobacco smoking status [facility] Ex-smoker [facility] History of tobacco use Current smoker [facility] History of tobacco use Cigarette Smoker [facility] Start: 10-06-2023 End: 12-11-2024 Alcohol intake Lifetime non-drinker (finding) [facility] Start: 09-15-2023 End: 05-08-2024 History of Social function [facility] Start: 09-15-2023 End: 05-08-2024 Tobacco use panel [facility] Start: 09-15-2023 Alcohol Comment caffeine: 1-2 cups per day [facility] Start: 2000 Sex Assigned At Not on file [facility] Tobacco smoking stat [facility] Tobacco smoking consumption unknown [facility] Start: 05-08-2024 End: 10-15-2024 Tobacco use and exposure Smokeless tobacco non-user [facility] Start: 04-20-2024 [facility] Start: 10-15-2024 End: 11-22-2024 Alcoholic beverage intake Ex-drinker (finding) [facility] Childcare Unknown [facility] Start: 12-03-2019 Sex Female (finding) [facility] Medical Equipment Procedure Code Equipment Code Equipment Origin al Text Equipment Identifier Dates Check blood gluc ose using test strips fasting and 1 hour after each meal. Four to 5 times a day per insurance preferences [id number] Start: 11-22-2024 Use it to check fingerstick blood glucose 4 times a day fasting and 1 hour after each meal. Dispensed per insurance preference [id number] Start: 11-22-2024 Use as instructed [id number] Start: 12-04-2024 Clinical Notes 10-06-2023 to 12-11-2024 Bailey Xavier LPN - 12/11/2024 1:30 PM NITISH Negrete - 12/04/2024 8:40 AM Brice Aranda CMA - 11/22/2024 11:30 AM JUNIORTAhmet Soler MD - 11/22/2024 11:30 AM EDT Note Date & Type Note Facility 12-11-2024 History of Present illness Narrative Reason for [...] nursing note reviewed. Exam conducted with a archaeology professor present. Vitals: Estimated body mass index is 45.53 kg/m as calculated from the following: Height as of 24: 5' 7 . Weight as of this encounter: 290 lb 11.2 oz. BP: 126/78 Patient's last menstrual period was 04/06/2024. ASSESSMENT & PLAN ICD-10-CM 1. Third trimester Z34.93 POCT urinalysis dipstick manually resulted 2. 35 weeks gestation of Z3A.35 POCT urinalysis dipstick manually resulted Return OB: Patient presents today for a routine obstetrics appointment. Patient is currently 35w4d . Patient states she is doing well but has complaints of being tired due to current . Patient has verbalizes frequent movement. labor precautions was discussed/given and patient was instructed to perform kick counts three times a day. Orders Placed This Encounter Procedures POCT urinalysis dipstick manually resulted Follow Up: Patient is to return to office in 1 week for routine OB appointment. Documented by Bailey Xavier LPN on behalf of: Cole Alonso DO documented in this encounter [facility] 12-04-2024 History of Present illness Narrative Reason [...] three times a day. Patient had seen [facility] and blood sugars are elevating. Today sugars [...] by NITISH Rojas on behalf of: NITISH Rjoas documented in this encounter [facility] 12-03-2024 Note [facility] Note Reason for cardiology visit: Follow-up HPI: 12/03/2024 Patient is here today for follow-up visit. She reports that she has been doing better. She denies chest pain or shortness of breath or dizziness or palpitations or legs edema. She is going to be induced January 04, 2025. She again reports snoring, she does not know if she stops breathing during the night, she does not wake up gasping for air, she reports being tired during the daytime. 10/24/2024 Sherly Astudillo is a 24 y.o. female [...] during the . No other illicit drugs ROS: All systems were reviewed and they were negative except for the positive findings noted above in the history Past Medical History She has a past [...] mouth in the morning., Disp: , Rfl: magnesium oxide (Mag-Ox) 400 mg (241.3 mg magnesium) tablet, Take 1 tablet (400 mg) by mouth two times daily., Disp: 180 tablet, Rfl: 3 magnesium oxide (Mag-Ox) 400 mg (241.3 mg magnesium) tablet, Take 400 mg by mouth in the morning., Disp: , Rfl: OneTouch Delica Plus Lancet 30 gauge [facility], , Disp: , Rfl: OneTouch Ultra Test strip, , Disp: , Rfl: OneTouch Ultra2 Meter [facility], , Disp: , Rfl: 0-FZAY-XBBMS ACID-OM3 ORAL, Take by mouth., Disp: , Rfl: metFORMIN (Glucophage) 500 mg tablet, Take 1 tablet by mouth., Disp: , Rfl: Last Recorded Vitals Visit Vitals BP 130/86 (BP Location: Left arm, Patient Position: Sitting) Pulse 100 Ht 1.702 m (5' 7 ) Wt 130 kg (286 lb) SpO2 94% BMI 44.79 kg/m??? OB Status Smoking Status Every Day BSA 2.48 m??? Physical Examination: GENERAL: alert and oriented [...] PSYCH: appropriate mood, affect, and judgement. Labs: 10/24/2024 White blood count 10, hemoglobin 10.5, hematocrit 32.1, platelets 332 Sodium 139, potassium 3.6, BUN 6, creatinine 0.6, GFR above 60, calcium 8.8, magnesium 1.4, TSH 1.183, FT3 2.18 07/04/2024 White blood count 11.8, hemoglobin 13.7, hematocrit 40.3, platelets 378 next line HbA1c 5.2% Last Images: EKG today 10/23/2024 showed normal sinus rhythm with sinus arrhythmia, heart rate 76 bpm, LVH by voltage, no T or ST changes, borderline EKG Echo 11/08/2024 Assessment and Plan: Palpitations associated with lightheadedness and shortness of breath and occasionally chest pain with any activity. Heart rate noted to be as high as 164 bpm Holter monitor showed sinus rhythm with sinus tachycardia with the highest heart rate 165 bpm. Patient did not record any symptoms. Echo was normal. Labs were normal except low magnesium and she was starte (more content not included)... [facility] 11-22-2024 History of Present illness Narrative [...] no Have you been seen here at [facility] in a previous ? No Recent ER visits or hospitalizations? No Bring blood sugar log or meter with you today? (Please bring them with you for every visit at [facility]) no Flu vaccine (Jul-November)? No Any [...] and the other consultants, we search on [employer] and all the available care everywhere epic I did review all the imaging studies of the patient available on EMR, ordered by the primary care physician and the other economics consultant HABITS: Patient activity no restrictions, diet [...] high, please refer the patient back to [facility] for formal diabetes management 5. Continue [...] patient is in complete care of her bingo clerk. Patient does not have appointment scheduled with us. Thank you for allowing me to participate in Sherly Astudillo . If there any questions please do not hesitate to contact us. Sincerely, AHMET SOLER MD Video Visit via Real-time Synchronous Audiovisual Provider Location: [facility]- [facility]ICINE AT [address] [address] Patient Location: Other Patient Location Heart Surgeon: None Video Visit Consent Statement: I discussed [...] that there are some limitations compared to suzy-zb-rwas evaluations. We elected to proceed. documented in this encounter [facility] 11-20-2024 History of Present illness Narrative [...] nursing note reviewed. Exam conducted with a archaeology professor present. Vitals: Estimated body mass index is [...] three times a day. Pt return to [facility] the for follow up anatomy scan. Pt second BP in office was 118/86. No orders of the defined types were placed in this encounter. Follow Up: Patient is to return to office in 2 week for routine OB appointment. Documented by Bailey Xavier LPN on behalf of: Cole Alonso DO documented in this encounter [facility] 11-06-2024 History of Present illness Narrative Reason [...] of: NITISH Rojas documented in this encounter [facility] 10-24-2024 Note [facility] Note Reason for cardiology [...] mouth in the morning., Disp: , Rfl: 4-ACFH-OUWFT ACID-OM3 ORAL, Take by mouth., Disp: , [...] 4 to 6 weeks Angel Luis Evans MD,[facility] 10-22-2024 History of Present illness Narrative [...] nursing note reviewed. Exam conducted with a archaeology professor present. Vitals: Estimated body mass index is [...] NST/BPP to have started. Orders sent to H Scheduling and [facility] Hospital to reach out to patient to schedule. Patient to return to clinic in 2 weeks for routine OIB appointment. Documented by Rose Latham LPN on behalf of: Cole Alonso DO documented in this encounter [facility] 10-08-2024 History of Present illness Narrative Reason for Appointment: Patient ID: Sherly Astudillo is a 24 y.o. female who presents for Routine Visit Patient presents today for Return OB appointment. MEDICATIONS Current Outpatient Medications Medication Instructions clotrimazole (Mycelex) 10 MG jacob 1 lozenge(s), Oral, 5x/Day, x 10 day(s), # 50 lozenge(s), 0 Refill(s), 10/16/24 8:59:00 AM [facility], Pharmacy: [facility] [id number], 1 lozenge(s) Oral 5x/Day,x10 day(s), 170.18, cm, [...] of: NITISH Rojas documented in this encounter [facility] 10-06-2024 Note Patient Education Ma terials Follows: [...] Follow these instructions at home: ? Take ulrn-vfp-kimasqm and prescription medicines only as told by [...] provider. Document Revised: 11/30/2021 Document Reviewed: 11/30/2021 [employer] Patient Education ? 2023 [employer]. Infectious Disease Oral Thrush, Adult Oral thrush, [...] difficulty fighting infection (more content not included)... [facility] 09-24-2024 Note Patient Education Ma terials [...] these instructions at home: Medicines ? Take ncdd-rwo-nscyzbp and prescription medicines only as told by [...] and water are not available, use hand optometry assistant. ? Do not touch your eyes, nose, [...] may represent a (more content not included)... [facility] 09-10-2024 History of Present illness Narrative [...] child Endometriosis Mother Magnolia Renetta Diabetes Mother Magnolai Renetta Depression Father Hypertension Father Diabetes Maternal [...] nursing note reviewed. Exam conducted with a archaeology professor present. Vitals: Estimated body mass index is [...] Cole Alonso DO documented in this encounter [facility] 08-08-2024 History of Present illness Narrative Reason [...] Cole Alonso DO documented in this encounter [facility] 07-10-2024 History of Present illness Narrative Reason [...] nursing note reviewed. Exam conducted with a archaeology professor present. Vitals: Estimated body mass index is [...] or undercooked meat, and stay away from [facility]. Patient has been consulted regarding any [...] Cole Alonso DO documented in this encounter [facility] 07-05-2024 Note Patient Education Ma terials Follows:and [...] and use condoms. General instructions ? Take ramy-lkf-yvwsske and prescription medicines only as told by [...] provider. Document Revised: 02/19/2021 Document Reviewed: 02/19/2021 [employer] Patient Education ? 2023 [employer]. [facility] 06-07-2024 History of Present illness Narrative [...] both done at the same time at [facility] at 10 weeks . Pt desires zofran due to nausea in this . Follow Up: Patient is to have labs drawn at directed and return to office for initial OB appointment with provider. Patient may call office as needed with any concerns or questions. Nurse Visit Completed by: Bernadette Reeder MA documented in this encounter [facility] 05-28-2024 Note Education Materials Orthopedics Muscle Strain [...] not too tight. General instructions ? Take yhfk-aoi-rpyqipm and prescription medicines only as told by [...] provider. Document Revised: 11/09/2021 Document Reviewed: 11/09/2021 [employer] Patient Education ? 2023 [employer]. Sciatica Sciatica is pain, weakness, tingling, or [...] (pelvis). ? . (more content not included)... [facility] 05-28-2024 Note Patient Education Ma terials Follows: [facility] 05-08-2024 History of Present illness Narrative [...] Cole Alonso DO documented in this encounter [facility] 04-24-2024 History of Present illness Narrative Images from the original note were not included. documented in this encounter [facility] 10-06-2023 History of Present illness Narrative [...] nursing note reviewed. Exam conducted with a archaeology professor present. Vitals: Estimated body mass index is [...] PCOS/insulin resistance and medication was sent to [facility] in [place]. Documented by Rose Latham LPN on behalf of: Cole Alonso DO documented in this encounter [facility] Healthcare Evaluation note Diagnosis Irregular periods/menstrual cycles [...] or unspecified fetus documented in this encounter [facility] HealthcareEvaluation note* Diagnosis Third trimester state, incidental 30 weeks gestation of Excessive growth affecting management of in third trimester, single or unspecified fetus Diabetes mellitus screening Screening for diabetes mellitus documented in this encounter [facility] HealthcareEvaluation note* Diagnosis Polyhydramnios affecting in third trimester- Primary PCOS (polycystic ovarian syndrome) Polycystic ovaries [facility]* Diagnosis Third trimester state, incidental 32 weeks gestation of documented in this encounter [facility] HealthcareEvaluation note* Diagnosis Third trimester state, incidental 34 weeks gestation of Gestational diabetes mellitus (GDM) affecting Gestational diabetes mellitus (GDM), antepartum, gestational diabetes method of control unspecified documented in this encounter [facility] HealthcareEvaluation note* Diagnosis Third trimester state, incidental 35 weeks gestation of documented in this encounter [facility] HealthcareInstructionsNot on filedocumented in this encounterProSalem [facility] SystemInstructionsNot on filedocumented in this encounterOhio[facility] Summary Purpose Family History No [...] third molar tooth Kenya Richter, DDS [address] [place] [address] Referral ID Status Reason Start Date Expiration Date V isits Requested Visits Authorized [id number] Pending Review 04/24/2024 04/24/2025 1 1 Scheduling [...] your procedure, you will be contacted with [id number] costs or next steps. All self-pay payments [...] the procedure: You also MUST have a solid waste truck driver/escort >18yrs old present to take [...] section and content) DATE CREATED AUTHOR 01/08/2022 [facility] DATE CREATED AUTHOR AUTHOR'S ORGANIZ ATION 09/23/2024 [facility] DATE CREATED AUTHOR AUTHOR'S ORGANIZ ATION 11/24/2024 [facility] DATE CREATED AUTHOR AUTHOR'S ORGANIZ ATION 11/24/2024 [facility] DATE CREATED AUTHOR AUTHOR'S ORGANIZ ATION 12/11/2024 [facility] DATE CREATED AUTHOR AUTHOR'S ORGANIZ ATION 12/12/2024 [facility] DATE CREATED AUTHOR AUTHOR'S ORGANIZ ATION 12/12/2024 [facility] EPIC Reason for Visit (unrecogniz ed section and content) Reason Comments Discuss cycles Reason Comments Amenorrhea Reason Comments Routine Visit Reason Comments Well Women Visit Routine Visit STI Screening Reason Comments Abdominal Pain Reason Comments polyhydramnios Reason Comments Routine Visit Care Teams (unrecognized sec tion and content) Chemist Physical Relationship Specialty Start Date End Date Radha Gomez MD [address] [place] [address] [id number] PCP - General Pediatrics 10/06/23 Chemist Physical Relationship Specialty Start Date End Date Radha Gomez MD [address] [place] [address] [phone] PCP - General Pediatrics 10/06/23 Chemist Physical Relationship Specialty Start Date End Date Radha Gomez MD [address] [place] [address] [id number] PCP - General Pediatrics 10/06/23 Chemist Physical Relationship Specialty Start Date End Date Radha Gomez MD [address] [place] [address] [id number] PCP - General Pediatrics 10/06/23 Chemist Physical Relationship Specialty Start Date End Date Radha Gomez MD [address] [place] [address] [id number] PCP - General Pediatrics 10/06/23 Chemist Physical Relationship Specialty Start Date End Date Radha Gomez MD [address] [place] [address] [phone] PCP - General Pediatrics 10/06/23 Chemist Physical Relationship Specialty Start Date End Date Radha Gomez MD [address] [place] [address] [id number] PCP - General Pediatrics 10/06/23 Chemist Physical Relationship Specialty Start Date End Date Radha Gomez MD [address] [place] [address] [id number] PCP - General Pediatrics 10/06/23 Chemist Physical Relationship Specialty Start Date End Date Radha Gomez MD [address] [place] [address] [id number] PCP - General Pediatrics 10/06/23 Chemist Physical Relationship Specialty Start Date End Date Radha Gomez MD [address] [place] [address] [id number] PCP - General Pediatrics 10/06/23 Chemist Physical Relationship Specialty Start Date End Date Radha Gomez MD [address] [place] [address] [id number] PCP - General Pediatrics 10/06/23 Chemist Physical Relationship Specialty Start Date End Date Radha Gomez MD [address] [place] [address] [phone] PCP - General Pediatrics 10/06/23 Chemist Physical Relationship Specialty Start Date End Date Radha Gomez MD [address] [place] [address] [phone] PCP - General Pediatrics 10/06/23 Chemist Physical Relationship Specialty Start Date End Date Radha Gomez MD [address] [place] [address] [phone] PCP - General Pediatrics 10/06/23 Chemist Physical Relationship Specialty Start Date End Date Radha Gomez MD [address] [place] [address] [phone] PCP - General Pediatrics 10/06/23 FOR RECORDS [...] BE BASED ON THE PRIMARY CLINICAL RECORDS. [facility]. provides no warranty or guarantee of the accuracy or completeness of information in this document.
== END 2024-12-13 10:45 | disposition home or self-care (01) ==
LOC: FBCO 09:56 → FBC 09:58
PROVIDERS: PCP Family Medicine; Visit Provider Obstetrics & Gynecology
DX: O36.63X0 Maternal care for excessive fetal growth, third trimester, not applicable or unspecified (principal)
CPT/HCPCS: 59025

== ENCOUNTER 2024-12-17 11:01 | Outpatient (OUT) | payer MEDICAID, SELFPAY ==
--- OUTSIDE RECORDS SUMMARY | 2024-12-17 11:05 | XMS_ITS | CCD ---
Author Organization [facility] Care Team Providers Care Residential Installer Name Role Phone Radha Gomez MD Primary [...] Propensity to adverse reactions to drug (disorder) [facility] Repository Medications Current Medications Medication Drug [...] 50 lozenge(s), 0 Refill(s), 10/16/24 8:59:00 AM MANAGER APPOINTMENT, Pharmacy: [facility] [id number], 1 lozenge(s) Oral 5x/Day,x10 day(s), 170.18, cm, [...] Range Facility Outside Recordson 12-11-2024 Outside Records [id number] [facility] [id number]#1.0 [facility] macro (dipstick) panel (U)on 12-11-2024 Bilirubin, UA Negative Negative - 4(70) +++ mg/dL [facility] Blood, UA Negative Negative - 50 Osvaldo/mcL [facility] Clarity, UA Clear [facility] Color, UA Yellow [facility] Glucose, UA Negative Negative - 1999(110) ++++ mg/dL [facility] Interpretation and review of laboratory results Normal [facility] Ketones, UA Negative Negative - 160(16) ++++ mg/dL [facility] Leukocytes, UA Negative Negative - 500+++ Edison/mcL [facility] Nitrite, UA Negative Negative - Positive [facility] pH, UA 6 5 - 9 [facility] Protein, UA Negative Negative - 1999(20) ++++ mg/dL [facility] Spec Grav, UA 1.025 1 - 1.03 [facility] Urobilinogen, UA 1.0 0.2 - 12 mg/dL [facility] US OB BPP W NON-STRESS on 12-10-2024 [place] [address] Ultrasound Report Signed Patient: SHERLY ASTUDILLO MR#: [id number] : 2000 Acct:[id number] Age/Sex: 24 / F ADM Date: 12/10/24 Loc: US Attending Dr: Cole Alonso D.O. Ordering Physician: Cole Alonso D.O. Date of Service: 12/10/24 Procedure(s): US OB BPP w non-stress Accession Number(s): [id number] cc: RADHA GOMEZ ; Cole Alonso D.O. [place] [address] Patient Name: SHERLY ASTUDILLO MRN: [facility]:[id number] date: 2000 Sex: F Assigned Patient Location: Current Patient Location: Accession/Order Number: [id number] Exam Date: 12/10/2024 13:07 Report Date: 12/10/2024 13:08 At the request of: COLE ALONSO DO Procedure: US OB BPP w non-stress Biophysical profile. Reason for exam: Excessive growth. COMPARISON: BPP 11/19/2024. TECHNIQUE: Transabdominal imaging of the gravid uterus was obtained. FINDINGS: Tank Stave Assembler reports a BPP of 8 out of 8. Abnormal JET of 29.8 cm. heart rate 131 bpm. US/US OB BPP w non-stress IMPRESSION: BPP 8 out of 8. Polyhydramnios. Impression dictated by: Alexy Sparks Jr., D.O.12/10/2024 1:08 PM Dictation Location: [place] [address] Electronically authenticated by: [id number] Y Date: 12/10/2024 13:08 Dictated By: Alexy Sparks M.D. Signed By: 12/10/24 1310 DD/ 1308 TD/TT: Server Security Administrator: [facility] Radiology, Radiologi MD juan carlos - 12/10/2024 [place] [address] Ultrasound Report Signed Patient: SHERLY ASTUDILLO MR#: [id number] : 2000 Acct:[id number] Age/Sex: 24 / F ADM Date: 12/10/24 Loc: US Attending Dr: Cole Alonso D.O. Ordering Physician: Cole Alonso D.O. Date of Service: 12/10/24 Procedure(s): US OB BPP w non-stress Accession Number(s): [id number] cc: RADHA GOMEZ ; Cole Alonso D.O. The [place] [address] Patient Name: SHERLY ASTUDILLO MRN: [facility]:[id number] date: 2000 Sex: F Assigned Patient Location: Current Patient Location: Accession/Order Number: [id number] Exam Date: 12/10/2024 13:07 Report Date: 12/10/2024 13:08 At the request of: COLE ALONSO DO Procedure: US OB BPP w non-stress Biophysical profile. Reason for exam: Excessive growth. COMPARISON: BPP 11/19/2024. TECHNIQUE: Transabdominal imaging of the gravid uterus was obtained. FINDINGS: Tank Stave Assembler reports a BPP of 8 out of 8. Abnormal JET of 29.8 cm. heart rate 131 bpm. US/US OB BPP w non-stress IMPRESSION: BPP 8 out of 8. Polyhydramnios. Impression dictated by: Alexy Sparks Jr., D.O.12/10/2024 1:08 PM Dictation Location: [place] [address] Electronically authenticated by: [id number] Y Date: 12/10/2024 13:08 Dictated By: Alexy Sparks M.D. Signed By: 12/10/24 1310 DD/ 1308 TD/TT: Server Security Administrator: [facility] Radiology Study observation (narrative) [facility] US OB BPP W NON-STRESS Ordered By: Radiologist Radiology on 12-10-2024 [facility] Work Phone: Outside Recordson 12-05-2024 Outside Records [id number]#1.00O TGTIFF [facility] Office Visiton 12-03-2024 Follow-up visit [id number] Sherly Astudillo 2000 F Date Provider Department Center 12/03/2024 90149-VXSXFIANGEL LUIS EVANS [facility] Family History Problem Relation Age of Onset Diabetes Mother Diabetes Maternal Grandmother Diabetes Maternal Grandfather Family Status - Relation Status Age at Mother Maternal Grandmother Maternal Grandfather Level of Service:70796 [place] OFFICE/OUTPATIENT ESTABLISHED LOW MDM 20 MIN Reason for Visit and Comments: Hypertension [544528] Hyperlipidemia [182] Normal [facility] US OB BPP W NON-STRESS on 12-03-2024 [place] [address] Ultrasound Report Signed Patient: SHERLY ASTUDILLO MR#: [id number] : 2000 Acct:[id number] Age/Sex: 24 / F ADM Date: 12/03/24 Loc: US Attending Dr: Cole Alonso D.O. Ordering Physician: Cole Alonso D.O. Date of Service: 12/03/24 Procedure(s): US OB BPP w non-stress Accession Number(s): [id number] cc: RADHA GOMEZ ; Cole Alonso D.O. The [address] [address] Patient Name: SHERLY ASTUDILLO MRN: [facility]:[id number] date: 2000 Sex: F Assigned Patient Location: [facility] Current Patient Location: Accession/Order Number: [id number] Exam Date: 12/03/2024 14:34 Report Date: 12/03/2024 [...] Robert Hui M.D.12/03/2024 2:36 PM Dictation [facility] Electronically authenticated by: [id number] Y Date: 12/03/2024 14:36 Dictated By: Robert Hui D.O. Signed By: 12/03/24 1438 DD/ 35 TD/TT: Server Security Administrator: [facility] Radiology, Radiologi MD juan carlos - 12/03/2024 The [place] [id number] Ultrasound Report Signed Patient: SHERLY ASTUDILLO MR#: [id number] : 2000 Acct:[id number] Age/Sex: 24 / F ADM Date: 12/03/24 Loc: US Attending Dr: Cole Alonso D.O. Ordering Physician: Cole Alonso D.O. Date of Service: 12/03/24 Procedure(s): US OB BPP w non-stress Accession Number(s): [id number] cc: RADHA GOMEZ ; Cole Alonso D.O. [place] [id number] Patient Name: SHERLY ASTUDILLO MRN: [facility]:[id number] date: 2000 Sex: F Assigned Patient Location: [facility] Current Patient Location: Accession/Order Number: [id number] Exam Date: 12/03/2024 14:34 Report Date: 12/03/2024 [...] Robert Hui M.D.12/03/2024 2:36 PM Dictation Location: [facility] Electronically authenticated by: [id number] Y Date: 12/03/2024 14:36 Dictated By: Robert Hui D.O. Signed By: 12/03/24 1438 DD/ 143 TD/TT: Server Security Administrator: [facility] Radiology Study observation (narrative) [facility] US OB BPP W NON-STRESS Ordered By: Radiologist Radiology on 12-03-2024 [facility] Work Phone: Outside Recordson 11-27-2024 Outside Records [id number]#1.00O [facility] US OB BPP W NON-STRESS on 11-26-2024 [place] [address] Ultrasound Report Signed Patient: SHERLY ASTUDILLO MR#: [id number] : 2000 Acct:[id number] Age/Sex: 24 / F ADM Date: 11/26/24 Loc: US Attending Dr: Cole Alonso D.O. Ordering Physician: Cole Alonso D.O. Date of Service: 11/26/24 Procedure(s): US OB BPP w non-stress Accession Number(s): [id number] cc: RADHA GOMEZ ; Cole Alonso D.O. The [address] [address] Patient Name: SHERLY ASTUDILLO MRN: [facility]:[id number] date: 2000 Sex: F Assigned Patient Location: US Current Patient Location: Accession/Order Number: [id number] Exam Date: 11/26/2024 14:21 Report Date: 11/26/2024 14:21 At the request of: COLE ALONSO DO Procedure: US OB BPP w non-stress Biophysical profile. Reason for exam: Excessive growth. COMPARISON: BPP 11/19/2024. TECHNIQUE: Transabdominal imaging of the gravid uterus was obtained. FINDINGS: Tank Stave Assembler reports a BPP of 8 out of 8. Normal JET of 22.6 cm. heart rate 146 bpm. US/US OB BPP w non-stress IMPRESSION: BPP 8 out of 8. Impression dictated by: Alexy Sparks Jr., D.O.11/26/2024 2:21 PM Dictation Location: [place] [address] Electronically authenticated by: [id number] Y Date: 11/26/2024 14:21 Dictated By: Alexy Sparks M.D. Signed By: 11/26/24 1424 DD/ 1421 TD/TT: Server Security Administrator: [facility] RadiologyAnjanaogparam rangel MD - 11/26/[address] [address] Ultrasound Report Signed Patient: SHERLY ASTUDILLO MR#: [id number] : 2000 Acct:[id number] Age/Sex: 24 / F ADM Date: 11/26/24 Loc: US Attending Dr: Cole Alonso D.O. Ordering Physician: Cole Alonso D.O. Date of Service: 11/26/24 Procedure(s): US OB BPP w non-stress Accession Number(s): [id number] cc: RADHA GOMEZ ; Cole Alonso D.O. [address] [address] Patient Name: SHERLY ASTUDILLO MRN: [facility]:[id number] date: 2000 Sex: F Assigned Patient Location: US Current Patient Location: Accession/Order Number: [id number] Exam Date: 11/26/2024 14:21 Report Date: 11/26/2024 14:21 At the request of: COLE ALONSO DO Procedure: US OB BPP w non-stress Biophysical profile. Reason for exam: Excessive growth. COMPARISON: BPP 11/19/2024. TECHNIQUE: Transabdominal imaging of the gravid uterus was obtained. FINDINGS: Tank Stave Assembler reports a BPP of 8 out of 8. Normal JET of 22.6 cm. heart rate 146 bpm. US/US OB BPP w non-stress IMPRESSION: BPP 8 out of 8. Impression dictated by: Alexy Sparks Jr., D.O.11/26/2024 2:21 PM Dictation Location: [place] [address] Electronically authenticated by: [id number] Y Date: 11/26/2024 14:21 Dictated By: Alexy Sparks M.D. Signed By: 11/26/24 1424 DD/ 142 TD/TT: Server Security Administrator: [facility] Radiology Study observation (narrative) [facility] US OB BPP W NON-STRESS Ordered By: Radiologist Radiology on 11-26-2024 [facility] Work Phone: Legal Documentson 11-20-2024 Legal Documents [id number]#1.00O TGTIFF [facility] Urinalysis macro (dipstick) panel (U)on 11-20-2024 Bilirubin, UA Negative Negative - 4(70) +++ mg/dL [facility] Blood, UA Negative Negative - 50 Osvaldo/mcL [facility] Clarity, UA Clear [facility] Color, UA Yellow [facility] Glucose, UA Negative Negative - 1999(110) ++++ mg/dL [facility] Interpretation and review of laboratory results Normal [facility] Ketones, UA Negative Negative - 160(16) ++++ mg/dL [facility] Leukocytes, UA Negative Negative - 500+++ Edison/mcL [facility] Nitrite, UA Negative Negative - Positive [facility] pH, UA 6.5 5 - 9 [facility] Protein, UA Negative Negative - 1999(20) ++++ mg/dL [facility] Spec Grav, UA 1.02 1 - 1.03 [facility] Urobilinogen, UA 0.2 0.2 - 12 mg/dL [facility] Outside Recordson 11-13-2024 Outside Records [id number]#1.00O TGTIFF [facility] US OB BPP W NON-STRESS on 11-12-2024 [place] [address] Ultrasound Report Signed Patient: SHERLY ASTUDILLO MR#: [id number] : 2000 Acct:[id number] Age/Sex: 24 / F ADM Date: 11/12/24 Loc: US Attending Dr: Cole Alonso D.O. Ordering Physician: Cole Alonso D.O. Date of Service: 11/12/24 Procedure(s): US OB BPP w non-stress Accession Number(s): [id number] cc: RADHA GOMEZ ; Cole Alonso D.O. The [place] [id number] Patient Name: SHERLY ASTUDILLO MRN: [facility]:[id number] date: 2000 Sex: F Assigned Patient Location: US Current Patient Location: Accession/Order Number: [id number] Exam Date: 11/12/2024 13:57 Report Date: 11/12/2024 13:58 At the request of: COLE ALONSO DO Procedure: US OB BPP w non-stress BIOPHYSICAL PROFILE: CLINICAL INFORMATION: Excessive growth COMPARISON: Pelvic ultrasound 06/07/2024 There is a single live intrauterine gestation in breech presentation. The reported gestational age is 31 weeks 3 days. The heart rate [id number] beats per minute. FINDINGS: TONE: 1 or [...] Bailey Beasley M.D.11/12/2024 1:58 PM Dictation Location: [place] [address] Electronically authenticated by: [id number] Y Date: 11/12/2024 13:58 Dictated By: Bailey Beasley M.D. Signed By: 11/12/24 1401 DD/ 1358 TD/TT: Server Security Administrator: [facility] Radiology, Radiologi MD juan carlos - 11/12/2024 [place] [address] Ultrasound Report Signed Patient: SHERLY ASTUDILLO MR#: [id number] : 2000 Acct:[id number] Age/Sex: 24 / F ADM Date: 11/12/24 Loc: US Attending Dr: Cole Alonso D.O. Ordering Physician: Cole Alonso D.O. Date of Service: 11/12/24 Procedure(s): US OB BPP w non-stress Accession Number(s): [id number] cc: RADHA GOMEZ ; Cole Alonso D.O. The [address] [id number] Patient Name: SHERLY ASTUDILLO MRN: [facility]:[id number] date: 2000 Sex: F Assigned Patient Location: US Current Patient Location: Accession/Order Number: [id number] Exam Date: 11/12/2024 13:57 Report Date: 11/12/2024 [...] Bailey Beasley M.D.11/12/2024 1:58 PM Dictation Location: [place] [address] Electronically authenticated by: [id number] Y Date: 11/12/2024 13:58 Dictated By: Bailey Beasley M.D. Signed By: 11/12/24 1401 DD/ 1358 TD/TT: Server Security Administrator: [facility] Radiology Study observation (narrative) [facility] OB BPP W NON-STRESS Ordered By: Radiologist Radiology on 11-12-2024 [facility] Work Phone: Outside Recordson 11-09-2024 Outside Records [id number]#1.00O TGTIFF [facility] Urinalysis macro (dipstick) panel (U)on 11-06-2024 Bilirubin, UA Negative Negative - 4(70) +++ mg/dL [facility] Blood, UA Negative Negative - 50 Osvaldo/mcL [facility] Clarity, UA Clear [facility] Color, UA Yellow [facility] Glucose, UA Negative Negative - 1999(110) ++++ mg/dL [facility] Interpretation and review of laboratory results Normal [facility] Ketones, UA Negative Negative - 160(16) ++++ mg/dL [facility] Leukocytes, UA Negative Negative - 500+++ Edison/mcL [facility] Nitrite, UA Negative Negative - Positive [facility] pH, UA 6.5 5 - 9 [facility] Protein, UA Negative Negative - 1999(20) ++++ mg/dL [facility] Spec Grav, UA 1.02 1 - 1.03 [facility] Urobilinogen, UA 0.2 0.2 - [...] 124.010 kg Body Mass Index 42.82 kg/m2 [place] Body Weight Calculated 61.6 kg BSA Measured [...] lesion. Impression and Plan Diagnosis Tinea corporis (HNQ38-UW B35.4). Plan: Will treat with topical antifungal over the next 7 to 10 days.. Orders Orders Pharmacy: ketoconazole 2% topical cream (Prescribe): 1 zoran, Topical, Daily, for 10 day(s), 30 gm, 0 Refill(s). Orders Evaluation and Management: 30476 Office visit - established pt, Level 3 (Order): 10/25/2024 13:24 EST, Qty: 1, Tinea corporis - Eustachian tube dysfunction. Diagnosis Eustachian tube dysfunction (LPH44-CV H69.90). Course: Discussed with patient most likely some fluid behind her ear. No evidence infection. Continue to just observe.. [Electronically Signed on: 10/25/2024 14:14 EST] Radha Gomez MD [Verified on: 10/25/2024 14:14 EST] Jason [facility] ALL CBC WITH AUTO DIFFon BASOPHILS ABSOLUTE AUTO 0 [facility] Basophils/100 WBC (Bld) 0.3 % 0.2 - 2.0 % [facility] Eosinophils/100 WBC (Bld) 2.1 % 0.9 - 7.0 % [facility] Erythrocyte distribution width (RBC) [Ratio] 14.3 % 11.0 - 15.0 % [facility] Hematocrit (Bld) [Volume fraction] 32.1 % Low 36.0 - 48.0 % [facility] Hemoglobin (Bld) [Mass/Vol] 10.5 g/dL Low 12.0 - 16.0 g/dL [facility] IMMATURE GRANULOCYTES ABS AUTO 0.34 High [facility] Immature granulocytes/100 WBC (Bld) 3.4 % High 0.0 - 0.5 % [facility] Interpretation and review of laboratory results Abnormal [facility] LYMPHOCYTES ABSOLUTE AUTO 2.4 [facility] Lymphocytes/100 WBC (Bld) 24 % 20.5 - 60.0 % [facility] MCH (RBC) [Entitic mass] 27.9 pg 26.7 - 34.0 pg [facility] MCHC (RBC) [Mass/Vol] 32.7 g/dL 29.9 - 35.2 g/dL [facility] MCV (RBC) [Entitic vol] 85.4 fL 81.0 - 99.0 fL [facility] MONOCYTES ABSOLUTE AUTO 0.4 [facility] Monocytes/100 WBC (Bld) 4.2 % 1.7 - 12.0 % [facility] NEUTROPHILS ABSOLUTE AUTO 6.7 High [facility] Neutrophils/100 WBC (Bld) 66 % 43.0 - 75.0 % [facility] Platelet mean volume (Bld) [Entitic vol] 9 fL Low 9.5 - 13.5 fL [facility] TBH EO # 0.2 [facility] TBH PLT 332 [facility] TB RBC 3.76 Low [facility] TB WBC 10.1 [facility] Office Visiton 10-24-2024 Follow-up visit [id number] Sherly Astudillo 2000 F Date Provider Department Center 10/24/2024 65510-PRUGFJANGEL LUIS EVANS Family History Problem Relation Age of Onset Diabetes Mother Diabetes Maternal Grandmother Diabetes Maternal Grandfather Family Status - Relation Status Age at Mother Maternal Grandmother Maternal Grandfather Level of Service:04197 [place] OFFICE/OUTPATIENT NEW MODERATE MDM 45 MINUTES Reason for Visit and Comments: Rapid Heart Rate [771506] - Episodes of tachycardia include lightheadedness and SOB. Denies chest pain. She says sometimes HR gets up to 160's with rest. Problem [269835] - Currently 28 weeks gestation. This is her 2nd . She denies having issues like this during first . Palpitations [540329] Shortness of Breath [554041] Dizziness [392918] Normal [facility] Urinalysis macro (dipstick) panel (U)on 10-22-2024 Bilirubin, UA Negative Negative - 4(70) +++ mg/dL [facility] Blood, UA Negative Negative - 50 Osvaldo/mcL [facility] Clarity, UA Clear [facility] Color, UA Yellow [facility] Glucose, UA Negative Negative - 1999(110) ++++ mg/dL [facility] Interpretation and review of laboratory results Normal [facility] Ketones, UA Negative Negative - 160(16) ++++ mg/dL [facility] Leukocytes, UA Negative Negative - 500+++ Edison/mcL [facility] Nitrite, UA Negative Negative - Positive [facility] pH, UA 7 5 - 9 [facility] Protein, UA Negative Negative - 2000(20) ++++ mg/dL [facility] Spec Grav, UA 1.015 1 - 1.03 [facility] Urobilinogen, UA 0.2 0.2 - 12 mg/dL [facility] C Throaton 10-08-2024 C Throat Normal throat justine isolated No pathogens isolated Normal [facility] Comment on above: Performed By: #### [id number] ####[facility] (DEFAULT)[address] [place] [address] Coding Summaryon 10-08-2024 Coding Summary HTMLBase 64 NzrnsfvcZTv2pFk+PGhlYWQ +MH0DFCVsG52arTNqrU8uS7 NMTElOSywgQVBQTElOSyIgb qDaUF4cdNHiYFEi IC8+RI5dOVOzPepneWXpb0G 0pFB4V18gsc4wREcyiZP6LV YrVhXmrpsam3sipWf2NDzeZ mluOyBt NJWzlD26LHI2yS08Nf22sUV xaCMhx1yrrLl1RwXkOPViGO M6mPhvJClvj5YyDKOjS18qq VOkl4M8 RIYykQxiqHWnNjFloIT6nK9 uCFdhqfvsp0fhmidcUlf1bb 17yWQlw5H3wKI6B9NjufK0D GJvbGQg XgosgIKSbT3qzgrdi0enffy eBnLoJVNjXTi6IPa0GOPdwY ltTaXcFS44IPL0XPSvnfIxG 2FsLWFs lHykOlL5p3Z7Uw0VT4XEBaf wX7SMVIUMOTbkzGP+PC90cj 67W7VrAnuzKhy5OHAqOYC9m RY9qK8k FHWpWRxtl8R3bKG4J5RkhsT isd5sz0nrJGTiQZivP48zlB Uvk1W6JOTavHF7QYEqvVyhK iBzaG93 Oyc+LOUvaDvqj3ArEeitf7i zd0eksGj9XpdnATCeatOwcI maCXX5i7YkUi1lFPZiyZC2c GI3jC3d LxVtTfR2NKfvW496ApAggOL vWiccJ52yD1RicMU+PHRyPj o0JHOokRiiOR5dK9PpAVCax mctbGVm bWpaQG6oGKLhwhffDAJznI0 dPBUsS5h4IcBeQjT6BLwcY2 HdSWClobyxYh06lP1hCpGhL dV2SAvq C9TqhxM6WAWseWZuQFcwICB 5R49bk4F3YMZdWGDyUGL3eB W8eA1abVebvammfMQxvMwel mVydGlj HPkrBIoyN751XUIbsTuvHxM vZGluZyBEYXRlOiAgMDIvMD MvMjAyNTwvdGQ+GRSkRAZ1p WxlPSAn qAYvWNgnEb5teTuspAlfTJ4 fIYUilffpCAHhvG0cHYEhaJ NkbHdoSU8sCTJgxozhy790J iAxMHB0 IMNluKQrE7GifY9gDaHkKFN jYCLjT8RocAMiYEwoZ992DH ofSxZ4OVCqsbSsO5QzOZUdz WduOiB0 z5P0Wu6Ph9FniqbtJ2IchFM mVjPdMgpuIXq8J8QrGttzdZ I+EE14RGKhEE31EDo7TDR9i WxlPSdi UCOeN9RnjB3lJqVkJLNsPJW kOyc+PHRhYmxlIHdpZHRoPS blSXDoLlDdeFubWT3xQh1hP GVyLWNv xVjkiJSeLrRpc8lhMAAhLFg xIK2pcEphZ0ZyaYK9NEQsh8 c4Qi41A31dS7IjmGC+PGNvb XH7iMY6 sO1iRsEeNoI7BHjnS529YrB neMZkEprdn6olh5verLb4Xa E2MFFisnIceEwaIZD5n9AbF z71N27b IHdpZHRoPSIxNSUiIHZhbGl krw1caP3cPe2+SAUtjQI4nT O8zE6bTfNkFwN7DIzkR139N nRvcCIv Rlbdl0bzf5nnrTf7QqLsDBX owiTfnYviELB5r8OgJa59T7 XyxIira3OcNpm7fe79yYPny 4I4iHY9 P4QhMEGzogjwrGWciMeeGB4 wIOCttwgvXAYwgN5mHLOoC1 i2JtPhYyB8MMdxT1IbxfV9Y GJvbGQg IABrzXYGtU5tapqwt7ryusv xDvInXODfZJv3ZBt3TKKntF scIfUfIQS6QhV4OEM6eCIom S3dkMer wswfyX1zEfg+KJH1wVRkqIQ USV7pAibzoVQ+WGRlOKV0uQ piUTnrXTPtjQ3nMJJbH0i3H iAwLjA1 IQvjD9TwzwH8VJDyyTCoYFX hfNOTgT8cxnkst5nnoajgTl PwLRLkHHa0NXt2XUVlwTpkC iBsZWZ0 WpK4RCX8oYQigC8exBmxutd rnC4qGco+BuzzhNexCMD2ZP y5S4ShHya4KBYuyNraRP2hp GFkZGlu Wi8anWivkZnaBM3zGECjchi er375JnRgr5hmIYYmwEYuWL paTQZ4J11fi1H4DDMeOCByD QB8gKY8 fD6mqPltfjnubBNwqIhoxkX voPteZNsxAYaoK031BEDqlF ktUvQjVOj3Y3TuGaw5JUKcs LhwGG7e rZByOVolNd5keLebvDuwOH7 zZJKallcyt355ZzKjg7ufGW MycXEpRQwkWSX3P91xj1O0G CMwMDAw IBT7zAE5aY4xwSaemjpnyCN mdDsgdmVydGljYWwtYWxpZ2 26ZIEwgCogHnPjyNp6W2FuG pd3MHDm mXleBO8ldKLaWWawEc4ogUn ahErnFO8yRNIezdzpz110Jg Kpg1lpMKQmwGLaAAziYXP4T 44ve1A3 FSVtCRDjSBJ3pWB2jJ4hoSx nbjogbGVmdDsgdmVydGljYW zvZBipD099NBKsgIraIqKqf GllbnQg RXimPOt0I3KcVwdayWG+PC9 5KTFwST03hHQctOVqj9gauJ g5OhMaKZEhCOQ1xEenMHpfx 3JkZXIt D47brAOpy1M7HLZthDpjsXX fLdFptNZ7oC1iUFqmtmukb6 sjhuzvRsohb4qwfn76jO88O 29sIHdp ZHRoPSIzMCUiIHZhbGlnbj0 ncW8tTh1+UBRscMQ7gZV9wO 8mAQUmBgN6TEwlI768NbAak CIvPjxj e4urp1dcxFg3ZlK7JOZxhxT naCamPQK1o4DbUd16T46wOR dpZHRoPSIyMCUiIHZhbGlnb i0mmQ4l Ii8+NRXneDS1nEA0xB4wStE wQlG5GWkyI136NdRoyYYwEk geE22xU3MptFD+MGIkBsy0V CBzdHls HV0csRBxYYegTr6lCCW0IbD lWxDnTEtfY9YrBITexerdio oqlRY7BDYyMLTqhC64Ap0ny DogMTBw jVPCjS0krzyiu6puuqnfYbO sNWTsHZj6WMs2HQTrsJbpMs UiGND8WvO6JHH8cXXicC7nx Glnbjog sJ4eB8MgUOQmifmmTv83cD3 pYbAiQdA9CWvnIrj+Q1JBV0 ZPUkQsIEJSRUFOTkUgTUlDS EVMTEU8 M1UuWvs7PKNoyCtjAX1kyKS tHRbdLg3rxYfsbKkpGC2uHJ LwuljqCOZoaJ9vGZVdsFEyi TxiBD3c VSIopgdbz339KiLpPTS1KYW pgUGlL8TigE1uFaUzYXRxUI CuK8UgqEZfGOhhV829NIelG iH1ROUc fnJlK1KdAPTxnQajBbB3s0L 4Jm9pNi2eXC0uFTh7PM36IN 96cMUae3L2dVO2F0TtYHUho mctcmln kQB9MLBfDQGdtE36sILmANc uJg5dp4Y5a424KQEtCIWnkD 38Iq1psSclMOZwmFRIbS1gg lpge0zl zgdvYtHxBVKcNRy9HYz6ETS ieQzqPgCuHUE6BdK0NYM2aZ ZcaG4gaCsfffjdoL2jPis+M jYgWWVh akU6J2DyMqq8MXErfSafKN2 xuSGeOLogEf8svVcgdBmgOW 3oRRKyrcqfGUJfyS1bSDNkn HRvbTog ZH4oYIKmgxojk144NxWnHTJ 0XWOhnIOkA9CgrF7sOrNnMX NqPHVgI4SvpCYyEPyoK613M GxlZnQ7 PTOgieVvM8MjBIXroHuzLeZ 5b5B6Wk9PNM3BJTX8J3TsZz v5INHikSfzNW7ifADqJYdsW y3zjGnw kUczAH0oDXDwsmbdGDHwlG5 ySTErmWZxaTwwKO0zFNDcfx gqt149KbJwZZG5IYPkqWTwT 2FykJ5h HqKkNETrPFLjR2YhoOMgQVs gL214FCvsQuC1WVTvrdGoD6 EnTBJshBlaEuR6g3A4Rh6BM DwvdGQ+ EN06sn02D8ZpWyefPiu5CRW hDBT4xSJ1bX5zHBAuAPqjd6 J2dHL1M5TvajNpcn9ev1nmP XBzZTog U72awXYep2G7KPObnJE3OGH ahUabRcBfxK53Pia+PGNvbG fxd5DkUmlfd4oth9wboTs5M jMwJSIg arKdvHxbLPG1y2IxGp95U71 sIHdpZHRoPSIzMCUiIHZhbG ropu3ltJ0aUh1+FXMgxNC1q BL6oG6w PsRbVyT6OOvlE177EcJobOU pClked8amx5iccRa5GmMyBK YzhoWwxKrpABU0n4HsWk23O 2NvbGdy b7HoXrv8kq95kQCsk8V7lUV 0L8KqYAGccpzorZZjgYkxHU 2nBPNolbqkCEWlhI8zWWOeU 7r0UjJf LqM1AOkiR6XzlwV7JGCbdTJ jXURqvADDoL5tjhifn8eweo rjWpFyKBLiEGw2MGh1BSSux WduOiBs MYL3UaJ5ZBW0mVVobX9qrAq ieapynK9rWzr+HBn9q8pybO PxWV6mgMZ1BD26JW56mKPez 4K3vKN4 X7IcWYVxfafdtkzdzQT7KHG pXPSagT96Rt6spBcnIt6zMU WqQTS8RUSufMLkA3PioA2eY iAjMDAw QRPdX9ZzyOCtMQdiS604WIn pQlR1ZEKdwbRaU6KdJSXffK sfDfW7m9Y5Uq3SRR74AW72C R37sBCp a1D5cGL4X8MhFMUlodzplpl zoPK5QSCvNQYpxP95Vk0ptF ysMs9uNYIcCRU1ZFAvyVOcC 2YgcT2b JsKeHZVpONEtZ6VjfISoLUl kT220UHtiRrT8QDGasuXyL9 IsYBBfgBqaCvE2g5S6Fm7MH o91CU35 NK66ePTcm0U9tPB8Y6QyHKK vhyprdldtoCL8NQWwALAyyY 55Ru7rcZfaMe1nCGSiPYK8Q FRpbWVz U1MhiT0gZiMiHXFjJEPmN5B tqJRpPWgxQ505YWycNgH4FH RfjoNiE0RhFHCnbSxoIqB7h 7L6Ci8L GDdluwt9X8ZdTzjdjWW+PC9 4XLJhOT27aMEtyOGqu9ehvT q3TsPbMZGqEZW0gStvRPeuj 3JkZXIt Y29 (more content not included)... Normal [facility] POCT Rapid Strepon S. pyogenes Ag IA Ql (Unsp spec) Negative Invalid Interpretation Code [facility] Comment on above: Performed By: #### 9 [id number] #### [facility] (DEFAULT) [address] [place] [address] C Throaton 09-26-2024 C Throat Normal throat justine isolated No pathogens isolated Normal [facility] Comment on above: Performed By: #### [id number] #### [facility] (DEFAULT) [address] [place] [id number] Coding Summaryon 09-26-2024 Coding Summary HTMLBase 64 AqzcecdkHHi6jLk+PGhlYWQ +DF7PKSOdO97ryWBtxS1fL1 NMTElOSywgQVBQTElOSyIgb kCjPB7jhWSaIDAg IC8+RC2qGUNdQeorvVDxj0H 8qNW6L46uvz8qEJqimYH2KH UtGhYbmciiz4tqlYp4GAvxV mluOyBt IMSzyT02OAW9kK50Yg11tEC vdBXos8ppaYv0NrVfIQXzZR E7nWnkVFbem4PbPZQyE05ni YWns5M1 PMBcnCuehZGeTtUpsUE3zD5 dYFtkmqkxe0xcaddrIfq4yq 89dLQxl7H8uLZ8W7WmxwH3D GJvbGQg OkznuSEXmO2trrihr0guqob eTtDcHKRlCMo1SDe8BLAjgE bjWvUzOQ49VBL4KDUtbyVqL 2FsLWFs xAeyIaM4b0K6Kp4OD0FFImm kT7VUEFKRJXippRV+PC90cj 83F9DiFeqtMnq3ZOEbVAR3k RT6mX6l LXDpTZfyy1D7sLA1Q7RsngC tkb7hn5epQEDyRDtdR39fuR Hxf9Q3BDQahMV5ETYnrBizI iBzaG93 Oyc+OKAatZxvw9IiPmaxq5m ew1ookIc3CmuaMAWvaoPoaT zdFHO4s7QpSj8qYADipMI5x XM7cR3r RxKoGgN5YEpoU590XdOezLL uNvrxP76aX1IzbHF+PHRyPj u3NEVjeRbqTQ6rA7RqCSBwl mctbGVm oIdnWL0iVYLzzjckNSBgnV0 yHKSvO2z5OuLlCuT5OYbjB6 XbXNAxbyxxPi70uE5uLjJsH sE9RBjq X6AsicM1OVCobUUoOBttIEU 4L13pr8H2WPHaHTHrJEF6lI E7fF1ytHwqxkfvgWKwiScsh mVydGlj CVqbKXxdC914UFSniGyjEeB vZGluZyBEYXRlOiAgMDEvMj IvMjAyNTwvdGQ+DHDhCNK7v WxlPSAn tBIlUGvrRy9utUmysUbkVF1 kFIQfuxdaLWDloY2sSUPjiU JypRlhJR8zGBVeuhkgr848A iAxMHB0 NUVzuQZqE3HulF7gXzFjDZT cZMRmR0WruLXbTJamI649ZF unJfK8FAUykmWqC4GuCWLrh WduOiB0 i1H6Mi2Ae6YmgnqiR6UvoUH eDdRlMispBDn2F3FoRgxcoR I+QT57RKZeZC83XNn8YYW4k WxlPSdi NIJsP8ZphO1bPkAjQNAaYLJ kOyc+PHRhYmxlIHdpZHRoPS wcDWIjIiCqpRqnXZ9jLs3pB GVyLWNv gPselXNwEqCfi9dvAHLjLOc mSK4zuZkbD3MhxTZ8SBTpi8 z1Wz67W95qQ6JlwOI+PGNvb LH0sVW1 cJ2zAgBmBqQ5KVvdG276RpI kvIWaPapem7xaq1dwaQe7Bs V1HUVrasZazNfoENV1v6CqQ u46J18b IHdpZHRoPSIxNSUiIHZhbGl izz9rpZ6iEl1+KAXxvMU7yG L0iA8xUtFiRvN8QWasA753Q nRvcCIv Xezdb5cun0uqaFm1EbKpTWM sfdRizRpqFVQ7p7DhKy43I0 TweOopb6NdJvv1yn25vIMeg 4S5lYG9 P7PrSVXfwdvzwPBbmYdmKZ7 pQYEkjoniWZEfbQ2sQNFnN0 q4UwUbPgN3TGneO0BpudT5W GJvbGQg SIKbxGTYcL9orlmel8wgxgn bKbAhXFTvEKo5TXb0DRDvyG evOlKaTWR1TeQ3LNR3jWEmf D3laMzz empqgS8jLkg+VJP3aXTsrOL EAC0nOznwmJH+LLLuKQQ1iQ yuCHqtEXHdfI7aGGNaB1a5N iAwLjA1 HCkuI1TwtyV1JVPqkSDtZAW bwMHLbM4eheqga5zwfoosVz GuSYMvNLm2HKb0YNNfcTbvD iBsZWZ0 NiH8MVV2fTBqeD3ytRzfply saH4yMfu+MesnoHkoOHR6GX m9F7DrIob6GQJptGdzXP5et GFkZGlu Qk2skDxxdSdhYC8cZKTjtuw qw410XwWld6zvEHGprWTuHE cuGYI5N92zo6Z1QIFbSKOgM SL8nXR1 dS3yoQqgbuxgmDDlaZhucrB dgPxvLOzlDOiiW507QPTtgW ycFfMvWTz5V7XiMbt3PCJmd WfhOE6w oVPfYYquHz1rkMtjdDndEW1 kPFZsghrdu360VnFvi4hlUU PzpFGuVXjeKIT1T51am6V7N CMwMDAw DUH8bSG9mY4tvZuvopegzZB mdDsgdmVydGljYWwtYWxpZ2 63UPWdeYhuTqBliEa6V2OqL zc3JRPm cCepZQ8coTDsWZetDy2hjNy zjOvoOC8oLJDfzdxac202Hf Mwe7neECTggFIeJUwaGZG2N 28fe2B1 XXXqXTAbEBH8mRZ2cM3tzTd nbjogbGVmdDsgdmVydGljYW laCShlW253PPAojKjdUqFpc GllbnQg LZvoRDq5E3KmKvhxfZU+PC9 0VQLvUD10mRGrdGTlb0bkyC m9DyTfIFIyVJR5aYbkBEysn 3JkZXIt P17zsLEfi5D6NILuoLafiPD oFzWqnYK3lD6jWTxoitmwd3 rzmuioJuuuy2izps38pC03G 29sIHdp ZHRoPSIzMCUiIHZhbGlnbj0 wkQ1iKu8+NYHhwWR7dKE0xG 6aLNDaMnG1YGajV409JkOkm CIvPjxj p2yju5hlmYz8ZqT9HLPkkoQ chHprGFU8v2FfEo69P68xVE dpZHRoPSIyMCUiIHZhbGlnb j3dlS3c Ii8+JHQfgXH2qOL8aA9tKlF dHfV5EGriU031FuCtqCUjJp hbY18bD3MgpGM+UUBkDkp0R CBzdHls ZU2wuFYdZXitJx9oQVT0AqA pIaYgJSirB5NiKDDszwthqb ydeHB3HRLaRFGvsP53Um3yq DogMTBw vOSTjU2rwroeq6umazppZiF dWPByACb1SLg4ONXyuUfeZj HlONU5ZnD9ABP1rRZdvO9ap Glnbjog jE1cT1WuQQJgzyajNt85dB5 pGxNvQnC9MLaiHui+Q1JBV0 ZPUkQsIEJSRUFOTkUgTUlDS EVMTEU8 C0DbCid8UZMxdRhwKG8fjVL xTDiqYa2ayXqeoChrBG1pQW LmhfszGOWwnZ9gKIGtlQAyo PqaTG3x YOTgluloc264PkJkSJV5SOI maYTiE4ZzrC9iVzYnPKEaGE HtQ9WsfANqJMzyD935SWotY qU0AYLz sbRjL0ZnXEThzTkmZqA3e0S 4Qf1aRg2uQW1nISi1GF28HD 80aQMwb7N8yBF6L6JvODNbr mctcmln xFP8HLMjQXNjaJ49yFIxXYa yRz6ci5U1m827CWRdFMFxwH 18Wv3baOyhSXPqmOBNxY2nd xipd5fm awyxOmXcPCRhJYj7GLd9JUM wzYtfIcYrOBB2KxB2NGQ5pD MbkG3dvWrsiggdxT0aQhk+M jYgWWVh isJ4L6OeIzv4OYTxdUulSZ2 vjYBzZIisDy4mbClegExsWG 3oASMpxohtZPPydC3gNFEpm HRvbTog UB5sBYUikiswq881WjVdDSO 4HGFknKXiE4HikH9gXqZxWI YgWDHuY0WrmEPvZIoiP580R GxlZnQ7 YQFowvMoY7XkPACkbNsfGvD 2y2R5Yj0JYW3HHMP9W2EfOq v3PXGddVimFG0qxLRrNMkrC a7ilMoa lPffRR3kXQFbyeruYVIbkE4 gOXQbdQIsbIqcMH5xSQSbps lef361UcGxVRH1KTUahJJnL 3UvtH7o KhLgWVZvCZLhC8IoyGBlZQu oA043NXuqHoD2HZYqejSqG2 EaIDQnhUqnAlB7i8D0Eo4JG DwvdGQ+ CU35ll74B1XsJrndDav3PYN zZBA4pSD3mP1vICGyJSqmc0 Y3pUH8P0RuiaUril5yl6bzM XBzZTog J59zlQJkz0T6TAXkuSE1RMR xsSjoIsVejH46Zii+PGNvbG xaf0DiDcqjn6qkx8aqbNn7Z jMwJSIg vmLqcKwnWXV4j4LaVl06U23 sIHdpZHRoPSIzMCUiIHZhbG kput4pwJ2tGf5+SUVrvYJ3z RX3tY6j DqTzSjV7NItwV683CuQeqVP gPvpvb8uez9mbwNn6IaYrDM TvurSqtFafJLO0p6DiQm15K 2NvbGdy y5GgPkb8ue12zMJpg6W3bES 0V9KaXJWlihaibGUaiOywNM 2dMOPfeghbFLFowF3mLWCaO 4u4DjZd VwF6SPqlS6UilsM5FELlkRK sXFXxdYDIuD8vylyym0vgti zlMiFbZLWvJHo8HZf8RTAxy WduOiBs VDH5KgP6BIJ9zDSqiL6mcSu xtxlcqZ8zGih+DBa0q2yncI DjJP9ulRC1ZS91QV86kQSac 0W5lOE2 R9YjKPKwcshscmgbgUW1XUW xZJOfoV11Cq7dxYepDj8nTE GiVGN3MSBkgKRaA9CrgM8lL iAjMDAw ADEoH6UdsLSvYRtfA810XMj yLtT3RLNhgcZpW3LfDULnsY cmYjL7x7H3Kn3QVR75LA31L Q86uSXz o0V1zEQ9T1TvHYEpbexmvho ucKW9TOBmLBVbiH46Is4euN eyLu2rSIPhRSV8MQEzdLMyH 2YyaS5k LfCvZPOkWSZxF7VxxQDiTEw fL658HZbtFwR1XBIfvsMyG1 YjSRFzoQomRmN1k9N4Bh9XJ a84RL81 MK66mMMma2A4uTI2W3GgZWI owktcxqrndDV6CPKiELEzfR 90Mk8bmTuyIf7cOQXuWZR7N FRpbWVz J2WpzN6oXeUyICKyMZGmH1L gzFZmZDieS640SFxpAlY5UJ MjbfYeP9XyVWIqyQlpPuG8f 8A3Gm4S LDasmmj9K0PtMdqdqAU+PC9 3ULFyLS40zWEwlERie4rqaL w5OuBoITWmGZE8nDoiFGtwt 3JkZXIt Y29 (more content not included)... Normal [facility] ED Clinical Summaryon 2024 ED Clinical Summary [facility] ? Urgent Care [address] [place], [place] [id number] Clinical Summary PERSON INFORMATION Name: SHERLY ASTUDILLO Age: 24 Years Sex: FEMALE : 2000 MRN: Acct#: Visit Reason: UC - Throat Problem; THROAT PROBLEM LT SIDE Arrival: 09/24/2024 12:32:36 Discharge: 09/24/2024 13:30:00 LOS: 000 00:58 Check In: 09/24/2024 12:32:36 Checkout: 09/24/2024 13:30:00 Address: [address] [place] [address] PCP: Jason MCNEAL, Radha Santo PROVIDER INFORMATION [...] With: Address: When: Radha Gomez MD [address] [place], [place] [id number] In 3 days Comments: You have been [...] next 3-5 days, also f/u with your RFP WRITER, for reevaluation, return to the emergency department/urgent [...] 1:Oral sharon; 2:Pharyngitis Patient Understands: Comment: Normal [facility] ED Patient Summaryon 025 ED Patient Summary [facility] ? Urgent Care [address] [place] [address] PATIENT DISCHARGE INSTRUCTIONS Patient Information Name: SHERLY ASTUDILLO Age: 24 Years Date of : 2000 Reason For Visit: UC - Throat Problem; THROAT PROBLEM LT SIDE Arrival Time: 09/24/2024 12:32:36 Primary Care Physician: Radha Gomez MD Attending Physician: Larissa Cobb Comment: Patient Education With: Address: When: Radha Gomez MD [address] [place] [address] In 3 days Comments: You have been [...] next 3-5 days, also f/u with your RFP WRITER, for reevaluation, return to the emergency department/urgent [...] these instructions at home: Medicines ? Take zijn-ajn-weasnko and prescription medicines only as told by [...] cool-mist humidi (more content not included)... Normal [facility] POCT Rapid Strepon 5 S. pyogenes Ag IA Ql (Unsp spec) Negative Invalid Interpretation Code [facility] Comment on above: Performed By: #### 9 [id number] #### [facility] (DEFAULT) [address] [place] [address] Urgent Care Recordon 025 Urgent Care Record [facility] ? Urgent Care [address] [place] [address] PATIENT DISCHARGE INSTRUCTIONS Patient Information Name: SHERLY ASTUDILLO Age: 24 Years Date of : 2000 Reason For Visit: UC - Throat Problem; THROAT PROBLEM LT SIDE Arrival Time: 09/24/2024 12:32:36 Primary Care Physician: Radha Gomez MD Attending Physician: Larissa Cobb Comment: Visit Diagnosis: Diagnoses This Visit Oral sharon (B37.0) Pharyngitis (J02.9) UC - Throat Problem ([id number]) If you received any narcotics, sedation, or [...] documents With: Address: When: Radha Gomez MD [address] [place], [place] [id number] In 3 days Comments: You have been [...] next 3-5 days, also f/u with your RFP WRITER, for reevaluation, return to the emergency department/urgent [...] and treatment you received today in the [facility] were for an urgent problem and are not intended as complete care. It is important for you to follow up with a doctor, nurse practitioner, or physician?s bilingual executive assistant for ongoing care. If your symptoms [...] so we can reach you if necessary. [facility] has provided you with a complete list of medications post discharge. Please inform your molded goods controls operator/provider of your visit and for further instruction on these medications. Any specific questions regarding your chronic medications and dosages should be discussed with your primary care physician(s) and/or pharmacist. New Medications [facility] [id number], [address] [place], [place] [id number], [phone] clotrimazole (clotrimazole 10 mg oral lozenge) 1 [...] it is (more content not included)... Normal [facility] Telephone Encounteron 2024 Boom Stick Worker Authentication Interface Message Text Called patient lmom to call office for sooner appt... we have them available. Thank you Normal [facility] DRUG SCREEN RAPID (URINE )on 09-10-2024 AMPHETAMINE SCREEN URINE Negative NEGATIVE [facility] BARBITURATES SCREEN URINE Negative NEGATIVE [facility] BENZODIAZEPINES SCREEN URINE Negative NEGATIVE [facility] BUPRENORPHINE SCREEN URINE Negative NEGATIVE [facility] Comment on above: DRUG CLASS [...] Healthcare OXYCODONE SCREEN URINE Negative NEGATIVE [facility] PHENCYCLIDINE SCREEN URINE Negative NEGATIVE [facility] TRICYCLIC ANTIDEPRESSANT URINE Negative NEGATIVE [facility] [...] GDLNon AGE GDLN ACOG TESTING Note . [facility] Comment on above: TESTS RESULT FLAG UN ITS REF RANGE LAB Clinician Provided Cytology Information Source.............Cervix Other.............. No. of containers..01 ThinPrep Vial Age Algo ACOG Crystal... FLAG LEGEND: L-Low Normal,H-High Normal,LL-Alert Low,HH-Alert High <-Panic Low,>-Panic High,A-Abnormal,AA-Critical Abnormal Performed at: 01 =G [address] [id number] Melissa García MD, IGP, RFX APTIMA HPV ASCU Note . [facility] Comment on above: TESTS RESULT FLAG UN ITS REF RANGE LAB DIAGNOSIS: 02 NEGATIVE FOR INTRAEPITHELIAL LESION OR MALIGNANCY. THIS SPECIMEN WAS RESCREENED PART OF OUR ARCHIVIST PROGRAM. Specimen adequacy: 02 Satisfactory for evaluation. No endocervical component is identified. An endocervical component is not commonly seen in the patient. Performed by: Emilie Frost Echo Vascular Technologist ([facility]) QC reviewed by: 02 Lauren Ness, Supervisory Echo Vascular Technologist ([facility]) . 02 Note: Note 02 The [...] <-Panic Low,>-Panic High,A-Abnormal,AA-Critical Abnormal Performed at: [address] [id number] Melissa García MD, Performed at: =G - [facility] [address] [id number] Floor Runner: Melissa García MD, Phone: [phone] Performed at: [facility] [address] [id number] Floor Runner: Melissa García MD, Phone: [phone] SPATULA-ALONE CERVIX [facility] RECURRENT VAGINITIS (HTRX)on 08-15-2024 ATOPOBIUM VAGINAE 0 [facility] ATOPOBIUM VAGINAE Not detected [facility] BVAB 2,3 (BACTERIAL VAGINOSIS ASSOCIATED BACTERIA 2, 3); MOBILUNCUS SPP 0 [facility] BVAB 2,3 (BACTERIAL VAGINOSIS ASSOCIATED BACTERIA 2, 3); MOBILUNCUS SPP Not detected [facility] SHARON ALBICANS, PARAPSILOSIS, TROPICALIS 0 [facility] SHARON ALBICANS, PARAPSILOSIS, TROPICALIS Not detected [facility] SHARON GLABRATA 0 [facility] SHARON GLABRATA Not detected [facility] SHARON KRUSEI 0 [facility] SHARON KRUSEI Not detected [facility] CHLAMYDIA TRACHOMATIS 0 [facility] CHLAMYDIA TRACHOMATIS Not detected [facility] GARDNERELLA VAGINALIS 29.341 Abnormal [facility] GARDNERELLA VAGINALIS Detected Abnormal [facility] Interpretation and review of laboratory results Abnormal [facility] MEGASPHAERA (TYPES 1, 2) 0 [facility] MEGASPHAERA (TYPES 1, 2) Not detected [facility] MYCOPLASMA GENITALIUM 0 [facility] MYCOPLASMA GENITALIUM Not detected [facility] NEISSERIA GONORRHOEAE 0 [facility] NEISSERIA GONORRHOEAE Not detected [facility] TRICHOMONAS VAGINALIS 0 [facility] TRICHOMONAS VAGINALIS Not detected [facility] GLUCOSE TOLERANCE 3 HOURon 1 10-11-2023 GLUCOSE TOLERANCE 3 HOUR mg/dL [facility] Comment on above: GLU FAST 83 (<95) Co l: 08/10/24 0708 GLU 1HR 131 (<180) Col: 08/10/24 0812 GLU 2HR 124 (<155) Col: 08/10/24 0912 GLU 3HR 95 (<140) Col: 08/10/24 1013 [facility] Urinalysis macro (dipstick) panel (U)on 08-08-2024 Bilirubin, UA Negative Negative - 4(70) +++ mg/dL [facility] Blood, UA Negative Negative - 50 Osvaldo/mcL [facility] Clarity, UA Clear [facility] Color, UA Yellow [facility] Glucose, UA Negative Negative - 1999(110) ++++ mg/dL [facility] Interpretation and review of laboratory results Normal [facility] Ketones, UA Negative Negative - 160(16) ++++ mg/dL [facility] Leukocytes, UA Negative Negative - 500+++ Edison/mcL [facility] Nitrite, UA Negative Negative - Positive [facility] pH, UA 5.5 5 - 9 [facility] Protein, UA Negative Negative - 2000(20) ++++ mg/dL [facility] Spec Grav, UA 1.02 1 - 1.03 [facility] Urobilinogen, UA 1.0 0.2 - 12 mg/dL [facility] GLUCOSE 1 HOURon 07-31-2024 Glucose [Mass/Vol] 132 mg/dL High NINF - 13 0 mg/dL [facility] Interpretation and review of laboratory results Abnormal [facility] Coding Summaryon 07-16-2024 Coding Summary HTMLBase 64 MialoziqXVw9sZe+PGhlYWQ +CY9TDAOyH80slMUruB0wE6 NMTElOSywgQVBQTElOSyIgb xVrEV4eeQYcMROq IC8+OS3wXCTySpreeWGio0L 7xLX4E04yry7mXYqljNU4XQ OiJqLlqokxn9kmzJn4NNpmK mluOyBt ZZVooQ37GMZ6qN65Fs49vXF cbFGjy2cgtOo5OiLiCHYeYF D6xFeyXNeki6HfSYCmQ76zp HFbc2C0 MTRqsRwvzIRkUyRkjNI9jE0 kYNpcmrlhk2ukciodQxz4yw 59nHVqa5I3mQN6Q4JysbK8M GJvbGQg XeekmDEMeB9jfhatk4lfjzv gJdIsOAWpROu2XYp9XUGfoL hiDxXbPC64YKO2GKVxjvErC 2FsLWFs qJtvRhZ5i4J7Vn4CL5WQMjn yK5PVJBWSAVravSR+PC90cj 44U2JgXgkzIel5YWVdGRI9p WG2yW3c RNYnHEolf4L8cVI1Q7JkoqH iox5he8siUZNfDAmsX16vpI Tue2D9AQNapQQ2FJKtmTccV iBzaG93 Oyc+YGHdgLuez8IaTxzjm4p ss1pdgEw3EkcnLQCgbgIrtZ lfZHU1j3DzFf8vQORjxUI1z NU8sY8j MqBbJqP3FIctU433ZeUzrEO uObkfY62sE2BscWL+PHRyPj c9DYVgkQalYF9iI8HzZMWcg mctbGVm fTwzOL0fOXRpboloOFUbkN6 wVGMoR6w5OaTzXaX8IKpkC8 KmGRGndbstOb78wK1uEpCoI yJ7WWto F2ZotkC4FNErgOPyXTsvKJL 0Y03he5T8ZGIiTKNsPNM1xJ W2wC3kiLmbvzmlrEXrnEdqf mVydGlj BKhaAUjsP981LRGjvRtwLaA vZGluZyBEYXRlOiAgMTEvMT EvMjAyNDwvdGQ+WQEaJAH7h WxlPSAn xNSiBUquRe8efDqoeXygKH5 nSIUmspgaHFZecW9jIQQfvW SxjTxjNX2yUFBxhloyn148N iAxMHB0 UDJklICdG3PpuJ4pEnMkYSE uYNKkQ8QdqNRzXZovA446DW gnEgL4ITCipzPmG6CrHJGuz WduOiB0 p8Y4Ar8Fi8WdgkrwZ5PfjET vUkNmXfefTCd9T0FgPnvpgB I+HS56VOBvIY08PXu5VJW8c WxlPSdi WEElQ6FusH2oPuSvSNWfIXJ kOyc+PHRhYmxlIHdpZHRoPS goQECaVvFxlQadEV8nMb1fT GVyLWNv xWmdePNiLtOzt9plGHQiFRg uGO2nqSseA3UdgDM4CJXll6 w7Bt33D47aZ9HrmNQ+PGNvb HV2nRE3 gW7zSsKeCcS8IOxtV608DeG doFCsWawot4wjq3naeEs7Pc N2IVUfjtZapKsfKLB5m1DtL p92H51b IHdpZHRoPSIxNSUiIHZhbGl omw9mpP7wBs7+VHCsbBY4fX T4xD7zGfNxAuM9ZQbuF374K nRvcCIv Ejhcm5qyy6mlbRn0YkPtGWN ttySwsRaqQKD5b4ArAp33Y3 YdpIcja8VlMwh1wo34cWPif 0W4iNB7 U3NoHQTpxngheTTghOjxIQ2 kOFCofrutAKMxtM1fWPUkE0 y0PlFiEfA2WYqsJ3QzouS2E GJvbGQg EICctSBFnP2ngbtyy0suaqk jHwHuQDRrRVb0EOr5UQEkjD lsGxKvJBN8ThG2ZXP8yVEhl F1cnOkp hdifsW2lYxm+XSH9oRHjmTE MND2nBqrrtQV+VYGwRKZ3zC dtUFoiUIYxjI1zISJlY6o1L iAwLjA1 EWavC6DxedB2TFHqoCFeYQM pkRPEiK8wogvxx8qcxsenLz HsKFHwNPi5IAv1JGAhnEizE iBsZWZ0 NqR2XNK7wOJyxX4szQnhgxm kbW8mTsz+YlpjtVdnGGG9WU x7L1AaNby4WYKmbQhaIN5yu GFkZGlu Ch9weUdphZxyEH1eNIQnqoh in519JbOxh0faEGHrqUUmRC kvRVP5K45vi2I2IODfRMWnV JE9fAU1 xV8aiHngwpuleFFpdJgajsM ksNnzPSviHHduO446MPMtuD oxUjIsLWi0I4PpZfp8MUHuf HrzON2n yGJeWRjtUy4hwWzgqJrcGB5 bALFarfpox397EqUrw3uzSY NhkPFrRLpyWIU3G32ex8T9V CMwMDAw EVS5gLX8nW3dpExzkchcoSA mdDsgdmVydGljYWwtYWxpZ2 53XAHhoVtuQhWshAo0M4TsY it3MWEy uDbdDF6miDErNXthQr6auTr qlUohOD3oGAHmjezjs113Ib Tuy6mqQEOlvVFdTMttYNI3X 55jf5L9 ETZmREFtGDL7zFN6qE7nqTh nbjogbGVmdDsgdmVydGljYW djALceP375FTXbtRfcLqHnn GllbnQg JZcfGNl5S5TaAasamDC+PC9 5HOSpUB08jCBlsCWpk7wfqO m5RtUmCGGkWQQ3aLleOXmuc 3JkZXIt K22nhFUqq8M3WUJujLbnmGJ oXyVmgOH8oA5vRAwrmbegk6 gwwnfiXbduf6rkdt24zN77V 29sIHdp ZHRoPSIzMCUiIHZhbGlnbj0 yiF7iWb4+SIJajCN6uQB7bN 1tONZxQbH6PPhlU313YbBdq CIvPjxj a4lpt6dpiNz8XxX3HTDncpI roJkySZA6a4AeIz51N33pUI dpZHRoPSIyMCUiIHZhbGlnb o0prQ6t Ii8+CGSbrDS2qZN0qY0rLqD wBfR4CXpyY659UmYrpXQvUi gfA39rB6LhoWS+ANEdTpf0I CBzdHls TK0ucGDtSSrtCv4rRMK1AkE pIhShXMexA7GpJLOxgolxrs ywsMR0YGWjRRCvzW23Rx6jd DogMTBw eOXCkO5mzrpkr9fdgvtzAxQ mBQXtJCf2XRf9NWNppYqvHd ZuWQX3HnR3UMJ6yFZvhI3eq Glnbjog iD1qP7JzOIIykuavQi73eW8 kCgRcLjB8VCxrZdy+Q1JBV0 ZPUkQsIEJSRUFOTkUgTUlDS EVMTEU8 Q4YgIrn4JOJhxYehFL6hqJR uAWlwSj5pqXwpfExvZZ9qNK WfktuiKCVrpH1fSRFnuTOrk PjwDS7y XXPuegdef927XwQtAQR2QAK fxAAuY4DjbX0lNiTuWTUoTP OuM6KjiPQhCNlhY358VFosD wP1LDIw wnCqG0TaFPIvxKlgUcH2t3J 6Rw6vOi7xHU2fRBl2CU75TC 27uPSop8N1tXI0D6AhBHHij mctcmln yJY4PEDhKUPhyN67tWPkRTk fJy3mz6P2b717QEDcIAYozG 68Xq8vpXsbAEBukEGOyX1zv grmz1vv ierlUqFeEYYhIFr1VSw5GRW qvYppJdCnTYN0CwZ1PEW2wK DpgA8ovCeusobbyB2sSea+M jYgWWVh zuM7V9DgZnm9GWTlaMsbBL0 heUWaZObsXk0biOkagUbfAP 9lQQVdirizYJXglQ6pCPNed HRvbTog AZ5aSJCmqexlv366IlTjUBX 3MPRzqMEzY9WslB1kQkKhET YaDWGrL6EthNGjVDcpY374Z GxlZnQ7 BSImisHrR7JbTRMcnRkrSdD 0u3K8Dy9YJJ5QAGZ8S4WlVm c7POQlpYlcOE9ixDGxTUgbY q2itDhn pXxuNL4wDYOlgzfsTQQgfF0 qRMWkhKBrjAruJO8wNCJxaa bey206PeEnQBI7MVWqxUTkF 0DhhM5q HjHlVITxWLPhG5VczHCwBJk kZ579XCmtWnP2KWHnbsZbU6 HfRSQfoHswRaI3l9B2Jf3ZF DwvdGQ+ MS73nf95N9JqQxypFnm6GNM oZWR9iPI7vC3uAJQgKLgbk6 L9bQJ8K3ZwuyRctg2xv6ggJ XBzZTog A47woNVsh2N0GAFhtUN1XLM ajEurWmBhdM06Ahd+PGNvbG iad0TjFddeh5ery7qfqEw1I jMwJSIg vqUptPeiKLM4e9DeQg66M92 sIHdpZHRoPSIzMCUiIHZhbG mpba6jeL0pYx7+VLZhpQP0f HK5vR3l HnEvSfT1RXztI661SxHzyXF sYlsuj5iby9sygQh7JfFqCY HxfuDltConOVW2j1YfZo64R 2NvbGdy x3TdMau4zw02oIOrq5E6qMJ 4M2SzWKOlgnnxnTUhrEivUF 7sVYJapdldQRRvtU9bOJDkK 5v5YxQd SvB8ZGeaU4RjcmF3XVCtbJV dIXPilECMnO9ewouff2vovu nzWkObWOQfQUx1WUf2OLJid WduOiBs OOQ2ThT8NDZ5uJBmuA6cqNl krqblnE1wLbt+PQo9j0gdlO GmHX9lyKE2AC53DT59tORhg 7H9cXY9 W4FdCEUjlhfjrwumlPW2JNA xXSEicH97Wk7wmGuxXh3lVI QjWUU4OGZtyERxO4SlrN8uW iAjMDAw VQGlB9EjwBWuOWgcS453LIq zPpO2XXFvxuZhF6YpWCGydW csWkG9v5L6My3HNS18SN70Q W83wLXa q1H8rKV5Y0SzCQYqmkpffab rhFB7WOKqGYBasA87Sa5icL wzAe8qBVNjJLK6DJLkzDUuN 8GuqQ0e QtCtWGNtMXOxM0VqlMUsDTf rO663XIlaEuN9IYJwhsTjE7 LfBAXhrYrtWxY7e6V9Gi3ET x52ES38 ON75jQDnv0E0pBV2Z3DqLLJ dadnsbahcdGK0UTTdQFRebV 05Nm9gmFsrXp4fTOGfUVE8K FRpbWVz D2LqfA1yVoWjFLVjLHMzZ8K hpBBcDArrQ256RKbbWrW2QA WdnbRqT1MlRPOfvShnXpK6y 4Z0Xp0K DLhnpmd5G8NbDdobfZC+PC9 3FJMeXY39xTMfnFDhs0wzxR o2DdFtIMCaTUD3bPsxZDbuj 3JkZXIt Y29 (more content not included)... Normal [facility] Urinalysis macro (dipstick) panel (U)on 07-10-2024 Bilirubin, UA Negative Negative - 4(70) +++ mg/dL [facility] Blood, UA Negative Negative - 50 Osvaldo/mcL [facility] Clarity, UA Clear [facility] Color, UA Yellow [facility] Glucose, UA Negative Negative - 1999(110) ++++ mg/dL [facility] Interpretation and review of laboratory results Abnormal [facility] Ketones, UA Negative Negative - 160(16) ++++ mg/dL [facility] Leukocytes, UA Positive Negative - 500+++ Edison/mcL [facility] Comment on above: small Nitrite, UA Negative Negative - Positive [facility] pH, UA 7 5 - 9 [facility] Protein, UA Negative Negative - 1999(20) ++++ mg/dL [facility] Spec Grav, UA 1.025 1 - 1.03 [facility] Urobilinogen, UA 1.0 0.2 - 12 mg/dL [facility] ED Clinical Summaryon 2023 ED Clinical Summary [facility] ? Urgent Care [address] [place], [place] [id number] Clinical Summary PERSON INFORMATION Name: SHERLY ASTUDILLO Age: 24 Years Sex: FEMALE : 2000 MRN: Acct#: Visit Reason: Vaginal discharge; VAGINAL ITCHING/DISCHARGE Arrival: 07/05/2024 10:15:34 Discharge: 07/05/2024 10:59:00 LOS: 000 00:44 Check In: 07/05/2024 10:15:34 Checkout: 07/05/2024 10:59:00 Address: [address] [place], [place] [id number] PCP: Radha Gomez MD PROVIDER INFORMATION Provider [...] Location: Home PATIENT EDUCATION INFORMATION Instructions: Vaginitis, Piiv-[id number] Follow-Up: With: Address: When: Radha Gomez [address] [place] [id number] Business (1) Within 5 to 7 days With: Address: When: [place] [address] Business (1) Within 1 to 2 days DIAGNOSIS: Vaginitis Patient Understands: Yes - Patient/family/caregive r verbalizes understanding of instructions given Comment: Normal [facility] ED Patient Summaryon 024 ED Patient Summary [facility] ? Urgent Care [address] [place], [place] [id number] PATIENT DISCHARGE INSTRUCTIONS Patient Information Name: SHERLY ASTUDILLO Age: 24 Years Date of : 2000 Reason For Visit: Vaginal discharge; VAGINAL ITCHING/DISCHARGE Arrival Time: 07/05/2024 10:15:34 Primary Care Physician: Radha Gomez MD Attending Physician: Spenser Fang Comment: Patient Education With: Address: When: Radha Gomez [address] [place] [id number] Business (1) Within 5 to 7 days With: Address: When: [place] [id number] Business (1) Within 1 to 2 days [...] and use condoms. General instructions ? Take xswn-gwm-sryncxw and prescription medicines only as told by [...] provider. Document Revised: 02/19/2021 Document Reviewed: 02/19/2021 [employer] Patient Education ? 2023 [employer] Medication Information: The exam and treatment you received today in the [facility] Emergency Department were for an urgent problem and are not intended as complete care. It is important for you to follow up with a doctor, nurse practitioner, or physician?s bilingual executive assistant for ongoing care. If your symptoms become worse or you do not improve as expected and you are unable to reach your usual health care provider, you should return to the Emergency Department, we are available 24 hours a day. For those (more content not included)... Normal [facility] Urgent Care Note- Provideron 07-05-2024 Urgent [...] History Medical history: Resolved Ankle fracture, left ([id number]): Resolved. 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 Surgical history: Cholecystectomy ([id number]).. Family history: Anxiety Father Sister Diabetes mellitus [...] doctor a (more content not included)... Normal [facility] [address] 024 Urgent Care Record [facility] ? Urgent Care [address] [place] [address] PATIENT DISCHARGE INSTRUCTIONS Patient Information Name: SHERLY ASTUDILLO Age: 24 Years Date of : 2000 Reason For Visit: Vaginal discharge; VAGINAL ITCHING/DISCHARGE Arrival Time: 07/05/2024 10:15:34 Primary Care Physician: Radha Gomez MD Attending Physician: Spenser Fang Comment: Visit Diagnosis: Diagnoses This Visit Vaginal discharge (897921439) Vaginitis (N76.0) If you received any narcotics, [...] documents With: Address: When: Radha Gomez [address] [place], [place] [id number] Business (1) Within 5 to 7 days With: Address: When: [place] [address] [place] [address] Business (1) Within 1 to 2 days Medication Information: The exam and treatment you received today in the [facility] Care were for an urgent problem and are not intended as complete care. It is important for you to follow up with a doctor, nurse practitioner, or physician?s bilingual executive assistant for ongoing care. If your symptoms [...] so we can reach you if necessary. [facility] has provided you with a complete list of medications post discharge. Please inform your molded goods controls operator/provider of your visit and for further instruction on these medications. Any specific questions regarding your chronic medications and dosages should be discussed with your primary care physician(s) and/or pharmacist. New Medications [facility] [id number], [address], [place] [id number], [phone] terconazole topical (terconazole 0.4% vaginal cream) 1 [...] Eating food (more content not included)... Normal [facility] ALL CBC WITH AUTO DIFFon BASOPHILS ABSOLUTE AUTO 0 [facility] Basophils/100 WBC (Bld) 0.3 % 0.2 - 2.0 % [facility] Eosinophils/100 WBC (Bld) 1.2 % 0.9 - 7.0 % [facility] Erythrocyte distribution width (RBC) [Ratio] 12.9 % 11.0 - 15.0 % [facility] Hematocrit (Bld) [Volume fraction] 40.3 % 36.0 - 48.0 % [facility] Hemoglobin (Bld) [Mass/Vol] 13.7 g/dL 12.0 - 16.0 g/dL [facility] IMMATURE GRANULOCYTES ABS AUTO 0.06 High [facility] Immature granulocytes/100 WBC (Bld) 0.5 % 0.0 - 0.5 % [facility] Interpretation and review of laboratory results Abnormal [facility] LYMPHOCYTES ABSOLUTE AUTO 2.5 [facility] Lymphocytes/100 WBC (Bld) 21.2 % 20.5 - 60.0 % [facility] MCH (RBC) [Entitic mass] 29 pg 26.7 - 34.0 pg [facility] MCHC (RBC) [Mass/Vol] 34 g/dL 29.9 - 35.2 g/dL [facility] MCV (RBC) [Entitic vol] 85.2 fL 81.0 - 99.0 fL [facility] MONOCYTES ABSOLUTE AUTO 0.4 [facility] Monocytes/100 WBC (Bld) 3.3 % 1.7 - 12.0 % [facility] NEUTROPHILS ABSOLUTE AUTO 8.7 High [facility] Neutrophils/100 WBC (Bld) 73.5 % 43.0 - 75.0 % [facility] Platelet mean volume (Bld) [Entitic vol] 9.5 fL 9.5 - 13.5 fL [facility] TBH EO # 0.1 [facility] TB PLT 378 [facility] RBC 4.73 [facility] WBC 11.8 High [facility] Outside Recordson 06-11-2024 Outside Records [id number] [facility] [id number] [facility] Coding Summaryon 06-08-2024 Coding Summary HTMLBase 64 XslodhonKTr6wVj+PGhlYWQ +QI6ORIAdJ45fvRPviL5mJ2 NMTElOSywgQVBQTElOSyIgb lTlCW9wzNBrLGCa IC8+IJ2oFHXmIndvvVEsp3D 5uLW5U70eid3pRDimfJT9HM NoBmBrmcocx1abgPk6WBczL mluOyBt HGEcoB24UOO9hF92Ry41vOP nnGNel9ghwPs1AnXhBGAgHQ R5qYrtCKypd7CkBMHwN51gr DRvk1N1 MMUtmNbckOKyBmWkvHV7tV8 pLXkmgqkan8ysfxkgAbh5ez 14lHLuw0D1dNA4A6WjimV1J GJvbGQg LswfaONAvZ1fnayco0euhfp qUpHaSKUmCWl1VFp6KGSwfZ irPkQhAK65AWN1HMAtkaHfA 2FsLWFs dJdlGyU7l9X1Al6IB8AKPoi oD8QCZDQTXPztgVA+PC90cj 47D6QhGhwkNhn9OZOwZTY6l GN1mW8k DPMcRRcpl8Q6lQN9V1YdjoM ksb4ct3bgDHOqBZjnH10lnQ Lxt2V1CNAbzPU2YKSeeLpjC iBzaG93 Oyc+MDFauTvpd5XgTkmhz9e mu2lkfMz5BctjHFVgedPdxI nqVEM1p5DcBx7gMUCunLB7a AY1oT0a DwHfPxE9PIekP537OqLcuAI zKblgC91bG3XtiBC+PHRyPj z2ZAVqpEmsGC5lX5LtMCCub mctbGVm bMnoIQ6eJGLqeqyuTYOqyM8 bUYPuI7y6EaYvXcE6IUygQ4 BmIXHqaqspSn84pK4vFvPjA sE4XKoh V4EoegC0RYLcbVDbNJajSPN 6B73fi1F6LBVqTAIpLTX3lO C7zN4btIiasndhzVWdmArxz mVydGlj HKhjUIukT912CSSuhGlzEsE vZGluZyBEYXRlOiAgMTAvMD QvMjAyNDwvdGQ+XEGaKDM0g WxlPSAn vWJoWAqrMl3arJfuoZsgFS2 cUGFmvxkwXIMpcO1iZKRwvW RwrMiqEZ4hUOHdcrcoe212L iAxMHB0 MULmoRHbU5IreG7jZkWhGSK aZLAaM0XcmTToKNpzF311NY oaNlT3QPTzujYgR4BwTXRvd WduOiB0 g2G4Tm5Dl4TjtxcxP0GnzDF pPoQbPobuZAi5V1RxLhwtrR I+JG98JKZnCK41PDd9POS6r WxlPSdi MCJwB4NgzU8rTkMhONPxHYM kOyc+PHRhYmxlIHdpZHRoPS wiZLBoIjSlsMgkFV2dYo4lY GVyLWNv jRwqgVWgYqIrp8laBRHqQAi ePR2lmMtmB2AshET6HNYgn8 j9In03R11xI3NhiBM+PGNvb TL9rOP0 nE8aSlAfVgS0HHgwD391EgN ewLTdOpnlx8rek5drjHm4Ce S4AQNtpqZcjMymJES8p1MtK r03E93m IHdpZHRoPSIxNSUiIHZhbGl eua0viW2qWb5+OIVaxOU2xQ R8fP7vXvXfXcV4EVohK917B nRvcCIv Qcihm5adz7gozTy8HvQdJCJ ccxHxiGxaWVH5r2LvBv77H3 OifLgwo5MhPce8xo47rKQcx 6P5hZT6 M1WsPXIsenipySSvhMgnIA2 bJNNzdqpdVZTamI0gLMRfL5 s7LzDsYfD3YKukN1KkbxD5C GJvbGQg PQKveRKYpX8mqltja4cbwwx jVcSjMBLyGSh7TUd6RFMuoN laQyGpUHT4SxZ9FNA0hJNef O6fsIhy nsvlnC1pCyl+POD8uWRqrNJ VJK7lBdgcjHB+GHLtHMQ9yW lkFFuiEHXbeY6pOQXeY9d3A iAwLjA1 UIkgO6KgbyG5TJNzlTHtXAG mfDVJwK4czmzgd5wyneqbFa FoDJDcDAl3ABq4EYSecPhzF iBsZWZ0 OuX6OGQ3nMAqsS5xuCezjxs rvS0sGpi+McjmiFujYZZ8WH h3Z5YuEka0UPHepWulAR9cl GFkZGlu Kl6noTrjyMbpIN8yFDYqjez we097TrKzw3ohWJFplRZzWD aeFHH4C16eg6M4PJUkSUYnG IJ6xSQ0 kR3rrGysdluwnRRwqRdeixC utXfgLQttAMzzX982ASMpqF ogMmWxYOt5Z0VqSgo0TLEhr PmmSX8d kITnQOksIu1hfHxokLzgIL0 uVMGkoldxp237DjGic6uzZZ SlmGPdXKdkTFB8E42ep0G9J CMwMDAw GZO2dZP9vG5guPtvpcjkzCK mdDsgdmVydGljYWwtYWxpZ2 46SPFwuMkwXmHcyJn0Q5RbM up4EKMa yHzqJJ9jlQGrEIbyLf4loPa ueLqnQP3aYLWocvxyn324Yq Cbo9orOCXhiFWmFGanFZL7X 21hd1Q1 MKNwTQKxXKH6aTV5cF5vwWe nbjogbGVmdDsgdmVydGljYW ufGBlaE397KFNhxXddPmQcg GllbnQg WRaiVXw9F3RhSgzlhLY+PC9 0SIAvNU28zSXkfIZzv4cmjU h4BnZlPKSzFFQ4bHnaMLkmu 3JkZXIt H84uzPOhc8K3EODyqQekbRE qZnLwnCO9sB6eGAperjvuj3 mtwfbvCmjkw1msry32vD07E 29sIHdp ZHRoPSIzMCUiIHZhbGlnbj0 bvR6pFm7+PERrcZB0gHO0iZ 9bBWEsOuR3LHpaF640HtZtl CIvPjxj r5aze8pmhGl6GiK0PPBfoaE tyEqkOMH3t8LtQo67R69sLM dpZHRoPSIyMCUiIHZhbGlnb s2mdZ7d Ii8+WSRfmWH9hTD0gV5eVeM mYeU4VSvsU534EwWeqWEgKl efD19cT8EleNC+KWWxQdc3B CBzdHls BM7mbOMvWRscFx7oKES0ZuV kRxTwQDdxE2UeIGManbyszd icyEI6IWSdYKNbvZ62Sp5wh DogMTBw bMJGsE8oripfr3sncarrFtW dXHFdBDo5KJf5DXJnnMklKm UaAHL1BsW4YER6uRWliB7yu Glnbjog bV0wB3LiHEEmrwrpWi82mX7 kZwDwTwV0BNucPcf+Q1JBV0 ZPUkQsIEJSRUFOTkUgTUlDS EVMTEU8 B6XkUmc1XZYvtZwuFS9xxZP mJUjkDl4sdBjppYbgIN8vDO BdirkqSFXukX0lQTZsxPGiy TkgRD3q ZRQmashxk036BkWoXDX0CMW omALqU2HgrZ5hKvLuPDMpJX CwM8HuiNMlXUamZ039CHfpX hU0RMJf nvFaT8YrDAIwxPxnHfJ6q1W 7Kb1pYf0iBD5hVPv4GR52VI 10bFJxj9C9cYF0S5GzKAJgp mctcmln rEZ9ANZmUCTiaD34fBBuUGd uOw3va6U4b111CPGqWLYwlZ 04Ax8wyHjqRNAreOHUgU3cx miec0cx weatQaZgDAVdFXo3OUo7RVL uhFnrBdYvFDU2MeP7NKZ6pD AobL5mgTdvvayycN4fBqw+M jYgWWVh szQ8R4UcLbv0OMNpmEerYT1 ppQMzUEvqZv5xmVpyrWulYQ 3qWMKeoewiKVWlrX4nXHDtg HRvbTog PG1xBELuuulfz774DwSxTOA 1KQVsfWWsP5CgcX6jGaOcZB GsRCDhG5NsuWSwLLxrI493H GxlZnQ7 IHOlbfUvK2FcDWQfhVnmJhC 4r3K5Lu3AHO7BQNW3A8JeZj x2WDGapPuaVI1ntLMuADcnC w3csYnd vVcgKK9wIYMfojokTVJagG9 uXVAfsJCgjVbuXZ0sURYaaj mze475QeTeYIU5KDPcgCKzO 5YoyY8r BkPyAQGvQJVsP6OeuVXuDKh dR875OWliFoT3RGOnvsKrH8 MxESApwIgmHiS5f5K6Tc0He DGrQ2Sk H3z5U1GvMrktySQ+FY58BUO vEO94bXHiwMIwf0oysQo3Jg RbAUGvUKN3wHnjQPptl3EbU GIdB63p lOQtp9K6CJJnwJeozKOqHbV qpTD3oV2tSQyorczfg2vhrn vvEgbpc7cavu47hP41O93fL HdpZHRo UZVgYSBjPKLmdWeixx4gaW3 wIi8+FCPvvEB8tRC9nH7gZq GyKmE4QRwkR020ViIukQXtH ppua8mc d7tubMj0XuLbZLCmwkZazCm qEWN6n3ZfMd47H06iIFpfFE FaPVTlWGLdBEPyrIswav8jo G9wIi8+ UZ9bu4zlki92dM78aFD+PHR cBVJ1yJomMUfcOUQjdM2vOH kkAcM6KIMvAoVwlT78sJGfQ TvsLh7f gHrubRomVO6lYUPzzripq74 5YoWbn6tjZIAxvLKaJUqiLM O2N17zd7S0IARwVMQwOOC7c FX8fO1p bGlnbjogbGVmdDsgdmVydGl fYBgcWAzfA590ETBuiTweXg AeqIJmL4rxoiOEKM0bByyah GQ+PHRk NUY8uXsiCDlfZHMfuV5wCEA oB6p9PhIrHkW2QCkmO0Dxhs N7ZHCllOWhXIPfsAOQzS8pa jjkx0mk jcxrUxFcDZLtJYw9AUj5ITT xlUwoKwOzSGE1HcA0NKZ2bR UonO4hsLvpchzcpD3fSqq+R klOOjwv dGQ+ROXwEBC3vUtcZUazAHL snY6sEXSsG1l6PtYmNmG3VP snH0XbhoT0UVUvlEAvOBRbp GAXlB3r kvthn6kwfjwqXgKlEQLlFMw 0WLg6ESJtrRkoAjFwYBE6Li M2RVT2fQEuwZ6wvGkjoocjy G9wOyc+ TVJOOjwvdGQ+QWNkXPP6vYo pPSviVITfxZ0nBRAzH7p3Lr SdOrQ5IXljD9WntyV6UJTso GQgMTBw fBQAsO4slhjcy7nupiixOoH pNMCnFGd4KNg2LUFdsFmzEg ZfQCW0FdA6SFQ0zIHvtS9sy Glnbjog qC8mYwu+AEY8HIU6ZF57NK8 8X3IrXbucmVZysTF+PHRhYm xlIHdpZHRoPScxMDAlJyBzd XhtIU3l Ym9 (more content not included)... Normal [facility] HCG ( test) Ql (U)o n 06-07-2024 Interpretation and review of laboratory results Abnormal [facility] Preg Test, Ur Positive [facility] Urinalysis macro (dipstick) panel (U)on 06-07-2024 Bilirubin, UA Negative Negative - 4(70) +++ mg/dL [facility] Blood, UA Negative Negative - 50 Osvaldo/mcL [facility] Clarity, UA Clear [facility] Color, UA Yellow [facility] Glucose, UA Negative Negative - 2000(110) ++++ mg/dL [facility] Interpretation and review of laboratory results Abnormal [facility] Ketones, UA Negative Negative - 160(16) ++++ mg/dL [facility] Leukocytes, UA Trace Negative - 500+++ Edison/mcL [facility] Nitrite, UA Negative Negative - Positive [facility] pH, UA 7.5 5 - 9 [facility] Protein, UA Negative Negative - 2000(20) ++++ mg/dL [facility] Spec Grav, UA 1.020 1 - 1.03 [facility] Urobilinogen, UA 0.2 0.2 - 12 mg/dL [facility] Coding Summaryon 06-05-2024 Coding Summary HTMLBase 64 ZqjwxcndINq9yXy+PGhlYWQ +DP3FHZLtV52hnCUosE1bW2 NMTElOSywgQVBQTElOSyIgb rYkGS6ugJNhFUVp IC8+GJ0jGHYmBlcyxLMkm3V 4mQC7S11ibl3uUZdkjFG0FX AjSpSwsejjb4hpuUr9SIyzG mluOyBt LYXpkE93HCK9wQ59Mz09sAE jyLLul8eenCy0ZfHmTVNgVX F2wVroQJeso6UnWUAuF73lk SHlz7M2 CJScrQapgTYiDnYqhYP0eE6 gVOpwdqpyh6bepqzbYmb3ba 98cVDss7U8pVR2J2CdewD2E GJvbGQg YbzljHEOeP0cngoym3ytixn wXzAwYZRwQPe2HOo7MIFjgY paCxTyZY93UWV0WSAzdySfS 2FsLWFs eVnyFoS7s7E7Gq2XN1YHOxs kG1CFOHDFNYnoqJQ+PC90cj 83S3GgFetzGkp8PBCxCIK0g MI7aC3g ZOXaFHlgn7Z8pNT0U4VdaqL reo3ko7wwFGVrMQevC13pmX Lbu8I4MPYcbTC3XFYqsYvyL iBzaG93 Oyc+WNBorCgbf7VyBhsjq3g wv4gfcTm3IvzsXZUlmqJftP joWCR4o3UrHi2wYEZoyRJ8p KL9hA6x LpJsGoY9RFjkB053DrNlxCV pLoxrP74gU2HcbZV+PHRyPj r4NIAoiXafOQ1yN4AaPUAby mctbGVm gUdrYZ2wENBxeptuZCAzhR1 wFOGzI4e7DlUyDvP8BPeyZ5 VvEOVkifclWw48zS8aRxAqZ xF3DTpl E8TmfdR7PLCapOHyYRdrWNS 6U13me4I2TAOpUGZqZRG4vD I1eY2znNcndqfgpUXgwIgjs mVydGlj FUdfZVtiC740YMLefWjmInD vZGluZyBEYXRlOiAgMTAvMD EvMjAyNDwvdGQ+YBDjRBK7t WxlPSAn aALgOBadVy6roRgaiAhuWX2 xPDUxigvdDAEpjM2lYNCdlF LboZmaHE3oBMPnvhmpo610J iAxMHB0 KLQbwLJnC9SzxQ3zNsBvHUX fQTBgB4MtjLLaCWkuZ351DF roQeZ4SJWckyVpM5HjRHKuz WduOiB0 y0P0Cl1Dw5AksnebK6DuiWR gVdMeXdodONu4L7CoNzdotQ I+TN64RJUwEX00QVj6MWM4b WxlPSdi MLQwN2OdlI8sFeCjCBQzAPH kOyc+PHRhYmxlIHdpZHRoPS pzWKPyWzAirJvzFX6cSo8kA GVyLWNv zJoduYOsPmXlf4vcXGSfVLk qAM3asMnwX7XjlYG1CMLps8 t6Yg25K18bD3QygDL+PGNvb ST9sDH4 xV6qTdGoBoX8IKoyX821VrN csFWiQiyiu4ijp3zgnUv8Jw B7DYOlauTxuWnlXPB0l0AsN n58V90b IHdpZHRoPSIxNSUiIHZhbGl fxl2blG5jKd5+UNDdbUI2pG P2lH6hNhSiLlW3ARoeH184D nRvcCIv Fquml9dub1neaYf7EtRcRPX huuNulGbiBAT1n6ShEv55M7 PlaMiwy9FyXfw4ai22nJOyv 1D1pMI3 M5KyJKEgfrinmRRozUljBL5 gSVKmtgbrZHMkrM3lTLTxH2 a6PkJxAiH2ISwoU1CxrsJ4Z GJvbGQg QPUbwZHPkE7xsujdx0fhfbt yUgKwFWTzWAt9RQo6BMNbkU siQcDeGWJ9ZgO5ZWM0gCVav D1roLni idgakT4kEpn+MFX2tOPxeED JMG9iZietvYC+TBRkPZC1cT toDPxlPYKwnG2sPAFoH3w2B iAwLjA1 JPelA7GnbmZ9FJGwiGStEWS haEBMpG4amrojk9wxedyvYo RsTVJwRQi7GGx2PMKgqWmhD iBsZWZ0 OtF4MIE6vRGjoD1qlBmkrdb jyM8tWra+UunukXliZNB6DD v3J0RsYta8UWZopYyeNT8vm GFkZGlu Eu2wcRqfiZioDR6yTFQvyww oa187BmEzb3nqOIDpuMTxOO keNSJ0E37lo5Z9STXeJXAvY JC1xBL1 fV2ddKllfgpikXTfjVdhmfJ tfGvsFUfwTKhoE145LTYpfM cuPjOfGWk7U9PbWmp9OIBjf IryJB8i pZBlPUgpDf9nsBxotFhwMI2 rXEVfhwjzh112JiRpd4bnLW RkiEHoLLouOIE0R12dg9E5Q CMwMDAw TME6eIK5tI8ckXzpceujaDN mdDsgdmVydGljYWwtYWxpZ2 99IXRxvYsrMaCrcDi8J6MjC zd8QTBn fSfkVS4dfGLgFQaqDj1ylTv ffNgxJB1dQZPmxmtbu324Xn Gnp1piXETalNCjWGraBQJ0I 54my9B2 GPMeHKQdBIZ2fMX9gN9ywKc nbjogbGVmdDsgdmVydGljYW ngFXdbM095EVUdiPnfVaTqb GllbnQg LPnkOLe7D4RnUuwsgNB+PC9 6VVDeFP62aVClkZIrx0ohkT c7WhKoTNWdAFB8dVhzGTbli 3JkZXIt P28muBJnq0B8BPMarSqzsZJ bTlCpsKQ9uS2oQTnkpeurf1 slywnjLlsog8koim96dB95N 29sIHdp ZHRoPSIzMCUiIHZhbGlnbj0 ifU4jNf1+KKCjtVQ5yMC5vI 2cUGQgXdO6PEoeF123CzVmt CIvPjxj s5yzp2ixvNc8OrC7GIYemwG cnHroOHA0a6YsCf87V69kPW dpZHRoPSIyMCUiIHZhbGlnb j4ceM9n Ii8+XOFjnUS5zXE9jG5rEwW gIbU3RTkkX316CxVyiWAjKl dkO98qL9ByjMP+NBLbJic0N CBzdHls RB3tzFCnFHwbVm8dGDK6ZgN bPnTmZBzgX1OwURCqiduyts fftRK1PCUpHVGcbR93Kk4qg DogMTBw xCPSbP4vvvegp5hxclhzFqA cZZGzNZf4QSp3BRShpDdeXd YrMNP3NbU5XXJ4iBPbdO6bw Glnbjog rG0yP8PjBDLppfhrOe00mD3 bAlQjXaA3LXypTaa+Q1JBV0 ZPUkQsIEJSRUFOTkUgTUlDS EVMTEU8 Y6UcJde6CKZpmCstAQ6xcIV cIOvwSd0bdZosrUcwXU8yHX FaapaxTJZkdG6oYYVqlLCtx UatNH4n INMgucayc741CsIuGDT0KIP dlATbH8XhkC8jEqHiPMNhOU QnT3IxsHBeTKsxU724BSlyK eN8VKHu muHaC1UdIYJtnSpfZnF4g0X 3Si4vQm4gLI2hEUy3PP19TH 75zPCus1Q3kCH7G4EpDHEjf mctcmln uXS1RSFdNFKotB88cDIcBNa dNg8vk4E1m110FLVrEDKgkO 53Jw3rcFusPWDplAKXfJ3sl gakd5mn iqgrPaRsHDTvKVm7MGo0JEY teYidPdAlFSX9GaD2UNQ9hX JijI2yzIuxfjkytY5wEck+M jYgWWVh ynJ5Z5EcYta8WHPjdTxtBJ7 nhCDmWBpmGh6ghCddgCpePS 5bESRubbouLNBcyF0bNXFmu HRvbTog QT3pDTZxismwz214XsScALY 2HADziMSvP6BsfY1nDdUlPW ClJFHiV6WqeQKkMIzuC290Y GxlZnQ7 RPEfngCvX9MsBSSobMmrQxT 3i2C7Nv5IKT7ATUP3Q9VoWp v9FQEfoHsvOR6hxSSzSLznD z3tjUrz aOufCE8pNWKysbtaJOCcpX0 zARGzhCOdhZjwLM6eSSLteo rcv251UjYmDFQ7YWGzzWVsL 4HjdT1q CfNkGLCfHWLyZ7HgoCVnSBl vD161RIfzKrL9WZByuuKwJ5 KaCGPupSdqUbH6i2V0Ul7YC DwvdGQ+ YU84uc38L9EvUxbtCsz3QDX dCIU2bCW3qQ4iPHCsKJpeh2 I8bIW8E2TkvnWofd2lt6xzM XBzZTog I35wzQRdy8H7VAZdkFP3NGU igHmySmNflZ65Zbl+PGNvbG gge5IxCsqvy3ybj8lvkQx6E jMwJSIg kyMsyRuoMPW8l5YrKx24F22 sIHdpZHRoPSIzMCUiIHZhbG fzvn0fhB5jFc8+LWAgiLF7j HF9sI0q EpUhUvO4JZfjU973UoGpxGL tRtyne7mfr4yvcYf1QjJqGX MhiwNmgDiePJP5r4KxJc62F 2NvbGdy q6RqCpq2iu10uNTdv1Y9nWV 5Z7JnTAIncapksPJooZftRO 6bCHEburebBVYvsE2eCOIoD 3u2QfQm GqF7TOlfQ6YughX7IVNzjWQ dVDAkoOBUmG5rsouzy6jusj jjFwQnHIRnFVf7RUf2FVVzr WduOiBs JAS6BxW3FHY4aTPrhV9ziVq hlzsxrU1bCya+WTz5u7jzwA VfBT0nwXO3BJ62QA39zVGvr 9R0aIH7 T5IiZXZdrjpinyhcdGX4KMM aYRSnaI11Xi1jfZagIj3gAA HjLTN1BIGojVRiV3RdyN4gF iAjMDAw UOIiV4YzgCUjOIiuJ651PGh yYlB1QBXakcYoI6GpAAVmvX rrIpW0o3A0Uh8JWB97DA88D O59xXHd h8C9eOF8D1AbVAOvgdlhqlp syOM6YFDoOLDmpW16Uk6tvB ubJr6bVSZmSSE5XAStyHLxC 0RmdH4u ZmRxXTQkVCSkJ8WfcEVhIOy sM790RLcvOqT0GPMgvuLbU2 XqUAKhgAbbKiQ4z8Q5Ci2OA a20BA07 AT35eJSto9Q3sMZ2H1ZaJVR itaxofwpwvJW4EDHzDPVnrQ 97Dx8leYfaPg6gVWOcLSB0H FRpbWVz C1MuzR2wVvZxNDVhHCXpU1Y drFAmQNebQ874XHafMnJ1SI SuldDkC7QqKLHphIxcOoG3v 6X7Ht2L YTxcppk0O0AxOcqcvDG+PC9 4VSKeHU29sMWrhBWcq8knnT a6MjEiDWUaLQX6vKtyWVoby 3JkZXIt Y29 (more content not included)... Normal [facility] Office/Clinic Noteon 024 Office/Clinic Note Patient: [...] 113.040 kg Body Mass Index 39.11 kg/m2 [place] Body Weight Calculated 61.437 kg BSA Measured 2.31 m2 General: Alert and oriented, No acute distress. Musculoskeletal: Positive point tenderness over the left gluteal region as compared to the right. Positive straight leg raise. Positive piriformis muscle sign with external rotation of the hip with adduction towards the opposite shoulder.. Impression and Plan Diagnosis Sciatica of left side ([id number]-QU M54.32). Plan: Discussed with patient stretches she can do to help with her sciatica. They were demonstrated in the office. Will hold off on any steroids.. Orders Orders Evaluation and Management: [id number] Office visit - established pt, Level 3 (Order): 06/01/2024 13:28 EDT, Qty: 1, Sciatica of left side. [Electronically Signed on: 06/01/2024 13:56 EDT] Radha Gomez MD [Verified on: 06/01/2024 13:56 EDT] Radha Gomez MD Normal [facility] .Auto Diff 1on 05-28-2024 Auto [place] % 5 % Normal 09-16 [facility] Comment on above: Performed By: #### 1 [id number], 6262557, [id number], [id number] ####[facility] (DEFAULT)[address] [place] [address] Baso Abs# 0.1 x10 Normal 0.0-0.2 [facility] Comment on above: Performed By: #### 1 [id number], 1537950, 2729248, [id number] ####[facility] (DEFAULT)[address] [place] [address] Basophils/100 WBC (Bld) 0.6 % Normal 0.2-2.0 [facility] Comment on above: Performed By: #### 1 [id number], 1026678, 6246825, [id number] ####[facility] (DEFAULT)[address] [place] [address] Eos Abs# 0.3 x10 Normal 0.0-0.4 [facility] Comment on above: Performed By: #### 1 [id number], 5679690, 1936738, [id number] ####[facility] (DEFAULT)[address] [place] [address] Eosinophils/100 WBC (Bld) 2.5 % Normal 0.9-4.0 [facility] Comment on above: Performed By: #### 1 [id number], 6056108, 8608246, [id number] ####[facility] (DEFAULT)[address] [place] [address] Lymph Abs# 3.6 x10 High 1.3-2.9 [facility] Comment on above: Performed By: #### 1 [id number], 9562895, 3791549, [id number] ####[facility] (DEFAULT)[address] [place] [address] Lymphocytes/100 WBC (Bld) 27 % Normal 14-48 [facility] Comment on above: Performed By: #### 1 [id number], 9099513, 7786580, [id number] ####[facility] (DEFAULT)[address] [place] [address] [place] Abs# 0.7 x10 Normal 0.0-0.8 [facility] Comment on above: Performed By: #### 1 [id number], 6167608, 8080227, [id number] ####[facility] (DEFAULT)[address] [place] [address] Neut Abs# 8.4 x10 Normal 1.5-9.2 [facility] Comment on above: Performed By: #### 1 [id number], 5715760, 9683272, [id number] ####[facility] (DEFAULT)[address] [place] [address] Neutrophils/100 WBC (Bld) 64 % Normal 44-88 [facility] Comment on above: Performed By: #### 1 [id number], 9674080, 0992598, [id number] ####[facility] (DEFAULT)[address] [place] [address] CBC w/ Auto Diffon 4 Man Diff? Auto Invalid Interpretation Code [facility] Comment on above: Performed By: #### 1 [id number], 0130905, 8212735, [id number] ####[facility] (DEFAULT)[address] [place] [address] Erythrocyte distribution width (RBC) [Ratio] 13.6 % Normal 11.5-15.0 [facility] Comment on above: Performed By: #### 1 8761015, 3318836, 4511783, [id number] ####[facility] (DEFAULT)[address] [place] [address] Hematocrit (Bld) [Volume fraction] 42.0 % High 33.7-40.4 [facility] Comment on above: Performed By: #### 1 8491438, 8577822, 7473057, [id number] ####[facility] (DEFAULT)[address] [place] [address] Hemoglobin (Bld) [Mass/Vol] 13.8 g/dL Normal 11.3-15.9 [facility] Comment on above: Performed By: #### 1 [id number], 3265326, 9100638, [id number] ####[facility] (DEFAULT)[address] [place] [address] MCH (RBC) [Entitic mass] 28 pg Normal 24-34 [facility] Comment on above: Performed By: #### 1 [id number], 0481092, 5850708, [id number] ####[facility] (DEFAULT)[address] [place] [address] MCHC (RBC) [Mass/Vol] 33 g/dL Normal 26-37 [facility] Comment on above: Performed By: #### 1 3291333, 6303550, 4700558, [id number] ####[facility] (DEFAULT)[address] [place] [address] MCV (RBC) [Entitic vol] 86 fL Normal 81-100 [facility] Comment on above: Performed By: #### 1 4674915, 0494814, 5206053, [id number] ####[facility] (DEFAULT)[address] [place] [address] Platelet 352 x10 Normal 138-427 [facility] Comment on above: Performed By: #### 1 9589362, 7439501, 1623559, [id number] ####[facility] (DEFAULT)[address] [place] [address] Platelet mean volume (Bld) [Entitic vol] 7.8 fL Normal 6.3-10.2 [facility] Comment on above: Performed By: #### 1 1628343, 5807432, 1590913, [id number] ####[facility] (DEFAULT)[address] [place] [address] RBC 4.90 x10 Normal 3.70-5.30 [facility] Comment on above: Performed By: #### 1 4360502, 7098152, 9998294, [id number] ####[facility] (DEFAULT)[address] [place] [address] WBC 13.1 x10 High 3.5-10.5 [facility] Comment on above: Performed By: #### 1 8668444, 9275737, 6561496, [id number] ####[facility] (DEFAULT)[address] [place] [address] CMP Standardon 05-28-2024 eGFR Non AA >60 Invalid Interpretation Code [facility] Comment on above: Performed By: #### 1 5292839, 6162240, 5984229, [id number] ####[facility] (DEFAULT)[address] [place] [address] eGFR AA >60 Invalid Interpretation Code [facility] Comment on above: Performed By: #### 1 4413668, 3618325, 4746055, [id number] ####[facility] (DEFAULT)[address] [place] [address] Albumin [Mass/Vol] 4.4 g/dL Normal 3.5-5.0 [facility] Comment on above: Performed By: #### 1 0978087, 9948673, 8229200, [id number] ####[facility] (DEFAULT)[address] [place] [address] Albumin/Globulin [Mass ratio] 1.2 {ratio} Low 1.4-2.6 [facility] Comment on above: Performed By: #### 1 4736034, 6542510, 9845283, [id number] ####[facility] (DEFAULT)[address] [place] [address] Alk Phos 46 IU/L Normal 32-91 [facility] Comment on above: Performed By: #### 1 3506008, 9453955, 9627586, [id number] ####[facility] (DEFAULT)[address] [place] [address] ALT [Catalytic activity/Vol] 29.0 U/L Normal 14.0-54.0 [facility] Comment on above: Performed By: #### 1 4494366, 0600372, 3565967, [id number] ####[facility] (DEFAULT)[address] [place] [address] Anion gap [Moles/Vol] 11.4 mmol/L Normal 5.0-19.0 [facility] Comment on above: Performed By: #### 1 9159429, 4832930, 5659318, [id number] ####[facility] (DEFAULT)[address] [place] [address] AST [Catalytic activity/Vol] 30 U/L Normal 15-41 [facility] Comment on above: Performed By: #### 1 [id number], 6095037, 2549044, [id number] ####[facility] (DEFAULT)[address] [place] [address] Bili Total 0.4 mg/dL Normal 0.3-1.2 [facility] Comment on above: Performed By: #### 1 [id number], [id number], [id number], [id number] ####[facility] (DEFAULT)[address] [place] [address] 24830 Calcium [Mass/Vol] 8.9 mg/dL Normal 8.9-10.3 [facility] Comment on above: Performed By: #### 1 [id number], 4034916, 7919232, [id number] ####[facility] (DEFAULT)[address] [place] [address] 40094 Chloride [Moles/Vol] 104 mmol/L Normal 101-111 [facility] Comment on above: Performed By: #### 1 [id number], 5718093, [id number], [id number] ####[facility] (DEFAULT)[address] [place] [address] 59399 CO2 [Moles/Vol] 20 mmol/L Low 21-32 [facility] Comment on above: Performed By: #### 1 [id number], 3298476, 7180576, [id number] ####[facility] (DEFAULT)[address] [place] [address] 89488 Creatinine [Mass/Vol] 0.66 mg/dL Normal 0.60-1.30 [facility] Comment on above: Performed By: #### 1 [id number], 3037593, 8375001, [id number] ####[facility] (DEFAULT)[address] [place] [address] 67770 Globulin (S) [Mass/Vol] 3.5 g/dL Normal 1.5-4.3 [facility] Comment on above: Performed By: #### 1 [id number], 3420886, 7278386, [id number] ####[facility] (DEFAULT)[address] [place] [address] 01420 Glucose [Mass/Vol] 100.0 mg/dL Normal 74.0-118.0 [facility] Comment on above: Performed By: #### 1 [id number], 0567811, 4701602, [id number] ####[facility] (DEFAULT)[address] [place] [address] 43774 Osmolality 263 mOsm/L Invalid Interpretation Code [facility] Comment on above: Performed By: #### 1 [id number], 0843553, 2454807, [id number] ####[facility] (DEFAULT)[address] [place] [address] 06579 Potassium [Moles/Vol] 3.4 mmol/L Low 3.6-5.1 [facility] Comment on above: Performed By: #### 1 [id number], 9367360, 9982434, [id number] ####[facility] (DEFAULT)[address] [place] [address] 05316 Protein [Mass/Vol] 7.9 g/dL Normal 6.5-8.1 [facility] Comment on above: Performed By: #### 1 3860070, 6880074, 0207205, [id number] ####[facility] (DEFAULT)[address] [place] [address] 02095 Sodium [Moles/Vol] 132.0 mmol/L Low 136.0-144.0 [facility] Comment on above: Performed By: #### 1 [id number], 4093498, 0674253, [id number] ####[facility] (DEFAULT)[address] [place] [address] 59377 Urea nitrogen [Mass/Vol] 9 mg/dL Normal 8-26 [facility] Comment on above: Performed By: #### 1 [id number], 9246226, 1735699, [id number] ####[facility] (DEFAULT)[address] [place] [address] 06158 Urea nitrogen/Creatinine [Mass ratio] 13.6 mg/mg Normal 4.6-16.2 [facility] Comment on above: Performed By: #### 1 4870105, 9660785, 2727907, [id number] ####[facility] (DEFAULT)[address] [place] [address] 77705 ED Clinical Summaryon 2023 ED Clinical Summary [facility] - Emergency Department [address] [place] [address] 03453 ED Clinical Summary PERSON INFORMATION Name: SHERLY ASTUDILLO Age: 24 Years Sex: FEMALE : 2000 MRN: Acct#: Visit Reason: Back pain; Abdominal pain - ; ABD PAIN LT SIDE, LT LEG NUMB Arrival: 05/28/2024 14:14:57 Discharge: 05/28/2024 17:55:00 LOS: 000 03:41 Check In: 05/28/2024 14:14:57 Checkout:05/28/2024 17:55:00 Address: [address] [place] [address] PCP: Radha Gomez MD PROVIDER INFORMATION Provider [...] Home PATIENT EDUCATION INFORMATION Instructions: Muscle Strain, Jdwz-zl-Hlrk; Sciatica, Zrom-qk-Nxyx; Back Exercises, Wliv-hf-Clbx Follow-Up: With: Address: When: Jason MCNEAL, Radha Santo [address] [place] [address]86 Within 3 to 5 days DIAGNOSIS: 1:6 weeks gestation of ; 2:Low back pain with left-sided sciatica; 3:Pain in the side Patient Understands: Yes - Patient/family/caregive r verbalizes understanding of instructions given Comment: Normal [facility] ED Clinical Summary [facility] ? Urgent Care [address] [place] [address]26 Clinical Summary PERSON INFORMATION Name: SHERLY ASTUDILLO Age: 24 Years Sex: FEMALE : 2000 MRN: Acct#: Visit Reason: UC - Abdominal Pain; LT SIDE PAIN, LEG PAIN Arrival: 05/28/2024 14:07:02 Discharge: 05/28/2024 14:10:00 LOS: 000 00:03 Check In: 05/28/2024 14:07:02 Checkout: 05/28/2024 14:10:00 Address: [address] [place] [address] 93753 PCP: Radha Gomez MD PROVIDER INFORMATION Provider [...] [facility] Note-Nursingon 05-28-2024 ED Note-Nursing Groover And Striper Operator at bedside wh ile US was performed. pt tolerated well [facility] [...] Pt is A/Ox4 call light within reach [facility] ED Patient Summaryon 024 ED Patient Summary [facility] - Emergency Department [address] [place], [place] [id number] PATIENT DISCHARGE INSTRUCTIONS Patient Information Name: SHERLY ASTUDILLO Age: 24 Years Date of : 2000 [facility]: [id number] Reason For Visit: Back pain; Abdominal pain - ; ABD PAIN LT SIDE, LT LEG NUMB Arrival Time: 05/28/2024 14:14:57 Primary Care Physician: Radha Gomez MD Attending Physician: Pam Gao MD Comment: Visit Diagnosis: Diagnoses This Visit 6 weeks gestation of (Z3A.01) Abdominal pain - ([id number]) Back pain ([id number]) Low back pain with left-sided sciatica (M54.42) Pain in the side (R10.9) The Pharmacy at [facility] is open Tuesday through Tuesday from 9A [...] and/or drug addiction problems; contact the [facility] 28/03 Crisis Hotline -Text 8GMHN cx [phone]. If you received any narcotics, sedation, or [...] With: Address: When: Jason MCNEAL, Radha Santo [address] [place] [address] 43452 Within 3 to 5 days Medication Information: The exam and treatment you received today in the [facility] Emergency Department were for an urgent problem and are not intended as complete care. It is important for you to follow up with a doctor, nurse practitioner, or physician?s bilingual executive assistant for ongoing care. If your symptoms [...] so we can reach you if necessary. [facility] Emergency Department has provided you with a complete list of medications post discharge. Please inform your molded goods controls operator/provider of your visit and for further [...] can happen (more content not included)... Normal [facility] ED Patient Summary [facility] ? Urgent Care [address] [place] [address] PATIENT DISCHARGE INSTRUCTIONS Patient Information Name: SHERLY ASTUDILLO Age: 24 Years Date of : 2000 Reason For Visit: UC - Abdominal Pain; LT SIDE PAIN, LEG PAIN Arrival Time: 05/28/2024 14:07:02 Primary Care Physician: Radha Gomez MD Attending Physician: Spenser Fang Comment: Patient Education Medication Information: The exam and treatment you received today in the [facility] Emergency Department were for an urgent problem and are not intended as complete care. It is important for you to follow up with a doctor, nurse practitioner, or physician?s bilingual executive assistant for ongoing care. If your symptoms [...] so we can reach you if necessary. [facility] Emergency Department has provided you with a complete list of medications post discharge. Please inform your molded goods controls operator/provider of your visit and for further [...] (R10.9) Currently (Z34.90) UC - Abdominal Pain ([id number]) If you received any narcotics, sedation, or [...] Disease Control and Prevention May 2014 Normal [facility] Lactic Acidon 05-28-2024 Lactic Acid 9.1 mg/dL Normal 4.5-19.8 [facility] Comment on above: Performed By: #### 2 [id number] #### [facility] (DEFAULT) [address] [place] [address] UA Fkulj3zs 05-28-2024 UA Bacteria Trace [facility] Comment on above: Order Comment: Urina lysis Microscopic order added on by Discern Expert Rules system. Performed By: #### 5 [id number], [id number] #### [facility] (DEFAULT) [address] [place] [address] 61215 UA RBC None Seen [facility] Comment on above: Order Comment: Urina lysis Microscopic order added on by Discern Expert Rules system. Performed By: #### 5 [id number], [id number] #### [facility] (DEFAULT) [address] [place] [address] 32121 UA Squam Epi Moderate [facility] Comment on above: Order Comment: Urina lysis Microscopic order added on by What's More Alive Than You Expert Rules system. Performed By: #### 5 [id number], [id number] #### [facility] (DEFAULT) [address] [place] [address] 37579 UA WBC 0-2 [facility] Comment on above: Order Comment: Urina lysis Microscopic order added on by [employer] More Al[employer] Than [employer] Expert Rules system. Performed By: #### 5 [id number], [id number] #### [facility] (DEFAULT) [address] [place] [address] UA w Culture if Ind Standard on 05-28-2024 Breakpoint UA [facility] Comment on above: Performed By: #### 5 [id number], [id number] #### [facility] (DEFAULT) [address] [place] [address] 08623 Color (U) Straw Normal [facility] Comment on above: Performed By: #### 5 [id number], [id number] #### [facility] (DEFAULT) [address] [place] [address] 93530 Culture? Not Indicated Invalid Interpretation Code [facility] Comment on above: Result Comment: Resu lt created by rule GL_MAGR_ADD_UA_CULT Result created by rule GL_MAGR_ADD_UA_CULT Performed By: #### 5 [id number], [id number] #### [facility] (DEFAULT) [address] [place] [address] 51995 Glucose (U) [Mass/Vol] Negative Normal [facility] Comment on above: Performed By: #### 5 [id number], [id number] #### [facility] (DEFAULT) [address] [place] [address] Ketones Ql (U) Negative Normal [facility] Comment on above: Performed By: #### 5 [id number], [id number] #### [facility] (DEFAULT) [address] [place] [address] Micro? Indicated Invalid Interpretation Code [facility] Comment on above: Result Comment: Resu lt created by rule GL_MAGR_ADD_UA_MICRO Performed By: #### 5 [id number], [id number] #### [facility] (DEFAULT) [address] [place] [address] UA Bilirubin Negative Normal [facility] Comment on above: Performed By: #### 5 5854981, [id number] #### [facility] (DEFAULT) [address] [place] [address] UA Blood Negative Normal NEGATIVE [facility] Comment on above: Performed By: #### 5 [id number], [id number] #### [facility] (DEFAULT) [address] [place] [address] 77005 UA Clarity SL CLOUDY Abnormal CLEAR [facility] Comment on above: Performed By: #### 5 [id number], [id number] #### [facility] (DEFAULT) [address] [place] [address] 96520 UA Leuk Est SMALL Abnormal NEGATIVE [facility] Comment on above: Performed By: #### 5 [id number], [id number] #### [facility] (DEFAULT) [address] [place] [address] 40376 UA Nitrite Negative Normal NEGATIVE [facility] Comment on above: Performed By: #### 5 [id number], [id number] #### [facility] (DEFAULT) [address] [place] [address] 60017 UA pH 6.0 Normal 5-8 [facility] Comment on above: Performed By: #### 5 [id number], [id number] #### [facility] (DEFAULT) [address] [place] [address] UA Protein Negative Normal NEGATIVE [facility] Comment on above: Performed By: #### 5 [id number], [id number] #### [facility] (DEFAULT) [address] [place] [address] 04290 UA Spec Grav 1.010 Normal 1.001-1.035 [facility] Comment on above: Performed By: #### 5 5856661, [id number] #### [facility] (DEFAULT) [address] [place] [address] UA Urobilinogen 0.2 mg/dL Normal 0.2-1.0 [facility] Comment on above: Performed By: #### 5 [id number], [id number] #### [facility] (DEFAULT) [address] [place] [address] Urine Source Clean Catch Normal [facility] Comment on above: Performed By: #### 5 [id number], [id number] #### [facility] (DEFAULT) [address] [place] [address] US 1st Trimesteron 05-28-2024 US 1st Trimester [...] Yeh MD 05/28/24 7:34 pm Technologist: PM [facility] US Transvaginalon 05-28-2024 US Transvaginal EXAM: [...] MD 05/28/24 7:34 pm Technologist: [facility] Note- Provideron 05-28-2024 Urgent [...] History Medical history: Resolved Ankle fracture, left (97902456): Resolved. 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 Surgical history: Cholecystectomy (75625485).. Family history: Anxiety Father Sister Diabetes mellitus [...] Diagnosis Abdominal pain, acute, left upper quadrant (XAG20-IU R10.12, Discharge, Medical) Acute left flank pain (JOH56-WH R10.9, Discharge, Medical) Currently (OAD47-MM Z34.90, Discharge, Medical) Plan Condition: Stable, Guarded. 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 Stick Worker Authentication Interface Message Text Attestation signed by [...] [facility] PATIENT VISIT CHIEF COMPLAINT: Toothache and Hagerman Teeth HISTORY OF PRESENT ILLNESS: 24-year-old female [...] canal DIAGNOSIS: Abnormal tooth eruption (Primary Diagnosis) [[id number]] Impacted third molar tooth [[id number]] Caries, Impacted wisdom teeth, and Retained dental root ASSESSMENT: #1 Caries #16 Caries #17 and #32, Partial bony Impaction with pericoronitis PLAN: Surgical extractions #'s 17, 32, Extractions #'s 1, 16, and with local anesthesia Pavan Lee DMD, MD Normal [facility] Worker Authentication Interface Message Text Normal [facility] Coding Summaryon 03-28-2024 Coding Summary HTMLBase 64 RisnbmuzTRw3bFz+PGhlYWQ +CX7YREQjK39jbFSjkJ5dN0 NMTElOSywgQVBQTElOSyIgb lCyRM9mlPCtPMXl IC8+RG9zQFOxNmzbrSFhm2H 8pQF0J52pgc9xHMklcCQ2CX EyWdUploevp7rrtYa6EWqxG mluOyBt EYJdtC16UKN5yA22Rq04aEY abTBxz2qwbSg3GfKaQDYnMU Q7hNpkFCxcu8QrHXCjY63er MXqe6T3 VFNskHsqeISaBlZwyBP2oQ6 hBEwvkhqhv3pcpmzfNvn3cd 67mNEst4I7rMZ0V3JltyF7K GJvbGQg LzknjPJCjJ0ycfgql1jtghn hQlOjEVJmMPn2ZUq5UXHbeT xnDdTgOQ05POO7QRMxmnOdH 2FsLWFs mIfpEzA8l3E9Nd9KX8SRCem wP3TRXSBCJDkfiCT+PC90cj 61M2JxNekqOpc9ILUiOTK7r GW8wQ4e VUUgVUjte5M5eGO9N0ItcdU huj3gd7btEEVbGLjlO75qzI Xco4Z7PWHzfTS6AFQyaGvaL iBzaG93 Oyc+DVPiwQree6NlFaosw1u km5fmtHn5QnyhAJQtjaYmzQ seRQL3i0FsIq6sLQBmjTK5k PN2uS1n CyHvEqB3EByvF248EoKbwRL qQxmyJ26lN9JofHL+PHRyPj t1YXEcxYibXP9zB8DgDKFeu mctbGVm aPdpWV9gFZDakapaHREftZ6 eNTMrU7v2YhLhToB2TOxtI0 QoRZXxrldyNg11sV9aFwEmQ nW4LMbv P4DbukM7IAMfwHHcFEptFUS 2O55hm5P7CXQmQTTwSIQ3gR A9aO6bpLdgxfycxDUxgRhow mVydGlj ZDizLNzlH685BEJoqTfxQcN vZGluZyBEYXRlOiAgMDcvMj QvMjAyNDwvdGQ+TUPpRNO0m WxlPSAn gAFpWXgxTu0fnMwaoPhmWQ0 pBQApwmusOZHinT2gNAMtjE JrvFavIO5rMBKvyihby056C iAxMHB0 HWQgyJXqQ0GqfU7pPeLoVCO eVXLcU9ZgrVIrBJytK482RS wtGwC7LQYoooYcH3DpBCWmg WduOiB0 g9I1Bc1Nb6AsfhosI1HchLG oMzVpHpowQPa6O3HcFqvhnP I+RS56NTMoPK56EFx7OGK0x WxlPSdi JPOqG5UvzX5dGjUxHTLrCQW kOyc+PHRhYmxlIHdpZHRoPS ytBDLuXaPciBdpNO9wKv4qK GVyLWNv yWlwySFhXsDit3zsNDWvUDg tDZ1kfViuX2PyfKW3LLAou8 k3Jy16W26nM9RjkWS+PGNvb NK4hWL2 oK7lJvEqWhI2MTgvQ538ZnK zgHWbUnuor3uyl5hihEx3Qu Q6MXIxeyVatIlzGMR2r3IiD d34W25u IHdpZHRoPSIxNSUiIHZhbGl vfa6fuJ5hAv2+EUBwaYN6rW N1cD3bMmDaHzP8CPzeQ297B nRvcCIv Knvnb7qhw6sqfLb3IwZbJBZ vweDujNixRNJ0b2UhYr37G4 YyyXxoo8UiAju9ft59tQItr 0A6xHU2 S2WzXMNdcusieEBvpXyoCM3 uQHSlzmceKDFyqP1dHQDyI4 o5JqQuEqU0GGrdD1AfmlO2I GJvbGQg BQNljMOFbJ3cegvrg6watsk yYpYcYJQwHFo2WYa2OYJyzE lgCbCuTRY6GgM3JTK6oRLgo G0jnCug ppoasR9iXil+MNX7oFFkoGW MOT0tJeimdFA+DQJvROY6hR ufYHwrDBYsaR2wITRkP7z9O iAwLjA1 HEpdN2XrzaG1IYAtqQJhNKN waTVRoP2chfzko4hqoppdHz BqZYBdQOz1UUi4FQWecGehW iBsZWZ0 HxP6VMS2cVEfbL5wuKrvnvp xbZ0iJhu+UryerUdcCEO5VJ g0S5ZsVoj6JMQivZukQN6fr GFkZGlu Yf4idBjfrGmtEU1yAAJwrpj ai560FuIhy8qqVINfnQDtYJ unAFI0J24gb2B2KNWoOHUbY WB4tRW5 cZ1xaJjorqeztIBtkKaozoI ciCusGVkaDWrfR789IVTnxQ ynCbTtUKi0G0IzExb2UZBkj EliPD2j jSLiLXbwTw9ilPyzlWtyOH7 gHQZuakfbu745IjLme5naYX YffUOpLIvjTCS6Y65pj7X1E CMwMDAw SZT6eGM8lD4zuRzxkuiajPI mdDsgdmVydGljYWwtYWxpZ2 02ZBUhhFtdJdTktBv9W8OuO ru2BWGa xAglSQ6rsDNkTBuyKm3qhYc qwWmuGH1rRCVfmmfrp425Zf Dwz9tkDZDszSRsEBdtCPK8J 54ra7V5 XGPjGBDpZIL7fEU1dV2qvRw nbjogbGVmdDsgdmVydGljYW wuWDciS966KKSfwKsoUiZbe GllbnQg SEkuIVj7M1TrCiyevUQ+PC9 7LFZsWS29oHIsbCVdo2indE i0VhBnRPDwMUC1bBelYRskq 3JkZXIt O01uuZLsi7A3AVMzoUvnrSG yTsDcpOS8xL3xHEcvpqozu3 vfoenkPhlzj4qful66sU54M 29sIHdp ZHRoPSIzMCUiIHZhbGlnbj0 dyY8hQl5+SQWzxQM8dHP6sY 9kURUqImQ0DKbnY118WnKun CIvPjxj i1wpg3nvsCm1BpM3HXZnnqL plYtpQVZ6d8HaDi82B41fEQ dpZHRoPSIyMCUiIHZhbGlnb u5hqF1z Ii8+MNMlgEA1iHZ5pS7yEzW jIuM9ZJbaY116MeVlcHRdRs kxX44kC1BvoLM+KELlJky3M CBzdHls KO3wgRFlKMdrHi8gIUM0LsI aEqJeRDgkT3RxKFUxuksejt hmzSM0GIXhKORwtJ60Uz1pu DogMTBw wWKZmA3pvcctq5nqzbnqMkY nRBKqQHw2OFn9FRNogZrfSn BnSMS5PsD2BPO6cGHdtE0xd Glnbjog sG3vY4PdXJPoijisXe17dE4 yHdAqHdK0HRhtYfg+Q1JBV0 ZPUkQsIEJSRUFOTkUgTUlDS EVMTEU8 F2XfJhc0SWUzlUcjBA6qxRV mQLogDm6qiLbksZooKK2nQD PrfizpIKVcuG7iFNXisIXry DwnEU6n IZHyoyvlc361KtBeHQQ5PMO alJBjA8VciP8aZoSxYXNiWA MuX8KqvCOmKQuwC714URoyE oV8DUNq qoIyC6OnIOLxjKcsKsV9v1R 5Cb8fNz4vPP1sYLb4WO42HQ 15rDZfz1A6lRD6O3QvYAQlf mctcmln oLG9KSVlDRXkiL70sHTrSJj bYr7hq0M9e185PQPnGHNraH 33Sj8hhMlySTOvdTFUrI4gy nmiz1kj xtxxEpFkCSYwQEt0RJh0ITS atDgjAxWdWHW7IgM2AKB0pQ EcnJ9ovYajcbpcdK1bBzv+M jYgWWVh ghI5U6AnJme6ABDhxZjtNV2 xpQLcVNftQv0edCmjjIvmOM 6jTESdmxnsKYDtxR7bODGwj HRvbTog RM6zAYPyiymcb070YuFoGXK 5MDEesHRkU8VdaM8wBiIaHL RmHQXgU2BmfXYfXRqnB035R GxlZnQ7 KJJippQkX7SlQIWmuXgkJmX 6h5T0Im3JHK1MYYV3Q4MqOu x9PVWksTulIU3eiCDzINimN u0haKit pCodNX0vSFVevmvmXZDahV1 xOQCheBUcwYgyJJ9mFJRsxg img437NjSaUZT1HVLnqTZlA 7AidB9j VxZiCLSvUDKqH4ShyIApGMb aU960YPujTmU9IDYhqyOoX2 OzNIUniAhcIgH4x9I1Hg3TA DwvdGQ+ BF46bh62R9BpXgzdNqi6PYY jGBO2pFA4uP8zRTWxYUfvp0 Z9mOL2L3RkpmVrid5os1cwV XBzZTog V78wnGJoq2O2KVUvpQN5JOW csMfrYfAvkT40Kkd+PGNvbG cub0VqAcywn4nwc7irgZl6W jMwJSIg mtRizYniDHA6c7QbHk05Z30 sIHdpZHRoPSIzMCUiIHZhbG senj3lpH2dKl6+ZZAtcUD9l EI8eY0l UhHjIeN7IGvcH004ZuMqaKW mVwhpl5gps5fcrCk0TcDiAU CiwjEcrWvxGDZ0n9AgGf61E 2NvbGdy l6UiPln1rx52qXYqm7M9xAN 5A9XpAFYjdzamqDIloNrsNE 6gCJOuwtpaVSKdhF7iQTXqY 2e0XuZn GiR1GXqaR9ZmgvE0SZVziOC bHUAyjDDFmK0hjegmo4wqdl uaVwKbOPPgQNm1JWj1QGDid WduOiBs DVG0HkU2WBF4bLLpaE7vdKz noqskdL2qMxb+WJo0o6opdD RpCW4duSO1YE01XO62iZAcy 0T9fFN3 S6RsEAOyupschgetvDY0QDQ uTAGhbI49Dv0ftCazJy9oAE YwVWJ4CHPxgDOkF8TesF1sD iAjMDAw YSRdK5IukLTeIUpqU049OQi mLaR8VHZqtrHwK1JwYJHxzF deHqK2c7Y3Bc2PHI50MD28J L16eBAr i0U2bXS1A7BiDGXsbkhxjhk esAR8LNSvARJbuW34Bb4ltP geBo2nFAObAEF4BQFfuEKrX 4LoeO7k SyGkQDAyOCJnL5IteKCcGQc zW789HJkpHtZ3ETAiowSkA5 XaIYLacUgfAsE5o3L8Du3FC x64CO47 YL40kTPwy1G6bLG4T8CuGVS epsvkfsmumPR8UOVhENGfxS 93Pz2lhPjyRb6iIBZcNRH7D FRpbWVz U2YybE4eYsTrEUTpCJZbJ3G ykOTfBKvyL605LZtvHkU2KA IayzEyI3UfVDVfnWxjNvN3x 2K8Gv1L YYjwieg2P7VvVqrizIQ+PC9 3KGXlGL47cOJngDOxt1awsC q3XtRhYULcBNB5kPikAWwwj 3JkZXIt Y29 (more content not included)... [facility] Progesterone LCon 03-15-2024 Progesterone LC 1.4 ng/mL Invalid Interpretation Code [facility] Comment on above: Result Comment: Foll icular phase 0.1 - 0.9 Luteal phase 1.8 - 23.9 Ovulation phase 0.1 - 12.0 First trimester 11.0 - 44.3 Second trimester 25.4 - 83.3 Third trimester 58.7 - 214.0 Postmenopausal 0.0 - 0.1 Performed At: [facility] [id number] Sarah Beal PhD Ph:[id number] Performed By: #### [id number] ####[facility] (DEFAULT)[address] [place] [address] Provider Orderson 03-14-2024 Provider Orders [id number] 031 [id number] TGTIFF [facility] Coding Summaryon 02-20-2024 Coding Summary HTMLBase 64 AkeknsnrAZm4rFa+PGhlYWQ +WC2KAYLzA38maUDzkB5jM1 NMTElOSywgQVBQTElOSyIgb jXvOB9ndJZhWXUl IC8+ZW4fLQThQstewSXpx0N 7wJM5V30wig0qYIcerMC5HC TkKhLpooqpu6wpyCx7MNvkQ mluOyBt PWVdvC75OYW6fX18Oa48aGW plAOek7gphPz1LhDvHSGoBW J9bRrgUWyyl3KgSRIvW02ey IFns0F2 GEIorPklxRXfCcDhrYA4uD7 aODxhtlylp5xgarxnUko7ep 51zGUpt6B1oFR1Q3KcjjG3W GJvbGQg OihsgXMScI4zurrjl6pwhep nEeMhQDWdEHd7MCs6TEBwkQ yhDyZcNZ82OFE3SXQmihDlY 2FsLWFs rPicStL1o5N5Sx9PX1TTUky qL7GNBEQPQUntyLV+PC90cj 09L6DeFlouVop7WHUrHCL6p LE9lK9w UZJtBSevl1B2cJH5S5KuprE wru4pb6sqHWKsTCwkG19ajS Dgb3Z0LSRspEU9MRBxbYzmE iBzaG93 Oyc+YNLsoGhxz9JyUspjz8p gk0jouUz1GfcmKSNknoAiyQ peJLL9l1IvTn7cAAEefAV6w RF9wQ8j FpEmEzF8OEepQ528YtXtnXP gGdcgB71jB9RjjAA+PHRyPj a4YZPxsCiwDA4sR2IbNBFcd mctbGVm dRfpEI6mEAVdwdkxXLIrmE5 pFDHkY5a1SfVkScU4MAdvB5 WwQJLwuzcjAy37gC0wSaQoQ fK4JHnx J7GehfZ8RKUrxPPhUHbjUUE 6V02xz1A5CKMuCVHzADN7dJ L9bV9wsBekysbxkTOcmVtzz mVydGlj KAhoBFkkO140GCWzdGdoWdO vZGluZyBEYXRlOiAgMDYvMT cvMjAyNDwvdGQ+JMBmETD5l WxlPSAn iHTpMEtmKz9yvAfdtAjnYJ3 cKGZkszijJNGgwW3nJVUzwP ZzqMysTB3cNVHwtjirx106X iAxMHB0 BKBeaUHaM2SfcQ8pRpFiPEP mQKKgF2SyfUCpSDnaL678AC ogXzV8SCUgsvZuU2RnWYTbf WduOiB0 l0L2Ao6Mj5PbazayW3MzoJI gMhRuErgyVHr7I5MqChjmeD I+UG07ISPdAG10MFm8FCP7n WxlPSdi CVHdE9TfaE1xHxSnUAJlLRO kOyc+PHRhYmxlIHdpZHRoPS ncAMUqBiKvkVkgPK4cOv2zJ GVyLWNv rXqtdCFaSdWpq6gkSCUgMQl sKP9nrBsaW8JdgHI5KRPpi3 d7Bj40S33wQ5BmkUU+PGNvb IM2yLH2 jA5iOgFgElA8OAdyF393HuU qrIQiJgivu3fdb6vmvWo3Zj Q4OXToxfRigFteFYB4j6EeL b09T82h IHdpZHRoPSIxNSUiIHZhbGl hkh8onN7jBr2+OLErcMO8uH P7tM8xMbZaUvV8REpnY839U nRvcCIv Xwdeq5wqd4mncTm5AzEaZQV fecWdjBqpZJB9m6EgOi61O4 HtaWoxq9QgZvi6mr56eWNdj 6N5eDN0 M7SvDGJszfjwtMCdhKktEW6 nUQHmzqktLVZppH5lKHSnJ3 z0UkOcScQ9PUvhD1BftuV6A GJvbGQg YXNudVOSaY7aydwun2zqgrn nAyBfMWHrZGw4VBh1JFJjjN jfZvUxORK5BaV2GDU3aYAsg R9pzOcr bldljH9bCgw+HJA0nHFhiUA YDS1xNzsoyYJ+GIVfHHU9rN eyMXekNKPcpG5rEHTlL7o5E iAwLjA1 ZPkqS3OmnpD2COTyeASxAYK kaQDHjH6cawsmq9zdqipnDn QgSZYxGKt9GVd5AHPmxCfzN iBsZWZ0 JyU1PFD6eMFowJ8ufOqurwd ujQ6mSzu+XtddoIfqSLG9BH o5W4GvSyw6QAOvpRgbUC9pa GFkZGlu Ds4qxDstdOdkRR3bLQEkonf wu526OoEmq5axNQWipKYnKW zcBNM8L85gu9T1GEKqHZAzZ HC1vOF7 jK4mpFxvgpzspYBlrOguzcR wyGznGChbYYwtN789MEAyrF zqCuAsCEy7P2AkIaf3WWXdx GjwYH6r vOCcZSroLt1yvDyjcEnkLR0 pIFGfjwpfj278YjLzs3vaSF QynATkHQinEFB1H53lz5G3F CMwMDAw NTX0fHE3hL7xeRcrbmlipHD mdDsgdmVydGljYWwtYWxpZ2 39ONQstPzcJvLstHx0C2TrY hv8JEUa gLokNS7xgMAiLWgsRz6ceTe loEaqDE2pKREljvmoq769St Hnu6vdDTApvTQgLLtgIXC4X 69ih0Q5 JZEnDVNdVXH8uDW5cD1ycAy nbjogbGVmdDsgdmVydGljYW trGMwfR865FWMhhGskJnVrj GllbnQg UCrtECw9M4RjPhjsqMX+PC9 8LRJeCS76xXIlpKFru6hmpH x6AlUkJNGzCEJ0bSotJAggb 3JkZXIt E64rlVYdh7X3ULMknOlheTQ bCkBolKU0iF7fEKmwjkziy1 ecrsntOkkov3tfpp11iR85O 29sIHdp ZHRoPSIzMCUiIHZhbGlnbj0 zpN5hPh2+LUAyhED7eXO4iQ 4qGLNpIfG3DSnfJ634SqAtc CIvPjxj f1omz0zzwRz1CsG5MRXribO qeQodFTP6v3ZxAr49N64gLL dpZHRoPSIyMCUiIHZhbGlnb f6etF7d Ii8+DPQvsWA2yPZ1rS2iUiL mZyK7AFrnO460PwLjtSJbAc rtY75pZ2KmySP+FFLoQfv2K CBzdHls CQ7vrDXbUMkxSw1rHUR6NvG dXoMjQMsxZ1LbLWTebjlwpw puuWW1IRCbSHXuhA69Ml1hr DogMTBw zIPWgG9dewvxu2kssfggUfN yJBDzWDf1KKr2DDOxxAgzIl MlLIA4WaV1DPD8xVMenO3ax Glnbjog pS0iD1HrOXJaxjbwBd73sB3 kQtEePcW4MQzaWsc+Q1JBV0 ZPUkQsIEJSRUFOTkUgTUlDS EVMTEU8 F2QtUip5YYRddUrqRR2ueQL mLEhcHa9enIztoEkfRK7qVH TgxcuaBPWlwL7sKGOdaEBad GzbEA2r SOUfuknrt211FbJsHRT8QOL woWRhB6GhtO6tKpQhOMEnTN UeJ9YeaFKjAQruI436OHcrZ bO4OLIb uzWxS7PfRPRdeLnoDnF0o4I 8Jd3lGq8rLN6xURz8BI56TO 88yMDen1L4vVO3D0EzRKSfi mctcmln cZP5QVOgORMquH27sBUtJNf tJd9ev3M5w807GCUdYBYuxF 28Il5bsXcoUQEwsWLZkZ5sz tfmc2lv sxvsKbFjAENcQTx5HMw3SAQ snNjgFbMgDDO6HnN4MIY6lZ ZedJ9htOawwixafX1qUbo+M jUgWWVh jqA0U1GsRbk9BKRzfHzqTW0 eeKZpZVutQl1boZncgUhcMA 9aKRZugstjMZVrjF9sAMJyo HRvbTog EQ7vBXPxrazow085DuTwFSI 7QDTviIGvP1DycD3mGhNcGD HoHLZxY5SxoOFrZYnvO875C GxlZnQ7 MVLnimNvP9XjWYTyjIufNsX 3d5I2Yg1IJT0XEXD3D4HgIx b2SCJxnSmcBD0csONgXDxsM e7dvGal jXfbXR5uAJHavqhdMUSxqF0 pOOZnzTNdcRamSP5hWIEctf beh939VmHxRWI8CNQfjNTcN 3FfbU5d OaAiIWMaPZAtC9ZbgKNkEJs iU746RMzrVmE7KIVxsjEsR3 KfDWNlrOfpGkY8v0K9Jm2MG DwvdGQ+ SV55ej77W2IjVizzKuh3PIW kWFH7wMM8wH0iPYNkXYjwr6 X8kSR0D3RrglBjlj6bt6exO XBzZTog S13xmFWlf3L4EAQqhMG5KOC deQflXoCsjP14Vix+PGNvbG ygl2KrBopzp8rsv1hekMw3M jMwJSIg qaJiuVvbNKW0m7JmEe32K68 sIHdpZHRoPSIzMCUiIHZhbG ncit3mvD5tIm5+UCFmkJD4c MO8cB8n AzQaHuJ7UEmnA242DiEupIK uHctct6uvj3dkxRc8TlAaLR MpbwPuySteVGE7h5BuEi36N 2NvbGdy z0VsGnb9bi81cPFww6V3wAA 5T2SdNESceeljvBUeyQykSF 7bVGUrztjqPVHtmD2jEMJnP 0h8UnCp VlI7SLosD8KzrwH1ZWNphIM iPEIynRYOeA3bljjbw9lgbk jdMsTlJMLpXWd7CEi4GFYpj WduOiBs WIM9GiW8LPY2lTXjmX5tsXy igaesyV2yEej+WAf4d9lyvP KgGR3gyFE4KX03ZW02wQGzi 2D5iDC7 A0AvDSSjhfsbznjlhHW5CPA mYYPqyV59Wz6ywCazZa9oBQ ThVFQ4FCWgwBStW8HrvQ8rH iAjMDAw OAEqW1KvxYKsPFqcL426YVk nSdG9WYEzhvDcA9LoFYLvdM vyFoM4c1J2Xq3VKL92NG02L S79gAUy c3F6tHB8V1CrFAHpdjkxqlc qxAO5IGNvOMOcpP29Gp2pzY zsQv3rWRCxWAA9PMLspYThL 1ItyI3v HtTeWXVdFKCbU9XbdJUfZHf wN272ILsmCqX6QVTnnfIuX8 OlSIBsrTcbTaY4i8R3Un7MO w95FC23 NH24fUOts9K6oDN6B3UgVHI jjkxeoxqgkSG0XEPcJHZvvE 38Ay3xwVlnUt5uNFWqZXF6N FRpbWVz W1EanD0sCdTdDZKcTLVcA3H kiNZxARipR943MCggZbP7DI KulbSbX8FyQORpdQwcPeX8b 9T0Wk1M PXiythd0Q9BhMfxclYR+PC9 5CCChFS43rBEogSDew9purX j5FyXhNJTbZLQ3cZrkTEvbv 3JkZXIt Y29 (more content not included)... [facility] Progesterone LCon 02-15-2024 Progesterone LC 18.8 ng/mL Invalid Interpretation Code [facility] Comment on above: Result Comment: Foll icular phase 0.1 - 0.9 Luteal phase 1.8 - 23.9 Ovulation phase 0.1 - 12.0 First trimester 11.0 - 44.3 Second trimester 25.4 - 83.3 Third trimester 58.7 - 214.0 Postmenopausal 0.0 - 0.1 Performed At: [facility] [id number] Sarah Beal PhD Ph:[id number] Performed By: #### [id number] #### [facility] (DEFAULT) [address] [place] [address] Provider Orderson 02-14-2024 Provider Orders [id number]#[id number] TGTIFF [facility] Coding Summaryon 01-19-2024 Coding Summary HTMLBase 64 FdkhzhjvQTm8rEt+PGhlYWQ +NQ6OWJKeK76lgQNsqY0nK3 NMTElOSywgQVBQTElOSyIgb vEhEB8pyHFtIHTx IC8+ZQ2pJHWjMpgbrXXbc9A 8iKY5A93qoh8zOMvmeCI3GT PsOmBrpwodt1hmrHr7KLflY mluOyBt LQDkpM23STG7rH06Zz06pBQ kaBHvz5iduHx9TuEcIDZjBU K8uPgtXLmgw0MrREBpF42jo NCss0Y4 TQLqeFlrdTBlZqWrrYV4iN5 hKUbwngsri0qhksiqDhd3ut 78tZTlo2Q3lAB7A8DdfrY6V GJvbGQg KetibFXQtP6hnowin4yenis gOrHdZDDvIVf7HOl7WBDvbZ ucNxUiIA28UVN4YHBawlEuZ 2FsLWFs xXkqKnE7m6U7Uu3PH1SQCeb yC0GRFFDFQJbygRO+PC90cj 49Q1IlPifmYlm2FQUsCAA3u CT0cQ8j EEDtWAnra8G7xSB3E5TuujO ygt6ml7cpYSLwPYvlT94wtO Hgs6V3OEBqgLL9TUGkxFfkA iBzaG93 Oyc+YJOedOnio9IbWdxsu3z ik3elxLl3BptsMPJmpoSypR hsGMT7w3XiQf5fPFHkbTA0q TP2zS1k TiTgBeR8XNmcQ321ZzNstZL gTcbnP77nK0KcqSQ+PHRyPj e5XJGwcFbvYM7rW8SbHBPbv mctbGVm gWvmTW4rFWHyiujqWXKxfC0 yMBCyI8q2YzBlXsE8RCwxL8 GzAQKcfzvlXb43lD7cBaKxU gU7SKvo B0LqxcE6SMZrjNYkNYwyQJA 8Q45nx4Z1VYIqDEWfMTX1sC E7lE4jgEtyiuqkfYUsvTwut mVydGlj OMqpDGqhY612PTGvlBzlLvN vZGluZyBEYXRlOiAgMDUvMT YvMjAyNDwvdGQ+RPXnDHJ8a WxlPSAn bHOgDQesWy5vzLjtqEnyBW7 pJSKqgntnRWLsyJ3tNSCrcI WyeZrpCJ4aEINdyqhoe729Q iAxMHB0 WNRfoMNnF3ZynW1yFhPhOAH uFBCaN9AzcMDwSUjsN926SD gjDkW7CGIdvuIgV2FzBDQmy WduOiB0 o2D5Vr0So6UhmpfrP5RhqVE cIjKmEwdnIAo5J5OoDnyiqP I+TL34FTSqMI79YAf9EBD1p WxlPSdi KTAhO5EeyZ3mTwIvKSJlIDS kOyc+PHRhYmxlIHdpZHRoPS ixXUZeBgCpcAonGD1fWl8tN GVyLWNv uOadvGWhKqJxk4vpZPLtNNn aXY0bmSnnZ0OnkLE4ICLeg2 n7Vt55B96aQ2XhzYQ+PGNvb ZZ2dGS8 qZ8fEoFdMjZ8DRxgN460KaZ gnEElCxbai5uec8lfrRn9Ma M5YABbibWdlQawNEN8z9WpA l78R71n IHdpZHRoPSIxNSUiIHZhbGl zxq1tfG1rJg3+HUIcuTX1zV W2zC1nOoBuDzB2PXulN516R nRvcCIv Xslgp2ylq6choDp0MuSuQSA fvfZyoFsuIPA3n5FiKd85D4 EnzCxjk2IjTcv1cl94tJMew 3Z3sWG3 O8BqRHJbhtodlVBrdRgnJF1 pXXJaxpwsMOThrC7rZJBjF9 h1JdAhZsO9GRolR8XncnD2F GJvbGQg GCKhxENClC4hbycbs5mxxma tYdQuKZKtPJt4VWn7DWMfiQ kgDpXvOVV3HfJ8CNA1dONsv Z2llLvb vhlshU2nEja+OPS8jDLudQF AVY1aTwgsoSD+WMDfSYG9jJ urHGmvICMtjN5dJADnM4o5R iAwLjA1 JJkkJ5NpkzA5WDNgnBUhVVW jyVPIjB2igwysc0sbwaopDe QiLTOaNYj4ADu6CUJyuYhoR iBsZWZ0 NbF1ROT5uABfvV0ehFblrqj evG9oAkj+SifgiMzsQBL0ZM x3F5EiDsf8GXWhrEoaVW3jo GFkZGlu Tk7fjAzcoCrcFV8kYZSmuxs xf919DrYrn6mvZDFoiOZpAD tjHRO1J48kj9A5UOFiMZZfI XP3aZH6 mW5cmOebszgjxYHsmDnrndO qqHjjKNxgTVboQ221XYOjwZ hcRyBjHEx3B9HlFgq6IVHix EnnOY7o gOMqOXfdCb4hwWlipTfrUO9 tXHErzbwwf682CqRxf5ifDM LdbUQjVJhbIYP0E82ea5P7Y CMwMDAw ICS5rCF5pB9vwIrqofcboML mdDsgdmVydGljYWwtYWxpZ2 54IWMorYstHiZxlPe5M9NoF gk0WXMv rRivXL5omHLkYGreIx5biCh tyKzjTR9pTROkocpxb960Jo Icd3vxVHVdpKDeTFotWUR9F 54ou4P3 XSNcVMDeDPM0tHU8vX5gkPr nbjogbGVmdDsgdmVydGljYW vgDJhpD253EAIpbPgkKhPrw GllbnQg YWmrRPv9J6JoEqorzMC+PC9 7LVCkDE13yWGexQOxf0jgtN c4RwJvEWYuTBN5zJssODmpd 3JkZXIt T84szNUwc5F0JEUqtZdyhEI bBuJggRJ9iG0qNUznjfjxd5 gqfbulEordt1mvfu87oU95X 29sIHdp ZHRoPSIzMCUiIHZhbGlnbj0 pqN1yVt1+MCNzrZB5dEQ0eN 2hYRFyZaQ0NMbnF972GwFln CIvPjxj z7wso3yobYe6DpB4DMRrcmR vfRjfXAC5a5XuHp78Z08gPD dpZHRoPSIyMCUiIHZhbGlnb m8ihU3y Ii8+IILdrLJ3wGX6dH1uQpJ oZpS1UYttG583SsPqoDXfPi thO18eV6UapDM+ZNAoPxi9T CBzdHls QQ1ytQGlOUpbPz1zAUG1YkZ eCxQdNGuvC3DoEPYffxphtg qmeLV0UJWrJJZjuO78Gb0ci DogMTBw hZITxJ9dpstdy9jhhglzPoD nLFEbVIi5GHn7VEWmzOnsXf BqYDH9GeC1FKA4mPEkvY4ah Glnbjog cK6vB1AqUPWomosiBq27sP8 iMcOyNsN1MGwyLuf+Q1JBV0 ZPUkQsIEJSRUFOTkUgTUlDS EVMTEU8 I2YaMuk2TBSyuCjjWI9srRE kMGmzHo0unKaxfJarPA8hSQ HjgrywUDEreR6aRPNrhEDsc LvlRJ9q GWOrcmpkh940PtCkKLE6JRU soWGiM6JnuZ6eOpTaCJAlCS PjT5GkfCMeCNpgC288HCooJ kB7IZBb iqVnG7SoUHBquZtkWiQ9x9F 5Ar4bFd6pFP3bUHs6QQ73FJ 20dLOlb1V5nWJ2P6CxUIJxk mctcmln mCB7JYItOWLpwU64wXBgZXw hRg8vx1Z2d464JFAtXBYfbB 14Tu9avGtvMUXjcNGGaE7ax dcwz0rb xbuuUwWhFRXuOWn3CIe7DUT iySegPfGlEYS4WvI3ENU8wJ MfdG5dnIcoeoutgX5rZbz+M jUgWWVh dvY4Y1MpIye6ICSabUiyHG3 ccMRgRIwjHt8lfFpitFqgUN 3gRXJegmcaFUJhoZ9gELKri HRvbTog DT2mIRAdntzru504YlUcHAC 1BUPqbDGqP6XjeP9sSbBdLK BcHNSwI3OxrCHnONiqW392Y GxlZnQ7 YKNkzjUhB0WwXKLmuHxkVfZ 5t0P7Ow8OYF6SVGF3Y5UxRx e3MBSduHwnKC7kbNEgPBjlZ a5nfAtv jRfnAP0vUKDbhwpoOYYzpD2 xQUWnpPRuoMbuFR0kEFDqft cwi378SgHsFZG3XAZwvMRoK 9NabY0s LnMiXUNhHERpB0UgbCOqUBd dS113UItkIfX2NUFwexDtO8 RbIHZuqPtpTdV3g4T6Ko5KY DwvdGQ+ IE85eb83Y6SuDrtaKam7VVN sCFY1mIV4pC0eBBAzAJayt3 B3vQB8Q0OqhiIscf0vw0vfR XBzZTog W38smDKrz6U9IJDkqSZ6WWN ukUeeSlPazT14Ehn+PGNvbG brd3JuCqeie6wzs7ivcIl9U jMwJSIg gmAuqMbfOGX8h0UfIk54X02 sIHdpZHRoPSIzMCUiIHZhbG cbdj2izR1bMv6+OPDpbGQ4w BL3uY3r MzUzFcA0IUtkV227KuMoeVH gZuvqf9vds5mliVe0JmZrDJ UwmmZhkVkyUPK2z8GmVc67M 2NvbGdy h4NyJjp0la21xYRcq5M6wUP 7W5UbURGusbmzmPXspTtxMX 2vWDVbexwiXQFdmX0oRBWtR 1a2ZnYt PwY5JNwuO4CmbsO7PKUrlOJ hWEQijRDGiR5vublqw3wlqg euDyRxOABaJIv8YJs3BWTsc WduOiBs LOV1HhD6TGY2uHRjhJ0cwOj eqoqsyZ2dHcj+GHp0i9nmxN XaYF5zuSN1BD48VC47zVVed 1M3uYQ8 J7DfOQKwficsbljelSZ1GYU mGPChyG33Ll2azHkvEg9pDG CpXPZ0XFMnpHLzC9NbjG4qX iAjMDAw EBZcM3OonNEnPGcxL102YLe rQnM3QKFecnIjU2RhIWTqqJ fnVzJ2k9X8Ye2USM61NA94B Q73lEQy n9Q2wLD1O8BsKOTdikjcmwv akJW7YAGlIAMqgN07En9jxZ lgQu2sWEAlSRS1BWPyqYAkP 8DhdR9j UgOzONVeJRQuX0UvlUSiPCb nA895PUjlFgU8WOMwfeShX2 FjPITyxYozXzR5q4Q2Cq6LU x77XV90 HT11bHMzh6D8lMA4T0ShMFF wihnvlatowNJ4WFAlZLIzcZ 74Xa4eyXpnJl9zQCNwJOZ7N FRpbWVz I8NlbW5vZwOxJBKbKTPvV7I qjLFwTWylT978YLalAgX6OB FqiwPzW1EuSRQtvYywPiC2n 1O6Ng0U UZpwzsc0J7LsCsargER+PC9 9TKRqCQ89pZFtzSOfd5vbxR a2BtNfVOZgLOW8nKwgNUhhh 3JkZXIt Y29 (more content not included)... Normal [facility] Progesterone LCon 01-18-2024 Progesterone LC 14.5 ng/mL Invalid Interpretation Code [facility] Comment on above: Result Comment: Foll icular phase 0.1 - 0.9 Luteal phase 1.8 - 23.9 Ovulation phase 0.1 - 12.0 First trimester 11.0 - 44.3 Second trimester 25.4 - 83.3 Third trimester 58.7 - 214.0 Postmenopausal 0.0 - 0.1 Performed At: [facility] [address] [place] [id number] Sarah Beal PhD Ph:[id number] Performed By: #### 3 [id number] #### [facility] ([facility]) [address] [place] [address] Provider Orderson 01-17-2024 Provider Orders [id number] [id number]#[id number] OTGTIFF Normal [facility] Coding Summaryon 12-21-2023 Coding Summary HTMLBase 64 QirdqjfwLIe7oIs+PGhlYWQ +JD2PMELwF79ihVXbaS3jX2 NMTElOSywgQVBQTElOSyIgb lPhYR3dxAYvNMGo IC8+FC3pZNFbLziitZRdg9A 0kEC8D71vnk3aTQvmsBK4SQ QzWoIxvqwxw4pvlHn5FIjaT mluOyBt CVUhnW35GSL6fI01Hn09xXD knJXuz8vcpJx2FrZdKRZzZD O1qOzmILmcr7EfSDWsO19ea HFmd1T9 LVQzlUanyYWqRzItdIH5vS8 yZYhkwqapc8vclvazDdr2eg 26nWYqi2B6sMM6F9VnzxV0V GJvbGQg NotgtAWWlO9obuhyp9rltlg kXkBeGKQpEQs7DEc4GCZdlG obHuJiPC65BTG7ZVJsrqYjF 2FsLWFs gFgmTzV1j9S3It9SK6MINvg iC0CUJDOXGTpduNS+PC90cj 33C9DeLisuMnr0AOObVUW1p DI6wM6r GHYkZNxpk5A7eQP9K5KxgxR hji2br2odZXFfKEmmI72vgW Uwi0Y7UCOplEU8YBQfjDnaO iBzaG93 Oyc+UWFyzKlsw4RcZhypq0h uc0qvoWp4VxgaSLJuecCmtQ xsTDV9x1CiYg5oOKPxqXD7c IG3dX4y BcZeEaP8UZbdG628WiKaeKG rLtrxN10qC7GjyJL+PHRyPj b5XDKwgTjbNM1oN6MwNORef mctbGVm gCuuDA6sNYMpumokREDmrV2 vQIFhO1b6OxEzVpE7KMndK2 BoJRIbjpjsXq35cZ7iDoCrQ cB4KEym R3VjwlQ6KJHhqSXoHQgcAVV 3F41ry0V4XDLdFWXuKGN0aM T2jO9lhKjqaktilCZzeDfcl mVydGlj LUeeGVyzQ879JYFgrTliGrR vZGluZyBEYXRlOiAgMDQvMT cvMjAyNDwvdGQ+MGUiNJK8h WxlPSAn cIAdRTxoCa4fqCkyqLkvXP3 wISZuqhruAYHxrA6uPJKdoS FjoYnuSC0yWPDecjjdz186A iAxMHB0 IVZlhKDzQ1FgbP1oJoGiIAP bPXYwY8TywFPhRHqeD996TP erJqR4MSUvvzHjW8BjVSOuw WduOiB0 n1B8Tf5Zu8YrnyapX8BhyPH sOwVkDfyiHZe0U5XlYkbhmF I+SD94UKMjGE28NQu5QHT7f WxlPSdi YZWjK0EdnV8oOaSmRLQvVIH kOyc+PHRhYmxlIHdpZHRoPS pwENCjOkPiiMdtEV5lYx5tQ GVyLWNv pKoaiFLlEmCln5aoZLUvQOv fSZ4sjDwsP8QxiVB4BGFmu4 t3Vz61G85uE7CrfBQ+PGNvb PJ6wPM4 nQ3pDjPlPeI5ZPxjP582DiB ssDHlNpnhl2ocz9bepPm1Lg U0DRKrzbImvIkjJIB6n1VxS y55K34h IHdpZHRoPSIxNSUiIHZhbGl xub0oqA1kPp8+ZVGecYO8iD I2sZ7lVzNhTgF2AMtiM523N nRvcCIv Xwthn5eyy6cmpRd4LvDgLUW rmlGkfHftBSG2r4VkGt71R2 XobSodi2NpWgq2qy33pUVcg 9U1oNQ9 O5HaEUVwolorsWMtdXbkIG6 cWSUvwgviZKDeeM0wPKBiA1 k7SzWpRoS1XTrpC5YxytK2L GJvbGQg HARdcBMDgO5tbxseu4euhyl nPoXtZWVnRRa7HWv4WXHotV hgAmEaVAS2IwM8EPC1fVTka B7ayQig otvmiZ4ePmd+HLC4wBDspVD STI3jGebivHJ+XOBfEWN2wZ mbGGyaUGMerM8sIQKeC7a5N iAwLjA1 BHveC1XgqbH4ZGWrrPKbQUN rwMNQeA2ooueyz7cjjgncRs JlLUPyHJo9NRz7PXPiuBywV iBsZWZ0 RwR0HYL8nTPjwW0nqVqaurx epV2nUpt+HfabxLhsAKJ7BK y5Y3UuRrg1JEZrvLlfTT6yz GFkZGlu Pt2ieFhaeRfqMW5fGHEkfbz hd117RvQjo7bjTDVymGYjWP tqEBX0U40uk4H5WWUcMBFnO WO9dIC8 pD9ydUlintclvDKxwDzhxnP jvRnvOOdzJWgeU330OCKjbY ctXkWzZOd5O3ZuLoj7ELKtv QihXC0g vOSdQSexLe0pcFjsdIqdGR8 jQECtfpeij494NcZiz4dgBX UcxUUtAZllAJJ2X34ti2F5M CMwMDAw EZL2qLI1nX6qvWogaksplDK mdDsgdmVydGljYWwtYWxpZ2 91TJUsfUycGxIijCw0N6XcI mp5DLBx fBhfPA0fiCWcTMslCf0xvHh twIwnBV2zXJZwrgboy462Sj Hzb8fkEIHcrCNbDRnhCKM4I 98we8Z3 MIIdJVJdPFH6vTU5hL2nuFl nbjogbGVmdDsgdmVydGljYW pcGNjzA745KYCfeUsrOpPuk GllbnQg BHcvMNs0Q4UdAckpcVH+PC9 3NYQbWC51cYQzvJMku3dyfZ t3QrFlGWZqPOB4sXjbGKirm 3JkZXIt O12lyIGsw5X9CQGthQlghLC nZtCpvKZ1uU4eTEpigmthn5 riwhtdYuopm3vdrp25zF71I 29sIHdp ZHRoPSIzMCUiIHZhbGlnbj0 wlO1dWw7+GSDqtNB8yQH8vJ 1jLHAmHfH3XIfoV404HfVwe CIvPjxj g3pwa0tnoOb3DeP5UUVhddX xlXciHOL3l7ElQm39X13qRQ dpZHRoPSIyMCUiIHZhbGlnb g2jhS7p Ii8+YZZuaVB6hEE2nT8kJgJ bPrR0MMagY301JsUhsLIzTc thE81lF4IpqNU+SITlAwc7O CBzdHls QK1pkKOvYVfhYc7rRRK8ZbZ wWcExHQoxD3CySNXbtqjdhm cujQZ5YJNdPYMedV75Ds0gs DogMTBw cLGMvR0ktqhhy7ekdnaqCxJ rOREmDNu9ZIq7KZUsmKuxCs DgQAN6WfP5JTC1rVLuwB3wu Glnbjog sI7vM9VlQKYvtjdbSq13vD0 iNqEjLuZ0IVyyXlu+Q1JBV0 ZPUkQsIEJSRUFOTkUgTUlDS EVMTEU8 E9ThUsb6GMAqzUriED0loMQ uPWxkNc1ouDkjtKlqPV4yOE BzhhfrSTPzdW4bCPYboRLzb CfcDC2b KOGuljoed281TsXkNHL1EKD yuEHiG9IceR3vQbGoUGDpLK OdC9MuoSXtOLjtE350YLvfC eS1AWCi haHoX4QoHPHsjKreQbN3w5W 0Af8iNh0xJV7xPEw3SR83ON 47qSIgf4Q5mMN0K5UaNGFni mctcmln yZN3ZCKhNXRbfN52lEYlGQy kKh8wp1N6a707OVIwQKDymI 01Dz8vsOcoOTXbaTKLaJ6uo jduw7np ojumOdFuZKZlLLm7ZNr4CIM dxPhzXcSnCIC4GhZ6DQI1pL TsqN7loLzdxmmmnJ7wKls+M jUgWWVh egW0D8KtUmb5GETtmCkzNY3 saKDhXSppEk1yjCrdwFulWA 2uMLJdrxbbWEEcnG8aHTDbd HRvbTog FV3pOBKgazskx350VjReHRJ 9YURsrGYfD8KijR0aTiNkOH WzHNOeD5TryNLdCUydK490F GxlZnQ7 NBTqbbDyH6WiAYEmmEljTyN 1m1V8Af8PDV5EGQQ3K4UrHc x9GUSvpMmjHZ8tvHFsOFomC c3vjZmg oAuhVP2pJMSmsqsxIJLxiX2 gRDSglMSrdAnqSV9lGTGmlr jkb153IoGbYKZ7XLQpfVAeV 8XicJ8e DmXxSQDqBKKvC5HmbRRyPAq iR409HGtmSuY4LBCshoHjK8 FpFYQmtDutIuQ0t8E5Lh8OY DwvdGQ+ HH82ov57H1QjRafhEmy1BRQ jZYB7gCS0pL3pKEFaYRtzc9 D6xZN9E5KlxvOozs4df8qiM XBzZTog A39xhQXce8W2KRHruNJ5HUJ daAkfAnKhnU81Mzn+PGNvbG xeu1VdElaqh8fyq6nyfDe5E jMwJSIg iwJgeDnyHHX1s4SiBy69O06 sIHdpZHRoPSIzMCUiIHZhbG lgqu4ulB9cDl2+RAQqjYB2s BO4kF5p CrNvSbY5BNvwH017MzZsrQX iHgggo9aim5kunVo8UqSwDM OjgsLxgFbcGKU9d7HvRh84Z 2NvbGdy c4XeZxa7px84jNRhr4Q5vYY 3O5KnXNYgqptdsPXgcCkfHH 6vGDRqddjuNBXogX2jKFNsR 7r6WnIg RqK6GRxdV6SegqC9QPVjkNR qEBFgjWJZeE7wsflpb4delf qkAhGfDTSoPVr0TGk5ZXBhm WduOiBs HLD3WpV3MTH6xFKfdU2rdQj jwwouiG2jMiu+WCy2e1srqB ItYF5hmIZ0XR67GW10vBChj 4N8mFB7 Q4FxQQDbfeumsjuckOG0KFJ mRJZbnS29Mz3gpCvdXm1oIL XzQZO7MZXhtHJrL5OxsG5sB iAjMDAw FJRdF4PnsKRkXKguG017UEo wRgD8ARTscpYfI7MwNVPbkO zhHuX9c0A0Dg8VYZ00BL73S W51wZYe y6Q6bFD4W2QuMCZijiqmgbj cpXI9LAIrZKZxpB77Ad5xgW alSm5zKLXpKLW6JVUdbUOfI 1AfpK7l CcKqELFzIYAgD4KhyRYrCWo nO173PAbhBxK9KMScnlTtB9 RrHEQfuBhaDxM9x5E9Sf0QW a40OU15 CG59xMWjl7W6bKI4Z6ErLOR gvwkoowovxSF0MKWmOCJpqP 02Rv0qtLkuIy7qHSWgZFO4M FRpbWVz M9FjzV1vMsXlKUClHQOqP9A apZPkCRpqM399XKioHmL6VT AqqxUdA9WlEJKhiNldAkM1i 2R2Du5Y OSnvlov0A3GjHomimUI+PC9 0NPKwKA92uRJwqVKcw3mqmP b5IdJsBZWmEKA8pIhnCYonu 3JkZXIt Y29 (more content not included)... [facility] Progesterone LCon 12-17-2023 Progesterone LC 9.6 ng/mL Invalid Interpretation Code [facility] Comment on above: Result Comment: Foll icular phase 0.1 - 0.9 Luteal phase 1.8 - 23.9 Ovulation phase 0.1 - 12.0 First trimester 11.0 - 44.3 Second trimester 25.4 - 83.3 Third trimester 58.7 - 214.0 Postmenopausal 0.0 - 0.1 Performed At: [address] [id number] Sarah Beal PhD Ph:[phone] Performed By: #### [id number] #### [facility] (DEFAULT) [address] [place] [address] Provider Orderson 12-16-2023 Provider Orders [id number] [id number]#[id number] TGTIFF [facility] Mikael 01-04-2022 L --- Specimen: [id number] Received: 01/05/22 Status: QUOC Garber Num: [id number] Spec Type: Surgical Subm Dr: Rodney Lema MD Tissues: A Skin-Other than Cyst, tag, debridement or plastic repair (SCALP) Procedures: HE Stain/5, Gross/Micro L4 Patient Age/Sex Location Account Attending Physician Sherly Astudillo / CONNOR [id number] Rodney Lema MD SPEC NUM: [id number] RECD: 01/05/22 STATUS: QUOC GARBER NUM: [id number] JANE: 01/04/[address] [facility] [address]: Rodney Lema MD ENTERED: 01/05/22 [...] Fixative: 10% Neutral Buffered Formalin (ESTELA/YJ) Specimen: [id number] Received: 01/05/22 Status: QUOC Garber Num: [id number] Spec Type: Surgical Subm Dr: Rodeny Lema MD Tissues: A Skin-Other than Cyst, tag, debridement or plastic repair (SCALP) Procedures: HE Stain/5, Gross/Micro L4 Patient: Sherly Astudillo [id number] (Continued) Specimen: [id number] Received: 01/05/22 (Continued) Signed (signature on file) Debora Cintron MD 01/07/22 0930 Specimen: [id number] Received: 01/05/22 Status: QUOC Terrynavin Num: [id number] Spec Type: Surgical Subm Dr: Rodney Lema MD Tissues: A Skin-Other than Cyst, tag, debridement or plastic repair (SCALP) Procedures: HE Stain/5, Gross/Micro L4 Patient: Sherly Astudillo [id number] (Continued) Specimen: [id number] Received: 01/05/22 (Continued) Microscopic Description Six glass slides with H E stained material and two IHC stained slides have been examined. The microscopic findings support the above pathologic diagnosis. ANALYTE SPECIFIC REAGENT (ASR) DISCLAIMER: The use of one or more reagents in the above tests is regulated as an analyte specific reagent (ASR). The performance characteristics were determined by the [facility] of [facility]. Immunohistochemistry assays have not been validated on decalcified tissue. Results should be interpreted with caution given the possibility of false negative results on decalcified specimens. They have not been cleared by the [place] Food and Drug Administration. The FDA has determined that such clearance or approval is not necessary. CPT Codes 91861, 45705, 48833 Specimen: [id number] Received: 01/05/22 Status: QUOC Garber Num: [id number] Spec Type: Surgical Subm Dr: Rodney Lema MD Tissues: A Skin-Other than Cyst, tag, debridement or plastic repair (SCALP) Procedures: HE Stain/5, Gross/Micro L4 Patient: Sherly Astudillo [id number] (Continued) Signed (signature on file) Debora Renzo (more content not included)... [facility] Cytology Cervical or vaginal smear or scraping studyon 12-26-2019 [facility] Vital Signs Date Time Vital Sign Value Performing Clinician Facility 12-11-2024 13:39-0400 Body mass index (BMI) [Ratio] 45.53 kg/m2 [employer] Work Phone: [facility] 12-11-2024 13:39-0400 Body weight 131.86 kg [employer] Work Phone: [facility] 12-11-2024 13:39-0400 Diastolic blood pressure 78 mm[Hg] [employer] Work Phone: [facility] 12-11-2024 13:39-0400 Systolic blood pressure 126 mm[Hg] [employer] Work Phone: [facility] 12-04-2024 09:01-0400 Body mass index (BMI) [Ratio] 44.95 kg/m2 Emily TALBERT Work Phone: [facility] 12-04-2024 09:01-0400 Body weight 130.18 kg Emily TALBERT Work Phone: [facility] 12-04-2024 09:01-0400 Diastolic blood pressure 86 mm[Hg] Emily TALBERT Work Phone: [facility] 12-04-2024 09:01-0400 Systolic blood pressure 130 mm[Hg] Emily TALBERT Work Phone: [facility] 11-22-2024 12:01-0400 Body height 170.2 cm Ahmet Soler MD Work Phone: [facility] 11-22-2024 12:01-0400 Body mass index (BMI) [Ratio] 45.11 kg/m2 Ahmet Soler MD Work Phone: [facility] 11-22-2024 12:01-0400 Body weight 130.64 kg Ahmet Soler MD Work Phone: [facility] 11-22-2024 12:01-0400 Diastolic blood pressure 80 mm[Hg] Ahmet Soler MD Work Phone: [facility] 11-22-2024 12:01-0400 Heart rate 90 /min Ahmet Soler MD Work Phone: [facility] 11-22-2024 12:01-0400 Systolic blood pressure 115 mm[Hg] Ahmet Soler MD Work Phone: [facility] 11-20-2024 08:32-0400 Body mass index (BMI) [Ratio] 44.64 kg/m2 Cole Celeste DO Work Phone: [facility] 11-20-2024 08:32-0400 Body weight 129.28 kg Cole Celeste DO Work Phone: [facility] 11-20-2024 08:32-0400 Diastolic blood pressure 90 mm[Hg] Cole Celeste DO Work Phone: [facility] Comment on above: 118/86 second BP 11-20-2024 08:32-0400 Systolic blood pressure 136 mm[Hg] Cole Celeste DO Work Phone: [facility] Comment on above: 118/86 second BP 11-06-2024 08:46-0500 Body mass index (BMI) [Ratio] 44.01 kg/m2 Emily TALBERT Work Phone: [facility] 11-06-2024 08:46-0500 Body weight 127.46 kg Emily TALBERT Work Phone: [facility] 11-06-2024 08:46-0500 Diastolic blood pressure 76 mm[Hg] Emily [place] PA Work Phone: [facility] 11-06-2024 08:46-0500 Systolic blood pressure 128 mm[Hg] Emily [place] PA Work Phone: [facility] 10-22-2024 14:46-0500 Body mass index (BMI) [Ratio] 43.04 kg/m2 Cole Celeste DO Work Phone: [facility] 10-22-2024 14:46-0500 Body weight 124.65 kg Cole Celeste DO Work Phone: [facility] 10-22-2024 14:46-0500 Diastolic blood pressure 70 mm[Hg] Cole Celeste DO Work Phone: [facility] 10-22-2024 14:46-0500 Systolic blood pressure 116 mm[Hg] Cole Celeste DO Work Phone: [facility] 10-08-2024 13:57-0500 Body mass index (BMI) [Ratio] 42.15 kg/m2 Emily Favian PA Work Phone: [facility] 10-08-2024 13:57-0500 Body weight 122.07 kg Emily [place] PA Work Phone: [facility] 10-08-2024 13:57-0500 Diastolic blood pressure 82 mm[Hg] Emily Favian PA Work Phone: [facility] 10-08-2024 13:57-0500 Systolic blood pressure 122 mm[Hg] Emily Favian PA Work Phone: [facility] 09-10-2024 14:35-0500 Body mass index (BMI) [Ratio] 40.94 kg/m2 Cole Celeste DO Work Phone: [facility] 09-10-2024 14:35-0500 Body weight 118.57 kg Cole Celeste DO Work Phone: [facility] 09-10-2024 14:35-0500 Diastolic blood pressure 76 mm[Hg] Cole Celeste DO Work Phone: [facility] 09-10-2024 14:35-0500 Systolic blood pressure 118 mm[Hg] Cole Celeste DO Work Phone: [facility] 08-08-2024 11:09-0500 Body mass index (BMI) [Ratio] 39.37 kg/m2 Cole Celeste DO Work Phone: [facility] 08-08-2024 11:09-0500 Body weight 114.03 kg Cole Celeste DO Work Phone: [facility] 08-08-2024 11:09-0500 Diastolic blood pressure 72 mm[Hg] Cole Celeste DO Work Phone: [facility] 08-08-2024 11:09-0500 Systolic blood pressure 120 mm[Hg] Cole Celeste DO Work Phone: [facility] 07-10-2024 10:45-0500 Body mass index (BMI) [Ratio] 38.37 kg/m2 Cole Celeste DO Work Phone: [facility] 07-10-2024 10:45-0500 Body weight 111.13 kg Cole Celeste DO Work Phone: [facility] 07-10-2024 10:45-0500 Diastolic blood pressure 74 mm[Hg] Cole Celeste DO Work Phone: [facility] 07-10-2024 10:45-0500 Systolic blood pressure 118 mm[Hg] Cole Celeste DO Work Phone: [facility] 06-07-2024 13:09-0400 Body mass index (BMI) [Ratio] 38.53 kg/m2 [facility] 06-07-2024 13:09-0400 Body weight 111.58 kg [facility] Nurse [facility] 06-07-2024 13:09-0400 Diastolic blood pressure 72 mm[Hg] [facility] Nurse [facility] 06-07-2024 13:09-0400 Systolic blood pressure 116 mm[Hg] [facility] Nurse [facility] 05-08-2024 11:32-0400 Body height 170.2 cm Cole Celeste DO Work Phone: [facility] 05-08-2024 11:32-0400 Body mass index (BMI) [Ratio] 39.16 kg/m2 Cole Celeste DO Work Phone: [facility] 05-08-2024 11:32-0400 Body weight 113.4 kg Cole Celeste DO Work Phone: [facility] 05-08-2024 11:32-0400 Diastolic blood pressure 80 mm[Hg] Cole Celeste DO Work Phone: [facility] 05-08-2024 11:32-0400 Systolic blood pressure 124 mm[Hg] Cole Celeste DO Work Phone: [facility] 10-06-2023 08:53-0500 Body height 170.2 cm Cole Celeste DO Work Phone: [facility] 10-06-2023 08:53-0500 Body mass index (BMI) [Ratio] 38.28 kg/m2 Cole Celeste DO Work Phone: [facility] 10-06-2023 08:53-0500 Body weight 110.86 kg Cole Celeste DO Work Phone: [facility] 10-06-2023 08:53-0500 Diastolic blood pressure 72 mm[Hg] Cole Celeste DO Work Phone: [facility] 10-06-2023 08:53-0500 Systolic blood pressure [...] visit 15 minutes Emily TALBERT Work Phone: [facility] Comment on above: Third [...] Department Unsolicited Start: 12-03-2024 End: 12-03-2024 ambulatory [facility] Start: 11-26-2024 End: 11-26-2024 Clinisync Result Encounter Cole Celeste DO Work Phone: [facility] External Department Unsolicited Start: 11-26-2024 End: 11-26-2024 Clinisync Result Encounter Cole Celeste DO Work Phone: [facility] External Department Unsolicited Start: 11-22-2024 End: 11-22-2024 Office consultation new/estab patient 60 min Bandar Darden MD Work Phone: [facility] Comment on above: Polyhydramnios affec ting in third trimester (Primary Dx); PCOS (polycystic ovarian syndrome) Start: 11-22-2024 End: 11-22-2024 ambulatory [facility] Start: 11-20-2024 End: 11-20-2024 Office [...] Available Start: 10-25-2024 ambulatory Kulwant Jason Facility: [facility] Start: 10-24-2024 End: 10-24-2024 Clinisync Result Encounter Emily TALBERT Work Phone: [facility] External Department Unsolicited Start: 10-24-2024 End: 10-24-2024 Clinisync Result Encounter Emily TALBERT Work Phone: [facility] External Department Unsolicited Start: 10-24-2024 End: 10-24-2024 ambulatory [facility] Start: 10-22-2024 End: 10-22-2024 Office outpatient [...] [facility] Start: 10-18-2024 End: 10-18-2024 ambulatory [facility] [facility] Start: 10-15-2024 End: 10-15-2024 Chart abstracting Scanning Provider External [facility] Start: 10-08-2024 End: 10-08-2024 Bamboo flowsheet Emily [...] EMILY LUNDY Not Available Start: 10-06-2024 ambulatory [facility] Start: 09-24-2024 ambulatory [facility] Facility: [facility] Start: 09-10-2024 End: 09-10-2024 Clinisync Result [...] Unsolicited Start: 07-10-2024 End: 07-10-2024 Bamboo flowsheet Ocle Celeste DO Work Phone: [facility] Start: 07-10-2024 End: 07-10-2024 [...] Start: 07-05-2024 End: 07-05-2024 ambulatory Radha Gomez Facility:[facility] Start: 07-04-2024 End: 07-04-2024 Clinisync Result Encounter Cole Celeste DO Work Phone: [facility] External Department Unsolicited Start: 07-04-2024 End: 07-04-2024 Clinisync Result Encounter Cole Celeste DO Work Phone: [facility] External Department Unsolicited Start: 06-07-2024 End: 06-07-2024 ambulatory [facility] Celeste Nurse [facility] Comment on above: GA: 8w6d Start: 06-01-2024 End: 06-01-2024 ambulatory Radha Santo Jason Facility:[facility] Start: 05-28-2024 End: 05-28-2024 Emergency department patient visit [facility] Facility:[facility] Start: 05-28-2024 End: 05-28-2024 ambulatory [facility] Facility:[facility] Start: 05-08-2024 End: 05-08-2024 Bamboo flowsheet [...] encounter procedure Kenya Richter DDS Work Phone: [facility] Oral Surgery Comment on above: Abnormal tooth erupt ion (Primary Dx); Impacted third molar tooth Start: 04-24-2024 ambulatory KENYA RICHTER Facili ty:[facility] Start: 03-14-2024 End: 03-14-2024 ambulatory [facility] Facility:[facility] Start: 02-14-2024 End: 02-14-2024 ambulatory [facility] Facility:[facility] Start: 01-17-2024 End: 01-17-2024 ambulatory [facility] Facility:[facility] Start: 12-16-2023 End: 12-16-2023 ambulatory [facility] Facility:[facility] Start: 10-06-2023 End: 10-06-2023 Office outpatient [...] stick/tabl et rgnt non-auto w/o micrscp Cole Celetse DO Work Phone: Start: 11-12-2024 US OB [...] Td Vaccines (9 - Td or Tdap) [facility] Start: 08-08-2027 Screening for malign ant neoplasm of cervix Pap Smear [facility] Start: 11-22-2025 Adult BMI Screening Adult BMI Screen ing [facility] Start: 11-22-2025 Tobacco Screening Tobacco Screening [facility] Start: 05-06-2025 Influenza vaccination Influenz a Vaccine (Season Ended) [facility] Start: 12-26-2024 End: 12-26-2024 Professional / ancillary services management 12/26/2024 11:30 AM EDT Ancillary Procedure [facility] [address] [place] [id number] [facility] Start: 12-18-2024 End: 12-18-2024 Patient encounter procedure 12/18/2024 1:30 PM EDT Routine [facility] [address] [place] [address] Cole Alonso, [address] [place] [address] [facility] Start: 12-11-2024 End: 12-11-2024 Patient encounter procedure [facility] Comment on above: Arrived Start: 12-04-2024 End: 12-04-2025 US for US OB follow up transabdominal approach Imaging Routine Gestational diabetes mellitus (GDM) affecting Expected: 12/04/2024, Expires: 12/04/2025 [facility] Work Phone: Comment on above: Expected: 12/04/2024 , Expires: 12/04/2025 Start: 12-04-2024 End: 12-04-2024 Patient encounter procedure [facility] Comment on above: Arrived Start: 11-20-2024 End: 11-20-2024 Patient encounter procedure 11/20/2024 8:30 AM EDT Routine [facility] [address] [place] [phone] Cole Alonso, [address] [place] [address] [facility] Start: 11-06-2024 End: 11-06-2025 Measurement of glucose 1 hour after glucose challenge for glucose tolerance test Glucose tolerance, 1 hour Lab Routine Diabetes mellitus screening Expected: 11/06/2024 (Approximate), Expires: 11/06/2025 [facility] Comment on above: Expected: 11/06/2024 [...] 10/18/2024 1:00 PM EST Appointment [facility] [place] [address] [facility] [address] [place] [address] [facility] [place] Start: 10-08-2024 End: 10-08-2025 CBC panel - [...] [address] [facility] [place] [address] Cole Alonso, [address] [place] [address] [facility] Start: 09-10-2024 End: 09-10-2024 Professional / ancillary services management 09/10/2024 1:00 PM EST Ancillary Procedure [facility] [address] [place] [phone] [facility] Start: 08-08-2024 End: 02-06-2025 Alpha fetoprotein, maternal Alpha fetoprotein, maternal Lab Routine Second trimester 17 weeks gestation of Expected: 08/08/2024 (Approximate), Expires: 02/06/2025 [facility] Comment on above: Expected: 08/08/2024 [...] procedure 07/04/2024 3:00 PM EDT Office Visit [facility] Oral Surgery [address] [place] [address] Kenya Richter, DDS [address] [place] [address] [facility] Start: 06-07-2024 End: 06-07-2025 [...] [facility] [address] [place] [phone] [facility] Start: 06-07-2024 End: 06-07-2024 Professional / ancillary services management 06/07/2024 12:30 PM EDT Ancillary Procedure [facility] [place] [phone] [facility] Start: 06-05-2024 Influenza vaccination Influenza Vacc ine (#1) [facility] Start: 05-08-2024 End: 05-08-2024 Patient encounter procedure 05/08/2024 11:20 AM EDT Office Visit [facility] [address] [facility] [address] Cole Alonso, [address] [place] [address] Arrived [facility] Comment on above: Arrived Start: 05-06-2024 Influenza vaccination [facility] Start: 11-03-2023 End: 11-03-2023 Patient encounter procedure 11/03/2023 8:30 AM EST Office Visit [facility] [address] [facility] [address] Cole Alonso, [address] [place] [address] [facility] Start: 10-17-2023 End: 10-17-2023 Professional / ancillary services management 10/17/2023 8:30 AM EST Ancillary Procedure [facility] [address] [facility] [phone] [facility] Start: 05-06-2023 COVID-19 Vaccine ( season) COVID-19 Vaccine ( season) [facility] Start: 2019 Screening for malign ant neoplasm of cervix Pap Smear [facility] Start: 2017 DTaP,Tdap and Td Vaccines (1 - Tdap) DTaP,Tdap and Td Vaccines (1 - Tdap) [facility] Start: 2017 Hepatitis A (HAV) Vaccine (optional start 19+ years) Hepatitis A (HAV) Vaccine (optional start 19+ years) [facility] Start: 2017 Hepatitis B vaccination Hepati tis B (HBV) Vaccine (1 of 3 - 19+ 3-dose series) [facility] Start: 2016 Adult BMI Follow Up Plan Adult BMI F ollow Up Plan [facility] Start: 2016 Adult BMI Screening Adult BMI Screen ing [facility] Start: 2016 Hepatitis C screening Hepatitis C An tibody [facility] Start: 2016 Tetanus + diphtheria + acellular pertussis vaccine (product) [facility]ap [facility] Start: 2013 Vaccination for volodymyr n papillomavirus HPV Vaccine (1 - 3-dose series) [facility] Start: 2010 Depression Screening Depression Scre ening [facility] Start: 2010 Tobacco Screening Tobacco Screening [facility] Antimullerian hormon e (AMH) Antimullerian hormone (AMH) Lab Routine Irregular periods/menstrual cycles Ordered: 10/06/2023 [facility] Comment on above: Ordered: 10/06/2023 Bacteria identified in Urine by Culture Urine culture Microbiology Routine Missed menses Ordered: 06/07/2024 [facility] Comment on above: Ordered: 06/07/2024 CBC W Auto Different ial panel - Blood CBC and differential Lab Routine PCOS (polycystic ovarian syndrome) Ordered: 10/06/2023 [facility] Comment on above: Ordered: 10/06/2023 CBC W Auto Different ial panel - Blood CBC and differential Lab Routine Missed menses , unspecified gestational age Ordered: 06/07/2024 [facility] Comment on above: Ordered: 06/07/2024 CHLAMYDIA TRACHOMATI S (GENITO/STI) CHLAMYDIA TRACHOMATIS (GENITO/STI) Lab Routine STD exposure Ordered: 08/08/2024 [facility] Comment on above: Ordered: 08/08/2024 Cytology Cervical or vaginal smear or scraping study Pap Smear Pathology and Cytology Routine Well woman exam with routine gynecological exam Ordered: 08/08/2024 [facility] Comment on above: Ordered: 08/08/2024 DHEA DHEA Lab Routine PCOS (polycystic ovarian syndrome) Ordered: 10/06/2023 [facility] Comment on above: Ordered: 10/06/2023 DHEA-sulfate DHEA-sulfate Lab Routine PCOS (polycystic ovarian syndrome) Ordered: 10/06/2023 [facility] Comment on above: Ordered: 10/06/2023 Follicle stimulating hormone Follicle stimulating hormone Lab Routine PCOS (polycystic ovarian syndrome) Ordered: 10/06/2023 [facility] Comment on above: Ordered: 10/06/2023 hCG, quantitative, hCG, quantitative, Lab Routine PCOS (polycystic ovarian syndrome) Ordered: 10/06/2023 [facility] Work Phone: Comment on above: Ordered: 10/06/2023 Hemoglobin A1c measurement Hemoglobin A1c Lab Routine Irregular periods/menstrual cycles Ordered: 10/06/2023 [facility] Comment on above: Ordered: 10/06/2023 Hemoglobin A1c/Hemoglobin.total in Blood Hemoglobin A1c Lab Routine Missed menses , unspecified gestational age Ordered: 06/07/2024 [facility] Comment on above: Ordered: 06/07/2024 Hepatitis B virus surface Ag [Presence] in Serum or Plasma by Immunoassay Hepatitis B surface antigen Lab Routine Missed menses , unspecified gestational age Ordered: 06/07/2024 [facility] Comment on above: Ordered: 06/07/2024 Hepatitis C virus Ab [Presence] in Serum or Plasma by Immunoassay Hepatitis C antibody Lab Routine Missed menses , unspecified gestational age Ordered: 06/07/2024 [facility] Comment on above: Ordered: 06/07/2024 HIV-1/HIV-2 antigen/antibody combination immunoassay HIV-1 and HIV-2 antibodies Lab Routine Missed menses , unspecified gestational age Ordered: 06/07/2024 [facility] Comment on above: Ordered: 06/07/2024 Luteinizing hormone Luteinizing hormone Lab Routine PCOS (polycystic ovarian syndrome) Ordered: 10/06/2023 [facility] Comment on above: Ordered: 10/06/2023 Neisseria gonorrhoea e DNA [Presence] in Unspecified specimen by ISHA with probe detection Neisseria gonorrhea DNA probe, direct Lab Routine STD exposure Ordered: 08/08/2024 [facility] Comment on above: Ordered: 08/08/2024 Reagin Ab [Presence] in Serum by RPR RPR Lab Routine Missed menses , unspecified gestational age Ordered: 06/07/2024 [facility] Comment on above: Ordered: 06/07/2024 Rubella antibody, IgG Rubella an tibody, IgG Lab Routine Missed menses , unspecified gestational age Ordered: 06/07/2024 [facility] Comment on above: Ordered: 06/07/2024 SURESWAB(R) ADVANCED VAGINITIS PLUS, TMA SURESWAB(R) ADVANCED VAGINITIS PLUS, TMA Pathology and Cytology Routine Vaginal discharge Ordered: 08/08/2024 [facility] Work Phone: Comment on above: Ordered: 08/08/2024 Thyrotropin [Units/volume] in Serum or Plasma TSH Lab Routine PCOS (polycystic ovarian syndrome) Ordered: 10/06/2023 [facility] Comment on above: Ordered: 10/06/2023 Thyroxine (T4) free [Mass/volume] in Serum or Plasma T4, free Lab Routine PCOS (polycystic ovarian syndrome) Ordered: 10/06/2023 [facility] Comment on above: Ordered: 10/06/2023 US for US PELVIS-TRANS VAG IF INDICATED Imaging Routine PCOS (polycystic ovarian syndrome) Ordered: 10/06/2023 [facility] Comment on above: Ordered: 10/06/2023 Immunizations Immunization Date Immunization Notes Care Provider Shaina marley 06-12-2020 influenza virus vacc ine, unspecified formulation Cole Alonso DO Work Phone: [facility] Payers Date Payer Category Payer Blue [employer] Blue [employer]ie juan Indemnity JAISON [id number] 2022 Medicaid [id number] 2022 Medicaid [id number] 1998 Unknown [id number] 2.16840.1.817619.3.579.2. 732 1998 Unknown [id number] 2.16840.1.448437.3.579.2. 1286 1998 Unknown [id number] 2.16840.1.806201.3.579.2. 1286 1998 Unknown [id number] 2.16.840.1.580378.3.579.2. 6 1998 Unknown [id number] 2.16.840.1.045831.3.579.2. 1998 Unknown [id number] 2.16.840.1.580637.3.579.2. 1998 Unknown [id number] 2.16.840.1.901894.3.579.2. 1998 Unknown [id number] 2.16.840.1.835131.3.579.2. 1998 Unknown [id number] 2.16.840.1.741003.3.579.2. 1998 Unknown [id number] 2.16.840.1.359589.3.579.2. 1998 Unknown [id number] 2.16.840.1.507502.3.579.2. 1998 Unknown [id number] 2.16.840.1.155034.3.579.2. 1998 Unknown [id number] 2.16.840.1.084209.3.579.2. 1998 Unknown [id number] 2.16.840.1.843113.3.579.2. 1998 Unknown [id number] 2.16.840.1.004975.3.579.2. 1998 Unknown [id number] 2.16.840.1.246152.3.579.2. 1258 1998 Unknown [id number] 2.16.840.1.703223.3.579.2. 1258 1998 Unknown [id number] 2.16.840.1.479568.3.579.2. 1258 1998 Unknown [id number] 2.16.840.1.284868.3.579.2. 1258 1998 Unknown [id number] 2.16.840.1.495165.3.579.2. 9 1998 Unknown [id number] 2.16.840.1.933759.3.579.2. 9 1998 Unknown [id number] 2.16.840.1.299247.3.579.2. 9 1998 Unknown [id number] 2.16.840.1.097000.3.579.2. 9 1998 Unknown [id number] 2.16.840.1.604613.3.579.2. 9 1998 Unknown [id number] 2.16.840.1.326989.3.579.2. 9 1998 Unknown [id number] 2.16.840.1.941341.3.579.2. 9 1998 Unknown [id number] 2.16.840.1.475454.3.579.2. 9 Social History Date Type Detail Facility Start: 09-15-2023 End: 05-08-2024 Tobacco smoking status [facility] Ex-smoker [facility] History of tobacco use [...] Sex Assigned At Not on file [facility] Tobacco smoking stat [facility] Tobacco smoking consumption unknown [facility] Start: 05-08-2024 End: 10-15-2024 Tobacco use and exposure Smokeless tobacco non-user [facility] Start: 04-20-2024 [facility] Start: 10-15-2024 End: 11-22-2024 Alcoholic beverage intake Ex-drinker (finding) [facility] Childcare Unknown [facility] Start: 12-03-2019 Sex Female (finding) [facility] Medical Equipment Procedure Code Equipment Code Equipment Origin al Text Equipment Identifier Dates Check blood gluc ose using test strips fasting and 1 hour after each meal. Four to 5 times a day per insurance preferences [id number] Start: 11-22-2024 Use it to check fingerstick blood glucose 4 times a day fasting and 1 hour after each meal. Dispensed per insurance preference [id number] Start: 11-22-2024 Use as instructed [id number] Start: 12-04-2024 Clinical Notes 10-06-2023 to 12-11-2024 [...] nursing note reviewed. Exam conducted with a career portals teacher present. Vitals: Estimated body mass index [...] Cole Alonso DO documented in this encounter [facility] 12-04-2024 History of Present illness Narrative Reason [...] of: NITISH Rojas documented in this encounter [facility] 12-03-2024 Note [facility] Note Reason for cardiology [...] Rfl: OneTouch Delica Plus Lancet 30 gauge [facility], , Disp: , Rfl: OneTouch Ultra Test strip, , Disp: , Rfl: OneTouch Ultra2 Meter [facility], , Disp: , Rfl: 0-SWUE-LFSPR ACID-OM3 ORAL, Take by mouth., Disp: , [...] she was starte (more content not included)... [facility] 11-22-2024 History of Present illness Narrative Headache/epigastric [...] and the other consultants, we search on [employer] and all the available care everywhere epic I did review all the imaging studies of the patient available on EMR, ordered by the primary care physician and the other business management consultant HABITS: Patient activity no restrictions, diet [...] patient is in complete care of her pantographer. Patient does not have appointment scheduled with us. Thank you for allowing me to participate in Sherly Astudillo . If there any questions please do not hesitate to contact us. Sincerely, AHMET SOLER MD Video Visit via Real-time Synchronous Audiovisual Provider Location: [facility] MAT[facility]- MEDICINE AT [address] [phone] Patient Location: Other Patient Location Continuing Education Director: None Video Visit Consent Statement: I discussed [...] that there are some limitations compared to [id number] evaluations. We elected to proceed. documented in this encounter [facility] 11-20-2024 History of Present illness Narrative [...] nursing note reviewed. Exam conducted with a career portals teacher present. Vitals: Estimated body mass index [...] Cole Alonso DO documented in this encounter [facility] 11-06-2024 History of Present illness Narrative Reason [...] of: NITISH Rojas documented in this encounter [facility] 10-24-2024 Note [facility] Note Reason for cardiology [...] mouth in the morning., Disp: , Rfl: 3-XMNB-EKKLD ACID-OM3 ORAL, Take by mouth., Disp: , [...] to 6 weeks Angel Luis Evans MD,[facility] 10-22-2024 History of Present illness Narrative [...] nursing note reviewed. Exam conducted with a career portals teacher present. Vitals: Estimated body mass index [...] started. Orders sent to H Scheduling and [facility] to reach out to patient to schedule. Patient to return to clinic in 2 weeks for routine OIB appointment. Documented by Rose Latham LPN on behalf of: Cole Alonso DO documented in this encounter [facility] 10-08-2024 History of Present illness Narrative Reason for Appointment: Patient ID: Sherly Astudillo is a 24 y.o. female who presents for Routine Visit Patient presents today for Return OB appointment. MEDICATIONS Current Outpatient Medications Medication Instructions clotrimazole (Mycelex) 10 MG jacob 1 lozenge(s), Oral, 5x/Day, x 10 day(s), # 50 lozenge(s), 0 Refill(s), 10/16/24 8:59:00 AM [facility], Pharmacy: [facility] [id number], 1 lozenge(s) Oral 5x/Day,x10 day(s), 170.18, cm, [...] of: NITISH Rojas documented in this encounter [facility] 10-06-2024 Note Patient Education Ma [...] Follow these instructions at home: ? Take hrkf-dqe-vlfhjxz and prescription medicines only as told by [...] provider. Document Revised: 11/30/2021 Document Reviewed: 11/30/2021 [employer] Patient Education ? 2023 [employer]. Infectious Disease Oral Thrush, Adult Oral thrush, [...] difficulty fighting infection (more content not included)... [facility] 09-24-2024 Note Patient Education Ma terials [...] these instructions at home: Medicines ? Take ksru-kvo-qovucwx and prescription medicines only as told by [...] and water are not available, use hand consumer educator. ? Do not touch your eyes, nose, [...] may represent a (more content not included)... [facility] 09-10-2024 History of Present illness Narrative [...] nursing note reviewed. Exam conducted with a career portals teacher present. Vitals: Estimated body mass index [...] Cole Alonso DO documented in this encounter [facility] 08-08-2024 History of Present illness [...] Cole Alonso DO documented in this encounter [facility] 07-10-2024 History of Present illness [...] nursing note reviewed. Exam conducted with a career portals teacher present. Vitals: Estimated body mass index [...] or undercooked meat, and stay away from [facility]. Patient has been consulted regarding any [...] Cole Alonso DO documented in this encounter [facility] 07-05-2024 Note Patient Education Ma [...] and use condoms. General instructions ? Take rqhp-cjx-cmrjayt and prescription medicines only as told by [...] provider. Document Revised: 02/19/2021 Document Reviewed: 02/19/2021 [employer]ictor[employer] Patient Education ? 2023 [employer]. [facility] 06-07-2024 History of Present illness Narrative [...] both done at the same time at [facility] at 10 weeks . Pt desires zofran due to nausea in this . Follow Up: Patient is to have labs drawn at directed and return to office for initial OB appointment with provider. Patient may call office as needed with any concerns or questions. Nurse Visit Completed by: Bernadette Reeder MA documented in this encounter [facility] 05-28-2024 Note Education Materials Orthopedics [...] not too tight. General instructions ? Take ylwh-ute-klkksqo and prescription medicines only as told by [...] provider. Document Revised: 11/09/2021 Document Reviewed: 11/09/2021 Pictorama Patient Education ? 2023 [employer]. Sciatica Sciatica is pain, weakness, tingling, or [...] (pelvis). ? . (more content not included)... [facility] 05-28-2024 Note Patient Education Ma terials Follows: [facility] 05-08-2024 History of Present illness Narrative [...] Cole Alonso DO documented in this encounter [facility] 04-24-2024 History of Present illness Narrative Images from the original note were not included. documented in this encounter [facility] 10-06-2023 History of Present illness Narrative [...] nursing note reviewed. Exam conducted with a career portals teacher present. Vitals: Estimated body mass index [...] sent to [facility] in [place]. Documented by Rose Lahtam LPN on behalf of: Cole Alonso DO documented in this encounter [facility] Healthcare Evaluation note Diagnosis Irregular periods/menstrual [...] or unspecified fetus documented in this encounter [facility] HealthcareEvaluation note* Diagnosis Third trimester state, incidental 30 weeks gestation of Excessive growth affecting management of in third trimester, single or unspecified fetus Diabetes mellitus screening Screening for diabetes mellitus documented in this encounter [facility] HealthcareEvaluation note* Diagnosis Polyhydramnios affecting in third trimester- Primary PCOS (polycystic ovarian syndrome) Polycystic ovaries documented in this encounter [facility]* Diagnosis Third trimester state, incidental [...] [facility] Healthcare[facility]ructionsNot on filedocumented in [facility]Not on filedocumented in [facility] Summary Purpose Family History No Family [...] third molar tooth Kenya Richter, DDS [address] [place] [address] Referral ID Status Reason Start Date Expiration Date V isits Requested Visits Authorized [id number] Pending Review 04/24/2024 04/24/2025 1 1 Scheduling [...] your procedure, you will be contacted with [id number] costs or next steps. All self-pay payments [...] the procedure: You also MUST have a bulk driver/escort >18yrs old present to take you [...] section and content) DATE CREATED AUTHOR 01/08/2022 [facility] DATE CREATED AUTHOR AUTHOR'S ORGANIZ ATION 09/23/2024 [facility] DATE CREATED AUTHOR AUTHOR'S ORGANIZ ATION 11/24/2024 [facility] DATE CREATED AUTHOR AUTHOR'S ORGANIZ ATION 11/24/2024 [facility] DATE CREATED AUTHOR AUTHOR'S ORGANIZ ATION 12/11/2024 [facility] DATE CREATED AUTHOR AUTHOR'S ORGANIZ ATION 12/12/2024 [facility] [facility] DATE CREATED AUTHOR AUTHOR'S ORGANIZ ATION 12/12/2024 [facility] EPIC Reason for Visit (unrecogniz ed section and content) Reason Comments Discuss cycles Reason Comments Amenorrhea Reason Comments Routine Visit Reason Comments Well Women Visit Routine Visit STI Screening Reason Comments Abdominal Pain Reason Comments polyhydramnios Reason Comments Routine Visit Care Teams (unrecognized sec tion and content) Residential Installer Relationship Specialty Start Date End Date Radha Gomez MD [address] [place] [address] [id number] PCP - General Pediatrics 10/06/23 Residential Installer Relationship Specialty Start Date End Date Radha Gomez MD [address] [place] [address] [phone] PCP - General Pediatrics 10/06/23 Residential Installer Relationship Specialty Start Date End Date Radha Gomez MD [address] [place] [address] [id number] PCP - General Pediatrics 10/06/23 Residential Installer Relationship Specialty Start Date End Date Radha Gomez MD [address] [place] [address] [phone] PCP - General Pediatrics 10/06/23 Residential Installer Relationship Specialty Start Date End Date Radha Gomez MD [address] [place] [address] [id number] PCP - General Pediatrics 10/06/23 Residential Installer Relationship Specialty Start Date End Date Radha Gomez MD [address] [place] [address] [phone] PCP - General Pediatrics 10/06/23 Residential Installer Relationship Specialty Start Date End Date Radha Gomez MD [address] [place] [address] [id number] PCP - General Pediatrics 10/06/23 Residential Installer Relationship Specialty Start Date End Date Radha Gomez MD [address] [place] [address] [phone] PCP - General Pediatrics 10/06/23 Residential Installer Relationship Specialty Start Date End Date Radha Gomez MD [address] [place] [address] [phone] PCP - General Pediatrics 10/06/23 Residential Installer Relationship Specialty Start Date End Date Radha Gomez MD [address] [place] [address] [phone] PCP - General Pediatrics 10/06/23 Residential Installer Relationship Specialty Start Date End Date Radha Gomez MD [address] [place] [address] [phone] PCP - General Pediatrics 10/06/23 Residential Installer Relationship Specialty Start Date End Date Radha Gomez MD [address] [place] [address] [phone] PCP - General Pediatrics 10/06/23 Residential Installer Relationship Specialty Start Date End Date Radha Gomez MD [address] [place] [address] [phone] PCP - General Pediatrics 10/06/23 Residential Installer Relationship Specialty Start Date End Date Radha Gomez MD [address] [place] [address] [id number] PCP - General Pediatrics 10/06/23 Residential Installer Relationship Specialty Start Date End Date Radha Gomez MD [address] [place] [address] [phone] PCP - General Pediatrics 10/06/23 FOR RECORDS [...] BE BASED ON THE PRIMARY CLINICAL RECORDS. [facility] [employer] [facility]. provides no warranty or guarantee of the accuracy or completeness of information in this document.
--- NOTE | 2024-12-17 11:08 | US_ITS ---
The [address] [address] Patient Name: SHERLY ERICKSON MRN: [id number] date: 2000 Sex: F Assigned Patient Location: [facility] Current Patient Location: [facility] Accession/Order Number: [id number] Exam Date: 12/17/2024 12:05 Report Date: 12/17/2024 12:09 At the request of: JACKIE FOREMAN DO Procedure: US OB BPP w non-stress BIOPHYSICAL PROFILE: CLINICAL INFORMATION: EXCESSIVE GROWTH AFFECTING O36.63X0 COMPARISON: 12/10/2024 There is a single live intrauterine gestation in cephalic presentation. The reported gestational age is 36 weeks 3 days. The heart rate measures 141 beats per minute. FINDINGS: TONE: 1 or more episodes of activity extension and flexion of extremity or opening and closing of the hand [Y] 2/2 GROSS BODY MOVEMENTS: 3 or more discrete body or limb movements [Y] 2/2 BREATHING MOVEMENTS: 1 or more episodes of breathing lasting at least 30 seconds [N] 0/2 JET: A single deepest vertical pocket of amniotic fluid greater than 2 cm [Y] 2/2 JET: 25.9 cm. This is greater than 95th percentile. Total score: 6/8 US/US OB BPP w non-stress IMPRESSION: BIOPHYSICAL PROFILE 6 OUT OF 8 WITH NO BREATHING. Continued POLYHYDRAMNIOS Impression dictated by: Bailey Beasley M.D.12/17/2024 12:09 PM Dictation Location: [place] [address] Electronically authenticated by: [id number] Y Date: 12/17/2024 12:09
[2024-12-17 12:16] VITALS: BP 109/79; PULSE 93
== END 2024-12-17 12:19 | disposition home or self-care (01) ==
LOC: US 11:01 → FBC 11:06
PROVIDERS: PCP Family Medicine; Visit Provider Obstetrics & Gynecology
DX: O36.63X0 Maternal care for excessive fetal growth, third trimester, not applicable or unspecified (principal); Z3A.36 36 weeks gestation of pregnancy
CPT/HCPCS: 76818

== ENCOUNTER 2024-12-18 19:39 | Outpatient (REF) | payer MEDICAID, SELFPAY ==
--- OUTSIDE RECORDS SUMMARY | 2024-12-18 19:50 | XMS_ITS | CCD ---
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 Inject before meals. 3 mL 12/12/2024 01/11/2025 Active insulin isophane, human 70 unt/ml / insulin, regular, human 30 unt/ml injectable suspension (10 sources) Insulin Start: 12-04-2024 End: 01-11-2025 inject 5 [IU] by subcutaneous injection in the morning insulin NPH-insulin regular (NovoLIN) (70-30) 100 UNIT/ML injection Indications: Gestational Diabetes Inject 5 Units under the skin in the morning and 5 Units in the evening. Inject before meals. 3 mL 12/12/2024 01/11/2025 Active isopropyl alcohol 0.7 ml/ml medicated pad (4 sources) Start: 12-12-2024 Alcohol Swabs (Alcohol Prep Pad) 70 % pads Indications: Gestational diabetes mellitus (GDM), antepartum, gestational diabetes method of control unspecified , Elevated glucose tolerance test Apply 1 Pad topically Daily Use four times daily to check FSBS. 150 each 3 12/12/2024 Active magnesium oxide 400 mg oral tablet (15 sources) Start: 11-07-2024 End: 11-07-2025 take 1 [...] MV & Min w/FA-DHA ( GUMMIES PO) (14 sources) MV & Mi n w/FA-DHA ( GUMMIES PO) Take by mouth Active Completed/Discontinued Medications Medication Drug Class(es) Dates Sig (Normalized) Sig (Original) clotrimazole 10 mg oral lozenge (6 sources) Azole Antifungal Start: 10-06-2024 End: 10-22-2024 clotrimazole (Mycelex) 10 MG jacob 1 lozenge(s), Oral, 5x/Day, x 10 day(s), # 50 lozenge(s), 0 Refill(s), 10/16/24 8:59:00 AM MITTEN STITCHER, Pharmacy: [facility] [id number], 1 lozenge(s) Oral 5x/Day,x10 day(s), 170.18, cm, [...] [35 weeks gestation of ] 12-11-2024 Episodic Residual codes; unclassified (2 sources) Gestation period, 36 weeks; Translations: [36 weeks gestation of ] 12-18-2024 Episodic Past or Other Problems Problem Classification [...] Range Facility Urinalysis macro (dipstick) panel (U)on 12-18-2024 Bilirubin, UA Negative Negative - 4(70) +++ mg/dL [facility] Blood, UA Negative Negative - 50 Osvaldo/mcL [facility] Clarity, UA Clear [facility] Color, UA Yellow [facility] Glucose, UA Negative Negative - 2000(110) ++++ mg/dL [facility] Interpretation and review of laboratory results Abnormal [facility] Ketones, UA Negative Negative - 160(16) ++++ mg/dL [facility] Leukocytes, UA Positive Negative - 500+++ Edison/mcL [facility] Comment on above: small Nitrite, UA Negative Negative - Positive [facility] pH, UA 7 5 - 9 [facility] Protein, UA Negative Negative - 2000(20) ++++ mg/dL [facility] Spec Grav, UA 1.015 1 - 1.03 [facility] Urobilinogen, UA 1.0 0.2 - 12 mg/dL [facility] US OB BPP W NON-STRESS on 12-17-2024 [place] [address] Ultrasound Report Signed Patient: SHERLY ASTUDILLO MR#: [id number] : 2000 Acct:[id number] Age/Sex: 24 / F ADM Date: 12/17/24 Loc: [place] [address]: Cole Alonso D.O. Ordering Physician: Cole Alonso D.O. Date of Service: 12/17/24 Procedure(s): US OB BPP w non-stress Accession Number(s): [id number] cc: RADHA GOMEZ ; Cole Alonso D.O. The [address] [address] Patient Name: SHERLY ASTUDILLO MRN: [id number]:[id number] date: 2000 Sex: F Assigned Patient Location: [facility] Current Patient Location: [facility] Accession/Order Number: [id number] Exam Date: 12/17/2024 12:05 Report Date: 12/17/2024 12:09 At the request of: COLE ALONSO DO Procedure: US OB BPP w non-stress BIOPHYSICAL PROFILE: CLINICAL INFORMATION: EXCESSIVE GROWTH AFFECTING O36.63X0 COMPARISON: 12/10/2024 There is a single live intrauterine gestation in cephalic presentation. The reported gestational age is 36 weeks 3 days. The heart rate measures 141 beats per minute. FINDINGS: TONE: 1 or more episodes of activity extension and flexion of extremity or opening and closing of the hand [Y] 2/2 GROSS BODY MOVEMENTS: 3 or more discrete body or limb movements [Y] 2/2 BREATHING MOVEMENTS: 1 or more episodes of breathing lasting at least 30 seconds [N] 0/2 JET: A single deepest vertical pocket of amniotic fluid greater than 2 cm [Y] 2/2 JET: 25.9 cm. This is greater than 95th percentile. Total score: 6/8 US/US OB BPP w non-stress IMPRESSION: BIOPHYSICAL PROFILE 6 OUT OF 8 WITH NO BREATHING. Continued POLYHYDRAMNIOS Impression dictated by: Bailey Beasley M.D.12/17/2024 12:09 PM Dictation Location: [place] [address] Electronically authenticated by: [id number] Y Date: 12/17/2024 12:09 Dictated By: Bailey Beasley M.D. Signed By: 12/17/24 1212 DD/ 1209 TD/TT: Hearing Impaired Teacher: [facility] Radiology, Radiologparam rangel MD - 12/17/2024 [place] [address] Ultrasound Report Signed Patient: SHERLY ASTUDILLO MR#: [id number] : 2000 Acct:[id number] Age/Sex: 24 / F ADM Date: 12/17/24 Loc: [facility] 250-[address]: Cole Alonso D.O. Ordering Physician: Cole Alonso D.O. Date of Service: 12/17/24 Procedure(s): US OB BPP w non-stress Accession Number(s): [id number] cc: RADHA GOMEZ ; Cole Alonso D.O. [place] [id number] Patient Name: SHERLY ASTUDILLO MRN: [id number] date: 2000 Sex: F Assigned Patient Location: [facility] Current Patient Location: [facility] Accession/Order Number: [id number] Exam Date: 12/17/2024 12:05 Report Date: 12/17/2024 12:09 At the request of: COLE ALONSO DO Procedure: US OB BPP w non-stress BIOPHYSICAL PROFILE: CLINICAL INFORMATION: EXCESSIVE GROWTH AFFECTING O36.63X0 COMPARISON: 12/10/2024 There is a single live intrauterine gestation in cephalic presentation. The reported gestational age is 36 weeks 3 days. The heart rate measures 141 beats per minute. FINDINGS: TONE: 1 or more episodes of activity extension and flexion of extremity or opening and closing of the hand [Y] 2/2 GROSS BODY MOVEMENTS: 3 or more discrete body or limb movements [Y] 2/2 BREATHING MOVEMENTS: 1 or more episodes of breathing lasting at least 30 seconds [N] 0/2 JET: A single deepest vertical pocket of amniotic fluid greater than 2 cm [Y] 2/2 JET: 25.9 cm. This is greater than 95th percentile. Total score: 6/8 US/US OB BPP w non-stress IMPRESSION: BIOPHYSICAL PROFILE 6 OUT OF 8 WITH NO BREATHING. Continued POLYHYDRAMNIOS Impression dictated by: Bailey Beasley M.D.12/17/2024 12:09 PM Dictation Location: [place] [address] Electronically authenticated by: [id number] Y Date: 12/17/2024 12:09 Dictated By: Bailey Beasley M.D. Signed By: 12/17/24 1212 DD/ 1209 TD/TT: Hearing Impaired Teacher: [facility] Radiology Study observation (narrative) [facility] OB BPP W NON-STRESS Ordered By: Radiologist Radiology on 12-17-2024 [facility] Work Phone: [employer] 12-11-2024 Outside Records [id number] [facility] [id number]#1.0 0OTGTIFF Normal [facility] Urinalysis macro (dipstick) panel (U)on 12-11-2024 Bilirubin, UA Negative Negative - 4(70) +++ mg/dL [facility] Blood, UA Negative Negative - 50 Osvaldo/mcL [facility] Clarity, UA Clear [facility] Color, UA Yellow [facility] Glucose, UA Negative Negative - 2000(110) ++++ mg/dL [facility] Interpretation and review of laboratory results Normal [facility] Ketones, UA Negative Negative - 160(16) ++++ mg/dL [facility] Leukocytes, UA Negative Negative - 500+++ Edison/mcL [facility] Nitrite, UA Negative Negative - Positive [facility] pH, UA 6 5 - 9 [facility] Protein, UA Negative Negative - 2000(20) ++++ mg/dL [facility] Spec Grav, UA 1.025 1 - 1.03 [facility] Urobilinogen, UA 1.0 0.2 - 12 mg/dL [facility] US OB BPP W NON-STRESS on 12-10-2024 [place] [address] Ultrasound Report Signed Patient: SHERLY ASTUDILLO MR#: [id number] : 2000 Acct:[id number] Age/Sex: 24 / F ADM Date: 12/10/24 Loc: Attending Dr: Cole Alonso D.O. Ordering Physician: Cole Alonso D.O. Date of Service: 12/10/24 Procedure(s): US OB BPP w non-stress Accession Number(s): [id number] cc: RADHA GOMEZ ; Cole Alonso D.O. The [address] [address] Patient Name: SHERLY ASTUDILLO MRN: [id number] date: 2000 Sex: F Assigned Patient Location: Current Patient Location: Accession/Order Number: [id number] Exam Date: 12/10/2024 13:07 Report Date: 12/10/2024 13:08 At the request of: COLE ALONSO DO Procedure: US OB BPP w non-stress Biophysical profile. Reason for exam: Excessive growth. COMPARISON: BPP 11/19/2024. TECHNIQUE: Transabdominal imaging of the gravid uterus was obtained. FINDINGS: Cook Sauce reports a BPP of 8 out of 8. Abnormal JET of 29.8 cm. heart rate 131 bpm. US/US OB BPP w non-stress IMPRESSION: BPP 8 out of 8. Polyhydramnios. Impression dictated by: Alexy Sparks Jr., D.O.12/10/2024 1:08 PM Dictation Location: [place] [address] Electronically authenticated by: [id number] Y Date: 12/10/2024 13:08 Dictated By: Alexy Sparks M.D. Signed By: 12/10/24 1310 DD/ 1308 TD/TT: Hearing Impaired Teacher: [facility] Radiology, Radiologi MD juan carlos - 12/10/2024 [place] [address] Ultrasound Report Signed Patient: SHERLY ASTUDILLO MR#: [id number] : 2000 Acct:[id number] Age/Sex: 24 / F ADM Date: 12/10/24 Loc: US Attending Dr: Cole Alonso D.O. Ordering Physician: Cole Alonso D.O. Date of Service: 12/10/24 Procedure(s): US OB BPP w non-stress Accession Number(s): [id number] cc: RADHA GOMEZ ; Cole Alonso D.O. The [place] [id number] Patient Name: SHERLY ASTUDILLO MRN: [facility]:[id number] date: 2000 Sex: F Assigned Patient Location: US Current Patient Location: Accession/Order Number: [id number] Exam Date: 12/10/2024 13:07 Report Date: 12/10/2024 13:08 At the request of: COLE CELESTE DO Procedure: US OB BPP w non-stress Biophysical profile. Reason for exam: Excessive growth. COMPARISON: BPP 11/19/2024. TECHNIQUE: Transabdominal imaging of the gravid uterus was obtained. FINDINGS: Cook Sauce reports a BPP of 8 out of 8. Abnormal JET of 29.8 cm. heart rate 131 bpm. US/US OB BPP w non-stress IMPRESSION: BPP 8 out of 8. Polyhydramnios. Impression dictated by: Alexy Sparks Jr., D.O.12/10/2024 1:08 PM Dictation Location: [place] [address] Electronically authenticated by: [id number] Y Date: 12/10/2024 13:08 Dictated By: Alexy Sparks M.D. Signed By: 12/10/24 1310 DD/ 1308 TD/TT: Hearing Impaired Teacher: [facility] Radiology Study observation (narrative) [facility] US OB BPP W NON-STRESS Ordered By: Radiologist Radiology on 12-10-2024 [facility] [employer] Work Phone: [employer] 12-05-2024 Outside Records [id number]#1.00O TGTIFF [facility] Office Visiton 12-03-2024 Follow-up visit [id number] Sherly Astudillo 2000 F Date Provider Department Center 12/03/2024 [address]-[id number] LUIS [facility] Family History Problem Relation Age of Onset Diabetes Mother Diabetes Maternal Grandmother Diabetes Maternal Grandfather Family Status - Relation Status Age at Mother Maternal Grandmother Maternal Grandfather Level of Service:96514 [place] OFFICE/OUTPATIENT ESTABLISHED LOW MDM 20 MIN Reason for Visit and Comments: Hypertension [621065] Hyperlipidemia [182] Normal [facility] US OB BPP W NON-STRESS on 12-03-2024 [facility] [address] [place] [address] Ultrasound Report Signed Patient: SHERLY ASTUDILLO MR#: [id number] : 2000 Acct:[id number] Age/Sex: 24 / F ADM Date: 12/03/24 Loc: US Attending Dr: Cole Alonso D.O. Ordering Physician: Cole Alonso D.O. Date of Service: 12/03/24 Procedure(s): US OB BPP w non-stress Accession Number(s): [id number] cc: RADHA GOMEZ ; Cole Alonso D.O. The [place] [id number] Patient Name: SHERLY ASTUDILLO MRN: [facility]:[id number] date: 2000 Sex: F Assigned Patient Location: [facility] Current Patient Location: Accession/Order Number: [id number] Exam Date: 12/03/2024 14:34 Report Date: 12/03/2024 [...] Robert Hui M.D.12/03/2024 2:36 PM Dictation Location: [place] [address] Electronically authenticated by: [id number] Y Date: 12/03/2024 14:36 Dictated By: Robert Hui D.O. Signed By: 12/03/24 1438 DD/ 1436 TD/TT: Hearing Impaired Teacher: [facility] Radiology Radiologparam rangel MD - 12/03/2024 [place] [address] Ultrasound Report Signed Patient: SHERLY ASTUDILLO MR#: [id number] : 2000 Acct:[id number] Age/Sex: 24 / F ADM Date: 12/03/24 Loc: US Attending Dr: Cole Alonso D.O. Ordering Physician: Cole Alonso D.O. Date of Service: 12/03/24 Procedure(s): US OB BPP w non-stress Accession Number(s): [id number] cc: RADHA GOMEZ ; Cole Alonso D.O. [place] [address] Patient Name: SHERLY ASTUDILLO MRN: [facility]:[id number] date: 2000 Sex: F Assigned Patient Location: [facility] Current Patient Location: Accession/Order Number: [id number] Exam Date: 12/03/2024 14:34 Report Date: 12/03/2024 [...] Robert Hui M.D.12/03/2024 2:36 PM Dictation Location: [place] [address] Electronically authenticated by: [id number] Y Date: 12/03/2024 14:36 Dictated By: Robert Hui D.O. Signed By: 12/03/24 1438 DD/ 143 TD/TT: Hearing Impaired Teacher: [facility] Radiology Study observation (narrative) [facility] US OB BPP W NON-STRESS Ordered By: Radiologist Radiology on 12-03-2024 [facility] [employer] Work Phone: [employer] 11-27-2024 Outside Records [id number]#1.00O [facility] US OB BPP W NON-STRESS on 11-26-2024 [place] [address] Ultrasound Report Signed Patient: SHERLY ASTUDILLO MR#: [id number] : 2000 Acct:[id number] Age/Sex: 24 / F ADM Date: 11/26/24 Loc: US Attending Dr: Cole Alonso D.O. Ordering Physician: Cole Alonso D.O. Date of Service: 11/26/24 Procedure(s): US OB BPP w non-stress Accession Number(s): [id number] cc: RADHA GOMEZ ; Cole Alonso D.O. The [place] [address] Patient Name: SHERLY ASTUDILLO MRN: [facility]:[id number] date: 2000 Sex: F Assigned Patient Location: US Current Patient Location: Accession/Order Number: [id number] Exam Date: 11/26/2024 14:21 Report Date: 11/26/2024 14:21 At the request of: COLE ALONSO DO Procedure: US OB BPP w non-stress Biophysical profile. Reason for exam: Excessive growth. COMPARISON: BPP 11/19/2024. TECHNIQUE: Transabdominal imaging of the gravid uterus was obtained. FINDINGS: [employer] Sauce reports a BPP of 8 out of 8. Normal JET of 22.6 cm. heart rate 146 bpm. US/US OB BPP w non-stress IMPRESSION: BPP 8 out of 8. Impression dictated by: Alexy Sparks Jr., D.O.11/26/2024 2:21 PM Dictation Location: [place] [address] Electronically authenticated by: [id number] Y Date: 11/26/2024 14:21 Dictated By: Alexy Sparks M.D. Signed By: 11/26/24 1424 DD/ 142 TD/TT: Hearing Impaired Teacher: [facility] Radiology, Radiologparam rangel MD - 11/26/2024 The [place] [id number] Ultrasound Report Signed Patient: SHERLY ASTUDILLO MR#: [id number] : 2000 Acct:[id number] Age/Sex: 24 / F ADM Date: 11/26/24 Loc: US Attending Dr: Cole Alonso D.O. Ordering Physician: Cole Alonso D.O. Date of Service: 11/26/24 Procedure(s): US OB BPP w non-stress Accession Number(s): [id number] cc: RADHA GOMEZ ; Cole Alonso D.O. [place] [address] Patient Name: SHERLY ASTUDILLO MRN: [facility]:[id number] date: 2000 Sex: F Assigned Patient Location: US Current Patient Location: Accession/Order Number: [id number] Exam Date: 11/26/2024 14:21 Report Date: 11/26/2024 14:21 At the request of: COLE ALONSO DO Procedure: US OB BPP w non-stress Biophysical profile. Reason for exam: Excessive growth. COMPARISON: BPP 11/19/2024. TECHNIQUE: Transabdominal imaging of the gravid uterus was obtained. FINDINGS: Cook Sauce reports a BPP of 8 out of 8. Normal JET of 22.6 cm. heart rate 146 bpm. US/US OB BPP w non-stress IMPRESSION: BPP 8 out of 8. Impression dictated by: Alexy Sparks Jr., D.O.11/26/2024 2:21 PM Dictation Location: [place] [address] Electronically authenticated by: [id number] Y Date: 11/26/2024 14:21 Dictated By: Alexy Sparks M.D. Signed By: 11/26/24 1424 DD/ 20 TD/TT: Hearing Impaired [facility] (narrative) [facility] US OB BPP W NON-STRESS Ordered By: Radiologist Radiology on 11-26-2024 [facility] Work Phone: Legal Documentson 11-20-2024 Legal Documents [id number]#1.00O [facility]inal[facility] macro (dipstick) panel (U)on 11-20-2024 Bilirubin, UA Negative Negative - 4(70) +++ mg/dL [facility] Blood, UA Negative Negative - 50 Osvaldo/mcL [facility] Clarity, UA Clear [facility] Color, UA Yellow [facility] Glucose, UA Negative Negative - 1999(110) ++++ mg/dL [facility] Interpretation and review of laboratory results Normal [facility] Ketones, UA Negative Negative - 160(16) ++++ mg/dL [facility] Leukocytes, UA Negative Negative - 500+++ Edison/mcL [facility] Nitrite, UA Negative Negative - Positive [facility] pH, UA 6.5 5 - 9 [facility] Protein, UA Negative Negative - 1999(20) ++++ mg/dL [facility] Spec Grav, UA 1.02 1 - 1.03 [facility] Urobilinogen, UA 0.2 0.2 - 12 mg/dL [facility] [employer] 11-13-2024 Outside Records [id number]#1.00O [facility] US OB BPP W NON-STRESS on 11-12-2024 [place] [address] Ultrasound Report Signed Patient: SHERLY ASTUDILLO MR#: [id number] : 2000 Acct:[id number] Age/Sex: 24 / F ADM Date: 11/12/24 Loc: US Attending Dr: Cole Alonso D.O. Ordering Physician: Cole Alonso D.O. Date of Service: 11/12/24 Procedure(s): US OB BPP w non-stress Accession Number(s): [id number] cc: RADHA GOMEZ ; Cole Alonso D.O. [address] [address] Patient Name: SHERLY ASTUDILLO MRN: [facility]:[id number] date: 2000 Sex: F Assigned Patient Location: Current Patient Location: Accession/Order Number: [id number] Exam Date: 11/12/2024 13:57 Report Date: 11/12/2024 13:58 At the request of: COLE ALONSO DO Procedure: US OB BPP w non-stress BIOPHYSICAL PROFILE: CLINICAL INFORMATION: Excessive growth COMPARISON: Pelvic ultrasound 06/07/2024 There is a single live intrauterine gestation in breech presentation. The reported gestational age is 31 weeks 3 days. The heart rate [id number] beats per minute. FINDINGS: TONE: 1 or [...] Bailey Beasley M.D.11/12/2024 1:58 PM Dictation Location: [place] [address] Electronically authenticated by: [id number] Y Date: 11/12/2024 13:58 Dictated By: Bailey Beasley M.D. Signed By: 11/12/24 1401 DD/ 1358 TD/TT: Hearing Impaired Teacher: [facility] Radiology, Radiologi MD juan carlos - 11/12/2024 [place] [address] Ultrasound Report Signed Patient: SHERLY ASTUDILLO MR#: [id number] : 2000 Acct:[id number] Age/Sex: 24 / F ADM Date: 11/12/24 Loc: US Attending Dr: Cole Alonso D.O. Ordering Physician: Cole Alonso D.O. Date of Service: 11/12/24 Procedure(s): US OB BPP w non-stress Accession Number(s): [id number] cc: RADHA GOMEZ ; Cole Alonso D.O. The [place] [id number] Patient Name: SHERLY ASTUDILLO MRN: [facility]:[id number] date: 2000 Sex: F Assigned Patient Location: US Current Patient Location: Accession/Order Number: [id number] Exam Date: 11/12/2024 13:57 Report Date: 11/12/2024 13:58 At the request of: COLE ALONSO DO Procedure: US OB BPP w non-stress BIOPHYSICAL PROFILE: CLINICAL INFORMATION: Excessive growth COMPARISON: Pelvic ultrasound 06/07/2024 There is a single live intrauterine gestation in breech presentation. The reported gestational age is 31 weeks 3 days. The heart rate [id number] beats per minute. FINDINGS: TONE: 1 or [...] Bailey Beasley M.D.11/12/2024 1:58 PM Dictation Location: [place] [address] Electronically authenticated by: [id number] Y Date: 11/12/2024 13:58 Dictated By: Bailey Beasley M.D. Signed By: 11/12/24 1401 DD/ 1358 TD/TT: Hearing Impaired Teacher: [facility] Radiology Study observation (narrative) [facility] OB BPP W NON-STRESS Ordered By: Radiologist Radiology on 11-12-2024 [facility] Work Phone: [employer] 11-09-2024 Outside Records [id number]#1.00O TGTIFF Normal [facility] Urinalysis macro (dipstick) panel (U)on 11-06-2024 Bilirubin, UA Negative Negative - 4(70) +++ mg/dL [facility] Blood, UA Negative Negative - 50 Osvaldo/mcL [facility] Clarity, UA Clear [facility] Color, UA Yellow [facility] Glucose, UA Negative Negative - 1999(110) ++++ mg/dL [facility] Interpretation and review of laboratory results Normal [facility] Ketones, UA Negative Negative - 160(16) ++++ mg/dL [facility] Leukocytes, UA Negative Negative - 500+++ Edison/mcL [facility] Nitrite, UA Negative Negative - Positive [facility] pH, UA 6.5 5 - 9 [facility] Protein, UA Negative Negative - 1999(20) ++++ mg/dL [facility] Spec Grav, UA 1.02 1 - 1.03 [facility] Urobilinogen, UA 0.2 0.2 - 12 mg/dL [facility] Office/Clinic Noteon 025 Office/Clinic Note [...] 124.010 kg Body Mass Index 42.82 kg/m2 [place] Body Weight Calculated 61.6 kg BSA Measured [...] lesion. Impression and Plan Diagnosis Tinea corporis (FOS92-ED B35.4). Plan: Will treat with topical antifungal over the next 7 to 10 days.. Orders Orders Pharmacy: ketoconazole 2% topical cream (Prescribe): 1 zoran, Topical, Daily, for 10 day(s), 30 gm, 0 Refill(s). Orders Evaluation and Management: [id number] Office visit - established pt, Level 3 (Order): 10/25/2024 13:24 EST, Qty: 1, Tinea corporis - Eustachian tube dysfunction. Diagnosis Eustachian tube dysfunction (VKR61-BX H69.90). Course: Discussed with patient most likely some fluid behind her ear. No evidence infection. Continue to just observe.. [Electronically Signed on: 10/25/2024 14:14 EST] Jason MCNEAL, Radha Santo [Verified on: 10/25/2024 14:14 EST] Radha Gomez MD [facility] ALL CBC WITH AUTO DIFFon BASOPHILS ABSOLUTE AUTO 0 [facility] Basophils/100 WBC (Bld) 0.3 % 0.2 - 2.0 % [facility] Eosinophils/100 WBC (Bld) 2.1 % 0.9 - 7.0 % [facility] Erythrocyte distribution width (RBC) [Ratio] 14.3 % 11.0 - 15.0 % [facility] Hematocrit (Bld) [Volume fraction] 32.1 % Low 36.0 - 48.0 % [facility] Hemoglobin (Bld) [Mass/Vol] 10.5 g/dL Low 12.0 - 16.0 g/dL [facility] IMMATURE GRANULOCYTES ABS AUTO 0.34 High [facility] Immature granulocytes/100 WBC (Bld) 3.4 % High 0.0 - 0.5 % [facility] Interpretation and review of laboratory results Abnormal [facility] LYMPHOCYTES ABSOLUTE AUTO 2.4 [facility] Lymphocytes/100 WBC (Bld) 24 % 20.5 - 60.0 % [facility] MCH (RBC) [Entitic mass] 27.9 pg 26.7 - 34.0 pg [facility] MCHC (RBC) [Mass/Vol] 32.7 g/dL 29.9 - 35.2 g/dL [facility] MCV (RBC) [Entitic vol] 85.4 fL 81.0 - 99.0 fL [facility] MONOCYTES ABSOLUTE AUTO 0.4 [facility] Monocytes/100 WBC (Bld) 4.2 % 1.7 - 12.0 % [facility] NEUTROPHILS ABSOLUTE AUTO 6.7 High [facility] Neutrophils/100 WBC (Bld) 66 % 43.0 - 75.0 % [facility] Platelet mean volume (Bld) [Entitic vol] 9 fL Low 9.5 - 13.5 fL [facility] TBH EO # 0.2 [facility] TB PLT 332 [facility] RBC 3.[address] [facility] WBC 10.1 [facility] CLINISYNC [facility] Office Visiton 10-24-2024 Follow-up visit [id number] BaudilioArceliaSherly M 2000 F Date Provider Department Center 10/24/2024 [id number] LUIS EVANS ANISA RODRIGO [facility] Family History Problem Relation Age of Onset Diabetes Mother Diabetes Maternal Grandmother Diabetes Maternal Grandfather Family Status - Relation Status Age at Mother Maternal Grandmother Maternal Grandfather Level of Service:78533 [place] OFFICE/OUTPATIENT NEW MODERATE MDM 45 MINUTES Reason for Visit and Comments: Rapid Heart Rate [815506] - Episodes of tachycardia include lightheadedness and SOB. Denies chest pain. She says sometimes HR gets up to 160's with rest. Problem [109301] - Currently 28 weeks gestation. This is her 2nd . She denies having issues like this during first . Palpitations [446322] Shortness of Breath [744340] Dizziness [247288] Normal [facility] Urinalysis macro (dipstick) panel (U)on 10-22-2024 Bilirubin, UA Negative Negative - 4(70) +++ mg/dL [facility] Blood, UA Negative Negative - 50 Osvaldo/mcL [facility] Clarity, UA Clear [facility] Color, UA Yellow [facility] Glucose, UA Negative Negative - 2000(110) ++++ mg/dL [facility] Interpretation and review of laboratory results Normal [facility] Ketones, UA Negative Negative - 160(16) ++++ mg/dL [facility] Leukocytes, UA Negative Negative - 500+++ Edison/mcL [facility] Nitrite, UA Negative Negative - Positive [facility] pH, UA 7 5 - 9 [facility] Protein, UA Negative Negative - 2000(20) ++++ mg/dL [facility] Spec Grav, UA 1.015 1 - 1.03 [facility] Urobilinogen, UA 0.2 0.2 - 12 mg/dL [facility] C Throaton 10-08-2024 C Throat Normal throat justine isolated No pathogens isolated Normal [facility] Comment on above: Performed By: #### [id number] ####[facility] (DEFAULT)[address] [place] [address] Coding Summaryon 10-08-2024 Coding Summary HTMLBase 64 TeejqalrJPx1zBr+PGhlYWQ +RE9YAMXiU97tpCSszB5gH0 NMTElOSywgQVBQTElOSyIgb oJfYI7ltGJaMSTo IC8+IC5qXTCrCuhdiIArs2M 5iKI8V75xdd8zWWekoJT7UN DtSnXnwuvyq3iptCm3DTveU mluOyBt OYObxP54ZNR5iW18Kz63dKG lcPKuh7gmpXi9RgDjSOArGY L6dRmqDGjoa3TrTTWhH50nq KNbb0O4 NGQadRjubXWoZwUuoVM2dT4 lMSllhzcwy3ptprauKhh6jy 57tLTco7M5rGJ8U0FzqoQ5Y GJvbGQg QpcolYMUeK8wkbzic8systh hSrCeSZZbZQu5BMp9QYPmqR wuSfPzLO46BEB2ZAPdnnUhV 2FsLWFs jWjzPzM6x3K0Kz7ZW7PTAzd fK8AXZYPCMEbujJE+PC90cj 96C6SePkexYux6PTBxRNU6q AG6rV4a GYJoPLkqb6A7pFP9U1OqyvU xxb4qg5nfOLPuFEhuY52ozK Qci4R7JICknCV4NWOclUilF iBzaG93 Oyc+CSYkbGczy8XmZujit3l fa9ghvIp6SkomOTPaorHgcK teYXA3f1MjIm7fVYEzeMB6o AH7nX5l OqEkDvQ1IDpjG494OuFskEL oRewlZ39iG1KzkEG+PHRyPj q0STDxhAavZA2pB1TeECYvw mctbGVm bFklDX3nKJWigkcfVJZklO0 sSVLyB6k6KfVfZiK6JKhnD4 GtYWQkauykVg20wG6kItSsV rF8JVvx U1YgedK2YXNugMTbZOowCXS 1U64bv3N4NQOiUGVqWPH3eS O5lA4uoEhvwsrxhXCrtIixa mVydGlj USgvTKooR277HJMrkRjfOnW vZGluZyBEYXRlOiAgMDIvMD MvMjAyNTwvdGQ+JAWeYBZ0j WxlPSAn dEPfLUekKb0zwFdwsHbvDW5 mGHSpriqzRWLvhR5mGAGwbO MmeSfcWZ9qPFZnvtndz464D iAxMHB0 IIFeiECsS1YdvY7mNiLzGRO hTOEsS9JzpJBqPNrnC764XR qwZyE1QYEmcwJjN1VqROIps WduOiB0 a0K7Ki7Vt1NqwdweG9UjdXI zNwZzYwgcVOn2U2NpHvyohN I+WF18UJJgRD87PXh3OHR1v WxlPSdi GRCrU6NlkA0oNpCgTNMdHAZ kOyc+PHRhYmxlIHdpZHRoPS lgQFRkMwHboBebHM7sXb6bO GVyLWNv fBverBLySqNst3sbFQHuTKj gAU3uiRwtM3AudQX6AXDos4 x9Iw18J11aX3QasWE+PGNvb LW7nTJ9 oR9eDhFkKeB4UCcsR299TzX edKWvUnzdd9ioh7rwyBw7Fz M0DJTgraJmtYwtCLD7u2SiB r00I82z IHdpZHRoPSIxNSUiIHZhbGl ntw9dzM8pKm0+GDVakTR2dH M7gP1lUgSxQqI8DCorT297I nRvcCIv Ljvaz3zpz0upbEf5UjUjLUI smhDbtMwwNXH7z1IvOg37Q8 ZboFcob1ZmAgz2eg11jIJrz 4M7xPB1 D0EgNNRkcwgfhWAhlPwbIT1 tOUPyheqlUVFodC0wEDEnJ3 s2JwDiOcB3RMuxW7JsiwT4U GJvbGQg BMXwrBYHgZ9zbxsll4ihgyb fLwDaBWTzQYk2IOr9TWRlcX eeQvZpDWR7GsK9GIX3lUKxh P1lvFdy nvvasS1xXwd+HMN4cTTowHF PUR0nYslycYK+FPNdQAT7iZ xmDPmuBQYsbL0oLOHmP4n3V iAwLjA1 MHmlD4ZxanO4BCIteEXyKIG gpLJGkJ8kyxzew9afnjszUo NdKYWiNPv7MGy9WETgvWziW iBsZWZ0 YsL6IXO4uULxvP0scByicvb ecA3fNpr+FkvgwLbyAQQ2TU h2N0IbGwm4DIJnuKdeJV8xb GFkZGlu Qc5paFhkrMnrRA6aQRScmwi hk334OrShc3myHPTnhZLnEN wxAFX0C60ev9R9CDLzZWTyG WO7cIJ2 sR5qeJqyjtjlsACkqJklemZ taSwcAOtpVMqaP478VBZdaZ pnMnGrTYb7X5IgCcy9VZNbc HfuMI6z lDYsLLhsBh0pmLdyrMtpBZ5 bGIByvvtlb706WjPms8cdAV AjoGAfAEjtXOF4G40bz9U8Y CMwMDAw YXY4sER8zY7wmByhfvdzyGK mdDsgdmVydGljYWwtYWxpZ2 92UTBfiTuuCgBvkYx5Z1IxX dd0YELs sEuyVF9fhRBfHPbkBe8zoUz bbWurVO6uSREuzvkap249Hh Wxd2ujXLFfvHMhYEmqTIL5X 21xp0N9 ZSHzQFMdEVI8zII2pB1tuTc nbjogbGVmdDsgdmVydGljYW yxDLihN044JHLpoTjnLeZuw GllbnQg FEsnISv1O0WgPtkrqGJ+PC9 4CGYxDI40rIMbbFFjo5rnxK i1TeYdVNGrTPC0rYaiHGaih 3JkZXIt F81scJWfz8G2LSKphVgwiCD tRsFfrBB2tW1bZUlotowaf6 xkttvqMcdwe2woxl06qI32Y 29sIHdp ZHRoPSIzMCUiIHZhbGlnbj0 rtM4hFl4+UUSwuYW2bXH6dG 5wRHNmHyW1XUxxP906SeNgi CIvPjxj k7vap2ispQa3UpM3UBZudnF ldIpjOAE2u2EcNl66Z64vTN dpZHRoPSIyMCUiIHZhbGlnb l7lrO4v Ii8+UFHxmGY1fGJ6wL9dKqM rRnO6QOdcW347XnImfPIlHw irO29wE8HfrMW+YRImRot9E CBzdHls TQ0etTQeQPvsRd4jJVI1VkB yPuCfAOdrV3QnXFHlhskggd qurEZ1BTPlDIZleY70Bp1ux DogMTBw dRABhO5qjdxmx2zldgxxZeI cWUDmUMd7PQw0RRVmoBawAt ZfHCL9YiR5SOL5kVUmqR3ep Glnbjog fP2rJ3XxEPMcabozUv37kH6 fHvRuSlR6UDzpJgv+Q1JBV0 ZPUkQsIEJSRUFOTkUgTUlDS EVMTEU8 L4DiQwj0RAGevMxdFC4njZV kGRjuDc9gcXeqzRrfDR5bDZ FzaaipERUrzU6zYUUjvCXxh HrtAA6f HBZpycoga564NuHrJIX4IGT naTAyN8CiiA8vRrDfUDVwWI HrT3DhlPHiVYuiA346IBmqX aD7EJRd jzTgR3OpHURrdTiyYhZ1z9Q 0Hh2aMm5bVL6zOTi4PZ25OF 28mZLlx3P5rNI3M2MuLXJfx mctcmln nIU5VFCxGGPukC81mMHnKZy hOd4ef6P5a670CVHkDQRhwP 81Mc6zqItrFAQqtZLRmG3hg ngom1ij pexpQbPbJJOdGUc9JIh1OWH stOxgCnDzSUU0KzE6VHT3nJ PifT8zbIcbgjimiE2rNcj+M jYgWWVh jvC6I9WnTtl7EHKgzHkhIE4 noYLrVJzbWc0tnLcozQomZN 9sLSUzgjtmGDQzzI8tPQBvu HRvbTog BN3qQCCgndwan669ShXpLHC 3HBTxuPEiL4SclT7fOtTzVY PfTTJlG3TilYMfXOwpC875L GxlZnQ7 JWGgzsOnT8LuVYOyrYlrRfO 2h0L5Po8MEM5HOBN7A0ZmOe q2FOOuvXtzLU6fyHMgQLgkK t2gvKdw dNdaRS3vDKVrnoirCCOwsM3 uXQFczJUfzJkiIZ4rCIIuoh ost622UbKiRJC9XHDknAZtS 3EkdL0m SwGaONPdJGMcB9EzfVWqNGj qO188YDrvYsJ7WROtinTjW2 VeNYEbnDudBdV0t2N2Jt8ZE DwvdGQ+ JK12uv14R6TcPomxIcd9RUN oCEW7kVO0pZ0dLODcDPewv8 P8vWO7I4RhmvQzkh4ua6vzG XBzZTog T82gjJFdc6B0MXZzfTT7NVH mfCrtFsWphD63Ggj+PGNvbG wzg6TjBwzya5dtz5mnnQx1R jMwJSIg loCjvQceIYR0p1OhSt78F89 sIHdpZHRoPSIzMCUiIHZhbG xdta7rcX4cMu1+PSZdyEA7w FF1bT7c KbXmWaR1PGzdB489BuVvpJX yNtjif1qdt5jceXn5SjRcAN CusqCubPirTDA3l5BlUh55T 2NvbGdy b1MxAjb2rl32kAJeo5L1sIR 4X1EmQYXfbnbhmHKaeIpgPG 5bYDBjijsuMIClgX6bWGZlS 7t0UkTh UsR9CSznH8HxkfD2GBHqjTK vICQdcXZVvZ5teajnp3pqak zgXmQeSAUoJEo2YQz3EBQiw WduOiBs FXC9WlR6GDU4iCIqoS7ikAi eyuvcxY5wVic+YAa0t5wjsF TfED7bhJN4QO65WH15nCTnk 2J7aIR1 S5ToFNXpdrqpgzwqwOT5FBG zJWYemW57Cn6edKadSc4jTR QsVEM9MOAfiGCjI0AztU7oS iAjMDAw JZYoR5TiyHTvTBofA031YRy pTkN3WGGeboBbY9UqQASnuK ugGqT2o6K5Qw4YMO98VP49A N32mQDy c7P1vYY0E6GiQFBmlsbcvkt xuSP5IWQbTTYcfF35Qw5cuC ziIp7iURXzAOU2RKBchOLoS 3IvlB2s PiBwLVOhOGSlY3DyuYFqOIp wG524PRhdLnI4WKYsfzZkB7 PyIYJmgCrhRxM6a9X3Cp8ZB k02MD32 PH01gIQzs6B4mDU6M6NbCSL vhsvfjbrjsVD3RPHxGLAqqU 30As2viKgyHj0pCBRrCWR3O FRpbWVz Q5NokT5pLlLcIOKmBDFzU1F gkXObAKakY820YBljHuX6TW YxjwUtN2XvFNXkgMrpYfU2b 2Z4Va5N VSwjphg5D3EmLlisfRH+PC9 9LEQkDP38iYNiuMRtl0lceQ m1DjOyUTUxPBK4rEhjUVadr 3JkZXIt Y29 (more content not included)... Normal [facility] POCT Rapid Strepon S. pyogenes Ag IA Ql (Unsp spec) Negative Invalid Interpretation Code [facility] Comment on above: Performed By: #### [id number] #### [facility] (DEFAULT) [address] [place] [address] C Throaton 09-26-2024 C Throat Normal throat justine isolated No pathogens isolated Normal [facility] Comment on above: Performed By: #### [id number] #### [facility] (DEFAULT) [address] [place] [address] Coding Summaryon 09-26-2024 Coding Summary HTMLBase 64 TzqcsibvWDo3mZj+PGhlYWQ +UX0WXCToQ79svOUebE1zU0 NMTElOSywgQVBQTElOSyIgb jRrPU6gyJXrLANm IC8+LM7oNXGsFbaoaUAlf8W 9zNS2Z66wra9pNQswxUW6GP HyMbWbqdfvh5ufyEd6OBptW mluOyBt PCIatS31HUO3cJ59Kp14lTE hkOBdr4nqgNv3EfYoDCKbPG D1jCjyCPaxp5EnVJVnH55qx FUxq8B0 PYQwpDwdvXHpJwLpyYY7mC8 fOPyqmypvi7beiatyGxm5ko 89hHHzk3N5pQQ2P2WxzkK3F GJvbGQg FnvqoAQVnE7ludebs1bywqk zZqBpDXHoQAi3OJg0KXDkxW ylCgVwDS47KNE5QKNksoTpI 2FsLWFs sVqmBxW5n6G0Xs3QA3COCtw dK5GWXBRDRLczjTX+PC90cj 52W1QrUgdmEmw4ZBZtAWL6m KM8cA6u DROqJWujd5P4pKR1H4WkmfW tvu9jx2sqKZPtTPtaQ84dzX Hfx2Z0WNOqfYH5ZMCwdGmyX iBzaG93 Oyc+LRSnuQahr3QyHzdnv2z bx7nfrRu6EurjLEYxswLpjG flKXB5k6ZnVb3bCEAtxVT4m DE7wE9j XuLfLjZ2KPwyX202DxIghOL gQghnI61eS0HxuFP+PHRyPj h9PIMwyStqKO3hV7IdQLBux mctbGVm tByhIH5nPYJtyzjhXMSosL5 kELGwF4v9CgEoJoH4WNwjO1 QxWBIizhmnGf28pM8nYwKtF wW8ONti E0NwyfJ7XVTnbKUmIOyeAAX 0L49wr2K0DNRjKXWqXNN9cX Q6oZ6nfVpsthxrvLCyxTfoy mVydGlj OGhtBPdzS996HJCydJtdXdL vZGluZyBEYXRlOiAgMDEvMj IvMjAyNTwvdGQ+OFMrIKV3o WxlPSAn hCOqRRyvHd1dyFmljEthHG9 qPATcgzukGTWxtP3oULTcsS BuqSzsDA1jRPBpikecv900V iAxMHB0 JNYvgLAcR6SzxG0aSwDqHKZ tCFZbA9IscXWxEUbwO497LU rxYvB5OHLmdbBtZ9PqLJNyi WduOiB0 j6O9Vj1Jm6UyzqnsO9YfeQH mXpDoZjnnBSu7E3KsKuytdU I+TJ68IEAeDR16RMe1KYI5l WxlPSdi WXFzK4ZctE6mUwYrHGIiQNW kOyc+PHRhYmxlIHdpZHRoPS zdABDzSwFipHquIN1dUu7nY GVyLWNv nLsrbMVzKkKvw3tcICQtOSj lOF2btBqlB2ThqAC2PBPfg8 x9Zz17F10uU8AclUJ+PGNvb GT7iBV6 tE8fVsSpRtS5UDheC952QzI rdEPfIfpqw1you9quzNx2Ka P1IOOhsxIwyDpuTTS6f9FiZ y84O76v IHdpZHRoPSIxNSUiIHZhbGl axo5gnT7cZb7+ICLetOW1jX K4sV7cMpNzHfL4UQkzQ132U nRvcCIv Sevpp9kwq5nfjQo0NnKsBFS gjaRazPzjGPI2i2SmVr59G9 JplVkbj0WlPnk5yg13yLMot 0B5hJX4 O6EaINHndxpakVSkaRpqMN8 aWVKhgjxpGTTmrF9gQTSiW8 n4OvYzHmI9CDniL5XiscA5V GJvbGQg XBCwkWQXbZ8hldlvz5lsjpp iNsXwQJXlILp5BYh7MAOmlZ qqYtOhAYY8MaK3CHD9hAMrx O2usOmh mzwbgA9pNre+LXR0yJGgbDF IPK2qVfmnuMX+DTQaCPM4cU wvVChxPNPgfD3cLZRsW7y7T iAwLjA1 YDheH6AohmF1MVGnsIVhDVE xjXMDxD3ajgcav4oggoizEw IbPTVoTDj2ZNp4WMYcsCjdP iBsZWZ0 ZhX7JOQ1qQCqwM8umYmocle pjP7lRgx+BxqubEogLHQ0UN k9U7ZlAfo9UWHsgSplUX1pr GFkZGlu Dg4wlLqgvUbgWF1fLZOuzne sj487TzRoc9gvZGJzfFFxHO swAYL0A01ub3V1RWWmVGUbD NT0pVH5 nP5xnEprrajwqNIwsWnlsoJ hjDwmYCjmKFqeN208BETceH lwZnXoGPe4M8ClTko1LIFku MrtYV6f fVYpNZphFa6leKwxpMbhGT6 zYOIrbhlsd502FkUxv6bcZS JnlUEaJRdyPFL7F02uq6Q7J CMwMDAw YWE2wAI9aG3ugUyckaafnKQ mdDsgdmVydGljYWwtYWxpZ2 72LXIfrIvnPeQivUt3U8AbK nz9OPSw kXfmIB9eqXAmGSytZl7iiIj hsYcyYE2bXGDfbxsxz546Yb Ayw6vtWDJruAXmCOnwPWK3K 23vo0C1 JBSySYZnCNY9hKP7sF6hoCt nbjogbGVmdDsgdmVydGljYW zoUPxuU016TONbyDblImCie GllbnQg LDvhPDy9C7DdLmauyJD+PC9 3MSWbPV73qCDimKSkq2iuiP a5HsYsNAHzHSS6yPwmCLslv 3JkZXIt I65xrASbc4F2WLKnoRqixTQ jSeYsmXV4vF8zZEgxfdlot7 xymikeVvsfp0tziz92bZ20M 29sIHdp ZHRoPSIzMCUiIHZhbGlnbj0 hhC1sGb3+VSPomVE9jPQ1dX 4rKEIwXsD9TJmrT660JsOyo CIvPjxj l5xdt1vmcLc3UnI0SQZuxfL woGjwHLE7f6NpOs77U13uCC dpZHRoPSIyMCUiIHZhbGlnb k0gcO1d Ii8+ZSPsrDF5eJN1xS6eMfV vDdM2YUyyS536RpKkhNXzXg vkU04zA3UiyVL+IHJqFmx7B CBzdHls GR1cqNTrGUrzJc0vDWZ9AqI vXfRrFErzU3BeADLwssfjyv ryuZL9HAKpIDPivF23Xn2kk DogMTBw dIXZgK7vgluqr0uruqarAfU lMBTeYXd4WWg1AZHliJpqTq PuBBG4BfO9BKT2fMEixW3eq Glnbjog nM5aC3LoKOYkkdetEf33pW0 uThKdCrD8XWyjQmj+Q1JBV0 ZPUkQsIEJSRUFOTkUgTUlDS EVMTEU8 U9AhOvi4XHWifHlkXZ3pfOH hQKtxAx7mkOmohAftHI3rRX GyezbkHLAmgS6cQFDcnAUpd TqaZX7b UWFiwlnpp963SwLiRYX1NSP qnGFfX0YsaO6hIeVeMCFjMA ZjX2VzfKPrOZbeR090MVprB wQ5ANTs koTdJ3OpNHDibYgjRiA2z7S 2Ri1fEq3bNZ6iUQu0OV75LT 59pYEtk7F4hKV0R4FnUMWiw mctcmln cZF1PGQvZPCouT82eDAvUBx mFz2oa2I2x572GOJwKPHjaN 02Im7inIjlERScqIVGvQ6qf lyve4wm nkiqDdVcNMWcCSt8VQy5JEJ twSmaMiYjZYC3JvN2KCX1tW WezS4lwZrppjepnM6hGxh+M jYgWWVh joN3M4HjRww9FKMxcRdbPZ7 lgEIeVKpdRu8fzPtztZxuJM 9uIMFzuqvaIGTyaF0bRUWkk HRvbTog ID7tOVMetvfqb844JxUiUPX 6SABooQYwZ6HqtW1eAuPjHX IwOBOqM0QpdNRzRSvpL827B GxlZnQ7 EUFidhTzH9EhJFPdhLtnZmQ 7x7P9Md9GDU7AFXG2U4SqNb s4JDSpkKqyFH5llDWgEWbuB h2rrTqu zQkwBN1bYMNktnnrNSYkmJ4 pUUYznQDwsPmqPG3dRICxop hky529DwZsWSG9THOkcWHpD 1ChgS2x FbSpOMHxPQNyY2GywRUrOTg dP194TVxyGyI6HORafbArL4 FyEDTtgGlxWkP8m1L6An0JI DwvdGQ+ IF17he11N2GbAkoeHgg1ELL nRCD5yFQ2tC3mKOUxVLglb7 M2cSV1P3ShelMxpe1jn9goX XBzZTog Y46sfVGwp4V2LPVqtVI6ZAU vcSftVePktF42Tdo+PGNvbG eon0ZrMxclk7vnn9fcgEl0Q jMwJSIg wjYpaEkiFJS2e9AvTw69K09 sIHdpZHRoPSIzMCUiIHZhbG oczy6ocT5hQs6+KJWglMI1w VZ1wV7p CrRoTiG4MMysY472FmEpkCE eRelez3nil4aojBs7MyNsEW CvdlVrjMckWVY4o5SxCt67G 2NvbGdy h9FuIvi4sp61qQPwm6P5gLZ 6L2AmANCcxbcbaEXloLmwAM 2tDUZnvxrsHXIgzF1rTNAxA 1u8TxFp FvU5VGpvB5JdjpM7FYJqyFZ jPCKhtBHLaK8lxcjmn7jein mdVwQfAILzYVo6IIl7CXTdo WduOiBs ZIN3PtU3FHI6sAUfjA2brAx sosozgQ2gOdp+OGm3m7cwaY NbVB3ukJM0HI23DG17rQBsz 1L0sGZ2 E6HaMRQhzoqfambjvSJ2ANH vXAQlcF65Qm7msEfdQb7qMT ZaOZK3RMQdwUMuD7NqeX4uB iAjMDAw HIWrK1SdpJLwZQytE128GUa aJkE2ZCYzexCmM2PgZTOmgM oiLrV6y8Q1Vo0SJP30NG73A Q49jDGg i6Y3mBL4N9OdPGKjmrvdbjk zsHH2ONNjXVArhP64Iy2xzE thVq4hATRsFCH2WCJhhKEsD 9FxoV0c DkGsMEXnZMYpF4PivLWwCSl iU253SDmxCiT0NVYtmlLqY2 ToJYUjhEbsNkT2x2T6Ft2JY q26VT88 HI61sPKks2K0bRC6P9InTGU auynwcoswsKV0GGOhPJSxjJ 55Lb8ejQloEw1nWTNaXIM9G FRpbWVz A9FggV5bBrEsVPTtAMBbO6F btVQlCCouU503OHvyZlM7ET QyxrAeB8LlNEXehJcnVyD8x 3B9Wg7W VSprzgq0T1IuSibleYF+PC9 9HEPhXS66gEQchJXen6fjhL v5FsOuKIFhSFY3dQlaITtls 3JkZXIt Y29 (more content not included)... Normal [facility] ED Clinical Summaryon 2024 ED Clinical Summary [facility] ? Urgent Care [address] [place] [address] [id number] Clinical Summary PERSON INFORMATION Name: SHERLY ASTUDILLO Age: 24 Years Sex: FEMALE : 2000 MRN: Acct#: Visit Reason: UC - Throat Problem; THROAT PROBLEM LT SIDE Arrival: 09/24/2024 12:32:36 Discharge: 09/24/2024 13:30:00 LOS: 000 00:58 Check In: 09/24/2024 12:32:36 Checkout: 09/24/2024 13:30:00 Address: [address] [facility] [address] PCP: Radha Gomez MD PROVIDER INFORMATION Provider [...] Follow-Up: With: Address: When: Radha Gomez MD [address] [place] [address] In 3 days Comments: You have been [...] next 3-5 days, also f/u with your HOUSE FURNISHINGS SUPERVISOR, for reevaluation, return to the emergency department/urgent [...] Summary [facility] ? Urgent Care [address] [place] [id number] PATIENT DISCHARGE INSTRUCTIONS Patient Information Name: SHERLY ASTUDILLO Age: 24 Years Date of : 2000 Reason For Visit: UC - Throat Problem; THROAT PROBLEM LT SIDE Arrival Time: 09/24/2024 12:32:36 Primary Care Physician: Radha Gomez MD Attending Physician: Larsisa Cobb Comment: Patient Education With: Address: When: Radha Gomez MD [address] [place], [place] [id number] In 3 days Comments: You have been [...] next 3-5 days, also f/u with your HOUSE FURNISHINGS SUPERVISOR, for reevaluation, return to the emergency department/urgent [...] these instructions at home: Medicines ? Take fpca-xsf-nazxrqo and prescription medicines only as told by [...] Comment on above: Performed By: #### 9 [id number] #### [facility] (DEFAULT) [address] [place] [id number] Urgent Care [facility] 025 Urgent Care Record [facility] ? Urgent Care [address] [place] [address] PATIENT DISCHARGE INSTRUCTIONS Patient Information Name: SHERLY ASTUDILLO Age: 24 Years Date of : 2000 Reason For Visit: UC - Throat Problem; THROAT PROBLEM LT SIDE Arrival Time: 09/24/2024 12:32:36 Primary Care Physician: Radha Gomez MD Attending Physician: Larissa Cobb Comment: Visit Diagnosis: Diagnoses This Visit Oral sharon (B37.0) Pharyngitis (J02.9) UC - Throat Problem ([id number]) If you received any narcotics, sedation, or [...] documents With: Address: When: Radha Gomez MD [address] [place] [address] In 3 days Comments: You have been [...] next 3-5 days, also f/u with your HOUSE FURNISHINGS SUPERVISOR, for reevaluation, return to the emergency department/urgent [...] and treatment you received today in the [facility] Care were for an urgent problem and are not intended as complete care. It is important for you to follow up with a doctor, nurse practitioner, or physician?s orthodontist assistant for ongoing care. If your symptoms [...] so we can reach you if necessary. [facility] has provided you with a complete list of medications post discharge. Please inform your jerker/provider of your visit and for further instruction on these medications. Any specific questions regarding your chronic medications and dosages should be discussed with your primary care physician(s) and/or pharmacist. New Medications [facility] [id number], [address], [place] [id number], [phone] clotrimazole (clotrimazole 10 mg oral lozenge) 1 [...] Normal [facility] Telephone Encounteron 2024 Advertising Sales Consultant Authentication Interface Message Text Called patient lmom to call office for sooner appt... we have them available. Thank you Normal [employer] [facility] DRUG SCREEN RAPID (URINE )on 09-10-2024 [...] [facility] PHENCYCLIDINE SCREEN URINE Negative NEGATIVE [facility] TRICYCLIC ANTIDEPRESSANT URINE Negative NEGATIVE [facility] Healthcare US OB 14+ WEEKS ANATOMY SCAN [...] GDLNon AGE GDLN ACOG TESTING Note . [facility] Comment on above: TESTS RESULT FLAG UN ITS REF RANGE LAB Clinician Provided Cytology Information Source.............Cervix Other.............. No. of containers..01 ThinPrep Vial Age Algo ACOG Crystal... - 01 FLAG LEGEND: L-Low Normal,H-High Normal,LL-Alert Low,HH-Alert High <-Panic Low,>-Panic High,A-Abnormal,AA-Critical Abnormal Performed at: 01 =[facility] [address] [facility] [address] Melissa García MD, IGP, RFX APTIMA HPV ASCU Note . [facility] Comment on above: TESTS RESULT FLAG UN ITS REF RANGE LAB DIAGNOSIS: 02 NEGATIVE FOR INTRAEPITHELIAL LESION OR MALIGNANCY. THIS SPECIMEN WAS RESCREENED PART OF OUR PASTEURIZING MACHINE OPERATOR PROGRAM. Specimen adequacy: 02 Satisfactory for evaluation. No endocervical component is identified. An endocervical component is not commonly seen in the patient. Performed by: 02 Emilie Frost, Clinical Support Manager ([facility]) QC reviewed by: 02 Lauren Ness, Supervisory Clinical Support Manager ([facility]) . 02 Note: Note 02 The [...] Low,>-Panic High,A-Abnormal,AA-Critical Abnormal Performed at: [address] [facility] [address] [place] [address] Melissa García MD, Performed at: = - [facility] [address], [place] [id number] Women'S Studies Lecturer: Melissa García MD, Phone: [phone] Performed at: [facility] [id number] Women'S Studies Lecturer: Melissa García MD, Phone: [phone] [facility] RECURRENT VAGINITIS (HTRX)on 08-15-2024 ATOPOBIUM VAGINAE 0 [facility] ATOPOBIUM VAGINAE Not detected [facility] BVAB 2,3 (BACTERIAL VAGINOSIS ASSOCIATED BACTERIA 2, 3); MOBILUNCUS SPP 0 [facility] BVAB 2,3 (BACTERIAL VAGINOSIS ASSOCIATED BACTERIA 2, 3); MOBILUNCUS SPP Not detected [facility] SHARON ALBICANS, PARAPSILOSIS, TROPICALIS 0 [facility] SHARON ALBICANS, PARAPSILOSIS, TROPICALIS Not detected [facility] SHARON GLABRATA 0 [facility] SHARON GLABRATA Not detected [facility] SHARON KRUSEI 0 [facility] SHARON KRUSEI Not detected [facility] CHLAMYDIA TRACHOMATIS 0 [facility] CHLAMYDIA TRACHOMATIS Not detected [facility] GARDNERELLA VAGINALIS 29.341 Abnormal [facility] GARDNERELLA VAGINALIS Detected Abnormal [facility] Interpretation and review of laboratory results Abnormal [facility] MEGASPHAERA (TYPES 1, 2) 0 [facility] MEGASPHAERA (TYPES 1, 2) Not detected [facility] MYCOPLASMA GENITALIUM 0 [facility] MYCOPLASMA GENITALIUM Not detected [facility] NEISSERIA GONORRHOEAE 0 [facility] NEISSERIA GONORRHOEAE Not detected [facility] TRICHOMONAS VAGINALIS 0 [facility] TRICHOMONAS VAGINALIS Not detected [facility] GLUCOSE TOLERANCE 3 HOURon 1 10-11-2023 GLUCOSE TOLERANCE 3 HOUR mg/dL [facility] Comment on above: GLU FAST 83 (<95) Co l: 08/10/24 0708 GLU 1HR 131 (<180) Col: 08/10/24 0812 GLU 2HR 124 (<155) Col: 08/10/24 0912 GLU 3HR 95 (<140) Col: 08/10/24 1013 [facility] Urinalysis macro (dipstick) panel (U)on 08-08-2024 Bilirubin, UA Negative Negative - 4(70) +++ mg/dL [facility] Blood, UA Negative Negative - 50 Osvaldo/mcL [facility] Clarity, UA Clear [facility] Color, UA Yellow [facility] Glucose, UA Negative Negative - 2000(110) ++++ mg/dL [facility] Interpretation and review of laboratory results Normal [facility] Ketones, UA Negative Negative - 160(16) ++++ mg/dL [facility] Leukocytes, UA Negative Negative - 500+++ Edison/mcL [facility] Nitrite, UA Negative Negative - Positive [facility] pH, UA 5.5 5 - 9 [facility] Protein, UA Negative Negative - 1999(20) ++++ mg/dL [facility] Spec Grav, UA 1.02 1 - 1.03 [facility] Urobilinogen, UA 1.0 0.2 - 12 mg/dL [facility] GLUCOSE 1 HOURon 07-31-2024 Glucose [Mass/Vol] 132 mg/dL High NINF - 13 0 mg/dL [facility] Interpretation and review of laboratory results Abnormal [facility] Coding Summaryon 07-16-2024 Coding Summary HTMLBase 64 EnflfhjeSPc8vHu+PGhlYWQ +CL0NOZLaB01rpBQthF1nW0 NMTElOSywgQVBQTElOSyIgb dQhPF3phXEsVELe IC8+GM6cHWHpZuyxyOJgk4I 4gNE4J88yzn0wGDnhbPB2OZ XyTfKeouubh5acuMr7QLdqA mluOyBt YBGifL58QKP2eR65Be78gBB rkMAya2qfgSe3SbWrJGRyVH K1tAjlSCmrh1LsFVVnF31ao NJeu8N9 EAEseVapyGXfSyMvjUS7fS5 vFUyvblgzk9oytsvqWmd4jb 53oCXam4A6lAQ5S8GwlbM2Z GJvbGQg KmmyhHIGiX9mrwtge0xryri zEtAdOWQuJUz6DRw4DULsdW bcRaNoDR57FTZ6CNBfejFpM 2FsLWFs wRazVnK0k5D4Ha0MC8ZYJcg uJ6XIIMWDMBkgtHU+PC90cj 66U6YhInnzQkl8OMYxLJP9j KE0bG9d AOGdURank7B5eKW2L2YpsyJ ewy9gw2pcKIAhVExiC26cmV Agk9L0OWVyrGB3IIPrzKgtC iBzaG93 Oyc+EVUxgJqpl4GuOggja3j je3etbRr5WtovQGRywyRheC exVYF1h7RlKx5fQDOstEI2s NI5xP6p BnEmQzK0VAmgP997BvFqbFL vSoiyC04tS4VdwOH+PHRyPj n1TLZhoMqnFC0dG9WsSXFcs mctbGVm fVanNS1iMYZyetfjTSZstZ6 vZOHkL7m5VhZnWbH4PIcxH1 VwFQGcryjgAo49uV6dQhEbH sX6GAye Q0IrmlU3IWCeeVTsPRocONF 8I40wt1L7BAKzKKYnWWC2zO J6yE8jfSzlhvtlhQSqgSrlw mVydGlj VNusRAbfE956NDOlxVebUzU vZGluZyBEYXRlOiAgMTEvMT EvMjAyNDwvdGQ+OEXlFMQ2c WxlPSAn cSKsILumAl6njMheoIidBR1 bOVRyodklMPXjtB9vHGRpaM XgsNutVO6xYFTznyisr911Q iAxMHB0 BDCbiYEhZ8XkkA4xWuAsFCD vNNAcK6PhhZEuHYpeM564RW dtNfN0JAPqleRzD9ViFGAkd WduOiB0 w6D6Uj7Un6IstzixR6SypAW bCtUzOppiTVa1C0KsQtoggR I+NK57YSGqHR48ROq3RIG4u WxlPSdi MYEiG5SuqA3vRzFxSEUfLWH kOyc+PHRhYmxlIHdpZHRoPS qfPJTmVkEsgWipRC7tJm6iG GVyLWNv jYwkuVFuJaWbi7mwUSDuCZx uPA2kfGntW9WhqIP0TGWue8 n2Qs39D17kT5FnzCS+PGNvb KX6gJC7 tL9pWbXhOfQ9WGhoM068LmA ndJWnEvjbc2enw2matIk3Xo K8XVTeswYuuKjlWYF9p3IgB p46X66i IHdpZHRoPSIxNSUiIHZhbGl fzs6kkG1zIi4+IQUssST3aC Y8nD7lTlKaNmS4SUefH495V nRvcCIv Zfuwq4rso9nsdIi6GpOsAWE zihYwiGupBXA9z8MdEi10Q8 JmnQvrz7AfGiu7qp48sXNba 1M7rEN5 K5OjPGXgpsgkrFScrYbcKP0 fFACujacsLQCfxB3cJAHjU7 w4CxVbIxB0NZzkG7XxtlL3P GJvbGQg BJUstXCVrT5hzavbt6pradc rUfDuHXKsJHp3UVm4QKUcbJ vsWgQzTGY4JbA5TDR3nUVmb P6ofGea ctxmzF3uRja+SRU3vBChxVH HFM9oVlcblFD+XUGiTIY4mK jlZYzuCRDnmD4lAKUrX6p8X iAwLjA1 JUeuI8GpcnE0JIJauUJgAGX lpNBEjC0xtizvq2mhslzvHw EeKUSmWCf9DSb9MDTbeNfjO iBsZWZ0 TkO8OWO8gFJgbJ9swIxccqu beG6nLww+OionhEwlYHX4KN w2O6XwOou8YJEikRcmTS8ya GFkZGlu Xw5piAbuyYanJT1hVXBmgwd td616McStz4vkONSgtYMmKK wzRLQ4G20cj3W3OESrQIBgB DW5tEU4 oY8llVbhyoifkBBezUuiemN xnFfkCWmmNLewP197KRCrpM ojSrZkVZb9P3BiMtp4YZOsl DnnEW2j mAAsCYpfYb7xvNfwxYggWK2 gLYIdatsbr705KvMyj7gsNH GsxIEcFXwcLEO3P31qy8P3T CMwMDAw LUV8zNJ7aF1fmBniccseeSL mdDsgdmVydGljYWwtYWxpZ2 15LCUiePuyTiAzdOm5S5PzQ hr6EADb zEyjMI2ygLJdFHugVi8loPd zyTyqIT0pHNOdmbmul483Fm Izj3bfOUEqzLOoBYbeTDR0V 07fn2H2 VZOfVNAcBNB5hRE2cO7foOc nbjogbGVmdDsgdmVydGljYW bfXHazP026WLMgiBmsJoGge GllbnQg SWmmUMa9V3EeXqjvgVJ+PC9 4QYYdZC57dQUstRMes1wedD p1IhXhCEOjXKF2tMrrTDwgt 3JkZXIt Y55vvGOfd7Y8GNOczYntyCB sGcEprIB3rM6eGLzrqrrwl3 dmgunkJdrhm7tjie22pL04U 29sIHdp ZHRoPSIzMCUiIHZhbGlnbj0 zpW3qMw9+COArlBZ3aIN1zC 4kVFJsMbN8IPqwS835ReIvh CIvPjxj m5ixq9qhxWx8IdC1ZFUkkkN dzRqwGDQ7x2ItKm31L00jDD dpZHRoPSIyMCUiIHZhbGlnb p3eeD4m Ii8+DJGndNX7bMS3eA6wWeL nRaJ7QRmdP469DlWmaNLmDe ywX18tX3OesQB+GHXfZqn7W CBzdHls WH1ukNDdJAmpMh5iLGP8FlT bZcOpESzcI4UzCDUtqeptwn fqzYE9PNIhSHRhvL47Fi9qa DogMTBw iCJVcZ9ywnugq9njmbrbTbH pBHCkTZz4ADn9VHRysZneUl UbIZE6TwS9QLI9kRVvdU6et Glnbjog zT8rW9BxFXJnxyprPw18kI5 jRdEtRnJ3OPfqKyq+Q1JBV0 ZPUkQsIEJSRUFOTkUgTUlDS EVMTEU8 W9VaWet6CHKprXvyZL3syXU kQZfpOz7owPkscGljWT3yIK FvjjqnRYUlmU9qHIFjxHRhj EwhEW3v HRJqzbhus024NaQqQRV8DMQ uaKTbT3EnkP7rCdUsOLIdEZ RjQ6ZznWSqYXdiG491RHxjD aY6XOIr utTnQ7QxGELppPznXcC7g6V 2Zz4cRu7xLJ9lHNn5YB83IX 03oMLzm0E4hMF6D6RfTXJtl mctcmln dEN4TWUfXNPrkL26tPDiNGd gKn8cy2T6a698ZHPaMFCqtP 01Vn5grPivMPJabSRVdY1ef rufv9we xpfbEjDeYFQnXWa3JHs5DXD gmDweQdDwHAM7EkB9WDY1uZ JooY8krRupdgaflU4oNac+M jYgWWVh uoX3E8VpLgs2QVEsrXylFQ4 aqREtVRioWe9kxQlqwNknQI 8tFAVvfkscWSOvpU0cNXNkz HRvbTog DN1mYWSlxujgy778KhQcLNV 5HHLvyDFtD2UsoW0xKiFaBO RpAMFvQ4GlkKVcAKvaF852R GxlZnQ7 NUAofzEdE0StCRNssDzgHqK 9h1H8Fi6ALQ6HVSA3H1OsGt q4VYGkyEerGV1euKYgDCqjE l8tvJfo jKuvJY4qDWHwjdkhWDCsaX5 iLCBkgAJzrFdcUX9jIFDdce lrp441YvHuQMT4AFZmlLSrD 5GkwC6b FdHvPWPdJKOuG3ToaQJxRHq tI727TJigHqX9MNQqblWdM4 WdNBQuqZzoLdA1k3R4Xl3PE DwvdGQ+ UV84ez94H4WsUiiiLsc9CZR mVSU8dUC8rV0vEVLxXKbte2 B4fTM7J1AfxnZvah7rr0vgD XBzZTog W60zjDFxc5D2IYUrlZF6ECF xqUzeEsOpiO20Jpn+PGNvbG yoy5YcVaeuo2vou9dzrXb6W jMwJSIg skGqaOdmIFZ9b3CeYu47H89 sIHdpZHRoPSIzMCUiIHZhbG jeex3ohK3iUq7+RTLcoZD4t UV5nY7e LwUuVxT3QEkjC153LsQdtHS jOggwn6nyi5egiNb0VyQrDQ VjrrOtgEwwSOS4l5KzAp11J 2NvbGdy v9AbVoe2nn88uCTtr5O0lID 0K5AnHOImsfksvRXlpDvdHQ 3kBVCcqyorBSIinV3pIAMmF 6z7KeOm ZbT7HYndA4SbiuC8KQVtdAB zATXqhWDCbJ4kgeynq9pmkf pfSgNtNINoVTg9WIv8QFMdo WduOiBs ZJX1TfT6PEZ0vMOicY3crAd lavojyO1qXuu+RRs5u2sltD MfIA3zjSL1CC40IR95mKIul 7C1bHT9 W1IrSEIgozdgaiyahGA9VHM uJNZyyB31Ik1pePvyIc8wYZ ItACT9XDWojASnG4KhbQ9yL iAjMDAw PUXfD3EinKDoDBgvS960BWc wAeL4HSFzirDcH3DnYSOhqT eaYuZ5t3A7Fz2AIU06TI30F H45sEKn b5O9pAJ2D1CyDZKwghmnkgk rpZT2KUHsBVQfkX81Zh3lmP vyBr5zGKQjOZM4ZCHreQDyN 0MolU5d UcIhGQVqFLTsV1MsdWTjDDv aD015OZinCaE4UMNyxrIeM5 CzHVAvwIriNhW1s7M6Db8WA w13CS22 RG21wSMfj8D2jUQ5P8NjKGS ezoxrankziMB8PPRrRYEtoU 74Yg7rcAukRm0eHWLpTEN4C FRpbWVz G2LfdI2pNbIpVLQaHLXdF8J thPQdNHbmC003YPrvXkH3JW IzpfYuJ6JvTUMnkZydCiT1a 5F3To7A CDlqmmk2W0RsNqjhbST+PC9 5MJJoVK19nNXigNNvk6xkzP z7XtSmYJVaYGP6zKquPRmcm 3JkZXIt Y29 (more content not included)... Normal [facility] Urinalysis macro (dipstick) panel (U)on 07-10-2024 Bilirubin, UA Negative Negative - 4(70) +++ mg/dL [facility] Blood, UA Negative Negative - 50 Osvaldo/mcL [facility] Clarity, UA Clear [facility] Color, UA Yellow [facility] Glucose, UA Negative Negative - 1999(110) ++++ mg/dL [facility] Interpretation and review of laboratory results Abnormal [facility] Ketones, UA Negative Negative - 160(16) ++++ mg/dL [facility] Leukocytes, UA Positive Negative - 500+++ Edison/mcL [facility] Comment on above: small Nitrite, UA Negative Negative - Positive [facility] pH, UA 7 5 - 9 [facility] Protein, UA Negative Negative - 1999(20) ++++ mg/dL [facility] Spec Grav, UA 1.025 1 - 1.03 [facility] Urobilinogen, UA 1.0 0.2 - 12 mg/dL [facility] ED Clinical Summaryon 2023 ED Clinical Summary [facility] ? Urgent Care [address] [place] [address] Clinical Summary PERSON INFORMATION Name: SHERLY ASTUDILLO Age: 24 Years Sex: FEMALE : 2000 MRN: Acct#: Visit Reason: Vaginal discharge; VAGINAL ITCHING/DISCHARGE Arrival: 07/05/2024 10:15:34 Discharge: 07/05/2024 10:59:00 LOS: 000 00:44 Check In: 07/05/2024 10:15:34 Checkout: 07/05/2024 10:59:00 Address: [address] [place] [address] PCP: Radha Gomez MD PROVIDER INFORMATION Provider [...] Location: Home PATIENT EDUCATION INFORMATION Instructions: Vaginitis, [id number] Follow-Up: With: Address: When: Radha Gomez [address] [phone] Business (1) Within 5 to 7 days With: Address: When: COLE KEMPZIO [address] [place] [address] Business (1) Within 1 to 2 days DIAGNOSIS: Vaginitis Patient Understands: Yes - Patient/family/caregive r verbalizes understanding of instructions given Comment: Normal [facility] ED Patient Summaryon 024 ED Patient Summary [facility] ? Urgent Care [address] [place] [address] PATIENT DISCHARGE INSTRUCTIONS Patient Information Name: SHERLY ASTUDILLO Age: 24 Years Date of : 2000 Reason For Visit: Vaginal discharge; VAGINAL ITCHING/DISCHARGE Arrival Time: 07/05/2024 10:15:34 Primary Care Physician: Radha Gomez MD Attending Physician: Spenser Fang Comment: Patient Education With: Address: When: Radha Gomez [address] [place] [address] Business (1) Within 5 to 7 days With: Address: When: COLE KEMPZIO [address] [place] [address] Business (1) Within 1 to [...] and use condoms. General instructions ? Take fjkf-wbw-phtjzyf and prescription medicines only as told by [...] provider. Document Revised: 02/19/2021 Document Reviewed: 02/19/2021 [employer] Patient Education ? 2023 [employer] Medication Information: The exam and treatment you received today in the [facility] Emergency Department were for an urgent problem and are not intended as complete care. It is important for you to follow up with a doctor, nurse practitioner, or physician?s orthodontist assistant for ongoing care. If your symptoms [...] History Medical history: Resolved Ankle fracture, left ([id number]): Resolved. 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 Surgical history: Cholecystectomy ([id number]).. Family history: Anxiety Father Sister Diabetes mellitus [...] use: Current Comment: Gillian - 11/19/2023 09:33 - Marisela Soto RN 05/28/2024 Substance use: Current Type: Marijuana [...] Record [facility] ? Urgent Care [address] [place] [address] PATIENT DISCHARGE INSTRUCTIONS Patient Information Name: SHERLY ASTUDILLO Age: 24 Years Date of : 2000 Reason For Visit: Vaginal discharge; VAGINAL ITCHING/DISCHARGE Arrival Time: 07/05/2024 10:15:34 Primary Care Physician: Radha Gomez MD Attending Physician: Spenser Fang Comment: Visit Diagnosis: Diagnoses This Visit Vaginal discharge (563052355) Vaginitis (N76.0) If you received any narcotics, [...] documents With: Address: When: Radha Gomez [address] [phone] Business (1) Within 5 to 7 days With: Address: When: OCLE ALONSO [address] [place] [address] Business (1) Within 1 to 2 days Medication Information: The exam and treatment you received today in the [facility] Urgent [facility] were for an urgent problem and are not intended as complete care. It is important for you to follow up with a doctor, nurse practitioner, or physician?s orthodontist assistant for ongoing care. If your symptoms [...] you if necessary. [facility] Urgent [facility] has provided you with a complete list of medications post discharge. Please inform your jerker/provider of your visit and for further instruction on these medications. Any specific questions regarding your chronic medications and dosages should be discussed with your primary care physician(s) and/or pharmacist. New Medications [facility] [id number], [address], [place] [id number], [phone] terconazole topical (terconazole 0.4% vaginal cream) 1 [...] WITH AUTO DIFFon BASOPHILS ABSOLUTE AUTO 0 [facility] Basophils/100 WBC (Bld) 0.3 % 0.2 - 2.0 % [facility] Eosinophils/100 WBC (Bld) 1.2 % 0.9 - 7.0 % [facility] Erythrocyte distribution width (RBC) [Ratio] 12.9 % 11.0 - 15.0 % [facility] Hematocrit (Bld) [Volume fraction] 40.3 % 36.0 - 48.0 % [facility] Hemoglobin (Bld) [Mass/Vol] 13.7 g/dL 12.0 - 16.0 g/dL [facility] IMMATURE GRANULOCYTES ABS AUTO 0.06 High [facility] Immature granulocytes/100 WBC (Bld) 0.5 % 0.0 - 0.5 % [facility] Interpretation and review of laboratory results Abnormal [facility] LYMPHOCYTES ABSOLUTE AUTO 2.5 [facility] Lymphocytes/100 WBC (Bld) 21.2 % 20.5 - 60.0 % [facility] MCH (RBC) [Entitic mass] 29 pg 26.7 - 34.0 pg [facility] MCHC (RBC) [Mass/Vol] 34 g/dL 29.9 - 35.2 g/dL [facility] MCV (RBC) [Entitic vol] 85.2 fL 81.0 - 99.0 fL [facility] MONOCYTES ABSOLUTE AUTO 0.4 [facility] Monocytes/100 WBC (Bld) 3.3 % 1.7 - 12.0 % [facility] NEUTROPHILS ABSOLUTE AUTO 8.7 High [facility] Neutrophils/100 WBC (Bld) 73.5 % 43.0 - 75.0 % [facility] Platelet mean volume (Bld) [Entitic vol] 9.5 fL 9.5 - 13.5 fL [facility] TBH EO # 0.1 [facility] TBH PLT 378 [facility] TB RBC 4.73 [facility] WBC 11.8 High [facility] Outside Recordson 06-11-2024 Outside Records [id number] [facility] [id number]#[id number] [facility] Coding Summaryon 06-08-2024 Coding Summary HTMLBase 64 QavkdsebTCk3qKi+PGhlYWQ +DV6YPASaV07ciNNixT1bW1 NMTElOSywgQVBQTElOSyIgb iRvBL2nsSCgRUXl IC8+WW7pCWBuBkdwtGBli5V 1xTS7Z38uco5tDUqrpQN3YF SjZvLbaiuxx2szkCp1YUpkN mluOyBt TTFhiR66BVU1wX30Jw08uQD mnOTha4azgTd8TcBcRJCtFN D2cExsCTxjh2OxDZImL86rr VHle6Z3 YEBjgCvcvMMvBaGopIT4bC5 pWHyplfvom2spzpbqQbm5qi 03cKQxl7E1rCD6Z1SnviK3G GJvbGQg QjpvyUJTmM0jxpkms1bjmje fGsJeCSVdJUl0GQg4ZDRzpK bmQcDdRL87RQJ3UKOrbjYqC 2FsLWFs vNqmBlQ9h2R2Qm6IM5XLRym vO8GIBTMZFUqqeYZ+PC90cj 89E6WqAbijYtc3BVKaVHQ9r TM4wH9b ONByGBeky3R5rPH3Q9LkpiH dzv9ny0hrDQXlMEvvQ58pyZ Bni2W4QKGleUV6WVChzHnvX iBzaG93 Oyc+EKWvuAmsx8NqJtpuc8b rl5fdnPr5VqdzYGYvoaYeoB qcRFR5z8DlBg3hKPPqvZS5j IR6nS3d TbVeJjS4GRoaX276AoXncZP uCqifJ21iF5JizEW+PHRyPj r1AMVnjAvwSH6lT7WwZSTny mctbGVm zFssVA9fXIYtjnvnRKWnhA0 tVLUlD8n1JtOaQkU1UIccN8 EfFHBgabmzYg01gB5wKyWrF aO6MBqk R1UgtsF6NVWpyYBsHCcaOIW 5G98vt3M4GXUaRLUeHVH5hF X6kY8vsWassfwesKCjdHmct mVydGlj JRyaOCfvW335XQLwzQbzKtE vZGluZyBEYXRlOiAgMTAvMD QvMjAyNDwvdGQ+DEUwEGZ0v WxlPSAn gUGjEJzeMw9axIccuXomLX3 vYHFjwxjbCSAzcS9sOELdgO VwkHcxZM1jUTKgocgrm327M iAxMHB0 MLIihUXnI5TiuO1oXnAjRAP kGPCqZ4StrJRuQIokV381UE ysHwE1WVYbsuIwY6XmRBGrk WduOiB0 v6X9Rh5Nz5TzissfP3EtsUG cKwNxLguuPPb3B1JtNtcquS I+YP39JFThSH87LVj0FTY0t WxlPSdi EALuR7MjfL7iWxHsNJGwWDW kOyc+PHRhYmxlIHdpZHRoPS wiAJOoDgBwvEjxYK8oYf8uP GVyLWNv wBvejNMhLyKnu1vaZFGcTEf yOO0piRkrX4XzjRK7NWQut3 j7Mv75H10nR5FdePD+PGNvb OC5xTC8 bC7sGfBdQtX9DFdgH443UfP waQFtXdvmv5flm6gyvXh7Pi M7ACBfmrJnfIhuSPR0r9XeM v80R01s IHdpZHRoPSIxNSUiIHZhbGl yge1abW9qHh8+BAYlyVY8hB O3yB6rPnZoXbM0TKubF715T nRvcCIv Xiklz6hxp8miwGl3UfHzFIN xdqXdqCqxBQG6k4ZqFe25W8 HljFnkl9ZkQyv1du07zRYrb 0O2eXQ9 U6JnDTRlovuftSVmjYnkFV8 yFHCxgmsuBEOuhK0bADFlU0 p2DcZpJhJ9DTxcC7XjzcI0O GJvbGQg DAUosPRGiX8sldqyz9kuppr kHoEmPEDwQGc1ZYj9SISkxS amTvXeKMB2SdT6ISL1iKMof Z3nqUle qeygaP5fOti+WEC3xWXzwRP VVW6yOwdohNG+GXIuNBB2mE nsKKtiKALgbW4eARKkT3s1Y iAwLjA1 TPsuD9UkhxB7CFNrfHRfCPU ehVRHfW0vujanf7xmsiouWr UqEUVbKRg8MXu0POUieLvsM iBsZWZ0 TfX8UQP4wOHyxX5obUbkelr zxW1mElu+SwidlQcdNSK2GQ l7Y6GoKzt7TVBaxKerLL9kb GFkZGlu Hd2pyZuoiKuaKY9lRFNdvss jn423XoPfz6mpCYOlhWUzYG btOJO6K33fk0C0WWVwYIDnF KI8vWA8 uQ4ojNhctjklfSJdqUthpmQ wmUbgKPazJSefZ423GNRixR kjVtHxPAu8O5TkXsk5UMAcb KeyWC1k qEFlHFlfZo2lvAsytNyoIQ1 wJUZgchysk201BfVzh3ggKW WxwBPvCHmnOMG9X46gc4A5J CMwMDAw VMF9mJI5bJ5obTwkczxiiAQ mdDsgdmVydGljYWwtYWxpZ2 25OTPmfCrvXiPgpUk7R8JkB pj9ZANo iViqKI8yoAGkEOcqFg1iuBj fdObgEP6oZKVlqexrc870Ic Snz6inRJOrzPZqNDfzCCE4K 62ba1D3 QEAzIUEgFHU6oRV9nW9nwLg nbjogbGVmdDsgdmVydGljYW toTGmaS208HWPoeAqkZaFsq GllbnQg EXckCMn2F4LaStmvsXN+PC9 3QRBmHE63jJVobWOjr5rxhK q8SmNgLIRjSJB2gFzmQVvea 3JkZXIt W95laPYye2L7PJDvpKmezES qOfLuaTJ4fK4wPPfnxalod5 lpxtdfXmemk3dany23uX04R 29sIHdp ZHRoPSIzMCUiIHZhbGlnbj0 taJ3uJl4+YKBhbJM3nCU7mT 5pZJPaVfC6CGjvI939WcCel CIvPjxj z6imx6govQn4MuF7COTdyvB rrXodAJI1v1TkRc96I18vGA dpZHRoPSIyMCUiIHZhbGlnb o8qxN0s Ii8+GGMooWB9zMB6zM3rSgJ sQxR5SKdzV185LqAhfLUyZn owS98bH4EwgCX+LQPpVjo2P CBzdHls SE7inKCmQYpzSk8bOOC0XoE lPzXpXQswF5CrKCLeozwzvy zohZI2FTTtXAZsgP67Tt3lx DogMTBw bZZMrQ6obvvdu2jqvrwtCfS iZAMmMDx8ZUy9MYZejItoDr YzHCY5WwJ6CGZ8bSWqsO4vr Glnbjog hE4eF6AoREHviqecJw36sS8 lQzCvBlM6JZtnTff+Q1JBV0 ZPUkQsIEJSRUFOTkUgTUlDS EVMTEU8 Y6FzAng4JONzyXwkXC0pmZB vAIuxXr9vsHpsdNyxUP0yIM KfbqqbRMHllB0rUMQyyEMwm PpuVJ3d JIAwrfdjl548DqUaLOJ6JKN pdKYgG9YukY6cUdHcTVGjMF LxK4DxmEBlHUytX346BLneZ eQ7UGEs jpMqE1OvUYLthRbqNbJ5j2A 4Pp6hHk4bZC7nZQm1NC20GU 92vAFlp6M6hYQ4P4FzGSFkz mctcmln hQY2RSTtCPLzpN58mFQsOUl eMr9cx9H2b252DNKrDZLzcK 88Ld4hcQpyLJVjuYDLuY7vj krzw8vj mtbtAaLlYOPoBTq4YCu0HLX gaPhvYgXmTLV0UsF5IZX8yQ VztS6ikPsqwxcheD3xUpx+M jYgWWVh lmT8D9DvGgv3BPIjoHsiPI3 wwRPzBLahMh8vnBvrsVngDW 5hEEUshhxcWDQszV1dZMHva HRvbTog VX7cZNFxtahdb753TxPnFKR 9AVQuqMFrA6KnmZ5kRuMqQN KmJWSyO8HeyNKgAUnxY930M GxlZnQ7 LRXlziLrN1BeLJUdmFgmEdL 2i2G2Vg1XGH0GGLW5E8CjUp y6VSOxpVnkCP5gyCTiTCqyN o4rrXtw dXguDO0xCAYvgsnwJTWfhR0 fCSTwoEPubCczMA8nLHJtnb dxq988TnUiZEJ7GUHggFUrV 0XwuZ3f ZeGaQSHxNYIwQ8JjcYFzJHm tM673TJmoZjO7XVBttwLtC8 VdPRWqiBnaVeZ1w2C9Dt5Vj GXqZ7Jo H8m1T5QaIvnotOL+UW66IFV zPV64nLQxeGVwk2klyVa7Kj KkSTCmDQK3sMlpIEixt2HaL GTiG22c aIHsn1Q3FUIvzLapvFZgGfO ouKC0sP8oUBwtognxx0xqwy hwMtqdu3npcp07oG86W94mY HdpZHRo NDReEDOjBTEvbYphya7fgL7 wIi8+NJHrfRI0xBI2aY2kOj GhXsQ2SIwnZ441XnDajSVmT irsv7pc i0enuHt9VpTnPWEolnYhuDz lISS7g3FcRm34R30sETvkQM VhCAXoUYPbZBGrqVxqtv4qy G9wIi8+ OB3gm5hplq19bU39qDL+PHR bELP3oJvwXMhwQILlyF9jCB rzQuA9DSToTqVfaV63pBEvA YsoDo8c bOyzsSeeSP8kMPGkyzems77 2GoPbb0jkNRUelSMdQSogMB V5C70aw0L9CTKmOOXeUMB8b LA3aO6t bGlnbjogbGVmdDsgdmVydGl dVCzkIMgqC649FNSchZkkQa RywBLoA8vtsqGBVA4rCwkjr GQ+PHRk DHM0wIdcENzeIVWjuU0hZRP qY6j9JdOjLlS8QWfgW8Gtbe Y5CCEahDRnZGHdmGCXoX6iv aqxo5gh fnsfZoQhRAZgQRu1LJk2HDE mnHfhBpNeMRP9XzT6BCX9sM EcsL7saUnmapsyjM1gDpn+R klOOjwv dGQ+IHJwEBN3tStcZYgxPVU lwH9xBZCcJ4q7QlDvNtK6VR yiY4CqpdV9OOTmyPHhXQHrp WBHjK0r kmcmt5cszvbhYvPgMFPzABt 2FYs2YNPmsAvpGaFrHEM4Vf K1UVH7cHOyxL2wsVmnwydop G9wOyc+ TVJOOjwvdGQ+ADZlXPV8wYn mMTtvVVDxnB6sRHVsK0s2Qc OpNaZ3TEdlM4CahrW4QSNps GQgMTBw dURTnF9gidjxx0cwvtbhZnS uNOGrOFi7GGs3GFRcxYweEc QlMJQ4RtL8JSO6jSIheL1qx Glnbjog fP9nZsv+XBJ0LSE4DM11IJ7 2E6ZsArkmvPXjsXJ+PHRhYm xlIHdpZHRoPScxMDAlJyBzd ZipUH8x Ym9 (more content not included)... Normal [facility] HCG ( test) Ql (U)o n 06-07-2024 Interpretation and review of laboratory results Abnormal [facility] Preg Test, Ur Positive [facility] Urinalysis macro (dipstick) panel (U)on 06-07-2024 Bilirubin, UA Negative Negative - 4(70) +++ mg/dL [facility] Blood, UA Negative Negative - 50 Osvaldo/mcL [facility] Clarity, UA Clear [facility] Color, UA Yellow [facility] Glucose, UA Negative Negative - 1999(110) ++++ mg/dL [facility] Interpretation and review of laboratory results Abnormal [facility] Ketones, UA Negative Negative - 160(16) ++++ mg/dL [facility] Leukocytes, UA Trace Negative - 500+++ Edison/mcL [facility] Nitrite, UA Negative Negative - Positive [facility] pH, UA 7.5 5 - 9 [facility] Protein, UA Negative Negative - 1999(20) ++++ mg/dL [facility] Spec Grav, UA 1.020 1 - 1.03 [facility] Urobilinogen, UA 0.2 0.2 - 12 mg/dL [facility] Coding Summaryon 06-05-2024 [facility] KuihbtccKMb2oFo+PGhlYWQ +EU2MNGUxG43nxTKbcY1oS0 NMTElOSywgQVBQTElOSyIgb lXqOQ0kqLIvFURa IC8+VR8sAKRkWxxlcCLuc7D 0gDE8H89vhc1tNBmmnXC7KK JzNjVjkdaug6hrkGd8JYhlN mluOyBt PMDmfB49EYC2vZ74Du04oUD rvQNzk8jsoLy8FmQeDDQlSK L9mKquUFwpd8ChUCIvW27ai QWbe5X3 XRGpbOmzaRTvHeZzjIB8qD2 rOWtxszozs1wyhfixWkm9jb 37aZLib5A4dVS8M1RnwxS5T GJvbGQg RoalaKTNfB3rmyait8kmcbe aRyHoDILrGDs2TLc3MBFojG brFbWmNP06KYO2ZNMzevDvW 2FsLWFs jRxsUjX8v4K9Bj9AG2IWHkc yX1EHQCUWHFbobKD+PC90cj 03U9OmLkvvJby2JCJySFK1d VU0tA8i DUGeMRwxz0V5aRE3Z1QzopD xlv6ak3jjUDLdKDsbZ30siM Lyp2V4NMMpdJN3MPJieCnwR iBzaG93 Oyc+RRRamWtrv3ScXupzb7y ef3lblNm2DfakMXXcyrNtzT eoTNK1x7KoOk8yGBBviHI0l SU3cA5h MkUqWfU2JXsuC114ThOdkVR yHlthC09kR9OqoTZ+PHRyPj s2ZBFeoByyEV7eD0BiNNOqd mctbGVm iGzjQH8bUNGbhmpaDUBdiX4 gDGViL6l1MvMuUxB4QKplS4 IdJFRkckpoEa87qU0nEjUaY vK0OHfg A7DmmaE1SQCnbWEdXKcoAMW 1P54iz7L5EJWjOXQuLNT7uF F3lC1dqHcqsulznWWvvHkuq mVydGlj TIitPKzjO863IALftBmzWpN vZGluZyBEYXRlOiAgMTAvMD EvMjAyNDwvdGQ+BWFePAU5a WxlPSAn cNZnFObtCx1voHznrAbhMB3 rCFRsntkjWZRvsI1iZHJjzV MioLriDQ8bWCIkcdyru130V iAxMHB0 AXRkaAVyG9OzfL6eSrImRLA lVUAmC6OvzVYwLGxaD968JW laXzY6BMZlipSvL0JdJMPda WduOiB0 w9A6Hs8Wz9YonicvY7LzyXI nZgScAcahWPq3R8WsWdxdrZ I+BP43ZVPtHQ82PIj7RPR1o WxlPSdi YGRfD3RvzW3vOqUvRHYhGFH kOyc+PHRhYmxlIHdpZHRoPS mjPBKdFrEjzFjfRA3fLq1gX GVyLWNv iJvkcQKzAhYfl0cdEUYkXEa jGF5wlMjeE3BcnXC6GWHvb3 c9Gu79U03lM6DwjCI+PGNvb ZL7hMW1 wT3hHvHiUaN6RAioU776YjY yzDDqPeknc4iva0mjqAz0Ja Z2ALQlmeHmyBtwOUD0m9BzB q93N00c IHdpZHRoPSIxNSUiIHZhbGl tbj9loA6kDu3+KNEnuST8mZ K2eQ2eYrLnIuB2ESwpF978I nRvcCIv Zatrz2wfj6tmvJs2DeGgJZB fzgWcqXgmFNA5o8MpBg83N0 EcfVazp1FaSoj2lm61vRPhc 7L0rKV4 L7JqQSKrmlltrWKqfGwzAG7 hXEJxobkjGKFugL3pXJUvD0 r2RtSjVaV6QYhpA5PsvaX4L GJvbGQg RWXjyZLLeN7oarkfx0htmur lFdIoGVHyNTx4LBw0ZSTdiO kmDhNyQBW4MwJ6FIL4vGTmf H4nsMrm asfljG3sMxn+RBO1zHZerWR UAF1bElkmqCA+PVPhHOJ7nX jqXGyrDOWqiQ3tYWFiM9m6N iAwLjA1 PNiwW5QkucJ1TBHyjHZkTPC mrFVGkZ1ujfrrb2blioisQk IiEZKgKQb4EJe8EBXdrNrsA iBsZWZ0 SpE4RXJ8vYWecQ3dhPszqdr ioH3zMor+JsqqeMqnNTD5LU b4V0UwAxs5YMFalFaoWU1xj GFkZGlu Dg0cnNkvpIyfMZ8jFUWjkdr ve573IpGwj7nvUCFkrYLyOU enCIE0T85ul8S4SGMeRAAlP JJ3zBY7 pX4ecHmyuddzoDTllNqpmlX usSaxLVeoPTmqT886IVHszN mdGtBbFOs4K7YrRmb5TNOpl UzbFM0s lZUgOXpgSi8cjSrjjAqsTJ2 wPRPxfjeqg605ZpFre8fsJJ IuuJSpLSxdNCA4G53uq9N2R CMwMDAw SJV0bEP7gM8nzQxsfeginLK mdDsgdmVydGljYWwtYWxpZ2 04RHOtrSfzLpDvqYx2M3OjZ xo7BQBt tUogKK4cnIAvFUqqHq1wpKu mtRdiHU7pHCFxtbctj244Oq Gol9ehNOVfwVBxZDtvMLH3O 69ib6Q4 JNSfXYCuNTC0wXV8yK2rpTf nbjogbGVmdDsgdmVydGljYW iwCAcoM971YVRdiKimXcUgq GllbnQg XFowMDe7T9LrAmnxuPF+PC9 6VNOjMT14hNMkyFGse1hetR e9HlXzNKYbDVZ6cCynSQcpg 3JkZXIt M09ldSDko6G4YAYnjXqmlRE yHpYcqTL8qY5xOHehbrvaw4 nlcamrTxnhp8felz78zI20G 29sIHdp ZHRoPSIzMCUiIHZhbGlnbj0 xfT9yOl5+TJMubEG5xTQ0aE 1jXCEhKbI6AVubJ468XcAsm CIvPjxj e6buf7dlmVr0XsS9RMDcylJ qzSwaXRY9w3SqFy09D37lPQ dpZHRoPSIyMCUiIHZhbGlnb g9mmK7i Ii8+DQPesGZ7tTV8xL4uRiK jChT2KJnuL691SuNojPSdUj yuH98zG5DseGI+INRiLyw5Y CBzdHls UC1fkVHdSWtuFn6jLZR9OmT xZoKrDLbcO6TwWHUniwjouv kibZI4JQVmDMTlrL35Gl8za DogMTBw xGTApR8htjhti2mzmvahWwH yWZUoCZe7SKn8YDFahYfmWu FmXWM2DzY1ZIY3iPGgtO2pm Glnbjog iC9dN2JxPEBxrxdyUp52qM3 mDtWpTuA6OIdtJjo+Q1JBV0 ZPUkQsIEJSRUFOTkUgTUlDS EVMTEU8 R3HfKmw8UZMxaTxbMZ3obYS mHGenAg1ckEzlpWjdCA4zQP YnrnqgCLAgeN0cKPHifPJsy AutJT0n PSUgkytuw304JyPyQAJ5LHT hrTQtD1FisK3ePfAqIYPgTL IoR9CapDAiLJcsB700AJumG rP0WHWg sjFzJ0PiCORdyAucJhD6d5P 2Cy6bXm7aKL7cQBv4PK81LM 60qTHdj4B1aMT2F6OiBUIqh mctcmln zNZ8WGPuMXXhkA62nCZfQDn bUt1pc8O5v054RJXfSPQtvL 46Pc9hoRzcMQDyzVUBcL6bn ntkv9ks pvcxEpOlYIHaMMx4IZh5MQJ urAptKmMuSAH2KbT0IFG5wU NxqH0nyGeypbezuR4hFjh+M jYgWWVh ypM8A9JgClk5RSMfvPxfGB6 xbJSuUQjrKu7ocGvdfLcyAV 1bTVIzktjjAULgmZ4bKXUey HRvbTog ZT9tIJSjljukp458LrHrAUH 1ASKehKWvE6SudP3jVgIiCS IvVKEzZ7NmnBWjFVxdL075S GxlZnQ7 JOIwaoQpU2YvVADcmHhkRxR 7j1F6Yf0BMX1QTGK1I4YjMu c4IDEyzZzaLK7gwZSkSKwwM n2bdAjf wGlyHJ1aMUSntuffIKOkiS3 cOLTmmRXnmDrsSJ8wBJNpzx uid678WnIhTPO4KOTqxLDsM 4DuqY6q CnQpEYXwPCLqD9XhsZQmESa eL659MPbxPhT8THJesbGpY8 BeJFQbaRcxYlO0m0B4Ln9DV DwvdGQ+ QC59to97W5ThLesmKpz3ILC xODQ4aMA2xS6dIEUcYLegh0 T1fHB5M9AnhxZtur7sd0cfC XBzZTog G02xbVHwt1F5KUPwrOD2QFT imNurHwViyS49Vpy+PGNvbG iqr5GjHzcdg7ygk3yoxBz9X jMwJSIg lfAbeAjkKXE9d5GhUf56C20 sIHdpZHRoPSIzMCUiIHZhbG evjn4xyI4yAr6+VOHoaSY3p GH8gG7b VjMlXeX9HSvaG852AxRheME xRrbfe2uwv6mshBg9VzTcAQ UeohLwsLhgCLS8o3WtCo10Q 2NvbGdy g1IqFta6pv95bRQzd3Y3cYQ 8X4HqMDIjlyigiZBptNfqFF 3cAVUxzyhmFEWreY1rRWCfW 8z6FwGt MvB6QUjcS7XoizA9XGCviUA xMEGiaBZQjV4dztzdt8wiff ccMaVaTVAlGRg1GMx1LOFlq WduOiBs PCW4CsO3JPG0fNSxrC9xjVm tsptoiO2nPtg+GKj6f3nqhS ReWH3yhKV9IU49TP66nMRwy 5K9wIW4 C5ZwMCWtdlukcpewkIP8IFY cEBRbcF90Gi9ksPvjKm0rMM LzMTI6DSMwcRZbS0NzxT6zS iAjMDAw YOTkB6KtiHLhWWgjM856KIc sIbJ3FYFcbsPzH1PuWCIpfR lpLqU7g1N3Gu5GWL76HF17Q G05nCJp v4T3nOY2M0EcVWOpwgbadms prWH0DNKnNWRdzU86Dx8rdV uiXg4cBJUyGWL3CCKxaMGlH 8YciD2u XsUbZWCoIDIqV9MxdLTmABo tK995EQyyXhX9KVVwrqDzL7 LwPLVboHeeTwE6t9I1Ag1SS f11BT54 JQ22kXDaz9M9hSK7J2BrFNB qantsqadedTA6IWRfDOOtrG 26Nt1isVdmSn4jTAJgCMM7C FRpbWVz E2XibL3sMuHtVWVfDLYvC4U ldYCjWFjuZ487PVifHlG1KU GmsuWnG0QrOKKpoLdwNiT6n 0B9Dx2N CWdrpty0Q9CsTyjjoVJ+PC9 5OALuHE64zHEpiOLxw0fhiM a4AqFmBBTxBJK4bXakGExux 3JkZXIt Y29 (more content not included)... Normal [...] 113.040 kg Body Mass Index 39.11 kg/m2 [place] Body Weight Calculated 61.437 kg BSA Measured 2.31 m2 General: Alert and oriented, No acute distress. Musculoskeletal: Positive point tenderness over the left gluteal region as compared to the right. Positive straight leg raise. Positive piriformis muscle sign with external rotation of the hip with adduction towards the opposite shoulder.. Impression and Plan Diagnosis Sciatica of left side ([id number] M54.32). Plan: Discussed with patient stretches she can do to help with her sciatica. They were demonstrated in the office. Will hold off on any steroids.. Orders Orders Evaluation and Management: [id number] Office visit - established pt, Level 3 (Order): 06/01/2024 13:28 EDT, Qty: 1, Sciatica of left side. [Electronically Signed on: 06/01/2024 13:56 EDT] Radha Gomez MD [Verified on: 06/01/2024 13:56 EDT] Radha Gomez MD Normal [facility] .Auto Diff 05-28-2024 Auto [place] % 5 % Normal 1-12 [facility] Comment on above: Performed By: #### 1 [id number] ####[facility] (DEFAULT)[address] [place] [id number] Baso Abs# 0.1 x10 Normal 0.0-0.2 [facility] Comment on above: Performed By: #### 1 [id number] ####[facility] (DEFAULT)[address] [place] [address] Basophils/100 WBC (Bld) 0.6 % Normal 0.2-2.0 [facility] Comment on above: Performed By: #### 1 [id number] ####[facility] (DEFAULT)[address] [place] [address] Eos Abs# 0.3 x10 Normal 0.0-0.4 [facility] Comment on above: Performed By: #### 1 [id number] ####[facility] (DEFAULT)[address] [place] [id number] Eosinophils/100 WBC (Bld) 2.5 % Normal 0.9-4.0 [facility] Comment on above: Performed By: #### 1 [id number] ####[facility] (DEFAULT)[address] [place] [id number] Lymph Abs# 3.6 x10 High 1.3-2.9 [facility] [facility] Comment on above: Performed By: #### 1 [id number], 0732891, 4707152, [id number] ####[facility] (DEFAULT)[address] [place] [address] 65416 Lymphocytes/100 WBC (Bld) 27 % Normal 14-48 [facility] Comment on above: Performed By: #### 1 4291396, 1298452, 6341020, [id number] ####[facility] (DEFAULT)[address] [place] [address] [place] Abs# 0.7 x10 Normal 0.0-0.8 [facility] Comment on above: Performed By: #### 1 7995989, 4737925, 0610085, [id number] ####[facility] (DEFAULT)[address] [place] [address] Neut Abs# 8.4 x10 Normal 1.5-9.2 [facility] Comment on above: Performed By: #### 1 8851765, 1469818, 7452094, [id number] ####[facility] (DEFAULT)[address] [place] [address] Neutrophils/100 WBC (Bld) 64 % Normal 44-88 [facility] Comment on above: Performed By: #### 1 0098982, 1759811, 0492749, [id number] ####[facility] (DEFAULT)[address] [place] [address] CBC w/ Auto Diffon 4 Man Diff? Auto Invalid Interpretation Code [facility] Comment on above: Performed By: #### 1 3549872, 3755927, 8321918, [id number] ####[facility] (DEFAULT)[address] [place] [address] Erythrocyte distribution width (RBC) [Ratio] 13.6 % Normal 11.5-15.0 [facility] Comment on above: Performed By: #### 1 3698294, 8172852, 4409684, [id number] ####[facility] (DEFAULT)[address] [place] [address] Hematocrit (Bld) [Volume fraction] 42.0 % High 33.7-40.4 [facility] Comment on above: Performed By: #### 1 4322309, 3008395, 1189274, [id number] ####[facility] (DEFAULT)[address] [place] [address] Hemoglobin (Bld) [Mass/Vol] 13.8 g/dL Normal 11.3-15.9 [facility] Comment on above: Performed By: #### 1 3514119, 6621100, 0252344, [id number] ####[facility] (DEFAULT)[address] [place] [address] 59610 MCH (RBC) [Entitic mass] 28 pg Normal 24-34 [facility] Comment on above: Performed By: #### 1 1732772, 0388869, 6508542, [id number] ####[facility] (DEFAULT)[address] [place] [address] 94141 MCHC (RBC) [Mass/Vol] 33 g/dL Normal 26-37 [facility] Comment on above: Performed By: #### 1 7269170, 7846018, 8391577, [id number] ####[facility] (DEFAULT)[address] [place] [address] 22735 MCV (RBC) [Entitic vol] 86 fL Normal 81-100 [facility] Comment on above: Performed By: #### 1 8443327, 2352402, 8473981, [id number] ####[facility] (DEFAULT)[address] [place] [address] 30363 Platelet 352 x10 Normal 138-427 [facility] Comment on above: Performed By: #### 1 5862056, 4866019, 0663804, [id number] ####[facility] (DEFAULT)[address] [place] [address] 71099 Platelet mean volume (Bld) [Entitic vol] 7.8 fL Normal 6.3-10.2 [facility] Comment on above: Performed By: #### 1 0265160, 8403581, 2569384, [id number] ####[facility] (DEFAULT)[address] [place] [address] 02862 RBC 4.90 x10 Normal 3.70-5.30 [facility] Comment on above: Performed By: #### 1 2258720, 2193280, 7756873, [id number] ####[facility] (DEFAULT)[address] [place] [address] 41441 WBC 13.1 x10 High 3.5-10.5 [facility] Comment on above: Performed By: #### 1 8021863, 7696205, 7509428, [id number] ####[facility] (DEFAULT)[address] [place] [address] 05303 CMP Standardon 05-28-2024 eGFR Non AA >60 Invalid Interpretation Code [facility] Comment on above: Performed By: #### 1 4882425, 2109782, 4403966, [id number] ####[facility] (DEFAULT)[address] [place] [address] 35271 eGFR AA >60 Invalid Interpretation Code [facility] Comment on above: Performed By: #### 1 4133362, 0674931, 5273910, [id number] ####[facility] (DEFAULT)[address] [place] [address] 76964 Albumin [Mass/Vol] 4.4 g/dL Normal 3.5-5.0 [facility] Comment on above: Performed By: #### 1 0820023, 0158817, 0335052, [id number] ####[facility] (DEFAULT)[address] [place] [address] 54452 Albumin/Globulin [Mass ratio] 1.2 {ratio} Low 1.4-2.6 [facility] Comment on above: Performed By: #### 1 2590342, 9646242, 7193157, [id number] ####[facility] (DEFAULT)[address] [place] [address] 60323 Alk Phos 46 IU/L Normal 32-91 [facility] Comment on above: Performed By: #### 1 7273832, 3919679, 2255109, [id number] ####[facility] (DEFAULT)[address] [place] [address] 52233 ALT [Catalytic activity/Vol] 29.0 U/L Normal 14.0-54.0 [facility] Comment on above: Performed By: #### 1 1622727, 7153725, 2379073, [id number] ####[facility] (DEFAULT)[address] [place] [address] 07307 Anion gap [Moles/Vol] 11.4 mmol/L Normal 5.0-19.0 [facility] Comment on above: Performed By: #### 1 0599617, 3213969, 3968924, [id number] ####[facility] (DEFAULT)[address] [place] [address] 91384 AST [Catalytic activity/Vol] 30 U/L Normal 15-41 [facility] Comment on above: Performed By: #### 1 8524853, 4215626, 4727104, [id number] ####[facility] (DEFAULT)[address] [place] [address] 54402 Bili Total 0.4 mg/dL Normal 0.3-1.2 [facility] Comment on above: Performed By: #### 1 9724864, 0352834, 3254287, [id number] ####[facility] (DEFAULT)[address] [place] [address] 91590 Calcium [Mass/Vol] 8.9 mg/dL Normal 8.9-10.3 [facility] Comment on above: Performed By: #### 1 6261123, 4587602, 1795669, [id number] ####[facility] (DEFAULT)[address] [place] [address] 08716 Chloride [Moles/Vol] 104 mmol/L Normal 101-111 [facility] Comment on above: Performed By: #### 1 5353926, 6913904, 2636565, [id number] ####[facility] (DEFAULT)[address] [place] [address] 43976 CO2 [Moles/Vol] 20 mmol/L Low 21-32 [facility] Comment on above: Performed By: #### 1 3488054, 2548216, 8813275, [id number] ####[facility] (DEFAULT)[address] [place] [address] 43735 Creatinine [Mass/Vol] 0.66 mg/dL Normal 0.60-1.30 [facility] Comment on above: Performed By: #### 1 5593899, 2720692, 6244668, [id number] ####[facility] (DEFAULT)[address] [place] [address] 25846 Globulin (S) [Mass/Vol] 3.5 g/dL Normal 1.5-4.3 [facility] Comment on above: Performed By: #### 1 7121032, 7874719, 6317239, [id number] ####[facility] (DEFAULT)[address] [place] [address] 74636 Glucose [Mass/Vol] 100.0 mg/dL Normal 74.0-118.0 [facility] Comment on above: Performed By: #### 1 3537410, 7502621, 8226095, [id number] ####[facility] (DEFAULT)[address] [place] [address] 89556 Osmolality 263 mOsm/L Invalid Interpretation Code [facility] Comment on above: Performed By: #### 1 4338261, 8624710, 1459894, [id number] ####[facility] (DEFAULT)[address] [place] [address] 87993 Potassium [Moles/Vol] 3.4 mmol/L Low 3.6-5.1 [facility] Comment on above: Performed By: #### 1 6251795, 1354344, 8065693, [id number] ####[facility] (DEFAULT)[address] [place] [address] 45184 Protein [Mass/Vol] 7.9 g/dL Normal 6.5-8.1 [facility] Comment on above: Performed By: #### 1 8923448, 9947716, 8781333, [id number] ####[facility] (DEFAULT)[address] [place] [address] 45613 Sodium [Moles/Vol] 132.0 mmol/L Low 136.0-144.0 [facility] Comment on above: Performed By: #### 1 7433622, 3556811, 8736789, [id number] ####[facility] (DEFAULT)[address] [place] [address] 25247 Urea nitrogen [Mass/Vol] 9 mg/dL Normal 8-26 [facility] Comment on above: Performed By: #### 1 4424736, 2179602, 5902569, [id number] ####[facility] (DEFAULT)[address] [place] [address] Urea nitrogen/Creatinine [Mass ratio] 13.6 mg/mg Normal 4.6-16.2 [facility] Comment on above: Performed By: #### 1 3405191, 6437436, 4393238, [id number] ####[facility] (DEFAULT)[address] [place] [address] ED Clinical Summaryon 2023 ED Clinical Summary [facility] - Emergency Department [address] [place] [address] ED Clinical Summary PERSON INFORMATION Name: SHERLY ASTUDILLO Age: 24 Years Sex: FEMALE : 2000 MRN: Acct#: Visit Reason: Back pain; Abdominal pain - ; ABD PAIN LT SIDE, LT LEG NUMB Arrival: 05/28/2024 14:14:57 Discharge: 05/28/2024 17:55:00 LOS: 000 03:41 Check In: 05/28/2024 14:14:57 Checkout:05/28/2024 17:55:00 Address: [address] [place], [place] [id number] PCP: Radha Gomez MD PROVIDER INFORMATION Provider Role Assigned Unassigned Evonne Cheung PA-C ED PA 05/28/2024 14:19:07 Daisy Freire [employer]URAL ELECTR[employer]ICATION ENGINEER Nurse 05/28/2024 14:26:14 VITALS INFORMATION Vital Sign [...] Home PATIENT EDUCATION INFORMATION Instructions: Muscle Strain, Bmeu-yr-Xjfk; Sciatica, Nlau-gw-Llxe; Back Exercises, Rtkf-in-Tjqe Follow-Up: With: Address: When: Radha Gomez MD [address] [place] [address] Within 3 to 5 days DIAGNOSIS: 1:6 weeks gestation of ; 2:Low back pain with left-sided sciatica; 3:Pain in the side Patient Understands: Yes - Patient/family/caregive r verbalizes understanding of instructions given Comment: [facility] ED Clinical Summary [facility] ? Urgent Care [address] [place], [place] [id number] Clinical Summary PERSON INFORMATION Name: SHERLY ASTUDILLO Age: 24 Years Sex: FEMALE : 2000 MRN: Acct#: Visit Reason: UC - Abdominal Pain; LT SIDE PAIN, LEG PAIN Arrival: 05/28/2024 14:07:02 Discharge: 05/28/2024 14:10:00 LOS: 000 00:03 Check In: 05/28/2024 14:07:02 Checkout: 05/28/2024 14:10:00 Address: [address] [facility] [address] PCP: Radha Gomez MD PROVIDER INFORMATION Provider [...] left flank pain; Currently Patient Understands: Comment: [facility] ED Note-Nursingon 05-28-2024 ED Note-Nursing Career Discovery Teacher at bedside wh ile US was performed. pt tolerated well [facility] ED Note-Nursing Pt ambulatory back t [...] is A/Ox4 call light within reach Normal [facility] ED Patient Summaryon 024 ED Patient Summary [facility] - Emergency Department [address] [place], [place] [id number] PATIENT DISCHARGE INSTRUCTIONS Patient Information Name: SHERLY ASTUDILLO Age: 24 Years Date of : 2000 Reason For Visit: Back pain; Abdominal pain - ; ABD PAIN LT SIDE, LT LEG NUMB Arrival Time: 05/28/2024 14:14:57 Primary Care Physician: Radha Gomez MD Attending Physician: Pam Gao MD Comment: Visit Diagnosis: Diagnoses This Visit 6 weeks gestation of (Z3A.01) Abdominal pain - ([id number]) Back pain ([id number]) Low back pain with left-sided sciatica (M54.42) Pain in the side (R10.9) The Pharmacy at [facility] is open Tuesday through Tuesday from [...] problems; contact the [facility] 28/03 Crisis Hotline -Text 5OLUC if 963632. If you received any narcotics, sedation, or [...] documents With: Address: When: Radha Gomez MD [address] [place] [address] 78077 Within 3 to 5 days Medication Information: The exam and treatment you received today in the [facility] Emergency Department were for an urgent problem and are not intended as complete care. It is important for you to follow up with a doctor, nurse practitioner, or physician?s orthodontist assistant for ongoing care. If your symptoms [...] of medications post discharge. Please inform your jerker/provider of your visit and for further instruction [...] Summary [facility] ? Urgent Care [address] [place] [address] PATIENT DISCHARGE INSTRUCTIONS Patient Information Name: SHERLY ASTUDILLO Age: 24 Years Date of : 2000 Reason For Visit: UC - Abdominal Pain; LT SIDE PAIN, LEG PAIN Arrival Time: 05/28/2024 14:07:02 Primary Care Physician: Radha Gomez MD Attending Physician: Spenser Fang Comment: Patient Education Medication Information: The exam and treatment you received today in the [facility] Emergency Department were for an urgent problem and are not intended as complete care. It is important for you to follow up with a doctor, nurse practitioner, or physician?s orthodontist assistant for ongoing care. If your symptoms [...] of medications post discharge. Please inform your jerker/provider of your visit and for further instruction [...] (R10.9) Currently (Z34.90) UC - Abdominal Pain ([id number]) If you received any narcotics, sedation, or [...] for Disease Control and Prevention May 2014 [facility] Lactic Acidon 05-28-2024 Lactic Acid 9.1 mg/dL Normal 4.5-19.8 [facility] Comment on above: Performed By: #### 2 [id number] #### [facility] (DEFAULT) [address] [place] [address] UA Omegn3rp 05-28-2024 UA Bacteria Trace Normal [facility] Comment on above: Order Comment: Urina lysis Microscopic order added on by [employer] Expert Rules system. Performed By: #### 5 [id number], [id number] #### [facility] (DEFAULT) [address] [place] [address] UA RBC None Seen [facility] Comment on above: Order Comment: Urina lysis Microscopic order added on by [employer] Rules system. Performed By: #### 5 6514305, [id number] #### [facility] (DEFAULT) [address] [place] [address] UA Squam Epi Moderate Normal [facility] Comment on above: Order Comment: Urina lysis Microscopic order added on by [employer] Rules system. Performed By: #### 5 [id number], [id number] #### [facility] (DEFAULT) [address] [place] [address] UA WBC 0-2 [facility] Comment on above: Order Comment: Urina lysis Microscopic order added on by [employer] Rules system. Performed By: #### 5 7785288, [id number] #### [facility] (DEFAULT) [address] [place] [address] UA w Culture if Ind Standard on 05-28-2024 Breakpoint UA [facility] Comment on above: Performed By: #### 5 8755968, [id number] #### [facility] (DEFAULT) [address] [place] [address] Color (U) Straw [facility] Comment on above: Performed By: #### 5 7207114, [id number] #### [facility] (DEFAULT) [address] [place] [address] Culture? Not Indicated Invalid Interpretation Code [facility] Comment on above: Result Comment: Resu lt created by rule GL_MAGR_ADD_UA_CULT Result created by rule GL_MAGR_ADD_UA_CULT Performed By: #### 5 [id number], [id number] #### [facility] (DEFAULT) [address] [place] [address] Glucose (U) [Mass/Vol] Negative Normal [facility] Comment on above: Performed By: #### 5 9733177, [id number] #### [facility] (DEFAULT) [address] [place] [address] Ketones Ql (U) Negative Normal [facility] Comment on above: Performed By: #### 5 0488827, [id number] #### [facility] (DEFAULT) [address] [place] [address] Micro? Indicated Invalid Interpretation Code [facility] Comment on above: Result Comment: Resu lt created by rule GL_MAGR_ADD_UA_MICRO Performed By: #### 5 8606945, [id number] #### [facility] (DEFAULT) [address] [place] [address] UA Bilirubin Negative Normal [facility] Comment on above: Performed By: #### 5 3161768, [id number] #### [facility] (DEFAULT) [address] [place] [address] UA Blood Negative Normal [facility] Comment on above: Performed By: #### 5 9653414, [id number] #### [facility] (DEFAULT) [address] [place] [address] UA Clarity SL CLOUDY Abnormal CLEAR [facility] Comment on above: Performed By: #### 5 5610493, [id number] #### [facility] (DEFAULT) [address] [place] [address] UA Leuk Est SMALL Abnormal NEGATIVE [facility] Comment on above: Performed By: #### 5 3720740, [id number] #### [facility] (DEFAULT) [address] [place] [address] UA Nitrite Negative Normal NEGATIVE [facility] Comment on above: Performed By: #### 5 3453080, [id number] #### [facility] (DEFAULT) [address] [place] [address] UA pH 6.0 Normal 5-8 [facility] Comment on above: Performed By: #### 5 3977299, [id number] #### [facility] (DEFAULT) [address] [place] [address] UA Protein Negative Normal NEGATIVE [facility] Comment on above: Performed By: #### 5 9356529, [id number] #### [facility] (DEFAULT) [address] [place] [address] UA Spec Grav 1.010 Normal 1.001-1.035 [facility] Comment on above: Performed By: #### 5 5732366, [id number] #### [facility] (DEFAULT) [address] [place] [address] 68973 UA Urobilinogen 0.2 mg/dL Normal 0.2-1.0 [facility] Comment on above: Performed By: #### 5 7316536, [id number] #### [facility] (DEFAULT) [address] [place] [address] 11853 Urine Source Clean Catch Normal [facility] Comment on above: Performed By: #### 5 9240946, [id number] #### [facility] (DEFAULT) [address] [place] [address] 84718 US 1st Trimesteron 05-28-2024 US 1st Trimester [...] Radha Yeh MD 05/28/24 7:34 pm Technologist: [facility] US Transvaginalon 05-28-2024 US Transvaginal EXAM: [...] Radha Yeh MD 05/28/24 7:34 pm Technologist: [facility] Urgent Care Note- Provideron 05-28-2024 Urgent [...] History Medical history: Resolved Ankle fracture, left (98046593): Resolved. 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 Surgical history: Cholecystectomy (71391606).. Family history: Anxiety Father Sister Diabetes mellitus [...] Diagnosis Abdominal pain, acute, left upper quadrant (QRO71-ID R10.12, Discharge, Medical) Acute left flank pain (YEV21-IG R10.9, Discharge, Medical) Currently (EOW04-NF Z34.90, Discharge, Medical) Plan Condition: Stable, Guarded. [...] Fang Normal [facility] hCG Quantitativeon 4 hCG Quantitative 94165.0 mIU/mL High 0.0-0.6 [facility] Comment on above: Result Comment: Post -Menopausal Reference Range is: 0.1-11.6 mIU/mL Performed By: #### 1 [id number], 6508808, 6815915, [id number] ####[facility] (DEFAULT)[address] [place] [address] HCG ( test) Ql (U)o n 05-08-2024 Interpretation and review of laboratory results Abnormal [facility] Preg Test, Ur Positive [facility] Progress Noteson 04-24-2024 Advertising Sales Consultant Authentication Interface Message Text Attestation signed by [...] OMFS PATIENT VISIT CHIEF COMPLAINT: Toothache and [place] Teeth HISTORY OF PRESENT ILLNESS: 24-year-old female [...] canal DIAGNOSIS: Abnormal tooth eruption (Primary Diagnosis) [937833] Impacted third molar tooth [243077] Caries, Impacted wisdom teeth, and Retained dental root ASSESSMENT: #1 Caries #16 Caries #17 and #32, Partial bony Impaction with pericoronitis PLAN: Surgical extractions #'s 17, 32, Extractions #'s 1, 16, and with local anesthesia Pavan Lee DMD, MD Normal [employer] Consultant Authentication Interface Message Text Normal [employer] Coding Summaryon 03-28-2024 Coding Summary HTMLBase 64 AsnedfczWLs8dEy+PGhlYWQ +AM7WKIPuN69obTEaeX4jU3 NMTElOSywgQVBQTElOSyIgb yWsET6ioOBvENHl IC8+HN6wYZPgEsdjkUTnj9K 2xHJ8G23vca2wPWqjgTP7PY QnSnRfawzgt2igfLh2ADjjG mluOyBt FRHdhS99OOY5wV19Tg81pWR niSYxa1jbnSg4AdCaRNZjLT A2mGyyLZjba9VcCLInP77eg GSsz0L7 KLOaoDsluYRwZeQkjFN7iR5 lIFyjcvkam6kkkqqlYnv4jr 35zRKbj1O6nER7T7EqtrX5R GJvbGQg UwbgwDJTxG9cumrmf5aoana qLgSqPFOeVAz8LOt6YOZjvP cxSfOtUO60YTT2SSNpytToC 2FsLWFs nJegYiX7n6P7Em4HO2GCCir gI8PKBNUYONoebXN+PC90cj 21V9FtNwayNhn3ZXSeDLJ0a KR3cT1s WUAfBDjpz4S1kLD8V4TbatW qtk9uv5lhTXRsIAxuX67yqX Xoz0F6AZPyjYT0BWEisRqnK iBzaG93 Oyc+VHQotFbsu2MzIoppr7k sk7issSw1KdciCOEihkJwbW kgQFP2f5IdOm0rZAMtgDC0m VH2hT4z PsGkFsU6FYpmF624NgLyqAP xPujhI83nY4KjgNP+PHRyPj x6ZEVhrUhlNT7nF9OjPZTjs mctbGVm qIboCZ3pBSIrtcsnYHAuhS0 sCMYcX1x7PqRwPbT2BEhiT3 LxJOScvbakZg63cA2hNiFiI vU7EYze D9KyscC3CONmgMKlPDsjJEJ 8J24go1M7HCLnRNYtWDS4qG S3eI7loWknybuteGZzvYvcq mVydGlj KKxwDZcrU878QSNsuXufByL vZGluZyBEYXRlOiAgMDcvMj QvMjAyNDwvdGQ+DFDfHGK5e WxlPSAn mSBnEXvwCp4qzMdegTsbPX6 hDEJdosxtHIMmnQ2sTTEreT YjzIqdPS8yYOEpxuuyt710M iAxMHB0 IZVxnPUcX1FsiC0aJcUoAVJ fNGOkE3BzvIImLRuoE261NZ jlVbQ8GWMmfzUsF1CjIPRed WduOiB0 t5W1Xq7Il6MqzzdcX3XgxVU dUtGlFxhmGSv4K4RwGrlwjL I+DR49WZZbID06FPv8HPN6e WxlPSdi IGBeV7TerJ3jIvLaWAGcATM kOyc+PHRhYmxlIHdpZHRoPS swMVFoChNdtOzuUJ5dCv5mP GVyLWNv bCjilLXcUoRpd4nyKVMuXEs bAM5znGgxI2AytOL6RMOwn4 g9Uv15F82hN7TshRU+PGNvb UV7rMS1 bF4qVfPsCfD7YFxvB534JiQ rpSUxIrhis3fps9vdoVw1Yw O8QWNhrcAelOcnCMR7m3SoO c59T14i IHdpZHRoPSIxNSUiIHZhbGl iwe1quT6yJb1+PTFtdPV4aN P0kL9pLzDuIvV5JJxyI678K nRvcCIv Ocwhu3ged4kcwKi2ExIjRPW htjWymWnjRJQ3j4TmNq70X4 PckXuvw0FoTov1iu75qPJal 1Y6dEP8 E2TjYJDtuljssEHemMspDX5 sMXOnavymGRVylP7sWEPbI4 r2VrPyFyW2MLisC3DcfhF7K GJvbGQg IZWkkPJOfJ3vgmsgj4dewhl yZjQrMQLgIIh5BDr1FNOymI qrDrRfPYX0KhJ2FSJ4fIRfy F7spSxb cvlitS8gWtp+AQO9kZZagAJ JOB8eBaozyWD+GEUpEXG6sE enBXeuASSvgL8cQBXmE1s5O iAwLjA1 CLcuS6OsxdX1WWJnaUCmHVZ srCTKtG7spoaqn1okwpsjSn ZsDRTjVQn8ZMx3JIJbpYxbB iBsZWZ0 MrM8HWM8pQCtpJ9coWnmsej rsI6lCjn+JwreeOcwEUI5RT t1N3HiTfi0FFWqxKopZZ7ed GFkZGlu Wz1zoPgozHppZE7aJMDepnw hd052FuIlj1bgDGZntHKgGW jmJEZ2R21la0H2NDWtOZFxA KU9nKN9 vA0obZzkozycnMSijQnbcfQ ruExrOEerNNsvS120WCKwyH tnBxSuUCg4G1TeDgw0HRHcm XbqQQ1y jJNrDAlwCc7yqEqgvDebEW8 cNWLkfzyum379FvIul3nqFF AvzDJnQPxiFPW2J43ko2D8J CMwMDAw OPH3xCD5xC2nhUjtucuhkFO mdDsgdmVydGljYWwtYWxpZ2 36COMpqUcdQaYusPu9E1QpH un4RPXo yTcuBU7pySLfHTkgRh0cfBt xyMbdKJ0uYFLkljvzk428Tw Qil7cqGOYvaHQvOHnlEXN9P 11cv3W6 HVNlUWCqXHC4hBU8vS3vpEb nbjogbGVmdDsgdmVydGljYW deZUbqL209YPNdsRzdMcJge GllbnQg SRwnQMf3I0EpHtmbuZO+PC9 8HBUjYS38mYJgaVTcz8dflU a4JlXlIFVqPRO0oLmsRVfnn 3JkZXIt F97piVBsh9K3VVDbjBprdVH sDiVxiXZ1hB4sGYayecxxz0 idrsuuWdssz6vzmr99cV95K 29sIHdp ZHRoPSIzMCUiIHZhbGlnbj0 caA8bBj7+IOJrnGE4eBH0dL 5uHNPsXfS2LSwlL881JoRuy CIvPjxj t0maq4cfrAe7CdA2DFBwsoA czTsiIJS3o8KpOm14M00aNJ dpZHRoPSIyMCUiIHZhbGlnb i2aqT5y Ii8+CHAlqMT7iAQ5oT6gMsG jIeS6NAufX586JrHdlXRlGf fcG39zC6ChzJG+ZVGrNbf2C CBzdHls CH1imZZeAVutFr2yJKS4SeW fPeKrWNijD3IvZEHlfwkxxe rewDP5DBQpHIAoxR59Kj5pz DogMTBw fSHRpB0lrprsk2oglzbbSwZ yWITjUFv0RHw2NFLxkMnqFf DkNNG6XlU6IWK6oTNzvU3md Glnbjog fP9zT3RpKTLslwjnXm81vQ9 vHwMmKoL7NLnyQnd+Q1JBV0 ZPUkQsIEJSRUFOTkUgTUlDS EVMTEU8 T0UeUmb3MBPflOceZZ3gbAD aLVtzNp5crEotjVefQM0eSH MbwvhkUFEqhJ2wYZQpuDOlu FccEK7d PXWejoclx192YiRyKSG3WDY lfYZbC7LbbI6qQaAjXRHgQK EdW8RgoIYlLQfyK770FSoaR hH1EUCs dmJfY5MrEZNxhDsgThP9h7T 6Ug4zRn1jTP0lGLo1YL52TW 94pCWxu1G5tEL7S8VkAMQhk mctcmln pJZ2AIRhGJWhpH59rJDmJIe mCz9nn2D8y223ERWoIFTbbU 04Ee6fgSkcRNPsbALElQ9kr csfr7ih qnfvWnVmNLFkAGu6XNv3KXG fxRujWhJnSFA2RpQ1HYZ2vF XbbC2myNmujbqpbE4wMzg+M jYgWWVh tnZ1T9HlOst3EKJieDfjII3 boZScQJqzIp4jaHemmHtdLM 0sNWHnwuwzODOytJ2eJYTrz HRvbTog BH4bEFJsxdbab721EjEuWUI 8PUSexLLgV4DevJ6iGjQgOF RqPCGcD6NpxBIdGYxiG942J GxlZnQ7 WJVmkwQsR8SxXCJdvVjrAzC 2l5G6Mw4YOM2XSMG2U7RjGi o4OESgwOazQO4gtXOaASiaF w6ktOrx hCkkRL3fQKVatxjePALsgB8 fWGIpwBDcqHlxUE4bJYVohg hga450LpRkJVT6JZAjcXTwQ 4KoaH0l UqTtBCReDEYoX6FfzTPlSRf xC115JKjoMsR8ACQityWcQ9 UrNERbqQmoUtK6g3F2La8OQ DwvdGQ+ XK18ak25Y1SsEefnTyh4HWH hNSF3qIY7mR1zWPLsFGxyf5 P5gJN6X0PlpgNxva8en6jpY XBzZTog D53cyBIfl2A5MQHkxRG6WQR oeFgwEoEilT25Xay+PGNvbG fkt1GcCsiip8fpu4ohhFx2W jMwJSIg hxCltBdcUSL3c2AsCo17S18 sIHdpZHRoPSIzMCUiIHZhbG yiiv1vdC8nDh7+KNJnbYW3b UF9eZ0p SiKzOmV5YXhmX096BhAyqEN zQrshu6xdv0eybUt8OmMuRF CbztIpkJrhDDV1w6TlWr49Y 2NvbGdy n9OpSkq4ep24wBObx1U1mAN 7A3NaQUHqdveicLYsdCodOS 4sCSMsbnltGLXnbS7gRSSfW 2f9WmTj PfF0HXwvY4VmcoZ8LYAewIY oRQJlrVPXbW5hpfcoz3ccnj rtGqFeGZKgCUv7SEy0IUZzh WduOiBs ABI9VaB5VQB1nOHwvK5cpSp ahcwscI3yRnb+PZg2x0hsoQ EzDH9myNU5MU75QA49yBIzn 1J7uZH6 F6YnZXLmhziuduvroKH5FXV yREPcnQ36Em5rmGzwOc6qAE LpZCI5HJVyeNWtJ7JxkX9fW iAjMDAw UUZdK0RkfIVtEUhrP650VNw sMaG1HEOupdCnB4CcDYMnxG kxTqD4v4Q2Cw9AJZ80RK28G X29cJMn o7Q6cUZ7N5IaXUHsgipkxzd qfWW6IBMhZWRhjS31Xt7uvF zrEs5rXHQiSVA4LTRwcYBcS 3ZvcD1i WiDvXKYcQPOkM4EbgZTgJZx xJ686QCgcYlW5ONNfprEnK2 KiISCibDsrSeM8i0F4Pi9QS m50JY90 HT67pIFtm5N1gFP8I3MqDMY ztegkszcqxUD2YGHnVLEesL 20Zi9vbBkaRc3mDIFnOPU7B FRpbWVz B6WsvS4xRhMkCSHfLBRiJ2J qrJTiCRmsF191FCtqJkR7FO OmthNwL0FaIAJzcYgjBbT7e 7D8Kf6N KWlyhri4X0RcSabiwXD+PC9 6CZAlVM34cNIjvJVam3imbZ r7XvSvZRCbXOK4hPjgGYzdp 3JkZXIt Y29 (more content not included)... Normal [facility] Progesterone LCon 03-15-2024 Progesterone LC 1.4 ng/mL Invalid Interpretation Code [facility] Comment on above: Result Comment: Foll icular phase 0.1 - 0.9 Luteal phase 1.8 - 23.9 Ovulation phase 0.1 - 12.0 First trimester 11.0 - 44.3 Second trimester 25.4 - 83.3 Third trimester 58.7 - 214.0 Postmenopausal 0.0 - 0.1 Performed At: [facility] [address] [place], [place] [id number] Sarah Beal PhD Ph:[id number] Performed By: #### [id number] ####[facility] (DEFAULT)[address] [place] [address] Provider Orderson 03-14-2024 Provider Orders [id number] [id number]#1.00O [facility] Coding Summaryon 02-20-2024 Coding Summary HTMLBase 64 NrnpjyxnFGr9vFs+PGhlYWQ +DM7DUREhC87ddDGirF1jW9 NMTElOSywgQVBQTElOSyIgb yCjWU5thTMySSSr IC8+JZ4wESGgTzqlmTIgw6P 5dFO2V64opm1tVOfvuKR0FT EgWbJievwsa6zqiUe2OZauG mluOyBt QNEacC85NPW5jN68Ls98xQJ dcAMvl2guzUj3YfJfUCTdQL X5dKamENeol7RkOMRsR77cb QFkx9K6 VZItgPbufUBsOrEhrFI5pJ4 cIRjvykjod5htencnBgh0se 45uWSdu3O6cIG3K5KgcvQ8B GJvbGQg RwchxMQSnB6vhranb5nfqrx aRhWxQIZaOLm8WVg4GCLusF bkAsUnNN39ZZE9GIKbloFgV 2FsLWFs rGyqFhL2l6O7So3LV7AUCfl hT7YRZIQZMLbqzHS+PC90cj 09F4CoTtqpZii6EHNaSVN0d WU6sI2t SNNzLTdfh7B7tTI8Y6WxhsF wxq6fz3hmBAWsDOwgP48ggB Vga6K6CWIxnVD9OMZvsFeoT iBzaG93 Oyc+JFGlaGgxs5WmKalob5d wq1xzgUg5VhuaKHErqpEbgT ovQIC4k6JrUg6zASFtwXF7y PI5sW0y FtDwKhO2XYmiL526PqYrtTU fJwldU82dB3DuwTG+PHRyPj o8EYZfeCciZA1iY2KfJMXms mctbGVm dHkzJA6nXLPlowrnQFBniQ3 pKCHnQ1b5OqKbWnU3EEekZ7 VtPWUurabfOr92hJ6yAwAeY cN7LDmr M1OqtuU8TXYobEAzVUjdDBN 0C99sk0Q6RCSgVIXgRXC0wA Z5dR8noPhbwhdpeVTwtCkbj mVydGlj MLbfYIxaI149MXUggSkcBaX vZGluZyBEYXRlOiAgMDYvMT cvMjAyNDwvdGQ+PFVuYXC0u WxlPSAn oSKcNPprTv2onMfzdTlgQZ6 uYCVzpayrQTBnkT4qNKMrvG EcgKxsGV1bNOCeeehcq675L iAxMHB0 HRHvxIGiQ6PgxD2rWcHyIWS rPEKhD3XpsNHbKVssW255DU uaHxX3OLYkxsGmY4QnKNQqz WduOiB0 b1F1Mn2Qw4ElynohE7CgfDE rHlArJditVIy5N7ZrXyvadK I+SS32QMNvWR04UBh7GDO2z WxlPSdi TLKmR5FijD2iObYsHYKdQJI kOyc+PHRhYmxlIHdpZHRoPS mxGHJjFlQuvNsaFI3sOn1oW GVyLWNv kKvzpDIoNlFue4urDLLxMSa mOK0toEizS8IgdUB2ZOToc6 v1Bi65W55jV7OwpTH+PGNvb OI1cWN9 qJ7pBmGcOjC1ONgxB879JaS mgWKrOdpne2hrb9lgyHq9Op S8EPKefjPcoZqfAYR2z8JvK a03Z46j IHdpZHRoPSIxNSUiIHZhbGl twd0wbT0sPd4+YTEmtMB4cN F5eL0yVjGfUoK3ZAyzL439D nRvcCIv Bvhkn6zjr6fwgEn6XnAvDUC qwgTalUsbFLH6j1JqMo80R0 IboQadp7LtSqm0hs93aPYpl 9P7xZD9 Z5LzMDYavwkayYPscUazNI5 sUFIjrxcpBWLtfT7vOOGlY2 w1CkFeYxU7DAfuU4RrfjI7A GJvbGQg BZVneNHEwG6cnxatk2lusto qRaRcOLFpJIn2DZw8EUWtyA rxPyCtLBP0ZuN2OUF2uSFkb Y1nmFtw jlywgD3aBdd+LZE9tODvzRD NEP2sViauuBO+PRElUVJ9uQ klVOjpWFIofR9cBUBqR2u0L iAwLjA1 UAmoF2NyvjK9WISdsKQwAJE grOKTgG0nuclhd0ykvlxnXq PyTGLfBUx2LJp5GHAcpZbsC iBsZWZ0 YdM5FRZ8tPXexL3dsMcaigr knV9bGmm+DjtxjObsUVJ3XQ b8X7YrPal4RDOotWqxDB0dh GFkZGlu He2xcGfeaLbqGP3iCQQwqcf eh468MyLxh6mmWTLshUPvRN ufRSC3N67sr4B1WGHfXIEiO JG8mHB4 mS9suIignzxxrFZyhKhallR caLcjEHgcCJpqZ432SBQblS ksMiFyUXn4K1OqXaw8XCVjt QaaSE1w xYRmPSldRl5vqFdudRipAJ7 eSQMgxefsb173DhAqh3zcBO StfEYjNDazKKX0T09rx6X5R CMwMDAw KBM4oMI2wB8btNuhnupzvHV mdDsgdmVydGljYWwtYWxpZ2 13FIBvyXysFaAuaYm1F3DyQ mc5JAFc hAalIZ2xaBZdJUlmHs6vyMb qrQibDC4sNSRyugqhe833Sy Sag7xzHPQgyHOpXWdcGAX7M 38lu7F2 TQTyDVNiZRH3yLO0zO0lqHq nbjogbGVmdDsgdmVydGljYW xvTQjvU669RSVtxYqbWuPht GllbnQg OGrxDRu5P3IxNnrzyKC+PC9 5MCBrUC05aDRigDAqy8zzfW j6IfAhLQPlERA5hNayRGane 3JkZXIt E84xqVWua2T0UQVlwLxqzTE cPnZmyRE9nJ0dIIpefvyyp7 maidjrLdier0koqh87aF40I 29sIHdp ZHRoPSIzMCUiIHZhbGlnbj0 kdS8sFd6+JOYgqFR9lCZ4qQ 6kARTdUmW8PSbpL866HtSek CIvPjxj r0kxn3enlTs0JyI2MPRzpeM adSqmDHJ0h5TpLq30T96yAQ dpZHRoPSIyMCUiIHZhbGlnb i7uiL5b Ii8+AYLxpNL6cEK2pW6jYbQ dAsK3CTwjQ682EeBuzQRiFa maU87pI0OzjLR+RLCsZwl0P CBzdHls JS1hoUEuIRmjHk8bVYS8FwP rQuSrWWoxY6YdJRTckotgpo kffZX1RLLeOUIzcU70Um1cu DogMTBw lBTHaJ6firvhn1pysosiCbM uWJOyCHr0AXq0ABGdbPxeHn ThASE9OiV2FFN3oSMehI9ai Glnbjog lG3nT8VbYAKftgynIs94cO0 zVwIxOzI9ZNxlVuy+Q1JBV0 ZPUkQsIEJSRUFOTkUgTUlDS EVMTEU8 S4LjHyt1AHBhlNwyDN6ubRN cOUknOm4dnDxtcRriSX5tEL HpyszwVZQmyH7eFWRevUEha YxqTE2m DFTqndvix169FlTmRYH3AIV ixVXiY8CieJ9yCbXiRQQhCW HqB1KwoAIeHHsnE959KTcdI pJ3CNCy tlPqZ5DpGRNcpVjqZhE2c4X 5Ue1wNe2aYC1qZYj3AX90BZ 88sYQld3Z7rIM4G9CvBAMiq mctcmln dHX8MOJoZRHhaO17eEObLLy jUs1mf6H8e144LLLzQHOaxZ 49Wz5rcVucJQBizECPjB2qe skha3na vdkhHiMqRTEsVCu4QWd3ZPA yvPfrMoNsUEZ6WbS9EBF9rP FdqM5ktEypwkemaA6pRzz+M jUgWWVh nyQ4Q3McWoq4LWRzjFyuOQ6 avBCwLWbnEk4bgYuafJhhFH 0bOCLdgpynYZYcdA4cAKWzp HRvbTog CD8pAHOdndeyx775FwUdIPT 5SPBpeKYhL6PlgL8wDuNmBU BsRGUxL9MgfGUqNYpqC156T GxlZnQ7 YWNtvtKaL2YlJRPduFuxUhN 6z0A3Hi6VLF9KBJP6E7VcYb e5DEOeqZrhVT2riKXwVGdrI s9yvUed eBszKP0aSXWtgvuhDNGjwN3 kRLGxsBXaeRrcGA2yQAGqsd qww906NzDdEEC1YJXxfVAiW 6PwiJ2v JjOrNZYqUXBqH5PehJSmEKi wV216WVplEhJ0UTOwlrNjV5 RgFBSgoJvuHwH0q9E7Jb5WJ DwvdGQ+ VM33hb43O6AhRvlvAaz8ATQ nEXA7fQI6mD0vRIMvTMymd0 O2vCA5V5ExtdEjso4ve1ppN XBzZTog T15dgCYne0V6HFSpvDF7KQR xzCxjVdOewF95Xll+PGNvbG syg7ZxHkxrq3ctz8qcbMl3V jMwJSIg ihUisEsdJAL0x6HbIt10L12 sIHdpZHRoPSIzMCUiIHZhbG yijw6doV7aPa1+DCVlgQB6h VW2qU1t OsErMmO1LAjlR203UmScfVL yChoer9dlu4oyrFh3AaHnEQ VvmhBhgYcsEEO5f6QmId05Y 2NvbGdy n3FoNgn0ga36bNSxa0W5qHQ 4X9XfCVBttojauLCkfRlcOE 1sOCDfltbfTFScjS8hUDZvI 8e1AlNo InP8XLbsM8PiosO5WWHqfGX jIOHfaNLPoS6kvxipg7cyjs bnXvBgFMAeZPi3BUl3YZOgc WduOiBs OST9PiX0ISL2vXVskL8lqMm squgiqB3rMkn+IPx4o4azeG ZwTF5yeNR9AA14VQ65xQBoj 1Q9iNX0 J4EsUNSqwxgqmzcvhAE8WXX vVAKvaW33Hz5bkHuqWk7lLC HzJHL3ESVxnWBpY3AlnF0xW iAjMDAw RMFzX3BstLUaDYkjD104ZVl nBrU2VUDohrCtK1GdOJReyP qkRcI3b0O4Qn2EYJ18MF93U R30gRAp l3I2iBO7U4XlUTSkuptjtct tiOG5YKAxXVWedM45Av0yoR dzRr2gLDYeBHU0HZUthDFhO 2JrcO3s CkHfMQJbRYKiY9DwuHUdFQr dL882YQieCkR8BTBgrdNaN3 BdIWJrxMtmVvS3s7T8Wt8HC j40ZD04 KX43lMWrn7D0mYR3X9UbGWP vhmmxkuaxkQN1YYJcZZIftO 13Ug5wxAhtWb5sLNWmOET9F FRpbWVz C1QmwV3tSbPpMBSeSLTxX7G cjBEwHKhgK187QXjwUnT7EX SvyaNyH3TvQTTmgSsfRaT3u 7N4Pv8R BSggzvo6Z0DdFelynIG+PC9 2IEXaHU43jFZueWWkb5hoyH u1TbKcYOIkPAX3dEyvMGujt 3JkZXIt Y29 (more content not included)... [facility] Progesterone LCon 02-15-2024 Progesterone LC 18.8 ng/mL Invalid Interpretation Code [facility] Comment on above: Result Comment: Foll icular phase 0.1 - 0.9 Luteal phase 1.8 - 23.9 Ovulation phase 0.1 - 12.0 First trimester 11.0 - 44.3 Second trimester 25.4 - 83.3 Third trimester 58.7 - 214.0 Postmenopausal 0.0 - 0.1 Performed At: [facility] [address] [id number] Sarah Beal PhD Ph:[id number] Performed By: #### 3 [id number] #### [facility] (DEFAULT) [address] [place] [address] Provider Orderson 02-14-2024 Provider Orders [id number]#1.00O [facility] Coding Summaryon 01-19-2024 Coding Summary HTMLBase 64 EqjlclrvZPw9zZy+PGhlYWQ +UJ5EYQTfK74jmRPjqA3zV1 NMTElOSywgQVBQTElOSyIgb vIrXE5ikIDvCYBr IC8+IA0hAPOtJgigyJYej1D 3mWI3Y17jjs3wNSkthCK5EZ JgDuZavbfsz6uhyIa1RFcpX mluOyBt VBHhbW01QQZ4mY70Cf93pRI jaGRjb9eqdFv3AsDiFSVnIX H3wEouOGkms4RhBQYcY07ph VEwa3Z3 NXSfvYjnvBSsNrXwtBB5nK6 jCGyusnghe2iuczkrHxa6cm 13mDEvh5F5vIH0X6OgmrB2A GJvbGQg WczkiZRNoL9vvqlow6ipadc pHaQwMKPeDBl5SHf6RFTsnL rgFfMpAC09SHF8FKEuvlJcG 2FsLWFs kEjzJdN8x1G5Lf5RA8EMJxt kG2BTLFCHGQyhfZA+PC90cj 95A0MsYltdBxk9ROXxDXS1r YL4tN7m AMBeFPxwx7S1zHX2Y7GkenH naq6ri2ydHLTdCGvcB64wiK Iux2P9AJRyxZK0JSYveYliU iBzaG93 Oyc+GJYrzEruj7WfZzqgi6q vf3djmCy5PppbCTKxlySycF tkAUM5h7HvIp0sSCAduBF1c KS1hG5z EjChUoS6FUilY249NwPruPT yNbaiS78aA9JuoHC+PHRyPj c8CEDfnOniUU7iI4UdRXYkw mctbGVm mRhsMH7tLRTfeyknGFNveQ8 eULGfB2a7DcIdPdK8MApyQ7 JxKCGyixnyXm61hL3cIpNlT eG9RFey Z8SqyeI0LQAphIFtUZxyTWB 3K67hi2N7KJYzDMMxXFO7uX T5uY8xhDelfbobxDHszAroh mVydGlj VMruRRtiB771UHIcwJqpNgS vZGluZyBEYXRlOiAgMDUvMT YvMjAyNDwvdGQ+VPFnJXW6k WxlPSAn uABoZXtyXw7goOpmsDupBJ4 cGOCesslhKPTpnW0fMSLxoN OahIpsAX2xFQYbiiteb884V iAxMHB0 JCKvtRGdH6PqcH8jJnZxLYF yKVEaO6DqnTAlBHjgT775VH opNpA9LAHqwwHrZ2OfCAWpe WduOiB0 b0M7Gy0Qo0GojjuhC5GiyUN kXfIfRozmUTz5B5CqCcenhM I+PD03YSWeHK89ARq5TSE9i WxlPSdi HQPuE4VpsP2dBrCsODFkDBX kOyc+PHRhYmxlIHdpZHRoPS azXWUcFmXdhDfcFW4mDz0pU GVyLWNv mPcliPDoPoKqp6brOOPyOGr xKO9msBspW2SqwNG1JNEdv3 v5Mn05L82mR8YeuBH+PGNvb AF0eQJ0 uC1dGyGvHcU5GWxeU632IzB vtFXyVrsku1jwu5gzfBq0Cm K3UCRrfzTydDumOAD9p4KcB w29M03h IHdpZHRoPSIxNSUiIHZhbGl pdz6ttE2cYu4+SBPurRJ8iQ E0eF9vKwWiZcR3NTclJ364L nRvcCIv Gpwpi8gjb0ebnSk2CzAdIJA iqiDmuHiwWCD8v1BlSe54P3 DtjNrxx7RjIsi5vg32sDSzw 9U6dMB8 G4OxLGIiswzajQEhkHfgGG2 dGUZnejpxTRBsfO6xWNBhK4 r1WaClYbF4YJjpH3QnigA2C GJvbGQg YTXzmPCKbL3thvkmd6auyvj bEtOiFKOzUAu0HEo3XJGiaJ ijPrYuHOV2JyY9NJC2uHSer B2sgZod ylkhlK6mQna+LXM5nTUzkQM RXC2wDoohoKB+IVPrKLE6sB bvDHkzMKKwwT8pRXIjA5g3V iAwLjA1 MRzzA9EhyyG2WWRndFKxATY ycSHGoJ7gxpfpc3cwkvzaGw XwAROyYFk6RHx3CXRssTcuN iBsZWZ0 ZrD8KMQ3fJMkwR7nkLlsjzo eqZ5dMoa+OmgjhDjsNEU0FN w0H1EnHab2ZDVxnVurKI2mi GFkZGlu Ac4icLakeKmcRY8rVEZsutc wm516XmRad2tcMFKfrGXoBH anEMZ6K49sa0S0TAGrLFYqI JW1fQD1 eN2duCtbbnbpcVMpuOwdprO zoYfoREhaHRhrH759XIYgvB aiNkMvVRx7E6FbFqb2NETpv KozKL7b lJRcAVueNu9fdDdhwWqcBD7 zLSGemvhca884BcVbu0iuIC GgfZLtXWuxVAF0W08hu8T9K CMwMDAw LCO7mGT6sX5ytKpishjxgNF mdDsgdmVydGljYWwtYWxpZ2 72AHLexTixHoBsgUk3V2SoM jh2UNAz nCdgIR7biKIrQNycEx9akSb bpJdwUN5xASKsmazvt198As Jra2ybFUTmsADrFUoqNGF4F 33ud3D3 UKUjVPOmWWI0vXX7eI7anLm nbjogbGVmdDsgdmVydGljYW gjOQayF437TFRzzNlqYpTap GllbnQg RXjbSJh6U5GcSbaiuTS+PC9 4FDUaDQ84mSAinHVza5yduK a8ElJbLCBdSSR7fSyrDGuge 3JkZXIt B28nwUQpg1K0KQUasKjdpOB uRrLrqFY0qK9uHQaoswwmy7 thkxdcNfrij6xpra12hD46J 29sIHdp ZHRoPSIzMCUiIHZhbGlnbj0 qkL0vKh8+SKHhqJP0xUT5hH 1rNTKqEzF7RMyhK631BmEgs CIvPjxj f8qag2douNd9OxJ6SQSrdxC bnWxrKWC9c5TkFj28U55yZN dpZHRoPSIyMCUiIHZhbGlnb w3pnR9g Ii8+AESurWG9wGI9lI4tPjZ jFiR1UFvcB472NaIdeSZhKl blV95uE9BooBE+UXWcClm0D CBzdHls MS2wwSWfKXupJx2hPZK3ZkM fGiHdJDeuY2CeKNKjpyhtxp hduYF7KWAfZGVkgI30Si1rx DogMTBw nAAEoC6rddvgl9xjmzxwRcU fUMMqNRl0DHe8HDCpiJezBe KbTHW0LgS3JAR2hOHfgK1yw Glnbjog lB6tX0CaWEDlyuzkYe77oV2 cQcBmWzZ6CQonVut+Q1JBV0 ZPUkQsIEJSRUFOTkUgTUlDS EVMTEU8 T2CdGmt6QZVuyZjiTY6vpCO fWVnaDs7hxJjzaZhvVR7wPT PhfykqPYZxcF3wTVFfxFLnq KioHM9h JKUgelrce119XaRbLMZ7QIP tjWRbN6UhpA7vYpYaPQVnQL LeY0RhgHIqPCbbI966FRszG tB8AYTz kvHqG7FwWPHltHsjBiL3v4K 3Xb9rRb2lKE7gMFn7AN38KN 96yFHbk8T9wNK4P0LpKVDmc mctcmln fSH7ICVvRWEivZ38aBXmSVx tMn7at6O6g913OGLnBBTrbT 67Sg3aoLlfTPKmaUPLyH7ab dfeq8wr oihkLeVaSMNoMHp9MNf2EYJ kuQduTrYyXXL9ZpT0CXI7oU SqeR4qjMjhmoyojO2vOxd+M jUgWWVh nbI0N3AdOdn3YVWmrNnkOK4 alLAoPIhlBn2szViqwHjgTK 1kQUIibexnJIFhrN7hMTFky HRvbTog KJ3yZDSoamrpq854VfDmHSI 8CYEqvDOvO9DseJ6cOjHqFZ OyBTHuG6IucXHsVXpwG160O GxlZnQ7 QXJppgAuV6AqSHYtmMmmAkW 0y7E0Pm5PFA2OVTA4G8WqFx e8RSKawFgpVG6gzYCkKCspR x7woWzd iVmsSB7wNAIuutguZQVokD2 zELIcgIVnkEzeNI3gRSMgly ufa126XxHvMSK8NGVdrAAzB 8WxzF9m FoGeWVDoHSCqG3JozMRvDJr cZ325WAwtHcY9YANyhtVdP3 CsQYHyePjzXsN6s2E7Pw4PU DwvdGQ+ JF12dg43R5KoCqczBsa4XHU dNAF9aCM8vQ9nJQLcFSssp8 U5hZE6E4YizhSbcx0tl4srE XBzZTog L12gxODio0P4TEQerVN7RJQ ncVndLqXyiH71Ybv+PGNvbG cof5BsCjbrb7cos5oljSk5G jMwJSIg syMlaQnaFDO5g7PwQv61A29 sIHdpZHRoPSIzMCUiIHZhbG dnup5etK3oOb3+IQEqkSU7t KJ6eT6z IhDaZhT1IZktO651XzSfnSU oUhplc7mpy1lmvWy4KdAiBA QhsxByaCajMQQ3g5CkQl34G 2NvbGdy s3FvOyg7bs29gBVis6C1uRT 5F7TfMKYkhnhfaPIuvMjvBY 2uIRSnkhpoFLLvhL0wNKXhB 1b3DaGq CwK0BBurI3CfchW4SBHooUX cDJEmbTCRnA9htjhdg3gxfk wrOsIqTFKhTTj7TWw5QMIxy WduOiBs ZCM8CbT5HTS6uWWfkB4whGc zygpfvC8nUtt+IDr2n3jlfK SeJR7jbNC6RW86EF77fGNnv 7H5uJW4 C5PbAOAhshbnetptqCD3SAI oKJIynE65Ga9puIjlVr6kOJ JdFFL0CFBafMRyX0XtmB4mZ iAjMDAw NYWmM7GkqMWkWPsiD718CTl iGiO8PWIlhyUiC3TmNHPclY drVaR1k2L2Tk1ETJ57LJ09C L36fOGu v6N1cYU7O7SsNPWpzxisarg tbOX5WYEwWUHqbK90Vd7zkO brYg8uNCTfDGB1RURgmFBkO 0SroR3w VvMfIIXqNOLsO3VmpYBcSMg nW204NBkdWpG7KYGjjiKmA8 TsRXDkwZjzHwJ3y9F7Oi0EL s32NI46 ZW19tXNwr4Y2sFQ4W5VxZMZ yxtcnfkxpnTK6UCLwBRVevQ 26Xr7kxWlyPb6yDAHkRFL5W FRpbWVz X8StfE1nCsLoQWUgETJnD5Q eaKEiRIeoJ701JEffYmF9WC DzsmNeH2QaGUTldWriJhU4p 2U1Bh2M MAdcuac7N0PeYdqmiZA+PC9 0CAXlGP23mXOlnPIkd2iveL s8DwZuEGYrOFK8mOanMQbfw 3JkZXIt Y29 (more content not included)... Normal [facility] Progesterone LCon 01-18-2024 Progesterone LC 14.5 ng/mL Invalid Interpretation Code [facility] Comment on above: Result Comment: Foll icular phase 0.1 - 0.9 Luteal phase 1.8 - 23.9 Ovulation phase 0.1 - 12.0 First trimester 11.0 - 44.3 Second trimester 25.4 - 83.3 Third trimester 58.7 - 214.0 Postmenopausal 0.0 - 0.1 Performed At: [facility] [address] [place], [place] [id number] Sarah Beal PhD Ph:[phone] Performed By: #### [id number] #### [facility] ([facility]) [address] [place] [id number] Provider Orderson 01-17-2024 Provider Orders [id number] [facility] Summaryon 12-21-2023 Coding Summary HTMLBase 64 GxwfnytkUKw3gGu+PGhlYWQ +RU7TXUGmK13sbVLiqG0rW0 NMTElOSywgQVBQTElOSyIgb xQlVJ5vdUGuCNTp IC8+HE8rKYUfEfmdmFCoe1U 9cRK5B18yks7qHRkdbEE4FE AwOjTblokds0nhsDt2QFikX mluOyBt AYRlnV31VHE8lQ59Hx86iVD iuIQiq2omzRk6ZrVpJNEqYZ Q2hMmgGBgdo4LpJLNdO01jx LWys8S1 PMOgrLuvdMPmZjIklHE3qH2 gZJlsbjdlz7chrakbPgy5fo 37pVNci4F9oAU6L6OksfO2Q GJvbGQg JtabjJWNaG1jsxgtz3xqeid jCnVkNUQhROz0YKy6JTYqvE zmHuJcMG92WRO9HLTlzcQmF 2FsLWFs vRlqRkI5g4M6Re7KM9GFXsq dG7KRMVOTRLxrfPG+PC90cj 31M4XzDoveMzj1ARXhDUT3q XU7mZ4h AFOwUGvvz0K2hSC4I0QtvuN bkr9if2ecZMJmRHyvK50hsJ Ldn2C7WESevJM4XXFkmZuxM iBzaG93 Oyc+JCUsvMhim3KtKsvjf9d ig1ydmKu5OwtyTWOxyhXvnB pdJSF7x4QrYa1pBUHiiDA3w MC4vV9b QvHpGmT4DShnV062JdSufOK rIvmhU50vW8JakII+PHRyPj z3CGZuhEbrQJ9xD1SyFYJsg mctbGVm yGdyUC5iGXBngszvEHLsnA4 xIJUaG1v0XyOmWlM5UOhnO0 QcROEnyafzHw72sD4zOhOoS eH5SEhl T3QnvmR6DORhhHEjPYbiGNA 7E98pd9C0FLObZAIhBCF8gR D5wG5aqMrpnmqdlBRouXcau mVydGlj ZMydHBztM005RXBwdMfnQxZ vZGluZyBEYXRlOiAgMDQvMT cvMjAyNDwvdGQ+FGBxYQU5k WxlPSAn iRSdFYiiKx5nfZrhoNnzNK9 kWSGkubjsPHLkyC2fJNXbjJ ZmmKkuKS1fSEMvveidr540C iAxMHB0 RQCrpANtU3DcsN1zTiBxNUE iJDGnK5EysFCrFVxgP578IE bmIoQ0CSYgtrLrT3DvEBNfg WduOiB0 s1J6Ns1Nd2RioxwvN1WshCB vCvRvGskwIAu7N3SgOxqnvQ I+KY05SIIxUM19SSl3SCH7q WxlPSdi KTQnJ2KfrK5jGgHoMQQaUGL kOyc+PHRhYmxlIHdpZHRoPS mzUCEmBrZuhHpwQW2jEc4wF GVyLWNv pAwtoAAdKnJji5qlKJFqPHf gAG1ruMfaP3BggQQ5NQVga4 e0Mx58P23xS1LooRW+PGNvb CX0nCI2 bJ6nRfDrBlY8XZivG876LuL niNAkIqslm6dov1qevUf1Qv T1MYTikiTdtWcgOUQ0s1UzA j87F95n IHdpZHRoPSIxNSUiIHZhbGl hmw2bqK0xHu0+CFRbtGN4dR Z1vU7fOvDoGqZ2VWgpR914D nRvcCIv Aalll0mrw0itoQk6QzGvQXK nihThzHxzUPA3v6GtBh56O9 YnmKjgj1ZaDjt5wh36sWQlk 9Q7tOU5 U9KcGCHijvmeiWZiqEesPA9 nVALsitlzOATyzD5rFVTlW1 c3ZyJzDnD7EVnxQ2JhvrF9I GJvbGQg UXHltOEOqT0ipynjn6immax mDmNzNZVoPGa2TZk8NMRrjY fwGbZrKVU1FxX5KCJ7wZSds R6yjRmm zromsA5yKuf+OSP4aLIjmWG IJJ6mTdwyhGQ+NRXeMUL3fZ oaJExxSNRqdR8oQVMhL1b7L iAwLjA1 OLrmV8YffmT9FTMitMDhDPZ tbPXQoO9fddeqh4zinamhEb DxZMMjHVe3YUs1NDYewAgcB iBsZWZ0 DbK2DXB6gBPteF9fnYzkanp yzT3bRum+JajyaEgbMKG0MB m8W6YdIub8RDTzqEvoFF4gm GFkZGlu Xf3udHwjxOilVO0uEINuypy wn913VkJpu6iaSBYfyNZmGD rjBEL9N99yj2T7TCUxFUZoP RK8oPA7 jL4znOywxqrohSLdvNgoxsU teLqyRTznLAytA219FBXugV dhOeJhUEa4L3YtYex5GEZcf EjgEY2s bYAsSAhjYy4rvDmwpNlgZI3 qOISgeapzj967ZaUcm0hyNU HhfMFhLGprQOR9U90tx7M1Z CMwMDAw KOP9nQR7eH2ngChmywocgOJ mdDsgdmVydGljYWwtYWxpZ2 90XRKivBtsOkVusMa1N8AiM dq0JXDz pDkuJI0pkPBaJCpxOl1jxVz mrQvmZG9jMVDjsqzgc768Lp Bkl2hhNXYcpRQkSIroNZR8L 27xk5D7 JJKmRURpYLQ8ePQ4fX1qrPj nbjogbGVmdDsgdmVydGljYW zzUXutW186SHTrvJtvJmPcy GllbnQg JYizOHe1X1LjHncscVF+PC9 2BNGkUJ74yYTomVEyd8lssE t3LfKtEASqPGE0nPtwBRgoi 3JkZXIt W14cjRHyf2M5LPMnyIbycIF dTjErcBM7eV5hKZijuvkhz8 fjrhptXuqed9fyen64oU27W 29sIHdp ZHRoPSIzMCUiIHZhbGlnbj0 zgS3xGs8+ZYJvoHI2fTV1hQ 7lQJBlKjR2OBrsE304SyHfw CIvPjxj l2yjb7ubdDf0TaJ8XBXocoM qnVksGKR0v7MhGw61V14qFT dpZHRoPSIyMCUiIHZhbGlnb n6noE6s Ii8+NKCvuCU5cLU8dV5wScS tJqR8KJdeM038XaTccWXzAa iqD68xJ1FvmOO+VTSzBaj1J CBzdHls RY1caRQxQPxzSb2zYGA9BgP uNnLrYAmyD7ViKKVvwvhouy yxdVM9FVNzZGFyhS95Rl6ew DogMTBw rOLDwL9jreodq9ndpaycIiT xTVFzWUj1FLe7RPFgaPusBv MdVHB0OsO6FVB4cLUpkM4vc Glnbjog lP6wC6PdFROlfloiRd11uU3 tPnUdIsA0RXyzOaq+Q1JBV0 ZPUkQsIEJSRUFOTkUgTUlDS EVMTEU8 U4HwIaw4XWSpdTxiIX6eiGD cOBeiLr6qpFdolFbcAZ7kUY PnsojsWAErmM7sNCMojYOyl LruGR6b XUZozsnuk522RpSkYDR3TDO wxOYlJ7IqsE4yCnTqDWIqKI ShJ5BsmEItMCfmD214WZmyF fE9QPXj ckDrP1TrTIKbxRrnXaS1a6I 8Ad8qDa3xRD9zACb8EI60MW 94yUPhv0H5dTV0R4AhVLLyo mctcmln cDP6MAYvEURcqU71uDCwZRr aZw0bz6F1s991CRMmICZuqM 34Ew2voFlsBLLapARHoS7rp avmn5jo avmkYiSyCFGxQAu8NEr9XRW ugZlnYhXaVZD4ZgA2AYW6uT EmoP6irSkligzwlI5rSqe+M jUgWWVh goT6I4SxVrz0YALsrSwwIT5 knPTjHVjqWq9ipYdgfNdjYL 6lSVNhucstBLZqrZ2vTOChh HRvbTog EM5aUKSzxmjqy311PsBaRSU 5SNEvrERiS2NtiC8hJnEeTY AkPEXcA7WzyEVcLZxwD311B GxlZnQ7 ZVCczfQeZ3BeUJOatGhqPmV 5c4M4Td0QJY4QYLR5T0SpCk a2UHWzeWksUF9jgYAtFChpY v4itJtg eSvcST5uNBCodrnoIEAajF2 qJIEtjSWuiJylOO0iXZBgke sqm598FdGeKTM3RHJvfORpT 9HizI2m LxObVVGnGYKzE9ScyENpBJx rS082ERtiDeW1LTFcyjIcB2 RyYZEaqIvsPbJ6b9N3Uz6GC DwvdGQ+ WW50tw01J5FaZrqtTct8PSO rJHE7eAP0aX5vIQDiKUzex6 X9hIG0P0WbvyErhx5dw5bzV XBzZTog L52rjURpd9B6IOYxpAT5KZM pdFxyRsEotO55Hnt+PGNvbG jzz7RqXtmgs4tkj2yqmHt0Q jMwJSIg prZofCcdBHZ7q5EdFv51E13 sIHdpZHRoPSIzMCUiIHZhbG dzey1djJ9uZg7+AKDnbHF4h IE2kV1l PbQzKdP5ZZzuZ201VfEeoQB mLqkel9rke2bikSc8NtCjWH XzwgUivIuzUVK2a5LcRh27M 2NvbGdy v5HtWda5ab30yRZap5Z6iZR 3Q3AfXXAbhfsvvEMtrQsgCI 2uSEVkfzdkGWVhmT4aEXLpY 5m1TvAm GvE5VYsuV6CdluE0OIHauND zXLJoeNPImH4xigjmk6otly dgZkJvFERfPOx8ZCn8TLSyw WduOiBs DBD5WxM4OGR5nTIjuS3qyWl ykzwkvC4sHyq+JTh2n7sqaZ AlKW1jsLO1DQ71NH21yWXya 0G7dYJ2 Q7VjHSTqvhnvseaosRO9SMZ xJYFzgH58Qb4oxBozKz2rUE TcRYY7FHSxkAGcF5OnqT3cH iAjMDAw DONtU2KjaPMyXKtxM180WWe rYwV6QGNxvcZgU0SgQQUwtD nzRfY5h5J0Tu7LIY27CZ66J U79eXDw k5O6kMR8S0KrHCTcdnusqxo mlUL2JHWqNRDhmW30Vz6chQ kqUg0nNLZaBPP1JLAojLNtS 6PmlG8g WzVaYWLqIOEnJ2AseFVmBMf kS675VEbvYyM3NEImukAaC4 VeMNXwtCzoMbH1h5F4Kl0IO j03MV45 WU36gGOmf6F6hPP9F3PjKJR pxlnrpxuqqUA0GJOrUTIasU 39Kj8wnGwpUa0uJYPjGWG5Y FRpbWVz T8XtuD1lDmHcBCUrGPIrV1U tuVVpLNpsU953NSjiGnM4RB AgxiTuR7YdAENhrNoyKoU7f 5O8Cc5W ZKkwuoj6S8AyZhimzUX+PC9 1NNHxEK28zFJzzROwo5cgiM v8UsRkZXBnOTG6lZboDRaig 3JkZXIt Y29 (more content not included)... [facility] Progesterone LCon 12-17-2023 Progesterone LC 9.6 ng/mL Invalid Interpretation Code [facility] Comment on above: Result Comment: Foll icular phase 0.1 - 0.9 Luteal phase 1.8 - 23.9 Ovulation phase 0.1 - 12.0 First trimester 11.0 - 44.3 Second trimester 25.4 - 83.3 Third trimester 58.7 - 214.0 Postmenopausal 0.0 - 0.1 Performed At: [facility] [address] [place], [place] [id number] Sarah Beal PhD Ph:[phone] Performed By: #### [id number] #### [facility] ([facility]) [address] [place] [address] Provider Orderson 12-16-2023 Provider Orders [id number] TGTIFF [facility] 01-04-2022 L --- Specimen: [id number] Received: 01/05/22 Status: QUOC Garber Num: [id number] Spec Type: Surgical Subm Dr: Rodney Lema MD Tissues: A Skin-Other than Cyst, tag, debridement or plastic repair (SCALP) Procedures: HE Stain/5, Gross/Micro L4 Patient Age/Sex Location Account Attending Physician Sherly Astudillo / LATESHA [id number] Rodney Lema MD SPEC NUM: [id number] RECD: 01/05/22 STATUS: QUOC GARBER NUM: [id number] JANE: 01/04/22 [facility] DR: Rodney Lema MD ENTERED: 01/05/22 [facility] DR: Dea,Lab SPEC TYPE: Surgical DEPT: MAG [...] of Fixative: 10% Neutral Buffered Formalin (SM/YJ) Specimen: [id number] Received: 01/05/22 Status: QUOC Garber Num: [id number] Spec Type: Surgical Subm Dr: Rodney Lema MD Tissues: A Skin-Other than Cyst, tag, debridement or plastic repair (SCALP) Procedures: HE Stain/5, Gross/Micro L4 Patient: BaudilioSherly M [id number] (Continued) Specimen: [id number] Received: 01/05/22 (Continued) Signed (signature on file) Debora Cintron MD 01/07/22 09 Specimen: [id number] Received: 01/05/22 Status: QUOC Garber Num: [id number] Spec Type: Surgical Subm Dr: Rodney Lema MD Tissues: A Skin-Other than Cyst, tag, debridement or plastic repair (SCALP) Procedures: JASWINDER Ellison/5, Gross/Micro L4 Patient: AstudilloSherly [id number] (Continued) Specimen: [id number] Received: 01/05/22 (Continued) Microscopic Description Six glass [...] determined by the [facility]. Immunohistochemistry assays have not been validated on decalcified tissue. Results should be interpreted with caution given the possibility of false negative results on decalcified specimens. They have not been cleared by the [place] Food and Drug Administration. The FDA has determined that such clearance or approval is not necessary. CPT Codes 81083, 83065, 53452 Specimen: [id number] Received: 01/05/22 Status: QUOC Garber Num: [id number] Spec Type: Surgical Subm Dr: Rodney Lema MD Tissues: A Skin-Other than Cyst, tag, debridement or plastic repair (SCALP) Procedures: HE Stain/5, Gross/Micro L4 Patient: Sherly Astudillo [id number] ([facility]) Signed (signature on file) Debora Muller (more content not included)... [facility] Cytology Cervical or vaginal smear or scraping studyon 12-26-2019 [facility] Vital Signs Date Time Vital Sign Value Performing Clinician Facility 12-18-2024 13:53-0400 Body mass index (BMI) [Ratio] 44.95 kg/m2 [employer] Work Phone: [facility] 12-18-2024 13:53-0400 Body weight 130.18 kg [employer] Work Phone: [facility] 12-18-2024 13:53-0400 Diastolic blood pressure 90 mm[Hg] [employer] Work Phone: [facility] 12-18-2024 13:53-0400 Systolic blood pressure 130 mm[Hg] [employer] Work Phone: [facility] 12-11-2024 13:39-0400 Body mass index (BMI) [Ratio] 45.53 kg/m2 [employer] Phone: [facility] 12-11-2024 13:39-0400 Body weight 131.86 kg [employer] Work Phone: [facility] 12-11-2024 13:39-0400 Diastolic blood pressure 78 mm[Hg] Cole Celeste DO Work Phone: [facility] 12-11-2024 13:39-0400 Systolic blood pressure 126 mm[Hg] Cole Celeste DO Work Phone: [facility] 12-04-2024 09:01-0400 Body mass index (BMI) [Ratio] 44.95 kg/m2 Emily Lundy PA Work Phone: [facility] 12-04-2024 09:01-0400 Body weight 130.18 kg Emily Favian PA Work Phone: [facility] 12-04-2024 09:01-0400 Diastolic blood pressure 86 mm[Hg] Emily Favian PA Work Phone: [facility] 12-04-2024 09:01-0400 Systolic blood pressure 130 mm[Hg] Emily Lundy PA Work Phone: [facility] 11-22-2024 12:01-0400 Body height 170.2 cm Ahmet Soler MD Work Phone: [facility] 11-22-2024 12:01-0400 Body mass index (BMI) [Ratio] 45.11 kg/m2 Ahmet Soler MD Work Phone: [facility] 11-22-2024 12:01-0400 Body weight 130.64 kg Ahmet Soler MD Work Phone: [facility] 11-22-2024 12:01-0400 Diastolic blood pressure 80 mm[Hg] Ahmet Soler MD Work Phone: [facility] 11-22-2024 12:01-0400 Heart rate 90 /min Ahmet Soler MD Work Phone: [facility] 11-22-2024 12:01-0400 Systolic blood pressure 115 mm[Hg] Ahmet Soler MD Work Phone: [facility] 11-20-2024 08:32-0400 Body mass index (BMI) [Ratio] 44.64 kg/m2 Cole Celeste DO Work Phone: [facility] 11-20-2024 08:32-0400 Body weight 129.28 kg Cole Celeste DO Work Phone: [facility] 11-20-2024 08:32-0400 Diastolic blood pressure 90 mm[Hg] Cole Celeste DO Work Phone: [facility] Comment on above: 118/86 second BP 11-20-2024 08:32-0400 Systolic blood pressure 136 mm[Hg] Cole Celeste DO Work Phone: [facility] Comment on above: 118/86 second BP 11-06-2024 08:46-0500 Body mass index (BMI) [Ratio] 44.01 kg/m2 Emily TALBERT Work Phone: [facility] 11-06-2024 08:46-0500 Body weight 127.46 kg Emily TALBERT Work Phone: [facility] 11-06-2024 08:46-0500 Diastolic blood pressure 76 mm[Hg] Emily TALBERT Work Phone: [facility] 11-06-2024 08:46-0500 Systolic blood pressure 128 mm[Hg] Emily Lundy PA Work Phone: [facility] 10-22-2024 14:46-0500 Body mass index (BMI) [Ratio] 43.04 kg/m2 Cole Celeste DO Work Phone: [facility] 10-22-2024 14:46-0500 Body weight 124.65 kg Cole Celeste DO Work Phone: [facility] 10-22-2024 14:46-0500 Diastolic blood pressure 70 mm[Hg] Cole Celeste DO Work Phone: [facility] 10-22-2024 14:46-0500 Systolic blood pressure 116 mm[Hg] Cole Celeste DO Work Phone: [facility] 10-08-2024 13:57-0500 Body mass index (BMI) [Ratio] 42.15 kg/m2 Emily Lundy PA Work Phone: [facility] 10-08-2024 13:57-0500 Body weight 122.07 kg Emily Lundy PA Work Phone: [facility] 10-08-2024 13:57-0500 Diastolic blood pressure 82 mm[Hg] Emily Lundy PA Work Phone: [facility] 10-08-2024 13:57-0500 Systolic blood pressure 122 mm[Hg] Emily Lundy PA Work Phone: [facility] 09-10-2024 14:35-0500 Body mass index (BMI) [Ratio] 40.94 kg/m2 Cole Celeste DO Work Phone: [facility] 09-10-2024 14:35-0500 Body weight 118.57 kg Cole Celeste DO Work Phone: [facility] 09-10-2024 14:35-0500 Diastolic blood pressure 76 mm[Hg] Cole Celeste DO Work Phone: [facility] 09-10-2024 14:35-0500 Systolic blood pressure 118 mm[Hg] Cole Celeste DO Work Phone: [facility] 08-08-2024 11:09-0500 Body mass index (BMI) [Ratio] 39.37 kg/m2 Cole Celeste DO Work Phone: [facility] 08-08-2024 11:09-0500 Body weight 114.03 kg Cole Celeste DO Work Phone: [facility] 08-08-2024 11:09-0500 Diastolic blood pressure 72 mm[Hg] Cole Celeste DO Work Phone: [facility] 08-08-2024 11:09-0500 Systolic blood pressure 120 mm[Hg] Cole Celeste DO Work Phone: [facility] 07-10-2024 10:45-0500 Body mass index (BMI) [Ratio] 38.37 kg/m2 Cole Celeste DO Work Phone: [facility] 07-10-2024 10:45-0500 Body weight 111.13 kg Cole Celeste DO Work Phone: [facility] 07-10-2024 10:45-0500 Diastolic blood pressure 74 mm[Hg] Cole Celeste DO Work Phone: [facility] 07-10-2024 10:45-0500 Systolic blood pressure 118 mm[Hg] Cole Celeste DO Work Phone: [facility] 06-07-2024 13:09-0400 Body mass index (BMI) [Ratio] 38.53 kg/m2 Nom Nurse [facility] 06-07-2024 13:09-0400 Body weight 111.58 kg [facility] Nurse [facility] 06-07-2024 13:09-0400 Diastolic blood pressure 72 mm[Hg] [facility] Nurse [facility] 06-07-2024 13:09-0400 Systolic blood pressure 116 mm[Hg] [facility] Nurse [facility] 05-08-2024 11:32-0400 Body height 170.2 cm Cole Celeste DO Work Phone: [facility] 05-08-2024 11:32-0400 Body mass index (BMI) [Ratio] 39.16 kg/m2 Cole Celeste DO Work Phone: [facility] 05-08-2024 11:32-0400 Body weight 113.4 kg Cole Celeste DO Work Phone: [facility] 05-08-2024 11:32-0400 Diastolic blood pressure 80 mm[Hg] Cole Celeste DO Work Phone: [facility] 05-08-2024 11:32-0400 Systolic blood pressure 124 mm[Hg] Cole Celeste DO Work Phone: [facility] 10-06-2023 08:53-0500 Body height 170.2 cm Cole Celeste DO Work Phone: [facility] 10-06-2023 08:53-0500 Body mass index (BMI) [Ratio] 38.28 kg/m2 Cole Celeste DO Work Phone: [facility] 10-06-2023 08:53-0500 Body weight 110.86 kg Cole Celeste DO Work Phone: [facility] 10-06-2023 08:53-0500 Diastolic blood pressure 72 mm[Hg] Cole Celeste DO Work Phone: [facility] 10-06-2023 08:53-0500 Systolic blood pressure 120 mm[Hg] Cole Celeste DO Work Phone: [facility] Encounters Encounter Date Encounter Type Care Provider Facility Start: 12-18-2024 End: 12-18-2024 Bamboo flowsheet Cole Celeste DO Work Phone: [facility] Start: 12-18-2024 End: 12-18-2024 Bamboo flowsheet Cole Celeste DO Work Phone: [facility] Start: 12-18-2024 End: 12-18-2024 Office outpatient visit 15 minutes Cole Celeste DO Work Phone: [facility] Comment on above: Third trimester preg maicol; 36 weeks gestation of Start: 12-17-2024 End: 12-17-2024 Clinisync Result Encounter Cole Celeste DO Work Phone: [facility] External Department Unsolicited Start: 12-17-2024 End: 12-17-2024 Clinisync Result Encounter Cole Celeste DO Work Phone: [facility] External Department Unsolicited Start: 12-11-2024 End: 12-11-2024 Bamboo flowsheet Cole Celeste DO Work Phone: [facility] Start: 12-11-2024 End: 12-11-2024 Bamboo flowsheet Cole Celeste DO Work Phone: [facility] Start: 12-11-2024 End: 12-11-2024 Office [...] Start: 12-03-2024 End: 12-03-2024 Clinisync Result Encounter Cloe Celeste DO Work Phone: [facility] External Department Unsolicited Start: 12-03-2024 End: 12-03-2024 Clinisync Result Encounter Cole Celeste DO Work Phone: [facility] External Department Unsolicited Start: 12-03-2024 End: 12-03-2024 ambulatory [facility] Start: 11-26-2024 End: 11-26-2024 Clinisync Result Encounter Cole Celeste DO Work Phone: [facility] External Department Unsolicited Start: 11-26-2024 End: 11-26-2024 Clinisync Result Encounter Cole Celeste DO Work Phone: [facility] External Department Unsolicited Start: 11-22-2024 End: 11-22-2024 Office consultation new/estab patient 60 min Bandar Darden MD Work Phone: [facility] Comment on above: Polyhydramnios affec ting in third trimester (Primary Dx); PCOS (polycystic ovarian syndrome) Start: 11-22-2024 End: 11-22-2024 ambulatory [facility] Start: 11-20-2024 End: 11-20-2024 [...] EMILY LUNDY Not Available Start: 10-25-2024 ambulatory Kulwatn Jason Facility: [facility] Start: 10-24-2024 End: 10-24-2024 Clinisync Result Encounter Emily TLABERT Work Phone: [facility] External Department Unsolicited Start: 10-24-2024 End: 10-24-2024 Clinisync Result Encounter Emily TALBERT Work Phone: [facility] External Department Unsolicited Start: 10-24-2024 End: 10-24-2024 ambulatory [facility] Start: 10-22-2024 End: 10-22-2024 Office [...] [facility] Start: 10-18-2024 End: 10-18-2024 ambulatory [facility] Start: 10-15-2024 End: 10-15-2024 Chart abstracting Scanning Provider External [facility] Start: 10-08-2024 End: 10-08-2024 Bamboo flowsheet Emily [...] EMILY LUNDY Not Available Start: 10-06-2024 ambulatory [facility] Facility: [facility] Start: 09-24-2024 ambulatory [facility] Facility: [facility] Start: 09-10-2024 [...] End: 08-15-2024 External Result Encounter Emily Lundy PA Work Phone: [facility] External Department Unsolicited Start: 08-08-2024 End: 08-08-2024 Office outpatient visit 15 minutes Cole Celeste DO Work Phone: [facility] Comment on above: Well woman exam with routine gynecological exam; Second trimester ; 17 weeks gestation of ; Vaginal discharge; STD exposure; Screening, , for anatomic survey; Elevated glucose tolerance test Start: 08-08-2024 End: 08-08-2024 Patient encounter procedure Cole Celeste DO Work Phone: [facility] Work Phone: Start: 08-08-2024 End: 08-08-2024 ambulatory COLE CELESTE Not Available Start: 07-31-2024 End: 07-31-2024 Clinisync Result Encounter Cole Celeste DO Work Phone: [facility] External Department Unsolicited Start: 07-31-2024 End: 07-31-2024 Clinisync Result Encounter Cole Celeset DO Work Phone: [facility] External Department Unsolicited Start: 07-10-2024 End: 07-10-2024 Bamboo flowsheet Cole Celeste DO Work Phone: [facility] Start: 07-10-2024 End: 07-10-2024 Bamboo flowsheet Cole Celeste DO Work Phone: [facility] Start: 07-10-2024 End: 07-10-2024 Office outpatient visit 15 minutes Cole Celeste DO Work Phone: [facility] Comment on above: Second [...] GA: 8w6d Start: 06-01-2024 End: 06-01-2024 ambulatory [facility] Facility:[facility] Start: 05-28-2024 End: 05-28-2024 Emergency department patient visit [facility] Facility:[facility] Start: 05-28-2024 End: 05-28-2024 ambulatory [facility] Facility:[facility] Start: 05-08-2024 End: 05-08-2024 [...] encounter procedure Kenya Richter DDS Work Phone: [facility] Comment on above: Abnormal tooth erupt ion (Primary Dx); Impacted third molar tooth Start: 04-24-2024 ambulatory KENYA RICHTER Facili ty:[facility] Start: 03-14-2024 End: 03-14-2024 ambulatory [facility] Facility:[facility] Start: 02-14-2024 End: 02-14-2024 ambulatory [facility] Facility:[facility] Start: 01-17-2024 End: 01-17-2024 ambulatory Radha Gomez Facility:[facility] Start: 12-16-2023 End: 12-16-2023 ambulatory [facility] Facility:[facility] Start: 10-06-2023 End: 10-06-2023 Office outpatient new 20 minutes Cole Celeste DO Work Phone: [facility] Comment on above: Irregular periods/me nstrual cycles; PCOS (polycystic ovarian syndrome); Insulin resistance Procedures Date Procedure Procedure Detail Performing Clinician Start: 12-18-2024 Urnls dip stick/tabl et rgnt non-auto w/o micrscp Cole Celeste DO Work Phone: Start: 12-17-2024 US OB BPP W NON-STRESS Cole Celeste DO Work Phone: Start: 12-11-2024 Urnls dip stick/tabl et rgnt [...] 2) Shingles (RZV) Vaccine (1 of 2) [facility] Start: 11-18-2033 DTaP,Tdap and Td Vaccines (9 - Td or Tdap) DTaP,Tdap and Td Vaccines (9 - Td or Tdap) [facility] Start: 08-08-2027 Screening for malign ant neoplasm of cervix Pap Smear [facility] Start: 11-22-2025 Adult BMI Screening Adult BMI Screen ing [facility] Start: 11-22-2025 Tobacco Screening Tobacco Screening [facility] Start: 05-06-2025 Influenza vaccination Influenz a Vaccine (Season Ended) [facility] Start: 12-26-2024 End: 12-26-2024 Professional / ancillary services management 12/26/2024 11:30 AM EDT Ancillary Procedure [facility] [address] [place] [id number] [facility] Start: 12-25-2024 End: 12-25-2024 Patient encounter procedure 12/25/2024 1:30 PM EDT Routine [facility] [address] [place] [address] Cole Alonso, [address] [place], [place] [address] [facility] Start: 12-18-2024 End: 12-18-2025 CULTURE, GROUP B STREP WITH SUSCEPTIBLITY CULTURE, GROUP B STREP WITH SUSCEPTIBLITY Lab Routine Third trimester Expected: 12/18/2024, Expires: 12/18/2025 [facility] Work Phone: Comment on above: Expected: 12/18/2024 , Expires: 12/18/2025 Start: 12-18-2024 End: 12-18-2024 Patient encounter procedure [facility] Comment on above: Arrived Start: 12-11-2024 End: 12-11-2024 Patient encounter procedure [facility] Comment on above: Arrived Start: 12-04-2024 End: 12-04-2025 US for US OB follow up transabdominal approach Imaging Routine Gestational diabetes mellitus (GDM) affecting Expected: 12/04/2024, Expires: 12/04/2025 [facility] Work Phone: Comment on above: Expected: 12/04/2024 , Expires: 12/04/2025 Start: 12-04-2024 End: 12-04-2024 Patient encounter procedure [facility] Comment on above: Arrived Start: 11-20-2024 End: 11-20-2024 Patient encounter procedure 11/20/2024 8:30 AM EDT Routine [facility] [address] [place] [id number] Cole Alonso DO [address] [place] [address] [facility] Start: 11-06-2024 End: 11-06-2025 Measurement of glucose 1 hour after glucose challenge for glucose tolerance test Glucose tolerance, 1 hour Lab Routine Diabetes mellitus screening Expected: 11/06/2024 (Approximate), Expires: 11/06/2025 [facility] Comment on above: Expected: 11/06/2024 [...] unspecified fetus Expected: 10/22/2024 (Approximate), Expires: 10/22/2025 [facility] Work Phone: Comment on above: Expected: 10/22/2024 (Approximate), Expires: 10/22/2025 Start: 10-18-2024 End: 10-18-2024 Patient encounter procedure 10/18/2024 1:00 PM EST Appointment [facility] [address] [place] [address] [facility] Start: 10-08-2024 End: 10-08-2025 CBC panel - [...] mellitus screening Expected: 10/08/2024 (Approximate), Expires: 10/08/2025 [facility] Comment on above: Expected: 10/08/2024 (Approximate), Expires: 10/08/2025 Start: 10-08-2024 End: 10-08-2024 Patient encounter procedure [facility] Comment on above: Arrived Start: 09-10-2024 End: 09-10-2025 Drugs of abuse panel - Urine by Screen method Rapid drug screen, urine Lab Routine , unspecified gestational age Encounter for supervision of normal first in first trimester Expected: 09/10/2024 (Approximate), Expires: 09/10/2025 [facility] Work Phone: Comment on above: Expected: 09/10/2024 (Approximate), Expires: 09/10/2025 Start: 09-10-2024 End: 09-10-2024 Patient encounter procedure 09/10/2024 2:00 PM EST Routine [facility] [address] [place] [phone] Cole Alonso, DO [address] [place] [address] [facility] Start: 09-10-2024 End: 09-10-2024 Professional / ancillary services management 09/10/2024 1:00 PM EST Ancillary Procedure [facility] [address] [place] [phone] [facility] Start: 08-08-2024 End: 02-06-2025 Alpha fetoprotein, maternal Alpha fetoprotein, maternal Lab Routine Second trimester 17 weeks gestation of Expected: 08/08/2024 (Approximate), Expires: 02/06/2025 [facility] Comment on above: Expected: 08/08/2024 (Approximate), Expires: 02/06/2025 Start: 08-08-2024 End: 08-08-2025 Measurement of glucose 3 hours after glucose challenge for glucose tolerance test Glucose tolerance, 3 hours Lab Routine Elevated glucose tolerance test Expected: 08/08/2024 (Approximate), Expires: 08/08/2025 [facility] Comment on above: Expected: 08/08/2024 (Approximate), Expires: 08/08/2025 Start: 08-08-2024 End: 08-08-2025 US for US OB ANATOMY SINGLE W US OB CERVICAL LENGTH Imaging Routine Screening, , for anatomic survey Expected: 08/08/2024 (Approximate), Expires: 08/08/2025 [facility] Comment on above: Expected: 08/08/2024 (Approximate), Expires: 08/08/2025 Start: 08-08-2024 End: 08-08-2024 Patient encounter procedure [facility] Comment on above: Arrived Start: 07-10-2024 End: 07-10-2025 Measurement of glucose 1 hour after glucose challenge for glucose tolerance test Glucose tolerance, 1 hour Lab Routine Diabetes mellitus screening Expected: 07/10/2024 (Approximate), Expires: 07/10/2025 [facility] Work Phone: Comment on above: Expected: 07/10/2024 (Approximate), Expires: 07/10/2025 Start: 07-10-2024 End: 07-10-2024 Patient encounter procedure [facility] Comment on above: Arrived Start: 07-04-2024 End: 07-04-2024 Patient encounter procedure 07/04/2024 3:00 PM EDT Office Visit [facility] [address] [place] [id number] Kenya Richter, DDS [address] [place] [address] [facility] Start: 06-07-2024 End: 06-07-2025 ABO/Rh ABO/Rh Lab Routine Missed menses , unspecified gestational age Expected: 06/07/2024 (Approximate), Expires: 06/07/2025 [facility] Comment on above: Expected: 06/07/2024 (Approximate), Expires: 06/07/2025 Start: 06-07-2024 End: 06-07-2025 Blood type and Indirect antibody screen panel - Blood Type and screen Lab Routine Missed menses , unspecified gestational age Expected: 06/07/2024 (Approximate), Expires: 06/07/2025 [facility] Work Phone: Comment on above: Expected: 06/07/2024 (Approximate), Expires: 06/07/2025 Start: 06-07-2024 End: 06-07-2025 Drugs of abuse panel - Urine by Screen method Rapid drug screen, urine Lab Routine , unspecified gestational age Encounter for supervision of normal first in first trimester Expected: 06/07/2024 (Approximate), Expires: 06/07/2025 [facility] Comment on above: Expected: 06/07/2024 (Approximate), Expires: 06/07/2025 Start: 06-07-2024 End: 06-07-2025 US Pelvis transvaginal US OB transvaginal Imaging Routine Missed menses Expected: 06/07/2024 (Approximate), Expires: 06/07/2025 [facility] Comment on above: Expected: 06/07/2024 (Approximate), Expires: 06/07/2025 Start: 06-07-2024 End: 06-07-2024 ambulatory 06/07/2024 1:00 PM EDT Initial [facility] [address] [place] [address] [facility] Start: 06-07-2024 End: 06-07-2024 Professional / ancillary services management 06/07/2024 12:30 PM EDT Ancillary Procedure [facility] [address] [place] [address] [facility] Start: 06-05-2024 Influenza vaccination Influenza Vacc ine (#1) [facility] Start: 05-08-2024 End: 05-08-2024 Patient encounter procedure 05/08/2024 11:20 AM EDT Office Visit [facility] [address] [place] [address] Cole Alonso, DO [address] [place] [address] Arrived [facility] Comment on above: Arrived Start: 05-06-2024 Influenza vaccination [facility] Start: 11-03-2023 End: 11-03-2023 Patient encounter procedure 11/03/2023 8:30 AM EST Office Visit [facility] [address] [place] [address] Cole Alonso, DO [facility] [place] [address] [facility] Start: 10-17-2023 End: 10-17-2023 Professional / ancillary services management 10/17/2023 8:30 AM EST Ancillary Procedure [facility] [address] [place] [phone] [facility] Start: 05-06-2023 COVID-19 Vaccine ( season) COVID-19 Vaccine () [facility] Start: 2019 Screening for malign ant neoplasm of cervix Pap Smear [facility] Start: 2017 DTaP,Tdap and Td Vaccines (1 - Tdap) DTaP,Tdap and Td Vaccines (1 - Tdap) [facility] Start: 2017 Hepatitis A (HAV) Vaccine (optional start 19+ years) Hepatitis A (HAV) Vaccine (optional start 19+ years) [facility] Start: 2017 Hepatitis B vaccination Hepati tis B (HBV) Vaccine (1 of 3 - 19+ 3-dose series) [facility] Start: 2016 Adult BMI Follow Up Plan Adult BMI F ollow Up Plan [facility] Start: 2016 Adult BMI Screening Adult BMI Screen ing [facility] Start: 2016 Hepatitis C screening Hepatitis C An tibody [facility] Start: 2016 Tetanus + diphtheria + acellular pertussis vaccine (product) Tdap Booster [facility] Start: 2013 Vaccination for volodymyr n papillomavirus HPV Vaccine (1 - 3-dose series) [facility] Start: 2010 Depression Screening Depression Scre ening [facility] Start: 2010 Tobacco Screening Tobacco Screening [facility] Antimullerian hormon e (AMH) Antimullerian hormone (AMH) Lab Routine Irregular periods/menstrual cycles Ordered: 10/06/2023 [facility] Comment on above: Ordered: 10/06/2023 Bacteria identified in Urine by Culture Urine culture Microbiology Routine Missed menses Ordered: 06/07/2024 [facility] Comment on above: Ordered: 06/07/2024 CBC W Auto Different ial panel - Blood CBC and differential Lab Routine PCOS (polycystic ovarian syndrome) Ordered: 10/06/2023 [facility] Comment on above: Ordered: 10/06/2023 CBC W Auto Different ial panel - Blood CBC and differential Lab Routine Missed menses , unspecified gestational age Ordered: 06/07/2024 [facility] Comment on above: Ordered: 06/07/2024 CHLAMYDIA TRACHOMATI S (GENITO/STI) CHLAMYDIA TRACHOMATIS (GENITO/STI) Lab Routine STD exposure Ordered: 08/08/2024 [facility] Comment on above: Ordered: 08/08/2024 Cytology Cervical or vaginal smear or scraping study Pap Smear Pathology and Cytology Routine Well woman exam with routine gynecological exam Ordered: 08/08/2024 [facility] Comment on above: Ordered: 08/08/2024 DHEA DHEA Lab Routine PCOS (polycystic ovarian syndrome) Ordered: 10/06/2023 [facility] Comment on above: Ordered: 10/06/2023 DHEA-sulfate DHEA-sulfate Lab Routine PCOS (polycystic ovarian syndrome) Ordered: 10/06/2023 [facility] Comment on above: Ordered: 10/06/2023 Follicle stimulating hormone Follicle stimulating hormone Lab Routine PCOS (polycystic ovarian syndrome) Ordered: 10/06/2023 [facility] Comment on above: Ordered: 10/06/2023 hCG, quantitative, hCG, quantitative, Lab Routine PCOS (polycystic ovarian syndrome) Ordered: 10/06/2023 [facility] Work Phone: Comment on above: Ordered: 10/06/2023 Hemoglobin A1c measurement Hemoglobin A1c Lab Routine Irregular periods/menstrual cycles Ordered: 10/06/2023 [facility] Comment on above: Ordered: 10/06/2023 Hemoglobin A1c/Hemoglobin.total in Blood Hemoglobin A1c Lab Routine Missed menses , unspecified gestational age Ordered: 06/07/2024 [facility] Comment on above: Ordered: 06/07/2024 Hepatitis B virus surface Ag [Presence] in Serum or Plasma by Immunoassay Hepatitis B surface antigen Lab Routine Missed menses , unspecified gestational age Ordered: 06/07/2024 [facility] Comment on above: Ordered: 06/07/2024 Hepatitis C virus Ab [Presence] in Serum or Plasma by Immunoassay Hepatitis C antibody Lab Routine Missed menses , unspecified gestational age Ordered: 06/07/2024 [facility] Comment on above: Ordered: 06/07/2024 HIV-1/HIV-2 antigen/antibody combination immunoassay HIV-1 and HIV-2 antibodies Lab Routine Missed menses , unspecified gestational age Ordered: 06/07/2024 [facility] Comment on above: Ordered: 06/07/2024 Luteinizing hormone Luteinizing hormone Lab Routine PCOS (polycystic ovarian syndrome) Ordered: 10/06/2023 [facility] Comment on above: Ordered: 10/06/2023 Neisseria gonorrhoea e DNA [Presence] in Unspecified specimen by ISHA with probe detection Neisseria gonorrhea DNA probe, direct Lab Routine STD exposure Ordered: 08/08/2024 [facility] Comment on above: Ordered: 08/08/2024 Reagin Ab [Presence] in Serum by RPR RPR Lab Routine Missed menses , unspecified gestational age Ordered: 06/07/2024 [facility] Comment on above: Ordered: 06/07/2024 Rubella antibody, IgG Rubella an tibody, IgG Lab Routine Missed menses , unspecified gestational age Ordered: 06/07/2024 [facility] Comment on above: Ordered: 06/07/2024 SURESWAB(R) ADVANCED VAGINITIS PLUS, TMA SURESWAB(R) ADVANCED VAGINITIS PLUS, TMA Pathology and Cytology Routine Vaginal discharge Ordered: 08/08/2024 [facility] Work Phone: Comment on above: Ordered: 08/08/2024 Thyrotropin [Units/volume] in Serum or Plasma TSH Lab Routine PCOS (polycystic ovarian syndrome) Ordered: 10/06/2023 [facility] Comment on above: Ordered: 10/06/2023 Thyroxine (T4) free [Mass/volume] in Serum or Plasma T4, free Lab Routine PCOS (polycystic ovarian syndrome) Ordered: 10/06/2023 [facility] Comment on above: Ordered: 10/06/2023 US for US PELVIS-TRANS VAG IF INDICATED Imaging Routine PCOS (polycystic ovarian syndrome) Ordered: 10/06/2023 [facility] Comment on above: Ordered: 10/06/2023 Immunizations Immunization Date Immunization Notes Care Provider Shaina marley 06-12-2020 influenza virus vacc ine, unspecified formulation Cole Alonso DO Work Phone: [facility] Payers Date Payer Category Payer Blue [employer]ie juan [place] [id number] 2022 Medicaid [id number]. [id number] 2022 Medicaid [id number] 1998 Unknown [id number] 2.16.840.1.934329.3.579.2. 732 1998 Unknown [id number] 2.16.840.1.385151.3.579.2. 1285 1998 Unknown [id number] 2.16.840.1.320872.3.579.2. 1285 1998 Unknown [id number] 2.16.840.1.138639.3.579.2. 1285 1998 Unknown [id number] 2.16.840.1.744539.3.579.2. 1998 Unknown [id number] 2.16.840.1.160110.3.579.2. 1998 Unknown [id number] 2.16.840.1.954799.3.579.2. 1998 Unknown [id number] 2.16.840.1.085374.3.579.2. 8 1998 Unknown [id number] 2.16.840.1.350434.3.579.2. 1998 Unknown [id number] 2.16.840.1.976431.3.579.2. 8 1998 Unknown [id number] 2.16.840.1.366385.3.579.2. 1998 Unknown [id number] 2.16.840.1.274281.3.579.2. 1998 Unknown [id number] 2.16.840.1.632306.3.579.2. 1998 Unknown [id number] 2.16.840.1.045761.3.579.2. 718 1998 Unknown [id number] 2.16.840.1.865766.3.579.2. 1998 Unknown [id number] 2.16.840.1.585161.3.579.2. 1258 1998 Unknown [id number] 2.16.840.1.743334.3.579.2. 1258 1998 Unknown [id number] 2.16.840.1.302696.3.579.2. 1258 1998 Unknown [id number] 2.16.840.1.212105.3.579.2. 1258 1998 Unknown [id number] 2.16.840.1.832333.3.579.2. 1258 1998 Unknown [id number] 2.16.840.1.280467.3.579.2. 1258 1998 Unknown [id number] 2.16.840.1.956381.3.579.2. 1258 1998 Unknown [id number] 2.16.840.1.634693.3.579.2. 1258 1998 Unknown [id number] 2.16.840.1.247013.3.579.2. 1258 1998 Unknown [id number] 2.16.840.1.148151.3.579.2. 1258 1998 Unknown [id number] 2.16.840.1.843617.3.579.2. 1258 1998 Unknown [id number] 2.16.840.1.294407.3.579.2. 9 Social History Date Type Detail Facility Start: 09-15-2023 End: 05-08-2024 Tobacco smoking status [facility] Ex-smoker [facility] History of tobacco use Current smoker [facility] History of tobacco use Cigarette Smoker [facility] Start: 10-06-2023 End: 12-11-2024 Alcohol intake Lifetime non-drinker (finding) [facility] Start: 09-15-2023 End: 05-08-2024 History of Social function [facility] Start: 09-15-2023 End: 05-08-2024 Tobacco use panel [facility] Start: 09-15-2023 Alcohol Comment caffeine: 1-2 cups per day [facility] Start: 2000 Sex Assigned At Not on file [facility] Tobacco smoking stat [facility] Tobacco smoking consumption unknown [facility] Start: 05-08-2024 End: 10-15-2024 Tobacco use and exposure Smokeless tobacco non-user [facility] Start: 04-20-2024 [facility] Start: 10-15-2024 End: 11-22-2024 Alcoholic beverage intake Ex-drinker (finding) [facility] Start: 12-03-2019 Sex Female (finding) [facility] Medical Equipment Procedure Code Equipment Code Equipment Origin al Text Equipment Identifier Dates Check blood gluc ose using test strips fasting and 1 hour after each meal. Four to 5 times a day per insurance preferences [id number] Start: 11-22-2024 Use it to check fingerstick blood glucose 4 times a day fasting and 1 hour after each meal. Dispensed per insurance preference [id number] Start: 11-22-2024 Use as instructed [id number] Start: 12-04-2024 Use as instructed [id number] Start: 12-12-2024 Clinical Notes 10-06-2023 to 12-18-2024 Bailey Xavier LPN - 12/18/2024 1:30 PM Lakeshia Xavier LPN - 12/11/2024 1:30 PM NITISH Negrete - 12/04/2024 8:40 AM Brice Aranda CMA - 11/22/2024 11:30 AM EDT Note Date & Type Note Facility 12-18-2024 History of Present illness Narrative Reason for Appointment: Patient ID: Sherly Astudillo is a 24 y.o. female who presents for Routine Visit Patient presents today for Return OB appointment. MEDICATIONS Current Outpatient Medications Medication Instructions Alcohol Swabs (Alcohol Prep Pad) 70 % pads 1 Pad, Topical, Daily, Use four times daily to check FSBS. aspirin 81 mg, Oral, Daily RT insulin [...] Constitutional: Appearance: Normal appearance. She is well-developed. Genitourinary: Vulva normal. Cardiovascular: Rate and Rhythm: Normal rate and [...] nursing note reviewed. Exam conducted with a remelt operator present. Vitals: Estimated body mass index is 45.53 kg/m as calculated from the following: Height as of 05/08/24: 5' 7 . Weight as of 12/11/24: 290 lb 11.2 oz. BP: Patient's last menstrual period was 04/06/2024. ASSESSMENT & PLAN ICD-10-CM 1. Third trimester Z34.93 POCT urinalysis dipstick manually resulted CULTURE, GROUP B STREP WITH SUSCEPTIBLITY CULTURE, GROUP B STREP WITH SUSCEPTIBLITY CANCELED: CULTURE, GROUP B STREP WITH SUSCEPTIBLITY 2. 36 weeks gestation of Z3A.36 Patient is doing well but has complaints of being tired and having maternal discomfort due to . Patient verbalized frequent movement and was instructed to perform kick counts three times per day. labor precautions were given, LARC consent was signed/declined, and GBS was obtained. Cervical check was performed and patient is 1cm dilated. Pt previous vaginal delivery- baby was stuck and baby swallowed meconium and was in NICU for two weeks. Discussed trial of labor vs - pt will be scheduled for c section on 12/28/24 Orders Placed This Encounter Procedures CULTURE, GROUP B STREP WITH SUSCEPTIBLITY POCT urinalysis dipstick manually resulted Follow Up: Patient is to return to office in 1 week for routine OB appointment Documented by Bailey Xavier LPN on behalf of: Cole Alonso DO documented in this encounter [facility] 12-11-2024 History of Present illness Narrative Reason [...] nursing note reviewed. Exam conducted with a remelt operator present. Vitals: Estimated body mass index [...] Cole Alonso DO documented in this encounter [facility] 12-04-2024 History of Present illness [...] week for routine OB appointment. Documented by NITSIH Rojas on behalf of: NITISH Rojas documented in this encounter [facility] 12-03-2024 Note [facility] Note Reason for cardiology [...] Rfl: OneTouch Delica Plus Lancet 30 gauge [facility], , Disp: , Rfl: OneTouch Ultra Test strip, , Disp: , Rfl: OneTouch Ultra2 Meter [facility], , Disp: , Rfl: 0-VITA-ORXLR ACID-OM3 ORAL, Take by mouth., Disp: , [...] she was starte (more content not included)... [facility] 11-22-2024 History of Present illness Narrative Headache/epigastric [...] no Have you been seen here at [facility] in a previous ? No Recent ER visits or hospitalizations? No Bring blood sugar log or meter with you today? (Please bring them with you for every visit at [facility]) no Flu vaccine (Jul-November)? No Any [...] and the other consultants, we search on [employer] and all the available care everywhere epic I did review all the imaging studies of the patient available on EMR, ordered by the primary care physician and the other chain sales consultant HABITS: Patient activity no restrictions, [...] high, please refer the patient back to [facility] for formal diabetes management 5. 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 Patient does not have appointment scheduled with us. Thank you for allowing me to participate in Sherly Astudillo . If there any questions please do not hesitate to contact us. Sincerely, AHMET SOLER MD Video Visit via Real-time Synchronous Audiovisual Provider Location: [facility]- [facility]ICINE AT [address] [id number] Patient Location: Other Patient Location Summer Law Clerk: None Video Visit Consent Statement: I discussed [...] that there are some limitations compared to yofv-lt-ichh evaluations. We elected to proceed. documented in this encounter [facility] 11-20-2024 History of Present illness Narrative Reason [...] nursing note reviewed. Exam conducted with a remelt operator present. Vitals: Estimated body mass index [...] three times a day. Pt return to [facility] on the for follow up anatomy scan. Pt second BP in office was 118/86. No orders of the defined types were placed in this encounter. Follow Up: Patient is to return to office in 2 week for routine OB appointment. Documented by Bailey Xavier LPN on behalf of: Cole Alonso DO documented in this encounter [facility] 11-06-2024 History of Present illness [...] of: NITISH Rojas documented in this encounter [facility] 10-24-2024 Note [facility] Note Reason for cardiology [...] mouth in the morning., Disp: , Rfl: 0-TLRU-IYYKC ACID-OM3 ORAL, Take by mouth., Disp: , [...] nursing note reviewed. Exam conducted with a remelt operator present. Vitals: Estimated body mass index [...] NST/BPP to have started. Orders sent to [facility] Scheduling and [facility]. Hospital to reach out to patient to schedule. Patient to return to clinic in 2 weeks for routine OIB appointment. Documented by Rose Latham LPN on behalf of: Cole Alonso DO documented in this encounter [facility] 10-08-2024 History of Present illness Narrative Reason for Appointment: Patient ID: Sherly Astudillo is a 24 y.o. female who presents for Routine Visit Patient presents today for Return OB appointment. MEDICATIONS Current Outpatient Medications Medication Instructions clotrimazole (Mycelex) 10 MG jacob 1 lozenge(s), Oral, 5x/Day, x 10 day(s), # 50 lozenge(s), 0 Refill(s), 10/16/24 8:59:00 AM MITTEN STITCHER, Pharmacy: [facility] [id number], 1 lozenge(s) Oral 5x/Day,x10 day(s), 170.18, cm, [...] of: NITISH Rojas documented in this encounter [facility] 10-06-2024 Note Patient Education Ma [...] Follow these instructions at home: ? Take upgr-uwy-yqdpygb and prescription medicines only as told by [...] provider. Document Revised: 11/30/2021 Document Reviewed: 11/30/2021 [employer] Patient Education ? 2023 [employer]. Infectious Disease Oral Thrush, Adult Oral thrush, [...] these instructions at home: Medicines ? Take voih-pby-qpmxbzg and prescription medicines only as told by [...] and water are not available, use hand medical unit secretary. ? Do not touch your eyes, nose, [...] nursing note reviewed. Exam conducted with a remelt operator present. Vitals: Estimated body mass index [...] Cole Alonso DO documented in this encounter [facility] 08-08-2024 History of Present illness [...] Name Age of Onset Leukemia Mother Magnolia Jcakson as a child Endometriosis Mother Magnolia Renetta [...] Cole Alonso DO documented in this encounter [facility] 07-10-2024 History of Present illness [...] nursing note reviewed. Exam conducted with a remelt operator present. Vitals: Estimated body mass index [...] or undercooked meat, and stay away from [facility]. Patient has been consulted regarding any [...] Cole Alonso DO documented in this encounter [facility] 07-05-2024 Note Patient Education Ma [...] and use condoms. General instructions ? Take awgx-zis-krsjagk and prescription medicines only as told by [...] provider. Document Revised: 02/19/2021 Document Reviewed: 02/19/2021 [employer] Patient Education ? 2023 [employer]. [facility] 06-07-2024 History of Present [...] done at the same time at [facility] at 10 weeks . Pt desires zofran due to nausea in this . Follow Up: Patient is to have labs drawn at directed and return to office for initial OB appointment with provider. Patient may call office as needed with any concerns or questions. Nurse Visit Completed by: Bernadette Reeder MA documented in this encounter [facility] 05-28-2024 Note Education Materials Orthopedics [...] not too tight. General instructions ? Take ihkk-kmi-umrzyuo and prescription medicines only as told by [...] provider. Document Revised: 11/09/2021 Document Reviewed: 11/09/2021 [employer] Patient Education ? 2023 [employer] Sciatica Sciatica is pain, weakness, tingling, [...] Cole Alonso DO documented in this encounter [facility] 04-24-2024 History of Present illness Narrative Images from the original note were not included. documented in this encounter [facility] 10-06-2023 History of Present illness Narrative Reason [...] nursing note reviewed. Exam conducted with a remelt operator present. Vitals: Estimated body mass index [...] PCOS/insulin resistance and medication was sent to [facility] in [place]. Documented by Rose Latham LPN on behalf [...] syndrome) Polycystic ovaries [facility] Third trimester state, incidental 32 weeks gestation of [facility] Third trimester state, incidental 34 weeks gestation of Gestational diabetes mellitus (GDM) affecting Gestational diabetes mellitus (GDM), antepartum, gestational diabetes method of control unspecified [facility] Diagnosis Third trimester state, incidental 35 weeks gestation of [facility] Diagnosis Third trimester state, incidental 36 weeks gestation of documented in this [facility]ructionsNot on filedocumented in this encounterPro[facility] SystemInstructionsNot on filedocumented in this encounterPro[facility] Summary Purpose Family History No [...] third molar tooth Kenya Richter, DDS [address] [place] [address] Referral ID Status Reason Start Date Expiration Date V isits Requested Visits Authorized [id number] Pending Review 04/24/2024 04/24/2025 1 1 Scheduling [...] your procedure, you will be contacted with uvz-sz-uayyazi costs or next steps. All self-pay payments [...] the procedure: You also MUST have a utility driver/escort >18yrs old present to take you [...] section and content) DATE CREATED AUTHOR 01/08/2022 [facility] DATE CREATED AUTHOR AUTHOR'S ORGANIZ ATION 09/23/2024 [facility] DATE CREATED AUTHOR AUTHOR'S ORGANIZ ATION 11/24/2024 [facility] DATE CREATED AUTHOR AUTHOR'S ORGANIZ ATION 11/24/2024 [facility] DATE CREATED AUTHOR AUTHOR'S ORGANIZ ATION 12/11/[address] [facility] DATE CREATED AUTHOR AUTHOR'S ORGANIZ ATION 12/12/2024 [facility] DATE CREATED AUTHOR AUTHOR'S ORGANIZ ATION 12/12/2024 [facility] EPIC Reason for Visit (unrecogniz ed section and content) Reason Comments Discuss cycles Reason Comments Amenorrhea Reason Comments Routine Visit Reason Comments Well Women Visit Routine Visit STI Screening Reason Comments Abdominal Pain Reason Comments polyhydramnios Reason Comments Routine Visit Care Teams (unrecognized sec tion and content) Wild Animal Caretaker Relationship Specialty Start Date End Date Radha Gomez MD [address] [place] [phone] PCP - General Pediatrics 10/06/23 Wild Animal Caretaker Relationship Specialty Start Date End Date Radha Gomez MD [address] [place] [phone] PCP - General Pediatrics 10/06/23 Wild Animal Caretaker Relationship Specialty Start Date End Date Radha Gomez MD [address] [place] [phone] PCP - General Pediatrics 10/06/23 Wild Animal Caretaker Relationship Specialty Start Date End Date Radha Gomez MD [address] [place] [phone] PCP - General Pediatrics 10/06/23 Wild Animal Caretaker Relationship Specialty Start Date End Date Radha Gomez MD [address] [place] [phone] PCP - General Pediatrics 10/06/23 Wild Animal Caretaker Relationship Specialty Start Date End Date Radha Gomez MD [address] [place] [phone] PCP - General Pediatrics 10/06/23 Wild Animal Caretaker Relationship Specialty Start Date End Date Radha Gomez MD [address] [place] [address] [phone] PCP - General Pediatrics 10/06/23 Wild Animal Caretaker Relationship Specialty Start Date End Date Radha Gomez MD [address] [place] [address] [phone] PCP - General Pediatrics 10/06/23 Wild Animal Caretaker Relationship Specialty Start Date End Date Radha Gomez MD [address] [place] [phone] PCP - General Pediatrics 10/06/23 Wild Animal Caretaker Relationship Specialty Start Date End Date Radha Gomez MD [address] [place] [phone] PCP - General Pediatrics 10/06/23 Wild Animal Caretaker Relationship Specialty Start Date End Date Radha Gomez MD [address] [place] [phone] PCP - General Pediatrics 10/06/23 Wild Animal Caretaker Relationship Specialty Start Date End Date Radha Gomez MD [address] [place] [phone] PCP - General Pediatrics 10/06/23 Wild Animal Caretaker Relationship Specialty Start Date End Date Radha Gomez MD [address] [place] [address] [phone] PCP - General Pediatrics 10/06/23 Wild Animal Caretaker Relationship Specialty Start Date End Date Radha Gomez MD [address] [place] [address] [phone] PCP - General Pediatrics 10/06/23 Wild Animal Caretaker Relationship Specialty Start Date End Date Radha Gomez MD [address] [place] [phone] PCP - General Pediatrics 10/06/23 Wild Animal Caretaker Relationship Specialty Start Date End Date Radha Gomez MD [address] [place] [phone] PCP - General Pediatrics 10/06/23 FOR RECORDS [...] BE BASED ON THE PRIMARY CLINICAL RECORDS. [facility] [employer] [facility]. provides no warranty or guarantee of the accuracy or completeness of information in this document.
== END 2024-12-18 19:40 | disposition home or self-care (01) ==
LOC: LAB 19:39
PROVIDERS: PCP Family Medicine; Visit Provider Obstetrics & Gynecology
DX: Z34.93 Encounter for supervision of normal pregnancy, unspecified, third trimester (principal)
CPT/HCPCS: 36415; 87081

== ENCOUNTER 2024-12-20 09:59 | Outpatient (OUT) | payer MEDICAID, SELFPAY ==
--- OUTSIDE RECORDS SUMMARY | 2024-12-20 10:03 | XMS_ITS | CCD ---
Author Organization [facility] Care Team Providers Care Dot Etcher Apprentice Name Role Phone Radha Mendoza MD Primary Care Provider Unavailable Primary Care Provider UnavailKENYA Gonzales Attending Unavailable PROVIDER, UNKNOWN Admitting Unavailable Unavailable Primary Care Provider Unavailbety e CELESTE, COLE R Referring Unavailable CELESTE, COLE R Referring Unavailable CELESTE, COLE R Referring Unavailable AHMET SOLER Attending Unavailable ANGEL LUIS MADSEN Attending Unavailable ANGEL LUIS MADSEN Attending Unavailable Radha Mendoza Primary Care Unavailable Cheung, Evonne L Admitting Unavailable Cheung, Evonne L Attending Unavailable Radha Mendoza Primary Care Unavailable Weininger, Larissa Y Admitting Unavailable Weininger, Larissa Y Attending Unavailable Radha Mendoza Primary Care Unavailable Weininger, Larissa Y Admitting Unavailable Weininger, Larissa Y Attending Unavailable Radha Mendoza Primary Care Unavailable Tellez PAC, Spenser Gallegos Admitting Unavailable Tellez PAC, Spenser Gallegos Attending Unavailable Radha Mendoza Primary Care Unavailable Tellez PAC, Spenser N Admitting Unavailable Tellez PAC, Spenser Gallegos Attending Unavailable Radha Mendoza Attending Unavailable Radha Mendoza Primary Care Unavailable Radha Mendoza Primary Care Unavailable Radha Mendoza Attending Unavailable Radha Mendoza Primary Care Unavailable CELESTE, COLE R Admitting Unavailable CELESTE, COLE R Attending Unavailable Radha Mendoza Primary Care Unavailable CELESTE, COLE R Admitting Unavailable CELESTE, COLE R Attending Unavailable Radha Mendoza Primary Care Unavailable CELESTE, COLE R Admitting Unavailable CELESTE, COLE R Attending Unavailable Radha Mendoza Primary Care Unavailable CELESTE, COLE R Admitting [...] Propensity to adverse reactions to drug (disorder) [facility] Repository Medications Current Medications Medication Drug [...] swallow in the morning. Active blood-glucose meter [facility] [place] source[place] Start: 11-22-2024 blood-glucose [address] [facility] Indications: Polyhydramnios affecting in third trimester Check [...] 50 lozenge(s), 0 Refill(s), 10/16/24 8:59:00 AM [facility], Pharmacy: [facility] [id number], 1 lozenge(s) Oral 5x/Day,x10 day(s), 170.18, cm, [...] UA Negative Negative - 4(70) +++ mg/dL [facility] Blood, UA Negative Negative - 50 Osvaldo/mcL [facility] Clarity, UA Clear [facility] Color, UA Yellow [facility] Glucose, UA Negative Negative - 2000(110) ++++ mg/dL [facility] Interpretation and review of laboratory results Abnormal [facility] Ketones, UA Negative Negative - 160(16) ++++ mg/dL [facility] Leukocytes, UA Positive Negative - 500+++ Edison/mcL [facility] Comment on above: small Nitrite, UA Negative Negative - Positive [facility] pH, UA 7 5 - 9 [facility] Protein, UA Negative Negative - 2000(20) ++++ mg/dL [facility] Spec Grav, UA 1.015 1 - 1.03 [facility] Urobilinogen, UA 1.0 0.2 - 12 mg/dL [facility] US OB BPP W NON-STRESS on 12-17-2024 [place] [address] Ultrasound Report Signed Patient: SHERLY ERICKSON MR#: [id number] : 2000 Acct:[id number] Age/Sex: 24 / F ADM Date: 12/17/24 Loc: [facility] 250- Attending Dr: Cole Alonso D.O. Ordering Physician: Cole Alonso D.O. Date of Service: 12/17/24 Procedure(s): US OB BPP w non-stress Accession Number(s): [id number] cc: RADHA MENDOZA ; Cole Alonso D.O. The [address] [address] Patient Name: SHERLY ERICKSON MRN: TBH:[id number] date: 2000 Sex: F Assigned Patient Location: [facility] Current Patient Location: [facility] Accession/Order Number: [id number] Exam Date: 12/17/2024 12:05 Report Date: 12/17/2024 [...] Bailey Beasley M.D.12/17/2024 12:09 PM Dictation Location: [place] [address] Electronically authenticated by: [id number] Y Date: 12/17/2024 12:09 Dictated By: Bailey Beasley M.D. 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 Ordering Physician: Cole Alonso D.O. Date of Service: 12/17/24 Procedure(s): US OB BPP w non-stress Accession Number(s): [id number] cc: RADHA MENDOZA ; Cole Alonso D.O. The [place] [id number] Patient Name: SHERLY ERICKSON MRN: TBH:[id number] date: 2000 Sex: F Assigned Patient Location: [facility] Current Patient Location: [facility] Accession/Order Number: [id number] Exam Date: 12/17/2024 12:05 Report Date: 12/17/2024 [...] Bailey Beasley M.D.12/17/2024 12:09 PM Dictation Location: [place] [address] Electronically authenticated by: [id number] Y Date: 12/17/2024 12:09 Dictated By: Bailey Beasley M.D. Signed By: 12/17/24 1212 DD/ 1209 TD/TT: Wood Tile Installer: [facility] Radiology Study observation (narrative) [facility] OB BPP W NON-STRESS Ordered By: Radiologist Radiology on 12-17-2024 [facility] Work Phone: Outside Recordson 12-11-2024 Outside Records [id number]#1.0 0OTGTIFF Normal [facility] Urinalysis macro (dipstick) panel (U)on 12-11-2024 Bilirubin, UA Negative Negative - 4(70) +++ mg/dL [facility] Blood, UA Negative Negative - 50 Osvaldo/mcL [facility] Clarity, UA Clear [facility] Color, UA Yellow [facility] Glucose, UA Negative Negative - 1999(110) ++++ mg/dL [facility] Interpretation and review of laboratory results Normal [facility] Ketones, UA Negative Negative - 160(16) ++++ mg/dL [facility] Leukocytes, UA Negative Negative - 500+++ Edison/mcL [facility] Nitrite, UA Negative Negative - Positive [facility] pH, UA 6 5 - 9 [facility] Protein, UA Negative Negative - 1999(20) ++++ mg/dL [facility] Spec Grav, UA 1.025 1 - 1.03 [facility] Urobilinogen, UA 1.0 0.2 - 12 mg/dL [facility] US OB BPP W NON-STRESS on 12-10-2024 [place] [address] Ultrasound Report Signed Patient: SHERLY ERICKSON MR#: [id number] : 2000 Acct:[id number] Age/Sex: 24 / F ADM Date: 12/10/24 Loc: US Attending Dr: Cole Alonso D.O. Ordering Physician: Cole Alonso D.O. Date of Service: 12/10/24 Procedure(s): US OB BPP w non-stress Accession Number(s): [id number] cc: RADHA MENDOZA ; Cole Alonso D.O. The [address] [address] Patient Name: SHERLY ERICKSON MRN: [id number] date: 2000 Sex: F Assigned Patient Location: US Current Patient Location: Accession/Order Number: [id number] Exam Date: 12/10/2024 13:07 Report Date: 12/10/2024 13:08 At the request of: COLE ALONSO DO Procedure: US OB BPP w non-stress Biophysical profile. Reason for exam: Excessive growth. COMPARISON: BPP 11/19/2024. TECHNIQUE: Transabdominal imaging of the gravid uterus was obtained. FINDINGS: Coiler Operator reports a BPP of 8 out of 8. Abnormal JET of 29.8 cm. heart rate 131 bpm. US/US OB BPP w non-stress IMPRESSION: BPP 8 out of 8. Polyhydramnios. Impression dictated by: Alexy Sparks Jr., D.O.12/10/2024 1:08 PM Dictation Location: [place] [address] Electronically authenticated by: [id number] Y Date: 12/10/2024 13:08 Dictated By: Alexy Sparks M.D. Signed By: 12/10/24 1310 DD/ 1308 TD/TT: Wood Tile Installer: [employer] Radiology, Radiologi MD juan carlos - 12/10/2024 [place] [address] Ultrasound Report Signed Patient: SHERLY ERICKSON MR#: [id number] : 2000 Acct:[id number] Age/Sex: 24 / F ADM Date: 12/10/24 Loc: US Attending Dr: Cole Alonso D.O. Ordering Physician: Cole Alonso D.O. Date of Service: 12/10/24 Procedure(s): US OB BPP w non-stress Accession Number(s): [id number] cc: RADHA MENDOZA ; Cole Alonso D.O. The [place] [address] Patient Name: SHERLY ERICKSON MRN: [employer]:[id number] date: 2000 Sex: F Assigned Patient Location: US Current Patient Location: Accession/Order Number: [id number] Exam Date: 12/10/2024 13:07 Report Date: 12/10/2024 13:08 At the request of: COLE ALONSO DO Procedure: US OB BPP w non-stress Biophysical profile. Reason for exam: Excessive growth. COMPARISON: BPP 11/19/2024. TECHNIQUE: Transabdominal imaging of the gravid uterus was obtained. FINDINGS: Coiler Operator reports a BPP of 8 out of 8. Abnormal JET of 29.8 cm. heart rate 131 bpm. US/US OB BPP w non-stress IMPRESSION: BPP 8 out of 8. Polyhydramnios. Impression dictated by: Alexy Sparks Jr., D.O.12/10/2024 1:08 PM Dictation Location[facility] Electronically authenticated by: [id number] Y Date: 12/10/2024 13:08 Dictated By: Alexy Sparks M.D. Signed By: 12/10/24 1310 DD/ 1308 TD/TT: Wood Tile Installer: [facility] Radiology Study observation (narrative) [facility] US OB BPP W NON-STRESS Ordered By: Radiologist Radiology on 12-10-2024 [facility] [email or web address] Work Phone: Outside Recordson 12-05-2024 Outside Records [id number]#1.00O TGTIFF [facility] Office Visiton 12-03-2024 Follow-up visit [id number] Sherly Erickson 2000 F Date Provider Department Center 12/03/2024 ANGEL LUIS SAUCEDO [facility] Family History Problem Relation Age of Onset Diabetes Mother Diabetes Maternal Grandmother Diabetes Maternal Grandfather Family Status - Relation Status Age at Mother Maternal Grandmother Maternal Grandfather Level of Service:98170 [place] OFFICE/OUTPATIENT ESTABLISHED LOW MDM 20 MIN Reason for Visit and Comments: Hypertension [049020] Hyperlipidemia [182] Normal [facility] US OB BPP W NON-STRESS on 12-03-2024 The [facility] [address] [place] [address] Ultrasound Report Signed Patient: SHERLY ERICKSON MR#: [id number] : 2000 Acct:[id number] Age/Sex: 24 / F ADM Date: 12/03/24 Loc: US Attending Dr: Cole Alonso D.O. Ordering Physician: Cole Alonso D.O. Date of Service: 12/03/24 Procedure(s): US OB BPP w non-stress Accession Number(s): [id number] cc: RADHA MENDOZA ; Cole Alonso D.O. The [place] [address] Patient Name: SHERLY ERICKSON MRN: [employer]:[id number] date: 2000 Sex: F Assigned Patient Location: [facility] Current Patient Location: Accession/Order Number: [id number] Exam Date: 12/03/2024 14:34 Report Date: 12/03/2024 [...] Robert Hui M.D.12/03/2024 2:36 PM Dictation Location: [place] [address] Electronically authenticated by: [id number] Y Date: 12/03/2024 14:36 Dictated By: Robert Hui D.O. Signed By: 12/03/24 1438 DD/ 1436 TD/TT: Wood Tile Installer: [employer] RadiologyApril MD - 12/03/2024 [place] [address] Ultrasound Report Signed Patient: SHERLY ERICKSON MR#: [id number] : 2000 Acct:[id number] Age/Sex: 24 / F ADM Date: 12/03/24 Loc: US Attending Dr: Cole Alonso D.O. Ordering Physician: Cole Alonso D.O. Date of Service: 12/03/24 Procedure(s): US OB BPP w non-stress Accession Number(s): [id number] cc: RADHA MENDOZA ; Cole Alonso D.O. [address] [address] Patient Name: SHERLY ERICKSON MRN: [employer]:[id number] date: 2000 Sex: F Assigned Patient Location: [facility] Current Patient Location: Accession/Order Number: [id number] Exam Date: 12/03/2024 14:34 Report Date: 12/03/2024 [...] Robert Hui M.D.12/03/2024 2:36 PM Dictation Location: [place] [address] Electronically authenticated by: [id number] Y Date: 12/03/2024 14:36 Dictated By: Robert Hui D.O. Signed By: 12/03/24 1438 DD/ 1436 TD/TT: Wood Tile Installer: [facility] [email or web address] Radiology Study observation (narrative) [facility] US OB BPP W NON-STRESS Ordered By: Radiologist Radiology on 12-03-2024 [facility] [email or web address] Work Phone: Outside Record[employer] 11-27-2024 Outside Records [id number]#1.00O [facility] US OB BPP W NON-STRESS on 11-26-2024 The [place] [id number] Ultrasound Report Signed Patient: SHERLY ERICKSON MR#: [id number] : 2000 Acct:[id number] Age/Sex: 24 / F ADM Date: 11/26/24 Loc: US Attending Dr: Cole Alonso D.O. Ordering Physician: Cole Alonso D.O. Date of Service: 11/26/24 Procedure(s): US OB BPP w non-stress Accession Number(s): [id number] cc: RADHA MENDOZA ; Cole Alonso D.O. The [address] [address] Patient Name: SHERLY ERICKSON MRN: [employer]:[id number] date: 2000 Sex: F Assigned Patient Location: US Current Patient Location: Accession/Order Number: [id number] Exam Date: 11/26/2024 14:21 Report Date: 11/26/2024 14:21 At the request of: COLE ALONSO DO Procedure: US OB BPP w non-stress Biophysical profile. Reason for exam: Excessive growth. COMPARISON: BPP 11/19/2024. TECHNIQUE: Transabdominal imaging of the gravid uterus was obtained. FINDINGS: Coiler Operator reports a BPP of 8 out of 8. Normal JET of 22.6 cm. heart rate 146 bpm. US/US OB BPP w non-stress IMPRESSION: BPP 8 out of 8. Impression dictated by: Alexy Sparks Jr., D.O.11/26/2024 2:21 PM Dictation Location: [place] [address] Electronically authenticated by: [id number] Y Date: 11/26/2024 14:21 Dictated By: Alexy Sparks M.D. Signed By: 11/26/24 1424 DD/ 142 TD/TT: Wood Tile Installer: [employer] Radiology, Radiologi MD juan carlos - 11/26/2024 The [place] [id number] Ultrasound Report Signed Patient: SHERLY ERICKSON MR#: [id number] : 2000 Acct:[id number] Age/Sex: 24 / F ADM Date: 11/26/24 Loc: US Attending Dr: Cole Alonso D.O. Ordering Physician: Cole Alonso D.O. Date of Service: 11/26/24 Procedure(s): US OB BPP w non-stress Accession Number(s): [id number] cc: RADHA MENDOZA ; Cole Alonso D.O. [place] [address] Patient Name: SHERLY ERICKSON MRN: [id number] date: 2000 Sex: F Assigned Patient Location: US Current Patient Location: Accession/Order Number: [id number] Exam Date: 11/26/2024 14:21 Report Date: 11/26/2024 14:21 At the request of: COLE ALONSO DO Procedure: US OB BPP w non-stress Biophysical profile. Reason for exam: Excessive growth. COMPARISON: BPP 11/19/2024. TECHNIQUE: Transabdominal imaging of the gravid uterus was obtained. FINDINGS: Coiler Operator reports a BPP of 8 out of 8. Normal JET of 22.6 cm. heart rate 146 bpm. US/US OB BPP w non-stress IMPRESSION: BPP 8 out of 8. Impression dictated by: Alexy Sparks Jr., D.O.11/26/2024 2:21 PM Dictation Location: [place] [address] Electronically authenticated by: [id number] Y Date: 11/26/2024 14:21 Dictated By: Alexy Sparks M.D. Signed By: 11/26/24 1424 DD/ 20 TD/TT: Wood Tile Installer: [facility] Radiology Study observation (narrative) [facility] US OB BPP W NON-STRESS Ordered By: Radiologist Radiology on 11-26-2024 [facility] Work Phone: Legal Documentson 11-20-2024 Legal Documents [id number]#1.00O [facility]) panel (U)on 11-20-2024 Bilirubin, UA Negative Negative - 4(70) +++ mg/dL [facility] Blood, UA Negative Negative - 50 Osvaldo/mcL [facility] Clarity, UA Clear [facility] Color, UA Yellow [facility] Glucose, UA Negative Negative - 1999(110) ++++ mg/dL [facility] Interpretation and review of laboratory results Normal [facility] Ketones, UA Negative Negative - 160(16) ++++ mg/dL [facility] Leukocytes, UA Negative Negative - 500+++ Edison/mcL [facility] Nitrite, UA Negative Negative - Positive [facility] pH, UA 6.5 5 - 9 [facility] Protein, UA Negative Negative - 1999(20) ++++ mg/dL [facility] Spec Grav, UA 1.02 1 - 1.03 [facility] Urobilinogen, UA 0.2 0.2 - 12 mg/dL [facility] Outside Recordson 11-13-2024 Outside Records [id number]#1.00O [facility] US OB BPP W NON-STRESS on 11-12-2024 [place] [address] Ultrasound Report Signed Patient: SHERLY ERICKSON MR#: [id number] : 2000 Acct:[id number] Age/Sex: 24 / F ADM Date: 11/12/24 Loc: US Attending Dr: Cole Alonso D.O. Ordering Physician: Cole Alonso D.O. Date of Service: 11/12/24 Procedure(s): US OB BPP w non-stress Accession Number(s): [id number] cc: RADHA MENDOZA ; Cole Alonso D.O. [address] [address] Patient Name: SHERLY ERICKSON MRN: [employer]:[id number] date: 2000 Sex: F Assigned Patient Location: Current Patient Location: Accession/Order Number: [id number] Exam Date: 11/12/2024 13:57 Report Date: 11/12/2024 13:58 At the request of: COLE ALONSO DO Procedure: US OB BPP w non-stress BIOPHYSICAL PROFILE: CLINICAL INFORMATION: Excessive growth COMPARISON: Pelvic ultrasound 06/07/2024 There is a single live intrauterine gestation in breech presentation. The reported gestational age is 31 weeks 3 days. The heart rate [id number] beats per minute. FINDINGS: TONE: 1 or [...] Bailey Beasley M.D.11/12/2024 1:58 PM Dictation Location: [place] [address] Electronically authenticated by: [id number] Y Date: 11/12/2024 13:58 Dictated By: Bailey Beasley M.D. Signed By: 11/12/24 1401 DD/ 1358 TD/TT: Wood Tile Installer: [employer] Radiology, Radiologi MD juan carlos - 11/12/2024 [place] [address] Ultrasound Report Signed Patient: SHERLY ERICKSON MR#: [id number] : 2000 Acct:[id number] Age/Sex: 24 / F ADM Date: 11/12/24 Loc: US Attending Dr: Cole Alonso D.O. Ordering Physician: Cole Alonso D.O. Date of Service: 11/12/24 Procedure(s): US OB BPP w non-stress Accession Number(s): [id number] cc: RADHA MENDOZA ; Cole Alonso D.O. The [place] [address] Patient Name: SHERLY ERICKSON MRN: [id number]:[id number] date: 2000 Sex: F Assigned Patient Location: US Current Patient Location: Accession/Order Number: [id number] Exam Date: 11/12/2024 13:57 Report Date: 11/12/2024 13:58 At the request of: COLE ALONSO DO Procedure: US OB BPP w non-stress BIOPHYSICAL PROFILE: CLINICAL INFORMATION: Excessive growth COMPARISON: Pelvic ultrasound 06/07/2024 There is a single live intrauterine gestation in breech presentation. The reported gestational age is 31 weeks 3 days. The heart rate [id number] beats per minute. FINDINGS: TONE: 1 or [...] Bailey Beasley M.D.11/12/2024 1:58 PM Dictation Location: [place] [address] Electronically authenticated by: [id number] Y Date: 11/12/2024 13:58 Dictated By: Bailey Beasley M.D. Signed By: 11/12/24 1401 DD/ 1358 TD/TT: Wood Tile Installer: [facility] Radiology Study observation (narrative) [facility] OB BPP W NON-STRESS Ordered By: Radiologist Radiology on 11-12-2024 [facility] Work Phone: Outside Recordson 11-09-2024 Outside Records [id number]#1.00O TGTIFF Normal [facility] Urinalysis macro (dipstick) panel (U)on 11-06-2024 Bilirubin, UA Negative Negative - 4(70) +++ mg/dL [facility] Blood, UA Negative Negative - 50 Osvaldo/mcL [facility] Clarity, UA Clear [facility] Color, UA Yellow [facility] Glucose, UA Negative Negative - 1999(110) ++++ mg/dL [facility] Interpretation and review of laboratory results Normal [facility] Ketones, UA Negative Negative - 160(16) ++++ mg/dL [facility] Leukocytes, UA Negative Negative - 500+++ Edison/mcL [facility] Nitrite, UA Negative Negative - Positive [facility] pH, UA 6.5 5 - 9 [facility] Protein, UA Negative Negative - 1999(20) ++++ mg/dL [facility] Spec Grav, UA 1.02 1 - 1.03 [facility] Urobilinogen, UA 0.2 0.2 - 12 mg/dL [facility] Office/Clinic Noteon 025 Office/Clinic Note Patient: SHERLY ERICKSON Age: 24 years Sex: FEMALE : 2000 Associated Diagnoses: Tinea corporis; Tinea corporis; Eustachian tube dysfunction Author: Radha Mendoza MD A History of Present Illness 24-year-old [...] Prescriptions Prescribed ketoconazole 2% topical cream: 1 zoarn, Topical, Daily, for 10 day(s), 30 gm, [...] 124.010 kg Body Mass Index 42.82 kg/m2 [facility] Body Weight Calculated 61.6 kg BSA Measured [...] lesion. Impression and Plan Diagnosis Tinea corporis (EHW11-HB B35.4). Plan: Will treat with topical antifungal over the next 7 to 10 days.. Orders Orders Pharmacy: ketoconazole 2% topical cream (Prescribe): 1 zoran, Topical, Daily, for 10 day(s), 30 gm, 0 Refill(s). Orders Evaluation and Management: [id number] Office visit - established pt, Level 3 (Order): 10/25/2024 13:24 EST, Qty: 1, Tinea corporis - Eustachian tube dysfunction. Diagnosis Eustachian tube dysfunction (TKI40-RZ H69.90). Course: Discussed with patient most likely some fluid behind her ear. No evidence infection. Continue to just observe.. [Electronically Signed on: 10/25/2024 14:14 EST] Jason MCNEAL, Rd[place] [Verified on: 10/25/2024 14:14 EST] Radha Mendoza MD [facility] ALL CBC WITH AUTO DIFFon BASOPHILS ABSOLUTE AUTO 0 [facility] Basophils/100 WBC (Bld) 0.3 % 0.2 - 2.0 % [facility] Eosinophils/100 WBC (Bld) 2.1 % 0.9 - 7.0 % [facility] Erythrocyte distribution width (RBC) [Ratio] 14.3 % 11.0 - 15.0 % [facility] Hematocrit (Bld) [Volume fraction] 32.1 % Low 36.0 - 48.0 % [facility] Hemoglobin (Bld) [Mass/Vol] 10.5 g/dL Low 12.0 - 16.0 g/dL [facility] IMMATURE GRANULOCYTES ABS AUTO 0.34 High [facility] Immature granulocytes/100 WBC (Bld) 3.4 % High 0.0 - 0.5 % [facility] Interpretation and review of laboratory results Abnormal [facility] LYMPHOCYTES ABSOLUTE AUTO 2.4 [facility] Lymphocytes/100 WBC (Bld) 24 % 20.5 - 60.0 % [facility] MCH (RBC) [Entitic mass] 27.9 pg 26.7 - 34.0 pg [facility] MCHC (RBC) [Mass/Vol] 32.7 g/dL 29.9 - 35.2 g/dL [facility] MCV (RBC) [Entitic vol] 85.4 fL 81.0 - 99.0 fL [facility]OCYTES ABSOLUTE [facility] Monocytes/100 WBC (Bld) 4.2 % 1.7 - 12.0 % [facility] NEUTROPHILS ABSOLUTE AUTO 6.7 High [facility] Neutrophils/100 WBC (Bld) 66 % 43.0 - 75.0 % [facility] Platelet mean volume (Bld) [Entitic vol] 9 fL Low 9.5 - 13.5 fL [facility] TBH EO # 0.2 [facility] TB PLT 332 [facility] RBC 3.76 Low [facility] WBC 10.1 [facility] [facility] Office Visiton 10-24-2024 Follow-up visit [id number] BaudilioSherly Yue 2000 F Date Provider Department Center 10/24/2024 [id number] DENNISTRENTON LANGE CARD [facility] Family History Problem Relation Age of Onset Diabetes Mother Diabetes Maternal Grandmother Diabetes Maternal Grandfather Family Status - Relation Status Age at Mother Maternal Grandmother Maternal Grandfather Level of Service:47468 [place] OFFICE/OUTPATIENT NEW MODERATE MDM 45 MINUTES Reason for Visit and Comments: Rapid Heart Rate [281911] - Episodes of tachycardia include lightheadedness and SOB. Denies chest pain. She says sometimes HR gets up to 160's with rest. Problem [361034] - Currently 28 weeks gestation. This is her 2nd . She denies having issues like this during first . Palpitations [590369] Shortness of Breath [[id number]] Dizziness [510501] Normal [facility] Urinalysis macro (dipstick) panel (U)on 10-22-2024 Bilirubin, UA Negative Negative - 4(70) +++ mg/dL [facility] Blood, UA Negative Negative - 50 Osvaldo/mcL [facility] Clarity, UA Clear [facility] Color, UA Yellow [facility] Glucose, UA Negative Negative - 1999(110) ++++ mg/dL [facility] Interpretation and review of laboratory results Normal [facility] Ketones, UA Negative Negative - 160(16) ++++ mg/dL [facility] Leukocytes, UA Negative Negative - 500+++ Edison/mcL [facility] Nitrite, UA Negative Negative - Positive [facility] pH, UA 7 5 - 9 [facility] Protein, UA Negative Negative - 1999(20) ++++ mg/dL [facility] Spec Grav, UA 1.015 1 - 1.03 [facility] Urobilinogen, UA 0.2 0.2 - 12 mg/dL [facility] C Throaton 10-08-2024 C Throat Normal throat justine isolated No pathogens isolated Normal [facility] Comment on above: Performed By: #### [id number] ####[facility] (DEFAULT)[address] [place] [address] Coding Summaryon 10-08-2024 Coding Summary HTMLBase 64 XgtfzxtdDUj4eNb+PGhlYWQ +AK8JEEJyB75akUQwcV3lP9 NMTElOSywgQVBQTElOSyIgb cTtUM9aiJTmWKVa IC8+DV7xUEGwNcbtxVRnk5H 7sID7I87zrx5sKUdnaBM5AS NpUuOewmgpo8haaLz8UVywT mluOyBt OHMkoT45SMD0sK19Dc11nNJ arAXyl7uxkOg7NuBoKDIwWF G5pExeIPxqs3GjBFVyO20vl DKgq0S2 CYUqdUwpnAXwYmSosTA8lZ4 xVQmuojyaa0ndtwypBkn9xp 87eBRwp3Y6lNV9F9GmsoX8B GJvbGQg NqawkBNArS5lhpels2alaje sLeKqAURuIVj7VOx1EDQjfK mrBaCiZW93YUT7ZDIcrqWiT 2FsLWFs pYkeGrZ4p8B0Cm9WE2XWTai tH0LPTXEOIUrayVD+PC90cj 65F5NfYmkrFuh8VSNcILM9w UO2hQ2q JIQtZErbr3I5mLA3V5PcjaA vaw7hc0veTCYlSNjgD72gzL Grz2R5XUSsxOZ8WBPirVqqU iBzaG93 Oyc+WFIkqRoyp6XtTwtiw2o vc4ejqXm1HneqVKAjviNlmT qyQUA3z1HrHz6xZVVyuXV9w GX9sE0u NbZgHpX9SAgiX701BtPyfHZ yNsigZ69aL7DufXP+PHRyPj y6KORtdGdzYF4qG6GxSDYbc mctbGVm gArrUD6bKBEdzehsRLLejY9 bZZIiZ8s9CcVbClI8OTkgA6 SmGMSgxrkqMa41iN3yOxVjR oF0XWwe A2WxjjJ7IAHqsPRxUHojVCP 1M82zc1Q4XQRjJDHdMAM5qG L3hL6huAffulpueZGghJnui mVydGlj BJebMShiA363ZRAoaCrnGrQ vZGluZyBEYXRlOiAgMDIvMD MvMjAyNTwvdGQ+CGHtEPT7y WxlPSAn wDYxPMwvYl3ncMuolTzeCY7 uUDXdezreYASidT1wEPEqyV RktJogNT5nOAHsvegsw445D iAxMHB0 IYObaZAaI1TibW7oLpUvSFY qUXCuH5HxnULoUUqcE421JA siMvL8PGJqlpQuK1HiCGDqa WduOiB0 f1T1Ep3Ng6IbnmdxI5HkbCE yAtRmFesbJLm1L5KoGddllT I+WP08IWIpWM79OPc5XLN4o WxlPSdi VHGpZ3IgdL9wXzXvNXQdRSE kOyc+PHRhYmxlIHdpZHRoPS xnODBwRhKqoVsfRM6lAr6zB GVyLWNv cYzdyVGxBkTaz6laYZYhISj qCO9vtPxeD6PbcQC7LGMzj2 v3Cz29Q74fE5RioJU+PGNvb UD5iOC3 lP5eFeOfGxK2SJagR216IyD teIJqOtueh4axi3xxjGa8Bs T7QYSggeLkaUgsKFB6u0VrL y40A81h IHdpZHRoPSIxNSUiIHZhbGl oid7wqO0vDd0+AVBjvYR9pF B9zH3tOhDuSnM7HRafV490H nRvcCIv Svftt0zge5mrhVu0UcGcQBB zruTfpQesFWO3f8CyVe41T0 CquJvep8JsWjw4gt52gRNqv 5M2oPN9 I0KgMXEcvaeixGQewIdxTB0 jVIBftibsKBFmlF5lASOgO9 o4QwJrKlD0TYojT5FyjoN1J GJvbGQg KLUzePJCoU7tmcmgp1xxogq xCaGwFPKvBIg8GYh2DCBxkY wnPpUrPCX9PfE0NPI4nKYfw N2hbMrb psjtxX3dGvn+LTH6mQHcwTC YWN5yOjylgDO+FQXwUVP7oJ kyGJdkAVJacR1iNXFfW0r2V iAwLjA1 ZFdgG6FkvsS6ROOzoNBmWWS wfCNXuL1cvlsjs8qvukldAj TtPIXyGVb4VKl9QXSnrQzhK iBsZWZ0 EzN5ILE1lPTwkJ1kyUyxvrd plV3qOhq+ZxxfsVkbFUW4VO t2O9SxLuz2VDEnrBgtMG0bl GFkZGlu Kx4teDdrsBolYB2lFEOadpi nd429XrCra6ysTOWszJMyRY dfMAJ5M75gm2J7UDEbSDSnO NN9eUI6 uB3hmElmxfnwmFNbmQuiyiH wqFvuEWakVVmqH441VRPfzZ ruSxGpUKh2X1JvCjg8QXSmy RufGE4n vNBjJInqDl3rxIevkJcmIF7 eZDMygdhjw918KxGtr8xoVJ MqoUFjXNnpLKO7H06oy6E5Q CMwMDAw AQD5bNJ9hI8rgQyskfrydNR mdDsgdmVydGljYWwtYWxpZ2 55MSHmsDvoQeDbyQq7M4SdF hn7VSXh lQdpHU4lhIVwDEqdZe0kfIa jxNnwFA9yXGCghtgjc567Gv Ztf1ezLXXedAPrRFqdTFJ4G 93bs6O7 ERUwNABfYVI0gCV6cN6qkMm nbjogbGVmdDsgdmVydGljYW jqMYkiW874FANmaAejCyFcv GllbnQg PAucTWc1A1ToZgpofHF+PC9 4YPQhKT17oKFxpZKtr4cvuW h8LwVeLSCfWLN9gZvmEJqla 3JkZXIt B62ovSXvl3L3ITPadRmmoJN qTuDsiTS0qJ8eFVexfbbel2 nkblnzLaoqx9olub06rG37N 29sIHdp ZHRoPSIzMCUiIHZhbGlnbj0 kbO3iQd9+IGZyaQV9eLH3iR 2zDXZiUvY6IUzrP463YzIod CIvPjxj h5udg6rftKb9NzT8OURagzB huEoxZQC0b9JwLl65E91aSL dpZHRoPSIyMCUiIHZhbGlnb t4geP0p Ii8+ZPQuqQM9qFT9uS3hGsF bBdI3HLmxW486OjWfgWWvGq aoI44wE9WclPE+SOTgUwu7X CBzdHls OD1ylOPwLQzjWz9mAJC4KjD hMtVoVWjxE9QxVDSlzeijsg pcyAG8SCRvQWAxgB10Gf2yr DogMTBw wVPUqL7ovrzvj6qwnrcaXdN aPQSdFGa3TVn7PNAjbHhgXc MeRHB0IyC8DWI5oIEnsR7tp Glnbjog nE8oW5YmUUPicajoFq15jW4 fUvIaJwV6OKucBhq+Q1JBV0 ZPUkQsIEJSRUFOTkUgTUlDS EVMTEU8 G7BpGpz7UJPgxLhbKR6gnUQ mBWmcMg2qqUyjpVnuEM8nDL ImysgbUGKwuK6hLNQmhFFwf JxeBR0b DZJlpstkv217LnDzOIN6ZVT njRErS4FedE9xJmWhZSPzWR PkS9KrcCKxRDywI486TVfiB tI6JIHo rpJmH5EgMIFbuDuqVxS3r2B 7Am7hPy3wWC7rUCx9YK06NK 43hNKle9C3kQT7B2FwZKMlh mctcmln qXZ1JSGbZPFnqY54dLXiNLz yKy7wa1S1f316KGLyXSOtbP 35Oz5avWncEMBicYCFcL5it tddc7ka jlomCzFaWMXvLEd6YLb4IRW iyQaqQjFbPXI4FnL5WCT7cL HjfD8yhOdfhiywnG7tNpl+M jYgWWVh rlU0N0VzWir2JULpgMrpCX1 oeCCqSOmtGv1sjPzfeYzwZH 5rURYvlusvRECxaD5uIDNfv HRvbTog LZ9lPBXwuydnj823XvXtSKI 3ADRpcSHvA1OomD1vQoEwAU AvUULzF5WlqFPqHRxdB891O GxlZnQ7 ILGjcwGeP1HiITRkmLqvVzE 8q5A0Dn1XPY3HFQL7I6GgOb x1GJOudVddUT1rpBYuLYztF k5xfRfg gVoqCV8rUOBolmwxTRZafA9 kEPWkcARauZzwTV3iBGRlvh jxp980HdHtIVB0KLLilTLnX 3TpgF0q IiNrQMWmEBGvQ3XgvXKzXPx kT479PZxbHxP5AIJompFgQ0 MkONWbmDpaTgV9p6C0Jt3IS DwvdGQ+ EM79ts17L6XxQapeHlj8CAK yIGK8sOY3tJ1xGEGcCTssv1 A5mWH2Z1JcslJqhc1be9msQ XBzZTog O11ocUDok0J4MYUjiRR2NJQ tbImrOmJudF77Yap+PGNvbG njh7VoAspzl5sbg2zuwNc3M jMwJSIg hfHoqSvaCZA1d9JgUl07T04 sIHdpZHRoPSIzMCUiIHZhbG dflf3mqD0vQb3+HYXgdDS1e LW8aX3v QsXiAhQ5QAtxB753TjOjrJD uDibtz5gpk2auoKp6ViWfIA SilfSriCpgLVZ2w9NnPo13L 2NvbGdy y4GkEjq9ey93fOAia0T9tNB 0J5IzHOVvgoobnHMoqPvlDS 0eUZRmjtmfSVMgyJ7dKJKiS 4y5BuNw HrR0ZCieK8GzvqD2HWIzxLG wPHYusWORaT7zclwud8zqpb dyPcCcRIYvLWm9LIf3MUNfi WduOiBs CJF4RzO4XEV1bKPenD4jcJt hsrbanX0uNnb+GEh8f0bfdE SlVT4qiBE7EM19TM75gMPkv 9Z0nVQ4 D6GaFXEytyeljpzzgGK6KTT qDEOdoV35Mm3olQsfTv3hCP OgOIB8FRFctLImI7CahW4cD iAjMDAw MNElI3IfjEHcFHquT987FEk bJpA9NMSkpcEqZ7TrLBXpkZ uuJvR6n1E3Jd6UJC42XK61L W76aFHf s6L3wJT5V0FbEEUrbquyhbx ocKY1CTNfMGWsqM28Kx6syZ gzYh8mBZIwDRA4LWPtoKOzA 5TvnX4m TuVhTMOoWNXvV7YfmNHtEFq nM735RXnfYtW4RGPhsvWoB6 VqTZFaiHmlEdQ1p8Q2Hw7QV t66IC48 HR00hXZzr3V3tKS2K9IgNEY ymdfvoaaiwIQ4PIOvIBJdzK 00Ce2uzZuaNl8cJAApZFV4P FRpbWVz S1QygB9mSeIdROAmZDNdS8G hnFQlZCmjF234MKtoChR9FY PxttQxW2MrTGNjjParRkH7j 7W6Kq4M UFkevtg5Y9AvSkssmFO+PC9 6UQFqES32mFGptZEnk5jfpP y9DaScQRHoLDK8bFhzRNmqv 3JkZXIt Y29 (more content not included)... Normal [facility] POCT Rapid Strepon S. pyogenes Ag IA Ql (Unsp spec) Negative Invalid Interpretation Code [facility] Comment on above: Performed By: #### 9 [id number] #### [facility] (DEFAULT) [address] [place] [address] C Throaton 09-26-2024 C Throat Normal throat justine isolated No pathogens isolated Normal [facility] Comment on above: Performed By: #### 3 [id number] #### [facility] (DEFAULT) [address] [place] [address] Coding Summaryon 09-26-2024 Coding Summary HTMLBase 64 HayvwswbEJt2bBf+PGhlYWQ +YH2PHPWnC47klWYenP0hT7 NMTElOSywgQVBQTElOSyIgb lYyOK4cmBTqRPXh IC8+KQ3cVOXsVmpjlPNde6M 9kBJ4H85fsk5hWPxfjQO8RK AoUhXsldhji4zggRy1HUjzQ mluOyBt MSXhnJ03LVK0kR65Ud49hKM ezRAey1wlcXi5VeMjXGGcFP T7jYnyVDgmy1XwBAOcY18tj ERou9P6 VLQvmUhjqOQwVnRhiEA9qN9 gFXihdxhmv5zhyvhqSll7hr 57nJYlu4V6hRP2Z3JmtwZ6W GJvbGQg GbbxeKDVnO4lkhqna2jaazm rInOlNKRxVBw4SAs7WRGhlH grYxAnNN64KWP8VUJplvScI 2FsLWFs lNyjRzB0c5W7Dz7PR6ELMme gU3XPIMZZPToswGT+PC90cj 01L7OiGwloLqy7CFXiJBK6x ZZ9eM2n DQIlKHjlr9Z7mAI2U0SpvvR rgp8hq4ujDGOjKHaeZ15fxQ Khu3T9FVSdtCJ1AKBdsEbtX iBzaG93 Oyc+DTVnzSxhj5JoWwugk3f yo8rluTr7NqmkCAGdmxUezR jtYZR6y1MmVo4kLJOjbPM7d VT0mW7b VtMuOlA2XKmbH373ZmAgwZB kGqbvT13tE0YtjSA+PHRyPj z0UPGkiJtzSO9xI1PsILGpa mctbGVm uPqeTW6fCRWeemwnVCNlrK6 wDDPbD4x8VgGcMwC6DKoqF8 FpWQPefgwjSy58kA5dZjYbA gR3HFsw T8VkumH2KWYyeLMcZUubAKH 8Q98wc2B3NRTtUQNvUHK5aN S6aM2jvVavphnduUCxtNrmq mVydGlj RQqlVIdyH849IVMwtQstEtB vZGluZyBEYXRlOiAgMDEvMj IvMjAyNTwvdGQ+FNPdXEW9e WxlPSAn xDKkPKbvUi7qtCxtgUsbQY3 vVDEjxzsxBSCquV5vSRNqqT GtsCieLJ5sZYGhlaoei777B iAxMHB0 GTXxmQEmP6TeaD0wRvFyMCX dJMRtO9HqiRCnBLqeJ215KP vlYfT6XCPzuiAzS9FdKCKhe WduOiB0 t4K6Ze9Zt7XlfdxyS6UkeSI qBzIyEshqABe1S0DxEqtpvB I+GP39LWPoXF03ZCj7CXN4n WxlPSdi UCYiX5EroK5yJwVqSOIeRYS kOyc+PHRhYmxlIHdpZHRoPS roOWKeDyXqrGfdYJ1dBi2zZ GVyLWNv zNglsSSfXkOfn9ghJYMlURf vGH6ocKdjV0SujDO6NMHor1 k8Xr04I46xF6DwnAJ+PGNvb CN6xTS9 cW8nBgUwMjW8JQtaZ456TcW ltKGqJxfsq5eqq2ntkAk2Nw Q4EGPcziQfzGylEBU9l7NzM x61F11d IHdpZHRoPSIxNSUiIHZhbGl xyv3ziQ6xAg3+RYJaqXI5yS K9aV3pZcJnBzT8DXgpM959S nRvcCIv Vyiiv6rmp4dxjEi5NwIxGUS pivUovMunAWI1y4DnHe20A1 BxuDnqx6JsFnb7aa26iGBbf 9V8gTH0 J3ZqKESmwkqghBDalVosSE5 zWVWmayveJETzrM2kLUOrC6 i5EbRjVsZ3IMzqT9CkrbM3S GJvbGQg GQJcgVNXzQ9dpgsvn5luazy sQcCnCYYxGHn2OFr5FYWfbJ rfWoKjAFL3PuS8LTS2iYZtu F7enTgj uvysxG5qSps+YOP1xJTwtJA SXB7pOumjxZA+SVRhIWY5qE ehZXsiPYHnkS8cGNMpE3g2Q iAwLjA1 HGevF1ZaqkQ0NICvkTHmWXD yfYFLmX1yupqta5qtppcgIy KuAPYrRGs1KDw9ASNjiPtiU iBsZWZ0 DwP0INM6uIZzgI8eyPmkrau hiH8nRww+InbfbPzvYJJ6ZW v2V3QmVbv1WJCxuGwiVH4rl GFkZGlu Bo5saSmooZeuAN8gDAMmdcf oj685WeTno2onEYLtyUIdBU vkROA2B62ny0I1XONwAWFcJ OS9uJR5 vP1tnMnfbmcgbKRqxFbciiV bbDkjAUqwKVduQ969YYWpbG ioToYqXYs5V5FlWly1XXHej RllWO2s yMQsCHrqFt7vvTgimPdfHD0 gTZFcbbhsu399BxMeq0blLM KrmIPfRAavXUF6R13ji4I0U CMwMDAw JVF6fXJ0lU2plGemtjyjbVL mdDsgdmVydGljYWwtYWxpZ2 07IPKffLseJxOmuVa6R8FzH hn3LABx iGfsIO1lhLIbUGflAl3ucEw rbTteYQ6iIHQkyhkpp912Wq Qir8oeBWIjgLWoYEtpEIH8D 44nw9U3 LNOoVSTsTIU2cIW5uM6fiZk nbjogbGVmdDsgdmVydGljYW gaXRmkV626HINahZfeSjIyw GllbnQg AIbiSAq0E6EzVesluKL+PC9 2AUNiAJ25fHNybBSpo0begW w2FsRxDGNiXZG9pDgvPHfhu 3JkZXIt A38bdZMef2D8KXMrbZovkWN bJuBifBQ5qJ6kKOdgidiqi9 atviovZgytb1jdpk31oB33U 29sIHdp ZHRoPSIzMCUiIHZhbGlnbj0 faI6dCf6+NVFefCQ4rUL0rI 7wMTTzKrN5PZtjB582FaPyp CIvPjxj f2bna4yokOh2CeS8SSThjeZ caDotOYW6a4VfIp24T01xVB dpZHRoPSIyMCUiIHZhbGlnb b0lzI1e Ii8+LGCzfVV7fEB2gL5nDdH lDjH8GEjqE334SjHsuRMfWa obE84mI7YdhTC+MVPeXma8J CBzdHls RB6urXArTZgaDs7uUKB0KtK jPkNaOZndH9EtEAPchmvmsr ullWK3JPMeZOWikM69Mb1gg DogMTBw aRCHvK0eyphau8qlpbccJnB fXCJhGSp8JGo1UTEmvSlcCk NzHVN0EgP5PEL3aXBkjX7rk Glnbjog zZ8uW8WoDQHjixuoOr27xZ3 yIcWiKwB3EBdyCxq+Q1JBV0 ZPUkQsIEJSRUFOTkUgTUlDS EVMTEU8 C4EaAsq6BRRfiMelXY8erKT xVWgdDw1gsLgysQkuZD7vWL YeeiltASTrvC6wGMGwmYFvh HegOC4h LETqkrljw499QeAdTUY9QRL cwAUbX0AatL7vCrTuRGGrLJ PrJ2JskDRkZZooH237GYfkL fJ8AWQp rqVoH8ShQQZhpXvdTnB9t8I 2Ah8vCx4bPB6sQQz7XV69TC 80bGBmc5F0bHC3P1VqHHZir mctcmln vLF3VNZdGNObpV28zLKgXBd fPa0so9I6z612EBYiWVLocL 68Fd3mlVnuMUWrjMUSsD6mz znhy4ev xscvLbHkZTLpPPn5NLb5HIR iyCgyZwVyNGK3JsV2YLC5rA MjmS6jhYusphidrI0eDhx+M jYgWWVh lqX5L5IvJcb0DDXhlTsnKV9 ylLNlIBymAm5uhBktiCyiFQ 0nUOJwihjmZIFfgT9uBZIqu HRvbTog TH5cDLXzvemhs929PgTbEWP 0IEUgvRLiX7QgwH7lKsKdXS AnCMPpQ5EakEIqNYrgM957L GxlZnQ7 SUXxsgOwZ7DiJTTywIumCzP 8x6J4Jq0XLU9CKGU8C3BsOo e4TCAbdEjrRA5apSQaYUvlE j3mpPcp hIxuHO5jMJLlobsjVWUvkF3 yBRQfySYayOadZB0bJFVltg gty216VnYvOWG6CBHmsHJpV 9WqcT9a CqKkETCcSVApQ3HujGNhRTn bX791GRsnJmO7MGHfmrBvL9 CmVBCsnSvkAwB3q8N8Bu9FI DwvdGQ+ PC70my45N3XyCdizLeq3AAH hLSP6bHV5oX5jFAZeYCaty8 B3qXG5C2YwlzGymm6dj3krT XBzZTog C24eiWPcm2Q1ZFWhdEX1TIT cuYxaUyAomB94Vdj+PGNvbG fkk7BdKtxww3ify1xgzIm0Y jMwJSIg rmSvyVfbVDH3n2XzBk86J38 sIHdpZHRoPSIzMCUiIHZhbG yrps2ohA4vSc0+TKKafZF5k TP1cM9m EoXlEnJ6KEnwO343XiBymFR xDhyoz3yvt0jkfYk2AxKnFE MuyvUphMijOBD7i4AdIp82B 2NvbGdy s9VlSzp6js32eLSkl4H5xTK 5D5NqZFBpjfketAKgmBniMG 1aGJStqhsuAITjhG1oPVQsF 1q8RvYv FbG3HBhoP1GcujG5NWQfvKU yYNMdgTECiQ7smekac3pwgo llEaBnQEKpSTi7POk2SDRkm WduOiBs YRS2XmS8XAC0bNMqeV6jtSr ujkhhwH9gCcc+ZPt6m8bbkQ GqAI9heEJ7ZA75SV67qYSss 6T2vCX3 G8NyWSCnjceuxcnfyPV1YLF gUANkbL75Mw8chBpdCh3uGW TjQAA0SLNheUJvA1MiaX6cZ iAjMDAw YCGkJ3WylPPtFIpaV709QXs rAdM1UOJjvxQuA3UdYZLuqT vmVkH0u5B6Yh6USB91FX84O W32iIKc d9K8dEP0B9HvYFAcsxjbmiq ulZW8GOUuHVLwmM70Ly8rtB ogUd9aHUJoXST0LHLrsQCgI 5HohN3a ZuDlWPUbXXNiS6DpoQIcAAx jV848CYzqEjG7JRQdojTjO4 QtPOFruAavOhC3j5O6Io9IS p44JF76 LM30mPQjv0U8bOW5Z7DnAWZ ooxraoovesRM7WLMhYRMfjH 62Ul8akWskCq6zHUBvUKX5B FRpbWVz S6BrtO1oOuJpXOAlEEZmF6T xtDJqPQftA966VBkhEmT8OO LidsEeT9VdWWPysJdsIsF7o 6D4Gg5B LOlocnt8R7PfClyyqNE+PC9 2EPVoBP63rZWwxSSsb8fhpO b8LhRaTQBdFHT8dJdiBWmft 3JkZXIt Y29 (more content not included)... Normal [facility] ED Clinical Summaryon 2024 ED Clinical Summary [facility] ? Urgent Care [address] [place], [place] [id number] Clinical Summary PERSON INFORMATION Name: SHERLY ERICKSON Age: 24 Years Sex: FEMALE : 2000 MRN: Acct#: Visit Reason: UC - Throat Problem; THROAT PROBLEM LT SIDE Arrival: 09/24/2024 12:32:36 Discharge: 09/24/2024 13:30:00 LOS: 000 00:58 Check In: 09/24/2024 12:32:36 Checkout: 09/24/2024 13:30:00 Address: [address] [facility] [address] PCP: Radha Mendoza MD PROVIDER INFORMATION Provider Role Assigned Unassigned Michaela Early MA ED Nurse 09/24/2024 12:34:37 Larissa Cobb PATHOLOGY SECRETARY/TRANSCRIPTIONIST ED PA 09/24/2024 12:34:58 VITALS INFORMATION Vital [...] Thrush, Adult Follow-Up: With: Address: When: Radha Mendoza MD [address] [place] [address] [phone] In 3 days Comments: You have been [...] next 3-5 days, also f/u with your EARLY CHILDHOOD WORKER, for reevaluation, return to the emergency department/urgent [...] 1:Oral sharon; 2:Pharyngitis Patient Understands: Comment: Normal [facility] ED Patient Summaryon 025 ED Patient Summary [facility] ? Urgent Care [address] [place] [id number] PATIENT DISCHARGE INSTRUCTIONS Patient Information Name: SHERLY ERICKSON Age: 24 Years Date of : 2000 [facility]: [id number] Reason For Visit: UC - Throat Problem; THROAT PROBLEM LT SIDE Arrival Time: 09/24/2024 12:32:36 Primary Care Physician: Radha Mendoza MD Attending Physician: Larissa Cobb Comment: Patient Education With: Address: When: Radha Mendoza MD [address] [place] [id number] In 3 days Comments: You have [...] next 3-5 days, also f/u with your EARLY CHILDHOOD WORKER, for reevaluation, return to the emergency department/urgent [...] these instructions at home: Medicines ? Take czxt-yti-dybhaur and prescription medicines only as told by [...] cool-mist humidi (more content not included)... Normal [facility] POCT Rapid Strepon 5 S. pyogenes Ag IA Ql (Unsp spec) Negative Invalid Interpretation Code [facility] Comment on above: Performed By: #### 9 [id number] #### [facility] (DEFAULT) [address] [place] [address] Urgent Care Recordon 025 Urgent Care Record [facility] ? Urgent Care [address] [place], [place] [id number] PATIENT DISCHARGE INSTRUCTIONS Patient Information Name: SHERLY ERICKSON Age: 24 Years Date of : 2000 Reason For Visit: UC - Throat Problem; THROAT PROBLEM LT SIDE Arrival Time: 09/24/2024 12:32:36 Primary Care Physician: Radha Mendoza MD Attending Physician: Larissa CobbP Comment: Visit Diagnosis: Diagnoses This Visit Oral sharon (B37.0) Pharyngitis (J02.9) UC - Throat Problem ([id number]) If you received any narcotics, sedation, or [...] any legal documents With: Address: When: Radha Mendoza MD [address] [place] [phone] In 3 days Comments: You have been [...] next 3-5 days, also f/u with your EARLY CHILDHOOD WORKER, for reevaluation, return to the emergency department/urgent [...] and treatment you received today in the [facility] were for an urgent problem and are not intended as complete care. It is important for you to follow up with a doctor, nurse practitioner, or physician?s trade sales assistant for ongoing care. If your symptoms [...] so we can reach you if necessary. [facility] has provided you with a complete list of medications post discharge. Please inform your wafer cutter/provider of your visit and for further instruction on these medications. Any specific questions regarding your chronic medications and dosages should be discussed with your primary care physician(s) and/or pharmacist. New Medications [facility] [id number], [address], [place] [id number], [phone] clotrimazole (clotrimazole 10 mg oral lozenge) 1 [...] it is (more content not included)... Normal [facility] Telephone Encounteron 2024 Sand Plant Attendant Authentication Interface Message Text Called patient lmom to call office for sooner appt... we have them available. Thank you Normal [facility] [employer] [facility] SCREEN RAPID (URINE )on 09-10-2024 AMPHETAMINE [...] [facility] COCAINE SCREEN URINE Negative NEGATIVE [facility] METHADONE SCREEN URINE Negative NEGATIVE [facility] METHAMPHETAMINES SCREEN URINE Negative NEGATIVE [facility] OPIATE SCREEN URINE Negative NEGATIVE [facility] OXYCODONE SCREEN URINE Negative NEGATIVE [facility] PHENCYCLIDINE SCREEN URINE Negative NEGATIVE [facility] TRICYCLIC ANTIDEPRESSANT URINE Negative NEGATIVE [facility] US OB 14+ WEEKS ANATOMY SCAN on [...] GDLNon AGE GDLN ACOG TESTING Note . [facility] Comment on above: TESTS RESULT FLAG UN ITS REF RANGE LAB Clinician Provided Cytology Information Source.............Cervix Other.............. No. of containers..01 ThinPrep Vial Age Algo ACOG Crystal... FLAG LEGEND: L-Low Normal,H-High Normal,LL-Alert Low,HH-Alert High <-Panic Low,>-Panic High,A-Abnormal,AA-Critical Abnormal Performed at: 01 [facility] [place] [address] Melissa García MD, IGP, RFX APTIMA HPV ASCU Note . [facility] Comment on above: TESTS RESULT FLAG UN ITS REF RANGE LAB DIAGNOSIS: 02 NEGATIVE FOR INTRAEPITHELIAL LESION OR MALIGNANCY. THIS SPECIMEN WAS RESCREENED PART OF OUR MATTRESS FINISHER PROGRAM. Specimen adequacy: 02 Satisfactory for evaluation. No endocervical component is identified. An endocervical component is not commonly seen in the patient. Performed by: 02 Emilie Frost, Warehouse Order Selector ([facility]) QC reviewed by: 02 Lauren Ness, Supervisory Warehouse Order Selector ([facility]) . 02 Note: Note 02 The [...] Low,>-Panic High,A-Abnormal,AA-Critical Abnormal Performed at: [address] [facility] [address] [place] [address] Melissa García MD, Performed at: =G - [facility] [address] [id number] Mail Superintendent: Melissa García MD, Phone: [phone] Performed at: [facility] [address] [id number] Mail Superintendent: Melissa García MD, Phone: [phone] [facility] RECURRENT VAGINITIS (HTRX)on 08-15-2024 ATOPOBIUM VAGINAE 0 [facility] ATOPOBIUM VAGINAE Not detected [facility] BVAB 2,3 (BACTERIAL VAGINOSIS ASSOCIATED BACTERIA 2, 3); MOBILUNCUS SPP 0 [facility] BVAB 2,3 (BACTERIAL VAGINOSIS ASSOCIATED BACTERIA 2, 3); MOBILUNCUS SPP Not detected [facility] SHARON ALBICANS, PARAPSILOSIS, TROPICALIS 0 [facility] SHARON ALBICANS, PARAPSILOSIS, TROPICALIS Not detected [facility] SHARON GLABRATA 0 [facility] SHARON GLABRATA Not detected [facility] SHARON KRUSEI 0 [facility] SHARON KRUSEI Not detected [facility] CHLAMYDIA TRACHOMATIS 0 [facility] CHLAMYDIA TRACHOMATIS Not detected [facility] GARDNERELLA VAGINALIS 29.341 Abnormal [facility] GARDNERELLA VAGINALIS Detected Abnormal [facility] Interpretation and review of laboratory results Abnormal [facility] MEGASPHAERA (TYPES 1, 2) 0 [facility] MEGASPHAERA (TYPES 1, 2) Not detected [facility] MYCOPLASMA GENITALIUM 0 [facility] MYCOPLASMA GENITALIUM Not detected [facility] NEISSERIA GONORRHOEAE 0 [facility] NEISSERIA GONORRHOEAE Not detected [facility] TRICHOMONAS VAGINALIS 0 [facility] TRICHOMONAS VAGINALIS Not detected [facility] GLUCOSE TOLERANCE 3 HOURon 1 10-11-2023 GLUCOSE TOLERANCE 3 HOUR mg/dL [facility] Comment on above: GLU FAST 83 (<95) Co l: 08/10/24 0708 GLU 1HR 131 (<180) Col: 08/10/24 0812 GLU 2HR 124 (<155) Col: 08/10/24 0912 GLU 3HR 95 (<140) Col: 08/10/24 1013 [facility] Urinalysis macro (dipstick) panel (U)on 08-08-2024 Bilirubin, UA Negative Negative - 4(70) +++ mg/dL [facility] Blood, UA Negative Negative - 50 Osvaldo/mcL [facility] Clarity, UA Clear [facility] Color, UA Yellow [facility] Glucose, UA Negative Negative - 2000(110) ++++ mg/dL [facility] Interpretation and review of laboratory results Normal [facility] Ketones, UA Negative Negative - 160(16) ++++ mg/dL [facility] Leukocytes, UA Negative Negative - 500+++ Edison/mcL [facility] Nitrite, UA Negative Negative - Positive [facility] pH, UA 5.5 5 - 9 [facility] Protein, UA Negative Negative - 2000(20) ++++ mg/dL [facility] Spec Grav, UA 1.02 1 - 1.03 [facility] Urobilinogen, UA 1.0 0.2 - 12 mg/dL [facility] GLUCOSE 1 HOURon 07-31-2024 Glucose [Mass/Vol] 132 mg/dL High NINF - 13 0 mg/dL [facility] Interpretation and review of laboratory results Abnormal [facility] Coding Summaryon 07-16-2024 Coding Summary HTMLBase 64 JrgdpfcjPRu0zCo+PGhlYWQ +VQ9HAGBqX27mlZDkzU9eI1 NMTElOSywgQVBQTElOSyIgb fFaGD6scBByDRLw IC8+MN3mRSHbFcgpwSYfs7T 0tMG0F49byb8jUBdioUP5VS XcLfZurzfcc2ynxAu6MXhkZ mluOyBt TZWbmM67KPO3kX36Ah99sOV naTBgm6qroWd4GwOiRUPuIJ S3rBumTQdci6QnCCXcP89yx KLbs4A8 HGWsnRkseYAuMyUonDW8uF0 aDLzcsiffx1hbwiplEae6mn 33dCEvd4N7gKQ8H7WelbR6W GJvbGQg OfadzDCHvA8liclmq1kcilm vOwWiNQHnFGf0UZj2GKTedM sgLqNkJP17DSV6QJGnkaPoX 2FsLWFs ySwiHzQ8s8B9Wa5AW5BGOkv oC3PIJMJGQMmbbRI+PC90cj 77C2LjVomdFom6ZQMqRNY4j MV3sW5w VCCuNLrjd2Z4bRN3A9ZrqgV pqt1zx8axXSPtDZpyM03imP Pmu6X4RRGptYM5DMQffAixR iBzaG93 Oyc+RLQrhGmmy5HvZxnaf1n bb5wkmHo8UqjfGLZndhCwpI knWOY2k9XtVu0jSFPfyZP5i NQ0vF8t GxEoWjO2YVgxA085WqQwoLA bVaplI27cN0ExoEE+PHRyPj v6POVblNvpKP9hP3OjGWAwf mctbGVm cYoiGJ4lRDWxykzmGQBzcC4 mHZHgD5y5UhLeGlX2CLssA0 ZpAAWlnpqqNx69zP9lHqRbG zA5UFsb K7MdsaH6QEKevREgCUpmQNJ 3C46ku5K0HFNyJRSmLDP7bO V6rX4ojBhqmhuedERtuLkcp mVydGlj ICpnAVmnU017EGWrwHesEwS vZGluZyBEYXRlOiAgMTEvMT EvMjAyNDwvdGQ+YPEyBGJ8a WxlPSAn iFXrNQjxQf1tnBeuvCsqUV9 yXRZaeettYXQemD7eCSMsvE XrwYhdVP6sPACohayfk831I iAxMHB0 VBDxhAHcI6FrdN1eHyFrNYZ vMRTuH6XepARaFGfxL293RQ vrVhJ1YFIwodKnL1PfGTVym WduOiB0 o0R8Cm1En7DezosdF3NubTB bDwEpTfotFJm9L2BhYwvzbR I+TI74SSOmCN47RCo6ZVG6t WxlPSdi CGDeP8QlwS0hNyIqILBaSAR kOyc+PHRhYmxlIHdpZHRoPS bsYAKeXnDbiWuiMD5bXw8vD GVyLWNv mNndsZWuRaEof2ujPIDyOWh eNN6tzKyiU3AuzEP3GIHou3 a7If15S80nQ5UgiLQ+PGNvb WS1hBI6 tZ0hQhQvWdC6HXuqW133KuU nbYWuMayaf2zcc4rfcCv6Kh T2MABfqyYdnDqoUFK5n5CeR j55W63x IHdpZHRoPSIxNSUiIHZhbGl rgj6tnQ3yDf1+EMAjwNS8dV M6fO7xRoWfZtX6PVocI572Y nRvcCIv Giukt9xob2rknWg9RrNmDBL yxiStnVqiDQO5m1LmHo22H2 PysEtpz5SqLyf4mv90sKVlp 0A8pLT3 K3RjHDZweceiyYGrsPuhGG3 pZYZzcthwLXGhuP1jXMOrX6 a0YhHdPzO7UVzkL8OlleB1C GJvbGQg RTGbuZLFtA7wojomj9asrmi nQzFkGGUbYRo4UEx9WKOrbZ lqRyKaLOU2XxT7YKX5jDFkc W1zsZya zuqzjP7zNdf+GWQ3ySTjaQV CEH4fFhqwjQV+FQQuJMA0pY uhNSkfDXRuyO8nRNVjZ7m8X iAwLjA1 UEneN2RzwgM1BYOspMRzHKG mzSWFbI3hkohmp8bjfnnwRv CdIGKnPEh1UKa1DBRcjSrpI iBsZWZ0 QaF2ALV9wWUzlR1ktDclugf znX5lOnb+GqleuOhzHEW2IW m7H6KfYha6KTQnfXqqFV4xd GFkZGlu Zf6skHvzgOoeEJ9vJLRqvub fr892JpDpw1lbJSOxuLCaVU vvQAM8K55kj4I8CQIfAUZsN ME9gTV5 jB0bqLwsxcbidVBwaBpisrV otLmgHWfyCSxaV229GOMweO zdQaUzWTh0R3LqRge4HIXxy OmfMA8b dJCeWLclKb9qbZuogBzkGG2 eUZMkwhnvj385BnYyb8qpGF XztCFoLFieNZU2T61kp9X2M CMwMDAw MOB5bYV8sX5uhStqvxwjhKE mdDsgdmVydGljYWwtYWxpZ2 08UMYfkMppCfJfoWs1N7KsZ ci9YXYb dBfeDX4xbEGlLNwhJn5rgFd bwEzyQN2lSLNovgbma767Fk Nzf7ytEXXaxZSgYPjzNLG3R 10cn9A7 KCAtBMQdTLQ9rDR4oF9znCk nbjogbGVmdDsgdmVydGljYW xgMNlbW332XBRpwXluZoMwv GllbnQg LCxtJAy7I6HkIiwhbAP+PC9 8PMCuSI79tYYxzNExw7kmoP g2BtErXHRwGXV5lMvuETkuo 3JkZXIt Y47shYOae5C6ZLZrwWythMI bPjSidQI5mF5jCOmhfembu6 kpemxxEohgf9hukn09nP26O 29sIHdp ZHRoPSIzMCUiIHZhbGlnbj0 geB7nJm5+BOXnvYU2qRK5uE 0qMYCsZxI7VSnjW550ChDdl CIvPjxj u3nyn8ziwTo7QnS0SBGkkfJ bsKypCZY6q5QxXx07P23oKY dpZHRoPSIyMCUiIHZhbGlnb g1tgA2j Ii8+HMZoaTQ5rPT7yK6dAbH vTzA3IOltU308KdMuhUNtQq mnO75vW8RorFI+YBQiBre8R CBzdHls UQ9uwZXqPCuhCn0dBAF5GjM xHcMcSFctW3AxCKOlmumewj cwgIY4GYThUWKyiD05Wt9nd DogMTBw yYJNaY3jqhpmm9xpunwbCbW qDXZkNQk8NXr8SRSpoRxuOf VdBWX3CkN7WBB3tYQedD7nf Glnbjog rL4sI2HxVDJutuhhNr36iH1 xQyDoPnQ4EHyuPbu+Q1JBV0 ZPUkQsIEJSRUFOTkUgTUlDS EVMTEU8 Z3AuFjd0GMLajSuhYO4zoWJ bSDjsTu3luAborJbkQD7uSC SwckqeLODvmW6vHBPsvRVov XwiBQ8s CJGgfhvtr256KdSlKWR5DST ggOXaC5VjaJ9cCuOzXPPjWR NqT8NodEJlSBtxX291LGerU bJ8XPSf paElF4UjYSNhiGnaUtW5y8W 1Rg0vLm6lVM2rSFj2UG34LY 92oCAye0Y0cQW4G0WhBGIlb mctcmln cJR2QHMiJKIcqF70xBTuADz dEo8gp2B0l529PYWuZTSxgY 02Et6eeYuzYBBuoOSMyF8vk qmvc6fs pdwfAkVfDCDxEGu6SLy1BLW lwFkrXxZdHIL9VkM6LZI6hK BytC0zeBqnzydgmX1tAoa+M jYgWWVh fcC9O2NiZza0GHPlhUnpVS8 dwDNpOPnbAg4lyOwzbDoiKQ 7pKOZswisqGYVmwC5zDMDky HRvbTog AS0vQXAstipnm564OyWnSQS 2LFXxnEJvX9ObhP6yNlOvCU PuCVChB8DxdKDiBRdfS600Z GxlZnQ7 NVXuevDeU7FzAWOfyWfmGfH 4s5U1Ey3XGD2JKJY2Y2VeJj j0FPHqtElbGZ7vpNBlZZbiC v9sfBsd sGnzPV3zJARkfxceSWIclD7 gPEApwVLfbJxkUY0mGFTvsy jea382OvBuOEZ9HHKytZPbS 7QswQ2w FyDqYJFgECUhU2LfyTBiPYr iI794EBdvHiB7PDZwgjDkW2 PcYAJioZyxNrF8f4K0If9PR DwvdGQ+ XI50cf48Y2XeEocfHkr9TGW yYYA9wVE0tB9dGNUyYDgwl8 C1aEA6G6XycrTwlg3fk6miJ XBzZTog V22rlRSzz5R1YFNkgKH9MLC lwPppVyIxfR21Nxf+PGNvbG svl9LeNsonh1ifq5zuyMy3Q jMwJSIg avJyuUqiUDX3c4ItLd92N29 sIHdpZHRoPSIzMCUiIHZhbG myos1snZ5cWt2+IQUynVR7o QC1lD7k FtMaLgP9PIpbQ759LlHlwYO eRwlvm5faf7sruOk0MuGfIO IbmmRcxDwpLDG4t5LkUq29C 2NvbGdy n2UnSxp0qq07pLPri5K7zGO 9J3LrYSGemnqsaSBqkHbzEO 3fXMNdghyaKXTreN6pQGPqW 5b2GqAq XgI4IBfzP3QtsmU3CDMoaVS xJDIpuENDyL7nqjiax5czvc gdKsWzKYQaAMd4KGj0ZGPmo WduOiBs RQJ0QpP1JQB6qGKipA8nmNi fqtwwiG2lHou+SSx2j6psmZ EyKA2lyIT5IK53XX34dEUhk 5C8zUG8 U4TnVRBxreilvesluVK4MDG xZCDyaS48Cw6oxKcjLr6iEV UdYAX5OKYbcKEqM5VthN8nU iAjMDAw HMJaU2YpfURyQUkwC165YGw oGeT3CGWoweCiU3SdDNFxzC phCiE5a5J7Ur1ASJ13PR67D T56tTXk w7F0vIZ1Z7QcMJEcsahnnxn prGA8XWHrSFPucQ49Pj6coL wqEg2rXWSrBPX5TBUkcIKyL 3HlnP7k LuEmHCQsESXoO3AzhDScADr yH020PBabCyT5MGVfyzBbK7 ZgNLHfoGhwSlV2z5A7Ms3DE s00AB10 CB86jEXmk7C8aGA3S4JeFRO vcwkdrofykZB8OQFsUNGtkJ 59Sy7xqYdcVb1ySXChCGL0N FRpbWVz R8DrfA1pJqZdVSJpLSMgS6E juWWjYFkcW984HXqzBpH2YG AfdrDpN7JoZQXudNhbWyT6q 6R7Nk7I FYhleuq0I0TiTpzmsIH+PC9 6ZTGlKL76wNUfzANcs1ndhB v7QcTgKMXlWUT3fJqgVPiuf 3JkZXIt Y29 (more content not included)... Normal [facility] Urinalysis macro (dipstick) panel (U)on 07-10-2024 Bilirubin, UA Negative Negative - 4(70) +++ mg/dL [facility] Blood, UA Negative Negative - 50 Osvaldo/mcL [facility] Clarity, UA Clear [facility] Color, UA Yellow [facility] Glucose, UA Negative Negative - 1999(110) ++++ mg/dL [facility] Interpretation and review of laboratory results Abnormal [facility] Ketones, UA Negative Negative - 160(16) ++++ mg/dL [facility] Leukocytes, UA Positive Negative - 500+++ Edison/mcL [facility] Comment on above: small Nitrite, UA Negative Negative - Positive [facility] pH, UA 7 5 - 9 [facility] Protein, UA Negative Negative - 1999(20) ++++ mg/dL [facility] Spec Grav, UA 1.025 1 - 1.03 [facility] Urobilinogen, UA 1.0 0.2 - 12 mg/dL [facility] ED Clinical Summaryon 2023 ED Clinical Summary [facility] ? Urgent Care [address] [place] [address] Clinical Summary PERSON INFORMATION Name: SHERLY ERICKSON Age: 24 Years Sex: FEMALE : 2000 MRN: Acct#: Visit Reason: Vaginal discharge; VAGINAL ITCHING/DISCHARGE Arrival: 07/05/2024 10:15:34 Discharge: 07/05/2024 10:59:00 LOS: 000 00:44 Check In: 07/05/2024 10:15:34 Checkout: 07/05/2024 10:59:00 Address: [address] [place], [place] [id number] PCP: Radha Mendoza MD PROVIDER INFORMATION Provider Role Assigned Unassigned [...] Location: Home PATIENT EDUCATION INFORMATION Instructions: Vaginitis, Itii-de-Zpxm Follow-Up: With: Address: When: Radha Mendoza [address] [id number] Business (1) Within 5 to 7 days With: Address: When: [address] [place] [address] Business (1) Within 1 to 2 days DIAGNOSIS: Vaginitis Patient Understands: Yes - Patient/family/caregive r verbalizes understanding of instructions given Comment: Normal [facility] ED Patient Summaryon 024 ED Patient Summary [facility] ? Urgent Care [address] [place] [address] PATIENT DISCHARGE INSTRUCTIONS Patient Information Name: SHERLY ERICKSON Age: 24 Years Date of : 2000 Reason For Visit: Vaginal discharge; VAGINAL ITCHING/DISCHARGE Arrival Time: 07/05/2024 10:15:34 Primary Care Physician: Radha Mendoza MD Attending Physician: Spenser Fang Comment: Patient Education With: Address: When: Radha Mendoza [address] [place] [address] Business (1) Within 5 to 7 days With: Address: When: [address] [place] [address] Business (1) Within 1 to [...] and use condoms. General instructions ? Take wsqz-iwl-dltngnl and prescription medicines only as told by [...] provider. Document Revised: 02/19/2021 Document Reviewed: 02/19/2021 [employer] Patient Education ? 2023 [employer] Medication Information: The exam and treatment you received today in the [facility] Emergency Department were for an urgent problem and are not intended as complete care. It is important for you to follow up with a doctor, nurse practitioner, or physician?s trade sales assistant for ongoing care. If your symptoms become worse or you do not improve as expected and you are unable to reach your usual health care provider, you should return to the Emergency Department, we are available 24 hours a day. For those (more content not included)... Normal [facility] Urgent Care Note- Provideron 07-05-2024 Urgent Care Note- Provider Patient: SHERLY ERICKSON Age: 24 years Sex: FEMALE : 2000 [...] History Medical history: Resolved Ankle fracture, left (25830744): Resolved. 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 Surgical history: Cholecystectomy (81539926).. Family history: Anxiety Father Sister Diabetes mellitus [...] doctor a (more content not included)... Normal [facility] Urgent Care Recordon 024 Urgent Care Record [facility] ? Urgent Care [address] [place] [address] PATIENT DISCHARGE INSTRUCTIONS Patient Information Name: SHERLY ERICKSON Age: 24 Years Date of : 2000 Reason For Visit: Vaginal discharge; VAGINAL ITCHING/DISCHARGE Arrival Time: 07/05/2024 10:15:34 Primary Care Physician: Radha Mendoza MD Attending Physician: Spenser Fang Comment: Visit Diagnosis: Diagnoses This Visit Vaginal discharge (260200268) Vaginitis (N76.0) If you received any narcotics, [...] any legal documents With: Address: When: Radha Mendoza [address] [place] [address] Business (1) Within 5 to 7 days With: Address: When: COLE [address]ONSO [address] [place] [address] Business (1) Within 1 to 2 days Medication Information: The exam and treatment you received today in the [facility] Urgent [facility] were for an urgent problem and are not intended as complete care. It is important for you to follow up with a doctor, nurse practitioner, or physician?s trade sales assistant for ongoing care. If your symptoms [...] so we can reach you if necessary. [facility] has provided you with a complete list of medications post discharge. Please inform your wafer cutter/provider of your visit and for further instruction on these medications. Any specific questions regarding your chronic medications and dosages should be discussed with your primary care physician(s) and/or pharmacist. New Medications [facility] [id number], [address] [place], [place] [id number], [phone] terconazole topical (terconazole 0.4% vaginal cream) 1 [...] ? Eating food (more content not included)... [facility] ALL CBC WITH AUTO DIFFon BASOPHILS ABSOLUTE AUTO 0 [facility] Basophils/100 WBC (Bld) 0.3 % 0.2 - 2.0 % [facility] Eosinophils/100 WBC (Bld) 1.2 % 0.9 - 7.0 % [facility] Erythrocyte distribution width (RBC) [Ratio] 12.9 % 11.0 - 15.0 % [facility] Hematocrit (Bld) [Volume fraction] 40.3 % 36.0 - 48.0 % [facility] Hemoglobin (Bld) [Mass/Vol] 13.7 g/dL 12.0 - 16.0 g/dL [facility] IMMATURE GRANULOCYTES ABS AUTO 0.06 High [facility] Immature granulocytes/100 WBC (Bld) 0.5 % 0.0 - 0.5 % [facility] Interpretation and review of laboratory results Abnormal [facility] LYMPHOCYTES ABSOLUTE AUTO 2.5 [facility] Lymphocytes/100 WBC (Bld) 21.2 % 20.5 - 60.0 % [facility] MCH (RBC) [Entitic mass] 29 pg 26.7 - 34.0 pg [facility] MCHC (RBC) [Mass/Vol] 34 g/dL 29.9 - 35.2 g/dL [facility] MCV (RBC) [Entitic vol] 85.2 fL 81.0 - 99.0 fL [facility] MONOCYTES ABSOLUTE AUTO 0.4 [facility] Monocytes/100 WBC (Bld) 3.3 % 1.7 - 12.0 % [facility] NEUTROPHILS ABSOLUTE AUTO 8.7 High [facility] Neutrophils/100 WBC (Bld) 73.5 % 43.0 - 75.0 % [facility] Platelet mean volume (Bld) [Entitic vol] 9.5 fL 9.5 - 13.5 fL [facility] TBH EO # 0.1 [facility] TBH PLT [address] [facility] RBC 4.73 [facility] TB WBC 11.8 High [facility] CL[facility]IS[facility] Outside Recordson 06-11-2024 Outside Records [id number] [facility] Coding Summaryon 06-08-2024 Coding Summary [facility] GkxudzvyBJg0yCz+PGhlYWQ +RP1OHWUmT14blMGntV4oF3 NMTElOSywgQVBQTElOSyIgb sNoRT7wnCYoXGUt IC8+MG8lWOJlEqtrsOFic6A 1jWL5W57ctw7jOQuohTP5DF CwOsEyjkbod2yhhLa7BLhkG mluOyBt GJWjcW67LMM5wU86Ya26bVQ pwKCoa3pbyWb4RsVmXJYyIZ U6yKwiOCkwm5VtSRVkA28kc RZsh3Q6 WFInnJvnwGDfPpFwxMG0zP3 tPQoofoeqt7lbyxbaEjs6ag 90iUKqy6W6bMD1L0WfxsP5J GJvbGQg QpuseXIEyD4jjmgxw6txvph zGjNfGDTsOWt1YCy0FVHaiV oaJnCaMX36YFV1NKDwynTeN 2FsLWFs hHdbVfS2s8C7Fp8BD3IUHju bQ4MDFGYADZncdXF+PC90cj 83E2FjNbenEzq6EEAlREP3t YJ4yZ7c DQGkJHklo0L1oFD6L5JuzrV pdd6cz8fnHUJhOVygE46rlK Wik2D0DWSrwVQ3ZXSypKihY iBzaG93 Oyc+KIMaxPsrd6MnVhqps0f md1fikNv8XoghHMDofhJtsZ apABD4e3RnRu2iLNMnrZZ0u OU8pM2i UjMtCeZ3ADogM523JeMubPY gAmmoA46oC2YsvLY+PHRyPj j2KSMdgNneDU4aV0MwZRBvj mctbGVm lVxlKU2mFOIflddzMCLntB3 eWPZbJ1z9ExCiVoC5GQiwA4 ItZIXhphvdHi82xK1fCdWkV bD7GAlw K8LzocA4SWDqmRUtNOkxNCH 0U10if3F6GAHwKPYuUUD1cG G4cQ8zuLxggsltwEIsyPmfb mVydGlj JNjiQHraQ388KBUwpSlmBjP vZGluZyBEYXRlOiAgMTAvMD QvMjAyNDwvdGQ+PVRwWNV2m WxlPSAn kXKnLIopBw0dnDopkFiaTM8 rKUDhfetcMHDueS8cKIJthO BzmLhlZW0aMRRzbhkek701P iAxMHB0 PDRxvDSaJ8CacN1vZrWfZQK uQIDjI9MmiOCzYZtsF994RU bqFrW0PVAxdtOyP2SnMVXih WduOiB0 y6Z9Wq2Gk5FwbjlpS8TktVU vYyUeClapGOr4Y6RsNtdevF I+LV39KXKuRI55FKg2PJV1m WxlPSdi BUQkH1BpwD9sFzEpQYQkBUX kOyc+PHRhYmxlIHdpZHRoPS niUETfDzMswVxrPU0dFl0fN GVyLWNv tNqwgLMsHxDzd0pvBLIwKYt tFY7beGhtU8EqeVN5IREux0 k2Ix42T51iM7VezZK+PGNvb BS8rME8 tF4tBbFoOmM2GQyrW183RaL hwMMmSnifl8nxd3aqiIt3Bj B7YTFanhLvzIssZYH4c0JtW m63I10d IHdpZHRoPSIxNSUiIHZhbGl lyw7nwA6jHw6+CFVskYX8vV Z0nF6wTyHmKaA8RFtuF754N nRvcCIv Aqlfb4syh2xjuHc9ZjVzVBW wnfAcaTroOLS5y4UzJv25Y0 MapWbnh8DyJdx6ju09hTYxf 0H0rQQ9 J5GhOSNzzsdigOUbuBtmRM9 yZMJreodhMXOjyD6tRSUdW9 r7VeUyBrW9EMhmY1ZsnvF6Z GJvbGQg BOLklYKFbK8snsgwa8frhht vXhWvDTEpVWz9NZa3EMOvcW trTtEySFA2OqS9OLJ7kRPgo F9tmJwx ionjeJ9sKrh+MAK8aGTfmQG RHY5pKnapzAZ+FHDcEGV1eK scXDlwMAJjsG0gLNYkC4j9F iAwLjA1 ACzmN5KfftI0IUXnvMReCAX zyGKDsV6gpyilt8eflgfzNb SdOWLfUDj0JZw0LMQoxSmdS iBsZWZ0 TiT6SDT6pMHavE3zcKvuiug ltQ6lFrn+ZunjrQclVLL9VC k4Z6HdUan7ZRXwnCcbNM3yt GFkZGlu In9bwNeggPajCV5nHNHhlvb ic362AcKnr3fqRFQadEJaXB ljRVI8B87np8S3OHTpKFIzA YW5qOC9 oL9qxWuetlqfuOWjtRytqlZ ppZbhKUqsZSeuO153TCOqsC rwMjSnFRr1M9UoOjr7JXXew GufQO8v wCAmWCllYa9wiPuvoFrnLM5 tCJIjpetgw096OqLot6xpOQ OxpBYgXAkcNOX3J85ra6L9C CMwMDAw DBJ3yKT3yP1klQcgelazgCQ mdDsgdmVydGljYWwtYWxpZ2 73SXByeJvrSxLlrQk2U4PnL kz0FIKx tHnuZK5jgQOuBIqhRe1dkNx oeVibNN8pHBCrlnljq785Qi Tzd4prNPBqkFAoAEqqFOA5F 36wp6F2 GRQrGNEbGYZ6yJT6lO5grAo nbjogbGVmdDsgdmVydGljYW wnNChwW179FWHqyRdkWpSfr GllbnQg VDmlEPf4K1OoMhgkpPV+PC9 4GDJyOF86oVKaxOUca4vloJ k1EhRjURUlXBK2yLksAEzis 3JkZXIt B18peEAge1G1UTZtiWduqOP vNmQnuKB1cW5qDPfmqxypf4 ctkzvyGzwev2arff33uT56U 29sIHdp ZHRoPSIzMCUiIHZhbGlnbj0 igM6jJp4+AGOehQO1oLB1gI 8hAUYsDzL3OMugE949RySjm CIvPjxj i1inn4isvPc5MjQ1WOXiwtI gbNeaUYU3z7LwRt59X77xAJ dpZHRoPSIyMCUiIHZhbGlnb o8pnK3i Ii8+RTJiqER6wRY4sN1mPtZ eHcQ1AHoyW062NpDdaUNbSr nvU22rL5NfmXP+ONDvDvh9A CBzdHls LD6ehPUqUSvfFw8tRLX8QbD wXmKxFFfwD8DkEYPmxvslph utcJU7WNAyITVquP61Fo7kg DogMTBw hWXQdJ0rfgutr7wmzmqqMgM zCSRnIPi7LUo9UUXjaQtxZy IbQRH7RmF1KGK1vKZswX5kt Glnbjog cR2xP6FxZTDlrvrhOl78nS7 rCgMhRgK5GNrsCel+Q1JBV0 ZPUkQsIEJSRUFOTkUgTUlDS EVMTEU8 I7YdQyn6AYXxsKkxGM1ryPW gRUwsIv8sgEhpjFxiKE2eGU SuhjniYRQsuC3lIQBioGCcp LirHC7j SZImyuarc219ZlIbNMX9KCI gwGVkH1OapY3oRhGmKNHzSV JiS1WrsKDeDGvdV698NOijB nJ1SSZh uuMgA2DaXVUhmAvgYyD4t9V 5Bg5kLe6uBU2mVJx0GX89KQ 83uRKsu0G3fGO8C8DvYABgo mctcmln tMV1SJItELZzbT58nRUjOZe cJj9gm9D7j133UEXwEBSjyM 52Ml5tyGckJTGsvMNKdZ3dl puvx1rx vpcwUqCwQOQrLZp0ZBl1MAU nbKsjReFhHEM8DlH2CIN7wG JacZ5diEcuvmmneW6qDtj+M jYgWWVh wyI6Q7FkEna1CXAfkWgmEL8 rcOLcKOuaIu8vnLopwPtmRV 1uIGSftazrTQOqeX8dEMVcd HRvbTog IN1oCUAiwyhrm960DuRzXXQ 1WKQefEVwE7KuxQ5tEjJkMC EbQIQmZ9HzsXDxVJioF930G GxlZnQ7 ZRIybeYyA1FdLMFivPsyAxA 4b0M3Jj5TXH7PHOT6E1BaFc b0YPAcuOteTE3eqCXgYTntI e8dnFmj tDzeMU6xEBHnrpdhCYCciQ8 ySSBxaNTyxAtbAD0lKRBkyg zlq873DmScWOS5HPGneYAdY 3NkeP7t FfYmVVLuUDBuL3KpyZMtHUt mY699DKliAxR3PRRwigKpQ1 ErTYGduMnsXjM7l9G8Gi8Lf SEpR9Qj C3y3G0FtWjktvZI+CI11ZRN yQG70qDDxzDBxm7uqtDs4Oo RsKDXdQWB8mYebQLkzr7HjN GKmU78z lNBst2W2MFRqsSkasMFfRmJ xzXH5wB7dQRhplutft2fwfl ntXrfag3ehdp26jN41Q49qJ HdpZHRo RDQoGQNfSNKynSgtww2miY9 wIi8+SODrbHE0oTV1wJ9sYw EtYaV7IWciZ363CoYmbKWhZ kqnk5di x7ujaFp5HkCeLNBithLiuGb vTQO8l7LrPa66I12vVFfbEP ZdBEOiZIQkAUOlfZemgp7pd G9wIi8+ KM3rh4izza25wB33xOQ+PHR dINR0nKrhYOmeMEDnhS0jTG lwDdP1CWUcRjVwzK96tIPtK FpoQg7b xIvynVihAD0dCNJnqddta33 1WuQam6kgOVSagFGlIJdcQY V6D02lg5T9KCYoQTLmEIF1q JE5fI4t bGlnbjogbGVmdDsgdmVydGl tJYxaOUyqT475NKDetYnfZu WkyWIrU3cfeaPKHQ2bTynsb GQ+PHRk KVX5jLuyBQjsLBXyuL7lNPV eP2l9PdJfMaX2GUygR0Uwrz T7JBYdcNNsLBYaiHXEyD4yg hiyr5pw icogXeNlALHbTPg5EId4MSM xiQkfIyGxXTI1VlN4VDM6wX SezH7woDaejeskcQ5rJag+R klOOjwv dGQ+SQOvBLE5mXnsRMubJOP auS1tDVEpG8n2XdMiVdQ8CS muC2ShnyD5VKLnbWNaNGTwa JDMoB8s kwahy8zoydfiXsQtCFWaCCl 2ECl4HKCoaPvuKmWlOOZ7Lb J9SQO0xVZjvD1saOaneefdq G9wOyc+ TVJOOjwvdGQ+OKIpDKO3pUg nQZkuKIRnoD6fPWOnK1d8Uh TbQjI3GDjcA2SkjjY6XMKml GQgMTBw zQATbE9ablwqz1rvztyxGqR eYWFxQNp8LAi1OYHygIapCx VyMAV8ToE9TLC0zNSpfF1bm Glnbjog uD7wJns+GWW2HWN8NZ39XE5 8F1UhFgptrAXywNG+PHRhYm xlIHdpZHRoPScxMDAlJyBzd EbqIJ5t Ym9 (more content not included)... Normal [facility] HCG ( test) Ql (U)o n 06-07-2024 Interpretation and review of laboratory results Abnormal [facility] Preg Test, Ur Positive [facility] Urinalysis macro (dipstick) panel (U)on 06-07-2024 Bilirubin, UA Negative Negative - 4(70) +++ mg/dL [facility] Blood, UA Negative Negative - 50 Osvaldo/mcL [facility] Clarity, UA Clear [facility] Color, UA Yellow [facility] Glucose, UA Negative Negative - 1999(110) ++++ mg/dL [facility] Interpretation and review of laboratory results Abnormal [facility] Ketones, UA Negative Negative - 160(16) ++++ mg/dL [facility] Leukocytes, UA Trace Negative - 500+++ Edison/mcL [facility] Nitrite, UA Negative Negative - Positive [facility] pH, UA 7.5 5 - 9 [facility] Protein, UA Negative Negative - 1999(20) ++++ mg/dL [facility] Spec Grav, UA 1.020 1 - 1.03 [facility] Urobilinogen, UA 0.2 0.2 - 12 mg/dL [facility] Coding Summaryon 06-05-2024 Coding Summary HTMLBase 64 ZvjrulvwCJj9lAk+PGhlYWQ +UU3UYWPdK67wqXHpmT9zZ1 NMTElOSywgQVBQTElOSyIgb gNoMS6rdKGyBPSt IC8+UM4nYMVxXsjwmWRhj4M 5mOO0A55tgb1nFOprdKP4QQ HhTrIkzquew5egtRy6MGdqM mluOyBt SUFvdC72KPA3hM16Zc31tTI ujHZwv1hbtPs2RdPkXOAlXP I1oBvxKTwlg6FsTEYjC97ai IIin9P8 DCQelYqlgKWzLrQvqXZ1oG8 yGSyctbmgl2yyduigKub6kx 80jSRvt0C5qMI1F0YhumY9R GJvbGQg OlnjzCQIqW3nnotfz9mjbox fSjXfQJZrAJc7MMu9WAWtzN zqHqImMB23ABK6GYOdokXyP 2FsLWFs cUssKcS6d0V9Ix2YD0NQEbf pF8DWFCFXOQfexXS+PC90cj 54N5DmSdzlWvr7PUNsWQG8t KU3jN3m PDPuULeso6L8bZQ4I6BqitM rve8ff6rtWWUkXPtuL45uvS Dvt7A3ENIkvKZ7PRZeeIslD iBzaG93 Oyc+QIJmtXmuj7CbAbutu6p xo5wadDh8GmoaBYWbitRsoP flUDU8e0YlVt8uUIPsiRO0s YC2mP0x IqLsIcP1CLlfX848SxZeiPR tXhehH02fP4XkcRX+PHRyPj z0TOMcbXwpFL3kT4XqOLBrg mctbGVm bZzkQE1kILXlqbggLKTaiM8 tOBOiH9l8PzGkDeH4VQmhO5 ArFSZtholgOd34yX5pItAwD kO3GCzg Z9QenaQ2AWIgjYEfVHgsHAT 0U11wj1R0HYRhXUZqDET7nU K9zM4uzKzbarnalFGrgKvur mVydGlj TLotVEoiL068IWMlnPtfBwC vZGluZyBEYXRlOiAgMTAvMD EvMjAyNDwvdGQ+NIGqILJ5b WxlPSAn mQFsPCiqZh4ehSltaZomND2 nOIMmzjwaVMJmuX1uTCDprP UdgCqxGO8uDXOotwhiq268R iAxMHB0 MNMllXSbX2JntN3cIiHjZJD zSCGeJ7ObjAKrNAkuG979YU ofUlE8TLYcfxIlF8BiADAbr WduOiB0 c6G2Gc6Wp4ImbhawV2NlmKL yOyKlOzziVQn4E0EgIoigjD I+SZ25UWZmSY44TQg5LPN5e WxlPSdi DWLjU7CqbN2aXpXiIIMuNCH kOyc+PHRhYmxlIHdpZHRoPS hnGZBnOdMriYfnIO8iGx2gM GVyLWNv nQfndFZoTdWok8beZLCyKGs kJF4awDjjF2WvqLU8VLFoq6 r3Ag91Y36rY9CjaHM+PGNvb OV1lPP4 zQ8xVsGlXiX3WPhpC286PoV kwWRsJvsyk9apd8muvZq9Sb P5JOBgdrWywSrhYCT3a0UlZ t56V56j IHdpZHRoPSIxNSUiIHZhbGl ced7lbW9tIm1+YFMjgAH0fE U6vW0iMbBjYmO7UYjsB325G nRvcCIv Pabzs3dej4xgfLh8RrLhHFI oltVgxWpaWPF0i7QrMe56K3 SxtVnou8AeYxq6nj79aPGct 3B4mQW6 G5SsXIYdwdwggVEacKmdHK9 uWQIhuuxqPARupZ7fLUXtF1 j9DwLbCmJ7WJlxK1InjsO7V GJvbGQg PPAscSSRgW0nxnxjv7mdpns fPyVbBOItDLj3XZi8LJAnoN saAgTvUZG7ArC0GFB4mASoz C0acTik jjgdzY5cYuw+UKF8xAOwoUA KEP2hAjgqjFR+WZOmXHA4zA caWHxmXEAasF8aKDUcQ9d1P iAwLjA1 BCugQ2GyeaE3JIHrqQVrYJL udEAWkE9ilwgmj6cdqbbyEp QyOIFsIKd7GMp5KLFjvPqlM iBsZWZ0 HtB0WUX5xRZuhA1rrVrcglg vaF1fFdn+ZirjsJzgTFG4DJ u3V2QuBuc8XXXkkAtdZG9gv GFkZGlu Ey0ixKulsRtbQE1sJJIduyv sx690BsUow0xwUASwkGMnPF mvIQW5J10aj9M5AYKbVRFrE KA0lHP9 nP1apLdqbhrrvFHffEqyqgY phAvgKOakRVbcY163WAMugE uaKxAfBTh3X9EoVwh6CXTqa EkyKY8k pRTjIVnjKa8fhXruaFiqTI2 aUCHevijdc487WwMme5mlXE InhUNcOSwnSKS6Z89pd8G0M CMwMDAw KRO2bMT0iN2uzTwgrlgknZZ mdDsgdmVydGljYWwtYWxpZ2 58FTVpwXbiNdOvgHs1Q9MmJ cw2OBPl kUopCP7cxLXxTQxbCp1ktLi rfXcfTS0sVELgeofbr604Dx Rjf5zkHNKbrYUiOXjmHOE6V 42tk4D6 VEFsKCMxTUM7xZY4uX3iwXh nbjogbGVmdDsgdmVydGljYW hiPIhwK524VJGuwOvyOlDhd GllbnQg QKafWZb8C9YfOgfnmEC+PC9 3TNSkSD23kQKztORft2jfiY u9LfJqSEVrQXQ6gNkkPVkkn 3JkZXIt D85yhPKhr8F8JWQjcVgyuPS jXvDaqFF1jF8rZGtnfvdly2 ftatpyWyjqn1kaji24cH01H 29sIHdp ZHRoPSIzMCUiIHZhbGlnbj0 vtZ6dOi8+PYSehDB9aBI0jH 4qFNDgQyH2URyxQ151YdYgw CIvPjxj z5wic8sxtBm2AyS7BEIkexR rkMpqKHB6q2BqQn44W68sOS dpZHRoPSIyMCUiIHZhbGlnb n0neJ9a Ii8+APQwsKF0eRM8yC6oXrZ yLqM5XCagU707KgKplHAhIw vlS94zV7QewRG+SWDvLlo5T CBzdHls GR3kbWTpUYpwJn5hAYG1ZlO jFsRsHUjyR0ZjDGGbhsnzjw ajhUA6PJZnXCZslE17Cp3qw DogMTBw sYBZoO3pqifxq3qxnwaoQyD nBRDqKOc5PPd7SCCnnViaOq LkJBS4OfI2XCP1yQEhwI4kp Glnbjog bV1vV5PbOSXmnnzeXi12vU0 vCdArJdE1GFtrKqe+Q1JBV0 ZPUkQsIEJSRUFOTkUgTUlDS EVMTEU8 X0EqDpv6JOOryRdtKB1qhHE oDBveQd9smQgjxEjcOF7rDP CfbxkuEBRusC2vHMKbuPJhk SqxPY8v IPDmehsuq645SzQlBTI4RVS gpPBdH6DbsO4gVcRdVUCpHR KrN7NbbTHkEByzN234LBuaS fX0INWd wrXtE5QfKSHjxYykNjS8e5M 1Jm6iRd2tRM8zYTn6ET57WI 00hVHvp8V5mNR1K4UvVDYwo mctcmln zLP9MBHpCAGdxT77fNYmWDr gAy0id9H6j269PTIyVVWjrU 64Lf1bzPopQLBunJCBxF8cz wmyf1yi qdqhBkLvOIAhQHk6ZHh9GZM jzQvmYjIgSVV9OaQ7DVR7hV MciU6ksIvwvbjmrB8ySmc+M jYgWWVh hjE7F9QqAin3YZTquXgqKJ8 ekXDnCSonSs6ptJdjcHthPR 0iLCEvawjgFTNvmB9xMEPcm HRvbTog OL6wVUUepxwuv148NbZxKPC 1FEIfoXThB4ZqsZ0kQxCdXI GkEOQaP7XneHEoGEoiW002I GxlZnQ7 MSZbbsXgL4PsSYTpqByiAmI 0y3F0Qm5ZSF4ULJW8U5BwFs e6XYQcxPufVV1kcMNkRJaoI g2dnMkb uXmuOT1iOEPwjqzxMHGrkC7 yPWJmoYTzaBekDP9vLGZgsc fyd620XvTaTJP6TWReeOFkL 9HktY3n LwCvOPMuVWHoF0WfyGDtNCg uY140UHryRlR9RAJnviHdS6 JkCDNjcWflWaB8n3D2Gb6NO DwvdGQ+ RT43lt14K3OuSogfLlj9PRH sVXW2mHX3mL8hDSNdPAown5 X0pKS3Z1PfxuAkye0vn9jqT XBzZTog Z59qsZVjj1C6EJUufKH9TGU mwKtoUsXyfQ36Wzr+PGNvbG ubu7JzGkqdy5ran6bdlWv6T jMwJSIg kkVuwBmvBOT8a6CzOu23A47 sIHdpZHRoPSIzMCUiIHZhbG sojl0cbJ5uYv5+WIQzhIE7o AF6sR0s JgJkAdU8EJhzS674UdNyeZQ cGxojl9dpz0wbmUw3OcAzXV PpiiFwaLvqMHC8j6FiBr76P 2NvbGdy w7CiEso0fr81eDJau9S4mDV 5Q5RtHCMqvqpigDKhqZbrYY 2hGILqtfrnMYUkuQ3wDSLcX 7x7FeTo IwN5TWaoQ9LratP9DNRhfZL oZLTohGSDfK9qwgorf4abzn egGcMmWEEfKNl3WUm7NQIsz WduOiBs HRC6GdH8IBN5dJHyqY8asBw ayqwwlC2kThx+NEs2u8gxdG PaNV7wnJH7HV73ZE62dOIwp 3N0aFW6 H8VyFFEzxhkhkrqvkVD9CHR vDFYbgT60Cs5yxUtsUd1nCD PlWSA5ZFSuoKCuA0EnuF9eK iAjMDAw UUYjQ0HzxXTuDNqqP867NXx cCdY9TUDxnrJwW1CsUBZzvU lsUyH5v1Z8Mm6HTV09US62W I91kGJr b5Y1vIH9J5ErISYzwleyhhk okQH9JIZmQZPwbW59Aj2lpI guWt3hZXSrFSK3BTHqlELvI 9AmpH6f OkSzRWMnKSIrH7SwfOHpKWo dC123THuzCdJ9DSHyqyIbA3 XbQCQdhRifLdM4v7P8Ae5CA b14SO50 JL57cVTfh3H3tFD5V1UoDZX tloozianhmBW0IUPnSTCwjG 44Bf7riZbuGh7lWDYvHCA8W FRpbWVz R8VkiN1tCzKkYEAbGRKyD0A znLTyYOfcO832PJodIxE6BI JqsaYxD0YsAHUlnYflRlR6n 4Z1Hr0R THcrlyy3E1ScXevbtNI+PC9 7SQEjDY02cCViqZTxk5jmxQ d2ZoIiXVIwFSV4cFxgHLkjg 3JkZXIt Y29 (more content not included)... Normal [facility] Office/Clinic Noteon 06-01- 024 Office/Clinic Note Patient: SHERLY ERICKSON Age: 24 years Sex: FEMALE : 2000 Associated Diagnoses: Sciatica of left side Author: Radha Mendoza MD A History of Present Illness 24-year-old [...] 113.040 kg Body Mass Index 39.11 kg/m2 [place] Body Weight Calculated 61.437 kg BSA Measured 2.31 m2 General: Alert and oriented, No acute distress. Musculoskeletal: Positive point tenderness over the left gluteal region as compared to the right. Positive straight leg raise. Positive piriformis muscle sign with external rotation of the hip with adduction towards the opposite shoulder.. Impression and Plan Diagnosis Sciatica of left side ([id number] M54.32). Plan: Discussed with patient stretches she can do to help with her sciatica. They were demonstrated in the office. Will hold off on any steroids.. Orders Orders Evaluation and Management: [id number] Office visit - established pt, Level 3 (Order): 06/01/2024 13:28 EDT, Qty: 1, Sciatica of left side. [Electronically Signed on: 06/01/2024 13:56 EDT] Radha Mendoza MD [Verified on: 06/01/2024 13:56 EDT] Jason MCNEAL, Radha Santo Normal [facility] .Auto Diff 105-28-2024 Auto Clinch % 5 % Normal 1-12 [facility] Comment on above: Performed By: #### 1 [id number], 8119008, 3165080, [id number] ####[facility] (DEFAULT)[address] [place] [address] 39434 Baso Abs# 0.1 x10 Normal 0.0-0.2 [facility] Comment on above: Performed By: #### 1 8157252, 8842688, 3075569, [id number] ####[facility] (DEFAULT)[address] [place] [address] Basophils/100 WBC (Bld) 0.6 % Normal 0.2-2.0 [facility] Comment on above: Performed By: #### 1 2593097, 3328457, 2374227, [id number] ####[facility] (DEFAULT)[address] [place] [address] Eos Abs# 0.3 x10 Normal 0.0-0.4 [facility] Comment on above: Performed By: #### 1 1446575, 2869481, 4992304, [id number] ####[facility] (DEFAULT)[address] [place] [address] 63375 Eosinophils/100 WBC (Bld) 2.5 % Normal 0.9-4.0 [facility] Comment on above: Performed By: #### 1 5857798, 6992573, 2919819, [id number] ####[facility] (DEFAULT)[address] [place] [address] 84545 Lymph Abs# 3.6 x10 High 1.3-2.9 [facility] Comment on above: Performed By: #### 1 1464665, 3927578, 7362220, [id number] ####[facility] (DEFAULT)[address] [place] [address] 08474 Lymphocytes/100 WBC (Bld) 27 % Normal 14-48 [facility] Comment on above: Performed By: #### 1 4727599, 1755567, 1978891, [id number] ####[facility] (DEFAULT)[address] [place] [address] Clinch Abs# 0.7 x10 Normal 0.0-0.8 [facility] Comment on above: Performed By: #### 1 6648695, 8478219, 9593768, [id number] ####[facility] (DEFAULT)[address] [place] [address] Neut Abs# 8.4 x10 Normal 1.5-9.2 [facility] Comment on above: Performed By: #### 1 7759413, 7049724, 6652078, [id number] ####[facility] (DEFAULT)[address] [place] [address] Neutrophils/100 WBC (Bld) 64 % Normal 44-88 [facility] Comment on above: Performed By: #### 1 2799061, 7948636, 7704390, [id number] ####[facility] (DEFAULT)[address] [place] [address] CBC w/ Auto Diffon 4 Man Diff? Auto Invalid Interpretation Code [facility] Comment on above: Performed By: #### 1 [id number], 3412826, 6988626, [id number] ####[facility] (DEFAULT)[address] [place] [address] Erythrocyte distribution width (RBC) [Ratio] 13.6 % Normal 11.5-15.0 [facility] Comment on above: Performed By: #### 1 3565356, 0789526, 3256030, [id number] ####[facility] (DEFAULT)[address] [place] [address] Hematocrit (Bld) [Volume fraction] 42.0 % High 33.7-40.4 [facility] Comment on above: Performed By: #### 1 6239773, 5291533, 1289168, [id number] ####[facility] (DEFAULT)[address] [place] [address] Hemoglobin (Bld) [Mass/Vol] 13.8 g/dL Normal 11.3-15.9 [facility] Comment on above: Performed By: #### 1 9883614, 1854463, 9957215, [id number] ####[facility] (DEFAULT)[address] [place] [address] 23916 MCH (RBC) [Entitic mass] 28 pg Normal 24-34 [facility] Comment on above: Performed By: #### 1 2165720, 0110639, 0531218, [id number] ####[facility] (DEFAULT)[address] [place] [address] 79432 MCHC (RBC) [Mass/Vol] 33 g/dL Normal 26-37 [facility] Comment on above: Performed By: #### 1 4247337, 1110626, 4344292, [id number] ####[facility] (DEFAULT)[address] [place] [address] 18446 MCV (RBC) [Entitic vol] 86 fL Normal 81-100 [facility] Comment on above: Performed By: #### 1 0608017, 9202674, 1115300, [id number] ####[facility] (DEFAULT)[address] [place] [address] 04555 Platelet 352 x10 Normal 138-427 [facility] Comment on above: Performed By: #### 1 4426680, 7048949, 4430835, [id number] ####[facility] (DEFAULT)[address] [place] [address] 28847 Platelet mean volume (Bld) [Entitic vol] 7.8 fL Normal 6.3-10.2 [facility] Comment on above: Performed By: #### 1 3583174, 4051631, 8744125, [id number] ####[facility] (DEFAULT)[address] [place] [address] 79206 RBC 4.90 x10 Normal 3.70-5.30 [facility] Comment on above: Performed By: #### 1 7099750, 2484475, 9325495, [id number] ####[facility] (DEFAULT)[address] [place] [address] 29544 WBC 13.1 x10 High 3.5-10.5 [facility] Comment on above: Performed By: #### 1 7256602, 9277851, 3460860, [id number] ####[facility] (DEFAULT)[address] [place] [address] 46375 CMP Standardon 05-28-2024 eGFR Non AA >60 Invalid Interpretation Code [facility] Comment on above: Performed By: #### 1 9792632, 0837247, 5065100, [id number] ####[facility] (DEFAULT)[address] [place] [address] 82342 eGFR AA >60 Invalid Interpretation Code [facility] Comment on above: Performed By: #### 1 4858046, 2126301, 9535365, [id number] ####[facility] (DEFAULT)[address] [place] [address] 00895 Albumin [Mass/Vol] 4.4 g/dL Normal 3.5-5.0 [facility] Comment on above: Performed By: #### 1 0999552, 3225195, 0059353, 6477841506 ####[facility] (DEFAULT)[address] [place] [address] 78773 Albumin/Globulin [Mass ratio] 1.2 {ratio} Low 1.4-2.6 [facility] Comment on above: Performed By: #### 1 4195620, 5375424, 6100475, 9453710225 ####[facility] (DEFAULT)[address] [place] [address] 12403 Alk Phos 46 IU/L Normal 32-91 [facility] Comment on above: Performed By: #### 1 7434243, 3988510, 0637588, [id number] ####[facility] (DEFAULT)[address] [place] [address] 70177 ALT [Catalytic activity/Vol] 29.0 U/L Normal 14.0-54.0 [facility] Comment on above: Performed By: #### 1 9123918, 3388627, 9605985, 3975630805 ####[facility] (DEFAULT)[address] [place] [address] 25875 Anion gap [Moles/Vol] 11.4 mmol/L Normal 5.0-19.0 [facility] Comment on above: Performed By: #### 1 7996306, 0604964, 9123447, 7923453811 ####[facility] (DEFAULT)[address] [place] [address] 78144 AST [Catalytic activity/Vol] 30 U/L Normal 15-41 [facility] Comment on above: Performed By: #### 1 6363622, 3041581, 0273495, 7106008970 ####[facility] (DEFAULT)[address] [place] [address] 69811 Bili Total 0.4 mg/dL Normal 0.3-1.2 [facility] Comment on above: Performed By: #### 1 3614334, 3306774, 2348551, 1010649921 ####[facility] (DEFAULT)[address] [place] [address] 37249 Calcium [Mass/Vol] 8.9 mg/dL Normal 8.9-10.3 [facility] Comment on above: Performed By: #### 1 9508159, 4282855, 1831601, 3753734659 ####[facility] (DEFAULT)[address] [place] [address] 61068 Chloride [Moles/Vol] 104 mmol/L Normal 101-111 [facility] Comment on above: Performed By: #### 1 5512235, 6957285, 4680715, 9546608573 ####[facility] (DEFAULT)[address] [place] [address] 12164 CO2 [Moles/Vol] 20 mmol/L Low 21-32 [facility] Comment on above: Performed By: #### 1 0255588, 0163332, 9406487, 2842513013 ####[facility] (DEFAULT)[address] [place] [address] 78911 Creatinine [Mass/Vol] 0.66 mg/dL Normal 0.60-1.30 [facility] Comment on above: Performed By: #### 1 8813540, 9457440, 5928441, 0530385042 ####[facility] (DEFAULT)[address] [place] [address] 63791 Globulin (S) [Mass/Vol] 3.5 g/dL Normal 1.5-4.3 [facility] Comment on above: Performed By: #### 1 3629394, 2452389, 1478257, 6687484934 ####[facility] (DEFAULT)[address] [place] [address] 22047 Glucose [Mass/Vol] 100.0 mg/dL Normal 74.0-118.0 [facility] Comment on above: Performed By: #### 1 5865217, 8162954, 4207345, 2356756350 ####[facility] (DEFAULT)[address] [place] [address] 67491 Osmolality 263 mOsm/L Invalid Interpretation Code [facility] Comment on above: Performed By: #### 1 4545039, 5243144, 0337443, 7517229984 ####[facility] (DEFAULT)[address] [place] [address] 36508 Potassium [Moles/Vol] 3.4 mmol/L Low 3.6-5.1 [facility] Comment on above: Performed By: #### 1 6059632, 5786185, 8889613, 7859575006 ####[facility] (DEFAULT)[address] [place] [address] 47954 Protein [Mass/Vol] 7.9 g/dL Normal 6.5-8.1 [facility] Comment on above: Performed By: #### 1 9783169, 9883756, 3776986, 1993874515 ####[facility] (DEFAULT)[address] [place] [address] 56922 Sodium [Moles/Vol] 132.0 mmol/L Low 136.0-144.0 [facility] Comment on above: Performed By: #### 1 3633027, 8132969, 5743089, 2247993975 ####[facility] (DEFAULT)[address] [place] [address] 62039 Urea nitrogen [Mass/Vol] 9 mg/dL Normal 8-26 [facility] Comment on above: Performed By: #### 1 1850165, 7799605, 7164726, [id number] ####[facility] (DEFAULT)[address] [place] [address] Urea nitrogen/Creatinine [Mass ratio] 13.6 mg/mg Normal 4.6-16.2 [facility] Comment on above: Performed By: #### 1 8197824, 2839282, 6846406, 1651269031 ####[facility] (DEFAULT)[address] [place] [address] 82724 ED Clinical Summaryon 2023 ED Clinical Summary [facility] - Emergency Department [address] [place] [address] 33824 ED Clinical Summary PERSON INFORMATION Name: SHERLY ERICKSON Age: 24 Years Sex: FEMALE : 2000 MRN: Acct#: Visit Reason: Back pain; Abdominal pain - ; ABD PAIN LT SIDE, LT LEG NUMB Arrival: 05/28/2024 14:14:57 Discharge: 05/28/2024 17:55:00 LOS: 000 03:41 Check In: 05/28/2024 14:14:57 Checkout:05/28/2024 17:55:00 Address: [address] [place], [place] [id number] PCP: Radha Mendoza MD PROVIDER INFORMATION Provider Role Assigned Unassigned Evonne Cheung PA-C ED PA 05/28/2024 14:19:07 DoDaisy clark DIGITAL ASSET MANAGER Nurse 05/28/2024 14:26:14 VITALS INFORMATION Vital Sign [...] Home PATIENT EDUCATION INFORMATION Instructions: Muscle Strain, Rdyr-oi-Mhol; Sciatica, Cvpz-zx-Vuxw; Back Exercises, Ezwx-ox-Mrir Follow-Up: With: Address: When: Radha Mendoza MD [address] [place] [address] 80957 Within 3 to 5 days DIAGNOSIS: 1:6 weeks gestation of ; 2:Low back pain with left-sided sciatica; 3:Pain in the side Patient Understands: Yes - Patient/family/caregive r verbalizes understanding of instructions given Comment: [facility] ED Clinical Summary [facility] ? Urgent Care [address] [place], [place] [address] Clinical Summary PERSON INFORMATION Name: SHERLY ERICKSON Age: 24 Years Sex: FEMALE : 2000 MRN: Acct#: Visit Reason: UC - Abdominal Pain; LT SIDE PAIN, LEG PAIN Arrival: 05/28/2024 14:07:02 Discharge: 05/28/2024 14:10:00 LOS: 000 00:03 Check In: 05/28/2024 14:07:02 Checkout: 05/28/2024 14:10:00 Address: [address] [facility] [address] PCP: Radha Mendoza MD PROVIDER INFORMATION Provider Role Assigned Unassigned [...] left flank pain; Currently Patient Understands: Comment: [facility] ED Note-Nursingon 05-28-2024 ED Note-Nursing Supervisor Soldering at bedside wh ile US was performed. pt tolerated well [facility] ED Note-Nursing Pt ambulatory back [...] is A/Ox4 call light within reach Normal [facility] ED Patient Summaryon 024 ED Patient Summary [facility] - Emergency Department [address] [place] [address] PATIENT DISCHARGE INSTRUCTIONS Patient Information Name: SHERLY ERICKSON Age: 24 Years Date of : 2000 Reason For Visit: Back pain; Abdominal pain - ; ABD PAIN LT SIDE, LT LEG NUMB Arrival Time: 05/28/2024 14:14:57 Primary Care Physician: Radha Mendoza MD Attending Physician: Pam Gao MD Comment: Visit Diagnosis: Diagnoses This Visit 6 weeks gestation of (Z3A.01) Abdominal pain - ([id number]) Back pain ([id number]) Low back pain with left-sided sciatica (M54.42) Pain in the side (R10.9) The Pharmacy at [facility] is open Tuesday through Tuesday from [...] contact the Mental Health & Recovery Board [facility] 28/03 Crisis Hotline -Text 4AOGL eh 827478. If you received any narcotics, sedation, or [...] any legal documents With: Address: When: Radha Mendoza MD [address] [place] [address] 16436 Within 3 to 5 days Medication Information: The exam and treatment you received today in the [facility] Emergency Department were for an urgent problem and are not intended as complete care. It is important for you to follow up with a doctor, nurse practitioner, or physician?s trade sales assistant for ongoing care. If your symptoms [...] so we can reach you if necessary. [facility] Emergency Department has provided you with a complete list of medications post discharge. Please inform your wafer cutter/provider of your visit and for further instruction [...] can happen (more content not included)... Normal [facility] ED Patient Summary [facility] ? Urgent Care [address] [place] [address] PATIENT DISCHARGE INSTRUCTIONS Patient Information Name: SHERLY ERICKSON Age: 24 Years Date of : 2000 Reason For Visit: UC - Abdominal Pain; LT SIDE PAIN, LEG PAIN Arrival Time: 05/28/2024 14:07:02 Primary Care Physician: Radha Mendoza MD Attending Physician: Spenser Fang Comment: Patient Education Medication Information: The exam and treatment you received today in the [facility] Emergency Department were for an urgent problem and are not intended as complete care. It is important for you to follow up with a doctor, nurse practitioner, or physician?s trade sales assistant for ongoing care. If your symptoms [...] so we can reach you if necessary. [facility] Emergency Department has provided you with a complete list of medications post discharge. Please inform your wafer cutter/provider of your visit and for further instruction [...] (R10.9) Currently (Z34.90) UC - Abdominal Pain ([id number]) If you received any narcotics, sedation, or [...] for Disease Control and Prevention May 2014 [facility] Lactic Acidon 05-28-2024 Lactic Acid 9.1 mg/dL Normal 4.5-19.8 [facility] Comment on above: Performed By: #### 2 [id number] #### [facility] (DEFAULT) [address] [place] [address] 32065 UA Yufyd8ft 05-28-2024 UA Bacteria Trace Normal [facility] Comment on above: Order Comment: Urina lysis Microscopic order added on by Prolebr[employer] Expert Rules system. Performed By: #### 5 [id number], [id number] #### [facility] (DEFAULT) [address] [place] [address] UA RBC None Seen [facility] Comment on above: Order Comment: Urina lysis Microscopic order added on by [employer] Expert Rules system. Performed By: #### 5 [id number], [id number] #### [facility] (DEFAULT) [address] [place] [address] UA Squam Epi Moderate [facility] Comment on above: Order Comment: Urina lysis Microscopic order added on by [employer]br[employer] Expert Rules system. Performed By: #### 5 5764731, [id number] #### [facility] (DEFAULT) [address] [place] [address] UA WBC 0-2 [facility] Comment on above: Order Comment: Urina lysis Microscopic order added on by [employer] Expert Rules system. Performed By: #### 5 [id number], [id number] #### [facility] (DEFAULT) [address] [place] [address] UA w Culture if Ind Standard on 05-28-2024 Breakpoint UA [facility] Comment on above: Performed By: #### 5 8459284, [id number] #### [facility] (DEFAULT) [address] [place] [address] Color (U) Straw [facility] Comment on above: Performed By: #### 5 3648440, [id number] #### [facility] (DEFAULT) [address] [place] [address] Culture? Not Indicated Invalid Interpretation Code [facility] Comment on above: Result Comment: Resu lt created by rule GL_MAGR_ADD_UA_CULT Result created by rule GL_MAGR_ADD_UA_CULT Performed By: #### 5 [id number], [id number] #### [facility] (DEFAULT) [address] [place] [address] Glucose (U) [Mass/Vol] Negative Normal [facility] Comment on above: Performed By: #### 5 7298983, [id number] #### [facility] (DEFAULT) [address] [place] [address] 54988 Ketones Ql (U) Negative [facility] Comment on above: Performed By: #### 5 9211014, [id number] #### [facility] (DEFAULT) [address] [place] [address] 47632 Micro? Indicated Invalid Interpretation Code [facility] Comment on above: Result Comment: Resu lt created by rule GL_MAGR_ADD_UA_MICRO Performed By: #### 5 [id number], [id number] #### [facility] (DEFAULT) [address] [place] [address] UA Bilirubin Negative Normal [facility] Comment on above: Performed By: #### 5 2657225, [id number] #### [facility] (DEFAULT) [address] [place] [address] 51021 UA Blood Negative Normal [facility] Comment on above: Performed By: #### 5 0560180, [id number] #### [facility] (DEFAULT) [address] [place] [address] 95992 UA Clarity SL CLOUDY Abnormal CLEAR [facility] Comment on above: Performed By: #### 5 6138564, [id number] #### [facility] (DEFAULT) [address] [place] [address] 99651 UA Leuk Est SMALL Abnormal NEGATIVE [facility] Comment on above: Performed By: #### 5 2257266, [id number] #### [facility] (DEFAULT) [address] [place] [address] 32409 UA Nitrite Negative Normal NEGATIVE [facility] Comment on above: Performed By: #### 5 6439551, [id number] #### [facility] (DEFAULT) [address] [place] [address] UA pH 6.0 Normal 5-8 [facility] Comment on above: Performed By: #### 5 9770418, [id number] #### [facility] (DEFAULT) [address] [place] [address] 57930 UA Protein Negative Normal NEGATIVE [facility] Comment on above: Performed By: #### 5 3494215, [id number] #### [facility] (DEFAULT) [address] [place] [address] 12940 UA Spec Grav 1.010 Normal 1.001-1.035 [facility] Comment on above: Performed By: #### 5 9135240, [id number] #### [facility] (DEFAULT) [address] [place] [address] 52583 UA Urobilinogen 0.2 mg/dL Normal 0.2-1.0 [facility] Comment on above: Performed By: #### 5 5330617, [id number] #### [facility] (DEFAULT) [address] [place] [address] 57669 Urine Source Clean Catch Normal [facility] Comment on above: Performed By: #### 5 4836023, [id number] #### [facility] (DEFAULT) [address] [place] [address] 51932 US 1st Trimesteron 05-28-2024 US 1st Trimester [...] Radha Yeh MD 05/28/24 7:34 pm Technologist: [facility] US Transvaginalon 05-28-2024 US Transvaginal EXAM: [...] Radha Yeh MD 05/28/24 7:34 pm Technologist: [facility] Urgent Care Note- Provideron 05-28-2024 Urgent Care Note- Provider Patient: SHERLY ERICKSON Age: 24 years Sex: FEMALE : 2000 [...] History Medical history: Resolved Ankle fracture, left ([id number]): Resolved. Ankle impingement syndrome (773919428): Resolved.. Surgical history: Cholecystectomy (73443975).. Family history: Anxiety Father Sister Diabetes mellitus [...] Diagnosis Abdominal pain, acute, left upper quadrant (NFD02-NC R10.12, Discharge, Medical) Acute left flank pain (BAK14-GN R10.9, Discharge, Medical) Currently (EPN41-YC Z34.90, Discharge, Medical) Plan Condition: Stable, Guarded. Disposition: Discharged: time 05/28/2024 14:15:00. Follow up with: Radha Mendoza Pt seen by provider at triage into [...] on: 05/28/2024 14:16 EDT] Spenser Fang Normal [facility] hCG Quantitativeon hCG Quantitative 24473.0 mIU/mL High 0.0-0.6 [facility] Comment on above: Result Comment: Post -Menopausal Reference Range is: 0.1-11.6 mIU/mL Performed By: #### 1 [id number], 7647574, 3765590, [id number] ####[facility] (DEFAULT)[address] [place] [address] HCG ( test) Ql (U)o n 05-08-2024 Interpretation and review of laboratory results Abnormal [facility] Preg Test, Ur Positive [facility] Progress Noteson 04-24-2024 [employer] Attendant Authentication Interface Message Text Attestation signed by [...] [facility] PATIENT VISIT CHIEF COMPLAINT: Toothache and Ladd Teeth HISTORY OF PRESENT ILLNESS: 24-year-old female [...] canal DIAGNOSIS: Abnormal tooth eruption (Primary Diagnosis) [471570] Impacted third molar tooth [903507] Caries, Impacted wisdom teeth, and Retained dental root ASSESSMENT: #1 Caries #16 Caries #17 and #32, Partial bony Impaction with pericoronitis PLAN: Surgical extractions #'s 17, 32, Extractions #'s 1, 16, and with local anesthesia Pavan Lee DMD, MD Normal [email or web address] Att[employer] Authentication Interface Message Text Normal [facility] [email or web address] Coding Summaryon 03-28-2024 Coding Summary HTMLBase 64 IucwzciaYZy1nGz+PGhlYWQ +FD3KFPJlV38hiWMhaH9tD8 NMTElOSywgQVBQTElOSyIgb tCzNC8ykEGyHFCf IC8+NL5fQURrRqcapTMph7R 7uYE9D87mza2fUOvffUR5CI NhUbFbbthvt1sxcTw7IQheG mluOyBt QPDpsJ33MDU3uA79Km55nBI btLDgj6fmoZf7XpTqDOBaNK H2yTqgBBask3JtEIVwO30lu LVib0J5 YQOloLszjYWhZfMfbFD2lP3 gPDfupcewa3ugpfeiAxf6rx 28kMGxj6Z2gWF2B4YdybV8P GJvbGQg EwihoVWGgK6yirhbm6eavth jSqXkWRVoOUk1QQp3ASFdeE nrJuTjFJ71BRI9LNYpfeMkH 2FsLWFs xEtbEcC6b6U2Tj8OA7ZNCoc qU7KBDXSHDMfqwGD+PC90cj 21T8GbOnafQzi1YLTfRVL5a KR0mZ8y DWAaVWiof5P0pTI8E0IamyI hyb1jv4hvLUQdXEwoS46rzV Bwe5M8FDPrmMG2GUNvtPrbC iBzaG93 Oyc+DMTelJmis7EwNahtu0c sg6aehVb6VhkeFQKiwfMvsN kdKSB8v9LkFq9lALUlwXV8l FO0fN9f GmHcPhY4XLwjZ894ErZzgXO iXwvjI06rQ4DowQB+PHRyPj h2ATDhtZukGT2jK3QhLLDey mctbGVm lDmdVV9wGYNiexjiJRYocD9 kDJDwX2o5QvCjVhQ1YUewB7 MiDTQyfuozLq37dA2fZgLgC iQ4PZkp B6QrpnA4TQWimJDjFAgaVYY 8E17oo5J2ABXmDMRyKAN4oT Z8hO9cgWzgvijrcFWitMyzw mVydGlj CFprDFqbA398FLCbjTaxUwB vZGluZyBEYXRlOiAgMDcvMj QvMjAyNDwvdGQ+OJKeXAU7x WxlPSAn uCWmCFgoVp6rrDfrdAwmWL5 jZUYegbcbESLetI0yKXZreC SujWizFR7eRUBdwmnmj885I iAxMHB0 CUGrsGApC3VtgL0cFfXzLIM rBBHhJ0EemLPnBZsuB936PN afJuD3PNBdmlFzS3HiSIHue WduOiB0 b1P6Bd0Lj6KgajhxJ4FecST iZxAmTjbmMMr6A9BwAupqoF I+YD11DVDfVT64SGp9FLB4r WxlPSdi XJEeN9VmcQ4cGdTnHSEoSYL kOyc+PHRhYmxlIHdpZHRoPS oeEGLgKfVgpCqyTF9mAh5iM GVyLWNv vIjamRBbHsUgx2zsOGXqLPb uSJ9zwOdsJ1NpwQL0EOJyj5 m2Ya97D80uB4ZitCS+PGNvb IP1eWX1 hP5vFhHdCjD6TYaxH969DhX ibILnJoyll7zcn0ixxHl4Iy Q3OYOyygSbgGpgLUF5q8VaM j51D31t IHdpZHRoPSIxNSUiIHZhbGl vnt8cgB4pTk8+UKLfuQV5nP W0yY1qBsUkJyV0TJmxO216M nRvcCIv Dqmxq5tnp6uldGc0EdTvCFV mwmJazAkqLVK6u7PwAl15L7 HdqYzdd4LgYyx8lu55mANmc 3S7vAT2 Y8FjCDEiztdnnGOofGdzGH3 dQKNicstlVFIcmR9mNCCjA9 b4AkVdAiP8ILnmI3YpiyH1L GJvbGQg SLIxlYYIyB5ojxqag9wzzje vDlTaFOCoRIm5DLd8GNZzoS rvCuBhAGZ6NgB6IYI2lKZvl R2ytQvp fdokmX8lChm+OBG4iWLiuRQ DKS5vKsnhoBN+BWVwQUI0bZ obXQtaAHAowP9oRHGqO9q7W iAwLjA1 FUslV7UdmxG8EHGndPQoOPZ dcJJHhG3rttjwi0srsnndRw HlEXAsXAq9DWr7UVMmuQnwI iBsZWZ0 CwX9FQL2tLVpwV5tfVcceop ksW5tKzy+LjiizHgeJCO7PF g2G4UyKyt7ABWmcUgcPY6ks GFkZGlu Pl6xxHtjoZjcEX5tJKDdpmu nb732VnRfv0efFLHocUOkHZ ouNHS8A85jo1F7YBQiQSTjD WV3sUF5 xP6pxSozqcjvbNYzzPjkguK guJolGZonNCwxP287OEJkcA joDjCkMEr5E0UyGri4ENJxe WjoOM4l aDJbPBvtDx6xrZnplEjjOI9 iQZDlkxbtw524VrNko1aqPJ FxmOQeCRioZQM5E43mr6S4W CMwMDAw ESR0nIO6pX6bzPqmmzrcqOL mdDsgdmVydGljYWwtYWxpZ2 88YGPlnDqyPgLgiOj0D3CrX yw1EXSs hPbcJB4yyOTdNZztLq8vyPn mpCibZR6yITHndzxim513Hu Dyi4tvBULraYBbAFhyDPM7Y 87rt9V2 TYGoDIIiBJR7vUG8uI1mcFk nbjogbGVmdDsgdmVydGljYW umNXdxL537LKRjnOrpQeDpx GllbnQg SZtsVOu3V7KaPlhfxRO+PC9 9DYJpGZ48fIRdjJCgl7haiN b6PlAlDIVhCLF7rUksLUeuh 3JkZXIt B46peFEvh2M4UMQzrZwsfQI dUaMheGY4wO8vDDskkhzaz2 nuacauYkupk5fuat54bO34P 29sIHdp ZHRoPSIzMCUiIHZhbGlnbj0 gnO9eEz3+DWDioZS6sTC7xC 0gBLLcUkI1VLtoB689WhBbh CIvPjxj t8uiu0ougBp5FhC8SJPnotV uhOmnOIL8y8VjHz86L13lFO dpZHRoPSIyMCUiIHZhbGlnb i2yfL0s Ii8+UQGqqHX1vQU9tY4jVhM cItP4FRxuU872JoWoiSAbKp xxY01iU5QsuVP+VBGhXji6Z CBzdHls EM3hqYBbVKikWo9qJNQ0GzE eUnYdZOavX0BbNHEmuerbcb pbaBS3VDEkLRUdpG38Qu8ui DogMTBw qXOCdJ6bjutka8jmvbuuLcM vNSYwUYk7TUy3VWCjtNjjTc RoNOV8GgR9UEA7eIRegN8ij Glnbjog oI4rF1YjSTWaossaPw01pL1 bWhMaDvR3XQwaZrr+Q1JBV0 ZPUkQsIEJSRUFOTkUgTUlDS EVMTEU8 D9PmYsg6JMRwrAzzNK0slZI pUAbtSg1nvLecdUezTQ3vHT LrxesfLTYuvI2bMMDgkRYan RhoQU6e WISlrkavo514TvJyPAA1HWV sxHEwX9YlrO4lUoMfCFZbNZ RtT1UaePGdGTkoD559FFbvJ lS7JSQp vyZkH3JeUUWmlWljVaW9i2B 6Qe8bEv7sIP3lQCz0CO17BQ 03rDQxj7F2uZH7D2JzUGWpm mctcmln kNK3EFLdLOHzaZ83iQBsHUv lLk4no5B7c647ZNZaBITpvL 88Th9haUozUNCqtPCNrG4zw qdas8vn luxpHkBsLLBwGMk6JOc4EHY hmLlzTuPcAKZ3RmO5DGE7uG BsoC9afDjubzaypC9gKyp+M jYgWWVh qoB5G5WgQcp6DEUsdVvgRZ8 inWJySHghNf9sxTouaJswSZ 9iHFItookmTOSmbT0wQHWgf HRvbTog UX6yEKSkoobus280KdCwRWP 0UAGhuZVlR0MouL7iEqDkIT UiKKUiB0RjqKKxGYzpY702X GxlZnQ7 XDAludOaI3VlLVEzkXptRrB 3q3F2Tr2HWV5KVKF3X7TeDm m9YBUsqCyaAE0zhIUxYQgrG p7iaJgj qXxlZC8fPOWdhghpYNZphG3 fJOZauBFdgWghPG6qSXNgyv ttf300RnAhDQQ2HLAqdQCtO 8NofF9s CgGeTVOuVURfX7UcxTDxUKl vE398MCatAkH0GZDoebCiI1 PwSLYylEsfRqD2v2V1Zr8BS DwvdGQ+ HA07my22V9VpQalyQgh9BXF hUZT2zNW1jW7wCOAoCYorm0 B8zQS0R6RqvwGnji1ng7azK XBzZTog Z24wiTWnn7A9WLOfdTO6MOU arFxiZhXlrG36Ylz+PGNvbG tgx6KySziuc4lhm1qtkKt4D jMwJSIg aiGkdXwaFVA3t4NdAw41U93 sIHdpZHRoPSIzMCUiIHZhbG bmur3dmP5jFr5+IPEjxCP1r XE0sU6k KqNsIxG6IWycG722TzDcrSO yNiqhu2dwo5agqVp9CtZlCK IingXfgAfcHJI7k3HlKi02T 2NvbGdy y6LxUpw8qn38jHRxc9G8kVL 3Y6SnMKEozbtirLSspImgQC 5eQDUoiggpHIXdxW6pLKMaY 4s7PePb GkN5NFekF4YmziC9AEJjwAK fYSPdcGTKlB9harpnb7cxsu wgKqGkTHJmEDx2TSl0ZCSfb WduOiBs QKJ7DzC9ZQU8yRRslS5ieQu piawysU2yRoi+UHr4t1uccG NvYF2erRF2RN37LD89oMPpg 6V4vRE0 U3GrHYZlealztklrqWR7CFC rJYZurR00Xu5ebIjcRb7mZF PjCAL0ZOXjvDKjH2KzrM4tR iAjMDAw LMXqF0MgnMWySKnyQ745PNv nIdB7EWRhhbKlZ6ZxICFtdE gkLlK4q5N2Ch1KSL34XX84A Q30pMXa b0H9wBU3N0IkDKMtrasezup faRX4PTNzRDVyqG77Qj7oiE ksUo9hCGCmZDA2KVPqiVIzI 2KojL4t XiAcJKZlOMFlJ5EkfZEnQVf nL080SYeqOiY7GEDrtxObC7 PgMVUhuYoqJmE5n2P4Eq9XM s79LN94 NE71cDPeh0B2rYS0H1RpGBX fzmqwimnytZL8XNAdZSRpoD 69Ny0xcAijPa3nFNDtPGF1W FRpbWVz B6NwsW0sNnCsLJPkJUQfA7E cfACbWSdyK299KNouOeA0QH ThtrRyA0MtLHPnyVsyQpX7n 1Y8Vr1M DOjpsia4R0BfFtxpqYY+PC9 4QFNgDK78nOOihHVsj8ywtH c1IvWzJVHaDHG0yOwrCWxbn 3JkZXIt Y29 (more content not included)... Normal [facility] Progesterone LCon 03-15-2024 Progesterone LC 1.4 ng/mL Invalid Interpretation Code [facility] Comment on above: Result Comment: Foll icular phase 0.1 - 0.9 Luteal phase 1.8 - 23.9 Ovulation phase 0.1 - 12.0 First trimester 11.0 - 44.3 Second trimester 25.4 - 83.3 Third trimester 58.7 - 214.0 Postmenopausal 0.0 - 0.1 Performed At: [facility] [address], [place] [id number] Sarah Beal PhD Ph:[id number] Performed By: #### 3 [id number] ####[facility] (DEFAULT)[address] [place] [address] Provider Orderson 03-14-2024 Provider Orders [id number] [id number]#1.00O [facility] Coding Summaryon 02-20-2024 Coding Summary HTMLBase 64 PbzcoqovSLo8fMh+PGhlYWQ +AF5YBVNmK48tnJMgeN9xG8 NMTElOSywgQVBQTElOSyIgb cRnGC9nlXHbNOLn IC8+SN7tZOMkTmclpNKul1Y 6hAE4O36vjh6aYLfydXO8JI OqLpMcuwkub8ijfDt9RHdrE mluOyBt LJTgwX31QBI6lF16Gy49xOI vqYReh0ldjXu8HtMdMPRdMZ L6yBrdQDdoh9UeQRKmC09lo QKwj9T4 SENhzCnqyPZnFjKdqAB1kJ7 iFOgjpmrjl5gzufuqPvl1ig 60lSKkr7E7mEO6X2DtviY6Z GJvbGQg RroevSXNsF9mvloaf1odyeh yJcCfYYZuGYg0DQq2CZJxkB ozKpLfDC39TOQ0QEGwxsBgO 2FsLWFs gPkaAlJ1j9K4Pu4GO4AHYke sK4XLKPCWQCfzpRA+PC90cj 98X0KhHhxeQwc3OOSwUNG1x UU6qW7w SUNxBAkrd2W7fYJ2R0HrorC vxq5vh6trHSIzZYmtS11jaW Tjo3O9BWNtyUK5JFVnaWorA iBzaG93 Oyc+PQKziGwjn6PjSgcvt9v ke6tyxVj5NduvIBXgnkOetU quZOG6t2BxFg8eVTPitFE2d FB0nX0s FlJoAaD5SLzjV917ZoIfrMY qIxkfO15qM6EaxIO+PHRyPj n8TBAmvQgyUX6xQ9PiAFZwv mctbGVm eWyyHR6mKCOxpqjxCSKloG5 wVBYvB6x9DmHaWrJ7EBgbT3 VjPVPaznnnAn04tD8gHnGcM zK6PNdd S8PqctX3TNEyiFYaRSueBQV 3N19hc8O5GHSlTWSsPUF7mJ K9oF2lzLevixgvyUYbkGlog mVydGlj VRmaJJogV739QUCwfNptBjC vZGluZyBEYXRlOiAgMDYvMT cvMjAyNDwvdGQ+WWKkERN1z WxlPSAn kXScYBylSg5yjGjhjDsnNP3 gWQIbmkczNTFpfK7cNMZkwJ EimGiqXM9pADWchnjbs533K iAxMHB0 SQQskRYbI3NpcB3gJxFeKEB vGDVuR5AnnLRrQDrnE461MW beKxN5VCSakbVjN5FsTXLvx WduOiB0 t4C1Tq0Ss8WcbbylO4OlhVV pMhPbDteiKXb9D4QrYfjlfM I+ZF34LHCuXK06ZWt9EXE0i WxlPSdi FZDiU2OmmX8xTzInKOAjSCO kOyc+PHRhYmxlIHdpZHRoPS kxNIUvLoPdsBjlAB8tAj8dM GVyLWNv uXndpCZsDoEez1boTVSbPIo xHH7vxEfqQ4FzmQE1JOAtw6 a9Tm74V93vU9WeeYS+PGNvb BF8jXF4 qH8bQtRqMvD4BUnfJ492NnD mfCXzAwyoh6yyy6xxxSg5Yv Y0LHIsuxHcrSveUEJ6a7KkJ t31M30h IHdpZHRoPSIxNSUiIHZhbGl yqu7jlQ7cUl3+IIQivBS3dP Z3wH0qAuMwGhY6CKqmX618A nRvcCIv Bvtla3ihm0xjcLl0MsGrYIX hvnUhoYvlDFW4i2YwSt30B9 MmaOnzo5QlQtm4gf50gXEdx 3B3lCU3 O0IpIXUbsuuvkPKkbRrzOI2 zBXNmyvepVTAorN0tQPLnK3 w3PiFrUpT9GAbvK2DtsxX9I GJvbGQg HFCpyEUViM5dewajq3uvkzs mHqRsSMBbGMa4HVt2QCGddI cbPoCbUWG0QpK5XLZ7cXGmv Z8snBqq kdnmcO9xSqw+DNL1pVJpkXL DAA7iUioecMV+NBPiECN6eB qjQNcrEXJilR4lTWRbE6i0V iAwLjA1 WBdgY1KxwhN1DCBnaOYoCXF jhJCTzF7fcdtsw4tdvahgSd YjXVPxVYo3KSp0UXRdhTevM iBsZWZ0 UqL3ETP0hFKrqL3yfHnxmaz ziK7uPfx+UxiwaLalJTX0OX p1E0DfZql0RBQzdUgyUH6xy GFkZGlu Gq6gvIigkWhtHW5cWFPedys wl021YiVfx6oyOTNbuGLmWO xwRFK2Q08nw3Y4FYXzGUStL DX9tEB8 jT2yzEjvytwkiKPvlDjvkvE owHeqLJtjULhoH587GJZevA ouTjAdPDw0B4KlRjo2ZCCri AmkLB4f mGSyYColSw1mvYznaVnlLU5 rIKMduiidd376JwZmr8ljYM HfxPLaAZuqJNN2C01on2H1M CMwMDAw EBC1dNI9lI5xsTlrpzkasYC mdDsgdmVydGljYWwtYWxpZ2 64ZTUumZgrFhHbeYx0I2FsM am6WOGd uIqrOF6jdUEnCXmlAi4etSw gvUkrXU2aMMMuiydyz206Yl Mxz6etQIExmZFvXVpyOGR2B 59zj8Y6 ARAsFTLyODB5xFQ0fQ3ldUk nbjogbGVmdDsgdmVydGljYW xnTTueK503FRWubMbzPlIyh GllbnQg LOjtMLi4T6DrXlgfrLQ+PC9 8MQFyCU65uWVdyQQpz6sovW r9QnUvZBPvBEA4mAolFVagf 3JkZXIt T85cpOGzl9N2BAZfxCnaySK hPiIkaKM6zT9rIDcnwnwag5 zorzkrMfkov3vhuv83aI77C 29sIHdp ZHRoPSIzMCUiIHZhbGlnbj0 laS2cEt7+UJQanSJ2vKQ3zQ 5tBJIdQaL6ZCzxU289HnLtl CIvPjxj r8oss6nhaFx4DvN3OUKdiuE liKvqALP4r4UeFx15N00rBW dpZHRoPSIyMCUiIHZhbGlnb w1bwC5b Ii8+UFHqmWV4kRQ1vY0hFhQ vAtI1GQotM981OcSlzCOzRe hmD47vF4VodYG+RLSzCce9C CBzdHls MR1tmVZjRApnBp2oIFW9BhV sIoQkZUfrG7TmCQXnitjyol tifQW9DGLyNQBafB50Vq1ii DogMTBw bVEBeQ5zgslav6kjywobQmF vUYSsLRr0IOn8CKJuoVkkMd FkNWP0OsU8BRF9bTHsvG3ay Glnbjog mE0oQ2UnAGXfqhifEd80iL7 fPkObGmS6HKpjRqh+Q1JBV0 ZPUkQsIEJSRUFOTkUgTUlDS EVMTEU8 N8EoHnl3PGCthPgcMW9lgWG dXKunPi4lrZifoWbxPV9uUN MetysjUGTerB9pMJWtpSEsy TwyOY6y UIFefdkhi326EvSzFAW5SYY olTYgB5ThqJ9xWbDwIXZeWD SdL1KnjSCmYSqvA994YJhmZ aO2AIAz wsHdS4ZeZUUtfXbnUxV1s3R 4Wm8cPz7uJQ5xBFi7GX19MY 26iKRyb8U6jUS1M5AfDNHio mctcmln fBB1BAQnGPIssG15kGNuFKk aXz4wo3N3v336IIYgMONnuW 05Iv0xkPuwARKhrEKMzV9zp eija0ug gondQcRnFLHnLZo5HRc7EVE rjRemMbSyXEP5WxI6OWZ0sI WisA2bjRwqgymanY4hMmo+M jUgWWVh rtM1K5HuJwi0IZXxiPxaDI1 rdMNqBZbyIu0cnCsbdPqvSK 2iHPTtlfwiIELyqI4tIKWnq HRvbTog QJ6mQUYbkltql449RwGpWEV 4GHZimQDgP1NzzY4yXxArUU ZiMLNxR3KzqMPuOGjnJ601I GxlZnQ7 GWFwhtVvN8WgNGXbfHsaUwY 8f0R8Re5NEE0TOYM2L2YvXe f5QSPahHmwNG6alFKvQUaeO k1hzDkf kShfHV9mUJPlwfexWETbxP5 gZEKfsUAbmBhwCF3oYHMzim nfs983JrDaQVF4PCGxfREsL 2RjsO6z XxJzNADwQIRxR4DlqPEdILb lW420BCawJgH3CRLtdpRzU9 JeWAQgmIdqExP3g2V0Kt0SE DwvdGQ+ XN05nx59A0SxKtvgUbv3TKR aPAE3bQG5iA6pYSFgAStiu4 S6mZW3A4RmnfMwho9yo9vqR XBzZTog J49xaWOnb9X0ZHXefIN8DLR pfSmmHeZqxV21Mfp+PGNvbG zum7HoDwzeq4dfi3enyBk0I jMwJSIg tdEcbSlmZVP8m6LoJq41E47 sIHdpZHRoPSIzMCUiIHZhbG dfvl3hjB7gGc1+TTPzzXO5b UF0uS5g JaMaQoU8NLpoD010HrDpxDX fPvaci8kjf8pjkBq3SzNvPU NuxgMjsZagOJZ3k3WqJj22C 2NvbGdy y8DjGvb0qy86nZNdf6G0wOW 2Y8DvHOTelefqzZQqbKdnBC 8vSASghwsbVQKlsL2nFMGgZ 3e5SdEp NdV7PIozT3KzdyT0BYJwbUO xRWMdtOXZbM6huuunh0kmsk ehMlZiZQCkSKb6CHc4FPNky WduOiBs WNM3BjU5INA2fEFhzH3otBx mgldblG7uVxd+FFu2u4wrxW KvYX6jhLP5WO17HN48oIKoz 1R9nOT7 I3KlGOLtxsryuacalUJ4HSL cFIJuqU06Et6iaZycEa1rIY SrJVU9KCNyaALxB8ThyG5iK iAjMDAw FIGsD2MxtRBmFDpvT481FIg aVwF4RWGzlbPsL9SeAAYlvV nkSeJ3y7E6Tr5DZO07NX23Q L56aLBw i5O3fGF1T0CvJUOqfdkhbdn dcFX5TQPyROKuoO72Kw6odB fmFe3aEHRlVVF4RKQobRRrU 5DgaG4y QxWdGMMxQLIzM0RymKSrWBx sN141AYsnCkW5QMFbkpGbH0 GvBRHgqQhkDnV3v1R7Gx2UA k64KP74 VI69dJHeb7U3kDB9D6RhPZP ylbkpgggqgRD3MUPyPHHnfG 31Bz5yuZioDm5uZJJbMSV5K FRpbWVz G3BtzG6xUgTjJGQfKKVgU0X voYLtBQyhR807XZzeOfL3SC JymnMtI8VxVVXpwYcpPmD5n 7B6Da8J DQcsojx3B9KyFgagtEC+PC9 0WOFsFG84wSPhdTEry1zvkW g1StRnDJKcWDJ7dUqgKMsiy 3JkZXIt Y29 (more content not included)... [facility] Progesterone LCon 02-15-2024 Progesterone LC 18.8 ng/mL Invalid Interpretation Code [facility] Comment on above: Result Comment: Foll icular phase 0.1 - 0.9 Luteal phase 1.8 - 23.9 Ovulation phase 0.1 - 12.0 First trimester 11.0 - 44.3 Second trimester 25.4 - 83.3 Third trimester 58.7 - 214.0 Postmenopausal 0.0 - 0.1 Performed At: [facility] [address] [id number] Sarah Beal PhD Ph:[id number] Performed By: #### 3 [id number] #### [facility] (DEFAULT) [address] [place] [address] Provider Orderson 02-14-2024 Provider Orders [id number]#1.00O [facility] Coding Summaryon 01-19-2024 Coding Summary HTMLBase 64 IqhavdjpMFg1jJd+PGhlYWQ +ID9KUGUkA28ucPAdwC7tB6 NMTElOSywgQVBQTElOSyIgb sPkKX3ftWDsDYKq IC8+CJ3dYDIjFkzgiABiy5T 0jXR3X28zmw9xGCpaqHO4GL XxPdPhckynw2ikxLt9UDzgW mluOyBt ZGObvT25ALM5lG66Gy65kVI sfVLvz7whtKk8EsEjVQQzIK Z2hRbcKQxgb0LtSVDpZ90mh OAsj6O0 ZDGwnZhpmUPnUpNjcBG0uI3 rASdumwyrh0ppoljsMgc2dc 57jXEed3U3iBF5K9AjedG7I GJvbGQg BcbvzDWJjB2itmaoc3pilvi bYzMdHXKsDKy7PCd3TDVvzY llOcOnZM83KXF8BIIlssLuZ 2FsLWFs jZaoIgM9a4V7Yf3VD4LZQrr gS3VXXCBQEVkyoBZ+PC90cj 24P9ViZcouEsb4KLRoCET7l GB3xB3r AHIhLUqcs4X4xWA0K0DxumW qgo0ag6orLDUhFZhnC74hcV Dtw3W8GDAjmLN6KWRpfIndZ iBzaG93 Oyc+MSMduNbzv7VxCcsvk2r ik3odaPy5GeuoSFSacjXsaV hcLHP5w3TmId9iVNTnhXB6i RV9yB7w EpXwNsH7BMjeM909GdHnpDR wHjwzV64gH7RsgOE+PHRyPj u2KVXhuEsjPX0wA3IpSSCzh mctbGVm lWyrDQ3nQCOxzixpGDNnpP6 xAMYqB8w4GfTpSqR8IKzwD9 YhSPCeprcgVj57cE5oVoXiJ wS9OMzf D0QqzjC3ECWnbZKkNMxsARY 3K37lr1J8IOXnECHrNUO7wA Y4dH6zoTsdifiodLAknItqz mVydGlj PLxqJCrqK979IAKuzNqjOaD vZGluZyBEYXRlOiAgMDUvMT YvMjAyNDwvdGQ+QKNaHLP2d WxlPSAn wNFyVKzhZn2egZrcpFlbEH1 oGNPerwtlXJHffP1sAVPufI JpnTorRP8jXJJqoapqq844I iAxMHB0 NZDrmLQsV6SvrO9zUgGrPCK iTNNvS4QcwBZqVHfgW244GR ixQjD9XHJcddHmC0NaCEPcg WduOiB0 u6A2Kn2Nk2JfzzwxU6FbyPK xZmJlFaasMZn2N5SqNztfjE I+OI77UYJrUE99XBk9KWT8d WxlPSdi GAOmM4OyhM6sCfZmGUDhSXH kOyc+PHRhYmxlIHdpZHRoPS cyNOGaZaIovNbdWJ4iAt1vQ GVyLWNv jBxdrCYgPsXli7gdUGPlZYb iCA2tiDivU4RikKC7JCTxm4 b6Xs79H05rZ4FhuFD+PGNvb ZN0dUL5 hH9nOsPbEnZ7DEvfI588DrO pgFEsVhqyb8jnq4agfFe4Vd I2COVuvzHbgUybMEI7y5JwW e68H22e IHdpZHRoPSIxNSUiIHZhbGl sfy4gkY6qJu4+BLOpyMZ7uJ R3gT6eTvRuPbZ9WTcdI913I nRvcCIv Kkjfo6bfn1rfvOb0UnGmEVG bcySzcMqrTHB0w7IkSq58B0 OxrTfgg9SyXlv6fo27wFBbb 2L9sLB2 B1AoBCQjzmwegNOwwPuwRT1 hHWGlrdyaZAKxvV3qVAVqY8 h9GwDgIpQ3QBplK5LmmbE6L GJvbGQg NZJhrIPFtC8grouux4wattl qChMjRGZhHLr7ELu7AGEjcU qnWbZjZTI0MbI4RUH0tDYaz Z6kiOnv ruzzhC9sUvb+LLV8nPZerRU IQC9kZzegpLR+JGMcKAS2zR lbFEyfYWPmbS6fMFYkA1b3E iAwLjA1 WAjhZ9CgbmM7FHRitTPoYZI vmNDEcG4lwsbqy4byqfzbQh XuZGTnBAa1BAl0WGDlbJnxO iBsZWZ0 VdM4CRH0nGOnaL8urVaohms mfX5bIpz+RypovSjrOYI1UB a3U9UnWqn7VRPofMebKS7hy GFkZGlu Lw0naCduaFbdSZ2gEOBazvj ax952FzIuw6lgWPSmtKEwWF rcMQO7P16vq0H2ZVCcRYFpG OR4cKL0 mE1qzVvznrijgPMsoSmlwgP vnUlyEKqfIWihC219CARhxT vgDaRpHYe2U2JgMku4TKKin ZvgMH2u iVKhEFtsDx2giMgmiErdNW3 lREQhmhsbg753KpJue8sgFA FdfEVrKGwePQR9U18tf6H2A CMwMDAw STZ8hGQ9nO7mrLnbcjcdxVL mdDsgdmVydGljYWwtYWxpZ2 16IISewKfnMeNumXo3E2QxV wp1ANJn kNmgQW8snLJpIOwgWn2ezCk xmLchDS5iZDHwbxhdm894Kx Oob0nhTVOtoHDjUKpuGNY1L 58ot3Y9 UIOqQCCvGWQ3lZL2nN2srOy nbjogbGVmdDsgdmVydGljYW jgKHvwC725FJYegExdUeJsl GllbnQg EPilMPy8K1AgRolflJM+PC9 6ROHxST53fEYsvGIna6freR c5YwZjFDFyOXJ5eMnbLOhut 3JkZXIt I42qwUUcc9X1VKXlnAxgfCY pSiQmzBG1mE7vKBvzmoomv1 tlselrJnewb3tmkx24oF57N 29sIHdp ZHRoPSIzMCUiIHZhbGlnbj0 ieP6lNd0+OKEpkTO3oLJ6uC 9mGDSlSrW0DNntM731KpRrs CIvPjxj b8qjn6sddZq6NhG3IGFnipC ujLoaRNI2c2XqYn80Z68yUH dpZHRoPSIyMCUiIHZhbGlnb l2ewX6z Ii8+CEMpgFC4oBM6rJ4fZiE rXtQ1EYgsY590KuJitYJoDz tnN02wF3ApjIG+QYTpAts3U CBzdHls XV5hqOSiPDojFo8tIXQ6HkL mFpJaWQykL0VqWOUhudjjlh omtVD1NNHjLTGegX71Eb9te DogMTBw fSWGvO5shtowg0ovpnwsCbG hRRKiSYp7OGl9THCpbZrsNg ZiRVS0LsG3ORB1zBRstC3hx Glnbjog tH6sT2YyGDImwxfgOq70mD0 pTqRsBtW3LNhyBby+Q1JBV0 ZPUkQsIEJSRUFOTkUgTUlDS EVMTEU8 G2CkEcb7QBMwbJkkKS2laIJ fMXmkNn5lyZbafQneEV1gCD UhwkgbZRAsvE3dBSAmhJXwl ArsTK9g WMQjeldbp843RfEzOZU3OAL gmFRoU5ThmK5rIjKeVVGaIN BhA5ZqnBRlXRrcP995MTtiL tY3BFZv oeLdW2HgQQKouAtbPoZ7v1B 7Hi5gKy7iNS7eRKk0CJ69HB 86qXCol9F1lOM1M3GvFDKws mctcmln wOD4DTRlIAUuqR86oJKrIVp lRh4os7Z3n223FVIeVQTkpN 77Mq0zkXajTMJzvRKNrY8cx gizx9oe kxfwBfYeEYOaDLs3BTq5ZAK lcGfuSiBtMBQ5PmG9YDN2iF TriZ0hzZrualymwJ9oYze+M jUgWWVh evG0C0IrVty7INDwhDogVX9 knWMuNFdfGh0hgJkcxLvsMQ 6iFZDuclpmHSNyqM9rRHKqk HRvbTog QY1xOHKjxnxxr535AdKcAML 5BVFxlJGhY1GvdS7bSgSkJE YzJWGnY5QcrPHlEAwlL236L GxlZnQ7 JLWqlxSoN6DeGGJvzIbkZsQ 7e8N6Wk4HTH6GSTR5J6ElDi t9SAVenAsyGP8jrHZvEJdqU i2aoRwj tUphEF9yABVvucaxGKGtoB4 hKZFhoWAnxCmqIO5aZPSynf iqh766DjMxWHS4VOQtzIWvP 9WacL2c WmFlWDCrNEVkI6UrkHAoFZt pG849JBcnPaL4DONhpxHaD8 KcSHAucVvqLuH0l8V2Ya1LB DwvdGQ+ KF32df74O1PcSacqKll5FZZ lZBP2wVS2gW4aRHBmUBekh0 E7cKN2U1ZakhIivg3zv5qtV XBzZTog A88kqQWsa1Y0IDVokGV8TPV nbMlaTtEssG21Rzb+PGNvbG sla9JeSobgq6asc2vrpQz8P jMwJSIg hwLpdVqtSHZ0v8CuLl71Z76 sIHdpZHRoPSIzMCUiIHZhbG papg0tsZ6pEb3+VHTeiJU3w EL8sX1e OjXyQiL0YZmuS821ClZkeLI wXleqq3rdw5mozGj2VgAuZV CxgpHqaWkgVCX3t9YgGp82F 2NvbGdy y6QaIdv6hg57bTTcq8Y0vML 4V0QxUASwsqwwcFJijOhgRL 7oVLKjoowqNLGogW9uGNKmF 1q7ZwKp DtP9KLhbD8SecaA6LDOmlMO uSIQhmFVElC2xopugg0booi drXpVyHPYuEGc4GTz7VDBuw WduOiBs WUM9AgZ3WFG7yVWnqB7ciEo zqtvgsI5sQlt+BGj0g2lghX BrJJ1ahNB9KM10VP47xZBdu 2F6dNU9 N8ZwUIWhchqhrxvxaHT3ADJ rHCSisV17Ji6xyWvtGe1zOS QkLTK8EXRgbXVyT7ZqyJ8oS iAjMDAw VVAtK2MweSRhEXpyN609WDr eLqW9KWXflbEeA4GbYVUxiQ biOdG2b9M9Nc3AYY13DL27U Y29mUNa z4M0mYD7H1GnSRNtevrjmlg ihGM2NZTdTAUvxK61Cr7bjT nsOs7dNNZvKOE7HFXfgCDkP 2ZdrY2z PjAvRYZeBGIjL9DznOBbPAv fL588IBlmJtR7ZSIfwmCbW4 UwVQFhxZntXuM1l4S8Yz0WQ g37BW49 JU81nOAgv9G8xDD9D1QsGHF ylqqvdfgezRF1XSMcKQGphI 91Gc2mzCvuGd9yYHNzAGE2S FRpbWVz R1BxjP8lBeUdYKJaTFVnM7S ysYPtUEqqN643TIauFyB7NT DjwpFnD5GtRPAjuWgkLpF6m 6D2Yz8G HYxlwie5P5RzRjtdhRZ+PC9 6FKUjPV52pXYzqACvx4lbrE i1DcXePVReNYQ9yUhwWHfdb 3JkZXIt Y29 (more content not included)... Normal [facility] Progesterone LCon 01-18-2024 Progesterone LC 14.5 ng/mL Invalid Interpretation Code [facility] Comment on above: Result Comment: Foll icular phase 0.1 - 0.9 Luteal phase 1.8 - 23.9 Ovulation phase 0.1 - 12.0 First trimester 11.0 - 44.3 Second trimester 25.4 - 83.3 Third trimester 58.7 - 214.0 Postmenopausal 0.0 - 0.1 Performed At: [facility] [id number] Sarah Beal PhD Ph:[phone] Performed By: #### [id number] #### [facility] (DEFAULT) [address] [place] [address] Provider Orderson 01-17-2024 Provider Orders [id number] 021 [id number]#[id number] [facility] Coding Summaryon 12-21-2023 Coding Summary [facility] QtuotqnsOGn6cHz+PGhlYWQ +NM2IKLInA95vlLAfhZ2kQ2 NMTElOSywgQVBQTElOSyIgb nGvOL6xwGZnBPXa IC8+TD2pFTObIvckgJRwn1X 7jCW9D11ccm3tYQkbcTA9RL QdNgZwebxvi5bvkKc5VZjtZ mluOyBt OBAxmS38HDL2tO05Cm40jXV oiFMhw0oveNy0TnSmUEQgKL O4kPnlFZbwr3UqUZTlH10bz AOzv2K6 FVXvjHkbeOQtLfBekKH5vU2 kDAymewvel3uttkygFpj7ju 12hBWbm8C4dDS9H7SoyrV4V GJvbGQg JtnyoLRYaF3mpwatd6bfuzk mVbYpRBJeTXp8QVv7GDEfnO qxKzVuDD40RGV3QJCnvvFcT 2FsLWFs aOneItP8f6Q5Eq8UZ5GYApc fD1GZWIAWPJdbjLX+PC90cj 94K3BqXeinEtq8DAYzGWQ7n BN7zA4q KQIdFBioy9A9hQM4U2UjioD eua0nz8slPGLnFPvoA04hrD Fry1D5OYHwdNR2WAYskLnxI iBzaG93 Oyc+UPAhdFegc4LqZdmxv0m ou4bpsDq6KzvgNJYqdnGelV kfYCI7y3PzSn6eRPVqpBJ0n UP8dQ3q UwTiFhW5RYfiY734OlMgsOH lRatbB55oK2MipMU+PHRyPj h2JYPbnCxtHP1wQ3WiHRIus mctbGVm fOboEB2hMPGapfwiTYIpcR2 sKQBhH6j8WcLrJaV7VSksZ2 CqIVVbraqhDf66xA0rGvIiE oT5UKdu H4JhinN8UDDemCQvNGveBEL 7C71am2A4POLcLJMgAFX8vG D7tL0wuDvlnihdxTHaqSrmk mVydGlj KKseRYpfP557IMNheOdfAqX vZGluZyBEYXRlOiAgMDQvMT cvMjAyNDwvdGQ+YREtWAO0o WxlPSAn sOZuMHumYc8puMeliEsnML3 eMEZvvrgfXGQojT7iJVZomV OyeHmjZA3xXCBwlhcyg315S iAxMHB0 ILSepNRlR0SwyB1sObMaJOK fVQZeX0RrsPEvYRivN439HC wfTaV1WMQnrrDaE5WnJWMgq WduOiB0 x8J5Ak0Me7KkvmliN9BocWU lXlZcDqknMZf6K3XaAprlvF I+TS28ILDzBC84TWo1WMB0c WxlPSdi VXVzU6ZiwN3aSyVlXNBlYYH kOyc+PHRhYmxlIHdpZHRoPS cnHTYuYpRfrSkaIJ8dOo2oP GVyLWNv xXdzhFMmUbEjd8kxPCRhNNj tSI7fxTwsW9WphXK6URDvf0 b4Pa91Y03vK9AgsNE+PGNvb JV8zAS2 kR0oFxVmQhC2GTxrB559GyZ zrDNxMlvui1nkb5fspGe1Mq Y6AIGtftUlhClzODE4q4DfF z70V46j IHdpZHRoPSIxNSUiIHZhbGl ker9fxP8eEq9+RDVmpVM6hS B7uF9kBqIeGiT4QEtqD800E nRvcCIv Cumji2rec0mshNg1JkNuNDH ehrIzzEayIQI9u4YjMx86F8 ZzvGngj3OdRtr9gh21nKJop 2L4wQQ4 T3VtWLHbzhvlcFVjjBjdGM1 rTUImnhpgQKIgwH2dPUDjQ8 r5SzAvXpC3WXciI1QlkcJ9P GJvbGQg WADboAMCgQ8eacwbq8lihqy eOhQqMCCuIPa5UUw4DLAbgO xxIxDlEKO1NwR5WKH5fRHuj L6vuCsh udrnuQ1aBro+OVV3lMQvuFP RGK7iRdcsaAJ+QKRyDGH1qX zqQWwkJRBknP0aKFGmF9j5R iAwLjA1 XNjfI9SmldO7YMHemYZmGCY mmYJDoA0xnnmvv5urjsaeAn KxWHQaYQu2LNo8XIFvlZgcB iBsZWZ0 BwK7BRN5iZRdpD2yvQtkqar unX6vAcz+GgjwaBxkXJV3SZ p5Q6RaVir6BVCjcDbsUP7nj GFkZGlu Xr5kxLsqcMjpNY5sPFFlywn mq918XqIzj5suHZMtkBKaQO utTKE6F63jj3L4GUAyMCAkF XB3gSA8 uD2poOintmhlqHYoyDqqnhC hjZywRUxfRNguZ701AKBwmF alOfYrYBz1Q8IuWwo9QBYyt KzcRE4e lEUaIBasXc7fwIyvnWojHU3 aBJFpmtwtb774HxUwm3ffXU AipOCbYMojESG2N91bg2P6Y CMwMDAw JLK8bKK7qS8gdApdwfbyaLC mdDsgdmVydGljYWwtYWxpZ2 46FSTxmHqxQvQluWk4T0EjQ pl0NLRs fXxrEH0oiXQnTBgdPh0kuZi twCrpPM6gVPDzxswzw535Hg Ohu1alWDMphQVmLHakMXA9A 63xg3G2 ETTyAVGqYHU9mOF2iY0tvVa nbjogbGVmdDsgdmVydGljYW gfRSixV888UWNprYlxCfPvq GllbnQg FFhqYQc9P6TmJzpbhLR+PC9 4BSOoQY43xBSyiVFlo6zpaP j0InRbKPLbQUM8bDctNUhup 3JkZXIt G31juIIbb2L2ZAWfoTfwaQJ xMrFhaTD9bY1uXEitpifui5 nsqfmaPnnej5zent37eY33A 29sIHdp ZHRoPSIzMCUiIHZhbGlnbj0 rzQ2uQw0+TVYdkNG5jUS4hU 3vEQSoHqL3OVbhM439WrQlr CIvPjxj l6xyi9wguOm3XfH3LUEozyO fqOjuWZN9r2DdBa55H84dJX dpZHRoPSIyMCUiIHZhbGlnb w0mkY5c Ii8+VQCzoUZ8eHX3dL7hUjX tEgU6KMvuW148JuPymBEwDp hfY89nO2YmzQT+OEAhPlp3B CBzdHls MP6djYSxBHieNe7oOWZ7NrV nKaCwTJxwT4CwHNPnauptrm xboQK2IZUmIQIzhY71Iz0lt DogMTBw jWMDdU8jjeetx5pvojctUgY kSZZoPAt0YWd7GXFwkRztKi GtBHZ4DiV9HAJ6lIVmnK0wb Glnbjog bS5vC0PjTCSuotlsLv68bO5 sKpOxQxQ8AVdjZvx+Q1JBV0 ZPUkQsIEJSRUFOTkUgTUlDS EVMTEU8 G6DhPhu2MACewOczLS0nbRS tJCvuLc8tjAhcfKkvUI2vXM FwdsxxHHTbqJ9wFKGvtHVoe KqlOT1j IZDfyctgt416WvBzRIP4OSO irUKsV2BnzA3dAvPdGWByQR ItM1HnwDMzHYigS897CLhbS mR0RKAl gwPyZ4NjMANuaJsrSoJ9w3H 6Wu6dIv7eEB8iIMp3DH40ZR 19wMHjw9X6eJS0D0UaJAOeu mctcmln tSL9EEYtOAXntW96pGCuJHu fXp4gl8I2r826ZQBnZQKpqC 07Sy0uhGrvFLUhkBMOeV1wu mzhv5ax zdlgMaVwDRNfNKo1ZPy5OTH kjEvnNvQzAAN1GeV8FLO3pT XdrN9brYailvsfvZ5uWyy+M jUgWWVh jcN4M7KfCbo0DRJxyLgbPQ6 epYOnKNviEm0xfOjrlSckAC 3aLBIguqjfOSQaxT5iCYMpu HRvbTog HL4mQAKxdqnsh368ZsHmZAJ 2AJLoaRVgV0GkjG0aOeXyMB PoPDXgR6PebVTrODfsY512S GxlZnQ7 MEWeerVmP9KeKXPtoQfeAyK 9e9A6Dz6WOL9VQOB2O2RpNy z1FHCklHrxAN6zqSZyFBioA s5fdXbs kTtbNB4mYIDrwelsJUNvlL7 bWEPrzQDizAkpOX5lEDHulk vxj221EgDzAIQ1LRZbmKYaI 9OyeH5w PiZwRNDyPHZoK5RnnRFeUGh vZ739DTvjVwY9FZWtbzBpJ2 MyCQWjiTstVqB9p2P0Zq4YH DwvdGQ+ OG49oi24L8WyZrdhNsm9JMV vIVU4xBO2uE8gATPcUEhvy8 Q3gWF7B8ZspwLtcr5gx3dqA XBzZTog G30qcUZsq8G4WVIjlQK7DRX tqTbuChOlwV83Amy+PGNvbG iht0HsTgmdl4now2mfsMv6M jMwJSIg wrJifEenNEL0c3NuKe34N79 sIHdpZHRoPSIzMCUiIHZhbG lfpp5qiY6wZj3+OFFkoWH7c BP8zG9p JqMbJkR2FYjkS337NvLjvNP rNdfau5jcc9ugnLi8RvTxHA IlilKbjVofFZR7t2GxYw76C 2NvbGdy l0VcMsu7mx36pJBbj6D3cCU 3L1WrNRFazdorvOOoyDrgTN 4hICNnmmmbCJRrdK7gDYHtM 7l4UoFc SeA0NIwuY0NuumY3CZGrfKG oJZLkyYGAvX3mhoqic8oven noOfBlKWFcKBp8LUh6SZZwq WduOiBs FKC4SgJ4KRY2sAMrfF6asAq aregibF7gSxt+HLl7z7mpiL UeDA0kfZW1YU69MM04mPLqo 4K9nAZ2 P9WmTJXuwsloehtovID4JFR jMQZsnJ73Gq7wdUucLp6vCI AuHLY7QMVtyWJoE6XzxO8zV iAjMDAw XNLpX7JgdEBpXIxyG748TYt aPjZ7PGHfsbHzY6CbFSXqtZ aeZjY5s9V5Gq4DEC19ZU29Z K96uEMk c8P6qGA2Q7XgRXTtlfrbbco maQW3VVYfOAHzyW99Ng6zgX ulLf3qDFGfKVK4XPHtvSKgP 6OtrR0i KmMuLBBrMURwM6HrpQEyOHr bC602LGyvYaO6YFEvzuJeX9 PcCUMzfGqqRnZ5p3D9Go2DW x39HV37 RU09hPZmz3I1uQQ6U2WkNUO wjntkcvuphZG7MLNnOSOovE 70Ey8ykNbbXd0eOFVnLKW5F FRpbWVz Y4ZbeV4sQuJmFQGnOIBjD3P qpGZgZQyrL269SJqsXcV1XW PbbcGaW5BrSURjeGkzCsO8b 3I6Za4R RWiobsc2Q2GuUphkjLM+PC9 5FKXbYK68xMGgiVCbo1vszK g9UhHdGHTlIHZ1fEokRPysu 3JkZXIt Y29 (more content not included)... [facility] Progesterone LCon 12-17-2023 Progesterone LC 9.6 ng/mL Invalid Interpretation Code [facility] Comment on above: Result Comment: Foll icular phase 0.1 - 0.9 Luteal phase 1.8 - 23.9 Ovulation phase 0.1 - 12.0 First trimester 11.0 - 44.3 Second trimester 25.4 - 83.3 Third trimester 58.7 - 214.0 Postmenopausal 0.0 - 0.1 Performed At: [facility] [address], [place] [id number] Sarah Beal PhD Ph:[phone] Performed By: #### [id number] #### [facility] (DEFAULT) [address] [place] [address] Provider Orderson 12-16-2023 Provider Orders [id number] TGTIFF [facility] Mikael 01-04-2022 L --- Specimen: [id number] Received: 01/05/22 Status: QUOC Rawls Num: [id number] Spec Type: Surgical Subm Dr: Rodney Lema MD Tissues: A Skin-Other than Cyst, tag, debridement or plastic repair (SCALP) Procedures: HE Stain/5, Gross/Micro L4 Patient Age/Sex Location Account Attending Physician Sherly Erickson / LATESHA [id number] Rodney Lema MD SPEC NUM: [id number] RECD: 01/05/22 STATUS: QUOC RAWLS NUM: [id number] JANE: 01/04/[address] [facility] [address]: Rodney Lema MD ENTERED: 01/05/22 [facility] DR: Dea,Amy SPEC TYPE: Surgical DEPT: MAG [...] Fixative: 10% Neutral Buffered Formalin (ESTELA/YJ) Specimen: [id number] Received: 01/05/22 Status: QUOC Rawls Num: [id number] Spec Type: Surgical Subm Dr: Rodney Lema MD Tissues: A Skin-Other than Cyst, tag, debridement or plastic repair (SCALP) Procedures: HE Stain/5, Gross/Micro L4 Patient: Sherly Erickson [id number] (Continued) Specimen: [id number] Received: 01/05/22 (Continued) Signed (signature on file) Debora Cintron MD 01/07/22929 Specimen: [id number] Received: 01/05/22 Status: QUOC Rawls Num: [id number] Spec Type: Surgical Subm Dr: Rodney Lema MD Tissues: A Skin-Other than Cyst, tag, debridement or plastic repair (SCALP) Procedures: JASWINDER Stain/5, Gross/Micro L4 Patient: Sherly Erickson [id number] (Continued) Specimen: [id number] Received: 01/05/22 (Continued) Microscopic Description Six glass slides with H E stained material and two IHC stained slides have been examined. The microscopic findings support the above pathologic diagnosis. ANALYTE SPECIFIC REAGENT (ASR) DISCLAIMER: The use of one or more reagents in the above tests is regulated as an analyte specific reagent (ASR). The performance characteristics were determined by the [facility] of [facility]. Immunohistochemistry assays have not been validated on decalcified tissue. Results should be interpreted with caution given the possibility of false negative results on decalcified specimens. They have not been cleared by the [place] Food and Drug Administration. The FDA has determined that such clearance or approval is not necessary. CPT Codes 23268, 11973, 87965 Specimen: [id number] Received: 01/05/22 Status: QUOC Rawls Num: [id number] Spec Type: Surgical Subm Dr: Rodney Lema MD Tissues: A Skin-Other than Cyst, tag, debridement or plastic repair (SCALP) Procedures: HE Stain/5, Gross/Micro L4 Patient: Sherly Erickson [id number] (Continued) Signed (signature on file) Debora Muller (more content not included)... [facility] Cytology Cervical or vaginal smear or scraping studyon 12-26-2019 [facility] [facility] Vital Signs Date Time Vital Sign Value Performing Clinician Facility 12-18-2024 13:53-0400 Body mass index (BMI) [Ratio] 44.95 kg/m2 [employer] Work Phone: [facility] 12-18-2024 13:53-0400 Body weight 130.18 kg [employer] Phone: [facility] 12-18-2024 13:53-0400 Diastolic blood pressure 90 mm[Hg] [employer] Phone: [facility] 12-18-2024 13:53-0400 Systolic blood pressure 130 mm[Hg] [employer] Work Phone: [facility] [email or web address] 12-11-2024 13:39-0400 Body mass index (BMI) [Ratio] 45.53 kg/m2 [employer] Phone: [facility] 12-11-2024 13:39-0400 Body weight 131.86 kg [employer] Phone: [facility] 12-11-2024 13:39-0400 Diastolic blood pressure 78 mm[Hg] Cole Celeste DO Work Phone: [facility] 12-11-2024 13:39-0400 Systolic blood pressure 126 mm[Hg] Cole Celeste DO Work Phone: [facility] 12-04-2024 09:01-0400 Body mass index (BMI) [Ratio] 44.95 kg/m2 Emily [place] PA Work Phone: [facility] 12-04-2024 09:01-0400 Body weight 130.18 kg Emily [place] PA Work Phone: [facility] 12-04-2024 09:01-0400 Diastolic blood pressure 86 mm[Hg] Emily Favian PA Work Phone: [facility] 12-04-2024 09:01-0400 Systolic blood pressure 130 mm[Hg] Emily Medranoey PA Work Phone: [facility] 11-22-2024 12:01-0400 Body height 170.2 cm Ahmet Soler MD Work Phone: [facility] 11-22-2024 12:01-0400 Body mass index (BMI) [Ratio] 45.11 kg/m2 Ahmet Soler MD Work Phone: [facility] 11-22-2024 12:01-0400 Body weight 130.64 kg Ahmet Soler MD Work Phone: [facility] 11-22-2024 12:01-0400 Diastolic blood pressure 80 mm[Hg] Ahmet Soler MD Work Phone: [facility] 11-22-2024 12:01-0400 Heart rate 90 /min Ahmet Soler MD Work Phone: [facility] 11-22-2024 12:01-0400 Systolic blood pressure 115 mm[Hg] Ahmet Soler MD Work Phone: [facility] 11-20-2024 08:32-0400 Body mass index (BMI) [Ratio] 44.64 kg/m2 Cole Celeste DO Work Phone: [facility] 11-20-2024 08:32-0400 Body weight 129.28 kg Cole Celeste DO Work Phone: [facility] 11-20-2024 08:32-0400 Diastolic blood pressure 90 mm[Hg] Cole Celeste DO Work Phone: [facility] Comment on above: 118/86 second BP 11-20-2024 08:32-0400 Systolic blood pressure 136 mm[Hg] Cole Celeste DO Work Phone: [facility] Comment on above: 118/86 second BP 11-06-2024 08:46-0500 Body mass index (BMI) [Ratio] 44.01 kg/m2 Emily Ballesteros PA Work Phone: [facility] 11-06-2024 08:46-0500 Body weight 127.46 kg Emily Favian PA Work Phone: [facility] 11-06-2024 08:46-0500 Diastolic blood pressure 76 mm[Hg] Emily [place] PA Work Phone: [facility] 11-06-2024 08:46-0500 Systolic blood pressure 128 mm[Hg] Emily [place] PA Work Phone: [facility] 10-22-2024 14:46-0500 Body mass index (BMI) [Ratio] 43.04 kg/m2 Cole Celeste DO Work Phone: [facility] 10-22-2024 14:46-0500 Body weight 124.65 kg Cole Celeste DO Work Phone: [facility] 10-22-2024 14:46-0500 Diastolic blood pressure 70 mm[Hg] Cole Celeste DO Work Phone: [facility] 10-22-2024 14:46-0500 Systolic blood pressure 116 mm[Hg] Cole Celeste DO Work Phone: [facility] 10-08-2024 13:57-0500 Body mass index (BMI) [Ratio] 42.15 kg/m2 Emily Ballesteros PA Work Phone: [facility] 10-08-2024 13:57-0500 Body weight 122.07 kg Emily Ballesteros PA Work Phone: [facility] 10-08-2024 13:57-0500 Diastolic blood pressure 82 mm[Hg] Emily Ballesteros PA Work Phone: [facility] 10-08-2024 13:57-0500 Systolic blood pressure 122 mm[Hg] Emily Ballesteros PA Work Phone: [facility] 09-10-2024 14:35-0500 Body mass index (BMI) [Ratio] 40.94 kg/m2 Cole Celeste DO Work Phone: [facility] 09-10-2024 14:35-0500 Body weight 118.57 kg Cole Celeste DO Work Phone: [facility] 09-10-2024 14:35-0500 Diastolic blood pressure 76 mm[Hg] Cole Celeste DO Work Phone: [facility] 09-10-2024 14:35-0500 Systolic blood pressure 118 mm[Hg] Cole Celeste DO Work Phone: [facility] 08-08-2024 11:09-0500 Body mass index (BMI) [Ratio] 39.37 kg/m2 Cole Celeste DO Work Phone: [facility] 08-08-2024 11:09-0500 Body weight 114.03 kg Cole Celeste DO Work Phone: [facility] 08-08-2024 11:09-0500 Diastolic blood pressure 72 mm[Hg] Cole Celeste DO Work Phone: [facility] 08-08-2024 11:09-0500 Systolic blood pressure 120 mm[Hg] Cole Celeste DO Work Phone: [facility] 07-10-2024 10:45-0500 Body mass index (BMI) [Ratio] 38.37 kg/m2 Cole Celeste DO Work Phone: [facility] 07-10-2024 10:45-0500 Body weight 111.13 kg Cole Celeste DO Work Phone: [facility] 07-10-2024 10:45-0500 Diastolic blood pressure 74 mm[Hg] Cole Celeste DO Work Phone: [facility] 07-10-2024 10:45-0500 Systolic blood pressure 118 mm[Hg] Cole Celeste DO Work Phone: [facility] 06-07-2024 13:09-0400 Body mass index (BMI) [Ratio] 38.53 kg/m2 [facility] 06-07-2024 13:09-0400 Body weight 111.58 kg [facility] Nurse [facility] 06-07-2024 13:09-0400 Diastolic blood pressure 72 mm[Hg] Nom Nurse [facility] 06-07-2024 13:09-0400 Systolic blood pressure 116 mm[Hg] Nom Nurse [facility] 05-08-2024 11:32-0400 Body height 170.2 cm Cole Celeste DO Work Phone: [facility] 05-08-2024 11:32-0400 Body mass index (BMI) [Ratio] 39.16 kg/m2 Cole Celeste DO Work Phone: [facility] 05-08-2024 11:32-0400 Body weight 113.4 kg Cole Celeste DO Work Phone: [facility] 05-08-2024 11:32-0400 Diastolic blood pressure 80 mm[Hg] Cole Celeste DO Work Phone: [facility] 05-08-2024 11:32-0400 Systolic blood pressure 124 mm[Hg] Cole Celeste DO Work Phone: [facility] 10-06-2023 08:53-0500 Body height 170.2 cm Cole Celeste DO Work Phone: [facility] 10-06-2023 08:53-0500 Body mass index (BMI) [Ratio] 38.28 kg/m2 Cole Celeste DO Work Phone: [facility] 10-06-2023 08:53-0500 Body weight 110.86 kg Cole Celeste DO Work Phone: [facility] 10-06-2023 08:53-0500 Diastolic blood pressure 72 mm[Hg] Cole Celeste DO Work Phone: [facility] 10-06-2023 08:53-0500 Systolic blood pressure 120 mm[Hg] Cole Celeste DO Work Phone: [facility] Encounters Encounter Date Encounter Type Care Provider Facility Start: 12-18-2024 End: 12-18-2024 Bamboo flowsheet Cole Celeste DO Work Phone: [facility] Start: 12-18-2024 End: 12-18-2024 Bamboo flowsheet Cole Celeste DO Work Phone: [facility] Start: 12-18-2024 End: 12-18-2024 Office outpatient visit 15 minutes Cole Celeste DO Work Phone: [facility] Comment on above: Third trimester preg maicol; 36 weeks gestation of Start: 12-18-2024 End: 12-18-2024 ambulatory COLE CELESTE Not Available Start: 12-17-2024 End: 12-17-2024 Clinisync Result Encounter Cole Celeste DO Work Phone: [facility] External Department Unsolicited Start: 12-17-2024 End: 12-17-2024 Clinisync Result Encounter Cole Celeste DO Work Phone: [facility] External Department Unsolicited Start: 12-11-2024 End: 12-11-2024 Bamboo flowsheet Cole Celeste DO Work Phone: [facility] Start: 12-11-2024 End: 12-11-2024 Bamboo [...] 12-04-2024 Bamboo flowsheet Emily TALBERT Work Phone: [facility] Start: 12-04-2024 End: 12-04-2024 Bamboo flowsheet Emily TALBERT Work Phone: [facility] Start: 12-04-2024 End: 12-04-2024 Office outpatient visit 15 minutes Emily TALBERT Work Phone: [facility] Comment on above: Third trimester preg maicol; 34 weeks gestation of ; Gestational diabetes mellitus (GDM) affecting ; Gestational diabetes mellitus (GDM), antepartum, gestational diabetes method of control unspecified Start: 12-04-2024 End: 12-04-2024 ambulatory EMILY BALLESTEROS Not Available Start: 12-03-2024 End: 12-03-2024 Clinisync Result Encounter Cole Celeste DO Work Phone: [facility] External Department Unsolicited Start: 12-03-2024 End: 12-03-2024 Clinisync Result Encounter Cole Celeste DO Work Phone: [facility] External Department Unsolicited Start: 12-03-2024 End: 12-03-2024 ambulatory [facility] Start: 11-26-2024 End: 11-26-2024 Clinisync Result Encounter Cole Celeste DO Work Phone: [facility] External Department Unsolicited Start: 11-26-2024 End: 11-26-2024 Clinisync Result Encounter Cole Celeste DO Work Phone: [facility] External Department Unsolicited Start: 11-22-2024 End: 11-22-2024 Office consultation new/estab patient 60 min Bandar Darden MD Work Phone: [facility] Comment on above: Polyhydramnios affec ting in third trimester (Primary Dx); PCOS (polycystic ovarian syndrome) Start: 11-22-2024 End: 11-22-2024 ambulatory [facility] Start: 11-20-2024 End: 11-20-2024 Office [...] screening Start: 11-06-2024 End: 11-06-2024 ambulatory EMILY BALLESTEROS Not Available Start: 10-25-2024 ambulatory Kulwant Bodie Facility: [facility] Start: 10-24-2024 End: 10-24-2024 Clinisync Result Encounter Emily TALBERT Work Phone: [facility] External Department Unsolicited Start: 10-24-2024 End: 10-24-2024 Clinisync Result Encounter Emily TALBERT Work Phone: [facility] External Department Unsolicited Start: 10-24-2024 End: 10-24-2024 ambulatory [facility] Start: 10-22-2024 End: 10-22-2024 Office outpatient [...] [facility] Start: 10-18-2024 End: 10-18-2024 ambulatory [facility] Start: 10-15-2024 End: 10-15-2024 Chart abstracting Scanning Provider External [facility] Start: 10-08-2024 End: 10-08-2024 Bamboo flowsheet Emily TALBERT Work Phone: [facility] Start: 10-08-2024 End: 10-08-2024 Bamboo flowsheet Emily TALBERT Work Phone: [facility] Start: 10-08-2024 End: 10-08-2024 Office outpatient visit 15 minutes Emily TALBERT Work Phone: [facility] Comment on above: Third trimester preg maicol; 26 weeks gestation of ; Diabetes mellitus screening Start: 10-08-2024 End: 10-08-2024 ambulatory EMILY BALLESTEROS Not Available Start: 10-06-2024 ambulatory [facility] Facility: [facility] Start: 09-24-2024 ambulatory [facility] Facility: [facility] Start: 09-10-2024 End: 09-10-2024 Clinisync Result [...] 08-08-2024 End: 08-15-2024 External Result Encounter Emily Favian TALBERT Work Phone: [facility] External Department Unsolicited [...] encounter procedure Cole Celeste DO Work Phone: [facility] Work Phone: Start: 08-08-2024 End: 08-08-2024 ambulatory [...] Not Available Start: 07-05-2024 End: 07-05-2024 ambulatory Rahda Santo Jason Facility:[facility] Start: 07-04-2024 End: 07-04-2024 Clinisync Result Encounter Cole Celeste DO Work Phone: [facility] External Department Unsolicited Start: 07-04-2024 End: 07-04-2024 Clinisync Result Encounter Cole Celeste DO Work Phone: [facility] External Department Unsolicited Start: 06-07-2024 End: 06-07-2024 ambulatory [facility] Celeste Nurse [facility] Comment on above: GA: 8w6d Start: 06-01-2024 End: 06-01-2024 ambulatory Radha Mendoza Facility:[facility] Start: 05-28-2024 End: 05-28-2024 Emergency department patient visit Kulwant Jason Facility:[facility] Start: 05-28-2024 End: 05-28-2024 ambulatory Radha Santo [facility] Facility:[facility] Start: 05-08-2024 End: 05-08-2024 Bamboo flowsheet [...] encounter procedure Kenya Richter DDS Work Phone: [facility] Oral Surgery Comment on above: Abnormal tooth erupt ion (Primary Dx); Impacted third molar tooth Start: 04-24-2024 ambulatory KENYA RICHTER Facili ty:[facility] Start: 03-14-2024 End: 03-14-2024 ambulatory Kulwant Jason Facility:[facility] Start: 02-14-2024 End: 02-14-2024 ambulatory Radha Mendoza Facility:[facility] Start: 01-17-2024 End: 01-17-2024 ambulatory Radha Mendoza Facility:[facility] Start: 12-16-2023 End: 12-16-2023 ambulatory Radha Mendoza Facility:[facility] Start: 10-06-2023 End: 10-06-2023 Office outpatient [...] 09-10-2024 TB DRUG SCREEN RAPI D (URINE) Coel Celeste DO Work Phone: Start: 08-10-2024 GLUCOSE [...] t hin layer prep mnl screen Deana Linares DO Work Phone: Plan of Treatment Date Care Activity Detail Author Start: 2048 Shingles (RZV) Vacci ne (1 of 2) Shingles (RZV) Vaccine (1 of 2) [facility] Start: 11-18-2033 DTaP,Tdap and Td Vaccines (9 - Td or Tdap) DTaP,Tdap and Td Vaccines (9 - Td or Tdap) [facility] Start: 08-08-2027 Screening for malign ant neoplasm of cervix Pap Smear [facility] Start: 11-22-2025 Adult BMI Screening Adult BMI Screen ing [facility] Start: 11-22-2025 Tobacco Screening Tobacco Screening [facility] Start: 05-06-2025 Influenza vaccination Influenz a Vaccine (Season Ended) [facility] Start: 12-26-2024 End: 12-26-2024 Professional / ancillary services management 12/26/2024 11:30 AM EDT Ancillary Procedure [facility] [address] [id number] [facility] Start: 12-25-2024 End: 12-25-2024 Patient encounter procedure 12/25/2024 1:30 PM EDT Routine [facility] [address] [place] [id number] Cole Alonso, DO [address], [place] [address] [facility] Start: 12-18-2024 End: 12-18-2025 CULTURE, GROUP B STREP WITH SUSCEPTIBLITY CULTURE, GROUP B STREP WITH SUSCEPTIBLITY Lab Routine Third trimester Expected: 12/18/2024, Expires: 12/18/2025 [facility] Work Phone: Comment on above: Expected: [...] AM EDT Routine [facility] [address] [place] [id number] Cole Alonso, DO [address] [place] [address] [facility] Start: 11-06-2024 End: 11-06-2025 Measurement of glucose 1 hour after glucose challenge for glucose tolerance test Glucose tolerance, 1 hour Lab Routine Diabetes mellitus screening Expected: 11/06/2024 (Approximate), Expires: 11/06/2025 [facility] Comment on above: Expected: 11/06/2024 (Approximate), [...] 10/18/2024 1:00 PM EST Appointment [facility] [place] [address] [place] [address] [facility] [place] Start: 10-08-2024 End: 10-08-2025 CBC panel - [...] mellitus screening Expected: 10/08/2024 (Approximate), Expires: 10/08/2025 [facility] Comment on above: Expected: 10/08/2024 (Approximate), Expires: 10/08/2025 Start: 10-08-2024 End: 10-08-2024 Patient encounter procedure [facility] Comment on above: Arrived Start: 09-10-2024 End: 09-10-2025 Drugs of abuse panel - Urine by Screen method Rapid drug screen, urine Lab Routine , unspecified gestational age Encounter for supervision of normal first in first trimester Expected: 09/10/2024 (Approximate), Expires: 09/10/2025 [facility] Work Phone: Comment on above: Expected: 09/10/2024 (Approximate), Expires: 09/10/2025 Start: 09-10-2024 End: 09-10-2024 Patient encounter procedure 09/10/2024 2:00 PM EST Routine [facility] [address] [phone] Cole Alonso, DO [address] [address] [facility] Start: 09-10-2024 End: 09-10-2024 Professional / ancillary services management 09/10/2024 1:00 PM EST Ancillary Procedure [facility] [address] [phone] [facility] Start: 08-08-2024 End: 02-06-2025 Alpha fetoprotein, maternal Alpha fetoprotein, maternal Lab Routine Second trimester 17 weeks gestation of Expected: 08/08/2024 (Approximate), Expires: 02/06/2025 [facility] Comment on above: Expected: 08/08/2024 (Approximate), Expires: 02/06/2025 Start: 08-08-2024 End: 08-08-2025 Measurement of glucose 3 hours after glucose challenge for glucose tolerance test Glucose tolerance, 3 hours Lab Routine Elevated glucose tolerance test Expected: 08/08/2024 (Approximate), Expires: 08/08/2025 [facility] Comment on above: Expected: 08/08/2024 (Approximate), Expires: 08/08/2025 Start: 08-08-2024 End: 08-08-2025 US for US OB ANATOMY SINGLE W US OB CERVICAL LENGTH Imaging Routine Screening, , for anatomic survey Expected: 08/08/2024 (Approximate), Expires: 08/08/2025 [facility] Comment on above: Expected: 08/08/2024 (Approximate), Expires: 08/08/2025 Start: 08-08-2024 End: 08-08-2024 Patient encounter procedure [facility] Comment on above: Arrived Start: 07-10-2024 End: 07-10-2025 Measurement of glucose 1 hour after glucose challenge for glucose tolerance test Glucose tolerance, 1 hour Lab Routine Diabetes mellitus screening Expected: 07/10/2024 (Approximate), Expires: 07/10/2025 [facility] Work Phone: Comment on above: Expected: 07/10/2024 (Approximate), Expires: 07/10/2025 Start: 07-10-2024 End: 07-10-2024 Patient encounter procedure [facility] Comment on above: Arrived Start: 07-04-2024 End: 07-04-2024 Patient encounter procedure 07/04/2024 3:00 PM EDT Office Visit [facility] Oral Surgery [address] [place] [address] Kenya Richter, DDS [address] [place], [place] [id number] [facility] Start: 06-07-2024 End: 06-07-2025 ABO/Rh ABO/Rh Lab Routine Missed menses , unspecified gestational age Expected: 06/07/2024 (Approximate), Expires: 06/07/2025 [facility] Comment on above: Expected: 06/07/2024 (Approximate), Expires: 06/07/2025 Start: 06-07-2024 End: 06-07-2025 Blood type and Indirect antibody screen panel - Blood Type and screen Lab Routine Missed menses , unspecified gestational age Expected: 06/07/2024 (Approximate), Expires: 06/07/2025 [facility] Work Phone: Comment on above: Expected: 06/07/2024 (Approximate), Expires: 06/07/2025 Start: 06-07-2024 End: 06-07-2025 Drugs of abuse panel - Urine by Screen method Rapid drug screen, urine Lab Routine , unspecified gestational age Encounter for supervision of normal first in first trimester Expected: 06/07/2024 (Approximate), Expires: 06/07/2025 [facility] Comment on above: Expected: 06/07/2024 (Approximate), Expires: 06/07/2025 Start: 06-07-2024 End: 06-07-2025 US Pelvis transvaginal US OB transvaginal Imaging Routine Missed menses Expected: 06/07/2024 (Approximate), Expires: 06/07/2025 [facility] Comment on above: Expected: 06/07/2024 (Approximate), Expires: 06/07/2025 Start: 06-07-2024 End: 06-07-2024 ambulatory 06/07/2024 1:00 PM EDT Initial [facility] [address] [place] [phone] [facility] Start: 06-07-2024 End: 06-07-2024 Professional / ancillary services management 06/07/2024 12:30 PM EDT Ancillary Procedure [facility] [address] [place] [phone] [facility] Start: 06-05-2024 Influenza vaccination Influenza Vacc ine (#1) [facility] Start: 05-08-2024 End: 05-08-2024 Patient encounter procedure 05/08/2024 11:20 AM EDT Office Visit [facility] [address] [place] [phone] Cole Alonso, DO [address] [place] [address] Arrived [facility] Comment on above: Arrived Start: 05-06-2024 Influenza vaccination P [facility] Start: 11-03-2023 End: 11-03-2023 Patient encounter procedure 11/03/2023 8:30 AM EST Office Visit [facility] [address] [place] [phone] Cole Alonso, DO [address] [place] [address] [facility] Start: 10-17-2023 End: 10-17-2023 Professional / ancillary services management 10/17/2023 8:30 AM EST Ancillary Procedure [facility] [address] [place] [address] [facility] Start: 05-06-2023 COVID-19 Vaccine (1 - 2023-24 season) COVID-19 Vaccine ( season) [facility] Start: 2019 Screening for malign ant neoplasm of cervix Pap Smear [facility] Start: 2017 DTaP,Tdap and Td Vaccines (1 - Tdap) DTaP,Tdap and Td Vaccines (1 - Tdap) [facility] Start: 2017 Hepatitis A (HAV) Vaccine (optional start 19+ years) Hepatitis A (HAV) Vaccine (optional start 19+ years) [facility] Start: 2017 Hepatitis B vaccination Hepati tis B (HBV) Vaccine (1 of 3 - 19+ 3-dose series) [facility] Start: 2016 Adult BMI Follow Up Plan Adult BMI F ollow Up Plan [facility] Start: 2016 Adult BMI Screening Adult BMI Screen ing [facility] Start: 2016 Hepatitis C screening Hepatitis C An tibody [facility] Start: 2016 Tetanus + diphtheria + acellular pertussis vaccine (product) Tdap Booster [facility] Start: 2013 Vaccination for volodymyr n papillomavirus HPV Vaccine (1 - 3-dose series) [facility] Start: 2010 Depression Screening Depression Scre ening [facility] Start: 2010 Tobacco Screening Tobacco Screening [facility] Antimullerian hormon e (AMH) Antimullerian hormone (AMH) Lab Routine Irregular periods/menstrual cycles Ordered: 10/06/2023 [facility] Comment on above: Ordered: 10/06/2023 Bacteria identified in Urine by Culture Urine culture Microbiology Routine Missed menses Ordered: 06/07/2024 [facility] Comment on above: Ordered: 06/07/2024 CBC W Auto Different ial panel - Blood CBC and differential Lab Routine PCOS (polycystic ovarian syndrome) Ordered: 10/06/2023 [facility] Comment on above: Ordered: 10/06/2023 CBC W Auto Different ial panel - Blood CBC and differential Lab Routine Missed menses , unspecified gestational age Ordered: 06/07/2024 [facility] Comment on above: Ordered: 06/07/2024 CHLAMYDIA TRACHOMATI S (GENITO/STI) CHLAMYDIA TRACHOMATIS (GENITO/STI) Lab Routine STD exposure Ordered: 08/08/2024 [facility] Comment on above: Ordered: 08/08/2024 Cytology Cervical or vaginal smear or scraping study Pap Smear Pathology and Cytology Routine Well woman exam with routine gynecological exam Ordered: 08/08/2024 [facility] Comment on above: Ordered: 08/08/2024 DHEA DHEA Lab Routine PCOS (polycystic ovarian syndrome) Ordered: 10/06/2023 [facility] Comment on above: Ordered: 10/06/2023 DHEA-sulfate DHEA-sulfate Lab Routine PCOS (polycystic ovarian syndrome) Ordered: 10/06/2023 [facility] Comment on above: Ordered: 10/06/2023 Follicle stimulating hormone Follicle stimulating hormone Lab Routine PCOS (polycystic ovarian syndrome) Ordered: 10/06/2023 [facility] Comment on above: Ordered: 10/06/2023 hCG, quantitative, hCG, quantitative, Lab Routine PCOS (polycystic ovarian syndrome) Ordered: 10/06/2023 [facility] System Work Phone: Comment on above: Ordered: 10/06/2023 Hemoglobin A1c measurement Hemoglobin A1c Lab Routine Irregular periods/menstrual cycles Ordered: 10/06/2023 [facility] Comment on above: Ordered: 10/06/2023 Hemoglobin A1c/Hemoglobin.total in Blood Hemoglobin A1c Lab Routine Missed menses , unspecified gestational age Ordered: 06/07/2024 [facility] Comment on above: Ordered: 06/07/2024 Hepatitis B virus surface Ag [Presence] in Serum or Plasma by Immunoassay Hepatitis B surface antigen Lab Routine Missed menses , unspecified gestational age Ordered: 06/07/2024 [facility] Comment on above: Ordered: 06/07/2024 Hepatitis C virus Ab [Presence] in Serum or Plasma by Immunoassay Hepatitis C antibody Lab Routine Missed menses , unspecified gestational age Ordered: 06/07/2024 [facility] Comment on above: Ordered: 06/07/2024 HIV-1/HIV-2 antigen/antibody combination immunoassay HIV-1 and HIV-2 antibodies Lab Routine Missed menses , unspecified gestational age Ordered: 06/07/2024 [facility] Comment on above: Ordered: 06/07/2024 Luteinizing hormone Luteinizing hormone Lab Routine PCOS (polycystic ovarian syndrome) Ordered: 10/06/2023 [facility] Comment on above: Ordered: 10/06/2023 Neisseria gonorrhoea e DNA [Presence] in Unspecified specimen by ISHA with probe detection Neisseria gonorrhea DNA probe, direct Lab Routine STD exposure Ordered: 08/08/2024 [facility] Comment on above: Ordered: 08/08/2024 Reagin Ab [Presence] in Serum by RPR RPR Lab Routine Missed menses , unspecified gestational age Ordered: 06/07/2024 [facility] Comment on above: Ordered: 06/07/2024 Rubella antibody, IgG Rubella an tibody, IgG Lab Routine Missed menses , unspecified gestational age Ordered: 06/07/2024 [facility] Comment on above: Ordered: 06/07/2024 SURESWAB(R) ADVANCED VAGINITIS PLUS, TMA SURESWAB(R) ADVANCED VAGINITIS PLUS, TMA Pathology and Cytology Routine Vaginal discharge Ordered: 08/08/2024 [facility] Work Phone: Comment on above: Ordered: 08/08/2024 Thyrotropin [Units/volume] in Serum or Plasma TSH Lab Routine PCOS (polycystic ovarian syndrome) Ordered: 10/06/2023 [facility] Comment on above: Ordered: 10/06/2023 Thyroxine (T4) free [Mass/volume] in Serum or Plasma T4, free Lab Routine PCOS (polycystic ovarian syndrome) Ordered: 10/06/2023 [facility] Comment on above: Ordered: 10/06/2023 US for US PELVIS-TRANS VAG IF INDICATED Imaging Routine PCOS (polycystic ovarian syndrome) Ordered: 10/06/2023 [facility] Comment on above: Ordered: 10/06/2023 Immunizations Immunization Date Immunization Notes Care Provider Shaina marley 06-12-2020 influenza virus vacc ine, unspecified formulation Cole Alonso DO Work Phone: [facility] Payers Date Payer Category Payer [employer] juan [place] [id number] 2022 Medicaid [id number] 2022 Medicaid [id number] 2000 Unknown [id number] 2.16.840.1.796848.3.579.2. 732 1998 Unknown [id number] 2.16.840.1.804428.3.579.2. 1285 1998 Unknown [id number] 2.16.840.1.823088.3.579.2. 1285 1998 Unknown [id number] 2.16.840.1.383285.3.579.2. 1285 1998 Unknown [id number] 2.16.840.1.170292.3.579.2. 1998 Unknown [id number] 2.16.840.1.001578.3.579.2. 1998 Unknown [id number] 2.16.840.1.707783.3.579.2. 8 1998 Unknown [id number] 2.16.840.1.147956.3.579.2. 1998 Unknown [id number] 2.16.840.1.913057.3.579.2. 1998 Unknown [id number] 2.16.840.1.005877.3.579.2. 1998 Unknown [id number] 2.16.840.1.858354.3.579.2. 1998 Unknown [id number] 2.16.840.1.629394.3.579.2. 1998 Unknown [id number] 2.16.840.1.148949.3.579.2. 8 1998 Unknown [id number] 2.16.840.1.226978.3.579.2. 1998 Unknown [id number] 2.16.840.1.867169.3.579.2. 1998 Unknown [id number] 2.16.840.1.590456.3.579.2. 1258 1998 Unknown [id number] 2.16.840.1.557100.3.579.2. 1258 1998 Unknown [id number] 2.16.840.1.757406.3.579.2. 1258 1998 Unknown [id number] 2.16.840.1.283185.3.579.2. 1258 1998 Unknown [id number] 2.16.840.1.405272.3.579.2. 1258 1998 Unknown [id number] 2.16.840.1.844847.3.579.2. 1258 1998 Unknown [id number] 2.16.840.1.046089.3.579.2. 1258 1998 Unknown [id number] 2.16.840.1.314745.3.579.2. 1258 1998 Unknown [id number] 2.16.840.1.997703.3.579.2. 1258 1998 Unknown [id number] 2.16.840.1.723630.3.579.2. 1258 1998 Unknown [id number] 2.16.840.1.604123.3.579.2. 1258 1998 Unknown [id number] 2.16.840.1.769561.3.579.2. 1258 1998 Unknown [id number] 2.16.840.1.721042.3.579.2. 9 Social History Date Type Detail Facility Start: 09-15-2023 End: 05-08-2024 Tobacco smoking status [facility] Ex-smoker [facility] History of tobacco use Current smoker [facility] History of tobacco use Cigarette Smoker [facility] Start: 10-06-2023 End: 12-11-2024 Alcohol intake Lifetime non-drinker (finding) [facility] Start: 09-15-2023 End: 05-08-2024 History of Social function [facility] Start: 09-15-2023 End: 05-08-2024 Tobacco use panel [facility] Start: 09-15-2023 Alcohol Comment caffeine: 1-2 cups per day [facility] Start: 2000 Sex Assigned At Not on file [facility] Tobacco smoking stat [facility] Tobacco smoking consumption unknown [facility] Start: 05-08-2024 End: 10-15-2024 Tobacco use and exposure Smokeless tobacco non-user [facility] Start: 04-20-2024 [facility] Start: 10-15-2024 End: 11-22-2024 Alcoholic beverage intake Ex-drinker (finding) [facility] Unknown [facility] Start: 12-03-2019 Sex Female (finding) [facility] Medical Equipment Procedure Code Equipment Code Equipment Origin al Text Equipment Identifier Dates Check blood gluc ose using test strips fasting and 1 hour after each meal. Four to 5 times a day per insurance preferences [id number] Start: 11-22-2024 Use it to check fingerstick blood glucose 4 times a day fasting and 1 hour after each meal. Dispensed per insurance preference [id number] Start: 11-22-2024 Use as instructed [id number] Start: 12-04-2024 Use as instructed [id number] Start: 12-12-2024 Clinical Notes 10-06-2023 to 12-18-2024 Bailey Xavier LPN - 12/18/2024 1:30 PM Lakeshia Xavier LPN - 12/11/2024 1:30 PM NITISH Negrete - 12/04/2024 8:40 AM EDBeck Aranda CMA - 11/22/2024 11:30 AM EDT Note Date & Type Note Facility 12-18-2024 History of Present illness Narrative Reason for Appointment: Patient ID: Sherly Erickson is a 24 y.o. female who presents [...] nursing note reviewed. Exam conducted with a aircraft engine dismantler present. Vitals: Estimated body mass index is [...] Cole Alonso DO documented in this encounter [facility] 12-11-2024 History of Present illness Narrative Reason for Appointment: Patient ID: Sherly Erickson is a 24 y.o. female who presents [...] nursing note reviewed. Exam conducted with a aircraft engine dismantler present. Vitals: Estimated body mass index is [...] Cole Alonso DO documented in this encounter [facility] 12-04-2024 History of Present illness Narrative Reason for Appointment: Patient ID: Sherly Erickson is a 24 y.o. female who presents [...] of: NITISH Rojas documented in this encounter [facility] 12-03-2024 Note [facility] Note Reason for cardiology [...] being tired during the daytime. 10/24/2024 Sherly Erickson is a 24 y.o. female who is [...] Rfl: OneTouch Delica Plus Lancet 30 gauge misc, , Disp: , Rfl: OneTouch Ultra Test strip, , Disp: , Rfl: OneTouch Ultra2 Meter misc, , Disp: , Rfl: 5-EXVK-XQVQL ACID-OM3 ORAL, Take by mouth., Disp: , [...] she was starte (more content not included)... [facility] 11-22-2024 History of Present illness Narrative [...] no Have you been seen here at [facility] in a previous ? No Recent ER visits or hospitalizations? No Bring blood sugar log or meter with you today? (Please bring them with you for every visit at [facility]) no Flu vaccine (Jul-November)? No Any concerns that you would like me to mention to the provider today? No REASON FOR TELEMEDICINE VIDEO CONSULTATION: Large for gestational age fetus with polyhydramnios HISTORY OF PRESENT ILLNESS: Sherly Erickson is a pleasant 24 y.o. G 2 [...] and the other consultants, we search on epic and all the available care everywhere epic I did review all the imaging studies of the patient available on EMR, ordered by the primary care physician and the other engineering consultant HABITS: Patient activity no restrictions, diet [...] high, please refer the patient back to [facility] for formal diabetes management 5. Continue [...] patient is in complete care of her health data analyst. Patient does not have appointment scheduled with us. Thank you for allowing me to participate in Sherly Erickson . If there any questions please do not hesitate to contact us. Sincerely, AHMET SOLER MD Video Visit via Real-time Synchronous Audiovisual Provider Location: [facility] AT [address] [address] Patient Location: Other Patient Location Doughnut Icer: None Video Visit Consent Statement: I discussed [...] that there are some limitations compared to mpsm-qv-aoig evaluations. We elected to proceed. documented in this encounter [facility] 11-20-2024 History of Present illness Narrative Reason for Appointment: Patient ID: Sherly Erickson is a 24 y.o. female who presents [...] nursing note reviewed. Exam conducted with a aircraft engine dismantler present. Vitals: Estimated body mass index is [...] three times a day. Pt return to [facility] on the for follow up anatomy scan. Pt second BP in office was 118/86. No orders of the defined types were placed in this encounter. Follow Up: Patient is to return to office in 2 week for routine OB appointment. Documented by Bailey Xavier LPN on behalf of: Cole Alonso DO documented in this encounter [facility] 11-06-2024 History of Present illness Narrative Reason for Appointment: Patient ID: Sherly Erickson is a 24 y.o. female who presents [...] of: NITISH Rojas documented in this encounter [facility] 10-24-2024 Note [facility] Note Reason for cardiology consult: Tachycardia Chief Complaint: Palpitation and increased heart rate HPI: Sherly Erickson is a 24 y.o. female who is [...] mouth in the morning., Disp: , Rfl: 3-ODRO-XJONM ACID-OM3 ORAL, Take by mouth., Disp: , [...] in 4 to 6 weeks Angel Luis Madsen MD,[facility] 10-22-2024 History of Present illness Narrative Reason for Appointment: Patient ID: Sherly Erickson is a 24 y.o. female who presents [...] nursing note reviewed. Exam conducted with a aircraft engine dismantler present. Vitals: Estimated body mass index is [...] NST/BPP to have started. Orders sent to [facility] Scheduling and [facility] Hospital to reach out to patient to schedule. Patient to return to clinic in 2 weeks for routine OIB appointment. Documented by Rose Latham LPN on behalf of: Cole Alonso DO documented in this encounter [facility] 10-08-2024 History of Present illness Narrative Reason for Appointment: Patient ID: Sherly Erickson is a 24 y.o. female who presents for Routine Visit Patient presents today for Return OB appointment. MEDICATIONS Current Outpatient Medications Medication Instructions clotrimazole (Mycelex) 10 MG jacob 1 lozenge(s), Oral, 5x/Day, x 10 day(s), # 50 lozenge(s), 0 Refill(s), 10/16/24 8:59:00 AM HOSPICE MASSAGE THERAPIST, Pharmacy: [facility] [id number], 1 lozenge(s) Oral 5x/Day,x10 day(s), 170.18, cm, [...] of: NITISH Rojas documented in this encounter [facility] 10-06-2024 Note Patient Education Ma terials Follows: [...] Follow these instructions at home: ? Take vbur-szr-fqwdupt and prescription medicines only as told by [...] provider. Document Revised: 11/30/2021 Document Reviewed: 11/30/2021 Elsevier Patient Education ? 2023 General Compression. Infectious Disease Oral Thrush, Adult Oral thrush, [...] difficulty fighting infection (more content not included)... [facility] 09-24-2024 Note Patient Education Ma terials [...] these instructions at home: Medicines ? Take mumn-wge-fczhojy and prescription medicines only as told by [...] and water are not available, use hand cut off sawyer log. ? Do not touch your eyes, nose, [...] may represent a (more content not included)... [facility] 09-10-2024 History of Present illness Narrative Reason for Appointment: Patient ID: Sherly Erickson is a 24 y.o. female who presents [...] nursing note reviewed. Exam conducted with a aircraft engine dismantler present. Vitals: Estimated body mass index is [...] 22w3d with a Estimated Date of Delivery: 5/9/25. Patient to return to clinic in 4 weeks for routine OB care. Documented by Rose Latham LPN on behalf of: Cole Alonso DO documented in this encounter [facility] 08-08-2024 History of Present illness Narrative Reason for Appointment: Patient ID: Sherly Erickson is a 24 y.o. female who presents [...] Cole Alonso DO documented in this encounter [facility] 07-10-2024 History of Present illness Narrative Reason for Appointment: Patient ID: Sherly Erickson is a 24 y.o. female who presents [...] nursing note reviewed. Exam conducted with a aircraft engine dismantler present. Vitals: Estimated body mass index is [...] or undercooked meat, and stay away from formerly [facility]. Patient has been consulted regarding any [...] Cole Alonso DO documented in this encounter [facility] 07-05-2024 Note Patient Education Ma terials Follows:and [...] and use condoms. General instructions ? Take xlnh-sjl-wcnifpe and prescription medicines only as told by [...] provider. Document Revised: 02/19/2021 Document Reviewed: 02/19/2021 PressConnect Patient Education ? 2023 General Compression. [facility] 06-07-2024 History of Present illness Narrative Reason for Appointment: Patient ID: Sherly Erickson is a 24 y.o. female who presents [...] both done at the same time at [facility] at 10 weeks . Pt desires zofran due to nausea in this . Follow Up: Patient is to have labs drawn at directed and return to office for initial OB appointment with provider. Patient may call office as needed with any concerns or questions. Nurse Visit Completed by: Bernadette Reeder MA documented in this encounter [facility] 05-28-2024 Note Education Materials Orthopedics Muscle Strain [...] not too tight. General instructions ? Take sdkq-wid-yflplyc and prescription medicines only as told by [...] Reviewed: 11/09/2021 Elsevier Patient Education ? 2023 General Compression. Sciatica Sciatica is pain, weakness, tingling, or [...] (pelvis). ? . (more content not included)... [facility] 05-28-2024 Note Patient Education Ma terials Follows: [facility] 05-08-2024 History of Present illness Narrative Reason for Appointment: Patient ID: Sherly Erickson is a 24 y.o. female who presents [...] Cole Alonso DO documented in this encounter [facility] 04-24-2024 History of Present illness Narrative Images from the original note were not included. documented in this encounter [facility] 10-06-2023 History of Present illness Narrative Reason for Appointment: Patient ID: Sherly Erickson is a 23 y.o. female who presents [...] nursing note reviewed. Exam conducted with a aircraft engine dismantler present. Vitals: Estimated body mass index is [...] PCOS/insulin resistance and medication was sent to [facility] in [place]. Documented by Rose Latham LPN on behalf [...] glucose tolerance test documented in this encounter [facility]* Diagnosis Missed menses documented in this encounter [facility]* Diagnosis , unspecified gestational age Encounter for supervision of normal first in first trimester Second trimester state, incidental 22 weeks gestation of documented in this encounter [facility]* Diagnosis Third trimester state, incidental 26 weeks gestation of Diabetes mellitus screening Screening for diabetes mellitus documented in this encounter [facility]* Diagnosis 28 weeks gestation of Third trimester state, incidental Excessive growth affecting management of in third trimester, single or unspecified fetus documented in this encounter [facility]* Diagnosis Third trimester state, incidental 30 weeks gestation of Excessive growth affecting management of in third trimester, single or unspecified fetus Diabetes mellitus screening Screening for diabetes mellitus documented in this encounter [facility]* Diagnosis Polyhydramnios affecting in third trimester- Primary PCOS (polycystic ovarian syndrome) Polycystic ovaries [facility] Diagnosis Third trimester state, incidental 32 weeks gestation of documented in this encounter [facility]* Diagnosis Third trimester state, incidental 34 weeks gestation of Gestational diabetes mellitus (GDM) affecting Gestational diabetes mellitus (GDM), antepartum, gestational diabetes method of control unspecified documented in this encounter [facility]* Diagnosis Third trimester state, incidental 35 weeks gestation of [facility]* Diagnosis Third trimester state, incidental 36 weeks gestation of documented in this encounter [facility] HealthcareInstructionsNot on filedocumented in this encounterProSt. [facility] SystemInstructionsNot on filedocumented in this encounterProSt. [facility] Summary Purpose Family History No [...] third molar tooth Kenya Richter, DDS [address] [place] [address] Referral ID Status Reason Start Date Expiration Date V isits Requested Visits Authorized [id number] Pending Review 04/24/2024 04/24/2025 1 1 Scheduling [...] your procedure, you will be contacted with elm-xr-wqtyvud costs or next steps. All self-pay payments [...] the procedure: You also MUST have a buggy driver/escort >18yrs old present to take you [...] section and content) DATE CREATED AUTHOR 01/08/2022 [facility] DATE CREATED AUTHOR AUTHOR'S ORGANIZ ATION 09/23/2024 [facility] DATE CREATED AUTHOR AUTHOR'S ORGANIZ ATION 11/24/2024 [facility] DATE CREATED AUTHOR AUTHOR'S ORGANIZ ATION 11/24/2024 [facility] DATE CREATED AUTHOR AUTHOR'S ORGANIZ ATION 12/11/2024 [facility] DATE CREATED AUTHOR AUTHOR'S ORGANIZ ATION 12/12/2024 [facility] DATE CREATED AUTHOR AUTHOR'S ORGANIZ ATION 12/20/2024 [facility] EPIC Reason for Visit (unrecogniz ed section and content) Reason Comments Discuss cycles Reason Comments Amenorrhea Reason Comments Routine Visit Reason Comments Well Women Visit Routine Visit STI Screening Reason Comments Abdominal Pain Reason Comments polyhydramnios Reason Comments Routine Visit Care Teams (unrecognized sec tion and content) Dot Etcher Apprentice Relationship Specialty Start Date End Date Radha Mendoza MD [address] [place] [id number] PCP - General Pediatrics 10/06/23 Dot Etcher Apprentice Relationship Specialty Start Date End Date Radha Mendoza MD [address] [place] [address] [id number] PCP - General Pediatrics 10/06/23 Dot Etcher Apprentice Relationship Specialty Start Date End Date Radha Mendoza MD [address] [place] [address] [phone] PCP - General Pediatrics 10/06/23 Dot Etcher Apprentice Relationship Specialty Start Date End Date Radha Mendoza MD [address] [place] [address] [phone] PCP - General Pediatrics 10/06/23 Dot Etcher Apprentice Relationship Specialty Start Date End Date Radha Mendoza MD [address] [place] [address] [id number] PCP - General Pediatrics 10/06/23 Dot Etcher Apprentice Relationship Specialty Start Date End Date Radha Mendoza MD [address] [place] [address] [id number] PCP - General Pediatrics 10/06/23 Dot Etcher Apprentice Relationship Specialty Start Date End Date Radha Mendoza MD [address] [place] [address] [id number] PCP - General Pediatrics 10/06/23 Dot Etcher Apprentice Relationship Specialty Start Date End Date Radha Mendoza MD [address] [place] [address] [phone] PCP - General Pediatrics 10/06/23 Dot Etcher Apprentice Relationship Specialty Start Date End Date Radha Mendoza MD [address] [place] [address] [phone] PCP - General Pediatrics 10/06/23 Dot Etcher Apprentice Relationship Specialty Start Date End Date Radha Mendoza MD [address] [place] [address] [phone] PCP - General Pediatrics 10/06/23 Dot Etcher Apprentice Relationship Specialty Start Date End Date Radha Mendoza MD [address] [place] [address] [phone] PCP - General Pediatrics 10/06/23 Dot Etcher Apprentice Relationship Specialty Start Date End Date Radha Mendoza MD [address] [place] [address] [id number] PCP - General Pediatrics 10/06/23 Dot Etcher Apprentice Relationship Specialty Start Date End Date Radha Mendoza MD [address] [place] [address] [phone] PCP - General Pediatrics 10/06/23 Dot Etcher Apprentice Relationship Specialty Start Date End Date Radha Mendoza MD [address] [place] [address] [phone] PCP - General Pediatrics 10/06/23 Dot Etcher Apprentice Relationship Specialty Start Date End Date Radha Mendoza MD [address] [place] [address] [phone] PCP - General Pediatrics 10/06/23 Dot Etcher Apprentice Relationship Specialty Start Date End Date Radha Mendoza MD [address] [place] [address] [phone] PCP - General Pediatrics 10/06/23 FOR RECORDS [...] PRIMARY CLINICAL RECORDS. [facility] [employer] [facility]. provides no warranty or guarantee of the accuracy or completeness of information in this document.
--- NOTE | 2024-12-20 10:06 | US_ITS ---
The [address] [address] Patient Name: SHERLY ERICKSON MRN: [id number] date: 2000 Sex: F Assigned Patient Location: Current Patient Location: [place] Accession/Order Number: [id number] Exam Date: 12/20/2024 10:46 Report Date: 12/20/2024 10:48 At the request of: JACKIE FOREMAN DO Procedure: US OB BPP w non-stress BIOPHYSICAL PROFILE: CLINICAL INFORMATION: Excessive growth COMPARISON: 12/17/2024 There is a single live intrauterine gestation in cephalic presentation. The reported gestational age is 36 weeks 6 days. There is cardiac activity with heart rate of 147 bpm. FINDINGS: TONE: 1 or more episodes of activity extension and flexion of extremity or opening and closing of the hand [Y] 2/2 GROSS BODY MOVEMENTS: 3 or more discrete body or limb movements [Y] 2/2 BREATHING MOVEMENTS: 1 or more episodes of breathing lasting at least 30 seconds [Y] 2/2 JET: A single deepest vertical pocket of amniotic fluid greater than 2 cm [Y] 2/2 JET: 18.9 cm. This is in upper normal range. Total score: 8/8 US/ OB BPP w non-stress IMPRESSION: NORMAL BIOPHYSICAL PROFILE. Impression dictated by: Bailey Beasley M.D.12/20/2024 10:48 AM Dictation Location: [place] [address] Electronically authenticated by: [id number] Y Date: 12/20/2024 10:48
[2024-12-20 10:26] VITALS: BP 133/63; PULSE 137
--- NOTE | 2024-12-20 11:09 | ECG_ITS ---
[facility] Test Date: 2024-12-20 Pat Name: SHERLY ERICKSON Department: Room: [facility] Gender: Female Transplant Rn: : 2000 Requested By: JACKIE FOREMAN Order Number: [id number] Reading MD: NANCY SAXENA M.D. Measurements Intervals [place] Rate: 78 P: 23 MS: 148 QRS: 42 QRSD: 78 T: 19 QT: 353 QTc: 403 Interpretive Statements SINUS RHYTHM WITH MARKED SINUS ARRHYTHMIA Normal ECG No previous ECG available for comparison Electronically Signed On 12-20-2024 17:13:49 EDT by NANCY SAXENA M.D.
[2024-12-20 11:22] VITALS: BP 130/77; PULSE 96
== END 2024-12-20 11:31 | disposition home or self-care (01) ==
LOC: US 10:00 → FBC 10:25
PROVIDERS: PCP Family Medicine; Visit Provider Obstetrics & Gynecology
DX: O36.63X0 Maternal care for excessive fetal growth, third trimester, not applicable or unspecified (principal); O26.893 Other specified pregnancy related conditions, third trimester; O99.891 Other specified diseases and conditions complicating pregnancy; Z3A.36 36 weeks gestation of pregnancy
CPT/HCPCS: 76818; 93005; 94010; 94726; 94729

== ENCOUNTER 2024-12-24 11:01 | Outpatient (OUT) | payer MEDICAID, SELFPAY ==
--- NOTE | 2024-12-24 11:10 | US_ITS ---
The [place] [id number] Patient Name: SHERLY ERICKSON MRN: [id number] date: 2000 Sex: F Assigned Patient Location: US Current Patient Location: LAB Accession/Order Number: [id number] Exam Date: 12/24/2024 14:07 Report Date: 12/24/2024 14:09 At the request of: JACKIE FOREMAN DO Procedure: US OB BPP w non-stress Ultrasound biophysical profile HISTORY: Excessive growth. There is adequate breathing movement, gross body movement, tone and amniotic fluid volume for total of 8 out of 8. Amniotic fluid index is 16.3 cm within normal limits. The heart rate is 132 bpm. US/US OB BPP w non-stress IMPRESSION: Adequate ultrasound biophysical profile. Impression dictated by: Robert Hui M.D.12/24/2024 2:09 PM Dictation Location: [place] [address] Electronically authenticated by: [id number] Y Date: 12/24/2024 14:09
[2024-12-24 11:55] VITALS: BP 108/74; PULSE 82
== END 2024-12-24 13:28 | disposition home or self-care (01) ==
LOC: US 11:02 → FBC 11:16
PROVIDERS: PCP Family Medicine; Visit Provider Obstetrics & Gynecology
DX: O36.63X0 Maternal care for excessive fetal growth, third trimester, not applicable or unspecified (principal)
CPT/HCPCS: 76818

== ENCOUNTER 2024-12-26 08:56 | Inpatient (IN) | payer MEDICAID, SELFPAY ==
[2024-12-26] VITALS (24 sets, daily range): BP systolic 92–165; BP diastolic 54–89; PULSE 64–102; TEMP 36.5–36.8; O2SAT 95–97
[2024-12-26] MEDS: 0.9 % SODIUM CHLORIDE 1,000 ML 1000 ML IV ×2 (09:30→10:35)
[2024-12-26 09:51] LABS: Glucometer 74 mg/dL (74-106)
[2024-12-26 10:21] LABS: Basophils Percent Auto 0.2 % (0.2-2.0); Eosinophils Absolute Auto 0.1 10^3/uL (0.0-0.7); Eosinophils Percent Auto 1.7 % (0.9-7.0); Hematocrit 30.6 % (36.0-48.0); Immature Granulocytes Abs Auto 0.06 10^3/uL (0.00-0.03); Immature Granulocytes Pct Auto 0.7 % (0.0-0.5); Lymphocytes Absolute Auto 1.7 10^3/uL (1.2-3.8); Lymphocytes Percent Auto 20.8 % (20.5-60.0); Mean Corpuscular HGB Conc 32.7 g/dL (29.9-35.2); Mean Corpuscular Volume 82.5 fL (81.0-99.0); Mean Platelet Volume 10.1 fL (9.5-13.5); Monocytes Absolute Auto 0.6 10^3/uL (0.3-0.8); Monocytes Percent Auto 7.1 % (1.7-12.0); Neutrophils Absolute Auto 5.7 10^3/uL (1.4-6.5); Neutrophils Percent Auto 69.5 % (43.0-75.0); Platelet Count 266 10^3/uL (150-450); Red Blood Count 3.71 10^6/uL (4.20-5.40); Red Cell Distribution Width 15.7 % (11.0-15.0); White Blood Count 8.3 10^3/uL (4.0-11.0)
[2024-12-26 11:00] LABS: Bilirubin Urine NEGATIVE (NEGATIVE); Blood Urine NEGATIVE (NEGATIVE); Clarity Urine CLEAR (CLEAR); Color Urine LT. YELLOW (YELLOW); Glucose Urine UA NEGATIVE (NEGATIVE); Ketones Urine 15 mg/dL (NEGATIVE); Leukocyte Esterase Urine TRACE (NEGATIVE); Nitrite Urine NEGATIVE (NEGATIVE); Protein Urine NEGATIVE (NEG/TRACE); Specific Gravity Urine 1.015 (1.005-1.025)
[2024-12-26 11:12] LABS: RBC Urine 0-2 #/HPF (0-2)
[2024-12-26 11:16] LABS: Bacteria Urine SMALL #/HPF (NONE SEEN); Mucus Urine SMALL (NONE SEEN); Squamous Epithelial Cell Urine FEW #/LPF (NONE/RARE); WBC Urine 0-2 #/HPF (NONE SEEN)
[2024-12-26 11:17] LABS: Cast Seen? NONE SEEN #/LPF (NONE SEEN); Crystals Seen? None Seen #/HPF (None Seen); Urine Culture Indicated YES-LC
[2024-12-26 11:20] LABS: Amphetamine Screen Urine NEGATIVE (NEGATIVE); Barbiturates Screen Urine NEGATIVE (NEGATIVE); Benzodiazepines Screen Urine NEGATIVE (NEGATIVE); Buprenorphine Screen Urine NEGATIVE (NEGATIVE); Cannabinoid Screen Urine NEGATIVE (NEGATIVE); Cocaine Screen Urine NEGATIVE (NEGATIVE); Methadone Screen Urine NEGATIVE (NEGATIVE); Methamphetamines Screen Urine NEGATIVE (NEGATIVE); Opiate Screen Urine NEGATIVE (NEGATIVE); Oxycodone Screen Urine NEGATIVE (NEGATIVE); Phencyclidine Screen Urine NEGATIVE (NEGATIVE); Tricyclic Antidepressant Urine NEGATIVE (NEGATIVE)
[2024-12-26] MEDS: CITRIC ACID/SODIUM CITRATE 30 ML SOLUTION ORACIT SHOHL'S SOLN PO (11:41)
[2024-12-26] MEDS: FAMOTIDINE/PF 20 MG/2 ML VIAL IV (11:41)
[2024-12-26] MEDS: METOCLOPRAMIDE HCL 10 MG/2 ML VIAL IVP (11:42)
[2024-12-26] MEDS: CEFAZOLIN SODIUM/DEXTROSE,ISO 2 GM/50 ML PIGGYBACK IV ×2 (11:58→19:11)
[2024-12-26] MEDS: LACTATED RINGER'S SOLUTION 1,000 ML 50 ML IV ×2 (12:32→12:55)
--- NOTE | 2024-12-26 12:52 | P.ON_ITS ---
Brief Operative Note Date of procedure: 12/26/24 Pre-op diagnosis general: iup at 37 4/7wks, gestational diabetes, ho tra derian with prior vaginal delivery Post-op diagnosis: same as pre-op Procedure: NAME OF PROCEDURE: [ section ] PROCEDURE: Patient was taken back to the Operating Room where she was given a spinal anesthesia with Duramorph without difficulty. She was prepped and draped in the normal sterile fashion. A Pfannenstiel skin incision was then made 2 cm above the symphysis pubis and carried down to underlying rectus fascia using a Bovie. The fascia was incised in the midline and extended laterally using Ricketts scissors. Two Alma clamps were placed on the superior aspect of the fascia and dissected off the underlying rectus muscles. The same was performed on the inferior aspect as well. The muscles were then in the midline. Peritoneum was identified and entered bluntly. The peritoneum was then extended superiorly and inferiorly with good visualization of the bladder. The bladder blade was inserted. A low transverse incision was made on the patient's uterus and extended laterally digitally. The infant was then delivered atraumatically after the bladder blade was removed in the cephalic position. The cord was clamped and cut. Cord blood was obtained. The infant was handed off to awaiting team. The patient's placenta was spontaneously delivered. The uterus was then exteriorized. The uterus was cleared of all clots and debris. The bladder blade was reinserted. The patient's uterine incision was closed using #0 Vicryl in a running lock fashion. Excellent hemostasis was assured. The uterus was then returned to the patient's abdomen. The patient's abdomen was copiously irrigated using warm saline. Peritoneal gutters were cleared of all clots and debris. Again excellent hemostasis was assured. The patient's peritoneum was closed using 3-0 Vicryl in a running fashion. The patient's fascia was closed using #0 Vicryl in a running fashion. The patient's skin was closed using 4-0 Vicryl subcuticularly. The patient tolerated the procedure well. Sponge, lap, and needle counts were correct x2. The patient was taken to the Recovery Room in stable condition. Anesthesia: spinal Surgeon: Cole Alonso Feather Shaper: Larissa Cummings Estimated blood loss (mL): 575 Pathology: none sent Condition: stable Disposition: floor Urinary Catheter Management Urinary Catheter Management Urethral: Cath placed during this visit: no
--- NOTE | 2024-12-26 12:53 | P.OBPRC_ITS ---
Procedure Pre-op/Post-op diagnoses: Pre-Op/Post-Op Diagnoses Operation Date: 12/26/24 11:05 <No data on this case meets the specified criteria> Procedure: Procedures Operation Date: 12/26/24 11:05 Actual Procedure Side Surgeon p Not Applicable Cole Alonso DO Lockstitch Zipper Setter: Larissa Cummings Estimated blood loss (mL): 575 Disposition: floor Anesthesia type: Spinal
[2024-12-26] MEDS: OXYTOCIN/0.9 % SODIUM CHLORIDE 20 UNITS/1,000 ML PLAST..BAG 125 UNIT IV (13:35)
[2024-12-26] MEDS: KETOROLAC TROMETHAMINE 30 MG/ML VIAL IVP (22:15)
[2024-12-26] MEDS: ENOXAPARIN SODIUM 40 MG/0.4 ML SYRINGE SUBQ (23:47)
[2024-12-27] MEDS: KETOROLAC TROMETHAMINE 30 MG/ML VIAL IVP ×3 (06:30→23:11)
[2024-12-27 06:33] LABS: Glucometer 86 mg/dL (74-106)
[2024-12-27 06:39] VITALS: BP 112/61; TEMP 36.8
[2024-12-27 06:44] LABS: Basophils Percent Auto 0.1 % (0.2-2.0); Eosinophils Percent Auto 0.1 % (0.9-7.0); Hematocrit 30.3 % (36.0-48.0); Hemoglobin 9.5 g/dL (12.0-16.0); Immature Granulocytes Abs Auto 0.07 10^3/uL (0.00-0.03); Immature Granulocytes Pct Auto 0.6 % (0.0-0.5); Lymphocytes Absolute Auto 1.6 10^3/uL (1.2-3.8); Lymphocytes Percent Auto 13.8 % (20.5-60.0); Mean Corpuscular HGB Conc 31.4 g/dL (29.9-35.2); Mean Corpuscular Hemoglobin 26.3 pg (26.7-34.0); Mean Corpuscular Volume 83.9 fL (81.0-99.0); Mean Platelet Volume 10.9 fL (9.5-13.5); Monocytes Absolute Auto 0.6 10^3/uL (0.3-0.8); Monocytes Percent Auto 5.5 % (1.7-12.0); Neutrophils Percent Auto 79.9 % (43.0-75.0); Platelet Count 289 10^3/uL (150-450); Red Blood Count 3.61 10^6/uL (4.20-5.40); Red Cell Distribution Width 15.7 % (11.0-15.0); White Blood Count 11.2 10^3/uL (4.0-11.0)
--- NOTE | 2024-12-27 08:16 | PM.OBPN ---
OB - PN: Subj Subjective Patient comments: no complaints and pain well controlled [place] status: doing well Exam Constitutional Vital Signs, click to edit/add: Last Vital Signs Temp 98.2 F 12/27/24 06:39 Pulse 84 12/26/24 20:30 Resp 22 H 12/26/24 14:40 BP 112/61 12/27/24 06:39 Pulse Ox 96 12/26/24 14:40 O2 Del Method Room Air 12/27/24 06:30 Documenting provider has reviewed patient's vital signs: yes Common normals: no apparent distress Respiratory Common normals: normal respiratory effort and clear to auscultation bilaterally Cardio Common normals: regular rate and regular rhythm GI Common normals: Normal to inspection, nondistended, normoactive bowel sounds present Extremity Common normals: no clubbing, cyanosis or edema and no calf tenderness Results Labs Labs: Short CBC 12/26/24 12/27/24 Range/Units 10:14 06:33 WBC 8.3 11.2 H (4.0-11.0) 10^3/uL Hgb 10.0 L 9.5 L (12.0-16.0) g/dL Hct 30.6 L 30.3 L (36.0-48.0) % Plt Count 266 289 (150-450) 10^3/uL Urine 12/26/24 Range/Units 09:10 Urine Color Lt. yellow (YELLOW) Urine Clarity Clear (CLEAR) Urine pH 7.0 (5.0-9.0) Ur Specific [place] 1.015 (1.005-1.025) Urine Protein Negative (NEG/TRACE) mg/dL Urine Glucose (UA) Negative (NEGATIVE) mg/dL Urinary Catheter Management Urinary Catheter Management Urethral: Cath placed during this visit: yes, but has since been removed by the nurse Insertion date: 12/26/24 Insertion time: 12:10 Removal date: 12/27/24 Removal time: 06:30 OB - PN: A/P Plan - day: 1 Plan: routine postop care Time Spent with Patient Time: Total time spent is greater than 50% in coordination of care (as documented) at patient's floor/unit and/or counseling patient: Total time spent with greater than 50% in coordination of care (as documented) at patient's floor/unit and/or counseling patient: less than 15 minutes
[2024-12-27 08:48] VITALS: BP 92/64
[2024-12-27 08:50] VITALS: PULSE 89; TEMP 36.6
[2024-12-27 11:10] VITALS: PULSE 58; TEMP 36.3
[2024-12-27] MEDS: OXYCODONE HCL/ACETAMINOPHEN 5MG/325MG 2 TAB PO ×2 (11:15→18:37)
[2024-12-27] MEDS: DOCUSATE SODIUM 100 MG CAPSULE PO ×2 (11:15→21:04)
[2024-12-27 11:18] VITALS: BP 123/68
[2024-12-27 23:11] VITALS: BP 102/74; TEMP 36.8
[2024-12-27] MEDS: ENOXAPARIN SODIUM 40 MG/0.4 ML SYRINGE SUBQ (23:13)
--- NOTE | 2024-12-28 06:33 | PM.OBPN ---
OB - PN: Subj Subjective Patient comments: no complaints [place] status: doing well [place] feeding status: exclusively Exam Constitutional Vital Signs, click to edit/add: Last Vital Signs Temp 98.2 F 12/27/24 23:11 Pulse 58 L 12/27/24 11:10 Resp 18 12/27/24 11:10 BP 102/74 12/27/24 23:11 Pulse Ox 96 12/26/24 14:40 O2 Del Method Room Air 12/27/24 21:00 Documenting provider has reviewed patient's vital signs: yes Common normals: no apparent distress General appearance: cooperative Orientation/consciousness: Yes awake, Yes oriented to person, Yes oriented to place and Yes oriented to time HENMT Common normals: normocephalic Eye Common normals: EOMs intact bilaterally General eye: normal appearance of both eyes Neck & C-Spine Common normals: full ROM Lymph Lymphatic: no lymphadenopathy noted Chest Common normals: inspection of chest normal Respiratory Common normals: normal respiratory effort Auscultation: clear to auscultation bilaterally Cardio Common normals: regular rate and regular rhythm Rate: regular rate Rhythm: regular rhythm GI Common normals: Normal to inspection, nondistended, normoactive bowel sounds present Inspection: normal to inspection Palpation: soft Common normals: no CVA tenderness Back & Pelvis Common normals: no CVA tenderness Extremity Common normals: normal to inspection Neuro Common normals: oriented x3 Sensorium/orientation: awake, alert, oriented to person, oriented to place and oriented to time Psych Common normals: mental status grossly normal, thought process normal, cooperative, affect normal, speech normal, activity/motor behavior normal, denies hallucinations, denies homicidal ideation and denies suicidal ideation Attitude: calm Thought content: normal thought content Results Labs Labs: Short CBC 12/27/24 Range/Units 06:33 WBC 11.2 H (4.0-11.0) 10^3/uL Hgb 9.5 L (12.0-16.0) g/dL Hct 30.3 L (36.0-48.0) % Plt Count 289 (150-450) 10^3/uL Urinary Catheter Management Urinary Catheter Management Urethral: Cath placed during this visit: yes, but has since been removed by the nurse Insertion date: 12/26/24 Insertion time: 12:10 Removal date: 12/27/24 Removal time: 06:30 OB - PN: A/P Plan - day: 2 Plan: discharge home Time Spent with Patient Time: Total time spent is greater than 50% in coordination of care (as documented) at patient's floor/unit and/or counseling patient: Total time spent with greater than 50% in coordination of care (as documented) at patient's floor/unit and/or counseling patient: less than 15 minutes
[2024-12-28] MEDS: IBUPROFEN 400 MG TABLET 800 MG PO (06:47)
[2024-12-28 08:35] VITALS: BP 128/75; PULSE 83; TEMP 36.5; O2SAT 99
[2024-12-28] MEDS: DOCUSATE SODIUM 100 MG CAPSULE PO (08:42)
== END 2024-12-28 12:50 | disposition home or self-care (01) | DRG 540 ==
PROVIDERS: Admitting Provider Obstetrics & Gynecology; PCP Family Medicine; Visit Provider Obstetrics & Gynecology
PROC: 10D00Z1 Extraction of Products of Conception, Low, Open Approach (ICD-10-PCS; CPT 59514; principal; 2024-12-26 11:05)
DX: O24.424 Gestational diabetes mellitus in childbirth, insulin controlled (principal); Z3A.37 37 weeks gestation of pregnancy; Z37.0 Single live birth; O99.214 Obesity complicating childbirth; E66.01 Morbid (severe) obesity due to excess calories; Z87.59 Personal history of other complications of pregnancy, childbirth and the puerperium; Z90.49 Acquired absence of other specified parts of digestive tract; O36.63X0 Maternal care for excessive fetal growth, third trimester, not applicable or unspecified; Z87.891 Personal history of nicotine dependence
CPT/HCPCS: 36415; 51702; 64488; 71045; 76818; 80307; 81001; 82948; 85025; 86850; 86900; 86901; 87086; 94667; 94668; J0131; J0665; J0690; J1100; J1650; J1885; J2274; J2371; J2590; J2765; J3490

== ENCOUNTER 2025-08-15 19:21 | Outpatient (REF) | payer MEDICAID, SELFPAY ==
--- OUTSIDE RECORDS SUMMARY | 2025-08-15 10:00 | XMS_ITS | Encounter Summary ---
Author Organization [facility] Address [address] [place] [address] Care Team Providers Care Clinical Research Assistant Name Role Phone Anthony Gomez MD Primary Care Provider [phone] Reason for Visit * ReasonCommentsWell Women Visit Encounter Details DateTypeDepartmentCare Team (Latest Contact Info)Llmbhjeehly04/11/2025 10:00 AM ESTOffice Visit [facility] [address] [place] [address] Emily Ballesteros PA [address] [place], [facility]11 Well woman exam with routine gynecological exam; Missed menses; Amenorrhea Social History Tobacco UseTypesPacks/DayYears UsedDateSmoking Tobacco: FormerCigarettes Smokeless Tobacco: NeverAlcohol UseStandard Drinks/WeekCommentsNever0 (1 standard drink = 0.6 oz pure alcohol)caffeine: 1-2 cups per dayComments UnknownSex and Gender InformationValueDate RecordedSex Assigned at BirthFemale 08/08/2025 9:10 AM ESTLegal BlyYkxljs36/15/2023 10:12 PM EDTGender Identity Ddqizn2608/08/2025 9:10 AM ESTSexual OrientationNot on filedocumented as of this encounter Last Filed Vital Signs Vital SignReadingTime TakenCommentsBlood Gtibqmoe765/8208/15/2025 10:05 AM EST Pulse--Temperature--Respiratory Rate--Oxygen Saturation--Inhaled Oxygen Concentration--Lpkidu222 kg (266 lb 1.9 oz)08/15/2025 10:05 AM ESTHeight--Body Mass Index41.6809 11:32 AM EDTdocumented in this encounter Progress Notes * NITISH Rojas - 08/15/2025 10:00 AM EST Reason for Appointment: Patient ID: Arcelia Astudillo is a 25 y.o. female who presents for [facility] Women Visit Patient presents today for Annual Exam. MEDICATIONS No current outpatient medications ALLERGIES No Known Allergies PROBLEMS Active Ambulatory [...] nursing note reviewed. Exam conducted with a rn oncology clinical present. Vitals: Estimated body mass index is 41.68 kg/m?? as calculated from the following: Height as of 05/08/24: 5' 7 . Weight as of this encounter: 266 lb 1.9 oz. BP: 120/82 No LMP recorded (within months). Assessment/Plan ICD-10-CM 1. Well woman exam with routine gynecological exam Z01.419 Pap Smear 2. Missed menses N92.6 POCT , urine manually resulted Assessment/Plan Annual Exam: Patient presents today for an annual exam. Patient states she is doing well and states irregular spotting since April no true bleeding. Pt has history of PCOS and periods were abnormal prior to . Pap was obtained without difficulty. Patient in house test is negative. Patient does have history of PCOS and this is normal for her prior to . We will order amenorrhea labs and also check thyroid as pt feels her neck is swollen. She will be referred to endocrine if necessary. pt offered to start back on metformin but declined at this time. Orders Placed This Encounter Procedures POCT , urine manually resulted Follow Up: Patient is to return in one year for annual unless needed otherwise. Documented by Cassia Perez LPN on behalf of: NITISH Rojas documented in this encounter Plan of Treatment DateTypeDepartmentCare Team (Latest Contact Info)Xlwkzhprgcr30/08/2026 8:00 AM ESTAncillary Procedure [facility] [address] [place] [phone] 08/21/2026 10:00 AM ESTProcedure Visit [facility] [address] [place] [phone] Emily Ballesteros PA [address] [address] NameTypePriorityAssociated DiagnosesOrder SchedulePap SmearPathology and CytologyRoutine Well woman exam with routine gynecological exam Ordered: 08/15/2025TSHLabRoutine Amenorrhea Ordered: 08/15/2025BC and differentialLabRoutine Amenorrhea Ordered: 08/15/2025ProlactinLabRoutine Amenorrhea Ordered: 08/15/2025hCG, quantitative, pregnancyLabRoutine Amenorrhea Ordered: 08/15/2025Hemoglobin U1wIfdCgczjcy Amenorrhea Ordered: 08/15/2025US Pelvis w/ TVImagingRoutine Amenorrhea Expected: 08/15/2025, Expires: 08/15/2026omprehensive metabolic panelLabRoutine Amenorrhea Ordered: 08/15/2025documented as of this encounter Procedures Procedure NamePriorityDate/TimeAssociated DiagnosisCommentsPOCT , URINE Soobrqm4108/15/2025 10:14 AM EST Missed menses documented in this encounter Results * POCT , urine manually resulted (08/15/2025 10:14 AM EST)Component ValueRef RangeTest MethodAnalysis TimePerformed AtPathologist SignaturePreg Test, UrNegativeNegativeSpecimen (Source)Anatomical Location / Laterality Collection Method / VolumeCollection TimeReceived AggyEhheu70/11/2025 10:14 AM EST Narrative Authorizing ProviderResult TypeResult StatusAmy [place] PAPOINT OF CARE TEST ENTER/EDIT ORDERABLESFinal Result documented in this encounter Visit Diagnoses Diagnosis Well woman exam with routine gynecological exam Routine gynecological examination Missed menses Amenorrhea Absence of menstruation documented in this encounter Care Teams Team MemberRelationshipSpecialtyStart DateEnd Date Anthony Gomez MD [address] [place] [id number] PCP - GeneralPediatrics2/09/28documented as of this encounter
--- OUTSIDE RECORDS SUMMARY | 2025-08-15 19:27 | XMS_ITS | Clinical Summary ---
Author Organization [facility] Address [address] [place] [address] Care Team Providers Care Aircraft Pilot Name Role Phone Unavailable Primary Care Provider Unavailabl e Source Comments The following information is NOT included in Care Everywhere downloads:Psychiatric notes, ECG results, Cardiac Rehab notes, Pulmonary Function notes, data from SmartForms (includes but not limited toPregnancy data,audiograms, eye exams, pre-surgical evaluation notes, well-child exam data).[facility] Medications MedicationSigDispense QuantityRefillsLast FilledStart DateEnd DateStatus escitalopram (LEXAPRO) 10 MG tablet 10 mg.4Active metformin (GLUCOPHAGE-XR) 500 MG XR tablet Take 500 mg by mouth.4Active Active Problems ProblemNoted DateDiagnosed PzpyAryrylvpzp33/08/2025Elevated LFTs02/10/2025 Insulin iygguttzmw01/29/2024COS (polycystic ovarian syndrome)10/17/2023 Immunizations ImmunizationAdministration DatesNext DueDTP (CVX=01)11/01/1999,1998, 1998,1998DTaP, unspecified formulation (SEK=853)06/07/2002HPV, quadrivalent (Gardasil 4) (CVX=62)11/04/2015,02/15/2011Hep B (peds/adol, 3-dose) (CVX=08)1998,1998,1998Hib, unspecified formulation (CVX=17) 06/18/1999,1998,1998,1998Influenza, injectable, quadrivalent, preservative free (SYF=025)06/12/2020MMR, Apicctd-Ptoyx-Ypdlayf (CVX=03) 06/07/2002,06/18/1999Meningococcal conjugate (MCV4,Men-ACWY), Menactra (MCV4P) (IIV=181)11/04/2015Pneumococcal conjugate 7 valent (PCV7) (IJQ=253)06/08/2001 Polio, inactivated (IPV) (CVX=10)06/07/2002Polio, unspecified formulation (CVX=89)12/02/1999,1998,1998Tdap (HEK=664)11/19/2023,06/11/2020, 02/15/2011Varicella (Chickenpox) (CVX=21)07/25/2007,06/18/1999 Social History Tobacco UseTypesPacks/DayYears UsedDateSmoking Tobacco: Never Assessed CommentsUnknownSex and Gender InformationValueDate RecordedSex Assigned at Not on fileLegal DjePkxlfr47/23/2024 2:29 PM ESTGender IdentityNot on fileSexual OrientationNot on file Plan of Treatment Health MaintenanceDue DateLast DoneCommentsHepatitis C Ixfotdue37/01/2016 Hepatitis A (HAV) Vaccine (optional start 19+ years)2017Pap Smear 2019COVID-19 Vaccine ( season)2025Influenza Vaccine (#1) 51Tetanus (Td or Tdap) Fmazoms55, 06/11/2020, 02/15/2011Shingles (RZV) Vaccine (1 of 2)2048Hepatitis B (HBV) MemvxjfQpfqlxgoq51/03/1999, 1998, 1998Pneumococcal Vaccine(s)Aged Out06/08/2001No longer eligible based on patient's age to complete this topicHPV LyljndgRenhauloq69/01/2016, 02/15/2011HIV NqmpLitkbldoj94/22/2020Tdap Booster Mgxvrliab93/16/2024, 06/11/2020, 02/15/2011MammographyDiscontinued Insurance * Guarantor: Praful Astudillo TypeRelation to PatientDate of BirthPhone Billing UaicyfgIuhttpojjrstmNwfn2000 [address] [place] [address]
--- OUTSIDE RECORDS SUMMARY | 2025-08-15 19:27 | XMS_ITS | Clinical Summary ---
Author Organization [employer] Address [facility] [id number] [address] [place] [address] Care Team Providers Care Stemhole Borer And Topper Name Role Phone Unavailable Primary Care Provider Unavailabl e Allergies No known active allergies Medications MedicationSigDispense QuantityRefillsLast FilledStart DateEnd DateStatus metFORMIN (GLUCOPHAGE) 500 mg tablet Take 1 tablet (500 mg total) by mouth daily with dinner.Active ondansetron (ZOFRAN) 4 mg tablet Take 1 tablet (4 mg total) by mouth every 6 (six) hours as needed for nausea or vomiting.Active clotrimazole (MYCELEX) 10 mg jacob Dissolve 1 tablet (10 mg total) in the mouth 5 (five) times a day.Active magnesium oxide (MAGOX) 400 mg tablet Take 1 tablet (400 mg total) by mouth in the morning.Active aspirin 81 mg chewable tablet Chew 1 tablet (81 mg total) and swallow in the morning.Active lancets 30 gauge misc Indications:Polyhydramnios affecting in third trimesterUse it to check fingerstick blood glucose 4 times a day fasting and 1 hour after each meal. Dispensed per insurance preference 100 each 5Active blood-glucose meter misc Indications:Polyhydramnios affecting in third trimesterCheck blood glucose using meter. Dispense per insurance preference 1 each 5Active blood sugar diagnostic (glucose blood) strip Indications:Polyhydramnios affecting in third trimesterCheck blood glucose using test strips fasting and 1 hour after each meal. Four to 5 times a day perinsurance preferences 100 strip 5Active Active Problems ProblemNoted DateDiagnosed DatePolyhydramnios affecting in third /20/2025PCOS (polycystic ovarian syndrome)10/15/2024 Family History Medical HistoryRelationNameCommentsDepressionFatherHypertensionFatherDiabetes Maternal GrandmotherBrenda RollinsDiabetesMotherDawn HavensEndometriosisMother Magnolia HavensLeukemiaMotherDawn HavensRelationNameStatusCommentsFatherMaternal GrandmotherBrenda RollinsMotherDawn Renetta Social History Tobacco UseTypesPacks/DayYears UsedDateSmoking Tobacco: FormerCigarettes Smokeless Tobacco: Never Tobacco Cessation:Counseling Given: Not Answered Alcohol UseStandard Drinks/WeekCommentsNot Currently0 (1 standard drink = 0.6 oz pure alcohol)ChildcareAnswerDate XeoqfclvXpkjaqrpyDztnoxh42/30/2020Employment AnswerDate QxxcvughCpoahqqyluTqbgpwc58/30/2020Hunger ScreeningAnswerDate RecordedWithin the past 12 months we worried whether our food would run out before we got money to buy more.Never True11/22/2024Within the past 12 months the food we bought just didn't last and we didn't have money to get more.Never True11/22/2024Purpose - LifeAnswerDate RecordedPurpose and direction in life Qvsnjqq61/11/2021CommentsNoSex and Gender InformationValueDate Recorded Sex Assigned at BirthNot on fileLegal OmqWekbqt54/30/2020 1:53 PM EDTGender IdentityNot on fileSexual OrientationNot on file Last Filed Vital Signs Vital SignReadingTime TakenCommentsBlood Ajmetubr921/80011/22/2024 12:01 PM EDT Oyrts162811/22/2024 12:01 PM EDTTemperature--Respiratory Rate--Oxygen Saturation-- Inhaled Oxygen Concentration--Cvvnzo959.6 kg (288 lb)11/22/2024 12:01 PM EDT Twzgbv105.2 cm (5' 7 )11/22/2024 12:01 PM EDTBody Mass Index45.11011/22/2024 12:01 PM EDT Plan of Treatment Health MaintenanceDue DateLast DoneCommentsDepression Wphaupvdx76/01/2010dult BMI Follow Up Plan2016Influenza Ezibxvz930/04/2020Adult BMI Nvtopfumn30/Tobacco Ltpszbkkj91/Pap Smear /TaP,Tdap and Td Vaccines (9 - Td or Tdap)11/18/2033 11/19/2023, 06/11/2020, 02/15/2011, Additional history exists Medical Devices Not on file Insurance
--- OUTSIDE RECORDS SUMMARY | 2025-08-15 19:27 | XMS_ITS | Encounter Summary ---
Author Organization [facility] Address [address] [place] [address] Care Team Providers Care Natural History Collections Curator Name Role Phone Anthony Gomez MD Primary Care Provider [phone] Encounter Details DateTypeDepartmentCare Team (Latest Contact Info)Tifclsaccvb50/11/2025amboo flowsheet [facility] [address] [place] [address] Emily Ballesteros PA [address] [place], [facility] Social History Tobacco UseTypesPacks/DayYears UsedDateSmoking Tobacco: FormerCigarettes Smokeless Tobacco: NeverAlcohol UseStandard Drinks/WeekCommentsNever0 (1 standard drink = 0.6 oz pure alcohol)caffeine: 1-2 cups per dayComments UnknownSex and Gender InformationValueDate RecordedSex Assigned at BirthFemale 08/08/2025 9:10 AM ESTLegal SteMzxcoo40/15/2023 10:12 PM EDTGender Identity Dyffpg4108/08/2025 9:10 AM ESTSexual OrientationNot on filedocumented as of this encounter Plan of Treatment DateTypeDepartmentCare Team (Latest Contact Info)Bllhcrboexp68/08/2026 8:00 AM ESTAncillary Procedure [facility] BURLESONN [address] [place] [address] 08/21/2026 10:00 AM ESTProcedure Visit [facility] ALDANA [address] [place] [address] Emily Ballesteros PA [address] [place] [address] documented as of this encounter Visit Diagnoses Not on filedocumented in this encounter Care Teams Team MemberRelationshipSpecialtyStart DateEnd Date Anthony oGmez MD [address] [place] [id number] PCP - GeneralPediatrics2/09/28documented as of this encounter
--- OUTSIDE RECORDS SUMMARY | 2025-08-15 19:27 | XMS_ITS | Clinical Summary ---
Author Organization [facility] Address [address] [place] [address] Care Team Providers Care Assistant Shift Supervisor Name Role Phone Anthony Gomez MD Primary Care Provider [phone] Allergies No known active allergies Medications MedicationSigDispense QuantityRefillsLast FilledStart DateEnd DateStatus aspirin 81 mg EC tablet Take 81 mg by mouth in the morning.Active 9-TNQJ-UGCVC ACID-OM3 ORAL Take by mouth.Active magnesium oxide (Mag-Ox) 400 mg (241.3 mg magnesium) tablet Indications:HypomagnesemiaTake 1 tablet (400 mg) by mouth two times daily. 180 tablet /6Active OneTouch Ultra Test strip 5Active OneTouch Ultra2 Meter [facility] 5Active OneTouch Delica Plus Lancet 30 gauge [facility] 5Active magnesium oxide (Mag-Ox) 400 mg (241.3 mg magnesium) tablet Take 400 mg by mouth in the morning.Active Active Problems ProblemNoted DateDiagnosed DatePolyhydramnios affecting in third /20/6133Jszkrpqurlsk65/02/5863Hhmbfetutze89/02/2025Dyspnea on qpojbqes93/02/2025lass 3 severe obesity due to excess calories without serious comorbidity with body mass index (BMI) of 40.0 to 44.9 in adult8 weeks gestation of tdpdvrgma43/02/0013Zsnbuhkvbd15/19/2025PCOS (polycystic ovarian syndrome)11/28/2023Encounter to discuss test haglzxn2911/03/2023Insulin gtrfkmxboc17/29/2024Irregular periods/menstrual wgqnup21/29/2024Comments Yes Family History Medical HistoryRelationNameCommentsDiabetesMaternal GrandfatherDiabetesMaternal GrandmotherDiabetesMotherRelationNameStatusCommentsMaternal GrandfatherMaternal GrandmotherMother Social History Tobacco UseTypesPacks/DayYears UsedDateSmoking Tobacco: Every DaySmokeless Tobacco: Current Tobacco Cessation:Ready to Q uit: Not Asked; Counseling Given: Not Answered Alcohol UseStandard Drinks/WeekCommentsNot Currently0 (1 standard drink = 0.6 oz pure alcohol)CommentsYesSex and Gender InformationValueDate RecordedSex Assigned at PlgorTctfmt47/07/2025 1:17 PM EDTLegal SwbAqdbvf34/11/2025 2:01 PM ESTGender QbxdtxfdXxxbdu63/07/2025 1:17 PM EDTSexual OrientationHeterosexual or Avpknvhs65/07/2025 1:17 PM EDT Last Filed Vital Signs Vital SignReadingTime TakenCommentsBlood Ucvsdnuf098/8612/03/2024 10:42 AM EDT Nlwki49302/31/2025 10:42 AM EDTTemperature--Respiratory Rate--Oxygen Saturation 94%12/03/2024 10:42 AM EDTInhaled Oxygen Concentration--Dbjxgv529 kg (286 lb) 12/03/2024 10:42 AM NZWVgbvpw169.2 cm (5' 7 )12/03/2024 10:42 AM EDTBody Mass Index44.7912/03/2024 10:42 AM EDT Plan of Treatment Health MaintenanceDue DateLast DoneCommentsDepression Ahcepxknk45/01/2010COVID- 19 Vaccine ( season)2025Influenza Vaccine (#1)2025 06/12/2020Pap Smear/dult Opyygul13/, 06/11/2020, 02/15/2011Zoster Vaccines (1 of 2)/, 06/18/1999 HIB KfngchezNoiwzzems29/14/1999, 1998, 1998, Additional history existsPneumococcal Vaccine: Pediatrics (0 to 5 Years) and At-Risk Patients (6 to 64 Years)Aged Out06/08/2001No longer eligible based on patient's age to complete this topicIPV ZqkbjlcnAukqsjzwi75/03/2002, 12/02/1999, 1998, Additional history existsVaricella WfcaggtvOhzkutigw75/20/2007, 06/18/1999HPV Vaccines Fxkpctjiw58/01/2016, 02/15/2011Meningococcal HpoymyoDzxvmxysl65/01/2016 Meningococcal B VaccineAged OutNo longer eligible based on patient's age to complete this topicRotavirus VaccinesAged OutNo longer eligible based on patient's age to complete this topic Insurance Care Teams Team MemberRelationshipSpecialtyStart DateEnd Date Anthony Gomez MD [address] [place] [address] PCP - GeneralFamily Medicine10/24/24
--- OUTSIDE RECORDS SUMMARY | 2025-08-15 19:27 | XMS_ITS | CCD ---
Author Organization [facility] Care Team Providers Care Quiller Tender Name Role Phone Radha Mendoza MD Primary Care Provider [phone] Unavailable Primary Care Provider UnavailKENYA Gonzales Attending Unavailable PROVIDER, UNKNOWN Admitting Unavailable Unavailable Primary Care Provider Unavailbety barros CELESTE, COLE R Referring Unavailable CELESTE, COLE R Referring Unavailable CELESTE, COLE R Referring Unavailable AHMET SOLER Attending Unavailable ANGEL LUIS EVANS Attending Unavailable ANGEL LUIS EVANS Attending Unavailable CELESTE, COLE R Admitting Unavailable Radha Mendoza Primary Care Unavailable CELESTE, COLE R Attending Unavailable CELESTE, COLE R Attending Unavailable CELESTE, COLE R Admitting Unavailable Radha Mendoza Primary Care Unavailable Radha Mendoza Primary Care Unavailable Evonne Cheung L Attending Unavailable Evonne Cheung Admitting Unavailable Reza, Larissa Y Attending Unavailable Reza, Larissa Y Admitting Unavailable Radha Mendoza Primary Care Unavailable Reza, Larissa Y Attending Unavailable Reza, Larissa Y Admitting Unavailable Radha Mendoza Primary Care Unavailable Radha Mendoza Primary Care Unavailable Tellez PAC, Spenser Gallegos Attending Unavailable Tellez PAC, Spenser Gallegos Admitting Unavailable JasonRadha denney Primary Care Unavailable Radha Mendoza Attending Unavailable Radha Mendoza Primary Care Unavailable Radha Mendoza Attending Unavailable Tellez PAC, Spenser N Attending Unavailable Tellez PAC, Spenser N Admitting Unavailable Radha Mendoza Primary Care Unavailable CELESTE, COLE R Attending Unavailable CELESTE, COLE R Admitting Unavailable Radha Mendoza Primary Care Unavailable EMILY BALLESTEROS Attending Unavailable CELESTE, COLE Attending Unavailable FAVIAN, EMILY Attending Unavailable CELESTE, COLE Attending Unavailable FAVIAN, EMILY Attending Unavailable CELESTE, COLE Attending Unavailable CELESTE, COLE Attending Unavailable CELESTE, COLE Attending Unavailable KALI WOODWARD Attending Unavailable FAVIAN, EMILY Attending Unavailable CELESTE, COLE Attending Unavailable CELESTE, COLE Attending Unavailable CELESTE, COLE Attending Unavailable CELESTE, COLE Attending Unavailable Radha Mendoza MD Primary Care Provider [phone] Allergies Allergy ClassificationReported Allergen(s)Allergy TypeDate of OnsetReaction(s) Facility (1 source)No Known Medication Allergies; Translations: [No Known Medication Allergies]Propensity to adverse reactions to drug (disorder)[facility] Repository Medications Current Medications MedicationDrug Class(es)DatesSig (Normalized)Sig (Original)amoxicillin 500 mg oral tablet (2 sources)Penicillin-class AntibacterialStart: 09-30-2023 End: 15-86-1542wlab 1 tablet by mouth in the morning, then take 1 tablet by mouth in the evening, then take 1 tablet by mouth at bedtimeamoxicillin (Amoxil) 500 MG tablet Take 500 mg by mouth in the morning and 500 mg in the evening and 500 mg before bedtime. 0 09/30/2023 10/10/2023 Activeaspirin 81 mg delayed release oral tablet (20 sources)Platelet Aggregation Inhibitor, Nonsteroidal Anti-inflammatory Drug take 1 tablet by mouth in the morningaspirin 81 MG EC tablet Take 81 mg by mouth in the morning. Activeaspirin 81 mg chewable tablet Chew 1 tablet (81 mg total) and swallow in the morning. Activeblood-glucose meter [facility] (1 source)Start: 07-74-6861ollvi-glucose meter [facility] Indications: Polyhydramnios affecting in third trimester Check blood glucose using meter. Dispense per insurance preference 1 each 11/22/2024 Activefluconazole 150 mg oral tablet (2 sources)Azole AntifungalStart: 02-06-2025 End: 97-27-6579efnv 1 tablet by mouth once, then take 1 tablet by mouth once fluconazole (Diflucan) 150 MG tablet Indications: Yeast infection Take 1 tablet (150 mg) by mouth 1(one) time for 1 dose This is a 1 time dose, take single tablet by mouth. 1 tablet 1 02/06/2025 02/06/2025 Activenystatin 100 unt/mg topical powder (2 sources)Polyene AntifungalStart: 02-06-2025 End: 61-95-6115clwhvqyr (Mycostatin) 459155 UNIT/GM powder Indications: Yeast infection Apply topically in the morning and in the evening and before bedtime. 15 g 02/06/2025 02/06/2026 Activeondansetron 4 mg disintegrating oral tablet (20 sources)Serotonin-3 Receptor AntagonistStart: 06-07-2024 End: 38-98-6375ypry 1 tablet by mouth every six hours for nauseaondansetron ODT (Zofran-ODT) 4 MG disintegrating tablet Indications: Nausea and vomiting in Take 1 tablet (4 mg) by mouth every 6 (six) hours if needed for nausea or vomiting 30 tablet 2 07/10/2024 08/09/2024 Active End: 23-83-6981jwor 1 tablet by mouth every six hours as neededondansetron (Zofran) 4 MG tablet Take 4 mg by mouth every 6 (six) hours if needed 02/06/2025 DiscontinuedPrenatal MV & Min w/FA-DHA ( GUMMIES PO) (20 sources) MV & Min w/FA-DHA ( GUMMIES PO) Take by mouth Active Completed/Discontinued Medications MedicationDrug Class(es)DatesSig (Normalized)Sig (Original)clotrimazole 10 mg oral lozenge (6 sources)Azole AntifungalStart: 10-06-2024 End: 26-93-7321dmlmcpujhuok (Mycelex) 10 MG jacob 1 lozenge(s), Oral, 5x/Day, x 10 day(s), # 50 lozenge(s), 0 Refill(s), 10/16/24 8:59:00 AM LEAD BI DEVELOPER, Pharmacy: [facility] [id number], 1 lozenge(s) Oral 5x/Day,x10 day(s), 170.18, cm, 10/06/24 9:22:00 EST, Height, 118.39, kg, 10/06/24 9:24:00 EST, Weight Dosing 10/06/2024 10/22/2024 Discontinuedtake 1 tablet by mouth five times daily clotrimazole (MYCELEX) 10 mg jacob Dissolve 1 tablet (10 mg total) in the mouth 5 (five) times a day. Activeinsulin isophane, human 100 unt/ml injectable suspension (20 sources)Start: 12-04-2024 End: 96-37-4197ppenth 5 [IU] by subcutaneous injection in the morninginsulin NPH, Isophane, (HumuLIN N,NovoLIN N) 100 UNIT/ML injection Indications: Gestational Diabetes Inject 5 Units under the skin in the morning and 5 Units in the evening. Inject before meals. 3 mL12/12/2024 02/06/2025 Discontinuedinsulin isophane, human 70 unt/ml / insulin, regular, human 30 unt/ml injectable suspension (20 sources)InsulinStart: 12-04-2024 End: 49-78-2054uqyxnm 5 [IU] by subcutaneous injection in the morninginsulin NPH-insulin regular (NovoLIN) (70-30) 100 UNIT/ML injection Indications: Gestational Diabetes Inject 5 Units under the skin in the morning and 5 Units in the evening. Inject before meals. 3 mL 12/12/2024 02/06/2025 Discontinued isopropyl alcohol 0.7 ml/ml medicated pad (18 sources)Start: 12-12-2024 End: 90-30-8757Awhittz Swabs (Alcohol Prep Pad) 70 % pads Indications: Gestational diabetes mellitus (GDM), antepartum, gestational diabetes method of control unspecified , Elevated glucose tolerance test Apply 1 Pad topically Daily Use four times daily to check FSBS. 150 each 3 12/12/2024 02/06/2025 Discontinuedketoconazole 20 mg/ml topical cream (4 sources)Azole AntifungalStart: 10-25-2024 End: 91-17-9450cvhgnxdncikc (NIZOral) 2 % cream 10/25/2024 11/20/2024 Discontinuedmagnesium oxide 400 mg oral tablet (20 sources)Start: 11-07-2024 End: 55-33-3419aytn 1 tablet by mouth in the morningmagnesium oxide (Mag-Ox) 400 MG tablet Take 400 mg by mouth in the morning and 400 mg in the evening. 11/07/2024 02/06/2025 Halhnhfgtkec35 hr metFORMIN hydrochloride 500 mg extended release oral tablet (20 sources)BiguanideStart: 10-06-2023 End: 63-76-7002uxui 1 tablet by mouth every twenty-four hours at mealtime metFORMIN XR (Glucophage-XR) 500 MG 24 hr tablet Indications: Irregular periods/menstrual cycles , Insulin resistance Take 1 tablet (500 mg) by mouth in the evening. Take with meals Do not crush, chew, or split. 30 tablet 11 10/06/2023 11/20/2024 Discontinued (Other)take 1 tablet by mouth once daily at dinnermetFORMIN (GLUCOPHAGE) 500 mg tablet Take 1 tablet (500 mg total) by mouth daily with dinner. Activenitrofurantoin, macrocrystals 25 mg / nitrofurantoin, monohydrate 75 mg oral capsule (3 sources)Nitrofuran AntibacterialStart: 07-02-2024 End: 75-13-5285nojm 1 capsule by mouth in the morningnitrofurantoin, macrocrystal-monohydrate, (Macrobid) 100 MG capsule Indications: UTI symptoms Take 1 capsule (100 mg) by mouth in the morning and 1 capsule (100 mg) before bedtime. Do all this for 7 days. 14 capsule 07/02/2024 07/10/2024 Discontinued (Therapy completed) Problems Active Problems Problem ClassificationProblemDateDocumented DateEpisodic/ChronicCardiac dysrhythmias (2 sources)Tachycardia, unspecified; Translations: [Tachycardia, unspecified] Onset: 17-81-2386YetvoictPitreqsq mellitus without complication (2 sources)Abnormal glucose tolerance test; Translations: [Other abnormal glucose]94-32-8444RhnmryydJsgqupnm or abnormal glucose tolerance complicating ; childbirth; or the puerperium (6 sources)Gestational diabetes mellitus; Translations: [Gestational diabetes mellitus complicating ]27-39-2858TpybgzuoYzygvppzm of lipid metabolism (2 sources)Hyperlipidemia; Translations: [Hyperlipidemia]Onset: 12-03-2024 ChronicEssential hypertension (2 sources)Hypertensive disorder; Translations: [Hypertension]Onset: 12-03-2024 ChronicImmunizations and screening for infectious disease (2 sources)Exposure to sexually transmissible disorder; Translations: [Contact with and (suspected) exposure to infections with a predominantly sexual mode of transmission]91-86-2927NnhgclrmXhigapouv disorders (20 sources)Irregular periods; Translations: [Irregular menstruation, unspecified]Onset: 020772-99-4876HghzrxwBeagkwd (2 sources)Mycosis; Translations: [Candidiasis, unspecified]54-52-2262Cprppexe Other complications of (3 sources)Vomiting of , unspecified; Translations: [Unspecified vomiting of , unspecified as to episode of care or not applicable] 20-66-8121LhnzihndZific complications of (4 sources)Excessive growth affecting management of mother; Translations: [Maternal care for excessive growth, third trimester, not applicable or unspecified]44-38-9705OcrbkrvuPzacg endocrine disorders (20 sources)Polycystic ovary syndrome; Translations: [Polycystic ovarian syndrome]Onset: 172162-62-1684NtikowlMwtun female genital disorders (2 sources)Vaginal discharge; Translations: [Other specified noninflammatory disorders of vagina]45-89-9031OmdqqzjeUcyjv nutritional; endocrine; and metabolic disorders (20 sources)Insulin resistance; Translations: [Insulin resistance]Onset: 091058-84-4305RcwojyjTctwa and delivery including normal (20 sources); Translations: [Encounter for supervision of normal , unspecified, unspecified trimester]28-19-1510ByrvphxwDxikt screening for suspected conditions (not mental disorders or infectious disease) (2 sources)Encounter for other screening follow-up; Translations: [Encounter for other specified screening]Onset: 01-67-0215Kyzretbg Polyhydramnios and other problems of amniotic cavity (4 sources)Polyhydramnios; Translations: [Polyhydramnios, third trimester, not applicable or unspecified]Onset: 837636-19-8991TywdfnwzSxorkhqw codes; unclassified (1 source)Gestation period, 8 weeks; Translations: [8 weeks gestation of ]56-87-5394WmdeguojGkekajex codes; unclassified (2 sources)Gestation period, 13 weeks; Translations: [13 weeks gestation of ]36-23-6021OrsnkoreDvmvcsca codes; unclassified (2 sources)Gestation period, 17 weeks; Translations: [17 weeks gestation of ]60-14-9244KwklzlqpBsnzacnt codes; unclassified (2 sources)Gestation period, 22 weeks; Translations: [22 weeks gestation of ]36-33-1080WxjapcbdCnzlrhxj codes; unclassified (2 sources)Gestation period, 26 weeks; Translations: [26 weeks gestation of ]81-44-7114YaegzuprZugebkmb codes; unclassified (2 sources)Gestation period, 28 weeks; Translations: [28 weeks gestation of ]06-78-9633YkchijmvWhybzmup codes; unclassified (2 sources)Gestation period, 30 weeks; Translations: [30 weeks gestation of ]49-00-5768KgguxfcgWkazwaqi codes; unclassified (1 source)Gestation period, 32 weeks; Translations: [32 weeks gestation of ]16-06-5722HzqremurNkwcxbag codes; unclassified (2 sources)Gestation period, 34 weeks; Translations: [34 weeks gestation of ]93-94-3105NyqzcalkMmaontnh codes; unclassified (2 sources)Gestation period, 35 weeks; Translations: [35 weeks gestation of ]93-43-2419CjmatmohFtapwpdr codes; unclassified (2 sources)Gestation period, 36 weeks; Translations: [36 weeks gestation of ]90-80-5086HvytyfttXnphwkis codes; unclassified (2 sources)Gestation period, 37 weeks; Translations: [37 weeks gestation of ]85-72-0840Ncvywjto Past or Other Problems Problem ClassificationProblemDateDocumented DateEpisodic/Chronic Administrative/social admission (20 sources)Patient encounter status; Translations: [Person consulting for explanation of examination or test findings]Onset: 375136-09-1453Tyymemwa Disorders of teeth and jaw (4 sources)Tooth eruption disorder; Translations: [Disturbances in tooth eruption]Onset: 399077-54-9925Txyaxosx Results Test NameValueInterpretationReference RangeFacilityOutside Recordson 01-09-2025 Outside [id number]#1.00OTGTIFFNoSamaritan HospitalOutside Recordson 30-62-3515Tggfpjf Records [id number]#1.00OTGTLutheran HospitalALL CBC WITH AUTO DIFFon 75-51-4339TOEXCWRBN ABSOLUTE JZOU8XHAHSaint Joseph Hospital West Basophils/100 WBC (Bld)0.1 %Low0.2 - 2.0 %[facility] SpringsEosinophils/100 WBC (Bld)0.1 %Low0.9 - 7.0 %[facility] SpringsErythrocyte distribution width (RBC) [Ratio]15.7 %High11.0 - 15.0 %[facility] SpringsHematocrit (Bld) [Volume fraction] 30.3 %Low36.0 - 48.0 %[facility] SpringsHemoglobin (Bld) [Mass/Vol]9.5 g/dLLow12.0 - 16.0 g/dLSaint Mary's Hospital of Blue SpringsIMMATURE GRANULOCYTES ABS AUTO0.07HighSaint Mary's Hospital [facility] Springs Immature granulocytes/100 WBC (Bld)0.6 %High0.0 - 0.5 %[facility] Interpretation and review of laboratory resultsAbnoPenn State Health [facility] LYMPHOCYTES ABSOLUTE AUTO1.6NOSaint Joseph Hospital WestLymphocytes/100 WBC (Bld)13.8 %Low 20.5 - 60.0 %[facility] SpringsH (RBC) [Entitic mass]26.3 pgLow26.7 - 34.0 pgSaint Mary's Hospital of Blue SpringsHC (RBC) [Mass/Vol]31.4 g/dL29.9 - 35.2 g/dLSaint Mary's Hospital of Blue SpringsV (RBC) [Entitic vol]83.9 fL81.0 - 99.0 fLSaint Mary's Hospital of Blue SpringsMONOCYTES ABSOLUTE AUTO0.6NOSaint Joseph Hospital WestMonocytes/100 WBC (Bld)5.5 %1.7 - 12.0 %[facility] SpringsNEUTROPHILS ABSOLUTE ZTGV5QbjsLFYO HealthcareNeutrophils/100 WBC (Bld)79.9 %High43.0 - 75.0 %[facility] SpringsPlatelet mean volume (Bld) [Entitic vol]10.9 fL9.5 - 13.5 fLSaint Mary's Hospital of Blue SpringsTBH EO #0NOMS Delaware County HospitalTB MRU055WNUVPerry County Memorial Hospital RBC3.61LowNOPerry County Memorial Hospital WBC11.2HighSaint Mary's Hospital of Blue SpringsCLINISYNCNOMS HealthcareOutside Records on 52-95-6104Qdfkpjz Records [id number]#1.00OTGTEast [facility] CBC WITH AUTO DIFFon 13-02-9570EKRRKUVGV ABSOLUTE ZDGN3BOQD Healthcare Basophils/100 WBC (Bld)0.2 %0.2 - 2.0 %NOMS HealthcareEosinophils/100 WBC (Bld) 1.7 %0.9 - 7.0 %NOMS HealthcareErythrocyte distribution width (RBC) [Ratio]15.7 %High11.0 - 15.0 %NOMS HealthcareHematocrit (Bld) [Volume fraction]30.6 %Low36.0 - 48.0 %NOM HealthcareHemoglobin (Bld) [Mass/Vol]10 g/dLLow12.0 - 16.0 g/dLSaint Mary's Hospital of Blue SpringsIMMATURE GRANULOCYTES ABS AUTO0.06HighNOSaint Joseph Hospital WestImmature granulocytes/100 WBC (Bld)0.7 %High0.0 - 0.5 %[facility] HealthcareInterpretation and review of laboratory resultsAbnormalNOAR HealthcareLYMPHOCYTES ABSOLUTE AUTO1.7 NOM HealthcareLymphocytes/100 WBC (Bld)20.8 %20.5 - 60.0 %[facility] SpringsH (RBC) [Entitic mass]27 pg26.7 - 34.0 pgNOSaint Luke's Health SystemHC (RBC) [Mass/Vol]32.7 g/dL29.9 - 35.2 g/dLSaint Mary's Hospital of Blue SpringsV (RBC) [Entitic vol]82.5 fL81.0 - 99.0 fL NOMS HealthcareMONOCYTES ABSOLUTE AUTO0.6NOMS HealthcareMonocytes/100 WBC (Bld) 7.1 %1.7 - 12.0 %NOMS HealthcareNEUTROPHILS ABSOLUTE AUTO5.7NOSaint Joseph Hospital West Neutrophils/100 WBC (Bld)69.5 %43.0 - 75.0 %NOM HealthcarePlatelet mean volume (Bld) [Entitic vol]10.1 fL9.5 - 13.5 fLBarton County Memorial Hospital EO #0.1NOMS [facility] SIB956JQUJ HealthcareTBH RBC3.71LowNOMS HealthcareTBH WBC8.3NOMS Healthcare CLINISYNCNOMS HealthcareOutside Recordson 88-34-2684Jvbkckp Records [id number]#1.00[facility] Urinalysis macro (dipstick) panel (U)on 31-40-6144Rzxoisjfe, UANegativeNegative - 4(70) +++ mg/dLNOMS HealthcareBlood, UANegativeNegative - 50 Osvaldo/mcLNOMS HealthcareClarity, UAClearNOMS HealthcareColor, UAYellowNOMS HealthcareGlucose, UANegativeNegative - 2000(110) ++++ mg/dLNOMS HealthcareInterpretation and review of laboratory resultsNormalNOMS HealthcareKetones, UANegativeNegative - 160(16) ++++ mg/dLNOMS HealthcareLeukocytes, UAPositiveNegative - 500+++ Edison/mcL NOMS HealthcareNitrite, UANegativeNegative - PositiveNOMS HealthcarepH, UA75 - 9 NOMS HealthcareProtein, UANegativeNegative - 2000(20) ++++ mg/dLNOMS Healthcare Spec Grav, UA1.021 - 1.03NOMS HealthcareUrobilinogen, UA0.20.2 - 12 mg/dLNOMS HealthcareNOMS HealthcareUS OB BPP W NON-STRESSon 68-22-7327Ycl[place] [address] Ultrasound Report Signed Patient: SHERLY ERICKSON MR#: [id number] : 2000 Acct:[id number] Age/Sex: 24 / F ADM Date: 12/24/24 Loc: US Attending Dr: Cole Alonso D.O. Ordering Physician: Cole Alonso D.O. Date of Service: 12/24/24 Procedure(s): US OB BPP w non-stress Accession Number(s): [id number] cc: RADHA MENDOZA ; Cole Alonso D.O. The [address] [address] Patient Name: SHERLY ERICKSON MRN: [id number] date: 2000 Sex: F Assigned Patient Location: US Current Patient Location: LAB Accession/Order Number: [id number] Exam Date: 12/24/2024 14:07 Report Date: 12/24/2024 14:09 At the request of: COLE ALONSO DO Procedure: US OB BPP w non-stress Ultrasound biophysical profile HISTORY: Excessive growth. There is adequate breathing movement, gross body movement, tone and amniotic fluid volume for total of 8 out of 8. Amniotic fluid index is 16.3 cm within normal limits. The heart rate is 132 bpm. US/US OB BPP w non-stress IMPRESSION: Adequate ultrasound biophysical profile. Impression dictated by: Robert Hui M.D.12/24/2024 2:09 PM Dictation Location: [place] [address] Electronically authenticated by: [id number] Y Date: 12/24/2024 14:09 Dictated By: Robert Hui D.O. Signed By: 12/24/24 1411 DD/ 1409 TD/TT: Regulatory Lead:KIAHRadiology, Radiologist, - 12/24/2024 [place] [address] Ultrasound Report Signed Patient: SHERLY ERICKSON MR#: [id number] : 2000 Acct:[id number] Age/Sex: 24 / F ADM Date: 12/24/24 Loc: US Attending Dr: Cole Alonso D.O. Ordering Physician: Cole Alonso D.O. Date of Service: 12/24/24 Procedure(s): US OB BPP w non-stress Accession Number(s): [id number] cc: RADHA MENDOZA ; Cole Alonso D.O. The [place] [id number] Patient Name: SHERLY ERICKSON MRN: [id number] date: 2000 Sex: F Assigned Patient Location: US Current Patient Location: LAB Accession/Order Number: [id number] Exam Date: 12/24/2024 14:07 Report Date: 12/24/2024 14:09 At the request of: COLE ALONSO DO Procedure: US OB BPP w non-stress Ultrasound biophysical profile HISTORY: Excessive growth. There is adequate breathing movement, gross body movement, tone and amniotic fluid volume for total of 8 out of 8. Amniotic fluid index is 16.3 cm within normal limits. The heart rate is 132 bpm. US/US OB BPP w non-stress IMPRESSION: Adequate ultrasound biophysical profile. Impression dictated by: Robert Hui M.D.12/24/2024 2:09 PM Dictation Location: [facility]WORK[facility] Electronically authenticated by: [id number] Y Date: 12/24/2024 14:09 Dictated By: Robert Hui D.O. Signed By: 12/24/24 1411 DD/ 1409 TD/TT: Regulatory Lead: LUIS HealthcareRadiology Study observation (narrative)[facility] SpringsUS OB BPP W NON-STRESSOrdered By: Radiologist Radiology on 03-14-7668SVJD Healthcare Work Phone: aLL MISCELLANEOUS TESTon 23-33-6334ZJVRUJEHAVQYG TEST COMMENT.[facility] HealthcareComment on above:Test Ordered: [id number] Strep Gp B Culture+Rflx Strep Gp B Culture+Rflx Negative CB Reference Range: Negative Centers for Disease Control and Prevention (CDC) and [place] [employer] of Obstetricians and Gynecologists (ACOG) guidelines for prevention of group B streptococcal (GBS) disease specify co-collection of a vaginal and rectal swab specimen to maximize sensitivity of GBS detection. Per the CDC and ACOG, swabbing both the lower vagina and rectum substantially increases the yield of detection compared with sampling the vagina alone. Penicillin G, ampicillin, or cefazolin are indicated for intrapartum prophylaxis of GBS colonization. Reflex susceptibility testing should be performed prior to use of clindamycin only on GBS isolates from penicillin- allergic women who are considered a high risk for anaphylaxis. Treatment with vancomycin without additional testing is warranted if resistance to clindamycin is noted. Performed at: [address] [id number] Tip Banding Machine Operator: Emigdio Smith PhD, Phone: [phone] GROUP B STREP SWAB [id number] CULTURE, GROUP B STREP WITH SUSCEPTIBILITY CLINISYNCNOMS HealthcareOutside Recordson 14-43-7253Zqumqnj Records [id number]#1.00OTGTCleveland Clinic Children's [facility] 12-LEADon 28-02-0680RrhMinburn[place] [address] Electrocardiograph Report Signed Patient: SHERLY ERICKSON MR#: [id number] : 2000 Acct:[id number] Age/Sex: 24 / F ADM Date: 12/20/24 Loc: Attending Dr: Cole Alonso D.O. Ordering Physician: Cole Alonso D.O. Date of Service: 12/20/24 Procedure(s): ECG 12 lead Accession Number(s): [id number] cc: [facility] Test Date: 2024-12-20 Pat Name: SHERLY ERICKSON Department: Room: [facility] Gender: Female Double Backer: : 2000 Requested By: COLE ALONSO Order Number: [id number] Reading MD: NANCY SAXENA M.D. Measurements Intervals [place] Rate: 78 P: 23 IA: 148 QRS: 42 QRSD: 78 T: 19 QT: 353 QTc: 403 Interpretive Statements SINUS RHYTHM WITH MARKED SINUS ARRHYTHMIA Normal ECG No previous ECG available for comparison Electronically Signed On 12-20-2024 17:13:49 EDT by NANCY SAXENA M.D. Dictated By: NANCY SAXENA Signed By: 12/20/24 1714 DD/ 1117 TD/TT: Regulatory Lead:TBHRadiology, Radiologist, - 12/20/2024 [place] [address] Electrocardiograph Report Signed Patient: SHERLY ERICKSON MR#: [id number] : 2000 Acct:[id number] Age/Sex: 24 / F ADM Date: 12/20/24 Loc: Attending Dr: Cole Alonso D.O. Ordering Physician: Cole Alonso D.O. Date of Service: 12/20/24 Procedure(s): ECG 12 lead Accession Number(s): [id number] cc: [facility] Test Date: 2024-12-20 Pat Name: SHERLY ERICKSON Department: Room: [facility] Gender: Female Double Backer: : 2000 Requested By: COLE ALONSO Order Number: [id number] Reading MD: NANCY SAXENA M.D. Measurements Intervals [place] Rate: 78 P: 23 IA: 148 QRS: 42 QRSD: 78 T: 19 QT: 353 QTc: 403 Interpretive Statements SINUS RHYTHM WITH MARKED SINUS ARRHYTHMIA Normal ECG No previous ECG available for comparison Electronically Signed On 12-20-2024 17:13:49 EDT by NANCY SAXENA M.D. Dictated By: NANCY SAXENA Signed By: 12/20/24 1714 DD/ 1117 TD/TT: Regulatory Lead: LUIS HealthcareRadiology Study observation (narrative)NOM HealthcareECG 12-LEAD Ordered By: Radiologist Radiology on 14-71-5359KVYZ Healthcare Work Phone: us OB BPP W NON-STRESSon 86-80-9353Bot[place] [address] Ultrasound Report Signed Patient: SHERLY ERICKSON MR#: [id number] : 2000 Acct:[id number] Age/Sex: 24 / F ADM Date: 12/20/24 Loc: [place] [address]: Cole Alonso D.O. Ordering Physician: Cole Alonso D.O. Date of Service: 12/20/24 Procedure(s): US OB BPP w non-stress Accession Number(s): [id number] cc: RADHA MENDOZA ; Cole Alonso D.O. [address] [address] Patient Name: SHERLY ERICKSON MRN: [id number]:[id number] date: 2000 Sex: F Assigned Patient Location: Current Patient Location: US Accession/Order Number: [id number] Exam Date: 12/20/2024 10:46 Report Date: 12/20/2024 10:48 At the request of: COLE ALONSO DO Procedure: US OB BPP w non-stress BIOPHYSICAL PROFILE: CLINICAL INFORMATION: Excessive growth COMPARISON: 12/17/2024 There is a single live intrauterine gestation in cephalic presentation. The reported gestational age is 36 weeks 6 days. There is cardiac activity with heart rate of 147 bpm. FINDINGS: TONE: 1 or more episodes of [...] greater than 2 cm [Y] 2/2 JET: 18.9 cm. This is in upper normal range. Total score: 8/8 US/US OB BPP w non-stress IMPRESSION: NORMAL BIOPHYSICAL PROFILE. Impression dictated by: Bailey Beasley M.D.12/20/2024 10:48 AM Dictation Location: [place] [address] Electronically authenticated by: [id number] Y Date: 12/20/2024 10:48 Dictated By: Bailey Beasley M.D. Signed By: 12/20/24 1051 DD/ 1048 TD/TT: Regulatory Lead:[facility]IAHRad[facility], Radiologist, - 12/20/2024 [place] [address] Ultrasound Report Signed Patient: SHERLY ERICKSON MR#: [id number] : 2000 Acct:[id number] Age/Sex: 24 / F ADM Date: 12/20/24 Loc: [facility] 250-[address]: Cole Alonso D.O. Ordering Physician: Cole Alonso D.O. Date of Service: 12/20/24 Procedure(s): US OB BPP w non-stress Accession Number(s): [id number] cc: RADHA MENDOZA ; Cole Alonso D.O. [address] [address] Patient Name: SHERLY ERICKSON MRN: [id number]:[id number] date: 2000 Sex: F Assigned Patient Location: US Current Patient Location: US Accession/Order Number: [id number] Exam Date: 12/20/2024 10:46 Report Date: 12/20/2024 10:48 At the request of: COLE ALONSO DO Procedure: US OB BPP w non-stress BIOPHYSICAL PROFILE: CLINICAL INFORMATION: Excessive growth COMPARISON: 12/17/2024 There is a single live intrauterine gestation in cephalic presentation. The reported gestational age is 36 weeks 6 days. There is cardiac activity with heart rate of 147 bpm. FINDINGS: TONE: 1 or more episodes of [...] greater than 2 cm [Y] 2/2 JET: 18.9 cm. This is in upper normal range. Total score: 8/8 US/US OB BPP w non-stress IMPRESSION: NORMAL BIOPHYSICAL PROFILE. Impression dictated by: Bailey Beasley M.D.12/20/2024 10:48 AM Dictation Location: [place] [address] Electronically authenticated by: [id number] Y Date: 12/20/2024 10:48 Dictated By: Bailey Beasley M.D. Signed By: 12/20/24 1051 DD/ 1048 TD/TT: Regulatory Lead: LUIS HealthcareRadiology Study observation (narrative)NOMS HealthcareUS OB BPP W NON-STRESSOrdered By: Radiologist Radiology on 72-26-5972NSKOSaint [facility] Work Phone: Outside Recordson 20-76-5735Lzyksun Records [id number]#1.00[facility] Urinalysis macro (dipstick) panel (U)on 73-04-9008Hsysyauwf, UANegativeNegative - 4(70) +++ mg/dLNOMS HealthcareBlood, UANegativeNegative - 50 Osvaldo/mcLNOMS HealthcareClarity, UAClearNOMS HealthcareColor, UAYellowNOMS HealthcareGlucose, UANegativeNegative - 2000(110) ++++ mg/dLNOAR HealthcareInterpretation and review of laboratory resultsAbnormalNOAR HealthcareKetones, UANegativeNegative - 160(16) ++++ mg/dLNOMS HealthcareLeukocytes, UAPositiveNegative - 500+++ Edison/mcLNOMS HealthcareComment on above:smallNitrite, UANegativeNegative - PositiveNOMS HealthcarepH, UA75 - 9NOMS HealthcareProtein, UANegativeNegative - 2000(20) ++++ mg/dLNOMS HealthcareSpec Grav, UA1.0151 - 1.03NOAR Healthcare Urobilinogen, UA1.00.2 - 12 mg/dLNOMS HealthcareNOMS HealthcareUS OB BPP W NON-STRESSon 41-67-1377[place]tc[place] [address] Ultrasound Report Signed Patient: SHERLY ERICKSON MR#: [id number] : 2000 Acct:[id number] Age/Sex: 24 / F ADM Date: 12/17/24 Loc: [facility] 250-[address]: Cole Alonso D.O. Ordering Physician: Cole Alonso D.O. Date of Service: 12/17/24 Procedure(s): US OB BPP w non-stress Accession Number(s): [id number] cc: RADHA MENDOZA ; Cole Alonso D.O. The [address] [address] Patient Name: SHERLY ERICKSON MRN: [id number] date: 2000 Sex: F Assigned Patient Location: [facility] Current Patient Location: [facility] Accession/Order Number: [id number] Exam Date: 12/17/2024 12:05 Report Date: 12/17/2024 [...] Bailey Beasley M.D.12/17/2024 12:09 PM Dictation Location: [place] [address] Electronically authenticated by: [id number] Y Date: 12/17/2024 12:09 Dictated By: Bailey Beasley M.D. Signed By: 12/17/24 1212 DD/ 1209 TD/TT: Regulatory Lead:[facility]IAHRadiology, Radiologist, - 12/17/2024 [place] [address] Ultrasound Report Signed Patient: SHERLY ERICKSON MR#: [id number] : 2000 Acct:[id number] Age/Sex: 24 / F ADM Date: 12/17/24 Loc: [place] [address]-[address]: Cole Alonso D.O. Ordering Physician: Cole Alonso D.O. Date of Service: 12/17/24 Procedure(s): US OB BPP w non-stress Accession Number(s): [id number] cc: RADHA MENDOZA ; Cole Alonso D.O. [place] [address] Patient Name: SHERLY ERICKSON MRN: TBH:[id number] date: 2000 Sex: F Assigned Patient Location: [facility] Current Patient Location: [facility] Accession/Order Number: [id number] Exam Date: 12/17/2024 12:05 Report Date: 12/17/2024 [...] Bailey Beasley M.D.12/17/2024 12:09 PM Dictation Location: [place] [address] Electronically authenticated by: [id number] Y Date: 12/17/2024 12:09 Dictated By: Bailey Beasley M.D. Signed By: 12/17/24 1212 DD/ 1209 TD/TT: Regulatory Lead: [facility] HealthcareRadiology Study observation (narrative)NOMS HealthcareUS OB BPP W NON-STRESSOrdered By: Radiologist Radiology on 42-46-9292HQVO Healthcare Work Phone: Outside Recordson 91-17-8485Zmvleez Records [id number]#1.00[facility] Urinalysis macro (dipstick) panel (U)on 26-35-4812Tgspgzmkv, UANegativeNegative - 4(70) +++ mg/dLNOMS HealthcareBlood, UANegativeNegative - 50 Osvaldo/mcLNOMS HealthcareClarity, UAClearNOMS HealthcareColor, UAYellowNOMS HealthcareGlucose, UANegativeNegative - 2000(110) ++++ mg/dLNOMS HealthcareInterpretation and review of laboratory resultsNormalNOMS HealthcareKetones, UANegativeNegative - 160(16) ++++ mg/dLNOMS HealthcareLeukocytes, UANegativeNegative - 500+++ Edison/mcL NOMS HealthcareNitrite, UANegativeNegative - PositiveNOMS HealthcarepH, UA65 - 9 NOMS HealthcareProtein, UANegativeNegative - 2000(20) ++++ mg/dLNOMS Healthcare Spec Grav, UA1.0251 - 1.03NOMS HealthcareUrobilinogen, UA1.00.2 - 12 mg/dLNOMS HealthcareNOMS HealthcareUS OB BPP W NON-STRESSon 29-70-5668WnvMin[place], [place] [address] Ultrasound Report Signed Patient: SHERLY ERICKSON MR#: [id number] : 2000 Acct:[id number] Age/Sex: 24 / F ADM Date: 12/10/24 Loc: US Attending Dr: Cole Alonso D.O. Ordering Physician: Cole Alonso D.O. Date of Service: 12/10/24 Procedure(s): US OB BPP w non-stress Accession Number(s): [id number] cc: RADHA MENDOZA ; Cole Alonso D.O. The [address] [address] Patient Name: SHERLY ERICKSON MRN: [facility]:[id number] date: 2000 Sex: F Assigned Patient Location: US Current Patient Location: Accession/Order Number: [id number] Exam Date: 12/10/2024 13:07 Report Date: 12/10/2024 13:08 At the request of: COLE ALONSO DO Procedure: US OB BPP w non-stress Biophysical profile. Reason for exam: Excessive growth. COMPARISON: BPP 11/19/2024. TECHNIQUE: Transabdominal imaging of the gravid uterus was obtained. FINDINGS: Cpa Tax reports a BPP of 8 out of 8. Abnormal JET of 29.8 cm. heart rate 131 bpm. US/US OB BPP w non-stress IMPRESSION: BPP 8 out of 8. Polyhydramnios. Impression dictated by: Alexy Sparks Jr., D.O.12/10/2024 1:08 PM Dictation Location: [place] [address] Electronically authenticated by: [id number] Y Date: 12/10/2024 13:08 Dictated By: Alexy Sparks M.D. Signed By: 12/10/24 1310 DD/ 1308 TD/TT: Regulatory Lead:APURVAadiologjyoti, Radiologist, - 12/10/2024 The [place] [id number] Ultrasound Report Signed Patient: SHERLY ERICKSON MR#: [id number] : 2000 Acct:[id number] Age/Sex: 24 / F ADM Date: 12/10/24 Loc: US Attending Dr: Cole Alonso D.O. Ordering Physician: Cole Alonso D.O. Date of Service: 12/10/24 Procedure(s): US OB BPP w non-stress Accession Number(s): [id number] cc: RADAH MENDOZA ; Cole Alonso D.O. [address] [address] Patient Name: SHERLY ERICKSON MRN: TBH:[id number] date: 2000 Sex: F Assigned Patient Location: Current Patient Location: Accession/Order Number: [id number] Exam Date: 12/10/2024 13:07 Report Date: 12/10/2024 13:08 At the request of: COLE ALONSO DO Procedure: US OB BPP w non-stress Biophysical profile. Reason for exam: Excessive growth. COMPARISON: BPP 11/19/2024. TECHNIQUE: Transabdominal imaging of the gravid uterus was obtained. FINDINGS: Cpa Tax reports a BPP of 8 out of 8. Abnormal JET of 29.8 cm. heart rate 131 bpm. US/US OB BPP w non-stress IMPRESSION: BPP 8 out of 8. Polyhydramnios. Impression dictated by: Alexy Sparks Jr., D.O.12/10/2024 1:08 PM Dictation Location: [place] [address] Electronically authenticated by: [id number] Y Date: 12/10/2024 13:08 Dictated By: Alexy Sparks M.D. Signed By: 12/10/24 1310 DD/ 1308 TD/TT: Regulatory Lead: LUIS HealthcareRadiology Study observation (narrative)NOMS HealthcareUS OB BPP W NON-STRESSOrdered By: Radiologist Radiology on 94-99-0316ES[facility] Work Phone: Outside Recordson 27-24-8708Fxlkcel Records [id number]#1.00[facility] Office Visiton 81-90-4483Ozfnbl-up [id number] Sherly Erickson 2000 F Date Provider Department Center 12/03/2024 ANGEL LUIS SAUCEDO [facility] Family History Problem Relation Age of Onset Diabetes Mother Diabetes Maternal Grandmother Diabetes Maternal Grandfather Family Status - Relation Status Age at Mother Maternal Grandmother Maternal Grandfather Level of Service:10586 [place] OFFICE/OUTPATIENT ESTABLISHED LOW MDM 20 MIN Reason for Visit and Comments: Hypertension [385175] Hyperlipidemia [182]NormalSheltering Arms HospitalUS OB BPP W NON-STRESSon 98-87-0031Yjs[address] [address] Ultrasound Report Signed Patient: SHERLY ERICKSON MR#: [id number] : 2000 Acct:[id number] Age/Sex: 24 / F ADM Date: 12/03/24 Loc: US Attending Dr: Cole Alonso D.O. Ordering Physician: Cole Alonso D.O. Date of Service: 12/03/24 Procedure(s): US OB BPP w non-stress Accession Number(s): [id number] cc: RADHA MENDOZA ; Cole lAonso D.O. [place] [address] Patient Name: SHERLY ERICKSON MRN: [id number] date: 2000 Sex: F Assigned Patient Location: [facility] Current Patient Location: Accession/Order Number: [id number] Exam Date: 12/03/2024 14:34 Report Date: 12/03/2024 [...] Robert Hui M.D.12/03/2024 2:36 PM Dictation Location[facility] Electronically authenticated by: [id number] Y Date: 12/03/2024 14:36 Dictated By: Robert Hui D.O. Signed By: 12/03/24 1438 DD/ 35 TD/TT: Regulatory Lead:APURVAadiology, Radiologist, - 12/03/2024 The [place] [id number] Ultrasound Report Signed Patient: SHERLY ERICKSON MR#: [id number] : 2000 Acct:[id number] Age/Sex: 24 / F ADM Date: 12/03/24 Loc: US Attending Dr: Cole Alonso D.O. Ordering Physician: Cole Alonso D.O. Date of Service: 12/03/24 Procedure(s): US OB BPP w non-stress Accession Number(s): [id number] cc: RADHA MENDOZA ; Cole Alonso D.O. The [address] [address] Patient Name: SHERLY ERICKSON MRN: [facility]:[id number] date: 2000 Sex: F Assigned Patient Location: [facility] Current Patient Location: Accession/Order Number: [id number] Exam Date: 12/03/2024 14:34 Report Date: 12/03/2024 [...] Robert Hui M.D.12/03/2024 2:36 PM Dictation Location: [employer] Electronically authenticated by: [id number] Y Date: 12/03/2024 14:36 Dictated By: Robert Hui D.O. Signed By: 12/03/24 1438 DD/ 35 TD/TT: Regulatory Lead: LUIS PollockRadiology Study observation (narrative)NOMS HealthcareUS OB BPP W NON-STRESSOrdered By: Radiologist Radiology on 43-67-7338[facility] Work Phone: Outside Recordson 13-97-6019Tmpdhwg Records [id number]#1.00OTGTIFFNoAnn HospitalUS OB BPP W NON-STRESSon 24-21-2577[place] [address] Ultrasound Report Signed Patient: SHERLY ERICKSON MR#: [id number] : 2000 Acct:[id number] Age/Sex: 24 / F ADM Date: 11/26/24 Loc: US Attending Dr: Cole Alonso D.O. Ordering Physician: Cole Alonso D.O. Date of Service: 11/26/24 Procedure(s): US OB BPP w non-stress Accession Number(s): [id number] cc: RADHA MENDOZA ; Cole Alonso D.O. [address] [address] Patient Name: SHERLY ERICKSON MRN: [id number] date: 2000 Sex: F Assigned Patient Location: US Current Patient Location: Accession/Order Number: [id number] Exam Date: 11/26/2024 14:21 Report Date: 11/26/2024 14:21 At the request of: COLE ALONSO DO Procedure: US OB BPP w non-stress Biophysical profile. Reason for exam: Excessive growth. COMPARISON: BPP 11/19/2024. TECHNIQUE: Transabdominal imaging of the gravid uterus was obtained. FINDINGS: Cpa Tax reports a BPP of 8 out of 8. Normal JET of 22.6 cm. heart rate 146 bpm. US/US OB BPP w non-stress IMPRESSION: BPP 8 out of 8. Impression dictated by: Alexy Sparks Jr., D.O.11/26/2024 2:21 PM Dictation Location: [facility]ERTifen.[facility] Electronically authenticated by: [id number] Y Date: 11/26/2024 14:21 Dictated By: Alexy Sparks M.D. Signed By: 11/26/24 1424 DD/ 20 TD/TT: Regulatory Lead:APURVAadiologjyoti, RadiologistMD - 11/26/2024 [place] [address] Ultrasound Report Signed Patient: SHERLY ERICKSON MR#: [id number] : 2000 Acct:[id number] Age/Sex: 24 / F ADM Date: 11/26/24 Loc: US Attending Dr: Cole Alonso D.O. Ordering Physician: Cole Alonso D.O. Date of Service: 11/26/24 Procedure(s): US OB BPP w non-stress Accession Number(s): [id number] cc: RADHA MENDOZA ; Cole Alonso D.O. The [place] [address] Patient Name: SHERLY ERICKSON MRN: [id number]:[id number] date: 2000 Sex: F Assigned Patient Location: Current Patient Location: Accession/Order Number: [id number] Exam Date: 11/26/2024 14:21 Report Date: 11/26/2024 14:21 At the request of: COLE ALONSO DO Procedure: US OB BPP w non-stress Biophysical profile. Reason for exam: Excessive growth. COMPARISON: BPP 11/19/2024. TECHNIQUE: Transabdominal imaging of the gravid uterus was obtained. FINDINGS: Cpa Tax reports a BPP of 8 out of 8. Normal JET of 22.6 cm. heart rate 146 bpm. US/US OB BPP w non-stress IMPRESSION: BPP 8 out of 8. Impression dictated by: Alexy Sparks Jr., D.O.11/26/2024 2:21 PM Dictation Location: [facility]-18 Electronically authenticated by: [id number] Y Date: 11/26/2024 14:21 Dictated By: Alexy Sparks M.D. Signed By: 11/26/24 1424 DD/ 142 TD/TT: Regulatory Lead: LUIS HealthcareRadiology Study observation (narrative)[facility] OB BPP W NON-STRESSOrdered By: Radiologist Radiology on 98-73-1826XGLA [facility] Work Phone: Legal Documentson 41-40-4721Hyrmw Documents [id number]#1.00[facility] Urinalysis macro (dipstick) panel (U)on 23-41-1226Thkoyesec, UANegativeNegative - 4(70) +++ mg/dLNOMS HealthcareBlood, UANegativeNegative - 50 Osvaldo/mcLNOMS HealthcareClarity, UAClearNOMS HealthcareColor, UAYellowNOMS HealthcareGlucose, UANegativeNegative - 2000(110) ++++ mg/dLNOMS HealthcareInterpretation and review of laboratory resultsNormalNOMS HealthcareKetones, UANegativeNegative - 160(16) ++++ mg/dLNOMS HealthcareLeukocytes, UANegativeNegative - 500+++ Edison/mcL NOMS HealthcareNitrite, UANegativeNegative - PositiveNOMS HealthcarepH, UA6.55 - 9NOMS HealthcareProtein, UANegativeNegative - 2000(20) ++++ mg/dLNOMS HealthcareSpec Grav, UA1.021 - 1.03NOMS HealthcareUrobilinogen, UA0.20.2 - 12 mg/dLNOMS HealthcareNOMS HealthcareOutside Recordson 96-22-4900Byqhwkt Records [id number]#1.00[facility] OB BPP W NON-STRESSon 05-86-7719Mdx[address] [address] Ultrasound Report Signed Patient: SHERLY ERICKSON MR#: [id number] : 2000 Acct:[id number] Age/Sex: 24 / F ADM Date: 11/12/24 Loc: US Attending Dr: Cole Alonso D.O. Ordering Physician: Cole Alonso D.O. Date of Service: 11/12/24 Procedure(s): US OB BPP w non-stress Accession Number(s): [id number] cc: RADHA MENDOZA ; Cole Alonso D.O. [place] [address] Patient Name: SHERLY ERICKSON MRN: [id number] date: 2000 Sex: F Assigned Patient Location: US Current Patient Location: Accession/Order Number: [id number] Exam Date: 11/12/2024 13:57 Report Date: 11/12/2024 13:58 At the request of: COLE ALONSO DO Procedure: US OB BPP w non-stress BIOPHYSICAL PROFILE: CLINICAL INFORMATION: Excessive growth COMPARISON: Pelvic ultrasound 06/07/2024 There is a single live intrauterine gestation in breech presentation. The reported gestational age is 31 weeks 3 days. The heart rate thguthdv726 beats per minute. FINDINGS: TONE: 1 or [...] Bailey Beasley M.D.11/12/2024 1:58 PM Dictation Location: [place] [address] Electronically authenticated by: [id number] Y Date: 11/12/2024 13:58 Dictated By: Bailey Beasley M.D. Signed By: 11/12/24 1401 DD/ 1358 TD/TT: Regulatory Lead:TBHRadiology, Radiologist, - 11/12/2024 [place] [address] Ultrasound Report Signed Patient: SHERLY ERICKSON MR#: [id number] : 2000 Acct:[id number] Age/Sex: 24 / F ADM Date: 11/12/24 Loc: US Attending Dr: Cole Alonso D.O. Ordering Physician: Cole Alonso D.O. Date of Service: 11/12/24 Procedure(s): US OB BPP w non-stress Accession Number(s): [id number] cc: RADHA MENDOZA ; Cole Alonso D.O. The [place] [id number] Patient Name: SHERLY ERICKSON MRN: [id number]:[id number] date: 2000 Sex: F Assigned Patient Location: US Current Patient Location: Accession/Order Number: [id number] Exam Date: 11/12/2024 13:57 Report Date: 11/12/2024 [...] Bailey Beasley M.D.11/12/2024 1:58 PM Dictation Location: [place] [address] Electronically authenticated by: [id number] Y Date: 11/12/2024 13:58 Dictated By: Bailey Beasley M.D. Signed By: 11/12/24 1401 DD/ 1358 TD/TT: Regulatory Lead: LUIS HealthcareRadiology Study observation (narrative)[facility] HealthcareUS OB BPP W NON-STRESSOrdered By: Radiologist Radiology on 83-92-7023DSKB Healthcare Work Phone: Outside Recordson 14-99-5958Vkdzgiz Records [id number]#1.00[facility] Urinalysis macro (dipstick) panel (U)on 59-36-8950Rhsydygzc, UANegativeNegative - 4(70) +++ mg/dLNOMS HealthcareBlood, UANegativeNegative - 50 Osvaldo/mcLNOMS HealthcareClarity, UAClearNOMS HealthcareColor, UAYellowNOMS HealthcareGlucose, UANegativeNegative - 2000(110) ++++ mg/dLNOMS HealthcareInterpretation and review of laboratory resultsNormalNOMS HealthcareKetones, UANegativeNegative - 160(16) ++++ mg/dLNOMS HealthcareLeukocytes, UANegativeNegative - 500+++ Edison/mcL NOMS HealthcareNitrite, UANegativeNegative - PositiveNOMS HealthcarepH, UA6.55 - 9NOMS HealthcareProtein, UANegativeNegative - 2000(20) ++++ mg/dLNOMS HealthcareSpec Grav, UA1.021 - 1.03NOMS HealthcareUrobilinogen, UA0.20.2 - 12 mg/dLNOMS HealthcareNOMS HealthcareOffice/Clinic Noteon 79-02-3735Mbcjmw/Clinic NotePatient: SHERLY ERICKSON Age: 24 years Sex: FEMALE : 2000 Associated Diagnoses: Tinea corporis; Tinea corporis; Eustachian tube dysfunction Author: Radha Mendoza MD A History of Present Illness 24-year-old female who is currently 25 weeks presents today with complaints of diminished hearing in her right ear. Denies any pain. She was recently seen in the urgent care and treated withan antibiotic for otitis media on the left. That has resolved. She is now noticing diminished hearing but no pain no drainage. She is having continued nasal congestion. But overall is feeling better.She also has a rash in her right [...] 124.010 kg Body Mass Index 42.82 kg/m2 Soper Body Weight Calculated 61.6 kg BSA Measured [...] lesion. Impression and Plan Diagnosis Tinea corporis (BSC25-RQ B35.4). Plan: Will treat with topical antifungal over the next 7 to 10 days.. Orders Orders Pharmacy: ketoconazole 2% topical cream (Prescribe): 1 zoran, Topical, Daily, for 10 day(s), 30 gm, 0 Refill(s). Orders Evaluation and Management: [address]281 Office visit - established pt, Level 3 (Order): 10/25/2024 13:24 EST, Qty: 1, Tinea corporis -Eustachian tube dysfunction. Diagnosis Eustachian tube dysfunction (FBI93-DE H69.90). Course: Discussed with patient most likely some fluid behind her ear. No evidence infection. Continue to just observe.. [Electronically Signed on: 10/25/2024 14:14 EST] Jason MCNEAL, Radha Santo [Verified on: 10/25/2024 14:14 EST] Radha Mendoza MD [facility] CenterALL CBC WITH AUTO DIFFon 10-24-2024 BASOPHILS ABSOLUTE KUHE8GANZ HealthcareBasophils/100 WBC (Bld)0.3 %0.2 - 2.0 % NOMS HealthcareEosinophils/100 WBC (Bld)2.1 %0.9 - 7.0 %[facility] Erythrocyte distribution width (RBC) [Ratio]14.3 %11.0 - 15.0 %[facility] Hematocrit (Bld) [Volume fraction]32.1 %Low36.0 - 48.0 %[facility] Hemoglobin (Bld) [Mass/Vol]10.5 g/dLLow12.0 - 16.0 g/dLNOMS HealthcareIMMATURE GRANULOCYTES ABS AUTO0.34HighNOMS HealthcareImmature granulocytes/100 WBC (Bld) 3.4 %High0.0 - 0.5 %NOMS HealthcareInterpretation and review of laboratory resultsAbnormalNOMS HealthcareLYMPHOCYTES ABSOLUTE AUTO2.4N[facility] Lymphocytes/100 WBC (Bld)24 %20.5 - 60.0 %[facility]H (RBC) [Entitic mass]27.9 pg26.7 - 34.0 pgNOSaint Luke's Health SystemHC (RBC) [Mass/Vol]32.7 g/dL29.9 - 35.2 g/dLSaint Mary's Hospital of Blue SpringsV (RBC) [Entitic vol]85.4 fL81.0 - 99.0 fLMOUNTAIN VIEW HOSPITAL HealthcareMONOCYTES ABSOLUTE AUTO0.4NOAR HealthcareMonocytes/100 WBC (Bld)4.2 % 1.7 - 12.0 %NOMS HealthcareNEUTROPHILS ABSOLUTE AUTO6.7HighNOAR Healthcare Neutrophils/100 WBC (Bld)66 %43.0 - 75.0 %NOMS HealthcarePlatelet mean volume (Bld) [Entitic vol]9 fLLow9.5 - 13.5 fLNOAR HealthcareTBH EO #0.2[facility] TBH MDD082YIHR [facility] HospitalTB RBC3.76LowNOAR HealthcareTBH WBC10.1N[facility] Healthcare CLINISYNCMOUNTAIN [facility]IEW [facility] HealthcareOffice Visiton 25-30-3994Ljctac-up [id number] Sherly Erickson 2000 F Date Provider Department Center 10/24/2024 [address]-RIGZXFANGEL LUIS EVANS Family History Problem Relation Age of Onset Diabetes Mother Diabetes Maternal Grandmother Diabetes Maternal Grandfather Family Status - Relation Status Age at Mother Maternal Grandmother Maternal Grandfather Level of Service:33233 [place] OFFICE/OUTPATIENT NEW MODERATE MDM 45 MINUTES Reason for Visit and Comments: Rapid Heart Rate [430558] - Episodes of tachycardia include lightheadedness and SOB. Denies chest pain. She says sometimes HR gets up to 160's with rest. Problem [053027] - Currently 28 weeks gestation. This is her 2nd . She denies having issues like this during first . Palpitations [463777] Shortness of Breath [552971] Dizziness [124828]NormalUnKettering Health PrebleUrinalysis macro (dipstick) panel (U)on 27-93-0877Iftiokytu, UANegativeNegative - 4(70) +++ mg/dL NOMS HealthcareBlood, UANegativeNegative - 50 Osvaldo/mcLNOMS HealthcareClarity, UA ClearNOMS HealthcareColor, UAYellowNOMS HealthcareGlucose, UANegativeNegative - 2000(110) ++++ mg/dLNOMS HealthcareInterpretation and review of laboratory resultsNormalNOMS HealthcareKetones, UANegativeNegative - 160(16) ++++ mg/dLNOMS HealthcareLeukocytes, UANegativeNegative - 500+++ Edison/mcLNOMS Healthcare Nitrite, UANegativeNegative - PositiveNOMS HealthcarepH, UA75 - 9[facility] Protein, UANegativeNegative - 2000(20) ++++ mg/dLNOMS HealthcareSpec Grav, UA 1.0151 - 1.03NOMS HealthcareUrobilinogen, UA0.20.2 - 12 mg/dLNOMS HealthcareNOMS HealthcareC Throaton 10-08-2024 ThroatNormal throat justine isolated No pathogens isolatedUC West Chester HospitalComment on above:Performed By: #### [id number] ####[facility] (DEFAULT)[address] [place] [address] Coding Summaryon 23-34-1964Brodon SummaryMLBase 64 JfpjdzfrEQb2dEg+PGhlYWQ+OO1WVMCyU43ewRGcbE2hX4TMIQvKSzcgREOGIXzUNzZfkbXdYX2zgBOr ZXJu [file] Y29 (more content not included)...[facility] HospitalPOCT Rapid Strepon 10-06-2024S. pyogenes Ag IA Ql (Unsp spec)NegativeInvalid Interpretation Code [facility]iff[facility] HospitalComment on above:Performed By: #### [id number] ####[facility] (DEFAULT)[address] [place] [address] 97460N Throaton 09-26-2024 ThroatNormal throat justine isolated No pathogens isolatedUC West Chester HospitalComment on above:Performed By: #### [id number] #### [facility] (DEFAULT) [address] [place] [address] 95769Fxkihv Summaryon [id number] SummaryHTMLBase 64 UytshyafNDl7iYs+PGhlYWQ+SJ8IMPCmW02pxJAyjM2aA0FOHVdZGmzsUYZCCRxMZpRtmcZvMT1eoEBl ZXJu [file] Y29 (more content not included)...[facility] HospitalED Clinical Summaryon [id number] [facility] [address] [place] [address] Clinical Summary PERSON INFORMATION Name: SHERLY ERICKSON Age: 24 Years Sex: FEMALE : 2000 MRN: Acct#: Visit Reason: UC - Throat Problem; THROAT PROBLEM LT SIDE Arrival: 09/24/2024 12:32:36 Discharge: 09/24/2024 13:30:00 LOS: 000 00:58 Check In: 09/24/2024 12:32:36 Checkout: 09/24/2024 13:30:00 Address: [address] [place] [address] PCP: Radha Mendoza MD PROVIDER INFORMATION Provider [...] Follow-Up: With: Address: When: Radha Mendoza MD [address] [place] [address] In 3 days Comments: You have been [...] of salt, and gargle and spit at least2-3 times daily for the next 5-7 days. Follow up with primary care provider in next 3-5 days, also f/u with your EMBROIDERY CUTTER, for reevaluation, return to the emergency department/urgent care for worseningsymptoms or concerns, spiking fevers, intractable nausea or vomiting, acute shortness of breath, difficulty swallowing, or any questions. You have been diagnosed with thrush. This is a fungal infection in your mouth. You will be given clotrimazole troches, these are wafers that will dissolve in your mouth. You will take these 3 times aday for the next 7 days. DIAGNOSIS: 1:Oral bonita; 2:Pharyngitis Patient Understands: Comment:[facility] HospitalED Patient Summary [id number] Patient Summary [facility] ? Urgent Care [address] [place] [address] PATIENT DISCHARGE INSTRUCTIONS Patient Information Name: SHERLY ERICKSON Age: 24 Years Date of : 2000 Reason For Visit: UC - Throat Problem; THROAT PROBLEM LT SIDE Arrival Time: 09/24/2024 12:32:36 Primary Care Physician: Radha Mendoza MD Attending Physician: Larissa Cobb Comment: Patient Education With: Address: When: Radha Mendoza MD [address] [place], [place] [id number] In 3 days Comments: You have been [...] of salt, and gargle and spit at least2-3 times daily for the next 5-7 days. Follow up with primary care provider in next 3-5 days, also f/u with your EMBROIDERY CUTTER, for reevaluation, return to the emergency department/urgent care for worseningsymptoms or concerns, spiking fevers, intractable nausea or vomiting, acute shortness of breath, difficulty swallowing, or any questions. You have been diagnosed with thrush. This is a fungal infection in your mouth. You will be given clotrimazole troches, these are wafers that will dissolve in your mouth. You will take these 3 times aday for the next 7 days. Pharyngitis Pharyngitis [...] history and a physical exam. Your health careprovider will ask you questions about your illness and your symptoms. A swab of your throat may be done to check for bacteria (rapid strep test). Other lab tests may also be done, depending on the suspected cause, but these are rare. How is this treated? Many times, treatment is not needed for this condition. Pharyngitis usually gets better in 3?4 dayswithout treatment. Bacterial pharyngitis may be treated with antibiotic medicines. Follow these instructions at home: Medicines ? Take miud-rdg-nrlshis and prescription medicines only as told by [...] Putting a cool-mist humidi (more content not included)...[facility] HospitalPOCT Rapid Strepon 09-24-2024S. pyogenes Ag IA Ql (Unsp spec)Negative Invalid Interpretation [facility] HospitalComment on above:Performed By: #### [id number] #### [facility] (DEFAULT) [address] [place] [address] 75495Kqgevb Care Recordon [id number] Care [facility] ? Urgent Care [address] [place] [address] PATIENT DISCHARGE INSTRUCTIONS Patient Information Name: SHERLY ERICKSON Age: 24 Years Date of : 2000 [facility]: [id number] Reason For Visit: UC - Throat Problem; THROAT PROBLEM LT SIDE Arrival Time: 09/24/2024 12:32:36 Primary Care Physician: Radha Mendoza MD Attending Physician: Larissa Cobb Comment: Visit Diagnosis: Diagnoses This Visit Oral bonita (B37.0) Pharyngitis (J02.9) UC - Throat Problem ([id number]) If you received any narcotics, sedation, or [...] documents With: Address: When: Radha Mendoza MD [address] [place], [place] [id number] In 3 days Comments: You have been [...] of salt, and gargle and spit at least2-3 times daily for the next 5-7 days. Follow up with primary care provider in next 3-5 days, also f/u with your EMBROIDERY CUTTER, for reevaluation, return to the emergency department/urgent care for worseningsymptoms or concerns, spiking fevers, intractable nausea or vomiting, acute shortness of breath, difficulty swallowing, or any questions. You have been diagnosed with thrush. This is a fungal infection in your mouth. You will be given clotrimazole troches, these are wafers that will dissolve in your mouth. You will take these 3 times aday for the next 7 days. Medication Information: The exam and treatment you received today in the [facility] were for an urgent problem and are not intended as complete care. It is important for you to follow up with a doctor, nurse practitioner, or physician?s hair assistant for ongoing care. If your symptoms [...] so we can reach you if necessary. [facility] has provided you with a complete list of medications post discharge. Please inform your veneer production machine operator/provider of your visit and for further instruction on these medications. Any specific questions regarding your chronic medications and dosages should be discussed with your primary care physician(s) and/or pharmacist. New Medications [facility] [id number] [place], [place] [id number], [phone] clotrimazole (clotrimazole 10 mg oral lozenge) 1 [...] bacteria, but it is (more content not included)...NormalMount St[facility] HospitalTelephone Encounteron 09-20-2024 Gear Tooth Grinding Machine Operator Authentication Interface Message TextCalled patient lmom to call office for sooner appt... we have them available. [facility] RAPID (URINE)on 09-10-2024 AMPHETAMINE SCREEN URINENegativeNEGATIVENOMS HealthcareBARBITURATES SCREEN URINE NegativeNEGATIVENOMS HealthcareBENZODIAZEPINES SCREEN URINENegativeNEGATIVENOMS HealthcareBUPRENORPHINE SCREEN URINENegativeNEGATIVENOMS HealthcareComment on above:DRUG CLASS TEST SYSTEM CUT-OFF CONCENTRATIONS ARE FOLLOWS: AMP (Amphetamine): 500 ng/mL BAR (Barbiturates): 200 ng/mL BZO (Benzodiazepines): 150 ng/mL BUP (Buprenorphine): 10 ng/mL DOROTHEA (Cocaine): 150 ng/mL mAMP (Methamphetamine): 500 ng/mL MTD (Methadone): 200 ng/mL OPI (Opiates): 100 ng/mL OXY (Oxycodone): 100 ng/mL PCP (Phencyclidine): 25 ng/mL THC (Cannabinoids): 50 ng/mL TCA (Trycyclic Antidepressants): 300 ng/mL CANNABINOID SCREEN URINENegativeNEGATIVENOMS HealthcareCOCAINE SCREEN URINE NegativeNEGATIVENOMS HealthcareMETHADONE SCREEN URINENegativeNEGATIVENOMS HealthcareMETHAMPHETAMINES SCREEN URINENegativeNEGATIVENOMS HealthcareOPIATE SCREEN URINENegativeNEGATIVENOMS HealthcareOXYCODONE SCREEN URINENegative NEGATIVENOMS HealthcarePHENCYCLIDINE SCREEN URINENegativeNEGATIVENOMS Healthcare TRICYCLIC ANTIDEPRESSANT URINENegativeNEGATIVENOMS HealthcareCLINISYNCNOMS HealthcareUS OB 14+ WEEKS ANATOMY SCANon 14-16-1289KC OB 14+ WEEKS ANATOMY SCAN TITLE OF [...] electronically signed and approved by the interpreting radiologist.NormalNot AvailableComment on above:Order Comment: US OB ANATOMY SINGLE W US OB CERVICAL LENGTH Estimated Date of Delivery: 01/11/25 Gestational Age as of 08/08/2024: 42t9xOOA,APTIMA HPV,AGE GDLNon 56-93-0810YZI GDLN ACOG TESTINGNote.NOMS HealthcareComment on above:TESTS RESULT FLAG UNITS REF RANGE LAB Clinician Provided Cytology Information Source.............Cervix Other.............. No. of containers..01 ThinPrep Vial Age Algo ACOG Crystal... -29 01 FLAG LEGEND: L-Low Normal,H-High Normal,LL-Alert Low,HH-Alert High <-Panic Low,>-Panic High,A-Abnormal,AA-Critical Abnormal Performed at: 01 =G [address] [address] Melissa García MD, IGP, RFX APTIMA HPV ASCUNote.NOMS HealthcareComment on above:TESTS RESULT FLAG UNITS REF RANGE LAB DIAGNOSIS: 02 NEGATIVE FOR INTRAEPITHELIAL LESION OR MALIGNANCY. THIS SPECIMEN WAS RESCREENED PART OF OUR PRODUCTION SUPPORT DEVELOPER PROGRAM. Specimen adequacy: 02 Satisfactory for evaluation. No endocervical component is identified. An endocervical component is not commonly seen in the patient. Performed by: 02 Emilie Frost, Clamp Forklift Operator (ASC) QC reviewed by: 02 Lauren Ness, Supervisory Clamp Forklift Operator (ASCP) . 02 Note: Note 02 The [...] <-Panic Low,>-Panic High,A-Abnormal,AA-Critical Abnormal Performed at: [address] [address] Melissa García MD, Performed at: =[address] [id number] Tip Banding Machine Operator: Melissa García MD, Phone: [phone] Performed at: [address] [id number] Tip Banding Machine Operator: Melissa García MD, Phone: [phone] SPATULA-ALONE CERVIX CLINISYNCNOMS HealthcareRECURRENT VAGINITIS (HTRX)on 50-29-1986BJBGZHANR VAGINAE 0NOMS HealthcareATOPOBIUM VAGINAENot detectedNOMS HealthcareBVAB 2,3 (BACTERIAL VAGINOSIS ASSOCIATED BACTERIA 2, 3); MOBILUNCUS TAS9HGTC HealthcareBVAB 2,3 (BACTERIAL VAGINOSIS ASSOCIATED BACTERIA 2, 3); MOBILUNCUS SPPNot detectedNOMS HealthcareCANDIDA ALBICANS, PARAPSILOSIS, SEHRABFUFI5VCSN HealthcareCANDIDA ALBICANS, PARAPSILOSIS, TROPICALISNot detectedNOMS HealthcareCANDIDA GLABRATA0 NOMS HealthcareCANDIDA GLABRATANot detectedNOMS HealthcareCANDIDA FYHEKN3GXRN HealthcareCANDIDA KRUSEINot detectedNOMS HealthcareCHLAMYDIA XIHRLLTRHSC2XRPV HealthcareCHLAMYDIA TRACHOMATISNot detectedNOMS HealthcareGARDNERELLA VAGINALIS 29.341AbnormalNOMS HealthcareGARDNERELLA VAGINALISDetectedAbnormalNOMS HealthcareInterpretation and review of laboratory resultsAbnormalNOMS Healthcare MEGASPHAERA (TYPES 1, 2)0NOMS HealthcareMEGASPHAERA (TYPES 1, 2)Not detectedNOMS HealthcareMYCOPLASMA LVKWIMUADC1YFSC HealthcareMYCOPLASMA GENITALIUMNot detectedNOMS HealthcareNEISSERIA JLKCOFPTRWC6EOHL HealthcareNEISSERIA GONORRHOEAENot detectedNOMS HealthcareTRICHOMONAS IGETGOKQC5KCHW Healthcare TRICHOMONAS VAGINALISNot detectedNOMS HealthcareNOMS HealthcareGLUCOSE TOLERANCE 3 HOURon 42-15-2903YDUDWGH TOLERANCE 3 HOURmg/dLNOAR HealthcareComment on above:GLU FAST 83 (<95) Col: 08/10/24 0708 GLU 1HR 131 (<180) Col: 08/10/24 0812 GLU 2HR 124 (<155) Col: 08/10/24 0912 GLU 3HR 95 (<140) Col: 08/10/24 1013 CLINISYNCNOAR HealthcareUrinalysis macro (dipstick) panel (U)on 08-08-2024 Bilirubin, UANegativeNegative - 4(70) +++ mg/dLNOMS HealthcareBlood, UANegative Negative - 50 Osvaldo/mcLNOMS HealthcareClarity, UAClearNOMS HealthcareColor, UA YellowNOMS HealthcareGlucose, UANegativeNegative - 2000(110) ++++ mg/dLNOAR HealthcareInterpretation and review of laboratory resultsNormLehigh Valley Hospital - Muhlenberg Ketones, UANegativeNegative - 160(16) ++++ mg/dLNOAR HealthcareLeukocytes, UA NegativeNegative - 500+++ Edison/mcLNOAR HealthcareNitrite, UANegativeNegative - PositiveNOMS HealthcarepH, UA5.55 - 9NOAR HealthcareProtein, UANegativeNegative - 2000(20) ++++ mg/dLNOAR HealthcareSpec Grav, UA1.021 - 1.03NOMS Healthcare Urobilinogen, UA1.00.2 - 12 mg/dLNOSaint Joseph Hospital WestNOAR HealthcareGLUCOSE 1 HOURon 72-87-8268Lnzumdb [Mass/Vol]132 mg/dLHighNINF - 130 mg/dLNOAR Healthcare Interpretation and review of laboratory resultsAbnormalMOUNTAIN VIEW HOSPITAL HealthcareCLINISYNC NOMS HealthcareCoding Summaryon 44-41-8388Salnxv SummaryHTMLBase 64 KfhtlnecLHu5hAe+PGhlYWQ+JX7UPBYlA19yjQMuuU0oV5ZJDYbZGuntCBRMWZuZEuBxvwFiFF7pgPTg ZXJu [file] Y29 (more content not included)...[facility] HospitalUrinalysis macro (dipstick) panel (U)on 48-71-9621Pqpiwmcvk, UANegativeNegative - 4(70) +++ mg/dL NOMS HealthcareBlood, UANegativeNegative - 50 Osvaldo/mcLNOMS HealthcareClarity, UA ClearNOMS HealthcareColor, UAYellowNOMS HealthcareGlucose, UANegativeNegative - 2000(110) ++++ mg/dLNOMS HealthcareInterpretation and review of laboratory resultsAbnormalNOMS HealthcareKetones, UANegativeNegative - 160(16) ++++ mg/dL NOMS HealthcareLeukocytes, UAPositiveNegative - 500+++ Edison/mcLNOMS Healthcare Comment on above:smallNitrite, UANegativeNegative - PositiveNOMS HealthcarepH, UA75 - 9NOMS HealthcareProtein, UANegativeNegative - 2000(20) ++++ mg/dLNOMS HealthcareSpec Grav, UA1.0251 - 1.03NOMS HealthcareUrobilinogen, UA1.00.2 - 12 mg/dLNOMS HealthcareNOMS HealthcareED Clinical Summaryon [id number] Clinical [facility] ? Urgent Care [address] [place] [address] Clinical Summary PERSON INFORMATION Name: SHERLY ERICKSON Age: 24 Years Sex: FEMALE : 2000 MRN: Acct#: Visit Reason: Vaginal discharge; VAGINAL ITCHING/DISCHARGE Arrival: 07/05/2024 10:15:34 Discharge: 07/05/2024 10:59:00 LOS: 000 00:44 Check In: 07/05/2024 10:15:34 Checkout: 07/05/2024 10:59:00 Address: [address] [place] [address] PCP: Radha Mendoza MD PROVIDER INFORMATION Provider [...] Location: Home PATIENT EDUCATION INFORMATION Instructions: Vaginitis, Jeox-vg-Sfer Follow-Up: With: Address: When: Radha Mendoza [address] [place] [address] Business (1) Within 5 to 7 days With: Address: When: [place] [address] Business (1) Within 1 to 2 days DIAGNOSIS: Vaginitis Patient Understands: Yes - Patient/family/caregiver verbalizes understanding of instructions given Comment:[facility] HospitalED Patient Summary [id number] Patient Summary [facility] ? Urgent Care [address] [place] [address] PATIENT DISCHARGE INSTRUCTIONS Patient Information Name: SHERLY ERICKSON Age: 24 Years Date of : 2000 Reason For Visit: Vaginal discharge; VAGINAL ITCHING/DISCHARGE Arrival Time: 07/05/2024 10:15:34 Primary Care Physician: Radha Mendoza MD Attending Physician: Spenser Fang Comment: Patient Education With: Address: When: Radha Mendoza [address] [place] [address] Business (1) Within 5 to 7 days With: Address: When: COLE ALONSO [address] [place] [address] [employer]Club (1) Within 1 to 2 days Vaginitis [...] and use condoms. General instructions ? Take xrhk-tce-qoupsqz and prescription medicines only as told by your doctor. ? If you were prescribed an antibiotic medicine, take or use it as told by your doctor. Do not stoptaking or using it even if you start to feel better. ? Keep all follow-up visits. How is this prevented? ? Do not use things that can irritate the vagina, such as fabric softeners. Avoid these products ifthey are scented: ? Sprays. ? Detergents. ? [...] provider. Document Revised: 02/19/2021 Document Reviewed: 02/19/2021 [employer] Patient Education ? 2023 [employer] Medication Information: The exam and treatment you received today in the [facility] Emergency Department were for an urgent problem and are not intended as complete care. It is important for you to follow up with a doctor, nurse practitioner, or physician?s hair assistant for ongoing care. If your symptoms become worse or you donot improve as expected and you are unable to reach your usual health care provider, you should return to the Emergency Department, we are available 24 hours a day. For those (more content not included)...[facility] HospitalUrgent Care Note- Provideron 18-94-3357Kvvljj Care Note- ProviderPatient: SHERLY ERICKSON Age: 24 years Sex: FEMALE : 2000 Associated Diagnoses: Vaginitis Author: Rakesh Sawyer PA-C History of Present Illness This is a , 12 weeks female here today with concerns of persisting vaginal itching andirritation for the past 2 weeks. No fevers, [...] release: 500 mg = 1 tab(s), Oral, Daily,0 Refill(s) escitalopram 10 mg oral tablet: 10 mg = 1 tab(s), Oral, Daily, 30 tab(s), 0 Refill(s). Past Medical/ Family/ Social History Medical history: Resolved Ankle fracture, left ([id number]): Resolved. 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 Surgical history: Cholecystectomy (97020312).. Family history: Anxiety Father Sister Diabetes mellitus [...] 1-2 times a month - 12/01/2021 10:44 [place] Home/Environment 10/28/2021 Lives with: Roomate(s)/Friend(s), Significant other [...] Dr. Alonso's office. She recommended Terconazole daily for1 week. I offered to do a vaginal exam with swabs and/or heart tones and NITISH Ballesteros defers these things and patient agrees. They offer to see her in follow-up next week. Return with new, or worsening symptoms, or symptoms failing to improve as expected and the patient voiced their understanding. Questions answered. Follow-up with their family doctor a (more content not included)...[facility] Care Recordon 07-05-2024 Urgent Care [facility] ? Urgent Care [address] [place] [address] PATIENT DISCHARGE INSTRUCTIONS Patient Information Name: SHERLY ERICKSON Age: 24 Years Date of : 2000 Reason For Visit: Vaginal discharge; VAGINAL ITCHING/DISCHARGE Arrival Time: 07/05/2024 10:15:34 Primary Care Physician: Rahda Mendoza MD Attending Physician: Spenser Fang Comment: Visit Diagnosis: Diagnoses This Visit Vaginal discharge ([id number]) Vaginitis (N76.0) If you received any narcotics, [...] documents With: Address: When: Radha Mendoza [address] [place] [address] Business (1) Within 5 to 7 days With: Address: When: COLE ALONSO [address] [place] [id number] Business (1) Within 1 to 2 days Medication Information: The exam and treatment you received today in the [facility] were for an urgent problem and are not intended as complete care. It is important for you to follow up with a doctor, nurse practitioner, or physician?s hair assistant for ongoing care. If your symptoms [...] can reach you if necessary. [facility] has provided you with a complete list of medications post discharge. Please inform your veneer production machine operator/provider of your visit and for further instruction on these medications. Any specific questions regarding your chronic medications and dosages should be discussed with your primary care physician(s) and/or pharmacist. New Medications [facility] [phone] [place], [place] [phone], [phone] terconazole topical (terconazole 0.4% vaginal cream) 1 zoran Vaginal once a day (at bedtime) for 7 Days. Refills: 0. Additional medications on your home medication list not specifically addressed. Please contact the ordering physician if you have questions about these medications. multivitamin, (Multivitamin) 1 tab Oral (given by mouth) every day. nitrofurantoin (nitrofurantoin macrocrystals-monohydrate 100 mg oral capsule) 1 cap(s) Oral [...] (nonoxynol-9). ? Eating food (more content not included)...[facility] HospitalALL CBC WITH AUTO DIFFon 00-97-1167YUVDRAZDU ABSOLUTE AIAJ6RCRD HealthcareBasophils/100 WBC (Bld)0.3 %0.2 - 2.0 %NOMS HealthcareEosinophils/100 WBC (Bld)1.2 %0.9 - 7.0 % NOMReynolds County General Memorial HospitalErythrocyte distribution width (RBC) [Ratio]12.9 %11.0 - 15.0 % NOMS HealthcareHematocrit (Bld) [Volume fraction]40.3 %36.0 - 48.0 %NOMReynolds County General Memorial HospitalHemoglobin (Bld) [Mass/Vol]13.7 g/dL12.0 - 16.0 g/dLNOSaint Joseph Hospital West IMMATURE GRANULOCYTES ABS AUTO0.06HighNOAR HealthcareImmature granulocytes/100 WBC (Bld)0.5 %0.0 - 0.5 %NOM HealthcareInterpretation and review of laboratory resultsAbnormalNOSaint Joseph Hospital WestLYMPHOCYTES ABSOLUTE AUTO2.5NOMS Healthcare Lymphocytes/100 WBC (Bld)21.2 %20.5 - 60.0 %NOMNortheast Regional Medical CenterH (RBC) [Entitic mass]29 pg26.7 - 34.0 pgNOSaint Luke's Health SystemHC (RBC) [Mass/Vol]34 g/dL29.9 - 35.2 g/dLNOAR HealthcareMCV (RBC) [Entitic vol]85.2 fL81.0 - 99.0 fLSaint Mary's Hospital of Blue Springs MONOCYTES ABSOLUTE AUTO0.4NOAR HealthcareMonocytes/100 WBC (Bld)3.3 %1.7 - 12.0 %[facility] HealthcareNEUTROPHILS ABSOLUTE AUTO8.7HighNOAR HealthcareNeutrophils/100 WBC (Bld)73.5 %43.0 - 75.0 %[facility] HealthcarePlatelet mean volume (Bld) [Entitic vol]9.5 fL9.5 - 13.5 fLSaint Mary's Hospital of Blue SpringsTB EO #0.1NOMS Delaware County HospitalTB XCC821GPIXSaint Joseph Hospital WestTB RBC4.73NOSaint Joseph Hospital WestTB WBC11.8HDepartment of Veterans Affairs [facility] Memorial VA HospitalCLINISYNCNBROOKHAVEN HOSPITAL [facility] HealthcareOutside Recordson 58-27-8791Bkijsag Records [id number]#1.00[facility] Coding Summaryon 68-94-7464Dktykf SummaryHTMLBase 64 ObtsssgmIEw9eFr+PGhlYWQ+MZ9AVLNmB64deJNxxP6hZ0QNCBjWAdauZDTBWRqIIoCkmwNqBV2yvGLc ZXJu [file] Ym9 (more content not included)...[facility] HospitalHCG ( test) Ql (U)on 31-14-1668Omazeoxeuaqtcn and review of laboratory resultsAbnormalNOMS HealthcarePreg Test, UrPositiveNOMS HealthcareNOAR HealthcareUS OB TRANSVAGINAL on 44-22-9002[place], [place] [address] Ultrasound Report Signed Patient: Sherly Erickson MR#: [id number] : 2000 Acct:[id number] Age/Sex: 24 / F ADM Date: 06/07/24 Loc: NOMS Attending Dr: Cole Alonso D.O. Ordering Physician: Cole Alonso D.O. Date of Service: 06/07/24 Procedure(s): US OB transvaginal Accession Number(s): [id number] cc: RADHA MENDOZA ; Cole Alonso D.O. The [address] [address] Patient Name: SHERLY ERICKSON MRN: [facility]:[id number] date: 2000 Sex: F Assigned Patient Location: [facility] Current Patient Location: [facility] Accession/Order Number: [id number] Exam Date: 06/07/2024 12:40 Report Date: 06/07/2024 15:30 At the request of: COLE ALONSO Procedure: US OB transvaginal EXAMINATION: US OB transvaginal HISTORY: MISSED MENSES COMPARISON: No relevant comparison available. FINDINGS: Transvaginal imaging Smith intrauterine gestation Gestational sac: 2.56 cm, 7 weeks 2 days CRL: 1.70 cm, 8 weeks 1 day Yolk sac: 4.3 mm Heart rate: 160 beats minute Cervix: Closed, 4.66 cm The uterus is normal, retroverted, retroflexed The right ovary is normal measuring 3.2 x 2.6 x 1.5 cm. Left ovary is not visualized Clinical age: 8 weeks 6 days Clinical MIKE: 01/07/2025 Ultrasound age: 8 weeks 1 day Ultrasound MIKE: 01/16/2025 US/US OB transvaginal IMPRESSION: Viable smith intrauterine gestation measuring 8 weeks 1 day Electronically authenticated by: RADHA KIM Date: 06/07/2024 15:30 Dictated By: Radha Kim M.D. Signed By: 06/07/24 1533 DD/ 1530 TD/TT: Regulatory Lead:APURVAadiology, Radiologist, - 06/07/[address] [address] Ultrasound Report Signed Patient: Sherly Erickson MR#: [id number] : 2000 Acct:[id number] Age/Sex: 24 / F ADM Date: 06/07/24 Loc: NOMS Attending Dr: Cole Alonso D.O. Ordering Physician: Cole Alonso D.O. Date of Service: 06/07/24 Procedure(s): US OB transvaginal Accession Number(s): [id number] cc: RADHA MENDOZA ; Cole Alonso D.O. [address] [address] Patient Name: SHERLY ERICKSON MRN: [facility]:[id number] date: 2000 Sex: F Assigned Patient Location: [facility] Current Patient Location: [facility] Accession/Order Number: [id number] Exam Date: 06/07/2024 12:40 Report Date: 06/07/2024 15:30 At the request of: COLE ALONSO Procedure: US OB transvaginal EXAMINATION: US OB transvaginal HISTORY: MISSED MENSES COMPARISON: No relevant comparison available. FINDINGS: Transvaginal imaging Smith intrauterine gestation Gestational sac: 2.56 cm, 7 weeks 2 days CRL: 1.70 cm, 8 weeks 1 day Yolk sac: 4.3 mm Heart rate: 160 beats minute Cervix: Closed, 4.66 cm The uterus is normal, retroverted, retroflexed The right ovary is normal measuring 3.2 x 2.6 x 1.5 cm. Left ovary is not visualized Clinical age: 8 weeks 6 days Clinical MIKE: 01/07/2025 Ultrasound age: 8 weeks 1 day Ultrasound MIKE: 01/16/2025 US/US OB transvaginal IMPRESSION: Viable smith intrauterine gestation measuring 8 weeks 1 day Electronically authenticated by: RADHA KIM Date: 06/07/2024 15:30 Dictated By: Radha Kim M.D. Signed By: 06/07/24 1533 DD/ 153 TD/TT: Regulatory Lead: [facility] HealthcareRadiology Study observation (narrative)[facility] HealthcareUS OB TRANSVAGINALOrdered By: Radiologist Radiology on 13-06-0363[facility] Work Phone: Urinalysis macro (dipstick) panel (U)on 06-07-2024 Bilirubin, UANegativeNegative - 4(70) +++ mg/dLNOMS HealthcareBlood, UANegative Negative - 50 Osvaldo/mcLNOAR HealthcareClarity, UAClearNOMS HealthcareColor, UA YellowNOMS HealthcareGlucose, UANegativeNegative - 1999(110) ++++ mg/dLNOAR HealthcareInterpretation and review of laboratory resultsAbnormalNOAR Healthcare Ketones, UANegativeNegative - 160(16) ++++ mg/dLNOMS HealthcareLeukocytes, UA TraceNegative - 500+++ Edison/mcLNOAR HealthcareNitrite, UANegativeNegative - PositiveNOMS HealthcarepH, UA7.55 - 9NOAR HealthcareProtein, UANegativeNegative - 2000(20) ++++ mg/dLNOAR HealthcareSpec Grav, UA1.0201 - 1.03NO[facility] Healthcare Urobilinogen, UA0.20.2 - 12 mg/dLNOMS HealthcareNOAR HealthcareCoding Summaryon 60-41-5745Ztbdgb SummaryHTMLBase 64 ScfnzgnvLNg4fKi+PGhlYWQ+NQ6SHCLlT06giOSycH5uL3BJKPwQZgqhKMFHRUwALpIiztJrKY8lpTDn ZXJu [file] Y29 (more content not included)...[facility] HospitalOffice/Clinic Noteon 45-61-0741Vncwee/Clinic NotePatient: SHERLY ERICKSON Age: 24 years Sex: FEMALE [...] release: 500 mg = 1 tab(s), Oral, Daily,0 Refill(s) escitalopram 10 mg oral tablet: 10 [...] 113.040 kg Body Mass Index 39.11 kg/m2 Soper Body Weight Calculated 61.437 kg BSA Measured 2.31 m2 General: Alert and oriented, No acute distress. Musculoskeletal: Positive point tenderness over the left gluteal region as compared to the right. Positive straight leg raise. Positive piriformis muscle sign with external rotation of the hip with adduction towards the opposite shoulder.. Impression and Plan Diagnosis Sciatica of left side (LHY32-TU M54.32). Plan: Discussed with patient stretches she can do to help with her sciatica. They were demonstratedin the office. Will hold off on any steroids.. Orders Orders Evaluation and Management: 01235 Office visit - established pt, Level 3 (Order): 06/01/2024 13:28 EDT, Qty: 1, Sciatica of leftside. [Electronically Signed on: 06/01/2024 13:56 EDT] Radha Mendoza MD [Verified on: 06/01/2024 13:56 EDT] Radha Mendoza MD [facility].Auto Diff 1on 42-48-0571Stzf [place] %5 % Normal1-12[facility] HospitalComment on above:Performed By: #### [id number], 9755191, 42556521, [id number] #### [facility] (DEFAULT) [address] [place] [address] 43301Qwpb Abs#0.1 b02Mhetma5.0-0.2[facility] HospitalComment on above:Performed By: #### [id number], 5137098, 57119127, [id number] #### [facility] (DEFAULT) [address] [place] [address] 52027Uibcdgjxg/100 WBC (Bld)0.6 %Normal0.2-2.0[facility] Comment on above:Performed By: #### 3740184, 6560299, 00719683, [id number] #### [facility] (DEFAULT) [address] [place] [address] 49532Nfk Abs#0.3 u92Iboods0.0-0.4[facility] HospitalComment on above:Performed By: #### 3568738, 0479271, 31443962, [id number] #### [facility] (DEFAULT) [address] [place] [address] 88570Ggewnyemadb/100 WBC (Bld)2.5 %Normal0.9-4.0[facility] HospitalComment on above:Performed By: #### 2462825, 8585565, 68085302, [id number] #### [facility] (DEFAULT) [address] [place] [address] 93516Vfvqr Abs#3.6 n68Huxi3.3-2.9[facility] HospitalComment on above:Performed By: #### 8342793, 0774269, 31238901, [id number] #### [facility] (DEFAULT) [address] [place] [address] 90926Opwyvfxfrxs/100 WBC (Bld)27 %Yesbym12-97Amxcfdba Hospital Comment on above:Performed By: #### 4530502, 3593126, 60322842, [id number] #### [facility] (DEFAULT) [address] [place] [address] 44087Tjqx Abs#0.7 l68Klqgpt6.0-0.8[facility] HospitalComment on above:Performed By: #### 4575851, 4922595, 67771264, [id number] #### [facility] (DEFAULT) [address] [place] [address] 52808Silh Abs#8.4 y05Kcpile5.5-9.2[facility] HospitalComment on above:Performed By: #### 3441467, 5968880, 10599073, [id number] #### [facility] (DEFAULT) [address] [place] [address] 90904Vftqudakjsn/100 WBC (Bld)64 %Pqtnor07-15Fdpqhtid Hospital Comment on above:Performed By: #### 8772118, 8472674, 28716535, [id number] #### [facility] (DEFAULT) [address] [place] [address] 82229VTY w/ Auto Diffon 21-70-5322Uhj Diff?AutoInvalid Interpretation CodeMercy Health Tiffin HospitalComment on above:Performed By: #### 8382255, 6146446, 55343193, [id number] #### [facility] (DEFAULT) [address] [place] [address] 75991Luouewyluem distribution width (RBC) [Ratio]13.6 %Normal 11.5-15.0[facility] HospitalComment on above:Performed By: #### 5147988, 7345037, 80145461, [id number] #### [facility] (DEFAULT) [address] [place] [address] 95345Wfnzakyabv (Bld) [Volume fraction]42.0 %High33.7-40.[address] [facility] HospitalComment on above:Performed By: #### 1193755, 1012499, 65440587, [id number] #### [facility] (DEFAULT) [address] [place] [address] 69793Kneiqktzya (Bld) [Mass/Vol]13.8 g/iZPspbmc98.3-15.9 [facility] HospitalComment on above:Performed By: #### 2499392, 6005240, 73659333, [id number] #### [facility] (DEFAULT) [address] [place] [address] 93222JNE (RBC) [Entitic mass]28 ocAmlkfb67-30Kbjqzxpw Hospital Comment on above:Performed By: #### 8667742, 6632831, 27879506, [id number] #### [facility] (DEFAULT) [address] [place] [address] 99119UDUX (RBC) [Mass/Vol]33 g/vUVxapup84-77Ecfserwx Hospital Comment on above:Performed By: #### 0010416, 5690844, 96106216, [id number] #### [facility] (DEFAULT) [address] [place] [address] 37987TOM (RBC) [Entitic vol]86 lEGowyfh89-322Iswvjyyi Hospital Comment on above:Performed By: #### 4079978, 5281882, 90573245, [id number] #### [facility] (DEFAULT) [address] [place] [address] 97754Sdugrhck145 a94Qsaxrl775-473Xnlpmxaq HospitalComment on above:Performed By: #### 1079069, 6015073, 81924181, [id number] #### [facility] (DEFAULT) [address] [place] [address] 13846Kdjpyxoq mean volume (Bld) [Entitic vol]7.8 fLNormal 6.3-10.2[facility] HospitalComment on above:Performed By: #### 5979533, 5267828, 39830142, [id number] #### [facility] (DEFAULT) [address] [place] [address] 67270VNL5.90 y49Qwzkoj6.70-5.30[facility] HospitalComment on above:Performed By: #### 0910455, 6228645, 58301262, [id number] #### [facility] (DEFAULT) [address] [place] [address] 08535LTM24.1 b96Wupa0.5-10.5[facility] HospitalComment on above: Performed By: #### 1789642, 9181303, 30570119, [id number] #### [facility] (DEFAULT) [address] [place] [address] 22706KPJ Standardon 71-35-1630cRBY Non AA>60Invalid Interpretation [facility] HospitalComment on above:Performed By: #### 0051042, 7829822, 42660864, [id number] #### [facility] (DEFAULT) [address] [place] [address] 60509iVLR AA>60Invalid Interpretation [facility] Comment on above:Performed By: #### 7045154, 6465246, 43207915, [id number] #### [facility] (DEFAULT) [address] [place] [address] 98338Pbmiurs [Mass/Vol]4.4 g/dLNormal3.5-5.0[facility] Comment on above:Performed By: #### 0502017, 5106940, 37082806, [id number] #### [facility] (DEFAULT) [address] [place] [address] 45201Xtkssej/Globulin [Mass ratio]1.2 {ratio}Low1.4-2.6MUniversity Hospitals Beachwood Medical CenterComment on above:Performed By: #### 3751802, 4972828, 62205045, [id number] #### [facility] (DEFAULT) [address] [place] [address] 04201Kql Phos46 IU/KRyisww67-91Yvyghufw HospitalComment on above:Performed By: #### 6598459, 3887030, 44945119, [id number] #### [facility] (DEFAULT) [address] [place] [address] 69048OOP [Catalytic activity/Vol]29.0 U/VLnukog05.0-54.[address] [facility] HospitalComment on above:Performed By: #### 2893106, 4174282, 24985330, 5193959557 #### [facility] (DEFAULT) [address] [place] [address] 02427Mbslb gap [Moles/Vol]11.4 mmol/LNormal5.0-19.0[facility] HospitalComment on above:Performed By: #### 1456859, 2188365, 49823648, 3630810913 #### [facility] (DEFAULT) [address] [place] [address] 85993LCL [Catalytic activity/Vol]30 U/PEwyzvq07-69Cvsaofhd HospitalComment on above:Performed By: #### 4878386, 2111190, 88503563, 9455225087 #### [facility] (DEFAULT) [address] [place] [address] 24840Acfa Total0.4 mg/dLNormal0.3-1.2[facility] HospitalComment on above:Performed By: #### 5304600, 7688708, 87698033, [id number] #### [facility] (DEFAULT) [address] [place] [address] 48792Wqzdxqh [Mass/Vol]8.9 mg/dLNormal8.9-10.3[facility] Hospital Comment on above:Performed By: #### 2531352, 3590166, 28547501, [id number] #### [facility] (DEFAULT) [address] [place] [address] 85393Mulbxpvu [Moles/Vol]104 mmol/OSwglan261-640Iyvmyivo HospitalComment on above:Performed By: #### 8500202, 8017256, 89434928, 1693679694 #### [facility] (DEFAULT) [address] [place] [address] 93718DV4 [Moles/Vol]20 mmol/FKvk02-73Fuwqhdsv HospitalComment on above:Performed By: #### 9783997, 9402389, 12414064, 5802218073 #### [facility] (DEFAULT) [address] [place] [address] 32141Iriojxodlq [Mass/Vol]0.66 mg/dLNormal0.60-1.30[facility] HospitalComment on above:Performed By: #### 6720947, 7602922, 36747414, 0007411042 #### [facility] (DEFAULT) [address] [place] [address] 51199Xsfclsfx (S) [Mass/Vol]3.5 g/dLNormal1.5-4.3[facility] HospitalComment on above:Performed By: #### 8801341, 9146683, 69064131, 4949371538 #### [facility] (DEFAULT) [address] [place] [address] 40498Rhusfiq [Mass/Vol]100.0 mg/oYGthmgg00.0-118.0[facility] HospitalComment on above:Performed By: #### 9809395, 3565659, 26767911, [id number] #### [facility] (DEFAULT) [address] [place] [address] 17988Vfeggmsjyk907 mOsm/LInvalid Interpretation CodeMount St. Mary Hospital HospitalComment on above:Performed By: #### 7471884, 9441619, 04431838, [id number] #### [facility] (DEFAULT) [address] [place] [address] 38473Gescwcmxo [Moles/Vol]3.4 mmol/LLow3.6-5.1MUniversity Hospitals Beachwood Medical Center Comment on above:Performed By: #### 4025811, 5917028, 62741184, 9847701912 #### [facility] (DEFAULT) [address] [place] [address] 82284Asbxvhq [Mass/Vol]7.9 g/dLNormal6.5-8.1[facility] Hospital Comment on above:Performed By: #### 3205457, 9892529, 87398879, [id number] #### [facility] (DEFAULT) [address] [place] [address] 38283Ncgofl [Moles/Vol]132.0 mmol/ZMso745.0-144.0[facility] HospitalComment on above:Performed By: #### 7403112, 9651920, 20719403, 3409877166 #### [facility] (DEFAULT) [address] [place] [address] 63773Vmjy nitrogen [Mass/Vol]9 mg/dLNormal8-26[facility] Comment on above:Performed By: #### 4495034, 9254645, 95628961, [id number] #### [facility] (DEFAULT) [address] [place] [address] 34116Ekiy nitrogen/Creatinine [Mass ratio]13.6 mg/mgNormal 4.6-16.2MUniversity Hospitals Beachwood Medical CenterComment on above:Performed By: #### 8558720, 3357953, 81477310, 2473891349 #### [facility] (DEFAULT) [address] [place] [address] 02144OQ Clinical Summaryon 06-01-2366XX Clinical Summary [facility] Emergency Department [address] [place] [address] ED Clinical Summary PERSON INFORMATION Name: SHERLY ERICKSON Age: 24 Years Sex: FEMALE : 2000 MRN: Acct#: Visit Reason: Back pain; Abdominal pain - ; ABD PAIN LT SIDE, LT LEG NUMB Arrival: 05/28/2024 14:14:57 Discharge: 05/28/2024 17:55:00 LOS: 000 03:41 Check In: 05/28/2024 14:14:57 Checkout:05/28/2024 17:55:00 Address: [address] [place], [place] [id number] PCP: Radha Mendoza MD PROVIDER INFORMATION Provider Role Assigned Unassigned Evonne Cheung PA-C ED PA 05/28/2024 14:19:07 Daisy Freire HIGH WORKER Nurse 05/28/2024 14:26:14 VITALS INFORMATION Vital Sign [...] Home PATIENT EDUCATION INFORMATION Instructions: Muscle Strain, Fgli-hc-Qxtz; Sciatica, Qrit-gf-Azxc; Back Exercises, Qmjw-ag-Stjx Follow-Up: With: Address: When: Radha Mendoza MD [address] [place] [address] [id number] Within 3 to 5 days DIAGNOSIS: 1:6 weeks gestation of ; 2:Low back pain with left-sided sciatica; 3:Pain in the side Patient Understands: Yes - Patient/family/caregiver verbalizes understanding of instructions given Comment:[facility] [address] [place] [address] Clinical Summary PERSON INFORMATION Name: SHERLY ERICKSON Age: 24 Years Sex: FEMALE : 2000 MRN: Acct#: Visit Reason: UC - Abdominal Pain; LT SIDE PAIN, LEG PAIN Arrival: 05/28/2024 14:07:02 Discharge: 05/28/2024 14:10:00 LOS: 000 00:03 Check In: 05/28/2024 14:07:02 Checkout: 05/28/2024 14:10:00 Address: [address] [place] [address] PCP: Radha Mendoza MD PROVIDER INFORMATION Provider [...] Acute left flank pain; Currently Patient Understands: Comment:[facility] Note-Nursingon 52-72-9541ZF Note-NursingWriter at bedside while US was performed. pt tolerated well oal [facility] HospitalED Note-NursingPt ambulatory back to ED RM 6 C/O left leg pain, [...] muscle/ nerve pain, cause i have numbness andtingling in my feet Pt denies any falls or injuries. Pt is A/Ox4 call light within reach [facility]ED Patient Summaryon 75-99-8473KG Patient SummaryMer[facility] - Emergency Department [address] [place] [address] PATIENT DISCHARGE INSTRUCTIONS Patient Information Name: SHERLY ERICKSON Age: 24 Years Date of : 2000 Reason For Visit: Back pain; Abdominal pain - ; ABD PAIN LT SIDE, LT LEG NUMB Arrival Time: 05/28/2024 14:14:57 Primary Care Physician: Jason MCNEAL, Radha Santo Attending Physician: Pam Gao MD Comment: Visit Diagnosis: Diagnoses This Visit 6 weeks gestation of (Z3A.01) Abdominal pain - ([id number]) Back pain ([id number]) Low back pain with left-sided sciatica (M54.42) Pain in the side (R10.9) The Pharmacy at [facility] is open Tuesday through Tuesday from 9A to 6P and Tuesday and Tuesday from 9A to 5P Prescription Information: If you have been given a prescription for narcotics, seek immediate medical attention if you have any difficulty breathing or any sudden status changes such as confusion andsleepiness. If you or anyone you know is experiencing suicidal thoughts, mental health, alcohol and/or drug addiction problems; contact the [facility] 28/03 Crisis Hotline -Text 4HOPE to 064563. If you received any narcotics, sedation, or [...] With: Address: When: Jason MCNEAL, Radha Santo [address] [place] [address] Within 3 to 5 days Medication Information: The exam and treatment you received today in the [facility] Emergency Department were for an urgent problem and are not intended as complete care. It is important for you to follow up with a doctor, nurse practitioner, or physician?s hair assistant for ongoing care. If your symptoms become worse or you donot improve as expected and you are unable [...] can reach you if necessary. [facility] has provided you with a complete list of medications post discharge. Please inform your veneer production machine operator/provider of your visit and for further [...] oral tablet, extended release) 1 tab(s) Oral (givenby mouth) every day. Visit Information Allergies: Substance [...] far. This can happen (more content not included)...[facility] [address] [place] [address] PATIENT DISCHARGE INSTRUCTIONS Patient Information Name: SHERLY ERICKSON Age: 24 Years Date of : 2000 Reason For Visit: UC - Abdominal Pain; LT SIDE PAIN, LEG PAIN Arrival Time: 05/28/2024 14:07:02 Primary Care Physician: Radha Mendoza MD Attending Physician: Spenser Fang Comment: Patient Education Medication Information: The exam and treatment you received today in the [facility] Emergency Department were for an urgent problem and are not intended as complete care. It is important for you to follow up with a doctor, nurse practitioner, or physician?s hair assistant for ongoing care. If your symptoms become worse or you donot improve as expected and you are unable [...] can reach you if necessary. [facility] Emergency Department has provided you with a complete list of medications post discharge. Please inform your veneer production machine operator/provider of your visit and for further [...] oral tablet, extended release) 1 tab(s) Oral (givenby mouth) every day. Visit Information Visit Diagnosis: Diagnoses This Visit Abdominal pain, acute, left upper quadrant (R10.12) Acute left flank pain (R10.9) Currently (Z34.90) UC - Abdominal Pain ([id number]) If you received any narcotics, sedation, or [...] Centers for Disease Control and Prevention May 2014[facility] Lactic Acidon 74-22-6060Tqswft Acid9.1 mg/dLNoselect specialty hospital - [facility]4.5-19.8[facility] Comment on above:Performed By: #### [id number] #### [facility] (DEFAULT) [address] [place] [address] 98188MD Ecuoa7gr 15-89-9907HR BacteriaTraceNoChillicothe HospitalComment on above:Order Comment: Urinalysis Microscopic order added on by For [employer] Expert Rules system.Performed By: #### [id number], [id number] ####[facility] (DEFAULT)[address] [place] [address] 09625EW RBCNone SeenNoSamaritan HospitalComment on above:Order Comment: Urinalysis Microscopic order added on by [employer] Expert Rules system.Performed By: #### [id number], [id number] ####[facility] (DEFAULT)[address] [place] [address] 76923EJ Squam EpiModerateNoChillicothe HospitalComment on above:Order Comment: Urinalysis Microscopic order added on by [employer] Expert Rules system.Performed By: #### [id number], [id number] ####[facility] (DEFAULT)[address] [place] [address] 30155KG WBC0-2NormalMercy Health Tiffin HospitalComment on above:Order Comment: Urinalysis Microscopic order added on by For [employer] Expert Rules system.Performed By: #### [id number], [id number] ####[facility] (DEFAULT)[address] [place] [address] 76790SS w Culture if Ind Standardon 09-61-5472Wzflklhqly UANormalMagruder HospitalComment on above:Performed By: #### [id number], [id number] ####[facility] (DEFAULT)[address] [place] [address] 13876Maypb (U)StrawNormalMagruder HospitalComment on above:Performed By: #### [id number], [id number] ####[facility] (DEFAULT)[address] [place] [address] 76067Yrsncbm?Not IndicatedInvalid Interpretation CodeMagruder HospitalComment on above:Result Comment: Result created by rule GL_MAGR_ADD_UA_CULT Result created by rule GL_MAGR_ADD_UA_CULTPerformed By: #### [id number], [id number] ####[facility] (DEFAULT)[address] [place] [address] 86282Dgdoekl (U) [Mass/Vol]NegativeNormalMagruder HospitalComment on above:Performed By: #### [id number], [id number] ####[facility] (DEFAULT)[address] [place] [address] 64145Svtximf Ql (U)NegativeNormal Dea HospitalComment on above:Performed By: #### 56450869, [id number] ####[facility] (DEFAULT)[address] [place] [address] 71363Wvfto? IndicatedInvalid Interpretation CodeMagruder HospitalComment on above:Result Comment: Result created by rule GL_MAGR_ADD_UA_MICROPerformed By: #### [id number], [id number] ####[facility] (DEFAULT)[address] [place] [address] 40626MW BilirubinNegativeNormalMagruder HospitalComment on above:Performed By: #### [id number], [id number] ####[facility] (DEFAULT)[address] [place] [address] 71230PY BloodNegativeNormalNEGATIVEMagruder HospitalComment on above:Performed By: #### [id number], [id number] ####[facility] (DEFAULT)[address] [place] [address] 15551KJ ClaritySL CLOUDYAbnormalCLEARMadunlap memorial hospital HospitalComment on above:Performed By: #### [id number], [id number] ####[facility] (DEFAULT)[address] [place] [address] 14760OV Leuk EstSMALL AbnormalNEGATIVEMount St. Mary Hospital HospitalComment on above:Performed By: #### [id number], [id number] ####[facility] (DEFAULT)[address] [place] [address] 66101B[address] [facility] Hospital HospitalComment on above:Performed By: #### [id number], [id number] ####[facility] (DEFAULT)[address] [place] [address] 54196RH pH6.7Icydon5-2Ctcvqhma HospitalComment on above: Performed By: #### [id number], [id number] ####[facility] (DEFAULT)[address] [place] [address] 14838FA [address] Mary Hospital HospitalComment on above:Performed By: #### [id number], [id number] ####[facility] (DEFAULT)[address] [place] [address] 76803SD Spec Grav1.010Normal 1.001-1.035[facility] HospitalComment on above:Performed By: #### [id number], [id number] ####[facility] (DEFAULT)[address] [place] [address] 96921TR Urobilinogen0.2 mg/dLNormal0.2-1.0[facility] HospitalComment on above: Performed By: #### [id number], [id number] ####[facility] (DEFAULT)[address] [place] [address] 46191Abnyc SourceClean Catch[address]Mount [address]. Mary Hospital HospitalComment on above:Performed By: #### [id number], [id number] ####[facility] (DEFAULT)[address] [place] [address] 98532JG 1st Trimesteron 54-34-2611FE 1st TrimesterEXAM: US 1st Trimester HISTORY: ectopic COMPARISON: None. [...] Yeh MD 05/28/24 7:34 pm Technologist: [facility] CenterUS Transvaginalon 12-00-9645VX TransvaginalEXAM: US 1st Trimester HISTORY: ectopic COMPARISON: None. [...] DT/TM: 05/28/24 7:23 Signed (Electronic Signature): Radha eYh MD 05/28/24 7:34 pm Technologist: [facility] CenterUr[facility] Care Note- Provideron 09-23-2024 Urgent Care Note- ProviderPatient: SHERLY ERICKSON Age: 24 years Sex: FEMALE [...] release: 500 mg = 1 tab(s), Oral, Daily,0 Refill(s) escitalopram 10 mg oral tablet: 10 mg = 1 tab(s), Oral, Daily, 30 tab(s), 0 Refill(s). Past Medical/ Family/ Social History Medical history: Resolved Ankle fracture, left ([id number]): Resolved. 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 Surgical history: Cholecystectomy ([id number]).. Family history: Anxiety Father Sister Diabetes mellitus [...] Diagnosis Abdominal pain, acute, left upper quadrant (QWN09-WA R10.12, Discharge, Medical) Acute left flank pain (URC35-NW R10.9, Discharge, Medical) Currently (XCA08-CT Z34.90, Discharge, Medical) Plan Condition: Stable, Guarded. [...] [Verified on: 05/28/2024 14:16 EDT] Spenser Fang NNormalMercy Health Tiffin HospitalhCG Quantitativeon 06-78-3706iXY Tfecqxsjwgdt31572.0 mIU/mLHigh0.0-0.6[facility] HospitalComment on above:Result Comment: Post-Menopausal Reference Range is: 0.1-11.6 mIU/mLPerformed By: #### [id number], [id number], [id number], [id number] ####[facility] (DEFAULT)[address] [place], [place] [address]JCC ( test) Ql (U)on 05-08-2024 Interpretation and review of laboratory resultsAbnormalNOMS HealthcarePreg Test, UrPositiveNOSaint Joseph Hospital WestNOAR HealthcareProgress Noteson 20-38-8975Cicvaswjrzpla Authentication Interface Message Text Attestation signed by [...] OMFS PATIENT VISIT CHIEF COMPLAINT: Toothache and [place] Teeth HISTORY OF PRESENT ILLNESS: 24-year-old female [...] canal DIAGNOSIS: Abnormal tooth eruption (Primary Diagnosis) [029039] Impacted third molar tooth [961180] Caries, Impacted wisdom teeth, and Retained dental root ASSESSMENT: #1 Caries #16 Caries #17 and #32, Partial bony Impaction with pericoronitis PLAN: Surgical extractions #'s 17, 32, Extractions #'s 1, 16, and with local anesthesia Nancy Lee DMD, [facility] SendMeHome.comTranscription Authentication Interface Message TextAmsterdam Memorial Hospital SystemCoding Summaryon 03-28-2024 Coding SummaryMLBase 64 KloxckcgXZv0zEh+PGhlYWQ+TV3TEQWnT65fqEWohI9kY5ZKAMdUWvfcHNPOLUxUYnIdhlDcOM2bnZGn ZXJu [file] Y29 (more content not included)...[facility] LCon 30-77-8674Hyvzapkzsvvi LC1.4 ng/mLInvalid Interpretation [facility] Comment on above:Result Comment: Follicular phase 0.1 - 0.9 Luteal phase 1.8 - 23.9 Ovulation phase 0.1 - 12.0 First trimester 11.0 - 44.3 Second trimester 25.4 - 83.3 Third trimester 58.7 - 214.0 Postmenopausal 0.0 - 0.1 Performed At: [address] [id number] Sarah Beal PhD Ph:[phone] By: #### [id number] ####[facility] (DEFAULT)[address] [id number] [place] 86-42-3950Guxsezfn [id number]#1.00OTGTIFF [facility] HospitalCoding Summaryon 77-25-3761Pscisp SummaryHTMLBase 64 YxwifyvgYUc6vPn+PGhlYWQ+OW6GKIMgD31dlHNxtY9uJ4XGDIgTLtpoARQVEYcMRkDxscScWP6bsBVw ZXJu [file] Y29 (more content not included)...[facility] HospitalProgesterone LCon 85-32-5217Iukrontzybmk LC18.8 ng/mLInvalid Interpretation [facility] Comment on above:Result Comment: Follicular phase 0.1 - 0.9 Luteal phase 1.8 - 23.9 Ovulation phase 0.1 - 12.0 First trimester 11.0 - 44.3 Second trimester 25.4 - 83.3 Third trimester 58.7 - 214.0 Postmenopausal 0.0 - 0.1 Performed At: [facility] [address] [place] [id number] Sarah Beal PhD Ph:[phone] By: #### [id number] #### [facility] (DEFAULT) [address] [place], [place] [address]Oqmipwzd [place] 85-01-5966Odisgydp Orders [id number]#1.00[facility] Coding Summaryon 61-65-1330Cfozkm SummaryHTMLBase 64 ElmhiefmUZt2sSp+PGhlYWQ+WJ0NLVSfL57ldAJxvZ2wB0WAVQtIYucxYFZLLLdCXnXiamSrAP3gvWVo ZXJu [file] Y29 (more content not included)...[facility] HospitalProgesterone LCon 35-96-8379Qtjbyperngfg LC14.5 ng/mLInvalid Interpretation [facility] Comment on above:Result Comment: Follicular phase 0.1 - 0.9 Luteal phase 1.8 - 23.9 Ovulation phase 0.1 - 12.0 First trimester 11.0 - 44.3 Second trimester 25.4 - 83.3 Third trimester 58.7 - 214.0 Postmenopausal 0.0 - 0.1 Performed At: [facility] [id number] Sarah Beal PhD Ph:[phone] By: #### [id number] #### [facility] ([facility]) [address] [place] [address]Fxeelexc [place] 32-83-9613Wlyxgppx Orders [id number]#1.00OTGTIFFUC West Chester HospitalUS PELVIS W/ TRANSVAGINALon 29-25-2157Knr[address] [address] Ultrasound Report Signed Patient: Sherly Erickson MR#: [id number] : 2000 Acct:[id number] Age/Sex: 23 / F ADM Date: 10/17/23 Loc: [facility] Attending Dr: Cole Alonso D.O. Ordering Physician: Cole Alonso D.O. Date of Service: 10/17/23 Procedure(s): US pelvis w/ transvaginal Accession Number(s): [id number] cc: RADHA MENDOZA ; Cole Alonso D.O. The [address] [id number] Patient Name: SHERLY ERICKSON MRN: [id number] date: 2000 Sex: F Assigned Patient Location: [facility] Current Patient Location: [facility] Accession/Order Number: [id number] Exam Date: 10/17/2023 08:27 Report Date: 10/17/2023 13:14 At the request of: COLE ALONSO Procedure: US pelvis w/ transvaginal EXAM: US pelvis w/ transvaginal HISTORY: PCOS COMPARISON: CT abdomen and pelvis 09/13/2020. TECHNIQUE: Real-time transabdominal and transvaginal imaging of the pelvis. Findings: The uterus measures 9.0 x 4.2 x 6.0 cm. The uterus is retroverted. No intrauterine mass. The endometrium is 0.8 cm thick. No fluid within the endometrial canal. Nabothian cysts. The right and left ovaries measure 3.5 x 2.4 x 3.6 and 3.9 x 2.4 x 2.0 cm. There are unremarkable bilaterally with blood flow is identified. No adnexal mass or free pelvic fluid. Pressure 1. Unremarkable sonographic appearance of the pelvis. Electronically authenticated by: MICHELLE MAE Date: 10/17/2023 13:14 Dictated By: Michelle Mae M.D. Signed By: 10/17/23 1317 DD/ 1314 TD/TT: Regulatory Lead:TBHRadiology, Radiologist, MD - 10/17/[address] [address] Ultrasound Report Signed Patient: Sherly Erickson MR#: [id number] : 2000 Acct:[id number] Age/Sex: 23 / F ADM Date: 10/17/23 Loc: [facility] Attending Dr: Cole Alonso D.O. Ordering Physician: Cole Alonso D.O. Date of Service: 10/17/23 Procedure(s): US pelvis w/ transvaginal Accession Number(s): [id number] cc: RADHA MENDOZA ; Cole Alonso D.O. The [place] [id number] Patient Name: SHERLY ERICKSON MRN: [id number] date: 2000 Sex: F Assigned Patient Location: [facility] Current Patient Location: [facility] Accession/Order Number: [id number] Exam Date: 10/17/2023 08:27 Report Date: 10/17/2023 13:14 At the request of: COLE ALONSO Procedure: US pelvis w/ transvaginal EXAM: US pelvis w/ transvaginal HISTORY: PCOS COMPARISON: CT abdomen and pelvis 09/13/2020. TECHNIQUE: Real-time transabdominal and transvaginal imaging of the pelvis. Findings: The uterus measures 9.0 x 4.2 x 6.0 cm. The uterus is retroverted. No intrauterine mass. The endometrium is 0.8 cm thick. No fluid within the endometrial canal. Nabothian cysts. The right and left ovaries measure 3.5 x 2.4 x 3.6 and 3.9 x 2.4 x 2.0 cm. There are unremarkable bilaterally with blood flow is identified. No adnexal mass or free pelvic fluid. Pressure 1. Unremarkable sonographic appearance of the pelvis. Electronically authenticated by: MICHELLE MAE Date: 10/17/2023 13:14 Dictated By: Michelle Mae M.D. Signed By: 10/17/23 1317 DD/ 1314 TD/TT: Regulatory Lead: LUIS HealthcareRadiology Study observation (narrative)[facility]ITALAshwin HealthcareUS PELVIS W/ TRANSVAGINALOrdered By: Radiologist Radiology on 55-03-1539VVEP Appdra Work Phone: Lon 01-04-2022L Specimen: [id number] Received: 01/05/22 Status: QUOC Rawls Num: [id number] Spec Type: Surgical Subm Dr: Rodney Lema MD Tissues: A Skin-Other than Cyst, tag, debridement or plastic repair (SCALP) Procedures: HE Stain/5, Gross/Micro L4 Patient Age/Sex Location Account Attending Physician Sherly Erickson / [facility] [id number] Rodney Lema MD SPEC NUM: [id number] RECD: 01/05/22 STATUS: QUOC RAWLS NUM: [id number] JANE: 01/04/22 [facility] DR: Rodney Lema MD ENTERED: [...] Fixative: 10% Neutral Buffered Formalin (ESTELA/YJ) Specimen: [id number] Received: 01/05/22 Status: QUOC Rawls Num: [id number] Spec Type: Surgical Subm Dr: Rodney Lema MD Tissues: A Skin-Other than Cyst, tag, debridement or plastic repair (SCALP) Procedures: HE Stain/5, Gross/Micro L4 Patient: Sherly Erickson [id number] (Continued) Specimen: [id number] Received: 01/05/22 (Continued) Signed (signature on file) Debora Cintron MD 01/07/22 0930 Specimen: [id number] Received: 01/05/22 Status: QUOC Rawls Num: [id number] Spec Type: Surgical Subm Dr: Rodney Lema MD Tissues: A Skin-Other than Cyst, tag, debridement or plastic repair (SCALP) Procedures: HE Stain/5, Gross/Micro L4 Patient: Sherly Erickson [id number] (Continued) Specimen: [id number] Received: 01/05/22 (Continued) Microscopic Description Six glass slides with H E stained material and two IHC stained slides have been examined. The microscopic findings support the above pathologic diagnosis. ANALYTE SPECIFIC REAGENT (ASR) DISCLAIMER: The use of one or more reagents in the above tests is regulated as an analyte specific reagent (ASR). The performance characteristics were determined by the Laboratory of [facility]. Immunohistochemistry assays have not been validated on decalcified tissue. Results should be interpreted with caution given the possibility of false negative results on decalcified specimens. They have not been cleared by the US Food and Drug Administration. The FDA has determined that such clearance or approval is not necessary. CPT Codes 81094, 93839, 10048 Specimen: [id number] Received: 01/05/22 Status: QUOC Rawls Num: [id number] Spec Type: Surgical Subm Dr: Rodney Lema MD Tissues: A Skin-Other than Cyst, tag, debridement or plastic repair (SCALP) Procedures: HE Stain/5, Gross/Micro L4 Patient: Sherly Erickson [id number] (Continued) Signed (signature on file) Debora Muller (more content not included)...[facility] HospitalCytology Cervical or vaginal smear or scraping studyon 13-19-1530XIHLSaint Mary's Hospital of [facility] Springs Vital Signs Date TimeVital SignValuePerforming ZbzszlyyiHrmmncfn40-53-4310 13:43-0400Body mass index (BMI) [Ratio]39.35 kg/m2Emily Ballesteros PA Work Phone: [phone] [place], [place] [address]Crushavphn47-95-0520 13:43-0400Body pzyymv499.97 kgEmily Ballesteros PA Work Phone: [phone]-[facility] SpringsZxwwxrttui51-89-4250 13:43-0400Diastolic blood smqeoqaj891 mm[Hg]Emily Ballesteros PA Work Phone: [phone] SpringsZhquqysofa12-89-6900 13:43-0400Systolic blood ocpwpqvg253 mm[Hg]Emily Ballesteros PA Work Phone: [phone])906-[facility] SpringsZafngxhudu81-57-6675 13:45-0400Body mass index (BMI) [Ratio]41.47 kg/f5YlafhscvKali Woodward HEEL BUILDER Work Phone: [facility] SpringsZupfrhevem26-98-2961 13:45-0400Body lehywb318.11 kgKali Woodward HEEL BUILDER Work Phone: [phone] SpringsQhwstnzncs13-69-3681 13:45-0400Diastolic blood zlrdlwla53 mm[Hg]Kali Woodward HEEL BUILDER Work Phone: [facility] SpringsQfmssqljow29-50-2789 13:45-0400Systolic blood mm[Hg]Kali Woodward HEEL BUILDER Work Phone: 1([phone] [place] [address]-22-2025 13:42-0400Body mass index (BMI) [Ratio]45.11 kg/b6Evfhe Celeste DO Work Phone: 1(489)190-[address] [place] [address]-22-2025 13:42-0400Body mnqvas186.64 kgCorey Celeste DO Work Phone: [place] [address]Zwretbovti41-96-4918 13:42-0400Diastolic blood mm[Hg]Cole Celeste DO Work Phone: 1(299)034-[address] [place] [address]-22-2025 13:42-0400Systolic blood hmqhelis111 mm[Hg]Cole Celeste DO Work Phone: 1(624)148-[address] [place] [address]-15-2025 13:53-0400Body mass index (BMI) [Ratio]44.95 kg/q5Bylvi Celeste DO Work Phone: 1(120)087-[address] [place] [address]-15-2025 13:53-0400Body xunfbo618.18 kgCorey Celeste DO Work Phone: 1(392)599-[address] [place] [address]-15-2025 13:53-0400Diastolic blood erdsstsp53 mm[Hg]Cole Celeste DO Work Phone: 1(736)236-[address] [place] [address]-15-2025 13:53-0400Systolic blood yhmahvax955 mm[Hg]Cole Celeste DO Work Phone: [phone])372-[address] [place] [address]-08-2025 13:39-0400Body mass index (BMI) [Ratio]45.53 kg/l2Xzlzv Celeste DO Work Phone: [phone])837-[address] [place] [address]-08-2025 13:39-0400Body kfyrre895.86 kgCorey Celeste DO Work Phone: 1(730)124-[address] [place] [address]-08-2025 13:39-0400Diastolic blood kdcnhtir16 mm[Hg]Cole Celeste DO Work Phone: [phone]-[facility]8[place] [address]Aqnfrrvhqf67-96-3571 13:39-0400Systolic blood ttloewke087 mm[Hg]Cole Celeste DO Work Phone: [facility] SpringsGnnfoedjik59-66-0791 09:01-0400Body mass index (BMI) [Ratio]44.95 kg/m2Emily Medranosarah TALBERT Work Phone: [facility] SpringsGhzorezxdd03-53-8423 09:01-0400Body .18 kgEmily Medranosarah TALBERT Work Phone: [facility] SpringsMxxeccsoan66-99-5694 09:01-0400Diastolic blood epjidcrd38 mm[Hg]Emily Favian TALBERT Work Phone: [facility] SpringsBkvpvwcvrf24-12-6215 09:01-0400Systolic blood rnttfeav092 mm[Hg]Emily Favian TALBERT Work Phone: [phone] [place], [place] [address]Ctkndsemon25-31-8599 12:01-0400Body nqmqak161.2 cmAhmet Soler MD Work Phone: [phone] [place], [place] 0784803-20-2025 12:01-0400Body mass index (BMI) [Ratio]45.11 kg/c4SivsjqAhmet Soler MD Work Phone: [phone])[address] [place], [place] 0784803-20-2025 12:01-0400Body bfebjp533.64 kgAhmet Soler MD Work Phone: [phone])[address] [place], [place] 0784803-20-2025 12:01-0400Diastolic blood yjcvxrzh41 mm[Hg]Ahmet Soler MD Work Phone: [phone])[address] [place], [place] 0784803-20-2025 12:01-0400Heart rate 90 /minAhmet Soler MD Work Phone: [phone])[address] [place], [place] 0784803-20-2025 12:01-0400Systolic blood mwddtaqh004 mm[Hg]Ahmet Soler MD Work Phone: [phone])[address] [place], [place] 0784803-18-2025 08:32-0400Body mass index (BMI) [Ratio]44.64 kg/r7Dospq Celeste DO Work Phone: [facility] SpringsUvmpkxswva93-66-1992 08:32-0400Body dihluq752.28 kgCorey Celeste DO Work Phone: [facility] SpringsLdcwykmhjj74-56-6665 08:32-0400Diastolic blood cfabwher92 mm[Hg]Cole Celeste DO Work Phone: noAR HealthcareComment on above:118/86 second BP 11-20-2024 08:32-0400Systolic blood mm[Hg]Cole Celeste DO Work Phone: [facility] HealthcareComment on above:118/86 second BP 11-06-2024 08:46-0500Body mass index (BMI) [Ratio]44.01 kg/m2Amy Favian PA Work Phone: [facility] SpringsVvmenonzam86-10-8624 08:46-0500Body cttxus853.46 kgAmy Favian PA Work Phone: [facility] SpringsNoqpkxqjjz71-77-4786 08:46-0500Diastolic blood mm[Hg]Emily TALBERT Work Phone: [facility] SpringsVjabfgkood36-11-5066 08:46-0500Systolic blood mm[Hg]Emily Ballesteros PA Work Phone: [facility] SpringsGwhgoshvtn80-51-7787 14:46-0500Body mass index (BMI) [Ratio]43.04 kg/t1Mllfi Celeste DO Work Phone: [facility] SpringsVpfxrxcqog74-20-8550 14:46-0500Body aacsbt351.65 kgCorey Celeste DO Work Phone: [facility] SpringsFvbjpjlbhe06-40-8659 14:46-0500Diastolic blood qkltjwxu94 mm[Hg]Cole Celeste DO Work Phone: [facility] SpringsEcojuyxpph51-32-2346 14:46-0500Systolic blood mm[Hg]Cole Celeste DO Work Phone: [facility] SpringsHrxzhgbwau54-94-4829 13:57-0500Body mass index (BMI) [Ratio]42.15 kg/m2Amy Favian PA Work Phone: [facility] SpringsJghgqdxxqg14-47-0869 13:57-0500Body qnvyzb215.07 kgEmily Ballesteros NITISH Work Phone: [phone]-[facility] SpringsIkhchpjzzi07-05-9978 13:57-0500Diastolic blood eggqjrvp35 mm[Hg]Emily Medranosarah TALBERT Work Phone: [phone]-[facility] SpringsGxmmwvvjya21-39-7866 13:57-0500Systolic blood tbeiuwwt476 mm[Hg]Emily Ballesteros NITISH Work Phone: [phone])990-[facility] SpringsRpdcwxnzal57-29-0234 14:35-0500Body mass index (BMI) [Ratio]40.94 kg/t7Vicam Celeste DO Work Phone: 1(991)433-[address] [place], [place] [address]Hdgdfywwpd01-93-0161 14:35-0500Body msweus148.57 kgCorey Celeste DO Work Phone: 1(902)286-[address] [place], [place] [address]Tzxgtaurrp86-95-1901 14:35-0500Diastolic blood nhxysjvr43 mm[Hg]Cole Celeste DO Work Phone: 1(767)[facility] [place], [place] [address]Szbtrtdwmm76-41-5425 14:35-0500Systolic blood btkxexnl393 mm[Hg]Cole Celeste DO Work Phone: 1(409)[facility] [place], [place] [address]Saxsvksvqw62-56-3263 11:09-0500Body mass index (BMI) [Ratio]39.37 kg/n1Wqvnd Celeste DO Work Phone: 1(892)[facility] [place], [place] [address]Lhjpmbhbco55-19-3066 11:09-0500Body uycmvt288.03 kgCorey Celeste DO Work Phone: 1(777)[facility] [place], [place] [address]Wvtibgwurs24-49-3287 11:09-0500Diastolic blood jxevlfzu79 mm[Hg]Cole Celeste DO Work Phone: 1(641)[facility] [place], [place] [address]Rniofgzcdr13-46-7007 11:09-0500Systolic blood gnzunxvz521 mm[Hg]Cole Celeste DO Work Phone: 1(040)[facility] [place], [place] [address]Xfyelgvrhd84-53-3072 10:45-0500Body mass index (BMI) [Ratio]38.37 kg/j2Oszbm Celeste DO Work Phone: 1(560)[facility] [place], [place] [address]Didgcyjuxr41-30-5281 10:45-0500Body ewzwhk895.13 kgCorey Celeste DO Work Phone: [facility] SpringsUgelrtrpnl51-31-3718 10:45-0500Diastolic blood zwbcckwo12 mm[Hg]Cole Celeste DO Work Phone: [facility] SpringsUzktfasvxy53-60-1226 10:45-0500Systolic blood huzvrvqj762 mm[Hg]Cole Celeste DO Work Phone: [facility] SpringsKkwikmiogt36-07-2190 13:09-0400Body mass index (BMI) [Ratio]38.53 kg/m2[facility]10-03-2024 13:09-0400Body fsuqfq213.58 kgSt. [facility]10-03-2024 13:09-0400Diastolic blood mkyeanes91 mm[Hg][facility]10-03-2024 13:09-0400Systolic blood gbuhnwgs578 mm[Hg][facility]09-03-2024 11:32-0400Body khcopl116.2 cmCorey Celeste DO Work Phone: 1([phone] [place], [place] [address]Wxupsadkat62-44-8620 11:32-0400Body mass index (BMI) [Ratio]39.16 kg/o9Qrknk Celeste DO Work Phone: [facility] SpringsTzftmzldpt23-24-3283 11:32-0400Body ifkadn883.4 kgCorey Celeste DO Work Phone: [facility] SpringsWuumaebsbc36-70-3570 11:32-0400Diastolic blood xwwleosc25 mm[Hg]Cole Celeste DO Work Phone: 1(130)668-[address] [place], [place] [address]Qccxpskfla38-99-6679 11:32-0400Systolic blood npczanns288 mm[Hg]Cole Celeste DO Work Phone: 1(333)327-[address] [place], [place] [address]Ruykjdywuo19-66-4166 08:53-0500Body aviopz147.2 cmCorey Celeste DO Work Phone: [facility] SpringsGavkjeuxlu76-05-2300 08:53-0500Body mass index (BMI) [Ratio]38.28 kg/y2Bbogz Celeste DO Work Phone: [facility] Rvnxvqnxmh21-28-7414 08:53-0500Body yyuklj934.86 kgCorey Celeste DO Work Phone: [facility] Xnqgetnvtj90-42-8511 08:53-0500Diastolic blood txxbdwom49 mm[Hg]Cole Celeste DO Work Phone: noMS Qbtrltirky01-34-3261 08:53-0500Systolic blood shbowgaj914 mm[Hg]Cole Celeste DO Work Phone: noMS Healthcare Encounters Encounter DateEncounter TypeCare ProviderFacilityStart: 02-06-2025 End: 82-28-7618Qlgdlhmrxr care visitEmily TALBERT Work Phone: [facility] BCP OBComment on above:Yeast infection (Primary Dx); 6 weeks follow-upStart: 02-06-2025 End: 96-03-0695uedswdrrcjIDF RAMEYNot AvailableStart: 01-02-2025 End: 60-86-4067Ipolbt Alex Woodward HEEL BUILDER Work Phone: [facility] BCP OBStart: 01-02-2025 End: 24-96-6071Wujwzd flowsCharisma Woodward HEEL BUILDER Work Phone: [facility] BCP OBStart: 01-02-2025 End: 64-82-8083wjlcctdajfAJKQIZBT EBMEGANNot AvailableStart: 01-02-2025 End: 71-95-1004Tazdan follow up visit related to original Di Woodward NP Work Phone: n[facility] BCP OBComment on above:Encounter for visit; S/P sectionStart: 12-27-2024 End: 30-16-1165Qinzgsvae Result EncounterCorey Celeste DO Work Phone: noms External Department UnsolicitedStart: 12-27-2024 End: 04-90-4256Hmzssbepg Result EncounterCorey Celeste DO Work Phone: [facility] External Department UnsolicitedStart: 12-26-2024 End: 18-96-4274Gbxjtiflq Result EncounterCorey Celeste DO Work Phone: [facility] External Department UnsolicitedStart: 12-26-2024 End: 92-68-7747Rdshigvxe Result EncounterCorey Celeste DO Work Phone: [facility] External Department UnsolicitedStart: 12-25-2024 End: 05-15-4863Mksfkn flowsheetCorey Celeste DO Work Phone: [facility] BCP OBStart: 12-25-2024 End: 01-37-4304Xpojdr flowsheetCorey Celeste DO Work Phone: [facility] BCP OBStart: 12-25-2024 End: 72-37-3151Lujvsk outpatient visit 15 minutesCorey Celeste DO Work Phone: [facility] BCP OBComment on above:Third trimester ; 37 weeks gestation of pregnancyStart: 12-25-2024 End: 80-63-2827zszynaofpzCOWRN FAZIONot AvailableStart: 12-24-2024 End: 97-01-8207Sdtraobwg Result EncounterCorey Celeste DO Work Phone: [facility] External Department UnsolicitedStart: 12-24-2024 End: 13-59-9838Otjwwrzvj Result EncounterCorey Celeste DO Work Phone: [facility] External Department UnsolicitedStart: 12-20-2024 End: 86-55-5290Auvxarxss Result EncounterCorey Celeste DO Work Phone: [facility] External Department UnsolicitedStart: 12-20-2024 End: 13-69-7675Bwcygblyu Result EncounterCorey Celeste DO Work Phone: [facility] External Department UnsolicitedStart: 12-18-2024 End: 64-28-9334Ewwjgn flowsheetCorey Celeste DO Work Phone: [facility] BCP OBStart: 12-18-2024 End: 39-55-8114Gpzjci flowsheetCorey Celeste DO Work Phone: [facility] BCP OBStart: 12-18-2024 End: 01-73-0711Jikkrhvqp Result EncounterCorey Celeste DO Work Phone: [facility] External Department UnsolicitedStart: 12-18-2024 End: 68-12-4798Opzyxn outpatient visit 15 minutesCorey Celeste DO Work Phone: [facility] BCP OBComment on above:Third trimester ; 36 weeks gestation of pregnancyStart: 12-18-2024 End: 05-40-0366foayixwwgoFOLHE FAZIONot AvailableStart: 12-17-2024 End: 86-36-6626Fiqisvuns Result EncounterCorey Celeste DO Work Phone: [facility] External Department UnsolicitedStart: 12-17-2024 End: 66-27-6725Mnlocbwce Result EncounterCorey Celeste DO Work Phone: [facility] External Department UnsolicitedStart: 12-11-2024 End: 20-34-0482Oixxea flowsheetCorey Celeste DO Work Phone: [facility] BCP OBStart: 12-11-2024 End: 53-65-7561Trzuxn flowsheetCorey Celeste DO Work Phone: [facility] BCP OBStart: 12-11-2024 End: 56-13-1234Opmwwa outpatient visit 15 minutesCorey Celeste DO Work Phone: [facility] BCP OBComment on above:Third trimester ; 35 weeks gestation of pregnancyStart: 12-11-2024 End: 05-27-1433hmgakulzwkZZNMO FAZIONot AvailableStart: 12-10-2024 End: 80-31-3977Pmwwqxbqk Result EncounterCorey Celeste DO Work Phone: [facility] External Department UnsolicitedStart: 12-10-2024 End: 55-41-2679Twuxqjehs Result EncounterCorey Celeste DO Work Phone: [facility] External Department UnsolicitedStart: 12-04-2024 End: 83-15-6434Sntxea Wilbur TALBERT Work Phone: [facility] OBStart: 12-04-2024 End: 72-11-8017Nsxymo Wilbur TALBERT Work Phone: [facility] OBStart: 12-04-2024 End: 25-22-5716Qtrzrc outpatient visit 15 minutesEmily TALBERT Work Phone: [facility] OBComment on above:Third trimester ; 34 weeks gestation of ; Gestational diabetes mellitus (GDM) affecting ; Gestational diabetes mellitus (GDM), antepartum, gestational diabetes method of control unspecifiedStart: 12-04-2024 End: 44-15-0269arudevwqdwZJU RAMEYNot AvailableStart: 12-03-2024 End: 41-77-0832Zsyfbjlcn Result EncounterCorey Celeste DO Work Phone: [facility] External Department UnsolicitedStart: 12-03-2024 End: 09-28-3723Wqkfcqcdf Result EncounterCorey Celeste DO Work Phone: noms External Department UnsolicitedStart: 12-03-2024 End: 11-00-1627eypwuyesctCBIWDClinton Memorial Hospitaltart: 11-26-2024 End: 71-60-5742Brlexftdw Result EncounterCorey Celeste DO Work Phone: noms External Department UnsolicitedStart: 11-26-2024 End: 30-63-2469Nssverzyf Result EncounterCorey Celeste DO Work Phone: noms External Department UnsolicitedStart: 11-22-2024 End: 45-39-0662Mlpzap consultation new/estab patient 58 Vicente Darden MD Work Phone: [phone]-Xkxcv Medicine at [facility] Comment on above:Polyhydramnios affecting in third trimester (Primary Dx); PCOS (polycystic ovarian syndrome)Start: 11-22-2024 End: 97-94-7874rzrjopqbnlAMTRR [facility] [place] PPGStart: 11-20-2024 End: 86-62-9157Xaalml outpatient visit 15 minutesCorey Celeste DO Work Phone: noms BCP OBComment on above:Third trimester ; 32 weeks gestation of pregnancyStart: 11-20-2024 End: 94-80-7119mmjyfevptbRWLAD FAZIONot AvailableStart: 11-12-2024 End: 23-78-6486Qtglczghi Result EncounterCorey Celeste DO Work Phone: noms External Department UnsolicitedStart: 11-12-2024 End: 67-46-4413Ohzjjnusi Result EncounterCorey Celeste DO Work Phone: noms External Department UnsolicitedStart: 11-06-2024 End: 56-48-3419Toqiqo Wilbur TALBERT Work Phone: noms BCP OBStart: 11-06-2024 End: 95-50-5350Iczksr flowsheetEmily TALBERT Work Phone: noms BCP OBStart: 11-06-2024 End: 29-75-9462Gkoxnd outpatient visit 15 minutesAmy Favian TALBERT Work Phone: noms BCP OBComment on above:Third trimester ; 30 weeks gestation of ; Excessive growth affecting management of in third trimester, single or unspecified fetus; Diabetes mellitus screeningStart: 11-06-2024 End: 99-22-4415axgltczyknFMB FAVIANNot AvailableStart: 03-26-6551dlaskuteadDsoqx A BodieFacility:[facility] CLINICStart: 10-24-2024 End: 60-46-0462Fgwhjimoh Result EncounterEmily TALBERT Work Phone: noMS External Department UnsolicitedStart: 10-24-2024 End: 47-32-6351Uttrlaqea Result EncounterEmily TALBERT Work Phone: noms External Department UnsolicitedStart: 10-24-2024 End: 53-09-7738jenwuiypiwHDURVKettering Health Hamiltontart: 10-22-2024 End: 74-20-2641Rkojmh outpatient visit 15 minutesCorey Celeste DO Work Phone: NOMS BCP OBComment on above:28 weeks gestation of ; Third trimester ; Excessive growth affecting management of in third trimester, single or unspecified fetusStart: 10-22-2024 End: 13-43-7401mstzeeyctvLOKUA FAZIONot AvailableStart: 10-22-2024 End: 32-97-7040Bbkacy flowsheetCorey Celeste DO Work Phone: NOMS BCP OBStart: 10-22-2024 End: 18-10-4768Oatkgw flowsheetCorey Celeste DO Work Phone: NOMS BCP OBStart: 10-18-2024 End: 51-55-9567zmuytjeckrPXDBEClaremore Indian Hospital – [place] PPGStart: 10-15-2024 End: 39-10-0544Tvzas abstractingScanning Provider ExternalMaternal- Medicine at [facility] HospitalStart: 10-08-2024 End: 23-18-2244Xuaare Wilbur TALBERT Work Phone: NOMS BCP OBStart: 10-08-2024 End: 33-57-3286Tqockr Wilbur TALBERT Work Phone: NOMS BCP OBStart: 10-08-2024 End: 49-55-5427Lakzgb outpatient visit 15 minutesEmily TALBERT Work Phone: NOMS BCP OBComment on above:Third trimester ; 26 weeks gestation of ; Diabetes mellitus screeningStart: 10-08-2024 End: 29-29-2672vvfaxdgphqZFW RAMEYNot AvailableStart: 40-85-6576cjpdcxcktrYkcqkj Y WeiningerFacility:[facility] Hospitaltart: 57-19-1823wqoaxrebqdImcgsa Y WeiningerFacility:[facility] Hospitaltart: 09-20-2024 End: 07-17-1158Lfgahckmy encounterJustkristine Maria DMD, MD Work Phone: [facility] [address] ORStart: 09-10-2024 End: 80-39-9668Debfgmicp Result EncounterCorey Celeste DO Work Phone: noms External Department UnsolicitedStart: 09-10-2024 End: 73-24-7643Fsfhlsdht Result EncounterCorey Celeste DO Work Phone: NOUG External Department UnsolicitedStart: 09-10-2024 End: 07-17-2561Pkoxkc outpatient visit 15 minutesCorey Celeste DO Work Phone: [facility] OBComment on above:, unspecified gestational age; Encounter for supervision of normal first in first trimester; Second trimester ; 22 weeks gestation of pregnancyStart: 09-10-2024 End: 83-50-3510bsbokoorbwIZQXB FAZIONot AvailableStart: 09-10-2024 End: 86-38-6622pehxlbagayLTV Iman AvailableStart: 08-10-2024 End: 35-88-1742Iowowskst Result EncounterAmy Favian TALBERT Work Phone: noms External Department UnsolicitedStart: 08-10-2024 End: 18-00-0017Jomlmhbzb Result EncounterAmy Favian TALBERT Work Phone: noms External Department UnsolicitedStart: 08-08-2024 End: 25-50-9804Jarqvy flowsheetCorey Celeste DO Work Phone: NOMS BCP OBStart: 08-08-2024 End: 00-34-6143Rkyqzk flowsheetCorey Celeste DO Work Phone: NOMS BCP OBStart: 08-08-2024 End: 19-23-7010Ydmekcixp Result EncounterAmy Favian TALBERT Work Phone: noms External Department UnsolicitedStart: 08-08-2024 End: 18-70-9883Xbpspszv Result EncounterAmy Favian TALBERT Work Phone: NOMS External Department UnsolicitedStart: 08-08-2024 End: 79-59-3087Npijki outpatient visit 15 minutesCorey Celeste DO Work Phone: noms BCP OBComment on above:Well woman exam with routine gynecological exam; Second trimester ; 17 weeks gestation of ; Vaginal discharge; STD exposure; Screening, , for anatomic survey; Elevated glucose tolerance testStart: 08-08-2024 End: 95-81-8448Tdgrdgu encounter procedureCorey Celeste DO Work Phone: noms [facility] Work Phone: Start: 08-08-2024 End: 51-83-0132sftnqsggrnINNHS FAZIONot AvailableStart: 07-31-2024 End: 57-38-1057Xvsdtkdio Result EncounterCorey Celeste DO Work Phone: noms External Department UnsolicitedStart: 07-31-2024 End: 45-53-2753Txovfmxnf Result EncounterCorey Celeste DO Work Phone: noms External Department UnsolicitedStart: 07-10-2024 End: 41-20-7482Eevkxq flowsheetCorey Celeste DO Work Phone: noms BCP OBStart: 07-10-2024 End: 51-75-8115Ktuoyz flowsheetCorey Celeste DO Work Phone: noms BCP OBStart: 07-10-2024 End: 62-71-7094Zzojcn outpatient visit 15 minutesCorey Celeste DO Work Phone: noms BCP OBComment on above:Second trimester ; 13 weeks gestation of ; Nausea and vomiting in ; Diabetes mellitus screeningStart: 07-10-2024 End: 82-98-1560zbbbbieqowGWLPU FAZIONot AvailableStart: 07-05-2024 End: 47-08-6471jdypkaauqsJwpac A BodieFacility:[facility] Hospitaltart: 07-04-2024 End: 20-00-9805Eekpygxyv Result EncounterCorey Celeste DO Work Phone: noMS External Department UnsolicitedStart: 07-04-2024 End: 38-44-8066Aaikmamdk Result EncounterCorey Celeste DO Work Phone: noms External Department UnsolicitedStart: 06-07-2024 End: 78-60-7833Mpmvliang Result EncounterCorey Celeste DO Work Phone: noms External Department UnsolicitedStart: 06-07-2024 End: 04-37-2515Qtsebtqvm Result EncounterCorey Celeste DO Work Phone: noms External Department UnsolicitedStart: 06-07-2024 End: 11-30-9930lbbyiqdjvyFbzh Bcp Ob Celeste NurseNOMS BCP OBComment on above:GA: 4u0rIynik: 06-01-2024 End: 57-02-5081wsawvusdouEsoqb A BodieFacility:[facility]INICStart: 05-28-2024 End: 03-13-2316Ybpttaaln department patient visitDavid A BodieFacility:[facility] HospitalStart: 05-28-2024 End: 49-12-4799miqvrvncfuHkufnh N Hayes PACFacility:[facility] HospitalStart: 05-08-2024 End: 14-40-3303Isyvbr flowsheetCorey Celeste DO Work Phone: NOMS BCP OBStart: 05-08-2024 End: 82-53-1494Wbbsgq flowsheetCorey Celeste DO Work Phone: NOMS BCP OBStart: 05-08-2024 End: 00-18-5035Cqxjca outpatient visit 15 minutesCorey Celeste DO Work Phone: NOMS BCP OBComment on above:Missed mensesStart: 05-08-2024 End: 24-90-4403zuqfkwkxepTIRRH FAZIONot AvailableStart: 04-24-2024 End: 23-81-7600Jkbbqxp encounter Lissett Richter DDS Work Phone: [facility] SurgeryComment on above:Abnormal tooth eruption (Primary Dx); Impacted third molar toothStart: 30-65-6436tbsmtmebfjZBJGSara RICHTER Facility:[facility] CenterStart: 03-14-2024 End: 59-99-7008anzmlwtztvAKKAV R FAZIOFacility:[facility] Hospitaltart: 02-14-2024 End: 47-97-6798swvobbzqfoAOXYJ R FAZIOFacility:[facility] HospitalStart: 01-17-2024 End: 59-95-8616lmkaflzipzKOUTO R FAZIOFacility:[facility] Hospitaltart: 10-17-2023 End: 63-67-4737Xeluvnfcp Result EncounterCorey Celeste DO Work Phone: noms External Department UnsolicitedStart: 10-17-2023 End: 97-67-7772Rhjyxdesh Result EncounterCorey Celeste DO Work Phone: noms External Department UnsolicitedStart: 10-06-2023 End: 71-82-5213Tjptwu outpatient new 20 minutesCorey Celeste DO Work Phone: noms BCP OBComment on above:Irregular periods/menstrual cycles; PCOS (polycystic ovarian syndrome); Insulin resistance Procedures DateProcedureProcedure DetailPerforming ClinicianStart: 22-64-7624GAF CBC WITH AUTO DIFFCorey Celeste DO Work Phone: Start: 10-30-1283LXI CBC WITH AUTO DIFFCorey Celeste DO Work Phone: Start: 86-39-4910Xwirf dip stick/tablet rgnt non-auto w/o micrscpCorey Celeste DO Work Phone: Start: 59-23-7450GE OB BPP W NON-STRESSCorey Celeste DO Work Phone: Start: 06-90-9051WFX 12-LEADCorey Celeste DO Work Phone: Start: 36-54-2596DF OB BPP W NON-STRESSCorey Celeste DO Work Phone: Start: 00-15-8955Ffckb dip stick/tablet rgnt non-auto w/o micrscpCorey Celeste DO Work Phone: Start: 73-20-6893KFB MISCELLANEOUS TESTCorey Celeste DO Work Phone: Start: 81-97-1613ZU OB BPP W NON-STRESSCorey Celeste DO Work Phone: Start: 48-72-0098Agrnw dip stick/tablet rgnt non-auto w/o micrscpCorey Celeste DO Work Phone: Start: 64-43-5254GF OB BPP W NON-STRESSCorey Celeste DO Work Phone: Start: 74-46-4923BU OB BPP W NON-STRESSCorey Celeste DO Work Phone: Start: 84-44-1404MF OB BPP W NON-STRESSCorey Celeste DO Work Phone: Start: 13-32-7038Jxhkc dip stick/tablet rgnt non-auto w/o micrscpCorey Celeste DO Work Phone: Start: 74-28-6478JL OB BPP W NON-STRESSCorey Celeste DO Work Phone: Start: 37-63-3434Bayte dip stick/tablet rgnt non-auto w/o micrscpAmy Favian TALBERT Work Phone: Start: 50-40-0207CGG CBC WITH AUTO DIFFAmy Favian TALBERT Work Phone: Start: 40-85-6204Kndbe dip stick/tablet rgnt non-auto w/o micrscpCorey Celeste DO Work Phone: Start: 57-11-5693XTG DRUG SCREEN RAPID (URINE)Cole Celeste DO Work Phone: Start: 42-15-8813WJOOMGG TOLERANCE 3 HOURAmy Favian TALBERT Work Phone: Start: 27-43-3006Jkpxl dip stick/tablet rgnt non-auto w/o micrscpAmy Favian TALBERT Work Phone: Start: 01-29-0947SEF,APTIMA HPV,AGE GDLNAmy Favian TALBERT Work Phone: Start: 29-87-3732Sfesmsliajr observation [Identifier] in Cervix by Cyto Leslie Soler MD Work Phone: Start: 73-55-7425CXQJHLKHS VAGINITIS (HTRX)Emily TALBERT Work Phone: Start: 12-76-9779TAGLPVJ 1 HOURCorey Celeste DO Work Phone: Start: 79-69-6367Lqigl dip stick/tablet rgnt non-auto w/o micrscpCorey Celeste DO Work Phone: Start: 92-90-0489RLG CBC WITH AUTO DIFFCorey Celeste DO Work Phone: Start: 42-13-4570QS OB TRANSVAGINALCorey Celeste DO Work Phone: Start: 92-21-3057Yshjj dip stick/tablet rgnt non-auto w/o micrscpCorey Celeste DO Work Phone: Start: 42-03-9240Vzxbv test visual color cmprsn methsCorey Celeste DO Work Phone: Start: 83-83-9974wqsvzfrwj radiographic imageGeorge Rosa KAPADIA MD Work Phone: start: 24-33-8668PX PELVIS W/ TRANSVAGINALCorey Celeste DO Work Phone: Start: 71-59-2548Llec cerv/vag auto thin layer prep mnl screenMona J Nataprawira DO Work Phone: H/O: sectionS/P sectionKristina Crissy HEEL BUILDER Work Phone: Plan of Treatment DateCare ActivityDetailAuthorStart: 41-90-1662Cklfrvmf (RZV) Vaccine (1 of 2) Shingles (RZV) Vaccine (1 of 2)[facility]HealthStart: 36-93-2918LDfF,Tdap and Td Vaccines (9 - Td or Tdap)DTaP,Tdap and Td Vaccines (9 - Td or Tdap)[facility] SystemStart: 53-14-2986Fprxzvs vaccinationTetanus (Td or Tdap) Booster [facility]HealthStart: 70-05-1369Lkzuhmedl for malignant neoplasm of cervixPap Smear [facility]ardeetart: 43-85-3961Fwwkg BMI ScreeningAdult BMI Screening [facility]etart: 33-49-9295Xrxondu ScreeningTobacco Screening [facility]etart: 08-15-2025 End: 48-06-3705Inrldst encounter procedureNOMS BCP OBStart: 88-60-0521Lakxpcgql vaccinationNOAR HealthcareStart: 02-11-2025 End: 30-07-2435Gcacyfn encounter jgsnjxxyu87/09/2025 2:00 PM EDT Office Visit [facility] Oral Surgery [address] [place] [address] Juan Maria DMD, MD [address] [place] [address] [facility] Oral SurgeryStart: 02-06-2025 End: 84-75-3823ntsxhxjcmq21/04/2025 1:30 PM EDT Visit [facility] OB [address] [place] [phone] Emily Ballesteros PA [address] [place] [address] NOMS BCP OBStart: 12-26-2024 End: 74-67-1964Iohadkljppoj / ancillary services hslbgssvux84/23/2025 11:30 AM EDT Ancillary Procedure [facility] [address] [place] [phone] NOMS BCP OBStart: 12-25-2024 End: 56-83-4714Mcixivq encounter procedureNOMS BCP OBComment on above:Arrived Start: 12-18-2024 End: 48-70-2366WROZOQA, GROUP B STREP WITH SUSCEPTIBLITYCULTURE, GROUP B STREP WITH SUSCEPTIBLITY Lab Routine Third trimester Expected: 12/18/2024, Expires: 12/18/2025[facility] Work Phone: comment on above:Expected: 12/18/2024, Expires: 12/18/2025Start: 12-18-2024 End: 25-82-1644Kdqvwvt encounter procedureNOMS BCP OBComment on above:Arrived Start: 12-11-2024 End: 41-00-4050Yqqafkn encounter procedureNOMS BCP OBComment on above:Arrived Start: 12-04-2024 End: 73-86-2415KR for pregnancyUS OB follow up transabdominal approach Imaging Routine Gestational diabetes mellitus (GDM) affecting Expected: 12/04/2024, Expires: 12/04/2025[facility] Work Phone: comment on above:Expected: 12/04/2024, Expires: 12/04/2025Start: 12-04-2024 End: 12-17-0245Nkaapwo encounter procedureNOMS BCP OBComment on above:Arrived Start: 11-20-2024 End: 01-24-9064Lzxnsfn encounter kabevqxvq16/18/2025 8:30 AM EDT Routine [facility] BCP OB [address] [place] [address] Cole Alonso, DO [address] [place] [address] NOMS BCP OBStart: 11-06-2024 End: 31-27-5934Fgfbzefiwqs of glucose 1 hour after glucose challenge for glucose tolerance testGlucose tolerance, 1 hour Lab Routine Diabetes mellitus screening Expected: 11/06/2024 (Approximate), Expires: 11/06/2025[facility] HealthcareComment on above:Expected: 11/06/2024 (Approximate), Expires: 11/06/2025Start: 11-06-2024 End: 53-19-7738RB biophysical profile w non stress testUS biophysical profile w non stress test Imaging Routine Excessive growth affecting management of in third trimester, single or unspecified fetus Expected: 11/06/2024 (Approximate), Expires: 11/06/2025[facility] Work Phone: Comment on above:Expected: 11/06/2024 (Approximate), Expires: 11/06/2025Start: 11-06-2024 End: 46-55-5924Zqvhuth encounter procedureNOMS BCP OBComment on above:Arrived Start: 10-22-2024 End: 27-02-4105Czupmwg encounter procedureNOMS BCP OBComment on above:Arrived Start: 10-22-2024 End: 03-09-0676FZ biophysical profile w non stress testUS biophysical profile w non stress test Imaging Routine Excessive growth affecting management of in third trimester, single or unspecified fetus Expected: 10/22/2024 (Approximate), Expires: 10/22/2025[facility] Work Phone: Comment on above:Expected: 10/22/2024 (Approximate), Expires: 10/22/2025Start: 10-18-2024 End: 30-55-5867Tembgwi encounter hgndldsif21/13/2025 1:00 PM EST Appointment Maternal Medicine [place] [address] [facility] [address] [place] [address] [phone] Medicine [place]Start: 10-08-2024 End: 26-08-1306YOP panel - Blood by Automated countCBC Lab Routine Diabetes mellitus screening Expected: 10/08/2024 (Approximate), Expires: 10/08/2025[facility] Work Phone: comment on above:Expected: 10/08/2024 (Approximate), Expires: 10/08/2025Start: 10-08-2024 End: 27-51-9735Qeiwacxtrih of glucose 1 hour after glucose challenge for glucose tolerance testGlucose tolerance, 1 hour Lab Routine Diabetes mellitus screening Expected: 10/08/2024 (Approximate), Expires: 10/08/2025[facility] HealthcareComment on above:Expected: 10/08/2024 (Approximate), Expires: 10/08/2025Start: 10-08-2024 End: 61-06-6754Rvqxjvo encounter procedureNOWEST HILLS HOSPITAL OBComment on above:Arrived Start: 09-10-2024 End: 89-88-0124Quuam of abuse panel - Urine by Screen methodRapid drug screen, urine Lab Routine , unspecified gestational age Encounter for supervision of normal first in first trimester Expected: 09/10/2024 (Approximate), Expires: 09/10/2025[facility] Work Phone: comment on above:Expected: 09/10/2024 (Approximate), Expires: 09/10/2025Start: 09-10-2024 End: 24-64-2746Tybfdwe encounter txmybuyjd36/06/2025 2:00 PM EST Routine [facility] [address] [facility] [address] [address] Cole Alonso, DO [address] [place], [place] [address] [place], [place] [phone] [facility] OBStart: 09-10-2024 End: 77-71-2550Wqtbqhwmvzar / ancillary services vsofcljwfi85/06/2025 1:00 PM EST Ancillary Procedure [facility] [address] [place], [place] [address] [address] [facility] OBStart: 08-08-2024 End: 10-68-5426Idggp fetoprotein, maternalAlpha fetoprotein, maternal Lab Routine Second trimester 17 weeks gestation of Expected: 08/08/2024 (Approximate), Expires: 02/06/2025[facility] HealthcareComment on above: Expected: 08/08/2024 (Approximate), Expires: 02/06/2025Start: 08-08-2024 End: 77-20-5574Zxwkoujebsk of glucose 3 hours after glucose challenge for glucose tolerance testGlucose tolerance, 3 hours Lab Routine Elevated glucose tolerance test Expected: 08/08/2024 (Approximate), Expires: 08/08/2025[facility] HealthcareComment on above:Expected: 08/08/2024 (Approximate), Expires: 08/08/2025Start: 08-08-2024 End: 31-73-6408ZL for pregnancyUS OB ANATOMY SINGLE W US OB CERVICAL LENGTH Imaging Routine Screening, , for anatomic survey Expected: 08/08/2024 (Approximate), Expires: 08/08/2025[facility] HealthcareComment on above: Expected: 08/08/2024 (Approximate), Expires: 08/08/2025Start: 08-08-2024 End: 46-97-4040Ewvedki encounter procedureNOMS BCP OBComment on above:Arrived Start: 07-10-2024 End: 62-36-4909Ftoekmwltcc of glucose 1 hour after glucose challenge for glucose tolerance testGlucose tolerance, 1 hour Lab Routine Diabetes mellitus screening Expected: 07/10/2024 (Approximate), Expires: 07/10/2025[facility] Work Phone: comment on above:Expected: 07/10/2024 (Approximate), Expires: 07/10/2025Start: 07-10-2024 End: 19-28-6641Whntwrl encounter procedureNOAR BCP OBComment on above:Arrived Start: 07-04-2024 End: 51-66-2976Fdidwhg encounter ollpyqbbz38/30/2024 3:00 PM EDT Office Visit [facility] Oral Surgery [address] [place] [address] Kenya Richter, DDS [address] [place] [address] [facility] SurgeryStart: 06-07-2024 End: 08-84-9075PED/RhABO/Rh Lab Routine Missed menses , unspecified gestational age Expected: 06/07/2024 (Approximate), Expires: 06/07/2025[facility] HealthcareComment on above:Expected: 06/07/2024 (Approximate), Expires: 06/07/2025Start: 06-07-2024 End: 38-90-3898Xyyyf type and Indirect antibody screen panel - BloodType and screen Lab Routine Missed menses , unspecified gestational age Expected: 06/07/2024 (Approximate), Expires: 06/07/2025[facility] Work Phone: comment on above:Expected: 06/07/2024 (Approximate), Expires: 06/07/2025Start: 06-07-2024 End: 99-75-1952Khaen of abuse panel - Urine by Screen methodRapid drug screen, urine Lab Routine , unspecified gestational age Encounter for supervision of normal first in first trimester Expected: 06/07/2024 (Approximate), Expires: 06/07/2025[facility] HealthcareComment on above:Expected: 06/07/2024 (Approximate), Expires: 06/07/2025Start: 06-07-2024 End: 50-44-6139HC Pelvis transvaginalUS OB transvaginal Imaging Routine Missed menses Expected: 06/07/2024 (Approximate), Expires: 06/07/2025[facility] Healthcare Comment on above:Expected: 06/07/2024 (Approximate), Expires: 06/07/2025Start: 06-07-2024 End: 11-29-6197rmwmiteshp33/03/2024 1:00 PM EDT Initial [facility] OB [address] [place] [address] [facility] BCP OBStart: 06-07-2024 End: 45-74-2541Kqagaqqvjywt / ancillary services rjircfhjpo01/03/2024 12:30 PM EDT Ancillary Procedure [facility] [address] [place], [place] [address] NOMS BCP OBStart: 80-50-5682Dztjdlect vaccinationInfluenza Vaccine (#1)[facility]Start: 05-08-2024 End: 06-56-6586Rysqvwm encounter wiqouzzmt55/03/2024 11:20 AM EDT Office Visit [facility] OB [address] [place] [phone] Cole Alonso, DO [address] [place] [address] ArrivedNOWEST HILLS [facility]OSPITAL OBComment on above:ArrivedStart: 66-09-0478ZLLGA-19 Vaccine ( season)COVID-19 Vaccine ( season)[facility]HealthStart: 35-94-0287Vorpapzeu vaccinationKettering Health Hamilton System Start: 11-03-2023 End: 60-96-5221Jsyuvzu encounter qveupifwa38/29/2024 8:30 AM EST Office Visit [facility] [address] [place] [address] Cole Alonso, DO [address] [place] [address] [facility] BCP OBStart: 10-17-2023 End: 30-92-8835Jjzlqsnittkz / ancillary services dhwuwbstya13/12/2024 8:30 AM EST Ancillary Procedure [facility] [address] [facility] [place] [address] LZYX BCP OBStart: 12-97-4673RMVSN-19 Vaccine ( season)COVID-19 Vaccine ( season)[facility]Start: 2019 Screening for malignant neoplasm of cervixPap SmearMetroHealthStart: 2017 DTaP,Tdap and Td Vaccines (1 - Tdap)DTaP,Tdap and Td Vaccines (1 - Tdap) [facility] SystemStart: 85-54-4976Iortkbeki A (HAV) Vaccine (optional start 19+ years)Hepatitis A (HAV) Vaccine (optional start 19+ years)[facility] Start: 34-97-9742Yiqibqdfh B vaccinationHepatitis B (HBV) Vaccine (1 of 3 - 19+ 3-dose series)[facility]Start: 38-71-1987Kdqpc BMI Follow Up PlanAdult BMI Follow Up PlanKettering Health Hamilton SystemStart: 56-04-9777Tsoom BMI ScreeningAdult BMI ScreeningProLicking Memorial Hospital SystemStart: 68-50-1313Cutclynmf C screening Hepatitis C AntibodyMetroHealthStart: 84-36-2695Ceyqsuf + diphtheria + acellular pertussis vaccine (product)Tdap BoosterMetroHealthStart: 57-16-7913Pmgruydqpgp for human papillomavirusHPV Vaccine (1 - 3-dose series)[facility]HealthStart: 93-40-4338Dialqgwtti ScreeningDepression ScreeningProLicking Memorial Hospital SystemStart: 70-95-4738Mjrtdjf ScreeningTobacco ScreeningProCleveland Clinic Children'S Hospital For RehabilitationAntimullerian hormone (AMH)Antimullerian hormone (AMH) Lab Routine Irregular periods/menstrual cycles Ordered: 10/06/2023[facility] HealthcareComment on above: Ordered: 10/06/2023acteria identified in Urine by CultureUrine culture Microbiology Routine Missed menses Ordered: 06/07/2024[facility] HealthcareComment on above:Ordered: 06/07/2024BC W Auto Differential panel - BloodCBC and differential Lab Routine PCOS (polycystic ovarian syndrome) Ordered: 10/06/2023 [facility] HealthcareComment on above:Ordered: 4CBC W Auto Differential panel - BloodCBC and differential Lab Routine Missed menses , unspecified gestational age Ordered: 06/07/2024[facility] HealthcareComment on above:Ordered: 06/07/2024HLAMYDIA TRACHOMATIS (GENITO/STI)CHLAMYDIA TRACHOMATIS (GENITO/STI) Lab Routine STD exposure Ordered: 08/08/2024[facility] HealthcareComment on above: Ordered: 08/08/2024ytology Cervical or vaginal smear or scraping studyPap Smear Pathology and Cytology Routine Well woman exam with routine gynecological exam Ordered: 08/08/2024[facility] HealthcareComment on above:Ordered: 08/08/2024HEADHEA Lab Routine PCOS (polycystic ovarian syndrome) Ordered: 10/06/2023[facility] HealthcareComment on above:Ordered: 10/06/[id number] Lab Routine PCOS (polycystic ovarian syndrome) Ordered: 10/06/2023[facility] Healthcare Comment on above:Ordered: 10/06/2023Follicle stimulating hormoneFollicle stimulating hormone Lab Routine PCOS (polycystic ovarian syndrome) Ordered: 10/06/2023[facility] HealthcareComment on above:Ordered: 10/06/2023hCG, quantitative, pregnancyhCG, quantitative, Lab Routine PCOS (polycystic ovarian syndrome) Ordered: 10/06/2023[facility] Work Phone: comment on above:Ordered: 10/06/2023Hemoglobin A1c measurementHemoglobin A1c Lab Routine Irregular periods/menstrual cycles Ordered: 10/06/2023[facility] HealthcareComment on above:Ordered: 10/06/2023Hemoglobin A1c/Hemoglobin.total in BloodHemoglobin A1c Lab Routine Missed menses , unspecified gestational age Ordered: 06/07/2024[facility] HealthcareComment on above:Ordered: 06/07/2024Hepatitis B virus surface Ag [Presence] in Serum or Plasma by ImmunoassayHepatitis B surface antigen Lab Routine Missed menses , unspecified gestational age Ordered: 06/07/2024[facility] HealthcareComment on above:Ordered: 06/07/2024Hepatitis C virus Ab [Presence] in Serum or Plasma by ImmunoassayHepatitis C antibody Lab Routine Missed menses , unspecified gestational age Ordered: 06/07/2024[facility] HealthcareComment on above: Ordered: 06/07/2024HIV-1/HIV-2 antigen/antibody combination immunoassayHIV-1 and HIV-2 antibodies Lab Routine Missed menses , unspecified gestational age Ordered: 06/07/2024[facility] HealthcareComment on above:Ordered: 06/07/2024 Luteinizing hormoneLuteinizing hormone Lab Routine PCOS (polycystic ovarian syndrome) Ordered: 10/06/2023[facility] HealthcareComment on above:Ordered: 10/06/2023 Neisseria gonorrhoeae DNA [Presence] in Unspecified specimen by ISHA with probe detectionNeisseria gonorrhea DNA probe, direct Lab Routine STD exposure Ordered: 08/08/2024[facility] HealthcareComment on above:Ordered: 08/08/2024eagin Ab [Presence] in Serum by RPRRPR Lab Routine Missed menses , unspecified gestational age Ordered: 06/07/2024[facility] HealthcareComment on above:Ordered: 06/07/2024ubella antibody, IgGRubella antibody, IgG Lab Routine Missed menses , unspecified gestational age Ordered: 06/07/2024[facility] HealthcareComment on above:Ordered: 06/07/2024SURESWAB(R) ADVANCED VAGINITIS PLUS, TMASURESWAB(R) ADVANCED VAGINITIS PLUS, TMA Pathology and Cytology Routine Vaginal discharge Ordered: 08/08/2024[facility] Work Phone: comment on above:Ordered: 08/08/2024Thyrotropin [Units/volume] in Serum or PlasmaTSH Lab Routine PCOS (polycystic ovarian syndrome) Ordered: 10/06/2023[facility] HealthcareComment on above:Ordered: 10/06/2023 Thyroxine (T4) free [Mass/volume] in Serum or PlasmaT4, free Lab Routine PCOS (polycystic ovarian syndrome) Ordered: 10/06/2023[facility] HealthcareComment on above:Ordered: 10/06/2023US for pregnancyUS PELVIS-TRANSVAG IF INDICATED Imaging Routine PCOS (polycystic ovarian syndrome) Ordered: 10/06/2023[facility] Comment on above:Ordered: 10/06/2023 Immunizations Immunization DateImmunizationNotesCare KlpffoayZuzirfuv26-53-8009aibnzqi toxoid, reduced diphtheria toxoid, and acellular pertussis vaccine, adsorbedJustin Crow KAPADIA MD Work Phone: [phone]owkzoc, injectable, quadrivalent, preservative freeMayrastin Crow KAPADIA MD Work Phone: [phone]qslhuj virus vaccine, unspecified formulationCole Alonso DO Work Phone: [facility] SpringsMjsoofhlbp42-91-0261wczybou toxoid, reduced diphtheria toxoid, and acellular pertussis vaccine, adsorbedJustin Crow KAPADIA MD Work Phone: [phone]xDiowtz01-44-8988hfjcx papilloma virus vaccine, quadrivalentJustin Crow KAPADIA MD Work Phone: [phone]sNchyxx29-21-3820qmyuxaqobfxcg polysaccharide (groups A, C, Y and W-135) diphtheria toxoid conjugate vaccine (MCV4P)Juan Maria DMD, MD Work Phone: [phone]dq papilloma virus vaccine, quadrivalentJustin Crow KAPADIA MD Work Phone: [phone]hIiqoru61-60-5155zgfoacn toxoid, reduced diphtheria toxoid, and acellular pertussis vaccine, adsorbedJustin Crwo KAPADIA MD Work Phone: [facility] Payers DatePayer CategoryPayerPolicy [id number] IndemnityANTHEM Member Subscriber Plan / Payer (Effective 2024-Present) Name: Sherly Erickson Relation to Subscriber: Self Name: Sherly Erickson Payer ID: [id number] (NAIC) Group ID: [id number] Type: Not on file Address: [facility] [address] [place] [id number] 2024Medicaid (Managed Care)[facility] MEDICAID .[id number] 2023Medicaid [id number] [id number] 1998 [id number] .1.127379.3.57[id number] 2.16.840.1.779318.3.57[id number] 2.16.840.1.904560.3.57[id number] 2.16.840.1.597022.3.57[id number] 2.16840.1.913471.3.57[id number] 2.16.840.1.673090.3.57[id number] 2.16840.1.280662.3.57[id number] 2.16840.1.227144.3.57[id number] 2.16840.1.019540.3.579.[id number] 2.16840.1.142045.3.57[id number] 2.16.840.1.750164.3.57[id number] 2.16840.1.834586.3.57[id number] 2.16.840.1.413927.3.57[id number] 2.16840.1.208375.3.57[id number] 2.16.840.1.217825.3.579.2.[id number] 2.16840.1.412781.3.57[id number] 2.16.840.1.470162.3.57[id number] 2.16.840.1.020961.3.579.2.93[id number] 2.16.840.1.409267.3.57[id number] 2.16840.1.100140.3.579.2.002336-23-9120Rkzjkre4166538 2.16840.1.413725.3.579.2.[id number] 2.16840.1.388221.3.57[id number] 2.0.1.440701.3.579.2.[id number] 2.840.1.404119.3.579.2.327842-47-2002Ixfmajv1016399 2.0.1.767159.3.579.[id number] 2.16840.1.978569.3.579.2.141692-99-7218Uwkbtvf9312815 2..1.936407.3.579.2.126189-73-6245Bmibjrp6861508 2.0.1.656269.3.57[id number] 2.840.1.747214.3.57[id number] 2.16840.1.097514.3.579.2.1259 Social History DateTypeDetailFacilityStart: 09-15-2023 End: 28-23-7356Zxrlrfn smoking status NHISEx-smokerNOMS HealthcareHistory of tobacco useCurrent smokerNOMS HealthcareHistory of tobacco useCigarette Smoker [facility] HealthcareStart: 10-06-2023 End: 20-79-6229Plypxxo intakeLifetime non-drinker (finding)[facility]S HealthcareStart: 09-15-2023 End: 59-77-8173Dnfmqku of Social functionNOMS HealthcareStart: 09-15-2023 End: 63-39-2083Viorgao use panelNOMS HealthcareStart: 23-54-5346Mhyeauh Comment caffeine: 1-2 cups per dayNOAR HealthcareStart: 95-61-6935Bgo Assigned At Not on fileNOAR HealthcareTobacco smoking status NHISTobacco smoking consumption unknownMetroHealthStart: 05-08-2024 End: 12-22-0871Usjijmm use and exposureSmokeless tobacco non-userNOAR Healthcare Start: 38-86-5134AsqjbyhgwQNPI HealthcareStart: 10-15-2024 End: 44-96-7192Oxwslttiw beverage intakeEx-drinker (finding)[facility] kooldiner SystemStart: 36-93-4239JhtfvvkunKzyzxthPpkLvilgg Health SystemStart: 12-03-2019 End: 46-86-6250QeqLnrotu (finding)[facility] Medical Equipment Procedure CodeEquipment CodeEquipment Original TextEquipment IdentifierDates Check blood glucose using test strips fasting and 1 hour after each meal. Four to 5 times a day perinsurance [id number]: 00-21-9526Fzk it to check fingerstick blood glucose 4 times a day fasting and 1 hour after each meal. Dispensed per insurance [id number]: 44-97-5660Umn as [id number]: 97-76-8848Paw as vzjdfztkil23820459Vcqyy: 12-12-2024 End: 02-06-2025 Clinical Notes 10-06-2023 to 02-06-2025 Note Date & BpftUtgvZepogpep68-55-6822 History of Present illness Narrative* NITISH Rojas - 02/06/2025 1:30 PM EDT Images from the original note were not included. Reason for Appointment: Patient ID: Sherly Erickson is a 24 y.o. female who presents for 6wk Post Patient presents today for Post Follow Up appointment. MEDICATIONS Current Outpatient Medications Medication Instructions aspirin 81 mg, Oral, Daily RT MV & Min w/FA-DHA ( GUMMIES PO) [...] Negative. Genitourinary: Negative. Musculoskeletal: Negative. Skin: Negative. Incisional site well approximated with right side 2 mm not completely closed no evidence of secondary infection. Neurological: Negative. All other systems reviewed and are negative. Hematological: Negative. Endocrine: Negative. Allergic/Immunologic: Negative. OBJECTIVE Objective: Physical Exam Constitutional: Appearance: Normal appearance. She is well-developed. Comments: 2 mm opening with mild serous drainage cleansed with betadine and silver nitrate applied to area for closure. Patient tolerated well. Mild cutaneous bonita at incisional area. Will prescribe nystatin and diflucan. Cardiovascular: Rate and Rhythm: Normal rate and [...] nursing note reviewed. Exam conducted with a lockstitch lining maker present. Vitals: Estimated body mass index is 39.35 kg/m as calculated from the following: Height as of 05/08/24: 5' 7 . Weight as of this encounter: 251 lb 4 oz. BP: (!) 138/100 No LMP recorded. ASSESSMENT & PLAN ICD-10-CM 1. 6 weeks follow-up Z39.2 Post Follow Up: Patient is doing well but has complaints of incisional site not healed completely. Patient presentstoday for 6 week visit. Patient is s/p C- Section delivery. Patient denies depression anddenies suicidal and homicidal ideations. All options were discussed with the patient regarding control and patient desires none at this time. Pt blood pressure elevated, she denies symptoms, pt encouraged to follow up with pcp Follow Up: Patient is to return for annual unless needed otherwise. Documented by Kali Woodward NP on behalf of: NITISH Rojas * NITISH Rojas - 02/06/2025 1:30 PM EDT Reason for Appointment: Patient ID: Sherly Erickson is a 24 y.o. female who presents for 6wk Post Patient presents today for Post Follow Up appointment. MEDICATIONS Current Outpatient Medications Medication Instructions aspirin 81 mg, Oral, Daily RT MV & Min w/FA-DHA ( GUMMIES PO) [...] reviewed. Vitals: Estimated body mass index is 39.35 kg/m as calculated from the following: Height as of 05/08/24: 5' 7 . Weight as of this encounter: 251 lb 4 oz. BP: (!) 138/100 No LMP recorded. ASSESSMENT & PLAN ICD-10-CM 1. 6 weeks follow-up Z39.2 Post Follow Up: Patient is doing well . Patient presents today for 6 week visit. Patient is s/p delivery. Patient states depression but denies suicidal and homicidal ideations. All options were discussed with the patient regarding control and patient desires none at this time. Follow Up: Patient is to return for annual unless needed otherwise. Documented by NITISH Rojas on behalf of: NITISH Rojas documented in this encounterSaint Mary's Hospital of Blue [id number] History of Present illness Narrative* Kali Woodward NP - 01/02/2025 1:30 PM EDT Reason for Appointment: Patient ID: Sherly Erickson is a 24 y.o. female who presents for Care Patient presents today for 1 Week Post Op Follow Up appointment. MEDICATIONS Current Outpatient Medications Medication Instructions [...] Skin: General: Skin is warm and dry. Comments: Low transverse incisional site with wound edges well approximated. Malodorous pseudomonassmell noted. With mild moist appearance without erythema. Cleansed well with copious amount of hydrogen peroxide. Recommend continue cleansing with soap and water and hydrogen peroxide over the next 72 hours. Patient to dry area thoroughly every day. Psychiatric: Mood and Affect: Mood normal. Behavior: Behavior normal. Vitals and nursing note reviewed. Exam conducted with a lockstitch lining maker present. Vitals: Estimated body mass index is 41.47 kg/m as calculated from the following: Height as of 05/08/24: 5' 7 . Weight as of this encounter: 264 lb 12.8 oz. BP: 120/76 Patient's last menstrual period was 04/06/2024. ASSESSMENT & PLAN ICD-10-CM 1. Encounter for visit Z39.2 2. S/P section Z98.891 Patient presents today for a one week postop section check. Patient is doing well with minor complaints of pain. Incision has been noted as healing well with concerns for pseudomonas. Incision cleansed today with hydrogen peroxide and instructed on cleansing incisional site and how to keepsite dry and free from infection. Follow Up: Patient is to return in 5 weeks for 6 week evaluation. Documented by Kali Woodward NP on behalf of: Kali Woodward NP documented in this encounterSaint Mary's Hospital of Blue [id number] History of Present illness Narrative* Bailey Morenita, WILLIE - 12/25/2024 1:30 PM EDT Reason for Appointment: Patient ID: Sherly Erickson [...] nursing note reviewed. Exam conducted with a lockstitch lining maker present. Vitals: Estimated body mass index is 45.11 kg/m as calculated from the following: Height as of 05/08/24: 5' 7 . Weight as of this encounter: 288 lb. BP: 130/82 Patient's last menstrual period was 04/06/2024. ASSESSMENT & PLAN ICD-10-CM 1. Third trimester Z34.93 POCT urinalysis dipstick manually resulted 2. 37 weeks gestation of Z3A.37 Return OB: Patient presents today for a routine obstetrics appointment. Patient is currently 37w4d . Patient states she is doing well but has complaints of being tired due to current . Patient has verbalizes frequent movement. labor precautions was discussed/given and patient was instructed to perform kick counts three times a day. Pt is scheduled for section 12/28/24. Orders Placed This Encounter Procedures POCT urinalysis dipstick manually resulted Follow Up: Patient is to return to office in 1 week for postop c/s section. Cesareasn section Tuesday Documented by Bailey Xavier LPN on behalf of: Cole Alonso DO documented in this encounterSaint Mary's Hospital of Blue SpringsSchsouzhck81-11-4665 History of Present illness Narrative* Bailey Xavier LPN - 12/18/2024 1:30 PM EDT Reason for Appointment: Patient ID: Sherly Erickson [...] nursing note reviewed. Exam conducted with a lockstitch lining maker present. Vitals: Estimated body mass index is [...] for two weeks. Discussed trial of labor vscesarean- pt will be scheduled for c section on 12/28/24 Orders Placed This Encounter Procedures CULTURE, GROUP B STREP WITH SUSCEPTIBLITY POCT urinalysis dipstick manually resulted Follow Up: Patient is to return to office in 1 week for routine OB appointment Documented by Bailey Xavier LPN on behalf of: Cole Alonso DO documented in this encounterSaint Mary's Hospital of Blue [id number] History of Present illness Narrative* Bailey Xavier LPN - 12/11/2024 1:30 PM EDT Reason for Appointment: Patient ID: Sherly Erickson [...] nursing note reviewed. Exam conducted with a lockstitch lining maker present. Vitals: Estimated body mass index is [...] of: Cole Alonso DO documented in this encounterSaint Mary's Hospital of Blue SpringsMbspmlpzpm27-49-1820 History of Present illness Narrative* NITISH Rojas - 12/04/2024 8:40 AM EDT Reason for Appointment: Patient ID: Sherly Erickson [...] 3. Gestational diabetes mellitus (GDM) affecting O24.419 OB follow up transabdominal approach 4. Gestational diabetes mellitus (GDM), antepartum, gestational diabetes method of control unspecified O24.419 insulin NPH-insulin regular (NovoLIN) (70-30) 100 UNIT/ML injection insulin NPH, Isophane, (HumuLIN N,NovoLIN N) 100 UNIT/ML injection insulin syringe 29G X 1/2 0.5 [facility]: Patient presents today for a [...] behalf of: NITISH Rojas documented in this encounterSaint Mary's Hospital of Blue [id number] NoteBelle[facility] Note Reason for cardiology [...] Rfl: OneTouch Delica Plus Lancet 30 gauge [facility] [place], , Disp: , Rfl: OneTouch Ultra Test strip, , Disp: , Rfl: OneTouch Ultra2 Meter mis, , Disp: , Rfl: 8-VGAF-THDOG ACID-OM3 ORAL, Take by mouth., Disp: , [...] and she was starte (more content not included)...[facility]03-20-2025 History of Present illness Narrative* Nieves Aranda CMA - 11/22/2024 11:30 AM EDT Headache/epigastric pain/blurry vision/swelling? No Cramping/contractions? No Abnormal vaginal discharge? No Spotting/vaginal bleeding? No Loss or gush of fluid like your water may have broken? No Do you have cats at home? Yes Do you change the litter box (reason: risk of toxoplasmosis)? Sometimes Genetic testing done this here or other office? no Have you been seen here at [facility] in a previous ? No Recent ER visits or hospitalizations? No Bring blood sugar log or meter with you today? (Please bring them with you for every visit at [facility]) no Flu vaccine (Jul-November)? No Any concerns that you would like me to mention to the provider today? No * Ahmet Soler MD - 11/22/2024 11:30 AM EDT REASON FOR TELEMEDICINE VIDEO CONSULTATION: Large for [...] mg total) by mouth in the morning., Disp:, Rfl: ondansetron (ZOFRAN) 4 mg tablet, Take 1 tablet (4 mg total) by mouth every 6 (six) hours as neededfor nausea or vomiting., Disp: , Rfl: blood sugar diagnostic (glucose blood) strip, Check blood glucose using test strips fasting and 1 hour after each meal. Four to 5 times a day per insurance preferences, Disp: 100 strip, Rfl: 2 blood-glucose meter misc, Check blood glucose using meter. Dispense per insurance preference, Disp:1 each, Rfl: 0 clotrimazole (MYCELEX) 10 mg [...] and the other consultants, we search on [employer] and all the available care everywhere epic I did review all the imaging studies of the patient available on EMR, ordered by the primary care physician and the other aerodynamic consultant HABITS: Patient activity no restrictions, diet [...] high, please refer the patient back to [facility] for formal diabetes management 5. 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 Patient does not have appointment scheduled with us. Thank you for allowing me to participate in Sherly Erickson . If there any questions please do not hesitate to contact us. Sincerely, AHMET SOLER MD Video Visit via Real-time Synchronous Audiovisual Provider Location: [facility] AT [address] [id number] Patient Location: Other Patient Location Remote Sensing Engineer: None Video Visit Consent Statement: I discussed risks, benefits, and alternatives of a real-time synchronous audiovisual consultation with the patient (and any accompanying persons) including the risks that the patient's personal health details and medical records will be discussed over real-time, synchronous, interactive video/audio/telecommunication technology, the visit will not be recorded withoutthe express consent of both the provider and the patient, and that there are some limitations compared to lmpk-fz-wmig evaluations. We elected to proceed. documented in this encounterGalion [facility] Hospital03-18-2025 History of Present illness Narrative* Bailey Morenita, WILLIE - 11/20/2024 8:30 AM EDT Reason for Appointment: Patient ID: Sherly Erickson [...] nursing note reviewed. Exam conducted with a lockstitch lining maker present. Vitals: Estimated body mass index is [...] three times a day. Pt return to [facility] on the for followup anatomy scan. Pt second BP in office was 118/86. No orders of the defined types were placed in this encounter. Follow Up: Patient is to return to office in 2 week for routine OB appointment. Documented by Bailey Xavier LPN on behalf of: Cole Alonso DO documented in this encounterSaint Mary's Hospital of Blue [id number] History of Present illness Narrative* NITISH Rojas - 11/06/2024 8:50 AM EST Reason for Appointment: Patient ID: Sherly Erickson [...] behalf of: NITISH Rojas documented in this encounterSaint Mary's Hospital of Blue [id number] NoteBellevue [facility] Clinic Note Reason for cardiology [...] mouth in the morning., Disp: , Rfl: 4-KNGI-QJJZR ACID-OM3 ORAL, Take by mouth., Disp: , [...] 4 to 6 weeks Angel Luis Evans MD,FACCUniversity of Houston Methodist [facility]02-17-2025 History of Present illness Narrative* Rose Latham, WILLIE - 10/22/2024 2:50 PM EST Reason for Appointment: Patient ID: Sherly Erickson [...] nursing note reviewed. Exam conducted with a lockstitch lining maker present. Vitals: Estimated body mass index is [...] NST/BPP to have started. Orders sent to [facility] and [facility] Hospital to reach out to patient to schedule. Patient to return to clinic in 2 weeks for routine OIB appointment. Documented by Rose Latham LPN on behalf of: Cole Alonso DO documented in this encounterSaint Mary's Hospital of Blue SpringsSrdovbhzrt03-06-1202 History of Present illness Narrative* NITISH Rojas - 10/08/2024 1:30 PM EST Reason for Appointment: Patient ID: Sherly Erickson is a 24 y.o. female who presents for Routine Visit Patient presents today for Return OB appointment. MEDICATIONS Current Outpatient Medications Medication Instructions clotrimazole (Mycelex) 10 MG jacob 1 lozenge(s), Oral, 5x/Day, x 10 day(s), # 50 lozenge(s), 0 Refill(s), 10/16/24 8:59:00 AM LEAD BI DEVELOPER, Pharmacy: [facility] [id number], 1 lozenge(s) Oral 5x/Day,x10 day(s), 170.18, cm, [...] behalf of: NITISH Rojas documented in this encounterSaint Mary's Hospital of Blue [id number] NotePatient Education Materials Follows: Otitis Media, Adult Otitis media occurs [...] Follow these instructions at home: ? Take syxc-clb-zwbzxxu and prescription medicines only as told by [...] provider. Document Revised: 11/30/2021 Document Reviewed: 11/30/2021 Do It Original Patient Education ? 2023 [employer]. Infectious Disease Oral Thrush, Adult Oral thrush, [...] has difficulty fighting infection (more content not included)...[facility] HospitalCceiwuoz17-99-8324 NotePatient Education Materials Follows:Disease Pharyngitis Pharyngitis is inflammation of the [...] history and a physical exam. Your health careprovider will ask you questions about your illness and your symptoms. A swab of your throat may be done to check for bacteria (rapid strep test). Other lab tests may also be done, depending on the suspected cause, but these are rare. How is this treated? Many times, treatment is not needed for this condition. Pharyngitis usually gets better in 3?4 dayswithout treatment. Bacterial pharyngitis may be treated with antibiotic medicines. Follow these instructions at home: Medicines ? Take mzrz-pmi-isgcbhu and prescription medicines only as told by [...] and water are not available, use hand regulatory process manager. ? Do not touch your eyes, [...] symptoms may represent a (more content not included)...[facility] 09-20-2024 Telephone encounter Note* Telephone Encounter - Denise Smith - 09/20/2024 3:09 PM EST Called patient lmom to call office for sooner appt... we have them available. Thank you [id number] Miscellaneous Notes* Telephone Encounter - Denise Smith - 09/20/2024 3:09 PM EST Called patient lmom to call office for sooner appt... we have them available. Thank you documented in this [id number] History of Present illness Narrative* Rose Latham LPN - 09/10/2024 2:00 PM EST Reason for Appointment: Patient ID: Sherly Erickson [...] nursing note reviewed. Exam conducted with a lockstitch lining maker present. Vitals: Estimated body mass index is [...] first in first trimester Z34.01 Rapid drug screen,urine Rapid drug screen, urine 3. Second trimester Z34.92 4. 22 weeks gestation of Z3A.22 Patient presents today for a routine obstetrics appointment. Patient is currently 22w3d with a Estimated Date of Delivery: 01/11/25. Patient to return to clinic in 4 weeks for routine OB care. Documented by Rose Latham LPN on behalf of: Cole Alonso DO documented in this encounterSaint Mary's Hospital of Blue SpringsOpbbwwkueb04-88-1500 History of Present illness Narrative* NITISH Rojas - 08/08/2024 10:50 AM EST Reason for Appointment: Patient ID: Sherly Erickson [...] of: Cole Alonso DO documented in this encounterSaint Mary's Hospital of Blue [id number] History of Present illness Narrative* Bailey Xavier, ACADEMIC ADMINISTRATOR - 07/10/2024 10:10 AM EST Reason for Appointment: Patient ID: Sherly Erickson [...] nursing note reviewed. Exam conducted with a lockstitch lining maker present. Vitals: Estimated body mass index is [...] or undercooked meat, and [facility]. Patient has been consulted regarding any further do's and don'tsof . Patient voiced understanding and all questions and concerns were answered. Pt to start baby aspirin daily. Orders Placed This Encounter Procedures POCT urinalysis dipstick manually resulted Follow Up: Patient is to return in 4 weeks for routine OB appointment. Documented by Bailey Xavier LPN on behalf of: Cole Alonso DO documented in this encounterSaint Mary's Hospital of Blue SpringsMlxecvcqen89-09-1083 NotePatient Education Materials Follows:and Gynecology Vaginitis Vaginitis is irritation and [...] and use condoms. General instructions ? Take bjaw-hgq-dqjwjrd and prescription medicines only as told by your doctor. ? If you were prescribed an antibiotic medicine, take or use it as told by your doctor. Do not stoptaking or using it even if you start to feel better. ? Keep all follow-up visits. How is this prevented? ? Do not use things that can irritate the vagina, such as fabric softeners. Avoid these products ifthey are scented: ? Sprays. ? Detergents. ? [...] provider. Document Revised: 02/19/2021 Document Reviewed: 02/19/2021 Do It Original Patient Education ? 2023 [employer].[facility] [id number] History of Present illness Narrative* Bernadette Reeder MA - 06/07/2024 1:00 PM EDT Reason for Appointment: Patient ID: Sherly Erickson [...] Vag-Spont Obstetric Comments Last pap smear 12/26/19 JOSES[place] w/Dr. Leblanc Current Medications: has a current [...] both done at the same time at [facility] at 10 weeks . Pt desires zofran due to nausea in this . Follow Up: Patient is to have labs drawn at directed and return to office for initial OB appointment with provider. Patient may call office as needed with any concerns or questions. Nurse Visit Completed by: Bernadette Reeder MA documented in this encounterSaint Mary's Hospital of Blue SpringsUvqbwrbkjc14-66-5440 NoteEducation Materials Orthopedics Muscle Strain A muscle strain, [...] not too tight. General instructions ? Take nrhm-bpm-vxqeoim and prescription medicines only as told by [...] or tobacco. If you need help quitting, askyour doctor. ? Ask your doctor when it [...] provider. Document Revised: 11/09/2021 Document Reviewed: 11/09/2021 Do It Original Patient Education ? 2023 [employer]. Sciatica Sciatica is pain, weakness, tingling, or [...] bones (pelvis). ? . (more content not included)...[facility] [id number] Note Patient Education Materials Follows:[facility] HospitalWiffdeph90-22-5486 History of Present illness Narrative* Bailey XavierWILLIE - 05/08/2024 11:20 AM EDT Reason for Appointment: Patient ID: Sherly Erickson [...] of: Cole Alonso DO documented in this encounterSaint Mary's Hospital of Blue SpringsZrjdaxytxx00-26-9014 History of Present illness Narrative* Jessica Mary - 04/24/2024 2:34 PM EDT Images from the original note were not included. documented in this [id number] History of Present illness Narrative* Rose Latham LPN - 10/06/2023 8:40 AM EST Reason for Appointment: Patient ID: Sherly Erickson [...] nursing note reviewed. Exam conducted with a lockstitch lining maker present. Vitals: Estimated body mass index is 38.28 kg/m as calculated from the following: Height as of this encounter: 5' 7 . Weight as of this encounter: 244 lb 6.4 oz. BP: 120/72 Patient's last menstrual period was 09/21/2023. Assessment/Plan Encounter Diagnosis Name Primary? Irregular periods/menstrual cycles Patient presents today for new patient appointment to discuss irregular cycles. Patient voiced thatsravane has heavy cycles and requires her to [...] and medication was sent to [facility] in [place]. Documented by Rose Latham LPN on behalf of: Cole Alonso DO documented in this encounterNOAR HealthcareEvaluation note* Diagnosis Irregular periods/menstrual cycles PCOS (polycystic ovarian [...] Polycystic ovaries [facility] Diagnosis Third trimester state, [...] HealthcareEvaluation note* Diagnosis Third trimester state, incidental 37 weeks gestation of documented [facility]* Diagnosis Encounter for visit S/P section Other postprocedural status documented in this encounter [facility]* Diagnosis Yeast infection- Primary 6 weeks follow-up documented in this encounter [facility] HealthcareInstructionsNot on filedocumented in this encounterProLicking Memorial Hospital SystemInstructionsNot on filedocumented in this encounterProLicking Memorial Hospital System Summary Purpose Family History [...] Advanced Directives Records Found Reason for Referral SpecialtyDiagnoses / ProceduresReferred By ContactReferred To ContactOral Surgery Diagnoses Abnormal tooth eruption Impacted third molar tooth Kenya Richter, DDS [address] [place] [address] Referral IDStatusReasonStart DateExpiration DateVisits RequestedVisits [id number] Scheduling Instructions If your in-clinic procedure was [...] your procedure, you will be contacted with feo-bi-ffafofy costs or next steps. All self-pay payments [...] the procedure: You also MUST have a salesperson driver/escort >18yrs old present to take you home after. If your provider has proposed an IV sedation procedure: Please refer to the instructions given to you at your consult appointment. You will receive a call from a nurse roughly 1 week prior to your procedure to go over any/all instructions. QuestionAnswer What is the procedure for? Dental Please specify: Extractions Please specify: Routine Extraction, Partial Bony Impacted Routine Extraction--please list tooth number(s): #1, #16 Partial Bony Impacted--please list tooth number(s): #17, #32 Is Sedation Needed? Local Anesthesia Procedure Length: 60 Which area is this procedure for? Clinic Additional Source Comments INFORMATION SOURCE (unrecogn ized section and content) DATE CREATED AUTHOR 01/08/2022 [facility] DATE CREATED AUTHOR AUTHOR'S ORGANIZ ATION 09/23/2024 [facility] DATE CREATED AUTHOR AUTHOR'S ORGANIZ ATION 11/24/2024 [facility] DATE CREATED AUTHOR AUTHOR'S ORGANIZ ATION 11/24/2024 [facility] DATE CREATED AUTHOR AUTHOR'S ORGANIZ ATION 12/11/2024 [facility] DATE CREATED AUTHOR AUTHOR'S ORGANIZ ATION 01/12/2025 [facility] DATE CREATED AUTHOR AUTHOR'S ORGANIZ ATION 02/07/2025 [facility] EPIC Reason for Visit (unrecogniz ed section and content) ReasonCommentsDiscuss cyclesReasonCommentsAmenorrheaReasonCommentsRoutine VisitReasonCommentsWell Women VisitRoutine VisitSTI Screening ReasonCommentsAbdominal PainReasonCommentspolyhydramniosReasonCommentsRoutine VisitReasonCommentsPostpartum UwzlYknoxyMkchcyvf3bm Post Care Teams (unrecognized sec tion and content) Team MemberRelationshipSpecialtyStart DateEnd Date Radha Mendoza MD [address] [place] [address] PCP - GeneralPediatrics2/09/28Team MemberRelationshipSpecialtyStart DateEnd Date Radha Mendoza MD [address] [place] [address] PCP - GeneralPediatrics2Team MemberRelationshipSpecialtyStart DateEnd Date Radha Mendoza MD [address] [place] [address] PCP - GeneralPediatrics2Team MemberRelationshipSpecialtyStart DateEnd Date Radha Mendoza MD [address] [place] [address] PCP - GeneralPediatrics2Team MemberRelationshipSpecialtyStart DateEnd Date Radha Mendoza MD [address] [place] [address] PCP - GeneralPediatrics2Team MemberRelationshipSpecialtyStart DateEnd Date Radha Mendoza MD [address] [place] [address] PCP - GeneralPediatrics2Team MemberRelationshipSpecialtyStart DateEnd Date Radha Mendoza MD [address] [place] [phone] PCP - GeneralPediatrics2/24Team MemberRelationshipSpecialtyStart DateEnd Date Radha Mendoza MD [address] [place] [address] PCP - GeneralPediatrics2/24Team MemberRelationshipSpecialtyStart DateEnd Date Radha Mendoza MD [address] [place] [address] PCP - GeneralPediatrics2/09/28Team MemberRelationshipSpecialtyStart DateEnd Date Radha Mendoza MD [address] [place] [address] PCP - GeneralPediatrics2/09/28Team MemberRelationshipSpecialtyStart DateEnd Date Radha Mendoza MD [address] [place] [address] PCP - GeneralPediatrics2/24Team MemberRelationshipSpecialtyStart DateEnd Date Radha Mendoza MD [address] [place] [address] PCP - GeneralPediatrics2/24Team MemberRelationshipSpecialtyStart DateEnd Date Radha Mendoza MD [address] [place] [address] PCP - GeneralPediatrics2/24Team MemberRelationshipSpecialtyStart DateEnd Date Radha Mendoza MD [address] [place] [address] PCP - GeneralPediatrics2/24Team MemberRelationshipSpecialtyStart DateEnd Date Radha Mendoza MD [address] [place] [address] PCP - GeneralPediatrics2/24Team MemberRelationshipSpecialtyStart DateEnd Date Radha Mendoza MD [address] [place] [address] PCP - GeneralPediatrics2/09/28Team MemberRelationshipSpecialtyStart DateEnd Date Radha Mendoza MD [address] [place] [address] PCP - GeneralPediatrics2/24Team MemberRelationshipSpecialtyStart DateEnd Date Radha Mendoza MD [address] [place] [phone] PCP - GeneralPediatrics2/24Team MemberRelationshipSpecialtyStart DateEnd Date Radha Mendoza MD [address] [place] [address] PCP - GeneralPediatrics2/24Team MemberRelationshipSpecialtyStart DateEnd Date Radha Mendoza MD [address] [place] [address] PCP - GeneralPediatrics2/24Team MemberRelationshipSpecialtyStart DateEnd Date Radha Mendoza MD [address] [place] [phone] PCP - GeneralJasper Memorial Hospitaliatrics2 FOR RECORDS PERTAINING TO PATIENTS WHO ARE [...] BE BASED ON THE PRIMARY CLINICAL RECORDS. [facility] HospitalSwift Navigation [facility]. provides no warranty or guarantee of the accuracy or completeness of information in this document.
--- OUTSIDE RECORDS SUMMARY | 2025-08-15 19:27 | XMS_ITS | Clinical Summary ---
Author Organization [facility] Address [address] [place] [address] Care Team Providers Care Elevator Examiner And Adjuster Name Role Phone Anthony Gomez MD Primary Care Provider [phone] Allergies No known active allergies Medications MedicationSigDispense QuantityRefillsLast FilledStart DateEnd DateStatus aspirin 81 MG EC tablet Take 81 mg by mouth in the morning.08/15/2025Discontinued MV & Min w/FA-DHA ( GUMMIES PO) Take by mouth08/15/2025Discontinued nystatin (Mycostatin) 755382 UNIT/GM powder Indications:Yeast infectionApply topically in the morning and in the evening and before bedtime. 15 g Discontinued Active Problems ProblemNoted DateDiagnosed DatePCOS (polycystic ovarian syndrome)11/28/2023 Encounter to discuss test epsmrjo6911/03/2023Irregular periods/menstrual cycles 11/03/2023Insulin dwgtdlzavg30/29/2024 Encounters DateTypeDepartmentCare EhtdIxuwiaiwuuq79/11/2025 10:00 AM ESTOffice Visit [facility] [address] [facility] [place] [address] Emily Ballesteros PA Well woman exam with routine gynecological exam; Missed menses; Luubmpjapc70/11/2025amboo flowsheet [facility] [address] [place] [address] Emily Ballesteros PA 08/08/2025Travelfrom Last 3 Months Family History Medical HistoryRelationNameCommentsDepressionFatherHypertensionFatherDiabetes Maternal GrandmotherBrenda RollinsDiabetesMotherDawn HavensEndometriosisMother Magnolia HavensLeukemiaMotherDawn Havensas a childRelationNameStatusCommentsBrother u5InyowiSzmcaImjokkor GrandmotherBrenda RollinsMotherDawn YqfxfvFttkuDdnyhlt1Iyk Alive Social History Tobacco UseTypesPacks/DayYears UsedDateSmoking Tobacco: FormerCigarettes Smokeless Tobacco: Never Tobacco Cessation:Counseling Given: Not Answered Alcohol UseStandard Drinks/WeekCommentsNever0 (1 standard drink = 0.6 oz pure alcohol)caffeine: 1-2 cups per dayCommentsUnknownSex and Gender InformationValueDate RecordedSex Assigned at NppxaMrnnup26/04/2025 9:10 AM EST Legal AybJmljem96/15/2023 10:12 PM EDTGender TdllebpnQjraee38/04/2025 9:10 AM ESTSexual OrientationNot on file Last Filed Vital Signs Vital SignReadingTime TakenCommentsBlood Dmamfrkg136/8208/15/2025 10:05 AM EST Pulse--Temperature--Respiratory Rate--Oxygen Saturation--Inhaled Oxygen Concentration--Xfadms614 kg (266 lb 1.9 oz)08/15/2025 10:05 AM GAWAaavbp004.2 cm (5' 7 )05/08/2024 11:32 AM EDTBody Mass Index41.68005/08/2024 11:32 AM EDT Plan of Treatment DateTypeDepartmentCare Team (Latest Contact Info)Tjynhvpipck08/08/2026 8:00 AM ESTAncillary Procedure [facility] [address] [place] [address] 08/21/2026 10:00 AM ESTProcedure Visit [facility] [address] [place] [address] Emily Ballesteros PA [address] [facility] [address] [place], [place] [id number] Health MaintenanceDue DateLast DoneCommentsCOVID-19 Vaccine (2024- season) 2025Influenza Vaccine (#1)/04/2020Pneumococcal Vaccine: Pediatrics (0 to 5 Years) and At-Risk Patients (6 to 64 Years)Aged OutNo longer eligible based on patient's age to complete this topic Procedures Procedure NamePriorityDate/TimeAssociated DiagnosisCommentsPOCT , URINE Tavjhjn3908/15/2025 10:14 AM EST Missed menses from Last 3 Months Results * POCT , urine manually resulted (08/15/2025 10:14 AM EST)Component ValueRef RangeTest MethodAnalysis TimePerformed AtPathologist SignaturePreg Test, UrNegativeNegativeSpecimen (Source)Anatomical Location / Laterality Collection Method / VolumeCollection TimeReceived EectPhieb62/11/2025 10:14 AM EST Narrative Authorizing ProviderResult TypeResult StatusAmy Kent HospitalOINT OF CARE TEST ENTER/EDIT ORDERABLESFinal Result from Last 3 Months Insurance Care Teams Team MemberRelationshipSpecialtyStart DateEnd Date Anthony Gomez MD [address] [place] [address] PCP - GeneralPediatrics2/09/28
--- OUTSIDE RECORDS SUMMARY | 2025-08-15 19:27 | XMS_ITS | Encounter Summary ---
Author Organization [facility] Address [address] [place] [address] Care Team Providers Care Cold Water Machine Operator Name Role Phone Anthony Gomez MD Primary Care Provider [phone] Encounter Details DateTypeDepartmentCare Team (Latest Contact Info)Omblnxzazai92/04/2025Travel Social History Tobacco UseTypesPacks/DayYears UsedDateSmoking Tobacco: FormerCigarettes Smokeless Tobacco: NeverAlcohol UseStandard Drinks/WeekCommentsNever0 (1 standard drink = 0.6 oz pure alcohol)caffeine: 1-2 cups per dayComments NoSex and Gender InformationValueDate RecordedSex Assigned at BirthFemale 08/08/2025 9:10 AM ESTLegal VexBaqcvm56/15/2023 10:12 PM EDTGender Identity Jfabjn5808/08/2025 9:10 AM ESTSexual OrientationNot on filedocumented as of this encounter Plan of Treatment DateTypeDepartvon [facility] women's hospitalCare Team (Latest Contact Info)Gcfgoaicqyi77/08/2026 8:00 AM ESTAncillary Procedure [facility] [address] [place] [address] 08/21/2026 10:00 AM ESTProcedure Visit [facility] [address] [place] [address] Emily Ballesteros PA [address] [place], [place] [address] documented as of this encounter Visit Diagnoses Not on filedocumented in this encounter Care Teams Team MemberRelationshipSpecialtyStart DateEnd Date Anthony Gomez MD [address] [place] [address] PCP - GeneralPediatrics2/09/28documented as of this encounter
== END 2025-08-15 19:22 | disposition home or self-care (01) ==
LOC: LAB 19:21
PROVIDERS: PCP Family Medicine; Visit Provider Physician Assistant
DX: Z01.419 Encounter for gynecological examination (general) (routine) without abnormal findings (principal)
CPT/HCPCS: 88175

== ENCOUNTER 2025-08-23 08:32 | Outpatient (OUT) | payer MEDICAID, SELFPAY ==
--- OUTSIDE RECORDS SUMMARY | 2025-08-15 10:00 | XMS_ITS | Encounter Summary ---
Author Organization [facility] Address [address] [place] [address] Care Team Providers Care Residential Substance Abuse Counselor Name Role Phone Anthony Gomez MD Primary Care Provider [phone] Reason for Visit * ReasonCommentsWell Women Visit Encounter Details DateTypeDepartmentCare Team (Latest Contact Info)Fdoggvkozmu85/11/2025 10:00 AM ESTOffice Visit [facility] [address] [address] Emily Ballesteros PA [address] [place], [facility]11 Well woman exam with routine gynecological exam; Missed menses; Amenorrhea Social History Tobacco UseTypesPacks/DayYears UsedDateSmoking Tobacco: FormerCigarettes Smokeless Tobacco: NeverAlcohol UseStandard Drinks/WeekCommentsNever0 (1 standard drink = 0.6 oz pure alcohol)caffeine: 1-2 cups per dayComments UnknownSex and Gender InformationValueDate RecordedSex Assigned at BirthFemale 08/08/2025 9:10 AM ESTLegal LrrZdhdgq62/15/2023 10:12 PM EDTGender Identity Qcjdmf3808/08/2025 9:10 AM ESTSexual OrientationNot on filedocumented as of this encounter Last Filed Vital Signs Vital SignReadingTime TakenCommentsBlood Fjrsvhzo602/8208/15/2025 10:05 AM EST Pulse--Temperature--Respiratory Rate--Oxygen Saturation--Inhaled Oxygen Concentration--Larvzj220 kg (266 lb 1.9 oz)08/15/2025 10:05 AM ESTHeight--Body Mass Index41.6809 11:32 AM EDTdocumented in this encounter Progress Notes * NITISH Rojas - 08/15/2025 10:00 AM EST Reason for Appointment: Patient ID: Arcelia Astudillo is a 25 y.o. female who presents for [facility] Women Visit Patient presents today for Annual [...] nursing note reviewed. Exam conducted with a claims analyst present. Vitals: Estimated body mass index is [...] Plan of Treatment DateTypeDepartmentCare Team (Latest Contact Info)Iigeakfuyrr23/08/2026 8:00 AM ESTAncillary Procedure [facility] [address] [place] [address] 08/21/2026 10:00 AM ESTProcedure Visit [facility] [address] [place] [address] Emily Ballesteros PA [address] [place] [address] NameTypePriorityAssociated DiagnosesOrder SchedulePap SmearPathology and CytologyRoutine Well woman exam with routine gynecological exam Ordered: 08/15/2025TSHLabRoutine Amenorrhea Ordered: 08/15/2025BC and differentialLabRoutine Amenorrhea Ordered: 08/15/2025ProlactinLabRoutine Amenorrhea Ordered: 08/15/2025hCG, quantitative, pregnancyLabRoutine Amenorrhea Ordered: 08/15/2025Hemoglobin T3kBnlVjvrvtc Amenorrhea Ordered: 08/15/2025US Pelvis w/ TVImagingRoutine Amenorrhea Expected: 08/15/2025, Expires: 08/15/2026omprehensive metabolic panelLabRoutine Amenorrhea Ordered: 08/15/2025documented as of this encounter Procedures Procedure NamePriorityDate/TimeAssociated DiagnosisCommentsPOCT , URINE Wuxsqex7908/15/2025 10:14 AM EST Missed menses documented in this encounter Results * POCT , urine manually resulted (08/15/2025 10:14 AM EST)Component ValueRef RangeTest MethodAnalysis TimePerformed AtPathologist SignaturePreg Test, UrNegativeNegativeSpecimen (Source)Anatomical Location / Laterality Collection Method / VolumeCollection TimeReceived AhlgMgruu07/11/2025 10:14 AM EST Narrative Authorizing ProviderResult TypeResult StatusAmy [place] PAPOINT OF CARE TEST ENTER/EDIT ORDERABLESFinal Result documented in this encounter Visit Diagnoses Diagnosis Well woman exam with routine gynecological exam Routine gynecological examination Missed menses Amenorrhea Absence of menstruation documented in this encounter Care Teams Team MemberRelationshipSpecialtyStart DateEnd Date Anthony Gomez MD [address] [place] [id number] PCP - GeneralPediatrics2/09/28documented as of this encounter
--- OUTSIDE RECORDS SUMMARY | 2025-08-23 08:36 | XMS_ITS | Clinical Summary ---
Author Organization [facility] Address [address] [place] [address] Care Team Providers Care Maintenance Shop Welder Name Role Phone Anthony Gomez MD Primary Care Provider [phone] Allergies No known active allergies Medications MedicationSigDispense QuantityRefillsLast FilledStart DateEnd DateStatus aspirin 81 MG EC tablet Take 81 mg by mouth in the morning.08/15/2025Discontinued MV & Min w/FA-DHA ( GUMMIES PO) Take by mouth08/15/2025Discontinued nystatin (Mycostatin) 099301 UNIT/GM powder Indications:Yeast infectionApply topically in the morning and in the evening and before bedtime. 15 g Discontinued Active Problems ProblemNoted DateDiagnosed DatePCOS (polycystic ovarian syndrome)11/28/2023 Encounter to discuss test anpvyzm9311/03/2023Irregular periods/menstrual cycles 11/03/2023Insulin uewoxkdwal95/29/2024 Encounters DateTypeDepartmentCare YpzkBxezeypemfe19/11/2025 10:00 AM ESTOffice Visit [facility] [address] [facility] [place] [address] Emily Ballesteros PA Well woman exam with routine gynecological exam; Missed menses; Vseeebubha42/11/2025linisync Result Encounter [facility] External Department Unsolicited Emily Ballesteros PA 08/15/2025amboo flowsheet [facility] [address] [place] [address] Emily Ballesteros PA 08/08/2025Travelfrom Last 3 Months Family History Medical HistoryRelationNameCommentsDepressionFatherHypertensionFatherDiabetes Maternal GrandmotherBrenda RollinsDiabetesMotherDawn HavensEndometriosisMother Magnolia HavensLeukemiaMotherDawn Havensas a childRelationNameStatusCommentsBrother n7NaznkbMrovhYavcwcoq GrandmotherBrenda RollinsMotherDawn LurmshKhmwaXcyzsmn4Hvu Alive Social History Tobacco UseTypesPacks/DayYears UsedDateSmoking Tobacco: FormerCigarettes Smokeless Tobacco: Never Tobacco Cessation:Counseling Given: Not Answered Alcohol UseStandard Drinks/WeekCommentsNever0 (1 standard drink = 0.6 oz pure alcohol)caffeine: 1-2 cups per dayCommentsUnknownSex and Gender InformationValueDate RecordedSex Assigned at CsuerSgatow49/04/2025 9:10 AM EST Legal IbwVbqqok11/15/2023 10:12 PM EDTGender RmbhdidrUgymqt38/04/2025 9:10 AM ESTSexual OrientationNot on file Last Filed Vital Signs Vital SignReadingTime TakenCommentsBlood Eydhxmyj907/8208/15/2025 10:05 AM EST Pulse--Temperature--Respiratory Rate--Oxygen Saturation--Inhaled Oxygen Concentration--Bbrcwt266 kg (266 lb 1.9 oz)08/15/2025 10:05 AM DUTWvcose279.2 cm (5' 7 )05/08/2024 11:32 AM EDTBody Mass Index41.68005/08/2024 11:32 AM EDT Plan of Treatment DateTypeDepartmentCare Team (Latest Contact Info)Ieviwspcnhr40/08/2026 8:00 AM ESTAncillary Procedure NOM[facility]win [facility] [address] [place] [address] 08/21/2026 10:00 AM ESTPro[place] [address] Emily Ballesteros PA [address] [place] [address] [place] [address] Health MaintenanceDue DateLast DoneCommentsCOVID-19 Vaccine (2024- season) 2025Influenza Vaccine (#1)Pneumococcal Vaccine: Pediatrics (0 to 5 Years) and At-Risk Patients (6 to 64 Years)Aged OutNo longer eligible based on patient's age to complete this topic Procedures Procedure NamePriorityDate/TimeAssociated DiagnosisCommentsPOCT , URINE Jhhatvp4808/15/2025 10:14 AM EST Missed menses IGP,APTIMA HPV,AGE KPOWCjsfvoz93/11/2025 9:57 AM EST from Last 3 Months Results * POCT , urine manually resulted (08/15/2025 10:14 AM EST)Component ValueRef RangeTest MethodAnalysis TimePerformed AtPathologist SignaturePreg Test, UrNegativeNegativeSpecimen (Source)Anatomical Location / Laterality Collection Method / VolumeCollection TimeReceived QswtUxnxl24/11/2025 10:14 AM EST Narrative Authorizing ProviderResult TypeResult StatusAmy Favian [facility] OF CARE TEST ENTER/EDIT ORDERABLESFinal Result * IGP,APTIMA HPV,AGE GDLN (08/15/2025 9:57 AM EST)ComponentValueRef RangeTest MethodAnalysis TimePerformed AtPathologist SignatureAGE GDLN ACOG TESTINGNote. TBHComment: ?? TESTS ? RESULT ??FLAG ??UNITS ?REF RANGE ??LAB ?? Clinician Provided Cytology Information ?? Source.............Cervix;Endocervix ?? No. of containers..01 ThinPrep Vial Age Algo ACOG Crystal... ??21-29 ? 01 ?FLAG LEGEND: ?L-Low Normal,H-High Normal,LL-Alert Low,HH-Alert High <-Panic Low,>-Panic High,A-Abnormal,AA-Critical Abnormal Performed at: 01 =G ?[facility] ?? [address] [place] ??[address] ?? Melissa García MD, IGP, RFX APTIMA HPV ASCUNote.TBHComment: ?? TESTS ? RESULT ??FLAG ??UNITS ?REF RANGE ??LAB DIAGNOSIS: ?02 ?? NEGATIVE FOR INTRAEPITHELIAL LESION OR MALIGNANCY. Specimen adequacy: ?02 ?? Satisfactory for evaluation. ??Endocervical and/or squamous metaplastic ?? cells (endocervical component) are present. Performed by: ? 02 ?? Laura Weaver Pediatrician/Medical Doctor (ASCP) . ? 02 Note: ? Note ?02 ?? The Pap smear is a screening test designed to aid in the ?? detection of premalignant and malignant conditions of the ?? uterine cervix. ??It is not a diagnostic procedure and ?? should not be used as the sole means of detecting cervical ?? cancer. ??Both false-positive and false-negative reports do ?? occur. Test Methodology: ? Note ?02 ?? This liquid based ThinPrep(R) pap test was interpreted ?? using the YellowPepper(R) Genius(TM) Cervical Algorithm whole ?? slide imaging system. . ? 02 ?? The HPV DNA reflex criteria were not met with this specimen ?? result therefore, no HPV testing was performed. ?FLAG LEGEND: ?L-Low Normal,H-High Normal,LL-Alert Low,HH-Alert High <-Panic Low,>-Panic High,A-Abnormal,AA-Critical Abnormal Performed at: 02 WB ?[facility] [place] ?? [address] [place], [place] ??[address] ?? Melissa García MD, Performed at: ??=G - [facility] [address] ??[id number] Network Security Administrator: Melissa García MD, Phone: ??[phone] Performed at: ??WB - [facility] [address] ??[id number] Network Security Administrator: Melissa García MD, Phone: ??[phone] Specimen (Source)Anatomical Location / LateralityCollection Method / Volume Collection TimeReceived Time08/15/2025 9:57 AM EST08/15/2025 7:26 PM EST Narrative [facility] - 08/20/2025 2:09 PM EST BRUSH-SPATULA CERVIX ENDOCERVIX Authorizing ProviderResult TypeResult StatusAmy Favian PAL BLOOD ORDERABLES Final ResultPerforming OrganizationAddressCity/State/ZIP CodePhone Number [facility]ITALISYCAP[facility] from Last 3 Months Insurance Care Teams Team MemberRelationshipSpecialtyStart DateEnd Date Anthony Gomez MD [address] [place] [address] PCP - GeneralPediatric10/06/23
--- OUTSIDE RECORDS SUMMARY | 2025-08-23 08:36 | XMS_ITS | Clinical Summary ---
Author Organization [facility] Address [address] [facility] [place] [address] Care Team Providers Care Small Order Cutter Name Role Phone Unavailable Primary Care Provider Unavailabl e Source Comments The following information is NOT included in Care Everywhere downloads:Psychiatric notes, ECG results, Cardiac Rehab notes, Pulmonary Function notes, data from SmartForms (includes but not limited toPregnancy data,audiograms, eye exams, pre-surgical evaluation notes, well-child exam data).[facility] Medications MedicationSigDispense QuantityRefillsLast FilledStart DateEnd DateStatus escitalopram (LEXAPRO) 10 MG tablet 10 mg.4Active metformin (GLUCOPHAGE-XR) 500 MG XR tablet Take 500 mg by mouth.4Active Active Problems ProblemNoted DateDiagnosed ClsqQnrtnnpnpo86/08/2025Elevated LFTs02/10/2025 Insulin hiymxnrhlv14/29/2024COS (polycystic ovarian syndrome)10/17/2023 Immunizations ImmunizationAdministration DatesNext DueDTP (CVX=01)11/01/1999,1998, 1998,1998DTaP, unspecified formulation (XQR=682)06/07/2002HPV, quadrivalent (Gardasil 4) (CVX=62)11/04/2015,02/15/2011Hep B (peds/adol, 3-dose) (CVX=08)1998,1998,1998Hib, unspecified formulation (CVX=17) 06/18/1999,1998,1998,1998Influenza, injectable, quadrivalent, preservative free (EQQ=677)06/12/2020MMR, Cpxogor-Siepw-Pwgeehg (CVX=03) 06/07/2002,06/18/1999Meningococcal conjugate (MCV4,Men-ACWY), Menactra (MCV4P) (LKI=810)11/04/2015Pneumococcal conjugate 7 valent (PCV7) (CNF=000)06/08/2001 Polio, inactivated (IPV) (CVX=10)06/07/2002Polio, unspecified formulation (CVX=89)12/02/1999,1998,1998Tdap (QER=326)11/19/2023,06/11/2020, 02/15/2011Varicella (Chickenpox) (CVX=21)07/25/2007,06/18/1999 Social History Tobacco UseTypesPacks/DayYears UsedDateSmoking Tobacco: Never Assessed CommentsUnknownSex and Gender InformationValueDate RecordedSex Assigned at Not on fileLegal GrrHspwyz80/23/2024 2:29 PM ESTGender IdentityNot on fileSexual OrientationNot on file Plan of Treatment Health MaintenanceDue DateLast DoneCommentsHepatitis C Krxzcheq21/01/2016 Hepatitis A (HAV) Vaccine (optional start 19+ years)2017Pap Smear 2019COVID-19 Vaccine ( season)2025Influenza Vaccine (#1) 51Tetanus (Td or Tdap) Oieyavx29, 06/11/2020, 02/15/2011Shingles (RZV) Vaccine (1 of 2)2048Hepatitis B (HBV) QnbxhcmYclmulugl72/03/1999, 1998, 1998Pneumococcal Vaccine(s)Aged Out06/08/2001No longer eligible based on patient's age to complete this topicHPV OkdewayZstdphyso17/01/2016, 02/15/2011HIV AjcfBwuiuijmk51/22/2020Tdap Booster Rknpgsefp49/16/2024, 06/11/2020, 02/15/2011MammographyDiscontinued Insurance * Guarantor: Praful Astudillo TypeRelation to PatientDate of BirthPhone Billing VevllthHxxqoiegmeazmIzge[address] [place] [address]
--- OUTSIDE RECORDS SUMMARY | 2025-08-23 08:36 | XMS_ITS | Encounter Summary ---
Author Organization [facility] Address [address] [place] [address] Care Team Providers Care Shale Planer Operator Helper Name Role Phone Anthony Gomez MD Primary Care Provider [phone] Encounter Details DateTypeDepartmentCare Team (Latest Contact Info)Qkhjfyponvu93/11/2025linisync Result Encounter [facility] External Department Unsolicited Emily Ballesteros PA [address] [place] [address] Social History Tobacco UseTypesPacks/DayYears UsedDateSmoking Tobacco: FormerCigarettes Smokeless Tobacco: NeverAlcohol UseStandard Drinks/WeekCommentsNever0 (1 standard drink = 0.6 oz pure alcohol)caffeine: 1-2 cups per dayComments UnknownSex and Gender InformationValueDate RecordedSex Assigned at BirthFemale 08/08/2025 9:10 AM ESTLegal BwfZzeobk97/15/2023 10:12 PM EDTGender Identity Eyxsgd4408/08/2025 9:10 AM ESTSexual OrientationNot on filedocumented as of this encounter Plan of Treatment DateTypeDepartmentCare Team (Latest Contact Info)Rojsesnnzaw69/08/2026 8:00 AM ESTAncillary [place] [id number] 08/21/2026 10:00 AM ESTProcedure Visit [facility] [address] [place] [address] Emily Ballesteros PA [address] [facility] [place] [address] documented as of this encounter Procedures Procedure NamePriorityDate/TimeAssociated DiagnosisCommentsIGP,APTIMA HPV,AGE IYLJTyebsro57/11/2025 9:57 AM EST documented in this encounter Results * IGP,APTIMA HPV,AGE GDLN (08/15/2025 9:57 AM [...] at: 01 =G ?[facility] ?? [address] [place] ??[phone] ?? Melissa García MD, IGP, RFX APTIMA HPV ASCUNote.TBHComment: ?? TESTS ? RESULT ??FLAG ??UNITS ?REF RANGE ??LAB DIAGNOSIS: ?02 ?? NEGATIVE FOR INTRAEPITHELIAL LESION OR MALIGNANCY. Specimen adequacy: ?02 ?? Satisfactory for evaluation. ??Endocervical and/or squamous metaplastic ?? cells (endocervical component) are present. Performed by: ? 02 ?? Laura Weaver Fabric Cutter (ASCP) . ? 02 Note: ? Note [...] pap test was interpreted ?? using the Revolv(R) The Optima(TM) Cervical Algorithm whole ?? slide imaging system. . ? 02 ?? The HPV DNA reflex criteria were not met with this specimen ?? result therefore, no HPV testing was performed. ?FLAG LEGEND: ?L-Low Normal,H-High Normal,LL-Alert Low,HH-Alert High <-Panic Low,>-Panic High,A-Abnormal,AA-Critical Abnormal Performed at: 02 WB ?[facility] ?? [address] [place], [place] ??[address] ?? Melissa García MD, Performed at: ??=G - [facility] [address] [place], [place] ??[id number] Juke Box Mechanic: Melissa García MD, Phone: ??[phone] Performed at: ??WB - [facility] [address] [place] ??[id number] Juke Box Mechanic: Melissa García MD, Phone: ??[phone] Specimen (Source)Anatomical Location / LateralityCollection Method / Volume Collection TimeReceived Time08/15/2025 9:57 AM EST08/15/2025 7:26 PM EST Narrative [facility] - 08/20/2025 2:09 PM EST BRUSH-SPATULA CERVIX ENDOCERVIX Authorizing ProviderResult TypeResult StatusAmy [facility] BLOOD ORDERABLES Final ResultPerforming OrganizationAddressCity/State/ZIP CodePhone Number [facility] TB documented in this encounter Visit Diagnoses Not on filedocumented in this encounter Care Teams Team MemberRelationshipSpecialtyStart DateEnd Date Anthony Gomez MD [address] [place] [id number] PCP - GeneralPediatrics2/09/28documented as of this encounter
--- OUTSIDE RECORDS SUMMARY | 2025-08-23 08:36 | XMS_ITS | Encounter Summary ---
Author Organization [facility] Address [address] [place] [address] Care Team Providers Care Speed Runner Name Role Phone Anthony Gomez MD Primary Care Provider [phone] Encounter Details DateTypeDepartmentCare Team (Latest Contact Info)Upnmikusgrk57/11/2025amboo flowsheet [facility] [address] [facility] [place] [place] [address] Emily Ballesteros PA [address] [facility] [address] [place], [facility] Social History Tobacco UseTypesPacks/DayYears UsedDateSmoking Tobacco: FormerCigarettes Smokeless Tobacco: NeverAlcohol UseStandard Drinks/WeekCommentsNever0 (1 standard drink = 0.6 oz pure alcohol)caffeine: 1-2 cups per dayComments UnknownSex and Gender InformationValueDate RecordedSex Assigned at BirthFemale 08/08/2025 9:10 AM ESTLegal VjqTfftac49/15/2023 10:12 PM EDTGender Identity Fkocwb3508/08/2025 9:10 AM ESTSexual OrientationNot on filedocumented as of this encounter Plan of Treatment DateTypeDepartmentCare Team (Latest Contact Info)Pxvgibxuooy20/08/2026 8:00 AM ESTAncillary Procedure [facility] [address] [place] [address] 08/21/2026 10:00 AM ESTProcedure Visit [facility] [address] [facility] [place] [address] Emily Ballesteros PA [address] [facility] [place] [address] documented as of this encounter Visit Diagnoses Not on filedocumented in this encounter Care Teams Team MemberRelationshipSpecialtyStart DateEnd Date Anthony Gomez MD [address] [place] [id number] PCP - GeneralPediatrics2/09/28documented as of this encounter
--- OUTSIDE RECORDS SUMMARY | 2025-08-23 08:36 | XMS_ITS | Clinical Summary ---
Author Organization [facility] Address [id number] [address] [place] [address] Care Team Providers Care Director Business Travel Name Role Phone Unavailable Primary Care Provider [...] Problems ProblemNoted DateDiagnosed DatePolyhydramnios affecting in third xtwauhzbb26/20/2025PCOS (polycystic ovarian syndrome)10/15/2024 Family History Medical HistoryRelationNameCommentsDepressionFatherHypertensionFatherDiabetes Maternal GrandmotherBrenda RollinsDiabetesMotherDawn HavensEndometriosisMother Magnolia HavensLeukemiaMotherDawn HavensRelationNameStatusCommentsFatherMaternal GrandmotherBrenda RollinsMotherDawn Renetta Social History Tobacco UseTypesPacks/DayYears UsedDateSmoking Tobacco: FormerCigarettes Smokeless Tobacco: Never Tobacco Cessation:Counseling Given: Not Answered Alcohol UseStandard Drinks/WeekCommentsNot Currently0 (1 standard drink = 0.6 oz pure alcohol)ChildcareAnswerDate BjjmlpnmLwnfmimoyCqgsyta14/30/2020Employment AnswerDate EksudwtrXpfzdvcifgYkdclpa69/30/2020Hunger ScreeningAnswerDate RecordedWithin the past 12 months we worried whether our food would run out before we got money to buy more.Never True11/22/2024Within the past 12 months the food we bought just didn't last and we didn't have money to get more.Never True11/22/2024Purpose - LifeAnswerDate RecordedPurpose and direction in life Bagyhnp04/11/2021CommentsNoSex and Gender InformationValueDate Recorded Sex Assigned at BirthNot on fileLegal IlsExkibo82/30/2020 1:53 PM EDTGender IdentityNot on fileSexual OrientationNot on file Last Filed Vital Signs Vital SignReadingTime TakenCommentsBlood Ctngzmhi030/80011/22/2024 12:01 PM EDT Ouyuz760811/22/2024 12:01 PM EDTTemperature--Respiratory Rate--Oxygen Saturation-- Inhaled Oxygen Concentration--Olebxc384.6 kg (288 lb)11/22/2024 12:01 PM EDT Fvkbkt035.2 cm (5' 7 )11/22/2024 12:01 PM EDTBody Mass Index45.11011/22/2024 12:01 PM EDT Plan of Treatment Health MaintenanceDue DateLast DoneCommentsDepression Njyscejvd11/01/2010dult BMI Follow Up Plan2016Influenza Wpikahf860/04/2020Adult BMI Vqgkatnah21/Tobacco Fkbiskmaq90/Pap Smear /TaP,Tdap and Td Vaccines (9 - Td or Tdap)11/18/2033 11/19/2023, 06/11/2020, 02/15/2011, Additional history exists Medical Devices Not on file Insurance
--- OUTSIDE RECORDS SUMMARY | 2025-08-23 08:36 | XMS_ITS | Clinical Summary ---
Author Organization [facility] Address [address] [place] [address] Care Team Providers Care Inspector Fibrous Wallboard Name Role Phone Anthony Gomez MD Primary Care Provider Allergies No known active allergies Medications MedicationSigDispense QuantityRefillsLast FilledStart DateEnd DateStatus aspirin 81 mg EC tablet Take 81 mg by mouth in the morning.Active 3-TQAM-BXBNE ACID-OM3 ORAL Take by mouth.Active magnesium oxide (Mag-Ox) 400 mg (241.3 mg magnesium) tablet Indications:HypomagnesemiaTake 1 tablet (400 mg) by mouth two times daily. 180 tablet /6Active OneTouch Ultra Test strip 5Active OneTouch Ultra2 Meter [facility] 5Active OneTouch Delica Plus Lancet 30 gauge [facility] 5Active magnesium oxide (Mag-Ox) 400 mg (241.3 mg magnesium) tablet Take 400 mg by mouth in the morning.Active Active Problems ProblemNoted DateDiagnosed DatePolyhydramnios affecting in third /20/3211Kkvrfphzfzhc24/02/7912Efbwgxikhjk78/02/2025Dyspnea on azjsbdzt27/02/2025lass 3 severe obesity due to excess calories without serious comorbidity with body mass index (BMI) of 40.0 to 44.9 in adult8 weeks gestation of dunzfldid90/02/7449Avnyssmqxx82/19/2025PCOS (polycystic ovarian syndrome)11/28/2023Encounter to discuss test xyeoycv5011/03/2023Insulin psqxolbdrm31/29/2024Irregular periods/menstrual rypcuj91/29/2024Comments Yes Family History Medical HistoryRelationNameCommentsDiabetesMaternal GrandfatherDiabetesMaternal GrandmotherDiabetesMotherRelationNameStatusCommentsMaternal GrandfatherMaternal GrandmotherMother Social History Tobacco UseTypesPacks/DayYears UsedDateSmoking Tobacco: Every DaySmokeless Tobacco: Current Tobacco Cessation:Ready to Q uit: Not Asked; Counseling Given: Not Answered Alcohol UseStandard Drinks/WeekCommentsNot Currently0 (1 standard drink = 0.6 oz pure alcohol)CommentsYesSex and Gender InformationValueDate RecordedSex Assigned at PubchTnegtn07/07/2025 1:17 PM EDTLegal AbqXauaoy34/11/2025 2:01 PM ESTGender XhnexfqwFtcrju08/07/2025 1:17 PM EDTSexual OrientationHeterosexual or Njbnikbm85/07/2025 1:17 PM EDT Last Filed Vital Signs Vital SignReadingTime TakenCommentsBlood Fdzblvuq240/8612/03/2024 10:42 AM EDT Nypgb20067/31/2025 10:42 AM EDTTemperature--Respiratory Rate--Oxygen Saturation 94%12/03/2024 10:42 AM EDTInhaled Oxygen Concentration--Zuuznn265 kg (286 lb) 12/03/2024 10:42 AM WEJYxeflr943.2 cm (5' 7 )12/03/2024 10:42 AM EDTBody Mass Index44.7912/03/2024 10:42 AM EDT Plan of Treatment Health MaintenanceDue DateLast DoneCommentsDepression Buwcrkmmi92/01/2010COVID- 19 Vaccine ( season)2025Influenza Vaccine (#1)2025 06/12/2020Pap Smear/dult Pjmiapt01/, 06/11/2020, 02/15/2011Zoster Vaccines (1 of 2)/, 06/18/1999 HIB ZwbccahxSazambczd17/14/1999, 1998, 1998, Additional history existsPneumococcal Vaccine: Pediatrics (0 to 5 Years) and At-Risk Patients (6 to 64 Years)Aged Out06/08/2001No longer eligible based on patient's age to complete this topicIPV KpenxudzXcrfxxkej90/03/2002, 12/02/1999, 1998, Additional history existsVaricella FptevcpkGolzzbrhc19/20/2007, 06/18/1999HPV Vaccines Imkmecxlu90/01/2016, 02/15/2011Meningococcal CpvztvySfjhevukb16/01/2016 Meningococcal B VaccineAged OutNo longer eligible based on patient's age to complete this topicRotavirus VaccinesAged OutNo longer eligible based on patient's age to complete this topic Insurance Care Teams Team MemberRelationshipSpecialtyStart DateEnd Date Anthony Gomez MD [address] [place] [address] PCP - GeneralFamily Medicine10/24/24
[2025-08-23 08:57] LABS: Hematocrit 45.8 % (36.0-48.0); Hemoglobin 14.8 g/dL (12.0-16.0); Immature Granulocytes Abs Auto 0.04 10^3/uL (0.00-0.03); Immature Granulocytes Pct Auto 0.4 % (0.0-0.5); Lymphocytes Absolute Auto 2.6 10^3/uL (1.2-3.8); Mean Corpuscular HGB Conc 32.3 g/dL (29.9-35.2); Mean Corpuscular Hemoglobin 27.9 pg (26.7-34.0); Mean Corpuscular Volume 86.3 fL (81.0-99.0); Platelet Count 305 10^3/uL (150-450); Red Blood Count 5.31 10^6/uL (4.20-5.40); White Blood Count 9.1 10^3/uL (4.0-11.0)
[2025-08-23 10:01] LABS: Alanine Aminotransferase 51 U/L (14-59); Albumin Globulin Ratio 1.1; Albumin Level 4.1 g/dL (3.4-5.0); Alkaline Phosphatase 75 U/L (46-116); Anion Gap 5.3; Aspartate Amino Transferase 29 U/L (15-37); Blood Urea Nitrogen 9.0 mg/dL (7.0-18.0); Calcium 9.2 mg/dL (8.5-10.1); Carbon Dioxide 28.4 mmol/L (21.0-32.0); Chloride 103 mmol/L (98-107); Estimated GFR (African America >60 (>=60 mL/min/1.73m^2); Estimated GFR (Non-African Ame >60 (>=60 mL/min/1.73m^2); Globulin 3.7 g/dL; Glucose 90 mg/dL (74-106); Potassium 3.7 mmol/L (3.5-5.1); Sodium 133 mmol/L (136-145); Thyroid Stimulating Hormone 0.805 uIU/mL (0.358-3.740); Total Protein 7.8 g/dL (6.4-8.2)
== END 2025-08-23 08:33 | disposition home or self-care (01) ==
LOC: LAB 08:34
PROVIDERS: PCP Family Medicine; Visit Provider Physician Assistant
DX: N91.2 Amenorrhea, unspecified (principal)
CPT/HCPCS: 36415; 80053; 83036; 84146; 84443; 84702; 85025